=== PATIENT | female | born 1980 | race Caucasian/White ===

== ENCOUNTER 2023-04-28 09:19 | Outpatient (OUT) | payer BC, SELFPAY ==
--- NOTE | 2023-04-28 10:15 | MM_ITS ---
Patient Name: CHAR ANN MR#: [id number] : 1980 Exam Date: 04/28/2023 Ordering Doctor: DR Sanjeev Lopez . RADIOLOGY REPORT PROCEDURE: MM TOMOSYNTHESIS SCREENING BI COMPARISON: [facility]M DIAGNOSTIC 3D RAMA CAD, 04/29/2022. INDICATIONS: Screening Calculator Name NCI Breast Cancer Risk Assessment Tool 5 Year Breast Cancer Risk 0.50% Lifetime Breast Cancer Risk 9.00% Personal Breast Cancer No Personal Ovarian Cancer No Treatments None Family Cancers Grandmother-maternal with stomach cancer at age 65. LOCATION: [facility] BREAST COMPOSITION: Scattered areas fibroglandular density. FINDINGS: DIAGNOSTIC CATEGORY 0--INCOMPLETE: NEED ADDITIONAL IMAGING EVALUATION. The breasts are stable in overall size and fibroglandular configuration.Scattered benign-appearing lymph nodes are present. Scattered benign-appearing calcifications are present. RIGHT BREAST: No significant suspicious finding. LEFT BREAST: New 1.1 x 0.8 cm area of focal asymmetry lower inner quadrant, 7 o'clock position, mid to posterior breast. Spot compression and ultrasound follow-up is recommended. RECOMMENDATIONS: ADDITIONAL MAMMOGRAPHIC VIEWS REQUIRED: LEFT BREAST - spot compression ULTRASOUND: LEFT BREAST PLEASE NOTE: A NORMAL MAMMOGRAM DOES NOT EXCLUDE THE POSSIBILITY OF BREAST CANCER. A CLINICALLY SUSPICIOUS PALPABLE LUMP SHOULD BE BIOPSIED. Dictated by: Mj Silva MD on 04/28/2023 at 12:41 Approved by: Mj Silva MD on 04/28/2023 at 12:43
== END 2023-04-28 09:20 | disposition home or self-care (01) ==
LOC: MAMMO 09:24
PROVIDERS: PCP Family Medicine; Visit Provider Obstetrics & Gynecology
DX: Z12.31 Encounter for screening mammogram for malignant neoplasm of breast (principal); Z80.0 Family history of malignant neoplasm of digestive organs; R92.8 Other abnormal and inconclusive findings on diagnostic imaging of breast
CPT/HCPCS: 77063; 77067

== ENCOUNTER 2023-05-10 07:32 | Outpatient (OUT) | payer BC, SELFPAY ==
--- OUTSIDE RECORDS SUMMARY | 2023-05-10 07:38 | XMS_ITS | CCD ---
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 you are unable to reach your usual health care provider, you should return to the Emergency Department, we are available 24 hours a day. For those patients who have received Radiology results, the interpretation of your X-ray as given to you by our Urgent Care physician is only a preliminary report. The Radiologist will review your films and if there is a change in the diagnosis you will be notified by phone. Please make sure you have provided a working phone number so we can reach you if necessary. In the event that you had a lab culture while you were a patient in the Urgent Care, you will be notified by phone if there is a need to change your antibiotic. Please make sure you have provided a working phone number so we can reach you if necessary. [facility] has provided you with a complete list of medications post discharge. Please inform your primary care sales representative/provider of your visit and for further instruction on these medications. Any specific questions regarding your chronic medications and dosages should be discussed with your primary care physician(s) and/or pharmacist. Additional medications on your home medication list not specifically addressed. Please contact the ordering physician if you have questions about these medications. amphetamine-dextroam phetamine (amphetamine-dextroa mphetamine 20 mg oral tablet) 1 tab(s) Oral (given by mouth). TAKE 1 TABLET BY MOUTH EVERY DAY AT MIDDAY. lisdexamfetamine (Vyvanse 50 mg oral capsule) 1 cap(s) Oral (given by mouth) once a day (in the morning). tirzepatide (Mounjaro 7.5 mg/0.5 mL subcutaneous solution) 7.5 Milligram Subcutaneous (under the skin). INJECT 0.5 ML UNDER THE SKIN 1 (ONE) TIME PER WEEK FOR 28 DAYS.. Visit Information Allergies: Substance Reaction Symptoms Type Comments No known allergies Drug Vital Signs: Vitals and Measurements this Visit (last charted value for your 03/09/2023 visit) Vital Signs This Visit Peripheral Pulse Rate: 97 bpm Respiratory Rate: 16 br/min Systolic Blood Pressure: 136 mmHg Diastolic Blood Pressure: 94 mmHg SpO2: 100 % Oxygen Therapy: Room air Measurements This Visit Height/Length Measured: 165.1 cm Weight Measured: 106.14 kg Weight Dosin.140 kg Body Mass Index: 38.94 kg/m2 Problems List: Problem Onset Comments No Problems found Patient Education Mallet Finger Mallet finger is an injury that occurs when an object hits the tip of your st (more content not included)... [facility] XR Finger Righton 03-09-2023 XR Finger Right CLINICAL HISTORY: Pain after injury. COMPARISON: None available. TECHNIQUE: PA, lateral, and oblique radiographs of the right fourth digit were obtained. FINDINGS: There is no fracture, dislocation, significant degenerative changes, worrisome bone destruction, pathologic calcifications, or other findings of concern identified. IMPRESSION: NO DISPLACED FRACTURE OR POSTTRAUMATIC COMPLICATION IDENTIFIED. Final Signed (Electronic Signature): Tee Argueta MD 03/09/23 11:56 a Technologist: Vannesa DANGELO [facility] No Panel Informationon 10-11 No acute bony abnormalities are noted [facility] EXAMINATION: THREE XRAY VIEWS OF THE RIGHT ANKLE; THREE XRAY VIEWS OF THE RIGHT FOOT 10/11/2022 4:30 pm COMPARISON: None. HISTORY: ORDERING SYSTEM PROVIDED HISTORY: inverted ankle today, pain TECHNOLOGIST PROVIDED HISTORY: inverted ankle today, pain Reason for Exam: Right ankle pain post fall; ORDERING SYSTEM PROVIDED HISTORY: injury TECHNOLOGIST PROVIDED HISTORY: injury Reason for Exam: Right dorsal pain and bruising post fall FINDINGS: The visualized bones are normal . There is no evidence of fracture or dislocation. . The joint spaces appear well maintained. Soft tissue swelling. Calcaneal spurs [facility] Miller Romo MD - 10/11/2022 EXAMINATION: THREE XRAY VIEWS OF THE RIGHT ANKLE; THREE XRAY VIEWS OF THE RIGHT FOOT 10/11/2022 4:30 pm COMPARISON: None. HISTORY: ORDERING SYSTEM PROVIDED HISTORY: inverted ankle today, pain TECHNOLOGIST PROVIDED HISTORY: inverted ankle today, pain Reason for Exam: Right ankle pain post fall; ORDERING SYSTEM PROVIDED HISTORY: injury TECHNOLOGIST PROVIDED HISTORY: injury Reason for Exam: Right dorsal pain and bruising post fall FINDINGS: The visualized bones are normal . There is no evidence of fracture or dislocation. . The joint spaces appear well maintained. Soft tissue swelling. Calcaneal spurs IMPRESSION: No acute bony abnormalities are noted [facility] Radiology Study observation (narrative) [facility] No Panel InformationOrdered By: Miller Romo on 10-11-2022 [facility] Work Phone: XR ANKLE RIGHT (MIN 3 VIEWS) on 10-11-2022 XR ANKLE RIGHT (MIN 3 VIEWS) EXAMINATION: THREE XRAY VIEWS OF THE RIGHT ANKLE; THREE XRAY VIEWS OF THE RIGHT FOOT 10/11/2022 4:30 pm COMPARISON: None. HISTORY: ORDERING SYSTEM PROVIDED HISTORY: inverted ankle today, pain TECHNOLOGIST PROVIDED HISTORY: inverted ankle today, pain Reason for Exam: Right ankle pain post fall; ORDERING SYSTEM PROVIDED HISTORY: injury TECHNOLOGIST PROVIDED HISTORY: injury Reason for Exam: Right dorsal pain and bruising post fall FINDINGS: The visualized bones are normal . There is no evidence of fracture or dislocation. . The joint spaces appear well maintained. Soft tissue swelling. Calcaneal spurs IMPRESSION: No acute bony abnormalities are noted Interpreted by: Miller Romo MD Signed by: Miller Romo MD 10/11/22 Final result Normal [facility] XR FOOT RIGHT (MIN 3 VIEWS)o n 10-11-2022 XR FOOT RIGHT (MIN 3 VIEWS) EXAMINATION: THREE XRAY VIEWS OF THE RIGHT ANKLE; THREE XRAY VIEWS OF THE RIGHT FOOT 10/11/2022 4:30 pm COMPARISON: None. HISTORY: ORDERING SYSTEM PROVIDED HISTORY: inverted ankle today, pain TECHNOLOGIST PROVIDED HISTORY: inverted ankle today, pain Reason for Exam: Right ankle pain post fall; ORDERING SYSTEM PROVIDED HISTORY: injury TECHNOLOGIST PROVIDED HISTORY: injury Reason for Exam: Right dorsal pain and bruising post fall FINDINGS: The visualized bones are normal . There is no evidence of fracture or dislocation. . The joint spaces appear well maintained. Soft tissue swelling. Calcaneal spurs IMPRESSION: No acute bony abnormalities are noted Interpreted by: Miller Romo MD Signed by: Miller Romo MD 10/11/22 Final result Normal [facility] PAP ACOG PANEL 2: 30 to 65on 07-16-2022 . . Normal [facility] Comment on above: Result Comment: Perf ormed at: WB Performed By: #### [id number] #### [facility] [address] [address] [address] Dang Kirby Age Gdln ACOG Testing 30-65 Normal [facility] Comment on above: Performed By: #### [id number] #### [facility] [address] [address] [address] Dang Kirby DIAGNOSIS: Comment Normal [facility] Comment on above: Result Comment: NEGA TIVE FOR INTRAEPITHELIAL LESION OR MALIGNANCY. THIS SPECIMEN WAS RESCREENED PART OF OUR BELT CUTTER PROGRAM. Performed at: WB Performed By: #### [id number] #### [facility] [address] [address] [address] Dang Kirby HPV Aptima Negative Normal Negative [facility] Comment on above: Result Comment: This nucleic acid amplification test detects fourteen high-risk HPV types (16,18,31,33,35,39,45,51,52,56,58,59,66,68) without differentiation. Performed at: =G Performed By: #### [id number] #### [facility] [address] [address] [address] Dang Kirby HPV Genotype Reflex Comment Normal [facility] Comment on above: Result Comment: Crit eria not met, HPV Genotype not performed. Performed at: WB Performed By: #### [id number] #### [facility] [address] [address] [address] Dang Kirby Methodology: Comment Normal [facility] Comment on above: Result Comment: This liquid based ThinPrep(R) pap test was screened with the use of an image guided system. Performed at: WB Performed By: #### [id number] #### [facility] [address] [address] [address] Dang Kirby Note: Comment Normal [facility] Comment on above: Result Comment: The Pap smear is a screening test designed to aid in the detection of premalignant and malignant conditions of the uterine cervix. It is not a diagnostic procedure and should not be used as the sole means of detecting cervical cancer. Both false-positive and false-negative reports do occur. . Performed at: WB Performed By: #### [id number] #### [facility] [address] [address] [address] Dang Kirby Performed by: Comment Normal [facility] Comment on above: Result Comment: Flavia Stanford, Regional Construction Manager (ASCP) Performed at: WB Performed By: #### [id number] #### [facility] [address] [place] [address] Dr. Dang Kirby QC reviewed by: Comment Normal [facility] Comment on above: Result Comment: Valentino Victor, Regional Construction Manager Performed at: WB Performed By: #### [id number] #### [facility] [address] [address] [address] Dang Kirby Specimen adequacy: Comment Normal [facility] Comment on above: Result Comment: Sati sfactory for evaluation. No endocervical component is identified. Performed at: WB Performed By: #### [id number] #### [facility] [address] [place] [address] Dr. Dang Kirby Otolaryngology Office/Clinic Noteon 06-06-2022 Otolaryngology Office/Clinic Note Chief Complaint left ear infection, possible eardrum rupture History of Present Illness Patient presents today as a self-referral for concerns for possible left-sided perforated eardrum. She states that she was sick in April and was diagnosed with bilateral acute otitis media she states that the infection has resolved but she still has diminished hearing on the left side. She is wondering if her eardrum could have perforated and that would be the cause for her diminished hearing. She believes her eardrums have perforated in the past. She states she has been having worsening nasal congestion which is being treated with Flonase. She is also having rhinorrhea and postnasal drip. She denies any sinus pressure. She has not had any otorrhea and has not been running a fever. Her son is being treated for perforated tympanic membranes and he has had diminished hearing and she is wondering if that could be what she is dealing with as well. She has not had any recent audiology, her diminished hearing has been ongoing since April. No other concerns today. Review of Systems All patrick are negative unless otherwise indicated by a Y General Fevers/chills Ears Ear pain Hearing loss Tinnitus Dizziness Nose Facial pain Nasal discharge Nasal congestion Nosebleeds Throat Postnasal drainage Y Mouth lesions Hoarseness Sore Throat Physical Exam Vitals & Measurements T: 36.6 ?C (Temporal Artery) HT: 167 cm WT: 132.7 kg WT: 132.7 kg (Dosing) BMI: 47.58 General: No acute distress, alert and oriented x3 Voice: Appropriate for age. Normal tone, volume, and projection noted. Head: Normocephalic atraumatic, no abnormal masses or lesions noted Face: Facial function symmetric and equal bilaterally. Ears: External ears and mastoids appear normal bilaterally. On the right, the ear canal is narrow but clear. There is mild retraction of the tympanic membrane with no evidence of perforation. On the left, the ear canal is clear but narrow. There is moderate atelectasis and retraction of the tympanic membrane. No evidence of perforation. No evidence of middle ear effusion or infection bilaterally. Nose: External nasal dorsum is straight. Neck: Neck is supple. Laryngeal crepitus is normal. Given the patient's complaints of hearing loss, comprehensive audiogram was performed today. This was personally reviewed with the patient today showing essentially normal hearing across all frequencies, although she does have very mild high-frequency loss likely as a result of her tympanic atelectasis. Tympanograms show retracted tracings bilaterally with a -145 on the right and -165 on the left. Word recognition scores are 92% at 60 dB on the right and 88% at 60 dB on the left. Additional Vitals No qualifying data available. Assessment/Plan Chronic dysfunction of both eustachian tubes Patient with a longstanding history of chronic eustachian tube dysfunction as well as chronic nasal congestion with evidence of tympanic membrane atelectasis and retraction on examination bilaterally today, more prominent on the left than on the right This may be contributing to some of her high-frequency hearing loss on the left, but otherwise she has normal hearing. Recommended continuation of use of Flonase Sensimist on a daily basis. I will also prescribe azelastine to be used on an as-needed basis or during allergy season for further management of chronic nasal congestion and chronic eustachian tube dysfunction. No other management needed at this time. Follow-up as needed. Chronic nasal congestion Tympanic atelectasis Time Spent with the Patient 2 or more stable chronic illnesses Prescription drug management New patient level 4 Provider Comments This note was generated using voice recognition software. Though proofreading has been done, there is still a chance of some unintentional typos and/or errors. Problem List/Past Medical History Ongoing History of migraine Historical No qualifying data Medications No active medications Allergies No Known Allergies Social History Tobacco Never (less than 100 in lifetime) Use:. Electronically signed by Anand Farrar MD 06/06/22 14:19 EST Electronically signed by Karyn Campbell 06/06/2022 13:16 EST Electronically signed by Ismael Walls PA-C 06/07/2022 07:58 EST Normal [facility] MG MAMM DIAGNOSTIC 3D RAMA CA Don 04-29-2022 MG MAMM DIAGNOSTIC 3D RAMA CAD Patient: KARUNA ANN Exam Date: 04/29/2022 : 1980 Gender:F Ordering : DR SANJEEV LOPEZ . Admission #: [id number] Family : Order #: [id number] CLICK HERE TO VIEW EXAM RADIOLOGY REPORT PROCEDURE: MAMMOGRAM DIAGNOSTIC 3D BILATERAL CAD, 04/29/2022, 10:05 ULTRASOUND BREAST RIGHT LIMITED, 04/29/2022, 11:04 COMPARISON: None. INDICATIONS: Pain of breast Calculator Name NCI Breast Cancer Risk Assessment Tool 5 Year Breast Cancer Risk Not Reported. Lifetime Breast Cancer Risk Not Reported. Personal Breast Cancer No Personal Ovarian Cancer No Treatments None Family Cancers None LOCATION: [facility] BREAST COMPOSITION: Scattered areas fibroglandular density. FINDINGS: DIAGNOSTIC CATEGORY 1--NEGATIVE. RIGHT BREAST: No significant suspicious finding. Ultrasound evaluation of the anterior breast demonstrates normal appearing fibroglandular tissue. No suspicious findings to account for patient's palpable lump. Annual screening mammography recommended. LEFT BREAST: No significant suspicious finding. RECOMMENDATIONS: ROUTINE MAMMOGRAM AND CLINICAL EVALUATION IN 12 MONTHS. PLEASE NOTE: A NORMAL MAMMOGRAM DOES NOT EXCLUDE THE POSSIBILITY OF BREAST CANCER. A CLINICALLY SUSPICIOUS PALPABLE LUMP SHOULD BE BIOPSIED. Dictated by: Tee Peterson M.D. on 04/29/2022 at 14:52 Approved by: Tee Peterson M.D. on 04/29/2022 at 14:55 Normal [facility] US BREAST RIGHT LIMITEDon US BREAST RIGHT LIMITED Patient: KARUNA ANN Exam Date: 04/29/2022 : 1980 Gender:F Ordering : DR SANJEEV LOPEZ . Admission #: [id number] Family : Order #: [id number] CLICK HERE TO VIEW EXAM RADIOLOGY REPORT PROCEDURE: MAMMOGRAM DIAGNOSTIC 3D BILATERAL CAD, 04/29/2022, 10:05 ULTRASOUND BREAST RIGHT LIMITED, 04/29/2022, 11:04 COMPARISON: None. INDICATIONS: Pain of breast Calculator Name NCI Breast Cancer Risk Assessment Tool 5 Year Breast Cancer Risk Not Reported. Lifetime Breast Cancer Risk Not Reported. Personal Breast Cancer No Personal Ovarian Cancer No Treatments None Family Cancers None LOCATION: [facility] BREAST COMPOSITION: Scattered areas fibroglandular density. FINDINGS: DIAGNOSTIC CATEGORY 1--NEGATIVE. RIGHT BREAST: No significant suspicious finding. Ultrasound evaluation of the anterior breast demonstrates normal appearing fibroglandular tissue. No suspicious findings to account for patient's palpable lump. Annual screening mammography recommended. LEFT BREAST: No significant suspicious finding. RECOMMENDATIONS: ROUTINE MAMMOGRAM AND CLINICAL EVALUATION IN 12 MONTHS. PLEASE NOTE: A NORMAL MAMMOGRAM DOES NOT EXCLUDE THE POSSIBILITY OF BREAST CANCER. A CLINICALLY SUSPICIOUS PALPABLE LUMP SHOULD BE BIOPSIED. Dictated by: Tee Peterson M.D. on 04/29/2022 at 14:52 Approved by: Tee Peterson M.D. on 04/29/2022 at 14:55 Normal [facility] Coding Summaryon 04-18-2022 Coding Summary HTMLBase 64 XnylyrvuRTr3zVs+PGhl YWQ+TN7DOQUrJ23ybUMn vU7NQ9fVYS2WJSMHASOX QD1BJX2moXA0AUepU7Yl biAv UjbuvKJcZL92ENf7GOV4 eIhrADxegT4uuDBlW5f4 DjOoDL08bW24YEjwKAZj EhG8BzEqqjwkzDZn Z9loLuEhgZCdSac+PHRh YmxlIHdpZHRoPScxMDAl ZwQjrXhzZA6kNt9fAWSy LWNvbGxhcHNlOiBj y8fjVNYzLXooUH4kyXre U8LqkTP3HCKrv3z4Wi33 dHI+TWBhMFH0nBwhIPfo r686XsNve2vxYCU2 kYOqZFhoBLH9G04ny9I2 MLHgUQEgAXJ8yZK5aK8w pYqlsmpoG7WuwZUtTqK7 VFW7hGTmoF8jfJmr iyeqlS5sEke+H13WLC7C BRXOIN8FVok9K3LtPbwy dHI+DM25IHGjCR09hSOc zHQuj0bjnRx2SpNf NWWuIMO2uAceFZmsd3Sc PMDiI80xxFBnz7S3PMYs tYisbXIvIsDviIV3gZ8m ZDuaxecqn7ctqszs Ohgvl6nqev81vV80Y96b QRevTZBkHNB4ILKlGOMd wHuonr1sgN9jMm3+IDxj j0htc0clzJo0OyTs LBBzqyFfpNhsSWT1x2Uu Ab48O6PsmIbhs2TmDdg8 qw54vUOvu7I8fNE0VPdp BHHmnT8lASqbQiK2 MNHfObHguY45wVGoEJof Bw4coVndeCsnAA4uODAi dcrqQWSnsX4cPCBiqVKb qIzjDG9tIQKpyjkf a095XeOdKKU8ZJKhtDWv E1XfbA6jEzTpMNObHOSd S9UuwECyYDrnO777NApr MbQ8DXXitiGfX0Qp HTVhvPsqTwY7z4P0Xy4L n7DbfqfcGCA5DGacFOVp WbK9ZpFkMiR4H3PdWhr4 ZJQqpZfoEF0mL0Sp VRIhztzrelcizSU0BRXl UUMsnA35dWOsMGunJj0u p6Z7h291BWIhEYKewE22 Un7baXfaSPRwvILW cV7dkofcr4eyhdfvQrXu IKDhZQd8KTy3TLSheLyy HxYlLNF7YdP8ZTW0wQQr mP7voSayhhrblA0i Oyc+E60hwO2zPZT6PBX1 zbrrSKKbteHuPW53AF01 E4LfJhyxrFSfbBJ+PGRp uhKnoCieAT8dLrHe x8gmz9ViOPepY1PgAZVk NIokOsy1LYClZBB5jDE7 sZ9xVOTqVNmqo0U0hSY9 R1KwzfQebk1cg1tj LCYvWMvuQ21fqXHop7V5 HYFxxEY1VMUwqBtrPnPa wY83Aug+WQWeoHbfx4Xv Evopl5ejy3mbgLw8 IjMwJSIgdmFsaWduPSJ0 f0TmFy30B63uZHjmLVYd JIDmEACaPIZelVxvgp3w jJ4mZr3+PGNvbCB3 aAP4fP2hCHHbWkU2TCqs P148BaSpdQFfSzszd6xs b7wnmSu9XoQqVIKzptYe zPwkDVW8k4IeMu21 A87kOXarMHFxQZRxHYZs KWXwdQtqgy9flB8zOj8+ DY5zu0opda24xU14bBJ+ KBGqTVU3aAhhBTeq WWQmmS7oUBorCzP8SYVz SxYjfB69wAZbOSgvFg4p cYkcvRlaQT6vFFTmbozl f333CfRmh1ftRQQq wKCnPPdkLVV6S89wj8N3 BKLaICBlDNN8yIT0tT1y bGlnbjogbGVmdDsgdmVy lIpdWRwrFSylI622 IHRvcDsnPlBhdGllbnQg XoTfDYu6X1ZiIkz5RDQd aBigML1tuIFiFMucJl7e oOkshPpvPJ3kONNu dbjom928XjPhn0ajLMIe pLHoNOvlUDY4J88ob6G3 QBUfORVxUZV3zRV7rP2w bGlnbjogbGVmdDsg lhKsjFkdWZcwDGciY363 IHRvcDsnPkJpcnRoIERh wFY6VZ89UG62wPLzz7Y8 kFB2Y5ZpHNEwmvzn qeecyWD0RWTdXJHbpR45 Cf4bfGjcGj2hHZNxFSM3 TRIfaQIeC2EtiX9dZnAu ITEcQUUiR4GvgJSa HJnrN922ZHbvUlT1XDGo boYqP7MdKPRcbSgbShG4 c9V7Gv8EW6W6TT84KM36 kVUbv8C4nRV1J8Ny VGKbkfvgqxfssSM3HAQj NTTllD67Xe5piGksBk3l DXMxLVZ8MERluKNaL3Hf zY5pDxIiPUGyMMBj Z2FyiTHcFVrkN254QGxt IkL5LIKsmwQxQ2UrEFJk gFzwNdS3p8R1Mv8KSUw2 QC22AS90zIJod6Q4 mFK6Z4KgVTUbejeafjth oKW9NWXzXQItqJ21Af2j lEycPq7nSINgHFT1CRLr gJLjW6OvzZ8oYjAh QBUuPXPaO8JlhPSzVUwh Z388ZDdfJvK7TBSsuvVs V7AfCTQjrCbvNuQ3s4K3 Du6JPTIaCE32DKL3 sUA5UN60IV25P6XaUcyc dGFibGU+PHRhYmxlIHdp ZHRoPScxMDAlJyBzdHls QU2vWt2oPHYdXBIs mTtphDAhOmDow6huZGAd DTdoJM3cbYpeF2HvcMD1 WXOzb8a1Wt04J64aO3Ej dXA+NYLkjCG4jES3 gO7aSfTuYsW3GWexG981 CnWgqCDyEzsdk0noz2fw eMq8MeJ4JBFcagYmbIws RDI7j0ThRi49Z31u IHdpZHRoPSIxNSUiIHZh qEhlbj1deE1mTz9+PGNv pPK7uHP4pP0mBzMpYbU0 YVlgU161BwQkyJAk Xkdoo6uyc1kzkUv3NwKo FFIzyuCkvRjwQQP2f8By Oh26T7IdlRwjx9IcVqg9 so63kQXlb0L4cVU5 O3NjHNWvaeezwDIuhRfh PN0pDCJfvgqoAOKtqB3p CIWdM6t4WpQrZvD3YIbi O6NzoiQ9VUHkkMDo BVhpMCZ1M54vt1O0HMEs PRDsDXT4qQX0xL4twZas bjogbGVmdDsgdmVydGlj GSftEMhtF077FMKi uUfgSEPfjG2tPDDdbNBb fXvgGL8vHBVialrwFjeN NIMQQMalAA6QRkZGBAZV G036K6RwEpr8UVVh bDirDZ3dyMUuNDgbJm8s sJvctJvrBR1iLPWzxdms XBAtfK7rDTIbrFHatPql WU7jQVYakstly348 QuHhXGQ9MMIffUZuG3Va hE0yThJmWERbWLHwL2Vt bKJbTPhdA060ELliUwU0 KPHsiaAaX8OxBMWr iVqsEtS0t6A7Wu1kZG2h BD1wYHnkEH32TR90qFJb a8V9vXQ6Q6MrPBEspjqu inaanQD7IARuQIDp bV99uCWvKYkiTr0ll3M0 p822TQXdPYIniH72Hv8o vGwcKEYokYPDiB7rmecy r7wigsziJuXhEPOk GFh5PDm0VURjfNkmNeVl CHF1YhE1BMZ5iVCkpL5v qCtvihfslN6dUzq+Mzkg GDYtccC0L6FtGxz2 LLPwoPzmTP8sfCLqNVwt Gm0qbJjqmIsaZD3mZHJy vhvvAVFwkZ3kVCTumGGp sNfoRJ4qCTQqnxax v639SpUfCAH0YFMeiSFy N9ImcE0yVyVmVZLrKHNj O3PwlZPvZLxsB977SDvl DkQ6ZITppuKnW2Wz UBXscVviJkE0t0S1No6K KQ3IEPL1A8HdHxe7IDGs eCsrWJ5isHGeOJahHv9r qPwtpRuxIW6tWTHu mqlmFRScnL3eKYXnjJJj eWltGP0fYOJrdunsr992 GxSsRSD1UXDuhYFeX2Ro pI4oPuDjLIPvJFMx B3OtqHOeGUpuZ375MNjm TsW2VYDxiwSlH8ArGSZg lWahAsM0g4O0Tw6ANWoe dGQ+LF97qk55F0Jk YvzxXil9TSEaRBA4sUV3 wC4mVCPfBVshn5D2jXE9 M1FoppKavn9sh7kwBINf ELszH74kaGIot1G7 RGHpbHM7CXVeeNtnXnZk sM77Vyb+GGWwtVftt2Cg Uovks1fmf2tmdOo5GhHi JSIgdmFsaWduPSJ0 h6ZhMv83H89hYMgdIMYo ULWwMAUuLDLsuSqxyg2u fJ7dYp8+ZENwpOZ9dCA4 cR5sHbAiWuA9CKwl D186ZyIreRUdVgjpp4tg t5cduEf7DqTxQWQawzOd lAkoWPK4d9ZgGr42A4Xc zUqde6DyCqn4do77 hOPny5V8tKH9U2PpYUTn oinstIQbcFvwGB0dQSDw hylrNHQwrN6zZFKoB1w2 AgZwVhA1LJckK8Kt xtS2MTKgzRMpSMLioMLY iN0ldgjqr6wwtyifPaXx CJEwOYc0FAs7KSUopWic PdOpZMQ3TfY8RIW6 mTSczY4hyWqrybwkhC8x Oyc+WEu3k2ideZRcXE0i kRY0UQ66UP36sDXil7L4 nUA6H3WhFVMebzhn gufvfGZ0GFHkZGFhiW25 Co2xcRxhQe4uLVGtBRY1 ZQZvuAClT0OydH9sDuCg JFNkKZHuF8PdhBYm OOrpA831WIzdPiQ2TIGs hmXxY8EmJGPnyNygJtN0 c8Z4Ea2PJB28DK19ZL72 rRLjx2E8cOA7M2Cf HCVatevdwbabhKK7HDFl QANqnF41Ad8nfUhcDl6f PNVyRPG5RNSqoEStW9Vh oK6tPbTbLMBvCUQf K4GenTKfTYsmI535GHtz WgD0LVXqvcBrP4XyUBGr aIpuOkJ1s0H2Sf3IMw48 SX63IX33zCGdm9E5 pST9S8IzTGQmovexupxp jDO0CHEeDRUsiD42Cf8l ePzgLj7zIMVuNHX1HXXz wSLsK5NkiO2rJeWu IQQaHWTzF0QwsCDzOGmz Q340AMypUlE6BGIjeiOe C1QrJVQavAjvVlU4p2D1 Bx0QJQbkevl4W8Mg PjwvdHI+SX62WKWvUC47 gNQikUOhu0hboNu1QdHp AHUdIZW2wZfhQHpjc6Om PYDsG26yjHOsr8M5 IGN (more content not included)... Normal [facility] ED Clinical Summaryon 2022 ED Clinical Summary [facility] ? Urgent Care [address] [place], [place] [id number] Clinical Summary PERSON INFORMATION Name: KARUNA ANN Age: 41 Years Sex: FEMALE : 1980 MRN: Acct#: Visit Reason: UC - Headache; BI LAT EAR PAIN, DIZZINESS, HEADACHE, CONGESTION Arrival: 04/08/2022 16:57:05 Discharge: 04/08/2022 19:05:00 LOS: 000 02:08 Check In: 04/08/2022 16:57:05 Checkout: 04/08/2022 19:05:00 Address: [address] [place] [id number] PCP: Mary Díaz DO PROVIDER INFORMATION Provider Role Assigned Unassigned Ad Ortega ED PA 04/08/2022 17:05:14 Mario RN, Olivia ED Nurse 04/08/2022 17:11:28 VITALS INFORMATION Vital Sign Triage Latest Temperature Tympanic Temperature Temporal Artery Pulse Rate O2 Sat 98 % 98 % Respiratory Rate Blood Pressure /90 mmHg /90 mmHg MEDICAL INFORMATION Medications Given: Medication Dose Route acetaminophen (Tylenol) 1000 mg PO ondansetron (!-Zofran) 4 mg PO ketorolac 60 mg IM Allergy Information: No known allergies PHYSICIAN DOCUMENTATION DISCHARGE INFORMATION: Discharge Disposition: Home Discharge Location: Home PATIENT EDUCATION INFORMATION Instructions: Otitis Media, Adult Follow-Up: With: Address: When: Mary Díaz [address] [place] [address] Business (1) Comments: Patient seen in urgent care and was found to have right severe acute otitis media, moderate severe left acute otitis media, bilateral ear disequilibrium, effusion, mild secondary nausea. She has a migraine headache the right side. No mastoid pain. Here in the the urgent care treated with Toradol 60 mg, Tylenol 100mg, Zofran 4mg. Advised pt to begin Augmentin 875 mg twice daily, Zofran every 8 hours as needed at home, Tylenol 500 mg every 4-6 hours next dose after 10 PM. Pain at discharge 09/10 Patient was advised if she develops worst headache of her life, unable to walk in a straight line, high fever to return to ER. She does not want further evaluation. DIAGNOSIS: Acute otitis media, bilateral; Headache, classical migraine; Inner ear dysfunction; Mild nausea Patient Understands: Yes - Patient/family/careg iver verbalizes understanding of instructions given Comment: Normal [facility] ED Patient Summaryon 023 ED Patient Summary [facility] ? Urgent Care [address] [place] [address] PATIENT DISCHARGE INSTRUCTIONS Patient Information Name: KARUNA ANN Age: 41 Years Date of : 1980 Reason For Visit: UC - Headache; BI LAT EAR PAIN, DIZZINESS, HEADACHE, CONGESTION Arrival Time: 04/08/2022 16:57:05 Primary Care Physician: Mary Díaz DO Attending Physician: Ad Ortega Comment: Patient Education With: Address: When: Mary Díaz [address], [place] [id number] Business (1) Comments: Patient seen in urgent care and was found to have right severe acute otitis media, moderate severe left acute otitis media, bilateral ear disequilibrium, effusion, mild secondary nausea. She has a migraine headache the right side. No mastoid pain. Here in the the urgent care treated with Toradol 60 mg, Tylenol 100mg, Zofran 4mg. Advised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 SYSTEM PROVIDED HISTORY: N/V/D; ab pain; possible Hx diverticulitis TECHNOLOGIST PROVIDED HISTORY: N/V/D; ab pain; possible Hx diverticulitis Decision Support Exception - unselect if not a suspected or confirmed emergency medical condition->Emergency Medical Condition (MA) Reason for Exam: Abdomen pain 41-year-old female with nausea, vomiting, diarrhea, abdominal pain FINDINGS: Lower Chest: Mild bibasilar atelectasis and respiratory motion. No free intra-abdominal air. Organs: Fatty liver. Prior cholecystectomy. Kidneys, adrenal glands, spleen, and pancreas grossly unremarkable in appearance. No obstructing calculus, hydronephrosis or hydroureter. GI/Bowel: No significant dilation of small bowel loops to suggest small bowel obstruction. Mild colonic diverticulosis. Fluid is seen within small bowel loops and ascending colon which can be seen as sequela of a gastroenteritis. Evidence of prior appendectomy. Pelvis: Uterus and adnexa grossly unremarkable. Pelvic phleboliths. No free fluid in the pelvis. Urinary bladder is collapsed. No inguinal or pelvic sidewall lymphadenopathy. Peritoneum/Retroperi toneum: Abdominal aorta normal in appearance and caliber. No retroperitoneal lymphadenopathy. Psoas muscles normal in size and symmetric in appearance. Bones/Soft Tissues: Small midline fat containing periumbilical hernia measuring up to 3.6 x 1.7 cm on image 120, series 2. Mild degenerative changes in the lumbar spine. Severe disc space narrowing at L5-S1. Mild levoscoliosis of the lumbar spine. [facility] R[facility] CONSOL[facility] Papito Mishra MD - 01/03/2022 EXAMINATION: CT OF THE ABDOMEN AND PELVIS WITH CONTRAST 01/03/2022 12:33 pm TECHNIQUE: CT of the abdomen and pelvis was performed with the administration of intravenous contrast. Multiplanar reformatted images are provided for review. Automated exposure control, iterative reconstruction, and/or weight based adjustment of the mA/kV was utilized to reduce the radiation dose to as low as reasonably achievable. COMPARISON: None HISTORY: ORDERING SYSTEM PROVIDED HISTORY: N/V/D; ab pain; possible Hx diverticulitis TECHNOLOGIST PROVIDED HISTORY: N/V/D; ab pain; possible Hx diverticulitis Decision Support Exception - unselect if not a suspected or confirmed emergency medical condition->Emergency Medical Condition (MA) Reason for Exam: Abdomen pain 41-year-old female with nausea, vomiting, diarrhea, abdominal pain FINDINGS: Lower Chest: Mild bibasilar atelectasis and respiratory motion. No free intra-abdominal air. Organs: Fatty liver. Prior cholecystectomy. Kidneys, adrenal glands, spleen, and pancreas grossly unremarkable in appearance. No obstructing calculus, hydronephrosis or hydroureter. GI/Bowel: No significant dilation of small bowel loops to suggest small bowel obstruction. Mild colonic diverticulosis. Fluid is seen within small bowel loops and ascending colon which can be seen as sequela of a gastroenteritis. Evidence of prior appendectomy. Pelvis: Uterus and adnexa grossly unremarkable. Pelvic phleboliths. No free fluid in the pelvis. Urinary bladder is collapsed. No inguinal or pelvic sidewall lymphadenopathy. Peritoneum/Retroperi toneum: Abdominal aorta normal in appearance and caliber. No retroperitoneal lymphadenopathy. Psoas muscles normal in size and symmetric in appearance. Bones/Soft Tissues: Small midline fat containing periumbilical hernia measuring up to 3.6 x 1.7 cm on image 120, series 2. Mild degenerative changes in the lumbar spine. Severe disc space narrowing at L5-S1. Mild levoscoliosis of the lumbar spine. IMPRESSION: 1. Fluid within small bowel loops and ascending colon which can be seen as sequela of a gastroenteritis. 2. Prior appendectomy. Prior cholecystectomy. 3. Fatty liver. 4. Mild colonic diverticulosis. 5. Small midline fat containing periumbilical hernia. 6. No clear evidence for small bowel obstruction. [facility] [employer] Phone: Radiology Study observation (narrative) [facility] [employer] Phone: CT ABDOMEN PELVIS W IV CONTR AST Additional Contrast? NoneOrdered By: Papito Mishra on 01-03-2022 [facility] [employer] Phone: Comp Metabolic Pr/rfx MGon 1 ALT [Catalytic activity/Vol] 28 U/L Normal 5-33 [facility] Comment on above: Performed By: #### H CG, LIP, MG, CDP, CMPX #### [id number] [place] [address] Technical Analyst: Estevan Corcoran MD (cont.) [facility] Comment on above: Result Comment: Aver age GFR for 30-39 years old: 107 mL/min/1.73sq m Chronic Kidney Disease: <60 mL/min/1.73sq m Kidney failure: <15 mL/min/1.73sq m eGFR calculated using average adult body mass. Additional eGFR calculator available at: http://www.[employer]/multiple_crcl_2012.htm Performed By: #### H CG, LIP, MG, CDP, CMPX #### [facility] [id number] [place] [address] Technical Analyst: Estevan Corcoran MD Albumin [Mass/Vol] 4.3 g/dL Normal 3.5-5.2 [facility] Comment on above: Performed By: #### H CG, LIP, MG, CDP, CMPX #### [place] [address] Technical Analyst: Estevan Corcoran MD Albumin/Glob Ratio 1.4 Normal 1.0-2.5 [facility] Comment on above: Performed By: #### H CG, LIP, MG, CDP, CMPX #### [place] [address] Technical Analyst: Estevan Corcoran MD Alkaline Phos 105 U/L High 35-104 [facility] Comment on above: Performed By: #### H CG, LIP, MG, CDP, CMPX #### [place] [address] Technical Analyst: Estevan Corcoran MD Anion gap [Moles/Vol] 13 mmol/L Normal 9-17 [facility] Comment on above: Performed By: #### H CG, LIP, MG, CDP, CMPX #### [place] [address] Technical Analyst: Estevan Corcoran MD AST [Catalytic activity/Vol] 26 U/L Normal <32 [facility] Comment on above: Performed By: #### H CG, LIP, MG, CDP, CMPX #### [place] [address] Technical Analyst: Estevan Corcoran MD Bilirubin [Mass/Vol] 0.3 mg/dL Normal 0.3-1.2 [facility] Comment on above: Performed By: #### H CG, LIP, MG, CDP, CMPX #### [place] [address] Technical Analyst: Estevan Corcoran MD Calcium [Mass/Vol] 8.7 mg/dL Normal 8.6-10.4 [facility] Comment on above: Performed By: #### H CG, LIP, MG, CDP, CMPX #### [place] [address] Technical Analyst: Estevan Corcoran MD Chloride [Moles/Vol] 104 mmol/L Normal 98-107 [facility] Comment on above: Performed By: #### H CG, LIP, MG, CDP, CMPX #### [place] [address] Technical Analyst: Estevan Corcoran MD CO2 [Moles/Vol] 21 mmol/L Normal 20-31 [facility] Comment on above: Performed By: #### H CG, LIP, MG, CDP, CMPX #### [place] [address] Technical Analyst: Estevan Corcoran MD Creatinine [Mass/Vol] 0.60 mg/dL Normal 0.50-0.90 [facility] Comment on above: Performed By: #### H CG, LIP, MG, CDP, CMPX #### [place] [address] Technical Analyst: Estevan Corcoran MD GFR, Amer >60 Normal >60 [facility] Comment on above: Performed By: #### H CG, LIP, MG, CDP, CMPX #### [place] [address] Technical Analyst: Estevan Corcoran MD GFR,non Amer >60 Normal >60 [facility] Comment on above: Performed By: #### H CG, LIP, MG, CDP, CMPX #### [address] [id number] Technical Analyst: Estevan Corcoran MD Glucose [Mass/Vol] 105 mg/dL High 70-99 [facility] Comment on above: Performed By: #### H CG, LIP, MG, CDP, CMPX #### [id number] Technical Analyst: Estevan Corcoran MD Potassium [Moles/Vol] 3.5 mmol/L Low 3.7-5.3 [facility] Comment on above: Performed By: #### H CG, LIP, MG, CDP, CMPX #### [place] [address] Technical Analyst: Estevan Corcoran MD Protein [Mass/Vol] 7.4 g/dL Normal 6.4-8.3 [facility] Comment on above: Performed By: #### H CG, LIP, MG, CDP, CMPX #### [place] [address] Technical Analyst: Estevan Corcoran MD Sodium [Moles/Vol] 138 mmol/L Normal 135-144 [facility] Comment on above: Performed By: #### H CG, LIP, MG, CDP, CMPX #### [id number] Technical Analyst: Estevan Corcoran MD Urea nitrogen [Mass/Vol] 12 mg/dL Normal 6-20 [facility] Comment on above: Performed By: #### H CG, LIP, MG, CDP, CMPX #### [address] [address] Technical Analyst: Estevan Corcoran MD Comprehensive Metabolic Pane l w/ Reflex to MGon 01-03-2022 Albumin [Mass/Vol] 4.3 g/dL 3.5 - 5.2 g/dL [facility] Albumin/Globulin [Mass ratio] 1.4 {ratio} 1 - 2.5 [facility] ALP (Bld) [Catalytic activity/Vol] 105 U/L High 35 - 104 U/L [facility] ALT [Catalytic activity/Vol] 28 U/L 5 - 33 U/L [facility] Anion gap [Moles/Vol] 13 mmol/L 9 - 17 mmol/L [facility] AST [Catalytic activity/Vol] 26 U/L NINF - 32 U/L [facility] Bilirubin [Mass/Vol] 0.3 mg/dL 0.3 - 1 .2 mg/dL [facility] Calcium [Mass/Vol] 8.7 mg/dL 8.6 - 10. 4 mg/dL [facility] Chloride [Moles/Vol] 104 mmol/L 98 - 10 7 mmol/L [facility] CO2 [Moles/Vol] 21 mmol/L 20 - 31 mmol/L [facility] Creatinine [Mass/Vol] 0.6 mg/dL 0.5 - 0.9 mg/dL [facility] GFR >60 60 - PI NF mL/min [facility] GFR Non- >60 60 - PINF mL/min [facility] GFR/1.73 sq M.predicted MDRD (S/P/Bld) [Vol rate/Area] [facility] Comment on above: Average GFR for 30-3 9 years old: 107 mL/min/1.73sq m Chronic Kidney Disease: <60 mL/min/1.73sq m Kidney failure: <15 mL/min/1.73sq m eGFR calculated using average adult body mass. Additional eGFR calculator available at: http://www.[employer]/multiple_crcl_2012.htm Glucose [Mass/Vol] 105 mg/dL High 70 - 99 mg/dL [facility] Interpretation and review of laboratory results Abnormal [facility] Potassium [Moles/Vol] 3.5 mmol/L Low 3.7 - 5.3 mmol/L [facility] Protein [Mass/Vol] 7.4 g/dL 6.4 - 8.3 g/dL [facility] Sodium [Moles/Vol] 138 mmol/L 135 - 144 mmol/L [facility] Urea nitrogen (BldV) [Mass/Vol] 12 mg/dL 6 - 20 mg/dL [facility] HCG Qualitative, Serumon hCG Qual Negative NEGATIVE [facility] Comment on above: Specimens with hCG l evels near the threshold of the test (25 mIU/mL) may give a negative or indeterminate result. In such cases, another test should be performed with a new specimen in 48-72 hours. If early is suspected clinically in this setting, correlation with quantitative serum b-hCG level is suggested. [facility] has confirmed the use of plasma for this test. This has not been cleared or approved by the U.S. Food and Drug Administration. The FDA has determined that such clearance is not necessary. [facility] HCG Screen, Bloodon 01-04-20 HCG Screen, Blood Negative Normal NEG [facility] Comment on above: Result Comment: Spec imens with hCG levels near the threshold of the test (25 mIU/mL) may give a negative or indeterminate result. In such cases, another test should be performed with a new specimen in 48-72 hours. If early is suspected clinically in this setting, correlation with quantitative serum b-hCG level is suggested. [facility] for [facility] test. This has not been cleared or approved by the U.S. Food and Drug Administration. The FDA has determined that such clearance is not necessary. Performed By: #### H CG, LIP, MG, CDP, CMPX #### [address] [address] Technical Analyst: Estevan Corcoran MD Lipaseon 01-03-2022 Lipase [Catalytic activity/Vol] 20 U/L Normal 13-60 [facility] Comment on above: Performed By: #### H CG, LIP, MG, CDP, CMPX #### [id number] [place] [address] Technical Analyst: Estevan Corcoran MD Lipase [Catalytic activity/Vol] 20 U/L 13 - 60 U/L [facility] Magnesiumon 01-03-2022 Magnesium [Mass/Vol] 2.1 mg/dL Normal 1.6-2.6 [facility] Comment on above: Performed By: #### H CG, LIP, MG, CDP, CMPX #### [id number] [place] [address] Technical Analyst: Estevan Corcoran MD Magnesium [Mass/Vol] 2.1 mg/dL 1.6 - 2 .6 mg/dL [facility] Microscopic Urinalysison Bacteria, UA MANY Abnormal None [facility] Epithelial Cells UA TOO NUMEROUS TO COUNT [facility] Interpretation and review of laboratory results Abnormal [facility] Other Observations UA Utilizing a urinalysis as the only screening method to exclude a potential uropathogen can be unreliable in many patient populations. Rapid screening tests are less sensitive than culture and if UTI is a clinical possibility, culture should be considered despite a negative urinalysis. Abnormal NOT REQ. [facility] RBC, UA 2 TO 5 [facility] WBC, UA 2 TO 5 [facility] UA w/Reflex Cultureon 2021 Bilirubin, SemiQt,Ur Negative Normal NEG [facility] Comment on above: Performed By: #### U AX, UMICAO ####[address] [address] Lab Director: Estevan Corcoran MD Blood, Urine LARGE Abnormal NEG [facility] Comment on above: Performed By: #### U AX, UMICAO ####[address] [address] Lab Director: Estevan Corcoran MD Clarity (U) Cloudy Abnormal CLEAR [facility] Comment on above: Result Comment: FOUL ODOR Performed By: #### U AX, UMICAO ####[address] [address] Lab Director: Estevan Corcoran MD Color (U) Yellow Normal YEL [facility] Comment on above: Performed By: #### U AX, UMICAO ####[address] [address] Lab Director: Estevan Corcoran MD Glucose Ql (U) Negative Normal NEG [facility] Comment on above: Performed By: #### U AX, UMICAO ####[address] [address] Lab Director: Estevan Corcoran MD Ketones Ql (U) Negative Normal NEG [facility] Comment on above: Performed By: #### U AX, UMICAO ####[address] [address] Lab Director: Estevan Corcoran MD Leukocyte esterase Test strip Ql (U) Negative Normal NEG [facility] Comment on above: Performed By: #### U AX, UMICAO ####[address] [address] Lab Director: Estevan Corcoran MD Nitrite,Ur Negative Normal NEG [facility] Comment on above: Performed By: #### U AX, UMICAO ####[address] [address] Lab Director: Estevan Corcoran MD PH,Ur 6.0 Normal 5.0-8.0 [facility] Comment on above: Performed By: #### U AX, UMICAO ####[place] [address] Lab Director: Estevan Corcoran MD Protein Ql (U) Negative Normal NEG [facility] Comment on above: Performed By: #### U AX, UMICAO ####[place] [address] lab Director: Estevan Corcoran MD Spec. [place],Ur 1.108 High 1.005-1.030 [facility] Comment on above: Result Comment: POST IV CONTRAST Performed By: #### U AX, UMICAO ####[place] [address] lab Director: Estevan Corcoran MD Urobilinogen,Ur Normal Normal NORM [facility] Comment on above: Performed By: #### U AX, UMICAO ####[place] [address] lab Director: Estevan Corcoran MD Urinalysis with Reflex to Cu ltureon 01-03-2022 Bilirubin Urine Negative NEGATIVE [facility] Talking Data Color, UA Yellow Yellow [facility] Glucose, Ur Negative NEGATIVE [facility] Interpretation and review of laboratory results Abnormal [facility] Ketones Ql (U) Negative NEGATIVE [facility] Leukocyte esterase Test strip Ql (U) Negative NEGATIVE [facility] Nitrite, Urine Negative NEGATIVE [facility] pH, UA 6.0 5 - 8 [facility] Protein, UA Negative NEGATIVE [facility] Specific [place], UA 1.108 High 1.005 - 1.03 [facility] Comment on above: POST IV CONTRAST Turbidity UA Cloudy Abnormal Clear [facility] Comment on above: FOUL ODOR Urine Hgb LARGE Abnormal NEGATIVE [facility] Urobilinogen, Urine Normal Normal [facility] Urinalysis,Microon 2 Bacteria MANY Abnormal NONE [facility] Comment on above: Performed By: #### U AX, UMICAO ####[address] [id number] Lab Director: Estevan Corcoran MD Epithelial cells LM Ql (Urine sed) TOO NUMEROUS TO COUNT Normal 0-5 [facility] Comment on above: Performed By: #### U AX, UMICAO ####[address] [address] Lab Director: Estevan Corcoran MD Other Observations Utilizing a urinalysis as the only screening method to exclude a potential Abnormal NREQ [facility] Comment on above: Result Comment: urop athogen can be unreliable in many patient populations. Rapid screening tests are less sensitive than culture and if UTI is a clinical possibility, culture should be considered despite a negative urinalysis. Performed By: #### U AX, UMICAO ####[address] [address] Lab Director: Estevan Corcoran MD Urine RBC's 2 TO 5 Normal 0-2 [facility] Comment on above: Performed By: #### U AX, UMICAO ####[address] [id number] Lab Director: Estevan Corcoran MD Urine WBC's 2 TO 5 Normal 0-5 [facility] Comment on above: Performed By: #### U AX, UMICAO ####[address] [id number] Lab Director: Estevan Corcoran MD CT LUMBAR SPINE WO CONTRASTo n 08-19-2021 Degenerative disc disease at L4-L5 and L5-S1. At L4-L5, there is a broad-based left paracentral left foraminal disc protrusion/herniatio n. At L5-S1, there is a partially calcified left paracentral disc herniation with slight inferior extension. The left-sided disc disease is of uncertain etiology in this patient with history of right leg pain. Follow-up MRI may be helpful. [facility] CONSOLIDATED EXAMINATION: CT OF THE LUMBAR SPINE WITHOUT CONTRAST 08/19/2021 TECHNIQUE: CT of the lumbar spine was performed without the administration of intravenous contrast. Multiplanar reformatted images are provided for review. Adjustment of mA and/or kV according to patient size was utilized. Automated exposure control, iterative reconstruction, and/or weight based adjustment of the mA/kV was utilized to reduce the radiation dose to as low as reasonably achievable. COMPARISON: None HISTORY: ORDERING SYSTEM PROVIDED HISTORY: pain TECHNOLOGIST PROVIDED HISTORY: pain Decision Support Exception - unselect if not a suspected or confirmed emergency medical condition->Emergency Medical Condition (MA) Is the patient ?->No Reason for Exam: Pain to low back and down rt leg for a week or so with no known injury. Bruising to site of low back pain FINDINGS: BONES/ALIGNMENT: Study is limited by obesity. There is a minimal lumbar levoscoliosis. Vertebral body alignment is otherwise unremarkable. The vertebral body heights are maintained. No osseous destructive lesion is seen. No acute fracture or traumatic malalignment. DEGENERATIVE CHANGES: There is degenerative disc disease at L5-S1 with moderate to severe disc space narrowing and mild spondylosis. There is a partially calcified left paracentral disc herniation with slight inferior extension impinging on the thecal sac and left S1 nerve root. At L4-L5, there is a left foraminal and left paracentral disc protrusion/herniatio n (axial image [id number]). SOFT TISSUES/RETROPERITON EUM: No paraspinal mass is seen. [facility] Boyd Beatty MD - 08/19/2021 EXAMINATION: CT OF THE LUMBAR SPINE WITHOUT CONTRAST 08/19/2021 TECHNIQUE: CT of the lumbar spine was performed without the administration of intravenous contrast. Multiplanar reformatted images are provided for review. Adjustment of mA and/or kV according to patient size was utilized. Automated exposure control, iterative reconstruction, and/or weight based adjustment of the mA/kV was utilized to reduce the radiation dose to as low as reasonably achievable. COMPARISON: None HISTORY: ORDERING SYSTEM PROVIDED HISTORY: pain TECHNOLOGIST PROVIDED HISTORY: pain Decision Support Exception - unselect if not a suspected or confirmed emergency medical condition->Emergency Medical Condition (MA) Is the patient ?->No Reason for Exam: Pain to low back and down rt leg for a week or so with no known injury. Bruising to site of low back pain FINDINGS: BONES/ALIGNMENT: Study is limited by obesity. There is a minimal lumbar levoscoliosis. Vertebral body alignment is otherwise unremarkable. The vertebral body heights are maintained. No osseous destructive lesion is seen. No acute fracture or traumatic malalignment. DEGENERATIVE CHANGES: There is degenerative disc disease at L5-S1 with moderate to severe disc space narrowing and mild spondylosis. There is a partially calcified left paracentral disc herniation with slight inferior extension impinging on the thecal sac and left S1 nerve root. At L4-L5, there is a left foraminal and left paracentral disc protrusion/herniatio n (axial image [id number]). SOFT TISSUES/RETROPERITON EUM: No paraspinal mass is seen. IMPRESSION: Degenerative disc disease at L4-L5 and L5-S1. At L4-L5, there is a broad-based left paracentral left foraminal disc protrusion/herniatio n. At L5-S1, there is a partially calcified left paracentral disc herniation with slight inferior extension. The left-sided disc disease is of uncertain etiology in this patient with history of right leg pain. Follow-up MRI may be helpful. [email or web address] Phone: Radiology Study observation (narrative) [email or web address] Phone: CT LUMBAR SPINE WO CONTRASTO rdered By: Boyd Beatty on 08-19-2021 [email or web address] Phone: Vital Signs Date Time Vital Sign Value Performing Clinician Facility 01-02-2023 10:00-0400 Body height 162.56 cm Johnathon Winter Other [facility] Other 01-02-2023 10:00-0400 Body mass index (BMI) [Ratio] 42.91 kg/m2 Johnathon Winter Other [facility] Other 01-02-2023 10:00-0400 Body weight 113.4 kg Johnathon Winter Other [facility] Other 01-02-2023 10:00-0400 Diastolic blood pressure 82 mm[Hg] Johnathon Winter Other [facility] Other 01-02-2023 10:00-0400 Systolic blood pressure 126 mm[Hg] Johnathon Winter Other [facility] Other 2022 11:00-0400 Body height 162.56 cm Johnathon Winter Other [facility] Other 2022 11:00-0400 Body mass index (BMI) [Ratio] 44.56 kg/m2 Johnathon Winter Other [facility] Other 2022 11:00-0400 Body weight 117.75 kg Johnathon Winter Other [facility] Other 2022 11:00-0400 Diastolic blood pressure 101 mm[Hg] Johnathon Winter Other [facility] Other 2022 11:00-0400 SaO2% (BldA) [Mass fraction] 100 % Johnathon Winter Other [facility] Other 2022 11:00-0400 Systolic blood pressure 138 mm[Hg] Johnathon Winter Other [facility] Other 10-11-2022 18:45-0400 Body height 165.1 cm Roxie Garcia MD Work Phone: [facility] 10-11-2022 18:45-0400 Body mass index (BMI) [Ratio] 43.93 kg/m2 Roxie Garcia MD Work Phone: [employer] 10-11-2022 18:45-0400 Body temperature 99 [degF] Roxie Garcia MD Work Phone: [facility] [employer] 10-11-2022 18:45-0400 Body weight 119.75 kg Roxie Garcia MD Work Phone: [facility] [employer] 10-11-2022 18:45-0400 Diastolic blood pressure 108 mm[Hg] Roxie Garcia MD Work Phone: [facility] [employer] 10-11-2022 18:45-0400 Heart rate 87 /min Roxie Garcia MD Work Phone: [facility] [employer] 10-11-2022 18:45-0400 Respiratory rate 16 /min Roxie Garcia MD Work Phone: [facility] [employer] 10-11-2022 18:45-0400 SaO2% (BldA) [Mass fraction] 98 % Roxie Garcia MD Work Phone: [facility] [employer] 10-11-2022 18:45-0400 Systolic blood pressure 160 mm[Hg] Roxie Garcia MD Work Phone: [facility] [employer] 01-03-2022 13:54-0400 Diastolic blood pressure 95 mm[Hg] Teo Thomas DO [employer] 01-03-2022 13:54-0400 Heart rate 61 /min Teo Thomas DO [facility] 01-03-2022 13:54-0400 SaO2% (BldA) [Mass fraction] 100 % Teo Thomas DO [facility] 01-03-2022 13:54-0400 Systolic blood pressure 142 mm[Hg] Teo Thomas DO [facility] 01-03-2022 11:46-0400 Body height 165.1 cm Teo Thomas DO [facility] 01-03-2022 11:46-0400 Body mass index (BMI) [Ratio] 44.1 kg/m2 Teo Thomas DO [employer] [facility] [employer] 01-03-2022 11:46-0400 Body temperature 97.7 [degF] Teo [facility] [employer] 01-03-2022 11:46-0400 Body weight 120.2 kg Teo Thomas DO [employer] [facility] [employer] 01-03-2022 11:46-0400 Respiratory rate 16 /min Teo Morean DO [facility] 08-19-2021 18:03-0400 Diastolic blood pressure 98 mm[Hg] Radha Sanders MD Work Phone: [employer] 08-19-2021 18:03-0400 Heart rate 92 /min Radha Sanders MD Work Phone: [employer] 08-19-2021 18:03-0400 Respiratory rate 16 /min Radha Sanders MD Work Phone: [employer] 08-19-2021 18:03-0400 SaO2% (BldA) [Mass fraction] 96 % Radha Sanders MD Work Phone: [employer] 08-19-2021 18:03-0400 Systolic blood pressure 145 mm[Hg] Radha Sanders MD Work Phone: [employer] 08-19-2021 16:28-0400 Body height 165.1 cm Radha Sanders MD Work Phone: [employer] 08-19-2021 16:28-0400 Body mass index (BMI) [Ratio] 45.76 kg/m2 Radha Sanders MD Work Phone: [employer] 08-19-2021 16:28-0400 Body temperature 98.6 [degF] Radha Sanders MD Work Phone: [employer] 08-19-2021 16:28-0400 Body weight 124.74 kg Radha Sanders MD Work Phone: [employer] Encounters Encounter Date Encounter Type Care Provider Facility Start: 05-04-2023 End: 05-05-2023 ambulatory OSWALDO DEE Not Available Start: 05-04-2023 End: 05-04-2023 Office outpatient visit 10 minutes Oswaldo Dee [employer]INE[employer] Work Phone: [facility] Comment on above: 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); Pain in finger of right hand Start: 05-01-2023 End: 05-01-2023 ambulatory SANJEEV LOPEZ Not Available Start: 04-19-2023 End: 04-19-2023 ambulatory Scottie Lyn Other [facility] Other Start: 04-19-2023 Telephone encounter Scottie Lyn [facility] Start: 04-14-2023 End: 04-14-2023 Orders Only Serina Rodriguez RMA [facility] Comment on above: Back pain, unspecifi ed back location, unspecified back pain laterality, unspecified chronicity (Primary Dx) Start: 04-12-2023 End: 04-12-2023 ambulatory Johnathon Winter Other [facility] Other Start: 04-12-2023 Telephone encounter Johnathon Winter [facility] Start: 04-11-2023 End: 04-11-2023 ambulatory Johnathon Winter Other [facility] Other Start: 04-11-2023 Telephone encounter Johnathon Winter [facility] Start: 04-10-2023 End: 04-10-2023 ambulatory Johnathon Winter Other [facility] Other Start: 04-10-2023 Encounter by computer link Johnathon lee [facility] Start: 03-16-2023 End: 03-16-2023 ambulatory OSWALDO DEE Not Available Start: 03-09-2023 End: 03-09-2023 ambulatory Sanchez DICKEY Facility:[facility] Start: 01-30-2023 End: 01-30-2023 ambulatory Johnathon Winter Other [facility] Other Start: 01-30-2023 Telephone encounter Johnathon Winter [facility] Start: 01-02-2023 End: 01-02-2023 ambulatory Johnathon Winter Other [facility] Other Start: 01-02-2023 Office outpatient vi sit 15 minutes Johnathonarden Winter [facility] Start: 12-09-2022 End: 12-09-2022 ambulatory Johnathon Winter Other [facility] Other Start: 12-09-2022 Telephone encounter Johnathon Winter [facility] Start: 12-08-2022 End: 12-08-2022 ambulatory Johnathon Winter Other [facility] Other Start: 12-08-2022 Telephone encounter Johnathon Winter [facility] Start: 2022 End: 2022 ambulatory Johnathon Winter Other [facility] Other Start: 2022 Office outpatient ne w 30 minutes Johnathon Laura [facility] Start: 10-11-2022 End: 10-11-2022 Emergency department patient visit JOHNATHON WINTER [facility] Start: 10-11-2022 End: 10-11-2022 Emergency department patient visit Roxie Garcia MD Work Phone: [facility] Comment on above: Sprain of right ankl e, unspecified ligament, initial encounter (Primary Dx) Start: 07-11-2022 End: 07-11-[address] SANJEEV LOPEZ . Facility:[facility] Start: 06-06-2022 End: 06-07-2022 ambulatory Anand Farrar MD Facility[facility] Start: 05-10-2022 ambulatory Anand Sweeney MD Facility[facility] Start: 04-29-2022 End: 04-30-[address] SANJEEV LOPEZ . Facility:[facility] Start: 04-08-2022 End: 04-08-2022 ambulatory Mary Díaz Facility:[facility] Start: 02-16-2022 End: 02-16-2022 Emergency department patient visit JOHNATHON WINTER [facility] Start: 01-03-2022 End: 01-03-2022 Emergency department patient visit JOHNATHON WINTER [facility] Start: 01-03-2022 End: 01-03-2022 Emergency department patient visit Teo Thomas DO [facility] ED Comment on above: Gastroenteritis (Neetu emil Dx) Start: 08-19-2021 End: 08-19-2021 Emergency department patient visit Radha Sanders MD Work Phone: [facility] ED Comment on above: Herniated lumbar int ervertebral disc (Primary Dx) Procedures Date Procedure Procedure Detail Performing Clinician Start: 10-11-2022 Radex ankle complete minimum 3 views Baliee Lew [employer] - COMMERCIAL DESIGNER Work Phone: Start: 01-03-2022 Urinalysis microscop ic only Zachariah Cristian [employer] - HARB[employer] ENGINEER Work Phone: Start: 01-03-2022 Urnls dip stick/tabl et rgnt auto w/o microscopy Zachariah Foster [employer] - HARBOR ENGINEER Work Phone: Start: 01-03-2022 Ct abdomen & pelvis w/contrast material Zachariah Foster [employer] - HARBOR ENGINEER Work Phone: Start: 01-03-2022 Assay of lipase Zachariah Cristian [employer] - HARBOR ENGINEER Work Phone: Start: 12-01-2021 Adult depression scr eening assessment Serina Rodriguez RMA Start: 08-19-2021 Ct lumbar spine w/o contrast material Radha Sanders MD Work Phone: Plan of Treatment Date Care Activity Detail Author Start: 04-14-2024 Adult [facility]ening [facility] Start: 04-14-2024 Tobacco Screening [facility] Start: 07-17-2023 End: 07-17-2023 Patient encounter procedure 07/17/2023 10:00 AM EDT Office Visit [facility] [address] [place] [address] Sanjeev Lopez, DO [address] [place] [address] [facility] Start: 05-16-2023 End: 05-16-2023 Patient encounter procedure 05/16/2023 1:45 PM EST Office Visit [facility] [address] [place] [address] Titus Cavazos MD [address] [place] [address] [facility] Start: 05-08-2023 End: 05-08-2023 Patient encounter procedure 05/08/2023 1:30 PM EST Office Visit [facility] [address] [place] [place] [address] Reny No, [employer] G[employer]NER-COMMERCIAL DESIGNER [address] [place] [address] [facility] Start: 04-14-2023 End: 04-14-2024 XR Lumbar spine Views W flexion and W extension X-ray spine lumbar ap, lateral, flexion and extension only Imaging Routine Back pain, unspecified back location, unspecified back pain laterality, unspecified chronicity Expected: 04/14/2023, Expires: 04/14/2024 [facility] Work Phone: Comment on above: Expected: 04/14/2023 , Expires: 04/14/2024 Start: 12-02-2022 Influenza vaccination Influenza Vacc ine [facility] Start: 12-01-2022 Depression Screening Depression Scre jolene [facility] Start: 11-01-2022 Influenza vaccination Flu vaccine (# 1) [facility] Start: 12-02-2021 Influenza vaccination Flu vacc ine (Season Ended) [facility] Start: 11-01-2021 Influenza vaccination Flu vaccine (# 1) [facility] Start: 2017 Diabetes screen Diabetes screen [facility] Start: 2012 Screening for malign ant neoplasm of cervix [facility] Start: 12-01-2003 Screening for malign ant neoplasm of cervix Pap smear [facility] Start: 2001 DTaP,Tdap and Td Vaccines (1 - Tdap) DTaP,Tdap and Td Vaccines (1 - Tdap) [facility] Start: 2001 DTaP/Tdap/Td vaccine (1 - Tdap) DTaP/Tdap/Td vaccine (1 - Tdap) [facility] Start: 2000 Hepatitis C screening Hepatitis C sc reen [facility] Start: 1994 Depression Screen Depression Screen [facility] Start: 12-01-1987 COVID-19 Vaccine (1) COVID-19 Vaccin e (1) [facility] Start: 12-01-1983 Varicella vaccine (1 of 2 - 2-dose childhood series) Varicella vaccine (1 of 2 - 2-dose childhood series) [facility] Start: 06-01-1983 COVID-19 Vaccine (#1) COVID-19 Vacci ne (#1) GIANA PEREZ [facility] Payers Date Payer Category Payer Unknown 2022 Unknown [id number] 2020 Unknown [id number] [id number] [id number] 1982 Unknown [id number] 2.. [id number] 1982 Unknown [id number] 2.16.84 [id number] 1982 Unknown [id number] 2.16.84 [id number] 1982 Unknown [id number] 2.16. [id number] 1982 Unknown [id number] 2.16. [id number] 1982 Unknown [id number] 2.16. [id number] 1982 Unknown [id number] 2.16.8 [id number] 1982 Unknown [id number] 2.16.8 [id number] 1982 Unknown [id number] 2.16.84 [id number] 1982 Unknown [id number] 2.16.84 [id number] 1982 Unknown [id number] 2.16.84 [id number] 1982 Unknown [id number] [id number] 1982 Unknown [id number] 2.16.8 [id number] 1959 Unknown [id number] Social History Date Type Detail Facility Start: 06-15-2015 End: 10-09-2022 Tobacco smoking status [facility] Never smoked tobacco [employer] Start: 06-15-2015 End: 10-09-2022 Tobacco use and exposure Smokeless tobacco non-user [employer] Phone: Start: 08-19-2021 End: 04-14-2023 Alcohol intake Current non-drinker of alcohol (finding) [employer] Phone: Start: 08-19-2021 End: 05-04-2023 Alcohol intake [facility] Start: 06-15-2015 History SDOH Alcohol Comment rarely [employer] Phone: Start: 1980 Sex Assigned At Not on file [employer] Phone: Start: 08-09-2021 End: 01-03-2022 Exposure to SARS-CoV-2 (event) Not sure [employer] Phone: History of tobacco use Passive smoker [facility] [address] Phone: Start: 04-14-2023 End: 05-04-2023 Sex Assigned At [facility] Adolescent depressio n screening assessment 0 [facility] Start: 05-04-2023 Alcohol intake Ex-drinker (finding) [facility] Start: 10-09-2022 Alcohol Comment Alcohol: 1 or 2 drinks on typical day/monthly or less. Caffeine: 1-2 cups/day tea [facility] Start: 1980 Sex Assigned At Female [facility] Start: 09-21-2022 Gender identity Identifies as female gender (finding) [facility] Start: 09-21-2022 Sexual orientation Heterosexual (finding) [facility] Clinical Notes 08-19-2021 to 05-04-2023 Oswaldo Dee, HARBOR ENGINEER - 05/04/2023 10:00 AM EST Note Date & Type Note Facility 05-04-2023 History of Mya t illness Narrative Chief Complaint Patient presents with Right Ring Finger - Follow-up HISTORY OF PRESENT ILLNESS: Karuna Ann is an 42 y.o. @ female. RT RF injury x ~ 10 weeks (02/2023). Pt was putting towels into the washer while it was spinning and twisted her finger, heard a snap. Applied a splint to her finger for about 2 weeks. Went to [facility] 03/09 due to having numbness in finger and unable to straighten it. Had XR at . [facility] Unable to get into hand specialist at [facility] until May 16. Continues to have soreness in finger. Not being able to use her finger is causing pain up to her shoulder. Wearing STAX splint at all times. Taking IBU. Admits numbness, has improved some. Admits swelling, also states the splint rubs. Has to tape her splint to make it tighter, if it's loose she will have pain in finger. Occas wakes at HS. States finger looks crooked. PT is RT handed Prior [place]: [facility] 03/09/23, XR, Splint, [facility], XR 03/13/23, Ice, Heat, IBU, [facility] ALLERGIES: No Known Allergies HOME MEDICATIONS: Current Outpatient Medications Medication Instructions amphetamine-dextroamphetamine (Adderall) 20 MG tablet 1 TABLET ORALLY MID DAY 30 DAYS cyclobenzaprine (Flexeril) 10 MG tablet PLEASE SEE ATTACHED FOR DETAILED DIRECTIONS fluconazole (DIFLUCAN) 100 mg, Oral, Daily nystatin (Mycostatin) 276976 UNIT/GM powder APPLY TO AFFECTED AREA TOPICALLY EVERY DAY nystatin (Mycostatin) cream Topical, 2 times daily ondansetron ODT (ZOFRAN-ODT) 4 mg, Oral, Every 6 hours Tirzepatide (Mounjaro) 7.5 MG/0.5ML solution pen-injector INJECT 0.5 ML UNDER THE SKIN 1 (ONE) TIME PER WEEK FOR 28 DAYS. Vyvanse 50 MG capsule TAKE 1 CAPSULE BY MOUTH EVERY DAY IN THE MORNING FOR 30 DAYS PHYSICAL EXAM: Right Hand Exam Tenderness Right hand tenderness location: tenderness over 4th middle phalanx and DIP. Range of Motion Wrist Extension: normal Flexion: normal Pronation: normal Supination: normal Muscle Strength Inventory Transcriber: 3/5 Other Erythema: absent Pulse: present Comments: Decreased flexion of ring finger at PIP and DIP Patient presents in finger splint Mild amount of swelling. Vitals: There is no height or weight on file to calculate BMI. IMAGING: ASSESSMENT: Mallet deformity of right ring finger Pain in finger of right hand PLAN: Patient is noted to have had to reschedule or move multiple appointments since last visit on 03/16/2023. STAX splint was removed today and patient did not have mallet finger deformity or flexion of at the DIP. She was noted to have decreased flexion of the DIP and PIP joint of the ring finger. I educated patient swelling is still common this far out from injury. I recommended that patient start gentle flexion and work with OT for hand therapy. Patient states that she is frustrated with lack of progress and would like second opinion. I educated patient that she is welcome to get second opinion and can follow up with us as needed. Questions answered in laymen terms at the bedside. The diagnosis, home exercise plan and any ongoing restrictions/ recommendations reviewed. If unable to be reached in office, I recommend evaluation at nearest Emergency Room if any symptoms worsened or new symptoms develop for requiring urgent evaluation. Oswaldo Dee [employer] G[employer]-COMMERCIAL DESIGNER documented in this encounter [facility] 04-19-2023 Evaluation note Encounter Date Diagnosis Assessment Notes Apr, Adult ADHD (attention deficit hyperactivity disorder) (ICD-10 - F90.9) [facility] Other 01-10-2024 Evaluation note* Encounter Date Diagnosis Assessment Notes Treatment Notes Treatment Clinical Notes Apr, Adult ADHD (attentio n deficit hyperactivity disorder) (ICD-10 - F90.9) [facility] Other 01-09-2024 Evaluation note* Encounter Date Diagnosis Assessment Notes Treatment Notes Treatment Clinical Notes Apr, Adult ADHD (attentio n deficit hyperactivity disorder) (ICD-10 - F90.9) [facility] Other 01-08-2024 Evaluation note* Encounter Date Diagnosis Assessment Notes Treatment Notes Treatment Clinical Notes Apr, Adult ADHD (attentio n deficit hyperactivity disorder) (ICD-10 - F90.9) [facility] Other 12-07-2023 NotePatient Education Materials Follows: Mallet Finger Mallet finger is an injury that occurs when an object hits the tip of your straightened finger or thumb. It is also known as baseball finger. The blow to your fingertip causes it to bend more than normal, which tears the cord that attaches to the tip of your finger (extensor tendon). Your extensor tendon is what straightens the end of your finger. If this tendon is damaged, you will not be able to straighten your fingertip. Sometimes, a piece of bone may be pulled away with the tendon (avulsion injury), or the tendon may tear completely. In some cases, surgery may be required to repair the damage. What are the causes? Mallet finger is caused by a hard, direct hit to the tip of your finger or thumb. This injury oftenhappens from getting hit in the finger with a hard ball, such as a baseball. What increases the risk? This injury is more likely to happen if you play a sport that uses a hard ball. What are the signs or symptoms? The main symptom of this injury is the inability to straighten the tip of your finger. You can manually straighten your fingertip with your other hand, but the finger cannot straighten on its own. Other symptoms may include: ? Pain. ? Swelling. ? Bruising. ? Blood under the fingernail. How is this diagnosed? Your health care provider may suspect mallet finger if you are not able to extend your fingertip, especially if you recently injured your hand. Your health care provider will do a physical exam. Thismay include X-rays to see if a piece of bone has been pulled away or if the finger joint has (dislocated). How is this treated? Mallet finger may be treated with: ? A splint on your fingertip to keep it straight (extended) while the tendon heals. ? Surgery to repair the tendon. This is done in severe cases. This may involve: ? Using a pin or screw to keep your finger extended and your tendon attached. ? Using a piece of tendon from another part of your body (graft) to replace a torn tendon. Follow these instructions at home: If you have a removable splint: ? Wear the splint as told by your health care provider. Remove it only as told by your health care provider. ? Check the skin around the splint every day. Tell your health care provider about any concerns. ? Loosen the splint if your fingers tingle, become numb, or turn cold and blue. ? Keep the splint clean. ? If the splint is not waterproof: ? Do not let it get wet. ? Cover it with a watertight covering when you take a bath or a shower. ? If you remove your splint to dry it or change it: ? Gently press your finger on a flat surface to keep it straight. Failing to do so may lead to a permanent injury or force you to wear the splint for a longer period of time. ? Check the skin under the splint. Tell your health care provider if you notice a blister or red and raw skin. Managing pain, stiffness, and swelling ? If directed, put ice on the injured area. To do this: ? If you have a removable splint, remove it as told by your health care provider. ? Put ice in a plastic bag. ? Place a towel between your skin and the bag. ? Leave the ice on for 20 minutes, 2?3 times a day. ? Remove the ice if your skin turns bright red. This is very important. If you cannot feel pain, heat, or cold, you have a greater risk of damage to the area. ? Move your fingers often to reduce stiffness and swelling. ? Raise (elevate)the injured area above the level of your heart while you are sitting or lying down. General instructions ? Take twqa-tce-dissffk and prescription medicines only as told by your health care provider. ? Ask your health care provider if the medicine prescribed to you requires you to avoid driving or using machinery. ? Keep all follow-up visits. This is important. Contact a health care provider if: ? You have pain or swelling that is getting worse. ? Your finger feels cold. ? You cannot extend your finger after treatment. ? You notice that the skin under the splint is red, raw, or has a blister. Get help right away if: ? Even after loosening your splint, your finger is: ? Very red and swollen. ? White or blue. ? Numb or tingling. Summary ? Mallet finger is an injury that occurs from a hard, direct hit to the tip of your finger or thumb. ? The blow to your fingertip causes it to bend more than normal, tearing the tendon that straightens the end of your finger. You cannot straighten your fingertip if this tendon is torn. ? This injury often happens from getting hit in the finger with a hard ball, such as a baseball. ? Treatment will depend on how severe the injury is. You may need to wear a splint to keep the finger straight while it heals. A more severe injury may require surgery to repair the tendon. This information is not intended to replace advice given to you by your health care p (more contentnot included)...[id number] Evaluation note * Encounter Date Diagnosis Assessment Notes Treatment Notes Treatment Clinical Notes Jan, Adult ADHD (attentio n deficit hyperactivity disorder) (ICD-10 - F90.9) [facility] Other 10-02-2023 Evaluation note* Encounter Date Diagnosis Assessment Notes Treatment Notes Treatment Clinical Notes Jan, Adult ADHD (attention deficit hyperactivity disorder) (ICD-10 - F90.9) Pt notes overall improvement on Vyvanse, but effects only are sustained for 4-6 hours. Agrees to try short acting adderall. She understands these are controlled substances and she should be careful with her rx. followup in 3 months or sooner if needed. [facility] Other 09-08-2023 Evaluation note* Encounter Date Diagnosis Assessment Notes Treatment Notes Treatment Clinical Notes Dec, Adult ADHD (attentio n deficit hyperactivity disorder) (ICD-10 - F90.9) [facility] Other 09-07-2023 Evaluation note* Encounter Date Diagnosis Assessment Notes Treatment Notes Treatment Clinical Notes Dec, Adult ADHD (attentio n deficit hyperactivity disorder) (ICD-10 - F90.9) [facility] Other 08-30-2023 Evaluation note* Encounter Date Diagnosis Assessment Notes Treatment Notes Treatment Clinical Notes Nov, Adult ADHD (attention deficit hyperactivity disorder) (ICD-10 - F90.9) ADHD GOALS: guide ADHD management with current treatment as prescribed; track progress of symptom management with daily/weekly log when possible and bring to next visit to discuss; return within agreed follow up timeframe; no barriers identified; Status: ongoing, possibly to last lifetime. Nov, Cutaneous candidiasis (ICD-10 - B37.2) Refilled diflucan. [facility] Other 07-11-2023 Hospital Discharge instructions* Discharge Instructions* RIZWAN Dietz CNP - 10/11/2022 8:08 PM EDT Please call and schedule a [facility]. Use an ice pack or bag filled with ice and apply to the injured area 3 - 4 times a day for 15 - 20 minutes each time. Use ibuprofen or Tylenol (unless prescribed medications that have Tylenol in it) for pain. You can take over the counter Ibuprofen (advil) tablets (4 every 8 hours or 3 every 6 hours or 2 every 4 hours). Use your crutches for the next several days until you are able to take 10 steps without pain. Return to the Emergency Department for worsening of pain, increase swelling to the ankle, inabilityto move your toes, any other care or concern. * Attachments The following attachments cannot be sent through Care Everywhere. * RICE: General Info (Grenadian) * Ankle Sprain (Grenadian) [facility] NotePatient Education Materials Follows: Otitis Media, Adult Otitis media occurs when there is inflammation and fluid in the middle ear with signs and symptoms of an acute infection. The middle ear is a part of the ear that contains bones for hearing as well as air that helps send sounds to the brain. When infected fluid builds up in this space, it causes pressure and can lead to an ear infection. The eustachian tube connects the middle ear to the back of the nose (nasopharynx) and normally allows air into the middle ear. If the eustachian tube becomes blocked, fluid can build up and become infected. What are the causes? This condition is caused by a blockage in the eustachian tube. This can be caused by mucus or by swelling of the tube. Problems that can cause a blockage include: ? A cold or other upper respiratory infection. ? Allergies. ? An irritant, such as tobacco smoke. ? Enlarged adenoids. The adenoids are areas of soft tissue located high in the back of the throat, behind the nose and the roof of the mouth. They are part of the body's defense system (immune system). ? A mass in the nasopharynx. ? Damage to the ear caused by pressure changes (barotrauma). What increases the risk? You are more likely to develop this condition if you: ? Smoke or are exposed to tobacco smoke. ? Have an opening in the roof of your mouth (cleft palate). ? Have gastroesophageal reflux. ? Have an immune system disorder. What are the signs or symptoms? Symptoms of this condition include: ? Ear pain. ? Fever. ? Decreased hearing. ? Tiredness (lethargy). ? Fluid leaking from the ear, if the eardrum is ruptured or has burst. ? Ringing in the ear. How is this diagnosed? This condition is diagnosed with a physical exam. During the exam, your health care provider will use an instrument called an otoscope to look in your ear and check for redness, swelling, and fluid. He or she will also ask about your symptoms. Your health care provider may also order tests, such as: ? A pneumatic otoscopy. This is a test to check the movement of the eardrum. It is done by squeezing a small amount of air into the ear. ? A tympanogram. This is a test that shows how well the eardrum moves in response to air pressure in the ear canal. It provides a graph for your health care provider to review. How is this treated? This condition can go away on its own within 3?5 days. But if the condition is caused by a bacterial infection and does not go away on its own, or if it keeps coming back, your health care provider may: ? Prescribe antibiotic medicine to treat the infection. ? Prescribe or recommend medicines to control pain. Follow these instructions at home: ? Take lezc-ihu-aicowpq and prescription medicines only as told by your health care provider. ? If you were prescribed an antibiotic medicine, take it as told by your health care provider. Do not stop taking the antibiotic even if you start to feel better. ? Keep all follow-up visits. This is important. Contact a health care provider if: ? You have bleeding from your nose. ? There is a lump on your neck. ? You are not feeling better in 5 days. ? You feel worse instead of better. Get help right away if: ? You have severe pain that is not controlled with medicine. ? You have swelling, redness, or pain around your ear. ? You have stiffness in your neck. ? A part of your face is not moving (paralyzed). ? The bone behind your ear (mastoid bone) is tender when you touch it. ? You develop a severe headache. Summary ? Otitis media is redness, soreness, and swelling of the middle ear, usually resulting in pain and decreased hearing. ? This condition can go away on its own within 3?5 days. ? If the problem does not go away in 3?5 days, your health care provider may give you medicines to treat the infection. ? If you were prescribed an antibiotic medicine, take it as told by your health care provider. ? Follow all instructions that were given to you by your health care provider. This information is not intended to replace advice given to you by your health care provider. Make sure you discuss any questions you have with your health care provider. Document Revised: 06/28/2021 Document Reviewed: 06/28/2021 [employer] Patient Education ? 2021 [id number] Hospital Discharge instructions* Instructions* Radha Sanders MD - 08/19/2021 May use ice or heat, whichever feels better. May use [place] for pain. Prednisone as directed. Follow-up with the orthopedic surgeon as soon as possible. Return for weakness, numbness, bowel or bladderproblems, or if worse in any way. PLEASE RETURN TO THE EMERGENCY DEPARTMENT IMMEDIATELY if your symptoms worsen in anyway or in 1-2 days if not improved for re-evaluation. You should immediately return to the ER for symptoms such as worsening pain, abdominal pain, bloody stools, numbness or weakness to the arms or legs, difficulty with urination or defecation, difficulty with ambulation, fever, coolness or color change to the extremity, chest pain, shortness of breath, a feeling that you are going to pass out, light headed, dizziness. Take your medication as indicated and prescribed. If you are given an antibiotic then, make sure you get the prescription filled and take the antibiotics until finished. Please understand that at this time there is no evidence for a more serious underlying process, butthat early in the process of an illness or injury, an emergency department workup can be falsely reassuring. You should contact your family doctor within the next 48 hours for a follow up appointment THANK YOU!!! From [facility] and [facility] On behalf of the Emergency Department staff at [facility], I would like to thank you for giving us the opportunity to address your health care needs and concerns. We hope that during your visit, our service was delivered in a professional and caring manner. Please keep [facility] in mind as we walk with you down the path to your own personal wellness. Please expect an automated text message or email from us so we can ask a few questions about your health and progress. Based on your answers, a clinician may call you back to offer help and instructions. Please understand that early in the process of an illness or injury, an emergency department workupcan be falsely reassuring. If you notice any worsening, changing or persistent symptoms please callyour family doctor or return to the ER immediately. Tell us how we did during your visit at [email or web address] and let us know about your experience * Attachments The following attachments cannot be sent through Care Everywhere. * Herniated Disc (Grenadian) documented in this [facility] Work Phone: evaluation note* Diagnosis Herniated lumbar intervertebral disc- Primary Displacement of lumbar intervertebral disc without myelopathy [facility]* Diagnosis Gastroenteritis- Primary Other and unspecified noninfectious gastroenteritis and colitis documented in this encounter [facility] [employer] Phone: evalzpuzjy note* Diagnosis Sprain of right ankle, unspecified ligament, initial encounter- Primary documented in this encounter [facility] PhotoSpotLandEvaluation note* Diagnosis Back pain, unspecified back location, unspecified back pain laterality, unspecified chronicity- Primary [facility] Trell[employer] Other Evaluation note* Diagnosis 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 Pain in finger of right hand Pain in soft tissues of limb [facility] N[facility]ative - Reported* Type Description Date Medical History PCOS/insulin resistant Medical History PCOS (polycystic ovarian syndrom e) Medical History Frequent headaches Medical History Gestational diabetes Medical History Prediabetes Surgical History cholecystectomy 2004 Surgical History appendectomy 2006 Surgical History Hospitalization History see surgical hx Contraqer Other Hospital Discharge instructions* Attachments The following attachments cannot be sent through Care Everywhere. 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 Thinks its from bad vegetables Emesis Diarrhea Reason Comments Ankle Pain Rolled right ankle o n a tree branch Reason Comments Follow-up Ordered Prescriptions (unrec ognized section and content) Prescription Sig Dispensed Refills Start Date End Da te predniSONE (DELTASONE) 10 MG tablet Take 4 tablets by mouth once daily for 5 days 20 tablet 0 08/19/2021 08/29/2021 HYDROcodone-acetaminophen (NORCO) 5-325 MG per tabletIndications:Herniat ed lumbar intervertebral disc Take 1 tablet by mouth every 6 hours as needed for Pain for up to 3 days. Intended supply: 3 days. Take lowest dose possible to manage pain 12 tablet 0 08/19/2021 08/22/2021 Prescription Sig Dispensed Refills Start Date End Da te ondansetron (ZOFRAN-ODT) 4 MG disintegrating tablet Take 1 tablet by mouth 3 times daily as needed for Nausea or Vomiting 21 tablet 0 01/03/2022 Scheduled Active and Recently Administ ered Medications (unrecognized section and content) Medication Order 08/17/2021 08/18/2021 08/19/2021 morphine (PF) injection 10 mg (COMPLETED) 10 mg, IntraMUSCular, ONCE, 1 dose, On Natacha 08/19/21 at 1700 1655 (Given - Provid er: Luiza Gerard RN - Comment: Medication would not scan at bedside. Verified with [facility] prior to administration.) Scheduled Medication Order 01/01/2022 01/02/2022 01/03/2022 0.9 % sodium chloride bolus (COMPLETED) 1,000 mL (8.32 mL/kg), IntraVENous, at 495.9 mL/hr, Administer over 121 Minutes, ONCE, On 01/03/22 at 1215, For 1 dose 1215 (New Bag - Prov ider: Flor Garcia RN)1359 (Stopped - Provider: Flor Garcia RN) 0.9 % sodium chloride bolus 80 mL (0.666 mL/kg), IntraVENous, at 160 mL/hr, Administer over 0.5 Hours, ONCE, On Mon01/03/22 at 1245, For 1 dose 1241 (Bolus from Bag - Provider: Jo Robles) ondansetron (ZOFRAN) injection 4 mg (COMPLETED) 4 mg, IntraVENous, ONCE, 1 dose, On 01/03/22 at 1215 1215 (Given - Provid er: Flor Garcia RN) PRN Medication Order 01/01/2022 01/02/2022 01/03/2022 iopamidol (ISOVUE-370) 76 % injection 75 mL (COMPLETED) 75 mL, IntraVENous, IMG ONCE PRN, 1 dose, Starting on Mon01/03/22 at 1233, Until Mon01/03/22 at 1240, Other 1240 (Given - Provid er: Jo Robles) sodium chloride flush 0.9 % injection 10 mL 10 mL, IntraVENous, PRN, Starting on Mon01/03/22 at 1233, Until Discontinued, Line Care 1241 (Given - Provid er: Jo Robles) Scheduled Medication Order 10/09/2022 10/10/2022 10/11/2022 HYDROcodone-acetaminophen (NORCO) 5-325 MG per tablet 1 tablet (COMPLETED) 1 tablet, Oral, ONCE, 1 dose, On Mon10/11/22 at 1999, Maximum dose of acetaminophen is 4000 mg from all sources in 24 hours. 2052 (Given - Provid er: Becky Toussaint RN) ketorolac (TORADOL) injection 30 mg (COMPLETED) 30 mg, IntraMUSCular, ONCE, 1 dose, On Mon10/11/22 at 1999, Do not administer for more than 5 days. 2051 (Given - Provid er: Becky Toussaint RN) Care Teams (unrecognized sec tion and content) Balance And Hairspring Assembler Relationship Specialty Start Date End Date Johnathon Winter MD PCP - General Family Medicine 03/08/16 [employer] And Hairspring Assembler Relationship Specialty Start Date End Date Johnathon Winter MD PCP - General Family Medicine 03/08/16 Balance And Hairspring Assembler Relationship Specialty Start Date End Date Johnathon Winter MD PCP - General Family Medicine 03/08/16 Balance And Hairspring Assembler Relationship Specialty Start Date End Date Johnathon Winter MD [address] [place] [address] [phone] PCP - General 03/13/23 Balance And Hairspring Assembler Relationship Specialty Start Date End Date Johnathon Winter MD [address] [place] [phone] PCP - General Family Medicine 12/12/22 INFORMATION SOURCE (unrecogn ized section and content) DATE CREATED AUTHOR 06/08/2022 [facility] DATE CREATED AUTHOR AUTHOR'S ORGANIZ ATION 07/17/2022 [facility] DATE CREATED AUTHOR AUTHOR'S ORGANIZ ATION 10/12/2022 [facility] DATE CREATED AUTHOR AUTHOR'S ORGANIZ ATION 03/11/2023 [facility] DATE CREATED AUTHOR AUTHOR'S ORGANIZ ATION 04/16/2023 [facility] DATE CREATED AUTHOR AUTHOR'S ORGANIZ ATION 05/05/2023 [facility] EPIC DATE CREATED AUTHOR AUTHOR'S ORGANIZ ATION 05/07/2023 [facility] FOR RECORDS PERTAINING TO PATIENTS WHO ARE OR HAVE BEEN ENROLLED IN A CHEMICAL DEPENDENCY/SUBSTANCEABUSE PROGRAM, SOME INFORMATION MAY BE OMITTED. This clinical summary was aggregated from multiple sources. Caution should be exercised in using it in the provision of clinical care. This summary normalizes information from multiple sources, and as a consequence, information in this document may materially change the coding, format and clinical context of patient data. In addition, data may be omitted in some cases. CLINICAL DECISIONS SHOULD BE BASED ON THE PRIMARY CLINICAL RECORDS. [employer] [facility]. provides no warranty or guarantee of the accuracy or completeness of information in this document.
--- NOTE | 2023-05-10 07:59 | MM_ITS ---
Patient Name: CHAR ANN MR#: [id number] : 1980 Exam Date: 05/10/2023 Ordering Doctor: DR Sanjeev Lopez . RADIOLOGY REPORT PROCEDURE: MM DIAGNOSTIC MAMMO UNILAT LT, 05/10/2023, 08:01 US BREAST LT LIMITED, 05/10/2023, 08:16 COMPARISON: MG MAMM DIAGNOSTIC 3D RAMA CAD, 04/29/2022. MM TOMOSYNTHESIS SCREENING BI, 04/28/2023. INDICATIONS: Abnormality Of Left Breast On Screening Mammogram Calculator Name NCI Breast Cancer Risk Assessment Tool 5 Year Breast Cancer Risk 0.50% Lifetime Breast Cancer Risk 9.00% Personal Breast Cancer No Personal Ovarian Cancer No Treatments None Family Cancers Grandmother-maternal with stomach cancer at age 65. LOCATION: [facility] BREAST COMPOSITION: Scattered areas fibroglandular density. FINDINGS: DIAGNOSTIC CATEGORY 4--SUSPICIOUS FOR MALIGNANCY. FINDING DOES NOT EXHIBIT CLASSIC FINDINGS OF BREAST CANCER: Spot compression images demonstrate a persistent density lower inner quadrant, mid breast measuring 1.1 x 0.7 cm. This lesion is not visualized by ultrasound. In light of the substantial change from the prior exam stereotactic breast biopsy was recommended to the patient RECOMMENDATIONS: STEREOTACTIC BREAST BIOPSY: LEFT BREAST PLEASE NOTE: A NORMAL MAMMOGRAM DOES NOT EXCLUDE THE POSSIBILITY OF BREAST CANCER. A CLINICALLY SUSPICIOUS PALPABLE LUMP SHOULD BE BIOPSIED. Dictated by: Mj Silva MD on 05/10/2023 at 08:33 Approved by: Mj Silva MD on 05/10/2023 at 08:42
[2023-05-10 09:00] LABS: Free T3 2.67 pg/mL (2.18-3.98); Glucose 81 mg/dL (74-106); Thyroid Stimulating Hormone 1.735 uIU/mL (0.358-3.740)
[2023-05-10 09:33] LABS: Estimated Average Glucose 94 mg/dL; Glycohemoglobin A1C 4.9 % (4.5-6.2)
[2023-05-10 10:18] LABS: Free T4 1.29 ng/dL (0.76-1.46)
[2023-05-11 06:09] LABS: Sex Horm Binding Glob, Serum 49.1 nmol/L (24.6-122.0)
[2023-05-11 08:13] LABS: Estradiol 98.9 pg/mL (.); Progesterone 0.1 ng/mL (.)
[2023-05-11 12:10] LABS: C-Peptide, Serum 2.8 ng/mL (1.1-4.4)
[2023-05-11 17:08] LABS: Thyroglobulin Antibody <1.0 IU/mL (0.0-0.9); Thyroid Peroxidase (TPO) Ab 11 IU/mL (0-34)
[2023-05-14 00:10] LABS: Serotonin, Serum 105 ng/mL (31-207)
[2023-05-16 18:08] LABS: Cortisol, Free Dialysis, LCMS 0.787 ug/dL (.)
[2023-05-18 17:08] LABS: Estrone, Serum 65 pg/mL (27-231)
[2023-05-21 04:09] LABS: Free Testosterone(Direct) 0.6 pg/mL (0.0-4.2); Testosterone 22 ng/dL (8-60)
== END 2023-05-10 07:33 | disposition home or self-care (01) ==
LOC: MAMMO 07:32
PROVIDERS: PCP Family Medicine; Visit Provider Obstetrics & Gynecology
DX: R68.82 Decreased libido (principal); R92.8 Other abnormal and inconclusive findings on diagnostic imaging of breast; Z80.0 Family history of malignant neoplasm of digestive organs
CPT/HCPCS: 36415; 76642; 77065; 82306; 82530; 82627; 82670; 82679; 82728; 82947; 83036; 83525; 84144; 84260; 84270; 84402; 84403; 84436; 84439; 84443; 84481; 84482; 84681; 86376; 86800

== ENCOUNTER 2023-05-23 12:12 | Day surgery (SDC) | payer BC, SELFPAY ==
--- NOTE | 2023-05-23 12:15 | MM_ITS ---
Patient Name: CHAR ANN MR#: [id number] : 1980 Exam Date: 05/23/2023 Ordering Doctor: DR Sanjeev Lopez . This report includes an Addendum and supersedes previous reports for this exam. RADIOLOGY REPORT PROCEDURE: MM STEREOTACTIC LOC LT COMPARISON: MM DIAGNOSTIC MAMMO UNILAT LT, 05/10/2023. MM TOMOSYNTHESIS SCREENING BI, 04/28/2023. MG MAMM DIAGNOSTIC 3D RAMA CAD, 04/29/2022. INDICATIONS: density DESCRIPTION: Following informed consent, digital stereotactic mammographic views were obtained to localize the lesion. Multiple vacuum-assisted core biopsies were obtained. Specimen images were obtained to confirm proper sampling. The location of the biopsy was then marked as indicated below. FINDINGS: RECOMMENDATIONS: SPECIMEN #, LOCATION: 5 core samples, lower-inner quadrant left breast, small mild asymmetric opacity. SPECIMEN IMAGE: None obtained (no calcifications). BIOPSY NEEDLE: 10 gauge Revolve(r) vacuum core biopsy needle. MARKER(S) PLACED: A single metallic marker was placed in the appropriate targeted location. MEDICATION: Buffered 1% lidocaine superficial;1% lidocaine with epinephrine deep. COMPLICATIONS: None. PATHOLOGY / LAB: Pending. CONCLUSION: 1. Technically successful biopsy of the breast lesion. 2. Pathology results are pending. An addendum will be added when pathology results are final. Dictated by: Tee Peterson M.D. on 05/23/2023 at 14:34 Approved by: Tee Peterson M.D. on 05/23/2023 at 14:37 ADDENDUM: Final pathologic diagnosis: Benign breast tissue with focal dense stromal fibrosis. Dictated by: Tee Peterson M.D. on 06/09/2023 at 09:00 Approved by: Tee Peterson M.D. on 06/09/2023 at 09:01
--- NOTE | 2023-05-23 12:16 | MM_ITS ---
Patient Name: CHAR ANN MR#: [id number] : 1980 Exam Date: 05/23/2023 Ordering Doctor: DR Sanjeev Lopez . This report includes an Addendum and supersedes previous reports for this exam. RADIOLOGY REPORT PROCEDURE: MM POST BIOPSY LT COMPARISON: MM STEREOTACTIC LOC LT, 05/23/2023. MM DIAGNOSTIC MAMMO UNILAT LT, 05/10/2023. MM TOMOSYNTHESIS SCREENING BI, 04/28/2023. MG MAMM DIAGNOSTIC 3D RAMA CAD, 04/29/2022. INDICATIONS: density BREAST COMPOSITION: Scattered areas fibroglandular density. FINDINGS: BIOPSY MARKER: A metallic marker has been placed in the targeted location within the lower-inner quadrant of the left breast. BREAST FINDINGS: Expected post biopsy findings. RECOMMENDATIONS: Dictated by: Tee Peterson M.D. on 05/23/2023 at 14:37 Approved by: Tee Peterson M.D. on 05/23/2023 at 14:38 ADDENDUM: FINDINGS: DIAGNOSTIC CATEGORY 3--PROBABLY BENIGN FINDING. THE FOLLOWING FINDING(S) HAS A HIGH PROBABILITY OF A BENIGN ETIOLOGY: RECOMMENDATIONS: SHORT TERM FOLLOW-UP DIAGNOSTIC MAMMOGRAM LEFT BREAST IN 6 MONTHS. Dictated by: Tee Peterson M.D. on 06/09/2023 at 09:01 Approved by: Tee Peterson M.D. on 06/09/2023 at 09:01
[2023-05-23 12:25] VITALS: BP 160/123; PULSE 70; O2SAT 100
--- OUTSIDE RECORDS SUMMARY | 2023-05-23 12:35 | XMS_ITS | CCD ---
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 Winter Other [facility] Other 10-11-2022 18:45-0400 Body height 165.1 cm Roxie Garcia MD Work Phone: [employer] 10-11-2022 18:45-0400 Body mass index (BMI) [Ratio] 43.93 kg/m2 Roxie Garcia MD Work Phone: [facility] [employer] 10-11-2022 18:45-0400 Body temperature 99 [degF] Roxie Garcia MD Work Phone: [facility] [employer] 10-11-2022 18:45-0400 Body weight 119.75 kg Roxie Garcia MD Work Phone: [facility] [employer] 10-11-2022 18:45-0400 Diastolic blood pressure 108 mm[Hg] Roxie Garcia MD Work Phone: [facility] [employer] 10-11-2022 18:45-0400 Heart rate 87 /min Roxie Garcia MD Work Phone: [facility] [employer] 10-11-2022 18:45-0400 Respiratory rate 16 /min Roxie Garcia MD Work Phone: [facility] [employer] 10-11-2022 18:45-0400 SaO2% (BldA) [Mass fraction] 98 % Roxie Garcia MD Work Phone: [facility] [employer] 10-11-2022 18:45-0400 Systolic blood pressure 160 mm[Hg] Roxie Garcia MD Work Phone: [employer] 01-03-2022 13:54-0400 Diastolic blood pressure 95 mm[Hg] Teo Thomas DO [employer] 01-03-2022 13:54-0400 Heart rate 61 /min Teo Galeanofman DO [employer] 01-03-2022 13:54-0400 SaO2% (BldA) [Mass fraction] 100 % Teo Thomas DO [employer] 01-03-2022 13:54-0400 Systolic blood pressure 142 mm[Hg] Teo Thomas DO [employer] 01-03-2022 11:46-0400 Body height 165.1 cm Teo Morean DO [employer] 01-03-2022 11:46-0400 Body mass index (BMI) [Ratio] 44.1 kg/m2 [facility] [employer] 01-03-2022 11:46-0400 Body temperature 97.7 [degF] [facility] [employer] 01-03-2022 11:46-0400 Body weight 120.2 kg Teo Thomas [facility] [employer] 01-03-2022 11:46-0400 Respiratory rate 16 /min Teo Froylanfman [facility] 08-19-2021 18:03-0400 Diastolic blood pressure 98 mm[Hg] Radha Sanders MD Work Phone: [employer] 08-19-2021 18:03-0400 Heart rate 92 /min Radha Sanders MD Work Phone: [employer] 08-19-2021 18:03-0400 Respiratory rate 16 /min Radha Sanders MD Work Phone: [employer] 08-19-2021 18:03-0400 SaO2% (BldA) [Mass fraction] 96 % Radha Sanders MD Work Phone: [employer] 08-19-2021 18:03-0400 Systolic blood pressure 145 mm[Hg] Radha Sanders MD Work Phone: [employer] 08-19-2021 16:28-0400 Body height 165.1 cm Radha Sanders MD Work Phone: [employer] 08-19-2021 16:28-0400 Body mass index (BMI) [Ratio] 45.76 kg/m2 Radha Sanders MD Work Phone: [employer] 08-19-2021 16:28-0400 Body temperature 98.6 [degF] Radha Sanders MD Work Phone: [employer] 08-19-2021 16:28-0400 Body weight 124.74 kg Radha Sanders MD Work Phone: [employer] Encounters Encounter Date Encounter Type Care Provider Facility Start: 05-19-2023 End: 05-20-2023 ambulatory RENYSLOANE NO [facility] Start: 05-16-2023 End: 05-16-2023 ambulatory ROHIT SMITH V [facility] Start: 05-16-2023 End: 05-16-2023 Office outpatient new 30 minutes Rohit Smith MD [facility] Comment on above: 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); Finger injury, right, initial encounter Start: 05-15-2023 Orders Only Reny Read yen INFORMATION TECHNOLOGY AUDITOR-FURNITURE FINISHER HELPER Work Phone: [facility] Comment on above: Herniated lumbar int ervertebral disc (Primary Dx) Start: 05-10-2023 End: 05-10-2023 ambulatory Johnathon Winter Other [facility] Other Start: 05-10-2023 Encounter by kriss Winter [facility] Start: 05-04-2023 End: 05-05-2023 ambulatory OSWALDO DEE Not Available Start: 05-04-2023 End: 05-04-2023 Office outpatient visit 10 minutes Oswaldo Dee STAFF RESEARCH SCIENTIST Work Phone: [facility] Comment on above: 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); Pain in finger of right hand Start: 05-01-2023 End: 05-01-2023 ambulatory SANJEEV LOPEZ Not Available Start: 04-19-2023 End: 04-19-2023 ambulatory Scottie Lyn Other [facility] Other Start: 04-19-2023 Telephone encounter Scottie VEGA G [facility] Start: 04-14-2023 End: 04-14-2023 Orders Only Serina GARCIAA [facility] Comment on above: Back pain, unspecifi ed back location, unspecified back pain laterality, unspecified chronicity (Primary Dx) Start: 04-12-2023 End: 04-12-2023 ambulatory Johnathon Winter Other [facility] Other Start: 04-12-2023 Telephone encounter Johnathon Winter [facility] Start: 04-11-2023 End: 04-11-2023 ambulatory Johnathon Winter [facility] Other Start: 04-11-2023 Telephone encounter Johnathon Winter [facility] Start: 04-10-2023 End: 04-10-2023 ambulatory Johnathon Laura Other [facility] Other Start: 04-10-2023 Encounter by krsis burgos Johnathon Laura [facility] Start: 03-16-2023 End: 03-16-2023 ambulatory OSWALDO EDE Not Available Start: 03-09-2023 End: 03-09-2023 ambulatory Sanchez DICKEY Facility:[facility] Start: 01-30-2023 End: 01-30-2023 ambulatory Johnathon Laura Other [facility] Other Start: 01-30-2023 Telephone encounter Johnathon Winter [facility] Start: 01-02-2023 End: 01-02-2023 ambulatory Johnathon Winter [facility] Other Start: 01-02-2023 Office outpatient vi sit 15 minutes Johnathon Laura [facility] Start: 12-09-2022 End: 12-09-2022 ambulatory Johnathon Laura [facility] Other Start: 12-09-2022 Telephone encounter Johnathon Winter [facility] Start: 12-08-2022 End: 12-08-2022 ambulatory Johnathon Winter Other [facility] Other Start: 12-08-2022 Telephone encounter Johnathon Winter [facility] Start: 2022 End: 2022 ambulatory Johnathon Laura Other [facility] Other Start: 2022 Office outpatient ne w 30 minutes Johnathon Winter [facility] Start: 10-11-2022 End: 10-11-2022 Emergency department patient visit JOHNATHON WINTER [facility] Start: 10-11-2022 End: 10-11-2022 Emergency department patient visit Roxie Garcia MD Work Phone: [facility] Comment on above: Sprain of right ankl e, unspecified ligament, initial encounter (Primary Dx) Start: 07-11-2022 End: 07-11-[address] SANJEEV LOPEZ . Facility:[facility] Start: 06-06-2022 End: 06-07-2022 ambulatory Anand Farrar MD Facility:[facility] Start: 05-10-2022 ambulatory Anand Sweeney MD Facility:[facility] Start: 04-29-2022 End: 04-30-[address] SANJEEV LOPEZ . Facility: Start: 04-08-2022 End: 04-08-2022 ambulatory Mary Díaz Facility:[facility] Start: 02-16-2022 End: 02-16-2022 Emergency department patient visit JOHNATHON WINTER [facility] Start: 01-03-2022 End: 01-03-2022 Emergency department patient visit JOHNATHON WINTER [facility] Start: 01-03-2022 End: 01-03-2022 Emergency department patient visit Teo Thomas DO [facility] ED Comment on above: Gastroenteritis (Neetu emil Dx) Start: 08-19-2021 End: 08-19-2021 Emergency department patient visit Radha Sanders MD Work Phone: [facility] Comment on above: Herniated lumbar int ervertebral disc (Primary Dx) Procedures Date Procedure Procedure Detail Performing Clinician Start: 10-11-2022 Radex ankle complete minimum 3 views Bailee Lew INFORMATION TECHNOLOGY AUDITOR - FURNITURE FINISHER HELPER Work Phone: Start: 01-03-2022 Urinalysis microscop ic only Zachariah Foster INFORMATION TECHNOLOGY AUDITOR - STAFF RESEARCH SCIENTIST Work Phone: Start: 01-03-2022 Urnls dip stick/tabl et rgnt auto w/o microscopy Zachariah Foster INFORMATION TECHNOLOGY AUDITOR - STAFF RESEARCH SCIENTIST Work Phone: Start: 01-03-2022 Ct abdomen & pelvis w/contrast material Zachariah Foster INFORMATION TECHNOLOGY AUDITOR - STAFF RESEARCH SCIENTIST Work Phone: Start: 01-03-2022 Assay of lipase Zachariah Foster INFORMATION TECHNOLOGY AUDITOR - STAFF RESEARCH SCIENTIST Work Phone: Start: 12-01-2021 Adult depression scr eening assessment Serina Rodriguez RMA Start: 08-19-2021 Ct lumbar spine w/o contrast material Radha Sanders MD Work Phone: Plan of Treatment Date Care Activity Detail Author Start: 05-16-2024 Adult BMI Screening Adult BMI Screen ing [facility] Start: 05-16-2024 Tobacco Screening Tobacco Screening [facility] Start: 05-08-2024 Adult BMI Screening Adult BMI Screen ing [facility] Start: 05-08-2024 Tobacco Screening Tobacco Screening [facility] Start: 04-14-2024 Adult BMI Screening Adult BMI Screen ing [facility] Start: 04-14-2024 Tobacco Screening Tobacco Screening [facility] Start: 07-17-2023 End: 07-17-2023 Patient encounter procedure 07/17/2023 10:00 AM EDT Office Visit [facility] [address] [id number] Sanjeev Lopez, [address] [place] [address] [facility] Start: 06-12-2023 End: 06-12-2023 Patient encounter procedure 06/12/2023 10:05 AM EDT Office Visit [facility] [address] [place] [id number] Rohit Smith MD [address] [place] [address] [facility] Start: 05-19-2023 End: 05-19-2023 Patient encounter procedure 05/19/2023 10:15 AM EST Appointment [facility] [address] [place] [id number] [facility] Start: 05-16-2023 End: 05-16-2023 Patient encounter procedure 05/16/2023 1:45 PM EST Office Visit [facility] [address] [facility] [address] [place] [address] Rohit Smith MD [address] [place] [address] [facility] Start: 05-08-2023 End: 05-08-2023 Patient encounter procedure 05/08/2023 1:30 PM EST Office Visit [facility] [address] [place] [id number] Reny No, INFORMATION TECHNOLOGY AUDITOR-FURNITURE FINISHER HELPER [address] [facility] [address] [place] [address] [facility] Start: 04-14-2023 End: 04-14-2024 XR Lumbar spine Views W flexion and W extension X-ray spine lumbar ap, lateral, flexion and extension only Imaging Routine Back pain, unspecified back location, unspecified back pain laterality, unspecified chronicity Expected: 04/14/2023, Expires: 04/14/2024 [facility] Work Phone: Comment on above: Expected: 04/14/2023 , Expires: 04/14/2024 Start: 12-02-2022 Influenza vaccination Influenza Vacc ine [facility] Start: 12-01-2022 Depression Screening Depression Scre ening [facility] Start: 11-01-2022 Influenza vaccination Flu vaccine (# 1) [facility] Start: 09-03-2022 Adult BMI Follow Up Plan Adult BMI Follow Up Plan [facility] Start: 12-02-2021 Influenza vaccination Flu vacc ine (Season Ended) [facility] Start: 11-01-2021 Influenza vaccination Flu vaccine (# 1) [facility] Start: 2017 Diabetes screen Diabetes screen [facility] Start: 2012 Screening for malign ant neoplasm of cervix [facility] Start: 12-01-2003 Screening for malign ant neoplasm of cervix Pap smear [facility] Start: 2001 DTaP,Tdap and Td Vaccines (1 - Tdap) DTaP,Tdap and Td Vaccines (1 - Tdap) [facility] Start: 2001 DTaP/Tdap/Td vaccine (1 - Tdap) DTaP/Tdap/Td vaccine (1 - Tdap) [facility] Start: 2000 Hepatitis C screening Hepatitis C sc reen [facility] Start: 1994 Depression Screen Depression Screen [facility] Start: 12-01-1987 COVID-19 Vaccine (1) COVID-19 Vaccin e (1) [facility] Start: 12-01-1983 Varicella vaccine (1 of 2 - 2-dose childhood series) Varicella vaccine (1 of 2 - 2-dose childhood series) [facility] Start: 06-01-1983 COVID-19 Vaccine (#1) COVID-19 Vacci ne (#1) [facility] Payers Date Payer Category Payer Unknown 2022 Unknown [id number] 2020 Unknown [id number] 1.2.8 [id number] 1982 Unknown [id number] 2.16. [id number] 1982 Unknown [id number] 2.16.84 [id number] 1982 Unknown [id number] 2.16.84 [id number] 1982 Unknown [id number] 2.16. [id number] 1982 Unknown [id number] 2.16. [id number] 1982 Unknown [id number] 2.16. [id number] 1982 Unknown [id number] 2.16.8 [id number] 1982 Unknown [id number] 2.16.8 [id number] 1982 Unknown [id number] 2.16.84 [id number] 1982 Unknown [id number] 2.16.84 [id number] 1982 Unknown [id number] 2.16.840 .[id number] 1982 Unknown [id number] 2.16.8 [id number] 1982 Unknown [id number] 2.16.84 [id number] 1982 Unknown [id number] 2.16.8 [id number] 1982 Unknown [id number] 2.16.8 [id number] 1959 Unknown [id number] Social History Date Type Detail Facility Start: 06-15-2015 End: 03-31-2022 Tobacco smoking status [facility] Never smoked tobacco [employer] Start: 06-15-2015 End: 03-31-2022 Tobacco use and exposure Smokeless tobacco non-user [employer] Phone: Start: 08-19-2021 End: 05-16-2023 Alcohol intake Current non-drinker of alcohol (finding) [employer] Phone: Start: 05-14-2020 End: 08-19-2021 Alcohol intake [facility] Start: 06-15-2015 History SDOH Alcohol Comment rarely [employer] Phone: Start: 1980 Sex Assigned At Not on file [employer] Phone: Start: 08-09-2021 End: 01-03-2022 Exposure to SARS-CoV-2 (event) Not sure [employer] Phone: History of tobacco use Passive smoker [facility] [employer] Phone: Start: 05-14-2020 End: 04-14-2023 Sex Assigned At [facility] Adolescent depressio n screening assessment 0 [facility] Start: 05-04-2023 Alcohol intake Ex-drinker (finding) [facility] Start: 10-09-2022 Alcohol Comment Alcohol: 1 or 2 drinks on typical day/monthly or less. Caffeine: 1-2 cups/day tea [facility] Start: 1980 Sex Assigned At Female [facility] Start: 09-21-2022 Gender identity Identifies as female gender (finding) [facility] Start: 09-21-2022 Sexual orientation Heterosexual (finding) [facility] Clinical Notes 08-19-2021 to 05-16-2023 Rohit Metzger MD - 05/16/2023 1:45 PM EST Note Date & Type Note Facility 05-16-2023 History of Present illness Narrative [facility] Chief Complaint: Chief Complaint Patient presents with Right Hand - Pain New patient mallet finger on the right hand ring finger. Ongoing since injury 02/13/2023, states that her finger got caught on a towel that got caught in the washer and it twisted her finger up. States that she is still in a significant amount of pain. XR 03/13/2023 HPI Karuna Dumont is a 42 y.o. female presents office today as a new patient for evaluation of her right ring finger. She states that on February 13, 2023, she was putting towels in her washer when I tell got caught around her right ring finger causing to twist and she heard a snap. She initially followed up with [facility] and was diagnosed with right ring finger mallet finger. She has been splinted in extension for the past 10 weeks. She states that her finger is now straight however she is unable to bend the finger is still having significant pain. She denies any numbness or tingling. She denies any previous therapy. Examination: right upper extremity exam: Upon examination of the right hand, skin is dry and intact without signs of erythema or ecchymosis. There is mild swelling noted over the right ring finger D IP joint. Her finger does rest in full extension. He is unable to actively flex the finger at the DIP joint. She does have pain to palpation over the DIP joint. There is no laxity noted with collateral stress testing. She has present sensation of light touch and brisk capillary refill. External notes reviewed: I reviewed notes from [facility] orthopaedics. Review of test/study reports: I reviewed an x-ray obtained of the right ring finger. There were no acute osseous abnormality such as fracture dislocation. My personal interpretation of tests: I personally viewed and interpreted X-rays from [facility] as above. Xrays done in office today: None. Assessment: 1. Mallet deformity of right ring finger - [facility] - [place], [place] 2. Finger injury, right, initial encounter - [facility] - [place], [place] Plan: I discussed treatment options with the patient which included a splint weaning protocol . After discussion of these options, including risks and benefits of each we are going to proceed with splint weaning protocol . This was given to her today. This did include decreasing her time wearing splint by 4 hours per for 7 days and then by 8 hours for 7 days and then by 12 hours for 7 days and so on starting on . We did also provide her with Alumafoam splints today. I will follow-up with her in 4 weeks for re-evaluation. At that time, we will plan to get her an order for occupational therapy to begin working on range of motion. All questions were answered. I, ROHIT SMITH MD, personally performed the face to face evaluation on this patient. I discussed with the patient and confirmed the accuracy and completeness of the aforementioned history, and I personally performed the clinical examination of the patient. She has a stiff D IP joint of the right ring finger with mild sensitivity of the dorsal skin. She has no active or passive flexion of the D IP joint today secondary to pain and slight stiffness . I have established and discussed the course of treatment with the patient and Vibha Sutton PA-C. My medical decision making and treatment plan are as follows: I recommended a weaning protocol for the splint as well as beginning a home exercise program to work on her range of motion. I will follow up with her in 4 weeks and at that time start her in therapy if she has not making much progress with her flexion. documented in this encounter [employer] 05-10-2023 Evaluation note Encounter Date Diagnosis Assessment Notes May, Adult ADHD (attention deficit hyperactivity disorder) (ICD-10 - F90.9) [facility] Other 02-01-2024 History of Present illness Narrative* Oswaldo Dee NP - 05/04/2023 10:00 AM EST Chief Complaint Patient presents with Right Ring Finger - Follow-up HISTORY OF PRESENT ILLNESS: Karuna Dumont is an 42 y.o. @ female. RT RF injury x ~ 10 weeks (02/2023). Pt was putting towels into the washer while it was spinning and twisted her finger, heard a snap. Applied a splint to her finger for about 2 weeks. [place] [facility] [place] to having numbness in finger and unable to straighten it. Had XR at . On 03/13, pt went to [facility] and had another XR. Unable to get into hand specialist at [facility] until May 16. Continues to have [...] crooked. PT is RT handed [place] [facility] [place]R, Splint, [facility], XR 03/13/23, Ice, Heat, IBU, [facility] ALLERGIES: No Known Allergies HOME MEDICATIONS: Current Outpatient Medications Medication Instructions amphetamine-dextroamphetamine (Adderall) 20 MG tablet 1 TABLET ORALLY MID DAY 30 DAYS cyclobenzaprine (Flexeril) 10 MG tablet PLEASE SEE ATTACHED FOR DETAILED DIRECTIONS fluconazole (DIFLUCAN) 100 mg, Oral, Daily nystatin (Mycostatin) 077662 UNIT/GM powder APPLY TO AFFECTED AREA TOPICALLY EVERY DAY nystatin (Mycostatin) cream Topical, 2 times daily ondansetron ODT (ZOFRAN-ODT) 4 mg, Oral, Every 6 hours Tirzepatide (Mounjaro) 7.5 MG/0.5ML solution pen-injector INJECT 0.5 ML UNDER THE SKIN 1 (ONE) TIMEPER WEEK FOR 28 DAYS. Vyvanse 50 MG capsule TAKE 1 CAPSULE BY MOUTH EVERY DAY IN THE MORNING FOR 30 DAYS PHYSICAL EXAM: Right Hand Exam Tenderness Right hand tenderness location: tenderness over 4th middle phalanx and DIP. Range of Motion Wrist Extension: normal Flexion: normal Pronation: normal Supination: normal Muscle Strength International Trade Compliance Manager: 3/5 Other Erythema: absent Pulse: present Comments: [...] that she is welcome to get second opinionand can follow up with us as needed. Questions answered in laymen terms at the bedside. The diagnosis, home exercise plan and any ongoing restrictions/ recommendations reviewed. If unable to be reached in office, I recommend evaluation at nearest Emergency Room if any symptoms worsened or new symptoms develop for requiring urgent evaluation. Oswaldo Dee INFORMATION TECHNOLOGY AUDITOR-FURNITURE FINISHER HELPER documented in this encounterParkland Health [id number] Evaluation note* Encounter Date Diagnosis Assessment Notes Treatment Notes Treatment Clinical Notes Apr, Adult ADHD (attentio n deficit hyperactivity disorder) (ICD-10 - F90.9) [facility] Other 01-10-2024 Evaluation note* Encounter Date Diagnosis Assessment Notes Treatment Notes Treatment Clinical Notes Apr, Adult ADHD (attentio n deficit hyperactivity disorder) (ICD-10 - F90.9) [facility] Other 01-09-2024 Evaluation note* Encounter Date Diagnosis Assessment Notes Treatment Notes Treatment Clinical Notes Apr, Adult ADHD (attentio n deficit hyperactivity disorder) (ICD-10 - F90.9) [facility] Other 01-08-2024 Evaluation note* Encounter Date Diagnosis Assessment Notes Treatment Notes Treatment Clinical Notes Apr, Adult ADHD (attentio n deficit hyperactivity disorder) (ICD-10 - F90.9) [facility] Other 12-07-2023 NotePatient Education Materials Follows: Mallet [...] or lying down. General instructions ? Take qnql-dkn-qqekhyc and prescription medicines only as told by [...] by your health care p (more contentnot included)...[id number] Evaluation note * Encounter Date Diagnosis Assessment Notes Treatment Notes Treatment Clinical Notes Jan, Adult ADHD (attentio n deficit hyperactivity disorder) (ICD-10 - F90.9) [facility] Other 10-02-2023 Evaluation note* Encounter Date Diagnosis [...] in 3 months or sooner if needed. [facility] Other 09-08-2023 Evaluation note* Encounter Date Diagnosis Assessment Notes Treatment Notes Treatment Clinical Notes Dec, Adult ADHD (attentio n deficit hyperactivity disorder) (ICD-10 - F90.9) [facility] Other 09-07-2023 Evaluation note* Encounter Date Diagnosis Assessment Notes Treatment Notes Treatment Clinical Notes Dec, Adult ADHD (attentio n deficit hyperactivity disorder) (ICD-10 - F90.9) [facility] Other 08-30-2023 Evaluation note* Encounter Date Diagnosis [...] Cutaneous candidiasis (ICD-10 - B37.2) Refilled diflucan. [facility] Other 07-11-2023 Hospital Discharge instructions* Discharge Instructions* Bailee Lew, RIZWAN - FURNITURE FINISHER HELPER - 10/11/2022 8:08 PM EDT [facility] a [facility] Use an ice pack or bag [...] through Care Everywhere. * RICE: General Info (Pakistani) * Ankle Sprain (Pakistani) [facility] NotePatient Education Materials Follows: Otitis Media, [...] Follow these instructions at home: ? Take qeqc-ixm-kvavenj and prescription medicines only as told by [...] provider. Document Revised: 06/28/2021 Document Reviewed: 06/28/2021 streamit Patient Education ? 2021 Epuls.[facility] [id number] Hospital Discharge instructions* Instructions* Radha Sanders MD - 08/19/2021 May use ice or heat, whichever feels better. May use [place] for pain. Prednisone as directed. Follow-up with [...] a follow up appointment THANK YOU!!! From [facility] and [facility] On behalf of the Emergency Department staff at [facility], I would like to thank you for giving us the opportunity to address your health care needs and concerns. We hope that during your visit, our service was delivered in a professional and caring manner. Please keep [facility] in mind as we walk with [...] how we did during your visit at [email or web address] and let us know about your experience * Attachments The following attachments cannot be sent through Care Everywhere. * Herniated Disc (Pakistani) documented in this encounterDetw[facility] HospitalPerformance Horizon Group Phone: evaluation note* Diagnosis Herniated lumbar intervertebral disc- Primary Displacement of lumbar intervertebral disc without myelopathy [facility] encounter [facility] Phone: evaluation note* Diagnosis Gastroenteritis- Primary Other and unspecified noninfectious gastroenteritis and colitis documented in this encounter [facility] [employer] Phone: evaluation note* Diagnosis Sprain of right ankle, unspecified ligament, initial encounter- Primary documented in this encounter [facility] [employer]Evaluation note* Diagnosis Back pain, unspecified back location, unspecified back pain laterality, unspecified chronicity- Primary documented in this encounter [facility] OROS SystemEvaluation noteNo InformationNort Souche Other Evaluation note* Diagnosis 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 Pain in finger of right hand Pain in soft tissues of limb documented in [facility] HealthcareEvaluation note* Diagnosis Herniated lumbar intervertebral disc- Primary Displacement of lumbar intervertebral disc without myelopathy documented in this [facility]* Diagnosis 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 Finger injury, right, initial encounter documented [facility] this [facility] N[facility]ative - Reported* Type Description Date Medical History PCOS/insulin resistant Medical History PCOS (polycystic ovarian syndrom e) Medical History Frequent headaches Medical History Gestational diabetes Medical History Prediabetes Surgical History cholecystectomy 2004 Surgical History appendectomy 2006 Surgical History 2017,2019 Hospitalization History see surgical hx [facility] Other Hospital Discharge instructions* Attachments The following attachments cannot be sent through Care Everywhere. * Gastroenteritis (Pakistani) [facility] [employer] Phone: InstructionsNot on filedocumented in this encounter [facility] OR[facility] SystemInstructionsNot on filedocumented in this encounter [facility] OR[facility] SystemInstructionsNot on filedocumented in this encounter [facility] Advance Directives No Advanced Directives Records FoundDocuments on File Type Date Recorded Patient Slackman Expl anation ACP-Advance Directive ACP-Power of Contract Negotiator Summary Purpose Family History No Family History [...] n a tree branch Reason Comments Follow-up Reason Comments Pain New patient chuck merritt damon on the right hand ring finger. Ongoing since injury 02/13/2023, states that her finger got caught on a towel that got caught in the washer and it twisted her finger up. States that she is still in a significant amount of pain. XR 03/13/2023 Specialty Diagnoses / Procedures Referred By Angela hart Referred To Contact Hand Surgery / Orthopedic Surgery Diagnoses Finger injury, right, initial encounter Sprain of right ring finger, unspecified site of digit, initial encounter Nicole Lockwood, INFORMATION TECHNOLOGY AUDITOR-FURNITURE FINISHER HELPER [id number], [place] [address] Rohit Smith MD [address] [facility] [address] [place] [address] Referral ID Status Reason Start Date Expiration Date Visits Requested Visits Authorized [id number] Pending Review Specialty Services Required 3 03/12/2024 1 1 Ordered Prescriptions (unrec ognized section and content) [...] would not scan at bedside. Verified with [facility] prior to administration.) Scheduled Medication Order [...] 4 mg, IntraVENous, ONCE, 1 dose, On Mon01/03/22 at 1215 1215 (Given - Provid er: [...] Care Teams (unrecognized sec tion and content) Business Analytics Specialist Relationship Specialty Start Date End Date Johnathon Winter MD PCP - General Family Medicine 03/08/16 Business Analytics Specialist Relationship Specialty Start Date End Date Johnathon Winter MD PCP - General Family Medicine 03/08/16 Business Analytics Specialist Relationship Specialty Start Date End Date Johnathon Winter MD PCP - General Family Medicine 03/08/16 Business Analytics Specialist Relationship Specialty Start Date End Date Johnathon Winter MD [address] [place] [id number] PCP - General 03/13/23 Business Analytics Specialist Relationship Specialty Start Date End Date Johnathon Winter MD [address] [place] [phone] PCP - General Family Medicine 12/12/22 Business Analytics Specialist Relationship Specialty Start Date End Date Johnathon Winter MD [address] [place] [id number] PCP - General 03/13/23 Business Analytics Specialist Relationship Specialty Start Date End Date Johnathon Winter MD [address] [place] [address] PCP - General 03/13/23 INFORMATION SOURCE (unrecogn ized section and content) DATE CREATED AUTHOR 06/08/2022 [facility] DATE CREATED AUTHOR AUTHOR'S ORGANIZ ATION 07/17/2022 [facility] DATE CREATED AUTHOR AUTHOR'S ORGANIZ ATION 10/12/2022 [facility] DATE CREATED AUTHOR AUTHOR'S ORGANIZ ATION 03/11/2023 [facility] DATE CREATED AUTHOR AUTHOR'S ORGANIZ ATION 05/05/2023 [facility] DATE CREATED AUTHOR AUTHOR'S ORGANIZ ATION 05/18/2023 [facility] DATE CREATED AUTHOR AUTHOR'S ORGANIZ ATION 05/21/2023 [facility] FOR RECORDS PERTAINING TO PATIENTS WHO ARE [...] BE BASED ON THE PRIMARY CLINICAL RECORDS. [facility] [employer] [facility]. provides no warranty or guarantee of the accuracy or completeness of information in this document.
[2023-05-23] MEDS: LIDOCAINE HCL 10 ML, SODIUM BICARBONATE 1 MEQ INJ ×2 (13:15)
[2023-05-23] MEDS: LIDOCAINE HCL/EPINEPHRINE 10 ML, SODIUM BICARBONATE 1 MEQ INJ (13:15)
--- NOTE | 2023-05-23 14:09 | SUR.PREOP ---
05/10/23 Instructed pt on procedure, date, time, and prep. Pt became tearful and upset at end of conversation. Attempted to support pt but she did not allow it. Pt stated that she needed to leave and walked out of department. 05/11/[address] Jessica mccoy and spoke with staff there with concerns about patient welfare and anxiety. They stated they would contact her.
--- NOTE | 2023-05-23 14:23 | PC.NURSE ---
05/23/23 1315 Pt states feels nauseated during middle of biopsy. Pt given washcloth to back of neck and emesis basin held for her. Pt color became pale and skin was diaphoretic. Pt given support until end of biopsy. 1325 At end of biopsy pt reclined in chair to low semifowlers. Pt color returned back to normal. Dressing applied and gown changed for comfort. 1350 Pt states that she is feeling well and denies any more dizziness. Gait steady and pt ambulates without problems to department exit.
== END 2023-05-23 14:30 | disposition home or self-care (01) ==
LOC: MAMMO 12:12
PROVIDERS: Radiology Diagnostic Radiology; PCP Family Medicine; Visit Provider Obstetrics & Gynecology
DX: N60.32 Fibrosclerosis of left breast (principal)
CPT/HCPCS: 19081; 77065; 88305

== ENCOUNTER 2023-06-26 15:00 | Outpatient (OUT) | payer BC, SELFPAY ==
--- NOTE | 2023-06-26 15:28 | PM.CN ---
Consult Note: HPI Data of Consult Patient: new to practice Consult date: 06/26/23 Requesting Physician: Christiano Rivera MD Primary Care Provider: Radha Sanchez MD Consult Narrative Reason for consult: low back, bilateral leg pain Narrative: 42yof who presents for evaluation. notes worsening low back and bilateral lower extremity pain for several years. evaluated by nsg, who did not recommend surgery. imaging shows disc bulging and stenosis at l4-5 and l5-s1. has engaged in >6 weeks of provider directed home exercise program and pt, with no lasting benefit. uses ibuprofen as needed, with limited benefit. denies adverse med side effects. cc:: CC: Christiano Rivera MD Review of Systems ROS Status of ROS 10 or more systems reviewed and unremarkable except as noted in history and below [facility] Medical History (Updated 06/26/23 @ 15:30 by Christiano Rivera MD) White coat syndrome with high blood pressure without hypertension ?R03.0 - Elevated blood-pressure reading, without diagnosis of hypertension (ICD-10) Migraines ?G43.909 - Migraine, unspecified, not intractable, without status migrainosus (ICD-10) Metabolic syndrome ?E88.810 - Metabolic syndrome (ICD-10) Insulin resistance ?E88.819 - Insulin resistance, unspecified (ICD-10) History of PCOS ?Z87.42 - Personal history of other diseases of the female genital tract (ICD-10) ADHD ?F90.9 - Attention-deficit hyperactivity disorder, unspecified type (ICD-10) Surgical History S/P breast biopsy, left ?Z98.890 - Other specified postprocedural states (ICD-10) H/O tubal ligation ?Z98.51 - Tubal ligation status (ICD-10) H/O section ?Z98.891 - History of uterine scar from previous surgery (ICD-10) History of cervical cerclage ?Z98.890 - Other specified postprocedural states (ICD-10) Status post appendectomy ?Z90.49 - Acquired absence of other specified parts of digestive tract (ICD-10) Hx of cholecystectomy ?Z90.49 - Acquired absence of other specified parts of digestive tract (ICD-10) Meds Home Medications and Allergies Home Medications ?Medication ?Instructions ?Recorded ?Confirmed ?Type dextroamphetamine-amphetamine 20 20 mg PO .evening PRN hyperactivity 05/10/23 05/23/23 History mg tablet (Adderall) ibuprofen 200 mg tablet (Advil) 800 mg PO TID-QID PRN pain 05/10/23 05/23/23 History lisdexamfetamine 50 mg capsule 50 mg PO DAILY 05/10/23 05/23/23 History (Vyvanse) tirzepatide 7.5 mg/0.5 mL 7.5 mg subcut QWEEK 05/10/23 05/23/23 History subcutaneous pen injector (Mounjaro) Allergies Allergy/AdvReac Type Severity Reaction Status Date / Time No Known Drug Allergies Allergy Verified 05/23/23 14:07 Exam Narrative Exam Narrative: Psych-alert and oriented x 3. Attentive and appropriate, constitutionally normal, displays normal mood and affect per situation. There are no obvious deficits in memory, reasoning, or intellect.? Skin-no obvious rashes, bruising, erythema noted to the patient's area of pain.? Extremities- extremities are warm with minimal edema and palpable pulses. Lumbar-tenderness to palpation noted in the lumbar spine and paraspinal musculature. Pain is elicited with flexion, extension, and lateral rotation of the lumbar spine. Range of motion is diminished with these motions. Facet loading maneuvers are positive. Strength-noted to be unremarkable with the exception of decreased strength rated at 4 out of 5 in bilateral quadriceps femoris, anterior tibialis. Sensory-no notable sensory deficits in the bilateral lower extremities to touch or pinprick in all dermatomal distributions with the exception to decreased sensation to the bilateral L4, 5 dermatomal distribution Coordination remains intact.? Gait remains non-antalgic Assessment and Plan Assessment and Plan (1) Lumbar stenosis with neurogenic claudication: (2) Lumbar disc displacement without myelopathy: Plan 42yof who presents for evaluation. failed conservative measures, as noted. imaging reviewed, as noted. given symptoms and imaging, prudent to attempt bilateral l5-s1 tfesi under fluoroscopic guidance. depending on response, may benefit from bilateral l4-5 tfesi under fluoroscopic guidance. she is in agreement. meds reviewed, no changes. follow up after procedure.
== END 2023-06-26 15:01 | disposition home or self-care (01) ==
LOC: PM 15:00
PROVIDERS: PCP Family Medicine; Visit Provider Anesthesiology
DX: M48.062 Spinal stenosis, lumbar region with neurogenic claudication (principal); M51.26 Other intervertebral disc displacement, lumbar region
CPT/HCPCS: G0463

== ENCOUNTER 2023-07-17 07:46 | Day surgery (SDC) | payer BC, SELFPAY ==
--- OUTSIDE RECORDS SUMMARY | 2023-07-17 07:52 | XMS_ITS | CCD ---
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 INTRAEPITHELIAL LESION OR MALIGNANCY. THIS SPECIMEN WAS RESCREENED PART OF OUR .NET PROGRAMMER PROGRAM. Performed at: WB Performed By: #### [id number] #### [facility] [address] [address] [address] Dang Kirby HPV Aptima Negative Normal Negative [facility] Comment on above: Result Comment: This nucleic acid amplification test detects fourteen high-risk HPV types (16,18,31,33,35,39,45,51,52,56,58,59,66,68) without differentiation. Performed at: =G Performed By: #### 4 [id number] #### [facility] [address] [address] [address] Dang Kirby HPV Genotype Reflex Comment Normal [facility] Comment on above: Result Comment: Crit eria not met, HPV Genotype not performed. Performed at: WB Performed By: #### 4 [id number] #### [facility] [address] [address] [address] Dang Kirby Methodology: Comment Normal [facility] Comment on above: Result Comment: This liquid based ThinPrep(R) pap test was screened with the use of an image guided system. Performed at: WB Performed By: #### [id number] #### [facility] [address] [place] [address] Dr. Dang Kirby Note: Comment Normal [facility] Comment on above: Result Comment: The Pap smear is a screening test designed to aid in the detection of premalignant and malignant conditions of the uterine cervix. It is not a diagnostic procedure and should not be used as the sole means of detecting cervical cancer. Both false-positive and false-negative reports do occur. . Performed at: WB Performed By: #### 4 [id number] #### [facility] [address] [place] [address] Dr. Dang Kirby Performed by: Comment Normal [facility] Comment on above: Result Comment: Flavia Stanford, Gis Mapping Technician (ASCP) Performed at: WB Performed By: #### 4 [id number] #### [facility] [address] [place] [address] Dr. Dang Kirby QC reviewed by: Comment Normal [facility] Comment on above: Result Comment: Valentino Victor, Gis Mapping Technician Performed at: WB Performed By: #### [id number] #### [facility] [address] [place] [address] Dr. Dang Kirby Specimen adequacy: Comment Normal [facility] Comment on above: Result Comment: Sati sfactory for evaluation. No endocervical component is identified. Performed at: WB Performed By: #### 4 [id number] #### [facility] [address] [place] [address] Dr. Dang Kirby MG MAMM DIAGNOSTIC 3D RAMA CA Don 04-29-2022 MG MAMM DIAGNOSTIC 3D RAMA CAD Patient: KARUNA DUMONTCelia Exam Date: 04/29/2022 : 1980 Gender:F Ordering : DR SANJEEV LOPEZ . Admission #: [id number] Family : Order #: [id number] CLICK HERE TO VIEW EXAM RADIOLOGY REPORT PROCEDURE: MAMMOGRAM DIAGNOSTIC 3D BILATERAL CAD, 04/29/2022, 10:05 ULTRASOUND BREAST RIGHT LIMITED, 04/29/2022, 11:04 COMPARISON: None. INDICATIONS: Pain of breast Calculator Name NCI Breast Cancer Risk Assessment Tool 5 Year Breast Cancer Risk Not Reported. Lifetime Breast Cancer Risk Not Reported. Personal Breast Cancer No Personal Ovarian Cancer No Treatments None Family Cancers None LOCATION: [facility] BREAST COMPOSITION: Scattered areas fibroglandular density. [...] M.D. on 04/29/2022 at 14:55 Normal [facility] US BREAST RIGHT LIMITEDon US BREAST RIGHT LIMITED Patient: KARUNA DUMONTCelia Exam Date: 04/29/2022 : 1980 Gender:F Ordering : DR SANJEEV LOPEZ . Admission #: [id number] Family : Order #: [id number] CLICK HERE TO VIEW EXAM RADIOLOGY REPORT PROCEDURE: MAMMOGRAM DIAGNOSTIC 3D BILATERAL CAD, 04/29/2022, 10:05 ULTRASOUND BREAST RIGHT LIMITED, 04/29/2022, 11:04 COMPARISON: None. INDICATIONS: Pain of breast Calculator Name NCI Breast Cancer Risk Assessment Tool 5 Year Breast Cancer Risk Not Reported. Lifetime Breast Cancer Risk Not Reported. Personal Breast Cancer No Personal Ovarian Cancer No Treatments None Family Cancers None LOCATION: [facility] BREAST COMPOSITION: Scattered areas fibroglandular density. [...] M.D. on 04/29/2022 at 14:55 Normal [facility] Coding Summaryon 04-18-2022 Coding Summary HTMLBase 64 TzcdbqubFHc6aHc+PGhlYWQ+ OH4XWNOwT13dwDFdzV4EH7fO NC5MURBUJTESDO9WGT4zfTH2 EBdvY2CviqDt XywldRPnAZ11XBl1RAF8kYzg EExweG6huFXyF3w5TyEwZS21 bS46CTzsELMwAfR2XwRtmfnv bWFy L9qhTrYifKDtUrq+PHRhYmxl IHdpZHRoPScxMDAlJyBzdHls OH3vUm6jAQEyGBEifNlteZJf OiBj i6xhMYZkFCovDJ7uaHbeD7Wj bBE0BBDkz9r1Mx19mQY+PHRk MUX3rGzyIXqdf080MeDit2ua IDM3 nVWcWXgrPIS2R22lv0V3WEXw MPEiWZE7eYA0oH7yhGfxbibe U4OofAPwHvH4OXS3hKHcdN1n bGln ogmbuL3vUbc+B37MEA6DWIKY OF4RVyr6I9NtXlfobSV+PC90 IHGvTS62wBEiuLCng8myhTf0 JzEw TMEiEHI1aJbwEOkpe5TvHGCr K25fyXJkn5B8LYQabAqwyUTr QuGhnOU4iQ0pQGmykmgck7pw dzsn Xdadn7bzrx69pX83V67xOKsq OMTeZTC3DINuVXDfkNgwze8f gQ3cCa4+JKnyg5ixb3innEi5 IjIw TEZfgmFcaRrsEYN9b6EnZy57 S0IpvBipo2CrDmo7sd63iMTj l0R8cFH5GEayLKOpzI6iEKiu ZnQ6 UAHrMyAmmM39pFOkWPasRz2r yJgfkByiOT2cOINvvtkhSNRu qQ5oNNEvlCKycOizEW0gPHRi bjtm p329FgSlLDI0OTFpdJHjX7Ot fE2zXtQhMHEcUFMqJ4BaeBTb JSswQ592TYnuAdN5XHBqklPg Y2Fs NWWzgKxkExU3a3Q7Ad6Ml6Rz rkyrMHL0UWksRECrIpM8YqWb DpS6W6InDxh0IQKmbVvwRP5c J3Bh DNFfefvuwutlgPO7QCFyOMQg fQ84bMWrLSuaNg6ox1B9w088 ZKYrXXVrtH20El2sgQhzOXLk dCBU eH6midnwb3ssrpogKhDjRAGy RSr5JIj7VPQteRcbCuYfDYV5 VpS0JTE2aAWtlC4hxGltghcf dG9w Oyc+O48oqO4dLGM9LJI4kgkn UHIyaoOlFG35BE75V9TyXdlb dGFibGU+NKFrgmTpuNseYH2r YmFj a6vxp2CdUHwyA8CjVSNoAPcw Msr4IEKcIXZ5uTJ8kK6fPXEw MTzws7M5wDF9S0QmzyIjsx7o b2xs LYVwYUsfQ41ajJCuj0T0EPQj jQT9VEOltQyeReBhiM80Jjj+ JLPrpVuve2CgKqgud5ncj6lt dGg9 FqFjCHGmwyWdwQvhRUW5z5Kl Ju58F90zNDojVRLoDVUkOJNp NWGitUriqf1smI7pYj1+PGNv bCB3 fBQ1wT4fSZLeCxX6JGdcA789 LfKtwVNuGjqci1rvw3jumBk8 HpQbKLCkhlRteGvkKSK8d6Vs Lz48 D02zISnyEWCzOQGsQMTxPIYf sPsrga7cxS7xQf4+HK0jo0oh sy38lY65eEB+BSTiPBN1jJam PSdw BUUkcT9lWRffZoQ2BPEdPbXc wE10iHCtKRdjNh7opTpphKzy RD2bFNFfgsuqc278UdZrn5wx IDEw aNPcEYlwUTK3N64lp9I4XZUb BYZjOLV1hRU8gC8rdAnagaga bGVmdDsgdmVydGljYWwtYWxp Z246 IHRvcDsnPlBhdGllbnQgTmFt LTt7A5WkUty5MXTmeRgmPC2w yCGvEJivOy2caKokdAedGN1s NTBp gwqkp197YhIhe0czFMFnvLYf XWvyDJD1P78ix9U0ZKDqPFUz LCM7xNP2rW4riTbpigbjoAIr dDsg kfBswGnfOQlsVHzbN194ZBGb yIorYtVvfqQbLZCjiKC5QF33 QU66dTIbh0O8wDT4A2WoPKVd bmct qetktQE5KUGoNLRnuV22Dw5b qTakCs9oOGFoLGV5ODXueRIs Z4RdoU5bPuLwOXHpHBNdK7Ln eHQt NBoxK914EPnkWuU1HGUmppWn D2ZrZPZhjSvaBlF1h7J0Sr4F G3E5IC45HX76rIZtv0G1mLS7 J3Bh UOAepzgpfenmaTF4USLeHIMd gJ25Nb5pmFfmYu3dEYLxWOW9 JRRacHNfB2DamT9xLfJvGDWq MDAw X0KpnSKlOZgwP995RAhfGxH0 EDUxuwUaI0MtRNSrkHapQfV8 e9M0Rs7IQEa2AE78ID06hJOl c3R5 oBR0F9EzUTBlqjznmqjixEQ3 MXNpPMQloZ69Ae3fhMwgXt6u IPPkZPN3DXLmvJEnK0OzmP9x OiAj YFTeMDRfW9RfhSTtBSftZ130 EHjwUaZ3OEJplpGbQ9QdQQJr zPfhGhD0r1A0Af1CNQXxOX20 IFR5 tQO7VG01VR19A0RbFbwkxMQh bGU+PHRhYmxlIHdpZHRoPScx LMPkZtKzpRqwDE0jNm0gTOOz LWNv zQiqtILnTwMzu9emLJAlZUli OC4esWfeO8OhzTT1AYNur0s0 Lz51K52dH8KkyXO+PGNvbCB3 aWR0 rZ2yMiZtWuV9VDicF567KnCg cNZvTeqat7tkx5huvCo7AbX1 JCFbmfTmkTrsEXS9k7EjDl93 Y29s IHdpZHRoPSIxNSUiIHZhbGln bp9bqG1fEp2+IBUgwED6bUX5 nH1qFeJbJtJ7ZUynZ841UxXy cCIv Dtyfs1aal9iqvJy9XpGkXZRd wbSvhVnuAIE5b8VaRl39V3Pj zEkgg5PmDje2ie83xMWvf5E2 bGU9 H4LdCAMdcdhszGLmlUpdAC7n YKLkqaoeFTIdyX6nLPRdX4x0 JrBcByI8CCjhG5VbfkM3HPGq cHQg JVqgRCF1H14zl1K1CPYjEUWh BPK6xZP2qA6cgDlktkaawACd sUjbwlHabHjcZZhmQRwkD560 IHRv fIttSKYuiO5jNZGqiGHqoFfq RQ2uNRTpwazxLclUBLYCYWnn UC2BMtKMGXAXZ203C3DaRou0 ZCBz dHevPM4tuVVnLHrdPi7jwRap aZprQD6mZAGpvlccECAupT8p OBDkzQLqwZcbMC0vWIWfrpxl b250 VzEwAOO1VNExbTBkN2OvgX4v ZcPxQBXkGEAnB8EujCRlIXqc X779IHxmBeW6XLDyckCwR9Nr LWFs vLudGgX4i0I5Nn0yPU9dLC4z QTsnPT73MW07jNDux2V3rVT2 U5IuMDPcqptghwxvuUK1JCQo MDUw yW74dXZpJJbgRk6wr8L4u227 QCFmVRMnhP40Yl0goNerZMHd wALRuC9ynkwuj5jvgcsvWjHm MDAw YPi1TVk6QIUdiTseKdIcVSD9 DwH2HCA5tAFmlH7smEnegnsx jS8rFrz+ScsbABRbasX7V0Cs Pjx0 AIDalZwpVL2zrSSnZUneKg8d mIlrnYthZJ6yQYYmfnbcMKSw cG0mRKJrjQWajZexQL6mULAp bjtm t405OkIiYYS1TIXshTVsB8Pn sR2lNlRvLFZbEQTmX2FdiSZx OGryK046TOkyAjB7VIYdmrLp Y2Fs NZQxcBfvIcA0p0Z9La0DIP7D KEB0I3YeEfg0HNFybUvqNT8g nOTeBUkaGs3qpQfzaZaiZJ2z NTBp oubqQAOweX7lYMGktODyySyq JA8aZQUdyrsfr312LtVhTIH4 NTBvxKTbO4JyqY4nVcBtQVYu MDAw U8KbuMGvRGzpH439ZOkvQnR3 VKGuycQbD6GpRXXkaHovWtX9 q1Y9Ze6EQWujpNS+GL78vy31 L3Rh RvrmSyb7KXCxEQF9aZY5kC3v AQBpMPpfx5O9qVF4F4EqytDs hk8am8wbIMQoTQqqE02zzWNe c2U7 WZXauVQ3LVOcjEeaVmExnA02 Oyc+CKVuoHgcd4OiZuozl0yx j0nffFv7LxGmUJEirnNgdDwi PSJ0 q1WtUs05H15eUGxyNOHkLTOx YKLyYGSfoUsiij8gjT4aQo0+ YPXigHC7xZW5lT6aPqFxChV9 YWxp B830QfCucBTiUetwc4vwj9un bIn0PzOfILIipoCltXetMXV4 h8MaTq26T3FjvKolk2GhKvz6 cj48 jSYkz7D7pEK0H9HtXKIfndvz sGDslEokLB6iEXUyypzsDPQl nQ5uBRPcX8k0OnKlFuJ4QIep O2Zv ssB6YJVilIRpCQNuwNINcK5i exciw5abouwxPiRpHDMkZOk4 IWb2GHUtuKszWoLiHTM8LrH9 ZXJ0 rICyaO8zaVrjqobekT8nFbp+ SRy2w7dyzLKcSV1elHJ9AQ41 LM86yQUtw8R2kSM6N7FuWFNq bmct dfxdzSD3CXVbICTvgI69Sj2f wJfaBp9jKRNuJUQ4QODipHGl D0WgaK9kSoMkVXPjOSFiG1Nc eHQt TAowB314ZFzwPnE7AASyanNk F7MmSTSscAmjJxS0z4H1Do1W PK81HJ57QW02ePVfe0K5nIW0 J3Bh SRSokmbgikyvbLK1DDIsRHNv cJ08Ru5nbEyqJl8vMFEgHXP4 SGPbhCGzA9KhzR2yIuLsSWXe MDAw Z1MhlSEhFZnnP850VOsjBtE2 LKVtgkYqG9HhGEWwrDikSrB7 w3O5Gg3SWn84AB03PY74zKSu c3R5 tUQ1A9AwYNRjrfjksheomWQ9 AWFdUQDoaX35Fu7vfNwcHd5w QTGuYAD5WNQsrFWvI6HcaE9y OiAj AHQtVIPiH3IohBLhDCgwE009 POfcMsU5QQHhpaVxZ7HjBCFq vEeiDyL7k2Y6On4BCItawne0 L3Rk PjwvdHI+MB12HSUbXF67jDIf iEUcu4oqbIu3IfUeZNRtEXL1 uKvbATcmk9XqNEAjT27kiZOf c2U6 IGN (more content not included)... Normal [facility] ED Clinical Summaryon 2022 ED Clinical Summary [facility] ? Urgent Care [address] [place], [place] [id number] Clinical Summary PERSON INFORMATION Name: KARUNA DUMONT Age: 41 Years Sex: FEMALE : 1980 MRN: Acct#: Visit Reason: UC - Headache; BI LAT EAR PAIN, DIZZINESS, HEADACHE, CONGESTION Arrival: 04/08/2022 16:57:05 Discharge: 04/08/2022 19:05:00 LOS: 000 02:08 Check In: 04/08/2022 16:57:05 Checkout: 04/08/2022 19:05:00 Address: [address] [facility] [address] PCP: Mary Díaz DO PROVIDER INFORMATION Provider [...] With: Address: When: Mary Díaz [address] [place] [address] Business (1) Comments: Patient seen [...] dysfunction; Mild nausea Patient Understands: Yes - Patient/family/caregiver verbalizes understanding of instructions given Comment: Normal [facility] ED Patient Summaryon 023 ED Patient Summary [facility] ? Urgent Care [address] [place] [address] [id number] PATIENT DISCHARGE INSTRUCTIONS Patient Information Name: KARUNA DUMONT Age: 41 Years Date of : 1980 Reason For Visit: UC - Headache; BI LAT EAR PAIN, DIZZINESS, HEADACHE, CONGESTION Arrival Time: 04/08/2022 16:57:05 Primary Care Physician: Mary Díaz DO Attending Physician: Ad Ortega Comment: Patient Education With: Address: When: Mary Díaz [address] [place], [place] [id number] Business (1) Comments: Patient seen in urgent [...] Follow these instructions at home: ? Take usdp-vni-iuxftsr and prescription medicines only as told by [...] ear, usual (more content not included)... Normal [facility] Note- Provideron 04-08-2022 Urgent [...] 10. Impression and Plan Diagnosis Mild nausea (KWG60-JW R11.0, Discharge, Medical) Inner ear dysfunction (QNK59-XU H83.90, Discharge, Medical) Headache, classical migraine (BMM25-UW G43.109, Discharge, Medical) Acute otitis media, bilateral (TKU71-BV H66.93, Discharge, Medical) Plan Condition: Stable. Disposition: [...] tab(s), 0 (more content not included)... Normal [facility] [place] 023 Urgent Care Record [facility] ? Urgent Care [address] [id number] PATIENT DISCHARGE INSTRUCTIONS Patient Information Name: KARUNA [...] (H83.90) Mild nausea (R11.0) UC - Headache ([id number]) If you received any narcotics, sedation, or [...] With: Address: When: Mary Díaz [address] [place] [address] Business (1) Comments: Patient seen [...] and treatment you received today in the [facility] were for an urgent problem and are not intended as complete care. It is important for you to follow up with a doctor, nurse practitioner, or physician?s catalog library assistant for ongoing care. If your symptoms [...] so we can reach you if necessary. [facility] has provided you with a complete list of medications post discharge. Please inform your civil engineering draftsperson/provider of your visit and for further instruction on these medications. Any specific questions regarding your chronic medications and dosages should be discussed with your primary care physician(s) and/or pharmacist. New Medications [id number] [place], [place] [id number], [phone] amoxicillin-clavulanate (!-Augmentin 875 mg-125 mg oral tablet) 1 [...] with signs (more content not included)... Normal [facility] CT CERVICAL SPINE WO CONTRAS Ton [...] Oziel Fox MD 02/16/22 Final result Normal [facility] XR CLAVICLE LEFTon 2 XR CLAVICLE LEFT [...] Miller Romo MD 02/16/22 Final result Normal [facility] XR SHOULDER LEFT (MIN 2 VIEW [...] Emil Flores MD 02/16/22 Final result Normal [facility] CBC with Auto Differentialon 01-03-2022 Absolute Eos # 0.10 [place] [facility] Absolute Lymph # 1.60 [facility] Absolute Dawson # 0.40 [facility] Basophils (Bld) [#/Vol] 0.00 10*3/uL [facility] Basophils/100 WBC (Bld) 1 % 0 - 2 % B [facility] Eosinophils/100 WBC (Bld) 2 % 1 - 4 % [facility] Hematocrit (Bld) [Volume fraction] 46.0 % 36 - 46 % [facility] Hemoglobin (Bld) [Mass/Vol] 15.4 g/dL 12 - 16 g/dL [facility] Interpretation and review of laboratory results Abnormal [facility] Lymphocytes/100 WBC (Bld) 29 % 24 - 44 % [facility] MCH (RBC) [Entitic mass] 28.6 pg 26 - 34 pg [facility] MCHC (RBC) [Mass/Vol] 33.4 g/dL 31 - 3 7 g/dL [facility] MCV (RBC) [Entitic vol] 85.9 fL 80 - 100 fL [facility] Monocytes/100 WBC (Bld) 8 % 2 - 11 % [facility] Platelet distribution width (Bld) [Ratio] 14.1 % 12.5 - 15.4 % [facility] Platelet mean volume (Bld) [Entitic vol] 7.6 fL 6 - 12 fL [facility] Platelets (Bld) [#/Vol] 277 10*3/uL [facility] RBC (Bld) [#/Vol] 5.36 10*6/uL High 4 - 5.2 m/uL [facility] Segmented neutrophils/100 WBC (Bld) 60 % 36 - 66 % [facility] Segs Absolute 3.40 [facility] WBC (Bld) [#/Vol] 5.6 10*3/uL [facility] CBC with Diffon 01-03-2022 Abs. Basophil 0.00 k/uL Normal 0.0-0.2 [facility] Comment on above: Performed By: #### H CG, LIP, MG, CDP, CMPX #### [place] [address] Burn Center Nurse: Estevan Corcoran MD Abs.Neutrophil (Seg) 3.40 k/uL Normal 1.8-7.7 [facility] Comment on above: Performed By: #### H CG, LIP, MG, CDP, CMPX #### [address] [address] Burn Center Nurse: Estevan Corcoran MD Basophils/100 WBC (Bld) 1 % Normal 0-2 M [facility] Comment on above: Performed By: #### H CG, LIP, MG, CDP, CMPX #### [place] [id number] [facility] Center Nurse: Estevan Corcoran MD Eosinophils (Bld) [#/Vol] 0.10 10*3/uL Normal 0.0-0.4 [facility] Comment on above: Performed By: #### H CG, LIP, MG, CDP, CMPX #### [facility] [id number] [place], [place] [id number] Burn Center Nurse: Estevan Corcoran MD Eosinophils/100 WBC (Bld) 2 % Normal 1-4 [facility] Comment on above: Performed By: #### H CG, LIP, MG, CDP, CMPX #### [place] [address] Burn Center Nurse: Estevan Corcoran MD Erythrocyte distribution width (RBC) [Ratio] 14.1 % Normal 12.5-15.4 [facility] Comment on above: Performed By: #### H CG, LIP, MG, CDP, CMPX #### [place] [address] Burn Center Nurse: Estevan Corcoran MD Hematocrit (Bld) [Volume fraction] 46.0 % Normal 36-46 [facility] Comment on above: Performed By: #### H CG, LIP, MG, CDP, CMPX #### [place] [address] Burn Center Nurse: Estevan Corcoran MD Hemoglobin (Bld) [Mass/Vol] 15.4 g/dL Normal 12.0-16.0 [facility] Comment on above: Performed By: #### H CG, LIP, MG, CDP, CMPX #### [place] [id number] Burn Center Nurse: Estevan Corcoran MD Lymphocytes (Bld) [#/Vol] 1.60 10*3/uL Normal 1.0-4.8 [facility] Comment on above: Performed By: #### H CG, LIP, MG, CDP, CMPX #### [place] [address] Burn Center Nurse: Estevan Corcoran MD Lymphocytes/100 WBC (Bld) 29 % Normal 24-44 [facility] Comment on above: Performed By: #### H CG, LIP, MG, CDP, CMPX #### [place] [address] Burn Center Nurse: Estevan Corcoran MD MCH (RBC) [Entitic mass] 28.6 pg Normal 26-34 [facility] Comment on above: Performed By: #### H CG, LIP, MG, CDP, CMPX #### [place] [address] Burn Center Nurse: Estevan Corcoran MD MCHC (RBC) [Mass/Vol] 33.4 g/dL Normal 31-37 [facility] Comment on above: Performed By: #### H CG, LIP, MG, CDP, CMPX #### [place] [address] Burn Center Nurse: Estevan Corcoran MD MCV (RBC) [Entitic vol] 85.9 fL Normal 80-100 M [facility] Comment on above: Performed By: #### H CG, LIP, MG, CDP, CMPX #### [place] [address] Burn Center Nurse: Estevan Corcoran MD Monocytes (Bld) [#/Vol] 0.40 10*3/uL Normal 0.1-1.2 [facility] Comment on above: Performed By: #### H CG, LIP, MG, CDP, CMPX #### [address] [place] [id number] Burn Center Nurse: Estevan Corcoran MD Monocytes/100 WBC (Bld) 8 % Normal 2-11 M [facility] Comment on above: Performed By: #### H CG, LIP, MG, CDP, CMPX #### [place] [address] Burn Center Nurse: Estevan Corcoran MD Neutrophil (Seg) 60 % Normal 36-66 [facility] Comment on above: Performed By: #### H CG, LIP, MG, CDP, CMPX #### [place] [address] Burn Center Nurse: Estevan Corcoran MD Platelet mean volume (Bld) [Entitic vol] 7.6 fL Normal 6.0-12.0 [facility] Comment on above: Performed By: #### H CG, LIP, MG, CDP, CMPX #### [place] [address] Burn Center Nurse: Estevan Corcoran MD Platelets (Bld) [#/Vol] 277 10*3/uL Normal 140-450 [facility] Comment on above: Performed By: #### H CG, LIP, MG, CDP, CMPX #### [place] [address] Burn Center Nurse: Estevan Corcoran MD RBC (Bld) [#/Vol] 5.36 10*6/uL High 4.0-5.2 [facility] Comment on above: Performed By: #### H CG, LIP, MG, CDP, CMPX #### [place] [address] Burn Center Nurse: Estevan Corcoran MD WBC (Bld) [#/Vol] 5.6 10*3/uL Normal 3.5-11.0 [facility] Comment on above: Performed By: #### H CG, LIP, MG, CDP, CMPX #### [facility] [address] [place] [address] Burn Center Nurse: Estevan Corcoran MD CT ABDOMEN PELVIS W [...] collapsed. No inguinal or pelvic sidewall lymphadenopathy. Peritoneum/Retroperitone um: Abdominal aorta normal in appearance and caliber. [...] Papito Mishra MD 01/03/22 Final result Normal [facility] CT ABDOMEN PELVIS W IV CONTR AST Additional Contrast? Noneon 01-03-2022 1. Fluid within smal l bowel loops and ascending colon which can [...] collapsed. No inguinal or pelvic sidewall lymphadenopathy. Peritoneum/Retroperitone um: Abdominal aorta normal in appearance and caliber. No retroperitoneal lymphadenopathy. Psoas muscles normal in size and symmetric in appearance. Bones/Soft Tissues: Small midline fat containing periumbilical hernia measuring up to 3.6 x 1.7 cm on image 120, series 2. Mild degenerative changes in the lumbar spine. Severe disc space narrowing at L5-S1. Mild levoscoliosis of the lumbar spine. [facility] Papito Mishra MD - [...] collapsed. No inguinal or pelvic sidewall lymphadenopathy. Peritoneum/Retroperitone um: Abdominal aorta normal in appearance and caliber. [...] No clear evidence for small bowel obstruction. [employer] P[employer] Work Phone: Radiology Study observation (narrative) [facility] MCKINLEY [employer] Phone: CT ABDOMEN PELVIS W IV CONTR AST Additional Contrast? NoneOrdered By: Papito Mishra on 01-03-2022 [employer] [employer] Phone: Comp Metabolic Pr/rfx MGon 1 ALT [Catalytic activity/Vol] 28 U/L Normal 5-33 [facility] Comment on above: Performed By: #### H CG, LIP, MG, CDP, CMPX #### [facility] [address] [place] [address] Burn Center Nurse: Estevan Corcoran MD (cont.) [facility] Comment on above: Result Comment: Aver age GFR for 30-39 years old: 107 mL/min/1.73sq m Chronic Kidney Disease: <60 mL/min/1.73sq m Kidney failure: <15 mL/min/1.73sq m eGFR calculated using average adult body mass. Additional eGFR calculator available at: http://www.[employer]/multiple_crcl_2012.htm Performed By: #### H CG, LIP, MG, CDP, CMPX #### [facility] [address] [place] [address] Burn Center Nurse: Estevan Corcoran MD Albumin [Mass/Vol] 4.3 g/dL Normal 3.5-5.2 [facility] Comment on above: Performed By: #### H CG, LIP, MG, CDP, CMPX #### [place] [address] Burn Center Nurse: Estevan Corcoran MD Albumin/Glob Ratio 1.4 Normal 1.0-2.5 [facility] Comment on above: Performed By: #### H CG, LIP, MG, CDP, CMPX #### [place] [address] Burn Center Nurse: Estevan Corcoran MD Alkaline Phos 105 U/L High 35-104 [facility] Comment on above: Performed By: #### H CG, LIP, MG, CDP, CMPX #### [place] [address] Burn Center Nurse: Estevan Corcoran MD Anion gap [Moles/Vol] 13 mmol/L Normal 9-17 [facility] Comment on above: Performed By: #### H CG, LIP, MG, CDP, CMPX #### [place] [address] Burn Center Nurse: Estevan Corcoran MD AST [Catalytic activity/Vol] 26 U/L Normal <32 [facility] Comment on above: Performed By: #### H CG, LIP, MG, CDP, CMPX #### [place] [address] Burn Center Nurse: Estevan Corcoran MD Bilirubin [Mass/Vol] 0.3 mg/dL Normal 0.3-1.2 [facility] Comment on above: Performed By: #### H CG, LIP, MG, CDP, CMPX #### [place] [address] Burn Center Nurse: Estevan Corcoran MD Calcium [Mass/Vol] 8.7 mg/dL Normal 8.6-10.4 [facility] Comment on above: Performed By: #### H CG, LIP, MG, CDP, CMPX #### [place] [address] Burn Center Nurse: Estevan Corcoran MD Chloride [Moles/Vol] 104 mmol/L Normal 98-107 [facility] Comment on above: Performed By: #### H CG, LIP, MG, CDP, CMPX #### [place] [address] Burn Center Nurse: Estevan Corcoran MD CO2 [Moles/Vol] 21 mmol/L Normal 20-31 [facility] Comment on above: Performed By: #### H CG, LIP, MG, CDP, CMPX #### [place] [address] Burn Center Nurse: Estevan Corcoran MD Creatinine [Mass/Vol] 0.60 mg/dL Normal 0.50-0.90 [facility] Comment on above: Performed By: #### H CG, LIP, MG, CDP, CMPX #### [place] [address] Burn Center Nurse: Estevan Corcoran MD GFR, Amer >60 Normal >60 [facility] Comment on above: Performed By: #### H CG, LIP, MG, CDP, CMPX #### [place] [address] Burn Center Nurse: Estevan Corcoran MD GFR,non Amer >60 Normal >60 [facility] Comment on above: Performed By: #### H CG, LIP, MG, CDP, CMPX #### [address] [address] Burn Center Nurse: Estevan Corcoran MD Glucose [Mass/Vol] 105 mg/dL High 70-99 [facility] Comment on above: Performed By: #### H CG, LIP, MG, CDP, CMPX #### [place] [address] Burn Center Nurse: Estevan Corcoran MD Potassium [Moles/Vol] 3.5 mmol/L Low 3.7-5.3 [facility] Comment on above: Performed By: #### H CG, LIP, MG, CDP, CMPX #### [place] [address] Burn Center Nurse: Estevan Corcoran MD Protein [Mass/Vol] 7.4 g/dL Normal 6.4-8.3 [facility] Comment on above: Performed By: #### H CG, LIP, MG, CDP, CMPX #### [place] [address] Burn Center Nurse: Estevan Corcoran MD Sodium [Moles/Vol] 138 mmol/L Normal 135-144 [facility] Comment on above: Performed By: #### H CG, LIP, MG, CDP, CMPX #### [place] [address] Burn Center Nurse: Estevan Corcoran MD Urea nitrogen [Mass/Vol] 12 mg/dL Normal 6-20 [facility] Comment on above: Performed By: #### H CG, LIP, MG, CDP, CMPX #### [place] [address] Burn Center Nurse: Estevan Corcoran MD Comprehensive Metabolic Pane l w/ Reflex to MGon 01-03-2022 Albumin [Mass/Vol] 4.3 g/dL 3.5 - 5.2 g/dL [facility] Albumin/Globulin [Mass ratio] 1.4 {ratio} 1 - 2.5 [facility] ALP (Bld) [Catalytic activity/Vol] 105 U/L High 35 - 104 U/L [facility] ALT [Catalytic activity/Vol] 28 U/L 5 - 33 U/L [facility] Anion gap [Moles/Vol] 13 mmol/L 9 - 17 mmol/L [facility] AST [Catalytic activity/Vol] 26 U/L NINF - 32 U/L [facility] Bilirubin [Mass/Vol] 0.3 mg/dL 0.3 - 1 .2 mg/dL [facility] Calcium [Mass/Vol] 8.7 mg/dL 8.6 - 10. 4 mg/dL [facility] Chloride [Moles/Vol] 104 mmol/L 98 - 10 7 mmol/L [facility] CO2 [Moles/Vol] 21 mmol/L 20 - 31 mmol/L [facility] Creatinine [Mass/Vol] 0.6 mg/dL 0.5 - 0.9 mg/dL [facility] GFR >60 60 - PI NF mL/min [facility] GFR Non- >60 60 - PINF mL/min [facility] GFR/1.73 sq M.predicted MDRD (S/P/Bld) [Vol rate/Area] [facility] Comment on above: Average GFR for 30-3 9 years old: 107 mL/min/1.73sq m Chronic Kidney Disease: <60 mL/min/1.73sq m Kidney failure: <15 mL/min/1.73sq m eGFR calculated using average adult body mass. Additional eGFR calculator available at: http://www.[employer]/multiple_crcl_2012.htm Glucose [Mass/Vol] 105 mg/dL High 70 - 99 mg/dL [facility] Interpretation and review of laboratory results Abnormal [facility] Potassium [Moles/Vol] 3.5 mmol/L Low 3.7 - 5.3 mmol/L [facility] Protein [Mass/Vol] 7.4 g/dL 6.4 - 8.3 g/dL [facility] Sodium [Moles/Vol] 138 mmol/L 135 - 144 mmol/L [facility] Urea nitrogen (BldV) [Mass/Vol] 12 mg/dL 6 - 20 mg/dL [facility] HCG Qualitative, Serumon hCG Qual Negative NEGATIVE [facility] Comment on above: Specimens with hCG l evels near the threshold of the test (25 mIU/mL) may give a negative or indeterminate result. In such cases, another test should be performed with a new specimen in 48-72 hours. If early is suspected clinically in this setting, correlation with quantitative serum b-hCG level is suggested. [facility] has confirmed the use of plasma for this test. This has not been cleared or approved by the U.S. Food and Drug Administration. The FDA has determined that such clearance is not necessary. [facility] HCG Screen, Bloodon 01-04-20 22 HCG Screen, Blood Negative Normal NEG [facility] Comment on above: Result Comment: Spec imens with hCG levels near the threshold of the test (25 mIU/mL) may give a negative or indeterminate result. In such cases, another test should be performed with a new specimen in 48-72 hours. If early is suspected clinically in this setting, correlation with quantitative serum b-hCG level is suggested. [facility] has confirmed the use of plasma for this test. This has not been cleared or approved by the U.S. Food and Drug Administration. The FDA has determined that such clearance is not necessary. Performed By: #### H CG, LIP, MG, CDP, CMPX #### [address] [address] Burn Center Nurse: Estevan Corcoran MD Lipaseon 01-03-2022 Lipase [Catalytic activity/Vol] 20 U/L Normal 13-60 [facility] Comment on above: Performed By: #### H CG, LIP, MG, CDP, CMPX #### [address] [id number] Burn Center Nurse: Estevan Corcoran MD Lipase [Catalytic activity/Vol] 20 U/L 13 - 60 U/L [facility] Magnesiumon 01-03-2022 Magnesium [Mass/Vol] 2.1 mg/dL Normal 1.6-2.6 [facility] Comment on above: Performed By: #### H CG, LIP, MG, CDP, CMPX #### [facility] [address] [place], [place] [id number] Burn Center Nurse: Estevan Corcoran MD Magnesium [Mass/Vol] 2.1 mg/dL 1.6 - 2 .6 mg/dL [facility] Microscopic Urinalysison Bacteria, UA MANY Abnormal None [facility] Epithelial Cells UA TOO NUMEROUS TO COUNT [facility] Interpretation and review of laboratory results Abnormal [facility] Other Observations UA Utilizing a urinal ysis as the only screening method to exclude a potential uropathogen can be unreliable in many patient populations. Rapid screening tests are less sensitive than culture and if UTI is a clinical possibility, culture should be considered despite a negative urinalysis. Abnormal NOT REQ. [facility] RBC, UA 2 TO 5 [facility] WBC, UA 2 TO 5 [facility] UA w/Reflex Cultureon 2021 Bilirubin, SemiQt,Ur Negative Normal NEG [facility] Comment on above: Performed By: #### U AX, UMICAO ####[address] [address] Lab Director: Estevan Corcoran MD Blood, Urine LARGE Abnormal NEG [facility] Comment on above: Performed By: #### U AX, UMICAO ####[address] [address] Lab Director: Estevan Corcoran MD Clarity (U) Cloudy Abnormal CLEAR [facility] Comment on above: Result Comment: FOUL ODOR Performed By: #### U AX, UMICAO ####[address] [address] Lab Director: Estevan Corcoran MD Color (U) Yellow Normal YEL [facility] Comment on above: Performed By: #### U AX, UMICAO ####[address] [address] Lab Director: Estevan Corcoran MD Glucose Ql (U) Negative Normal NEG [facility] Comment on above: Performed By: #### U AX, UMICAO ####[place] [address] Lab Director: Estevan Corcoran MD Ketones Ql (U) Negative Normal NEG [facility] Comment on above: Performed By: #### U AX, UMICAO ####[address] [address] Lab Director: Estevan Corcoran MD Leukocyte esterase Test strip Ql (U) Negative Normal NEG [facility] Comment on above: Performed By: #### U AX, UMICAO ####[address] [address] Lab Director: Estevan Corcoran MD Nitrite,Ur Negative Normal NEG [facility] Comment on above: Performed By: #### U AX, UMICAO ####[address] [address] Lab Director: Estevan Corcoran MD PH,Ur 6.0 Normal 5.0-8.0 [facility] Comment on above: Performed By: #### U AX, UMICAO ####[id number] [place], [place] [id number] Lab Director: Estevan Corcoran MD Protein Ql (U) Negative Normal NEG [facility] Comment on above: Performed By: #### U TERESA GILMANO ####[address] [id number] Lab Director: Estevan Corcoran MD Spec. [place],Ur 1.108 High 1.005-1.03 0 [facility] Comment on above: Result Comment: POST IV CONTRAST Performed By: #### U GEORGES GILMAN ####[place] [address] lab Director: Estevan Corcoran MD Urobilinogen,Ur Normal Normal NORM [facility] Comment on above: Performed By: #### U GEORGES GILMAN ####[place] [address] lab Director: Estevan Corcoran MD Urinalysis with Reflex to Cu ltureon 01-03-2022 Bilirubin Urine Negative NEGATIVE [employer] [facility] Travel Notes Color, UA Yellow Yellow [facility] Glucose, Ur Negative NEGATIVE [facility] Interpretation and review of laboratory results Abnormal [facility] Ketones Ql (U) Negative NEGATIVE [employer] [facility] Leukocyte esterase Test strip Ql (U) Negative NEGATIVE [employer] [facility] Nitrite, Urine Negative NEGATIVE [facility] pH, UA 6.0 5 - 8 [employer] Protein, UA Negative NEGATIVE [employer] [facility] Specific [place], UA 1.108 High 1.005 - 1.03 [facility] Comment on above: POST IV CONTRAST Turbidity UA Cloudy Abnormal Clear [facility] Comment on above: FOUL ODOR Urine Hgb LARGE Abnormal NEGATIVE [employer] [facility] Urobilinogen, Urine Normal Normal [facility] [employer] [facility] Urinalysis,Microon 10-03-202 2 Bacteria MANY Abnormal NONE [facility] Comment on above: Performed By: #### U AX, UMICAO ####[address] [address] Lab Director: Estevan Corcoran MD Epithelial cells LM Ql (Urine sed) TOO NUMEROUS TO COUNT Normal 0-5 [facility] Comment on above: Performed By: #### U AX, UMICAO ####[address] [address] Lab Director: Estevan Corcoran MD Other Observations Utilizing a urinalys is as the only screening method to exclude a potential Abnormal NREQ [facility] Comment on above: Result Comment: urop athogen can be unreliable in many patient populations. Rapid screening tests are less sensitive than culture and if UTI is a clinical possibility, culture should be considered despite a negative urinalysis. Performed By: #### U AX, UMICAO ####[address] [address] Lab Director: Estevan Corcoran MD Urine RBC's 2 TO 5 Normal 0-2 [facility] Comment on above: Performed By: #### U AX, UMICAO ####[address] [address] Lab Director: Estevan Corcoran MD Urine WBC's 2 TO 5 Normal 0-5 [facility] Comment on above: Performed By: #### U AX, UMICAO ####[address] [address] Lab Director: Estevan Corcoran MD CT LUMBAR SPINE WO CONTRASTo n 08-19-2021 Degenerative disc disease at L4-L5 and L5-S1. At L4-L5, there is a broad-based left paracentral left foraminal disc protrusion/herniation. At L5-S1, there is a partially calcified left paracentral disc herniation with slight inferior extension. The left-sided disc disease is of uncertain etiology in this patient with history of right leg pain. Follow-up MRI may be helpful. [facility] EXAMINATION: CT OF THE LUMBAR SPINE [...] a left foraminal and left paracentral disc protrusion/herniation (axial image [id number]). SOFT TISSUES/RETROPERITONEUM: No paraspinal mass is seen. [facility] Boyd Beatty MD - 08/19/2021 EXAMINATION: [...] a left foraminal and left paracentral disc protrusion/herniation (axial image [id number]). SOFT TISSUES/RETROPERITONEUM: No paraspinal mass is seen. IMPRESSION: Degenerative disc disease at L4-L5 and L5-S1. At L4-L5, there is a broad-based left paracentral left foraminal disc protrusion/herniation. At L5-S1, there is a partially calcified left paracentral disc herniation with slight inferior extension. The left-sided disc disease is of uncertain etiology in this patient with history of right leg pain. Follow-up MRI may be helpful. [employer] Work Phone: Radiology Study observation (narrative) [employer] [facility] Work Phone: CT LUMBAR SPINE WO CONTRASTO rdered By: Boyd Beatty on 08-19-2021 [employer] Work Phone: Vital Signs Date Time Vital Sign Value Performing Clinician Faci linh 06-12-2023 10:05-0400 Body height 165.1 cm Rohit Metzger MD Work Phone: [email or web address] 06-12-2023 10:05-0400 Body mass index (BMI) [Ratio] 38.94 kg/m2 Rohit Metzger MD Work Phone: [email or web address] 06-12-2023 10:05-0400 Body weight 106.14 kg Rohit Metzger MD Work Phone: [email or web address] 05-16-2023 13:48-0500 Body height 165.1 cm Rohit Metzger MD Work Phone: [email or web address] 05-16-2023 13:48-0500 Body mass index (BMI) [Ratio] 38.94 kg/m2 Rohit Metzger MD Work Phone: [email or web address] 05-16-2023 13:48-0500 Body weight 106.14 kg Rohit Metzger MD Work Phone: [email or web address] 01-02-2023 10:00-0400 Body height 162.56 cm Johnathon Winter Other [employer] Other 01-02-2023 10:00-0400 Body mass index (BMI) [Ratio] 42.91 kg/m2 Johnathon Winter Other [employer] Other 01-02-2023 10:00-0400 Body weight 113.4 kg Johnathon Winter Other [employer] Other 01-02-2023 10:00-0400 Diastolic blood pressure 82 mm[Hg] Johnathon Winter Other [employer] Other 01-02-2023 10:00-0400 Systolic blood pressure 126 mm[Hg] Johnathon Winter Other [employer] Other 2022 11:00-0400 Body height 162.56 cm Johnathon Winter Other [employer] Other 2022 11:00-0400 Body mass index (BMI) [Ratio] 44.56 kg/m2 Johnathon Winter Other [employer] Other 2022 11:00-0400 Body weight 117.75 kg Johnathon Winter Other [employer] Other 2022 11:00-0400 Diastolic blood pressure 101 mm[Hg] Johnathon Winter Other [employer] Other 2022 11:00-0400 SaO2% (BldA) [Mass fraction] 100 % Johnathon Winter Other [employer] Other 2022 11:00-0400 Systolic blood pressure 138 mm[Hg] Johnathon Winter Other [employer] Other 10-11-2022 18:45-0400 Body height 165.1 cm Roxie Garcia MD Work Phone: [employer] 10-11-2022 18:45-0400 Body mass index (BMI) [Ratio] 43.93 kg/m2 Roxie Garcia MD Work Phone: [employer] 10-11-2022 18:45-0400 Body temperature 99 [degF] Roxie Garcia MD Work Phone: [employer] 10-11-2022 18:45-0400 Body weight 119.75 kg Roxie Garcia MD Work Phone: [employer] 10-11-2022 18:45-0400 Diastolic blood pressure 108 mm[Hg] Roxie Garcia MD Work Phone: [employer] 10-11-2022 18:45-0400 Heart rate 87 /min Roxie Garcia MD Work Phone: [employer] 10-11-2022 18:45-0400 Respiratory rate 16 /min Roxie Garcia MD Work Phone: [employer] 10-11-2022 18:45-0400 SaO2% (BldA) [Mass fraction] 98 % Roxie Garcia MD Work Phone: [facility] [employer] 10-11-2022 18:45-0400 Systolic blood pressure 160 mm[Hg] Roxie Garcia MD Work Phone: [facility] [employer] 01-03-2022 13:54-0400 Diastolic blood pressure 95 mm[Hg] Teo Thomas DO [facility] [employer] 01-03-2022 13:54-0400 Heart rate 61 /min Teo Froylanfman DO [facility] [employer] 01-03-2022 13:54-0400 SaO2% (BldA) [Mass fraction] 100 % Teo Froylanfman DO [facility] [employer] 01-03-2022 13:54-0400 Systolic blood pressure 142 mm[Hg] Teo Morean DO [facility] 01-03-2022 11:46-0400 Body height 165.1 cm Teo Agueroan DO [facility] [employer] 01-03-2022 11:46-0400 Body mass index (BMI) [Ratio] 44.1 kg/m2 Teo Froylanfman DO [facility] [employer] 01-03-2022 11:46-0400 Body temperature 97.7 [degF] Teo Agueroan DO [facility] [employer] 01-03-2022 11:46-0400 Body weight 120.2 kg Teo Thomas [facility] 01-03-2022 11:46-0400 Respiratory rate 16 /min Teo Morean DO [facility] [employer] 08-19-2021 18:03-0400 Diastolic blood pressure 98 mm[Hg] Radha Sanders MD Work Phone: [facility] [employer] 08-19-2021 18:03-0400 Heart rate 92 /min Radha Sanders MD Work Phone: [facility] [employer] 08-19-2021 18:03-0400 Respiratory rate 16 /min Radha Sanders MD Work Phone: [facility] [employer] 08-19-2021 18:03-0400 SaO2% (BldA) [Mass fraction] 96 % Radha Sanders MD Work Phone: [facility] 08-19-2021 18:03-0400 Systolic blood pressure 145 mm[Hg] Radha Sanders MD Work Phone: [employer] 08-19-2021 16:28-0400 Body height 165.1 cm Radha Sanders MD Work Phone: [employer] 08-19-2021 16:28-0400 Body mass index (BMI) [Ratio] 45.76 kg/m2 Radha Sanders MD Work Phone: [employer] 08-19-2021 16:28-0400 Body temperature 98.6 [degF] Radha Sanders MD Work Phone: [employer] 08-19-2021 16:28-0400 Body weight 124.74 kg Radha Sanders MD Work Phone: [facility] Encounters Encounter Date Encounter Type Care Provider Facility Start: 06-26-2023 End: 06-27-2023 ambulatory Christiano Rivera MD Facility:[facility] Start: 06-15-2023 End: 06-15-2023 ambulatory SANJEEV TREADWELLO Not Available Start: 06-12-2023 End: 06-12-2023 ambulatory ROHIT SMITH [facility] Comment on above: Lumbar radiculopathy , chronic (Primary Dx); Herniated lumbar intervertebral disc Start: 06-12-2023 End: 06-12-2023 Office outpatient visit 10 minutes 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 Comment on above: Herniated lumbar int ervertebral disc (Primary Dx); Lumbar radiculopathy, chronic Start: 05-23-2023 End: 05-23-2023 ambulatory Tee Peterson Facility:[facility] Start: 05-23-2023 End: 05-23-2023 ambulatory MD Tee Peterson Work Phone: [facility] Work Phone: Start: 05-23-2023 End: 05-23-2023 Departed Referred MD Tee Peterson Work Phone: [facility] Start: 05-19-2023 End: 05-20-[address] [facility] Start: 05-16-2023 End: 05-16-2023 ambulatory ROHIT SMITH [facility] Start: 05-16-2023 End: 05-16-2023 Office outpatient new 30 minutes Rohit Smith MD Work Phone: [facility] Comment on above: 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); Finger injury, right, initial encounter Start: 05-15-2023 Orders Only Reny barlow [employer] SUPERVIS[employer]-SPOT W[employer]ER Work Phone: [facility] Comment on above: Herniated lumbar int ervertebral disc (Primary Dx) Start: 05-10-2023 End: 05-10-2023 ambulatory Johnathon Winter Other [facility] [employer] Other Start: 05-10-2023 Encounter by compute r loretta Winter [facility] Start: 05-10-2023 Non-patient / Non-visit MD Jones Work Phone: [facility] Work Phone: Start: 05-04-2023 End: 05-05-[address] [facility] Start: 05-04-2023 End: 05-04-2023 Office outpatient visit 10 minutes Oswaldo Dee NP Work Phone: [facility] Comment on above: 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); Pain in finger of right hand Start: 05-01-2023 End: 05-01-2023 ambulatory SANJEEV LOPEZ Not Available Start: 04-19-2023 End: 04-19-2023 ambulatory Scottie Lyn Other [employer] Other Start: 04-19-2023 Telephone encounter Scottie Lyn [facility] Start: 04-14-2023 End: 04-14-2023 Orders Only Serina Rodriguez RMA [facility] Comment on above: Back pain, unspecifi ed back location, unspecified back pain laterality, unspecified chronicity (Primary Dx) Start: 04-12-2023 End: 04-12-2023 ambulatory Johnathon Winter Other [employer] Other Start: 04-12-2023 Telephone encounter Johnathon Winter [facility] Start: 04-11-2023 End: 04-11-2023 ambulatory Johnathon Winter Other [employer] Other Start: 04-11-2023 Telephone encounter Johnathon Winter [facility] Start: 04-10-2023 End: 04-10-2023 ambulatory Johnathon Winter Other [employer] Other Start: 04-10-2023 Encounter by kriss Winter [facility] Start: 03-16-2023 End: 03-16-2023 ambulatory OSWALDO DEE Not Available Start: 03-09-2023 End: 03-09-2023 ambulatory Sanchez DICKEY Facility:[facility] Start: 01-30-2023 End: 01-30-2023 ambulatory Johnathon Winter Other [employer] Other Start: 01-30-2023 Telephone encounter Johnathon Winter [facility] Start: 01-02-2023 End: 01-02-2023 ambulatory Johnathon Winter Other [employer] Other Start: 01-02-2023 Office outpatient vi sit 15 minutes Johnathon Winter [facility] Start: 12-09-2022 End: 12-09-2022 ambulatory Johnathon Winter Other [employer] Other Start: 12-09-2022 Telephone encounter Johnathon Winter [facility] Start: 12-08-2022 End: 12-08-2022 ambulatory Johnathon Winter Other [employer] Other Start: 12-08-2022 Telephone encounter Johnathon Winter [facility] Start: 2022 End: 2022 ambulatory Johnathon Winter Other [employer] Other Start: 2022 Office outpatient ne w 30 minutes Johnathon Winter [facility] Start: 10-11-2022 End: 10-11-2022 Emergency department patient visit JOHNATHON WINTER [facility] Start: 10-11-2022 End: 10-11-2022 Emergency department patient visit Roxie Garcia MD Work Phone: [facility] Comment on above: Sprain of right ankl e, unspecified ligament, initial encounter (Primary Dx) Start: 07-11-2022 End: 07-11-[address] SANJEEV LOPEZ . Facility: Start: 04-29-2022 End: 04-30-[address] SANJEEV LOPEZ . Facility: Start: 04-08-2022 End: 04-08-2022 ambulatory Mary Díaz Facility:[facility] Start: 02-16-2022 End: 02-16-2022 Emergency department patient visit JOHNATHON WINTER [facility] Start: 01-03-2022 End: 01-03-2022 Emergency department patient visit JOHNATHON WINTER [facility] Start: 01-03-2022 End: 01-03-2022 Emergency department patient visit Teo Mina Aguerojoanne MUSTAFA [facility] Comment on above: Gastroenteritis (Neetu emil Dx) Start: 08-19-2021 End: 08-19-2021 Emergency department patient visit Radha Sanders MD Work Phone: [facility] Comment on above: Herniated lumbar int ervertebral disc (Primary Dx) Procedures Date Procedure Procedure Detail Performing Clinician Start: 06-12-2023 Follow-up visit Follow-up ROHIT CAMEJO V Start: 10-11-2022 Radex ankle complete minimum 3 views Bailee Lew [employer]PER[employer] - [employer] W[employer]ER Work Phone: Start: 01-03-2022 Urinalysis microscop ic only Zachariah Cristian [employer]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 Work Phone: Start: 01-03-2022 Urnls dip stick/tabl et rgnt auto w/o microscopy Zachariah Cristian [employer]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 Work Phone: Start: 01-03-2022 Ct abdomen & pelvis w/contrast material Zachariah Cristian [employer]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 Work Phone: Start: 01-03-2022 Assay of lipase Zachariah Cristian [employer]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 Work Phone: Start: 12-01-2021 Adult depression screening assessment Serina ALVARADO Start: 08-19-2021 Ct lumbar spine w/o contrast material Radha Sanders MD Work Phone: Plan of Treatment Date Care Activity Detail Author Start: 06-11-2024 Adult BMI Screening Adult BMI Screen ing [facility] Start: 06-11-2024 Tobacco Screening Tobacco Screening [facility] Start: 05-16-2024 Adult BMI Screening Adult BMI Screen ing [facility] Start: 05-16-2024 Tobacco Screening [facility] Start: 05-08-2024 Adult BMI Screening Adult BMI Screen ing [facility] Start: 05-08-2024 Tobacco Screening Tobacco Screening [facility] Start: 04-14-2024 Adult BMI Screening Adult BMI Screen ing [facility] Start: 04-14-2024 Tobacco Screening Tobacco Screening [facility] Start: 07-19-2023 End: 07-19-2023 Patient encounter procedure 07/19/2023 1:45 PM EDT Office Visit [facility] [address] [place] [address] Vishal Martin, DO [address] [place] [address] [facility] Start: 07-17-2023 End: 07-17-2023 Patient encounter procedure 07/17/2023 10:00 AM EDT Office Visit [facility] [address] [address] Sanjeev Lopez DO [address] [place] [address] [facility] Start: 06-12-2023 End: 06-12-2023 Patient encounter procedure 06/12/2023 10:05 AM EDT Office Visit [facility] [address] [facility] [address] [place] [phone] Rohit Smith MD [address] [place] [address] [facility] Start: 05-19-2023 End: 05-19-2023 Patient encounter procedure 05/19/2023 10:15 AM EST Appointment [facility] [address] [place] [address] [facility] Start: 05-16-2023 End: 05-16-2023 Patient encounter procedure 05/16/2023 1:45 PM EST Office Visit [facility] [address] [facility] [address] [place] [phone] Rohit Smith MD [address] [place] [address] [facility] Start: 05-08-2023 End: 02-05-2024 Patient encounter procedure 05/08/2023 1:30 PM EST [facility] [address] [place] [address] Reny No APRN-SPOT WASHER [address] [facility] [place] [place] [address] [facility] Start: 04-14-2023 End: 04-14-2024 XR Lumbar spine Views W flexion and W extension X-ray spine lumbar ap, lateral, flexion and extension only Imaging Routine Back pain, unspecified back location, unspecified back pain laterality, unspecified chronicity Expected: 04/14/2023, Expires: 04/14/2024 [facility] Work Phone: Comment on above: Expected: 04/14/2023 , Expires: 04/14/2024 Start: 12-02-2022 Influenza vaccination Influenza Vacc ine [facility] Start: 12-01-2022 Depression Screening Depression Scre ening [facility] Start: 11-01-2022 Influenza vaccination Flu vaccine (# 1) [facility] Start: 09-03-2022 Adult BMI Follow Up Plan Adult BMI Follow Up Plan [facility] Start: 12-02-2021 Influenza vaccination Flu vacc ine (Season Ended) [facility] Start: 11-01-2021 Influenza vaccination Flu vaccine (# 1) [facility] Start: 2017 Diabetes screen Diabetes screen [facility] Start: 2012 Screening for malignant neoplasm of cervix [facility] Start: 12-01-2003 Screening for malignant neoplasm of cervix Pap smear [facility] Start: 2001 DTaP,Tdap and Td Vaccines (1 - Tdap) DTaP,Tdap and Td Vaccines (1 - Tdap) [facility] Start: 2001 DTaP/Tdap/Td vaccine (1 - Tdap) DTaP/Tdap/Td vaccine (1 - Tdap) [facility] Start: 2000 Hepatitis C screening Hepatitis C sc reen [facility] Start: 1994 Depression Screen Depression Screen [facility] Start: 12-01-1987 COVID-19 Vaccine (1) COVID-19 Vaccin e (1) [facility] Start: 12-01-1983 Varicella vaccine (1 of 2 - 2-dose childhood series) Varicella vaccine (1 of 2 - 2-dose childhood series) [facility] Start: 06-01-1983 COVID-19 Vaccine (#1) COVID-19 Vacci ne (#1) [facility] Payers Date Payer Category Payer Self-pay 2022 Unknown [id number] 2022 Unknown [id number] 2020 Unknown [id number] 1.2.8 [id number] 1982 Unknown [id number] 2.16.84 0.1.763240.3.579.2.593 1982 Unknown [id number] 2.16.84 0.1.657971.3.579.2.593 1982 Unknown [id number] 2.16. 840.1.552719.3.579.2.175 1982 Unknown [id number] 2.16. 840.1.585462.3.579.2.175 1982 Unknown [id number] 2.16. 840.1.424634.3.579.2.175 1982 Unknown [id number] 2.16.8 40.1.858196.3.579.2.718 1982 Unknown [id number] 2.16.8 40.1.252956.3.579.2.718 1982 Unknown [id number] 2.16.8 40.1.291877.3.579.2.1286 1982 Unknown [id number] 2.16.8 40.1.535628.3.579.2.1286 1982 Unknown [id number] 2.16.8 40.1.804108.3.579.2.1286 1982 Unknown [id number] 2.16.8 40.1.232484.3.579.2.1286 1982 Unknown [id number] 2.16.8 40.1.814830.3.579.2.1286 1982 Unknown [id number] 2.16.84 0.1.823469.3.579.2.1286 1982 Unknown [id number] 2.16.84 0.1.021815.3.579.2.1259 1982 Unknown [id number] 2.16.84 0.1.313770.3.579.2.1259 1982 Unknown [id number] 2.16.84 0.1.105067.3.579.2.9 1982 Unknown [id number] 2.16.840 .1.701884.3.579.2.9 1982 Unknown [id number] 2.16. 840.1.127494.3.579.2.196 1959 Unknown [id number] Social History Date Type Detail Facility Start: 06-15-2015 End: 03-31-2022 Tobacco smoking status [facility] Never smoked tobacco [employer] Start: 06-15-2015 End: 03-31-2022 Tobacco use and exposure Smokeless tobacco non-user [employer] Phone: Start: 08-19-2021 End: 06-12-2023 Alcohol intake Current non-drinker of alcohol (finding) [employer] Phone: Start: 05-14-2020 End: 08-19-2021 Alcohol intake [facility] Start: 06-15-2015 History SDOH Alcohol Comment rarely [employer] Phone: Start: 1980 Sex Assigned At Not on file [employer] Phone: Start: 08-09-2021 End: 01-03-2022 Exposure to SARS-CoV-2 (event) Not sure [employer] Phone: History of tobacco use Passive smoker [facility] Work Phone: Start: 05-14-2020 End: 04-14-2023 Sex Assigned At [facility] Adolescent depressio n screening assessment 0 [facility] Start: 05-04-2023 Alcohol intake Ex-drinker (finding) [facility] Start: 10-09-2022 Alcohol Comment Alcohol: 1 or 2 drinks on typical day/monthly or less. Caffeine: 1-2 cups/day tea [facility] Start: 1980 Sex Assigned At Female [facility] Start: 09-21-2022 Gender identity Identifies as female gender (finding) [facility] Start: 09-21-2022 Sexual orientation Heterosexual (finding) [facility] Clinical Notes 08-19-2021 to 06-12-2023 Rohit Metzger MD - 06/12/2023 10:05 AM Russell Metzger MD - 05/16/2023 1:45 PM EST Note Date & Type Note Facility 06-12-2023 History of Present illness Narrative 06/12/2023 Chief Complaint: Chief Complaint Patient presents with Right Hand - Follow-up Rt ring mallet finge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 HPI Karuna Dumont is here for further follow up of a right ring mallet finger which occurred 4 months ago on 02/13/2023. She was treated by another provider and splinted for a total of 10 weeks prior to seeing me. I initiated a splint weaning protocol and home exercises. She states she has made good progress with her range of motion but still has quite a bit of pain in the dorsal aspect of the DIP joint. Examination: right upper extremity exam: Right ring finger examination. No erythema ecchymosis or swelling. She is able to hold the ring finger in full terminal extension. She makes a composite fist with pain. Present sensation to light touch with brisk capillary refill. External notes reviewed: None Review of test/study reports: no outside studies today My personal interpretation of tests: None Xrays done in office today: No imaging today Assessment: 1. Mallet deformity of right ring finger Plan: Cindy has made good progress with her range of motion. She is able make a full fist and has full extension in the ring finger. She still has pain along the dorsal aspect of the DIP joint. I told her this could take another few months to subside. Recommended qbrs-xwi-paxdhrz pain relievers as needed. She is content with where she is at right now with the finger. I will plan to see her back on an as-needed basis. All questions were answered. I, ROHIT SIMTH MD, personally performed the face to face evaluation on this patient. I discussed with the patient and confirmed the accuracy and completeness of the aforementioned history prepared by the [facility] practice provider, and I personally performed the clinical examination of the patient. I discussed the treatment plan with the patient. She has some continued soreness and pain around the area of injury but only a minor proximally 10-15 degree extensor lag and she makes a good composite fist. I recommended continued use and range of motion without further splinting. We reassured her that the soreness or pain would go away at some point hopefully within the next 2-3 months. Follow up in 3 months if she still has any severe symptoms. documented in this encounter [employer] [facility] 05-16-2023 History of Present illness Narrative [facility] [place] [facility] Chief Complaint: [...] a snap. She initially followed up with [facility] and was diagnosed with right ring [...] External notes reviewed: I reviewed notes from [facility] orthopaedics. Review of test/study reports: I reviewed an x-ray obtained of the right ring finger. There were no acute osseous abnormality such as fracture dislocation. My personal interpretation of tests: I personally viewed and interpreted X-rays from [facility] as above. Xrays done in office today: None. Assessment: 1. Mallet deformity of right ring finger - [facility] - [place], [place] 2. Finger injury, right, initial encounter - [facility] - [place], [place] Plan: I discussed treatment options with [...] with her flexion. documented in this encounter [facility] 05-10-2023 Evaluation note Encounter Date Diagnosis Assessment Notes May, Adult ADHD (attention deficit hyperactivity disorder) (ICD-10 - F90.9) [facility] Other 02-01-2024 History of Present illness Narrative* [...] finger for about 2 weeks. [place] [facility] [place] to having numbness in finger and unable to straighten it. Had XR at . On 03/13, pt went to [facility] and had another XR. Unable to get into hand specialist at [facility] until May 16. Continues to have soreness [...] crooked. PT is RT handed Prior [place] [facility] [place], XR, Splint, [facility], XR 03/13/23, Ice, Heat, IBU, [facility] ALLERGIES: No Known Allergies HOME MEDICATIONS: Current Outpatient Medications Medication Instructions amphetamine-dextroamphetamine (Adderall) 20 MG tablet 1 TABLET ORALLY MID DAY 30 DAYS cyclobenzaprine (Flexeril) 10 MG tablet PLEASE SEE ATTACHED FOR DETAILED DIRECTIONS fluconazole (DIFLUCAN) 100 mg, Oral, Daily nystatin (Mycostatin) 844495 UNIT/GM powder APPLY TO AFFECTED AREA TOPICALLY [...] normal Pronation: normal Supination: normal Muscle Strength Optometric Coordinator: 3/5 Other Erythema: absent Pulse: present Comments: [...] develop for requiring urgent evaluation. Oswaldo Dee SHELLFISH FARMING SUPERVISOR-SPOT WASHER documented [facility] [id number] Evaluation note* Encounter Date Diagnosis Assessment Notes Treatment Notes Treatment Clinical Notes Apr, Adult ADHD (attentio n deficit hyperactivity disorder) (ICD-10 - F90.9) [facility] Other 01-10-2024 Evaluation note* Encounter Date Diagnosis Assessment Notes Treatment Notes Treatment Clinical Notes Apr, Adult ADHD (attentio n deficit hyperactivity disorder) (ICD-10 - F90.9) [facility] Other 01-09-2024 Evaluation note* Encounter Date Diagnosis Assessment Notes Treatment Notes Treatment Clinical Notes Apr, Adult ADHD (attentio n deficit hyperactivity disorder) (ICD-10 - F90.9) [facility] Other 01-08-2024 Evaluation note* Encounter Date Diagnosis Assessment Notes Treatment Notes Treatment Clinical Notes Apr, Adult ADHD (attentio n deficit hyperactivity disorder) (ICD-10 - F90.9) [facility] Other 12-07-2023 NotePatient Education Materials Follows: Mallet [...] or lying down. General instructions ? Take pmuw-giu-sumyypp and prescription medicines only as told by [...] by your health care p (more contentnot included)...[id number] Evaluation note * Encounter Date Diagnosis Assessment Notes Treatment Notes Treatment Clinical Notes Jan, Adult ADHD (attentio n deficit hyperactivity disorder) (ICD-10 - F90.9) [facility] Other [id number] Evaluation note* Encounter Date Diagnosis Assessment Notes [...] in 3 months or sooner if needed. [facility] Other 09-08-2023 Evaluation note* Encounter Date Diagnosis Assessment Notes Treatment Notes Treatment Clinical Notes Dec, Adult ADHD (attentio n deficit hyperactivity disorder) (ICD-10 - F90.9) [facility] Other 09-07-2023 Evaluation note* Encounter Date Diagnosis Assessment Notes Treatment Notes Treatment Clinical Notes Dec, Adult ADHD (attentio n deficit hyperactivity disorder) (ICD-10 - F90.9) [facility] Other 08-30-2023 Evaluation note* Encounter Date Diagnosis [...] Cutaneous candidiasis (ICD-10 - B37.2) Refilled diflucan. [facility] Other 07-11-2023 Hospital Discharge instructions* Discharge Instructions* RIZWAN Dietz CNP - 10/11/2022 8:08 PM EDT [facility] a [facility] Use an ice pack or bag [...] through Care Everywhere. * RICE: General Info (Kazakh) * Ankle Sprain (Kazakh) [facility] NotePatient Education Materials Follows: Otitis Media, [...] Follow these instructions at home: ? Take zqkq-hwu-qbbxhdy and prescription medicines only as told by [...] provider. Document Revised: 06/28/2021 Document Reviewed: 06/28/2021 [employer] Patient Education ? 2021 [facility] Discharge instructions* Instructions* Radha Sanders MD - 08/19/2021 May use ice or heat, whichever feels better. May use [place] for pain. Prednisone as directed. Follow-up with [...] a follow up appointment THANK YOU!!! From [facility] and [facility] On behalf of the Emergency Department staff at [facility], I would like to thank you for giving us the opportunity to address your health care needs and concerns. We hope that during your visit, our service was delivered in a professional and caring manner. Please keep [facility] in mind as we walk with you [...] how we did during your visit at [email or web address] and let us know about your experience * Attachments The following attachments cannot be sent through Care Everywhere. * Herniated Disc (Kazakh) [facility] Work Phone: evaluation note* Diagnosis Herniated lumbar intervertebral disc- Primary Displacement of lumbar intervertebral disc without myelopathy documented in this encounter [facility] [employer] Phone: evaluation note* Diagnosis Gastroenteritis- Primary Other and unspecified noninfectious gastroenteritis and colitis documented in this encounter [facility] Work Phone: evaluation note* Diagnosis Sprain of right ankle, unspecified ligament, initial encounter- Primary documented in this encounter [facility] Wire GridEvaluation note* Diagnosis Back pain, unspecified back location, unspecified back pain laterality, unspecified chronicity- Primary documented in this encounter [facility] noteNo [facility]Nosaint [facility] Other Evaluation note* Diagnosis 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 Pain in finger of right hand Pain in soft tissues of limb documented in this encounter [facility] HealthcareEvaluation note* Diagnosis Herniated lumbar intervertebral disc- Primary Displacement of lumbar intervertebral disc without myelopathy [facility] Diagnosis 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 Finger injury, right, initial encounter documented in this encounter [facility]* Diagnosis Herniated lumbar intervertebral disc- Primary Displacement of lumbar intervertebral disc without myelopathy Lumbar radiculopathy, chronic [facility] assessment information [facility] Work Phone: Evaluation note* Diagnosis Lumbar radiculopathy, chronic- Primary Herniated lumbar intervertebral disc Displacement of lumbar intervertebral disc without myelopathy documented [facility]* Diagnosis 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 documented in this encounter [facility] SystemHistory general Narrative - Reported* Type Description Date Medical History PCOS/insulin resistant Medical History PCOS (polycystic ovarian syndrom e) Medical History Frequent headaches Medical History Gestational diabetes Medical History Prediabetes Surgical History cholecystectomy 2004 Surgical History appendectomy 2006 Surgical History Hospitalization History see surgical hx [place] [facility] Other Hospital Discharge instructions* Attachments The following attachments cannot be sent through Care Everywhere. * Gastroenteritis (Kazakh) documented in this encounter[facility] [employer] Work Phone: InstructionsNot on filedocumented in this encounter [facility] SystemInstructionsNot on filedocumented in this encounter [facility] SystemInstructionsNot on filedocumented in this encounter [facility] SystemInstructionsNot on filedocumented in this encounter [facility] SystemReason for referral (narrative)* Consultation (Routine) - Pending Review Specialty Diagnoses / Procedures Referred By Contact Referred To Contact Physical Medicine and Rehabilitation Diagnoses Herniated lumbar intervertebral disc Lumbar radiculopathy, chronic Reny No APRN-CNP [address] [place] [address] Vishal Martin DO [address] [place] [address] Referral ID Status Reason Start Date Expiration Date Visits Requested Visits Authorized [id number] Pending Review Specialty Services Required 05/24/2023 05/23/2024 1 1 [facility] (narrative)* Consultation (Routine) - Pending Review Specialty Diagnoses / Procedures Referred By Contac t Referred To Contact Pain Medicine Diagnoses Lumbar radiculopathy, chronic Herniated lumbar intervertebral disc Reny No APRN-CNP [address] [place] [address] Davis Silva MD [address] [place] [address] Referral ID Status Reason Start Date Expiration Date V isits Requested Visits Authorized [id number] Pending Review 06/12/2023 06/11/2024 1 1 [email or web address] Advance Directives No Advanced Directives Records FoundDocuments on File Type Date Recorded 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 ACP-Advance Directive ACP-Power of Ambulatory Care Coordinator Summary Purpose Family History No Family History Records Found Relationship Condition Age at Onset Recorded Date/T omkar grandparent Hypertension Unknown Unknown Alzheimer's dementia Unknown Additional Source Comments Reason for Visit (unrecogniz [...] site of digit, initial encounter Nicole Lockwood, SHELLFISH FARMING SUPERVISOR-SPOT WASHER [address] [place] [address] Rohit Smith MD [address] [address] Referral ID Status Reason Start Date Expiration Date Visits Requested Visits Authorized [id number] Pending Review Specialty Services Required 3 03/12/2024 1 1 Reason Comments 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 Ordered Prescriptions (unrec ognized section and content) [...] would not scan at bedside. Verified with [facility] prior to administration.) Scheduled Medication Order [...] Care Teams (unrecognized sec tion and content) Drier And Pulverizer Tender Relationship Specialty Start Date End Date Johnathon Winter MD PCP - General Family Medicine 03/08/16 Drier And Pulverizer Tender Relationship Specialty Start Date End Date Johnathon Winter MD PCP - General Family Medicine 03/08/16 Drier And Pulverizer Tender Relationship Specialty Start Date End Date Johnathon Winter MD PCP - General Family Medicine 03/08/16 Drier And Pulverizer Tender Relationship Specialty Start Date End Date Johnathon Winter MD [address] [place] [address] PCP - General 03/13/23 Drier And Pulverizer Tender Relationship Specialty Start Date End Date Johnathon Winter MD [address] [place] [phone] PCP - General Family Medicine 12/12/22 Drier And Pulverizer Tender Relationship Specialty Start Date End Date Johnathon Winter MD [address] [place] [address] PCP - General 03/13/23 Drier And Pulverizer Tender Relationship Specialty Start Date End Date Johnathon Winter MD [address] [place] [address] PCP - General 03/13/23 Drier And Pulverizer Tender Relationship Specialty Start Date End Date Johnathon Winter MD [address] [place] [address] PCP - General 03/13/23 Team Status: Active Member Role Status Dates Johnathon Winter MD Primary Care Provide r, Attending Provider Active Start: May 10, 2023 Team Status: Inactive Member Role Status Dates Tee Peterson MD Attending Provider Active Start: May 23, 2023 End: May 23, 2023 Drier And Pulverizer Tender Relationship Specialty Start Date End Date Johnathon Winter MD [address] [place] [address] PCP - General 03/13/23 INFORMATION SOURCE (unrecogn ized section and content) DATE CREATED AUTHOR 07/17/2022 [facility] DATE CREATED AUTHOR AUTHOR'S ORGANIZ ATION 10/12/2022 [facility] DATE CREATED AUTHOR AUTHOR'S ORGANIZ ATION 03/11/2023 [facility] DATE CREATED AUTHOR AUTHOR'S ORGANIZ ATION 06/01/2023 [facility] DATE CREATED AUTHOR AUTHOR'S ORGANIZ ATION 06/07/2023 [facility] DATE CREATED AUTHOR AUTHOR'S ORGANIZ ATION 06/12/2023 [facility] DATE CREATED AUTHOR AUTHOR'S ORGANIZ ATION 06/16/2023 [facility] EPIC DATE CREATED AUTHOR AUTHOR'S ORGANIZ ATION 07/06/2023 [facility] Goals (unrecognized section and content) Goals may be documented in a n alternate section FOR RECORDS PERTAINING TO PATIENTS WHO ARE [...] BE BASED ON THE PRIMARY CLINICAL RECORDS. [facility]. provides no warranty or guarantee of the accuracy or completeness of information in this document.
[2023-07-17 08:09] LABS: HCG Qualitative NEGATIVE (NEGATIVE)
[2023-07-17 08:16] VITALS: BP 144/94; PULSE 106; TEMP 37.2; O2SAT 100
[2023-07-17 08:33] LABS: Glucometer 87 mg/dL (74-106)
[2023-07-17 09:14] VITALS: BP 155/93; BP 171/92; PULSE 71; PULSE 89; O2SAT 97
[2023-07-17] MEDS: IOHEXOL 240 MG/ML - 10 ML VIAL INJ (09:14)
[2023-07-17] MEDS: 0.9 % SODIUM CHLORIDE 10 ML SYRINGE - SALINE FLUSH INJ (09:14)
[2023-07-17] MEDS: LIDOCAINE HCL 2% PF 100 MG/5 ML VIAL INJ (09:14)
[2023-07-17] MEDS: TRIAMCINOLONE ACETONIDE 40 MG/ML VIAL INJ (09:14)
[2023-07-17] MEDS: BUPIVACAINE HCL 0.25% PF 25 MG/10 ML VIAL INJ (09:14)
--- NOTE | 2023-07-17 09:16 | W.PM.PROCNOT ---
Date of procedure: 07/17/23 Pre-op diagnosis: Lumbar stenosis with neurogenic claudication Post-op diagnosis: same as pre-op Procedure: Procedure: Bilateral L5-S1 transforaminal epidural steroid injection Medications: Bupivacaine 0.25% 2cc, lidocaine 2% 1cc, kenalog 80mg The patient was seen and examined in the preoperative holding area.? Informed consent was obtained and placed on the chart.? Patient was brought to the medical procedure unit and placed in the prone position where a timeout was completed verifying the correct patient, procedure site, position, and planned special equipment using sterile aseptic technique.? Under direct fluoroscopic visualization a 25-gauge Quincke tipped spinal needle was advanced at level left L5-S1 to the designated neural foramen where contrast dye was injected to show adequate spread.? There was no evidence of vascular or adverse uptake.? Epidural spread was appreciated.? The above-mentioned injectate was then placed in a 1.5 mL aliquot preceded by negative aspiration.? The needle was removed. The same procedure, at the same level, was completed on the opposite side. ? Patient was taken to the postprocedural recovery area and monitored for an appropriate length of time before found suitable for discharge in the accompaniment of a responsible adult. Anesthesia: Local Surgeon: Christiano Rivera Pathology: none sent Condition: stable Disposition: no change
--- NOTE | 2023-07-17 09:23 | PC.NURSE ---
Upon returning from OR pt reports numbness to left leg and foot. Pt attempted to stand with 2 assist and was unable to ambulate safely. Pt placed in wheelchair and given water. Will monitor and attempt to ambulate after numbness subsides. Pt verbalized understanding.
--- NOTE | 2023-07-17 10:34 | PC.NURSE ---
Pt able to stand and ambulate without assistance. Pt reports that feeling has returned.
== END 2023-07-17 10:05 | disposition home or self-care (01) ==
PROVIDERS: PCP Family Medicine; Visit Provider Anesthesiology
DX: M48.062 Spinal stenosis, lumbar region with neurogenic claudication (principal); Z79.85 Long-term (current) use of injectable non-insulin antidiabetic drugs
CPT/HCPCS: 36415; 64483; 82948; 84703; Q9966

== ENCOUNTER 2023-07-19 20:43 | Outpatient (REF) | payer BC, SELFPAY ==
--- OUTSIDE RECORDS SUMMARY | 2023-07-19 20:49 | XMS_ITS | CCD ---
Author Organization [facility] Care Team Providers Care Pediatric Ophthalmologist Name Role Phone Johnathon Winter MD Primary [...] Unavailable Johnathon Winter MD Primary Care Provider JOHNATHON WINTER Primary Care [...] Unavailable Johnathon Winter MD Primary Care Provider MD Tee Peterson Attending Provider [phone] Tee Peterson Attending Unavailable Tee Peterson Admitting [...] Start: 2022 take 1 capsule by mo [facility] every twenty-four hours Vyvanse 30 MG 1 [...] once a week. 0 02/27/2023 Active nystatin [id number] unt/ml topical cream (9 sources) Polyene Antifungal Start: 05-01-2023 End: 04-30-2024 nystatin (Mycostatin) cream Indications: Follow-up encounter involving medication , Superficial skin infection Apply topically 2 (two) times a day 30 g 3 05/01/2023 04/30/2024 Active Start: 04-14-2023 nystatin (MYCO STATIN) powder Apply 1 Application topically in the morning and 1 Application before bedtime. 0 04/14/2023 Active Start: 04-14-2023 nystatin (Myco statin) [id number] UNIT/GM powder Indications: Skin irritation APPLY TO [...] days 20 tablet 0 08/19/2021 08/29/2021 Active Rgg-Mwm-OM-Fish Oil ([facility]) 0.4-113.5 MG CHEW (2 sources) Bfp-Qxl-VG-Fish Oil ([facility]) 0.4-113.5 MG CHEW Take [...] Test Name Value Interpretation Reference Range Facility [facility] 05-23-2023 L Specimen: [id number] Received: 05/24/23 Status: SOUT Req Num: [id number] Spec Type: Surgical Subm Dr: Tee Peterson MD Tissues: A BREAST CORE NO CALCS (LT BREAST) Procedures: HE/4, Gross/Micro L4, AE1-AE3/2 Age/ Patient Sex Location Account Attending Physician Karuna Dumont 42/F LABE[facility] [id number] Tee Peterson MD SPEC NUM: [id number] RECD: 05/24/23 STATUS: KASIE REQ NUM: [id number] GENEVA: 05/23/23- SUBM DR: Tee Peterson MD ENTERED: 05/24/[address] [facility] DR: Bert,Lab SPEC TYPE: Surgical DEPT: [facility]OLDAN [...] Time: 0.10 Formalin Fixation Time: 28.50 Specimen: [id number] Received: 05/24/23 Status: NATHAN Ruiz Num: [id number] Spec Type: Surgical Subm Dr: Tee Peterson MD Tissues: A BREAST CORE NO CALCS (LT BREAST) Procedures: HE/4, Gross/Micro L4, AE1-AE3/2 Patient: Karuna Dumont [id number] (Continued) Specimen: [id number] Received: 05/24/23 (Continued) Signed (signature on file) Tootie Jordan MD 05/31/23 2106 Specimen: [id number] Received: 05/24/23 Status: NATHAN Ruiz Num: [id number] Spec Type: Surgical Subm Dr: Tee Peterson MD Tissues: A BREAST CORE NO CALCS (LT BREAST) Procedures: HE/4, Gross/Micro L4, AE1-AE3/2 Patient: Karuna Dumont [id number] (Continued) Specimen: [id number] Received: 05/24/23 (Continued) CPT Codes 53344 Specimen: [id number] Received: 05/24/23-132 Status: NATHAN Ruiz Num: [id number] Spec Type: Surgical Subm Dr: Tee Peterson MD Tissues: A BREAST CORE NO CALCS (LT BREAST) Procedures: HE/4, Gross/Micro L4, AE1-AE3/2 Patient: Karuna Dumont Radha [id number] (Continued) Signed (signature on file) Tootie Jordan MD 05/31/232105 [facility] MR LUMBAR SPINE WO CONTon MR [...] Yung Perry on 05/23/2023 12:47 PM Normal [facility] Free testosterone measuremen t by LC-MS/MSon 05-10-2023 Testosterone Free [Mass/Vol] 0.6 pg/mL 0.0-4.2 [facility] Comment on above: Performed at: [address] [id number] Director: Theron Roblero PhD, Phone: [phone] at: [facility] [address] [id number] Director: Katelynn Macdonald MD, Phone: [phone] No Panel Informationon 05-10 C-Peptide 2.8 ng/mL 1.1-4.4 [facility] Comment on above: C-Peptide reference interval is for fasting patients.Performed at: [facility] [address] [id number] Director: Theron Roblero PhD, Phone: [phone] Dehydroepiandrosterone Sulfate 194.0 ug/dL 57.3-279.2 [facility] Free Cortisol, Dialysis, LCMS 0.787 ug/dL . [facility] Comment on above: These tests were dev eloped and their performancecharacteristics determined by [employer]. They have not beencleared or approved by the Food and Drug Administration.Reference Range:8 AM 0.10 - 1.204 PM 0.042 - 0.872Performed at: [facility] [id number] [place], [place] [id number] Director: Kal Archibald MD, Phone: [phone] Reverse Triiodothyronine (T3) 23.0 ng/dL 9.2-24.1 [facility] Comment on above: This test was develo ped and its performance characteristicsdetermined by [employer]. It has not been cleared orapproved by the Food and Drug Administration.Performed at: [facility] [address] [id number] Director: Katelynn Macdonald MD, Phone: [phone] Sex Hormone Binding Globulin 49.1 nmol/L 24.6-122.0 [facility] Comment on above: Performed at: - [facility] [address] [id number] Director: Theron Roblero PhD, Phone: [phone] Testosterone Level 22 ng/dL 8-60 [facility] Plasma serotonin measurement (mass/volume)on 05-10-2023 Serotonin (P) [Mass/Vol] 105 ng/mL 31-207 [facility] Comment on above: This test was develo ped and its performance characteristicsdetermined by [employer]. It has not been cleared orapproved by the Food and Drug Administration.Performed at: BN - [facility] [id number] Director: Katelynn Macdonald MD, Phone: [phone] Serum estrone measurementon 05-10-2023 E1 [Mass/Vol] 65 pg/mL 27-231 [facility] Comment on above: Range Adult (Premeno pausal) 27 - 231 Menstrual Cycle (1-10 days) 19 - 149 Menstrual Cycle (11-20 days) 32 - 176 Menstrual Cycle (21-30 days) 37 - 200Performed at: [facility] [id number] Director: Katelynn Macdonald MD, Phone: [phone] Serum or plasma estradiol (E 2) measurement (mass/volume)on 05-10-2023 E2 [Mass/Vol] 98.9 pg/mL . [facility] Comment on above: Adult Female Range F ollicular phase 12.5 - 166.0 Ovulation phase 85.8 - 498.0 Luteal phase 43.8 - 211.0 Postmenopausal <6.0 - 54.7 1st trimester 215.0 - >4300.0Roche ECLIA methodology Serum or plasma insulin mariam urement (units/volume)on 05-10-2023 Insulin Qn 7.0 u[iU]/mL 2.6-24.9 [facility] Comment on above: Performed at: [facility] [address] [id number] Director: Theron Roblero PhD, Phone: [phone] Serum or plasma progesterone measurement (mass/volume)on 05-10-2023 Progesterone [Mass/Vol] 0.1 ng/mL . [facility] Comment on above: Follicular phase 0.1 - 0.9 Luteal phase 1.8 - 23.9 Ovulation phase 0.1 - 12.0 First trimester 11.0 - 44.3 Second trimester 25.4 - 83.3 Third trimester 58.7 - 214.0 Postmenopausal 0.0 - 0.1Performed at: [facility] [address] [id number] Director: Theron Roblero PhD, Phone: [phone] Serum or plasma thyroperoxid ase antibody assay (units/volume)on 05-10-2023 TPO Ab Qn 11 [IU]/mL 0-34 [facility] Thyroglobulin [Mass/volume] in Serum or Plasmaon 05-10-2023 Thyroglobulin [Mass/Vol] <1.0 [IU]/mL 0.0-0.9 [facility] Comment on above: Thyroglobulin Antibo dy measured by LovliMethodologyPerformed at: - [facility] [id number] [place], [place] [id number] Director: Theron Roblero PhD, Phone: [phone] XR LUMBAR SPINE AP, LATERAL, FLEXION AND [...] Yung Perry on 05/05/2023 1:28 PM Normal [facility] ED Clinical Summaryon 2022 ED Clinical Summary [facility] ? Urgent Care [address] [place], [place] [address] Clinical Summary PERSON INFORMATION Name: KARUNA DUMONT Age: 42 Years Sex: FEMALE : 1980 MRN: Acct#: Visit Reason: UC - Finger/Thumb Injury; RT RING FINGER INJURY Arrival: 03/09/2023 10:15:32 Discharge: 03/09/2023 12:03:00 LOS: 000 01:48 Check In: 03/09/2023 10:15:32 Checkout: 03/09/2023 12:03:00 Address: [address] [facility] [address] PCP: Johnathon Winter MD PROVIDER INFORMATION Provider [...] With: Address: When: YUNG LAWS DO [address] [address] Within 3 to 5 days [...] verbalizes understanding of instructions given Comment: Normal [facility] ED Patient Summaryon 023 ED Patient Summary [facility] ? Urgent Care [address] [place] [id number] PATIENT DISCHARGE INSTRUCTIONS Patient Information Name: KARUNA DUMONT Age: 42 Years Date of : 1980 [facility]: [id number] Reason For Visit: UC - Finger/Thumb Injury; RT RING FINGER INJURY Arrival Time: 03/09/2023 10:15:32 Primary Care Physician: Johnathon Wniter MD Attending Physician: Sanchez John Comment: Patient Education With: Address: When: YUNG LAWS DO [address] [address] Within 3 to 5 days Comments: Diagnosis [...] or cold (more content not included)... Normal [facility]gent Care [place] 023 Urgent Care Record [facility] ? 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 It is important for you to follow up with a doctor, nurse practitioner, or physician?s assistant professor of criminal justice for ongoing care. If your symptoms become [...] can reach you if necessary. [facility] has provided you with a complete list of medications post discharge. Please inform your powder room attendant/provider of your visit and for further instruction [...] of your st (more content not included)... [facility] XR Finger Righton 03-09-2023 XR [...] MD 03/09/23 11:56 a Technologist: Vannesa DANGELO [facility] No Panel Informationon 10-11 No acute bony abnormalities are noted [facility] RIS CONSOLIDATED EXAMINATION: THREE XRAY [...] well maintained. Soft tissue swelling. Calcaneal spurs [facility] Miller Romo MD - 10/11/2022 EXAMINATION: [...] IMPRESSION: No acute bony abnormalities are noted [facility] Radiology Study observation (narrative) [facility] No Panel InformationOrdered By: Miller Romo on 10-11-2022 [facility] Work Phone: XR ANKLE RIGHT (MIN 3 [...] Miller Romo MD 10/11/22 Final result Normal [facility] XR FOOT RIGHT (MIN 3 VIEWS)o n [...] Miller Romo MD 10/11/22 Final result Normal [facility] PAP ACOG PANEL 2: 30 to 65on 07-16-2022 . . Normal [facility] Comment on above: Result Comment: Perf ormed at: WB Performed By: #### [id number] #### [facility] [address] [address] [address] Dang Kirby Age Gdln ACOG Testing 30-65 Normal [facility] Comment on above: Performed By: #### [id number] #### [facility] [address] [address] [address] Dang Kirby DIAGNOSIS: Comment Normal [facility] Comment on above: Result Comment: NEGA TIVE FOR INTRAEPITHELIAL LESION OR MALIGNANCY. THIS SPECIMEN WAS RESCREENED PART OF OUR WHOLESALER PROGRAM. Performed at: WB Performed By: #### 4 [id number] #### [facility] [address] [address] [address] Dang Kirby HPV Aptima Negative Normal Negative [facility] Comment on above: Result Comment: This nucleic acid amplification test detects fourteen high-risk HPV types (16,18,31,33,35,39,45,51,52,56,58,59,66,68) without differentiation. Performed at: =G Performed By: #### 4 [id number] #### [facility] [address] [address] [address] Dang Kirby HPV Genotype Reflex Comment Normal [facility] Comment on above: Result Comment: Crit eria not met, HPV Genotype not performed. Performed at: WB Performed By: #### 4 [id number] #### [facility] [address] [address] [address] Dang Kirby Methodology: Comment Normal [facility] Comment on above: Result Comment: This liquid based ThinPrep(R) pap test was screened with the use of an image guided system. Performed at: WB Performed By: #### 4 [id number] #### [facility] [address] [place] [address] Dr. Dang Kirby Note: Comment Normal [facility] Comment on above: Result Comment: The Pap smear is a screening test designed to aid in the detection of premalignant and malignant conditions of the uterine cervix. It is not a diagnostic procedure and should not be used as the sole means of detecting cervical cancer. Both false-positive and false-negative reports do occur. . Performed at: WB Performed By: #### 4 [id number] #### [facility] [address] [place] [address] Dr. Dang Kirby Performed by: Comment Normal [facility] Comment on above: Result Comment: Flavia Stanford, Wallpaper Printer (ASCP) Performed at: WB Performed By: #### 4 [id number] #### [facility] [address] [place] [address] Dr. Dang Kirby QC reviewed by: Comment Normal [facility] Comment on above: Result Comment: Valentino Victor, Wallpaper Printer Performed at: WB Performed By: #### 4 [id number] #### [facility] [address] [place] [address] Dr. Dang Kirby Specimen adequacy: Comment Normal [facility] Comment on above: Result Comment: Sati sfactory for evaluation. No endocervical component is identified. Performed at: WB Performed By: #### 4 [id number] #### [facility] [address] [place] [address] Dr. Dang Kirby MG MAMM DIAGNOSTIC 3D RAMA CA Don 04-29-2022 MG MAMM DIAGNOSTIC 3D RAMA CAD Patient: KARUNA DUMONTCelia Exam Date: 04/29/2022 : 1980 Gender:F Ordering : DR SANJEEV LOPEZ . Admission #: [id number] Family : Order #: [id number] CLICK HERE TO VIEW EXAM RADIOLOGY REPORT PROCEDURE: MAMMOGRAM DIAGNOSTIC 3D BILATERAL CAD, 04/29/2022, 10:05 ULTRASOUND BREAST RIGHT LIMITED, 04/29/2022, 11:04 COMPARISON: None. INDICATIONS: Pain of breast Calculator Name NCI Breast Cancer Risk Assessment Tool 5 Year Breast Cancer Risk Not Reported. Lifetime Breast Cancer Risk Not Reported. Personal Breast Cancer No Personal Ovarian Cancer No Treatments None Family Cancers None LOCATION: [facility] BREAST COMPOSITION: Scattered areas fibroglandular density. FINDINGS: [...] M.D. on 04/29/2022 at 14:55 Normal [facility] US BREAST RIGHT LIMITEDon US BREAST RIGHT LIMITED Patient: KARUNA DUMONTCelia Exam Date: 04/29/2022 : 1980 Gender:F Ordering : DR SANJEEV LOPEZ . Admission #: [id number] Family : Order #: [id number] CLICK HERE TO VIEW EXAM RADIOLOGY REPORT PROCEDURE: MAMMOGRAM DIAGNOSTIC 3D BILATERAL CAD, 04/29/2022, 10:05 ULTRASOUND BREAST RIGHT LIMITED, 04/29/2022, 11:04 COMPARISON: None. INDICATIONS: Pain of breast Calculator Name NCI Breast Cancer Risk Assessment Tool 5 Year Breast Cancer Risk Not Reported. Lifetime Breast Cancer Risk Not Reported. Personal Breast Cancer No Personal Ovarian Cancer No Treatments None Family Cancers None LOCATION: [facility] BREAST COMPOSITION: Scattered areas fibroglandular density. FINDINGS: [...] M.D. on 04/29/2022 at 14:55 Normal [facility] Coding Summaryon 04-18-2022 Coding Summary HTMLBase 64 NtnliggsUXr4eYd+PGhlYWQ+ MA6NKEHkP27efODapP5QD5vO YA2MKFSBAHOFLS0YFI3slKY1 DDunF7VtshSl ZswyeGOtWA72YWq6MCQ4yPmt FNddzJ0qpJCuS5l0BfXgEQ72 vH29GHixYPGiWyP8OsCmqitc bWFy G6oiNuFnnVJjHdr+PHRhYmxl IHdpZHRoPScxMDAlJyBzdHls EP1fFl7sWYEeCNNdiYuucFFm OiBj j5mcLGLiMOiwWT8coCwzD5Bc eAJ8CCEzg9k5Vw80bMN+PHRk OQK4nYhjIUhnc877EuFps7fn IDM3 gJXpNThsTIS5V20eb1O0GZYc WGRvQHZ5xBX7iU0xcIlfdkgb W7LlsHSjDlC7EMA8jFGroE5a bGln hqddjR8sNmh+Y47AKH7AYLAV JN9NGko7Z9GgImvaaQB+PC90 NFKwKQ93nZWxrFHcz1advLc1 JzEw SEAsTWP0tTkqPMzse4DbTAAb V15icDOds7W2CKFaiBfmrPZx WkBhhFI6fY6wTApgbrhvz9va dzsn Zyuyw1iyxf26sO97V70lNOpb UUQqYOW5VVUbHPOpyUlkvx3q tH5bAk8+DWrqk7fdm8ienOi5 IjIw IUDvhbZgzUjeUOS8l9MuYc09 K4TonUken0DoSup1in37fADy k2F7dVH8AXnvNTOgvR7jSTzf ZnQ6 JROsErGuzD22lANgDVtuDc8o pJourUedTQ3kUNWtyejdGUUs dJ0xYSWknZWsqErrEE1gDNPf bjtm p752KoQoTSY2QZBzzWVlG6Jr eS0xVjCaFNTmUWJaB7WuhDAb QSnxP665XEvgAsO9MTSfvzKr Y2Fs GTVerHixUiD0s5N3Lj9Jy9It bdcqZTR7QIfoMAVsBsG8WpBw AfH2U1IsMaj0MCLouFylWS2o J3Bh TAWdftjmvsjfvJN8KTCqVAFb hY57kNUuYYooYr7me9Y4n447 VUZjPGPnpK91Tm9ndDbqEWMb dCBU oC2wfbgaf5kzwafeUbIrUIOd DPk5CWr9YAVzlKjzHxXlTYW6 TsX2QGJ6mNDwgJ4tuTfntmeg dG9w Oyc+H66nbT7aRTN1YIN9kqqa HXTkkvVqYT83TN58L6CwAcir dGFibGU+GRBrjvPlqGvqBZ5i YmFj q2keh8YyITsnA6QcLPOsYSlv Iyn8DEJdXYA5nVA4gO0vACPv RSckr7S9iRJ7F9PoviKgby1m b2xs MYEpDJsfZ47dzRVpj4M9CCIj nQD1RVWvhQwyHlWcqK91Uzh+ TGGslTtjp0RsVeiju2yho9pg dGg9 FzZxYKAbykRvyEytOEQ7l5Kj Ka44Z62uYHflQZUaTAReAONy LERhqXvtru8cdG4pLy6+PGNv bCB3 iLZ7fG2kDXCsKzW3CLvrD578 HdNedQTuAtmul9oiv2vxqEp4 TlAjWBYadwIaqKloSYA4q6Qy Lz48 M77wSQesSSQbLCOgODZpDRMm cZjrrs3uzL7xBc8+EH1tt9we se83jR60hNW+PELgJBR2yVkx PSdw WRBupJ1aBMrjWeD2SOSuPdDo uD18fUGxZXwbGz1qeDfwdRsa TO8sAJLnsdskk085MrRkp8jq IDEw sHTxBJmzVXD3X01dt4C4SPFq JEMlZVG6jXN6rW8rxHqniyye bGVmdDsgdmVydGljYWwtYWxp Z246 IHRvcDsnPlBhdGllbnQgTmFt PFj9O0UgXhy5UXUgdIdmIM9v lOCfSYftXn3voFkjfVcdAX5c NTBp vdpka589TsQum7orXNYtyVWj KJhnVFN3Q33fh1X9VHPyDGYm JJZ2lWZ4xO3pxHgqwjveyQJt dDsg cjGsjEtuQMonXPddZ923FWZw pQcvHsNpdpDuHPCunFA9JV62 MR94gTSzh6A7jZV9L8IuBDZd bmct uquuzKW6UGTeIQGwlB98Un1v lKbcRd1oAZIaTBI9ANBmvRLc Z5XgxE0nYmGvINWjZSZeF1Vo eHQt SBpqI106FAbeQcY9TLNbvkWx Y1PgVFYrxWeqOvA2g5W1Jh1V L4S5PW23PA96cQAtr4W1qBR9 J3Bh LYTxisgdbrzvwIJ8AIWfOEVk vV57Kg1lrIjoNy5aLEOmORN0 ZOAdmEAuP1MuwB5kRlTxGQGe MDAw M5WuhHKvYAplX135ORztFzD3 EOCgyjAuE0NvNGSyuXrnRqP3 p1W8Pj9FRSq3RD44BA99qAVw c3R5 eLA6D3NpRJMoodcfhqtmzTX5 WEJlHOKskF24Cy5akOjjHr7v OPVxZSY2NLJbmATmO0IeaN3k OiAj NLCjGRLyB1JuzLFrPPepQ747 UTgyPaW5TDTqysPqN2ZeOELo qAuhKcI4a4B7Mg6GXXZwXO14 IFR5 aWE6ZR90IA42Z7LdDvtxdOAl bGU+PHRhYmxlIHdpZHRoPScx YFYsEtYshQidAY2rWh6gZSYp LWNv rLhemYVdJkAic8qbGJOoCHso OZ5qxAofB7NgnEY1LCPaq0d0 Rn43T15dL8IagUW+PGNvbCB3 aWR0 hK9bMhFrMpF5DDfeE051VtVp uIYaQzrle1lyi5jkoVn9ArZ6 SLPjzcEcpJczNYU6i3TtSw98 Y29s IHdpZHRoPSIxNSUiIHZhbGln qb2beH9bBy0+DOIprVD1bXS1 mT2fTpJwQwR7NKvuU716AvRi cCIv Mjntf7rgb9tyxWc9CjBpMITo sbAroAxxGTA8w7XsPc74Y1Tu rDtkj9FlZiq1qw66mEUtv9B5 bGU9 K3SpOXMaugezbSQxhLaxTX2s QBBedmviNEDlhX3cRSPnF8z4 IjFfAhB2UCcdY0ShecA8DFGl cHQg RHbjNLP4B37ls2X9BRQmICVc THM2rLM1gY6rqIdfrfjdrYAt wTiaoxQccNnrMHazKLcqL966 IHRv mFdyNOEqdS1wAZQbuYWkcSzz YX1aZEKoogbaYmdWPQZVASrx PX8LGfCJYCQEB724G7YkAof3 ZCBz lFwdQZ7wtIYdPJpjJo1hpDet mXqbNW3iKULqkmxmQUSdyV5q ACLerGFjfUwhCD3cPWTttkyl b250 BeVrQIW8EOHseQYoZ4XsgC3y XaZyMSJzLUCpR0QgtQQiYLyl L018XVjeYnR5XVOlzbIxG0Vt LWFs pUjtDnX5g6C6Ut0zVE8gYM3i OEjgYO67IR39iHVmm4U9fTA1 K4BrRMLutnrzwrvpqHE0CJUe MDUw aZ90gGMaTYdiLo3xd0W2r627 FHBhHAEwdP42Co5awSroIRLw lKIEpT7djnrxi6ekxbpfSwZv MDAw KBw2ZLt3ZCLguOcvOlPjGPD4 EqR7MUO4fFSjgL6phHdvkvpz eO2rYvq+ScsnJFSbryO3C1La Pjx0 ZCWgdNdmMM2tmIBcTNaaDy1u xHiuhSroUL2eICUwppnyCJRe eX6xBHRvbYSxoXfpCO1fFUXn bjtm m148QjBqQQY8XUJhuSKtX6Wz fA0wXbDgNFKcFUKeX8PxuEAw MCnpG693MDtgFdE3RCXaniVl Y2Fs WZPefFsrFdP6n2Q0In9OYQ4R NHD9D9RwMbi9UGDfpZgbAQ9k iEZuUQryJa6abWlkhYpyAI6h NTBp wtqpNSAchB8zRRPzlNWfaByd KI1pOCSfsonrn172NzTkRIT7 VJGfhEMnV0NgfQ1rAvEyMFKf MDAw W8JykOPeVFvlF099HHmgQlB8 THToxfCsB7ZwLCAssUajHpU4 u8P5Eu4JZZdmvIS+YH91cz01 L3Rh ZjgoLdc7QKAkXOJ7lYT8cB5q VVSnVRuto8L3kST2D0ItegXj ok1td1dqNPGpDFxzZ88mvIUs c2U7 VDTbuCJ0KWKyhModZeTggS55 Oyc+TUKmuMauo0KeSltkj9wh z1dvjNg9IaPtCHZexsAdqLuy PSJ0 s1AaZt15S50yDOsxDKDhQQQz UQLqKQIwpMbubp5tjL5bPd7+ ZCGrwLB8xDI8nH7nQdTnSyU7 YWxp W442KlJldOWbFpbom9bsw5id tOv1DfNaAMKbydUbaDhiBIJ7 p2WxLr22P6UnlZhbd3BzHdf1 cj48 sXZpi7O2vGJ5A4HnKLYqrhkv wAGhlHjxLC5sBCXwldovGNIt uY0sNTUdB2k9VyCdMoE6PTev O2Zv inL8THLrzMDlXMAeoSEFrT4l idwvr0wosbxyGkZqKYKtKXt4 AGh2OHFduDgiUqRjKAD0EhP9 ZXJ0 kAGsfD3ajNgbrkmjoI8oTfu+ ZQb5r7yjkZWvCP1jeJJ7OT28 UR84rOYsb6B0aCU3Z2JvTPPr bmct zamntAD7XKRmHYCfaJ70El6u vVkdMg5pFBImKJE2ULOklICq H9DqzE4mVzIpCDFaMHGlA1Ux eHQt ZWubK134AEggAaN2ALAnbqFv Y5EtXGAhxKleRyN1u9V4Wp2V IG77VL01ZE82lAJaw7M7mJS2 J3Bh OIMgpsbkzwnugIJ5FCOlTROs tB13Fg6ntLheVs4yRERsPFJ9 RGCrbGUhV8GdgN4bGlEwXTMc MDAw E3WypQCoPDwdC423TYayPoA8 MVBzwpAfH8UnXTDyrXdjIfZ5 t7C5Uz7FLf36HT93IL71lIYh c3R5 tZR3F4CqDJVnrbqlayjweKZ7 AJOtJJBosL13Es9dbKchXf3v ZLAvVAX1NWLgaMZnB0PpwV1v OiAj DVFtFKGsS4BxsKOzVJguW023 FJeqHuH4ETWaimTxF7TlHCLo gGrsGzJ4p1I1Ad9XZOrvdeo3 L3Rk PjwvdHI+PF04HGWlEH73jHAb pENjp6qjtRo6LgOuPQWuIDD5 jBaqCNwcp8XrRRRwR22npWKh c2U6 IGN (more content not included)... Normal [facility] ED Clinical Summaryon 2022 ED Clinical Summary [facility] ? Urgent Care [address] [place], [place] [id number] Clinical Summary PERSON INFORMATION Name: KARUNA DUMONT Age: 41 Years Sex: FEMALE : 1980 MRN: Acct#: Visit Reason: UC - Headache; BI LAT EAR PAIN, DIZZINESS, HEADACHE, CONGESTION Arrival: 04/08/2022 16:57:05 Discharge: 04/08/2022 19:05:00 LOS: 000 02:08 Check In: 04/08/2022 16:57:05 Checkout: 04/08/2022 19:05:00 Address: [address] [facility] [address] PCP: Mary Díaz DO PROVIDER INFORMATION Provider [...] With: Address: When: Mary Díaz [address] [place] [address] Business (1) Comments: Patient seen [...] verbalizes understanding of instructions given Comment: Normal [facility] ED Patient Summaryon 023 ED Patient Summary [facility] ? Urgent Care [address] [place] [address] [id number] PATIENT DISCHARGE INSTRUCTIONS Patient Information Name: KARUNA DUMONT Age: 41 Years Date of : 1980 Reason For Visit: UC - Headache; BI LAT EAR PAIN, DIZZINESS, HEADACHE, CONGESTION Arrival Time: 04/08/2022 16:57:05 Primary Care Physician: Mary Díaz DO Attending Physician: Ad Ortega Comment: Patient Education With: Address: When: Mary Díaz [address] [place], [place] [id number] Business (1) Comments: Patient seen in urgent [...] Follow these instructions at home: ? Take vepe-ifg-fkjzmzf and prescription medicines only as told by [...] ear, usual (more content not included)... Normal [facility] Urgent Care Note- Provideron 04-08-2022 Urgent Care [...] 10. Impression and Plan Diagnosis Mild nausea (LAB24-CQ R11.0, Discharge, Medical) Inner ear dysfunction (VOE20-LC H83.90, Discharge, Medical) Headache, classical migraine (QZE36-NN G43.109, Discharge, Medical) Acute otitis media, bilateral (FRF30-DO H66.93, Discharge, Medical) Plan Condition: Stable. Disposition: [...] tab(s), 0 (more content not included)... Normal [facility] [place] 023 Urgent Care Record [facility] ? Urgent Care [address] [id number] PATIENT DISCHARGE INSTRUCTIONS Patient Information Name: KARUNA DUMONT Age: 41 Years Date of : 1980 Reason For Visit: UC - Headache; BI LAT EAR PAIN, DIZZINESS, HEADACHE, CONGESTION Arrival Time: 04/08/2022 16:57:05 Primary Care Physician: Mary Díaz DO Attending Physician: Ad Orteag Comment: Visit Diagnosis: Diagnoses This Visit Acute otitis media, bilateral (H66.93) Headache, classical migraine (G43.109) Inner ear dysfunction (H83.90) Mild nausea (R11.0) UC - Headache ([id number]) If you received any narcotics, sedation, or [...] With: Address: When: Mary Díaz [address] [place] [address] Business (1) Comments: Patient seen [...] treatment you received today in the [facility] were for an urgent problem and are not intended as complete care. It is important for you to follow up with a doctor, nurse practitioner, or physician?s assistant professor of criminal justice for ongoing care. If your symptoms become [...] can reach you if necessary. [facility] has provided you with a complete list of medications post discharge. Please inform your powder room attendant/provider of your visit and for further instruction on these medications. Any specific questions regarding your chronic medications and dosages should be discussed with your primary care physician(s) and/or pharmacist. New Medications [id number], [place] [id number], [phone] amoxicillin-clavulanate (!-Augmentin 875 mg-125 mg oral tablet) [...] with signs (more content not included)... Normal [facility] CT CERVICAL SPINE WO CONTRAS Ton 02-16-2022 [...] Oziel Fox MD 02/16/22 Final result Normal [facility] XR CLAVICLE LEFTon 2 XR CLAVICLE LEFT [...] Miller Romo MD 02/16/22 Final result Normal [facility] XR SHOULDER LEFT (MIN 2 VIEW S)on [...] Emil Flores MD 02/16/22 Final result Normal [facility] CBC with Auto Differentialon 01-03-2022 Absolute Eos # 0.10 [facility] Absolute Lymph # 1.60 [facility] Absolute [place] # 0.40 [facility] Basophils (Bld) [#/Vol] 0.00 10*3/uL [facility] Basophils/100 WBC (Bld) 1 % 0 - 2 % B [facility] Eosinophils/100 WBC (Bld) 2 % 1 - 4 % [facility] Hematocrit (Bld) [Volume fraction] 46.0 % 36 - 46 % [facility] Hemoglobin (Bld) [Mass/Vol] 15.4 g/dL 12 - 16 g/dL [facility] Interpretation and review of laboratory results Abnormal [facility] Lymphocytes/100 WBC (Bld) 29 % 24 - 44 % [facility] MCH (RBC) [Entitic mass] 28.6 pg 26 - 34 pg [facility] MCHC (RBC) [Mass/Vol] 33.4 g/dL 31 - 3 7 g/dL [facility] MCV (RBC) [Entitic vol] 85.9 fL 80 - 100 fL [facility] Monocytes/100 WBC (Bld) 8 % 2 - 11 % B ON [facility] Platelet distribution width (Bld) [Ratio] 14.1 % 12.5 - 15.4 % [facility] Platelet mean volume (Bld) [Entitic vol] 7.6 fL 6 - 12 fL [facility] Platelets (Bld) [#/Vol] 277 10*3/uL [facility] RBC (Bld) [#/Vol] 5.36 10*6/uL High 4 - 5.2 m/uL [facility] Segmented neutrophils/100 WBC (Bld) 60 % 36 - 66 % [facility] Segs Absolute 3.40 [facility] WBC (Bld) [#/Vol] 5.6 10*3/uL [facility] CBC with Diffon 01-03-2022 Abs. Basophil 0.00 k/uL Normal 0.0-0.2 [facility] Comment on above: Performed By: #### H CG, LIP, MG, CDP, CMPX #### [place] [address] Mixer Driver: Estevan Corcoran MD Abs.Neutrophil (Seg) 3.40 k/uL Normal 1.8-7.7 [facility] Comment on above: Performed By: #### H CG, LIP, MG, CDP, CMPX #### [address] [address] Mixer Driver: Estevan Corcoran MD Basophils/100 WBC (Bld) 1 % Normal 0-2 M [facility] Comment on above: Performed By: #### H CG, LIP, MG, CDP, CMPX #### [place] [id number] Mixer Driver: Estevan Corcoran MD Eosinophils (Bld) [#/Vol] 0.10 10*3/uL Normal 0.0-0.4 [facility] Comment on above: Performed By: #### H CG, LIP, MG, CDP, CMPX #### [facility] [id number] [place], [place] [id number] Mixer Driver: Estevan Corcoran MD Eosinophils/100 WBC (Bld) 2 % Normal 1-4 [facility] Comment on above: Performed By: #### H CG, LIP, MG, CDP, CMPX #### [place] [address] Mixer Driver: Estevan Corcoran MD Erythrocyte distribution width (RBC) [Ratio] 14.1 % Normal 12.5-15.4 [facility] Comment on above: Performed By: #### H CG, LIP, MG, CDP, CMPX #### [place] [address] Mixer Driver: Estevan Corcoran MD Hematocrit (Bld) [Volume fraction] 46.0 % Normal 36-46 [facility] Comment on above: Performed By: #### H CG, LIP, MG, CDP, CMPX #### [place] [address] Mixer Driver: Estevan Corcoran MD Hemoglobin (Bld) [Mass/Vol] 15.4 g/dL Normal 12.0-16.0 [facility] Comment on above: Performed By: #### H CG, LIP, MG, CDP, CMPX #### [place] [id number] Mixer Driver: Estevan Corcoran MD Lymphocytes (Bld) [#/Vol] 1.60 10*3/uL Normal 1.0-4.8 [facility] Comment on above: Performed By: #### H CG, LIP, MG, CDP, CMPX #### [place] [address] Mixer Driver: Estevan Corcoran MD Lymphocytes/100 WBC (Bld) 29 % Normal 24-44 [facility] Comment on above: Performed By: #### H CG, LIP, MG, CDP, CMPX #### [place] [address] Mixer Driver: Estevan Corcoran MD MCH (RBC) [Entitic mass] 28.6 pg Normal 26-34 [facility] Comment on above: Performed By: #### H CG, LIP, MG, CDP, CMPX #### [place] [address] Mixer Driver: Estevan Corcoran MD MCHC (RBC) [Mass/Vol] 33.4 g/dL Normal 31-37 [facility] Comment on above: Performed By: #### H CG, LIP, MG, CDP, CMPX #### [place] [address] Mixer Driver: Estevan Corcoran MD MCV (RBC) [Entitic vol] 85.9 fL Normal 80-100 M [facility] Comment on above: Performed By: #### H CG, LIP, MG, CDP, CMPX #### [place] [address] Mixer Driver: Estevan Corcoran MD Monocytes (Bld) [#/Vol] 0.40 10*3/uL Normal 0.1-1.2 [facility] Comment on above: Performed By: #### H CG, LIP, MG, CDP, CMPX #### [address] [place] [id number] Mixer Driver: Estevan Corcoran MD Monocytes/100 WBC (Bld) 8 % Normal 2-11 M [facility] Comment on above: Performed By: #### H CG, LIP, MG, CDP, CMPX #### [place] [address] Mixer Driver: Estevan Corcoran MD Neutrophil (Seg) 60 % Normal 36-[address] [facility] Comment on above: Performed By: #### H CG, LIP, MG, CDP, CMPX #### [place] [address] Mixer Driver: Estevan Corcoran MD Platelet mean volume (Bld) [Entitic vol] 7.6 fL Normal 6.0-12.0 [facility] Comment on above: Performed By: #### H CG, LIP, MG, CDP, CMPX #### [place] [address] Mixer Driver: Estevan Corcoran MD Platelets (Bld) [#/Vol] 277 10*3/uL Normal 140-450 [facility] Comment on above: Performed By: #### H CG, LIP, MG, CDP, CMPX #### [place] [address] Mixer Driver: Estevan Corcoran MD RBC (Bld) [#/Vol] 5.36 10*6/uL High 4.0-5.2 [facility] Comment on above: Performed By: #### H CG, LIP, MG, CDP, CMPX #### [place] [address] Mixer Driver: Estevan Corcoran MD WBC (Bld) [#/Vol] 5.6 10*3/uL Normal 3.5-11.0 [facility] Comment on above: Performed By: #### H CG, LIP, MG, CDP, CMPX #### [facility] [address] [place] [address] Mixer Driver: Estevan Corcoran MD CT ABDOMEN PELVIS W [...] Papito Mishra MD 01/03/22 Final result Normal [facility] CT ABDOMEN PELVIS W IV CONTR AST [...] L5-S1. Mild levoscoliosis of the lumbar spine. [facility] RIS CONSOLIDATED Papito Mishra MD [...] evidence for small bowel obstruction. GIANA PEREZ [employer] Work Phone: Radiology Study observation (narrative) GIANA MCKINLEY [employer] Phone: CT ABDOMEN PELVIS W IV CONTR AST Additional Contrast? NoneOrdered By: Papito Mishra on 01-03-2022 GIANA PEREZ [employer] Phone: Comp Metabolic Pr/rfx MGon 1 ALT [Catalytic activity/Vol] 28 U/L Normal 5-33 [facility] Comment on above: Performed By: #### H CG, LIP, MG, CDP, CMPX #### [facility] [address] [place] [address] Mixer Driver: Estevan Corcoran MD (cont.) [facility] Comment on above: Result Comment: Aver age GFR for 30-39 years old: 107 mL/min/1.73sq m Chronic Kidney Disease: <60 mL/min/1.73sq m Kidney failure: <15 mL/min/1.73sq m eGFR calculated using average adult body mass. Additional eGFR calculator available at: http://www.[employer]/multiple_crcl_2012.htm Performed By: #### H CG, LIP, MG, CDP, CMPX #### [facility] [address] [place] [address] Mixer Driver: Estevan Corcoran MD Albumin [Mass/Vol] 4.3 g/dL Normal 3.5-5.2 [facility] Comment on above: Performed By: #### H CG, LIP, MG, CDP, CMPX #### [place] [address] Mixer Driver: Estevan Corcoran MD Albumin/Glob Ratio 1.4 Normal 1.0-2.5 [facility] Comment on above: Performed By: #### H CG, LIP, MG, CDP, CMPX #### [place] [address] Mixer Driver: Estevan Corcoran MD Alkaline Phos 105 U/L High 35-104 [facility] Comment on above: Performed By: #### H CG, LIP, MG, CDP, CMPX #### [place] [address] Mixer Driver: Estevan Corcoran MD Anion gap [Moles/Vol] 13 mmol/L Normal 9-17 [facility] Comment on above: Performed By: #### H CG, LIP, MG, CDP, CMPX #### [place] [address] Mixer Driver: Estevan Corcoran MD AST [Catalytic activity/Vol] 26 U/L Normal <32 [facility] Comment on above: Performed By: #### H CG, LIP, MG, CDP, CMPX #### [place] [address] Mixer Driver: Estevan Corcoran MD Bilirubin [Mass/Vol] 0.3 mg/dL Normal 0.3-1.2 [facility] Comment on above: Performed By: #### H CG, LIP, MG, CDP, CMPX #### [place] [address] Mixer Driver: Estevan Corcoran MD Calcium [Mass/Vol] 8.7 mg/dL Normal 8.6-10.4 [facility] Comment on above: Performed By: #### H CG, LIP, MG, CDP, CMPX #### [place] [address] Mixer Driver: Estevan Corcoran MD Chloride [Moles/Vol] 104 mmol/L Normal 98-107 [facility] Comment on above: Performed By: #### H CG, LIP, MG, CDP, CMPX #### [place] [address] Mixer Driver: Estevan Corcoran MD CO2 [Moles/Vol] 21 mmol/L Normal 20-31 [facility] Comment on above: Performed By: #### H CG, LIP, MG, CDP, CMPX #### [place] [address] Mixer Driver: Estevan Corcoran MD Creatinine [Mass/Vol] 0.60 mg/dL Normal 0.50-0.90 [facility] Comment on above: Performed By: #### H CG, LIP, MG, CDP, CMPX #### [place] [address] Mixer Driver: Estevan Corcoran MD GFR, Amer >60 Normal >[address] [facility] Comment on above: Performed By: #### H CG, LIP, MG, CDP, CMPX #### [place] [address] Mixer Driver: Estevan Corcoran MD GFR,non Amer >60 Normal >60 [facility] Comment on above: Performed By: #### H CG, LIP, MG, CDP, CMPX #### [address] [address] Mixer Driver: Estevna Corcoran MD Glucose [Mass/Vol] 105 mg/dL High 70-99 [facility] Comment on above: Performed By: #### H CG, LIP, MG, CDP, CMPX #### [place] [address] Mixer Driver: Estevan Corcoran MD Potassium [Moles/Vol] 3.5 mmol/L Low 3.7-5.3 [facility] Comment on above: Performed By: #### H CG, LIP, MG, CDP, CMPX #### [place] [address] Mixer Driver: Estevan Corcoran MD Protein [Mass/Vol] 7.4 g/dL Normal 6.4-8.3 [facility] Comment on above: Performed By: #### H CG, LIP, MG, CDP, CMPX #### [place] [address] Mixer Driver: Estevan Corcoran MD Sodium [Moles/Vol] 138 mmol/L Normal 135-144 [facility] Comment on above: Performed By: #### H CG, LIP, MG, CDP, CMPX #### [place] [address] Mixer Driver: Estevan Corcoran MD Urea nitrogen [Mass/Vol] 12 mg/dL Normal 6-20 [facility] Comment on above: Performed By: #### H CG, LIP, MG, CDP, CMPX #### [place] [address] Mixer Driver: Estevan Corcoran MD Comprehensive Metabolic Pane l w/ Reflex to MGon 01-03-2022 Albumin [Mass/Vol] 4.3 g/dL 3.5 - 5.2 g/dL [facility] Albumin/Globulin [Mass ratio] 1.4 {ratio} 1 - 2.5 [facility] ALP (Bld) [Catalytic activity/Vol] 105 U/L High 35 - 104 U/L [facility] ALT [Catalytic activity/Vol] 28 U/L 5 - 33 U/L [facility] Anion gap [Moles/Vol] 13 mmol/L 9 - 17 mmol/L [facility] AST [Catalytic activity/Vol] 26 U/L NINF - 32 U/L [facility] Bilirubin [Mass/Vol] 0.3 mg/dL 0.3 - 1 .2 mg/dL [facility] Calcium [Mass/Vol] 8.7 mg/dL 8.6 - 10. 4 mg/dL [facility] Chloride [Moles/Vol] 104 mmol/L 98 - 10 7 mmol/L [facility] CO2 [Moles/Vol] 21 mmol/L 20 - 31 mmol/L [facility] Creatinine [Mass/Vol] 0.6 mg/dL 0.5 - 0.9 mg/dL [facility] GFR >60 60 - PI NF mL/min [facility] GFR Non- >60 60 - PINF mL/min [facility] GFR/1.73 sq M.predicted MDRD (S/P/Bld) [Vol rate/Area] [facility] Comment on above: Average GFR for 30-3 9 years old: 107 mL/min/1.73sq m Chronic Kidney Disease: <60 mL/min/1.73sq m Kidney failure: <15 mL/min/1.73sq m eGFR calculated using average adult body mass. Additional eGFR calculator available at: http://www.[employer]/multiple_crcl_2012.htm Glucose [Mass/Vol] 105 mg/dL High 70 - 99 mg/dL [facility] Interpretation and review of laboratory results Abnormal [facility] Potassium [Moles/Vol] 3.5 mmol/L Low 3.7 - 5.3 mmol/L [facility] Protein [Mass/Vol] 7.4 g/dL 6.4 - 8.3 g/dL [facility] Sodium [Moles/Vol] 138 mmol/L 135 - 144 mmol/L [facility] Urea nitrogen (BldV) [Mass/Vol] 12 mg/dL 6 - 20 mg/dL [facility] HCG Qualitative, Serumon hCG Qual Negative NEGATIVE [facility] Comment on above: Specimens with hCG l evels near the threshold of the test (25 mIU/mL) may give a negative or indeterminate result. In such cases, another test should be performed with a new specimen in 48-72 hours. If early is suspected clinically in this setting, correlation with quantitative serum b-hCG level is suggested. [facility] has confirmed the use of plasma for this test. This has not been cleared or approved by the U.S. Food and Drug Administration. The FDA has determined that such clearance is not necessary. [facility] HCG Screen, Bloodon 01-04-20 22 HCG Screen, Blood Negative Normal NEG [facility] Comment on above: Result Comment: Spec imens with hCG levels near the threshold of the test (25 mIU/mL) may give a negative or indeterminate result. In such cases, another test should be performed with a new specimen in 48-72 hours. If early is suspected clinically in this setting, correlation with quantitative serum b-hCG level is suggested. [facility] has confirmed the use of plasma for this test. This has not been cleared or approved by the U.S. Food and Drug Administration. The FDA has determined that such clearance is not necessary. Performed By: #### H CG, LIP, MG, CDP, CMPX #### [address] [address] Mixer Driver: Estevan Corcoran MD Lipaseon 01-03-2022 Lipase [Catalytic activity/Vol] 20 U/L Normal 13-60 [facility] Comment on above: Performed By: #### H CG, LIP, MG, CDP, CMPX #### [address] [id number] Mixer Driver: Estevan Corcoran MD Lipase [Catalytic activity/Vol] 20 U/L 13 - 60 U/L [facility] Magnesiumon 01-03-2022 Magnesium [Mass/Vol] 2.1 mg/dL Normal 1.6-2.6 [facility] Comment on above: Performed By: #### H CG, LIP, MG, CDP, CMPX #### [facility] [address] [place], [place] [id number] Mixer Driver: Estevan Corcoran MD Magnesium [Mass/Vol] 2.1 mg/dL 1.6 - 2 .6 mg/dL [facility] Microscopic Urinalysison Bacteria, UA MANY Abnormal None [facility] Epithelial Cells UA TOO NUMEROUS TO COUNT [facility] Interpretation and review of laboratory results Abnormal [facility] Other Observations UA Utilizing a urinal ysis as the only screening method to exclude a potential uropathogen can be unreliable in many patient populations. Rapid screening tests are less sensitive than culture and if UTI is a clinical possibility, culture should be considered despite a negative urinalysis. Abnormal NOT REQ. [facility] RBC, UA 2 TO 5 [facility] WBC, UA 2 TO 5 [facility] UA w/Reflex Cultureon 2021 Bilirubin, SemiQt,Ur Negative Normal NEG [facility] Comment on above: Performed By: #### U AX, UMICAO ####[address] [address] Lab Director: Estevan Corcoran MD Blood, Urine LARGE Abnormal NEG [facility] Comment on above: Performed By: #### U AX, UMICAO ####[address] [address] Lab Director: Estevan Corcoran MD Clarity (U) Cloudy Abnormal CLEAR [facility] Comment on above: Result Comment: FOUL ODOR Performed By: #### U AX, UMICAO ####[address] [address] Lab Director: Estevan Corcoran MD Color (U) Yellow Normal YEL [facility] Comment on above: Performed By: #### U AX, UMICAO ####[address] [address] Lab Director: Estevan Corcoran MD Glucose Ql (U) Negative Normal NEG [facility] Comment on above: Performed By: #### U AX, UMICAO ####[place] [address] Lab Director: Estevan Corcoran MD Ketones Ql (U) Negative Normal NEG [facility] Comment on above: Performed By: #### U AX, UMICAO ####[address] [address] Lab Director: Estevan Corcoran MD Leukocyte esterase Test strip Ql (U) Negative Normal NEG [facility] Comment on above: Performed By: #### U AX, UMICAO ####[address] [address] Lab Director: Estevan Corcoran MD Nitrite,Ur Negative Normal NEG [facility] Comment on above: Performed By: #### U AX, UMICAO ####[address] [address] Lab Director: Estevan Corcoran MD PH,Ur 6.0 Normal 5.0-8.0 [facility] Comment on above: Performed By: #### U AX, UMICAO ####[place] [id number] [place], [place] [id number] Lab Director: Estevan Corcoran MD Protein Ql (U) Negative Normal NEG [facility] Comment on above: Performed By: #### U TERESA GILMANO ####[address] [id number] Lab Director: Estevan Corcoran MD Spec. [place],Ur 1.108 High 1.005-1.03 0 [facility] Comment on above: Result Comment: POST IV CONTRAST Performed By: #### U GEORGES GILMAN ####[place] [address] lab Director: Estevan Corcoran MD Urobilinogen,Ur Normal Normal NORM [facility] Comment on above: Performed By: #### U GEORGES GILMAN ####[place] [address] lab Director: Estevan oCrcoran MD Urinalysis with Reflex to Cu ltureon 01-03-2022 Bilirubin Urine Negative NEGATIVE [employer] [facility] [employer] Color, UA Yellow Yellow [facility] Glucose, Ur Negative NEGATIVE [employer] [facility] Interpretation and review of laboratory results Abnormal [facility] Ketones Ql (U) Negative NEGATIVE [employer] [facility] Leukocyte esterase Test strip Ql (U) Negative NEGATIVE [employer] [facility] Nitrite, Urine Negative NEGATIVE [facility] pH, UA 6.0 5 - [address] [employer] [facility] Protein, UA Negative NEGATIVE [employer] [facility] Specific [place], UA 1.108 High 1.005 - 1.03 [facility] Comment on above: POST IV CONTRAST Turbidity UA Cloudy Abnormal Clear [facility] Comment on above: FOUL ODOR Urine Hgb LARGE Abnormal NEGATIVE [employer] [facility] Urobilinogen, Urine Normal Normal [facility] [employer] [facility] Urinalysis,Microon 10-03-202 2 Bacteria MANY Abnormal NONE [facility] Comment on above: Performed By: #### U AX, UMICAO ####[address] [address] Lab Director: Estevan Corcoran MD Epithelial cells LM Ql (Urine sed) TOO NUMEROUS TO COUNT Normal 0-5 [facility] Comment on above: Performed By: #### U AX, UMICAO ####[address] [address] Lab Director: Estevan Corcoran MD Other Observations Utilizing a urinalys is as the only screening method to exclude a potential Abnormal NREQ [facility] Comment on above: Result Comment: urop athogen can be unreliable in many patient populations. Rapid screening tests are less sensitive than culture and if UTI is a clinical possibility, culture should be considered despite a negative urinalysis. Performed By: #### U AX, UMICAO ####[address] [address] Lab Director: Estevan Corcoran MD Urine RBC's 2 TO 5 Normal 0-2 [facility] Comment on above: Performed By: #### U AX, UMICAO ####[address] [address] Lab Director: Estevan Corcoran MD Urine WBC's 2 TO 5 Normal 0-5 [facility] Comment on above: Performed By: #### U AX, UMICAO ####[address] [address] Lab Director: Estevan Corcoran MD CT LUMBAR [...] leg pain. Follow-up MRI may be helpful. [facility] EXAMINATION: CT OF THE LUMBAR [...] SOFT TISSUES/RETROPERITONEUM: No paraspinal mass is seen. [facility] Boyd Beatty MD - 08/19/2021 [...] leg pain. Follow-up MRI may be helpful. [email or web address] Work Phone: Radiology Study observation (narrative) [employer] [facility] Work Phone: CT LUMBAR SPINE WO CONTRASTO rdered By: Boyd Beatty on 08-19-2021 [email or web address] Work Phone: Vital Signs Date Time Vital Sign Value Performing Clinician Faci linh 06-12-2023 10:05-0400 Body height 165.1 cm Rohit Metzger MD Work Phone: [employer] 06-12-2023 10:05-0400 Body mass index (BMI) [Ratio] 38.94 kg/m2 Rohit Metzger MD Work Phone: [employer] 06-12-2023 10:05-0400 Body weight 106.14 kg Rohit Metzger MD Work Phone: [employer] 05-16-2023 13:48-0500 Body height 165.1 cm Rohit Metzger MD Work Phone: [employer] 05-16-2023 13:48-0500 Body mass index (BMI) [Ratio] 38.94 kg/m2 Rohit Metzger MD Work Phone: [employer] 05-16-2023 13:48-0500 Body weight 106.14 kg Rohit Metzger MD Work Phone: [employer] 01-02-2023 10:00-0400 Body height 162.56 cm Johnathon Winter Other [employer] Other 01-02-2023 10:00-0400 Body mass index (BMI) [Ratio] 42.91 kg/m2 Johnathon Winter Other [employer] Other 01-02-2023 10:00-0400 Body weight 113.4 kg Johnathon Winter Other [employer] Other 01-02-2023 10:00-0400 Diastolic blood pressure 82 mm[Hg] Johnathon Winter Other [employer] Other 01-02-2023 10:00-0400 Systolic blood pressure 126 mm[Hg] Johnathon Winter Other [employer] Other 2022 11:00-0400 Body height 162.56 cm Johnathon Winter Other [employer] Other 2022 11:00-0400 Body mass index (BMI) [Ratio] 44.56 kg/m2 Johnathon Winter Other [employer] Other 2022 11:00-0400 Body weight 117.75 kg Johnathon Winter Other [employer] Other 2022 11:00-0400 Diastolic blood pressure 101 mm[Hg] Johnathon Winter Other [employer] Other 2022 11:00-0400 SaO2% (BldA) [Mass fraction] 100 % Johnathon Winter Other [employer] Other 2022 11:00-0400 Systolic blood pressure 138 mm[Hg] Johnathon Winter Other [employer] Other 10-11-2022 18:45-0400 Body height 165.1 cm Roxie Garcia MD Work Phone: [employer] 10-11-2022 18:45-0400 Body mass index (BMI) [Ratio] 43.93 kg/m2 Roxie Garcia MD Work Phone: [employer] 10-11-2022 18:45-0400 Body temperature 99 [degF] Roxie Garcia MD Work Phone: [employer] 10-11-2022 18:45-0400 Body weight 119.75 kg Roxie Garcia MD Work Phone: [employer] 10-11-2022 18:45-0400 Diastolic blood pressure 108 mm[Hg] Roxie Garcia MD Work Phone: [employer] 10-11-2022 18:45-0400 Heart rate 87 /min Roxie Garcia MD Work Phone: [employer] 10-11-2022 18:45-0400 Respiratory rate 16 /min Roxie Garcia MD Work Phone: [employer] 10-11-2022 18:45-0400 SaO2% (BldA) [Mass fraction] 98 % Roxie Garcia MD Work Phone: [facility] [employer] 10-11-2022 18:45-0400 Systolic blood pressure 160 mm[Hg] Roxie Garcia MD Work Phone: [facility] [employer] 01-03-2022 13:54-0400 Diastolic blood pressure 95 mm[Hg] Teo Thomas DO [facility] [employer] 01-03-2022 13:54-0400 Heart rate 61 /min Teo Froylanfman DO [facility] [employer] 01-03-2022 13:54-0400 SaO2% (BldA) [Mass fraction] 100 % Teo Froylanfman DO [facility] [employer] 01-03-2022 13:54-0400 Systolic blood pressure 142 mm[Hg] Teo Morean DO [facility] 01-03-2022 11:46-0400 Body height 165.1 cm Teo Agueroan DO [facility] [employer] 01-03-2022 11:46-0400 Body mass index (BMI) [Ratio] 44.1 kg/m2 Teo Froylanfman DO [facility] [employer] 01-03-2022 11:46-0400 Body temperature 97.7 [degF] Teo [facility]eroan DO [facility] [employer] 01-03-2022 11:46-0400 Body weight 120.2 kg Teo Thomas DO [facility] 01-03-2022 11:46-0400 Respiratory rate 16 /min Teo Morean DO [facility] [employer] 08-19-2021 18:03-0400 Diastolic blood pressure 98 mm[Hg] Radha Sanders MD Work Phone: [facility] [employer] 08-19-2021 18:03-0400 Heart rate 92 /min Radha Sanders MD Work Phone: [facility] [employer] 08-19-2021 18:03-0400 Respiratory rate 16 /min Radha Sanders MD Work Phone: [facility] [employer] 08-19-2021 18:03-0400 SaO2% (BldA) [Mass fraction] 96 % Radha Sanders MD Work Phone: [facility] 18:03-0400 Systolic blood pressure 145 mm[Hg] Radha Sanders MD Work Phone: [email or web address] 08-19-2021 16:28-0400 Body height 165.1 cm Radha Sanders MD Work Phone: [employer] [facility] 08-19-2021 16:28-0400 Body mass index (BMI) [Ratio] 45.76 kg/m2 Radha Sanders MD Work Phone: [email or web address] 08-19-2021 16:28-0400 Body temperature 98.6 [degF] Radha Sanders MD Work Phone: [email or web address] 08-19-2021 16:28-0400 Body weight 124.74 kg Radha Sanders MD Work Phone: [facility] Encounters Encounter Date Encounter Type Care Provider Facility Start: 06-26-2023 End: 06-27-2023 ambulatory Christiano Rivera MD Facility:[facility] Start: 06-15-2023 End: 06-15-2023 ambulatory SANJEEV TREADWELLO Not Available Start: 06-12-2023 End: 06-12-2023 ambulatory ROHIT SMITH [facility] Comment on above: Lumbar radiculopathy , chronic (Primary Dx); Herniated lumbar intervertebral disc Start: 06-12-2023 End: 06-12-2023 Office outpatient visit 10 minutes Rohit Smith MD [facility]: [facility] Comment on above: 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) Start: 06-06-2023 ambulatory RENY NO [facility] Start: 05-24-2023 Orders Only Reny barlow SILK WEAVER-COLLECTION CARD CLERK Work Phone: [facility] Comment on above: Herniated lumbar int ervertebral disc (Primary Dx); Lumbar radiculopathy, chronic Start: 05-23-2023 End: 05-23-2023 ambulatory Tee Peterson Facility:[facility] Start: 05-23-2023 End: 05-23-2023 ambulatory MD Tee Peterson Work Phone: [facility] Work Phone: Start: 05-23-2023 End: 05-23-2023 Departed Referred MD Tee Peterson Work Phone: [facility] Start: 05-19-2023 End: 05-20-2023 ambulatory [facility] Start: 05-16-2023 End: 05-16-2023 ambulatory ROHIT SMITH [facility] Start: 05-16-2023 End: 05-16-2023 Office outpatient new 30 minutes Rohit Smith MD Work Phone: [facility] Comment on above: 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); Finger injury, right, initial encounter Start: 05-15-2023 Orders Only Reny barlow SILK WEAVER-COLLECTION CARD CLERK Work Phone: [facility] Comment on above: Herniated lumbar int ervertebral disc (Primary Dx) Start: 05-10-2023 End: 05-10-2023 ambulatory Johnathon Winter Other [facility] NPTV Other Start: 05-10-2023 Encounter by compute r loretta Winter [facility] Start: 05-10-2023 Non-patient / Non-visit MD Jones Work Phone: [facility] Work Phone: Start: 05-04-2023 End: 05-05-2023 ambulatory [facility] Start: 05-04-2023 End: 05-04-2023 Office outpatient visit 10 minutes Oswaldo Dee NP Work Phone: [facility] Comment on above: 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); Pain in finger of right hand Start: 05-01-2023 End: 05-01-2023 ambulatory SANJEEV LOPEZ Not Available Start: 04-19-2023 End: 04-19-2023 ambulatory Scottie Lyn Other [facility] Other Start: 04-19-2023 Telephone encounter Scottie Lyn [facility] Start: 04-14-2023 End: 04-14-2023 Orders Only Serina Rodriguez RMA [facility] Comment on above: Back pain, unspecifi ed back location, unspecified back pain laterality, unspecified chronicity (Primary Dx) Start: 04-12-2023 End: 04-12-2023 ambulatory Johnathon Winter Other [facility] Other Start: 04-12-2023 Telephone encounter Johnathon Winter [facility] Start: 04-11-2023 End: 04-11-2023 ambulatory Johnathon Winter Other [facility] Other Start: 04-11-2023 Telephone encounter Johnathon Winter [facility] Start: 04-10-2023 End: 04-10-2023 ambulatory Johnathon Winter Other [facility] Other Start: 04-10-2023 Encounter by kriss Winter [facility] Start: 03-16-2023 End: 03-16-2023 ambulatory OSWALDO DEE Not Available Start: 03-09-2023 End: 03-09-2023 ambulatory Sanchez DICKEY Facility:[facility] Start: 01-30-2023 End: 01-30-2023 ambulatory Johnathon Winter Other [facility] Other Start: 01-30-2023 Telephone encounter Johnathon Winter [facility] Start: 01-02-2023 End: 01-02-2023 ambulatory Johnathon Winter Other [facility] Other Start: 01-02-2023 Office outpatient vi sit 15 minutes Johnathon Winter [facility] Start: 12-09-2022 End: 12-09-2022 ambulatory Johnathon Winter Other [facility] Other Start: 12-09-2022 Telephone encounter Johnathon Winter [facility] Start: 12-08-2022 End: 12-08-2022 ambulatory Johnathon Winter Other [facility] Other Start: 12-08-2022 Telephone encounter Johnathon Winter [facility] Start: 2022 End: 2022 ambulatory Johnathon Winter Other [facility] Other Start: 2022 Office outpatient ne w 30 minutes Johnathon Winter [facility] Start: 10-11-2022 End: 10-11-2022 Emergency department patient visit JOHNATHON WINTER [facility] Start: 10-11-2022 End: 10-11-2022 Emergency department patient visit Roxie Garcia MD Work Phone: [facility] Comment on above: Sprain of right ankl e, unspecified ligament, initial encounter (Primary Dx) Start: 07-11-2022 End: 07-11-[address] SANJEEV LOPEZ . Facility: Start: 04-29-2022 End: 04-30-[address] SANJEEV LOPEZ . Facility: Start: 04-08-2022 End: 04-08-2022 ambulatory Mary Díaz Facility:[facility] Start: 02-16-2022 End: 02-16-2022 Emergency department patient visit JOHNATHON WINTER [facility] Start: 01-03-2022 End: 01-03-2022 Emergency department patient visit JOHNATHON WINTER [facility] Start: 01-03-2022 End: 01-03-2022 Emergency department patient visit Teo Mina Aguerojoanne MUSTAFA [facility] ED Comment on above: Gastroenteritis (Neetu emil Dx) Start: 08-19-2021 End: 08-19-2021 Emergency department patient visit Radha Sanders MD Work Phone: [facility] Comment on above: Herniated lumbar int ervertebral disc (Primary Dx) Procedures Date Procedure Procedure Detail Performing Clinician Start: 06-12-2023 Follow-up visit Follow-up ROHIT CAMEJO V Start: 10-11-2022 Radex ankle complete minimum 3 views Bailee Lew SILK WEAVER - COLLECTION CARD CLERK Work Phone: Start: 01-03-2022 Urinalysis microscop ic only Zachariah Cristian SILK WEAVER - [employer] BOARDS BEVELER Work Phone: Start: 01-03-2022 Urnls dip stick/tabl et rgnt auto w/o microscopy Zachariah Cristian SILK WEAVER - [employer]AR[employer] BEVELER Work Phone: Start: 01-03-2022 Ct abdomen & pelvis w/contrast material Zachariah Cristian SILK WEAVER - [employer] BOARDS BEVELER Work Phone: Start: 01-03-2022 Assay of lipase Zachariah Cristian SILK WEAVER - [employer] BOARDS BEVELER Work Phone: Start: 12-01-2021 Adult depression screening assessment Serina ALVARADO Start: 08-19-2021 Ct lumbar spine w/o contrast material Radha Sanders MD Work Phone: Plan of Treatment Date Care Activity Detail Author Start: 06-11-2024 Adult BMI Screening Adult BMI Screen ing [facility] Start: 06-11-2024 Tobacco Screening Tobacco Screening [facility] Start: 05-16-2024 Adult BMI Screening Adult BMI Screen ing [facility] Start: 05-16-2024 Tobacco Screening Tobacco Screening [facility] Start: 05-08-2024 Adult BMI Screening Adult BMI Screen ing [facility] Start: 05-08-2024 Tobacco Screening Tobacco Screening [facility] Start: 04-14-2024 Adult BMI Screening Adult BMI Screen ing [facility] Start: 04-14-2024 Tobacco Screening Tobacco Screening [facility] Start: 07-19-2023 End: 07-19-2023 Patient encounter procedure 07/19/2023 1:45 PM EDT Office Visit [facility] [address] [place] [address] Vishal Martin, DO [address] [place] [address] [facility] Start: 07-17-2023 End: 07-17-2023 Patient encounter procedure 07/17/2023 10:00 AM EDT Office Visit [facility] [address] [place] [phone] Sanjeev Lopez DO [address] [address] [facility] Start: 06-12-2023 End: 06-12-2023 Patient encounter procedure 06/12/2023 10:05 AM EDT Office Visit [facility] [address] [facility] [address] [place] [phone] Rohit Smith MD [address] [place] [address] [facility] Start: 05-19-2023 End: 05-19-2023 Patient encounter procedure 05/19/2023 10:15 AM EST Appointment [facility] [address] [place] [address] [facility] Start: 05-16-2023 End: 05-16-2023 Patient encounter procedure 05/16/2023 1:45 PM EST Office Visit [facility] [address] [facility] [address] [place] [phone] Rohit Smith MD [address] [place] [address] [facility] Start: 05-08-2023 End: 02-05-2024 Patient encounter procedure 05/08/2023 1:30 PM EST [facility] [address] [place] [address] Reny No APRN-COLLECTION CARD CLERK [address] [facility] [place] [address] [facility] Start: 04-14-2023 End: 04-14-2024 XR Lumbar spine Views W flexion and W extension X-ray spine lumbar ap, lateral, flexion and extension only Imaging Routine Back pain, unspecified back location, unspecified back pain laterality, unspecified chronicity Expected: 04/14/2023, Expires: 04/14/2024 [facility] Work Phone: Comment on above: Expected: 04/14/2023 , Expires: 04/14/2024 Start: 12-02-2022 Influenza vaccination Influenza Vacc ine [facility] Start: 12-01-2022 Depression Screening Depression Scre ening [facility] Start: 11-01-2022 Influenza vaccination Flu vaccine (# 1) [facility] Start: 09-03-2022 Adult BMI Follow Up Plan Adult BMI Follow Up Plan [facility] Start: 12-02-2021 Influenza vaccination Flu vacc ine (Season Ended) [facility] Start: 11-01-2021 Influenza vaccination Flu vaccine (# 1) [facility] Start: 2017 Diabetes screen Diabetes screen [facility] Start: 2012 Screening for malignant neoplasm of cervix [facility] Start: 12-01-2003 Screening for malignant neoplasm of cervix Pap smear [facility] Start: 2001 DTaP,Tdap and Td Vaccines (1 - Tdap) DTaP,Tdap and Td Vaccines (1 - Tdap) [facility] Start: 2001 DTaP/Tdap/Td vaccine (1 - Tdap) DTaP/Tdap/Td vaccine (1 - Tdap) [facility] Start: 2000 Hepatitis C screening Hepatitis C sc reen [facility] Start: 1994 Depression Screen Depression Screen [facility] Start: 12-01-1987 COVID-19 Vaccine (1) COVID-19 Vaccin e (1) [facility] Start: 12-01-1983 Varicella vaccine (1 of 2 - 2-dose childhood series) Varicella vaccine (1 of 2 - 2-dose childhood series) [facility] Start: 06-01-1983 COVID-19 Vaccine (#1) COVID-19 Vacci ne (#1) [facility] Payers Date Payer Category Payer Self-pay 2022 Unknown [id number] 2022 Unknown [id number] 2020 Unknown [id number] 1.2.8 [id number] 1982 Unknown [id number] 2.16.84 [id number] 1982 Unknown [id number] 2.16.84 0.1.285080.3.579.2.593 1982 Unknown [id number] 2.16. [id number] 1982 Unknown [id number] 2.16. [id number] 1982 Unknown [id number] 2.16. 840.1.852021.3.579.2.175 1982 Unknown [id number] 2.16.8 40.1.317821.3.579.2.718 1982 Unknown [id number] 2.16.8 40.1.340456.3.579.2.718 1982 Unknown [id number] 2.16.8 40.1.036252.3.579.2.1286 1982 Unknown [id number] 2.16.8 40.1.313760.3.579.2.1286 1982 Unknown [id number] 2.16.8 40.1.564565.3.579.2.1286 1982 Unknown [id number] 2.16.8 40.1.851644.3.579.2.1286 1982 Unknown [id number] 2.16.8 40.1.945017.3.579.2.1286 1982 Unknown [id number] 2.16.84 0.1.724056.3.579.2.1286 1982 Unknown [id number] 2.16.84 0.1.521544.3.579.2.1259 1982 Unknown [id number] 2.16.84 0.1.732044.3.579.2.1259 1982 Unknown [id number] 2.16.84 0.1.686163.3.579.2.9 1982 Unknown [id number] 2.16.840 .1.245573.3.579.2.9 1982 Unknown [id number] 2.16. [id number] 1959 Unknown [id number] Social History Date Type Detail Facility Start: 06-15-2015 End: 03-31-2022 Tobacco smoking status [facility] Never smoked tobacco [email or web address] Start: 06-15-2015 End: 03-31-2022 Tobacco use and exposure Smokeless tobacco non-user [facility] Phone: Start: 08-19-2021 End: 06-12-2023 Alcohol intake Current non-drinker of alcohol (finding) [facility] Phone: Start: 05-14-2020 End: 08-19-2021 Alcohol intake [facility] Start: 06-15-2015 History SDOH Alcohol Comment rarely [facility] Phone: Start: 1980 Sex Assigned At Not on file [facility] Phone: Start: 08-09-2021 End: 01-03-2022 Exposure to SARS-CoV-2 (event) Not sure [facility] Phone: History of tobacco use Passive smoker [facility] Work Phone: Start: 05-14-2020 End: 04-14-2023 Sex Assigned At [facility] Adolescent depressio n screening assessment 0 [facility] Start: 05-04-2023 Alcohol intake Ex-drinker (finding) [facility] Start: 10-09-2022 Alcohol Comment Alcohol: 1 or 2 drinks on typical day/monthly or less. Caffeine: 1-2 cups/day tea [facility] Start: 1980 Sex Assigned At Female [facility] Start: 09-21-2022 Gender identity Identifies as female gender (finding) [facility] Start: 09-21-2022 Sexual orientation Heterosexual (finding) [facility] Clinical Notes 08-19-2021 to 06-12-2023 Rohit Metzger [...] take another few months to subside. Recommended gyzh-and-cirfvxv pain relievers as needed. She is content with where she is at right now with the finger. I will plan to see her back on an as-needed basis. All questions were answered. I, ROHIT SMITH MD, personally performed the face to face evaluation on this patient. I discussed with the patient and confirmed the accuracy and completeness of the aforementioned history prepared by the shade gap practice provider, and I personally performed the [...] any severe symptoms. documented in this encounter [employer] [facility] 05-16-2023 History of Present illness Narrative [facility] Chief Complaint: [...] a snap. She initially followed up with [facility] and was diagnosed with right ring [...] External notes reviewed: I reviewed notes from [facility] orthopaedics. Review of test/study reports: I reviewed an x-ray obtained of the right ring finger. There were no acute osseous abnormality such as fracture dislocation. My personal interpretation of tests: I personally viewed and interpreted X-rays from [facility] as above. Xrays done in office today: None. Assessment: 1. Mallet deformity of right ring finger - [facility] - [facility] Clinic - [place], [place] 2. Finger injury, right, initial encounter - [facility] - [facility] - [place], [place] Plan: I discussed treatment options with [...] with her flexion. documented in this encounter [facility] 05-10-2023 Evaluation note Encounter Date Diagnosis Assessment Notes May, Adult ADHD (attention deficit hyperactivity disorder) (ICD-10 - F90.9) [facility] Other 02-01-2024 History of Present illness Narrative* [...] finger for about 2 weeks. [place] [facility] due to having numbness in finger and unable to straighten it. Had XR at . On 03/13, pt went to [facility] [place] and had another XR[facility] Unable to get into hand specialist at [facility] until May 16. Continues to have [...] crooked. PT is RT handed Prior [place]: [facility] [place], Ice, Heat, IBU, [facility] ALLERGIES: No Known Allergies HOME MEDICATIONS: Current Outpatient Medications Medication Instructions amphetamine-dextroamphetamine (Adderall) 20 MG tablet 1 TABLET ORALLY MID DAY 30 DAYS cyclobenzaprine (Flexeril) 10 MG tablet PLEASE SEE ATTACHED FOR DETAILED DIRECTIONS fluconazole (DIFLUCAN) 100 mg, Oral, Daily nystatin (Mycostatin) 857702 UNIT/GM powder APPLY TO AFFECTED AREA TOPICALLY [...] normal Pronation: normal Supination: normal Muscle Strength Estimating Engineer: 3/5 Other Erythema: absent Pulse: present Comments: [...] develop for requiring urgent evaluation. Oswaldo Dee SILK WEAVER-COLLECTION CARD CLERK documented in [id number] Evaluation note* Encounter Date Diagnosis Assessment Notes Treatment Notes Treatment Clinical Notes Apr, Adult ADHD (attentio n deficit hyperactivity disorder) (ICD-10 - F90.9) [facility] Other 01-10-2024 Evaluation note* Encounter Date Diagnosis Assessment Notes Treatment Notes Treatment Clinical Notes Apr, Adult ADHD (attentio n deficit hyperactivity disorder) (ICD-10 - F90.9) [facility] Other 01-09-2024 Evaluation note* Encounter Date Diagnosis Assessment Notes Treatment Notes Treatment Clinical Notes Apr, Adult ADHD (attentio n deficit hyperactivity disorder) (ICD-10 - F90.9) [facility] Other 01-08-2024 Evaluation note* Encounter Date Diagnosis Assessment Notes Treatment Notes Treatment Clinical Notes Apr, Adult ADHD (attentio n deficit hyperactivity disorder) (ICD-10 - F90.9) [facility] Other 12-07-2023 NotePatient Education Materials Follows: Mallet [...] or lying down. General instructions ? Take iiwy-ztf-fumujba and prescription medicines only as told by [...] by your health care p (more contentnot included)...[id number] Evaluation note * Encounter Date Diagnosis Assessment Notes Treatment Notes Treatment Clinical Notes Jan, Adult ADHD (attentio n deficit hyperactivity disorder) (ICD-10 - F90.9) [facility] Other [id number] Evaluation note* Encounter Date Diagnosis Assessment Notes [...] in 3 months or sooner if needed. [facility] Other 09-08-2023 Evaluation note* Encounter Date Diagnosis Assessment Notes Treatment Notes Treatment Clinical Notes Dec, Adult ADHD (attentio n deficit hyperactivity disorder) (ICD-10 - F90.9) [facility] Other 09-07-2023 Evaluation note* Encounter Date Diagnosis Assessment Notes Treatment Notes Treatment Clinical Notes Dec, Adult ADHD (attentio n deficit hyperactivity disorder) (ICD-10 - F90.9) [facility] Other 08-30-2023 Evaluation note* Encounter Date Diagnosis [...] Cutaneous candidiasis (ICD-10 - B37.2) Refilled diflucan. [facility] Other 07-11-2023 Hospital Discharge instructions* Discharge Instructions* RIZWAN Dietz CNP - 10/11/2022 8:08 PM EDT Please [facility] a [facility] Use an ice pack or bag [...] through Care Everywhere. * RICE: General Info (Czech) * Ankle Sprain (Czech) [facility] NotePatient Education Materials Follows: Otitis Media, [...] Follow these instructions at home: ? Take eizh-otz-fmurebs and prescription medicines only as told by [...] provider. Document Revised: 06/28/2021 Document Reviewed: 06/28/2021 [employer] Patient Education ? 2021 [facility] Hospital Discharge instructions* Instructions* Radha Sanders MD - 08/19/2021 May use ice or heat, whichever feels better. May use [place] for pain. Prednisone as directed. Follow-up with [...] a follow up appointment THANK YOU!!! From [facility] and [facility] On behalf of the Emergency Department staff at [facility], I would like to thank you for giving us the opportunity to address your health care needs and concerns. We hope that during your visit, our service was delivered in a professional and caring manner. Please keep [facility] in mind as we walk with [...] how we did during your visit at [email or web address] and let us know about your experience * Attachments The following attachments cannot be sent through Care Everywhere. * Herniated Disc (Czech) [facility] Work Phone: evaluation note* Diagnosis Herniated lumbar intervertebral disc- Primary Displacement of lumbar intervertebral disc without myelopathy documented in this encounter [facility] [employer] Phone: evaluation note* Diagnosis Gastroenteritis- Primary Other and unspecified noninfectious gastroenteritis and colitis documented in this encounter [facility] Work Phone: evaluation note* Diagnosis Sprain of right ankle, unspecified ligament, initial encounter- Primary documented in this encounter [facility]istaEvaluation note* Diagnosis Back pain, unspecified back location, unspecified back pain laterality, unspecified chronicity- Primary documented in this encounter [facility] System[facility] noteNo InformationNomissouri baptist medical center [employer] Other Evaluation note* Diagnosis 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 Pain in finger of right hand Pain in soft tissues of limb documented in this encounter [facility] HealthcareEvaluation note* Diagnosis Herniated lumbar intervertebral disc- Primary Displacement of lumbar intervertebral disc without myelopathy [facility] Diagnosis 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 Finger injury, right, initial encounter documented in this encounter [facility]* Diagnosis Herniated lumbar intervertebral disc- Primary Displacement of lumbar intervertebral disc without myelopathy Lumbar radiculopathy, chronic [facility] noteNo assessment information [facility] Work Phone: Evaluation note* Diagnosis Lumbar radiculopathy, chronic- Primary Herniated lumbar intervertebral disc Displacement of lumbar intervertebral disc without myelopathy documented [facility]* Diagnosis 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 documented in this encounter [facility] general Narrative - Reported* Type Description Date Medical History PCOS/insulin resistant Medical History PCOS (polycystic ovarian syndrom e) Medical History Frequent headaches Medical History Gestational diabetes Medical History Prediabetes Surgical History cholecystectomy 2004 Surgical History appendectomy 2006 Surgical History Hospitalization History see surgical hx [place] [employer] Other Hospital Discharge instructions* Attachments The following attachments cannot be sent through Care Everywhere. * Gastroenteritis (Czech) documented in this encounterBON [employer] Work Phone: InstructionsNot on filedocumented in this encounter [facility] filedocumented in this encounter [facility] filedocumented in this encounter [facility] SystemInstructionsNot on filedocumented in this encounter [facility] SystemReason for referral (narrative)* Consultation (Routine) - Pending Review Specialty Diagnoses / Procedures Referred By Contact Referred To Contact Physical Medicine and Rehabilitation Diagnoses Herniated lumbar intervertebral disc Lumbar radiculopathy, chronic Reny No APRN-CNP [address] [place] [address] Vishal Martin DO [address] [place] [address] Referral ID Status Reason Start Date Expiration Date Visits Requested Visits Authorized [id number] Pending Review Specialty Services Required 05/24/2023 05/23/2024 1 1 [facility] Consultation (Routine) - Pending Review Specialty Diagnoses / Procedures Referred By Contac t Referred To Contact Pain Medicine Diagnoses Lumbar radiculopathy, chronic Herniated lumbar intervertebral disc Reny No APRN-CNP [address] [place] [address] Davis Silva MD [address] [place] [address] Referral ID Status Reason Start Date Expiration Date V isits Requested Visits Authorized [id number] Pending Review 06/12/2023 06/11/2024 1 1 [facility] Advance Directives No Advanced Directives Records FoundDocuments on File Type Date Recorded Patient Career Services Officer Expl anation ACP-Advance Directive ACP-[employer] Programmer Summary Purpose Family History No Family History [...] site of digit, initial encounter Nicole Lockwood, SILK WEAVER-COLLECTION CARD CLERK [address] [place] [address] Rohit Smith MD [address] [phone] Referral ID Status Reason Start Date Expiration Date Visits Requested Visits Authorized [id number] Pending Review Specialty Services Required 3 03/12/2024 [...] would not scan at bedside. Verified with [facility] prior to administration.) Scheduled Medication Order [...] Care Teams (unrecognized sec tion and content) Pediatric Ophthalmologist Relationship Specialty Start Date End Date Johnathon Winter MD PCP - General Family Medicine 03/08/16 Pediatric Ophthalmologist Relationship Specialty Start Date End Date Johnathon Winter MD PCP - General Family Medicine 03/08/16 Pediatric Ophthalmologist Relationship Specialty Start Date End Date Johnathon Winter MD PCP - General Family Medicine 03/08/16 Pediatric Ophthalmologist Relationship Specialty Start Date End Date Johnathon Winter MD [address] [place] [id number] PCP - General 03/13/23 Pediatric Ophthalmologist Relationship Specialty Start Date End Date Johnathon Winter MD [address] [place] [id number] PCP - General Family Medicine 12/12/22 Pediatric Ophthalmologist Relationship Specialty Start Date End Date Johnathon Winter MD [address] [place] [id number] PCP - General 03/13/23 Pediatric Ophthalmologist Relationship Specialty Start Date End Date Johnathon Winter MD [address] [place] [address] PCP - General 03/13/23 Pediatric Ophthalmologist Relationship Specialty Start Date End Date Johnathon Winter MD [address] [place] [address] PCP - General 03/13/23 Team Status: Active Member Role Status Dates Johnathon Winter MD Primary Care Provide r, Attending Provider Active Start: May 10, 2023 Team Status: Inactive Member Role Status Dates Tee Peterson MD Attending Provider Active Start: May 23, 2023 End: May 23, 2023 Pediatric Ophthalmologist Relationship Specialty Start Date End Date Johnathon Winter MD [address] [place] [address] PCP - General 03/13/23 INFORMATION SOURCE (unrecogn ized section and content) DATE CREATED AUTHOR 07/17/2022 [facility] DATE CREATED AUTHOR AUTHOR'S ORGANIZ ATION 10/12/2022 [facility] DATE CREATED AUTHOR AUTHOR'S ORGANIZ ATION 03/11/2023 [facility] DATE CREATED AUTHOR AUTHOR'S ORGANIZ ATION 06/01/2023 [facility] DATE CREATED AUTHOR AUTHOR'S ORGANIZ ATION 06/07/2023 [facility] DATE CREATED AUTHOR AUTHOR'S ORGANIZ ATION 06/12/2023 [facility] DATE CREATED AUTHOR AUTHOR'S ORGANIZ ATION 06/16/2023 [facility] EP[facility] DATE CREATED AUTHOR AUTHOR'S ORGANIZ ATION 07/06/2023 [facility] Goals (unrecognized section and content) Goals [...] BE BASED ON THE PRIMARY CLINICAL RECORDS. [employer] [facility]. provides no warranty or guarantee of the accuracy or completeness of information in this document.
[2023-07-26 10:10] LABS: Age Gdln ACOG Testing Note (.); HPV Aptima Negative (Negative); IGP, Aptima HPV, rfx 16/18,45 Note (.)
== END 2023-07-19 20:44 | disposition home or self-care (01) ==
LOC: LAB 20:43
PROVIDERS: PCP Family Medicine; Visit Provider Obstetrics & Gynecology
DX: Z01.419 Encounter for gynecological examination (general) (routine) without abnormal findings (principal)
CPT/HCPCS: 87624; G0145

== ENCOUNTER 2023-07-31 06:55 | Day surgery (SDC) | payer BC, SELFPAY ==
--- OUTSIDE RECORDS SUMMARY | 2023-07-31 06:58 | XMS_ITS | CCD ---
Author Organization [facility] Care Team Providers [facility] Honer Name Role Phone Johnathon Winter MD Primary Care Provider [phone] GEORGINA ., DR ROMERO Admitting Unavailable GEORGINA ., DR ROMERO Attending Unavailable REQUEST, NONE LISTED Primary Care Unavaila ble GEORGINA ., DR ROMERO Consulting Unavailable Tee Peterson Consulting Unavailable GEORGINA ., DR ROMERO Admitting Unavailable GEORGINA ., DR ROMERO Attending Unavailable REQUEST, DR NONE LISTED Primary Care Unavaila ble GEORGINA ., DR ROMERO Consulting Unavailable Johnathon Winter MD Primary Care Provider [phone] JOHNATHON WINTER Primary Care Unavailable ROXIE GARCIA Attending Unavailable JOHNATHON WINTER Primary Care Unavailable SANCHEZ AGUSTIN Attending Unavailable JOHNATHON WINTER Primary Care Unavailable TEO THOMAS Attending Unavailable Johnathon Winter Unavailable Mary Díaz Primary Care Unavailable Stevens PACAd Admitting Unavailable Ad Ortega Attending Unavailable Sanchez John Attending Unavaila Johnathon Thomson Primary Care Unavailable Sanchez John Admitting UnavailJohnathon Mantilla MD Primary Care Provider Scottie Lyn Unavailable Johnathon Winter MD Primary Care Provider MD Tee Peterson Attending Provider [phone] Tee Peterson Attending Unavailable Tee Peterson Admitting Unavailable RENY NO Attending Unavailable JOHNATHON WINTER Referring Unavailable JOHNATHON WINTER Primary Care Unavailable RENY NO Referring Unavailable JOHNATHON WINTER Primary Care Unavailable RENY NO Referring Unavailable JOHNATHON WINTER Primary Care Unavailable ROHIT LARKIN Attending Unavailable JOHNATHON WINTER Referring Unavailable JOHNATHON WINTER Primary Care Unavailable JOHNATHON WINTER Referring Unavailable JOHNATHON WINTER Primary Care Unavailable KAL MARTINEZ Attending Unavailable ROHIT LARKIN Attending Unavailable ASMITA MONTGOMERY Referring Unavailable JOHNATHON WINTER Primary Care Unavailable SANJEEV LOPEZ Attending Unavailable OSWALDO DEE Attending Unavailable SANJEEV LOPEZ Attending Unavailable SANJEEV LOPEZ Attending Unavailable OSWALDO DEE Attending Unavailable Bhavin Montgomery MD Primary Care Unavailable Miguel SÁNCHEZ, Christiano Mcgovern Attending Unavailable Miguel SÁNCHEZ, Christiano Mcgovern Attending Unavailable Felicia SÁNCHEZ, Bhavin [facility] Unavailable Medications Current Medications Medication Drug Class(es) [...] take 1 capsule by mo [facility] every twenty-four hours Vyvanse 30 MG [...] once a week. 0 02/27/2023 Active nystatin [id number] unt/ml topical cream (9 sources) Polyene Antifungal Start: 05-01-2023 End: 04-30-2024 nystatin (Mycostatin) cream Indications: Follow-up encounter involving medication , Superficial skin infection Apply topically 2 (two) times a day 30 g 3 05/01/2023 04/30/2024 Active Start: 04-14-2023 nystatin (MYCO STATIN) powder Apply 1 Application topically in the morning and 1 Application before bedtime. 0 04/14/2023 Active Start: 04-14-2023 nystatin (Myco statin) [id number] UNIT/GM powder Indications: Skin irritation APPLY TO [...] Active Start: 01-03-20[address] [facility] three times daily as needed for nausea [...] days 20 tablet 0 08/19/2021 08/29/2021 Active Dgm-Xjp-RE-Fish Oil ([facility]) 0.4-113.5 MG CHEW (2 sources) Wkz-Pav-QH-Fish Oil ([facility]) 0.4-113.5 MG CHEW Take [...] (8 sources) Backache; Translations: [Dorsalgia, unspecified] Onset: 01-12-2024 01-12-2024 Episodic Sprains and strains (4 sources) Sprain [...] Test Name Value Interpretation Reference Range Facility [facility] 05-23-2023 L Specimen: [id number] Received: 05/24/23 Status: NATHAN Guzmán Num: [id number] Spec Type: Surgical Subm Dr: Tee Peterson MD Tissues: A BREAST CORE NO CALCS (LT BREAST) Procedures: HE/4, Gross/Micro L4, AE1-AE3/2 Age/ Patient Sex Location Account Attending Physician Karuna Dumont 42/F [facility] [id number] Tee Peterson MD SPEC NUM: [id number] RECD: 05/24/23 STATUS: NATHAN GUZMÁN NUM: [id number] GENEVA: 05/23/23- SUBM DR: Tee Peterson MD ENTERED: 05/24/[address] [facility] [address]: Bert,Lab SPEC TYPE: Surgical DEPT: [facility]OLDAN [...] Time: 0.10 Formalin Fixation Time: 28.50 Specimen: [id number] Received: 05/24/23 Status: NATHAN Burnsroberto Num: [id number] Spec Type: Surgical Subm Dr: Tee Peterson MD Tissues: A BREAST CORE NO CALCS (LT BREAST) Procedures: HE/4, Gross/Micro L4, AE1-AE3/2 Patient: Karuna Dumont [id number] (Continued) Specimen: [id number] Received: 05/24/23 (Continued) Signed (signature on file) Tootie Jordan MD 05/31/23 2106 Specimen: [id number] Received: 05/24/23 Status: NATHAN Guzmán Num: [id number] Spec Type: Surgical Subm Dr: Tee Peterson MD Tissues: A BREAST CORE NO CALCS (LT BREAST) Procedures: HE/4, Gross/Micro L4, AE1-AE3/2 Patient: Karuna Dumont [id number] (Continued) Specimen: [id number] Received: 05/24/23 (Continued) CPT Codes 08099 Specimen: [id number] Received: 05/24/23-1322 Status: NATHAN Guzmán Num: [id number] Spec Type: Surgical Subm Dr: Tee Peterson MD Tissues: A BREAST CORE NO CALCS (LT BREAST) Procedures: HE/4, Gross/Micro L4, AE1-AE3/2 Patient: Karuna Dumont [id number] (Continued) Signed (signature on file) Tootie Jordan MD 05/31/232105 [facility] MR LUMBAR SPINE WO CONTon MR [...] Yung Perry on 05/23/2023 12:47 PM Normal [facility] Free testosterone measuremen t by LC-MS/MSon 05-10-2023 Testosterone Free [Mass/Vol] 0.6 pg/mL 0.0-4.2 [facility] Comment on above: Performed at: [address] [id number] Director: Theron Roblero PhD, Phone: [phone] at: [address] [id number] Director: Katelynn Macdonald MD, Phone: [phone] No Panel Informationon 05-10 C-Peptide 2.8 ng/mL 1.1-4.4 [facility] Comment on above: C-Peptide reference interval is for fasting patients.Performed at: [address] [id number] Director: Theron Roblero PhD, Phone: [phone] Dehydroepiandrosterone Sulfate 194.0 ug/dL 57.3-279.2 [facility] Free Cortisol, Dialysis, LCMS 0.787 ug/dL . [facility] Comment on above: These tests were dev eloped and their performancecharacteristics determined by [facility]. They have not beencleared or approved by the Food and Drug Administration.Reference Range:8 AM 0.10 - 1.204 PM 0.042 - 0.872Performed at: ES - [facility] [id number] [place], [place] [id number] Director: Kal Archibald MD, Phone: [phone] Reverse Triiodothyronine (T3) 23.0 ng/dL 9.2-24.1 [facility] Comment on above: This test was develo ped and its performance characteristicsdetermined by [facility]. It has not been cleared orapproved by the Food and Drug Administration.Performed at: [address] [id number] Director: Katelynn Macdonald MD, Phone: [phone] Sex Hormone Binding Globulin 49.1 nmol/L 24.6-122.0 [facility] Comment on above: Performed at: [facility] [address] [id number] Director: Theron Roblero PhD, Phone: [phone] Testosterone Level 22 ng/dL 8-60 [facility] Plasma serotonin measurement (mass/volume)on 05-10-2023 Serotonin (P) [Mass/Vol] 105 ng/mL 31-207 [facility] Comment on above: This test was develo ped and its performance characteristicsdetermined by [facility]. It has not been cleared orapproved by the Food and Drug Administration.Performed at: [facility] [id number] Director: Katelynn Macdonald MD, Phone: [phone] Serum estrone measurementon 05-10-2023 E1 [Mass/Vol] 65 pg/mL 27-231 [facility] Comment on above: Range Adult (Premeno pausal) 27 - 231 Menstrual Cycle (1-10 days) 19 - 149 Menstrual Cycle (11-20 days) 32 - 176 Menstrual Cycle (21-30 days) 37 - 200Performed at: [facility] [id number] Director: Katelynn Macdonald MD, Phone: [phone] Serum or plasma estradiol (E 2) measurement (mass/volume)on 05-10-2023 E2 [Mass/Vol] 98.9 pg/mL . [facility] Comment on above: Adult Female Range F ollicular phase 12.5 - 166.0 Ovulation phase 85.8 - 498.0 Luteal phase 43.8 - 211.0 Postmenopausal <6.0 - 54.7 1st trimester 215.0 - >4300.0Roche ECLIA methodology Serum or plasma insulin mariam urement (units/volume)on 05-10-2023 Insulin Qn 7.0 u[iU]/mL 2.6-24.9 [facility] Comment on above: Performed at: [facility] [address] [id number] Director: Theron Roblero PhD, Phone: [phone] Serum or plasma progesterone measurement (mass/volume)on 05-10-2023 Progesterone [Mass/Vol] 0.1 ng/mL . [facility] Comment on above: Follicular phase 0.1 - 0.9 Luteal phase 1.8 - 23.9 Ovulation phase 0.1 - 12.0 First trimester 11.0 - 44.3 Second trimester 25.4 - 83.3 Third trimester 58.7 - 214.0 Postmenopausal 0.0 - 0.1Performed at: [facility] [place] [id number] Director: Theron Roblero PhD, Phone: [phone] Serum or plasma thyroperoxid ase antibody assay (units/volume)on 05-10-2023 TPO Ab Qn 11 [IU]/mL 0-34 [facility] Thyroglobulin [Mass/volume] in Serum or Plasmaon 05-10-2023 Thyroglobulin [Mass/Vol] <1.0 [IU]/mL 0.0-0.9 [facility] Comment on above: Thyroglobulin Antibo dy measured by Sarah CornerBlueMethodologyPerformed at: CB - [facility] [address] [place], [place] [id number] Director: Theron Roblero PhD, Phone: [phone] XR LUMBAR SPINE AP, LATERAL, FLEXION AND [...] Yung Perry on 05/05/2023 1:28 PM Normal [facility] ED Clinical Summaryon 2022 ED Clinical Summary [facility] [address] [place], [place] [id number] Clinical Summary PERSON INFORMATION Name: KARUNA DUMONT Age: 42 Years Sex: FEMALE : 1980 MRN: Acct#: Visit Reason: UC - Finger/Thumb Injury; RT RING FINGER INJURY Arrival: 03/09/2023 10:15:32 Discharge: 03/09/2023 12:03:00 LOS: 000 01:48 Check In: 03/09/2023 10:15:32 Checkout: 03/09/2023 12:03:00 Address: [address] [facility] [address] PCP: Johnathon Winter MD PROVIDER INFORMATION Provider [...] With: Address: When: YUNG LAWS DO [address] [employer] [address] [address] Within 3 to 5 days [...] verbalizes understanding of instructions given Comment: Normal [facility] ED Patient Summaryon 023 ED Patient Summary [facility] Care [address] [place] [address] PATIENT DISCHARGE INSTRUCTIONS Patient Information Name: KARUNA DUMONT Age: 42 Years Date of : 1980 Reason For Visit: UC - Finger/Thumb Injury; RT RING FINGER INJURY Arrival Time: 03/09/2023 10:15:32 Primary Care Physician: Johnathon Winter MD Attending Physician: Sanchez John Comment: Patient Education With: Address: When: VETO YUNG Santa DO [address] [employer] [address] [place] [address] Within 3 to 5 days Comments: [...] or cold (more content not included)... Normal [facility] Recordon 023 Urgent Care Record 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 [facility] has provided you with a complete list of medications post discharge. 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 [facility] XR Finger Righton 03-09-2023 XR Finger Right [...] MD 03/09/23 11:56 a Technologist: Vannesa DANGELO [facility] No Panel Informationon 10-11 No acute bony abnormalities are noted [facility] RIS CONSOLIDATED EXAMINATION: THREE XRAY VIEWS OF [...] well maintained. Soft tissue swelling. Calcaneal spurs [facility] Miller Romo MD - [...] IMPRESSION: No acute bony abnormalities are noted [facility] Radiology Study observation (narrative) [facility] No Panel InformationOrdered By: Miller Romo on 10-11-2022 [facility] Work Phone: XR ANKLE RIGHT (MIN [...] Miller Romo MD 10/11/[address] [facility] XR FOOT RIGHT (MIN 3 VIEWS)o [...] Miller Romo MD 10/11/[address] [facility] PAP ACOG PANEL 2: 30 to 65on 07-16-2022 . . Normal [facility] Comment on above: Result Comment: Perf ormed at: WB Performed By: #### [id number] #### [facility] [address] [place] [address] Dr. Dang Kirby Age Gdln ACOG Testing 30-65 Normal [facility] Comment on above: Performed By: #### [id number] #### [facility] [address] [address] [address] Dang Kirby DIAGNOSIS: Comment Normal [facility] Comment on above: Result Comment: NEGA TIVE FOR INTRAEPITHELIAL LESION OR MALIGNANCY. THIS SPECIMEN WAS RESCREENED PART OF OUR RETAIL FINANCIAL ANALYST PROGRAM. Performed at: WB Performed By: #### 4 [id number] #### [facility] [address] [place] [address] Dr. Dang Kirby HPV Aptima Negative Normal Negative [facility] Comment on above: Result Comment: This nucleic acid amplification test detects fourteen high-risk HPV types (16,18,31,33,35,39,45,51,52,56,58,59,66,68) without differentiation. Performed at: =G Performed By: #### 4 [id number] #### [facility] [address] [address] [address] Dang Kirby HPV Genotype Reflex Comment Normal [facility] Comment on above: Result Comment: Crit eria not met, HPV Genotype not performed. Performed at: WB Performed By: #### [id number] #### [facility] [address] [place] [address] Dr. Dang Kirby Methodology: Comment Normal [facility] Comment on above: Result Comment: This liquid based ThinPrep(R) pap test was screened with the use of an image guided system. Performed at: WB Performed By: #### 4 [id number] #### [facility] [address] [place] [address] Dr. Dang Kirby Note: Comment Normal [facility] Comment on above: Result Comment: The Pap smear is a screening test designed to aid in the detection of premalignant and malignant conditions of the uterine cervix. It is not a diagnostic procedure and should not be used as the sole means of detecting cervical cancer. Both false-positive and false-negative reports do occur. . Performed at: WB Performed By: #### [id number] #### [facility] [address] [place] [address] Dr. Dang Kirby Performed by: Comment Normal [facility] Comment on above: Result Comment: Flavia Stanford, Laboratory Director (ASCP) Performed at: WB Performed By: #### 4 [id number] #### [facility] [address] [place] [address] Dr. Dang Kirby QC reviewed by: Comment Normal [facility] Comment on above: Result Comment: Valentino Victor, Laboratory Director Performed at: WB Performed By: #### 4 [id number] #### [facility] [address] [place] [address] Dr. Dang Kirby Specimen adequacy: Comment Normal [facility] Comment on above: Result Comment: Sati sfactory for evaluation. No endocervical component is identified. Performed at: WB Performed By: #### [id number] #### [facility] [address] [place] [address] Dr. Dang Kirby MG MAMM DIAGNOSTIC 3D RAMA CA Don 04-29-2022 MG MAMM DIAGNOSTIC 3D RAMA CAD Patient: KARUNA DUMONT Exam Date: 04/29/2022 : 1980 Gender:F Ordering : DR SANJEEV LOPEZ . Admission #: [id number] Family : Order #: [id number] CLICK HERE TO VIEW EXAM RADIOLOGY REPORT PROCEDURE: MAMMOGRAM DIAGNOSTIC 3D BILATERAL CAD, 04/29/2022, 10:05 ULTRASOUND BREAST RIGHT LIMITED, 04/29/2022, 11:04 COMPARISON: None. INDICATIONS: Pain of breast Calculator Name NCI Breast Cancer Risk Assessment Tool 5 Year Breast Cancer Risk Not Reported. Lifetime Breast Cancer Risk Not Reported. Personal Breast Cancer No Personal Ovarian Cancer No Treatments None Family Cancers None LOCATION: [facility] BREAST COMPOSITION: Scattered areas fibroglandular density. FINDINGS: [...] M.D. on 04/29/2022 at 14:55 Normal [facility] US BREAST RIGHT LIMITEDon US BREAST RIGHT LIMITED Patient: KARUNA DUMONT Exam Date: 04/29/2022 : 1980 Gender:F Ordering : DR SANJEEV LOPEZ . Admission #: [id number] Family : Order #: [id number] CLICK HERE TO VIEW EXAM RADIOLOGY REPORT PROCEDURE: MAMMOGRAM DIAGNOSTIC 3D BILATERAL CAD, 04/29/2022, 10:05 ULTRASOUND BREAST RIGHT LIMITED, 04/29/2022, 11:04 COMPARISON: None. INDICATIONS: Pain of breast Calculator Name NCI Breast Cancer Risk Assessment Tool 5 Year Breast Cancer Risk Not Reported. Lifetime Breast Cancer Risk Not Reported. Personal Breast Cancer No Personal Ovarian Cancer No Treatments None Family Cancers None LOCATION: [facility] BREAST COMPOSITION: Scattered areas fibroglandular density. FINDINGS: [...] Peterson M.D. on 04/29/2022 at 14:55 Normal [facility] Coding Summaryon 04-18-2022 Coding Summary HTMLBase 64 TtbafmwmIQi7yJq+PGhlYWQ+ ZC3QSPAaO60xlAZuoO1IH3vP JF1EIDOKFTUJBC7ENI1asPD5 LDiiK7AttyZw GdvkoBWbTT73NPt9MAQ8vXov AElyrK7pbRLfV5v1HaFoNN35 zS51DHisVIWeZsU2YiTpgqde bWFy L2wgHpKdzEPqKqs+PHRhYmxl IHdpZHRoPScxMDAlJyBzdHls OI6dQq7vYUMmQJSrgSvbgVTu OiBj t8arYWVrXNcoEL7igPhqI4Vj sTM9TBBna3y3Vk06hMH+PHRk ESH1zCyqMAswm248FiGfb0lj IDM3 fWIxPTzzGQR8E59mn8T5ZIZo PNCuWLC3dHD0kX4msHdafxrc Q0ZgrLSqOqF6DFK0rUZcqY8e bGln rhpnbZ5bHui+C39NFZ2XLDPT QO6SRhp0M3FlKzqdxIF+PC90 QQZkLR57cVKdsZEih7kgbTp1 JzEw MUPlCIX3uXbcHTupo7TdUWXo Q40cwJUue7B3FUTpsRtcsAEd XhHjaJR0xJ5fNCestixon1gx dzsn Mvisy8flwh63wE80F74lUYzb HSOrTEU0HBSkNNUvrDontu8k mN1pKa0+RGrfr9xai1mixOq9 IjIw YEVvrzCeaXfjSEH6k5VeUu29 N9CngMqea2QcPuf0dw53gYSn l2K3xDQ2DMdxIQJmkR4eYNgq ZnQ6 ICRcBdBcdU31bNGeWVriGd9q sMqteJwdJM5nIOMljdojUNMc bN8eCONbcAItbMcxIU9wHWJi bjtm t512LlCdJHY1ZUYqmLTaB7Zh jN6qRhVjDZDiDGOsK9EqvPYd VOveP135OQlnTvR9WFPzhvLo Y2Fs CPKdmMztPcG1i9Y5Wm7Am0Ff yffuGJX8VDalLIXtUmA0XwKo SoO0G8ZlAaz1TOQmmKyhLB9s J3Bh WQRrvpumnueljKP8AMRcSHEq cW10xTCsQPikQe2sf2Q3l305 NMVyOKZuqF80Jo6yzUmmOGXm dCBU fH9ujpjrd8cherftTlEtMVTw LPs4AEk9EAKnvUddImEuJFN7 TtQ4SQX0xCCeqF8doWiloiwi dG9w Oyc+H58hdO8xKNU1MBW5zbqv GNFfrlJyLT76LG06G9LgOslo dGFibGU+HXItlyUtbIycIQ6k YmFj p3ewz1VrCXgrS6KyHFOdOCne Nhb8TUTsUDU8xKI3nW3bDNUj TJjie1A3yDU4I3SldwVqeb0t b2xs APUyBXvuE61nxVYvc6S2PMHz dKE6MTZwwYkoFyKmyE73Chr+ HGUobGwiu8FoTvqtk0jsb2bj dGg9 QlQsMGOyhbHhgRvgSWH2o5Qc Gb08D90aHLxeSYPtEOItAOPl GOWniPiehv1qlK3hHs4+PGNv bCB3 oTQ2dH3bYPPwKnC5KOllX614 DbCayULsJxepe2erf5ledSd9 ZuRvCMChzmOvnTtpTON1d7Mv Lz48 K28iYPmzCZNfTMWsTIQqUWRh mXxmci5fuI9yOi6+HZ6mp1fk se24jN77zFP+HNHjHHP1bSuv PSdw TKZshV2cBHsbRkE5PTUfLnSk eD87yXLwFGspVi7iqZtpwAgt LO7pEOAfkbcrs881TlYmc5dm IDEw bYStARxrVDE1F70cc7U7NGQd ZRJqRCX5qFH1uW2efZjxibrj bGVmdDsgdmVydGljYWwtYWxp Z246 IHRvcDsnPlBhdGllbnQgTmFt IMx2U7HeHjh1RSZtyPwrFO8v pUHaLVbvNt7gvNygaVppGC8r NTBp xfseu653NjHlp9bcOYBzbRIv QWyhWLE4U09fs2V9IKSkZKEh NET2qMX3jU9wwCmhvdvgqRVb dDsg dtRxfUdeHZrlLIfsY821SNYt aXtgMyLuyhYtNNVjwSG0PB61 CG42rQQme0Z1kSY5Y4SaYHPb bmct pqwbdHS0FHVfXVFjuN01Ku8f pIweVk6iUGNmWQV0CJQkgCYs P2HjfS5hOkUbKWEvSROyT1Cf eHQt ZMhwW731XGzpDeK0NSXcqzSy K2UsQHGpdBorXgB6e8H2If3V I5N3XN40EZ39nGHfy7U3fQP8 J3Bh CBYryrsnuacinKR9UIAmLXFb kG71Aq8fzBlrBh7nQKXiWWU7 OEEtiNRkO9KkhW2wLlXrQGPh MDAw V0SbaSBlJPayP450QOauGlW5 BMCituXzU8QoTCRpwXwqHpW3 h3Z7Ji2RTUi8TK31PS00jQUv c3R5 sEW9D0XvGUBxtiznazawqEG4 QDSrJIElaD96Kr1ivIvtOz0g EDFhIAR5OAOaiJPtN2QvoG4p OiAj VMRhTJPpU8MzzYRyHWtzW989 CEghUcB7GCErscCyK8UlWNAq eBsuMpL7x9D9Uc9DYRRfTS55 IFR5 bER3AE19QE15H1HgCdqkdWKu bGU+PHRhYmxlIHdpZHRoPScx PKNtOdBtuEftJR7fZw2nLDTv LWNv yHxjjKOfQyZzf6vcWMBlQJvx KA8lkXgrA2JimOH0MICak4v8 Dx88X07rW3TxpYF+PGNvbCB3 aWR0 iP7jKlPtCoS0OYkhX439BkNk xMAuQfkdk8eek6nxpQy5XfV1 OORzjiYwbTvuRAY2g1PdGn74 Y29s IHdpZHRoPSIxNSUiIHZhbGln gm8esK1dSc8+IKKqkNL4vFK1 cA2qOyPmYlZ1BNjrQ288OjIt cCIv Uweiy7ska1qmaXt7IaEtUPFw omImcJsuKNF0t6FlOt18X8It xXrsh8VkTfp5ou35hUXzm7S4 bGU9 A5KoXVCjgeineSJyhOhjRK7q SMObhoasMQFmhM5fGTYsA9g7 BqUsHwH7MMjvS9OqujM1MMMt cHQg EXifZAR7H65yq8I7UFOgGEEs YXI0sMW8iZ6tzLdfegkfsLQy fSnnlmWyiMvbIMvwXDsuI585 IHRv kQwtQDZiiS7bPYOcvRMouFkb ZM1vNMCakdltAksTLTMMPJwm MW6ZUbOBCVXRI664I7XsWcg1 ZCBz ePgtNY7lbNUeWLkqPs5ngQrm yUcwPF4bKNAvggreJZGbbE8d ULHdlZHuwZbpZN7nSYTovgjc b250 EkAuTHQ1CQZvwVSpA2IomN1x IlTpKHNpWHPzM2FdyQZsKUiu U951OTxmIwW2NIQnwjGaD5Ok LWFs vTymNyU9h1C7Pq5mJP6cSU4h OOjlAV00CD98gHNdc9D6lAM0 M4KsPSGtyipbyhckkXP5SIKc MDUw nE04nYJoFTgwDa9po4H1j463 NDGgZYOobO02De1thNdnSVMu iKRUsU4jfaybm8rzxtseTrDx MDAw PLf5AXb0PMOqeFtcXwSlDIF8 IfB1PZR4pBJsdN3tqSxsqazm gZ1vLgq+ZfmfZCJrjqP7B4Hh Pjx0 OJRenWpoBA4dxPVhQPoiKy1v tYuplNekXN2xWGUuzddlFTOy dQ9aUCChkEOwiUagVJ1mXUNj bjtm s561IiRzYNF1NCVgpUHtA6Dk iN1wMvMdGGPbQDLkY9QweNFi NEnbT780MKuwWoA7SOFjfvDi Y2Fs YNOjoQsnGlA1g2M8Je1IDU8T VRJ5B2WvYhs8IPLspCwiXL2l kCKqTYwgPm2amExjfLhpFO3f NTBp jsagCGGkaN5dXHFdcQZbgWub PS6pGPWpehwab619KmShRCH0 MKNqsBUvE8ChyD8oAoFjZGLb MDAw V3ZtmXJzWNcxN905GAkyHvU4 ZCJymeQoF3NxTPSjhPtuJrA1 n4I5As1LZRkrpOG+PP91ix01 L3Rh SjmvLnv9LNSwLYQ6aUY3iS3b MSYvBMylb2Q2bSO8N0XangYg yf4qx0hjZYIaNDkpR80tmITn c2U7 TDQekDR2IQXktQaxOqXtjU47 Oyc+HKFecGxbj3YoKzcsn6qt k3zxrNc4GoEpDLNxxaTwfWil PSJ0 s8YdQf44K25pIWerGQMdVLDj VFXqHDNgzFdyll2wxB9yYo2+ JORkoHU5kEU2rA9iMaFdUjV9 YWxp N123KlZmkMQgAilni8hll3id tCc1TkRxRFBqzvRtiGoyTNJ3 h6HuVb50J5NitPiev0OsQxj1 cj48 hCGgg4K7qIT9Z1AxMDQgorxo iSJokMuhNC5qKQIhyjlgZBBg pK0sMUPtB6p8WuZtUiD0EDqp O2Zv uwI6YSFhfCYoTMZzvFIVwE6v gktlg7ivbythVtGlDPLbZOn3 ETm7BKJwhUnkErBhBYL5EjP4 ZXJ0 uVYlqZ5gmGosirxloK6zGpl+ WOl8r0wybLEoZN3yfTM0BE15 SK71aGXgr6L0wRM1K8XyRGMl bmct ixdykCB1GRGiGCAsfD95Uy2t qGmbTw2fVSXnBEX9FHUfqELe U5PxdP8uEoLyHHLqOYYzL8Io eHQt HSyeU498UMdwVbY5BQRynqYg E9IzVDKltFguVkX7c7X9Pd1S FU37AV31WB01nJMym3C0oVG8 J3Bh PQZovgfgmroxbFB1AMSuXCVr qU32To8jkUilQo0kXUNzLZW1 RYPuzIUoN2IkpF1qWkMfKDIi MDAw P6AczUJhHGqoW571AVolTpJ1 NGEblvOiC7NgPVWcxBnzAzO0 f8Q9Hq5ILz60HB60LL94eFXc c3R5 qQW3N6ZpRLNdzvdvyyvzfHV5 BWMdHCMgpG93Cp4kyNewEu3o EKLeAVN8ACPsxEMvY2XtqR4c OiAj KEIpMWUoB7WjcISuBEyuD328 WQplJmN5ULSegwByZ4LaQZRu nHlrHsU6z7W3Nq6EFTkkfsd1 L3Rk PjwvdHI+XP12RJPePX19bLSv wPRlo3slrQv4MoHvLAHbZRN4 vWykYSzdd0HiMUWgW69hjVUd c2U6 IGN (more content not included)... [facility] ED Clinical Summaryon 2022 ED Clinical Summary [facility] ? [facility] [address] [place], [place] [id number] Clinical Summary PERSON INFORMATION Name: KARUNA DUMONT Age: 41 Years Sex: FEMALE : 1980 MRN: Acct#: Visit Reason: UC - Headache; BI LAT EAR PAIN, DIZZINESS, HEADACHE, CONGESTION Arrival: 04/08/2022 16:57:05 Discharge: 04/08/2022 19:05:00 LOS: 000 02:08 Check In: 04/08/2022 16:57:05 Checkout: 04/08/2022 19:05:00 Address: [facility] [address] PCP: Mary Díaz DO PROVIDER INFORMATION Provider [...] With: Address: When: Mary Díaz [address] [place] [address] Business (1) Comments: Patient seen in urgent [...] verbalizes understanding of instructions given Comment: [facility] ED Patient Summaryon 023 ED Patient Summary [facility] ? [facility]gent Care [address] [place] [address] PATIENT DISCHARGE INSTRUCTIONS Patient Information Name: KARUNA DUMONT Age: 41 Years Date of : 1980 Reason For Visit: UC - Headache; BI LAT EAR PAIN, DIZZINESS, HEADACHE, CONGESTION Arrival Time: 04/08/2022 16:57:05 Primary Care Physician: Mary Díaz DO Attending Physician: Ad Ortega Comment: Patient Education With: Address: When: Mary Bowendarellflorinda [address], [place] [id number] [place] (1) Comments: Patient seen in urgent care [...] Follow these instructions at home: ? Take [id number] and prescription medicines only as told by [...] ear, usual (more content not included)... Normal [facility] Note- Provideron 04-08-2022 Urgent Care Note- Provider Patient: KRAUNA DUMONT Age: 41 years Sex: FEMALE : [...] 10. 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 Disposition: [...] tab(s), 0 (more content not included)... Normal [facility] Rec[facility] 023 Urgent Care Record [facility] ? Urgent Care [address] [place] [address] PATIENT DISCHARGE INSTRUCTIONS Patient Information Name: KARUNA [...] (H83.90) Mild nausea (R11.0) UC - Headache ([id number] -[id number]) If you received any narcotics, sedation, or [...] With: Address: When: Mary Díaz [address] [place] [address] Business (1) Comments: Patient seen [...] and treatment you received today in the [facility] were for an urgent [...] so we can reach you if necessary. [facility] has provided you with a complete list of medications post discharge. 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 Any specific questions regarding your chronic medications and dosages should be discussed with your primary care physician(s) and/or pharmacist. New Medications [facility], [address], [place] [id number], [phone] amoxicillin-clavulanate (!-Augmentin 875 mg-125 mg oral tablet) [...] with signs (more content not included)... Normal [facility] CT CERVICAL SPINE WO CONTRAS Ton 02-16-2022 [...] Oziel Fox MD 02/16/[address] [facility] XR CLAVICLE LEFTon XR CLAVICLE LEFT [...] Miller Romo MD 02/16/[address] [facility] XR SHOULDER LEFT (MIN 2 VIEW [...] Emil Flores MD 02/16/[address] [facility] CBC with Auto Differentialon 01-03-2022 Absolute Eos # 0.10 [facility] Absolute Lymph # 1.60 [facility] Absolute Garrett # 0.40 [facility] Basophils (Bld) [#/Vol] 0.00 10*3/uL [facility] Basophils/100 WBC (Bld) 1 % 0 - 2 % B [facility] Eosinophils/100 WBC (Bld) 2 % 1 - 4 % [facility] Hematocrit (Bld) [Volume fraction] 46.0 % 36 - 46 % [facility] Hemoglobin (Bld) [Mass/Vol] 15.4 g/dL 12 - 16 g/dL [facility] Interpretation and review of laboratory results Abnormal [facility] Lymphocytes/100 WBC (Bld) 29 % 24 - 44 % [facility] MCH (RBC) [Entitic mass] 28.6 pg 26 - 34 pg [facility] MCHC (RBC) [Mass/Vol] 33.4 g/dL 31 - 3 7 g/dL [facility] MCV (RBC) [Entitic vol] 85.9 fL 80 - 100 fL [facility] Monocytes/100 WBC (Bld) 8 % 2 - 11 % B ON [facility] Platelet distribution width (Bld) [Ratio] 14.1 % 12.5 - 15.4 % [facility] Platelet mean volume (Bld) [Entitic vol] 7.6 fL 6 - 12 fL [facility] Platelets (Bld) [#/Vol] 277 10*3/uL [facility] RBC (Bld) [#/Vol] 5.36 10*6/uL High 4 - 5.2 m/uL [facility] Segmented neutrophils/100 WBC (Bld) 60 % 36 - 66 % [facility] Segs Absolute 3.40 [facility] WBC (Bld) [#/Vol] 5.6 10*3/uL [facility] CBC with Diffon 01-03-2022 Abs. Basophil 0.00 k/uL Normal 0.0-0.2 [facility] Comment on above: Performed By: #### H CG, LIP, MG, CDP, CMPX #### [place] [address] Respiratory Therapy Manager: Estevan Corcoran MD Abs.Neutrophil (Seg) 3.40 k/uL Normal 1.8-7.7 [facility] Comment on above: Performed By: #### H CG, LIP, MG, CDP, CMPX #### [place] [id number] [place] [address] Respiratory Therapy Manager: Estevan Corcoran MD Basophils/100 WBC (Bld) 1 % Normal 0-2 M [facility] Comment on above: Performed By: #### H CG, LIP, MG, CDP, CMPX #### [place] [id number] [place], [place] [id number] Respiratory Therapy Manager: Estevan Corcoran MD Eosinophils (Bld) [#/Vol] 0.10 10*3/uL Normal 0.0-0.4 [facility] Comment on above: Performed By: #### H CG, LIP, MG, CDP, CMPX #### [place] [address] Respiratory Therapy Manager: Estevan Corcoran MD Eosinophils/100 WBC (Bld) 2 % Normal 1-4 [facility] Comment on above: Performed By: #### H CG, LIP, MG, CDP, CMPX #### [place] [address] Respiratory Therapy Manager: Estevan Corcoran MD Erythrocyte distribution width (RBC) [Ratio] 14.1 % Normal 12.5-15.4 [facility] Comment on above: Performed By: #### H CG, LIP, MG, CDP, CMPX #### [place] [address] Respiratory Therapy Manager: Estevan Corcoran MD Hematocrit (Bld) [Volume fraction] 46.0 % Normal 36-46 [facility] Comment on above: Performed By: #### H CG, LIP, MG, CDP, CMPX #### [place] [address] Respiratory Therapy Manager: Estevan Corcoran MD Hemoglobin (Bld) [Mass/Vol] 15.4 g/dL Normal 12.0-16.0 [facility] Comment on above: Performed By: #### H CG, LIP, MG, CDP, CMPX #### [place] [id number] Respiratory Therapy Manager: Estevan Corcoran MD Lymphocytes (Bld) [#/Vol] 1.60 10*3/uL Normal 1.0-4.8 [facility] Comment on above: Performed By: #### H CG, LIP, MG, CDP, CMPX #### [place] [address] Respiratory Therapy Manager: Estevan Corcoran MD Lymphocytes/100 WBC (Bld) 29 % Normal 24-44 [facility] Comment on above: Performed By: #### H CG, LIP, MG, CDP, CMPX #### [place] [address] Respiratory Therapy Manager: Estevan Corcoran MD MCH (RBC) [Entitic mass] 28.6 pg Normal 26-34 [facility] Comment on above: Performed By: #### H CG, LIP, MG, CDP, CMPX #### [place] [address] Respiratory Therapy Manager: Estevan Corcoran MD MCHC (RBC) [Mass/Vol] 33.4 g/dL Normal 31-37 [facility] Comment on above: Performed By: #### H CG, LIP, MG, CDP, CMPX #### [place] [address] Respiratory Therapy Manager: Estevan Corcoran MD MCV (RBC) [Entitic vol] 85.9 fL Normal 80-100 M [facility] Comment on above: Performed By: #### H CG, LIP, MG, CDP, CMPX #### [place] [address] Respiratory Therapy Manager: Estevan Corcoran MD Monocytes (Bld) [#/Vol] 0.40 10*3/uL Normal 0.1-1.2 [facility] Comment on above: Performed By: #### H CG, LIP, MG, CDP, CMPX #### [place] [address] Respiratory Therapy Manager: Estevan Corcoran MD Monocytes/100 WBC (Bld) 8 % Normal 2-11 M [facility] Comment on above: Performed By: #### H CG, LIP, MG, CDP, CMPX #### [place] [address] Respiratory Therapy Manager: Estevan Corcoran MD Neutrophil (Seg) 60 % Normal 36-66 [facility] Comment on above: Performed By: #### H CG, LIP, MG, CDP, CMPX #### [place] [address] Respiratory Therapy Manager: Estevan Corcoran MD Platelet mean volume (Bld) [Entitic vol] 7.6 fL Normal 6.0-12.0 [facility] Comment on above: Performed By: #### H CG, LIP, MG, CDP, CMPX #### [place] [address] Respiratory Therapy Manager: Estevan Corcoran MD Platelets (Bld) [#/Vol] 277 10*3/uL Normal 140-450 [facility] Comment on above: Performed By: #### H CG, LIP, MG, CDP, CMPX #### [place] [address] Respiratory Therapy Manager: Estevan Corcoran MD RBC (Bld) [#/Vol] 5.36 10*6/uL High 4.0-5.2 [facility] Comment on above: Performed By: #### H CG, LIP, MG, CDP, CMPX #### [place] [address] Respiratory Therapy Manager: Estevan Corcoran MD WBC (Bld) [#/Vol] 5.6 10*3/uL Normal 3.5-11.0 [facility] Comment on above: Performed By: #### H CG, LIP, MG, CDP, CMPX #### [facility] [address] [place] [address] Respiratory Therapy Manager: Estevan Corcoran MD CT ABDOMEN PELVIS W [...] Papito Mishra MD 01/03/[address] [facility] CT ABDOMEN PELVIS W IV CONTR AST Additional Contrast? Noneon 01-03-2022 1. Fluid within smal l bowel loops and ascending colon which can be seen as sequela of a gastroenteritis. 2. Prior appendectomy. Prior cholecystectomy. 3. Fatty liver. 4. Mild colonic diverticulosis. 5. Small midline fat containing periumbilical hernia. 6. No clear evidence for small bowel obstruction. PN RIS CONSOLIDATED EXAMINATION: CT OF THE ABDOMEN [...] L5-S1. Mild levoscoliosis of the lumbar spine. [facility] RIS CONSOLIDATED Papito Mishra MD - 01/03/2022 [...] No clear evidence for small bowel obstruction. [employer] Phone: Radiology Study observation (narrative) [employer] Phone: CT ABDOMEN PELVIS W IV CONTR AST Additional Contrast? NoneOrdered By: Papito Mishra on 01-03-2022 [employer] Phone: Comp Metabolic Pr/rfx MGon 1 ALT [Catalytic activity/Vol] 28 U/L Normal 5-33 [facility] Comment on above: Performed By: #### H CG, LIP, MG, CDP, CMPX #### [address] [address] Respiratory Therapy Manager: Estevan Corcoran MD (cont.) [facility] Comment on above: Result Comment: Aver age GFR for 30-39 years old: 107 mL/min/1.73sq m Chronic Kidney Disease: <60 mL/min/1.73sq m Kidney failure: <15 mL/min/1.73sq m eGFR calculated using average adult body mass. Additional eGFR calculator available at: http://www.[employer].Techpoint/multiple_crcl_2012.htm Performed By: #### H CG, LIP, MG, CDP, CMPX #### [address] [address] Respiratory Therapy Manager: Estevan Corcoran MD Albumin [Mass/Vol] 4.3 g/dL Normal 3.5-5.2 [facility] Comment on above: Performed By: #### H CG, LIP, MG, CDP, CMPX #### [place] [address] Respiratory Therapy Manager: Estevan Corcoran MD Albumin/Glob Ratio 1.4 Normal 1.0-2.5 [facility] Comment on above: Performed By: #### H CG, LIP, MG, CDP, CMPX #### [place] [address] Respiratory Therapy Manager: Estevan Corcoran MD Alkaline Phos 105 U/L High 35-104 [facility] Comment on above: Performed By: #### H CG, LIP, MG, CDP, CMPX #### [place] [address] Respiratory Therapy Manager: Estevan Corcoran MD Anion gap [Moles/Vol] 13 mmol/L Normal 9-17 [facility] Comment on above: Performed By: #### H CG, LIP, MG, CDP, CMPX #### [place] [address] Respiratory Therapy Manager: Estevan Corcoran MD AST [Catalytic activity/Vol] 26 U/L Normal <32 [facility] Comment on above: Performed By: #### H CG, LIP, MG, CDP, CMPX #### [place] [address] Respiratory Therapy Manager: Estevan Corcoran MD Bilirubin [Mass/Vol] 0.3 mg/dL Normal 0.3-1.2 [facility] Comment on above: Performed By: #### H CG, LIP, MG, CDP, CMPX #### [facility] [place] [id number] Respiratory Therapy Manager: Estevan Corcoran MD Calcium [Mass/Vol] 8.7 mg/dL Normal 8.6-10.4 [facility] Comment on above: Performed By: #### H CG, LIP, MG, CDP, CMPX #### [place] [address] Respiratory Therapy Manager: Estevan Corcoran MD Chloride [Moles/Vol] 104 mmol/L Normal 98-107 [facility] Comment on above: Performed By: #### H CG, LIP, MG, CDP, CMPX #### [place] [address] Respiratory Therapy Manager: Estevan Corcoran MD CO2 [Moles/Vol] 21 mmol/L Normal 20-31 [facility] Comment on above: Performed By: #### H CG, LIP, MG, CDP, CMPX #### [place] [address] Respiratory Therapy Manager: Estevan Corcoran MD Creatinine [Mass/Vol] 0.60 mg/dL Normal 0.50-0.90 [facility] Comment on above: Performed By: #### H CG, LIP, MG, CDP, CMPX #### [place] [address] Respiratory Therapy Manager: Estevan Corcoran MD GFR, Amer >60 Normal >60 [facility] Comment on above: Performed By: #### H CG, LIP, MG, CDP, CMPX #### [place] [id number] Respiratory Therapy Manager: Estevan Corcoran MD GFR,non Amer >60 Normal >60 [facility] Comment on above: Performed By: #### H CG, LIP, MG, CDP, CMPX #### [place] [address] Respiratory Therapy Manager: Estevan Corcoran MD Glucose [Mass/Vol] 105 mg/dL High 70-99 [facility] Comment on above: Performed By: #### H CG, LIP, MG, CDP, CMPX #### [place] [address] Respiratory Therapy Manager: Estevan Corcoran MD Potassium [Moles/Vol] 3.5 mmol/L Low 3.7-5.3 [facility] Comment on above: Performed By: #### H CG, LIP, MG, CDP, CMPX #### [place] [address] Respiratory Therapy Manager: Estevan Corcoran MD Protein [Mass/Vol] 7.4 g/dL Normal 6.4-8.3 [facility] Comment on above: Performed By: #### H CG, LIP, MG, CDP, CMPX #### [place] [address] Respiratory Therapy Manager: Estevan Corcoran MD Sodium [Moles/Vol] 138 mmol/L Normal 135-144 [facility] Comment on above: Performed By: #### H CG, LIP, MG, CDP, CMPX #### [place] [address] Respiratory Therapy Manager: Estevan Corcoran MD Urea nitrogen [Mass/Vol] 12 mg/dL Normal 6-20 [facility] Comment on above: Performed By: #### H CG, LIP, MG, CDP, CMPX #### [place] [id number] Respiratory Therapy Manager: Estevan Corcoran MD Comprehensive Metabolic Pane l w/ Reflex to MGon 01-03-2022 Albumin [Mass/Vol] 4.3 g/dL 3.5 - 5.2 g/dL [facility] Albumin/Globulin [Mass ratio] 1.4 {ratio} 1 - 2.5 [facility] ALP (Bld) [Catalytic activity/Vol] 105 U/L High 35 - 104 U/L [facility] ALT [Catalytic activity/Vol] 28 U/L 5 - 33 U/L [facility] Anion gap [Moles/Vol] 13 mmol/L 9 - 17 mmol/L [facility] AST [Catalytic activity/Vol] 26 U/L NINF - 32 U/L [facility] Bilirubin [Mass/Vol] 0.3 mg/dL 0.3 - 1 .2 mg/dL [facility] Calcium [Mass/Vol] 8.7 mg/dL 8.6 - 10. 4 mg/dL [facility] Chloride [Moles/Vol] 104 mmol/L 98 - 10 7 mmol/L [facility] CO2 [Moles/Vol] 21 mmol/L 20 - 31 mmol/L [facility] Creatinine [Mass/Vol] 0.6 mg/dL 0.5 - 0.9 mg/dL [facility] GFR >60 60 - PI NF mL/min [facility] GFR Non- >60 60 - PINF mL/min [facility] GFR/1.73 sq M.predicted MDRD (S/P/Bld) [Vol rate/Area] [facility] Comment on above: Average GFR for 30-3 9 years old: 107 mL/min/1.73sq m Chronic Kidney Disease: <60 mL/min/1.73sq m Kidney failure: <15 mL/min/1.73sq m eGFR calculated using average adult body mass. Additional eGFR calculator available at: http://www.[employer]point/multiple_crcl_2012.htm Glucose [Mass/Vol] 105 mg/dL High 70 - 99 mg/dL [facility] Interpretation and review of laboratory results Abnormal [facility] Potassium [Moles/Vol] 3.5 mmol/L Low 3.7 - 5.3 mmol/L [facility] Protein [Mass/Vol] 7.4 g/dL 6.4 - 8.3 g/dL [facility] Sodium [Moles/Vol] 138 mmol/L 135 - 144 mmol/L [facility] Urea nitrogen (BldV) [Mass/Vol] 12 mg/dL 6 - 20 mg/dL [facility] HCG Qualitative, Serumon hCG Qual Negative NEGATIVE [facility] Comment on above: Specimens with hCG l evels near the threshold of the test (25 mIU/mL) may give a negative or indeterminate result. In such cases, another test should be performed with a new specimen in 48-72 hours. If early is suspected clinically in this setting, correlation with quantitative serum b-hCG level is suggested. [facility] has confirmed the use of plasma for this test. This has not been cleared or approved by the U.S. Food and Drug Administration. The FDA has determined that such clearance is not necessary. [facility] HCG Screen, Bloodon 01-04-20 HCG Screen, Blood Negative Normal NEG [facility] Comment on above: Result Comment: Spec imens with hCG levels near the threshold of the test (25 mIU/mL) may give a negative or indeterminate result. In such cases, another test should be performed with a new specimen in 48-72 hours. If early is suspected clinically in this setting, correlation with quantitative serum b-hCG level is suggested. [facility] has confirmed the use of plasma for this test. This has not been cleared or approved by the U.S. Food and Drug Administration. The FDA has determined that such clearance is not necessary. Performed By: #### H CG, LIP, MG, CDP, CMPX #### [facility] [address] [place] [address] Respiratory Therapy Manager: Estevan Corcoran MD Lipaseon 01-03-2022 Lipase [Catalytic activity/Vol] 20 U/L Normal 13-60 [facility] Comment on above: Performed By: #### H CG, LIP, MG, CDP, CMPX #### [place] [id number] [place] [address] Respiratory Therapy Manager: Estevan Corcoran MD Lipase [Catalytic activity/Vol] 20 U/L 13 - 60 U/L [facility] Magnesiumon 01-03-2022 Magnesium [Mass/Vol] 2.1 mg/dL Normal 1.6-2.6 [facility] Comment on above: Performed By: #### H CG, LIP, MG, CDP, CMPX #### [place] [id number] [place] [address] Respiratory Therapy Manager: Estevan Corcoran MD Magnesium [Mass/Vol] 2.1 mg/dL 1.6 - 2 .6 mg/dL [facility] Microscopic Urinalysison Bacteria, UA MANY Abnormal None [facility] Epithelial Cells UA TOO NUMEROUS TO COUNT [facility] Interpretation and review of laboratory results Abnormal [facility] Other Observations UA Utilizing a urinal ysis as the only screening method to exclude a potential uropathogen can be unreliable in many patient populations. Rapid screening tests are less sensitive than culture and if UTI is a clinical possibility, culture should be considered despite a negative urinalysis. Abnormal NOT REQ. [facility] RBC, UA 2 TO 5 [facility] WBC, UA 2 TO 5 [facility] UA w/Reflex Cultureon 2021 Bilirubin, SemiQt,Ur Negative Normal NEG [facility] Comment on above: Performed By: #### U TERESA GILMANO ####[address] [address] Lab Director: Estevan Corcoran MD Blood, Urine LARGE Abnormal NEG [facility] Comment on above: Performed By: #### U AXPRABHAKARICAO ####[address] [address] Lab Director: Estevan Corcoran MD Clarity (U) Cloudy Abnormal CLEAR [facility] Comment on above: Result Comment: FOUL ODOR Performed By: #### U AX, UMICAO ####[address] [address] Lab Director: Estevan Corcoran MD Color (U) Yellow Normal YEL [facility] Comment on above: Performed By: #### U AX, UMICAO ####[address] [address] Lab Director: Estevan Corcoran MD Glucose Ql (U) Negative Normal NEG [facility] Comment on above: Performed By: #### U AX, UMICAO ####[address] [address] Lab Director: Estevan Corcoran MD Ketones Ql (U) Negative Normal NEG [facility] Comment on above: Performed By: #### U AX, UMICAO ####[address] [address] Lab Director: Estevan Corcoran MD Leukocyte esterase Test strip Ql (U) Negative Normal NEG [facility] Comment on above: Performed By: #### U AX, UMICAO ####[address] [address] Lab Director: Estevan Corcoran MD Nitrite,Ur Negative Normal NEG [facility] Comment on above: Performed By: #### U AX, UMICAO ####[address] [address] Lab Director: Estevan Corcoran MD PH,Ur 6.0 Normal 5.0-8.0 [facility] Comment on above: Performed By: #### U AX, UMICAO ####[place] [address] Lab Director: Estevan Corcoran MD Protein Ql (U) Negative Normal NEG [facility] Comment on above: Performed By: #### U AX, UMICAO ####[place] [address] lab Director: Estevan Corcoran MD Spec. [place],Ur 1.108 High 1.005-1.[address] [facility] Comment on above: Result Comment: POST IV CONTRAST Performed By: #### U AX UMICAO ####[place] [address] lab Director: Estevan Corcoran MD Urobilinogen,Ur Normal Normal NORM [facility] Comment on above: Performed By: #### U AX UMICAO ####[place] [address] lab Director: Estevan Corcoran MD Urinalysis with Reflex to Cu ltureon 01-03-2022 Bilirubin Urine Negative NEGATIVE [facility] Color, UA Yellow Yellow [facility] Glucose, Ur Negative NEGATIVE [facility] Interpretation and review of laboratory results Abnormal [facility] Ketones Ql (U) Negative [facility] Leukocyte esterase Test strip Ql (U) Negative NEGATIVE [facility] Nitrite, Urine Negative NEGATIVE [facility] pH, UA 6.0 5 - 8 [facility] Protein, UA Negative NEGATIVE [facility] Specific [place], UA 1.108 High 1.005 - 1.03 [facility] Comment on above: POST IV CONTRAST Turbidity UA Cloudy Abnormal Clear [facility] Comment on above: FOUL ODOR Urine Hgb LARGE Abnormal NEGATIVE [facility] Urobilinogen, Urine Normal Normal [facility] Urinalysis,Microon 2 Bacteria MANY Abnormal NONE [facility] Comment on above: Performed By: #### U AX, UMICAO ####[address] [id number] Lab Director: Estevan Corcoran MD Epithelial cells LM Ql (Urine sed) TOO NUMEROUS TO COUNT Normal 0-5 [facility] Comment on above: Performed By: #### U AX UMICAO ####[address] [address] Lab Director: Estevan Corcoran MD Other Observations Utilizing a urinalys is as the only screening method to exclude a potential Abnormal NREQ [facility] Comment on above: Result Comment: urop athogen can be unreliable in many patient populations. Rapid screening tests are less sensitive than culture and if UTI is a clinical possibility, culture should be considered despite a negative urinalysis. Performed By: #### U AX, UMICAO ####[address] [address] Lab Director: Estevan Corcoran MD Urine RBC's 2 TO 5 Normal 0-2 [facility] Comment on above: Performed By: #### U AX, UMICAO ####[address] [id number] Lab Director: Estevan Corcoran MD Urine WBC's 2 TO 5 Normal 0-5 [facility] Comment on above: Performed By: #### U AX, UMICAO ####[address] [id number] Lab Director: Estevan Corcoran MD CT LUMBAR [...] leg pain. Follow-up MRI may be helpful. [facility] CONSOLIDATED EXAMINATION: CT OF [...] SOFT TISSUES/RETROPERITONEUM: No paraspinal mass is seen. [facility] Boyd Beatty MD [...] leg pain. Follow-up MRI may be helpful. [employer] Work Phone: Radiology Study observation (narrative) [facility] Work Phone: CT LUMBAR SPINE WO CONTRASTO rdered By: Boyd Beatty on 08-19-2021 [employer] [facility] Work Phone: Vital Signs Date Time Vital Sign Value Performing Clinician Elena melton 06-12-2023 10:05-0400 Body height 165.1 cm Rohit Metzger MD [facility] 06-12-2023 10:05-0400 Body mass index (BMI) [Ratio] 38.94 kg/m2 Rohit Metzger MD Work Phone: [facility] 06-12-2023 10:05-0400 Body weight 106.14 kg Rohit Metzger MD Work Phone: [facility] 05-16-2023 13:48-0500 Body height 165.1 cm Rohit Metzger MD Work Phone: [facility] 05-16-2023 13:48-0500 Body mass index (BMI) [Ratio] 38.94 kg/m2 Rohit Metzger MD Work Phone: [facility] 05-16-2023 13:48-0500 Body weight 106.14 kg Rohit Metzger MD Work Phone: [facility] 01-02-2023 10:00-0400 Body height 162.56 cm Johnathon Winter Other [facility] Other 01-02-2023 10:00-0400 Body mass index (BMI) [Ratio] 42.91 kg/m2 Johnathon Winter Other [facility] Other 01-02-2023 10:00-0400 Body weight 113.4 kg Johnathon Winter Other [facility] Other 01-02-2023 10:00-0400 Diastolic blood pressure 82 mm[Hg] Johnathon Winter Other [facility] Other 01-02-2023 10:00-0400 Systolic blood pressure 126 mm[Hg] Johnathon Winter Other [facility] Other 2022 11:00-0400 Body height 162.56 cm Johnathon Winter Other [facility] Other 2022 11:00-0400 Body mass index (BMI) [Ratio] 44.56 kg/m2 Johnathon Winter Other [facility] Other 2022 11:00-0400 Body weight 117.75 kg Johnathon Winter Other [facility] Other 2022 11:00-0400 Diastolic blood pressure 101 mm[Hg] Johnathon Winter Other [facility] Other 2022 11:00-0400 SaO2% (BldA) [Mass fraction] 100 % Johnathon Winter Other [facility] Other 2022 11:00-0400 Systolic blood pressure 138 mm[Hg] Johnathon Winter Other [facility] Other 10-11-2022 18:45-0400 Body height 165.1 cm Roxie Garcia MD Work Phone: [employer] 10-11-2022 18:45-0400 Body mass index (BMI) [Ratio] 43.93 kg/m2 Roxie Garcia MD Work Phone: [employer] 10-11-2022 18:45-0400 Body temperature 99 [degF] Roxie Garcia MD Work Phone: [employer] 10-11-2022 18:45-0400 Body weight 119.75 kg Roxie Garcia MD Work Phone: [employer] 10-11-2022 18:45-0400 Diastolic blood pressure 108 mm[Hg] Roxie Garcia MD Work Phone: [employer] 10-11-2022 18:45-0400 Heart rate 87 /min Roxie Garcia MD Work Phone: [employer] 10-11-2022 18:45-0400 Respiratory rate 16 /min Roxie Garcia MD Work Phone: [employer] 10-11-2022 18:45-0400 SaO2% (BldA) [Mass fraction] 98 % Roxie Garcia MD Work Phone: [facility] [employer] [facility] [employer] 10-11-2022 18:45-0400 Systolic blood pressure 160 mm[Hg] Roxie Garcia MD Work Phone: [facility] [employer] 01-03-2022 13:54-0400 Diastolic blood pressure 95 mm[Hg] Teo Morean DO [facility] [employer] 01-03-2022 13:54-0400 Heart rate 61 /min Teo Froylanfman DO [facility] [employer] 01-03-2022 13:54-0400 SaO2% (BldA) [Mass fraction] 100 % Teo Morean DO [facility] [employer] 01-03-2022 13:54-0400 Systolic blood pressure 142 mm[Hg] Teo Agueroan DO [facility] [employer] 01-03-2022 11:46-0400 Body height 165.1 cm Teo Froylanfman DO [facility] [employer] 01-03-2022 11:46-0400 Body mass index (BMI) [Ratio] 44.1 kg/m2 Teo Froylanfman DO [facility] [employer] 01-03-2022 11:46-0400 Body temperature 97.7 [degF] Teo Agueroan DO [facility] [employer] 01-03-2022 11:46-0400 Body weight 120.2 kg Teo Thomas DO [facility] [employer] 01-03-2022 11:46-0400 Respiratory rate 16 /min Teo Froylanfman DO [facility] [employer] 08-19-2021 18:03-0400 Diastolic blood pressure 98 mm[Hg] Radha Sanders MD Work Phone: [facility] [email or web address] 08-19-2021 18:03-0400 Heart rate 92 /min Radha Sanders MD Work Phone: [facility] [email or web address] 08-19-2021 18:03-0400 Respiratory rate 16 /min Radha Sanders MD Work Phone: [facility] [email or web address] 08-19-2021 18:03-0400 SaO2% (BldA) [Mass fraction] 96 % Radha Sanders MD Work Phone: [facility] 08-19-2021 18:03-0400 Systolic blood pressure 145 mm[Hg] Radha Sanders MD Work Phone: [facility] 08-19-2021 16:28-0400 Body height 165.1 cm Radha Sanders MD Work Phone: [facility] 08-19-2021 16:28-0400 Body mass index (BMI) [Ratio] 45.76 kg/m2 Radha Sanders MD Work Phone: [facility] 08-19-2021 16:28-040 Body temperature 98.6 [degF] Radha Sanders MD Work Phone: [facility] 08-19-2021 16:28-0400 Body weight 124.74 kg Radha Sanders MD Work Phone: [facility] Encounters Encounter Date Encounter Type Care Provider Facility Start: 07-19-2023 End: 07-19-2023 ambulatory SANJEEV GEORGINA Not Available Start: 07-17-2023 End: 07-18-2023 ambulatory Christiano Rivera MD Facility:[facility] Start: 06-26-2023 End: 06-27-2023 ambulatory Bhavin Montgomery MD Facility:[facility] Start: 06-15-2023 End: 06-15-2023 ambulatory SANJEEV GEORGINA Not Available Start: 06-12-2023 End: 06-12-[address] 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) Start: 06-06-2023 [facility] Start: 05-24-2023 Orders Only Reny Mille r COTTON CONVERTER-TOBACCO CURER Work Phone: [facility] Comment on above: Herniated lumbar int ervertebral disc (Primary Dx); Lumbar radiculopathy, chronic Start: 05-23-2023 End: 05-23-2023 ambulatory Tee Peterson Facility:[facility] Start: 05-23-2023 End: 05-23-2023 ambulatory MD Tee Peterson Work Phone: [facility] Work Phone: Start: 05-23-2023 End: 05-23-2023 Departed Referred MD Tee Peterson Work Phone: [facility] Start: 05-19-2023 End: 05-20-2023 ambulatory [facility] Start: 05-16-2023 End: 05-16-[address] [facility] Start: 05-16-2023 End: 05-16-2023 Office outpatient new 30 minutes Rohit Smith MD Work Phone: [facility] Comment on above: 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); Finger injury, right, initial encounter Start: 05-15-2023 Orders Only Reny Read yen COTTON CONVERTER-TOBACCO CURER Work Phone: [facility] Comment on above: Herniated lumbar int ervertebral disc (Primary Dx) Start: 05-10-2023 End: 05-10-2023 ambulatory Johnathon Winter Other [facility] [employer] Other Start: 05-10-2023 Encounter [address] kriss Winter [facility] Start: 05-10-2023 Non-patient / Non-visit MD Jones Work Phone: [facility] [employer] Work Phone: Start: 05-04-2023 End: 05-05-2023 ambulatory [facility] Start: 05-04-2023 End: 05-04-2023 Office outpatient visit 10 minutes Oswaldo Dee SPOOL TENDER Work Phone: [facility] Comment on above: 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); Pain in finger of right hand Start: 05-01-2023 End: 05-01-2023 ambulatory SANJEEV LOPEZ Not Available Start: 04-19-2023 End: 04-19-2023 ambulatory Scottie Lyn Other [facility] Other Start: 04-19-2023 Telephone encounter Scottie Lyn [facility] Start: 04-14-2023 End: 04-14-2023 Orders Only Smalls Rodriguez [facility] Comment on above: Back pain, unspecifi ed back location, unspecified back pain laterality, unspecified chronicity (Primary Dx) Start: 04-12-2023 End: 04-12-2023 ambulatory Johnathon Winter Other [facility] Other Start: 04-12-2023 Telephone [address]athon Winter [facility] Start: 04-11-2023 End: 04-11-2023 ambulatory Johnathon Winter Other [facility] Other Start: 04-11-2023 Telephone encounter Johnathon Winter [facility] Start: 04-10-2023 End: 04-10-2023 ambulatory Johnathon Winter Other [facility] Other Start: 04-10-2023 Encounter [address] kriss Winter [facility] Start: 03-16-2023 End: 03-16-2023 ambulatory OSWALDO DEE Not Available Start: 03-09-2023 End: 03-09-2023 ambulatory Sanchez DICKEY Facility:[facility] Start: 01-30-2023 End: 01-30-2023 ambulatory Johnathon Winter Other [facility] Other Start: 01-30-2023 Telephone encounter Johnathon Winter [facility] Start: 01-02-2023 End: 01-02-2023 ambulatory Johnathon Winter Other [facility] Other Start: 01-02-2023 Office outpatient vi sit [address] [facility] Start: 12-09-2022 End: 12-09-2022 ambulatory Johnathon Winter Other [facility] Other Start: 12-09-2022 Telephone encounter Johnathon Winter [facility] Start: 12-08-2022 End: 12-08-2022 ambulatory Johnathon Winter Other [facility] Other Start: 12-08-2022 Telephone encounter Johnathon Winter [facility] Start: 2022 End: 2022 ambulatory Johnathon Winter Other [facility] Other Start: 2022 Office outpatient ne w [address] [facility] Start: 10-11-2022 End: 10-11-2022 Emergency department patient visit JOHNATHON WINTER [facility] Start: 10-11-2022 End: 10-11-2022 Emergency department patient visit Roxie Garcia MD Work Phone: [facility] Comment on above: Sprain of right ankl e, unspecified ligament, initial encounter (Primary Dx) Start: 07-11-2022 End: 07-11-[address] SANJEEV LOPEZ . Facility: Start: 04-29-2022 End: 04-30-[address] SANJEEV LOPEZ . Facility: Start: 04-08-2022 End: 04-08-2022 ambulatory Mary Díaz Facility:[facility] Start: 02-16-2022 End: 02-16-2022 Emergency department patient visit JOHNATHON WINTER [facility] Start: 01-03-2022 End: 01-03-2022 Emergency department patient visit JOHNATHON WINTER [facility] Start: 01-03-2022 End: 01-03-2022 Emergency department patient visit Teo Thomas DO [facility] ED Comment on above: Gastroenteritis (Neetu emil Dx) Start: 08-19-2021 End: 08-19-2021 Emergency department patient visit Radha Sanders MD Work Phone: [facility] ED Comment on above: Herniated lumbar int ervertebral disc (Primary Dx) Procedures Date Procedure Procedure Detail Performing Clinician Start: 06-12-2023 Follow-up visit Follow-up ROHIT SHARIF UGHTNHAN Metzger Start: 10-11-2022 Radex ankle complete minimum 3 views Bailee Lew COTTON CONVERTER - TOBACCO CURER Work Phone: Start: 01-03-2022 Urinalysis microscop ic only Zachariah Cristian COTTON CONVERTER - SPOOL TENDER Work Phone: Start: 01-03-2022 Urnls dip stick/tabl et rgnt auto w/o microscopy Zachariah Cristian COTTON CONVERTER - SPOOL TENDER Work Phone: Start: 01-03-2022 Ct abdomen & pelvis w/contrast material Zachariah Foster COTTON CONVERTER - SPOOL TENDER Work Phone: Start: 01-03-2022 Assay of lipase Zachariah Cristian COTTON CONVERTER - SPOOL TENDER Work Phone: Start: 12-01-2021 Adult depression screening assessment Serina ALVARADO Start: 08-19-2021 Ct lumbar spine w/o contrast material Radha Sanders MD Work Phone: Plan of Treatment Date Care Activity Detail Author Start: 06-11-2024 Adult BMI Screening Adult BMI Screen ing [facility] Start: 06-11-2024 Tobacco Screening Tobacco Screening [facility] Start: 05-16-2024 Adult BMI Screening Adult BMI Screen ing [facility] Start: 05-16-2024 Tobacco Screening Tobacco Screening [facility] Start: 05-08-2024 Adult BMI Screening Adult BMI Screen ing [facility] Start: 05-08-2024 Tobacco Screening Tobacco Screening [facility] Start: 04-14-2024 Adult BMI Screening Adult BMI Screen ing [facility] Start: 04-14-2024 Tobacco Screening Tobacco Screening [facility] Start: 07-19-2023 End: 07-19-2023 Patient encounter procedure 07/19/2023 1:45 PM EDT Office Visit [facility] [address] [place] [address] Vishal Martin DO [address] [place] [address] [facility] Start: 07-17-2023 End: 07-17-2023 Patient encounter procedure 07/17/2023 10:00 AM EDT Office Visit [facility] [address] [place] [id number] Sanjeev Lopez DO [address] [place] [address] [facility] Start: 06-12-2023 End: 06-12-2023 Patient encounter procedure 06/12/2023 10:05 AM EDT Office Visit [facility] [address] [place] [address] Rohit Smith MD [address] [place] [address] [facility] Start: 05-19-2023 End: 05-19-2023 Patient encounter procedure 05/19/2023 10:15 AM EST Appointment [facility] [address] [facility] [place] [id number] [facility] Start: 05-16-2023 End: 05-16-2023 Patient encounter procedure 05/16/2023 1:45 PM EST Office Visit [facility] [address] [place] [address] Rohit Smith MD [address] [place] [address] [facility] Start: 05-08-2023 End: 05-08-2023 Patient encounter procedure 05/08/2023 1:30 PM EST Office Visit [facility] [address] [place] [address] Reny No, COTTON CONVERTER-TOBACCO CURER [address] [facility] [address] [place] [address] [facility] Start: 04-14-2023 End: 04-14-2024 XR Lumbar spine Views W flexion and W extension X-ray spine lumbar ap, lateral, flexion and extension only Imaging Routine Back pain, unspecified back location, unspecified back pain laterality, unspecified chronicity Expected: 04/14/2023, Expires: 04/14/2024 [facility] Work Phone: Comment on above: Expected: 04/14/2023 , Expires: 04/14/2024 Start: 12-02-2022 Influenza vaccination Influenza Vacc ine [facility] Start: 12-01-2022 Depression Screening Depression Scre ening [facility] Start: 11-01-2022 Influenza vaccination Flu vaccine (# 1) [facility] Start: 09-03-2022 Adult BMI Follow Up Plan Adult BMI Follow Up Plan [facility] Start: 12-02-2021 Influenza vaccination Flu vacc ine (Season Ended) [facility] Start: 11-01-2021 Influenza vaccination Flu vaccine (# 1) [facility] Start: 2017 Diabetes screen Diabetes screen [facility] Start: 2012 Screening for malignant neoplasm of cervix [facility] Start: 12-01-2003 Screening for malignant neoplasm of cervix Pap smear [facility] Start: 2001 DTaP,Tdap and Td Vaccines (1 - Tdap) DTaP,Tdap and Td Vaccines (1 - Tdap) [facility] Start: 2001 DTaP/Tdap/Td vaccine (1 - Tdap) DTaP/Tdap/Td vaccine (1 - Tdap) [facility] Start: 2000 Hepatitis C screening Hepatitis C sc apriln [facility] Start: 1994 Depression Screen Depression Screen [facility] Start: 12-01-1987 COVID-19 Vaccine (1) COVID-19 Vaccin e (1) [facility] Start: 12-01-1983 Varicella vaccine (1 of 2 - 2-dose childhood series) Varicella vaccine (1 of 2 - 2-dose childhood series) [facility] Start: 06-01-1983 COVID-19 Vaccine (#1) COVID-19 Vacci ne (#1) GIANA PEREZ [facility] Payers Date Payer Category Payer Self-pay 2022 Unknown [id number] 2022 Unknown [id number] 2020 Unknown [id number] 1.2.8 [id number] 1982 Unknown [id number] 2.16.84 [id number] 1982 Unknown [id number] 2.16.84 0.1.145178.3.579.2.593 1982 Unknown [id number] 2.16. 840.1.306222.3.579.2.175 1982 Unknown [id number] 2.16. 840.1.109904.3.579.2.175 1982 Unknown [id number] 2.16. 840.1.462698.3.579.2.175 1982 Unknown [id number] 2.16.8 40.1.784030.3.579.2.718 1982 Unknown [id number] 2.16.8 40.1.517485.3.579.2.718 1982 Unknown [id number] 2.16.8 40.1.675502.3.579.2.1286 1982 Unknown [id number] 2.16.8 40.1.091522.3.579.2.1286 1982 Unknown [id number] 2.16.8 40.1.823048.3.579.2.1286 1982 Unknown [id number] 2.16.8 40.1.069734.3.579.2.1286 1982 Unknown [id number] 2.16.8 40.1.323638.3.579.2.1286 1982 Unknown [id number] 2.16.84 0.1.338639.3.579.2.1286 1982 Unknown [id number] 2.16.84 0.1.995325.3.579.2.9 1982 Unknown [id number] 2.16.84 0.1.194196.3.579.2.9 1982 Unknown [id number] 2.16.84 0.1.441595.3.579.2.1259 1982 Unknown [id number] 2.16.84 0.1.014474.3.579.2.9 1982 Unknown [id number] 2.16.840 .1.880551.3.579.2.9 1982 Unknown [id number] 2.16. 840.1.475677.3.579.2.196 1982 Unknown [id number] 2.16. [id number] 1959 Unknown [id number] Social History Date Type Detail Facility Start: 06-15-2015 End: 03-31-2022 Tobacco smoking status [facility] Never smoked tobacco [employer] Start: 06-15-2015 End: 03-31-2022 Tobacco use and exposure Smokeless tobacco non-user [employer] Work Phone: Start: 08-19-2021 End: 06-12-2023 Alcohol intake Current non-drinker of alcohol (finding) [employer] Phone: Start: 05-14-2020 End: 08-19-2021 [facility] Start: 06-15-2015 History SDOH Alcohol Comment rarely [employer] Phone: Start: 1980 Sex Assigned At Not on file [employer] Phone: Start: 08-09-2021 End: 01-03-2022 Exposure to SARS-CoV-2 (event) Not sure [employer] Phone: History of tobacco use Passive smoker [facility] [employer] Phone: Start: 05-14-2020 End: 04-14-2023 Sex Assigned At [facility] Adolescent depressio n screening assessment 0 [facility] Start: 05-04-2023 Alcohol intake Ex-drinker (finding) [facility] Start: 10-09-2022 Alcohol Comment Alcohol: 1 or 2 drinks on typical day/monthly or less. Caffeine: 1-2 cups/day tea [facility] Start: 1980 Sex Assigned At Female [facility] Start: 09-21-2022 Gender identity Identifies as female gender (finding) [facility] Start: 09-21-2022 Sexual orientation Heterosexual (finding) [facility] Clinical Notes 08-19-2021 to 06-12-2023 Rohit Metzger [...] take another few months to subside. Recommended [id number] pain relievers as needed. She is content [...] of the aforementioned history prepared by the [facility] practice provider, and I personally performed the [...] any severe symptoms. documented [facility] this encounter [facility] 05-16-2023 History of Present illness Narrative [facility] Chief Complaint: [...] a snap. She initially [facility] up with [facility] and was diagnosed with right [...] External notes reviewed: [facility]. Review of test/study reports: I reviewed an x-ray obtained of the right ring finger. There were no acute osseous abnormality such as fracture dislocation. My personal interpretation of tests: I personally viewed and interpreted X-rays from [facility] as above. Xrays done in office today: None. Assessment: 1. Mallet deformity of right ring finger - [facility] - [place], [place] 2. Finger injury, right, initial encounter - [facility] - [place], [place] Plan: I discussed treatment options with [...] with her flexion. documented in this encounter [facility] 05-10-2023 Evaluation note Encounter Date Diagnosis Assessment Notes May, Adult ADHD (attention deficit hyperactivity disorder) (ICD-10 - F90.9) [facility] Other 02-01-2024 History of Present illness Narrative* [...] finger for about 2 weeks. Went to [facility] due to having numbness in finger and unable to straighten it. Had XR at . On 03/13, pt went to [facility] and had another XR. Unable to get into hand specialist at [facility] until May 16. Continues to have [...] crooked. PT is RT handed Prior TX: [facility] 03/09/23, XR, [facility], [facility], XR 03/13/23, Ice, Heat, IBU, [facility] ALLERGIES: No Known Allergies HOME MEDICATIONS: Current Outpatient Medications Medication Instructions amphetamine-dextroamphetamine (Adderall) 20 MG tablet 1 TABLET ORALLY MID DAY 30 DAYS cyclobenzaprine (Flexeril) 10 MG tablet PLEASE SEE ATTACHED FOR DETAILED DIRECTIONS fluconazole (DIFLUCAN) 100 mg, Oral, Daily nystatin (Mycostatin) [id number] UNIT/GM powder APPLY TO AFFECTED AREA TOPICALLY [...] normal Pronation: normal Supination: normal Muscle Strength Fiberglass Technician: 3/5 Other Erythema: absent Pulse: present Comments: [...] develop for requiring urgent evaluation. Oswaldo Dee COTTON CONVERTER-TOBACCO CURER [id number] Evaluation note* Encounter Date Diagnosis Assessment Notes Treatment Notes Treatment Clinical Notes Apr, Adult ADHD (attentio n deficit hyperactivity disorder) (ICD-10 - F90.9) [facility] Other 01-10-2024 Evaluation note* Encounter Date Diagnosis Assessment Notes Treatment Notes Treatment Clinical Notes Apr, Adult ADHD (attentio n deficit hyperactivity disorder) (ICD-10 - F90.9) [facility] Other 01-09-2024 Evaluation note* Encounter Date Diagnosis Assessment Notes Treatment Notes Treatment Clinical Notes Apr, Adult ADHD (attentio n deficit hyperactivity disorder) (ICD-10 - F90.9) [facility] Other 01-08-2024 Evaluation note* Encounter Date Diagnosis Assessment Notes Treatment Notes Treatment Clinical Notes Apr, Adult ADHD (attentio n deficit hyperactivity disorder) (ICD-10 - F90.9) [facility] Other 12-07-2023 NotePatient Education Materials Follows: Mallet [...] or lying down. General instructions ? Take bllv-cou-quxhtyf and prescription medicines only as told by [...] by your health care p (more contentnot included)...Jennifer [id number] Evaluation note * Encounter Date Diagnosis Assessment Notes Treatment Notes Treatment Clinical Notes Jan, Adult ADHD (attentio n deficit hyperactivity disorder) (ICD-10 - F90.9) [facility] Other 10-02-2023 Evaluation note* Encounter Date Diagnosis [...] in 3 months or sooner if needed. [facility] Other 09-08-2023 Evaluation note* Encounter Date Diagnosis Assessment Notes Treatment Notes Treatment Clinical Notes Dec, Adult ADHD (attentio n deficit hyperactivity disorder) (ICD-10 - F90.9) [facility] Other 09-07-2023 Evaluation note* Encounter Date Diagnosis Assessment Notes Treatment Notes Treatment Clinical Notes Dec, Adult ADHD (attentio n deficit hyperactivity disorder) (ICD-10 - F90.9) [facility] Other 08-30-2023 Evaluation note* Encounter Date Diagnosis [...] Cutaneous candidiasis (ICD-10 - B37.2) Refilled diflucan. [facility] Other 07-11-2023 Hospital Discharge instructions* Discharge Instructions* RIZWAN Dietz CNP - 10/11/2022 8:08 PM EDT Please call and schedule a follow-up appointment with [facility]. Use an ice pack or bag [...] through Care Everywhere. * RICE: General Info (Lebanese) * Ankle Sprain (Lebanese) [facility] NotePatient Education Materials Follows: Otitis Media, Adult [...] Follow these instructions at home: ? Take efpj-ocf-skcfhqs and prescription medicines only as told by [...] provider. Document Revised: 06/28/2021 Document Reviewed: 06/28/2021 [employer] Patient Education ? 2021 [id number] Hospital Discharge instructions* Instructions* Radha Sanders MD - 08/19/2021 May use ice or heat, whichever feels better. May use Thurston for pain. Prednisone as directed. Follow-up with [...] a follow up appointment THANK YOU!!! From [facility] On behalf of the Emergency Department staff at [facility], I would like to thank you for giving us the opportunity to address your health care needs and concerns. We hope that during your visit, our service was delivered in a professional and caring manner. Please keep emoquo in mind as we walk with you [...] how we did during your visit at [email or web address] and let us know about your experience * Attachments The following attachments cannot be sent through Care Everywhere. * Herniated Disc (Lebanese) [facility] [email or web address] Work Phone: evaluation note* Diagnosis Herniated lumbar intervertebral disc- Primary Displacement of lumbar intervertebral disc without myelopathy documented in this encounter [facility] [email or web address] Work Phone: evalsdwooz note* Diagnosis Gastroenteritis- Primary Other and unspecified noninfectious gastroenteritis and colitis documented in this encounter [facility] [employer] Work Phone: evaluation note* Diagnosis Sprain of right ankle, unspecified ligament, initial encounter- Primary documented in this encounter [facility]* Diagnosis Back pain, unspecified back location, unspecified back pain laterality, unspecified chronicity- Primary documented in this encounter [facility] [email or web address] SystemEvaluation noteNo InformationNogeneral [facility] [employer] Other Evaluation note* Diagnosis 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 Pain in finger of right hand Pain in soft tissues of limb [facility]* Diagnosis Herniated lumbar intervertebral disc- Primary Displacement of lumbar intervertebral disc without myelopathy documented in this encounter [facility] [email or web address] SystemEvaluation note* Diagnosis 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 Finger injury, right, initial encounter [facility] [email or web address] System[facility]* Diagnosis Herniated lumbar intervertebral disc- Primary Displacement of lumbar intervertebral disc without myelopathy Lumbar radiculopathy, chronic documented in this encounter [facility] [email or web address] SystemEvaluation noteNo assessment information [facility] Work Phone: Evaluation note* Diagnosis Lumbar radiculopathy, chronic- Primary Herniated lumbar intervertebral disc Displacement of lumbar intervertebral disc without myelopathy [facility]* Diagnosis 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 [facility] [email or web address] SystemHistory general Narrative - Reported* Type Description Date Medical History PCOS/insulin resistant Medical History PCOS (polycystic ovarian syndrom e) Medical History Frequent headaches Medical History Gestational diabetes Medical History Prediabetes Surgical History cholecystectomy 2004 Surgical History appendectomy 2006 Surgical History Hospitalization History see surgical hx [facility] Other Hospital Discharge instructions* Attachments The following attachments cannot be sent through Care Everywhere. * [facility] (Lebanese) [facility] Work Phone: InstructionsNot on filedocumented in this encounter [facility] [email or web address] SystemInstructionsNot on filedocumented in this encounter [facility] [email or web address] SystemInstructionsNot on filedocumented in this encounter [facility] [email or web address] SystemInstructionsNot on filedocumented in this encounter [facility] [email or web address] SystemRejuan antonio for referral (narrative)* Consultation (Routine) - Pending Review Specialty Diagnoses / Procedures Referred By Contact Referred To Contact Physical Medicine and Rehabilitation Diagnoses Herniated lumbar intervertebral disc Lumbar radiculopathy, chronic Reny No APRN-CNP [address] [address] [place] [address] Vishal Martin DO [address] [facility] [address] [place] [address] Referral ID Status Reason Start Date Expiration Date Visits Requested Visits Authorized [id number] Pending Review Specialty Services Required 05/24/2023 05/23/2024 [facility] Consultation (Routine) - Pending Review Specialty Diagnoses / Procedures Referred By Contac t Referred To Contact Pain Medicine Diagnoses Lumbar radiculopathy, chronic Herniated lumbar intervertebral disc Reny No COTTON CONVERTER-TOBACCO CURER [address] [place] [address] Davis Silva MD [address] [place] [address] Referral ID Status Reason Start Date Expiration Date V isits Requested Visits Authorized [id number] Pending Review 06/12/2023 06/11/2024 1 1 [facility] [email or web address] System Advance Directives No Advanced Directives Records FoundDocuments on File Type Date Recorded Patient Foam Fabricator Expl anation ACP-Advance Directive ACP-Power of Clinical Trials Manager Summary Purpose Family History No Family History [...] Specialty Diagnoses / Procedures Referred By Angela t Referred To Contact Hand Surgery / Orthopedic Surgery Diagnoses Finger injury, right, initial encounter Sprain of right ring finger, unspecified site of digit, initial encounter Nicole Lockwood, COTTON CONVERTER-TOBACCO CURER [address], [place] [address] Rohit Smith MD [address] [facility] [address] [place] [address] Referral ID Status Reason Start Date Expiration Date Visits Requested Visits Authorized [id number] Pending Review Specialty Services Required 3 03/12/2024 [...] would not scan at bedside. Verified with [facility] prior to administration.) Scheduled Medication Order 01/01/2022 01/02/2022 01/03/2022 0.9 % sodium chloride bolus (COMPLETED) 1,000 mL (8.32 mL/kg), IntraVENous, at 495.9 mL/hr, Administer over 121 Minutes, ONCE, On Mon01/03/22 at 1215, For 1 dose 1215 (New Bag - Prov ider: Flor Garcia, ELVIS)1359 (Stopped - Provider: Flor Garcia RN) 0.9 [...] Oral, ONCE, 1 dose, On Mon10/11/22 at 2000, Maximum dose of acetaminophen is 4000 mg from all sources in 24 hours. 2052 (Given - Provid er: Becky Toussaint RN) ketorolac (TORADOL) injection 30 mg (COMPLETED) 30 mg, IntraMUSCular, ONCE, 1 dose, On Mon10/11/22 at 1999, Do not administer for more than 5 days. 2051 (Given - Provid er: Becky Toussaint RN) Care Teams (unrecognized sec tion and content) Precision Honer Relationship Specialty Start Date End Date Johnathon Winter MD PCP - General Family Medicine 03/08/16 Precision Honer Relationship Specialty Start Date End Date Johnathon Winter MD PCP - General Family Medicine 03/08/16 Precision Honer Relationship Specialty Start Date End Date Johnathon Winter MD PCP - General Family Medicine 03/08/16 Precision Honer Relationship Specialty Start Date End Date Johnathon Winter MD [address] [place] [id number] PCP - General 03/13/23 Precision Honer Relationship Specialty Start [place] [address] [place] [id number] PCP - General Family Medicine 12/12/22 Precision Honer Relationship Specialty Start Date End Date Johnathon Winter MD [address] [place] [id number] PCP - General 03/13/23 Precision Honer Relationship Specialty Start Date End Date Johnathon Winter MD [address] [place] [id number] PCP - General 03/13/23 Precision Honer Relationship Specialty Start Date End Date Johnathon Winter MD [address] [place] [id number] PCP - General 03/13/23 Team Status: Active Member Role Status Dates Johnathon Winetr MD Primary Care Provide r, Attending Provider Active Start: May 10, 2023 Team Status: Inactive Member Role Status Dates Tee Peterson MD Attending Provider Active Start: May 23, 2023 End: May 23, 2023 Precision Honer Relationship Specialty Start Date End Date Johnathon Winter MD [address] [place] [id number] PCP - General 03/13/23 INFORMATION SOURCE (unrecogn ized section and content) DATE CREATED AUTHOR 07/17/2022 [facility] DATE CREATED AUTHOR AUTHOR'S ORGANIZ ATION 10/12/2022 [facility] DATE CREATED AUTHOR AUTHOR'S ORGANIZ ATION 03/11/2023 [facility] DATE CREATED AUTHOR AUTHOR'S ORGANIZ ATION 06/01/2023 [facility] DATE CREATED AUTHOR AUTHOR'S ORGANIZ ATION 06/07/2023 [facility] DATE CREATED AUTHOR AUTHOR'S ORGANIZ ATION 06/12/2023 [facility] DATE CREATED AUTHOR AUTHOR'S ORGANIZ ATION 07/20/2023 [facility] DATE CREATED AUTHOR AUTHOR'S ORGANIZ ATION 07/26/2023 [facility] Goals (unrecognized section and content) Goals may [...] BE BASED ON THE PRIMARY CLINICAL RECORDS. [facility] [email or web address] [facility]. provides no warranty or guarantee of the accuracy or completeness of information in this document.
[2023-07-31 07:30] LABS: HCG Qualitative NEGATIVE (NEGATIVE)
[2023-07-31 07:32] VITALS: BP 140/100; PULSE 88; TEMP 36.6; O2SAT 100
[2023-07-31 07:40] LABS: Glucometer 101 mg/dL (74-106)
[2023-07-31 08:14] VITALS: BP 167/99; PULSE 74; O2SAT 98
[2023-07-31 08:18] VITALS: BP 158/101; PULSE 73; O2SAT 97
--- NOTE | 2023-07-31 08:18 | W.PM.PROCNOT ---
Date of procedure: 07/31/23 Pre-op diagnosis: Lumbar stenosis with neurogenic claudication Post-op diagnosis: same as pre-op Procedure: Procedure: Bilateral L4-5 transforaminal epidural steroid injection Medications: Bupivacaine 0.25% 2cc, lidocaine 2% 1cc, kenalog 80mg The patient was seen and examined in the preoperative holding area.? Informed consent was obtained and placed on the chart.? Patient was brought to the medical procedure unit and placed in the prone position where a timeout was completed verifying the correct patient, procedure site, position, and planned special equipment using sterile aseptic technique.? Under direct fluoroscopic visualization a 25-gauge Quincke tipped spinal needle was advanced at level left L4-5 to the designated neural foramen where contrast dye was injected to show adequate spread.? There was no evidence of vascular or adverse uptake.? Epidural spread was appreciated.? The above-mentioned injectate was then placed in a 1.5 mL aliquot preceded by negative aspiration.? The needle was removed. The same procedure, at the same level, was completed on the opposite side. ? Patient was taken to the postprocedural recovery area and monitored for an appropriate length of time before found suitable for discharge in the accompaniment of a responsible adult. Anesthesia: Local Surgeon: Christiano Rivera Pathology: none sent Condition: stable Disposition: no change
[2023-07-31] MEDS: IOHEXOL 240 MG/ML - 10 ML VIAL 24 MG INJ (08:20)
[2023-07-31] MEDS: BUPIVACAINE HCL 0.25% PF 25 MG/10 ML VIAL INJ (08:20)
[2023-07-31] MEDS: 0.9 % SODIUM CHLORIDE 10 ML SYRINGE - SALINE FLUSH INJ (08:20)
[2023-07-31] MEDS: LIDOCAINE HCL 2% PF 100 MG/5 ML VIAL 3 ML INJ (08:21)
[2023-07-31] MEDS: TRIAMCINOLONE ACETONIDE 40 MG/ML VIAL 80 MG INJ (08:21)
== END 2023-07-31 08:23 | disposition home or self-care (01) ==
PROVIDERS: PCP Family Medicine; Visit Provider Anesthesiology
DX: M48.062 Spinal stenosis, lumbar region with neurogenic claudication (principal)
CPT/HCPCS: 36415; 64483; 82948; 84703; Q9966

== ENCOUNTER 2023-08-10 10:01 | Outpatient (OUT) | payer BC, SELFPAY ==
--- NOTE | 2023-08-10 10:36 | P.CN_ITS ---
Consult Note: HPI Data of Consult Patient: known to practice within the last 3 years Consult date: 06/26/23 Requesting Physician: Minnie Johnson NP Primary Care Provider: Radha Sanchez MD Consult Narrative Reason for consult: low back, bilateral leg pain Narrative: 42yof who presents for evaluation. notes worsening low back and bilateral lower extremity pain for several years. evaluated by nsg, who did not recommend surgery. imaging shows disc bulging and stenosis at l4-5 and l5-s1. has engaged in >6 weeks of provider directed home exercise program and pt, with no lasting benefit. uses ibuprofen as needed, with limited benefit. denies adverse med side effects. recently underwent bilateral L4-5 TFESI and bilateral L5-S1 TFESI with significant improvement in pain and functional ability ongoing, patient reports first injection was most helpful. Pain today 1/10 constant in low back without radiculopathy, reports it feels muscular in nature. cc:: CC: Minnie Johnson NP Review of Systems 2 ROS0 Status of ROS 10 or more systems reviewed and unremark able except as noted in history and below Musculoskeletal Reports: back pain PFSH PFSH Medical History (Updated 06/26/23 @ 15:30 by Christiano Rivera MD) White coat syndrome with high blood pressure without hypertension ?R03.0 - Elevated blood-pressure reading, without diagnosis of hypertension (ICD-10) Migraines ?G43.909 - Migraine, unspecified, not intractable, without status migrainosus (ICD-10) Metabolic syndrome ?E88.810 - Metabolic syndrome (ICD-10) Insulin resistance ?E88.819 - Insulin resistance, unspecified (ICD-10) History of PCOS ?Z87.42 - Personal history of other diseases of the female genital tract (ICD-10) ADHD ?F90.9 - Attention-deficit hyperactivity disorder, unspecified type (ICD-10) Surgical History S/P breast biopsy, left ?Z98.890 - Other specified postprocedural states (ICD-10) H/O tubal ligation ?Z98.51 - Tubal ligation status (ICD-10) H/O section ?Z98.891 - History of uterine scar from previous surgery (ICD-10) History of cervical cerclage ?Z98.890 - Other specified postprocedural states (ICD-10) Status post appendectomy ?Z90.49 - Acquired absence of other specified parts of digestive tract (ICD- 10) Hx of cholecystectomy ?Z90.49 - Acquired absence of other specified parts of digestive tract (ICD- 10) Meds Home Medications and Allergies Home Medications ?Medication ?Instructions ?Recorded ?Confirmed ?Type dextroamphetamine-amphetamine 20 20 mg PO .evening PRN hyperactivity 05/10/23 07/31/23 History mg tablet (Adderall) ibuprofen 200 mg tablet (Advil) 800 mg PO TID-QID PRN pain 05/10/23 07/31/23 History lisdexamfetamine 50 mg capsule 50 mg PO DAILY 05/10/23 07/31/23 History (Vyvanse) tirzepatide 7.5 mg/0.5 mL 7.5 mg subcut QWEEK 05/10/23 07/31/23 History subcutaneous pen injector (Mounjaro) Allergies Allergy/AdvReac Type Severity Reaction Status Date / Time No Known Drug Allergies Allergy Verified 07/31/23 07:30 Exam Constitutional Documenting provider has reviewed patient's vital signs: yes Common normals: no apparent distress, oriented x3, healthy appearing, alert and well nourished General appearance: cooperative HENMT Common normals: normocephalic, hearing grossly normal bilaterally and moist oral mucous membranes Head and scalp: normocephalic Eye Common normals: PERRL Pupil: PERRL Neck & C-Spine Common normals: full ROM General: normal visual inspection Chest Common normals: inspection of chest normal Respiratory Common normals: normal respiratory effort, no retractions and no use of accessory muscles Back & Pelvis Lumbar spine/lower back: normal to inspection, lumbar ROM normal, pain with ROM and paraspinal muscle tenderness Other: mildly positive facet loading Back image (female): 2 1. Neuro Common normals: oriented x3, CN's II-XII intact bilaterally, moves all extremities, no focal motor deficits, no sensory deficits noted and deep tendon reflexes 2+ bilaterally Sensorium/orientation: alert Motor exam: strength 5/5 throughout and no movement abnormalities noted Psych Common normals: mental status grossly normal, thought process normal, cooperative, affect normal, speech normal and activity/motor behavior normal Speech: normal speech Thought process: normal thought process Results Additional Findings Additional findings: If on a controlled substance or opioids, I have checked an [place]AR[place] report on this patient and there are no aberrancies noted in the prescribing history.??If on a controlled substance or opioid a drug screen was completed and reviewed within the last year, and if there has not been a drug screen completed we ordered one today to monitor higher risk, state monitored pain medication use. As part of providing excellent, safe, comprehensive care, the following was completed at our patient's visit: 1. A medication reconciliation and review to ensure accurate knowledge of current/active medications, including asking our patients to inform us about any ktqj-[id number]-tagwkce medications or herbal remedies/nutritional supplements/alternative remedies. 2. A review to specifically ensure our patients have had annual screening for screening for depression, screening for tobacco use, and screening for unhealthy alcohol use. For concerning screenings had a discussion with the patient, provided patient education, and recommended follow-up with primary care provider when appropriate. If patient noted with a risk of falling, they received education on strength, gait, and balance training to prevent future risk of falling. Assessment and Plan Assessment and Plan (1) Lumbar stenosis with neurogenic claudication: (2) Lumbar disc displacement without myelopathy: Plan continue medications as tolerated continue HEP as tolerated congratulated on weight loss, two upcoming consults with cosmetic surgery and general surgery f/u 3 months, sooner if needed
== END 2023-08-10 10:02 | disposition home or self-care (01) ==
LOC: PM 10:02
PROVIDERS: PCP Family Medicine; Visit Provider Nurse Practitioner
DX: M48.062 Spinal stenosis, lumbar region with neurogenic claudication (principal); M51.26 Other intervertebral disc displacement, lumbar region
CPT/HCPCS: G0463

== ENCOUNTER 2023-10-25 09:04 | Outpatient (OUT) | payer BC, SELFPAY ==
--- NOTE | 2023-10-25 09:06 | US_ITS ---
The [address] [address] Patient Name: CHAR ANN MRN: [id number] date: 1980 Sex: F Assigned Patient Location: [facility] Current Patient Location: LAB Accession/Order Number: [id number] Exam Date: 10/25/2023 09:07 Report Date: 10/25/2023 11:10 At the request of: NICK ERICKSON Procedure: US pelvis w/ transvaginal EXAMINATION: US pelvis w/ transvaginal HISTORY: MENORRHAGIA, PELVIC PAIN COMPARISON: No relevant comparison available. FINDINGS: Transabdominal and transvaginal images The uterus is normal in size, contour and myometrial echotexture measuring 8.6 x 4.4 x 5.4 cm. Anteverted, anteflexed. The endometrium measures 7 mm, normal. The right ovary is normal measuring 3.2 x 2.3 x 3.9 cm. Normal color and Doppler flow. Subcentimeter areas of anechoic echogenicity, follicles. 1.8 cm area of anechoic echogenicity with some low-level echoes likely a cyst. The left ovary is normal in size, contour and echotexture measuring 3.7 x 2.0 x 2.7 cm. Normal color Doppler flow. Subcentimeter areas of anechoic echogenicity, follicles No free fluid US/US pelvis w/ transvaginal IMPRESSION: No acute abnormality Electronically authenticated by: MONSERRAT PALACIOS Date: 10/25/2023 11:10
--- OUTSIDE RECORDS SUMMARY | 2023-10-25 09:19 | XMS_ITS | CCD ---
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 Name Role Phone Johnathon Winter MD Primary [...] Unavailable Johnathon Winter MD Primary Care Provider [phone] JOHNATHON WINTER Primary Care Unavailable ROXIE GARCIA Attending Unavailable JOHNATHON WINTER Primary Care Unavailable SANCHEZ AGUSTIN Attending Unavailable JOHNATHON WINTER Primary Care Unavailable TEO THOMAS Attending Unavailable Johnathon Winter Unavailable Johnathon Winter MD Primary Care Provider Scottie Lyn Unavailable Johnathon Winter MD Primary Care Provider [phone] MD Tee Peterson Attending Provider [phone] Tee Peterson Attending Unavailable Tee Peterson Admitting Unavailable RENY NO Attending Unavailable MAGGY JOHNATHON E Referring Unavailable WINTER, JOHNATHON E Primary Care Unavailable NO, RENY Referring Unavailable WINTER, JOHNATHON E Primary Care Unavailable NO, RENY Referring Unavailable WINTER, JOHNATHON E Primary Care Unavailable ROHIT LARKIN Attending Unavailable MAGGY JOHNATHON E Referring Unavailable WINTER, JOHNATHON E Primary Care Unavailable WINTER JOHNATHON E Referring Unavailable WINTER, JOHNATHON E Primary Care Unavailable KAL MARTINEZ Attending Unavailable ROHIT LARKIN Attending Unavailable ASMITA MONTGOMERY Referring Unavailable WINTER JOHNATHON E Primary Care Unavailable SANJEEV LOPEZ Attending Unavailable OSWALDO DEE Attending Unavailable OSWALDO DEE Attending Unavailable SANJEEV LOPEZ Attending Unavailable SANJEEV LOPEZ Attending Unavailable ROBERT URRUTIA Attending Unavailable SANJEEV LOPEZ Referring Unavailable Bhavin Montgomery MD Primary Care Unavailable Miguel SÁNCHEZ, Christiano Mcgovern Attending Unavailable Miguel SÁNCHEZ, Christiano Mcgovern Attending Unavailable Bhavin Montgomery MD Primary Care Unavailable Miguel SÁNCHEZ, Christiano Mcgovern Attending Unavailable Felicia SÁNCHEZ, Bhavin Primary Care Unavailable KELI Resendez Admitting Unavailable Johnathon Winter Primary Care Unavailable KELI Resendez Attending Unavailable Johnathon Winter Primary Care Unavailable Sanchez John Attending Unavaila Sanchez Parham Admitting Unavaila ble Medications Current Medications Medication Drug Class(es) Dates [...] 05/01/2023 05/15/2023 [facility] Fluconazole 100 MG 1 [...] Start: 2022 take 1 capsule by mo [facility] every twenty-four hours Vyvanse 30 MG 1 [...] once a week. 0 02/27/2023 Active nystatin 706920 unt/ml topical cream (9 sources) Polyene Antifungal Start: 05-01-2023 End: 04-30-2024 nystatin (Mycostatin) cream Indications: Follow-up encounter involving medication , Superficial skin infection Apply topically 2 (two) times a day 30 g 3 05/01/2023 04/30/2024 Active Start: 04-14-2023 nystatin (MYCO STATIN) powder Apply 1 Application topically in the morning and 1 Application before bedtime. 0 04/14/2023 Active Start: 04-14-2023 nystatin (Myco statin) [id number] UNIT/GM powder Indications: Skin irritation APPLY TO [...] days 20 tablet 0 08/19/2021 08/29/2021 Active Ffs-Obj-CM-Fish Oil ([facility] GUMMY) 0.4-113.5 MG CHEW (2 sources) Lek-Zwi-OC-Fish Oil ([facility] GUMMY) 0.4-113.5 MG CHEW Take [...] Test Name Value Interpretation Reference Range Facility Coding Summaryon 09-01-2023 Coding Summary HTMLBase 64 WqqypsvvNUe1bCt+PGhlYWQ+ LW2AYLUwB13yfRXleW2vE1EQ TElOSywgQVBQTElOSyIgbmFt YR9noRToTGDz IC8+FK4uUXWmXmuyvJHzx3K7 wPA2K65kiy6lYQpuaVU8GUSq NmPwnfiut8waxQa9SBzwVzbt OyBt AAGejE08MKE5fM67Fu27pHAq uXCam7pjpWl5SxRtTXLaCEB3 uMffVVqph9LhRZQiG38imKLi c2U6 YHCeiEekuVQaObLcpSE4lI4c ZVrrlwazw1oshdbpCyt9rx15 zWDts1V2hPN4G0WfswN0HKRc bGQg DumpuDXWlI2yaxzvy1upjcar XhGuTLJhMXv4WZq1KTEulSrt NsZaUZ74RNG3VSGqguZkD4Yi LWFs cBvzQwR0q6N5Tp4XL1YHFvkb R4YBVTDVNShqeRQ+JJ01ij07 O7RrUhuyFhi8ITRnMTT4bEE7 aD0n HVHcEJbry2K5nXO2H1KfifCw kn8og5lqYXCpMDznM11tuMGd i6I8DKHqtOJ2CGVtlXpsWpXd aG93 Oyc+KDUbfHpoi4BhEhwpe4ey z2jrnXb3WyjeTUMebaKeaSmy PDO5o9OsRr4jPKTmaDV8dMG9 aD0i ZtEpMvH8DYhsE855DcVsbTUq NenmF28vV3JneTP+PHRyPjx0 BAMxcXxgHA9oT0YdKZGifcrs bGVm hOnkZJ7nHWTegldmUIJjmI4f FGMwQ9l4DkDqWaM5BNonT6Lp SDGosudlLn87nD2uYxEvLfM6 MGlu E4NsxyI5MEAzsCJzCYjkDRF0 V59zk5Q8IYEnZUCrVNE4mTL9 rC5bfSmidgwswWQveKeinaFp dGlj FEpeUAgbF448QLFdoAqxMrFf ZGluZyBEYXRlOiAgMDUvMzEv MjAyNDwvdGQ+MYUfHAY7uSin PSAn sPHhVUaaDl9whKfvuAiqWP4n YIOkbszxLEQcxT9dQSFerOPb vXaxBU2qVIUcghxol946ZqMk MHB0 MKAhoDWgG5KayB6hIrHvLOTg JWTlX1HtaTEsVZdmX886QDof YhO7XJDwspCmR6QbNIKyuNcx OiB0 q0Z4Ka4Nt9CelbgkD7SgbGNk BuRgAkcgYXy1M1LjUpypxHZ+ EE68IVItLT94BWa2PII7oJze PSdi VLOpJ2VwaI7yXjIwRUFdUQNt Oyc+PHRhYmxlIHdpZHRoPScx NUNkPqCqkWpuPB6tPu9sHNQe LWNv wYtkuSMdYrRwc7bcIXMyDLaq NY3kmAymZ4CvmFN0GXJdt6l7 Bd51I96gF1XrvPD+PGNvbCB3 aWR0 lR8dUiDoXtY3KTziW978XqKj gPGbXwjpq3jdl6keoQu8BsB3 IPWhyjEgnDdbFDK3v2JcIp51 Y29s IHdpZHRoPSIxNSUiIHZhbGln mj7ksX2zJd8+BONhxSG1wKX4 qN3aCfMdZkS2UOyyG979HvDo cCIv Sxxjj7wpr2uqhYf2OrKvAPDp lkQifOzqKQG0d1YjUo03S0Kj tAguv2YsBwk1bg25mFCaw1G3 bGU9 Y6FdUVNdwkccbPPnvNecDM6n KBUbduxsUETjhL1oWKYkL9l2 KoQyTlR1TUwpG2IttyE7KCOg bGQg PMQawAACoW0oaypxy5yvoyet CuBfZIRsYAu7QNg3HBBsgPbr IgYwMOY6NtM9MCB9kNDfbG4u bGln adtfgK7eNqv+VIH5uRXxyNHM VV2cRjoalJA+BOPbNPI6vKct WZrkZDRhyR8bZGTmO6p6BkOr LjA1 NAlpD9CwgfK7DXXopIPgSAMj oBEOsE5qryvqo6kwowkhQyPn IXAgIZt8FRl3QYLlcHnlRtGv ZWZ0 XyW9IMZ4zEVroH1joThlxtyy mP1jKmp+SpuslKdjNWC1JSb2 Q8McMnq0CZOvbPpiEM3upQNe ZGlu Dh9npGutaOxtGV2hYKFwnrpf o769IrWyx4dcOMZjhIBxUBpl RHB9A34ju7N0AQPjTHRcMCH6 dGV4 eK5cuTggoxwcyNCxlRypdsUr dUnnTTglRBniD009IFLgjMjn CtPqCRf7K6KcCzw0YSJgpEcd ZT0n rZEmWQluKc3beVvkzPjzOR0w KHNrlkzhp051RbUhm8zdGVLf sTElZFzoNLL7I18rm5B9HDXm MDAw OBJ5eDJ2pY5xvOnyebymmJSf aKiykgZzkBirQXymTGjjU950 OFIupGycEaYuxGp0D3VnHmd4 ZCBz tVkcAS4hySLbPLmmTm5vhMqs tLenKB0qTWDlsqpps791RgWf s3teAZCmoUWsBEmlDBY2H75i b3I6 KOHfJGRySXL6yJN7nR8xeWgv bjogbGVmdDsgdmVydGljYWwt KYqkC309UHTfgGysXgUdwEmq bnQg GMthBSh7F6HmKxwitDR+PC90 QUKzWV35rSBnkMDtc1twcFa5 QgNfTJNkXWJ3yVjkXMfzn5Vo ZXIt C55rxBQup7V7AZQxjAqdlTTc KzLceTP1wO1nSVcvcmpcw1wi ebyxVopdq4msui32fY51P63m IHdp FVPcPXJaJEHiFYIvcLagbh9d oP1zUo0+CNSgtWM0gCC3eA2e BIRsShF5YRvsY938UiSdjGYm Pjxj d5kup7iweNo2HeL3ZNEailVp nSlwLIQ0a7WfRc10T96cQSyd GMRgTTFxIGPvDCKviVlgxf8n dG9w Ii8+KLQknAR4nWJ6rK6uUvEh ZeZ2ADquN313JoTzrNRyIwwj E54tO1JzpCS+VYVdBgr7ILCq dHls QA7pfKPjQSnhJr1lVOZ5KwYr YzCvQGyfW8QkCWUdtyguzted cNQ1WCIxTLZdaJ60Wa9exCpq MTBw sCWWcX2ghmkjp5wuvzmnCwJp QSUwZUs3KJu2WDLztUlkKfMo MMG6LeR4ENG8qDFzoV0quYth bjog zF9vA4GnZLIjhfowKf62xW3y ZuVhVbI8NVvaUtu+Q63HD8kD LCBBTUFOREEgREFXTjwvdGQ+ PHRk SKH0xXlgKUbjWMKlcX3kHPLv K3n5VmPlCmP9SHoaH2YcVITy hzxjCm24qQ7eEgTlRyN6FQnq O2Zv oqP2QWQqvFGmCPgvKAU1Y11y g9U4PHJiRIOmXCW1aDW3qO9s bGlnbjogbGVmdDsgdmVydGlj YWwt SGesZ276KWWecVfsXxL0SbJa RwP4UIK4H9VyIyd6WZEtaMku VR5weKLrWDxwWa6qgXwrxPsm MC4w SYSbcckxVODdjZ9aEGCgiKXq tKpyDC9kYZOmzujka555NuRb FYS8IQTvcFPuH9IvkM7pDjGo MDAw JGDdO7QllGXkYBvlY950OIpc GtF8BOQdbqSwL6ZrTMHhiNdj IyC2m6Y6Oq05DDNXXHMbpkdi dGQ+ HQTwZWB6sIcbLFfwYIZljJ1i CBAmH6d6IcCtBkQ8QDtoV9Oi VLZxustwDp05aK0oOdIqZoG5 MGlu B9GjllE7BCKajYGbWIutNOE7 R90fa9M7RQQgAMSkYED3cWL8 jW6nsNqkbfazwURfxFgfqvVj dGlj DWxjDSulR847RVBuqZzeVzCS TUFMRTwvdGQ+MLZrZHG7jUdr OEoxALUkeY4oXIFeM2i1PkCr LjA1 XPpcN2SkHYUqdjchQv92mY9y ZiDoHaI1GGqsG5DrfiC0GKSs eZSwKByzLZQ5Q18uh6C9SMFl MDAw DFC3xXO8zA9noJbzndpbuXWc nPpumsXxdJuyYGsjFJsjT968 SVThyYbbUk5QLK63GY58C8Lk Pjwv dGFibGU+PHRhYmxlIHdpZHRo WErsFELyIgPouQwbAS9rWi1d VNBqBEMwjMlytVPzHxKya8xy YXBz FQthES8rjYmsV0DfwXX0CLTg z3e7Or21K53tY0BjaIF+PGNv mXN5rZJ9jC1pPzGvUeI3HRtn Z249 CgEtkDIbFgymn1rtf0xngPi4 DpRmQLIcckGwcLhdOJP0v2Xi Sb76W67aZLhoVKYgPOIxPIQj IHZh dDfdwy4dfR6uMx1+PGNvbCB3 iTI3hW0hOqGbErJ3NKasE775 EfDoqJGyVezlS17pL6RetCC+ PHRy Dhv8GFAjyMstPT1huNCcCJmg Hp4vYHL2GyTeHvYfVJedS0Uu LQCxvuwcmhavnMC0KSZbTWWd aW47 Rv4wzUhmVu6eYRGhGYI2MTPk qXLtH5PnoH0dUsJnTHOtWMIl D7ZtwBIgTYhcP689HNxyNkG8 IHZl dgMzU0OaMJVupIbcAiS5v0R8 Ms2QbHqkwZSbUL2bWqQuFGn0 R5VbErk9UHOwuNpmVF1rvYUq ZGlu Uh2gkYpmhShzBZ2sRBDmzgtp h315GrWeu5oyTCYoyTAvEXid BLF6Z18qy0M2XRGsJCIfSZQ3 dGV4 wI7ozQgexlxrnFJcgAhvzpPk wCkxKIhwSAjpJ620PYGqqQdw BdERDho3T9EvTup6QAWziSjp ZT0n uTVaAVrfIn4orUsktIgwIL4q DVIaesajl616KbJcy8ygUPGh tDNlZUzqTJO0X41zw0U8OZAo MDAw YPR6eED3oX7kvJkqkiqfbLWd kTrrlsSdvYiiLQmfNXrcA322 NOTnlAswDj4SJqe6I9VuTfp7 ZCBz wGxiXC9ivRJhVLcaGr7whLze uZhhQE5pIEHuxixxk948LvMf e6qxFPCyfEXaCNjoPTU1D98r b3I6 ABMeFZOxLOZ6cJZ4gE0reQup bjogbGVmdDsgdmVydGljYWwt TNiuO453PNLhgAooCmEyxTEq Ojwv dGQ+DR03td91K1HeSfclKes5 FVTdCXG6dDS0bT5eBREaZKgk d8W3jOJ9N3FtrvHguy3ns9yo YXBz ZTo (more content not included)... Normal [facility] ED Clinical Summaryon 2023 ED Clinical Summary [facility] ? Urgent Care [address] [place] [address] Clinical Summary PERSON INFORMATION Name: KARUNA DUMONT Age: 42 Years Sex: FEMALE : 1980 MRN: Acct#: Visit Reason: Skin problem; RASH ON ARMS Arrival: 08/23/2023 14:45:23 Discharge: 08/23/2023 15:20:00 LOS: 000 00:35 Check In: 08/23/2023 14:45:23 Checkout: 08/23/2023 15:20:00 Address: [address] [facility] [place] [address] PCP: Johnathon Winter MD PROVIDER INFORMATION Provider Role Assigned Unassigned Phuong Oseguera SUPPLY CHAIN ASSISTANT Nurse 08/23/2023 14:46:59 Yissel Resendez PA-C ED PA 08/23/2023 14:47:33 VITALS INFORMATION Vital Sign Triage Latest Temperature Tympanic Temperature Temporal Artery Pulse Rate O2 Sat 100 % 100 % Respiratory Rate Blood Pressure /101 mmHg /101 mmHg MEDICAL INFORMATION Medications Given: Allergy Information: No known allergies PHYSICIAN DOCUMENTATION DISCHARGE INFORMATION: Discharge Disposition: Home Discharge Location: Home PATIENT EDUCATION INFORMATION Instructions: Rash, Adult; Hypertension, Adult Follow-Up: With: Address: When: [place] [address] [place] [address] DIAGNOSIS: 1:Rash and nonspecific skin eruption; 2:Elevated blood pressure reading without diagnosis of hypertension Patient Understands: Comment: Normal [facility] ED Patient Summaryon 024 ED Patient Summary [facility] ? Urgent Care [address] [place] [address] PATIENT DISCHARGE INSTRUCTIONS Patient Information Name: KARUNA DUMONT Age: 42 Years Date of : 1980 Reason For Visit: Skin problem; RASH ON ARMS Arrival Time: 08/23/2023 14:45:23 Primary Care Physician: Johnathon Winter MD Attending Physician: Yissel Resendez PA-C Comment: Patient Education With: Address: When: [place] [address] [place] [address] Rash, Adult A rash is a change in the color of your skin. A rash can also change the way your skin feels. There are many different conditions and factors that can cause a rash. Some rashes may disappear after a few days, but some may last for a few weeks. Common causes of rashes include: ? Viral infections, such as: ? Colds. ? Measles. ? Hand, foot, and mouth disease. ? Bacterial infections, such as: ? Scarlet fever. ? Impetigo. ? Fungal infections, such as Hcrissy. ? Allergic reactions to food, medicines, or skin care products. Follow these instructions at home: The goal of treatment is to stop the itching and keep the rash from spreading. Pay attention to any changes in your symptoms. Follow these instructions to help with your condition: Medicine Take or apply dats-htv-fqsrayc and prescription medicines only as told by your health care provider. These may include: ? Corticosteroid creams to treat red or swollen skin. ? Anti-itch lotions. ? Oral allergy medicines (antihistamines). ? Oral corticosteroids for severe symptoms. Skin care ? Apply cool compresses to the affected areas. ? Do not scratch or rub your skin. ? Avoid covering the rash. Make sure the rash is exposed to air as much as possible. Managing itching and discomfort ? Avoid hot showers or baths, which can make itching worse. A cold shower may help. ? Try taking a bath with: ? Epsom salts. Follow research scientist instructions on the packaging. You can get these at your local pharmacy or grocery store. ? Baking soda. Pour a small amount into the bath as told by your health care provider. ? Colloidal oatmeal. Follow research scientist instructions on the packaging. You can get this at your local pharmacy or grocery store. ? Try applying baking soda paste to your skin. Stir water into baking soda until it reaches a paste-like consistency. ? Try applying calamine lotion. This is an yviw-nhz-hhnofax lotion that helps to relieve itchiness. ? Keep cool and out of the sun. Sweating and being hot can make itching worse. General instructions ? Rest as needed. ? Drink enough fluid to keep your urine pale yellow. ? Wear loose-fitting clothing. ? Avoid scented soaps, detergents, and perfumes. Use gentle soaps, detergents, perfumes, and other cosmetic products. ? Avoid any substance that causes your rash. Keep a journal to help track what causes your rash. Write down: ? What you eat. ? What cosmetic products you use. ? What you drink. ? What you wear. This includes jewelry. ? Keep all follow-up visits as told by your health care provider. This is important. Contact a health care provider if: ? You sweat at night. ? You lose weight. ? You urinate more than normal. ? You urinate less than normal, or you notice that your urine is a darker color than usual. ? You feel weak. ? You vomit. ? Your skin or the whites of your eyes look yellow (jaundice). ? Your skin: ? Tingles. ? Is numb. ? Your rash: ? Does not go away after several days. ? Gets worse. ? You are: ? Unusually thirsty. ? More tired than normal. ? You have: ? New symptoms. ? Pain in your abdomen. ? A fever. ? Diarrhea. Get help right away if you: ? Have a fever and your symptoms suddenly get worse. ? Develop confusion. ? Have a severe headache or a stiff neck. ? Have severe joint pains or stiffness. ? Have a seizure. ? Develop a rash that covers all or most of your body. The rash may or may not be painful. ? Develop blisters that: ? Are on top of the rash. ? Grow larger or grow together. ? Are painful. ? Are inside your nose or mouth. ? Develop a rash that: ? Looks like purple pinprick-sized spots all over your body. ? Has a bull's eye or looks like a target. ? Is not related to sun exposure, is red and painful, and causes your skin to peel. Summary ? A rash is a change in the color of your skin. Some rashes disappear after a few days, but some may last for a few weeks. ? The goal of treatment is to stop the itching and keep the rash from spreading. ? Take or apply pxau-ktc-gmfdrjj and prescription medicines only as told by your health care provider. ? Contact a health care provider if you have new or worsening symptoms. ? Keep all follow-up visits as told by yo (more content not included)... [facility] 05-23-2023 L Specimen: [id number] Received: 05/24/23 Status: NATHAN Guzmán Num: [id number] Spec Type: Surgical Subm Dr: Tee Peterson MD Tissues: A BREAST CORE NO CALCS (LT BREAST) Procedures: HE/4, Gross/Micro L4, AE1-AE3/2 Age/ Patient Sex Location Account Attending Physician Karuna Dumont 42/F LABELL [id number] Tee Peterson MD SPEC NUM: [id number] RECD: 05/24/23 [facility] NUM: [id number] GENEVA: 05/23/23- SUBM DR: Tee Peterson MD ENTERED: 05/24/[address]: Sandra Noel SPEC TYPE: Surgical DEPT: ROLDAN THOMPSON ORDERED: [...] Time: 0.10 Formalin Fixation Time: 28.50 Specimen: [id number] Received: 05/24/23 Status: NATHAN Burnsroberto Num: [id number] Spec Type: Surgical Subm Dr: Tee Peterson MD Tissues: A BREAST CORE NO CALCS (LT BREAST) Procedures: HE/4, Gross/Micro L4, AE1-AE3/2 Patient: Karuna Dumont [id number] (Continued) Specimen: [id number] Received: 05/24/23 (Continued) Signed (signature on file) Tootie Jordan MD 05/31/232105 Specimen: [id number] Received: 05/24/23 Status: NATHAN Guzmán Num: [id number] Spec Type: Surgical Subm Dr: Tee Peterson MD Tissues: A BREAST CORE NO CALCS (LT BREAST) Procedures: HE/4, Gross/Micro L4, AE1-AE3/2 Patient: Karuna Dumont [id number] (Continued) Specimen: [id number] Received: 05/24/23 (Continued) CPT Codes 67677 Specimen: [id number] Received: 05/24/23 Status: NATHAN Guzmán Num: [id number] Spec Type: Surgical Subm Dr: Tee Peterson MD Tissues: A BREAST CORE NO CALCS (LT BREAST) Procedures: HE/4, Gross/Micro L4, AE1-AE3/2 Patient: Karuna Dumont [id number] (Continued) Signed (signature on file) Tootie Jordan MD 05/31/233 [facility] MR LUMBAR SPINE WO CONTon MR [...] Yung Perry on 05/23/2023 12:47 PM Normal [facility] Free testosterone measuremen t by LC-MS/MSon 05-10-2023 Testosterone Free [Mass/Vol] 0.6 pg/mL 0.0-4.2 [facility] Comment on above: Performed at: [facility] [id number] Director: Theron Roblero PhD, Phone: [phone] at: [facility] [address] [id number] Director: Katelynn Macdonald MD, Phone: [phone] No Panel Informationon 05-10 C-Peptide 2.8 ng/mL 1.1-4.4 [facility] Comment on above: C-Peptide reference interval is for fasting patients.Performed at: [facility] [address] [id number] Director: Theron Roblero PhD, Phone: [phone] Dehydroepiandrosterone Sulfate 194.0 ug/dL 57.3-279.2 [facility] Free Cortisol, Dialysis, LCMS 0.787 ug/dL . [facility] Comment on above: These tests were dev eloped and their performancecharacteristics determined by [facility]. They have not beencleared or approved by the Food and Drug Administration.Reference Range:8 AM 0.10 - 1.204 PM 0.042 - 0.872Performed at: [facility] [id number] [place], [place] [id number] Director: Kal Archibald MD, Phone: [phone] Reverse Triiodothyronine (T3) 23.0 ng/dL 9.2-24.1 [facility] Comment on above: This test was develo ped and its performance characteristicsdetermined by [facility]. It has not been cleared orapproved by the Food and Drug Administration.Performed at: [address] [id number] Director: Katelynn Macdonald MD, Phone: [phone] Sex Hormone Binding Globulin 49.1 nmol/L 24.6-122.0 [facility] Comment on above: Performed at: [address] [id number] Director: Theron Roblero PhD, Phone: [phone] Testosterone Level 22 ng/dL 8-60 [facility] Plasma serotonin measurement (mass/volume)on 05-10-2023 Serotonin (P) [Mass/Vol] 105 ng/mL 31-207 [facility] Comment on above: This test was develo ped and its performance characteristicsdetermined by [employer]. It has not been cleared orapproved by the Food and Drug Administration.Performed at: [address] [id number] Director: Katelynn Macdonald MD, Phone: [phone] Serum estrone measurementon 05-10-2023 E1 [Mass/Vol] 65 pg/mL 27-231 [facility] Comment on above: Range Adult (Premeno pausal) 27 - 231 Menstrual Cycle (1-10 days) 19 - 149 Menstrual Cycle (11-20 days) 32 - 176 Menstrual Cycle (21-30 days) 37 - 200Performed at: [address] [id number] Director: Katelynn Macdonald MD, Phone: [phone] Serum or plasma estradiol (E 2) measurement (mass/volume)on 05-10-2023 E2 [Mass/Vol] 98.9 pg/mL . [facility] Comment on above: Adult Female Range F ollicular phase 12.5 - 166.0 Ovulation phase 85.8 - 498.0 Luteal phase 43.8 - 211.0 Postmenopausal <6.0 - 54.7 1st trimester 215.0 - >4300.0Roche ECLIA methodology Serum or plasma insulin mariam urement (units/volume)on 05-10-2023 Insulin Qn 7.0 u[iU]/mL 2.6-24.9 [facility] Comment on above: Performed at: - [facility] [address] [place], [place] [id number] Director: Theron Roblero PhD, Phone: [phone] Serum or plasma progesterone measurement (mass/volume)on 05-10-2023 Progesterone [Mass/Vol] 0.1 ng/mL . [facility] Comment on above: Follicular phase 0.1 - 0.9 Luteal phase 1.8 - 23.9 Ovulation phase 0.1 - 12.0 First trimester 11.0 - 44.3 Second trimester 25.4 - 83.3 Third trimester 58.7 - 214.0 Postmenopausal 0.0 - 0.1Performed at: [facility] [address] [place], [place] [id number] Director: Theron Roblero PhD, Phone: [phone] Serum or plasma thyroperoxid ase antibody assay (units/volume)on 05-10-2023 TPO Ab Qn 11 [IU]/mL 0-34 [facility] Thyroglobulin [Mass/volume] in Serum or Plasmaon 05-10-2023 Thyroglobulin [Mass/Vol] <1.0 [IU]/mL 0.0-0.9 [facility] Comment on above: Thyroglobulin Antibo dy measured by [email or web address] at: [facility] [address] [place], [place] [id number] Director: Theron Roblero PhD, Phone: [phone] XR LUMBAR SPINE AP, LATERAL, FLEXION AND [...] Yung Perry on 05/05/2023 1:28 PM Normal [facility] Coding Summaryon 03-20-2023 Coding Summary [employer] 64 UxakssmePYe5sOa+PGhlYWQ+ JW9RVCWeE57qyYHhdT1kO3RS TElOSywgQVBQTElOSyIgbmFt PD5fkLRsNQUr IC8+DL1xTSEbCdbxhEBpe3S4 wPG0F48gky1iRJquwIP4UVPb LoXbvmwop0erfEm0MSskMujx OyBt XXCtdL06DSJ8jX98Wa08kFQp qGWqa7obmAv0JvFnLEJwOLM3 sYlhZOier8RmRNAwH53aeNQa c2U6 QWVgjUrybDIlDmEwaFV6qX0g TUuylourq1neyhhzPlk8sw85 vHWhp6C3lHL0F3AidsF7BCSj bGQg YfoyqLDKxN8vnwvbi3fwvrpr ZoQvAIBuYZg1ZWq9DOWhcNfs ZlJvLT58JCW4HCLxowSaI9Nh LWFs nNrxOaT7w7U2Mj5VI4XQXitu A3MPDCUEHJeomVW+HN55rg02 X1CvVflzEdq9NLMpVUL1jFE9 aD0n SPHcFHxcj9C1hKE2P3YzutMt xj5qa3bgMJVdBDftF15aoWJq u2C4VZNxqYS2OUYzlRusIwZv aG93 Oyc+VWAbaUrtu6SzHifii5pz c8tdrOr3RdtiGGQpxbCltJaz NBO7y5OdOj9yFDCmyLB9pSI2 aD0i QkApUbD6YOmrY977GaXksYSa CnxuT36oZ4FchMV+PHRyPjx0 DMXhhCmcAN0tO0WlRZCphuiv bGVm yBdiCR9jMEXukehsIYJspQ7q CVBkF7t9UdAqVgP3NMshO0Vu ECXjfxdiWj43cQ7oVqIeAcZ7 MGlu D7RzllG6TEBwnXJpFKnhTUY2 W66uq3D2COLjACJlSLK6tRB8 rX0ykQawwbvqaJFdwZejfvJu dGlj KCanGJpeS563YWSdvNrsKpNo ZGluZyBEYXRlOiAgMTIvMTgv MjAyMzwvdGQ+LEIhBOI1vLyu PSAn dLPqDDmkDf8ihDnkaQwxXU8l UWJajsinDQOtkC7cMOCaaUVa eRpbCO4nNCMsupuuh678IaGf MHB0 XSHloDUtY6SmwC3mMtLtNUFd MFXmF4QnnTMyKJpuW336EAiy AaV0QGBcawUfH5IsTZYcuFwh OiB0 w5F2Ls9Te6VadckrH2IysHTt MoFuCrubOGf6Y8YdKwqvnXT+ ZA91TKPsSC76KMg2OVQ5iSsl PSdi SLImS0QrxQ8qJgNmHJRcBXNi Oyc+PHRhYmxlIHdpZHRoPScx ICYvXmKjlMfeYJ6fDv7rFNSw LWNv hNirxMFcAuLnw2inSHXvJCpk ET0nbUmuW5KddIK3MLTeq4f0 Ax06H62zJ6GojJE+PGNvbCB3 aWR0 aY9dMeQqFnS5PQnvI599FoUl hOEvPpdfv2lzo6blmCq1EaP2 JBAjmkNjdStiOAU0r8FsAy80 Y29s IHdpZHRoPSIxNSUiIHZhbGln hn6heB7gWz1+GVKpdID6nZU8 oZ7tZwVcFqJ3WPstB859JgTb cCIv Hqeef8eeo3biaLh3XpPcGBIi boYmgQxfSDK1u7QiLr83Q8Pr oSgrp0BbPwl5wr55xIEst0L0 bGU9 V3ZsETBfzemxuALhzYjrMJ6j RWFcmqodRZUtmJ6dTPEqV7g4 RbNjJpT7EMluY0XnfpX9QMNa bGQg SKSmfVSMvB9yaocrt9pnvfpz RfWnNEYeIQm9OIb0RPNixAbx YbMqNKH4YlJ2SCD6fGIeuC3z bGln fuzdmH4aKmp+TZZ6uBWzzPAQ GI2zVxtrsUU+ZROjXPS8gFwk MZnvCBDmqC0wPZVpI3y1VaRa LjA1 LCskI7EndqW7LWDroJSfMRXl yTHEpL3bpvrib0pxmapyZhGy NFRxLKz3WQd8ZGTduFjkItKx ZWZ0 NvZ9AWS9dZRjrE3ivGoqdehf pV7iUqo+PccnsJmbNSA6MXk3 A9BpUum4TMHghCvuVJ0ugXQn ZGlu Qb8gqDitfUlxCF9dJULuzwvb l765AzAaq0leJVKeqKZmPNna DQJ4O57yz9R0KDEjBNRhLSB4 dGV4 jT1ahBckokighEJlbOhoxoHk hZwlMHunUPhxX379GLOfgSfe KhVfWKu9A4YdGrs5ZBTvvStt ZT0n fJNoXLraGd1ojOvzmVboFM2d OKYkkuojm875SgZsr1fvJTJk jCLdCTovFQQ6H37hl1U9MMIk MDAw BUN4nPN3qW8giRvpjdgdrYIy jOuyovIomBjiGQjzEBfqU687 ZEMsgTbbQpLxmYh2R1GaRgf6 ZCBz dAovJI6zfKMdEIodVd7vrYgg cXkeHU2aGKGchafpj505SlCq c6ubXXUfzQCdOHuvWPO7P27n b3I6 HUUtZSOaTPN3fYZ6sT7dxGrh bjogbGVmdDsgdmVydGljYWwt BCfnT214WJYhfFckMfJzpZbg bnQg CAhfBOv3E1HzQxvinHE+PC90 DHEvEL03nPPstEOwo7ybrMe0 RwWoJZYySRX8mPblDOlhv8Hd ZXIt U10hjPDmv4S1JLAwqBpxtLEa QsEotJV7lX0sWWauciaqk7yi csyoUavbq0svps05oS88K19y IHdp NZDwKNClGRQmLDXlwEekqp4l lE8xCg6+IRTvmXI1jKG9qI3t TUQoSlP8PTujK445YoVetQGl Pjxj q9dqn7ihiBb7VoM8KCOzvfRs xWbnYDL4n4SkGh12Y37dGExg BSFuFURtQLUiFPCofOmtgc7g dG9w Ii8+VORlkYH0vXV1iJ3aRhVv UhM3LBdqQ163NlJlaIZaPdpp Y39rN4YdtFR+QRClJuo1ONTb dHls FQ6ynTZyYZlzWx6vEDZ5RaKk SzIzFEacN0EfRLIgotbzglsv bPD8AOGuLXUdoN80Nh3nfPci MTBw yFCSxH2sgbnaf0bxnegpIlAa ALVmZPc0FMx8VNMgzQcyDaLs TSH4PvM6XBX8yYOtaA6lfOuo bjog mS0aK7TaPYLdoaesDb31sJ5s YwPcMnQ1NUryBov+P07NW7nU LCBBTUFOREEgREFXTjwvdGQ+ PHRk MMK6hOmzZUmvBHUhmM4bUQYg F3a3DwNgJxX6DLmuW2CgJZCx xtzgJs41qS4qChCiIdN5EGsg O2Zv taS6AGJerYQqEFeyFEU9I88u e1X1ZBXbTWEaBRY1xUY4kN3o bGlnbjogbGVmdDsgdmVydGlj YWwt TAipW864DKBwfCysIbZ9JoWy LnK7XJE6Z4YoQox3IMKnyFgr VL9snOYdHZhlFc3zrHokzBzi MC4w WLTjkyrwLOPdcT1dHTUvgZXt nVrcOI2gKFWwoqdck409QqWv JDV1ULLrxOIvY3QraQ3ySyNc MDAw ZSSeA2MjjSOnOYieP508IWrg MbZ0QXFvscTgN2NpFTKodZnz NxN9t9Q0Ut63TRELPYZeimif dGQ+ SYByMAP8xWfaYBqwDDTbiA7s MJFqL2k2BdBzZoV0SAxiW6Ac NSJpekklQq31dG7xGmHkEyW3 MGlu A7IzhrX5ZVDtvSCcUJtsIEJ6 K63gn8F5INDwHLJtMEY9kLP1 wQ5gzKjwkokmjEZsgIndamHd dGlj TEylKOoiL860SDOxbDkyXoRF TUFMRTwvdGQ+JLOlCTU8uTmw RBwoNBBiiB1rIAWnH0f6JwRv LjA1 DMepG4XjHPKqdckgYx78jL9h XuNeBmP9YHtbM7ZmchL0LMEk uQHxMMozJSY4K38ty5W9DOEm MDAw EKO9lEP8hD0rrUeilulhjCPa zLkrncFwpBraGGpfSClzZ708 BKPxeTqrSy7JZK60BW37B6Ol Pjwv dGFibGU+PHRhYmxlIHdpZHRo ZJniTRQjKnMhbYjtOQ7xRi9n AMVwKUQuhFstkJAbMoGmw0yu YXBz OOmxAK2osGgzH4IsdZS6NHRc m3e9Xm84H37bE9NpdOD+PGNv rGK6lRP4rE8wPmVfQcB7SYgg Z249 JxEwqJLyNlnxm0prb5yeoFm5 KkQdVLUulkTwhZlwFVY4b4Ny Kn02L59cLWqoUBMkZVFqBABs IHZh gTbecj7wtY7xMv0+PGNvbCB3 fPT9rN2oVzLaPwA7IVenI875 ZbIceWVxHzouQ73kK2VwfCR+ PHRy Jcb9REDsuFsgQI2piTFgKOrj Dv7vKLC4RkSaCiCqCQmzV7Fm KNSutwvacedgeOR6GGXyFQDg aW47 Gh4lnEliWo5zXNCpHCS0JFAw jBJzA9YwxX5uIoEpULRnVPGm Z6NtzFDeCTbtJ864WHbmJpV4 IHZl bdDkG4RhKXJqaMfdLrU8g4W1 Ce3UzEaqkPMeHD0xBlWgESr9 F8TcCzp3ZGDhwWfkSI6maICw ZGlu Di1biXhkaZpyBJ9lPMYigwaz e814JiUaf9plVENtgLKhRHif TFH4N96to8F6OZUbIQDpKUE7 dGV4 dY8woQcabnkzoLMmwNcayuEi nYxyYWczYVqtB406MDErtPpy TlKFMqt1S5KfQbz5GNRvtVrd ZT0n dKGfXKenZr3zmFtilRisRI3z OMAhkbwtx324XnOdy9vqHBMt vFXnREhiZIM7Z88uz3I4WQGm MDAw EOF5zAB1mI4pkHdgejdmeGSn bNjhxoUpsIcpYEjyQMwpZ963 YTAbgOmhBn9OPdn3U8XxVwp2 ZCBz uTarDV9yvWBkAEukEd8wtVwt qRqqAK3hDZFshqnzp392EkNn b1fzQIQhbBSyPVlvKZN9M41r b3I6 QYAoRUByTBD1mUM2oM1xxAbu bjogbGVmdDsgdmVydGljYWwt IZzcC929BTPctNqfJpFjuIOs Ojwv dGQ+YA96wb77I9RuLiifEtd5 EEVhJJJ2cNI7nP9uZKUzIXyg q0L4kSV3A5TawzMpsf2il6fy YXBz ZTo (more content not included)... Normal [facility] ED Clinical Summaryon 2022 ED Clinical Summary [facility] ? Urgent Care [address] [place], [place] [id number] Clinical Summary PERSON INFORMATION Name: KARUNA DUMONT Age: 42 Years Sex: FEMALE : 1980 MRN: Acct#: Visit Reason: UC - Finger/Thumb Injury; RT RING FINGER INJURY Arrival: 03/09/2023 10:15:32 Discharge: 03/09/2023 12:03:00 LOS: 000 01:48 Check In: 03/09/2023 10:15:32 Checkout: 03/09/2023 12:03:00 Address: Luis Antonio [facility] [address] PCP: Johnathon Winter MD PROVIDER INFORMATION Provider [...] With: Address: When: YUNG LAWS DO [address] [address] Within 3 to 5 days [...] of instructions given Comment: Normal [facility] ED Patient Summaryon 023 ED Patient Summary [facility] ? Urgent Care [address] [place] [address] PATIENT DISCHARGE INSTRUCTIONS Patient Information Name: KARUNA DUMONT Age: 42 Years Date of : 1980 Reason For Visit: UC - Finger/Thumb Injury; RT RING FINGER INJURY Arrival Time: 03/09/2023 10:15:32 Primary Care Physician: Johnathon Winter MD Attending Physician: Sanchez John Comment: Patient Education With: Address: When: YUNG LAWS DO [address] [place] [address] [address] Within 3 to 5 days [...] (more content not included)... Normal [facility] Urgent Care [place] 023 Urgent Care Record [facility] ? 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 It is important for you to follow up with a doctor, nurse practitioner, or physician?s general office assistant for ongoing care. If your symptoms [...] can reach you if necessary. [facility] has provided you with a complete list of medications post discharge. Please inform your distribution technician/provider of your visit and for further instruction [...] of your st (more content not included)... [facility] XR Finger Righton 03-09-2023 XR Finger Right [...] MD 03/09/23 11:56 a Technologist: Vannesa DANGELO [facility] No Panel Informationon 10-11 No acute bony abnormalities are noted [facility] EXAMINATION: THREE XRAY VIEWS [...] well maintained. Soft tissue swelling. Calcaneal spurs [facility] Miller Romo MD - [...] IMPRESSION: No acute bony abnormalities are noted [email or web address] Radiology Study observation (narrative) [facility] No Panel InformationOrdered By: Miller Romo on 10-11-2022 [facility] [employer] Work Phone: XR ANKLE RIGHT (MIN 3 [...] Miller Romo MD 10/11/22 Final result Normal [facility] XR FOOT RIGHT (MIN 3 VIEWS)o [...] Miller Romo MD 10/11/22 Final result Normal [facility] PAP ACOG PANEL 2: 30 to 65on 07-16-2022 . . Normal [facility] Comment on above: Result Comment: Perf ormed at: WB Performed By: #### [id number] #### [facility] [address] [address] [address] Dang Kirby Age Gdln ACOG Testing 30-65 Normal [facility] Comment on above: Performed By: #### [id number] #### [facility] [address] [place] [address] Dr. Dang Kirby DIAGNOSIS: Comment Normal [facility] Comment on above: Result Comment: NEGA TIVE FOR INTRAEPITHELIAL LESION OR MALIGNANCY. THIS SPECIMEN WAS RESCREENED PART OF OUR TROUBLE TRACER PROGRAM. Performed at: WB Performed By: #### [id number] #### [facility] [address] [place] [address] Dr. Dang Kirby HPV Aptima Negative Normal Negative [facility] Comment on above: Result Comment: This nucleic acid amplification test detects fourteen high-risk HPV types (16,18,31,33,35,39,45,51,52,56,58,59,66,68) without differentiation. Performed at: =G Performed By: #### 4 [id number] #### [facility] [address] [place] [address] Dr. Dang Kirby HPV Genotype Reflex Comment Normal [facility] Comment on above: Result Comment: Crit eria not met, HPV Genotype not performed. Performed at: WB Performed By: #### 4 [id number] #### [facility] [address] [place] [address] Dr. Dang Kirby Methodology: Comment Normal [facility] Comment on above: Result Comment: This liquid based ThinPrep(R) pap test was screened with the use of an image guided system. Performed at: WB Performed By: #### [id number] #### [facility] [address] [place] [address] Dr. Dang Kirby Note: Comment Normal [facility] Comment on above: Result [...] Performed at: WB Performed By: #### [id number] #### [facility] [address] [place] [address] Dr. Dang Kirby Performed by: Comment Normal [facility] Comment on above: Result Comment: Flavia Stanford, Chemist Physical (ASCP) Performed at: WB Performed By: #### 4 [id number] #### [facility] [address] [place], [place] [address] Dr. Dang Kirby QC reviewed by: Comment Normal [facility] Comment on above: Result Comment: Valentino Victor, Chemist Physical Performed at: WB Performed By: #### 4 [id number] #### [facility] [address] [id number] Dang Kirby Specimen adequacy: Comment Normal [facility] Comment on above: Result Comment: Sati sfactory for evaluation. No endocervical component is identified. Performed at: WB Performed By: #### 4 [id number] #### [facility] [address] [id number] Dang Kirby MG MAMM DIAGNOSTIC 3D RAMA CA Don 04-29-2022 MG MAMM DIAGNOSTIC 3D RAMA CAD Patient: KARUNA DUMONT Exam Date: 04/29/2022 : 1980 Gender:F Ordering : DR SANJEEV LOPEZ . Admission #: [id number] Family : Order #: [id number] CLICK HERE TO VIEW EXAM RADIOLOGY REPORT PROCEDURE: MAMMOGRAM DIAGNOSTIC 3D BILATERAL CAD, 04/29/2022, 10:05 ULTRASOUND BREAST RIGHT LIMITED, 04/29/2022, 11:04 COMPARISON: None. INDICATIONS: Pain of breast Calculator Name NCI Breast Cancer Risk Assessment Tool 5 Year Breast Cancer Risk Not Reported. Lifetime Breast Cancer Risk Not Reported. Personal Breast Cancer No Personal Ovarian Cancer No Treatments None Family Cancers None LOCATION: [facility] BREAST COMPOSITION: Scattered areas fibroglandular density. [...] M.D. on 04/29/2022 at 14:[address] [facility] US BREAST RIGHT LIMITEDon US BREAST RIGHT LIMITED Patient: KARUNA DUMONT Exam Date: 04/29/2022 : 1980 Gender:F Ordering : DR SANJEEV LOPEZ . Admission #: [id number] Family : Order #: [id number] CLICK HERE TO VIEW EXAM RADIOLOGY REPORT PROCEDURE: MAMMOGRAM DIAGNOSTIC 3D BILATERAL CAD, 04/29/2022, 10:05 ULTRASOUND BREAST RIGHT LIMITED, 04/29/2022, 11:04 COMPARISON: None. INDICATIONS: Pain of breast Calculator Name NCI Breast Cancer Risk Assessment Tool 5 Year Breast Cancer Risk Not Reported. Lifetime Breast Cancer Risk Not Reported. Personal Breast Cancer No Personal Ovarian Cancer No Treatments None Family Cancers None LOCATION: [facility] BREAST COMPOSITION: Scattered areas fibroglandular density. [...] M.D. on 04/29/2022 at 14:[address] [facility] CT CERVICAL SPINE WO CONTRAS Ton [...] COMPARISON: None. HISTORY: ORDERING SYSTEM PROVIDED HISTORY: [facility] TECHNOLOGIST PROVIDED HISTORY: [facility] Decision Support Exception - unselect if [...] Oziel Fox MD 02/16/22 Final result Normal [facility] XR CLAVICLE LEFTon XR CLAVICLE LEFT [...] Miller Romo MD 02/16/22 Final result Normal [facility] XR SHOULDER LEFT (MIN 2 VIEW [...] Emil Flores MD 02/16/22 Final result Normal [facility] CBC with Auto Differentialon 01-03-2022 Absolute Eos # 0.10 [facility] Absolute Lymph # 1.60 [facility] Absolute [facility] [place] # 0.40 [facility] Basophils (Bld) [#/Vol] 0.00 10*3/uL [facility] Basophils/100 WBC (Bld) 1 % 0 - 2 % [facility] Eosinophils/100 WBC (Bld) 2 % 1 - 4 % [facility] Hematocrit (Bld) [Volume fraction] 46.0 % 36 - 46 % [facility] Hemoglobin (Bld) [Mass/Vol] 15.4 g/dL 12 - 16 g/dL [facility] Interpretation and review of laboratory results Abnormal [facility] Lymphocytes/100 WBC (Bld) 29 % 24 - 44 % [facility] MCH (RBC) [Entitic mass] 28.6 pg 26 - [address] [facility] MCHC (RBC) [Mass/Vol] 33.4 g/dL 31 - 3 7 g/dL [facility] MCV (RBC) [Entitic vol] 85.9 fL 80 - [address] [facility] Monocytes/100 WBC (Bld) 8 % 2 - 11 % B [facility] Platelet distribution width (Bld) [Ratio] 14.1 % 12.5 - 15.4 % [facility] Platelet mean volume (Bld) [Entitic vol] 7.6 fL 6 - [address] [facility] Platelets (Bld) [#/Vol] 277 10*3/uL [facility] RBC (Bld) [#/Vol] 5.36 10*6/uL High 4 - 5.2 m/uL [facility] Segmented neutrophils/100 WBC (Bld) 60 % 36 - 66 % [facility] Segs Absolute 3.[address] [facility] WBC (Bld) [#/Vol] 5.6 10*3/uL [facility] CBC with Diffon 01-03-2022 Abs. Basophil 0.00 k/uL Normal 0.0-0.2 [facility] Comment on above: Performed By: #### H CG, LIP, MG, CDP, CMPX #### [address] [address] Regrinder Operator: Estevan Corcoran MD Abs.Neutrophil (Seg) 3.40 k/uL Normal 1.8-7.7 [facility] Comment on above: Performed By: #### H CG, LIP, MG, CDP, CMPX #### [address] [place] [address] Regrinder Operator: Estevan Corcoran MD Basophils/100 WBC (Bld) 1 % Normal 0-2 M [facility] Comment on above: Performed By: #### H CG, LIP, MG, CDP, CMPX #### [place] [id number] Regrinder Operator: Estevan Corcoran MD Eosinophils (Bld) [#/Vol] 0.10 10*3/uL Normal 0.0-0.4 [facility] Comment on above: Performed By: #### H CG, LIP, MG, CDP, CMPX #### [place] [address] Regrinder Operator: Estevan Corcoran MD Eosinophils/100 WBC (Bld) 2 % Normal 1-4 [facility] Comment on above: Performed By: #### H CG, LIP, MG, CDP, CMPX #### [place] [address] Regrinder Operator: Estevan Corcoran MD Erythrocyte distribution width (RBC) [Ratio] 14.1 % Normal 12.5-15.4 [facility] Comment on above: Performed By: #### H CG, LIP, MG, CDP, CMPX #### [place] [address] Regrinder Operator: Estevan Corcoran MD Hematocrit (Bld) [Volume fraction] 46.0 % Normal 36-46 [facility] Comment on above: Performed By: #### H CG, LIP, MG, CDP, CMPX #### [place] [id number] Regrinder Operator: Estevan Corcoran MD Hemoglobin (Bld) [Mass/Vol] 15.4 g/dL Normal 12.0-16.0 [facility] Comment on above: Performed By: #### H CG, LIP, MG, CDP, CMPX #### [place] [address] Regrinder Operator: Estevan Corcoran MD Lymphocytes (Bld) [#/Vol] 1.60 10*3/uL Normal 1.0-4.8 [facility] Comment on above: Performed By: #### H CG, LIP, MG, CDP, CMPX #### [place] [address] Regrinder Operator: Estevan Corcoran MD Lymphocytes/100 WBC (Bld) 29 % Normal 24-44 [facility] Comment on above: Performed By: #### H CG, LIP, MG, CDP, CMPX #### [place] [address] Regrinder Operator: Estevan Corcoran MD MCH (RBC) [Entitic mass] 28.6 pg Normal 26-34 [facility] Comment on above: Performed By: #### H CG, LIP, MG, CDP, CMPX #### [place] [address] Regrinder Operator: Estevan Corcoran MD MCHC (RBC) [Mass/Vol] 33.4 g/dL Normal 31-37 [facility] Comment on above: Performed By: #### H CG, LIP, MG, CDP, CMPX #### [place] [address] Regrinder Operator: Estevan Corcoran MD MCV (RBC) [Entitic vol] 85.9 fL Normal 80-100 M [facility] Comment on above: Performed By: #### H CG, LIP, MG, CDP, CMPX #### [address] [id number] Regrinder Operator: Estevan Corcoran MD Monocytes (Bld) [#/Vol] 0.40 10*3/uL Normal 0.1-1.2 [facility] Comment on above: Performed By: #### H CG, LIP, MG, CDP, CMPX #### [place] [address] Regrinder Operator: Estevan Corcoran MD Monocytes/100 WBC (Bld) 8 % Normal 2-11 M [facility] Comment on above: Performed By: #### H CG, LIP, MG, CDP, CMPX #### [place] [address] Regrinder Operator: Estevan Corcoran MD Neutrophil (Seg) 60 % Normal 36-66 [facility] Comment on above: Performed By: #### H CG, LIP, MG, CDP, CMPX #### [place] [address] Regrinder Operator: Estevan Corcoran MD Platelet mean volume (Bld) [Entitic vol] 7.6 fL Normal 6.0-12.0 [facility] Comment on above: Performed By: #### H CG, LIP, MG, CDP, CMPX #### [place] [address] Regrinder Operator: Estevan Corcoran MD Platelets (Bld) [#/Vol] 277 10*3/uL Normal 140-450 [facility] Comment on above: Performed By: #### H CG, LIP, MG, CDP, CMPX #### [place] [id number] Regrinder Operator: Estevan Corcoran MD RBC (Bld) [#/Vol] 5.36 10*6/uL High 4.0-5.2 [facility] Comment on above: Performed By: #### H CG, LIP, MG, CDP, CMPX #### [facility] [address] [place] [address] Regrinder Operator: Estevan Corcoran MD WBC (Bld) [#/Vol] 5.6 10*3/uL Normal 3.5-11.0 [facility] Comment on above: Performed By: #### H CG, LIP, MG, CDP, CMPX #### [facility] [address] [place] [address] Regrinder Operator: Estevan Corcoran MD CT ABDOMEN PELVIS W [...] Papito Mishra MD 01/03/22 Final result Normal [facility] CT ABDOMEN PELVIS W IV CONTR [...] No clear evidence for small bowel obstruction. [employer] Phone: Radiology Study observation (narrative) [employer] Phone: CT ABDOMEN PELVIS W IV CONTR AST Additional Contrast? NoneOrdered By: Papito Mishra on 01-03-2022 [employer] Phone: Comp Metabolic Pr/rfx MGon 1 ALT [Catalytic activity/Vol] 28 U/L Normal 5-33 [facility] Comment on above: Performed By: #### H CG, LIP, MG, CDP, CMPX #### [facility] [address] [place] [address] Regrinder Operator: Estevan Corcoran MD (cont.) [facility] Comment on above: Result Comment: Aver age GFR for 30-39 years old: 107 mL/min/1.73sq m Chronic Kidney Disease: <60 mL/min/1.73sq m Kidney failure: <15 mL/min/1.73sq m eGFR calculated using average adult body mass. Additional eGFR calculator available at: http://www.globalrph.[employer]/multiple_crcl_2011.htm Performed By: #### H CG, LIP, MG, CDP, CMPX #### [place] [address] Regrinder Operator: Estevan Corcoran MD Albumin [Mass/Vol] 4.3 g/dL Normal 3.5-5.2 [facility] Comment on above: Performed By: #### H CG, LIP, MG, CDP, CMPX #### [place] [address] Regrinder Operator: Estevan Corcoran MD Albumin/Glob Ratio 1.4 Normal 1.0-2.5 [facility] Comment on above: Performed By: #### H CG, LIP, MG, CDP, CMPX #### [place] [address] Regrinder Operator: Estevan Corcoran MD Alkaline Phos 105 U/L High 35-104 [facility] Comment on above: Performed By: #### H CG, LIP, MG, CDP, CMPX #### [place] [address] Regrinder Operator: Estevan Corcoran MD Anion gap [Moles/Vol] 13 mmol/L Normal 9-17 [facility] Comment on above: Performed By: #### H CG, LIP, MG, CDP, CMPX #### [place] [address] Regrinder Operator: Estevan Corcoran MD AST [Catalytic activity/Vol] 26 U/L Normal <32 [facility] Comment on above: Performed By: #### H CG, LIP, MG, CDP, CMPX #### [place] [address] Regrinder Operator: Estevan Corcoran MD Bilirubin [Mass/Vol] 0.3 mg/dL Normal 0.3-1.2 [facility] Comment on above: Performed By: #### H CG, LIP, MG, CDP, CMPX #### [place] [address] Regrinder Operator: Estevan Corcoran MD Calcium [Mass/Vol] 8.7 mg/dL Normal 8.6-10.4 [facility] Comment on above: Performed By: #### H CG, LIP, MG, CDP, CMPX #### [place] [address] Regrinder Operator: Estevan Corcoran MD Chloride [Moles/Vol] 104 mmol/L Normal 98-107 [facility] Comment on above: Performed By: #### H CG, LIP, MG, CDP, CMPX #### [place] [address] Regrinder Operator: Estevan Corcoran MD CO2 [Moles/Vol] 21 mmol/L Normal 20-31 [facility] Comment on above: Performed By: #### H CG, LIP, MG, CDP, CMPX #### [place] [address] Regrinder Operator: Estevan Corcoran MD Creatinine [Mass/Vol] 0.60 mg/dL Normal 0.50-0.90 [facility] Comment on above: Performed By: #### H CG, LIP, MG, CDP, CMPX #### [place] [address] Regrinder Operator: Estevan Corcoran MD GFR, Amer >60 Normal >60 [facility] Comment on above: Performed By: #### H CG, LIP, MG, CDP, CMPX #### [place] [address] Regrinder Operator: Estevan Corcoran MD GFR,non Amer >60 Normal >60 [facility] Comment on above: Performed By: #### H CG, LIP, MG, CDP, CMPX #### [place] [address] Regrinder Operator: Estevan Corcoran MD Glucose [Mass/Vol] 105 mg/dL High 70-99 [facility] Comment on above: Performed By: #### H CG, LIP, MG, CDP, CMPX #### [place] [address] Regrinder Operator: Estevan Corcoran MD Potassium [Moles/Vol] 3.5 mmol/L Low 3.7-5.3 [facility] Comment on above: Performed By: #### H CG, LIP, MG, CDP, CMPX #### [place] [address] Regrinder Operator: Estevan Corcoran MD Protein [Mass/Vol] 7.4 g/dL Normal 6.4-8.3 [facility] Comment on above: Performed By: #### H CG, LIP, MG, CDP, CMPX #### [place] [address] Regrinder Operator: Estevan Corcoran MD Sodium [Moles/Vol] 138 mmol/L Normal 135-144 [facility] Comment on above: Performed By: #### H CG, LIP, MG, CDP, CMPX #### [place] [id number] Regrinder Operator: Estevan Corcoran MD Urea nitrogen [Mass/Vol] 12 mg/dL Normal 6-20 [facility] Comment on above: Performed By: #### H CG, LIP, MG, CDP, CMPX #### [facility] [address] [place] [address] Regrinder Operator: Estevan Corcoran MD Comprehensive Metabolic Pane l w/ Reflex to MGon 01-03-2022 Albumin [Mass/Vol] 4.3 g/dL 3.5 - 5.2 g/dL [facility] Albumin/Globulin [Mass ratio] 1.4 {ratio} 1 - 2.[address] [facility] ALP (Bld) [Catalytic activity/Vol] 105 U/L High 35 - 104 U/L [facility] ALT [Catalytic activity/Vol] 28 U/L 5 - 33 U/L [facility] Anion gap [Moles/Vol] 13 mmol/L 9 - 17 mmol/L [facility] AST [Catalytic activity/Vol] 26 U/L NINF - 32 U/L [facility] Bilirubin [Mass/Vol] 0.3 mg/dL 0.3 - 1 .2 mg/dL [facility] Calcium [Mass/Vol] 8.7 mg/dL 8.6 - 10. 4 mg/dL [facility] Chloride [Moles/Vol] 104 mmol/L 98 - 10 7 mmol/L [facility] CO2 [Moles/Vol] 21 mmol/L 20 - 31 mmol/L [facility] Creatinine [Mass/Vol] 0.6 mg/dL 0.5 - 0.9 mg/dL [facility] GFR >60 60 - PI NF mL/min [facility] GFR Non- >60 60 - PINF mL/min [facility] GFR/1.73 sq M.predicted MDRD (S/P/Bld) [Vol rate/Area] [facility] Comment on above: Average GFR for 30-3 9 years old: 107 mL/min/1.73sq m Chronic Kidney Disease: <60 mL/min/1.73sq m Kidney failure: <15 mL/min/1.73sq m eGFR calculated using average adult body mass. Additional eGFR calculator available at: http://www.[employer]/multiple_crcl_2012.htm Glucose [Mass/Vol] 105 mg/dL High 70 - 99 mg/dL [facility] Interpretation and review of laboratory results Abnormal [facility] Potassium [Moles/Vol] 3.5 mmol/L Low 3.7 - 5.3 mmol/L [facility] Protein [Mass/Vol] 7.4 g/dL 6.4 - 8.3 g/dL [facility] Sodium [Moles/Vol] 138 mmol/L 135 - 144 mmol/L [facility] Urea nitrogen (BldV) [Mass/Vol] 12 mg/dL 6 - 20 mg/dL [facility] HCG Qualitative, Serumon hCG Qual Negative NEGATIVE [facility] Comment on above: Specimens with hCG l evels near the threshold of the test (25 mIU/mL) may give a negative or indeterminate result. In such cases, another test should be performed with a new specimen in 48-72 hours. If early is suspected clinically in this setting, correlation with quantitative serum b-hCG level is suggested. [facility] the use of plasma for this test. This has not been cleared or approved by the U.S. Food and Drug Administration. The FDA has determined that such clearance is not necessary. [facility] HCG Screen, Bloodon 01-04-20 HCG Screen, Blood Negative Normal NEG [facility] Comment on above: Result Comment: Spec imens with hCG levels near the threshold of the test (25 mIU/mL) may give a negative or indeterminate result. In such cases, another test should be performed with a new specimen in 48-72 hours. If early is suspected clinically in this setting, correlation with quantitative serum b-hCG level is suggested. [employer] has confirmed the use of plasma for this test. This has not been cleared or approved by the U.[place]. Food and Drug Administration. The FDA has determined that such clearance is not necessary. Performed By: #### H CG, LIP, MG, CDP, CMPX #### [address] [id number] Regrinder Operator: Estevan Corcoran MD Lipaseon 01-03-2022 Lipase [Catalytic activity/Vol] 20 U/L Normal 13-60 [facility] Comment on above: Performed By: #### H CG, LIP, MG, CDP, CMPX #### [address] [id number] Regrinder Operator: Estevan Corcoran MD Lipase [Catalytic activity/Vol] 20 U/L 13 - 60 U/L [facility] Magnesiumon 01-03-2022 Magnesium [Mass/Vol] 2.1 mg/dL Normal 1.6-2.6 [facility] Comment on above: Performed By: #### H CG, LIP, MG, CDP, CMPX #### [address] [address] Regrinder Operator: Estevan Corcoran MD Magnesium [Mass/Vol] 2.1 mg/dL 1.6 - 2 .6 mg/dL [facility] Microscopic Urinalysison Bacteria, UA MANY Abnormal None [facility] Epithelial Cells UA TOO NUMEROUS TO COUNT [facility] Interpretation and review of laboratory results Abnormal [facility] Other Observations UA Utilizing a urinal ysis as the only screening method to exclude a potential uropathogen can be unreliable in many patient populations. Rapid screening tests are less sensitive than culture and if UTI is a clinical possibility, culture should be considered despite a negative urinalysis. Abnormal NOT REQ. [facility] RBC, UA 2 TO [address] [facility] WBC, UA 2 TO 5 [facility] UA w/Reflex Cultureon 2021 Bilirubin, SemiQt,Ur Negative Normal NEG [facility] Comment on above: Performed By: #### U AX, UMICAO ####[address] [address] Lab Director: Estevan Corcoran MD Blood, Urine LARGE Abnormal NEG [facility] Comment on above: Performed By: #### U AX, UMICAO ####[address] [phone] Director: Estevan Corcoran MD Clarity (U) Cloudy Abnormal CLEAR [facility] Comment on above: Result Comment: FOUL ODOR Performed By: #### U AX, UMICAO ####[address] [phone] Director: Estevan Corcoran MD Color (U) Yellow Normal YEL [facility] Comment on above: Performed By: #### U AX, UMICAO ####[address] [address] Lab Director: Estevan Corcoran MD Glucose Ql (U) Negative Normal NEG [facility] Comment on above: Performed By: #### U AX, UMICAO ####[address] [phone] Director: Estevan Corcoran MD Ketones Ql (U) Negative Normal NEG [facility] Comment on above: Performed By: #### U AX, UMICAO ####[address] [address] Lab Director: Estevan Corcoran MD Leukocyte esterase Test strip Ql (U) Negative Normal NEG [facility] Comment on above: Performed By: #### U AX, UMICAO ####[address] [address] Lab Director: Estevan Corcoran MD Nitrite,Ur Negative Normal NEG [facility] Comment on above: Performed By: #### U AXTERESAO ####[place] [address] lab Director: Estevan Corcoran MD PH,Ur 6.0 Normal 5.0-8.0 [facility] Comment on above: Performed By: #### U AXTERESAO ####[place] [address] lab Director: Estevan Corcoran MD Protein Ql (U) Negative Normal NEG [facility] Comment on above: Performed By: #### U TERESA GILMANO ####[place] [address] Lab Director: Estevan Corcoran MD Spec. Universal,Ur 1.108 High 1.005-1.03 0 [facility] Comment on above: Result Comment: POST IV CONTRAST Performed By: #### U GEORGES GILMAN ####[place] [address] lab Director: Estevan Corcoran MD Urobilinogen,Ur Normal Normal NORM [facility] Comment on above: Performed By: #### U GEORGES GILMAN ####[place] [address] lab Director: Estevan Corcoran MD Urinalysis with Reflex to Cu ltureon 01-03-2022 Bilirubin Urine Negative NEGATIVE [facility] Color, UA Yellow Yellow [facility] Glucose, Ur Negative NEGATIVE [facility] Interpretation and review of laboratory results Abnormal [facility] Ketones Ql (U) Negative NEGATIVE [facility] Leukocyte esterase Test strip Ql (U) Negative NEGATIVE [facility] Nitrite, Urine Negative NEGATIVE [facility] pH, UA 6.0 5 - [address] [facility] Protein, UA Negative NEGATIVE [facility] Specific Universal, UA 1.108 High 1.005 - 1.[address] [facility] Comment on above: POST IV CONTRAST Turbidity UA Cloudy Abnormal Clear [facility] Comment on above: FOUL ODOR Urine Hgb LARGE Abnormal NEGATIVE [facility] Urobilinogen, Urine Normal Normal [facility] Urinalysis,Microon 2 Bacteria MANY Abnormal NONE [facility] Comment on above: Performed By: #### U AX UMICAO ####[place] [address] Lab Director: Estevan Corcoran MD Epithelial cells LM Ql (Urine sed) TOO NUMEROUS TO COUNT Normal 0-5 [facility] Comment on above: Performed By: #### U AX UMICAO ####[place] [address] Lab Director: Estevan Corcoran MD Other Observations Utilizing a urinalys is as the only screening method to exclude a potential [facility]normal [facility] Comment on above: Result Comment: urop athogen can be unreliable in many patient populations. Rapid screening tests are less sensitive than culture and if UTI is a clinical possibility, culture should be considered despite a negative urinalysis. Performed By: #### U AX UMICAO ####[place] [address] Lab Director: Estevan Corcoran MD Urine RBC's 2 TO 5 Normal 0-2 [facility] Comment on above: Performed By: #### U AX UMICAO ####[address] [id number] Lab Director: Estevan Corcoran MD Urine WBC's 2 TO 5 Normal 0-5 [facility] Comment on above: Performed By: #### U AX, [facility] ####[facility] [place] [address] [facility] Director: Estevan Corcoran MD CT LUMBAR SPINE [...] leg pain. Follow-up MRI may be helpful. [facility] EXAMINATION: CT OF THE [...] SOFT TISSUES/RETROPERITONEUM: No paraspinal mass is seen. [facility] Boyd Beatty MD - [...] leg pain. Follow-up MRI may be helpful. [employer] Work Phone: Radiology Study observation (narrative) [employer] Work Phone: CT LUMBAR SPINE WO CONTRASTO rdered By: Boyd Beatty on 08-19-2021 [employer] Work Phone: Vital Signs Date Time Vital Sign Value Performing Clinician Elena melton 06-12-2023 10:05-0400 Body height 165.1 cm Rohit Metzger MD Work Phone: [employer] 06-12-2023 10:05-0400 Body mass index (BMI) [Ratio] 38.94 kg/m2 Rohit Metzger MD Work Phone: [employer] 06-12-2023 10:05-0400 Body weight 106.14 kg Rohit [facility]zger MD [facility]: [facility] 05-16-2023 13:48-0500 Body height 165.1 cm Rohit Metzger MD Work Phone: [employer] 05-16-2023 13:48-0500 Body mass index (BMI) [Ratio] 38.94 kg/m2 Rohit Metzger MD Work Phone: [employer] 05-16-2023 13:48-0500 Body weight 106.14 kg Rohit Metzger MD Work Phone: [employer] 01-02-2023 10:00-0400 Body height 162.56 cm Johnathon Winter Other [employer] Other 01-02-2023 10:00-0400 Body mass index (BMI) [Ratio] 42.91 kg/m2 Johnathon Winter Other [employer] Other 01-02-2023 10:00-0400 Body weight 113.4 kg Johnathon Winter Other [employer] Other 01-02-2023 10:00-0400 Diastolic blood pressure 82 mm[Hg] Johnathon Winter Other [employer] Other 01-02-2023 10:00-0400 Systolic blood pressure 126 mm[Hg] Johnathon Winter Other [employer] Other 2022 11:00-0400 Body height 162.56 cm Johnathon Winter Other [employer] Other 2022 11:00-0400 Body mass index (BMI) [Ratio] 44.56 kg/m2 Johnathon Winter Other [employer] Other 2022 11:00-0400 Body weight 117.75 kg Johnathon Winter Other [employer] Other 2022 11:00-0400 Diastolic blood pressure 101 mm[Hg] Johnathon Winter Other [employer] Other 2022 11:00-0400 SaO2% (BldA) [Mass fraction] 100 % Johnathon Winter Other [employer] Other 2022 11:00-0400 Systolic blood pressure 138 mm[Hg] Johnathon Winter Other [employer] Other 10-11-2022 18:45-0400 Body height 165.1 cm Roxie Garcia MD Work Phone: [employer] 10-11-2022 18:45-0400 Body mass index (BMI) [Ratio] 43.93 kg/m2 Roxie Garcia MD Work Phone: [employer] 10-11-2022 18:45-0400 Body temperature 99 [degF] Roxie Garcia MD Work Phone: [employer] 10-11-2022 18:45-0400 Body weight 119.75 kg Roxie Garcia MD Work Phone: [employer] 10-11-2022 18:45-0400 Diastolic blood pressure 108 mm[Hg] Roxie Garcia MD Work Phone: [email or web address] [employer] 10-11-2022 18:45-0400 Heart rate 87 /min Roxie Garcia MD Work Phone: [email or web address] [employer] 10-11-2022 18:45-0400 Respiratory rate 16 /min Roxie Garcia MD Work Phone: [facility] [employer] 10-11-2022 18:45-0400 SaO2% (BldA) [Mass fraction] 98 % Roxie Garcia MD Work Phone: [email or web address] [employer] 10-11-2022 18:45-0400 Systolic blood pressure 160 mm[Hg] Roxie Garcia MD Work Phone: [facility] [employer] 01-03-2022 13:54-0400 Diastolic blood pressure 95 mm[Hg] Teo Froylanfman DO [email or web address] [employer] 01-03-2022 13:54-0400 Heart rate 61 /min Teo Helfman DO [email or web address] [employer] 01-03-2022 13:54-0400 SaO2% (BldA) [Mass fraction] 100 % Teo Helfman DO [email or web address] [employer] 01-03-2022 13:54-0400 Systolic blood pressure 142 mm[Hg] Teo Helfman DO [email or web address] [employer] 01-03-2022 11:46-0400 Body height 165.1 cm Teo Froylanfman DO [email or web address] [employer] 01-03-2022 11:46-0400 Body mass index (BMI) [Ratio] 44.1 kg/m2 Teo Helfman DO [email or web address] [employer] 01-03-2022 11:46-0400 Body temperature 97.7 [degF] Teo Helfman DO [employer] [email or web address] [facility] [employer] 01-03-2022 11:46-0400 Body weight 120.2 kg Teo Helfman DO [email or web address] [employer] 01-03-2022 11:46-0400 Respiratory rate 16 /min Teo Helfman DO [email or web address] [employer] 08-19-2021 18:03-0400 Diastolic blood pressure 98 mm[Hg] Radha Sanders MD Work Phone: [facility] [employer] 08-19-2021 18:03-0400 Heart rate 92 /min Radha Sanders MD Work Phone: [facility] [employer] 08-19-2021 18:03-0400 Respiratory rate 16 /min Radha Sanders MD Work Phone: [facility] [employer] 08-19-2021 18:03-0400 SaO2% (BldA) [Mass fraction] 96 % Radha Sanders MD Work Phone: [facility] [employer] 08-19-2021 18:03-0400 Systolic blood pressure 145 mm[Hg] Radha Sanders MD Work Phone: [employer] 08-19-2021 16:28-0400 Body height 165.1 cm Radha Sanders MD Work Phone: [facility] [employer] 08-19-2021 16:28-0400 Body mass index (BMI) [Ratio] 45.76 kg/m2 Radha Sanders MD Work Phone: [facility] [employer] 08-19-2021 16:28-0400 Body temperature 98.6 [degF] Radha Sanders MD Work Phone: [facility] [employer] 08-19-2021 16:28-0400 Body weight 124.74 kg Radha Sanders MD Work Phone: [facility] [employer] Encounters Encounter Date Encounter Type Care Provider Facility Start: 08-23-2023 End: 08-23-2023 ambulatory KELI Resendez Facility:[facility] Start: 08-02-2023 End: 08-02-2023 ambulatory ROBERT URRUTIA Not Available Start: 07-31-2023 End: 08-01-2023 ambulatory Bhavin Montgomery MD Facility:[facility] Start: 07-19-2023 End: 07-19-2023 ambulatory SANJEEV LOPEZ Not Available Start: 07-17-2023 End: 07-18-2023 ambulatory [facility] Start: 06-26-2023 End: 06-27-2023 ambulatory Christiano Rivera MD Facility:[facility] Start: 06-15-2023 End: 06-15-2023 ambulatory SANJEEV LOPEZ Not Available Start: 06-12-2023 End: 06-12-2023 ambulatory [facility] Comment on above: Lumbar radiculopathy , chronic (Primary Dx); Herniated lumbar intervertebral disc Start: 06-12-2023 End: 06-12-2023 Office outpatient visit 10 minutes Rohit Smith MD [facility]: [facility] Comment on above: 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) Start: 06-06-2023 ambulatory RENY [facility] Start: 05-24-2023 Orders Only Reny barlow ALL SOURCE INTELLIGENCE ANALYST-OFFICE MANAGER RECEPTIONIST Work Phone: [facility] Comment on above: Herniated lumbar int ervertebral disc (Primary Dx); Lumbar radiculopathy, chronic Start: 05-23-2023 End: 05-23-2023 ambulatory Tee Peterson Facility:[facility] Start: 05-23-2023 End: 05-23-2023 ambulatory MD Tee Peterson Work Phone: [facility] Work Phone: Start: 05-23-2023 End: 05-23-2023 Departed Referred MD Tee Peterson Work Phone: [facility] Start: 05-19-2023 End: 05-20-2023 ambulatory RENY [facility] Start: 05-16-2023 End: 05-16-2023 ambulatory [facility] Start: 05-16-2023 End: 05-16-2023 Office outpatient new 30 minutes Rohit Smith MD Work Phone: [facility] Comment on above: 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); Finger injury, right, initial encounter Start: 05-15-2023 Orders Only Reny barlow ALL SOURCE INTELLIGENCE ANALYST-OFFICE MANAGER RECEPTIONIST Work Phone: [facility] Comment on above: Herniated lumbar int ervertebral disc (Primary Dx) Start: 05-10-2023 End: 05-10-2023 ambulatory Johnathon Winter Other [employer] Other Start: 05-10-2023 Encounter by kriss Winter [facility] Start: 05-10-2023 Non-patient / Non-visit MD Jones Work Phone: [facility] Work Phone: Start: 05-04-2023 End: 05-05-2023 ambulatory RENYCHELSEA NO [facility] Start: 05-04-2023 End: 05-04-2023 Office outpatient visit 10 minutes Oswaldo Dee RAND CEMENTER Work Phone: [facility] Comment on above: 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 Start: 04-14-2023 End: 04-14-2023 Orders Only Serina Rodriguez [facility] Comment on above: Back pain, unspecifi ed back location, unspecified back pain laterality, unspecified chronicity (Primary Dx) Start: 04-12-2023 End: 04-12-2023 ambulatory Johnathon Winter Other [employer] Other Start: 04-12-2023 Telephone encounter Johnathon Winter [facility] Start: 04-11-2023 End: 04-11-2023 ambulatory Johnathon Winter Other [employer] Other Start: 04-11-2023 Telephone encounter Johnathon Winter [facility] Start: 04-10-2023 End: 04-10-2023 ambulatory Johnathon Winter Other [employer] Other Start: 04-10-2023 Encounter by kriss burgos Johnathon Winter [facility] Start: 03-16-2023 End: 03-16-2023 ambulatory OSWALDO DEE Not Available Start: 03-09-2023 End: 03-09-2023 ambulatory Johnathon Jay Maggy Facility:[facility] Start: 01-30-2023 End: 01-30-2023 ambulatory Johnathon Winter Other [employer] Other Start: 01-30-2023 Telephone encounter Johnathon Winter [facility] Start: 01-02-2023 End: 01-02-2023 ambulatory Johnathon Winter Other [employer] Other Start: 01-02-2023 Office outpatient vi sit 15 minutes Johnathon Winter [facility] Start: 12-09-2022 End: 12-09-2022 ambulatory Johnathon Winter Other [employer] Other Start: 12-09-2022 Telephone encounter Johnathon Winter [facility] Start: 12-08-2022 End: 12-08-2022 ambulatory Johnathon Winter Other [employer] Other Start: 12-08-2022 Telephone encounter Johnathon Winter [facility] Start: 2022 End: 2022 ambulatory Johnathon Winter Other [employer] Other Start: 2022 Office outpatient ne w 30 minutes Johnathon Winter [facility] Start: 10-11-2022 End: 10-11-2022 Emergency department patient visit JOHNATHON WINTER [facility] Start: 10-11-2022 End: 10-11-2022 Emergency department patient visit Roxie Garcia MD Work Phone: [facility] Comment on above: Sprain of right ankl e, unspecified ligament, initial encounter (Primary Dx) Start: 07-11-2022 End: 07-11-[address] SANJEEV LOPEZ . Facility:[facility] Start: 04-29-2022 End: 04-30-[address] SANJEEV LOPEZ . Facility:[facility] Start: 02-16-2022 End: 02-16-2022 Emergency department patient visit JOHNATHON WINTER [facility] Start: 01-03-2022 End: 01-03-2022 Emergency department patient visit JOHNATHON WINTER [facility] Start: 01-03-2022 End: 01-03-2022 Emergency department patient visit Teo Thomas DO [facility] Comment on above: Gastroenteritis (Neetu emil Dx) Start: 08-19-2021 End: 08-19-2021 Emergency department patient visit Radha Sanders MD Work Phone: [facility] Comment on above: Herniated lumbar int ervertebral disc (Primary Dx) Procedures Date Procedure Procedure Detail Performing Clinician Start: 06-12-2023 Follow-up visit Follow-up ROHIT CAMEJO V Start: 10-11-2022 Radex ankle complete minimum 3 views Bailee Lew ALL SOURCE INTELLIGENCE ANALYST - OFFICE MANAGER RECEPTIONIST Work Phone: Start: 01-03-2022 Urinalysis microscop ic only Zachariah Foster ALL SOURCE INTELLIGENCE ANALYST - RAND CEMENTER Work Phone: Start: 01-03-2022 Urnls dip stick/tabl et rgnt auto w/o microscopy Zachariah Foster ALL SOURCE INTELLIGENCE ANALYST - RAND CEMENTER Work Phone: Start: 01-03-2022 Ct abdomen & pelvis w/contrast material Zachariah Foster ALL SOURCE INTELLIGENCE ANALYST - RAND CEMENTER Work Phone: Start: 01-03-2022 Assay of lipase Zachariah Foster ALL SOURCE INTELLIGENCE ANALYST - RAND CEMENTER Work Phone: Start: 12-01-2021 Adult depression screening assessment Smallsbenji Rodriguez Mina Start: 08-19-2021 Ct lumbar spine w/o contrast material Radha Sanders MD Work Phone: Plan of Treatment Date Care Activity Detail Author Start: 06-11-2024 Adult BMI Screening Adult BMI Screen ing [facility] Start: 06-11-2024 Tobacco Screening Tobacco Screening [facility] Start: 05-16-2024 Adult BMI Screening Adult BMI Screen ing [facility] Start: 05-16-2024 Tobacco Screening Tobacco Screening [facility] Start: 05-08-2024 Adult BMI Screening Adult BMI Screen ing [facility] Start: 05-08-2024 Tobacco Screening Tobacco Screening [facility] Start: 04-14-2024 Adult BMI Screening Adult BMI Screen ing [facility] Start: 04-14-2024 Tobacco Screening Tobacco Screening [facility] Start: 07-19-2023 End: 07-19-2023 Patient encounter procedure 07/19/2023 1:45 PM EDT Office Visit [facility] [address] [place] [address] Vishal Martin DO [address] [place] [address] [facility] Start: 07-17-2023 End: 07-17-2023 Patient encounter procedure 07/17/2023 10:00 AM EDT Office Visit [facility] [address] [place] [id number] Sanjeev Lopez DO [address] [place] [address] [facility] Start: 06-12-2023 End: 06-12-2023 Patient encounter procedure 06/12/2023 10:05 AM EDT Office Visit [facility] [address] [place] [phone] Rohit Smith MD [address] [place] [address] [facility] Start: 05-19-2023 End: 05-19-2023 Patient encounter procedure 05/19/2023 10:[address] [facility] [address] [place] [phone] [facility] Start: 05-16-2023 End: 05-16-2023 Patient encounter procedure 05/16/2023 1:45 PM EST Office Visit [facility] [address] [facility] [address] [place] [phone] Rohit Smith MD [address] [place] [address] [facility] Start: 05-08-2023 End: 05-08-2023 Patient encounter procedure 05/08/2023 1:30 PM EST Office Visit [facility] [address] [facility] [place] [phone] Reny No, ALL SOURCE INTELLIGENCE ANALYST-OFFICE MANAGER RECEPTIONIST [address] [facility] [address] [place] [address] [facility] Start: 04-14-2023 End: 04-14-2024 XR Lumbar spine Views W flexion and W extension X-ray spine lumbar ap, lateral, flexion and extension only Imaging Routine Back pain, unspecified back location, unspecified back pain laterality, unspecified chronicity Expected: 04/14/2023, Expires: 04/14/2024 [facility] Work Phone: Comment on above: Expected: 04/14/2023 , Expires: 04/14/2024 Start: 12-02-2022 Influenza vaccination Influenza Vacc ine [facility] Start: 12-01-2022 Depression Screening Depression Scre ening [facility] Start: 11-01-2022 Influenza vaccination Flu vaccine (# 1) [facility] Start: 09-03-2022 Adult BMI Follow Up Plan Adult BMI Follow Up Plan [facility] Start: 12-02-2021 Influenza vaccination Flu vacc ine (Season Ended) [facility] Start: 11-01-2021 Influenza vaccination Flu vaccine (# 1) [facility] Start: 2017 Diabetes screen Diabetes screen [facility] Start: 2012 Screening for malignant neoplasm of cervix [facility] Start: 12-01-2003 Screening for malignant neoplasm of cervix Pap smear [facility] Start: 2001 DTaP,Tdap and Td Vaccines (1 - Tdap) DTaP,Tdap and Td Vaccines (1 - Tdap) [facility] Start: 2001 DTaP/Tdap/Td vaccine (1 - Tdap) DTaP/Tdap/Td vaccine (1 - Tdap) [facility] Start: 2000 Hepatitis C screening Hepatitis C sc reen [facility] Start: 1994 Depression Screen Depression Screen [facility] Start: 12-01-1987 COVID-19 Vaccine (1) COVID-19 Vaccin e (1) [facility] Start: 12-01-1983 Varicella vaccine (1 of 2 - 2-dose childhood series) Varicella vaccine (1 of 2 - 2-dose childhood series) [facility] Start: 06-01-1983 COVID-19 Vaccine (#1) COVID-19 Vacci ne (#1) [facility] Payers Date Payer Category Payer Self-pay 2022 Unknown [id number] 2022 Unknown [id number] 2020 Unknown [id number] 1.2.8 [id number] 1982 Unknown [id number] 2.16.84 [id number] 1982 Unknown [id number] 2.16.84 [id number] 1982 Unknown [id number] 2.16. [id number] 1982 Unknown [id number] 2.16. [id number] 1982 Unknown [id number] 2.16. [id number] 1982 Unknown [id number] 2.16.8 [id number] 1982 Unknown [id number] 2.16.8 [id number] 1982 Unknown [id number] 2.16.8 [id number] 1982 Unknown [id number] 2.16.8 [id number] 1982 Unknown [id number] 2.16.8 40.1.766559.3.579.2.1285 1982 Unknown [id number] 2.16.84 0.1.487653.3.579.2.128 1982 Unknown [id number] 2.16.84 0.1.780044.3.579.2.9 1982 Unknown [id number] 2.16.84 0.1.912453.3.579.2.9 1982 Unknown [id number] 2.16.84 [id number] 1982 Unknown [id number] 2.16.84 [id number] 1982 Unknown [id number] 2.16.84 [id number] 1982 Unknown [id number] 2.16.840 .[id number] 1982 Unknown [id number] 2.16. [id number] 1982 Unknown [id number] 2.16. [id number] 1982 Unknown [id number] 2.16. [id number] 1982 Unknown [id number] 2.16.8 [id number] 1982 Unknown [id number] 2.16.8 [id number] 1959 Unknown [id number] Social History Date Type Detail Facility Start: 06-15-2015 End: 03-31-2022 Tobacco smoking status FLIS Never smoked tobacco [employer] Start: 06-15-2015 End: 03-31-2022 Tobacco use and exposure Smokeless tobacco non-user [employer] Phone: Start: 08-19-2021 End: 06-12-2023 Alcohol intake Current non-drinker of alcohol (finding) [employer] Phone: Start: 05-14-2020 End: 08-19-2021 Alcohol intake [employer] Start: 06-15-2015 History SDOH Alcohol Comment rarely [employer] Phone: Start: 1980 Sex Assigned At Not on file [employer] Phone: Start: 08-09-2021 End: 01-03-2022 Exposure to SARS-CoV-2 (event) Not sure [employer] Phone: History of tobacco use Passive smoker [facility] [employer] Phone: Start: 05-14-2020 End: 04-14-2023 Sex Assigned At [facility] [employer] Funding Adolescent depressio n screening assessment 0 [facility] Start: 05-04-2023 Alcohol intake Ex-drinker (finding) [facility] Start: 10-09-2022 Alcohol Comment Alcohol: 1 or 2 drinks on typical day/monthly or less. Caffeine: 1-2 cups/day tea [facility] Start: 1980 Sex Assigned At Female [facility] Start: 09-21-2022 Gender identity Identifies as female gender (finding) [facility] Start: 09-21-2022 Sexual orientation Heterosexual (finding) [facility] Clinical Notes 08-19-2021 to 08-23-2023 Rohit Metzger MD - 06/12/2023 10:05 AM Russell Metzger MD - 05/16/2023 1:45 PM EST Note Date & Type Note Facility 08-23-2023 Note Patient Education Ma terials Follows: Hypertension, Adult High blood pressure (hypertension) is when the force of blood pumping through the arteries is too strong. The arteries are the blood vessels that carry blood from the heart throughout the body. Hypertension forces the heart to work harder to pump blood and may cause arteries to become narrow or stiff. Untreated or uncontrolled hypertension can lead to a heart attack, heart failure, a stroke, kidney disease, and other problems. A blood pressure reading consists of a higher number over a lower number. Ideally, your blood pressure should be below 120/80. The first ( top ) number is called the systolic pressure. It is a measure of the pressure in your arteries as your heart beats. The second ( bottom ) number is called the diastolic pressure. It is a measure of the pressure in your arteries as the heart relaxes. What are the causes? The exact cause of this condition is not known. There are some conditions that result in high blood pressure. What increases the risk? Certain factors may make you more likely to develop high blood pressure. Some of these risk factors are under your control, including: ? Smoking. ? Not getting enough exercise or physical activity. ? Being overweight. ? Having too much fat, sugar, calories, or salt (sodium) in your diet. ? Drinking too much alcohol. Other risk factors include: ? Having a personal history of heart disease, diabetes, high cholesterol, or kidney disease. ? Stress. ? Having a family history of high blood pressure and high cholesterol. ? Having obstructive sleep apnea. ? Age. The risk increases with age. What are the signs or symptoms? High blood pressure may not cause symptoms. Very high blood pressure (hypertensive crisis) may cause: ? Headache. ? Fast or irregular heartbeats (palpitations). ? Shortness of breath. ? Nosebleed. ? Nausea and vomiting. ? Vision changes. ? Severe chest pain, dizziness, and seizures. How is this diagnosed? This condition is diagnosed by measuring your blood pressure while you are seated, with your arm resting on a flat surface, your legs uncrossed, and your feet flat on the floor. The cuff of the blood pressure monitor will be placed directly against the skin of your upper arm at the level of your heart. Blood pressure should be measured at least twice using the same arm. Certain conditions can cause a difference in blood pressure between your right and left arms. If you have a high blood pressure reading during one visit or you have normal blood pressure with other risk factors, you may be asked to: ? Return on a different day to have your blood pressure checked again. ? Monitor your blood pressure at home for 1 week or longer. If you are diagnosed with hypertension, you may have other blood or imaging tests to help your health care provider understand your overall risk for other conditions. How is this treated? This condition is treated by making healthy lifestyle changes, such as eating healthy foods, exercising more, and reducing your alcohol intake. You may be referred for counseling on a healthy diet and physical activity. Your health care provider may prescribe medicine if lifestyle changes are not enough to get your blood pressure under control and if: ? Your systolic blood pressure is above 130. ? Your diastolic blood pressure is above 80. Your personal target blood pressure may vary depending on your medical conditions, your age, and other factors. Follow these instructions at home: Eating and drinking ? Eat a diet that is high in fiber and potassium, and low in sodium, added sugar, and fat. An example of this eating plan is called the DASH diet. DASH stands for Dietary Approaches to Stop Hypertension. To eat this way: ? Eat plenty of fresh fruits and vegetables. Try to fill one half of your plate at each meal with fruits and vegetables. ? Eat whole grains, such as whole-wheat pasta, brown rice, or whole-grain bread. Fill about one fourth of your plate with whole grains. ? Eat or drink low-fat dairy products, such as skim milk or low-fat yogurt. ? Avoid fatty cuts of meat, processed or cured meats, and poultry with skin. Fill about one fourth of your plate with lean proteins, such as fish, chicken without skin, beans, eggs, or tofu. ? Avoid pre-made and processed foods. These tend to be higher in sodium, added sugar, and fat. ? Reduce your daily sodium intake. Many people with hypertension should eat less than 1,500 mg of sodium a day. ? Do not drink alcohol if: ? Your health care provider tells you not to drink. ? You are , may be , or are planning to become . ? If you drink alcohol: ? Limit how much you have to: ? 0?1 drink a day for women. ? 0?2 drinks a day for men. ? Know how much alcohol is in your drink. In the [place] one drink equals one 12 oz bottle of beer (355 mL), one 5 oz glass of wine (148 mL (more content not included)... [facility] 06-12-2023 History of Present illness Narrative 06/12/2023 [...] take another few months to subside. Recommended kgye-nwf-wqqjyre pain relievers as needed. She is content [...] of the aforementioned history prepared by the advance practice provider, and I personally performed the [...] any severe symptoms. documented in this encounter [email or web address]16[facility]2023 History of Present illness Narrative [facility] Chief Complaint: [...] a snap. She initially followed up with [facility] and was diagnosed with right ring [...] External notes reviewed: I reviewed notes from [facility]. Review of test/study reports: I reviewed an x-ray obtained of the right ring finger. There were no acute osseous abnormality such as fracture dislocation. My personal interpretation of tests: I personally viewed and interpreted X-rays from [facility] as above. Xrays done in office today: None. Assessment: 1. Mallet deformity [facility] right [facility] [place], [place] 2. Finger injury, right, initial encounter - [facility] [place], [place] Plan: I discussed treatment options with [...] with her flexion. documented in this encounter [facility] 05-10-2023 Evaluation note Encounter Date Diagnosis Assessment Notes May, Adult ADHD (attention deficit hyperactivity disorder) (ICD-10 - F90.9) [employer] Other 02-01-2024 History of Present illness Narrative* Oswaldo Dee, PRADEEP - 05/04/2023 10:00 AM EST Chief Complaint [...] finger for about 2 weeks. [facility] due to having numbness in finger and unable to straighten it. Had XR at . On 03/13, pt went to [facility] and had another XR. Unable to get into hand specialist at [facility] until May 16. Continues to have [...] crooked. PT is RT handed Prior [place]: [facility] 03/09/23, XR, [place], [facility], XR 03/13/23, Ice, Heat, IBU, [place] ALLERGIES: No Known Allergies HOME MEDICATIONS: Current Outpatient Medications Medication Instructions amphetamine-dextroamphetamine (Adderall) 20 MG tablet 1 TABLET ORALLY MID DAY 30 DAYS cyclobenzaprine (Flexeril) 10 MG tablet PLEASE SEE ATTACHED FOR DETAILED DIRECTIONS fluconazole (DIFLUCAN) 100 mg, Oral, Daily nystatin (Mycostatin) [id number] UNIT/GM powder APPLY TO AFFECTED AREA TOPICALLY [...] normal Pronation: normal Supination: normal Muscle Strength Proofer Apprentice: 3/5 Other Erythema: absent Pulse: present Comments: [...] develop for requiring urgent evaluation. Oswaldo Dee APRN-OFFICE MANAGER RECEPTIONIST documented in [facility] encounter[id number] Evaluation note* Encounter Date Diagnosis Assessment Notes Treatment Notes Treatment Clinical Notes Apr, Adult ADHD (attentio n deficit hyperactivity disorder) (ICD-10 - F90.9) [employer] [facility] Other 01-10-2024 Evaluation note* Encounter Date Diagnosis Assessment Notes Treatment Notes Treatment Clinical Notes Apr, Adult ADHD (attentio n deficit hyperactivity disorder) (ICD-10 - F90.9) [employer] [facility] Other 01-09-2024 Evaluation note* Encounter Date Diagnosis Assessment Notes Treatment Notes Treatment Clinical Notes Apr, Adult ADHD (attentio n deficit hyperactivity disorder) (ICD-10 - F90.9) [employer] [facility] Other 01-08-2024 Evaluation note* Encounter Date Diagnosis Assessment Notes Treatment Notes Treatment Clinical Notes Apr, Adult ADHD (attentio n deficit hyperactivity disorder) (ICD-10 - F90.9) [employer] [facility] Other 12-07-2023 NotePatient Education Materials Follows: Mallet [...] or lying down. General instructions ? Take fspm-tyc-axqcnoh and prescription medicines only as told by [...] health care p (more contentnot included)...[id number] Evaluation note * Encounter Date Diagnosis Assessment Notes Treatment Notes Treatment Clinical Notes Jan, Adult ADHD (attentio n deficit hyperactivity disorder) (ICD-10 - F90.9) [employer] [facility] Other 10-02-2023 Evaluation note* Encounter Date Diagnosis [...] in 3 months or sooner if needed. [employer] [facility] Other 09-08-2023 Evaluation note* Encounter Date Diagnosis Assessment Notes Treatment Notes Treatment Clinical Notes Dec, Adult ADHD (attentio n deficit hyperactivity disorder) (ICD-10 - F90.9) [employer] [facility] Other 09-07-2023 Evaluation note* Encounter Date Diagnosis Assessment Notes Treatment Notes Treatment Clinical Notes Dec, Adult ADHD (attentio n deficit hyperactivity disorder) (ICD-10 - F90.9) [employer] Other 08-30-2023 Evaluation note* Encounter Date Diagnosis [...] Cutaneous candidiasis (ICD-10 - B37.2) Refilled diflucan. [employer] [facility] Other 07-11-2023 Hospital Discharge instructions* Discharge Instructions* RIZWAN Dietz CNP - 10/11/2022 8:08 PM EDT Please call and schedule a follow-up appointment with [facility]. Use an ice pack or bag [...] through Care Everywhere. * RICE: General Info (Indian) * Ankle Sprain (Indian) [facility]* Instructions* Radha Sanders MD - 08/19/2021 May use ice or heat, whichever feels better. May use [place] for pain. Prednisone as directed. Follow-up with [...] a follow up appointment THANK YOU!!! From [facility] and [facility] On behalf of the Emergency Department staff at [facility], I would like to thank you for giving us the opportunity to address your health care needs and concerns. We hope that during your visit, our service was delivered in a professional and caring manner. Please keep [facility] in mind as we walk with you [...] how we did during your visit at [email or web address] and let us know about your experience * Attachments The following attachments cannot be sent through Care Everywhere. * Herniated Disc (Indian) [facility] Phone: evaluation note* Diagnosis Herniated lumbar intervertebral disc- Primary Displacement of lumbar intervertebral disc without myelopathy documented in this encounter [employer] Phone: evaluation note* Diagnosis Gastroenteritis- Primary Other and unspecified noninfectious gastroenteritis and colitis documented in this encounter [facility] [employer] Phone: evaluation note* Diagnosis Sprain of right ankle, unspecified ligament, initial encounter- Primary documented in this encounter [facility] [employer] note* Diagnosis Back pain, unspecified back location, unspecified back pain laterality, unspecified chronicity- Primary documented in this encounter [facility] [employer]Evaluation noteNo InformationNort [employer] Other Evaluation note* Diagnosis 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 Pain in finger of right hand Pain in soft tissues of limb documented in this encounter [facility]* Diagnosis Herniated lumbar intervertebral disc- Primary Displacement of lumbar intervertebral disc without myelopathy [facility] note* Diagnosis 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 Finger injury, right, initial encounter documented in this encounter [facility] SystemEvaluation note* Diagnosis Herniated lumbar intervertebral disc- Primary Displacement of lumbar intervertebral disc without myelopathy Lumbar radiculopathy, chronic documented in this encounter [facility] SystemEvaluation noteNo assessment information [facility] Work Phone: Evaluation note* Diagnosis Lumbar radiculopathy, chronic- Primary Herniated lumbar intervertebral disc Displacement of lumbar intervertebral disc without myelopathy documented in this encounter [facility] SystemEvaluation note* Diagnosis 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 documented in this encounter [facility] general Narrative - Reported* Type Description Date Medical History PCOS/insulin resistant Medical History PCOS (polycystic ovarian syndrom e) Medical History Frequent headaches Medical History Gestational diabetes Medical History Prediabetes Surgical History cholecystectomy 2004 Surgical History appendectomy 2006 Surgical History Hospitalization History see surgical hx Oral [employer] Other Hospital Discharge instructions* Attachments The following attachments cannot be sent through Care Everywhere. * Gastroenteritis (Indian) [facility] [employer] Work Phone: InstructionsNot on filedocumented in this encounter [facility] SystemInstructionsNot on filedocumented in this encounter [facility] SystemInstructionsNot on filedocumented in this encounter [facility] SystemInstructionsNot on filedocumented in this encounter [facility] SystemReason for referral (narrative)* Consultation (Routine) - Pending Review Specialty Diagnoses / Procedures Referred By Contact Referred To Contact Physical Medicine and Rehabilitation Diagnoses Herniated lumbar intervertebral disc Lumbar radiculopathy, chronic Reny No APRN-RASHAUN [address] [place] [address] Vishal Martin DO [address] [place] [address] Referral ID Status Reason Start Date Expiration Date Visits Requested Visits Authorized [id number] Pending Review Specialty Services Required 05/24/2023 05/23/2024 1 1 [facility] Consultation (Routine) - Pending Review Specialty Diagnoses / Procedures Referred By Contac t Referred To Contact Pain Medicine Diagnoses Lumbar radiculopathy, chronic Herniated lumbar intervertebral disc Rney No APRN-RASHAUN [address] [place] [address] Davis Silva MD [address] [place] [address] Referral ID Status Reason Start Date Expiration Date V isits Requested Visits Authorized [id number] Pending Review 06/12/2023 06/11/2024 1 1 [facility] Advance Directives No Advanced Directives Records FoundDocuments on File Type Date Recorded Patient Cost Estimating Manager Expl anation ACP-Advance Directive ACP-Power of [employer] Architect Summary Purpose Family History No Family History [...] Follow-up Reason Comments Pain New patient chuck goinser on the right hand ring finger. Ongoing [...] site of digit, initial encounter Nicole Lockwood, ALL SOURCE INTELLIGENCE ANALYST-OFFICE MANAGER RECEPTIONIST [address] [place] [address] Rohit Smith MD [address] [facility] [address] [place] [address] Referral ID Status Reason Start Date Expiration Date Visits Requested Visits Authorized [id number] Pending Review Specialty Services Required 3 03/12/2024 [...] would not scan at bedside. Verified with [facility] prior to administration.) Scheduled Medication Order [...] mg from all sources in 24 hours. 2053 (Given - Provid er: Becky Toussaint RN) ketorolac (TORADOL) injection 30 mg (COMPLETED) 30 mg, IntraMUSCular, ONCE, 1 dose, On Mon10/11/22 at 1999, Do not administer for more than 5 days. 2051 (Given - Provid er: Becky Toussaint RN) Care Teams (unrecognized sec tion and content) Artificial Marble Worker Relationship Specialty Start Date End Date Johnathon Winter MD PCP - General Family Medicine 03/08/16 Artificial Marble Worker Relationship Specialty Start Date End Date Johnathon Winter MD PCP - General Family Medicine 03/08/16 Artificial Marble Worker Relationship Specialty Start Date End Date Johnathon Winter MD PCP - General Family [facility] 03/08/16 Artificial Marble Worker Relationship Specialty Start Date End Date Johnathon Winter MD [address] [place], [place] [id number] PCP - General 03/13/23 Artificial Marble Worker Relationship Specialty Start Date End Date Johnathon Winter MD [address] [place] [address] [phone] PCP - General Family [facility] 12/12/22 Artificial Marble Worker Relationship Specialty Start Date End Date Johnathon Winter MD [address] [place] [id number] PCP - General 03/13/23 Artificial Marble Worker Relationship Specialty Start Date End Date Johnathon Winter MD [address] [place] [id number] PCP - General 03/13/23 Artificial Marble Worker Relationship Specialty Start Date End Date Johnathon Winter MD [address] [place] [id number] PCP - General 03/13/23 Team Status: Active Member Role Status Dates Johnathon Winter MD Primary Care Provide r, Attending Provider Active Start: May 10, 2023 Team Status: Inactive Member Role Status Dates Tee Peterson MD Attending Provider Active Start: May 23, 2023 End: May 23, 2023 Artificial Marble Worker Relationship Specialty Start Date End Date Johnathon Winter MD [address] [place] [address] PCP - General 03/13/23 INFORMATION SOURCE (unrecogn ized section and content) DATE CREATED AUTHOR 07/17/2022 [facility] DATE CREATED AUTHOR AUTHOR'S ORGANIZ ATION 10/12/2022 [facility] DATE CREATED AUTHOR AUTHOR'S ORGANIZ ATION 06/01/[address] [facility] DATE CREATED AUTHOR AUTHOR'S ORGANIZ ATION 06/07/2023 [facility] DATE CREATED AUTHOR AUTHOR'S ORGANIZ ATION 06/12/2023 [facility] DATE CREATED AUTHOR AUTHOR'S ORGANIZ ATION 08/03/2023 [facility] EPIC DATE CREATED AUTHOR AUTHOR'S ORGANIZ ATION 08/10/2023 [facility] DATE CREATED AUTHOR AUTHOR'S ORGANIZ ATION 09/02/2023 [facility] Goals (unrecognized section and content) Goals may [...] BE BASED ON THE PRIMARY CLINICAL RECORDS. [employer] [facility]. provides no warranty or guarantee of the accuracy or completeness of information in this document.
== END 2023-10-25 09:05 | disposition home or self-care (01) ==
LOC: NOMS 09:05
PROVIDERS: PCP Family Medicine; Visit Provider Obstetrics & Gynecology
DX: N92.0 Excessive and frequent menstruation with regular cycle (principal)
CPT/HCPCS: 36415; 76830; 76856; 83036; 84439; 84443; 84702; 85025; 85610; 85730

== ENCOUNTER 2023-10-25 09:38 | Outpatient (OUT) | payer BC, SELFPAY ==
[2023-10-25 10:10] LABS: Estimated Average Glucose 88 mg/dL; Glycohemoglobin A1C 4.7 % (4.5-6.2)
[2023-10-25 11:22] LABS: Basophils Absolute Auto 0.1 10^3/uL (0.0-0.1); Basophils Percent Auto 1.1 % (0.2-2.0); Eosinophils Absolute Auto 0.1 10^3/uL (0.0-0.7); Eosinophils Percent Auto 2.2 % (0.9-7.0); Hematocrit 39.8 % (36.0-48.0); Hemoglobin 12.6 g/dL (12.0-16.0); Immature Granulocytes Abs Auto 0.01 10^3/uL (0.00-0.03); Immature Granulocytes Pct Auto 0.2 % (0.0-0.5); Lymphocytes Absolute Auto 1.8 10^3/uL (1.2-3.8); Lymphocytes Percent Auto 33.3 % (20.5-60.0); Mean Corpuscular HGB Conc 31.7 g/dL (29.9-35.2); Mean Corpuscular Hemoglobin 27.9 pg (26.7-34.0); Mean Corpuscular Volume 88.1 fL (81.0-99.0); Mean Platelet Volume 9.7 fL (9.5-13.5); Monocytes Absolute Auto 0.3 10^3/uL (0.3-0.8); Monocytes Percent Auto 5.4 % (1.7-12.0); Neutrophils Absolute Auto 3.2 10^3/uL (1.4-6.5); Neutrophils Percent Auto 57.8 % (43.0-75.0); Platelet Count 300 10^3/uL (150-450); Red Blood Count 4.52 10^6/uL (4.20-5.40); Red Cell Distribution Width 14.5 % (11.0-15.0); White Blood Count 5.5 10^3/uL (4.0-11.0)
[2023-10-25 11:25] LABS: Thyroid Stimulating Hormone 1.497 uIU/mL (0.358-3.740)
[2023-10-25 11:26] LABS: HCG Quantitative <1 mIU/mL
[2023-10-25 11:49] LABS: INR 0.99; Partial Thromboplastin Time 29.5 sec (22.3-36.2); Prothrombin Time 10.5 sec (9.0-11.6)
[2023-10-25 11:50] LABS: Free T4 1.24 ng/dL (0.76-1.46)
== END 2023-10-25 09:39 | disposition home or self-care (01) ==
LOC: LAB 09:42
PROVIDERS: PCP Family Medicine; Visit Provider Obstetrics & Gynecology
DX: N92.0 Excessive and frequent menstruation with regular cycle (principal)
CPT/HCPCS: 36415; 83036; 84439; 84443; 84702; 85025; 85610; 85730

== ENCOUNTER 2023-11-13 12:49 | Outpatient (OUT) | payer BC, SELFPAY ==
--- NOTE | 2023-11-13 13:25 | P.CN_ITS ---
Consult Note: HPI Data of Consult Patient: known to practice within the last 3 years Consult date: 11/13/23 Requesting Physician: Christiano Rivera MD Primary Care Provider: Radha Sanchez MD Consult Narrative Reason for consult: low back, left leg pain Narrative: 42yof who presents for assessment. has noticed worsening low back and left leg pain more recently. previously underwent lumbar epidural steroid injection, which provided >50% relief for >3 months. she continues in a series of provider directed home exercises for >6 weeks, without lasting benefit. uses ibuprofen as needed. denies adverse med side effects. cc:: CC: Christiano Rivera MD Review of Systems ROS Status of ROS 10 or more systems reviewed and unremark able except as noted in history and below [facility] Medical History (Updated 06/26/23 @ 15:30 by Christiano Rivera MD) White coat syndrome with high blood pressure without hypertension ?R03.0 - Elevated blood-pressure reading, without diagnosis of hypertension (ICD-10) Migraines ?G43.909 - Migraine, unspecified, not intractable, without status migrainosus (ICD-10) Metabolic syndrome ?E88.810 - Metabolic syndrome (ICD-10) Insulin resistance ?E88.819 - Insulin resistance, unspecified (ICD-10) History of PCOS ?Z87.42 - Personal history of other diseases of the female genital tract (ICD-10) ADHD ?F90.9 - Attention-deficit hyperactivity disorder, unspecified type (ICD-10) Surgical History S/P breast biopsy, left ?Z98.890 - Other specified postprocedural states (ICD-10) H/O tubal ligation ?Z98.51 - Tubal ligation status (ICD-10) H/O section ?Z98.891 - History of uterine scar from previous surgery (ICD-10) History of cervical cerclage ?Z98.890 - Other specified postprocedural states (ICD-10) Status post appendectomy ?Z90.49 - Acquired absence of other specified parts of digestive tract (ICD- 10) Hx of cholecystectomy ?Z90.49 - Acquired absence of other specified parts of digestive tract (ICD- 10) Meds Home Medications and Allergies Home Medications ?Medication ?Instructions ?Recorded ?Confirmed ?Type dextroamphetamine-amphetamine 20 20 mg PO .evening PRN hyperactivity 05/10/23 07/31/23 History mg tablet (Adderall) ibuprofen 200 mg tablet (Advil) 800 mg PO TID-QID PRN pain 05/10/23 07/31/23 History lisdexamfetamine 50 mg capsule 50 mg PO DAILY 05/10/23 07/31/23 History (Vyvanse) tirzepatide 7.5 mg/0.5 mL 7.5 mg subcut QWEEK 05/10/23 07/31/23 History subcutaneous pen injector (Mounjaro) Allergies Allergy/AdvReac Type Severity Reaction Status Date / Time No Known Drug Allergies Allergy Verified 07/31/23 07:30 Exam Narrative Exam Narrative: Psych-alert and oriented x 3. Attentive and appropriate, constitutionally normal, displays normal mood and affect per situation. There are no obvious deficits in memory, reasoning, or intellect.? Skin-no obvious rashes, bruising, erythema noted to the patient's area of pain.? Extremities- extremities are warm with minimal edema and palpable pulses. Lumbar-tenderness to palpation noted in the lumbar spine and paraspinal musculature. Pain is not elicited with flexion, extension, and lateral rotation of the lumbar spine. Range of motion is not diminished with these motions. Facet loading maneuvers are negative.? Strength-noted to be unremarkable with the exception of decreased strength rated at 4 out of 5 in left quadriceps femoris, anterior tibialis. Sensory-no notable sensory deficits in the bilateral lower extremities to touch or pinprick in all dermatomal distributions with the exception to decreased s ensation to the left L4, 5 dermatomal distribution Coordination remains intact.? Gait remains non-antalgic. Assessment and Plan Assessment and Plan (1) Lumbar stenosis with neurogenic claudication: (2) Lumbar disc displacement without myelopathy: Plan 42yof who presents for assessment. failed conservative measures, as noted. imaging reviewed, which is consistent with disc bulging and stenosis at l4-5 and l5-s1. given symptoms and imaging, coupled with previous relief, it is prudent to attempt left l4-5, l5-s1 tfesi under fluoroscopic guidance. she is in agreement. meds reviewed, no changes. follow up after procedure.
== END 2023-11-13 12:50 | disposition home or self-care (01) ==
LOC: PM 12:50
PROVIDERS: PCP Family Medicine; Visit Provider Anesthesiology
DX: M48.062 Spinal stenosis, lumbar region with neurogenic claudication (principal); M51.26 Other intervertebral disc displacement, lumbar region
CPT/HCPCS: G0463

== ENCOUNTER 2023-11-15 10:49 | Outpatient (OUT) | payer BC, SELFPAY ==
--- NOTE | 2023-11-15 10:53 | MM_ITS ---
Patient Name: CHAR ANN MR#: [id number] : 1980 Exam Date: 11/15/2023 Ordering Doctor: DR Sanjeev Lopez . RADIOLOGY REPORT PROCEDURE: MM TOMOSYNTHESIS DIAGNOSTIC LT COMPARISON: MM STEREOTACTIC LOC LT, 05/23/2023. MM POST BIOPSY LT, 05/23/2023. INDICATIONS: Status Post Left Breast Biopsy Z98.890 Calculator Name NCI Breast Cancer Risk Assessment Tool 5 Year Breast Cancer Risk 0.80% Lifetime Breast Cancer Risk 11.00% Personal Breast Cancer No Personal Ovarian Cancer No Treatments None Family Cancers Grandmother-maternal with stomach cancer at age 65. LOCATION: [facility] BREAST COMPOSITION: There are scattered areas of fibroglandular density. FINDINGS: DIAGNOSTIC CATEGORY 2--BENIGN FINDING. NO CHANGE FROM COMPARISON. Stable micro clip marker lower inner quadrant, mid breast. No new areas of suspicious calcification, architectural distortion or mass. RECOMMENDATIONS: ROUTINE MAMMOGRAM AND CLINICAL EVALUATION IN 12 MONTHS. PLEASE NOTE: A NORMAL MAMMOGRAM DOES NOT EXCLUDE THE POSSIBILITY OF BREAST CANCER. A CLINICALLY SUSPICIOUS PALPABLE LUMP SHOULD BE BIOPSIED. Dictated by: Mj Silva MD on 11/15/2023 at 11:23 Approved by: Mj Silva MD on 11/15/2023 at 11:25
--- OUTSIDE RECORDS SUMMARY | 2023-11-15 11:13 | XMS_ITS | CCD ---
Author Organization [facility] Care Team Providers Care Individual Pension Consultant Name Role Phone Johnathon Winter MD Primary [...] Unavailable Johnathon Winter MD Primary Care Provider [phone] MD Tee Peterson Attending Provider Tee Peterson [...] Bhavin Montgomery MD Primary Care Unavailable Miguel ÁSNCHEZ, Christiano Mcgovern Attending Unavailable Miguel SÁNCHEZ, Christiano [...] 05/01/2023 05/15/2023 [facility] Fluconazole 100 MG 1 [...] Start: 2022 take 1 capsule by mo [facility] every twenty-four hours Vyvanse 30 MG 1 [...] once a week. 0 02/27/2023 Active nystatin 478496 unt/ml topical cream (9 sources) Polyene Antifungal Start: 05-01-2023 End: 04-30-2024 nystatin (Mycostatin) cream Indications: Follow-up encounter involving medication , Superficial skin infection Apply topically 2 (two) times a day 30 g 3 05/01/2023 04/30/2024 Active Start: 04-14-2023 nystatin (MYCO STATIN) powder Apply 1 Application topically in the morning and 1 Application before bedtime. 0 04/14/2023 Active Start: 04-14-2023 nystatin (Myco statin) 858356 UNIT/GM powder Indications: Skin irritation APPLY TO [...] days 20 tablet 0 08/19/2021 08/29/2021 Active Bvt-Ipk-QX-Fish Oil ([facility]) 0.4-113.5 MG CHEW (2 sources) Tsk-Rqh-PP-Fish Oil ([facility] GUMMY) 0.4-113.5 MG CHEW Take [...] Coding Summaryon 09-01-2023 Coding Summary HTMLBase 64 QzdcdzfbNMn3aAc+PGhlYWQ+ FK9IYVYdS46bwENbnD2sD7BD TElOSywgQVBQTElOSyIgbmFt HF3moPYeHTYk IC8+CF3xPADhQmwamWHmw7Y6 oVL8J19ydi5hKFkcbWI4VXIq FkWsymkjl9lxkGv4QNmbXfzb OyBt XLRnmW08LKX3mH09Kl23wAOw kBNvt6tsdMb4KyOoEQPwSCD4 dUwdOKhsv2QgTBUyO65yjUIl c2U6 WIQfaWrvrKMuLkYdeAQ0nR0x FFrxbsjpc7ldfomyVqv2xf25 bMCes7O9vGD4R3EgjvL6JCAx bGQg PpkbjOHRlL1hoyqbe4fgttnk TrMbIBZpYPb5UFw2PRAzaLbu SjBeTA56QDB5EQIunlQtZ0Lo LWFs oKouHhQ9v0P6Cy2GB1CJQhzm C8MMHWVGWJzuwFY+FT67ia93 J8YlSjmcWse9QZLmVCP0wIF3 aD0n MFAeVTxsm1W6tIE0T3JunkRe tr1gn7lsXHDhKWooT85qhFTu r7K8BMNbnKI7ZLBhjJpjShQr aG93 Oyc+PHEkuEylh1CzUqaol0fa v0nzwAj6AbcxBGPvyqOukPcl VTG7j6ArRd3dRRWyaJD1xTU8 aD0i ZpKeWlH6ERpxD944TrBupCUj IhpaW81zO7BtqVW+PHRyPjx0 GYJdnNrtIZ5yW3MvEBTsqjyd bGVm bQyqYQ1zVGCytbdeOFWdrX4y XGDiT5h9WpJxAtA7JZysR4Vh AKFeuaraDl26dB2jEnPhYnF6 MGlu A7SjndS0FDVhkLTaIOigLUH5 Q76uh2F6LCPsUTKcOBT0tUN1 eB7yeXeywrvkvWGynVymmmPj dGlj RYqtTHtlC927IUNsuYhkIzWw ZGluZyBEYXRlOiAgMDUvMzEv MjAyNDwvdGQ+VCXuPEZ5sWfq PSAn gLBgXLuiEl3uuQdyaEwsNG4s EJMbehnwJYSdyG0sZYMkoRSe mWxdSW5qDPNaykffr414RlYb MHB0 AQSflSUbR5VhkA4lXzUbQREu RGReP6PvpSBbRRhnE749LKoi HeU9AUCjrkZpD1YlGIOjoQsa OiB0 y4H5Pc5Dx4CkwzflT0QnqTBr YdMcDfrcNOr0O5SlRckbyVZ+ CL19SHIaRK56MVd5NBM2tZah PSdi EGYjN8TqzT8vKjPrGRIoLAPp Oyc+PHRhYmxlIHdpZHRoPScx ZXPsQjCriKmbYZ2dBq5cZPTe LWNv jKzzhNNnRgQgf1wkXKFhWDzy II6wqHwzG9QyrJF2YMUhm5q5 Hs89K17jH9CkvKU+PGNvbCB3 aWR0 aB2vTmIaJnR8ERqwA819SvBx zUAaUwmbd3yrq5ixpAi1OkM5 VDFngaPedNpsQOU3v1EeBp32 Y29s IHdpZHRoPSIxNSUiIHZhbGln gs8boZ0tYi8+EGIcgJU8zDO5 mO7hEyBlOmA9AYqvH603TpVh cCIv Wriyp9ynf0gjaOe8PnMiFSZh cjOpcIitXQA7y9GyIj85V5Qi mUwxc2LwOij6lm12oZGlb8B9 bGU9 L1JmSSCtnaldgOAatZimAM0q VVYtadnmFSAslH6qPEVyK6r2 ZiLsBzA4SYskQ6HlwcP6ROXe bGQg XARdnJLYjY9jlrntn0unfglx GqIpTAOkGOm1WVz4ZPQaiPrw ToUpECX4JsR6UST9iWCspE9d bGln wmrzjK6sOrl+HIT2gWGepQGP ZO6xCjvsyKE+ZRXgJAG9yJwq NPybOFJkkJ6yRBYlG0q7OwLh LjA1 BOyzS8IeakU7VMCmfDJiRCYh vDMKmQ1mgutqy2vnceqnKqCa FVNhICn5DDv1SSYihLwdPkPf ZWZ0 CgN8EFK9oGLssL2qkFmgxefq nP5aNqo+KhlhmCjpPNS8QRh7 T0BzIri5ZTAicYxoZB2amGEz ZGlu Gx9mcSyxcVwpXQ3aOAUmrnfb s086GhXkd8nqQJVaqVGqYRwx BCP6R42kl8H7VHGzTGXwKHG5 dGV4 mO6peXijpidwwAKhpIkdzkSs lLwrWUldCZkmQ484UCGjnDov XxKhMWc1J7TqEox1TFLwdHhi ZT0n uPUbJMvnEy8fpPbdrRolOY4t GKDmmcgoz974YxRob4mpCUCl vVWoEWqhZQD9P31lw7V4DRSc MDAw IMN0nMN5jD9vwMypjjtltHTf jEuerhMpbAwaQIbkACnkS356 EGDtoFlsVyToeYf1S4PnMee3 ZCBz uHslTS0prFDtQCovXq0cfOnw uByuYO6xCWIjeshyt591WfAv e2vdENBjfRZeXDfgIRY5G48e b3I6 VTHxCGRwFGZ3oPT5xD7uoQdz bjogbGVmdDsgdmVydGljYWwt IImuN085YYLwyKodJhDiyDzm bnQg FDmoJNv8C3BiZsryzDK+PC90 QHQfVZ93jHFjkBFbq0hjyAm3 LjUqIIBmWEF4kKbaOAxil7Ex ZXIt A28woNEbf3T0CGAqyKjbdNMk HgHstFI0mI6gOEpxhpsiy6sl rqbiIqnip0iuap05nE28C04e IHdp TMDuIEHvJHMdDNJcgYjnxb0d bD0aNn3+LXVlgWP1vWE3cM6z UWDqLtV3PYtfU374HwNwlXVg Pjxj i7esk1mboPf5NqU8ZAIhzjVl kIyaFZJ3w9OxCo72X47oKSdh FSFkQIGmRSFsQJDlrXefjy7a dG9w Ii8+VPPwaYL8zIK9hI8jKhHt CiD2TPfiC591DdZvdLWdItxl A45pI9PewHD+SESeWlv7WFRo dHls UM8hjFEgOYstSv1jUHV0IcHh HqSuWNhmM2AoOQZsyryxbhtd rKB1QRUzNTXzaY14Dr9gzKlc MTBw mIBZtB8sucnhz3fdmffuNuUf EZAcVEb0OCf3IMOgxGlyLaOp TKX9CbG4DGF8zBDbnF8qbZuc bjog tO4wX5ReLLDbvfxaSs86dP4i BcXuZkJ7PRpxUef+L85DZ5gA LCBBTUFOREEgREFXTjwvdGQ+ PHRk HSG8lSbzEMqvNKQrdN3yNXOl Y6b5LlIzHrL0PXumE2LxCAOo jjwxWg78wV3nLyBcNoV2THfp O2Zv saV2CTHheYNdITbdJCC4H24e o1X8ZTEnZBDuYEU0eVC2fV9g bGlnbjogbGVmdDsgdmVydGlj YWwt ADelD694KOOnmFnbDhY4RfIu CeZ4EVP1T0GvSmu7XCScsItr II4raPMpWThqCm6syFvyfBfy MC4w PRVlnwzcNEImpR0xYGOxxUBt rIqkTQ8tFUXiksguq490PdMy RVC3SBIkjRImK8HmtW5cTdIz MDAw ZJZhI2NgvTDxBTsjA090AEdx LuU4DFWkjjHuU7FmTNPkdYpi HaL3j3Z3Mw50PQNUVMGyqcgj dGQ+ BAQhWGQ5wPbeULpcPLCwaD2y UFJwD3v8XsVaZtT6HAakY8Xb OYGbuytuUa81oC7wSjNxSpK8 MGlu P4StewN1WLItoDZpNLutPGD4 Y50ri6U0EUQaSJHcLDA4dNQ1 oI7juNixexpnwEQtsCstnwWr dGlj JGrhXXbdG680FZCftHjdZfOQ TUFMRTwvdGQ+LMVaFNO2wGjp NXgiBJHvlR5sRPVqC1n1GtHn LjA1 OPwuM7XlASExutkhWw49aC0y PwSgPjQ4TGirX7TefeX9ZDEj hRYtAWwuOAL3F47bi0H6YBHc MDAw TVO2cHH2cB1tuAgjqlzexHFu kYahkxXvvNqrVQkiLNdpD586 MCKcbQukZa0AXT84TM38V4Wu Pjwv dGFibGU+PHRhYmxlIHdpZHRo KXymOYNhIdXyzFjmEP9uOg0i UPEgZESmoVawcUXuHoAuv9vw YXBz LLfdZY0yoPgqO5PvcQL0MICt z7k9Tm00G48wX0UyrOR+PGNv vNX7hZC6aU9oPaZrSeA3AVvb Z249 YyTbjUFdPcadv5bhu3dzdQk2 TzMxPBPujyBbmHyfHNH8u7Hm Wi09X53wXDhpJCGsBENgOMFu IHZh uOvisk5ngT9bJj2+PGNvbCB3 hAV4dA7pNmRaBpS0BRhtG430 YmFswJHvBlbgT94oZ5OwbKB+ PHRy Ntr3GBSviHuuZU8upTFoPHsw Og1fQJP5HrDxLgUpIQkhY8Jt FVXkwvfihyqreOR5PGMbEWZf aW47 Ac3tdRdaOd8bXCHfBOR3BSRa eKEeT7FtsU5rEeBnESWbKLNj K0GuqSBqAKeqQ206QAuxSzF4 IHZl ihWwE0XfBTAbbNziBoE3v0Q7 Se1WkFqfpZEiGW9xDxLwESz0 L5VhTix1SVDfzHwzGE3sjSPw ZGlu Is8jsObfkExsDD7nHMRwlfna y164XeApl9byHUFeeKXeIPdw NVH9I48ui3D3EZEoCVEyLYG7 dGV4 fY4hnLlckesuvALplIeavrQg wWmaZStkOVooZ682ZLYgmWfo UeLFYep3D6TaJnl5FTMblGmr ZT0n gDUvQSnpIz3ygXagbQrlFR0x RUVnxheii938UrRxz3pqPWAo xXNaEHtwXMW1U67re4V6YMXm MDAw EZX4xXT3hO3ulYymfjmpnWQq kJosyxWegVsnUVemKLudA976 DGNcgVftAx8LDgm7F4BaJrs0 ZCBz bHumGE7bhVJeTAniUc1fwOvq fNjeYU5bBFHkpjxok069BmXi c1pgFDQkjTYgDZfgDLM1Z64e b3I6 RFAqVEHtTBJ6lCR4jK8vqDdo bjogbGVmdDsgdmVydGljYWwt PFjmZ245QLHgsOlwZxMxrLHy Ojwv dGQ+EC62ob73Q4BpGbhhEmd5 EFRaLYC3gFF3nP8nDBFaJMps n4X5hFH7R3GxlrThyf2cp2rd YXBz ZTo (more content not included)... Normal [facility] ED Clinical Summaryon 2023 ED Clinical Summary [facility] ? Urgent Care [address] [place] [address] Clinical Summary PERSON INFORMATION Name: KARUNA DUMONT Age: 42 Years Sex: FEMALE : 1980 MRN: Acct#: Visit Reason: Skin problem; RASH ON ARMS Arrival: 08/23/2023 14:45:23 Discharge: 08/23/2023 15:20:00 LOS: 000 00:35 Check In: 08/23/2023 14:45:23 Checkout: 08/23/2023 15:20:00 Address: [address] [facility], [place] [address] PCP: Johnathon Winter MD PROVIDER INFORMATION Provider Role Assigned Unassigned Phuong Oseguera [employer] Nurse 08/23/2023 14:46:59 Yissel Resendez PA-C ED [...] Follow-Up: With: Address: When: [place] [address] [place] [id number] DIAGNOSIS: 1:Rash and nonspecific skin eruption; 2:Elevated blood pressure reading without diagnosis of hypertension Patient Understands: Comment: Normal [facility] ED Patient Summaryon 024 ED Patient Summary [facility] ? Urgent Care [address] [place] [address] PATIENT DISCHARGE INSTRUCTIONS Patient Information Name: KARUNA DUMONT Age: 42 Years Date of : 1980 Reason For Visit: Skin problem; RASH ON ARMS Arrival Time: 08/23/2023 14:45:23 Primary Care Physician: Johnathon Winter MD Attending Physician: Yissel Resendez PA-C Comment: Patient Education With: Address: When: [place] [address] [place] [address] Rash, Adult A rash is a [...] ? Impetigo. ? Fungal infections, such as Chrissy. ? Allergic reactions to food, medicines, or skin care products. Follow these instructions at home: The goal of treatment is to stop the itching and keep the rash from spreading. Pay attention to any changes in your symptoms. Follow these instructions to help with your condition: Medicine Take or apply vkfh-lys-kpdpeyu and prescription medicines only as told by [...] a bath with: ? Epsom salts. Follow stockroom associate instructions on the packaging. You can get these at your local pharmacy or grocery store. ? Baking soda. Pour a small amount into the bath as told by your health care provider. ? Colloidal oatmeal. Follow stockroom associate instructions on the packaging. You can get this at your local pharmacy or grocery store. ? Try applying baking soda paste to your skin. Stir water into baking soda until it reaches a paste-like consistency. ? Try applying calamine lotion. This is an suin-mjw-wzjxeiw lotion that helps to relieve itchiness. ? [...] rash from spreading. ? Take or apply ynzg-csz-jaxuulv and prescription medicines only as told by your health care provider. ? Contact a health care provider if you have new or worsening symptoms. ? Keep all follow-up visits as told by yo (more content not included)... [facility] 05-23-2023 L Specimen: [id number] Received: 05/24/23 Status: NATHAN Guzmán Num: [id number] Spec Type: Surgical Subm Dr: Tee Peterson MD Tissues: A BREAST CORE NO CALCS (LT BREAST) Procedures: HE/4, Gross/Micro L4, AE1-AE3/2 Age/ Patient Sex Location Account Attending Physician Karuna Dumont 42/F LABELL [id number] Tee Peterson MD SPEC NUM: [id number] RECD: 05/24/23 [facility] NUM: [id number] GENEV[place]: 05/23/23- SUBM DR: Tee Peterson MD ENTERED: 05/24/23 [facility] DR: Sandra Noel SPEC TYPE: Surgical DEPT: [...] Time: 0.10 Formalin Fixation Time: 28.50 Specimen: [id number] Received: 05/24/23 Status: NATHAN Burnsroberto Num: [id number] Spec Type: Surgical Subm Dr: Tee Peterson MD Tissues: A BREAST CORE NO CALCS (LT BREAST) Procedures: HE/4, Gross/Micro L4, AE1-AE3/2 Patient: Karuna Dumont [id number] (Continued) Specimen: [id number] Received: 05/24/23 (Continued) Signed (signature on file) Tootie Jordan MD 05/31/232105 Specimen: [id number] Received: 05/24/23 Status: NATHAN Guzmán Num: [id number] Spec Type: Surgical Subm Dr: Tee Peterson MD Tissues: A BREAST CORE NO CALCS (LT BREAST) Procedures: HE/4, Gross/Micro L4, AE1-AE3/2 Patient: Karuna Dumont [id number] (Continued) Specimen: [id number] Received: 05/24/23 (Continued) CPT Codes 12862 Specimen: [id number] Received: 05/24/23 Status: NATHAN Guzmán Num: [id number] Spec Type: Surgical Subm Dr: Tee Peterson MD Tissues: A BREAST CORE NO CALCS (LT BREAST) Procedures: HE/4, Gross/Micro L4, AE1-AE3/2 Patient: Karuna Dumont [id number] (Continued) Signed (signature on file) Tootie Jordan MD 05/31/231 [facility] MR LUMBAR SPINE WO CONTon MR [...] Yung Perry on 05/23/2023 12:47 PM Normal [facility] Free testosterone measuremen t by LC-MS/MSon 05-10-2023 Testosterone Free [Mass/Vol] 0.6 pg/mL 0.0-4.2 [facility] Comment on above: Performed at: [employer] [id number] Director: Theron Roblero PhD, Phone: [phone] at: [facility] [employer] [id number] Director: Katelynn Macdonald MD, Phone: [phone] No Panel Informationon 05-10 C-Peptide 2.8 ng/mL 1.1-4.4 [facility] Comment on above: C-Peptide reference interval is for fasting patients.Performed at: [facility] [address] [id number] Director: Theron Roblero PhD, Phone: [phone] Dehydroepiandrosterone Sulfate 194.0 ug/dL 57.3-279.2 [facility] Free Cortisol, Dialysis, LCMS 0.787 ug/dL . [facility] Comment on above: These tests were dev eloped and their performancecharacteristics determined by [facility]. They have not beencleared or approved by the Food and Drug Administration.Reference Range:8 AM 0.10 - 1.204 PM 0.042 - 0.872Performed at: [facility] [address] [place], [place] [id number] Director: Kal Archibald MD, Phone: [phone] Reverse Triiodothyronine (T3) 23.0 ng/dL 9.2-24.1 [facility] Comment on above: This test was develo ped and its performance characteristicsdetermined by [facility]. It has not been cleared orapproved by the Food and Drug Administration.Performed at: [address] [id number] Director: Katelynn Macdonald MD, Phone: [phone] Sex Hormone Binding Globulin 49.1 nmol/L 24.6-122.0 [facility] Comment on above: Performed at: [address] [id number] Director: Theron Roblero PhD, Phone: [phone] Testosterone Level 22 ng/dL 8-60 [facility] Plasma serotonin measurement (mass/volume)on 05-10-2023 Serotonin (P) [Mass/Vol] 105 ng/mL 31-207 [facility] Comment on above: This test was develo ped and its performance characteristicsdetermined by [employer]. It has not been cleared orapproved by the Food and Drug Administration.Performed at: [address] [id number] Director: Katelynn Macdonald MD, Phone: [phone] Serum estrone measurementon 05-10-2023 E1 [Mass/Vol] 65 pg/mL 27-231 [facility] Comment on above: Range Adult (Premeno pausal) 27 - 231 Menstrual Cycle (1-10 days) 19 - 149 Menstrual Cycle (11-20 days) 32 - 176 Menstrual Cycle (21-30 days) 37 - 200Performed at: [address] [id number] Director: Katelynn Macdonald MD, Phone: [phone] Serum or plasma estradiol (E 2) measurement (mass/volume)on 05-10-2023 E2 [Mass/Vol] 98.9 pg/mL . [facility] Comment on above: Adult Female Range F ollicular phase 12.5 - 166.0 Ovulation phase 85.8 - 498.0 Luteal phase 43.8 - 211.0 Postmenopausal <6.0 - 54.7 1st trimester 215.0 - >4300.0Roche ECLIA methodology Serum or plasma insulin mariam urement (units/volume)on 05-10-2023 Insulin Qn 7.0 u[iU]/mL 2.6-24.9 [facility] Comment on above: Performed at: - [facility] [id number] [place], [place] [id number] Director: Theron Roblero PhD, Phone: [phone] Serum or plasma progesterone measurement (mass/volume)on 05-10-2023 Progesterone [Mass/Vol] 0.1 ng/mL . [facility] Comment on above: Follicular phase 0.1 - 0.9 Luteal phase 1.8 - 23.9 Ovulation phase 0.1 - 12.0 First trimester 11.0 - 44.3 Second trimester 25.4 - 83.3 Third trimester 58.7 - 214.0 Postmenopausal 0.0 - 0.1Performed at: [facility] [address] [place], [place] [id number] Director: Theron Roblero PhD, Phone: [phone] Serum or plasma thyroperoxid ase antibody assay (units/volume)on 05-10-2023 TPO Ab Qn 11 [IU]/mL 0-34 [facility] Thyroglobulin [Mass/volume] in Serum or Plasmaon 05-10-2023 Thyroglobulin [Mass/Vol] <1.0 [IU]/mL 0.0-0.9 [facility] Comment on above: Thyroglobulin Antibo dy measured by [facility]ologyPerformed at: [facility] [address] [place], [place] [id number] Director: Theron Roblero PhD, Phone: [phone] XR LUMBAR SPINE AP, LATERAL, FLEXION AND [...] Yung Perry on 05/05/2023 1:28 PM Normal [facility] Coding Summaryon 03-20-2023 Coding Summary [employer] 64 VwzatzbbZHy2vMw+PGhlYWQ+ ZX5GPKXvL22drGBggU8vP3HK TElOSywgQVBQTElOSyIgbmFt UW4haSAcIAPe IC8+NG1mXMVgCzqhvNUrc2M1 wBT1G97rxx3sODwjgDP4IRVw TgBqavgog6oiuQs0TOvjTpyo OyBt TMVgcB50XOE0jJ20Zn15xRKb aJMof9ivbWy5AvZvIRQuWAL2 eKygFKkga9SoFJWuG88xiAGi c2U6 ACKyjFvrtTMtWoEbrMO7iM1o BAsmttgdf2ctnoakBfj2ol60 gZLkg7R9vZQ6F3YokxX1PRYk bGQg IsvpnHMMkG7hksokw7fzupht BgQoHNAiHCv9TVd1NDTxzMpy SrKqIB90SLQ3GPTiomDeY5Qz LWFs hQytHjO1a9O7Oa4CR5WARmub E6MTODRCPVhdsST+TF35nj10 P8FiUhifTdw5FZTtAQG6bHC3 aD0n DHAdHJelz0K6oMS9Y8LbnfQa yp4nt2rhBRJvQDayT33keOMw e7M1ZHEtcIE2ESPpmBfnDjHi aG93 Oyc+IWExbFtqr9SsPhtji5ct c2qirLl7MguzSMZnlaTfeXrr BNT2p9BhPv0jJXWntTJ1kOR3 aD0i LuVtRgN8RBahJ888MlCkvLYw QnvyU79hP0QwgPU+PHRyPjx0 QATqgMtuKV9uB8AdULLvjvso bGVm sDsvHQ7xBSLwbjouZCNocJ0c LBQaT2v0EiTpQuD9XZocJ9Hk OXWjhusuAe32sO6bYdKsCcD9 MGlu W8YxrpZ5ZXKhjBOjKQhcXPF4 J27ia5T1NHNnGAMyUJU5wNR8 yP3exPbepnvpnNOsjZgqbtJl dGlj AWfvDMmiB079CTAwtPgfXtJf ZGluZyBEYXRlOiAgMTIvMTgv MjAyMzwvdGQ+XCQpGIJ3mGcp PSAn zZUbEXpqDq0dwCuvoAnjOO6w EVArsufyBYBxdZ1xDGAkvJSs eVkyTG9uXAIcohkwd636OpAq MHB0 ANTmaIAtN9LvwD7aArYbMCDc FWCiK4MzySPoNPcsV600STpl CfH6TAPdwsHrL4JzDBHpdOnt OiB0 g2S5Fl0Fy6QqcchrP7QngHKz NaAkYpouUYi4S7SkLildcMV+ QD17EGTxTM62LKg1TOS5oDvm PSdi ECMaL9VcxY5nQmByBBRmBGPa Oyc+PHRhYmxlIHdpZHRoPScx XVKqZwSlpGbyVT2aHf3xBZMp LWNv tBdvrEYxDmEyw9hrIKClIGep NO5jtEerO3BanHD1QDQcv8y4 Xw18X87aI7BwrJZ+PGNvbCB3 aWR0 sY5dCyUfTjU7EZwaT622EnZo vTUqJgvsw9fhb4xddXe8YyC5 UBOvaiDufVfyTQW3g5PyTt18 Y29s IHdpZHRoPSIxNSUiIHZhbGln nu9jnW4uOs2+ZKVenGQ1zHM4 yK6zNeYiHgP6VKgtM964TmOo cCIv Eghvr5dsl4xdqNc0ZmOmLJUm dyEmgYtbVPN1s7UnXz31L6Fi uSfxw1KeUjy8te68eFMoe1C3 bGU9 T7DyJSHvkhgthBEmeQsxHF8b GUPsifibZSWorP6jQCMhN7o1 HmAhGwP0GKfoX5FlvjL3JBOu bGQg TTGwbFAGeT7mtffto2drxbke FrPjCXLeXDk2FEc8JNUriNws KoJrXPE5KaU8CRH0qAUviH0i bGln hidrnY8qPgy+HDS1iAHslMBD PS8kSwsheHJ+VGNuJBX8nMog KVlpQZWjuO6lSPOeS7v5SkZt LjA1 BCwhH7QhcmT3LKKtwICnTVSj oRHYmD5wwvoyu3izuopoYrYm EVMkAFf7LPs8ZBUxmDivIcGw ZWZ0 FyP1BHH1cSKbqF5bmNbmdhab lX3lWsy+OjrrmLbqRZR3QPu2 B3OjGzh4CVAxuKkuWZ1nuASy ZGlu Fo7faZqyyIdgKK0qKPJofoaz k878YsNcz6dsJKLmvYPyKIva JLE4V96wq0D7XLNyPWBbOLD8 dGV4 cD9bhSksswnroVWieAbvfwGg tZubVSznIAukP671ZJXrhLvv XjQeSJl0P4KdExk8TDIldZbm ZT0n uUUvMKgsYn8ptGmjjIqgJE8p HSTnrzrru830WcYad1kdIFZr yHZhIKuxVIN3J26jo2E9TZTn MDAw XYV2xVA8aM1odTdzfzrdxJYz dRzbcmUarEpoLApeTBppD302 ACRuaIswVtPbeCy7J9JjEvm3 ZCBz cNvxOR7fuTUwOEwyRy1jmYrd aRfyYH9rKWAaxmlhy679JyUx s5vsRURzaQFyJVkwAZE1N09w b3I6 ZTTlPWLsJMP7zDZ6lR2eyGuj bjogbGVmdDsgdmVydGljYWwt MBnqP196TVBydZdzDzMbfWgb bnQg LWvuIOd2C0BwLjlvgFK+PC90 HWDsGB54uFWdfMCnh2mtiCj9 JfEhBWHmLTW6bDfzLMgpj0Ue ZXIt S24ukZHlj5I2QFZdkXmjwXBd OtKqvLG1qC3vOOnbjxlzy0xz kdfqEfejo2rnzm53pW76A13h IHdp VEFbMVVfPONmEKHnxVbtha9x pU2vCt9+FYLzfEM9mIG4aU7u IEMbXgI6MDeeC355JcCkpRFo Pjxj l7cba3sgjYz4MxQ1PJYcbnHf wOptVPD4y4ReSp04V13lZKrk SXMvQFBtZROjJZOzkQminh4c dG9w Ii8+HXEuoMD0qDW2bI0sZfTi RhH8HXmcH854IkBkgUCyNcun Y69kE1AsoGC+XLKrPsq5VJVr dHls CG9adGCgHUcqWi3vXVX7MqDy HmScOGuhU8BzEFArblufitvf pTM8ARZsANLpdH19Zs0kiOwu MTBw lIAFbF4dqntwc3bkwcdeAtOg MSFnDPg2RKr7FIYalXciDlAs ELO8YgE2OGG9kQUamA6chNsp bjog eK8sN1HcFBVzkdwdGv71jG7y AfUjBaA9DNaeOvq+K19JS7zM LCBBTUFOREEgREFXTjwvdGQ+ PHRk YFV0hNpwVCpkVZScyV1qNRTo Q0h9DeSmZwN6GUxpG7IrPJOk xyqtIk32kC6ePaYhVoV4OFog O2Zv moZ6RUKelQGxDMkwYZS0B63d b7Z4RLPnMFZcGUY9yEE2vH1p bGlnbjogbGVmdDsgdmVydGlj YWwt LSrdZ806FGOaiKwgExA7OfUt RyK9KDO4D3YtRjc2KABdmDly ZL5maDLuHHdmMc2xoHelrCvu MC4w QBMkrmbaIOUiqY6lWTIvsEZq nSzyRC0yACHzweyik488SsEq NLC6SUEacHKzQ3OepZ0xTyLo MDAw SUUxI4QohBWiVYlfE411YJpa NwE2DXNfjpEuB0WnFNMsnBek HfP9f4A1Br11ZGRNMCJsrvwo dGQ+ AKQlRLY7uFfbNIlqMGUtjE0m WHKnT6e9SuSdOqQ9FKorW6Ke JWZymkmpSt50bO2zLzZjQaJ2 MGlu Q3OasmY0HRBteLSfYFbmVWV6 O60hv2M5ETRoRGIvRFE4yWF8 tB5pzHbxkzqfuGJzcGvrdlLe dGlj ENdvNYdtR136MXGraIdeRvEK TUFMRTwvdGQ+KZRkWTH8bIws WUpvTEIfiU4wWREoN1n5ZcQw LjA1 XMitS5QnMMXmsekgOl50lH5x JaLkEuH0JMrsF8JjhlR7UCGl eHIzDBnyAPR6Z17ks0Q9DEVj MDAw UWW0wQK6kJ8cvLfxtkipsXEi bEsxnmVfkPaeYDigANpuV934 RQRfjBvqHp4RBW81FH11V4Qv Pjwv dGFibGU+PHRhYmxlIHdpZHRo NMomCGYpVoXyoWrgUH3oDs4s AQIgOHZauFslvZHvDsWyx4nt YXBz NCbiZZ4mgZpiM0SjxIL3KEOu v7u6En78A65iH0KycQR+PGNv yFH9tOF7zG9cFxAcIcO1RUpl Z249 OeIccDMvOtrnr4cgs0uopPf4 EpVuFRMdvsYvzVprCRG9t5Oc Wq97F96jPRabQIIgFAJaJFZu IHZh vPmuye9quM1pTs9+PGNvbCB3 dSC6aN6uAsIkRdL5UAayX472 FxPkeOSwPqkrZ28wN7JwfZN+ PHRy Uau1ERHzhZnfGF5afHUrQVwj Uy6wQSM9VgUtZaBhSVtjS9Wj WRXsslbjwttcyGD5WODsWFMr aW47 Yk6zbMejOx4jDITbPWW3YNRn jTTjN7MgnY9qQsDuCUIgXGSw C8EtqDObRAcwK649NAorItT5 IHZl rrNbO2NbYEJogMkeViF2h3I3 Cr0KfShgjTLgAU8rOhHtVGx8 U1DeDiz5CCUneAanCX3lwYOy ZGlu Ul4pmRrniAtqFP6lGGJxgdxi n122DdUzb3ldMYUzlTRaZVzg EIJ9C46ih1C5PYKtCZQqOQB3 dGV4 sQ0riNbvleknkBJuoEtsquNi rQihHHqeDPhyA821QPWfcUhj AeJILqa7X9HyQiy4SOAbgTmh ZT0n kDNfCAldAt5cvLcmbCfbNI7a GDWpigkeu728FcJbo7wdRWYr zNYcMMxiZGA8B04wz9F9VKVz MDAw ONT9hAG9dJ9pcXpwuasnoYQi hKicfhJmsJmoLJttRNkjR630 TBMvyNjlEd8IWfc9D7KsAuu2 ZCBz fByhHZ9itAFxRGmsRc6xaYsy zJyrVW8cAZDifabav265PjGa s2daEUGgnDPnFCsqSPJ7U64p b3I6 CIVsFYTfJFX6yKU7wL9btCsm bjogbGVmdDsgdmVydGljYWwt XYpbG764VUXjwTncReZjnSYe Ojwv dGQ+YH98ku41Z8EzMhmmSrw8 YUEiOGY2fSA5cI7uODZxTIbb h1Y8mGN7G3BmllGymi5ve0bd YXBz ZTo (more content not included)... Normal [facility] ED Clinical Summaryon 2022 ED Clinical Summary [facility] ? Urgent Care [address] [place], [place] [id number] Clinical Summary PERSON INFORMATION Name: KARUNA DUMONT Age: 42 Years Sex: FEMALE : 1980 MRN: Acct#: Visit Reason: UC - Finger/Thumb Injury; RT RING FINGER INJURY Arrival: 03/09/2023 10:15:32 Discharge: 03/09/2023 12:03:00 LOS: 000 01:48 Check In: 03/09/2023 10:15:32 Checkout: 03/09/2023 12:03:00 Address: [address] [facility] [address] PCP: Johnathon Winter MD PROVIDER INFORMATION Provider [...] With: Address: When: YUNG LAWS DO [address] [address] Within 3 to 5 days [...] verbalizes understanding of instructions given Comment: Normal [facility] ED Patient Summaryon 023 ED Patient Summary [facility] ? Urgent Care [address] [place] [id number] PATIENT DISCHARGE INSTRUCTIONS Patient Information Name: KARUNA DUMONT Age: 42 Years Date of : 1980 Reason For Visit: UC - Finger/Thumb Injury; RT RING FINGER INJURY Arrival Time: 03/09/2023 10:15:32 Primary Care Physician: Johnathon Winter MD Attending Physician: Sanchez John Comment: Patient Education With: Address: When: YUNG LAWS DO [address] [employer] [address] [address] Within 3 to 5 [...] or cold (more content not included)... Normal [facility] Urgent Care [place] 023 Urgent Care Record [facility] ? 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 It is important for you to follow up with a doctor, nurse practitioner, or physician?s preschool teacher assistant for ongoing care. If your symptoms [...] so we can reach you if necessary. [facility] has provided you with a complete list of medications post discharge. Please inform your functional mental disability teacher/provider of your visit and for further instruction [...] of your st (more content not included)... [facility] XR Finger Righton 03-09-2023 XR Finger [...] MD 03/09/23 11:56 a Technologist: Vannesa DANGELO [facility] No Panel Informationon 10-11 No acute bony abnormalities are noted [facility] EXAMINATION: THREE XRAY VIEWS [...] well maintained. Soft tissue swelling. Calcaneal spurs [facility] Miller Romo MD - [...] IMPRESSION: No acute bony abnormalities are noted [facility] Radiology Study observation (narrative) [facility] No Panel InformationOrdered By: Miller Romo on 10-11-2022 [facility] [employer] Work Phone: XR ANKLE RIGHT (MIN 3 [...] Miller Romo MD 10/11/22 Final result Normal [facility] XR FOOT RIGHT (MIN 3 VIEWS)o [...] Miller Romo MD 10/11/22 Final result Normal [facility] PAP ACOG PANEL 2: 30 to 65on 07-16-2022 . . Normal [place] [facility] Comment on above: Result Comment: Perf ormed at: WB Performed By: #### [id number] #### [facility] [address] [address] [address] Dang Kirby Age Gdln ACOG Testing 30-65 Normal [facility] Comment on above: Performed By: #### [id number] #### [facility] [address] [place] [address] Dr. Dang Kirby DIAGNOSIS: Comment Normal [facility] Comment on above: Result Comment: NEGA TIVE FOR INTRAEPITHELIAL LESION OR MALIGNANCY. THIS SPECIMEN WAS RESCREENED PART OF OUR TUBE AND ROD STRAIGHTENER PROGRAM. Performed at: WB Performed By: #### [id number] #### [facility] [address] [place] [address] Dr. Dang Kirby HPV Aptima Negative Normal Negative [facility] Comment on above: Result Comment: This nucleic acid amplification test detects fourteen high-risk HPV types (16,18,31,33,35,39,45,51,52,56,58,59,66,68) without differentiation. Performed at: =G Performed By: #### 4 [id number] #### [facility] [address] [place] [address] Dr. Dang Kirby HPV Genotype Reflex Comment Normal [facility] Comment on above: Result Comment: Crit eria not met, HPV Genotype not performed. Performed at: WB Performed By: #### 4 [id number] #### [facility] [address] [place] [address] Dr. Dang Kirby Methodology: Comment Normal [facility] Comment on above: Result Comment: This liquid based ThinPrep(R) pap test was screened with the use of an image guided system. Performed at: WB Performed By: #### [id number] #### [facility] [address] [place] [address] Dr. Dang Kirby Note: Comment Normal [facility] Comment on above: Result Comment: The Pap smear is a screening test designed to aid in the detection of premalignant and malignant conditions of the uterine cervix. It is not a diagnostic procedure and should not be used as the sole means of detecting cervical cancer. Both false-positive and false-negative reports do occur. . Performed at: WB Performed By: #### [id number] #### [facility] [address] [place] [address] Dr. Dang Kirby Performed by: Comment Normal [facility] Comment on above: Result Comment: Flavia Stanford, Port Traffic Manager (ASCP) Performed at: WB Performed By: #### 4 [id number] #### [facility] [address] [place], [place] [address] Dr. Dang Kirby QC reviewed by: Comment Normal [facility] Comment on above: Result Comment: Valentino Victor, Port Traffic Manager Performed at: WB Performed By: #### 4 [id number] #### [facility] [id number] Dang Kirby Specimen adequacy: Comment Normal [facility] Comment on above: Result Comment: Sati sfactory for evaluation. No endocervical component is identified. Performed at: WB Performed By: #### 4 [id number] #### [facility] [id number] Dang Kirby MG MAMM DIAGNOSTIC 3D RAMA CA Don 04-29-2022 MG MAMM DIAGNOSTIC 3D RAMA CAD Patient: KARUNA DUMONT Exam Date: 04/29/2022 : 1980 Gender:F Ordering : DR SANJEEV LOPEZ . Admission #: [id number] Family : Order #: [id number] CLICK HERE TO VIEW EXAM RADIOLOGY REPORT PROCEDURE: MAMMOGRAM DIAGNOSTIC 3D BILATERAL CAD, 04/29/2022, 10:05 ULTRASOUND BREAST RIGHT LIMITED, 04/29/2022, 11:04 COMPARISON: None. INDICATIONS: Pain of breast Calculator Name NCI Breast Cancer Risk Assessment Tool 5 Year Breast Cancer Risk Not Reported. Lifetime Breast Cancer Risk Not Reported. Personal Breast Cancer No Personal Ovarian Cancer No Treatments None Family Cancers None LOCATION: [facility] BREAST COMPOSITION: Scattered areas fibroglandular density. FINDINGS: [...] M.D. on 04/29/2022 at 14:55 Normal [facility] US BREAST RIGHT LIMITEDon US BREAST RIGHT LIMITED Patient: KARUNA DUMONT Exam Date: 04/29/2022 : 1980 Gender:F Ordering : DR SANJEEV LOPEZ . Admission #: [id number] Family : Order #: [id number] CLICK HERE TO VIEW EXAM RADIOLOGY REPORT PROCEDURE: MAMMOGRAM DIAGNOSTIC 3D BILATERAL CAD, 04/29/2022, 10:05 ULTRASOUND BREAST RIGHT LIMITED, 04/29/2022, 11:04 COMPARISON: None. INDICATIONS: Pain of breast Calculator Name NCI Breast Cancer Risk Assessment Tool 5 Year Breast Cancer Risk Not Reported. Lifetime Breast Cancer Risk Not Reported. Personal Breast Cancer No Personal Ovarian Cancer No Treatments None Family Cancers None LOCATION: [facility] BREAST COMPOSITION: Scattered areas fibroglandular density. FINDINGS: [...] M.D. on 04/29/2022 at 14:55 Normal [facility] CT CERVICAL SPINE WO CONTRAS Ton 02-16-2022 [...] COMPARISON: None. HISTORY: ORDERING SYSTEM PROVIDED HISTORY: [facility] TECHNOLOGIST PROVIDED HISTORY: [facility] Decision Support Exception - unselect if not [...] Oziel Fox MD 02/16/22 Final result Normal [facility] XR CLAVICLE LEFTon XR CLAVICLE LEFT [...] Miller Romo MD 02/16/22 Final result Normal [facility] XR SHOULDER LEFT (MIN 2 VIEW [...] Emil Flores MD 02/16/22 Final result Normal [facility] CBC with Auto Differentialon 01-03-2022 Absolute Eos # 0.10 [facility] Absolute Lymph # 1.60 [facility] Absolute Mathews # 0.40 [facility] Basophils (Bld) [#/Vol] 0.00 10*3/uL [facility] Basophils/100 WBC (Bld) 1 % 0 - 2 % [facility] Eosinophils/100 WBC (Bld) 2 % 1 - 4 % [facility] Hematocrit (Bld) [Volume fraction] 46.0 % 36 - 46 % [facility] Hemoglobin (Bld) [Mass/Vol] 15.4 g/dL 12 - 16 g/dL [facility] Interpretation and review of laboratory results Abnormal [facility] Lymphocytes/100 WBC (Bld) 29 % 24 - 44 % [facility] MCH (RBC) [Entitic mass] 28.6 pg 26 - 34 pg [facility] MCHC (RBC) [Mass/Vol] 33.4 g/dL 31 - 3 7 g/dL [facility] MCV (RBC) [Entitic vol] 85.9 fL 80 - 100 fL [facility] Monocytes/100 WBC (Bld) 8 % 2 - 11 % [facility] Platelet distribution width (Bld) [Ratio] 14.1 % 12.5 - 15.4 % [facility] Platelet mean volume (Bld) [Entitic vol] 7.6 fL 6 - 12 fL [facility] Platelets (Bld) [#/Vol] 277 10*3/uL [facility] RBC (Bld) [#/Vol] 5.36 10*6/uL High 4 - 5.2 m/uL [facility] Segmented neutrophils/100 WBC (Bld) 60 % 36 - 66 % [facility] Segs Absolute 3.40 [facility] WBC (Bld) [#/Vol] 5.6 10*3/uL [facility] CBC with Diffon 01-03-2022 Abs. Basophil 0.00 k/uL Normal 0.0-0.[address] [facility] Comment on above: Performed By: #### H CG, LIP, MG, CDP, CMPX #### [address] [address] Test Cell Technician: Estevan Corcoran MD Abs.Neutrophil (Seg) 3.40 k/uL Normal 1.8-7.7 [facility] Comment on above: Performed By: #### H CG, LIP, MG, CDP, CMPX #### [address] [place] [address] Test Cell Technician: Estevan Corcoran MD Basophils/100 WBC (Bld) 1 % Normal 0-2 [facility] Comment on above: Performed By: #### H CG, LIP, MG, CDP, CMPX #### [address] [id number] Test Cell Technician: Estevan Corcoran MD Eosinophils (Bld) [#/Vol] 0.10 10*3/uL Normal 0.0-0.[address] [facility] Comment on above: Performed By: #### H CG, LIP, MG, CDP, CMPX #### [place] [address] Test Cell Technician: Estevan Corcoran MD Eosinophils/100 WBC (Bld) 2 % Normal 1-[address] [facility] Comment on above: Performed By: #### H CG, LIP, MG, CDP, CMPX #### [place] [address] Test Cell Technician: Estevan Corcoran MD Erythrocyte distribution width (RBC) [Ratio] 14.1 % Normal 12.5-15.[address] [facility] Comment on above: Performed By: #### H CG, LIP, MG, CDP, CMPX #### [place] [address] Test Cell Technician: Estevan Corcoran MD Hematocrit (Bld) [Volume fraction] 46.0 % Normal 36-[address] [facility] Comment on above: Performed By: #### H CG, LIP, MG, CDP, CMPX #### [address] [id number] Test Cell Technician: Estevan Corcoran MD Hemoglobin (Bld) [Mass/Vol] 15.4 g/dL Normal 12.0-16.[address] [facility] Comment on above: Performed By: #### H CG, LIP, MG, CDP, CMPX #### [place] [address] Test Cell Technician: Estevan Corcoran MD Lymphocytes (Bld) [#/Vol] 1.60 10*3/uL Normal 1.0-4.[address] [facility] Comment on above: Performed By: #### H CG, LIP, MG, CDP, CMPX #### [place] [address] Test Cell Technician: Estevan Corcoran MD Lymphocytes/100 WBC (Bld) 29 % Normal 24-[address] [facility] Comment on above: Performed By: #### H CG, LIP, MG, CDP, CMPX #### [place] [address] Test Cell Technician: Estevan Corcoran MD MCH (RBC) [Entitic mass] 28.6 pg Normal 26-[address] [facility] Comment on above: Performed By: #### H CG, LIP, MG, CDP, CMPX #### [place] [address] Test Cell Technician: Estevan Corcoran MD MCHC (RBC) [Mass/Vol] 33.4 g/dL Normal 31-37 [facility] Comment on above: Performed By: #### H CG, LIP, MG, CDP, CMPX #### [place] [address] Test Cell Technician: Estevan Corcoran MD MCV (RBC) [Entitic vol] 85.9 fL Normal 80-100 [facility] Comment on above: Performed By: #### H CG, LIP, MG, CDP, CMPX #### [address] [id number] Test Cell Technician: Estevan Corcoran MD Monocytes (Bld) [#/Vol] 0.40 10*3/uL Normal 0.1-1.[address] [facility] Comment on above: Performed By: #### H CG, LIP, MG, CDP, CMPX #### [place] [address] Test Cell Technician: Estevan Corcoran MD Monocytes/100 WBC (Bld) 8 % Normal 2-11 [facility] Comment on above: Performed By: #### H CG, LIP, MG, CDP, CMPX #### [place] [address] Test Cell Technician: Estevan Corcoran MD Neutrophil (Seg) 60 % Normal 36-66 [facility] Comment on above: Performed By: #### H CG, LIP, MG, CDP, CMPX #### [place] [address] Test Cell Technician: Estevan Corcoran MD Platelet mean volume (Bld) [Entitic vol] 7.6 fL Normal 6.0-12.[address] [facility] Comment on above: Performed By: #### H CG, LIP, MG, CDP, CMPX #### [place] [address] Test Cell Technician: Estevan Corcoran MD Platelets (Bld) [#/Vol] 277 10*3/uL Normal 140-[address] [facility] Comment on above: Performed By: #### H CG, LIP, MG, CDP, CMPX #### [place] [id number] Test Cell Technician: Estevan Corcoran MD RBC (Bld) [#/Vol] 5.36 10*6/uL High 4.0-5.[address] [facility] Comment on above: Performed By: #### H CG, LIP, MG, CDP, CMPX #### [facility] [address] [place] [address] Test Cell Technician: Estevan Corcoran MD WBC (Bld) [#/Vol] 5.6 10*3/uL Normal 3.5-11.[address] [facility] Comment on above: Performed By: #### H CG, LIP, MG, CDP, CMPX #### [facility] [address] [place] [address] Test Cell Technician: Estevan Corcoran MD CT ABDOMEN PELVIS W [...] Papito Mishra MD 01/03/22 Final result Normal [facility] CT ABDOMEN PELVIS W IV CONTR [...] L5-S1. Mild levoscoliosis of the lumbar spine. [facility] RIS CONSOLIDATED Papito Mishra MD [...] No clear evidence for small bowel obstruction. [employer] Phone: Radiology Study observation (narrative) [employer] Phone: CT ABDOMEN PELVIS W IV CONTR AST Additional Contrast? NoneOrdered By: Papito Mishra on 01-03-2022 [employer] Phone: Comp Metabolic Pr/rfx MGon 1 ALT [Catalytic activity/Vol] 28 U/L Normal 5-[address] [facility] Comment on above: Performed By: #### H CG, LIP, MG, CDP, CMPX #### [facility] [address] [place] [address] Test Cell Technician: Estevan Corcoran MD (cont.) [facility] Comment on above: Result Comment: Aver age GFR for 30-39 years old: 107 mL/min/1.73sq m Chronic Kidney Disease: <60 mL/min/1.73sq m Kidney failure: <15 mL/min/1.73sq m eGFR calculated using average adult body mass. Additional eGFR calculator available at: http://www.globalrph.Wearhaus/multiple_crcl_2011.htm Performed By: #### H CG, LIP, MG, CDP, CMPX #### [place] [address] Test Cell Technician: Estevan Corcoran MD Albumin [Mass/Vol] 4.3 g/dL Normal 3.5-5.[address] [facility] Comment on above: Performed By: #### H CG, LIP, MG, CDP, CMPX #### [place] [address] Test Cell Technician: Estevan Corcoran MD Albumin/Glob Ratio 1.4 Normal 1.0-2.[address] [facility] Comment on above: Performed By: #### H CG, LIP, MG, CDP, CMPX #### [place] [address] Test Cell Technician: Estevan Corcoran MD Alkaline Phos 105 U/L High 35-[address] [facility] Comment on above: Performed By: #### H CG, LIP, MG, CDP, CMPX #### [place] [address] Test Cell Technician: Estevan Corcoran MD Anion gap [Moles/Vol] 13 mmol/L Normal 9-17 [facility] Comment on above: Performed By: #### H CG, LIP, MG, CDP, CMPX #### [place] [address] Test Cell Technician: Estevan Corcoran MD AST [Catalytic activity/Vol] 26 U/L Normal <[address] [facility] Comment on above: Performed By: #### H CG, LIP, MG, CDP, CMPX #### [place] [address] Test Cell Technician: Estevan Corcoran MD Bilirubin [Mass/Vol] 0.3 mg/dL Normal 0.3-1.2 [facility] Comment on above: Performed By: #### H CG, LIP, MG, CDP, CMPX #### [place] [address] Test Cell Technician: Estevan Corcoran MD Calcium [Mass/Vol] 8.7 mg/dL Normal 8.6-10.[address] [facility] Comment on above: Performed By: #### H CG, LIP, MG, CDP, CMPX #### [place] [address] Test Cell Technician: Estevan Corcoran MD Chloride [Moles/Vol] 104 mmol/L Normal 98-107 [facility] Comment on above: Performed By: #### H CG, LIP, MG, CDP, CMPX #### [place] [address] Test Cell Technician: Estevan Corcoran MD CO2 [Moles/Vol] 21 mmol/L Normal 20-[address] [facility] Comment on above: Performed By: #### H CG, LIP, MG, CDP, CMPX #### [place] [address] Test Cell Technician: Estevan Corcoran MD Creatinine [Mass/Vol] 0.60 mg/dL Normal 0.50-0.90 [facility] Comment on above: Performed By: #### H CG, LIP, MG, CDP, CMPX #### [place] [address] Test Cell Technician: Estevan Corcoran MD GFR, Amer >60 Normal >60 [facility] Comment on above: Performed By: #### H CG, LIP, MG, CDP, CMPX #### [place] [address] Test Cell Technician: Estevan Corcoran MD GFR,non Amer >60 Normal >60 [facility] Comment on above: Performed By: #### H CG, LIP, MG, CDP, CMPX #### [place] [address] Test Cell Technician: Estevan Corcoran MD Glucose [Mass/Vol] 105 mg/dL High 70-[address] [facility] Comment on above: Performed By: #### H CG, LIP, MG, CDP, CMPX #### [place] [address] Test Cell Technician: Estevan Corcoran MD Potassium [Moles/Vol] 3.5 mmol/L Low 3.7-5.3 [facility] Comment on above: Performed By: #### H CG, LIP, MG, CDP, CMPX #### [place] [address] Test Cell Technician: Estevan Corcoran MD Protein [Mass/Vol] 7.4 g/dL Normal 6.4-8.[address] [facility] Comment on above: Performed By: #### H CG, LIP, MG, CDP, CMPX #### [place] [address] Test Cell Technician: Estevan Corcoran MD Sodium [Moles/Vol] 138 mmol/L Normal 135-[address] [facility] Comment on above: Performed By: #### H CG, LIP, MG, CDP, CMPX #### [place] [id number] Test Cell Technician: Estevan Corcoran MD Urea nitrogen [Mass/Vol] 12 mg/dL Normal 6-[address] [facility] Comment on above: Performed By: #### H CG, LIP, MG, CDP, CMPX #### [facility] [address] [place] [address] Test Cell Technician: Estevan Corcoran MD Comprehensive Metabolic Pane l w/ Reflex to MGon 01-03-2022 Albumin [Mass/Vol] 4.3 g/dL 3.5 - 5.2 g/dL [facility] Albumin/Globulin [Mass ratio] 1.4 {ratio} 1 - 2.5 [facility] ALP (Bld) [Catalytic activity/Vol] 105 U/L High 35 - 104 U/L [facility] ALT [Catalytic activity/Vol] 28 U/L 5 - 33 U/L [facility] Anion gap [Moles/Vol] 13 mmol/L 9 - 17 mmol/L [facility] AST [Catalytic activity/Vol] 26 U/L NINF - 32 U/L [facility] Bilirubin [Mass/Vol] 0.3 mg/dL 0.3 - 1 .2 mg/dL [facility] Calcium [Mass/Vol] 8.7 mg/dL 8.6 - 10. 4 mg/dL [facility] Chloride [Moles/Vol] 104 mmol/L 98 - 10 7 mmol/L [facility] CO2 [Moles/Vol] 21 mmol/L 20 - 31 mmol/L [facility] Creatinine [Mass/Vol] 0.6 mg/dL 0.5 - 0.9 mg/dL [facility] GFR >60 60 - PI NF mL/min [facility] GFR Non- >60 60 - PINF mL/min [facility] GFR/1.73 sq M.predicted MDRD (S/P/Bld) [Vol rate/Area] [facility] Comment on above: Average GFR for 30-3 9 years old: 107 mL/min/1.73sq m Chronic Kidney Disease: <60 mL/min/1.73sq m Kidney failure: <15 mL/min/1.73sq m eGFR calculated using average adult body mass. Additional eGFR calculator available at: http://www.Cirro/multiple_crcl_2012.htm Glucose [Mass/Vol] 105 mg/dL High 70 - 99 mg/dL [facility] Interpretation and review of laboratory results Abnormal [facility] Potassium [Moles/Vol] 3.5 mmol/L Low 3.7 - 5.3 mmol/L [facility] Protein [Mass/Vol] 7.4 g/dL 6.4 - 8.3 g/dL [facility] Sodium [Moles/Vol] 138 mmol/L 135 - 144 mmol/L [facility] Urea nitrogen (BldV) [Mass/Vol] 12 mg/dL 6 - 20 mg/dL [facility] HCG Qualitative, Serumon hCG Qual Negative NEGATIVE [facility] Comment on above: Specimens with hCG l evels near the threshold of the test (25 mIU/mL) may give a negative or indeterminate result. In such cases, another test should be performed with a new specimen in 48-72 hours. If early is suspected clinically in this setting, correlation with quantitative serum b-hCG level is suggested. [facility] the use of plasma for this test. This has not been cleared or approved by the U.S. Food and Drug Administration. The FDA has determined that such clearance is not necessary. [facility] HCG Screen, Bloodon 01-04-20 HCG Screen, Blood Negative Normal NEG [facility] Comment on above: Result Comment: Spec imens with hCG levels near the threshold of the test (25 mIU/mL) may give a negative or indeterminate result. In such cases, another test should be performed with a new specimen in 48-72 hours. If early is suspected clinically in this setting, correlation with quantitative serum b-hCG level is suggested. [employer] has confirmed the use of plasma for this test. This has not been cleared or approved by the U.S. Food and Drug Administration. The FDA has determined that such clearance is not necessary. Performed By: #### H CG, LIP, MG, CDP, CMPX #### [address] [id number] Test Cell Technician: Estevan Corcoran MD Lipaseon 01-03-2022 Lipase [Catalytic activity/Vol] 20 U/L Normal 13-[address] [facility] Comment on above: Performed By: #### H CG, LIP, MG, CDP, CMPX #### [address] [id number] Test Cell Technician: Estevan Corcoran MD Lipase [Catalytic activity/Vol] 20 U/L 13 - 60 U/L [facility] Magnesiumon 01-03-2022 Magnesium [Mass/Vol] 2.1 mg/dL Normal 1.6-2.6 [facility] Comment on above: Performed By: #### H CG, LIP, MG, CDP, CMPX #### [address] [address] Test Cell Technician: Estevan Corcroan MD Magnesium [Mass/Vol] 2.1 mg/dL 1.6 - 2 .6 mg/dL [facility] Microscopic Urinalysison Bacteria, UA MANY Abnormal None [facility] Epithelial Cells UA TOO NUMEROUS TO COUNT [facility] Interpretation and review of laboratory results Abnormal [facility] Other Observations UA Utilizing a urinal ysis as the only screening method to exclude a potential uropathogen can be unreliable in many patient populations. Rapid screening tests are less sensitive than culture and if UTI is a clinical possibility, culture should be considered despite a negative urinalysis. Abnormal NOT REQ. [facility] RBC, UA 2 TO 5 [facility] WBC, UA 2 TO 5 [facility] UA w/Reflex Cultureon 2021 Bilirubin, SemiQt,Ur Negative Normal NEG [facility] Comment on above: Performed By: #### U AX, UMICAO ####[address] [address] Lab Director: Estevan Corcoran MD Blood, Urine LARGE Abnormal NEG [facility] Comment on above: Performed By: #### U AX, UMICAO ####[address] [phone] Director: Estevan Corcoran MD Clarity (U) Cloudy Abnormal CLEAR [facility] Comment on above: Result Comment: FOUL ODOR Performed By: #### U AX, UMICAO ####[address] [phone] Director: Estevan Corcoran MD Color (U) Yellow Normal YEL [facility] Comment on above: Performed By: #### U AX, UMICAO ####[address] [address] Lab Director: Estevan Corcoran MD Glucose Ql (U) Negative Normal NEG [facility] Comment on above: Performed By: #### U AX, UMICAO ####[address] [phone] Director: Estevan Corcoarn MD Ketones Ql (U) Negative Normal NEG [facility] Comment on above: Performed By: #### U AX, UMICAO ####[address] [address] Lab Director: Estevan Corcoran MD Leukocyte esterase Test strip Ql (U) Negative Normal NEG [facility] Comment on above: Performed By: #### U AX, UMICAO ####[address] [address] Lab Director: Estevan Corcoran MD Nitrite,Ur Negative Normal NEG [facility] Comment on above: Performed By: #### U AXTERESAO ####[place] [address] lab Director: Estevan Corcoran MD PH,Ur 6.0 Normal 5.0-8.[address] [facility] Comment on above: Performed By: #### U AXTERESAO ####[place] [address] lab Director: Estevan Corcoran MD Protein Ql (U) Negative Normal NEG [facility] Comment on above: Performed By: #### U TERESA GILMANO ####[place] [address] Lab Director: Estevan Corcoran MD Spec. [place],Ur 1.108 High 1.005-1.[address] [facility] Comment on above: Result Comment: POST IV CONTRAST Performed By: #### U GEORGES GILMAN ####[place] [address] lab Director: Estevan Corcoran MD Urobilinogen,Ur Normal Normal NORM [facility] Comment on above: Performed By: #### U GEORGES GILMAN ####[place] [address] lab Director: Estevan Corcoran MD Urinalysis with Reflex to Cu ltureon 01-03-2022 Bilirubin Urine Negative NEGATIVE [facility] Color, UA Yellow Yellow [facility] Glucose, Ur Negative NEGATIVE [facility] Interpretation and review of laboratory results Abnormal [facility] Ketones Ql (U) Negative NEGATIVE [facility] Leukocyte esterase Test strip Ql (U) Negative NEGATIVE [facility] Nitrite, Urine Negative NEGATIVE [facility] pH, UA 6.0 5 - 8 [facility] Protein, UA Negative NEGATIVE [facility] Specific [place], UA 1.108 High 1.005 - 1.03 [facility] Comment on above: POST IV CONTRAST Turbidity UA Cloudy Abnormal Clear [facility] Comment on above: FOUL ODOR Urine Hgb LARGE Abnormal NEGATIVE [facility] Urobilinogen, Urine Normal Normal [facility] Urinalysis,Microon 2 Bacteria MANY Abnormal NONE [facility] Comment on above: Performed By: #### U AX UMICAO ####[place] [address] Lab Director: Estevan Corcoran MD Epithelial cells LM Ql (Urine sed) TOO NUMEROUS TO COUNT Normal 0-[address] [facility] [facility] [address] [facility] Comment on above: Performed By: #### U AX UMICAO ####[place] [address] Lab Director: Estevan Corcoran MD Other Observations Utilizing a urinalys is as the only screening method to exclude a potential [facility] Comment on above: Result Comment: urop athogen can be unreliable in many patient populations. Rapid screening tests are less sensitive than culture and if UTI is a clinical possibility, culture should be considered despite a negative urinalysis. Performed By: #### U AX UMICAO ####[place] [address] Lab Director: Estevan Corcoran MD Urine RBC's 2 TO 5 Normal 0-[address] [facility] Comment on above: Performed By: #### U AX UMICAO ####[address] [id number] Lab Director: Estevan Corcoran MD Urine WBC's 2 TO 5 Normal 0-[address] [facility] Comment on above: Performed By: #### U AX, [facility] ####[facility] [place] [address] [facility] Director: Estevan Corcoran MD CT LUMBAR SPINE [...] leg pain. Follow-up MRI may be helpful. [facility] EXAMINATION: CT OF THE [...] SOFT TISSUES/RETROPERITONEUM: No paraspinal mass is seen. [facility] Boyd Beatty MD - [...] leg pain. Follow-up MRI may be helpful. Xiaoi Robert Work Phone: Radiology Study observation (narrative) [employer] Work Phone: CT LUMBAR SPINE WO CONTRASTO rdered By: Boyd Beatty on 08-19-2021 Xiaoi Robert Work Phone: Vital Signs Date Time Vital Sign Value Performing Clinician Elena melton 06-12-2023 10:05-0400 Body height 165.1 cm Rohit Metzger MD Work Phone: [facility] 06-12-2023 10:05-0400 Body mass index (BMI) [Ratio] 38.94 kg/m2 Rohit Metzger MD Work Phone: [facility] 06-12-2023 10:05-0400 Body weight 106.14 kg Roh[facility] 05-16-2023 13:48-0500 Body height 165.1 cm Rohit Metzger MD Work Phone: [facility] 05-16-2023 13:48-0500 Body mass index (BMI) [Ratio] 38.94 kg/m2 Rohit Metzger MD Work Phone: [facility] 05-16-2023 13:48-0500 Body weight 106.14 kg Rohit Metzger MD Work Phone: [facility] 01-02-2023 10:00-0400 Body height 162.56 cm Johnathon Winter Other [employer] Other 01-02-2023 10:00-0400 Body mass index (BMI) [Ratio] 42.91 kg/m2 Johnathon Winter Other [employer] Other 01-02-2023 10:00-0400 Body weight 113.4 kg Johnathon Winter Other [employer] Other 01-02-2023 10:00-0400 Diastolic blood pressure 82 mm[Hg] Johnathon Winter Other [employer] Other 01-02-2023 10:00-0400 Systolic blood pressure 126 mm[Hg] Johnathon Winter Other [employer] Other 2022 11:00-0400 Body height 162.56 cm Johnathon Winter Other [employer] Other 2022 11:00-0400 Body mass index (BMI) [Ratio] 44.56 kg/m2 Johnathon Winter Other [employer] Other 2022 11:00-0400 Body weight 117.75 kg Johnathon Winter Other [employer] Other 2022 11:00-0400 Diastolic blood pressure 101 mm[Hg] Johnathon Winter Other [employer] Other 2022 11:00-0400 SaO2% (BldA) [Mass fraction] 100 % Johnathon Winter Other [employer] Other 2022 11:00-0400 Systolic blood pressure 138 mm[Hg] Johnathon Winter Other [employer] Other 10-11-2022 18:45-0400 Body height 165.1 cm Roxie Garcia MD Work Phone: [employer] 10-11-2022 18:45-0400 Body mass index (BMI) [Ratio] 43.93 kg/m2 Roxie Garcia MD Work Phone: [employer] 10-11-2022 18:45-0400 Body temperature 99 [degF] Roxie Garcia MD Work Phone: [employer] 10-11-2022 18:45-0400 Body weight 119.75 kg Roxie Garcia MD Work Phone: [employer] 10-11-2022 18:45-0400 Diastolic blood pressure 108 mm[Hg] Roxie Garcia MD [facility] Phone: [facility] [employer] 10-11-2022 18:45-0400 Heart rate 87 /min Roxie Garcia MD Work Phone: [facility] 10-11-2022 18:45-0400 Respiratory rate 16 /min Roxie Garcia MD Work Phone: [facility] [employer] 10-11-2022 18:45-0400 SaO2% (BldA) [Mass fraction] 98 % Roxie Garcia MD Work Phone: [facility] 10-11-2022 18:45-0400 Systolic blood pressure 160 mm[Hg] Roxie Garcia MD Work Phone: [facility] [employer] 01-03-2022 13:54-0400 Diastolic blood pressure 95 mm[Hg] Teo Froylanfman DO [facility] 01-03-2022 13:54-0400 Heart rate 61 /min Teo Helfman DO [facility] [employer] 01-03-2022 13:54-0400 SaO2% (BldA) [Mass fraction] 100 % Teo Helfman DO [facility] 01-03-2022 13:54-0400 Systolic blood pressure 142 mm[Hg] Teo Helfman DO [facility] 01-03-2022 11:46-0400 Body height 165.1 cm Teo Froylanfman DO [facility] 01-03-2022 11:46-0400 Body mass index (BMI) [Ratio] 44.1 kg/m2 Teo Helfman DO [facility] 01-03-2022 11:46-0400 Body temperature 97.7 [degF] Teo Helfman DO [employer] [facility] [employer] [facility] 01-03-2022 11:46-0400 Body weight 120.2 kg Teo [facility]elfman DO [facility] 01-03-2022 11:46-0400 Respiratory rate 16 /min Teo Helfman DO [facility] 08-19-2021 18:03-0400 Diastolic blood pressure 98 mm[Hg] Radha Sanders MD Work Phone: [facility] [employer] 08-19-2021 18:03-0400 Heart rate 92 /min Radha Sanders MD Work Phone: [facility] [employer] 08-19-2021 18:03-0400 Respiratory rate 16 /min Radha Sanders MD Work Phone: [facility] [employer] 08-19-2021 18:03-0400 SaO2% (BldA) [Mass fraction] 96 % Radha Sanders MD Work Phone: [facility] [employer] 08-19-2021 18:03-0400 Systolic blood pressure 145 mm[Hg] Radha Sanders MD Work Phone: [employer] 08-19-2021 16:28-0400 Body height 165.1 cm Radha Sanders MD Work Phone: [facility] [employer] 08-19-2021 16:28-0400 Body mass index (BMI) [Ratio] 45.76 kg/m2 Radha Sanders MD Work Phone: [facility] [employer] 08-19-2021 16:28-0400 Body temperature 98.6 [degF] Radha Sanders MD Work Phone: [facility] [employer] 08-19-2021 16:28-0400 Body weight 124.74 kg Radha Sanders MD Work Phone: [facility] [employer] Encounters Encounter Date Encounter Type Care Provider Facility Start: 08-23-2023 End: 08-23-2023 ambulatory KELI Resendez Facility:[facility] Start: 08-02-2023 End: 08-02-2023 ambulatory ROBERT URRUTIA Not Available Start: 07-31-2023 End: 08-01-2023 ambulatory Bhavin Montgomery MD Facility:[facility] Start: 07-19-2023 End: 07-19-2023 ambulatory SANJEEV LOPEZ Not Available Start: 07-17-2023 End: 07-18-2023 ambulatory [facility] Start: 06-26-2023 End: 06-27-2023 ambulatory Christiano Rivera MD Facility:[facility] Start: 06-15-2023 End: 06-15-2023 ambulatory SANJEEV LOPEZ Not Available Start: 06-12-2023 End: 06-12-2023 ambulatory [facility] Comment on above: Lumbar radiculopathy , chronic (Primary Dx); Herniated lumbar intervertebral disc Start: 06-12-2023 End: 06-12-2023 Office outpatient visit 10 minutes Rohit Smith MD [facility]: [facility] Comment on above: 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) Start: 06-06-2023 ambulatory RENY [facility] Start: 05-24-2023 Orders Only Reny barlow BSA OFFICER-MANAGER [employer]TERPRISE Work Phone: [facility] Comment on above: Herniated lumbar int ervertebral disc (Primary Dx); Lumbar radiculopathy, chronic Start: 05-23-2023 End: 05-23-2023 ambulatory Tee Peterson Facility:[facility] Start: 05-23-2023 End: 05-23-2023 ambulatory MD Tee Peterson Work Phone: [facility] Work Phone: Start: 05-23-2023 End: 05-23-2023 Departed Referred MD Tee Peterson Work Phone: [facility] Start: 05-19-2023 End: 05-20-2023 ambulatory RENY [facility] Start: 05-16-2023 End: 05-16-2023 ambulatory [facility] Start: 05-16-2023 End: 05-16-2023 Office outpatient new 30 minutes Rohit Smith MD Work Phone: [facility] Comment on above: 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); Finger injury, right, initial encounter Start: 05-15-2023 Orders Only Reny barlow BSA OFFICER-MANAGER [employer]TERPRISE Work Phone: [facility] Comment on above: Herniated lumbar int ervertebral disc (Primary Dx) Start: 05-10-2023 End: 05-10-2023 ambulatory Johnathon Winter Other [employer] Other Start: 05-10-2023 Encounter by kriss Winter [facility] Start: 05-10-2023 Non-patient / Non-visit MD Jones Work Phone: [facility] Work Phone: Start: 05-04-2023 End: 05-05-2023 ambulatory RENYCHELSEA NO [facility] Start: 05-04-2023 End: 05-04-2023 Office outpatient visit 10 minutes Oswaldo Dee DIGITAL PRINT OPERATOR Work Phone: [facility] Comment on above: 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); Pain in finger of right hand Start: 05-01-2023 End: 05-01-2023 ambulatory SANJEEV LOPEZ Not Available Start: 04-19-2023 End: 04-19-2023 ambulatory Scottie Lyn Other [employer] Other Start: 04-19-2023 Telephone encounter Scottie Lyn [facility] Start: 04-14-2023 End: 04-14-2023 Orders Only Serina Rodriguez [facility] Comment on above: Back pain, unspecifi ed back location, unspecified back pain laterality, unspecified chronicity (Primary Dx) Start: 04-12-2023 End: 04-12-2023 ambulatory Johnathon Winter Other [employer] Other Start: 04-12-2023 Telephone encounter Johnathon Winter [facility] Start: 04-11-2023 End: 04-11-2023 ambulatory Johnathon Winter Other [employer] Other Start: 04-11-2023 Telephone encounter Johnathon Winter [facility] Start: 04-10-2023 End: 04-10-2023 ambulatory Johnathon Winter Other [employer] Other Start: 04-10-2023 Encounter by kriss burgos Johnathon Winter [facility] Start: 03-16-2023 End: 03-16-2023 ambulatory OSWALDO DEE Not Available Start: 03-09-2023 End: 03-09-2023 ambulatory Johnathon Jay Maggy Facility:[facility] Start: 01-30-2023 End: 01-30-2023 ambulatory Johnathon Winter Other [employer] Other Start: 01-30-2023 Telephone encounter Johnathon Winter [facility] Start: 01-02-2023 End: 01-02-2023 ambulatory Johnathon Winter Other [employer] Other Start: 01-02-2023 Office outpatient vi sit 15 minutes Johnathon Winter [facility] Start: 12-09-2022 End: 12-09-2022 ambulatory Johnathon Winter Other [employer] Other Start: 12-09-2022 Telephone encounter Johnathon Winter [facility] Start: 12-08-2022 End: 12-08-2022 ambulatory Johnathon Winter Other [employer] Other Start: 12-08-2022 Telephone encounter Johnathon Winter [facility] Start: 2022 End: 2022 ambulatory Johnathon Winter Other [employer] Other Start: 2022 Office outpatient ne w 30 minutes Johnathon Winter [facility] Start: 10-11-2022 End: 10-11-2022 Emergency department patient visit JOHNATHON WINTRE [facility] Start: 10-11-2022 End: 10-11-2022 Emergency department patient visit Roxie Garcia MD Work Phone: [facility] Comment on above: Sprain of right ankl e, unspecified ligament, initial encounter (Primary Dx) Start: 07-11-2022 End: 07-11-[address] SANJEEV LOPEZ . Facility:[facility] Start: 04-29-2022 End: 04-30-[address] SANJEEV LOPEZ . Facility:[facility] Start: 02-16-2022 End: 02-16-2022 Emergency department patient visit JOHNATHON WINTER [facility] Start: 01-03-2022 End: 01-03-2022 Emergency department patient visit JOHNATHON WINTER [facility] Start: 01-03-2022 End: 01-03-2022 Emergency department patient visit Teo Thomas DO [facility] ED Comment on above: Gastroenteritis (Neetu emil Dx) Start: 08-19-2021 End: 08-19-2021 Emergency department patient visit Radha Sanders MD Work Phone: [facility] Comment on above: Herniated lumbar int ervertebral disc (Primary Dx) Procedures Date Procedure Procedure Detail Performing Clinician Start: 06-12-2023 Follow-up visit Follow-up ROHIT CAMEJO V Start: 10-11-2022 Radex ankle complete minimum 3 views Bailee Lew BSA OFFICER - MANAGER ENTERPRISE Work Phone: Start: 01-03-2022 Urinalysis microscop ic only Zachariah Foster BSA OFFICER - DIGITAL PRINT OPERATOR Work Phone: Start: 01-03-2022 Urnls dip stick/tabl et rgnt auto w/o microscopy Zachariah Foster BSA OFFICER - DIGITAL PRINT OPERATOR Work Phone: Start: 01-03-2022 Ct abdomen & pelvis w/contrast material Zachariah Foster BSA OFFICER - DIGITAL PRINT OPERATOR Work Phone: Start: 01-03-2022 Assay of lipase Zachariah Foster BSA OFFICER - DIGITAL PRINT OPERATOR Work Phone: Start: 12-01-2021 Adult depression screening assessment Smallsbenji Rodriguez Mina Start: 08-19-2021 Ct lumbar spine w/o contrast material Radha Sanders MD Work Phone: Plan of Treatment Date Care Activity Detail Author Start: 06-11-2024 Adult BMI Screening Adult BMI Screen ing [facility] Start: 06-11-2024 Tobacco Screening Tobacco Screening [facility] Start: 05-16-2024 Adult BMI Screening Adult BMI Screen ing [facility] Start: 05-16-2024 Tobacco Screening Tobacco Screening [facility] Start: 05-08-2024 Adult BMI Screening Adult BMI Screen ing [facility] Start: 05-08-2024 Tobacco Screening Tobacco Screening [facility] Start: 04-14-2024 Adult BMI Screening Adult BMI Screen ing [facility] Start: 04-14-2024 Tobacco Screening Tobacco Screening [facility] Start: 07-19-2023 End: 07-19-2023 Patient encounter procedure 07/19/2023 1:45 PM EDT Office Visit [facility] [address] [place] [address] Vishal Martin DO [address] [place] [address] [facility] Start: 07-17-2023 End: 07-17-2023 Patient encounter procedure 07/17/2023 10:00 AM EDT Office Visit [facility] [address] [place] [phone] Sanjeev Lopez DO [address] [place] [address] [facility] Start: 06-12-2023 End: 06-12-2023 Patient encounter procedure 06/12/2023 10:05 AM EDT Office Visit [facility] [address] [place] [phone] Rohit Smith MD [address] [place] [address] [facility] Start: 05-19-2023 End: 05-19-2023 Patient encounter procedure 05/19/2023 10:15 AM EST Appointment [facility] [address] [place] [phone] [facility] Start: 05-16-2023 End: 05-16-2023 Patient encounter procedure 05/16/2023 1:45 PM EST Office Visit [facility] [address] [facility] [address] [place] [phone] Rohit Smith MD [address] [place] [address] [facility] Start: 05-08-2023 End: 05-08-2023 Patient encounter procedure 05/08/2023 1:30 PM EST Office Visit [facility] [address] [facility] [phone] Reny No, BSA OFFICER-MANAGER ENTERPRISE [address] [facility] [address] [place] [address] [facility] Start: 04-14-2023 End: 04-14-2024 XR Lumbar spine Views W flexion and W extension X-ray spine lumbar ap, lateral, flexion and extension only Imaging Routine Back pain, unspecified back location, unspecified back pain laterality, unspecified chronicity Expected: 04/14/2023, Expires: 04/14/2024 [facility] Work Phone: Comment on above: Expected: 04/14/2023 , Expires: 04/14/2024 Start: 12-02-2022 Influenza vaccination Influenza Vacc ine [facility] Start: 12-01-2022 Depression Screening Depression Scre ening [facility] Start: 11-01-2022 Influenza vaccination Flu vaccine (# 1) [facility] Start: 09-03-2022 Adult BMI Follow Up Plan Adult BMI Follow Up Plan [facility] Start: 12-02-2021 Influenza vaccination Flu vacc ine (Season Ended) [facility] Start: 11-01-2021 Influenza vaccination Flu vaccine (# 1) [facility] Start: 2017 Diabetes screen Diabetes screen [facility] Start: 2012 Screening for malignant neoplasm of cervix [facility] Start: 12-01-2003 Screening for malignant neoplasm of cervix Pap smear [facility] Start: 2001 DTaP,Tdap and Td Vaccines (1 - Tdap) DTaP,Tdap and Td Vaccines (1 - Tdap) [facility] Start: 2001 DTaP/Tdap/Td vaccine (1 - Tdap) DTaP/Tdap/Td vaccine (1 - Tdap) [facility] Start: 2000 Hepatitis C screening Hepatitis C sc reen [facility] Start: 1994 Depression Screen Depression Screen [facility] Start: 12-01-1987 COVID-19 Vaccine (1) COVID-19 Vaccin e (1) [facility] Start: 12-01-1983 Varicella vaccine (1 of 2 - 2-dose childhood series) Varicella vaccine (1 of 2 - 2-dose childhood series) [facility] Start: 06-01-1983 COVID-19 Vaccine (#1) COVID-19 Vacci ne (#1) [facility] Payers Date Payer Category Payer Self-pay 2022 Unknown [id number] 2022 Unknown [id number] 2020 Unknown [id number] 1.2.8 [id number] 1982 Unknown [id number] 2.16.84 0.1.472534.3.579.2.593 1982 Unknown [id number] 2.16.84 0.1.998462.3.579.2.593 1982 Unknown [id number] 2.16. 840.1.429778.3.579.2.175 1982 Unknown [id number] 2.16. 840.1.029542.3.579.2.175 1982 Unknown [id number] 2.16. 840.1.221627.3.579.2.175 1982 Unknown [id number] 2.16.8 40.1.941164.3.579.2.1286 1982 Unknown [id number] 2.16.8 40.1.944925.3.579.2.128 1982 Unknown [id number] 2.16.8 40.1.445145.3.579.2.128 1982 Unknown [id number] 2.16.8 40.1.529053.3.579.2.1285 1982 Unknown [id number] 2.16.8 40.1.795431.3.579.2.1285 1982 Unknown [id number] 2.16.84 0.1.057266.3.579.2.128 1982 Unknown [id number] 2.16.84 0.1.779058.3.579.2.9 1982 Unknown [id number] 2.16.84 0.1.527801.3.579.2.9 1982 Unknown [id number] 2.16.84 0.1.983778.3.579.2.1258 1982 Unknown [id number] 2.16.84 0.1.079102.3.579.2.1259 1982 Unknown [id number] 2.16.84 0.1.068364.3.579.2.1259 1982 Unknown [id number] 2.16.840 .1.235286.3.579.2.9 1982 Unknown [id number] 2.16. 840.1.944133.3.579.2.196 1982 Unknown [id number] 2.16. 840.1.791568.3.579.2.196 1982 Unknown [id number] 2.16. 840.1.659213.3.579.2.196 1982 Unknown [id number] 2.16.8 40.1.021307.3.579.2.718 1982 Unknown [id number] 2.16.8 40.1.200310.3.579.2.718 1959 Unknown [id number] Social History Date Type Detail Facility Start: 06-15-2015 End: 03-31-2022 Tobacco smoking status MSIS Never smoked tobacco [facility] Start: 06-15-2015 End: 03-31-2022 Tobacco use and exposure Smokeless tobacco non-user [employer] Phone: Start: 08-19-2021 End: 06-12-2023 Alcohol intake Current non-drinker of alcohol (finding) [employer] Phone: Start: 05-14-2020 End: 08-19-2021 Alcohol intake [facility] Start: 06-15-2015 History SDOH Alcohol Comment rarely [employer] Phone: Start: 1980 Sex Assigned At Not on file [employer] Phone: Start: 08-09-2021 End: 01-03-2022 Exposure to SARS-CoV-2 (event) Not sure [employer] Phone: History of tobacco use Passive smoker [facility] [employer] Phone: Start: 05-14-2020 End: 04-14-2023 Sex Assigned At [facility] Adolescent depressio n screening assessment 0 [facility] Start: 05-04-2023 Alcohol intake Ex-drinker (finding) [facility] Start: 10-09-2022 Alcohol Comment Alcohol: 1 or 2 drinks on typical day/monthly or less. Caffeine: 1-2 cups/day tea [facility] Start: 1980 Sex Assigned At Female [facility] Start: 09-21-2022 Gender identity Identifies as female gender (finding) [facility] Start: 09-21-2022 Sexual orientation Heterosexual (finding) [facility] Clinical Notes 08-19-2021 to 08-23-2023 oRhit Metzger MD - 06/12/2023 10:05 AM Russell [...] wine (148 mL (more content not included)... [facility] 06-12-2023 History of Present illness Narrative 06/12/2023 [...] take another few months to subside. Recommended [id number] pain relievers as needed. She is content [...] any severe symptoms. [facility] History of Present illness Narrative [facility] Chief Complaint: [...] a snap. She initially followed up with [facility] Orthopedics and was diagnosed with right ring [...] External notes reviewed: I reviewed notes from [facility] orthopaedics. Review of test/study reports: I reviewed an x-ray obtained of the right ring finger. There were no acute osseous abnormality such as fracture dislocation. My personal interpretation of tests: I personally viewed and interpreted X-rays from [facility] as above. Xrays done in office today: None. Assessment: 1. Mallet deformity of right ring finger - [facility] - [place], [place] 2. Finger injury, right, initial encounter - [facility] - [place], [place] Plan: I discussed treatment options with [...] with her flexion. documented in this encounter [facility] 05-10-2023 Evaluation note Encounter Date Diagnosis Assessment Notes May, Adult ADHD (attention deficit hyperactivity disorder) (ICD-10 - F90.9) [employer] Other 02-01-2024 History of Present illness Narrative* [...] about 2 weeks. Went to [facility] due to having numbness in finger and unable to straighten it. Had XR at . On 03/13, pt went to [facility] and had another XR. Unable to get into hand specialist at [facility] until May 16. Continues to have soreness [...] crooked. PT is RT handed Prior [place]: [facility] 03/09/23, XR, Splint, [facility], XR 03/13/23, Ice, Heat, IBU, [facility] ALLERGIES: No Known Allergies HOME MEDICATIONS: Current Outpatient Medications Medication Instructions amphetamine-dextroamphetamine (Adderall) 20 MG tablet 1 TABLET ORALLY MID DAY 30 DAYS cyclobenzaprine (Flexeril) 10 MG tablet PLEASE SEE ATTACHED FOR DETAILED DIRECTIONS fluconazole (DIFLUCAN) 100 mg, Oral, Daily nystatin (Mycostatin) 343156 UNIT/GM powder APPLY TO AFFECTED AREA TOPICALLY [...] normal Pronation: normal Supination: normal Muscle Strength Dairy Clerk: 3/5 Other Erythema: absent Pulse: present Comments: [...] develop for requiring urgent evaluation. Oswaldo Dee APRN-MANAGER [employer]ISE documented in [id number] Evaluation note* Encounter Date Diagnosis Assessment Notes Treatment Notes Treatment Clinical Notes Apr, Adult ADHD (attentio n deficit hyperactivity disorder) (ICD-10 - F90.9) [employer] Other 01-10-2024 Evaluation note* Encounter Date Diagnosis Assessment Notes Treatment Notes Treatment Clinical Notes Apr, Adult ADHD (attentio n deficit hyperactivity disorder) (ICD-10 - F90.9) [facility] Other 01-09-2024 Evaluation note* Encounter Date Diagnosis Assessment Notes Treatment Notes Treatment Clinical Notes Apr, Adult ADHD (attentio n deficit hyperactivity disorder) (ICD-10 - F90.9) [employer] Other 01-08-2024 Evaluation note* Encounter Date Diagnosis Assessment Notes Treatment Notes Treatment Clinical Notes Apr, Adult ADHD (attentio n deficit hyperactivity disorder) (ICD-10 - F90.9) [employer] Other 12-07-2023 NotePatient Education Materials Follows: Mallet [...] or lying down. General instructions ? Take gogj-tua-icjhauk and prescription medicines only as told by [...] by your health care p (more contentnot included)...[id number] Evaluation note * Encounter Date Diagnosis Assessment Notes Treatment Notes Treatment Clinical Notes Jan, Adult ADHD (attentio n deficit hyperactivity disorder) (ICD-10 - F90.9) [employer] Other 10-02-2023 Evaluation note* Encounter Date Diagnosis [...] in 3 months or sooner if needed. [employer] Other 09-08-2023 Evaluation note* Encounter Date Diagnosis Assessment Notes Treatment Notes Treatment Clinical Notes Dec, Adult ADHD (attentio n deficit hyperactivity disorder) (ICD-10 - F90.9) [employer] Other 09-07-2023 Evaluation note* Encounter Date Diagnosis Assessment Notes Treatment Notes Treatment Clinical Notes Dec, Adult ADHD (attentio n deficit hyperactivity disorder) (ICD-10 - F90.9) [employer] Other 08-30-2023 Evaluation note* Encounter Date Diagnosis [...] Cutaneous candidiasis (ICD-10 - B37.2) Refilled diflucan. [facility] Other 07-11-2023 Hospital Discharge instructions* Discharge Instructions* RIZWAN Dietz CNP - 10/11/2022 8:08 PM EDT Please call and schedule a follow-up appointment with [facility]. Use an ice pack or [...] through Care Everywhere. * RICE: General Info ([place]) * Ankle Sprain ([place]) [facility]charge [facility]* Instructions* Radha Sanders MD - 08/19/2021 May use ice or heat, whichever feels better. May use [place] for pain. Prednisone as directed. Follow-up with [...] a follow up appointment THANK YOU!!! From [facility] On behalf of the Emergency Department staff at [facility], I would like to thank you for giving us the opportunity to address your health care needs and concerns. We hope that during your visit, our service was delivered in a professional and caring manner. Please keep [facility] in mind as we walk with you [...] how we did during your visit at [email or web address] ([email or web address]) [email or web address] and let us know about your experience * Attachments The following attachments cannot be sent through Care Everywhere. * Herniated Disc ([place]) [facility] Phone: evaluation note* Diagnosis Herniated lumbar intervertebral disc- Primary Displacement of lumbar intervertebral disc without myelopathy documented in this encounter [employer] Phone: evaluation note* Diagnosis Gastroenteritis- Primary Other and unspecified noninfectious gastroenteritis and colitis documented in this encounter [facility] [employer] Work Phone: evaluation note* Diagnosis Sprain of right ankle, unspecified ligament, initial encounter- Primary documented in this encounter [facility] [employer] CorpEvaluation note* Diagnosis Back pain, unspecified back location, unspecified back pain laterality, unspecified chronicity- Primary documented in this encounter [facility] [employer] COMPANYEvaluation noteNo InformationNort [employer] Other Evaluation note* Diagnosis 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 Pain in finger of right hand Pain in soft tissues of limb documented [facility]* Diagnosis Herniated lumbar intervertebral disc- Primary Displacement of lumbar intervertebral disc without myelopathy documented [facility] SystemEvaluation note* Diagnosis 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 Finger injury, right, initial encounter documented in this encounter [facility] SystemEvaluation note* Diagnosis Herniated lumbar intervertebral disc- Primary Displacement of lumbar intervertebral disc without myelopathy Lumbar radiculopathy, chronic documented in this encounter [facility] SystemEvaluation noteNo assessment information [facility] Work Phone: Evaluation note* Diagnosis Lumbar radiculopathy, chronic- Primary Herniated lumbar intervertebral disc Displacement of lumbar intervertebral disc without myelopathy documented in this encounter [facility] SystemEvaluation note* Diagnosis 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 [facility] general Narrative - Reported* Type Description Date Medical History PCOS/insulin resistant Medical History PCOS (polycystic ovarian syndrom e) Medical History Frequent headaches Medical History Gestational diabetes Medical History Prediabetes Surgical History cholecystectomy 2004 Surgical History appendectomy 2006 Surgical History Hospitalization History see surgical hx [employer] [employer] Other Hospital Discharge instructions* Attachments The following attachments cannot be sent through Care Everywhere. * Gastroenteritis ([place]) [facility] [employer] Work Phone: InstructionsNot on filedocumented in this encounter [facility] SystemInstructionsNot on filedocumented in this encounter [facility] ApniC[facility] SystemInstructionsNot on filedocumented in this encounter [facility] Ap[facility] SystemInstructionsNot on filedocumented in this encounter [facility] SystemReason for referral (narrative)* Consultation (Routine) - Pending Review Specialty Diagnoses / Procedures Referred By Contact Referred To Contact Physical Medicine and Rehabilitation Diagnoses Herniated lumbar intervertebral disc Lumbar radiculopathy, chronic Reny No APRN-RASHAUN [address] [place] [address] Vishal Martin DO [address] [place] [address] Referral ID Status Reason Start Date Expiration Date Visits Requested Visits Authorized [id number] Pending Review Specialty Services Required 05/24/2023 05/23/2024 1 1 [facility] Consultation (Routine) - Pending Review Specialty Diagnoses / Procedures Referred By Contac t Referred To Contact Pain Medicine Diagnoses Lumbar radiculopathy, chronic Herniated lumbar intervertebral disc Reny No APRN-RASHAUN [address] [place] [address] Davis Silva MD [address] [place] [address] Referral ID Status Reason Start Date Expiration Date V isits Requested Visits Authorized [id number] Pending Review 06/12/2023 06/11/2024 1 1 [facility] Advance Directives No Advanced Directives Records FoundDocuments on File Type Date Recorded Patient Supervisor L[place] Expl anation ACP-Advance Directive ACP-[facility] Supervisor Summary Purpose Family History No Family History [...] site of digit, initial encounter Nicole Lockwood, BSA OFFICER-MANAGER [employer] [address] [place] [address] Rohit Smith MD [address] [facility] [address] [place] [address] Referral ID Status Reason Start Date Expiration Date Visits Requested Visits Authorized [id number] Pending Review Specialty Services Required 3 03/12/2024 [...] would not scan at bedside. Verified with [facility] prior to administration.) Scheduled Medication Order [...] Care Teams (unrecognized sec tion and content) Individual Pension Consultant Relationship Specialty Start Date End Date Johnathon Winter MD PCP - General Family Medicine 03/08/16 Individual Pension Consultant Relationship Specialty Start Date End Date Johnathon Winter MD PCP - General Family Medicine 03/08/16 Individual Pension Consultant Relationship Specialty Start Date End Date Johnathon Winter MD PCP - General Family [facility] 03/08/16 Individual Pension Consultant Relationship Specialty Start Date End Date Johnathon Winter MD [address] [place], [place] [id number] PCP - General 03/13/23 Individual Pension Consultant Relationship Specialty Start Date End Date Johnathon Winter MD [address] [place] [address] [phone] PCP - General Family [facility] 12/12/22 Individual Pension Consultant Relationship Specialty Start Date End Date Johnathon Winter MD [address] [place] [id number] PCP - General 03/13/23 Individual Pension Consultant Relationship Specialty Start Date End Date Johnathon Winter MD [address] [place] [id number] PCP - General 03/13/23 Individual Pension Consultant Relationship Specialty Start Date End Date Johnathon Winter MD [address] [place] [id number] PCP - General 03/13/23 Team Status: Active Member Role Status Dates Johnathon Winter MD Primary Care Provide r, Attending Provider Active Start: May 10, 2023 Team Status: Inactive Member Role Status Dates Tee Peterson MD Attending Provider Active Start: May 23, 2023 End: May 23, 2023 Individual Pension Consultant Relationship Specialty Start Date End Date Johnathon Winter MD [address] [place] [address] PCP - General 03/13/23 INFORMATION SOURCE (unrecogn ized section and content) DATE CREATED AUTHOR 07/17/[address] [facility] DATE CREATED AUTHOR AUTHOR'S ORGANIZ ATION 10/12/2022 [facility] DATE CREATED AUTHOR AUTHOR'S ORGANIZ ATION 06/01/2023 [facility] DATE CREATED AUTHOR AUTHOR'S ORGANIZ ATION 06/07/2023 [facility] DATE CREATED AUTHOR AUTHOR'S ORGANIZ ATION 06/12/2023 [facility] DATE CREATED AUTHOR AUTHOR'S ORGANIZ ATION 08/03/2023 [facility] EPIC DATE CREATED AUTHOR AUTHOR'S ORGANIZ ATION 08/10/2023 [facility] DATE CREATED AUTHOR AUTHOR'S ORGANIZ ATION 09/02/2023 [facility] l Goals (unrecognized section and content) Goals [...] BE BASED ON THE PRIMARY CLINICAL RECORDS. [employer] [facility]. provides no warranty or guarantee of the accuracy or completeness of information in this document.
== END 2023-11-15 10:50 | disposition home or self-care (01) ==
LOC: MAMMO 10:49
PROVIDERS: PCP Family Medicine; Visit Provider Obstetrics & Gynecology
DX: R92.8 Other abnormal and inconclusive findings on diagnostic imaging of breast (principal); Z98.890 Other specified postprocedural states; Z80.0 Family history of malignant neoplasm of digestive organs
CPT/HCPCS: 77065; G0279

== ENCOUNTER 2023-11-20 07:37 | Day surgery (SDC) | payer BC, SELFPAY ==
--- OUTSIDE RECORDS SUMMARY | 2023-11-20 07:40 | XMS_ITS | CCD ---
Author Organization [facility] Care Team Providers Care Eight Arm Operator Name Role Phone Johnathon Winter MD Primary Care Provider [phone] GEORGINA ., DR ROMERO Admitting Unavailable GEORGINA ., DR ROMERO Attending Unavailable REQUEST, NONE LISTED Primary Care Unavaila ble GEORGINA ., DR ROMERO Consulting Unavailable Zieber, Tee Consulting Unavailable GEORGINA ., DR ROMERO Admitting Unavailable GEORGINA ., DR ROMERO Attending Unavailable REQUEST, DR NONE LISTED Primary Care Unavaila ble GEORGINA ., DR ROMERO Consulting Unavailable Johnathon Winter MD Primary Care Provider [phone] JOHNATHON WINTER Primary Care Unavailable ROXIE GARCIA Attending Unavailable JOHNATHON WINTER Primary Care Unavailable SANCHEZ AGUSTIN Attending Unavailable JOHNATHON WINTER Primary Care Unavailable TEO THOMAS Attending Unavailable Johnathon Winter Unavailable Johnathon Winter MD Primary Care Provider Scottie Lyn Unavailable Johnathon Winter MD Primary Care Provider [phone] MD Tee Peterson Attending Provider [phone] Tee Peterson Attending Unavailable Tee Peterson Admitting Unavailable RENY NO Attending Unavailable WINTER, JOHNATHON E Referring Unavailable WINTER, JOHNATHON E [...] Attending Unavailable ROHIT LARKIN Attending Unavailable ASMITA MONTGOEMRY Referring Unavailable WINTER JOHNATHON E Primary Care [...] 05/01/2023 05/15/2023 Active [facility]-four [facility] Fluconazole 100 [...] Start: 2022 take 1 capsule by mo [facility] every twenty-four hours Vyvanse 30 MG [...] once a week. 0 02/27/2023 Active nystatin 805677 unt/ml topical cream (9 sources) Polyene Antifungal Start: 05-01-2023 End: 04-30-2024 nystatin (Mycostatin) cream Indications: Follow-up encounter involving medication , Superficial skin infection Apply topically 2 (two) times a day 30 g 3 05/01/2023 04/30/2024 Active Start: 04-14-2023 nystatin (MYCO STATIN) powder Apply 1 Application topically in the morning and 1 Application before bedtime. 0 04/14/2023 Active Start: 04-14-2023 nystatin (Myco statin) 184062 UNIT/GM powder Indications: Skin irritation APPLY TO [...] days 20 tablet 0 08/19/2021 08/29/2021 Active Syl-Vlu-NX-Fish Oil ([facility] GUMMY) 0.4-113.5 MG CHEW (2 sources) Vhd-Yjl-DI-Fish Oil ([facility]S GUMMY) 0.4-113.5 MG CHEW Take [...] Coding Summaryon 09-01-2023 Coding Summary HTMLBase 64 GuxgjtraQVp1pYr+PGhlYWQ+ SF2IQUVnQ85rtCVecG7wX2DI TElOSywgQVBQTElOSyIgbmFt KJ7bmBCfSZOo IC8+MS2oOGQjMmhklBGfd9A5 vRO9J47rxo5pLMdamVX1RCXr YqMqckcpr2yjqHp6LNvaQkep OyBt RVPijF05RMB5kN10Ce30pCOs cUYqi7ymaWq6LbVxOPAhAJQ6 vYsuSWiqc2VnNGYxA00ybFOh c2U6 MTOhmKrxbEAuVoAlnQI6nB8h GSppkqtll6xxsaqcMjd5qm10 iHPlp8K8eXL2V4SldqO2XEKd bGQg QitdhZJLeE7vgljkw2hzwoza LsLbTCJbNQo4NLp9TUWdaSvr RuOvDY71AXK9EPNewaRmG2Ko LWFs vQjlWmK1a6T6Ts8AZ3VYSsof L1YWOQLQMJdqgPL+ZJ52ka12 N8XgFpzoErw6HYVyUTU7zUH4 aD0n VHOhVWqgs5L0yXL9F4MzvbOk xv0oo5nvAKXcNKnjA39boARf e4J4GOKhfZR2JDAhoIioBtRd aG93 Oyc+GZSwtMfpm9XnAeakc5dv o5lzhLl2SikePAPzeaGetVde FZO5u9IrVy1dWNWcrUV8gQY9 aD0i PxXjEpL6STmyO638KbKieMMc JnejM27tT1TdbAY+PHRyPjx0 VVSofQssNA5pJ5HqICXspial bGVm gRunZM6tFLQhkahuQXEcfS7g TDMgD2q1VrSeArB9UMtxO0Eh SWHzgiozTn32wO4jAxOqXkG0 MGlu N3IzyzR1SJViiPWwUFaqMCE0 L98hb0B0XIRuEJSfQZI4rBM1 cX9qnBopdcsycOZqfWvntdIt dGlj HSizNXyaI986CVVjkZgpWpBc ZGluZyBEYXRlOiAgMDUvMzEv MjAyNDwvdGQ+AFUmSHT7cNeo PSAn dPYwBBdzXn6ipJsmuSkfWX2p MHNoivfcOSVmdH8fWFQjzDMy qIszEZ1eRULnmbsey355UaOj MHB0 GGTycZJbV3CxeI1zXdBoNDXh SZGaM4DhzHHoNMvuL850RQjk AsI7EDRpzlOrL6YeIEVjlIlg OiB0 o1Z1Mg1Tl7BuadixA5JioUGt PyYdJosfYFi6K7PlCrqudSV+ KM40OXOgRD28ANo2QYX0kKvq PSdi AYYlB7OijA4iPfUvGXJaOYIj Oyc+PHRhYmxlIHdpZHRoPScx YHLdFdBkfGgfJN0aGk5aSTXl LWNv nEewmZOyYzMbu7xsZLSyZRlm SZ9okAxtJ2BtiMD9JGSpf7z2 Ze28I90eA1MeqBR+PGNvbCB3 aWR0 fN9kNdQoQgV9LMihU726PyEx uWEgKxthq1skw3uftAz7GsD1 RWNbnyUkjCybVGN9d2YyVl64 Y29s IHdpZHRoPSIxNSUiIHZhbGln lt8gkD0vNd5+NMAidFZ8lFN0 iE0pBvHfUlS9BMpmD441ZtPx cCIv Qgftf0maa5xyqMc9NdTqWJPk yvUhnJasDWW5v0AuMu08F1Qn iJpqt7OjSuq0py04sJOkv9P4 bGU9 T5KpRFEfzmmxpJSknPsfPZ4g ZBVyivcaOPOycD4wZKXsU3t6 TzTzLzB3MIybI3PhlhV3UVAa bGQg JCRmsCYGwA1ujpblb6jhstkz IpKzZKHhWTf7ZJp5FJGxsSqy HiXyTMZ4RtQ3WPA2mQKbgI3v bGln xxlntM3eXzr+SQL2sIQrcVQO GD3vToefpNG+TZHkTXQ2vTdy JSlcYPHzpM2xLRQoE6p9QjCn LjA1 QMyvK3SzizI6EHLhxBOpYHYq iTAUbR5saaehf7fbzaqcEhXb FSPfXZj4VVv7SWMsaNviSiWd ZWZ0 QxP2JYX8qPWliM0dqShzqsod tF5uNfa+LhrxwKmcTKF2DVq9 G4FpUif2RWYqsGhaZF8qkAZv ZGlu Lt1rgNjuoRjgRN0mHYYbgqwf e809MbUpn7taERJivOEqUSov LPJ5F83ur7D9TKWfVIGtCTM8 dGV4 dW7daHstwfpwxFIglItlcaXg eSweWWfwMIjyH709CHIgxHzd FcTpQTx1J7AqYxd3ADHnsDzf ZT0n mEVrTNzqKu6ebOwcvIwtUH5g HOEvvqtiv981KnLgn6azBLRe yIFcIGehAZO7B34ub6W6SWQt MDAw QCW9sKH2nG5pkPndnqrdlAXx uWfwlaRhgWdxZJnxNYcgY825 WYHoiKnfHyEmbDj1F4HyIiu7 ZCBz eTzuXX8ylPKnJNifSe3yoDvr hQilEQ9cJWBdkyibw892GnLy z7riKCBnnJWhFWzzKFE5U09d b3I6 GAAkQNAkRBD6cII1lF1paWio bjogbGVmdDsgdmVydGljYWwt BCniT638TANdkMnsXlNkaNbe bnQg QPlxZXp7S5QwNsfmyIV+PC90 AFCoTY71zCTyqFMkp5gmrYs7 ZdJqLIGfXDA1nLqcNAepu3Vs ZXIt A14tpVMzd2Q5WWUfpBiaeUFn RxZscHG1cJ7jVVyqwcklz2lj vhngHslec7ucvg47kF55E81v IHdp BONfJXGlQLAeNSGrmGilcl1i aC0vPn4+ESQvhWS9cGX6iD5e VRIhBlJ9NDxmD563QyEqtYGu Pjxj p3gil3iqoAc3OoS5QRIyebNw oRofXZJ9b1DlPg47F13eFGur ZPQoLUWmVTAfYBUejPetxa1r dG9w Ii8+QBMwaVM1dNP5pT6lXcDa UdN2DTqzK186XkPaoYMtYgqu J20lC0GmhFR+CEOaEkh9DZVr dHls MY9lpVTfEYwzHp5kLLD4AtKh QuDeQLcxK6SsZKTtxtqumusc cQC7TLReDCYsjV51Ls2dcHrd MTBw sWXRzH5wzfdsz0powrmqSuTz SNGoTAn8BUh4BPVvhZucJqDy ZFN0TzG2OXV7iKSwcN5qjVxe bjog mI5rC8QyQZTsgprkZt49jK2a LcJbJhK4GBxbYxs+E24VL0gE LCBBTUFOREEgREFXTjwvdGQ+ PHRk MBD5sOnrQTpxRHYqdW5jKYVb R0n7WgHuRdB6QPxeE5HvUHJj bbfvKp06tR2gOiJmUcF7EVao O2Zv auC9UDXggOLdRRdkWQL3G02m b7Q0GKKjFGUrHNS3iYG9jS5s bGlnbjogbGVmdDsgdmVydGlj YWwt HFrjR038BOJaqKjyNiC9PeLm QdZ7KYR8H9JiQup2MIQgtNzj AX0oaBStMBjfJe8faUaukCed MC4w IWJwfnjuLGDbnB0mWJQuiMPu gObqKY2mQGTuipfor888SdLc KEQ2RUZmyHMjK6OrdH4aIpCv MDAw BWJwQ4YizKDzFUudD715KGit QgF3RTFtcnKkN1DbKNIowRhx TbZ9r7S3Hi92NABVLAJfpgmy dGQ+ ZMDhNUK3dOhqHEpcEVTilG5y TVLdV2t6FqSkOyX6JCzgC4No MWJddqgnXr89pR3fIoPzXkU6 MGlu O5LbaoS3DVSgxPFvFAqaVFR2 V54eu1R5ZXYzCZYdZXG7aMZ6 rG3vhTzrtcivqMVyfFvjehTr dGlj DGvxIBvvM751SCJhbSgdMnZN TUFMRTwvdGQ+GFDwZQO9rUem CDipZTAhkX2rRQAvQ0m2GiWd LjA1 DZarY6CvYOIggmtwOh01sH0p JsThNbD3DGrgV6YdcsY2WDVh nHMtGTorPFE0F94bc4E2SELd MDAw EZN8oDR3aI1niJddolkhxWLm hCwtdcCrtTsnHRniADgjA398 TALtxNdxBa5MMB83QJ88T9Di Pjwv dGFibGU+PHRhYmxlIHdpZHRo XJupSFVtUeZnxPauKG6lRl8e VKTtFYLwbKeicMDrMbPlx3lb YXBz FWjeEI3oyJfjQ6RmgPC8DFNy r7q6Di98E53dW7BxnSA+PGNv bSS8tMR0bL7wKjDzNqY5GHum Z249 PmMzwZRvNnvtv2nye1vcqLt7 BfLnEDCmhzPaoQyaPYE2i1Hx Lm89Y64qCJhaSPWoSIMiFYRh IHZh fTtoiq4cdJ3zAv0+PGNvbCB3 nVY4cX3iGmIwJxM8VZwnA615 ByHrfMJzOnsjB68iX6IysQM+ PHRy Qid9QPFfpEgzDA7rjFPtSHtm Ve9gGYT3DvAbGrSnSJdoT1Pv ESJfkmvkjhvmkJS2FVZtHXPh aW47 Yt3yiZhhXu9aHZMwNPQ9GEYr fPTgV2XgiA9hVfHfZBWeJECd S0NqaYEzLVccV676VLoyCrS5 IHZl qdPoI5JkZGJpjCyoNlN8s0P9 Qh7HdUwpzMHcSV8vAxFqWCn4 U1LvEcy8GPSjiCdeJI1ivPYg ZGlu Em8oyApdpHanBD7xWBXfeumf j552AxFhj0mrUJKlcLOqZQal HPH6T25ze7F1ONTkYAWuTCJ9 dGV4 tY7skNtcbydbuOLhmEawjzOz kJpaUJnwCJyvF369PHWfiZsb OnBCHux3U1QbZhf0LUZzaNyf ZT0n oJOyUImvYv5lrVwhdVvdEI2k VZBsmmngd864KpIyc7fcVMWg cHTgHFovUDJ3B98eo0G4HVYs MDAw LDN6eDA0gM3unPhcdzcqlGSu xVozslLkgOwbBLpxRKgjA142 DJFvnNvtAq9LMpc2Y2FuSko2 ZCBz nUxdCH9hkQJcSGjvMj5saDfk sUhmLO9vNQSbvruix927OeWi g2ytQQUcsCGkXVmpTBO2D81y b3I6 SCZkIUXqRQD4nZL3fP5syEpa bjogbGVmdDsgdmVydGljYWwt BMonL579YFIdmCcpUpSebLCb Ojwv dGQ+UO02qk49Q8WeLibhWzm6 EKBpAPH9qLJ9iA5jMAAqGJkk k9I2mME5P9ZimnQarv5bw1ie YXBz ZTo (more content not included)... Normal [facility] ED Clinical Summaryon 2023 ED Clinical Summary [facility] ? 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 Urgent Care [address] [place] [address] PATIENT DISCHARGE INSTRUCTIONS Patient Information Name: KARUNA DUMONT Age: 42 Years Date of : 1980 Reason For Visit: Skin problem; RASH ON ARMS Arrival Time: 08/23/2023 14:45:23 Primary Care Physician: Johnathon Winter MD Attending Physician: Yissel Resendez PA-C Comment: Patient Education With: Address: When: [place] [address] [place] [address] Rash, Adult A rash is a [...] with your condition: Medicine Take or apply hbyp-wgg-bhxdlnw and prescription medicines only as told by [...] a bath with: ? Epsom salts. Follow administrative dietitian instructions on the packaging. You can get these at your local pharmacy or grocery store. ? Baking soda. Pour a small amount into the bath as told by your health care provider. ? Colloidal oatmeal. Follow administrative dietitian instructions on the packaging. You can get this at your local pharmacy or grocery store. ? Try applying baking soda paste to your skin. Stir water into baking soda until it reaches a paste-like consistency. ? Try applying calamine lotion. This is an kwom-pav-ujunvdj lotion that helps to relieve itchiness. ? [...] rash from spreading. ? Take or apply sxgr-zbz-mtrpiuj and prescription medicines only as told by your health care provider. ? Contact a health care provider if you have new or worsening symptoms. ? Keep all follow-up visits as told by yo (more content not included)... [facility] 05-23-2023 L Specimen: [id number] Received: 05/24/23 Status: NATHAN Guzmán Num: [id number] Spec Type: Surgical Subm Dr: Tee Peterson MD Tissues: A BREAST CORE NO CALCS (LT BREAST) Procedures: HE/4, Gross/Micro L4, AE1-AE3/2 Age/ Patient Sex Location Account Attending Physician Karuna Dumont 42/F LABELL [id number] eTe Peterson MD SPEC NUM: [id number] RECD: 05/24/23 [facility] NUM: [id number] GENEVA: 05/23/23- SUBM DR: Tee Peterson MD ENTERED: 05/24/[address] [facility] DR: Sandra Noel SPEC TYPE: Surgical DEPT: [...] Time: 0.10 Formalin Fixation Time: 28.50 Specimen: [id number] Received: 05/24/23 Status: NATHAN Burnsroberto Num: [id number] Spec Type: Surgical Subm Dr: Tee Peterson MD Tissues: A BREAST CORE NO CALCS (LT BREAST) Procedures: HE/4, Gross/Micro L4, AE1-AE3/2 Patient: Karuna Dumont [id number] (Continued) Specimen: [id number] Received: 05/24/23 (Continued) Signed (signature on file) Tootie Jordan MD 05/31/232105 Specimen: [id number] Received: 05/24/23 Status: NATHAN Guzmán Num: [id number] Spec Type: Surgical Subm Dr: Tee Peterson MD Tissues: A BREAST CORE NO CALCS (LT BREAST) Procedures: HE/4, Gross/Micro L4, AE1-AE3/2 Patient: Karuna Dumont [id number] (Continued) Specimen: [id number] Received: 05/24/23 (Continued) CPT Codes 96174 Specimen: [id number] Received: 05/24/23 Status: NATHAN Guzmán Num: [id number] Spec Type: Surgical Subm Dr: Tee Peterson MD Tissues: A BREAST CORE NO CALCS (LT BREAST) Procedures: HE/4, Gross/Micro L4, AE1-AE3/2 Patient: Karuna Dumont [id number] (Continued) Signed (signature on file) Tootie Jordan MD 05/31/239 [facility] MR LUMBAR SPINE WO CONTon MR LUMBAR [...] Yung Perry on 05/23/2023 12:47 PM Normal [facility] Free testosterone measuremen t by LC-MS/MSon 05-10-2023 Testosterone Free [Mass/Vol] 0.6 pg/mL 0.0-4.2 [facility] Comment on above: Performed at: [facility] [id number] Director: Theron Roblero PhD, Phone: [phone] at: [facility] [address] [id number] Director: Katelynn Macdonald MD, Phone: [phone] No Panel Informationon 05-10 C-Peptide 2.8 ng/mL 1.1-4.4 [facility] Comment on above: C-Peptide reference interval is for fasting patients.Performed at: [facility] [address] [id number] Director: Theron Roblero PhD, Phone: [phone] Dehydroepiandrosterone Sulfate 194.0 ug/dL 57.3-279.2 [facility] Free Cortisol, Dialysis, LCMS 0.787 ug/dL . [facility] Comment on above: These tests were dev eloped and their performancecharacteristics determined by [employer] They have not beencleared or approved by the Food and Drug Administration.Reference Range:8 AM 0.10 - 1.204 PM 0.042 - 0.872Performed at: [facility] [id number] [place], [place] [id number] Director: Kal Archibald MD, Phone: [phone] Reverse Triiodothyronine (T3) 23.0 ng/dL 9.2-24.1 [facility] Comment on above: This test was develo ped and its performance characteristicsdetermined by [employer] It has not been cleared orapproved by the Food and Drug Administration.Performed at: [address] [id number] Director: Katelynn Macdonald MD, Phone: [phone] Sex Hormone Binding Globulin 49.1 nmol/L 24.6-122.0 [facility] Comment on above: Performed at: [address] [id number] Director: Theron Roblero PhD, Phone: [phone] Testosterone Level 22 ng/dL 8-60 [facility] Plasma serotonin measurement (mass/volume)on 05-10-2023 Serotonin (P) [Mass/Vol] 105 ng/mL 31-207 [facility] Comment on above: This test was develo ped and its performance characteristicsdetermined by [facility]. It has not been cleared orapproved by the Food and Drug Administration.Performed at: [address] [id number] Director: Katelynn Macdonald MD, Phone: [phone] Serum estrone measurementon 05-10-2023 E1 [Mass/Vol] 65 pg/mL 27-231 [facility] Comment on above: Range Adult (Premeno pausal) 27 - 231 Menstrual Cycle (1-10 days) 19 - 149 Menstrual Cycle (11-20 days) 32 - 176 Menstrual Cycle (21-30 days) 37 - 200Performed at: [address] [id number] Director: Katelynn Macdonald MD, Phone: [phone] Serum or plasma estradiol (E 2) measurement (mass/volume)on 05-10-2023 E2 [Mass/Vol] 98.9 pg/mL . [facility] Comment on above: Adult Female Range F ollicular phase 12.5 - 166.0 Ovulation phase 85.8 - 498.0 Luteal phase 43.8 - 211.0 Postmenopausal <6.0 - 54.7 1st trimester 215.0 - >4300.0Roche ECLIA methodology Serum or plasma insulin mariam urement (units/volume)on 05-10-2023 Insulin Qn 7.0 u[iU]/mL 2.6-24.9 [facility] Comment on above: Performed at: - [facility] [id number] [place], [place] [id number] Director: Theron Roblero PhD, Phone: [phone] Serum or plasma progesterone measurement (mass/volume)on 05-10-2023 Progesterone [Mass/Vol] 0.1 ng/mL . [facility] Comment on above: Follicular phase 0.1 - 0.9 Luteal phase 1.8 - 23.9 Ovulation phase 0.1 - 12.0 First trimester 11.0 - 44.3 Second trimester 25.4 - 83.3 Third trimester 58.7 - 214.0 Postmenopausal 0.0 - 0.1Performed at: [facility] [id number] [place], [place] [id number] Director: Theron Roblero PhD, Phone: [phone] Serum or plasma thyroperoxid ase antibody assay (units/volume)on 05-10-2023 TPO Ab Qn 11 [IU]/mL 0-34 [facility] Thyroglobulin [Mass/volume] in Serum or Plasmaon 05-10-2023 Thyroglobulin [Mass/Vol] <1.0 [IU]/mL 0.0-0.9 [facility] Comment on above: Thyroglobulin Antibo dy measured by SergeMDMethodologyPerformed at: [facility] [id number] [place], [place] [id number] Director: Theron Roblero PhD, Phone: [phone] XR LUMBAR SPINE AP, LATERAL, FLEXION AND [...] Yung Perry on 05/05/2023 1:28 PM Normal [facility] Coding Summaryon 03-20-2023 Coding Summary HTMLBase 64 KrxdissnMGm3aTn+PGhlYWQ+ UY4EYFYeL18ypQXiiR8hE2VG TElOSywgQVBQTElOSyIgbmFt XC3goOHaLYLg IC8+DQ1xARTuHqlwcMCub2Q9 pZZ0S82zzb1bRTpzoKN2HQQc JoLskujza0vcoRu2VChoWwmb OyBt YQJgdY93OYQ6uR59Av66nBNj rGBrt7cxhKy3LeVeHXFnYQX0 gWjwKZjkf2ZhMIXxR82coQKc c2U6 IXXblDdfnYBmWnRmqOW2vH9i ZNdgomrqz0rticywEry7lx53 aIKep7T0mSP8C8UlwnB8YYOd bGQg TyvntCOHuS7kqkuax6tbjcbi FoOdDHCeZBn7VCq7EYAywSeq WdAsKR78ALW5GAFobxCvA1Re LWFs rHmcGzA7l9W5Ah6RP7JAHdix M2KHRLSVJYoshAQ+VZ81dy16 K3SeNwovLgx8UKPuTWO6lKA4 aD0n QYQyQYmqq6R8pRR2Y4XqosQz dq5rv8weXLSiMUdoS20ikEEv o2C9AZCurHW8OTEijYlaJfCn aG93 Oyc+YEQqyPgtx8MbWurqf9gp a9yvaCj7DisgMMZsjbMwpMdl UQP1v8SnKl7eWRHxvLR9bWN4 aD0i GyOuOcC4WUiyK409NqNckSVb NmalT23qI5ElgRY+PHRyPjx0 XQPjjXqdLK8vY9KiTINfgngc bGVm sKkaPD4tBDLfikefUBHdaW0l QIDjJ1v2BuWuHuN2JRuzX0Pg EKSyryalQf91yQ7aVeQfKxK2 MGlu C8UnvdV9UTRowZOwLFtuJIV7 R83ki8T2WYCeOCCcLFK9lER4 bD3ugOryxflrqLZkjCtjpgVc dGlj UVdpDWnaZ079SNJydWksHgPf ZGluZyBEYXRlOiAgMTIvMTgv MjAyMzwvdGQ+OFCuBNY6lDju PSAn pXIiLBxlNr4xkQxzgIciTU0g XRCwlxuwUGXawE7jWQHroEYr aTfoGX0qDBQxghrwk114AwFn MHB0 LODwjYTjY0LcpA3ySnOzWEZa BPTdP7HfbCDcFQskS643ADjq UcI8ALUsutRoM4WvOCVxhSca OiB0 e8C1Lh3Jm9QlhtqfH5UlzWYh NnKjHkdfAGw3G4BsMudzhSL+ PQ08FXEjCH10RTg7ZRE4xIsd PSdi XLGdL8SwbZ0vDkDkKVRiJWLw Oyc+PHRhYmxlIHdpZHRoPScx GCHnSfMkmTxgHL2jUr7mEEHu LWNv bYmboJVmLlFzu5veCZPqQYjq DI7cjYhyJ9ArtYZ8DYToj5m8 Am53F42qD5NvdZA+PGNvbCB3 aWR0 pN7dKsEzSlJ6GZxvU509GrAu hMHvMtyqf1wbc7ehjXp4MhE7 RXJhddOblEuvUSR5z7XeFv67 Y29s IHdpZHRoPSIxNSUiIHZhbGln za3ogK9uLd4+HQLvwHY0mHK9 iQ6hZsSdYtU1ZSzeA214YgNh cCIv Tqnvy6gfk9rckLl4AuVfERDn yhQcoDfwOBN5h5WhFw01P3Tw eKjis8KeQcj3jj75gMTvq4Z0 bGU9 C2PjWSIcbszevJOluThvXH1u LICyxdkyYXBazW5nBQWpR4l1 RaWjYvN3JXlbX7ZsvkH1CRBa bGQg DFThfPLQxT3lhnvce5gfvval NxHcKGBnGZs9DAd1EWYyrNah ZtDrZAM7OnS1ERF8yFYjeX6m bGln wwcbtC7gTda+PHJ8kKLwdNNL RQ3aZotvnXS+ESTsCSD3yZbj ZZdmQKVazC2xNNEqG8i8YkBh LjA1 OEwnW6OodgC1OEIvyQZvSDHy nZKLuC8flotte0hyxvyyCnHe UQWzOJz0BVv5RELriHivBxKd ZWZ0 PbQ9ESE9zWWxhB0teZgcqhpr sS4aZvp+ZbnklBhkYLS0VPh2 S0XsKyh0NXRswXyoSE0wyWAk ZGlu Px8oeJzyzZpiJM5pGCSiucys f329BvZjx8ftWZXclOMsFBqt OOH9Y78to1V9VUYkNZJrFGV8 dGV4 fD3bpHfazmixaJLqkZxijdMi kZbrWNonYAmgZ052YNOobVzs NyHjJMz9F2PpPyf6IHDaoUqd ZT0n sCThFGwcGl3ywKdndWfhJJ9j HJKpzwhsj314BdAka9elIKXs sDVsDIduCUG3U30pw7X5XOBv MDAw MSB2iKK3rC6mwXarrngovHCk sAxyouMgiUxwJKzcARphJ867 MXMwuJleCkPmbXr1V1TgTjn9 ZCBz jOvbGJ6kiQTeMGyeVf8mbPwg aVzbAZ1xJLMcndrrq453StMr x4znMYGrzQSjWAweTWY2H40p b3I6 JYPePWAuVJI7iHY8pX0djTfp bjogbGVmdDsgdmVydGljYWwt SNkyK428GEBbiDmlYjXfeOxi bnQg CZalXCv1U6SnSyjlvDU+PC90 UZWgMK02jPJzyBJcy4twoJk6 VuAfQYLvNCF4zFrnLRjgm1Kp ZXIt E71kdJCwi5B0RBOysWifsAOz NvKdlWG4iP2sFRoyalfpk1dy tuheWhyqm7nxna45eM92B11f IHdp NSKdUAUdOCLkXOXitVfzet3w nV5mPr0+PJQovBV3zGZ6dN9o QVJsAzS2DJzzU286RyHwiCTz Pjxj z8ghd1mmpMt8IvR1RRBoyhQi iQqtFVY3w5HnKp47L90yGIvi EEXzKQNeKEUlPTRgwCqqrm2u dG9w Ii8+PHLfhPC1tRN2cV0fElQp UiF1XVfmA942BoAljCJnIxmh H05fW5RqjBW+GELnPid3IDJa dHls XQ8bzZTvXMunCv6nWBI2ZgWb ZrHfXHjmG4YuTLMryhbvnpbv uPN0MZBnWHZnsW08Nb2xcNfq MTBw yGAHuS9srrquv5trmcozQjTy PCEeLGw6TRb4RRPibMcnJaYd TGF1DqU2JPJ5xRMvoW6gbPrq bjog iJ7tU3HoHOYuxamzUg23pB2t NzVaNbI1FKenIye+U78RY4fJ LCBBTUFOREEgREFXTjwvdGQ+ PHRk HPT8gKzwBXvvETNmxX1dXIIo G3x5OfKqJbG8UDafT7ImPRMn cwoqJz33iK6sPmPoWaB5FXhl O2Zv flH6FYLfiDDoTFmlKII0H92o k9G4XVPfTFEhNXV6iJC3nP9s bGlnbjogbGVmdDsgdmVydGlj YWwt VDjqU389MNEgoYywJrR4BwYe ErW4TEM8S2IkBqm9XZZdfPlq MN2tlCPcHQljWx7tkTsxnJod MC4w MYRjendcPHNpdT5kFOTgdDNt kQqaCH1aIWDwpeczg890RuDb UVK5IEYdvWWkS6PsqB2pAoVi MDAw MVBtS6EeaCDzWRcrE182MYmz MqE9IBLrbbTgQ4ZfPNUnqRzf ZfJ2q7D8Cc06HBNHOLAnzgrh dGQ+ GIBzOJD8iXwnYXgpGVSiqY4d EPHiW9o2FzHlVuP3JHxvG9Lu BGTrdrpkZx40zH4sXmKfVgE6 MGlu D6LxfoX8WJVxpSTwHSaqXJT6 D27bn9P1NZGdYKKiXVA5cYD0 iM2tqQebrhgogNLebRqqcqQr dGlj PKznMVhsI191BEVbgRwhSwOG TUFMRTwvdGQ+KQGjISX4kJzd GSkxPNOkaV6hEJBtB5s8ZlGh LjA1 DYjdF2YtJGPlqsylWn59bT7b JgGhJrM8IWhnG7LaljM7XOMt eUBmYXaoRIS5W66ed0D2UWRk MDAw BHB2tHY6bJ7vqGewzfnmpDLu eYerjcOteUloQHjrKYcvJ225 PJOwiTdzVk5WBN98HJ94E8Ww Pjwv dGFibGU+PHRhYmxlIHdpZHRo XAulVAYhAfQyzXmdJZ3cCp5w MFIdBSCvkKnagJFcXtZiz5wg YXBz UZsbZS6vyIzxU4UbzZP3RHJw t0l6Vb79M76rP5JuwED+PGNv qPX5gHX5uA0cMhWlOoX7ZTub Z249 CmVkiYZaBpumk5vox5kscDp1 HfVaBIChqrYjaNjuRQR4b3Pw Np57J06dCZkrBJPfTQNgVPSe IHZh oTlfmv3thU6yQg1+PGNvbCB3 cDO3uY6ySrRjAnF4NJlkD626 RqToxRTcBqybI84cP8OfoRJ+ PHRy Hon4LWEyzJgxCP2kcFOdOUzh Fb3xMDM5OjBbTuQrYPiuX6Ce YJTluysbhdpojPV4MWXuSNSm aW47 Bh0btKdiTx8xYUOdUYG8KHZc wFIxY1VzzN0sZtHtSOToHIDc T5UgoJTfPPimD030BPsiTiN1 IHZl agBiQ0GnACZdcTksSpG5o4L0 Tz9VqYgefAHmOO8bGbGyOXp1 X1NzVpj6UQNlmRshPW7euKHu ZGlu Oh3ohBewxFhrFT4dVLFfswzy p952RwHqv3tfOEAswQTtQMtj NOH8Z42od7A2VORqTQPiDSF3 dGV4 nO7kdCxlofcpqKDptKnebiGg yZxxFKkoFZnpW157MOSpvRxt FeKWXpq0K6GxAkw4VUPccMxw ZT0n jXWfBXxkBt1wvVjtyRquBI3u KUPlkycpx554EpHqt8uwIWLb aTIhIXzlGCN1P67os4Y1SDMu MDAw CPV2rOA1cA0czIclwezzpEKb wWftuoQwoQvuYFnnZGjfV062 VGSzoDbxWm4EKxn2T5OwDwd6 ZCBz kCoqNV6miCIcOHxoJf8tnJsp qMoaKV2qCCMdweepw699McMb x8tcORWjgXYoQJxfCXL6F84s b3I6 VGLgDCWdYBE8wZF4xO2luNfz bjogbGVmdDsgdmVydGljYWwt IAfiD327IBHgsGbyAmOrfBZb Ojwv dGQ+GA81tx50W9OgJxljNdx3 EDVxTSU0fEF6bC6eIVNcWOjk n8B5rKZ5H4IcpfCrmc9xo6eq YXBz ZTo (more content not included)... Normal [facility] ED Clinical Summaryon 2022 ED Clinical Summary [facility] ? Urgent Care [address] [place], [place] [id number] Clinical Summary PERSON INFORMATION Name: KARUNA DUMONT Age: 42 Years Sex: FEMALE : 1980 MRN: Acct#: Visit Reason: UC - Finger/Thumb Injury; RT RING FINGER INJURY Arrival: 03/09/2023 10:15:32 Discharge: 03/09/2023 12:03:00 LOS: 000 01:48 Check In: 03/09/2023 10:15:32 Checkout: 03/09/2023 12:03:00 Address: [facility] [address] PCP: Johnathon Winter MD PROVIDER INFORMATION Provider [...] With: Address: When: YUNG LAWS DO [address] [address] Within 3 to 5 days [...] verbalizes understanding of instructions given Comment: Normal [facility] ED Patient Summaryon 023 ED Patient Summary [facility] ? Urgent Care [address] [place] [id number] PATIENT DISCHARGE INSTRUCTIONS Patient Information Name: KARUNA DUMONT Age: 42 Years Date of : 1980 Reason For Visit: UC - Finger/Thumb Injury; RT RING FINGER INJURY Arrival Time: 03/09/2023 10:15:32 Primary Care Physician: Johnathon Winter MD Attending Physician: Sanchez John Comment: Patient Education With: Address: When: YUNG LAWS DO [address] [address] Within 3 to 5 days [...] or cold (more content not included)... Normal [facility] [place] 023 Urgent Care Record [facility] ? 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 It is important for you to follow up with a doctor, nurse practitioner, or physician?s family practice physician assistant for ongoing care. If your symptoms [...] so we can reach you if necessary. [facility] has provided you with a complete list of medications post discharge. Please inform your satellite tv installer/provider of your visit and for further instruction [...] of your st (more content not included)... [facility] XR Finger Righton 03-09-2023 XR Finger Right [...] MD 03/09/23 11:56 a Technologist: Vannesa DANGELO [facility] No Panel Informationon 10-11 No acute bony abnormalities are noted [facility] CONSOLIDATED EXAMINATION: THREE XRAY VIEWS [...] Soft tissue swelling. Calcaneal spurs [facility] CONSOLIDATED Miller Romo MD - [...] IMPRESSION: No acute bony abnormalities are noted [facility] Radiology Study observation (narrative) [facility] No Panel InformationOrdered By: Miller Romo on 10-11-2022 [facility] Mir Vracha Work Phone: XR ANKLE RIGHT (MIN 3 [...] Miller Romo MD 10/11/22 Final result Normal [facility] XR FOOT RIGHT (MIN 3 VIEWS)o n [...] Miller Romo MD 10/11/22 Final result Normal [facility] PAP ACOG PANEL 2: 30 to 65on 07-16-2022 . . Normal [facility] Comment on above: Result Comment: Perf ormed at: WB Performed By: #### [id number] #### [facility] [address] [address] [address] Dang Kirby Age Gdln ACOG Testing 30-65 Normal [facility] Comment on above: Performed By: #### [id number] #### [facility] [address] [place] [address] Dr. Dang Kirby DIAGNOSIS: Comment Normal [facility] Comment on above: Result Comment: NEGA TIVE FOR INTRAEPITHELIAL LESION OR MALIGNANCY. 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 Performed at: WB Performed By: #### [id number] #### [facility] [address] [place] [address] Dr. Dang Kirby HPV Aptima Negative Normal Negative [facility] Comment on above: Result Comment: This nucleic acid amplification test detects fourteen high-risk HPV types (16,18,31,33,35,39,45,51,52,56,58,59,66,68) without differentiation. Performed at: =G Performed By: #### 4 [id number] #### [facility] [address] [place] [address] Dr. Dang Kirby HPV Genotype Reflex Comment Normal [facility] Comment on above: Result Comment: Crit eria not met, HPV Genotype not performed. Performed at: WB Performed By: #### 4 [id number] #### [facility] [address] [place] [address] Dr. Dang Kirby Methodology: Comment Normal [facility] Comment on above: Result Comment: This liquid based ThinPrep(R) pap test was screened with the use of an image guided system. Performed at: WB Performed By: #### [id number] #### [facility] [address] [place] [address] Dr. Dang Kirby Note: Comment Normal [facility] Comment on above: Result Comment: The Pap smear is a screening test designed to aid in the detection of premalignant and malignant conditions of the uterine cervix. It is not a diagnostic procedure and should not be used as the sole means of detecting cervical cancer. Both false-positive and false-negative reports do occur. . Performed at: WB Performed By: #### 4 [id number] #### [facility] [address] [place] [address] Dr. Dang Kirby Performed by: Comment Normal [facility] Comment on above: Result Comment: Flavia Stanford, Business Services Coordinator (ASCP) Performed at: WB Performed By: #### 4 [id number] #### [facility] [address] [place], [place] [address] Dr. Dang Kirby QC reviewed by: Comment Normal [facility] Comment on above: Result Comment: Valentino Victor, Business Services Coordinator Performed at: WB Performed By: #### 4 [id number] #### [facility] [id number] Dang Kirby Specimen adequacy: Comment Normal [facility] Comment on above: Result Comment: Sati sfactory for evaluation. No endocervical component is identified. Performed at: WB Performed By: #### 4 [id number] #### [facility] [id number] Dang Kirby MG MAMM DIAGNOSTIC 3D RAMA CA Don 04-29-2022 MG MAMM DIAGNOSTIC 3D RAMA CAD Patient: KARUNA DUMONT Exam Date: 04/29/2022 : 1980 Gender:F Ordering : DR SANJEEV LOPEZ . Admission #: [id number] Family : Order #: [id number] CLICK HERE TO VIEW EXAM RADIOLOGY REPORT [...] LOCATION: [facility] BREAST COMPOSITION: Scattered areas fibroglandular density. FINDINGS: [...] Normal [facility] US BREAST RIGHT LIMITEDon US BREAST RIGHT LIMITED Patient: KARUNA DUMONT Exam Date: 04/29/2022 : 1980 Gender:F Ordering : DR SANJEEV LOPEZ . Admission #: [id number] Family : Order #: [id number] CLICK HERE TO VIEW EXAM RADIOLOGY REPORT [...] LOCATION: [facility] BREAST COMPOSITION: Scattered areas fibroglandular density. FINDINGS: [...] Normal [facility] CT CERVICAL SPINE WO CONTRAS Ton 02-16-2022 [...] COMPARISON: None. HISTORY: ORDERING SYSTEM PROVIDED HISTORY: [facility] TECHNOLOGIST PROVIDED HISTORY: [facility] Decision Support Exception - unselect if [...] Oziel Fox MD 02/16/22 Final result Normal [facility] XR CLAVICLE LEFTon XR CLAVICLE LEFT EXAMINATION: [...] Miller Romo MD 02/16/22 Final result Normal [facility] XR SHOULDER LEFT (MIN 2 VIEW S)on [...] Emil Flores MD 02/16/22 Final result Normal [facility] CBC with Auto Differentialon 01-03-2022 Absolute Eos # 0.10 [facility] Absolute Lymph # 1.60 [facility] Absolute [place] # 0.40 [facility] Basophils (Bld) [#/Vol] 0.00 10*3/uL [facility] Basophils/100 WBC (Bld) 1 % 0 - 2 % [facility] Eosinophils/100 WBC (Bld) 2 % 1 - 4 % [facility] Hematocrit (Bld) [Volume fraction] 46.0 % 36 - 46 % [facility] Hemoglobin (Bld) [Mass/Vol] 15.4 g/dL 12 - 16 g/dL [facility] Interpretation and review of laboratory results Abnormal [facility] Lymphocytes/100 WBC (Bld) 29 % 24 - 44 % [facility] MCH (RBC) [Entitic mass] 28.6 pg 26 - 34 pg [facility] MCHC (RBC) [Mass/Vol] 33.4 g/dL 31 - 3 7 g/dL [facility] MCV (RBC) [Entitic vol] 85.9 fL 80 - 100 fL [facility] Monocytes/100 WBC (Bld) 8 % 2 - 11 % [facility] Platelet distribution width (Bld) [Ratio] 14.1 % 12.5 - 15.4 % [facility] Platelet mean volume (Bld) [Entitic vol] 7.6 fL 6 - 12 fL [facility] Platelets (Bld) [#/Vol] 277 10*3/uL [facility] RBC (Bld) [#/Vol] 5.36 10*6/uL High 4 - 5.2 m/uL [facility] Segmented neutrophils/100 WBC (Bld) 60 % 36 - 66 % [facility] Segs Absolute 3.40 [facility] WBC (Bld) [#/Vol] 5.6 10*3/uL [facility] CBC with Diffon 01-03-2022 Abs. Basophil 0.00 k/uL Normal 0.0-0.2 [facility] Comment on above: Performed By: #### H CG, LIP, MG, CDP, CMPX #### [address] [address] Tariff Supervisor: Estevan Corcoran MD Abs.Neutrophil (Seg) 3.40 k/uL Normal 1.8-7.7 [facility] Comment on above: Performed By: #### H CG, LIP, MG, CDP, CMPX #### [address] [place] [address] Tariff Supervisor: Estevan Corcoran MD Basophils/100 WBC (Bld) 1 % Normal 0-2 M [facility] Comment on above: Performed By: #### H CG, LIP, MG, CDP, CMPX #### [address] [id number] Tariff Supervisor: Estevan Corcoran MD Eosinophils (Bld) [#/Vol] 0.10 10*3/uL Normal 0.0-0.4 [facility] Comment on above: Performed By: #### H CG, LIP, MG, CDP, CMPX #### [place] [address] Tariff Supervisor: Estevan Corcoran MD Eosinophils/100 WBC (Bld) 2 % Normal 1-4 [facility] Comment on above: Performed By: #### H CG, LIP, MG, CDP, CMPX #### [place] [address] Tariff Supervisor: Estevan Corcoran MD Erythrocyte distribution width (RBC) [Ratio] 14.1 % Normal 12.5-15.4 [facility] Comment on above: Performed By: #### H CG, LIP, MG, CDP, CMPX #### [place] [address] Tariff Supervisor: Estevan Corcoran MD Hematocrit (Bld) [Volume fraction] 46.0 % Normal 36-46 [facility] Comment on above: Performed By: #### H CG, LIP, MG, CDP, CMPX #### [address] [id number] Tariff Supervisor: Estevan Corcoran MD Hemoglobin (Bld) [Mass/Vol] 15.4 g/dL Normal 12.0-16.0 [facility] Comment on above: Performed By: #### H CG, LIP, MG, CDP, CMPX #### [place] [address] Tariff Supervisor: Estevan Corcoran MD Lymphocytes (Bld) [#/Vol] 1.60 10*3/uL Normal 1.0-4.8 [facility] Comment on above: Performed By: #### H CG, LIP, MG, CDP, CMPX #### [place] [address] Tariff Supervisor: Estevan Corcoran MD Lymphocytes/100 WBC (Bld) 29 % Normal 24-44 [facility] Comment on above: Performed By: #### H CG, LIP, MG, CDP, CMPX #### [place] [address] Tariff Supervisor: Estevan Corcoran MD MCH (RBC) [Entitic mass] 28.6 pg Normal 26-34 [facility] Comment on above: Performed By: #### H CG, LIP, MG, CDP, CMPX #### [place] [address] Tariff Supervisor: Estevan Corcoran MD MCHC (RBC) [Mass/Vol] 33.4 g/dL Normal 31-37 [facility] Comment on above: Performed By: #### H CG, LIP, MG, CDP, CMPX #### [place] [address] Tariff Supervisor: Estevan Corcoran MD MCV (RBC) [Entitic vol] 85.9 fL Normal 80-100 M [facility] Comment on above: Performed By: #### H CG, LIP, MG, CDP, CMPX #### [address] [id number] Tariff Supervisor: Estevan Corcoran MD Monocytes (Bld) [#/Vol] 0.40 10*3/uL Normal 0.1-1.2 [facility] Comment on above: Performed By: #### H CG, LIP, MG, CDP, CMPX #### [place] [address] Tariff Supervisor: Estevan Corcoran MD Monocytes/100 WBC (Bld) 8 % Normal 2-11 M [facility] Comment on above: Performed By: #### H CG, LIP, MG, CDP, CMPX #### [place] [address] Tariff Supervisor: Estevan Corcoran MD Neutrophil (Seg) 60 % Normal 36-66 [facility] Comment on above: Performed By: #### H CG, LIP, MG, CDP, CMPX #### [place] [address] Tariff Supervisor: Estevan Corcoran MD Platelet mean volume (Bld) [Entitic vol] 7.6 fL Normal 6.0-12.0 [facility] Comment on above: Performed By: #### H CG, LIP, MG, CDP, CMPX #### [place] [address] Tariff Supervisor: Estevan Corcoran MD Platelets (Bld) [#/Vol] 277 10*3/uL Normal 140-450 [facility] Comment on above: Performed By: #### H CG, LIP, MG, CDP, CMPX #### [address] [id number] Tariff Supervisor: Estevan Corcoran MD RBC (Bld) [#/Vol] 5.36 10*6/uL High 4.0-5.2 [facility] Comment on above: Performed By: #### H CG, LIP, MG, CDP, CMPX #### [facility] [address] [place] [address] Tariff Supervisor: Estevan Corcoran MD WBC (Bld) [#/Vol] 5.6 10*3/uL Normal 3.5-11.0 [facility] Comment on above: Performed By: #### H CG, LIP, MG, CDP, CMPX #### [facility] [address] [place] [address] Tariff Supervisor: Estevan Corcoran MD CT ABDOMEN PELVIS W [...] Papito Mishra MD 01/03/22 Final result Normal [facility] CT ABDOMEN PELVIS W IV CONTR AST [...] L5-S1. Mild levoscoliosis of the lumbar spine. [facility] RIS CONSOLIDATED Papito Mishra MD - [...] No clear evidence for small bowel obstruction. [employer] Phone: Radiology Study observation (narrative) [employer] Phone: CT ABDOMEN PELVIS W IV CONTR AST Additional Contrast? NoneOrdered By: Papito Mishra on 01-03-2022 [employer] Phone: Comp Metabolic Pr/rfx MGon 1 ALT [Catalytic activity/Vol] 28 U/L Normal 5-33 [facility] Comment on above: Performed By: #### H CG, LIP, MG, CDP, CMPX #### [facility] [address] [place] [address] Tariff Supervisor: Estevan Corcoran MD (cont.) [facility] Comment on above: Result Comment: Aver age GFR for 30-39 years old: 107 mL/min/1.73sq m Chronic Kidney Disease: <60 mL/min/1.73sq m Kidney failure: <15 mL/min/1.73sq m eGFR calculated using average adult body mass. Additional eGFR calculator available at: http://www.globalrph.Gradwell/multiple_crcl_2011.htm Performed By: #### H CG, LIP, MG, CDP, CMPX #### [place] [address] Tariff Supervisor: Estevan Corcoran MD Albumin [Mass/Vol] 4.3 g/dL Normal 3.5-5.2 [facility] Comment on above: Performed By: #### H CG, LIP, MG, CDP, CMPX #### [place] [address] Tariff Supervisor: Estevan Corcoran MD Albumin/Glob Ratio 1.4 Normal 1.0-2.5 [facility] Comment on above: Performed By: #### H CG, LIP, MG, CDP, CMPX #### [place] [address] Tariff Supervisor: Estevan Corcoran MD Alkaline Phos 105 U/L High 35-104 [facility] Comment on above: Performed By: #### H CG, LIP, MG, CDP, CMPX #### [place] [address] Tariff Supervisor: Estevan Corcoran MD Anion gap [Moles/Vol] 13 mmol/L Normal 9-17 [facility] Comment on above: Performed By: #### H CG, LIP, MG, CDP, CMPX #### [place] [address] Tariff Supervisor: Estevan Corcoran MD AST [Catalytic activity/Vol] 26 U/L Normal <32 [facility] Comment on above: Performed By: #### H CG, LIP, MG, CDP, CMPX #### [place] [address] Tariff Supervisor: Estevan Corcoran MD Bilirubin [Mass/Vol] 0.3 mg/dL Normal 0.3-1.2 [facility] Comment on above: Performed By: #### H CG, LIP, MG, CDP, CMPX #### [place] [address] Tariff Supervisor: Estevan Corcoran MD Calcium [Mass/Vol] 8.7 mg/dL Normal 8.6-10.4 [facility] Comment on above: Performed By: #### H CG, LIP, MG, CDP, CMPX #### [place] [address] Tariff Supervisor: Estevan Corcoran MD Chloride [Moles/Vol] 104 mmol/L Normal 98-107 [facility] Comment on above: Performed By: #### H CG, LIP, MG, CDP, CMPX #### [place] [address] Tariff Supervisor: Estevan Corcoran MD CO2 [Moles/Vol] 21 mmol/L Normal 20-31 [facility] Comment on above: Performed By: #### H CG, LIP, MG, CDP, CMPX #### [place] [address] Tariff Supervisor: Estevan Corcoran MD Creatinine [Mass/Vol] 0.60 mg/dL Normal 0.50-0.90 [facility] Comment on above: Performed By: #### H CG, LIP, MG, CDP, CMPX #### [place] [address] Tariff Supervisor: Estevan Corcoran MD GFR, Amer >60 Normal >60 [facility] Comment on above: Performed By: #### H CG, LIP, MG, CDP, CMPX #### [place] [address] Tariff Supervisor: Estevan Corcoran MD GFR,non Amer >60 Normal >60 [facility] Comment on above: Performed By: #### H CG, LIP, MG, CDP, CMPX #### [place] [address] Tariff Supervisor: Estevan Corcoran MD Glucose [Mass/Vol] 105 mg/dL High 70-99 [facility] Comment on above: Performed By: #### H CG, LIP, MG, CDP, CMPX #### [place] [address] Tariff Supervisor: Estevan Corcoran MD Potassium [Moles/Vol] 3.5 mmol/L Low 3.7-5.3 [facility] Comment on above: Performed By: #### H CG, LIP, MG, CDP, CMPX #### [place] [address] Tariff Supervisor: Estevan Corcoran MD Protein [Mass/Vol] 7.4 g/dL Normal 6.4-8.3 [facility] Comment on above: Performed By: #### H CG, LIP, MG, CDP, CMPX #### [place] [address] Tariff Supervisor: Estevan Corcoran MD Sodium [Moles/Vol] 138 mmol/L Normal 135-144 [facility] Comment on above: Performed By: #### H CG, LIP, MG, CDP, CMPX #### [place] [id number] Tariff Supervisor: Estevan Corcoran MD Urea nitrogen [Mass/Vol] 12 mg/dL Normal 6-20 [facility] Comment on above: Performed By: #### H CG, LIP, MG, CDP, CMPX #### [facility] [address] [place] [address] Tariff Supervisor: Estevan Corcoran MD Comprehensive Metabolic Pane l w/ Reflex to MGon 01-03-2022 Albumin [Mass/Vol] 4.3 g/dL 3.5 - 5.2 g/dL [facility] Albumin/Globulin [Mass ratio] 1.4 {ratio} 1 - 2.5 [facility] ALP (Bld) [Catalytic activity/Vol] 105 U/L High 35 - 104 U/L [facility] ALT [Catalytic activity/Vol] 28 U/L 5 - 33 U/L [facility] Anion gap [Moles/Vol] 13 mmol/L 9 - 17 mmol/L [facility] AST [Catalytic activity/Vol] 26 U/L NINF - 32 U/L [facility] Bilirubin [Mass/Vol] 0.3 mg/dL 0.3 - 1 .2 mg/dL [facility] Calcium [Mass/Vol] 8.7 mg/dL 8.6 - 10. 4 mg/dL [facility] Chloride [Moles/Vol] 104 mmol/L 98 - 10 7 mmol/L [facility] CO2 [Moles/Vol] 21 mmol/L 20 - 31 mmol/L [facility] Creatinine [Mass/Vol] 0.6 mg/dL 0.5 - 0.9 mg/dL [facility] GFR >60 60 - PI NF mL/min [facility] GFR Non- >60 60 - PINF mL/min [facility] GFR/1.73 sq M.predicted MDRD (S/P/Bld) [Vol rate/Area] [facility] Comment on above: Average GFR for 30-3 9 years old: 107 mL/min/1.73sq m Chronic Kidney Disease: <60 mL/min/1.73sq m Kidney failure: <15 mL/min/1.73sq m eGFR calculated using average adult body mass. Additional eGFR calculator available at: http://www.Cody/multiple_crcl_2012.htm Glucose [Mass/Vol] 105 mg/dL High 70 - 99 mg/dL [facility] Interpretation and review of laboratory results Abnormal [facility] Potassium [Moles/Vol] 3.5 mmol/L Low 3.7 - 5.3 mmol/L [facility] Protein [Mass/Vol] 7.4 g/dL 6.4 - 8.3 g/dL [facility] Sodium [Moles/Vol] 138 mmol/L 135 - 144 mmol/L [facility] Urea nitrogen (BldV) [Mass/Vol] 12 mg/dL 6 - 20 mg/dL [facility] HCG Qualitative, Serumon hCG Qual Negative NEGATIVE [facility] Comment on above: Specimens with hCG l evels near the threshold of the test (25 mIU/mL) may give a negative or indeterminate result. In such cases, another test should be performed with a new specimen in 48-72 hours. If early is suspected clinically in this setting, correlation with quantitative serum b-hCG level is suggested. [facility] has confirmed the use of plasma for this test. This has not been cleared or approved by the U.S. Food and Drug Administration. The FDA has determined that such clearance is not necessary. [facility] HCG Screen, Bloodon 01-04-20 HCG Screen, Blood Negative Normal NEG [facility] Comment on above: Result Comment: Spec imens with hCG levels near the threshold of the test (25 mIU/mL) may give a negative or indeterminate result. In such cases, another test should be performed with a new specimen in 48-72 hours. If early is suspected clinically in this setting, correlation with quantitative serum b-hCG level is suggested. [employer] has confirmed the use of plasma for this test. This has not been cleared or approved by the U.S. Food and Drug Administration. The FDA has determined that such clearance is not necessary. Performed By: #### H CG, LIP, MG, CDP, CMPX #### [address] [id number] Tariff Supervisor: Estevan Corcoran MD Lipaseon 01-03-2022 Lipase [Catalytic activity/Vol] 20 U/L Normal 13-60 [facility] Comment on above: Performed By: #### H CG, LIP, MG, CDP, CMPX #### [address] [id number] Tariff Supervisor: Estevan Corcoran MD Lipase [Catalytic activity/Vol] 20 U/L 13 - 60 U/L [facility] Magnesiumon 01-03-2022 Magnesium [Mass/Vol] 2.1 mg/dL Normal 1.6-2.6 [facility] Comment on above: Performed By: #### H CG, LIP, MG, CDP, CMPX #### [address] [address] Tariff Supervisor: Estevan Corcoran MD Magnesium [Mass/Vol] 2.1 mg/dL 1.6 - 2 .6 mg/dL [facility] Microscopic Urinalysison Bacteria, UA MANY Abnormal None [facility] Epithelial Cells UA TOO NUMEROUS TO COUNT [facility] Interpretation and review of laboratory results Abnormal [facility] Other Observations UA Utilizing a urinal ysis as the only screening method to exclude a potential uropathogen can be unreliable in many patient populations. Rapid screening tests are less sensitive than culture and if UTI is a clinical possibility, culture should be considered despite a negative urinalysis. Abnormal NOT REQ. [facility] RBC, UA 2 TO 5 [facility] WBC, UA 2 TO 5 [facility] UA w/Reflex Cultureon 2021 Bilirubin, SemiQt,Ur Negative Normal NEG [facility] Comment on above: Performed By: #### U AX, UMICAO ####[address] [address] Lab Director: Estevan Corcoran MD Blood, Urine LARGE Abnormal NEG [facility] Comment on above: Performed By: #### U AX, UMICAO ####[address] [phone] Director: Estevan Corcoran MD Clarity (U) Cloudy Abnormal CLEAR [facility] Comment on above: Result Comment: FOUL ODOR Performed By: #### U AX, UMICAO ####[address] [phone] Director: Estevan Corcoran MD Color (U) Yellow Normal YEL [facility] Comment on above: Performed By: #### U AX, UMICAO ####[address] [address] Lab Director: Estevan Corcoran MD Glucose Ql (U) Negative Normal NEG [facility] Comment on above: Performed By: #### U AX, UMICAO ####[address] [phone] Director: Estevan Corcoran MD Ketones Ql (U) Negative Normal NEG [facility] Comment on above: Performed By: #### U AX, UMICAO ####[address] [address] Lab Director: Estevan Corcoran MD Leukocyte esterase Test strip Ql (U) Negative Normal NEG [facility] Comment on above: Performed By: #### U AX, UMICAO ####[address] [address] Lab Director: Estevan Corcoran MD Nitrite,Ur Negative Normal NEG [facility] Comment on above: Performed By: #### U AXTERESAO ####[place] [address] lab Director: Estevan Corcoran MD PH,Ur 6.0 Normal 5.0-8.0 [facility] Comment on above: Performed By: #### U AXTERESAO ####[place] [address] lab Director: Estevan Corcoran MD Protein Ql (U) Negative Normal NEG [facility] Comment on above: Performed By: #### U TERESA GILMANO ####[place] [address] Lab Director: Estevan Corcoran MD Spec. [place],Ur 1.108 High 1.005-1.03 0 [facility] Comment on above: Result Comment: POST IV CONTRAST Performed By: #### U GEORGES GILMAN ####[place] [address] lab Director: Estevan Corcoran MD Urobilinogen,Ur Normal Normal NORM [facility] Comment on above: Performed By: #### U GEORGES GILMAN ####[place] [address] lab Director: Estevan Corcoran MD Urinalysis with Reflex to Cu ltureon 01-03-2022 Bilirubin Urine Negative NEGATIVE [facility] Color, UA Yellow Yellow [facility] Glucose, Ur Negative NEGATIVE [facility] Interpretation and review of laboratory results Abnormal [facility] Ketones Ql (U) Negative NEGATIVE [facility] Leukocyte esterase Test strip Ql (U) Negative NEGATIVE [facility] Nitrite, Urine Negative NEGATIVE [facility] pH, UA 6.0 5 - 8 [facility] Protein, UA Negative NEGATIVE [facility] Specific [place], UA 1.108 High 1.005 - 1.03 [facility] Comment on above: POST IV CONTRAST Turbidity UA Cloudy Abnormal Clear [facility] Comment on above: FOUL ODOR Urine Hgb LARGE Abnormal NEGATIVE [facility] Urobilinogen, Urine Normal Normal [facility] Urinalysis,Microon 2 Bacteria MANY Abnormal NONE [facility] Comment on above: Performed By: #### U AX UMICAO ####[place] [address] Lab Director: Estevan Corcoran MD Epithelial cells LM Ql (Urine sed) TOO NUMEROUS TO COUNT Normal 0-5 [facility] Comment on above: Performed By: #### U AX UMICAO ####[place] [address] Lab Director: Estevan Corcoran MD Other Observations Utilizing a urinalys is as the only screening method to exclude a potential [facility] Comment on above: Result Comment: urop athogen can be unreliable in many patient populations. Rapid screening tests are less sensitive than culture and if UTI is a clinical possibility, culture should be considered despite a negative urinalysis. Performed By: #### U AX UMICAO ####[place] [address] Lab Director: Estevan Corcoran MD Urine RBC's 2 TO 5 Normal 0-2 [facility] Comment on above: Performed By: #### U AX UMICAO ####[address] [id number] Lab Director: Estevan Corcoran MD Urine WBC's 2 TO 5 Normal 0-5 [facility] Comment on above: Performed By: #### U AX, [facility] ####[facility] [place] [address] [facility] Director: Estevan Corcoran MD CT [...] Follow-up MRI may be helpful. [facility] EXAMINATION: CT OF THE [...] No paraspinal mass is seen. [facility] Boyd Beatty MD - [...] leg pain. Follow-up MRI may be helpful. [employer] Work Phone: Radiology Study observation (narrative) [email or web address] Work Phone: CT LUMBAR SPINE WO CONTRASTO rdered By: Boyd Beatty on 08-19-2021 [employer] Work Phone: Vital Signs Date Time Vital Sign Value Performing Clinician Elena melton 06-12-2023 10:05-0400 Body height 165.1 cm Rohit Metzger MD Work Phone: [employer] 06-12-2023 10:05-0400 Body mass index (BMI) [Ratio] 38.94 kg/m2 Rohit Metzger MD Work Phone: [employer] 06-12-2023 10:05-0400 Body weight 106.14 kg Rohit Metzger MD Work Phone: [facility] 05-16-2023 13:48-0500 Body height 165.1 cm Rohit Metzger MD Work Phone: [employer] 05-16-2023 13:48-0500 Body mass index (BMI) [Ratio] 38.94 kg/m2 Rohit Metzger MD Work Phone: [employer] 05-16-2023 13:48-0500 Body weight 106.14 kg Rohit Metzger MD Work Phone: [employer] 01-02-2023 10:00-0400 Body height 162.56 cm Johnathon Winter Other [employer] Other 01-02-2023 10:00-0400 Body mass index (BMI) [Ratio] 42.91 kg/m2 Johnathon Winter Other [employer] Other 01-02-2023 10:00-0400 Body weight 113.4 kg Johnathon Winter Other [employer] Other 01-02-2023 10:00-0400 Diastolic blood pressure 82 mm[Hg] Johnathon Winter Other [employer] Other 01-02-2023 10:00-0400 Systolic blood pressure 126 mm[Hg] Johnathon Winter Other [employer] Other 2022 11:00-0400 Body height 162.56 cm Johnathon Winter Other [employer] Other 2022 11:00-0400 Body mass index (BMI) [Ratio] 44.56 kg/m2 Johnathon Winter Other [employer] Other 2022 11:00-0400 Body weight 117.75 kg Johnathon Winter Other [employer] Other 2022 11:00-0400 Diastolic blood pressure 101 mm[Hg] Johnathon Winter Other [employer] Other 2022 11:00-0400 SaO2% (BldA) [Mass fraction] 100 % Johnathon Winter Other [employer] Other 2022 11:00-0400 Systolic blood pressure 138 mm[Hg] Johnathon Winter Other [employer] Other 10-11-2022 18:45-0400 Body height 165.1 cm Roxie Garcia MD Work Phone: [employer] 10-11-2022 18:45-0400 Body mass index (BMI) [Ratio] 43.93 kg/m2 Roxie Garcia MD Work Phone: [employer] 10-11-2022 18:45-0400 Body temperature 99 [degF] Roxie Garcia MD Work Phone: [employer] 10-11-2022 18:45-0400 Body weight 119.75 kg Roxie Garcia MD Work Phone: [employer] 10-11-2022 18:45-0400 Diastolic blood pressure 108 mm[Hg] Roxie Garcia MD Work Phone: [facility] [employer] 10-11-2022 18:45-0400 Heart rate 87 /min Roxie Garcia MD Work Phone: [facility] [employer] 10-11-2022 18:45-0400 Respiratory rate 16 /min Roxie Garcia MD Work Phone: [facility] [employer] 10-11-2022 18:45-0400 SaO2% (BldA) [Mass fraction] 98 % Roxie Garcia MD Work Phone: [facility] [employer] 10-11-2022 18:45-0400 Systolic blood pressure 160 mm[Hg] Roxie Garcia MD Work Phone: [facility] [employer] 01-03-2022 13:54-0400 Diastolic blood pressure 95 mm[Hg] Teo Froylanfman DO [facility] [employer] 01-03-2022 13:54-0400 Heart rate 61 /min Teo Helfman DO [facility] [employer] 01-03-2022 13:54-0400 SaO2% (BldA) [Mass fraction] 100 % Teo Helfman DO [facility] [employer] 01-03-2022 13:54-0400 Systolic blood pressure 142 mm[Hg] Teo Helfman DO [facility] [employer] 01-03-2022 11:46-0400 Body height 165.1 cm Teo Froylanfman DO [facility] [employer] 01-03-2022 11:46-0400 Body mass index (BMI) [Ratio] 44.1 kg/m2 Teo Helfman DO [facility] [employer] 01-03-2022 11:46-0400 Body temperature 97.7 [degF] Teo Helfman DO [employer] [facility] [employer] 01-03-2022 11:46-0400 Body weight 120.2 kg Teo Helfman DO [facility] [employer] 01-03-2022 11:46-0400 Respiratory rate 16 /min Teo Helfman DO [facility] [employer] 08-19-2021 18:03-0400 Diastolic blood pressure 98 mm[Hg] Radha Sanders MD Work Phone: [facility] [employer] 08-19-2021 18:03-0400 Heart rate 92 /min Radha Sanders MD Work Phone: [facility] [employer] 08-19-2021 18:03-0400 Respiratory rate 16 /min Radha Sanders MD Work Phone: [facility] [employer] 08-19-2021 18:03-0400 SaO2% (BldA) [Mass fraction] 96 % Radha Sanders MD Work Phone: [facility] [employer] 08-19-2021 18:03-0400 Systolic blood pressure 145 mm[Hg] Radha Sanders MD Work Phone: [employer] 08-19-2021 16:28-0400 Body height 165.1 cm Radha Sanders MD Work Phone: [facility] [employer] 08-19-2021 16:28-0400 Body mass index (BMI) [Ratio] 45.76 kg/m2 Radha Sanders MD Work Phone: [facility] [employer] 08-19-2021 16:28-0400 Body temperature 98.6 [degF] Radha Sanders MD Work Phone: [facility] [employer] 08-19-2021 16:28-0400 Body weight 124.74 kg Radha Sanders MD Work Phone: [facility] [employer] Encounters Encounter Date Encounter Type Care Provider Facility Start: 08-23-2023 End: 08-23-2023 ambulatory KELI Resendez Facility:[facility] Start: 08-02-2023 End: 08-02-2023 ambulatory ROBERT URRUTIA Not Available Start: 07-31-2023 End: 08-01-2023 ambulatory Bhavin Montgomery MD Facility:[facility] Start: 07-19-2023 End: 07-19-2023 ambulatory SANJEEV LOPEZ Not Available Start: 07-17-2023 End: 07-18-2023 ambulatory [facility] Start: 06-26-2023 End: 06-27-2023 ambulatory Christiano Rivera MD Facility:[facility] Start: 06-15-2023 End: 06-15-2023 ambulatory SANJEEV LOPEZ Not Available Start: 06-12-2023 End: 06-12-2023 ambulatory [facility] Comment on above: Lumbar radiculopathy , chronic (Primary Dx); Herniated lumbar intervertebral disc Start: 06-12-2023 End: 06-12-2023 Office outpatient visit 10 minutes Rohit Smith MD Work Phone: [facility] Comment on above: 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) Start: 06-06-2023 ambulatory RENY [facility] Start: 05-24-2023 Orders Only Reny barlow CERTIFICATION ENGINEER-SCHEDULING CLERK Work Phone: [facility] Comment on above: Herniated lumbar int ervertebral disc (Primary Dx); Lumbar radiculopathy, chronic Start: 05-23-2023 End: 05-23-2023 ambulatory Tee Peterson Facility:[facility] Start: 05-23-2023 End: 05-23-2023 ambulatory MD Tee Peterson Work Phone: [facility] Work Phone: Start: 05-23-2023 End: 05-23-2023 Departed Referred MD Tee Peterson Work Phone: [facility] Start: 05-19-2023 End: 05-20-2023 ambulatory RENY [facility] Start: 05-16-2023 End: 05-16-2023 ambulatory [facility] Start: 05-16-2023 End: 05-16-2023 Office outpatient new 30 minutes Rohit Smith MD Work Phone: [facility] Comment on above: 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); Finger injury, right, initial encounter Start: 05-15-2023 Orders Only Reny barlow CERTIFICATION ENGINEER-SCHEDULING CLERK Work Phone: [facility] Comment on above: Herniated lumbar int ervertebral disc (Primary Dx) Start: 05-10-2023 End: 05-10-2023 ambulatory Johnathon Winter Other [employer] Other Start: 05-10-2023 Encounter by kriss Winter [facility] Start: 05-10-2023 Non-patient / Non-visit MD Jones Work Phone: [facility] Work Phone: Start: 05-04-2023 End: 05-05-2023 ambulatory RENYCHELSEA NO [facility] Start: 05-04-2023 End: 05-04-2023 Office outpatient visit 10 minutes Oswaldo Dee AUTO ADJUDICATION SPECIALIST Work Phone: [facility] Comment on above: 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); Pain in finger of right hand Start: 05-01-2023 End: 05-01-2023 ambulatory SANJEEV LOPEZ Not Available Start: 04-19-2023 End: 04-19-2023 ambulatory Scottie Lyn [facility] [employer] Other Start: 04-19-2023 Telephone encounter Scottie Lyn [facility] Start: 04-14-2023 End: 04-14-2023 Orders Only Serina Rodriguez [facility] Comment on above: Back pain, unspecifi ed back location, unspecified back pain laterality, unspecified chronicity (Primary Dx) Start: 04-12-2023 End: 04-12-2023 ambulatory Johnathon Winter [employer] Other Start: 04-12-2023 Telephone encounter Johnathon Winter [facility] Start: 04-11-2023 End: 04-11-2023 ambulatory Johnathon Winter Other [employer] Other Start: 04-11-2023 Telephone encounter Johnathon Winter [facility] Start: 04-10-2023 End: 04-10-2023 ambulatory Johnathon Winter Other [employer] Other Start: 04-10-2023 Encounter by kriss burgos Johnathon Winter [facility] Start: 03-16-2023 End: 03-16-2023 ambulatory OSWALDO DEE Not Available Start: 03-09-2023 End: 03-09-2023 ambulatory Johnathon Jay Maggy Facility:[facility] Start: 01-30-2023 End: 01-30-2023 ambulatory Johnathon Winter [facility] [employer] Other Start: 01-30-2023 Telephone encounter Johnathon Winter [facility] Start: 01-02-2023 End: 01-02-2023 ambulatory Johnathon Winter Other [employer] Other Start: 01-02-2023 Office outpatient vi sit 15 minutes Johnathon Winter [facility] Start: 12-09-2022 End: 12-09-2022 ambulatory Johnathon Winter Other [employer] Other Start: 12-09-2022 Telephone encounter Johnathon Winter [facility] Start: 12-08-2022 End: 12-08-2022 ambulatory Johnathon Winter Other [employer] Other Start: 12-08-2022 Telephone encounter Johnathon Winter [facility] Start: 2022 End: 2022 ambulatory Johnathon Winter Other [employer] Other Start: 2022 Office outpatient ne w 30 minutes Johnathon Winter [facility] Start: 10-11-2022 End: 10-11-2022 Emergency department patient visit JOHNATHON WINTER [facility] Start: 10-11-2022 End: 10-11-2022 Emergency department patient visit Roxie Garcia MD Work Phone: [facility] Comment on above: Sprain of right ankl e, unspecified ligament, initial encounter (Primary Dx) Start: 07-11-2022 End: 07-11-[address] SANJEEV LOPEZ . Facility:[facility] Start: 04-29-2022 End: 04-30-[address] SANJEEV LOPEZ . Facility:[facility] Start: 02-16-2022 End: 02-16-2022 Emergency department patient visit JOHNATHON WINTER [facility] Start: 01-03-2022 End: 01-03-2022 Emergency department patient visit JOHNATHON WINTER [facility] Start: 01-03-2022 End: 01-03-2022 Emergency department patient visit Teo Thomas DO [facility] Comment on above: Gastroenteritis (Neetu emil Dx) Start: 08-19-2021 End: 08-19-2021 Emergency department patient visit Radha Sanders MD Work Phone: [facility] Comment on above: Herniated lumbar int ervertebral disc (Primary Dx) Procedures Date Procedure Procedure Detail Performing Clinician Start: 06-12-2023 Follow-up visit Follow-up ROHIT CAMEJO V Start: 10-11-2022 Radex ankle complete minimum 3 views Bailee Lew CERTIFICATION ENGINEER - SCHEDULING CLERK Work Phone: Start: 01-03-2022 Urinalysis microscop ic only Zachariah Foster CERTIFICATION ENGINEER - AUTO ADJUDICATION SPECIALIST Work Phone: Start: 01-03-2022 Urnls dip stick/tabl et rgnt auto w/o microscopy Zachariah Foster CERTIFICATION ENGINEER - AUTO ADJUDICATION SPECIALIST Work Phone: Start: 01-03-2022 Ct abdomen & pelvis w/contrast material Zachariah Foster CERTIFICATION ENGINEER - AUTO ADJUDICATION SPECIALIST Work Phone: Start: 01-03-2022 Assay of lipase Zachariah Foster CERTIFICATION ENGINEER - AUTO ADJUDICATION SPECIALIST Work Phone: Start: 12-01-2021 Adult depression screening assessment Smallsbenji Rodriguez Mina Start: 08-19-2021 Ct lumbar spine w/o contrast material Radha Sanders MD Work Phone: Plan of Treatment Date Care Activity Detail Author Start: 06-11-2024 Adult BMI Screening Adult BMI Screen ing [facility] Start: 06-11-2024 Tobacco Screening Tobacco Screening [facility] Start: 05-16-2024 Adult BMI Screening Adult BMI Screen ing [facility] Start: 05-16-2024 Tobacco Screening Tobacco Screening [facility] Start: 05-08-2024 Adult BMI Screening Adult BMI Screen ing [facility] Start: 05-08-2024 Tobacco Screening Tobacco Screening [facility] Start: 04-14-2024 Adult BMI Screening Adult BMI Screen ing [facility] Start: 04-14-2024 Tobacco Screening Tobacco Screening [facility] Start: 07-19-2023 End: 07-19-2023 Patient encounter procedure 07/19/2023 1:45 PM EDT Office Visit [facility] [address] [place] [address] Vishal Martin DO [address] [place] [address] [facility] Start: 07-17-2023 End: 07-17-2023 Patient encounter procedure 07/17/2023 10:00 AM EDT Office Visit [facility] [address] [place] [place] [phone] Sanjeev Lopez DO [address] [place] [address] [facility] Start: 06-12-2023 End: 06-12-2023 Patient encounter procedure 06/12/2023 10:05 AM EDT Office Visit [facility] [address] [place] [phone] Rohit Smith MD [address] [place] [address] [facility] Start: 05-19-2023 End: 05-19-2023 Patient encounter procedure 05/19/2023 10:15 AM EST Appointment [facility] [address] [place] [phone] [facility] Start: 05-16-2023 End: 05-16-2023 Patient encounter procedure 05/16/2023 1:45 PM EST Office Visit [facility] [address] [facility] [address] [place] [phone] Rohit Smith MD [address] [place] [address] [facility] Start: 05-08-2023 End: 05-08-2023 Patient encounter procedure 05/08/2023 1:30 PM EST Office Visit [facility] [address] [phone] Reny No, CERTIFICATION ENGINEER-SCHEDULING CLERK [address] [facility] [address] [place] [address] [facility] Start: 04-14-2023 End: [...] Influenza vaccination Influenza Vacc ine [facility] Start: 12-01-2022 Depression Screening Depression Scre ening [facility] Start: 11-01-2022 Influenza vaccination Flu vaccine (# 1) [facility] Start: 09-03-2022 Adult BMI Follow Up Plan Adult BMI Follow Up Plan [facility] Start: 12-02-2021 Influenza vaccination Flu vacc ine (Season Ended) [facility] Start: 11-01-2021 Influenza vaccination Flu vaccine (# 1) [facility] Start: 2017 Diabetes screen Diabetes screen [facility] Start: 2012 Screening for malignant neoplasm of cervix [facility] Start: 12-01-2003 Screening for malignant neoplasm of cervix Pap smear [facility] Start: 2001 DTaP,Tdap and Td Vaccines (1 - Tdap) DTaP,Tdap and Td Vaccines (1 - Tdap) [facility] Start: 2001 DTaP/Tdap/Td vaccine (1 - Tdap) DTaP/Tdap/Td vaccine (1 - Tdap) [facility] Start: 2000 Hepatitis C screening Hepatitis C sc reen [facility] Start: 1994 Depression Screen Depression Screen [facility] Start: 12-01-1987 COVID-19 Vaccine (1) COVID-19 Vaccin e (1) [facility] Start: 12-01-1983 Varicella vaccine (1 of 2 - 2-dose childhood series) Varicella vaccine (1 of 2 - 2-dose childhood series) [facility] Start: 06-01-1983 COVID-19 Vaccine (#1) COVID-19 Vacci ne (#1) [facility] Payers Date Payer Category Payer Self-pay 2022 Unknown [id number] 2022 Unknown [id number] 2020 Unknown [id number] 1.2.8 [id number] 1982 Unknown [id number] 2.16.84 0.1.100781.3.579.2.593 1982 Unknown [id number] 2.16.84 0.1.035163.3.579.2.593 1982 Unknown [id number] 2.16. 840.1.661626.3.579.2.175 1982 Unknown [id number] 2.16. 840.1.466560.3.579.2.175 1982 Unknown [id number] 2.16. 840.1.919035.3.579.2.175 1982 Unknown [id number] 2.16.8 40.1.773533.3.579.2.1286 1982 Unknown [id number] 2.16.8 40.1.706819.3.579.2.128 1982 Unknown [id number] 2.16.8 40.1.174101.3.579.2.128 1982 Unknown [id number] 2.16.8 40.1.869572.3.579.2.1285 1982 Unknown [id number] 2.16.8 40.1.186132.3.579.2.1285 1982 Unknown [id number] 2.16.84 0.1.763410.3.579.2.128 1982 Unknown [id number] 2.16.84 0.1.539956.3.579.2.9 1982 Unknown [id number] 2.16.84 0.1.172324.3.579.2.9 1982 Unknown [id number] 2.16.84 0.1.081123.3.579.2.1258 1982 Unknown [id number] 2.16.84 0.1.141828.3.579.2.1259 1982 Unknown [id number] 2.16.84 0.1.406151.3.579.2.1259 1982 Unknown [id number] 2.16.840 .1.019289.3.579.2.9 1982 Unknown [id number] 2.16. 840.1.814500.3.579.2.196 1982 Unknown [id number] 2.16. 840.1.173806.3.579.2.196 1982 Unknown [id number] 2.16. 840.1.737525.3.579.2.196 1982 Unknown [id number] 2.16.8 40.1.081932.3.579.2.718 1982 Unknown [id number] 2.16.8 40.1.138333.3.579.2.718 1959 Unknown [id number] Social History Date Type Detail Facility Start: 06-15-2015 End: 03-31-2022 Tobacco smoking status LAIS Never smoked tobacco [employer] Start: 06-15-2015 End: 03-31-2022 Tobacco use and exposure Smokeless tobacco non-user [employer] Phone: Start: 08-19-2021 End: 06-12-2023 Alcohol intake Current non-drinker of alcohol (finding) [employer] Phone: Start: 05-14-2020 End: 08-19-2021 Alcohol intake [employer] Start: 06-15-2015 History SDOH Alcohol Comment rarely [employer] Phone: Start: 1980 Sex Assigned At Not on file [employer] Phone: Start: 08-09-2021 End: 01-03-2022 Exposure to SARS-CoV-2 (event) Not sure [employer] Phone: History of tobacco use Passive smoker [employer] Phone: Start: 05-14-2020 End: 04-14-2023 Sex Assigned At [facility] [employer] Adolescent depressio n screening assessment [address] [facility] Start: 05-04-2023 Alcohol intake Ex-drinker (finding) [facility] Start: 10-09-2022 Alcohol Comment Alcohol: 1 or 2 drinks on typical day/monthly or less. Caffeine: 1-2 cups/day tea [facility] Start: 1980 Sex Assigned At Female [facility] Start: 09-21-2022 Gender identity Identifies as female gender (finding) [facility] Start: 09-21-2022 Sexual orientation Heterosexual (finding) [facility] Clinical Notes 08-19-2021 to 08-23-2023 Rohit Metzger [...] wine (148 mL (more content not included)... [facility] 06-12-2023 History of Present illness Narrative [...] take another few months to subside. Recommended gbog-efn-rnoemub pain relievers as needed. She is content [...] any severe symptoms. documented in this encounter [facility] History of Present illness Narrative [facility] Chief Complaint: [...] a snap. She initially followed up with [facility] Orthopedics and was diagnosed with right [...] External notes reviewed: I reviewed notes from [facility] orthopaedics. Review of test/study reports: I reviewed an x-ray obtained of the right ring finger. There were no acute osseous abnormality such as fracture dislocation. My personal interpretation of tests: I personally viewed and interpreted X-rays from [facility] as above. Xrays done in office today: None. Assessment: 1. Mallet deformity of right ring finger - [facility] - [place], [place] 2. Finger injury, right, initial encounter - [facility] [place] - [place], [place] Plan: I discussed treatment options with [...] flexion. documented in this encounter [facility] 05-10-2023 Evaluation note Encounter Date Diagnosis Assessment Notes May, Adult ADHD (attention deficit hyperactivity disorder) (ICD-10 - F90.9) [email or web address] Other 02-01-2024 History of Present illness Narrative* [...] finger for about 2 weeks. Went to [facility]09 due to having numbness in finger and unable to straighten it. Had XR at . On 03/13, pt went to [facility] and had another XR. Unable to get into hand specialist at [facility] until May 16. Continues to [...] crooked. PT is RT handed Prior [place]: [facility] 03/09/23, XR, Spl[place], [facility], XR 03/13/23, Ice, Heat, IBU, [employer] ALLERGIES: No Known Allergies HOME MEDICATIONS: Current Outpatient Medications Medication Instructions amphetamine-dextroamphetamine (Adderall) 20 MG tablet 1 TABLET ORALLY MID DAY 30 DAYS cyclobenzaprine (Flexeril) 10 MG tablet PLEASE SEE ATTACHED FOR DETAILED DIRECTIONS fluconazole (DIFLUCAN) 100 mg, Oral, Daily nystatin (Mycostatin) 789482 UNIT/GM powder APPLY TO AFFECTED AREA TOPICALLY [...] normal Pronation: normal Supination: normal Muscle Strength Inspector Floor: 3/5 Other Erythema: absent Pulse: present Comments: [...] develop for requiring urgent evaluation. Oswaldo Dee APRN-SCHEDULING CLERK documented in this encounterMadison Medical [id number] Evaluation note* Encounter Date Diagnosis Assessment Notes Treatment Notes Treatment Clinical Notes Apr, Adult ADHD (attentio n deficit hyperactivity disorder) (ICD-10 - F90.9) [email or web address] Other 01-10-2024 Evaluation note* Encounter Date Diagnosis Assessment Notes Treatment Notes Treatment Clinical Notes Apr, Adult ADHD (attentio n deficit hyperactivity disorder) (ICD-10 - F90.9) [email or web address] Other 01-09-2024 Evaluation note* Encounter Date Diagnosis Assessment Notes Treatment Notes Treatment Clinical Notes Apr, Adult ADHD (attentio n deficit hyperactivity disorder) (ICD-10 - F90.9) [email or web address] Other 01-08-2024 Evaluation note* Encounter Date Diagnosis Assessment Notes Treatment Notes Treatment Clinical Notes Apr, Adult ADHD (attentio n deficit hyperactivity disorder) (ICD-10 - F90.9) [email or web address] Other 12-07-2023 NotePatient Education Materials Follows: Mallet [...] or lying down. General instructions ? Take hsym-reh-lqgjbys and prescription medicines only as told by [...] by your health care p (more contentnot included)...[id number] * Encounter Date Diagnosis Assessment Notes Treatment Notes Treatment Clinical Notes Jan, Adult ADHD (attentio n deficit hyperactivity disorder) (ICD-10 - F90.9) [email or web address] Other 10-02-2023 Evaluation note* Encounter Date Diagnosis [...] in 3 months or sooner if needed. [email or web address] Other 09-08-2023 Evaluation note* Encounter Date Diagnosis Assessment Notes Treatment Notes Treatment Clinical Notes Dec, Adult ADHD (attentio n deficit hyperactivity disorder) (ICD-10 - F90.9) [email or web address] Other 09-07-2023 Evaluation note* Encounter Date Diagnosis Assessment Notes Treatment Notes Treatment Clinical Notes Dec, Adult ADHD (attentio n deficit hyperactivity disorder) (ICD-10 - F90.9) [email or web address] Other 08-30-2023 Evaluation note* Encounter Date Diagnosis [...] Cutaneous candidiasis (ICD-10 - B37.2) Refilled diflucan. [email or web address] Other 07-11-2023 Hospital Discharge instructions* Discharge Instructions* RIZWAN Dietz CNP - 10/11/2022 8:08 PM EDT Please call and schedule a follow-up appointment with [facility]. Use an ice pack or [...] Ankle Sprain (Lebanese) [facility] Discharge instructions* Instructions* Radha Sanders MD - 08/19/2021 May use ice or heat, whichever feels better. May use Esmond for pain. Prednisone as directed. Follow-up with [...] a follow up appointment THANK YOU!!! From [facility] On behalf of the Emergency Department staff at [facility], I would like to thank you for giving us the opportunity to address your health care needs and concerns. We hope that during your visit, our service was delivered in a professional and caring manner. Please keep [facility] in mind as we walk with [...] how we did during your visit at [email or web address] and let us know about your experience * Attachments The following attachments cannot be sent through Care Everywhere. * Herniated Disc (Lebanese) [facility] Phone: evaluation note* Diagnosis Herniated lumbar intervertebral disc- Primary Displacement of lumbar intervertebral disc without myelopathy documented in this encounter [employer] Phone: evaluation note* Diagnosis Gastroenteritis- Primary Other and unspecified noninfectious gastroenteritis and colitis documented in this encounter [facility] [employer] Phone: evaluation note* Diagnosis Sprain of right ankle, unspecified ligament, initial encounter- Primary documented in this encounter [facility] [employer]Evaluation note* Diagnosis Back pain, unspecified back location, unspecified back pain laterality, unspecified chronicity- Primary documented in this encounter [facility] [employer]Evaluation noteNo InformationNort [employer] Other Evaluation note* Diagnosis 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 Pain in finger of right hand Pain in soft tissues of limb documented in this encounter [facility] HealthcareEvaluation note* Diagnosis Herniated lumbar intervertebral disc- Primary Displacement of lumbar intervertebral disc without myelopathy [facility] System[facility] note* Diagnosis 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 Finger injury, right, initial encounter documented in this encounter [facility] [employer] SystemEvaluation note* Diagnosis Herniated lumbar intervertebral disc- Primary Displacement of lumbar intervertebral disc without myelopathy Lumbar radiculopathy, chronic documented in this encounter [facility] [employer] SystemEvaluation noteNo assessment information [facility] Work Phone: Evaluation note* Diagnosis Lumbar radiculopathy, chronic- Primary Herniated lumbar intervertebral disc Displacement of lumbar intervertebral disc without myelopathy documented in this encounter [facility] System[facility] note* Diagnosis 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 documented in this encounter [facility] SystemHistory general Narrative - Reported* Type Description Date Medical History PCOS/insulin resistant Medical History PCOS (polycystic ovarian syndrom e) Medical History Frequent headaches Medical History Gestational diabetes Medical History Prediabetes Surgical History cholecystectomy 2004 Surgical History appendectomy 2006 Surgical History Hospitalization History see surgical hx [employer] Other Hospital Discharge instructions* Attachments The following attachments cannot be sent through Care Everywhere. * Gastroenteritis (Lebanese) [facility] [employer] Work Phone: InstructionsNot on filedocumented in this encounter [facility] [place] SystemInstructionsNot on filedocumented in this encounter [facility] [place] SystemInstructionsNot on filedocumented in this encounter [facility] [place] SystemInstructionsNot on filedocumented in this encounter [facility] SystemReason for referral (narrative)* Consultation (Routine) - Pending Review Specialty Diagnoses / Procedures Referred By Contact Referred To Contact Physical Medicine and Rehabilitation Diagnoses Herniated lumbar intervertebral disc Lumbar radiculopathy, chronic Reny No APRN-RASHAUN [address] [place] [address] Vishal Martin DO [address] [place] [address] Referral ID Status Reason Start Date Expiration Date Visits Requested Visits Authorized [id number] Pending Review Specialty Services Required 05/24/2023 05/23/2024 [address] [facility] [address] [facility]ative[facility] Consultation (Routine) - Pending Review Specialty Diagnoses / Procedures Referred By Contac t Referred To Contact Pain Medicine Diagnoses Lumbar radiculopathy, chronic Herniated lumbar intervertebral disc Reny No APRN-RASHAUN [address] [place] [address] Davis Silva MD [address] [place] [address] Referral ID Status Reason Start Date Expiration Date V isits Requested Visits Authorized [id number] Pending Review 06/12/2023 06/11/2024 1 [address] [facility] Advance Directives No Advanced Directives Records FoundDocuments on File Type Date Recorded Patient Roof Fixer Expl anation ACP-Advance Directive ACP-Power of Cad Technician Summary Purpose Family History No Family History [...] site of digit, initial encounter Nicole Lockwood, CERTIFICATION ENGINEER-SCHEDULING CLERK [address] [place] [address] Rohit Smith MD [address] [facility] [address] [place] [address] Referral ID Status Reason Start Date Expiration Date Visits Requested Visits Authorized [id number] Pending Review Specialty Services Required 3 03/12/2024 [...] would not scan at bedside. Verified with [facility] prior to administration.) Scheduled Medication Order [...] Care Teams (unrecognized sec tion and content) Eight Arm Operator Relationship Specialty Start Date End Date Johnathon Winter MD PCP - General Family Medicine 03/08/16 Eight Arm Operator Relationship Specialty Start Date End Date Johnathon Winter MD PCP - General Family Medicine 03/08/16 Eight Arm Operator Relationship Specialty Start Date End Date Johnathon Winter MD PCP - General Family [facility] 03/08/16 Eight Arm Operator Relationship Specialty Start Date End Date Johnathon Winter MD [address] [place], [place] [id number] PCP - General 03/13/23 Eight Arm Operator Relationship Specialty Start Date End Date Johnathon Winter MD [address] [place] [id number] PCP - General Family [facility] 12/12/22 Eight Arm Operator Relationship Specialty Start Date End Date Johnathon Winter MD [address] [place] [id number] PCP - General 03/13/23 Eight Arm Operator Relationship Specialty Start Date End Date Johnathon Winter MD [address] [place] [id number] PCP - General 03/13/23 Eight Arm Operator Relationship Specialty Start Date End Date Johnathon Winter MD [address] [place] [id number] PCP - General 03/13/23 Team Status: Active Member Role Status Dates Johnathon Winter MD Primary Care Provide r, Attending Provider Active Start: May 10, 2023 Team Status: Inactive Member Role Status Dates Tee Peterson MD Attending Provider Active Start: May 23, 2023 End: May 23, 2023 Eight Arm Operator Relationship Specialty Start Date End Date Johnathon Winter MD [address] [place] [address] PCP - General 03/13/23 INFORMATION SOURCE (unrecogn ized section and content) DATE CREATED AUTHOR 07/17/2022 [facility] DATE CREATED AUTHOR AUTHOR'S ORGANIZ ATION 10/12/2022 [facility] DATE CREATED AUTHOR AUTHOR'S ORGANIZ ATION 06/01/2023 [facility] DATE CREATED AUTHOR AUTHOR'S ORGANIZ ATION 06/07/2023 [facility] DATE CREATED AUTHOR AUTHOR'S ORGANIZ ATION 06/12/2023 [facility] DATE CREATED AUTHOR AUTHOR'S ORGANIZ ATION 08/03/2023 [facility] EPIC DATE CREATED AUTHOR AUTHOR'S ORGANIZ ATION 08/10/2023 [facility] DATE CREATED AUTHOR AUTHOR'S ORGANIZ ATION 09/02/2023 [facility] l Goals (unrecognized section and content) [...] BE BASED ON THE PRIMARY CLINICAL RECORDS. The city of [place] [employer] [facility]. provides no warranty or guarantee of the accuracy or completeness of information in this document.
[2023-11-20 08:08] VITALS: BP 141/102; PULSE 86; TEMP 36.2; O2SAT 100
[2023-11-20 08:21] LABS: Glucometer 104 mg/dL (74-106)
[2023-11-20] MEDS: 0.9 % SODIUM CHLORIDE 10 ML SYRINGE - SALINE FLUSH INJ (08:59)
[2023-11-20] MEDS: IOHEXOL 240 MG/ML - 10 ML VIAL INJ (09:00)
[2023-11-20] MEDS: LIDOCAINE HCL 2% 400 MG/20 ML MDV 3 ML INJ (09:00)
[2023-11-20] MEDS: BUPIVACAINE HCL 0.25% PF 25 MG/10 ML VIAL 2 ML INJ (09:00)
[2023-11-20] MEDS: TRIAMCINOLONE ACETONIDE 40 MG/ML VIAL 80 MG INJ (09:01)
[2023-11-20 09:02] VITALS: BP 149/99; BP 164/99; PULSE 80; PULSE 88; O2SAT 93; O2SAT 95
--- NOTE | 2023-11-20 09:02 | P.ON_ITS ---
Date of procedure: 11/20/23 Pre-op diagnosis: Pain due to lumbar stenosis with neurogenic claudication Post-op diagnosis: same as pre-op Procedure: Procedure: Left L4-5, l5-S1 transforaminal epidural steroid injection Medications: Bupivacaine 0.25% 2cc, lidocaine 2% 1cc, kenalog 80mg The patient was seen and examined in the preoperative holding area.? Informed consent was obtained and placed on the chart.? Patient was brought to the medical procedure unit and placed in the prone position where a timeout was completed verifying the correct patient, procedure site, position, and planned special equipment using sterile aseptic technique.? Under direct fluoroscopic visualization a 25-gauge Quincke tipped spinal needle was advanced to the designated neural foramen where contrast dye was injected to show adequate spread.? The needle was inserted at level left L4-5. There was no evidence of vascular or adverse uptake.? Epidural spread was appreciated.? The above- mentioned injectate was then placed in a 1.5 mL aliquot preceded by negative aspiration.? The needle was removed. The needle was inserted and the procedure repeated at level left L5-S1.? The surgery site was covered.? Patient was taken to the postprocedural recovery area and monitored for an appropriate length of time before found suitable for discharge in the accompaniment of a responsible adult. Anesthesia: Local Surgeon: Christiano Rivera Pathology: none sent Condition: stable Disposition: no change
== END 2023-11-20 09:05 | disposition home or self-care (01) ==
LOC: SURGOUT 07:37
PROVIDERS: PCP Family Medicine; Visit Provider Anesthesiology
DX: M48.062 Spinal stenosis, lumbar region with neurogenic claudication (principal)
CPT/HCPCS: 36415; 64483; 64484; 82948; J0665; J3301; Q9966

== ENCOUNTER 2023-11-29 14:46 | Outpatient (OUT) | payer BC, SELFPAY ==
[2023-11-30 09:15] LABS: DHEA-Sulfate 40.8 ug/dL (57.3-279.2); Sex Horm Binding Glob, Serum 60.9 nmol/L (24.6-122.0)
[2023-12-02 19:07] LABS: Free Testosterone(Direct) <0.2 pg/mL (0.0-4.2); Testosterone <3 ng/dL (8-60)
== END 2023-11-29 14:47 | disposition home or self-care (01) ==
LOC: LAB 14:46
PROVIDERS: PCP Family Medicine; Visit Provider Obstetrics & Gynecology
DX: R68.82 Decreased libido (principal)
CPT/HCPCS: 36415; 82627; 84270; 84402; 84403

== ENCOUNTER 2023-12-06 09:42 | Outpatient (REF) | payer BC, SELFPAY ==
--- OUTSIDE RECORDS SUMMARY | 2023-12-14 09:54 | XMS_ITS | CCD ---
Author Organization [facility] Care Team Providers Care Social Media Marketing Manager Name Role Phone Johnathon Winter MD Primary Care Provider JESSICA ., DR ROMERO Admitting Unavailable JESSICA ., DR ROMERO Attending Unavailable REQUEST, DR NONE LISTED Primary Care Unavaila ble JESSICA ., DR ROMERO Consulting Unavailable [employer] Unavailable JESSICA ., DR ROMERO Admitting [...] Unavailable Johnathon Winter MD Primary Care Provider [phone] MD Tee Peterson Attending Provider ROHIT LARKIN Attending Unavailable MAGGY JOHNATHON E Referring Unavailable WINTER JOHNATHON E Primary Care Unavailable WINTERJOHNATHON E Referring Unavailable WINTER, JOHNATHON E Primary Care Unavailable KAL MARTINEZ Attending Unavailable ROHIT LARKIN Attending Unavailable ASMITA MONTGOMERY Referring Unavailable WINTER JOHNATHON E Primary Care Unavailable KELI Resendez Admitting Unavailable Winter, Johnathon E Primary Care Unavailable KELI Resendez Attending Unavailable Maggy Johnathon E Primary Care Unavailable Sanchez John Attending Unavaila ble Janis PA, Sanchez R. Admitting Unavaila ble RENY NO Attending Unavailable MAGGY JOHNATHON E Referring Unavailable WINTER, JOHNATHON E Primary Care Unavailable MARTÍN ORTEGA Attending Unavailable MAGGY, JOHNATHON Jay Referring Unavailable WINTER, JOHNATHON E Primary Care Unavailable ONEAL, RENY Referring Unavailable WINTER, JOHNATHON E Primary Care Unavailable NO, RENY Referring Unavailable WINTER, JOHNATHON E Primary Care Unavailable Felicia SÁNCHEZ, Bhavin Primary Care Unavailable Miguel SÁNCHEZ, Christiano Mcgovern Attending Unavailable Felicia SÁNCHEZ, Bhavin Primary Care Unavailable Miguel SÁNCHEZ, Christiano Mcgovern Attending Unavailable Felicia SÁNCHEZ, [facility] Care Unavailable Miguel SÁNCHEZ, Christiano Mcgovern Attending Unavailable Miguel SÁNCHEZ, Christiano Mcgovern Attending Unavailable Felicia SÁNCHEZ, [facility] Unavailable Miguel SÁNCHEZ, Christiano Mcgovern Attending Unavailable Felicia SÁNCHEZ, [facility] Unavailable SANJEEV LOPEZ Attending Unavailable OSWALDO DEE Attending Unavailable SANJEEV LOPEZ Attending Unavailable SANJEEV LOPEZ Attending Unavailable ROBERT URRUTIA Attending Unavailable LA LOPEZY Referring Unavailable LA LOPEZY Attending Unavailable OSWALDO DEE Attending Unavailable SANJEEV LOPEZ Attending Unavailable DO Sanjeev Lopez Attending Provider [phone] Tee Peterson Attending Unavailable Tee Peterson Admitting Unavailable Sanjeev Lopez Attending Unavailable Jessica Sanjeev Admitting Unavailable Allergies Allergy Classification Reported Allergen(s) Allergy [...] Active 30 MG PO Twice daily 60 October 25, 2023 Start: 06-21-2023 End: 06-21-2023 [...] once a week. 0 02/27/2023 Active nystatin 239947 unt/ml topical cream (9 sources) Polyene Antifungal Start: 05-01-2023 End: 04-30-2024 nystatin (Mycostatin) cream Indications: Follow-up encounter involving medication , Superficial skin infection Apply topically 2 (two) times a day 30 g 3 05/01/2023 04/30/2024 Active Start: 04-14-2023 nystatin (MYCO STATIN) powder Apply 1 Application topically in the morning and 1 Application before bedtime. 0 04/14/2023 Active Start: 04-14-2023 nystatin (Myco statin) 240061 UNIT/GM powder Indications: Skin irritation APPLY TO [...] days 20 tablet 0 08/19/2021 08/29/2021 Active Ylj-Pqr-OZ-Fish Oil ([facility] GUMMY) 0.4-113.5 MG CHEW (2 sources) Dtp-Jsl-XX-Fish Oil ([facility] GUM[facility]) 0.4-113.5 MG CHEW Take [...] 8:36am Start: 12-08-2022 take 1 capsule by [facility] every twenty-four hours Vyvanse 50 MG 1 capsule in the morning Orally Once a day for 30 days May, Active Start: 2022 take 1 capsule by mo ut every twenty-four hours Vyvanse 30 MG 1 [...] 11-29-2023 Testosterone Free [Mass/Vol] <0.2 pg/mL 0.0-4.2 [facility] Comment on above: Performed at: [employer] [address] [id number] Director: Theron Roblero PhD, Phone: [phone] at: [facility] [id number] Director: Katelynn Macdonald MD, Phone: [phone] No Panel Informationon 11-28 Dehydroepiandrosterone Sulfate 40.8 ug/dL Abnormal 57.3-279.2 [facility] Sex Hormone Binding Globulin 60.9 nmol/L 24.6-122.0 [facility] Comment on above: Performed at: [employer] [id number] Director: Theron Roblero PhD, Phone: [phone] Testosterone Level <3 ng/dL Abnormal 8-60 [facility] Activated partial thrombopla stin time (aPTT) in platelet poor plasma by coagulation aon 10-25-2023 aPTT Coag (PPP) [Time] 29.5 s 22.3-36.2 [facility] Basophils Auto (Bld) [#/Vol] on 10-25-2023 Basophils (Bld) [#/Vol] 0.1 10 3/uL 0.0-0.1 [facility] Basophils/100 WBC Auto (Bld) on 10-25-2023 Basophils/100 WBC (Bld) 1.1 % 0.2-2.0 F [facility] Eosinophils/100 WBC Auto (Bl d)on 10-25-2023 Eosinophils/100 WBC (Bld) 2.2 % 0.9-7.0 [facility] Erythrocyte distribution wid th Auto (RBC) [Ratio]on 10-25-2023 Erythrocyte distribution width (RBC) [Ratio] 14.5 % 11.0-15.0 [facility] Glucose mean value [Mass/vol ume] in Blood Estimated from glycated hemoglobinon 10-25-2023 Average glucose Estimated from glycated hemoglobin (Bld) [Mass/Vol] 88 mg/dL [facility] Hematocrit Auto (Bld) [Volum e fraction]on 10-25-2023 Hematocrit (Bld) [Volume fraction] 39.8 % 36.0-48.0 [facility] Hemoglobin [Mass/volume] in Bloodon 10-25-2023 Hemoglobin (Bld) [Mass/Vol] 12.6 g/dL 12.0-16.0 [facility] INR in Platelet poor plasma by Coagulation assayon 10-25-2023 INR Coag (PPP) [Relative time] 0.99 {INR} [facility] Comment on above: DESIRED INR:2.0-3.0 CONDITIONS NOT LISTED BELOW2.5-3.5 FOR PROSTHETIC HEART VALVE REPLACEMENT2.5-3.5 RECURRENT THROMBOSIS Laboratory - Chemistry and C hemistry - challengeon 10-25-2023 Free T4 [Mass/Vol] 1.24 ng/dL 0.76-1.46 [facility] TSH Qn 1.497 m[IU]/L 0.358-3.74 0 [facility] Laboratory - Hematology and Cell countson 10-25-2023 HbA1c (Bld) [Mass fraction] 4.7 % 4.5-6.2 [facility] Comment on above: ADA RECOMMENDED LIMI T 4.0 - 6.0ADA THERAPEUTIC TARGET < 7.0ACTION SUGGESTED> 7.0 Immature granulocytes/100 WBC (Bld) 0.2 % 0.0-0.5 [facility] Leukocytes [#/volume] correc mini for nucleated erythrocytes in Blood by Automated counon 10-25-2023 WBC corrected for nucl RBC Auto (Bld) [#/Vol] 5.5 10 3/uL 4.0-11.0 [facility] Lymphocytes Auto (Bld) [#/Vo l]on 10-25-2023 Lymphocytes (Bld) [#/Vol] 1.8 10 3/uL 1.2-3.8 [facility] Lymphocytes/100 WBC Auto (Bl d)on 10-25-2023 Lymphocytes/100 WBC (Bld) 33.3 % 20.5-60.0 [facility] MCH Auto (RBC) [Entitic mass ]on 10-25-2023 MCH (RBC) [Entitic mass] 27.9 pg 26.7-34.0 [facility] MCHC Auto (RBC) [Mass/Vol]on 10-25-2023 MCHC (RBC) [Mass/Vol] 31.7 g/dL 29.9-35.2 [facility] MCV Auto (RBC) [Entitic vol] on 10-25-2023 MCV (RBC) [Entitic vol] 88.1 fL 81.0-99.0 [facility] Monocytes Auto (Bld) [#/Vol] on 10-25-2023 Monocytes (Bld) [#/Vol] 0.3 10 3/uL 0.3-0.8 [facility] Monocytes/100 WBC Auto (Bld) on 10-25-2023 Monocytes/100 WBC (Bld) 5.4 % 1.7-12.0 [facility] Neutrophils Auto (Bld) [#/Vo l]on 10-25-2023 Neutrophils (Bld) [#/Vol] 3.2 10 3/uL 1.4-6.5 [facility] Neutrophils/100 WBC Auto (Bl d)on 10-25-2023 Neutrophils/100 WBC (Bld) 57.8 % 43.0-75.0 [facility] No Panel Informationon 10-24 Eosinophils # (Auto) 0.1 10 3/uL 0.0-0.7 [facility] Human Chorionic Gonadotropin, Quant <1 mIU/mL [facility] Comment on above: 5-50 0.2-1 UDRF70-26 0 1-2 YALPU790-3,000 2-3 WVFBX372-73,000 3-4 WEEKS1,000-50,000 4-5 WEEKS10,000-100,000 5-6 WEEKS15,000-200,000 6-8 WEEKS10,000-100,000 2-3 MONTHS Immature Granulocyte # (Auto) 0.01 10 3/uL 0.00-0.03 [facility] Platelet mean volume Auto (B ld) [Entitic vol]on 10-25-2023 Platelet mean volume (Bld) [Entitic vol] 9.7 fL 9.5-13.5 [facility] Platelets Auto (Bld) [#/Vol] on 10-25-2023 Platelets (Bld) [#/Vol] 300 10 3/uL 150-450 [facility] Prothrombin time (PT)on 10-02 PT Coag (PPP) [Time] 10.5 s 9.0-11.6 [facility] RBC Auto (Bld) [#/Vol]on RBC (Bld) [#/Vol] 4.52 10 6/uL 4.20-5.[address] [facility] Coding Summaryon 09-01-2023 Coding Summary HTMLBase 64 JklfmessJIf4iVe+PGhlYWQ+ YX3TFZMpH24pcZZafA8jL2SL TElOSywgQVBQTElOSyIgbmFt PP0ywVYnPATw IC8+MC6cNAFaJeoxeALkv7P3 jNN6F28jbg4zJXomlBI2SZHl PtRhybyyj5bhoRa6HAcwDgot OyBt MBVwuX10GGH6oR52Ux04gTZb gRRrr6clwHv1VbYdOWIeYLC2 uJawGRnov8GwGVMaY15qxGFe c2U6 SDApzGwbzBHgPbOogCN7vR9p GYmzwbidw7mkyyoxRik3lf31 fXHxt9S0nEI2D1LyloK9EPHs bGQg UquntWRAlR9ejskif3skvomk GlYdHCBvBZn2ZEl6TUKtkUze WeRuTX19INY8PESrbdDtH9Wn LWFs yYswWfU3l0B3Wp1QQ4DPLent H1OHGKOTZTjpaDU+ZK50cq88 I7UiBozbKyk2MWVeRTF5oOZ1 aD0n AUHtYZahn3N5aNE8P1OzpdYi eb0wz8yiXKYjHPnhJ49osBHk g1F5RVAajRF1MJJlyJyaRcXw aG93 Oyc+RELyzJzry1MdEcggc4lp o6hwsEs4PrzyHFXwsaKwgCyg ZJB0x6TtBe5rEJQvvCV1oAF1 aD0i ZbIvHuB4MKitY787XxTwpGId VeyuP60xO4YlfZV+PHRyPjx0 QMDdpAmaWC0wW6ZjMBFucgxg bGVm hPcvEW1nLEUzvzvlNYSldE4q UNWyO7x1MaDiDaP9FNfdS5Os SIGnpyjuWw80sL4xFpEhRqG8 MGlu J2XpudV0PXXoxTVuPQgmKRU2 J19qj5R0AMMsKWJcFPJ4dUZ6 fU8pqRwpfisnkUPnbWmlqaDt dGlj HXxcJGzdS998WTJydCroVnPd ZGluZyBEYXRlOiAgMDUvMzEv MjAyNDwvdGQ+OTZjLSP2zRbg PSAn fYZuZOcpTj0euDfupLdqBW5u OTJgcntsWNPgnR9mFIYmoBUt sZuiKS9nETOijqxjn870TyOj MHB0 SIEwnCEtS6MwjU7iYhDmWBUr KLWzU5CkuWOaSQvjG565DIok NsH6KKDnoyKqR7VmSHGebElc OiB0 l9K0Bk1Sm7NcgwpnP0RhuZLd LkAyNezwEEh9R1ObYcjavBQ+ UG16FIUkUS89ZHh3CMQ4tReg PSdi YLWmX2QfrY7dIoKoHIPdOOLx Oyc+PHRhYmxlIHdpZHRoPScx WLCdXqIihXvwTX1cDs5yNZTd LWNv lSklyAKgAfSbk2cyNKTvKUtt ZP1jcLjlZ4BycSQ8FLUxe1n3 Ea56Z19aK1CvaDG+PGNvbCB3 aWR0 fJ3tAiKaSjG7MKjsK736RbRl lLIwBjunf5muc4hxeRb7PcU3 DJBzqtArjHacFUN5m2OhDe51 Y29s IHdpZHRoPSIxNSUiIHZhbGln bq4mhN9xSk1+GNEicUO5sRM1 jV4kXgYuEzC7TAmvH688GfWd cCIv Qtghl9aiy0cliJv8NcEyACNn wjFodKhcMQD3q5SbHv65P1Cx jKvle2LgDkq8vz81sMYpo2M3 bGU9 Z1OnRROjnqudfJOqyPueDX1t FNDnfyhqTIIucY8tHFMgM6q9 OkCwIvJ0BRjlK5WxagZ1KFJf bGQg KLOznYGEvM9qfmslz2lythwa OxSqQHHzEIz3BYk6LSQarUtm QjXiOXX0BdN4HVM2vZBfjR2s bGln hpuruD7uIqm+TDE4tYGkrCTX MV1pMgjgaOK+KZIuTCI3nCgr MLglHRXpmQ2eCSRdH0m9TsFw LjA1 HYbwH6JydqG7ORMctLXtWTUd qCABzT8tpoymk4kjicfeAwVa QOXwOJc3EEc8ANRpxZelSxNx ZWZ0 UrJ4TUS7sZZalP1nlOmasmdh lO8yWlm+QxfjnWrnYGD7RFp5 M9SuDgs2RVStlMuvKQ4taRBo ZGlu Qp2lnWsxtLmdYV1sELMlsnca j976VnGvg7xjSCAuuGYbLEai KYQ0Z75bp7O8DKWiEMPbSBO6 dGV4 iV8xxSqgihhmoXFwnCsruuDh jEftUAvcKYrmV472XVZwsNix JsNbQVw9S5PgDia8NVFcgOll ZT0n jXGvDRomBa6kmRhtiZxmLN0g GYEltzpwc373ZwIob1voHMCm rLCePBstKFI2E03is2U2HLAg MDAw VVQ0oUX2qS5rlOekntvwuJWu bShdseFytJmiITadIDhmB422 ASEppKcrKiKjoCh1P4YgHmp6 ZCBz qIziFF1jcIPxEOulDa6dmXwx nAeuWK8tEAFswitbt445KtDq d0rzKXLypWUkJEcrDNP2Y60q b3I6 LXFkNJTyJRB5dTB3dS8ugSyr bjogbGVmdDsgdmVydGljYWwt WOwyC297OJMerLwmNlYywAbe bnQg HUhiHKd5E1CeXgiukTJ+PC90 YORcJY99cKDkgINde3voeMq0 IdRyGSNhFDA2kTkyAEwum8Qw ZXIt Y56yyUMbl3N1SKOpnKlkyWWf OgYhhGX9uY4tWUbivztcs1ig pzavLwtgg6rkoa71nI08V76x IHdp UFNgCOFvHEKsRFCjdSszyt3t nU5mVj2+HRXhaTH4yDW5aR4y UPTtAsA1AIeqI120UvAyfNCy Pjxj i7wnq7ainGm5LmR2FQOpmzIq oGiuGNL6v0MrOl11V46rOYos TAAsTDDtAKWfPGJfbUydix3k dG9w Ii8+JYTqpEU4cMB0cH8fTpSf TiH9UGvoD412NkIobLDiWvzg M60mF8FjsLY+BGKmUye3RBUj dHls MH4ozYYkFDwnTk8nIZN1YnBb UaWiWZyiE5EcFNCjirasfiqy kFH8SSEyJKZgtA89So5gbZhk MTBw xPTWqZ7boqhwn8tmkrdpZgYp SPJrQPw3NCb2AMPizOftHeJp TTI5XlW7BMZ8qPVfqC7dpPxz bjog dB9nX4FyPQFjezolUm42pE0a AwWjVvW0JKqhJux+T78ZA9sE LCBBTUFOREEgREFXTjwvdGQ+ PHRk LOQ3fAjaZWzdPUBxlH9hVMRh Z3c6RiFsOtB0SXufE6LtZBZk ugvdZb76cO6bVaQnRtL7IYhv O2Zv hnL5KVCbcONrKAfuJSC5A75g k5U7KJFiSWQtWQH5hJM6hA2v bGlnbjogbGVmdDsgdmVydGlj YWwt ONooD477TSIuvFpeKtY9SzHw UaK5JGJ7Y4LuDsa1GPPbzNzb CS9vuHVfVRcnEy4rtKnynCpy MC4w WLOqixjuJFRepX4qQMXgjWVq cMkxSB2mTVUbvmkcs345ZyHz QFH7MJDxxZGaU8CvxD4mQsPj MDAw WJLiS9ZmlGBwBFouR580HJiq WdL2SKSzmjMbV5VuKALvxPnp NdX3q1M8Mu14LRIWIDLnsafs dGQ+ UQYqFAD0hEfuPZkaFBEkeW4p UIWsE2y3NbIhCxR0JYwsC4Ou IWMingpoBe23wA5qTsHhMqO5 MGlu I1VkthL9QUHdaHTdAScbSAA9 U54xa2O5EMBxUEIjEVI5kBO9 wT0hbLljghkxeQQbnFehkhRd dGlj USejYStpM604GKNrtUczYiHK TUFMRTwvdGQ+WNSfTKR5aQkt RPygGAAiwJ8rEYDzC6a0TdJz LjA1 FXbaS8WaPVZgqvcxQx22gT8g GzZjIiO2KGjxY4WbjvU0WNOy uFCuCNswOVA6B43ez6U6MJWu MDAw PSW8jTC8hO0zcZsvykgimFMp tPhyysWwsAffRBnvYGkaJ638 NTFuhSxjRh2FBD31HG75T8Ok Pjwv dGFibGU+PHRhYmxlIHdpZHRo PSkpUQBsKaSeiLykQI7xUn1g IDSoWYNudRzytROpAuAdg6to YXBz UEnmQK4lqJrhD6XhvLX3MVDr s0e3Gh70P53kG8MslFE+PGNv tCM9yFS9uP4pTrEkLsJ1TCbb Z249 UgPrsTXoNhfsz7eqf5imdEv1 SnHgWAAgrqHhtFhvVHD1q3Cj Iu44I09vZHdqXKWlYVUiFIQq IHZh eMzwaw0naQ6fJd4+PGNvbCB3 lAQ3eD2aOaThMrI1LIicK296 WcFdrLVaFflgI85dJ3TliFP+ PHRy Zqi1WHImvZvzSL5yoEHzMJsf Wm1kLFI0IhJcUqHuPRfyA6Ai ROQekcfiabqvzKW5MKOzFCRh aW47 Qm2fiIonGp7aSXSbLSS4FLUe cETpC8YlcW8dSfJyZHLgASUo U2HaxTQiHDarL694ZXllPmW5 IHZl itXaO2XpDHUthZrqRpT4j1W1 Ul7MgWrhuOCbKW6tYzQfGDv2 S3WgDmr3BJCidCptUC0esSCg ZGlu Wn8ygEbcmAviXX4oBBNvngku s955JlOae9nfIBCliLChFTjv NWA3X08qf0K1YOStMJKzZOJ8 dGV4 wN2bjOxrcinjjRIcmTshdmNk rIhqWBbqZTcbM569MIJauUbw KxACEmm6M2IsXbr5GFGenVzs ZT0n pRZtGThpKy3mxAsuxGzbTP9o SMJwogoxo382TkQup0haSTHt nTOqVNltNCX8X52le6I0NPLx MDAw YUP2iLC8nS7ehPohiwjnlWJs hIvheiDswIkvOAmpBYaiV753 BYGngKllWu6WGot2O8LqIwi1 ZCBz bAayLP3joZTmSFysQm0vqJoo tFucIG8pDAIhqcsxq801CtVc o5ofQYPtvCOgILlbXJT4X41t b3I6 LMHuNVWxGRX2xVH3tH9mzLys bjogbGVmdDsgdmVydGljYWwt PAvnR472WWYjfWhmUlMgtPDz Ojwv dGQ+YS08el31Q8LfLkjiXdw6 PGKlRMK9tMQ0vW9bXNSxJBcv v0P1zIX3H4VqtmLafw1ww5on YXBz ZTo (more content not included)... Normal [facility] ED Clinical Summaryon 2023 ED Clinical Summary [facility] ? Urgent Care [address] [place], [place] [id number] Clinical Summary PERSON INFORMATION Name: KARUNA DUMONT Age: 42 Years Sex: FEMALE : 1980 MRN: Acct#: Visit Reason: Skin problem; RASH ON ARMS Arrival: 08/23/2023 14:45:23 Discharge: 08/23/2023 15:20:00 LOS: 000 00:35 Check In: 08/23/2023 14:45:23 Checkout: 08/23/2023 15:20:00 Address: [address] [facility] [address] PCP: Johnathon Winter MD PROVIDER INFORMATION Provider Role Assigned Unassigned Puhong Oseguera TRANSLATIONAL SPECIALIST Nurse 08/23/2023 14:46:59 Yissel Resendez PA-C [...] Follow-Up: With: Address: When: Johnathon Winter MD [address] [place] [id number] DIAGNOSIS: 1:Rash and nonspecific skin eruption; 2:Elevated blood pressure reading without diagnosis of hypertension Patient Understands: Comment: Normal [facility] ED Patient Summaryon 024 ED Patient Summary [facility] ? Urgent Care [address] [place], [place] [id number] PATIENT DISCHARGE INSTRUCTIONS Patient Information Name: KARUNA DUMONT Age: 42 Years Date of : 1980 Reason For Visit: Skin problem; RASH ON ARMS Arrival Time: 08/23/2023 14:45:23 Primary Care Physician: Johnathon Winter MD Attending Physician: Yissel Resendez PA-C Comment: Patient Education With: Address: When: Johnathon Winter MD [address] [place] [address] Rash, Adult A rash is a [...] with your condition: Medicine Take or apply jtri-ccv-kbivisi and prescription medicines only as told by [...] a bath with: ? Epsom salts. Follow cupola tapper helper instructions on the packaging. You can get these at your local pharmacy or grocery store. ? Baking soda. Pour a small amount into the bath as told by your health care provider. ? Colloidal oatmeal. Follow cupola tapper helper instructions on the packaging. You can get this at your local pharmacy or grocery store. ? Try applying baking soda paste to your skin. Stir water into baking soda until it reaches a paste-like consistency. ? Try applying calamine lotion. This is an dkwy-hud-wyxlari lotion that helps to relieve itchiness. ? [...] rash from spreading. ? Take or apply nuno-rsi-zpbvsgh and prescription medicines only as told by your health care provider. ? Contact a health care provider if you have new or worsening symptoms. ? Keep all follow-up visits as told by yo (more content not included)... [facility] 05-23-2023 L Specimen: [id number] Received: 05/24/23 Status: NATHAN Burnsroberto Num: [id number] Spec Type: Surgical Subm Dr: Tee Peterson MD Tissues: A BREAST CORE NO CALCS (LT BREAST) Procedures: HE/4, Gross/Micro L4, AE1-AE3/2 Age/ Patient Sex Location Account Attending Physician Karuna Dumont 42/F [facility] [id number] Tee Peterson MD SPEC NUM: [id number] RECD: 05/24/23 STATUS: NATHAN GUZMÁN NUM: [id number] GENEVA: 05/23/23- DR: Tee Peterson MD ENTERED: 05/24/[address] [facility] [address]: Bert,Lab SPEC TYPE: Surgical DEPT: ROLDAN [...] Time: 0.10 Formalin Fixation Time: 28.50 Specimen: [id number] Received: 05/24/23 Status: NATHAN Guzmán Num: [id number] Spec Type: Surgical Subm Dr: Tee Peterson MD Tissues: A BREAST CORE NO CALCS (LT BREAST) Procedures: HE/4, Gross/Micro L4, AE1-AE3/2 Patient: Karuna Dumont [id number] (Continued) Specimen: [id number] Received: 05/24/23 (Continued) Signed (signature on file) Tootie Jordan MD 05/31/232105 Specimen: [id number] Received: 05/24/23 Status: NATHAN Guzmán Num: [id number] Spec Type: Surgical Subm Dr: Tee Peterson MD Tissues: A BREAST CORE NO CALCS (LT BREAST) Procedures: HE/4, Gross/Micro L4, AE1-AE3/2 Patient: Karuna Dumont [id number] (Continued) Specimen: [id number] Received: 05/24/23 (Continued) CPT Codes 16658 Specimen: [id number] Received: 05/24/23 Status: NATHAN Sara Num: [id number] Spec Type: Surgical Subm Dr: Tee Peterson MD Tissues: A BREAST CORE NO CALCS (LT BREAST) Procedures: MELANIE/Shanique, Gross/Micro L4, AE1-AE3/2 Patient: Karuna Dumont [id number] (Continued) Signed (signature on file) Tootie Jordan MD 05/31/232105 Normal [facility] MR LUMBAR SPINE WO CONTon MR LUMBAR [...] Perry on 05/23/2023 12:47 PM Normal [facility] Free testosterone measuremen t by LC-MS/MSon 05-10-2023 Testosterone Free [Mass/Vol] 0.6 pg/mL 0.0-4.2 [facility] Comment on above: Performed at: [facility] [employer] [id number] Director: Theron Roblero PhD, Phone: [phone] at: [facility] [employer] [id number] Director: Katelynn Macdonald MD, Phone: [phone] No Panel Informationon 05-10 C-Peptide 2.8 ng/mL 1.1-4.4 [facility] Comment on above: C-Peptide reference interval is for fasting patients.Performed at: [facility] [employer] [id number] Director: Theron Roblero PhD, Phone: [phone] Dehydroepiandrosterone Sulfate 194.0 ug/dL 57.3-279.2 [facility] Free Cortisol, Dialysis, LCMS 0.787 ug/dL . [facility] Comment on above: These tests were dev eloped and their performancecharacteristics determined by [employer]. They have not beencleared or approved by the Food and Drug Administration.Reference Range:8 AM 0.10 - 1.204 PM 0.042 - 0.872Performed at: [facility] [employer] [address] [id number] Director: Kal Archibald MD, Phone: [phone] Reverse Triiodothyronine (T3) 23.0 ng/dL 9.2-24.1 [facility] Comment on above: This test was develo ped and its performance characteristicsdetermined by [facility]. It has not been cleared orapproved by the Food and Drug Administration.Performed at: [address] [id number] Director: Katelynn Macdonald MD, Phone: [phone] Sex Hormone Binding Globulin 49.1 nmol/L 24.6-122.0 [facility] Comment on above: Performed at: [address] [id number] Director: Theron Roblero PhD, Phone: [phone] Testosterone Level 22 ng/dL 8-60 [facility] Plasma serotonin measurement (mass/volume)on 05-10-2023 Serotonin (P) [Mass/Vol] 105 ng/mL 31 [facility] Comment on above: This test was develo ped and its performance characteristicsdetermined by [facility]. It has not been cleared orapproved by the Food and Drug Administration.Performed at: [address] [id number] Director: Katelynn Macdonald MD, Phone: [phone] Serum estrone measurementon 05-10-2023 E1 [Mass/Vol] 65 pg/mL [facility] Comment on above: Range Adult (Premeno pausal) 27 - 231 Menstrual Cycle (1-10 days) 19 - 149 Menstrual Cycle (11-20 days) 32 - 176 Menstrual Cycle (21-30 days) 37 - 200Performed at: [address] [id number] Director: Katelynn Macdonald MD, Phone: [phone] Serum or plasma estradiol (E 2) measurement (mass/volume)on 05-10-2023 E2 [Mass/Vol] 98.9 pg/mL . [facility] Comment on above: Adult Female Range F ollicular phase 12.5 - 166.0 Ovulation phase 85.8 - 498.0 Luteal phase 43.8 - 211.0 Postmenopausal <6.0 - 54.7 1st trimester 215.0 - >4300.0Roche ECLIA methodology Serum or plasma insulin mariam urement (units/volume)on 05-10-2023 Insulin Qn 7.0 u[iU]/mL 2.6-24.9 [facility] Comment on above: Performed at: [facility] [id number] [place], [place] [id number] Director: Theron Roblero PhD, Phone: [phone] Serum or plasma progesterone measurement (mass/volume)on 05-10-2023 Progesterone [Mass/Vol] 0.1 ng/mL . [facility] Comment on above: Follicular phase 0.1 - 0.9 Luteal phase 1.8 - 23.9 Ovulation phase 0.1 - 12.0 First trimester 11.0 - 44.3 Second trimester 25.4 - 83.3 Third trimester 58.7 - 214.0 Postmenopausal 0.0 - 0.1Performed at: [facility] [place], [place] [id number] Director: Theron Roblero PhD, Phone: [phone] Serum or plasma thyroperoxid ase antibody assay (units/volume)on 05-10-2023 TPO Ab Qn 11 [IU]/mL 0-34 [facility] Thyroglobulin [Mass/volume] in Serum or Plasmaon 05-10-2023 Thyroglobulin [Mass/Vol] <1.0 [IU]/mL 0.0-0.9 [facility] Comment on above: Thyroglobulin Antibo dy measured by [facility]SpaceMethodologyPerformed at: [facility] [place], [place] [id number] Director: Theron Roblero PhD, Phone: [phone] XR LUMBAR SPINE AP, LATERAL, FLEXION AND [...] Perry on 05/05/2023 1:28 PM Normal [facility] Coding Summaryon 03-20-2023 Coding Summary HTMLBase 64 UaawyzpeUXx7mHx+PGhlYWQ+ [id number] TElOSywgQVBQTElOSyIgbmFt ST2ctNWqKAKx IC8+OD8xEWRkMemhaJGcd2X6 vGY1A91rot5gSUdtzZE6JUHy AaXsjbdbk4eubRy1KXjpRdld OyBt LFYxxA26XVX1pB17Tt30jWWv zILdi5btzOs7FzFbRDYcSAS5 fRasJZpto9CtJWIlT41gyZPp c2U6 WXMaoQjnaSYnVxDykEI6kK1n ADukdedft9vyhmotAxe6it31 xSAcb6Y4gIA3G7RghkO8FQKt bGQg XbvmsKPVdX3kzjsqp0estkov ArLuXMUmRHb2BXn3CTHihQln ZsTyOQ56XOF4EKQpckIdR4Ty LWFs nNdmAyE0f5S3Xs8ZQ2RROhrd G0YSTXOFGHuluIV+QI92ci63 M7DqSbjkQls5DBWiEKU4qIT9 aD0n ZUGuUHmje0K5zTZ6C1MsikMn iw3ez8zmYULnUKzdI07iaQNm x7L2SIEleEY4FNGvuCdfWbOw aG93 Oyc+ZLCuhZrwl4OyRjliq9wk n0rfvOe1QhxhCBTqysFibEyt UGS9j6LnVq8zCUEpoTL9cSH5 aD0i FsNtLcR6OIjyQ349OxJojCSy HglvX34iV5SakXL+PHRyPjx0 BGFdvUlnFK2lF7IeBVCcmhfo bGVm lMblVX0uVUFdgqpvLGWuyB4w RCGpC4a6VbAdYwA8ZQguS5Ca KLWhjoojNm53gY8mCwPyTeK9 MGlu Q7HxcbF6WKKhrTScPMxyYQM1 G93zn6C1CJYcDLFlUUU2oFQ5 eZ4rcKcutkskiXUjrXxqmlMt dGlj XXgzEFksO881OTKbfFiwVcOn ZGluZyBEYXRlOiAgMTIvMTgv MjAyMzwvdGQ+QEPmUVA2tJxf PSAn xZUvAVvpRr0eiQxbwZcgHT8r GDUcwnvqDLMxvO5eZLEkzXDu iOzjRU7jLODiuablz265EvXd MHB0 MKCrxFUbE5VgrF1lUgYqGQTh ZVVuG6XqoAUkMYhjK353FHao XgI1JMIwfqOtO3RbRMYnvIeb OiB0 v7N1Dk0Vq1WplzzgB3MlcNSy EgKdHreyAVs6C1VdEcjyrJQ+ PS29JICkTW84HKa7JSV0oHap PSdi LWApO4KfyA5nSzXlLJMmMEWa Oyc+PHRhYmxlIHdpZHRoPScx PIIhAtHajGybGE6zTt5jCZWy LWNv oOsoeTFrImZmw1qmBGLxOSig JK5cfCpxP5PsuMW8RNQod9w6 Eb55I36tI4VuzSP+PGNvbCB3 aWR0 rY4dGkWaCuL7RJcaB988XlAm rCHhLrxee2pbq4wcrAj8WsW0 XHNonfWrpZrhRKX7a6LbMv96 Y29s IHdpZHRoPSIxNSUiIHZhbGln ok9opE5jAv7+QICzpNR5rHP6 eH4aEmZeIeC6UIlaN352JzYi cCIv Vlcbi7hnx5nqzOq2NlIvOWCa qgOhjYqnNHS1k1EjNb19Y5Br dVjob5WzQdq3ub82nBExy7T1 bGU9 L7TgOFDvdrbiwUXkuCdgEV2t ZIDrgejtTZOvdJ1dCUAdU3r7 SrMiGuN7UBjhK7JuxtD6HTBk bGQg ZSWepXODxY5wlxdlc8dnjkcy KmHrCABcZDk0ROp6CNCkyErc PgCrJYI6WxS9OFP8rEZpuH3l bGln ywnlpC3fAes+BOR6oTTtpIGQ GH1fAcygmYL+DIRrHBM0iNhv LEulDNJpzZ3pPDJiO6w9IyJn LjA1 BAsdY3BonoH8KVPvsUTsBRPt nUDRyU3vkwewk3lhphfiNxJw ZBTmMIb6FNz4OLGihGviXkIl ZWZ0 SgL2DFJ1fRAucQ6efLlaecur jB6oAyj+UtmmoOshXDL0ESe5 X1DiJox0YJGvtZacEC0tqGAp ZGlu Mj3ndVnwfEwyJQ1aFBFqmqdi w668OfMtn6unWQDsmTVeUWsh TIF6M92nw8Y3UVJxNOHgDVE1 dGV4 aQ9txOxfvkucxHNpoNyxnkHj dRqiWWcqUKymM667IXMsgEzq TwNmUFs4L3VzWtk6LURixDnb ZT0n aLLeJKjxQt0nxDzhnUruLT4v VYDzjmenj038JfEwe2bmXYXu bLTpQUffRIK0V21wa6S5AOCk MDAw ZNV4dNT9lL2ydZfjapdgvBEh sDfivaGylRwzLYloMKjqZ108 PBUzePogFhVbwNe6H3MkLlw5 ZCBz lLuqOQ1xuHRwJWniEx2aiAxn eBwdGC1hBPMylkkip842OqMh b6ciYPQdtTOkXLriJUA2R01i b3I6 FYNmVPWoTMP9pMY7nV1nwOci bjogbGVmdDsgdmVydGljYWwt GBarT407BYJbeIhtTeYlcOav bnQg GDsbXCk0E3KyHufjsKA+PC90 UGStXS11aCLfrBVai6yviZt6 RrHfQBHeUIQ6lTtpAWkxp3Zd ZXIt R03sbBPmq2J2ECJtzNpehMGd XsVbeJB4vB2oTIocnlvns0lv qymnTaaql1qvzo48tK69Y39f IHdp DHIvOQQwTDJaRGKgsSnosv0e oS5zMx1+ERGviJF8lCV0xY6i ESOfEsV6FXwzV687RdXvfTYv Pjxj f7nnl2utnJc1OyU9OMOgfpQv sRqpIFX3k7FhLk65I10jFEtu CLDcYXZaHFXpMSUszMqlam3p dG9w Ii8+QRLbhNR6pOK2cP4nTuTh AzW6ELhrA363GzOuqQCfYpei D04jP5McyXP+HLPzBjj5NHBy dHls RM1zdSCnIXgjSx7wXGP5WgAh TcTpJMfvP4JnYVYcadnwjegh oWU5JGMpNBCptM09Vf2jvMck MTBw rJSCsY6uycnkb6cefgevNtTk UMSfWHe9HKq0JMJpnKsvYfQd JUW6MhI7DWU4gIIvlM8leKwv bjog xY5rY5VdUQIciczhTr71bM1v ZuErJtX1BTlgEkt+N83BX3uV LCBBTUFOREEgREFXTjwvdGQ+ PHRk OLO1xJhaDWokWCFvgM8dVOWf Z8h9JaVeTsO8ZHruO2LiSHYv lmxlYx16bR6uSsUtImP4MFac O2Zv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 Performed By: #### U AX, UMICAO ####[address] [address] Lab Director: Estevan Corcoran MD Glucose Ql (U) Negative Normal NEG [facility] Comment on above: Performed By: #### U AX, UMICAO ####[address] [address] Lab Director: Estevan Corcoran MD Ketones Ql (U) Negative Normal NEG [facility] Comment on above: Performed By: #### U AX, UMICAO ####[address] [address] Lab Director: Estevan Corcoran MD Leukocyte esterase Test strip Ql (U) Negative Normal NEG [facility] Comment on above: Performed By: #### U AX, UMICAO ####[address] [address] Lab Director: Estevan Corcoran MD Nitrite,Ur Negative Normal NEG [facility] Comment on above: Performed By: #### U AX, UMICAO ####[place] [address] Lab Director: Estevan Corcoran MD PH,Ur 6.0 Normal 5.0-8.0 [facility] Comment on above: Performed By: #### U AX, UMICAO ####[place] [address] Lab Director: Estevan Corcoran MD Protein Ql (U) Negative Normal NEG [facility] Comment on above: Performed By: #### U AX, UMICAO ####[address] [address] Lab Director: Estevan Corcoran MD Spec. [place],Ur 1.108 High 1.005-1.03 0 [facility] Comment on above: Result Comment: POST IV CONTRAST Performed By: #### U AX, UMICAO ####[address] [address] Lab Director: Estevan Corcoran MD Urobilinogen,Ur Normal Normal NORM [facility] Comment on above: Performed By: #### U AX, UMICAO ####[address] [address] Lab Director: Estevan Corcoran MD Urinalysis with Reflex to Cu ltureon 01-03-2022 Bilirubin Urine Negative NEGATIVE [facility] Color, UA Yellow Yellow [facility] Glucose, Ur Negative NEGATIVE [facility] Interpretation and review of laboratory results Abnormal [facility] Ketones Ql (U) Negative NEGATIVE [facility] Leukocyte esterase Test strip Ql (U) Negative NEGATIVE [facility] Nitrite, Urine Negative NEGATIVE [facility] pH, UA 6.0 5 - 8 [facility] Protein, UA Negative NEGATIVE [facility] Specific [place], UA 1.108 High 1.005 - 1.03 [facility] Comment on above: POST IV CONTRAST Turbidity UA Cloudy Abnormal Clear [facility] Comment on above: FOUL ODOR Urine Hgb LARGE Abnormal NEGATIVE [facility] Urobilinogen, Urine Normal Normal [facility] Urinalysis,Microon 2 Bacteria MANY Abnormal NONE [facility] Comment on above: Performed By: #### U AX, UMICAO ####[address] [address] lab Director: Estevan Corcoran MD Epithelial cells LM Ql (Urine sed) TOO NUMEROUS TO COUNT Normal 0-5 [facility] Comment on above: Performed By: #### U AX, UMICAO ####[address] [id number] Lab Director: Estevan Corcoran MD Other Observations Utilizing a urinalys is as the only screening method to exclude a potential Abnormal NREQ [facility] Comment on above: Result Comment: urop athogen can be unreliable in many patient populations. Rapid screening tests are less sensitive than culture and if UTI is a clinical possibility, culture should be considered despite a negative urinalysis. Performed By: #### U AX, UMICAO ####[address] [address] Lab Director: Estevan Corcoran MD Urine RBC's 2 TO 5 Normal 0-2 [facility] Comment on above: Performed By: #### U AX UMICAO ####[id number] [place] [address] lab Director: Estevan Corcoran MD Urine WBC's 2 TO 5 Normal 0-5 [facility] Comment on above: Performed By: #### U AX UMICAO ####[id number] [place] [address] lab Director: Estevan Corcoran MD CT LUMBAR [...] leg pain. Follow-up MRI may be helpful. [facility] CONSOLIDATED EXAMINATION: CT OF [...] SOFT TISSUES/RETROPERITONEUM: No paraspinal mass is seen. [facility] RIS CONSOLIDATED Boyd Beatyt MD - 08/19/2021 EXAMINATION: CT OF THE [...] leg pain. Follow-up MRI may be helpful. [employer] Phone: Radiology Study observation (narrative) Sandy paola Work Phone: CT LUMBAR SPINE WO CONTRASTO rdered By: Boyd Beatty on 08-19-2021 [employer] Work Phone: Vital Signs Date Time Vital Sign Value Performing Clinician Elena melton 06-12-2023 10:05-0400 Body height 165.1 cm Rohit Metzger MD Work Phone: [employer] 06-12-2023 10:05-0400 Body mass index (BMI) [Ratio] 38.94 kg/m2 Rohit Metzger MD Work Phone: [employer] 06-12-2023 10:05-0400 Body weight 106.14 kg Rohit Metzger MD Work Phone: [employer] 05-16-2023 13:48-0500 Body height 165.1 cm Rohit Metzger MD Work Phone: [employer] 05-16-2023 13:48-0500 Body mass index (BMI) [Ratio] 38.94 kg/m2 Rohit Metzger MD Work Phone: [employer] 05-16-2023 13:48-0500 Body weight 106.14 kg Rohit Metzger MD Work Phone: [employer] 01-02-2023 10:00-0400 Body height 162.56 cm Johnathon Winter Other [employer] Other 01-02-2023 10:00-0400 Body mass index (BMI) [Ratio] 42.91 kg/m2 Johnathon Winter Other [employer] Other 01-02-2023 10:00-0400 Body weight 113.4 kg Johnathon Winter Other [employer] Other 01-02-2023 10:00-0400 Diastolic blood pressure 82 mm[Hg] Johnathon Winter Other [employer] Other 01-02-2023 10:00-0400 Systolic blood pressure 126 mm[Hg] Johnathon Winter Other [employer] Other 2022 11:00-0400 Body height 162.56 cm Johnathon Winter Other [employer] Other 2022 11:00-0400 Body mass index (BMI) [Ratio] 44.56 kg/m2 Johnathon Winter Other [employer] Other 2022 11:00-0400 Body weight 117.75 kg Johnathon Winter Other [employer] Other 2022 11:00-0400 Diastolic blood pressure 101 mm[Hg] Johnathon Winter Other [employer] Other 2022 11:00-0400 SaO2% (BldA) [Mass fraction] 100 % Johnathon Winter Other [employer] Other 2022 11:00-0400 Systolic blood pressure 138 mm[Hg] Johnathon Winter Other [employer] Other 10-11-2022 18:45-0400 Body height 165.1 cm Roxie Garcia MD Work Phone: [employer] 10-11-2022 18:45-0400 Body mass index (BMI) [Ratio] 43.93 kg/m2 Roxie Garcia MD Work Phone: [employer] 10-11-2022 18:45-0400 Body temperature 99 [degF] Roxie Garcia MD Work Phone: [facility] [employer] [facility] [employer] 10-11-2022 18:45-0400 Body weight 119.75 kg Roxie Garcia MD Work Phone: [facility] [employer] 10-11-2022 18:45-0400 Diastolic blood pressure 108 mm[Hg] Roxie Garcia MD Work Phone: [facility] 10-11-2022 18:45-0400 Heart rate 87 /min Roxie Garcia MD Work Phone: [facility] [employer] 10-11-2022 18:45-0400 Respiratory rate 16 /min Roxie Garcia MD Work Phone: [facility] [employer] 10-11-2022 18:45-0400 SaO2% (BldA) [Mass fraction] 98 % Roxie Garcia MD Work Phone: [facility] 10-11-2022 18:45-0400 Systolic blood pressure 160 mm[Hg] Roxie Garcia MD Work Phone: [facility] [employer] 01-03-2022 13:54-0400 Diastolic blood pressure 95 mm[Hg] Teo Thomas DO [employer] [facility] [employer] 01-03-2022 13:54-0400 Heart rate 61 /min Teo Thomas DO [email or web address] [facility] [employer] 01-03-2022 13:54-0400 SaO2% (BldA) [Mass fraction] 100 % Teo Thomas DO [employer] [facility] [employer] 01-03-2022 13:54-0400 Systolic blood pressure 142 mm[Hg] Teo Thomas DO [employer] [facility] [employer] 01-03-2022 11:46-0400 Body height 165.1 cm Teo Thomas DO [employer] 01-03-2022 11:46-0400 Body mass index (BMI) [Ratio] 44.1 kg/m2 Teo Thomas DO [employer] [facility] [employer] 01-03-2022 11:46-0400 Body temperature 97.7 [degF] Teo Thomas DO [email or web address] [facility] [employer] 10-03-2022 11:46-0400 Body weight 120.2 kg Teo Thomas DO GIANA PEREZ [facility] [employer] 01-03-2022 11:46-0400 Respiratory rate 16 /min Teo Thomas DO GIANA [facility] 08-19-2021 18:03-0400 Diastolic blood pressure 98 mm[Hg] Radha Sanders MD Work Phone: [facility] [employer] 08-19-2021 18:03-0400 Heart rate 92 /min Radha Sanders MD Work Phone: [facility] [employer] 08-19-2021 18:03-0400 Respiratory rate 16 /min Radha Sanders MD Work Phone: [facility] 08-19-2021 18:03-0400 SaO2% (BldA) [Mass fraction] 96 % Radha Sanders MD Work Phone: [facility] 08-19-2021 18:03-0400 Systolic blood pressure 145 mm[Hg] Radha Sanders MD Work Phone: [facility] [employer] 08-19-2021 16:28-0400 Body height 165.1 cm Radha Sanders MD Work Phone: [facility] 08-19-2021 16:28-0400 Body mass index (BMI) [Ratio] 45.76 kg/m2 Radha Sanders MD Work Phone: [facility] 08-19-2021 16:28-0400 Body temperature 98.6 [degF] Radha Sanders MD Work Phone: [facility] 08-19-2021 16:28-0400 Body weight 124.74 kg Radha Sanders MD Work Phone: [employer] Encounters Encounter Date Encounter Type Care Provider Facility Start: 12-06-2023 End: 12-06-2023 Departed Referred DO Sanjeev Lopez Work Phone: [facility] [place] Work Phone: Start: 12-06-2023 End: 12-06-2023 ambulatory SANJEEV LOPEZ Not Available Start: 11-29-2023 Non-patient / Non-visit DO Cor ey Jessica Work Phone: [facility] Work Phone: Start: 11-29-2023 End: 11-29-2023 ambulatory SANJEEV JESSICA Not Available Start: 11-22-2023 End: 11-22-2023 ambulatory [facility] Start: 11-20-2023 End: 11-20-2023 ambulatory Christiano Rivera MD Facility:[facility] Start: 11-13-2023 End: 11-13-2023 ambulatory Christiano Rivera MD Facility:[facility] Start: 10-25-2023 Non-patient / Non-visit DO Cor ey Jessica Work Phone: [facility] Work Phone: Start: 08-23-2023 End: 08-23-2023 ambulatory KELI Resendez Facility:[facility] Start: 08-02-2023 End: 08-02-2023 ambulatory ROBERT URRUTIA Not Available Start: 07-31-2023 End: 07-31-2023 ambulatory Bhavin Montgomery MD Facility:[facility] Start: 07-19-2023 End: 07-19-2023 ambulatory SANJEEV JESSICA Not Available Start: 07-17-2023 End: 07-17-2023 ambulatory Bhavin Montgomery MD Facility:[facility] Start: 06-26-2023 End: 06-26-2023 ambulatory Bhavin Montgomery MD Facility:[facility] Start: 06-15-2023 End: 06-15-2023 ambulatory SANJEEV JESSICA Not Available Start: 06-12-2023 End: 06-12-2023 ambulatory ROHIT SMITH [facility] Comment on above: Lumbar radiculopathy , chronic (Primary Dx); Herniated lumbar intervertebral disc Start: 06-12-2023 End: 06-12-2023 Office outpatient visit 10 minutes Rohit Smith MD Work Phone: [facility] Comment on above: 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) Start: 06-06-2023 ambulatory RENY NO [facility] Start: 05-24-2023 Orders Only Reny barlow MINING SPECULATOR-ROOMING HOUSE KEEPER Work Phone: [facility] Comment on above: Herniated lumbar int ervertebral disc (Primary Dx); Lumbar radiculopathy, chronic Start: 05-23-2023 End: 05-23-2023 ambulatory Tee Peterson [facility] Work Phone: Start: 05-23-2023 End: 05-23-2023 Departed Referred MD Tee Peterson Work Phone: [facility] Start: 05-19-2023 End: 05-19-2023 ambulatory [facility] Start: 05-16-2023 End: 05-16-2023 ambulatory ROHIT SMITH [facility] Start: 05-16-2023 End: 05-16-2023 Office outpatient new 30 minutes Rohit Smith MD Work Phone: [facility] [place] [facility] Comment on above: 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); Finger injury, right, initial encounter Start: 05-15-2023 Orders Only Reny Read yen MINING SPECULATOR-ROOMING HOUSE KEEPER Work Phone: [facility] Comment on above: Herniated lumbar int ervertebral disc (Primary Dx) Start: 05-10-2023 End: 05-10-2023 ambulatory Johnathon Winter Other [employer] Other Start: 05-10-2023 Encounter by kriss Winter [facility] Start: 05-10-2023 Non-patient / Non-visit MD Jones Work Phone: Count Includes [facility] [email or web address] Work Phone: Start: 05-04-2023 End: 05-04-2023 Office outpatient visit 10 minutes Oswaldo T Dee SHANK ARCHER Work Phone: [facility] Comment on above: 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); Pain in finger of right hand Start: 05-04-2023 End: 05-04-2023 ambulatory RENY NO [facility] Start: 05-01-2023 End: 05-01-2023 ambulatory SANJEEV LOPEZ Not Available Start: 04-19-2023 End: 04-19-2023 ambulatory Scottie Lyn Other [employer] Other Start: 04-19-2023 Telephone encounter Scottie Lyn [facility] Start: 04-14-2023 End: 04-14-2023 Orders Only Serina Rodriguez [facility] Comment on above: Back pain, unspecifi ed back location, unspecified back pain laterality, unspecified chronicity (Primary Dx) Start: 04-12-2023 End: 04-12-2023 ambulatory Johnathon Winter Other [employer] Other Start: 04-12-2023 Telephone encounter Johnathon Winter [facility] Start: 04-11-2023 End: 04-11-2023 ambulatory Johnathon Winter Other [employer] Other Start: 04-11-2023 Telephone encounter Johnathon Winter [facility] Start: 04-10-2023 End: 04-10-2023 ambulatory Johnathon Winter Other [employer] Other Start: 04-10-2023 Encounter by kriss r loretta Winter [facility] Start: 03-16-2023 End: 03-16-2023 ambulatory OSWALDO DEE Not Available Start: 03-09-2023 End: 03-09-2023 ambulatory Johnathon Winter Facility:[facility] Start: 01-30-2023 End: 01-30-2023 ambulatory Johnathon Winter Other [employer] Other Start: 01-30-2023 Telephone encounter Johnathon Winter [facility] Start: 01-02-2023 End: 01-02-2023 ambulatory Johnathon Winter Other [employer] Other Start: 01-02-2023 Office outpatient vi sit 15 minutes Johnathon Winter [facility] Start: 12-09-2022 End: 12-09-2022 ambulatory Johnathon Winter Other [employer] Other Start: 12-09-2022 Telephone encounter Johnathon Winter [facility] Start: 12-08-2022 End: 12-08-2022 ambulatory Johnathon Winter Other [employer] Other Start: 12-08-2022 Telephone encounter Johnathon Winter [facility] Start: 2022 End: 2022 ambulatory Johnathon Winter Other [employer] Other Start: 2022 Office outpatient ne w 30 minutes Johnathon Winter [facility] Start: 10-11-2022 End: 10-11-2022 Emergency department patient visit JOHNATHON WINTER [facility] Start: 10-11-2022 End: 10-11-2022 Emergency department patient visit Roxie Garcia MD Work Phone: [facility] Comment on above: Sprain of right ankl e, unspecified ligament, initial encounter (Primary Dx) Start: 07-11-2022 End: 07-11-[address] SANJEEV LOPEZ . Facility:[facility] Start: 04-29-2022 End: 04-30-[address] SANJEEV LOPEZ . Facility:[facility] Start: 02-16-2022 End: 02-16-2022 Emergency department patient visit JOHNATHON WINTER [facility] Start: 01-03-2022 End: 01-03-2022 Emergency department patient visit JOHNATHON WINTER [facility] Start: 01-03-2022 End: 01-03-2022 Emergency department patient visit Teo Thomas DO [facility] Comment on above: Gastroenteritis (Neetu emil Dx) Start: 08-19-2021 End: 08-19-2021 Emergency department patient visit Radha Sanders MD Work Phone: [facility] Comment on above: Herniated lumbar int ervertebral disc (Primary Dx) Procedures Date Procedure Procedure Detail Performing Clinician Start: 06-12-2023 Follow-up visit Follow-up ROHIT KOLE CAMEJO V Start: 10-11-2022 Radex ankle complete minimum 3 views Bailee Lew MINING SPECULATOR - ROOMING HOUSE KEEPER Work Phone: Start: 01-03-2022 Urinalysis microscop ic only Zachariah Cristian MINING SPECULATOR - [employer]ANK [employer] Work Phone: Start: 01-03-2022 Urnls dip stick/tabl et rgnt auto w/o microscopy Zachariah Cristian MINING SPECULATOR - [employer]ANK ARCH[employer] Work Phone: Start: 01-03-2022 Ct abdomen & pelvis w/contrast material Zachariah Cristian MINING SPECULATOR - [employer]ANK [employer]CH[employer] Work Phone: Start: 01-03-2022 Assay of lipase Zachariah Cristian MINING SPECULATOR - [employer]ANK ARCHER Work Phone: Start: 12-01-2021 Adult depression screening assessment Serina ALVARADO Start: 08-19-2021 Ct lumbar spine w/o contrast material Radha Sanders MD Work Phone: Plan of Treatment Date Care Activity Detail Author Start: 06-11-2024 Adult BMI Screening Adult BMI Screen ing [facility] Start: 06-11-2024 Tobacco Screening Tobacco Screening [facility] Start: 05-16-2024 Adult BMI Screening Adult BMI Screen ing [facility] Start: 05-16-2024 Tobacco Screening Tobacco Screening [facility] Start: 05-08-2024 Adult BMI Screening Adult BMI Screen ing [facility] Start: 05-08-2024 Tobacco Screening Tobacco Screening [facility] Start: 04-14-2024 Adult BMI Screening Adult BMI Screen ing [facility] Start: 04-14-2024 Tobacco Screening Tobacco Screening [facility] Start: 07-19-2023 End: 07-19-2023 Patient encounter procedure 07/19/2023 1:45 PM EDT Office Visit [facility] [address] [facility] [address] [place] [id number] Vishal Martin DO [address] [facility] [address] [place] [address] [facility] Start: 07-17-2023 End: 07-17-2023 Patient encounter procedure 07/17/2023 10:00 AM EDT Office Visit [facility] [address] [facility] [place] [id number] Sanjeev Lopez DO [address] [place] [address] [facility] Start: 06-12-2023 End: 06-12-2023 Patient encounter procedure 06/12/2023 10:05 AM EDT Office Visit [facility] [address] [facility] [address] [place] [address] Rohit Smith MD [address] [place] [address] [facility] Start: 05-19-2023 End: 05-19-2023 Patient encounter procedure 05/19/2023 10:15 AM EST Appointment [facility] [address] [place] [address] [facility] Start: 05-16-2023 End: 05-16-2023 Patient encounter procedure 05/16/2023 1:45 PM EST Office Visit [facility] [address] [place] [address] Rohit Smith MD [address] [place] [address] [facility] Start: 05-08-2023 End: 05-08-2023 Patient encounter procedure 05/08/2023 1:30 PM EST Office Visit [facility] [address] [facility] [place] [address] Reny No, MINING SPECULATOR-ROOMING HOUSE KEEPER [address] [place] [address] [facility] Start: 04-14-2023 End: 04-14-2024 XR Lumbar spine Views W flexion and W extension X-ray spine lumbar ap, lateral, flexion and extension only Imaging Routine Back pain, unspecified back location, unspecified back pain laterality, unspecified chronicity Expected: 04/14/2023, Expires: 04/14/2024 [facility] Work Phone: Comment on above: Expected: 04/14/2023 , Expires: 04/14/2024 Start: 12-02-2022 Influenza vaccination Influenza Vacc ine [facility] Start: 12-01-2022 Depression Screening Depression Scre ening [facility] Start: 11-01-2022 Influenza vaccination Flu vaccine (# 1) [facility] Start: 09-03-2022 Adult BMI Follow Up Plan Adult BMI Follow Up Plan [facility] Start: 12-02-2021 Influenza vaccination Flu vacc ine (Season Ended) [facility] Start: 11-01-2021 Influenza vaccination Flu vaccine (# 1) [facility] Start: 2017 Diabetes screen Diabetes screen [facility] Start: 2012 Screening for malignant neoplasm of cervix [facility] Start: 12-01-2003 Screening for malignant neoplasm of cervix Pap smear [facility] Start: 2001 DTaP,Tdap and Td Vaccines (1 - Tdap) DTaP,Tdap and Td Vaccines (1 - Tdap) [facility] Start: 2001 DTaP/Tdap/Td vaccine (1 - Tdap) DTaP/Tdap/Td vaccine (1 - Tdap) [facility] Start: 2000 Hepatitis C screening Hepatitis C sc reen [facility] Start: 1994 Depression Screen Depression Screen [facility] Start: 12-01-1987 COVID-19 Vaccine (1) COVID-19 Vaccin e (1) [facility] Start: 12-01-1983 Varicella vaccine (1 of 2 - 2-dose childhood series) Varicella vaccine (1 of 2 - 2-dose childhood series) [facility] Start: 06-01-1983 COVID-19 Vaccine (#1) COVID-19 Vacci ne (#1) [facility] Payers Date Payer Category Payer Self-pay 2022 Unknown [id number] 2022 Unknown [id number] 2020 Unknown [id number] 1.2.8 [id number] 1982 Unknown [id number] 2.16.84 0.1.210359.3.579.2.593 1982 Unknown [id number] 2.16.84 0.1.960762.3.579.2.593 1982 Unknown [id number] 2.16. 840.1.084592.3.579.2.175 1982 Unknown [id number] 2.16. 840.1.560430.3.579.2.175 1982 Unknown [id number] 2.16. 840.1.605906.3.579.2.175 1982 Unknown [id number] 2.16.8 40.1.345295.3.579.2.1286 1982 Unknown [id number] 2.16.8 40.1.364535.3.579.2.1286 1982 Unknown [id number] 2.16.84 0.1.675565.3.579.2.1286 1982 Unknown [id number] 2.16.8 40.1.997950.3.579.2.718 1982 Unknown [id number] 2.16.8 40.1.324293.3.579.2.718 1982 Unknown [id number] 2.16.8 40.1.759922.3.579.2.1286 1982 Unknown [id number] 2.16.8 40.1.101393.3.579.2.1286 1982 Unknown [id number] 2.16.8 40.1.784415.3.579.2.1286 1982 Unknown [id number] 2.16.8 40.1.363591.3.579.2.1286 1982 Unknown [id number] 2.16. 840.1.092471.3.579.2.196 1982 Unknown [id number] 2.16. 840.1.853472.3.579.2.196 1982 Unknown [id number] 2.16. 840.1.635138.3.579.2.196 1982 Unknown [id number] 2.16. 840.1.387492.3.579.2.196 1982 Unknown [id number] 2.16. 840.1.030612.3.579.2.196 1982 Unknown [id number] 2.16.84 0.1.484934.3.579.2.9 1982 Unknown [id number] 2.16.84 0.1.215627.3.579.2.9 1982 Unknown [id number] 2.16.84 0.1.266062.3.579.2.1258 1982 Unknown [id number] 2.16.84 0.1.648094.3.579.2.9 1982 Unknown [id number] 2.16.84 0.1.275286.3.579.2.1258 1982 Unknown [id number] 2.16.84 0.1.586030.3.579.2.1259 1982 Unknown [id number] 2.16.84 0.1.089287.3.579.2.9 1982 Unknown [id number] 2.16.840 .1.401808.3.579.2.1259 1959 Unknown [id number] Unknown [id number] 2.16.8 40.1.026116.3.579.2.531 Social History Date Type Detail Facility Start: 06-15-2015 End: 03-31-2022 Tobacco smoking status [facility] Never smoked tobacco [employer] Start: 06-15-2015 End: 03-31-2022 Tobacco use and exposure Smokeless tobacco non-user [facility] Phone: Start: 08-19-2021 End: 06-12-2023 Alcohol intake Current non-drinker of alcohol (finding) [facility] Phone: Start: 05-14-2020 End: 08-19-2021 Alcohol intake [facility] Start: 06-15-2015 History SDOH Alcohol Comment rarely [facility] Phone: Start: 1982 Sex Assigned At Not on file [facility] Phone: Start: 08-09-2021 End: 01-03-2022 Exposure to SARS-CoV-2 (event) Not sure [facility]: History of tobacco use Passive smoker [facility] Phone: Start: 05-14-2020 End: 04-14-2023 Sex Assigned At [facility] Adolescent depressio n screening assessment 0 [facility] Start: 05-04-2023 Alcohol intake Ex-drinker (finding) [facility] Start: 10-09-2022 Alcohol Comment Alcohol: 1 or 2 drinks on typical day/monthly or less. Caffeine: 1-2 cups/day tea [facility] Start: 1982 Sex Assigned At Female [facility] Start: 09-21-2022 Gender identity Identifies as female gender (finding) [facility] Start: 09-21-2022 Sexual orientation Heterosexual (finding) [facility] [...] take another few months to subside. Recommended tmos-ycp-rgdgrev pain relievers as needed. She is content [...] any severe symptoms. documented in this encounter [facility] 05-16-2023 History of Present illness Narrative [facility] Chief Complaint: [...] a snap. She initially followed up with [facility] Orthopedics and was diagnosed with right ring [...] External notes reviewed: I reviewed notes from [facility] orthopaedics. Review of test/study reports: I reviewed an x-ray obtained of the right ring finger. There were no acute osseous abnormality such as fracture dislocation. My personal interpretation of tests: I personally viewed and interpreted X-rays from [facility] as above. Xrays done in office today: None. Assessment: 1. Mallet deformity of right ring finger - [facility] - [place], [place] 2. Finger injury, right, initial encounter - [facility] - [place], [place] Plan: I discussed treatment options with [...] with her flexion. documented in this encounter [facility] 05-10-2023 Evaluation note Encounter Date Diagnosis Assessment Notes May, Adult ADHD (attention deficit hyperactivity disorder) (ICD-10 - F90.9) [facility] Other 02-01-2024 History of Present illness Narrative* [...] finger for about 2 weeks. Went to [facility]09 due to having numbness in finger and unable to straighten it. Had XR at . On 03/13, pt went to [facility] and had another XR. Unable to get into hand specialist at [facility] until May 16. Continues to [...] crooked. PT is RT handed Prior [place]: [facility] 03/09/23, XR, Spl[facility], [facility], XR 03/13/23, Ice, Heat, IBU, [facility] ALLERGIES: No Known Allergies HOME MEDICATIONS: Current Outpatient Medications Medication Instructions amphetamine-dextroamphetamine (Adderall) 20 MG tablet 1 TABLET ORALLY MID DAY 30 DAYS cyclobenzaprine (Flexeril) 10 MG tablet PLEASE SEE ATTACHED FOR DETAILED DIRECTIONS fluconazole (DIFLUCAN) 100 mg, Oral, Daily nystatin (Mycostatin) 817251 UNIT/GM powder APPLY TO AFFECTED AREA TOPICALLY [...] normal Pronation: normal Supination: normal Muscle Strength Packaging Inspector: 3/5 Other Erythema: absent Pulse: present Comments: [...] develop for requiring urgent evaluation. Oswaldo Dee MINING SPECULATOR-ROOMING HOUSE KEEPER documented [facility] [id number] Evaluation note* Encounter Date Diagnosis Assessment Notes Treatment Notes Treatment Clinical Notes Apr, Adult ADHD (attentio n deficit hyperactivity disorder) (ICD-10 - F90.9) [facility] Other 01-10-2024 Evaluation note* Encounter Date Diagnosis Assessment Notes Treatment Notes Treatment Clinical Notes Apr, Adult ADHD (attentio n deficit hyperactivity disorder) (ICD-10 - F90.9) [facility] Other 01-09-2024 Evaluation note* Encounter Date Diagnosis Assessment Notes Treatment Notes Treatment Clinical Notes Apr, Adult ADHD (attentio n deficit hyperactivity disorder) (ICD-10 - F90.9) [facility] Other 01-08-2024 Evaluation note* Encounter Date Diagnosis Assessment Notes Treatment Notes Treatment Clinical Notes Apr, Adult ADHD (attentio n deficit hyperactivity disorder) (ICD-10 - F90.9) [facility] Other 12-07-2023 NotePatient Education Materials Follows: Mallet [...] or lying down. General instructions ? Take ovep-zkb-syxipzd and prescription medicines only as told by [...] health care p (more contentnot included)...[id number] Evaluation note * Encounter Date Diagnosis Assessment Notes Treatment Notes Treatment Clinical Notes Jan, Adult ADHD (attentio n deficit hyperactivity disorder) (ICD-10 - F90.9) [facility] Other 10-02-2023 Evaluation note* Encounter Date Diagnosis [...] in 3 months or sooner if needed. [facility] Other 09-08-2023 Evaluation note* Encounter Date Diagnosis Assessment Notes Treatment Notes Treatment Clinical Notes Dec, Adult ADHD (attentio n deficit hyperactivity disorder) (ICD-10 - F90.9) [facility] Other 09-07-2023 Evaluation note* Encounter Date Diagnosis Assessment Notes Treatment Notes Treatment Clinical Notes Dec, Adult ADHD (attentio n deficit hyperactivity disorder) (ICD-10 - F90.9) [facility] Other 08-30-2023 Evaluation note* Encounter Date Diagnosis [...] Cutaneous candidiasis (ICD-10 - B37.2) Refilled diflucan. [facility] Other 07-11-2023 Hospital Discharge instructions* Discharge Instructions* RIZWAN Dietz CNP - 10/11/2022 8:08 PM EDT Please call and schedule a follow-up appointment with [facility]. Use an ice pack or [...] through Care Everywhere. * RICE: General Info (Bahraini) * Ankle Sprain ([place]i) [facility] Discharge instructions* Instructions* Radha Sanders MD - 08/19/2021 May use ice or heat, whichever feels better. May use [place] for pain. Prednisone as directed. Follow-up with [...] a follow up appointment THANK YOU!!! From [facility] and [facility] On behalf of the Emergency Department staff at [facility], I would like to thank you for giving us the opportunity to address your health care needs and concerns. We hope that during your visit, our service was delivered in a professional and caring manner. Please keep [facility] in mind as we walk with [...] did during your visit at [email or web address] and let us know about your experience * Attachments The following attachments cannot be sent through Care Everywhere. * Herniated Disc ([place]raini) [facility]* Diagnosis Herniated lumbar intervertebral disc- Primary Displacement of lumbar intervertebral disc without myelopathy documented [facility] Work Phone: evaluation note* Diagnosis Gastroenteritis- Primary Other and unspecified noninfectious gastroenteritis and colitis documented in this encounter [facility] [employer] Phone: evaluation note* Diagnosis Sprain of right ankle, unspecified ligament, initial encounter- Primary documented in this encounter [facility] joizEvaluation note* Diagnosis Back pain, unspecified back location, unspecified back pain laterality, unspecified chronicity- Primary documented in [facility] encounter [facility] SystemEvaluation noteNo InformationNort Genero Other Evaluation note* Diagnosis 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 Pain in finger of right hand Pain in soft tissues of limb documented in this encounter [facility] HealthcareEvaluation note* Diagnosis Herniated lumbar intervertebral disc- Primary Displacement of lumbar intervertebral disc without myelopathy documented in this encounter [facility] [employer] SystemEvaluation note* Diagnosis 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 Finger injury, right, initial encounter documented in this encounter [facility] SystemEvaluation note* Diagnosis Herniated lumbar intervertebral disc- Primary Displacement of lumbar intervertebral disc without myelopathy Lumbar radiculopathy, chronic documented in this encounter [facility] Street[employer] SystemEvaluation noteNo assessment information [facility] Work Phone: Evaluation note* Diagnosis Lumbar radiculopathy, chronic- Primary Herniated lumbar intervertebral disc Displacement of lumbar intervertebral disc without myelopathy documented in this encounter [facility] SystemEvaluation note* Diagnosis 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 documented in this encounter [facility] StreetInvest[employer] SystemHistory general Narrative - Reported* Type Description Date Medical History PCOS/insulin resistant Medical History PCOS (polycystic ovarian syndrom e) Medical History Frequent headaches Medical History Gestational diabetes Medical History Prediabetes Surgical History cholecystectomy 2004 Surgical History appendectomy 2006 Surgical History Hospitalization History see surgical hx [employer] [facility] Other Hospital Discharge instructions* Attachments The following attachments cannot be sent through Care Everywhere. * Gastroenteritis ([place]i) [facility] [employer] Phone: InstructionsNot on filedocumented in this encounter [facility] SystemInstructionsNot on filedocumented in this encounter [facility] SystemInstructionsNot on filedocumented in this encounter [facility] SystemInstructionsNot on filedocumented in this encounter [facility] (n[facility]ative)* Consultation (Routine) - Pending Review Specialty Diagnoses / Procedures Referred By Contact Referred To Contact Physical Medicine and Rehabilitation Diagnoses Herniated lumbar intervertebral disc Lumbar radiculopathy, chronic Reny No APRN-CNP [address] [place] [address] Vishal Martin DO [address] [place] [address] Referral ID Status Reason Start Date Expiration Date Visits Requested Visits Authorized [id number] Pending Review Specialty Services Required 05/24/2023 05/23/2024 1 1 [facility] Consultation (Routine) - Pending Review Specialty Diagnoses / Procedures Referred By Contac t Referred To Contact Pain Medicine Diagnoses Lumbar radiculopathy, chronic Herniated lumbar intervertebral disc Reny No APRN-CNP [address] [place] [address] Davis Silva MD [address] [place] [address] Referral ID Status Reason Start Date Expiration Date V isits Requested Visits Authorized [id number] Pending Review 06/12/2023 06/11/2024 1 1 [facility] Advance Directives No Advanced Directives Records FoundDocuments on File Type Date Recorded 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 ACP-Advance Directive ACP-Power of Dependency Case Manager Advance Directive Response Recorded Date/ Time Advance Directives No December 7:20pm Summary Purpose Family History No Family History [...] site of digit, initial encounter Nicole Lockwood, MINING SPECULATOR-ROOMING HOUSE KEEPER [address] [place] [address] Rohit Smith MD [address] [id number] Referral ID Status Reason Start Date Expiration Date Visits Requested Visits Authorized [id number] Pending Review Specialty Services Required 3 03/12/2024 [...] 10 mg, IntraMUSCular, ONCE, 1 dose, On [place] 08/19/21 at 1700 1655 (Given - Provid er: Luiza Gerard RN - Comment: Medication would not scan at bedside. Verified with [facility] prior to administration.) Scheduled Medication Order [...] Care Teams (unrecognized sec tion and content) Social Media Marketing Manager Relationship Specialty Start Date End Date Johnathon Winter MD PCP - General Family [facility] 03/08/16 Social Media Marketing Manager Relationship Specialty Start Date End Date Johnathon Winter MD PCP - General Family Medicine 03/08/16 Social Media Marketing Manager Relationship Specialty Start Date End Date Johnathon Winter MD PCP - General Family Medicine 03/08/16 Social Media Marketing Manager Relationship Specialty Start Date End Date Johnathon Winter MD [address] [place] [address] [id number] PCP - General 03/13/23 Social Media Marketing Manager Relationship Specialty Start Date End Date Johnathon Winter MD [address] [place] [id number] PCP - General Family Medicine 12/12/22 Social Media Marketing Manager Relationship Specialty Start Date End Date Johnathon Winter MD [address] [place] [id number] PCP - General 03/13/23 Social Media Marketing Manager Relationship Specialty Start Date End Date Johnathon Winter MD [address] [place] [id number] PCP - General 03/13/23 Social Media Marketing Manager Relationship Specialty Start Date End Date Johnathon Winter MD [address] [place] [address] PCP - General 03/13/23 Team Status: Active Member Role Status Dates Johnathon Winter MD Primary Care Provide r, Attending Provider Active Start: May 10, 2023 Team Status: Inactive Member Role Status Dates Tee Peterson MD Attending Provider Active Start: May 23, 2023 End: May 23, 2023 Social Media Marketing Manager Relationship Specialty Start Date End Date Johnathon Winter MD [address] [place] [address] PCP - General 03/13/23 Team Status: Active [...] and content) DATE CREATED AUTHOR 07/17/2022 [facility] DATE CREATED AUTHOR AUTHOR'S ORGANIZ ATION 10/12/2022 [facility] DATE CREATED AUTHOR AUTHOR'S ORGANIZ ATION 06/12/2023 [facility] DATE CREATED AUTHOR AUTHOR'S ORGANIZ ATION 09/02/2023 [facility] DATE CREATED AUTHOR AUTHOR'S ORGANIZ ATION 11/23/2023 [facility] DATE CREATED AUTHOR AUTHOR'S ORGANIZ ATION 12/01/2023 [facility] DATE CREATED AUTHOR AUTHOR'S ORGANIZ ATION 12/07/2023 [facility] DATE CREATED AUTHOR AUTHOR'S ORGANIZ ATION 12/09/2023 [facility] ysician Group Goals (unrecognized section and content) Goals may [...] BE BASED ON THE PRIMARY CLINICAL RECORDS. [facility] [employer] [facility]. provides no warranty or guarantee of the accuracy or completeness of information in this document.
== END 2023-12-06 09:43 | disposition home or self-care (01) ==
LOC: LAB 09:42
PROVIDERS: PCP Family Medicine; Visit Provider Obstetrics & Gynecology
DX: N92.0 Excessive and frequent menstruation with regular cycle (principal)
CPT/HCPCS: 88305

== ENCOUNTER 2023-12-06 13:41 | Outpatient (OUT) | payer BC, SELFPAY ==
--- OUTSIDE RECORDS SUMMARY | 2023-12-06 14:04 | XMS_ITS | CCD ---
Author Organization [facility] Care Team Providers Care Technical Support Manager Name Role Phone Johnathon Winter MD Primary Care Provider GEORGINA ., DR ROMERO Admitting Unavailable GEORGINA ., DR ROMERO Attending Unavailable REQUEST, DR NONE LISTED Primary Care Unavaila ble GEORGINA ., DR ROMERO Consulting Unavailable Zieber, Tee Consulting Unavailable GEORGINA ., DR ROMERO Admitting Unavailable GEORGINA ., DR ROMERO Attending Unavailable REQUEST, DR NONE LISTED Primary Care Unavaila ble GEORGINA ., DR ORMERO Consulting Unavailable Johnathon Winter MD Primary Care Provider JOHNATHON WINTER Primary Care Unavailable ROXIE GARCIA Attending Unavailable JOHNATHON WINTER Primary Care Unavailable SANCHEZ AGUSTIN Attending Unavailable JOHNATHON WINTER Primary Care Unavailable TEO THOMAS Attending Unavailable Johnathon Winter Unavailable Johnathon Winter MD Primary Care Provider Scottie Lyn Unavailable Johnathon Winter MD Primary Care Provider MD Tee Peterson Attending Provider Tee Peterson Attending Unavailable Tee Peterson Admitting Unavailable ROHIT LARKIN Attending Unavailable JOHNATHON WINTER Referring Unavailable JOHNATHON WINTER Primary Care Unavailable JOHNATHON WINTER Referring Unavailable JOHNATHON WINTER Primary Care Unavailable KAL MARTINEZ Attending Unavailable ROHIT LARKIN Attending Unavailable ASMITA MONTGOMERY Referring Unavailable WESLY WINTERIA E Primary Care Unavailable KELI Resendez Admitting Unavailable Johnathon Winter E Primary Care Unavailable EKLI Resendez Attending Unavailable Wesly Winteria E Primary Care Unavailable Sanchez John Attending Unavaila Sanchez Parham Admitting Unavaila RENY Abreu Attending Unavailable JOHNATHON WINTER Referring Unavailable JOHNATHON WINTER Primary Care Unavailable MARTÍN ORTEGA Attending Unavailable JOHNATHON WINTER Referring Unavailable WESLY WINTERIA Jay Primary Care Unavailable RENY NO Referring Unavailable JOHNATHON WINTER Primary Care Unavailable RENY NO Referring Unavailable JOHNATHON WINTER Primary Care Unavailable SANJEEV LOPEZ Attending Unavailable OSWALDO DEE Attending Unavailable SANJEEV LOPEZ Attending Unavailable SANJEEV LOPEZ Attending Unavailable ROBERT URRUTIA Attending Unavailable SANJEEV LOPEZ Referring Unavailable SANJEEV LOPEZ Attending Unavailable OSWALDO DEE Attending Unavailable Felicia SÁNCHEZ, Bhavin Primary [facility] Unavailable Miguel SÁNCHEZ, Christiano Mcgovern Attending Unavailable Felicia SÁNCHEZ, Bhavin [facility] Unavailable Miguel SÁNCHEZ, Christiano Mcgovern Attending Unavailable Felicia SÁNCHEZ, Bhavin [facility] Unavailable Miguel SÁNCHEZ, Christiano Mcgovern Attending Unavailable Miguel SÁNCHEZ, Christiano Mcgovern Attending Unavailable Felicia SÁNCHEZ, Bhavin [facility] Unavailable Miguel SÁNCHEZ, Christiano Mcgovern Attending Unavailable Felicia SÁNCHEZ, Bhavin [facility] Unavailable Allergies Allergy Classification Reported Allergen(s) Allergy Type Date of Onset Reaction(s) Facility (1 source) topiramate; Translations: [TOPIRAMATE] Drug Allergy 12-19-2013 [facility] Repository Medications Current Medications Medication Drug Class(es) Dates [...] Active Start: 2022 take 1 capsule by [facility] every twenty-four hours Vyvanse 30 MG 1 [...] once a week. 0 02/27/2023 Active nystatin 609466 unt/ml topical cream (9 sources) Polyene Antifungal Start: 05-01-2023 End: 04-30-2024 nystatin (Mycostatin) cream Indications: Follow-up encounter involving medication , Superficial skin infection Apply topically 2 (two) times a day 30 g 3 05/01/2023 04/30/2024 Active Start: 04-14-2023 nystatin (MYCO STATIN) powder Apply 1 Application topically in the morning and 1 Application before bedtime. 0 04/14/2023 Active Start: 04-14-2023 nystatin (Myco statin) 050072 UNIT/GM powder Indications: Skin irritation APPLY TO [...] Active Start: 01-03-2022 take 1 tablet by [facility] three times daily as needed for nausea [...] days 20 tablet 0 08/19/2021 08/29/2021 Active Lxq-Ysg-IH-Fish Oil ([facility]) 0.4-113.5 MG CHEW (2 sources) Dau-Usp-RI-Fish Oil ([facility]) 0.4-113.5 MG CHEW Take [...] sources) Attention-deficit hyperactivity disorder, unspecified type Chronic Attention-deficit, conduct, and disruptive behavior disorders (1 source) Attention-deficit hyperactivity disorder, predominantly inattentive type; Translations: [Attention-deficit hyperactivity disorder, predominantly inattentive type] Onset: 11-22-2023 Chronic Genitourinary symptoms and ill-defined conditions (1 [...] disc displacement, lumbar region] Onset: 08-25-2021 Chronic Sprains and strains (4 sources) Sprain of [...] [Abnormal weight gain] Onset: 10-06-2022 04-14-2023 Episodic Residual codes; unclassified (1 source) Unspecified symptoms and signs involving general sensations and perceptions; Translations: [Unspecified symptoms and signs involving general sensations and perceptions] Onset: 06-06-2023 Episodic Spondylosis; intervertebral disc disorders; other back problems (8 sources) Backache; Translations: [Dorsalgia, unspecified] Onset: 04-14-2023 04-14-2023 Episodic Unclassified (6 sources) Onset: 09-03-2021 09-03-2021 Results Test Name Value Interpretation Reference Range Facility Coding Summaryon 09-01-2023 Coding Summary HTMLBase 64 BtwtvekpEYv8bEq+PGhlYWQ+ XE6ELDJoT84esJSneJ3hV0RR TElOSywgQVBQTElOSyIgbmFt RQ8zaMRkIPPg IC8+JB8zTLVgVpvfdBTmo6S6 vZQ0B83vrc7cHObouYK2HYZh MqKvzpanh8mejQl7JActYvhw OyBt PKBfpL74ZVB1lZ95Kb56sHFa kFWve8qhxNi0EgEcFUYcKUR3 kGxkIJghp1ZkNRCkR94cvRGc c2U6 JICwcIsclTZpLbLeaLM5zR7w QVmssrkup4lzdvhtDdw9ai41 eLPqx6I5cZF4O3KdiuE4NTHw bGQg FehkvRMZzH3ukpexx2swakck HpExKBEbMNn1VOx5CYWexHus BtNeGX41SKS9LXHfojTkE4Js LWFs sCkgDaO5b0H5Io1EK9RCIcma J1EYHZPGWSckmIJ+ZX91sa29 E0MjYqgfFof4ASJoGBE3xKQ9 aD0n EKDvVBiag0B6fGG4H2UxzsPd nr3hf5ldITWqRNqpL01rhAWg f8U4NLTxcUH6ZOCwgSqrCaIg aG93 Oyc+YMFewXtgy5PlOdxhc5gx v7ocfSh0HvtfQTVrwvDnrIxd CHP2i6PcHt5rXURcrIZ6kBM0 aD0i VuVuQlU8UNsvI861XlDqzIBk CeivB78nS0RbbVR+PHRyPjx0 LZUntCkpCU9eU2GuMTAqsvjw bGVm xPqhHB7uHOHtghopPLUwnY8n WPRbQ8d6CuFiAdQ5DDykJ5Rd FPAqxidnYt41cX7uNnZdTgS2 MGlu F3MdarT2BAPqdUGpSSuxBYX3 Y46ha9T4JHBbJBCiQXP6eOG6 kC5ttHzmnfquuAElqNojuyAk dGlj XQmiUQzqX709JPOygLemCcDz ZGluZyBEYXRlOiAgMDUvMzEv MjAyNDwvdGQ+AVOuBEU1mTzy PSAn iCFlBFyiCy7fxSnpcSboAZ3t ZZNygkcwCQIirK5rRIRmdUZo ySjkRX1yRLWldvjwu179EwLp MHB0 FYAggKFxT9LhyD5yRcEtKTWi NSDjF5QktLGiWUxjX172RTdn RiK6ZMTlpoUlO6AyRNBpsDpo OiB0 n2J7Vr4Lt3GdxsbbD9ItoTIf MgPdKpctSLc7Z6PoJbiazPP+ SQ36OJLzCI20AHv1BNC0pSnu PSdi UNEzP9HhyZ6qYmVlWQRgQHQq Oyc+PHRhYmxlIHdpZHRoPScx SHVtGvAnsGdaFD2jYl6iDEXm LWNv hPqfmXVxQvUfi1waFUSyZRwy LQ3caRblG4ZujQQ3QQZoe9f4 Wf78G31eB0MflLB+PGNvbCB3 aWR0 vN9nEiHcCjH0YIeiC751NhNd sZAfPolbg9ofe0kpwOn1XlA7 QEZrtuHiqRavYMM2b6PnJs87 Y29s IHdpZHRoPSIxNSUiIHZhbGln kf8lcQ6hSe0+ZCTcuLC0rZV1 eB1lNyQjRvP5HBxgY086LzBt cCIv Mnkns1mad8eerWq9DkHmREIr rwEjhFocXDO3r0MqVa66U7Af vGxqe9JnUlk4qy22cKFvm6I4 bGU9 L6DzEBKebephvGLoqKwlGE8r VXKjcnkpDGZxdF0kRIHyF0g7 GgUzPdB3VDbwZ0QvhbY1QGNi bGQg CRLpmCXSyM6ydvsvp8gxqinu JrEfXHZmGAz8JCu1UJAqeYlg LxRiMZY0QwG6HNP1nFMwmZ5b bGln hwfawC0pVjy+JCH4hQOvoWTQ FB7wBsxyuBH+XHVaBOB7tAes SWksAQAdgS7gABIfX7k2XeSd LjA1 DDsbI6KjmgR1JTMcgCQxVLUc pDKFwY3etgayh1buxyveMqBe PLXfHZm0BIq4CYHlmChzPsJg ZWZ0 TwX0RWJ5uGTprQ9ovEraxwib aH2zGjv+EorojLzpLSP7DIi9 X3HmDvc3EVQolIicKB6wfMWn ZGlu Sr8tfIxhrRwcOL6yQFIobeqn b757SeRjv6isRCEzfSKaYAsc DSL0A05nf5M1IWGeGHNlPBA5 dGV4 iW6ovDbuakjjvBBgyDsyygMw dBflKNzvOZreT724GUEcyMsk XhDuFDu6O2ZuGqc8XDEfzLzy ZT0n uODjWLxqBb2dvKspqZefFB5a HLOgdfojk006VlBva6wwWOFe wOEhLAfcJIR1R27gt7S5QGKr MDAw AYL7mSG6oO9pdPxqxtiexMWp kBsvquKviKfhJNwyUOyvF800 CTSpvSmwUeGiaTs4J2RgBmj7 ZCBz zQcfKF4kmBVnGBpiTb0nzMxs gXmxXX9aVWUwearcd112FqWd v3iiGMRvdFHgMEfrAFG0H13g b3I6 ZFObUATiWRL1qQM8hP4diLtl bjogbGVmdDsgdmVydGljYWwt FAgjZ440EMHcuUisSlWmvEuk bnQg WSpkBNy5G9LwGmojqGZ+PC90 PHJpOT61aHWwjWFkk9lunZx2 TxFdQFGwYDP1zCgkFIseh4Jc ZXIt W22anQEmh4M0XAHnvEuujRTq NpXdmIN1fI0uOHdjfndhz0gv behxKrnos9lgvr85cW25W47q IHdp KWGqXDBjNPZgYGYvaJejdl5m oT7tFt7+AKKueAI3zUM9qO4h NOGzFgG7GUtdR884RqWbdQLa Pjxj o8jia4ncgAv7EwT7DQVzhuTs lEntSSJ1w5JrQn79M39gXDfp TUBuBICpJKPoVKFvtXedpt2q dG9w Ii8+TBMimIT3rLV9hQ7cVeWz TdH7GTqoA965EbZmaBKuTwyo G87qC4YipZS+ZTLdLsh5DEZp dHls PH1pzNRtHAsaCz9oVRB4WwXy PxPrFJnqB9PnJZVqgwnwffvt gSF1AUXaAZTezY19Bb3jpSwx MTBw fTDRnE1biajly7xahchtLlFz JEGfMMz9PQq7OXMymTtaIbNi NYD3KbO5OGK5qXKqsN0luHsi bjog vB6zJ6RvUSPyukikPq78mZ9x AeBaCpI4JVpqLdk+L78ZA8sD LCBBTUFOREEgREFXTjwvdGQ+ PHRk OLG3wNbzUKckVJWacK3cRGOp B6o5JzTtTfX3VQsaN9CcFWIk elmiGr92tL7jDcWrAoC0ANoj O2Zv xcF0AOLoyYZqEQivZBW8N66l k0D1NYMpRZWjZST0fBT8oD0w bGlnbjogbGVmdDsgdmVydGlj YWwt QZsoY025UWLupDwqFwY5HjAw LnT7DIQ8D7BfYnk8OQVogOvj MI0uhRToXKcqQe9dfOnrrYdc MC4w EEOuuhjbRTIrtR6xAPFcnAEt zGzeGB6pOOOoehuit450GhNv PXC0GWVvkDOlN9LeoY6lHrBi MDAw UPKqD3LtfZQnRXplG221UBss WnP6YHYpqxErY3HfLNJstWrw PwY9n3D1Hl21PEHGRLZuufqu dGQ+ GWZsFRS5kVbqCJbeCUZzdU3o KCDzO1z9RwIjJtN1DEnaA5Dh RPOrrlfmTq52cK2gZiEfGrR2 MGlu T8ZnpwM1FTUqiSZlSJrsZXS8 K33ix2F1UXYiSNFaEYC1lPU2 lW1oxKwdpkjcoVPobTmsaiKh dGlj VPgiEMkbH466RCPyaPtxEcSP TUFMRTwvdGQ+TLMkMVZ5eMff OQqfGJVqkH5qPLEfS3r6YkNx LjA1 COqiK0NbOUVzoqzzEv06gX5d CtYuToV8CEobO0JlieW2CHYx nPJsPKjhWLM3W62za4O4IJMh MDAw OIO2lVP6pN7mpXjavjjbyFDw fLzlcwVnqZkeEYtvFTbtN515 UNMcsBskSi7QVJ67XS78N5Hd Pjwv dGFibGU+PHRhYmxlIHdpZHRo KBbtUGIkDaVtuVbbDM9nDb0s RGMcDFFcpBzjtAZpSdPbw6dd YXBz NXtxFP7klZtzW4JnjYZ7NNXu x3q8Qj16F92mH7LshWB+PGNv eLO8iOO8oE3sXmHwHrX2VDyv Z249 JzNpdULtNlawy6hyc5rawBu9 WpOrLWPdetBxjSckSPO6s8Pn Hy27L56xIKgzCJSgVHQoGOPt IHZh hLcqux8reP9sJv9+PGNvbCB3 lPB2nU1qPoDjDkS6EPpsC151 KvDmnEJpQpnjT97pF4LleTQ+ PHRy Ecj0RMDdjGylKA9ayRNeGTfo Xp1uXBO0PfTxFcZxXWnvQ7Gi CGVjnayzcqpjxUO2XEEvQPUo aW47 Os4srCcfFv3kXKUwGRJ6LUFd qLGrR0YgnW6iErPbYQTiRUJj V0TxuIQxQFujL189GLszAyX8 IHZl srQbB9QdAOZuyMrqNsT8c6O7 Cz3OcEgprPRsCS0zGwKdUKy6 Z6XtRkd5PWPomBubSY9ysZOa ZGlu Bs7bhXrlaAgbNK1lRCSpessu g614FrKxp0nzSYZrqJZgVSdu GPB9T08ce7L3PPHiEPXgJJB5 dGV4 pV2lyNegyyuqgHXesJgqvdHu zGwbAJdnSPjwV533FLQlbRvm GpATEyp1Z7XiCta8VBUckGca ZT0n wEEvEZylRn8qeVpqgBsoRL4z KZOpbvlon204QwCjo1ctNDWh gVDfDWyqNXA8H97sl7M1GLAi MDAw YQR2dLO3jE5igPzjxlmbaGBr hVitbdBkzLypRYnjMEhwJ364 ZLMwcAioCh2ADmh6P5NeOkz7 ZCBz tIjlVI0ezCTlYTsxNh7hbGbu pXdlWV0hSGGdhszfx462MkKz m0wkDAItkSCgAZvnSXX8N66l b3I6 JWMhGYZoUVD2gBF4oA6jeEfe bjogbGVmdDsgdmVydGljYWwt ZNgzN633LIDbpJrpYsNixLSn Ojwv dGQ+GA55nq14B5FcNzgkUbh8 XVSySZH5cFT0mN2sSZUrAInt v5T2lGK6A3JullFprp9qj9sp YXBz ZTo (more content not included)... Normal [facility] ED Clinical Summaryon 2023 ED Clinical Summary [facility] ? Urgent Care [address] [place] [address] Clinical Summary PERSON INFORMATION Name: KARUNA DUMONT Age: 42 Years Sex: FEMALE : 1980 MRN: Acct#: Visit Reason: Skin problem; RASH ON ARMS Arrival: 08/23/2023 14:45:23 Discharge: 08/23/2023 15:20:00 LOS: 000 00:35 Check In: 08/23/2023 14:45:23 Checkout: 08/23/2023 15:20:00 Address: [facility] [id number] PCP: Johnathon Winter MD PROVIDER INFORMATION Provider Role Assigned Unassigned Phuong Oseguera DIAGNOSTIC SALES SPECIALIST Nurse 08/23/2023 14:46:59 Yissel Resendez PA-C ED [...] Follow-Up: With: Address: When: Johnathon Winter MD [address] [place] [address] DIAGNOSIS: 1:Rash and nonspecific skin eruption; 2:Elevated blood pressure reading without diagnosis of hypertension Patient Understands: Comment: Normal [facility] ED Patient Summaryon 024 ED Patient Summary [facility] ? Urgent Care [address] [place], [place] [id number] PATIENT DISCHARGE INSTRUCTIONS Patient Information Name: KARUNA DUMONT Age: 42 Years Date of : 1980 Reason For Visit: Skin problem; RASH ON ARMS Arrival Time: 08/23/2023 14:45:23 Primary Care Physician: Johnathon iWnter MD Attending Physician: Yissel Resendez PA-C Comment: Patient Education With: Address: When: Johnathon Winter MD [address] [place], [place] [id number] Rash, Adult A rash is a change [...] with your condition: Medicine Take or apply elkv-mbk-jbaxjrk and prescription medicines only as told by [...] a bath with: ? Epsom salts. Follow technical account executive instructions on the packaging. You can get these at your local pharmacy or grocery store. ? Baking soda. Pour a small amount into the bath as told by your health care provider. ? Colloidal oatmeal. Follow technical account executive instructions on the packaging. You can get this at your local pharmacy or grocery store. ? Try applying baking soda paste to your skin. Stir water into baking soda until it reaches a paste-like consistency. ? Try applying calamine lotion. This is an egmi-xww-zoeogvo lotion that helps to relieve itchiness. ? [...] rash from spreading. ? Take or apply pnqy-sub-hmsifbg and prescription medicines only as told by your health care provider. ? Contact a health care provider if you have new or worsening symptoms. ? Keep all follow-up visits as told by yo (more content not included)... [facility] 05-23-2023 L Specimen: [id number] Received: 05/24/23 Status: NATHAN Guzmán Num: [id number] Spec Type: Surgical Subm Dr: Tee Peterson MD Tissues: A BREAST CORE NO CALCS (LT BREAST) Procedures: HE/4, Gross/Micro L4, AE1-AE3/2 Age/ Patient Sex Location Account Attending Physician Karuna Dumont 42/F [facility] [id number] Tee Peterson MD SPEC NUM: [id number] RECD: 05/24/23 STATUS: NATHAN GUZMÁN NUM: [id number] GENEVA: 05/23/[address]: Tee Peterson MD ENTERED: 05/24/[address] [facility] DR: Bert,Lab SPEC TYPE: Surgical DEPT: [facility] [...] Time: 0.10 Formalin Fixation Time: 28.50 Specimen: [id number] Received: 05/24/23 Status: NATHAN Guzmán Num: [id number] Spec Type: Surgical Subm Dr: Tee Peterson MD Tissues: A BREAST CORE NO CALCS (LT BREAST) Procedures: MELANIEShanique, Gross/Micro L4, AE1-AE3/2 Patient: Karuna Dumont Radha [id number] (Continued) Specimen: [id number] Received: 05/24/23 (Continued) Signed (signature on file) Tootie Jordan MD 05/31/23 2106 Specimen: [id number] Received: 05/24/23 Status: NATHAN Guzmán Num: [id number] Spec Type: Surgical Subm Dr: Tee Peterson MD Tissues: A BREAST CORE NO CALCS (LT BREAST) Procedures: MELANIEShanique, Cheyanne/Micro L4, AE1-AE3/2 Patient: Karuna Dumont [id number] (Continued) Specimen: [id number] Received: 05/24/23 (Continued) CPT Codes 68838 Specimen: [id number] Received: 05/24/23 Status: NATHAN Guzmán Num: [id number] Spec Type: Surgical Subm Dr: Tee Peterson MD Tissues: A BREAST CORE NO CALCS (LT BREAST) Procedures: HE/4, Gross/Micro L4, AE1-AE3/2 Patient: Karuna Dumont [id number] (Continued) Signed (signature on file) Tootie Jordan MD 05/31/232105 [facility] MR LUMBAR SPINE WO CONTon MR [...] Yung Perry on 05/23/2023 12:47 PM Normal [facility] Free testosterone measuremen t by LC-MS/MSon 05-10-2023 Testosterone Free [Mass/Vol] 0.6 pg/mL 0.0-4.2 [facility] Comment on above: Performed at: [facility] angelina [address] [id number] Director: Theron Roblero PhD, Phone: [phone] at: [facility] [address] [id number] Director: Katelynn Macdonald MD, Phone: [phone] No Panel Informationon 05-10 C-Peptide 2.8 ng/mL 1.1-4.4 [facility] Comment on above: C-Peptide reference interval is for fasting patients.Performed at: [facility] [id number] Director: Theron Roblero PhD, Phone: [phone] Dehydroepiandrosterone Sulfate 194.0 ug/dL 57.3-279.2 [facility] Free Cortisol, Dialysis, LCMS 0.787 ug/dL . [facility] Comment on above: These tests were dev eloped and their performancecharacteristics determined by [facility]. They have not beencleared or approved by the Food and Drug Administration.Reference Range:8 AM 0.10 - 1.204 PM 0.042 - 0.872Performed at: [facility] [id number] [place], [place] [id number] Director: Kal Archibald MD, Phone: [phone] Reverse Triiodothyronine (T3) 23.0 ng/dL 9.2-24.1 [facility] Comment on above: This test was develo ped and its performance characteristicsdetermined by [facility]. It has not been cleared orapproved by the Food and Drug Administration.Performed at: [address] [id number] Director: Katelynn Macdonald MD, Phone: [phone] Sex Hormone Binding Globulin 49.1 nmol/L 24.6-122.0 [facility] Comment on above: Performed at: - [id number] [place], [place] [id number] Director: Theron Roblero PhD, Phone: [phone] Testosterone Level 22 ng/dL 8-60 [facility] Plasma serotonin measurement (mass/volume)on 05-10-2023 Serotonin (P) [Mass/Vol] 105 ng/mL 31-207 [facility] Comment on above: This test was develo ped and its performance characteristicsdetermined by [facility]. It has not been cleared orapproved by the Food and Drug Administration.Performed at: [address] [id number] Director: Katelynn Macdonald MD, Phone: [phone] Serum estrone measurementon 05-10-2023 E1 [Mass/Vol] 65 pg/mL 231 [facility] Comment on above: Range Adult (Premeno pausal) 27 - 231 Menstrual Cycle (1-10 days) 19 - 149 Menstrual Cycle (11-20 days) 32 - 176 Menstrual Cycle (21-30 days) 37 - 200Performed at: [address] [id number] Director: Katelynn Macdonald MD, Phone: [phone] Serum or plasma estradiol (E 2) measurement (mass/volume)on 05-10-2023 E2 [Mass/Vol] 98.9 pg/mL . [facility] Comment on above: Adult Female Range F ollicular phase 12.5 - 166.0 Ovulation phase 85.8 - 498.0 Luteal phase 43.8 - 211.0 Postmenopausal <6.0 - 54.7 1st trimester 215.0 - >4300.0Roche ECLIA methodology Serum or plasma insulin mariam urement (units/volume)on 05-10-2023 Insulin Qn 7.0 u[iU]/mL 2.6-24.9 [facility] Comment on above: Performed at: [employer] [id number] [place], [place] [id number] Director: Theron Roblero PhD, Phone: [phone] Serum or plasma progesterone measurement (mass/volume)on 05-10-2023 Progesterone [Mass/Vol] 0.1 ng/mL . [facility] Comment on above: Follicular phase 0.1 - 0.9 Luteal phase 1.8 - 23.9 Ovulation phase 0.1 - 12.0 First trimester 11.0 - 44.3 Second trimester 25.4 - 83.3 Third trimester 58.7 - 214.0 Postmenopausal 0.0 - 0.1Performed at: [employer] [address] [place], [place] [id number] Director: Theron Roblero PhD, Phone: [phone] Serum or plasma thyroperoxid ase antibody assay (units/volume)on 05-10-2023 TPO Ab Qn 11 [IU]/mL 0-34 [facility] Thyroglobulin [Mass/volume] in Serum or Plasmaon 05-10-2023 Thyroglobulin [Mass/Vol] <1.0 [IU]/mL 0.0-0.9 [facility] Comment on above: Thyroglobulin Antibo dy measured by [employer]MethodologyPerformed at: [employer] [place], [place] [id number] Director: Theron Roblero PhD, Phone: [phone] XR LUMBAR SPINE AP, LATERAL, FLEXION AND [...] Yung Perry on 05/05/2023 1:28 PM Normal [facility] Coding Summaryon 03-20-2023 Coding Summary HTMLBase 64 IlztpadnDMo2lCf+PGhlYWQ+ WM3BCZAqN38cfELesA3eH3JV TElOSywgQVBQTElOSyIgbmFt MU3hqMZsKWUw IC8+SB8pOBUaDvdhlVEtc4K5 vYL0Z18pjx0gCDdweQE2AZZn ZcZmvixpb3kbnXe9FUxfBthz OyBt ZNPpuH00GMC2rH39Py88tETv aFEqy5vgyMi0GtLdTCKhNHT9 uCqvJBhea3VvHTWdE43kaPVe c2U6 KAOrvObjdYHhEzUceWS2eF8j XSyjowlez1avaqlzHsz6cb00 bKWzf5J4kBA8D6LisfT4SJMk bGQg KykdeIPJbM1jgfslm7zmivwr MtBcHWIqCFx3YCu9ARKpfEtt PdQnIZ01WSD8FLUeboYsY9Lz LWFs bDuuPcA3q0D3Ug6SY0TONjch L3REJXFIGHvzlMC+EB38eu07 Z4RrNllsOvu8ILQnPIB1zXX3 aD0n AONuXScdn9O7nVR8S6JobwOz ig1lt2pyXZIcABewL82hiNVp c6K6CGKgiKK2ZWYzcVcxXuNf aG93 Oyc+FXPtaTyag4VzTrtvo7uk r4adnCm7MmrqTLMayuKhvTtz JLF8x8WxVm5oVTNnuKA1uIB7 aD0i NoFnNqK4GVzzJ681SyJfnMKa EcxxM88lI7WnoRG+PHRyPjx0 VOHasVfpTO0nP0DgRNAfpykh bGVm tSglOQ4gBBYvgfflHDVhpY3z PVTiG6h4KzMzCvG3EVrrO1Td VYGwzuzvIv54yA3nEmVoAzN6 MGlu N2JotjJ3GYUtzYPgMEagNNG8 C38uf8D4YUKlCLIyAFQ4jEO7 oU9gaDiavqtxiHKeiXzgxkLn dGlj XRsjGOziY863RRClxBmlHeSx ZGluZyBEYXRlOiAgMTIvMTgv MjAyMzwvdGQ+MBAoNFC9mMve PSAn kVBxHPwaQd8ckRiebIboNG8y DDIxtiopPYYvoU2xJDHpuBGg jDfmLF8zCJRherazn283DgHz MHB0 TBDhwGRmS9TajH5ePwDhYMJd OEMnZ9TshTXkPGxeJ468NWcj McM8LNKytaRyV7VxAPMrlUay OiB0 h5U3Ze1Fr6GhsipvM6DnmBHr XlAyYaorQGl2C0WkZiitkIO+ XY05BGMlBM90BNo0UJT2tHyj PSdi DBXnZ7GtzQ4fLvZpERVgPEVa Oyc+PHRhYmxlIHdpZHRoPScx NQVqBkQywEdcAS2hGv4qILUc LWNv qJuapLCsSaWbj9beKDMbOQjk DM3nxFdaF4DliNN1QETrs7d3 Hf67N59wY3CqzBZ+PGNvbCB3 aWR0 uE3gJbKqYoC8YLbgQ421GgWg rNSaEmsrc1xjs6rglXo7DuY8 JCXbybAkwPmyMYO6h0CgRe40 Y29s IHdpZHRoPSIxNSUiIHZhbGln hy1xgD5cVy4+UADkrNK1hKV6 sL4cRuPiUiE0SQfbO383AiIi cCIv Dawri7pms6zrnZl7JvUuMOHo kkCyvAuqFRV2l5HaWj43S2Bb aSznw4IrKad0tj16bOPea4V1 bGU9 D1UtCZOgxopcsPNhvEhoHR2y MCCmemuyXQZitS7yFFCdD7h0 XeUfZrM9ZVvsE8AdmrY6ASNm bGQg QGCtdGLUaC9jwwwvf8ggfpft EhRtDODcOCz9BSi7ZESxyGof EpDvNPM6ZdY7HDY4gIUdcE9a bGln wtrpiV5eWbf+KBP4uFCmcQJC NN0wCjuptWL+XWMoYLN6dYai IQxiDDVzyM7mEYHrE7w7AzLm LjA1 MYqdX3BxviQ4WQFkyREjTEBz qZOMuY1jsklzb5yhovzkPxXl KUVeZOt6DYc5AFNouDjqMdFh ZWZ0 MbI4FJV7hHLrqU0miRnsecwb pC4qIyj+VtqisDijWAR6SKp4 T1MnVhh9QXUskHduKS9pyBTu ZGlu Sw3ieUvhjUfgMV4wYSTvboxo c234GqDme6ibJAPieMGaEHyc LHQ1A82so9F0FGBkFDQvBCB5 dGV4 uN8qtZylyhczuXCwwGhfwvAs sBchSSybNAzbY817XBYitRsy HsOqJRv7G5WrIsk4RQBilFgp ZT0n wADqWMvyNn5mpPfyuEpyVS4l LLPromhpe211BzOxg9qsUETq uOLdQUodDDS5W37qt5C0FQPz MDAw XRB7hOO2zS9azQdxxrkjyEHl oOuablXjlDncBXjmZRumA907 TONenLmvKdMatAr7B5IbRsr4 ZCBz aYtqQU0kzLXpOKliKv2gzDzi uOeoHK2uTPRnigazq711WsCn u5biQOQcyUEtUAnlYQY1N34d b3I6 FXNtUMAaFRP9oEQ7rJ8bjOqo bjogbGVmdDsgdmVydGljYWwt VHrgF536YRUjyBwwYvSsbOnz bnQg XBdrIYd2B8CuGhtrgJC+PC90 XJPmKL32eXIsgNJkt4amcOg6 QdVtEFKsYRV7aDkmBAfcq8Nu ZXIt G16ozUTgj4V1ZXWihXdicXLn VuLgsCA0zD9zLYxdhshgh2sk frpaEcdrr7vuyb14fC53N24f IHdp PSAzBHOgHASdXPAfoCsrea5l vE3qIm0+PCEjhMZ4wDO7tM5l XLSeBrF3SBlgF347DmFsmOJh Pjxj s1sdb0lzsRl2MiA2GOHhpwJz cFjgUUP8y6IzMp99T49jZSjf VEMdJEHsBJSiRTKszTkqvo8u dG9w Ii8+PNCtbFN6cHG6sR3tCxUj TcP1WNleG832YwZenTJcApva Q89lP9UwmON+LVVgMmt9JPLt dHls WI2xjMEbYWheDv4uFWR2HhVi NxPhIDimF7XzNHMsurfmxmbz tRN1GHEqZOKhnW81Xr5uzIvd MTBw sZQLbF3vthzgp9yqsaylAuJw YNKxTAp8DNs5ZWGysEeoGyNy JFI7TvW9QTI5uUYahA1qoIka bjog iJ3eG6VdDVBvxlqyVx36pH6e IyWzKvG3BZguAdf+Z57VZ2aO LCBBTUFOREEgREFXTjwvdGQ+ PHRk BFB5xUmrKCekFDOkxU3nLRUu V3l0QfGiRyD3ONuyN2DzMQGl ybmtGt95eF9hRsNmEtI5SSsr O2Zv qvI6SAMjvGGySMeyAJL9N34n m0T5IWDmONHhEVU1nQA5aK8c bGlnbjogbGVmdDsgdmVydGlj YWwt VRyrS221TRTtpIpfToD0WkXh LeA9KJP5D2RtQxd6OYIqzCgz XB6apFYrGWrdAx1zyCwouLvc MC4w HCYtgkkjWQUlmC8eEBIcmKTd nGstOT1nGQBijheeg822GwYq JVN3SBEfzECtL0LeeO8aAkIx MDAw MBJgF7DlcOJtUIueX896QBjy RsN2KRZplfHrM8ZpGCNfaFzg FuO0s2P0Qk82EHAEHNCildnr dGQ+ CQDdLVT5lSisFSxbWJQioN5l HIGgB3j4SaCrDdD1IMtzZ2Vj FVEzqshnOb86fP1eFdVyMmC1 MGlu B4IrdbQ7WCDaqXOiAKqkBWJ8 K11gq1C1JLSfTQYoUTA3pTZ5 yD4afRjsdbgprCBtvCdwxhXk dGlj ONkyTHzgF608EMZxcDtnGsSZ TUFMRTwvdGQ+PQUxTCL4qJmy STwxEGPsaY5hCXLnN0p0GtIa LjA1 KVcfT8WjFYHscxqcUl82rU6l MgSvHaW1LInmQ8NsseY0FJNj iFYhJVdaDWH6U39gg0U0PDOm MDAw IYB8jXQ9kL0hgWhvburnuAMt xWventQwrZvcHCpwEZvkJ106 PDBxrSesLl6DBD55AW47T7Ao Pjwv dGFibGU+PHRhYmxlIHdpZHRo ZOtqBITtFgYrzDrsNV4tPc2n LXIbSQWsaXmeeYArZmClx9vj YXBz JJmuHR3zdAgbG5XdkJO5SENe i5c2Bo54N08lH9HlqYP+PGNv cLN4kZP4pF4vMfLmNqA6WFkp Z249 SjYjzFFtFfzbw6ank2cbvBo4 MlPiRCNvopScrTesALN4t6Bc Hh18G00nRNmdAXTpHCAkEGSh IHZh wNwytd1reL1sQk7+PGNvbCB3 eEI4pL5uTdDlMkM7AJpsE618 QoTulMMmYzyoG64uU1UcsEL+ PHRy Ply6BGOfoOjlVI2nfZLzFVpk Pn5rDFN2VqBdCfPgYRbxR6Ch RNGppdnnbvjagAA1RESoCABt aW47 Vv8hpEwaNy7uZBXyOOL1UWFo fQVpG1SriW1jFyEuLBCwWXYv P4IqvEDjRZjfJ959QHgiHrQ5 IHZl egFpR8ZzDYQaqLjgXnW4p7F9 Ft8HiVwgkSQmWG4tCbVmUQm6 D3MrXbz4YVXfvAolOE9knZNa ZGlu Zf7fxIpgxYomFB2pWYOtmnsr o434LbNlz0vdMXXytQIcROpp MCG9N74yu6Z7GLGnLNHnSFS7 dGV4 lX5yfUbubcacfHVjoAnyujEr vNziZRfpEXwoR385QJTqhDgq MzMBIzq7T3SqPmr7WKTraCtt ZT0n zARsIUklVx9ggUdzrQyfYG3m WEMlpieer730CwVwj2tdSQJi fPFjRCzbWHV4O53ch9P0LEQx MDAw XWR0wVN4qP4rsYirjitxsLJy mJvmuyXrqSfwDVmqCVdkU170 KHOabWtwCz0NIht5U7SsZfw4 ZCBz tEzoUV3pkRWrXFojGa5mdMfl iQpgKE2rNTFdrlvsv203OiQh [id number] bjogbGVmdDsgdmVydGljYWwt [id number] Ojwv [id number] [id number] YXBz ZTo (more content not included)... Normal [facility] ED Clinical Summaryon 2022 ED Clinical Summary [facility] ? Urgent Care [address] [place], [place] [id number] Clinical Summary PERSON INFORMATION Name: KARUNA DUMONT Age: 42 Years Sex: FEMALE : 1980 MRN: Acct#: Visit Reason: UC - Finger/Thumb Injury; RT RING FINGER INJURY Arrival: 03/09/2023 10:15:32 Discharge: 03/09/2023 12:03:00 LOS: 000 01:48 Check In: 03/09/2023 10:15:32 Checkout: 03/09/2023 12:03:00 Address: [address] [facility] [address] PCP: Johnathon Winter MD PROVIDER INFORMATION Provider [...] Instructions: Mallet Finger Follow-Up: With: Address: When: VETO YUNG Hart DO [address] [address] Within 3 to 5 days [...] verbalizes understanding of instructions given Comment: Normal [facility] ED Patient Summaryon 023 ED Patient Summary [facility] ? Urgent Care [address] [place] [address] [id number] PATIENT DISCHARGE INSTRUCTIONS Patient Information Name: KARUNA DUMONT Age: 42 Years Date of : 1980 Reason For Visit: UC - Finger/Thumb Injury; RT RING FINGER INJURY Arrival Time: 03/09/2023 10:15:32 Primary Care Physician: Laura SÁNCHEZ, Johnathon Thompson Attending Physician: Sanchez John Comment: Patient Education With: Address: When: YUNG LAWS DO [address] [address] Within 3 to 5 days Comments: Diagnosis [...] or cold (more content not included)... Normal [facility] Urgent Care [place] 023 Urgent Care Record [facility] ? 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 It is important for you to follow up with a doctor, nurse practitioner, or physician?s nurse assistant for ongoing care. If your symptoms [...] so we can reach you if necessary. [facility] Urgent [facility] has provided you with a complete list of medications post discharge. Please inform your primary mill roller/provider of your visit and for further instruction [...] of your st (more content not included)... [facility] XR Finger Righton 03-09-2023 XR Finger [...] MD 03/09/23 11:56 a Technologist: Vannesa DANGELO [facility] No Panel Informationon 10-11 No acute bony abnormalities are noted [facility] EXAMINATION: THREE XRAY [...] well maintained. Soft tissue swelling. Calcaneal spurs [facility] Miller Romo MD [...] IMPRESSION: No acute bony abnormalities are noted [facility] Radiology Study observation (narrative) [facility] No Panel InformationOrdered By: Miller Romo on 10-11-2022 [facility] Work Phone: XR ANKLE RIGHT (MIN [...] Miller Romo MD 10/11/22 Final result Normal [facility] XR FOOT RIGHT (MIN 3 [...] Miller Romo MD 10/11/22 Final result Normal [facility] PAP ACOG PANEL 2: 30 to 65on 07-16-2022 . . Normal [facility] Comment on above: Result Comment: Perf ormed at: WB Performed By: #### [id number] #### [facility] [address] [address] [address] Dang Kirby Age Gdln ACOG Testing 30-65 Normal [facility] Comment on above: Performed By: #### 4 [id number] #### [facility] [address] [address] [address] Dang Kirby DIAGNOSIS: Comment Normal [facility] Comment on above: Result Comment: NEGA TIVE FOR INTRAEPITHELIAL LESION OR MALIGNANCY. THIS SPECIMEN WAS RESCREENED PART OF OUR MEDICAL PSYCHOTHERAPIST PROGRAM. Performed at: WB Performed By: #### [id number] #### [facility] [address] [address] [address] Dang Kirby HPV Aptima Negative Normal Negative [facility] Comment on above: Result Comment: This nucleic acid amplification test detects fourteen high-risk HPV types (16,18,31,33,35,39,45,51,52,56,58,59,66,68) without differentiation. Performed at: =G Performed By: #### 4 [id number] #### [facility] [address] [address] [address] Dang Kirby HPV Genotype Reflex Comment Normal [facility] Comment on above: Result Comment: Crit eria not met, HPV Genotype not performed. Performed at: WB Performed By: #### 4 [id number] #### [facility] [address] [address] [address] Dang Kirby Methodology: Comment Normal [facility] Comment on above: Result Comment: This liquid based ThinPrep(R) pap test was screened with the use of an image guided system. Performed at: WB Performed By: #### [id number] #### [facility] [address] [place] [address] Dr. Dang Kirby Note: Comment Normal [facility] Comment on above: Result Comment: The Pap smear is a screening test designed to aid in the detection of premalignant and malignant conditions of the uterine cervix. It is not a diagnostic procedure and should not be used as the sole means of detecting cervical cancer. Both false-positive and false-negative reports do occur. . Performed at: WB Performed By: #### [id number] #### [facility] [address] [place] [address] Dr. Dang Kirby Performed by: Comment Normal [facility] Comment on above: Result Comment: Flavia Stanford, Telemarketing Representative (ASCP) Performed at: WB Performed By: #### 4 [id number] #### [facility] [address] [place] [address] Dr. Dang Kirby QC reviewed by: Comment Normal [facility] Comment on above: Result Comment: Valentino Victor, Telemarketing Representative Performed at: WB Performed By: #### 4 [id number] #### [facility] [address] [place] [address] Dr. Dang Kirby Specimen adequacy: Comment Normal [facility] Comment on above: Result Comment: Sati sfactory for evaluation. No endocervical component is identified. Performed at: WB Performed By: #### 4 [id number] #### [facility] [address] [place] [address] Dr. Dang Kirby MG MAMM DIAGNOSTIC 3D RAMA CA Don 04-29-2022 MG MAMM DIAGNOSTIC 3D RAMA CAD Patient: KARUNA DUMONT Exam Date: 04/29/2022 : 1980 Gender:F Ordering : DR SANJEEV LOPEZ . Admission #: [id number] Family : Order #: [id number] CLICK HERE TO VIEW EXAM RADIOLOGY REPORT PROCEDURE: MAMMOGRAM DIAGNOSTIC 3D BILATERAL CAD, 04/29/2022, 10:05 ULTRASOUND BREAST RIGHT LIMITED, 04/29/2022, 11:04 COMPARISON: None. INDICATIONS: Pain of breast Calculator Name NCI Breast Cancer Risk Assessment Tool 5 Year Breast Cancer Risk Not Reported. Lifetime Breast Cancer Risk Not Reported. Personal Breast Cancer No Personal Ovarian Cancer No Treatments None Family Cancers None LOCATION: [facility] BREAST COMPOSITION: Scattered areas fibroglandular density. FINDINGS: [...] M.D. on 04/29/2022 at 14:55 Normal [facility] US BREAST RIGHT LIMITEDon US BREAST RIGHT LIMITED Patient: KARUNA DUMONT Exam Date: 04/29/2022 : 1980 Gender:F Ordering : DR SANJEEV LOPEZ . Admission #: [id number] Family : Order #: [id number] CLICK HERE TO VIEW EXAM RADIOLOGY REPORT PROCEDURE: MAMMOGRAM DIAGNOSTIC 3D BILATERAL CAD, 04/29/2022, 10:05 ULTRASOUND BREAST RIGHT LIMITED, 04/29/2022, 11:04 COMPARISON: None. INDICATIONS: Pain of breast Calculator Name NCI Breast Cancer Risk Assessment Tool 5 Year Breast Cancer Risk Not Reported. Lifetime Breast Cancer Risk Not Reported. Personal Breast Cancer No Personal Ovarian Cancer No Treatments None Family Cancers None LOCATION: [facility] BREAST COMPOSITION: Scattered areas fibroglandular density. FINDINGS: [...] M.D. on 04/29/2022 at 14:55 [address] [facility] [address] CERVICAL SPINE WO CONTRAS Ton 02-16-2022 [...] Oziel Fox MD 02/16/22 Final result Normal [facility] XR CLAVICLE LEFTon XR CLAVICLE LEFT [...] Miller Romo MD 02/16/22 Final result Normal [facility] XR SHOULDER LEFT (MIN 2 [...] Emil Flores MD 02/16/22 Final result Normal [facility] CBC with Auto Differentialon 01-03-2022 Absolute Eos # 0.10 [facility] Absolute Lymph # 1.60 [facility] Absolute [place] # 0.40 [facility] Basophils (Bld) [#/Vol] 0.00 10*3/uL [facility] Basophils/100 WBC (Bld) 1 % 0 - 2 % B ON [facility] Eosinophils/100 WBC (Bld) 2 % 1 - 4 % [facility] Hematocrit (Bld) [Volume fraction] 46.0 % 36 - 46 % [facility] Hemoglobin (Bld) [Mass/Vol] 15.4 g/dL 12 - 16 g/dL [facility] Interpretation and review of laboratory results Abnormal [facility] Lymphocytes/100 WBC (Bld) 29 % 24 - 44 % [facility] MCH (RBC) [Entitic mass] 28.6 pg 26 - 34 pg [facility] MCHC (RBC) [Mass/Vol] 33.4 g/dL 31 - 3 7 g/dL [facility] MCV (RBC) [Entitic vol] 85.9 fL 80 - 100 fL [facility] Monocytes/100 WBC (Bld) 8 % 2 - 11 % B ON [facility] Platelet distribution width (Bld) [Ratio] 14.1 % 12.5 - 15.4 % [facility] Platelet mean volume (Bld) [Entitic vol] 7.6 fL 6 - 12 fL [facility] Platelets (Bld) [#/Vol] 277 10*3/uL [facility] RBC (Bld) [#/Vol] 5.36 10*6/uL High 4 - 5.2 m/uL [facility] Segmented neutrophils/100 WBC (Bld) 60 % 36 - 66 % [facility] Segs Absolute 3.40 [facility] WBC (Bld) [#/Vol] 5.6 10*3/uL [facility] CBC with Diffon 01-03-2022 Abs. Basophil 0.00 k/uL Normal 0.0-0.2 [facility] Comment on above: Performed By: #### H CG, LIP, MG, CDP, CMPX #### [facility] [address] [place] [address] Seat Cover Cutter: Estevan Corcoran MD Abs.Neutrophil (Seg) 3.40 k/uL Normal 1.8-7.7 [facility] Comment on above: Performed By: #### H CG, LIP, MG, CDP, CMPX #### [place] [address] Seat Cover Cutter: Estevan Corcoran MD Basophils/100 WBC (Bld) 1 % Normal 0-2 [facility] Comment on above: Performed By: #### H CG, LIP, MG, CDP, CMPX #### [place] [address] Seat Cover Cutter: Estevan Corcoran MD Eosinophils (Bld) [#/Vol] 0.10 10*3/uL Normal 0.0-0.4 [facility] Comment on above: Performed By: #### H CG, LIP, MG, CDP, CMPX #### [place] [address] Seat Cover Cutter: Estevan Corcoran MD Eosinophils/100 WBC (Bld) 2 % Normal 1-4 [facility] Comment on above: Performed By: #### H CG, LIP, MG, CDP, CMPX #### [facility] [id number] [place] [address] Seat Cover Cutter: Estevan Corcoran MD Erythrocyte distribution width (RBC) [Ratio] 14.1 % Normal 12.5-15.4 [facility] Comment on above: Performed By: #### H CG, LIP, MG, CDP, CMPX #### [place] [address] Seat Cover Cutter: Estevan Corcoran MD Hematocrit (Bld) [Volume fraction] 46.0 % Normal 36-46 [facility] Comment on above: Performed By: #### H CG, LIP, MG, CDP, CMPX #### [place] [address] Seat Cover Cutter: Estevan Corcoran MD Hemoglobin (Bld) [Mass/Vol] 15.4 g/dL Normal 12.0-16.0 [facility] Comment on above: Performed By: #### H CG, LIP, MG, CDP, CMPX #### [place] [address] Seat Cover Cutter: Estevan Corcoran MD Lymphocytes (Bld) [#/Vol] 1.60 10*3/uL Normal 1.0-4.8 [facility] Comment on above: Performed By: #### H CG, LIP, MG, CDP, CMPX #### [place] [address] Seat Cover Cutter: Estevan Corcoran MD Lymphocytes/100 WBC (Bld) 29 % Normal 24-44 [facility] Comment on above: Performed By: #### H CG, LIP, MG, CDP, CMPX #### [place] [address] Seat Cover Cutter: Estevan Corcoran MD MCH (RBC) [Entitic mass] 28.6 pg Normal 26-34 [facility] Comment on above: Performed By: #### H CG, LIP, MG, CDP, CMPX #### [place] [address] Seat Cover Cutter: Estevan Corcoran MD MCHC (RBC) [Mass/Vol] 33.4 g/dL Normal 31-37 [facility] Comment on above: Performed By: #### H CG, LIP, MG, CDP, CMPX #### [place] [address] Seat Cover Cutter: Estevan Corcoran MD MCV (RBC) [Entitic vol] 85.9 fL Normal 80-100 M [facility] Comment on above: Performed By: #### H CG, LIP, MG, CDP, CMPX #### [place] [address] Seat Cover Cutter: Estevan Corcoran MD Monocytes (Bld) [#/Vol] 0.40 10*3/uL Normal 0.1-1.2 [facility] Comment on above: Performed By: #### H CG, LIP, MG, CDP, CMPX #### [place] [address] Seat Cover Cutter: Estevan Corcoran MD Monocytes/100 WBC (Bld) 8 % Normal 2-11 M [facility] Comment on above: Performed By: #### H CG, LIP, MG, CDP, CMPX #### [place] [address] Seat Cover Cutter: Estevan Corcoran MD Neutrophil (Seg) 60 % Normal 36-66 [facility] Comment on above: Performed By: #### H CG, LIP, MG, CDP, CMPX #### [place] [id number] Seat Cover Cutter: Estevan Corcoran MD Platelet mean volume (Bld) [Entitic vol] 7.6 fL Normal 6.0-12.0 [facility] Comment on above: Performed By: #### H CG, LIP, MG, CDP, CMPX #### [id number] [id number] Seat Cover Cutter: Estevan Corcoran MD Platelets (Bld) [#/Vol] 277 10*3/uL Normal 140-450 [facility] Comment on above: Performed By: #### H CG, LIP, MG, CDP, CMPX #### [id number] [id number] Seat Cover Cutter: Estevan Corcoran MD RBC (Bld) [#/Vol] 5.36 10*6/uL High 4.0-5.2 [facility] Comment on above: Performed By: #### H CG, LIP, MG, CDP, CMPX #### [place] [address] Seat Cover Cutter: Estevan Corcoran MD WBC (Bld) [#/Vol] 5.6 10*3/uL Normal 3.5-11.0 [facility] Comment on above: Performed By: #### H CG, LIP, MG, CDP, CMPX #### [place] [address] Seat Cover Cutter: Estevan Corcoran MD CT ABDOMEN PELVIS W [...] Papito Mishra MD 01/03/22 Final result Normal [facility] CT ABDOMEN PELVIS W IV [...] L5-S1. Mild levoscoliosis of the lumbar spine. [facility] Papito Mishra [...] No clear evidence for small bowel obstruction. [employer] Phone: Radiology Study observation (narrative) GIANA SAVAGE [employer] Phone: CT ABDOMEN PELVIS W IV CONTR AST Additional Contrast? NoneOrdered By: Papito Mishra on 01-03-2022 [employer] Phone: Comp Metabolic Pr/rfx MGon 1 ALT [Catalytic activity/Vol] 28 U/L Normal 5-33 [facility] Comment on above: Performed By: #### H CG, LIP, MG, CDP, CMPX #### [place] [address] Seat Cover Cutter: Estevan Corcoran MD (cont.) [facility] Comment on above: Result Comment: Aver age GFR for 30-39 years old: 107 mL/min/1.73sq m Chronic Kidney Disease: <60 mL/min/1.73sq m Kidney failure: <15 mL/min/1.73sq m eGFR calculated using average adult body mass. Additional eGFR calculator available at: http://www.StumbleUpon/multiple_crcl_2011.htm Performed By: #### H CG, LIP, MG, CDP, CMPX #### [place] [address] Seat Cover Cutter: Estevan Corcoran MD Albumin [Mass/Vol] 4.3 g/dL Normal 3.5-5.2 [facility] Comment on above: Performed By: #### H CG, LIP, MG, CDP, CMPX #### [place] [address] Seat Cover Cutter: Estevan Corcoran MD Albumin/Glob Ratio 1.4 Normal 1.0-2.5 [facility] Comment on above: Performed By: #### H CG, LIP, MG, CDP, CMPX #### [place] [address] Seat Cover Cutter: Estevan Corcoran MD Alkaline Phos 105 U/L High 35-104 [facility] Comment on above: Performed By: #### H CG, LIP, MG, CDP, CMPX #### [place] [address] Seat Cover Cutter: Estevan Corcoran MD Anion gap [Moles/Vol] 13 mmol/L Normal 9-17 [facility] Comment on above: Performed By: #### H CG, LIP, MG, CDP, CMPX #### [place] [address] Seat Cover Cutter: Estevan Corcoran MD AST [Catalytic activity/Vol] 26 U/L Normal <32 [facility] Comment on above: Performed By: #### H CG, LIP, MG, CDP, CMPX #### [place] [address] Seat Cover Cutter: Estevan Corcoran MD Bilirubin [Mass/Vol] 0.3 mg/dL Normal 0.3-1.2 [facility] Comment on above: Performed By: #### H CG, LIP, MG, CDP, CMPX #### [place] [address] Seat Cover Cutter: Estevan Corcoran MD Calcium [Mass/Vol] 8.7 mg/dL Normal 8.6-10.4 [facility] Comment on above: Performed By: #### H CG, LIP, MG, CDP, CMPX #### [place] [address] Seat Cover Cutter: Estevan Corcoran MD Chloride [Moles/Vol] 104 mmol/L Normal 98-107 [facility] Comment on above: Performed By: #### H CG, LIP, MG, CDP, CMPX #### [place] [address] Seat Cover Cutter: Estevan Corcoran MD CO2 [Moles/Vol] 21 mmol/L Normal 20-31 [facility] Comment on above: Performed By: #### H CG, LIP, MG, CDP, CMPX #### [place] [address] Seat Cover Cutter: Estevan Corcoran MD Creatinine [Mass/Vol] 0.60 mg/dL Normal 0.50-0.90 [facility] Comment on above: Performed By: #### H CG, LIP, MG, CDP, CMPX #### [place] [address] Seat Cover Cutter: Estevan Corcoran MD GFR, Amer >60 Normal >60 [facility] Comment on above: Performed By: #### H CG, LIP, MG, CDP, CMPX #### [place] [address] Seat Cover Cutter: Estevan Corcoran MD GFR,non Amer >60 Normal >60 [facility] Comment on above: Performed By: #### H CG, LIP, MG, CDP, CMPX #### [place] [address] Seat Cover Cutter: Estevan Corcoran MD Glucose [Mass/Vol] 105 mg/dL High 70-99 [facility] Comment on above: Performed By: #### H CG, LIP, MG, CDP, CMPX #### [place] [address] Seat Cover Cutter: Estevan Corcoran MD Potassium [Moles/Vol] 3.5 mmol/L Low 3.7-5.3 [facility] Comment on above: Performed By: #### H CG, LIP, MG, CDP, CMPX #### [place] [address] Seat Cover Cutter: Estevan Corcoran MD Protein [Mass/Vol] 7.4 g/dL Normal 6.4-8.3 [facility] Comment on above: Performed By: #### H CG, LIP, MG, CDP, CMPX #### [facility] [address] [address] [id number] Seat Cover Cutter: Estevan Corcoran MD Sodium [Moles/Vol] 138 mmol/L Normal 135-144 [facility] Comment on above: Performed By: #### H CG, LIP, MG, CDP, CMPX #### [address] [address] [id number] [place] [id number] Seat Cover Cutter: Estevan Corcoran MD Urea nitrogen [Mass/Vol] 12 mg/dL Normal 6-20 [facility] Comment on above: Performed By: #### H CG, LIP, MG, CDP, CMPX #### [place] [address] Seat Cover Cutter: Estevan Corcoran MD Comprehensive Metabolic Pane l w/ Reflex to MGon 01-03-2022 Albumin [Mass/Vol] 4.3 g/dL 3.5 - 5.2 g/dL [facility] Albumin/Globulin [Mass ratio] 1.4 {ratio} 1 - 2.5 [facility] ALP (Bld) [Catalytic activity/Vol] 105 U/L High 35 - 104 U/L [facility] ALT [Catalytic activity/Vol] 28 U/L 5 - 33 U/L [facility] Anion gap [Moles/Vol] 13 mmol/L 9 - 17 mmol/L [facility] AST [Catalytic activity/Vol] 26 U/L NINF - 32 U/L [facility] Bilirubin [Mass/Vol] 0.3 mg/dL 0.3 - 1 .2 mg/dL [facility] Calcium [Mass/Vol] 8.7 mg/dL 8.6 - 10. 4 mg/dL [facility] Chloride [Moles/Vol] 104 mmol/L 98 - 10 7 mmol/L [facility] CO2 [Moles/Vol] 21 mmol/L 20 - 31 mmol/L [facility] Creatinine [Mass/Vol] 0.6 mg/dL 0.5 - 0.9 mg/dL [facility] GFR >60 60 - PI NF mL/min [facility] GFR Non- >60 60 - PINF mL/min [facility] GFR/1.73 sq M.predicted MDRD (S/P/Bld) [Vol rate/Area] [facility] Comment on above: Average GFR for 30-3 9 years old: 107 mL/min/1.73sq m Chronic Kidney Disease: <60 mL/min/1.73sq m Kidney failure: <15 mL/min/1.73sq m eGFR calculated using average adult body mass. Additional eGFR calculator available at: http://www.StumbleUpon/multiple_crcl_2011.htm Glucose [Mass/Vol] 105 mg/dL High 70 - 99 mg/dL [facility] Interpretation and review of laboratory results Abnormal [facility] Potassium [Moles/Vol] 3.5 mmol/L Low 3.7 - 5.3 mmol/L [facility] Protein [Mass/Vol] 7.4 g/dL 6.4 - 8.3 g/dL [facility] Sodium [Moles/Vol] 138 mmol/L 135 - 144 mmol/L [facility] Urea nitrogen (BldV) [Mass/Vol] 12 mg/dL 6 - 20 mg/dL [facility] HCG Qualitative, Serumon hCG Qual Negative NEGATIVE [facility] Comment on above: Specimens with hCG l evels near the threshold of the test (25 mIU/mL) may give a negative or indeterminate result. In such cases, another test should be performed with a new specimen in 48-72 hours. If early is suspected clinically in this setting, correlation with quantitative serum b-hCG level is suggested. [employer] has confirmed the use of plasma for this test. This has not been cleared or approved by the U.S. Food and Drug Administration. The FDA has determined that such clearance is not necessary. [facility] HCG Screen, Bloodon 01-04-20 HCG Screen, Blood Negative Normal [facility] Comment on above: Result Comment: Spec imens with hCG levels near the threshold of the test (25 mIU/mL) may give a negative or indeterminate result. In such cases, another test should be performed with a new specimen in 48-72 hours. If early is suspected clinically in this setting, correlation with quantitative serum b-hCG level is suggested. [facility] has confirmed the use of plasma for this test. This has not been cleared or approved by the U.S. Food and Drug Administration. The FDA has determined that such clearance is not necessary. Performed By: #### H CG, LIP, MG, CDP, CMPX #### [address] [address] Seat Cover Cutter: Estevan Corcoran MD Lipaseon 01-03-2022 Lipase [Catalytic activity/Vol] 20 U/L Normal 13-60 [facility] Comment on above: Performed By: #### H CG, LIP, MG, CDP, CMPX #### [address] [address] Seat Cover Cutter: Estevan Corcoran MD Lipase [Catalytic activity/Vol] 20 U/L 13 - 60 U/L [facility] Magnesiumon 01-03-2022 Magnesium [Mass/Vol] 2.1 mg/dL Normal 1.6-2.6 [facility] Comment on above: Performed By: #### H CG, LIP, MG, CDP, CMPX #### [address] [address] Seat Cover Cutter: Estevan Corcoran MD Magnesium [Mass/Vol] 2.1 mg/dL 1.6 - 2 .6 mg/dL [facility] Microscopic Urinalysison Bacteria, UA MANY Abnormal None [facility] Epithelial Cells UA TOO NUMEROUS TO COUNT [facility] Interpretation and review of laboratory results Abnormal [facility] Other Observations UA Utilizing a urinal ysis as the only screening method to exclude a potential uropathogen can be unreliable in many patient populations. Rapid screening tests are less sensitive than culture and if UTI is a clinical possibility, culture should be considered despite a negative urinalysis. Abnormal NOT REQ. [facility] RBC, UA 2 TO 5 [facility] WBC, UA 2 TO 5 [facility] UA w/Reflex Cultureon 2021 Bilirubin, SemiQt,Ur Negative Normal NEG [facility] Comment on above: Performed By: #### U AX, UMICAO ####[address] [id number] Lab Director: Estevan Corcoran MD Blood, Urine LARGE Abnormal NEG [facility] Comment on above: Performed By: #### U AX, UMICAO ####[address] [address] Lab Director: Estevan Corcoran MD Clarity (U) Cloudy Abnormal CLEAR [facility] Comment on above: Result Comment: FOUL ODOR Performed By: #### U AX, UMICAO ####[address] [address] Lab Director: Estevan Corcoran MD Color (U) Yellow Normal YEL [facility] Comment on above: Performed By: #### U AX, UMICAO ####[address] [id number] Lab Director: Estevan Corcoran MD Glucose Ql (U) Negative Normal NEG [facility] Comment on above: Performed By: #### U AX, UMICAO ####[place] [id number] Lab Director: Estevan Corcoran MD Ketones Ql (U) Negative Normal NEG [facility] Comment on above: Performed By: #### U AX, UMICAO ####[place] [address] Lab Director: Estevan Corcoran MD Leukocyte esterase Test strip Ql (U) Negative Normal NEG [facility] Comment on above: Performed By: #### U AX, UMICAO ####[place] [address] Lab Director: Estevan Corcoran MD Nitrite,Ur Negative Normal NEG [facility] Comment on above: Performed By: #### U AX, UMICAO ####[place] [address] Lab Director: Estevan Corcoran MD PH,Ur 6.0 Normal 5.0-8.0 [facility] Comment on above: Performed By: #### U AX, UMICAO ####[place] [address] Lab Director: Estevan Corcoran MD Protein Ql (U) Negative Normal NEG [facility] Comment on above: Performed By: #### U AX, UMICAO ####[place] [address] Lab Director: Estevan Corcoran MD Spec. [place],Ur 1.108 High 1.005-1.03 0 [facility] Comment on above: Result Comment: POST IV CONTRAST Performed By: #### U AX, UMICAO ####[place] [address] Lab Director: Estevan Corcoran MD Urobilinogen,Ur Normal Normal NORM [facility] Comment on above: Performed By: #### U GEORGES GILMAN ####[address] [address] lab Director: Estevan Corcoran MD Urinalysis with Reflex to Cu ltureon 01-03-2022 Bilirubin Urine Negative NEGATIVE [facility] Color, UA Yellow Yellow [facility] Glucose, Ur Negative NEGATIVE [facility] Interpretation and review of laboratory results Abnormal [facility] Ketones Ql (U) Negative NEGATIVE [facility] Leukocyte esterase Test strip Ql (U) Negative NEGATIVE [facility] Nitrite, Urine Negative NEGATIVE [facility] pH, UA 6.0 5 - 8 [facility] Protein, UA Negative NEGATIVE [facility] Specific [place], UA 1.108 High 1.005 - 1.03 [facility] Comment on above: POST IV CONTRAST Turbidity UA Cloudy Abnormal Clear [facility] Comment on above: FOUL ODOR Urine Hgb LARGE Abnormal NEGATIVE [facility] Urobilinogen, Urine Normal Normal [facility] Urinalysis,Microon 2 Bacteria MANY Abnormal NONE [facility] Comment on above: Performed By: #### U GEORGES GILMAN ####[address] [address] lab Director: Estevan Corcoran MD Epithelial cells LM Ql (Urine sed) TOO NUMEROUS TO COUNT Normal 0-5 [facility] Comment on above: Performed By: #### U GEORGES GILMAN ####[address] [address] lab Director: Estevan Corcoran MD Other Observations Utilizing a urinalys is as the only screening method to exclude a potential Abnormal NREQ [facility] Comment on above: Result Comment: urop athogen can be unreliable in many patient populations. Rapid screening tests are less sensitive than culture and if UTI is a clinical possibility, culture should be considered despite a negative urinalysis. Performed By: #### U AX, UMICAO ####[address] [id number] Lab Director: Estevan Corcoran MD Urine RBC's 2 TO 5 Normal 0-2 [facility] Comment on above: Performed By: #### U AX, UMICAO ####[address] [id number] lab Director: Estevan Corcoran MD Urine WBC's 2 TO 5 Normal 0-5 [facility] Comment on above: Performed By: #### U AX, UMICAO ####[address] [address] lab Director: Estevan Corcoran MD CT LUMBAR [...] leg pain. Follow-up MRI may be helpful. [facility] RIS CONSOLIDATED EXAMINATION: CT OF THE LUMBAR [...] SOFT TISSUES/RETROPERITONEUM: No paraspinal mass is seen. PN RIS CONSOLIDATED Boyd Beatty MD - 08/19/2021 [...] leg pain. Follow-up MRI may be helpful. [facility]ly Work Phone: Radiology Study observation (narrative) [employer] [facility] Work Phone: CT LUMBAR SPINE WO CONTRASTO rdered By: Boyd Beatty on 08-19-2021 Jimmy Fairly Work Phone: Vital Signs Date Time Vital Sign Value Performing Clinician Elena melton 06-12-2023 10:05-0400 Body height 165.1 cm [facility]it [facility] 06-12-2023 10:05-0400 Body mass index (BMI) [Ratio] 38.94 kg/m2 Rohit Metzger MD Work Phone: [employer] 06-12-2023 10:05-0400 Body weight 106.14 kg Rohit [facility]zger MD [facility] 05-16-2023 13:48-0500 Body height 165.1 cm Rohit [facility]zger MD [facility] 05-16-2023 13:48-0500 Body mass index (BMI) [Ratio] 38.94 kg/m2 Rohit Metzger MD Work Phone: [employer] 05-16-2023 13:48-0500 Body weight 106.14 kg Rohit Metzger MD [facility] 01-02-2023 10:00-0400 Body height 162.56 cm Johnathon Winter Other [employer] Other 10-02-2023 10:00-0400 Body mass index (BMI) [Ratio] 42.91 kg/m2 Johnathon Winter Other [employer] Other 01-02-2023 10:00-0400 Body weight 113.4 kg Johnathon Winter Other [employer] Other 01-02-2023 10:00-0400 Diastolic blood pressure 82 mm[Hg] Johnathon Winter Other [employer] Other 01-02-2023 10:00-0400 Systolic blood pressure 126 mm[Hg] Johnathon Winter Other [employer] Other 2022 11:00-0400 Body height 162.56 cm Johnathon Winter Other [employer] Other 2022 11:00-0400 Body mass index (BMI) [Ratio] 44.56 kg/m2 Johnathon Winter Other [employer] Other 2022 11:00-0400 Body weight 117.75 kg Johnathon Winter Other [employer] Other 2022 11:00-0400 Diastolic blood pressure 101 mm[Hg] Johnathon Winter Other [employer] Other 2022 11:00-0400 SaO2% (BldA) [Mass fraction] 100 % Johnathon Winter Other [employer] Other 2022 11:00-0400 Systolic blood pressure 138 mm[Hg] Johnathon Winter Other [employer] Other 10-11-2022 18:45-0400 Body height 165.1 cm Roxie Garcia MD Work Phone: [employer] 10-11-2022 18:45-0400 Body mass index (BMI) [Ratio] 43.93 kg/m2 Roxie Garcia MD Work Phone: [facility] [employer] 10-11-2022 18:45-0400 Body temperature 99 [degF] Roxie Garcia MD Work Phone: [facility] [employer] 10-11-2022 18:45-0400 Body weight 119.75 kg Roxie Garcia MD Work Phone: [facility] [employer] 10-11-2022 18:45-0400 Diastolic blood pressure 108 mm[Hg] Roxie Garcia MD Work Phone: [facility] [employer] 10-11-2022 18:45-0400 Heart rate 87 /min Roxie Garcia MD Work Phone: [facility] [employer] 10-11-2022 18:45-0400 Respiratory rate 16 /min Roxie Garcia MD Work Phone: [facility] [employer] 10-11-2022 18:45-0400 SaO2% (BldA) [Mass fraction] 98 % Roxie Garcia MD Work Phone: [facility] [employer] 10-11-2022 18:45-0400 Systolic blood pressure 160 mm[Hg] Roxie Garcia MD Work Phone: [employer] 01-03-2022 13:54-0400 Diastolic blood pressure 95 mm[Hg] Teo Thomas DO [employer] 01-03-2022 13:54-0400 Heart rate 61 /min Teo Galeanofman DO [employer] 01-03-2022 13:54-0400 SaO2% (BldA) [Mass fraction] 100 % Teo Thomas DO [employer] 01-03-2022 13:54-0400 Systolic blood pressure 142 mm[Hg] Teo Thomas DO [employer] 01-03-2022 11:46-0400 Body height 165.1 cm Teo Morean DO [employer] 01-03-2022 11:46-0400 Body mass index (BMI) [Ratio] 44.1 kg/m2 Teo Agueroan DO [employer] [facility] [employer] 01-03-2022 11:46-0400 Body temperature 97.7 [degF] Teo Agueroan DO [employer] [facility] [facility] [employer] 01-03-2022 11:46-0400 Body weight 120.2 kg Teo Thomas DO [facility] [employer] 01-03-2022 11:46-0400 Respiratory rate 16 /min Teo Froylanfman DO [facility] 08-19-2021 18:03-0400 Diastolic blood pressure 98 mm[Hg] Radha Sanders MD Work Phone: [facility] 08-19-2021 18:03-0400 Heart rate 92 /min Radha Sanders MD Work Phone: [facility] 08-19-2021 18:03-0400 Respiratory rate 16 /min Radha Sanders MD Work Phone: [facility] 08-19-2021 18:03-0400 SaO2% (BldA) [Mass fraction] 96 % Radha Sanders MD Work Phone: [facility] 08-19-2021 18:03-0400 Systolic blood pressure 145 mm[Hg] Radha Sanders MD Work Phone: [facility] 08-19-2021 16:28-0400 Body height 165.1 cm Radha Sanders MD Work Phone: [facility] 08-19-2021 16:28-0400 Body mass index (BMI) [Ratio] 45.76 kg/m2 Radha Sanders MD Work Phone: [facility] 08-19-2021 16:28-0400 Body temperature 98.6 [degF] Radha Sanders MD Work Phone: [facility] 08-19-2021 16:28-0400 Body weight 124.74 kg Radha Sanders MD Work Phone: [facility] Encounters Encounter Date Encounter Type Care Provider Facility Start: 11-29-2023 End: 11-29-2023 ambulatory SANJEEV GEORGINA Not Available Start: 11-22-2023 End: 11-22-2023 ambulatory MARTÍN ORTEGA [facility] Start: 11-20-2023 End: 11-20-2023 ambulatory Christiano Rivera MD Facility:[facility] Start: 11-13-2023 End: 11-13-2023 ambulatory Christiano Rivera MD Facility:[facility] Start: 08-23-2023 End: 08-23-2023 ambulatory KELI Resendez Facility:[facility] Start: 08-02-2023 End: 08-02-2023 ambulatory ROBERT URRUTIA Not Available Start: 07-31-2023 End: 07-31-2023 ambulatory Bhavin Montgomery MD Facility:[facility] Start: 07-19-2023 End: 07-19-2023 ambulatory SANJEEV GEORGINA Not Available Start: 07-17-2023 End: 07-17-2023 ambulatory Bhavin Montgomery MD Facility:[facility] Start: 06-26-2023 End: 06-26-2023 ambulatory Bhavin Montgomery MD Facility:[facility] Start: 06-15-2023 End: 06-15-2023 ambulatory SANJEEV GEORGINA Not Available Start: 06-12-2023 End: 06-12-2023 [facility] Comment on above: Lumbar radiculopathy , chronic (Primary Dx); Herniated lumbar intervertebral disc Start: 06-12-2023 End: 06-12-2023 Office outpatient visit 10 minutes Rohit Smith MD [facility] Comment on above: 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) Start: 06-06-[address] [facility] Start: 05-24-2023 Orders Only Reny barlow STOCK HANGER-INTERACTIVE PRODUCER Work Phone: [facility] Comment on above: Herniated lumbar int ervertebral disc (Primary Dx); Lumbar radiculopathy, chronic Start: 05-23-2023 End: 05-23-2023 ambulatory Tee Peterson Facility:[facility] Start: 05-23-2023 End: 05-23-2023 ambulatory MD Tee Peterson Work Phone: [facility] Work Phone: Start: 05-23-2023 End: 05-23-2023 Departed Referred MD Tee Peterson Work Phone: [facility] Start: 05-19-2023 End: 05-19-2023 ambulatory RENY NO [facility] Start: 05-16-2023 End: 05-16-2023 ambulatory ROHIT SMITH V [facility] Start: 05-16-2023 End: 05-16-2023 Office outpatient new 30 minutes Rohit Smith MD Work Phone: [facility] [place] Comment on above: 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); Finger injury, right, initial encounter Start: 05-15-2023 Orders Only Reny barlow STOCK HANGER-INTERACTIVE PRODUCER Work Phone: [facility] Comment on above: Herniated lumbar int ervertebral disc (Primary Dx) Start: 05-10-2023 End: 05-10-2023 ambulatory Johnathon Winter Other [facility] [employer] Other Start: 05-10-2023 Encounter by kriss r loretta Winter [facility] Start: 05-10-2023 Non-patient / Non-visit MD Jones Work Phone: [facility] [employer] Work Phone: Start: 05-04-2023 End: 05-04-2023 Office outpatient visit 10 minutes Oswaldo Dee NP Work Phone: [facility] Comment on above: 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); Pain in finger of right hand Start: 05-04-2023 End: 05-04-2023 ambulatory RENY NO [facility] Start: 05-01-2023 End: 05-01-2023 ambulatory SANJEEV LOPEZ Not Available Start: 04-19-2023 End: 04-19-2023 ambulatory Scottie Lyn Other [employer] Other Start: 04-19-2023 Telephone encounter Scottie Lyn [facility] Start: 04-14-2023 End: 04-14-2023 Orders Only Serina Rodriguez [facility] Comment on above: Back pain, unspecifi ed back location, unspecified back pain laterality, unspecified chronicity (Primary Dx) Start: 04-12-2023 End: 04-12-2023 ambulatory Johnathon Winter Other [employer] Other Start: 04-12-2023 Telephone encounter Johnathon Winter [facility] Start: 04-11-2023 End: 04-11-2023 ambulatory Johnathon Winter Other [employer] Other Start: 04-11-2023 Telephone encounter Johnathon Winter [facility] Start: 04-10-2023 End: 04-10-2023 ambulatory Johnathon Winter Other [employer] Other Start: 04-10-2023 Encounter by kriss Winter [facility] Start: 03-16-2023 End: 03-16-2023 ambulatory OSWALDO DEE Not Available Start: 03-09-2023 End: 03-09-2023 ambulatory Johnathon Winter Facility:[facility] Start: 01-30-2023 End: 01-30-2023 ambulatory Johnathon Winter Other [employer] Other Start: 01-30-2023 Telephone encounter Johnathon Winter [facility] Start: 01-02-2023 End: 01-02-2023 ambulatory Johnathon Winter Other [employer] Other Start: 01-02-2023 Office outpatient vi sit 15 minutes Johnathon Winter [facility] Start: 12-09-2022 End: 12-09-2022 ambulatory Johnathon Winter Other [employer] Other Start: 12-09-2022 Telephone encounter Johnathon Winter [facility] Start: 12-08-2022 End: 12-08-2022 ambulatory Johnathon Winter Other [employer] Other Start: 12-08-2022 Telephone encounter Johnathon Winter [facility] Start: 2022 End: 2022 ambulatory Johnathon Winter Other [employer] Other Start: 2022 Office outpatient ne w 30 minutes Johnathon Winter [facility] Start: 10-11-2022 End: 10-11-2022 Emergency department patient visit JOHNATHON WINTER [facility] Start: 10-11-2022 End: 10-11-2022 Emergency department patient visit Roxie Garcia MD Work Phone: [facility] Comment on above: Sprain of right ankl e, unspecified ligament, initial encounter (Primary Dx) Start: 07-11-2022 End: 07-11-[address] SANJEEV LOPEZ . Facility: Start: 04-29-2022 End: 04-30-[address] SANJEEV LOPEZ . Facility:[facility] Start: 02-16-2022 End: 02-16-2022 Emergency department patient visit JOHNATHON WINTER [facility] Start: 01-03-2022 End: 01-03-2022 Emergency department patient visit JOHNATHON WINTER [facility] Start: 01-03-2022 End: 01-03-2022 Emergency department patient visit Teo Thomas [facility] ED Comment on above: Gastroenteritis (Neetu emil Dx) Start: 08-19-2021 End: 08-19-2021 Emergency department patient visit Radha Sanders MD Work Phone: [facility] Comment on above: Herniated lumbar int ervertebral disc (Primary Dx) Procedures Date Procedure Procedure Detail Performing Clinician Start: 06-12-2023 Follow-up visit Follow-up ROHIT KOLE CAMEJO V Start: 10-11-2022 Radex ankle complete minimum 3 views Bailee Lew STOCK HANGER - INTERACTIVE PRODUCER Work Phone: Start: 01-03-2022 Urinalysis microscop ic only Zachariah Cristian STOCK HANGER - BELT SANDER Work Phone: Start: 01-03-2022 Urnls dip stick/tabl et rgnt auto w/o microscopy Zachariah Cristian STOCK HANGER - BELT SANDER Work Phone: Start: 01-03-2022 Ct abdomen & pelvis w/contrast material Zachariah Cristian STOCK HANGER - BELT SANDER Work Phone: Start: 01-03-2022 Assay of lipase Zachariah Salespp STOCK HANGER - BELT SANDER Work Phone: Start: 12-01-2021 Adult depression screening assessment Serina ALVARADO Start: 08-19-2021 Ct lumbar spine w/o contrast material Radha Sanders MD Work Phone: Plan of Treatment Date Care Activity Detail Author Start: 06-11-2024 Adult BMI Screening Adult BMI Screen ing [facility] Start: 06-11-2024 Tobacco Screening Tobacco Screening [facility] Start: 05-16-2024 Adult BMI Screening Adult BMI Screen ing [facility] Start: 05-16-2024 [facility] Screening [facility] Start: 05-08-2024 Adult BMI Screening Adult BMI Screen ing [facility] Start: 05-08-2024 Tobacco Screening [facility] Start: 04-14-2024 Adult BMI Screening Adult BMI Screen ing [facility] Start: 04-14-2024 Tobacco Screening [facility] Start: 07-19-2023 End: 07-19-2023 Patient encounter procedure 07/19/2023 1:45 PM EDT Office Visit [facility] [address] [facility] [address] [place] [address] Vishal Martin, DO [address] [place] [address] [facility] Start: 07-17-2023 End: 07-17-2023 Patient encounter procedure 07/17/2023 10:00 AM EDT Office Visit [facility] [address] [place] [id number] Sanjeev Lopez DO [address] [place] [address] [facility] Start: 06-12-2023 End: 06-12-2023 Patient encounter procedure 06/12/2023 10:05 AM EDT Office Visit [facility] [address] [facility] [address] [place] [id number] Rohit Smith MD [address] [place] [address] [facility] Start: 05-19-2023 End: 05-19-2023 Patient encounter procedure 05/19/2023 10:15 AM EST Appointment [facility] [address] [place] [address] [facility] Start: 05-16-2023 End: 05-16-2023 Patient encounter procedure 05/16/2023 1:45 PM EST Office Visit [facility] [address] [facility] [address] [place] [address] Rohit Smith MD [address] [place] [address] [facility] Start: 05-08-2023 End: 05-08-2023 Patient encounter procedure 05/08/2023 1:30 PM EST Office Visit [facility] [address] [place] [address] Reny No, STOCK HANGER-INTERACTIVE PRODUCER [address] [facility] [place] [address] [facility] Start: 04-14-2023 End: 04-14-2024 XR Lumbar spine Views W flexion and W extension X-ray spine lumbar ap, lateral, flexion and extension only Imaging Routine Back pain, unspecified back location, unspecified back pain laterality, unspecified chronicity Expected: 04/14/2023, Expires: 04/14/2024 MARYA SBO Work Phone: Comment on above: Expected: 04/14/2023 , Expires: 04/14/2024 Start: 12-02-2022 Influenza vaccination Influenza Vacc ine [facility] Start: 12-01-2022 Depression Screening Depression Scre ening [facility] Start: 11-01-2022 Influenza vaccination Flu vaccine (# 1) [facility] Start: 09-03-2022 Adult BMI Follow Up Plan Adult BMI Follow Up Plan [facility] Start: 12-02-2021 Influenza vaccination Flu vacc ine (Season Ended) [facility] Start: 11-01-2021 Influenza vaccination Flu vaccine (# 1) [facility] Start: 2017 Diabetes screen Diabetes screen [facility] Start: 2012 Screening for malignant neoplasm of cervix [facility] Start: 12-01-2003 Screening for malignant neoplasm of cervix Pap smear [facility] Start: 2001 DTaP,Tdap and Td Vaccines (1 - Tdap) DTaP,Tdap and Td Vaccines (1 - Tdap) [facility] Start: 2001 DTaP/Tdap/Td vaccine (1 - Tdap) DTaP/Tdap/Td vaccine (1 - Tdap) [facility] Start: 2000 Hepatitis C screening Hepatitis C sc reen [facility] Start: 1994 Depression Screen Depression Screen [facility] Start: 12-01-1987 COVID-19 Vaccine (1) COVID-19 Vaccin e (1) [facility] Start: 12-01-1983 Varicella vaccine (1 of 2 - 2-dose childhood series) Varicella vaccine (1 of 2 - 2-dose childhood series) [facility] Start: 06-01-1983 COVID-19 Vaccine (#1) COVID-19 Vacci ne (#1) GIANA KHALILMILLY [facility] Payers Date Payer Category Payer Self-pay 2022 Unknown [id number] 2022 Unknown [id number] 2020 Unknown [id number] 1.2.8 [id number] 1982 Unknown [id number] 2.16.84 0.1.723391.3.579.2.593 1982 Unknown [id number] 2.16.84 0.1.735338.3.579.2.593 1982 Unknown [id number] 2.16. 840.1.616875.3.579.2.175 1982 Unknown [id number] 2.16. 840.1.621328.3.579.2.175 1982 Unknown [id number] 2.16. 840.1.000060.3.579.2.175 1982 Unknown [id number] 2.16.8 40.1.605069.3.579.2.1286 1982 Unknown [id number] 2.16.8 40.1.876775.3.579.2.1286 1982 Unknown [id number] 2.16.84 0.1.365615.3.579.2.1286 1982 Unknown [id number] 2.16.8 40.1.289819.3.579.2.718 1982 Unknown [id number] 2.16.8 40.1.874772.3.579.2.718 1982 Unknown [id number] 2.16.8 40.1.260511.3.579.2.1286 1982 Unknown [id number] 2.16.8 40.1.176682.3.579.2.1286 1982 Unknown [id number] 2.16.8 40.1.360899.3.579.2.128 1982 Unknown [id number] 2.16.8 40.1.037890.3.579.2.1286 1982 Unknown [id number] 2.16.84 0.1.017841.3.579.2.1258 1982 Unknown [id number] 2.16.84 0.1.739562.3.579.2.1258 1982 Unknown [id number] 2.16.84 0.1.931226.3.579.2.1258 1982 Unknown [id number] 2.16.84 0.1.368392.3.579.2.1258 1982 Unknown [id number] 2.16.84 0.1.093598.3.579.2.1258 1982 Unknown [id number] 2.16.84 0.1.180235.3.579.2.1258 1982 Unknown [id number] 2.16.840 .1.675907.3.579.2.1258 1982 Unknown [id number] 2. 840.1.934745.3.579.2. 1982 Unknown [id number] 2.16. 840.1.989252.3.579.2. 1982 Unknown [id number] 2. 840.1.622249.3.579.2. 1982 Unknown [id number] 2.16 840.1.686964.3.579.2. 1982 Unknown [id number] 2.16 840.1.917588.3.579.2.196 1959 Unknown [id number] Social History Date Type Detail Facility Start: 06-15-2015 End: 03-31-2022 Tobacco smoking status NHIS Never smoked tobacco [facility] Start: 06-15-2015 End: 03-31-2022 Tobacco use and exposure Smokeless tobacco non-user [employer] Phone: Start: 08-19-2021 End: 06-12-2023 Alcohol intake Current non-drinker of alcohol (finding) [facility] Phone: Start: 05-14-2020 End: 08-19-2021 Alcohol intake [facility] Start: 06-15-2015 History SDOH Alcohol Comment rarely [facility] Phone: Start: 1980 Sex Assigned At Not on file [facility] Phone: Start: 08-09-2021 End: 01-03-2022 Exposure to SARS-CoV-2 (event) Not sure [facility] Phone: History of tobacco use Passive smoker [facility] Phone: Start: 05-14-2020 End: 04-14-2023 Sex Assigned At [facility] Adolescent depressio n screening assessment [facility] [employer] Start: 05-04-2023 Alcohol intake Ex-drinker (finding) [facility] Start: 10-09-2022 Alcohol Comment Alcohol: 1 or 2 drinks on typical day/monthly or less. Caffeine: 1-2 cups/day tea [facility] Start: 1980 Sex Assigned At Female [facility] Start: 09-21-2022 Gender identity Identifies as female gender (finding) [facility] Start: 09-21-2022 Sexual orientation Heterosexual (finding) [facility] Clinical Notes 08-19-2021 to 08-23-2023 Rohit Metzger [...] wine (148 mL (more content not included)... [facility] 06-12-2023 History of Present illness [...] take another few months to subside. Recommended [id number]-[id number] pain relievers as needed. She is content [...] of the aforementioned history prepared by the [facility] provider, and I personally performed the [...] any severe symptoms. documented in this encounter [facility] 05-16-2023 History of Present illness Narrative [facility] Chief Complaint: [...] a snap. She initially followed up with [facility] and was diagnosed with right [...] External notes reviewed: I reviewed notes from [facility] orthopaedics. Review of test/study reports: I reviewed an x-ray obtained of the right ring finger. There were no acute osseous abnormality such as fracture dislocation. My personal interpretation of tests: I personally viewed and interpreted X-rays from [facility] as above. Xrays done in office today: None. Assessment: 1. Mallet deformity of right ring finger - [facility] - [place], [place] 2. Finger injury, right, initial encounter - [facility] [place], [place] Plan: I discussed treatment options with [...] with her flexion. documented in this encounter [facility] 05-10-2023 Evaluation note Encounter Date Diagnosis Assessment Notes May, Adult ADHD (attention deficit hyperactivity disorder) (ICD-10 - F90.9) Auto I.D. Other 02-01-2024 History of Present illness Narrative* [...] finger for about 2 weeks. Went to [facility]/09 due to having numbness in finger and unable to straighten it. Had XR at . On 03/13, pt went to [facility] and had another XR. Unable to get into hand specialist at [facility] until May 16. Continues to have [...] crooked. PT is RT handed Prior [place]: [facility] 03/09/23, XR, [place], [facility], XR 03/13/23, Ice, Heat, IBU, [place] ALLERGIES: No Known Allergies HOME MEDICATIONS: Current Outpatient Medications Medication Instructions amphetamine-dextroamphetamine (Adderall) 20 MG tablet 1 TABLET ORALLY MID DAY 30 DAYS cyclobenzaprine (Flexeril) 10 MG tablet PLEASE SEE ATTACHED FOR DETAILED DIRECTIONS fluconazole (DIFLUCAN) 100 mg, Oral, Daily nystatin (Mycostatin) 600063 UNIT/GM powder APPLY TO AFFECTED AREA TOPICALLY [...] normal Pronation: normal Supination: normal Muscle Strength [place] Bone Roller: 3/5 Other Erythema: absent Pulse: present Comments: [...] develop for requiring urgent evaluation. Oswaldo Dee STOCK HANGER-INTERACTIVE PRODUCER documented in this encounterBarnes[facility] [id number] Evaluation note* Encounter Date Diagnosis Assessment Notes Treatment Notes Treatment Clinical Notes Apr, Adult ADHD (attentio n deficit hyperactivity disorder) (ICD-10 - F90.9) Auto I.D. Other 01-10-2024 Evaluation note* Encounter Date Diagnosis Assessment Notes Treatment Notes Treatment Clinical Notes Apr, Adult ADHD (attentio n deficit hyperactivity disorder) (ICD-10 - F90.9) Auto I.D. Other 01-09-2024 Evaluation note* Encounter Date Diagnosis Assessment Notes Treatment Notes Treatment Clinical Notes Apr, Adult ADHD (attentio n deficit hyperactivity disorder) (ICD-10 - F90.9) Auto I.D. Other 01-08-2024 Evaluation note* Encounter Date Diagnosis Assessment Notes Treatment Notes Treatment Clinical Notes Apr, Adult ADHD (attentio n deficit hyperactivity disorder) (ICD-10 - F90.9) Auto I.D. Other 12-07-2023 NotePatient Education Materials Follows: Mallet [...] or lying down. General instructions ? Take beok-jdn-gfmpuzk and prescription medicines only as told by [...] by your health care p (more contentnot included)...[id number] Evaluation note * Encounter Date Diagnosis Assessment Notes Treatment Notes Treatment Clinical Notes Jan, Adult ADHD (attentio n deficit hyperactivity disorder) (ICD-10 - F90.9) Auto I.D. Other 10-02-2023 Evaluation note* Encounter Date Diagnosis [...] in 3 months or sooner if needed. Auto I.D. Other 09-08-2023 Evaluation note* Encounter Date Diagnosis Assessment Notes Treatment Notes Treatment Clinical Notes Dec, Adult ADHD (attentio n deficit hyperactivity disorder) (ICD-10 - F90.9) Auto I.D. Other 09-07-2023 Evaluation note* Encounter Date Diagnosis Assessment Notes Treatment Notes Treatment Clinical Notes Dec, Adult ADHD (attentio n deficit hyperactivity disorder) (ICD-10 - F90.9) Auto I.D. Other 08-30-2023 Evaluation note* Encounter Date Diagnosis [...] Cutaneous candidiasis (ICD-10 - B37.2) Refilled diflucan. Auto I.D. Other 07-11-2023 Hospital Discharge instructions* Discharge Instructions* RIZWAN Dietz CNP - 10/11/2022 8:08 PM EDT Please call and schedule a follow-up appointment with [facility]. Use an ice pack or [...] through Care Everywhere. * RICE: General Info (Zimbabwean) * Ankle Sprain (Zimbabwean) [facility] Discharge instructions* Instructions* Radha Sanders MD - 08/19/2021 May use ice or heat, whichever feels better. May use [place] for pain. Prednisone as directed. Follow-up with [...] a follow up appointment THANK YOU!!! From [facility] and [facility] On behalf of the Emergency Department staff at [facility], I would like to thank you for giving us the opportunity to address your health care needs and concerns. We hope that during your visit, our service was delivered in a professional and caring manner. Please keep [facility] in mind as we walk [...] how we did during your visit at [email or web address] and let us know about your experience * Attachments The following attachments cannot be sent through Care Everywhere. * Herniated Disc (Zimbabwean) [facility] [employer] Phone: evaluation note* Diagnosis Herniated lumbar intervertebral disc- Primary Displacement of lumbar intervertebral disc without myelopathy documented [facility] encounter [facility] Phone: evaluation note* Diagnosis Gastroenteritis- Primary Other and unspecified noninfectious gastroenteritis and colitis documented in this encounter [facility] Phone: evalfxlvqs note* Diagnosis Sprain of right ankle, unspecified ligament, initial encounter- Primary documented in this encounter [facility]* Diagnosis Back pain, unspecified back location, unspecified back pain laterality, unspecified chronicity- Primary [facility] noteNo InformationNortEagle[facility] [employer] Other Evaluation note* Diagnosis 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 Pain in finger of right hand Pain in soft tissues of limb documented in this encounter [facility]* Diagnosis Herniated lumbar intervertebral disc- Primary Displacement of lumbar intervertebral disc without myelopathy documented [facility]* Diagnosis 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 Finger injury, right, initial encounter [facility]* Diagnosis Herniated lumbar intervertebral disc- Primary Displacement of lumbar intervertebral disc without myelopathy Lumbar radiculopathy, chronic documented in this encounter [facility] noteNo assessment information [facility] Work Phone: Evaluation note* Diagnosis Lumbar radiculopathy, chronic- Primary Herniated lumbar intervertebral disc Displacement of lumbar intervertebral disc without myelopathy [facility]* Diagnosis 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 documented in this encounter [facility] general Narrative - Reported* Type Description Date Medical History PCOS/insulin resistant Medical History PCOS (polycystic ovarian syndrom e) Medical History Frequent headaches Medical History Gestational diabetes Medical History Prediabetes Surgical History cholecystectomy 2004 Surgical History appendectomy 2006 Surgical History Hospitalization History see surgical hx [facility] [employer] Other Hospital Discharge instructions* Attachments The following attachments cannot be sent through Care Everywhere. * Gastroenteritis (Zimbabwean) [facility] Work Phone: InstructionsNot on filedocumented in this encounter [facility] SystemInstructionsNot on filedocumented in this encounter [facility] SystemInstructionsNot on filedocumented in this encounter [facility] SystemInstructionsNot on filedocumented in this encounter [facility] SystemReason for referral (narrative)* Consultation (Routine) - Pending Review Specialty Diagnoses / Procedures Referred By Contact Referred To Contact Physical Medicine and Rehabilitation Diagnoses Herniated lumbar intervertebral disc Lumbar radiculopathy, chronic Reny No, STOCK HANGER-INTERACTIVE PRODUCER [address] [place] [address] Vishal Martin DO [address] [facility] [address] [place] [address] Referral ID Status Reason Start Date Expiration Date Visits Requested Visits Authorized [id number] Pending Review Specialty Services Required 05/24/2023 05/23/[address] [facility] Consultation (Routine) - Pending Review Specialty Diagnoses / Procedures Referred By Angela hart Referred To Contact Pain Medicine Diagnoses Lumbar radiculopathy, chronic Herniated lumbar intervertebral disc Reny No APRN-CNP [address] [facility] [place] [address] [place] [address] Davis Silva MD [address] [place] [address] Referral ID Status Reason Start Date Expiration Date V isits Requested Visits Authorized [id number] Pending Review 06/12/2023 06/11/[address] 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 [...] site of digit, initial encounter Nicole Lockwood, STOCK HANGER-INTERACTIVE PRODUCER [address], [place] [address] Rohit Smith MD [address] [facility] [address] [place] [address] Referral ID Status Reason Start Date Expiration Date Visits Requested Visits Authorized [id number] Pending Review Specialty Services Required 3 03/12/2024 1 1 Reason Comments Follow-up Rt anton ibanez 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 Ordered Prescriptions [...] would not scan at bedside. Verified with [facility] prior to administration.) Scheduled Medication Order [...] Care Teams (unrecognized sec tion and content) Technical Support Manager Relationship Specialty Start Date End Date Johnathon Winter MD PCP - General Family Medicine 03/08/16 Technical Support Manager Relationship Specialty Start Date End Date Johnathon Winter MD PCP - General Family Medicine 03/08/16 Technical Support Manager Relationship Specialty Start Date End Date Johnathon Winter MD PCP - General Family Medicine 03/08/16 Technical Support Manager Relationship Specialty Start Date End Date Johnathon Winter MD [address] [place] [address] PCP - General 03/13/23 Technical Support Manager Relationship Specialty [place] [address] [place] [id number] PCP - General Family Medicine 12/12/22 Technical Support Manager Relationship Specialty [place] [address] [place] [id number] PCP - General 03/13/23 Technical Support Manager Relationship Specialty [place] [address] [place] [id number] PCP - General 03/13/23 Technical Support Manager Relationship Specialty Start Date End Date Johnathon Winter MD [address] [place] [address] PCP - General 03/13/23 Team Status: Active Member Role Status Dates Johnathon Winter MD Primary Care Provide r, Attending Provider Active Start: May 10, 2023 Team Status: Inactive Member Role Status Dates Tee Peterson MD Attending Provider Active Start: May 23, 2023 End: May 23, 2023 Technical Support Manager Relationship Specialty Start Date End Date Johnathon Winter MD [address] [place] [id number] PCP - General 03/13/23 INFORMATION SOURCE (unrecogn ized section and content) DATE CREATED AUTHOR 07/17/2022 [facility] DATE CREATED AUTHOR AUTHOR'S ORGANIZ ATION 10/12/2022 [facility] DATE CREATED AUTHOR AUTHOR'S ORGANIZ ATION 06/01/2023 [facility] DATE CREATED AUTHOR AUTHOR'S ORGANIZ ATION 06/12/2023 [facility] DATE CREATED AUTHOR AUTHOR'S ORGANIZ ATION 09/02/2023 [facility] DATE CREATED AUTHOR AUTHOR'S ORGANIZ ATION 11/23/2023 [facility] DATE CREATED AUTHOR AUTHOR'S ORGANIZ ATION 12/01/2023 [facility] EPIC DATE CREATED AUTHOR AUTHOR'S ORGANIZ ATION 12/01/2023 [facility] Goals (unrecognized section and content) Goals [...] BE BASED ON THE PRIMARY CLINICAL RECORDS. [facility] [employer] [facility]. provides no warranty or guarantee of the accuracy or completeness of information in this document.
--- NOTE | 2023-12-06 14:12 | P.CN_ITS ---
Consult Note: HPI Data of Consult Patient: known to practice within the last 3 years Consult date: 11/13/23 Requesting Physician: Minnie Johnson NP Primary Care Provider: Radha Sanchez MD Consult Narrative Reason for consult: low back, left leg pain Narrative: 42yof who presents for assessment. has noticed worsening low back and left leg pain more recently. previously underwent lumbar epidural steroid injection, which provided >50% relief for >3 months. she continues in a series of provider directed home exercises for >6 weeks, without lasting benefit. uses ibuprofen as needed. denies adverse med side effects. recently underwent Left L4/5/ l5/S1 TFESI with 100% improvement in pain and functional ability ongoing. cc:: CC: Minnie Johnson NP Review of Systems ROS Status of ROS 10 or more systems reviewed and unremark able except as noted in history and below Musculoskeletal Denies: back pain or extremity pain PFSH [facility] Medical History (Updated 06/26/23 @ 15:30 by Christiano Rivera MD) White coat syndrome with high blood pressure without hypertension ?R03.0 - Elevated blood-pressure reading, without diagnosis of hypertension (ICD-10) Migraines ?G43.909 - Migraine, unspecified, not intractable, without status migrainosus (ICD-10) Metabolic syndrome ?E88.810 - Metabolic syndrome (ICD-10) Insulin resistance ?E88.819 - Insulin resistance, unspecified (ICD-10) History of PCOS ?Z87.42 - Personal history of other diseases of the female genital tract (ICD-10) ADHD ?F90.9 - Attention-deficit hyperactivity disorder, unspecified type (ICD-10) Surgical History S/P breast biopsy, left ?Z98.890 - Other specified postprocedural states (ICD-10) H/O tubal ligation ?Z98.51 - Tubal ligation status (ICD-10) H/O section ?Z98.891 - History of uterine scar from previous surgery (ICD-10) History of cervical cerclage ?Z98.890 - Other specified postprocedural states (ICD-10) Status post appendectomy ?Z90.49 - Acquired absence of other specified parts of digestive tract (ICD- 10) Hx of cholecystectomy ?Z90.49 - Acquired absence of other specified parts of digestive tract (ICD- 10) Meds Home Medications and Allergies Home Medications ?Medication ?Instructions ?Recorded ?Confirmed ?Type dextroamphetamine-amphetamine 20 20 mg PO .evening PRN hyperactivity 05/10/23 11/20/23 History mg tablet (Adderall) ibuprofen 200 mg tablet (Advil) 800 mg PO TID-QID PRN pain 05/10/23 11/20/23 History lisdexamfetamine 50 mg capsule 50 mg PO DAILY 05/10/23 11/20/23 History (Vyvanse) tirzepatide 7.5 mg/0.5 mL 7.5 mg subcut QWEEK 05/10/23 11/20/23 History subcutaneous pen injector (Mounjaro) Allergies Allergy/AdvReac Type Severity Reaction Status Date / Time No Known Drug Allergies Allergy Verified 11/20/23 08:06 Exam Narrative Exam Narrative: Psych-alert and oriented x 3. Attentive and appropriate, constitutionally normal, displays normal mood and affect per situation. There are no obvious defi cits in memory, reasoning, or intellect.? Skin-no obvious rashes, bruising, erythema noted to the patient's area of pain.? Extremities- extremities are warm with minimal edema and palpable pulses. Lumbar-no tenderness to palpation noted in the lumbar spine and paraspinal musculature. No pain is not elicited with flexion, extension, and lateral rotation of the lumbar spine. Range of motion is not diminished with these motions. Facet loading maneuvers are negative.? Strength-noted to be unremarkable Sensory-no notable sensory deficits in the bilateral lower extremities to touch or pinprick in all dermatomal distributions Coordination remains intact.? Gait remains non-antalgic. Assessment and Plan Assessment and Plan (1) Lumbar stenosis with neurogenic claudication: (2) Lumbar disc displacement without myelopathy: (3) White coat syndrome with high blood pressure without hypertension: Assessment and Plan: BP elevated upon initial reading, had an appointment with Dr Lopez this morning and BP was WNL Plan 100% improvement ongoing from left L4/5 L5/S1 TFESI f/u as needed
== END 2023-12-06 13:42 | disposition home or self-care (01) ==
LOC: PM 13:42
PROVIDERS: PCP Family Medicine; Visit Provider Nurse Practitioner
DX: M48.062 Spinal stenosis, lumbar region with neurogenic claudication (principal); M51.26 Other intervertebral disc displacement, lumbar region; R03.0 Elevated blood-pressure reading, without diagnosis of hypertension; N92.0 Excessive and frequent menstruation with regular cycle
CPT/HCPCS: 88305; G0463

== ENCOUNTER 2023-12-08 07:21 | Outpatient (OUT) | payer BC, SELFPAY ==
--- OUTSIDE RECORDS SUMMARY | 2023-12-08 07:26 | XMS_ITS | CCD ---
Author Organization [facility] Care Team Providers Care Environmental Protection Forester Name Role Phone Johnathon Winter MD Primary Care Provider [phone] JESSICA ., DR ROMERO Admitting Unavailable JESSICA ., DR ROMERO Attending Unavailable REQUEST, DR NONE LISTED Primary Care Unavaila ble JESSICA ., DR ROMERO Consulting Unavailable Zieber, Tee Consulting Unavailable JESSICA ., DR ROMERO Admitting Unavailable JESSICA ., DR ROMERO Attending Unavailable REQUEST, DR NONE LISTED Primary Care Unavaila ble JESSICA ., DR ROMERO Consulting Unavailable Johnathon Winter MD Primary Care Provider [phone] JOHNATHON WINTER Primary Care Unavailable ROXIE GARCIA Attending Unavailable JOHNATHON WINTER Primary Care Unavailable SANCHEZ AGUSTIN Attending Unavailable JOHNATHON WINTER Primary Care Unavailable TEO THOMAS Attending Unavailable Johnathon Winter Unavailable Johnathon Winter MD Primary Care Provider [phone] Scottie Lyn Unavailable Johnathon Winter MD Primary Care Provider [phone] MD Tee Peterson Attending Provider Tee Peterson Attending Unavailable Tee Peterson Admitting Unavailable ROHIT LARKIN Attending Unavailable JOHNATHON WINTER Referring Unavailable JOHNATHON WINTER Primary Care Unavailable JOHNATHON WINTER Referring Unavailable JOHNATHON WINTER Primary Care Unavailable KAL MARTINEZ Attending Unavailable ROHIT LARKIN Attending Unavailable ASMITA MONTGOMERY Referring Unavailable MICHAEL WINTERIA E Primary Care Unavailable KELI Resendez Admitting Unavailable Johnathon Winter E Primary Care Unavailable KELI Resendez Attending Unavailable Johnathon Winter E Primary Care Unavailable Sanchez John Attending Unavaila Sanchez Parham Admitting Unavaila RENY Abreu Attending Unavailable JOHNATHON WINTER Referring Unavailable JOHNATHON WINTER Primary Care Unavailable MARTÍN ORETGA Attending Unavailable JOHNATHON WINTER Referring Unavailable MICHAEL WINTERIA Jay Primary Care Unavailable RENY NO Referring Unavailable JOHNATHON WINTER Primary Care Unavailable RENY NO Referring Unavailable JOHNATHON WINTER Primary Care Unavailable Felicia SÁNCHEZ, Bhavin Primary [facility] Unavailable Miguel SÁNCHEZ, Christiano Mcgovern Attending Unavailable Felicia SÁNCHEZ, Bhavin Primary Care Unavailable Miguel SÁNCHEZ, Christiano Mcgovern Attending Unavailable Felicia SÁNCHEZ, [facility] Care Unavailable Miguel SÁNCHEZ, Christiano Mcgovern Attending Unavailable Miguel SÁNCHEZ, Christiano Mcgovern Attending Unavailable Felicia SÁNCHEZ, [facility] Unavailable Miguel SÁNCHEZ, Christiano Mcgovern Attending Unavailable Felicia SÁNCHEZ, [facility] Unavailable SANJEEV LOPEZ Attending Unavailable OSWALDO DEE Attending Unavailable SANJEEV LOPEZ Attending Unavailable SANJEEV LOPEZ Attending Unavailable ROBERT URRUTIA Attending Unavailable SANJEEV LOPEZ Referring Unavailable SANJEEV LOPEZ Attending Unavailable OSWALDO DEE Attending Unavailable SANJEEV LOPEZ Attending Unavailable DO Sanjeev Lopez Attending Provider Allergies Allergy Classification Reported Allergen(s) Allergy Type [...] / dextroamphetamine sulfate 7.5 mg oral tablet (20 sources) Central Nervous System Stimulant Start: 09-18-2023 End: 10-25-2023 take 30 mg by mouth twice daily Dextroamphetamine- Amphetamine Active 30 MG PO Twice daily 60 30 October 25, 2023 Start: 06-21-2023 End: 06-21-2023 take 30 mg by mouth twice daily Dextroamphetamine-Amphetamine Discontinu ed 30 MG PO Twice daily June 21, 2023 12:00am June 21, 2023 3:09pm Start: 06-21-2023 End: 09-18-2023 take 20 mg by mouth once daily in the evening as needed Dextroamphetamine-Amphetamine Discontinu ed 20 MG PO Daily August 04, 2023 September 18, 2023 8:36am in the pm as needed Start: 04-19-2023 take 1 tablet by surendra th every twelve hours Adderall 30 MG 1 tablet Orally Twice a d ay for 30 days Apr, Active Start: 01-02-2023 [...] A DAY 90 tablet 0 04/25/2022 Active methylPREDNISolone 4 mg oral tablet (5 [...] once a week. 0 02/27/2023 Active nystatin 919804 unt/ml topical cream (9 sources) Polyene Antifungal Start: 05-01-2023 End: 04-30-2024 nystatin (Mycostatin) cream Indications: Follow-up encounter involving medication , Superficial skin infection Apply topically 2 (two) times a day 30 g 3 05/01/2023 04/30/2024 Active Start: 04-14-2023 nystatin (MYCO STATIN) powder Apply 1 Application topically in the morning and 1 Application before bedtime. 0 04/14/2023 Active Start: 04-14-2023 nystatin (Myco statin) 562426 UNIT/GM powder Indications: Skin irritation APPLY TO [...] days 20 tablet 0 08/19/2021 08/29/2021 Active Wvk-Jqu-ZI-Fish Oil ([facility] GUMMY) 0.4-113.5 MG CHEW (2 sources) Mzm-Byr-FK-Fish Oil ([facility]) 0.4-113.5 MG CHEW Take [...] End: 10-11-2022 ketorolac (TORADOL) injection 30 mg lisdexamfetamine dimesylate 50 mg oral capsule (20 sources) Central Nervous System Stimulant Start: 06-21-2023 End: 09-18-2023 take 1 capsule by mouth once daily Lisdexamfetamine (Vyvanse) 50 mg capsule Discontinued 50 MG PO Daily August 04, 2023 September 18, 2023 8:36am Start: 12-08-2022 take 1 capsule by [facility] every twenty-four hours Vyvanse 50 MG 1 capsule in the morning Orally Once a day for 30 days May, Active Start: 2022 take 1 capsule by mo [facility] every twenty-four hours Vyvanse 30 MG 1 capsule in the morning Orally Once a day for 30 days Nov, Active 1 ml morphine sulfate 4 mg/ml cartridge [...] Chronic Attention-deficit, conduct, and disruptive behavior disorders (13 sources) Adult attention deficit hyperactivity disorder ; Translations: [Attention-deficit hyperactivity disorder, unspecified type] 06-22-2023 Chronic Attention-deficit, conduct, and disruptive behavior disorders [...] Test Name Value Interpretation Reference Range Facility Free testosterone measuremen t by LC-MS/MSon 11-29-2023 Testosterone Free [Mass/Vol] <0.2 pg/mL 0.0-4.2 [facility] Comment on above: Performed at: [facility] [address] [id number] Director: Theron Roblero PhD, Phone: [phone] at: [facility] [id number] Director: Katelynn Macdonald MD, Phone: [phone] No Panel Informationon 11-28 Dehydroepiandrosterone Sulfate 40.8 ug/dL Abnormal 57.3-279.2 [facility] Sex Hormone Binding Globulin 60.9 nmol/L 24.6-122.0 [facility] Comment on above: Performed at: [facility] [id number] Director: Theron Roblero PhD, Phone: [phone] Testosterone Level <3 ng/dL Abnormal 8-60 [facility] Activated partial thrombopla stin time (aPTT) in platelet poor plasma by coagulation aon 10-25-2023 aPTT Coag (PPP) [Time] 29.5 s 22.3-36.2 [facility] Basophils Auto (Bld) [#/Vol] on 10-25-2023 Basophils (Bld) [#/Vol] 0.1 10 3/uL 0.0-0.1 [facility] Basophils/100 WBC Auto (Bld) on 10-25-2023 Basophils/100 WBC (Bld) 1.1 % 0.2-2.0 [facility] Eosinophils/100 WBC Auto (Bl d)on 10-25-2023 Eosinophils/100 WBC (Bld) 2.2 % 0.9-7.0 [facility] Erythrocyte distribution wid th Auto (RBC) [Ratio]on 10-25-2023 Erythrocyte distribution width (RBC) [Ratio] 14.5 % 11.0-15.0 [facility] Glucose mean value [Mass/vol ume] in Blood Estimated from glycated hemoglobinon 10-25-2023 Average glucose Estimated from glycated hemoglobin (Bld) [Mass/Vol] 88 mg/dL [facility] Hematocrit Auto (Bld) [Volum e fraction]on 10-25-2023 Hematocrit (Bld) [Volume fraction] 39.8 % 36.0-48.0 [facility] Hemoglobin [Mass/volume] in Bloodon 10-25-2023 Hemoglobin (Bld) [Mass/Vol] 12.6 g/dL 12.0-16.0 [facility] INR in Platelet poor plasma by Coagulation assayon 10-25-2023 INR Coag (PPP) [Relative time] 0.99 {INR} [facility] Comment on above: DESIRED INR:2.0-3.0 CONDITIONS NOT LISTED BELOW2.5-3.5 FOR PROSTHETIC HEART VALVE REPLACEMENT2.5-3.5 RECURRENT THROMBOSIS Laboratory - Chemistry and C hemistry - challengeon 10-25-2023 Free T4 [Mass/Vol] 1.24 ng/dL 0.76-1.46 [facility] TSH Qn 1.497 m[IU]/L 0.358-3.74 0 [facility] Laboratory - Hematology and Cell countson 10-25-2023 HbA1c (Bld) [Mass fraction] 4.7 % 4.5-6.2 [facility] Comment on above: ADA RECOMMENDED LIMI T 4.0 - 6.0ADA THERAPEUTIC TARGET < 7.0ACTION SUGGESTED> 7.0 Immature granulocytes/100 WBC (Bld) 0.2 % 0.0-0.5 [facility] Leukocytes [#/volume] correc mini for nucleated erythrocytes in Blood by Automated counon 10-25-2023 WBC corrected for nucl RBC Auto (Bld) [#/Vol] 5.5 10 3/uL 4.0-11.0 [facility] Lymphocytes Auto (Bld) [#/Vo l]on 10-25-2023 Lymphocytes (Bld) [#/Vol] 1.8 10 3/uL 1.2-3.8 [facility] Lymphocytes/100 WBC Auto (Bl d)on 10-25-2023 Lymphocytes/100 WBC (Bld) 33.3 % 20.5-60.0 [facility] MCH Auto (RBC) [Entitic mass ]on 10-25-2023 MCH (RBC) [Entitic mass] 27.9 pg 26.7-34.0 [facility] MCHC Auto (RBC) [Mass/Vol]on 10-25-2023 MCHC (RBC) [Mass/Vol] 31.7 g/dL 29.9-35.2 [facility] MCV Auto (RBC) [Entitic vol] on 10-25-2023 MCV (RBC) [Entitic vol] 88.1 fL 81.0-99.0 [facility] Monocytes Auto (Bld) [#/Vol] on 10-25-2023 Monocytes (Bld) [#/Vol] 0.3 10 3/uL 0.3-0.8 [facility] Monocytes/100 WBC Auto (Bld) on 10-25-2023 Monocytes/100 WBC (Bld) 5.4 % 1.7-12.0 [facility] Neutrophils Auto (Bld) [#/Vo l]on 10-25-2023 Neutrophils (Bld) [#/Vol] 3.2 10 3/uL 1.4-6.5 [facility] Neutrophils/100 WBC Auto (Bl d)on 10-25-2023 Neutrophils/100 WBC (Bld) 57.8 % 43.0-75.0 [facility] No Panel Informationon 10-24 Eosinophils # (Auto) 0.1 10 3/uL 0.0-0.7 [facility] Human Chorionic Gonadotropin, Quant <1 mIU/mL [facility] Comment on above: 5-50 0.2-1 RPFL01-59 0 1-2 ZPWWZ859-3,000 2-3 COCOQ336-71,000 3-4 WEEKS1,000-50,000 4-5 WEEKS10,000-100,000 5-6 WEEKS15,000-200,000 6-8 WEEKS10,000-100,000 2-3 MONTHS Immature Granulocyte # (Auto) 0.01 10 3/uL 0.00-0.03 [facility] Platelet mean volume Auto (B ld) [Entitic vol]on 10-25-2023 Platelet mean volume (Bld) [Entitic vol] 9.7 fL 9.5-13.5 [facility] Platelets Auto (Bld) [#/Vol] on 10-25-2023 Platelets (Bld) [#/Vol] 300 10 3/uL 150-450 [facility] Prothrombin time (PT)on 10-02 PT Coag (PPP) [Time] 10.5 s 9.0-11.6 [facility] RBC Auto (Bld) [#/Vol]on RBC (Bld) [#/Vol] 4.52 10 6/uL 4.20-5.40 [facility] Coding Summaryon 09-01-2023 Coding Summary HTMLBase 64 YjbxpwwxBLn7qXi+PGhlYWQ+ TC5BKTXdB99qoEIseK6cZ4JF TElOSywgQVBQTElOSyIgbmFt TX5enYRnXDKi IC8+MW8dZMGuObsnnVQjm3R0 pPV5K11hzt9xFHepsTJ9MHVf DoQmsfhzq9tmrIe3DDsjHbtz OyBt DWUxwP47TDK4xV02El19hOBb tLOdf8msuQz9KvMzQAWtQWJ6 wTqkSYchi8RbSIWoX38drXZp c2U6 NCTscVhgmAKfFsOxiKD5wZ6h EYsvpzfgk3ksbmjuPmk8kw89 nBXjb8A2gUD1T4KpzzX6LYRy bGQg FycetSZFsV1smoqsi4octukj DvTxNMAqTWh2VYo2NCKywOms MgVbCD85TSS8MGGghjBxG0Pq LWFs uUsjQoG9b7Y6Zu3YK4SUJbcf O0LHTMBLRNvogXG+JL79jj06 R6XqVcmzUvv6QPHkWFL2lVG6 aD0n NYNxTWhaa5L7mLO5D6NhqmJh xs9tk9rrPTZaRCwrI26aaNUw r4E3RKOvkNL8HBGyyFjuLtUk aG93 Oyc+BRHwrIdvw9IrWmkom2tl d4otiRu7QhlhAVEmkoIgjJdw HSA1m5ZpTl5yYQLojIB7rRQ3 aD0i GqXzFuV0NPfcA399UyUcdSAa FlrjR49gA1MajIJ+PHRyPjx0 JXMbeTdsOM1vZ0KjYGCirsux bGVm lHcjFG0nQAJjhjsyRBOrsP5u OOGhC4t1VuTjWbI1NVsyJ1Qv FVIpnjuaZr31gA6nCfLfErR9 MGlu P3StuwL7IBIvfQCgWYplCWP4 L09zj5P6EVHcOOCvMBX2gRL0 oZ0bgGjcyyzbmSKvzXbswxFb dGlj SCupPLbjY594CTNhqGarGsTl ZGluZyBEYXRlOiAgMDUvMzEv MjAyNDwvdGQ+SPRuCLR9xArp PSAn sVIzKAdwOj6tjBbfdWgyKO4f HXZrossmREMheF0rDBWcuMZv gRdmWA9pUSVzqhdfo676ZiDm MHB0 CNRbtMOkR6EonF6rSyTlUCWu XDCjX9LqiZAhBNtrI592QLpp NgI6YVZvteKfI4RdBLCfbDxa OiB0 c5W8Pn1Zg3YwtzpeN3JfjQFa InOgHvcmWRz7U3SqRgzyfGJ+ AC46ZFAqSL59SRx0KIA1bFdg PSdi BWGfN5TpeN7vAvJsFOTiPFFw Oyc+PHRhYmxlIHdpZHRoPScx DKPlRaPwnJmsBK4tNe7bATNg LWNv bNsahIJhBqSpw3kxVMOaMAjv BH4umXrgG3XmlQP9YTRdq7h6 Pn51P91hR2SzpSD+PGNvbCB3 aWR0 cI6xQoIzWaQ2SLwfW240IyPa pEDsOeuhe3cpl0mjfGt6TnP6 PDWjkcOxdYxtOPU5y7VrEd02 Y29s IHdpZHRoPSIxNSUiIHZhbGln ch7yoR1uMe5+JIOolMB1sPM8 gB8zIaHrDnU9KMofV865RuVi cCIv Ddhrr6xwh1namBz2LlOoTZOq rfSapTfvHDP8k0CnYc59U1Qf sKscf2PdKjd4fv66iXTtb0K7 bGU9 N0SpRXUqlrwdtNVjrFjoZT3d TODofzqqPTYsaI6iQQTnA1u8 ZqBqKzO3KWrhY2NmsfI6IOEc bGQg IDNdpKVMsU0olvmmx6jvbcaw QdIwABPyFWu8PWf4PWLkuBmi YhErLRW7UwY2YUF1yTNpeM8y bGln drqjdP0eQun+MOU9gTVznWFK WD0rGjrotVD+TPQpNEX0eAgu NYpnQRCdcX1pFRTaD4h4MdTw LjA1 WLugY2JpeuI7NEKvxGCnEUYd aZEPqZ8vibzdd6sczwceBeVt BRZzDHt4NTa3TCKmtCdzLcQe ZWZ0 QmH2PWT9vNPrrG1ouEbpoiuw jL2dBvv+JthjvYrxLDJ8ZDw5 N8MqIjf5WOCdhMkiHJ1nyDOo ZGlu Km0ddRcchOtvZD8eRGWuftxu n057GzZya1qeVGStnIEcBWay CVP6O46oa8Y0YSEpRKXnCVC6 dGV4 aV5qmHzeiqzahTLcnUfklhDh sDezPSyiPBfkJ686FLXvbEcz BgYrDOw9F1OnYsm2HPFyeMgc ZT0n gILsOIstVq3suIsexXmvKV1k MFQamozvx328YyKwb2cwIKZo vBUtOTpjIUE2B75uy9H1JXKm MDAw UHY8zQA3oN0zaYrunykimUGm qFfygcKhuErkPAqyQHogV630 ESUjlOziNgTygVw5X5CjVqb3 ZCBz pRbdVX4baMJcTTxaRv8uyFdd sInbYV5uEGIyvnesm283MmYk e1jzJFOoaDVxCDrrURV6N59h b3I6 IDIrFMOwCKB6rVH3lF2wtGkd bjogbGVmdDsgdmVydGljYWwt LImnD509XYUqtNnwAfUjnWuu bnQg RPsoXHx5T2QmSnqmaDI+PC90 YNIeEM04gWOhxBTop5vvmTk7 RsFaESBkVTV7zZkqKWjsu2Kl ZXIt C79cmTAhr3P9BEJlzDoenJKg KlKyiGW3bM1lWRzcqelea5me emluWsouc9ibyh93rV52X75x IHdp VWZrRSCpJNEhWPUssMsbcb0e wA4dNv7+TAZuhCZ4iFH8vB4k UAKpKgF5TRuwW107TcWexTLd Pjxj v0fls3rceQh9DbT7WUQarlXu nQwlFXN3p3KhJp25S84qPJcn EOEoCHRdABTzLNGbjFlzht8m dG9w Ii8+HPWvhLO1uHC5kV4fBjZl PzY6UNuxV580MlAesJUaQzuh T45rY4LktHR+DLLgDlg4PZXz dHls CW5uzRDjIZqkNc3uQVZ2NpVh JjLeJNoiW5HnWJMuiiarmixb hLJ5KGYpCEVtxR70Dm7xcOob MTBw sNZTkR0dsxvdf3lmqgdtHuDw NRXcZOv8VTj8BKYjbSlaBxSq KYY4SyT9SSN2qMOtpO9yyVuu bjog tQ8hN6FvITBidkyiEh38nP8c OhDyYfT6FCvkLrq+M88IW1qJ LCBBTUFOREEgREFXTjwvdGQ+ PHRk GTL3jJyiBKgcXLGjsE5fZNHu Y1y8AgWePyG0XYalF9NmSQSp bemhMz30xF9lFdToPwG9QGuh O2Zv taF4VRIylJWhCJmuAJG3A70n q7F3XUXyEQGxVOF2kGJ4qI4u bGlnbjogbGVmdDsgdmVydGlj YWwt XGszX959TCVzyYluVbC0IyGv VmR5DNA4M5WiLzl6RQHbzIvr TB1ywUCoRVouIe7odAxjyFmj MC4w RKExvywoJLHjuL3dAWSaiZYk uEgnNY5cHLIchtoml542WcWa XHA7TYBktAZfE0ImdQ2uKpLs MDAw QFFlJ9XbtYIoKNsaX515IKaq SkX3CAOxboFhJ0XlAIPjgUli SoU4m6Y7Tx68HHEICQGicvop dGQ+ ZVCnRLU3vBrsMQwoTHZzrG8g XBOkG9m4EpZiRjC0FIjxF3Jo OIDxxpyvRp54fD3iQiDfHbI1 MGlu M3OnymX7PXIxxHUxKTfdTYU0 Z98ry5C5EINwEGDeFPV0pUX1 mI0jzVbpefzlhOJiwVvecqHx dGlj IUmgZDpgM987YHOhuJfbBlRA TUFMRTwvdGQ+MFLdUNL3lCcs YQtlVRDuwI3nWTVcD0a5YkFw LjA1 PNssE6NvAZIjsogiYy85qQ9z HyZwKpS6RLusN8XmqdM7ZOTp bXImAObpPBA2F97qz7Z0MUIm MDAw KPN7pDE5fZ9rqEtdbkczzERe bNrraqRdfFqaKGppYWnrA931 VOYblNxaFh8JZS91RD91U8Gt Pjwv dGFibGU+PHRhYmxlIHdpZHRo HFkwLFSxZwSdxOpeWI0qXm9t OXDhWUJvjZqxhRBhAdTba7fc YXBz IZrjTO2tsWhnU5LhbKJ8ANJm w7p6Jr10I66lU1DgnXH+PGNv aAX5rLJ6dL6sDtTjHuC5APyq Z249 RaEgsAJbRwezo9dua9hopCz0 IjJwDQLceeImxJnuYJR8s0An On42X10kBIuuXFWrZYAlJQEz IHZh fEcjkg1xzP8oGa0+PGNvbCB3 jNN8eJ6eSyUeZaY6YMaoV480 AmZqeNWyRnjeL09pC9CrqPU+ PHRy Wfk1UGLwrXwtHS8jdKYmLFpv Ms2vSAP8MpJaSpJmZMvcH4By TWFsctniopmmpEF0PVAwJMXg aW47 Iw5ahInzZv9sVPIhCVA4GFAh tHAdF1BazJ1sNgJvSHNtIRPr A8CoaRRnKUxiK256IQjlAyL5 IHZl reFjJ3WvMBNrpEhhMlV3j2O9 Ai9EzCvrqXYpVK8hVgJnXSj4 V2BkWfw8CGCidVhqTP0wjOAr ZGlu Gb8fpIoghBmwDA9iQFMzwqqu l246DrHav6lfHYIvkRUfEFrd TKS0S72dg5F9NHDvECCbEVN3 dGV4 iZ3awHxuuzfrtEWmkKegcgRb bSbyBRooZObpY115XJQrzSrg UvOFRlx4L4ZrLls9XCTbhXub ZT0n kRNrBIitCk3vpMpuxYhoCB1l OFAefzorm058HeUaw1uuMHKz hKUeWHbdBML3K32lp8W1QWHt MDAw ZAS4yQQ1dY0mkKztmclvsFHh eZxfhnLyzSuxWNmhFZeoH451 TPDzjXjhIe7XSdp5T7FbYhw6 ZCBz iLttOG0ezRSaJTadZk1ouDha xOooTJ0xRBKhclspr310YwLi q8vbFIXfmIKxMUbzSXJ3A73s b3I6 GOBhWBDdTLJ7cMU7aS4rlCif bjogbGVmdDsgdmVydGljYWwt MKazG041GPAjnZgfQsKklRTe Ojwv dGQ+NJ00bh75C4XsSkriQyr6 FWHzWWR4zLA2kJ0sLTHaIEnw q3V9vLW9F4NebjLpcj8ct9hy YXBz ZTo (more content not included)... Normal [facility] ED Clinical Summaryon 2023 ED Clinical Summary [facility] ? Urgent Care [address] [place] [address] [id number] Clinical Summary PERSON INFORMATION Name: KARUNA DUMONT Age: 42 Years Sex: FEMALE : 1980 MRN: Acct#: Visit Reason: Skin problem; RASH ON ARMS Arrival: 08/23/2023 14:45:23 Discharge: 08/23/2023 15:20:00 LOS: 000 00:35 Check In: 08/23/2023 14:45:23 Checkout: 08/23/2023 15:20:00 Address: [address] [facility] [address] PCP: Johnathon Winter MD PROVIDER INFORMATION Provider Role Assigned Unassigned Phuong Oseguera [employer] OPERATOR Nurse 08/23/2023 14:46:59 Yissel Resendez PA-C [...] Follow-Up: With: Address: When: Johnathon Winter MD [address] [place] [address] [phone] DIAGNOSIS: 1:Rash and nonspecific skin eruption; 2:Elevated blood pressure reading without diagnosis of hypertension Patient Understands: Comment: Normal [facility] ED Patient Summaryon 024 ED Patient Summary [facility] ? Urgent Care [address] [place] [address] [id number] PATIENT DISCHARGE INSTRUCTIONS Patient Information Name: KARUNA DUMONT Age: 42 Years Date of : 1980 Reason For Visit: Skin problem; RASH ON ARMS Arrival Time: 08/23/2023 14:45:23 Primary Care Physician: Johnathon Winter MD Attending Physician: Yissel Resendez PA-C Comment: Patient Education With: Address: When: [place] [address] [place] [address] [phone] Rash, Adult A rash is a change [...] with your condition: Medicine Take or apply kmsk-cqe-ehosnxm and prescription medicines only as told by [...] a bath with: ? Epsom salts. Follow marriage and family teacher instructions on the packaging. You can get these at your local pharmacy or grocery store. ? Baking soda. Pour a small amount into the bath as told by your health care provider. ? Colloidal oatmeal. Follow marriage and family teacher instructions on the packaging. You can get this at your local pharmacy or grocery store. ? Try applying baking soda paste to your skin. Stir water into baking soda until it reaches a paste-like consistency. ? Try applying calamine lotion. This is an nxxb-esi-xarrlpe lotion that helps to relieve itchiness. ? [...] rash from spreading. ? Take or apply kkxv-rdu-mxzihuu and prescription medicines only as told by your health care provider. ? Contact a health care provider if you have new or worsening symptoms. ? Keep all follow-up visits as told by yo (more content not included)... [facility] 05-23-2023 L Specimen: [id number] Received: 05/24/23 Status: NATHAN Guzmán Num: [id number] Spec Type: Surgical Subm Dr: Tee Peterson MD Tissues: A BREAST CORE NO CALCS (LT BREAST) Procedures: HE/4, Gross/Micro L4, AE1-AE3/2 Age/ Patient Sex Location Account Attending Physician Karuna Dumont 42/F [facility] [id number] Tee Peterson MD SPEC NUM: [id number] RECD: 05/24/23 STATUS: NATHAN GUZMÁN NUM: [id number] GENEVA: 05/23/23 DR: Tee Peterson MD ENTERED: 05/24/[address] [facility] DR: Bert,Lab SPEC TYPE: Surgical DEPT: ROLDAN [...] Time: 0.10 Formalin Fixation Time: 28.50 Specimen: [id number] Received: 05/24/23 Status: NATHAN Guzmán Num: [id number] Spec Type: Surgical Subm Dr: Tee Peterson MD Tissues: A BREAST CORE NO CALCS (LT BREAST) Procedures: HE/4, Gross/Micro L4, AE1-AE3/2 Patient: Karuna Dumont [id number] (Continued) Specimen: [id number] Received: 05/24/23 (Continued) Signed (signature on file) Tootie Jordan MD 05/31/232105 Specimen: [id number] Received: 05/24/23 Status: NATHAN Guzmán Num: [id number] Spec Type: Surgical Subm Dr: Tee Peterson MD Tissues: A BREAST CORE NO CALCS (LT BREAST) Procedures: HE/4, Gross/Micro L4, AE1-AE3/2 Patient: Karuan Dumont [id number] (Continued) Specimen: [id number] Received: 05/24/23 (Continued) CPT Codes 67658 Specimen: [id number] Received: 05/24/23 Status: NATHAN Guzmán Num: [id number] Spec Type: Surgical Subm Dr: Tee Peterson MD Tissues: A BREAST CORE NO CALCS (LT BREAST) Procedures: MELANIE/4, Gross/Micro L4, AE1-AE3/2 Patient: Karuna Dumont [id number] (Continued) Signed (signature on file) Tootie Jordan MD 05/31/232105 [facility] MR LUMBAR SPINE WO CONTon MR LUMBAR [...] Yung Perry on 05/23/2023 12:47 PM Normal [facility] Free testosterone measuremen t by LC-MS/MSon 05-10-2023 Testosterone Free [Mass/Vol] 0.6 pg/mL 0.0-4.2 [facility] Comment on above: Performed at: [address] [id number] Director: Theron Roblero PhD, Phone: [phone] at: [address] [id number] Director: Katelynn Macdonald MD, Phone: [phone] No Panel Informationon 05-10 C-Peptide 2.8 ng/mL 1.1-4.4 [facility] Comment on above: C-Peptide reference interval is for fasting patients.Performed at: [facility] [id number] Director: Theron Roblero PhD, Phone: [phone] Dehydroepiandrosterone Sulfate 194.0 ug/dL 57.3-279.2 [facility] Free Cortisol, Dialysis, LCMS 0.787 ug/dL . [facility] Comment on above: These tests were dev eloped and their performancecharacteristics determined by [facility]. They have not beencleared or approved by the Food and Drug Administration.Reference Range:8 AM 0.10 - 1.204 PM 0.042 - 0.872Performed at: [facility] [address] [id number] Director: Kal Archibald MD, Phone: [phone] Reverse Triiodothyronine (T3) 23.0 ng/dL 9.2-24.1 [facility] Comment on above: This test was develo ped and its performance characteristicsdetermined by [facility]. It has not been cleared orapproved by the Food and Drug Administration.Performed at: [facility] [id number] Director: Katelynn Macdonald MD, Phone: [phone] Sex Hormone Binding Globulin 49.1 nmol/L 24.6-122.0 [facility] Comment on above: Performed at: [address] [id number] Director: Theron Roblero PhD, Phone: [phone] Testosterone Level 22 ng/dL 8-60 [facility] Plasma serotonin measurement (mass/volume)on 05-10-2023 Serotonin (P) [Mass/Vol] 105 ng/mL 31 [facility] Comment on above: This test was develo ped and its performance characteristicsdetermined by [facility]. It has not been cleared orapproved by the Food and Drug Administration.Performed at: [facility] [id number] Director: Katelynn Macdonald MD, Phone: [phone] Serum estrone measurementon 05-10-2023 E1 [Mass/Vol] 65 pg/mL 27-231 [facility] Comment on above: Range Adult (Premeno pausal) 27 - 231 Menstrual Cycle (1-10 days) 19 - 149 Menstrual Cycle (11-20 days) 32 - 176 Menstrual Cycle (21-30 days) 37 - 200Performed at: [address] [id number] Director: Katelynn Macdonald MD, Phone: [phone] Serum or plasma estradiol (E 2) measurement (mass/volume)on 05-10-2023 E2 [Mass/Vol] 98.9 pg/mL . [facility] Comment on above: Adult Female Range F ollicular phase 12.5 - 166.0 Ovulation phase 85.8 - 498.0 Luteal phase 43.8 - 211.0 Postmenopausal <6.0 - 54.7 1st trimester 215.0 - >4300.0Roche ECLIA methodology Serum or plasma insulin mariam urement (units/volume)on 05-10-2023 Insulin Qn 7.0 u[iU]/mL 2.6-24.9 [facility] Comment on above: Performed at: [id number] [place] [id number] Director: Theron Roblero PhD, Phone: [phone] Serum or plasma progesterone measurement (mass/volume)on 05-10-2023 Progesterone [Mass/Vol] 0.1 ng/mL . [facility] Comment on above: Follicular phase 0.1 - 0.9 Luteal phase 1.8 - 23.9 Ovulation phase 0.1 - 12.0 First trimester 11.0 - 44.3 Second trimester 25.4 - 83.3 Third trimester 58.7 - 214.0 Postmenopausal 0.0 - 0.1Performed at: [facility] [address] [place], [place] [id number] Director: Theron Roblero PhD, Phone: [phone] Serum or plasma thyroperoxid ase antibody assay (units/volume)on 05-10-2023 TPO Ab Qn 11 [IU]/mL 0-34 [facility] Thyroglobulin [Mass/volume] in Serum or Plasmaon 05-10-2023 Thyroglobulin [Mass/Vol] <1.0 [IU]/mL 0.0-0.9 [facility] [facility] Comment on above: Thyroglobulin Antibo dy measured by PortafareMethodologyPerformed at: [employer] [id number] [place], [place] [id number] Director: Theron Roblero PhD, Phone: [phone] XR LUMBAR SPINE AP, LATERAL, FLEXION AND [...] Yung Perry on 05/05/2023 1:28 PM Normal [facility] Coding Summaryon 03-20-2023 Coding Summary HTMLBase 64 YrxlhyrnTCm3kTy+PGhlYWQ+ FD8FYAGwB84omALdrX8mR2OZ TElOSywgQVBQTElOSyIgbmFt BQ5zxAVbOLUz IC8+QM8oOYXhErnadCMjg5R5 dSR6V45fzq4kVUtwyUK8NSKw MkNbqrjzf8pmgAc9FBqwEwzc OyBt NMByhI63MKH9gE17Ey09tGJw bOGdq1ympJs6AyUrXBCeOQV7 aEfoUNffn7VbUNWvN55taQMw c2U6 RSXyaDkyjZAzUqGmwHY0fJ5q AJshipdca4jopelsRuc0ef60 xTNgb2Q6eLL8B3UlxiK2SWLo bGQg BwiyzZTVbC3rdgfac2bbhajl FqUeHAOqLBb9YLs2CUZjyQls OwKtPU38PPE9GDHacbMwY8Xk LWFs xAtgPzV8o9B2Qj1JJ8SGOmjf M7OQVBGZAJhhlWQ+IK93xl31 F8PzMtqeGbh7XVLyOND2tFK4 aD0n JILiWEcrs7K6nAX2F2YtkqBw mf8zz3xpCGQsBHudO89onXAs u7V1XZUgpIX6WPEfjNieNqVg aG93 Oyc+RZJntIeiq5YaHfofc5pe y1tzkVp5RujrCWRbeyXvxAzq XQJ5z6LzHc3kDJMbfZT3sLX5 aD0i HwRbWnN5DQcwG603QmYgnYNt KuyqV32sK9WtdWW+PHRyPjx0 RJRyeCswDP1sH5PqHPIznzfe bGVm lRndBY4kLDRatqkrNLTlpQ2f HFOmQ5t2XsOlTsJ1JFnuN0Sc WBAbscarWk62wF0pFrWkVqR9 MGlu Z6HbpwC5YGXmwOXnIQecXQO1 W73ox3T0XIQsBKUyWRR9gED7 eW8hlUqfcduodEEhtMqldzXc dGlj FPftMGsmK822JFUlbDtiAdJw ZGluZyBEYXRlOiAgMTIvMTgv MjAyMzwvdGQ+ZGCpGQQ1sBnc PSAn lGSpYFkvUa0eeMybwNuaMN7j MLWmvrvuTNJmhX2sIVCboNMt pCghDI8qGWHfohwag249OqYf MHB0 BYXwhRQnH2QagZ5iFoCcJIOx JMGpG7EnaGThFIjrJ822KFrj LmP0BFYxgkAeY6RoNDSwcGtj OiB0 z7E2Uj2He8BythdzN4RjbZKe KlVoQuhhGWd0U3GoAxfpuJP+ IA78NLFkZP75LMw6CBI4yMlg PSdi ONGpP3TkfS4uTaTcDUReFFJw Oyc+PHRhYmxlIHdpZHRoPScx LDYfBeDeeLskPR5tKb7eWTGq LWNv sPyedYWaRiSuz5mwVWMyLCrx FK7tyXrqK9MghBK1HNIht6h4 Lp67O98jW0RrtDE+PGNvbCB3 aWR0 pP2gSsBxGrB7ADdjB275NnIq iZVkVntxk5isd1loeUv4HcA2 KPQfmzBliNiiZCG0t9YmCc15 Y29s IHdpZHRoPSIxNSUiIHZhbGln ak4luT4fFq7+LCSdoAJ3hQZ0 uN7pUuItCtQ6ZVbcS025AiTm cCIv Qkbie0uva5twrKu3VyBqFFFa rdWobXxqHWQ4h4AxCd85K4Kl xVpvf8XgOyr0dw24wXXvy8N9 bGU9 V5NfXTBzncskdESqsBqqZY6p MYEufblzFTQqaT4xVIKqM4a7 ZkUsNfB5SEdrX0FfjxY9GTXy bGQg LFZtyYHIkG8ecsqyq3xeshmj TeCxXIUyMQp5AUr2ZDLhrVrn EuQcYGZ0NyL1REA2fEAslI5o bGln crvzjH3iXuv+AFI7aAByiAHX OD5wSqwgcRI+ZVXbKCR5cDxt OEgfLJEfpR2hJIZjH0p3KxWb LjA1 RTbeP5WarnO4BWDvfKGeGVCs rBXVsF8gcosto1muawmsMfLc ZXIlDYq9SSy7CZOwfAsaRpLz ZWZ0 WbK3GFY2yVJpiM3aiPfnrcne gF9wFji+UxqzyUlfVFD3XGe6 B8OoQzo6GBUxrJogXX6cyDPs ZGlu Fs6dtSzutYsoLP9qANUkgzqb v441ReJym3jgEXZdqEFyRQwv HXR2Y43vq3Y8DITbYAQoFFC8 dGV4 vZ1ueHwmcjmlhDIezTxwzrIx kTcqIPksVKqrO883NCKsyLrc JqChZYa9G4PtQaf9KQOioCxh ZT0n fMLzOZjhIv7diRgzkCquIO3z XPFvafmoy705XyQoi5pdEXNz uFMhUEiiIHV8W17nb5R9NXRp MDAw CCN6vIM1oZ5ejFzdhzzhsOYl yOukwcLssBnkMSjqKLaxB033 NZKueRyzSeIzhTy4F0GkMhl9 ZCBz bBiqCN2txXEuLAvvAq6tcJcw mExxII3xSFScnxgip123RyYe u4exBMFvyJHoJTypERH5D60p b3I6 IAOqXUQdFTI1zAY1vN5peDcn bjogbGVmdDsgdmVydGljYWwt ITcsK814CXUwvBttUcBazWcq bnQg OIjnRMb1B9TqZnxdmIL+PC90 MHPaXO54mKYisFPeb1pruFq5 KqIzLGSwBZZ6oSwiBViep0Ri ZXIt Z25auONsl2Z8EGGwtIvsjPVk AwOhyHL1iI5yFZewdzyic5jl fsdwXhvos0rygg39wR08V73q IHdp GTJnKRCsTMQdSRUfaZmrcs5w gC5iOx9+PBPkxSS2aUE8zO4k AFZdBiT0ZTxgO240ZyDmhFWs Pjxj e2dly7hgdPs3YyM9BPOzwkCf vFcuKLQ3o1RiPb94B47jNCwa QSJfUHQaJSLwAWCvnNulwt3s dG9w Ii8+SATenFG4eYJ8pJ9yUdPx MdD7EUsdO877TvZjuDMuLrtd L57cJ8MvpPY+BFGxUal5CHBw dHls KH5jgCXtJWmgDg7oYJP1WqFj CuBlFHelF8WcJUPlqpkeqxxi jST9IVRhJTJmvT65Gp4dcTnw MTBw pOZOeK0hwyhuk7xpqqyhYeTy UODvYOq6NJe9ASVtrAxpWsPj EQC4FuZ6TDV2cPWonA4luCuc bjog nV0fV6ZfZPGnvprlDb83dX0j WrToPbB6EGhhThy+D70MD0fM LCBBTUFOREEgREFXTjwvdGQ+ PHRk XGR5qOsoOOesHKZxpL7lUYXk N9n4AnFsIhV6QQjbV9FcWXZy ozzkFx94pJ5jBcXiQpR5GKgy O2Zv cuX5AUTabNCjFYooTSC4M17k k9K6TTWaSAHbDQL5uHF2fX3b bGlnbjogbGVmdDsgdmVydGlj YWwt SUieV319YWNcoHkeUlX8EaFn GsG2EBJ8U0LaZgm0PQYdoIfz OT2zkMKhLJrlVk2kfVyivGpp MC4w PCYpnxrsOLDsdY1qHQUvoDVt lAusWM5sDAYoybuue132GdMc ONZ6OTZcoJGaJ7FoaP5lHfUl MDAw XKNpP7LkqVBqBEcrV226TXmx JnS9PQXnxjNfO8XzHQVoqPub RfB2v0R0Jj04YBYWKOYtmqda dGQ+ UNRyJTF3eLwzLDmmHYFnjH0b MHNwG3h1JdFxZvU1ALevF1Th RABrscvhSv78sH7jIiEmVsL4 MGlu Y0IdznS1XGNksGJwQRabGTR6 P79if0I9YJEbJZDpZHX3mRB2 wG9rgNagbyqoyLEpdScqwwYq dGlj OQteFEqrR733JCUgfTjlNzEL TUFMRTwvdGQ+UFHqFOW3eYmy GAbuHNCyhN1aYQBjG2g4MjTg LjA1 HJpqD3TnEJNbptstWk29sT8s CdCmOaE8CUpkK5XjdoN2ZINm aQAbYJxuTPB8W92eh8F9XTLx MDAw FNX0mJZ0sD7anLxefghajTNt dXrammPthDmcOIvoBRpuA093 IOYbvAtiOh4ZRI15DR26K0Cv Pjwv dGFibGU+PHRhYmxlIHdpZHRo SZqjRHRzRhOkeEzcTE1fZr1i FTExEMMmjSulwBLmGkMtq3uk YXBz XQydHZ8svKsdX2VscDX5NGMv a6x5Ho68G31tS1BlsNH+PGNv wWZ3zHR0sV1uZwCrNlY5CCow Z249 VyNdxQQxWqvni9kbe9qsyCq0 FuClIVGwaeIzxAgnHFL7j2Ll Ua31M62yMRmlMHJsJRVvNOVw IHZh tAtfto4iyV2zRl3+PGNvbCB3 zNO7sO7gNhUuHwD7NTrsZ139 FpEobWZjNhndS76oV6KxnEZ+ PHRy Hcc7PMEloPmsLN0tuFHzLUmk Xk0uWZV8ZcXiUgPuNOgrE1Zo NITqagnqsuertTO5PUTsDMDc aW47 Qu2uoJfjCv6sHZYbWZV4URAd xVBfP5UpjH6yQeVjYRUkOTKu W0PitZDjRWutN941ZHtfJkD8 IHZl ryYdE1BkPXWgsZeoLuJ5z3Q0 Mc4HmEignCLdDI3vZzIbPHr6 V4NuTho9JVLcjSenZD5wfGZc ZGlu Lg6vtLkogLwpZA1qUUIjbpka b988DsLhp7dgZWKfbCDwEYkv SPZ9V42hi4I8EDRzYAOgZUI4 dGV4 yP7xtJlcvhdqoWUldZocjbXj uHpxOIcaTGszB948KKAbuIos ZoITVwo5A5DxBle9ZUOvmUnl ZT0n aMOlDNcwCs2lvBprdHrpDV7w RDXpkupbe975MiZcz7aiCKSc aEVeMKaxSLY7Q38jc8H2GCYi MDAw PQV3eVX4yR3zwSlstrjtzSYg gCpkqwPmtIfkSSmuGByeM129 BWYbrUjqRf0FUer7F0FpUou1 ZCBz qQocQV8egABhDPmvQb3vwJgj xRkmJX0nRRDwoexzu920ZxZj e5yePQLtpPTfIRhdVTD8G68w b3I6 YERwMRQwYMX7hJE9uK6kvHes bjogbGVmdDsgdmVydGljYWwt UPzcC239QYOdyBrjQqAfjROr Ojwv dGQ+TT57cd30I0CtOemaFli9 GSMtOQJ0mDM7iK9uARThOVyq a6M7pWW2V3CkobTpmc7tr4zw YXBz ZTo (more content not included)... Normal [facility] ED Clinical Summaryon 2022 ED Clinical Summary [facility] ? Urgent Care [address] [place], [place] [id number] Clinical Summary PERSON INFORMATION Name: KARUNA DUMONT Age: 42 Years Sex: FEMALE : 1980 MRN: Acct#: Visit Reason: UC - Finger/Thumb Injury; RT RING FINGER INJURY Arrival: 03/09/2023 10:15:32 Discharge: 03/09/2023 12:03:00 LOS: 000 01:48 Check In: 03/09/2023 10:15:32 Checkout: 03/09/2023 12:03:00 Address: [address] [facility] [address] PCP: Johnathon Winter MD PROVIDER INFORMATION Provider [...] With: Address: When: YUNG LAWS DO [address] [email or web address] [address] [place] [address] Within 3 to 5 days Comments: Diagnosis [...] verbalizes understanding of instructions given Comment: Normal [facility] ED Patient Summaryon 023 ED Patient Summary [facility] ? Urgent Care [address] [place] [id number] PATIENT DISCHARGE INSTRUCTIONS Patient Information Name: KARUNA DUMONT Age: 42 Years Date of : 1980 [facility]: [id number] Reason For Visit: UC - Finger/Thumb Injury; RT RING FINGER INJURY Arrival Time: 03/09/2023 10:15:32 Primary Care Physician: Johnathon Winter MD Attending Physician: Sanchez John Comment: Patient Education With: Address: When: YUNG LAWS DO [address] [email or web address] [address] [place] [address] Within 3 to 5 days Comments: Diagnosis [...] or cold (more content not included)... Normal [facility] Urgent Care [place] 023 Urgent Care Record [facility] ? 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 It is important for you to follow up with a doctor, nurse practitioner, or physician?s machine assistant for ongoing care. If your symptoms [...] so we can reach you if necessary. [facility] has provided you with a complete list of medications post discharge. Please inform your primary health care nurse/provider of your visit and for further instruction [...] of your st (more content not included)... [facility] XR Finger Righton 03-09-2023 XR [...] MD 03/09/23 11:56 a Technologist: Vannesa DANGELO [facility] No Panel Informationon 10-11 No acute bony abnormalities are noted [facility] RIS CONSOLIDATED EXAMINATION: THREE XRAY [...] well maintained. Soft tissue swelling. Calcaneal spurs [facility] RIS CONSOLIDATED Miller Romo MD - 10/11/2022 EXAMINATION: [...] IMPRESSION: No acute bony abnormalities are noted [facility] Radiology Study observation (narrative) GIANA SAVAGE [facility] No Panel InformationOrdered By: Miller Romo on 10-11-2022 [facility] Work Phone: XR ANKLE RIGHT (MIN 3 [...] Miller Romo MD 10/11/22 Final result Normal [facility] XR FOOT RIGHT (MIN 3 VIEWS)o [...] Miller Romo MD 10/11/22 Final result Normal [facility] PAP ACOG PANEL 2: 30 to 65on 07-16-2022 . . Normal [facility] Comment on above: Result Comment: Perf ormed at: WB Performed By: #### [id number] #### [facility] [address] [address] [address] Dang Kirby Age Gdln ACOG Testing 30-65 Normal [facility] Comment on above: Performed By: #### 4 [id number] #### [facility] [address] [address] [address] Dang Kirby DIAGNOSIS: Comment Normal [facility] Comment on above: Result Comment: NEGA TIVE FOR INTRAEPITHELIAL LESION OR MALIGNANCY. THIS SPECIMEN WAS RESCREENED PART OF OUR BODY SHOP MANAGER PROGRAM. Performed at: WB Performed By: #### [id number] #### [facility] [address] [place] [address] Dr. Dang Kirby HPV Aptima Negative Normal Negative [facility] Comment on above: Result Comment: This nucleic acid amplification test detects fourteen high-risk HPV types (16,18,31,33,35,39,45,51,52,56,58,59,66,68) without differentiation. Performed at: =G Performed By: #### 4 [id number] #### [facility] [address] [place] [address] Dr. Dang Kirby HPV Genotype Reflex Comment Normal [facility] Comment on above: Result Comment: Crit eria not met, HPV Genotype not performed. Performed at: WB Performed By: #### 4 [id number] #### [facility] [address] [place] [address] Dr. Dang Kirby Methodology: Comment Normal [facility] Comment on above: Result Comment: This liquid based ThinPrep(R) pap test was screened with the use of an image guided system. Performed at: WB Performed By: #### [id number] #### [facility] [address] [place] [address] Dr. Dang Kirby Note: Comment Normal [facility] Comment on above: Result Comment: The Pap smear is a screening test designed to aid in the detection of premalignant and malignant conditions of the uterine cervix. It is not a diagnostic procedure and should not be used as the sole means of detecting cervical cancer. Both false-positive and false-negative reports do occur. . Performed at: WB Performed By: #### [id number] #### [facility] [address] [address] [address] Dang Kirby Performed by: Comment Normal [facility] Comment on above: Result Comment: Flavia Stanford, [employer] [facility] (ASCP) Performed at: WB Performed By: #### [id number] #### [facility] [address] [address] [address] Dang Kirby QC reviewed by: Comment Normal [facility] Comment on above: Result Comment: Valentino Victor, [place] [facility] Performed at: WB Performed By: #### 4 [id number] #### [facility] [address] [address] [address] Dang Kirby Specimen adequacy: Comment Normal [facility] Comment on above: Result Comment: Sati sfactory for evaluation. No endocervical component is identified. Performed at: WB Performed By: #### 4 [id number] #### [facility] [address] [address] [address] Dang Kirby MG MAMM DIAGNOSTIC 3D RAMA CA Don 04-29-2022 MG MAMM DIAGNOSTIC 3D RAMA CAD Patient: KARUNA DUMONT Exam Date: 04/29/2022 : 1980 Gender:F Ordering : DR SANJEEV LOPEZ . Admission #: [id number] Family : Order #: [id number] CLICK HERE TO VIEW EXAM RADIOLOGY REPORT PROCEDURE: MAMMOGRAM DIAGNOSTIC 3D BILATERAL CAD, 04/29/2022, 10:05 ULTRASOUND BREAST RIGHT LIMITED, 04/29/2022, 11:04 COMPARISON: None. INDICATIONS: Pain of breast Calculator Name NCI Breast Cancer Risk Assessment Tool 5 Year Breast Cancer Risk Not Reported. Lifetime Breast Cancer Risk Not Reported. Personal Breast Cancer No Personal Ovarian Cancer No Treatments None Family Cancers None LOCATION: [facility] BREAST COMPOSITION: Scattered areas fibroglandular [...] M.D. on 04/29/2022 at 14:55 Normal [facility] US BREAST RIGHT LIMITEDon US BREAST RIGHT LIMITED Patient: KARUNA DUMONT Exam Date: 04/29/2022 : 1980 Gender:F Ordering : DR SANJEEV LOPEZ . Admission #: [id number] Family : Order #: [id number] CLICK HERE TO VIEW EXAM RADIOLOGY REPORT PROCEDURE: MAMMOGRAM DIAGNOSTIC 3D BILATERAL CAD, 04/29/2022, 10:05 ULTRASOUND BREAST RIGHT LIMITED, 04/29/2022, 11:04 COMPARISON: None. INDICATIONS: Pain of breast Calculator Name NCI Breast Cancer Risk Assessment Tool 5 Year Breast Cancer Risk Not Reported. Lifetime Breast Cancer Risk Not Reported. Personal Breast Cancer No Personal Ovarian Cancer No Treatments None Family Cancers None LOCATION: [facility] BREAST COMPOSITION: Scattered areas fibroglandular [...] M.D. on 04/29/2022 at 14:55 Normal [facility] CT CERVICAL SPINE WO CONTRAS Ton [...] Oziel Fox MD 02/16/22 Final result Normal [facility] XR CLAVICLE LEFTon XR CLAVICLE LEFT [...] Miller Romo MD 02/16/22 Final result Normal [facility] XR SHOULDER LEFT (MIN 2 VIEW [...] Emil Flores MD 02/16/22 Final result Normal [facility] CBC with Auto Differentialon 01-03-2022 Absolute Eos # 0.10 [facility] [employer] Absolute Lymph # 1.60 [facility] Absolute [place] # 0.40 [facility] [employer] Basophils (Bld) [#/Vol] 0.00 10*3/uL [facility] Basophils/100 WBC (Bld) 1 % 0 - 2 % B ON [facility] Eosinophils/100 WBC (Bld) 2 % 1 - 4 % [facility] Hematocrit (Bld) [Volume fraction] 46.0 % 36 - 46 % [facility] Hemoglobin (Bld) [Mass/Vol] 15.4 g/dL 12 - 16 g/dL [facility] Interpretation and review of laboratory results Abnormal [facility] Lymphocytes/100 WBC (Bld) 29 % 24 - 44 % [facility] MCH (RBC) [Entitic mass] 28.6 pg 26 - 34 pg [facility] MCHC (RBC) [Mass/Vol] 33.4 g/dL 31 - 3 7 g/dL [facility] MCV (RBC) [Entitic vol] 85.9 fL 80 - 100 fL [facility] Monocytes/100 WBC (Bld) 8 % 2 - 11 % B ON [facility] Platelet distribution width (Bld) [Ratio] 14.1 % 12.5 - 15.4 % [facility] Platelet mean volume (Bld) [Entitic vol] 7.6 fL 6 - 12 fL [facility] Platelets (Bld) [#/Vol] 277 10*3/uL [facility] RBC (Bld) [#/Vol] 5.36 10*6/uL High 4 - 5.2 m/uL [facility] Segmented neutrophils/100 WBC (Bld) 60 % 36 - 66 % [facility] Segs Absolute 3.40 [facility] WBC (Bld) [#/Vol] 5.6 10*3/uL [facility] CBC with Diffon 01-03-2022 Abs. Basophil 0.00 k/uL Normal 0.0-0.2 [facility] Comment on above: Performed By: #### H CG, LIP, MG, CDP, CMPX #### [facility] [address] [place] [address] Head Of Housekeeping: Estevan Corcoran MD Abs.Neutrophil (Seg) 3.40 k/uL Normal 1.8-7.7 [facility] Comment on above: Performed By: #### H CG, LIP, MG, CDP, CMPX #### [place] [address] Head Of Housekeeping: Estevan Corcoran MD Basophils/100 WBC (Bld) 1 % Normal 0-2 [facility] Comment on above: Performed By: #### H CG, LIP, MG, CDP, CMPX #### [place] [address] Head Of Housekeeping: Estevan Corcoran MD Eosinophils (Bld) [#/Vol] 0.10 10*3/uL Normal 0.0-0.4 [facility] Comment on above: Performed By: #### H CG, LIP, MG, CDP, CMPX #### [place] [address] Head Of Housekeeping: Estevan Corcoran MD Eosinophils/100 WBC (Bld) 2 % Normal 1-4 [facility] Comment on above: Performed By: #### H CG, LIP, MG, CDP, CMPX #### [place] [address] Head Of Housekeeping: Estevan Corcoran MD Erythrocyte distribution width (RBC) [Ratio] 14.1 % Normal 12.5-15.4 [facility] Comment on above: Performed By: #### H CG, LIP, MG, CDP, CMPX #### [place] [address] Head Of Housekeeping: Estevan Corcoran MD Hematocrit (Bld) [Volume fraction] 46.0 % Normal 36-46 [facility] Comment on above: Performed By: #### H CG, LIP, MG, CDP, CMPX #### [place] [address] Head Of Housekeeping: Estevan Corcoran MD Hemoglobin (Bld) [Mass/Vol] 15.4 g/dL Normal 12.0-16.0 [facility] Comment on above: Performed By: #### H CG, LIP, MG, CDP, CMPX #### [place] [address] Head Of Housekeeping: Estevan Corcoran MD Lymphocytes (Bld) [#/Vol] 1.60 10*3/uL Normal 1.0-4.8 [facility] Comment on above: Performed By: #### H CG, LIP, MG, CDP, CMPX #### [place] [address] Head Of Housekeeping: Estevan Corcoran MD Lymphocytes/100 WBC (Bld) 29 % Normal 24-44 [facility] Comment on above: Performed By: #### H CG, LIP, MG, CDP, CMPX #### [place] [address] Head Of Housekeeping: Estevan Corcoran MD MCH (RBC) [Entitic mass] 28.6 pg Normal 26-34 [facility] Comment on above: Performed By: #### H CG, LIP, MG, CDP, CMPX #### [place] [address] Head Of Housekeeping: Estevan Corcoran MD MCHC (RBC) [Mass/Vol] 33.4 g/dL Normal 31-37 [facility] Comment on above: Performed By: #### H CG, LIP, MG, CDP, CMPX #### [place] [id number] Head Of Housekeeping: Estevan Corcoran MD MCV (RBC) [Entitic vol] 85.9 fL Normal 80-100 M [facility] Comment on above: Performed By: #### H CG, LIP, MG, CDP, CMPX #### [place] [address] Head Of Housekeeping: Estevan Corcoran MD Monocytes (Bld) [#/Vol] 0.40 10*3/uL Normal 0.1-1.2 [facility] Comment on above: Performed By: #### H CG, LIP, MG, CDP, CMPX #### [place] [address] Head Of Housekeeping: Estevan Corcoran MD Monocytes/100 WBC (Bld) 8 % Normal 2-11 [facility] Comment on above: Performed By: #### H CG, LIP, MG, CDP, CMPX #### [place] [address] Head Of Housekeeping: Estevan Corcoran MD Neutrophil (Seg) 60 % Normal 36-[address] [facility] Comment on above: Performed By: #### H CG, LIP, MG, CDP, CMPX #### [place] [address] Head Of Housekeeping: Estevan Corcoran MD Platelet mean volume (Bld) [Entitic vol] 7.6 fL Normal 6.0-12.0 [facility] Comment on above: Performed By: #### H CG, LIP, MG, CDP, CMPX #### [place] [address] Head Of Housekeeping: Estevan Corcoran MD Platelets (Bld) [#/Vol] 277 10*3/uL Normal 140-450 [facility] Comment on above: Performed By: #### H CG, LIP, MG, CDP, CMPX #### [id number] [place] [address] Head Of Housekeeping: Estevan Corcoran MD RBC (Bld) [#/Vol] 5.36 10*6/uL High 4.0-5.2 [facility] Comment on above: Performed By: #### H CG, LIP, MG, CDP, CMPX #### [address] [address] Head Of Housekeeping: Estevan Corcoran MD WBC (Bld) [#/Vol] 5.6 10*3/uL Normal 3.5-11.0 [facility] Comment on above: Performed By: #### H CG, LIP, MG, CDP, CMPX #### [address] [address] Head Of Housekeeping: Estevan Corcoran MD CT ABDOMEN PELVIS W [...] Papito Mishra MD 01/03/22 Final result Normal [facility] CT ABDOMEN PELVIS W IV CONTR AST Additional Contrast? Noneon 01-03-2022 1. Fluid within smal l bowel loops and ascending colon which can be seen as sequela of a gastroenteritis. 2. Prior appendectomy. Prior cholecystectomy. 3. Fatty liver. 4. Mild colonic diverticulosis. 5. Small midline fat containing periumbilical hernia. 6. No clear evidence for small bowel obstruction. [facility] RIS CONSOLIDATED EXAMINATION: CT OF THE ABDOMEN [...] No clear evidence for small bowel obstruction. [employer] Work Phone: Radiology Study observation (narrative) GIANA SAVAGE [place] Phone: CT ABDOMEN PELVIS W IV CONTR AST Additional Contrast? NoneOrdered By: Papito Mishra on 01-03-2022 [facility] [employer] Phone: Comp Metabolic Pr/rfx MGon 1 ALT [Catalytic activity/Vol] 28 U/L Normal - [facility] Comment on above: Performed By: #### H CG, LIP, MG, CDP, CMPX #### [facility] [address] [place] [address] Head Of Housekeeping: Estevan Corcoran MD (cont.) Normal [facility] Comment on above: Result Comment: Aver age GFR for 30-39 years old: 107 mL/min/1.73sq m Chronic Kidney Disease: <60 mL/min/1.73sq m Kidney failure: <15 mL/min/1.73sq m eGFR calculated using average adult body mass. Additional eGFR calculator available at: http://www.osmogames.com/multiple_crcl_2012.htm Performed By: #### H CG, LIP, MG, CDP, CMPX #### [place] [address] Head Of Housekeeping: Etsevan Corcoran MD Albumin [Mass/Vol] 4.3 g/dL Normal 3.5-5.2 [facility] Comment on above: Performed By: #### H CG, LIP, MG, CDP, CMPX #### [place] [address] Head Of Housekeeping: Estevan Corcoran MD Albumin/Glob Ratio 1.4 Normal 1.0-2.5 [facility] Comment on above: Performed By: #### H CG, LIP, MG, CDP, CMPX #### [place] [address] Head Of Housekeeping: Estevan Corcoran MD Alkaline Phos 105 U/L High 35-104 [facility] Comment on above: Performed By: #### H CG, LIP, MG, CDP, CMPX #### [place] [address] Head Of Housekeeping: Estevan Corcoran MD Anion gap [Moles/Vol] 13 mmol/L Normal 9-17 [facility] Comment on above: Performed By: #### H CG, LIP, MG, CDP, CMPX #### [place] [id number] Head Of Housekeeping: Estevan Corcoran MD AST [Catalytic activity/Vol] 26 U/L Normal <32 [facility] Comment on above: Performed By: #### H CG, LIP, MG, CDP, CMPX #### [place] [address] Head Of Housekeeping: Estevan Corcoran MD Bilirubin [Mass/Vol] 0.3 mg/dL Normal 0.3-1.2 [facility] Comment on above: Performed By: #### H CG, LIP, MG, CDP, CMPX #### [place] [address] Head Of Housekeeping: Estevan Corcoran MD Calcium [Mass/Vol] 8.7 mg/dL Normal 8.6-10.4 [facility] Comment on above: Performed By: #### H CG, LIP, MG, CDP, CMPX #### [place] [address] Head Of Housekeeping: Estevan Corcoran MD Chloride [Moles/Vol] 104 mmol/L Normal 98-107 [facility] Comment on above: Performed By: #### H CG, LIP, MG, CDP, CMPX #### [place] [address] Head Of Housekeeping: Estevan Corcoran MD CO2 [Moles/Vol] 21 mmol/L Normal 20-31 [facility] Comment on above: Performed By: #### H CG, LIP, MG, CDP, CMPX #### [place] [address] Head Of Housekeeping: Estevan Corcoran MD Creatinine [Mass/Vol] 0.60 mg/dL Normal 0.50-0.90 [facility] Comment on above: Performed By: #### H CG, LIP, MG, CDP, CMPX #### [address] [id number] Head Of Housekeeping: Estevan Corcoran MD GFR, Amer >60 Normal >[address] [facility] Comment on above: Performed By: #### H CG, LIP, MG, CDP, CMPX #### [place] [address] Head Of Housekeeping: Estevan Corcoran MD GFR,non Amer >60 Normal >60 [facility] Comment on above: Performed By: #### H CG, LIP, MG, CDP, CMPX #### [place] [address] Head Of Housekeeping: Estevan Corcoran MD Glucose [Mass/Vol] 105 mg/dL High 70-99 [facility] Comment on above: Performed By: #### H CG, LIP, MG, CDP, CMPX #### [place] [place] [id number] Head Of Housekeeping: Estevan Corcoran MD Potassium [Moles/Vol] 3.5 mmol/L Low 3.7-5.3 [facility] Comment on above: Performed By: #### H CG, LIP, MG, CDP, CMPX #### [place] [address] Head Of Housekeeping: Estevan Corcoran MD Protein [Mass/Vol] 7.4 g/dL Normal 6.4-8.3 [facility] Comment on above: Performed By: #### H CG, LIP, MG, CDP, CMPX #### [address] [id number] Head Of Housekeeping: Estevan Corcoran MD Sodium [Moles/Vol] 138 mmol/L Normal 135-144 [facility] Comment on above: Performed By: #### H CG, LIP, MG, CDP, CMPX #### [facility] [address] [place] [address] Head Of Housekeeping: Estevan Corcoran MD Urea nitrogen [Mass/Vol] 12 mg/dL Normal 6-20 [facility] Comment on above: Performed By: #### H CG, LIP, MG, CDP, CMPX #### [facility] [address] [place] [address] Head Of Housekeeping: Estevan Corcoran MD Comprehensive Metabolic Pane l w/ Reflex to MGon 01-03-2022 Albumin [Mass/Vol] 4.3 g/dL 3.5 - 5.2 g/dL [facility] Albumin/Globulin [Mass ratio] 1.4 {ratio} 1 - 2.[address] [facility] ALP (Bld) [Catalytic activity/Vol] 105 U/L High 35 - 104 U/L [facility] ALT [Catalytic activity/Vol] 28 U/L 5 - 33 U/L [facility] Anion gap [Moles/Vol] 13 mmol/L 9 - 17 mmol/L [facility] AST [Catalytic activity/Vol] 26 U/L NINF - 32 U/L [facility] Bilirubin [Mass/Vol] 0.3 mg/dL 0.3 - 1 .2 mg/dL [facility] Calcium [Mass/Vol] 8.7 mg/dL 8.6 - 10. 4 mg/dL [facility] Chloride [Moles/Vol] 104 mmol/L 98 - 10 7 mmol/L [facility] CO2 [Moles/Vol] 21 mmol/L 20 - 31 mmol/L [facility] Creatinine [Mass/Vol] 0.6 mg/dL 0.5 - 0.9 mg/dL [facility] GFR >60 60 - PI NF mL/min [facility] GFR Non- >60 60 - PINF mL/min [facility] GFR/1.73 sq M.predicted MDRD (S/P/Bld) [Vol rate/Area] [facility] Comment on above: Average GFR for 30-3 9 years old: 107 mL/min/1.73sq m Chronic Kidney Disease: <60 mL/min/1.73sq m Kidney failure: <15 mL/min/1.73sq m eGFR calculated using average adult body mass. Additional eGFR calculator available at: http://www.osmogames.com/multiple_crcl_2012.htm Glucose [Mass/Vol] 105 mg/dL High 70 - 99 mg/dL [facility] Interpretation and review of laboratory results Abnormal [facility] Potassium [Moles/Vol] 3.5 mmol/L Low 3.7 - 5.3 mmol/L [facility] Protein [Mass/Vol] 7.4 g/dL 6.4 - 8.3 g/dL [facility] Sodium [Moles/Vol] 138 mmol/L 135 - 144 mmol/L [facility] Urea nitrogen (BldV) [Mass/Vol] 12 mg/dL 6 - 20 mg/dL [facility] HCG Qualitative, Serumon hCG Qual Negative NEGATIVE [facility] Comment on above: Specimens with hCG l evels near the threshold of the test (25 mIU/mL) may give a negative or indeterminate result. In such cases, another test should be performed with a new specimen in 48-72 hours. If early is suspected clinically in this setting, correlation with quantitative serum b-hCG level is suggested. [facility] the use of plasma for this test. This has not been cleared or approved by the U.S. Food and Drug Administration. The FDA has determined that such clearance is not necessary. [facility] HCG Screen, Bloodon 01-04-20 HCG Screen, Blood Negative Normal NEG [facility] Comment on above: Result Comment: Spec imens with hCG levels near the threshold of the test (25 mIU/mL) may give a negative or indeterminate result. In such cases, another test should be performed with a new specimen in 48-72 hours. If early is suspected clinically in this setting, correlation with quantitative serum b-hCG level is suggested. [facility] has confirmed the use of plasma for this test. This has not been cleared or approved by the U.S. Food and Drug Administration. The FDA has determined that such clearance is not necessary. Performed By: #### H CG, LIP, MG, CDP, CMPX #### [address] [address] Head Of Housekeeping: Estevan Corcoran MD Lipaseon 01-03-2022 Lipase [Catalytic activity/Vol] 20 U/L Normal 13-60 [facility] Comment on above: Performed By: #### H CG, LIP, MG, CDP, CMPX #### [address] [address] Head Of Housekeeping: Estevan Corcoran MD Lipase [Catalytic activity/Vol] 20 U/L 13 - 60 U/L [facility] Magnesiumon 01-03-2022 Magnesium [Mass/Vol] 2.1 mg/dL Normal 1.6-2.6 [facility] Comment on above: Performed By: #### H CG, LIP, MG, CDP, CMPX #### [address] [address] Head Of Housekeeping: Estevan Corcoran MD Magnesium [Mass/Vol] 2.1 mg/dL 1.6 - 2 .6 mg/dL [facility] Microscopic Urinalysison Bacteria, UA MANY Abnormal None [facility] Epithelial Cells UA TOO NUMEROUS TO COUNT [facility] Interpretation and review of laboratory results Abnormal [facility] Other Observations UA Utilizing a urinal ysis as the only screening method to exclude a potential uropathogen can be unreliable in many patient populations. Rapid screening tests are less sensitive than culture and if UTI is a clinical possibility, culture should be considered despite a negative urinalysis. Abnormal NOT REQ. [facility] RBC, UA 2 TO 5 [facility] WBC, UA 2 TO 5 [facility] UA w/Reflex Cultureon 2021 Bilirubin, SemiQt,Ur Negative Normal NEG [facility] Comment on above: Performed By: #### U AX, UMICAO ####[address] [id number] Lab Director: Estevan Corcoran MD Blood, Urine LARGE Abnormal NEG [facility] Comment on above: Performed By: #### U AX, UMICAO ####[address] [address] Lab Director: Estevan Corcoran MD Clarity (U) Cloudy Abnormal CLEAR [facility] Comment on above: Result Comment: FOUL ODOR Performed By: #### U AX, UMICAO ####[address] [address] Lab Director: Estevan Corcoran MD Color (U) Yellow Normal YEL [facility] Comment on above: Performed By: #### U AX, UMICAO ####[address] [address] Lab Director: Estevan Corcoran MD Glucose Ql (U) Negative Normal NEG [facility] Comment on above: Performed By: #### U AX, UMICAO ####[address] [address] Lab Director: Estevan Corcoran MD Ketones Ql (U) Negative Normal NEG [facility] Comment on above: Performed By: #### U AX, UMICAO ####[address] [id number] Lab Director: Estevan Corcoran MD Leukocyte esterase Test strip Ql (U) Negative Normal NEG [facility] Comment on above: Performed By: #### U AX, UMICAO ####[place] [address] Lab Director: Estevan Corcoran MD Nitrite,Ur Negative Normal NEG [facility] Comment on above: Performed By: #### U AX, UMICAO ####[place] [address] lab Director: Estevan Corcoran MD PH,Ur 6.0 Normal 5.0-8.0 [facility] Comment on above: Performed By: #### U AX, UMICAO ####[place] [address] lab Director: Estevan Corcoran MD Protein Ql (U) Negative Normal NEG [facility] Comment on above: Performed By: #### U AX, UMICAO ####[place] [address] lab Director: Estevan Corcoran MD Spec. [place],Ur 1.108 High 1.005-1.03 0 [facility] Comment on above: Result Comment: POST IV CONTRAST Performed By: #### U AX, UMICAO ####[place] [address] Lab Director: Estevan Corcoran MD Urobilinogen,Ur Normal Normal NORM [facility] Comment on above: Performed By: #### U AX, UMICAO ####[place] [address] Lab Director: Estevan Corcoran MD Urinalysis with Reflex to Cu ltureon 01-03-2022 Bilirubin Urine Negative NEGATIVE [facility] Color, UA Yellow Yellow [facility] Glucose, Ur Negative NEGATIVE [facility] Interpretation and review of laboratory results Abnormal [facility] Ketones Ql (U) Negative NEGATIVE [facility] Leukocyte esterase Test strip Ql (U) Negative NEGATIVE [facility] Nitrite, Urine Negative NEGATIVE [facility] pH, UA 6.0 5 - 8 [facility] Protein, UA Negative NEGATIVE [facility] Specific [place], UA 1.108 High 1.005 - 1.03 [facility] Comment on above: POST IV CONTRAST Turbidity UA Cloudy Abnormal Clear [facility] Comment on above: FOUL ODOR Urine Hgb LARGE Abnormal NEGATIVE [facility] Urobilinogen, Urine Normal Normal [facility] Urinalysis,Microon 2 Bacteria MANY Abnormal NONE [facility] Comment on above: Performed By: #### U AXTERESAO ####[place] [address] Lab Director: Estevan Corcoran MD Epithelial cells LM Ql (Urine sed) TOO NUMEROUS TO COUNT Normal 0-5 [facility] Comment on above: Performed By: #### U AX, TERESAO ####[place] [address] lab Director: Estevan Corcoran MD Other Observations Utilizing a urinalys is as the only screening method to exclude a potential Abnormal NREQ [facility] Comment on above: Result Comment: urop athogen can be unreliable in many patient populations. Rapid screening tests are less sensitive than culture and if UTI is a clinical possibility, culture should be considered despite a negative urinalysis. Performed By: #### U AX, UMICAO ####[place] [id number] lab Director: Estevan Corcoran MD Urine RBC's 2 TO 5 Normal 0-2 [facility] Comment on above: Performed By: #### U AX, UMICAO ####[place] [id number] [place] [address] lab Director: Estevan Corcoran MD Urine WBC's 2 TO 5 Normal 0-5 [facility] Comment on above: Performed By: #### U AX, UMICAO ####[place] [id number] [place] [address] lab Director: Estevan Corcoran MD CT LUMBAR [...] leg pain. Follow-up MRI may be helpful. [facility] RIS CONSOLIDATED EXAMINATION: CT OF [...] leg pain. Follow-up MRI may be helpful. [employer] Work Phone: Radiology Study observation (narrative) [employer] Phone: CT LUMBAR SPINE WO CONTRASTO rdered By: Boyd Beatty on 08-19-2021 [employer] [facility] Work Phone: Vital Signs Date Time Vital Sign Value Performing Clinician Elena melton 06-12-2023 10:05-0400 Body height 165.1 cm Rohit Metzger MD Work Phone: [employer] 06-12-2023 10:05-0400 Body mass index (BMI) [Ratio] 38.94 kg/m2 Rohit Metzger MD Work Phone: [employer] 06-12-2023 10:05-0400 Body weight 106.14 kg Rohit Metzger MD Work Phone: [employer] 05-16-2023 13:48-0500 Body height 165.1 cm Rohit Metzger MD Work Phone: [employer] 05-16-2023 13:48-0500 Body mass index (BMI) [Ratio] 38.94 kg/m2 Rohit Metzger MD Work Phone: [employer] 05-16-2023 13:48-0500 Body weight 106.14 kg Rohit Metzger MD Work Phone: [employer] 01-02-2023 10:00-0400 Body height 162.56 cm Johnathon Winter Other [employer] Other 01-02-2023 10:00-0400 Body mass index (BMI) [Ratio] 42.91 kg/m2 Johnathon Winter Other [employer] Other 01-02-2023 10:00-0400 Body weight 113.4 kg Johnathon Winter Other [employer] Other 01-02-2023 10:00-0400 Diastolic blood pressure 82 mm[Hg] Johnathon Winter Other [employer] Other 01-02-2023 10:00-0400 Systolic blood pressure 126 mm[Hg] Johnathon Winter Other [employer] Other 2022 11:00-0400 Body height 162.56 cm Johnathon Winter Other [employer] Other 2022 11:00-0400 Body mass index (BMI) [Ratio] 44.56 kg/m2 Johnathon Winter Other [employer] Other 2022 11:00-0400 Body weight 117.75 kg Johnathon Winter Other [employer] Other 2022 11:00-0400 Diastolic blood pressure 101 mm[Hg] Johnathon Winter Other [employer] Other 2022 11:00-0400 SaO2% (BldA) [Mass fraction] 100 % Johnathon Winter Other [employer] Other 2022 11:00-0400 Systolic blood pressure 138 mm[Hg] Johnathon Winter Other [employer] Other 10-11-2022 18:45-0400 Body height 165.1 cm Roxie Garcia MD Work Phone: [employer] 10-11-2022 18:45-0400 Body mass index (BMI) [Ratio] 43.93 kg/m2 Roxie Garcia MD Work Phone: [employer] 10-11-2022 18:45-0400 Body temperature 99 [degF] Roxie Garcia MD Work Phone: [employer] 10-11-2022 18:45-0400 Body weight 119.75 kg Roxie Garcia MD Work Phone: [facility] [employer] 10-11-2022 18:45-0400 Diastolic blood pressure 108 mm[Hg] Roxie Garcia MD Work Phone: [facility] [employer] 10-11-2022 18:45-0400 Heart rate 87 /min Roxie Garcia MD Work Phone: [facility] [employer] 10-11-2022 18:45-0400 Respiratory rate 16 /min Roxie Garcia MD Work Phone: [facility] [employer] 10-11-2022 18:45-0400 SaO2% (BldA) [Mass fraction] 98 % Roxie Garcia MD Work Phone: [facility]ITAL[facility] [employer] 10-11-2022 18:45-0400 Systolic blood pressure 160 mm[Hg] Roxie Garcia MD Work Phone: [facility] [employer] 01-03-2022 13:54-0400 Diastolic blood pressure 95 mm[Hg] Teo Thomas DO [employer] [facility] [employer] 01-03-2022 13:54-0400 Heart rate 61 /min Toe Thomas DO [employer] [facility] [employer] 01-03-2022 13:54-0400 SaO2% (BldA) [Mass fraction] 100 % Teo Thomas DO [employer] [facility] [employer] 01-03-2022 13:54-0400 Systolic blood pressure 142 mm[Hg] Teo Thomas DO [employer] [facility] [employer] 01-03-2022 11:46-0400 Body height 165.1 cm Teo Thomas DO [employer] [facility] 01-03-2022 11:46-0400 Body mass index (BMI) [Ratio] 44.1 kg/m2 Teo Thomas DO [employer] [facility] [employer] 01-03-2022 11:46-0400 Body temperature 97.7 [degF] Teo Thomas DO [employer] [facility] [employer] 01-03-2022 11:46-0400 Body weight 120.2 kg Teo Thomas DO GIANA PEREZ [facility] [employer] 01-03-2022 11:46-0400 Respiratory rate 16 /min Teo Thomas DO GIANA [employer] [facility] [employer] 08-19-2021 18:03-0400 Diastolic blood pressure 98 mm[Hg] Radha Sanders MD Work Phone: [facility] [employer] 08-19-2021 18:03-0400 Heart rate 92 /min Radha Sanders MD Work Phone: [facility] [employer] 08-19-2021 18:03-0400 Respiratory rate 16 /min Radha Sanders MD Work Phone: [facility] [employer] 08-19-2021 18:03-0400 SaO2% (BldA) [Mass fraction] 96 % Radha Sanders MD Work Phone: [facility] [employer] 08-19-2021 18:03-0400 Systolic blood pressure 145 mm[Hg] Radha Sanders MD Work Phone: [facility] [employer] 08-19-2021 16:28-0400 Body height 165.1 cm Radha Sanders MD Work Phone: [facility] [employer] 08-19-2021 16:28-0400 Body mass index (BMI) [Ratio] 45.76 kg/m2 Radha Sanders MD Work Phone: [facility] [employer] 08-19-2021 16:28-0400 Body temperature 98.6 [degF] Radha Sanders MD Work Phone: [facility] [employer] 08-19-2021 16:28-0400 Body weight 124.74 kg Radha Sanders MD Work Phone: [facility] [employer] Encounters Encounter Date Encounter Type Care Provider Facility Start: 12-06-2023 End: 12-06-2023 Departed Referred DO Sanjeev Lopez Work Phone: [facility] [place] Work Phone: Start: 12-06-2023 End: 12-06-2023 ambulatory SANJEEV LOPEZ Not Available Start: 11-29-2023 Non-patient / Non-visit DO Bert Lopez Work Phone: [facility] [employer] Work Phone: Start: 11-29-2023 End: 11-29-2023 ambulatory SANJEEV JESSICA Not Available Start: 11-22-2023 End: 11-22-2023 ambulatory MARTÍN [facility] Start: 11-20-2023 End: 11-20-2023 ambulatory Christiano Rivera MD Facility:[facility] Start: 11-13-2023 End: 11-13-2023 ambulatory Christiano Rivera MD Facility:[facility] Start: 10-25-2023 Non-patient / Non-visit DO Cor ey Jessica Work Phone: [facility] Work Phone: Start: 08-23-2023 End: 08-23-2023 ambulatory KELI Resendez Facility:[facility] Start: 08-02-2023 End: 08-02-2023 ambulatory ROBERT URRUTIA Not Available Start: 07-31-2023 End: 07-31-2023 ambulatory Bhavin Montgomery MD Facility:[facility] Start: 07-19-2023 End: 07-19-2023 ambulatory SANJEEV JESSICA Not Available Start: 07-17-2023 End: 07-17-2023 ambulatory Bhavin Montgomery MD Facility:[facility] Start: 06-26-2023 End: 06-26-2023 ambulatory Bhavin Montgomery MD Facility:[facility] Start: 06-15-2023 End: 06-15-2023 ambulatory SANJEEV JESSICA Not Available Start: 06-12-2023 End: 06-12-[address] 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) Start: 06-06-2023 ambulatory RENY NO [facility] Start: 05-24-2023 Orders Only Reny barlow ASSOCIATE PROFESSOR OF [employer] Work Phone: [facility] Comment on above: Herniated lumbar int ervertebral disc (Primary Dx); Lumbar radiculopathy, chronic Start: 05-23-2023 End: 05-23-2023 ambulatory Tee Peterson Facility:[facility] Start: 05-23-2023 End: 05-23-2023 ambulatory MD Tee Peterson Work Phone: [facility] Work Phone: Start: 05-23-2023 End: 05-23-2023 Departed Referred MD Tee Peterson Work Phone: [facility] Start: 05-19-2023 End: 05-19-2023 ambulatory RENY [facility] Start: 05-16-2023 End: 05-16-[address] [facility] Start: 05-16-2023 End: 05-16-2023 Office outpatient new 30 minutes Rohit Smith MD Work Phone: 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); Pain in finger of right hand Start: 05-04-2023 End: 05-04-2023 ambulatory RENYSLOANE NO [facility] Start: 05-01-2023 End: 05-01-2023 ambulatory SANJEEV LOPEZ Not Available Start: 04-19-2023 End: 04-19-2023 ambulatory Scottie Lyn Other [employer] Other Start: 04-19-2023 Telephone encounter Scottie Lyn [facility] Start: 04-14-2023 End: 04-14-2023 Orders Only Serina Danielroe [facility] Comment on above: Back pain, unspecifi ed back location, unspecified back pain laterality, unspecified chronicity (Primary Dx) Start: 04-12-2023 End: 04-12-2023 ambulatory Johnathon Winter Other [employer] Other Start: 04-12-2023 Telephone encounter Johnathon Winter [facility] Start: 04-11-2023 End: 04-11-2023 ambulatory Johnathon Winter Other [employer] Other Start: 04-11-2023 Telephone encounter Johnathon Winter [facility] Start: 04-10-2023 End: 04-10-2023 ambulatory Johnathon Winter Other [employer] Other Start: 04-10-2023 Encounter by kriss Winter [facility] Start: 03-16-2023 End: 03-16-2023 ambulatory OSWALDO DEE Not Available Start: 03-09-2023 End: 03-09-2023 ambulatory Johnathon Winter Facility:[facility] Start: 01-30-2023 End: 01-30-2023 ambulatory Johnathon Winter Other [employer] Other Start: 01-30-2023 Telephone encounter Johnathon Winter [facility] Start: 01-02-2023 End: 01-02-2023 ambulatory Johnathon Winter Other [employer] Other Start: 01-02-2023 Office outpatient vi sit 15 minutes Johnathon Winter [facility] Start: 12-09-2022 End: 12-09-2022 ambulatory Johnathon Winter Other [employer] Other Start: 12-09-2022 Telephone encounter Johnathon Winter [facility] Start: 12-08-2022 End: 12-08-2022 ambulatory Johnathon Winter Other [employer] Other Start: 12-08-2022 Telephone encounter Johnathon Winter [facility] Start: 2022 End: 2022 ambulatory Johnathon Winter Other [employer] Other Start: 2022 Office outpatient ne w 30 minutes Johnathon Winter [facility] Start: 10-11-2022 End: 10-11-2022 Emergency department patient visit JOHNATHON WINTER [facility] Start: 10-11-2022 End: 10-11-2022 Emergency department patient visit Roxie Garcia MD Work Phone: [facility] Comment on above: Sprain of right ankl e, unspecified ligament, initial encounter (Primary Dx) Start: 07-11-2022 End: 07-11-[address] SANJEEV LOPEZ . Facility:[facility] Start: 04-29-2022 End: 04-30-[address] SANJEEV LOPEZ . Facility:[facility] Start: 02-16-2022 End: 02-16-2022 Emergency department patient visit JOHNATHON WINTER [facility] Start: 01-03-2022 End: 01-03-2022 Emergency department patient visit JOHNATHON WINTER [facility] Start: 01-03-2022 End: 01-03-2022 Emergency department patient visit Teo Thomas DO [facility] ED Comment on above: Gastroenteritis (Neetu emil Dx) Start: 08-19-2021 End: 08-19-2021 Emergency department patient visit Radha Sanders MD Work Phone: [facility] Comment on above: Herniated lumbar int ervertebral disc (Primary Dx) Procedures Date Procedure Procedure Detail Performing Clinician Start: 06-12-2023 Follow-up visit Follow-up ROHIT CAMEJO V Start: 10-11-2022 Radex ankle complete minimum 3 views Bailee Lew ASSOCIATE PROFESSOR [employer] Work Phone: Start: 01-03-2022 Urinalysis microscop ic only Zachariah Cristian ASSOCIATE PROFESSOR [employer] - SERVICE COORDIN[facility] Work Phone: Start: 01-03-2022 Urnls dip stick/tabl et rgnt auto w/o microscopy Zachariah Foster ASSOCIATE PROFESSOR [employer]ICE [employer] [facility] Work Phone: Start: 01-03-2022 Ct abdomen & pelvis w/contrast material Zachariah Foster ASSOCIATE PROFESSOR [employer] - [employer]ICE [employer] Work Phone: Start: 01-03-2022 Assay of lipase Zachariah Foster ASSOCIATE PROFESSOR [employer] - SERVICE COORDINATOR [facility] Work Phone: Start: 12-01-2021 Adult depression screening assessment Serina ALVARADO Start: 08-19-2021 Ct lumbar spine w/o contrast material Radha Sanders MD Work Phone: Plan of Treatment Date Care Activity Detail Author Start: 06-11-2024 Adult BMI Screening Adult BMI Screen ing [place] [facility] Start: 06-11-2024 Tobacco Screening Tobacco Screening [facility] Start: 05-16-2024 Adult BMI Screening Adult BMI Screen ing [facility] Start: 05-16-2024 Tobacco Screening Tobacco Screening [facility] Start: 05-08-2024 Adult BMI Screening Adult BMI Screen ing [facility] Start: 05-08-2024 Tobacco Screening Tobacco Screening [facility] Start: 04-14-2024 Adult BMI Screening Adult BMI Screen ing [facility] Start: 04-14-2024 Tobacco Screening Tobacco Screening [facility] Start: 07-19-2023 End: 07-19-2023 Patient encounter procedure 07/19/2023 1:45 PM EDT Office Visit [facility] [address] [place] [address] Vishal Martin DO [address] [place] [address] [facility] Start: 07-17-2023 End: 07-17-2023 Patient encounter procedure 07/17/2023 10:00 AM EDT Office Visit [facility] [address] [place] [phone] Sanjeev Lopez DO [address] [place] [address] [facility] Start: 06-12-2023 End: 06-12-2023 Patient encounter procedure 06/12/2023 10:05 AM EDT Office Visit [facility] [address] [place] [phone] Rohit Smith MD [address] [place] [address] [facility] Start: 05-19-2023 End: 05-19-2023 Patient encounter procedure 05/19/2023 10:15 AM EST Appointment [facility] [address] [place] [phone] [facility] Start: 05-16-2023 End: 05-16-2023 Patient encounter procedure 05/16/2023 1:45 PM EST Office Visit [facility] [address] [place] [address] Rohit Smith MD [address] [place] [address] [facility] Start: 05-08-2023 End: 05-08-2023 Patient encounter procedure 05/08/2023 1:30 PM EST Office Visit [facility] [address] [place] [address] Reny No, ASSOCIATE PROFESSOR OF [employer] [address] [place] [address] [facility] Start: 04-14-2023 End: 04-14-2024 XR Lumbar spine Views W flexion and W extension X-ray spine lumbar ap, lateral, flexion and extension only Imaging Routine Back pain, unspecified back location, unspecified back pain laterality, unspecified chronicity Expected: 04/14/2023, Expires: 04/14/2024 MARYA [facility] Work Phone: Comment on above: Expected: 04/14/2023 , Expires: 04/14/2024 Start: 12-02-2022 Influenza vaccination Influenza Vacc ine [facility] Start: 12-01-2022 Depression Screening Depression Scre ening [facility] Start: 11-01-2022 Influenza vaccination Flu vaccine (# 1) [facility] Start: 09-03-2022 Adult BMI Follow Up Plan Adult BMI Follow Up Plan [facility] Start: 12-02-2021 Influenza vaccination Flu vacc ine (Season Ended) [facility] Start: 11-01-2021 Influenza vaccination Flu vaccine (# 1) [facility] Start: 2017 Diabetes screen Diabetes screen [facility] Start: 2012 Screening for malignant neoplasm of cervix [facility] Start: 12-01-2003 Screening for malignant neoplasm of cervix Pap smear [facility] Start: 2001 DTaP,Tdap and Td Vaccines (1 - Tdap) DTaP,Tdap and Td Vaccines (1 - Tdap) [facility] Start: 2001 DTaP/Tdap/Td vaccine (1 - Tdap) DTaP/Tdap/Td vaccine (1 - Tdap) [facility] Start: 2000 Hepatitis C screening Hepatitis C sc reen [facility] Start: 1994 Depression Screen Depression Screen [facility] Start: 12-01-1987 COVID-19 Vaccine (1) COVID-19 Vaccin e (1) [facility] Start: 12-01-1983 Varicella vaccine (1 of 2 - 2-dose childhood series) Varicella vaccine (1 of 2 - 2-dose childhood series) [facility] Start: 06-01-1983 COVID-19 Vaccine (#1) COVID-19 Vacci ne (#1) GIANA PEREZ [facility] Payers Date Payer Category Payer Self-pay 2022 Unknown [id number] 2022 Unknown [id number] 2020 Unknown [id number] 1.2.8 [id number] 1982 Unknown [id number] 2.16.84 0.1.111544.3.579.2.593 1982 Unknown [id number] 2.16.84 0.1.440281.3.579.2.593 1982 Unknown [id number] 2.16. 840.1.998081.3.579.2.175 1982 Unknown [id number] 2.16. 840.1.046771.3.579.2.175 1982 Unknown [id number] 2.16. 840.1.912482.3.579.2.175 1982 Unknown [id number] 2.16.8 40.1.000673.3.579.2.1286 1982 Unknown [id number] 2.16.8 40.1.803108.3.579.2.1286 1982 Unknown [id number] 2.16.84 0.1.172906.3.579.2.1286 1982 Unknown [id number] 2.16.8 40.1.688564.3.579.2.718 1982 Unknown [id number] 2.16.8 40.1.955400.3.579.2.718 1982 Unknown [id number] 2.16.8 40.1.455541.3.579.2.1286 1982 Unknown [id number] 2.16.8 40.1.321160.3.579.2.1286 1982 Unknown [id number] 2.16.8 40.1.674785.3.579.2.1286 1982 Unknown [id number] 2.16.8 40.1.542745.3.579.2.6 1982 Unknown [id number] 2.16 840.1.776060.3.579.2.196 1982 Unknown [id number] 2.16. 840.1.608558.3.579.2. 1982 Unknown [id number] 2.16. 840.1.958652.3.579.2. 1982 Unknown [id number] 2.16. 840.1.511420.3.579.2. 1982 Unknown [id number] 2.16. 840.1.753532.3.579.2.196 1982 Unknown [id number] 2.16.84 0.1.302835.3.579.2.1259 1982 Unknown [id number] 2.16.84 0.1.279588.3.579.2.9 1982 Unknown [id number] 2.16.84 0.1.358077.3.579.2.1259 1982 Unknown [id number] 2.16.84 0.1.421835.3.579.2.9 1982 Unknown [id number] 2.16.84 0.1.039742.3.579.2.1259 1982 Unknown [id number] 2.16.84 0.1.041227.3.579.2.1259 1982 Unknown [id number] 2.16.84 0.1.455950.3.579.2.1259 1982 Unknown [id number] 2.16.840 .1.590415.3.579.2.1259 1959 Unknown [id number] Social History Date Type Detail Facility Start: 06-15-2015 End: 03-31-2022 Tobacco smoking status [facility] Never smoked tobacco [employer] Start: 06-15-2015 End: 03-31-2022 Tobacco use and exposure Smokeless tobacco non-user [employer] Phone: Start: 08-19-2021 End: 06-12-2023 Alcohol intake Current non-drinker of alcohol (finding) [employer] Phone: Start: 05-14-2020 End: 08-19-2021 Alcohol intake [facility] Start: 06-15-2015 History SDOH Alcohol Comment rarely [employer] Phone: Start: 1982 Sex Assigned At Not on file [employer] Phone: Start: 08-09-2021 End: 01-03-2022 Exposure to SARS-CoV-2 (event) Not sure [employer] Phone: History of tobacco use Passive smoker [employer] Phone: Start: 05-14-2020 End: 04-14-2023 Sex Assigned At [facility] Adolescent depressio n screening assessment [facility] Start: 05-04-2023 Alcohol intake Ex-drinker (finding) [facility] Start: 10-09-2022 Alcohol Comment Alcohol: 1 or 2 drinks on typical day/monthly or less. Caffeine: 1-2 cups/day tea [facility] Start: 1982 Sex Assigned At Female [facility] Start: 09-21-2022 Gender identity Identifies as female gender (finding) [facility] Start: 09-21-2022 Sexual orientation Heterosexual (finding) [facility] Clinical Notes 08-19-2021 to 08-23-2023 Rohit [...] wine (148 mL (more content not included)... [facility] 06-12-2023 History of Present illness Narrative [...] take another few months to subside. Recommended pwvl-ldh-pktgbxh pain relievers as needed. She is content [...] any severe symptoms. documented in this encounter [facility] 05-16-2023 History of Present illness Narrative [facility] Chief Complaint: [...] a snap. She initially followed up with [facility] Orthopedics and was diagnosed with right [...] External notes reviewed: I reviewed notes from [facility] orthopaedics. Review of test/study reports: I reviewed an x-ray obtained of the right ring finger. There were no acute osseous abnormality such as fracture dislocation. My personal interpretation of tests: I personally viewed and interpreted X-rays from [facility] as above. Xrays done in office today: None. Assessment: 1. Mallet [facility]ity [facility] right [facility] [place], [place] 2. Finger injury, right, initial encounter - [facility] - [place], [place] Plan: I discussed treatment options with [...] with her flexion. documented in this encounter [facility] 05-10-2023 Evaluation note Encounter Date Diagnosis Assessment Notes May, Adult ADHD (attention deficit hyperactivity disorder) (ICD-10 - F90.9) [employer] Other 02-01-2024 History of Present illness Narrative* [...] finger for about 2 weeks. [facility] [place] [facility] due to having numbness in finger and unable to straighten it. Had XR at . On 03/13, pt went to [facility] and had another XR. Unable to get into hand specialist at [facility] until May 16. Continues to [...] crooked. PT is RT handed Prior [place]: [facility], XR, [place], [facility], XR 03/13/23, Ice, Heat, IBU, [facility] ALLERGIES: No Known Allergies HOME MEDICATIONS: Current Outpatient Medications Medication Instructions amphetamine-dextroamphetamine (Adderall) 20 MG tablet 1 TABLET ORALLY MID DAY 30 DAYS cyclobenzaprine (Flexeril) 10 MG tablet PLEASE SEE ATTACHED FOR DETAILED DIRECTIONS fluconazole (DIFLUCAN) 100 mg, Oral, Daily nystatin (Mycostatin) 710106 UNIT/GM powder APPLY TO AFFECTED AREA TOPICALLY [...] normal Pronation: normal Supination: normal Muscle Strength County Judge: 3/5 Other Erythema: absent Pulse: present Comments: [...] develop for requiring urgent evaluation. Oswaldo Dee ASSOCIATE PROFESSOR OF [employer] documented in this encounterEll[facility] [id number] Evaluation note* Encounter Date Diagnosis Assessment Notes Treatment Notes Treatment Clinical Notes Apr, Adult ADHD (attentio n deficit hyperactivity disorder) (ICD-10 - F90.9) [employer] Other 01-10-2024 Evaluation note* Encounter Date Diagnosis Assessment Notes Treatment Notes Treatment Clinical Notes Apr, Adult ADHD (attentio n deficit hyperactivity disorder) (ICD-10 - F90.9) [employer] Other 01-09-2024 Evaluation note* Encounter Date Diagnosis Assessment Notes Treatment Notes Treatment Clinical Notes Apr, Adult ADHD (attentio n deficit hyperactivity disorder) (ICD-10 - F90.9) [employer] Other 01-08-2024 Evaluation note* Encounter Date Diagnosis Assessment Notes Treatment Notes Treatment Clinical Notes Apr, Adult ADHD (attentio n deficit hyperactivity disorder) (ICD-10 - F90.9) [employer] Other 12-07-2023 NotePatient Education Materials Follows: Mallet [...] or lying down. General instructions ? Take bzsz-mdw-bvdykra and prescription medicines only as told by [...] by your health care p (more contentnot included)...[id number] Evaluation note * Encounter Date Diagnosis Assessment Notes Treatment Notes Treatment Clinical Notes Jan, Adult ADHD (attentio n deficit hyperactivity disorder) (ICD-10 - F90.9) [employer] Other 10-02-2023 Evaluation note* Encounter Date Diagnosis [...] in 3 months or sooner if needed. [employer] Other 09-08-2023 Evaluation note* Encounter Date Diagnosis Assessment Notes Treatment Notes Treatment Clinical Notes Dec, Adult ADHD (attentio n deficit hyperactivity disorder) (ICD-10 - F90.9) [employer] Other 09-07-2023 Evaluation note* Encounter Date Diagnosis Assessment Notes Treatment Notes Treatment Clinical Notes Dec, Adult ADHD (attentio n deficit hyperactivity disorder) (ICD-10 - F90.9) [employer] Other 08-30-2023 Evaluation note* Encounter Date Diagnosis [...] Cutaneous candidiasis (ICD-10 - B37.2) Refilled diflucan. [employer] Other 07-11-2023 Hospital Discharge instructions* Discharge Instructions* RIZWAN Dietz CNP - 10/11/2022 8:08 PM EDT Please call and schedule a follow-up appointment with [facility]. Use an ice pack or bag [...] through Care Everywhere. * RICE: General Info (Gambian) * Ankle Sprain (Gambian) [facility] Discharge instructions* Instructions* Radha Sanders MD - 08/19/2021 May use ice or heat, whichever feels better. May use [place] for pain. Prednisone as directed. Follow-up with [...] a follow up appointment THANK YOU!!! From [facility] and [facility] On behalf of the Emergency Department staff at [facility], I would like to thank you for giving us the opportunity to address your health care needs and concerns. We hope that during your visit, our service was delivered in a professional and caring manner. Please keep [facility] in mind as we walk with [...] how we did during your visit at [email or web address] and let us know about your experience * Attachments The following attachments cannot be sent through Care Everywhere. * Herniated Disc (Gambian) documented in [facility] encounter[facility] [employer] Phone: evaluation note* Diagnosis Herniated lumbar intervertebral disc- Primary Displacement of lumbar intervertebral disc without myelopathy documented in this encounter [employer] Phone: evaluation note* Diagnosis Gastroenteritis- Primary Other and unspecified noninfectious gastroenteritis and colitis documented in this encounter [facility] [employer] Phone: evaluation note* Diagnosis Sprain of right ankle, unspecified ligament, initial encounter- Primary documented in this encounter [facility] Vessel[employer]anguardEvaluation note* Diagnosis Back pain, unspecified back location, unspecified back pain laterality, unspecified chronicity- Primary documented in this encounter [facility] [employer] SystemEvaluation noteNo InformationNogeneral [facility] [employer] Other Evaluation note* Diagnosis 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 Pain in finger of right hand Pain in soft tissues of limb documented in this encounter [facility] HealthcareEvaluation note* Diagnosis Herniated lumbar intervertebral disc- Primary Displacement of lumbar intervertebral disc without myelopathy [facility]* Diagnosis 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 Finger injury, right, initial encounter documented in this encounter [facility] SystemEvaluation note* Diagnosis Herniated lumbar intervertebral disc- Primary Displacement of lumbar intervertebral disc without myelopathy Lumbar radiculopathy, chronic documented in this encounter [facility] SystemEvaluation noteNo assessment information [facility] Work Phone: Evaluation note* Diagnosis Lumbar radiculopathy, chronic- Primary Herniated lumbar intervertebral disc Displacement of lumbar intervertebral disc without myelopathy documented [facility]* Diagnosis 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 documented in this encounter [facility] SystemHistory general Narrative - Reported* Type Description Date Medical History PCOS/insulin resistant Medical History PCOS (polycystic ovarian syndrom e) Medical History Frequent headaches Medical History Gestational diabetes Medical History Prediabetes Surgical History cholecystectomy 2005 Surgical History appendectomy 2007 Surgical History Hospitalization History see surgical hx [place] [employer] Other Hospital Discharge instructions* Attachments The following attachments cannot be sent through Care Everywhere. * Gastroenteritis (Gambian) [facility] [employer] Phone: InstructionsNot on filedocumented in this encounter [facility] SystemInstructionsNot on filedocumented in this encounter [facility] SystemInstructionsNot on filedocumented in this encounter [facility] [employer] SystemInstructionsNot on filedocumented in this encounter [facility] SystemReason for referral (narrative)* Consultation (Routine) - Pending Review Specialty Diagnoses / Procedures Referred By Contact Referred To Contact Physical Medicine and Rehabilitation Diagnoses Herniated lumbar intervertebral disc Lumbar radiculopathy, chronic Reny No APRN-CNP [address] [place] [address] Vishal Martin DO [address] [place] [address] Referral ID Status Reason Start Date Expiration Date Visits Requested Visits Authorized [id number] Pending Review Specialty Services Required 05/24/2023 05/23/[address] [facility] [employer] SystemReason for referral (narrative)* Consultation (Routine) - Pending Review Specialty Diagnoses / Procedures Referred By Contac t Referred To Contact Pain Medicine Diagnoses Lumbar radiculopathy, chronic Herniated lumbar intervertebral disc Reny No APRN-CNP [address] [place] [address] Davis Silva MD [address] [place] [address] Referral ID Status Reason Start Date Expiration Date V isits Requested Visits Authorized [id number] Pending Review 06/12/2023 06/11/2024 1 1 [facility] [employer] [facility] Advance Directives Documents on File Type Date Recorded 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 Thinks its from bad vegetables Emesis Diarrhea Reason Comments Ankle Pain Rolled right ankle o n a tree branch Reason Comments Follow-up Reason Comments Pain New patient chukc merritt damon on the right hand ring [...] site of digit, initial encounter Nicole Lockwood, ASSOCIATE PROFESSOR OF [employer] [address] [place] [address] Rohit Smith MD [address] [facility] [address] [place] [address] Referral ID Status Reason Start Date Expiration Date Visits Requested Visits Authorized [id number] Pending Review Specialty Services Required 3 03/12/2024 [...] would not scan at bedside. Verified with [facility] prior to administration.) Scheduled Medication Order [...] mL/hr, Administer over 0.5 Hours, ONCE, On 01/03/22 at 1245, For 1 dose 1241 (Bolus [...] Care Teams (unrecognized sec tion and content) Environmental Protection Forester Relationship Specialty Start Date End Date Johnathon Winter MD PCP - General Family Medicine 03/08/16 Environmental Protection Forester Relationship Specialty Start Date End Date Johnathon Winter MD PCP - General Family Medicine 03/08/16 Environmental Protection Forester Relationship Specialty Start Date End Date Johnathon Winter MD PCP - [facility] 03/08/16 Environmental Protection Forester Relationship Specialty Start Date End Date Johnathon Winter MD [address] [place], [place] [phone] PCP - General 03/13/23 Environmental Protection Forester Relationship Specialty Start Date End Date Johnathon Winter MD [address] [place] [phone] PCP - General Family Medicine 12/12/22 Environmental Protection Forester Relationship Specialty [place] [address] [place] [address] PCP - General 03/13/23 Environmental Protection Forester Relationship Specialty Start Date End Date Johnathon Winter MD [address] [place] [id number] PCP - General 03/13/23 Environmental Protection Forester Relationship Specialty Start Date End Date Johnathon Winter MD [address] [place] [address] PCP - General 03/13/23 Team Status: Active Member Role Status Dates Johnathon Winter MD Primary Care Provide r, Attending Provider Active Start: May 10, 2023 Team Status: Inactive Member Role Status Dates Tee Peterson MD Attending Provider Active Start: May 23, 2023 End: May 23, 2023 Environmental Protection Forester Relationship Specialty Start Date End Date Johnathon Winter MD [address] [place] [address] PCP - General 03/13/23 Team Status: Active Member Role Status Dates Sanjeev Lopez DO Attending Provider Active Start : October 25, 2023 Team Status: Active Member Role Status Dates Sanjeev Lopez DO Attending Provider Active Start : November 29, 2023 Team Status: Inactive Member Role Status Dates Sanjeev Lopez DO Attending Provider Active Start : December 06, 2023 End: December 06, 2023 INFORMATION SOURCE (unrecogn ized section and content) DATE CREATED AUTHOR 07/17/2022 [facility] DATE CREATED AUTHOR AUTHOR'S ORGANIZ ATION 10/12/2022 [facility] DATE CREATED AUTHOR AUTHOR'S ORGANIZ ATION 06/01/2023 [facility] DATE CREATED AUTHOR AUTHOR'S ORGANIZ ATION 06/12/2023 [facility] DATE CREATED AUTHOR AUTHOR'S ORGANIZ ATION 09/02/2023 [facility] DATE CREATED AUTHOR AUTHOR'S ORGANIZ ATION 11/23/2023 [facility] DATE CREATED AUTHOR AUTHOR'S ORGANIZ ATION 12/01/2023 [facility] DATE CREATED AUTHOR AUTHOR'S ORGANIZ ATION 12/07/2023 [facility] dical Specialists EPIC Goals (unrecognized section and content) Goals may [...] BE BASED ON THE PRIMARY CLINICAL RECORDS. [facility]. provides no warranty or guarantee of the accuracy or completeness of information in this document.
[2023-12-08 09:40] LABS: Estimated Average Glucose 97 mg/dL
[2023-12-08 10:15] LABS: Free T4 1.22 ng/dL (0.76-1.46)
[2023-12-08 10:43] LABS: Free T3 2.24 pg/mL (2.18-3.98); Glucose 82 mg/dL (74-106); Thyroid Stimulating Hormone 1.929 uIU/mL (0.358-3.740)
[2023-12-09 08:12] LABS: Progesterone 0.2 ng/mL (.)
[2023-12-09 13:08] LABS: C-Peptide, Serum 3.8 ng/mL (1.1-4.4); Insulin 12.5 uIU/mL (2.6-24.9)
[2023-12-10 13:07] LABS: Calcitriol(1,25 di-OH Vit D) 35.8 pg/mL (24.8-81.5)
[2023-12-11 04:06] LABS: Free Testosterone(Direct) <0.2 pg/mL (0.0-4.2); Testosterone <3 ng/dL (4-50)
[2023-12-11 14:09] LABS: Reverse T3, Serum 39.2 ng/dL (9.2-24.1)
[2023-12-12 09:12] LABS: Thyroglobulin Antibody <1.0 IU/mL (0.0-0.9); Thyroid Peroxidase (TPO) Ab <9 IU/mL (0-34)
[2023-12-13 19:08] LABS: Estrone, Serum 176 pg/mL (.)
== END 2023-12-08 07:22 | disposition home or self-care (01) ==
LOC: LAB 07:24
PROVIDERS: PCP Family Medicine; Visit Provider Obstetrics & Gynecology
DX: E34.9 Endocrine disorder, unspecified (principal)
CPT/HCPCS: 36415; 82533; 82652; 82670; 82679; 82728; 82947; 83036; 83525; 84144; 84260; 84402; 84403; 84432; 84436; 84439; 84443; 84481; 84482; 84681; 86376; 86800

== ENCOUNTER 2023-12-12 10:41 | Outpatient (OUT) | payer BC, SELFPAY | END 2023-12-12 10:42 | disposition home or self-care (01) | LOC: PST 10:41 | PROVIDERS: PCP Family Medicine; Visit Provider Obstetrics & Gynecology | DX: Z01.818 Encounter for other preprocedural examination (principal); N92.0 Excessive and frequent menstruation with regular cycle; N93.9 Abnormal uterine and vaginal bleeding, unspecified; R10.2 Pelvic and perineal pain ==

== ENCOUNTER 2023-12-22 06:47 | Day surgery (SDC) | payer BC, SELFPAY ==
[2023-12-12 11:29] VITALS: BP 155/96; PULSE 93; TEMP 36.4; O2SAT 100; BMI 33.3
[2023-12-22] VITALS (10 sets, daily range): BP systolic 137–157; BP diastolic 102–110; PULSE 80–118; TEMP 36.1–36.3; O2SAT 97–100; BMI 32.9
--- OUTSIDE RECORDS SUMMARY | 2023-12-22 06:50 | XMS_ITS | CCD ---
Author Organization [facility] Care Team Providers Care Soda Column Operator Name Role Phone Johnathon Winter MD Primary Care Provider [phone] JESSICA ., DR ROMERO Admitting Unavailable JESSICA ., DR ROMERO Attending Unavailable REQUEST, DR NONE LISTED Primary Care Unavaila ble JESSICA ., DR ROMERO Consulting Unavailable [employer] Unavailable JESSICA ., DR ROMERO Admitting Unavailable JESSICA ., DR ROMERO Attending Unavailable REQUEST, DR NONE LISTED Primary Care Unavaila ble JESSICA ., DR ROMERO Consulting Unavailable Johnathon Winter MD Primary Care Provider [phone] JOHNATHON WINTER Primary Care Unavailable ROXIE GARCIA Attending Unavailable JOHNATHON WINTER Primary Care Unavailable SANCHEZ AGUSTIN Attending Unavailable JOHNATHON WINTER Primary Care Unavailable TEO THOMAS Attending Unavailable Johnathon Winter Unavailable Johnathon Winter MD Primary Care Provider Scottie Lyn Unavailable Johnathon Winter MD Primary Care Provider MD Tee Peterson Attending Provider ROHIT LARKIN [...] Care Unavailable NO, RENY Referring Unavailable WINTER, JHONATHON E Primary Care Unavailable Felicia SÁNCHEZ, Bhavin Primary Care Unavailable Miguel SÁNCHEZ, Christiano Mcgovern Attending Unavailable Felicia SÁNCHEZ, Bhavin Primary Care Unavailable Miguel SÁNCHEZ, Christiano Mcgovern Attending Unavailable Felicia SÁNCHEZ, [facility] Care Unavailable Miguel SÁNCHEZ, Christiano Mcgovern Attending Unavailable Miguel SÁNCHEZ, Christiano Mcgovern Attending Unavailable Felicia SÁNCHEZ, [facility] Unavailable Miguel SÁNCHEZ, Christiano Mcgovern Attending Unavailable Felicia SÁNCHEZ, [facility] Unavailable SANJEEV LOPEZ Attending Unavailable OSWALDO DEE Attending Unavailable SANJEEV LOPEZ Attending Unavailable SANJEEV LOPEZ Attending Unavailable ROBERT URRUTIA Attending Unavailable LA LOPEZY Referring Unavailable SANJEEV LOPEZ Attending Unavailable OSWALDO DEE Attending Unavailable SANJEEV LOPEZ Attending Unavailable DO Sanjeev Lopez Attending Provider [phone] Tee Peterson Admitting Unavailable Tee Peterson Attending Unavailable Sanjeev Lopez Attending Unavailable Sanjeev Lopez Admitting Unavailable Allergies Allergy Classification Reported Allergen(s) [...] once a week. 0 02/27/2023 Active nystatin 332194 unt/ml topical cream (9 sources) Polyene Antifungal Start: 05-01-2023 End: 04-30-2024 nystatin (Mycostatin) cream Indications: Follow-up encounter involving medication , Superficial skin infection Apply topically 2 (two) times a day 30 g 3 05/01/2023 04/30/2024 Active Start: 04-14-2023 nystatin (MYCO STATIN) powder Apply 1 Application topically in the morning and 1 Application before bedtime. 0 04/14/2023 Active Start: 04-14-2023 nystatin (Myco statin) 603041 UNIT/GM powder Indications: Skin irritation APPLY TO [...] days 20 tablet 0 08/19/2021 08/29/2021 Active Pia-Obr-UA-Fish Oil ([facility] GUMMY) 0.4-113.5 MG CHEW (2 sources) Ptt-Wxw-BM-Fish Oil ([facility] GUMMY) 0.4-113.5 MG CHEW Take [...] 8:36am Start: 12-08-2022 take 1 capsule by [facility] twenty-four hours Vyvanse 50 MG [...] HUMAN PAPILLOMAVIRUS] Onset: 07-17-2022 Episodic Menstrual disorders (9 sources) Menorrhagia; Translations: [Excessive and frequent menstruation [...] Test Name Value Interpretation Reference Range Facility [facility] 12-06-2023 L Specimen: [id number] Received: 12/07/23 Status: NATHAN Guzmán Num: [id number] Spec Type: Surgical Subm Dr: Sanjeev Lopez Tissues: A Endometrium - Biopsy (EMBX) Procedures: HE/2, Gross/Micro L4 Age/ Patient Sex Location Account Attending Physician Karuna Dumont 43/F [place] [id number] Sanjeev Lopez SPEC NUM: [id number] RECD: 12/07/23 STATUS: KASIEKiet LEISA NUM: [id number] GENEVA: 12/06/23- SUBM DR: Sanjeev Lopez ENTERED: 12/07/23 [facility] DR: Bert,Lab SPEC TYPE: Surgical DEPT: ROLDAN THOMPSON ENTERED BY: [id number] RECV BY: [id number] ORDERED: HE/2, Gross/Micro L4 ORDERED: HE/2, Gross/Micro L4 Pathological Diagnosis Endometrial biopsy: -Multiple mucosal strips of the inactive to focally weakly secretory type endometrial glands without hyperplasia or atypia identified, but with diffuse mild to moderate nonspecific vascular congestions also observed Clinical Information Menorrhagia with regular cycle, AUB Gross Description The specimen was received in formalin with the patient's name and endometrial biopsy and consists of multiple dhaliwal-pink soft tissue fragments measuring 2.2 x 1.0 x 0.1 cm in aggregate. The specimen is filtered entirely submitted in cassette A1. Microscopic Description Microscopic examinations are performed supporting the above interpretation Specimen: [id number] Received: 12/07/23 Status: NATHAN Guzmán Num: [id number] Spec Type: Surgical Subm Dr: Sanjeev Lopez Tissues: A Endometrium - Biopsy (EMBX) Procedures: MELANIE/Melissa, Cheyanne/Kwame L4 Patient: Karuna Dumont [id number] (Continued) Specimen: [id number] Received: 12/07/23 (Continued) Signed (signature on file) Frida Kirby MD 12/12/232157 Specimen: [id number] Received: 12/07/23 Status: NATHAN Guzmán Num: [id number] Spec Type: Surgical Subm Dr: Sanjeev Lopez Tissues: A Endometrium - Biopsy (EMBX) Procedures: / Gross/Micro L4 Patient: Karuna Dumont [id number] (Continued) Specimen: [id number] Received: 12/07/23 (Continued) CPT Codes 54612 Specimen: [id number] Received: 12/07/23 Status: NATHAN Guzmán Num: [id number] Spec Type: Surgical Subm Dr: Sanjeev Lopez Tissues: A Endometrium - Biopsy (EMBX) Procedures: Gross/Micro L4 Patient: Karuna Dumont [id number] (Continued) Signed (signature on file) Chin-Blake Kirby MD 12/12/232157 Normal [facility] Free testosterone measuremen t by LC-MS/MSon 11-29-2023 Testosterone Free [Mass/Vol] <0.2 pg/mL 0.0-4.2 [facility] Comment on above: Performed at: [employer] [place], [place] [id number] Director: Theron Roblero PhD, Phone: [phone] at: [facility] [address] [id number] Director: Katelynn Macdonald MD, Phone: [phone] No Panel Informationon 11-28 Dehydroepiandrosterone Sulfate 40.8 ug/dL Abnormal 57.3-279.2 [facility] Sex Hormone Binding Globulin 60.9 nmol/L 24.6-122.0 [facility] Comment on above: Performed at: [employer] [place], [place] [id number] Director: Theron Roblero PhD, Phone: [phone] Testosterone Level <3 ng/dL Abnormal 8-60 [facility] Activated partial thrombopla stin time (aPTT) in platelet poor plasma by coagulation aon 10-25-2023 aPTT Coag (PPP) [Time] 29.5 s 22.3-36.2 [facility] Basophils Auto (Bld) [#/Vol] on 10-25-2023 Basophils (Bld) [#/Vol] 0.1 10 3/uL 0.0-0.1 [facility] Basophils/100 WBC Auto (Bld) on 10-25-2023 Basophils/100 WBC (Bld) 1.1 % 0.2-2.0 [facility] Eosinophils/100 WBC Auto (Bl d)on 10-25-2023 Eosinophils/100 WBC (Bld) 2.2 % 0.9-7.0 [facility] Erythrocyte distribution wid th Auto (RBC) [Ratio]on 10-25-2023 Erythrocyte distribution width (RBC) [Ratio] 14.5 % 11.0-15.0 [facility] Glucose mean value [Mass/vol ume] in Blood Estimated from glycated hemoglobinon 10-25-2023 Average glucose Estimated from glycated hemoglobin (Bld) [Mass/Vol] 88 mg/dL [facility] Hematocrit Auto (Bld) [Volum e fraction]on 10-25-2023 Hematocrit (Bld) [Volume fraction] 39.8 % 36.0-48.0 [facility] Hemoglobin [Mass/volume] in Bloodon 10-25-2023 Hemoglobin (Bld) [Mass/Vol] 12.6 g/dL 12.0-16.0 [facility] INR in Platelet poor plasma by Coagulation assayon 10-25-2023 INR Coag (PPP) [Relative time] 0.99 {INR} [facility] Comment on above: DESIRED INR:2.0-3.0 CONDITIONS NOT LISTED BELOW2.5-3.5 FOR PROSTHETIC HEART VALVE REPLACEMENT2.5-3.5 RECURRENT THROMBOSIS Laboratory - Chemistry and C hemistry - challengeon 10-25-2023 Free T4 [Mass/Vol] 1.24 ng/dL 0.76-1.46 [facility] TSH Qn 1.497 m[IU]/L 0.358-3.74 0 [facility] Laboratory - Hematology and Cell countson 10-25-2023 HbA1c (Bld) [Mass fraction] 4.7 % 4.5-6.2 [facility] Comment on above: ADA RECOMMENDED LIMI T 4.0 - 6.0ADA THERAPEUTIC TARGET < 7.0ACTION SUGGESTED> 7.0 Immature granulocytes/100 WBC (Bld) 0.2 % 0.0-0.5 [facility] Leukocytes [#/volume] correc mini for nucleated erythrocytes in Blood by Automated counon 10-25-2023 WBC corrected for nucl RBC Auto (Bld) [#/Vol] 5.5 10 3/uL 4.0-11.0 [facility] Lymphocytes Auto (Bld) [#/Vo l]on 10-25-2023 Lymphocytes (Bld) [#/Vol] 1.8 10 3/uL 1.2-3.8 [facility] Lymphocytes/100 WBC Auto (Bl d)on 10-25-2023 Lymphocytes/100 WBC (Bld) 33.3 % 20.5-60.0 [facility] MCH Auto (RBC) [Entitic mass ]on 10-25-2023 MCH (RBC) [Entitic mass] 27.9 pg 26.7-34.0 [facility] MCHC Auto (RBC) [Mass/Vol]on 10-25-2023 MCHC (RBC) [Mass/Vol] 31.7 g/dL 29.9-35.2 [facility] MCV Auto (RBC) [Entitic vol] on 10-25-2023 MCV (RBC) [Entitic vol] 88.1 fL 81.0-99.0 [facility] Monocytes Auto (Bld) [#/Vol] on 10-25-2023 Monocytes (Bld) [#/Vol] 0.3 10 3/uL 0.3-0.8 [facility] Monocytes/100 WBC Auto (Bld) on 10-25-2023 Monocytes/100 WBC (Bld) 5.4 % 1.7-12.0 [facility] Neutrophils Auto (Bld) [#/Vo l]on 10-25-2023 Neutrophils (Bld) [#/Vol] 3.2 10 3/uL 1.4-6.5 [facility] Neutrophils/100 WBC Auto (Bl d)on 10-25-2023 Neutrophils/100 WBC (Bld) 57.8 % 43.0-75.0 [facility] No Panel Informationon 10-24 Eosinophils # (Auto) 0.1 10 3/uL 0.0-0.7 [facility] Human Chorionic Gonadotropin, Quant <1 mIU/mL [facility] Comment on above: 5-50 0.2-1 PERP42-55 0 1-2 JELYI731-6,000 2-3 HPJQV472-84,000 3-4 WEEKS1,000-50,000 4-5 WEEKS10,000-100,000 5-6 WEEKS15,000-200,000 6-8 WEEKS10,000-100,000 2-3 MONTHS Immature Granulocyte # (Auto) 0.01 10 3/uL 0.00-0.03 [facility] Platelet mean volume Auto (B ld) [Entitic vol]on 10-25-2023 Platelet mean volume (Bld) [Entitic vol] 9.7 fL 9.5-13.5 [facility] Platelets Auto (Bld) [#/Vol] on 10-25-2023 Platelets (Bld) [#/Vol] 300 10 3/uL 150-450 [facility] Prothrombin time (PT)on 10-02 PT Coag (PPP) [Time] 10.5 s 9.0-11.6 [facility] RBC Auto (Bld) [#/Vol]on RBC (Bld) [#/Vol] 4.52 10 6/uL 4.20-5.40 [facility] Coding Summaryon 09-01-2023 Coding Summary HTMLBase 64 JxdwxhwpLIx1rMb+PGhlYWQ+ GW1EHMZlF34qtIGmrH8oC2HZ TElOSywgQVBQTElOSyIgbmFt UR7pzHWuVDBu IC8+IC6aYMXbOdqvfQPth0R2 pDP9P57gpy8mHFolpRI8UGSl LyEztzeel8ehhOg4LFwsDyet OyBt PHYbtU73YSQ7eE84Dd30kPUg xNDwe7stjPw1GbAwHBCoCGK0 rGmdFWlqg5EpEFDpM74oqTGt c2U6 QVKntVgnyAEtXuXzgJJ8lB0j RHsafpsqm5ticwnlZvg7ps91 uYIck5E9dYF6S1RkasF5WIFs bGQg GjoqpFRUeK0kexeuu2tjjgeg PjIqJDRuIRq3AWz2QFXhuZsz NzVlLN51WYH1SMJzakDhF4Ir LWFs hXybUhD6b3Z9Er0LO5HZSznb Y2BZBPXBJXamnWL+LR16hi55 X7EbTzvcMln2JSZxSYG5jRD4 aD0n ACOuHMroc4G6fPW3K3IjlhCe gx8pt7miIFUfGUflE49vuYQd o4B1DQCrwDA4GKNekLduRmBq aG93 Oyc+DDXajEbhc3IwLyowp8kg b3wcuGq5UqdfCQVhvaRekXym IPW5f2TsUo9qWZVldMC2tDQ6 aD0i OoAiUeK2BRueY530AgPliSEb LezhJ84uP7UqtUM+PHRyPjx0 XELafNbtYY0dD8YvCSTjsjuk bGVm ySrwRC1nSHAkrzsvPPNdxA8r TURtK3e5EpNrMbC2JUegN5To NLQsnttlDu95zB0eVqBjGzG5 MGlu J8PmkiQ5LRMtaYKeXGfeKTY0 F65tc2T1BQJvYXVgCHV3zSF5 nT6ljVjlvmxorAKguZgabsEx dGlj GBmgQRxsA464KOSzkSsnLeJg ZGluZyBEYXRlOiAgMDUvMzEv MjAyNDwvdGQ+UPGcWFJ7mYaw PSAn vXMbOIflJe5tjNdnyNvxGY1r LEWhknhdDPRqhT9vMISyyITo pNnjQM8wXQJrzztdp193DqLu MHB0 TCZtxWQdE5ZhsR4tSdMnBISh ZCXxP2QycSDgOYbpY386TQlv WbU8LYInizGnA3DlZWAgeNkj OiB0 c7C4Un5Bn6YapdxlV1TswMWk AwFfTxvlTXo9L1HfVvpncCJ+ AZ34OPLiWW58OVh5SWS0aXvp PSdi OOJhL1BzhQ3qIdBiHKGlBCBw Oyc+PHRhYmxlIHdpZHRoPScx WIRsZfGjvUywQZ3jRx5uUXOo LWNv yKhxgIAwLyYca7tbGIBhJErk RF3ooWqmY7SuqQD0GKPyp6y7 Wh64Y94mT0KbxBQ+PGNvbCB3 aWR0 oG4fVvUkElG6FZgoO173MnAe dYVjXveca3jwi5rbxXr8BkX7 YADbffVpzLetJDR0p5KpXr12 Y29s IHdpZHRoPSIxNSUiIHZhbGln rk4mzA4iLb8+YOFceAV9lPU5 nW5oBqIrPlG1VXgxW032NrSj cCIv Qiiam7hlv5otxKv9FbQdFOXv vzWkzUdjSYX1u7MtWj37Z7Ph qQbpb4StYyd3dp11iPHrs1I4 bGU9 P5WbXJOgbeqgxVWtjYozTZ2z EUCriylnKEAkzO3yHCLnS1v6 QlPcPtM1QLuvN1FkngB9TWPz bGQg BHWkiPNLwG5sdoard6ghcixu GrOgUTQrWEw4SHb3XDAtrPna BbEtOTG6BjE7GTW1tSYmgS5r bGln gwuwtF6pUbp+BHI5aTIvxPBO NN3eOkiedQB+NPAuFFB9wCzn EDnqBZRbtN4wAPAfP1q5HtIf LjA1 UNnsP5RxfvY0DLGjmOLrLWZq yUYTzB2fcflwa6hilbsfDtUv GRDmVLs3VGa2XZCgyDbiZyDh ZWZ0 OeQ6FFP2hCJcqT5omVtzwutb yT0rUlu+AybagCejBNW6ABr1 H6UiKxq1WRRfcUcwOD8lzWGq ZGlu Fy8bzPqnaQjuXS1sFKRejmjw r419ThEfe7raMTXdgXXdKXep DGO3A85fn6O8ATLjUPDeTZK3 dGV4 sA9jvOnbpchkvRHnhCbsmlZr vAmsCBrsVBpeI095KBQwkNqh MeUkQDk9L4CtNem0VQMmvIck ZT0n iNHuJSygZz8unEpssReoLA3a OWKrbdirw686IwQmk0auGKDp jGSqKXebRCY0Z96jc5N8ZLIz MDAw QNG8eGE5xC0jwKuxorvstEOc pXruidHprKniKAyiQCnmQ420 GBCssVclReBzmAz6K3VnTin4 ZCBz yTtnPK1bmZKwZIogPz9ijOis cRhaBE4kVQLpjjvut083VyBk o7zoTUCciCYpHItqSTH9Z02k b3I6 XGOaNPRsJHE6tPK9xP0kxJso bjogbGVmdDsgdmVydGljYWwt NDggP424KGRzpEjmVdDunIyw bnQg BLpqEVv0W6FsLdcriCN+PC90 JLDcDA51hGPqfVXwn3qieQc2 NoMfDCIbDGF4eJqlDLfye6Nu ZXIt D68xkVOfg7Q0ZNTyzTgkhQYt EuWinSZ9sI8lQKwzdyxui9up hnhdJqdkc1ryxy39jG60A03t IHdp QOIxBPHgFJAzXVVuxIygcp0i wQ4nOv3+DRNmkBL9lTZ4hF2s PGIsExL0RZnzK734EeKzrOUn Pjxj f1lyr5mykGb0SbR4SGUabiVy yTrnXWZ5f5TjIo31J32wAQwr CQNxZWUzJLLcIURepXzqky3z dG9w Ii8+MNJcbUG6lET2rA8oSjLp ChO7QQctM735RdUuxCYuKmex S02uD2LxyWR+YKPdTky8KZJb dHls BM9rmTFgALymDl4rVBO7IrIg DdObTFglJ7MnHQFudkziwvxn vIR7GVLlHTRylD52Kl3ojPet MTBw wPZCsB1isonzx1uuaoztKwJh AHMxSWt8JSb7QNItyTunLsYv VBF5UhF8RUX2eVYhjO3iuSku bjog dH7kN4XsDMGfgputPf11qF7v PcIdYyJ4MGfaWxj+X77EK5yC LCBBTUFOREEgREFXTjwvdGQ+ PHRk HDG8bOynWNaeYWMikA1iAFYa A2g0NvFqNdI4IAdvT7QxUNRz wwxnAk10jU4vGfGgTuT5MSrw O2Zv ujR4UKOrcFOtBQbuWFK7E76q g7Y9WQOmMSZrAWH0jKJ3yA1f bGlnbjogbGVmdDsgdmVydGlj YWwt ONsnE487UNDdnRemEbT8UgLd LdR2IWP4Y9KmAwj6KQWjhEbr FC1mxUCcJTqdXq4ffQdhxWlu MC4w PNZdaudyYNCrvS0xVKXseRVu dEhzNT3dVYFabnymj762MwFi XGS9MKFdfCWsN8TosV7vAfWq MDAw JDPwI2LunVMuBAgrK349EEsq WfM6KVDtyhGkZ9CgEJFuxAgl JiD0b5I4Bh48ENDCWBEjmadw dGQ+ XJHpRXY3pNviZChpWHRtfG4h CZSiZ2x7VaWaRkY8RDwzH3Qh LXTlzckwLj10kH8rZvRsUdE0 MGlu C2SyyyY9WPYhnWZcFMbbEMC8 L45vp9X8FTSlRIWiVLE8zHS1 tG3xkZfcwvosgLRopFzqwfJa dGlj MKbcBMdcG282LRBroMbgFaKL TUFMRTwvdGQ+SYZsZUY3hExr KKdzEFZkkC3eJMJsS7o0OmDf LjA1 CCwuW7KiVCImknxlJb99nD3u ZmUtNsM2VGbkT5YlxwS4PXSi vSJnETcpOKR4A21mp3O1TJGt MDAw SVR9jQG3aV2sqLqpfizaoROs tBgrsgErwVjhUZwoVPtmR236 GELosLmqCr8BGT20BL11S6Th Pjwv dGFibGU+PHRhYmxlIHdpZHRo SLuoKUPcBvVegBjkVB3rEi4l HRXzPBEjgAtepOSkTfXzc9rn YXBz VJvoIH9maEaeE1WvpOK1KZBx d0j7Hg64Z32oZ3AybGQ+PGNv nDW5sLH6hV4tFkBfVsY1AAwe Z249 SeSyeFReMkiwu8vuc6aakUd6 OsGtYYQvvvBfiMxdIQI1v5On Uq24Z43pPMhpGJHfVHEsETYn IHZh pHhmst7aiT0jFd6+PGNvbCB3 dLU3wS5jKmNpErX7COlvO772 QcKbpOBoWfvcQ51sL3LujBO+ PHRy Xhk0QNAtdPhwMF5ujRJqOFif Cg1aJJI6BbVaIpVsIHyxD6En CABziseuwevfhQZ6AWDxDDTt aW47 Ld9mfUwuRt5wGYGbXLF3UIPd xDTmY4IpiP6rWtPyZRChNPYl J3HqvYGuQLojP107ZAssMuM8 IHZl epGlJ7UcYOIsgHwpShT3z8W1 Yh8WuPfkiFSlYR9fGtXsJOw8 N2WwOpg2VTXxjAxjVK6zhDRa ZGlu Wg5flVeqhApwZP6uIGMumpbv s358OnGhz5qaNLSiiPZvPRka CBN8Q69jz9K1TUPqNGOqEZG0 dGV4 tU0eaOdyaicxuVVguPzcyvWq iSycUPucRSqoJ173JEYliZbf KuGCYlc8W5RoQzw8SVBvrUzq ZT0n xVDzRHohTx1zwBdvoNbyED2g ERHnwfclv485HoGpy6ewLBBj eLFeDMruOUA7F40oc9Y6ZIZx MDAw KAV6vRX9aO8btTljskpcpYXq dEzopjUdwJwgWJitBDlnQ345 MDVenAqgYp0VAuz3R3AqLfn4 ZCBz bHqgLX9woIElBGbnEh8cmRfg dNkeXG2yBQSyysetz404QfCe s5xsAEFfnHXjPOskEVW6I73d b3I6 TFYvJUTaAWN5zDA7tM0rgLdr bjogbGVmdDsgdmVydGljYWwt FRnlH443IUKbcIywBbUjyYZj Ojwv dGQ+NV24gx19M8PrXtxfBiv3 ONFfJOT8gVL4iS1vECUtQFdw y1Z4pGG8W4TetvNspn1qf9km YXBz ZTo (more content not included)... Normal [facility] ED Clinical Summaryon 2023 ED Clinical Summary [facility] ? Urgent Care [address] [place] [address] Clinical Summary PERSON INFORMATION Name: KARUNA DUMONT Age: 42 Years Sex: FEMALE : 1980 MRN: Acct#: Visit Reason: Skin problem; RASH ON ARMS Arrival: 08/23/2023 14:45:23 Discharge: 08/23/2023 15:20:00 LOS: 000 00:35 Check In: 08/23/2023 14:45:23 Checkout: 08/23/2023 15:20:00 Address: [facility] [id number] PCP: Johnathon Winter MD PROVIDER INFORMATION Provider Role Assigned Unassigned Phuong Oseguera RN ED Nurse 08/23/2023 14:46:59 Yissel Resendez PA-C ED [...] Follow-Up: With: Address: When: Johnathon Winter MD [address] [place], [place] [id number] DIAGNOSIS: 1:Rash and nonspecific skin eruption; 2:Elevated blood pressure reading without diagnosis of hypertension Patient Understands: Comment: Normal [facility] ED Patient Summaryon 024 ED Patient Summary [facility] ? Urgent Care [address] [place] [address] PATIENT DISCHARGE INSTRUCTIONS Patient Information Name: KARUNA DUMONT Age: 42 Years Date of : 1980 Reason For Visit: Skin problem; RASH ON ARMS Arrival Time: 08/23/2023 14:45:23 Primary Care Physician: Johnathon Winter MD Attending Physician: Yissel Resendez PA-C Comment: Patient Education With: Address: When: Johnathon Winter MD [address] [place] [address] Rash, Adult A rash is a [...] with your condition: Medicine Take or apply qrok-jcx-emhcnhg and prescription medicines only as told by [...] a bath with: ? Epsom salts. Follow separating machine operator instructions on the packaging. You can get these at your local pharmacy or grocery store. ? Baking soda. Pour a small amount into the bath as told by your health care provider. ? Colloidal oatmeal. Follow separating machine operator instructions on the packaging. You can get this at your local pharmacy or grocery store. ? Try applying baking soda paste to your skin. Stir water into baking soda until it reaches a paste-like consistency. ? Try applying calamine lotion. This is an smtl-wtm-zhyhqdi lotion that helps to relieve itchiness. ? [...] rash from spreading. ? Take or apply ebgo-dlw-jyadeee and prescription medicines only as told by your health care provider. ? Contact a health care provider if you have new or worsening symptoms. ? Keep all follow-up visits as told by yo (more content not included)... Normal [facility] Jose 05-23-2023 L Specimen: [id number] Received: 05/24/23 Status: NATHAN Guzmán Num: [id number] Spec Type: Surgical Subm Dr: Tee Peterson MD Tissues: A BREAST CORE NO CALCS (LT BREAST) Procedures: HE/4, Gross/Micro L4, AE1-AE3/2 Age/ Patient Sex Location Account Attending Physician Karuna Dumont 42/F [facility] [id number] Tee Peterson MD SPEC NUM: [id number] RECD: 05/24/23 STATUS: NATHAN GUZMÁN NUM: [id number] GENEVA: 05/23/23- SUBM DR: Tee Peterson MD ENTERED: 05/24/23 [facility] DR: Bert,Lab SPEC TYPE: Surgical DEPT: ROLDAN [...] Time: 0.10 Formalin Fixation Time: 28.50 Specimen: [id number] Received: 05/24/23 Status: KAISEKiet Guzmán Num: [id number] Spec Type: Surgical Subm Dr: Tee Peterson MD Tissues: A BREAST CORE NO CALCS (LT BREAST) Procedures: HE/4, Gross/Micro L4, AE1-AE3/2 Patient: JuliaKaruna D [id number] (Continued) Specimen: [id number] Received: 05/24/23 (Continued) Signed (signature on file) Tootie Jordan MD 05/31/23 2106 Specimen: [id number] Received: 05/24/23 Status: NATHAN Guzmán Num: [id number] Spec Type: Surgical Subm Dr: Tee Peterson MD Tissues: A BREAST CORE NO CALCS (LT BREAST) Procedures: HE/4, Gross/Micro L4, AE1-AE3/2 Patient: Karuna Dumont [id number] (Continued) Specimen: [id number] Received: 05/24/23 (Continued) CPT Codes 28448 Specimen: [id number] Received: 05/24/23 Status: NATHAN Guzmán Num: [id number] Spec Type: Surgical Subm Dr: Tee Peterson MD Tissues: A BREAST CORE NO CALCS (LT BREAST) Procedures: HE/4, Gross/Micro L4, AE1-AE3/2 Patient: Karuna Dumont [id number] (Continued) Signed (signature on file) Tootie Jordan MD 05/31/232105 Normal [facility] MR LUMBAR SPINE [...] Yung Perry on 05/23/2023 12:47 PM Normal [facility] Free testosterone measuremen t by LC-MS/MSon 05-10-2023 Testosterone Free [Mass/Vol] 0.6 pg/mL 0.0-4.2 [facility] Comment on above: Performed at: [employer] [address] [id number] Director: Theron Roblero PhD, Phone: [phone] at: [facility] [address] [id number] Director: Katelynn Macdonald MD, Phone: [phone] No Panel Informationon 05-10 C-Peptide 2.8 ng/mL 1.1-4.4 [facility] Comment on above: C-Peptide reference interval is for fasting patients.Performed at: [employer] [address] [id number] Director: Theron Roblero PhD, Phone: [phone] Dehydroepiandrosterone Sulfate 194.0 ug/dL 57.3-279.2 [facility] Free Cortisol, Dialysis, LCMS 0.787 ug/dL . [facility] Comment on above: These tests were dev eloped and their performancecharacteristics determined by [facility]. They have not beencleared or approved by the Food and Drug Administration.Reference Range:8 AM 0.10 - 1.204 PM 0.042 - 0.872Performed at: [facility] [employer] [id number] [place], [place] [id number] Director: Kal Archibald MD, Phone: [phone] Reverse Triiodothyronine (T3) 23.0 ng/dL 9.2-24.1 [facility] Comment on above: This test was develo ped and its performance characteristicsdetermined by [facility]. It has not been cleared orapproved by the Food and Drug Administration.Performed at: [facility] [address] [id number] Director: Katelynn Macdonald MD, Phone: [phone] Sex Hormone Binding Globulin 49.1 nmol/L 24.6-122.0 [facility] Comment on above: Performed at: - [facility] [address] [id number] Director: Theron Roblero PhD, Phone: [phone] Testosterone Level 22 ng/dL 8-60 [facility] Plasma serotonin measurement (mass/volume)on 05-10-2023 Serotonin (P) [Mass/Vol] 105 ng/mL 31-207 [facility] Comment on above: This test was develo ped and its performance characteristicsdetermined by [facility]. It has not been cleared orapproved by the Food and Drug Administration.Performed at: [facility] [address] [id number] Director: Katelynn Macdonald MD, Phone: [phone] Serum estrone measurementon 05-10-2023 E1 [Mass/Vol] 65 pg/mL 231 [facility] Comment on above: Range Adult (Premeno pausal) 27 - 231 Menstrual Cycle (1-10 days) 19 - 149 Menstrual Cycle (11-20 days) 32 - 176 Menstrual Cycle (21-30 days) 37 - 200Performed at: [facility] [place], [place] [id number] Director: Katelynn Macdonald MD, Phone: [phone] Serum or plasma estradiol (E 2) measurement (mass/volume)on 05-10-2023 E2 [Mass/Vol] 98.9 pg/mL . [facility] Comment on above: Adult Female Range F ollicular phase 12.5 - 166.0 Ovulation phase 85.8 - 498.0 Luteal phase 43.8 - 211.0 Postmenopausal <6.0 - 54.7 1st trimester 215.0 - >4300.0Roche ECLIA methodology Serum or plasma insulin mariam urement (units/volume)on 05-10-2023 Insulin Qn 7.0 u[iU]/mL 2.6-24.9 [facility] Comment on above: Performed at: [facility] [id number] [place], [place] [id number] Director: Theron Roblero PhD, Phone: [phone] Serum or plasma progesterone measurement (mass/volume)on 05-10-2023 Progesterone [Mass/Vol] 0.1 ng/mL . [facility] Comment on above: Follicular phase 0.1 - 0.9 Luteal phase 1.8 - 23.9 Ovulation phase 0.1 - 12.0 First trimester 11.0 - 44.3 Second trimester 25.4 - 83.3 Third trimester 58.7 - 214.0 Postmenopausal 0.0 - 0.1Performed at: [place], [place] [id number] Director: Theron Roblero PhD, Phone: [phone] Serum or plasma thyroperoxid ase antibody assay (units/volume)on 05-10-2023 TPO Ab Qn 11 [IU]/mL 0-34 [facility] Thyroglobulin [Mass/volume] in Serum or Plasmaon 05-10-2023 Thyroglobulin [Mass/Vol] <1.0 [IU]/mL 0.0-0.9 [facility] Comment on above: Thyroglobulin Antibo dy measured by [facility] AcquisitionMethodologyPerformed at: [place], [place] [id number] Director: Theron Roblero PhD, Phone: [phone] XR LUMBAR SPINE AP, LATERAL, FLEXION AND [...] most pronounced at L5-S1. Mild levoconvex curvature. Workstation:[facility] Finalized by Yung Perry on 05/05/2023 1:28 PM Normal [facility] Coding Summaryon 03-20-2023 Coding Summary HTMLBase [id number] JV8TVSOtF99blOHxsH4yL3YE TElOSywgQVBQTElOSyIgbmFt TN1yhXDwLLGl IC8+XS3wLMViIyppaUOhm2H1 oEC3L12hgx0aLVyrpYR4WRZu FbZqmtkhp3zboPp7IWesUxyu OyBt SIRqtQ57RLV7hP70Bd39cNXf rEFyz0xsyLr9BjDbBAUxLCJ2 jVyoRDyec7IfRQRqO81deQSb c2U6 QLGklWffjLUzMxPxlEA0eG2x WUlaxnwha5vusohjVwq3hb67 qZOvd0O7bNC4R1JmahP5VCXp bGQg BxsicUOOdE5atsozz9lasglp GrCiHTMiSKz3PEk7ETDgtBqh IjGiHP63WEU0KFChrcVkE6Sh LWFs eSpeTqI5w6E4Mg8KB1JDQyto N3BCBBHQXAwddFP+CB52jc09 B1LoPwloTtp2YBEmURY8sQB1 aD0n KGJaWSzyo1B0lNM1N9HbrxXn ru6jn2hwBLTrWWmbI55ytZAh w6X6KZVbbMC1IXKkvKecMyOm aG93 Oyc+LKLwxCksu2LwQjuex3rn t8irxVa9ApcbVRXmnmQrgMvq GOU3n4OiAz1oBVRoeBA7gRQ5 aD0i DgDiYlT3AFuhI230HhJtmGQq EdekH73rR1ItfYD+PHRyPjx0 IJFfvWoaKV1mN2KqEWSwoxyh bGVm lXlmTJ6hPXZoppveQBJmjZ8c TXGrL9u4NcVdWwG6IIctY7Rg IIDdmzgzTx17lI4gWoOgOdX8 MGlu Z9GpadC8UWLkbMArKIwfDAK4 H10wn0I1PAHtFASsOLR6wET0 nM7shNszjbkolOVcfIwdhnAz dGlj RJkwXDkqZ641BJIlvGsqHdJb ZGluZyBEYXRlOiAgMTIvMTgv MjAyMzwvdGQ+CIRyNWU3mDcb PSAn yLYgVUxcGp0dsPkgqKftJD1a WXSiyakwUEFjwT3tZALknHWy hDntAF3hXGIykpqdm356KjYf MHB0 OHZtdNGtA6SgpK6tFpByQJKm KXClM7QvjUOqNEbdV094PJnh XqC0LMInojOtH1ZeQIGbaOqc OiB0 p4G2Iu7Fe3EtbqjyZ3HqxPMe SdYuBjofDTp8A0ApXidetQJ+ XX83CWRxWA03CYb9NWV0mWox PSdi WUAeS6AlmX6oTsPtHLNpPVEr Oyc+PHRhYmxlIHdpZHRoPScx SLAdSmLqqTanTR0oBv5hPIAt LWNv jBwciJSnXnZmn2ciBZCcVMgk TX2fpJklQ7VuzDG4CSPoy7g3 Yp80U91lE5PytHV+PGNvbCB3 aWR0 jE4vRkTaAeL5HAbiQ839IhLj dTVkYzfyr2zkx5nusWq6OfX7 MSKynpYemEjsIWI8n7XuOy19 Y29s IHdpZHRoPSIxNSUiIHZhbGln lq3rqD4cQo3+XKPlsTC6wQV6 eS2aOcSeJkK2HHhxO152QbZw cCIv Ypxyu5kmo9hhnLr4BcLoPKIs fbPerGwpEWB7u6NyMl82G0Su tSktl0FiYpd2zu26xHAcz8B3 bGU9 F0ZjTTOsruqizAJdlRmpRC6j PPFtdvdeOSUypL4aTYIoW8t8 OfSgMhI1EKvqS0IpncR7WXVd bGQg MXOheIPVdK5wdpjgu6hrparv LsFpILRvVDo8RFe5YJSjnShv IuCuLOX9BgD6ESA9qVUkkO9i bGln zmmhnD5pSnl+JHY3bHMcxCCI XP4cNfrbdTH+OXBgLDE5pNmd SSqzQBUwtE6pTCSfP9u2IfJo LjA1 GExkQ8TwunZ0OFJojGRwJAVk qLJThZ2lygcyt9igrbguZvDh CEOgXLo1XZh3HVQtuRgkKiLx ZWZ0 WdW9GFL1yCBmtG6vcHgmzsuk cT7nEmu+QhfiyOhwXDG2RLp0 J8YvUbw9HOIczAejCU4qiIUa ZGlu Nv3htWmchVkhGZ2jUOLjrmtj v298DbPcf7dlDPWnhRKuSHer LRV6W39qq2N0TOUnQNPlGNI6 dGV4 cT6kfRvxsoxlfVOaxQcnzmWo zIgcVHmpJPjqF470NQVouWxu OlKiPOu8H6SiJjt1EVXjnLih ZT0n mCBoYQxlLh4kcDlwbKgvCC9x WUTarwxua970IzTpl0bzZZZt iGNkUVtwPAK8M43st4C2DAMb MDAw CDE4iKK2cQ5xpApezlfrcKMt lOypdeKnhHzjVPdrNLviO547 ALBpiKzmTiXwqDe9J7TjBhy8 ZCBz jYrcSD4wpWOnFKgyAj5kwRfs tIggEY4dRNKrpxaeu239ZhHe e7nyHYAbjSZtWQgnYQZ5F15a b3I6 QTRtBSJyYCP3vDV2yZ4zrUos bjogbGVmdDsgdmVydGljYWwt YTvbP538CYXalVgaSnHngRjx bnQg GVckKHz2T5KvFazspAO+PC90 UVAzOO84uJEdvVGjp8xfqCk9 LrWcOSLsZZH7cErjQDskx4Mj ZXIt B28guQEzw4K8ATBxgSrqpWWz DxOkhFK1oV3vBCqympzlg4cw wcpcQimpp4ascd03nD03Q29r IHdp BOVtGXVpNGZxQATqnCswmy8p sX1xEz1+MLWsrGT0zPT6gS1p NDRlZgJ9LGmjZ449EkCnmUWa Pjxj f6wjx9icsCw0GmY2FGQzvjIx wYzqSSI1h1KkUa74R70zOYjc IDXlRFRuEUSkSUUvmYsvgc4o dG9w Ii8+MJHflPE0oQV8yC2hAdXu KeT7SIweO419HzQwgDOjEufg G48iV2BcrOW+NDJdLoi4GZBw dHls GL9ohXUhCUytVs4iRCD4LzMv AfUmVMaxY1GeZLSzxablmshg uIO3QLUfGEJqvO01Lv0cuAsp MTBw zYOSaR1nsmrzs5cfepgdHjTw QTGwXLf9PYo3TEYtjTurIcKq RQG7GkF6NUD9hBTumO8xbMeu bjog pG4oZ6VmYYUkyhgeId29gZ0g SvZoCvR6ILwkSkg+A71IJ2yC LCBBTUFOREEgREFXTjwvdGQ+ PHRk SYS7qCsiMXekPNMayB1vGTVq W9e3TeXfYiH7VWggU6JyPUUo dlwgLh98kA4sBnVhEiC0ZSra O2Zv qeL3AIAbfFPeEDyqDHY2G60t d3Q1BFKdHMGlMSF6iHB4kM6v bGlnbjogbGVmdDsgdmVydGlj YWwt FStrV236EYYypPsxLgW8BmXy XaA8TMB4N8DeJbi5AKLsoBaq EH0eyKVzBMrbNx2aiCarfJeg MC4w EVXyhmzmALXxcY0fRSBrhJNy zIobKD0oATSmqtabv567IoRn OCT0ZHEcyETqQ4NxlI1gTtIa MDAw LBUyY3XeeFJrKPylI786IVpz StO8IJEcshYvN9JdBIBwpTen GiE8e4O5Kt96KXQMSWWztkow dGQ+ HYYlCLT0sYwwSCreWOLzeB6z YZRjM8r8GyHrHdH8BMzmO0Cw PCMiwxymVg96iV2zAoJfOoC6 MGlu P5YzonJ6RGMjdZDaYNkgUGL9 K76eb8Z8AHAtBAJxKWO4cYE7 aS0tdCdpfegklSYtrUhhgtLx dGlj XOnpCJhuU158WGYwdPzyEqVX TUFMRTwvdGQ+WNPySJW8pXwg YTvwOLUccX4jBBGeK6u2CcGl LjA1 ZXmyR6PgBNXjrawtPt38mJ8e LiMmTrV0YYbgA6JobzA4LIFj hCQyWZolIRG9Y04bq6C3EPVi MDAw UUM3fNK2hC8dqMcfehnkcPDc eKntpbPzvSztBVusFEksJ082 RXRaqEdmPm8JSX04RO38H4Bx Pjwv dGFibGU+PHRhYmxlIHdpZHRo QQwmDPRlPxJttSgjVF1vWc4j GHIeCMEgfNympVMbEdPyn0nt YXBz BHtnDO0roHauB4UzaOX5EHAo q7h2Gf77M38yN8AswMJ+PGNv bEV2gPN6qR9lVnJeVlT4ZEkt Z249 RdPioQPqDcuqc9cnu8gswWo3 ZtHmNZIsxxYzvCnsPVR5a3Qd Gu46A54yZErlAYYmFFMbHEPt IHZh vVscli3vtD0sLw3+PGNvbCB3 zRD9eP4dRsDsIxJ9UNfpF269 NhDhqESmMfdfN95wB7LdsJN+ PHRy Rng2PUInpWobNC1wxBGfQMrp Sp5uYLR2EjLjMzDkYEguE7Zy RMCjbwtofglraLV5JSSqZJQw aW47 Ln4qjFssLh8tLSChKKW1WEBz aWDcZ2PgeT4yGwBnTHPeNBPr X7ThpXAsIJttJ477KBufCuR0 IHZl ygMjP9JzQRRaeYznSxS4c8O3 Uk5HbKhdpYZrQE0uRoOtPZq1 A2WrGtx9SIKqwJtqDH0ltCHn ZGlu Cs3syQtsxPltOM2nTFPbahrj o144ApBxx7xwWMOrfDWlQBcq QXI4C09kw4D5TTZzHVErXDE6 dGV4 wX5xvTlwdqzcsXPtuDxuaeSc rMrcDIueYNbsT712VBXbfQhx TaCGIjy5S2AzMmf5HSXfaEgb ZT0n jRKmZGguNc4hhJlzuKncXC7u NJIfukwnb667QiXie1vhHONq gICdGCnaTTT8L05nx8Q1GXQh MDAw PJK8xRP9hX6qbBpmefploPUj qDdiciTvqJqdISwyMDwbT217 XHCjkUoaTc5HSqd0H7JfHmc0 ZCBz fElcDP0imJFzBBlhJl7tjQvg cTouKH9eNZRrvqlit071ZyPu e5keEDHkyWZxTSisIBO7A70d b3I6 WLQwTIKkVXN9pFV7iU1dzEkw bjogbGVmdDsgdmVydGljYWwt BRskX452FUBshEmlVcBnnVCy Ojwv dGQ+GP08vk37J8NcLzgaZzk7 QQIlZHT1cGQ2bA2hLUTdEAjc i7M0sQN0L5VhrjPeyl1vb5zs YXBz ZTo (more content not included)... Normal [facility] ED Clinical Summaryon 2022 ED Clinical Summary [facility] ? Urgent Care [address] [place] [id number] Clinical Summary PERSON INFORMATION Name: KARUNA DUMONT Age: 42 Years Sex: FEMALE : 1980 MRN: Acct#: Visit Reason: UC - Finger/Thumb Injury; RT RING FINGER INJURY Arrival: 03/09/2023 10:15:32 Discharge: 03/09/2023 12:03:00 LOS: 000 01:48 Check In: 03/09/2023 10:15:32 Checkout: 03/09/2023 12:03:00 Address: [address] [facility] [address] PCP: Johnathon Winter MD PROVIDER INFORMATION Provider Role Assigned Unassigned Christiano LEAL, Reyna ED Nurse 03/09/2023 10:34:58 Janis DICKEY, Sanchez Padilla ED PA 03/09/2023 10:40:50 VITALS INFORMATION Vital [...] With: Address: When: YUNG LAWS DO [address] [address] Within 3 to 5 days [...] verbalizes understanding of instructions given Comment: Normal [facility] ED Patient Summaryon 023 ED Patient Summary [facility] ? Urgent Care [address] [place] [address] [id number] PATIENT DISCHARGE INSTRUCTIONS Patient Information Name: KARUNA DUMONT Age: 42 Years Date of : 1980 [facility]: [id number] Reason For Visit: UC - Finger/Thumb Injury; RT RING FINGER INJURY Arrival Time: 03/09/2023 10:15:32 Primary Care Physician: Johnathon Winter MD Attending Physician: Sanchez John Comment: Patient Education With: Address: When: YUNG LAWS DO [address] [place] [id number] Within 3 to 5 days Comments: Diagnosis [...] or cold (more content not included)... Normal [facility] [place] 023 Urgent Care Record [facility] ? Urgent Care [address] [place] [address] PATIENT DISCHARGE INSTRUCTIONS Patient Information Name: KARUNA DUMONT Age: 42 Years Date of : 1980 [facility]: [id number] Reason For Visit: UC - Finger/Thumb Injury; RT RING FINGER INJURY Arrival Time: 03/09/2023 10:15:32 Primary Care Physician: Johnathon Winter MD Attending Physician: Sanchez John Comment: Visit Diagnosis: Diagnoses This Visit [place] deformity of right ring finger (M20.011) UC - Finger/Thumb Injury ([id number]) If you received any narcotics, sedation, or [...] With: Address: When: YUNG LAWS DO [address] [address] Within 3 to 5 days [...] and treatment you received today in the [facility] were for an urgent problem and are not intended as complete care. It is important for you to follow up with a doctor, nurse practitioner, or physician?s title assistant for ongoing care. If your symptoms [...] so we can reach you if necessary. [facility] has provided you with a complete list of medications post discharge. Please inform your body shop technician/provider of your visit and for further [...] of your st (more content not included)... [facility] XR Finger Righton 03-09-2023 XR Finger [...] MD 03/09/23 11:56 a Technologist: Vannesa DANGELO [facility] No Panel Informationon 10-11 No acute bony abnormalities are noted [facility] EXAMINATION: THREE XRAY [...] well maintained. Soft tissue swelling. Calcaneal spurs [facility] Miller Romo MD [...] IMPRESSION: No acute bony abnormalities are noted [facility] Radiology Study observation (narrative) [facility] No Panel InformationOrdered By: Miller Romo on 10-11-2022 [facility] Work Phone: XR ANKLE RIGHT [...] Miller Romo MD 10/11/22 Final result Normal [facility] XR FOOT RIGHT (MIN 3 VIEWS)o [...] Miller Romo MD 10/11/22 Final result Normal [facility] PAP ACOG PANEL 2: 30 to 65on 07-16-2022 . . Normal [facility] Comment on above: Result Comment: Perf ormed at: WB Performed By: #### [id number] #### [facility] [address] [address] [address] Dang Kirby Age Gdln ACOG Testing 30-65 Normal [facility] Comment on above: Performed By: #### [id number] #### [facility] [address] [address] [address] Dang Kirby DIAGNOSIS: Comment Normal [facility] Comment on above: Result Comment: NEGA TIVE FOR INTRAEPITHELIAL LESION OR MALIGNANCY. THIS SPECIMEN WAS RESCREENED PART OF OUR JAW[employer] BREAKER PROGRAM. Performed at: WB Performed By: #### [id number] #### [facility] [address] [address] [address] Dang Kirby HPV Aptima Negative Normal Negative [facility] Comment on above: Result Comment: This nucleic acid amplification test detects fourteen high-risk HPV types (16,18,31,33,35,39,45,51,52,56,58,59,66,68) without differentiation. Performed at: =G Performed By: #### [id number] #### [facility] [address] [address] [address] Dang Kirby HPV Genotype Reflex Comment Normal [facility] Comment on above: Result Comment: Crit eria not met, HPV Genotype not performed. Performed at: WB Performed By: #### 4 [id number] #### [facility] [address] [address] [address] Dang Kirby Methodology: Comment Normal [facility] Comment on above: Result Comment: This liquid based ThinPrep(R) pap test was screened with the use of an image guided system. Performed at: WB Performed By: #### 4 [id number] #### [facility] [address] [place] [address] Dr. Dang Kirby Note: Comment Normal [facility] Comment on above: Result Comment: The Pap smear is a screening test designed to aid in the detection of premalignant and malignant conditions of the uterine cervix. It is not a diagnostic procedure and should not be used as the sole means of detecting cervical cancer. Both false-positive and false-negative reports do occur. . Performed at: WB Performed By: #### [id number] #### [facility] [address] [place] [address] Dr. Dang Kirby Performed by: Comment Normal [facility] Comment on above: Result Comment: Flavia Stanford, [employer] (ASCP) Performed at: WB Performed By: #### 4 [id number] #### [facility] [address] [place] [address] Dr. Dang Kirby QC reviewed by: Comment Normal [facility] Comment on above: Result Comment: Valentino Victor, [employer] Performed at: WB Performed By: #### 4 [id number] #### [facility] [address] [place] [address] Dr. Dang Kirby Specimen adequacy: Comment Normal [facility] Comment on above: Result Comment: Sati sfactory for evaluation. No endocervical component is identified. Performed at: WB Performed By: #### 4 [id number] #### [facility] [address] [place] [address] Dr. Dang Kirby MG MAMM DIAGNOSTIC 3D RAMA CA Don 04-29-2022 MG MAMM DIAGNOSTIC 3D RAAM CAD Patient: KARUNA DUMONTCelia Exam Date: 04/29/2022 : 1980 Gender:F Ordering : DR SANJEEV LOPEZ . Admission #: [id number] Family : Order #: [id number] CLICK HERE TO VIEW EXAM RADIOLOGY REPORT PROCEDURE: MAMMOGRAM DIAGNOSTIC 3D BILATERAL CAD, 04/29/2022, 10:05 ULTRASOUND BREAST RIGHT LIMITED, 04/29/2022, 11:04 COMPARISON: None. INDICATIONS: Pain of breast Calculator Name NCI Breast Cancer Risk Assessment Tool 5 Year Breast Cancer Risk Not Reported. Lifetime Breast Cancer Risk Not Reported. Personal Breast Cancer No Personal Ovarian Cancer No Treatments None Family Cancers None LOCATION: [facility] BREAST COMPOSITION: Scattered areas fibroglandular [...] M.D. on 04/29/2022 at 14:55 Normal [facility] US BREAST RIGHT LIMITEDon US BREAST RIGHT LIMITED Patient: KARUNA DUMONTCelia Exam Date: 04/29/2022 : 1980 Gender:F Ordering : DR SANJEEV LOPEZ . Admission #: [id number] Family : Order #: [id number] CLICK HERE TO VIEW EXAM RADIOLOGY REPORT PROCEDURE: MAMMOGRAM DIAGNOSTIC 3D BILATERAL CAD, 04/29/2022, 10:05 ULTRASOUND BREAST RIGHT LIMITED, 04/29/2022, 11:04 COMPARISON: None. INDICATIONS: Pain of breast Calculator Name NCI Breast Cancer Risk Assessment Tool 5 Year Breast Cancer Risk Not Reported. Lifetime Breast Cancer Risk Not Reported. Personal Breast Cancer No Personal Ovarian Cancer No Treatments None Family Cancers None LOCATION: [facility] BREAST COMPOSITION: Scattered areas fibroglandular [...] on 04/29/2022 at 14:55 Normal [facility] CT CERVICAL SPINE WO CONTRAS Ton [...] Oziel Fox MD 02/16/22 Final result Normal [facility] XR CLAVICLE LEFTon XR CLAVICLE LEFT [...] Miller Romo MD 02/16/22 Final result Normal [facility] XR SHOULDER LEFT (MIN 2 VIEW [...] Emil Flores MD 02/16/22 Final result Normal [facility] CBC with Auto Differentialon 01-03-2022 [facility] # [facility] Absolute Lymph # 1.60 [facility] Absolute Taylor # 0.40 [facility] Basophils (Bld) [#/Vol] 0.00 10*3/uL [facility] Basophils/100 WBC (Bld) 1 % 0 - 2 % B ON [facility] Eosinophils/100 WBC (Bld) 2 % 1 - 4 % [facility] Hematocrit (Bld) [Volume fraction] 46.0 % 36 - 46 % [facility] Hemoglobin (Bld) [Mass/Vol] 15.4 g/dL 12 - 16 g/dL [facility] Interpretation and review of laboratory results Abnormal [facility] Lymphocytes/100 WBC (Bld) 29 % 24 - 44 % [facility] MCH (RBC) [Entitic mass] 28.6 pg 26 - 34 pg [facility] MCHC (RBC) [Mass/Vol] 33.4 g/dL 31 - 3 7 g/dL [facility] MCV (RBC) [Entitic vol] 85.9 fL 80 - 100 fL [facility] Monocytes/100 WBC (Bld) 8 % 2 - 11 % B ON [facility] Platelet distribution width (Bld) [Ratio] 14.1 % 12.5 - 15.4 % [facility] Platelet mean volume (Bld) [Entitic vol] 7.6 fL 6 - 12 fL [facility] Platelets (Bld) [#/Vol] 277 10*3/uL [facility] RBC (Bld) [#/Vol] 5.36 10*6/uL High 4 - 5.2 m/uL [facility] Segmented neutrophils/100 WBC (Bld) 60 % 36 - 66 % [facility] Segs Absolute 3.40 [facility] WBC (Bld) [#/Vol] 5.6 10*3/uL [facility] CBC with Diffon 01-03-2022 Abs. Basophil 0.00 k/uL Normal 0.0-0.2 [facility] Comment on above: Performed By: #### H CG, LIP, MG, CDP, CMPX #### [place] [address] [employer] Supervisor: Estevan Corcoran MD Abs.Neutrophil (Seg) 3.40 k/uL Normal 1.8-7.7 [facility] Comment on above: Performed By: #### H CG, LIP, MG, CDP, CMPX #### [place] [address] [employer] Supervisor: Estevan Corcoran MD Basophils/100 WBC (Bld) 1 % Normal 0-2 [facility] Comment on above: Performed By: #### H CG, LIP, MG, CDP, CMPX #### [place] [address] [employer] Supervisor: Estevan Corcoran MD Eosinophils (Bld) [#/Vol] 0.10 10*3/uL Normal 0.0-0.4 [facility] Comment on above: Performed By: #### H CG, LIP, MG, CDP, CMPX #### [place] [address] [employer] Supervisor: Estevan Corcoran MD Eosinophils/100 WBC (Bld) 2 % Normal 1-4 [facility] Comment on above: Performed By: #### H CG, LIP, MG, CDP, CMPX #### [place] [address] [employer] Supervisor: Estevan Corcoran MD Erythrocyte distribution width (RBC) [Ratio] 14.1 % Normal 12.5-15.4 [facility] Comment on above: Performed By: #### H CG, LIP, MG, CDP, CMPX #### [place] [address] [employer] Supervisor: Estevan Corcoran MD Hematocrit (Bld) [Volume fraction] 46.0 % Normal 36-46 [facility] Comment on above: Performed By: #### H CG, LIP, MG, CDP, CMPX #### [place] [address] [employer] Supervisor: Estevan Corcoran MD Hemoglobin (Bld) [Mass/Vol] 15.4 g/dL Normal 12.0-16.0 [facility] Comment on above: Performed By: #### H CG, LIP, MG, CDP, CMPX #### [place] [address] [employer] Supervisor: Estevan Corcoran MD Lymphocytes (Bld) [#/Vol] 1.60 10*3/uL Normal 1.0-4.8 [facility] Comment on above: Performed By: #### H CG, LIP, MG, CDP, CMPX #### [place] [address] [employer] Supervisor: Estevan Corcoran MD Lymphocytes/100 WBC (Bld) 29 % Normal 24-44 [facility] Comment on above: Performed By: #### H CG, LIP, MG, CDP, CMPX #### [place] [address] [employer] Supervisor: Estevan Corcoran MD MCH (RBC) [Entitic mass] 28.6 pg Normal 26-34 [facility] Comment on above: Performed By: #### H CG, LIP, MG, CDP, CMPX #### [place] [address] [employer] Supervisor: Estevan Corcoran MD MCHC (RBC) [Mass/Vol] 33.4 g/dL Normal 31-37 [facility] Comment on above: Performed By: #### H CG, LIP, MG, CDP, CMPX #### [place] [address] [employer] Supervisor: Estevan Corcoran MD MCV (RBC) [Entitic vol] 85.9 fL Normal 80-100 [facility] Comment on above: Performed By: #### H CG, LIP, MG, CDP, CMPX #### [place] [address] [employer] Supervisor: Estevan Corcoran MD Monocytes (Bld) [#/Vol] 0.40 10*3/uL Normal 0.1-1.2 [facility] Comment on above: Performed By: #### H CG, LIP, MG, CDP, CMPX #### [place] [address] [employer] Supervisor: Estevan Corcoran MD Monocytes/100 WBC (Bld) 8 % Normal 2-11 [facility] Comment on above: Performed By: #### H CG, LIP, MG, CDP, CMPX #### [place] [address] [employer] Supervisor: Estevan Corcoran MD Neutrophil (Seg) 60 % Normal 36-66 [facility] Comment on above: Performed By: #### H CG, LIP, MG, CDP, CMPX #### [place] [address] [employer] Supervisor: Estevan Corcoran MD Platelet mean volume (Bld) [Entitic vol] 7.6 fL Normal 6.0-12.0 [facility] Comment on above: Performed By: #### H CG, LIP, MG, CDP, CMPX #### [facility] [id number] [place], [place] [id number] [employer] Supervisor: Estevan Corcoran MD Platelets (Bld) [#/Vol] 277 10*3/uL Normal 140-450 [facility] Comment on above: Performed By: #### H CG, LIP, MG, CDP, CMPX #### [place] [id number] [id number] [employer] Supervisor: Estevan Corcoran MD RBC (Bld) [#/Vol] 5.36 10*6/uL High 4.0-5.2 [facility] Comment on above: Performed By: #### H CG, LIP, MG, CDP, CMPX #### [place] [id number] [employer] Supervisor: Estevan Corcoran MD WBC (Bld) [#/Vol] 5.6 10*3/uL Normal 3.5-11.0 [facility] Comment on above: Performed By: #### H CG, LIP, MG, CDP, CMPX #### [place] [id number] [place] [address] [employer] Supervisor: Estevan Corcoran MD CT ABDOMEN PELVIS [...] Papito Mishra MD 01/03/22 Final result Normal [facility] CT ABDOMEN PELVIS W IV CONTR AST Additional Contrast? Noneon 01-03-2022 1. Fluid within smal l bowel loops and ascending colon which can be seen as sequela of a gastroenteritis. 2. Prior appendectomy. Prior cholecystectomy. 3. Fatty liver. 4. Mild colonic diverticulosis. 5. Small midline fat containing periumbilical hernia. 6. No clear evidence for small bowel obstruction. [facility] RIS CONSOLIDATED EXAMINATION: CT OF THE [...] L5-S1. Mild levoscoliosis of the lumbar spine. [facility] Papito Mishra MD - [...] No clear evidence for small bowel obstruction. [employer] Phone: Radiology Study observation (narrative) [employer] Phone: CT ABDOMEN PELVIS W IV CONTR AST Additional Contrast? NoneOrdered By: Papito Mishra on 01-03-2022 [employer] Phone: Comp Metabolic Pr/rfx MGon 1 0 ALT [Catalytic activity/Vol] 28 U/L Normal 5-33 [facility] Comment on above: Performed By: #### H CG, LIP, MG, CDP, CMPX #### [place] [id number] [employer] Supervisor: Estevan Corcoran MD (cont.) Normal [facility] Comment on above: Result Comment: Aver age GFR for 30-39 years old: 107 mL/min/1.73sq m Chronic Kidney Disease: <60 mL/min/1.73sq m Kidney failure: <15 mL/min/1.73sq m eGFR calculated using average adult body mass. Additional eGFR calculator available at: http://[email or web address]/[email or web address]_[email or web address].htm Performed By: #### H CG, LIP, MG, CDP, CMPX #### [place] [address] [employer] Supervisor: Estevan Corcoran MD Albumin [Mass/Vol] 4.3 g/dL Normal 3.5-5.2 [facility] Comment on above: Performed By: #### H CG, LIP, MG, CDP, CMPX #### [place] [id number] [employer] Supervisor: Estevan Corcoran MD Albumin/Glob Ratio 1.4 Normal 1.0-2.5 [facility] Comment on above: Performed By: #### H CG, LIP, MG, CDP, CMPX #### [address] [address] [employer] Supervisor: Estevan Corcoran MD Alkaline Phos 105 U/L High 35-104 [facility] Comment on above: Performed By: #### H CG, LIP, MG, CDP, CMPX #### [place] [address] [employer] Supervisor: Estevan Corcoran MD Anion gap [Moles/Vol] 13 mmol/L Normal 9-17 [facility] Comment on above: Performed By: #### H CG, LIP, MG, CDP, CMPX #### [place] [address] [employer] Supervisor: Estevan Corcoran MD AST [Catalytic activity/Vol] 26 U/L Normal <32 [facility] Comment on above: Performed By: #### H CG, LIP, MG, CDP, CMPX #### [place] [address] [employer] Supervisor: Estevan Corcoran MD Bilirubin [Mass/Vol] 0.3 mg/dL Normal 0.3-1.2 [facility] Comment on above: Performed By: #### H CG, LIP, MG, CDP, CMPX #### [place] [address] [employer] Supervisor: Estevan Corcoran MD Calcium [Mass/Vol] 8.7 mg/dL Normal 8.6-10.4 [facility] Comment on above: Performed By: #### H CG, LIP, MG, CDP, CMPX #### [place] [address] [employer] Supervisor: Estevan Corcoran MD Chloride [Moles/Vol] 104 mmol/L Normal 98-107 [facility] Comment on above: Performed By: #### H CG, LIP, MG, CDP, CMPX #### [place] [id number] [employer] [employer] Supervisor: Estevan Corcoran MD CO2 [Moles/Vol] 21 mmol/L Normal 20-31 [facility] Comment on above: Performed By: #### H CG, LIP, MG, CDP, CMPX #### [place] [address] [employer] Supervisor: Estevan Corcoran MD Creatinine [Mass/Vol] 0.60 mg/dL Normal 0.50-0.90 [facility] Comment on above: Performed By: #### H CG, LIP, MG, CDP, CMPX #### [place] [address] [employer] Supervisor: Estevan Corcoran MD GFR, Amer >60 Normal >60 [facility] Comment on above: Performed By: #### H CG, LIP, MG, CDP, CMPX #### [place] [address] [employer] Supervisor: Estevan Corcoran MD GFR,non Amer >60 Normal >60 [facility] Comment on above: Performed By: #### H CG, LIP, MG, CDP, CMPX #### [place] [address] [employer] Supervisor: Estevan Corcoran MD Glucose [Mass/Vol] 105 mg/dL High 70-99 [facility] Comment on above: Performed By: #### H CG, LIP, MG, CDP, CMPX #### [place] [address] [employer] Supervisor: Estevan Corcoran MD Potassium [Moles/Vol] 3.5 mmol/L Low 3.7-5.3 [facility] Comment on above: Performed By: #### H CG, LIP, MG, CDP, CMPX #### [place] [address] [employer] Supervisor: Estevan Corcoran MD Protein [Mass/Vol] 7.4 g/dL Normal 6.4-8.3 [facility] Comment on above: Performed By: #### H CG, LIP, MG, CDP, CMPX #### [facility] [place] [id number] [place] [address] [employer] Supervisor: Estevan Corcoran MD Sodium [Moles/Vol] 138 mmol/L Normal 135-144 [facility] Comment on above: Performed By: #### H CG, LIP, MG, CDP, CMPX #### [id number] [place] [address] [employer] Supervisor: Estevan Corcoran MD Urea nitrogen [Mass/Vol] 12 mg/dL Normal 6-20 [facility] Comment on above: Performed By: #### H CG, LIP, MG, CDP, CMPX #### [place] [id number] [place] [address] [employer] Supervisor: Estevan Corcoran MD Comprehensive Metabolic Pane l w/ Reflex to MGon 01-03-2022 Albumin [Mass/Vol] 4.3 g/dL 3.5 - 5.2 g/dL [facility] Albumin/Globulin [Mass ratio] 1.4 {ratio} 1 - 2.5 [facility] ALP (Bld) [Catalytic activity/Vol] 105 U/L High 35 - 104 U/L [facility] ALT [Catalytic activity/Vol] 28 U/L 5 - 33 U/L [facility] Anion gap [Moles/Vol] 13 mmol/L 9 - 17 mmol/L [facility] AST [Catalytic activity/Vol] 26 U/L NINF - 32 U/L [facility] Bilirubin [Mass/Vol] 0.3 mg/dL 0.3 - 1 .2 mg/dL [facility] Calcium [Mass/Vol] 8.7 mg/dL 8.6 - 10. 4 mg/dL [facility] Chloride [Moles/Vol] 104 mmol/L 98 - 10 7 mmol/L [facility] CO2 [Moles/Vol] 21 mmol/L 20 - 31 mmol/L [facility] Creatinine [Mass/Vol] 0.6 mg/dL 0.5 - 0.9 mg/dL [facility] GFR >60 60 - PI NF mL/min [facility] GFR Non- >60 60 - PINF mL/min [facility] GFR/1.73 sq M.predicted MDRD (S/P/Bld) [Vol rate/Area] [facility] Comment on above: Average GFR for 30-3 9 years old: 107 mL/min/1.73sq m Chronic Kidney Disease: <60 mL/min/1.73sq m Kidney failure: <15 mL/min/1.73sq m eGFR calculated using average adult body mass. Additional eGFR calculator available at: http://www.[employer]imado/multiple_crcl_2012.htm Glucose [Mass/Vol] 105 mg/dL High 70 - 99 mg/dL [facility] Interpretation and review of laboratory results Abnormal [facility] Potassium [Moles/Vol] 3.5 mmol/L Low 3.7 - 5.3 mmol/L [facility] Protein [Mass/Vol] 7.4 g/dL 6.4 - 8.3 g/dL [facility] Sodium [Moles/Vol] 138 mmol/L 135 - 144 mmol/L [facility] Urea nitrogen (BldV) [Mass/Vol] 12 mg/dL 6 - 20 mg/dL [facility] HCG Qualitative, Serumon hCG Qual Negative NEGATIVE [facility] Comment on above: Specimens with hCG l evels near the threshold of the test (25 mIU/mL) may give a negative or indeterminate result. In such cases, another test should be performed with a new specimen in 48-72 hours. If early is suspected clinically in this setting, correlation with quantitative serum b-hCG level is suggested. [facility] has confirmed the use of plasma for this test. This has not been cleared or approved by the U.S. Food and Drug Administration. The FDA has determined that such clearance is not necessary. [facility] HCG Screen, Bloodon 01-04-20 HCG Screen, Blood Negative Normal NEG [facility] Comment on above: Result Comment: Spec imens with hCG levels near the threshold of the test (25 mIU/mL) may give a negative or indeterminate result. In such cases, another test should be performed with a new specimen in 48-72 hours. If early is suspected clinically in this setting, correlation with quantitative serum b-hCG level is suggested. [facility] has confirmed the use of plasma for this test. This has not been cleared or approved by the U.S. Food and Drug Administration. The FDA has determined that such clearance is not necessary. Performed By: #### H CG, LIP, MG, CDP, CMPX #### [place] [id number] [employer] Supervisor: Estevan Corcoran MD Lipaseon 01-03-2022 Lipase [Catalytic activity/Vol] 20 U/L Normal 13-60 [facility] Comment on above: Performed By: #### H CG, LIP, MG, CDP, CMPX #### [place] [id number] [employer] Supervisor: Estevan Corcoran MD Lipase [Catalytic activity/Vol] 20 U/L 13 - 60 U/L [facility] Magnesiumon 01-03-2022 Magnesium [Mass/Vol] 2.1 mg/dL Normal 1.6-2.6 [facility] Comment on above: Performed By: #### H CG, LIP, MG, CDP, CMPX #### [place] [id number] [employer] Supervisor: Estevan Corcoran MD Magnesium [Mass/Vol] 2.1 mg/dL 1.6 - 2 .6 mg/dL [facility] Microscopic Urinalysison Bacteria, UA MANY Abnormal None [facility] Epithelial Cells UA TOO NUMEROUS TO COUNT [facility] Interpretation and review of laboratory results Abnormal [facility] Other Observations UA Utilizing a urinal ysis as the only screening method to exclude a potential uropathogen can be unreliable in many patient populations. Rapid screening tests are less sensitive than culture and if UTI is a clinical possibility, culture should be considered despite a negative urinalysis. Abnormal NOT REQ. [facility] RBC, UA 2 TO 5 [facility] WBC, UA 2 TO 5 [facility] UA w/Reflex Cultureon 2021 Bilirubin, SemiQt,Ur Negative Normal NEG [facility] Comment on above: Performed By: #### U AX [place]O ####[place] [address] Lab Director: Estevan Corcoran MD Blood, Urine LARGE Abnormal NEG [facility] Comment on above: Performed By: #### U AX [place]O ####[place] [address] Lab Director: Estevan Corcoran MD Clarity (U) Cloudy Abnormal CLEAR [facility] Comment on above: Result Comment: FOUL ODOR Performed By: #### U AX, UMICAO ####[place] [address] Lab Director: Estevan Corcoran MD Color (U) Yellow Normal YEL [facility] Comment on above: Performed By: #### U AX [place]ICAO ####[place] [address] Lab Director: Estevan Corcoran MD Glucose Ql (U) Negative Normal NEG [facility] Comment on above: Performed By: #### U AX UMICAO ####[place] [address] Lab Director: Estevan Corcoran MD Ketones Ql (U) Negative Normal NEG [facility] Comment on above: Performed By: #### U AX, UMICAO ####[place] [address] Lab Director: Estevan Corcoran MD Leukocyte esterase Test strip Ql (U) Negative Normal NEG [facility] Comment on above: Performed By: #### U AX, UMICAO ####[place] [address] Lab Director: Estevan Corcoran MD Nitrite,Ur Negative Normal NEG [facility] Comment on above: Performed By: #### U AX, UMICAO ####[place] [address] Lab Director: Estevan Corcoran MD PH,Ur 6.0 Normal 5.0-8.0 [facility] Comment on above: Performed By: #### U AX, UMICAO ####[place] [address] Lab Director: Estevan Corcoran MD Protein Ql (U) Negative Normal NEG [facility] Comment on above: Performed By: #### U AX, UMICAO ####[place] [address] Lab Director: Estevan Corcoran MD Spec. Osteen,Ur 1.108 High 1.005-1.03 0 [facility] Comment on above: Result Comment: POST IV CONTRAST Performed By: #### U AX, UMICAO ####[place] [id number] lab Director: Estevan Corcoran MD Urobilinogen,Ur Normal Normal NORM [facility] Comment on above: Performed By: #### U GEORGES GILMAN ####[place] [address] lab Director: Estevan Corcoran MD Urinalysis with Reflex to Cu ltureon 01-03-2022 Bilirubin Urine Negative NEGATIVE [facility] Color, UA Yellow Yellow [facility] Glucose, Ur Negative NEGATIVE [facility] Interpretation and review of laboratory results Abnormal [facility] Ketones Ql (U) Negative NEGATIVE [facility] Leukocyte esterase Test strip Ql (U) Negative NEGATIVE [facility] Nitrite, Urine Negative NEGATIVE [facility] pH, UA 6.0 5 - 8 [facility] Protein, UA Negative NEGATIVE [facility] Specific Osteen, UA 1.108 High 1.005 - 1.03 [facility] Comment on above: POST IV CONTRAST Turbidity UA Cloudy Abnormal Clear [facility] Comment on above: FOUL ODOR Urine Hgb LARGE Abnormal NEGATIVE [facility] Urobilinogen, Urine Normal Normal [facility] Urinalysis,Microon 2 Bacteria MANY Abnormal NONE [facility] Comment on above: Performed By: #### GEORGES MEDINA ####[place] [address] lab Director: Estevan Corcoran MD Epithelial cells LM Ql (Urine sed) TOO NUMEROUS TO COUNT Normal 0-5 [facility] Comment on above: Performed By: #### GEORGES MEDINA ####[place] [id number] lab Director: Estevan Corcoran MD Other Observations Utilizing a urinalys is as the only screening method to exclude a potential Abnormal NREQ [facility] Comment on above: Result Comment: urop athogen can be unreliable in many patient populations. Rapid screening tests are less sensitive than culture and if UTI is a clinical possibility, culture should be considered despite a negative urinalysis. Performed By: #### U AX, UMICAO ####[id number] Lab Director: Estevan Corcoran MD Urine RBC's 2 TO 5 Normal 0-2 [facility] Comment on above: Performed By: #### U AX, UMICAO ####[address] [address] lab Director: Estevan Corcoran MD Urine WBC's 2 TO 5 Normal 0-5 [facility] Comment on above: Performed By: #### U AX, UMICAO ####[address] [address] lab Director: Estevan Crocoran MD CT LUMBAR SPINE WO CONTRASTo n [...] leg pain. Follow-up MRI may be helpful. [facility] RIS CONSOLIDATED EXAMINATION: CT OF THE [...] SOFT TISSUES/RETROPERITONEUM: No paraspinal mass is seen. [facility] Boyd Beatty MD - 08/19/2021 [...] leg pain. Follow-up MRI may be helpful. [employer] Work Phone: Radiology Study observation (narrative) [employer] Work Phone: CT LUMBAR SPINE WO CONTRASTO rdered By: Boyd Beatty on 08-19-2021 [employer] Work Phone: Vital Signs Date Time Vital Sign Value Performing Clinician Elena melton 06-12-2023 10:05-0400 Body height 165.1 cm Rohit Metzger MD Work Phone: [employer] 06-12-2023 10:05-0400 Body mass index (BMI) [Ratio] 38.94 kg/m2 Rohit Metzger MD Work Phone: [employer] 06-12-2023 10:05-0400 Body weight 106.14 kg [facility] 05-16-2023 13:48-0500 Body height 165.1 cm Rohit [facility]zger MD [facility] 05-16-2023 13:48-0500 Body mass index (BMI) [Ratio] 38.94 kg/m2 Rohit Metzger MD Work Phone: [employer] 05-16-2023 13:48-0500 Body weight 106.14 kg Rohit Metzger MD [facility] 01-02-2023 10:00-0400 Body height 162.56 cm Johnathon Winter Other [employer] Other 01-02-2023 10:00-0400 Body mass index (BMI) [Ratio] 42.91 kg/m2 Johnathon Winter Other [employer] Other 01-02-2023 10:00-0400 Body weight 113.4 kg Johnathon Winter Other [employer] Other 01-02-2023 10:00-0400 Diastolic blood pressure 82 mm[Hg] Johnathon Winter Other [employer] Other 01-02-2023 10:00-0400 Systolic blood pressure 126 mm[Hg] Johnathon Winter Other [employer] Other 2022 11:00-0400 Body height 162.56 cm Johnathon Winter Other [employer] Other 2022 11:00-0400 Body mass index (BMI) [Ratio] 44.56 kg/m2 Johnathon Winter Other [employer] Other 2022 11:00-0400 Body weight 117.75 kg Johnathon Winter Other [employer] Other 2022 11:00-0400 Diastolic blood pressure 101 mm[Hg] Jhonathon Winter Other [employer] Other 2022 11:00-0400 SaO2% (BldA) [Mass fraction] 100 % Johnathon Winter Other [employer] Other 2022 11:00-0400 Systolic blood pressure 138 mm[Hg] Johnathon Winter Other [employer] Other 10-11-2022 18:45-0400 Body height 165.1 cm Roxie Garcia MD Work Phone: [employer] 10-11-2022 18:45-0400 Body mass index (BMI) [Ratio] 43.93 kg/m2 Roxie Garcia MD Work Phone: [facility] [employer] 10-11-2022 18:45-0400 Body temperature 99 [degF] Roxie Garcia MD Work Phone: [facility] [employer] 10-11-2022 18:45-0400 Body weight 119.75 kg Roxie Garcia MD Work Phone: [facility] [employer] 10-11-2022 18:45-0400 Diastolic blood pressure 108 mm[Hg] Roxie Garcia MD Work Phone: [facility] [employer] 10-11-2022 18:45-0400 Heart rate 87 /min Roxie Garcia MD Work Phone: [facility] [employer] 10-11-2022 18:45-0400 Respiratory rate 16 /min Roxie Garcia MD Work Phone: [facility] [employer] 10-11-2022 18:45-0400 SaO2% (BldA) [Mass fraction] 98 % Roxie Garcia MD Work Phone: [employer] 10-11-2022 18:45-0400 Systolic blood pressure 160 mm[Hg] Roxie Garcia MD Work Phone: [employer] 01-03-2022 13:54-0400 Diastolic blood pressure 95 mm[Hg] Teo Thomas DO [employer] 01-03-2022 13:54-0400 Heart rate 61 /min Teo Agueroan DO [employer] 01-03-2022 13:54-0400 SaO2% (BldA) [Mass fraction] 100 % Teo Thomas DO [employer] 01-03-2022 13:54-0400 Systolic blood pressure 142 mm[Hg] Teo Thomas DO [employer] 01-03-2022 11:46-0400 Body height 165.1 cm Teo Agueroan DO [facility] 01-03-2022 11:46-0400 Body mass index (BMI) [Ratio] 44.1 kg/m2 Teo Froylanfman DO [facility] 01-03-2022 11:46-0400 Body temperature 97.7 [degF] Teo Agueroan DO [facility] 01-03-2022 11:46-0400 Body weight 120.2 kg Teo Thomas DO [facility] 01-03-2022 11:46-0400 Respiratory rate 16 /min Teo Agueroan DO [facility] 08-19-2021 18:03-0400 Diastolic blood pressure 98 mm[Hg] Radha Sanders MD Work Phone: [facility] [email or web address] 08-19-2021 18:03-0400 Heart rate 92 /min Radha Sanders MD Work Phone: [facility] [email or web address] 08-19-2021 18:03-0400 Respiratory rate 16 /min Radha Sanders MD Work Phone: [facility] [email or web address] 08-19-2021 18:03-0400 SaO2% (BldA) [Mass fraction] 96 % Radha Sanders MD Work Phone: [facility] [email or web address] 08-19-2021 18:03-0400 Systolic blood pressure 145 mm[Hg] Radha Sanders MD Work Phone: [facility] [email or web address] 08-19-2021 16:28-0400 Body height 165.1 cm Radha Sanders MD Work Phone: [facility] [email or web address] 08-19-2021 16:28-0400 Body mass index (BMI) [Ratio] 45.76 kg/m2 Radha Sanders MD Work Phone: [facility] [email or web address] 08-19-2021 16:28-0400 Body temperature 98.6 [degF] Radha Sanders MD Work Phone: [facility] [email or web address] 08-19-2021 16:28-0400 Body weight 124.74 kg Radha Sanders MD Work Phone: [facility] Encounters Encounter Date Encounter Type Care Provider Facility Start: 12-06-2023 End: 12-06-2023 Departed Referred DO Sanjeev Jessica Work Phone: [facility] [place] Work Phone: Start: 12-06-2023 End: 12-06-2023 ambulatory SANJEEV JESSICA Not Available Start: 11-29-2023 Non-patient / Non-visit DO Cor ey Jessica Work Phone: [facility] Work Phone: Start: 11-29-2023 End: 11-29-2023 ambulatory SANJEEV JESSICA Not Available Start: 11-22-2023 End: 11-22-2023 ambulatory [facility] Start: 11-20-2023 End: 11-20-2023 ambulatory Christiano Rivera MD Facility:[facility] Start: 11-13-2023 End: 11-13-2023 ambulatory Christiano Rivera MD Facility:[facility] Start: 10-25-2023 Non-patient / Non-visit DO Cor ey Jessica Work Phone: [facility] Work Phone: Start: 08-23-2023 End: 08-23-2023 ambulatory KELI Resendez Facility:[facility] Start: 08-02-2023 End: 08-02-2023 ambulatory ROBERT URRUTIA Not Available Start: 07-31-2023 End: 07-31-2023 ambulatory Bhavin Montgomery MD Facility:[facility] Start: 07-19-2023 End: 07-19-2023 ambulatory SANJEEV JESSICA Not Available Start: 07-17-2023 End: 07-17-2023 ambulatory Bhavin Montgomery MD Facility:[facility] Start: 06-26-2023 End: 06-26-2023 ambulatory Bhavin Montgomery MD Facility:[facility] Start: 06-15-2023 End: 06-15-2023 ambulatory SANJEEV JESSICA Not Available Start: 06-12-2023 End: 06-12-2023 ambulatory [facility] Comment on above: Lumbar radiculopathy , chronic (Primary Dx); Herniated lumbar intervertebral disc Start: 06-12-2023 End: 06-12-2023 Office outpatient visit 10 minutes Rohit Smith MD Work Phone: [facility] Comment on above: 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) Start: 06-06-2023 ambulatory RENY NO [facility] Start: 05-24-2023 Orders Only Reny barlow CARD SERVICES SPECIALIST-[employer] PROGRAMMER ANALYST [facility] Comment on above: Herniated lumbar int ervertebral disc (Primary Dx); Lumbar radiculopathy, chronic Start: 05-23-2023 End: 05-23-2023 ambulatory Tee Peterson [facility] Work Phone: Start: 05-23-2023 End: 05-23-2023 Departed Referred MD Tee Peterson Work Phone: [facility] Start: 05-19-2023 End: 05-19-2023 ambulatory RENY [facility] Start: 05-16-2023 End: 05-16-2023 ambulatory [facility] Start: 05-16-2023 End: 05-16-2023 Office outpatient new 30 minutes Rohit Smith MD Work Phone: [facility] Comment on above: 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); Finger injury, right, initial encounter Start: 05-15-2023 Orders Only Reny barlow CARD SERVICES SPECIALIST-[employer] PROGRAMMER ANALYST Work Phone: [facility] Comment on above: Herniated lumbar int ervertebral disc (Primary Dx) Start: 05-10-2023 End: 05-10-2023 ambulatory Johnathon Winter Other [employer] Other Start: 05-10-2023 Encounter by [employer] Johnathon Winter [facility] Start: 05-10-2023 Non-patient / Non-visit MD Jones Work Phone: [facility] [employer] Work Phone: Start: 05-04-2023 End: 05-04-2023 Office outpatient visit 10 minutes Oswaldo Dee ENTOMOLOGY TEACHER Work Phone: 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); Pain in finger of right hand Start: 05-04-2023 End: 05-04-2023 ambulatory RENY NO [facility] Start: 05-01-2023 End: 05-01-2023 ambulatory SANJEEV العليZIO Not Available Start: 04-19-2023 End: 04-19-2023 ambulatory Scottie Lyn Other [employer] Other Start: 04-19-2023 Telephone encounter Scottie Lyn [facility] Start: 04-14-2023 End: 04-14-2023 Orders Only Serina Rodriguez [facility] Comment on above: Back pain, unspecifi ed back location, unspecified back pain laterality, unspecified chronicity (Primary Dx) Start: 04-12-2023 End: 04-12-2023 ambulatory Johnathon Winter Other [employer] Other Start: 04-12-2023 Telephone encounter Johnathon Winter [facility] Start: 04-11-2023 End: 04-11-2023 ambulatory Johnathon Winter Other [employer] Other Start: 04-11-2023 Telephone encounter Johnathon Winter [facility] Start: 04-10-2023 End: 04-10-2023 ambulatory Johnathon Winter Other [employer] Other Start: 04-10-2023 Encounter by compute r link Johnathon Winter [facility] Start: 03-16-2023 End: 03-16-2023 ambulatory OSWALDO DEE Not Available Start: 03-09-2023 End: 03-09-2023 ambulatory Johnathon Jay Maggy Facility:[facility] Start: 01-30-2023 End: 01-30-2023 ambulatory Johnathon Winter Other [employer] Other Start: 01-30-2023 Telephone encounter Johnathon Winter [facility] Start: 01-02-2023 End: 01-02-2023 ambulatory Johnathon Winter Other [employer] Other Start: 01-02-2023 Office outpatient vi sit 15 minutes Johnathon Winter [facility] Start: 12-09-2022 End: 12-09-2022 ambulatory Johnathon Winter Other [employer] Other Start: 12-09-2022 Telephone encounter Johnathon Winter [facility] Start: 12-08-2022 End: 12-08-2022 ambulatory Johnathon Winter Other [employer] Other Start: 12-08-2022 Telephone encounter Johnathon Winter [facility] Start: 2022 End: 2022 ambulatory Johnathon Winter Other [employer] Other Start: 2022 Office outpatient ne w 30 minutes Johnathon Winter [facility] Start: 10-11-2022 End: 10-11-2022 Emergency department patient visit JOHNATHON WINTER [facility] Start: 10-11-2022 End: 10-11-2022 Emergency department patient visit Roxie Garcia MD Work Phone: [facility] Comment on above: Sprain of right ankl e, unspecified ligament, initial encounter (Primary Dx) Start: 07-11-2022 End: 07-11-[address] SANJEEV LOPEZ . Facility:[facility] Start: 04-29-2022 End: 04-30-[address] SANJEEV LOPEZ . Facility:[facility] Start: 02-16-2022 End: 02-16-2022 Emergency department patient visit JOHNATHON WINTER [facility] Start: 01-03-2022 End: 01-03-2022 Emergency department patient visit JOHNATHON WINTER [facility] Start: 01-03-2022 End: 01-03-2022 Emergency department patient visit Teo Thomas DO [facility] Comment on above: Gastroenteritis (Neetu emil Dx) Start: 08-19-2021 End: 08-19-2021 Emergency department patient visit Radha Sanders MD Work Phone: [facility] Comment on above: Herniated lumbar int ervertebral disc (Primary Dx) Procedures Date Procedure Procedure Detail Performing Clinician Start: 06-12-2023 Follow-up visit Follow-up ROHIT CAMEJO V Start: 10-11-2022 Radex ankle complete minimum 3 views Bailee Lew CARD SERVICES SPECIALIST - AS400 PROGRAMMER ANALYST Work Phone: Start: 01-03-2022 Urinalysis microscop ic only Zachariah Foster CARD SERVICES SPECIALIST - ENTOMOLOGY TEACHER Work Phone: Start: 01-03-2022 Urnls dip stick/tabl et rgnt auto w/o microscopy Zachariah Foster CARD SERVICES SPECIALIST - ENTOMOLOGY TEACHER Work Phone: Start: 01-03-2022 Ct abdomen & pelvis w/contrast material Zachariah Foster CARD SERVICES SPECIALIST - ENTOMOLOGY TEACHER Work Phone: Start: 01-03-2022 Assay of lipase Zachariah Foster CARD SERVICES SPECIALIST - ENTOMOLOGY TEACHER Work Phone: Start: 12-01-2021 Adult depression screening assessment Serina GARCIAMina Start: 08-19-2021 Ct lumbar spine w/o contrast material Radha Sanders MD Work Phone: Plan of Treatment Date Care Activity Detail Author Start: 06-11-2024 Adult BMI Screening Adult BMI Screen ing [facility] Start: 06-11-2024 Tobacco Screening Tobacco Screening [facility] Start: 05-16-2024 Adult BMI Screening Adult BMI Screen ing [facility] Start: 05-16-2024 Tobacco Screening Tobacco Screening [facility] Start: 05-08-2024 Adult BMI Screening Adult BMI Screen ing [facility] Start: 05-08-2024 Tobacco Screening Tobacco Screening [facility] Start: 04-14-2024 Adult BMI Screening Adult BMI Screen ing [facility] Start: 04-14-2024 Tobacco Screening Tobacco Screening [facility] Start: 07-19-2023 End: 07-19-2023 Patient encounter procedure 07/19/2023 1:45 PM EDT Office Visit [facility] [address] [place] [phone] Vishal Martin DO [address] [place] [address] [facility] Start: 07-17-2023 End: 07-17-2023 Patient encounter procedure 07/17/2023 10:00 AM EDT Office Visit [facility] [address] [place] [phone] Sanjeev Lopez DO [address] [place] [address] [facility] Start: 06-12-2023 End: 06-12-2023 Patient encounter procedure 06/12/2023 10:05 AM EDT Office Visit [facility] [address] [place] [address] Rohit Smith MD [address] [place] [address] [facility] Start: 05-19-2023 End: 05-19-2023 Patient encounter procedure 05/19/2023 10:15 AM EST Appointment [facility] [address] [place] [phone] [facility] Start: 05-16-2023 End: 05-16-2023 Patient encounter procedure 05/16/2023 1:45 PM EST Office Visit [facility] [address] [facility] [address] [place] [address] Rohit Smith MD [address] [place] [address] [facility] Start: 05-08-2023 End: 05-08-2023 Patient encounter procedure 05/08/2023 1:30 PM EST Office Visit [facility] [address] [place] [address] Reny No, CARD SERVICES SPECIALIST-AS400 PROGRAMMER ANALYST [address] [facility] [address] [place] [address] [facility] Start: 04-14-2023 End: 04-14-2024 XR Lumbar spine Views W flexion and W extension X-ray spine lumbar ap, lateral, flexion and extension only Imaging Routine Back pain, unspecified back location, unspecified back pain laterality, unspecified chronicity Expected: 04/14/2023, Expires: 04/14/2024 [facility] Work Phone: Comment on above: Expected: 04/14/2023 , Expires: 04/14/2024 Start: 12-02-2022 Influenza vaccination Influenza Vacc ine [facility] [email or web address] [facility] Start: 12-01-2022 Depression Screening Depression Scre ening [facility] [email or web address] [facility] Start: 11-01-2022 Influenza vaccination Flu vaccine (# 1) [employer] Start: 09-03-2022 Adult BMI Follow Up Plan Adult BMI Follow Up Plan [facility] Start: 12-02-2021 Influenza vaccination Flu vacc ine (Season Ended) [employer] Start: 11-01-2021 Influenza vaccination Flu vaccine (# 1) [employer] Start: 2017 Diabetes screen Diabetes screen [facility] Start: 2012 Screening for malignant neoplasm of cervix [facility] [place] [facility] Start: 12-01-2003 Screening for malignant neoplasm of cervix Pap smear [facility] [place] [facility] Start: 2001 DTaP,Tdap and Td Vaccines (1 - Tdap) DTaP,Tdap and Td Vaccines (1 - Tdap) [facility] Start: 2001 DTaP/Tdap/Td vaccine (1 - Tdap) DTaP/Tdap/Td vaccine (1 - Tdap) [facility] [place] [facility] Start: 2000 Hepatitis C screening Hepatitis C sc reen [facility] Start: 1994 Depression Screen Depression Screen [facility] Start: 12-01-1987 COVID-19 Vaccine (1) COVID-19 Vaccin e (1) [facility] [place] [facility] Start: 12-01-1983 Varicella vaccine (1 of 2 - 2-dose childhood series) Varicella vaccine (1 of 2 - 2-dose childhood series) [facility] Start: 06-01-1983 COVID-19 Vaccine (#1) COVID-19 Vacci ne (#1) [facility] Payers Date Payer Category Payer Self-pay 2022 Unknown [id number] 2022 Unknown [id number] 2020 Unknown [id number] 1.2.8 [id number] 1982 Unknown [id number] 2.16.84 0.1.959653.3.579.2.593 1982 Unknown [id number] 2.16.84 0.1.540829.3.579.2.593 1982 Unknown [id number] 2.16. 840.1.557419.3.579.2.175 1982 Unknown [id number] 2.16. 840.1.509259.3.579.2.175 1982 Unknown [id number] 2.16. 840.1.435510.3.579.2.175 1982 Unknown [id number] 2.16.8 40.1.916880.3.579.2.1286 1982 Unknown [id number] 2.16.8 40.1.629139.3.579.2.1286 1982 Unknown [id number] 2.16.84 0.1.799494.3.579.2.1286 1982 Unknown [id number] 2.16.8 40.1.350829.3.579.2.718 1982 Unknown [id number] 2.16.8 40.1.617918.3.579.2.8 1982 Unknown [id number] 2.16.8 40.1.346279.3.579.2.1286 1982 Unknown [id number] 2.16.8 40.1.724244.3.579.2.1285 1982 Unknown [id number] 2.16.8 40.1.731679.3.579.2.1286 1982 Unknown [id number] 2.16.8 40.1.423014.3.579.2.6 1982 Unknown [id number] 2.16. 840.1.193097.3.579.2.196 1982 Unknown [id number] 2.16 840.1.803135.3.579.2.196 1982 Unknown [id number] 2.16. 840.1.335948.3.579.2. 1982 Unknown [id number] 2.16. 840.1.409778.3.579.2.196 1982 Unknown [id number] 2.16. 840.1.882175.3.579.2. 1982 Unknown [id number] 2.16.84 0.1.211232.3.579.2.1259 1982 Unknown [id number] 2.16.84 0.1.429961.3.579.2.1259 1982 Unknown [id number] 2.16.84 0.1.107218.3.579.2.9 1982 Unknown [id number] 2.16.84 0.1.425629.3.579.2.1259 1982 Unknown [id number] 2.16.84 0.1.828745.3.579.2.9 1982 Unknown [id number] 2.16.84 0.1.368099.3.579.2.1259 1982 Unknown [id number] 2.16.84 0.1.067412.3.579.2.9 1982 Unknown [id number] 2.16.840 .1.937675.3.579.2.1259 1959 Unknown [id number] Unknown [id number] 2.16.8 40.1.434360.3.579.2.531 Social History Date Type Detail Facility Start: 06-15-2015 End: 03-31-2022 Tobacco smoking status [facility] Never smoked tobacco [employer] Start: 06-15-2015 End: 03-31-2022 Tobacco use and exposure Smokeless tobacco non-user [employer] Phone: Start: 08-19-2021 End: 06-12-2023 Alcohol intake Current non-drinker of alcohol (finding) [employer] Phone: Start: 05-14-2020 End: 08-19-2021 Alcohol intake [facility] Start: 06-15-2015 History SDOH Alcohol Comment rarely [employer] Phone: Start: 1980 Sex Assigned At Not on file [employer] Phone: Start: 08-09-2021 End: 01-03-2022 Exposure to SARS-CoV-2 (event) Not sure [employer] Phone: History of tobacco use Passive smoker [facility] [employer] Phone: Start: 05-14-2020 End: 04-14-2023 Sex Assigned At [facility] Adolescent depressio n screening assessment 0 [facility] Start: 05-04-2023 Alcohol intake Ex-drinker (finding) [facility] Start: 10-09-2022 Alcohol Comment Alcohol: 1 or 2 drinks on typical day/monthly or less. Caffeine: 1-2 cups/day tea [facility] Start: 1980 Sex Assigned At Female [facility] Start: 09-21-2022 Gender identity Identifies as female gender (finding) [facility] Start: 09-21-2022 Sexual orientation Heterosexual (finding) [facility] Clinical Notes 08-19-2021 to 08-23-2023 Rohit Metzger [...] wine (148 mL (more content not included)... [facility] 06-12-2023 History of Present illness [...] take another few months to subside. Recommended jdzf-gzb-hsxoihm pain relievers as needed. She is content [...] of the aforementioned history prepared by the [place] practice provider, and I personally performed the [...] any severe symptoms. documented in this encounter [facility] 05-16-2023 History of Present illness Narrative [facility] Chief Complaint: [...] a snap. She initially followed up with [facility] and was diagnosed with right [...] External notes reviewed: I reviewed notes from [facility] orthopaedics. Review of test/study reports: I reviewed an x-ray obtained of the right ring finger. There were no acute osseous abnormality such as fracture dislocation. My personal interpretation of tests: I personally viewed and interpreted X-rays from [facility] as above. Xrays done in office today: None. Assessment: 1. Mallet [facility] [place], [place] 2. Finger injury, right, initial encounter - [facility] - [place], [place] Plan: I discussed treatment options with [...] with her flexion. documented in this encounter [employer] 05-10-2023 Evaluation note Encounter Date Diagnosis Assessment Notes May, Adult ADHD (attention deficit hyperactivity disorder) (ICD-10 - F90.9) [employer] Other 02-01-2024 History of Present illness Narrative* [...] finger for about 2 weeks. Went to [facility] due to having numbness in finger and unable to straighten it. Had XR at . On 03/13, pt went to [facility] and had another XR. Unable to get into hand specialist at [facility] until May 16. Continues to [...] crooked. PT is RT handed Prior [place]: [facility] 03/09/23, XR, Splint, [facility] UC, XR 03/13/23, Ice, Heat, IBU, [facility] ALLERGIES: No Known Allergies HOME MEDICATIONS: Current Outpatient Medications Medication Instructions amphetamine-dextroamphetamine (Adderall) 20 MG tablet 1 TABLET ORALLY MID DAY 30 DAYS cyclobenzaprine (Flexeril) 10 MG tablet PLEASE SEE ATTACHED FOR DETAILED DIRECTIONS fluconazole (DIFLUCAN) 100 mg, Oral, Daily nystatin (Mycostatin) 280094 UNIT/GM powder APPLY TO AFFECTED AREA TOPICALLY [...] normal Pronation: normal Supination: normal Muscle Strength Egg Processing Supervisor: 3/5 Other Erythema: absent Pulse: present Comments: [...] develop for requiring urgent evaluation. Oswaldo Dee CARD SERVICES SPECIALIST-AS400 PROGRAMMER ANALYST documented in [facility] encounter[facility] [id number] Evaluation note* Encounter Date Diagnosis Assessment Notes Treatment Notes Treatment Clinical Notes Apr, Adult ADHD (attentio n deficit hyperactivity disorder) (ICD-10 - F90.9) [employer] Other 01-10-2024 Evaluation note* Encounter Date Diagnosis Assessment Notes Treatment Notes Treatment Clinical Notes Apr, Adult ADHD (attentio n deficit hyperactivity disorder) (ICD-10 - F90.9) [employer] Other 01-09-2024 Evaluation note* Encounter Date Diagnosis Assessment Notes Treatment Notes Treatment Clinical Notes Apr, Adult ADHD (attentio n deficit hyperactivity disorder) (ICD-10 - F90.9) [employer] Other 01-08-2024 Evaluation note* Encounter Date Diagnosis Assessment Notes Treatment Notes Treatment Clinical Notes Apr, Adult ADHD (attentio n deficit hyperactivity disorder) (ICD-10 - F90.9) [employer] Other 12-07-2023 NotePatient Education Materials Follows: Mallet [...] or lying down. General instructions ? Take aqcw-hfg-jzzkuda and prescription medicines only as told by [...] by your health care p (more contentnot included)...[id number] Evaluation note * Encounter Date Diagnosis Assessment Notes Treatment Notes Treatment Clinical Notes Jan, Adult ADHD (attentio n deficit hyperactivity disorder) (ICD-10 - F90.9) [employer] Other [id number] Evaluation note* Encounter Date Diagnosis Assessment Notes [...] in 3 months or sooner if needed. [employer] Other 09-08-2023 Evaluation note* Encounter Date Diagnosis Assessment Notes Treatment Notes Treatment Clinical Notes Dec, Adult ADHD (attentio n deficit hyperactivity disorder) (ICD-10 - F90.9) [employer] Other 09-07-2023 Evaluation note* Encounter Date Diagnosis Assessment Notes Treatment Notes Treatment Clinical Notes Dec, Adult ADHD (attentio n deficit hyperactivity disorder) (ICD-10 - F90.9) [employer] Other 08-30-2023 Evaluation note* Encounter Date Diagnosis [...] Cutaneous candidiasis (ICD-10 - B37.2) Refilled diflucan. [employer] Other 07-11-2023 Hospital Discharge instructions* Discharge Instructions* Bailee Lew APRN - AS400 PROGRAMMER ANALYST - 10/11/2022 8:08 PM EDT [facility] a [facility] Use an ice pack or bag [...] through Care Everywhere. * RICE: General Info (Finnish) * Ankle Sprain (Finnish) documented in this encounterBON CHRIS [facility] [id number] Hospital Discharge instructions* Instructions* Radha Sanders MD - 08/19/2021 May use ice or heat, whichever feels better. May use [place] for pain. Prednisone as directed. Follow-up with [...] a follow up appointment THANK YOU!!! From [facility] and [facility] On behalf of the Emergency Department staff at [facility], I would like to thank you for giving us the opportunity to address your health care needs and concerns. We hope that during your visit, our service was delivered in a professional and caring manner. Please keep [facility] in mind as we walk with you [...] how we did during your visit at [email or web address] and let us know about your experience * Attachments The following attachments cannot be sent through Care Everywhere. * Herniated Disc (Finnish) [facility] [employer] Phone: evaluation note* Diagnosis Herniated lumbar intervertebral disc- Primary Displacement of lumbar intervertebral disc without myelopathy documented in this encounter [facility] [employer] Phone: evaluation note* Diagnosis Gastroenteritis- Primary Other and unspecified noninfectious gastroenteritis and colitis documented in this encounter [facility] [employer] Phone: evalohmsvj note* Diagnosis Sprain of right ankle, unspecified ligament, initial encounter- Primary documented in this encounter [facility] [employer] note* Diagnosis Back pain, unspecified back location, unspecified back pain laterality, unspecified chronicity- Primary documented in this encounter [facility] [email or web address] SystemEvaluation noteNo Cardio controlSims [employer] Other Evaluation note* Diagnosis 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 Pain in finger of right hand Pain in soft tissues of limb [facility] Diagnosis Herniated lumbar intervertebral disc- Primary Displacement of lumbar intervertebral disc without myelopathy documented in this encounter [facility] SystemEvaluation note* Diagnosis 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 Finger injury, right, initial encounter documented in this encounter [facility] [email or web address] SystemEvaluation note* Diagnosis Herniated lumbar intervertebral disc- Primary Displacement of lumbar intervertebral disc without myelopathy Lumbar radiculopathy, chronic documented in this encounter [facility] [email or web address] SystemEvaluation noteNo assessment information [facility] Work Phone: Evaluation note* Diagnosis Lumbar radiculopathy, chronic- Primary Herniated lumbar intervertebral disc Displacement of lumbar intervertebral disc without myelopathy [facility]* Diagnosis 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 documented in this encounter [facility] SystemHistory general Narrative - Reported* Type Description Date Medical History PCOS/insulin resistant Medical History PCOS (polycystic ovarian syndrom e) Medical History Frequent headaches Medical History Gestational diabetes Medical History Prediabetes Surgical History cholecystectomy 2004 Surgical History appendectomy 2006 Surgical History Hospitalization History see surgical hx [facility] [employer] Other Hospital Discharge instructions* Attachments The following attachments cannot be sent through Care Everywhere. * Gastroenteritis (Finnish) documented in this encounterBON [employer] Work Phone: InstructionsNot on filedocumented in this encounter [facility] SystemInstructionsNot on filedocumented in this encounter [facility] SystemInstructionsNot on filedocumented in this encounter [facility] SystemInstructionsNot on filedocumented in this encounter [facility] SystemReason for referral (narrative)* Consultation (Routine) - Pending Review Specialty Diagnoses / Procedures Referred By Contact Referred To Contact Physical Medicine and Rehabilitation Diagnoses Herniated lumbar intervertebral disc Lumbar radiculopathy, chronic Reny No APRN-AS400 PROGRAMMER ANALYST [address] [facility] [address] [place] [address] Vishal Martin DO [address] [facility] [address] [place] [address] Referral ID Status Reason Start Date Expiration Date Visits Requested Visits Authorized [id number] Pending Review Specialty Services Required 05/24/2023 05/23/2024 1 1 [facility] (narrative)* Consultation (Routine) - Pending Review Specialty Diagnoses / Procedures Referred By Angela hart Referred To Contact Pain Medicine Diagnoses Lumbar radiculopathy, chronic Herniated lumbar intervertebral disc Reny No APRN-AS400 PROGRAMMER ANALYST [address] [place] [address] Davis Silva MD [address] [place] [address] Referral ID Status Reason Start Date Expiration Date V isits Requested Visits Authorized [id number] Pending Review 06/12/2023 06/11/2024 1 1 [facility] Advance Directives No Advanced Directives Records FoundDocuments on File Type Date Recorded 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 Ordered Prescriptions (unrec [...] would not scan at bedside. Verified with [facility] prior to administration.) Scheduled Medication Order [...] Care Teams (unrecognized sec tion and content) Soda Column Operator Relationship Specialty Start Date End Date Johnathon Winter MD PCP - General Family Medicine 03/08/16 Soda Column Operator Relationship Specialty Start Date End Date Johnathon Winter MD PCP - General Family Medicine 03/08/16 Soda Column Operator Relationship Specialty Start Date End Date Johnathon Winter MD PCP - General Family Medicine 03/08/16 Soda Column Operator Relationship Specialty Start Date End Date Johnathon Winter MD [address] [place] [id number] PCP - General 03/13/23 Soda Column Operator Relationship Specialty Start Date End Date Johnathon Winter MD [address] [place] [phone] PCP - General Family Medicine 12/12/22 Soda Column Operator Relationship Specialty Start Date End Date Johnathon Winter MD [address] [place] [id number] PCP - General 03/13/23 Soda Column Operator Relationship Specialty Start Date End Date Johnathon Winter MD [address] [place] [id number] PCP - General 03/13/23 Soda Column Operator Relationship Specialty Start Date End Date Johnathon Winter MD [address] [place], [place] [phone] PCP - General 03/13/23 Team Status: Active Member Role Status Dates Johnathon Winter MD Primary Care Provide r, Attending Provider Active Start: May 10, 2023 Team Status: Inactive Member Role Status Dates Tee Peterson MD Attending Provider Active Start: May 23, 2023 End: May 23, 2023 Soda Column Operator Relationship Specialty Start Date End Date Johnathon Winter MD [address] [place] [phone] PCP - General 03/13/23 Team Status: Active [...] and content) DATE CREATED AUTHOR [facility]/17/2022 [facility] DATE CREATED AUTHOR AUTHOR'S ORGANIZ ATION 10/12/2022 [facility] DATE CREATED AUTHOR AUTHOR'S ORGANIZ ATION 06/12/2023 [facility] DATE CREATED AUTHOR AUTHOR'S ORGANIZ ATION 09/02/2023 [facility] DATE CREATED AUTHOR AUTHOR'S ORGANIZ ATION 11/23/2023 [facility] DATE CREATED AUTHOR AUTHOR'S ORGANIZ ATION 12/01/2023 [facility] DATE CREATED AUTHOR AUTHOR'S ORGANIZ ATION 12/07/2023 [facility] dical Specialists [facility] DATE CREATED AUTHOR AUTHOR'S ORGANIZ ATION 12/14/2023 [facility] ysician Group Goals (unrecognized section and [...] BE BASED ON THE PRIMARY CLINICAL RECORDS. [employer] provides no warranty or guarantee of the accuracy or completeness of information in this document.
[2023-12-22 06:59] LABS: Basophils Absolute Auto 0.1 10^3/uL (0.0-0.1); Basophils Percent Auto 0.8 % (0.2-2.0); Eosinophils Absolute Auto 0.1 10^3/uL (0.0-0.7); Eosinophils Percent Auto 1.5 % (0.9-7.0); Hematocrit 41.5 % (36.0-48.0); Hemoglobin 12.9 g/dL (12.0-16.0); Immature Granulocytes Abs Auto 0.02 10^3/uL (0.00-0.03); Immature Granulocytes Pct Auto 0.3 % (0.0-0.5); Lymphocytes Absolute Auto 2.5 10^3/uL (1.2-3.8); Mean Corpuscular HGB Conc 31.1 g/dL (29.9-35.2); Mean Corpuscular Hemoglobin 27.4 pg (26.7-34.0); Mean Corpuscular Volume 88.3 fL (81.0-99.0); Mean Platelet Volume 8.7 fL (9.5-13.5); Monocytes Absolute Auto 0.4 10^3/uL (0.3-0.8); Monocytes Percent Auto 5.9 % (1.7-12.0); Neutrophils Absolute Auto 4.2 10^3/uL (1.4-6.5); Neutrophils Percent Auto 57.5 % (43.0-75.0); Platelet Count 279 10^3/uL (150-450); Red Cell Distribution Width 13.7 % (11.0-15.0); White Blood Count 7.3 10^3/uL (4.0-11.0)
[2023-12-22] MEDS: LACTATED RINGER'S SOLUTION 1,000 ML 50 ML IV (07:18)
[2023-12-22 07:26] LABS: HCG Quantitative <1 mIU/mL
--- NOTE | 2023-12-22 08:06 | PM.ONB ---
Brief Operative Note Date of procedure: 12/22/23 Pre-op diagnosis general: aub Post-op diagnosis: same as pre-op Procedure: NAME OF PROCEDURE: [ ] Mariel endometrial ablation with hysteroscopy. PROCEDURE: The patient was taken back to the OR where she was prepped and draped in the normal sterile fashion after being placed in the dorsal lithotomy position, after being placed under general anesthesia without difficulty.? A weighted speculum was placed into the vagina. The anterior lip was grasped with a single tooth tenaculum. The patient was then sounded to approximated 8cm. The patient?s cervix was gently dilated using hegardilators. The hysteroscope was passed through the cervix into the uterus where both ostia were seen. No gross evidence of polyps, fibroids or malignancy. The cervical length was noted to be 4 cm. The total cavity length is 4cm.? The Mariel ablation apparatus was set to approximately 4cm in length. This was placed through the cervix and into the uterus. After the seal was tested, at that time the total ablation of 120 seconds was performed with the Mariel withoutdifficulty. All instruments were removed from the vagina. Excellent hemostasis noted.? Sponge and lap count correct times 2.? Patient taken to recovery in stable condition. Anesthesia: MAC Surgeon: Sanjeev Lopez Estimated blood loss (mL): 5 Pathology: none sent Condition: stable Disposition: PACU Urinary Catheter Management Urinary Catheter Management Urethral: Cath placed during this visit: no
[2023-12-22] MEDS: HYDROCODONE/ACET 5-325 MG TABLET 1 TAB PO (08:40)
== END 2023-12-22 09:20 | disposition home or self-care (01) ==
PROVIDERS: PCP Family Medicine; Visit Provider Obstetrics & Gynecology
PROC: (CPT 952; principal; 2023-12-22 08:10)
DX: N92.0 Excessive and frequent menstruation with regular cycle (principal); N93.9 Abnormal uterine and vaginal bleeding, unspecified; R10.2 Pelvic and perineal pain; Z90.49 Acquired absence of other specified parts of digestive tract; Z98.51 Tubal ligation status; E88.9 Metabolic disorder, unspecified; E88.810 Metabolic syndrome; Z79.85 Long-term (current) use of injectable non-insulin antidiabetic drugs; E11.9 Type 2 diabetes mellitus without complications; E28.2 Polycystic ovarian syndrome
CPT/HCPCS: 58563; 36415; 84702; 85025; J1100; J1885; J2250; J2405; J2704; J3010

== ENCOUNTER 2023-12-28 13:03 | Outpatient (OUT) | payer BC, SELFPAY ==
--- OUTSIDE RECORDS SUMMARY | 2023-12-28 13:13 | XMS_ITS | CCD ---
Author Organization [facility] Care Team Providers Care Electrical Engineering Professor Name Role Phone Johnathon Winter MD Primary Care Provider [phone] JESSICA ., DR ROMERO Admitting Unavailable JESSICA [...] Care Provider MD Tee Peterson Attending Provider [phone] ROHIT LARKIN Attending Unavailable MAGGY JOHNATHON E Referring Unavailable WINTER JOHNATHON E Primary Care Unavailable WINTERJOHNATHON E Referring Unavailable WINTER, JOHNATHON E Primary Care Unavailable KAL MARTINEZ Attending Unavailable ROHIT LARKIN Attending Unavailable ASMITA MONTGOMERY Referring Unavailable WINTER, JOHNATHON E Primary Care Unavailable KELI Resendez [...] SÁNCHEZ, Christiano Mcgovern Attending Unavailable Felicia SÁNCHEZ, [facility] Unavailable Miguel SÁNCHEZ, Christiano Mcgovern Attending Unavailable Miguel SÁNCHEZ, Christiano Mcgovern Attending Unavailable Felicia SÁNCHEZ, [facility] Unavailable Miguel SÁNCHEZ, Christiano Mcgovern Attending Unavailable Felicia SÁNCHEZ, [facility] Unavailable SANJEEV LOPEZ Attending Unavailable OSWALDO DEE Attending Unavailable SANJEEV LOPEZ Attending Unavailable SANJEEV LOPEZ Attending Unavailable ROBERT URRUTIA Attending Unavailable LA LOPEZY Referring Unavailable SANJEEV LOPEZ Attending Unavailable OSWALDO DEE Attending Unavailable SANJEEV LOPEZ Attending Unavailable DO Sanjeev Lopez Attending Provider [phone] Tee Peterson Admitting Unavailable Tee Peterson [...] once a week. 0 02/27/2023 Active nystatin 932193 unt/ml topical cream (9 sources) Polyene Antifungal Start: 05-01-2023 End: 04-30-2024 nystatin (Mycostatin) cream Indications: Follow-up encounter involving medication , Superficial skin infection Apply topically 2 (two) times a day 30 g 3 05/01/2023 04/30/2024 Active Start: 04-14-2023 nystatin (MYCO STATIN) powder Apply 1 Application topically in the morning and 1 Application before bedtime. 0 04/14/2023 Active Start: 04-14-2023 nystatin (Myco statin) 462324 UNIT/GM powder Indications: Skin irritation APPLY TO [...] days 20 tablet 0 08/19/2021 08/29/2021 Active Rdg-Zac-ON-Fish Oil ([facility] G[facility]) 0.4-113.5 MG CHEW (2 sources) Euc-Nze-IO-Fish Oil ([facility]) 0.4-113.5 MG CHEW Take [...] 8:36am Start: 12-08-2022 take 1 capsule by [facility] every twenty-four hours Vyvanse 50 MG [...] Test Name Value Interpretation Reference Range Facility [facility] 12-06-2023 L Specimen: [id number] Received: 12/07/23 Status: NATHAN Guzmán Num: [id number] Spec Type: Surgical Subm Dr: Sanjeev Lopez Tissues: A Endometrium - Biopsy (EMBX) Procedures: HE/2, Gross/Micro L4 Age/ Patient Sex Location Account Attending Physician Karuna Dumont 43/F [place] [id number] Sanjeev Lopez SPEC NUM: [id number] RECD: 12/07/23 STATUS: KASIEKiet LEISA NUM: [id number] GENEVA: 12/06/23- SUBM DR: Sanjeev Lopez ENTERED: 12/07/23 [facility] DR: Bert,Lab SPEC TYPE: Surgical DEPT: [facility]ON ENTERED BY: [id number] RECV BY: [id number] ORDERED: HE/2, Gross/Micro L4 ORDERED: HE/2, Gross/Micro [...] are performed supporting the above interpretation Specimen: [id number] Received: 12/07/23 Status: NATHAN Guzmán Num: [id number] Spec Type: Surgical Subm Dr: Sanjeev Lopez Tissues: A Endometrium - Biopsy (EMBX) Procedures: MELANIE/Melissa, Cheyanne/Kwame L4 Patient: Karuna Dumont [id number] (Continued) Specimen: [id number] Received: 12/07/23 (Continued) Signed (signature on file) Frida Kirby MD 12/12/232157 Specimen: [id number] Received: 12/07/23 Status: NATHAN Guzmán Num: [id number] Spec Type: Surgical Subm Dr: Sanjeev Lopez Tissues: A Endometrium - Biopsy (EMBX) Procedures: / Gross/Micro L4 Patient: Karuna Dumont [id number] (Continued) Specimen: [id number] Received: 12/07/23 (Continued) CPT Codes 60221 Specimen: [id number] Received: 12/07/23 Status: NATHAN Guzmán Num: [id number] Spec Type: Surgical Subm Dr: Sanjeev Lopez Tissues: A Endometrium - Biopsy (EMBX) Procedures: Gross/Micro L4 Patient: Karuna Dumont [id number] (Continued) Signed (signature on file) Chin-Blake Kirby MD 12/12/232157 Normal [facility] Free testosterone measuremen t by LC-MS/MSon 11-29-2023 Testosterone Free [Mass/Vol] <0.2 pg/mL 0.0-4.2 [facility] Comment on above: Performed at: [employer] [place], [place] [id number] Director: Theron Roblero PhD, Phone: [phone] at: [facility] [address] [id number] Director: Katelynn Macdonald MD, Phone: [phone] No Panel Informationon 11-28 Dehydroepiandrosterone Sulfate 40.8 ug/dL Abnormal 57.3-279.2 [facility] Sex Hormone Binding Globulin 60.9 nmol/L 24.6-122.0 [facility] Comment on above: Performed at: [employer] [place], [place] [id number] Director: Theron Roblero PhD, Phone: [phone] Testosterone Level <3 ng/dL Abnormal 8-60 [facility] Activated partial thrombopla stin time (aPTT) in platelet poor plasma by coagulation aon 10-25-2023 aPTT Coag (PPP) [Time] 29.5 s 22.3-36.2 [facility] Basophils Auto (Bld) [#/Vol] on 10-25-2023 Basophils (Bld) [#/Vol] 0.1 10 3/uL 0.0-0.1 [facility] Basophils/100 WBC Auto (Bld) on 10-25-2023 Basophils/100 WBC (Bld) 1.1 % 0.2-2.0 [facility] Eosinophils/100 WBC Auto (Bl d)on 10-25-2023 Eosinophils/100 WBC (Bld) 2.2 % 0.9-7.0 [facility] Erythrocyte distribution wid th Auto (RBC) [Ratio]on 10-25-2023 Erythrocyte distribution width (RBC) [Ratio] 14.5 % 11.0-15.0 [facility] Glucose mean value [Mass/vol ume] in Blood Estimated from glycated hemoglobinon 10-25-2023 Average glucose Estimated from glycated hemoglobin (Bld) [Mass/Vol] 88 mg/dL [facility] Hematocrit Auto (Bld) [Volum e fraction]on 10-25-2023 Hematocrit (Bld) [Volume fraction] 39.8 % 36.0-48.0 [facility] Hemoglobin [Mass/volume] in Bloodon 10-25-2023 Hemoglobin (Bld) [Mass/Vol] 12.6 g/dL 12.0-16.0 [facility] INR in Platelet poor plasma by Coagulation assayon 10-25-2023 INR Coag (PPP) [Relative time] 0.99 {INR} [facility] Comment on above: DESIRED INR:2.0-3.0 CONDITIONS NOT LISTED BELOW2.5-3.5 FOR PROSTHETIC HEART VALVE REPLACEMENT2.5-3.5 RECURRENT THROMBOSIS Laboratory - Chemistry and C hemistry - challengeon 10-25-2023 Free T4 [Mass/Vol] 1.24 ng/dL 0.76-1.46 [facility] TSH Qn 1.497 m[IU]/L 0.358-3.74 0 [facility] Laboratory - Hematology and Cell countson 10-25-2023 HbA1c (Bld) [Mass fraction] 4.7 % 4.5-6.2 [facility] Comment on above: ADA RECOMMENDED LIMI T 4.0 - 6.0ADA THERAPEUTIC TARGET < 7.0ACTION SUGGESTED> 7.0 Immature granulocytes/100 WBC (Bld) 0.2 % 0.0-0.5 [facility] Leukocytes [#/volume] correc mini for nucleated erythrocytes in Blood by Automated counon 10-25-2023 WBC corrected for nucl RBC Auto (Bld) [#/Vol] 5.5 10 3/uL 4.0-11.0 [facility] Lymphocytes Auto (Bld) [#/Vo l]on 10-25-2023 Lymphocytes (Bld) [#/Vol] 1.8 10 3/uL 1.2-3.8 [facility] Lymphocytes/100 WBC Auto (Bl d)on 10-25-2023 Lymphocytes/100 WBC (Bld) 33.3 % 20.5-60.0 [facility] MCH Auto (RBC) [Entitic mass ]on 10-25-2023 MCH (RBC) [Entitic mass] 27.9 pg 26.7-34.0 [facility] MCHC Auto (RBC) [Mass/Vol]on 10-25-2023 MCHC (RBC) [Mass/Vol] 31.7 g/dL 29.9-35.2 [facility] MCV Auto (RBC) [Entitic vol] on 10-25-2023 MCV (RBC) [Entitic vol] 88.1 fL 81.0-99.0 [facility] Monocytes Auto (Bld) [#/Vol] on 10-25-2023 Monocytes (Bld) [#/Vol] 0.3 10 3/uL 0.3-0.8 [facility] Monocytes/100 WBC Auto (Bld) on 10-25-2023 Monocytes/100 WBC (Bld) 5.4 % 1.7-12.0 [facility] Neutrophils Auto (Bld) [#/Vo l]on 10-25-2023 Neutrophils (Bld) [#/Vol] 3.2 10 3/uL 1.4-6.5 [facility] Neutrophils/100 WBC Auto (Bl d)on 10-25-2023 Neutrophils/100 WBC (Bld) 57.8 % 43.0-75.0 [facility] No Panel Informationon 10-24 Eosinophils # (Auto) 0.1 10 3/uL 0.0-0.7 [facility] Human Chorionic Gonadotropin, Quant <1 mIU/mL [facility] Comment on above: 5-50 0.2-1 USIR49-39 0 1-2 CDDPV084-7,000 2-3 VVTHD839-96,000 3-4 WEEKS1,000-50,000 4-5 WEEKS10,000-100,000 5-6 WEEKS15,000-200,000 6-8 WEEKS10,000-100,000 2-3 MONTHS Immature Granulocyte # (Auto) 0.01 10 3/uL 0.00-0.03 [facility] Platelet mean volume Auto (B ld) [Entitic vol]on 10-25-2023 Platelet mean volume (Bld) [Entitic vol] 9.7 fL 9.5-13.5 [facility] Platelets Auto (Bld) [#/Vol] on 10-25-2023 Platelets (Bld) [#/Vol] 300 10 3/uL 150-450 [facility] Prothrombin time (PT)on 10-02 PT Coag (PPP) [Time] 10.5 s 9.0-11.6 [facility] RBC Auto (Bld) [#/Vol]on RBC (Bld) [#/Vol] 4.52 10 6/uL 4.20-5.40 [facility] Coding Summaryon 09-01-2023 Coding Summary HTMLBase 64 ZiftqflwCZn9lLs+PGhlYWQ+ NB1WFXDeP92hqJHoqG8qZ7GG TElOSywgQVBQTElOSyIgbmFt ZX6vuZMgAUTi IC8+OU7tGIUtIhpomUXpu9L1 cAH0V48jrm9qSLfbbLN0QNKz CtCvdjobx5pdyZa9QWdiRdfw OyBt ZTYwmH16GNT8jA55Zu31bWHu qSEpi0tyeRc6XtGuJKAyARC5 cHkeBUnyz9TaDHYeZ99fcUFg c2U6 DLOcwSiyoCMeGnGjiBP0pF2b ZPczdjjng2clapgmZmb9tg19 kEQea8K2gFT0O7LkzvO7IDZd bGQg NphtyBNByZ3jqwact9hvibvn ArFkVTPvNZb0FJf7UZEqjXop OoJeUV52HHZ5LKNmmsBqW1Nk LWFs wMpyLoK5k1A6Zf9DW4MWUdyu O2UKZQUVSCxduBQ+ID54kz32 B5UxGzvrPar6HUQmSVX6eDP7 aD0n TSOeHPnis6K4jQM8P4HrqyMa zc4bl8hsVUXhOLuqT32ooCBm i6X5ZGZoiGA3NVHzuOgaCjWf aG93 Oyc+NKIunYovu8McIwfwc4mz b9bkfSq9VriqUPXnmaFvaAxo WJR2n2VtGj3yMOAspSI7gCC8 aD0i CsOgQfZ0OThsC856ErIhgHMo LaggU92tK0LeqRV+PHRyPjx0 WBKoeDiaBF7fL5VoPROadfkc bGVm kOixXE1pYRQlpjqsOEGghT1g ICSmJ1r4JjUxTuE2TFedE8Ok ZRGfplvxSn30gG9xUaUiWsI4 MGlu Q7DneqP3GZRpyFEvGXazYWR3 I59av5O7JZQaHAMnSJA7bRJ8 uH3aqDgnzwkljISdmXgllhXl dGlj ZQgtKOvpI141VYPzyEmoQcGb ZGluZyBEYXRlOiAgMDUvMzEv MjAyNDwvdGQ+NYEhTGW4kLfk PSAn aSSoLDggZn9isQvnhQcgIN2h GAVwisnlBUPvlN6gMXUdgEHs kRcjHP1aDCEahqofl338SdPy MHB0 PEBwgFDgO2UzqC1dNyZaXCSz BFReO5SbuOPjQErzF241IDgx JmE1SFGigaFwT1QkBCZypIor OiB0 x2O3Hw1Td7DhqxsaH1QcoMJv QvViBdkfKOo3E5BfJmpqcOT+ GV76GYNtXZ58HIw5AJB8xCul PSdi UHLwF0RenC4xKdNaTQQzZTJk Oyc+PHRhYmxlIHdpZHRoPScx GLDaVyWuaTitGS1qWm1qGVMh LWNv xKtapKLgQvAep6knVKYoPMgw FO8btGozJ7QkeOH5WTYmx3d1 Iy72L94tE8OflAN+PGNvbCB3 aWR0 lN5oKtNxZiS2AEcuG461UpEw rMJdDebvx4fbt8yskFg3LgX8 RVDujtJsoNtvXNH2i1EgPh73 Y29s IHdpZHRoPSIxNSUiIHZhbGln qb2krP0gMz8+FCShfHI2uBG8 vS8hGqZwVwV8FEueU776TqQu cCIv Nvxex7dld4gzgLy0OoSrIZTa trWnsYzjMLZ6c7LdHb76I6Uz eAozy0LvGfi3ei12fEAag6L0 bGU9 Z5NnTDSzvsmnzWXrgNtnNH8i GEQdslcvIGBgeV2uPUImK4u5 AbCrDpG2KQamE7BmqeS5XDZh bGQg TVHhkOUWcK8xlyxhe3spphcu DqUeTHNiGDv4HEe0GFCotXex UrBtPMQ0SzN8LHL7bJWinE3r bGln cczwzI5eAhv+ZTW8zURybKYT NW6cOgsllAA+RSXcVHN9mBjx TNegCGLwpX3qNGKxK7u4StFa LjA1 HInpL5LqebR5OYXoqWXnPHIs lQGUxT8nccugw3hzvmdpBhBm YAWkEPv4FXv6WNNhaMytYjHr ZWZ0 JrI7VNN7pKLexV0keApjklhx eF3jRrh+UkcbmBhkPWF6CKg0 F7ArKth5PBNceJrxEF1xiOHp ZGlu Ue0bnUztcGtfPS7kQLRxrvht n570QbKlv1vyKIJvwXCdAIjl IQQ6Q78uf1S9LPIoWVDzKMM8 dGV4 bF8ltOktgaykbOPeeIcdqkWc cTphATeyMTojL521LPBhjOkv QqJtYLo2S2WiBdk1QEQblCmp ZT0n xJVvBBfxXt6blCkfdVlePJ4s BGCjolhtx372BwZin2xoNEGe mWVqPIqqQBA6E84wa2X7NUFb MDAw UEB8lJM3zM7cgYjyurhzxLKn vQhtliTlbSmeKUexZBdsT282 EPSaxLjiUcBepVv1Y2HsBmm2 ZCBz kClmRK9dxMTmVScrXt2lfAkv vQplMJ6ePCOpkbomy634NuHh k8xxZTMyaVHtGHjdQOR3J50g b3I6 AJWiGINqAVD7fKK5vM5iiEer bjogbGVmdDsgdmVydGljYWwt HKuqV319NZItlPlxCrZvtOxu bnQg OFniKGj2F5UaPkbcdOX+PC90 DCJzTM62vJDelXOvq7zolAu3 PlCpOKSgVEM9sFkhQFmdo9Eo ZXIt O61ntPRxz5V4RTWvtQwzkUYe CzEnhHO2zA5xTJwtpulhm7gf oizeFumzq4xdya33yE66V27w IHdp VAAhGOEjLBOyTOThiXvhat2v hL0cNd9+RSFlzXJ8oCD0jQ8v VPQwPxS1OCqtD431XtNrhYWw Pjxj r9rfu9aouRc4BrZ2IEXunoTy vPfpRYU8m6MpUl18W77hBDtd NGLiWPNoKNKnFHRaeFxhuo7c dG9w Ii8+SJIhfKF4rCI9dM1cJbEj BnX1NMhpD725YoUffCGaQlji N48dS9XqrNP+YUAaRqc3JDOk dHls RZ5gkFZoMLtuVu3vXLM2EbRr QmIeHUpoL2PkXNVqierbldye mGK1AJJdZBFndU33Ui8vaPsk MTBw iYKEgI5fjwfsc1okvqkcAuZb WMJfQCk4JLs1DEJbkQvyFxIv RFX4LnL8UTR7gZMuiY3ceYbr bjog bA7vA0KmXFXlnwryHq69fO3u JfHmEdX0LMwtOag+Q52UN9fZ LCBBTUFOREEgREFXTjwvdGQ+ PHRk QEJ2gOucZJyuHKBksB5aOVLx T7n2NjAhNaN5JZpmS2JjJAHa pfjbQr11xX3uUuXuThL8FIyo O2Zv uhI1KLWudFGfHHbxQCD2K39c j7H7ERYcDQZbYAG8eAZ0yB4a bGlnbjogbGVmdDsgdmVydGlj YWwt YFrcB184SQJhkKhfUiM2BnKf YiY3DOJ9N1AjHzy4MJAhvGxp TH5nkRRkCCmhWn9rjXfowNdr MC4w YWGkhsyhDKQsuE3uZFTsnHQn vIjuJC4aFMNotyhgg928ZvHk FQP3TMPraUZyJ5QxyN2jDoUe MDAw VSPcR1BmvVRqRHedJ716VKlh WnL0WVFallHbA8LxDSToxVjp CdV5c0T6Qv11VDPOARJauoxu dGQ+ YKUwUOE3iWqmGUwlHYSgoZ6f LIGlJ3x5QhZgJpC7XAvbP2Ep YCUsziucTr60oT1gSxIxDsR8 MGlu M3CntbW5AINdbZWtCAdfLEV4 R56qm5M5UYUqMDWzBWR1vUY0 lV9tzYikkzhjwUMkhYwlnmZd dGlj SHdsCSfaP490UWKauJfyQrGO TUFMRTwvdGQ+KTTwSPZ6pOko RRveNDCspG2yECEyG9h3EpXi LjA1 RRidO6GoYRPojpwfSd41iY3d KkQjWbL3TJuxG1EwehD8IKFd kOQmEDfjQBK9U40iq1X8TRXe MDAw MYU1oWX8nY6vpVrinplilONc zXjywlFvpNohHRwyOMeaJ357 TWKpdYpuUv5WJM79GO86P8Xj Pjwv dGFibGU+PHRhYmxlIHdpZHRo HLqjKDCdVjHnmFagSU0yWf4m YULkAAQqlBderGEvQgAlp7tg YXBz FDnuJD0krCsbF4LmtCQ9MKVj a8q7Fm17U40dM7ZmuZY+PGNv xWR1iZL5tE3vSzPnRpB7XZwp Z249 QcWokRImGwmfp7ylx3axqKr3 TcYvNUEgsdQwbYfwBME7c3Tj Xe85D53gAUgoQGGjEKIfPSRu IHZh qZwbpf3ewD9bVu6+PGNvbCB3 wVW3cD4kXpGtYcZ6TTfxB489 HbDpbGCfDvsyW46zY7LthAV+ PHRy Ont4QDGcoIrgWX8uxVQbSCnn Gw4xYQT2EqWgSoEtJAnjD5Pg HMAifcfeyzhhzUM8YYEpDRCa aW47 Li4xtIomAn2qGNAvYFN8OKTg uTPcB4YvoP7uBdUyUKXbHQNi X4NqiCNkVQrxC285SWtwNzI8 IHZl ttEaY3CvPTXswKgyQpY2f4U7 Jl2YyCfcmTBbEA5oPoGpFLk6 A8ZaUbq7OKAatJotSA6kcBLq ZGlu Wh1seIrjeTlhVP7oZLYjerwh h292HxGig2puOPTmxKBkURbz RNC9R61ar7T2NAAcASJtEIM2 dGV4 oP4igWwuaebqmEYdzEjcqyEp rNgbIBsoUVjsI277PTSjjKjd WlMFDzc3T3TnOph1LEAejQej ZT0n kYHhZJtgTj4lySckcPlfKO3t BRKlqgcrl379SlOft2sqTPCy sKCyFXxqRIB1P00mm0Z2XIKp MDAw VBG4aZH6uG4vkVctemaxyCUf eMhautTrkBjmWFuwNUhgI729 PUOynFrpMk1TGuj6T0WhQfo1 ZCBz pYbfUT9uiQFnGCxfHf2jjMwh tYnmFL6lVWNucgzcv028UhXs f1tcIDMknAPsJBymCFV8W09z b3I6 LHAqTWWvHBH8vGY2xG9gaNhn bjogbGVmdDsgdmVydGljYWwt XXnmU506ABGhdEbmUxYypVYt Ojwv dGQ+KS99vh08M0JcAfgxEvr9 DRLqBUM7zLR4zW9sEDDqZIpu y9F6jSF8Y9NlzqPfpx8tj8kk YXBz ZTo (more content not included)... Normal [facility] ED Clinical Summaryon 2023 ED Clinical Summary [facility] ? Urgent Care [address] [place] [address] Clinical Summary PERSON INFORMATION Name: KARUNA DUMONT Age: 42 Years Sex: FEMALE : 1980 MRN: Acct#: Visit Reason: Skin problem; RASH ON ARMS Arrival: 08/23/2023 14:45:23 Discharge: 08/23/2023 15:20:00 LOS: 000 00:35 Check In: 08/23/2023 14:45:23 Checkout: 08/23/2023 15:20:00 Address: [facility] [place] [facility] [address] PCP: Johnathon Winter MD PROVIDER INFORMATION Provider [...] Follow-Up: With: Address: When: Johnathon Winter MD [address] [place], [place] [address] DIAGNOSIS: 1:Rash and nonspecific skin eruption; 2:Elevated blood pressure reading without diagnosis of hypertension Patient Understands: Comment: Normal [facility] ED Patient Summaryon 024 ED Patient Summary [facility] ? Urgent Care [address] [place] [address] PATIENT DISCHARGE INSTRUCTIONS Patient Information Name: KARUNA DUMONT Age: 42 Years Date of : 1980 Reason For Visit: Skin problem; RASH ON ARMS Arrival Time: 08/23/2023 14:45:23 Primary Care Physician: Johnathon Winter MD Attending Physician: Yissel Resendez PA-C Comment: Patient Education With: Address: When: Johnathon Winter MD [address] [place] [address] Rash, Adult A rash is a [...] with your condition: Medicine Take or apply saic-kkv-xigopuh and prescription medicines only as told by [...] a bath with: ? Epsom salts. Follow underground foreman instructions on the packaging. You can get these at your local pharmacy or grocery store. ? Baking soda. Pour a small amount into the bath as told by your health care provider. ? Colloidal oatmeal. Follow underground foreman instructions on the packaging. You can get this at your local pharmacy or grocery store. ? Try applying baking soda paste to your skin. Stir water into baking soda until it reaches a paste-like consistency. ? Try applying calamine lotion. This is an bknv-vtu-qtrywiu lotion that helps to relieve itchiness. ? [...] rash from spreading. ? Take or apply kxuu-goo-sqjxdgq and prescription medicines only as told by your health care provider. ? Contact a health care provider if you have new or worsening symptoms. ? Keep all follow-up visits as told by yo (more content not included)... Normal [facility] Jose 05-23-2023 L Specimen: [id number] Received: 05/24/23 Status: NATHAN Guzmán Num: [id number] Spec Type: Surgical Subm Dr: Tee Peterson MD Tissues: A BREAST CORE NO CALCS (LT BREAST) Procedures: HE/4, Gross/Micro L4, AE1-AE3/2 Age/ Patient Sex Location Account Attending Physician Karuna Dumont 42/F [facility] [id number] Tee Peterson MD SPEC NUM: [id number] RECD: 05/24/23 STATUS: NATHAN GUZMÁN NUM: [id number] GENEVA: 05/23/23- SUBM DR: Tee Peterson MD ENTERED: 05/24/23 [facility] DR: Bert,Lab SPEC TYPE: Surgical DEPT: ROLDAN [...] Time: 0.10 Formalin Fixation Time: 28.50 Specimen: [id number] Received: 05/24/23 Status: KASIEKiet Guzmán Num: [id number] Spec Type: Surgical Subm Dr: Tee Peterson MD Tissues: A BREAST CORE NO CALCS (LT BREAST) Procedures: HE/4, Gross/Micro L4, AE1-AE3/2 Patient: JuliaKaruna D [id number] (Continued) Specimen: [id number] Received: 05/24/23 (Continued) Signed (signature on file) Tootie Jordan MD 05/31/23 2106 Specimen: [id number] Received: 05/24/23 Status: NATHAN Guzmán Num: [id number] Spec Type: Surgical Subm Dr: Tee Peterson MD Tissues: A BREAST CORE NO CALCS (LT BREAST) Procedures: HE/4, Gross/Micro L4, AE1-AE3/2 Patient: Karuna Dumont [id number] (Continued) Specimen: [id number] Received: 05/24/23 (Continued) CPT Codes 31969 Specimen: [id number] Received: 05/24/23 Status: NATHAN Guzmán Num: [id number] Spec Type: Surgical Subm Dr: Tee Peterson MD Tissues: A BREAST CORE NO CALCS (LT BREAST) Procedures: HE/4, Gross/Micro L4, AE1-AE3/2 Patient: Karuna Dumont [id number] (Continued) Signed (signature on file) Tootie Jordan MD 05/31/232105 Normal [facility] MR LUMBAR SPINE WO CONTon [...] Yung Perry on 05/23/2023 12:47 PM Normal [facility] Free testosterone measuremen t by LC-MS/MSon 05-10-2023 Testosterone Free [Mass/Vol] 0.6 pg/mL 0.0-4.2 [facility] Comment on above: Performed at: [email or web address] [address] [id number] Director: Theron Roblero PhD, Phone: [phone] at: [facility] [employer] [id number] Director: Katelynn Macdonald MD, Phone: [phone] No Panel Informationon 05-10 C-Peptide 2.8 ng/mL 1.1-4.4 [facility] Comment on above: C-Peptide reference interval is for fasting patients.Performed at: [employer] [address] [id number] Director: Theron Roblero PhD, Phone: [phone] Dehydroepiandrosterone Sulfate 194.0 ug/dL 57.3-279.2 [facility] Free Cortisol, Dialysis, LCMS 0.787 ug/dL . [facility] Comment on above: These tests were dev eloped and their performancecharacteristics determined by [facility]. They have not beencleared or approved by the Food and Drug Administration.Reference Range:8 AM 0.10 - 1.204 PM 0.042 - 0.872Performed at: [facility] [employer] [address] [place], [place] [id number] Director: Kal Archibald MD, Phone: [phone] Reverse Triiodothyronine (T3) 23.0 ng/dL 9.2-24.1 [facility] Comment on above: This test was develo ped and its performance characteristicsdetermined by [facility]. It has not been cleared orapproved by the Food and Drug Administration.Performed at: [facility] [email or web address] [id number] Director: Katelynn Macdonald MD, Phone: [phone] Sex Hormone Binding Globulin 49.1 nmol/L 24.6-122.0 [facility] Comment on above: Performed at: - [facility] [address] [id number] Director: Theron Roblero PhD, Phone: [phone] Testosterone Level 22 ng/dL 8-60 [facility] Plasma serotonin measurement (mass/volume)on 05-10-2023 Serotonin (P) [Mass/Vol] 105 ng/mL 31-207 [facility] Comment on above: This test was develo ped and its performance characteristicsdetermined by [facility]. It has not been cleared orapproved by the Food and Drug Administration.Performed at: [facility] [email or web address] [id number] Director: Katelynn Macdonald MD, Phone: [phone] Serum estrone measurementon 05-10-2023 E1 [Mass/Vol] 65 pg/mL 231 [facility] Comment on above: Range Adult (Premeno pausal) 27 - 231 Menstrual Cycle (1-10 days) 19 - 149 Menstrual Cycle (11-20 days) 32 - 176 Menstrual Cycle (21-30 days) 37 - 200Performed at: [facility] [place], [place] [id number] Director: Katelynn Macdonald MD, Phone: [phone] Serum or plasma estradiol (E 2) measurement (mass/volume)on 05-10-2023 E2 [Mass/Vol] 98.9 pg/mL . [facility] Comment on above: Adult Female Range F ollicular phase 12.5 - 166.0 Ovulation phase 85.8 - 498.0 Luteal phase 43.8 - 211.0 Postmenopausal <6.0 - 54.7 1st trimester 215.0 - >4300.0Roche ECLIA methodology Serum or plasma insulin mariam urement (units/volume)on 05-10-2023 Insulin Qn 7.0 u[iU]/mL 2.6-24.9 [facility] Comment on above: Performed at: [employer] [address] [place], [place] [id number] Director: Theron Roblero PhD, Phone: [phone] Serum or plasma progesterone measurement (mass/volume)on 05-10-2023 Progesterone [Mass/Vol] 0.1 ng/mL . [facility] Comment on above: Follicular phase 0.1 - 0.9 Luteal phase 1.8 - 23.9 Ovulation phase 0.1 - 12.0 First trimester 11.0 - 44.3 Second trimester 25.4 - 83.3 Third trimester 58.7 - 214.0 Postmenopausal 0.0 - 0.1Performed at: [employer] [place], [place] [id number] Director: Theron Roblero PhD, Phone: [phone] Serum or plasma thyroperoxid ase antibody assay (units/volume)on 05-10-2023 TPO Ab Qn 11 [IU]/mL 0-34 [facility] Thyroglobulin [Mass/volume] in Serum or Plasmaon 05-10-2023 Thyroglobulin [Mass/Vol] <1.0 [IU]/mL 0.0-0.9 [facility] Comment on above: Thyroglobulin Antibo dy measured by Sarah FeedVisorMethodologyPerformed at: [employer] [place], [place] [id number] Director: Theron Roblero PhD, Phone: [phone] XR LUMBAR SPINE AP, LATERAL, FLEXION AND [...] most pronounced at L5-S1. Mild levoconvex curvature. Workstation:[employer] Finalized by Yung Perry on 05/05/2023 1:28 PM Normal [facility] Coding Summaryon 03-20-2023 Coding Summary HTMLBase 64 IfgijiimMCr5wCr+PGhlYWQ+ VX9DPYTgV19gkGUinN7jT3SY TElOSywgQVBQTElOSyIgbmFt DH5lkONyYYKw IC8+RV0tHMMpIpzmbARjf9S6 fMN6O35wmo8rFNmagAJ0XIAz WzRvzvkgo3zqaAq8GVanUhpw OyBt MNBpnA92FZD0yL27Nj78bDXu iYCeq4gjzNz5XzXzTCFmKXD7 yWftHHtbd8HcLKIzK31etCXk c2U6 LWOmoRztrFAnLkQvpGY7gY2l NKrcopbvu5pozvvjMfe3wn29 uYLtf9E6dEW2M7AdfsT6ARSa bGQg QoeppJBFqP0xttmhz0qmstka YgGoXFTaFTo0IKx9VRKccRzn HvKtSL44FRX6LCLykgGbN0Td LWFs zRraNbP5x2I4Bf9SW7FRPshs I8DSEYWOQWcrfWK+MN80ro86 K7DzRwxgTkj0MFLrFMJ2rMC3 aD0n GKBxGDrku1C6zQX2F8NwzrQa nz3ak4mlKGBoYDjoF27nvVAe o7J4JVIebCP8ISDcvPjaRlAw aG93 Oyc+CJXamBzdj9NwMtqpa5mh n2nocBk3AlguVTNhkcCsnVgy CYN5f3LgWl6aSDGvbOI6kVQ3 aD0i PwXxIfJ6HTtsC026HiNnyITd AebfO61zQ4DrgVQ+PHRyPjx0 JYXqbXvnQJ9uV8KqHZRmpbqj bGVm tBquVB6bLZXktfaiEPAetX9a VVKxO8w7GeWlEiP2CZkjH3Md IJIivfwtLv07hN2lKqWbRfR5 MGlu Z1FontQ2ZVJlvXSuQOpcTNI4 I20hc9J1DRQtIVWtSTU0rAB3 wN1mjQipscsvmZZowXjqjwOo dGlj JPrxSJzuJ274LLNcsFknDiZq ZGluZyBEYXRlOiAgMTIvMTgv MjAyMzwvdGQ+BMMpNLT5iLax PSAn jGXhOIzrYb2tfPdjlRctTB7n XICurlvpHIPobY1oEXLosWNm aVwuTE1wYXZyccnro344ArYc MHB0 WSNzvQYzR7LssW6vNtTuBVCo UERuB2KrkUWtWNjuA078GPwl KrD6PMTniuCvP0YoNSAdcRbx OiB0 l6S5Ga5An8HsnerwX1LdkSVr DdMrLcscFSv6G8TtWsaxzQM+ KY25PETsXF60PKb9HGI5jZac PSdi WXBrQ7CgiJ0fCvFxBBOjOOXb Oyc+PHRhYmxlIHdpZHRoPScx JQLzDnGbdBpdVV2uCo8hOXGr LWNv pDiuvDQyDvPpo4piTPVhXPoe NQ4aqJnjR0CjgKL0JEKbb0u1 Vg10H48tB8MhcKB+PGNvbCB3 aWR0 yJ7iLaZhQvS9JJfzX827VxIz aVNxQybdu1ggk1ykyQz4QuD9 DIEuniUbtBhiJBD3d8TjFq10 Y29s IHdpZHRoPSIxNSUiIHZhbGln iy3xqE4zTx8+QZRnxGV3vCZ3 mM5zOoZdHmI6XJghR497MeBf cCIv Qkwdc8iyq0brnKk3AaLxWPSk ksFfcWstVCS6j7RqIf84G9Mg nQuqb6RjFxm6og72bRJhc3P7 bGU9 W4LuDJNcpvvyaYVejUakVX8g YGHuyygaCRCkyY0gLFJsU9i9 ToGlPqV2WChkG2GgjuL0KJXx bGQg QPYlzWKEtW6hwqsof9mceade JhYsAQTqBCr8YGc5AEKtoWzx CrKvGAI5OfG2MYX4pUEvoG6f bGln evlzgI5uPdp+PIY5eIOeyART DO1bGlhzaPV+HJYdCHZ3oWkl AJokMXDjdI0oWFHjS6k5WfQn LjA1 MUrrA5WnzrO8GHZawRTaOGTi jYTAvN7nvzesu0mfwdrtDgFv UZEfQZl6ZJw6JDYjaCosLgWy ZWZ0 QkF2QQX9fWEdmJ4wuJyypukj sR0aCyl+HxrkwKlaOTI1LZr9 F1TaNqr5DGPooRpdIJ6mgNGr ZGlu Ub7wrOunjUpzFP9lMFTddxlv x614LmNtw3pdZXApmIOrALop YRP2X27bw5G6DOBlJRAbRIP2 dGV4 mW9bpLeewfsybWIexDhemxSo oXkjDHtaCYgxS640HBVrfVjb HmLeCLa6H6BbJno1GEVomQpz ZT0n sHLyIShqPy2elZobsEjfOS4n HBVdjhxqf600EjXxy4eaWRGe lYFiUPzaYPY7W16zl3X9XTZq MDAw CMV9gGR5oC2ybGufpcrmeYGo hBklcdVaqOreCKoyXCgbE911 RJQxvAnoHhVmqLs2Y4MaRcq5 ZCBz iBpeIO8gmKKbHRetAj3ngBks mUwnSI5lMNCrkliky828PuOc e1mpHBUugXImHVjuTBE0A43h b3I6 IPJsQUQyMPO3aBR0wC6erCjf bjogbGVmdDsgdmVydGljYWwt EOuoW761SVPqtKkcZvYraTck bnQg XSgvSIo5G3QnPuhkfYT+PC90 CORbGP44mXApzHQft9kdtIl2 VgKwXVKzTCM5yMxtLQbrj6Yq ZXIt U73obIJdu6V2FLWnqJcdsKAu YjXjaKR0qE4aHFurvcjcj1ot gdzsHajzk4wptz19pO13B41p IHdp WLJjGEGyTGJoGZFqxJvxdg1x mR4zKz9+RILxyKN6nEA6uM3c HIKbFuB7CLsdP665EcXyeSIl Pjxj e5ndb2abwDy3MbF2FMUzzjTv pIgmFBC4s5BaDe54P29qZNly CNNvFRPoISCmPRKchSnpmy4q dG9w Ii8+FEDeuAT6aPR7mB7qMzOa VcR5ZVwcS661IbZlrFLnTkby W86tR4MdjEX+ODIoHvd1NRWp dHls UI6olWOqNOcrZt8tIWL9LlKp CpYbPIhtN8TdWYNbaqjafise qJA4BAOrLCLxyI00Po0tvYov MTBw zVKCmF3xhznwq0tuibiaYgMn EIJwOCq6LJv4RQIzcKybOpBm XAA6MbD6CQG6aNSrjK7ocJfx bjog jX7tI8JaUANudgkrZh78tY0y SwEpQlA8CCsoGif+E29NE7dD LCBBTUFOREEgREFXTjwvdGQ+ PHRk LQS7xWhyMMueCAAagX7xNAVu H7s1AbEwLwM2XNxuA9UsCAYo rvuwPu56lV3fBzPrJiX1HKem O2Zv riF2OYPooQKfFTmeYFG2H43e q2U9DEByZINpHZH7pMF6cW9r bGlnbjogbGVmdDsgdmVydGlj YWwt PTciR822CBAtlYruAaE4ArPw FzA1BSN2Z7DmOeq6NHVvpVxv TW8rpSJmJMhkVm9sjMjjiPmm MC4w OGAdczddAAMlwZ1aWFIqpQLx qYvnJR6gIAIgukqmk722JoMs CLM9WFRotJLxH0VbcA3nUaKw MDAw YWQwS0JtqBUbZXukX542PUjf MlV3AEVpdwChC1PfYRCqwSuh GkT3o3R8Ph37KCXKVRVirfpb dGQ+ MTYnXAC4sIurROetYNQwdZ0a XXFyJ6o2MwOtApD1DKdeV9Fh UOWfzfyhIt86oS3aIrHbKcZ4 MGlu W8IiftK7YBVzyFRkFCqvBXA8 X39xj9N8VQXlBSHwVFB1yMP4 bR8ekWlmeyinwIDauIyildZv dGlj HEmsTVasF976AQJybYsdDxJZ TUFMRTwvdGQ+AQUfOYC1tUte XMxsBHTuaR7jPFHhQ1a5MzGp LjA1 KPtbR2AuCZHzvrfcRx12bV0k MlRoEbN8HOqyA4HgsyX7FKRa wNTwYUrwAKJ9L58tl8I1HJFx MDAw UGA7mRI3vN2mgSunpbanjTVu jOjfujSiyBnqVBhdYDfwT560 PXZudIouVk4ILQ59PH13E7Wa Pjwv dGFibGU+PHRhYmxlIHdpZHRo YYsyDNEqYcBpsMdxFZ8uIf9s JCLdZUJqeFaasGYuIbVhe6vb YXBz MSnlBO8vqOriM7ZbnZG2CQYo c0l3Ll64O74pJ7WjoRB+PGNv zSP2kEV2uN7jDxRzDhU9EBmo Z249 NfGrbJYuOgyqa3zgq2qqlBv7 CvUfCHDagbIgqUwkHSC1f4Lq Bn43L12xVUabOTQnBTHfBEBk IHZh gCynur9myI0yNq5+PGNvbCB3 lCF2qW5zYeRoEnV2RHdtI314 PoJqeNBsYqbqW66cO1IghBA+ PHRy Wne0WECdnHhnWB6twGAkDLvv Ue5xFQQ6DmSyTrWvUMncT0Ap OFZuaqtjvczglDS3OWLxJHRe aW47 Ds2ieBuuQx7tLXNlPVF7DXMb uUDhY9HgoV2wHaMkTSYeSYDk R4MucPKsSUczA473GUwoKnR2 IHZl zaVlD8ZcRHFcbMinPbB0t4I3 Pq1EpUzujHIlZX6qCmClWEo3 D8IxPrx8JPExlDawLK5wtXYd ZGlu Pp1mgFysxXtsLS3cNBAbqxqj q904VxIjn7wpDWRloLIwRAvu PBO9Q58jm5F9PHXbXHSmJMS4 dGV4 kX7qhPfjxbjekPOgcMbiwmQs zPzxQBpgAOziI582NBSkyGlf TtVOEdm7V9OcLbv9QOVcvIyw ZT0n eJGdOFzeId8oqGuxyDbsFW7k IZZruxmsd954UcTzv9wcTSFk jJKqAJllKNK3Y22ou5H4VRGz MDAw VNP6dLX4uM5rlUhvhasdcMXo sDwvzaSmxLqlMJrgKDimM216 KDQykIohVq1NDfg3V5KoPuv1 ZCBz tVfhNZ5efNFiIIgbRw4vwHzk eQroGI5kRXLrvfeyw163NrWo c7crQHUwaVQqORjvCSF1V72o b3I6 GKUcIQQqUDM6hCT7lK6awCfl bjogbGVmdDsgdmVydGljYWwt LQedH932IXTelXcgKeGrwESl Ojwv dGQ+JT18ec48L6IzHtngDii8 SFUyKPR2hZE6hS4nBETjOYjp z6O8tNR7R8VwlkNbhu6hh9yu YXBz ZTo (more content not included)... Normal [facility] ED Clinical Summaryon 2022 ED Clinical Summary [facility] ? Urgent Care [address] [place] [id number] Clinical Summary PERSON INFORMATION Name: KARUNA DUMONT Age: 42 Years Sex: FEMALE : 1980 MRN: Acct#: Visit Reason: UC - Finger/Thumb Injury; RT RING FINGER INJURY Arrival: 03/09/2023 10:15:32 Discharge: 03/09/2023 12:03:00 LOS: 000 01:48 Check In: 03/09/2023 10:15:32 Checkout: 03/09/2023 12:03:00 Address: [address] [facility] [address] PCP: Johnathon Winter MD PROVIDER INFORMATION Provider [...] With: Address: When: YUNG LAWS DO [address] [employer] [address] [address] Within 3 to 5 days [...] verbalizes understanding of instructions given Comment: Normal [facility] ED Patient Summaryon 023 ED Patient Summary [facility] ? Urgent Care [address] [place] [address] [id number] PATIENT DISCHARGE INSTRUCTIONS Patient Information Name: KARUNA DUMONT Age: 42 Years Date of : 1980 [facility]: [id number] Reason For Visit: UC - Finger/Thumb Injury; RT RING FINGER INJURY Arrival Time: 03/09/2023 10:15:32 Primary Care Physician: Johnathon Winter MD Attending Physician: Sanchez John Comment: Patient Education With: Address: When: YUNG LAWS DO [address] [employer] [address] [place] [id number] Within 3 to 5 days Comments: Diagnosis [...] or cold (more content not included)... Normal [facility] Urgent Care Recordon 023 Urgent Care Record [facility] ? 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 It is important for you to follow up with a doctor, nurse practitioner, or physician?s preschool assistant for ongoing care. If your symptoms [...] can reach you if necessary. [facility] has provided you with a complete list of medications post discharge. Please inform your computer teacher/provider of your visit and for further [...] your st (more content not included)... [facility] XR Finger Righton 03-09-2023 XR Finger [...] 03/09/23 11:56 a Technologist: Vannesa DANGELO [facility] No Panel Informationon 10-11 No acute bony abnormalities are noted [facility] EXAMINATION: THREE XRAY VIEWS OF THE [...] well maintained. Soft tissue swelling. Calcaneal spurs [facility] Miller Romo MD - 10/11/2022 EXAMINATION: [...] No acute bony abnormalities are noted [facility] Radiology Study observation (narrative) [facility] No Panel InformationOrdered By: Miller Romo on 10-11-2022 [facility] Work Phone: XR ANKLE RIGHT (MIN 3 [...] Miller Romo MD 10/11/22 Final result Normal [facility] XR FOOT RIGHT (MIN 3 VIEWS)o [...] Miller Romo MD 10/11/22 Final result Normal [facility] PAP ACOG PANEL 2: 30 to 65on 07-16-2022 . . Normal [facility] Comment on above: Result Comment: Perf ormed at: WB Performed By: #### [id number] #### [facility] [address] [address] [address] Dang Kirby Age Gdln ACOG Testing 30-65 Normal [facility] Comment on above: Performed By: #### 4 [id number] #### [facility] [address] [address] [address] Dang Kirby DIAGNOSIS: Comment Normal [facility] Comment on above: Result Comment: NEGA TIVE FOR INTRAEPITHELIAL LESION OR MALIGNANCY. THIS SPECIMEN WAS RESCREENED PART OF OUR CHARGE COORDINATOR PROGRAM. Performed at: WB Performed By: #### 4 [id number] #### [facility] [address] [address] [address] Dang Kirby HPV Aptima Negative Normal Negative [facility] Comment on above: Result Comment: This nucleic acid amplification test detects fourteen high-risk HPV types (16,18,31,33,35,39,45,51,52,56,58,59,66,68) without differentiation. Performed at: =G Performed By: #### 4 [id number] #### [facility] [address] [address] [address] Dang Kirby HPV Genotype Reflex Comment Normal [facility] Comment on above: Result Comment: Crit eria not met, HPV Genotype not performed. Performed at: WB Performed By: #### 4 [id number] #### [facility] [address] [address] [address] Dang Kirby Methodology: Comment Normal [facility] Comment on above: Result Comment: This liquid based ThinPrep(R) pap test was screened with the use of an image guided system. Performed at: WB Performed By: #### 4 [id number] #### [facility] [address] [place] [address] Dr. Dang Kirby Note: Comment Normal [facility] Comment on above: Result Comment: The Pap smear is a screening test designed to aid in the detection of premalignant and malignant conditions of the uterine cervix. It is not a diagnostic procedure and should not be used as the sole means of detecting cervical cancer. Both false-positive and false-negative reports do occur. . Performed at: WB Performed By: #### [id number] #### [facility] [address] [place] [address] Dr. Dang Kirby Performed by: Comment Normal [facility] Comment on above: Result Comment: Flavia Stanford, Crozer Operator (ASCP) Performed at: WB Performed By: #### 4 [id number] #### [facility] [address] [place] [address] Dr. Dang Kirby QC reviewed by: Comment Normal [facility] Comment on above: Result Comment: Valentino Victor, Crozer Operator Performed at: WB Performed By: #### 4 [id number] #### [facility] [address] [place] [address] Dr. Dang Kirby Specimen adequacy: Comment Normal [facility] Comment on above: Result Comment: Sati sfactory for evaluation. No endocervical component is identified. Performed at: WB Performed By: #### 4 [id number] #### [facility] [address] [place] [address] Dr. Dang Kirby MG MAMM DIAGNOSTIC 3D RAMA CA Don 04-29-2022 MG MAMM DIAGNOSTIC 3D RAMA CAD Patient: KARUNA DUMONTCelia Exam Date: 04/29/2022 : 1980 Gender:F Ordering : DR SANJEEV LOPEZ . Admission #: [id number] Family : Order #: [id number] CLICK HERE TO VIEW EXAM RADIOLOGY REPORT PROCEDURE: MAMMOGRAM DIAGNOSTIC 3D BILATERAL CAD, 04/29/2022, 10:05 ULTRASOUND BREAST RIGHT LIMITED, 04/29/2022, 11:04 COMPARISON: None. INDICATIONS: Pain of breast Calculator Name NCI Breast Cancer Risk Assessment Tool 5 Year Breast Cancer Risk Not Reported. Lifetime Breast Cancer Risk Not Reported. Personal Breast Cancer No Personal Ovarian Cancer No Treatments None Family Cancers None LOCATION: [facility] BREAST COMPOSITION: Scattered areas fibroglandular [...] M.D. on 04/29/2022 at 14:55 Normal [facility] US BREAST RIGHT LIMITEDon US BREAST RIGHT LIMITED Patient: KARUNA DUMONTCelia Exam Date: 04/29/2022 : 1980 Gender:F Ordering : DR SANJEEV LOPEZ . Admission #: [id number] Family : Order #: [id number] CLICK HERE TO VIEW EXAM RADIOLOGY REPORT PROCEDURE: MAMMOGRAM DIAGNOSTIC 3D BILATERAL CAD, 04/29/2022, 10:05 ULTRASOUND BREAST RIGHT LIMITED, 04/29/2022, 11:04 COMPARISON: None. INDICATIONS: Pain of breast Calculator Name NCI Breast Cancer Risk Assessment Tool 5 Year Breast Cancer Risk Not Reported. Lifetime Breast Cancer Risk Not Reported. Personal Breast Cancer No Personal Ovarian Cancer No Treatments None Family Cancers None LOCATION: [facility] BREAST COMPOSITION: Scattered areas fibroglandular [...] Peterson M.D. on 04/29/2022 at 14:55 Normal [facility] CT CERVICAL SPINE WO CONTRAS Ton 02-16-2022 [...] Oziel Fox MD 02/16/22 Final result Normal [facility] XR CLAVICLE LEFTon XR CLAVICLE LEFT [...] Miller Romo MD 02/16/22 Final result Normal [facility] XR SHOULDER LEFT (MIN 2 VIEW [...] Emil Flores MD 02/16/22 Final result Normal [facility] CBC with Auto Differentialon 01-03-2022 Absolute [facility]10 [facility] Absolute Lymph # 1.60 [facility] Absolute Cocke # 0.40 [facility] Basophils (Bld) [#/Vol] 0.00 10*3/uL [facility] Basophils/100 WBC (Bld) 1 % 0 - 2 % B ON [facility] Eosinophils/100 WBC (Bld) 2 % 1 - 4 % [facility] Hematocrit (Bld) [Volume fraction] 46.0 % 36 - 46 % [facility] Hemoglobin (Bld) [Mass/Vol] 15.4 g/dL 12 - 16 g/dL [facility] Interpretation and review of laboratory results Abnormal [facility] Lymphocytes/100 WBC (Bld) 29 % 24 - 44 % [facility] MCH (RBC) [Entitic mass] 28.6 pg 26 - 34 pg [facility] MCHC (RBC) [Mass/Vol] 33.4 g/dL 31 - 3 7 g/dL [facility] MCV (RBC) [Entitic vol] 85.9 fL 80 - 100 fL [facility] Monocytes/100 WBC (Bld) 8 % 2 - 11 % B ON [facility] Platelet distribution width (Bld) [Ratio] 14.1 % 12.5 - 15.4 % [facility] Platelet mean volume (Bld) [Entitic vol] 7.6 fL 6 - 12 fL [facility] Platelets (Bld) [#/Vol] 277 10*3/uL [facility] RBC (Bld) [#/Vol] 5.36 10*6/uL High 4 - 5.2 m/uL [facility] Segmented neutrophils/100 WBC (Bld) 60 % 36 - 66 % [facility] Segs Absolute 3.40 [facility] WBC (Bld) [#/Vol] 5.6 10*3/uL [facility] CBC with Diffon 01-03-2022 Abs. Basophil 0.00 k/uL Normal 0.0-0.2 [facility] Comment on above: Performed By: #### H CG, LIP, MG, CDP, CMPX #### [place] [address] Controller Repairer And Tester: Estevan Corcoran MD Abs.Neutrophil (Seg) 3.40 k/uL Normal 1.8-7.7 [facility] Comment on above: Performed By: #### H CG, LIP, MG, CDP, CMPX #### [place] [address] Controller Repairer And Tester: Estevan Corcoran MD Basophils/100 WBC (Bld) 1 % Normal 0-2 [facility] Comment on above: Performed By: #### H CG, LIP, MG, CDP, CMPX #### [place] [address] Controller Repairer And Tester: Estevan Corcoran MD Eosinophils (Bld) [#/Vol] 0.10 10*3/uL Normal 0.0-0.4 [facility] Comment on above: Performed By: #### H CG, LIP, MG, CDP, CMPX #### [place] [address] Controller Repairer And Tester: Estevan Corcoran MD Eosinophils/100 WBC (Bld) 2 % Normal 1-4 [facility] Comment on above: Performed By: #### H CG, LIP, MG, CDP, CMPX #### [place] [address] Controller Repairer And Tester: Estevan Corcoran MD Erythrocyte distribution width (RBC) [Ratio] 14.1 % Normal 12.5-15.4 [facility] Comment on above: Performed By: #### H CG, LIP, MG, CDP, CMPX #### [place] [address] Controller Repairer And Tester: Estevan Corcoran MD Hematocrit (Bld) [Volume fraction] 46.0 % Normal 36-46 [facility] Comment on above: Performed By: #### H CG, LIP, MG, CDP, CMPX #### [place] [address] Controller Repairer And Tester: Estevan Corcoran MD Hemoglobin (Bld) [Mass/Vol] 15.4 g/dL Normal 12.0-16.0 [facility] Comment on above: Performed By: #### H CG, LIP, MG, CDP, CMPX #### [place] [address] Controller Repairer And Tester: Estevan Corcoran MD Lymphocytes (Bld) [#/Vol] 1.60 10*3/uL Normal 1.0-4.8 [facility] Comment on above: Performed By: #### H CG, LIP, MG, CDP, CMPX #### [place] [address] Controller Repairer And Tester: Estevan Corcoran MD Lymphocytes/100 WBC (Bld) 29 % Normal 24-44 [facility] Comment on above: Performed By: #### H CG, LIP, MG, CDP, CMPX #### [place] [address] Controller Repairer And Tester: Estevan Corcoran MD MCH (RBC) [Entitic mass] 28.6 pg Normal 26-34 [facility] Comment on above: Performed By: #### H CG, LIP, MG, CDP, CMPX #### [place] [address] Controller Repairer And Tester: Estevan Corcoran MD MCHC (RBC) [Mass/Vol] 33.4 g/dL Normal 31-37 [facility] Comment on above: Performed By: #### H CG, LIP, MG, CDP, CMPX #### [place] [address] Controller Repairer And Tester: Estevan Corcoran MD MCV (RBC) [Entitic vol] 85.9 fL Normal 80-100 [facility] Comment on above: Performed By: #### H CG, LIP, MG, CDP, CMPX #### [place] [address] Controller Repairer And Tester: Estevan Corcoran MD Monocytes (Bld) [#/Vol] 0.40 10*3/uL Normal 0.1-1.2 [facility] Comment on above: Performed By: #### H CG, LIP, MG, CDP, CMPX #### [place] [address] Controller Repairer And Tester: Estevan Corcoran MD Monocytes/100 WBC (Bld) 8 % Normal 2-11 [facility] Comment on above: Performed By: #### H CG, LIP, MG, CDP, CMPX #### [place] [address] Controller Repairer And Tester: Estevan Corcoran MD Neutrophil (Seg) 60 % Normal 36-66 [facility] Comment on above: Performed By: #### H CG, LIP, MG, CDP, CMPX #### [place] [address] Controller Repairer And Tester: Estevan Corcoran MD Platelet mean volume (Bld) [Entitic vol] 7.6 fL Normal 6.0-12.0 [facility] Comment on above: Performed By: #### H CG, LIP, MG, CDP, CMPX #### [facility] [id number] [place], [place] [id number] Controller Repairer And Tester: Estevan Corcoran MD Platelets (Bld) [#/Vol] 277 10*3/uL Normal 140-450 [facility] Comment on above: Performed By: #### H CG, LIP, MG, CDP, CMPX #### [id number] [id number] Controller Repairer And Tester: Estevan Corcoran MD RBC (Bld) [#/Vol] 5.36 10*6/uL High 4.0-5.2 [facility] Comment on above: Performed By: #### H CG, LIP, MG, CDP, CMPX #### [address] [id number] Controller Repairer And Tester: Estevan Corcoran MD WBC (Bld) [#/Vol] 5.6 10*3/uL Normal 3.5-11.0 [facility] Comment on above: Performed By: #### H CG, LIP, MG, CDP, CMPX #### [id number] [place] [address] Controller Repairer And Tester: Estevan Corcoran MD CT ABDOMEN PELVIS W [...] Papito Mishra MD 01/03/22 Final result Normal [facility] CT ABDOMEN PELVIS W IV CONTR AST Additional Contrast? Noneon 01-03-2022 1. Fluid within smal l bowel loops and ascending colon which can be seen as sequela of a gastroenteritis. 2. Prior appendectomy. Prior cholecystectomy. 3. Fatty liver. 4. Mild colonic diverticulosis. 5. Small midline fat containing periumbilical hernia. 6. No clear evidence for small bowel obstruction. [facility] CONSOLIDATED EXAMINATION: CT OF [...] L5-S1. Mild levoscoliosis of the lumbar spine. [facility] Papito Mishra MD [...] No clear evidence for small bowel obstruction. [employer] Phone: Radiology Study observation (narrative) [employer] [facility] ([facility]) Phone: CT ABDOMEN PELVIS W IV CONTR AST Additional Contrast? NoneOrdered By: Papito Mishra on 01-03-2022 [employer] Phone: Comp Metabolic Pr/rfx MGon 1 0 ALT [Catalytic activity/Vol] 28 U/L Normal 5-33 [facility] Comment on above: Performed By: #### H CG, LIP, MG, CDP, CMPX #### [address] [id number] Controller Repairer And Tester: Estevan Corcoran MD (cont.) Normal [facility] Comment on above: Result Comment: Aver age GFR for 30-39 years old: 107 mL/min/1.73sq m Chronic Kidney Disease: <60 mL/min/1.73sq m Kidney failure: <15 mL/min/1.73sq m eGFR calculated using average adult body mass. Additional eGFR calculator available at: http://www.[employer]/multiple_crcl_2012.htm Performed By: #### H CG, LIP, MG, CDP, CMPX #### [place] [address] Controller Repairer And Tester: Estevan Corcoran MD Albumin [Mass/Vol] 4.3 g/dL Normal 3.5-5.2 [facility] Comment on above: Performed By: #### H CG, LIP, MG, CDP, CMPX #### [address] [place] [id number] Controller Repairer And Tester: Estevan Corcoran MD Albumin/Glob Ratio 1.4 Normal 1.0-2.5 [facility] Comment on above: Performed By: #### H CG, LIP, MG, CDP, CMPX #### [address] [address] Controller Repairer And Tester: Estevan Corcoran MD Alkaline Phos 105 U/L High 35-104 [facility] Comment on above: Performed By: #### H CG, LIP, MG, CDP, CMPX #### [place] [address] Controller Repairer And Tester: Estevan Corcoran MD Anion gap [Moles/Vol] 13 mmol/L Normal 9-17 [facility] Comment on above: Performed By: #### H CG, LIP, MG, CDP, CMPX #### [place] [address] Controller Repairer And Tester: Estevan Corcoran MD AST [Catalytic activity/Vol] 26 U/L Normal <32 [facility] Comment on above: Performed By: #### H CG, LIP, MG, CDP, CMPX #### [place] [address] Controller Repairer And Tester: Estevan Corcoran MD Bilirubin [Mass/Vol] 0.3 mg/dL Normal 0.3-1.2 [facility] Comment on above: Performed By: #### H CG, LIP, MG, CDP, CMPX #### [place] [address] Controller Repairer And Tester: Estevan Corcoran MD Calcium [Mass/Vol] 8.7 mg/dL Normal 8.6-10.4 [facility] Comment on above: Performed By: #### H CG, LIP, MG, CDP, CMPX #### [place] [address] Controller Repairer And Tester: Estevan Corcoran MD Chloride [Moles/Vol] 104 mmol/L Normal 98-107 [facility] Comment on above: Performed By: #### H CG, LIP, MG, CDP, CMPX #### [place] [id number] Controller Repairer And Tester: Estevan Corcoran MD CO2 [Moles/Vol] 21 mmol/L Normal 20-31 [facility] Comment on above: Performed By: #### H CG, LIP, MG, CDP, CMPX #### [place] [address] Controller Repairer And Tester: Estevan Corcoran MD Creatinine [Mass/Vol] 0.60 mg/dL Normal 0.50-0.90 [facility] Comment on above: Performed By: #### H CG, LIP, MG, CDP, CMPX #### [place] [address] Controller Repairer And Tester: Estevan Corcoran MD GFR, Amer >60 Normal >60 [facility] Comment on above: Performed By: #### H CG, LIP, MG, CDP, CMPX #### [place] [address] Controller Repairer And Tester: Estevan Corcoran MD GFR,non Amer >60 Normal >60 [facility] Comment on above: Performed By: #### H CG, LIP, MG, CDP, CMPX #### [place] [address] Controller Repairer And Tester: Estevan Corcoran MD Glucose [Mass/Vol] 105 mg/dL High 70-99 [facility] Comment on above: Performed By: #### H CG, LIP, MG, CDP, CMPX #### [place] [address] Controller Repairer And Tester: Estevan Corcoran MD Potassium [Moles/Vol] 3.5 mmol/L Low 3.7-5.3 [facility] Comment on above: Performed By: #### H CG, LIP, MG, CDP, CMPX #### [place] [address] Controller Repairer And Tester: Estevan Corcoran MD Protein [Mass/Vol] 7.4 g/dL Normal 6.4-8.3 [facility] Comment on above: Performed By: #### H CG, LIP, MG, CDP, CMPX #### [facility] [id number] [place] [address] Controller Repairer And Tester: Estevan Corcoran MD Sodium [Moles/Vol] 138 mmol/L Normal 135-144 [facility] Comment on above: Performed By: #### H CG, LIP, MG, CDP, CMPX #### [place] [id number] [place] [address] Controller Repairer And Tester: Estevan Corcoran MD Urea nitrogen [Mass/Vol] 12 mg/dL Normal 6-20 [facility] Comment on above: Performed By: #### H CG, LIP, MG, CDP, CMPX #### [place] [id number] [place] [address] Controller Repairer And Tester: Estevan Corcoran MD Comprehensive Metabolic Pane l w/ Reflex to MGon 01-03-2022 Albumin [Mass/Vol] 4.3 g/dL 3.5 - 5.2 g/dL [facility] Albumin/Globulin [Mass ratio] 1.4 {ratio} 1 - 2.5 [facility] ALP (Bld) [Catalytic activity/Vol] 105 U/L High 35 - 104 U/L [facility] ALT [Catalytic activity/Vol] 28 U/L 5 - 33 U/L [facility] Anion gap [Moles/Vol] 13 mmol/L 9 - 17 mmol/L [facility] AST [Catalytic activity/Vol] 26 U/L NINF - 32 U/L [facility] Bilirubin [Mass/Vol] 0.3 mg/dL 0.3 - 1 .2 mg/dL [facility] Calcium [Mass/Vol] 8.7 mg/dL 8.6 - 10. 4 mg/dL [facility] Chloride [Moles/Vol] 104 mmol/L 98 - 10 7 mmol/L [facility] CO2 [Moles/Vol] 21 mmol/L 20 - 31 mmol/L [facility] Creatinine [Mass/Vol] 0.6 mg/dL 0.5 - 0.9 mg/dL [facility] GFR >60 60 - PI NF mL/min [facility] GFR Non- >60 60 - PINF mL/min [facility] GFR/1.73 sq M.predicted MDRD (S/P/Bld) [Vol rate/Area] [facility] Comment on above: Average GFR for 30-3 9 years old: 107 mL/min/1.73sq m Chronic Kidney Disease: <60 mL/min/1.73sq m Kidney failure: <15 mL/min/1.73sq m eGFR calculated using average adult body mass. Additional eGFR calculator available at: http://www.[employer]/multiple_crcl_2012.htm Glucose [Mass/Vol] 105 mg/dL High 70 - 99 mg/dL [facility] Interpretation and review of laboratory results Abnormal [facility] Potassium [Moles/Vol] 3.5 mmol/L Low 3.7 - 5.3 mmol/L [facility] Protein [Mass/Vol] 7.4 g/dL 6.4 - 8.3 g/dL [facility] Sodium [Moles/Vol] 138 mmol/L 135 - 144 mmol/L [facility] Urea nitrogen (BldV) [Mass/Vol] 12 mg/dL 6 - 20 mg/dL [facility] HCG Qualitative, Serumon hCG Qual Negative NEGATIVE [facility] Comment on above: Specimens with hCG l evels near the threshold of the test (25 mIU/mL) may give a negative or indeterminate result. In such cases, another test should be performed with a new specimen in 48-72 hours. If early is suspected clinically in this setting, correlation with quantitative serum b-hCG level is suggested. [employer] has confirmed the use of plasma for this test. This has not been cleared or approved by the U.S. Food and Drug Administration. The FDA has determined that such clearance is not necessary. [facility] HCG Screen, Bloodon 01-04-20 HCG Screen, Blood Negative Normal NEG [facility] Comment on above: Result Comment: Spec imens with hCG levels near the threshold of the test (25 mIU/mL) may give a negative or indeterminate result. In such cases, another test should be performed with a new specimen in 48-72 hours. If early is suspected clinically in this setting, correlation with quantitative serum b-hCG level is suggested. [facility] has confirmed the use of plasma for this test. This has not been cleared or approved by the U.S. Food and Drug Administration. The FDA has determined that such clearance is not necessary. Performed By: #### H CG, LIP, MG, CDP, CMPX #### [place] [id number] Controller Repairer And Tester: Estevan Corcoran MD Lipaseon 01-03-2022 Lipase [Catalytic activity/Vol] 20 U/L Normal 13-60 [facility] Comment on above: Performed By: #### H CG, LIP, MG, CDP, CMPX #### [place] [id number] Controller Repairer And Tester: Estevan Corcoran MD Lipase [Catalytic activity/Vol] 20 U/L 13 - 60 U/L [facility] Magnesiumon 01-03-2022 Magnesium [Mass/Vol] 2.1 mg/dL Normal 1.6-2.6 [facility] Comment on above: Performed By: #### H CG, LIP, MG, CDP, CMPX #### [place] [id number] Controller Repairer And Tester: Estevan Corcoran MD Magnesium [Mass/Vol] 2.1 mg/dL 1.6 - 2 .6 mg/dL [facility] Microscopic Urinalysison Bacteria, UA MANY Abnormal None [facility] Epithelial Cells UA TOO NUMEROUS TO COUNT [facility] Interpretation and review of laboratory results Abnormal [facility] Other Observations UA Utilizing a urinal ysis as the only screening method to exclude a potential uropathogen can be unreliable in many patient populations. Rapid screening tests are less sensitive than culture and if UTI is a clinical possibility, culture should be considered despite a negative urinalysis. Abnormal NOT REQ. [facility] RBC, UA 2 TO 5 [facility] WBC, UA 2 TO 5 [facility] UA w/Reflex Cultureon 2021 Bilirubin, SemiQt,Ur Negative Normal NEG [facility] Comment on above: Performed By: #### U AX [place]ICAO ####[place] [address] Lab Director: Estevan Corcoran MD Blood, Urine LARGE Abnormal NEG [facility] Comment on above: Performed By: #### U AX [place]ICAO ####[place] [address] Lab Director: Estevan Corcoran MD Clarity (U) Cloudy Abnormal CLEAR [facility] Comment on above: Result Comment: FOUL ODOR Performed By: #### U AX, UMICAO ####[place] [address] Lab Director: Estevan Corcoran MD Color (U) Yellow Normal YEL [facility] Comment on above: Performed By: #### U AX UMICAO ####[place] [address] Lab Director: Estevan Corcoran MD Glucose Ql (U) Negative Normal NEG [facility] Comment on above: Performed By: #### U AX UMICAO ####[place] [address] Lab Director: Estevan Corcoran MD Ketones Ql (U) Negative Normal NEG [facility] Comment on above: Performed By: #### U AX, UMICAO ####[place] [address] Lab Director: Estevan Corcoran MD Leukocyte esterase Test strip Ql (U) Negative Normal NEG [facility] Comment on above: Performed By: #### U AX, UMICAO ####[place] [address] Lab Director: Estevan Corcoran MD Nitrite,Ur Negative Normal NEG [facility] Comment on above: Performed By: #### U AX, UMICAO ####[place] [address] Lab Director: Estevan Corcoran MD PH,Ur 6.0 Normal 5.0-8.0 [facility] Comment on above: Performed By: #### U AX, UMICAO ####[place] [address] Lab Director: Estevan Corcoran MD Protein Ql (U) Negative Normal NEG [facility] Comment on above: Performed By: #### U AX, UMICAO ####[place] [address] Lab Director: Estevan Corcoran MD Spec. Patterson,Ur 1.108 High 1.005-1.03 0 [facility] Comment on above: Result Comment: POST IV CONTRAST Performed By: #### U AX, UMICAO ####[place] [id number] lab Director: Estevan Corcoran MD Urobilinogen,Ur Normal Normal NORM [facility] Comment on above: Performed By: #### U GEORGES GILMAN ####[place] [address] lab Director: Estevan Corcoran MD Urinalysis with Reflex to Cu ltureon 01-03-2022 Bilirubin Urine Negative NEGATIVE [facility] Color, UA Yellow Yellow [facility] Glucose, Ur Negative NEGATIVE [facility] Interpretation and review of laboratory results Abnormal [facility] Ketones Ql (U) Negative NEGATIVE [facility] Leukocyte esterase Test strip Ql (U) Negative NEGATIVE [facility] Nitrite, Urine Negative NEGATIVE [facility] pH, UA 6.0 5 - 8 [facility] Protein, UA Negative NEGATIVE [facility] Specific Patterson, UA 1.108 High 1.005 - 1.03 [facility] Comment on above: POST IV CONTRAST Turbidity UA Cloudy Abnormal Clear [facility] Comment on above: FOUL ODOR Urine Hgb LARGE Abnormal NEGATIVE [facility] Urobilinogen, Urine Normal Normal [facility] Urinalysis,Microon 2 Bacteria MANY Abnormal NONE [facility] Comment on above: Performed By: #### GEORGES MEDINA ####[place] [address] lab Director: Estevan Corcoran MD Epithelial cells LM Ql (Urine sed) TOO NUMEROUS TO COUNT Normal 0-5 [facility] Comment on above: Performed By: #### GEORGES MEDINA ####[place] [id number] lab Director: Estevan Corcoran MD Other Observations Utilizing a urinalys is as the only screening method to exclude a potential Abnormal NREQ [facility] Comment on above: Result Comment: urop athogen can be unreliable in many patient populations. Rapid screening tests are less sensitive than culture and if UTI is a clinical possibility, culture should be considered despite a negative urinalysis. Performed By: #### U AX, UMICAO ####[address] [id number] Lab Director: Estevan Corcoran MD Urine RBC's 2 TO 5 Normal 0-2 [facility] Comment on above: Performed By: #### U AX, UMICAO ####[address] [address] lab Director: Estevan Corcoran MD Urine WBC's 2 TO 5 Normal 0-5 [facility] Comment on above: Performed By: #### U AX, UMICAO ####[address] [address] lab Director: Estevan Corcoran MD CT LUMBAR [...] leg pain. Follow-up MRI may be helpful. [facility]SOL[facility] EXAMINATION: CT OF [...] SOFT TISSUES/RETROPERITONEUM: No paraspinal mass is seen. [facility] Boyd Beatty MD - [...] leg pain. Follow-up MRI may be helpful. [employer] Work Phone: Radiology Study observation (narrative) [employer] Work Phone: CT LUMBAR SPINE WO CONTRASTO rdered By: Boyd Beatty on 08-19-2021 [employer] Work Phone: Vital Signs Date Time Vital Sign Value Performing Clinician Elena melton 06-12-2023 10:05-0400 Body height 165.1 cm Rohit Metzger MD Work Phone: [employer] 06-12-2023 10:05-0400 Body mass index (BMI) [Ratio] 38.94 kg/m2 Rohit Metzger MD Work Phone: [employer] 06-12-2023 10:05-0400 Body weight 106.14 kg Rohit [facility]zger MD [facility] 05-16-2023 13:48-0500 Body height 165.1 cm Rohit [facility]zger MD Work Phone: [facility] 05-16-2023 13:48-0500 Body mass index (BMI) [Ratio] 38.94 kg/m2 Rohit Metzger MD Work Phone: [employer] 05-16-2023 13:48-0500 Body weight 106.14 kg Rohit Metzger MD Work Phone: [facility] 01-02-2023 10:00-0400 Body height 162.56 cm Johnathon Winter Other [employer] Other 01-02-2023 10:00-0400 Body mass index (BMI) [Ratio] 42.91 kg/m2 Johnathon Winter Other [employer] Other 01-02-2023 10:00-0400 Body weight 113.4 kg Johnathon Winter Other [employer] Other 01-02-2023 10:00-0400 Diastolic blood pressure 82 mm[Hg] Johnathon Winter Other [employer] Other 01-02-2023 10:00-0400 Systolic blood pressure 126 mm[Hg] Johnathon Winter Other [employer] Other 2022 11:00-0400 Body height 162.56 cm Johnathon Winter Other [employer] Other 2022 11:00-0400 Body mass index (BMI) [Ratio] 44.56 kg/m2 Johnathon Winter Other [employer] Other 2022 11:00-0400 Body weight 117.75 kg Johnathon Winter Other [employer] Other 2022 11:00-0400 Diastolic blood pressure 101 mm[Hg] Johnathon Winter Other [employer] Other 2022 11:00-0400 SaO2% (BldA) [Mass fraction] 100 % Johnathon Winter Other [employer] Other 2022 11:00-0400 Systolic blood pressure 138 mm[Hg] Johnathon Winter Other [employer] Other 10-11-2022 18:45-0400 Body height 165.1 cm Roxie Garcia MD Work Phone: [employer] 10-11-2022 18:45-0400 Body mass index (BMI) [Ratio] 43.93 kg/m2 Roxie Garcia MD Work Phone: [facility] [employer] 10-11-2022 18:45-0400 Body temperature 99 [degF] Roxie Garcia MD Work Phone: [facility] [employer] 10-11-2022 18:45-0400 Body weight 119.75 kg Roxie Garcia MD Work Phone: [facility] [employer] 10-11-2022 18:45-0400 Diastolic blood pressure 108 mm[Hg] Roxie Garcia MD Work Phone: [facility] [employer] 10-11-2022 18:45-0400 Heart rate 87 /min Roxie Garcia MD Work Phone: [facility] [employer] 10-11-2022 18:45-0400 Respiratory rate 16 /min Roxie Garcia MD Work Phone: [facility] [employer] 10-11-2022 18:45-0400 SaO2% (BldA) [Mass fraction] 98 % Roxie Garcia MD Work Phone: [employer] 10-11-2022 18:45-0400 Systolic blood pressure 160 mm[Hg] Roxie Garcia MD Work Phone: [employer] 01-03-2022 13:54-0400 Diastolic blood pressure 95 mm[Hg] Teo Thomas DO [employer] 01-03-2022 13:54-0400 Heart rate 61 /min Teo Agueroan DO [employer] 01-03-2022 13:54-0400 SaO2% (BldA) [Mass fraction] 100 % Teo Thomas DO [employer] 01-03-2022 13:54-0400 Systolic blood pressure 142 mm[Hg] Teo Thomas DO [employer] 01-03-2022 11:46-0400 Body height 165.1 cm Teo Agueroan DO [facility] 01-03-2022 11:46-0400 Body mass index (BMI) [Ratio] 44.1 kg/m2 Teo Froylanfman DO [facility] 01-03-2022 11:46-0400 Body temperature 97.7 [degF] Teo Agueroan DO [facility] 01-03-2022 11:46-0400 Body weight 120.2 kg Toe Thomas DO [facility] 01-03-2022 11:46-0400 Respiratory rate 16 /min Teo Agueroan DO [facility] 08-19-2021 18:03-0400 Diastolic blood pressure 98 mm[Hg] Radha Sanders MD Work Phone: [facility] [employer] 08-19-2021 18:03-0400 Heart rate 92 /min Radha Sanders MD Work Phone: [facility] [employer] 08-19-2021 18:03-0400 Respiratory rate 16 /min Radha Sanders MD Work Phone: [facility] [employer] 08-19-2021 18:03-0400 SaO2% (BldA) [Mass fraction] 96 % Radha Sanders MD Work Phone: [facility] [employer] 08-19-2021 18:03-0400 Systolic blood pressure 145 mm[Hg] Radha Sanders MD Work Phone: [facility] [employer] 08-19-2021 16:28-0400 Body height 165.1 cm Radha Sanders MD Work Phone: [facility] [employer] 08-19-2021 16:28-0400 Body mass index (BMI) [Ratio] 45.76 kg/m2 Radha Sanders MD Work Phone: [facility] [employer] 08-19-2021 16:28-0400 Body temperature 98.6 [degF] Radha Sanders MD Work Phone: [facility] [employer] 08-19-2021 16:28-0400 Body weight 124.74 kg Radha Sanders MD Work Phone: [facility] Encounters Encounter Date Encounter Type Care Provider Facility Start: 12-06-2023 End: 12-06-2023 Departed Referred DO Sanjeev Jessica Work Phone: [facility] [place] Work Phone: Start: 12-06-2023 End: 12-06-2023 ambulatory SANJEEV JESSICA Not Available Start: 11-29-2023 Non-patient / Non-visit DO Cor ey Jessica Work Phone: [facility] Work Phone: Start: 11-29-2023 End: 11-29-2023 ambulatory SANJEEV JESSICA Not Available Start: 11-22-2023 End: 11-22-2023 ambulatory [facility] Start: 11-20-2023 End: 11-20-2023 ambulatory Christiano Rivera MD Facility:[facility] [place] Start: 11-13-2023 End: 11-13-2023 ambulatory Christiano Rivera MD Facility:[facility] [place] Start: 10-25-2023 Non-patient / Non-visit DO Cor ey Jessica Work Phone: [facility] Work Phone: Start: 08-23-2023 End: 08-23-2023 ambulatory KELI Resendez Facility:[facility] Start: 08-02-2023 End: 08-02-2023 ambulatory ROBERT URRUTIA Not Available Start: 07-31-2023 End: 07-31-2023 ambulatory Bhavin Montgomery MD Facility:[facility] [place] Start: 07-19-2023 End: 07-19-2023 ambulatory SANJEEV JESSICA Not Available Start: 07-17-2023 End: 07-17-2023 ambulatory Bhavin Montgomery MD Facility:[facility] Start: 06-26-2023 End: 06-26-2023 ambulatory Bhavin Montgomery MD Facility:[facility] Start: 06-15-2023 End: 06-15-2023 ambulatory SANJEEV JESSICA Not Available Start: 06-12-2023 End: 06-12-2023 ambulatory [facility] Comment on above: Lumbar radiculopathy , chronic (Primary Dx); Herniated lumbar intervertebral disc Start: 06-12-2023 End: 06-12-2023 Office outpatient visit 10 minutes Rohit Smith MD Work Phone: [facility] Comment on above: 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) Start: 06-06-2023 ambulatory RENY NO [facility] Start: 05-24-2023 Orders Only Reny barlow COLD STRIP FEEDER-HOSPITAL PRODUCT SPECIALIST Work Phone: [facility] Comment on above: Herniated lumbar int ervertebral disc (Primary Dx); Lumbar radiculopathy, chronic Start: 05-23-2023 End: 05-23-2023 ambulatory Tee Peterson [facility] Work Phone: Start: 05-23-2023 End: 05-23-2023 Departed Referred MD Tee Peterson Work Phone: [facility] [place] [facility] Start: 05-19-2023 End: 05-19-2023 ambulatory ERNY [facility] Start: 05-16-2023 End: 05-16-2023 ambulatory [facility] Start: 05-16-2023 End: 05-16-2023 Office outpatient new 30 minutes Rohit Smith MD Work Phone: [facility] Comment on above: 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 Professional [employer] Work Phone: Start: 05-04-2023 End: 05-04-2023 Office outpatient visit 10 minutes Oswaldo Dee REFUSE LABORER Work Phone: [facility] Comment on above: 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); Pain in finger of right hand Start: 05-04-2023 End: 05-04-2023 ambulatory RENY NO [facility] Start: 05-01-2023 End: 05-01-2023 ambulatory SANJEEV العليZIO Not Available Start: 04-19-2023 End: 04-19-2023 ambulatory Scottie Lyn Other [employer] Other Start: 04-19-2023 Telephone encounter Scottie Lyn [facility] Start: 04-14-2023 End: 04-14-2023 Orders Only Serina Rodriguez [facility] Comment on above: Back pain, unspecifi ed back location, unspecified back pain laterality, unspecified chronicity (Primary Dx) Start: 04-12-2023 End: 04-12-2023 ambulatory Johnathon Winter Other [employer] Other Start: 04-12-2023 Telephone encounter Johnathon Winter [facility] Start: 04-11-2023 End: 04-11-2023 ambulatory Johnathon Winter Other [employer] Other Start: 04-11-2023 Telephone encounter Johnathon Winter [facility] Start: 04-10-2023 End: 04-10-2023 ambulatory Johnathon Winter Other [employer] Other Start: 04-10-2023 Encounter by compute r link Johnathon Winter [facility] Start: 03-16-2023 End: 03-16-2023 ambulatory OSWALDO DEE Not Available Start: 03-09-2023 End: 03-09-2023 ambulatory Johnathon Jay Maggy Facility:[facility] Start: 01-30-2023 End: 01-30-2023 ambulatory Johnathon Winter Other [employer] Other Start: 01-30-2023 Telephone encounter Johnathon Winter [facility] Start: 01-02-2023 End: 01-02-2023 ambulatory Johnathon Winter Other [employer] Other Start: 01-02-2023 Office outpatient vi sit 15 minutes Johnathon Winter [facility] Start: 12-09-2022 End: 12-09-2022 ambulatory Johnathon Winter Other [employer] Other Start: 12-09-2022 Telephone encounter Johnathon Winter [facility] Start: 12-08-2022 End: 12-08-2022 ambulatory Johnathon Winter Other [employer] Other Start: 12-08-2022 Telephone encounter Johnathon Winter [facility] Start: 2022 End: 2022 ambulatory Johnathon Winter Other [employer] Other Start: 2022 Office outpatient ne w 30 minutes Johnathon Winter [facility] Start: 10-11-2022 End: 10-11-2022 Emergency department patient visit JOHNATHON WINTER [facility] Start: 10-11-2022 End: 10-11-2022 Emergency department patient visit Roxie Garcia MD Work Phone: [facility] Emergency Department Comment on above: Sprain of right ankl e, unspecified ligament, initial encounter (Primary Dx) Start: 07-11-2022 End: 07-11-[address] SANJEEV LOPEZ . Facility:[facility] Start: 04-29-2022 End: 04-30-[address] SANJEEV LOPEZ . Facility:[facility] Start: 02-16-2022 End: 02-16-2022 Emergency department patient visit JOHNATHON WINTER [facility] Start: 01-03-2022 End: 01-03-2022 Emergency department patient visit JOHNATHON WINTER [facility] Start: 01-03-2022 End: 01-03-2022 Emergency department patient visit Teo Thomas DO [facility] ED Comment on above: Gastroenteritis (Neetu emil Dx) Start: 08-19-2021 End: 08-19-2021 Emergency department patient visit Radha Sanders MD Work Phone: [facility] Comment on above: Herniated lumbar int ervertebral disc (Primary Dx) Procedures Date Procedure Procedure Detail Performing Clinician Start: 06-12-2023 Follow-up visit Follow-up ROHIT CAMEJO V Start: 10-11-2022 Radex ankle complete minimum 3 views Bailee Lew COLD STRIP FEEDER - HOSPITAL PRODUCT SPECIALIST Work Phone: Start: 01-03-2022 Urinalysis microscop ic only Zachariah Foster COLD STRIP FEEDER - REFUSE LABORER Work Phone: Start: 01-03-2022 Urnls dip stick/tabl et rgnt auto w/o microscopy Zachariah Foster COLD STRIP FEEDER - REFUSE LABORER Work Phone: Start: 01-03-2022 Ct abdomen & pelvis w/contrast material Zachariah Foster COLD STRIP FEEDER - REFUSE LABORER Work Phone: Start: 01-03-2022 Assay of lipase Zachariah Foster COLD STRIP FEEDER - REFUSE LABORER Work Phone: Start: 12-01-2021 Adult depression screening assessment Serina GARCIAMina Start: 08-19-2021 Ct lumbar spine w/o contrast material Radha Sanders MD Work Phone: Plan of Treatment Date Care Activity Detail Author Start: 06-11-2024 Adult BMI Screening Adult BMI Screen ing [facility] Start: 06-11-2024 Tobacco Screening Tobacco Screening [facility] Start: 05-16-2024 Adult BMI Screening Adult BMI Screen ing [facility] Start: 05-16-2024 Tobacco Screening Tobacco Screening [facility] Start: 05-08-2024 Adult BMI Screening Adult BMI Screen ing [facility] Start: 05-08-2024 Tobacco Screening Tobacco Screening [facility] Start: 04-14-2024 Adult BMI Screening Adult BMI Screen ing [facility] Start: 04-14-2024 Tobacco Screening Tobacco Screening [facility] Start: 07-19-2023 End: 07-19-2023 Patient encounter procedure 07/19/2023 1:45 PM EDT Office Visit [facility] [address] [place] [id number] Vishal Martin DO [address] [place] [address] [facility] Start: 07-17-2023 End: 07-17-2023 Patient encounter procedure 07/17/2023 10:00 AM EDT Office Visit [facility] [address] [place] [id number] Sanjeev Lopez DO [address] [place] [address] [facility] Start: 06-12-2023 End: 06-12-2023 Patient encounter procedure 06/12/2023 10:05 AM EDT Office Visit [facility] [address] [place] [address] Rohit Smith MD [address] [place] [address] [facility] Start: 05-19-2023 End: 05-19-2023 Patient encounter procedure 05/19/2023 10:15 AM EST Appointment [facility] [address] [place] [phone] [facility] Start: 05-16-2023 End: 05-16-2023 Patient encounter procedure 05/16/2023 1:45 PM EST Office Visit [facility] [address] [facility] [address] [place] [address] Rohit Smith MD [address] [place] [address] [facility] Start: 05-08-2023 End: 05-08-2023 Patient encounter procedure 05/08/2023 1:30 PM EST Office Visit [facility] [address] [place] [address] Reny No, COLD STRIP FEEDER-HOSPITAL PRODUCT SPECIALIST [address] [facility] [address] [place] [address] [facility] Start: 04-14-2023 End: 04-14-2024 XR Lumbar spine Views W flexion and W extension X-ray spine lumbar ap, lateral, flexion and extension only Imaging Routine Back pain, unspecified back location, unspecified back pain laterality, unspecified chronicity Expected: 04/14/2023, Expires: 04/14/2024 [facility] Work Phone: Comment on above: Expected: 04/14/2023 , Expires: 04/14/2024 Start: 12-02-2022 Influenza vaccination Influenza Vacc ine [facility] Start: 12-01-2022 Depression Screening Depression Scre ening [facility] Start: 11-01-2022 Influenza vaccination Flu vaccine (# 1) [facility] Start: 09-03-2022 Adult BMI Follow Up Plan Adult BMI Follow Up Plan [facility] Start: 12-02-2021 Influenza vaccination Flu vacc ine (Season Ended) [facility] Start: 11-01-2021 Influenza vaccination Flu vaccine (# 1) [facility] Start: 2017 Diabetes screen Diabetes screen [facility] Start: 2012 Screening for malignant neoplasm of cervix [facility] Start: 12-01-2003 Screening for malignant neoplasm of cervix Pap smear [facility] Start: 2001 DTaP,Tdap and Td Vaccines (1 - Tdap) DTaP,Tdap and Td Vaccines (1 - Tdap) [facility] Start: 2001 DTaP/Tdap/Td vaccine (1 - Tdap) DTaP/Tdap/Td vaccine (1 - Tdap) [facility] Start: 2000 Hepatitis C screening Hepatitis C sc reen [facility] Start: 1994 Depression Screen Depression Screen [facility] Start: 12-01-1987 COVID-19 Vaccine (1) COVID-19 Vaccin e (1) [facility] Start: 12-01-1983 Varicella vaccine (1 of 2 - 2-dose childhood series) Varicella vaccine (1 of 2 - 2-dose childhood series) [facility] Start: 06-01-1983 COVID-19 Vaccine (#1) COVID-19 Vacci ne (#1) [facility] Payers Date Payer Category Payer Self-pay 2022 Unknown [id number] 2022 Unknown [id number] 2020 Unknown [id number] 1.2.8 [id number] 1982 Unknown [id number] 2.16.84 0.1.249168.3.579.2.593 1982 Unknown [id number] 2.16.84 0.1.619199.3.579.2.593 1982 Unknown [id number] 2.16. 840.1.030569.3.579.2.175 1982 Unknown [id number] 2.16. 840.1.528166.3.579.2.175 1982 Unknown [id number] 2.16. 840.1.918193.3.579.2.175 1982 Unknown [id number] 2.16.8 40.1.480519.3.579.2.1286 1982 Unknown [id number] 2.16.8 40.1.596913.3.579.2.1286 1982 Unknown [id number] 2.16.84 0.1.232141.3.579.2.1286 1982 Unknown [id number] 2.16.8 40.1.365243.3.579.2.718 1982 Unknown [id number] 2.16.8 40.1.072110.3.579.2.8 1982 Unknown [id number] 2.16.8 40.1.049929.3.579.2.1286 1982 Unknown [id number] 2.16.8 40.1.946256.3.579.2.1285 1982 Unknown [id number] 2.16.8 40.1.287565.3.579.2.1286 1982 Unknown [id number] 2.16.8 40.1.198223.3.579.2.6 1982 Unknown [id number] 2.16. 840.1.220961.3.579.2.196 1982 Unknown [id number] 2.16 840.1.036034.3.579.2.196 1982 Unknown [id number] 2.16. 840.1.910797.3.579.2. 1982 Unknown [id number] 2.16. 840.1.142827.3.579.2.196 1982 Unknown [id number] 2.16. 840.1.569469.3.579.2. 1982 Unknown [id number] 2.16.84 0.1.497787.3.579.2.1259 1982 Unknown [id number] 2.16.84 0.1.056447.3.579.2.1259 1982 Unknown [id number] 2.16.84 0.1.032987.3.579.2.9 1982 Unknown [id number] 2.16.84 0.1.159969.3.579.2.1259 1982 Unknown [id number] 2.16.84 0.1.203603.3.579.2.9 1982 Unknown [id number] 2.16.84 0.1.077776.3.579.2.1259 1982 Unknown [id number] 2.16.84 0.1.053623.3.579.2.9 1982 Unknown [id number] 2.16.840 .1.973326.3.579.2.1259 1959 Unknown [id number] Unknown [id number] 2.16.8 40.1.512028.3.579.2.531 Social History Date Type Detail Facility Start: 06-15-2015 End: 03-31-2022 Tobacco smoking status [facility] Never smoked tobacco [facility] Start: 06-15-2015 End: 03-31-2022 Tobacco use and exposure Smokeless tobacco non-user [facility] Phone: Start: 08-19-2021 End: 06-12-2023 Alcohol intake Current non-drinker of alcohol (finding) [facility] Phone: Start: 05-14-2020 End: 08-19-2021 Alcohol intake [facility] Start: 06-15-2015 History SDOH Alcohol Comment rarely [facility] Phone: Start: 1980 Sex Assigned At Not on file [facility] Phone: Start: 08-09-2021 End: 01-03-2022 Exposure to SARS-CoV-2 (event) Not sure [facility] Phone: History of tobacco use Passive smoker [facility] Phone: Start: 05-14-2020 End: 04-14-2023 Sex Assigned At [facility] Adolescent depressio n screening assessment 0 [facility] Start: 05-04-2023 Alcohol intake Ex-drinker (finding) [facility] Start: 10-09-2022 Alcohol Comment Alcohol: 1 or 2 drinks on typical day/monthly or less. Caffeine: 1-2 cups/day tea [facility] Start: 1980 Sex Assigned At Female [facility] Start: 09-21-2022 Gender identity Identifies as female gender (finding) [facility] Start: 09-21-2022 Sexual orientation Heterosexual (finding) [facility] Clinical Notes 08-19-2021 to 08-23-2023 Rohit Metzger [...] wine (148 mL (more content not included)... [facility] 06-12-2023 History of Present illness Narrative 06/12/2023 [...] take another few months to subside. Recommended [id number]-[id number] pain relievers as needed. She is content [...] of the aforementioned history prepared by the [facility] provider, and I personally performed the [...] any severe symptoms. documented in this encounter [facility] 05-16-2023 History of Present illness Narrative [facility] Chief Complaint: [...] a snap. She initially followed up with [facility] and was diagnosed with right [...] External notes reviewed: I reviewed notes from [facility] orthopaedics. Review of test/study reports: I reviewed an x-ray obtained of the right ring finger. There were no acute osseous abnormality such as fracture dislocation. My personal interpretation of tests: I personally viewed and interpreted X-rays from [facility] as above. Xrays done in office today: None. Assessment: 1. Mallet deformity of right ring finger - [facility] - [place], [place] 2. Finger injury, right, initial encounter - [facility] - [place], [place] Plan: I discussed treatment options with [...] with her flexion. documented in this encounter [facility] 05-10-2023 Evaluation note Encounter Date Diagnosis Assessment Notes May, Adult ADHD (attention deficit hyperactivity disorder) (ICD-10 - F90.9) [facility] Other 02-01-2024 History of Present illness Narrative* [...] finger for about 2 weeks. Went to [facility]/09 due to having numbness in finger and unable to straighten it. Had XR at . On 03/13, pt went to [facility] and had another XR. Unable to get into hand specialist at [facility] until May 16. Continues to have [...] crooked. PT is RT handed Prior [place]: [facility] 03/09/23, XR, Splint, [facility] UC, XR 03/13/23, Ice, Heat, IBU, [facility] ALLERGIES: No Known Allergies HOME MEDICATIONS: Current Outpatient Medications Medication Instructions amphetamine-dextroamphetamine (Adderall) 20 MG tablet 1 TABLET ORALLY MID DAY 30 DAYS cyclobenzaprine (Flexeril) 10 MG tablet PLEASE SEE ATTACHED FOR DETAILED DIRECTIONS fluconazole (DIFLUCAN) 100 mg, Oral, Daily nystatin (Mycostatin) 899286 UNIT/GM powder APPLY TO AFFECTED AREA TOPICALLY [...] normal Pronation: normal Supination: normal Muscle Strength Diagrammer: 3/5 Other Erythema: absent Pulse: present Comments: [...] develop for requiring urgent evaluation. Oswaldo Dee COLD STRIP FEEDER-HOSPITAL PRODUCT SPECIALIST documented in [facility] encounter[facility] [id number] Evaluation note* Encounter Date Diagnosis Assessment Notes Treatment Notes Treatment Clinical Notes Apr, Adult ADHD (attentio n deficit hyperactivity disorder) (ICD-10 - F90.9) [facility] Other 01-10-2024 Evaluation note* Encounter Date Diagnosis Assessment Notes Treatment Notes Treatment Clinical Notes Apr, Adult ADHD (attentio n deficit hyperactivity disorder) (ICD-10 - F90.9) [facility] Other 01-09-2024 Evaluation note* Encounter Date Diagnosis Assessment Notes Treatment Notes Treatment Clinical Notes Apr, Adult ADHD (attentio n deficit hyperactivity disorder) (ICD-10 - F90.9) [facility] Other 01-08-2024 Evaluation note* Encounter Date Diagnosis Assessment Notes Treatment Notes Treatment Clinical Notes Apr, Adult ADHD (attentio n deficit hyperactivity disorder) (ICD-10 - F90.9) [facility] Other 12-07-2023 NotePatient Education Materials Follows: Mallet [...] or lying down. General instructions ? Take gyxv-ham-mzorewi and prescription medicines only as told by [...] by your health care p (more contentnot included)...[facility] [id number] Evaluation note * Encounter Date Diagnosis Assessment Notes Treatment Notes Treatment Clinical Notes Jan, Adult ADHD (attentio n deficit hyperactivity disorder) (ICD-10 - F90.9) [facility] Other [id number] Evaluation note* Encounter Date Diagnosis Assessment Notes [...] in 3 months or sooner if needed. [facility] Other 09-08-2023 Evaluation note* Encounter Date Diagnosis Assessment Notes Treatment Notes Treatment Clinical Notes Dec, Adult ADHD (attentio n deficit hyperactivity disorder) (ICD-10 - F90.9) [facility] Other 09-07-2023 Evaluation note* Encounter Date Diagnosis Assessment Notes Treatment Notes Treatment Clinical Notes Dec, Adult ADHD (attentio n deficit hyperactivity disorder) (ICD-10 - F90.9) [facility] Other 08-30-2023 Evaluation note* Encounter Date Diagnosis [...] Cutaneous candidiasis (ICD-10 - B37.2) Refilled diflucan. [facility] Other 07-11-2023 Hospital Discharge instructions* Discharge Instructions* Bailee Lew APRN - HOSPITAL PRODUCT SPECIALIST - 10/11/2022 8:08 PM EDT Please [facility] a [facility]. Use an ice pack or bag [...] through Care Everywhere. * RICE: General Info (Iranian) * Ankle Sprain (Iranian) documented in this encounterBON CHRIS [id number] Hospital Discharge instructions* Instructions* Radha Sanders MD - 08/19/2021 May use ice or heat, whichever feels better. May use [place] for pain. Prednisone as directed. Follow-up [...] a follow up appointment THANK YOU!!! From [facility] and [facility] On behalf of the Emergency Department staff at [facility], I would like to thank you for giving us the opportunity to address your health care needs and concerns. We hope that during your visit, our service was delivered in a professional and caring manner. Please keep [facility] in mind as we walk [...] how we did during your visit at [email or web address] and let us know about your experience * Attachments The following attachments cannot be sent through Care Everywhere. * Herniated Disc (Iranian) [facility] [email or web address] Phone: evaluation note* Diagnosis Herniated lumbar intervertebral disc- Primary Displacement of lumbar intervertebral disc without myelopathy documented in this encounter [facility] [email or web address] Phone: evaluation note* Diagnosis Gastroenteritis- Primary Other and unspecified noninfectious gastroenteritis and colitis documented in this encounter [facility] [employer] Phone: evalnfmaur note* Diagnosis Sprain of right ankle, unspecified ligament, initial encounter- Primary documented in this encounter [facility] [employer] note* Diagnosis Back pain, unspecified back location, unspecified back pain laterality, unspecified chronicity- Primary documented in this encounter [facility] SystemEvaluation noteNo [facility] [employer] Other Evaluation note* Diagnosis 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 Pain in finger of right hand Pain in soft tissues of limb [facility]* Diagnosis Herniated lumbar intervertebral disc- Primary Displacement of lumbar intervertebral disc without myelopathy documented in this encounter [facility] SystemEvaluation note* Diagnosis 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 Finger injury, right, initial encounter documented in this encounter [facility] SystemEvaluation note* Diagnosis Herniated lumbar intervertebral disc- Primary Displacement of lumbar intervertebral disc without myelopathy Lumbar radiculopathy, chronic documented in this encounter [facility] SystemEvaluation noteNo assessment information [facility] Work Phone: Evaluation note* Diagnosis Lumbar radiculopathy, chronic- Primary Herniated lumbar intervertebral disc Displacement of lumbar intervertebral disc without myelopathy documented [facility]* Diagnosis 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 documented in this encounter [facility] SystemHistory general Narrative - Reported* Type Description Date Medical History PCOS/insulin resistant Medical History PCOS (polycystic ovarian syndrom e) Medical History Frequent headaches Medical History Gestational diabetes Medical History Prediabetes Surgical History cholecystectomy 2004 Surgical History appendectomy 2006 Surgical History Hospitalization History see surgical hx [facility] [employer] Other Hospital Discharge instructions* Attachments The following attachments cannot be sent through Care Everywhere. * Gastroenteritis (Iranian) documented in this encounterBON [facility] Work Phone: InstructionsNot on filedocumented in this encounter [facility] SystemInstructionsNot on filedocumented in this encounter [facility] SystemInstructionsNot on filedocumented in this encounter [facility] SystemInstructionsNot on filedocumented in this encounter [facility] SystemReason for referral (narrative)* Consultation (Routine) - Pending Review Specialty Diagnoses / Procedures Referred By Contact Referred To Contact Physical Medicine and Rehabilitation Diagnoses Herniated lumbar intervertebral disc Lumbar radiculopathy, chronic Reny No APRN-HOSPITAL PRODUCT SPECIALIST [address] [facility] [address] [place] [address] Vishal Martin DO [address] [facility] [address] [place] [address] Referral ID Status Reason Start Date Expiration Date Visits Requested Visits Authorized [id number] Pending Review Specialty Services Required 05/24/2023 05/23/2024 1 1 [facility] (narrative)* Consultation (Routine) - Pending Review Specialty Diagnoses / Procedures Referred By Angela hart Referred To Contact Pain Medicine Diagnoses Lumbar radiculopathy, chronic Herniated lumbar intervertebral disc Reny No APRN-HOSPITAL PRODUCT SPECIALIST [address] [place] [address] Davis Silva MD [address] [place] [address] Referral ID Status Reason Start Date Expiration Date V isits Requested Visits Authorized [id number] Pending Review 06/12/2023 06/11/2024 1 1 [facility] Advance Directives No Advanced Directives Records FoundDocuments on File Type Date Recorded Patient International Specialist Expl anation ACP-Advance Directive ACP-Power of Support Coordinator Advance Directive Response Recorded Date/ Time Advance [...] of digit, initial encounter Nicole Lockwood APRN-CNP [address] [place] [address] Rohit Smith MD [address] [phone] Referral ID Status Reason Start Date Expiration Date Visits Requested Visits Authorized [id number] Pending Review Specialty Services Required 3 03/12/2024 [...] would not scan at bedside. Verified with [facility] prior to administration.) Scheduled Medication Order [...] Care Teams (unrecognized sec tion and content) Electrical Engineering Professor Relationship Specialty Start Date End Date Johnathon Winter MD PCP - General Family Medicine 03/08/16 Electrical Engineering Professor Relationship Specialty Start Date End Date Johnathon Winter MD PCP - General Family Medicine 03/08/16 Electrical Engineering Professor Relationship Specialty Start Date End Date Johnathon Winter MD PCP - General Family Medicine 03/08/16 Electrical Engineering Professor Relationship Specialty Start Date End Date Johnathon Winter MD [address] [place] [id number] PCP - General 03/13/23 Electrical Engineering Professor Relationship Specialty Start Date End Date Johnathon Winter MD [address] [place] [phone] PCP - General Family Medicine 12/12/22 Electrical Engineering Professor Relationship Specialty Start Date End Date Johnathon Winter MD [address] [place] [id number] PCP - General 03/13/23 Electrical Engineering Professor Relationship Specialty Start Date End Date Johnathon Winter MD [address] [place] [id number] PCP - General 03/13/23 Electrical Engineering Professor Relationship Specialty Start Date End Date Johnathon Winter MD [address] [place], [place] [phone] PCP - General 03/13/23 Team Status: Active Member Role Status Dates Johnathon Winter MD Primary Care Provide r, Attending Provider Active Start: May 10, 2023 Team Status: Inactive Member Role Status Dates Tee Peterson MD Attending Provider Active Start: May 23, 2023 End: May 23, 2023 Electrical Engineering Professor Relationship Specialty Start Date End Date Johnathon Winter MD [address] [place] [id number] PCP - General 03/13/23 Team Status: Active [...] content) DATE CREATED AUTHOR [facility]/17/2022 [facility] DATE CREATED AUTHOR AUTHOR'S ORGANIZ ATION 10/12/2022 [facility] DATE CREATED AUTHOR AUTHOR'S ORGANIZ ATION 06/12/2023 [facility] DATE CREATED AUTHOR AUTHOR'S ORGANIZ ATION 09/02/2023 [facility] DATE CREATED AUTHOR AUTHOR'S ORGANIZ ATION 11/23/2023 [facility] DATE CREATED AUTHOR AUTHOR'S ORGANIZ ATION 12/01/2023 [facility] DATE CREATED AUTHOR AUTHOR'S ORGANIZ ATION 12/07/2023 [facility] dical Specialists [facility] DATE CREATED AUTHOR AUTHOR'S ORGANIZ ATION 12/14/2023 [facility] ysician Group Goals (unrecognized section and content) [...] BE BASED ON THE PRIMARY CLINICAL RECORDS. [employer] provides no warranty or guarantee of the accuracy or completeness of information in this document.
[2023-12-29 07:09] LABS: Vitamin B12 303 pg/mL (232-1245)
== END 2023-12-28 13:04 | disposition home or self-care (01) ==
LOC: LAB 13:04
PROVIDERS: PCP Family Medicine; Visit Provider Obstetrics & Gynecology
DX: E34.9 Endocrine disorder, unspecified (principal)
CPT/HCPCS: 36415; 82607

== ENCOUNTER 2024-03-13 13:17 | Outpatient (OUT) | payer BC, SELFPAY ==
--- NOTE | 2024-03-13 13:21 | MM_ITS ---
Patient Name: CHAR ANN MR#: [id number] : 1980 Exam Date: 03/13/2024 Ordering Doctor: DR Sanjeev Lopez . RADIOLOGY REPORT PROCEDURE: MM TOMOSYNTHESIS DIAGNOSTIC BI, 03/13/2024, 13:30 US BREAST BI LIMITED, 03/13/2024, 14:10 COMPARISON: MM POST BIOPSY LT, 05/23/2023. MM TOMOSYNTHESIS DIAGNOSTIC LT, 11/15/2023. INDICATIONS: Breast Pain Calculator Name NCI Breast Cancer Risk Assessment Tool 5 Year Breast Cancer Risk 0.90% Lifetime Breast Cancer Risk 10.90% Personal Breast Cancer No Personal Ovarian Cancer No Treatments None Family Cancers Grandmother-maternal with stomach cancer at age 65. LOCATION: [facility] BREAST COMPOSITION: There are scattered areas of fibroglandular density. FINDINGS: DIAGNOSTIC CATEGORY 3--PROBABLY BENIGN FINDING. THE FOLLOWING FINDING(S) HAS A HIGH PROBABILITY OF A BENIGN ETIOLOGY: The breasts are stable in size and overall fibroglandular configuration.Scattered benign-appearing lymph nodes are present. RIGHT BREAST: No significant mammographic abnormality. Ultrasound demonstrates at the 3 o'clock position a 1.2 x 0.3 x 1.0 cm area of oval smooth hypoechogenicity with some acoustic shadowing, no corresponding mammographic abnormality. This is indeterminate the relatively benign in appearance six-month follow-up is recommended for further evaluation. LEFT BREAST: No significant suspicious finding. Micro clip marker lower inner quadrant, mid breast, stable RECOMMENDATIONS: SHORT TERM FOLLOW-UP ULTRASOUND RIGHT BREAST IN 6 MONTHS. PLEASE NOTE: A NORMAL MAMMOGRAM DOES NOT EXCLUDE THE POSSIBILITY OF BREAST CANCER. A CLINICALLY SUSPICIOUS PALPABLE LUMP SHOULD BE BIOPSIED. Dictated by: Mj Silva MD on 03/13/2024 at 14:56 Approved by: Mj Silva MD on 03/13/2024 at 14:58
--- NOTE | 2024-03-13 13:27 | US_ITS ---
Patient Name: CHAR ANN MR#: [id number] : 1980 Exam Date: 03/13/2024 Ordering Doctor: DR Sanjeev Lopez . RADIOLOGY REPORT PROCEDURE: MM TOMOSYNTHESIS DIAGNOSTIC BI, 03/13/2024, 13:30 US BREAST BI LIMITED, 03/13/2024, 14:10 COMPARISON: MM POST BIOPSY LT, 05/23/2023. MM TOMOSYNTHESIS DIAGNOSTIC LT, 11/15/2023. INDICATIONS: Breast Pain Calculator Name NCI Breast Cancer Risk Assessment Tool 5 Year Breast Cancer Risk 0.90% Lifetime Breast Cancer Risk 10.90% Personal Breast Cancer No Personal Ovarian Cancer No Treatments None Family Cancers Grandmother-maternal with stomach cancer at age 65. LOCATION: [facility] BREAST COMPOSITION: There are scattered areas of fibroglandular density. FINDINGS: DIAGNOSTIC CATEGORY 3--PROBABLY BENIGN FINDING. THE FOLLOWING FINDING(S) HAS A HIGH PROBABILITY OF A BENIGN ETIOLOGY: The breasts are stable in size and overall fibroglandular configuration.Scattered benign-appearing lymph nodes are present. RIGHT BREAST: No significant mammographic abnormality. Ultrasound demonstrates at the 3 o'clock position a 1.2 x 0.3 x 1.0 cm area of oval smooth hypoechogenicity with some acoustic shadowing, no corresponding mammographic abnormality. This is indeterminate the relatively benign in appearance six-month follow-up is recommended for further evaluation. LEFT BREAST: No significant suspicious finding. Micro clip marker lower inner quadrant, mid breast, stable RECOMMENDATIONS: SHORT TERM FOLLOW-UP ULTRASOUND RIGHT BREAST IN 6 MONTHS. PLEASE NOTE: A NORMAL MAMMOGRAM DOES NOT EXCLUDE THE POSSIBILITY OF BREAST CANCER. A CLINICALLY SUSPICIOUS PALPABLE LUMP SHOULD BE BIOPSIED. Dictated by: Mj Silva MD on 03/13/2024 at 14:56 Approved by: Mj Silva MD on 03/13/2024 at 14:58
--- OUTSIDE RECORDS SUMMARY | 2024-03-13 13:31 | XMS_ITS | CCD ---
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 BMP #### [facility] ([id number]) [address] [place] [address] Platelets (Bld) [#/Vol] 267 10*3/uL Normal 150-450 [facility] Comment on above: Performed By: #### C VIANEY, BMP #### [facility] ([id number]) [address] [place] [address] RBC COUNT 3.58 X10E12/L Low 3.80-5.20 [facility] Comment on above: Performed By: #### C VIANEY, BMP #### [facility] ([id number]) [facility] [place] [address] WBC (Bld) [#/Vol] 15.6 10*3/uL High 4.0-11.0 [facility] Comment on above: Performed By: #### Raul WINTERS, BMP #### [facility] ([id number]) [facility] [place] [address] Coding Summary 01-26-2024 Coding Summary HTMLBase 64 BraedqalSNb9rKi+PGhlYWQ+ BV1GIJOtZ86ruNGxsR5pC4IV TElOSywgQVBQTElOSyIgbmFt DV5hxPPtDUXl IC8+RI9yYYAhPdsqoIFgd4K8 bRJ5O71rcv1gMZcdsCI6MZVn QySwoieue4xidPx1MNtnVivy OyBt AZQfvF38MBK3gA33Gz36kCOn lSDpo4ojaYh2SbUhPRKaYAV3 eWdjSTwax9KmVMEbA44rhLQv c2U6 IHKveXdhdKBcBsVvqBM1dK4v IProkvrgs5vwczvkTam7km40 fYJgl9U0rNA3U6QjawP0JCJk bGQg EfkixIJHqQ7cjdexl9lesmvh NqRvKHMrHTv8ZVh8YTUfyNkk JcGlQP56HZX5OZUdyfWtK2Dq LWFs zKsaJkS3i5N8Kw4LB1CXWbkb U7NYDFFLEKqbsHW+TL77wf21 R4RrQljhNdn2VHFbNUM9kUS1 aD0n TJGuWSakq5G0hEO3O1HexsKa fa4rr5fmOZPiAJzkG50kqSZe h7M0LOMusJN2BWCeeVblEtHy aG93 Oyc+HMWviGwzf1ZrDyiuk4gg z8zimCg5KzuhSYRbjtZfzPrg OXB8s0VzTj7bQCDwjVS5rAW9 aD0i AjQzAiL1TBgfL853UuKcrNSr YtpoS88iM9ZpuUZ+PHRyPjx0 PZPwiJnlNA9uM8SuESYikleb bGVm pWqnQQ6eGSXdhwngUFKcfE7c HFRwM8w0XfVjHkY0ZGbsX4Cx QALmljkuHw84kQ6cSdKtCxJ8 MGlu X3QqzrC0FXYyrJRaKXrmIDM9 I51ks4A0FLNnATXiAXE8bGY5 aD5mzFsialxzfRZtyIgwjiYx dGlj LSeqQNgjY440NNFjbUbuBjIv ZGluZyBEYXRlOiAgMTAvMjUv MjAyNDwvdGQ+LWQtCYK4yLsw PSAn lKOzSDbcAu3sfTkbcGfhPM1t WAPdspmpJIVhjH5uSRTeyEZg eDqwSZ9lHDLtjmtum777SgIs MHB0 RMCvqHSpQ8RabR5pVxAqNASm ZFJlY7HckKQiQFpuB723AUlt HfS2IQRoceCuF9AjEDHvwTrc OiB0 r5D2Zg0Bo9PwvctjM8QetWIa FwFqRktfLQr9C8OnCqgxpHQ+ IJ22SAXoSD18IIq9YJZ1nBet PSdi YCBiP2UvaV1uHrMdTSQyCNGp Oyc+PHRhYmxlIHdpZHRoPScx WCUoDhKgdPmtHZ8pCe5sNXPi LWNv nFxrfEHkDqSdq0urRWLeYOyz ZU3laGjrG3AzzFC2PBLqo9e7 Vu11Z89vM2MqnRC+PGNvbCB3 aWR0 jZ8iSjUjDkB4CTlaK204CpGd oJQlRcxqt1myi3lrpFz3NbT8 FNSlycRcxHlgFSW8n3ZfLc14 Y29s IHdpZHRoPSIxNSUiIHZhbGln pw0tkX6zAc2+OGIqaOI5dCG7 iG0mKeTtQeW4AZbpI756FaWu cCIv Negdk8yee5xodGi8AoBaQPDp uoXizGwyWOF6e5WuSs24D9Gb mRyob0YgVtv9hk48nDUqw8Z9 bGU9 S2NbEXVkaoagmJLneWuwSE9p VDRufuoeRZYzhQ3gFETqR7h4 JdIoEcP3FPmmK0HriaN2AAZf bGQg RYVqoGQDpP9ajyxku7jndrdi OxAaKGRzACy2NOa3MRInjJnn AdKjYWW6OqD0GUH8wTXmuS1h bGln vnfbcG7sDzi+RJX3kQDjzGNI PB4sFgcexRE+BMOiTIG7hNxl IIoyVHQbhM8gTOWuV2n9IxNz LjA1 WJktL6HpkwI7NPAjxPPjJTMc sJPQkE6axiype4ctdlruCwRv TWHeIEb7UNi6VERwqOraDiDy ZWZ0 PoF7EBI1mDMmcQ7zkPzqvzqp sB4hEtq+JixpzAxzRFN6GEk3 J1GfNge2SCQlbFvuVS8mnHEw ZGlu Ha8agMywzEncAK3jVCOoncga h241EkCtz2rhMTKjqNTyRHgb CWZ2W34ju5R7SQTqCQMqNGN5 dGV4 xU9kyRzcceoxzCNddGwnlxPf gSbqLWxsEPruJ781FTLrcZus LaLtGVt1N4MvSom2JDVbaRtr ZT0n vPFiOLjeOz6ifGjamGfjKT5n RCJuhchtc851AkQya1kxZCZw hNCiHRucDAW3O06xa8K3HNBw MDAw JRL8lNY0dJ7uhLpggrezgMZy wOjkflQphEycGEsdKByjW727 GAZvnGuoIdLulWv5F8VwCoz4 ZCBz wXhwQL2ndUWuFJqoEq4bmAxk xWwpTD2nUSBzdkird113OfLs j3gfGMEudVEtPGriSRM3A95z b3I6 HKAtDVWqEYZ4uHL5hM1jgWfk bjogbGVmdDsgdmVydGljYWwt NKvkY946AZPvkIxpWhZrbNfw bnQg ZCfhDJl7X9ZxYcjgxHC+PC90 QDEhVC36dDMhwRXdi6zzsAn0 VfUvTFPbXHH2xJtbYTvxf9Hs ZXIt S58wjROku4N3ZSJkgIfqiQBs MpFkaRQ0zV4qFQnprltdp8ap nvgoAnosh0khbj97mC51E98i IHdp WJRyAQFaKOYcOKRvdEqpex2c cC1nGy6+LRPnqLJ0fZE2uM0f AJQyOtD1QUgjL078ZtNwhBHe Pjxj l1jhq4eonFm3OmZ1DGHbohHg iHsuSUW7b0IlOj17Z46qUZis PACyTPRgBXLwXXAgmSbhyk7n dG9w Ii8+SSSflIN6pDE4oF4jPiNl UpU0RLqaN369CwIvtFVaZixl H65vD8ZihJJ+RODfPxl3GPCu dHls KD4kfRKwVJyvBz7aLND5VmWe ZyWjRXplY3PoBFBmxmgytgdh bRE9YKSlWLDmlY23Zg1dwPrt MTBw nKHYsN3ywwfms4igdluyXeFh KSDfOJd3WJy5ABLmzYfkQaMa JAP1EgN3ZDL3bEZitU6oxEln bjog bW2cJ6EkNQEiraeqUw65zQ6c XrFaVhV0EMskPoi+M35GL6yE LCBBTUFOREEgREFXTjwvdGQ+ PHRk LMZ1jFtpRLqhZXPahS3aHLYm S5g9GeWqAeG4QMpbD9TwJUJy rhioVo25zC1mNyTtRkZ5JXys O2Zv muU7TVVsnMYnPAveJZD5X88h r6W9NIZnAGKtYFN4zVU4xX6h bGlnbjogbGVmdDsgdmVydGlj YWwt QNoiC217OGBppAmbQmV8SiUd HtH2FVP8B4IdSna8YDBypGum RH9emPOgTLugCl7zcUljbDwe MC4w QRCexjfjJFTwqN7gLPIvzWJk rEqaKC8xTKWgpjgjc552NnFd YDV1WADfoFItA6IzuE1lUxGp MDAw JITaO6DawAFrSFviZ819UPkg FvP9HDCakpBoH1GtALTorEtw ErA1i0D4Eb52GTBEICZbwsdv dGQ+ DFPoEQB5cNxmXTfeSCKlaF7o MPOlY8h0IhXmWdO7YRmwH6Tn JCSupwneMa17oA6pNwNdYiA0 MGlu R2YmlvU2GHVkzFTfORldDEG9 Q01he2F4SWVjAJBaJAF9mBS0 dM5clYijanhtqUHftSoiyjWy dGlj PKupLQpbJ226NLXvqRlhAnLG TUFMRTwvdGQ+FPSnMFP6iPdl BSvzWNPgkI8tZTPfK1o0IxEl LjA1 JWviR5AsQRDrbvjjGh54hY3j ZaMrBxF6LDewO5AhncJ9SQKa yGPyPInlNXJ1O22nh4R9TBKh MDAw JEI6uIW4pO2rpQhifdyjdYAo nHdhopYcfSfwGMuzJOwsN896 GSManAusUnTdJYFvST5tzIek dGQ+ GR29ul58D3BoSyluYgm1KCNz SNV5aDV6kC8kYXBjDZkcs2L8 eUC6L1KeypGuoe1yh3rhMQFl ZTog O66gsIPon5U6GUKkqWK6TTBg iNlyPoDygJ21Mpm+PGNvbGdy z3AzRidjo1ezd3uieCd6IgUz JSIg dpZpqQutTUI5l1LcNd96U54u IHdpZHRoPSIzMCUiIHZhbGln ul5iaU0iNm6+VWOeuGO6aMB2 aD0i ViPhUdO8CGrzF677TiAvpWOi Hweeu9qvu6mdiJh4DxOqDBRr vfLxxQebAQC6k5NxGf05V3Aa bGdy j4KeFcu4yn06hNEzo8N3aQC0 E2WmZHVqjkleoACfjNosTF4g XJZfjiefRSIwxN6rDJKzV1m8 OiAw JoU3YYesT8MshoX2MYVwdPEc TXWmjWTNwT4xqtewz5wkzpyr JtIyRIKsWKi3IFo3WTQduDpz OiBs ADM9XpB2UYA7wDYmfU7clNwz uhsryC0uJtt+OBn2c7cytESe EX2bpLY9PX05YJ44qPPkt0F2 bGU9 W3QuCWNgwrhtqffflSZ8KSWm TOSszX96Gc5fcHnxXj8zFPXo KUM7RZSiwKYpK7DurR0rUaMo MDAw GQPjV2SyrYVqKJopK629THyl YmK2KNYiwbGsF1LjSLKfsNuq ZpJ2v4T1Yl3WFW01QB74ZQ19 dGQg y8Z8vNH9G1XdLCYrhigyngty mSA9NDYuDDJduF37Pi4ikCkk Si8hXPJhYIA5XVCspBWmJ5Fx bG9y IrDkRQFjMKYhO6BtnMGvREnc M416MEewWhR2ASXyiqSuX7Eq DADmkBowBrI1f5A7Re8AFs77 PC90 HD19rUFls1T3nMS6A2FtPNWa fdskyunbyFQ5DZHdVJKwxM26 Na7pzHnjCp1nSBErFWJ0XCBz bWVz J5SxuT0mLwBfDSVyCYPvO4Qj fKQcWPkwB629LYpgUpU2HPPw fxIxJ6BcHMGimAaoMpF1g0O6 Jz5Q CQnvlba9N4AfZvpdrFA+PC90 LRReGL73nVSujMGgh7ntoZt9 TzFzZYTuSNR7qXwyGSove6Fa ZXIt Y29 (more content not included)... [facility] Coding Summary HTMLBase 64 NvbhaubjEBl4xSq+PGhlYWQ+ BK8IJJFaW84uyTYnhA9uA4YQ TElOSywgQVBQTElOSyIgbmFt PR3kkXTfXPTb IC8+EM0kEMUeCxttpQAhn3K3 zME5E72qsf9bINrcxTT5PHTl YqKmmygnh7pwuHv1SCvjFtdw OyBt WJPykY92TBS7eS76Or98tCJm fLGwx5zfaMy1PvIpJMIrYME9 wPstBEskc5KzCDMgU42zpEVb c2U6 JEBznLhajBKmOsOyhQD5yP8e VWbovmjzt5hgbwpqBhl3xg56 bHEal7S4bZC7M9UnwvO7QEQe bGQg EfayaUWBgL6pwvoig1vqxjyg OzUlXIImDSn0HCh6POKnwEcn CeFrIC73MJO8TTKbqcPnQ8Ny LWFs jBdiWdQ0w2O3Jq4VO0ACLmkg F1WGZJATCBatmPI+PF68qf05 B5GkPsjpFty3KXGnMLU7aBY5 aD0n LJNbAEkqe2D3aKN7S6PrinUz ml6gy9mwRFFgHVfaI36qeOMt q1E9PPMogYN2QCFuzIjzBxSu aG93 Oyc+DOJleRdnt3EnDwxfe9pu y5pdrOv6YevbLNFiozMmdPxo ZXP1y4VrSw5kFDPpsGD1pTU2 aD0i ZiSkWoR0JKekT136UpAzdYBv QvvuO10aR2WbcNF+PHRyPjx0 GXFchWegOR9eV2WoFDCbsxux bGVm dRtaOS3qZTXzkhdcZPDtaU8y ZOJiI0c9YrJxNhN4QBaqH8Kv APXxmpryWe10nH2dGiOeRfC1 MGlu A4IrluW7DZXugBRkIDarDQN7 V06jw7B7FHMbNMBiMIL7zWI9 rL2fqZiiaawadVWfuTnfvhXi dGlj NCqtQNhxQ849IORqoUzgFyUg ZGluZyBEYXRlOiAgMTAvMjUv MjAyNDwvdGQ+TTAfSOP3qZvx PSAn kYAwBFvnNi6rwSsifDdnSJ9h SQAudmfkNLUmbS3oJKIjfCCw zLamNQ5wHTXfjqafg754BmHn MHB0 AZBwoVGiW7VseR1eHrIeGHSx ORZzX8SgpRXtOUngY080GNvn GmB4WFDpuiPrW1AwWEYqnZlq OiB0 t1U6Fj6Fh3YpzrprX9NeuATz TiAgOgmoYLx9H1QxKwmnbHV+ AR99TMHlXH04SXj2HVN5tMld PSdi AHVrE3EyyU6xDpBhIYZoVLGp Oyc+PHRhYmxlIHdpZHRoPScx NSKzUlKnyIpzWI5aUy3bGWJd LWNv aFyvsQLfAzGwz1hbKMWzKBmn JV1lzXkoH1RczLW9WLOiz4h1 Pa78H86nC0BrlBD+PGNvbCB3 aWR0 oT3wGwSdBuB0MSrtI496QtLk wQLpCltbu5euv2khvCj9RbB1 XMTttqKagZptRXK5m6RmIe21 Y29s IHdpZHRoPSIxNSUiIHZhbGln ib2gaX3hPl3+PJGmhTC3uXO2 lL4bWfZcJtD8CYagC805EuMd cCIv Kdbky5msb9dciDp1KuVaCIVq xwWyeFkfVSO9t8GiIe50T1Ow oBkaw4HxXns7bl49oMUkn2Z2 bGU9 N2DpUBPryxzlbYQwaPmgCE7x EMBmnzncUUJrfY4jDZDdJ1w0 CuFeUfL7PYdcP8IqtjH5QGBw bGQg MPUcdPJLoC8ktwvqf3xjvrgg NsTrBDEdUXo9GAb2KUQnxVpn EjJjPUY8GmZ9FHF2aAAaeV3z bGln tumglD5qAuk+VWD7tLKekZZZ TM4nGuqmzWA+MQQnDKC3iTut KCppPPGbkP4fAGGyF6t3KdNx LjA1 MYrxK0QrqmX2KSIrhLDwVZAd yZJYzM0ocpoqe9bieaccJsLv FPStGRz8RHg6QNAvvLnePpRw ZWZ0 OoP3XXO0zBCklQ2ocGeijeax dD1sClh+HomprNdnXBC6MCg4 U7SoZvq2KAYhlOtcBY1alZMp ZGlu La8mcNnzzNlxUZ4fCEIewtgq d032SlOqq8exGHHrbXLqCRgb PCI8W78ps3X4ALMiUZKkYHN7 dGV4 xV8lxJkzwyhtyTBztRqgizTu uKlsOHbxNBofK465JKLnvFke GsFsRCv1B1WpSma5DOPahGle ZT0n tKQuZMkuYq4pjAztsYceOO1h KZYezqked449LlWhk5isSVLx mBHyQMqzHJX5A76vk8S0OJWz MDAw ZZX9mZE4oU7qiUqnomejeNMd xSnxbsFiaRyjPJvlISbcT901 AGSdfLudOmXkyLw0F8UlSwl1 ZCBz cQmqGX5hlCCnAMcxXf1vhCcr xNbrWG7hKJSrhmwso959GsBe m4wzQPZcpXAxTKdmATH4P18f b3I6 QIEhOCRcGZV4vUN1yD7faGvs bjogbGVmdDsgdmVydGljYWwt PNzgY692QAHkaQorGcYynQji bnQg PRtxLBf4S6RbUbktwMC+PC90 CHEtUX31yLOwuEPjx0opzAt4 NoXuDUBxNLB4wZrbBPukx6Mm ZXIt B43quQQse0V1UYBwvOsowPVu RnSlxEY6iY5bXPefjvxkk0cn nydpMdoka8coqx61wS99Z27u IHdp ARVpHSXzGOWzWDZhzYhhpc1u dQ8pWw5+FXLvmXA0lBT8uR3s MGVyHyB8HYgtK668CoWaiUIy Pjxj v1udp1vrsCp3PmN4DIQhdlEz kKitXMD4b6ByYn52V57sCGss FCCcAUErGSYzVSOsnOyzij6c dG9w Ii8+TXSjaAB1mWN2oR3wEvRc TkS0ARajQ002NaFmaDZlPnlq T73mQ9FgwTC+MNNwJty4AMNb dHls IT1nxTQfGVtzIk9rPTN9VzFo LzGbHKdhV0NsUBBqcmgjfewi yEW5SGVzWIDfpG47Jy8gtMkm MTBw tDOWoF5crkfsr0jovpdvQiBr LFIaETk1WVk3ZHMhzKllGfVq KLQ6GvI6FUR8gRFctR9jgKsg bjog uZ0sJ9XoLBJkrnepMa96nJ6g WgSnKmG7LLsxHak+V64UD8wN LCBBTUFOREEgREFXTjwvdGQ+ PHRk VRB6pJkiAXpxMVCcvA5xQZRf Q1c2QiMjMuC3AGqzS5GlXJIe mymnWr18dX7cMbUjUkF4MMfk O2Zv aiP1MUYiuBNpXTrcGWA1F88e b8O9INIjCQYsEUN1nBE8hC6n bGlnbjogbGVmdDsgdmVydGlj YWwt PRtgF793ZZExhZcmQkX5TcRi OhM4VUT3B0DdYzw6OOUocAdt OX5jcETwTAkqGv3sbMmsrIqa MC4w AWWtbqcfIOOvjP5rSGRefHRn eRfhHP8nDNWbjjfvx198GiBi JFS7JISwhHGhN7AvsN0sUfDb MDAw OLJzT2ByiSVtBLwaC428SRzi JxC4KOQiehCjB6SuUMFfhHna KoV8s8E9Kf09KERXDGHxfwxx dGQ+ WTZxSWJ3tRlqHGsoWZWhuN2r DCQwH9d2TkVbNjU5KAhhW1Pf RXUwgwftMh12fQ2pEmXlVxR8 MGlu L2WgjwC0NWOhmWXsXCaaVMF2 K51kq2H6RQWnNFHkFCI3uFU8 vY0guBomykhevVZucHreiwYo dGlj JCnvVFguI936KATxwSeyGlDD TUFMRTwvdGQ+AXTzEHU1rMpv OTlmQBBmyK3rWYRhZ8f9DcSs LjA1 UZbyM8AlPVXmangiYi32aR0p XtPmNeZ7NOtgY7QrtiK9VQAs tFEsVIjkMUD2Q97rg0I4VDYa MDAw ENF7rIP3vX0teCvuurxhkDYq aDwhrzYjmWatPOobWLszX997 JQSahVwoHmIeGWMePQ5owJzl dGQ+ VL25fi70G9TaOmqwRjk2SBJf AJD9iVH0rX9aQSNnMFmes1Q3 vZX1J2TvgxRjjc8du6xbATNp ZTog Q69wxCXmd5Z0STTfqWT6EVRp qXosMbTpoB71Izz+PGNvbGdy j2DlBkuof9tbc1shgYa8MdVl JSIg neBzaUkfWFM6s0FmEf16G69s IHdpZHRoPSIzMCUiIHZhbGln xf9jpY2hTq1+MOFhxSD0jVB0 aD0i RdYiNaK7IJqnE652SjRtfLFg Shqjq6vsu6terIx7YrYkVIHo vdJghMeaWYS9m9RiFu96Z4Nb bGdy n9HzMlm6dg48gRDoc9P0iDZ9 Z8XmAPZjydssrRZutWfpNK4i IMBbrlchLASjwF9dTVRkV2j7 OiAw UtD4IJhfY6HwcfH1YAYydXEo SXYdoJCExU5rbgrro2wkasgs IxRuIPMdAYb4JCp4HAYzcEng OiBs VKC2KqZ9LAE9kNFwjS7mhSyg xawppU5yCwe+LOn7v6cxfVMz FK8bkOC4PP09QG27vHDvr3P8 bGU9 M8MxBBRpzbprejdftLM1KQGk ZHJnuC47Zg4wsRjeGg4iBEXj QTX3MMGkxHKzQ0WmjZ6dOlQr MDAw TDDwB8IsfOHnXNowD807GBkh MqW3WNIxkoIbP2IqBWUweXjk NcF6r2Y3Fc8EUC41IH65ZI58 dGQg k6S6qMS9M3FeGCXfzibpjizu tDU1OPZyKNKvfT55Ir2vdSve Fi8lKAIjFNG4YZFyaCZtX3Di bG9y BaLfCJCrQBPsA5PwiZKiSGhz C146KCgmNuD6YMIkfsKyI5Sy VHQmaNcoOzN0u2A6Sh9YVv25 PC90 SS66aENjq4Y9aDR8Q8VeQCTz bnfkmyaldNF1ECXwFPXhdB84 Jo3jpVvmUb9cUNCsTSK5ABVd bWVz T6WlfV5bPyFhITOkEHGfR3Ue jVNcASudL430HPjyTyS3UFFq quVaB8KzRRBodBbvYfW6y8L5 Jz5Q NNcsbbi6F4AbChypyQQ+PC90 FFEgKP51aWChhMRis4nkhXm0 ZrXoRIDjZIF9jCjaDTsnr5Wk ZXIt Y29 (more content not included)... Normal [facility] Consent Formson 01-15-2024 Consent Forms [id number] TIFF Normal [facility] .Auto Diff 1on 01-14-2024 Auto Drew % 6 % Normal -12 [facility] Comment on above: Performed By: #### 1 [id number], [id number], [id number], [id number], [id number], [id number] ####[facility] (DEFAULT)[address] [place] [address] Baso Abs# 0.0 x10 Normal 0.0-0.2 [facility] Comment on above: Performed By: #### 1 [id number], [id number], [id number], [id number], [id number], [id number], [id number] ####[facility] (DEFAULT)[address] [place] [address] Basophils/100 WBC (Bld) 0.7 % Normal 0.2-2.0 [facility] Comment on above: Performed By: #### 1 [id number], [id number], [id number], [id number], [id number], [id number] ####[facility] (DEFAULT)[address] [place] [address] 04248 Eos Abs# 0.1 x10 Normal 0.0-0.4 [facility] Comment on above: Performed By: #### 1 [id number], 5722075254, 3147526764, 8762918, 62845170, 9177747502, 7793628 ####[facility] (DEFAULT)[address] [place] [address] 76337 Eosinophils/100 WBC (Bld) 1.3 % Normal 0.9-4.0 [facility] Comment on above: Performed By: #### 1 [id number], 5022203659, 2337932839, 4735314, 15612471, 5672944491, 8262969 ####[facility] (DEFAULT)[address] [place] [address] Lymph Abs# 1.6 x10 Normal 1.3-2.9 [facility] Comment on above: Performed By: #### 1 [id number], 0023535712, 5192652939, 8868373, 74257321, 1814767787, 7768875 ####[facility] (DEFAULT)[address] [place] [address] Lymphocytes/100 WBC (Bld) 25 % Normal 14-48 [facility] Comment on above: Performed By: #### 1 [id number], 5921631431, 5529419621, 7364036, 76684672, 4861803232, 6641542 ####[facility] (DEFAULT)[address] [place] [address] Drew Abs# 0.4 x10 Normal 0.0-0.8 [facility] Comment on above: Performed By: #### 1 [id number], 0485631399, 6594602919, 0299869, 90318382, 4033062870, 2950161 ####[facility] (DEFAULT)[address] [place] [address] Neut Abs# 4.2 x10 Normal 1.5-9.2 [facility] Comment on above: Performed By: #### 1 [id number], 7422683876, 9908355363, 0229358, 93945590, 9727232587, 0148509 ####[facility] (DEFAULT)[address] [place] [address] Neutrophils/100 WBC (Bld) 67 % Normal 44-88 [facility] Comment on above: Performed By: #### 1 [id number], 1791757634, 2126497362, 7369751, 92253507, 8722466867, 7315494 ####[facility] (DEFAULT)[address] [place] [address] CBC w/ Auto Diffon 4 Erythrocyte distribution width (RBC) [Ratio] 14.5 % Normal 11.5-15.0 [facility] Comment on above: Performed By: #### 1 [id number], 6592681532, 4350632463, 0633199, 25579488, 5072961622, 3160733 ####[facility] (DEFAULT)[address] [place] [address] Hematocrit (Bld) [Volume fraction] 37.9 % Normal 33.7-40.4 [facility] Comment on above: Performed By: #### 1 [id number], 3381337506, 5635451474, 9037969, 57799944, 8561060163, 4532045 ####[facility] (DEFAULT)[address] [place] [address] Hemoglobin (Bld) [Mass/Vol] 12.3 g/dL Normal 11.3-15.9 [facility] Comment on above: Performed By: #### 1 [id number], 6298587493, 8825663887, 5208906, 72982724, 3449889767, 3809814 ####[facility] (DEFAULT)[address] [place] [address] Man Diff? Auto Invalid Interpretation Code [facility] Comment on above: Performed By: #### 1 [id number], 4557410923, 1957761569, 3211927, 19711103, 5717669575, 8986375 ####[facility] (DEFAULT)[address] [place] [address] MCH (RBC) [Entitic mass] 27 pg Normal 24-34 [facility] Comment on above: Performed By: #### 1 [id number], 1871210339, 3529144577, 2465740, 22567048, 9534352436, 1285210 ####[facility] (DEFAULT)[address] [place] [address] MCHC (RBC) [Mass/Vol] 33 g/dL Normal 26-37 [facility] Comment on above: Performed By: #### 1 [id number], 5856165936, 5687317451, 9148373, 36787736, 8707393294, 6201695 ####[facility] (DEFAULT)[address] [place] [address] MCV (RBC) [Entitic vol] 84 fL Normal 81-100 [facility] Comment on above: Performed By: #### 1 [id number], 1478105008, 6339986626, 7423547, 76778512, 0919151877, 8499616 ####[facility] (DEFAULT)[address] [place] [address] Platelet 270 x10 Normal 138-427 [facility] Comment on above: Performed By: #### 1 [id number], 3129969474, 1855687300, 9784662, 25782756, 9583348473, 4384024 ####[facility] (DEFAULT)[address] [place] [address] Platelet mean volume (Bld) [Entitic vol] 7.4 fL Normal 6.3-10.2 [facility] Comment on above: Performed By: #### 1 [id number], 8888600831, 4811787261, 6692482, 07538931, 5977190596, 8134991 ####[facility] (DEFAULT)[address] [place] [address] RBC 4.53 x10 Normal 3.70-5.30 [facility] Comment on above: Performed By: #### 1 949074978, 7884361596, 9820068729, 8939817, 91683997, 9165973991, 5380722 ####[facility] (DEFAULT)[address] [place] [address] WBC 6.3 x10 Normal 3.5-10.5 [facility] Comment on above: Performed By: #### 1 [id number], 5514438215, 9415954154, 5413842, 96730663, 5478574968, 8085508 ####[facility] (DEFAULT)[address] [place] [address]1[facility] Standardon 01-14-2024 Breakpoint Chem Normal [facility] Comment on above: Performed By: #### 1 [id number], 4764626041, 7101920351, 1990709, 53416956, 6228336217, 4968402 ####[facility] (DEFAULT)[address] [place] [address] 78102 eGFR Non AA >60 Invalid Interpretation Code [facility] Comment on above: Performed By: #### 1 [id number], 6089423025, 1010058449, 3056961, 50521705, 6863352609, 4325137 ####[facility] (DEFAULT)[address] [place] [address] 23489 eGFR AA >60 Invalid Interpretation Code [facility] Comment on above: Performed By: #### 1 [id number], 6667475643, 9689543710, 6960693, 06881580, 0996220945, 2921527 ####[facility] (DEFAULT)[address] [place] [address] 51105 Albumin [Mass/Vol] 3.6 g/dL Normal 3.5-5.0 [facility] Comment on above: Performed By: #### 1 191000936, 4971939822, 6731070188, 5291454, 04881659, 7639044646, 7131463 ####[facility] (DEFAULT)[address] [place] [address] 77855 Albumin/Globulin [Mass ratio] 1.2 {ratio} Low 1.4-2.6 [facility] Comment on above: Performed By: #### 1 [id number], 3694454200, 3262311804, 4090934, 46576658, 8603498525, 5794641 ####[facility] (DEFAULT)[address] [place] [address] 93249 Alk Phos 73 IU/L Normal 32-91 [facility] Comment on above: Performed By: #### 1 835011238, 6468181528, 5462776667, 9823522, 99888592, 5187393644, 9148232 ####[facility] (DEFAULT)[address] [place] [address] 59031 ALT [Catalytic activity/Vol] 16.0 U/L Normal 14.0-54.0 [facility] Comment on above: Performed By: #### 1 [id number], 1378612520, 1564904259, 7413806, 33339152, 4802727067, 7416337 ####[facility] (DEFAULT)[address] [place] [address] 31708 Anion gap [Moles/Vol] 6.9 mmol/L Normal 5.0-19.0 [facility] Comment on above: Performed By: #### 1 399980189, 1637334386, 9389740229, 2925097, 00760092, 2177929397, 5187921 ####[facility] (DEFAULT)[address] [place] [address] 62845 AST [Catalytic activity/Vol] 19 U/L Normal 15-41 [facility] Comment on above: Performed By: #### 1 [id number], 1597085855, 2775635198, 5417465, 33389763, 9415298014, 5828583 ####[facility] (DEFAULT)[address] [place] [address] 09564 Bili Total 0.2 mg/dL Low 0.3-1.2 [facility] Comment on above: Performed By: #### 1 535884391, 2175118054, 0518890323, 7469270, 53254038, 7563346467, 8664369 ####[facility] (DEFAULT)[address] [place] [address] 08374 Calcium [Mass/Vol] 8.4 mg/dL Low 8.9-10.3 [facility] Comment on above: Performed By: #### 1 524691033, 6716386913, 7109396807, 0644469, 75834349, 0154295691, 8444494 ####[facility] (DEFAULT)[address] [place] [address] 22142 Chloride [Moles/Vol] 108 mmol/L Normal 101-111 [facility] Comment on above: Performed By: #### 1 592431389, 5402806623, 1966444295, 9803747, 08491292, 5591225825, 7683819 ####[facility] (DEFAULT)[address] [place] [address] 67816 CO2 [Moles/Vol] 24 mmol/L Normal 21-32 [facility] Comment on above: Performed By: #### 1 841140932, 4390095560, 5699935382, 3823612, 57748962, 0196725287, 0721725 ####[facility] (DEFAULT)[address] [place] [address] 32192 Creatinine [Mass/Vol] 0.78 mg/dL Normal 0.60-1.30 [facility] Comment on above: Performed By: #### 1 781285761, 9384214539, 6067806930, 9482004, 22301900, 2577763671, 3132482 ####[facility] (DEFAULT)[address] [place] [address] 18476 Globulin (S) [Mass/Vol] 2.9 g/dL Normal 1.5-4.3 [facility] Comment on above: Performed By: #### 1 [id number], 1732944914, 2531717512, 0499652, 60523948, 9363735756, 9960507 ####[facility] (DEFAULT)[address] [place] [address] 87754 Glucose [Mass/Vol] 88.0 mg/dL Normal 74.0-118.0 [facility] Comment on above: Performed By: #### 1 [id number], 6580359440, 8292267911, 2252939, 62735371, 4847431667, 7342342 ####[facility] (DEFAULT)[address] [place] [address] 12922 Osmolality 270 mOsm/L Invalid Interpretation Code [facility] Comment on above: Performed By: #### 1 [id number], 9610265620, 9316704883, 8300310, 10304102, 8282464134, 8915502 ####[facility] (DEFAULT)[address] [place] [address] 68519 Potassium [Moles/Vol] 3.9 mmol/L Normal 3.6-5.1 [facility] Comment on above: Performed By: #### 1 [id number], 1521420426, 8829091425, 4042577, 83409015, 0791249170, 8067402 ####[facility] (DEFAULT)[address] [place] [address] 46874 Protein [Mass/Vol] 6.5 g/dL Normal 6.5-8.1 [facility] Comment on above: Performed By: #### 1 [id number], 0849394412, 0690760159, 7060402, 72021841, 8710035221, 7963573 ####[facility] (DEFAULT)[address] [place] [address] 19813 Sodium [Moles/Vol] 135.0 mmol/L Low 136.0-144 . 0 [facility] Comment on above: Performed By: #### 1 897724473, 2245878239, 4245583699, 8210006, 98326643, 1076589355, 8832216 ####[facility] (DEFAULT)[address] [place] [address] 20915 Urea nitrogen [Mass/Vol] 15 mg/dL Normal 8-26 [facility] Comment on above: Performed By: #### 1 127805615, 3198851476, 6962424846, 2484982, 82529197, 0959656379, 4912307 ####[facility] [facility] (DEFAULT)[address] [place] [id number] Urea nitrogen/Creatinine [Mass ratio] 19.2 mg/mg High 4.6-16.2 [facility] Comment on above: Performed By: #### 1 [id number] ####[facility] (DEFAULT)[address] [place] [id number] Angiography Headon 2023 Ct angiography head w/contrast/noncontrast EXAM: CT Angiography Head HISTORY: Persistent headache not improving with pain medications. Normal CT scan brain without contrast COMPARISON: None. TECHNIQUE: Axial postcontrast CT imaging of the head was performed with coronal and sagittal and maximum intensity projection reformats. This CT exam was performed using one or more of the following dose reduction techniques: Automated exposure control, adjustment of the MA and/or kV according to patient size, or use of iterative reconstruction technique. FINDINGS: Anterior circulation: No evidence of aneurysm, significant stenosis, or occlusion. Vertebrobasilar system: No evidence of aneurysm, significant stenosis, or occlusion. Venous sinuses: Grossly patent. Additional comments: No abnormal intracranial enhancement. IMPRESSION: Unremarkable CTA head. Final Dictated by: Racheal Mathis DO Dictated DT/TM: 01/14/24 8:09 Signed (Electronic Signature): Racheal Mathis DO 01/14/24 8:11 am Technologist: FREEMAN [facility] CT Head or Brain w/o Contras ton 01-14-2024 CT Head or Brain w/o Contrast EXAMINATION: CT Head or Brain w/o Contrast INDICATION: 43 years old; Female. Sudden onset headache which woke her from sleep history of migraine TECHNIQUE: CT Head (ax/cor/sag reformats). Ionizing radiation dose reduced via iterative reconstruction/FBP blend and body size kV/mA adjustment. Comparison: None FINDINGS: POSTOPERATIVE CHANGES: None. BRAIN PARENCHYMA: No intraparenchymal or extra-axial hemorrhage. No mass effect. No midline shift or herniation. Normal lofton/white differentiation. VENTRICLES/EXTRA-AXIAL SPACES: Normal for patient's age. SINUSES/MASTOIDS: Sinuses are clear. Mastoids and middle ears are clear. Nasal septal deviation to the left with spur formation. MSK: No displaced or depressed calvarial fracture. OTHER: No hyperdense intraluminal thrombus. IMPRESSION: 1. No acute intracranial abnormality. No hemorrhage or mass effect. Final Dictated by: Yung Wright MD Dictated DT/TM: 01/14/24 6:44 Signed (Electronic Signature): Yung Wright MD 01/14/24 6:53 am Technologist: AKLYAN [facility] ED Clinical Summaryon 2023 ED Clinical Summary [facility] - Emergency Department [address] [place] [address] [id number] ED Clinical Summary PERSON INFORMATION Name: KARUNA DUMONT Age: 43 Years Sex: FEMALE : 1980 MRN: Acct#: Visit Reason: Headache; HEADACHE Arrival: 01/14/2024 04:59:27 Discharge: 01/14/2024 09:46:00 LOS: 000 04:47 Check In: 01/14/2024 04:59:27 Checkout:01/14/2024 09:46:00 Address: [address] [facility] [place] [address] PCP: Johnathon Winter MD PROVIDER INFORMATION Provider Role Assigned Unassigned Dot Cantu COMPUTATIONAL SCIENTIST Nurse 01/14/2024 05:00:50 Santy Mckeon MD ED Provider 01/14/2024 05:02:54 Maribel Yousif COMPUTATIONAL SCIENTIST Nurse 01/14/2024 07:21:53 Joaquim Gary MD ED Provider 01/14/2024 08:22:45 VITALS INFORMATION Vital Sign Triage Latest Temperature Tympanic Temperature Temporal Artery Pulse Rate 88 bpm 91 bpm O2 Sat 99 % 99 % Respiratory Rate 18 br/min 18 br/min Blood Pressure /105 mmHg /105 mmHg MEDICAL INFORMATION Medications Given: Medication Dose Route HYDROmorphone (Dilaudid) 1 mg Intramuscular diphenhydrAMINE 50 mg Intramuscular SUMAtriptan (Imitrex) 6 mg Subcutaneous metoclopramide 10 mg Intramuscular acetaminophen/butalbital /caffeine (acetaminophen/butalbita l/caffeine 325 mg-50 mg-40 mg oral tablet) 2 tab(s) Oral Sodium Chloride 0.9% intravenous solution 500 mL 500 mL Initial Volume 250 mL/hr IV Left Antecubital Fossa dexAMETHasone 10 mg IV Push iohexol (Omnipaque 350 100 ml) 350 mg IV Push Allergy Information: No known allergies PHYSICIAN DOCUMENTATION Patient: KARUNA DUMONT Age: 43 years Sex: FEMALE : 1980 Associated Diagnoses: Sudden onset of severe headache; Headache, unspecified Author: Joaquim Gary MD Basic Information Time seen: Date & time 01/14/2024 09:20:00. History source: Patient. Arrival mode: Private vehicle. History limitation: None. Additional information: Chief Complaint from Nursing Triage Note : Chief Complaint 01/14/2024 5:06 EDT Chief Complaint woke up this morning with a bad headache 11/10. Usually does not get headaches. No nausea or vomiting, NOS . History of Present Illness I have assumed care of the patient from Dr. Mckeon, who has discussed the clinical presentation, work-up, and ED course thus far. I have reviewed the patient?s medical record and ED course and agree with all aspects of care thus far. 43-year-old female presented to ER for evaluation of headache. 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 Stated headache is worse, not typical. Had been seen by Dr. Mckeon. Workup has been done. CT brain without contrast was negative. There is some initial concern, regarding other possibility so CT brain with angiogram also obtained. CBC chemistry profile and various other lab work is also initiated. Treatment headache including various combination as noted, hydromorphone, Benadryl, antiemetic, and subsequently IV with dexamethasone. Signed out to myself pending diagnostic workup of CT angiogram. On reassessment at 9:20 AM, the patient was sleeping. Woke easily. at bedside. CT brain and CTA report is negative for acute process. No aneurysm. No mass. No bleed. CBC, chemistry profile, sed rate, essentially normal. Patient reported that her symptoms are improving. The headache may have been triggered by the weather front that we have been having started last night. However, multifactorial. No specific findings today indicating any further intervention required or hospitalization. Stable for discharge outpatient follow-up, continue with supportive care and headache medication. She had been prescribed. Contact PCP for follow-up. Patient and indicate Regarding treatment plans and follow-up Health Status Allergies: Allergic Reactions (Selected) No known allergies. Medications: (Selected) Inpatient Medications Ordered Sodium Chloride 0.9% intravenous solution 500 mL: 250 mL/hr, IV Documented Medications Documented Mounjaro 7.5 mg/0.5 mL subcutaneous solution: 7.5 mg, Subcutaneous, INJECT 0.5 ML UNDER THE SKIN 1 (ONE) TIME PER WEEK FOR 28 DAYS. Qelbree 100 mg oral capsule, extended release: 200 mg = 2 cap(s), Oral, Daily, 0 Refill(s) amphetamine-dextroamphet amine 20 mg oral tablet: 20 mg = 1 tab(s), Oral, TAKE 1 TABLET BY MOUTH EVERY DAY AT MIDDAY amphetamine-dextroamphet amine 30 mg oral capsule, extended release: 30 mg = 1 cap(s), Oral, qAM, 0 Refill(s). Past Medical/ Family/ Social History Medical history: No active or resolved past medical history items have been selected or recorded.. Surgical history: No active procedure history items have been selected or recorded.. Family history: No family history items have been selected or recorded.. Social history: Social & Psychosocial Habits Alcohol 08/23/2023 Alcohol Use: Past Comment: rarely - 03/09/2023 11:23 - Christiano LEAL, Reyna 01/14/2024 Alcohol Use: Past Substance Use (more content not included)... Normal [facility] ED Note - Physicianon 2023 ED Note - Physician Patient: RAQUEL DUMONT Age: 43 years Sex: FEMALE : 1980 Associated Diagnoses: Sudden onset of severe headache; Headache, unspecified Author: Joaquim Gary MD Basic Information Time seen: Date & time 01/14/2024 09:20:00. History source: Patient. Arrival mode: Private vehicle. History limitation: None. Additional information: Chief Complaint from Nursing Triage Note : Chief Complaint 01/14/2024 5:06 EDT Chief Complaint woke up this morning with a bad headache 11/10. Usually does not get headaches. No nausea or vomiting, NOS . History of Present Illness I have assumed care of the patient from Dr. Mckeon, who has discussed the clinical presentation, work-up, and ED course thus far. I have reviewed the patient?s medical record and ED course and agree with all aspects of care thus far. 43-year-old female presented to ER for evaluation of headache. 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 Stated headache is worse, not typical. Had been seen by Dr. Mckeon. Workup has been done. CT brain without contrast was negative. There is some initial concern, regarding other possibility so CT brain with angiogram also obtained. CBC chemistry profile and various other lab work is also initiated. Treatment headache including various combination as noted, hydromorphone, Benadryl, antiemetic, and subsequently IV with dexamethasone. Signed out to myself pending diagnostic workup of CT angiogram. On reassessment at 9:20 AM, the patient was sleeping. Woke easily. at bedside. CT brain and CTA report is negative for acute process. No aneurysm. No mass. No bleed. CBC, chemistry profile, sed rate, essentially normal. Patient reported that her symptoms are improving. The headache may have been triggered by the weather front that we have been having started last night. However, multifactorial. No specific findings today indicating any further intervention required or hospitalization. Stable for discharge outpatient follow-up, continue with supportive care and headache medication. She had been prescribed. Contact PCP for follow-up. Patient and indicate Regarding treatment plans and follow-up Health Status Allergies: Allergic Reactions (Selected) No known allergies. Medications: (Selected) Inpatient Medications Ordered Sodium Chloride 0.9% intravenous solution 500 mL: 250 mL/hr, IV Documented Medications Documented Mounjaro 7.5 mg/0.5 mL subcutaneous solution: 7.5 mg, Subcutaneous, INJECT 0.5 ML UNDER THE SKIN 1 (ONE) TIME PER WEEK FOR 28 DAYS. Qelbree 100 mg oral capsule, extended release: 200 mg = 2 cap(s), Oral, Daily, 0 Refill(s) amphetamine-dextroamphet amine 20 mg oral tablet: 20 mg = 1 tab(s), Oral, TAKE 1 TABLET BY MOUTH EVERY DAY AT MIDDAY amphetamine-dextroamphet amine 30 mg oral capsule, extended release: 30 mg = 1 cap(s), Oral, qAM, 0 Refill(s). Past Medical/ Family/ Social History Medical history: No active or resolved past medical history items have been selected or recorded.. Surgical history: No active procedure history items have been selected or recorded.. Family history: No family history items have been selected or recorded.. Social history: Social & Psychosocial Habits Alcohol 08/23/2023 Alcohol Use: Past Comment: rarely - 03/09/2023 11:23 - Christiano LEAL, Reyna 01/14/2024 Alcohol Use: Past Substance Use 08/23/2023 Substance use: Never 01/14/2024 Substance use: Never Tobacco 08/23/2023 Smoking tobacco use: Never tobacco user Smokeless tobacco use: Never 01/14/2024 Smoking tobacco use: Never tobacco user Electronic Cigarette/Vaping 08/23/2023 Electronic Cigarette Use: Never 01/14/2024 Electronic Cigarette Use: Never . Problem list: No qualifying data available . Physical Examination Vital Signs Vital Signs 01/14/2024 9:25 EDT Peripheral Pulse Rate 91 bpm SpO2 99 % Oxygen Therapy Room air 01/14/2024 8:47 EDT Peripheral Pulse Rate 65 bpm SpO2 100 % Oxygen Therapy Room air 01/14/2024 8:39 EDT Peripheral Pulse Rate 63 bpm SpO2 99 % Oxygen Therapy Room air 01/14/2024 8:14 EDT Peripheral Pulse Rate 63 bpm Respiratory Rate 18 br/min Systolic Blood Pressure 133 mmHg HI Diastolic Blood Pressure 98 mmHg HI Mean Arterial Pressure, Cuff 110 mmHg HI Mean Arterial Pressure Cuff 108 mmHg SpO2 100 % Oxygen Therapy Room air 01/14/2024 5:06 EDT Temperature Oral 36.7 DegC Peripheral Pulse Rate 88 bpm Respiratory Rate 18 br/min Systolic Blood Pressure 158 mmHg HI Diastolic Blood Pressure 105 mmHg HI SpO2 99 % Oxygen Therapy Room air . Measurements 01/14/2024 5:06 EDT Height 165.10 cm Weight 86.18 kg Weight Dosing 86.180 kg Body Mass Index Measured 31.62 kg/m2 . Impression and Plan Diagnosis Sudden onset of severe headache ([id number] R51.9, Discharge, Medical) Headache, unspecified ([id number] R51.9, Medical) Plan Condition: Improved, Stable. Disposition: Disch (more content not included)... Normal [facility] ED Patient Summaryon 024 ED Patient Summary [facility] - Emergency Department [address] [place] [address] PATIENT DISCHARGE INSTRUCTIONS Patient Information Name: KARUNA DUMONT Age: 43 Years Date of : 1980 Reason For Visit: Headache; HEADACHE Arrival Time: 01/14/2024 04:59:27 Primary Care Physician: Johnathon Winter MD Attending Physician: Santy Mckeon MD Comment: Visit Diagnosis: Diagnoses This Visit Headache ([id number]) Headache, unspecified (R51.9) Sudden onset of severe headache (R51.9) The Pharmacy at [facility] is open Monday through Monday from 9A to 6P and Monday and Monday from 9A to 5P Prescription Information: If you have been given a prescription for narcotics, seek immediate medical attention if you have any difficulty breathing or any sudden status changes such as confusion and sleepiness. If you or anyone you know is experiencing suicidal thoughts, mental health, alcohol and/or drug addiction problems; contact the Mental Health & Recovery Board [facility] 24/10 Crisis Hotline -Text 0UBNK pa 250642. If you received any narcotics, sedation, or [...] sign any legal documents With: Address: When: Johnathon Laura [address] [place] [address], [place] [place] [address] Business (1) Within 2 to 4 days Comments: You were seen in the emergency room department for evaluation of a headache. There are many different types of headache. Some headaches are migraine. Others are due to tension headache, sinus headache or cluster headache. Some headaches are generalized without specific diagnosis or cause. These types of headache, while uncomfortable are more benign. Examples of emergency headache may include severe infection, meningitis, intracranial hemorrhage or stroke. On your evaluation today, no specific emergency was discovered. You were treated with medications to help your symptoms. If your headache change in pattern, or if you develop more severe headache, or you have the worse headache of your life, you should return to the emergency department for reevaluation. Additional considerations include difficulty with walking, difficulty with talking, persistent vomiting, changes in your ability to think or act normally. You should follow-up with your family doctor or specialist for reevaluation each time you have been to the emergency department for treatment of your headache. Additional treatment or diagnostic workup may be necessary. Review headache instructions provided. Keep yourself well hydrated. Resume your routine medication as instructed by your doctor. Contact your family doctor or the emergency department you have any questions or concerns regarding your treatment today. Medication Information: The exam and treatment you received today in the [facility] Emergency Department were for an urgent problem and are not intended as complete care. It is important for you to follow up with a doctor, nurse practitioner, or physician?s shipping and receiving assistant for ongoing care. If your symptoms become worse or you do not improve as expected and you are unable to reach your usual health care provider, you should return to the Emergency Department, we are available 24 hours a day. For those patients who have received Radiology results, the interpretation of your X-ray as given to you by our Emergency Department physician is only a preliminary report. The Radiologist will review your films and if there is a change in the diagnosis you will be notified by phone. Please make sure you have provided a working phone number so we can reach you if necessary. In the event that you had a lab culture while you were a patient in the Emergency Department, you will be notified by phone if there is a need to change your antibiotic. Please make sure you have provided a working phone number so we can reach you if necessary. [facility] Emergency Department has provided you with a complete list of medications post discharge. Please inform your meter tester primary/provider of your visit and for further instruction [...] TABLET BY MOUTH EVERY DAY AT MIDDAY. amphetamine-dextroamphet amine (amphetamine-dextroa (more content not included)... Normal [facility] Extra Greenon 01-14-2024 Tube Collected Yes Invalid Interpretation Code [facility] Comment on above: Performed By: #### 1 [id number] ####[facility] (DEFAULT)[address] [place] [address] Sed Rateon 01-14-2024 Sed Rate 8 mm/hr Normal 0-20 [facility] Comment on above: Performed By: #### 1 [id number] ####[facility] (DEFAULT)[address] [place] [address] Jose 12-06-2023 L Specimen: [id number] Received: 12/07/23 Status: NATHAN Betancourt: [id number] Spec Type: Surgical Subm Dr: Sanjeev Lopez Tissues: A Endometrium - Biopsy (EMBX) Procedures: HE/2, Gross/Micro L4 Age/ Patient Sex Location Account Attending Physician JuliaKaruna Radha 43/F KATINA [id number] Sanjeev Lopez SPEC NUM: [id number] RECD: 12/07/23 STATUS: NATHAN GUZMÁN NUM: [id number] GENEVA: 12/06/23- SUBM DR: Sanjeev Lopez ENTERED: 12/07/[address] [facility] [address]: Bert,Sandra SPEC TYPE: Surgical DEPT: [facility]OLDAN THOMPSON ENTERED BY: [id number] RECV BY: [id number] ORDERED: HE/2, Gross/Micro L4 ORDERED: HE/2, Gross/Micro [...] are performed supporting the above interpretation Specimen: [id number] Received: 12/07/23 Status: NATHAN Burnsroberto Num: [id number] Spec Type: Surgical Subm Dr: Sanjeev Lopez Tissues: A Endometrium - Biopsy (EMBX) Procedures: HE/2, Gross/Micro L4 Patient: Karuna Dumont [id number] (Continued) Specimen: [id number] Received: 12/07/23 (Continued) Signed (signature on file) ChinAntonia Kirby MD 12/12/23 2158 Specimen: [id number] Received: 12/07/23 Status: NATHAN Guzmán Num: [id number] Spec Type: Surgical Subm Dr: Sanjeev Lopez Tissues: A Endometrium - Biopsy (EMBX) Procedures: Cheyanne HERNANDEZ/Kwame L4 Patient: Karuna Dumont [id number] (Continued) Specimen: [id number] Received: 12/07/23 (Continued) CPT Codes 54243 Specimen: [id number] Received: 12/07/23 Status: NATHAN Guzmán Num: [id number] Spec Type: Surgical Subm Dr: Sanjeev Lopez Tissues: A Endometrium - Biopsy (EMBX) Procedures: MELANIE/Cheyanne Torres/Kwame L4 Patient: Karuna Dumont [id number] (Continued) Signed (signature on file) Frida Kirby MD 12/12/23 [id number] Normal [facility] Free testosterone measuremen t by LC-MS/MSon 11-29-2023 Testosterone Free [Mass/Vol] <0.2 pg/mL 0.0-4.2 [facility] Comment on above: Performed at: [facility] [address] [id number] Director: Theron Roblero PhD, Phone: [phone] at: [facility] [id number] Director: Katelynn Macdonald MD, Phone: [phone] No Panel Informationon 11-28 Dehydroepiandrosterone Sulfate 40.8 ug/dL Abnormal 57.3-279.2 [facility] Sex Hormone Binding Globulin 60.9 nmol/L 24.6-122.0 [facility] Comment on above: Performed at: [facility] [address] [id number] Director: Theron Roblero PhD, Phone: [phone] Testosterone Level <3 ng/dL Abnormal 8-60 [facility] Activated partial thrombopla stin time (aPTT) in platelet poor plasma by coagulation aon 10-25-2023 aPTT Coag (PPP) [Time] 29.5 s 22.3-36.2 Fi [facility] Basophils Auto (Bld) [#/Vol] on 10-25-2023 Basophils (Bld) [#/Vol] 0.1 10 3/uL 0.0-0.1 [facility] Basophils/100 WBC Auto (Bld) on 10-25-2023 Basophils/100 WBC (Bld) 1.1 % 0.2-2.0 F [facility] Eosinophils/100 WBC Auto (Bl d)on 10-25-2023 Eosinophils/100 WBC (Bld) 2.2 % 0.9-7.0 [facility] Erythrocyte distribution wid th Auto (RBC) [Ratio]on 10-25-2023 Erythrocyte distribution width (RBC) [Ratio] 14.5 % 11.0-15.0 [facility] Glucose mean value [Mass/vol ume] in Blood Estimated from glycated hemoglobinon 10-25-2023 Average glucose Estimated from glycated hemoglobin (Bld) [Mass/Vol] 88 mg/dL [facility] Hematocrit Auto (Bld) [Volum e fraction]on 10-25-2023 Hematocrit (Bld) [Volume fraction] 39.8 % 36.0-48.0 [facility] Hemoglobin [Mass/volume] in Bloodon 10-25-2023 Hemoglobin (Bld) [Mass/Vol] 12.6 g/dL 12.0-16.0 [facility] INR in Platelet poor plasma by Coagulation assayon 10-25-2023 INR Coag (PPP) [Relative time] 0.99 {INR} [facility] Comment on above: DESIRED INR:2.0-3.0 CONDITIONS NOT LISTED BELOW2.5-3.5 FOR PROSTHETIC HEART VALVE REPLACEMENT2.5-3.5 RECURRENT THROMBOSIS Laboratory - Chemistry and C hemistry - challengeon 10-25-2023 Free T4 [Mass/Vol] 1.24 ng/dL 0.76-1.46 [facility] TSH Qn 1.497 m[IU]/L 0.358-3.74 0 [facility] Laboratory - Hematology and Cell countson 10-25-2023 HbA1c (Bld) [Mass fraction] 4.7 % 4.5-6.2 [facility] Comment on above: ADA RECOMMENDED LIMI T 4.0 - 6.0ADA THERAPEUTIC TARGET < 7.0ACTION SUGGESTED> 7.0 Immature granulocytes/100 WBC (Bld) 0.2 % 0.0-0.5 [facility] Leukocytes [#/volume] correc mini for nucleated erythrocytes in Blood by Automated counon 10-25-2023 WBC corrected for nucl RBC Auto (Bld) [#/Vol] 5.5 10 3/uL 4.0-11.0 [facility] Lymphocytes Auto (Bld) [#/Vo l]on 10-25-2023 Lymphocytes (Bld) [#/Vol] 1.8 10 3/uL 1.2-3.8 [facility] Lymphocytes/100 WBC Auto (Bl d)on 10-25-2023 Lymphocytes/100 WBC (Bld) 33.3 % 20.5-60.0 [facility] MCH Auto (RBC) [Entitic mass ]on 10-25-2023 MCH (RBC) [Entitic mass] 27.9 pg 26.7-34.0 [facility] MCHC Auto (RBC) [Mass/Vol]on 10-25-2023 MCHC (RBC) [Mass/Vol] 31.7 g/dL 29.9-35.2 [facility] MCV Auto (RBC) [Entitic vol] on 10-25-2023 MCV (RBC) [Entitic vol] 88.1 fL 81.0-99.0 F [facility] Monocytes Auto (Bld) [#/Vol] on 10-25-2023 Monocytes (Bld) [#/Vol] 0.3 10 3/uL 0.3-0.8 [facility] Monocytes/100 WBC Auto (Bld) on 10-25-2023 Monocytes/100 WBC (Bld) 5.4 % 1.7-12.0 F [facility] Neutrophils Auto (Bld) [#/Vo l]on 10-25-2023 Neutrophils (Bld) [#/Vol] 3.2 10 3/uL 1.4-6.5 [facility] Neutrophils/100 WBC Auto (Bl d)on 10-25-2023 Neutrophils/100 WBC (Bld) 57.8 % 43.0-75.0 [facility] No Panel Informationon 10-24 Eosinophils # (Auto) 0.1 10 3/uL 0.0-0.7 [facility] Human Chorionic Gonadotropin, Quant <1 mIU/mL [facility] Comment on above: 5-50 0.2-1 EXSL18-75 0 1-2 LMPTM483-2,000 2-3 NSGJL449-80,000 3-4 WEEKS1,000-50,000 4-5 WEEKS10,000-100,000 5-6 WEEKS15,000-200,000 6-8 WEEKS10,000-100,000 2-3 MONTHS Immature Granulocyte # (Auto) 0.01 10 3/uL 0.00-0.03 [facility] Platelet mean volume Auto (B ld) [Entitic vol]on 10-25-2023 Platelet mean volume (Bld) [Entitic vol] 9.7 fL 9.5-13.5 [facility] Platelets Auto (Bld) [#/Vol] on 10-25-2023 Platelets (Bld) [#/Vol] 300 10 3/uL 150-450 [facility] Prothrombin time (PT)on 10-02 PT Coag (PPP) [Time] 10.5 s 9.0-11.6 [facility] RBC Auto (Bld) [#/Vol]on RBC (Bld) [#/Vol] 4.52 10 6/uL 4.20-5.40 [facility] Coding Summaryon 09-01-2023 Coding Summary HTMLBase 64 BszlhjlrDBp6cZx+PGhlYWQ+ TU5NVPKpU08tqSEvsG6mA4DX TElOSywgQVBQTElOSyIgbmFt SB9xbBKjGBXu IC8+PV3fPKTnXmwvpWShz6C7 gAB9N70xht5lOMwudJF4BARb BuJdnbobx4tupJc7IDvlSpow OyBt NHWbkF85FEZ8qZ78Vg06pPHp mBQti4pliCv5NtHaPMEyPJJ3 dYxyCJrrk8PiFUMiP95mrWSb c2U6 RIOqqHddjWBpUjRphXN2vB0m ZJtgbmahw4txtguoOph8wz50 tZYbe2W6tHE3A2BphhA4XZMx bGQg TybejSBElL5irdyas8hvoqlk NtEkGFQmOPj0PDm7BHCguYns IrSdVG05CKN7NLSasvNcT6Ha LWFs xNiaDpV7a8W9Nq3ZR1JWHejh E1CMEWQWVZczwHC+ZK53xs65 J0SrKgezAoq9VMWoJKO9kCG4 aD0n HMYkSEstn2T4uSI8M5IwswCl kx2qi8ogZTCuSUpiH12eiDMy l4P0RPZhcCJ6CKTduUfbOeVc aG93 Oyc+DWZjmPiii5SgPeilf9qz k5nuePm9YgpgYIUciuVmrOqc PUI4b6AmIn4yJXXpqRZ5qZP6 aD0i LhKwTnI5OJmcJ336NdVfxFQu ZxjmB52iM8IceFX+PHRyPjx0 MHTlcKupYW7pU8FrDRCxauyy bGVm ePbyES5cCQVwjggcCIZueU3z MPLiZ9u1QhYgWlG4LDdiW0Wz KGLsrhtyUl21mK7aCeWiFdZ1 MGlu N6DxkwL9MIFeyHPyZLyyLTI6 O85pr1Q0LMWaBDLxEZZ0eEA3 pI3iqFqqekyxuCDguCoggqYn dGlj GCfuOJccR061FMZweBprFvCm ZGluZyBEYXRlOiAgMDUvMzEv MjAyNDwvdGQ+ETOrYLT7kKnj PSAn uBEcCJkaYy6qeYopyMlkPM5q HSQvdxgbHKCwnH3tJGXtsMEh bTtkSE7vWJNwajiks438ZaXn MHB0 ISFcvUNfB6DifO9iMsRnAJMb HENaS8LabFEtGNwgA597QWon TiA0WIRfnzZrX0MvZUBxzYaz OiB0 b4W2Eh3Yy6RpphroZ3FbtLQa VyMrJkcnGNe1K3DpAjbidYO+ ZR81DJXdAY41EEn4ORG5iSea PSdi BHKrZ1DvqM1aMlVeUFApERIs Oyc+PHRhYmxlIHdpZHRoPScx LSPdMoTeuLggDP4xNu7jXHSb LWNv nYixlQJiFjZuu4wfWEIkKKge KI4bcEmkI3XpeWJ3PGYvn6p0 As73E26vY3YmwZB+PGNvbCB3 aWR0 gF6wEfVgZxO8LBcmN174YpGn kNKsYovro4vjn9xloYa8NoP4 RWVnxiYqmLhoEER1d1CdIw02 Y29s IHdpZHRoPSIxNSUiIHZhbGln wk2ujA0oMe4+IMBleLP7mQB0 uA1jMfQrFrB2XIbiH235GoKf cCIv Nrqqf7nlp7xthLd8EtBkEYPm krKibZdnLGS9w8NgLd78I5Ki tZkks3ZjYry3kt27wVRej5J2 bGU9 K1SlQRXhtwajoFSolUohMF6a JJVhlnskVPLigE2jIVZlJ6b0 SbXhWlS5VMotH6UudyA8MRHg bGQg RSKlrBCXvS2nocarw2wezsro MyGnFUDfAWx4QZc7ZPObyFnm ToMcULM4HcN2MCN4fJLbnY1s bGln ruwwoA7pBpl+COY2pBLfyXME KI1yLfaegIE+PJEaKNZ9oKpe ZLkvIUHwrC5lCVExG4v1AsNv LjA1 AXdpG6DadbY8ZRTqyQPdYNGz zAZDmS5bbluyz9bjapqeIsQc RURdPHf5AJi9LBYcnFhtCxOy ZWZ0 BlP7DDM8iMDhwQ2seZdwatny uW3wBrk+NbbdoXorRAF3LRq4 H6AkUeg7ZVDwvJuqKP8boXTs ZGlu So5guSjosJgrYF4qMDVovnbo s455FpLel0xvCJMjdLXlNZwb GOB4I86pu8J4SZRkGGIgMFQ8 dGV4 zW4jiUqmuoldzTUmpQoiewFc tWujRDlxRVksD995IPCvwHuu VrKjLEn4M7WiElt2AUYieQzy ZT0n xZZkHTwvFu2gbClmyCvfMD6s IOLjmmwdc941HjVco9bcZKWn aJZnBCoeXNM0O50ow1T8AUPu MDAw ZNU6oGM3dI0nmYcitmikqQEp qZrbvdCfkUdsBRpfRRsvM687 YSCcsKkdAoZdwZg4Q9BpEai5 ZCBz nJaoQN0hiZTkVOnkTe6alHxv aEmfZG2tXDTnbfwwn832SsRn b9yaMINjzAKvEHcbAAY7Q34y b3I6 WRXsBEBuVCS6kIJ0lJ6qfQqs bjogbGVmdDsgdmVydGljYWwt KNqpV829UUWypBlfXuQfjUmy bnQg PHojTVr4F7BrKilktXQ+PC90 OWEpTQ40uYJdcYIrj5aqkNk9 TuJqYGGlWMD4uDhsDIlih3Da ZXIt H53ovLZnf2F8UGJhhZfzaPAr HcExqHO6vC0rOWzgdkjjm5sy rldyEeakv9ynux39cO22M61y IHdp RLPqOMPtYFTjBDIwdPenzw2y vT9hGx0+LBVrkQR6fBF9rK7z ZAPyHgL6GYthH249YcNehOGn Pjxj y6tns2yzlAp1JwV5QJEdpzKj iGcoJJZ0t1YfIl41W57lQCap NRBiWMTvKZFjLSIfzHpuor5i dG9w Ii8+ENCepBF9tUS7rQ1pJrSj KuG5KBnaH657BmHqkNHcYxys V22zN5BmwFQ+LLUqQtx0CNJl dHls FZ8ntTYaGEsaDl9dCWT5EfQz PsJmYHsnD7FoWYJtwmpoutvg pDR3BJSkDODrgG32Hi4cgKao MTBw kZPUnW9anmqgn0cuggijGiYo CWDuZTm3PIh9BLGlyUrvFxTm UAL9XlI4HAQ3rHXggR9unOmj bjog qK8jS8GyNYDtsmubJn05gY0y IbJuKbV6OPstDys+Y29EF4tG LCBBTUFOREEgREFXTjwvdGQ+ PHRk ZHL1uQbgULncUZQamF0jIOQb J8s3UuLdJqB5EOnkY9WdKJKd npzmYx31gL4vUzChMuQ1QLhm O2Zv gfS0YFAdyVVfSIegGGH1R34b e9E9GVZsXENfNDV2cAT9fZ7n bGlnbjogbGVmdDsgdmVydGlj YWwt KLdoH247NOKgfElvLvT3AyXh EuL4QWG7Y2HpFck4XMDoxLhk MA5buQUtCXxuDe8diZoxuOdw MC4w EDUhevzdMJSsmF6aRHAmwUNe eQsgEP5cUJNxrbqaa207XbSe MZB5WDFpwZFgJ9GwzQ8dSjQl MDAw AEIbX3YamFXkWXrnV362PLka UrT3TTJjriNmR9SrORJguGnb DdU4o2I5Le91CUQUXQEobitg dGQ+ ALLaOKM3uHzpUAncQMXgaR0s XIMmK0f3NhDaOyR6DVdaI0Mf ZMXurnkzQf14bK5eHnNzYwS3 MGlu X4BkoxT3VUDnxFOlEElsTVB5 K21re1Q7QKOaKBLiVLZ3bZN3 aV7gpMlzhzirjEAksYampqIp dGlj ETzbGZhhF903SQTcvEsaWzHH TUFMRTwvdGQ+NHCpLEV3gEkx BWofKIXkiP0pYTFeL9z5UaCr LjA1 ROqaM8AcERPuhvcxOu10hW5i XxJfDfY1AOkkC0OfuiY3SUMw cQGzWZydPIK7A81kx9O9JTCc MDAw JXP0mSS7eT1cjWxaqdyyqOBk lVojuvVjeZsaOXpoCLcsG247 XZBhfIpgVi3YAZ98EK97I3If Pjwv dGFibGU+PHRhYmxlIHdpZHRo HPcoPFAeYkYzoIebTP7yJu6t QUFsATGwgEfsvVSaWsOdp0hn YXBz SXwqQV6ccGqkI0RnkHU6ZMOl o5q0Tc95B24fB8UocKJ+PGNv fEB6oBC6dO5rQdVzTrP0GYcp Z249 OfJfgGRlVpiqy1kxb6spnGm8 FjNbVHZiaqDraEpuUVQ8h5Pk Kk94Z40sWYcfGSXgTGAeXHVd IHZh cXmdkd9agM9aQo1+PGNvbCB3 uKH5tI4qJzSmWwZ2ONwgZ271 WvFqsJThWfueY92yD6XipUA+ PHRy Ffr4TCFcyLiyGI0ozZNvGAki Gc0bYQQ5ExOgTyKzRYafM7Ib OLHzpewmauyzeYW3OSUeZRGg aW47 Xz3wlZqyDc3mVCEsIRF4FKVu wSKoS9XpcT7mTtKrBINjREIb R7HsiZOtBKjyX481YWvdBgW3 IHZl xuFqW1IoMBGfmQzuTnL7t2O8 Wy3QkSyaiZHoDY3eTmLhRGa5 U5LeNff9QLYjjZyvJE3xlCEy ZGlu Zb9jiAbavDwaTR5sVGLvfwml c674LcBty0gmWHZotKYdVTai YVX2P94wz9Y8IHViSNIjZJI0 dGV4 oD5mrEqyooyqpHWhdKszgrIp pXcdLRkeUKqbH085OFIymWko QaBQApr6B0OlVnv7ANAyrSkm ZT0n yRAnLDhbRb5qjNavwXkiOP5y VFPaynvhg670AjKzm3zwWBKu eJOrITkwZIH3D42df3M5XPLl MDAw EGB9dBJ6dA5bcYbknfmdiBOb nLdkfyYoiLfnWBlkGQvwB387 OQFdrXmdZp2ZSpg9D0ChPgl0 ZCBz gAkyFW7suBDeWVliMe7wwVbc rHrwPF9wLTQwesgaq831YdQh n6ueAFEpkVZzKNrdXAQ7D07f b3I6 QWCrFPHgPZF2sHC7cV5zmCqh bjogbGVmdDsgdmVydGljYWwt TKfdJ115AHYfoOdjDiQgpWAb Ojwv dGQ+DQ35rl95O8DtFlhcElp4 UHTuFYX4dQQ9dH5hEXQvDFca d3P6lPJ9A1RbfnYhqb4ei8fu YXBz ZTo (more content not included)... Normal [facility] ED Clinical Summaryon 2023 ED Clinical Summary [facility] ? Urgent Care [address] [place] [address] [id number] Clinical Summary PERSON INFORMATION Name: KARUNA DUMONT Age: 42 Years Sex: FEMALE : 1980 MRN: Acct#: Visit Reason: Skin problem; RASH ON ARMS Arrival: 08/23/2023 14:45:23 Discharge: 08/23/2023 15:20:00 LOS: 000 00:35 Check In: 08/23/2023 14:45:23 Checkout: 08/23/2023 15:20:00 Address: [facility] [address] [facility] [address] PCP: Johnathon Winter MD PROVIDER INFORMATION Provider Role Assigned Unassigned Phuong Oseguera COMPUTATIONAL SCIENTIST Nurse 08/23/2023 14:46:59 Yissel Resendez PA-C ED [...] Follow-Up: With: Address: When: Johnathon Winter MD [address] [place] [address] [id number] DIAGNOSIS: 1:Rash and nonspecific skin eruption; 2:Elevated blood pressure reading without diagnosis of hypertension Patient Understands: Comment: Normal [facility] ED Patient Summaryon 024 ED Patient Summary [facility] ? Urgent Care [address] [place] [address] PATIENT DISCHARGE INSTRUCTIONS Patient Information Name: KARUNA DUMONT Age: 42 Years Date of : 1980 Reason For Visit: Skin problem; RASH ON ARMS Arrival Time: 08/23/2023 14:45:23 Primary Care Physician: Johnathon Winter MD Attending Physician: Yissel Resendez PA-C Comment: Patient Education With: Address: When: Johnathon Winter MD [address] [place] [id number] Rash, Adult A rash is a [...] with your condition: Medicine Take or apply rwgf-hyi-owlhfnc and prescription medicines only as told by [...] a bath with: ? Epsom salts. Follow instructor technical training instructions on the packaging. You can get these at your local pharmacy or grocery store. ? Baking soda. Pour a small amount into the bath as told by your health care provider. ? Colloidal oatmeal. Follow instructor technical training instructions on the packaging. You can get this at your local pharmacy or grocery store. ? Try applying baking soda paste to your skin. Stir water into baking soda until it reaches a paste-like consistency. ? Try applying calamine lotion. This is an celq-vez-hguxhxp lotion that helps to relieve itchiness. ? [...] rash from spreading. ? Take or apply fugk-qyo-zqmfaai and prescription medicines only as told by your health care provider. ? Contact a health care provider if you have new or worsening symptoms. ? Keep all follow-up visits as told by yo (more content not included)... [facility] 05-23-2023 L Specimen: [id number] Received: 05/24/23 Status: NATHAN Guzmán Num: [id number] Spec Type: Surgical Subm Dr: Tee Peterson MD Tissues: A BREAST CORE NO CALCS (LT BREAST) Procedures: HE/4, Gross/Micro L4, AE1-AE3/2 Age/ Patient Sex Location Account Attending Physician Karuna Dumont 42/F LABELL [id number] Tee Peterson MD SPEC NUM: [id number] RECD: 05/24/23 STATUS: NATHAN GUZMÁN NUM: [id number] GENEVA: 05/23/23- SUBM DR: Tee Peterson MD ENTERED: 05/24/23-[address] [facility] [address]: Bert,Lab SPEC TYPE: Surgical [...] Time: 0.10 Formalin Fixation Time: 28.50 Specimen: [id number] Received: 05/24/23 Status: NATHAN Sara Num: [id number] Spec Type: Surgical Subm Dr: Tee Peterson MD Tissues: A BREAST CORE NO CALCS (LT BREAST) Procedures: HE/4, Gross/Micro L4, AE1-AE3/2 Patient: Karuna Dumont [id number] (Continued) Specimen: [id number] Received: 05/24/23 (Continued) Signed (signature on file) Tootie Jordan MD 05/31/232105 Specimen: [id number] Received: 05/24/23 Status: NATHAN Guzmán Num: [id number] Spec Type: Surgical Subm Dr: Tee Peterson MD Tissues: A BREAST CORE NO CALCS (LT BREAST) Procedures: MELANIE/Shanique, Cheyanne/Micro L4, AE1-AE3/2 Patient: Karuna Dumont [id number] (Continued) Specimen: [id number] Received: 05/24/23 (Continued) CPT Codes 52214 Specimen: [id number] Received: 05/24/23 Status: NATHAN Guzmán Num: [id number] Spec Type: Surgical Subm Dr: Tee Peterson MD Tissues: A BREAST CORE NO CALCS (LT BREAST) Procedures: MELANIE/Shanique, Gross/Micro L4, AE1-AE3/2 Patient: Karuna Dumont [id number] (Continued) Signed (signature on file) Tootie Jordan MD 05/31/232105 Normal [facility] MR LUMBAR SPINE WO CONTon [...] Yung Perry on 05/23/2023 12:47 PM Normal [facility] Free testosterone measuremen t by LC-MS/MSon 05-10-2023 Testosterone Free [Mass/Vol] 0.6 pg/mL 0.0-4.2 [facility] Comment on above: Performed at: [address] [id number] Director: Theron Roblero PhD, Phone: [phone] at: [address] [id number] Director: Katelynn Macdonald MD, Phone: [phone] No Panel Informationon 05-10 C-Peptide 2.8 ng/mL 1.1-4.4 [facility] Comment on above: C-Peptide reference interval is for fasting patients.Performed at: [facility] [employer] [id number] Director: Theron Roblero PhD, Phone: [phone] Dehydroepiandrosterone Sulfate 194.0 ug/dL 57.3-279.2 [facility] Free Cortisol, Dialysis, LCMS 0.787 ug/dL . [facility] Comment on above: These tests were dev eloped and their performancecharacteristics determined by [facility]. They have not beencleared or approved by the Food and Drug Administration.Reference Range:8 AM 0.10 - 1.204 PM 0.042 - 0.872Performed at: [facility] [address] [place], [place] [id number] Director: Kal Archibald MD, Phone: [phone] Reverse Triiodothyronine (T3) 23.0 ng/dL 9.2-24.1 [facility] Comment on above: This test was develo ped and its performance characteristicsdetermined by [employer]. It has not been cleared orapproved by the Food and Drug Administration.Performed at: [facility] [employer] [id number] Director: Katelynn Macdonald MD, Phone: [phone] Sex Hormone Binding Globulin 49.1 nmol/L 24.6-122.0 [facility] Comment on above: Performed at: [address] [id number] Director: Theron Roblero PhD, Phone: [phone] Testosterone Level 22 ng/dL 8-60 [facility] Plasma serotonin measurement (mass/volume)on 05-10-2023 Serotonin (P) [Mass/Vol] 105 ng/mL [facility] Comment on above: This test was develo ped and its performance characteristicsdetermined by [employer]. It has not been cleared orapproved by the Food and Drug Administration.Performed at: [facility] [employer] [id number] Director: Katelynn Macdonald MD, Phone: [phone] Serum estrone measurementon 05-10-2023 E1 [Mass/Vol] 65 pg/mL 27-231 [facility] Comment on above: Range Adult (Premeno pausal) 27 - 231 Menstrual Cycle (1-10 days) 19 - 149 Menstrual Cycle (11-20 days) 32 - 176 Menstrual Cycle (21-30 days) 37 - 200Performed at: [facility] [employer] [id number] Director: Katelynn Macdonald MD, Phone: [phone] Serum or plasma estradiol (E 2) measurement (mass/volume)on 05-10-2023 E2 [Mass/Vol] 98.9 pg/mL . [facility] Comment on above: Adult Female Range F ollicular phase 12.5 - 166.0 Ovulation phase 85.8 - 498.0 Luteal phase 43.8 - 211.0 Postmenopausal <6.0 - 54.7 1st trimester 215.0 - >4300.0Roche ECLIA methodology Serum or plasma insulin mariam urement (units/volume)on 05-10-2023 Insulin Qn 7.0 u[iU]/mL 2.6-24.9 [facility] Comment on above: Performed at: [facility] [employer] [address] [id number] Director: Theron Roblero PhD, Phone: [phone] Serum or plasma progesterone measurement (mass/volume)on 05-10-2023 Progesterone [Mass/Vol] 0.1 ng/mL . [facility] Comment on above: Follicular phase 0.1 - 0.9 Luteal phase 1.8 - 23.9 Ovulation phase 0.1 - 12.0 First trimester 11.0 - 44.3 Second trimester 25.4 - 83.3 Third trimester 58.7 - 214.0 Postmenopausal 0.0 - 0.1Performed at: [facility] [address] [place], [place] [id number] Director: Theron Roblero PhD, Phone: [phone] Serum or plasma thyroperoxid ase antibody assay (units/volume)on 05-10-2023 TPO Ab Qn 11 [IU]/mL 0-34 [facility] Thyroglobulin [Mass/volume] in Serum or Plasmaon 05-10-2023 Thyroglobulin [Mass/Vol] <1.0 [IU]/mL 0.0-0.9 [facility] Comment on above: Thyroglobulin Antibo dy measured by [facility]MethodologyPerformed at: [facility] [address] [place], [place] [id number] Director: Theron Roblero PhD, Phone: [phone] XR LUMBAR SPINE AP, LATERAL, FLEXION AND [...] Yung Perry on 05/05/2023 1:28 PM Normal [facility]oding Summaryon 03-20-2023 Coding Summary HTMLBase 64 UnfcvgtpBUg6qCj+PGhlYWQ+ ZI6GEAIgI07ddLUpwT7pX1OZ TElOSywgQVBQTElOSyIgbmFt IF7xsTBuMGEv IC8+QO8jSJTyKqwzcMBys5C4 uRD7J91jwh0yZVwgfHI9AJTo TdBmzisul6dusOr1DVkxMcih OyBt JXKeeE55YOR5iI03Ub61mNEy lCInr7mzgEu0JyIeHZZqCFD3 uGqoLWnri3LuNCIjU83odIGd c2U6 IXKtfLbjgLFnFsKtkYZ6iB7w YDxesrrlj4sskrllVyr1kg53 aBCju8R8sNM3O3HrgtC1PJQq bGQg YivmeCWXtX5chloca4oapzgv RgYvWKBhLSo6MWq6GTAyfPmj FcQaSI30JCI4TMWsivFdZ3Ra LWFs qPzzYxF4g5Y2Ux3PF0IZEtiu O4LRZTCDIAhelGQ+NN17fn62 B8IpLwkiPdk1HZNfKTY7uIL1 aD0n TPWxTEuwt5P1vXK8E9MybzMe zq0wx5boKMVcYDcsI51fbLZc o3L1ITWpuSW3IZOqlWleKfNv aG93 Oyc+JCIryKmyt1KiLzntq0uk v2sftGt7UicbNQGbqvDowZmf JKO6y0NdOk2pWBQnkIH8uQT1 aD0i NiEhGlD2EGooG990QyHybNVe MsvrL15bH7VicHB+PHRyPjx0 TVOdkIqzXP9xX0SfQTYqkfdw bGVm vEeyRQ6uEKHbixkfGFJntZ0y EPHaW2q9ClSvDfG5XWttU6Vj NNQbgfqaWn21oS6lRgLnQvV8 MGlu K2GsfeX1RAUtoUEwRFziXRH8 H41gx4G8BUSvECWqIUL7uTW3 vF3waMlwodwxrBHcxHuegeGn dGlj ZQqsRBcwB689ZJLgaAfxLzXd ZGluZyBEYXRlOiAgMTIvMTgv MjAyMzwvdGQ+JSNlDLD5dCkp PSAn yHPaAPccHe7fuOesdMnpHY5b FOBretchVWDwcU3wHAVhxNUq hXdlIN3sVWZtpyrgb227UgLk MHB0 VRHbkRUqD6FjcR9dCiKyNHDf ZROwC9NaiCLoGLxxL824SYzv WlU8HOFecoBoG2XzTWQtpSyo OiB0 d0X6Yn8Hz0TjvkrbF1ForDLj KwSrNtlkMHp7H3UcMvqdkTZ+ UE47BEOtGZ44FKk6YQL1hCkr PSdi QAIbN3EtqP2yWhSpUYHuFJLj Oyc+PHRhYmxlIHdpZHRoPScx ZDIrPwUtyRhbTT8lPe1yGUNf LWNv dAzobSWfYlWup0dyMYHhNLho GQ2zlRbfI4IpeKJ2XBRoh1g1 Bx01B35xO0PsbAN+PGNvbCB3 aWR0 eB1gNrAnSzQ0VLcaF803PjEm aMSpTtwnd2mxk9kjdKd9GvV9 LLDqrsCukJqdOXY7k6JpTd42 Y29s IHdpZHRoPSIxNSUiIHZhbGln mm1jpK5yGq0+KFWyxVO0bLU3 wL7iLgWrThL8ITnoM436MwHa cCIv Elsdc4piu6lrmYf6UjScBKZs mnNcjKycCKY0h0UyXk99H0Ru aPzqc3LkAfp8sp62fVOao3Q9 bGU9 I7VbIIIdszggxSVblQzePP2g JZAejiatFVOwdD7gRCNkU0y2 CtHwEcP0HOdjO8RcifV6EOSi bGQg LDRdhNYJqB8xgahwp5uhubhy FsMvHUScSSo3NRb4ITSvxNce HdHuEJY9VaA0GPC4eVEwwF4c bGln ribocJ8eIls+OIC0tJKqgEXT IG9cDklaeDB+TOPrZIX3cMhc DSkqWLBscX5cLBVfT1n0VpWa LjA1 FZchC2KepgK8DKEhnONmIMMt xDJIzI0xuiawg2zkuptiVqYx TMVgVCx2KGy6OFJgvAohAaTx ZWZ0 VvY2EKN7kQWqnP8veRjtjotw fT4fTwc+WmbtnXlzKNG8QKv9 B4XuNua4QYEegUvzND0yhBGv ZGlu Rk7ncSelbWouPS9qKIFeopev s065TaMnb9thMKHzzPMqLSmx HTB8H59pi0L3WDRpRZZpSTI4 dGV4 sW8sgRapyxhhrSNamFbdaxLf oHgqWYsqUOfbD776ZUXenIko QfIyHBc4G5GbUlr4EGHjzBod ZT0n oMRoPAgsTw3xxNocbOzuLC7w IQCxfgmrh795FeFyq1woCCNu hHStZWqbXHM2Q78vs5E8PMTc MDAw RSW2hXG5rF4yxRxiookjvDDt iGxuqnRdfIjjPDdrNBxhI773 YQDucUqcNzHivUq9E4ReMfs1 ZCBz cHszVJ4fgEArZLhyAk0zfLmw zTujAG8iRGKaysqdr239PxMt o3sjVMPhvBOiFFwaRIQ3Q43r b3I6 YOUwVWXhIIJ9dNN7uJ5ffLqe bjogbGVmdDsgdmVydGljYWwt CAshL204ZOHljGhyJyUyaTer bnQg EBwbMQg5G9QxUdppsFR+PC90 FGSsLA07cXHqiIDme0vjuVl3 IlNqYPRaTUU2pBjzTGycs6Gv ZXIt X70sqVGlw6S2RGNzvDfumYMp DoVnaEJ7eC8oZBmwkudpr4os dhwcLptmy8tqda28dO04U59j IHdp DYKlDYTiSPJqNRAzgFsnue0n zD6nJs6+BKIirNY8zDE0hZ6j MQUwYoS3TBjuX803GrKmdIZp Pjxj c7zly9veqQb2DiR4YXYdsrWo rPudBCO3m9HsYy65H14gMUqq YLIzIGCyPPKuQXQvhRlknn2e dG9w Ii8+NONamCQ4eWZ9iV8vAqBz ZdU6NLhvD150HpNnhETaYcoa X86sP1PvmRC+NWAeUvn0YWTl dHls RN5htOTiIWesZf2jSFD0BhGr AfSgGEtaB4EiGSCnwclfctta zOZ5FUGwCNOldD53Wf9rsUhi MTBw nCTEoZ7azpxha5sxsfmyWdTu YQYtCHf8ZGe9WSJrlIcqGqBp FDX4DwI8ABU5cYHcfY8moUjy bjog zI9iY1TlIKIdmpjcYe23nX5v OoNnZgO7DCssRyc+F82OE6vU LCBBTUFOREEgREFXTjwvdGQ+ PHRk BOP1vXtbTRhdTDWouT4qKZVo A0k7GvBfKpB9ELroL1LmCUHs pshpGz83cH1uKvVlPyN8CGnr O2Zv xfQ0XYSilVCqFMziRIL0L97w m2U7NJYbKYIhIYE9iRA8oO8s bGlnbjogbGVmdDsgdmVydGlj YWwt KVjfV668VUTpfCkbBkA8DgAs WwL1ICK1A0MyTsq0TYHkfJzl GE4pgAJeJTycCv4zjBaqdOti MC4w TILokirtFKWczY7eXSArrNBy hIvjIZ7gPCHxubzvm250HwPw JMF6HMUopJIuU6IwbG3lLsEs MDAw GATpJ8YmwLLdBHeaB233NTsa RgO0OFYhtxBxY2YqFRNfjEfy PdS7b8P2Yd46JWXKNZFzomhm dGQ+ QNRcQJC0zMreZLadFLOuzL4b DMPiW9g4XcObUtP4EWudA9Bk KPXngovpKa74uU8nMnPdYcF0 MGlu G0WaeeH8MEUbrPLjFFbjMZH7 X39sf3M6DNQrBVFhMLB6lAL7 qQ6utFtbrjagwSYupOvegqYq dGlj GKynGOlaQ054RUHkdEfsWeSP TUFMRTwvdGQ+ZTLzTKV3vBfz ZFyzAWLyiE8sFEPxR1x6VaUy LjA1 WVzxV5QfTUPhwbrgLl52wY8z ArXwYiP2MKywX1TjltP2IWEm wAUwOHnvWGN4K83xd9H4XSUn MDAw GFJ3sDG9hR2qfLtrgkeyxVBc aUhtvoWomHlrUSgbHTmyQ516 VEUfqAsnCe7ACS90LE31A7Ri Pjwv dGFibGU+PHRhYmxlIHdpZHRo LMgxTDVgVuNzhGozMY1eXa9v QJYlBMCilPjraYXlLsRcd3iz YXBz VKccXC2mgNsdO6YfaIT2NVSf d8m1Pt58W35cH8DzpFQ+PGNv pOX5vWU8nX6fAmAaXsV6EUrd Z249 CiVajXTkQdyql8cav6vxjAp0 JtGuBFDnqhSwmKhiUIY6a2Qq Nv01Y60mLZjcFIHjKJHfTJWq IHZh oNhbpo6vxT1vQz7+PGNvbCB3 cOZ9yT4lTeEfBxZ6LIojG536 XhCkeWVnWoyaI85bJ1VohHP+ PHRy Tqi5BPXxyEhaHI8xqNLdECuz Gi9dWVI9NhYaPaGiYXsiY6Ws ESQaqosjocuphLN3YLXvRCXq aW47 Ej1cdCidCy0cWBYmBWT0DFGn vPFtQ4LgiS7fUnTbWOJuLECp Q9RndIGlCKraE303QYjmQxA8 IHZl zlHvP3RrBLNfcCunMhO4s2C1 Dp4RgXpdpKNrPK5nNnKiKFe7 S4IiSiq2CSYwnKisRW1vvZUz ZGlu Vr2niLrmrLvyZJ5xCUXmpcuo q489TvOrr1mwZSTlpUQnFEnq RJY7P55jf7R1CCWpMQTfGDW0 dGV4 sD3nxJjxffqfoIVayQsdsyFr zNymVOoeXOyfU742UQJyeNfv PfHKLjq3E5NwTzk7UBWpzBou ZT0n yWQuWHzaRb8pxKbrvZrwGT6d SVQbheevz665LoWwx8uuGAOf oNOmTZpoSES5K57rg3O1EWEt MDAw IYL1jRN6kT9hgDhalxbibRVq nPrihmVnbJmeHJgfNUvgI302 WBEicJdoUi7LJws7S5CtWws0 ZCBz ySupTX0mhSLqWLquCf5xoXcr wQqrKY2wLLKhaxnnm407PyQb j9nqVGSujMZpNBweBZN1G80p b3I6 ZTDfFZNoUET7wMU4eH4nbOfu bjogbGVmdDsgdmVydGljYWwt ZEctD788CLIuzPwaOeJhdZEk Ojwv dGQ+CO80ku42S9YmQhrxUmq0 ZHLsOKK6sUY0jI0pIWYtJMew w3M0zTY2Y4KngyFfml2ym4jj YXBz ZTo (more content not included)... Normal [facility] ED Clinical Summaryon 2022 ED Clinical Summary [facility] ? Urgent Care [address] [place], [place] [id number] Clinical Summary PERSON INFORMATION Name: KARUNA DUMONT Age: 42 Years Sex: FEMALE : 1980 MRN: Acct#: Visit Reason: UC - Finger/Thumb Injury; RT RING FINGER INJURY Arrival: 03/09/2023 10:15:32 Discharge: 03/09/2023 12:03:00 LOS: 000 01:48 Check In: 03/09/2023 10:15:32 Checkout: 03/09/2023 12:03:00 Address: [facility] [address] PCP: Johnathon Winter MD PROVIDER INFORMATION Provider [...] Follow-Up: With: Address: When: YUNG LAWS DO [address] [place] [id number] Within 3 to 5 days Comments: [...] understanding of instructions given Comment: Normal [facility] ED Patient Summaryon 023 ED Patient Summary [facility] ? Urgent Care [address] [place] [id number] PATIENT DISCHARGE INSTRUCTIONS Patient Information Name: KARUNA DUMONT Age: 42 Years Date of : 1980 Reason For Visit: UC - Finger/Thumb Injury; RT RING FINGER INJURY Arrival Time: 03/09/2023 10:15:32 Primary Care Physician: Laura SÁNCHEZ, Johnathon Thompson Attending Physician: Sanchez John Comment: Patient Education With: Address: When: VETO YUNG Kiet DO [address] [address] Within 3 to 5 days [...] cold (more content not included)... Normal [facility]gent Care [place] 023 Urgent Care Record [facility] ? 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 It is important for you to follow up with a doctor, nurse practitioner, or physician?s shipping and receiving assistant for ongoing care. If your symptoms [...] we can reach you if necessary. [facility] has provided you with a complete list of medications post discharge. Please inform your meter tester primary/provider of your visit and for further instruction [...] of your st (more content not included)... [facility] XR Finger Righton 03-09-2023 XR [...] MD 03/09/23 11:56 a Technologist: Vannesa DANGELO [facility] No Panel Informationon 10-11 No acute bony abnormalities are noted [facility] EXAMINATION: THREE XRAY VIEWS [...] well maintained. Soft tissue swelling. Calcaneal spurs [facility] Miller Romo MD - [...] IMPRESSION: No acute bony abnormalities are noted [facility] Radiology Study observation (narrative) GIANA SAVAGE [facility] No Panel InformationOrdered By: Miller Romo on 10-11-2022 [facility] Work Phone: XR ANKLE RIGHT [...] Miller Romo MD 10/11/22 Final result Normal [facility] XR FOOT RIGHT (MIN 3 VIEWS)o [...] Miller Romo MD 10/11/22 Final result Normal [facility] PAP ACOG PANEL 2: 30 to 65on 07-16-2022 . . Normal [facility] Comment on above: Result Comment: Perf ormed at: WB Performed By: #### [id number] #### [facility] [address] [address] [address] Dang Kirby Age Gdln ACOG Testing 30-65 Normal [facility] Comment on above: Performed By: #### [id number] #### [facility] [address] [address] [address] Dang Kirby DIAGNOSIS: Comment Normal [facility] Comment on above: Result Comment: NEGA TIVE FOR INTRAEPITHELIAL LESION OR MALIGNANCY. THIS SPECIMEN WAS RESCREENED PART OF OUR ABSTRACT SEARCHER PROGRAM. Performed at: WB Performed By: #### [id number] #### [facility] [address] [address] [address] Dang Kirby HPV Aptima Negative Normal Negative [facility] Comment on above: Result Comment: This nucleic acid amplification test detects fourteen high-risk HPV types (16,18,31,33,35,39,45,51,52,56,58,59,66,68) without differentiation. Performed at: =G Performed By: #### [id number] #### [facility] [address] [place] [address] Dr. Dang Kirby HPV Genotype Reflex Comment Normal [facility] Comment on above: Result Comment: Crit eria not met, HPV Genotype not performed. Performed at: WB Performed By: #### [id number] #### [facility] 09 [place] [address] Dr. Dang Kirby Methodology: Comment Normal [facility] Comment on above: Result Comment: This liquid based ThinPrep(R) pap test was screened with the use of an image guided system. Performed at: WB Performed By: #### [id number] #### [facility] [address] [place] [address] Dr. Dang Kirby Note: Comment Normal [facility] Comment on above: Result Comment: The Pap smear is a screening test designed to aid in the detection of premalignant and malignant conditions of the uterine cervix. It is not a diagnostic procedure and should not be used as the sole means of detecting cervical cancer. Both false-positive and false-negative reports do occur. . Performed at: WB Performed By: #### [id number] #### [facility] [address] [address] [address] Dang Kirby Performed by: Comment Normal [facility] Comment on above: Result Comment: Flavia Stanford, Transport Operations Inspector (ASCP) Performed at: WB Performed By: #### [id number] #### [facility] [address] [place], [place] [address] Dr. Dang Kirby QC reviewed by: Comment Normal [facility] Comment on above: Result Comment: Valentino Victor, Transport Operations Inspector Performed at: WB Performed By: #### [id number] #### [facility] [address] [place], [place] [address] Dr. Dang Kirby Specimen adequacy: Comment Normal [facility] Comment on above: Result Comment: Sati sfactory for evaluation. No endocervical component is identified. Performed at: WB Performed By: #### [id number] #### [facility] [address] [address] [address] Dang Kirby MG MAMM DIAGNOSTIC 3D RAMA CA Don 04-29-2022 MG MAMM DIAGNOSTIC 3D RAMA CAD Patient: KARUNA DUMONT Exam Date: 04/29/2022 : 1980 Gender:F Ordering : DR SANJEEV LOPEZ . Admission #: [id number] Family : Order #: [id number] CLICK HERE TO VIEW EXAM RADIOLOGY REPORT [...] None Family Cancers None LOCATION: [facility] BREAST COMPOSITION: Scattered areas fibroglandular density. [...] 14:55 Normal [facility] US BREAST RIGHT LIMITEDon US BREAST RIGHT LIMITED Patient: KARUNA DUMONT Exam Date: 04/29/2022 : 1980 Gender:F Ordering : DR SANJEEV LOPEZ . Admission #: [id number] Family : Order #: [id number] CLICK HERE TO VIEW EXAM RADIOLOGY REPORT [...] None Family Cancers None LOCATION: [facility] BREAST COMPOSITION: Scattered areas fibroglandular density. [...] 14:55 Normal [facility] CT CERVICAL SPINE WO CONTRAS Ton 02-16-2022 [...] Oziel Fox MD 02/16/22 Final result Normal [facility] XR CLAVICLE LEFTon XR CLAVICLE LEFT [...] Miller Romo MD 02/16/22 Final result Normal [facility] XR SHOULDER LEFT (MIN 2 VIEW [...] Emil Flores MD 02/16/22 Final result Normal [facility] CBC with Auto Differentialon 01-03-2022 Absolute Eos # 0.10 [facility] Absolute Lymph # 1.60 [facility] Absolute Drew # 0.40 [facility] Basophils (Bld) [#/Vol] 0.00 10*3/uL [facility] Basophils/100 WBC (Bld) 1 % 0 - 2 % [facility] Eosinophils/100 WBC (Bld) 2 % 1 - 4 % [facility] Hematocrit (Bld) [Volume fraction] 46.0 % 36 - 46 % [facility] Hemoglobin (Bld) [Mass/Vol] 15.4 g/dL 12 - 16 g/dL [facility] Interpretation and review of laboratory results Abnormal [facility] Lymphocytes/100 WBC (Bld) 29 % 24 - 44 % [facility] MCH (RBC) [Entitic mass] 28.6 pg 26 - 34 pg [facility] MCHC (RBC) [Mass/Vol] 33.4 g/dL 31 - 3 7 g/dL [facility] MCV (RBC) [Entitic vol] 85.9 fL 80 - 100 fL [facility] Monocytes/100 WBC (Bld) 8 % 2 - 11 % B ON [facility] Platelet distribution width (Bld) [Ratio] 14.1 % 12.5 - 15.4 % [facility] Platelet mean volume (Bld) [Entitic vol] 7.6 fL 6 - 12 fL [facility] Platelets (Bld) [#/Vol] 277 10*3/uL [facility] RBC (Bld) [#/Vol] 5.36 10*6/uL High 4 - 5.2 m/uL [facility] Segmented neutrophils/100 WBC (Bld) 60 % 36 - 66 % [facility] Segs Absolute 3.40 [facility] WBC (Bld) [#/Vol] 5.6 10*3/uL [facility] CBC with Diffon 01-03-2022 Abs. Basophil 0.00 k/uL Normal 0.0-0.2 [facility] Comment on above: Performed By: #### H CG, LIP, MG, CDP, CMPX #### [facility] [address] [place] [address] Lead Miner: Estevan Corcoran MD Abs.Neutrophil (Seg) 3.40 k/uL Normal 1.8-7.7 [facility] Comment on above: Performed By: #### H CG, LIP, MG, CDP, CMPX #### [place] [address] Lead Miner: Estevan Corcoran MD Basophils/100 WBC (Bld) 1 % Normal 0-2 M [facility] Comment on above: Performed By: #### H CG, LIP, MG, CDP, CMPX #### [place] [address] Lead Miner: Estevan Corcoran MD Eosinophils (Bld) [#/Vol] 0.10 10*3/uL Normal 0.0-0.4 [facility] Comment on above: Performed By: #### H CG, LIP, MG, CDP, CMPX #### [place] [address] Lead Miner: Estevan Corcoran MD Eosinophils/100 WBC (Bld) 2 % Normal 1-4 [facility] Comment on above: Performed By: #### H CG, LIP, MG, CDP, CMPX #### [place] [address] Lead Miner: Estevan Corcoran MD Erythrocyte distribution width (RBC) [Ratio] 14.1 % Normal 12.5-15.4 [facility] Comment on above: Performed By: #### H CG, LIP, MG, CDP, CMPX #### [place] [address] Lead Miner: Estevan Corcoran MD Hematocrit (Bld) [Volume fraction] 46.0 % Normal 36-46 [facility] Comment on above: Performed By: #### H CG, LIP, MG, CDP, CMPX #### [place] [address] Lead Miner: Estevan Corcoran MD Hemoglobin (Bld) [Mass/Vol] 15.4 g/dL Normal 12.0-16.0 [facility] Comment on above: Performed By: #### H CG, LIP, MG, CDP, CMPX #### [place] [address] Lead Miner: Estevan Corcoran MD Lymphocytes (Bld) [#/Vol] 1.60 10*3/uL Normal 1.0-4.8 [facility] Comment on above: Performed By: #### H CG, LIP, MG, CDP, CMPX #### [place] [address] Lead Miner: Estevan Corcoran MD Lymphocytes/100 WBC (Bld) 29 % Normal 24-44 [facility] Comment on above: Performed By: #### H CG, LIP, MG, CDP, CMPX #### [place] [address] Lead Miner: Estevan Corcoran MD MCH (RBC) [Entitic mass] 28.6 pg Normal 26-34 [facility] Comment on above: Performed By: #### H CG, LIP, MG, CDP, CMPX #### [place] [address] Lead Miner: Estevan Corcoran MD MCHC (RBC) [Mass/Vol] 33.4 g/dL Normal 31-37 [facility] Comment on above: Performed By: #### H CG, LIP, MG, CDP, CMPX #### [place] [address] Lead Miner: Estevan Corcoran MD MCV (RBC) [Entitic vol] 85.9 fL Normal 80-100 M [facility] Comment on above: Performed By: #### H CG, LIP, MG, CDP, CMPX #### [place] [id number] Lead Miner: Estevan Corcoran MD Monocytes (Bld) [#/Vol] 0.40 10*3/uL Normal 0.1-1.2 [facility] Comment on above: Performed By: #### H CG, LIP, MG, CDP, CMPX #### [place] [address] Lead Miner: Estevan Corcoran MD Monocytes/100 WBC (Bld) 8 % Normal 2-11 M [facility] Comment on above: Performed By: #### H CG, LIP, MG, CDP, CMPX #### [place] [address] Lead Miner: Estevan Corcoran MD Neutrophil (Seg) 60 % Normal 36-66 [facility] Comment on above: Performed By: #### H CG, LIP, MG, CDP, CMPX #### [place] [address] Lead Miner: Estevan Corcoran MD Platelet mean volume (Bld) [Entitic vol] 7.6 fL Normal 6.0-12.0 [facility] Comment on above: Performed By: #### H CG, LIP, MG, CDP, CMPX #### [place] [address] Lead Miner: Estevan Corcoran MD Platelets (Bld) [#/Vol] 277 10*3/uL Normal 140-450 [facility] Comment on above: Performed By: #### H CG, LIP, MG, CDP, CMPX #### [facility] [address] [place], [place] [phone] Lead Miner: Estevan Corcoran MD RBC (Bld) [#/Vol] 5.36 10*6/uL High 4.0-5.2 [facility] Comment on above: Performed By: #### H CG, LIP, MG, CDP, CMPX #### [facility] [address] [phone] Lead Miner: Estevan Corcoran MD WBC (Bld) [#/Vol] 5.6 10*3/uL Normal 3.5-11.0 [facility] Comment on above: Performed By: #### H CG, LIP, MG, CDP, CMPX #### [place] [address] Lead Miner: Estevan Corcoran MD CT ABDOMEN PELVIS W [...] Papito Mishra MD 01/03/22 Final result Normal [facility] CT ABDOMEN PELVIS W IV CONTR AST Additional Contrast? Noneon 01-03-2022 1. Fluid within smal l bowel loops and ascending colon which can be seen as sequela of a gastroenteritis. 2. Prior appendectomy. Prior cholecystectomy. 3. Fatty liver. 4. Mild colonic diverticulosis. 5. Small midline fat containing periumbilical hernia. 6. No clear evidence for small bowel obstruction. [facility] RIS CONSOLIDATED EXAMINATION: CT OF THE [...] No clear evidence for small bowel obstruction. [employer] Phone: Radiology Study observation (narrative) [employer] Phone: CT ABDOMEN PELVIS W IV CONTR AST Additional Contrast? NoneOrdered By: Papito Mishra on 01-03-2022 [employer] Phone: Comp Metabolic Pr/rfx MGon 1 ALT [Catalytic activity/Vol] 28 U/L Normal - [facility] Comment on above: Performed By: #### H CG, LIP, MG, CDP, CMPX #### [id number] [place] [address] Lead Miner: Estevan Corcoran MD (cont.) [facility] Comment on above: Result Comment: Aver age GFR for 30-39 years old: 107 mL/min/1.73sq m Chronic Kidney Disease: <60 mL/min/1.73sq m Kidney failure: <15 mL/min/1.73sq m eGFR calculated using average adult body mass. Additional eGFR calculator available at: http://www.Sprout.TicketBox/multiple_crcl_2012.htm Performed By: #### H CG, LIP, MG, CDP, CMPX #### [place] [address] Lead Miner: Estevan Corcoran MD Albumin [Mass/Vol] 4.3 g/dL Normal 3.5-5.2 [facility] Comment on above: Performed By: #### H CG, LIP, MG, CDP, CMPX #### [place] [address] Lead Miner: Estevan Corcoran MD Albumin/Glob Ratio 1.4 Normal 1.0-2.5 [facility] Comment on above: Performed By: #### H CG, LIP, MG, CDP, CMPX #### [place] [address] Lead Miner: Estevan Corcoran MD Alkaline Phos 105 U/L High 35-104 [facility] Comment on above: Performed By: #### H CG, LIP, MG, CDP, CMPX #### [place] [address] Lead Miner: Estevan Corcoran MD Anion gap [Moles/Vol] 13 mmol/L Normal 9-17 [facility] Comment on above: Performed By: #### H CG, LIP, MG, CDP, CMPX #### [place] [address] Lead Miner: Estevan Corcoran MD AST [Catalytic activity/Vol] 26 U/L Normal <32 [facility] Comment on above: Performed By: #### H CG, LIP, MG, CDP, CMPX #### [place] [address] Lead Miner: Estevan Corcoran MD Bilirubin [Mass/Vol] 0.3 mg/dL Normal 0.3-1.2 [facility] Comment on above: Performed By: #### H CG, LIP, MG, CDP, CMPX #### [place] [address] Lead Miner: Estevan Corcoran MD Calcium [Mass/Vol] 8.7 mg/dL Normal 8.6-10.4 [facility] Comment on above: Performed By: #### H CG, LIP, MG, CDP, CMPX #### [place] [address] Lead Miner: Estevan Corcoran MD Chloride [Moles/Vol] 104 mmol/L Normal 98-107 [facility] Comment on above: Performed By: #### H CG, LIP, MG, CDP, CMPX #### [place] [address] Lead Miner: Estevan Corcoran MD CO2 [Moles/Vol] 21 mmol/L Normal 20-31 [facility] Comment on above: Performed By: #### H CG, LIP, MG, CDP, CMPX #### [place] [address] Lead Miner: Estevan Corcoran MD Creatinine [Mass/Vol] 0.60 mg/dL Normal 0.50-0.90 [facility] Comment on above: Performed By: #### H CG, LIP, MG, CDP, CMPX #### [place] [address] Lead Miner: Estevan Corcoran MD GFR, Amer >60 Normal >60 [facility] Comment on above: Performed By: #### H CG, LIP, MG, CDP, CMPX #### [address] [id number] Lead Miner: Estevan Corcoran MD GFR,non Amer >60 Normal >60 [facility] Comment on above: Performed By: #### H CG, LIP, MG, CDP, CMPX #### [place] [address] Lead Miner: Estevan Corcoran MD Glucose [Mass/Vol] 105 mg/dL High 70-99 [facility] Comment on above: Performed By: #### H CG, LIP, MG, CDP, CMPX #### [place] [address] Lead Miner: Estevan Corcoran MD Potassium [Moles/Vol] 3.5 mmol/L Low 3.7-5.3 [facility] Comment on above: Performed By: #### H CG, LIP, MG, CDP, CMPX #### [place] [address] Lead Miner: Estevan Corcoran MD Protein [Mass/Vol] 7.4 g/dL Normal 6.4-8.3 [facility] Comment on above: Performed By: #### H CG, LIP, MG, CDP, CMPX #### [place] [phone] Lead Miner: Estevan Corcoran MD Sodium [Moles/Vol] 138 mmol/L Normal 135-144 [facility] Comment on above: Performed By: #### H CG, LIP, MG, CDP, CMPX #### [facility] [address] [place] [address] Lead Miner: Estevan Corcoran MD Urea nitrogen [Mass/Vol] 12 mg/dL Normal 6-20 [facility] Comment on above: Performed By: #### H CG, LIP, MG, CDP, CMPX #### [facility] [address] [place] [address] Lead Miner: Estevan Corcoran MD Comprehensive Metabolic Pane l w/ Reflex to MGon 01-03-2022 Albumin [Mass/Vol] 4.3 g/dL 3.5 - 5.2 g/dL [facility] Albumin/Globulin [Mass ratio] 1.4 {ratio} 1 - 2.5 [facility] ALP (Bld) [Catalytic activity/Vol] 105 U/L High 35 - 104 U/L [facility] ALT [Catalytic activity/Vol] 28 U/L 5 - 33 U/L [facility] Anion gap [Moles/Vol] 13 mmol/L 9 - 17 mmol/L [facility] AST [Catalytic activity/Vol] 26 U/L NINF - 32 U/L [facility] Bilirubin [Mass/Vol] 0.3 mg/dL 0.3 - 1 .2 mg/dL [facility] Calcium [Mass/Vol] 8.7 mg/dL 8.6 - 10. 4 mg/dL [facility] Chloride [Moles/Vol] 104 mmol/L 98 - 10 7 mmol/L [facility] CO2 [Moles/Vol] 21 mmol/L 20 - 31 mmol/L [facility] Creatinine [Mass/Vol] 0.6 mg/dL 0.5 - 0.9 mg/dL [facility] GFR >60 60 - PI NF mL/min [facility] GFR Non- >60 60 - PINF mL/min [facility] GFR/1.73 sq M.predicted MDRD (S/P/Bld) [Vol rate/Area] [facility] Comment on above: Average GFR for 30-3 9 years old: 107 mL/min/1.73sq m Chronic Kidney Disease: <60 mL/min/1.73sq m Kidney failure: <15 mL/min/1.73sq m eGFR calculated using average adult body mass. Additional eGFR calculator available at: http://www.HeyBubble/multiple_crcl_2012.htm Glucose [Mass/Vol] 105 mg/dL High 70 - 99 mg/dL [facility] Interpretation and review of laboratory results Abnormal [facility] Potassium [Moles/Vol] 3.5 mmol/L Low 3.7 - 5.3 mmol/L [facility] Protein [Mass/Vol] 7.4 g/dL 6.4 - 8.3 g/dL [facility] Sodium [Moles/Vol] 138 mmol/L 135 - 144 mmol/L [facility] Urea nitrogen (BldV) [Mass/Vol] 12 mg/dL 6 - 20 mg/dL [facility] HCG Qualitative, Serumon hCG Qual Negative NEGATIVE [facility] Comment on above: Specimens with hCG l evels near the threshold of the test (25 mIU/mL) may give a negative or indeterminate result. In such cases, another test should be performed with a new specimen in 48-72 hours. If early is suspected clinically in this setting, correlation with quantitative serum b-hCG level is suggested. [employer] has confirmed the use of plasma for this test. This has not been cleared or approved by the U.S. Food and Drug Administration. The FDA has determined that such clearance is not necessary. [facility] HCG Screen, Bloodon 01-04-20 HCG Screen, Blood Negative Normal NEG [facility] Comment on above: Result Comment: Spec imens with hCG levels near the threshold of the test (25 mIU/mL) may give a negative or indeterminate result. In such cases, another test should be performed with a new specimen in 48-72 hours. If early is suspected clinically in this setting, correlation with quantitative serum b-hCG level is suggested. [employer] has confirmed the use of plasma for this test. This has not been cleared or approved by the U.S. Food and Drug Administration. The FDA has determined that such clearance is not necessary. Performed By: #### H CG, LIP, MG, CDP, CMPX #### [facility] [address] [place] [address] Lead Miner: Estevan Corcoran MD Lipaseon 01-03-2022 Lipase [Catalytic activity/Vol] 20 U/L Normal 13-60 [facility] Comment on above: Performed By: #### H CG, LIP, MG, CDP, CMPX #### [address] [address] Lead Miner: Estevan Corcoran MD Lipase [Catalytic activity/Vol] 20 U/L 13 - 60 U/L [facility] Magnesiumon 01-03-2022 Magnesium [Mass/Vol] 2.1 mg/dL Normal 1.6-2.6 [facility] Comment on above: Performed By: #### H CG, LIP, MG, CDP, CMPX #### [id number] [place] [address] Lead Miner: Estevan Corcoran MD Magnesium [Mass/Vol] 2.1 mg/dL 1.6 - 2 .6 mg/dL [facility] Microscopic Urinalysison Bacteria, UA MANY Abnormal None [facility] Epithelial Cells UA TOO NUMEROUS TO COUNT [facility] Interpretation and review of laboratory results Abnormal [facility] Other Observations UA Utilizing a urinal ysis as the only screening method to exclude a potential uropathogen can be unreliable in many patient populations. Rapid screening tests are less sensitive than culture and if UTI is a clinical possibility, culture should be considered despite a negative urinalysis. Abnormal NOT REQ. [facility] RBC, UA 2 TO 5 [facility] WBC, UA 2 TO 5 [facility] UA w/Reflex Cultureon 2021 Bilirubin, SemiQt,Ur Negative Normal NEG [facility] Comment on above: Performed By: #### U AX, UMICAO ####[address] [phone] Director: Estevan Corcoran MD Blood, Urine LARGE Abnormal NEG [facility] Comment on above: Performed By: #### U AX, UMICAO ####[address] [address] Lab Director: Estevan Corcoran MD Clarity (U) Cloudy Abnormal CLEAR [facility] Comment on above: Result Comment: FOUL ODOR Performed By: #### U AX, UMICAO ####[address] [address] Lab Director: Estevan Corcoran MD Color (U) Yellow Normal YEL [facility] Comment on above: Performed By: #### U AX, UMICAO ####[address] [address] Lab Director: Estevan Corcoran MD Glucose Ql (U) Negative Normal NEG [facility] Comment on above: Performed By: #### U AX, UMICAO ####[address] [phone] Director: Estevan Corcoran MD Ketones Ql (U) Negative Normal NEG [facility] Comment on above: Performed By: #### U AX, UMICAO ####[address] [address] Lab Director: Estevan Corcoran MD Leukocyte esterase Test strip Ql (U) Negative Normal NEG [facility] Comment on above: Performed By: #### U AX, UMICAO ####[place] [address] Lab Director: Estevan Corcoran MD Nitrite,Ur Negative Normal NEG [facility] Comment on above: Performed By: #### U AX, UMICAO ####[place] [address] Lab Director: Estevan Corcoran MD PH,Ur 6.0 Normal 5.0-8.0 [facility] Comment on above: Performed By: #### U AX, UMICAO ####[place], [place] [phone] Director: Estevan Corcoran MD Protein Ql (U) Negative Normal NEG [facility] Comment on above: Performed By: #### U AX, UMICAO ####[place] [address] Lab Director: Estevan Corcoran MD Spec. [place],Ur 1.108 High 1.005-1.03 0 [facility] Comment on above: Result Comment: POST IV CONTRAST Performed By: #### U AX, UMICAO ####[place], [place] [phone] Director: Estevan Corcoran MD Urobilinogen,Ur Normal Normal NORM [facility] Comment on above: Performed By: #### U AX, UMICAO ####[place] [address] Lab Director: Estevan Corcoran MD Urinalysis with Reflex to Cu ltureon 01-03-2022 Bilirubin Urine Negative NEGATIVE [facility] Color, UA Yellow Yellow [facility] Glucose, Ur Negative NEGATIVE [facility] Interpretation and review of laboratory results Abnormal [facility] Ketones Ql (U) Negative NEGATIVE [facility] Leukocyte esterase Test strip Ql (U) Negative NEGATIVE [facility] Nitrite, Urine Negative NEGATIVE [facility] pH, UA 6.0 5 - 8 [facility] Protein, UA Negative NEGATIVE [facility] Specific [place], UA 1.108 High 1.005 - 1.03 [facility] Comment on above: POST IV CONTRAST Turbidity UA Cloudy Abnormal Clear [facility] Comment on above: FOUL ODOR Urine Hgb LARGE Abnormal NEGATIVE [facility] Urobilinogen, Urine Normal Normal [facility] Urinalysis,Microon 2 Bacteria MANY Abnormal NONE [facility] Comment on above: Performed By: #### U AXTERESAO ####[place] [address] lab Director: Estevan Corcoran MD Epithelial cells LM Ql (Urine sed) TOO NUMEROUS TO COUNT Normal 0-5 [facility] Comment on above: Performed By: #### U AXGEORGES ####[place] [address] lab Director: Estevan Corcroan MD Other Observations Utilizing a urinalys is as the only screening method to exclude a potential Abnormal NREQ [facility] Comment on above: Result Comment: urop athogen can be unreliable in many patient populations. Rapid screening tests are less sensitive than culture and if UTI is a clinical possibility, culture should be considered despite a negative urinalysis. Performed By: #### U AXGEORGES ####[place] [id number] lab Director: Estevan Corcoran MD Urine RBC's 2 TO 5 Normal 0-2 [facility] Comment on above: Performed By: #### U AXPRABHAKARICAO ####[facility] [place] [address] lab Director: Estevan Corcoran MD Urine WBC's 2 TO 5 Normal 0-5 [facility] Comment on above: Performed By: #### U AX, UMICAO ####[facility] [place] [address] lab Director: Estevan Corcoran MD CT LUMBAR [...] leg pain. Follow-up MRI may be helpful. [facility] RIS CONSOLIDATED EXAMINATION: CT OF THE [...] SOFT TISSUES/RETROPERITONEUM: No paraspinal mass is seen. [facility] Body Beatty MD - 08/19/2021 EXAMINATION: CT OF [...] leg pain. Follow-up MRI may be helpful. [employer] Work Phone: Radiology Study observation (narrative) [employer] Work Phone: CT LUMBAR SPINE WO CONTRASTO rdered By: Boyd Beatty on 08-19-2021 [facility] Work Phone: Vital Signs Date Time Vital Sign Value Performing Clinician Elena melton 02-26-2024 09:54-0500 Body mass index (BMI) [Ratio] 33.12 kg/m2 Sanjeev Jessica DO Work Phone: [facility] 02-26-2024 09:54-0500 Body weight 90.27 kg Sanjeev Jessica DO Work Phone: [facility] 02-26-2024 09:54-0500 Diastolic blood pressure 80 mm[Hg] Sanjeev Jessica DO Work Phone: [facility] 02-26-2024 09:54-0500 Systolic blood pressure 130 mm[Hg] Sanjeev Jessica DO Work Phone: [facility] 01-18-2024 14:03-0400 Body height 165.1 cm [facility] 3 [facility] 01-18-2024 14:03-0400 Body mass index (BMI) [Ratio] 31.45 kg/m2 [facility] 3 [facility] 01-18-2024 14:03-0400 Body weight 85.73 kg Metro 3 [facility] 01-03-2024 10:48-0400 Body mass index (BMI) [Ratio] 33.75 kg/m2 Sanjeev Jessica DO Work Phone: [facility] 01-03-2024 10:48-0400 Body weight 91.99 kg Sanjeev Jessica DO Work Phone: [facility] 01-03-2024 10:48-0400 Diastolic blood pressure 74 mm[Hg] Sanjeev Jessica DO Work Phone: [facility] 01-03-2024 10:48-0400 Systolic blood pressure 116 mm[Hg] Sanjeev Jessica DO Work Phone: [facility] 06-12-2023 10:05-0400 Body height 165.1 cm Rohit Metzger MD Work Phone: [facility] 06-12-2023 10:05-0400 Body mass index (BMI) [Ratio] 38.94 kg/m2 Rohit Metzger MD Work Phone: [facility] 06-12-2023 10:05-0400 Body weight 106.14 kg Rohit Metzger MD Work Phone: [facility] 05-16-2023 13:48-0500 Body height 165.1 cm Rohit [facility]zger MD [facility] Phone: [facility] 05-16-2023 13:48-0500 Body mass index (BMI) [Ratio] 38.94 kg/m2 Rohit Metzger MD Work Phone: [facility] 05-16-2023 13:48-0500 Body weight 106.14 kg Rohit Metzger MD Work Phone: [facility] 01-02-2023 10:00-0400 Body height 162.56 cm Johnathon Winter Other [employer] Other 01-02-2023 10:00-0400 Body mass index (BMI) [Ratio] 42.91 kg/m2 Johnathon Winter Other [employer] Other 01-02-2023 10:00-0400 Body weight 113.4 kg Johnathon Winter Other [employer] Other 01-02-2023 10:00-0400 Diastolic blood pressure 82 mm[Hg] Johnathon Winter Other [employer] Other 01-02-2023 10:00-0400 Systolic blood pressure 126 mm[Hg] Johnathon Winter Other [employer] Other 2022 11:00-0400 Body height 162.56 cm Johnathon Winter Other [employer] Other 2022 11:00-0400 Body mass index (BMI) [Ratio] 44.56 kg/m2 Johnathon Winter Other [employer] Other 2022 11:00-0400 Body weight 117.75 kg Johnathon Winter Other [employer] Other 2022 11:00-0400 Diastolic blood pressure 101 mm[Hg] Johnathon Winter Other [employer] Other 2022 11:00-0400 SaO2% (BldA) [Mass fraction] 100 % Johnathon Winter Other [employer] Other 2022 11:00-0400 Systolic blood pressure 138 mm[Hg] Johnathon Winter Other [employer] Other 10-11-2022 18:45-0400 Body height 165.1 cm Roxie Garcia MD Work Phone: [employer] 10-11-2022 18:45-0400 Body mass index (BMI) [Ratio] 43.93 kg/m2 Roxie Garcia MD Work Phone: [employer] 10-11-2022 18:45-0400 Body temperature 99 [degF] Roxie Garcia MD Work Phone: [employer] 10-11-2022 18:45-0400 Body weight 119.75 kg Roxie Garcia MD Work Phone: [employer] 10-11-2022 18:45-0400 Diastolic blood pressure 108 mm[Hg] Roxie Garcia MD Work Phone: [employer] 10-11-2022 18:45-0400 Heart rate 87 /min Roxie Garcia MD Work Phone: [facility] [employer] 10-11-2022 18:45-0400 Respiratory rate 16 /min Roxie Garcia MD Work Phone: [facility] [employer] 10-11-2022 18:45-0400 SaO2% (BldA) [Mass fraction] 98 % Roxie Garcia MD Work Phone: [facility] [employer] 10-11-2022 18:45-0400 Systolic blood pressure 160 mm[Hg] Roxie Garcia MD Work Phone: [facility] [employer] 01-03-2022 13:54-0400 Diastolic blood pressure 95 mm[Hg] Teo Morean DO [facility] [employer] 01-03-2022 13:54-0400 Heart rate 61 /min Teo Morean DO [facility] [employer] 01-03-2022 13:54-0400 SaO2% (BldA) [Mass fraction] 100 % Teo Morean DO [facility] [employer] 01-03-2022 13:54-0400 Systolic blood pressure 142 mm[Hg] Teo Morean DO [facility] [employer] 01-03-2022 11:46-0400 Body height 165.1 cm Teo Froylanfman DO [facility] [employer] 01-03-2022 11:46-0400 Body mass index (BMI) [Ratio] 44.1 kg/m2 Teo Morean DO [facility] [employer] 01-03-2022 11:46-0400 Body temperature 97.7 [degF] Teo Froylanfman DO [facility] [employer] 01-03-2022 11:46-0400 Body weight 120.2 kg Teo Morean DO [facility] [employer] 01-03-2022 11:46-0400 Respiratory rate 16 /min Teo Morean DO [facility] [employer] 08-19-2021 18:03-0400 Diastolic blood pressure 98 mm[Hg] Radha Sanders MD Work Phone: [facility] [employer] 08-19-2021 18:03-0400 Heart rate 92 /min Radha Sanders MD Work Phone: [email or web address] 08-19-2021 18:03-0400 Respiratory rate 16 /min Radha Sanders MD Work Phone: [employer] 08-19-2021 18:03-0400 SaO2% (BldA) [Mass fraction] 96 % Radha Sanders MD Work Phone: [employer] 08-19-2021 18:03-0400 Systolic blood pressure 145 mm[Hg] Radha Sanders MD Work Phone: [employer] 08-19-2021 16:28-0400 Body height 165.1 cm Radha Sanders MD Work Phone: [employer] 08-19-2021 16:28-0400 Body mass index (BMI) [Ratio] 45.76 kg/m2 Radha Sanders MD Work Phone: [employer] 08-19-2021 16:28-0400 Body temperature 98.6 [degF] Radha Sanders MD Work Phone: [employer] 08-19-2021 16:28-0400 Body weight 124.74 kg Radha Sanders MD Work Phone: [employer] Encounters Encounter Date Encounter Type Care Provider Facility Start: 02-26-2024 End: 02-26-2024 Bamboo flowsheet Sanjeev Jessica DO Work Phone: [facility] Start: 02-26-2024 End: 02-26-2024 Bamboo flowsheet Sanjeev Jessica DO Work Phone: [facility] Start: 02-26-2024 End: 02-26-2024 Office outpatient visit 15 minutes Sanjeev Jessica DO Work Phone: [facility] Comment on above: Breast pain Start: 02-26-2024 End: 02-26-2024 ambulatory SANJEEV JESSICA Not Available Start: 01-26-2024 End: 01-26-2024 Orders Only Alfonso Liang MD Work Phone: [facility] Start: 01-26-2024 End: 01-26-2024 Evaluation and management of inpatient FIDEL MARTINEZ [facility] Start: 01-25-2024 End: 01-26-2024 ambulatory SEBASTIEN PRICE [facility] Start: 01-18-2024 End: 01-18-2024 Admission to [facility] Phone Call Provider 3 [facility] Start: 01-18-2024 End: 01-18-2024 Evaluation and management of inpatient JOHNATHON WINTER [facility] Start: 01-14-2024 End: 01-14-2024 Emergency department patient visit Santy Saeedshannon Facility:[facility] Start: 01-03-2024 End: 01-03-2024 Bamboo flowsheet Sanjeev Jessica DO Work Phone: [facility] Start: 01-03-2024 End: 01-03-2024 Bamboo flowsheet Sanjeev Jessica DO Work Phone: [facility] Start: 01-03-2024 End: 01-03-2024 Postop follow up visit related to original px Sanjeev Jessica DO Work Phone: [facility] Comment on above: Postop check; Low ferritin level Start: 01-03-2024 End: 01-03-2024 ambulatory SANJEEV JESSICA Not Available Start: 01-03-2024 End: 01-03-2024 ambulatory MARTÍN [facility] Start: 12-06-2023 End: 12-06-2023 Departed Referred DO Sanjeev Jessica Work Phone: [facility] [place] Work Phone: Start: 12-06-2023 End: 12-06-2023 ambulatory Sanjeev Jessica [facility] Work Phone: Start: 11-29-2023 Non-patient / Non-visit DO Cor ey Jessica Work Phone: [facility] Work Phone: Start: 11-29-2023 End: 11-29-2023 ambulatory SANJEEV JESSICA Not Available Start: 11-22-2023 End: 11-22-2023 ambulatory MARTÍN JORDAN [facility] Start: 11-20-2023 End: 11-20-2023 ambulatory Christiano Rivera MD Facility:[facility] Start: 11-13-2023 End: 11-13-2023 ambulatory Christiano Rivera MD Facility:[facility] Start: 10-25-2023 Non-patient / Non-visit DO Cor ey Jessica Work Phone: [facility] Work Phone: Start: 08-23-2023 End: 08-23-2023 ambulatory KELI Resendez Facility:[facility] Start: 08-02-2023 End: 08-02-2023 ambulatory ROBERT URRUTIA Not Available Start: 07-31-2023 End: 07-31-2023 ambulatory Bhavin Montgomery MD Facility:[facility] Start: 07-19-2023 End: 07-19-2023 ambulatory SANJEEV JESSICA Not Available Start: 07-17-2023 End: 07-17-2023 ambulatory Bhavin Montgomery MD Facility:[facility] Start: 06-26-2023 End: 06-26-2023 ambulatory Bhavin Montgomery MD Facility:[facility] Start: 06-15-2023 End: 06-15-2023 ambulatory SANJEEV JESSICA Not Available Start: 06-12-2023 End: 06-12-[address] 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) Start: 06-06-2023 ambulatory RENY Amaya [facility] Start: 05-24-2023 Orders Only Reny barlow AUTOMOT[employer] GLAZIER-GENERAL SURGEON Work Phone: [facility] Comment on above: Herniated lumbar int ervertebral disc (Primary Dx); Lumbar radiculopathy, chronic Start: 05-23-2023 End: 05-23-2023 ambulatory Tee Peterson [facility] Work Phone: Start: 05-23-2023 End: 05-23-2023 Departed Referred MD Tee Peterson Work Phone: [facility] Start: 05-19-2023 End: 05-19-2023 ambulatory RENY NO [facility] Start: 05-16-2023 End: 05-16-2023 ambulatory ROHIT SMITH V [facility] Start: 05-16-2023 End: 05-16-2023 Office outpatient new 30 minutes Rohit Smith MD Work Phone: 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 Comment on above: Herniated lumbar int ervertebral disc (Primary Dx) Start: 05-10-2023 End: 05-10-2023 ambulatory Johnathon Winter Other [facility] [employer] Other Start: 05-10-2023 Encounter by kriss Winter [facility] Start: 05-10-2023 Non-patient / Non-visit MD Jones Work Phone: [facility] [email or web address] Work Phone: Start: 05-04-2023 End: 05-04-2023 Office outpatient visit 10 minutes Oswaldo Dee NP Work Phone: [facility] Comment on above: 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); Pain in finger of right hand Start: 05-04-2023 End: 05-04-2023 ambulatory RENY ONEAL [facility] Start: 05-01-2023 End: 05-01-2023 ambulatory SANJEEV LOPEZ Not Available Start: 04-19-2023 End: 04-19-2023 ambulatory Scottie Lyn Other [employer] Other Start: 04-19-2023 Telephone encounter Scottie Lyn [facility] Start: 04-14-2023 End: 04-14-2023 Orders Only Serina Rodriguez RMA [facility] Comment on above: Back pain, unspecifi ed back location, unspecified back pain laterality, unspecified chronicity (Primary Dx) Start: 04-12-2023 End: 04-12-2023 ambulatory Johnathon Winter Other [employer] Other Start: 04-12-2023 Telephone encounter Johnathon Winter [facility] Start: 04-11-2023 End: 04-11-2023 ambulatory Johnathon Winter Other [employer] Other Start: 04-11-2023 Telephone encounter Johnathon Winter [facility] Start: 04-10-2023 End: 04-10-2023 ambulatory Johnathon Winter Other [employer] Other Start: 04-10-2023 Encounter by kriss Winter [facility] Start: 03-16-2023 End: 03-16-2023 ambulatory OSWALDO DEE Not Available Start: 03-09-2023 End: 03-09-2023 ambulatory Sanchez DICKEY Facility:[facility] Start: 01-30-2023 End: 01-30-2023 ambulatory Johnathon Winter Other [employer] Other Start: 01-30-2023 Telephone encounter Johnathon Winter [facility] Start: 01-02-2023 End: 01-02-2023 ambulatory Johnathon Winter Other [employer] Other Start: 01-02-2023 Office outpatient vi sit 15 minutes Johnathon Winter [facility] Start: 12-09-2022 End: 12-09-2022 ambulatory Johnathon Winter Other [employer] Other Start: 12-09-2022 Telephone encounter Johnathon Winter [facility] Start: 12-08-2022 End: 12-08-2022 ambulatory Johnathon Winter Other [employer] Other Start: 12-08-2022 Telephone encounter Johnathon Winter [facility] Start: 2022 End: 2022 ambulatory Johnathon Winter Other [employer] Other Start: 2022 Office outpatient ne w 30 minutes Johnathon Winter [facility] Start: 10-11-2022 End: 10-11-2022 Emergency department patient visit JOHNATHON WINTER [facility] Start: 10-11-2022 End: 10-11-2022 Emergency department patient visit Roxie Garcia MD Work Phone: [facility] Emergency Department Comment on above: Sprain of right ankl e, unspecified ligament, initial encounter (Primary Dx) Start: 07-11-2022 End: 07-11-[address] SANJEEV LOPEZ . Facility:[facility] Start: 04-29-2022 End: 04-30-[address] SANJEEV LOPEZ . Facility:[facility] Start: 02-16-2022 End: 02-16-2022 Emergency department patient visit JOHNATHON WINTER [facility] Start: 01-03-2022 End: 01-03-2022 Emergency department patient visit JOHNATHON WINTER [facility] Start: 01-03-2022 End: 01-03-2022 Emergency department patient visit Teo Mina Aguerojoanne MUSTAFA [facility] ED Comment on above: Gastroenteritis (Neetu emil Dx) Start: 08-19-2021 End: 08-19-2021 Emergency department patient visit Radha Sanders MD Work Phone: [facility] Comment on above: Herniated lumbar int ervertebral disc (Primary Dx) Procedures Date Procedure Procedure Detail Performing Clinician Start: 06-12-2023 Follow-up visit Follow-up ROHIT CAMEJO V Start: 10-11-2022 Radex ankle complete minimum 3 views Bailee Lindanings AUTOMOTIVE GLAZIER - GENERAL SURGEON Work Phone: Start: 01-03-2022 Urinalysis microscop ic only Zachariah Cristian AUTOMOTIVE GLAZIER - DIE CUT OPERATOR Work Phone: Start: 01-03-2022 Urnls dip stick/tabl et rgnt auto w/o microscopy Zachariah Cristian AUTOMOTIVE GLAZIER - DIE CUT OPERATOR Work Phone: Start: 01-03-2022 Ct abdomen & pelvis w/contrast material Zachariah Salespp AUTOMOTIVE GLAZIER - DIE CUT OPERATOR Work Phone: Start: 01-03-2022 Assay of lipase Zachariah Cristian AUTOMOTIVE GLAZIER - DIE CUT OPERATOR Work Phone: Start: 12-01-2021 Adult depression screening assessment Serina GARCIAA Start: 08-19-2021 Ct lumbar spine w/o contrast material Radha Sanders MD Work Phone: Plan of Treatment Date Care Activity Detail Author Start: 01-25-2025 Adult BMI Screening Adult [facility] Screening [facility] Start: 01-25-2025 Tobacco Screening Tobacco Screening [facility] Start: 01-17-2025 Adult BMI Screening Adult BMI Screening [facility] Start: 01-02-2025 Tobacco Screening Tobacco Screening [facility] Start: 07-22-2024 End: 07-22-2024 Patient encounter procedure 07/22/2024 3:00 PM EDT Office Visit [facility] [address] [place] [id number] Sanjeev Lopez DO [address] [place] [address] [facility] Start: 06-11-2024 Adult BMI Screening Adult BMI Screening [facility] Start: 06-11-2024 Tobacco Screening Tobacco Screening [facility] Start: 05-16-2024 Adult BMI Screening Adult BMI Screening [facility] Start: 05-16-2024 Tobacco Screening Tobacco Screening [facility] Start: 05-08-2024 Adult BMI Screening Adult BMI Screening [facility] Start: 05-08-2024 Tobacco Screening Tobacco Screening [facility] Start: 04-14-2024 Adult BMI Screening Adult BMI Screening [facility] Start: 04-14-2024 Tobacco Screening Tobacco Screening [facility] Start: 02-26-2024 End: 04-27-2025 MG Breast - bilateral Diagnostic Bilateral diagnostic mammogram Imaging Routine Breast pain Expected: 02/26/2024 (Approximate), Expires: 04/27/2025 [facility] Work Phone: Comment on above: Expected: 02/26/2024 (Approximate), Expi res: 04/27/2025 Start: 02-26-2024 End: 02-26-2024 Patient encounter procedure 02/26/2024 10:00 AM EST Office Visit [facility] [address] [place] [address] Sanjeev Lopez, [address] [place] [address] Arrived [facility] Comment on above: Arrived Start: 01-25-2024 End: 01-25-2024 Admission to same day surgery center 01/25/2024 10:00 AM EDT - 01/25/2024 1:59 PM EDT Surgery [facility] - Surgery [address] [place] [address] Sebastien Price, DO [facility] [facility], [address] [place] [address] PANNICULECTOMY [facility] - Surgery Comment on above: PANNICULECTOMY Start: 01-25-2024 End: 01-25-2024 PANNICULECTOMY PANNICULECTOMY Panniculitis affecting regions of neck and back, site unspecified 01/25/2024 10:00 AM EDT [facility] Start: 01-25-2024 Subsequent hospital visit by physician 01/25/2024 10:00 AM EDT Hospital Encounter [facility] - Surgery [address] [place] [place] [address] LanceSebastien hensley, DO [address] [facility], [address] [place] [address] [facility] Start: 01-03-2024 End: 01-03-2024 Patient encounter procedure 01/03/2024 10:50 AM EDT Office Visit [facility] [address] [place] [id number] Sanjeev Lopez DO [address] [place] [address] Arrived [facility] Comment on above: Arrived Start: 12-03-2023 Influenza vaccination Influenza Vaccine [facility] Start: 07-19-2023 End: 07-19-2023 Patient encounter procedure 07/19/2023 1:45 PM EDT Office Visit [facility] [address] [facility] [address] [place] [address] Vishal Martin DO [address] [place] [address] [facility] Start: 07-17-2023 End: 07-17-2023 Patient encounter procedure 07/17/2023 10:00 AM EDT Office Visit [facility] [address] [place] [address] Sanjeev Lopez, [address] [place] [address] [facility] Start: 06-12-2023 End: 06-12-2023 Patient encounter procedure 06/12/2023 10:05 AM EDT Office Visit [facility] [address] [facility] [address] [place] [phone] Rohit Smith MD [address] [place] [address] [facility] Start: 05-19-2023 End: 05-19-2023 Patient encounter procedure 05/19/2023 10:15 AM EST Appointment [facility] [address] [place] [phone] [facility] Start: 05-16-2023 End: 05-16-2023 Patient encounter procedure 05/16/2023 1:45 PM EST Office Visit [facility] [address] [facility] [address] [place] [phone] Rohit Smith MD [address] [place] [address] [facility] Start: 05-08-2023 End: 05-08-2023 Patient encounter procedure 05/08/2023 1:30 PM EST Office Visit [facility] [address] [facility] [facility] [place] [phone] Reny No, AUTOMOTIVE GLAZIER-GENERAL SURGEON [address] [place] [address] [facility] Start: 04-14-2023 End: 04-14-2024 XR Lumbar spine Views W flexion and W extension X-ray spine lumbar ap, lateral, flexion and extension only Imaging Routine Back pain, unspecified back location, unspecified back pain laterality, unspecified chronicity Expected: 04/14/2023, Expires: 04/14/2024 [facility] Work Phone: Comment on above: Expected: 04/14/2023, Expires: Start: 12-02-2022 Influenza vaccination Influenza Vaccine [facility] Start: 12-01-2022 Depression Screening Depression Screening [facility] Start: 11-01-2022 Influenza vaccination Flu vaccine (#1) [facility] Start: 09-03-2022 Adult BMI Follow Up Plan Adult BMI Follow Up Plan [facility] Start: 12-02-2021 Influenza vaccination Flu vaccine (Season Ended) [facility] Start: 11-01-2021 Influenza vaccination Flu vaccine (#1) [employer] [facility] Start: 2017 Diabetes screen Diabetes screen [facility] Start: 2012 Screening for malignant neoplasm of cervix [facility] Start: 12-01-2003 Screening for malignant neoplasm of cervix Pap smear [facility] Start: 2001 DTaP,Tdap and Td Vaccines (1 - Tdap) DTaP,Tdap and Td Vaccines (1 - Tdap) [facility] Start: 2001 DTaP/Tdap/Td vaccine (1 - Tdap) DTaP/Tdap/Td vaccine (1 - Tdap) [facility] Start: 2000 Adult BMI Follow Up Plan Adult BMI Follow Up Plan [facility] Start: 2000 Hepatitis C screening Hepatitis C screen [facility] Start: 1994 Depression Screen Depression Screen [facility] Start: 12-01-1987 COVID-19 Vaccine (1) COVID-19 Vaccine (1) [facility] Start: 12-01-1983 Varicella vaccine (1 of 2 - 2-dose childhood series) Varicella vaccine (1 of 2 - 2-dose childhood series) [facility] Start: 06-01-1983 COVID-19 Vaccine (#1) COVID-19 Vaccine (#1) [facility] [employer] Payers Date Payer Category Payer Self-pay 2022 [employer] Blue [employer] BCBS [id number] 2022 [employer] [facility] - P[facility] [id number] 2022 Unknown [id number] 2022 Unknown [id number] 2020 Unknown [id number] [id number]. [id number] 1982 Unknown [id number] 2.840.1.729708.3.579. 2.593 1982 Unknown [id number] 2.16840.1.393074.3.579. 2.593 1982 Unknown [id number] 2.16840.1.848767.3.579. 2.175 1982 Unknown [id number] 2.16840.1.340259.3.579. 2.175 1982 Unknown [id number] 2.16840.1.172281.3.579. 2.175 1982 Unknown [id number] 2.16840.1.361873.3.579. 2.1285 1982 Unknown [id number] 05.19.830.1.039399.3.579. 2.1285 1982 Unknown [id number] 2.1.017430.3.579. 2.1285 1982 Unknown [id number] 2.840.1.963481.3.579. 2. 1982 Unknown [id number] 2.1.444156.3.579. 2. 1982 Unknown [id number] .1.872185.3.579. 2. 1982 Unknown [id number] .1.441093.3.579. 2. 1982 Unknown [id number] .1.813943.3.579. 2. 1982 Unknown [id number] .1.174342.3.579. 2.1285 1982 Unknown [id number] .1.419803.3.579. 2.1285 1982 Unknown [id number] .1.949143.3.579. 2.1285 1982 Unknown [id number] .1.124006.3.579. 2.1285 1982 Unknown [id number] .1.760160.3.579. 2.1285 1982 Unknown [id number] .1.177608.3.579. 2.1285 1982 Unknown [id number] .1.150431.3.579. 2.1285 1982 Unknown [id number] 05.19.830.1.989389.3.579. 2.1285 1982 Unknown [id number] 840.1.804007.3.579. 2.1286 1982 Unknown [id number] 2.16840.1.752956.3.579. 2.8 1982 Unknown [id number] 2.16840.1.339120.3.579. 2.8 1982 Unknown [id number] 2.16840.1.854193.3.579. 2. 1982 Unknown [id number] 2.840.1.427473.3.579. 2.1258 1982 Unknown [id number] 2.840.1.547467.3.579. 2.1258 1982 Unknown [id number] 2.840.1.770362.3.579. 2.1258 1982 Unknown [id number] 2.840.1.001741.3.579. 2.1258 1982 Unknown [id number] 2.840.1.208474.3.579. 2.1258 1982 Unknown [id number] 2.840.1.693164.3.579. 2.1258 1982 Unknown [id number] 2.16840.1.940011.3.579. 2.1258 1982 Unknown [id number] 2.840.1.363815.3.579. 2.1258 1982 Unknown [id number] 2.840.1.058352.3.579. 2.1258 1982 Unknown [id number] 2.16840.1.600124.3.579. 2.1259 1959 Unknown [id number] Unknown [id number] 2.840.1.834153.3.579. 2.531 Social History Date Type Detail Facility Start: 06-15-2015 End: 10-09-2022 Tobacco smoking status [facility] Never smoked tobacco [facility] Start: 06-15-2015 End: 07-09-2023 Tobacco use and exposure Smokeless tobacco non-user [address] Phone: Start: 08-19-2021 End: 01-26-2024 Alcohol intake Current non-drinker of alcohol (finding) [address] Phone: Start: 08-19-2021 End: 12-06-2023 [facility] Start: 06-15[facility]2015 History SDOH Alcohol Comment rarely [address] Phone: Start: 1980 Sex Assigned At Not on file [address] Phone: Start: 08-09-2021 End: 01-03-2022 Exposure to SARS-CoV-2 (event) Not sure [address] Phone: History of tobacco use Passive smoker [facility] [employer] Phone: Start: 04-14-2023 End: 12-06-2023 Sex Assigned At [facility] Adolescent depressio n screening assessment 0 [facility] Start: 05-04-2023 End: 02-26-2024 Alcohol intake Ex-drinker (finding) [facility] Start: 10-09-2022 Alcohol Comment Alcohol: 1 or 2 drinks on typical day/monthly or less. Caffeine: 1-2 cups/day tea [facility] Start: 1980 Sex Assigned At Female [facility] Start: 09-21-2022 Gender identity Identifies as female gender (finding) [facility] Start: 09-21-2022 Sexual orientation Heterosexual (finding) [facility] Start: 11-06-2014 Sex Female (finding) [facility] Has the electric, [employer] s, oil, or water company threatened to shut off services in your home in past 12Mo No [facility] Medical Equipment Procedure Code Equipment Code Equipment Origin al Text Equipment Identifier Dates Start: 11-29-2023 Goals Date Patient Goal Desired Activity /State Personal health goal Comment on above: Formatting of this n ote might be different from the original. Evaluation of progress towards goal: johns removal; pain management Clinical Notes 08-19-2021 to 02-26-2024 Monique Cantrell LPN - 02/26/2024 10:00 AM Nohemi Liang MD - 01/26/2024 5:57 PM Libia Atkinson LPN - 01/03/2024 10:50 AM Maricruz Cantrell LPN - 01/03/2024 10:50 AM EDT Note Date & Type Note Facility 02-26-2024 History of Present illness Narrative Reason for Appointment: Patient ID: Cindy Dumont is a 43 y.o. female who presents for Breast Problem Patient presents today for Acute Visit. MEDICATIONS Current Outpatient Medications Medication Instructions Alcohol Swabs (B-D SINGLE USE SWABS REGULAR) pads amphetamine-dextroamphetamine (Adderall) 20 MG tablet Take 1 tablet (20 mg) in the afternoon for ADHD amphetamine-dextroamphetamine XR (Adderall XR) 30 MG 24 hr capsule 30 mg, Daily RT Blood Glucose Monitoring Suppl (D-JayCut Glucometer) w/Device kit 1 kit, Does not apply, Daily, Use four times daily to check FSBS. In the morning prior to breakfast & 1 hour after each meal for a total of 4times daily. Lancets (OneTouch Delica Plus [id number]) misc MONOJECT 3CC SYRINGE 3 ML misc Mounjaro 10 MG/0.5ML solution auto-injector INJECT 0.5 MLS SUBCUTANEOUSLY ONCE WEEKLY OneTouch Verio test strip Qelbree 200 mg, Nightly ALLERGIES Allergies Allergen Reactions Topiramate Swelling PROBLEMS Active Ambulatory Problems Diagnosis Date Noted Breast pain 10/06/2022 Chronic migraine without aura, not intractable, without status migrainosus ([facility]/HCC) 10/06/2022 Frequent headaches 10/06/2022 Hallux valgus (acquired), left foot 10/06/2022 Insulin resistance 10/06/2022 Labial cyst 10/06/2022 Menorrhagia 10/06/2022 Morbid obesity ([facility]/HCC) 10/06/2022 Polycystic ovaries 10/06/2022 Weight gain 10/06/2022 Resolved Ambulatory Problems Diagnosis Date Noted No Resolved Ambulatory Problems Past Medical History: Diagnosis Date Encounter for gynecological examination (general) (routine) without abnormal findings Fibrocystic breast 05/2022 Migraine ([facility]) Morbid obesity with BMI of 45.0-49.9, adult (CMS/HCC) PCOS (polycystic ovarian syndrome) Pre-diabetes Rectal bleeding Off and on since 2018 HISTORY PAST MEDICAL HISTORY SOCIAL HISTORY Past Medical History: Diagnosis Date Encounter for gynecological examination (general) (routine) without abnormal findings Fibrocystic breast 05/2022 Frequent headaches Labial cyst Menorrhagia Migraine (CMS/HCC) Chronic Morbid obesity with BMI of 45.0-49.9, adult (CMS/HCC) PCOS (polycystic ovarian syndrome) Pre-diabetes Rectal bleeding Off and on since 2018 Weight gain Social History Tobacco Use Smoking status: Never Smokeless tobacco: Never Substance Use Topics Alcohol use: Not Currently Comment: Alcohol: 1 or 2 drinks on typical day/monthly or less. Caffeine: 1-2 cups/day tea Drug use: Never FAMILY HISTORY Family History Problem Relation Name Age of Onset Hypertension Maternal Grandfather Halbur Heart disease Maternal Grandfather Halbur Stroke Maternal Grandfather Halbur Cancer Maternal Grandfather Halbur Drug abuse Maternal Grandfather Halbur Drug abuse Father Tyrese Diabetes Paternal Grandfather . SURGICAL HISTORY Past Surgical History: Procedure Laterality Date APPENDECTOMY 2006 SECTION, LOW TRANSVERSE 04/2019 SECTION, LOW TRANSVERSE 05/07/2017 CHOLECYSTECTOMY 2005 ENDOMETRIAL ABLATION 12/22/2023 IUD INSERTION 2010 Mirena PAP SMEAR 07/07/2021 negative TUBAL LIGATION US PELVIC COMPLETE 11/2004 PCOS REVIEW OF SYSTEMS Review of Systems: Review of Systems Constitutional: Negative. HENT: Negative. Eyes: Negative. Respiratory: Negative. Cardiovascular: Negative. Gastrointestinal: Negative. Genitourinary: Negative. Musculoskeletal: Negative. Skin: Negative. Neurological: Negative. All other systems reviewed and are negative. Hematological: Negative. Endocrine: Negative. Allergic/Immunologic: Negative. OBJECTIVE Objective: Physical Exam Constitutional: Appearance: Normal appearance. She is well-developed. Genitourinary: Breasts: Breasts are soft. Right: Normal. Left: Normal. Cardiovascular: Rate and Rhythm: Normal rate and regular rhythm. Pulmonary: Effort: Pulmonary effort is normal. Breath sounds: Normal breath sounds. Abdominal: General: Bowel sounds are normal. There is no distension. Palpations: Abdomen is soft. Tenderness: There is no abdominal tenderness. There is no guarding or rebound. Musculoskeletal: General: No swelling. Normal range of motion. Right lower leg: No edema. Left lower leg: No edema. Neurological: Mental Status: She is alert and oriented to person, place, and time. Skin: General: Skin is warm and dry. Psychiatric: Mood and Affect: Mood normal. Behavior: Behavior normal. Vitals and nursing note reviewed. Exam conducted with a investment associate present. Vitals: Estimated body mass index is 33.12 kg/m as calculated from the following: Height as of 08/02/23: 5' 5 . Weight as of this encounter: 199 lb. BP: 130/80 Patient's last menstrual period was 02/09/2024. ASSESSMENT & PLAN ICD-10-CM 1. Breast pain N64.4 Pt presents with bilateral breast pain. Breast exam performed no lumps or palpable masses. Pt advised to use good support and vitamin e lotion and aspercreme. Breast imaging ordered. Documented by Monique Cantrell LPN on behalf of: Sanjeev Lopez DO documented in this encounter [facility] 01-26-2024 History of Present illness Narrative 01/26/2024 6:12 PM Opened this encounter to order [place] but talked to patient's pharmacy that it was an insurance issue and they are going to fulfill the prescription now. No new orders were placed. Dr. Price made aware. ALFONSO LIANG MD PGY4 Gen Surg [employer] documented in this encounter [facility] 01-14-2024 Note Education Materials Neurology Migraine Headache A migraine headache is a very strong throbbing pain on one or both sides of your head. This type of headache can also cause other symptoms. It can last from 4 hours to 3 days. Talk with your doctor about what things may bring on (trigger) this condition. What are the causes? The exact cause of a migraine is not known. This condition may be brought on or caused by: ? Smoking. ? Medicines, such as: ? Medicine used to treat chest pain (nitroglycerin). ? control pills. ? Estrogen. ? Some blood pressure medicines. ? Certain substances in some foods or drinks. ? Foods and drinks, such as: ? Cheese. ? Chocolate. ? Alcohol. ? Caffeine. ? Doing physical activity that is very hard. Other things that may trigger a migraine headache include: ? Periods. ? . ? Hunger. ? Stress. ? Getting too much or too little sleep. ? Weather changes. ? Feeling tired (fatigue). What increases the risk? ? Being 25?55 years old. ? Being female. ? Having a family history of migraine headaches. ? Being . ? Having a mental health condition, such as being sad (depressed) or feeling worried or nervous (anxious). ? Being very overweight (obese). What are the signs or symptoms? ? A throbbing pain. This pain may: ? Happen in any area of the head, such as on one or both sides. ? Make it hard to do daily activities. ? Get worse with physical activity. ? Get worse around bright lights, loud noises, or smells. ? Other symptoms may include: ? Feeling like you may vomit (nauseous). ? Vomiting. ? Dizziness. ? Before a migraine headache starts, you may get warning signs (an aura). An aura may include: ? Seeing flashing lights or having blind spots. ? Seeing bright spots, halos, or zigzag lines. ? Having tunnel vision or blurred vision. ? Having numbness or a tingling feeling. ? Having trouble talking. ? Having weak muscles. ? After a migraine ends, you may have symptoms. These may include: ? Tiredness. ? Trouble thinking (concentrating). How is this treated? ? Taking medicines that: ? Relieve pain. ? Relieve the feeling like you may vomit. ? Prevent migraine headaches. ? Treatment may also include: ? Acupuncture. ? Lifestyle changes like avoiding foods that bring on migraine headaches. ? Learning ways to control your body functions (biofeedback). ? Therapy to help you know and deal with negative thoughts (cognitive behavioral therapy). Follow these instructions at home: Medicines ? Take raqb-lrt-yumtklw and prescription medicines only as told by your doctor. ? If told, take steps to prevent problems with pooping (constipation). You may need to: ? Drink enough fluid to keep your pee (urine) pale yellow. ? Take medicines. You will be told what medicines to take. ? Eat foods that are high in fiber. These include beans, whole grains, and fresh fruits and vegetables. ? Limit foods that are high in fat and sugar. These include fried or sweet foods. Ask your doctor if you should avoid driving or using machines while you are taking your medicine. Lifestyle ? Do not drink alcohol. ? Do not smoke or use any products that contain nicotine or tobacco. If you need help quitting, ask your doctor. ? Get 7?9 hours of sleep each night, or the amount recommended by your doctor. ? Find ways to deal with stress, such as meditation, deep breathing, or yoga. ? Try to exercise often. This can help lessen how bad and how often your migraines happen. General instructions ? Keep a journal to find out what may bring on your migraine headaches. This can help you avoid those things. For example, write down: ? What you eat and drink. ? How much sleep you get. ? Any change to your medicines or diet. ? If you have a migraine headache: ? Avoid things that make your symptoms worse, such as bright lights. ? Lie down in a dark, quiet room. ? Do not drive or use machinery. ? Ask your doctor what activities are safe for you. Where to find more information ? Coalition for Headache and Migraine Patients (CHAMP): headachemigraine.org ? [place] Migraine Foundation: americanmigrainefoundation.org ? National Headache Foundation: headaches.org Contact a doctor if: ? You get a migraine headache that is different or worse than others you have had. ? You have more than 15 days of headaches in one month. Get help right away if: ? Your migraine headache gets very bad. ? Your migraine headache lasts more than 72 hours. ? You have a fever or stiff neck. ? You have trouble seeing. ? Your muscles feel weak or like you cannot control them. ? You lose your balance a lot. ? You have trouble walking. ? You faint. ? You have a seizure. This information is not intended to replace advice given to you by your health care provider. Make sure you discuss any questions you have with your health care p (more content not included)... [facility] 01-03-2024 History of Present illness Narrative Reason for Appointment: Patient ID: Cindy Julia is a 43 y.o. female who presents for Post-op Visit Patient presents today for 2 Week Post Op Follow Up appointment. MEDICATIONS Current Outpatient Medications Medication Instructions Alcohol Swabs (B-D SINGLE USE SWABS REGULAR) pads amphetamine-dextroamphetamine (Adderall) 20 MG tablet Take 1 tablet (20 mg) in the afternoon for ADHD amphetamine-dextroamphetamine XR (Adderall XR) 30 MG 24 hr capsule 30 mg, Oral, Daily RT Blood Glucose Monitoring Suppl (D-Care Glucometer) w/Device kit 1 kit, Does not apply, Daily, Use four times daily to check FSBS. In the morning prior to breakfast & 1 hour after each meal for a total of 4times daily. diazePAM (Valium) 10 MG tablet TAKE 1 TABLET BY MOUTH PREOP Lancets (POWWOW Delica Plus Loclqf01I) misc MONOJECT 3CC SYRINGE 3 ML misc nystatin (Mycostatin) cream Topical, 2 times daily, Dispense cream that does NOT have perfumes added. POWWOW Verio test strip Qelbree 200 mg, Oral, Nightly Tirzepatide (Mounjaro) 10 MG/0.5ML solution pen-injector 0.5 mL, Subcutaneous, Weekly ALLERGIES Allergies Allergen Reactions Topiramate Swelling PROBLEMS Active Ambulatory Problems Diagnosis Date Noted Breast pain 10/06/2022 Chronic migraine without aura, not intractable, without status migrainosus (CMS/HCC) 10/06/2022 Frequent headaches 10/06/2022 Hallux valgus (acquired), left foot 10/06/2022 Insulin resistance 10/06/2022 Labial cyst 10/06/2022 Menorrhagia 10/06/2022 Morbid obesity (CMS/HCC) 10/06/2022 Polycystic ovaries 10/06/2022 Weight gain 10/06/2022 Resolved Ambulatory Problems Diagnosis Date Noted No Resolved Ambulatory Problems Past Medical History: Diagnosis Date Encounter for gynecological examination (general) (routine) without abnormal findings Fibrocystic breast 05/2022 Migraine (CMS/HCC) Morbid obesity with BMI of 45.0-49.9, adult (CMS/HCC) PCOS (polycystic ovarian syndrome) Pre-diabetes Rectal bleeding Off and on since 2017 HISTORY PAST MEDICAL HISTORY SOCIAL HISTORY Past Medical History: Diagnosis Date Encounter for gynecological examination (general) (routine) without abnormal findings Fibrocystic breast 05/2022 Frequent headaches Labial cyst Menorrhagia Migraine (CMS/HCC) Chronic Morbid obesity with BMI of 45.0-49.9, adult (CMS/HCC) PCOS (polycystic ovarian syndrome) Pre-diabetes Rectal bleeding Off and on since 2018 Weight gain Social History Tobacco Use Smoking status: Never Smokeless tobacco: Never Substance Use Topics Alcohol use: Not Currently Comment: Alcohol: 1 or 2 drinks on typical day/monthly or less. Caffeine: 1-2 cups/day tea Drug use: Never FAMILY HISTORY Family History Problem Relation Name Age of Onset Hypertension Maternal Grandfather Halbur Heart disease Maternal Grandfather Halbur Stroke Maternal Grandfather Halbur Cancer Maternal Grandfather Halbur Drug abuse Maternal Grandfather Halbur Drug abuse Father Tyrese Diabetes Paternal Grandfather . SURGICAL HISTORY Past Surgical History: Procedure Laterality Date APPENDECTOMY 2006 SECTION, LOW TRANSVERSE 04/2019 SECTION, LOW TRANSVERSE 05/07/2017 CHOLECYSTECTOMY 2004 ENDOMETRIAL ABLATION 12/22/2023 IUD INSERTION 2010 Mirena PAP SMEAR 07/07/2021 negative TUBAL LIGATION US PELVIC COMPLETE 11/2004 PCOS REVIEW OF SYSTEMS Review of Systems: Review of Systems Constitutional: Negative. HENT: Negative. Eyes: Negative. Respiratory: Negative. Cardiovascular: Negative. Gastrointestinal: Negative. Genitourinary: Negative. Musculoskeletal: Negative. Skin: Negative. Neurological: Negative. All other systems reviewed and are negative. Hematological: Negative. Endocrine: Negative. Allergic/Immunologic: Negative. OBJECTIVE Objective: Physical Exam Constitutional: Appearance: Normal appearance. She is well-developed. Cardiovascular: Rate and Rhythm: Normal rate and regular rhythm. Pulmonary: Effort: Pulmonary effort is normal. Breath sounds: Normal breath sounds. Abdominal: General: Bowel sounds are normal. There is no distension. Palpations: Abdomen is soft. Tenderness: There is no abdominal tenderness. There is no guarding or rebound. Musculoskeletal: General: No swelling. Normal range of motion. Right lower leg: No edema. Left lower leg: No edema. Neurological: Mental Status: She is alert and oriented to person, place, and time. Skin: General: Skin is warm and dry. Psychiatric: Mood and Affect: Mood normal. Behavior: Behavior normal. Vitals and nursing note reviewed. Exam conducted with a investment associate present. Vitals: Estimated body mass index is 33.75 kg/m as calculated from the following: Height as of 08/02/23: 5' 5 . Weight as of this encounter: 202 lb 12.8 oz. BP: 116/74 Patient's last menstrual period was 11/18/2023 (approximate). ASSESSMENT & PLAN ICD-10-CM 1. Postop check Z09 Pt presents for a 2 week postop endometrial ablation. Pt doing well with no complaints. Pt has low ferritin levels, rx for ProFe faxed to pharmacy. Pt voiced understanding. Documented by Monique Cantrell LPN on behalf of: Sanjeev Lopez DO documented in this encounter [facility] 08-23-2023 Note Patient Education Ma terials Follows: [...] (148 mL (more content not included)... [facility] 06-12-2023 History of Present illness Narrative 06/12/2023 Chief Complaint: Chief Complaint Patient presents with Right Hand - Follow-up Rt ring mallet finge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 HPI Karunasalena Dumont is here for further follow up [...] take another few months to subside. Recommended mvtm-qpf-nxwyace pain relievers as needed. She is content [...] of the aforementioned history prepared by the [place] practice provider, and I personally performed the [...] any severe symptoms. documented in this encounter [facility] 05-16-2023 History of Present illness Narrative [facility] Chief Complaint: [...] a snap. She initially followed up with [facility] and was diagnosed with right [...] I personally viewed and interpreted X-rays from [facility] as above. Xrays done in office today: None. Assessment: 1. Mallet deformity of right ring finger - [facility] - [place], [place] 2. Finger injury, right, initial encounter - [facility] - [place], [place] Plan: I discussed treatment options with [...] with her flexion. documented in this encounter [facility] 05-10-2023 Evaluation note Encounter Date Diagnosis Assessment Notes May, Adult ADHD (attention deficit hyperactivity disorder) (ICD-10 - F90.9) [employer] Other 02-01-2024 History of Present illness Narrative* [...] finger for about 2 weeks. Went to [facility]/09 due to having numbness in finger and unable to straighten it. Had XR at . On 03/13, pt went to [facility] and had another XR. Unable to get into hand specialist at [facility] until May 16. Continues to have soreness [...] crooked. PT is RT handed Prior [place]: [facility] [place] 03/09/23, XR, Splint, [facility], XR 03/13/23, Ice, Heat, IBU, [place] ALLERGIES: No Known Allergies HOME MEDICATIONS: Current Outpatient Medications Medication Instructions amphetamine-dextroamphetamine (Adderall) 20 MG tablet 1 TABLET ORALLY MID DAY 30 DAYS cyclobenzaprine (Flexeril) 10 MG tablet PLEASE SEE ATTACHED FOR DETAILED DIRECTIONS fluconazole (DIFLUCAN) 100 mg, Oral, Daily nystatin (Mycostatin) 099161 UNIT/GM powder APPLY TO AFFECTED AREA TOPICALLY [...] normal Pronation: normal Supination: normal Muscle Strength Trim Installer: 3/5 Other Erythema: absent Pulse: present Comments: [...] develop for requiring urgent evaluation. Oswaldo Dee [employer]-GENERAL SURGEON [facility] [id number] Evaluation note* Encounter Date Diagnosis Assessment Notes Treatment Notes Treatment Clinical Notes Apr, Adult ADHD (attentio n deficit hyperactivity disorder) (ICD-10 - F90.9) [employer] Other 01-10-2024 Evaluation note* Encounter Date Diagnosis Assessment Notes Treatment Notes Treatment Clinical Notes Apr, Adult ADHD (attentio n deficit hyperactivity disorder) (ICD-10 - F90.9) [employer] Other 01-09-2024 Evaluation note* Encounter Date Diagnosis Assessment Notes Treatment Notes Treatment Clinical Notes Apr, Adult ADHD (attentio n deficit hyperactivity disorder) (ICD-10 - F90.9) [employer] Other 01-08-2024 Evaluation note* Encounter Date Diagnosis Assessment Notes Treatment Notes Treatment Clinical Notes Apr, Adult ADHD (attentio n deficit hyperactivity disorder) (ICD-10 - F90.9) [employer] Other 12-07-2023 NotePatient Education Materials Follows: Mallet [...] or lying down. General instructions ? Take eipk-vlr-rldgxor and prescription medicines only as told by [...] your health care p (more contentnot included)...[facility] [id number] Evaluation note * Encounter Date Diagnosis Assessment Notes Treatment Notes Treatment Clinical Notes Jan, Adult ADHD (attentio n deficit hyperactivity disorder) (ICD-10 - F90.9) [employer] Other 10-02-2023 Evaluation note* Encounter Date Diagnosis [...] in 3 months or sooner if needed. [employer] Other 09-08-2023 Evaluation note* Encounter Date Diagnosis Assessment Notes Treatment Notes Treatment Clinical Notes Dec, Adult ADHD (attentio n deficit hyperactivity disorder) (ICD-10 - F90.9) [employer] Other 09-07-2023 Evaluation note* Encounter Date Diagnosis Assessment Notes Treatment Notes Treatment Clinical Notes Dec, Adult ADHD (attentio n deficit hyperactivity disorder) (ICD-10 - F90.9) [employer] Other 08-30-2023 Evaluation note* Encounter Date Diagnosis [...] Cutaneous candidiasis (ICD-10 - B37.2) Refilled diflucan. [employer] Other 07-11-2023 Hospital Discharge instructions* Discharge Instructions* RIZWAN Dietz CNP - 10/11/2022 8:08 PM EDT Please call and schedule a follow-up appointment with [facility]. Use an ice pack or bag [...] through Care Everywhere. * RICE: General Info (Belizean) * Ankle Sprain ([place]) [facility] Discharge instructions* Instructions* Radha Sanders MD - 08/19/2021 May use ice or heat, whichever feels better. May use [place] for pain. Prednisone as directed. Follow-up with [...] a follow up appointment THANK YOU!!! From [facility] and [facility] On behalf of the Emergency Department staff at [facility], I would like to thank you for giving us the opportunity to address your health care needs and concerns. We hope that during your visit, our service was delivered in a professional and caring manner. Please keep [facility] in mind as we walk with [...] how we did during your visit at [email or web address] and let us know about your experience * Attachments The following attachments cannot be sent through Care Everywhere. * Herniated Disc (Belizean) [facility]: evaluation note* Diagnosis Herniated lumbar intervertebral disc- Primary Displacement of lumbar intervertebral disc without myelopathy documented in this encounter [address] Phone: [email or web address] note* Diagnosis Gastroenteritis- Primary Other and unspecified noninfectious gastroenteritis and colitis documented in this encounter [facility] [employer] Phone: evalgkztey note* Diagnosis Sprain of right ankle, unspecified ligament, initial encounter- Primary documented in this encounter [facility] [employer] [facility]* Diagnosis Back pain, unspecified back location, unspecified back pain laterality, unspecified chronicity- Primary documented in this encounter [facility] [place] SystemEvaluation noteNo [facility] [employer] Other Evaluation note* Diagnosis 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 Pain in finger of right hand Pain in soft tissues of limb [facility]* Diagnosis Herniated lumbar intervertebral disc- Primary Displacement of lumbar intervertebral disc without myelopathy documented in this encounter [facility] [place] SystemEvaluation note* Diagnosis 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 Finger injury, right, initial encounter documented in this encounter [facility] System[facility]* Diagnosis Herniated lumbar intervertebral disc- Primary Displacement of lumbar intervertebral disc without myelopathy Lumbar radiculopathy, chronic documented in this encounter [facility] [place] SystemEvaluation noteNo assessment information [facility] Work Phone: Evaluation note* Diagnosis Lumbar radiculopathy, chronic- Primary Herniated lumbar intervertebral disc Displacement of lumbar intervertebral disc without myelopathy documented in this encounter [facility] [place] SystemEvaluation note* Diagnosis 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 documented in this encounter [facility] [place] SystemEvaluation note* Diagnosis Postop check Follow-up examination, following unspecified surgery Low ferritin level Other nonspecific findings on examination of blood documented in this encounter [facility] HealthcareEvaluation note* Diagnosis Breast pain Mastodynia [facility] HealthcareHistory general Narrative - Reported* Type Description Date Medical History PCOS/insulin resistant Medical History PCOS (polycystic ovarian syndrom e) Medical History Frequent headaches Medical History Gestational diabetes Medical History Prediabetes Surgical History cholecystectomy 2004 Surgical History appendectomy 2006 Surgical History Hospitalization History see surgical hx [employer] Other Hospital Discharge instructions* Attachments The following attachments cannot be sent through Care Everywhere. * Gastroenteritis ([place]) [facility] [employer] Work Phone: InstructionsNot on filedocumented in this encounter [facility] SystemInstructionsNot on filedocumented in this encounter [facility] SystemInstructionsNot on filedocumented in this encounter [facility] SystemInstructionsNot on filedocumented in this encounter [facility] SystemInstructions* Pre-Procedure Instructions - Bessie Boswell RN - 01/18/2024 3:45 PM EDT Your surgery/procedure is scheduled at [facility] on 01/25/24 at 10 am Arrival Time 8 am [facility] Address: [address] [place] [address], [address] [place] [address] in the Emergency Center Parking lot. Report to the front edger in the Emergency/Surgery Registration lobby of the hospital. Notify your SURGEON if you develop any illness such as a cold, cough, fever, sore throat, vomiting or are hospitalized between now and your surgery. Please call Pre-Admission Clinic at [phone] if you have any questions prior to surgery. For questions the morning of surgery, call the Pre-op Department at [phone]. Medication Instructions (Do not stop your medications without consulting the prescribing physician). Take the following medications the morning of surgery with a sip of water: NONE Diabetic or Weight loss medications: HOLD: Caty LAST DOSE:01/13 Take inhalers as prescribed the morning of surgery. Due to the risk associated with these medications. If these medications are not held per instruction below, your surgery is at an increased risk for cancellation SGLT2 Medications- Hold 3 days prior to surgery: Jardiance, Empagliflozin, Farxiga, Dapagliflozin, Invokana, Canagliflozin GLP-1 Medications (Injection or Pill)- If taken daily hold day of surgery. If taken weekly, hold 1 week prior to surgery: Adlyxin, Byetta, Bydureon, Ozempic, Rybelsus,Trulicity, Victoza, Wegovy, Lixisenatide, Exenatide, Semaglutide, Dulaglutide, Liraglutide GIP/GLP-1(Injection or Pill)- If taken daily hold day of surgery. If taken weekly, hold 1 week prior to surgery: Caty . Blood thinners: Please contact your prescribing physician regarding a stop/hold date for these medications. Medications such as Coumadin, Heparin, Aspirin, Plavix, Eliquis, Pradaxa Diabetics: If you take insulin, contact your prescribing doctor for instructions on how to manage this the night before and the morning of surgery. Non-steriodal Anti-Inflammatory Drugs (NSAIDS)- Hold 3 days prior to surgery unless otherwise directed by your surgeon. Vitamins/Herbal Products: You may continue to take your prescribed vitamins such as potassium, iron, vitamin B, vitamin C, or multivitamin unless specifically instructed by your surgeon to hold. STOPtaking all herbal products/teas one week prior to your surgery. Marijuana: Stop marijuana 72 hours prior to surgery, stop CBD oil 48 hours prior to surgery. If you have been given bowel prep instructions by your surgeon, please call the surgeon's office with any questions about these instructions. What do I do the day of Surgery? Age 2 through adult - Stop all solids by midnight, You may have clear liquids up to 2 hours before surgery, unless otherwise instructed by your surgeon Clear liquids are: water, sports drinks such as Gatorade or G2, or apple juice. You may NOT have: tube feedings, dairy products, alcoholic beverages, orange juice, or any liquids with solids or pulp in it If applicable, shower again with CHG soap the morning of your surgery. If you received a green plastic bracelet, bring it with you the day of surgery and your nurse will put it on you. What do I need to do to prepare for surgery? If you will be going home the same day as your surgery, arrange for an adult over [address] Riding in a bus or taxi by yourself is not permitted. You should not smoke or drink alcohol 24 hours before your surgery. Smoking increases the risk of breathing problems after surgery. Alcohol thins the blood and may cause bleeding problems during surgery If you have been assigned SOWMYA Education by your surgeon's office, please complete this education prior to your surgery. For questions regarding SOWMYA education, reach out to your surgeons office. If you have been given a prescription for occupational, physical or speech therapy, please set up these appointments before your procedure. If you would like to schedule therapy at a [facility] facility, please call [phone] ([phone]). Do not use lotions, creams, powders, perfume, make up, cologne or after-shaves day of surgery. Remove ALL jewelry including wedding rings, body piercings, hair extensions that contain metal, nail wolof, make-up, and contact lens. You may brush your teeth the morning of surgery, but do not swallow the water. Wear your dentures and partial plates to the hospital (no adhesive). Shower the night the before. If applicable, use the CHG (chlorhexidine gluconate) soap or wipes. Please be advised, [place] has transitioned to a cashless payment system. What should I bring to the hospital? If you received a green plastic bracelet, bring it with you the day of surgery and your nurse will put it on you. Eyeglass or contact lens case If you will be spending the night, please bring personal care items and leave them in the car untilyou are taken to your room after surgery. Leave ALL valuables at home. If any of these instructions conflict with those you recieved from the surgeon, please seek clarification from your surgeon's office. DEEP BREATHING EXERCISES This exercise helps promote good air exchange and helps to prevent pneumonia after surgery. Breathe in slowly and deeply through the nose. Hold your breath for a few seconds and then exhale slowly through the mouth. Repeat this three times and then cough. Coughing helps to clear your lungs. If you have had a surgery with an incision into your abdomen or chest, press gently against your incision with a pillow or a folded blanket when you cough. Please be aware - it may not be ulloa to cough following some types of surgeries involving the eyes,ears, sinuses and throat. Always follow your doctor's instructions. LEG EXERCISES These exercises help promote good circulation and help to prevent blood clots after surgery. Point your toes to the ceiling and then point them to the wall. Do this slowly about 15-20 times. You may also move your feet in circles. Do the exercise that is most comfortable for you. If you have had surgery involving your shoulder or arm, we recommend you move your fingers. PRACTICING We ask that you begin practicing these exercises before your surgery. After surgery try to do both exercises at least every 2 hours during the day and early evening. SURGICAL SITE INFECTION AND PREVENTION What is a Surgical Site Infection? Infection can happen to the area of the body where surgery is done. This is called a surgical site infection (SSI). A SSI does not happen very often. Can SSIs be treated? Antibiotics are used to treat SSI. Some patients may need another surgery to treat the infection. The doctor will discuss treatment options with you. What are some of the things that hospitals are doing to prevent SSIs? Soap and water or alcohol hand rub are used before and after caring for each patient.Special soap is used to clean surgery workers hands and arms just before the surgery. Masks, gowns, gloves and hair covers are worn during the surgery to keep the area clean. Hair in the surgery area may be removed with clippers (not razors). A special soap that kills germs is used to clean the skin at the surgery site. Antibiotics may be given before the surgery starts. What can you do to prevent SSIs? Before surgery: You may be asked to shower or bathe with a special soap that kills germs the night before and the day of surgery. Use the soap as you were told. If you smoke, stop or cut down. Ask your doctor about ways to quit. Do not shave near where you will have surgery. Shaving can irritate the skin and make it easier to get and infection. After surgery: Be sure that the doctors and nurses clean their hands before and after touching you. Be sure your family and friends clean their hands before and after visiting you. Do not be afraid to remind them. * Care for your wound at home as told by your doctor or nurse * Call your doctor right away if you have fever, redness, increased pain, or drainage at the surgery site. Further questions? Contact the doctor, nurse or the Infection Prevention and Control department if you have any questions. PATIENT RIGHTS AND RESPONSIBILITIES As a patient at [facility], you have the right to: Receive medical care and be informed of who is taking care of you Be treated with dignity and respect Have a family member/technical account representative of choice and your physician notified of your admission Receive information and actively participate in decisions about your care and treatment Refuse care, treatment and services Decide who may provide your support and speak for you Access latter-day and spiritual services Participate in ethical issues and questions about your care Receive private and confidential care Have appropriate assessment and management of your pain Know guest visitation restrictions or limitations Have an advance directive Access protective services Consent or refuse to participate in research studies or production or recordings, films or other images Have resolution of your complaints Receive information of hospital charges and payment methods Patient/patient technical account representative responsibilities are to: Provide information about health status to facilitate care, treatment and services Follow the treatment, plan, keep appointments and speak up when you do not understand the plan Respect the rights of other patients and healthcare personnel Follow organizational rules and regulations that support quality care and a safe environment Fulfill financial obligations as promptly as possible [facility] SurgeryInstructionsNot on filedocumented in this encounter [facility] [place] SystemInstructionsNot on filedocumented in this encounter [facility]* Pre-Procedure Instructions - Bessie Boswell RN - 01/18/2024 3:45 PM EDT Your surgery/procedure is scheduled at [facility] on 01/25/24 at 10 am Arrival Time 8 am [facility] Address: [address] [place] [address], [address] [place] [address] in the Emergency Center Parking lot. Report to the front edger in the Emergency/Surgery Registration lobby of the hospital. Notify your SURGEON if you develop any illness such as a cold, cough, fever, sore throat, vomiting or are hospitalized between now and your surgery. Please call Pre-Admission Clinic at [phone] if you have any questions prior to surgery. For questions the morning of surgery, call the Pre-op Department at [phone]. Medication Instructions (Do not stop your medications without consulting the prescribing physician). Take the following medications the morning of surgery with a sip of water: NONE Diabetic or Weight loss medications: HOLD: Mounjaro LAST DOSE:01/13 Take inhalers as prescribed the morning of surgery. Due to the risk associated with these medications. If these medications are not held per instruction below, your surgery is at an increased risk for cancellation SGLT2 Medications- Hold 3 days prior to surgery: Jardiance, Empagliflozin, Farxiga, Dapagliflozin, Invokana, Canagliflozin GLP-1 Medications (Injection or Pill)- If taken daily hold day of surgery. If taken weekly, hold 1 week prior to surgery: Adlyxin, Byetta, Bydureon, Ozempic, Rybelsus,Trulicity, Victoza, Wegovy, Lixisenatide, Exenatide, Semaglutide, Dulaglutide, Liraglutide GIP/GLP-1(Injection or Pill)- If taken daily hold day of surgery. If taken weekly, hold 1 week prior to surgery: Mounjaro . Blood thinners: Please contact your prescribing physician regarding a stop/hold date for these medications. Medications such as Coumadin, Heparin, Aspirin, Plavix, Eliquis, Pradaxa Diabetics: If you take insulin, contact your prescribing doctor for instructions on how to manage this the night before and the morning of surgery. Non-steriodal Anti-Inflammatory Drugs (NSAIDS)- Hold 3 days prior to surgery unless otherwise directed by your surgeon. Vitamins/Herbal Products: You may continue to take your prescribed vitamins such as potassium, iron, vitamin B, vitamin C, or multivitamin unless specifically instructed by your surgeon to hold. STOPtaking all herbal products/teas one week prior to your surgery. Marijuana: Stop marijuana 72 hours prior to surgery, stop CBD oil 48 hours prior to surgery. If you have been given bowel prep instructions by your surgeon, please call the surgeon's office with any questions about these instructions. What do I do the day of Surgery? Age 2 through adult - Stop all solids by midnight, You may have clear liquids up to 2 hours before surgery, unless otherwise instructed by your surgeon Clear liquids are: water, sports drinks such as Gatorade or G2, or apple juice. You may NOT have: tube feedings, dairy products, alcoholic beverages, orange juice, or any liquids with solids or pulp in it If applicable, shower again with CHG soap the morning of your surgery. If you received a green plastic bracelet, bring it with you the day of surgery and your nurse will put it on you. What do I need to do to prepare for surgery? If you will be going home the same day as your surgery, arrange for an adult over [address] Riding in a bus or taxi by yourself is not permitted. You should not smoke or drink alcohol 24 hours before your surgery. Smoking increases the risk of breathing problems after surgery. Alcohol thins the blood and may cause bleeding problems during surgery If you have been assigned SOWMYA Education by your surgeon's office, please complete this education prior to your surgery. For questions regarding SOWMYA education, reach out to your surgeons office. If you have been given a prescription for occupational, physical or speech therapy, please set up these appointments before your procedure. If you would like to schedule therapy at a [facility] facility, please call [phone] ([phone]). Do not use lotions, creams, powders, perfume, make up, cologne or after-shaves day of surgery. Remove ALL jewelry including wedding rings, body piercings, hair extensions that contain metal, nail wolof, make-up, and contact lens. You may brush your teeth the morning of surgery, but do not swallow the water. Wear your dentures and partial plates to the hospital (no adhesive). Shower the night the before. If applicable, use the CHG (chlorhexidine gluconate) soap or wipes. Please be advised, [employer] has transitioned to a cashless payment system. What should I bring to the hospital? If you received a green plastic bracelet, bring it with you the day of surgery and your nurse will put it on you. Eyeglass or contact lens case If you will be spending the night, please bring personal care items and leave them in the car untilyou are taken to your room after surgery. Leave ALL valuables at home. If any of these instructions conflict with those you recieved from the surgeon, please seek clarification from your surgeon's office. DEEP BREATHING EXERCISES This exercise helps promote good air exchange and helps to prevent pneumonia after surgery. Breathe in slowly and deeply through the nose. Hold your breath for a few seconds and then exhale slowly through the mouth. Repeat this three times and then cough. Coughing helps to clear your lungs. If you have had a surgery with an incision into your abdomen or chest, press gently against your incision with a pillow or a folded blanket when you cough. Please be aware - it may not be ulloa to cough following some types of surgeries involving the eyes,ears, sinuses and throat. Always follow your doctor's instructions. LEG EXERCISES These exercises help promote good circulation and help to prevent blood clots after surgery. Point your toes to the ceiling and then point them to the wall. Do this slowly about 15-20 times. You may also move your feet in circles. Do the exercise that is most comfortable for you. If you have had surgery involving your shoulder or arm, we recommend you move your fingers. PRACTICING We ask that you begin practicing these exercises before your surgery. After surgery try to do both exercises at least every 2 hours during the day and early evening. SURGICAL SITE INFECTION AND PREVENTION What is a Surgical Site Infection? Infection can happen to the area of the body where surgery is done. This is called a surgical site infection (SSI). A SSI does not happen very often. Can SSIs be treated? Antibiotics are used to treat SSI. Some patients may need another surgery to treat the infection. The doctor will discuss treatment options with you. What are some of the things that hospitals are doing to prevent SSIs? Soap and water or alcohol hand rub are used before and after caring for each patient.Special soap is used to clean surgery workers hands and arms just before the surgery. Masks, gowns, gloves and hair covers are worn during the surgery to keep the area clean. Hair in the surgery area may be removed with clippers (not razors). A special soap that kills germs is used to clean the skin at the surgery site. Antibiotics may be given before the surgery starts. What can you do to prevent SSIs? Before surgery: You may be asked to shower or bathe with a special soap that kills germs the night before and the day of surgery. Use the soap as you were told. If you smoke, stop or cut down. Ask your doctor about ways to quit. Do not shave near where you will have surgery. Shaving can irritate the skin and make it easier to get and infection. After surgery: Be sure that the doctors and nurses clean their hands before and after touching you. Be sure your family and friends clean their hands before and after visiting you. Do not be afraid to remind them. * Care for your wound at home as told by your doctor or nurse * Call your doctor right away if you have fever, redness, increased pain, or drainage at the surgery site. Further questions? Contact the doctor, nurse or the Infection Prevention and Control department if you have any questions. PATIENT RIGHTS AND RESPONSIBILITIES As a patient at [facility], you have the right to: Receive medical care and be informed of who is taking care of you Be treated with dignity and respect Have a family member/technical account representative of choice and your physician notified of your admission Receive information and actively participate in decisions about your care and treatment Refuse care, treatment and services Decide who may provide your support and speak for you Access latter-day and spiritual services Participate in ethical issues and questions about your care Receive private and confidential care Have appropriate assessment and management of your pain Know guest visitation restrictions or limitations Have an advance directive Access protective services Consent or refuse to participate in research studies or production or recordings, films or other images Have resolution of your complaints Receive information of hospital charges and payment methods Patient/patient technical account representative responsibilities are to: Provide information about health status to facilitate care, treatment and services Follow the treatment, plan, keep appointments and speak up when you do not understand the plan Respect the rights of other patients and healthcare personnel Follow organizational rules and regulations that support quality care and a safe environment Fulfill financial obligations as promptly as possible documented in this [facility] for [facility] (narrative)* Consultation (Routine) - Pending Review Specialty Diagnoses / Procedures Referred By Contact Referred To Contact Physical Medicine and Rehabilitation Diagnoses Herniated lumbar intervertebral disc Lumbar radiculopathy, chronic Reny No APRN-CNP [address] [facility] [address] [place] [address] Vishal Martin DO [address] [facility] [address] [place] [address] Referral ID Status Reason Start Date Expiration Date Visits Requested Visits Authorized [id number] Pending Review Specialty Services Required 05/24/2023 05/23/[address] [facility] ([facility]ative[facility] Consultation (Routine) - Pending Review Specialty Diagnoses / Procedures Referred By Angela hart Referred To Contact Pain Medicine Diagnoses Lumbar radiculopathy, chronic Herniated lumbar intervertebral disc Reny No, AUTOMOTIVE GLAZIER-GENERAL SURGEON [address] [place] [address] Davis Silva MD [address] [place] [address] Referral ID Status Reason Start Date Expiration Date V isits Requested Visits Authorized [id number] Pending Review 06/12/2023 06/11/2024 1 1 [employer] [facility] Advance Directives No Advanced Directives Records FoundDocuments on File Type Date Recorded 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 Ongoing [...] site of digit, initial encounter Nicole Lockwood, AUTOMOTIVE GLAZIER-GENERAL SURGEON [address], [place] [address] Rohit Smith MD [address] [place] [address] [place] [phone] Referral ID Status Reason Start Date Expiration Date Visits Requested Visits Authorized [id number] Pending Review Specialty Services Required 3 03/12/2024 1 1 Reason Comments Follow-up Rt ring mallet hemante 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 Reason Comments Post-op Visit Reason Comments Breast Problem Ordered Prescriptions (unrec ognized section and content) [...] would not scan at bedside. Verified with [facility] prior to administration.) Scheduled Medication Order [...] Care Teams (unrecognized sec tion and content) Ways Operator Relationship Specialty Start Date End Date Johnathon Winter MD PCP - General Family Medicine 03/08/16 Ways Operator Relationship Specialty Start Date End Date Johnathon Winter MD PCP - General Family Medicine 03/08/16 Ways Operator Relationship Specialty Start Date End Date Johnathon Winter MD PCP - General Family Medicine 03/08/16 Ways Operator Relationship Specialty Start Date End Date Johnathon Winter MD [address] [place] [id number] PCP - General 03/13/23 Ways Operator Relationship Specialty Start Date End Date Johnathon Winter MD [address] [place] [phone] PCP - General Family Medicine 12/12/22 Ways Operator Relationship Specialty Start Date End Date Johnathon Winter MD [address] [place] [id number] PCP - General 03/13/23 Ways Operator Relationship Specialty Start Date End Date Johnathon Winter MD [address] [place] [address] [phone] PCP - General 03/13/23 Ways Operator Relationship Specialty Start Date End Date Johnathon Winter MD [address] [place] [address] [id number] PCP - General 03/13/23 Team Status: Active Member Role Status Dates Johnathon Winter MD Primary Care Provide r, Attending Provider Active Start: May 10, 2023 Team Status: Inactive Member Role Status Dates Tee Peterson MD Attending Provider Active Start: May 23, 2023 End: May 23, 2023 Ways Operator Relationship Specialty Start Date End Date Johnathon Winter MD [address] [place] [address] [place] [phone] PCP - General 03/13/23 Team Status: Active Member Role Status Dates Sanjeev Lopez DO Attending Provider Active Start : October 25, 2023 Team Status: Active Member Role Status Dates Sanjeev Lopez DO Attending Provider Active Start : November 29, 2023 Team Status: Inactive Member Role Status Dates Sanjeev Lopez DO Attending Provider Active Start : December 06, 2023 End: December 06, 2023 Ways Operator Relationship Specialty Start Date End Date Johnathon Winter MD [address] [facility] [place] [phone] PCP - General Family Medicine 12/12/22 Ways Operator Relationship Specialty Start Date End Date Johnathon Winter MD [address] [facility] [place] [phone] PCP - General Family Medicine 12/12/22 Ways Operator Relationship Specialty [place] [address] [place] [id number] PCP - General 03/13/23 Ways Operator Relationship Specialty Start Date End Date Johnathon Winter MD [address] [facility] [place] [phone] PCP - General Family Medicine 12/12/22 Ways Operator Relationship Specialty Start Date End Date Johnathon Winter MD [address] [place] [phone] PCP - General Family Medicine 12/12/22 INFORMATION SOURCE (unrecogn ized section and content) DATE CREATED AUTHOR 07/17/2022 [facility] DATE CREATED AUTHOR AUTHOR'S ORGANIZ ATION 10/12/2022 [facility] DATE CREATED AUTHOR AUTHOR'S ORGANIZ ATION 06/12/2023 [facility] DATE CREATED AUTHOR AUTHOR'S ORGANIZ ATION 12/01/2023 [facility] DATE CREATED AUTHOR AUTHOR'S ORGANIZ ATION 12/14/2023 [facility] DATE CREATED AUTHOR AUTHOR'S ORGANIZ ATION 01/04/2024 [facility] DATE CREATED AUTHOR AUTHOR'S ORGANIZ ATION 01/26/2024 [facility] DATE CREATED AUTHOR AUTHOR'S ORGANIZ ATION 01/28/2024 [facility] DATE CREATED AUTHOR AUTHOR'S ORGANIZ ATION 02/28/2024 [facility] EPIC Goals (unrecognized section and [...] BE BASED ON THE PRIMARY CLINICAL RECORDS. [employer] provides no warranty or guarantee of the accuracy or completeness of information in this document.
== END 2024-03-13 13:18 | disposition home or self-care (01) ==
LOC: MAMMO 13:17
PROVIDERS: PCP Family Medicine; Visit Provider Obstetrics & Gynecology
DX: N64.4 Mastodynia (principal); Z80.0 Family history of malignant neoplasm of digestive organs
CPT/HCPCS: 76642; 77066; G0279

== ENCOUNTER 2024-04-01 11:44 | Outpatient (OUT) | payer BC, SELFPAY ==
--- OUTSIDE RECORDS SUMMARY | 2024-04-01 11:54 | XMS_ITS | CCD ---
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 DgNpHQPfCRV2qOveUZfyo3Pf ZXIt Y29 (more content not included)... [facility] Coding Summary HTMLBase 64 TcsbezveSTo7tLj+PGhlYWQ+ EQ7XRXQxA27tjFIboJ8jK0VA TElOSywgQVBQTElOSyIgbmFt DJ4ecNZmTUGf IC8+CW3gRCJuGtbzsRXhx2N6 hJG1P65utt9fOReqmMT1TWEw WnQowrwzx4gbeVt0PJaiEqvn OyBt NSNepG19KXQ9cX47Uv53uBOe eGUaa6iusCv0HwZpIIGdTOQ4 mZxyWJxrm8OzERPnE41naVWf c2U6 QXEckIbloZPkYtZbyGG5vH2f APkacroca6nsdlanBoj7xw48 mHThu4T5kNV5V6ZlrsI4BPLn bGQg AcssnAMCbW4lmvxpm1zluohg BjKtMRKzUCm8BPz8HKVqrRhd UwIaTP08DVY0MTNdooKuS7Zg LWFs qCikInC2u2U8Dj5SY2PBAisj B0NJUPKCTSdmcQE+JT38im09 M6ByLiirSmu1EBHmGGE7eSX5 aD0n QFDmCPgqn2P0aIK1S2MixvPz xs7np1juTUCgCZxvU99ifFWa j3C6KOShcDZ8EQDmmGgrBaFh aG93 Oyc+PYWqmKish0JhUmxtq4ll l4gsqRg5IkfuFSKkdxBabHvz TKI5w2FkYf2nBDGevXN6iCU1 aD0i GxWnPbP0FLzjT716ZbZcoVPw UwbwQ03gJ9ZvdRI+PHRyPjx0 AVQnoRtkPG3yK2DhMRKbxbbm bGVm sJihZZ4sJRSjwoszICFjvL8t QBWeW7i0CpMjOvL8UMceQ4De UYVnukhrQc93mB3fMvOhYgO2 MGlu C9UezuY5ZVNhnKUeFVegHBK8 X85br3R6VLZrZEBcEJG7rMR1 pE1ecNigivjagUHcpVddcnAv dGlj MCrnTBdzJ153CPMuyVbmRvHr ZGluZyBEYXRlOiAgMTAvMjUv MjAyNDwvdGQ+SVZrEPA3uDhb PSAn tCBmGDwwTe0tcBctcZbcQH2i YSJmyjqtZAKauH9xTNHpmXUx hIqbPU5oENJlvnetz922EgMv MHB0 QOPxbFMwI1KdqA3eEzUhCBWy DPVhZ9OgoATyCXnzG368QSwv ZlJ0JWPkghBcT7UpDBSsdLta OiB0 f3J6Gt2Fh7WspnyvX8MlsAUw LyUqLltdTDs6W3DcKnnqlGP+ SY02KNEvVR35EBw8MKI8dSmp PSdi OKRsB3PkhM5yVfHyXRMvCKWc Oyc+PHRhYmxlIHdpZHRoPScx GMWsLzOkzJwyKG5pQn9zOFEj LWNv xQawxSAzWuJfs5vkWBZtVJys LK5yxYecL6DenXN5LOXrl3o8 Ya02V99aM2VigXG+PGNvbCB3 aWR0 xC0fLnHlUoW7IXrkY610YyCd mWIuVuiut8vvb4owxWr2JbI9 VUFibmAhoUzuUKG1r0TfUh51 Y29s IHdpZHRoPSIxNSUiIHZhbGln vl3deH5wRy8+MHPxnGU2sDO5 nC4cXaMmSqX2FRphD290JbJg cCIv Odmko8six6cnfCk8ZkOcMDHt aiKxeWadYWO7h4PfCo91R3Uy vRnxc7UlZvq4xb96vDZdk0Q3 bGU9 U7UlBJYeceefkNMjxVpePV7a IRXaspxwXKTqyV5nWTSlK3e9 BpEiUmX7RZylR6HpgbI0HYId bGQg WBRmcNOEpM5syeqjr0opdvce HeImOBRoSMi3FCp3AKJdhFvt EqGkOZO9HsN7GLG8hBGkeH5z bGln iyilxY7aCbx+TTZ5uXMxdHKL RH7lDbkeuUY+ABYaHYJ2wTex DKveTCPjdF6fYEJhY7k5OcRn LjA1 ODegQ3FmrcV3PAVplGOsGKXy mITZrQ3wnesrf4rdhzytRoSy AAMzXOg4OOg0ZXLqcDfpHkNl ZWZ0 KmQ9VOP3rJLqsQ9dsOsccbup qD5tUvz+PywzmXtfAKU1QBn3 N7VpRyq2HMDoyBtgKD8imRCw ZGlu Zc5etLyodGupSA0xJBTvbonj l666ImYzt1wcMTLsnLGiSIfs EXE5D71iq6Z7LCCcRZEnANS7 dGV4 fF8gdDhpxufgcPMbfAklqzPx iPjxUNrzTLqiV455TCNjtLrv NxGiINa8S2GjLls7XOSrrQzu ZT0n dYPrVBkoSk3gqYjyqLjnAT1s NBBeydivp962DpSik1xlNFQf zQExFXrcACZ6I63yq0P3ZBTm MDAw PBU5yDN9kZ9eaZugrmbqnHZq wUglpqSqcZvzJEnaLSuiV488 URSqqCyrAnHaxEh9O3JiTct9 ZCBz hAmwMF0rmXEyPAjvFz6xfWrm jDabTE7cRQGdpjdtq148XnNl d6mcZFFyhIJyHKnvENJ5Q14v b3I6 DPQdKTNkVWN4eNE3lF8yhEcx bjogbGVmdDsgdmVydGljYWwt ZVvvW873PWBhqZzzXlMmsGcj bnQg KAboDXm4Y8MgSseorBH+PC90 PCKuTX12fVVqjHKbe1rbuRl7 IuVyVTInFQN5vTchVGtqk5Bq ZXIt K14knKHga2S8LSRtrUiskIKk TmDwpSJ7zW0rIBvykpwrx7vw kudzKuooh4kqwh32oF91G97n IHdp IVJdKHBfFELfXCXkvOrqlt4p aZ0aNr7+KHMtqLG4cJX4wV4c AJPiRdJ6NMfeH381LyZxmIWj Pjxj x8nol2dljMc9OxW3KAJmfdVz rHlsEMR4n5FpEz89R04dPMha HLOvQEKcGGNmGMJyuAegoz3d dG9w Ii8+ZUZktTK9nKM7wP8fYyOa ZuZ6PMtqD024BlCczXYcWhav P17cG5EskDH+QACxDch0INTr dHls QB2opYThLPlsLu6kAIK1HvHy KbZzOShbB9KdZOMguazyerwc dJQ9JANuZJMecK29Yu7lhYnq MTBw tGCWbP9ydtggy6llbagzUjJg RNCqRDz2FQd8QBXljMfkPhPi QHB5BkC1TJZ7jNVvrQ7wgQbd bjog sK2uJ2JiMIVdrwovAk78sA1n GeVfMiE7WZcrUas+D29VP9lG LCBBTUFOREEgREFXTjwvdGQ+ PHRk WEU3rQjoDBbrGTMjiU7qKVYg X2j6QrAxBmP8JAcgZ3XaSVYa bzxvVn04iB1qBfBlCnW9WOuz O2Zv scB4NTGrrNQsINtpCAO4R99w y7J8VKCeQGJsNPP9rOU3xB8e bGlnbjogbGVmdDsgdmVydGlj YWwt NPjdE470JIDltKtiNmA3QyGe QfS0FOK3I9CzQnd4ARMusCys JX4jnGGvEOepCb9kvOinuDfw MC4w GVPvlhxmSORsdQ6qILRzmPOl uLomSE5kLFCrhuorf760PgTl QVA2ZTOgfUHhJ1MevF1xAqWe MDAw LJCoA9EoyETtZFxyR256XEjf WmG3CVHsoaTdI7QuYUNvvSkq ZpX5n0U4La51MQERITUdkzeh dGQ+ PHWuEDR0pAfvFCggDUOcrM6s YHAoH0a1IxMnUhI6ZUzlT4Wh ZWEwfcadQu02gR8pDhHkUqS9 MGlu X0KtzkY8ITZtzLUyXNnbNJS5 U03xc1A6GNXdQETqSPZ8tNX4 dD3sjTnupncwlLQjsHnzbbLc dGlj GFuuLCilF561CCRbqIzqMaJJ TUFMRTwvdGQ+YQMhALL7cFfi SPleMPNfnD4zPZOhI4v2HcYq LjA1 YTqxA1ApLXJqmuqjNq77aL0h CsFoLgS4LTcjW3RmdfI4JFPb tIReAKvbQKD5S34zo0Z3TRIh MDAw BMS2rSC6yL7qeYdqrijzdFOk oVyhkkYpzSquATggOObbD831 EMKzrOitDmNkYFOzAH7qoQpi dGQ+ PP71lz95O7AeWxjwTlr5YBFj BTN3kII6vW9fAUSaFUupf5O7 kZF2A4DpjvVjjh9zq3goDMMe ZTog Z17hqZBrd8U5HIDwwXH4YGIh gPurGqWuoD13Uyg+PGNvbGdy u8YuWxgjo3ijk6lqqBf8YlZp JSIg orMenSauUBH2m6QjPm74T69x IHdpZHRoPSIzMCUiIHZhbGln up4rtM5pOs5+UJCyhWG2aAN1 aD0i EkTmAgE4CBllM348LxUvdUIn Smaeh0oqo3fdlCo1MmIwWDBi gyVtaKmbVPW3h9YtHy17P8Fo bGdy e5LqTnj6cz80wPHbv3Y2tBY0 F3WdTMYrjygcuAQfsSaaFV9j YCYomxcrQQJptS0iXOCgG3i6 OiAw UrD0VGloM3VyplM9VRYbqJHt QGRebJUPjB7donpzu5pwokvi PzCxHKFqQKa3NRh1YGZmuWta OiBs DRS4MxQ7KQW1sIAanA1vaNxz jiblvM3yItl+CKn6z9swgJKr NG1tcZF6EJ10VS70sRRka2K2 bGU9 Z3MbSXRbysrvwklbiSK0KSJr IXBsdB87Dm6idQbbUi8xBYBi HKT6SDBsbBJbJ1QkuO3hXoSu MDAw YXReR9NoqDVfVAzvK986QQzv LfV4JLVpmyOwO4TrKXRndJex HeG5t1S6Xn7YDL80JB96RC73 dGQg y9T6kMI8L9VaBOMoaxrajbmb mCH3LHGfYVPqlG66Oe1onSwa Oq2sXYRpUVY5ASPvoTWcQ3Ld bG9y CcHrBUDvUIDoN7HxkSUyNHqv J839FFcxIeP0SAJseiTiP6Il KXJfzHlcKtX7o9N8Py6ICr85 PC90 HH35yITek5R8gLI5M4SdWOAm fbczfsgqgOM7PGZgQGUhaI29 Oc1tnHsgGc3cTKFkYQD1HEJz bWVz W8CzbC0sKnSxGGTkEYBcS6We jZAnZNzqJ727NBwrQxZ5VJUb igUxJ4ThLKUvuGabRaF4y1C2 Jz5Q OHotcuv3H5FpFiatnNJ+PC90 ZTWeAT41jHRvnLMsb6ldsHa0 EaCrSTBgAHX6mSxiCJbrm5Zd ZXIt Y29 (more content not included)... Normal [facility] Consent Formson 01-15-2024 Consent Forms [id number]#[id number] TIFF Normal [facility] .Auto Diff 1on 01-14-2024 Auto [place] % 6 % Normal 04-14 [facility] Comment on above: Performed By: #### 1 [id number], [id number], 7184109036, 8181038, 34631462, 7292980402, 5282086 ####[facility] (DEFAULT)[address] [place] [address] Baso Abs# 0.0 x10 Normal 0.0-0.2 [facility] Comment on above: Performed By: #### 1 [id number], [id number], 8728482447, 8641618, 43397210, 8197755909, 3946321 ####[facility] (DEFAULT)[address] [place] [address] Basophils/100 WBC (Bld) 0.7 % Normal 0.2-2.0 [facility] Comment on above: Performed By: #### 1 [id number], 5695512091, 8397493859, 2460168, 45666448, 7692644190, 6857934 ####[facility] (DEFAULT)[address] [place] [address] Eos Abs# 0.1 x10 Normal 0.0-0.4 [facility] Comment on above: Performed By: #### 1 [id number], 0683056050, 1099267645, 9071845, 01429004, 5475499430, 0990111 ####[facility] (DEFAULT)[address] [place] [address] 94037 Eosinophils/100 WBC (Bld) 1.3 % Normal 0.9-4.0 [facility] Comment on above: Performed By: #### 1 [id number], 1223353069, 9048523458, 1426961, 04596152, 7409588772, 8949146 ####[facility] (DEFAULT)[address] [place] [address] 08613 Lymph Abs# 1.6 x10 Normal 1.3-2.9 [facility] Comment on above: Performed By: #### 1 [id number], 0187869929, 8649034802, 4611633, 94307166, 2074330926, 8570400 ####[facility] (DEFAULT)[address] [place] [address] 28142 Lymphocytes/100 WBC (Bld) 25 % Normal 14-48 [facility] Comment on above: Performed By: #### 1 [id number], 2431842063, 5011930519, 2866710, 31137267, 1731554363, 0935237 ####[facility] (DEFAULT)[address] [place] [address]151 [place] Abs# 0.4 x10 Normal 0.0-0.8 [facility] Comment on above: Performed By: #### 1 [id number], 4814082109, 3513154101, 9570128, 59496760, 7913389999, 9668718 ####[facility] (DEFAULT)[address] [place] [address] 50237 Neut Abs# 4.2 x10 Normal 1.5-9.2 [facility] Comment on above: Performed By: #### 1 [id number], 3588250286, 1220393796, 1815407, 43205775, 3757915351, 1272349 ####[facility] (DEFAULT)[address] [place] [address] 14009 Neutrophils/100 WBC (Bld) 67 % Normal 44-88 [facility] Comment on above: Performed By: #### 1 [id number], 2775927149, 1132261330, 4589796, 68520146, 6452219789, 5263683 ####[facility] (DEFAULT)[address] [place] [address] CBC w/ Auto Diffon Erythrocyte distribution width (RBC) [Ratio] 14.5 % Normal 11.5-15.0 [facility] Comment on above: Performed By: #### 1 [id number], 3723693188, 9446057757, 4098734, 64222947, 4086454290, 6159846 ####[facility] (DEFAULT)[address] [place] [address] Hematocrit (Bld) [Volume fraction] 37.9 % Normal 33.7-40.4 [facility] Comment on above: Performed By: #### 1 [id number], 7580259341, 4570689394, 7669325, 09114196, 3133066284, 7921204 ####[facility] (DEFAULT)[address] [place] [address] Hemoglobin (Bld) [Mass/Vol] 12.3 g/dL Normal 11.3-15.9 [facility] Comment on above: Performed By: #### 1 [id number], 8712245507, 3699807041, 3460698, 90805309, 8877621584, 2120845 ####[facility] (DEFAULT)[address] [place] [address] Man Diff? Auto Invalid Interpretation Code [facility] Comment on above: Performed By: #### 1 [id number], 4182913016, 8157937235, 9721393, 06160882, 2388024654, 1571424 ####[facility] (DEFAULT)[address] [place] [address] MCH (RBC) [Entitic mass] 27 pg Normal 24-34 [facility] Comment on above: Performed By: #### 1 [id number], 7925004664, 9019283801, 8561214, 19839928, 9279820020, 7790671 ####[facility] (DEFAULT)[address] [place] [address] 97995 MCHC (RBC) [Mass/Vol] 33 g/dL Normal 26-37 [facility] Comment on above: Performed By: #### 1 [id number], 4623930687, 8306792851, 4915910, 99298421, 3997150542, 4821689 ####[facility] (DEFAULT)[address] [place] [address] 55164 MCV (RBC) [Entitic vol] 84 fL Normal 81-100 [facility] Comment on above: Performed By: #### 1 [id number], 9044585249, 2953039173, 1459690, 08812008, 7993492118, 6212344 ####[facility] (DEFAULT)[address] [place] [address] 29454 Platelet 270 x10 Normal 138-427 [facility] Comment on above: Performed By: #### 1 [id number], 5691131957, 6391761073, 1935843, 16615982, 8748060959, 3443457 ####[facility] (DEFAULT)[address] [place] [address] 84139 Platelet mean volume (Bld) [Entitic vol] 7.4 fL Normal 6.3-10.2 [facility] Comment on above: Performed By: #### 1 [id number], 1793374943, 5480327492, 3497280, 42863030, 5118397987, 8511153 ####[facility] (DEFAULT)[address] [place] [address] 74449 RBC 4.53 x10 Normal 3.70-5.30 [facility] Comment on above: Performed By: #### 1 812291506, 5293700163, 5269515555, 1927948, 74585329, 1875547307, 9378939 ####[facility] (DEFAULT)[address] [place] [address] 33444 WBC 6.3 x10 Normal 3.5-10.5 [facility] Comment on above: Performed By: #### 1 [id number], 3210320255, 3782342927, 3326828, 99011015, 6345211528, 1370803 ####[facility] (DEFAULT)[address] [place] [address] CMP Standardon 01-14-2024 Breakpoint Chem Normal [facility] Comment on above: Performed By: #### 1 [id number], 8528659269, 2193584540, 3987595, 23638863, 8156371481, 8846034 ####[facility] (DEFAULT)[address] [place] [address] eGFR Non AA >60 Invalid Interpretation Code [facility] Comment on above: Performed By: #### 1 [id number], 0475441396, 0729914495, 4330744, 94710592, 7885849053, 4756072 ####[facility] (DEFAULT)[address] [place] [address] eGFR AA >60 Invalid Interpretation Code [facility] Comment on above: Performed By: #### 1 [id number], 5338343001, 2733813071, 3632402, 56888107, 3869126306, 0043597 ####[facility] (DEFAULT)[address] [place] [address] Albumin [Mass/Vol] 3.6 g/dL Normal 3.5-5.0 [facility] Comment on above: Performed By: #### 1 [id number], 3326979650, 5581929529, 7277466, 38435333, 3164088211, 9945937 ####[facility] (DEFAULT)[address] [place] [address] Albumin/Globulin [Mass ratio] 1.2 {ratio} Low 1.4-2.6 [facility] Comment on above: Performed By: #### 1 [id number], 2207643352, 1862566604, 5566769, 62867128, 9272457508, 5963972 ####[facility] (DEFAULT)[address] [place] [address] Alk Phos 73 IU/L Normal 32-91 [facility] Comment on above: Performed By: #### 1 [id number], 9622218835, 6637877776, 9920447, 71585653, 8272268694, 7655803 ####[facility] (DEFAULT)[address] [place] [address] 05838 ALT [Catalytic activity/Vol] 16.0 U/L Normal 14.0-54.0 [facility] Comment on above: Performed By: #### 1 355248577, 6024830974, 0202777508, 0277854, 58217220, 2656260106, 1212304 ####[facility] (DEFAULT)[address] [place] [address] Anion gap [Moles/Vol] 6.9 mmol/L Normal 5.0-19.0 [facility] Comment on above: Performed By: #### 1 [id number], 4112967738, 4960229808, 4695754, 24828882, 2213223765, 7725811 ####[facility] (DEFAULT)[address] [place] [address] 19550 AST [Catalytic activity/Vol] 19 U/L Normal 15-41 [facility] Comment on above: Performed By: #### 1 [id number], 1295100244, 1028545478, 0997852, 64860154, 3045999836, 1377843 ####[facility] (DEFAULT)[address] [place] [address] 10003 Bili Total 0.2 mg/dL Low 0.3-1.2 [facility] Comment on above: Performed By: #### 1 573952235, 1879784836, 2565127628, 8188210, 21836177, 1692603581, 4914146 ####[facility] (DEFAULT)[address] [place] [address] 49386 Calcium [Mass/Vol] 8.4 mg/dL Low 8.9-10.3 [facility] Comment on above: Performed By: #### 1 251798938, 6630409816, 4376126412, 3692955, 18651490, 3782069361, 7188324 ####[facility] (DEFAULT)[address] [place] [address] 35516 Chloride [Moles/Vol] 108 mmol/L Normal 101-111 [facility] Comment on above: Performed By: #### 1 [id number], 3335780978, 7823756139, 0838788, 23481283, 5677892423, 6857759 ####[facility] (DEFAULT)[address] [place] [address] 76194 CO2 [Moles/Vol] 24 mmol/L Normal 21-32 [facility] Comment on above: Performed By: #### 1 524604111, 3766417532, 4272192148, 0822248, 49654360, 4800830326, 9362583 ####[facility] (DEFAULT)[address] [place] [address] 89859 Creatinine [Mass/Vol] 0.78 mg/dL Normal 0.60-1.30 [facility] Comment on above: Performed By: #### 1 361981129, 8257346797, 8897232614, 5719870, 87975319, 3801671044, 9515654 ####[facility] (DEFAULT)[address] [place] [address] 65949 Globulin (S) [Mass/Vol] 2.9 g/dL Normal 1.5-4.3 [facility] Comment on above: Performed By: #### 1 [id number], 5787083845, 4028178200, 7909097, 35548098, 7764420410, 2657133 ####[facility] (DEFAULT)[address] [place] [address] 48882 Glucose [Mass/Vol] 88.0 mg/dL Normal 74.0-118.0 [facility] Comment on above: Performed By: #### 1 [id number], 3838184358, 3117825949, 8935099, 82390092, 1231773080, 7632593 ####[facility] (DEFAULT)[address] [place] [address] 13003 Osmolality 270 mOsm/L Invalid Interpretation Code [facility] Comment on above: Performed By: #### 1 [id number], 4090332017, 8846161120, 6272504, 04842385, 2575030412, 6995626 ####[facility] (DEFAULT)[address] [place] [address] 78385 Potassium [Moles/Vol] 3.9 mmol/L Normal 3.6-5.1 [facility] Comment on above: Performed By: #### 1 [id number], 1044176944, 0075673450, 3982845, 76374324, 4418902471, 4195447 ####[facility] (DEFAULT)[address] [place] [address] 88542 Protein [Mass/Vol] 6.5 g/dL Normal 6.5-8.1 [facility] Comment on above: Performed By: #### 1 412647811, 7467565014, 4163213018, 5967824, 52849499, 2138411721, 3991305 ####[facility] (DEFAULT)[address] [place] [address] 07310 Sodium [Moles/Vol] 135.0 mmol/L Low 136.0-144 . 0 [facility] Comment on above: Performed By: #### 1 [id number], 5521853054, 0877403941, 4597523, 41228623, [id number], [id number] ####[facility] (DEFAULT)[address] [place] [address]32 Urea nitrogen [Mass/Vol] 15 mg/dL Normal 8-26 [facility] Comment on above: Performed By: #### 1 [id number], [id number], [id number], [id number], [id number] ####[facility] (DEFAULT)[address] [place] [address] 99959 Urea nitrogen/Creatinine [Mass ratio] 19.2 mg/mg High 4.6-16.2 [facility] Comment on above: Performed By: #### 1 [id number], [id number], [id number], [id number], [id number], [id number], [id number] ####[facility] (DEFAULT)[address] [place] [address] [address] angiography head [...] Mathis DO 01/14/24 8:11 am Technologist: FREEMAN Goldstein [facility] CT Head or Brain w/o Contras ton [...] Yung Wright MD 01/14/24 6:53 am Technologist: KALYAN Goldstein [facility] ED Clinical Summaryon 2023 ED Clinical Summary [facility] - Emergency Department [address] [place] [id number] ED Clinical Summary PERSON INFORMATION Name: KARUNA DUMONT Age: 43 Years Sex: FEMALE : 1980 MRN: Acct#: Visit Reason: Headache; HEADACHE Arrival: 01/14/2024 04:59:27 Discharge: 01/14/2024 09:46:00 LOS: 000 04:47 Check In: 01/14/2024 04:59:27 Checkout:01/14/2024 09:46:00 [facility] [address] PCP: Johnathon Winter MD PROVIDER INFORMATION Provider Role Assigned Unassigned Dot Cantu RN ED Nurse 01/14/2024 05:00:50 Santy Mckeon MD ED Provider 01/14/2024 05:02:54 Maribel Yousif RN ED Nurse 01/14/2024 07:21:53 Joaquim Gary MD ED [...] evaluation of headache. 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 Stated headache is [...] Past Substance Use (more content not included)... [facility] ED Note - Physicianon 2023 ED Note [...] evaluation of headache. 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 Stated headache is worse, not typical. Had been seen by Dr. Stalter. Workup has been done. CT brain without [...] Plan Diagnosis Sudden onset of severe headache (OHI06-CX R51.9, Discharge, Medical) Headache, unspecified (LPH01-DI R51.9, Medical) Plan Condition: Improved, Stable. Disposition: Disch (more content not included)... Normal [facility] ED Patient Summaryon 024 ED Patient Summary [facility] - Emergency Department [address] [place] [address] PATIENT DISCHARGE INSTRUCTIONS Patient Information Name: KARUNA DUMONT Age: 43 Years Date of : 1980 Reason For Visit: Headache; HEADACHE Arrival Time: 01/14/2024 04:59:27 Primary Care Physician: Johnathon Winter MD Attending Physician: Santy Mckeon MD Comment: Visit Diagnosis: Diagnoses This Visit Headache (21922284) Headache, unspecified (R51.9) Sudden onset of severe headache (R51.9) The Pharmacy at [facility] is open Monday through Monday from [...] alcohol and/or drug addiction problems; contact the [facility] 24/10 Crisis Hotline -Text 5IZHX to 469175. If you received any narcotics, sedation, or [...] any legal documents With: Address: When: Johnathon Winter [address] [place] [address] Business (1) Within 2 to 4 days [...] and treatment you received today in the [facility] Emergency Department were for an urgent problem and are not intended as complete care. It is important for you to follow up with a doctor, nurse practitioner, or physician?s preschool assistant director for ongoing care. If your symptoms become [...] so we can reach you if necessary. [facility] Emergency Department has provided you with a complete list of medications post discharge. Please inform your trimmer press clippings/provider of your visit and for further instruction [...] amine (amphetamine-dextroa (more content not included)... Normal [facility] Extra [facility] 01-14-2024 Tube Collected Yes Invalid Interpretation Code [facility] Comment on above: Performed By: #### 1 [id number], [id number], [id number], [id number] ####[facility] (DEFAULT)[address] [place] [address] Sed Rateon 01-14-2024 Sed Rate 8 mm/hr Normal 0-20 [facility] Comment on above: Performed By: #### 1 [id number], [id number], [id number], [id number] ####[facility] (DEFAULT)[address] [place] [address] VITAMIN B12on 12-29-2023 Cobalamin (Vitamin B12) [Mass/Vol] 303 pg/mL 232 - 1245 pg/mL [facility] Comment on above: Performed at: [address] [id number] [employer] Officer: Theron Roblero PhD, Phone: [phone] [facility] ALL CBC WITH AUTO DIFFon BASOPHILS ABSOLUTE AUTO 0.1 N [facility] Basophils/100 WBC (Bld) 0.8 % 0.2 - 2.0 % [facility] Eosinophils/100 WBC (Bld) 1.5 % 0.9 - 7.0 % [facility] Erythrocyte distribution width (RBC) [Ratio] 13.7 % 11.0 - 15.0 % [facility] Hematocrit (Bld) [Volume fraction] 41.5 % 36.0 - 48.0 % [facility] Hemoglobin (Bld) [Mass/Vol] 12.9 g/dL 12.0 - 16.0 g/dL [facility] IMMATURE GRANULOCYTES ABS AUTO 0.02 [facility] Immature granulocytes/100 WBC (Bld) 0.3 % 0.0 - 0.5 % [facility] Interpretation and review of laboratory results Abnormal [facility] LYMPHOCYTES ABSOLUTE AUTO 2.5 [facility] Lymphocytes/100 WBC (Bld) 34.0 % 20.5 - 60.0 % [facility] MCH (RBC) [Entitic mass] 27.4 pg 26.7 - 34.0 pg [facility] MCHC (RBC) [Mass/Vol] 31.1 g/dL 29.9 - 35.2 g/dL [facility] MCV (RBC) [Entitic vol] 88.3 fL 81.0 - 99.0 fL [facility] MONOCYTES ABSOLUTE AUTO 0.4 N [facility] Monocytes/100 WBC (Bld) 5.9 % 1.7 - 12.0 % [facility] NEUTROPHILS ABSOLUTE AUTO 4.2 [facility] Neutrophils/100 WBC (Bld) 57.5 % 43.0 - 75.0 % [facility] Platelet mean volume (Bld) [Entitic vol] 8.7 fL Low 9.5 - 13.5 fL [facility] EO # 0.1 [facility] TB PLT 279 [facility] RBC 4.70 [facility] WBC 7.3 [facility] MLR HEMOGLOBIN A1Con 024 Glucose [Mass/Vol] 97 mg/dL [facility] HbA1c (Bld) [Mass fraction] 5.0 % 4.5 - 6.2 % [facility] Comment on above: ADA RECOMMENDED LIMI T 4.0 - 6.0 ADA THERAPEUTIC TARGET < 7.0 ACTION SUGGESTED > 7.0 [facility] HCG ( test) Ql (U)o n 12-06-2023 Preg Test, Ur Negative [facility] Jose 12-06-2023 L Specimen: [id number] Received: 12/07/23 Status: NATHAN Guzmán Num: [id number] Spec Type: Surgical Subm Dr: Sanjeev Lopez Tissues: A Endometrium - Biopsy (EMBX) Procedures: HE/2, Gross/Micro L4 Age/ Patient Sex Location Account Attending Physician Karuna Dumont 43/F KATINA [id number] Sanjeev Lopez SPEC NUM: [id number] RECD: 12/07/23 [facility] NUM: [id number] GENEVA: 12/06/23- SUBM DR: Sanjeev Lopez ENTERED: 12/07/[address] [facility] DR: Bert,Lab SPEC TYPE: Surgical DEPT: ROLDAN THOMPSON ENTERED BY: [id number] RECV BY: [id number] ORDERED: HE/2, Gross/Micro L4 ORDERED: HE/2, Gross/Micro [...] are performed supporting the above interpretation Specimen: [id number] Received: 12/07/23 Status: NATHAN Guzmán Num: [id number] Spec Type: Surgical Subm Dr: Sanjeev Lopez Tissues: A Endometrium - Biopsy (EMBX) Procedures: HE/Melissa, Gross/Micro L4 Patient: Karuna Dumont [id number] (Continued) Specimen: [id number] Received: 12/07/23 (Continued) Signed (signature on file) Frida Kirby MD 12/12/23 2158 Specimen: [id number] Received: 12/07/23 Status: NATHAN Guzmán Num: [id number] Spec Type: Surgical Subm Dr: Sanjeev Lopez Tissues: A Endometrium - Biopsy (EMBX) Procedures: HE/2, Gross/Micro L4 Patient: Karuna Dumont [id number] (Continued) Specimen: [id number] Received: 12/07/23 (Continued) CPT Codes 57262 Specimen: [id number] Received: 12/07/23 Status: NATHAN Guzmán Num: [id number] Spec Type: Surgical Subm Dr: Sanjeev Lopez Tissues: A Endometrium - Biopsy (EMBX) Procedures: HE/2, Gross/Micro L4 Patient: JuliaKaruna Radha [id number] (Continued) Signed (signature on file) Frida Kirby MD 12/12/232157 Normal [facility] ALL DHEA SULFATEon DHEA-SULFATE 40.8 ug/dL Abnormal 57.3 - 279.2 ug/dL [facility] METRO SEX BINDING HORMONE (S HBG), TESTOSTERONE, FREE AND BIOAVAILABLEon 12-02-2023 SEX HORM BINDING GLOB, SERUM 60.9 nmol/L 24.6 - 122.0 nmol/L [facility] Comment on above: Performed at: [address] [id number] [employer] Officer: Theron Roblero PhD, Phone: [phone] No Panel Informationon 12-01 Interpretation and review of laboratory results Abnormal [facility] SRMCOH TESTOSTERONE FREE/TOT EQUILIBon 12-02-2023 FREE TESTOSTERONE(DIRECT) <0.2 0.0 - 4.2 pg/mL [facility] Comment on above: Performed at: [employer] [id number] [place], [place] [id number] [employer] Officer: Theron Roblero PhD, Phone: [phone] Performed at: [facility] [employer] [id number] [employer] Officer: Katelynn Macdonald MD, Phone: [phone] Testosterone [Mass/Vol] ng/dL Abnormal 8 - 60 ng/dL [facility] Free testosterone measuremen t by LC-MS/MSon 11-29-2023 Testosterone Free [Mass/Vol] <0.2 pg/mL 0.0-4.2 [facility] Comment on above: Performed at: [employer] [address] [id number] Director: Theron Roblero PhD, Phone: [phone] at: [facility] [employer] [id number] Director: Katelynn Macdonald MD, Phone: [phone] No Panel Informationon 11-28 Dehydroepiandrosterone Sulfate 40.8 ug/dL Abnormal 57.3-279.2 [facility] Sex Hormone Binding Globulin 60.9 nmol/L 24.6-122.0 [facility] Comment on above: Performed at: [employer] [address] [id number] Director: Theron Roblero PhD, Phone: [phone] Testosterone Level <3 ng/dL Abnormal 8-60 [facility] Activated partial thrombopla stin time (aPTT) in platelet poor plasma by coagulation aon 10-25-2023 aPTT Coag (PPP) [Time] 29.5 s 22.3-36.2 [facility] Basophils Auto (Bld) [#/Vol] on 10-25-2023 Basophils (Bld) [#/Vol] 0.1 10 3/uL 0.0-0.1 [facility] Basophils/100 WBC Auto (Bld) on 07-24-2024 Basophils/100 WBC (Bld) 1.1 % 0.2-2.0 [facility] Eosinophils/100 WBC Auto (Bl d)on 10-25-2023 Eosinophils/100 WBC (Bld) 2.2 % 0.9-7.0 [facility] Erythrocyte distribution wid th Auto (RBC) [Ratio]on 10-25-2023 Erythrocyte distribution width (RBC) [Ratio] 14.5 % 11.0-15.0 [facility] Glucose mean value [Mass/vol ume] in Blood Estimated from glycated hemoglobinon 10-25-2023 Average glucose Estimated from glycated hemoglobin (Bld) [Mass/Vol] 88 mg/dL [facility] Hematocrit Auto (Bld) [Volum e fraction]on 10-25-2023 Hematocrit (Bld) [Volume fraction] 39.8 % 36.0-48.0 [facility] Hemoglobin [Mass/volume] in Bloodon 10-25-2023 Hemoglobin (Bld) [Mass/Vol] 12.6 g/dL 12.0-16.0 [facility] INR in Platelet poor plasma by Coagulation assayon 10-25-2023 INR Coag (PPP) [Relative time] 0.99 {INR} [facility] Comment on above: DESIRED INR:2.0-3.0 CONDITIONS NOT LISTED BELOW2.5-3.5 FOR PROSTHETIC HEART VALVE REPLACEMENT2.5-3.5 RECURRENT THROMBOSIS Laboratory - Chemistry and C hemistry - challengeon 10-25-2023 Free T4 [Mass/Vol] 1.24 ng/dL 0.76-1.46 [facility] TSH Qn 1.497 m[IU]/L 0.358-3.74 0 [facility] Laboratory - Hematology and Cell countson 10-25-2023 HbA1c (Bld) [Mass fraction] 4.7 % 4.5-6.2 [facility] Comment on above: ADA RECOMMENDED LIMI T 4.0 - 6.0ADA THERAPEUTIC TARGET < 7.0ACTION SUGGESTED> 7.0 Immature granulocytes/100 WBC (Bld) 0.2 % 0.0-0.5 [facility] Leukocytes [#/volume] correc mini for nucleated erythrocytes in Blood by Automated counon 10-25-2023 WBC corrected for nucl RBC Auto (Bld) [#/Vol] 5.5 10 3/uL 4.0-11.0 [facility] Lymphocytes Auto (Bld) [#/Vo l]on 10-25-2023 Lymphocytes (Bld) [#/Vol] 1.8 10 3/uL 1.2-3.8 [facility] Lymphocytes/100 WBC Auto (Bl d)on 10-25-2023 Lymphocytes/100 WBC (Bld) 33.3 % 20.5-60.0 [facility] MCH Auto (RBC) [Entitic mass ]on 10-25-2023 MCH (RBC) [Entitic mass] 27.9 pg 26.7-34.0 [facility] MCHC Auto (RBC) [Mass/Vol]on 10-25-2023 MCHC (RBC) [Mass/Vol] 31.7 g/dL 29.9-35.2 [facility] MCV Auto (RBC) [Entitic vol] on 10-25-2023 MCV (RBC) [Entitic vol] 88.1 fL 81.0-99.0 F [facility] Monocytes Auto (Bld) [#/Vol] on 10-25-2023 Monocytes (Bld) [#/Vol] 0.3 10 3/uL 0.3-0.8 [facility] Monocytes/100 WBC Auto (Bld) on 10-25-2023 Monocytes/100 WBC (Bld) 5.4 % 1.7-12.0 F [facility] Neutrophils Auto (Bld) [#/Vo l]on 10-25-2023 Neutrophils (Bld) [#/Vol] 3.2 10 3/uL 1.4-6.5 [facility] Neutrophils/100 WBC Auto (Bl d)on 10-25-2023 Neutrophils/100 WBC (Bld) 57.8 % 43.0-75.0 [facility] No Panel Informationon 10-24 Eosinophils # (Auto) 0.1 10 3/uL 0.0-0.7 [facility] Human Chorionic Gonadotropin, Quant <1 mIU/mL [facility] Comment on above: 5-50 0.2-1 GDXZ86-27 0 1-2 MZUUB152-5,000 2-3 TCLEP348-85,000 3-4 WEEKS1,000-50,000 4-5 WEEKS10,000-100,000 5-6 WEEKS15,000-200,000 6-8 WEEKS10,000-100,000 2-3 MONTHS Immature Granulocyte # (Auto) 0.01 10 3/uL 0.00-0.03 [facility] Platelet mean volume Auto (B ld) [Entitic vol]on 10-25-2023 Platelet mean volume (Bld) [Entitic vol] 9.7 fL 9.5-13.5 [facility] Platelets Auto (Bld) [#/Vol] on 10-25-2023 Platelets (Bld) [#/Vol] 300 10 3/uL 150-450 [facility] Prothrombin time (PT)on 10-02 PT Coag (PPP) [Time] 10.5 s 9.0-11.6 [facility] RBC Auto (Bld) [#/Vol]on RBC (Bld) [#/Vol] 4.52 10 6/uL 4.20-5.40 [facility] Coding Summaryon 09-01-2023 Coding Summary HTMLBase 64 NuuycxyaUGm9nHg+PGhlYWQ+ KE9MCLPhH21teRQoqK9xC9LO TElOSywgQVBQTElOSyIgbmFt DP6huGOyBMUc IC8+KZ6hCMJfKbicbOCrm2A5 rAR3Q82vvd9vQZtokQL4RTNn PlLomjvhn9qviYr6CUqyShrj OyBt DRVpwX67VWP4tB53Cw81wHYk rOQys9cgeGk4BrSrLEAmPEA8 jJoaPZmnp0BbKNJbS47oxFAo c2U6 MDThcRnelQPlQmLhdXT7cJ6q AGerdtlgx9tvjtgiUij9sk36 xOEnn2M0jUU0V3CtbkE5OLVd bGQg JosbkYITwU2achlnl9gukjne YmHzSRSgLDs5BMr7JYNvkQir NrVrUZ45YWN4EIJxdfHmT5Mv LWFs hDghCmA5h9V8Pp4GE1FDOrly C1AZUZLCNTyrkCT+GF33ty74 J1QnPtwqStw4COIbTLY5tJS9 aD0n YJKqTCdim6T9mSX9T5YuxdTi mq7jw4tfKDOuEEcnN52zzSOp q6L7PFAyiHD1UKMazYieJiAa aG93 Oyc+PBVhtKufd0WxSfftn9vz g4vijQn2VczzRDOipzDqtLvs ZOQ1a9GuFx8tVTXwmCX0vLO1 aD0i HcHjYyK4ZKxfW944LnQgwVUi FpxpK58kS5FguND+PHRyPjx0 CKEaaFvoYN7tE0CcECFkgwwx bGVm iZqkAQ0pQQNxnyosAGHdoY9u ACOtZ8z1AxPjAsX0MGbaY1Ji BFXxojimTu26uM1tHrWbHmO9 MGlu N7UzfmC1AISraKXvUMyhRAZ4 C09mn1V7PAFbSKZaVHF8iZB5 sQ3zvMerefvqzHMcxFplgnQo dGlj FVtgDTebY823ZCYyhUfoSgSw ZGluZyBEYXRlOiAgMDUvMzEv MjAyNDwvdGQ+IJEzZFY8nEyw PSAn sBUaODzyWk9mnYfrgNnrLT5c KAFcscxqRSQewM1iHZLjoAYr jYlkKG0mSITvswhmz424XbWq MHB0 VRXtxYPmX2LivR6dPmRaMBHt WHNcL9FfnSQzEPkkC525BLah XuG0XBNmpuQaF1OvRPEdkFsp OiB0 d3F2At6Hc3DpgxupU9OnjBCe HhIoJeqgOMq5T4VkVofqtKS+ XS64CZMoLG43IIr6YKJ6xPcj PSdi IPMmT8WouB9hYkXrHLFgUJFu Oyc+PHRhYmxlIHdpZHRoPScx FNZtOkGedUbeDN4aWm5zHUIz LWNv qFiwhJTcPyJay1pxRZKpPUmq UV5mrNgrB1ZodEB9PJBpr6w1 Fr95I26vM0DlpPQ+PGNvbCB3 aWR0 tU2zAeHtXcV9EIcaQ690LnMi uOBuWbcid1ovj5aglPj9LcE1 QHKzzzYtrCozLII5c0HfSq65 Y29s IHdpZHRoPSIxNSUiIHZhbGln vh8azQ0kOx6+XKMswMN6uQR9 kK3aKoHgRgA4LUfrS711PkVh cCIv Pgmdv2qja2ndfZf7KnDhOKOv jgLbmXfsOYT1j1FgIk94V3Vf nPfzt2SjMai9ha92iIOsm5C8 bGU9 V6AeEXZyewwdrNPmuMfsAZ4k IUOryxweJYLtcS9wCYJoU7r4 DhNgJgC9WEaqT5HijxR2CKIh bGQg GMFthYYVzF8buwxjw4bjscaq ZlOeEAUpXTt8NIf8TPIteBoz IhAwXXE3OsZ2TXJ9oGMlpH8b bGln qgnqaE1dHkh+EKU4rCBqwRTC DK2vEoybmTX+VYBvCJL0wEmj RMqyICUuwT8jZTKbM5f7EsXm LjA1 JVxuE5LiirA9OQUluZPeEQQm yGZUlY4lyumcp8ztdxujJcIe KIYhATv3UBh3JDQzpHypSoOr ZWZ0 YmJ1LWK4iUXlbY8ndAcipgzz xY7gNer+HjvqqUldZCU1VAa9 A7WcEgy0DKIjuJkjJW3cqUUt ZGlu Ny7xcGsxiYolLK3gSTFssrbk y381WaArk2vtYJNtfJMvHIdt IJS6M96hn5B4CKEaSJCmFXA4 dGV4 oG2xkEqsxtchcJYxfPlrwjSf rFaeZUnpDPrtV401TBLspMqf FiHsQFw1F2MnWaj9OQZlpIkj ZT0n fLBdJMyqBb7uuUohiGogYH4l QTKtyicyi881EwJgr9moQKEa aMRyERrkLGL8E46rh0Z2VETw MDAw XZN7jKI3oW0ivEwuwzkelCPq pEoxhjGmnXijVPtlJClpJ942 WJSkqVltZuPboQs8D0HtUbo2 ZCBz oPshNK6fkOWnEGueYp4ftPnq qHdkYO8lPHDterzya997CwJh f7awMZZwhAYsKXpmUXY2A87b b3I6 QAPlMREgETE3iZB1xX0mzBof bjogbGVmdDsgdmVydGljYWwt ZCwwK462AIDgcRnvMwHwkDmq bnQg HObpGNo9Z6MqDwomeMS+PC90 DPSkSX01eGAewNBle0zmgNz6 XfJcIYYwNPF0tWknFHzmx5Qv ZXIt F84lbTKez6U4YLFdkIvmjPLx MzCeyXX6wQ5zKSjkqoeqa4ee brqnXqjon4qpir97uD44Z56q IHdp KBOiBTTpCRJzPMKrpLernu2h yW3cMm5+QSWeeCD3eMN4rH2t SPKdXbE1ILgwZ394LjZpwIVa Pjxj n7fen7qrnSk3HuG7PJHzbpZp zUxwDHU8a4TlTj17Z14pEKne HQIrJRUsYGCcKWPxxRsaey1l dG9w Ii8+LDJbfMD2aVV9eM5xJkPt SrU5JTqpX922LwOhiWSjImmm Z91tZ4LrbQT+FSCoRnf3TDZh dHls WI7cnOTnCPbkUq8wTKF3QjIx TcBkKTpwY2BsBIFtgzyfgdzt kJO4RDNhSQFxuJ67Qw8czQjq MTBw nFQDtT5gcxzrz5zialrtQuJq FBFdEPe9IHb8YJGuhSvyTaZd CRY8DcZ6WZP2yBGihO1acJmf bjog xF5hI0DoRSFauqzsCh11qC0o NuZcRoT7LEqbDjd+A11ER5wW LCBBTUFOREEgREFXTjwvdGQ+ PHRk JZM5bVytRHfuDFDpiM6qJQPj I9s8QuOyPmJ0AIriM0WsVNMm pezlZx47yS5iEgXxNkZ7NYpc O2Zv tdY4HEPoaRHsFFutNLI1X41n y6J1SFQsOJWzRGM6qBL8uP6f bGlnbjogbGVmdDsgdmVydGlj YWwt LCvsE958NVXdxSbpCtH0ScGm UaK8DFT3S7TdMus2QIWyxMiy OR4biFKaVYahDe2bmVfxqPac MC4w LAGwsuciIWPfsO4gIANotGQr nKpkSE4nTUOlpshyl441NzXl YNM1YBDxeDRuU0HqtO9bXfEp MDAw CUAqI6GqfTGuPUqhY308CTws DiN2IGLmjbWcA5XiQFVvaUoc QjR1j1Q9Ag53MQXQYTUtzeoi dGQ+ EPHcXOW5fZvhQPrhCVXasE6x ZHGnG2d7SvTeKtO1EXnwO2Jr UYGjtoopGt35lF4pXpZwUiI5 MGlu M8IrmoJ4AINotHHtHTpeNPK7 W14xv6K6CURfFTSlWWZ6cJT2 oD3yvZfyejbzeUUnvErequUp dGlj RXzqJJqvM386KSHqeJqiGsMH TUFMRTwvdGQ+OGAcNCF3wIeu XQbuXTPrgB4cSYDxY8e7KkCr LjA1 RZhoE5VfZIAxaufwMm00vV1h OgLeWeS9OXujU2XugtZ1CQLl pUQfFKckCZZ1Y74yx6X9UEXu MDAw QJM0oSM3zS8rcOtnlwualNDq oXabgfHdsMyrKYlwWSmiD125 HLXyyUbjWn6IUH83EF80G6Xd Pjwv dGFibGU+PHRhYmxlIHdpZHRo PLjmJCHxEoXqxUmaIM9sHa4p WHOeGIGsqGhffBAeOhMgp0zq YXBz QZzwTW4pvCkgI0YbaDP4KJSf n2c7Na68I79nJ5CgyKB+PGNv vHG4bOO6aD7qBfPmNgJ2VNle Z249 WcCwtYDnKlowg2hop9ujzEe2 GyQdCHGgxfFtkIhaBKL3d8Pl Yk71U01dKZafEHZbZPZdQGNq IHZh xFkuoo3hiF2rYu8+PGNvbCB3 nHI5iI1fWvJwXtY8DCzoG109 BkYbwHYeDeatG13jC4VldRG+ PHRy Ylo8LLZncIhgDA2ymCDlLAbp Yk8hODO5OvEyOfZsIIgsD9Jb HZQxnojqpcsgnGS8KTTmTQTg aW47 Ng2reDgpVu3lGPFaHZZ7KABd gJJfZ3AztL9xEdJlGTCaTSOt W0XaqLNyMVhwL862NCurCnR8 IHZl lkErK8XwJJPurYtmUaM7r7T7 Xc7SdInatLQqRL0sYvCtSVl7 T6HmFsd5AEDwmYwnGE9whKDk ZGlu Mf3wfWeueNkjWX8cREAspsin c999KiGur3uxFKSfsUQaKHxq FIE5I93yx4A5WXPfKTJqYLK4 dGV4 hM3hjUgfeimoiDVzwFdpdxCg rKylLUxzKRjgP587XUHeoDqq HoUEKpz5D7OcFvr9FTSvsTpn ZT0n vWEgFGlmVg7tsFvreFeuLK8u RUJhtpovz624QcWva6jwIJKo gFXgQUlgXEQ9D90co3M8HDEj MDAw ORG4cZG9oO0zaUsiosrcfFLw dZeifvBmtBwnUTinKPrdF192 UQTtdYuwFp5MGcl1I2DxPrq7 ZCBz mFanRT6bjWRiCKklFr2jkUgw hKyhNG9cINTepzyas241DcAm s0mxRZTjtEUrLBilMWK3P35t b3I6 GRFvIJUhKUH8sGF1qV8hlWoj bjogbGVmdDsgdmVydGljYWwt KWkaP786IADjmStiVaGpzRIg Ojwv dGQ+FW12hb41Z5FsPickLjo3 FVVcQAM0qPK3rG4lHQPeURju c1C4nHX7Z7XxnkEpdr9vc1bl YXBz ZTo (more content not included)... Normal [facility] ED Clinical Summaryon 2023 ED Clinical Summary [facility] ? Urgent Care [address] [place] [address] Clinical Summary PERSON INFORMATION Name: KARUNA DUMONT Age: 42 Years Sex: FEMALE : 1980 MRN: Acct#: Visit Reason: Skin problem; RASH ON ARMS Arrival: 08/23/2023 14:45:23 Discharge: 08/23/2023 15:20:00 LOS: 000 00:35 Check In: 08/23/2023 14:45:23 Checkout: 08/23/2023 15:20:00 Address: [address] [facility] [address] PCP: Johnathon Winter MD PROVIDER INFORMATION Provider Role Assigned Unassigned Phuong Oseguera SERVICE CAPTAIN Nurse 08/23/2023 14:46:59 Yissel Resendez PA-C ED [...] Follow-Up: With: Address: When: Johnathon Winter MD [address] [place] [address] DIAGNOSIS: 1:Rash and nonspecific skin eruption; 2:Elevated blood pressure reading without diagnosis of hypertension Patient Understands: Comment: Normal [facility] ED Patient Summaryon 024 ED Patient Summary [facility] ? Urgent Care [address] [place], [place] [id number] PATIENT DISCHARGE INSTRUCTIONS Patient Information Name: KARUNA DUMONT Age: 42 Years Date of : 1980 Reason For Visit: Skin problem; RASH ON ARMS Arrival Time: 08/23/2023 14:45:23 Primary Care Physician: Johnathon Winter MD Attending Physician: Yissel Resendez PA-C Comment: Patient Education With: Address: When: Johnathon Winter MD [address] [place] [address] Rash, Adult A rash is a change [...] with your condition: Medicine Take or apply wtwg-awf-pqgowwy and prescription medicines only as told by [...] a bath with: ? Epsom salts. Follow abrasive coating machine operator instructions on the packaging. You can get these at your local pharmacy or grocery store. ? Baking soda. Pour a small amount into the bath as told by your health care provider. ? Colloidal oatmeal. Follow abrasive coating machine operator instructions on the packaging. You can get this at your local pharmacy or grocery store. ? Try applying baking soda paste to your skin. Stir water into baking soda until it reaches a paste-like consistency. ? Try applying calamine lotion. This is an yhcl-ggd-bjxxejx lotion that helps to relieve itchiness. ? [...] rash from spreading. ? Take or apply ufew-qrt-fkqfpmf and prescription medicines only as told by your health care provider. ? Contact a health care provider if you have new or worsening symptoms. ? Keep all follow-up visits as told by yo (more content not included)... Normal [facility] Jose 05-23-2023 L Specimen: [id number] Received: 05/24/23 Status: NATHAN Burnsroberto Num: [id number] Spec Type: Surgical Subm Dr: Tee Peterson MD Tissues: A BREAST CORE NO CALCS (LT BREAST) Procedures: HE/4, Gross/Micro L4, AE1-AE3/2 Age/ Patient Sex Location Account Attending Physician Karuna Dumont 42/F [facility] [id number] Tee Peterson MD SPEC NUM: [id number] RECD: 05/24/23 STATUS: NATHAN GUZMÁN NUM: [id number] GENEVA: 05/23/23- DR: Tee Peterson MD ENTERED: 05/24/[address] [facility] DR: Bert,Lab SPEC TYPE: Surgical [...] Time: 0.10 Formalin Fixation Time: 28.50 Specimen: [id number] Received: 05/24/23 Status: NATHAN Guzmán Num: [id number] Spec Type: Surgical Subm Dr: Tee Peterson MD Tissues: A BREAST CORE NO CALCS (LT BREAST) Procedures: HE/4, Gross/Micro L4, AE1-AE3/2 Patient: Karuna Dumont [id number] (Continued) Specimen: [id number] Received: 05/24/23 (Continued) Signed (signature on file) Tootie Jordan MD 05/31/232105 Specimen: [id number] Received: 05/24/23 Status: NATHAN Guzmán Num: [id number] Spec Type: Surgical Subm Dr: Tee Peterson MD Tissues: A BREAST CORE NO CALCS (LT BREAST) Procedures: HE/4, Gross/Micro L4, AE1-AE3/2 Patient: Karuna Dumont [id number] (Continued) Specimen: [id number] Received: 05/24/23 (Continued) CPT Codes 22352 Specimen: [id number] Received: 05/24/23 Status: NATHAN Guzmán Num: [id number] Spec Type: Surgical Subm Dr: Tee Peterson MD Tissues: A BREAST CORE NO CALCS (LT BREAST) Procedures: HE/4, Gross/Micro L4, AE1-AE3/2 Patient: Karuna Dumont [id number] (Continued) Signed (signature on file) Tootie Jordan MD 05/31/232105 Normal [facility] MR LUMBAR SPINE [...] Yung Perry on 05/23/2023 12:47 PM Normal [facility] Free testosterone measuremen t by LC-MS/MSon 05-10-2023 Testosterone Free [Mass/Vol] 0.6 pg/mL 0.0-4.2 [facility] Comment on above: Performed at: [facility] [employer] [id number] Director: Theron Roblero PhD, Phone: [phone] at: [facility] [employer] [id number] Director: Katelynn Macdonald MD, Phone: [phone] No Panel Informationon 05-10 C-Peptide 2.8 ng/mL 1.1-4.4 [facility] Comment on above: C-Peptide reference interval is for fasting patients.Performed at: [facility] [employer] [id number] Director: Theron Roblero PhD, Phone: [phone] Dehydroepiandrosterone Sulfate 194.0 ug/dL 57.3-279.2 [facility] Free Cortisol, Dialysis, LCMS 0.787 ug/dL . [facility] Comment on above: These tests were dev eloped and their performancecharacteristics determined by [facility] (formerly [facility]). They have not beencleared or approved by the Food and Drug Administration.Reference Range:8 AM 0.10 - 1.204 PM 0.042 - 0.872Performed at: [facility] [employer] [place] [id number] Director: Kal Archibald MD, Phone: [phone] Reverse Triiodothyronine (T3) 23.0 ng/dL 9.2-24.1 [facility] Comment on above: This test was develo ped and its performance characteristicsdetermined by [facility]. It has not been cleared orapproved by the Food and Drug Administration.Performed at: [address] [id number] Director: Katelynn Macdonald MD, Phone: [phone] Sex Hormone Binding Globulin 49.1 nmol/L 24.6-122.0 [facility] Comment on above: Performed at: [address] [id number] Director: Theron Roblero PhD, Phone: [phone] Testosterone Level 22 ng/dL 8-60 [facility] Plasma serotonin measurement (mass/volume)on 05-10-2023 Serotonin (P) [Mass/Vol] 105 ng/mL [id number] [facility] Comment on above: This test was develo ped and its performance characteristicsdetermined by [facility]. It has not been cleared orapproved by the Food and Drug Administration.Performed at: [address] [id number] Director: Katelynn Macdonald MD, Phone: [phone] Serum estrone measurementon 05-10-2023 E1 [Mass/Vol] 65 pg/mL 231 [facility] Comment on above: Range Adult (Premeno pausal) 27 - 231 Menstrual Cycle (1-10 days) 19 - 149 Menstrual Cycle (11-20 days) 32 - 176 Menstrual Cycle (21-30 days) 37 - 200Performed at: [address] [id number] Director: Katelynn Macdonald MD, Phone: [phone] Serum or plasma estradiol (E 2) measurement (mass/volume)on 05-10-2023 E2 [Mass/Vol] 98.9 pg/mL . [facility] Comment on above: Adult Female Range F ollicular phase 12.5 - 166.0 Ovulation phase 85.8 - 498.0 Luteal phase 43.8 - 211.0 Postmenopausal <6.0 - 54.7 1st trimester 215.0 - >4300.0Roche ECLIA methodology Serum or plasma insulin mariam urement (units/volume)on 05-10-2023 Insulin Qn 7.0 u[iU]/mL 2.6-24.9 [facility] Comment on above: Performed at: [employer] [facility] [id number] [place] [id number] Director: Theron Roblero PhD, Phone: [phone] Serum or plasma progesterone measurement (mass/volume)on 05-10-2023 Progesterone [Mass/Vol] 0.1 ng/mL . [facility] Comment on above: Follicular phase 0.1 - 0.9 Luteal phase 1.8 - 23.9 Ovulation phase 0.1 - 12.0 First trimester 11.0 - 44.3 Second trimester 25.4 - 83.3 Third trimester 58.7 - 214.0 Postmenopausal 0.0 - 0.1Performed at: [facility] [address] [place], [place] [id number] Director: Theron Roblero PhD, Phone: [phone] Serum or plasma thyroperoxid ase antibody assay (units/volume)on 05-10-2023 TPO Ab Qn 11 [IU]/mL 0-34 [facility] Thyroglobulin [Mass/volume] in Serum or Plasmaon 05-10-2023 Thyroglobulin [Mass/Vol] <1.0 [IU]/mL 0.0-0.9 [facility] Comment on above: Thyroglobulin Antibo dy measured by [employer] CRMMethodologyPerformed at: [employer] [id number] [place], [place] [id number] Director: Theron Roblero PhD, Phone: [phone] XR LUMBAR SPINE AP, LATERAL, FLEXION AND [...] Yung Perry on 05/05/2023 1:28 PM Normal [facility] Coding Summaryon 03-20-2023 Coding Summary HTMLBase 64 RmdlimwtGXa1oTi+PGhlYWQ+ JV1BZNKyE21nvISvcL4bB1JU TElOSywgQVBQTElOSyIgbmFt XC0toQOtFQAm IC8+IZ2jJSEoLgzvaATmb5N4 dVW2G23spo7nCHtnbZD5QAWh TtJyyzxid3kanSd4CQmmJory OyBt SAWaqP20FTF6zY61Bz91iSRv uKQsl3ikgSg0JuSoYULaKZL7 mBsqNYrkj5TnVCHoW72mrBWk c2U6 JOOmaClidYXmKvRplQW8oD3q LQbiynzyd0ovzlvkOet1lm04 jLRth3V3uDQ7V9JxjgJ9OREq bGQg UmbmgATNuR3mjngfv3hqeena CsVsFJQlOAl9XGx2ARHayTyi CiSmLH22LOA5IALdquOzK0Fg LWFs hKijHlO2v9N8Np5GT8EZDypr G9HXNFPDEBsetQR+DW20ve51 N2UoRitfKea8MTQwNXZ6uYP4 aD0n QVAqKIvio3V1vYX6B7IgeqBy sb1bc1zqQRCbKQgzY59cwBOd u1V0AFJwaMA0JDJhbEciSvIs aG93 Oyc+JRQswFlho5PdOipjl5mj k3jioCo1CtjxGQSoswNtiMqb GRT4x8TiNp5bIGXulGP3rXO8 aD0i AkIbVaO8XCxyN597WpKfiFPw EgteZ57bF0MrfTI+PHRyPjx0 AGIlvUocQP5hV9NbBTFshqvy bGVm bTidVE9cYZFxbwkfKSGrwR7g MXMdG2z0YuBcKqM2QPgcR2Yb PVLsyiwsNv71fL3bTcFgJaR9 MGlu M7IrpwB4KCLffFEbKQuqIRW2 Y40gc7E7UNDwDPUfSCI0oHI9 lL7wjPlnjwdtqRNwaYokrxHo dGlj ZOahGSqjN532YAObhPqhFwOy ZGluZyBEYXRlOiAgMTIvMTgv MjAyMzwvdGQ+OBNmSMV3wVaf PSAn ePScVCjyPl4gmEpduSzbBV1q OLGfjxaaAARcfY8qWKEtcUSn eYduWU8lGLImjyoyj493NcGo MHB0 OPEoiEPyZ5ZlxK3rMnZwXYJn GVNcO7ZtkWRqYAglJ874PLhc QmT7KYFbwmOlT2YeRETzpEnb OiB0 v1C9Dn4Kv9ZjffjnN0MucSNk ZuDeKdgiTTp6B4PuRucokKK+ GD70QUSbEJ35FZy2MDD8wCal PSdi EOTyL2QatP9zDoYdHZBpEAJp Oyc+PHRhYmxlIHdpZHRoPScx CNRxBmFszEoiUY8wDj2zMKNa LWNv wUtrqIAdVmBda9dePBPoBAio UP0vvTnzI1FtjAK3HXUog4d8 Qq69G17dE9PamYF+PGNvbCB3 aWR0 hJ5kYdNwOuR9PMsjU333YjBq jFGhQhqbi0eqb0wduLy6BcX9 ZEEammVhoQzjPTL2m7GiFs83 Y29s IHdpZHRoPSIxNSUiIHZhbGln bw4bnP2cGm3+VPRtmCW4fAL9 mG3fEqZqXmL7FRzaW195QrIu cCIv Fgkjl1mgh8opcQb9BsQaVUFr znQmuVelTHH7y6FgCe63M6Sp bLtis2QqOpa5gh30iXKzm5N5 bGU9 M4DpORGfmwadcLJxgQpqHD5d INKsrenvLJLdtL0qVXWqO7n3 FiMaVgS0ERgcV3TwzgO1YNLw bGQg WGLxvEXLmZ1vauehp1rztcnv IeVqUEYjPDc1YXc5DNJfqXqw WfRmLUQ6CdU1JDM9qDQggI6p bGln nessqM1mZui+YUS9qWSigVOA SR0nTyuxeFI+WYUwLLP5wZvd OPjaEHZfqT9zTTZoU7q0RnDm LjA1 QRafO4HpvnI0CLPokFCsRZXx aIKRvV7ztybhe9mgrezoLlQe YFVvYFs3GLf4UKRdxMpcUpGk ZWZ0 VcD1MOD2uETfzQ9piXemxvwp eO0vMra+XmgkaRspCJT8OZo8 M8BnCjp1NIIeoNtoJB4xmWCa ZGlu Hj5vdHqnyFuoRH9bVKFzwvfj h753FgUci4xaRAIzfXOfXHrl YTU4F83ny6W7BZXsRHNqXBJ0 dGV4 fI8jhLsvwpnkyCShaCefhhEp nRevEGxnBOfvU438SDYsdWvv PuYqECv3D9TxSsc4FKKgsBwd ZT0n sCUxVZgiIx0nwNnvuHxiDV8y HXQzirdqm424YjCkx5xyBLTa uWAmFPueIXB0G78zx2X1LPPm MDAw SCH3uEF5nZ8ifNcpcthtyYGs dIpifpBnpVleUPpmYXyqC542 DAZyeErhOxPnyId5D7AaSvf7 ZCBz nFxcET5uaVAuRNljFk3lzBfl sYmmCK6tVFUyshyds173CpVd u1mqDXYrcOBdRPekQCW1Z56j b3I6 KSAwNBOjDWI8sDK9jH0etFss bjogbGVmdDsgdmVydGljYWwt YEjbL314ZCOlaQzpWbDvgFnx bnQg JZqmWYi7V0HtRwbtyQL+PC90 OMUaIM84oUQkiWYrf9xxuBa1 LaGfQMFcEVA7aPvwOQjur6Ml ZXIt O88wtDJhx0K8ADImhYisrCSw EpQacVB3iA2oDObaomjbi2zi hckbGzitx6ztlm06mT95B79c IHdp YJYoSXNbZNBiPZXdzQztiw1t rD1zNb7+TIMvyAP9lZU6yL9f FJTwUlB0JUzvO429RbSgzVJx Pjxj l5wzf8mjoZm3SeS5BNNsyrUn fWztKGO9u3MqHn97Q54cNNnc FMBrXZYxPENnLPYdxGoiel6l dG9w Ii8+PQYqhGV4lFQ0lU2iMjMe SuZ2LDvrO580ZaVllRZiOkho A90oZ6YxcRH+TZBxCsd5FRSq dHls PE2daAWuOUlaSy5xLFO5EyKv QkPfCMbfW6AaGDJjqgrptbax mJB5XDXfYOThzW53Pq3wkCgj MTBw dOTVeG3rgxzlx5dwyekoWsUl DCNlGRi0CWl8FLIuwTsnRzLc YBS1NiL3ZJO5mSJkoA3frRyy bjog vM2gX6HtYZQvpyywGv56nE6s DuEfAvB9UAejDsr+N75GK6pG LCBBTUFOREEgREFXTjwvdGQ+ PHRk ANW2iCyiQPwgXJKpmX7fFRVk D1v5EwXsUiP9YClzE2ViPESo majzEy67dR4oDsFbKnI6MNlc O2Zv vhT3JNMglBQcGZcmZZK8B38m g6N8SFHmREGoCPA6yFA5hT0n bGlnbjogbGVmdDsgdmVydGlj YWwt WDicK113DVZbpHknPaX4ObNk XjN5AQR2B7JeLxi1ORCzoSqj PQ6bhILzTFkxKz7kwEppqLkt MC4w XMNcihmhETUkeR2hSJFrjMJn bAcuRF0hEYWoypekc978QiTm EJM9GDHqgGNkR3YpmJ1nNbRa MDAw GWMxN9WpiZXoMJvnI912AKfg FgP5NCYcclIdD1JlZELloIeg KtZ0m1E2Vx50GVAPYJOtlutj dGQ+ HWQoUVC2rVuzQAqtTXEziM2m YVZpK8l6IrLdRwT5YOmdA0Ga FATbxbseLf46vZ2gHmPkIlL8 MGlu I1GjwhU9FMBesLPxTGvoZRV9 Y18os8S0PPBiURIhBLL2uBP7 rJ7brNzdzarktYYzsJakxxMx dGlj RPmgVUixK691WQJroRzbNeJE TUFMRTwvdGQ+PWNfOHG6fLyt IRqqKXDwpI1uHNCaU8k1IbVa LjA1 VWfqX4JsXVMjhlrqFz45wF1n KeMiNzB6CAyoT8XvvxR9GOHt sBBhIUuzIUS1V06tt8X4KFGc MDAw YAK4eLD0xP1hjWojifgwmEYp wHjrtiMntHeaNDdpKOqoM862 KODlqJeaZq6DFE06OT56G3Mk Pjwv dGFibGU+PHRhYmxlIHdpZHRo SXqbTRUmGhBrvZdqHZ5nQm6q KFLtPZJywXfczTTnBzDrr7jc YXBz WBgmZQ2khBfuB7VblGN7PTBw x6e6Rm95F48aQ3OrbDC+PGNv xDJ9lBO0qR1xNtXpEtI8UPtf Z249 GeYtaQAaVtqdy2tha2bfyDx9 JpRpFOIqnxLndTzbBEV5l6Mt Ir19P01uANrfMTJqJAYbSGRb IHZh lOfkoa8fmM8lCv2+PGNvbCB3 yDP8cH4bVfYaVbI4WSwhZ619 AwCgcHJxNijoP25cO5SbvRD+ PHRy Wlm4OENlxKjhTP8lgGWmHJne Rv1xAMY1VzDzPxFgOZehW8Av TYPvcxwuyievbMM2KKUoDLCn aW47 Bm0ctHozFr3gAUGeORZ8RYFl tDTyR2RayR6wGnAxPLMnWNAt G3EvkHCsGIdrS313BTqhMiU0 IHZl wgLrA2HmYXYzgWqsXiY1m3S1 Tf8LyCsqaMLdWS7sOsEhLOo4 Z2AoAvl3JPKyoKekHY7inPXa ZGlu Qs0wfJnkuDfjHE9cBLRatgza d376BeRns4fhREBpcNXcDGgw GYO0C75hj6A9HERaUCVnAUQ7 dGV4 oA6gxNkwxgmhoVGbdCqqbyBv oSgmXSczJOmjW932NPEmgGzy OuIRAmv7U4QjRdz0HPFohPkf ZT0n bVUbBNmmPx9fnIydeDvpHP1i ISStttzgl213HtJxh6ceYORq fUGkQMukEJU5O06rg3Q2ZIVe MDAw ZIB6wQR1zF0lbTycobhuaXYz fBtmvdDoxWdyUJcoIGlbM475 OTMhmQphNs0EJqw6A0TzFkd7 ZCBz fTwvMC3bePVoCDiuIh8gkIxf eVuuJA2fTRMqsiwou604FlZg f5spIEEulVQmTVupZQC5E67z b3I6 GYDvFNDpXTG2zLP7qA9hrXpb bjogbGVmdDsgdmVydGljYWwt LRxdU390SEMuvYurNaFwlWAf Ojwv dGQ+WV14af19R2ZuUekfIcn5 CXIkBQD1qRH8mA3qGPPhVJuh r3J9uOC0S3RjocPyup6rv9ds YXBz ZTo (more content not included)... Normal [facility] ED Clinical Summaryon 2022 ED Clinical Summary [facility] ? Urgent Care [address] [place], [place] [id number] Clinical Summary PERSON INFORMATION Name: KARUNA DUMONT Age: 42 Years Sex: FEMALE : 1980 MRN: Acct#: Visit Reason: UC - Finger/Thumb Injury; RT RING FINGER INJURY Arrival: 03/09/2023 10:15:32 Discharge: 03/09/2023 12:03:00 LOS: 000 01:48 Check In: 03/09/2023 10:15:32 Checkout: 03/09/2023 12:03:00 Address: [facility] JAQUELIN [facility] [address] PCP: Johnathon Winter MD PROVIDER INFORMATION Provider [...] With: Address: When: YUNG LAWS DO [address] [employer] [address] [place] [id number] Within 3 to 5 days Comments: [...] verbalizes understanding of instructions given Comment: Normal [facility] ED Patient Summaryon 023 ED Patient Summary [facility] ? Urgent Care [address] [place] [address] PATIENT DISCHARGE INSTRUCTIONS Patient Information Name: KARUNA DUMONT Age: 42 Years Date of : 1980 Reason For Visit: UC - Finger/Thumb Injury; RT RING FINGER INJURY Arrival Time: 03/09/2023 10:15:32 Primary Care Physician: Johnathon Winter MD Attending Physician: Sanchez John Comment: Patient Education With: Address: When: YUNG LAWS DO [address] [employer] [address] [place] [address] Within 3 to 5 days Comments: Diagnosis [...] or cold (more content not included)... Normal [facility]gent Care [place] 023 Urgent Care Record [facility] ? 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 were for an urgent problem and are not intended as complete care. It is important for you to follow up with a doctor, nurse practitioner, or physician?s preschool assistant director for ongoing care. If your symptoms become [...] so we can reach you if necessary. [facility] has provided you with a complete list of medications post discharge. Please inform your trimmer press clippings/provider of your visit and for further instruction [...] 10-11 No acute bony abnormalities are noted [facility] RIS CONSOLIDATED EXAMINATION: THREE XRAY VIEWS [...] well maintained. Soft tissue swelling. Calcaneal spurs [facility] RIS CONSOLIDATED Miller Romo MD - 10/11/2022 [...] IMPRESSION: No acute bony abnormalities are noted [facility] Radiology Study observation (narrative) [facility] No Panel InformationOrdered By: Miller Romo on 10-11-2022 [facility] Work Phone: XR ANKLE RIGHT [...] Miller Romo MD 10/11/22 Final result Normal [facility] XR FOOT RIGHT (MIN 3 VIEWS)o [...] Miller Romo MD 10/11/22 Final result Normal [facility] PAP ACOG PANEL 2: 30 to 65on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 Sanjeev Jessica DO Work Phone: [facility] 12-06-2023 11:46-0400 Systolic blood pressure 124 mm[Hg] Sanjeev Jessica DO Work Phone: [facility] 11-29-2023 13:37-0400 Body mass index (BMI) [Ratio] 34.28 kg/m2 Sanjeev Jessica DO Work Phone: [facility] 11-29-2023 13:37-0400 Body weight 93.44 kg Sanjeev Jessica DO Work Phone: [facility] 11-29-2023 13:37-0400 Diastolic blood pressure 74 mm[Hg] Sanjeev Jessica DO Work Phone: [facility] 11-29-2023 13:37-0400 Systolic blood pressure 128 mm[Hg] Sanjeev Jessica DO Work Phone: [facility] 06-12-2023 10:05-0400 Body height 165.1 cm Rohit Metzger MD Work Phone: [facility] 06-12-2023 10:05-0400 Body mass index (BMI) [Ratio] 38.94 kg/m2 Rohit Metzger MD Work Phone: [facility] 06-12-2023 10:05-0400 Body weight 106.14 kg Rohit Metzger MD Work Phone: [facility] 05-16-2023 13:48-0500 Body height 165.1 cm Rohit Metzger MD Work Phone: [employer] 05-16-2023 13:48-0500 Body mass index (BMI) [Ratio] 38.94 kg/m2 Rohit Metzger MD Work Phone: [employer] 05-16-2023 13:48-0500 Body weight 106.14 kg Rohit Metzger MD Work Phone: [employer] 01-02-2023 10:00-0400 Body height 162.56 cm Johnathon Winter Other [employer] Other 01-02-2023 10:00-0400 Body mass index (BMI) [Ratio] 42.91 kg/m2 Johnathon Winter Other [employer] Other 01-02-2023 10:00-0400 Body weight 113.4 kg Johnathon Winter Other [employer] Other 01-02-2023 10:00-0400 Diastolic blood pressure 82 mm[Hg] Johnathon Winter Other [employer] Other 01-02-2023 10:00-0400 Systolic blood pressure 126 mm[Hg] Johnathon Winter Other [employer] Other 2022 11:00-0400 Body height 162.56 cm Johnathon Winter Other [employer] Other 2022 11:00-0400 Body mass index (BMI) [Ratio] 44.56 kg/m2 Johnathon Winter Other [employer] Other 2022 11:00-0400 Body weight 117.75 kg Johnathon Winter Other [employer] Other 2022 11:00-0400 Diastolic blood pressure 101 mm[Hg] Johnathon Winter Other [employer] Other 2022 11:00-0400 SaO2% (BldA) [Mass fraction] 100 % Johnathon Winter Other [employer] Other 2022 11:00-0400 Systolic blood pressure 138 mm[Hg] Johnathon Winter Other [employer] Other 10-11-2022 18:45-0400 Body height 165.1 cm Roxie Garcia MD Work Phone: [employer] 10-11-2022 18:45-0400 Body mass index (BMI) [Ratio] 43.93 kg/m2 Roxie Garcia MD Work Phone: [employer] 10-11-2022 18:45-0400 Body temperature 99 [degF] Roxie Garcia MD Work Phone: [employer] 10-11-2022 18:45-0400 Body weight 119.75 kg Roxie Garcia MD Work Phone: [employer] 10-11-2022 18:45-0400 Diastolic blood pressure 108 mm[Hg] Roxie Garcia MD Work Phone: [employer] 10-11-2022 18:45-0400 Heart rate 87 /min Roxie Garcia MD Work Phone: [employer] 10-11-2022 18:45-0400 Respiratory rate 16 /min Roxie Garcia MD Work Phone: [employer] 10-11-2022 18:45-0400 SaO2% (BldA) [Mass fraction] 98 % Roxie Garcia MD Work Phone: [employer] 10-11-2022 18:45-0400 Systolic blood pressure 160 mm[Hg] Roxie Garcia MD Work Phone: [facility] [employer] [facility] [employer] 01-03-2022 13:54-0400 Diastolic blood pressure 95 mm[Hg] Teo Agueroan DO [employer] [facility] [employer] [facility] [employer] 01-03-2022 13:54-0400 Heart rate 61 /min Teo Froylanfman DO [employer] [facility] [employer] [facility] [employer] 01-03-2022 13:54-0400 SaO2% (BldA) [Mass fraction] 100 % Teo Morean DO [employer] [facility] [employer] [facility] [employer] 01-03-2022 13:54-0400 Systolic blood pressure 142 mm[Hg] Teo Agueroan DO [employer] [facility] [employer] [facility] [employer] 01-03-2022 11:46-0400 Body height 165.1 cm Teo Agueroan DO [facility] [employer] [facility] [employer] 01-03-2022 11:46-0400 Body mass index (BMI) [Ratio] 44.1 kg/m2 Teo Agueroan DO [facility] [employer] [facility] [employer] 01-03-2022 11:46-0400 Body temperature 97.7 [degF] Teo Thomas DO [employer] 01-03-2022 11:46-0400 Body weight 120.2 kg Teo Thomas DO [employer] [facility] [employer] 01-03-2022 11:46-0400 Respiratory rate 16 /min Teo Morean DO [employer] [facility] [employer] 08-19-2021 18:03-0400 Diastolic blood pressure 98 mm[Hg] Radha Sanders MD Work Phone: [employer] 08-19-2021 18:03-0400 Heart rate 92 /min Radha Sanders MD Work Phone: [employer] 08-19-2021 18:03-0400 Respiratory rate 16 /min Radha Sanders MD Work Phone: [employer] 08-19-2021 18:03-0400 SaO2% (BldA) [Mass fraction] 96 % Radha Sanders MD Work Phone: [employer] 08-19-2021 18:03-0400 Systolic blood pressure 145 mm[Hg] Radha Sanders MD Work Phone: [employer] 08-19-2021 16:28-0400 Body height 165.1 cm Radha Sanders MD Work Phone: [facility] [facility] [employer] 08-19-2021 16:28-0400 Body mass index (BMI) [Ratio] 45.76 kg/m2 Radha Sanders MD Work Phone: [facility] 08-19-2021 16:28-0400 Body temperature 98.6 [degF] Radha Sanders MD Work Phone: [facility] 08-19-2021 16:28-0400 Body weight 124.74 kg Radha Sanders MD Work Phone: [facility] Encounters Encounter Date Encounter Type Care Provider Facility Start: 03-22-2024 End: 03-22-2024 Documentation procedure Caitlyn Carter [facility] Start: 02-26-2024 End: 02-26-2024 Bamboo flowsheet Sanjeev Jessica DO Work Phone: [facility] Start: 02-26-2024 End: 02-26-2024 Bamboo flowsheet Sanjeev Jessica DO Work Phone: [facility] Start: 02-26-2024 End: 02-26-2024 Office outpatient visit 15 minutes Sanjeev Jessica DO Work Phone: [facility] Comment on above: Breast pain Start: 02-26-2024 End: 02-26-2024 ambulatory SANEJEV JESSICA Not Available Start: 01-26-2024 End: 01-26-2024 Orders Only Alfonso Liang MD Work Phone: [facility] Start: 01-26-2024 End: 01-26-2024 Evaluation and management of inpatient FIDEL MARTINEZ [facility] Start: 01-25-2024 End: 01-26-2024 ambulatory [facility] Start: 01-18-2024 End: 01-18-2024 Admission to [facility] Phone Call Provider 3 Tom Issa [facility] Start: 01-18-2024 End: 01-18-2024 Evaluation and management of inpatient JOHNATHON WINTER [facility] Start: 01-14-2024 End: 01-14-2024 Emergency department patient visit Santy Quintanilla Facility:[facility] Start: 01-03-2024 End: 01-03-2024 Bamboo flowsheet [...] Not Available Start: 01-03-2024 End: 01-03-2024 ambulatory [facility] Start: 12-28-2023 End: 12-29-2023 Clinisync Result Encounter Sanjeev Jessica DO Work Phone: [facility] Unsolicited Start: 12-28-2023 End: 12-29-2023 Clinisync Result Encounter Sanjeev Jessica DO Work Phone: [facility] Unsolicited Start: 12-22-2023 End: 12-22-2023 Clinisync Result Encounter Sanjeev Jessica DO Work Phone: [facility] Unsolicited Start: 12-22-2023 End: 12-22-2023 Clinisync Result Encounter Sanjeev Jessica DO Work Phone: [facility] Unsolicited Start: 12-08-2023 End: 12-08-2023 Clinisync Result Encounter Sanjeev Jessica DO Work Phone: [facility] Unsolicited Start: 12-08-2023 End: 12-08-2023 Clinisync Result Encounter Sanjeev Jessica DO Work Phone: [facility] Unsolicited Start: 12-06-2023 End: 12-06-2023 Departed Referred DO Sanjeev Jessica Work Phone: [facility] [place] Work Phone: Start: 12-06-2023 End: 12-06-2023 Patient encounter procedure Sanjeev Jessica DO Work Phone: [facility] Comment on above: Pre-op examination; Menorrhagia with regular cycle; Abnormal uterine bleeding (AUB); Pelvic pain; Hormone disorder Start: 12-06-2023 End: 12-06-2023 Preprocedural examination done Sanjeev Jessica DO Work Phone: [facility] Start: 12-06-2023 End: 12-06-2023 ambulatory Sanjeev Suggso [facility] Work Phone: Start: 11-29-2023 Non-patient / Non-visit DO Cor ey Jessica Work Phone: [facility] Work Phone: Start: 11-29-2023 End: 11-29-2023 Bamboo flowsheet Sanjeev Jessica DO Work Phone: [facility] Start: 11-29-2023 End: 12-02-2023 Bamboo flowsheet Sanjeev Jessica DO Work Phone: [facility] Start: 11-29-2023 End: 12-02-2023 Clinisync Result Encounter Sanjeev Jessica DO Work Phone: [facility] Unsolicited Start: 11-29-2023 End: 11-29-2023 Office outpatient visit 15 minutes Sanjeev Jessica DO Work Phone: [facility] Comment on above: Encounter to discuss procedure; Menorrhagia with regular cycle; Decreased libido Start: 11-29-2023 End: 11-29-2023 ambulatory SANJEEV JESSICA Not Available Start: 11-22-2023 End: 11-22-2023 ambulatory MARTÍN ORTEGA [facility] Start: 11-20-2023 End: 11-20-2023 ambulatory Christiano Rivera MD Facility:[facility] Start: 11-13-2023 End: 11-13-2023 ambulatory Christiano Rivera MD Facility:[facility] Start: 10-25-2023 Non-patient / Non-visit DO Cor ey Jessica Work Phone: [facility] Work Phone: Start: 08-23-2023 End: 08-23-2023 ambulatory KELI Resendez Facility:[facility] Start: 08-02-2023 End: 08-02-2023 ambulatory ROBERT URRUTIA Not Available Start: 07-31-2023 End: 07-31-2023 ambulatory Bhavin Montgomery MD Facility:[facility] Start: 07-19-2023 End: 07-19-2023 ambulatory SANJEEV JESSICA Not Available Start: 07-17-2023 End: 07-17-2023 ambulatory Bhavin Montgomery MD Facility:[facility] Start: 06-26-2023 End: 06-26-2023 ambulatory Bhavin Montgomery MD Facility:[facility] Start: 06-15-2023 End: 06-15-2023 ambulatory SANJEEV JESSICA Not Available Start: 06-12-2023 End: 06-12-2023 ambulatory ROHIT SMITH [facility] Comment on above: Lumbar radiculopathy , chronic (Primary Dx); Herniated lumbar intervertebral disc Start: 06-12-2023 End: 06-12-2023 Office outpatient visit 10 minutes Rohit Smith MD Work Phone: [facility] Comment on above: 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) Start: 06-06-2023 [facility]ulatory [facility] Start: 05-24-2023 Orders Only Reny barlow FINANCIAL A[employer] COORDINATOR[employer] Work Phone: [facility] Comment on above: Herniated lumbar int ervertebral disc (Primary Dx); Lumbar radiculopathy, chronic Start: 05-23-2023 End: 05-23-2023 ambulatory Tee Peterson [facility] Work Phone: Start: 05-23-2023 End: 05-23-2023 Departed Referred MD Tee Peterson Work Phone: [facility] Start: 05-19-2023 End: 05-19-2023 ambulatory [facility] Start: 05-16-2023 End: 05-16-2023 ambulatory ROHIT SMITH [facility] Start: 05-16-2023 End: 05-16-2023 Office outpatient new 30 minutes Rohit Smith MD Work Phone: [facility] Comment on above: 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); Finger injury, right, initial encounter Start: 05-15-2023 Orders Only Reny barlow FINANCIAL AID COORDINATOR[employer] Work Phone: [facility] Comment on above: Herniated lumbar int ervertebral disc (Primary Dx) Start: 05-10-2023 End: 05-10-2023 ambulatory Johnathon Winter Other [employer] Other Start: 05-10-2023 Encounter by compute r link Johnathon Winter [facility] Start: 05-10-2023 Non-patient / Non-visit MD Jones Work Phone: [facility] [employer] Work Phone: Start: 05-04-2023 End: 05-04-2023 Office outpatient visit 10 minutes Oswaldo Dee NP Work Phone: [facility] Comment on above: 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); Pain in finger of right hand Start: 05-04-2023 End: 05-04-2023 ambulatory [facility] Start: 05-01-2023 End: 05-01-2023 ambulatory SANJEEV LOPEZ Not Available Start: 04-19-2023 End: 04-19-2023 ambulatory Scottie Lyn Other [employer] Other Start: 04-19-2023 Telephone encounter Scottie Lyn [facility] Start: 04-14-2023 End: 04-14-2023 Orders Only Serina Rodriguez [facility] Comment on above: Back pain, unspecifi ed back location, unspecified back pain laterality, unspecified chronicity (Primary Dx) Start: 04-12-2023 End: 04-12-2023 ambulatory Johnathon Winter Other [employer] Other Start: 04-12-2023 Telephone encounter Johnathon Winter [facility] Start: 04-11-2023 End: 04-11-2023 ambulatory Johnathon Winter Other [employer] Other Start: 04-11-2023 Telephone encounter Johnathon Winter [facility] Start: 04-10-2023 End: 04-10-2023 ambulatory Johnathon Winter Other [employer] Other Start: 04-10-2023 Encounter by kriss Winter [facility] Start: 03-16-2023 End: 03-16-2023 ambulatory OSWALDO DEE Not Available Start: 03-09-2023 End: 03-09-2023 ambulatory Sanchez DICKEY Facility:[facility] Start: 01-30-2023 End: 01-30-2023 ambulatory Johnathon Winter Other [employer] Other Start: 01-30-2023 Telephone encounter Johnathon Winter [facility] Start: 01-02-2023 End: 01-02-2023 ambulatory Johnathon Winter Other [employer] Other Start: 01-02-2023 Office outpatient vi sit 15 minutes Johnathon Winter [facility] Start: 12-09-2022 End: 12-09-2022 ambulatory Johnathon Winter Other [employer] Other Start: 12-09-2022 Telephone encounter Johnathon Winter [facility] Start: 12-08-2022 End: 12-08-2022 ambulatory Johnathon Winter Other [employer] Other Start: 12-08-2022 Telephone encounter Johnathon Winter [facility] Start: 2022 End: 2022 ambulatory Johnathon Winter Other [employer] Other Start: 2022 Office outpatient ne w 30 minutes Johnathon Winter [facility] Start: 10-11-2022 End: 10-11-2022 Emergency department patient visit JOHNATHON WINTER [facility] Start: 10-11-2022 End: 10-11-2022 Emergency department patient visit Roxie Garcia MD Work Phone: [facility] Emergency Department Comment on above: Sprain of right ankl e, unspecified ligament, initial encounter (Primary Dx) Start: 07-11-2022 End: 07-11-[address] SANJEEV LOPEZ . Facility: Start: 04-29-2022 End: 04-30-[address] SANJEEV LOPEZ . Facility:[facility] Start: 02-16-2022 End: 02-16-2022 Emergency department patient visit JOHNATHON WINTER [facility] Start: 01-03-2022 End: 01-03-2022 Emergency department patient visit JOHNATHON WINTER [facility] Start: 01-03-2022 End: 01-03-2022 Emergency department patient visit Teo Mina Thomas [facility] Comment on above: Gastroenteritis (Neetu emil Dx) Start: 08-19-2021 End: 08-19-2021 Emergency department patient visit Radha Sanders MD Work Phone: [facility] Comment on above: Herniated lumbar int ervertebral disc (Primary Dx) Procedures Date Procedure Procedure Detail Performing Clinician Start: 12-28-2023 Cyanocobalamin vitamin b-12 Sanjeev Jessica DO Work Phone: Start: 12-22-2023 ALL CBC WITH AUTO DIFF Sanjeev Jessica DO Work Phone: Start: 12-08-2023 MLR HEMOGLOBIN A1C Core y Jessica DO Work Phone: Start: 12-06-2023 Urine test visual color cmprsn meths Sanjeev Jessica DO Work Phone: Start: 11-29-2023 ALL DHEA SULFATE Sanjeev Jessica DO Work Phone: Start: 11-29-2023 METRO SEX BINDING HO RMONE (SHBG), TESTOSTERONE, FREE AND BIOAVAILABLE Sanjeev Jessica DO Work Phone: Start: 11-29-2023 SRMCOH TESTOSTERONE FREE/TOT EQUILIB Sanjeev Jessica DO Work Phone: Start: 06-12-2023 Follow-up visit Follow-up ROHIT FRIASHTNHAN Metzger Start: 10-11-2022 Radex ankle complete minimum 3 views Bailee Lew FINANCIAL AID COORDINATOR - BOILERMAKER [employer]FTSM[employer] Work Phone: Start: 01-03-2022 Urinalysis microscopic only Zachariah Foster FINANCIAL AID COORDINATOR - DEWAXER Work Phone: Start: 01-03-2022 Urnls dip stick/tabl et rgnt auto w/o microscopy Zachariah Foster FINANCIAL AID COORDINATOR - [employer]WA[employer]ER Work Phone: Start: 01-03-2022 Ct abdomen & pelvis w/contrast material Zachariah Foster FINANCIAL AID COORDINATOR - DEWAXER Work Phone: Start: 01-03-2022 Assay of lipase Zachariah Foster FINANCIAL AID COORDINATOR - DEWAXER Work Phone: Start: 12-01-2021 Adult depression scr eening assessment Serina Rodriguez RMA Start: 08-19-2021 Ct lumbar spine w/o contrast material Radha Sanders MD Work Phone: Plan of Treatment Date Care Activity Detail Author Start: 01-25-2025 Adult BMI Screening Adult BMI Screening [facility] Start: 01-25-2025 Tobacco Screening Tobacco Screening [facility] Start: 01-17-2025 Adult BMI Screening Adult BMI Screening [facility] Start: 01-02-2025 Tobacco Screening Tobacco Screening [facility] Start: 07-22-2024 End: 07-22-2024 Patient encounter procedure 07/22/2024 3:00 PM EDT Office Visit [facility] [address] [place] [address] Sanjeev Lopez, DO [address] [place] [address] [facility] Start: 06-11-2024 Adult BMI Screening Adult BMI Screening [facility] Start: 06-11-2024 Tobacco Screening Tobacco Screening [facility] Start: 05-16-2024 Adult BMI Screening Adult BMI Screening [facility] Start: 05-16-2024 Tobacco Screening Tobacco Screening [facility] Start: 05-08-2024 Adult BMI Screening Adult BMI Screening [facility] Start: 05-08-2024 Tobacco Screening Tobacco Screening [facility] Start: 04-14-2024 Adult BMI Screening Adult BMI Screening [facility] Start: 04-14-2024 Tobacco Screening Tobacco Screening [facility] Start: 02-26-2024 End: 04-27-2025 MG Breast - bilateral Diagnostic Bilateral diagnostic mammogram Imaging Routine Breast pain Expected: 02/26/2024 (Approximate), Expires: 04/27/2025 [facility] Work Phone: Comment on above: Expected: 02/26/2024 (Approximate), Expi res: 04/27/2025 Start: 02-26-2024 End: 02-26-2024 Patient encounter procedure 02/26/2024 10:00 AM EST Office Visit [facility] [address] [place] [address] Sanjeev Lopez, DO [address] [place] [address] Arrived [facility] Comment on above: Arrived Start: 01-25-2024 End: 01-25-2024 Admission to same day surgery center 01/25/2024 10:00 AM EDT - 01/25/2024 1:59 PM EDT Surgery [facility] [address] [place] [phone], [address] [place] [address] PANNICULECTOMY [facility] Comment on above: PANNICULECTOMY Start: 01-25-2024 End: 01-25-2024 PANNICULECTOMY PANNICULECTOMY Panniculitis affecting regions of neck and back, site unspecified 01/25/2024 10:00 AM EDT [facility] Start: 01-25-2024 Subsequent hospital visit by physician 01/25/2024 10:00 AM EDT Hospital Encounter [facility] [address] [place] [address] [place] [address] [facility], [address] [place] [address] [facility] Start: 01-03-2024 End: 01-03-2024 Patient encounter procedure [facility] Comment on above: Arrived Start: 12-22-2023 End: 12-22-2023 Patient encounter procedure 12/22/2023 10:00 AM EDT Procedure Visit [facility] Sanjeev Lopez, DO [address] [facility] [address] [place] [address] [facility] Start: 12-06-2023 End: 12-05-2024 C-peptide C-peptide Lab Routine Hormone disorder Expected: 12/06/2023 (Approximate), Expires: 12/05/2024 [facility] Comment on above: Expected: 12/06/2023 (Approximate), Expi res: 12/05/2024 Start: 12-06-2023 End: 12-05-2024 Cortisol free Cortisol, free Lab Routine Hormone disorder Expected: 12/06/2023 (Approximate), Expires: 12/05/2024 [facility] Comment on above: Expected: 12/06/2023 (Approximate), Expi res: 12/05/2024 Start: 12-06-2023 End: 12-05-2024 Glucose [Mass/volume] in Serum or Plasma Glucose, random Lab Routine Hormone disorder Expected: 12/06/2023 (Approximate), Expires: 12/05/2024 [facility] Comment on above: Expected: 12/06/2023 (Approximate), Expi res: 12/05/2024 Start: 12-06-2023 End: 12-05-2024 Insulin, total Insulin, total Lab Routine Hormone disorder Expected: 12/06/2023 (Approximate), Expires: 12/05/2024 [facility] Comment on above: Expected: 12/06/2023 (Approximate), Expi res: 12/05/2024 Start: 12-06-2023 End: 12-05-2024 Serotonin serum Serotonin serum Lab Routine Hormone disorder Expected: 12/06/2023 (Approximate), Expires: 12/05/2024 [facility] Comment on above: Expected: 12/06/2023 (Approximate), Expi res: 12/05/2024 Start: 12-06-2023 End: 12-05-2024 Thyroglobulin Thyroglobulin Lab Routine Hormone disorder Expected: 12/06/2023 (Approximate), Expires: 12/05/2024 [facility] Comment on above: Expected: 12/06/2023 (Approximate), Expi res: 12/05/2024 Start: 12-06-2023 End: 12-05-2024 Thyroglobulin Antibody Thyroglobulin Antibody Lab Routine Hormone disorder Expected: 12/06/2023 (Approximate), Expires: 12/05/2024 [facility] Comment on above: Expected: 12/06/2023 (Approximate), Expi res: 12/05/2024 Start: 12-06-2023 End: 12-05-2024 Thyrotropin [Units/volume] in Serum or Plasma [facility] Comment on above: Ordered: 12/06/2023 Expected: 12/06/2023 (Approximate), Expires: 12/05/2024 Start: 12-06-2023 End: 12-06-2023 Patient encounter procedure 12/06/2023 11:30 AM EDT Procedure [facility] [address] [place] [phone] Sanjeev Lopez, DO [address] [place] [address] [facility] Start: 12-03-2023 Influenza vaccination Influenza Vaccine [facility] Start: 11-29-2023 End: 11-28-2024 DHEA-sulfate DHEA-sulfate Lab Routine Decreased libido Expected: 11/29/2023 (Approximate), Expires: 11/28/2024 [facility] Comment on above: Expected: 11/29/2023 (Approximate), Expi res: 11/28/2024 Start: 11-29-2023 End: 11-29-2023 Patient encounter procedure 11/29/2023 1:50 PM EDT Office Visit [facility] [address] [place] [address] Sanjeev Lopez, DO [address] [place] [address] Arrived [facility] Comment on above: Arrived Start: 07-19-2023 End: 07-19-2023 Patient encounter procedure 07/19/2023 1:45 PM EDT Office Visit [facility] [address] [facility] [address] [place] [address] Vishal Martin, [address] [facility] [address] [place] [address] [facility] Start: 07-17-2023 End: 07-17-2023 Patient encounter procedure 07/17/2023 10:00 AM EDT Office Visit [facility] [address] [place] [address] Jessica Sanjeev, [address] [facility] [place] [address] [facility] Start: 06-12-2023 End: 06-12-2023 Patient encounter procedure 06/12/2023 10:05 AM EDT Office Visit [facility] [address] [facility] [address] [place] [phone] Rohit Smith MD [address] [place] [address] [facility] Start: 05-19-2023 End: 05-19-2023 Patient encounter procedure 05/19/2023 10:15 AM EST Appointment [facility] [address] [place] [phone] [facility] Start: 05-16-2023 End: 05-16-2023 Patient encounter procedure 05/16/2023 1:45 PM EST Office Visit [facility] [address] [facility] [address] [place] [phone] Rohit Smith MD [address] [place] [address] [facility] Start: 05-08-2023 End: 05-08-2023 Patient encounter procedure 05/08/2023 1:30 PM EST Office Visit [facility] [address] [place] [phone] Reny No, FINANCIAL AID COORDINATOR-BOILERMAKER LOFTSMAN [address] [place] [address] [facility] Start: 04-14-2023 End: 04-14-2024 XR Lumbar spine Views W flexion and W extension X-ray spine lumbar ap, lateral, flexion and extension only Imaging Routine Back pain, unspecified back location, unspecified back pain laterality, unspecified chronicity Expected: 04/14/2023, Expires: 04/14/2024 [facility] Work Phone: Comment on above: Expected: 04/14/2023, Expires: Start: 12-02-2022 Influenza vaccination Influenza Vaccine [facility] Start: 12-01-2022 Depression Screening Depression Screening [facility] Start: 11-01-2022 Influenza vaccination Flu vaccine (#1) [facility] Start: 09-03-2022 Adult BMI Follow Up Plan Adult BMI Follow Up Plan [facility] Start: 12-02-2021 Influenza vaccination Flu vaccine (Season Ended) [facility] Start: 11-01-2021 Influenza vaccination Flu vaccine (#1) [facility] Start: 2017 Diabetes screen Diabetes screen [facility] Start: 2012 Screening for malignant neoplasm of cervix [facility] Start: 12-01-2003 Screening for malignant neoplasm of cervix Pap smear [facility] Start: 2001 DTaP,Tdap and Td Vaccines (1 - Tdap) DTaP,Tdap and Td Vaccines (1 - Tdap) [facility] Start: 2001 DTaP/Tdap/Td vaccine (1 - Tdap) DTaP/Tdap/Td vaccine (1 - Tdap) [facility] Start: 2000 Adult BMI Follow Up Plan Adult BMI Follow Up Plan [facility] Start: 2000 Hepatitis C screening Hepatitis C screen [facility] Start: 1994 Depression Screen Depression Screen [facility] Start: 12-01-1987 COVID-19 Vaccine (1) COVID-19 Vaccine (1) [facility] Start: 12-01-1983 Varicella vaccine (1 of 2 - 2-dose childhood series) Varicella vaccine (1 of 2 - 2-dose childhood series) [facility] Start: 06-01-1983 COVID-19 Vaccine (#1) COVID-19 Vaccine (#1) [facility] Endometrial biopsy Endometrial b iopsy Procedures Routine Menorrhagia with regular cycle Abnormal uterine bleeding (AUB) Pelvic pain Ordered: 12/06/2023 [facility] Work Phone: Comment on above: Ordered: 12/06/2023 Estradiol Estradiol Lab Ro utine Hormone disorder Ordered: 12/06/2023 [facility] Comment on above: Ordered: 12/06/2023 Estrone Estrone Lab Rout ine Hormone disorder Ordered: 12/06/2023 [facility] Comment on above: Ordered: 12/06/2023 Ferritin [Mass/volum e] in Serum or Plasma Ferritin Lab Routine Hormone disorder Ordered: 12/06/2023 [facility] Comment on above: Ordered: 12/06/2023 Hemoglobin A1c/Hemoglobin.total in Blood Hemoglobin A1c Lab Routine Hormone disorder Ordered: 12/06/2023 [facility] Comment on above: Ordered: 12/06/2023 Progesterone Progesterone Lab Routine Hormone disorder Ordered: 12/06/2023 [facility] Comment on above: Ordered: 12/06/2023 Sex hormone binding globulin Sex hormone binding globulin Lab Routine Decreased libido Ordered: 11/29/2023 [facility] Comment on above: Ordered: 11/29/2023 T3, reverse T3, reverse Lab Routine Hormone disorder Ordered: 12/06/2023 [facility] Comment on above: Ordered: 12/06/2023 TESTOSTERONE, FREE TESTOSTERONE, FREE Lab Routine Decreased libido Ordered: 11/29/2023 [facility] Work Phone: Comment on above: Ordered: 11/29/2023 Testosterone, free, total Testos terone, free, total Lab Routine Decreased libido Ordered: 11/29/2023 [facility] Comment on above: Ordered: 11/29/2023 Testosterone, free, total Testos terone, free, total Lab Routine Hormone disorder Ordered: 12/06/2023 [facility] Comment on above: Ordered: 12/06/2023 Thyroid peroxidase antibody Thyroid peroxidase antibody Lab Routine Hormone disorder Ordered: 12/06/2023 [facility] Comment on above: Ordered: 12/06/2023 Thyroxine (T4) free [Mass/volume] in Serum or Plasma T4, free Lab Routine Hormone disorder Ordered: 12/06/2023 [facility] Comment on above: Ordered: 12/06/2023 Triiodothyronine (T3 ) Free [Mass/volume] in Serum or Plasma T3, free Lab Routine Hormone disorder Ordered: 12/06/2023 [facility] Comment on above: Ordered: 12/06/2023 Vitamin D 1,25 dihydroxy Vitamin D 1,25 dihydroxy Lab Routine Hormone disorder Ordered: 12/06/2023 [facility] Comment on above: Ordered: 12/06/2023 Payers Date Payer Category Payer Self-pay 2022 [facility] [id number] 2022 [facility] - O [id number] [id number] 2022 Unknown [id number]. 1.13.424. 2.7.3.074030.315 2022 Unknown [id number] 2020 Unknown [id number] 1.2.840.795985.1.13.239. 2.7.3.689136.315 1982 Unknown [id number] 2.16.840.1.551303.3.579. 2.593 1982 Unknown [id number] 2.840.1.980602.3.579. 2.593 1982 Unknown [id number] 2.840.1.656752.3.579. 2.175 1982 Unknown [id number] 2.840.1.877022.3.579. 2.175 1982 Unknown [id number] 2.840.1.245300.3.579. 2.175 1982 Unknown [id number] 2.840.1.501071.3.579. 2.1285 1982 Unknown [id number] 2.0.1.360354.3.579. 2.1285 1982 Unknown [id number] 2840.1.945958.3.579. 2.1285 1982 Unknown [id number] 20.1.599898.3.579. 2.196 1982 Unknown [id number] 20.1.418841.3.579. 2.196 1982 Unknown [id number] 20.1.429752.3.579. 2.196 1982 Unknown [id number] 20.1.176841.3.579. 2.196 1982 Unknown [id number] 05.19.830.1.390442.3.579. 2.196 1982 Unknown [id number] 840.1.316820.3.579. 2.1285 1982 Unknown [id number] 2840.1.799569.3.579. 2.1285 1982 Unknown [id number] 2840.1.407172.3.579. 2.1285 1982 Unknown [id number] 2840.1.813402.3.579. 2.128 1982 Unknown [id number] 2.840.1.226384.3.579. 2.1285 1982 Unknown [id number] 2.840.1.200504.3.579. 2.1285 1982 Unknown [id number] 2.840.1.711227.3.579. 2.1285 1982 Unknown [id number] 2.840.1.364926.3.579. 2.1285 1982 Unknown [id number] 05.19.830.1.981388.3.579. 2.1285 1982 Unknown [id number] .1.804807.3.579. 2. 1982 Unknown [id number] .1.592097.3.579. 2. 1982 Unknown [id number] .1.235151.3.579. 2. 1982 Unknown [id number] .1.723036.3.579. 2.1258 1982 Unknown [id number] 05.19.830.1.444812.3.579. 2.1258 1982 Unknown [id number] 05.19.830.1.355355.3.579. 2.1258 1982 Unknown [id number] 840.1.854445.3.579. 2.1258 1982 Unknown [id number] 840.1.346496.3.579. 2.1258 1982 Unknown [id number] 840.1.737850.3.579. 2.1258 1982 Unknown [id number] 2840.1.311073.3.579. 2.1258 1982 Unknown [id number] 840.1.300622.3.579. 2.1259 1982 Unknown [id number] 2.16.840.1.900141.3.579. 2.1259 1982 Unknown [id number] 2.16.840.1.087660.3.579. 2.1259 1959 Unknown [id number] Unknown [id number] 2.16.840.1.412897.3.579. 2.531 Social History Date Type Detail Facility Start: 06-15-2015 End: 03-31-2022 Tobacco smoking status LAIS Never smoked tobacco [facility] Start: 06-15-2015 End: 03-31-2022 Tobacco use and exposure Smokeless tobacco non-user [facility] Phone: Start: 08-19-2021 End: 01-26-2024 Alcohol intake Current non-drinker of alcohol (finding) [facility] Phone: Start: 05-14-2020 End: 08-19-2021 [facility] Start[facility] 06-15-2015 History SDOH Alcohol Comment rarely [facility] Phone: Start: 1980 Sex Assigned At Not on file [facility] Phone: Start: 08-09-2021 End: 01-03-2022 Exposure to SARS-CoV-2 (event) Not sure [facility] Phone: History of tobacco use Passive smoker [facility] [employer] Phone: Start: 05-14-2020 End: 04-14-2023 Sex Assigned At [facility] Adolescent depressio n screening assessment 0 [facility] Start: 05-04-2023 End: 12-06-2023 Alcohol intake Ex-drinker (finding) [facility] Start: 10-09-2022 Alcohol Comment Alcohol: 1 or 2 drinks on typical day/monthly or less. Caffeine: 1-2 cups/day tea [facility] Start: 1980 Sex Assigned At Female [facility] Start: 09-21-2022 Gender identity Identifies as female gender (finding) [facility] Start: 09-21-2022 Sexual orientation Heterosexual (finding) [facility] Start: 11-06-2014 Sex Female (finding) [facility] Has the electric, [employer], oil, or water company threatened to shut off services in your home in past 12Mo No [facility] Medical Equipment Procedure Code Equipment Code Equipment Origin al Text Equipment Identifier Dates [id number], [id number] Start: 09-14-2023 End: 12-13-2023 Goals Date Patient Goal Desired Activity /State Personal health goal Comment on above: Formatting of this n ote might be different from the original. Evaluation of progress towards goal: johns removal; pain management Clinical Notes 08-19-2021 to 03-22-2024 Caitlyn Logan RN - 03/22/2024 1:59 PM Lance Cantrell LPN - 02/26/2024 10:00 AM Nohemi Liang MD - 01/26/2024 5:57 PM Libia Atkinson LPN - 01/03/2024 10:50 AM EDT Note Date & Type Note Facility 03-22-2024 History of Present illness Narrative [facility] received referral for BRCA testing. Referral faxed to genetics. documented in this encounter [facility] 02-26-2024 History of Present illness Narrative Reason [...] mg, Daily RT Blood Glucose Monitoring Suppl (D-Care Glucometer) w/Device kit 1 kit, Does not apply, Daily, Use four times daily to check FSBS. In the morning prior to breakfast & 1 hour after each meal for a total of 4times daily. Lancets ([employer].comTouch Delica Plus [id number]) misc MONOJECT 3CC SYRINGE 3 ML misc [...] Name Age of Onset Hypertension Maternal Grandfather [place] Heart disease Maternal Grandfather [place] Stroke Maternal Grandfather [place] Cancer Maternal Grandfather [place] Drug abuse Maternal Grandfather [place] Drug abuse Father Tyrese Diabetes Paternal Grandfather . SURGICAL HISTORY Past Surgical History: Procedure Laterality Date APPENDECTOMY 2007 SECTION, LOW TRANSVERSE 04/2019 SECTION, LOW TRANSVERSE 05/07/2017 CHOLECYSTECTOMY 2005 ENDOMETRIAL ABLATION 12/22/2023 IUD INSERTION 2011 Mirena PAP SMEAR 07/07/2021 negative TUBAL LIGATION [...] nursing note reviewed. Exam conducted with a client program manager present. Vitals: Estimated body mass index is [...] Sanjeev Lopez DO documented in this encounter [facility] 01-26-2024 History of Present illness Narrative 01/26/2024 6:12 PM Opened this encounter to order [place] but talked to patient's pharmacy that it was an insurance issue and they are going to fulfill the prescription now. No new orders were placed. Dr. Price made aware. ALFONSO LIANG MD PGY4 Gen Surg [employer] documented in this encounter [facility] 01-14-2024 Note Education Materials Neurology Migraine [...] these instructions at home: Medicines ? Take bouy-rmg-nuxzikl and prescription medicines only as told by [...] Headache and Migraine Patients (CHAMP): headachemigraine.org ? [place] Migraine Foundation: [email or web address].[email or web address] ? National Headache Foundation: [...] health care p (more content not included)... [facility] 01-03-2024 History of Present illness Narrative [...] TAKE 1 TABLET BY MOUTH PREOP Lancets (OneTouch Delica Plus [id number]) misc MONOJECT 3CC SYRINGE 3 ML misc nystatin (Mycostatin) cream Topical, 2 times daily, Dispense cream that does NOT have perfumes added. RealConnex.comTouch Verio test strip Qelbree 200 mg, Oral, [...] Morbid obesity with BMI of 45.0-49.9, adult (CMS/[facility]) PCOS (polycystic ovarian syndrome) Pre-diabetes Rectal bleeding Off and on since 2018 HISTORY PAST MEDICAL HISTORY SOCIAL HISTORY Past Medical History: Diagnosis Date Encounter for gynecological examination (general) (routine) without abnormal findings Fibrocystic breast 05/2022 Frequent headaches Labial cyst Menorrhagia Migraine (CMS/HCC) Chronic Morbid obesity with BMI of 45.0-49.9, adult ([facility]) PCOS (polycystic ovarian syndrome) Pre-diabetes Rectal bleeding Off and on since 2018 Weight gain Social History Tobacco Use Smoking status: Never Smokeless tobacco: Never Substance Use Topics Alcohol use: Not Currently Comment: Alcohol: 1 or 2 drinks on typical day/monthly or less. Caffeine: 1-2 cups/day tea Drug use: Never FAMILY HISTORY Family History Problem Relation Name Age of Onset Hypertension Maternal Grandfather [place] Heart disease Maternal Grandfather [place] Stroke Maternal Grandfather [place] Cancer Maternal Grandfather [place] Drug abuse Maternal Grandfather [place] Drug abuse Father Tyrese Diabetes Paternal Grandfather . SURGICAL HISTORY Past Surgical History: Procedure Laterality Date APPENDECTOMY 2007 SECTION, LOW TRANSVERSE 04/2019 SECTION, LOW TRANSVERSE 05/07/2017 CHOLECYSTECTOMY 2005 ENDOMETRIAL ABLATION 12/22/2023 IUD INSERTION 2011 Mirena PAP SMEAR 07/07/2021 negative TUBAL LIGATION [...] nursing note reviewed. Exam conducted with a client program manager present. Vitals: Estimated body mass index is [...] Sanjeev Lopez DO documented in this encounter [facility] 12-06-2023 History of Present illness Narrative Reason for Appointment: Patient ID: Cindy Dumont is a 43 y.o. female who presents for Endometrial Biopsy and Pre-op Visit Patient presents today for Pre Op/Endometrial Biopsy appointment. Patient is scheduled to undergo Endometrial Ablation with Mariel on 12/22/[address] Lopez at [facility]. MEDICATIONS Current Outpatient Medications Medication Instructions Alcohol Swabs (Alcohol Prep Pad) 70 % pads 1 Pad, Topical, 2 times daily, Use twice daily to check FSBS. Blood Glucose Monitoring Suppl ([employer] Glucometer) w/Device kit 1 kit, Does not apply, Daily, Use four times daily to check FSBS. In the morning prior to breakfast & 1 hour after each meal for a total of 4times daily. diazePAM (Valium) 10 MG tablet TAKE 1 TABLET BY MOUTH PREOP Glucose Blood (Blood Glucose Test) strip 1 strip, In Vitro, 2 times daily Lancets Ultra Thin misc 1 each, In Vitro, 2 times daily, Use to check FSBS twice daily nystatin (Mycostatin) cream Topical, 2 times daily, Dispense cream that does NOT have perfumes added. Tirzepatide (Mounjaro) 10 MG/0.5ML solution pen-injector 0.5 [...] Morbid obesity with BMI of 45.0-49.9, adult ([facility]) PCOS (polycystic ovarian syndrome) Pre-diabetes Rectal bleeding Off and on since 2018 HISTORY PAST MEDICAL HISTORY SOCIAL HISTORY Past Medical History: Diagnosis Date Encounter for gynecological examination (general) (routine) without abnormal findings Fibrocystic breast 05/2022 Frequent headaches Labial cyst Menorrhagia Migraine ([facility]) Chronic Morbid obesity with BMI of 45.0-49.9, adult ([facility]) PCOS (polycystic ovarian syndrome) Pre-diabetes Rectal bleeding Off and on since 2018 Weight gain Social History Tobacco Use Smoking status: Never Smokeless tobacco: Never Substance Use Topics Alcohol use: Not Currently Comment: Alcohol: 1 or 2 drinks on typical day/monthly or less. Caffeine: 1-2 cups/day tea Drug use: Never FAMILY HISTORY Family History Problem Relation Name Age of Onset Hypertension Maternal Grandfather Neri Heart disease Maternal Grandfather Neri Stroke Maternal Grandfather [place] Cancer Maternal Grandfather [place] Drug abuse Maternal Grandfather [place] Drug abuse Father Tyrese Diabetes Paternal Grandfather . SURGICAL HISTORY Past Surgical History: Procedure Laterality Date APPENDECTOMY 2006 SECTION, LOW TRANSVERSE 04/2019 SECTION, LOW TRANSVERSE 05/07/2017 CHOLECYSTECTOMY 2005 IUD INSERTION 2010 Mirena PAP SMEAR 07/07/2021 negative TUBAL LIGATION US PELVIC COMPLETE 11/2004 PCOS REVIEW OF SYSTEMS Review of Systems: Review of Systems Constitutional: Negative. HENT: Negative. Eyes: Negative. Respiratory: Negative. Cardiovascular: Negative. Gastrointestinal: Negative. Genitourinary: Positive for menstrual problem and pelvic pain. Musculoskeletal: Negative. Skin: Negative. Neurological: Negative. All other systems reviewed and are negative. Hematological: Negative. Endocrine: Negative. Allergic/Immunologic: Negative. OBJECTIVE Objective: Physical Exam Constitutional: Appearance: Normal appearance. She is well-developed. Genitourinary: Vulva normal. Cardiovascular: Rate and Rhythm: Normal rate and [...] nursing note reviewed. Exam conducted with a client program manager present. Vitals: Estimated body mass index is 34.28 kg/m as calculated from the following: Height as of 08/02/23: 5' 5 . Weight as of 11/29/23: 206 lb. BP: No LMP recorded. ASSESSMENT & PLAN ICD-10-CM 1. Pre-op examination Z01.818 2. Menorrhagia with regular cycle N92.0 3. Abnormal uterine bleeding (AUB) N93.9 4. Pelvic pain R10.2 EMBX: Patient was placed in dorsal lithotomy position with feet in stirrups. A sterile speculum was placed into the vagina and the cervix was visualized. The cervix was grasped with a single tooth tenaculum. The endometrial pipette was placed through the cervix into the uterus, endometrial curettage was performed and sampling was obtained, endometrial curettings were placed in formalin, and single tooth tenaculum was removed. Excellent hemostasis was assured. All instruments were removed from vagina. Pre Op: Patient is doing well but has complaints of bleeding and pelvic pain. Patient has tried hormone therapy in the past but all attempts to subside patients issues have failed. I have discussed conservative management vs. surgical management with the patient in detail and patient desires surgical management at this time. Patient will undergo Endometrial Ablation with Mariel on 12/22/2023. Surgical consents were signed, mmc was reviewed, and patient is to proceed to [facility] OR. Follow Up: Patient is to follow up between 1-2 weeks post op to assess proper healing and recovery from procedure. Documented by Monique Cantrell LPN on behalf of: Sanjeev Lopez DO documented in this encounter [facility] 11-29-2023 History of Present illness Narrative Reason for Appointment: Patient ID: Cindy Dumont is a 42 y.o. female who presents for discuss procedure (Pt wants to discuss a hysterectomy vs. An ablation ) Patient presents today for Consult appointment. MEDICATIONS Current Outpatient Medications Medication Instructions Alcohol Swabs (Alcohol Prep Pad) 70 % pads 1 Pad, Topical, 2 times daily, Use twice daily to check FSBS. Blood Glucose Monitoring Suppl ([facility] Glucometer) w/Device kit 1 kit, Does not apply, Daily, Use four times daily to check FSBS. In the morning prior to breakfast & 1 hour after each meal for a total of 4times daily. diazePAM (Valium) 10 MG tablet TAKE 1 TABLET BY MOUTH PREOP Glucose Blood (Blood Glucose Test) strip 1 strip, In Vitro, 2 times daily Lancets Ultra Thin misc 1 each, In Vitro, 2 times daily, Use to check FSBS twice daily nystatin (Mycostatin) cream Topical, 2 times daily, Dispense cream that does NOT have perfumes added. Tirzepatide (Mounjaro) 10 MG/0.5ML solution pen-injector 0.5 [...] Morbid obesity with BMI of 45.0-49.9, adult ([facility]) PCOS (polycystic ovarian syndrome) Pre-diabetes Rectal bleeding Off and on since 2018 Weight gain Social History Tobacco Use Smoking status: Never Smokeless tobacco: Never Substance Use Topics Alcohol use: Not Currently Comment: Alcohol: 1 or 2 drinks on typical day/monthly or less. Caffeine: 1-2 cups/day tea Drug use: Never FAMILY HISTORY Family History Problem Relation Name Age of Onset Hypertension Maternal Grandfather Muscoda Heart disease Maternal Grandfather [place] Stroke Maternal Grandfather [place] Cancer Maternal Grandfather [place] Drug abuse Maternal Grandfather [place] Drug abuse Father Tyrese Diabetes Paternal Grandfather . SURGICAL HISTORY Past Surgical History: Procedure Laterality Date APPENDECTOMY 2007 SECTION, LOW TRANSVERSE 04/2019 CHOLECYSTECTOMY 2005 IUD INSERTION 2011 Mirena PAP SMEAR 07/07/2021 negative TUBAL LIGATION US PELVIC COMPLETE 11/2004 PCOS REVIEW OF SYSTEMS Review of Systems: Review of Systems Constitutional: Negative. HENT: Negative. Eyes: Negative. Respiratory: Negative. Cardiovascular: Negative. Gastrointestinal: Negative. Genitourinary: Positive for menstrual problem and pelvic pain. Musculoskeletal: Negative. Skin: Negative. Neurological: Negative. All [...] nursing note reviewed. Exam conducted with a client program manager present. Vitals: Estimated body mass index is 34.28 kg/m as calculated from the following: Height as of 08/02/23: 5' 5 . Weight as of this encounter: 206 lb. BP: 128/74 No LMP recorded. ASSESSMENT & PLAN ICD-10-CM 1. Encounter to discuss procedure Z71.89 2. Menorrhagia with regular cycle N92.0 Pt presents with complaints of heavy periods. Pt desires surgical management. Pt to be scheduled for endometrial ablation- pt had tubal previously. Pt has decreased libido ordered labs to have obtained. Pt to return for preop/embx. Documented by Monique Cantrell LPN on behalf of: Sanjeev Lopez DO documented in this encounter [facility] 08-23-2023 Note Patient Education Ma terials Follows: [...] wine (148 mL (more content not included)... [facility] 06-12-2023 History of Present illness [...] take another few months to subside. Recommended [id number] pain relievers as needed. She is content [...] of the aforementioned history prepared by the [facility] practice provider, and I personally performed the [...] any severe symptoms. documented in this encounter [facility] 05-16-2023 History of Present illness Narrative [facility] Chief Complaint: [...] a snap. She initially followed up with [facility] and was diagnosed with right [...] External notes reviewed: [facility]. Review of test/study reports: I reviewed an x-ray obtained of the right ring finger. There were no acute osseous abnormality such as fracture dislocation. My personal interpretation of tests: I personally viewed and interpreted X-rays from [facility] as above. Xrays done in office today: None. Assessment: 1. Mallet deformity of right ring finger - [facility] - [place], [place] 2. Finger injury, right, initial encounter - [facility] - [place], [place] Plan: I discussed treatment options with [...] with her flexion. documented in this encounter [facility] 05-10-2023 Evaluation note Encounter Date Diagnosis Assessment Notes May, Adult ADHD (attention deficit hyperactivity disorder) (ICD-10 - F90.9) [employer] Other 02-01-2024 History of Present illness [...] finger for about 2 weeks. Went to [facility] due to having numbness in finger and unable to straighten it. Had XR at . On 03/13, pt went to [facility] and had another XR. Unable to get into hand specialist at [facility] until May 16. Continues [...] (DIFLUCAN) 100 mg, Oral, Daily nystatin (Mycostatin) 612776 UNIT/GM powder APPLY TO AFFECTED AREA TOPICALLY [...] normal Pronation: normal Supination: normal Muscle Strength Vegetable Tier: 3/5 Other Erythema: absent Pulse: present Comments: [...] develop for requiring urgent evaluation. Oswaldo Dee FINANCIAL AID COORDINATOR-BOILERMAKER LOFTSMAN [id number] Evaluation note* Encounter Date Diagnosis Assessment Notes Treatment Notes Treatment Clinical Notes Apr, Adult ADHD (attentio n deficit hyperactivity disorder) (ICD-10 - F90.9) [employer] Other 01-10-2024 Evaluation note* Encounter Date Diagnosis Assessment Notes Treatment Notes Treatment Clinical Notes Apr, Adult ADHD (attentio n deficit hyperactivity disorder) (ICD-10 - F90.9) [employer] Other 01-09-2024 Evaluation note* Encounter Date Diagnosis Assessment Notes Treatment Notes Treatment Clinical Notes Apr, Adult ADHD (attentio n deficit hyperactivity disorder) (ICD-10 - F90.9) [employer] Other 01-08-2024 Evaluation note* Encounter Date Diagnosis Assessment Notes Treatment Notes Treatment Clinical Notes Apr, Adult ADHD (attentio n deficit hyperactivity disorder) (ICD-10 - F90.9) [employer] Other 12-07-2023 NotePatient Education Materials Follows: [...] or lying down. General instructions ? Take tmvf-cui-dumdsoz and prescription medicines only as told by [...] by your health care p (more contentnot included)...[id number] note * Encounter Date Diagnosis Assessment Notes Treatment Notes Treatment Clinical Notes Jan, Adult ADHD (attentio n deficit hyperactivity disorder) (ICD-10 - F90.9) [employer] Other 10-02-2023 Evaluation note* Encounter Date [...] in 3 months or sooner if needed. [employer] Other 09-08-2023 Evaluation note* Encounter Date Diagnosis Assessment Notes Treatment Notes Treatment Clinical Notes Dec, Adult ADHD (attentio n deficit hyperactivity disorder) (ICD-10 - F90.9) [employer] Other 09-07-2023 Evaluation note* Encounter Date Diagnosis Assessment Notes Treatment Notes Treatment Clinical Notes Dec, Adult ADHD (attentio n deficit hyperactivity disorder) (ICD-10 - F90.9) [employer] Other 08-30-2023 Evaluation note* Encounter Date [...] Cutaneous candidiasis (ICD-10 - B37.2) Refilled diflucan. [employer] Other 07-11-2023 Hospital Discharge instructions* Discharge Instructions* Bailee Lew APRN - RASHAUN - 10/11/2022 8:08 PM EDT Please call and schedule a follow-up appointment with [facility]. Use an ice pack or bag [...] through Care Everywhere. * RICE: General Info (Salvadorean) * Ankle Sprain (Salvadorean) [facility] Discharge instructions* Instructions* Radha Sanders MD - 08/19/2021 May use ice or heat, whichever feels better. May use [place] for pain. Prednisone as directed. Follow-up with [...] a follow up appointment THANK YOU!!! From [facility] On behalf of the Emergency Department staff at [facility], I would like to thank you for giving us the opportunity to address your health care needs and concerns. We hope that during your visit, our service was delivered in a professional and caring manner. Please keep [facility] in mind as we walk with [...] we did during your visit at [email or web address] and let us know about your experience * Attachments The following attachments cannot be sent through Care Everywhere. * Herniated Disc (Salvadorean) [facility] [employer] Phone: evaluation note* Diagnosis Herniated lumbar intervertebral disc- Primary Displacement of lumbar intervertebral disc without myelopathy [facility] encounter [facility] [employer] Phone: evaluation note* Diagnosis Gastroenteritis- Primary Other and unspecified noninfectious gastroenteritis and colitis documented [facility] [facility] Phone: evaluation note* Diagnosis Sprain of right ankle, unspecified ligament, initial encounter- Primary documented in this [facility] [employer] [facility]* Diagnosis Back pain, unspecified back location, unspecified back pain laterality, unspecified chronicity- Primary documented in [facility] SystemEvaluation noteNo [employer] Other Evaluation note* Diagnosis 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 Pain in finger of right hand Pain in soft tissues of limb documented in this encounter [facility] HealthcareEvaluation note* Diagnosis Herniated lumbar intervertebral disc- Primary Displacement of lumbar intervertebral disc without myelopathy documented in this encounter [facility] [facility] SystemEvaluation note* Diagnosis 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 Finger injury, right, initial encounter documented in this encounter [facility] SystemEvaluation note* Diagnosis Herniated lumbar intervertebral disc- Primary Displacement of lumbar intervertebral disc without myelopathy Lumbar radiculopathy, chronic documented in this encounter [facility] SystemEvaluation noteNo assessment information available [facility] Work Phone: Evaluation note* Diagnosis Lumbar radiculopathy, chronic- Primary Herniated lumbar intervertebral disc Displacement of lumbar intervertebral disc without myelopathy documented in this encounter [facility] SystemEvaluation note* Diagnosis 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 documented in this encounter [facility] SystemEvaluation note* Diagnosis Postop check Follow-up examination, following unspecified surgery Low ferritin level Other nonspecific findings on examination of blood documented in this encounter [facility] HealthcareEvaluation note* Diagnosis Breast pain Mastodynia documented in this encounter [facility] HealthcareEvaluation note* Diagnosis Encounter to discuss procedure Menorrhagia with regular cycle Decreased libido documented in this encounter [facility] HealthcareEvaluation note* Diagnosis Pre-op examination Menorrhagia with regular cycle Abnormal uterine bleeding (AUB) Pelvic pain Hormone disorder Unspecified endocrine disorder documented in this encounter [facility] Healthcare[facility] general Narrative - Reported* Type Description Date Medical History PCOS/insulin resistant Medical History PCOS (polycystic ovarian syndrom e) Medical History Frequent headaches Medical History Gestational diabetes Medical History Prediabetes Surgical History cholecystectomy 2004 Surgical History appendectomy 2006 Surgical History Hospitalization History see surgical hx [employer] Other Hospital Discharge instructions* Attachments The following attachments cannot be sent through Care Everywhere. * Gastroenteritis (Salvadorean) [facility] Work Phone: InstructionsNot on filedocumented in this encounter [facility] SystemInstructionsNot on filedocumented in this encounter [facility] SystemInstructionsNot on filedocumented in this encounter [facility] SystemInstructionsNot on filedocumented in this encounter [facility] SystemInstructions* Pre-Procedure Instructions - Bessie Boswell RN - 01/18/2024 3:45 PM EDT Your surgery/procedure is scheduled at [facility] on 01/25/24 at 10 am Arrival Time 8 am [facility] Address: [address] [place] [address], [id number] Park in the Emergency Center Parking lot. Report to the front worker in the Emergency/Surgery Registration lobby of the hospital. Notify your SURGEON if you develop any illness such as a cold, cough, fever, sore throat, vomiting or are hospitalized between now and your surgery. Please call Pre-Admission Clinic at [phone] if you have any questions prior to surgery. For questions the morning of surgery, call the Pre-op Department at [phone]. Medication Instructions (Do not stop your medications [...] would like to schedule therapy at a [facility] Rehab facility, please call [phone] ([phone]). Do not use lotions, creams, powders, perfume, make up, cologne or after-shaves day of surgery. Remove ALL jewelry including wedding rings, body piercings, hair extensions that contain metal, nail citizen of [place], make-up, and contact lens. You may brush your teeth the morning of surgery, but do not swallow the water. Wear your dentures and partial plates to the hospital (no adhesive). Shower the night the before. If applicable, use the CHG (chlorhexidine gluconate) soap or wipes. Please be advised, [facility] has transitioned to a cashless payment system. [...] RIGHTS AND RESPONSIBILITIES As a patient at [facility], you have the right to: Receive medical care and be informed of who is taking care of you Be treated with dignity and respect Have a family member/labor relations representative of choice and your physician notified of your admission Receive information and actively participate in decisions about your care and treatment Refuse care, treatment and services Decide who may provide your support and speak for you Access protestant and spiritual services Participate in ethical issues [...] of hospital charges and payment methods Patient/patient labor relations representative responsibilities are to: Provide information about health status to facilitate care, treatment and services Follow the treatment, plan, keep appointments and speak up when you do not understand the plan Respect the rights of other patients and healthcare personnel Follow organizational rules and regulations that support quality care and a safe environment Fulfill financial obligations as promptly as possible [facility] SystemInstructionsNot on filedocumented in this encounter [facility] SystemInstructionsNot on filedocumented in this encounter [facility] SystemInstructionsNot on filedocumented in this encounter [facility]iscellaneous Notes* Pre-Procedure Instructions - Bessie Boswell RN - 01/18/2024 3:45 PM EDT Your surgery/procedure is scheduled at [facility] on 01/25/24 at 10 am Arrival Time 8 am [facility] Address: [address] [place] [address], [facility] Park in the Emergency Center Parking lot. Report to the front worker in the Emergency/Surgery Registration lobby of the hospital. Notify your SURGEON if you develop any illness such as a cold, cough, fever, sore throat, vomiting or are hospitalized between now and your surgery. Please call Pre-Admission Clinic at [phone] if you have any questions prior to surgery. For questions the morning of surgery, call the Pre-op Department at [phone]. Medication Instructions (Do not stop your medications [...] weekly, hold 1 week prior to surgery: Joseunkalyanro . Blood thinners: Please contact your prescribing [...] would like to schedule therapy at a [facility] Rehab facility, please call [phone] ([phone]). Do not use lotions, creams, powders, perfume, make up, cologne or after-shaves day of surgery. Remove ALL jewelry including wedding rings, body piercings, hair extensions that contain metal, nail citizen of [place], make-up, and contact lens. You may brush your teeth the morning of surgery, but do not swallow the water. Wear your dentures and partial plates to the hospital (no adhesive). Shower the night the before. If applicable, use the CHG (chlorhexidine gluconate) soap or wipes. Please be advised, [facility] has transitioned to a cashless payment system. [...] RIGHTS AND RESPONSIBILITIES As a patient at [facility], you have the right to: Receive medical care and be informed of who is taking care of you Be treated with dignity and respect Have a family member/labor relations representative of choice and your physician notified of your admission Receive information and actively participate in decisions about your care and treatment Refuse care, treatment and services Decide who may provide your support and speak for you Access protestant and spiritual services Participate in ethical issues [...] of hospital charges and payment methods Patient/patient labor relations representative responsibilities are to: Provide information about health status to facilitate care, treatment and services Follow the treatment, plan, keep appointments and speak up when you do not understand the plan Respect the rights of other patients and healthcare personnel Follow organizational rules and regulations that support quality care and a safe environment Fulfill financial obligations as promptly as possible [facility] Consultation (Routine) - Pending Review Specialty Diagnoses / Procedures Referred By Contact Referred To Contact Physical Medicine and Rehabilitation Diagnoses Herniated lumbar intervertebral disc Lumbar radiculopathy, chronic Reny No APRN-CNP [address] [place] [address] Vishal Martin DO [address] [facility] [address] [place] [address] Referral ID Status Reason Start Date Expiration Date Visits Requested Visits Authorized [id number] Pending Review Specialty Services Required 05/24/2023 05/23/2024 1 1 [facility] for referral (narrative)* Consultation (Routine) - Pending Review Specialty Diagnoses / Procedures Referred By Contac t Referred To Contact Pain Medicine Diagnoses Lumbar radiculopathy, chronic Herniated lumbar intervertebral disc Reny No APRN-CNP [address] [place] [address] Davis Silva MD [address] [place] [address] Referral ID Status Reason Start Date Expiration Date V isits Requested Visits Authorized [id number] Pending Review 06/12/2023 06/11/2024 1 [facility] Advance Directives Documents on File Type Date Recorded Patient Integrity Specialist Expl anation ACP-Advance Directive ACP-Power of Technical Inspector Advance Directive Response Recorded Date/ Time Advance Directives No December 7:20pm Date Activated Date Inactivated Comments 01/25/2024 2:30 PM 01/26/2024 2:17 PM Summary Purpose Family History Relationship Condition Age [...] site of digit, initial encounter Nicole Lockwood, FINANCIAL AID COORDINATOR-BOILER[employer]KER [employer] [address] [place] [address] Rohit Smith MD [address] [phone] Referral ID Status Reason Start Date Expiration Date Visits Requested Visits Authorized [id number] Pending Review Specialty Services Required 3 03/12/2024 1 1 Reason Comments Follow-up Rt ring chuck finge 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 Reason Comments Post-op Visit Reason Comments Breast Problem Reason Comments discuss procedure Pt wants to discuss a hysterectomy vs. An ablation Reason Comments Endometrial Biopsy Pre-op Visit Ordered Prescriptions (unrec ognized section and content) [...] would not scan at bedside. Verified with [facility] prior to administration.) Scheduled Medication Order [...] Care Teams (unrecognized sec tion and content) Awning Hanger Relationship Specialty Start Date End Date Johnathon Winter MD PCP - General Family Medicine 03/08/16 Awning Hanger Relationship Specialty Start Date End Date Johnathon Winter MD PCP - General Family Medicine 03/08/16 Awning Hanger Relationship Specialty Start Date End Date Johnathon Winter MD PCP - General Family Medicine 03/08/16 Awning Hanger Relationship Specialty Start Date End Date Johnathon Winter MD [address] [place] [id number] PCP - General 03/13/23 Awning Hanger Relationship Specialty Start Date End Date Johnathon Winter MD [address] [place] [phone] PCP - General Family Medicine 12/12/22 Awning Hanger Relationship Specialty Start [place] [address] [place] [id number] PCP - General 03/13/23 Awning Hanger Relationship Specialty Start Date End Date Johnathon Winter MD [address] [place] [address] [phone] PCP - General 03/13/23 Awning Hanger Relationship Specialty Start Date End Date Johnathon Winter MD [address] [place] [address] [id number] PCP - General 03/13/23 Team Status: Active Member Role Status Dates Johnathon Winter MD Primary Care Provide r, Attending Provider Active Start: May 10, 2023 Team Status: Inactive Member Role Status Dates Tee Peterson MD Attending Provider Active Start: May 23, 2023 End: May 23, 2023 Awning Hanger Relationship Specialty Start Date End Date Johnathon Winter MD [address] [place] [address] [id number] PCP - General 03/13/23 Team Status: Active Member Role Status Dates Sanjeev Lopez DO Attending Provider Active Start : October 25, 2023 Team Status: Active Member Role Status Dates Sanjeev Lopez DO Attending Provider Active Start : November 29, 2023 Team Status: Inactive Member Role Status Dates Sanjeev Lopez DO Attending Provider Active Start : December 06, 2023 End: December 06, 2023 Awning Hanger Relationship Specialty Start Date End Date Johnathon Winter MD [address] [place] [address], [place] [phone] PCP - General Family Medicine 12/12/22 Awning Hanger Relationship Specialty Start Date End Date Johnathon Winter MD [address] [place] [phone] PCP - General Family Medicine 12/12/22 Awning Hanger Relationship Specialty Start Date End Date Johnathon Winter MD [address] [place] [address] PCP - General 03/13/23 Awning Hanger Relationship Specialty Start Date End Date Johnathon Winter MD [address] [place] [facility] [phone] PCP - General Family Medicine 12/12/22 Awning Hanger Relationship Specialty Start Date End Date Johnathon Winter MD [address] [place] [facility] [phone] PCP - General Family Medicine 12/12/22 Awning Hanger Relationship Specialty Start Date End Date Johnathon Winter MD [address] [place] [facility] [phone] PCP - General Family Medicine 12/12/22 Awning Hanger Relationship Specialty Start Date End Date Johnathon Winter MD [address] [place] [facility] [phone] PCP - General Family Medicine 12/12/22 Awning Hanger Relationship Specialty Start Date End Date Johnathon Winter MD [address] [place] [facility] [address] PCP - General Family Medicine 12/12/22 Awning Hanger Relationship Specialty Start Date End Date Johnathon Winter MD [address] [place] [facility] [phone] PCP - General Family Medicine 12/12/22 Awning Hanger Relationship Specialty Start Date End Date Johnathon Winter MD [address] [place] [address] PCP - General 03/13/23 INFORMATION SOURCE (unrecogn ized section and content) DATE CREATED AUTHOR 07/17/[address] [facility] DATE CREATED AUTHOR AUTHOR'S ORGANIZ ATION 10/12/2022 [facility] DATE CREATED AUTHOR AUTHOR'S ORGANIZ ATION 06/12/2023 [facility] DATE CREATED AUTHOR AUTHOR'S ORGANIZ ATION 12/01/2023 [facility] DATE CREATED AUTHOR AUTHOR'S ORGANIZ ATION 12/14/2023 [facility] DATE CREATED AUTHOR AUTHOR'S ORGANIZ ATION 01/04/2024 [facility] DATE CREATED AUTHOR AUTHOR'S ORGANIZ ATION 01/26/2024 [facility] DATE CREATED AUTHOR AUTHOR'S ORGANIZ ATION 01/28/2024 [facility] DATE CREATED AUTHOR AUTHOR'S ORGANIZ ATION 02/28/2024 [facility] EPIC Goals (unrecognized section [...] BE BASED ON THE PRIMARY CLINICAL RECORDS. [employer] provides no warranty or guarantee of the accuracy or completeness of information in this document.
[2024-04-01 16:37] LABS: Estimated Average Glucose 97 mg/dL
[2024-04-01 16:49] LABS: Free T3 2.38 pg/mL (2.18-3.98); Glucose 80 mg/dL (74-106); Thyroid Stimulating Hormone 1.271 uIU/mL (0.358-3.740)
[2024-04-01 17:07] LABS: Free T4 1.03 ng/dL (0.76-1.46)
[2024-04-02 04:06] LABS: Estradiol 96.8 pg/mL (.); Progesterone 4.4 ng/mL (.); Vitamin B12 336 pg/mL (232-1245)
[2024-04-04 12:07] LABS: C-Peptide, Serum 2.3 ng/mL (1.1-4.4); Insulin 9.3 uIU/mL (2.6-24.9)
[2024-04-04 13:08] LABS: Thyroid Peroxidase (TPO) Ab <9 IU/mL (0-34)
[2024-04-04 15:08] LABS: Estrone, Serum 57 pg/mL (.)
[2024-04-06 02:07] LABS: Testosterone 17 ng/dL (4-50)
[2024-04-06 14:11] LABS: Reverse T3, Serum 23.1 ng/dL (9.2-24.1)
== END 2024-04-01 11:45 | disposition home or self-care (01) ==
LOC: LAB 11:45
PROVIDERS: PCP Family Medicine; Visit Provider Obstetrics & Gynecology
DX: E34.9 Endocrine disorder, unspecified (principal)
CPT/HCPCS: 36415; 82306; 82530; 82607; 82627; 82670; 82679; 82728; 82947; 83036; 83525; 84144; 84260; 84270; 84402; 84403; 84432; 84436; 84439; 84443; 84481; 84482; 84681; 86376; 86800

== ENCOUNTER 2024-04-15 09:51 | Outpatient (OUT) | payer BC, SELFPAY ==
--- OUTSIDE RECORDS SUMMARY | 2024-04-15 10:05 | XMS_ITS | CCD ---
Author Organization [facility] Care Team Providers Care Retail Sales Professional Name Role Phone Laura SÁNCHEZ, Johnathon Primary Care Provider [phone] JESSICA ., DR ROMERO Admitting Unavailable JESSICA ., DR ROMERO Attending Unavailable REQUEST, DR NONE LISTED Primary Care Unavaila ble JESSICA ., DR ROMERO Consulting Unavailable Tee Peterson Consulting Unavailable JESSICA ., DR ROMERO Admitting Unavailable JESSICA ., DR ROMERO Attending Unavailable REQUEST, DR NONE LISTED Primary Care Unavaila ble JESSICA ., DR ROMERO Consulting Unavailable Laura SÁNCHEZ, Johnathon Primary Care Provider JOHNATHON WINTER Primary Care Unavailable ROXIE GARCIA Attending Unavailable JOHNATHON WINTER Primary Care Unavailable SANCHEZ AGUSTIN Attending Unavailable JOHNATHON WINTER Primary Care Unavailable TEO SAN Attending Unavailable Johnathon Winter Unavailable Johnathon Winter MD Primary Care Provider Scottie Lyn Unavailable Johnathon Winter MD Primary Care Provider [phone] MD Tee Peterson Attending Provider [phone] ROHIT LARKIN Attending Unavailable JOHNATHON WINTER Referring [...] Care Unavailable DO Sanjeev Lopez Attending Provider Tee Peterson Admitting Unavailable Tee Peterson Attending Unavailable Jessica, Sanjeev Attending Unavailable Jessica, Sanjeev Admitting Unavailable WINTER, JOHNATHON E Referring Unavailable WINTER, JOHNATHON E Primary Care Unavailable PALAKODETI, SEBASTIEN Admitting Unavailable PALAKODETI, SEBASTIEN Attending Unavailable PALAKODETI, SEBASTIEN Referring Unavailable [...] Primary Care Unavailable Santy Mckeon Admitting Unavailable JESSICA, SANJEEV Attending Unavailable OSWALDO DEE Attending Unavailable JESSICA, SANJEEV Attending Unavailable JESSICA, SANJEEV Attending Unavailable ROBERT URRUTIA Attending Unavailable JESSICA, SANJEEV Referring Unavailable JESSICA, SANJEEV Attending Unavailable OSWALDO DEE Attending Unavailable JESSICA, SANJEEV Attending Unavailable JESSICA, SANJEEV Attending Unavailable JESSICA, SANJEEV Attending Unavailable RENY NO Attending Unavailable WINTER, JOHNATHON E Referring Unavailable WINTER, JOHNATHON E Primary Care Unavailable MARTÍN ORTEGA Attending Unavailable WINTER, JOHNATHON E Referring Unavailable WINTER, JOHNATHON E Primary Care Unavailable NO, RENY Referring Unavailable WINTER, JOHNATHON E Primary Care Unavailable NO, RENY Referring Unavailable WINTER, JOHNATHON E Primary Care Unavailable MARTÍN ORTEGA Attending Unavailable WINTER, JOHNATHON E Referring Unavailable WINTER, JOHNATHON E Primary Care Unavailable JORDANMARTÍN Attending Unavailable WINTER, JOHNATHON E Referring Unavailable WINTER, JOHNATHON E Primary Care Unavailable Allergies Allergy Classification Reported Allergen(s) Allergy Type Date of Onset Reaction(s) Facility (17 sources) Topiramate; Translations: [TOPIRAMATE] Propensity to adverse reactions 4 Swelling [facility] (3 sources) topiramate Drug Allergy 4 Swelling [facility] Work Phone: (4 sources) Adhesive agent; Translations: [ADHESIVE] Propensity to adverse reactions to drug (disorder) 4 Rash [facility] Rep[facility] Medications Current Medications [...] sources) Central Nervous System Stimulant Start: 11-22-2023 End: 01-18-2025 take 1 capsule by mouth in the morning, then take 1 capsule by mouth every twenty-four hours amphetamine-dextroamphetamine XR (Adderall XR) 30 MG 24 hr capsule Take 30 mg by mouth in the morning. 11/22/2023 12/20/2024 Active Start: 09-18-2023 End: 04-11-2024 take 1 tablet by mouth twice daily Dextroamphetamine-Amphetamine 30 mg tabl et Discontinued 30 MG PO Twice daily 60 October 25, 2023 April 11, 2024 10:03am Start: 06-21-2023 End: 06-21-2023 take 1 tablet by mouth twice daily Dextroamphetamine-Amphetamine 30 mg tabl et Discontinued 30 MG PO Twice daily June 20, 2023 11:00pm June 21, 2023 2:09pm Start: 04-19-2023 take 1 tablet by surendra th every twelve hours Adderall 30 MG 1 tablet Orally Twice a d ay for 30 days Apr, Active Start: 01-02-2023 End: 11-29-2023 take 1 tablet by mouth once daily in the evening as needed Dextroamphetamine-Amphetamine 20 mg tabl et Discontinued 20 MG PO Daily June 22, 2023 August 04, 2023 8:13am in the pm as needed Blood Glucose Monitoring Suppl (D-Care Glucometer) w/Device kit (15 sources) Start: 09-20-2023 End: 09-19-2024 Blood Glucose [...] Active isopropyl alcohol 0.7 ml/ml medicated pad (12 sources) Start: 12-24-2023 Alcohol Swabs (B-D SINGLE USE SWABS REGULAR) pads 12/24/2023 Active Start: 09-14-2023 End: 12-13-2023 Alcohol Swabs (Alcohol Prep Pad) 70 % pads Indications: Pre-diabetes Apply 1 Pad topically in the morning and 1 Pad before bedtime. Use twice daily to check FSBS.. 180 each 3 09/14/2023 12/13/2023 Active losartan potassium 50 mg oral tablet (1 source) Angiotensin 2 Receptor Isaak Start: 04-11-2024 take 1 tablet by mouth once daily Losartan 50 mg tablet Active 50 MG PO daily April 11, 2024 12:00am magnesium glycinate 100 mg magnesium capsule (3 [...] Active MONOJECT 3CC SYRINGE 3 ML misc (6 sources) Start: 01-02-2024 MONOJECT 3CC SYRINGE 3 ML misc 01/02/2024 Active Mounjaro 10 MG/0.5ML solution auto-injector (4 sources) Start: 01-05-2024 inject 0.5 mL by subcutaneous injection every week Mounjaro 10 MG/0.5ML solution auto-injector Indications: Pre-diabetes INJECT 0.5 MLS SUBCUTANEOUSLY ONCE WEEKLY 2 mL 3 01/05/2024 Active mounjaro 10 mg/0.5ml solution pen-injector (6 sources) Mounjaro 10 MG/0 .5ML as directed Subcutaneous Active MOUNJARO 7.5 mg/0.5 mL pen injector (8 sources) Start: 02-27-2023 inject 7.5 mg by subcutaneous injection every week MOUNJARO 7.5 mg/0.5 mL pen injector Inject 7.5 mg under the skin once a week. 02/27/2023 Active Start: 02-27-2023 inject 7.5 mg by sub cutaneous injection every week MOUNJARO 7.5 mg/0.5 mL pen injector Inject 7.5 mg under the skin once a week. 0 02/27/2023 Active nystatin 208953 unt/ml topical cream (20 sources) Polyene Antifungal [...] 04/14/2023 Active Start: 04-14-2023 nystatin (Myco statin) [id number] UNIT/GM powder Indications: Skin irritation APPLY TO [...] days 20 tablet 0 08/19/2021 08/29/2021 Active Ibs-Ols-AV-Fish Oil ([facility] GUMMY) 0.4-113.5 MG CHEW (2 sources) Vit-Min -FA-Fish Oil ([facility] GUMMY) 0.4-113.5 MG CHEW Take 2 Units by mouth daily 0 Active 5 ml sodium chloride 9 mg/ml injection (2 sources) Start: 01-03-2022 sodium chlorid e flush 0.9 % injection 10 mL Start: 01-03-2022 End: 01-03-2022 0.9 % sodium chloride bolus Tirzepatide (1 source) Start: 04-11-2024 Tirzepatide 10 mg/0.5 mL pen injector Active MG SUBCUT As Directed April 11, 2024 12:00am FreeTextSig: as directed Subcutaneous; Note: Source Status: Taking; Provider: jessica romero Tirzepatide (Mounjaro) 10 MG/0.5ML solution pen-injector (11 [...] (Qelbree) 200 MG capsule sustained-release 24 hr (6 sources) take 1 capsule by mouth at [...] (20 sources) Central Nervous System Stimulant Start: 3 End: 4 take 1 capsule by mouth once daily Lisdexamfetamine 50 mg capsule Discontinued 50 MG PO Daily June 22, 2023 June 23, 2023 8:10am Start: 2022 take 1 capsule by [facility] every twenty-four hours Vyvanse 30 MG 1 [...] foot] Onset: 10-06-2022 04-14-2023 Chronic Anxiety disorders (4 sources) Anxiety; Translations: [Anxiety disorder, unspecified] Onset: 01-03-2024 01-03-2024 Chronic Attention-deficit, conduct, and disruptive behavior disorders (14 sources) Adult attention deficit hyperactivity disorder ; Translations: [Attention-deficit hyperactivity disorder, unspecified type] 06-22-2023 Chronic Attention-deficit, conduct, and disruptive behavior disorders (12 sources) Attention-deficit hyperactivity disorder, unspecified type; Translations: [Attention deficit disorder with hyperactivity] Chronic Attention-deficit, conduct, and disruptive behavior disorders (3 sources) Attention deficit hyperactivity disorder, predominantly inattentive type; Translations: [Attention-deficit hyperactivity disorder, predominantly inattentive type] Onset: 11-22-2023 11-22-2023 Chronic Attention-deficit, conduct, and disruptive behavior [...] Chronic Other nutritional; endocrine; and metabolic disorders (17 sources) Morbid obesity; Translations: [Morbid (severe) obesity [...] adult] Onset: 01-24-2017 01-24-2017 Unclassified (1 source) Panniculitis affecting regions of neck and back, site unspecified [M54.00] Onset: 01-25-2024 Unclassified (1 source) Consult Onset: 06-06-2023 Past [...] Episodic Other nutritional; endocrine; and metabolic disorders (12 sources) Weight increased; Translations: [Abnormal weight gain] Onset: 10-06-2022 10-06-2022 Episodic Residual codes; unclassified (2 sources) Reduced libido; Translations: [Decreased libido] 11-29-2023 Episodic Residual codes; unclassified (1 source) Unspecified symptoms and signs involving general sensations and perceptions; Translations: [Unspecified symptoms and signs involving general sensations and perceptions] Onset: 06-06-2023 Episodic Spondylosis; intervertebral disc disorders; other back problems (11 sources) Backache; Translations: [Dorsalgia, unspecified] Onset: 04-14-2023 04-14-2023 Episodic Unclassified (9 sources) Onset: 09-03-2021 09-03-2021 Results Test Name Value Interpretation Reference Range Facility Free testosterone measuremen t by LC-MS/MSon 04-01-2024 Testosterone Free [Mass/Vol] Free testosterone measurement by LC-MS/MS 0.0-4.2 [facility] Comment on above: Performed at: [facility] [employer] [address] [id number] Director: Theron Roblero PhD, Phone: [phone] at: [facility] [id number] Director: Katelynn Macdonald MD, Phone: [phone] Glucose mean value [Mass/vol ume] in Blood Estimated from glycated hemoglobinon 04-01-2024 Average glucose Estimated from glycated hemoglobin (Bld) [Mass/Vol] Glucose mean value [Mass/volume] in Blood Estimated from glycated hemoglobin [facility] Laboratory - Chemistry and C hemistry - challengeon 04-01-2024 Cobalamin (Vitamin B12) [Mass/Vol] 336 pg/mL [id number] [facility] Comment on above: Performed at: [employer] [place], [place] [id number] Director: Theron Roblero PhD, Phone: [phone] Ferritin [Mass/Vol] 11.0 ng/mL 8.0-252.0 [facility] Free T4 [Mass/Vol] 1.03 ng/dL 0.76-1.46 [facility] Glucose [Mass/Vol] 80 mg/dL 74-106 [facility] T4 [Mass/Vol] 9.30 ug/dL 4.80-13.90 [facility] TSH Qn 1.271 m[IU]/L 0.358-3.74 0 [facility] Laboratory - Hematology and Cell countson 04-01-2024 HbA1c (Bld) [Mass fraction] 5.0 % 4.5-6.2 [facility] Comment on above: ADA RECOMMENDED LIMI T 4.0 - 6.0ADA THERAPEUTIC TARGET < 7.0ACTION SUGGESTED> 7.0 MLR HEMOGLOBIN A1Con 024 Glucose [Mass/Vol] 97 mg/dL [facility] HbA1c (Bld) [Mass fraction] 5 % 4.5 - 6.2 % [facility] Comment on above: ADA RECOMMENDED LIMI T 4.0 - 6.0 ADA THERAPEUTIC TARGET < 7.0 ACTION SUGGESTED > 7.0 [facility] No Panel Informationon 04-01 25-Hydroxy Vitamin D Total 22.2 ng/mL [facility] Comment on above: <20 ng/mL Vit D defi cient20-<30 ng/mL Vit D npvqymiyavuh44-360 ng/mL Vit D sufficient>100 ng/mL Potential Toxicity C-Peptide 2.3 ng/mL 1.1-4.4 [facility] Comment on above: C-Peptide reference interval is for fasting patients. Dehydroepiandrosterone Sulfate 122.0 ug/dL 57.3-279.2 [facility] Free Triiodothyronine 2.38 pg/mL 2.18-3.98 [facility] Reverse Triiodothyronine (T3) 23.1 ng/dL 9.2-24.1 [facility] Comment on above: This test was develo ped and its performance characteristicsdetermined by [employer]. It has not been cleared orapproved by the Food and Drug Administration.Performed at: - [facility] [id number] Director: Katelynn Macdonald MD, Phone: [phone] Sex Hormone Binding Globulin 119.0 nmol/L 24.6-122.0 [facility] Comment on above: Performed at: [facility] [address] [id number] Director: Theron Roblero PhD, Phone: [phone] Testosterone Level 17 ng/dL 4-50 [facility] Plasma serotonin measurement (mass/volume)on 04-01-2024 Serotonin (P) [Mass/Vol] Plasma serotonin measurement (mass/volume) 31-207 [facility] Comment on above: This test was develo ped and its performance characteristicsdetermined by [employer]. It has not been cleared orapproved by the Food and Drug Administration.Performed at: [facility] [employer] [id number] Director: Katelynn Macdonald MD, Phone: [phone] Serum estrone measurementon 04-01-2024 E1 [Mass/Vol] Serum estrone measurement . [facility] Comment on above: Range Adult (Premeno pausal) 27 - 231 Menstrual Cycle (1-10 days) 19 - 149 Menstrual Cycle (11-20 days) 32 - 176 Menstrual Cycle (21-30 days) 37 - 200 Adult (Postmenopausal) 0 - 125Performed at: [facility] [employer] [id number] Director: Katelynn Macdonald MD, Phone: [phone] Serum or plasma estradiol (E 2) measurement (mass/volume)on 04-01-2024 E2 [Mass/Vol] Serum or plasma estradiol (E2) measurement (mass/volume) . [facility] Comment on above: Adult Female Range F ollicular phase 12.5 - 166.0 Ovulation phase 85.8 - 498.0 Luteal phase 43.8 - 211.0 Postmenopausal <6.0 - 54.7 1st trimester 215.0 - >4300.0Roche ECLIA methodology Serum or plasma insulin mariam urement (units/volume)on 04-01-2024 Insulin Qn Serum or plasma insu stephanie measurement (units/volume) 2.6-24.9 [facility] Comment on above: Performed at: [facility] angelina [address] [id number] Director: Theron Roblero PhD, Phone: [phone] Serum or plasma progesterone measurement (mass/volume)on 04-01-2024 Progesterone [Mass/Vol] Serum or plasma progesterone measurement (mass/volume) . [facility] Comment on above: Follicular phase 0.1 - 0.9 Luteal phase 1.8 - 23.9 Ovulation phase 0.1 - 12.0 First trimester 11.0 - 44.3 Second trimester 25.4 - 83.3 Third trimester 58.7 - 214.0 Postmenopausal 0.0 - 0.1Performed at: [facility] [employer] [facility] RahwayCxhlmd[address] [place], [place] [id number] Director: Theron Roblero PhD, Phone: [phone] TPO [facility] 04-01-2024 Thyroid Peroxidase Antibodies <9 [IU]/mL 0-34 [facility]globulin [facility] Anti-Thyroglobulin Antibody 1.0 [IU]/mL Abnormal 0.0-0.9 [facility] Comment on above: Thyroglobulin Antibo dy measured by Sarah CoulterMethodologyIt should be noted that the presence of thyroglobulinantibodies may not be pathogenic nor diagnostic, especiallyat very low levels. The assay digital asset coordinator has found thatfour percent of individuals without evidence of thyroiddisease or autoimmunity will have positive TgAb levels upto 4 IU/mL.Performed at: [employer] [facility] [place], [place] [id number] Director: Theron Roblero PhD, Phone: [phone] BASIC METABOLIC PANLon 01-25 Anion gap [Moles/Vol] 5 mmol/L Normal 5-15 [facility] Comment on above: Performed By: #### C VIANEY, BMP #### [facility] ([id number]) [address] [place] [address] Calcium [Mass/Vol] 8.1 mg/dL Low 8.5-10.5 [facility] Comment on above: Performed By: #### Raul WINTERS, BMP #### [facility] ([id number]) [facility] [place] [address] Chloride [Moles/Vol] 107 mmol/L Normal 98-109 [facility] Comment on above: Performed By: #### Raul WINTERS, BMP #### [facility] ([id number]) [address] [place] [address] CO2 [Moles/Vol] 26 mmol/L Normal 22-32 [facility] Comment on above: Performed By: #### C BC, BMP #### [facility] ([id number]) [address] [place] [address] Creatinine [Mass/Vol] 0.89 mg/dL Normal 0.40-1.00 [facility] Comment on above: Result Comment: METH OD TRACEABLE TO IDMS STANDARD Performed By: #### C VIANEY, BMP #### [facility] ([id number]) [address] [place] [address] GFR/1.73 sq M.predicted among non-blacks MDRD (S/P/Bld) [Vol rate/Area] 83 mL/min/{1.73_m2} Normal >59 [facility] Comment on above: Result Comment: Reported eGFR is based on the CKD-EPI 2020 equation that does not use a race coefficient. Performed By: #### C VIANEY, BMP #### [facility] ([id number]) [address] [place] [address] Glucose [Mass/Vol] 114 mg/dL High 65-99 [facility] Comment on above: Performed By: #### C BC, BMP #### [facility] ([id number]) [address] [place] [address] Potassium [Moles/Vol] 4.1 mmol/L Normal 3.5-5.0 [facility] Comment on above: Performed By: #### C BC, BMP #### [facility] ([id number]) [address] [place] [address] Sodium [Moles/Vol] 138 mmol/L Normal 134-146 [facility] Comment on above: Performed By: #### C BC, BMP #### [facility] ([id number]) [address] [place] [address] Urea nitrogen [Mass/Vol] 15 mg/dL Normal 5-23 [facility] Comment on above: Performed By: #### C BC, BMP #### [facility] ([id number]) [address] [place] [address] COMPLETE BLOOD COUNTon 01-25 Erythrocyte distribution width (RBC) [Ratio] 14.5 % Normal 11.5-15.0 [facility] Comment on above: Performed By: #### C BC, BMP #### [facility] ([id number]) [address] [place] [address] Hematocrit (Bld) [Volume fraction] 30.0 % Low 35-47 [facility] Comment on above: Performed By: #### C VIANEY, BMP #### [facility] ([id number]) [facility] [place] [address] Hemoglobin (Bld) [Mass/Vol] 9.9 g/dL Low 11.7-15.5 [facility] Comment on above: Performed By: #### C VIANEY, BMP #### [facility] ([id number]) [facility] [place] [address] MCH (RBC) [Entitic mass] 27.8 pg Normal 27-34 [facility] Comment on above: Performed By: #### C BC, BMP #### [facility] ([id number]) [facility] [place] [address] MCHC (RBC) [Mass/Vol] 33.2 g/dL Normal 32-36 [facility] Comment on above: Performed By: #### C BC, BMP #### [facility] ([id number]) [address] [place] [address] MCV (RBC) [Entitic vol] 84 fL Normal 80-100 [facility] Comment on above: Performed By: #### C BC, BMP #### [facility] ([id number]) [address] [place] [address] Platelet mean volume (Bld) [Entitic vol] 7.7 fL Normal 7-12 [facility] Comment on above: Performed By: #### C BC, BMP #### [facility] ([id number]) [address] [place] [address] Platelets (Bld) [#/Vol] 267 10*3/uL Normal 150-450 [facility] Comment on above: Performed By: #### C BC, BMP #### [facility] ([id number]) [address] [place] [address] RBC COUNT 3.58 X10E12/L Low 3.80-5.20 [facility] Comment on above: Performed By: #### C BC, BMP #### [facility] ([id number]) [facility] [place] [address] WBC (Bld) [#/Vol] 15.6 10*3/uL High 4.0-11.0 [facility] Comment on above: Performed By: #### C BC, BMP #### [facility] ([id number]) [facility] [place] [address] Coding Summary 01-26-2024 Coding Summary [facility] DhoowgquBGa6vVk+PGhlYWQ+ PF3XUFMoP74tlVPqfT1vX7BG TElOSywgQVBQTElOSyIgbmFt WH0evENgAHBz IC8+LU6xYKCjQsfyfUSjm9R5 tMN9C86ryo8gWGifjWV0JCDj GsDwufhfy3nhvBj4DIugVloh OyBt LCMrgL89RNU2sW35Cd07eHGx tVYzi3aziYt9OgQqKYMrNZE8 mNemDYhrb8UgSPCwA56yjVDw c2U6 TRKmaJyypRHxDcDvlTG2pU0j CPiupcdlc6owlazwDhx9mj73 sEHnb9Z4mJS6L4UdumU7OQOv bGQg PflbiCRQjI5rgkbvd5jwxsdn SeVvKOXaLAz7VTg2BTFowVbp JkAePB46EXX6QNPmalGtR7Lc LWFs vCtfClA5i7N0Fr0EP0SVLoxg J5VCSBFGWOtvoAH+QY47jf89 L8UnLqbvWng3IIOoZUB1lPD0 aD0n QDEnRKjcz2C4mHT7Z3ZbmyVd nt8ps6iuHOMaJKryR26nsONv m7A1IAVglIA4GFSxwVlcIjUs aG93 Oyc+EAXsfGcjn3AeRxzet9hd j1cvuJz8SztgPNXlboTezDir OVS5e1HkGs4xJUOmdWI0qZN9 aD0i FdDcUqM0ACbgN227WjDbmFWy AwpbF72dK2OtaTT+PHRyPjx0 MPWglZhuSZ7gO6NkFNBhadmu bGVm hIrpFY8gTGDpvatgXMOsbI7b FCHeO6x9UvBtVhM5WEpwT6Ch FUWrijukGn15yX2kWtYfMzW6 MGlu R0RqrxT6KKKepSWuKMtmEUK0 I60tf5Y2DHRtZXNdSCW2gNH6 zK4qsIktnihbuTOadCikepHz dGlj JLduAHwhQ253RJMtdVbiVxDb ZGluZyBEYXRlOiAgMTAvMjUv MjAyNDwvdGQ+SXAeBWH9jUth PSAn oMPiDTeyHv2rdBnysFgaYJ5h LFZezotoAXDhmS7lNGDrxIUp pXxeYK0dCZYtzrwwk594SyFz MHB0 BXIlcEHkN6CqbE8tHeFyFHJf NQNjR7FwiAYrWLsrN918BLuw PkS4ZITwpgLuR1RaNJTvvNto OiB0 p9F5Hp4Ic0QwuzlwT6LyoNUy MxZjHhbdSMu7S3QrXzcfeWE+ YG78HAAzUH12GAw5VCQ4fKjj PSdi XLHdH5QznF1qAzHeELWfPORk Oyc+PHRhYmxlIHdpZHRoPScx UDVdVtSpsXxiVP2cRq8mKPZm LWNv wIvlmMOnSzTxw0qaAJDcVCai VK9zeVjiO5EfkRV5ZKEtu2z7 Ts12Q42lZ3XfuPE+PGNvbCB3 aWR0 qL4qKkRbZxR7QRpfT115UtWo jVJoQanra5bku9qjvLs1HbO0 OAXaynTsdUxvTLS7q6VwWa54 Y29s IHdpZHRoPSIxNSUiIHZhbGln dg1cmB6eWc6+VGFqvIU6zPO0 oI5lVdDnYuM0XNikE419DtUj cCIv Kkdjs6xlt2wokVh5RsVhUZAk sfYtaSalXHN9s0MkGv15H1Rd mKrna3PlQmf7yf38dGUso3W0 bGU9 D2WvETDhesuekDVduXpxYZ1w PMGxtophIJFpsO3pEXHdL8d8 JbYuGwN3XScnI3UuwiO7CVEo bGQg NGKwvGARsZ1ykqduo5fsxyyn KnGaBCNkGOx1FUx4DYUyuDwe EvCgVES4YaT9CWQ6yWTeaF6a bGln qocwnF8rFxc+PAS0pMBwzJZV SA2xOrqhmDA+VFPuADA4yMii NFtrKGEmzF3xKKBiB8x9UrCq LjA1 VGpmC9EotuI4YNIzhSGlWKOm aEOOhH2puopoz3tgbboePdZx ZVWjJEq7DRp1LPLxaIfuLpHo ZWZ0 StT4CWN2rIJvzI5uiYmgfies zI2mGay+EusklAazTCY5XKq9 P8SkXzm3PBPksVglNL5knKLk ZGlu Tr3tlMjtpEhcGB1jQZDkqxji r771KcIdq4rrDUPqsQLxUSey FRB0L18xk9O1IWStWAOlCUV2 dGV4 nZ3nkLoqdjlckLVqsHdsrcLp bYjvVPefRJlnY172HNXoiOck MqWjUOu9P7YpSku8MHBfnKbg ZT0n kSMaVTloNy0uhFdjnMhyGB5h GCSodvhpi588OpTtz4iuYQKf aILlZJbiUQX9P30wd5R6BWLt MDAw OIZ4tTT2iX9ofHyrrrjmlFSn iWribyYmqYrdUHyeOEetU275 PLWzcKqjHvLcvOs1M0ReNog3 ZCBz kWciJT1vyZBzJBekNo0viUrl cWfcGQ6nGFNftfzyc659TlBc j3baNIWicEFzIKraGYH9Y01b b3I6 JJJiLMDfPCZ1eRJ4dH4wzLlu bjogbGVmdDsgdmVydGljYWwt ZDiiU733BHKyuWkuIkFzyMkd bnQg YSlzOWj2M0HxIsgmbXS+PC90 DQQjOG02kYHtbMHjz2cfkJm9 PbMnYSWwBOW7bPvuUQeaj4Lz ZXIt V09iuMFfq5K6KWPnfTcnoZEl KqQgmLA1mU9aGZmhnqucv8gi zgobAsmvp7opnd57uX74D29n IHdp HKAwAJHrKVOaUBHjeTjaue2d gI2xHa7+LULdiRC0aGO3yH7w HOIzRnK3GSclB951XlLjrLYa Pjxj j3dtd5pypJa7FeE4KWDfngJn vGgmACO2k1LrUl11F25qRMii IQGoGDYzDSYzGTIzcRloer7p dG9w Ii8+NWZfpWC9nAW2tZ1tRnZh VbP7NLxfM314VcHajVWhZvmk J33zN8OziMO+FITwKzj5XHDj dHls PC2ukEZsSKtfSc0wMGK5PfLd XeExHVmrK7DkQHEhzvpzidsr fLA8WBAvMKKaiA80Id7abSmb MTBw zOCZnV2fnespo9xsxfzhDuOo WTMiCWt1NJq0XRXbeUidZmNw QKO6LvZ6USS5wWVuoK5khNer bjog hD4fB4AwRDUydvveDs86kJ2t CwEqZkP6LGciMuh+N22RW6fR LCBBTUFOREEgREFXTjwvdGQ+ PHRk QCA7mSduEOmzKMEelY4sLUVj A2j1KoLhLgL5EYrtG0DzUBJf oblzMl65xU6vOdBhAeE1UZqj O2Zv oyV3WGUxyJEeWGvmKZM4R40k o4T5BSKxTLImFDU6jYJ9xY7l bGlnbjogbGVmdDsgdmVydGlj YWwt GArdK757BHVcuIlaDfB1QsAp YgC4GLS0E0FcUfv4NVYozNxw MT7wmOFoGDctLs7nzPaldQyi MC4w UGWsgesjUFVknN1aUAQixRCz eKlbDP1oTWAkzehxg751YtDd KOG0XIYzbZQmA3VgtP6lOlNp MDAw LBSzP9RpxSTmKXizE392YOmr GbM4RVWbqaYbL2FiIPVjoGsf OyB7y9Z9Pa71WCKYZLOhkviq dGQ+ ASUpRPY8zRxhLQikYXHecD9b AIRxW1a7KrNuStQ6TZjmT8Au CJFxmkniEl69kB9oDeLzOhP4 MGlu F8GzfqR1QOUszQShTQepXXN5 K43eg6Z9XRTzLJXzKPD2jWR4 xT9ylCrvsaiqeXBqdDnmqhRz dGlj JBmkCHucR503JZUybAbfOqFO TUFMRTwvdGQ+TBHwMOA0nAxj CTueEEAenP1eETCkY3v5EcBm LjA1 DDjbE5RlBCJjgdjbUy42tV2f AtEjOgT3IUkcF3IlzoI5BIHz nVGsZVnvVJY7I38ly2C3GGSk MDAw FTN0pHC8fB3poPaqcixkwSJv dTdisdDmxAdcOUypFHgfJ688 CHBznRwuRlJcCXPnLK8gyTzm dGQ+ XD37gw56R8EeAzllJcx6KOVw NXD7lPW8iQ8iETBuSVrve5N0 nBD1H0QgflBggb4sb1tgRBDg ZTog E38ndDBue4D5DPXavWB5JQQc tNnyWyEheP03Nth+PGNvbGdy q5UyJuipx5fsb3kvmDn5FaBd JSIg xwUyjYxzEBP6f3ApCe39X17d IHdpZHRoPSIzMCUiIHZhbGln cb6mmR0xWo6+GEAzxCL5pWN0 aD0i HeDnUsH0BDusZ092AbJcmEMu Atusk0lzy0diqQb2OwLhMOWh kvFupYloONA4z3PzZr23U7Wk bGdy c0KgTev0ns90jSVme1V1hMV2 M0NsPERtdjehrWEvsStlAF7c ZPAaqrplTTSefI8cJIYeL9r6 OiAw ZeQ5LSizS5KcsyN7SOEywDJy QBTqwYQXzY0oolvqr9axbjoo GlOsRSVcKMx9EAq5YYQzoUpk OiBs YHK0TzA4WIN9rFAoxD2xnQmn hslcsC3eYsj+SHm1h1jogYUw LH2mkTN5ED58ZG82xQPfv9P2 bGU9 X2FpAIKokyxovkurgIS8GSEz UOIooL64Nv6taBdiXa1aJFIe SQR3TIQgnKEvY1QlwS4qDaSx MDAw LBJxG0GxnJSmMHbbO219BLem TyJ8HQTzucFlC1FtLKOxjTpc HtT6b6X7Li9YYV43JQ04PF21 dGQg t9C5jYB3A2EnKCXecpphqhmk nTV2AIGeFXVhiJ58Eq6gvCuy Ey2bSRKiCSI9WZNfoTQwK8Vz bG9y QwAuXPItBVGhS9UdjQBsEFgq Y752BXwmJiU8OYUckqEuQ6Mu UHOqkYtwQmQ7i6G7Nj8UGm07 PC90 AN86qRNnv0C1pNM9S1WwYLBk myrpbzrlnCJ8OLHxNOEjsO21 Xa4prPzmWc9qEEMkJTG4YVJj bWVz D2JbnQ5yEoWdODJpDJTzL3Qm wUCqODrzX126RVsxGoT6KYBq wmFxT0WyFSYmpCqgJvR1x6P3 Jz5Q FSfuzgk7R7VkTuxkgBM+PC90 ASJoQA16fJOwxAXck7xoeMu9 EmZuSDGeJGH4qCbrZLsto9Xf ZXIt Y29 (more content not included)... [facility] Coding Summary HTMLBase 64 HgsvftkvXZm0rTv+PGhlYWQ+ BC5ULHCpA55njCCfxA9rC7VP TElOSywgQVBQTElOSyIgbmFt QW7emIIbHQMj IC8+PS2wBGMjKynxsLQav1N7 vIA5S23ple0iPKdmtIH4ILCx AuEjtlpad6ngeFu3IPzeIvwk OyBt QTHesM61GZL7dG91Tw00iUVt sFYii9ytaZq5WyEwOJJiJPZ0 bQxyJGltw5YuBTRtK63jdSUn c2U6 NQSzpVrxmDKqMbPdvWF9qV9k YOrconbax2lpgeugVei7hv50 mMQmc5S9iXA6D0IzorX2UZQo bGQg ImxzsQBTwK5sfnttl7hpoopj RtSdLMDsCLa3DCt9VYBgeAiq OpWpEX63EYJ8GTSpgeNcG8Cq LWFs zVqgIkF8l3D5Al1ZW9NLFxvd D4GVWBDLJSkagSW+TF38jz12 P3GjCwpuFcq9EKGiYBP2rSM7 aD0n YDJcCEqyu9N0dFK4X2VxlsEy mr1kw4pbZRPgHUltX72yhZOy y8B5RWHciDB6JLKaiJflVaIv aG93 Oyc+LLMzcCiga3CqZtrqr8go s6xmqCn4UgrlSZUzxwHvnVvw USE3d2RoUc6yTDFjjFJ6fDY9 aD0i KjBqQfM3ALexC440ShQqiFXj WylbL94rE1SvlJY+PHRyPjx0 UNYcgMrlLB6xY4NbIBRtdcdz bGVm uDuvAL0yTRHlgegfIIAtyY8s RPAvU8l2DzErHuK9BQisV2Hg UBAyvybhCn83wK4lUbFwGoZ8 MGlu S7SxksM4WCFeiPFiJFkrKVS9 N60pj9X8JOHcLLCgKTA4xKX4 iS1txUpwmdasyCHkjBjlluRv dGlj ONdlWLlvX806TNUixFbgVeLv ZGluZyBEYXRlOiAgMTAvMjUv MjAyNDwvdGQ+HURpOFK4eBnk PSAn nJOfZVvrMs8pqTpkdWqlCY6o UPGemgsyWDSwuC4oROGqlZWv bTkfPC9nZTRxigcvx040QmOd MHB0 CTXdnPErM8KciM5mToIgTHLw JKVaQ6XbxBQbSEtqB627BApu UlG8JMTawmOfV2LgPWEeuUrk OiB0 a7Z2Gn6Gu4OzswvmQ1XatTXf FtReEmgeFLo3S7QgSpmfpBU+ OC53CVMoTM40ETc5ZQI1wDpr PSdi VDWzD9ZveL6sMsFcTRLgCOZy Oyc+PHRhYmxlIHdpZHRoPScx HIZdTfMuwUacXJ3eLu6fMWZy LWNv mHfihRCcUuWoa7yaUUVwUSid JI9obTcaG7OifFZ2UEAfo1c0 Cn20G61fX3SguOV+PGNvbCB3 aWR0 rT7wZuDsRuA6OVmoZ838YcHf iNRtPawwl7drg4iqtKw6EzO8 ECJczoMxnBafYTD7z3XpZh04 Y29s IHdpZHRoPSIxNSUiIHZhbGln zh1ozS4kSg1+AQLhiZP7fWX6 vB0uJaNxZnX6CRmhP176QiMc cCIv Jushw3yen3vmjRp4LgPbYTMs svAvfTbzARN3e9OtYu37C3Ys rBetp1DiBkr1kc15aRFog0B6 bGU9 G4FoWNLkfonblAPonXhiQN3o XOExnnzxLMDolH3yQIReW0m4 OqViSsX1FNucL7XlwkB7JOWu bGQg EAQzfCQZlL9wuwppd7nqeayy MiKlWBEgOUu8IKm3MJTrwHxn MwMiSNG2EkN8LRN9uFSqdZ6p bGln yvaxmV9hVoz+GMH6jYCbdZEZ AS1oWnhhrCO+LYZmKTB5cAmx PRupRTInzZ5xFOYsT8c6PmKe LjA1 IIvyJ6ZkrtD5LMGukNZqIIEp qXDIbU6rghwyj4hrjngtQiNh JQCuOHr3CLk3KEBrqYjrLwEb ZWZ0 OdC2HUF3fEKxkQ0fcRsvdzlq nC8fSlt+WyzeqDqqFVW6PNm6 U8MvRlj1UWZfgQtnNN6stCZd ZGlu Yt2gcXhaiKnaJU4uXGNhokcj m210WuRvs1zuLOUbgWHvMHzh EJG5J72xk0A6QROmSBPwXZA7 dGV4 cT1awPscczvruCVzbJvwqvXp hGtpTPlpUQbpL038OJTszTgv GjXyDFk6Y2NsDvk2MSQuwHjo ZT0n qHUwOOdcIg5roUjwsJtcZJ9i VQFpfiixy228KxVbu1svWQJg kCMkXTbvWFJ1S76dz0N3QJCw MDAw YOY0cYY4lX9kyJbqvcxhtWNh vNnaelVqnRcpIYehQTqqD597 BRWgwRksAnGkkNj5R1EoIpm6 ZCBz gKwoRO2qjQLzSHbpIw1hcNrt iZrhGM2cMUWgkhtzh748InVa f7nrBPFrbENwEDrvREE8E19m b3I6 TXFvEQTiROD8rBI0bF0yoLmo bjogbGVmdDsgdmVydGljYWwt ESakI320QUQpoQwhNtUznYnm bnQg JCmyGQw0M8RfWjdrjVL+PC90 KVUuMK58bHDpsYIrr0kalAs8 BmScFRPjVVW4gOekYMnyg3Wr ZXIt F64inMPwb8D0BRCxaTvroSUu PxUnhBX6xI9fQGjnlwvhu3zq ivyiEsrau8wfpd41gU66X57b IHdp XSOmKSItKBHmYJMkyPwzyl1l bN8gRw0+PJQsfMD5vOR4jL7x CWOaHdH5LDxdL055TgAxePEl Pjxj e4fvj0vmaFd3VcD2MJFfxsDg eQunUHG1q8HhJu73U46sEAam ELXrIPLyMWEbYVHzmGczos6h dG9w Ii8+KEVruKP5nFB8rX0bBhEh XfR2NXjsD793ZmGgpISgFgnk E70rW3DypNB+TLYpTqp3KFPd dHls KB9mlKXiJUlbEm8mIOA6RaLg AdHnBUiqL9KzPDIslnkmxtgr wXC7HWPaLPZrgC23Au0ndBvc MTBw jICTvB9zflmhm1lqabhdJvHu FOSjHCr2ARm9QCCdpDuxZkOc IDW3ClH6WHF6jTOvxQ0pzWhb bjog zI4bG3PcSLAlalleQf12eU3c ByMdEqE4PAmlZdj+M54SO0tG LCBBTUFOREEgREFXTjwvdGQ+ PHRk NOC3iVjjXSphCKNhfK7fOJLg E7k2GpFgZzA9EOmcQ7CbNIGv njegIl79gS9vTpVgYwQ0FYhj O2Zv vgP1DUWuzPPqEOmsCPG7D63t x6P2WQRbOUAsYLR2hNY9mQ8e bGlnbjogbGVmdDsgdmVydGlj YWwt XVcjH418UICgwQtyLpX5MeBi MtO3XMM1Z6ImXhi9TXGncDkv XG3xaXQfRDcwHm2kkEeorEud MC4w JKBcynixFDLkuF0bEVIqtYTy kOgeVH6wHUMcmtmpx946UoJa OIS1JYHcgTMvO6VzhZ4zQfBv MDAw URUrT0ZgdIKrKPdlN636YHwq EpK0PBXunjFsE6CqYCIsjHqj FrA1m3E3Tt13EJJLMBUfavro dGQ+ GSAwYCU2gMomGLhwOFPezM8e AZChA3g9LjXbAvO5APasI3Oc XPLysytgJh46zF1yGlMfNiB8 MGlu X8AyucY1XQMpoVJwOIgnEAU8 F40hg0D8RDUfAPDbMDT4fUC6 uY0chLhdaifscHJduEntanEs dGlj WMuqGOdsV719RIOgsLgmSfZW TUFMRTwvdGQ+BLJnLHL8sPrh GXmkUOWqyX8pTATxY4b2XjOu LjA1 PGqqI1PvXRKokflqRs77rI5o TnRuOlQ3XNgtX2AidhB1OILq vLHiMGosDFU2M79ob7M9WPWv MDAw FKA2hGM8sJ3efAclcktntEXo pHtpljEyiItdPDxaXDzcA696 RXWzbDdkWvMzUSUqUR0gnArk dGQ+ EN83ak92M3NfRxkmJdp1VQJm RQU7qSW8lS7gNQLoKLbfm2U8 sBP8A9TsufCtmf3co2ltLTQs ZTog F54dzAIsg6M0YEGarXD4SNNd qQneAnPesZ61Sml+PGNvbGdy d1DmHhmhx7qfe2jiuHa2QkLa JSIg xtZomEmyMMD4j7FcIf16J79i IHdpZHRoPSIzMCUiIHZhbGln mx7gbY9aIo7+LUNpfWZ7vPX2 aD0i SwLiEiU2KUswI007KmYccFDh Xbmbj1pss9uamLu0AdBcHKGu rsCkfJrrGCP0t7JsIq65Z2Cq bGdy d6IuPim6mp34uYYfn7P1wIY5 S0GfTGDemdkpuYDsiIonNR2e IILlutjpPZGvcC5nQKKhL8t0 OiAw MfE0NTwyK1NapvI2WXJotZKj DMBicOOWvB2oxujzf0wrexso QnWsAGYfAXv1THg3DWKmxSit OiBs TIS9TxI8LVU8nUTsxB2iaOax bhrsqL7dSii+KZs4a9pmaQBo EZ6lxGX1LN38ZV89xIFoa6X8 bGU9 I4QaLWExckqwrmxlmUW1DVTt RWNheB58Lv0lgPpyHm5mVSKc XBQ7FFJvhVPqS9RduQ7pFvQf MDAw KYXlI6QbdFPkOYpbQ431FShj TwC8RBErocKyG6KfSOLuzPjw SdC4d7N0Ik4HIM23OE03VX64 dGQg s1A7mAM2T3IfKKTdpnmwexkt aKN8PNYrTMWwrD47Rs7onMla Tr1cBOWfNBL4XGWxaZTuG1Np bG9y AtWxDRMxIPOfB3ItlHNxKIoo T060KKtbEqH5EPTdzgLhL1Il EEBecEtlZjF5y1N7Qo4BUz42 PC90 BC82mPOay8L9eXK7V2OaLNUz rgnctlynlRU6LWNwIDLgmX17 Qo0pzKpvXa8cWNLfFBB5HGQl bWVz W9SltU5fSsYiGYRtRHNhN5Jk eECfZVxmL164ZAblLqL8ZDXy jbQvV5JbCFThsKolKbT2p0C7 Jz5Q SOhktdk5F9RgNdjbwCS+PC90 WBLcZQ15dHEabHFvn4rgoFf1 VlVvLEZtGJV1nHbmTEjdi9Gr ZXIt Y29 (more content not included)... [facility] Consent Formson 01-15-2024 Consent Forms [id number] TIFF [facility] .Auto Diff 1on 01-14-2024 Auto Payne % 6 % Normal 04-14 [facility] Comment on above: Performed By: #### 1 [id number], [id number], 7204122046, 4624822, 57144319, 3376641743, 7174483 ####[facility] (DEFAULT)[address] [place] [address] 86660 Baso Abs# 0.0 x10 Normal 0.0-0.2 [facility] Comment on above: Performed By: #### 1 [id number], [id number], 3033469723, 0727843, 99616483, 2890944265, 8942363 ####[facility] (DEFAULT)[address] [place] [address] 00186 Basophils/100 WBC (Bld) 0.7 % Normal 0.2-2.0 [facility] Comment on above: Performed By: #### 1 [id number], [id number], 2688474558, 0114912, 86916211, 0798041919, 8188529 ####[facility] (DEFAULT)[address] [place] [address] 84032 Eos Abs# 0.1 x10 Normal 0.0-0.4 [facility] Comment on above: Performed By: #### 1 [id number], [id number], 2493664160, 6463187, 45575999, 4049187175, 7621917 ####[facility] (DEFAULT)[address] [place] [address] 22601 Eosinophils/100 WBC (Bld) 1.3 % Normal 0.9-4.0 [facility] Comment on above: Performed By: #### 1 [id number], [id number], 0318214159, 4994016, 76398299, 1111564220, 8179503 ####[facility] (DEFAULT)[address] [place] [address] 61671 Lymph Abs# 1.6 x10 Normal 1.3-2.9 [facility] Comment on above: Performed By: #### 1 [id number], 4706526018, 7081478109, 3941522, 54380431, 3045611617, 1473081 ####[facility] (DEFAULT)[address] [place] [address] 24275 Lymphocytes/100 WBC (Bld) 25 % Normal 14-48 [facility] Comment on above: Performed By: #### 1 [id number], 4278906702, 7603503042, 9943528, 22093724, 0486370514, 0728448 ####[facility] (DEFAULT)[address] [place] [address] Payne Abs# 0.4 x10 Normal 0.0-0.8 [facility] Comment on above: Performed By: #### 1 [id number], [id number], 8034082960, 4908730, 99827209, 5955690734, 3549771 ####[facility] (DEFAULT)[address] [place] [address] Neut Abs# 4.2 x10 Normal 1.5-9.2 [facility] Comment on above: Performed By: #### 1 [id number], 9569394434, 9646605626, 0827442, 24529114, 3946632161, 5512448 ####[facility] (DEFAULT)[address] [place] [address] Neutrophils/100 WBC (Bld) 67 % Normal 44-88 [facility] Comment on above: Performed By: #### 1 [id number], 9941565329, 1057701588, 3898185, 10870339, 3725106329, 0361493 ####[facility] (DEFAULT)[address] [place] [address] 59685 Basophils Auto (Bld) [#/Vol] on 01-14-2024 Basophils (Bld) [#/Vol] Automated basophil count 0.0-0.2 [facility] Basophils/100 WBC Auto (Bld) on 01-14-2024 Basophils/100 WBC (Bld) Automated basophil % 0. 2-2.0 [facility] CBC w/ Auto Diffon Erythrocyte distribution width (RBC) [Ratio] 14.5 % Normal 11.5-15.0 [facility] Comment on above: Performed By: #### 1 [id number], [id number], 3134623280, 7762163, 69291487, 5850591719, 6295694 ####[facility] (DEFAULT)[address] [place] [address] Hematocrit (Bld) [Volume fraction] 37.9 % Normal 33.7-40.4 [facility] Comment on above: Performed By: #### 1 [id number], 3795084648, 2687677776, 8361059, 67330729, 0249890347, 5904377 ####[facility] (DEFAULT)[address] [place] [address] Hemoglobin (Bld) [Mass/Vol] 12.3 g/dL Normal 11.3-15.9 [facility] Comment on above: Performed By: #### 1 [id number], 8536445873, 1595764593, 1579712, 61464476, 4102268070, 6135753 ####[facility] (DEFAULT)[address] [place] [address] Man Diff? Auto Invalid Interpretation Code [facility] Comment on above: Performed By: #### 1 [id number], [id number], 6730775250, 7185084, 69478691, 7100005018, 0257927 ####[facility] (DEFAULT)[address] [place] [address] MCH (RBC) [Entitic mass] 27 pg Normal 24-34 [facility] Comment on above: Performed By: #### 1 [id number], [id number], 0057176802, 5794829, 71648897, 3829106169, 8476134 ####[facility] (DEFAULT)[address] [place] [address] MCHC (RBC) [Mass/Vol] 33 g/dL Normal 26-37 [facility] Comment on above: Performed By: #### 1 [id number], 1107433937, 6252299434, 8399713, 61120704, 0382181990, 6158006 ####[facility] (DEFAULT)[address] [place] [address] MCV (RBC) [Entitic vol] 84 fL Normal 81-100 [facility] Comment on above: Performed By: #### 1 [id number], 3182149567, 3750151783, 2900280, 16463441, 7249359503, 5124361 ####[facility] (DEFAULT)[address] [place] [address] Platelet 270 x10 Normal 138-427 [facility] Comment on above: Performed By: #### 1 [id number], 9286225171, 5519303845, 6688375, 49459354, 3144558408, 2691559 ####[facility] (DEFAULT)[address] [place] [address] Platelet mean volume (Bld) [Entitic vol] 7.4 fL Normal 6.3-10.2 [facility] Comment on above: Performed By: #### 1 [id number], 1091497816, 8718584951, 6593847, 79965642, 2737683903, 5671823 ####[facility] (DEFAULT)[address] [place] [address] RBC 4.53 x10 Normal 3.70-5.30 [facility] Comment on above: Performed By: #### 1 [id number], 4849086983, 0027385161, 9427792, 07729568, 2039034524, 1228137 ####[facility] (DEFAULT)[address] [place] [address] WBC 6.3 x10 Normal 3.5-10.5 [facility] Comment on above: Performed By: #### 1 [id number], 4317686410, 7270860032, 2018496, 10621157, 0126146725, 5695897 ####[facility] (DEFAULT)[address] [place] [address] Standardon 01-14-2024 Breakpoint Chem Normal [facility] Comment on above: Performed By: #### 1 [id number], 8184113579, 4464548746, 7026514, 49394127, 0472149264, 9033097 ####[facility] (DEFAULT)[address] [place] [address] 73316 eGFR Non AA >60 Invalid Interpretation Code [facility] Comment on above: Performed By: #### 1 [id number], 8826997213, 6859491184, 4224745, 39322576, 2555936092, 4444385 ####[facility] (DEFAULT)[address] [place] [address] 90556 eGFR AA >60 Invalid Interpretation Code [facility] Comment on above: Performed By: #### 1 [id number], 6531440084, 7716572867, 0903723, 22195682, 4247944096, 3719694 ####[facility] (DEFAULT)[address] [place] [address] 44085 Albumin [Mass/Vol] 3.6 g/dL Normal 3.5-5.0 [facility] Comment on above: Performed By: #### 1 [id number], [id number], 2859592097, 2595165, 05451683, 0071388524, 5810039 ####[facility] (DEFAULT)[address] [place] [address] 21917 Albumin/Globulin [Mass ratio] 1.2 {ratio} Low 1.4-2.6 [facility] Comment on above: Performed By: #### 1 [id number], 6583143105, 4705836160, 2059708, 47020385, 9475439045, 4226912 ####[facility] (DEFAULT)[address] [place] [address] 88693 Alk Phos 73 IU/L Normal 32-91 [facility] Comment on above: Performed By: #### 1 [id number], 3272142012, 1328039956, 4287552, 13364193, 3490144323, 3551501 ####[facility] (DEFAULT)[address] [place] [address] ALT [Catalytic activity/Vol] 16.0 U/L Normal 14.0-54.0 [facility] Comment on above: Performed By: #### 1 [id number], [id number], 8043725306, 1177125, 45415706, 2801311759, 5591212 ####[facility] (DEFAULT)[address] [place] [address] 11420 Anion gap [Moles/Vol] 6.9 mmol/L Normal 5.0-19.0 [facility] Comment on above: Performed By: #### 1 [id number], 2297686424, 7248121931, 3581179, 14923693, 4482547589, 0491352 ####[facility] (DEFAULT)[address] [place] [address] 87701 AST [Catalytic activity/Vol] 19 U/L Normal 15-41 [facility] Comment on above: Performed By: #### 1 [id number], [id number], 4348501541, 6531457, 00903517, 3138101847, 9536129 ####[facility] (DEFAULT)[address] [place] [address] 59901 Bili Total 0.2 mg/dL Low 0.3-1.2 [facility] Comment on above: Performed By: #### 1 [id number], 0941520976, 9068461869, 9367012, 57947387, 7651257804, 1653109 ####[facility] (DEFAULT)[address] [place] [address] 75311 Calcium [Mass/Vol] 8.4 mg/dL Low 8.9-10.3 [facility] Comment on above: Performed By: #### 1 [id number], 3966134116, 2642590351, 1391708, 22934775, 8289608632, 7930351 ####[facility] (DEFAULT)[address] [place] [address] 70856 Chloride [Moles/Vol] 108 mmol/L Normal 101-111 [facility] Comment on above: Performed By: #### 1 [id number], 7252279086, 2498803561, 8093651, 00613943, 7923740085, 3116762 ####[facility] (DEFAULT)[address] [place] [address] 89005 CO2 [Moles/Vol] 24 mmol/L Normal 21-32 [facility] Comment on above: Performed By: #### 1 [id number], [id number], 9302583435, 0921268, 90434694, 9615762476, 6520117 ####[facility] (DEFAULT)[address] [place] [address] 13790 Creatinine [Mass/Vol] 0.78 mg/dL Normal 0.60-1.30 [facility] Comment on above: Performed By: #### 1 [id number], [id number], [id number], 6440886, 17984623, [id number], 7864472 ####[facility] (DEFAULT)[address] [place] [address] 87075 Globulin (S) [Mass/Vol] 2.9 g/dL Normal 1.5-4.3 [facility] Comment on above: Performed By: #### 1 [id number], [id number], [id number], 7884770, 68528128, [id number], 9368985 ####[facility] (DEFAULT)[address] [place] [address]1713 Glucose [Mass/Vol] 88.0 mg/dL Normal 74.0-118.0 [facility] Comment on above: Performed By: #### 1 [id number], [id number], [id number], 5822257, 63117515, [id number], 1951719 ####[facility] (DEFAULT)[address] [place] [address]8874 Osmolality 270 mOsm/L Invalid Interpretation Code [facility] Comment on above: Performed By: #### 1 [id number], [id number], [id number], 3363881, 08216071, [id number], 8371341 ####[facility] (DEFAULT)[address] [place] [address] 11729 Potassium [Moles/Vol] 3.9 mmol/L Normal 3.6-5.1 [facility] Comment on above: Performed By: #### 1 [id number], [id number], [id number], 2089047, 35916713, 1461474741, 6199178 ####[facility] (DEFAULT)[address] [place] [address] 87174 Protein [Mass/Vol] 6.5 g/dL Normal 6.5-8.1 [facility] Comment on above: Performed By: #### 1 [id number], [id number], [id number], 6962303, 76999244, 2257408426, 4686792 ####[facility] (DEFAULT)[address] [place] [address] 29544 Sodium [Moles/Vol] 135.0 mmol/L Low 136.0-144 . 0 [facility] Comment on above: Performed By: #### 1 [id number], [id number], [id number], 3574962, 04056909, 8142556765, 5446715 ####[facility] (DEFAULT)[address] [place] [address] 07320 Urea nitrogen [Mass/Vol] 15 mg/dL Normal 8-26 [facility] Comment on above: Performed By: #### 1 [id number], [id number], 9971457498, 2586480, 55516272, 5854978041, 0805758 ####[facility] (DEFAULT)[address] [place] [address] 07153 Urea nitrogen/Creatinine [Mass ratio] 19.2 mg/mg High 4.6-16.2 [facility] Comment on above: Performed By: #### 1 [id number], [id number], [id number], 5524454, 82188975, [id number], 8073116 ####[facility] (DEFAULT)[address] [place] [address]ography [address]23 Ct angiography head [...] Mathis DO 01/14/24 8:11 am Technologist: FREEMAN [facility] CT Head or Brain w/o Contras ton [...] Wright MD 01/14/24 6:53 am Technologist: KALYAN [facility] ED Clinical Summaryon 2023 ED Clinical Summary [facility] - Emergency Department [address] [place] [address] ED Clinical Summary PERSON INFORMATION Name: KARUNA DUMONT Age: 43 Years Sex: FEMALE : 1980 MRN: Acct#: Visit Reason: Headache; HEADACHE Arrival: 01/14/2024 04:59:27 Discharge: 01/14/2024 09:46:00 LOS: 000 04:47 Check In: 01/14/2024 04:59:27 Checkout:01/14/2024 09:46:00 Address: [address] [facility] [address] PCP: Johnathon Winter MD PROVIDER INFORMATION Provider Role Assigned Unassigned Dot Cantu LPN [employer] Nurse 01/14/2024 05:00:50 Santy Mckeon MD ED Provider 01/14/2024 05:02:54 Maribel Yousif LPN [employer] Nurse 01/14/2024 07:21:53 Joaquim Gary MD ED [...] evaluation of headache. 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 Stated headache is [...] Substance Use (more content not included)... Normal [facility] ED Note - Physicianon 2023 ED [...] evaluation of headache. 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 Stated headache is [...] Plan Diagnosis Sudden onset of severe headache ([id number] R51.9, Discharge, Medical) Headache, unspecified ([id number] R51.9, Medical) Plan Condition: Improved, Stable. Disposition: Disch (more content not included)... Normal [facility] ED Patient Summaryon 024 ED Patient Summary [facility] - Emergency Department [address] [place] [address] PATIENT DISCHARGE INSTRUCTIONS Patient Information Name: KARUNA DUMONT Age: 43 Years Date of : 1980 Reason For Visit: Headache; HEADACHE Arrival Time: 01/14/2024 04:59:27 Primary Care Physician: Johnathon Winter MD Attending Physician: Santy Mckeon MD Comment: Visit Diagnosis: Diagnoses This Visit Headache (05757240) Headache, unspecified (R51.9) Sudden onset of severe headache (R51.9) The Pharmacy at [facility] is open Monday through Monday from 9A [...] contact the [facility] 24/10 Crisis Hotline -Text 3YUSY ax 711319. If you received any narcotics, sedation, or [...] legal documents With: Address: When: Johnathon Laura [address] [place] [address], [facility] [place] [address] Business (1) Within 2 to 4 days [...] you received today in the [facility] were for an urgent problem and are not intended as complete care. It is important for you to follow up with a doctor, nurse practitioner, or physician?s assistant teaching professor for ongoing care. If your symptoms become [...] so we can reach you if necessary. [facility] Emergency Department has provided you with a complete list of medications post discharge. Please inform your computer operations analyst/provider of your visit and for further instruction [...] amine (amphetamine-dextroa (more content not included)... Normal [facility] Eosinophils/100 WBC Auto (Bl d)on 01-14-2024 Eosinophils/100 WBC (Bld) Automated eosinophil % 0.9-4.0 [facility] Erythrocyte distribution wid th Auto (RBC) [Ratio]on 01-14-2024 Erythrocyte distribution width (RBC) [Ratio] Erythrocyte distribution width [Ratio] by Automated count 11.5-15.0 [facility] Estimated glomerular filtrat ion rate (GFR) non- Americanon 01-14-2024 GFR/1.73 sq M.predicted among non-blacks MDRD (S/P/Bld) [Vol rate/Area] Estimated glomerular filtration rate (GFR) non- [facility] Extra Greenon 01-14-2024 Tube Collected Yes Invalid Interpretation Code [facility] Comment on above: Performed By: #### 1 [id number], [id number], [id number], [id number], [id number], [id number], [id number] ####[facility] ([facility])[address] [place] [address] Globulin Calc (S) [Mass/Vol] on 01-14-2024 Globulin (S) [Mass/Vol] Serum globulin measurement by calculation (mass/volume) 1.5-4.3 [facility] Hematocrit Auto (Bld) [Volum e fraction]on 01-14-2024 Hematocrit (Bld) [Volume fraction] Hematocrit [Volume Fraction] of Blood by Automated count 33.7-40.4 [facility] Hemoglobin [Mass/volume] in Bloodon 01-14-2024 Hemoglobin (Bld) [Mass/Vol] Hemoglobin [Mass/volume] in Blood 11.3-15.9 [facility] Laboratory - Chemistry and C hemistry - challengeon 01-14-2024 Albumin [Mass/Vol] 3.6 g/dL 3.5-5.0 [facility] ALP [Catalytic activity/Vol] 73 U/L 32-91 [facility] ALT [Catalytic activity/Vol] 16.0 U/L 14.0-54.0 [facility] AST [Catalytic activity/Vol] 19 U/L 15-41 [facility] Bilirubin [Mass/Vol] 0.2 mg/dL Low 0.3-1.2 [facility] Calcium [Mass/Vol] 8.4 mg/dL Low 8.9-10.3 [facility] Chloride [Moles/Vol] 108 mmol/L 101-111 [facility] CO2 [Moles/Vol] 24 mmol/L 21-32 [facility] Creatinine [Mass/Vol] 0.78 mg/dL 0.60-1.30 [facility] GFR/1.73 sq M.predicted MDRD (S/P/Bld) [Vol rate/Area] mL/min/{1.73_m2} [facility] Glucose [Mass/Vol] 88.0 mg/dL 74.0-118.0 [facility] Potassium [Moles/Vol] 3.9 mmol/L 3.6-5.1 [facility] Protein [Mass/Vol] 6.5 g/dL 6.5-8.1 [facility] Sodium [Moles/Vol] 135.0 mmol/L Low 136.0-144 . 0 [facility] Urea nitrogen [Mass/Vol] 15 mg/dL 8- [facility] Urea nitrogen/Creatinine [Mass ratio] 19.2 mg/mg High 4.6-16.2 [facility] Laboratory - Hematology and Cell countson 01-14-2024 ESR (Bld) [Velocity] 8 mm/h 0-20 [facility] Leukocytes [#/volume] correc mini for nucleated erythrocytes in Blood by Automated counon 01-14-2024 WBC corrected for nucl RBC Auto (Bld) [#/Vol] Leukocytes [#/volume] corrected for nucleated erythrocytes in Blood by Automated coun 3.5-10.5 [facility] Lymphocytes Auto (Bld) [#/Vo l]on 01-14-2024 Lymphocytes (Bld) [#/Vol] Lymphocytes [#/volume] in Blood by Automated count 1.3-2.9 [facility] Lymphocytes/100 WBC Auto (Bl d)on 01-14-2024 Lymphocytes/100 WBC (Bld) Lymphocytes/100 leukocytes in Blood by Automated count 14-48 [facility] MCH Auto (RBC) [Entitic mass ]on 01-14-2024 MCH (RBC) [Entitic mass] MCH [Entitic mass] by Automated count 24-34 [facility] MCHC Auto (RBC) [Mass/Vol]on 01-14-2024 MCHC (RBC) [Mass/Vol] MCHC [Mass/volume] by Automated count 26-37 [facility] MCV Auto (RBC) [Entitic vol] on 01-14-2024 MCV (RBC) [Entitic vol] MCV [Entitic vol ume] by Automated count 81-100 [facility] Monocytes Auto (Bld) [#/Vol] on 01-14-2024 Monocytes (Bld) [#/Vol] Automated blood monocyte count 0.0-0.8 [facility] Monocytes/100 WBC Auto (Bld) on 01-14-2024 Monocytes/100 WBC (Bld) Automated monocyte % 1- 12 [facility] Neutrophils Auto (Bld) [#/Vo l]on 01-14-2024 Neutrophils (Bld) [#/Vol] Neutrophils [#/volume] in Blood by Automated count 1.5-9.2 [facility] Neutrophils/100 WBC Auto (Bl d)on 01-14-2024 Neutrophils/100 WBC (Bld) Automated neutrophil % 44-88 [facility] No Panel Informationon 01-13 Add Manual Differential Auto Auto [facility] Eosinophils # (Auto) 0.1 x10 0.0-0.4 [facility] Osmolality 270 mOsm/L [facility] Platelet mean volume Auto (B ld) [Entitic vol]on 01-14-2024 Platelet mean volume (Bld) [Entitic vol] Platelet mean volume [Entitic volume] in Blood by Automated count 6.3-10.2 [facility] Platelets Auto (Bld) [#/Vol] on 01-14-2024 Platelets (Bld) [#/Vol] Platelets [#/vol ume] in Blood by Automated count 138-427 [facility] RBC Auto (Bld) [#/Vol]on RBC (Bld) [#/Vol] Erythrocytes [#/volu me] in Blood by Automated count 3.70-5.30 [facility] Sed Rateon 01-14-2024 Sed Rate 8 mm/hr Normal 0-20 [facility] Comment on above: Performed By: #### 1 [id number], [id number], [id number] ####[facility] (DEFAULT)[address] [id number] Serum or plasma albumin/glob ulin mass ratioon 01-14-2024 Albumin/Globulin [Mass ratio] Serum or plasma albumin/globulin mass ratio Low 1.4-2.6 [facility] Serum or plasma anion gap de terminationon 01-14-2024 Anion gap [Moles/Vol] Serum or plasma an ion gap determination 5.0-19.0 [facility] VITAMIN B12on 12-29-2023 Cobalamin (Vitamin B12) [Mass/Vol] 303 pg/mL 232 - 1245 pg/mL [facility] Comment on above: Performed at: [address] [id number] [employer] Salesperson: Theron Roblero PhD, Phone: [phone] [facility] ALL CBC WITH AUTO DIFFon BASOPHILS ABSOLUTE AUTO 0.1 [facility] Basophils/100 WBC (Bld) 0.8 % 0.2 - 2.0 % [facility] Eosinophils/100 WBC (Bld) 1.5 % 0.9 - 7.0 % [facility] Erythrocyte distribution width (RBC) [Ratio] 13.7 % 11.0 - 15.0 % [facility] Hematocrit (Bld) [Volume fraction] 41.5 % 36.0 - 48.0 % [facility] Hemoglobin (Bld) [Mass/Vol] 12.9 g/dL 12.0 - 16.0 g/dL [facility] IMMATURE GRANULOCYTES ABS AUTO 0.02 [facility] Immature granulocytes/100 WBC (Bld) 0.3 % 0.0 - 0.5 % [facility] Interpretation and review of laboratory results Abnormal [facility] LYMPHOCYTES ABSOLUTE AUTO 2.5 [facility] Lymphocytes/100 WBC (Bld) 34.0 % 20.5 - 60.0 % [facility] MCH (RBC) [Entitic mass] 27.4 pg 26.7 - 34.0 pg [facility] MCHC (RBC) [Mass/Vol] 31.1 g/dL 29.9 - 35.2 g/dL [facility] MCV (RBC) [Entitic vol] 88.3 fL 81.0 - 99.0 fL [facility] MONOCYTES ABSOLUTE AUTO 0.4 [facility] Monocytes/100 WBC (Bld) 5.9 % 1.7 - 12.0 % [facility] NEUTROPHILS ABSOLUTE AUTO 4.2 [facility] Neutrophils/100 WBC (Bld) 57.5 % 43.0 - 75.0 % [facility] Platelet mean volume (Bld) [Entitic vol] 8.7 fL Low 9.5 - 13.5 fL [facility] TBH EO # 0.1 [facility] TBH PLT 279 [facility] TB RBC 4.70 [facility] TB WBC 7.3 [facility] MLR HEMOGLOBIN A1Con 024 Glucose [Mass/Vol] 97 mg/dL [facility] HbA1c (Bld) [Mass fraction] 5.0 % 4.5 - 6.2 % [facility] Comment on above: ADA RECOMMENDED LIMI T 4.0 - 6.0 ADA THERAPEUTIC TARGET < 7.0 ACTION SUGGESTED > 7.0 [facility] HCG ( test) Ql (U)o n 12-06-2023 Preg Test, Ur Negative [facility] Jose 12-06-2023 L Specimen: [id number] Received: 12/07/23 [facility] Num: [id number] Spec Type: Surgical Subm Dr: Sanjeev Lopez Tissues: A Endometrium - Biopsy (EMBX) Procedures: HE/2, Gross/Micro L4 Age/ Patient Sex Location Account Attending Physician Karuna Dumont 43/F KATINA [id number] Sanjeev Lopez SPEC NUM: [id number] RECD: 12/07/23 [facility] NUM: [id number] GENEVA: 12/06/23- SUBM DR: Sanjeev Lopez ENTERED: 12/07/23 [facility] DR: Bert,Lab SPEC TYPE: Surgical DEPT: ROLDAN THOMPSON ENTERED BY: [id number] RECV BY: [id number] ORDERED: HE/2, Gross/Micro L4 ORDERED: HE/2, Gross/Micro [...] are performed supporting the above interpretation Specimen: [id number] Received: 12/07/23 Status: NATHAN Guzmán Num: [id number] Spec Type: Surgical Subm Dr: Sanjeev Lopez Tissues: A Endometrium - Biopsy (EMBX) Procedures: Cheyanne HERNANDEZ/Kwame L4 Patient: Karuna Dumont [id number] (Continued) Specimen: [id number] Received: 12/07/23 (Continued) Signed (signature on file) Frida Kirby MD 12/12/23 2158 Specimen: [id number] Received: 12/07/23 Status: NATHAN Guzmán Num: [id number] Spec Type: Surgical Subm Dr: Sanjeev Lopez Tissues: A Endometrium - Biopsy (EMBX) Procedures: Cheyanne HERNANDEZ/Micro L4 Patient: Karuna Dumont [id number] (Continued) Specimen: [id number] Received: 12/07/23 (Continued) CPT Codes 74432 Specimen: [id number] Received: 12/07/23 Status: NATHAN Guzmán Num: [id number] Spec Type: Surgical Subm Dr: Sanjeev Lopez Tissues: A Endometrium - Biopsy (EMBX) Procedures: HE/2, Gross/Micro L4 Patient: Karuna Dumont [id number] (Continued) Signed (signature on file) Elia-Blake Kirby MD 12/12/23 2158 Normal [facility] ALL DHEA SULFATEon DHEA-SULFATE 40.8 ug/dL Abnormal 57.3 - 279.2 ug/dL [facility] METRO SEX BINDING HORMONE (S HBG), TESTOSTERONE, FREE AND BIOAVAILABLEon 12-02-2023 SEX HORM BINDING GLOB, SERUM 60.9 nmol/L 24.6 - 122.0 nmol/L [facility] Comment on above: Performed at: [employer] [id number] [employer] Salesperson: Theron Roblero PhD, Phone: [phone] No Panel Informationon 12-01 Interpretation and review of laboratory results Abnormal [facility] SRMCOH TESTOSTERONE FREE/TOT EQUILIBon 12-02-2023 FREE TESTOSTERONE(DIRECT) <0.2 0.0 - 4.2 pg/mL [facility] Comment on above: Performed at: [employer] [address] [place] [id number] [employer] Salesperson: Theron Roblero PhD, Phone: [phone] Performed at: [facility] [employer] [id number] [employer] Salesperson: Katelynn Macdonald MD, Phone: [phone] Testosterone [Mass/Vol] ng/dL Abnormal 8 - 60 ng/dL [facility] Free testosterone measuremen t by LC-MS/MSon 11-29-2023 Testosterone Free [Mass/Vol] <0.2 pg/mL 0.0-4.2 [facility] Comment on above: Performed at: [employer] [address] [id number] Director: Theron Roblero PhD, Phone: [phone] at: [facility] [address] [id number] Director: Katelynn Macdonald MD, Phone: [phone] No Panel Informationon 11-28 Dehydroepiandrosterone Sulfate 40.8 ug/dL Abnormal 57.3-279.2 [facility] Sex Hormone Binding Globulin 60.9 nmol/L 24.6-122.0 [facility] Comment on above: Performed at: [employer] [address] [id number] Director: Theron Roblero PhD, Phone: [phone] Testosterone Level <3 ng/dL Abnormal 8-60 [facility] Activated partial thrombopla stin time (aPTT) in platelet poor plasma by coagulation aon 10-25-2023 aPTT Coag (PPP) [Time] 29.5 s 22.3-36.2 [facility] Basophils Auto (Bld) [#/Vol] on 10-25-2023 Basophils (Bld) [#/Vol] 0.1 10 3/uL 0.0-0.1 [facility] Basophils/100 WBC Auto (Bld) on 10-25-2023 Basophils/100 WBC (Bld) 1.1 % 0.2-2.0 [facility] Eosinophils/100 WBC Auto (Bl d)on 10-25-2023 Eosinophils/100 WBC (Bld) 2.2 % 0.9-7.0 [facility] Erythrocyte distribution wid th Auto (RBC) [Ratio]on 10-25-2023 Erythrocyte distribution width (RBC) [Ratio] 14.5 % 11.0-15.0 [facility] Glucose mean value [Mass/vol ume] in Blood Estimated from glycated hemoglobinon 10-25-2023 Average glucose Estimated from glycated hemoglobin (Bld) [Mass/Vol] 88 mg/dL [facility] Hematocrit Auto (Bld) [Volum e fraction]on 10-25-2023 Hematocrit (Bld) [Volume fraction] 39.8 % 36.0-48.0 [facility] Hemoglobin [Mass/volume] in Bloodon 10-25-2023 Hemoglobin (Bld) [Mass/Vol] 12.6 g/dL 12.0-16.0 [facility] INR in Platelet poor plasma by Coagulation assayon 10-25-2023 INR Coag (PPP) [Relative time] 0.99 {INR} [facility] Comment on above: DESIRED INR:2.0-3.0 CONDITIONS NOT LISTED BELOW2.5-3.5 FOR PROSTHETIC HEART VALVE REPLACEMENT2.5-3.5 RECURRENT THROMBOSIS Laboratory - Chemistry and C hemistry - challengeon 10-25-2023 Free T4 [Mass/Vol] 1.24 ng/dL 0.76-1.46 [facility] TSH Qn 1.497 m[IU]/L 0.358-3.74 0 [facility] Laboratory - Hematology and Cell countson 10-25-2023 HbA1c (Bld) [Mass fraction] 4.7 % 4.5-6.2 [facility] Comment on above: ADA RECOMMENDED LIMI T 4.0 - 6.0ADA THERAPEUTIC TARGET < 7.0ACTION SUGGESTED> 7.0 Immature granulocytes/100 WBC (Bld) 0.2 % 0.0-0.5 [facility] Leukocytes [#/volume] correc mini for nucleated erythrocytes in Blood by Automated counon 10-25-2023 WBC corrected for nucl RBC Auto (Bld) [#/Vol] 5.5 10 3/uL 4.0-11.0 [facility] Lymphocytes Auto (Bld) [#/Vo l]on 10-25-2023 Lymphocytes (Bld) [#/Vol] 1.8 10 3/uL 1.2-3.8 [facility] Lymphocytes/100 WBC Auto (Bl d)on 10-25-2023 Lymphocytes/100 WBC (Bld) 33.3 % 20.5-60.0 [facility] MCH Auto (RBC) [Entitic mass ]on 10-25-2023 MCH (RBC) [Entitic mass] 27.9 pg 26.7-34.0 [facility] MCHC Auto (RBC) [Mass/Vol]on 10-25-2023 MCHC (RBC) [Mass/Vol] 31.7 g/dL 29.9-35.2 [facility] MCV Auto (RBC) [Entitic vol] on 10-25-2023 MCV (RBC) [Entitic vol] 88.1 fL 81.0-99.0 [facility] Monocytes Auto (Bld) [#/Vol] on 10-25-2023 Monocytes (Bld) [#/Vol] 0.3 10 3/uL 0.3-0.8 [facility] Monocytes/100 WBC Auto (Bld) on 10-25-2023 Monocytes/100 WBC (Bld) 5.4 % 1.7-12.0 [facility] Neutrophils Auto (Bld) [#/Vo l]on 10-25-2023 Neutrophils (Bld) [#/Vol] 3.2 10 3/uL 1.4-6.5 [facility] Neutrophils/100 WBC Auto (Bl d)on 10-25-2023 Neutrophils/100 WBC (Bld) 57.8 % 43.0-75.0 [facility] No Panel Informationon 10-24 Eosinophils # (Auto) 0.1 10 3/uL 0.0-0.7 [facility] Human Chorionic Gonadotropin, Quant <1 mIU/mL [facility] Comment on above: 5-50 0.2-1 AZNE11-85 0 1-2 FJVMY073-1,000 2-3 ZYEIH682-86,000 3-4 WEEKS1,000-50,000 4-5 WEEKS10,000-100,000 5-6 WEEKS15,000-200,000 6-8 WEEKS10,000-100,000 2-3 MONTHS Immature Granulocyte # (Auto) 0.01 10 3/uL 0.00-0.03 [facility] Platelet mean volume Auto (B ld) [Entitic vol]on 10-25-2023 Platelet mean volume (Bld) [Entitic vol] 9.7 fL 9.5-13.5 [facility] Platelets Auto (Bld) [#/Vol] on 10-25-2023 Platelets (Bld) [#/Vol] 300 10 3/uL 150-450 [facility] Prothrombin time (PT)on 10-02 PT Coag (PPP) [Time] 10.5 s 9.0-11.6 [facility] RBC Auto (Bld) [#/Vol]on RBC (Bld) [#/Vol] 4.52 10 6/uL 4.20-5.40 [facility] Coding Summaryon 09-01-2023 Coding Summary HTMLBase 64 WpjfrispSVn0jNe+PGhlYWQ+ LS4RIPFgZ66jyNOcsI8oT6LF TElOSywgQVBQTElOSyIgbmFt XB8zqQWsZPLw IC8+FG3dXXNmNillgILlb2Z4 xTV9U36rpq5lUWhesDT0PRRh GmDyjgiqx9ppwNh2DBixJecz OyBt FNHvaJ32BHX5wN08Kk82iLYl cPVmb6ypkDr9SgSzKLVsJEP5 qGpuPSfqy9JmDMTtM63kjYWp c2U6 IRAudVzzcVYpVgAodXR6xT0f SLwyhnwdj1metynnZou8tu84 xGNuq3J4pBK6F1MmqeF0RTFx bGQg RfwqpOMHtD5rofppv9gartxt VfSyVSBfCXs7VMa2BWJihHfa WoKaBG14PVL3WKRpvjTxZ4Rq LWFs mQnxCbK5u9W9Aj6QL8YRKcge Q8SHVCAJWVaerNU+QX32dz86 D6PzZjdaJmd7SFSlFSC8aNQ1 aD0n GXZhIQcff1I5aDB4V9EbvuRu rj3is8muIQNqTCawW39xqQWo q8H2QUDivUX6SDOzsCjxWbLa aG93 Oyc+JLNbkVncq0CkIijkz6rf z3uznKq5KclvYCDdsbLveFia SUN4x7GuLb9kXOBhwQZ0pGM6 aD0i EfWfIfM6BEvuU721ZtDxaLGt KxpyN42iQ3DawAD+PHRyPjx0 EQYpaIryOE1sM2LzXFXzdasd bGVm sMvxUY2jINOxtmgmAVJlcJ8w KZFhA3l7TmCkUuX7NYkpQ2Uj XGVhhmwuJb98gX9rTgAzAcS4 MGlu P2AvwqW8TGIrfTJsHVsuGMF6 R12eu5T0FOXwWKBpIUU6cSN6 uR1jwSxwwgyyeJMgbUnnfrBu dGlj NUdsKFaaX721NJVecWokKlJa ZGluZyBEYXRlOiAgMDUvMzEv MjAyNDwvdGQ+QFNaDKQ5dHvs PSAn eJJuEElpJe5hnYbrnRhnQR1x MMQleijxTYRokO6nOFWdaHJb rYnxVF9zVOHuuvxcw580IjPf MHB0 RHFotTHuJ2RzcO7rGyTxWACs WEQhM6RzpHHgRZymS774XQpd XjD8RZTussSqA1FtZIObzRln OiB0 j0T2Wp2Yn2RpirypH2FdrQZp WnUeYuidYWs7K0KqIfqmvIF+ VI22ZZAxFN44PHy2BLP5tWnq PSdi RFLbM2FxlC4dJhCrGUJtXIDl Oyc+PHRhYmxlIHdpZHRoPScx NDYhXwKojLbrTS0aHw1nRWLg LWNv wIbuqLNwDdGge9voIZDkCGny DZ9quKztX7PmnCZ1OVYzz9j4 Wj49H60vK5GjaXI+PGNvbCB3 aWR0 eI6tHnMnQhH6HAwzA703EdSj gWDqJvanh0gna5tshHv1OkZ3 AGNauiQkzMpnYEE6p2IcUf66 Y29s IHdpZHRoPSIxNSUiIHZhbGln hy2xoE4fGh5+LGCicMQ1hUU3 dO2gCsVsSnS0ZUrqQ321DrDz cCIv Fnowr2kgp3usyIv4CpZpQOUo roOooUckPYB7w0PlTv39T2Qi vOlfq7JnNwp2tp42bJUbp9D1 bGU9 V3LbPBMuifguzIMfkPjwKO4w LFCxahwfMNKvyX9qNHMnJ1q8 XrCkZeW6KRnlG5UyyzW5JLTz bGQg YZAcwKSZfH4sfhfvx2djdgqd CnTbLGTnTHb1MVj5AYGvxFua MpAcGZT2XaV5EKL9jEFnaN6g bGln rkrsaO9gIwv+VEM1kPDkbSKE NI3mSnnsmIY+HCBrNHY6iSmt BNhcDIJvaR5eFVAhU3h4WgEh LjA1 FDqsS3FudwC9DMEtfIOiJXFb pYMKvF6kwevfc7uenjnsZfCw TPZqEMc4ZFt8NDHfmVukFwAr ZWZ0 YcO8TDU7tIYnvH6ftYjuxmhv oT1iDrm+HwstwZmrSRI8UWh0 P3WzHqh6FJLfjCluZD0ijKZh ZGlu Pz8jbXifrLrdAR6hSSApdxgu l601FoRns8sfLICnfSIxZIdl QID4W74dt2R1IEYnIJWtWJX1 dGV4 kY1prIgmhgfxnTHghKzixdCx eTnvOWxbKCaqW396JLXzgJcb JmZyNAe9F7OwYkb1GIAkxIfi ZT0n wDLyBLhnCn8oiUonbGweLO5b OINqoiwet322HrEef4euTRWx uCBhHRjkSQK8Q38vv8U8DXTn MDAw ZON7jAY4lZ6vrTxtrcmevZGy oIymkeVaoKhfQPpkNKqlX150 TDBeiTntHmHplOt7J6HpQjs2 ZCBz eNaoLN0vfCPjAMocDk8njCsh oDmwXQ2iSILalirfe519ImAe e5gkFUJayFBsTPfbOUA1F20i b3I6 UPMuJOYgBWY2kJK4qW4kvMgm bjogbGVmdDsgdmVydGljYWwt CNprX560YHGiaNdlVoHfiYpz bnQg RGkjBPy1D2ThDwriqVM+PC90 NCUlWH02yRNnhCLhh1tejHy0 DyIoJDRsFTR4nLjqJUvok8Dy ZXIt Z52pqMPuh5R0XXOwwIxyoWQp IyVueOS6aL1iNZmctxhsw1nc ghkuAyoff6islc88gU90I45r IHdp EMWqDOAnERTxJOHucJyorw7v mH0aEa7+XFNhvCT2wXI3gO6g MIHvZiL3QYicA672StCepKTy Pjxj v1mzn3dnmMd8MhD8ZEKrajUw yQbzKMG1i6ZdAr20X26bBQlf HSJfONLjKTPbSDOliDqnkg1k dG9w Ii8+TXEndAA1eKX4hG7tAaRf UaR3ZQoaK596YqBkpBViDsvr X01dY1DqnES+FCOdTke5BNZc dHls GE5tcTKkMUafOv2eUKM6QtKh UzSsCWvcB8FmVRFghmrybssu nLK5EPCkXEIbzH21Uj4hyOet MTBw gBKMwH7hnvemo6aanunjYwHb ZBOxTUq4ZXt4PTEebTdmBiPj MKW3LdR2JQZ4uDDisW1fdQgd bjog hF2iU1HcJTLcfqyvZx70uC7g UuAsPsG1SJxzGan+D88KJ5kD LCBBTUFOREEgREFXTjwvdGQ+ PHRk IBY3bSmySEplGYCygM9dPFNj J0u9UbXeRmK6CKrtX9CfTFTl yvzvHb12gH0vUgUmDwO6DUpm O2Zv ogA8RCLceGTbBEbmQXM0W56f h0M3JCBcFNIkFFW3wKB9tA5x bGlnbjogbGVmdDsgdmVydGlj YWwt JIraX999ZQGwbPqwJwT7AiUb FpZ0ZJW0L7KaJrx7KSGalBoe OM9rrFXrJGqbUv0dtFnlzVsr MC4w CKJouejdVTLfeU8cDZVgdTIw bEyiSL7mVZGazxsqg185AbYt HHA7JWQfzJFtQ2UyiE8pVrKg MDAw KIGqV6NpkEKvXKvrF984TUaq AhN5QXKgcbCpJ9HeHMTwwQct DgX0f0L2Sz12SFPPSLZknaqm dGQ+ SAEkISX5oUojRUuzKFKdtL4m GQLbG8m0FvYbYlJ3DYifZ7Jb OBJilqupZw94rG7eLfTaShN8 MGlu R7JttiA7DSRuaWUvCFjxFDV0 R62bu0B5TEQzXLRfAXY1bQS3 eV2uqSycwovblXFiiTnjkjCf dGlj XKodNLxnL122EHIvmGwrZzXE TUFMRTwvdGQ+BIOlIRG1nGts GFoaSWWwvL9hJEXpI5u5McJp LjA1 VLqiV0NsSDBgshpsDp24qI3p KzGxQxP1GZteS4BoslY9CMIf pDDmKTrdXFV1I15qe7A5YRVn MDAw VYY0zHM5rV5zzAjaevjciMIy yBdypgDucKgrJJrrVLbqY370 OZUalAmuJf8EHC63MI80T8Pi Pjwv dGFibGU+PHRhYmxlIHdpZHRo LIngRKGxRhLfmQuqGL0dEc3s ZQGsEWYieKepnDKaGsDio2he YXBz ANabDP6szNreP2QbjDJ3SDAz q3u8Ui63D92oD4ZyuHQ+PGNv jCF2vYU0yR5dPkRlIqP6DBlv Z249 VuCemUWnHcirl1nmw1sdkDt3 JvSgOTIetmWnuTmqTRV2k7Bp Zr00D84kUDknXHYvDRMcRFFn IHZh iAsfxm6gfX2xUi4+PGNvbCB3 zTF1gA5rKsBtLbD7VIbyN228 DuQwtHKbOmmlY62gF6NcqHI+ PHRy Xui9XPOndYmfVD3vdYDgPNnm Hw3kTLX7BdZwXqXzHAljY2Mm AQOclrxgqqqfcIH4QCYcNYDg aW47 Bx8enYzzEd8cJLRfDZS1FIKs pIUnZ2MfuZ4uCkFyKSJyYSDl Q2YpkSGaUPkjD178MMauJvV5 IHZl kxQgD8IeVOAkyEboTbF3k2Z8 Lo8OzOpnrFBhVL5vEbKsZCs5 N7JjRip7WOWyhSckLD9elLRo ZGlu Nv1hcQmpqVjnXB7lZINvepyj b291AuYaz4ktURZjfCFjBKvb SEQ1M09wd3B9HKQtFIWwBII2 dGV4 gI6dyWwtobbpsTDgxJdcjmUt rEowNUzhOCyqA086YGCfiBar MmQXHqy5Q3DiIvj6OYDytUrn ZT0n aHKfDJkaTx8dvWitlDziQT0k MQMznhltt637IqBtt8kkXYWt mYMuDJyaJWC6U53go0I7WQEq MDAw NPB1xDJ1iD8qjRypqytoeBHl mDbopfVhmIwkKGlpRPnqT033 GCSnlIrdOl5PAru7X1VaCoa7 ZCBz iVeuBX2cyISqQKcuQp7rhAtc dXtdFE8uTOYarsavk589KzRs i6giUKAumETxYXwxQBD0I85n b3I6 AWSsHGSeSIF8kPA2cD0wwCjy bjogbGVmdDsgdmVydGljYWwt IRlmD437TKZkiFqeXhKaeILj Ojwv dGQ+CX19bu05F3RrSfgvZpk6 LFYxDHA0kUT5fT6mJGXzMVsz u5Z5uFA9C9DddmSwsl6yk3tx YXBz ZTo (more content not included)... Normal [facility] ED Clinical Summaryon 2023 ED Clinical Summary [facility] ? Urgent Care [address] [place], [place] [id number] Clinical Summary PERSON INFORMATION Name: KARUNA DUMONT Age: 42 Years Sex: FEMALE : 1980 MRN: Acct#: Visit Reason: Skin problem; RASH ON ARMS Arrival: 08/23/2023 14:45:23 Discharge: 08/23/2023 15:20:00 LOS: 000 00:35 Check In: 08/23/2023 14:45:23 Checkout: 08/23/2023 15:20:00 [facility] [address] PCP: Johnathon Winter MD PROVIDER INFORMATION Provider Role Assigned Unassigned Phuong Oseguera LPN [employer] Nurse 08/23/2023 14:46:59 Yissel Resendez PA-C ED [...] With: Address: When: Johnathon Winter MD [address] [place] [address] [id number] DIAGNOSIS: 1:Rash and nonspecific skin eruption; 2:Elevated blood pressure reading without diagnosis of hypertension Patient Understands: Comment: Normal [facility] ED Patient Summaryon 024 ED Patient Summary [facility] ? Urgent Care [address] [place] [id number] PATIENT DISCHARGE INSTRUCTIONS Patient Information Name: KARUNA DUMONT Age: 42 Years Date of : 1980 Reason For Visit: Skin problem; RASH ON ARMS Arrival Time: 08/23/2023 14:45:23 Primary Care Physician: Johnathon Winter MD Attending Physician: Yissel Resendez PA-C Comment: Patient Education With: Address: When: Johnathon Winter MD [address] [place] [id number] Rash, Adult A rash is a change [...] with your condition: Medicine Take or apply eufo-atj-ffqxjom and prescription medicines only as told by [...] a bath with: ? Epsom salts. Follow digital asset coordinator instructions on the packaging. You can get these at your local pharmacy or grocery store. ? Baking soda. Pour a small amount into the bath as told by your health care provider. ? Colloidal oatmeal. Follow digital asset coordinator instructions on the packaging. You can get this at your local pharmacy or grocery store. ? Try applying baking soda paste to your skin. Stir water into baking soda until it reaches a paste-like consistency. ? Try applying calamine lotion. This is an sqrh-wrd-fmbzzyw lotion that helps to relieve itchiness. ? [...] rash from spreading. ? Take or apply ainf-orn-tcjmikd and prescription medicines only as told by your health care provider. ? Contact a health care provider if you have new or worsening symptoms. ? Keep all follow-up visits as told by yo (more content not included)... [facility] 05-23-2023 L Specimen: [id number] Received: 05/24/23 Status: NATHAN Guzmán Num: [id number] Spec Type: Surgical Subm Dr: Tee Peterson MD Tissues: A BREAST CORE NO CALCS (LT BREAST) Procedures: HE/4, Gross/Micro L4, AE1-AE3/2 Age/ Patient Sex Location Account Attending Physician Karuna Dumont 42/F [facility] [id number] Tee Peterson MD SPEC NUM: [id number] RECD: 05/24/23 STATUS: NATHAN GUZMÁN NUM: [id number] GENEVA: 05/23/23 DR: Tee Peterson MD ENTERED: 05/24/23 [facility] DR: Sandra Noel SPEC TYPE: Surgical [...] Time: 0.10 Formalin Fixation Time: 28.50 Specimen: [id number] Received: 05/24/23 Status: KASIEKiet Guzmán Num: [id number] Spec Type: Surgical Subm Dr: Tee Peterson MD Tissues: A BREAST CORE NO CALCS (LT BREAST) Procedures: MELANIE/Shanique, Gross/Micro L4, AE1-AE3/2 Patient: JuliaKaruna D [id number] (Continued) Specimen: [id number] Received: 05/24/23 (Continued) Signed (signature on file) Tootie Jordan MD 05/31/236 Specimen: [id number] Received: 05/24/23 Status: NATHAN Guzmán Num: [id number] Spec Type: Surgical Subm Dr: Tee Peterson MD Tissues: A BREAST CORE NO CALCS (LT BREAST) Procedures: HE/4, Gross/Micro L4, AE1-AE3/2 Patient: Karuna Dumont [id number] (Continued) Specimen: [id number] Received: 05/24/23 (Continued) CPT Codes 67302 Specimen: [id number] Received: 05/24/23 Status: NATHAN Burnsroberto Num: [id number] Spec Type: Surgical Subm Dr: Tee Peterson MD Tissues: A BREAST CORE NO CALCS (LT BREAST) Procedures: MELANIE/Shanique, Gross/Micro L4, AE1-AE3/2 Patient: Karuna Dumont [id number] (Continued) Signed (signature on file) Tootie Jordan MD 05/31/232105 Normal [facility] MR LUMBAR SPINE [...] Yung Perry on 05/23/2023 12:47 PM [facility] Free testosterone measuremen t by LC-MS/MSon 05-10-2023 Testosterone Free [Mass/Vol] 0.6 pg/mL 0.0-4.2 [facility] Comment on above: Performed at: [address] [id number] Director: Theron Roblero PhD, Phone: [phone] at: [address] [id number] Director: Katelynn Macdonald MD, Phone: [phone] No Panel Informationon 05-10 C-Peptide 2.8 ng/mL 1.1-4.4 [facility] Comment on above: C-Peptide reference interval is for fasting patients.Performed at: [address] [id number] Director: Theron Roblero PhD, Phone: [phone] Dehydroepiandrosterone Sulfate 194.0 ug/dL 57.3-279.2 [facility] Free Cortisol, Dialysis, LCMS 0.787 ug/dL . [facility] Comment on above: These tests were dev eloped and their performancecharacteristics determined by [facility]. They have not beencleared or approved by the Food and Drug Administration.Reference Range:8 AM 0.10 - 1.204 PM 0.042 - 0.872Performed at: [facility] [id number] [place], [place] [id number] Director: Kal Archibald MD, Phone: [phone] Reverse Triiodothyronine (T3) 23.0 ng/dL 9.2-24.1 [facility] Comment on above: This test was develo ped and its performance characteristicsdetermined by [facility]. It has not been cleared orapproved by the Food and Drug Administration.Performed at: [address] [id number] Director: Katelynn Macdonald MD, Phone: [phone] Sex Hormone Binding Globulin 49.1 nmol/L 24.6-122.0 [facility] Comment on above: Performed at: [facility] [id number] Director: Theron Roblero PhD, Phone: [phone] Testosterone Level 22 ng/dL 8-60 [facility] Plasma serotonin measurement (mass/volume)on 05-10-2023 Serotonin (P) [Mass/Vol] 105 ng/mL 31-207 [facility] Comment on above: This test was develo ped and its performance characteristicsdetermined by [employer]. It has not been cleared orapproved by the Food and Drug Administration.Performed at: [facility] [id number] Director: Katelynn Macdonald MD, Phone: [phone] Serum estrone measurementon 05-10-2023 E1 [Mass/Vol] 65 pg/mL 27-231 [facility] Comment on above: Range Adult (Premeno pausal) 27 - 231 Menstrual Cycle (1-10 days) 19 - 149 Menstrual Cycle (11-20 days) 32 - 176 Menstrual Cycle (21-30 days) 37 - 200Performed at: [email or web address] [address] [id number] Director: Katelynn Macdonald MD, Phone: [phone] Serum or plasma estradiol (E 2) measurement (mass/volume)on 05-10-2023 E2 [Mass/Vol] 98.9 pg/mL . [facility] Comment on above: Adult Female Range F ollicular phase 12.5 - 166.0 Ovulation phase 85.8 - 498.0 Luteal phase 43.8 - 211.0 Postmenopausal <6.0 - 54.7 1st trimester 215.0 - >4300.0Roche ECLIA methodology Serum or plasma insulin mariam urement (units/volume)on 05-10-2023 Insulin Qn 7.0 u[iU]/mL 2.6-24.9 [facility] Comment on above: Performed at: [facility] [id number] Director: Theron Roblero PhD, Phone: [phone] Serum or plasma progesterone measurement (mass/volume)on 05-10-2023 Progesterone [Mass/Vol] 0.1 ng/mL . [facility] Comment on above: Follicular phase 0.1 - 0.9 Luteal phase 1.8 - 23.9 Ovulation phase 0.1 - 12.0 First trimester 11.0 - 44.3 Second trimester 25.4 - 83.3 Third trimester 58.7 - 214.0 Postmenopausal 0.0 - 0.1Performed at: [employer] [address] [place], [place] [id number] Director: Theron Roblero PhD, Phone: [phone] Serum or plasma thyroperoxid ase antibody assay (units/volume)on 05-10-2023 TPO Ab Qn 11 [IU]/mL 0-34 [facility] Thyroglobulin [Mass/volume] in Serum or Plasmaon 05-10-2023 Thyroglobulin [Mass/Vol] <1.0 [IU]/mL 0.0-0.9 [facility] Comment on above: Thyroglobulin Antibo dy measured by June[facility] BiosciencesMethodologyPerformed at: [employer] [place], [place] [id number] Director: Theron Roblero PhD, Phone: [phone] XR LUMBAR SPINE AP, LATERAL, FLEXION AND [...] by Yung Perry on 05/05/2023 1:28 PM [facility] Coding Summaryon 03-20-2023 Coding Summary HTMLBase 64 IwrztocjXJn2tMc+PGhlYWQ+ ZY3TZYGeQ13ybZItnM3wJ9IS TElOSywgQVBQTElOSyIgbmFt CR3zgTUdPRLp IC8+ZA7oSPSlSxzfbARqp9T8 vZB7V12vft3vZZdquVV0COQf JnVeabezr7fygGh5OUbgLyex OyBt EFNhdK85VYR4gC75Zv36eTGp nBQll8rngMx1HkZeZTQpXIN9 jYbeXUggs4EyKWLcY10rxSBm c2U6 WOKkiCkbrMUnSlYazPC9xZ0x XRvvlivbj0hmbttaBua9sm18 tCMnf2P4zLM6T9TaygH6FTRj bGQg BoctlNCBzF4drpzhs0gkprvn FjByPAGdUEb4DTt7KWQukFwf PwJtEC16NLF7MYFcetEkC2Ir LWFs fZqeQgC7z2H1Xh4DI4FLGrvz A5NVRMJOBRlwpRI+DQ63ij17 B8JgBpqfTjg7UKIgKQW2kNI2 aD0n RNZnNKcwn1G5rRB4E2XzozYq ge8id5lyTMRkSXrfH57peHMa s7F5CPToiVT2YVZpwHgyKuVk aG93 Oyc+RAHprPfjg0ObMenip0of b8zueIw1TtgkSJOlbeSqpFbw BMN3g1YpLc4rYCXxaZB6rYU9 aD0i MkXhFpD9XYxtD184YkXjxXYf XwzqT42oK8MuiER+PHRyPjx0 HFEeiRsnZN3vC0MiSBAjgiha bGVm sIohJO6qYUPtpjafJULrfB8t PYPpJ5e2AaIdMyA2BDctX3Ox QLYsuhfjSm17fO9zMeHgZnO1 MGlu N4YqvpP5YWYqvLToOOpkFHB1 U04sq0C5XMRmJNMkEDN1xGH5 oK3vwLttapaqgOIjpNxozhVn dGlj RNilCTjoA059HNWuwZjqUeNx ZGluZyBEYXRlOiAgMTIvMTgv MjAyMzwvdGQ+FTZtFXY9yFas PSAn pWQzLNvpPf4uvZskhFlpKK1c ABPjmqjyLCYwhU5iWFVxpHCh dXasZF7qVUDhdmbjq697ZhAh MHB0 PRWjrGEjI2BejR7zMkDnQCIu GFTnT5EjuCZwKHuvR661TJuz GrJ7BOXeyxXzI7YmSPCbmQom OiB0 s0J8Nq1Da5BipzmvP3VtaCSc CcSiPxgdEKt6G7UvFfierLA+ WJ73URIyAV94XLy0QLL1uDvp PSdi WXSvK4VddM7vSwPbQUKrXNKz Oyc+PHRhYmxlIHdpZHRoPScx UIOrKrUoiRabVZ8uHq9pBCQj LWNv eZqbvLFrJjTyj2tyNBKzQWyo NB7rfYemJ1NpfEA3GZOoy0s4 Ir34X43uM7KiaFF+PGNvbCB3 aWR0 nT8oGvXwEuE6IOagG094EyGb vRZjOdtav5qtm0ssvBq4SaY0 OUPcyqOvmIxvNWV2d9LmWa52 Y29s IHdpZHRoPSIxNSUiIHZhbGln di7gmL4yUe8+VGGdrQY7kUL9 lG8qUqEtRlO2BReqN367JiEw cCIv Juywa1kqe3nsuNd9LoZfKBTg wjPboSlzZEX9d7HdHu16Q2Ji jRhbg6SkJhq9lb15rYKnj1K7 bGU9 D0RkQWLyxpelcZPodOnzGY0y OTVfsqvwAAHhsP9kZCNuE1m7 RaQkBxK9XMcsB9XpddT1OWSr bGQg MYMhiLAWbU6qpsslc4zdyysd JoVmJUIkMAr8TYr7SGByfKor VaBzRPR7CdV9YUV0pTXifU5v bGln kfdcwM5aWxs+INT7cINyuSDB YN3lSzdmsPS+NZPhRNL1eRzb KQwzYRXuqM7mTHVdO2v5QeJi LjA1 BMpvM8CelvK5KWFqnGHlRSCe hNJRaR7lqifsd9dascfyDkEs RQWjYWw9UCb3LHAfqUskWmZe ZWZ0 ZhV3ATE3pDXksO8kmVocvrsj jO7xVac+VjqklKwfKPL6CXd4 V6HzLqb2DERwyBuvOL6umGQi ZGlu Sw1fkOfqgXtnNX1hTPMjopxu l718TrZnn6tpKOXbzVCiAJin QSU3S80wb5Z5XZMnUZRgMNY2 dGV4 sQ3qtWjkmahhyUZnjYmoawKz rIerCUxhWBeyM433BQEsqKza NsSxWQe0W8LkRka8ZERibVuw ZT0n tRWxDYyfOb6umBmzgBloZQ7e YRCjmryly124ItZpp7twZSEa bEPtBCrzCBJ9K78ju1F6DVVm MDAw OWR7aYP5zZ0grAyomjwlrFGu pUejfuWaaPygSWufXTzqC260 AFCxaEetHvMfpRo5L8JgDps0 ZCBz rJztPK3kyDYcACafEw3wsRoc eSerCG3yPCRaflrzd810TtPt h8dxOHPqkUQyNRdvJNT1A33b b3I6 RHGhBVQhBVA2zKE3oK3nbOiy bjogbGVmdDsgdmVydGljYWwt BFzgH475ZDOfkBwwGhOvkHtw bnQg MAvwIPk6B9NgLgrbxAL+PC90 ZDQlHG62lCXasTItq7tolGr9 GsLfSLYmCOJ5tWcpRTcjl8Gd ZXIt Q20lgGDzc8E3RPTyaBficRJd SgOsaOR2oJ1iLAdizhjba4am gtxnIetzy9gzmy83pO39Z83s IHdp CVHjJECoSXQeMALehVdvnq8q gR9yKr2+YAMwfYD2zDC2sJ8s TXIeFqB1VDxjK044RiOqjKIs Pjxj e1tru1ooaWv0OyH7PPMkimOh wNrrOZJ6g5NjOz28P73cFQsj ZWPpCZFvOJEmRSNblNpeft0l dG9w Ii8+FROeuNH7oMJ3zB2oYsDv DdX1SVmiZ055CbVdtOMaSsnn R67cZ6WrzQH+PEZfQom2QXHr dHls FX1jgXQcEAeuJp9sKYV5VeSe TrNsTLfuB0NsWIJqwmcjngus cUH3LUMyUSYxgF12Tw8hdMam MTBw bCMNtR4lepibb7sosnujGnEy XSCwHWv2KSx2VCFieYvtZfAv ADS0AuB8VFJ3mIDoyA0nmJbu bjog hT9eP5KfOZJwrcahXq30lE6s ZxPvDfJ7UUwlXej+H07EB0lV LCBBTUFOREEgREFXTjwvdGQ+ PHRk MMZ7zUiiUHkxMJLtlG2dQGSk Q3r4VnFcGnC5AFbaP0NhFCZm gnyiHk42jX6aQeNuOfS1WEja O2Zv jwY9YSVaaDHzQJocMNP1R55o n9U0RZVuALZbAER3rKD2uS6q bGlnbjogbGVmdDsgdmVydGlj YWwt GVtcJ278HBYkyCitVjE6LuGi AsE0HZW2T3YhYbj6YRBqdCbw VT3nnJLcOOwjDx6rnSmzoSsf MC4w JVXzvgfcUNMxlK5eNGAdxDVb zUsmUM9tGSIyakgpq522ZkNt TKB7UAXmdQYsM0WxmR3oKyIi MDAw FMWfJ6MaiZWwVHutY249IKmg DeM5RYWzjoLbQ2DlSTBgtDna EuV8r2R7Bv40YRTOAIMuiowg dGQ+ QWLhBFW1sBdhCBizQDEdjQ6x LFWdF5v8KyLbHuF4YFfnU0Ay AZFkubmhUq23oQ7bBlPtJdQ4 MGlu A7VhhgK8HQHofMRtYAxeSUR5 R45jz0L1UKQhRNUoRVU3qUD6 fI2uzJfrlonwaQIrqVofvdGd dGlj XCmlNUivK689MZLufIkmYxFN TUFMRTwvdGQ+KMOsWPF7vByj XHzuYJHboK4iOBIhY5w8MtIj LjA1 CNqiN1ZvBNCtlwgsNi97wQ6q MiGhJnS0DNubE1IqupU4YHQy jONkJFtdNPL4D97la1L4MBHn MDAw FTQ6lQH2uU2gfAfxvlwltFJi nQlttbOzdFtrCVkvLWqnC606 UEQxqEowVc8BVR22FL22Y7Xs Pjwv dGFibGU+PHRhYmxlIHdpZHRo OHxrJQMaKwOzlWaxFU6eEt0b JCWaYVYiiEgkzUTjCtGgz8wx YXBz GEphPH4pfYoiC8CiiJB6JIHl n7w5Cg63P34oU3NjmQE+PGNv ySF7dGR4yE4wPiPoThM8RPyf Z249 AnSvhPEpCybpm7gqt4sosNf6 YtQrGLZcltAlrUziTRW4b5Mz St59A56bYMagYQWnPRPrQRTw IHZh vRulov3dbD7lTh4+PGNvbCB3 rGV6uD2gRpXgYuU9ITkkO145 OqCrfKKxJpgzV29pS5IgwPZ+ PHRy Nfz8RCLawWjiQS5juKYgVAhs Eb5mIMP1ZiGpJlMvZJykY3Rg BLOajnwexgeyaQQ4ALGnPWAr aW47 Rf4zvAwsLz2yLZRfDKT7SVWw eRBjR1JmbR3zImLpYEQuOSCx R7XibTXmFDzdT075VAaaRyV6 IHZl qeQxP7VySVSdmXvuKnU0d7N8 Xy8QlPwtwTBdBA6tOyIaNFr8 F2AvKkg1ZMRdzOgbBY1eoDRq ZGlu Vx2qlAfepZmeEQ4iKRWsevbd f065KiHhj8fwVYLlbXFgCXow KKN7S70ud8V6GLPlTWBaOPX7 dGV4 sK6epRtqwqotsOIwgLonkwKx pPcrMAifLCchG895PPGadPwf RcVZHxu1A4WzTcq9VUYqgJht ZT0n yELfWFzaMx5ixPrybOlkIE7c WUKzezvbo691UfSuw7lyONVx xAKtIOihLZC8L75sn5Z2TKZz MDAw BHX7lQJ2pN4jsNdztylstHFw hWfpwuHbfSsaQVtsNDsgG045 TJBzrWmdAm8QFck4N0ZnQpl2 ZCBz vPdeTB8dbWPlMTspAc0pgGvk rYglHW1yCSSppwpwc318DmTw i3wwBBBfvRJoIKfjWNQ3F14k b3I6 HRYwQLVtFHR5tAE9hS4edUdg bjogbGVmdDsgdmVydGljYWwt BXvwU302HBUmpVthTqYccOYb Ojwv dGQ+UY70na30L9EiWwlnJxv1 JQNqJGY5xAS1xF3hRJCbUVpg n4V5mQS1M7YswlNhrm0wv7xu YXBz ZTo (more content not included)... Normal [facility] ED Clinical Summaryon 2022 ED Clinical Summary [facility] ? Urgent Care [address] [place] [address] Clinical Summary PERSON INFORMATION Name: KARUNA DUMONT Age: 42 Years Sex: FEMALE : 1980 MRN: Acct#: Visit Reason: UC - Finger/Thumb Injury; RT RING FINGER INJURY Arrival: 03/09/2023 10:15:32 Discharge: 03/09/2023 12:03:00 LOS: 000 01:48 Check In: 03/09/2023 10:15:32 Checkout: 03/09/2023 12:03:00 [facility] [address] PCP: Johnathon Winter MD PROVIDER INFORMATION Provider [...] Follow-Up: With: Address: When: YUNG LAWS DO [address] [place] [address] Within 3 to 5 days Comments: [...] verbalizes understanding of instructions given Comment: Normal [facility] ED Patient Summaryon 023 ED Patient Summary [facility] ? Urgent Care [address] [place], [place] [id number] PATIENT DISCHARGE INSTRUCTIONS Patient Information Name: KARUNA DUMONT Age: 42 Years Date of : 1980 Reason For Visit: UC - Finger/Thumb Injury; RT RING FINGER INJURY Arrival Time: 03/09/2023 10:15:32 Primary Care Physician: Johnathon Winter MD Attending Physician: Sanchez John Comment: Patient Education With: Address: When: YUNG LAWS DO [address] [address] Within 3 to 5 days [...] or cold (more content not included)... Normal [facility] Urgent Care [place] 023 Urgent Care Record [facility] ? 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 It is important for you to follow up with a doctor, nurse practitioner, or physician?s assistant teaching professor for ongoing care. If your symptoms become [...] so we can reach you if necessary. [facility] has provided you with a complete list of medications post discharge. Please inform your computer operations analyst/provider of your visit and for further instruction [...] of your st (more content not included)... Normal [facility] XR Finger Righton 03-09-2023 XR Finger [...] Vannesa DANGELO [facility] No Panel Informationon 10-11 No acute bony abnormalities are noted [facility] EXAMINATION: THREE XRAY VIEWS OF [...] well maintained. Soft tissue swelling. Calcaneal spurs [facility] Miller Romo MD - 10/11/2022 [...] No acute bony abnormalities are noted [facility] Radiology Study observation (narrative) [facility] No Panel InformationOrdered By: Miller Romo on 10-11-2022 [facility] Work Phone: XR ANKLE RIGHT (MIN [...] Miller Romo MD 10/11/22 Final result Normal [facility] XR FOOT RIGHT (MIN 3 VIEWS)o [...] Miller Romo MD 10/11/22 Final result Normal [facility] PAP ACOG PANEL 2: 30 to 65on 07-16-2022 . . Normal [facility] Comment on above: Result Comment: Perf ormed at: WB Performed By: #### [id number] #### [facility] [address] [address] [address] Dang Kirby Age Gdln ACOG Testing 30-65 Normal [facility] Comment on above: Performed By: #### 4 [id number] #### [facility] [address] [address] [address] Dang Kirby DIAGNOSIS: Comment Normal [facility] Comment on above: Result Comment: NEGA TIVE FOR INTRAEPITHELIAL LESION OR MALIGNANCY. THIS SPECIMEN WAS RESCREENED PART OF OUR REPAIR TECHNICIAN PROGRAM. Performed at: WB Performed By: #### 4 [id number] #### [facility] [address] [place] [address] Dr. Dang Kirby HPV Aptima Negative Normal Negative [facility] Comment on above: Result Comment: This nucleic acid amplification test detects fourteen high-risk HPV types (16,18,31,33,35,39,45,51,52,56,58,59,66,68) without differentiation. Performed at: =G Performed By: #### 4 [id number] #### [facility] [address] [place] [address] Dr. Dang Kirby HPV Genotype Reflex Comment Normal [facility] Comment on above: Result Comment: Crit eria not met, HPV Genotype not performed. Performed at: WB Performed By: #### 4 [id number] #### [facility] [address] [place] [address] Dr. Dang Kirby Methodology: Comment Normal [facility] Comment on above: Result Comment: This liquid based ThinPrep(R) pap test was screened with the use of an image guided system. Performed at: WB Performed By: #### 4 [id number] #### [facility] [address] [place] [address] Dr. Dang Kirby Note: Comment Normal [facility] [...] Performed at: WB Performed By: #### 4 [id number] #### [facility] [address] [place] [address] Dr. Dang Kirby Performed by: Comment Normal [facility] Comment on above: Result Comment: Flavia Stanford, Communications Designer (ASCP) Performed at: WB Performed By: #### 4 [id number] #### [facility] [address] [place] [address] Dr. Dang Kirby QC reviewed by: Comment Normal [facility] Comment on above: Result Comment: Valentino Victor, Communications Designer Performed at: WB Performed By: #### 4 [id number] #### [facility] [address] [address] [address] Dang Kirby Specimen adequacy: Comment Normal [facility] Comment on above: Result Comment: Sati sfactory for evaluation. No endocervical component is identified. Performed at: WB Performed By: #### 4 [id number] #### [facility] [address] [address] [address] Dang Kirby MG MAMM DIAGNOSTIC 3D RAMA CA Don 04-29-2022 MG MAMM DIAGNOSTIC 3D RAMA CAD Patient: KARUNA DUMONT Exam Date: 04/29/2022 : 1980 Gender:F Ordering : DR SANJEEV LOPEZ . Admission #: [id number] Family : Order #: [id number] CLICK HERE TO VIEW EXAM RADIOLOGY REPORT PROCEDURE: MAMMOGRAM DIAGNOSTIC 3D BILATERAL CAD, 04/29/2022, 10:05 ULTRASOUND BREAST RIGHT LIMITED, 04/29/2022, 11:04 COMPARISON: None. INDICATIONS: Pain of breast Calculator Name NCI Breast Cancer Risk Assessment Tool 5 Year Breast Cancer Risk Not Reported. Lifetime Breast Cancer Risk Not Reported. Personal Breast Cancer No Personal Ovarian Cancer No Treatments None Family Cancers None LOCATION: [facility] BREAST COMPOSITION: Scattered areas fibroglandular density. [...] : DR SANJEEV LOPEZ . Admission #: [id number] Family : Order #: [id number] CLICK HERE TO VIEW EXAM RADIOLOGY REPORT PROCEDURE: MAMMOGRAM DIAGNOSTIC 3D BILATERAL CAD, 04/29/2022, 10:05 ULTRASOUND BREAST RIGHT LIMITED, 04/29/2022, 11:04 COMPARISON: None. INDICATIONS: Pain of breast Calculator Name NCI Breast Cancer Risk Assessment Tool 5 Year Breast Cancer Risk Not Reported. Lifetime Breast Cancer Risk Not Reported. Personal Breast Cancer No Personal Ovarian Cancer No Treatments None Family Cancers None LOCATION: [facility] BREAST COMPOSITION: Scattered areas fibroglandular density. [...] M.D. on 04/29/2022 at 14:55 Normal [facility] CT CERVICAL SPINE WO CONTRAS Ton [...] Oziel Fox MD 02/16/22 Final result Normal [facility] XR CLAVICLE LEFTon XR CLAVICLE LEFT EXAMINATION: [...] Miller Romo MD 02/16/22 Final result Normal [facility] XR SHOULDER LEFT (MIN 2 VIEW [...] by: Emil Flores MD Signed by: Emil Flroes MD 02/16/22 Final result Normal [facility] CBC with Auto Differentialon 01-03-2022 Absolute Eos # 0.10 [facility] Absolute Lymph # 1.60 [facility] Absolute Payne # 0.40 [facility] Basophils (Bld) [#/Vol] 0.00 10*3/uL [facility] Basophils/100 WBC (Bld) 1 % 0 - 2 % [facility] Eosinophils/100 WBC (Bld) 2 % 1 - 4 % [facility] Hematocrit (Bld) [Volume fraction] 46.0 % 36 - 46 % [facility] Hemoglobin (Bld) [Mass/Vol] 15.4 g/dL 12 - 16 g/dL [facility] Interpretation and review of laboratory results Abnormal [facility] Lymphocytes/100 WBC (Bld) 29 % 24 - 44 % [facility] MCH (RBC) [Entitic mass] 28.6 pg 26 - 34 pg [facility] MCHC (RBC) [Mass/Vol] 33.4 g/dL 31 - 3 7 g/dL [facility] MCV (RBC) [Entitic vol] 85.9 fL 80 - 100 fL [facility] Monocytes/100 WBC (Bld) 8 % 2 - 11 % B [facility] Platelet distribution width (Bld) [Ratio] 14.1 % 12.5 - 15.4 % [facility] Platelet mean volume (Bld) [Entitic vol] 7.6 fL 6 - 12 fL [facility] Platelets (Bld) [#/Vol] 277 10*3/uL [facility] RBC (Bld) [#/Vol] 5.36 10*6/uL High 4 - 5.2 m/uL [facility] Segmented neutrophils/100 WBC (Bld) 60 % 36 - 66 % [facility] Segs Absolute 3.40 [facility] WBC (Bld) [#/Vol] 5.6 10*3/uL [facility] CBC with Diffon 01-03-2022 Abs. Basophil 0.00 k/uL Normal 0.0-0.2 [facility] Comment on above: Performed By: #### H CG, LIP, MG, CDP, CMPX #### [address] [address] [employer] Salesperson: Estevan Corcoran MD Abs.Neutrophil (Seg) 3.40 k/uL Normal 1.8-7.7 [facility] Comment on above: Performed By: #### H CG, LIP, MG, CDP, CMPX #### [address] [address] [employer] Salesperson: Estevan Corcoran MD Basophils/100 WBC (Bld) 1 % Normal 0-2 M [facility] Comment on above: Performed By: #### H CG, LIP, MG, CDP, CMPX #### [place] [address] [employer] Salesperson: Estevan Corcoran MD Eosinophils (Bld) [#/Vol] 0.10 10*3/uL Normal 0.0-0.4 [facility] Comment on above: Performed By: #### H CG, LIP, MG, CDP, CMPX #### [place] [address] [employer] Salesperson: Estevan Corcoran MD Eosinophils/100 WBC (Bld) 2 % Normal 1-4 [facility] Comment on above: Performed By: #### H CG, LIP, MG, CDP, CMPX #### [place] [address] [employer] Salesperson: Estevan Corcoran MD Erythrocyte distribution width (RBC) [Ratio] 14.1 % Normal 12.5-15.4 [facility] Comment on above: Performed By: #### H CG, LIP, MG, CDP, CMPX #### [place] [address] [employer] Salesperson: Estevan Corcoran MD Hematocrit (Bld) [Volume fraction] 46.0 % Normal 36-46 [facility] Comment on above: Performed By: #### H CG, LIP, MG, CDP, CMPX #### [place] [address] [employer] Salesperson: Estevan Corcoran MD Hemoglobin (Bld) [Mass/Vol] 15.4 g/dL Normal 12.0-16.0 [facility] Comment on above: Performed By: #### H CG, LIP, MG, CDP, CMPX #### [place] [id number] [employer] Salesperson: Estevan Corcoran MD Lymphocytes (Bld) [#/Vol] 1.60 10*3/uL Normal 1.0-4.8 [facility] Comment on above: Performed By: #### H CG, LIP, MG, CDP, CMPX #### [place] [address] [employer] Salesperson: Estevan Corcoran MD Lymphocytes/100 WBC (Bld) 29 % Normal 24-44 [facility] Comment on above: Performed By: #### H CG, LIP, MG, CDP, CMPX #### [place] [address] [employer] Salesperson: Estevan Corcroan MD MCH (RBC) [Entitic mass] 28.6 pg Normal 26-34 [facility] Comment on above: Performed By: #### H CG, LIP, MG, CDP, CMPX #### [place] [address] [employer] Salesperson: Estevan Corcoran MD MCHC (RBC) [Mass/Vol] 33.4 g/dL Normal 31-37 [facility] Comment on above: Performed By: #### H CG, LIP, MG, CDP, CMPX #### [place] [address] [employer] Salesperson: Estevan Corcoran MD MCV (RBC) [Entitic vol] 85.9 fL Normal 80-100 [facility] Comment on above: Performed By: #### H CG, LIP, MG, CDP, CMPX #### [place] [id number] [employer] Salesperson: Estevan Corcoran MD Monocytes (Bld) [#/Vol] 0.40 10*3/uL Normal 0.1-1.2 [facility] Comment on above: Performed By: #### H CG, LIP, MG, CDP, CMPX #### [place] [id number] [employer] Salesperson: Estevan Corcoran MD Monocytes/100 WBC (Bld) 8 % Normal 2-11 [facility] Comment on above: Performed By: #### H CG, LIP, MG, CDP, CMPX #### [place] [address] [employer] Salesperson: Estevan Corcoran MD Neutrophil (Seg) 60 % Normal 36-66 [facility] Comment on above: Performed By: #### H CG, LIP, MG, CDP, CMPX #### [place] [address] [employer] Salesperson: Estevan Corcoran MD Platelet mean volume (Bld) [Entitic vol] 7.6 fL Normal 6.0-12.0 [facility] Comment on above: Performed By: #### H CG, LIP, MG, CDP, CMPX #### [place] [address] [employer] Salesperson: Estevan Corcoran MD Platelets (Bld) [#/Vol] 277 10*3/uL Normal 140-450 [facility] Comment on above: Performed By: #### H CG, LIP, MG, CDP, CMPX #### [place] [address] [employer] Salesperson: Estevan Corcoran MD RBC (Bld) [#/Vol] 5.36 10*6/uL High 4.0-5.2 [facility] Comment on above: Performed By: #### H CG, LIP, MG, CDP, CMPX #### [facility] [address] [place], [place] [id number] [employer] Salesperson: Estevan Corcoran MD WBC (Bld) [#/Vol] 5.6 10*3/uL Normal 3.5-11.0 [facility] Comment on above: Performed By: #### H CG, LIP, MG, CDP, CMPX #### [facility] [id number] [place], [place] [id number] [employer] Salesperson: Estevan Corcoran MD CT ABDOMEN PELVIS W [...] Papito Mishra MD 01/03/22 Final result Normal [facility] CT ABDOMEN PELVIS W IV CONTR [...] L5-S1. Mild levoscoliosis of the lumbar spine. [facility] RIS CONSOL[facility] Papito Mishra MD - 01/03/2022 [...] No clear evidence for small bowel obstruction. [employer] Phone: Radiology Study observation (narrative) [employer] Phone: CT ABDOMEN PELVIS W IV CONTR AST Additional Contrast? NoneOrdered By: Papito Mishra on 01-03-2022 [employer] Phone: Comp Metabolic Pr/rfx MGon 1 ALT [Catalytic activity/Vol] 28 U/L Normal [facility] Comment on above: Performed By: #### H CG, LIP, MG, CDP, CMPX #### [address] [address] [employer] Salesperson: Estevan Corcoran MD (cont.) Normal [facility] Comment on above: Result Comment: Aver age GFR for 30-39 years old: 107 mL/min/1.73sq m Chronic Kidney Disease: <60 mL/min/1.73sq m Kidney failure: <15 mL/min/1.73sq m eGFR calculated using average adult body mass. Additional eGFR calculator available at: http://www.[employer]multiple_crcl_2011.htm Performed By: #### H CG, LIP, MG, CDP, CMPX #### [place] [id number] [employer] Salesperson: Estevan Corcoran MD Albumin [Mass/Vol] 4.3 g/dL Normal 3.5-5.2 [facility] Comment on above: Performed By: #### H CG, LIP, MG, CDP, CMPX #### [place] [address] [employer] Salesperson: Estevan Corcoran MD Albumin/Glob Ratio 1.4 Normal 1.0-2.5 [facility] Comment on above: Performed By: #### H CG, LIP, MG, CDP, CMPX #### [place] [address] [employer] Salesperson: Estevan Corcoran MD Alkaline Phos 105 U/L High 35-104 [facility] Comment on above: Performed By: #### H CG, LIP, MG, CDP, CMPX #### [place] [address] [employer] Salesperson: Estevan Corcoran MD Anion gap [Moles/Vol] 13 mmol/L Normal 9-17 [facility] Comment on above: Performed By: #### H CG, LIP, MG, CDP, CMPX #### [place] [id number] [employer] Salesperson: Estevan Corcoran MD AST [Catalytic activity/Vol] 26 U/L Normal <32 [facility] Comment on above: Performed By: #### H CG, LIP, MG, CDP, CMPX #### [place] [id number] [employer] Salesperson: Estevan Corcoran MD Bilirubin [Mass/Vol] 0.3 mg/dL Normal 0.3-1.2 [facility] Comment on above: Performed By: #### H CG, LIP, MG, CDP, CMPX #### [place] [address] [employer] Salesperson: Estevan Corcoran MD Calcium [Mass/Vol] 8.7 mg/dL Normal 8.6-10.4 [facility] Comment on above: Performed By: #### H CG, LIP, MG, CDP, CMPX #### [place] [address] [employer] Salesperson: Estevan Corcoran MD Chloride [Moles/Vol] 104 mmol/L Normal 98-107 [facility] Comment on above: Performed By: #### H CG, LIP, MG, CDP, CMPX #### [place] [address] [employer] Salesperson: Estevan Corcoran MD CO2 [Moles/Vol] 21 mmol/L Normal 20-31 [facility] Comment on above: Performed By: #### H CG, LIP, MG, CDP, CMPX #### [place] [address] [employer] Salesperson: Estevan Corcoran MD Creatinine [Mass/Vol] 0.60 mg/dL Normal 0.50-0.90 [facility] Comment on above: Performed By: #### H CG, LIP, MG, CDP, CMPX #### [place] [address] [employer] Salesperson: Estevan Corcoran MD GFR, Amer >60 Normal >60 [facility] Comment on above: Performed By: #### H CG, LIP, MG, CDP, CMPX #### [address] [place] [id number] [employer] Salesperson: Estevan Corcoran MD GFR,non Amer >60 Normal >60 [facility] Comment on above: Performed By: #### H CG, LIP, MG, CDP, CMPX #### [place] [address] [employer] Salesperson: Estevan Corcoran MD Glucose [Mass/Vol] 105 mg/dL High 70-99 [facility] Comment on above: Performed By: #### H CG, LIP, MG, CDP, CMPX #### [place] [address] [employer] Salesperson: Estevan Corcoran MD Potassium [Moles/Vol] 3.5 mmol/L Low 3.7-5.3 [facility] Comment on above: Performed By: #### H CG, LIP, MG, CDP, CMPX #### [place] [address] [employer] Salesperson: Estevan Corcoran MD Protein [Mass/Vol] 7.4 g/dL Normal 6.4-8.3 [facility] Comment on above: Performed By: #### H CG, LIP, MG, CDP, CMPX #### [place] [address] [employer] Salesperson: Estevan Corcoran MD Sodium [Moles/Vol] 138 mmol/L Normal 135-144 [facility] Comment on above: Performed By: #### H CG, LIP, MG, CDP, CMPX #### [place] [address] [employer] Salesperson: Estevan Corcoran MD Urea nitrogen [Mass/Vol] 12 mg/dL Normal 6-20 [facility] Comment on above: Performed By: #### H CG, LIP, MG, CDP, CMPX #### [facility] [address] [place] [id number] [employer] Salesperson: Estevan Corcoran MD Comprehensive Metabolic Pane l w/ Reflex to MGon 01-03-2022 Albumin [Mass/Vol] 4.3 g/dL 3.5 - 5.2 g/dL [facility] Albumin/Globulin [Mass ratio] 1.4 {ratio} 1 - 2.5 [facility] ALP (Bld) [Catalytic activity/Vol] 105 U/L High 35 - 104 U/L [facility] ALT [Catalytic activity/Vol] 28 U/L 5 - 33 U/L [facility] Anion gap [Moles/Vol] 13 mmol/L 9 - 17 mmol/L [facility] AST [Catalytic activity/Vol] 26 U/L NINF - 32 U/L [facility] Bilirubin [Mass/Vol] 0.3 mg/dL 0.3 - 1 .2 mg/dL [facility] Calcium [Mass/Vol] 8.7 mg/dL 8.6 - 10. 4 mg/dL [facility] Chloride [Moles/Vol] 104 mmol/L 98 - 10 7 mmol/L [facility] CO2 [Moles/Vol] 21 mmol/L 20 - 31 mmol/L [facility] Creatinine [Mass/Vol] 0.6 mg/dL 0.5 - 0.9 mg/dL [facility] GFR >60 60 - PI NF mL/min [facility] GFR Non- >60 60 - PINF mL/min [facility] GFR/1.73 sq M.predicted MDRD (S/P/Bld) [Vol rate/Area] [facility] Comment on above: Average GFR for 30-3 9 years old: 107 mL/min/1.73sq m Chronic Kidney Disease: <60 mL/min/1.73sq m Kidney failure: <15 mL/min/1.73sq m eGFR calculated using average adult body mass. Additional eGFR calculator available at: http://www.globalrph[employer]multiple_crcl_2012.htm Glucose [Mass/Vol] 105 mg/dL High 70 - 99 mg/dL [facility] Interpretation and review of laboratory results Abnormal [facility] Potassium [Moles/Vol] 3.5 mmol/L Low 3.7 - 5.3 mmol/L [facility] Protein [Mass/Vol] 7.4 g/dL 6.4 - 8.3 g/dL [facility] Sodium [Moles/Vol] 138 mmol/L 135 - 144 mmol/L [facility] Urea nitrogen (BldV) [Mass/Vol] 12 mg/dL 6 - 20 mg/dL [facility] HCG Qualitative, Serumon hCG Qual Negative NEGATIVE [facility] Comment on above: Specimens with hCG l evels near the threshold of the test (25 mIU/mL) may give a negative or indeterminate result. In such cases, another test should be performed with a new specimen in 48-72 hours. If early is suspected clinically in this setting, correlation with quantitative serum b-hCG level is suggested. [employer] has confirmed the use of plasma for this test. This has not been cleared or approved by the U.S. Food and Drug Administration. The FDA has determined that such clearance is not necessary. [facility] HCG Screen, Bloodon 01-04-20 HCG Screen, Blood Negative Normal NEG [facility] Comment on above: Result Comment: Spec imens with hCG levels near the threshold of the test (25 mIU/mL) may give a negative or indeterminate result. In such cases, another test should be performed with a new specimen in 48-72 hours. If early is suspected clinically in this setting, correlation with quantitative serum b-hCG level is suggested. [employer] has confirmed the use of plasma for this test. This has not been cleared or approved by the U.S. Food and Drug Administration. The FDA has determined that such clearance is not necessary. Performed By: #### H CG, LIP, MG, CDP, CMPX #### [facility] [address] [place] [address] [employer] Salesperson: Estevan Corcoran MD Lipaseon 01-03-2022 Lipase [Catalytic activity/Vol] 20 U/L Normal 13-60 [facility] Comment on above: Performed By: #### H CG, LIP, MG, CDP, CMPX #### [address] [id number] [employer] Salesperson: Estevan Corcoran MD Lipase [Catalytic activity/Vol] 20 U/L 13 - 60 U/L [facility] Magnesiumon 01-03-2022 Magnesium [Mass/Vol] 2.1 mg/dL Normal 1.6-2.6 [facility] Comment on above: Performed By: #### H CG, LIP, MG, CDP, CMPX #### [address] [address] [employer] Salesperson: Estevan Corcoran MD Magnesium [Mass/Vol] 2.1 mg/dL 1.6 - 2 .6 mg/dL [facility] Microscopic Urinalysison Bacteria, UA MANY Abnormal None [facility] Epithelial Cells UA TOO NUMEROUS TO COUNT [facility] Interpretation and review of laboratory results Abnormal [facility] Other Observations UA Utilizing a urinal ysis as the only screening method to exclude a potential uropathogen can be unreliable in many patient populations. Rapid screening tests are less sensitive than culture and if UTI is a clinical possibility, culture should be considered despite a negative urinalysis. Abnormal NOT REQ. [facility] RBC, UA 2 TO 5 [facility] WBC, UA 2 TO 5 [facility] UA w/Reflex Cultureon 2021 Bilirubin, SemiQt,Ur Negative Normal NEG [facility] Comment on above: Performed By: #### U AX, UMICAO ####[address] [address] Lab Director: Estevan Corcoran MD Blood, Urine LARGE Abnormal NEG [facility] Comment on above: Performed By: #### U AX, UMICAO ####[address] [address] Lab Director: Estevan Corcoran MD Clarity (U) Cloudy Abnormal CLEAR [facility] Comment on above: Result Comment: FOUL ODOR Performed By: #### U AX, UMICAO ####[address] [address] Lab Director: Estevan Corcoran MD Color (U) Yellow Normal YEL [facility] Comment on above: Performed By: #### U AX, UMICAO ####[address] [address] Lab Director: Estevan Corcoran MD Glucose Ql (U) Negative Normal NEG [facility] Comment on above: Performed By: #### U AX, UMICAO ####[address] [address] Lab Director: Estevan Corcoran MD Ketones Ql (U) Negative Normal NEG [facility] Comment on above: Performed By: #### U AX, UMICAO ####[address] [address] Lab Director: Estevan Corcoran MD Leukocyte esterase Test strip Ql (U) Negative Normal NEG [facility] Comment on above: Performed By: #### U AX, UMICAO ####[address] [address] Lab Director: Estevan Corcoran MD Nitrite,Ur Negative Normal NEG [facility] Comment on above: Performed By: #### U AX, UMICAO ####[address] [address] Lab Director: Estevan Corcoran MD PH,Ur 6.0 Normal 5.0-8.0 [facility] Comment on above: Performed By: #### U AX, [place] ####[place] [address] Lab Director: Estevan Corcoran MD Protein Ql (U) Negative Normal NEG [facility] Comment on above: Performed By: #### U AX, [place]ICAO ####[place] [address] Lab Director: Estevan Corcoran MD Spec. Alleman,Ur 1.108 High 1.005-1.03 0 [facility] Comment on above: Result Comment: POST IV CONTRAST Performed By: #### U AX, [place]ICAO ####[place] [address] Lab Director: Estevan Corcoran MD Urobilinogen,Ur Normal Normal NORM [facility] Comment on above: Performed By: #### U AX, UMICAO ####[place] [address] Lab Director: Estevan Corcoran MD Urinalysis with Reflex to Cu ltureon 01-03-2022 Bilirubin Urine Negative NEGATIVE [facility] [employer] Color, UA Yellow Yellow [facility] Glucose, Ur Negative NEGATIVE [facility] Interpretation and review of laboratory results Abnormal [facility] Ketones Ql (U) Negative NEGATIVE [facility] Leukocyte esterase Test strip Ql (U) Negative NEGATIVE [facility] Nitrite, Urine Negative NEGATIVE [facility] pH, UA 6.0 5 - 8 [facility] Protein, UA Negative NEGATIVE [facility] Specific Alleman, UA 1.108 High 1.005 - 1.03 [facility] Comment on above: POST IV CONTRAST Turbidity UA Cloudy Abnormal Clear [facility] Comment on above: FOUL ODOR Urine Hgb LARGE Abnormal NEGATIVE [facility] Urobilinogen, Urine Normal Normal [facility] Urinalysis,Microon 2 Bacteria MANY Abnormal NONE [facility] Comment on above: Performed By: #### U AX, UMICAO ####[address] [address] Lab Director: Estevan Corcoran MD Epithelial cells LM Ql (Urine sed) TOO NUMEROUS TO COUNT Normal 0-5 [facility] Comment on above: Performed By: #### U AX, [place]ICAO ####[place] [address] Lab Director: Estevan Corcoran MD Other Observations Utilizing a urinalys is as the only screening method to exclude a potential Abnormal NREQ [facility] Comment on above: Result Comment: urop athogen can be unreliable in many patient populations. Rapid screening tests are less sensitive than culture and if UTI is a clinical possibility, culture should be considered despite a negative urinalysis. Performed By: #### U AX, [place]ICAO ####[place] [address] Lab Director: Estevan Corcoran MD Urine RBC's 2 TO 5 Normal 0-2 [facility] Comment on above: Performed By: #### U AX UMICAO ####[address] [address] lab Director: Estevan Corcoran MD Urine WBC's 2 TO 5 Normal 0-5 [facility] Comment on above: Performed By: #### U AX UMICAO ####[facility] [place] [address] lab Director: Estevan Corcoran MD CT LUMBAR [...] leg pain. Follow-up MRI may be helpful. [facility] EXAMINATION: CT OF THE LUMBAR [...] SOFT TISSUES/RETROPERITONEUM: No paraspinal mass is seen. [facility] Boyd Beatty MD - 08/19/2021 [...] leg pain. Follow-up MRI may be helpful. [employer] Phone: Radiology Study observation (narrative) [facility] Phone: CT LUMBAR SPINE WO CONTRASTO rdered By: Boyd Beatty on 08-19-2021 [employer] Phone: Vital Signs Date Time Vital Sign Value Performing Clinician Elena melton 04-11-2024 09:59-0500 Body height 167.64 cm [facility] 04-11-2024 09:59-0500 Body mass index (BMI) [Ratio] 31.8 kg/m2 [facility] 04-11-2024 09:59-0500 Body weight 89.35 kg [facility] 04-11-2024 09:59-0500 Diastolic blood pressure 94 mm[Hg] [facility] 04-11-2024 09:59-0500 Heart rate 86 /min [facility] 04-11-2024 09:59-0500 Systolic blood pressure 138 mm[Hg] [facility] 02-26-2024 09:54-0500 Body mass index (BMI) [Ratio] 33.12 kg/m2 Sanjeev Jessica DO Work Phone: [facility] 02-26-2024 09:54-0500 Body weight 90.27 kg Sanjeev Jessica DO Work Phone: [facility] 02-26-2024 09:54-0500 Diastolic blood pressure 80 mm[Hg] Sanjeev Jessica DO Work Phone: [facility] 02-26-2024 09:54-0500 Systolic blood pressure 130 mm[Hg] Sanjeev Jessica DO Work Phone: [facility] 01-18-2024 14:03-0400 Body height 165.[address] [facility] 01-18-2024 14:03-0400 Body mass index (BMI) [Ratio] 31.45 kg/m2 [facility] 01-18-2024 14:03-0400 Body weight 85.[address] [facility] 01-03-2024 10:48-0400 Body mass index (BMI) [Ratio] 33.75 kg/m2 Sanjeev Jessica DO Work Phone: [facility] 01-03-2024 10:48-0400 Body weight 91.99 kg Sanjeev Jessica DO Work Phone: [facility] 01-03-2024 10:48-0400 Diastolic blood pressure 74 mm[Hg] Sanjeev Jessica DO Work Phone: [facility] 01-03-2024 10:48-0400 Systolic blood pressure 116 mm[Hg] Sanjeev Jessica DO Work Phone: [facility] 12-06-2023 11:46-0400 Body mass index (BMI) [Ratio] 32.78 kg/m2 Sanjeev Jessica DO Work Phone: [facility] 12-06-2023 11:46-0400 Body weight 89.36 kg Sanjeev Jessica DO Work Phone: [facility] 12-06-2023 11:46-0400 Diastolic blood pressure 72 mm[Hg] Sanjeev Jessica DO Work Phone: [facility] 12-06-2023 11:46-0400 Systolic blood pressure 124 mm[Hg] Sanjeev Jessica DO Work Phone: [facility] 11-29-2023 13:37-0400 Body mass index (BMI) [Ratio] 34.28 kg/m2 Sanjeev Jessica DO Work Phone: [facility] 11-29-2023 13:37-0400 Body weight 93.44 kg Sanjeev Jessica DO Work Phone: [facility] 11-29-2023 13:37-0400 Diastolic blood pressure 74 mm[Hg] Sanjeev Jessica DO Work Phone: [facility] 11-29-2023 13:37-0400 Systolic blood pressure 128 mm[Hg] Sanjeev Jessica DO Work Phone: [facility] 06-12-2023 10:05-0400 Body height 165.1 cm Rohit Metzger MD Work Phone: [facility] 06-12-2023 10:05-0400 Body mass index (BMI) [Ratio] 38.94 kg/m2 Rohit Metzger MD Work Phone: [facility] 06-12-2023 10:05-0400 Body weight 106.14 kg Rohit Metzger MD Work Phone: [facility] 05-16-2023 13:48-0500 Body height 165.1 cm Rohit Metzger MD Work Phone: [employer] 05-16-2023 13:48-0500 Body mass index (BMI) [Ratio] 38.94 kg/m2 Rohit Metzger MD Work Phone: [employer] 05-16-2023 13:48-0500 Body weight 106.14 kg Rohit Metzger MD Work Phone: [employer] 01-02-2023 10:00-0400 Body height 162.56 cm Johnathon Winter Other [employer] [facility] 01-02-2023 10:00-0400 Body mass index (BMI) [Ratio] 42.91 kg/m2 Johnathon Winter Other [facility] 01-02-2023 10:00-0400 Body weight 113.4 kg Johnathon Winter Other [facility] 01-02-2023 10:00-0400 Diastolic blood pressure 82 mm[Hg] Johnathon Winter Other [facility] 01-02-2023 10:00-0400 Systolic blood pressure 126 mm[Hg] Johnathon Winter Other [facility] Other 2022 11:00-0400 Body height 162.56 cm Johnathon Winter Other [facility] Other 2022 11:00-0400 Body mass index (BMI) [Ratio] 44.56 kg/m2 Johnathon Winter Other [facility] Other 2022 11:00-0400 Body weight 117.75 kg Johnathon Winter Other [facility] Other 2022 11:00-0400 Diastolic blood pressure 101 mm[Hg] Johnathon Winter Other [facility] Other 2022 11:00-0400 SaO2% (BldA) [Mass fraction] 100 % Johnathon Winter Other [facility] Other 2022 11:00-0400 Systolic blood pressure 138 mm[Hg] Johnathon Winter Other [facility] 10-11-2022 18:45-0400 Body height 165.1 cm Roxie Garcia MD Work Phone: [employer] 10-11-2022 18:45-0400 Body mass index (BMI) [Ratio] 43.93 kg/m2 Roxie Garcia MD Work Phone: [employer] 10-11-2022 18:45-0400 Body temperature 99 [degF] Roxie Garcia MD Work Phone: [employer] 10-11-2022 18:45-0400 Body weight 119.75 kg Roxie Garcia MD Work Phone: [employer] 10-11-2022 18:45-0400 Diastolic blood pressure 108 mm[Hg] Roxie Garcia MD Work Phone: [employer] 10-11-2022 18:45-0400 Heart rate 87 /min Roxie Garcia MD Work Phone: [employer] 10-11-2022 18:45-0400 Respiratory rate 16 /min Roxie Garcia MD Work Phone: [employer] 10-11-2022 18:45-0400 SaO2% (BldA) [Mass fraction] 98 % Roxie Garcia MD Work Phone: [employer] 10-11-2022 18:45-0400 Systolic blood pressure 160 mm[Hg] Roxie Garcia MD Work Phone: [email or web address] [employer] 01-03-2022 13:54-0400 Diastolic blood pressure 95 mm[Hg] Teo Morean DO [email or web address] [employer] 01-03-2022 13:54-0400 Heart rate 61 /min Teo Froylanfman DO [email or web address] [employer] 01-03-2022 13:54-0400 SaO2% (BldA) [Mass fraction] 100 % Teo Helfman DO [email or web address] [employer] 01-03-2022 13:54-0400 Systolic blood pressure 142 mm[Hg] Teo Helfman DO [email or web address] [employer] 01-03-2022 11:46-0400 Body height 165.1 cm Teo Froylanfman DO [email or web address] [employer] 01-03-2022 11:46-0400 Body mass index (BMI) [Ratio] 44.1 kg/m2 Teo Froylanfman DO [email or web address] [employer] 01-03-2022 11:46-0400 Body temperature 97.7 [degF] Teo Froylanfman DO [email or web address] 01-03-2022 11:46-0400 Body weight 120.2 kg Teo Froylanfman DO [email or web address] 01-03-2022 11:46-0400 Respiratory rate 16 /min Teo Morean DO [email or web address] [employer] 08-19-2021 18:03-0400 Diastolic blood pressure 98 mm[Hg] Radha Sanders MD Work Phone: [facility] [employer] [facility] 08-19-2021 18:03-0400 Heart rate 92 /min Radha Sanders MD Work Phone[email or web address] 08-19-2021 18:03-0400 Respiratory rate 16 /min Radha Sanders MD Work Phone: [facility] 08-19-2021 18:03-0400 SaO2% (BldA) [Mass fraction] 96 % Radha Sanders MD Work Phone[email or web address] 08-19-2021 18:03-0400 Systolic blood pressure 145 mm[Hg] Radha Sanders MD Work Phone: [employer] 08-19-2021 16:28-0400 Body height 165.1 cm Radha Sanders MD Work Phone: [employer] 08-19-2021 16:28-0400 Body mass index (BMI) [Ratio] 45.76 kg/m2 Radha Sanders MD Work Phone: [employer] 08-19-2021 16:28-0400 Body temperature 98.6 [degF] Radha Sanders MD Work Phone: [employer] 08-19-2021 16:28-0400 Body weight 124.74 kg Radha Sanders MD Work Phone: [employer] Encounters Encounter Date Encounter Type Care Provider Facility Start: 04-11-2024 Patient encounter status [facility] Start: 04-11-2024 End: 04-11-2024 ambulatory [facility] Work Phone: Start: 04-11-2024 End: 04-11-2024 Encounter for general adult medical examination without abnormal findings [facility] Start: 04-11-2024 End: 04-11-2024 Patient encounter procedure [facility] Physician [facility] Work Phone: Start: 04-08-2024 End: 04-08-2024 ambulatory [facility] Start: 04-01-2024 End: 04-01-2024 Clinisync Result Encounter Sanjeev Jessica DO Work Phone: [facility] External Department Unsolicited Start: 04-01-2024 End: 04-01-2024 Clinisync Result Encounter Sanjeev Jessica DO Work Phone: [facility] External [facility] Unsolicited Start: 04-01-2024 Non-patient / Non-visit [facility] Physician [facility] Work Phone: Start: 03-22-2024 End: 03-22-2024 Documentation procedure Caitlyn Carter [facility] Start: 02-26-2024 End: [...] 02-26-2024 ambulatory SANJEEV JESSICA Not Available Start: 01-30-2024 Non-patient / Non-visit [facility] Physician [facility] Work Phone: Start: 01-26-2024 End: 01-26-2024 Orders Only Alfonso Liang MD Work Phone: [facility] Sign In Start: 01-26-2024 End: 01-26-2024 Evaluation and management of inpatient [facility] Start: 01-25-2024 End: 01-26-2024 ambulatory [facility] Start: 01-19-2024 Non-patient / Non-visit [facility] Work Phone: Start: 01-18-2024 End: 01-18-2024 [facility] Start: 01-18-2024 End: 01-18-2024 Evaluation and management of inpatient JOHNATHON WINTER [facility] Start: 01-14-2024 Non-patient / Non-visit [facility] Work Phone: Start: 01-14-2024 End: 01-14-2024 Emergency department [facility] Start: 01-03-2024 End: 01-03-2024 Bamboo flowsheet [...] Not Available Start: 01-03-2024 End: 01-03-2024 ambulatory [facility] Start: 12-28-2023 End: 12-29-2023 Clinisync Result Encounter [...] Departed Referred DO Sanjeev Jessica Work Phone: [facility] [place] Work Phone: Start: 12-06-2023 End: 12-06-2023 Patient encounter procedure Sanjeev Jessica DO Work Phone: [facility] Comment on above: Pre-op examination; Menorrhagia with regular cycle; Abnormal uterine bleeding (AUB); Pelvic pain; Hormone disorder Start: 12-06-2023 End: 12-06-2023 Preprocedural examination done Sanjeev Jessica DO Work Phone: [facility] Start: 12-06-2023 End: 12-06-2023 ambulatory Sanjeev Jessica [facility] Work Phone: Start: 11-29-2023 Non-patient / Non-visit DO Cor ey Jessica Work Phone: [facility] Work Phone: Start: [...] Not Available Start: 11-22-2023 End: 11-22-2023 ambulatory [facility] Start: 11-20-2023 End: 11-20-2023 ambulatory Christiano Rivera MD Facility:[facility] Start: 11-13-2023 End: 11-13-2023 ambulatory Christiano Rivera MD Facility:[facility] Start: 10-25-2023 Non-patient / Non-visit DO Cor ey Jessica Work Phone: [facility] Work Phone: Start: 08-23-2023 End: 08-23-2023 ambulatory KELI Resendez Facility:[facility] Start: 08-02-2023 End: 08-02-2023 ambulatory ROBERT URRUTIA Not Available Start: 07-31-2023 End: 07-31-2023 ambulatory Bhavin Montgomery MD Facility:[facility] Start: 07-19-2023 End: 07-19-2023 ambulatory SANJEEV LOPEZ Not Available Start: 07-17-2023 End: 07-17-2023 ambulatory Bhavin Montgomery MD Facility:[facility] Start: 06-26-2023 End: 06-26-2023 ambulatory Bhavin Montgomery MD Facility:[facility] Start: 06-15-2023 End: 06-15-2023 ambulatory SANJEEV LOPEZ Not Available Start: 06-12-2023 End: 06-12-2023 ambulatory ROHIT SMITH [facility] Comment on above: Lumbar radiculopathy , chronic (Primary Dx); Herniated lumbar intervertebral disc Start: 06-12-2023 End: 06-12-2023 Office outpatient visit 10 minutes Rohit Smith MD Work Phone: [facility] Comment on above: 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) Start: 06-06-2023 ambulatory RENY NO [facility] Start: 05-24-2023 Orders Only Reny barlow [employer]LAYUP WORKER Work Phone: [facility] Comment on above: Herniated lumbar int ervertebral disc (Primary Dx); Lumbar radiculopathy, chronic Start: 05-23-2023 End: 05-23-2023 ambulatory Tee Peterson [facility] Work Phone: Start: 05-23-2023 End: 05-23-2023 Departed Referred MD Tee Peterson Work Phone: [facility] Start: 05-19-2023 End: 05-19-2023 ambulatory [facility] Start: 05-16-2023 End: 05-16-2023 ambulatory ROHIT SMITH [facility] Start: 05-16-2023 End: 05-16-2023 Office outpatient new 30 minutes Rohit Smith MD Work Phone: [facility] Comment on above: 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); Finger injury, right, initial encounter Start: 05-15-2023 Orders Only Reny barlow [employer]LAYUP WORKER Work Phone: [facility] Comment on above: Herniated lumbar int ervertebral disc (Primary Dx) Start: 05-10-2023 End: 05-10-2023 ambulatory Johnathon Winter Other [facility] Other Start: 05-10-2023 Encounter by kriss Winter [facility] Start: 05-10-2023 Non-patient / Non-visit MD Jones Work Phone: [facility] [employer] Work Phone: Start: 05-04-2023 End: 05-04-2023 Office outpatient visit 10 minutes Oswaldo Dee NP Work Phone: [facility] Comment on above: 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); Pain in finger of right hand Start: 05-04-2023 End: 05-04-2023 ambulatory OSWALDO DEE Not Available Start: 05-01-2023 End: 05-01-2023 ambulatory SANJEEV LOPEZ Not Available Start: 04-19-2023 End: 04-19-2023 ambulatory Scottie Lyn Other [facility] Other Start: 04-19-2023 Telephone encounter Scottie Lyn [facility] Start: 04-14-2023 End: 04-14-2023 Orders Only Serina Rodriguez RMA [facility] Comment on above: Back pain, unspecifi ed back location, unspecified back pain laterality, unspecified chronicity (Primary Dx) Start: 04-12-2023 End: 04-12-2023 ambulatory Johnathon Winter Other [facility] Other Start: 04-12-2023 Telephone encounter Johnathon Winter [facility] Start: 04-11-2023 End: 04-11-2023 ambulatory Johnathon Winter Other [facility] Other Start: 04-11-2023 Telephone encounter Johnathon Winter [facility] Start: 04-10-2023 End: 04-10-2023 ambulatory Johnathon Winter Other [facility] Other Start: 04-10-2023 Encounter by kriss Winter [facility] Start: 03-16-2023 End: 03-16-2023 ambulatory OSWALDO DEE Not Available Start: 03-09-2023 End: 03-09-2023 ambulatory Sanchez DICKEY Facility:[facility] Start: 01-30-2023 End: 01-30-2023 ambulatory Johnathon Winter Other [facility] Other Start: 01-30-2023 Telephone encounter Johnathon Winter [facility] Start: 01-02-2023 End: 01-02-2023 ambulatory Johnathon Winter Other [facility] Other Start: 01-02-2023 Office outpatient vi sit 15 minutes Johnathon Winter [facility] Start: 12-09-2022 End: 12-09-2022 ambulatory Johnathon Winter Other [facility] Other Start: 12-09-2022 Telephone encounter Johnathon Winter [facility] Start: 12-08-2022 End: 12-08-2022 ambulatory Johnathon Winter Other [facility] Other Start: 12-08-2022 Telephone encounter Johnathon Winter [facility] Start: 2022 End: 2022 ambulatory Johnathon Winter Other [facility] Other Start: 2022 Office outpatient ne w 30 minutes Johnathon Winter [facility] Start: 10-11-2022 End: 10-11-2022 Emergency department patient visit JOHNATHON WINTER [facility] Start: 10-11-2022 End: 10-11-2022 Emergency department patient visit Roxie Garcia MD Work Phone: [facility] Comment on above: Sprain of right ankl e, unspecified ligament, initial encounter (Primary Dx) Start: 07-11-2022 End: 07-11-[address] SANJEEV LOPEZ . Facility: Start: 04-29-2022 End: 04-30-[address] SANJEEV LOPEZ . Facility: Start: 02-16-2022 End: 02-16-2022 Emergency department patient visit JOHNATHON WINTER [facility] Start: 01-03-2022 End: 01-03-2022 Emergency department patient visit JOHNATHON WINTER [facility] Start: 01-03-2022 End: 01-03-2022 Emergency department patient visit Teo Enriquez Froylanprema DO [facility] Comment on above: Gastroenteritis (Neetu emil Dx) Start: 08-19-2021 End: 08-19-2021 Emergency department patient visit Radha Sanders MD Work Phone: [facility] Comment on above: Herniated lumbar int ervertebral disc (Primary Dx) Procedures Date Procedure Procedure Detail Performing Clinician Start: 04-01-2024 MLR HEMOGLOBIN A1C Core y Jessica DO Work Phone: Start: 12-28-2023 Cyanocobalamin vitamin b-12 Sanjeev Jessica [...] ankle complete minimum 3 views Bailee Lew [employer] - LAYUP WORKER Work Phone: Start: 01-03-2022 Urinalysis microscopic only Zachariah Cristian [employer] - [employer]OUNDATION D[employer] Work Phone: Start: 01-03-2022 Urnls dip stick/tabl et rgnt auto w/o microscopy Zachariah Critsian [employer] - FOUNDATION DIGGER Work Phone: Start: 01-03-2022 Ct abdomen & pelvis w/contrast material Zachariah Foster [employer] - FOUNDATION D[employer] Work Phone: Start: 01-03-2022 Assay of lipase Zachariah Cristian [employer] - FOUNDATION DIGGER Work Phone: Start: 12-01-2021 Adult depression scr eening corinna Smalls Rodriguez RMA Start: 08-19-2021 Ct lumbar spine w/o contrast material Radha Sanders MD Work Phone: Plan of Treatment Date Care Activity Detail Author Start: 01-25-2025 Adult BMI Screening Adult BMI Screening [facility] Start: 01-25-2025 Tobacco Screening Tobacco Screening [facility] Start: 01-17-2025 Adult BMI Screening Adult BMI Screening [facility] Start: 01-02-2025 Tobacco Screening Tobacco Screening [facility] Start: 07-22-2024 End: 07-22-2024 Patient encounter procedure 07/22/2024 3:00 PM EDT Office Visit [facility] [address] [place] [address] Sanjeev Lopez, DO [address] [place] [address] [facility] Start: 06-11-2024 Adult BMI Screening Adult BMI Screening [facility] Start: 06-11-2024 Tobacco Screening Tobacco Screening [facility] Start: 05-16-2024 Adult BMI Screening Adult BMI Screening [facility] Start: 05-16-2024 Tobacco Screening Tobacco Screening [facility] Start: 05-08-2024 Adult BMI Screening Adult BMI Screening [facility] Start: 05-08-2024 Tobacco Screening Tobacco Screening [facility] Start: 04-14-2024 Adult BMI Screening Adult BMI Screening [facility] Start: 04-14-2024 Tobacco Screening Tobacco Screening [facility] Start: 02-26-2024 End: 04-27-2025 MG Breast - bilateral Diagnostic Bilateral diagnostic mammogram Imaging Routine Breast pain Expected: 02/26/2024 (Approximate), Expires: 04/27/2025 [facility] Work Phone: Comment on above: Expected: 02/26/2024 (Approximate), Expi res: 04/27/2025 Start: 02-26-2024 End: 02-26-2024 Patient encounter procedure 02/26/2024 10:00 AM EST Office Visit [facility] [address] [place] [phone] Sanjeev Lopez, DO [address] [place] [address] Arrived [facility] Comment on above: Arrived Start: 01-25-2024 End: 01-25-2024 Admission to same day surgery center 01/25/2024 10:00 AM EDT - 01/25/2024 1:59 PM EDT Surgery [facility] [address] [place] [address] [place] [address] PANNICULECTOMY [facility] Comment on above: PANNICULECTOMY Start: 01-25-2024 End: 01-25-2024 PANNICULECTOMY PANNICULECTOMY Panniculitis affecting regions of neck and back, site unspecified 01/25/2024 10:[address] [facility] Start: 01-25-2024 Subsequent hospital visit by physician 01/25/2024 10:00 AM EDT Hospital Encounter [facility] [address] [place] [address], [address] [place] [address] [facility] Start: 01-03-2024 End: 01-03-2024 Patient encounter procedure [facility] Comment on above: Arrived Start: 12-22-2023 End: 12-22-2023 Patient encounter procedure 12/22/2023 10:00 AM EDT Procedure Visit [facility] Sanjeev Lopez, DO [address] [place] [address] [place] [address] [facility] Start: 12-06-2023 End: 12-05-2024 [...] 12-05-2024 Thyrotropin [Units/volume] in Serum or Plasma [facility] Comment on above: Ordered: 12/06/2023 Expected: 12/06/2023 (Approximate), Expires: 12/05/2024 Start: 12-06-2023 End: 12-06-2023 Patient encounter procedure 12/06/2023 11:30 AM EDT Procedure Visit [facility] [address] [place] [address] Sanjeev Lopez, DO [address] [place] [address] [facility] Start: 12-03-2023 Influenza vaccination Influenza Vaccine [facility] Start: 11-29-2023 End: 11-28-2024 DHEA-sulfate DHEA-sulfate Lab Routine Decreased libido Expected: 11/29/2023 (Approximate), Expires: 11/28/2024 [facility] Comment on above: Expected: 11/29/2023 (Approximate), Expi res: 11/28/2024 Start: 11-29-2023 End: 11-29-2023 Patient encounter procedure 11/29/2023 1:50 PM EDT Office Visit [facility] [address] [place] [address] Sanjeev Lopez, DO [address] [place] [address] Arrived [facility] Comment on above: Arrived Start: 07-19-2023 End: 07-19-2023 Patient encounter procedure 07/19/2023 1:45 PM EDT Office Visit [facility] [address] [facility] [address] [place] [address] Vishal Martin DO [address] [place] [address] [facility] Start: 07-17-2023 End: 07-17-2023 Patient encounter procedure 07/17/2023 10:00 AM EDT Office Visit [facility] [address] [place] [address] Sanjeev Lopez, [address] [place] [address] [facility] Start: 06-12-2023 End: 06-12-2023 Patient encounter procedure 06/12/2023 10:05 AM EDT Office Visit [facility] [place] [facility] [address] [facility] [address] [place] [phone] Rohit Smith MD [address] [place] [address] [facility] Start: 05-19-2023 End: 05-19-2023 Patient encounter procedure 05/19/2023 10:15 AM EST Appointment [facility] [address] [place] [phone] [facility] Start: 05-16-2023 End: 05-16-2023 Patient encounter procedure 05/16/2023 1:45 PM EST Office Visit [facility] [address] [facility] [address] [place] [phone] Rohit Smith MD [address] [place] [address] [facility] Start: 05-08-2023 End: 05-08-2023 Patient encounter procedure 05/08/2023 1:30 PM EST Office Visit [facility] [address] [facility] [place] [address] Reny No, STUFFED CASING TIER-LAYUP WORKER [address] [place] [address] [facility] Start: 04-14-2023 End: 04-14-2024 XR Lumbar spine Views W flexion and W extension X-ray spine lumbar ap, lateral, flexion and extension only Imaging Routine Back pain, unspecified back location, unspecified back pain laterality, unspecified chronicity Expected: 04/14/2023, Expires: 04/14/2024 [facility] [employer] Work Phone: Comment on above: Expected: 04/14/2023, Expires: Start: 12-02-2022 Influenza vaccination Influenza Vaccine [facility] Start: 12-01-2022 Depression Screening Depression Screening [facility] Start: 11-01-2022 Influenza vaccination Flu vaccine (#1) [facility] Start: 09-03-2022 Adult BMI Follow Up Plan Adult BMI Follow Up Plan [facility] Start: 12-02-2021 Influenza vaccination Flu vaccine (Season Ended) [facility] Start: 11-01-2021 Influenza vaccination Flu vaccine (#1) [facility] Start: 2017 Diabetes screen Diabetes screen [facility] Start: 2012 Screening for malignant neoplasm of cervix [facility] Start: 12-01-2003 Screening for malignant neoplasm of cervix Pap smear [facility] Start: 2001 DTaP,Tdap and Td Vaccines (1 - Tdap) DTaP,Tdap and Td Vaccines (1 - Tdap) [facility] Start: 2001 DTaP/Tdap/Td vaccine (1 - Tdap) DTaP/Tdap/Td vaccine (1 - Tdap) [facility] Start: 2000 Adult BMI Follow Up Plan Adult BMI Follow Up Plan [facility] Start: 2000 Hepatitis C screening Hepatitis C screen [facility] Start: 1994 Depression Screen Depression Screen [facility] Start: 12-01-1987 COVID-19 Vaccine (1) COVID-19 Vaccine (1) [facility] Start: 12-01-1983 Varicella vaccine (1 of 2 - 2-dose childhood series) Varicella vaccine (1 of 2 - 2-dose childhood series) [facility] Start: 06-01-1983 COVID-19 Vaccine (#1) COVID-19 Vaccine (#1) [facility] Endometrial biopsy Endometrial b iopsy Procedures Routine Menorrhagia with regular cycle Abnormal uterine bleeding (AUB) Pelvic pain Ordered: 12/06/2023 [facility] Work Phone: Comment on above: Ordered: 12/06/2023 Estradiol Estradiol Lab Ro utine Hormone disorder Ordered: 12/06/2023 [facility] Comment on above: Ordered: 12/06/2023 Estrone Estrone Lab Rout ine Hormone disorder Ordered: 12/06/2023 [facility] Comment on above: Ordered: 12/06/2023 Ferritin [Mass/volum e] in Serum or Plasma Ferritin Lab Routine Hormone disorder Ordered: 12/06/2023 [facility] Comment on above: Ordered: 12/06/2023 Hemoglobin A1c/Hemoglobin.total in Blood Hemoglobin A1c Lab Routine Hormone disorder Ordered: 12/06/2023 [facility] Comment on above: Ordered: 12/06/2023 Progesterone Progesterone Lab Routine Hormone disorder Ordered: 12/06/2023 [facility] Comment on above: Ordered: 12/06/2023 Sex hormone binding globulin Sex hormone binding globulin Lab Routine Decreased libido Ordered: 11/29/2023 [facility] Comment on above: Ordered: 11/29/2023 T3, reverse T3, reverse Lab Routine Hormone disorder Ordered: 12/06/2023 [facility] Comment on above: Ordered: 12/06/2023 TESTOSTERONE, FREE TESTOSTERONE, FREE Lab Routine Decreased libido Ordered: 11/29/2023 [facility] Work Phone: Comment on above: Ordered: 11/29/2023 Testosterone, free, total Testos terone, free, total Lab Routine Decreased libido Ordered: 11/29/2023 [facility] Comment on above: Ordered: 11/29/2023 Testosterone, free, total Testos terone, free, total Lab Routine Hormone disorder Ordered: 12/06/2023 [facility] Comment on above: Ordered: 12/06/2023 Thyroid peroxidase antibody Thyroid peroxidase antibody Lab Routine Hormone disorder Ordered: 12/06/2023 [facility] Comment on above: Ordered: 12/06/2023 Thyroxine (T4) free [Mass/volume] in Serum or Plasma T4, free Lab Routine Hormone disorder Ordered: 12/06/2023 [facility] Comment on above: Ordered: 12/06/2023 Triiodothyronine (T3 ) Free [Mass/volume] in Serum or Plasma T3, free Lab Routine Hormone disorder Ordered: 12/06/2023 [facility] Comment on above: Ordered: 12/06/2023 Vitamin D 1,25 dihydroxy Vitamin D 1,25 dihydroxy Lab Routine Hormone disorder Ordered: 12/06/2023 [facility] Comment on above: Ordered: 12/06/2023 [facility] Payers Date Payer Category Payer Unknown [id number] 2023 Self-pay 2022 [facility] BCBS [id number] 2022 [facility] Managed Care - PPO [id number] 2022 Unknown [id number]. 1.13.424. 2.7.3.973738.315 2022 Unknown [id number] 2020 Unknown [id number] 1.2.840.094666.1.13.239. 2.7.3.844876.315 1982 Unknown [id number] 2.16.840.1.211792.3.579. 2.593 1982 Unknown [id number] 2.16.840.1.304592.3.579. 2.593 1982 Unknown [id number] 2.840.1.552802.3.579. 2.175 1982 Unknown [id number] 2.16840.1.499009.3.579. 2.175 1982 Unknown [id number] 2.840.1.225997.3.579. 2.175 1982 Unknown [id number] 2.840.1.370581.3.579. 2.1285 1982 Unknown [id number] 2.0.1.403414.3.579. 2.1285 1982 Unknown [id number] 2.840.1.727796.3.579. 2.1285 1982 Unknown [id number] 2.0.1.519850.3.579. 2.196 1982 Unknown [id number] 2.0.1.954625.3.579. 2.196 1982 Unknown [id number] 2.0.1.763173.3.579. 2.196 1982 Unknown [id number] 2.840.1.360317.3.579. 2.196 1982 Unknown [id number] 20.1.348923.3.579. 2.196 1982 Unknown [id number] 2.840.1.556153.3.579. 2.1285 1982 Unknown [id number] 05.19.830.1.537351.3.579. 2.1285 1982 Unknown [id number] 2.840.1.091946.3.579. 2.1285 1982 Unknown [id number] 2.840.1.554563.3.579. 2.1285 1982 Unknown [id number] 2.840.1.161175.3.579. 2.718 1982 Unknown [id number] 2.840.1.289549.3.579. 2.8 1982 Unknown [id number] 2.840.1.739800.3.579. 2.8 1982 Unknown [id number] 2.840.1.102354.3.579. 2.1258 1982 Unknown [id number] 2.840.1.562101.3.579. 2.1258 1982 Unknown [id number] 2.840.1.665503.3.579. 2.1258 1982 Unknown [id number] 2.840.1.174164.3.579. 2.1258 1982 Unknown [id number] 20.1.590110.3.579. 2.1258 1982 Unknown [id number] 2.0.1.185255.3.579. 2.1258 1982 Unknown [id number] 2.1.404052.3.579. 2.1258 1982 Unknown [id number] 2840.1.816735.3.579. 2.1258 1982 Unknown [id number] 20.1.106205.3.579. 2.1258 1982 Unknown [id number] 2840.1.249079.3.579. 2.1258 1982 Unknown [id number] 05.19.830.1.723630.3.579. 2.1285 1982 Unknown [id number] 2840.1.734830.3.579. 2.1285 1982 Unknown [id number] 2840.1.659056.3.579. 2.128 1982 Unknown [id number] 840.1.051728.3.579. 2.1286 1982 Unknown [id number] 2.16.840.1.727194.3.579. 2.1286 1982 Unknown [id number] 2.16.840.1.033483.3.579. 2.1286 1959 Unknown [id number] Unknown [id number] 2.16.840.1.623184.3.579. 2.531 Social History Date Type Detail Facility Start: 06-15-2015 End: 10-09-2022 Tobacco smoking status MEIS Never smoked tobacco [employer] Start: 06-15-2015 End: 10-09-2022 Tobacco use and exposure Smokeless tobacco non-user [employer] Phone: Start: 08-19-2021 End: 01-26-2024 Alcohol intake Current non-drinker of alcohol (finding) [employer] Phone: Start: 08-19-2021 End: 12-06-2023 [facility] Start: 06-15-2015 History SDOH Alcohol Comment rarely [employer] Phone: Start: 1980 [facility] Start: 08-09-2021 End: 01-03-2022 Exposure to SARS-CoV-2 (event) Not sure [employer] Phone: History of tobacco use Passive smoker [facility] [employer] Phone: Start: 04-14-2023 End: 12-06-[address] [facility] Adolescent depressio n screening assessment 0 [facility] Start: 05-04-2023 End: 02-26-2024 Alcohol intake Ex-drinker (finding) [facility] Start: 10-09-2022 Alcohol Comment Alcohol: 1 or 2 drinks on typical day/monthly or less. Caffeine: 1-2 cups/day tea [facility] Start: 1980 Sex Assigned At Female [facility] Start: 09-21-2022 Gender identity Identifies as female gender (finding) [facility] Start: 09-21-2022 Sexual orientation Heterosexual (fin gauri) [facility] Start: 11-06-2014 End: 04-11-2024 Sex Female (finding) [facility] Has the electric, gas, oil, or water company threatened to shut off services in your home in past 12Mo No [facility] Tobacco smoking status NHIS Unknown if ever smoked [facility] Work Phone: NEGATED: Highlighted row [facility] Medical Equipment Procedure Code Equipment Code Equipment Origin al Text Equipment Identifier Dates [id number], [id number] Start: 09-14-2023 End: 12-13-2023 Goals Date Patient [...] Facility 03-22-2024 History of Present illness Narrative [facility] received referral for BRCA testing. Referral faxed to genetics. documented in this encounter [facility] 02-26-2024 History of Present illness Narrative [...] mg, Daily RT Blood Glucose Monitoring Suppl (Deeden Glucometer) w/Device kit 1 kit, Does not apply, Daily, Use four times daily to check FSBS. In the morning prior to breakfast & 1 hour after each meal for a total of 4times daily. Lancets (ClearMRI SolutionsTouch Delica Plus [id number]) misc MONOJECT 3CC SYRINGE 3 ML misc [...] Morbid obesity with BMI of 45.0-49.9, adult ([facility]) PCOS (polycystic ovarian syndrome) Pre-diabetes Rectal bleeding Off and on since 2018 HISTORY PAST MEDICAL HISTORY SOCIAL HISTORY Past Medical History: Diagnosis Date Encounter for gynecological examination (general) (routine) without abnormal findings Fibrocystic breast 05/2022 Frequent headaches Labial cyst Menorrhagia Migraine (CMS/HCC) Chronic Morbid obesity with BMI of 45.0-49.9, adult ([facility]) PCOS (polycystic ovarian syndrome) Pre-diabetes Rectal bleeding Off and on since 2018 Weight gain Social History Tobacco Use Smoking status: Never Smokeless tobacco: Never Substance Use Topics Alcohol use: Not Currently Comment: Alcohol: 1 or 2 drinks on typical day/monthly or less. Caffeine: 1-2 cups/day tea Drug use: Never FAMILY HISTORY Family History Problem Relation Name Age of Onset Hypertension Maternal Grandfather Kittery Heart disease Maternal Grandfather Kittery Stroke Maternal Grandfather [place]y Cancer Maternal Grandfather [place] Drug abuse Maternal Grandfather [place] Drug abuse Father Tyrese Diabetes Paternal Grandfather [...] nursing note reviewed. Exam conducted with a returner present. Vitals: Estimated body mass index is [...] Sanjeev Lopez DO documented in this encounter [facility] 01-26-2024 History of Present illness Narrative 01/26/2024 6:12 PM Opened this encounter to order [place] but talked to patient's pharmacy that it was an insurance issue and they are going to fulfill the prescription now. No new orders were placed. Dr. Price made aware. ALFONSO LIANG MD PGY4 Gen Surg Residnet documented in this encounter [facility] 01-14-2024 Note Education Materials Neurology Migraine [...] these instructions at home: Medicines ? Take cliy-rjn-qbgrdaw and prescription medicines only as told by [...] Headache and Migraine Patients (CHAMP): [email or web address] ? Citizen Of [place] Migraine Foundation: [email or web address] ? National Headache Foundation: [...] health care p (more content not included)... [facility] 01-03-2024 History of Present illness Narrative [...] BY MOUTH PREOP Lancets (OneTouch Delica Plus [id number]) misc MONOJECT 3CC SYRINGE 3 ML misc nystatin (Mycostatin) cream Topical, 2 times daily, Dispense cream that does NOT have perfumes added. OneTouch Verio test strip Qelbree 200 mg, Oral, [...] Name Age of Onset Hypertension Maternal Grandfather Kittery Heart disease Maternal Grandfather Kittery Stroke Maternal Grandfather Kittery Cancer Maternal Grandfather Kittery Drug abuse Maternal Grandfather Kittery Drug abuse Father Tyrese Diabetes Paternal Grandfather [...] nursing note reviewed. Exam conducted with a returner present. Vitals: Estimated body mass index is [...] Sanjeev Lopez DO documented in this encounter [facility] 12-06-2023 History of Present illness Narrative Reason for Appointment: Patient ID: Cindy Dumont is a 43 y.o. female who presents for Endometrial Biopsy and Pre-op Visit Patient presents today for Pre Op/Endometrial Biopsy appointment. Patient is scheduled to undergo Endometrial Ablation with Mariel on 12/22/[address] Lopez at [facility]. MEDICATIONS Current Outpatient Medications Medication Instructions Alcohol Swabs (Alcohol Prep Pad) 70 % pads 1 Pad, Topical, 2 times daily, Use twice daily to check FSBS. Blood Glucose Monitoring Suppl ([employer] Glucometer) w/Device kit 1 kit, Does not [...] disease Maternal Grandfather Neri Stroke Maternal Grandfather Neri Cancer Maternal Grandfather Kittery Drug abuse Maternal Grandfather Neri Drug abuse Father Tyrese Diabetes Paternal Grandfather [...] nursing note reviewed. Exam conducted with a returner present. Vitals: Estimated body mass index is [...] reviewed, and patient is to proceed to [facility] OR. Follow Up: Patient is to follow up between 1-2 weeks post op to assess proper healing and recovery from procedure. Documented by Monique Cantrell LPN on behalf of: Sanjeev Lopez DO documented in this encounter [facility] 11-29-2023 History of Present illness Narrative Reason [...] to check FSBS. Blood Glucose Monitoring Suppl ([employer] Glucometer) w/Device [...] Morbid obesity with BMI of 45.0-49.9, adult ([facility]) PCOS (polycystic ovarian syndrome) Pre-diabetes Rectal bleeding Off and on since 2018 Weight gain Social History Tobacco Use Smoking status: Never Smokeless tobacco: Never Substance Use Topics Alcohol use: Not Currently Comment: Alcohol: 1 or 2 drinks on typical day/monthly or less. Caffeine: 1-2 cups/day tea Drug use: Never FAMILY HISTORY Family History Problem Relation Name Age of Onset Hypertension Maternal Grandfather Kittery Heart disease Maternal Grandfather Kittery Stroke Maternal Grandfather Kittery Cancer Maternal Grandfather Kittery Drug abuse Maternal Grandfather Kittery Drug abuse Father Tyrese Diabetes Paternal Grandfather . SURGICAL HISTORY Past Surgical History: Procedure Laterality Date APPENDECTOMY 2007 SECTION, LOW TRANSVERSE 04/2019 CHOLECYSTECTOMY 2005 IUD INSERTION 2010 Mirena PAP [...] nursing note reviewed. Exam conducted with a returner present. Vitals: Estimated body mass index is [...] Sanjeev Lopez DO documented in this encounter [facility] 08-23-2023 Note Patient Education Ma terials Follows: [...] wine (148 mL (more content not included)... [facility] 06-12-2023 History of Present illness Narrative [...] take another few months to subside. Recommended qgxw-rew-igcugeh pain relievers as needed. She is content [...] severe symptoms. documented in this encounter [facility] 05-16-2023 History of Present illness Narrative [facility] Chief Complaint: [...] a snap. She initially followed up with [facility] Orth[facility] and was diagnosed with right [...] External notes reviewed: I reviewed notes from [facility] orthopaedics. Review of test/study reports: I reviewed an x-ray obtained of the right ring finger. There were no acute osseous abnormality such as fracture dislocation. My personal interpretation of tests: I personally viewed and interpreted X-rays from [facility] as above. Xrays done in office today: None. Assessment: 1. Mallet deformity of right ring finger - [facility] - [place], [place] 2. Finger injury, right, initial encounter - [facility] - [place], [place] Plan: I discussed treatment options with [...] with her flexion. documented in this encounter [facility] 05-10-2023 Evaluation note Encounter Date Diagnosis Assessment Notes May, Adult ADHD (attention deficit hyperactivity disorder) (ICD-10 - F90.9) [facility] Other 02-01-2024 History of Present illness Narrative* [...] finger for about 2 weeks. [place] [facility] due to having numbness in finger and unable to straighten it. Had XR at . On 03/13, pt went to [facility] and had another XR. Unable to get into hand specialist at [facility] until May 16. Continues to have [...] crooked. PT is RT handed Prior [place] [facility] [place], XR, Splint, [facility], XR 03/13/23, Ice, Heat, IBU, [place] ALLERGIES: No Known Allergies HOME MEDICATIONS: Current Outpatient Medications Medication Instructions amphetamine-dextroamphetamine (Adderall) 20 MG tablet 1 TABLET ORALLY MID DAY 30 DAYS cyclobenzaprine (Flexeril) 10 MG tablet PLEASE SEE ATTACHED FOR DETAILED DIRECTIONS fluconazole (DIFLUCAN) 100 mg, Oral, Daily nystatin (Mycostatin) 467908 UNIT/GM powder APPLY TO AFFECTED AREA TOPICALLY [...] normal Pronation: normal Supination: normal Muscle Strength Assistant Bookkeeper: 3/5 Other Erythema: absent Pulse: present Comments: [...] develop for requiring urgent evaluation. 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 [facility] [id number] Evaluation note* Encounter Date Diagnosis Assessment Notes Treatment Notes Treatment Clinical Notes Apr, Adult ADHD (attentio n deficit hyperactivity disorder) (ICD-10 - F90.9) [facility] Other 01-10-2024 Evaluation note* Encounter Date Diagnosis Assessment Notes Treatment Notes Treatment Clinical Notes Apr, Adult ADHD (attentio n deficit hyperactivity disorder) (ICD-10 - F90.9) [facility] Other 01-09-2024 Evaluation note* Encounter Date Diagnosis Assessment Notes Treatment Notes Treatment Clinical Notes Apr, Adult ADHD (attentio n deficit hyperactivity disorder) (ICD-10 - F90.9) [facility] Other 01-08-2024 Evaluation note* Encounter Date Diagnosis Assessment Notes Treatment Notes Treatment Clinical Notes Apr, Adult ADHD (attentio n deficit hyperactivity disorder) (ICD-10 - F90.9) [facility] Other 12-07-2023 NotePatient Education Materials Follows: Mallet [...] or lying down. General instructions ? Take lfew-tbg-ifxdgqm and prescription medicines only as told by [...] by your health care p (more contentnot included)...[id number] Evaluation note * Encounter Date Diagnosis Assessment Notes Treatment Notes Treatment Clinical Notes Jan, Adult ADHD (attentio n deficit hyperactivity disorder) (ICD-10 - F90.9) [facility] Other 10-02-2023 Evaluation note* Encounter Date Diagnosis [...] in 3 months or sooner if needed. [facility] Other 09-08-2023 Evaluation note* Encounter Date Diagnosis Assessment Notes Treatment Notes Treatment Clinical Notes Dec, Adult ADHD (attentio n deficit hyperactivity disorder) (ICD-10 - F90.9) [facility] Other 09-07-2023 Evaluation note* Encounter Date Diagnosis Assessment Notes Treatment Notes Treatment Clinical Notes Dec, Adult ADHD (attentio n deficit hyperactivity disorder) (ICD-10 - F90.9) [facility] Other 08-30-2023 Evaluation note* Encounter Date Diagnosis [...] Cutaneous candidiasis (ICD-10 - B37.2) Refilled diflucan. [facility] Other 07-11-2023 Hospital Discharge instructions* Discharge Instructions* RIZWAN Dietz CNP - 10/11/2022 8:08 PM EDT Please call and schedule a follow-up appointment with [facility]. Use an ice pack or [...] through Care Everywhere. * RICE: General Info (Sri Lankan) * Ankle Sprain (Sri Lankan) [facility] Discharge instructions* Instructions* Radha Sanders MD - 08/19/2021 May use ice or heat, whichever feels better. May use [place] for pain. Prednisone as directed. Follow-up with [...] appointment THANK YOU!!! From [facility] and [facility] On behalf of the Emergency Department staff at [facility], I would like to thank you for giving us the opportunity to address your health care needs and concerns. We hope that during your visit, our service was delivered in a professional and caring manner. Please keep [facility] in mind as we walk with [...] your visit at [email or web address] and let us know about your experience * Attachments The following attachments cannot be sent through Care Everywhere. * Herniated Disc (Sri Lankan) [facility] [employer] Phone: evallfuixf note* Diagnosis Herniated lumbar intervertebral disc- Primary Displacement of lumbar intervertebral disc without myelopathy documented [facility] Phone: evaluation note* Diagnosis Gastroenteritis- Primary Other and unspecified noninfectious gastroenteritis and colitis documented in this encounter [facility] [employer] Work Phone: evaluation note* Diagnosis Sprain of right ankle, unspecified ligament, initial encounter- Primary documented in this encounter [facility] [employer] AudioEvaluation note* Diagnosis Back pain, unspecified back location, unspecified back pain laterality, unspecified chronicity- Primary documented in this encounter [facility] System[facility] noteNo [facility] Other Evaluation note* Diagnosis 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 Pain in finger of right hand Pain in soft tissues of limb documented in this encounter [facility] HealthcareEvaluation note* Diagnosis Herniated lumbar intervertebral disc- Primary Displacement of lumbar intervertebral disc without myelopathy documented in this encounter [facility] SystemEvaluation note* Diagnosis 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 Finger injury, right, initial encounter documented in this encounter [facility] SystemEvaluation note* Diagnosis Herniated lumbar intervertebral disc- Primary Displacement of lumbar intervertebral disc without myelopathy Lumbar radiculopathy, chronic documented in this encounter [facility] SystemEvaluation noteNo assessment information available [facility] Work Phone: Evaluation note* Diagnosis Lumbar radiculopathy, chronic- Primary Herniated lumbar intervertebral disc Displacement of lumbar intervertebral disc without myelopathy documented in this encounter [facility] SystemEvaluation note* Diagnosis 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 documented in this encounter [facility] SystemEvaluation note* Diagnosis Postop check Follow-up examination, following unspecified surgery Low ferritin level Other nonspecific findings on examination of blood documented in this encounter [facility] HealthcareEvaluation note* Diagnosis Breast pain Mastodynia documented in this encounter [facility] HealthcareEvaluation note* Diagnosis Encounter to discuss procedure Menorrhagia with regular cycle Decreased libido documented in this encounter [facility] HealthcareEvaluation note* Diagnosis Pre-op examination Menorrhagia with regular cycle Abnormal uterine bleeding (AUB) Pelvic pain Hormone disorder Unspecified endocrine disorder documented in this encounter [facility] HealthcareEvaluation note* Diagnosis Onset Date Resolution Status Admit Date Adult ADHD acute April 11 9:46am Wellness examination acute 2024 9:46am [facility] Work Phone: History general Narrative - Reported* Type Description Date Medical History PCOS/insulin resistant Medical History PCOS (polycystic ovarian syndrom e) Medical History Frequent headaches Medical History Gestational diabetes Medical History Prediabetes Surgical History cholecystectomy 2004 Surgical History appendectomy 2006 Surgical History Hospitalization History see surgical hx [facility] Other Hospital Discharge instructions* Attachments The following attachments cannot be sent through Care Everywhere. * Gastroenteritis (Sri Lankan) [facility] Work Phone: InstructionsNot on filedocumented in this encounter [facility] SystemInstructionsNot on filedocumented in this encounter [facility] SystemInstructionsNot on filedocumented in this encounter [facility] SystemInstructionsNot on filedocumented in this encounter [facility] SystemInstructions* Pre-Procedure Instructions - Bessie Boswell RN - 01/18/2024 3:45 PM EDT Your surgery/procedure is scheduled at [facility] on 01/25/24 at 10 am Arrival Time 8 am [facility] Address: [address] [place] [address], [facility], [address] [place] [address] in the Emergency Center Parking lot. Report to the hotel front office manager in the Emergency/Surgery Registration lobby of the hospital. Notify your SURGEON if you develop any illness such as a cold, cough, fever, sore throat, vomiting or are hospitalized between now and your surgery. Please call Pre-Admission Clinic at [phone] if you have any questions prior to surgery. For questions the morning of surgery, call the Pre-op Department at [phone]. Medication Instructions (Do not stop your medications [...] would like to schedule therapy at a [facility] facility, please call [phone] ([phone]). Do not use lotions, creams, powders, perfume, make up, cologne or after-shaves day of surgery. Remove ALL jewelry including wedding rings, body piercings, hair extensions that contain metal, nail macedonian, make-up, and contact lens. You may brush your teeth the morning of surgery, but do not swallow the water. Wear your dentures and partial plates to the hospital (no adhesive). Shower the night the before. If applicable, use the CHG (chlorhexidine gluconate) soap or wipes. Please be advised, [facility] has transitioned to a cashless payment system. [...] RIGHTS AND RESPONSIBILITIES As a patient at [facility], you have the right to: Receive medical care and be informed of who is taking care of you Be treated with dignity and respect Have a family member/financial foundations representative of choice and your physician notified of your admission Receive information and actively participate in decisions about your care and treatment Refuse care, treatment and services Decide who may provide your support and speak for you Access mandaen and spiritual services Participate in ethical issues [...] of hospital charges and payment methods Patient/patient financial foundations representative responsibilities are to: Provide information about health status to facilitate care, treatment and services Follow the treatment, plan, keep appointments and speak up when you do not understand the plan Respect the rights of other patients and healthcare personnel Follow organizational rules and regulations that support quality care and a safe environment Fulfill financial obligations as promptly as possible [facility] SystemInstructionsNot on filedocumented in this encounter [facility] SystemInstructionsNot on filedocumented in this encounter [facility] SystemInstructionsNot on filedocumented [facility] this [facility]* Pre-Procedure Instructions - Bessie Boswell RN - 01/18/2024 3:45 PM EDT Your surgery/procedure is scheduled at [facility] on 01/25/24 at 10 am Arrival Time 8 am [facility] Address: [address] [place] [address], [address] [place] [address] in the Emergency Center Parking lot. Report to the hotel front office manager in the Emergency/Surgery Registration lobby of the hospital. Notify your SURGEON if you develop any illness such as a cold, cough, fever, sore throat, vomiting or are hospitalized between now and your surgery. Please call Pre-Admission Clinic at [phone] if you have any questions prior to surgery. For questions the morning of surgery, call the Pre-op Department at [phone]. Medication Instructions (Do not stop your medications [...] would like to schedule therapy at a [facility] facility, please call [phone] ([phone]). Do not use lotions, creams, powders, perfume, make up, cologne or after-shaves day of surgery. Remove ALL jewelry including wedding rings, body piercings, hair extensions that contain metal, nail macedonian, make-up, and contact lens. You may brush your teeth the morning of surgery, but do not swallow the water. Wear your dentures and partial plates to the hospital (no adhesive). Shower the night the before. If applicable, use the CHG (chlorhexidine gluconate) soap or wipes. Please be advised, [facility] has transitioned to a cashless payment system. [...] RIGHTS AND RESPONSIBILITIES As a patient at [facility], you have the right to: Receive medical care and be informed of who is taking care of you Be treated with dignity and respect Have a family member/financial foundations representative of choice and your physician notified of your admission Receive information and actively participate in decisions about your care and treatment Refuse care, treatment and services Decide who may provide your support and speak for you Access mandaen and spiritual services Participate in ethical issues [...] of hospital charges and payment methods Patient/patient financial foundations representative responsibilities are to: Provide information about health status to facilitate care, treatment and services Follow the treatment, plan, keep appointments and speak up when you do not understand the plan Respect the rights of other patients and healthcare personnel Follow organizational rules and regulations that support quality care and a safe environment Fulfill financial obligations as promptly as possible [facility] (n[facility])* Consultation (Routine) - Pending Review Specialty Diagnoses / Procedures Referred By Contact Referred To Contact Physical Medicine and Rehabilitation Diagnoses Herniated lumbar intervertebral disc Lumbar radiculopathy, chronic Reny No APRN-CNP [address] [facility] [address] [place] [address] Vishal Martin DO [address] [place] [address] Referral ID Status Reason Start Date Expiration Date Visits Requested Visits Authorized [id number] Pending Review Specialty Services Required 05/24/2023 05/23/2024 1 1 [facility] for referral (narrative)* Consultation (Routine) - Pending Review Specialty Diagnoses / Procedures Referred By Angela hart Referred To Contact Pain Medicine Diagnoses Lumbar radiculopathy, chronic Herniated lumbar intervertebral disc Reny No APRN-CNP [address] [place] [address] Davis Silva MD [address] [place] [address] Referral ID Status Reason Start Date Expiration Date V isits Requested Visits Authorized [id number] Pending Review 06/12/2023 06/11/[address] [facility] Advance Directives No Advanced Directives Records FoundDocuments on File Type Date Recorded Patient Web Sizer Expl anation ACP-Advance Directive ACP-Power of Head Machinist Advance Directive Response Recorded Date/ Time Advance Directives No December 7:20pm Date Activated Date Inactivated Comments 01/25/2024 2:30 PM 01/26/2024 2:17 PM Advance Directive Response Recorded Date/ Time Advance Directives No April 10, 2024 9:32am Summary Purpose Family History No Family History Records Found Relationship Condition Age at Onset Recorded Date/T omkar grandparent Hypertension Unknown Unknown Alzheimer's dementia Unknown Chief Complaint and Reason for Visit Chief Complaint Admit Date Amb Documentation January 19, 2024 9 :18am Amb Documentation January 30, 2024 9 :01am Wellness/High BP April 11, 2024 9: 46am Reason for Visit Admit Date Adult ADHD April 11, 2024 9: 46am Wellness examination April 11, 2024 9 :46am Chief Complaint Menorrhagia with reg ular cycle/AUB [...] site of digit, initial encounter Nicole Lockwood, RIZWAN-LAYUP WORKER [address], [place] [address] Rohit Smith MD [address] [facility] [address] [place] [address] Referral ID Status Reason Start Date Expiration Date Visits Requested Visits Authorized [id number] Pending Review Specialty Services Required 3 03/12/2024 [...] would not scan at bedside. Verified with [facility] prior to administration.) Scheduled Medication Order [...] Care Teams (unrecognized sec tion and content) Retail Sales Professional Relationship Specialty Start Date End Date Johnathon Winter MD PCP - General Family Medicine 03/08/16 Retail Sales Professional Relationship Specialty Start Date End Date Johnathon Winter MD PCP - General Family Medicine 03/08/16 Retail Sales Professional Relationship Specialty Start Date End Date Johnathon Winter MD PCP - General Family Medicine 03/08/16 Retail Sales Professional Relationship Specialty Start Date End Date Johnathon Winter MD [address] [place] [id number] PCP - General 03/13/23 Retail Sales Professional Relationship Specialty Start Date End Date Johnathon Winter MD [address] [place] [id number] PCP - General Family Medicine 12/12/22 Retail Sales Professional Relationship Specialty Start Date End Date Johnathon Winter MD [address] [place] [id number] PCP - General 03/13/23 Retail Sales Professional Relationship Specialty Start Date End Date Johnathon Winter MD [address] [place] [id number] PCP - General 03/13/23 Retail Sales Professional Relationship Specialty Start Date End Date Johnathon Winter MD [address] [place] [id number] PCP - General 03/13/23 Team Status: Active Member Role Status Dates Johnathon Winter MD Primary Care Provide r, Attending Provider Active Start: May 10, 2023 Team Status: Inactive Member Role Status Dates Tee Peterson MD Attending Provider Active Start: May 23, 2023 End: May 23, 2023 Retail Sales Professional Relationship Specialty Start Date End Date Johnathon Winter MD [address] [place] [address] [place] [id number] PCP - General 03/13/23 Team Status: Active Member Role Status Dates Sanjeev Lopez DO Attending Provider Active Start : October 25, 2023 Team Status: Active Member Role Status Dates Sanjeev Lopez DO Attending Provider Active Start : November 29, 2023 Team Status: Inactive Member Role Status Dates Sanjeev Lopez DO Attending Provider Active Start : December 06, 2023 End: December 06, 2023 Retail Sales Professional Relationship Specialty Start Date End Date Johnathon Winter MD [address] [place] [facility] [place] [address] PCP - General Family Medicine 12/12/22 Retail Sales Professional Relationship Specialty Start Date End Date Johnathon Winter MD [address] [place] [address] PCP - General Family Medicine 12/12/22 Retail Sales Professional Relationship Specialty Start Date End Date Johnathon Winter MD [address] [place] [id number] PCP - General 03/13/23 Retail Sales Professional Relationship Specialty Start Date End Date Johnathon Winter MD [address] [place] [facility] [place] [phone] PCP - General Family Medicine 12/12/22 Retail Sales Professional Relationship Specialty Start Date End Date Johnathon Winter MD [address] [place] [facility] [place] [address] PCP - General Family Medicine 12/12/22 Retail Sales Professional Relationship Specialty Start Date End Date Johnathon Winter MD [address] [place] [address] PCP - General Family Medicine 12/12/22 Retail Sales Professional Relationship Specialty Start Date End Date Johnathon Winter MD [address] [place] [phone] PCP - General Family Medicine 12/12/22 Retail Sales Professional Relationship Specialty Start Date End Date Johnathon Winter MD [address] [place] [address] PCP - General Family Medicine 12/12/22 Retail Sales Professional Relationship Specialty Start Date End Date Johnathon Winter MD [address] [place] [address] PCP - General Family Medicine 12/12/22 Retail Sales Professional Relationship Specialty Start Date End Date Johnathon Winter MD [address] [place], [place] [phone] PCP - General 03/13/23 Retail Sales Professional Relationship Specialty [place] [address] [place] [address] PCP - General Family Medicine 12/12/22 Team Status: Active Member Role Status Dates Johnathon Winter MD Primary Care Provider Active Team Status: Active Member Role Status Dates Santy Mckeon MD Attending Provider Active Start: January 14, 2024 Team Status: Active Member Role Status Dates Radha Charles CMA Attending Provider Active Start: January 19, 2024 Team Status: Active Member Role Status Dates Radha Charles CMA Attending Provider Active Start: January 30, 2024 Team Status: Active Member Role Status Dates Sanjeev Lopez DO Attending Provider Active Start : April 01, 2024 Team Status: Inactive Member Role Status Dates Johnathon Winter MD Primary Care Provide r, Attending Provider Active Start: April 11, 2024 End: April 11, 2024 INFORMATION SOURCE (unrecogn ized section and content) DATE CREATED AUTHOR 07/17/2022 [facility] DATE CREATED AUTHOR AUTHOR'S ORGANIZ ATION 10/12/2022 [facility] DATE CREATED AUTHOR AUTHOR'S ORGANIZ ATION 06/12/2023 [facility] DATE CREATED AUTHOR AUTHOR'S ORGANIZ ATION 12/01/2023 [facility] DATE CREATED AUTHOR AUTHOR'S ORGANIZ ATION 12/14/2023 [facility] DATE CREATED AUTHOR AUTHOR'S ORGANIZ ATION 01/26/2024 [facility] DATE CREATED AUTHOR AUTHOR'S ORGANIZ ATION 01/28/2024 [facility] DATE CREATED AUTHOR AUTHOR'S ORGANIZ ATION 02/28/2024 [facility] DATE CREATED AUTHOR AUTHOR'S ORGANIZ ATION 04/14/2024 [facility] Goals (unrecognized section and content) Goals may [...] BE BASED ON THE PRIMARY CLINICAL RECORDS. [employer] provides no warranty or guarantee of the accuracy or completeness of information in this document.
[2024-04-15 11:13] LABS: Chol HDL Ratio 2.7; Cholesterol 174 mg/dL (<=200); HDL Cholesterol 65 mg/dL (40-60); Triglycerides 83 mg/dL (<=150); VLDL CHOLESTEROL 16.6 mg/dL
== END 2024-04-15 09:52 | disposition home or self-care (01) ==
LOC: LAB 09:55
PROVIDERS: PCP Family Medicine; Visit Provider Family Medicine
DX: Z00.00 Encounter for general adult medical examination without abnormal findings (principal)
CPT/HCPCS: 36415; 80061

== ENCOUNTER 2024-07-08 07:44 | Outpatient (OUT) | payer BC, SELFPAY ==
[2024-07-08 08:06] LABS: Basophils Absolute Auto 0.1 10^3/uL (0.0-0.1); Basophils Percent Auto 0.8 % (0.2-2.0); Eosinophils Absolute Auto 0.2 10^3/uL (0.0-0.7); Eosinophils Percent Auto 2.6 % (0.9-7.0); Hematocrit 40.5 % (36.0-48.0); Hemoglobin 13.3 g/dL (12.0-16.0); Lymphocytes Percent Auto 32.7 % (20.5-60.0); Mean Corpuscular HGB Conc 32.8 g/dL (29.9-35.2); Mean Corpuscular Hemoglobin 29.2 pg (26.7-34.0); Mean Corpuscular Volume 88.8 fL (81.0-99.0); Mean Platelet Volume 9.3 fL (9.5-13.5); Monocytes Absolute Auto 0.4 10^3/uL (0.3-0.8); Monocytes Percent Auto 6.2 % (1.7-12.0); Neutrophils Absolute Auto 3.6 10^3/uL (1.4-6.5); Neutrophils Percent Auto 57.7 % (43.0-75.0); Platelet Count 268 10^3/uL (150-450); Red Blood Count 4.56 10^6/uL (4.20-5.40); Red Cell Distribution Width 14.8 % (11.0-15.0); White Blood Count 6.2 10^3/uL (4.0-11.0)
[2024-07-08 08:23] LABS: Alanine Aminotransferase 14 U/L (14-59); Albumin Globulin Ratio 1.2; Albumin Level 3.6 g/dL (3.4-5.0); Alkaline Phosphatase 92 U/L (46-116); Anion Gap 8.5; Aspartate Amino Transferase 16 U/L (15-37); BUN Creatinine Ratio 13.5; Bilirubin Total 0.4 mg/dL (0.2-1.0); Calcium 8.8 mg/dL (8.5-10.1); Carbon Dioxide 28.6 mmol/L (21.0-32.0); Chloride 105 mmol/L (98-107); Estimated GFR (African America >60 (>=60 mL/min/1.73m^2); Estimated GFR (Non-African Ame >60 (>=60 mL/min/1.73m^2); Globulin 3.1 g/dL; Glucose 77 mg/dL (74-106); Potassium 4.1 mmol/L (3.5-5.1); Sodium 138 mmol/L (136-145); Total Protein 6.7 g/dL (6.4-8.2)
== END 2024-07-08 07:45 | disposition home or self-care (01) ==
LOC: LAB 07:44
PROVIDERS: PCP Family Medicine; Visit Provider Internal Medicine Interventional Cardiology
DX: I10 Essential (primary) hypertension (principal)
CPT/HCPCS: 36415; 80053; 82088; 83835; 84244; 85025

== ENCOUNTER 2024-07-22 12:32 | Outpatient (OUT) | payer BC, SELFPAY | END 2024-07-22 12:33 | disposition home or self-care (01) | LOC: US 12:33 | PROVIDERS: PCP Family Medicine; Visit Provider Internal Medicine Interventional Cardiology | DX: Z01.419 Encounter for gynecological examination (general) (routine) without abnormal findings (principal); I10 Essential (primary) hypertension | CPT/HCPCS: 76775; 87624; 88175; 93975 ==

== ENCOUNTER 2024-07-22 20:35 | Outpatient (REF) | payer BC, SELFPAY | END 2024-07-22 20:36 | disposition home or self-care (01) | LOC: LAB 20:35 | PROVIDERS: PCP Family Medicine; Visit Provider Obstetrics & Gynecology | DX: Z01.419 Encounter for gynecological examination (general) (routine) without abnormal findings (principal) | CPT/HCPCS: 87624; 88175 ==

== ENCOUNTER 2024-11-28 09:48 | Outpatient (OUT) | payer BC, SELFPAY ==
--- OUTSIDE RECORDS SUMMARY | 2023-08-17 10:45 | XMS_ITS | Continuity of Care Document ---
Author [facility] [email or web address] [facility] Address [address] [place] [address] Phone Care Team Providers Care Medical Technologist Microbiology Name Role Phone Kaleb Price DO Unavailable Unavailabl e Allergies, Adverse Reactions, Alerts Substance Reaction Status Criticality No Known Allergies Active No Inform ation Medications Medication Instructions Dosage Effective Dates (start - stop) Status Comments nystatin 100,000 unit/gram topical powder apply by topical route 2 times every day to the affected area(s) 0.00 - Active nystatin 100,000 unit/gram topical ointment apply by topical route 2 times every day to the affected area(s) 0.00 - Active Mounjaro 10 mg/0.5 mL subcutaneous pen injector inject (10MG) by subcutaneous route every week 10 MG - Active Vyvanse 50 mg capsule take 1 capsule by oral route every day in the morning 50 MG - Active Adderall 20 mg tablet take 1 tablet by o ral route every day before breakfast 20 MG - Active Procedures Procedure Date OFFICE/OUTPATIENT VISIT, [facility] Advance Directives Directive Yes / No Effective Date File Name No Information Encounters Encounter Description Practice Location Reason(s) For Visit Diagnoses Date Provider Providers Copied on Encounter OFFICE/OUTPA TIENT VISIT, [facility] [email or web address] [facility], [address], [place], [place], [id number] , [place] tel:[phone] [facility] Surgery Panniculectom y cosult. (chief complaint) Panniculitis affecting regions of neck and back, site unspErythema intertrigo Albert Rosales. [address], [place], [place], [id number], . tel:[phone] Referring Provider: Kaleb Price DO, [address], [place], [address]. tel:[phone] Family History Family Member Type Diagnosis Age At Onset No Information Payers Payer name Insurance type Covered constitution party ID Authoriza adilson(s) Keyon WONG [id number] Social History Type Description Quantity Date Captured Comments Alcohol Use Details Unknown Caffeine Use Details Unknown Tobacco Use Status Current non-smoker Smoking Status Never smoker Non-Smoking Tobacco Use Details : No Details Available : No Details Available Sex Female Vital Signs Date / Time: Height Weight BMI Pulse Rate Blood Pressure Temperature Respiratory Rate Body Surface Area Head Circumference Head Circ. Percentile Wt./Ayaz. Percentile BMI percentile Pulse Ox Inhaled Ox 2:22 PM 66.00 in 96.162 kg (212.00 lbs) 34.2 2 kg/m eter (2) 132/80 mm[Hg] Chief Complaint And Reason For Visit From encounter dated '08/17/2023 14:45'. Panniculectomy cosult. (chief complaint) Reason For Referral Reason For Referral No Information History Of Present Illness Encounter Date Complaint History Of Prese nt Illness Panniculectomy cosult. Comments: Cindy is a very pleasant 42-year-old female who was referred to me for panniculectomy after massive weight loss. She has done a fantastic job losing a very large amount weight. Beginning weight was 315 lb and patient is currently to 212 lb. She is lost weight using MounjaroPatient has remained at a stable weight for greater than 6 months. Abdominal pannus hangs below the level of the pubis. This is hindering her further weight loss and exercise goals. Pt is plagued by very severe infections and intertrigo for which she has tried nystatin powder as well as systemic Diflucan longer than the standard dosing.Abdominal pannus is causing low back pain for which she has tried seeing pain management and received steroid injections in her L4-L5 and L5-S1 area bilaterally.Non smoker, non diabetic, not on oral steroids or immune modulators. Functional Status Date Functional Assessmen t No Information Instructions Date Instruction Additional Infor mation No Information Assessments Type Assessment Date assessment Panniculitis affecting back assessment Erythema intertrigo Patient Care Teams Name Effective Dates (start - stop) Status Members No Information
--- OUTSIDE RECORDS SUMMARY | 2024-11-28 09:54 | XMS_ITS | Encounter Summary ---
Author Organization [facility] Address [address] [place] [address] Care Team Providers Care Middle School Counselor Name Role Phone Royal Cabrera MD Primary Care Provider [phone] Miller Mccormick MD Unavailable Unavailable Reyna Alves MOLD PRESSER Unavailable Encounter Details Date Type Department Care Team (Late st Contact Info) Description 12/16/2013 Orders Only [facility] Family Medicine [address] [place] [address] ProviderKarla MD [address] [place] [address] Social History Tobacco Use Types Packs/Day Years Used Date Smoking Tobacco: Never Alcohol Use Standard Drinks/Week Comments No 0 (1 standard drink = 0.6 oz pur e alcohol) Comments No Sex and Gender Information Value Date Recorded Sex Assigned at Not on file Legal Sex Female 4:06 PM EDT Gender Identity Not on file Sexual Orientation Not on file documented as of this encounter Plan of Treatment Not on file documented as of this encounter Procedures Procedure Name Priority Date/Time Associated Diagnosis Comments CC PRIOR PELVIS 12/16/2013 1:57 PM EDT documented in this encounter Results * CC PRIOR PELVIS (12/16/2013 1:57 PM EDT) Anatomical Region Laterality Modality Pelvis Radiographic Shereen ging 12/16/2013 1:57 PM EDT Narrative 01/21/2016 5:45 PM EDT [address] [address] ORDERING PROVIDER: Victor M Barry, PATIENT NAME: Karuna Dumont MR: [id number] : 1980 EXAMINATION: US PELVIC DATE OF EXAM: Dec 16, 2013 01:57:00 PM INDICATION: Pelvic pain COMPARISON: None. DISCUSSION: Transabdominal and endovaginal examinations were performed. The endometrial thickness is 4 mm. Echogenic structure consistent with IUD is seen in the lower uterine segment echoes extended to the endocervical region. Follicular cysts right ovary. No free fluid. The pelvic mass. Follicular cysts left ovary. IMPRESSION: Ovarian follicles. Nabothian cyst. IUD appears to be in the lower uterine segment correlate with desired clinical position. Professional Interpretations by RADIOLOGY Electronically signed by: Tristen oDe Gregg R. Procedure Note Provider, MD Karla - 01/21/[address] [address] ORDERING PROVIDER: Victor M Barry, PATIENT NAME: Karuna Dumont MR: [id number] : 1980 EXAMINATION: US PELVIC DATE OF EXAM: Dec 16, 2013 01:57:00 PM INDICATION: Pelvic pain COMPARISON: None. DISCUSSION: Transabdominal and endovaginal examinations were performed. The endometrial thickness is 4 mm. Echogenic structure consistent with IUD is seen in the lower uterine segment echoes extended to the endocervical region. Follicular cysts right ovary. No free fluid. The pelvic mass. Follicular cysts left ovary. IMPRESSION: Ovarian follicles. Nabothian cyst. IUD appears to be in the lower uterine segment correlate with desired clinical position. Professional Interpretations by RADIOLOGY Electronically signed by: Tristen Doe Gregg R. Historical Provider MD [facility] Final Result documented in this encounter Visit Diagnoses Not on filedocumented in this encounter Care Teams Middle School Counselor Relationship Specialty Start Date End Date Royal Cabrera MD [address] [place] [address] PCP - General Family Medicine 12/12/13 04/02/18 Reyna Alves NP [address] [place] [address] PCP - PC Team Nurse Practitioner 08/31/17 04/02/18 Miller Mccormick MD [address] [place] [address] Manual Lathe Machinist Obstetrics and Gynecology 12/19/13 documented as of this encounter
--- OUTSIDE RECORDS SUMMARY | 2024-11-28 09:54 | XMS_ITS | Encounter Summary ---
Author Organization [facility] tem Address [id number] [address] [place] [address] Care Team Providers Care Stamp Machine Servicer Name Role Phone Radha Sanchez MD Primary Care Provider [phone] Reason for Visit * Reason Onset Date Comments GENETICS 05/01/2024 CLERICAL Encounter Details Date Type Department Care Team (Late st Contact Info) Description 05/01/2024 Telephone [facility] -GENETICS [address] [place] [phone] [facility] [address] [place] [address] GENETICS (CLERICAL) Social History Tobacco Use Types Packs/Day Years Used Date Smoking Tobacco: Never Smokeless Tobacco: Never Alcohol Use Standard Drinks/Week Comments No 0 (1 standard drink = 0.6 oz pur e alcohol) [facility] Utilities Answer Date Recorded In the past 12 months has [employer], gas, oil, or water [employer] threatened to shut off services in your home? No 01/26/2024 PHQ-2 Answer Date Recorded Total Score 0 12/01/2021 PRAPARE - Transportation Answer Date Re corded In the past 12 months, has l ack of transportation kept you from medical appointments or from getting medications? No 01/02 In the past 12 months, has l ack of transportation kept you from meetings, work, or from getting things needed for daily living? No 01/26/2024 Housing Instability Answer Date Recorde d Are you worried or concerned that in the next two months you may not have stable housing that you own, rent or stay in as a part of a household? No 01/26/2024 Childcare Answer Date Recorded Childcare Unknown 09/12/2018 Employment Answer Date Recorded Employment Unknown 09/12/2018 Hunger Screening Answer Date Recorded Within the past 12 months we worried whether our food would run out before we got money to buy more. Never True 01/26/2024 Within the past 12 months th e food we bought just didn't last and we didn't have money to get more. Never True 01/26/2024 Purpose - Life Answer Date Recorded Purpose and direction in life Unknown Comments No Sex and Gender Information Value Date Recorded Sex Assigned at Not on file Legal Sex Female 12:08 PM EDT Gender Identity Not on file Sexual Orientation Not on file documented as of this encounter Miscellaneous Notes * Telephone Encounter - HELEN Mahoney - 05/01/2024 3:20 PM EST Called to schedule genetics visits. Reviewed self-pay rates. Patient has pending breast bx and would like a c/b in a month. jabier * Telephone Encounter - Alayna Perdomo - 05/01/2024 3:20 PM EST LVM on 07/23/2024 at 1:54 PM asking patient to return call to schedule genetics appointment. X2, self pay, sj documented in this encounter Plan of Treatment Not on file documented as of this encounter Goals Goal Patient Goal Type Associated Problems Recent Progress Patient-Stated? Author have better pain control General Yes Azeb Dimas, RN Note: Evaluation of progress towards goal: johns removal; pain management documented as of this encounter Visit Diagnoses Not on filedocumented in this encounter Additional Health Concerns Assessment Noted Time PHQ-9 Depression Total Score: 0 12/02/19 12:00 PM EDT A Body Mass Index follow-up plan has been documented for the patient 09/03/2021 4:19 PM EDT documented as of this encounter Care Teams Stamp Machine Servicer Relationship Specialty Start Date End Date Radha Snachez MD [address] [place] [address] PCP - General 03/13/23 documented as of this encounter
--- OUTSIDE RECORDS SUMMARY | 2024-11-28 09:54 | XMS_ITS | Clinical Summary ---
Author Organization [facility] Address [address] [place] [address] Care Team Providers Care Hydrography Teacher Name Role Phone Unavailable Primary Care Provider Unavailabl e Allergies Active Allergy Reactions Criticality Noted Date Comments Topiramate Swelling Low 12/19/2013 Medications levonorgestrel IUD (MIRENA) 20 mcg/24 hour (5 years) IUD 1 each by Intrauterine route once. Inserted 05/2010 Active Active Problems Problem Noted Date Diagnosed Date Polycystic ovarian syndrome 10/11/2013 Obesity 10/11/2013 Irritable bowel syndrome 10/11/2013 Hirsutism 10/11/2013 Migraines 10/11/2013 Myalgia and myositis 02/06/2013 Resolved Problems Problem Noted Date Diagnosed Date Resolved Date Polycystic ovaries 02/06/2013 4 Migraine 10/19/2005 12/19/2013 Family History Medical History Relation Comments Depression Father Relation Status Comments Father Social History Tobacco Use Types Packs/Day Years Used Date Smoking Tobacco: Never Alcohol Use Standard Drinks/Week Comments No 0 (1 standard drink = 0.6 oz pur e alcohol) Comments No Sex and Gender Information Value Date Recorded Sex Assigned at Not on file Legal Sex Female 4:06 PM EDT Gender Identity Not on file Sexual Orientation Not on file Last Filed Vital Signs Vital Sign Reading Time Taken Comments Blood Pressure 122/70 06/04/2014 11:12 AM EST Pulse 88 01/29/2014 2:56 PM EDT Temperature 37.7 C (99.9 F) 06/04/2014 11:12 AM EST Respiratory Rate - - Oxygen Saturation - - Inhaled Oxygen Concentration - - Weight 128.3 kg (282 lb 12.8 oz) 2014 11:12 AM EST Height 165.1 cm (5' 5 ) 06/04/2014 11:1 2 AM EST Body Mass Index 47.06 06/04/2014 11:12 AM EST Plan of Treatment Health Maintenance Due Date Last Done Comments Mammogram 1980 Hepatitis B Vaccines (1 of 3 - 19+ 3-dose series) 2001 Tigyudz-Pzqlkxiion-Eexhohoxj Vaccines (1 - Tdap) 2001 Pap Smear 10/11/2016 10/11/2013, 07/29/2008 Cervical Cancer Screening 10/11/2018 Pap + HPV coTesting 10/11/2018 10/11/2013 Influenza Vaccine(s) 2023- 25 (#1) 2025 Shingles Vaccine (Non-Medicare; Age 50+ or All Ages Risk Series) (1 of 2) 2032 RSV for patients an d patients 60yrs or older (1 - 1-dose 75+ series) 2057 Hib Vaccines Aged Out No longer eligi ble based on patient's age to complete this topic Meningococcal (MCV4) Vaccines Aged Out No longer eligible based on patient's age to complete this topic Pneumococcal Vaccine (Pediatric Routine or All Ages Risk Series) Aged Out No longer eligible b ased on patient's age to complete this topic Procedures Procedure Name Priority Date/Time Associated Diagnosis Comments [facility] COTESTING: PAP + HPV POOL AND 16/18 GENOTYPING FOR WOMEN > OR = 30 YRS OLD Routine 10/11/2013 12:00 AM EDT Well woman exam with routine gynecological exam Cervical cancer screening from Last 3 Months or Most Recently Relevant to Health Maintenance Results * [facility] PAP + HPV High Risk Pool and 16/18 Genotyping ([id number]) (10/11/2013 12:00 AM EDT) [facility] Papsmear SEE BELOW [facility] [employer] [facility] [employer] Comment: [id number] Source: Cervical/Vaginal/Endocervical Testing/Results: Sent for HPV High Risk Pool and Brittani 16/18 Testing Clinical History: LMP: 09/05/13. IUD. Test/Results: Negative for intraepithelial Lesions or Malignancy Electronically Signed By: HARRY RAMIREZ (ASCP) Comments: This specimen was screened by an FDA approved automated imaging system along with an additional manual rescreening by a remote sensing engineer and/or pathologist. Adequacy: Specimen is adequately prepared and documented. No endocervical cells present [facility] DNA (High/Low risk) Genotyping SEE BELOW [employer] Comment: [id number] Results: Specimen: Thin Prep Results: HPV 16: NEGATIVE HPV 18: NEGATIVE Other high risk HPV genotype pool: NEGATIVE Test Indication: To aid in the diagnosis of sexually transmitted HPV infections with HPV types 16 and 18 and a pool of other high risk HPV genotypes. The pool of high risk HPV genotypes include: HPV 31,33,35,39,45,51,52,56,58,59,66, and 68. HPV 16 and 18 are the most prevalent types in both squamous cell carcinoma and adenocarcinoma. Knowledge of HPV 16 and 18 status can be used to further triage patients and assist with additional patient management and follow-up decisions. Explanation: These results should be interpreted within the context of all relevant clinical and laboratory findings in this patient. Test Methodology: Genomic DNA was extracted by standard methods. Probes of high risk HPV 16, 18 and twelve other types are used for detection of HPV with the Skylra Farideh 4800 HPV molecular assay. This test is performed at [facility], [address] [place] [address] [place] [address]. This test was developed and its performance characteristics determined by [facility] as a self-validated assay for SurePath and Thin Prep pap specimens. It is approved by the U.S. Food and Drug Administration for ThinPrep. This test has not been approved by the FDA or validated by [facility] for anal paps or urethra swabs. Electronically Signed By: FREEMAN Other 10/11/2013 10/11/2013 us Mayur Mason NP PATHOLOGY/CYTOLOGY ORDERABLE S Final Result [facility] [address] [place] [id number] from Last 3 Months or Most Recently Relevant to Health Maintenance [place] [address] PPO
--- OUTSIDE RECORDS SUMMARY | 2024-11-28 09:54 | XMS_ITS | Encounter Summary ---
Author Organization [facility] Address [address] [place] [address] Care Team Providers Care Tire Trimmer Hand Name Role Phone Royal Cabrera MD Primary Care Provider [phone] Miller Mccormick MD Unavailable Unavailable Reyna Alves TELEPHONE QUOTATION CLERK Unavailable Encounter Details Date Type Department Care Team (Late st Contact Info) Description 12/16/2013 Orders Only [facility] Family Medicine [address] [place] [address] ProviderKarla MD [address] [place] [address] Social History Tobacco Use Types [...] Priority Date/Time Associated Diagnosis Comments CC PRIOR ABDOMEN/PELVIS 12/16/2013 3:25 PM EDT documented in this encounter Results * CC PRIOR ABDOMEN/PELVIS (12/16/2013 3:25 PM EDT) Anatomical Region Laterality Modality Abdomen Radiographic Shereen ging 12/16/2013 3:25 PM EDT Narrative 01/21/2016 5:45 PM EDT [address] [address] ORDERING PROVIDER: Victor M Barry, PATIENT NAME: Karuna Dumont MR: [id number] : 1980 EXAMINATION: CT IVP DATE OF EXAM: Dec 16, 2013 03:25:00 PM INDICATION: Lower abdominal pain COMPARISON: None. CONTRAST: None. DISCUSSION: Noncontrasted axial images of the abdomen and pelvis were obtained protocoled for the detection of renal stones. Cholecystectomy. Unremarkable spleen pancreas adrenals. No focal liver lesions. Right kidney appears normal. Left kidney normal. Aorta unremarkable. No periaortic adenopathy. IUD present. IUD is in the lower uterine segment and endocervical canal. No pelvic free fluid. Adnexa unremarkable. The caudal portion of the IUD does not appear to be in the midline and is deviated to the right side of the cervix. This would raise the possibility of it not being within the canal. No bowel obstruction inflammation seen. History of appendectomy. IMPRESSION: No obstructive uropathy. Cholecystectomy, appendectomy. Asymmetrically located IUD in lower uterine segment. Professional Interpretations by RADIOLOGY Electronically signed by: Tristen Doe Gregg R. Procedure Note Provider, MD Karla - 01/21/[address] [address] ORDERING PROVIDER: Victor M Barry PATIENT NAME: Karuna Dumont MR: [id number] : 1980 EXAMINATION: CT IVP DATE OF EXAM: Dec 16, 2013 03:25:00 PM INDICATION: Lower abdominal pain COMPARISON: None. CONTRAST: None. DISCUSSION: Noncontrasted axial images of the abdomen and pelvis were obtained protocoled for the detection of renal stones. Cholecystectomy. Unremarkable spleen pancreas adrenals. No focal liver lesions. Right kidney appears normal. Left kidney normal. Aorta unremarkable. No periaortic adenopathy. IUD present. IUD is in the lower uterine segment and endocervical canal. No pelvic free fluid. Adnexa unremarkable. The caudal portion of the IUD does not appear to be in the midline and is deviated to the right side of the cervix. This would raise the possibility of it not being within the canal. No bowel obstruction inflammation seen. History of appendectomy. IMPRESSION: No obstructive uropathy. Cholecystectomy, appendectomy. Asymmetrically located IUD in lower uterine segment. Professional Interpretations by RADIOLOGY Electronically signed by: Brook, M.D., Sandor R. us Historical Provider MD [facility] Final Result documented in this encounter Visit Diagnoses Not on filedocumented in this encounter Care Teams Tire Trimmer Hand Relationship Specialty Start Date End Date Royal Cabrera MD [address] [place] [address] PCP - General Family Medicine 12/12/13 04/02/18 Reyna Alves NP [address] [place] [address] PCP - PC Team Nurse Practitioner 08/31/17 04/02/18 Miller Mccormick MD [address] [place] [address] Drilling And Production Superintendent Obstetrics and Gynecology 12/19/13 documented as of this encounter
--- OUTSIDE RECORDS SUMMARY | 2024-11-28 09:54 | XMS_ITS | Encounter Summary ---
Author Organization [email or web address] Address [address] [place] [address] Care Team Providers Care Senior Vice President And Chief Information Officer Name Role Phone Royal Cabrera MD Primary Care Provider [phone] Miller Mccormick MD Unavailable Unavailable Reyna Alves NP Unavailable Reason for Visit * Reason Comments Medication Refill Encounter Details Date Type Department Care Team (Late st Contact Info) Description 03/06/2014 Refill [facility] - Family Medicine [address] [address] Royal Cabrera MD [address] [place] [address] [phone] Medication Refill Social History Tobacco Use Types Packs/Day Years [...] on file documented as of this encounter Visit Diagnoses Not on filedocumented in this encounter Care Teams Senior Vice President And Chief Information Officer Relationship Specialty Start Date End Date Royal Cabrera MD [address] [place] [address] PCP - General Family Medicine 12/12/13 04/02/18 Reyna Alves NP [address] [place] [address] [phone] PCP - PC Team Nurse Practitioner 08/31/17 04/02/18 Miller Mccormick MD [address] [place] [address] Production Trainer Obstetrics and Gynecology 12/19/13 documented as of this encounter
--- OUTSIDE RECORDS SUMMARY | 2024-11-28 09:54 | XMS_ITS | Clinical Summary ---
Author Organization [facility] Address [address] [facility], [address] [place] [address] Care Team Providers Care Rail Walker Name Role Phone Radha Sanchez MD Primary Care Provider [phone] Allergies No known active allergies Medications tiZANidine (ZANAFLEX) 2 MG tablet Take 2 tablets by mouth nightly as needed (muscle spasms) 10 tablet 2 Active Additional Information Patient not taking.Reported on 10/11/2022 Active Problems Patient Care Coordination No te Formatting of this note migh t be different from the original. EDC in book = 03/08/17 [facility] risk assesment form = NA testing = Declined History C/S ? = NA Gender = Circ = Ped = Breast or bottle = Breast Epidural/natural = RH factor = O Positive Rhogam? = Negative Flu shot = Declined TDAP (27-36 wks)= GBS = Card - Problem Noted Date Diagnosed Date History of multiple miscarriages Family History Medical History Relation Name Comments Cancer Maternal Grandfather Stomach Migraines Maternal Grandmother Thyroid Disease Maternal Grandmother Thro id removed pt does not know why Migraines Mother Relation Name Status Comments Brother 1 Alive Brother 2 Alive Father Alive Maternal Grandfather Maternal Grandmother Mother Alive Paternal Grandfather not in contact Paternal Grandmother Alive not in contact Sister 1 Alive Sister 2 Alive Social History Tobacco Use Types Packs/Day Years Used Date Smoking Tobacco: Passive Smo ke Exposure - Never Smoker Smokeless Tobacco: Never Tobacco Cessation:Counseling Given: Yes Alcohol Use Standard Drinks/Week Comments No 0 (1 standard drink = 0.6 oz pur e alcohol) rarely Comments No Sex and Gender Information Value Date Recorded Sex Assigned at Not on file Legal Sex Female 1:14 PM EST Gender Identity Not on file Sexual Orientation Not on file Last Filed Vital Signs Vital Sign Reading Time Taken Comments Blood Pressure 160/108 10/11/2022 6:45 PM EDT Pulse 87 10/11/2022 6:45 PM EDT Temperature 37.2 C (99 F) 10/11/2022 6:45 PM EDT Respiratory Rate 16 10/11/2022 6:45 PM EDT Oxygen Saturation 98% 10/11/2022 6:45 PM EDT Inhaled Oxygen Concentration - - Weight 119.7 kg (264 lb) 10/11/2022 6:45 PM EDT Height 165.1 cm (5' 5 ) 10/11/2022 6:45 PM EDT Body Mass Index 43.93 10/11/2022 6:45 PM EDT Plan of Treatment Health Maintenance Due Date Last Done Comments Depression Screen 1994 Varicella vaccine (1 of 2 - 13+ 2-dose series) 12/01/1995 Hepatitis C screen 2000 DTaP/Tdap/Td vaccine (1 - Tdap) 2001 Hepatitis B vaccine (1 of 3 - 19+ 3-dose series) 2001 Pap smear 12/01/2003 Cervical cancer screen 2012 HPV (without or with Pap) 2012 Breast cancer screen 2022 Lipids 2022 COVID-19 Vaccine (2023-2 5 season) 2023 Flu vaccine (#1) 11/01/2024 Diabetes screen Discontinued 08/04/2016, 06/15/2015 HIV screen Completed 08/04/2016, 07/14/2015 (Postponed) HPV vaccine (No Doses Required) Completed Hepatitis A vaccine Aged Out No longe r eligible based on patient's age to complete this topic Hib vaccine Aged Out No longer eligi ble based on patient's age to complete this topic Meningococcal (ACWY) vaccine Aged Out No longer eligible based on patient's age to complete this topic Meningococcal B vaccine Aged Out No l onger eligible based on patient's age to complete this topic Pneumococcal 0-49 years Vaccine Aged Out No longer eligible based on patient's age to complete this topic Polio vaccine Aged Out No longer elig ible based on patient's age to complete this topic Procedures Procedure Name Priority Date/Time Associated Diagnosis Comments HIV SCREEN Routine 08/04/2016 9:00 AM EDT HEMOGLOBIN A1C Routine 08/04/2016 9:00 AM EDT from Last 3 Months or Most Recently Relevant to Health Maintenance Results * HIV Screen (08/04/2016 9:00 AM EDT) Pathologist [facility] HIV Ag/Ab NONREACTIVE NR 08/04/2016 10:56 PM EDT [facility] Comment: No laboratory evidence of HIV infection. If acute HIV infection is suspected, consider testing for HIV-1 RNA. This is an FDA approved immunoassay that detects HIV-1 and HIV-2 antibodies and HIV-1 p24 antigen to screen for infection with HIV-1 or HIV-2. Performed at [address] [id number] ([phone] 08/04/2016 9:00 AM EDT 08/04/2016 1:12 PM EDT Shu Alves LEAD PONY RIDER - CNM IMMUNOLOGY ORDERABLES Final Result [address] [address], [facility] [phone] [facility] * Hemoglobin A1C (08/04/2016 9:00 AM EDT) Hemoglobin A1C 5.6 4.8 - 5.9 % 08/04/2016 2:07 PM EDT [facility] Estimated Avg Glucose 114 mg/dL 08/04/2016 2:07 PM EDT [facility] Comment: The ADA and AACC recommend providing the estimated average glucose result to permit better patient understanding of their HBA1c result. Performed at [address] [place] [address] ([phone] 08/04/2016 9:00 AM EDT 08/04/2016 1:12 PM EDT Shu E Long LEAD PONY RIDER - CNM CHEMISTRY ORDERABLES Final Result [facility] [address] [place] [address], [facility] [phone] [facility] from Last 3 Months or Most Recently Relevant to Health Maintenance Insurance [facility] Care Teams Rail Walker Relationship Specialty Start Date End Date Radha Sanchez MD PCP - General Family Medicine 03/08/16
--- OUTSIDE RECORDS SUMMARY | 2024-11-28 09:55 | XMS_ITS | Encounter Summary ---
Author Organization [facility] Address [address] [place] [address] Care Team Providers Care Roller Mechanic Name Role Phone Radha Sanchez MD Primary Care Provider [phone] Encounter Details Date Type Department Care Team (Late st Contact Info) Description 07/25/2023 Abstract [facility] [address] [email or web address] [address] Lydia Keenan LPN [address] [facility] [place] [address] [place] [address] Social History Tobacco Use Types Packs/Day Years Used Date Smoking Tobacco: Never Smokeless Tobacco: Never Alcohol Use Standard Drinks/Week Comments Not Currently 0 (1 standard drink = 0.6 oz pure alcohol) Alcohol: 1 or 2 drinks on typical day/monthly or less. Caffeine: 1-2 cups/day tea Comments No Sex and Gender Information Value Date Recorded Sex Assigned at Female 09/21/2022 8:59 AM EDT Legal Sex Female 7:26 PM EDT Gender Identity Female 09/21/2022 8:59 AM EDT Sexual Orientation Straight 09/21/2022 8: 59 AM EDT documented as of this encounter Plan of Treatment Upcoming Encounters Date Type Department Care Team (Late st Contact Info) Description 01/29/2025 9:00 AM EDT Office Visit [facility] [address] [place] [phone] Georgi Carreon DPM [address] [place], [place] [phone] 07/29/2025 3:00 PM EDT Office Visit [facility] [address] [facility] [place] [address] Sanjeev Lopez DO [address] [facility] [place] [address] documented as of this encounter Visit Diagnoses Not on filedocumented in this encounter Care Teams Roller Mechanic Relationship Specialty Start Date End Date Radha Sanchez MD [address] [facility] [place] [address] PCP - General Family Medicine 12/12/22 documented as of this encounter
--- OUTSIDE RECORDS SUMMARY | 2024-11-28 09:55 | XMS_ITS | Encounter Summary ---
Author Organization [facility] Address [id number] [place] [address] Care Team Providers Care Social Science Analyst Name Role Phone Radha Sanchez MD Primary Care Provider [phone] Encounter Details Date Type Department Care Team (Late st Contact Info) Description 09/27/2021 Orders Only [facility] [address] [place] [phone] Willa Stevens Acute bilateral low back pain with right-sided sciatica; DDD (degenerative disc disease), lumbar; Lumbar radiculopathy, chronic; Heaviness of upper extremity; Heavy sensation of lower extremity Social History Tobacco Use Types Packs/Day Years Used Date Smoking Tobacco: Never Smokeless Tobacco: Never Alcohol Use Standard Drinks/Week Comments No 0 (1 standard drink = 0.6 oz pur e alcohol) Childcare Answer Date Recorded Childcare Unknown 09/12/2018 Employment Answer Date Recorded Employment Unknown 09/12/2018 Purpose - Life Answer Date Recorded Purpose and direction in life Unknown Comments No Sex and Gender Information Value Date Recorded Sex Assigned at Not on file Legal Sex Female 12:08 PM EDT Gender Identity Not on file Sexual Orientation Not on file COVID-19 Exposure Response Date Recorded In the last month, have you been in contact with someone who was confirmed or suspected to have Coronavirus / COVID-19? No / Unsure 09/17/2021 9:16 AM EDT documented as of this encounter Plan of Treatment Not on file documented as of this encounter Procedures Procedure Name Priority Date/Time Associated Diagnosis Comments EMG WITH NCV Routine 09/27/2021 10:00 AM EDT Acute bilateral low back pain with right-sided sciatica DDD (degenerative disc disease), lumbar Lumbar radiculopathy, chronic Heaviness of upper extremity Heavy sensation of lower extremity documented in this encounter Results * EMG (09/27/2021 10:00 AM EDT) Lisette Murillo HANDLING TECH-SURVEY ANALYST NEUROLOGY ORDERABLES Ed ited Result - Final documented in this encounter Visit Diagnoses Diagnosis Acute bilateral low back pain with right-sided sciatica DDD (degenerative disc disease), lumbar Degeneration of lumbar or lumbosacral intervertebral disc Lumbar radiculopathy, chronic Heaviness of upper extremity Heavy sensation of lower extremity documented in this encounter Additional Health Concerns Assessment Noted Time A Body Mass Index follow-up plan has been documented for the patient 09/03/2021 4:19 PM EDT documented as of this encounter Care Teams Social Science Analyst Relationship Specialty Start Date End Date Radha Sanchez MD [address] [place] [address] PCP - General 03/13/23 documented as of this encounter
--- OUTSIDE RECORDS SUMMARY | 2024-11-28 09:55 | XMS_ITS | Encounter Summary ---
Author Organization [facility] Address [address] [place] [address] Care Team Providers Care Analyst Microbiology Lab Name Role Phone Radha Sanchez MD Primary Care Provider [phone] Encounter Details Date Type Department Care Team (Late st Contact Info) Description 05/23/2023 Clinisync Result Encounter [facility] External Department Unsolicited Sanjeev Lopez, DO [address] [place] [address] [place], [place] [phone] Social History Tobacco Use Types Packs/Day Years [...] Description 01/29/2025 9:00 AM EDT Office Visit [facility] [address] [place] [phone] Georgi Carreon, DPMiles [address] [place], [place] [phone] 07/29/2025 3:00 PM EDT Office Visit [facility] [address] [place] [phone] Sanjeev Lopez DO [address] [facility] [place] [address] documented as of this encounter Procedures Procedure Name Priority Date/Time Associated Diagnosis Comments MM POST BIOPSY LT 05/23/2023 2:3 8 PM EST documented in this encounter Results * MM POST BIOPSY LT (05/23/2023 2:38 PM EST) Anatomical Region Laterality Modality Other 05/23/2023 2:38 PM EST Narrative 05/23/2023 2:39 PM EST [address] [address] Mammography Report Signed Patient: CHAR DUMONT MR#: [id number] : 1980 Acct:[id number] Age/Sex: 42 / F ADM Date: 05/23/23 Loc: MAMMO Attending Dr: Sanjeev Lopez D.O. Ordering Physician: Sanjeev Lopez D.O. Results: Date of Service: 05/23/23 Follow Up: Procedure(s): MM post biopsy LT Accession Number(s): [id number] cc: Radha Sanchez M.D.; Sanjeev Lopez D.O. Patient Name: CHAR DUMONT MR#: [id number] : 1980 Exam Date: 05/23/2023 Ordering Doctor: DR Sanjeev Lopez . RADIOLOGY REPORT PROCEDURE: MM POST BIOPSY LT COMPARISON: MM STEREOTACTIC LOC LT, 05/23/2023. MM DIAGNOSTIC MAMMO UNILAT LT, 05/10/2023. MM TOMOSYNTHESIS SCREENING BI, 04/28/2023. MG MAMM DIAGNOSTIC 3D RAMA CAD, 04/29/2022. INDICATIONS: density BREAST COMPOSITION: FINDINGS: BIOPSY MARKER: A metallic marker has been placed in the targeted location within the lower-inner quadrant of the left breast. BREAST FINDINGS: Expected post biopsy findings. RECOMMENDATIONS: Dictated by: Tee Peterson M.D. on 05/23/2023 at 14:37 Approved by: Tee Peterson M.D. on 05/23/2023 at 14:38 Dictated By: Tee Peterson M.D. Signed By: 05/23/23 1439 DD/ TD/TT: Dial Buffer: Procedure Note Radiology, Radiologist, MD - 05/23/2023 [place] [address] Mammography Report Signed Patient: CHAR DUMONT DMR#: [id number] : 1980Acct:[id number] Age/Sex: 42 / FADM Date: 05/23/23 Loc: MAMMO Attending Dr: Sanjeev Lopez D.O. Ordering Physician: Sanjeev Lopez D.O.Results: Date of Service: 05/23/23Follow Up: Procedure(s): MM post biopsy LT Accession Number(s): [id number] cc: Radha Sanchez M.D.; Sanjeev Lopez D.O. Patient Name: CHAR DUMONT MR#: [id number] : 1980 Exam Date: 05/23/2023 Ordering Doctor: DR Sanjeev Lopez . RADIOLOGY REPORT PROCEDURE: MM POST BIOPSY LT COMPARISON: MM STEREOTACTIC LOC LT, 05/23/2023. MM DIAGNOSTIC MAMMOUNILAT LT, 05/10/2023. MM TOMOSYNTHESIS SCREENING BI, 04/28/2023. MG MAMMDIAGNOSTIC 3D RAMA CAD, 04/29/2022. INDICATIONS: density BREAST COMPOSITION: FINDINGS: BIOPSY MARKER: A metallic marker has been placed in the targetedlocation within the lower-inner quadrant of the left breast. BREAST FINDINGS: Expected post biopsy findings. RECOMMENDATIONS: Dictated by: Tee Peterson M.D. on 05/23/2023 at 14:37 Approved by: Tee Peterson M.D. on 05/23/2023 at 14:38 Dictated By: Tee Peterson M.D. Signed By:05/23/23 1439 DD/ 1438 TD/TT: Dial Buffer: us Sanjeev Jessica DO [facility] Final Result documented in this encounter Visit Diagnoses Not on filedocumented in this encounter Care Teams Analyst Microbiology Lab Relationship Specialty Start Date End Date Radha Sanchez MD [address] [place] [phone] PCP - General Family Medicine 12/12/22 documented as of this encounter
--- OUTSIDE RECORDS SUMMARY | 2024-11-28 09:55 | XMS_ITS | Encounter Summary ---
Author Organization [facility] Address [address] [facility] [place] [address] Care Team Providers Care Senior Web Engineer Name Role Phone Radha Sanchez MD Primary Care Provider [phone] Encounter Details Date Type Department Care Team (Late st Contact Info) Description 12/22/2023 Abstract [facility] [address] [facility] [place] [address] Sanjeev Lopez DO [address] [facility] [place] [address] Social History Tobacco Use Types Packs/Day Years [...] Office Visit [facility] [address] [place] [phone] Georgi Carreon DPM [address] [place] [address] 07/29/2025 3:00 PM EDT Office Visit [facility] [address] [facility] [place] [address] Sanjeev Lopez DO [address] [facility] [place] [address] documented as of this encounter Visit Diagnoses Not on filedocumented in this encounter Care Teams Senior Web Engineer Relationship Specialty Start Date End Date Radha Sanchez MD [address] [facility] [place] [address] PCP - General Family Medicine 12/12/22 documented as of this encounter
--- OUTSIDE RECORDS SUMMARY | 2024-11-28 09:55 | XMS_ITS | Encounter Summary ---
Author Organization [facility] Address [address] [place] [address] Care Team Providers Care Engraver Wood Name Role Phone Radha Sanchez MD Primary Care Provider [phone] Encounter Details Date Type Department Care Team (Late st Contact Info) Description 05/23/2023 Clinisync Result Encounter [facility] External Department Unsolicited Sanjeev Lopez, DO [address] [place] [address] [place], [place] [phone] Social History Tobacco Use Types Packs/Day Years [...] Office Visit [facility] [address] [place] [phone] Georgi Carreon, DPMiles [address] [place], [place] [phone] 07/29/2025 3:00 PM EDT Office Visit [facility] [address] [facility] [phone] Sanjeev Lopez DO [address] [facility] [place] [address] documented as of this encounter Procedures Procedure Name Priority Date/Time Associated Diagnosis Comments MM STEREOTACTIC LOC LT 05/23/2023 2:37 PM EST documented in this encounter Results * MM STEREOTACTIC LOC LT (05/23/2023 2:37 PM EST) Anatomical Region Laterality Modality Radiographic Shereen ging 05/23/2023 2:37 PM EST Narrative 05/23/2023 2:38 PM EST [address] [address] Mammography Report Signed Patient: CHAR DUMONT MR#: [id number] : 1980 Acct:[id number] Age/Sex: 42 / F ADM Date: 05/23/23 Loc: MAMMO Attending Dr: Sanjeev Lopez D.O. Ordering Physician: Sanjeev Lopez D.O. Results: Date of Service: 05/23/23 Follow Up: Procedure(s): MM stereotactic loc LT Accession Number(s): [id number] cc: Radha Sanchez M.D.; Sanjeev Lopez D.O. Patient Name: CHAR DUMONT MR#: [id number] : 1980 Exam Date: 05/23/2023 Ordering Doctor: DR Sanjeev Lopez . RADIOLOGY REPORT PROCEDURE: MM STEREOTACTIC LOC LT COMPARISON: MM DIAGNOSTIC MAMMO UNILAT LT, 05/10/2023. MM TOMOSYNTHESIS SCREENING BI, 04/28/2023. MG MAMM DIAGNOSTIC 3D RAMA CAD, 04/29/2022. INDICATIONS: density DESCRIPTION: Following informed consent, digital stereotactic mammographic views were obtained to localize the lesion. Multiple vacuum-assisted core biopsies were obtained. Specimen images were obtained to confirm proper sampling. The location of the biopsy was then marked as indicated below. FINDINGS: RECOMMENDATIONS: SPECIMEN #, LOCATION: 5 core samples, lower-inner quadrant left breast, small mild asymmetric opacity. SPECIMEN IMAGE: None obtained (no calcifications). BIOPSY NEEDLE: 10 gauge Revolve(r) vacuum core biopsy needle. MARKER(S) PLACED: A single metallic marker was placed in the appropriate targeted location. MEDICATION: Buffered 1% lidocaine superficial;1% lidocaine with epinephrine deep. COMPLICATIONS: None. PATHOLOGY / LAB: Pending. CONCLUSION: 1. Technically successful biopsy of the breast lesion. 2. Pathology results are pending. An addendum will be added when pathology results are final. Dictated by: Tee Peterson M.D. on 05/23/2023 at 14:34 Approved by: Tee Peterson M.D. on 05/23/2023 at 14:37 Dictated By: Tee Peterson M.D. Signed By: 05/23/23 1438 DD/ 1437 TD/TT: Director Of The Biophysics Facility: Procedure Note Radiology, Radiologist, MD - 05/24/2023 [place] [address] Mammography Report Signed Patient: CHAR DUMONT DMR#: [id number] : 1980Acct:[id number] Age/Sex: 42 / FADM Date: 05/23/23 Loc: MAMMO Attending Dr: Sanjeev Lopez D.O. Ordering Physician: Sanjeev Lopez D.O.Results: Date of Service: 05/23/23Follow Up: Procedure(s): MM stereotactic loc LT Accession Number(s): [id number] cc: Radha Sanchez M.D.; Sanjeev Lopez D.O. Patient Name: CHAR DUMONT MR#: [id number] : 1980 Exam Date: 05/23/2023 Ordering Doctor: DR Sanjeev Lopez . RADIOLOGY REPORT PROCEDURE: MM STEREOTACTIC LOC LT COMPARISON: MM DIAGNOSTIC MAMMO UNILAT LT, 05/10/2023. MMTOMOSYNTHESIS SCREENING BI, 04/28/2023. MG MAMM DIAGNOSTIC 3D RAMA CAD, 04/29/2022. INDICATIONS: density DESCRIPTION: Following informed consent, digital stereotactic mammographic views were obtained to localize the lesion. Multiple vacuum-assisted core biopsies were obtained. Specimen images were obtained to confirm proper sampling. The location of the biopsy was then marked as indicated below. FINDINGS: RECOMMENDATIONS: SPECIMEN #, LOCATION: 5 core samples, lower-inner quadrant leftbreast, small mild asymmetric opacity. SPECIMEN IMAGE: None obtained (no calcifications). BIOPSY NEEDLE: 10 gauge Revolve(r) vacuum core biopsy needle. MARKER(S) PLACED: A single metallic marker was placed in theappropriate targeted location. MEDICATION: Buffered 1% lidocaine superficial;1% lidocaine with epinephrine deep. COMPLICATIONS: None. PATHOLOGY / LAB: Pending. CONCLUSION: 1. Technically successful biopsy of the breast lesion. 2. Pathology results are pending. An addendum will be added whenpathology results are final. Dictated by: Tee Peterson M.D. on 05/23/2023 at 14:34 Approved by: Tee Peterson M.D. on 05/23/2023 at 14:37 Dictated By: Tee Peterson M.D. Signed By:05/23/23 1438 DD/ 1437 TD/TT: Director Of The Biophysics Facility: us Sanjeev Jessica DO IMG XR PROCEDURES Final Result documented in this encounter Visit Diagnoses Not on filedocumented in this encounter Care Teams Engraver Wood Relationship Specialty Start Date End Date Radha Sanchez MD [address] [place] [phone] PCP - General Family Medicine 12/12/22 documented as of this encounter
--- OUTSIDE RECORDS SUMMARY | 2024-11-28 09:55 | XMS_ITS | Encounter Summary ---
Author Organization [facility] Address [address] [facility] [place] [address] Care Team Providers Care Circulation Manager Name Role Phone Radha Sanchez MD Primary Care Provider [phone] Encounter Details Date Type Department Care Team (Late st Contact Info) Description 12/07/2023 Abstract [facility] [address] [facility] [place] [address] Sanjeev Lopez DO [address] [facility] [address] Social History Tobacco Use Types Packs/Day Years [...] Office Visit [facility] [address] [place] [phone] Georgi Carreon DPM [address] [place], [place] [phone] 07/29/2025 3:00 PM EDT Office Visit [facility] [address] [facility] [place] [address] Sanjeev Lopez DO [address] [facility] [address] documented as of this encounter Visit Diagnoses Not on filedocumented in this encounter Care Teams Circulation Manager Relationship Specialty Start Date End Date Radha Sanchez MD [address] [facility] [place] [address] PCP - General Family Medicine 12/12/22 documented as of this encounter
--- OUTSIDE RECORDS SUMMARY | 2024-11-28 09:55 | XMS_ITS | Encounter Summary ---
Author Organization [facility] Address [address] [place] [address] Care Team Providers Care Pediatric Ophthalmologist Name Role Phone Radha Sanchez MD Primary Care Provider [phone] Encounter Details Date Type Department Care Team (Late st Contact Info) Description 05/10/2023 Clinisync Result Encounter [facility] External Department Unsolicited Sanjeev Lopez, DO [address] [place] [address] [address] [place], [place] [id number] Social History Tobacco Use Types Packs/Day Years [...] Office Visit [facility] [address] [place] [phone] Georgi Carreon, DPMiles [address] [place], [place] [phone] 07/29/2025 3:00 PM EDT Office Visit [facility] [address] [place] [phone] Sanjeev Lopez, [address] [facility] [place] [address] documented as of this encounter Procedures Procedure Name Priority Date/Time Associated Diagnosis Comments MM DIAGNOSTIC MAMMO UNILAT LT 05/10/2023 8:42 AM EST [facility] SEROTONIN Routine 05/10/2023 7:48 AM EST [facility] THYROID ANTIBODIES Routine 05/10/2023 7:48 AM EST [facility] TESTOSTERONE FREE/TOT EQUILIB Routine 05/10/2023 7:48 AM EST METRO SEX BINDING HORMONE (SHBG), TESTOSTERONE, FREE AND BIOAVAILABLE Routine 05/10/2023 7:48 AM EST ALL T3 REVERSE Routine 05/10/2023 7:48 AM EST ALL PROGESTERONE Routine 05/10/2023 7:48 AM EST ALL ESTRONE(E1) Routine 05/10/2023 7:48 AM EST ALL DHEA SULFATE Routine 05/10/2023 7:48 AM EST documented in this encounter Results * MM DIAGNOSTIC MAMMO UNILAT LT (05/10/2023 8:42 AM EST) Anatomical Region Laterality Modality Other 05/10/2023 8:42 AM EST Narrative 05/15/2023 1:13 PM EST The [address] [address] Mammography Report Signed Patient: CHAR DUMONT MR#: [id number] : 1980 Acct:[id number] Age/Sex: 42 / F ADM Date: 05/10/23 Loc: MAMMO Attending Dr: Sanjeev Lopez D.O. Ordering Physician: Sanjeev Lopez D.O. Results: Date of Service: 05/10/23 Follow Up: Procedure(s): MM diagnostic mammo unilat LT Accession Number(s): [id number] cc: Radha Sanchez M.D.; Sanjeev Lopez D.O. Patient Name: CHAR DUMONT MR#: [id number] : 1980 Exam Date: 05/10/2023 Ordering Doctor: DR Sanjeev Lopez . RADIOLOGY REPORT PROCEDURE: MM DIAGNOSTIC MAMMO UNILAT LT, 05/10/2023, 08:01 US BREAST LT LIMITED, 05/10/2023, 08:16 COMPARISON: MG MAMM DIAGNOSTIC 3D RAMA CAD, 04/29/2022. MM TOMOSYNTHESIS SCREENING BI, 04/28/2023. INDICATIONS: Abnormality Of Left Breast On Screening Mammogram Calculator Name NCI Breast Cancer Risk Assessment Tool 5 Year Breast Cancer Risk 0.50% Lifetime Breast Cancer Risk 9.00% Personal Breast Cancer No Personal Ovarian Cancer No Treatments None Family Cancers Grandmother-maternal with stomach cancer at age 65. LOCATION: The [facility] BREAST COMPOSITION: Scattered areas fibroglandular density. FINDINGS: DIAGNOSTIC CATEGORY 4--SUSPICIOUS FOR MALIGNANCY. FINDING DOES NOT EXHIBIT CLASSIC FINDINGS OF BREAST CANCER: Spot compression images demonstrate a persistent density lower inner quadrant, mid breast measuring 1.1 x 0.7 cm. This lesion is not visualized by ultrasound. In light of the substantial change from the prior exam stereotactic breast biopsy was recommended to the patient RECOMMENDATIONS: STEREOTACTIC BREAST BIOPSY: LEFT BREAST PLEASE NOTE: A NORMAL MAMMOGRAM DOES NOT EXCLUDE THE POSSIBILITY OF BREAST CANCER. A CLINICALLY SUSPICIOUS PALPABLE LUMP SHOULD BE BIOPSIED. Dictated by: Mj Silva MD on 05/10/2023 at 08:33 Approved by: Mj Silva MD on 05/10/2023 at 08:42 Dictated By: Mj Silva M.D. Signed By: 05/15/23 1313 DD/ 0842 TD/TT: Fruit Or Nut Grower: Procedure Note Radiology, Radiologist, - 06/07/2023 [place] [address] Mammography Report Signed Patient: CHAR DUMONT DMR#: [id number] : 1980Acct:[id number] Age/Sex: 42 / FADM Date: 05/10/23 Loc: MAMMO Attending Dr: Sanjeev Lopez D.O. Ordering Physician: Sanjeev Lopez D.O.Results: Date of Service: 05/10/23Follow Up: Procedure(s): MM diagnostic mammo unilat LT Accession Number(s): [id number] cc: Radha Sanchez M.D.; Sanjeev Lopez D.O. Patient Name: CHAR DUMONT MR#: [id number] : 1980 Exam Date: 05/10/2023 Ordering Doctor: DR Sanjeev Lopez . RADIOLOGY REPORT PROCEDURE: MM DIAGNOSTIC MAMMO UNILAT LT, 05/10/2023, 08:01 US BREAST LT LIMITED, 05/10/2023, 08:16 COMPARISON: MG MAMM DIAGNOSTIC 3D RAMA CAD, 04/29/2022. MMTOMOSYNTHESIS SCREENING BI, 04/28/2023. INDICATIONS: Abnormality Of Left Breast On Screening Mammogram Calculator Name NCI Breast Cancer Risk Assessment Tool 5 Year Breast Cancer Risk 0.50% Lifetime Breast Cancer Risk 9.00% Personal Breast Cancer No Personal Ovarian Cancer No Treatments None Family Cancers Grandmother-maternal with stomach cancer at age 65. LOCATION: [facility] BREAST COMPOSITION: Scattered areas fibroglandular density. FINDINGS: DIAGNOSTIC CATEGORY 4--SUSPICIOUS FOR MALIGNANCY. FINDING DOES NOT EXHIBIT CLASSIC FINDINGS OF BREAST CANCER: Spot compression images demonstrate a persistent density lower innerquadrant, mid breast measuring 1.1 x 0.7 cm. This lesion is not visualized by ultrasound. In light of the substantial change from the prior exam stereotactic breast biopsy was recommended to the patient RECOMMENDATIONS: STEREOTACTIC BREAST BIOPSY: LEFT BREAST PLEASE NOTE: A NORMAL MAMMOGRAM DOES NOT EXCLUDE THE POSSIBILITY OFBREAST CANCER. A CLINICALLY SUSPICIOUS PALPABLE LUMP SHOULD BE BIOPSIED. Dictated by: Mj Silva MD on 05/10/2023 at 08:33 Approved by: Mj Silva MD on 05/10/2023 at 08:42 Dictated By: jM Silva M.D. Signed By:05/15/23 1313 DD/ 0842 TD/TT: Fruit Or Nut Grower: Sanjeev Jessica DO [facility] Final Result * [facility] TESTOSTERONE FREE/TOT EQUILIB (05/10/2023 7:48 AM EST) Pathologist [facility] TESTOSTERONE 22 8 - 60 ng/dL [facility] FREE TESTOSTERONE(DIRE CT) 0.6 0.0 - 4.2 pg/mL [facility] Comment: Performed at: [address] [id number] Typesetters Printer: Theron Roblero PhD, Phone: [phone] Performed at: [address] [id number] Typesetters Printer: Katelynn Macdonald MD, Phone: [phone] 05/10/2023 7:48 AM EST 05/10/2023 7:51 AM EST Narrative [facility] - 06/15/2023 1:47 PM EDT Sanjeev Jessica DO [facility] Final Result Performing Organization Address City/[facility]/ZIP Co de Phone Number [facility] * [facility] THYROID ANTIBODIES (05/10/2023 7:48 AM EST) [facility] THYROID PEROXIDASE (TPO) AB 11 0 - 34 IU/mL [facility] THYROGLOBULIN ANTIBODY <1.0 0.0 - 0.9 IU/mL [facility] Comment: Thyroglobulin Antibody measured by Sarah Elmore Methodology Performed at: [address] [id number] Typesetters Printer: Theron Roblero PhD, Phone: [phone] 05/10/2023 7:48 AM EST 05/10/2023 7:51 AM EST Narrative [facility] - 06/15/2023 1:47 PM EDT us Sanjeev Jessica DO [facility] Final Result Performing Organization Address City/[facility]/ZIP Co de Phone Number [facility] * [facility]H SEROTONIN (05/10/2023 7:48 AM EST) SEROTONIN, SERUM 105 31 - 207 ng/mL [facility] Comment: This test was developed and its performance characteristics determined by [facility]. It has not been cleared or approved by the Food and Drug Administration. Performed at: [address] [id number] Typesetters Printer: Katelynn Macdonald MD, Phone: [phone] 05/10/2023 7:48 AM EST 05/10/2023 7:51 AM EST Narrative [facility] - 06/15/2023 1:47 PM EDT [facility] Final Result Performing Organization Address [facility]/ZIP Co de Phone Number [facility] * METRO SEX BINDING HORMONE (SHBG), TESTOSTERONE, FREE AND BIOAVAILABLE (05/10/2023 7:48 AM EST) [facility] SEX HORM BINDING GLOB, SERUM 49.1 24.6 - 122.0 nmol/L [facility] Comment: Performed at: [address] [id number] Typesetters Printer: Theron Roblero PhD, Phone: [phone] 05/10/2023 7:48 AM EST 05/10/2023 7:51 AM EST Narrative [facility] - 06/15/2023 1:47 PM EDT Sanjeev Jessica DO [facility] Final Result Performing Organization Address City/[facility]/ZIP Co de Phone Number [facility] * ALL T3 REVERSE (05/10/2023 7:48 AM EST) [facility] REVERSE T3, SERUM 23.0 9.2 - 24.1 ng/dL [facility] Comment: This test was developed and its performance characteristics determined by [facility]. It has not been cleared or approved by the Food and Drug Administration. Performed at: [address] [id number] Typesetters Printer: Katelynn Macdonald MD, Phone: [phone] 05/10/2023 7:48 AM EST 05/10/2023 7:51 AM EST Narrative [facility] - 06/15/2023 1:47 PM EDT Sanjeev Jessica DO [facility] Final Result Performing Organization Address [facility]/ZIP Co de Phone Number [facility] * ALL ESTRONE(E1) (05/10/2023 7:48 AM EST) ESTRADIOL 98.9 . pg/mL [facility] Comment: Adult Female Range Follicular phase 12.5 - 166.0 Ovulation phase 85.8 - 498.0 Luteal phase 43.8 - 211.0 Postmenopausal <6.0 - 54.7 1st trimester 215.0 - >4300.0 Skylar ECLIA methodology 05/10/2023 7:48 AM EST 05/10/2023 7:51 AM EST Narrative [facility] - 06/15/2023 1:47 PM EDT Sanjeev Jessica DO [facility] Final Result Performing Organization Address [facility] Co de Phone Number [facility] * ALL PROGESTERONE (05/10/2023 7:48 AM EST) PROGESTERONE 0.1 . ng/mL [facility] Comment: Follicular phase 0.1 - 0.9 Luteal phase 1.8 - 23.9 Ovulation phase 0.1 - 12.0 First trimester 11.0 - 44.3 Second trimester 25.4 - 83.3 Third trimester 58.7 - 214.0 Postmenopausal 0.0 - 0.1 Performed at: [address] [id number] Typesetters Printer: Theron Roblero PhD, Phone: [phone] 05/10/2023 7:48 AM EST 05/10/2023 7:51 AM EST Narrative [facility] - 06/15/2023 1:47 PM EDT us Sanjeev Jessica DO [facility] Final Result [facility] TB * ALL DHEA SULFATE (05/10/2023 7:48 AM EST) DHEA-SULFATE 194.0 57.3 - 279.2 ug/dL [facility] 05/10/2023 7:48 AM EST 05/10/2023 7:51 AM EST Narrative [facility] - 06/15/2023 1:47 PM EDT Sanjeev Jessica DO [facility] Final Result Performing Organization Address City/[facility]/ZIP Co de Phone Number [facility] documented in this encounter Visit Diagnoses Not on filedocumented in this encounter Care Teams Pediatric Ophthalmologist Relationship Specialty [place] [address] [place] [phone] PCP - General Family Medicine 12/12/22 documented as of this encounter
--- OUTSIDE RECORDS SUMMARY | 2024-11-28 09:55 | XMS_ITS | Encounter Summary ---
Author Organization [facility] Address [address] [place] [address] Care Team Providers Care Inside Barrel Lathe Operator Name Role Phone Radha Sanchez MD Primary Care Provider [phone] Encounter Details Date Type Department Care Team (Late st Contact Info) Description 06/09/2023 Clinisync Result Encounter [facility] External Department Unsolicited Sanjeev Lopez, DO [address] [place] [address] [address] [place], [place] [phone] Social History Tobacco Use Types Packs/Day Years [...] Office Visit [facility] [address] [place] [phone] Georgi Carreon, DPMiles [address] [place], [place] [phone] 07/29/2025 3:00 PM EDT Office Visit [facility] [address] [place] [phone] Sanjeev Lopez DO [address] [place] [address] documented as of this encounter Procedures Procedure Name Priority Date/Time Associated Diagnosis Comments MM POST BIOPSY LT 06/09/2023 9:0 2 AM EST documented in this encounter Results * MM POST BIOPSY LT (06/09/2023 9:02 AM EST) Anatomical Region Laterality Modality Other 06/09/2023 9:02 AM EST Narrative 06/09/2023 9:03 AM EST [address] [address] Mammography Report Signed Patient: CHAR DUMONT MR#: [id number] : 1980 Acct:[id number] Age/Sex: 42 / F ADM Date: 05/23/23 Loc: MAMMO Attending Dr: Sanjeev Lopez D.O. Ordering Physician: Sanjeev Lopez D.O. Results: Date of Service: 05/23/23 Follow Up: Procedure(s): MM post biopsy LT Accession Number(s): [id number] cc: Radha Sanchez M.D.; Sanjeev Lopez D.O. Patient Name: CHAR DUMONT MR#: [id number] : 1980 Exam Date: 05/23/2023 Ordering Doctor: DR Sanjeev Lopez . This report includes an Addendum and supersedes previous reports for this exam. RADIOLOGY REPORT PROCEDURE: MM POST BIOPSY LT COMPARISON: MM STEREOTACTIC LOC LT, 05/23/2023. MM DIAGNOSTIC MAMMO UNILAT LT, 05/10/2023. MM TOMOSYNTHESIS SCREENING BI, 04/28/2023. MG MAMM DIAGNOSTIC 3D RAMA CAD, 04/29/2022. INDICATIONS: density BREAST COMPOSITION: Scattered areas fibroglandular density. FINDINGS: BIOPSY MARKER: A metallic marker has been placed in the targeted location within the lower-inner quadrant of the left breast. BREAST FINDINGS: Expected post biopsy findings. RECOMMENDATIONS: Dictated by: Tee Peterson M.D. on 05/23/2023 at 14:37 Approved by: Tee Peterson M.D. on 05/23/2023 at 14:38 ADDENDUM: FINDINGS: DIAGNOSTIC CATEGORY 3--PROBABLY BENIGN FINDING. THE FOLLOWING FINDING(S) HAS A HIGH PROBABILITY OF A BENIGN ETIOLOGY: RECOMMENDATIONS: SHORT TERM FOLLOW-UP DIAGNOSTIC MAMMOGRAM LEFT BREAST IN 6 MONTHS. Dictated by: Tee Peterson M.D. on 06/09/2023 at 09:01 Approved by: Tee Peterson M.D. on 06/09/2023 at 09:01 Dictated By: Tee Peterson M.D. Signed By: 06/09/23902 DD/ 1 TD/TT: Distribution Lineman: Procedure Note Radiology, Radiologist, MD - 06/09/2023 [place] [address] Mammography Report Signed Patient: CHAR DUMONT DMR#: [id number] : 1980Acct:[id number] Age/Sex: 42 / FADM Date: 05/23/23 Loc: MAMMO Attending Dr: Sanjeev Lopez D.O. Ordering Physician: Sanjeev Lopez D.O.Results: Date of Service: 05/23/23Follow Up: Procedure(s): MM post biopsy LT Accession Number(s): [id number] cc: Radha Sanchez M.D.; Sanjeev Lopez D.O. Patient Name: CHAR DUMONT MR#: [id number] : 1980 Exam Date: 05/23/2023 Ordering Doctor: DR Sanjeev Lopez . This report includes an Addendum and supersedes previous reports for this exam. RADIOLOGY REPORT PROCEDURE: MM POST BIOPSY LT COMPARISON: MM STEREOTACTIC LOC LT, 05/23/2023. MM DIAGNOSTIC MAMMOUNILAT LT, 05/10/2023. MM TOMOSYNTHESIS SCREENING BI, 04/28/2023. MG MAMMDIAGNOSTIC 3D RAMA CAD, 04/29/2022. INDICATIONS: density BREAST COMPOSITION: Scattered areas fibroglandular density. FINDINGS: BIOPSY MARKER: A metallic marker has been placed in the targetedlocation within the lower-inner quadrant of the left breast. BREAST FINDINGS: Expected post biopsy findings. RECOMMENDATIONS: Dictated by: Tee Peterson M.D. on 05/23/2023 at 14:37 Approved by: Tee Peterson M.D. on 05/23/2023 at 14:38 ADDENDUM: FINDINGS: DIAGNOSTIC CATEGORY 3--PROBABLY BENIGN FINDING. THE FOLLOWING FINDING(S)HAS A HIGH PROBABILITY OF A BENIGN ETIOLOGY: RECOMMENDATIONS: SHORT TERM FOLLOW-UP DIAGNOSTIC MAMMOGRAM LEFT BREAST IN 6 MONTHS. Dictated by: Tee Peterson M.D. on 06/09/2023 at 09:01 Approved by: Tee Peterson M.D. on 06/09/2023 at 09:01 Dictated By: Tee Peterson M.D. Signed By:06/09/23902 DD/ 1 TD/TT: Distribution Lineman: us Sanjeev Jessica DO [facility] Final Result documented in this encounter Visit Diagnoses Not on filedocumented in this encounter Care Teams Inside Barrel Lathe Operator Relationship Specialty [place] [address] [place] [phone] PCP - General Family Medicine 12/12/22 documented as of this encounter
--- OUTSIDE RECORDS SUMMARY | 2024-11-28 09:55 | XMS_ITS | Encounter Summary ---
Author Organization [employer] Address [id number] [address] [place] [address] Care Team Providers Care Automation Mechanic Name Role Phone Radha Sanchez MD Primary Care Provider [phone] Reason for Referral * Diagnostic Imaging (Routine) - Closed Specialty Diagnoses / Procedures Referred By Contac t Referred To Contact Radiology Diagnoses Demyelinating disease of the spinal cord ([facility]) Procedures MR brain with and without contrast Royal Boateng MD Phone: tel: fax: [address] [phone] Phone: tel: Referral ID Status Reason Start Date Expiration Date Visits Re quested Visits Authorized [id number] Closed 12/16/2021 01/30/2022 1 1 Encounter Details Date Type Department Care Team (Late st Contact Info) Description 12/09/2021 Orders Only [facility] [address] [facility] [address] [place] [address] Royal Boateng MD [address] [facility] [address] [place] [address] Demyelinating disease of the spinal cord ([facility]) Social History Tobacco Use Types Packs/Day Years Used Date Smoking Tobacco: Never Smokeless Tobacco: Never Alcohol Use Standard Drinks/Week Comments No 0 (1 standard drink = 0.6 oz pur e alcohol) PHQ-2 Answer Date Recorded Total Score 0 12/01/2021 Childcare Answer Date Recorded Childcare Unknown 09/12/2018 [...] have Coronavirus / COVID-19? No / Unsure 12/01/2021 12:43 PM EDT documented as of this encounter Plan of Treatment Not on file documented as of this encounter Results * MR brain with and without contrast (12/24/2021 10:38 AM EDT) Anatomical Region Laterality Modality Head, Head and Neck, Neuro Covera N/A Magnetic Resonance 12/24/2021 11:0 0 AM EDT Narrative 12/24/2021 11:08 AM EDT History:Neuropathy rt side since August, denies injury ? Demyelinating disease Multiplanar, multisequence MR imaging of the brain without and with 20 mL ProHance intravenous contrast. Additional sagittal plane FLAIR sequences for MS protocol performed. Comparison:None Findings: Diffusion-weighted images reveal no abnormal high signal focus of restricted diffusion to suggest acute or subacute ischemic event. FLAIR sequences in sagittal and axial planes demonstrate normal appearance of white matter tracts. Specifically, no MR evidence for demyelinating process or other leukoencephalopathy. The cerebellar tonsils are minimally low-lying extending approximately 2 to 3 mm inferior to the foramen magnum. They're not peglike and this finding is of questionable significance. No parenchymal hemorrhage, epidural or subdural hematoma. No masses, mass effect or midline shift. The cerebellopontine angles are clear. The visualized paranasal sinuses are well aerated. Postcontrast images demonstrate no pathologic contrast enhancement at any level. Impression:Essentially unremarkable. As above, the cerebellar tonsils are very minimally low-lying extending approximately 2 to 3 mm inferior to the foramen magnum without morphologic abnormalities. This may be a clinically insignificant incidental finding. No MR findings to suggest demyelinating disease. Finalized by Keenan Mesa MD on 12/24/2021 11:08 AM Procedure Note Keenan Mesa MD - 12/24/2021 History:Neuropathy rt side since August, denies injury ? Demyelinating disease Multiplanar, multisequence MR imaging of the brain without and with 20 mLProHance intravenous contrast. Additional sagittal plane FLAIR sequencesfor MS protocol performed. Comparison:None Findings: Diffusion-weighted images reveal no abnormal high signal focusof restricted diffusion to suggest acute or subacute ischemic event. FLAIR sequences in sagittal and axial planes demonstrate normal appearanceof white matter tracts. Specifically, no MR evidence for demyelinatingprocess or other leukoencephalopathy. The cerebellar tonsils are minimally low-lying extending approximately 2to 3 mm inferior to the foramen magnum. They're not peglike and thisfinding is of questionable significance. No parenchymal hemorrhage, epidural or subdural hematoma. No masses, mass effect or midline shift. The cerebellopontine angles are clear. The visualized paranasal sinuses are well aerated. Postcontrast images demonstrate no pathologic contrast enhancement at anylevel. Impression:Essentially unremarkable. As above, the cerebellar tonsils arevery minimally low-lying extending approximately 2 to 3 mm inferior to theforamen magnum without morphologic abnormalities. This may be aclinically insignificant incidental finding. No MR findings to suggest demyelinating disease. Finalized by Keenan Mesa MD on 12/24/2021 11:08 AM Royal Boateng MD IM MRI ORDERABLES Final Result documented in this encounter Visit Diagnoses Diagnosis Demyelinating disease of the spinal cord (CMS-HCC) Other demyelinating diseases of central nervous system Demyelinating disease of the spinal cord (CMS-HCC) Other demyelinating diseases of central nervous system documented in this encounter Additional Health Concerns Assessment Noted Time PHQ-9 Depression Total Score: 0 12/02/19 22 12:00 PM EDT A Body Mass Index follow-up plan has been documented for the patient 09/03/2021 4:19 PM EDT documented as of this encounter Care Teams Automation Mechanic Relationship Specialty Start Date End Date Radha Sanchez MD [address] [place] [address] PCP - General 03/13/23 documented as of this encounter
--- OUTSIDE RECORDS SUMMARY | 2024-11-28 09:55 | XMS_ITS | Encounter Summary ---
Author Organization [facility] Address [address] [place] [address] Care Team Providers Care Economics Analyst Name Role Phone Radha Sanchez MD Primary Care Provider [phone] Encounter Details Date Type Department Care Team (Late st Contact Info) Description 06/09/2023 Clinisync Result Encounter [facility] External Department Unsolicited Sanjeev Lopez, DO [address] [place] [address] [address] [place], [place] [id number] Social History Tobacco Use Types Packs/Day Years [...] Office Visit [facility] [address] [place] [phone] Georgi Carreon, DPMiles [address] [place], [place] [phone] 07/29/2025 3:00 PM EDT Office Visit [facility] [address] [facility] [place] [phone] Sanjeev Lopez DO [address] [facility] [place] [address] documented as of this encounter Procedures Procedure Name Priority Date/Time Associated Diagnosis Comments MM STEREOTACTIC LOC LT 06/09/2023 9:01 AM EST documented in this encounter Results * MM STEREOTACTIC LOC LT (06/09/2023 9:01 AM EST) Anatomical Region Laterality Modality Radiographic Shereen ging 06/09/2023 9:01 AM EST Narrative 06/09/2023 9:02 AM EST [address] [address] Mammography Report Signed Patient: CHAR DUMONT MR#: [id number] : 1980 Acct:[id number] Age/Sex: 42 / F ADM Date: 05/23/23 Loc: MAMMO Attending Dr: Sanjeev Lopez D.O. Ordering Physician: Sanjeev Lopez D.O. Results: Date of Service: 05/23/23 Follow Up: Procedure(s): MM stereotactic loc LT Accession Number(s): [id number] cc: Radha Sanchez M.D.; Sanjeev Lopez D.O. Patient Name: CHAR DUMONT MR#: [id number] : 1980 Exam Date: 05/23/2023 Ordering Doctor: DR Sanjeev Lopez . This report includes an Addendum and supersedes previous reports for this exam. RADIOLOGY REPORT PROCEDURE: MM STEREOTACTIC LOC LT [...] Tee Peterson M.D. on 05/23/2023 at 14:37 ADDENDUM: Final pathologic diagnosis: Benign breast tissue with focal dense stromal fibrosis. Dictated by: Tee Peterson M.D. on 06/09/2023 at 09:00 Approved by: Tee Peterson M.D. on 06/09/2023 at 09:01 Dictated By: Tee Peterson M.D. Signed By: 06/09/23901 DD/ 0 TD/TT: Metal Solderer: Procedure Note Radiology, Radiologist, MD - 06/09/2023 [place] [address] Mammography Report Signed Patient: CHAR DUMONT DMR#: [id number] : 1980Acct:[id number] Age/Sex: 42 / FADM Date: 05/23/23 Loc: MAMMO Attending Dr: Sanjeev Lopez D.O. Ordering Physician: Sanjeev Lopez D.O.Results: Date of Service: 05/23/23Follow Up: Procedure(s): MM stereotactic loc LT Accession Number(s): [id number] cc: Radha Sanchez M.D.; Sanjeev Lopez D.O. Patient Name: CHAR DUMONT MR#: [id number] : 1980 Exam Date: 05/23/2023 Ordering Doctor: DR Sanjeev Lopez . This report includes an Addendum and supersedes previous reports for this exam. RADIOLOGY REPORT PROCEDURE: MM STEREOTACTIC LOC LT [...] Tee Peterson M.D. on 05/23/2023 at 14:37 ADDENDUM: Final pathologic diagnosis: Benign breast tissue with focal dense stromal fibrosis. Dictated by: Tee Peterson M.D. on 06/09/2023 at 09:00 Approved by: Tee Peterson M.D. on 06/09/2023 at 09:01 Dictated By: Tee Peterson M.D. Signed By:06/09/23901 DD/ 0 TD/TT: Metal Solderer: Sanjeev Lopez DO IM XR PROCEDURES Final Result documented in this encounter Visit Diagnoses Not on filedocumented in this encounter Care Teams Economics Analyst Relationship Specialty Start Date End Date Radha Sanchez MD [address] [place] [phone] PCP - General Family Medicine 12/12/22 documented as of this encounter
--- OUTSIDE RECORDS SUMMARY | 2024-11-28 09:55 | XMS_ITS | Encounter Summary ---
Author Organization [facility] Address [address] [place] [address] Care Team Providers Care Track Man Name Role Phone Radha Sanchez MD Primary Care Provider [phone] Encounter Details Date Type Department Care Team (Late st Contact Info) Description 03/13/2024 Clinisync Result Encounter [facility] External Department Unsolicited Sanjeev oLpez, DO [address] [place] [address] [place], [place] [phone] Social History Tobacco Use Types Packs/Day Years [...] Office Visit [facility] [address] [place] [phone] Georig Carreon, DPMiles [address] [place], [place] [phone] 07/29/2025 3:00 PM EDT Office Visit [facility] [address] [facility] [phone] Sanjeev Lopez DO [address] [facility] [place] [address] documented as of this encounter Procedures Procedure Name Priority Date/Time Associated Diagnosis Comments US BREAST BI LIMITED 03/13/2024 2:58 PM EST documented in this encounter Results * US BREAST BI LIMITED (03/13/2024 2:58 PM EST) Anatomical Region Laterality Modality Other 03/13/2024 2:58 PM EST Narrative 03/13/2024 2:59 PM EST The [address] [address] Ultrasound Report Signed Patient: CHAR DUMONT MR#: [id number] : 1980 Acct:[id number] Age/Sex: 43 / F ADM Date: 03/13/24 Loc: MAMMO Attending Dr: Sanjeev Lopez D.O. Ordering Physician: Sanjeev Lopez D.O. Date of Service: 03/13/24 Procedure(s): US breast BI limited Accession Number(s): [id number] cc: Radha Sanchez M.D.; Sanjeev Lopez D.O. Patient Name: CHAR DUMONT MR#: [id number] : 1980 Exam Date: 03/13/2024 Ordering Doctor: DR Sanjeev Lopez . RADIOLOGY REPORT PROCEDURE: MM TOMOSYNTHESIS DIAGNOSTIC BI, 03/13/2024, 13:30 US BREAST BI LIMITED, 03/13/2024, 14:10 COMPARISON: MM POST BIOPSY LT, 05/23/2023. MM TOMOSYNTHESIS DIAGNOSTIC LT, 11/15/2023. INDICATIONS: Breast Pain Calculator Name NCI Breast Cancer Risk Assessment Tool 5 Year Breast Cancer Risk 0.90% Lifetime Breast Cancer Risk 10.90% Personal Breast Cancer No Personal Ovarian Cancer No Treatments None Family Cancers Grandmother-maternal with stomach cancer at age 65. LOCATION: [facility] BREAST COMPOSITION: There are scattered areas of fibroglandular density. FINDINGS: DIAGNOSTIC CATEGORY 3--PROBABLY BENIGN FINDING. THE FOLLOWING FINDING(S) HAS A HIGH PROBABILITY OF A BENIGN ETIOLOGY: The breasts are stable in size and overall fibroglandular configuration.Scattered benign-appearing lymph nodes are present. RIGHT BREAST: No significant mammographic abnormality. Ultrasound demonstrates at the 3 o'clock position a 1.2 x 0.3 x 1.0 cm area of oval smooth hypoechogenicity with some acoustic shadowing, no corresponding mammographic abnormality. This is indeterminate the relatively benign in appearance six-month follow-up is recommended for further evaluation. LEFT BREAST: No significant suspicious finding. Micro clip marker lower inner quadrant, mid breast, stable RECOMMENDATIONS: SHORT TERM FOLLOW-UP ULTRASOUND RIGHT BREAST IN 6 MONTHS. PLEASE NOTE: A NORMAL MAMMOGRAM DOES NOT EXCLUDE THE POSSIBILITY OF BREAST CANCER. A CLINICALLY SUSPICIOUS PALPABLE LUMP SHOULD BE BIOPSIED. Dictated by: Mj Silva MD on 03/13/2024 at 14:56 Approved by: Mj Silva MD on 03/13/2024 at 14:58 Dictated By: Mj Silva M.D. Signed By: 03/13/24 1459 DD/ 1458 TD/TT: Director Of Retail Merchandising: Procedure Note Radiology, Radiologist, - 03/13/2024 [place] [address] Ultrasound Report Signed Patient: CHAR DUMONT DMR#: [id number] : 1980Acct:[id number] Age/Sex: 43 / FADM Date: 03/13/24 Loc: MAMMO Attending Dr: Sanjeev Lopez D.O. Ordering Physician: Sanjeev Lopez D.O. Date of Service: 03/13/24 Procedure(s): US breast BI limited Accession Number(s): [id number] cc: Radha Sanchez M.D.; Sanjeev Lopez D.O. Patient Name: CHAR DUMONT MR#: [id number] : 1980 Exam Date: 03/13/2024 Ordering Doctor: DR Sanjeev Lopez . RADIOLOGY REPORT PROCEDURE: MM TOMOSYNTHESIS DIAGNOSTIC BI, 03/13/2024, 13:30 US BREAST BI LIMITED, 03/13/2024, 14:10 COMPARISON: MM POST BIOPSY LT, 05/23/2023. MM TOMOSYNTHESIS DIAGNOSTICLT, 11/15/2023. INDICATIONS: Breast Pain Calculator Name NCI Breast Cancer Risk Assessment Tool 5 Year Breast Cancer Risk 0.90% Lifetime Breast Cancer Risk 10.90% Personal Breast Cancer No Personal Ovarian Cancer No Treatments None Family Cancers Grandmother-maternal with stomach cancer at age 65. LOCATION: [facility] BREAST COMPOSITION: There are scattered areas of fibroglandulardensity. FINDINGS: DIAGNOSTIC CATEGORY 3--PROBABLY BENIGN FINDING. THE FOLLOWING FINDING(S)HAS A HIGH PROBABILITY OF A BENIGN ETIOLOGY: The breasts are stable in size and overall fibroglandular configuration.Scattered benign-appearing lymph nodes are present. RIGHT BREAST: No significant mammographic abnormality. Ultrasound demonstrates at the 3 o'clock position a 1.2 x 0.3 x 1.0 cm area of oval smooth hypoechogenicity with some acoustic shadowing, no corresponding mammographic abnormality. This is indeterminate the relatively benign in appearance six-month follow-up is recommended for further evaluation. LEFT BREAST: No significant suspicious finding. Micro clip marker lower inner quadrant, mid breast, stable RECOMMENDATIONS: SHORT TERM FOLLOW-UP ULTRASOUND RIGHT BREAST IN 6 MONTHS. PLEASE NOTE: A NORMAL MAMMOGRAM DOES NOT EXCLUDE THE POSSIBILITY OFBREAST CANCER. A CLINICALLY SUSPICIOUS PALPABLE LUMP SHOULD BE BIOPSIED. Dictated by: Mj Silva MD on 03/13/2024 at 14:56 Approved by: Mj Silva MD on 03/13/2024 at 14:58 Dictated By: Mj Silva M.D. Signed By:03/13/24 1459 DD/ 1458 TD/TT: Director Of Retail Merchandising: us Sanjeev Lopez DO [facility] Final Result documented in this encounter Visit Diagnoses Not on filedocumented in this encounter Care Teams Track Man Relationship Specialty [place] [address] [place] [phone] PCP - General Family Medicine 12/12/22 documented as of this encounter
--- OUTSIDE RECORDS SUMMARY | 2024-11-28 09:55 | XMS_ITS | Clinical Summary ---
Author Organization [facility] Address [address] [place] [address] Care Team Providers Care Jewel Waxer Name Role Phone Radha Sanchez MD Primary Care Provider [phone] Allergies Active Allergy Reactions Criticality Noted Date Comments Adhesive Rash Medium 01/25/2024 Pt states allergic to paper tape Topiramate Other,Swelling,Unknown Low 12/19/2013 Medications butalbital-acetami nophen-caff (Fioricet) 50-300-40 mg capsule Take 50 capsules by mouth every 4 (four) hours if needed. 06/29/19 25 Active amphetamine-dextro amphetamine XR (Adderall XR) 30 mg 24 hr capsule Take 30 mg by mouth in the morning. 11/22/19 24 Active amphetamine-dextro amphetamine (Adderall) 20 mg tablet Take 20 mg by mouth in the morning. 08/17/19 24 Active escitalopram (Lexapro) 10 mg tablet Take 10 mg by mouth in the morning. Active magnesium glycinate 100 mg magnesium capsule Take 200 mg by mouth in the morning. Active ondansetron ODT (Zofran-ODT) 4 mg disintegrating tablet Take 4 mg by mouth every 8 (eight) hours if needed. 06/28/19 25 Active Mounjaro 12.5 mg/0.5 mL pen injector 12.5 Units by subcutaneous (via wearable injector) route 1 (one) time per week. 06/14/19 25 Active mqfzliivoxja-qig-z scott-FA-vit K 18 mg iron-400 mcg-25 mcg tablet Take by mouth. Acti ve Qelbree 200 mg capsule,extended release 24hr Take 1 capsule by mouth in the morning. Active metoprolol succinate XL (Toprol-XL) 50 mg 24 hr tabletIndications: Benign hypertensive heart disease without congestive heart failure Take 1 tablet (50 mg) by mouth once daily as directed. 90 tablet 3 08/08/19 25 Active losartan (Cozaar) 100 mg tabletIndications: Benign hypertensive heart disease without congestive heart failure Take 1 tablet (100 mg) by mouth once daily as directed. 90 tablet 3 08/08/19 25 Active amLODIPine (Norvasc) 10 mg tabletIndications: Uncontrolled hypertension Take 1 tablet (10 mg) by mouth in the morning. 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 Mallet deformity of right ring finger 05/16/2023 Breast pain 10/06/2022 Frequent headaches 10/06/2022 Hallux valgus (acquired), left foot 10/06/2022 Insulin resistance 10/06/2022 Labial cyst 10/06/2022 Menorrhagia 10/06/2022 Weight gain 10/06/2022 History of multiple miscarriages 12/01/2021 Myelopathy 12/01/2021 Neurogenic bladder 12/01/2021 Psychophysiological insomnia 12/01/2021 Vitamin B12 deficiency 12/01/2021 DDD (degenerative disc disease), lumbar 08/26/19 22 Decreased movements in third trimester 09/2019 History of PCOS 01/24/2017 Insulin controlled gestation al diabetes mellitus (GDM) in second trimester 01/24/2017 BMI 45.0-49.9, adult 10/17/2016 History of spontaneous 09/05/2016 History of delivery 09/05/2016 Hirsutism 10/11/2013 Irritable bowel syndrome 10/11/2013 Migraines 10/11/2013 Polycystic ovarian syndrome 10/11/2013 Family History Medical History Relation Name Comments No Known Problems Father Heart murmur Mother Relation Name Status Comments Father Alive Mother Alive Social History Tobacco Use Types Packs/Day Years Used Date Smoking Tobacco: Never Smokeless Tobacco: Never Tobacco Cessation:Counseling Given: Not Answered Alcohol Use Standard Drinks/Week Comments Never 0 (1 standard drink = 0.6 oz pur e alcohol) [place] Safety & Environment Answer Date Rec orded Fear of Current or Ex-Partner Not on file Emotionally Abused Not on file 05/25/2023 Physically Abused Not on file 05/25/2023 Sexually Abused Not on file 05/25/2023 Physically or Sexually Abused Not on file Comments Unknown Sex and Gender Information Value Date Recorded Sex Assigned at Female 08/02/2024 8:53 AM EDT Legal Sex Female 9:51 PM EDT Gender Identity Female 08/02/2024 8:53 AM EDT Sexual Orientation Heterosexual or Straight 05/2024 8:53 AM EDT Last Filed Vital Signs Vital Sign Reading Time Taken Comments Blood Pressure 115/83 08/05/2024 11:20 AM EDT Pulse 91 08/05/2024 11:20 AM EDT Temperature - - Respiratory Rate - - Oxygen Saturation 100% 08/05/2024 11:20 AM EDT Inhaled Oxygen Concentration - - Weight 93.4 kg (206 lb) 08/05/2024 11:20 AM EDT Height 165.1 cm (5' 5 ) 08/05/2024 11:20 AM EDT Body Mass Index 34.28 08/05/2024 11:20 AM EDT Plan of Treatment Health Maintenance Due Date Last Done Comments Depression Screening 1994 Varicella Vaccines (1 of 2 - 13+ 2-dose series) 12/01/1995 Hepatitis B Vaccines (1 of 3 - 19+ 3-dose series) 2001 Adult Tetanus 2004 HPV/Cotest 2012 Mammogram 2022 COVID-19 Vaccine ( - 2023-2 5 season) 2023 Influenza Vaccine (#1) 2024 Cervical Cancer Screening 07/23/2027 Pap Smear 07/23/2027 07/22/2024 Zoster Vaccines (1 of 2) 2032 HIB Vaccines Aged Out No longer eligi ble based on patient's age to complete this topic HPV Vaccines Aged Out No longer eligi ble based on patient's age to complete this topic IPV Vaccines Aged Out No longer eligi ble based on patient's age to complete this topic Meningococcal B Vaccine Aged Out No l onger eligible based on patient's age to complete this topic Meningococcal Vaccine Aged Out No lorena jan eligible based on patient's age to complete this topic Pneumococcal Vaccine: Pediat rics (0 to 5 Years) and At-Risk Patients (6 to 64 Years) Aged Out No longer eligi ble based on patient's age to complete this topic Rotavirus Vaccines Aged Out No longer eligible based on patient's age to complete this topic Insurance [facility] Member Subscriber Plan / Payer (Ef fective 2024-Present) Name:Karuna Dumont Relation to Subscriber:Spouse Name:ROBERT DUMONT Date of :1984 Address: [address] [place] [address] Payer ID:[id number] (NAIC) Type:Not on file Address: [facility] [id number] [place] [id number] Care Teams Jewel Waxer Relationship Specialty Start Date End Date Radha Sanchez MD [address] [facility] [address] PCP - General 06/21/24
--- OUTSIDE RECORDS SUMMARY | 2024-11-28 09:55 | XMS_ITS | Encounter Summary ---
Author Organization [facility] Address [address] [facility] [place] [address] Care Team Providers Care Breast Buffer Name Role Phone Radha Sanchez MD Primary Care Provider [phone] Encounter Details Date Type Department Care Team (Late st Contact Info) Description 04/18/2024 Abstract [facility] [address] [place] [address] Natalia Choi LPN Social History Tobacco Use Types Packs/Day Years [...] Office Visit [facility] [address] [place] [phone] Georgi Carreon DPMiles [address] [place] [phone] 07/29/2025 3:00 PM EDT Office Visit [facility] [address] [facility] [place] [phone] Sanjeev Lopez DO [address] [facility] [place] [address] documented as of this encounter Visit Diagnoses Not on filedocumented in this encounter Care Teams Breast Buffer Relationship Specialty Start Date End Date Radha Sanchez MD [address] [facility] [phone] PCP - General Family Medicine 12/12/22 documented as of this encounter
--- OUTSIDE RECORDS SUMMARY | 2024-11-28 09:55 | XMS_ITS | Clinical Summary ---
Author Organization [employer] Address [id number] [address] [place] [address] Care Team Providers Care Woodworking Machine Offbearer Name Role Phone Radha Sanchez MD Primary Care Provider [phone] Allergies Active Allergy Reactions Criticality Noted Date Comments Adhesive Rash Medium 01/25/2024 Pt states allergic to paper tape Topiramate Swelling,Other (See Comments) Low 12/19/2013 Medications * This document contains information received from the source organization and may not represent a complete record from that organization. ondansetron ODT (ZOFRAN ODT) 4 mg disintegrating tablet Dissolve 1 tablet (4 mg total) on tongue every 8 (eight) hours as needed for nausea or vomiting. 30 tablet 024 Active losartan (COZAAR) 100 mg tablet Take 1 tablet (100 mg total) by mouth in the morning. 025 Active metoprolol succinate XL (TOPROL XL) 50 mg 24 hr tablet Take 1 tablet (50 mg total) by mouth. 025 Active BD ALCOHOL SWABS pads, medicated 024 Active ONETOUCH VERIO TEST STRIPS strip 025 Active gelatin, empty no. 00, capsule Compound medication for hypothryroid 025 Active ONETOUCH DELICA PLUS LANCET 33 gauge misc 025 Active amLODIPine (NORVASC) 5 mg tablet Take 2 tablets (10 mg total) by mouth in the morning. 025 2025 Active tirzepatide (MOUNJARO) 2.5 mg/0.5 mL pen injector Inject 2.5 mg under the skin every 7 days. Sundays Active multivitamin-min- iron-FA-vit K 18 mg iron-400 mcg-25 mcg tablet Take by mouth. Active aspirin 325 mg tablet Take 1 tablet (325 mg total) by mouth in the morning. Active magnesium oxide (MAGOX) 400 mg tablet Take 1 tablet (400 mg total) by mouth nightly. Active cholecalciferol, vitamin D3, 5,000 units tablet Take 1 tablet (5,000 Units total) by mouth in the morning. Active hydrOXYzine (ATARAX) 25 mg tabletIndications :Generalized anxiety disorder Take 1 tablet (25 mg total) by mouth 4 (four) times a day as needed for anxiety (or sleep). 120 tablet 2 025 Active lisdexamfetamine (VYVANSE) 40 mg capsuleIndication s:Attention deficit hyperactivity disorder (ADHD), predominantly inattentive type Take 1 capsule (40 mg total) by mouth every morning. Max Daily Amount: 40 mg 30 capsule 025 Active viloxazine (QELBREE) 200 mg capsule,extended release 24hrIndications:A ttention deficit hyperactivity disorder (ADHD), predominantly inattentive type Take 400 mg by mouth in the morning. 60 capsule 5 025 Active viloxazine (QELBREE) 200 mg capsule,extended release 24hr Active viloxazine (QELBREE) 200 mg capsule,extended release 24hrIndications:A DHD (attention deficit hyperactivity disorder), inattentive type Take two 200 mg capsules (400 mg total) in the morning by mouth. 63 capsule 025 Active viloxazine (QELBREE) 200 mg capsule,extended release 24hrIndications:A ttention deficit hyperactivity disorder (ADHD), predominantly inattentive type Take 200 mg by mouth in the morning. 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 05/16/2023 Breast pain 10/06/2022 Frequent headaches 10/06/2022 Hallux valgus (acquired), left foot 10/06/2022 Insulin resistance 10/06/2022 Labial cyst 10/06/2022 Menorrhagia 10/06/2022 Polycystic ovaries 10/06/2022 Weight gain 10/06/2022 History of multiple miscarriages 12/01/2021 Myelopathy 12/01/2021 Neurogenic bladder 12/01/2021 Psychophysiological insomnia 12/01/2021 Migraine without aura and wi thout status migrainosus, not intractable 12/01/2021 Vitamin B12 deficiency 12/01/2021 DDD (degenerative disc disease), lumbar 08/26/19 Decreased movements in third trimester 09/2019 History of PCOS 01/24/2017 Class 3 obesity in adult 01/24/2017 Insulin controlled gestation al diabetes mellitus (GDM) in second trimester 01/24/2017 BMI 45.0-49.9, adult 10/17/2016 History of spontaneous 09/05/2016 History of delivery 09/05/2016 Encounters * This document contains information received from the source organization and may not represent a complete record from that organization. Date Type Department Care Team Description 11/05/2024 Orders Only [facility] [address] [place] [address] Jo Meyer, RIZWANANIMAL NUTRITIONIST 10/21/2024 Travel 09/02/2024 Travel from Last 3 Months Family History Medical History Relation Name Comments Cancer Maternal Grandfather stomach Heart attack Maternal Grandfather Heart disease Maternal Grandfather Hypertension Maternal Grandfather Stroke Maternal Grandfather Thyroid disease Maternal Grandfather Alzheimer's disease Maternal Grandmother Hypertension Maternal Grandmother Irritable bowel syndrome Maternal Grandmother Irritable bowel syndrome Mother Thyroid disease Mother Relation Name Status Comments Father Alive Maternal Grandfather Maternal Grandmother Mother Alive Social History Tobacco Use Types Packs/Day Years Used Date Smoking Tobacco: Never Smokeless Tobacco: Never Tobacco Cessation:Counseling Given: Not Answered Alcohol Use Standard Drinks/Week Comments No 0 (1 standard drink = 0.6 oz pur e alcohol) [facility] Utilities Answer Date Recorded In the past 12 months has th e electric, gas, oil, or water company threatened [...] got money to buy more. Never True 10/21/2024 Within the past 12 months th e food we bought just didn't last and we didn't have money to get more. Never True 10/21/2024 Purpose - Life Answer Date Recorded Purpose and direction in life Unknown Comments No Sex and Gender Information Value Date Recorded Sex Assigned at Not on file Legal Sex Female 12:08 PM EDT Gender Identity Not on file Sexual Orientation Not on file Last Filed Vital Signs Vital Sign Reading Time Taken Comments Blood Pressure 122/92 10/21/2024 1:01 PM EDT Pulse 68 10/21/2024 1:01 PM EDT Temperature 36.8 C (98.2 F) 08/08/2024 10:20 AM EDT Respiratory Rate 16 08/08/2024 10:50 AM EDT Oxygen Saturation 97% 08/08/2024 10:50 AM EDT Inhaled Oxygen Concentration - - Weight 86.2 kg (190 lb) 08/08/2024 6:45 AM EDT Height 165.1 cm (5' 5 ) 08/08/2024 6:45 AM EDT Body Mass Index 31.62 08/08/2024 6:45 AM EDT Plan of Treatment Health Maintenance Due Date Last Done Comments Adult BMI Follow Up Plan 2000 DTaP,Tdap and Td Vaccines (1 - Tdap) 2001 Depression Screening 12/01/2022 12/01/2021 Influenza Vaccine 12/02/2024 Adult BMI Screening 08/08/2025 08/08/2024 Tobacco Screening 10/21/2025 10/21/2024 Pap Smear 07/23/2027 07/22/2024 Goals Goal Patient Goal Type Associated Problems Recent Progress Patient-Stated? Author have better pain control General Yes Azeb Dimas, RN Note: Evaluation of progress towards goal: johns removal; pain management Medical Devices Implanted Type Area Mining Manager Device Identifier Shelf Expiration Date Model / Serial / Lot Staple [id number] Str Grt Wht Jaws Ntnl Bn Rpl [id number] - Sna - [id number] Implanted:Qty : 1 on 08/08/2024 by Georgi Carreon DPM at [facility] Orthopedic Implant Left: Foot [employer] 10/15/2028 [id number] 020-S / NA / [id number] Staple [id number] Str Grt Wht Jaws Ntnl Bn Rpl [id number] - Sna - [id number] Implanted:Qty : 1 on 08/08/2024 by Georgi Carreon DPM at [facility] Orthopedic Implant Left: Foot [employer] 05/31/2028 [id number] / NA / [id number] Screw Bn 13mm 2mm Bite Mnstr St Ns - Sna - [id number] Implanted:Qty : 1 on 08/08/2024 by Georgi Carreon DPM at [facility] Screw Left: Foot [employer] [id number] 13S / NA / NA Screw Bn 10mm 2mm Hd Mn-Mnstr St Ns - [id number] Implanted:Qty : 2 on 08/08/2024 by Georgi Carreon DPM at [facility] Screw Left: Foot [employer] [id number] 10S / / Explanted Type Area Mining Manager Device Identifier Shelf Expiration Date Model / Serial / Lot Wire Fx Krsh 1.6mm 100mm 1 End Troc Tip Smth - [id number] Explanted:Qty : 4 on 08/08/2024 at [facility] Orthopedic Implant Left: Foot [employer] [id number] 610 / / Wire Fx Krsh 1.6mm 150mm 1 End Troc Tip Smth Rpl [id number] - [id number] Explanted:Qty : 1 on 08/08/2024 at [facility] Orthopedic Implant Left: Foot [employer] [id number] 615 / / Wire Fx Krsh .9mm 150mm 1 End Troc Pnt [facility] Ns - [id number] Explanted:Qty : 2 on 08/08/2024 by Georgi Carreon DPM at [facility] Orthopedic Implant Left: Foot [employer] [id number] 915 / / Guidewire Orth 1.6mm 150mm 2 Blnt th - [id number] Explanted:Qty : 1 on 08/08/2024 at [facility] Other Implant Left: Foot [employer] [id number] 615 / / Screw Bn 12mm 2mm Hd Mn-Mnstr St Ns - Sna - [id number] Explanted:Qty : 1 on 08/08/2024 by Georgi Carreon DPM at [facility] Screw Left: Foot [employer] [id number] 12S / NA / NA Insurance ANTH Advance Directives * Full Code (Latest Code Status on File) Date Activated Date Inactivated Comments 01/25/2024 2:30 PM 01/26/2024 2:17 PM Care Teams Woodworking Machine Offbearer Relationship Specialty Start Date End Date Radha Sanchez MD [address] [place] [address] PCP - General 03/13/23
--- OUTSIDE RECORDS SUMMARY | 2024-11-28 09:55 | XMS_ITS | Encounter Summary ---
Author Organization [facility] Address [address] [place] [address] Care Team Providers Care Therapeutic Case Manager Name Role Phone Radha Sanchez MD Primary Care Provider [phone] Encounter Details Date Type Department Care Team (Late st Contact Info) Description 05/10/2023 Clinisync Result Encounter [facility] External Department Unsolicited Sanjeev Lopez, DO [address] [place] [address] [address] [place], [place] [id number] Social History Tobacco Use Types Packs/Day Years [...] Office Visit [facility] [address] [place] [phone] Georgi Carreon, DPMiles [address] [place], [place] [phone] 07/29/2025 3:00 PM EDT Office Visit [facility] [address] [place] [phone] Sanjeev Lopez DO [address] [place] [address] documented as of this encounter Procedures Procedure Name Priority Date/Time Associated Diagnosis Comments US BREAST LT LIMITED 05/10/2023 8:42 AM EST CORTISOL, FREE DIALYSIS, LCMS Routine 05/10/2023 7:48 AM EST [facility] INSULIN Routine 05/10/2023 7:48 AM EST [facility] ESTRONE Routine 05/10/2023 7:48 AM EST ALL C-PEPTIDE Routine 05/10/2023 7:48 AM EST documented in this encounter Results * US BREAST LT LIMITED (05/10/2023 8:42 AM EST) Anatomical Region Laterality Modality Other 05/10/2023 8:42 AM EST Narrative 05/15/2023 1:13 PM EST The [address] [address] Ultrasound Report Signed Patient: CHAR DUMONT MR#: [id number] : 1980 Acct:[id number] Age/Sex: 42 / F ADM Date: 05/10/23 Loc: MAMMO Attending Dr: Sanjeev Lopez D.O. Ordering Physician: Sanjeev Lopez D.O. Date of Service: 05/10/23 Procedure(s): US breast LT limited Accession Number(s): [id number] cc: Radha Sanchez M.D.; Sanjeev Lopez D.O. Patient Name: CHAR DUMONT MR#: [id number] : 1980 Exam Date: 05/10/2023 Ordering Doctor: [...] stomach cancer at age 67. LOCATION: The [facility] BREAST COMPOSITION: Scattered areas fibroglandular [...] Signed By: 05/15/23 1313 DD/ 0842 TD/TT: Bar And Filler Assembler: Procedure Note Radiology, Radiologist, MD - 05/15/2023 [place] [address] Ultrasound Report Signed Patient: CHAR DUMONT DMR#: [id number] : 1980Acct:[id number] Age/Sex: 42 / FADM Date: 05/10/23 Loc: MAMMO Attending Dr: Sanjeev Lopez D.O. Ordering Physician: Sanjeev Lopez D.O. Date of Service: 05/10/23 Procedure(s): US breast LT limited Accession Number(s): [id number] cc: Radha Sanchez M.D.; Sanjeev Lopez D.O. Patient Name: CHAR DUMONT MR#: [id number] : 1980 Exam Date: 05/10/2023 Ordering Doctor: [...] stomach cancer at age 67. LOCATION: The [facility] BREAST COMPOSITION: Scattered areas fibroglandular [...] 08:42 Dictated By: Mj Silva M.D. Signed By:05/15/23 1313 DD/ 0842 TD/TT: Bar And Filler Assembler: Sanjeev Lopez DO [facility] Final Result * ALL C-PEPTIDE (05/10/2023 7:48 AM EST) C-PEPTIDE, SERUM 2.8 1.1 - 4.4 ng/mL [facility] Comment: C-Peptide reference interval is for fasting patients. Performed at: [address] [id number] Masonry Contractor: Theron Roblero PhD, Phone: [phone] 05/10/2023 7:48 AM EST 05/10/2023 7:51 AM EST Narrative [facility] - 05/18/2023 5:08 PM EST Sanjeev Jessica DO [facility] Final Result Performing Organization Address [facility]/ZIP Co de Phone Number [facility] * [facility] ESTRONE (05/10/2023 7:48 AM EST) ESTRONE, SERUM 65 27 - 231 pg/mL [facility] Comment: Range Adult (Premenopausal) 27 - 231 Menstrual Cycle (1-10 days) 19 - 149 Menstrual Cycle (11-20 days) 32 - 176 Menstrual Cycle (21-30 days) 37 - 200 Performed at: [address] [id number] Masonry Contractor: Katelynn Macdonald MD, Phone: [phone] 05/10/2023 7:48 AM EST 05/10/2023 7:51 AM EST Narrative [facility] - 05/18/2023 5:08 PM EST [facility] Final Result Performing Organization Address [facility] Co de Phone Number [facility] * [facility] INSULIN (05/10/2023 7:48 AM EST) INSULIN 7.0 2.6 - 24.9 uIU/mL [facility] Comment: Performed at: [address] [id number] Masonry Contractor: Theron Roblero PhD, Phone: [phone] 05/10/2023 7:48 AM EST 05/10/2023 7:51 AM EST Narrative [facility] - 05/18/2023 5:08 PM EST Sanjeev Jessica DO [facility] Final Result [facility] * CORTISOL, FREE DIALYSIS, LCMS (05/10/2023 7:48 AM EST) CORTISOL, FREE DIALYSIS, LCMS 0.787 . ug/dL [facility] Comment: These tests were developed and their performance characteristics determined by [facility]. They have not been cleared or approved by the Food and Drug Administration. Reference Range: 8 AM 0.10 - 1.20 4 PM 0.042 - 0.872 Performed at: [facility] [address] [place] [id number] Masonry Contractor: Kal Archibald MD, Phone: [phone] 05/10/2023 7:48 AM EST 05/10/2023 7:51 AM EST Narrative [facility] - 05/16/2023 6:08 PM EST us Sanjeev Jessica DO LAB BLOOD ORDERABLES Final Resul t [facility] documented in this encounter Visit Diagnoses Not on filedocumented in this encounter Care Teams Therapeutic Case Manager Relationship Specialty Start Date End Date Radha Sanchez MD [address] [place] [address] PCP - General Family Medicine 12/12/22 documented as of this encounter
--- OUTSIDE RECORDS SUMMARY | 2024-11-28 09:55 | XMS_ITS | Encounter Summary ---
Author Organization [facility] Address [address] [facility] [place] [address] Care Team Providers Care Asbestos Hazard Abatement Worker Name Role Phone Radha Sanchez MD Primary Care Provider [phone] Encounter Details Date Type Department Care Team (Late st Contact Info) Description 11/27/2023 Abstract [facility] [place] [facility] [address] [place] [address] Sanjeev Lopez DO [address] [place] [address] Social History Tobacco Use Types Packs/Day Years [...] Office Visit [facility] [address] [place] [phone] Georgi Carreon DPM [address] [place], [place] [phone] 07/29/2025 3:00 PM EDT Office Visit [facility] [place] [facility] [address] [place] [address] Sanjeev Lopez DO [address] [place] [address] documented as of this encounter Visit Diagnoses Not on filedocumented in this encounter Care Teams Asbestos Hazard Abatement Worker Relationship Specialty Start Date End Date Radha Sanchez MD [address] [facility] [place] [address] PCP - General Family Medicine 12/12/22 documented as of this encounter
--- OUTSIDE RECORDS SUMMARY | 2024-11-28 09:55 | XMS_ITS | Encounter Summary ---
Author Organization [employer] Address [id number] [address] [place] [address] Care Team Providers Care Checker In Name Role Phone Radha Sanchez MD Primary Care Provider Encounter Details Date Type Department Care Team (Late st Contact Info) Description 09/20/2021 Telephone [facility] [address] [phone] Willa Stevens Social History Tobacco Use Types Packs/Day Years [...] AM EDT documented as of this encounter Miscellaneous Notes * Telephone Encounter - Willa Mahan - 09/20/2021 4:11 PM EDT Please release patients imaging results to her mychart * Telephone Encounter - JOSSELYN Melendez - 09/20/2021 4:11 PM EDT Completed. documented in this encounter Plan of Treatment Not on file documented as of this encounter Visit Diagnoses Not on filedocumented in this encounter Additional Health Concerns Assessment Noted Time A Body Mass Index follow-up plan has been documented for the patient 09/03/2021 4:19 PM EDT documented as of this encounter Care Teams Checker In Relationship Specialty Start Date End Date Radha Sanchez MD [address] [place] [address] PCP - General 03/13/23 documented as of this encounter
--- OUTSIDE RECORDS SUMMARY | 2024-11-28 09:55 | XMS_ITS | Encounter Summary ---
Author Organization [facility] Address [address] [facility] [place] [address] Care Team Providers Care Home Performance Consultant Name Role Phone Radha Sanchez MD Primary Care Provider [phone] Encounter Details Date Type Department Care Team (Late st Contact Info) Description 11/22/2023 Orders Only [facility] [address] [place] [address] Lydia Keenan LPN [address] [place] [id number] Social History Tobacco Use Types Packs/Day Years [...] Description 01/29/2025 9:00 AM EDT Office Visit [facility] [address] [place] [phone] Georgi Carreon DPM [address] [place], [place] [phone] 07/29/2025 3:00 PM EDT Office Visit [facility] [address] [place] [address] Sanjeev Lopez DO [address] [facility] [place] [address] documented as of this encounter Procedures Procedure Name Priority Date/Time Associated Diagnosis Comments PAP SMEAR Routine 07/19/2023 12:00 AM EDT documented in this encounter Results * Pap Smear (07/19/2023 12:00 AM EDT) Swab Cervical swab / Unknown Jessica [facility] CYTOLOGY ORDERABLES Final Result EXTERNAL LAB documented in this encounter Visit Diagnoses Not on filedocumented in this encounter Care Teams Home Performance Consultant Relationship Specialty Start Date End Date Radha Sanchez MD [address] [facility] [place] [phone] PCP - General Family Medicine 12/12/22 documented as of this encounter
--- OUTSIDE RECORDS SUMMARY | 2024-11-28 09:55 | XMS_ITS | Encounter Summary ---
Author Organization [facility] Address [address] [place] [address] Care Team Providers Care Revenue Officer Name Role Phone Radha Sanchez MD Primary Care Provider [phone] Encounter Details Date Type Department Care Team (Late st Contact Info) Description 10/25/2023 Clinisync Result Encounter [facility] External Department Unsolicited Nick Lopez, DO [address] [place] [address] [address] [place], [place] [phone] Social History Tobacco Use Types Packs/Day Years [...] Office Visit [facility] [address] [place] [phone] Georgi Carreon, DPMiles [address] [place], [place] [phone] 07/29/2025 3:00 PM EDT Office Visit [facility] [address] [facility] [place] [phone] Nick Lopez DO [address] [facility] [place] [address] documented as of this encounter Procedures Procedure Name Priority Date/Time Associated Diagnosis Comments US PELVIS W/ TRANSVAGINAL 10/25/2023 11:10 AM EDT [facility] PREG QUANT HCG Routine 10/25/2023 9: 55 AM EDT [facility] PROTHROMBIN TIME INR W/O COUM Routine 10/25/2023 9:55 AM EDT [facility] APTT Routine 10/25/2023 9:55 AM EDT ALL THYROXINE (T4) FREE Routine 10/25/2023 9:55 AM EDT ALL THYROID STIM HORMONE Routine 10/25/2023 9:55 AM EDT ALL CBC WITH AUTO DIFF Routine 10/25/2023 9:55 AM EDT documented in this encounter Results * US PELVIS W/ TRANSVAGINAL (10/25/2023 11:10 AM EDT) Anatomical Region Laterality Modality Other 10/25/2023 11:1 0 AM EDT Narrative 10/25/2023 11:13 AM EDT The [address] [address] Ultrasound Report Signed Patient: CHAR DUMONT MR#: [id number] : 1980 Acct:[id number] Age/Sex: 42 / F ADM Date: 10/25/23 Loc: [facility] Attending Dr: Nick Lopez D.O. Ordering Physician: Nick Lopez D.O. Date of Service: 10/25/23 Procedure(s): US pelvis w/ transvaginal Accession Number(s): [id number] cc: Radha Sanchez M.D.; Nick Lopez D.O. The [place] [id number] Patient Name: CHAR DUMONT MRN: [id number] date: 1980 Sex: F Assigned Patient Location: [facility] Current Patient Location: LAB Accession/Order Number: [id number] Exam Date: 10/25/2023 09:07 Report Date: 10/25/2023 11:10 At the request of: NICK LOPEZ Procedure: US pelvis w/ transvaginal EXAMINATION: US pelvis w/ transvaginal HISTORY: MENORRHAGIA, PELVIC PAIN COMPARISON: No relevant comparison available. FINDINGS: Transabdominal and transvaginal images The uterus is normal in size, contour and myometrial echotexture measuring 8.6 x 4.4 x 5.4 cm. Anteverted, anteflexed. The endometrium measures 7 mm, normal. The right ovary is normal measuring 3.2 x 2.3 x 3.9 cm. Normal color and Doppler flow. Subcentimeter areas of anechoic echogenicity, follicles. 1.8 cm area of anechoic echogenicity with some low-level echoes likely a cyst. The left ovary is normal in size, contour and echotexture measuring 3.7 x 2.0 x 2.7 cm. Normal color Doppler flow. Subcentimeter areas of anechoic echogenicity, follicles No free fluid US/US pelvis w/ transvaginal IMPRESSION: No acute abnormality Electronically authenticated by: MONSERRAT PALACIOS Date: 10/25/2023 11:10 Dictated By: Monserrat Palacios M.D. Signed By: 10/25/23 1113 DD/ 1110 TD/TT: Temp Recruiter: Procedure Note Radiology, Radiologist, MD - 10/25/2023 [place] [address] Ultrasound Report Signed Patient: CHAR DUMONT DMR#: [id number] : 1980Acct:[id number] Age/Sex: 42 / FADM Date: 10/25/23 Loc: [facility] Attending Dr: Nick Lopez D.O. Ordering Physician: Nick Lopez D.O. Date of Service: 10/25/23 Procedure(s): US pelvis w/ transvaginal Accession Number(s): [id number] cc: Radha Sanchez M.D.; Nick Lopez D.O. [place] [id number] Patient Name: CHAR DUMONT MRN: [id number] date: 1980 Sex: F Assigned Patient Location: [facility] Current Patient Location: LAB Accession/Order Number: [id number] Exam Date: 10/25/2023 09:07 Report Date: 10/25/2023 11:10 At the request of: NICK LOPEZ Procedure: US pelvis w/ transvaginal EXAMINATION: US pelvis w/ transvaginal HISTORY: MENORRHAGIA, PELVIC PAIN COMPARISON: No relevant comparison available. FINDINGS: Transabdominal and transvaginal images The uterus is normal in size, contour and myometrial echotexture measuring8.6 x 4.4 x 5.4 cm. Anteverted, anteflexed. The endometrium measures 7 mm, normal. The right ovary is normal measuring 3.2 x 2.3 x 3.9 cm. Normal color and Doppler flow. Subcentimeter areas of anechoic echogenicity, follicles. 1.8cm area of anechoic echogenicity with some low-level echoes likely a cyst. The left ovary is normal in size, contour and echotexture measuring 3.7 x2.0 x 2.7 cm. Normal color Doppler flow. Subcentimeter areas of anechoic echogenicity, follicles No free fluid US/US pelvis w/ transvaginal IMPRESSION: No acute abnormality Electronically authenticated by: MONSERRAT PALACIOS Date: 10/25/2023 11:10 Dictated By: Monserrat Palacios M.D. Signed By:10/25/23 1113 DD/ 1110 TD/TT: Temp Recruiter: us Nick Jessica DO [facility] Final Result * ALL THYROXINE (T4) FREE (10/25/2023 9:55 AM EDT) FREE T4 1.24 0.76 - 1.46 ng/dL TB 10/25/2023 9:55 AM EDT 10/25/2023 9:56 AM EDT Narrative [facility] - 10/25/2023 11:52 AM EDT Nick Jessica DO [facility] Final Result [facility] * [facility] APTT (10/25/2023 9:55 AM EDT) PARTIAL THROMBOPLASTIN TIME 29.5 22.3 - 36.2 sec TB 10/25/2023 9:55 AM EDT 10/25/2023 9:56 AM EDT Narrative [facility] - 10/25/2023 11:49 AM EDT [facility] Final Result Performing Organization Address [facility] Co de Phone Number [facility] * [facility] PROTHROMBIN TIME INR W/O COUM (10/25/2023 9:55 AM EDT) PROTHROMBIN TIME 10.5 9.0 - 11.6 sec TB TBH INR 0.99 TBH Comment: DESIRED INR: 2.0-3.0 CONDITIONS NOT LISTED BELOW 2.5-3.5 FOR PROSTHETIC HEART VALVE REPLACEMENT 2.5-3.5 RECURRENT THROMBOSIS 10/25/2023 9:55 AM EDT 10/25/2023 9:56 AM EDT Narrative [facility] - 10/25/2023 11:49 AM EDT Nick Jessica DO [facility] Final Result [facility] * TBH PREG QUANT HCG (10/25/2023 9:55 AM EDT) Pathologist [facility] HCG QUANTITATIVE <1 mIU/mL TBH Comment: 5-50 0.2-1 WEEK 50-500 1-2 WEEKS 100-5,000 2-3 WEEKS 500-10,000 3-4 WEEKS 1,000-50,000 4-5 WEEKS 10,000-100,000 5-6 WEEKS 15,000-200,000 6-8 WEEKS 10,000-100,000 2-3 MONTHS 10/25/2023 9:5 5 AM EDT 10/25/2023 9:56 AM EDT Narrative [facility] - 10/25/2023 11:26 AM EDT Nick Jessica DO [facility] Final Result [facility] * ALL THYROID STIM HORMONE (10/25/2023 9:55 AM EDT) Pathologist [facility] THYROID STIMULATING HORMONE 1.497 0.358 - 3.740 uIU/mL TBH 10/25/2023 9:55 AM EDT 10/25/2023 9:56 AM EDT Narrative [facility] - 10/25/2023 11:26 AM EDT Nick Jessica DO [facility] Final Result [facility] * ALL CBC WITH AUTO DIFF (10/25/2023 9:55 AM EDT) Pathologist [facility] TBH WBC 5.5 4.0 - 11.0 10 3/uL TBH TBH RBC 4.52 4.20 - 5.40 10 6/uL TBH TBH HGB 12.6 12.0 - 16.0 g/dL TBH TBH HCT 39.8 36.0 - 48.0 % TBH TBH MCV 88.1 81.0 - 99.0 fL TBH TBH MCH 27.9 26.7 - 34.0 pg TBH TBH MCHC 31.7 29.9 - 35.2 g/dL TBH TBH RDW 14.5 11.0 - 15.0 % TBH TBH PLT 300 150 - 450 10 3/uL TBH TBH MPV 9.7 9.5 - 13.5 fL TBH NEUTROPHILS PERCENT AUTO 57.8 43.0 - 75.0 % TBH LYMPHOCYTES PERCENT AUTO 33.3 20.5 - 60.0 % TBH MONOCYTES PERCENT AUTO 5.4 1.7 - 12.0 % TBH TBH EO % 2.2 0.9 - 7.0 % TBH BASOPHILS PERCENT AUTO 1.1 0.2 - 2.0 % TBH IMMATURE GRANULOCYTES PCT AUTO 0.2 0.0 - 0.5 % TBH NEUTROPHILS ABSOLUTE AUTO 3.2 1.4 - 6.5 10 3/uL TBH LYMPHOCYTES ABSOLUTE AUTO 1.8 1.2 - 3.8 10 3/uL TBH MONOCYTES ABSOLUTE AUTO 0.3 0.3 - 0.8 10 3/uL TBH TBH EO # 0.1 0.0 - 0.7 10 3/uL TBH BASOPHILS ABSOLUTE AUTO 0.1 0.0 - 0.1 10 3/uL TBH IMMATURE GRANULOCYTES ABS AUTO 0.01 0.00 - 0.03 10 3/uL TBH 10/25/2023 9:55 AM EDT 10/25/2023 9:56 AM EDT Narrative [facility] - 10/25/2023 11:26 AM EDT us Nick Jessica DO [facility] Final [facility] documented in this encounter Visit Diagnoses Not on filedocumented in this encounter Care Teams Revenue Officer Relationship Specialty Start Date End Date Radha Sanchez MD [facility] [place] [address] PCP - General Family Medicine 12/12/22 documented as of this encounter
--- OUTSIDE RECORDS SUMMARY | 2024-11-28 09:55 | XMS_ITS | Encounter Summary ---
Author Organization [facility] Address [address] [place] [address] Care Team Providers Care Diesel Engine Mechanic Name Role Phone Radha Sanchez MD Primary Care Provider [phone] Encounter Details Date Type Department Care Team (Late Contact Info) Description 07/31/2024 Abstract [facility] [address] [place] [phone] Georgi Carreon DPM [address] [place], [place] [phone] Social History Tobacco Use Types Packs/Day Years [...] Office Visit [facility] [address] [place] [phone] Georgi Carreon DPM [address] [place], [place] [phone] 07/29/2025 3:00 PM EDT Office Visit [facility] [address] [facility] [place] [address] Sanjeev Lopez DO [address] [facility] [place] [address] documented as of this encounter Visit Diagnoses Not on filedocumented in this encounter Care Teams Diesel Engine Mechanic Relationship Specialty Start Date End Date Radha Sanchez MD [address] [facility] [place] [address] PCP - General Family Medicine 12/12/22 documented as of this encounter
--- OUTSIDE RECORDS SUMMARY | 2024-11-28 09:55 | XMS_ITS | Encounter Summary ---
Author Organization [facility] Address [address] [place] [address] Care Team Providers Care Marketing Administrator Name Role Phone Radha Sanchez MD Primary Care Provider [phone] Encounter Details Date Type Department Care Team (Late st Contact Info) Description 11/15/2023 Clinisync Result Encounter [facility] External Department Unsolicited Sanjeev Lopez, DO [address] [place] [address] [address] [place], [place] [phone] Social History Tobacco Use Types Packs/Day Years [...] Office Visit [facility] [address] [place] [phone] Georgi Carreon, DPMiles [address] [place], [place] [phone] 07/29/2025 3:00 PM EDT Office Visit [facility] [address] [facility] [place] [phone] Sanjeev Lopez DO [address] [facility] [place] [address] documented as of this encounter Procedures Procedure Name Priority Date/Time Associated Diagnosis Comments MM TOMOSYNTHESIS DIAGNOSTIC LT 11/15/2023 11:25 AM EDT documented in this encounter Results * MM TOMOSYNTHESIS DIAGNOSTIC LT (11/15/2023 11:25 AM EDT) Anatomical Region Laterality Modality Other 11/15/2023 11:2 5 AM EDT Narrative 11/15/2023 11:26 AM EDT The [address] [address] Mammography Report Signed Patient: CHAR DUMONT MR#: [id number] : 1980 Acct:[id number] Age/Sex: 42 / F ADM Date: 11/15/23 Loc: MAMMO Attending Dr: Sanjeev Lopez D.O. Ordering Physician: Sanjeev Lopez D.O. Results: Date of Service: 11/15/23 Follow Up: Procedure(s): MM tomosynthesis diagnostic LT Accession Number(s): [id number] cc: Radha Sanchez M.D.; Sanjeev Lopez D.O. Patient Name: CHAR DUMONT MR#: [id number] : 1980 Exam Date: 11/15/2023 Ordering Doctor: DR Sanjeev Lopez . RADIOLOGY REPORT PROCEDURE: MM TOMOSYNTHESIS DIAGNOSTIC LT COMPARISON: MM STEREOTACTIC LOC LT, 05/23/2023. MM POST BIOPSY LT, 05/23/2023. INDICATIONS: Status Post Left Breast Biopsy Z98.890 Calculator Name NCI Breast Cancer Risk Assessment Tool 5 Year Breast Cancer Risk 0.80% Lifetime Breast Cancer Risk 11.00% Personal Breast Cancer No Personal Ovarian Cancer No Treatments None Family Cancers Grandmother-maternal with stomach cancer at age 65. LOCATION: [facility] BREAST COMPOSITION: There are scattered areas of fibroglandular density. FINDINGS: DIAGNOSTIC CATEGORY 2--BENIGN FINDING. NO CHANGE FROM COMPARISON. Stable micro clip marker lower inner quadrant, mid breast. No new areas of suspicious calcification, architectural distortion or mass. RECOMMENDATIONS: ROUTINE MAMMOGRAM AND CLINICAL EVALUATION IN 12 MONTHS. PLEASE NOTE: A NORMAL MAMMOGRAM DOES NOT EXCLUDE THE POSSIBILITY OF BREAST CANCER. A CLINICALLY SUSPICIOUS PALPABLE LUMP SHOULD BE BIOPSIED. Dictated by: Mj Silva MD on 11/15/2023 at 11:23 Approved by: Mj Silva MD on 11/15/2023 at 11:25 Dictated By: Mj Silva M.D. Signed By: 11/15/23 1126 DD/ 1125 TD/TT: Materials Mgmt Tech: Procedure Note Radiology, Radiologist, - 11/15/2023 [place] [address] Mammography Report Signed Patient: CHAR DUMONT DMR#: [id number] : 1980Acct:[id number] Age/Sex: 42 / FADM Date: 11/15/23 Loc: MAMMO Attending Dr: Sanjeev Lopez D.O. Ordering Physician: Sanjeev Lopez D.O.Results: Date of Service: 11/15/23Follow Up: Procedure(s): MM tomosynthesis diagnostic LT Accession Number(s): [id number] cc: Radha Sanchez M.D.; Sanjeev Lopez D.O. Patient Name: CHAR DUMONT MR#: [id number] : 1980 Exam Date: 11/15/2023 Ordering Doctor: DR Sanjeev Lopez . RADIOLOGY REPORT PROCEDURE: MM TOMOSYNTHESIS DIAGNOSTIC LT COMPARISON: MM STEREOTACTIC LOC LT, 05/23/2023. MM POST BIOPSY LT, 05/23/2023. INDICATIONS: Status Post Left Breast Biopsy Z98.890 Calculator Name NCI Breast Cancer Risk Assessment Tool 5 Year Breast Cancer Risk 0.80% Lifetime Breast Cancer Risk 11.00% Personal Breast Cancer No Personal Ovarian Cancer No Treatments None Family Cancers Grandmother-maternal with stomach cancer at age 65. LOCATION: [facility] BREAST COMPOSITION: There are scattered areas of fibroglandulardensity. FINDINGS: DIAGNOSTIC CATEGORY 2--BENIGN FINDING. NO CHANGE FROM COMPARISON. Stable micro clip marker lower inner quadrant, mid breast. No new areasof suspicious calcification, architectural distortion or mass. RECOMMENDATIONS: ROUTINE MAMMOGRAM AND CLINICAL EVALUATION IN 12 MONTHS. PLEASE NOTE: A NORMAL MAMMOGRAM DOES NOT EXCLUDE THE POSSIBILITY OFBREAST CANCER. A CLINICALLY SUSPICIOUS PALPABLE LUMP SHOULD BE BIOPSIED. Dictated by: Mj Silva MD on 11/15/2023 at 11:23 Approved by: Mj Silva MD on 11/15/2023 at 11:25 Dictated By: Mj Silva M.D. Signed By:11/15/23 1126 DD/ 1125 TD/TT: Materials Mgmt Tech: us Sanjeev Jessica DO [facility] Final Result documented in this encounter Visit Diagnoses Not on filedocumented in this encounter Care Teams Marketing Administrator Relationship Specialty Start Date End Date Radha Sanchez MD [address] [place] [phone] PCP - General Family Medicine 12/12/22 documented as of this encounter
--- OUTSIDE RECORDS SUMMARY | 2024-11-28 09:55 | XMS_ITS | Encounter Summary ---
Author Organization [facility] Address [address] [facility] [place] [address] Care Team Providers Care Brood Station Manager Name Role Phone Radha Sanchez MD Primary Care Provider [phone] Encounter Details Date Type Department Care Team (Late st Contact Info) Description 12/06/2023 Abstract [facility] [address] [place] [address] Tatum Atkinson LPN [address] [place] [phone] Social History Tobacco Use Types Packs/Day Years [...] 01/29/2025 9:00 AM EDT Office Visit [facility] [address] [facility] [place] [phone] Georgi Carreon DPM [address] [place], [place] [address] 07/29/2025 3:00 PM EDT Office Visit [facility] [address] [facility] [place] [address] Sanjeev Lopez DO [address] [facility] [place] [address] documented as of this encounter Visit Diagnoses Not on filedocumented in this encounter Care Teams Brood Station Manager Relationship Specialty Start Date End Date Radha Sanchez MD [address] [place] [address] PCP - General Family Medicine 12/12/22 documented as of this encounter
--- OUTSIDE RECORDS SUMMARY | 2024-11-28 09:55 | XMS_ITS | Encounter Summary ---
Author Organization [facility] Address [address] [facility] [address] Care Team Providers Care Chief Mate Name Role Phone Radha Sanchez MD Primary Care Provider [phone] Encounter Details Date Type Department Care Team (Late st Contact Info) Description 04/16/2024 Abstract [facility] [address] [facility] [address] Sanjeev Lopez DO [address] [facility] [address] Social History Tobacco Use Types Packs/Day Years [...] Office Visit [facility] [address] [place] [phone] Georgi Carreon DPM [address] [place] [address] 07/29/2025 3:00 PM EDT Office Visit [facility] [address] [facility] [place] [address] Sanjeev Lopez DO [address] [facility] [place] [address] documented as of this encounter Visit Diagnoses Not on filedocumented in this encounter Care Teams Chief Mate Relationship Specialty Start Date End Date Radha Sanchez MD [address] [facility] [place] [address] PCP - General Family Medicine 12/12/22 documented as of this encounter
--- OUTSIDE RECORDS SUMMARY | 2024-11-28 09:55 | XMS_ITS | Encounter Summary ---
Author Organization [facility] Address [address] [facility] [place] [address] Care Team Providers Care Water Resources Business Segment Leader Name Role Phone Radha Sanchez MD Primary Care Provider [phone] Encounter Details Date Type Department Care Team (Late st Contact Info) Description 04/15/2024 Abstract [facility] [address] [facility] [place] [address] Sanjeev Lopez DO [address] [facility] [place] [address] Social History Tobacco Use Types Packs/Day Years [...] Office Visit [facility] [address] [place] [phone] Georgi Carreon DPM [address] [place] [address] 07/29/2025 3:00 PM EDT Office Visit [facility] [address] [facility] [place] [address] Sanjeev Lopez DO [address] [facility] [place] [address] documented as of this encounter Visit Diagnoses Not on filedocumented in this encounter Care Teams Water Resources Business Segment Leader Relationship Specialty Start Date End Date Radha Sanchez MD [address] [facility] [place] [address] PCP - General Family Medicine 12/12/22 documented as of this encounter
--- OUTSIDE RECORDS SUMMARY | 2024-11-28 09:55 | XMS_ITS | Encounter Summary ---
Author Organization [facility] Address [address] [place] [address] Care Team Providers Care Program Administrator Name Role Phone Radha Sanchez MD Primary Care Provider [phone] Encounter Details Date Type Department Care Team (Late st Contact Info) Description 04/28/2023 Clinisync Result Encounter [facility] External Department Unsolicited Sanjeev Lopez, DO [address] [place] [address] [address] [place], [place] [address] Social History Tobacco Use Types Packs/Day Years [...] Office Visit [facility] [address] [place] [phone] Georgi Carreon, DPMiles [address] [place], [place] [phone] 07/29/2025 3:00 PM EDT Office Visit [facility] [address] [facility] [phone] Sanjeev Lopez DO [address] [facility] [place] [address] documented as of this encounter Procedures Procedure Name Priority Date/Time Associated Diagnosis Comments MM TOMOSYNTHESIS SCREENING BI 04/28/2023 12:44 PM EST documented in this encounter Results * MM TOMOSYNTHESIS SCREENING BI (04/28/2023 12:44 PM EST) Anatomical Region Laterality Modality Other 04/28/2023 12:4 4 PM EST Narrative 04/28/2023 12:44 PM EST The [address] [address] Mammography Report Signed Patient: CHAR DUMONT MR#: [id number] : 1980 Acct:[id number] Age/Sex: 42 / F ADM Date: 04/28/23 Loc: MAMMO Attending Dr: Sanjeev Lopez D.O. Ordering Physician: Sanjeev Lopez D.O. Results: Date of Service: 04/28/23 Follow Up: Procedure(s): MM tomosynthesis screening BI Accession Number(s): [id number] cc: Radha Sanchez M.D.; Sanjeev Lopez D.O. Patient Name: CHAR DUMONT MR#: [id number] : 1980 Exam Date: 04/28/2023 Ordering Doctor: DR Sanjeev Lopez . RADIOLOGY REPORT PROCEDURE: MM TOMOSYNTHESIS SCREENING BI COMPARISON: MG MAMM DIAGNOSTIC 3D RAMA CAD, 04/29/2022. INDICATIONS: Screening Calculator Name NCI Breast Cancer Risk Assessment Tool 5 Year Breast Cancer Risk 0.50% Lifetime Breast Cancer Risk 9.00% Personal Breast Cancer No Personal Ovarian Cancer No Treatments None Family Cancers Grandmother-maternal with stomach cancer at age 65. LOCATION: [facility] BREAST COMPOSITION: Scattered areas fibroglandular density. FINDINGS: DIAGNOSTIC CATEGORY 0--INCOMPLETE: NEED ADDITIONAL IMAGING EVALUATION. The breasts are stable in overall size and fibroglandular configuration.Scattered benign-appearing lymph nodes are present. Scattered benign-appearing calcifications are present. RIGHT BREAST: No significant suspicious finding. LEFT BREAST: New 1.1 x 0.8 cm area of focal asymmetry lower inner quadrant, 7 o'clock position, mid to posterior breast. Spot compression and ultrasound follow-up is recommended. RECOMMENDATIONS: ADDITIONAL MAMMOGRAPHIC VIEWS REQUIRED: LEFT BREAST - spot compression ULTRASOUND: LEFT BREAST PLEASE NOTE: A NORMAL MAMMOGRAM DOES NOT EXCLUDE THE POSSIBILITY OF BREAST CANCER. A CLINICALLY SUSPICIOUS PALPABLE LUMP SHOULD BE BIOPSIED. Dictated by: Mj Silva MD on 04/28/2023 at 12:41 Approved by: Mj Silva MD on 04/28/2023 at 12:43 Dictated By: Mj Silva M.D. Signed By: 04/28/23 1244 DD/ 1244 TD/TT: Cycle Liaison: Procedure Note Radiology, Radiologist, - 04/28/2023 [place] [address] Mammography Report Signed Patient: CHAR DUMONT DMR#: [id number] : 1980Acct:[id number] Age/Sex: 42 / FADM Date: 04/28/23 Loc: MAMMO Attending Dr: Sanjeev Lopez D.O. Ordering Physician: Sanjeev Lopez D.O.Results: Date of Service: 04/28/23Follow Up: Procedure(s): MM tomosynthesis screening BI Accession Number(s): [id number] cc: Radha Sanchez M.D.; Sanjeev Lopez D.O. Patient Name: CHAR DUMONT MR#: [id number] : 1980 Exam Date: 04/28/2023 Ordering Doctor: DR Sanjeev Lopez . RADIOLOGY REPORT PROCEDURE: MM TOMOSYNTHESIS SCREENING BI COMPARISON: MG MAMM DIAGNOSTIC 3D RAMA CAD, 04/29/2022. INDICATIONS: Screening Calculator Name NCI Breast Cancer Risk Assessment Tool 5 Year Breast Cancer Risk 0.50% Lifetime Breast Cancer Risk 9.00% Personal Breast Cancer No Personal Ovarian Cancer No Treatments None Family Cancers Grandmother-maternal with stomach cancer at age 65. LOCATION: [facility] BREAST COMPOSITION: Scattered areas fibroglandular density. FINDINGS: DIAGNOSTIC CATEGORY 0--INCOMPLETE: NEED ADDITIONAL IMAGING EVALUATION. The breasts are stable in overall size and fibroglandular configuration.Scattered benign-appearing lymph nodes are present.Scattered benign-appearing calcifications are present. RIGHT BREAST: No significant suspicious finding. LEFT BREAST: New 1.1 x 0.8 cm area of focal asymmetry lower innerquadrant, 7 o'clock position, mid to posterior breast. Spot compression andultrasound follow-up is recommended. RECOMMENDATIONS: ADDITIONAL MAMMOGRAPHIC VIEWS REQUIRED: LEFT BREAST - spot compression ULTRASOUND: LEFT BREAST PLEASE NOTE: A NORMAL MAMMOGRAM DOES NOT EXCLUDE THE POSSIBILITY OFBREAST CANCER. A CLINICALLY SUSPICIOUS PALPABLE LUMP SHOULD BE BIOPSIED. Dictated by: Mj Silva MD on 04/28/2023 at 12:41 Approved by: Mj Silva MD on 04/28/2023 at 12:43 Dictated By: Mj Silva M.D. Signed By:04/28/23 1244 DD/ 1244 TD/TT: Cycle Liaison: us Sanjeev Jessica DO [facility] Final Result documented in this encounter Visit Diagnoses Not on filedocumented in this encounter Care Teams Program Administrator Relationship Specialty Start Date End Date Radha Sanchez MD [address] [place] [phone] PCP - General Family Medicine 12/12/22 documented as of this encounter
--- OUTSIDE RECORDS SUMMARY | 2024-11-28 09:55 | XMS_ITS | Encounter Summary ---
Author Organization [facility] Address [address] [facility] [place] [address] Care Team Providers Care Associate Sales Representative Name Role Phone Radha Sanchez MD Primary Care Provider [phone] Encounter Details Date Type Department Care Team (Late st Contact Info) Description 12/28/2023 Abstract [facility] [address] [facility] [address] Sanjeev Lopez DO [address] [facility] [place] [address] Social History Tobacco Use Types Packs/Day Years [...] Office Visit [facility] [address] [place] [phone] Georgi Carreon DPM [address] [place] [address] 07/29/2025 3:00 PM EDT Office Visit [facility] [address] [facility] [place] [address] Sanjeev Lopez DO [address] [facility] [place] [address] documented as of this encounter Visit Diagnoses Not on filedocumented in this encounter Care Teams Associate Sales Representative Relationship Specialty Start Date End Date Radha Sanchez MD [address] [facility] [place] [place] [address] PCP - General Family Medicine 12/12/22 documented as of this encounter
--- OUTSIDE RECORDS SUMMARY | 2024-11-28 09:55 | XMS_ITS | Encounter Summary ---
Author Organization [facility] Address [address] [place] [address] Care Team Providers Care Mate Ship Name Role Phone Radha Sanchez MD Primary Care Provider [phone] Encounter Details Date Type Department Care Team (Late st Contact Info) Description 04/10/2024 Abstract [facility] [address] [place] [address] Natalia Choi LPN Social History Tobacco [...] Office Visit [facility] [address] [place] [address] Georgi Carreon DPMiles [address] [place] [phone] 07/29/2025 3:00 PM EDT Office Visit [facility] [address] [facility] [place] [address] Sanjeev Lopez DO [address] [facility] [place] [address] documented as of this encounter Visit Diagnoses Not on filedocumented in this encounter Care Teams Mate Ship Relationship Specialty Start Date End Date Radha Sanchez MD [address] [facility] [place] [address] PCP - General Family Medicine 12/12/22 documented as of this encounter
--- OUTSIDE RECORDS SUMMARY | 2024-11-28 09:55 | XMS_ITS | Encounter Summary ---
Author Organization [facility] Address [id number] [address] [place] [address] Care Team Providers Care Casino Controller Name Role Phone Radha Sanchez MD Primary Care Provider [phone] Reason for Visit * Reason Comments Med Refill Encounter Details Date Type Department Care Team (Late st Contact Info) Description 12/23/2021 Refill [facility] [address] [facility] [address] [place] [address] Royal Boateng MD [address] [facility] [address] [place] [address] Social History Tobacco Use Types Packs/Day Years [...] have Coronavirus / COVID-19? No / Unsure 12/24/2021 9:57 AM EDT documented as of this encounter [...] documented as of this encounter Care Teams Casino Controller Relationship Specialty Start Date End Date Radha Sanchez MD [address] [place] [id number] PCP - General 03/13/23 documented as of this encounter
--- OUTSIDE RECORDS SUMMARY | 2024-11-28 09:55 | XMS_ITS | Clinical Summary ---
Author Organization [facility] Address [address] [place] [address] Care Team Providers Care Stationary Plant Operators Name Role Phone Radha Sanchez MD Primary Care Provider [phone] Allergies Active Allergy Reactions Criticality Noted Date Comments Topiramate Swelling Low 12/19/2013 Medications Alcohol Swabs (B-D SINGLE USE SWABS REGULAR) pads 024 Active Lancets (OneTouch Delica Plus [id number]) misc 024 Active MONOJECT 3CC SYRINGE 3 ML misc 024 Active glucose blood (OneTouch Verio) test stripIndications: Insulin resistance,Pre-di abetes Use as instructed 100 each 3 025 Active escitalopram (Lexapro) 10 MG tablet Take 10 mg by mouth in the morning. 025 Active losartan (Cozaar) 100 MG tablet Take 100 mg by mouth Daily 025 Active metoprolol succinate XL (Toprol-XL) 50 MG 24 hr tablet Take 50 mg by mouth 1 (one) time each day at the same time Active amLODIPine (Norvasc) 10 MG tablet Take 10 mg by mouth in the morning. 025 2025 Active Viloxazine HCl ER (Qelbree) 200 MG capsule sustained-release 24 hr Take 200 mg by mouth in the morning. 025 Active cyclobenzaprine (Flexeril) 10 MG tabletIndications :Muscle cramps Take 1 tablet (10 mg) by mouth 3 (three) times a day as needed for muscle spasms for up to 10 days 30 tablet 025 Active Mounjaro 12.5 MG/0.5ML solution auto-injectorIndi cations:Insulin resistance,Weight gain inject 0.5 milliliters UNDER THE SKIN ONCE WEEKLY 2 mL 3 025 Active ondansetron ODT (Zofran-ODT) 4 MG disintegrating tabletIndications :Nausea Dissolve one tablet on tongue EVERY 6 HOURS NEEDED FOR NAUSEA AND VOMITING 30 tablet 3 025 Active ondansetron ODT (Zofran-ODT) 4 MG disintegrating tabletIndications :Nausea DISSOLVE ONE TABLET UNDER THE TONGUE EVERY 6 HOURS NEEDED FOR NAUSEA AND VOMITING 30 tablet 2 025 2024 Discontinued nystatin (Mycostatin) 678648 UNIT/GM powderIndications :Skin irritation Apply topically 3 (three) times a day as needed for rash 30 g 1 025 2024 Active Problems Problem Noted Date Diagnosed Date Breast pain 10/06/2022 Chronic migraine without aur a, not intractable, without status migrainosus 10/06/2022 Frequent headaches 10/06/2022 Hallux valgus (acquired), left foot 10/06/2022 Insulin resistance 10/06/2022 Labial cyst 10/06/2022 Menorrhagia 10/06/2022 Morbid obesity 10/06/2022 Polycystic ovaries 10/06/2022 Weight gain 10/06/2022 Encounters Date Type Department Care Team Description 11/16/2024 Refill [facility] [place] [facility] [address] [place] [address] [place] [address] Sanjeev Lopez, Nausea 10/29/2024 9:25 AM EDT Ancillary Procedure [facility] [address] [place] [address] 10/29/2024 9:00 AM EDT Office Visit [facility] [address] [place] [address] Georgi Carreon, NOE S/P foot surgery (Primary Dx); Left foot pain 10/29/2024 Bamboo flowsheet [facility] [address] [place] [address] Georgi Carreon DPM 10/29/2024 Travel 10/28/2024 Travel 10/25/2024 Refill [facility] [address] [facility] [place] [address] Sanjeev Lopez DO Skin irritation 09/28/2024 Refill [facility] [address] [facility] [place] [address] Sanjeev Lopez, Insulin resistance; Weight gain 09/17/2024 10:00 AM EDT Ancillary Procedure [facility] [address] [place] [address] 09/17/2024 9:45 AM EDT Office Visit [facility] [address] [place] [address] Georgi Carreon DPM S/P foot surgery (Primary Dx); Left foot pain 09/17/2024 Bamboo flowsheet [facility] [address] [place] [address] Georgi Carreon DPM 09/17/2024 Travel 09/16/2024 Travel 09/11/2024 Travel 09/04/2024 8:30 AM EDT Office Visit [facility] [address] [place] [address] Georgi Carreon, NOE S/P foot surgery (Primary Dx); Left foot pain 09/04/2024 Bamboo flowsheet [facility] [address] [place] [address] Georgi Carreon DPM 09/04/2024 Travel 09/03/2024 Travel from Last 3 Months Family History Medical History Relation Name Comments Alcohol abuse Father Tyrese Depression Father Tyrese Drug abuse Father Tyrese Cancer Maternal Grandfather . Drug abuse Maternal Grandfather . Heart disease Maternal Grandfather . Hypertension Maternal Grandfather . Stroke Maternal Grandfather . Thyroid disease Maternal Grandmother . Vision loss Maternal Grandmother . Asthma Mother Kayla Diabetes Paternal Grandfather . Relation Name Status Comments Daughter (2) Alive Father Tyrese Maternal Grandfather . Maternal Grandmother . Alive Mother Kayla Alive Paternal Grandfather . Son (3) Alive Social History Tobacco Use Types Packs/Day Years Used Date Smoking Tobacco: Never Smokeless Tobacco: Never Tobacco Cessation:Counseling Given: Not Answered Alcohol Use Standard Drinks/Week Comments Not Currently [...] Orientation Straight 09/21/2022 8: 59 AM EDT Last Filed Vital Signs Vital Sign Reading Time Taken Comments Blood Pressure 128/82 07/22/2024 2:12 PM EDT Pulse 75 08/02/2023 8:52 AM EDT Temperature 36.5 C (97.7 F) 08/02/2023 8:52 AM EDT Respiratory Rate 16 08/02/2023 8:52 AM EDT Oxygen Saturation 99% 08/02/2023 8:52 AM EDT Inhaled Oxygen Concentration - - Weight 86.2 kg (190 lb) 10/29/2024 8:55 AM EDT Height 165.1 cm (5' 5 ) 10/29/2024 8:55 AM EDT Body Mass Index 31.62 10/29/2024 8:55 AM EDT Plan of Treatment Upcoming Encounters Date Type Department Care Team (Late st Contact Info) Description 01/29/2025 9:00 AM EDT Office Visit [facility] [address] [place] [address] Georgi Carroen, DPM [address] [place], [place] [phone] 07/29/2025 3:00 PM EDT [place] [address] Sanjeev Lopez, DO [address] [facility] [place] [address] Procedures Procedure Name Priority Date/Time Associated Diagnosis Comments XR FOOT 3+ VIEWS LEFT Routine 10/29/2024 9:24 AM EDT S/P foot surgery Left foot pain XR FOOT 3+ VIEWS LEFT Routine 09/17/2024 9:55 AM EDT S/P foot surgery Left foot pain from Last 3 Months Results * XR foot 3+ views left (10/29/2024 9:24 AM EDT) Only the most recent of2 resultswithin the time period is included. Anatomical Region Laterality Modality Lower Extremities, Foot Left Radiogra phic Imaging Narrative 10/29/2024 10:45 AM EDT Imaging Result: AP, medial oblique, lateral views are weight-bearing. There is still some mild joint space visible at the 1st TMT but otherwise hardware is intact without signs of lucency or back out. Orthopedic implants in place in the 5th metatarsal and 2nd metatarsal. Second toe remains rectus. There is some very slight lateral deviation of the sesamoids and very light lateral deviation of the hallux at the MTP but otherwise deformity correction is holding well. Georgi Carreon DPM IMG XR PROCEDURES Final Res ult from Last 3 Months Insurance BS Care Teams Stationary Plant Operators Relationship Specialty Start Date End Date Radha Sanchez MD [address] [place] [address] PCP - General Family Medicine 12/12/22
--- OUTSIDE RECORDS SUMMARY | 2024-11-28 09:55 | XMS_ITS | Encounter Summary ---
Author Organization [facility] Address [address] [place] [address] Care Team Providers Care Ecologist Name Role Phone Radha Sanchez MD Primary Care Provider [phone] Encounter Details Date Type Department Care Team (Late st Contact Info) Description 03/13/2024 Clinisync Result Encounter [facility] External Department Unsolicited Sanjeev Lopez, DO [address] [facility] [address] [place], [place] [phone] Social History Tobacco Use Types Packs/Day Years [...] as of this encounter Miscellaneous Notes * Result Encounter Note - Tatum Atkinson LPN - 03/13/2024 3:00 PM EST Pt notified and was told we could do the BRCA referral documented in this encounter Plan of Treatment Upcoming Encounters Date Type Department Care Team (Late st Contact Info) Description 01/29/2025 9:00 AM EDT Office Visit [facility] [address] [place] [phone] Georgi Carreon, DPM [address] [place], [place] [address] 07/29/2025 3:00 PM EDT Office Visit [facility] [place] [address] [facility] [place] [address] Sanjeev Lopez, DO [address] [facility] [address] [place], [place] [phone] documented as of this encounter Procedures Procedure Name Priority Date/Time Associated Diagnosis Comments MM TOMOSYNTHESIS DIAGNOSTIC BI 03/13/2024 2:58 PM EST documented in this encounter Results * MM TOMOSYNTHESIS DIAGNOSTIC BI (03/13/2024 2:58 PM EST) Anatomical Region Laterality Modality Other 03/13/2024 2:58 PM EST Narrative 03/13/2024 2:59 PM EST [address] [address] Mammography Report Signed Patient: CHAR DUMONT MR#: [id number] : 1980 Acct:[id number] Age/Sex: 43 / F ADM Date: 03/13/24 Loc: MAMMO Attending Dr: Sanjeev Lopez D.O. Ordering Physician: Sanjeev Lopez D.O. Results: Date of Service: 03/13/24 Follow Up: Procedure(s): MM tomosynthesis diagnostic BI Accession Number(s): [id number] cc: Radha Sanchez M.D.; Sanjeev Lopez D.O. Patient Name: CHAR DUMONT MR#: [id number] : 1980 Exam Date: 03/13/2024 Ordering Doctor: [...] at age 67. LOCATION: The [facility] BREAST COMPOSITION: There are scattered areas [...] Signed By: 03/13/24 1459 DD/ 1458 TD/TT: Paint Tinter: Procedure Note Radiology, Radiologist, - 03/13/2024 [place] [address] Mammography Report Signed Patient: CHAR DUMONT [facility]#: [id number] : 1980Acct:[id number] Age/Sex: 43 / FADM Date: 03/13/24 Loc: MAMMO Attending Dr: Sanjeev Lopez D.O. Ordering Physician: Jessica,Sanjeev D.O.Results: Date of Service: 03/13/24Follow Up: Procedure(s): MM tomosynthesis diagnostic BI Accession Number(s): [id number] cc: Radha Sanchez M.D.; Sanjeev Lopez D.O. Patient Name: CHAR DUMONT MR#: [id number] : 1980 Exam Date: 03/13/2024 Ordering Doctor: [...] at age 67. LOCATION: The [facility] BREAST COMPOSITION: There are scattered areas [...] M.D. Signed By:03/13/24 1459 DD/ 1458 TD/TT: Paint Tinter: us Sanjeev Jessica DO [facility] Final Result documented in this encounter Visit Diagnoses Not on filedocumented in this encounter Care Teams Ecologist Relationship Specialty Start Date End Date Radha Sanchez MD [address] [place] [address] PCP - General Family Medicine 12/12/22 documented as of this encounter
--- OUTSIDE RECORDS SUMMARY | 2024-11-28 09:55 | XMS_ITS | Encounter Summary ---
Author Organization [facility] Address [address] [facility] [place] [address] Care Team Providers Care Baseball Glove Stuffer Name Role Phone Radha Sanchez MD Primary Care Provider [phone] Encounter Details Date Type Department Care Team (Late st Contact Info) Description 04/10/2024 Abstract [facility] [address] [place] [address] Natalia Choi LPN Social History Tobacco [...] Office Visit [facility] [address] [place] [address] Georgi Carreon DPMiles [address] [place] [phone] 07/29/2025 3:00 PM EDT Office Visit [facility] [address] [facility] [place] [address] Sanjeev Lopez DO [address] [facility] [place] [address] documented as of this encounter Visit Diagnoses Not on filedocumented in this encounter Care Teams Baseball Glove Stuffer Relationship Specialty Start Date End Date Radha Sanchez MD [address] [place] [phone] PCP - General Family Medicine 12/12/22 documented as of this encounter
--- OUTSIDE RECORDS SUMMARY | 2024-11-28 09:55 | XMS_ITS | Encounter Summary ---
Author Organization [facility] Address [address] [facility] [place] [address] Care Team Providers Care Low Emission Automobile Designer Name Role Phone Radha Sanchez MD Primary Care Provider [phone] Encounter Details Date Type Department Care Team (Late st Contact Info) Description 08/06/2024 Orders Only [facility] [address] [place] [address] Lydia Keenan LPN [address] [place] [phone] Social History Tobacco Use Types Packs/Day Years [...] Office Visit [facility] [address] [place] [address] Georgi Carreon DPM [address] [place], [place] [phone] 07/29/2025 3:00 PM EDT Office Visit [facility] [address] [facility] [place] [address] Sanjeev Lopez DO [address] [facility] [place] [address] documented as of this encounter Procedures Procedure Name Priority Date/Time Associated Diagnosis Comments PAP SMEAR Routine 07/22/2024 12:00 AM EDT documented in this encounter Results * Pap Smear (07/22/2024 12:00 AM EDT) Swab Cervical swab / Unknown Jessica Nurse [facility] CYTOLOGY ORDERABLES Final Result EXTERNAL LAB documented in this encounter Visit Diagnoses Not on filedocumented in this encounter Care Teams Low Emission Automobile Designer Relationship Specialty Start Date End Date Radha Sanchez MD [address] [facility] [place] [address] PCP - General Family Medicine 12/12/22 documented as of this encounter
--- OUTSIDE RECORDS SUMMARY | 2024-11-28 09:55 | XMS_ITS | Encounter Summary ---
Author Organization [facility] Address [address] [place] [address] Care Team Providers Care Road Patcher Name Role Phone Radha Sanchez MD Primary Care Provider [phone] Encounter Details Date Type Department Care Team (Late st Contact Info) Description 05/10/2023 Clinisync Result Encounter NOM[facility] External Department Unsolicited Sanjeev Lopez, DO [address] [place] [address] [address] [place], [place] [phone] Social History Tobacco Use Types Packs/Day Years [...] Office Visit [facility] [address] [place] [phone] Georgi Carreon, DPMiles [address] [place], [place] [address] 07/29/2025 3:00 PM EDT Office Visit [facility] [address] [facility] [place] [address] Sanjeev Lopez DO [address] [facility] [place] [address] documented as of this encounter Procedures Procedure Name Priority Date/Time Associated Diagnosis Comments MM DIAGNOSTIC MAMMO UNILAT LT 05/10/2023 8:42 AM EST [facility] VITAMIN D 25 [place] Routine 05/10/2023 7 :48 AM EST [facility] GLUCOSE BLOOD Routine 05/10/2023 7:4 8 AM EST MLR HEMOGLOBIN A1C Routine 05/10/2023 7: 48 AM EST [facility] FERRITIN Routine 05/10/2023 7:48 AM EST ALL THYROXINE (T4) FREE Routine 05/10/2023 7:48 AM EST ALL THYROXINE (T4) Routine 05/10/2023 7: 48 AM EST ALL THYROID STIM HORMONE Routine 05/10/2023 7:48 AM EST ALL T3 FREE Routine 05/10/2023 7:48 AM EST documented in this encounter Results * MM DIAGNOSTIC MAMMO UNILAT LT (05/10/2023 8:42 AM EST) Anatomical Region Laterality Modality Other 05/10/2023 8:42 AM EST Narrative 05/10/2023 8:43 AM EST The [address] [address] Mammography Report Signed Patient: CHAR DUMONT MR#: [id number] : 1980 Acct:[id number] Age/Sex: 42 / F ADM Date: 05/10/23 Loc: MAMMO Attending Dr: Sanjeev Lopez D.O. Ordering Physician: Sanjeev Lopez D.O. Results: Date of Service: 05/10/23 Follow Up: Procedure(s): MM diagnostic mammo unilat LT Accession Number(s): [id number] cc: Radha Sanchez M.D.; Sanjeev Lopez D.O. Patient Name: CHAR DUMONT MR#: [id number] : 1980 Exam Date: 05/10/2023 Ordering Doctor: [...] stomach cancer at age 67. LOCATION: The [facility] BREAST COMPOSITION: Scattered areas fibroglandular density. FINDINGS: [...] Dictated By: Mj Silva M.D. Signed By: 05/10/2343 DD/ TD/TT: Group Work Program Director: Procedure Note Radiology, Radiologist, - 05/10/2023 [place] [address] Mammography Report Signed Patient: CHAR DUMONT DMR#: [id number] : 1980Acct:[id number] Age/Sex: 42 / FADM Date: 05/10/23 Loc: MAMMO Attending Dr: Sanjeev Lopez D.O. Ordering Physician: Sanjeev Lopez D.O.Results: Date of Service: 05/10/23Follow Up: Procedure(s): MM diagnostic mammo unilat LT Accession Number(s): [id number] cc: Radha Sanchez M.D.; Sanjeev Lopez D.O. Patient Name: CHAR DUMONT MR#: [id number] : 1980 Exam Date: 05/10/2023 Ordering Doctor: [...] stomach cancer at age 67. LOCATION: The [facility] BREAST COMPOSITION: Scattered areas fibroglandular density. FINDINGS: [...] 08:42 Dictated By: Mj Silva M.D. Signed By:05/10/23 0843 DD/ 0842 TD/TT: Group Work Program Director: Sanjeev Jessica DO [facility] Final Result * ALL THYROXINE (T4) FREE (05/10/2023 7:48 AM EST) FREE T4 1.29 0.76 - 1.46 ng/dL TB 05/10/2023 7:48 AM EST 05/10/2023 7:51 AM EST Narrative [facility] - 05/10/2023 10:22 AM EST Sanjeev Jessica DO [facility] Final Result [facility] * [facility] VITAMIN D 25 [place] (05/10/2023 7:48 AM EST) Pathologist [facility] VITAMIN D 29.0 ng/mL [facility] Comment: <20 ng/mL Vit D deficient 20-<30 ng/mL Vit D insufficient 30-100 ng/mL Vit D sufficient >100 ng/mL Potential Toxicity 05/10/2023 7:48 AM EST 05/10/2023 7:51 AM EST Narrative [facility] - 05/10/2023 10:22 AM EST [facility] Jessica DO [facility] Final Result [facility] * [facility] FERRITIN (05/10/2023 7:48 AM EST) Pathologist [facility] FERRITIN 40.0 8.0 - 252.0 ng/mL TB 05/10/2023 7:48 AM EST 05/10/2023 7:51 AM EST Narrative [facility] - 05/10/2023 10:22 AM EST Sanjeev Jessica DO [facility] Final Result [facility] * MLR HEMOGLOBIN A1C (05/10/2023 7:48 AM EST) Pathologist [facility] GLYCOHEMOGLOBIN A1C 4.9 4.5 - 6.2 % [facility] Comment: ADA RECOMMENDED LIMIT 4.0 - 6.0 ADA THERAPEUTIC TARGET < 7.0 ACTION SUGGESTED > 7.0 ESTIMATED AVERAGE GLUCOSE 94 mg/dL TB 05/10/2023 7:48 AM EST 05/10/2023 7:51 AM EST Narrative [facility] - 05/10/2023 9:33 AM EST Sanjeev Jessica DO [facility] Final Result Performing Organization Address [facility]/ZIP Co de Phone Number [facility] * ALL THYROID STIM HORMONE (05/10/2023 7:48 AM EST) Pathologist [facility] THYROID STIMULATING HORMONE 1.735 0.358 - 3.740 uIU/mL TB 05/10/2023 7:48 AM EST 05/10/2023 7:51 AM EST Narrative [facility] - 05/10/2023 9:02 AM EST Yi Fang Educationo DO [facility] Final Result Performing Organization Address [facility] Co de Phone Number [facility] * ALL THYROXINE (T4) (05/10/2023 7:48 AM EST) Pathologist [facility] T4 THYROXINE 9.00 4.80 - 13.90 ug/dL TB 05/10/2023 7:48 AM EST 05/10/2023 7:51 AM EST Narrative [facility] - 05/10/2023 9:02 AM EST Yi Fang Educationo DO [facility] Final Result Performing Organization Address [facility] Co de Phone Number [facility] * ALL T3 FREE (05/10/2023 7:48 AM EST) Pathologist [facility] FREE T3 2.67 2.18 - 3.98 pg/mL TB 05/10/2023 7:48 AM EST 05/10/2023 7:51 AM EST Narrative [facility] - 05/10/2023 9:02 AM EST us Sanjeev Jessica DO [facility] Final Result Performing Organization Address [facility]/ZIP Co de Phone Number [facility] * TBH GLUCOSE BLOOD (05/10/2023 7:48 AM EST) GLUCOSE 81 74 - 106 mg/dL TB[facility] 05/10/2023 7:48 AM EST 05/10/2023 7:51 AM EST Narrative [facility] - 05/10/2023 9:02 AM EST us Sanjeev Jessica DO [facility] Final Result Performing Organization Address [facility] Co de Phone Number [facility] documented in this encounter Visit Diagnoses Not on filedocumented in this encounter Care Teams Road Patcher Relationship Specialty Start Date End Date Radha Sanchez MD [address] [place] [address] PCP - General Family Medicine 12/12/22 documented as of this encounter
--- OUTSIDE RECORDS SUMMARY | 2024-11-28 09:55 | XMS_ITS | Encounter Summary ---
Author Organization [facility] Address [address] [facility] [place] [address] Care Team Providers Care Professor Of Physical Education Name Role Phone Radha Sanchez MD Primary Care Provider [phone] Encounter Details Date Type Department Care Team (Late st Contact Info) Description 03/22/2024 Abstract [facility] [address] [place] [address] Sanjeev Lopez DO [address] [place] [address] Social History Tobacco Use Types Packs/Day Years [...] Office Visit [facility] [address] [place] [phone] Georgi Carreon DPM [address] [place] [address] 07/29/2025 3:00 PM EDT Office Visit [facility] [address] [place] [address] Sanjeev Lopez DO [address] [place] [address] documented as of this encounter Visit Diagnoses Not on filedocumented in this encounter Care Teams Professor Of Physical Education Relationship Specialty Start Date End Date Radha Sanchez MD [address] [facility] [place] [address] PCP - General Family Medicine 12/12/22 documented as of this encounter
--- OUTSIDE RECORDS SUMMARY | 2024-11-28 09:55 | XMS_ITS | Encounter Summary ---
Author Organization [facility] Address [address] [facility] [place] [address] Care Team Providers Care Jockey Valet Name Role Phone Radha Sanchez MD Primary Care Provider [phone] Encounter Details Date Type Department Care Team (Late st Contact Info) Description 09/18/2023 Abstract [facility] [address] [place] [address] Sanjeev Lopez DO [address] [place] [address] Social History Tobacco Use Types Packs/Day Years [...] Office Visit [facility] [address] [place] [phone] Georgi Carreon DPM [address] [place], [place] [id number] 07/29/2025 3:00 PM EDT Office Visit [facility] [address] [address] Sanjeev Lopez DO [address] [place] [address] documented as of this encounter Visit Diagnoses Not on filedocumented in this encounter Care Teams Jockey Valet Relationship Specialty Start Date End Date Radha Sanchez MD [address] [place] [facility] [address] PCP - General Family Medicine 12/12/22 documented as of this encounter
--- OUTSIDE RECORDS SUMMARY | 2024-11-28 09:55 | XMS_ITS | Encounter Summary ---
Author Organization [employer] [employer] Address [id number] [address] [place] [address] Care Team Providers Care Vocational Training Instructor Name Role Phone Radha Sanchez MD Primary Care Provider [phone] Encounter Details Date Type Department Care Team (Late st Contact Info) Description 09/14[facility]2021 [facility] [address] [phone] Willa Stevens Social History Tobacco Use Types [...] * Telephone Encounter - Willa Mahan - 09/14/2021 10:02 AM EDT Marcie from [employer] called regarding lumbar and cervical MRI's. They are scheduled for 09/17, but they are being denied and a peer to peer needs to be set up. Call: [phone] * Telephone Encounter - Willa Mahan - 09/14/2021 10:02 AM EDT Called insurance company to set up peer to peer. Peer to peer scheduled for 09/15 at 2:30pm. Primary phone is the office, secondary phone is [employer]. Scheduled blocked off. * Telephone Encounter - JOSSELYN Melendez - 09/14/2021 10:02 AM EDT Peer to peer completed. Auth # [id number] MRIs approved, [employer] notified. Message sent to patient via Cell[employer] * Telephone Encounter - Willa Mahan - 09/14/2021 10:02 AM EDT Noted. documented in this encounter Plan of Treatment Not on file documented as of this encounter Visit Diagnoses Not on filedocumented in this encounter Additional Health Concerns Assessment Noted Time A Body Mass Index follow-up plan has been documented for the patient 09/03/2021 4:19 PM EDT documented as of this encounter Care Teams Vocational Training Instructor Relationship Specialty Start Date End Date Radha Sanchez MD [address] [place] [address] PCP - General 03/13/23 documented as of this encounter
--- OUTSIDE RECORDS SUMMARY | 2024-11-28 09:55 | XMS_ITS | Encounter Summary ---
Author Organization [facility] Address [address] [facility] [place] [place] [address] Care Team Providers Care Chairman President And Chief Executive Officer Name Role Phone Radha Sanchez MD Primary Care Provider [phone] Reason for Visit * Reason Comments Med Refill Encounter Details Date Type Department Care Team (Late st Contact Info) Description 11/16/2024 Refill [facility] [address] [place] [phone] Sanjeev Lopez DO [address] [facility] [address] [place], [facility] Nausea Social History Tobacco Use Types Packs/Day Years [...] Office Visit [facility] [address] [place] [phone] Georgi Carreon, DPM [address] [place] [address] 07/29/2025 3:00 PM EDT Office Visit [facility] [address] [place] [address] Sanjeev Lopez DO [address] [facility] [address] [place] [address] documented as of this encounter Visit Diagnoses Diagnosis Nausea Nausea alone documented in this encounter Care Teams Chairman President And Chief Executive Officer Relationship Specialty Start Date End Date Radha Sanchez MD [address] [facility] [place] [address] PCP - General Family Medicine 12/12/22 documented as of this encounter
--- OUTSIDE RECORDS SUMMARY | 2024-11-28 09:55 | XMS_ITS | Encounter Summary ---
Author Organization [facility] Address [address] [place] [facility] [address] Care Team Providers Care Health Director Name Role Phone Radha Sanchez MD Primary Care Provider [phone] Encounter Details Date Type Department Care Team (Late st Contact Info) Description 10/05/2022 Abstract [facility] [address] [place] [address] Sanjeev Lopez DO [address] [facility] [place] [address] Social History Tobacco Use Types Packs/Day Years Used Date Smoking Tobacco: Never Assessed Comments Unknown Sex and Gender Information Value Date Recorded Sex Assigned at Female 09/21/2022 8:59 AM EDT Legal Sex Female 7:26 PM EDT Gender Identity Female 09/21/2022 8:59 AM EDT Sexual Orientation Straight 09/21/2022 8: 59 AM EDT COVID-19 Exposure Response Date Recorded In the last 10 days, have yo u been in contact with someone who was confirmed or suspected to have Coronavirus/COVID-19? No / Unsure 09/21/2022 9:03 AM EDT documented as of this encounter Plan of Treatment Upcoming Encounters Date Type Department Care Team (Late st Contact Info) Description 01/29/2025 9:00 AM EDT Office Visit [facility] [address] [place] [phone] Georgi Carreon, NOE [address] [place] [address] 07/29/2025 3:00 PM EDT Office Visit [facility] [address] [place] [address] Sanjeev Lopez DO [address] [facility] [place] [address] documented as of this encounter Visit Diagnoses Not on filedocumented in this encounter Care Teams Health Director Relationship Specialty Start Date End Date Radha Sanchez MD [address] [facility] [place] [address] PCP - General Family Medicine 12/12/22 documented as of this encounter
--- NOTE | 2024-11-28 10:02 | PM.CN ---
Consult Note: HPI Data of Consult Patient: known to practice within the last 3 years Requesting Physician: Minnie Johnson NP Primary Care Provider: Radha Sanchez MD Consult Narrative Reason for consult: low back pain Narrative: Karuna Dumont a pleasant 43 year old female presents for evaluation and management of chronic low back pain. last evaluated 12/25 after Left L4-5, l5-S1 transforaminal epidural steroid injection which provided >50% improvement greater than 8 months. Since that time pt has been engaged in PT directed HEP > 6 weeks without benefit, failed tylenol and motrin. No new injury or falls. pain today 4/10 increasing to 10/10 at times. pt concerned with moderate to severe pain as she is traveling/camping this weekend for her birthday. cc:: CC: Minnie Johnson NP Review of Systems ROS Musculoskeletal Reports: back pain and extremity pain [facility] Medical History (Updated 11/28/24 @ 10:09 by Minnie Johnson NP) DDD (degenerative disc disease) Back pain ?M54.9 - Dorsalgia, unspecified (ICD-10) Anemia ?D64.9 - Anemia, unspecified (ICD-10) Panic attacks ?F41.0 - Panic disorder [episodic paroxysmal anxiety] (ICD-10) Abnormal uterine bleeding ?N93.9 - Abnormal uterine and vaginal bleeding, unspecified (ICD-10) Menorrhagia ?N92.0 - Excessive and frequent menstruation with regular cycle (ICD-10) Pelvic pain ?R10.2 - Pelvic and perineal pain (ICD-10) Diverticulosis ?K57.90 - Diverticulosis of intestine, part unspecified, without perforation or abscess without bleeding (ICD-10) IBS (irritable bowel syndrome) ?K58.9 - Irritable bowel syndrome without diarrhea (ICD-10) PCOS (polycystic ovarian syndrome) ?E28.2 - Polycystic ovarian syndrome (ICD-10) Cervical cerclage suture present ?O34.30 - Maternal care for cervical incompetence, unspecified trimester (ICD-10) White coat syndrome with high blood pressure without hypertension ?R03.0 - Elevated blood-pressure reading, without diagnosis of hypertension (ICD-10) Migraines ?G43.909 - Migraine, unspecified, not intractable, without status migrainosus (ICD-10) Metabolic syndrome ?E88.810 - Metabolic syndrome (ICD-10) Insulin resistance ?E88.819 - Insulin resistance, unspecified (ICD-10) History of PCOS ?Z87.42 - Personal history of other diseases of the female genital tract (ICD-10) ADHD ?F90.9 - Attention-deficit hyperactivity disorder, unspecified type (ICD-10) Surgical History History of myringotomy ?Z98.890 - Other specified postprocedural states (ICD-10) History of appendectomy ?Z90.49 - Acquired absence of other specified parts of digestive tract (ICD-10) History of breast biopsy ?Z98.890 - Other specified postprocedural states (ICD-10) S/P breast biopsy, left ?Z98.890 - Other specified postprocedural states (ICD-10) H/O tubal ligation ?Z98.51 - Tubal ligation status (ICD-10) H/O section ?Z98.891 - History of uterine scar from previous surgery (ICD-10) History of cervical cerclage ?Z98.890 - Other specified postprocedural states (ICD-10) Status post appendectomy ?Z90.49 - Acquired absence of other specified parts of digestive tract (ICD-10) Hx of cholecystectomy ?Z90.49 - Acquired absence of other specified parts of digestive tract (ICD-10) Family History Other Cancer Delayed recovery from anesthesia Family history of diabetes mellitus Family history of myocardial infarction Social History Within the past year, how often did you have a drink containing alcohol: never Score interpretation: A score less than 3 is consistent with normal alcohol consumption. Smoking status: Never smoker Non-prescribed substance use: denies use Highest level of school completed/degree received: some college, no degree Meds Home Medications and Allergies Home Medications ?Medication ?Instructions ?Recorded ?Confirmed ?Type dextroamphetamine-amphetamine 20 20 mg PO QNOON hyperactivity 05/10/23 12/22/23 History mg tablet (Adderall) ibuprofen 200 mg tablet (Advil) 800 mg PO TID-QID PRN pain 05/10/23 12/22/23 History dextroamphetamine-amphetamine ER 30 mg PO QAM 12/12/23 12/22/23 History 30 mg 24hr capsule,extend release tirzepatide 10 mg/0.5 mL 10 mg subcut QWEEK 12/12/23 12/22/23 History subcutaneous pen injector (Mounjaro) Allergies Allergy/AdvReac Type Severity Reaction Status Date / Time adhesive tape Allergy Rash Verified 12/12/23 11:11 topiramate Allergy eyeballs Verified 12/12/23 11:11 feel like hard boiled eggs Exam Constitutional Documenting provider has reviewed patient's vital signs: yes Common normals: no apparent distress, oriented x3, healthy appearing, alert and well nourished General appearance: cooperative HENMT Common normals: normocephalic, hearing grossly normal bilaterally and moist oral mucous membranes Head and scalp: normocephalic Eye Common normals: PERRL Pupil: PERRL Neck & C-Spine Common normals: full ROM General: normal visual inspection Chest Common normals: inspection of chest normal Respiratory Common normals: normal respiratory effort, no retractions and no use of accessory muscles Back & Pelvis Lumbar spine/lower back: ROM limited, pain with ROM, lumbar spinal tenderness and straight leg raise positive left Sacroiliac joints: SI joint(s) abnormal Other: decreased sensation left L4,5,S1 strength 4/5 in BLE left sij positive renae(patricks), gaenslens, thigh thrust, compression test Neuro Common normals: oriented x3 Sensorium/orientation: alert Psych Common normals: mental status grossly normal, thought process normal, cooperative, affect normal, speech normal and activity/motor behavior normal Speech: normal speech Thought process: normal thought process Results Additional Findings Additional findings: If on a controlled substance or opioids, I have checked an [place] report on this patient and there are no aberrancies noted in the prescribing history.??If on a controlled substance or opioid a drug screen was completed and reviewed within the last year, and if there has not been a drug screen completed we ordered one today to monitor higher risk, state monitored pain medication use. As part of providing excellent, safe, comprehensive care, the following was completed at our patient's visit: 1. A medication reconciliation and review to ensure accurate knowledge of current/active medications, including asking our patients to inform us about any ogll-ciy-vljwgyh medications or herbal remedies/nutritional supplements/alternative remedies. 2. A review to specifically ensure our patients have had annual screening for screening for depression, screening for tobacco use, and screening for unhealthy alcohol use. For concerning screenings had a discussion with the patient, provided patient education, and recommended follow-up with primary care provider when appropriate. If patient noted with a risk of falling, they received education on strength, gait, and balance training to prevent future risk of falling. Portions of this note may have been carried over from the previous visit and updated as appropriate. Please note this office utilizes paper charting in addition to the electronic medical record. A list of current medications, vitals, and PMH is available there as the clinical staff outside of myself do not have access to [employer] charting during the clinic day operations. As part of providing quality comprehensive care the current medications, vitals, and PMH were reviewed in the paper chart. Assessment and Plan Assessment and Plan (1) Lumbar stenosis with neurogenic claudication: Assessment and Plan: The patient has had over 3 months of moderate to severe low back and LLE pain with functional impairment and inadequate response to conservative care including NSAIDS (unless there are contraindication such as concurrent blood thinners), multiple oral or topical pain medications, and home exercise program/physical therapy.? Patient has completed >6 weeks of guided home exercise program and/or formal physical therapy program without relief of their symptoms.? I have reviewed the imaging of the lumbar spine and no red flags were identified.? The Oswestry Disability Index was completed, and the patient scored a 48%.? We discussed the risks and benefits of the procedure with the patient, and we are NOT planning on using sedation as outlined in the guidelines from Medicare unless there is a documented reason that sedation would be strongly recommended.?? ?The procedure will be completed with fluoroscopic guidance.? (2) Lumbar disc displacement without myelopathy: (3) Sacroiliitis: Plan per pt request will prescribe medrol dose pack due to significant pain unresponsive to tylenol and NSAIDs, cannot take muscle relaxers due to migraines can repeat left L4-5 L5-S1 TFESI under fluoroscopy as prior injection provided >50% improvement greater than 3 months continue HEP as tolerated f/u 2 weeks after CARLO
--- OUTSIDE RECORDS SUMMARY | 2024-11-28 10:12 | XMS_ITS | CCD ---
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 Name Role Phone Laura SÁNCHEZ, Johnathon Primary Care Provider [phone] JESSICA ., DR ROMERO Admitting Unavailable JESSICA ., DR ROMERO Attending Unavailable REQUEST, DR NONE LISTED Primary Care Unavaila ble JESSICA ., DR ROMERO Consulting Unavailable [employer] Unavailable JESSICA ., DR ROMERO [...] TEO THOMAS Attending Unavailable Johnathon Winter Unavailable Scottie Lyn Unavailable Johnathon Winter MD Primary Care Provider MD Tee Peterson Attending Provider [phone] ROHIT LARKIN Attending Unavailable JOHNATHON WINTER Referring Unavailable JOHNATHON WINTER Primary Care Unavailable JOHNATHON WINTER Referring Unavailable JOHNATHON WINTER Primary Care Unavailable KAL MARTINEZ Attending Unavailable ROHIT LARKIN Attending Unavailable ASMITA MONTGOMERY Referring Unavailable JOHNATHON WINTER Primary Care Unavailable eFlicia SÁNCHEZ, Bhavin Primary Care Unavailable Miguel SÁNCHEZ, [...] Care Unavailable DO Sanjeev Lopez Attending Provider [phone] Tee Peterson Admitting Unavailable Tee Peterson Attending Unavailable Sanjeev Lopez Attending Unavailable Sanjeev Lopez Admitting Unavailable WINTER, JOHNATHON E Referring Unavailable WINTER, JOHNATHON E Primary Care Unavailable PALAKODEMERRY, SEBASTIEN Admitting Unavailable PALAKOKIM ALCANTARAATH Attending Unavailable PALAKODETI SEBASTIEN Referring Unavailable WINTER, JOHNATHON E Primary Care Unavailable FIDEL MARTINEZ Attending Unavailable WINTER, JOHNATHON E Primary Care Unavailable Johnathon Winter MD Primary Care Provider [phone] Winter, Johnathon E Primary Care Unavailable KELI Resendez Attending Unavailable KELI Resendez Admitting Unavailable Winter, Johnathon E Primary Care Unavailable Santy Mckeon Attending Unavailable Santy Mckeon Admitting Unavailable Winter, Johnathon E Primary Care Unavailable Johnathon Winter MD Primary Care Provider Johnathon Winter MD Primary Care Provider Johnathon Winter MD Primary Care Provider Johnathon Winter MD Primary Care Provider [phone] JUDI ORTEGA Attending Unavailable WINTER, JOHNATHON E Referring Unavailable WINTER, JOHNATHON E Primary Care Unavailable JUDI ORTEGA Attending Unavailable WINTER, JOHNATHON E Referring Unavailable WINTER, JOHNATHON E Primary Care Unavailable JUDI ORTEGA Attending Unavailable WINTER, JOHNATHON E Referring Unavailable WINTER, JOHNATHON E Primary Care Unavailable JUDI ORTEGA Attending Unavailable WINTER, JOHNATHON E Referring Unavailable WINTER, JOHNATHON E Primary Care Unavailable JUDI ORTEGA Attending Unavailable WINTER, JOHNATHON E Referring Unavailable WINTER, JOHNATHON E Primary Care Unavailable JUDI ORTEGA Attending Unavailable WINTER, JOHNATHON E Referring Unavailable WINTER, JOHNATHON E Primary Care Unavailable RUSHER, GEORGI S Referring Unavailable WINTER, JOHNATHON E Primary Care Unavailable RUSHER, GEORGI S Referring Unavailable WINTER, JOHNATHON E Primary Care Unavailable MONSERRAT ANDERSON Referring Unavailable WINTER, JOHNATHON E Primary Care Unavailable RUTHIE EDWARDS Referring Unavailable WINTER, JOHNATHON E Primary Care Unavailable RUSHER, GEORGI S Admitting Unavailable RUSHER, GEORGI S Attending Unavailable RUSHER, GEORGI S Referring Unavailable WINTER, JOHNATHON E Primary Care Unavailable BURT MEYER Attending Unavailable WINTER, JOHNATHON E Referring Unavailable WINTER, JOHNATHON E Primary Care Unavailable KIPZABURT Winters Attending Unavailable WINTER, JOHNATHON E Referring Unavailable WINTER, JOHNATHON E Primary Care Unavailable RUSHER, GEORGI S Attending Unavailable RUSHER, GEORGI S Referring Unavailable JESSICA, SANJEEV Attending Unavailable RUSHER, GEORGI S Attending Unavailable RUSHER, GEORGI S Attending Unavailable RUSHER, GEORGI S Referring Unavailable JESSICA, SANJEEV Attending Unavailable JESSICA, SANJEEV Attending Unavailable JESSICA, SANJEEV Attending Unavailable RUSHER, GEORGI S Attending Unavailable RUSHER, GEORGI S Attending Unavailable RUSHER, GEORGI S Referring Unavailable RUSHER, GEORGI S Attending Unavailable RUSHER, GEORGI S Referring Unavailable JESSICA, SANJEEV Attending Unavailable MOUKARBEL, RUTHIE Attending Unavailable MOUKARBEL, RUTHIE Attending Unavailable Allergies Allergy Classification Reported Allergen(s) Allergy Type Date of Onset Reaction(s) Facility (20 sources) Topiramate; Translations: [TOPIRAMATE] Propensity to adverse reactions 4 Swelling [facility] (7 sources) Adhesive agent; Translations: [ADHESIVE] Propensity to adverse reactions to drug (disorder) 4 Rash [facility] (5 sources) topiramate Drug Allergy 4 Swelling, Other (See Comments) [facility] Work Phone: Medications Current Medications Medication Drug Class(es) Dates [...] pain 12 tablet 0 08/19/2021 08/22/2021 Active amLODIPine 5 mg oral tablet (20 sources) Dihydropyridine Calcium Channel Isaak Start: 07-03-2024 End: 07-03-2025 take 2 tablets by mouth in the morning amLODIPine (NORVASC) 5 mg tablet Take 2 tablets (10 mg total) by mouth in the morning. 07/03/2024 07/03/2025 Active Start: 07-03-2024 End: 07-18-2025 take 1 tablet by mouth in the morning amLODIPine (Norvasc) 10 MG tablet Take 10 mg by mouth in the morning. 07/03/2024 07/18/2025 Active Start: 07-03-2024 End: 07-03-2025 take 1 tablet by mouth in the morning amLODIPine (NORVASC) 5 mg tablet Take 1 tablet (5 mg total) by mouth in the morning. 07/03/2024 07/03/2025 Active aspirin 325 mg oral tablet (1 source) Platelet Aggregation Inhibitor, Nonsteroidal Anti-inflammatory Drug take 1 tablet by mouth in the morning aspirin 325 mg tablet Take 1 tablet (325 mg total) by mouth in the morning. Active Blood Glucose Monitoring Suppl (D-Care Glucometer) w/Device kit (20 sources) Start: 2023 End: 2024 Blood Glucose Monitoring Suppl (D-Care Glucometer) w/Device kit Indications: Pre-diabetes 1 kit Daily Use four times daily to check FSBS. In the morning prior to breakfast & 1 hour after each meal for a total of 4times daily. 1 kit 09/20/2023 09/19/2024 Active cephalexin 500 mg oral capsule (1 source) Cephalosporin Antibacterial Start: 2023 End: 2023 take 1 capsule by mouth in the morning, then take 1 capsule by mouth at bedtime CEPHalexin (KEFLEX) 500 mg capsule Take 1 capsule (500 mg total) by mouth in the morning and 1 capsule (500 mg total) before bedtime. Do all this for 6 days. 12 capsule 01/26/2024 02/01/2024 Active cholecalciferol 0.125 mg oral tablet (1 source) Vitamin D take 1 tablet by mouth in the morning cholecalciferol, vitamin D3, 5,000 units tablet Take 1 tablet (5,000 Units total) by mouth in the morning. Active cyclobenzaprine hydrochloride 10 mg oral tablet (20 sources) Muscle Relaxant Start: 2024 End: 2024 take 1 tablet by mouth three times daily as needed for muscle spasms cyclobenzaprine (Flexeril) 10 MG tablet Indications: Muscle cramps Take 1 tablet (10 mg) by mouth 3 (three) times a day as needed for muscle spasms for up to 10 days 30 tablet 08/12/2024 Active Start: 01-26-2024 take 1 tablet by surendra th three times daily cyclobenzaprine (FLEXERIL) 10 mg [...] NO DRIVING 9 tablet 0 04/14/2023 Active Start: 04-14-2023 cyclobenzaprin e (Flexeril) 10 MG [...] total) before bedtime. 30 capsule 01/26/2024 Active escitalopram 10 mg oral tablet (20 sources) Serotonin Reuptake Inhibitor Start: 05-17-2024 take 1 tablet by mouth in the morning escitalopram (Lexapro) 10 MG tablet Take 10 mg by mouth in the morning. 07/17/2024 Active fluconazole 100 mg oral tablet (6 [...] tablet Orally daily for 10 days Active gelatin, empty no. 00, capsu le (2 sources) Start: 04-16-2024 gelatin, empty no. 00, capsule Compound medication for hypothryroid 04/16/2024 Active Start: 04-16-2024 gelatin, empty no. 00, capsule 04/16/2024 Active hydrOXYzine hydrochloride 25 mg oral tablet (1 source) Antihistamine Start: 10-21-2024 take 1 tablet by mouth four times daily as needed for anxiety hydrOXYzine (ATARAX) 25 mg tablet Indications: Generalized anxiety disorder Take 1 tablet (25 mg total) by mouth 4 (four) times a day as needed for anxiety (or sleep). 120 tablet 2 10/21/2024 Active isopropyl alcohol 0.7 ml/ml medicated pad (20 sources) Start: 03-28-2024 BD ALCOHOL SWA BS pads, medicated 03/28/2024 Active Start: 12-24-2023 Alcohol Swabs (B-D SINGLE USE SWABS REGULAR) pads 12/24/2023 Active Start: 09-14-2023 End: 12-13-2023 Alcohol Swabs (Alcohol Prep Pad) 70 % pads Indications: Pre-diabetes Apply 1 Pad topically in the morning and 1 Pad before bedtime. Use twice daily to check FSBS.. 180 each 3 09/14/2023 12/13/2023 Active lisdexamfetamine dimesylate 40 mg oral capsule (20 sources) Central Nervous System Stimulant Start: 11-04-2024 take 1 capsule by mouth once daily in the morning lisdexamfetamine (VYVANSE) 40 mg capsule Indications: Attention deficit hyperactivity disorder (ADHD), predominantly inattentive type Take 1 capsule (40 mg total) by mouth every morning. Max Daily Amount: 40 mg 30 capsule 11/04/2024 Active Start: 12-08-2022 End: 11-29-2023 take 1 capsule by mouth once daily Lisdexamfetamine 50 mg capsule Discontinued 50 MG PO Daily June 22, 2023 June 23, 2023 9:10am Start: 2022 take 1 capsule by [facility] every twenty-four hours Vyvanse 30 MG 1 capsule in the morning Orally Once a day for 30 days Nov, Active losartan potassium 100 mg oral tablet (20 sources) Angiotensin 2 Receptor Isaak Start: 05-06-2024 End: 06-18-2024 take 1 tablet by mouth in the morning losartan (COZAAR) 100 mg tablet Take 1 tablet (100 mg total) by mouth in the morning. 05/06/2024 Active Start: 04-11-2024 End: 05-06-2024 take 1 tablet by mouth once daily Losartan 50 mg tablet Discontinued 50 MG PO daily May 06, 2024 3:10pm May 06, 2024 3:13pm magnesium glycinate 100 mg magnesium capsule (4 sources) magnesium glycin ate 100 mg magnesium capsule Take 200 mg by mouth nightly. Active magnesium oxide 400 mg oral tablet (1 source) take 1 tablet by mouth once daily magnesium oxide (MAGOX) 400 mg tablet Take 1 tablet (400 mg total) by mouth nightly. Active methylPREDNISolone 4 mg oral tablet (5 sources) Corticosteroid Start: 2023 methylPREDNISolone (MEDROL, JW,) 4 mg tablet Indications: Herniated lumbar intervertebral disc Take 1 tablet (4 mg total) by mouth See Admin Instructions. Use as directed by package instructions 21 tablet 0 05/15/2023 Active 24 hr metoprolol succinate 50 mg extended release oral tablet (20 sources) beta-Adrenergic Isaak Start: 2024 take 1 tablet by mouth every twenty-four hours metoprolol succinate XL (TOPROL XL) 50 mg 24 hr tablet Take 1 tablet (50 mg total) by mouth. 05/17/2024 Active Start: 05-17-2024 End: 06-18-2024 take 1 tablet by mouth once daily Metoprolol Succinate 50 mg tablet extended release 24 hr Active 50 MG PO daily June 18, 2024 8:43am MONOJECT 3CC SYRINGE 3 ML misc (20 sources) Start: 01-02-2024 MONOJECT 3CC S YRINGE 3 ML misc 01/02/2024 Active Mounjaro 10 MG/0.5ML solution auto-injector (7 sources) Start: 01-05-2024 End: 07-16-2024 inject 0.5 mL by subcutaneous injection every week Mounjaro 10 MG/0.5ML solution auto-injector Indications: Pre-diabetes INJECT 0.5 MLS SUBCUTANEOUSLY ONCE WEEKLY 2 mL 3 01/05/2024 07/16/2024 Discontinued (Discontinued by another clinician) Start: 01-05-2024 inject 0.5 mL by sub cutaneous injection every week Mounjaro 10 MG/0.5ML solution auto-injector Indications: Pre-diabetes INJECT 0.5 MLS SUBCUTANEOUSLY ONCE WEEKLY 2 mL 3 01/05/2024 Active mounjaro 10 mg/0.5ml solution pen-injector (6 sources) Mounjaro 10 MG/0 .5ML as directed Subcutaneous Active Mounjaro 12.5 MG/0.5ML solution auto-injector (20 sources) Start: 10-02-2024 inject 0.5 mL by subcutaneous injection every week Mounjaro 12.5 MG/0.5ML solution auto-injector Indications: Insulin resistance , Weight gain inject 0.5 milliliters UNDER THE SKIN ONCE WEEKLY 2 mL 3 10/02/2024 Active Start: 07-05-2024 inject 0.5 mL by sub cutaneous injection every week Mounjaro 12.5 MG/0.5ML solution auto-injector Indications: Insulin resistance , Weight gain inject 0.5 milliliters UNDER THE SKIN ONCE WEEKLY 2 mL 3 07/05/2024 Active MOUNJARO 7.5 mg/0.5 mL pen injector (10 sources) Start: 02-27-2023 inject 7.5 mg by subcutaneous injection every week MOUNJARO 7.5 mg/0.5 mL pen injector Inject 7.5 mg under the skin once a week. 02/27/2023 Active Start: 02-27-2023 inject 7.5 mg by sub cutaneous injection every week MOUNJARO 7.5 mg/0.5 mL pen injector Inject 7.5 mg under the skin once a week. 0 02/27/2023 Active ltrtctziovjw-hzb-yjum-FA-vit K 18 mg iron-400 mcg-25 mcg tablet (1 source) multivitamin-min -iron-FA-vit K 18 mg iron-400 mcg-25 mcg tablet Take by mouth. Active nystatin 100 unt/mg topical powder (20 sources) Polyene Antifungal Star t: 10-02 End: 11-02 nystatin (Mycostatin) [id number] UNIT/GM powder Indications: Skin irritation Apply topically 3 (three) times a day as needed for rash 30 g 1 10/25/2024 11/24/2024 Active Start: 05-01-2023 End: 09-20-2024 nystatin (Mycostatin) cream Indications: Superficial skin infection Apply topically 2 (two) times a day Dispense cream that does NOT have perfumes added. 30 g 3 09/21/2023 09/20/2024 Active Start: 04-14-2023 nystatin (MYCO STATIN) powder Apply 1 Application topically in the morning and 1 Application before bedtime. 04/14/2023 Active Start: 04-14-2023 nystatin (Myco statin) [id number] UNIT/GM powder Indications: Skin irritation APPLY TO AFFECTED AREA TOPICALLY EVERY DAY 30 g 1 04/14/2023 Active ondansetron 4 mg disintegrating oral tablet (20 sources) Serotonin-3 Receptor Antagonist Start: 06-27-2024 ondansetron ODT (Zofran-ODT) 4 MG disintegrating tablet Indications: Nausea DISSOLVE ONE TABLET UNDER THE TONGUE EVERY 6 HOURS NEEDED FOR NAUSEA AND VOMITING 30 tablet 2 06/27/2024 Active Start: 01-26-2024 take 1 tablet by surendra th every eight hours as needed for nausea and vomiting ondansetron ODT (ZOFRAN ODT) 4 mg disintegrating tablet Dissolve 1 tablet (4 mg total) on tongue every 8 (eight) hours as needed for nausea or vomiting. 30 tablet 01/26/2024 Active Start: 04-11-2023 End: 05-11-2023 take 1 tablet by mouth every six hours ondansetron ODT (ZOFRAN ODT) 4 mg disintegrating tablet Dissolve 1 tablet (4 mg total) on tongue every 6 (six) hours. 0 04/11/2023 05/11/2023 Active Start: 01-03-2022 take [...] days 20 tablet 0 08/19/2021 08/29/2021 Active Oft-Fim-RK-Fish Oil ([facility] GUMMY) 0.4-113.5 MG CHEW (2 sources) Vit-Min -FA-Fish Oil ([facility] G[facility]) 0.4-113.5 MG CHEW Take 2 Units by mouth daily 0 Active 5 ml sodium chloride 9 mg/ml injection (2 sources) Start: 01-03-2022 sodium chlorid e flush 0.9 % injection 10 mL Start: 01-03-2022 End: 01-03-2022 0.9 % sodium chloride bolus Tirzepatide (5 sources) Start: 05-17-2024 Tirzepatide 10 mg/0.5 mL pen injector Active 12.5 MG SUBCUT As Directed May 17, 2024 12:13pm FreeTextSig: as directed Subcutaneous; Note: Source Status: Taking; Provider: jessica romero Start: 05-17-2024 Tirzepatide 10 mg/0.5 mL pen injector Active 12.5 MG SUBCUT As Directed May 17, 2024 11:13am FreeTextSig: as directed Subcutaneous; Note: Source Status: Taking; Provider: jessica romero Start: 04-11-2024 End: 05-17-2024 Tirzepatide 10 mg/0.5 mL pen injector Discontinued MG SUBCUT As Directed April 11, 2024 1:00am May 17, 2024 12:13pm FreeTextSig: as directed Subcutaneous; Note: Source Status: Taking; Provider: jessica romero Start: 04-11-2024 End: 05-17-2024 Tirzepatide 10 mg/0.5 mL pen injector Discontinued MG SUBCUT As Directed April 11, 2024 12:00am May 17, 2024 11:13am FreeTextSig: as directed Subcutaneous; Note: Source Status: Taking; Provider: jessica romero Start: 04-11-2024 Tirzepatide 10 mg/0.5 mL pen [...] per week 2 mL 3 09/14/2023 Active tirzepatide (MOUNJARO) 2.5 mg/0.5 mL pen injector (2 sources) tirzepatide (MOUNJARO) 2.5 mg/0.5 mL pen injector Inject 2.5 mg under the skin every 7 days. Sundays Active Tirzepatide (Mounjaro) 7.5 MG/0.5ML solution pen-injector [...] spasms) 10 tablet 0 02/16/2022 Active Viloxazine (8 sources) Start: 08-01-2024 take 1 capsule by mouth every twenty-four hours in the morning viloxazine (QELBREE) 200 mg capsule,extended release 24hr Indications: Attention deficit hyperactivity disorder (ADHD), predominantly inattentive type Take 200 mg by mouth in the morning. 90 capsule 1 08/01/2024 Active Start: 07-29-2024 take 1 capsule by mo [facility] once daily Viloxazine (Qelbree) 200 mg capsule,extended release 24hr Active 200 MG PO Daily July 29, 2024 12:00am Start: 07-17-2024 End: 07-31-2024 take 1 capsule by mouth every twenty-four hours in the morning viloxazine (QELBREE) 200 mg capsule,extended release 24hr Indications: Attention deficit hyperactivity disorder (ADHD), predominantly inattentive type Take 200 mg by mouth in the morning. 30 capsule 07/17/2024 07/31/2024 Discontinued (Reorder) Start: 04-11-2024 End: 05-17-2024 take 1 capsule by mouth once daily at bedtime Viloxazine (Qelbree) 200 mg capsule,extended release 24hr Discontinued 200 MG PO Daily at bedtime April 11, 2024 1:00am May 17, 2024 12:13pm Start: 04-11-2024 End: 05-17-2024 take 1 capsule by mouth once daily at bedtime Viloxazine (Qelbree) 200 mg capsule,extended release 24hr Discontinued 200 MG PO Daily at bedtime April 11, 2024 12:00am May 17, 2024 11:13am Start: 01-03-2024 take 1 capsule by mo [facility] every twenty-four hours in the morning viloxazine (QELBREE) 200 mg capsule,extended release 24hr Indications: Attention deficit hyperactivity disorder (ADHD), predominantly inattentive type Take 200 mg by mouth in the morning. 30 capsule 1 01/03/2024 Active Viloxazine HCl ER (Qelbree) 200 MG capsule sustained-release 24 hr (20 sources) Start: 07-17-2024 take 1 capsule by mouth in the morning, then take 1 capsule by mouth every twenty-four hours Viloxazine HCl ER (Qelbree) 200 MG capsule sustained-release 24 hr Take 200 mg by mouth in the morning. 07/17/2024 Active End: 07-16-2024 take 1 capsule by mouth at bedtime, then take 1 capsule by mouth every twenty-four hours Viloxazine HCl ER (Qelbree) 200 MG capsule sustained-release 24 hr Take 200 mg by mouth at bedtime 07/16/2024 Discontinued (Discontinued by another clinician) take 1 capsule by mo [facility] at bedtime, then take 1 capsule by mouth every twenty-four hours Viloxazine HCl ER (Qelbree) 200 MG capsule sustained-release 24 hr Take 200 mg by mouth at bedtime Active Completed/Discontinued Medications Medication Drug Class(es) Dates Sig (Normalized) Sig (Original) amphetamine aspartate 5 mg / amphetamine sulfate 5 mg / dextroamphetamine saccharate 5 mg / dextroamphetamine sulfate 5 mg oral tablet (20 sources) Central Nervous System Stimulant Start: 11-22-2023 End: 01-18-2025 take 1 capsule by mouth once daily in the morning, then take 1 capsule by mouth every twenty-four hours Dextroamphetamine- Amphetamine (Adderall Xr) 30 mg capsule,extended release 24hr Discontinued 30 MG PO Every morning April 11, 2024 1:00am July 29, 2024 11:23am Start: 09-18-2023 End: 04-11-2024 take 1 tablet by mouth twice daily Dextroamphetamine-Amphetamine 30 mg tabl et Discontinued 30 MG PO Twice daily 60 30 October 25, 2023 April 11, 2024 11:03am Start: 06-21-2023 End: 06-21-2023 take 1 tablet by mouth twice daily Dextroamphetamine-Amphetamine 30 mg tabl et Discontinued 30 MG PO Twice daily June 21, 2023 12:00am June 21, 2023 3:09pm Start: 04-19-2023 take 1 tablet by surendra th every twelve hours Adderall 30 MG 1 tablet Orally Twice a d ay for 30 days Apr, Active Start: 01-02-2023 End: 07-16-2024 take 1 tablet by mouth once daily Dextroamphetamine-Amphetamine (Adderall) 20 mg tablet Discontinued 20 MG PO Daily April 11, 2024 1:00am May 17, 2024 12:12pm ibuprofen 800 mg oral tablet (9 sources) Nonsteroidal Anti-inflammatory Drug Start: 04-25-2022 End: [...] End: 10-11-2022 ketorolac (TORADOL) injection 30 mg MONOJECT LUER-LOCK TIP 3 mL syringe (1 source) Start: 05-09-2024 End: 07-31-2024 MONOJECT LUER-LOCK TIP 3 mL syringe 05/09/2024 07/31/2024 Discontinued (Error) 1 ml morphine sulfate 4 mg/ml cartridge (1 source) Opioid Agonist Start: 08-19-2021 End: 08-19-2021 morphine (PF) injection 10 mg Start: 08-19-2021 End: 08-19-2021 morphine (PF) injection 10 m g Problems Active Problems Problem Classification Problem Date Documented Date Episodic/Chronic Acquired foot deformities (20 sources) Acquired left hallux valgus; Translations: [Hallux valgus (acquired), left foot] Onset: 10-06-2022 10-06-2022 Chronic Acquired foot deformities (8 sources) Tailor's bunion of left foot; Translations: [Bunionette of left foot] 07-16-2024 Episodic Anxiety disorders (7 sources) Anxiety; Translations: [Anxiety disorder, unspecified] Onset: 01-03-2024 01-03-2024 Chronic Attention-deficit, conduct, and disruptive behavior disorders (16 sources) Adult attention deficit hyperactivity disorder ; Translations: [Attention-deficit hyperactivity disorder, unspecified type] 06-22-2023 Chronic Attention-deficit, conduct, and disruptive behavior disorders (14 sources) Attention-deficit hyperactivity disorder, unspecified type; Translations: [Attention deficit disorder with hyperactivity] Chronic Attention-deficit, conduct, and disruptive behavior disorders (5 sources) Attention deficit hyperactivity disorder, predominantly inattentive type; Translations: [Attention-deficit hyperactivity disorder, predominantly inattentive type] Onset: 11-22-2023 11-22-2023 Chronic Attention-deficit, conduct, and disruptive behavior disorders (1 source) Attention-deficit hyperactivity disorder, predominantly inattentive type; Translations: [Attention-deficit hyperactivity disorder, predominantly inattentive type] Onset: 11-22-2023 Chronic Essential hypertension (8 sources) Benign essential hypertension; Translations: [Essential (primary) hypertension] Onset: 07-03-2024 04-11-2024 Chronic Genitourinary symptoms and ill-defined conditions (1 source) Incontinence without sensory awareness; Translations: [Incontinence without sensory awareness] 05-08-2023 Chronic Headache; including migraine (20 sources) Migraine without aura, not refractory ; Translations: [Chronic migraine without aura, not intractable, without status migrainosus] Onset: 12-01-2021 10-06-2022 Chronic Immunizations and screening for infectious disease (1 source) Encounter for screening for human papillomavirus (HPV); Translations: [ENC SCREENING HUMAN PAPILLOMAVIRUS] Onset: 07-17-2022 Episodic Menstrual disorders (20 sources) Menorrhagia; Translations: [Excessive and frequent menstruation with regular cycle] Onset: 10-06-2022 10-06-2022 Chronic Miscellaneous mental health disorders (13 sources) Psychophysiologic insomnia; Translations: [Psychophysiologic insomnia] Onset: 12-01-2021 12-01-2021 Chronic Mycoses (1 source) Candidiasis of skin and nail Episodic Nutritional deficiencies (3 sources) Vitamin D deficiency; Translations: [Vitamin D deficiency, unspecified] Onset: 07-17-2024 07-16-2024 Chronic Other acquired deformities (4 sources) Equinus contracture of the ankle; Translations: [Contracture, left ankle] 07-16-2024 Chronic Other acquired deformities (1 source) Mallet finger of right finger(s); Translations: [Mallet finger of right finger(s)] Onset: 05-17-2023 Episodic Other acquired deformities (4 sources) Deformity of metatarsal; Translations: [Unspecified acquired deformity of left lower leg] 07-16-2024 Episodic Other aftercare (2 sources) Surgical follow-up; Translations: [Encounter for follow-up examination after completed treatment for conditions other than malignant neoplasm] 01-03-2024 Episodic Other connective tissue disease (2 sources) Pain in finger of right hand; Translations: [Pain in right finger(s)] 05-04-2023 Episodic Other connective tissue disease (12 sources) Pain in left foot; Translations: [Pain in left foot] 07-16-2024 Episodic Other diseases of bladder and urethra (13 sources) Neurogenic bladder; Translations: [Neuromuscular dysfunction of bladder, unspecified] Onset: 12-01-2021 12-01-2021 Chronic Other endocrine disorders (12 sources) Polycystic ovaries; Translations: [Polycystic ovarian syndrome] Chronic Other endocrine disorders (20 sources) Polycystic ovary; Translations: [Polycystic ovarian syndrome] Onset: 10-06-2022 10-06-2022 Chronic Other female genital disorders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 Automated count 1.4-6.5 [facility] Neutrophils/100 WBC Auto (Bl d)on 07-08-2024 Neutrophils/100 WBC (Bld) Automated neutrophil % 43.0-75.0 [facility] No Panel Informationon 07-08 Miscellaneous Test COMMENT . [facility] Comment on above: Test Ordered: [id number] Metanephrines, Frac., Pl. FreeNormetanephrine, Pl 84.6 pg/mL Reference Range: 0.0-218.9This test was developed and its performance characteristicsdetermined by [facility]. It has not been cleared orapproved by the Food and Drug Administration.Metanephrine, Pl <25.0 pg/mL Reference Range: 0.0-88.0This test was developed and its performance characteristicsdetermined by [facility]. It has not been cleared orapproved by the Food and Drug Administration.Performed at: - [facility] [id number] Director: Katelynn Macdonald MD, Phone: [phone] at: [facility] [address] [id number] Director: Theron Roblero PhD, Phone: [phone] Eosinophils # (Auto) 0.2 10 3/uL 0.0-0.7 [facility] Immature Granulocyte # (Auto) 0.00 10 3/uL 0.00-0.03 [facility] Platelet mean volume Auto (B ld) [Entitic vol]on 07-08-2024 Platelet mean volume (Bld) [Entitic vol] Platelet mean volume [Entitic volume] in Blood by Automated count Low 9.5-13.5 [facility] Platelets Auto (Bld) [#/Vol] on 07-08-2024 Platelets (Bld) [#/Vol] Platelets [#/vol ume] in Blood by Automated count 150-450 [facility] RBC Auto (Bld) [#/Vol]on RBC (Bld) [#/Vol] Erythrocytes [#/volu me] in Blood by Automated count 4.20-5.40 [facility] Serum or plasma albumin/glob ulin mass ratioon 07-08-2024 Albumin/Globulin [Mass ratio] Serum or plasma albumin/globulin mass ratio [facility] Serum or plasma anion gap de terminationon 07-08-2024 Anion gap [Moles/Vol] Serum or plasma an ion gap determination [facility] Office Visiton 07-03-2024 Follow-up visit [id number] Cameron Dumont 1980 F Date Provider Department Center 07/03/2024 RUTHIE DEVRIES C[facility] Family History Problem Relation Age of Onset Heart murmur Mother No Known Problems Father Family Status - Relation Status Age at Mother Alive Father Alive Level of Service:50196 [place] OFFICE/OP CONSLTJ NEW/EST PT MOD MDM 40 MINUTES Normal [facility] CT Head or Brain w/o Contras ton 06-28-2024 CT Head or Brain w/o Contrast EXAMINATION: CT Head or Brain w/o Contrast HISTORY: Acute headache. Hypertension. Nausea and vomiting. COMPARISON: 01/14/2024. TECHNIQUE: CT examination of the head without IV contrast. Dose reduction techniques were achieved by using automated exposure control and/or adjustment of mA and/or kV according to patient size and/or use of iterative reconstruction technique. FINDINGS: No midline shift, mass effect, or intracranial hemorrhage are identified. The mastoid air cells and the visualized paranasal sinuses are clear. IMPRESSION: Unremarkable unenhanced head CT. Final Dictated by: Victor M Kim MD Dictated DT/TM: 06/28/24 11:15 Signed (Electronic Signature): Victor M Kim MD 06/28/24 11:24 a Technologist: Vannesa REESE [facility] Extra Blueon 06-28-2024 Tube Collected Yes Invalid Interpretation Code [facility] Comment on above: Performed By: #### 1 [id number], [id number], [id number], [id number] ####[facility] (DEFAULT)[address] [place] [address] Cholesterol in LDL Calc [Mas s/Vol]on 04-15-2024 Cholesterol in LDL [Mass/Vol] Cholesterol in LDL [Mass/volume] in Serum or Plasma by calculation [facility] Comment on above: <100 mg/dl [id number] 0-129 mg/dl NEAR OR ABOVE [id number] mg/dl BORDERLINE FVWS365-492 mg/dl HIGH>190 mg/dl VERY HIGH Cholesterol in VLDL Calc [Ma ss/Vol]on 04-15-2024 Cholesterol in VLDL [Mass/Vol] Cholesterol in VLDL [Mass/volume] in Serum or Plasma by calculation [facility] - Chemistry and C hemistry - challengeon 04-15-2024 Cholesterol [Mass/Vol] 174 mg/dL <=200 [facility] Cholesterol in HDL [Mass/Vol] 65 mg/dL High 40-60 [facility] Comment on above: > or =60 mg/dl - LOW CARDIOVASCULAR RISK<40 mg/dl - HIGH CARDIOVASCULAR RISK Triglyceride [Mass/Vol] 83 mg/dL <=150 F [place] Serum or plasma total choles terol/high density lipoprotein (HDL) cholesterol mass eulalio 04-15-2024 Cholesterol.total/Amber sterol in HDL [Mass ratio] Serum or plasma total cholesterol/high density lipoprotein (HDL) cholesterol mass rat [facility] Comment on above: 3.3 - 4.4 LOW RISK4. 4 - 7.1 AVERAGE RISK7.1 - 11.0 MODERATE RISK>11.0 HIGH RISK Free testosterone measuremen t by LC-MS/MSon 04-01-2024 Testosterone Free [Mass/Vol] Free testosterone measurement by LC-MS/MS 0.0-4.2 [facility] Comment on above: Performed at: [address], [place] [id number] Director: Theron Roblero PhD, Phone: [phone] at: [facility] [id number] Director: Katelynn Macdonald MD, Phone: [phone] Glucose mean value [Mass/vol ume] in Blood Estimated from glycated hemoglobinon 04-01-2024 Average glucose Estimated from glycated hemoglobin (Bld) [Mass/Vol] Glucose mean value [Mass/volume] in Blood Estimated from glycated hemoglobin [facility] - Chemistry and C hemistry - challengeon 04-01-2024 Cobalamin (Vitamin B12) [Mass/Vol] 336 pg/mL 232-1245 [facility] Comment on above: Performed at: [facility] - Jerson alfar[facility] [address] [id number] Director: Theron Roblero PhD, Phone: [phone] Ferritin [Mass/Vol] 11.0 ng/mL 8.0-252.0 [facility] Free T4 [Mass/Vol] 1.03 ng/dL 0.76-1.46 [facility] Glucose [Mass/Vol] 80 mg/dL 74-106 [facility] T4 [Mass/Vol] 9.30 ug/dL 4.80-13.90 [facility] TSH Qn 1.271 m[IU]/L 0.358-3.74 0 [facility] - Hematology and Cell countson 04-01-2024 HbA1c (Bld) [Mass fraction] 5.0 % 4.5-6.2 [facility] Comment on above: ADA RECOMMENDED LIMI T 4.0 - 6.0ADA THERAPEUTIC TARGET < 7.0ACTION SUGGESTED> 7.0 MLR HEMOGLOBIN A1Con 024 Glucose [Mass/Vol] 97 mg/dL [facility] HbA1c (Bld) [Mass fraction] 5 % 4.5 - 6.2 % [facility] Comment on above: ADA RECOMMENDED LIMI T 4.0 - 6.0 ADA THERAPEUTIC TARGET < 7.0 ACTION SUGGESTED > 7.0 [facility] No Panel Informationon 04-01 25-Hydroxy Vitamin D Total 22.2 ng/mL [facility] Comment on above: <20 ng/mL Vit D defi cient20-<30 ng/mL Vit D mzztfayspqta71-210 ng/mL Vit D sufficient>100 ng/mL Potential Toxicity C-Peptide 2.3 ng/mL 1.1-4.4 [facility] Comment on above: C-Peptide reference interval is for fasting patients. Dehydroepiandrosterone Sulfate 122.0 ug/dL 57.3-279.2 [facility] Free Cortisol, Dialysis, LCMS 0.385 ug/dL . [facility] Comment on above: These tests were dev eloped and their performancecharacteristics determined by [facility]. They have not beencleared or approved by the Food and Drug Administration.Reference Range:8 AM 0.10 - 1.204 PM 0.042 - 0.872Performed at: [facility] [id number] [place], [place] [id number] Director: Kal Archibald MD, Phone: [phone] Free Triiodothyronine 2.38 pg/mL 2.18-3.98 [facility] Reverse Triiodothyronine (T3) 23.1 ng/dL 9.2-24.1 [facility] Comment on above: This test was develo ped and its performance characteristicsdetermined by [facility]. It has not been cleared orapproved by the Food and Drug Administration.Performed at: - [address] [id number] Director: Katelynn Macdonald MD, Phone: [phone] Sex Hormone Binding Globulin 119.0 nmol/L 24.6-122.0 [facility] Comment on above: Performed at: - [address] [id number] Director: Theron Roblero PhD, Phone: [phone] Testosterone Level 17 ng/dL 4-50 [facility] Plasma serotonin measurement (mass/volume)on 04-01-2024 Serotonin (P) [Mass/Vol] Plasma serotonin measurement (mass/volume) [facility] Comment on above: This test was develo ped and its performance characteristicsdetermined by [facility]. It has not been cleared orapproved by the Food and Drug Administration.Performed at: [facility] [id number] Director: Katelynn Macdonald MD, Phone: [phone] Serum estrone measurementon 04-01-2024 E1 [Mass/Vol] Serum estrone measurement . [facility] Comment on above: Range Adult (Premeno pausal) 27 - 231 Menstrual Cycle (1-10 days) 19 - 149 Menstrual Cycle (11-20 days) 32 - 176 Menstrual Cycle (21-30 days) 37 - 200 Adult (Postmenopausal) 0 - 125Performed at: [facility] [id number] Director: Katelynn Macdonald MD, Phone: [phone] Serum or plasma estradiol (E 2) measurement (mass/volume)on 04-01-2024 E2 [Mass/Vol] Serum or plasma estradiol (E2) measurement (mass/volume) . [facility] Comment on above: Adult Female Range F ollicular phase 12.5 - 166.0 Ovulation phase 85.8 - 498.0 Luteal phase 43.8 - 211.0 Postmenopausal <6.0 - 54.7 1st trimester 215.0 - >4300.0Roche ECLIA methodology Serum or plasma insulin mariam urement (units/volume)on 04-01-2024 Insulin Qn Serum or plasma insu stephanie measurement (units/volume) 2.6-24.9 [facility] Comment on above: Performed at: [facility] [address] [id number] Director: Theron Roblero PhD, Phone: [phone] Serum or plasma progesterone measurement (mass/volume)on 04-01-2024 Progesterone [Mass/Vol] Serum or plasma progesterone measurement (mass/volume) . [facility] Comment on above: Follicular phase 0.1 - 0.9 Luteal phase 1.8 - 23.9 Ovulation phase 0.1 - 12.0 First trimester 11.0 - 44.3 Second trimester 25.4 - 83.3 Third trimester 58.7 - 214.0 Postmenopausal 0.0 - 0.1Performed at: [facility] [id number] [place], [place] [id number] Director: Theron Roblero PhD, Phone: [phone] TPO Ab Qnon 04-01-2024 Thyroid Peroxidase Antibodies <9 [IU]/mL 0-34 [facility] Thyroglobulin Ab Qnon 2023 Anti-Thyroglobulin Antibody 1.0 [IU]/mL Abnormal 0.0-0.9 [facility] Comment on above: Thyroglobulin Antibo dy measured by G-clusterMethodologyIt should be noted that the presence of thyroglobulinantibodies may not be pathogenic nor diagnostic, especiallyat very low levels. The assay workers compensation defense attorney has found thatfour percent of individuals without evidence of thyroiddisease or autoimmunity will have positive TgAb levels upto 4 IU/mL.Performed at: [facility] [id number] [place], [place] [id number] Director: Theron Roblero PhD, Phone: [phone] Thyroglobulin [Mass/volume] in Serum or Plasmaon 04-01-2024 Thyroglobulin [Mass/Vol] Thyroglobulin [Mass/volume] in Serum or Plasma . [facility] Comment on above: This test was develo ped and its performance characteristicsdetermined by [facility]. It has not been cleared or approvedby the Food and Drug Administration.Reference Range:Pubertal Childrenand Adults: <40According to the National Academy of Clinical Biochemistry,the reference interval for Thyroglobulin (TG) should berelated to euthyroid patients and not for patients whounderwent thyroidectomy. TG reference intervals for thesepatients depend on the residual mass of the thyroid tissueleft after surgery. Establishing a post-operative baselineis recommended. The assay quantitation limit is 2.0 ng/mL.Performed at: [facility] [id number] [place], [place] [id number] Director: Kal Archibald MD, Phone: [phone] BASIC METABOLIC PANLon 01-25 Anion gap [Moles/Vol] 5 mmol/L Normal 5-15 [facility] Comment on above: Performed By: #### C , BMP #### [facility] ([id number]) [address] [place] [address] Calcium [Mass/Vol] 8.1 mg/dL Low 8.5-10.5 [facility] Comment on above: Performed By: #### C VIANEY, BMP #### [facility] ([id number]) [address] [facility] [place] [address] Chloride [Moles/Vol] 107 mmol/L Normal 98-109 [facility] Comment on above: Performed By: #### C VIANEY, BMP #### [facility] ([id number]) [address] [facility] [place] [address] CO2 [Moles/Vol] 26 mmol/L Normal 22-32 [facility] Comment on above: Performed By: #### C VIANEY, BMP #### [facility] ([id number]) [address] [facility] [address] Creatinine [Mass/Vol] 0.89 mg/dL Normal 0.40-1.00 [facility] Comment on above: Result Comment: METH OD TRACEABLE TO IDMS STANDARD Performed By: #### C VIANEY, BMP #### [facility] ([id number]) [address] [place] [address] GFR/1.73 sq M.predicted among non-blacks MDRD (S/P/Bld) [Vol rate/Area] 83 mL/min/{1.73_m2} Normal >59 [facility] Comment on above: Result Comment: Reported eGFR is based on the CKD-EPI 2020 equation that does not use a race coefficient. Performed By: #### C VIANEY, BMP #### [facility] ([id number]) [address] [facility] [address] Glucose [Mass/Vol] 114 mg/dL High 65-99 [facility] Comment on above: Performed By: #### C VIANEY, BMP #### [facility] ([id number]) [address] [facility] [address] Potassium [Moles/Vol] 4.1 mmol/L Normal 3.5-5.0 [facility] Comment on above: Performed By: #### C BC, BMP #### [facility] ([id number]) [address] [place] [address] Sodium [Moles/Vol] 138 mmol/L Normal 134-146 [facility] Comment on above: Performed By: #### C BC, BMP #### [facility] ([id number]) [facility] [place] [place] [address] Urea nitrogen [Mass/Vol] 15 mg/dL Normal 5-23 [facility] Comment on above: Performed By: #### C BC, BMP #### [facility] ([id number]) [address] [place] [address] COMPLETE BLOOD COUNTon 01-25 Erythrocyte distribution width (RBC) [Ratio] 14.5 % Normal 11.5-15.0 [facility] Comment on above: Performed By: #### C BC, BMP #### [facility] ([id number]) [address] [place] [address] Hematocrit (Bld) [Volume fraction] 30.0 % Low 35-47 [facility] Comment on above: Performed By: #### C BC, BMP #### [facility] ([id number]) [address] [place] [address] Hemoglobin (Bld) [Mass/Vol] 9.9 g/dL Low 11.7-15.5 [facility] Comment on above: Performed By: #### C BC, BMP #### [facility] ([id number]) [address] [place] [address] MCH (RBC) [Entitic mass] 27.8 pg Normal 27-34 [facility] Comment on above: Performed By: #### C BC, BMP #### [facility] ([id number]) [address] [place] [address] MCHC (RBC) [Mass/Vol] 33.2 g/dL Normal 32-36 [facility] Comment on above: Performed By: #### C BC, BMP #### [facility] ([id number]) [address] [place] [address] MCV (RBC) [Entitic vol] 84 fL Normal 80-100 [facility] Comment on above: Performed By: #### C VIANEY, BMP #### [facility] ([id number]) [address] [place] [address] Platelet mean volume (Bld) [Entitic vol] 7.7 fL Normal 7-12 [facility] Comment on above: Performed By: #### C VIANEY, BMP #### [facility] ([id number]) [address] [place] [address] Platelets (Bld) [#/Vol] 267 10*3/uL Normal 150-450 [facility] Comment on above: Performed By: #### Raul WINTERS, BMP #### [facility] ([id number]) [address] [place] [address] RBC COUNT 3.58 X10E12/L Low 3.80-5.20 [facility] Comment on above: Performed By: #### C VIANEY, BMP #### [facility] ([id number]) [address] [place] [address] WBC (Bld) [#/Vol] 15.6 10*3/uL High 4.0-11.0 [facility] Comment on above: Performed By: #### Raul WINTERS, BMP #### [facility] ([id number]) [address] [place] [address] Coding Summaryon 01-26-2024 Coding Summary HTMLBase 64 EwbhlxgoGFn8dHt+PGhlYWQ+ EN6ZQCOnS03ucUImkX0mU2MF TElOSywgQVBQTElOSyIgbmFt AS5jpNCdIBYv IC8+IZ7fIXScFzkjqDZky8W7 rJU7I56hjz2yHIvipFB5EHKi FwRlkfpor8zryOv6BTsaIkrm OyBt ADOcdN04PLM5xL05Xn57rQQq qYNwm9jtfJm5MnFdLXZzOCP4 kWzyXEqrp3ZvHLFfI44zjAPv c2U6 TMIgsOcxnXPeGlHyyXO5hN8q FYzgdofkz3dprngrWui7fg53 vTGop0G5hEC1J2RlaxD0IHEz bGQg VrfmrRGLlS3jvpyhq2rgqdyo QxHhUPDwNSw1JIk5ROBdiRpq WpYrTN92RUG7COIhaqJnS6Em LWFs nLsjEhH9x2W3Dk4PM3RABpbt O9CQASNVYNbmbNS+IK04zs71 T1YeGntaAph1AXGnQZQ9bNH8 aD0n AZDuMNnhl5C2yLK4P1LnvcJn vs2fs0szDOLtZDhaW72ggQNm t1O0IVRbyUU5TMYqeCldCoSb aG93 Oyc+WWAxzUukd4WhNmnhp9rj l1cqwPr3IvdiHDWdhwRbfGzq XEP3i5MhBx4eBCEosXK0sPY3 aD0i GeWoHhC3NRcqJ520IzRalPAu RzopZ50pO5GhoLU+PHRyPjx0 MHMcsJvzRT6eJ3QfCNYugvpm bGVm gUjgMN9dZECmayymQSGylM7o EUYhA0x9KsNwEhF5LQuhV2Jz HYWjlrzpJj86zS9aKtTdRkY8 MGlu J7YpwpP2VFUhfYVnKVmsMHY9 X98xv3C2EFQsWJIrVHD2yUS7 mQ1vbRgyxokwmLZtzXdrbbEw dGlj BXvaAQjjF294ZLJfmHxaYwQi ZGluZyBEYXRlOiAgMTAvMjUv MjAyNDwvdGQ+KSHgZWZ9wOaz PSAn zXMwGVdtUg4wnQoxoMotIN7s TBLrhzuvWBNvhR5nNAGgeEWr iTlgSF0pMRZphspii790MdDi MHB0 RXRqaMIpO6AmrD1lGfCjWJSd LOYjH1VpgXRzELbfD265KIrt BoT5VOOubxTsH4VzSKTggUvh OiB0 e3K3Tg6By9EmiuogH7LdwWNv MfKwHfieCKr5M6SzKwrelMD+ AA60SWTlOS70XKz0GDT9aVgp PSdi PILuI1CpeI5dLnCsJQRlLLYc Oyc+PHRhYmxlIHdpZHRoPScx IWZjDlFesEttMV2pAh0vECXv LWNv gTbdkCSzFdTnc8fmGQDiHZvs RE1igBzvP4LlqVC8TXMpf2n3 Rg68V84xK8UdwED+PGNvbCB3 aWR0 uN5pDnPwSdH6HUojL841OgZp eHIfDtqpc1rmv4tmnYz1FcB6 JRQbpfOnhFchTGF8b4DnGa20 Y29s IHdpZHRoPSIxNSUiIHZhbGln vp7ojN9sCp3+MVVulFI9fKG3 oG5fAiWeQqL2PDbgV195NgLj cCIv Ssstu7jaj1jamLm5XuTkVCVp ixIbqRzvYVF8f8NpRs90B1Fl fRgka4HzRbp1gt31uQDiv2Z1 bGU9 S9FyUOBnsybggVYkrHxkNI2h IYRhwoxlUKUtuH7bOJYzF7n5 ZgLpKrD2WTpwS6NegeF1YWRw bGQg XUYkaCOYxF3nuuqpm5qoshwd OpIzOEFjGYw1GMh4VQBrtYja QnKoTDI5EyU9KFV3wRLytF5k bGln qzlaaF0nOgx+ICX0gSXgxITP BJ5gQeuwxCK+ABDfJVX6bLmh ZRluIUYwnE0sXQBhT5t6QpSt LjA1 SYnvW1FqxtN1AHEijJTwSXOz mBJGfK7oclynq9xofnxlEaCs ITZhAWf6NLz5CIUraYmgAdKa ZWZ0 VaH4SLM5oSMbiA6vjYrzxjbv yB3kHon+HmiryPisZOQ0OIg2 Z3BiIvh3QZStjOhgDJ6eaRBn ZGlu Xq1erVbkkGgoQE5fKXJurfnj m231LyLpz2msEZAsqSMgBXrj GAW9L85vy5J7UTNbYVZbLYH0 dGV4 rK1edRyuwyyraCAaqYbsijTt eFlcRImkVTchU348VMUfxJdo RtJwNAh2X1JoMse9UYVpbJgm ZT0n jCHwJWeqXz7ozDpyyBvsJN0s YQEagnvgu066ZoFol9eyDBDc qVHbJNcnAZK1U61pm9Y7DLBl MDAw EGE6vTX5wD7vaIglioksqYTm rFzikuQsdJxoHVxhAAluQ085 NIZisIbnKjVygSv3F2XkKxv8 ZCBz lNluBQ4coBFkBQfwAr7tsCmc tAfsBU9kBVJrcuzzb921JoIe i7lkXLCqoIGpMGikTYK5C56h b3I6 YHCnKKTjEPF2vVN1oU6ziYgy bjogbGVmdDsgdmVydGljYWwt VCoaY535LVEngEbyUvGmkSyk bnQg GHufVYk5S0OsDzgkkGY+PC90 VVSbVP30tVUuzKNzh9gduXw7 AuPtFBOwSDU5xLawRNibt2Mw ZXIt M96cpFWfg5H8VAIzxNipeUTg RgNfeCG7wY4iIDhmubbha0tf vgleEauul7zlqo92iF29E33h IHdp MJVdARAuPKVmGHMiqLguld5n gS8tHy6+DVTgvBG9nZL6nI7c WASxIfH0RVhtD511ZnVpyQPb Pjxj s4nhy3numLi5NrV7HWJsexOq yUgkIVW5l6CaWt64T45vMXdr CUGzDQIrTNFmEKCdjHkefo4k dG9w Ii8+LRCmtWK2tIL0bT0uWxZh DdB2XLmfW050VuPtaSRcKbzk W02cB7WyrFS+BIYvZwv5SFBf dHls EC0jtEWuATbaBo8kWPR5RbWo XnKmNMwhR5JzBYKvrvqjsgii hER9WUHxSPHamI56Sm6eoYth MTBw fIRQyC4fqmuyr1kalzqbIvUg MCZlEFj1ECi8PNOicXuaSpNu PGW8JkF1YKI6aEZrrB4tfWao bjog zV9xS1LvQKVqzxfaMm76rK2k HuUkJoI3SYupLxb+T90GD2mN LCBBTUFOREEgREFXTjwvdGQ+ PHRk SFK5jSlsJYxnQXTjcA8cAZBu I1m9CaOlHyG1JJxyB8QjGGNj cxlqWg88kI4xHiBzSnL0MUxw O2Zv snA8GQNbvQXsGTvoGLS4F35k v2K6HOLtRESpWJH5yVB7lU3l bGlnbjogbGVmdDsgdmVydGlj YWwt HDhxL204RPYkfOxgAeP8PwKh JuT1BUB8H1WjHkg0NZNtvIgs OH7txSEdAXvbCy3mkSijqGnr MC4w HWNxhrtuDHDvgY6aBGEzeRVb lGtyVD0aGQAbcmusb054TrZa WCY1PRIunPHtA7FqsK4eUmXx MDAw HRLcP4HprDEuKYqlO563RZfi BiV0VHYlngXhM3ZpOGRycBad XuX0z1O5Bk59JYOVOXShcpdg dGQ+ STHaJHF2rMaqXHkoUDBdsW4x KXIfN1z9DfVuGlS3HNsxE5Hy TLPpbsiuVn58oI8jGvZlQgS7 MGlu D4QymfT8PTShxEBeXLsdQJR1 I68wp1A3VBAqBDWhOLR5bFR4 mI0kpBotlxtwwMZwjEwcifUc dGlj UPzrJNamJ969VLOocLleNfER TUFMRTwvdGQ+FTWwXPS6jNwy IRvgXWNfgN9pNYFvT6n8FjJx LjA1 NKxbP9JqGPIimfufGm09aA3g AjEbLwP2EUdjB7JfbqP3JYCe iJRmMErmTSR7F55rz8Z3PJVv MDAw BPF4rLB6nB8wvIqcqcvmaBTb dScxndTnnEgaELybMCzyI737 HUCdlAnwNpAiSUNjCZ1obNop dGQ+ ER61ux91F0BpGtbuIbl7BLGh XNP7zRR3iO3bVGCcBZwjs6N1 iCZ4S4AwmjRhlc5vq6izHDLe ZTog J94xjXMbx1I1MOVhvEP0BWNx nWjoDjLebY48Nkf+PGNvbGdy n7ZgVmooj6fga1xdlRq0KsYg JSIg evVroAroVQF0c7YvPa64J74i IHdpZHRoPSIzMCUiIHZhbGln od8nuR8gMo2+TCHtfRD0qLF9 aD0i IwWxPxX8ZEzlB578GtTssGRq Ciyud1wll1hhpRq6BcFyMZAq fkUbsIcjVKP6v1VdVi09I1Hv bGdy f7LiIyw5ox88hPNea2O6kSV3 Z4XkIWKodvzstVXrjLkePF8g TBFwszsvNUKjyQ6eQOEvA5a4 OiAw ScS3VByeI8OwpnB3VDGnaUNv PAZeuFAEfA4lxdrqz8lclakb MnHwDLTuLJl6NGw4JDZxsNga OiBs GGI1DzP1GPQ5hDWyoB0haUiz aeyyuZ5rGce+NLa8t5xwyEIq QK4quNG4BG66UT63qTCsm0Q6 bGU9 K6BjNDXaiwpgukwapDY4ZWPi TVYzcJ09Hz8cqFxjVz1xZJBl XDM0ZPQheJIeX4OtjM2pAjAn MDAw ZXZnD3YcgWFbNGwrW584SUzs GeD7HUQbrhWlH9AhITSxcIzk PzJ7i3E2He2DFZ54IR49UQ89 dGQg z3A8gKF4N3KmQBCpomhwvrdi rPN3HZVbKZSkjC62Rj6yxQfm Mb6lPLSyFWU8XMEkgKTjZ5Yt bG9y VtXrKZLzCYKfN3ArhDXzTLut G724WCbsClJ2UHEkafAvC5Ep EJYboBmaWoK3w1N5Qn3DCw42 PC90 GM05mKSnk3T0hEN8T6ZaTIYz xldndgvnaEQ1RXQuFTWhgB84 Cr1mrXzlYn9rVUNwULD6GOVs bWVz D5ZkxG2zEnIfPPOgYKTlE7Py bLPtWQjrO167PYzfKoY7UUFg qxPbM1VpUZQxhLkpJzI9d3N7 Jz5Q JCrbndu1A0RkSxsllCS+PC90 UWNzLA15vVCzgWCmu9udqNc2 WgTrEIPxIRK7nAypZVroq3Ht ZXIt Y29 (more content not included)... [facility] Coding Summary HTMLBase 64 XgerdqpnCPw4iOl+PGhlYWQ+ CR6JQUScV54keCItvN2uZ4DE TElOSywgQVBQTElOSyIgbmFt MD8xeFRrOPKb IC8+MP5qFJXgUgqqfAMzj7I2 rPL0L44yka8gEZbivAW9UYMm HmIqfbcnw5pbgDb5HLczMkrj OyBt YVUeeS56LRD6lB70Xu30kSLr xMAhb5ovaAb8KaJySXLsCOX0 fHubERtio3NfBMSgU09kkNOq c2U6 DFEzuDeozOXoGwSqcEU6eI5n FNujlfpix6wrwnpwBnr1si07 bYEkj8R9jWD9O3OopgG8QLLu bGQg OtagtVLTcZ7kunwya7daaefg ClInWNWeGEo3TIi1HOWuoWvz OxAiPY23FCU2UJZhlcAlB1Tb LWFs tMxmSqA7r1G0Pi3LR0JOUtkm Y0WMPBZSEBzrsEQ+CO46wt12 U5SlKxrkJhp7RMDqCHB3uAK2 aD0n XFQwEXalj1M6iNQ2O1WiioDp ns4wf9aiEPVvCWnqN03lvQKp j4Q1IXLnxLH4UFXxmWavZxWg aG93 Oyc+DWMeoOlgz9PvBupht6fs b8zuzUb2RdjhQJClwfHeoWql NHQ9t1VcZo8zHJTxlMG5kOC0 aD0i IpWdGbA8EGzbX468HoUquMJi XtkrD74mM5UthNP+PHRyPjx0 JQQvmYdhUT3jD9OiMMGptfvr bGVm oCgzUQ6yRYFcaoayEMPlsJ3i FNOyH9h7CnGgZoZ4WXypA5Ct VGJsbxnyFl01jI5oMsPuXjS1 MGlu P9YrdaD7EDZugKBhKFkpGHM4 N77si4B8WZMsORKuHKC7gCY5 uG2asPiowckgxKMxuFqipjQg dGlj YRmuBVcaY338NOJwiEzfHiOu ZGluZyBEYXRlOiAgMTAvMjUv MjAyNDwvdGQ+TXSgSEG5bVhv PSAn xTJjWEirXp7jhVbduQliOM6l JWJtnfagBZPyhR7lXFZhhYCd sFasOS9dJVLhverzp109AaPi MHB0 QBVpxOIzP5RmgW9kUlJcJGWg ZZZcY6QgyRIfNJqrN962FNdg PqO0VOUaiiRoE3GrDRHwtQhk OiB0 h7N1Wl8Uv8SdpodzZ0CnnXTn WhOvRavfMLq7A8SjNokpaRI+ OV32QRFpBV81TRx9XIF8pYok PSdi ERHaY0PqmC8zEmTmBCLuVHLe Oyc+PHRhYmxlIHdpZHRoPScx VALlMhZccBlsYW7zJw3vYALz LWNv rBhaxMTiVbTym2rqDVBmFKbd BN0zpAqhE7UqxHN6IAUcv0a1 Uy37T76iZ9PosGX+PGNvbCB3 aWR0 hY7xPzCzSbV3ZKzcM550UdIh xYQzIfyjj3tgz5gtwPd0DaU7 QQFrsbNiiJlsJAZ5p5KcWl71 Y29s IHdpZHRoPSIxNSUiIHZhbGln ev0auA6wFo9+PHItyAF8yGW8 oJ9fJoLvIlR1IEtlY745LeSt cCIv Grgkg0nja7oxnXp5LuDkPPZo kmIqpGrbXRC9q8YnOk54S6Kl rTvra3BvNmq5cd45kGCkg0I3 bGU9 U8IlJZFiatfvmXRgrArrLC7s OEJyjvabLQRxlY9eHGUlE8c7 TzOwCwY1CGzbW8OuhnB9BBOz bGQg BFLdqSFCtK1ohnvnt6nqsxei MzCzCZIjRCe1TVb5KDTprVqp NpDxVJG0KdZ8XTI7pYUarI5k bGln nipvfF2sEzh+KAY0lIPnoGOY SP1lAwvxyZW+ZUWaGWW7eEzl HDtfVWUthG3dFVCwG2s4LwHy LjA1 OEswG3WowyM5DDHavGHkWPWl xYYAgC5bewlbv6tgsnnlKpOu DALzUEu0ZEx9PZYucQfdPxFi ZWZ0 KqV0FDM7bCBfjP3igSqnsexl eA2sBhn+PkpsbYtrPCT6IEm0 G6BbBfr9ONShyYrwXB3vxQNx ZGlu Sj0yzKxxbHybOJ3dSOUacapv h577GnDnp0tiNWRelFVvBYri EXS9K50sr3D8HKYbSSLqLBV5 dGV4 jM8rzZvptraifLCawDkgsmLe wDghKZakRLnbE689GHRraMgo ZpNoZCs0H4JqTue5XPLohUak ZT0n fXSfMJbmZy5zdInqiLtjHV1a OYXtwijgg692RaAkn5ngYHHu bNWoIIaxFQO1L77eo4H4UTBu MDAw CEK8yJP8eD7meWtnzsasnVQx bZwbvwLwzNhfVDkuRCbeH779 YBNiyWimHtEknUa5N1YfBjv7 ZCBz kIqyYK5tdZWsUUbwLr0fbWfu iAtuND9ySTMouergo186EzGs v4lqPIFcsNYfEBwhTCY7S81l b3I6 JMCvJORhCBP1bOO4yL6odOjd bjogbGVmdDsgdmVydGljYWwt PZezU105FWUeuOrwZtPgjJzj bnQg KAwcGYy9W3JsJmglnYS+PC90 WQJyJW01cWPirTPdy1scuVl6 OgYlBOKwCYN5lZiyTNyvc1Cv ZXIt P97syPKtk9Z0BBVvfVyffVAx FwTykKI7nI3nERfawxjwx0yr epkhQgkuz7ixgo77dA54H74u IHdp GTFiKGUzCGBeRTRddDdsfi4y iI7eEf0+YYJrhAB3kQZ1aG6l TMTzZlX1NFouL669AdQupKJo Pjxj j4ktv0jhhGz8NpK8SALbriAb dTjxHLO8f2YtAy62L51bHAgm TJKbRHQgWNVuHOJbfRcqsf3p dG9w Ii8+PGYmtAC8eAQ8dN5uSbFz FiS0TAjpV575AmIthDWxSdic R93wF6FetQW+WUSwXkd9JTFp dHls RI8uxCAoMZbtOt3pMII5DbEu FbAuCNtlZ3KuUXNewrnqcihi pSF4JCFyCHMsjQ05Lt6bpNfd MTBw dHNLeF6ghtxxw0kxlxieAyOp OQEtQTl4VXv8VCQseKhqThDw MGP4AtA3ROJ9bSDxaI7yyKdi bjog cP3oE3DxBXNtazolHc57lE6d KwZxGyI7KVgsEdh+B30WH5qB LCBBTUFOREEgREFXTjwvdGQ+ PHRk QNQ3gJafGBjiGBOgtP0iAZNa U4z9LvRrFaW7ELkaX9CuYOCr gjbuTh86wA0iJuYaVpA9DNkp O2Zv swF4JWJybYTeKXolLCS4R47a q2L8GNFgUDHzAWR8iNA1tA3c bGlnbjogbGVmdDsgdmVydGlj YWwt SElrE380EQOqoZnePsB2WrUi JhV0WKZ0F1CpYxg6CELkdOef TQ5agLApBZqoPz5hjBhbvDan MC4w BTSjpgqgEMUtkE3xRQNgfMDg aBlkJH1gWZObowskt453WjLe NIF5ICCziJWrV1GzbE8cNcLr MDAw PUShH7RgmSUpZWgyG668HBxv ZvK9SMUklhQmA1NuWXNqpOqg YgP3b8K6Bl30YGNIKDDfwmoz dGQ+ HBXlHLS0aArhRFfsLBPteM9j KOBzW7d8TqWnHcV2OLoiH6Yo VBJwgsefTu87aD4lPjMhQoH8 MGlu I3CouxL0SULkvODkZNglJPW3 W93ry5L2BNFhKPEuOFN9eZG0 iB3sjXwcxzmwxRReiKpwuiBf dGlj DGlkDRziQ063SUSlsSanBiJX TUFMRTwvdGQ+JUGlBKZ2pOiu JMupCDMfmC2mNPVfB3z9QyKg LjA1 BGglO5QlNFJkexcxVz97uP0l SnNgXsJ3KEmqJ0JwvgS2FRDs uQSfMDqcDZK5E68un6D8JJQw MDAw VIO1dOM9wQ6ugAjqwfleaTQj aKyxfkIazLhcXJpyVMczL405 DFXtgOujRjTxQYDbZH6ddLvs dGQ+ ST25ra20T4RnUrotHwq5ECMh BGB1fLI6pT5gRJMvPHjzy6X4 tVX5N5OohsTfab3lw5rzZDTf ZTog N03smWUtv7O8PKKfcNP0YOFu hLicWhJxxI83Gcm+PGNvbGdy e9CvZpjbj2axw3govDn2LvSb JSIg fnNvuScbDAA4u1NwSh29H16z IHdpZHRoPSIzMCUiIHZhbGln kg7huW0hIl1+BCPodTC9tRH4 aD0i AmNiSzT9LMecR851TyVvnXDr Lhazn2qqc7xqgWg0DhJpCVIg yiGoaCefKGR0h3AbUb11Q0Jx bGdy z8CfQsy2ek37mIOor3J7gXL0 Y0AyTUDtzvyxdZYbcIoqFW6d NDGjsgogNXSepK8sQAWdR4c0 OiAw NoY1GFnnK2PssbI3NXKyyIJk OFIsjKXVwP1mbohnx7nkrhqz DtHkFHEnDWl9BMy5PAPogRtw OiBs XBL3XqD0HWS8bGNbnX0oeLqm upctxZ1yVop+MYl4w6dgkCPo AR6frTQ0NF92CW68lGFyn3C6 bGU9 O3PlTFFznojsvojnnNE4CGMw CRLzdM20Dq7cnFxdEm3sJUSx BOC4VEVfgVPbQ1ZshT4mBxUo MDAw TKBcX0XczQOvLOfxJ852TFbf SfP2CAUuloShQ1PpXKFueWcm VnB0r8Y6Xn8UFJ76TL42QQ69 dGQg b2N9yON8X4JkJRUucygsggkm yNT9FADrVAJiyH62Db0jnBej Ro7uNSTmPAH7FBTcfLUgT6Fs bG9y QmPmGOQrXKKcN9AcuIJhQBzw N338HIiqUiT1YRAycgWkG6Ly NTQbzZapAyM3a1G8Yk9KXs03 PC90 MV53rLGra1G8sOV8U3IjTQAb saedcdfgqZC1VAEvKNOjaU98 Qf5asKwiVi6pTXTfGXW4XTIw bWVz Z1NzhR2gIpMvAJQjQEDdX5Dc fISgODxxL263NCazQsC4OIHc lpCeP2AeAAAgcPcgDdC8h7I1 Jz5Q RQfnodp3F2FzOfpndGY+PC90 REDhXM01rUNhaIOxy8goyPw1 YtZsEIIdBUZ0uWboENqki6Fr ZXIt Y29 (more content not included)... Normal [facility] Consent Formson 01-15-2024 Consent Forms [id number] TIFF Normal [facility] .Auto Diff 1on 01-14-2024 Auto Braxton % 6 % Normal 04-14 [facility] Comment on above: Performed By: #### 1 [id number], 0154261, 9474358376, 2437375853, 5840102, 70329591, [id number] ####[facility] (DEFAULT)[address] [place] [address] 09854 Baso Abs# 0.0 x10 Normal 0.0-0.2 [facility] Comment on above: Performed By: #### 1 [id number], 2354505, 4839715645, 5959302910, 0987557, 29234409, 2744486878 ####[facility] (DEFAULT)[address] [place] [address] 70298 Basophils/100 WBC (Bld) 0.7 % Normal 0.2-2.0 [facility] Comment on above: Performed By: #### 1 [id number], 2907378, 4555870605, 6211003137, 2838466, 35689738, 6359178704 ####[facility] (DEFAULT)[address] [place] [address] 98363 Eos Abs# 0.1 x10 Normal 0.0-0.4 [facility] Comment on above: Performed By: #### 1 049235465, 1738924, 2025374685, 5660787563, 1017095, 20778711, 0875285202 ####[facility] (DEFAULT)[address] [place] [address] 76777 Eosinophils/100 WBC (Bld) 1.3 % Normal 0.9-4.0 [facility] Comment on above: Performed By: #### 1 [id number], 6682933, 2025569576, 5440062894, 9354894, 72285086, 1149401189 ####[facility] (DEFAULT)[address] [place] [address] 97298 Lymph Abs# 1.6 x10 Normal 1.3-2.9 [facility] Comment on above: Performed By: #### 1 338395154, 1739238, 6519868033, 5763726312, 6264801, 35691082, 7219417138 ####[facility] (DEFAULT)[address] [place] [address] Lymphocytes/100 WBC (Bld) 25 % Normal 14-48 [facility] Comment on above: Performed By: #### 1 165381354, 6344880, 5930840449, 7351456810, 8483081, 30203492, 4462333960 ####[facility] (DEFAULT)[address] [place] [address] Braxton Abs# 0.4 x10 Normal 0.0-0.8 [facility] Comment on above: Performed By: #### 1 [id number], 5101005, 8224494393, 9047966459, 1969595, 92695792, 1628154495 ####[facility] (DEFAULT)[address] [place] [address] Neut Abs# 4.2 x10 Normal 1.5-9.2 [facility] Comment on above: Performed By: #### 1 448626560, 5947047, 1519800934, 2397633239, 6219809, 19880592, 0726911838 ####[facility] (DEFAULT)[address] [place] [address] Neutrophils/100 WBC (Bld) 67 % Normal 44-88 [facility] Comment on above: Performed By: #### 1 425589544, 9925952, 2628030133, 2116443006, 5736149, 41192158, 4546065392 ####[facility] (DEFAULT)[address] [place] [address] Basophils Auto (Bld) [#/Vol] on 01-14-2024 Basophils (Bld) [#/Vol] Automated basophil count 0.0-0.2 [facility] Basophils/100 WBC Auto (Bld) on 01-14-2024 Basophils/100 WBC (Bld) Automated basophil % 0. 2-2.0 [facility] CBC w/ Auto Diffon Erythrocyte distribution width (RBC) [Ratio] 14.5 % Normal 11.5-15.0 [facility] Comment on above: Performed By: #### 1 [id number], 7700139, 9132889087, 8460297113, 5395669, 36577229, 2572820472 ####[facility] (DEFAULT)[address] [place] [address] Hematocrit (Bld) [Volume fraction] 37.9 % Normal 33.7-40.4 [facility] Comment on above: Performed By: #### 1 708847401, 8418357, 2935097542, 4084256273, 1079168, 17010641, 0654012339 ####[facility] (DEFAULT)[address] [place] [address] 39267 Hemoglobin (Bld) [Mass/Vol] 12.3 g/dL Normal 11.3-15.9 [facility] Comment on above: Performed By: #### 1 017927712, 3450075, 5571376448, 4855668535, 0554949, 39436830, 2336240449 ####[facility] (DEFAULT)[address] [place] [address] 28802 Man Diff? Auto Invalid Interpretation Code [facility] Comment on above: Performed By: #### 1 [id number], 3936492, 8677442838, 2670676863, 6263468, 45301507, 8759249856 ####[facility] (DEFAULT)[address] [place] [address] 89360 MCH (RBC) [Entitic mass] 27 pg Normal 24-34 [facility] Comment on above: Performed By: #### 1 052925773, 2507161, 9767838811, 8863806692, 1179530, 22338116, 5694317066 ####[facility] (DEFAULT)[address] [place] [address] 97770 MCHC (RBC) [Mass/Vol] 33 g/dL Normal 26-37 [facility] Comment on above: Performed By: #### 1 069611135, 5550977, 2796519421, 2139869437, 2803782, 36322796, 1153141453 ####[facility] (DEFAULT)[address] [place] [address] 16444 MCV (RBC) [Entitic vol] 84 fL Normal 81-100 [facility] Comment on above: Performed By: #### 1 180444623, 8283889, 6722820173, 9396812503, 9305036, 88554667, 3360041359 ####[facility] (DEFAULT)[address] [place] [address] 34597 Platelet 270 x10 Normal 138-427 [facility] Comment on above: Performed By: #### 1 084084506, 7335221, 2388291185, 9866048623, 7599100, 53407718, 4944950669 ####[facility] (DEFAULT)[address] [place] [address] 73212 Platelet mean volume (Bld) [Entitic vol] 7.4 fL Normal 6.3-10.2 [facility] Comment on above: Performed By: #### 1 198749841, 0845459, 7964895739, 0521771787, 0776282, 10158271, 0234107841 ####[facility] (DEFAULT)[address] [place] [address] 02192 RBC 4.53 x10 Normal 3.70-5.30 [facility] Comment on above: Performed By: #### 1 171084634, 5063566, 5908438022, 9609522512, 8331910, 49489829, 8893156712 ####[facility] (DEFAULT)[address] [place] [address] 87122 WBC 6.3 x10 Normal 3.5-10.5 [facility] Comment on above: Performed By: #### 1 178510607, 7698950, 9716763233, 5994999122, 7389425, 05950107, 6261016986 ####[facility] (DEFAULT)[address] [place] [address] CMP Standardon 01-14-2024 Breakpoint Chem Normal [facility] Comment on above: Performed By: #### 1 324523171, 2483030, 8744012866, 6125591898, 2816096, 16661681, 9473835181 ####[facility] (DEFAULT)[address] [place] [address] eGFR Non AA >60 Invalid Interpretation Code [facility] Comment on above: Performed By: #### 1 929510646, 1634494, 6714951090, 7040806886, 6809567, 39366319, 6701984046 ####[facility] (DEFAULT)[address] [place] [address] eGFR AA >60 Invalid Interpretation Code [facility] Comment on above: Performed By: #### 1 297747847, 4715716, 7507263998, 7663464253, 2600721, 72395964, 8491149150 ####[facility] (DEFAULT)[address] [place] [address] 19905 Albumin [Mass/Vol] 3.6 g/dL Normal 3.5-5.0 [facility] Comment on above: Performed By: #### 1 603037314, 2172309, 1193480355, 2047146414, 7390980, 63529829, 6679149925 ####[facility] (DEFAULT)[address] [place] [address] 97963 Albumin/Globulin [Mass ratio] 1.2 {ratio} Low 1.4-2.6 [facility] Comment on above: Performed By: #### 1 297065470, 8775840, 6089817309, 1932222153, 1164104, 79905370, 4087344897 ####[facility] (DEFAULT)[address] [place] [address] Alk Phos 73 IU/L Normal 32-91 [facility] Comment on above: Performed By: #### 1 701329969, 0857315, 5211246244, 3950021203, 3468120, 71230922, 1058591943 ####[facility] (DEFAULT)[address] [place] [address] 85828 ALT [Catalytic activity/Vol] 16.0 U/L Normal 14.0-54.0 [facility] Comment on above: Performed By: #### 1 953276926, 2748112, 7666099084, 9034215138, 1901107, 91136473, 9494846900 ####[facility] (DEFAULT)[address] [place] [address] Anion gap [Moles/Vol] 6.9 mmol/L Normal 5.0-19.0 [facility] Comment on above: Performed By: #### 1 741560519, 2496456, 7954982807, 0664866004, 9183672, 63212033, 8075411522 ####[facility] (DEFAULT)[address] [place] [address] 81057 AST [Catalytic activity/Vol] 19 U/L Normal 15-41 [facility] Comment on above: Performed By: #### 1 108412524, 8230373, 3972783844, 0925170544, 0570801, 27456108, 0075047881 ####[facility] (DEFAULT)[address] [place] [address] 90476 Bili Total 0.2 mg/dL Low 0.3-1.2 [facility] Comment on above: Performed By: #### 1 718627202, 8569124, 7944847994, 1741901430, 4749097, 90855995, 2137109350 ####[facility] (DEFAULT)[address] [place] [address] 28759 Calcium [Mass/Vol] 8.4 mg/dL Low 8.9-10.3 [facility] Comment on above: Performed By: #### 1 220968316, 5825791, 5963726362, 1533482954, 7463526, 34403678, 7507538370 ####[facility] (DEFAULT)[address] [place] [address] 76249 Chloride [Moles/Vol] 108 mmol/L Normal 101-111 [facility] Comment on above: Performed By: #### 1 371360977, 4124187, 1111311405, 5868053586, 5898308, 73523884, 9092179409 ####[facility] (DEFAULT)[address] [place] [address] 15852 CO2 [Moles/Vol] 24 mmol/L Normal 21-32 [facility] Comment on above: Performed By: #### 1 534769589, 9739125, 2089451743, 7908230890, 8248205, 55050522, 9599889854 ####[facility] (DEFAULT)[address] [place] [address] 11099 Creatinine [Mass/Vol] 0.78 mg/dL Normal 0.60-1.30 [facility] Comment on above: Performed By: #### 1 628738817, 8184345, 4729320860, 2657251193, 0651045, 41102074, 5505780296 ####[facility] (DEFAULT)[address] [place] [address] 71836 Globulin (S) [Mass/Vol] 2.9 g/dL Normal 1.5-4.3 [facility] Comment on above: Performed By: #### 1 636112613, 8954169, 1247429663, 8668923702, 8697371, 79070255, 0490463368 ####[facility] (DEFAULT)[address] [place] [address] 05878 Glucose [Mass/Vol] 88.0 mg/dL Normal 74.0-118.0 [facility] Comment on above: Performed By: #### 1 866909059, 6432629, 6444421561, 6892056138, 1475296, 49285546, 8780334182 ####[facility] (DEFAULT)[address] [place] [address] 34098 Osmolality 270 mOsm/L Invalid Interpretation Code [facility] Comment on above: Performed By: #### 1 [id number], 7088534, 6025874274, 2058525402, 5146394, 42905525, 0953067984 ####[facility] (DEFAULT)[address] [place] [address] 08655 Potassium [Moles/Vol] 3.9 mmol/L Normal 3.6-5.1 [facility] Comment on above: Performed By: #### 1 043465372, 5689014, 6764263327, 6051422823, 1840716, 41262500, 7535376120 ####[facility] (DEFAULT)[address] [place] [address] 89671 Protein [Mass/Vol] 6.5 g/dL Normal 6.5-8.1 [facility] Comment on above: Performed By: #### 1 581339861, 2085932, 8089133160, 2098728354, 5836461, 24090432, 7396216505 ####[facility] (DEFAULT)[address] [place] [address] 19857 Sodium [Moles/Vol] 135.0 mmol/L Low 136.0-144 . 0 [facility] Comment on above: Performed By: #### 1 046946116, 2752347, 5299768768, 5534636992, 1453489, 47152525, 7705523796 ####[facility] (DEFAULT)[address] [place] [address] 80526 Urea nitrogen [Mass/Vol] 15 mg/dL Normal 8-26 [facility] Comment on above: Performed By: #### 1 799247598, 3873427, 2459823501, 5670943125, 7557347, 11127186, 7014329441 ####[facility] (DEFAULT)[address] [place] [address] 23255 Urea nitrogen/Creatinine [Mass ratio] 19.2 mg/mg High 4.6-16.2 [facility] Comment on above: Performed By: #### 1 582561213, 4787950, 8181493054, 7147399918, 1938678, 57307645, 5066838617 ####[facility] (DEFAULT)[address] [place] [address] CT Ang[address] Headon 2023 Ct angiography head [...] DO 01/14/24 8:11 am Technologist: FREEMAN Goldstein [facility] CT Head or Brain w/o [...] hemorrhage or mass effect. Final Dictated by: Clayton Wright MD Dictated DT/TM: 01/14/24 6:44 Signed (Electronic Signature): Clayton Wright MD 01/14/24 6:53 am Technologist: KALYAN Goldstein [facility] ED Clinical Summaryon 2023 ED Clinical Summary [facility] - Emergency Department [address] [place], [place] [id number] ED Clinical Summary PERSON INFORMATION Name: KARUNA DUMONT Age: 43 Years Sex: FEMALE : 1980 MRN: Acct#: Visit Reason: Headache; HEADACHE Arrival: 01/14/2024 04:59:27 Discharge: 01/14/2024 09:46:00 LOS: 000 04:47 Check In: 01/14/2024 04:59:27 Checkout:01/14/2024 09:46:00 Address: [facility] [address] PCP: Johnathon Winter MD PROVIDER INFORMATION Provider [...] evaluation of headache. 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 Stated headache is [...] Past Substance Use (more content not included)... [facility] ED Note - Physicianon 2023 ED [...] evaluation of headache. 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 Stated headache is [...] Plan Diagnosis Sudden onset of severe headache (UAM15-NA R51.9, Discharge, Medical) Headache, unspecified (MRG96-RM R51.9, Medical) Plan Condition: Improved, Stable. Disposition: Disch (more content not included)... Normal [facility] ED Patient Summaryon 024 ED Patient Summary [facility] - Emergency Department [address] [place] [address] PATIENT DISCHARGE INSTRUCTIONS Patient Information Name: KARUNA DUMONT Age: 43 Years Date of : 1980 Reason For Visit: Headache; HEADACHE Arrival Time: 01/14/2024 04:59:27 Primary Care Physician: Johnathon Winter MD Attending Physician: Santy Mckeon MD Comment: Visit Diagnosis: Diagnoses This Visit Headache (42285898) Headache, unspecified (R51.9) Sudden onset of severe headache (R51.9) The Pharmacy at [facility] is open Monday through Monday from 9A [...] alcohol and/or drug addiction problems; contact the [facility] 24/10 Crisis Hotline -Text 5VTNO to 283853. If you received any narcotics, sedation, or [...] legal documents With: Address: When: Johnathon Winter [address] [place] [address] Business (1) Within 2 to 4 days [...] and treatment you received today in the [facility] Emergency Department were for an urgent problem and are not intended as complete care. It is important for you to follow up with a doctor, nurse practitioner, or physician?s orthopedic assistant for ongoing care. If your symptoms [...] if necessary. [facility] Emergency Department has provided you with a complete list of medications post discharge. Please inform your data power consultant/provider of your visit and for further instruction [...] amine (amphetamine-dextroa (more content not included)... Normal [facility] Eosinophils/100 WBC Auto (Bl d)on 01-14-2024 Eosinophils/100 WBC (Bld) Automated eosinophil % 0.9-4.0 [facility] Erythrocyte distribution wid th Auto (RBC) [Ratio]on 01-14-2024 Erythrocyte distribution width (RBC) [Ratio] Erythrocyte distribution width [Ratio] by Automated count 11.5-15.0 [facility] Estimated glomerular filtrat ion rate (GFR) non- Americanon 01-14-2024 GFR/1.73 sq M.predicted among non-blacks MDRD (S/P/Bld) [Vol rate/Area] Estimated glomerular filtration rate (GFR) non- [facility] Extra Greenon 01-14-2024 Tube Collected Yes Invalid Interpretation Code [facility] Comment on above: Performed By: #### 1 [id number] ####[facility] (DEFAULT)[id number] [place] [address] Globulin Calc (S) [Mass/Vol] on 01-14-2024 Globulin (S) [Mass/Vol] Serum globulin measurement by calculation (mass/volume) 1.5-4.3 [facility] Hematocrit Auto (Bld) [Volum e fraction]on 01-14-2024 Hematocrit (Bld) [Volume fraction] Hematocrit [Volume Fraction] of Blood by Automated count 33.7-40.4 [facility] Hemoglobin [Mass/volume] in Bloodon 01-14-2024 Hemoglobin (Bld) [Mass/Vol] Hemoglobin [Mass/volume] in Blood 11.3-15.9 [facility] Laboratory - Chemistry and C hemistry - challengeon 01-14-2024 Albumin [Mass/Vol] 3.6 g/dL 3.5-5.0 [facility] ALP [Catalytic activity/Vol] 73 U/L 32-91 [facility] ALT [Catalytic activity/Vol] 16.0 U/L 14.0-54.0 [facility] AST [Catalytic activity/Vol] 19 U/L 15-41 [facility] Bilirubin [Mass/Vol] 0.2 mg/dL Low 0.3-1.2 [facility] Calcium [Mass/Vol] 8.4 mg/dL Low 8.9-10.3 [facility] Chloride [Moles/Vol] 108 mmol/L 101-111 [facility] CO2 [Moles/Vol] 24 mmol/L 21-32 [facility] Creatinine [Mass/Vol] 0.78 mg/dL 0.60-1.30 [facility] GFR/1.73 sq M.predicted MDRD (S/P/Bld) [Vol rate/Area] mL/min/{1.73_m2} [facility] Glucose [Mass/Vol] 88.0 mg/dL 74.0-118.0 [facility] Potassium [Moles/Vol] 3.9 mmol/L 3.6-5.1 [facility] Protein [Mass/Vol] 6.5 g/dL 6.5-8.1 [facility] Sodium [Moles/Vol] 135.0 mmol/L Low 136.0-144 . 0 [facility] Urea nitrogen [Mass/Vol] 15 mg/dL - [facility] Urea nitrogen/Creatinine [Mass ratio] 19.2 mg/mg High 4.6-16.2 [facility] - Hematology and Cell countson 01-14-2024 ESR (Bld) [Velocity] 8 mm/h 0-20 [facility] Leukocytes [#/volume] correc mini for nucleated erythrocytes in Blood by Automated counon 01-14-2024 WBC corrected for nucl RBC Auto (Bld) [#/Vol] Leukocytes [#/volume] corrected for nucleated erythrocytes in Blood by Automated coun 3.5-10.5 [facility] Lymphocytes Auto (Bld) [#/Vo l]on 01-14-2024 Lymphocytes (Bld) [#/Vol] Lymphocytes [#/volume] in Blood by Automated count 1.3-2.9 [facility] Lymphocytes/100 WBC Auto (Bl d)on 01-14-2024 Lymphocytes/100 WBC (Bld) Lymphocytes/100 leukocytes in Blood by Automated count 1448 [facility] MCH Auto (RBC) [Entitic mass ]on 01-14-2024 MCH (RBC) [Entitic mass] MCH [Entitic mass] by Automated count [facility] MCHC Auto (RBC) [Mass/Vol]on 01-14-2024 MCHC (RBC) [Mass/Vol] MCHC [Mass/volume] by Automated count [facility] MCV Auto (RBC) [Entitic vol] on 01-14-2024 MCV (RBC) [Entitic vol] MCV [Entitic vol ume] by Automated count 81-100 [facility] Monocytes Auto (Bld) [#/Vol] on 01-14-2024 Monocytes (Bld) [#/Vol] Automated blood monocyte count 0.0-0.8 [facility] Monocytes/100 WBC Auto (Bld) on 01-14-2024 Monocytes/100 WBC (Bld) Automated monocyte % 1- 12 [facility] Neutrophils Auto (Bld) [#/Vo l]on 01-14-2024 Neutrophils (Bld) [#/Vol] Neutrophils [#/volume] in Blood by Automated count 1.5-9.2 [facility] Neutrophils/100 WBC Auto (Bl d)on 01-14-2024 Neutrophils/100 WBC (Bld) Automated neutrophil % 44-88 [facility] No Panel Informationon 01-13 Add Manual Differential Auto Auto F [place] Eosinophils # (Auto) 0.1 x10 0.0-0.4 [facility] Osmolality 270 mOsm/L [facility] Platelet mean volume Auto (B ld) [Entitic vol]on 01-14-2024 Platelet mean volume (Bld) [Entitic vol] Platelet mean volume [Entitic volume] in Blood by Automated count 6.3-10.2 [facility] Platelets Auto (Bld) [#/Vol] on 01-14-2024 Platelets (Bld) [#/Vol] Platelets [#/vol ume] in Blood by Automated count [id number] [facility] RBC Auto (Bld) [#/Vol]on RBC (Bld) [#/Vol] Erythrocytes [#/volu me] in Blood by Automated count 3.70-5.30 [facility] Sed Rateon 01-14-2024 Sed Rate 8 mm/hr Normal 0-20 [facility] Comment on above: Performed By: #### 1 [id number], [id number], [id number], [id number], [id number], [id number] ####[facility] (DEFAULT)[address] [place] [address] Serum or plasma albumin/glob ulin mass ratioon 01-14-2024 Albumin/Globulin [Mass ratio] Serum or plasma albumin/globulin mass ratio Low 1.4-2.6 [facility] Serum or plasma anion gap de terminationon 01-14-2024 Anion gap [Moles/Vol] Serum or plasma an ion gap determination 5.0-19.0 [facility] VITAMIN B12on 12-29-2023 Cobalamin (Vitamin B12) [Mass/Vol] 303 pg/mL 232 - 1245 pg/mL [facility] Comment on above: Performed at: [address] [id number] Data Entry Representative: Theron Roblero PhD, Phone: [phone] [facility] ALL CBC WITH AUTO DIFFon BASOPHILS ABSOLUTE AUTO 0.1 N [facility] Basophils/100 WBC (Bld) 0.8 % 0.2 - 2.0 % [facility] Eosinophils/100 WBC (Bld) 1.5 % 0.9 - 7.0 % [facility] Erythrocyte distribution width (RBC) [Ratio] 13.7 % 11.0 - 15.0 % [facility] Hematocrit (Bld) [Volume fraction] 41.5 % 36.0 - 48.0 % [facility] Hemoglobin (Bld) [Mass/Vol] 12.9 g/dL 12.0 - 16.0 g/dL [facility] IMMATURE GRANULOCYTES ABS AUTO 0.02 [facility] Immature granulocytes/100 WBC (Bld) 0.3 % 0.0 - 0.5 % [facility] Interpretation and review of laboratory results Abnormal [facility] LYMPHOCYTES ABSOLUTE AUTO 2.5 [facility] Lymphocytes/100 WBC (Bld) 34.0 % 20.5 - 60.0 % [facility] MCH (RBC) [Entitic mass] 27.4 pg 26.7 - 34.0 pg [facility] MCHC (RBC) [Mass/Vol] 31.1 g/dL 29.9 - 35.2 g/dL [facility] MCV (RBC) [Entitic vol] 88.3 fL 81.0 - 99.0 fL [facility] MONOCYTES ABSOLUTE AUTO 0.4 N [facility] Monocytes/100 WBC (Bld) 5.9 % 1.7 - 12.0 % [facility] NEUTROPHILS ABSOLUTE AUTO 4.2 [facility] Neutrophils/100 WBC (Bld) 57.5 % 43.0 - 75.0 % [facility] Platelet mean volume (Bld) [Entitic vol] 8.7 fL Low 9.5 - 13.5 fL [facility] TB EO # 0.1 [facility] TB PLT 279 [facility] RBC 4.70 [facility] WBC 7.3 [facility] MLR HEMOGLOBIN A1Con 024 Glucose [Mass/Vol] 97 mg/dL [facility] HbA1c (Bld) [Mass fraction] 5.0 % 4.5 - 6.2 % [facility] Comment on above: ADA RECOMMENDED LIMI T 4.0 - 6.0 ADA THERAPEUTIC TARGET < 7.0 ACTION SUGGESTED > 7.0 [facility] HCG ( test) Ql (U)o n 12-06-2023 Preg Test, Ur Negative [facility] Jose 12-06-2023 L Specimen: [id number] Received: 12/07/23 Status: NATHAN Guzmán Num: [id number] Spec Type: Surgical Subm Dr: Sanjeev Lopez Tissues: A Endometrium - Biopsy (EMBX) Procedures: HE/2, Gross/Micro L4 Age/ Patient Sex Location Account Attending Physician Karuna Dumont 43/F KATINA [id number] Sanjeev Lopez SPEC NUM: [id number] RECD: 12/07/23 [facility] NUM: [id number] GENEVA: 12/06/23- SUBM DR: Sanjeev Lopez ENTERED: 12/07/[address] [facility] DR: Bert,Lab SPEC TYPE: Surgical DEPT: ROLDAN THOMPSON ENTERED BY: [id number] RECV BY: [id number] ORDERED: HE/2, Gross/Micro L4 ORDERED: HE/2, Gross/Micro [...] are performed supporting the above interpretation Specimen: [id number] Received: 12/07/23 Status: NATHAN Guzmán Num: [id number] Spec Type: Surgical Subm Dr: Sanjeev Lopez Tissues: A Endometrium - Biopsy (EMBX) Procedures: HE/Melissa, Gross/Micro L4 Patient: JuliaKaruna [id number] (Continued) Specimen: [id number] Received: 12/07/23 (Continued) Signed (signature on file) Frida Kirby MD 12/12/23 2158 Specimen: [id number] Received: 12/07/23 Status: NATHAN Guzmán Num: [id number] Spec Type: Surgical Subm Dr: Sanjeev Lopez Tissues: A Endometrium - Biopsy (EMBX) Procedures: HE/Melissa, Gross/Micro L4 Patient: Karuna Dumont [id number] (Continued) Specimen: [id number] Received: 12/07/23 (Continued) CPT Codes 11427 Specimen: [id number] Received: 12/07/23 Status: NATHAN Guzmán Num: [id number] Spec Type: Surgical Subm Dr: Sanjeev Lopez Tissues: A Endometrium - Biopsy (EMBX) Procedures: HE/2, Gross/Micro L4 Patient: JuliaKaruna Radha [id number] (Continued) Signed (signature on file) Frida Kirby MD 12/12/232157 Normal [facility] ALL DHEA SULFATEon DHEA-SULFATE 40.8 ug/dL Abnormal 57.3 - 279.2 ug/dL [facility] METRO SEX BINDING HORMONE (S HBG), TESTOSTERONE, FREE AND BIOAVAILABLEon 12-02-2023 SEX HORM BINDING GLOB, SERUM 60.9 nmol/L 24.6 - 122.0 nmol/L [facility] Comment on above: Performed at: [address] [id number] Data Entry Representative: Theron Roblero PhD, Phone: [phone] No Panel Informationon 12-01 Interpretation and review of laboratory results Abnormal [facility] SRMCOH TESTOSTERONE FREE/TOT EQUILIBon 12-02-2023 FREE TESTOSTERONE(DIRECT) <0.2 0.0 - 4.2 pg/mL [facility] Comment on above: Performed at: [facility] [id number] [place], [place] [id number] Data Entry Representative: Theron Roblero PhD, Phone: [phone] Performed at: [facility] [address] [id number] Data Entry Representative: Katelynn Macdonald MD, Phone: [phone] Testosterone [Mass/Vol] ng/dL Abnormal 8 - 60 ng/dL [facility] Free testosterone measuremen t by LC-MS/MSon 11-29-2023 Testosterone Free [Mass/Vol] <0.2 pg/mL 0.0-4.2 [facility] Comment on above: Performed at: [facility] [address] [id number] Director: Theron Roblero PhD, Phone: [phone] at: [facility] [address] [id number] Director: Katelynn Macdonald MD, Phone: [phone] No Panel Informationon 11-28 Dehydroepiandrosterone Sulfate 40.8 ug/dL Abnormal 57.3-279.2 [facility] Sex Hormone Binding Globulin 60.9 nmol/L 24.6-122.0 [facility] Comment on above: Performed at: [facility] [address] [id number] Director: Theron Roblero PhD, Phone: [phone] Testosterone Level <3 ng/dL Abnormal 8-60 [facility] Activated partial thrombopla stin time (aPTT) in platelet poor plasma by coagulation aon 10-25-2023 aPTT Coag (PPP) [Time] 29.5 s 22.3-36.2 [facility] Basophils Auto (Bld) [#/Vol] on 10-25-2023 Basophils (Bld) [#/Vol] 0.1 10 3/uL 0.0-0.1 [facility] Basophils/100 WBC Auto (Bld) on 10-25-2023 Basophils/100 WBC (Bld) 1.1 % 0.2-2.[address] [facility] Eosinophils/100 WBC Auto (Bl d)on 10-25-2023 Eosinophils/100 WBC (Bld) 2.2 % 0.9-7.0 [facility] Erythrocyte distribution wid th Auto (RBC) [Ratio]on 10-25-2023 Erythrocyte distribution width (RBC) [Ratio] 14.5 % 11.0-15.0 [facility] Glucose mean value [Mass/vol ume] in Blood Estimated from glycated hemoglobinon 10-25-2023 Average glucose Estimated from glycated hemoglobin (Bld) [Mass/Vol] 88 mg/dL [facility] Hematocrit Auto (Bld) [Volum e fraction]on 10-25-2023 Hematocrit (Bld) [Volume fraction] 39.8 % 36.0-48.0 [facility] Hemoglobin [Mass/volume] in Bloodon 10-25-2023 Hemoglobin (Bld) [Mass/Vol] 12.6 g/dL 12.0-16.0 [facility] INR in Platelet poor plasma by Coagulation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 CG, LIP, MG, CDP, CMPX #### [place] [address] Data Entry Representative: Estevan Corcoran MD Monocytes (Bld) [#/Vol] 0.40 10*3/uL Normal 0.1-1.2 [facility] Comment on above: Performed By: #### H CG, LIP, MG, CDP, CMPX #### [place] [address] Data Entry Representative: Estevan Corcoran MD Monocytes/100 WBC (Bld) 8 % Normal 2-11 [facility] Comment on above: Performed By: #### H CG, LIP, MG, CDP, CMPX #### [place] [address] Data Entry Representative: Estevan Corcoran MD Neutrophil (Seg) 60 % Normal 36-66 [facility] Comment on above: Performed By: #### H CG, LIP, MG, CDP, CMPX #### [place] [address] Data Entry Representative: Estevan Corcoran MD Platelet mean volume (Bld) [Entitic vol] 7.6 fL Normal 6.0-12.0 [facility] Comment on above: Performed By: #### H CG, LIP, MG, CDP, CMPX #### [place] [address] Data Entry Representative: Estevan Corcoran MD Platelets (Bld) [#/Vol] 277 10*3/uL Normal 140-450 [facility] Comment on above: Performed By: #### H CG, LIP, MG, CDP, CMPX #### [place] [address] Data Entry Representative: Estevan Corcoran MD RBC (Bld) [#/Vol] 5.36 10*6/uL High 4.0-5.2 [facility] Comment on above: Performed By: #### H CG, LIP, MG, CDP, CMPX #### [place] [address] Data Entry Representative: Estevan Corcoran MD WBC (Bld) [#/Vol] 5.6 10*3/uL Normal 3.5-11.0 [facility] Comment on above: Performed By: #### H CG, LIP, MG, CDP, CMPX #### [address] [id number] Data Entry Representative: Estevan Corcoran MD CT ABDOMEN PELVIS W [...] Mishra MD 01/03/22 Final result Normal [facility] CT ABDOMEN PELVIS W IV CONTR AST Additional Contrast? Noneon 01-03-2022 1. Fluid within smal l bowel loops and ascending colon which can be seen as sequela of a gastroenteritis. 2. Prior appendectomy. Prior cholecystectomy. 3. Fatty liver. 4. Mild colonic diverticulosis. 5. Small midline fat containing periumbilical hernia. 6. No clear evidence for small bowel obstruction. [facility] RIS CONSOLIDATED EXAMINATION: CT OF [...] L5-S1. Mild levoscoliosis of the lumbar spine. [facility] Papito Mishra MD [...] No clear evidence for small bowel obstruction. [employer] Phone: Radiology Study observation (narrative) [employer] Phone: CT ABDOMEN PELVIS W IV CONTR AST Additional Contrast? NoneOrdered By: Papito Mishra on 01-03-[address] [facility] Work Phone: Comp Metabolic Pr/rfx MGon 1 ALT [Catalytic activity/Vol] 28 U/L Normal 5-33 [facility] Comment on above: Performed By: #### H CG, LIP, MG, CDP, CMPX #### [address] [address] Data Entry Representative: Estevan Corcoran MD (cont.) [facility] Comment on above: Result Comment: Aver age GFR for 30-39 years old: 107 mL/min/1.73sq m Chronic Kidney Disease: <60 mL/min/1.73sq m Kidney failure: <15 mL/min/1.73sq m eGFR calculated using average adult body mass. Additional eGFR calculator available at: http://www.Flexiant/multiple_crcl_2012.htm Performed By: #### H CG, LIP, MG, CDP, CMPX #### [address] [address] Data Entry Representative: Estevan Corcoran MD Albumin [Mass/Vol] 4.3 g/dL Normal 3.5-5.2 [facility] Comment on above: Performed By: #### H CG, LIP, MG, CDP, CMPX #### [id number] [place] [address] Data Entry Representative: Estevan Corcoran MD Albumin/Glob Ratio 1.4 Normal 1.0-2.5 [facility] Comment on above: Performed By: #### H CG, LIP, MG, CDP, CMPX #### [address] [address] Data Entry Representative: Estevan Corcoran MD Alkaline Phos 105 U/L High 35-104 [facility] Comment on above: Performed By: #### H CG, LIP, MG, CDP, CMPX #### [place] [address] Data Entry Representative: Estevan Corcoran MD Anion gap [Moles/Vol] 13 mmol/L Normal 9-17 [facility] Comment on above: Performed By: #### H CG, LIP, MG, CDP, CMPX #### [place] [address] Data Entry Representative: Estevan Corcoran MD AST [Catalytic activity/Vol] 26 U/L Normal <32 [facility] Comment on above: Performed By: #### H CG, LIP, MG, CDP, CMPX #### [place] [address] Data Entry Representative: Estevan Corcoran MD Bilirubin [Mass/Vol] 0.3 mg/dL Normal 0.3-1.2 [facility] Comment on above: Performed By: #### H CG, LIP, MG, CDP, CMPX #### [place] [address] Data Entry Representative: Estevan Corcoran MD Calcium [Mass/Vol] 8.7 mg/dL Normal 8.6-10.4 [facility] Comment on above: Performed By: #### H CG, LIP, MG, CDP, CMPX #### [place] [address] Data Entry Representative: Estevan Corcoran MD Chloride [Moles/Vol] 104 mmol/L Normal 98-107 [facility] Comment on above: Performed By: #### H CG, LIP, MG, CDP, CMPX #### [address] [address] Data Entry Representative: Estevan Corcoran MD CO2 [Moles/Vol] 21 mmol/L Normal 20-31 [facility] Comment on above: Performed By: #### H CG, LIP, MG, CDP, CMPX #### [place] [address] Data Entry Representative: Estevan Corcoran MD Creatinine [Mass/Vol] 0.60 mg/dL Normal 0.50-0.90 [facility] Comment on above: Performed By: #### H CG, LIP, MG, CDP, CMPX #### [place] [address] Data Entry Representative: Estevan Corcoran MD GFR, Amer >60 Normal >60 [facility] Comment on above: Performed By: #### H CG, LIP, MG, CDP, CMPX #### [place] [address] Data Entry Representative: Estevan Corcoran MD GFR,non Amer >60 Normal >60 [facility] Comment on above: Performed By: #### H CG, LIP, MG, CDP, CMPX #### [place] [address] Data Entry Representative: Estevan Corcoran MD Glucose [Mass/Vol] 105 mg/dL High 70-99 [facility] Comment on above: Performed By: #### H CG, LIP, MG, CDP, CMPX #### [place] [address] Data Entry Representative: Estevan Corcoran MD Potassium [Moles/Vol] 3.5 mmol/L Low 3.7-5.3 [facility] Comment on above: Performed By: #### H CG, LIP, MG, CDP, CMPX #### [place] [id number] Data Entry Representative: Estevan Corcoran MD Protein [Mass/Vol] 7.4 g/dL Normal 6.4-8.3 [facility] Comment on above: Performed By: #### H CG, LIP, MG, CDP, CMPX #### [place] [address] Data Entry Representative: Estevan Corcoran MD Sodium [Moles/Vol] 138 mmol/L Normal 135-144 [facility] Comment on above: Performed By: #### H CG, LIP, MG, CDP, CMPX #### [address] [place] [id number] Data Entry Representative: Estevan Corcoran MD Urea nitrogen [Mass/Vol] 12 mg/dL Normal 6-20 [facility] Comment on above: Performed By: #### H CG, LIP, MG, CDP, CMPX #### [place] [address] Data Entry Representative: Estevan Corcoran MD Comprehensive Metabolic Pane l w/ Reflex to MGon 01-03-2022 Albumin [Mass/Vol] 4.3 g/dL 3.5 - 5.2 g/dL [facility] Albumin/Globulin [Mass ratio] 1.4 {ratio} 1 - 2.5 [facility] ALP (Bld) [Catalytic activity/Vol] 105 U/L High 35 - 104 U/L [facility] ALT [Catalytic activity/Vol] 28 U/L 5 - 33 U/L [facility] Anion gap [Moles/Vol] 13 mmol/L 9 - 17 mmol/L [facility] AST [Catalytic activity/Vol] 26 U/L NINF - 32 U/L [facility] Bilirubin [Mass/Vol] 0.3 mg/dL 0.3 - 1 .2 mg/dL [facility] Calcium [Mass/Vol] 8.7 mg/dL 8.6 - 10. 4 mg/dL [facility] Chloride [Moles/Vol] 104 mmol/L 98 - 10 7 mmol/L [facility] CO2 [Moles/Vol] 21 mmol/L 20 - 31 mmol/L [facility] Creatinine [Mass/Vol] 0.6 mg/dL 0.5 - 0.9 mg/dL [facility] GFR >60 60 - PI NF mL/min [facility] GFR Non- >60 60 - PINF mL/min [facility] GFR/1.73 sq M.predicted MDRD (S/P/Bld) [Vol rate/Area] [facility] Comment on above: Average GFR for 30-3 9 years old: 107 mL/min/1.73sq m Chronic Kidney Disease: <60 mL/min/1.73sq m Kidney failure: <15 mL/min/1.73sq m eGFR calculated using average adult body mass. Additional eGFR calculator available at: http://www.[employer]iant/multiple_crcl_2012.htm Glucose [Mass/Vol] 105 mg/dL High 70 - 99 mg/dL [facility] Interpretation and review of laboratory results Abnormal [facility] Potassium [Moles/Vol] 3.5 mmol/L Low 3.7 - 5.3 mmol/L [facility] Protein [Mass/Vol] 7.4 g/dL 6.4 - 8.3 g/dL [facility] Sodium [Moles/Vol] 138 mmol/L 135 - 144 mmol/L [facility] Urea nitrogen (BldV) [Mass/Vol] 12 mg/dL 6 - 20 mg/dL [facility] HCG Qualitative, Serumon hCG Qual Negative NEGATIVE [facility] Comment on above: Specimens with hCG l evels near the threshold of the test (25 mIU/mL) may give a negative or indeterminate result. In such cases, another test should be performed with a new specimen in 48-72 hours. If early is suspected clinically in this setting, correlation with quantitative serum b-hCG level is suggested. [facility] has confirmed the use of plasma for this test. This has not been cleared or approved by the U.S. Food and Drug Administration. The FDA has determined that such clearance is not necessary. [facility] HCG Screen, Bloodon 01-04-20 22 HCG Screen, Blood Negative Normal NEG [facility] Comment on above: Result Comment: Spec imens with hCG levels near the threshold of the test (25 mIU/mL) may give a negative or indeterminate result. In such cases, another test should be performed with a new specimen in 48-72 hours. If early is suspected clinically in this setting, correlation with quantitative serum b-hCG level is suggested. [employer] has confirmed the use of plasma for this test. This has not been cleared or approved by the U.S. Food and Drug Administration. The FDA has determined that such clearance is not necessary. Performed By: #### H CG, LIP, MG, CDP, CMPX #### [address] [address] Data Entry Representative: Estevan Corcoran MD Lipaseon 01-03-2022 Lipase [Catalytic activity/Vol] 20 U/L Normal 13-60 [facility] Comment on above: Performed By: #### H CG, LIP, MG, CDP, CMPX #### [address] [address] Data Entry Representative: Estevan Corcoran MD Lipase [Catalytic activity/Vol] 20 U/L 13 - 60 U/L [facility] Magnesiumon 01-03-2022 Magnesium [Mass/Vol] 2.1 mg/dL Normal 1.6-2.6 [facility] Comment on above: Performed By: #### H CG, LIP, MG, CDP, CMPX #### [address] [address] Data Entry Representative: Estevan Corcoran MD Magnesium [Mass/Vol] 2.1 mg/dL 1.6 - 2 .6 mg/dL [facility] Microscopic Urinalysison Bacteria, UA MANY Abnormal None [facility] Epithelial Cells UA TOO NUMEROUS TO COUNT [facility] Interpretation and review of laboratory results Abnormal [facility] Other Observations UA Utilizing a urinal ysis as the only screening method to exclude a potential uropathogen can be unreliable in many patient populations. Rapid screening tests are less sensitive than culture and if UTI is a clinical possibility, culture should be considered despite a negative urinalysis. Abnormal NOT REQ. [facility] RBC, UA 2 TO 5 [facility] WBC, UA 2 TO 5 [facility] UA w/Reflex Cultureon 2021 Bilirubin, SemiQt,Ur Negative Normal NEG [facility] Comment on above: Performed By: #### U AX, UMICAO ####[place] [address] Lab Director: Estevan Corcoran MD Blood, Urine LARGE Abnormal NEG [facility] Comment on above: Performed By: #### U AX, UMICAO ####[place] [address] Lab Director: Estevan Corcoran MD Clarity (U) Cloudy Abnormal CLEAR [facility] Comment on above: Result Comment: FOUL ODOR Performed By: #### U AX, UMICAO ####[address] [address] Lab Director: Estevan Corcoran MD Color (U) Yellow Normal YEL [facility] Comment on above: Performed By: #### U AX, UMICAO ####[place] [address] Lab Director: Estevan Corcoran MD Glucose Ql (U) Negative Normal NEG [facility] Comment on above: Performed By: #### U AX, UMICAO ####[place] [address] Lab Director: Estevan Corcoran MD Ketones Ql (U) Negative Normal NEG [facility] Comment on above: Performed By: #### U AX, UMICAO ####[place] [address] Lab Director: Estevan Corcoran MD Leukocyte esterase Test strip Ql (U) Negative Normal NEG [facility] Comment on above: Performed By: #### U AX, UMICAO ####[place] [address] Lab Director: Estevan Corcoran MD Nitrite,Ur Negative Normal NEG [facility] Comment on above: Performed By: #### U AX, UMICAO ####[place] [address] Lab Director: Estevan Corcoran MD PH,Ur 6.0 Normal 5.0-8.0 [facility] Comment on above: Performed By: #### U AX, UMICAO ####[place] [address] Lab Director: Estevan Corcoran MD Protein Ql (U) Negative Normal NEG [facility] Comment on above: Performed By: #### U AX, UMICAO ####[place] [address] Lab Director: Estevan Corcoran MD Spec. [place],Ur 1.108 High 1.005-1.03 0 [facility] Comment on above: Result Comment: POST IV CONTRAST Performed By: #### U AX, UMICAO ####[address] [id number] lab Director: Estevan Corcoran MD Urobilinogen,Ur Normal Normal NORM [facility] Comment on above: Performed By: #### U AX, UMICAO ####[address] [id number] lab Director: Estevan Corcoran MD Urinalysis with Reflex to Cu ltureon 01-03-2022 Bilirubin Urine Negative NEGATIVE [facility] Color, UA Yellow Yellow [facility] Glucose, Ur Negative NEGATIVE [facility] Interpretation and review of laboratory results Abnormal [facility] Ketones Ql (U) Negative NEGATIVE [facility] [place] Leukocyte esterase Test strip Ql (U) Negative NEGATIVE [facility] Nitrite, Urine Negative NEGATIVE [facility] [place] pH, UA 6.0 5 - 8 [facility] Protein, UA Negative NEGATIVE [facility] Specific [place], UA 1.108 High 1.005 - 1.03 [facility] Comment on above: POST IV CONTRAST Turbidity UA Cloudy Abnormal Clear [facility] Comment on above: FOUL ODOR Urine Hgb LARGE Abnormal NEGATIVE [facility] Urobilinogen, Urine Normal Normal [facility] Urinalysis,Microon 2 Bacteria MANY Abnormal NONE [facility] Comment on above: Performed By: #### U AX, UMICAO ####[address] [id number] lab Director: Estevan Corcoran MD Epithelial cells LM Ql (Urine sed) TOO NUMEROUS TO COUNT Normal 0-5 [facility] Comment on above: Performed By: #### U AX, UMICAO ####[address] [address] lab Director: Estevan Corcoran MD Other Observations Utilizing a urinalys is as the only screening method to exclude a potential Abnormal NREQ [facility] Comment on above: Result Comment: urop athogen can be unreliable in many patient populations. Rapid screening tests are less sensitive than culture and if UTI is a clinical possibility, culture should be considered despite a negative urinalysis. Performed By: #### U AX, UMICAO ####[address] [id number] lab Director: Estevan Corcoran MD Urine RBC's 2 TO 5 Normal 0-2 [facility] Comment on above: Performed By: #### U AX, UMICAO ####[address] [address] lab Director: Estevan Corcoran MD Urine WBC's 2 TO 5 Normal 0-5 [facility] Comment on above: Performed By: #### U AX, UMICAO ####[address] [id number] lab Director: Estevan Corcoran MD CT LUMBAR [...] leg pain. Follow-up MRI may be helpful. [facility] RIS CONSOLIDATED EXAMINATION: CT OF THE LUMBAR [...] SOFT TISSUES/RETROPERITONEUM: No paraspinal mass is seen. [facility] RIS CONSOLIDATED Boyd Beatty MD [...] leg pain. Follow-up MRI may be helpful. [employer] Work Phone: Radiology Study observation (narrative) [employer] Work Phone: CT LUMBAR SPINE WO CONTRASTO rdered By: Boyd Beatty on 08-19-2021 [employer] Work Phone: Vital Signs Date Time Vital Sign Value Performing Clinician Facility 10-29-2024 08:55-0400 Body height 165.1 cm Georgi Rusher DPM Work Phone: [facility] 10-29-2024 08:55-0400 Body mass index (BMI) [Ratio] 31.62 kg/m2 Georgi Rusher DPM Work Phone: [facility] 10-29-2024 08:55-0400 Body weight 86.18 kg Georgi Rusher DPM Work Phone: [facility] 09-17-2024 09:57-0400 Body height 165.1 cm Georgi Rusher DPM Work Phone: [facility] 09-17-2024 09:57-0400 Body mass index (BMI) [Ratio] 31.62 kg/m2 Georgi Rusher DPM Work Phone: [facility] 09-17-2024 09:57-0400 Body weight 86.18 kg Georgi Rusher DPM Work Phone: [facility] 09-04-2024 08:26-0400 Body height 165.1 cm Georgi Rusher DPM Work Phone: [facility] 09-04-2024 08:26-0400 Body mass index (BMI) [Ratio] 31.62 kg/m2 Georgi Rusher DPM Work Phone: [facility] 09-04-2024 08:26-0400 Body weight 86.18 kg Georgi Rusher DPM Work Phone: [facility] 08-21-2024 13:09-0400 Body height 165.1 cm Georgi Rusher DPM Work Phone: [facility] 08-21-2024 13:09-0400 Body mass index (BMI) [Ratio] 31.62 kg/m2 Georgi Rusher DPM Work Phone: [facility] 08-21-2024 13:09-0400 Body weight 86.18 kg Georgi Rusher DPM Work Phone: [facility] 07-31-2024 13:47-0400 Body height 165.1 cm [facility] 07-31-2024 13:47-0400 Body mass index (BMI) [Ratio] 31.62 kg/m2 [facility] 07-31-2024 13:47-0400 Body weight 86.18 kg [facility] 07-31-2024 12:55-0400 Body height 165.1 cm Georgi Rusher DPM Work Phone: [facility] 07-31-2024 12:55-0400 Body mass index (BMI) [Ratio] 31.62 kg/m2 Georgi Rusher DPM Work Phone: [facility] 07-31-2024 12:55-0400 Body weight 86.18 kg Georgi Rusher DPM Work Phone: [facility] 07-29-2024 11:17-0400 Body height 167.64 cm [facility] 07-29-2024 11:17-0400 Body mass index (BMI) [Ratio] 32.9 kg/m2 [facility] 07-29-2024 11:17-0400 Body weight 92.53 kg [facility] 07-29-2024 11:17-0400 Diastolic blood pressure 86 mm[Hg] [facility] 07-29-2024 11:17-0400 Heart rate 73 /min [facility] 07-29-2024 11:17-0400 Systolic blood pressure 120 mm[Hg] [facility] 07-22-2024 14:12-0400 Body mass index (BMI) [Ratio] 34.11 kg/m2 Sanjeev Jessica DO Work Phone: [facility] 07-22-2024 14:12-0400 Body weight 92.99 kg Sanjeev Jessica DO Work Phone: [facility] 07-22-2024 14:12-0400 Diastolic blood pressure 82 mm[Hg] Sanjeev Jessica DO Work Phone: [facility] 07-22-2024 14:12-0400 Systolic blood pressure 128 mm[Hg] Sanjeev Jessica DO Work Phone: [facility] 07-16-2024 09:09-0400 Body height 165.1 cm Georgi Rusher DPM Work Phone: [facility] 07-16-2024 09:09-0400 Body mass index (BMI) [Ratio] 31.62 kg/m2 Georgi Rusher DPM Work Phone: [facility] 07-16-2024 09:09-0400 Body weight 86.18 kg Georgi Rusher DPM Work Phone: [facility] 05-17-2024 11:00-0500 Body height 167.64 cm [facility] 05-17-2024 11:00-0500 Body mass index (BMI) [Ratio] 31.1 kg/m2 [facility] 05-17-2024 11:00-0500 Body weight 87.54 kg [facility] 05-17-2024 11:00-0500 Diastolic blood pressure 90 mm[Hg] [facility] 05-17-2024 11:00-0500 Heart rate 124 /min [facility] 05-17-2024 11:00-0500 Systolic blood pressure 124 mm[Hg] [facility] 04-11-2024 09:59-0500 Body height 167.64 cm [facility] 04-11-2024 09:59-0500 Body mass index (BMI) [Ratio] 31.8 kg/m2 [facility] 04-11-2024 09:59-0500 Body weight 89.35 kg [facility] 04-11-2024 09:59-0500 Diastolic blood pressure 94 mm[Hg] [facility] 04-11-2024 09:59-0500 Heart rate 86 /min [facility] 04-11-2024 09:59-0500 Systolic blood pressure 138 mm[Hg] [facility] 02-26-2024 09:54-0500 Body mass index (BMI) [Ratio] 33.12 kg/m2 Sanjeev Jessica DO Work Phone: [facility] 02-26-2024 09:54-0500 Body weight 90.27 kg Sanjeev Jessica DO Work Phone: [facility] 02-26-2024 09:54-0500 Diastolic blood pressure 80 mm[Hg] Sanjeev Jessica DO Work Phone: [facility] 02-26-2024 09:54-0500 Systolic blood pressure 130 mm[Hg] Sanjeev Jessica DO Work Phone: [facility] 01-18-2024 14:03-0400 Body height 165.1 cm [facility] 01-18-2024 14:03-0400 Body mass index (BMI) [Ratio] 31.45 kg/m2 [facility] 01-18-2024 14:03-0400 Body weight 85.73 kg [facility] 01-03-2024 10:48-0400 Body mass index (BMI) [Ratio] 33.75 kg/m2 Sanjeev Jessica DO Work Phone: [facility] 01-03-2024 10:48-0400 Body weight 91.99 kg Sanjeev Jessica DO Work Phone: [facility] 01-03-2024 10:48-0400 Diastolic blood pressure 74 mm[Hg] Sanjeev Jessica DO Work Phone: [facility] 01-03-2024 10:48-0400 Systolic blood pressure 116 mm[Hg] Sanjeev Jessica DO Work Phone: [facility] 12-06-2023 11:46-0400 Body mass index (BMI) [Ratio] 32.78 kg/m2 Sanjeev Jessica DO Work Phone: [facility] 12-06-2023 11:46-0400 Body weight 89.36 kg Sanjeev Jessica DO Work Phone: [facility] 12-06-2023 11:46-0400 Diastolic blood pressure 72 mm[Hg] Sanjeev Jessica DO Work Phone: [facility] 12-06-2023 11:46-0400 Systolic blood pressure 124 mm[Hg] Sanjeev Jessica DO Work Phone: [facility] 11-29-2023 13:37-0400 Body mass index (BMI) [Ratio] 34.28 kg/m2 Sanjeev Jessica DO Work Phone: [facility] 11-29-2023 13:37-0400 Body weight 93.44 kg Sanjeev Jessica DO Work Phone: [facility] 11-29-2023 13:37-0400 Diastolic blood pressure 74 mm[Hg] Sanjeev Jessica DO Work Phone: [facility] 11-29-2023 13:37-0400 Systolic blood pressure 128 mm[Hg] Sanjeev Jessica DO Work Phone: [facility] 06-12-2023 10:05-0400 Body height 165.1 cm Rohit Metzger MD Work Phone: [facility] 06-12-2023 10:05-0400 Body mass index (BMI) [Ratio] 38.94 kg/m2 Rohit Metzger MD Work Phone: [facility] 06-12-2023 10:05-0400 Body weight 106.14 kg Rohit Metzger MD Work Phone: [facility] 05-16-2023 13:48-0500 Body height 165.1 cm Rohit Metzger MD Work Phone: [facility] 05-16-2023 13:48-0500 Body mass index (BMI) [Ratio] 38.94 kg/m2 Rohit Metzger MD Work Phone: [facility] 05-16-2023 13:48-0500 Body weight 106.14 kg Rohit Metzger MD Work Phone: [facility] 05-08-2023 13:10-0500 Body height 165.1 cm Jennie Colon ADJUNCT INSTRUCTOR-AQUACULTURIST Work Phone: [facility] 05-08-2023 13:10-0500 Body mass index (BMI) [Ratio] 38.94 kg/m2 Jennie Colon ADJUNCT INSTRUCTOR-AQUACULTURIST Work Phone: [facility] 05-08-2023 13:10-0500 Body weight 106.14 kg Jennie Colon ADJUNCT INSTRUCTOR-AQUACULTURIST Work Phone: [facility] 05-08-2023 13:10-0500 Diastolic blood pressure 72 mm[Hg] Jennie Colon ADJUNCT INSTRUCTOR-AQUACULTURIST Work Phone: [facility] 05-08-2023 13:10-0500 Heart rate 99 /min Jennie Colon ADJUNCT INSTRUCTOR-AQUACULTURIST Work Phone: [facility] 05-08-2023 13:10-0500 Systolic blood pressure 124 mm[Hg] Jennie Colon ADJUNCT INSTRUCTOR-AQUACULTURIST Work Phone: [facility] 04-14-2023 11:43-0500 Diastolic blood pressure 97 mm[Hg] Kal Martinez ADJUNCT INSTRUCTOR-AQUACULTURIST Work Phone: [facility] Comment on above: . 04-14-2023 11:43-0500 Systolic blood pressure 133 mm[Hg] Kal Jainer ADJUNCT INSTRUCTOR-AQUACULTURIST Work Phone: [employer] Comment on above: . 04-14-2023 11:38-0500 Body mass index (BMI) [Ratio] 39.01 kg/m2 Kal Martinez ADJUNCT INSTRUCTOR-AQUACULTURIST Work Phone: [employer] 04-14-2023 11:38-0500 Body temperature 98.6 [degF] Kal Mratinez ADJUNCT INSTRUCTOR-AQUACULTURIST Work Phone: [employer] 04-14-2023 11:38-0500 Body weight 106.32 kg Kal Martinez ADJUNCT INSTRUCTOR-AQUACULTURIST Work Phone: [employer] 04-14-2023 11:38-0500 Heart rate 92 /min Kal Martinez ADJUNCT INSTRUCTOR-AQUACULTURIST Work Phone: [employer] 04-14-2023 11:38-0500 Respiratory rate 14 /min Kal Martinez ADJUNCT INSTRUCTOR-AQUACULTURIST Work Phone: [employer] 04-14-2023 11:38-0500 SaO2% (BldA) [Mass fraction] 100 % Kal Martinez ADJUNCT INSTRUCTOR-AQUACULTURIST Work Phone: [employer] 01-02-2023 10:00-0400 Body height 162.56 cm Johnathon Winter Other [employer] Other 01-02-2023 10:00-0400 Body mass index (BMI) [Ratio] 42.91 kg/m2 Johnathon Winter Other [employer] Other 01-02-2023 10:00-0400 Body weight 113.4 kg Johnathon Winter Other [employer] Other 01-02-2023 10:00-0400 Diastolic blood pressure 82 mm[Hg] Johnathon Winter Other [employer] Other 01-02-2023 10:00-0400 Systolic blood pressure 126 mm[Hg] Johnathon Winter Other [employer] Other 2022 11:00-0400 Body height 162.56 cm Johnathon Winter Other [employer] Other 2022 11:00-0400 Body mass index (BMI) [Ratio] 44.56 kg/m2 Johnathon Winter Other [employer] Other 2022 11:00-0400 Body weight 117.75 kg Johnathon Winter Other [employer] Other 2022 11:00-0400 Diastolic blood pressure 101 mm[Hg] Johnathon Winter Other [employer] Other 2022 11:00-0400 SaO2% (BldA) [Mass fraction] 100 % Johnathon Winter Other [employer] Other 2022 11:00-0400 Systolic blood pressure 138 mm[Hg] Johnathon Winter Other [employer] Other 10-11-2022 18:45-0400 Body height 165.1 cm Roxie Garcia MD Work Phone: [employer] 10-11-2022 18:45-0400 Body mass index (BMI) [Ratio] 43.93 kg/m2 Roxie Garcia MD Work Phone: [employer] 10-11-2022 18:45-0400 Body temperature 99 [degF] Roxie Garcia MD Work Phone: [employer] 10-11-2022 18:45-0400 Body weight 119.75 kg Roxie Garcia MD Work Phone: [facility] [employer] 10-11-2022 18:45-0400 Diastolic blood pressure 108 mm[Hg] Roxie Garcia MD Work Phone: [facility] 10-11-2022 18:45-0400 Heart rate 87 /min Roxie Garcia MD Work Phone: [facility] [employer] 10-11-2022 18:45-0400 Respiratory rate 16 /min Roxie Garcia MD Work Phone: [facility] [employer] 10-11-2022 18:45-0400 SaO2% (BldA) [Mass fraction] 98 % Roxie Garcia MD Work Phone: [facility] [employer] 10-11-2022 18:45-0400 Systolic blood pressure 160 mm[Hg] Roxie Garcia MD Work Phone: [facility] 01-03-2022 13:54-0400 Diastolic blood pressure 95 mm[Hg] Teo Thomas DO [employer] [facility] [employer] 01-03-2022 13:54-0400 Heart rate 61 /min Teo Thomas DO [employer] [facility] [employer] 01-03-2022 13:54-0400 SaO2% (BldA) [Mass fraction] 100 % Teo Thomas DO [employer] 01-03-2022 13:54-0400 Systolic blood pressure 142 mm[Hg] Teo Froylanfman DO [employer] [facility] [employer] 01-03-2022 11:46-0400 Body height 165.1 cm Teo Agueroan DO [employer] 01-03-2022 11:46-0400 Body mass index (BMI) [Ratio] 44.1 kg/m2 Teo Agueoran DO [employer] [facility] 01-03-2022 11:46-0400 Body temperature 97.7 [degF] Teo Thomas DO [facility] [employer] 01-03-2022 11:46-0400 Body weight 120.2 kg Teo Thomas DO [employer] [facility] [employer] 01-03-2022 11:46-0400 Respiratory rate 16 /min Teo Agueroan DO [facility] 08-19-2021 18:03-0400 Diastolic blood pressure 98 mm[Hg] Radha Sanders MD Work Phone: [facility] 08-19-2021 18:03-0400 Heart rate 92 /min Radha Sanders MD Work Phone: [facility] 08-19-2021 18:03-0400 Respiratory rate 16 /min Radha Sanders MD Work Phone: [facility] 08-19-2021 18:03-0400 SaO2% (BldA) [Mass fraction] 96 % Radha Sanders MD Work Phone: [facility] [employer] 08-19-2021 18:03-0400 Systolic blood pressure 145 mm[Hg] Radha Sanders MD Work Phone: [facility] [employer] 08-19-2021 16:28-0400 Body height 165.1 cm Radha Sanders MD Work Phone: [facility] 08-19-2021 16:28-0400 Body mass index (BMI) [Ratio] 45.76 kg/m2 Radha Sanders MD Work Phone: [facility] [employer] 08-19-2021 16:28-0400 Body temperature 98.6 [degF] Radha Sanders MD Work Phone: [facility] [employer] 08-19-2021 16:28-0400 Body weight 124.74 kg Radha Sanders MD Work Phone: [facility] [employer] Encounters Encounter Date Encounter Type Care Provider Facility Start: 11-05-2024 End: 11-05-2024 Orders Only Burt Meyer APRN-AQUACULTURIST Work Phone: [facility] Start: 10-29-2024 End: 10-29-2024 Bamboo flowsheet Georgi Carreon DPM Work Phone: [facility] Start: 10-29-2024 End: 10-29-2024 Bamboo flowsheet Georgi S Rusher DPM Work Phone: [facility] Start: 10-29-2024 End: 10-29-2024 Postop follow up visit related to original px Georgi S Rusher DPM Work Phone: [facility] Comment on above: S/P foot surgery (Pr imary Dx); Left foot pain Start: 10-29-2024 End: 10-29-2024 ambulatory GEORGI S RUS Not Available Start: 10-21-2024 End: 10-21-2024 [facility] Start: 09-17-2024 End: 09-17-2024 Bamboo flowsheet Georgi S Rusher DPM Work Phone: [facility] Start: 09-17-2024 End: 09-17-2024 Bamboo flowsheet Georgi S Rusher DPM Work Phone: [facility] Start: 09-17-2024 End: 09-17-2024 Postop follow up visit related to original px Georgi S Rusher DPM Work Phone: [facility] Comment on above: S/P foot surgery (Pr imary Dx); Left foot pain Start: 09-17-2024 End: 09-17-2024 ambulatory GEORGI S MARIA DEL ROSARIOHER Not Available Start: 09-04-2024 End: 09-04-2024 Bamboo flowsheet Georgi S Rusher DPM Work Phone: [facility] Start: 09-04-2024 End: 09-04-2024 Bamboo flowsheet Georgi S Rusher DPM Work Phone: [facility] Start: 09-04-2024 End: 09-04-2024 Postop follow up visit related to original px Georgi S Rusher DPM Work Phone: [facility] Comment on above: S/P foot surgery (Pr imary Dx); Left foot pain Start: 09-04-2024 End: 09-04-2024 ambulatory GEORGI CARREON Not Available Start: 09-02-2024 End: 09-02-2024 ambulatory BURT MEYER [facility] Start: 08-21-2024 End: 08-21-2024 Bamboo flowsheet Georgi Carreon DPM Work Phone: [facility] Start: 08-21-2024 End: 08-21-2024 Bamboo flowsheet Georgi Carreon DPM Work Phone: [facility] Start: 08-21-2024 End: 08-21-2024 Postop follow up visit related to original px Georgi Carreon DPM Work Phone: [facility] Comment on above: S/P foot surgery (Pr imary Dx); Left foot pain; Difficulty walking; Instability of left ankle joint Start: 08-21-2024 End: 08-21-2024 ambulatory GEORGI CARREON Not Available Start: 08-08-2024 End: 08-08-2024 Evaluation and management of inpatient GEORGI CARREON [facility] Start: 08-06-2024 End: 08-06-2024 ambulatory [facility] Start: 08-05-2024 End: 08-05-2024 ambulatory [facility] Start: 08-05-2024 End: 08-05-2024 Encounter for preprocedural cardiovascular examination [facility] Start: 07-31-2024 End: 07-31-2024 Patient encounter procedure [facility] Pre-Admission Testing 2 [facility] - Pre Admit Comment on above: Preop examination (P rimary Dx); Hypertension, unspecified type Start: 07-31-2024 End: 07-31-2024 Preprocedural examination done Pm 2 [facility] [employer] [facility] Start: 07-31-2024 End: 07-31-2024 [employer] Georgi Carreon DPM Work Phone: [facility] Start: 07-31-2024 End: 07-31-2024 Bamboo flowsheet Georgi Carreon DPM Work Phone: [facility] Start: 07-31-2024 Encounter for other preprocedural examination JUDI ORTEGA [facility] Start: 07-31-2024 End: 07-31-2024 Office outpatient visit 25 minutes Georgi Carreon DPM Work Phone: [facility] Comment on above: Hallux valgus of lef t foot (Primary Dx); Instability of left foot joint; Tailor's bunion of left foot; Acquired deformity of left toe; 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; Equinus contracture of left ankle Start: 07-31-2024 End: 07-31-2024 ambulatory GEORGI S [facility] Start: 07-31-2024 End: 07-31-2024 ambulatory MONSERRAT Aquino JUSTIN [facility] Start: 07-29-2024 End: 07-29-2024 ambulatory [facility] Work Phone: Start: 07-29-2024 End: 07-29-2024 Patient encounter procedure [facility] Physician [facility] Work Phone: Start: 07-22-2024 End: 07-22-2024 Patient encounter procedure Sanjeev Jessica DO Work Phone: [facility] Work Phone: Start: 07-22-2024 End: 07-22-2024 Periodic preventive med est patient 40-64yrs Sanjeev Jessica DO Work Phone: [facility] Comment on above: Well woman exam with routine gynecological exam; Breast cancer screening by mammogram Start: 07-22-2024 Non-patient / Non-visit [facility] Work Phone: Start: 07-22-2024 End: 07-22-2024 Bamboo flowsheet Sanjeev Jessica DO Work Phone: [facility] Start: 07-22-2024 End: 07-25-2024 Bamboo flowsheet Sanjeev Jessica DO Work Phone: [facility] Start: 07-22-2024 End: 07-25-2024 Clinisync Result Encounter Sanjeev Jessica DO Work Phone: [facility] External Department Unsolicited Start: 07-22-2024 End: 07-22-2024 ambulatory SANJEEV JESSICA Not Available Start: 07-17-2024 End: 07-17-2024 ambulatory GEORGI CARREON [facility] Start: 07-17-2024 End: 07-17-2024 ambulatory JUDI ORTEGA [facility] Start: 07-16-2024 End: 07-16-2024 Bamboo flowsheet Georgi Carreon DPM Work Phone: [facility] Start: 07-16-2024 End: 07-16-2024 Bamboo flowsheet Georgi Carreon DPM Work Phone: [facility] Start: 07-16-2024 End: 07-16-2024 Office outpatient visit 25 minutes Georgi Carreon DPM Work Phone: [facility] Comment on above: Hallux valgus of lef t foot (Primary Dx); Instability of left foot joint; Tailor's bunion of left foot; Acquired deformity of left toe; 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; Equinus contracture of left ankle; Left foot pain; Vitamin D insufficiency Start: 07-16-2024 End: 07-16-2024 ambulatory GEORGI CARREON Not Available Start: 07-08-2024 Non-patient / Non-visit [facility] Work Phone: Start: 07-03-2024 End: 07-03-2024 ambulatory [facility] Start: 06-28-2024 Emergency department patient visit Johnathon Winter Facility:[facility] Start: 05-29-2024 End: 05-29-2024 ambulatory [facility] Start: 05-17-2024 End: 05-17-2024 ambulatory [facility] Work Phone: Start: 05-17-2024 End: 05-17-2024 Patient encounter procedure [facility] Work Phone: Start: 05-08-2024 End: 05-08-2024 ambulatory [facility] Start: 04-15-2024 Non-patient / Non-visit [facility] Work Phone: Start: 04-11-2024 Patient encounter status [facility] Start: 04-11-2024 End: 04-11-2024 ambulatory [facility] Work Phone: Start: 04-11-2024 End: 04-11-2024 Encounter for general adult medical examination without abnormal findings [facility] Start: 04-11-2024 End: 04-11-2024 Patient encounter procedure [facility] Work Phone: Start: 04-08-2024 End: 04-08-2024 ambulatory [facility] Start: 04-01-2024 End: 04-01-2024 Clinisync Result Encounter Sanjeev Jessica DO Work Phone: [facility] External Department Unsolicited Start: 04-01-2024 End: 04-01-2024 Clinisync Result Encounter Sanjeev Jessica DO Work Phone: [facility] External Department Unsolicited Start: 04-01-2024 Non-patient / Non-visit [facility] Work Phone: Start: 03-22-2024 End: 03-22-2024 Documentation procedure Caitlyn Carter [email or web address] - Medical Oncology Start: 02-26-2024 End: 02-26-2024 [...] Not Available Start: 01-30-2024 Non-patient / Non-visit [facility] Work Phone: Start: 01-26-2024 End: 01-26-2024 Orders Only Alfonso Liang MD Work Phone: [facility] Sign In Start: 01-26-2024 End: 01-26-2024 [facility] Start: 01-25-2024 End: 01-26-[address] [facility] Start: 01-19-2024 Non-patient / Non-visit [facility] Work Phone: Start: 01-18-2024 End: 01-18-2024 Admission to [facility] Phone Call Provider 3 [facility] Start: 01-18-2024 End: 01-18-2024 Evaluation and management of inpatient JOHNATHON Jay WINTER [facility] Start: 01-14-2024 Non-patient / Non-visit [facility] Phys[facility] Work Phone: Start: 01-14-2024 End: 01-14-2024 Emergency department patient visit [facility] Facility:[facility] Start: 01-03-2024 End: 01-03-2024 Bamboo flowsheet Sanjeev [...] Not Available Start: 01-03-2024 End: 01-03-2024 ambulatory [facility] Start: 12-28-2023 End: 12-29-2023 Clinisync Result Encounter [...] Departed Referred DO Sanjeev Jessica Work Phone: [facility] [place] Work Phone: Start: 12-06-2023 End: 12-06-2023 Patient encounter procedure Sanjeev Jessica DO Work Phone: [facility] Comment on above: Pre-op examination; Menorrhagia with regular cycle; Abnormal uterine bleeding (AUB); Pelvic pain; Hormone disorder Start: 12-06-2023 End: 12-06-2023 Preprocedural examination done Sanjeev Jessica DO Work Phone: [facility] Start: 12-06-2023 End: 12-06-2023 ambulatory Sanjeevbenji Suggso [facility] Work Phone: Start: 11-29-2023 Non-patient / Non-visit DO Cor ey Jessica Work Phone: [facility] Physician [facility] Work Phone: Start: 11-29-2023 End: [...] Not Available Start: 11-22-2023 End: 11-22-2023 ambulatory [facility] Start: 11-20-2023 End: 11-20-2023 ambulatory Christiano Rivera MD Facility:[facility] Start: 11-13-2023 End: 11-13-2023 ambulatory Christiano Rivera MD Facility:[facility] Start: 10-25-2023 Non-patient / Non-visit DO Cor ey Jessica Work Phone: [facility] Work Phone: Start: 08-23-2023 End: 08-23-2023 ambulatory Johnathon Winter Facility:[facility] Start: 07-31-2023 End: 07-31-2023 ambulatory Bhavin Montgomery MD Facility:[facility] Start: 07-17-2023 End: 07-17-2023 ambulatory Bhavin Montgomery MD Facility:[facility] Start: 06-26-2023 End: 06-26-2023 ambulatory Bhavin Montgomery MD Facility:[facility] Start: 06-12-2023 End: 06-12-2023 ambulatory [facility] Comment on above: Lumbar radiculopathy , chronic (Primary Dx); Herniated lumbar intervertebral disc Start: 06-12-2023 End: 06-12-2023 Office outpatient visit 10 minutes Rohit Smith MD Work Phone: [facility] Comment on above: 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) Start: 05-24-2023 Orders Only Jennie barlow ADJUNCT INSTRUCTOR-AQUACULTURIST Work Phone: [facility] Comment on above: Herniated lumbar int ervertebral disc (Primary Dx); Lumbar radiculopathy, chronic Start: 05-23-2023 End: 05-23-2023 ambulatory Tee Peterson [facility] Work Phone: Start: 05-23-2023 End: 05-23-2023 Departed [facility] MD Tee Peterson Work Phone: [facility] Start: 05-16-2023 End: 05-16-2023 ambulatory [facility] Start: 05-16-2023 End: 05-16-2023 Office outpatient new 30 minutes Rohit Smith MD Work Phone: [facility] Comment on above: 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); Finger injury, right, initial encounter Start: 05-15-2023 Orders Only Jennie Mille r ADJUNCT INSTRUCTOR-AQUACULTURIST [facility] Phone: [facility] Comment on above: Herniated lumbar int ervertebral disc (Primary Dx) Start: 05-10-2023 End: 05-10-2023 ambulatory Johnathon Winter Other [facility] Other Start: 05-10-2023 Encounter by kriss [facility] Start: 05-10-2023 Non-patient / Non-visit MD Jones Work Phone: [facility] Work Phone: Start: 05-08-2023 End: 05-08-2023 Office outpatient new 45 minutes Jennie Colon ADJUNCT INSTRUCTOR-AQUACULTURIST Work Phone: [facility] Comment on above: Lumbar radiculopathy , chronic (Primary Dx); Urinary incontinence without sensory awareness; Sensory deficit, left; Spinal stenosis of lumbar region with neurogenic claudication Start: 05-04-2023 End: 05-04-2023 Office outpatient visit 10 minutes Everett Okeefe NP Work Phone: [facility] Comment on above: 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); Pain in finger of right hand Start: 04-19-2023 End: 04-19-2023 ambulatory Scottie Lyn Other [facility] Other Start: 04-19-2023 Telephone encounter Scottie Lyn [facility] Start: 04-14-2023 End: 04-14-2023 ambulatory JOHNATHON WINTER [facility] Comment on above: Back pain, unspecifi ed back location, unspecified back pain laterality, unspecified chronicity (Primary Dx) Start: 04-14-2023 End: 04-14-2023 Office outpatient visit 15 minutes Kal Martinez ADJUNCT INSTRUCTOR-AQUACULTURIST Work Phone: [facility] [place] Comment on above: Acute left-sided low back pain with left-sided sciatica (Primary Dx) Start: 04-12-2023 End: 04-12-2023 ambulatory Johnathon Winter Other [employer] Other Start: 04-12-2023 Telephone encounter Johnathon [facility] Start: 04-11-2023 End: 04-11-2023 ambulatory Johnathon Winter Other [employer] Other Start: 04-11-2023 Telephone encounter Johnathon [facility] Start: 04-10-2023 End: 04-10-2023 ambulatory Johnathon Winter Other [employer] Other Start: 04-10-2023 Encounter by kriss burgos Johnathon [facility] Start: 01-30-2023 End: 01-30-2023 ambulatory Johnathon Winter Other [employer] Other Start: 01-30-2023 Telephone encounter Johnathon [facility] Start: 01-02-2023 End: 01-02-2023 ambulatory Johnathon Winter Other [employer] Other Start: 01-02-2023 Office outpatient vi sit 15 minutes Johnathon [facility] Start: 12-09-2022 End: 12-09-2022 ambulatory Johnathon Winter Other [employer] Other Start: 12-09-2022 Telephone encounter Johnathon [facility] Start: 12-08-2022 End: 12-08-2022 ambulatory Johnathon Winter Other [employer] Other Start: 12-08-2022 Telephone encounter Johnathon [facility] Start: 2022 End: 2022 ambulatory Johnathon Winter Other [employer] Other Start: 2022 Office outpatient ne w 30 minutes Johnathon [facility] Start: 10-11-2022 End: 10-11-2022 Emergency department patient visit JOHNATHON WINTER [facility] Start: 10-11-2022 End: 10-11-2022 Emergency department patient visit Roxie Garcia MD Work Phone: [facility] Emergency Department Comment on above: Sprain of right ankl e, unspecified ligament, initial encounter (Primary Dx) Start: 07-11-2022 End: 07-11-[address] SANJEEV LOPEZ . Facility:[facility] Start: 04-29-2022 End: 04-30-[address] SANJEEV LOPEZ . Facility: Start: 02-16-2022 End: 02-16-2022 Emergency department patient visit JOHNATHON WINTER [facility] Start: 01-03-2022 End: 01-03-2022 Emergency department patient visit JOHNATHON [facility] Start: 01-03-2022 End: 01-03-2022 Emergency department patient visit Teo Thomas DO [facility] Comment on above: Gastroenteritis (Neetu emil Dx) Start: 08-19-2021 End: 08-19-2021 Emergency department patient visit Radha Sanders MD Work Phone: [facility] Comment on above: Herniated lumbar int ervertebral disc (Primary Dx) Procedures Date Procedure Procedure Detail Performing Clinician Start: 10-29-2024 Radex foot complete minimum 3 views Georgi Carreon DPM Work Phone: Start: 09-17-2024 Radex foot complete minimum 3 views Georgi Carreon DPM Work Phone: Start: 08-21-2024 Radex foot complete minimum 3 views Georgi Carreon DPM Work Phone: Start: 07-22-2024 End: 07-22-2024 Urnls dip stick/tablet rgnt non-auto w/o micrscp Sanjeev Jessica DO Work Phone: Start: 07-22-2024 IGP,APTIMA HPV,AGE GDLN Sanjeev Jessica DO Work Phone: Start: 07-22-2024 Microscopic observat ion [Identifier] in Cervix by Cyto stain Burt Meyer ADJUNCT INSTRUCTOR-AQUACULTURIST Work Phone: Start: 07-16-2024 Radex foot complete minimum 3 views Georgi S Velma DPM Work Phone: Start: 04-01-2024 MLR HEMOGLOBIN A1C Core y [...] Phone: Start: 06-12-2023 Follow-up visit Follow-up ROHIT SHARIF UGHTNHAN V Start: 10-11-2022 Radex ankle complete minimum 3 views Bailee Lew ADJUNCT INSTRUCTOR - AQUACULTURIST Work Phone: Start: 01-03-2022 Urinalysis microscopic only Zachariah Foster ADJUNCT INSTRUCTOR - WAGON WASHER Work Phone: Start: 01-03-2022 Urnls dip stick/tabl et rgnt auto w/o microscopy Zachariah Foster ADJUNCT INSTRUCTOR - WAGON WASHER Work Phone: Start: 01-03-2022 Ct abdomen & pelvis w/contrast material Zachariah Foster ADJUNCT INSTRUCTOR - WAGON WASHER Work Phone: Start: 01-03-2022 Assay of lipase Zachariah Foster ADJUNCT INSTRUCTOR - WAGON WASHER Work Phone: Start: 12-01-2021 Adult depression scr eening assessment Serina ALVARADO Start: 08-19-2021 Ct lumbar spine w/o contrast material Radha Sadners MD Work Phone: Plan of Treatment Date Care Activity Detail Author Start: 07-23-2027 Screening for malignant neoplasm of cervix Pap Smear [facility] Start: 10-21-2025 Tobacco Screening Tobacco Screening [facility] Start: 08-08-2025 Adult BMI Screening Adult BMI Screening [facility] Start: 07-31-2025 Adult BMI Screening Adult BMI Screening [facility] Start: 07-31-2025 Tobacco Screening Tobacco Screening [facility] Start: 07-29-2025 End: 07-29-2025 [facility] Start: 01-29-2025 End: 01-29-2025 Patient encounter procedure 01/29/2025 9:00 AM EDT Office Visit [facility] [address] [place] [phone] Georgi Carreon, DPM [address] [place] [address] [facility] Start: 01-25-2025 Adult BMI Screening Adult BMI Screening [facility] Start: 01-25-2025 Tobacco Screening Tobacco Screening [facility] Start: 01-17-2025 Adult BMI Screening Adult BMI Screening [facility] Start: 01-02-2025 Tobacco Screening Tobacco Screening [facility] Start: 12-02-2024 Influenza vaccination Influenza Vaccine [facility] Start: 10-29-2024 End: 10-29-2024 [facility] Comment on above: Arrived Start: 09-18-2024 End: 09-18-2024 Patient encounter procedure 09/18/2024 1:15 PM EDT Office Visit [facility] [address] [place] [phone] Georgi Carreon DPM [address] [place], [place] [phone] [facility] Start: 09-17-2024 End: 09-17-2024 Patient encounter procedure 09/17/2024 9:45 AM EDT Office Visit [facility] [address] [place] [phone] Georgi Carreon DPM [address] [place], [place] [phone] Arrived [facility] Comment on above: Arrived Start: 09-04-2024 End: 09-04-2024 Patient encounter procedure [facility] Comment on above: Arrived Start: 08-21-2024 End: 08-21-2024 Patient encounter procedure [facility] Comment on above: Arrived Start: 08-08-2024 End: 08-08-2024 Admission to same day surgery center 08/08/2024 7:30 AM EDT - 08/08/2024 10:30 AM EDT Surgery [facility] - [facility] [address] [place] [phone] Georgi Carreon DPM [address] [place] [address] FUSION LAPIDUS & CPT 05664 [58098 (CPT )] [facility] Comment on above: FUSION LAPIDUS & CPT 15619 [95639 (CPT ) ] Start: 08-08-2024 End: 08-08-2024 Corrj hallux valgus w/sesmdc w/1metar medial cnf FUSION [employer] left foot hallux valgus, deformity of 2nd & 5th metatarsal, acquired deformity of toe, equinus contracture, 5th metatarsal tailors bunion 08/08/2024 7:30 AM EDT [facility] Start: 08-08-2024 End: 08-08-2024 Gastrocnemius recession REPAIR MUSCLE RECESSION GASTROCNEMIUS left foot hallux valgus, deformity of 2nd & 5th metatarsal, acquired deformity of toe, equinus contracture, 5th metatarsal tailors bunion 08/08/2024 7:30 AM EDT [facility] Start: 08-08-2024 End: 08-08-2024 Osteot w/wo lngth shrt/corrj metar xcp 1st ea OSTEOTOMY JENNIFER METATARSAL left foot hallux valgus, deformity of 2nd & 5th metatarsal, acquired deformity of toe, equinus contracture, 5th metatarsal tailors bunion 08/08/2024 7:30 AM EDT [facility] Start: 08-08-2024 End: 08-08-2024 Rcnstj angular dfrm toe soft tiss px only EXCISION SOFT TISSUE FOOT left foot hallux valgus, deformity of 2nd & 5th metatarsal, acquired deformity of toe, equinus contracture, 5th metatarsal tailors bunion 08/08/2024 7:30 AM EDT [facility] Start: 08-08-2024 Subsequent hospital visit by physician 08/08/2024 7:30 AM EDT Hospital Encounter [facility] [address] [place] [phone] Georgi Carreon, DPM [address] [place], [place] [phone] [facility] Start: 07-31-2024 End: 07-31-2024 Patient encounter procedure [facility] Comment on above: Arrived Start: 07-22-2024 End: 07-22-2024 Patient encounter procedure [facility] Comment on above: Arrived Start: 07-22-2024 End: 09-21-2025 MG Breast - bilateral Screening Bilateral screening mammogram Imaging Routine Breast cancer screening by mammogram Expected: 07/22/2024 (Approximate), Expires: 09/21/2025 [facility] Comment on above: Expected: 07/22/2024 (Approximate), Expi res: 09/21/2025 Start: 07-16-2024 End: 07-16-2024 Patient encounter procedure 07/16/2024 9:00 AM EDT Office Visit [facility] [address] [place] [phone] Georgi Carreon, DPM [address] [place], [place] [phone] Arrived [facility] Comment on above: Arrived Start: 06-11-2024 Adult BMI Screening Adult BMI Screening [facility] Start: 06-11-2024 Tobacco Screening Tobacco Screening [facility] Start: 05-16-2024 Adult BMI Screening Adult BMI Screening [facility] Start: 05-16-2024 Tobacco Screening Tobacco Screening [facility] Start: 05-08-2024 Adult BMI Screening Adult BMI Screening [facility] Start: 05-08-2024 Tobacco Screening Tobacco Screening [facility] Start: 04-14-2024 Adult BMI Screening Adult BMI Screening [facility] Start: 04-14-2024 Tobacco Screening Tobacco Screening [facility] Start: 02-26-2024 End: 04-27-2025 MG Breast - bilateral Diagnostic Bilateral diagnostic mammogram Imaging Routine Breast pain Expected: 02/26/2024 (Approximate), Expires: 04/27/2025 [facility] Work Phone: Comment on above: Expected: 02/26/2024 (Approximate), Expi res: 04/27/2025 Start: 02-26-2024 End: 02-26-2024 Patient encounter procedure 02/26/2024 10:00 AM EST Office Visit [facility] [address] [place] [address] Sanjeev Lopez, [address] [place] [address] Arrived [facility] Comment on above: Arrived Start: 01-25-2024 End: 01-25-2024 Admission to same day surgery center 01/25/2024 10:00 AM EDT - 01/25/2024 1:59 PM EDT Surgery [facility] - Surgery [address] [place] [address] [facility], [address], [address] [place] [address] PANNICULECTOMY [facility] - Surgery Comment on above: PANNICULECTOMY Start: 01-25-2024 End: 01-25-2024 PANNICULECTOMY PANNICULECTOMY Panniculitis affecting regions of neck and back, site unspecified 01/25/2024 10:00 AM EDT [facility] Start: 01-25-2024 Subsequent hospital visit by physician 01/25/2024 10:00 AM EDT Hospital Encounter [facility] Surgery [address] [place] [address], [address] [place] [address] [facility] Start: 01-03-2024 End: 01-03-2024 Patient encounter procedure [facility] Comment on above: Arrived Start: 12-22-2023 End: 12-22-2023 Patient encounter procedure 12/22/2023 10:00 AM EDT Procedure Visit [facility] Sanjeev Lopez, [address] [place] [address] [facility] Start: 12-06-2023 End: 12-05-2024 [...] EDT Procedure Visit [facility] [address] [place] [phone] Sanjeve Lopez, [facility] [place] [address] [facility] Start: 12-03-2023 Influenza vaccination Influenza Vaccine [facility] Start: 11-29-2023 End: 11-28-2024 DHEA-sulfate DHEA-sulfate Lab Routine Decreased libido Expected: 11/29/2023 (Approximate), Expires: 11/28/2024 [facility] Comment on above: Expected: 11/29/2023 (Approximate), Expi res: 11/28/2024 Start: 11-29-2023 End: 11-29-2023 Patient encounter procedure 11/29/2023 1:50 PM EDT Office Visit [facility] [address] [place] [phone] Sanjeev Lopez, [address] [place] [address] Arrived [facility] Comment on above: Arrived Start: 07-19-2023 End: 07-19-2023 Patient encounter procedure 07/19/2023 1:45 PM EDT Office Visit [facility] [address] [facility] [address] [place] [address] Vishal Martin DO [address] [facility] [address] [place] [address] [facility] Start: 07-17-2023 End: 07-17-2023 Patient encounter procedure 07/17/2023 10:00 AM EDT Office Visit [facility] [address] [place] [phone] Sanjeev Lopez, [address] [place] [address] [facility] Start: 06-12-2023 End: 06-12-2023 Patient encounter procedure 06/12/2023 10:05 AM EDT Office Visit [facility] [address] [place] [phone] Rohit Smith MD [address] [place] [address] [facility] Start: 05-19-2023 End: 05-19-2023 Patient encounter procedure 05/19/2023 10:15 AM EST Appointment [facility] [address] [place] [phone] [facility] Start: 05-16-2023 End: 05-16-2023 Patient encounter procedure 05/16/2023 1:45 PM EST Office Visit [facility] [address] [facility] [address] [place] [address] Rohit Smith MD [address] [place] [address] [facility] Start: 05-08-2023 End: 05-08-2024 MR Lumbar spine WO contrast MR lumbar spine without contrast Imaging Routine Lumbar radiculopathy, chronic Urinary incontinence without sensory awareness Sensory deficit, left Spinal stenosis of lumbar region with neurogenic claudication Expected: 05/08/2023, Expires: 05/08/2024 [facility] Work Phone: Comment on above: Expected: 05/08/2023, Expires: Start: 05-08-2023 End: 05-08-2023 Patient encounter procedure 05/08/2023 1:30 PM EST Office Visit [facility] [address] [place] [address] 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 [address] [place] [phone] [facility] Start: 04-14-2023 End: 04-14-2024 XR Lumbar spine Views W flexion and W extension X-ray spine lumbar ap, lateral, flexion and extension only Imaging Routine Back pain, unspecified back location, unspecified back pain laterality, unspecified chronicity Expected: 04/14/2023, Expires: 04/14/2024 [facility] Work Phone: Comment on above: Expected: 04/14/2023, Expires: Start: 12-02-2022 Influenza vaccination Influenza Vaccine [facility] Start: 12-01-2022 Depression Screening Depression Screening [facility] Start: 11-01-2022 Influenza vaccination Flu vaccine (#1) [facility] Start: 09-03-2022 Adult BMI Follow Up Plan Adult BMI Follow Up Plan [facility] Start: 12-02-2021 Influenza vaccination Flu vaccine (Season Ended) [facility] Start: 11-01-2021 Influenza vaccination Flu vaccine (#1) [facility] Start: 2017 Diabetes screen Diabetes screen [facility] Start: 2012 Screening for malignant neoplasm of cervix [facility] Start: 12-01-2003 Screening for malignant neoplasm of cervix Pap smear [facility] Start: 2001 DTaP,Tdap and Td Vaccines (1 - Tdap) DTaP,Tdap and Td Vaccines (1 - Tdap) [facility] Start: 2001 DTaP/Tdap/Td vaccine (1 - Tdap) DTaP/Tdap/Td vaccine (1 - Tdap) [facility] Start: 2000 Adult BMI Follow Up Plan Adult BMI Follow Up Plan [facility] Start: 2000 Hepatitis C screening Hepatitis C screen [facility] Start: 1994 Depression Screen Depression Screen [facility] Start: 12-01-1987 COVID-19 Vaccine (1) COVID-19 Vaccine (1) [facility] Start: 12-01-1983 Varicella vaccine (1 of 2 - 2-dose childhood series) Varicella vaccine (1 of 2 - 2-dose childhood series) [facility] Start: 06-01-1983 COVID-19 Vaccine (#1) COVID-19 Vaccine (#1) GIANA PEREZ [facility] Endometrial biopsy Endometrial b iopsy Procedures Routine Menorrhagia with regular cycle Abnormal uterine bleeding (AUB) Pelvic pain Ordered: 12/06/2023 [facility] Work Phone: Comment on above: Ordered: 12/06/2023 Estradiol Estradiol Lab Ro utine Hormone disorder Ordered: 12/06/2023 [facility] Comment on above: Ordered: 12/06/2023 Estrone Estrone Lab Rout ine Hormone disorder Ordered: 12/06/2023 [facility] Comment on above: Ordered: 12/06/2023 Ferritin [Mass/volum e] in Serum or Plasma Ferritin Lab Routine Hormone disorder Ordered: 12/06/2023 [facility] Comment on above: Ordered: 12/06/2023 Hemoglobin A1c/Hemoglobin.total in Blood Hemoglobin A1c Lab Routine Hormone disorder Ordered: 12/06/2023 [facility] Comment on above: Ordered: 12/06/2023 Progesterone Progesterone Lab Routine Hormone disorder Ordered: 12/06/2023 [facility] Comment on above: Ordered: 12/06/2023 Sex hormone binding globulin Sex hormone binding globulin Lab Routine Decreased libido Ordered: 11/29/2023 [facility] Comment on above: Ordered: 11/29/2023 T3, reverse T3, reverse Lab Routine Hormone disorder Ordered: 12/06/2023 [facility] Comment on above: Ordered: 12/06/2023 TESTOSTERONE, FREE TESTOSTERONE, FREE Lab Routine Decreased libido Ordered: 11/29/2023 [facility] Work Phone: Comment on above: Ordered: 11/29/2023 Testosterone, free, total Testos terone, free, total Lab Routine Decreased libido Ordered: 11/29/2023 [facility] Comment on above: Ordered: 11/29/2023 Testosterone, free, total Testos terone, free, total Lab Routine Hormone disorder Ordered: 12/06/2023 [facility] Comment on above: Ordered: 12/06/2023 THIN PREP TIS PAP AN D HR HPV DNA THIN PREP TIS PAP AND HR HPV DNA Pathology and Cytology Routine Well woman exam with routine gynecological exam Ordered: 07/22/2024 [facility] Work Phone: Comment on above: Ordered: 07/22/2024 Thyroid peroxidase antibody Thyroid peroxidase antibody Lab Routine Hormone disorder Ordered: 12/06/2023 [facility] Comment on above: Ordered: 12/06/2023 Thyroxine (T4) free [Mass/volume] in Serum or Plasma T4, free Lab Routine Hormone disorder Ordered: 12/06/2023 [facility] Comment on above: Ordered: 12/06/2023 Triiodothyronine (T3 ) Free [Mass/volume] in Serum or Plasma T3, free Lab Routine Hormone disorder Ordered: 12/06/2023 [facility] Comment on above: Ordered: 12/06/2023 Vitamin D 1,25 dihydroxy Vitamin D 1,25 dihydroxy Lab Routine Hormone disorder Ordered: 12/06/2023 [facility] Comment on above: Ordered: 12/06/2023 Vitamin D 1,25 dihydroxy Vitamin D 1,25 dihydroxy Lab Routine Vitamin D insufficiency Ordered: 07/16/2024 [facility] Work Phone: Comment on above: Ordered: 07/16/[address] [facility] Payers Date Payer Category Payer Unknown [id number] 2023 Self-pay 2022 [employer] Blue [employer] 1.2.8 [id number] 2022 [employer] Managed [employer] - PPO [id number]. [id number] 2022 Unknown [id number]. 1.13.693.2.7.3.6786 71.315 2022 Unknown [id number] 2020 Unknown [id number] 1.2.840.266796.1.13.239.2.7.3.6786 71.315 1982 Unknown [id number] 2.16.840.1.041639.3.579.2.593 1982 Unknown [id number] 2.840.1.066157.3.579.2.593 1982 Unknown [id number] 2.840.1.202016.3.579.2.175 1982 Unknown [id number] 2.840.1.164764.3.579.2.175 1982 Unknown [id number] 2.840.1.151127.3.579.2.175 1982 Unknown [id number] 2.0.1.304486.3.579.2.1285 1982 Unknown [id number] 2.0.1.245498.3.579.2.1285 1982 Unknown [id number] 2.1.196103.3.579.2.1285 1982 Unknown [id number] 20.1.627163.3.579.2. 1982 Unknown [id number] .1.917942.3.579.2. 1982 Unknown [id number] 20.1.848048.3.579.2. 1982 Unknown [id number] 05.19.830.1.680423.3.579.2. 1982 Unknown [id number] 840.1.774584.3.579.2. 1982 Unknown [id number] 20.1.048622.3.579.2.1285 1982 Unknown [id number] 840.1.889629.3.579.2.1285 1982 Unknown [id number] 2840.1.844354.3.579.2.1285 1982 Unknown [id number] 05.19.830.1.448339.3.579.2.1285 1982 Unknown [id number] 20.1.771240.3.579.2. 1982 Unknown [id number] 2840.1.315134.3.579.2. 1982 Unknown [id number] 05.19.830.1.198811.3.579.2. 1982 Unknown [id number] 05.19.830.1.167567.3.579.2.1285 1982 Unknown [id number] .1.249202.3.579.2.1285 1982 Unknown [id number] .1.113361.3.579.2.1285 1982 Unknown [id number] .1.717268.3.579.2.1285 1982 Unknown [id number] .1.257247.3.579.2.1285 1982 Unknown [id number] .1.200498.3.579.2.1285 1982 Unknown [id number] .1.278842.3.579.2.1285 1982 Unknown [id number] .1.521768.3.579.2.1285 1982 Unknown [id number] .1.981919.3.579.2.1285 1982 Unknown [id number] .1.735211.3.579.2.1285 1982 Unknown [id number] .1.450930.3.579.2.1285 1982 Unknown [id number] .1.914787.3.579.2.1285 1982 Unknown [id number] 2.0.1.036945.3.579.2.128 1982 Unknown [id number] 2.0.1.372114.3.579.2.1258 1982 Unknown [id number] 2.840.1.968530.3.579.2.1258 1982 Unknown [id number] 2..1.371327.3.579.2.1258 1982 Unknown [id number] 2.1.353453.3.579.2.1258 1982 Unknown [id number] .1.576385.3.579.2.1258 1982 Unknown [id number] 2.1.902795.3.579.2.1258 1982 Unknown [id number] .1.417236.3.579.2.1258 1982 Unknown [id number] .1.225224.3.579.2.1258 1982 Unknown [id number] .1.923781.3.579.2.1258 1982 Unknown [id number] .1.670545.3.579.2.1258 1982 Unknown [id number] .1.826688.3.579.2.1258 1982 Unknown [id number] .1.109368.3.579.2.1258 1982 Unknown [id number] .1.235647.3.579.2.1258 1982 Unknown [id number] 840.1.681532.3.579.2.1258 1982 Unknown [id number] 840.1.434042.3.579.2.1258 1959 Unknown [id number] Unknown [id number] 2.16.840.1.208287.3.579.2.531 Social History Date Type Detail Facility Start: 06-15-2015 End: 03-31-2022 Tobacco smoking status NJIS Never smoked tobacco [employer] Start: 06-15-2015 End: 03-31-2022 Tobacco use and exposure Smokeless tobacco non-user [employer] Phone: Start: 08-19-2021 End: 10-21-2024 Alcohol intake Current non-drinker of alcohol (finding) [employer] [employer] Phone: Start: 05-14-2020 End: 08-19-2021 Alcohol intake [employer] [employer] Phone: Start: 06-15-2015 History SDOH Alcohol Comment rarely [employer] [employer] Phone: Start: 1980 Sex Assigned At Not on file [facility] [employer] Phone: Start: 08-09-2021 End: 01-03-2022 Exposure to SARS-CoV-2 (event) Not sure [employer] Phone: History of tobacco use Passive smoker [facility] Phone: Start: 05-14-2020 End: 05-04-2023 Sex Assigned At [employer] [facility] Start: 05-04-2023 End: 10-29-2024 Alcohol intake Ex-drinker (finding) [facility] Start: 10-09-2022 Alcohol Comment Alcohol: 1 or 2 drinks on typical day/monthly or less. Caffeine: 1-2 cups/day tea [facility] Start: 1980 Sex Assigned At Female [facility] Start: 09-21-2022 Gender identity Identifies as female gender (finding) [facility] Start: 09-21-2022 Sexual orientation Heterosexual (fin ding) [facility] Has the electric, gas, oil, or water company threatened to shut off services in your home in past 12Mo No [facility] Adolescent depressio n screening assessment 0 [facility] Start: 11-06-2014 End: 07-29-2024 Sex Female (finding) [facility] Tobacco smoking status NHIS Unknown if ever smoked [facility] Work Phone: NEGATED: Highlighted row [facility] Medical Equipment Procedure Code Equipment Code Equipment Origin al Text Equipment Identifier Dates [id number], [id number], [id number] Start: 09-14-2023 End: 12-13-2023 Staple [id number] S tr Grt Wht Jaws Ntnl Bn Rpl [id number] - Sna - [id number] Start: 08-08-2024 Staple [id number] S tr Grt Wht Jaws Ntnl Bn Rpl [id number] - Sna - [id number] Start: 08-08-2024 Screw Bn 13mm 2m m Bite Mnstr [facility] Ns - Sna - [id number] Start: 08-08-2024 Screw Bn 10mm 2m m Hd Mn-Mnstr St Ns - [id number] Start: 08-08-2024 Goals Date Patient Goal Desired Activity /State Personal health goal Comment on above: Formatting of this n ote might be different from the original. Evaluation of progress towards goal: johns removal; pain management Clinical Notes 08-19-2021 to 10-29-2024 Georgi Carreon DPM - 10/29/2024 9:00 AM Cabrera Carreon DPM - 09/17/2024 9:45 AM Cabrera Carreon DPM - 09/04/2024 8:30 AM Nawaf Nelson MA - 08/21/2024 1:00 PM EDT Note Date & Type Note Facility 10-29-2024 History of Present illness Narrative Images from the original note were not included. Subjective Patient ID: Cindy Dumont is a 43 y.o. female who presents for FUV (Cindy Dumont is a 43 y.o. 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 Continues icing and advil prn. ). HPI Date of surgery 08/08/2024: 1st TMT arthrodesis, modified Lazaro bunionectomy, 2nd metatarsal osteotomy with flexor tendon transfer and tailor's bunionectomy of the 5th metatarsal. Patient presents to clinic postoperatively. Overall doing well. She notes some stiffness of the 2nd toe and would like it to bend but otherwise she has no concerns. Review of Systems Constitutional: Negative for activity change and appetite change. Respiratory: Negative for chest tightness and shortness of breath. Cardiovascular: Negative for chest pain. Musculoskeletal: Positive for arthralgias and gait problem. Skin: Negative for color change and wound. Neurological: Negative for weakness and numbness. Psychiatric/Behavioral: Negative for agitation and behavioral problems. Hematological: Does not bruise/bleed easily. Endocrine: Negative for cold intolerance and heat intolerance. Allergic/Immunologic: Negative for immunocompromised state. Past medical History Past Medical History: Diagnosis Date Encounter for gynecological examination (general) (routine) without abnormal findings Fibrocystic breast 05/2022 Frequent headaches Hirsutism Hypertension Labial cyst Menorrhagia Migraine Chronic Morbid obesity with BMI of 45.0-49.9, adult ([facility]) PCOS (polycystic ovarian syndrome) Pre-diabetes Rectal bleeding Off and on since 2018 Weight gain Medications Current Outpatient Medications: Alcohol Swabs (B-D SINGLE USE SWABS REGULAR) pads, , Disp: , Rfl: amLODIPine (Norvasc) 10 MG tablet, Take 10 mg by mouth in the morning., Disp: , Rfl: cyclobenzaprine (Flexeril) 10 MG tablet, Take 1 tablet (10 mg) by mouth 3 (three) times a day as needed for muscle spasms for up to 10 days, Disp: 30 tablet, Rfl: 0 escitalopram (Lexapro) 10 MG tablet, Take 10 mg by mouth in the morning., Disp: , Rfl: glucose blood (Agrar33Touch Verio) test strip, Use as instructed, Disp: 100 each, Rfl: 3 Lancets (OneTouch Delica Plus [id number]) misc, , Disp: , Rfl: losartan (Cozaar) 100 MG tablet, Take 100 mg by mouth Daily, Disp: , Rfl: metoprolol succinate XL (Toprol-XL) 50 MG 24 hr tablet, Take 50 mg by mouth 1 (one) time each day at the same time, Disp: , Rfl: MONOJECT 3CC SYRINGE 3 ML misc, , Disp: , Rfl: Mounjaro 12.5 MG/0.5ML solution auto-injector, inject 0.5 milliliters UNDER THE SKIN ONCE WEEKLY, Disp: 2 mL, Rfl: 3 nystatin (Mycostatin) [id number] UNIT/GM powder, Apply topically 3 (three) times a day as needed for rash, Disp: 30 g, Rfl: 1 ondansetron ODT (Zofran-ODT) 4 MG disintegrating tablet, DISSOLVE ONE TABLET UNDER THE TONGUE EVERY 6 HOURS NEEDED FOR NAUSEA AND VOMITING, Disp: 30 tablet, Rfl: 2 Viloxazine HCl ER (Qelbree) 200 MG capsule sustained-release 24 hr, Take 200 mg by mouth in the morning., Disp: , Rfl: Allergies Topiramate Past Surgical History Past Surgical History: Procedure Laterality Date APPENDECTOMY 2006 BREAST BIOPSY SECTION, LOW TRANSVERSE 04/2019 SECTION, LOW TRANSVERSE 05/07/2017 CHOLECYSTECTOMY 2005 COSMETIC SURGERY 01/25/24 ENDOMETRIAL ABLATION 12/22/2023 IUD INSERTION 2010 Mirena PAP SMEAR 07/07/2021 negative TUBAL LIGATION US PELVIC COMPLETE 11/2004 PCOS Family History Family History Problem Relation Name Age of Onset Hypertension Maternal Grandfather . Heart disease Maternal Grandfather . Stroke Maternal Grandfather . Cancer Maternal Grandfather . Drug abuse Maternal Grandfather . Drug abuse Father Tyrese Alcohol abuse Father Tyrese Depression Father Tyrese Diabetes Paternal Grandfather . Asthma Mother Kayla Vision loss Maternal Grandmother . Thyroid disease Maternal Grandmother . Objective Physical Exam Constitutional: Appearance: She is obese. Comments: Presents to clinic weight-bearing unassisted in [facility]. Accompanied by her . HENT: Head: Normocephalic and atraumatic. Cardiovascular: Pulses: Normal pulses. Pulmonary: Effort: Pulmonary effort is normal. No respiratory distress. Abdominal: Palpations: There is no mass. Musculoskeletal: Cervical back: No rigidity. Comments: Left foot: Incisions well healed. There is some very mild lateral deviation of the hallux. Second toe remains rectus. There is some hypersensitivity over the 1st TMTJ incision. No tenderness with stressing of the arthrodesis site. No tenderness with palpation of the arthrodesis site. Skin: Capillary Refill: Capillary refill takes less than 2 seconds. Findings: No lesion or rash. Neurological: Mental Status: She is alert. Comments: No loss of protective sensation, gross sensation intact. Psychiatric: Mood and Affect: Mood normal. Behavior: Behavior normal. XR foot 3+ views left Imaging Result: AP, medial oblique, lateral views [...] but otherwise deformity correction is holding well. Assessment/Plan ICD-10-CM 1. S/P foot surgery Z98.890 XR foot 3+ views left 2. Left foot pain M79.672 XR foot 3+ views left Patient examined and evaluated. Reviewed previous imaging studies. Repeated 3 radiographs of the left foot and discussed my findings. Overall she has progressed very nicely. At this time she has no restrictions other than avoiding impact activities such as running or jumping for an additional 1-2 months. Otherwise activity as tolerated. Shoe gear as tolerated. Follow up in 3 months for a six-month postop check. This note was created with the assistance of a speech recognition program. While intending to generate a timely document that accurately reflects the content of the visit, no guarantee can be provided that every grammatical or spelling mistake has been or will be identified or corrected. Thank you for your understanding. Georgi Carreon DPM documented in this encounter [facility] 09-17-2024 History of Present illness Narrative Images from the original note were not included. Subjective Patient ID: Cindy Dumont is a 43 y.o. female who presents for FUV (Cindy Dumont is a 43 y.o. female who presents for Post Op#3.Date of surgery 08/08/2024: Patient continues 325mg aspirin, icing and advil prn.). HPI Date of surgery 08/08/2024: 1st TMT arthrodesis, modified Lazaro bunionectomy, 2nd metatarsal osteotomy with flexor tendon transfer and tailor's bunionectomy of the 5th metatarsal. Patient presents to clinic postoperatively. Overall doing well. Review of Systems Constitutional: Positive for activity change. Negative for appetite change. Respiratory: Negative for chest tightness and shortness of breath. Cardiovascular: Negative for chest pain. Musculoskeletal: Positive for arthralgias and gait problem. Skin: Negative for color change and wound. Neurological: Negative for weakness and numbness. Psychiatric/Behavioral: Negative for agitation and behavioral problems. Hematological: Does not bruise/bleed easily. Endocrine: Negative for cold intolerance and heat intolerance. Allergic/Immunologic: Negative for immunocompromised state. Past medical History Past Medical History: Diagnosis Date Encounter for gynecological examination (general) (routine) without abnormal findings Fibrocystic breast 05/2022 Frequent headaches Hirsutism Hypertension Labial cyst Menorrhagia Migraine Chronic Morbid obesity with BMI of 45.0-49.9, adult ([facility]) PCOS (polycystic ovarian syndrome) Pre-diabetes Rectal bleeding Off and on since 2018 Weight gain Medications Current Outpatient Medications: Alcohol Swabs (B-D SINGLE USE SWABS REGULAR) pads, , Disp: , Rfl: amLODIPine (Norvasc) 10 MG tablet, Take 10 mg by mouth in the morning., Disp: , Rfl: Blood Glucose Monitoring Suppl (D-Care Glucometer) w/Device kit, 1 kit Daily Use four times daily to check FSBS. In the morning prior to breakfast & 1 hour after each meal for a total of 4times daily., Disp: 1 kit, Rfl: 0 cyclobenzaprine (Flexeril) 10 MG tablet, Take 1 tablet (10 mg) by mouth 3 (three) times a day as needed for muscle spasms for up to 10 days, Disp: 30 tablet, Rfl: 0 escitalopram (Lexapro) 10 MG tablet, Take 10 mg by mouth in the morning., Disp: , Rfl: glucose blood (Agrar33Touch Verio) test strip, Use as instructed, Disp: 100 each, Rfl: 3 Lancets (OneTouch Delica Plus [id number]) [facility], , Disp: , Rfl: losartan (Cozaar) 100 MG tablet, Take 100 mg by mouth Daily, Disp: , Rfl: metoprolol succinate XL (Toprol-XL) 50 MG 24 hr tablet, Take 50 mg by mouth 1 (one) time each day at the same time, Disp: , Rfl: MONOJECT 3CC SYRINGE 3 ML misc, , Disp: , Rfl: Mounjaro 12.5 MG/0.5ML solution auto-injector, inject 0.5 milliliters UNDER THE SKIN ONCE WEEKLY, Disp: 2 mL, Rfl: 3 ondansetron ODT (Zofran-ODT) 4 MG disintegrating tablet, DISSOLVE ONE TABLET UNDER THE TONGUE EVERY 6 HOURS NEEDED FOR NAUSEA AND VOMITING, Disp: 30 tablet, Rfl: 2 Viloxazine HCl ER (Qelbree) 200 MG capsule sustained-release 24 hr, Take 200 mg by mouth in the morning., Disp: , Rfl: Allergies Topiramate Past Surgical History Past Surgical History: Procedure Laterality Date APPENDECTOMY 2006 BREAST BIOPSY SECTION, LOW TRANSVERSE 04/2019 SECTION, LOW TRANSVERSE 05/07/2017 CHOLECYSTECTOMY 2004 COSMETIC SURGERY 01/25/24 ENDOMETRIAL ABLATION 12/22/2023 IUD INSERTION 2010 Mirena PAP SMEAR 07/07/2021 negative TUBAL LIGATION US PELVIC COMPLETE 11/2004 PCOS Family History Family History Problem Relation Name Age of Onset Hypertension Maternal Grandfather . Heart disease Maternal Grandfather . Stroke Maternal Grandfather . Cancer Maternal Grandfather . Drug abuse Maternal Grandfather . Drug abuse Father Tyrese Alcohol abuse Father Tyrese Depression Father Tyrese Diabetes Paternal Grandfather . Asthma Mother Kayla Vision loss Maternal Grandmother . Thyroid disease Maternal Grandmother . Objective Physical Exam Constitutional: Appearance: She is obese. Comments: Presents to clinic weight-bearing unassisted with a fracture boot on the left foot. HENT: Head: Normocephalic and atraumatic. Cardiovascular: Pulses: Normal pulses. Pulmonary: Effort: Pulmonary effort is normal. No respiratory distress. Abdominal: Palpations: There is no mass. Musculoskeletal: Cervical back: No rigidity. Comments: Left foot: Incisions well coapted. Hallux and 2nd toe rectus. No tenderness to palpation of the 1st TMT. No appreciable range of motion or tenderness with stressing of the 1st TMT. Second toe is slightly edematous but nonpainful. Skin: Capillary Refill: Capillary refill takes less than 2 seconds. Findings: No lesion or rash. Neurological: Mental Status: She is alert. Comments: No loss of protective sensation, gross sensation intact. Psychiatric: Mood and Affect: Mood normal. Behavior: Behavior normal. XR foot 3+ views left Imaging Result: AP, medial oblique, lateral views are weight-bearing. Appears to be excellent bone apposition of the 1st tarsometatarsal joint. No joint space or lucency visualized. Orthopedic implants intact without any signs of shift or malalignment. Enthesophyte at the insertion of the plantar fascia and small enthesophyte at the insertion of the Achilles tendon. There has been reduction of the IM 1-2 angle. Hallux is rectus. Sesamoids are well reduced. Assessment/Plan ICD-10-CM 1. S/P foot surgery Z98.890 XR foot 3+ views left Ambulatory referral to Physical Therapy 2. Left foot pain M79.672 XR foot 3+ views left Ambulatory referral to Physical Therapy Patient examined and evaluated. Reviewed previous imaging studies. Repeated 3 radiographs of the left foot and discussed my findings. Overall she has progressed very nicely. At this time we will transition her out of the fracture boot in this transition phase was discussed in detail. Recommend formalized physical therapy focusing on range of motion and stretching exercises as she transitions out of the boot. Referral sent to [facility] [place]. I will follow up with her in 6 weeks with repeat radiographs of the left foot at that time. This note was created with the assistance of a speech recognition program. While intending to generate a timely document that accurately reflects the content of the visit, no guarantee can be provided that every grammatical or spelling mistake has been or will be identified or corrected. Thank you for your understanding. Georgi Carreon DPM documented in this encounter [facility] 09-04-2024 History of Present illness Narrative Images from the original note were not included. Subjective Patient ID: Cindy Dumont is a 43 y.o. female who presents for POV#2 (Cindy Dumont is a 43 y.o. female who presents for Post Op#2.Date of surgery 08/08/2024: Patient continues 325mg aspirin, icing and advil prn.). HPI Date of surgery 08/08/2024: 1st TMT arthrodesis, modified Lazaro bunionectomy, 2nd metatarsal osteotomy with flexor tendon transfer and tailor's bunionectomy of the 5th metatarsal. Patient presents to clinic postoperatively. Overall doing well. Review of Systems Constitutional: Positive for activity change. Negative for appetite change. Respiratory: Negative for chest tightness and shortness of breath. Cardiovascular: Negative for chest pain. Musculoskeletal: Positive for arthralgias and gait problem. Skin: Negative for color change and wound. Neurological: Negative for weakness and numbness. Psychiatric/Behavioral: Negative for agitation and behavioral problems. Hematological: Does not bruise/bleed easily. Endocrine: Negative for cold intolerance and heat intolerance. Allergic/Immunologic: Negative for immunocompromised state. Past medical History Past Medical History: Diagnosis Date Encounter for gynecological examination (general) (routine) without abnormal findings Fibrocystic breast 05/2022 Frequent headaches Hirsutism Hypertension (CMS/HCC) Labial cyst Menorrhagia Migraine Chronic Morbid obesity with BMI of 45.0-49.9, adult (CMS/HCC) PCOS (polycystic ovarian syndrome) Pre-diabetes Rectal bleeding Off and on since 2018 Weight gain Medications Current Outpatient Medications: Alcohol Swabs (B-D SINGLE USE SWABS REGULAR) pads, , Disp: , Rfl: amLODIPine (Norvasc) 10 MG tablet, Take 10 mg by mouth in the morning., Disp: , Rfl: Blood Glucose Monitoring Suppl (D-Care Glucometer) w/Device kit, 1 kit Daily Use four times daily to check FSBS. In the morning prior to breakfast & 1 hour after each meal for a total of 4times daily., Disp: 1 kit, Rfl: 0 cyclobenzaprine (Flexeril) 10 MG tablet, Take 1 tablet (10 mg) by mouth 3 (three) times a day as needed for muscle spasms for up to 10 days, Disp: 30 tablet, Rfl: 0 escitalopram (Lexapro) 10 MG tablet, Take 10 mg by mouth in the morning., Disp: , Rfl: glucose blood (Agrar33Touch Verio) test strip, Use as instructed, Disp: 100 each, Rfl: 3 Lancets (OneTouch Delica Plus [id number]) [facility], , Disp: , Rfl: losartan (Cozaar) 100 MG tablet, Take 100 mg by mouth Daily, Disp: , Rfl: metoprolol succinate XL (Toprol-XL) 50 MG 24 hr tablet, Take 50 mg by mouth 1 (one) time each day at the same time, Disp: , Rfl: MONOJECT 3CC SYRINGE 3 ML misc, , Disp: , Rfl: Mounjaro 12.5 MG/0.5ML solution auto-injector, inject 0.5 milliliters UNDER THE SKIN ONCE WEEKLY, Disp: 2 mL, Rfl: 3 ondansetron ODT (Zofran-ODT) 4 MG disintegrating tablet, DISSOLVE ONE TABLET UNDER THE TONGUE EVERY 6 HOURS NEEDED FOR NAUSEA AND VOMITING, Disp: 30 tablet, Rfl: 2 Viloxazine HCl ER (Qelbree) 200 MG capsule sustained-release 24 hr, Take 200 mg by mouth in the morning., Disp: , Rfl: Allergies Topiramate Past Surgical History Past Surgical History: Procedure Laterality Date APPENDECTOMY 2006 BREAST BIOPSY SECTION, LOW TRANSVERSE 04/2019 SECTION, LOW TRANSVERSE 05/07/2017 CHOLECYSTECTOMY 2004 COSMETIC SURGERY 01/25/24 ENDOMETRIAL ABLATION 12/22/2023 IUD INSERTION 2010 Mirena PAP SMEAR 07/07/2021 negative TUBAL LIGATION US PELVIC COMPLETE 11/2004 PCOS Family History Family History Problem Relation Name Age of Onset Hypertension Maternal Grandfather . Heart disease Maternal Grandfather . Stroke Maternal Grandfather . Cancer Maternal Grandfather . Drug abuse Maternal Grandfather . Drug abuse Father Tyrese Alcohol abuse Father Tyrese Depression Father Tyrese Diabetes Paternal Grandfather . Asthma Mother Kayla Vision loss Maternal Grandmother . Thyroid disease Maternal Grandmother . Objective Physical Exam Constitutional: Appearance: She is obese. Comments: Presents to clinic weight-bearing with crutch assistance. Fracture boot on the left foot. HENT: Head: Normocephalic and atraumatic. Cardiovascular: Pulses: Normal pulses. Pulmonary: Effort: Pulmonary effort is normal. No respiratory distress. Abdominal: Palpations: There is no mass. Musculoskeletal: Cervical back: No rigidity. Comments: Left foot: Incisions well coapted. No drainage or cellulitis. Negative Homans test. No tenderness with range of motion of the calf. Hallux rectus. Second toe rectus. Skin: Capillary Refill: Capillary refill takes less than 2 seconds. Findings: No lesion or rash. Neurological: Mental Status: She is alert. Comments: No loss of protective sensation, gross sensation intact. Psychiatric: Mood and Affect: Mood normal. Behavior: Behavior normal. Assessment/Plan ICD-10-CM 1. S/P foot surgery Z98.890 2. Left foot pain M79.672 Patient examined and evaluated. Reviewed previous imaging studies. I am pleased with the clinical appearance of her foot and it sounds like she is doing well overall. Continue to stress elevation. She will continue to use the fracture boot whenever weight-bearing. She maybe 75 percent weight-bearing in the boot today and 100 percent weight-bearing in the boot next week. No ambulation outside of the fracture boot. Follow up 2 weeks with repeat radiographs of the left foot at that time. Continue 325 mg aspirin once daily for DVT prophylaxis. This note was created with the assistance of a speech recognition program. While intending to generate a timely document that accurately reflects the content of the visit, no guarantee can be provided that every grammatical or spelling mistake has been or will be identified or corrected. Thank you for your understanding. Georgi Carreon DPM documented in this encounter [facility] 08-21-2024 History of Present illness Narrative \ Images from the original note were not included. Subjective Patient ID: Cindy Dumont is a 43 y.o. female who presents for Post Op#1 ( Cindy Dumont is a 43 y.o. female who presents for Post Op#1. ). HPI Date of surgery 08/08/2024: 1st TMT arthrodesis, modified Lazaro bunionectomy, 2nd metatarsal osteotomy with flexor tendon transfer and tailor's bunionectomy of the 5th metatarsal. Patient presents to clinic postoperatively. Overall doing well. Review of Systems Constitutional: Positive for activity change. Negative for appetite change. Respiratory: Negative for chest tightness and shortness of breath. Cardiovascular: Negative for chest pain. Musculoskeletal: Positive for arthralgias and gait problem. Skin: Negative for color change and wound. Neurological: Negative for weakness and numbness. Psychiatric/Behavioral: Negative for agitation and behavioral problems. Hematological: Does not bruise/bleed easily. Endocrine: Negative for cold intolerance and heat intolerance. Allergic/Immunologic: Negative for immunocompromised state. Past medical History Past Medical History: Diagnosis Date Encounter for gynecological examination (general) (routine) without abnormal findings Fibrocystic breast 05/2022 Frequent headaches Hirsutism Hypertension (CMS/HCC) Labial cyst Menorrhagia Migraine Chronic Morbid obesity with BMI of 45.0-49.9, adult (CMS/HCC) PCOS (polycystic ovarian syndrome) Pre-diabetes Rectal bleeding Off and on since 2018 Weight gain Medications Current Outpatient Medications: Alcohol Swabs (B-D SINGLE USE SWABS REGULAR) pads, , Disp: , Rfl: amLODIPine (Norvasc) 10 MG tablet, Take 10 mg by mouth in the morning., Disp: , Rfl: Blood Glucose Monitoring Suppl ([employer] Glucometer) w/Device kit, 1 kit Daily Use four times daily to check FSBS. In the morning prior to breakfast & 1 hour after each meal for a total of 4times daily., Disp: 1 kit, Rfl: 0 cyclobenzaprine (Flexeril) 10 MG tablet, Take 1 tablet (10 mg) by mouth 3 (three) times a day as needed for muscle spasms for up to 10 days, Disp: 30 tablet, Rfl: 0 escitalopram (Lexapro) 10 MG tablet, Take 10 mg by mouth in the morning., Disp: , Rfl: glucose blood (OneTouch Verio) test strip, Use as instructed, Disp: 100 each, Rfl: 3 Lancets (OneTouch Delica Plus [id number]) [facility], , Disp: , Rfl: losartan (Cozaar) 100 MG tablet, Take 100 mg by mouth Daily, Disp: , Rfl: metoprolol succinate XL (Toprol-XL) 50 MG 24 hr tablet, Take 50 mg by mouth 1 (one) time each day at the same time, Disp: , Rfl: MONOJECT 3CC SYRINGE 3 ML [facility], , Disp: , Rfl: Mounjaro 12.5 MG/0.5ML solution auto-injector, inject 0.5 milliliters UNDER THE SKIN ONCE WEEKLY, Disp: 2 mL, Rfl: 3 ondansetron ODT (Zofran-ODT) 4 MG disintegrating tablet, DISSOLVE ONE TABLET UNDER THE TONGUE EVERY 6 HOURS NEEDED FOR NAUSEA AND VOMITING, Disp: 30 tablet, Rfl: 2 Viloxazine HCl ER (Qelbree) 200 MG capsule sustained-release 24 hr, Take 200 mg by mouth in the morning., Disp: , Rfl: Allergies Topiramate Past Surgical History Past Surgical History: Procedure Laterality Date APPENDECTOMY 2006 BREAST BIOPSY SECTION, LOW TRANSVERSE 04/2019 SECTION, LOW TRANSVERSE 05/07/2017 CHOLECYSTECTOMY 2005 COSMETIC SURGERY 01/25/24 ENDOMETRIAL ABLATION 12/22/2023 IUD INSERTION 2010 Mirena PAP SMEAR 07/07/2021 negative TUBAL LIGATION US PELVIC COMPLETE 11/2004 PCOS Family History Family History Problem Relation Name Age of Onset Hypertension Maternal Grandfather . Heart disease Maternal Grandfather . Stroke Maternal Grandfather . Cancer Maternal Grandfather . Drug abuse Maternal Grandfather . Drug abuse Father Tyrese Alcohol abuse Father Tyrese Depression Father Tyrese Diabetes Paternal Grandfather . Asthma Mother Kayla Vision loss Maternal Grandmother . Thyroid disease Maternal Grandmother . Objective Physical Exam Constitutional: Appearance: She is obese. Comments: Presents to clinic nonweightbearing on the left lower extremity. Utilizing a knee scooter. Intact AO splint. HENT: Head: Normocephalic and atraumatic. Cardiovascular: Pulses: Normal pulses. Pulmonary: Effort: Pulmonary effort is normal. No respiratory distress. Abdominal: Palpations: There is no mass. Musculoskeletal: Cervical back: No rigidity. Comments: Left foot: Incisions well coapted with sutures intact. No drainage or cellulitis. Negative Homans test. No tenderness with range of motion of the calf. Hallux rectus. Second toe in slight plantar flexion. Skin: Capillary Refill: Capillary refill takes less than 2 seconds. Findings: No lesion or rash. Neurological: Mental Status: She is alert. Comments: No loss of protective sensation, gross sensation intact. Psychiatric: Mood and Affect: Mood normal. Behavior: Behavior normal. XR foot 3+ views left Imaging Result: AP, medial oblique, lateral views are nonweightbearing. Orthopedic implants intact without signs of lucency. First TMT appears well approximated without any joint space visible. Enthesophyte at the insertion of the Achilles tendon and plantar fascia. Assessment/Plan ICD-10-CM 1. S/P foot surgery Z98.890 XR foot 3+ views left 2. Left foot pain M79.672 XR foot 3+ views left 3. Difficulty walking R26.2 4. Instability of left ankle joint M25.372 Patient was examined and evaluated. Radiographs of the left foot taken in office and I discussed my findings. I am pleased with the clinical and radiographic appearance. Sutures were removed in office. Incisions reinforced with Steri-Strips. 25 percent weight-bearing starting today, 50 percent weight-bearing starting next week. No weight-bearing outside of the fracture boot. Fracture boot should be worn at all times weight-bearing. Patient was fitted today for a below knee walking cast, cam walker. At the time of dispensing it was suitable and not substandard. Goals of therapy include prevent further injury, stabilization, reduction of stress and pressure to the operative area. Anticipated time of use is at least 6-8 weeks. Patient was instructed in the application and removal of this device. It fit well. ABN form discussed, presented, explained and then signed by patient. Follow up in 2 weeks for incision check. Patient may shower and get the foot wet. Avoid soaking in a pool or hot tub for an additional 2 weeks. Continue 325 mg aspirin once daily for DVT prophylaxis. This note was created with the assistance of a speech recognition program. While intending to generate a timely document that accurately reflects the content of the visit, no guarantee can be provided that every grammatical or spelling mistake has been or will be identified or corrected. Thank you for your understanding. Georgi Carreon DPM documented in this encounter [facility] 08-05-2024 Note [place] [facility] - [facility] Subjective Karuna Dumont is a 43 y.o. year old female being seen for follow up medication changes and renal artery duplex. Echo is scheduled for tomorrow at [facility] in [place]. She needs cleared for foot surgery scheduled for at [facility] also. BP has been much better she says with the higher dose of amlodipine. Feels good. Denies chest pain, SOB, and palpitations. Patient Active Problem List Diagnosis Attention deficit hyperactivity disorder (ADHD), predominantly inattentive type Breast pain DDD (degenerative disc disease), lumbar Decreased movements in third trimester Fibrocystic breast changes Frequent headaches Generalized anxiety disorder Hallux valgus (acquired), left foot Hirsutism History of multiple miscarriages History of spontaneous History of PCOS History of delivery Insulin controlled gestational diabetes mellitus (GDM) in second trimester Insulin resistance Irritable bowel syndrome Labial cyst Mallet deformity of right ring finger Menorrhagia Migraines Myelopathy (CMS/HCC) Neurogenic bladder BMI 45.0-49.9, adult (CMS/HCC) Panniculitis affecting back Polycystic ovarian syndrome Psychophysiological insomnia Vitamin B12 deficiency Weight gain Family History Problem Relation Name Age of Onset Heart murmur Mother No Known Problems Father Social History Tobacco Use Smoking status: Never Smokeless tobacco: Never Substance Use Topics Alcohol use: Never HPI Visit of 07/03/2024: Karuna is seen as a new patient referred from Dr Winter's office for uncontrolled hypertension. She is a 43-year-old woman with history of ADHD and was on Adderall that was recently stopped. She has history of obesity and underwent pending colectomy surgery in January 2024. She noted in April 2024 that her blood pressure was elevated. This happened to coincide with symptoms of not feeling well and worsening headaches and migraine. She was started on metoprolol succinate 50 mg daily and losartan which was increased from 50 to 100 mg daily. She noticed that her blood pressure is still not controlled. Today in the office her blood pressure is 156/109 and this is similar to her readings at home. Outside of worsening headaches and migraine she reports palpitations happening once a week. But she has no chest pain, shortness of breath or leg edema. Visit of 08/05/2024: She is seen in follow-up. at last visit due to uncontrolled hypertension I added amlodipine 5 mg daily and this was then increased subsequently to 10 mg daily based on blood pressure monitoring. I ordered an echocardiogram due to palpitations and hypertension and this will be performed tomorrow. I also checked blood testing including metanephrines, aldosterone and renin activity as well as duplex renal ultrasound and those were negative. Today she reports that she has been doing better. She denies chest pain, shortness of breath and palpitations. She is getting orthopedic surgery later this week to correct bunion and plantar fasciitis in the left foot. Review of Systems Neurological: Positive for headaches (Migrains are becoming more frequent.). Psychiatric/Behavioral: The patient is nervous/anxious. All other systems reviewed and are negative. Objective Visit Vitals BP 115/83 (BP Location: Left arm, Patient Position: Sitting) Pulse 91 Ht 1.651 m (5' 5 ) Wt 93.4 kg (206 lb) SpO2 100% BMI 34.28 kg/m??? Smoking Status Never BSA 2.07 m??? Physical Exam Constitutional: Appearance: She is well-developed. She is not ill-appearing. HENT: Head: Normocephalic and atraumatic. Nose: Nose normal. Eyes: General: No scleral icterus. Pupils: Pupils are equal, round, and reactive to light. Neck: Thyroid: No thyromegaly. Vascular: No JVD. Cardiovascular: Rate and Rhythm: Normal rate and regular rhythm. Pulses: Radial pulses are 2+ on the right side and 2+ on the left side. Heart sounds: Normal heart sounds. No murmur heard. No friction rub. No gallop. Pulmonary: Effort: Pulmonary effort is normal. No respiratory distress. Breath sounds: Normal breath sounds. No wheezing or rales. Chest: Chest wall: No tenderness. Abdominal: General: Bowel sounds are normal. There is no distension. Palpations: Abdomen is soft. Tenderness: There is no abdominal tenderness. Musculoskeletal: General: No swelling. Cervical back: Neck supple. Skin: General: Skin is warm and dry. Neurological: General: No focal deficit present. Mental Status: She is alert and oriented to person, place, and time. Psychiatric: Mood and Affect: Mood normal. Behavior: Behavior is cooperative. Judgment: Judgment normal. Allergies Allergies Allergen Reactions Adhesive Rash Pt states allergic to paper tape Topiramate Other, Swelling and Unknown Medications Current Outpatient Medications: amLODIPin (more content not included)... [facility] 07-31-2024 Instructions Mary Ellen Castellon RN - 07/31/2024 2:15 PM EDT Preoperative Education Checklist- General Surgery date: 08/08/24 Surgery time: 0730 a.m. Arrival time: 0610 a.m. 1. Bring a photo ID and your insurance card with you the day of surgery. You will check in at the main lobby of the [facility]- registration desk is straight ahead as soon as you walk in. Tell them you are here for surgery. 2. If you have a Living Will/Durable Power of Radio Station Engineer for Health Care that is not on file here, please bring a copy the day of surgery. 3. Please shower/bathe the night before surgery with the provided soap or wipes. Do not shower the morning of surgery- you will do use wipes when you arrive here at the hospital before getting into your surgical gown. Do not shave the area of your procedure for 2 days prior to your surgery. 4. NO powder, lotion, perfume/cologne, aftershave, make-up, deodorant, or hair products after you have bathed. 5. NO nail macanese/acrylic on at least one finger. If you are having a hand, wrist or foot surgery then all nail macanese and artificial/acrylic nails must be removed from that hand or foot. 6. Avoid ALL Aspirin and non-steroidal anti-inflammatory drugs and certain vitamins (Ibuprofen, Advil, Aleve, Excedrin, Meloxicam, Celebrex, fish/krill oil, etc.) for 7 days prior to surgery as instructed by your surgeon and/or your prescribing doctor. Tylenol IS ALLOWED. If you are on Ticlid, Xarelto, Eliquis, Pradaxa, Plavix or Coumadin, please check with your prescribing doctor for instructions for when to stop them. 7. If you use an inhaler, continue to use it routinely. 8. Nothing to eat or drink (not even water, gum, mints, or hard candy!) AFTER midnight prior to your surgery. 9. Take only medications that you are instructed to on the morning of surgery with a TINY SIP OF WATER. 10. Choose a responsible adult that will be able to drive you home when you are discharged from your hospital stay for your surgery and can stay with you in your home for 24 hours after your procedure. You must NOT drive any vehicle or operate any machinery for 24 hours after surgery. 11. When you dress for your appointment, please wear loose fitting clothing that is appropriate to accommodate your surgical area procedure. BRING WITH YOU ANY DEVICES YOU MAY NEED: MINI hose, ice machine, sling/swath, brace or special shoe, oversized zip-up or button up shirt, CPAP machine if staying overnight. 12. Do NOT wear jewelry, watches, or any piercings or metal for surgery- leave these valuables and money at home. 13. Do NOT wear contact lenses for surgery- glasses are okay if needed. 14. The anesthesiologist will talk with you the day of surgery and will ask you to sign a Consent Form. 15. Refrain from smoking or any type of tobacco use for at least 8 hours and marijuana for 24 hours prior to arrival for your surgery. 16. If a GREEN BLOOD band is given to you, please bring it with you for the day of surgery. 17. Notify your surgeon if you develop any illness before your surgery. 18. If you are staying overnight, please DO NOT BRING your home medications with you. 19. If you have any questions prior to surgery, please call the Preadmission Testing office at [phone], Mon.-Fri. 7 a.m.-3 p.m. Leave a voicemail if needed. Pre-Surgery Instructions: Medication Instructions amLODIPine (NORVASC) 5 mg tablet Continue as prescribed, take morning of procedure BD ALCOHOL SWABS pads, medicated Stop taking 0 days prior to procedure escitalopram (LEXAPRO) 10 mg tablet Stop taking 0 days prior to procedure gelatin, empty no. 00, capsule Stop taking 0 days prior to procedure losartan (COZAAR) 100 mg tablet Continue as prescribed, take morning of procedure magnesium glycinate 100 mg magnesium capsule Stop taking 0 days prior to procedure metoprolol succinate XL (TOPROL XL) 50 mg 24 hr tablet Continue as prescribed, take morning of procedure MONOJECT LUER-LOCK TIP 3 mL syringe- Mounjaro injection Stop taking 1 week prior to surgery ondansetron ODT (ZOFRAN ODT) 4 mg disintegrating tablet Stop taking 0 days prior to procedure ONETOUCH DELICA PLUS LANCET 33 gauge misc Stop taking 0 days prior to procedure ONETOUCH VERIO TEST STRIPS strip Stop taking 0 days prior to procedure viloxazine (QELBREE) 200 mg capsule,extended release 24hr Stop taking 0 days prior to procedure How to Avoid an Infection after Your Surgery Your doctor will give you specific instructions, but remember: -ALWAYS wash hands before caring for your incision. -No picking, scratching, or rubbing your incision. -No creams, lotion, powder, rubbing alcohol or hydrogen peroxide on the incision (can harm the tissue and slow healing). -Your doctor will give you specific instructions for what type of dressing you will need and how often it will need changed for infection purposes. -No tight clothing on incision. -Do not allow anyone to touch your incision unless they are cleaning, checking, or redressing it (be sure they wash their hands first). -No contact of your incision with pets; avoid sleeping with pets. -Take full course of antibiotic if prescribed for you after surgery- do not stop unless directed to by your physician. You may also be given an antibiotic prior to your surgery to help prevent surgical site infections. -Eat a healthy and varied diet including proteins, fruits, and vegetables to help promote wound healing and keep blood sugars under control if you are diabetic. -Smoking slows the healing process by decreasing the amount of oxygen in your blood that is needed for tissue healing. Try to avoid or stop smoking if possible. LOOK at your incision each morning and each night to check the progress of healing. Some soreness, numbness, itching and/or mild bruising around the incision is normal. Call your doctor if you notice any of the following: -Increased redness or hardening around the incision area. -Increased pain at the incision site. -Incision feels hot to the touch. -Swelling or pulling apart of the incision edges. -Yellow or green drainage or foul odor coming from the incision. -Bleeding from the incision (apply pressure as needed). -Fever higher than 101 degrees Fahrenheit for more than 4 hours. SHOWERING: Your doctor will give you specific instructions, but remember: -Be careful getting into and out of the shower. -Showers should be quick (5 minutes or less). -Use a clean washcloth to gently wash your incision with soap and water and pat the area dry with a clean towel. -No re-using wash cloths or towels; get a fresh one to clean your incision. -Do not soak in the bathtub, go swimming or use a hot tub (Jacuzzi), or perform activities where your incision is submerged in water or exposed to any fluids or substances until instructed by your doctor. -If your have the sticky strips (steri-strips) over the incision, it is OK to shower with them. Do not remove them. Let them fall off on their own. If you have a question, call your doctor s office. Go to the follow-up appointment with your doctor. documented in this encounter [employer] 07-31-2024 Miscellaneous Notes Preoperative Education Checklist- General Surgery date: 08/08/24 Surgery time: 0730 a.m. Arrival time: 0610 a.m. 1. Bring a photo ID and your insurance card with you the day of surgery. You will check in at the main lobby of the [facility]- registration desk is straight ahead as soon as you walk in. Tell them you are here for surgery. 2. If you have a Living Will/Durable Power of Radio Station Engineer for Health Care that is not on file here, please bring a copy the day of surgery. 3. Please shower/bathe the night before surgery with the provided soap or wipes. Do not shower the morning of surgery- you will do use wipes when you arrive here at the hospital before getting into your surgical gown. Do not shave the area of your procedure for 2 days prior to your surgery. 4. NO powder, lotion, perfume/cologne, aftershave, make-up, deodorant, or hair products after you have bathed. 5. NO nail macanese/acrylic on at least one finger. If you are having a hand, wrist or foot surgery then all nail macanese and artificial/acrylic nails must be removed from that hand or foot. 6. Avoid ALL Aspirin and non-steroidal anti-inflammatory drugs and certain vitamins (Ibuprofen, Advil, Aleve, Excedrin, Meloxicam, Celebrex, fish/krill oil, etc.) for 7 days prior to surgery as instructed by your surgeon and/or your prescribing doctor. Tylenol IS ALLOWED. If you are on Ticlid, Xarelto, Eliquis, Pradaxa, Plavix or Coumadin, please check with your prescribing doctor for instructions for when to stop them. 7. If you use an inhaler, continue to use it routinely. 8. Nothing to eat or drink (not even water, gum, mints, or hard candy!) AFTER midnight prior to your surgery. 9. Take only medications that you are instructed to on the morning of surgery with a TINY SIP OF WATER. 10. Choose a responsible adult that will be able to drive you home when you are discharged from your hospital stay for your surgery and can stay with you in your home for 24 hours after your procedure. You must NOT drive any vehicle or operate any machinery for 24 hours after surgery. 11. When you dress for your appointment, please wear loose fitting clothing that is appropriate to accommodate your surgical area procedure. BRING WITH YOU ANY DEVICES YOU MAY NEED: MINI hose, ice machine, sling/swath, brace or special shoe, oversized zip-up or button up shirt, CPAP machine if staying overnight. 12. Do NOT wear jewelry, watches, or any piercings or metal for surgery- leave these valuables and money at home. 13. Do NOT wear contact lenses for surgery- glasses are okay if needed. 14. The anesthesiologist will talk with you the day of surgery and will ask you to sign a Consent Form. 15. Refrain from smoking or any type of tobacco use for at least 8 hours and marijuana for 24 hours prior to arrival for your surgery. 16. If a GREEN BLOOD band is given to you, please bring it with you for the day of surgery. 17. Notify your surgeon if you develop any illness before your surgery. 18. If you are staying overnight, please DO NOT BRING your home medications with you. 19. If you have any questions prior to surgery, please call the Preadmission Testing office at [phone], Mon.-Fri. 7 a.m.-3 p.m. Leave a voicemail if needed. Pre-Surgery Instructions: Medication Instructions amLODIPine (NORVASC) 5 mg tablet Continue as prescribed, take morning of procedure BD ALCOHOL SWABS pads, medicated Stop taking 0 days prior to procedure escitalopram (LEXAPRO) 10 mg tablet Stop taking 0 days prior to procedure gelatin, empty no. 00, capsule Stop taking 0 days prior to procedure losartan (COZAAR) 100 mg tablet Continue as prescribed, take morning of procedure magnesium glycinate 100 mg magnesium capsule Stop taking 0 days prior to procedure metoprolol succinate XL (TOPROL XL) 50 mg 24 hr tablet Continue as prescribed, take morning of procedure MONOJECT LUER-LOCK TIP 3 mL syringe- Mounjaro injection Stop taking 1 week prior to surgery ondansetron ODT (ZOFRAN ODT) 4 mg disintegrating tablet Stop taking 0 days prior to procedure ONETOUCH DELICA PLUS LANCET 33 gauge misc Stop taking 0 days prior to procedure ONETOUCH VERIO TEST STRIPS strip Stop taking 0 days prior to procedure viloxazine (QELBREE) 200 mg capsule,extended release 24hr Stop taking 0 days prior to procedure How to Avoid an Infection after Your Surgery Your doctor will give you specific instructions, but remember: -ALWAYS wash hands before caring for your incision. -No picking, scratching, or rubbing your incision. -No creams, lotion, powder, rubbing alcohol or hydrogen peroxide on the incision (can harm the tissue and slow healing). -Your doctor will give you specific instructions for what type of dressing you will need and how often it will need changed for infection purposes. -No tight clothing on incision. -Do not allow anyone to touch your incision unless they are cleaning, checking, or redressing it (be sure they wash their hands first). -No contact of your incision with pets; avoid sleeping with pets. -Take full course of antibiotic if prescribed for you after surgery- do not stop unless directed to by your physician. You may also be given an antibiotic prior to your surgery to help prevent surgical site infections. -Eat a healthy and varied diet including proteins, fruits, and vegetables to help promote wound healing and keep blood sugars under control if you are diabetic. -Smoking slows the healing process by decreasing the amount of oxygen in your blood that is needed for tissue healing. Try to avoid or stop smoking if possible. LOOK at your incision each morning and each night to check the progress of healing. Some soreness, numbness, itching and/or mild bruising around the incision is normal. Call your doctor if you notice any of the following: -Increased redness or hardening around the incision area. -Increased pain at the incision site. -Incision feels hot to the touch. -Swelling or pulling apart of the incision edges. -Yellow or green drainage or foul odor coming from the incision. -Bleeding from the incision (apply pressure as needed). -Fever higher than 101 degrees Fahrenheit for more than 4 hours. SHOWERING: Your doctor will give you specific instructions, but remember: -Be careful getting into and out of the shower. -Showers should be quick (5 minutes or less). -Use a clean washcloth to gently wash your incision with soap and water and pat the area dry with a clean towel. -No re-using wash cloths or towels; get a fresh one to clean your incision. -Do not soak in the bathtub, go swimming or use a hot tub (Jacuzzi), or perform activities where your incision is submerged in water or exposed to any fluids or substances until instructed by your doctor. -If your have the sticky strips (steri-strips) over the incision, it is OK to shower with them. Do not remove them. Let them fall off on their own. If you have a question, call your doctor s office. Go to the follow-up appointment with your doctor. Hibiclens and surgical instructions reviewed. Patient verbalized understanding. Lisette at Dr Carreon's office notified of need for cardiac clearance once patient has her ECHO completed. documented in this encounter [facility] 07-31-2024 Nurse Note Preoperative Education Checklist- General Surgery date: 08/08/24 Surgery time: 0730 a.m. Arrival time: 0610 a.m. 1. Bring a photo ID and your insurance card with you the day of surgery. You will check in at the main lobby of the [facility]- registration desk is straight ahead as soon as you walk in. Tell them you are here for surgery. 2. If you have a Living Will/Durable Power of Radio Station Engineer for Health Care that is not on file here, please bring a copy the day of surgery. 3. Please shower/bathe the night before surgery with the provided soap or wipes. Do not shower the morning of surgery- you will do use wipes when you arrive here at the hospital before getting into your surgical gown. Do not shave the area of your procedure for 2 days prior to your surgery. 4. NO powder, lotion, perfume/cologne, aftershave, make-up, deodorant, or hair products after you have bathed. 5. NO nail macanese/acrylic on at least one finger. If you are having a hand, wrist or foot surgery then all nail macanese and artificial/acrylic nails must be removed from that hand or foot. 6. Avoid ALL Aspirin and non-steroidal anti-inflammatory drugs and certain vitamins (Ibuprofen, Advil, Aleve, Excedrin, Meloxicam, Celebrex, fish/krill oil, etc.) for 7 days prior to surgery as instructed by your surgeon and/or your prescribing doctor. Tylenol IS ALLOWED. If you are on Ticlid, Xarelto, Eliquis, Pradaxa, Plavix or Coumadin, please check with your prescribing doctor for instructions for when to stop them. 7. If you use an inhaler, continue to use it routinely. 8. Nothing to eat or drink (not even water, gum, mints, or hard candy!) AFTER midnight prior to your surgery. 9. Take only medications that you are instructed to on the morning of surgery with a TINY SIP OF WATER. 10. Choose a responsible adult that will be able to drive you home when you are discharged from your hospital stay for your surgery and can stay with you in your home for 24 hours after your procedure. You must NOT drive any vehicle or operate any machinery for 24 hours after surgery. 11. When you dress for your appointment, please wear loose fitting clothing that is appropriate to accommodate your surgical area procedure. BRING WITH YOU ANY DEVICES YOU MAY NEED: MINI hose, ice machine, sling/swath, brace or special shoe, oversized zip-up or button up shirt, CPAP machine if staying overnight. 12. Do NOT wear jewelry, watches, or any piercings or metal for surgery- leave these valuables and money at home. 13. Do NOT wear contact lenses for surgery- glasses are okay if needed. 14. The anesthesiologist will talk with you the day of surgery and will ask you to sign a Consent Form. 15. Refrain from smoking or any type of tobacco use for at least 8 hours and marijuana for 24 hours prior to arrival for your surgery. 16. If a GREEN BLOOD band is given to you, please bring it with you for the day of surgery. 17. Notify your surgeon if you develop any illness before your surgery. 18. If you are staying overnight, please DO NOT BRING your home medications with you. 19. If you have any questions prior to surgery, please call the Preadmission Testing office at [phone], Mon.-Fri. 7 a.m.-3 p.m. Leave a voicemail if needed. Pre-Surgery Instructions: Medication Instructions amLODIPine (NORVASC) 5 mg tablet Continue as prescribed, take morning of procedure BD ALCOHOL SWABS pads, medicated Stop taking 0 days prior to procedure escitalopram (LEXAPRO) 10 mg tablet Stop taking 0 days prior to procedure gelatin, empty no. 00, capsule Stop taking 0 days prior to procedure losartan (COZAAR) 100 mg tablet Continue as prescribed, take morning of procedure magnesium glycinate 100 mg magnesium capsule Stop taking 0 days prior to procedure metoprolol succinate XL (TOPROL XL) 50 mg 24 hr tablet Continue as prescribed, take morning of procedure MONOJECT LUER-LOCK TIP 3 mL syringe- Mounjaro injection Stop taking 1 week prior to surgery ondansetron ODT (ZOFRAN ODT) 4 mg disintegrating tablet Stop taking 0 days prior to procedure ONETOUCH DELICA PLUS LANCET 33 gauge misc Stop taking 0 days prior to procedure ONETOUCH VERIO TEST STRIPS strip Stop taking 0 days prior to procedure viloxazine (QELBREE) 200 mg capsule,extended release 24hr Stop taking 0 days prior to procedure How to Avoid an Infection after Your Surgery Your doctor will give you specific instructions, but remember: -ALWAYS wash hands before caring for your incision. -No picking, scratching, or rubbing your incision. -No creams, lotion, powder, rubbing alcohol or hydrogen peroxide on the incision (can harm the tissue and slow healing). -Your doctor will give you specific instructions for what type of dressing you will need and how often it will need changed for infection purposes. -No tight clothing on incision. -Do not allow anyone to touch your incision unless they are cleaning, checking, or redressing it (be sure they wash their hands first). -No contact of your incision with pets; avoid sleeping with pets. -Take full course of antibiotic if prescribed for you after surgery- do not stop unless directed to by your physician. You may also be given an antibiotic prior to your surgery to help prevent surgical site infections. -Eat a healthy and varied diet including proteins, fruits, and vegetables to help promote wound healing and keep blood sugars under control if you are diabetic. -Smoking slows the healing process by decreasing the amount of oxygen in your blood that is needed for tissue healing. Try to avoid or stop smoking if possible. LOOK at your incision each morning and each night to check the progress of healing. Some soreness, numbness, itching and/or mild bruising around the incision is normal. Call your doctor if you notice any of the following: -Increased redness or hardening around the incision area. -Increased pain at the incision site. -Incision feels hot to the touch. -Swelling or pulling apart of the incision edges. -Yellow or green drainage or foul odor coming from the incision. -Bleeding from the incision (apply pressure as needed). -Fever higher than 101 degrees Fahrenheit for more than 4 hours. SHOWERING: Your doctor will give you specific instructions, but remember: -Be careful getting into and out of the shower. -Showers should be quick (5 minutes or less). -Use a clean washcloth to gently wash your incision with soap and water and pat the area dry with a clean towel. -No re-using wash cloths or towels; get a fresh one to clean your incision. -Do not soak in the bathtub, go swimming or use a hot tub (Jacuzzi), or perform activities where your incision is submerged in water or exposed to any fluids or substances until instructed by your doctor. -If your have the sticky strips (steri-strips) over the incision, it is OK to shower with them. Do not remove them. Let them fall off on their own. If you have a question, call your doctor s office. Go to the follow-up appointment with your doctor. [facility] 07-31-2024 Nurse Note Hibiclens and surgical instructions reviewed. Patient verbalized understanding. [facility] 07-31-2024 Nurse Note Lisette at Dr Carreon's office notified of need for cardiac clearance once patient has her ECHO completed. [facility] 07-31-2024 History of Present illness Narrative Images from the original note were not included. Subjective Patient ID: Cindy Dumont is a 43 y.o. female who presents for No chief complaint on file.. HPI Established patient returns to clinic for consent and instructions regarding upcoming left foot surgery. Patient has been dealing with painful forefoot deformities for many years. She has failed extensive conservative care measures and after discussing risks and benefits she elects to move forward with surgical intervention. Review of Systems Constitutional: Negative for activity change and appetite change. Respiratory: Negative for chest tightness and shortness of breath. Cardiovascular: Negative for chest pain. Musculoskeletal: Positive for arthralgias and gait problem. Skin: Negative for color change and wound. Neurological: Negative for weakness and numbness. Psychiatric/Behavioral: Negative for agitation and behavioral problems. Hematological: Does not bruise/bleed easily. Endocrine: Negative for cold intolerance and heat intolerance. Allergic/Immunologic: Negative for immunocompromised state. Past medical History Past Medical History: Diagnosis Date Encounter for gynecological examination (general) (routine) without abnormal findings Fibrocystic breast 05/2022 Frequent headaches Hirsutism Hypertension (CMS/HCC) Labial cyst Menorrhagia Migraine Chronic Morbid obesity with BMI of 45.0-49.9, adult (CMS/[facility]) PCOS (polycystic ovarian syndrome) Pre-diabetes Rectal bleeding Off and on since 2018 Weight gain Medications Current Outpatient Medications: Alcohol Swabs (B-D SINGLE USE SWABS REGULAR) pads, , Disp: , Rfl: amLODIPine (Norvasc) 10 MG tablet, Take 10 mg by mouth in the morning., Disp: , Rfl: Blood Glucose Monitoring Suppl (D-Care Glucometer) w/Device kit, 1 kit Daily Use four times daily to check FSBS. In the morning prior to breakfast & 1 hour after each meal for a total of 4times daily., Disp: 1 kit, Rfl: 0 escitalopram (Lexapro) 10 MG tablet, Take 10 mg by mouth in the morning., Disp: , Rfl: glucose blood (OneTouch Verio) test strip, Use as instructed, Disp: 100 each, Rfl: 3 Lancets (OneTouch Delica Plus [id number]) mis, , Disp: , Rfl: losartan (Cozaar) 100 MG tablet, Take 100 mg by mouth Daily, Disp: , Rfl: metoprolol succinate XL (Toprol-XL) 50 MG 24 hr tablet, Take 50 mg by mouth 1 (one) time each day at the same time, Disp: , Rfl: MONOJECT 3CC SYRINGE 3 ML misc, , Disp: , Rfl: Mounjaro 12.5 MG/0.5ML solution auto-injector, inject 0.5 milliliters UNDER THE SKIN ONCE WEEKLY, Disp: 2 mL, Rfl: 3 ondansetron ODT (Zofran-ODT) 4 MG disintegrating tablet, DISSOLVE ONE TABLET UNDER THE TONGUE EVERY 6 HOURS NEEDED FOR NAUSEA AND VOMITING, Disp: 30 tablet, Rfl: 2 Viloxazine HCl ER (Qelbree) 200 MG capsule sustained-release 24 hr, Take 200 mg by mouth in the morning., Disp: , Rfl: Allergies Topiramate Past Surgical History Past Surgical History: Procedure Laterality Date APPENDECTOMY 2006 BREAST BIOPSY SECTION, LOW TRANSVERSE 04/2019 SECTION, LOW TRANSVERSE 05/07/2017 CHOLECYSTECTOMY 2004 COSMETIC SURGERY 01/25/24 ENDOMETRIAL ABLATION 12/22/2023 IUD INSERTION 2010 Mirena PAP SMEAR 07/07/2021 negative TUBAL LIGATION US PELVIC COMPLETE 11/2004 PCOS Family History Family History Problem Relation Name Age of Onset Hypertension Maternal Grandfather . Heart disease Maternal Grandfather . Stroke Maternal Grandfather . Cancer Maternal Grandfather . Drug abuse Maternal Grandfather . Drug abuse Father Tyrese Alcohol abuse Father Tyrese Depression Father Tyrese Diabetes Paternal Grandfather . Asthma Mother Kayla Vision loss Maternal Grandmother . Thyroid disease Maternal Grandmother . Objective Physical Exam Constitutional: Appearance: She is obese. HENT: Head: Normocephalic and atraumatic. Cardiovascular: Pulses: Normal pulses. Pulmonary: Effort: Pulmonary effort is normal. No respiratory distress. Abdominal: Palpations: There is no mass. Musculoskeletal: Cervical back: No rigidity. Comments: Weightbearing examination reveals pes planus morphology. She is able to perform a double heel rise test which irritates the forefoot. Left foot: Isolated and maximal tenderness over the medial eminence of the 1st MTP. There is also tenderness to palpation over the lateral eminence of the 5th MTP. Increased excursion of the 1st ray. Range of motion of the 1st MTP smooth but painful. Lateral tethering noted with range of motion. There is medial deviation of the 2nd toe at the MTP and tenderness to palpation of the plantar plate of the 2nd MTP. No tenderness to the 3rd or 4th MTPs. Negative Dionte's test although this maneuver is quite painful at the 2nd MTP. Muscle strength 5/5 for all quadrants. Ankle dorsiflexion 0 degrees with the knee extended, flexed. Skin: Capillary Refill: Capillary refill takes less than 2 seconds. Findings: No lesion or rash. Neurological: Mental Status: She is alert. Comments: No loss of protective sensation, gross sensation intact. Psychiatric: Mood and Affect: Mood normal. Behavior: Behavior normal. Assessment/Plan ICD-10-CM 1. Hallux valgus of left foot M20.12 2. Instability of left foot joint M25.375 3. Tailor's bunion of left foot M21.622 4. Acquired deformity of left toe M20.62 5. 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 M21.962 6. Equinus contracture of left ankle M24.572 Patient was examined and evaluated. I reviewed all previous, relevant imaging and lab studies. Due to the patient's continued forefoot deformity and significant pain with disability and interference of the activities of daily living I have recommended surgical intervention. I discussed reasonable risks and complications of the planned procedures including but not limited to bleeding, infection, numbness, swelling, malunion, nonunion, hardware failure, need for further surgery, DVT, PE, loss of limb and loss of life. I discussed the recovery period for the planned procedures which will include 1st TMT arthrodesis with modified Lazaro bunionectomy, shortening osteotomy of the 2nd metatarsal with direct versus indirect plantar plate repair of the 2nd MTP, tailor's bunionectomy with osteotomy of the 5th metatarsal and possible gastrocnemius recession of the left lower extremity. Total recovery time is expected to be around 3 months. After discussing all the risks and benefits of surgical intervention she elects to proceed. We will follow up 2 weeks postoperatively. Anticipate 325 mg aspirin once daily for DVT prophylaxis postoperatively. This note was created with the assistance of a speech recognition program. While intending to generate a timely document that accurately reflects the content of the visit, no guarantee can be provided that every grammatical or spelling mistake has been or will be identified or corrected. Thank you for your understanding. Georgi Carreon DPM documented in this encounter [facility] 07-22-2024 History of Present illness Narrative Reason for Appointment: Patient ID: Cindy Dumont is a 43 y.o. female who presents for Well Women Visit Patient presents today for Annual Exam. MEDICATIONS Current Outpatient Medications Medication Instructions Alcohol Swabs (B-D SINGLE USE SWABS REGULAR) pads amLODIPine (NORVASC) 10 mg, Daily RT Blood Glucose Monitoring Suppl (D-Avito[employer]ru Glucometer) w/Device kit 1 kit, Does not apply, Daily, Use four times daily to check FSBS. In the morning prior to breakfast & 1 hour after each meal for a total of 4times daily. escitalopram (LEXAPRO) 10 mg, Daily RT glucose blood (OneTouch Verio) test strip Use as instructed Lancets (OneTouch Delica Plus [id number]) misc losartan (COZAAR) 100 mg, Daily metoprolol succinate XL (TOPROL-XL) 50 mg, Every 24 hours MONOJECT 3CC SYRINGE 3 ML misc Mounjaro 12.5 MG/0.5ML solution auto-injector inject 0.5 milliliters UNDER THE SKIN ONCE WEEKLY ondansetron ODT (Zofran-ODT) 4 MG disintegrating tablet DISSOLVE ONE TABLET UNDER THE TONGUE EVERY 6 HOURS NEEDED FOR NAUSEA AND VOMITING Qelbree 200 mg, Daily RT ALLERGIES Allergies Allergen Reactions Topiramate Swelling PROBLEMS [...] (routine) without abnormal findings Fibrocystic breast 05/2022 Hirsutism Hypertension (CMS/HCC) Migraine Morbid obesity with BMI of 45.0-49.9, adult (CMS/HCC) PCOS (polycystic ovarian syndrome) Pre-diabetes Rectal bleeding Off and on since 2018 HISTORY PAST MEDICAL HISTORY SOCIAL HISTORY Past Medical History: Diagnosis Date Encounter for gynecological examination (general) (routine) without abnormal findings Fibrocystic breast 05/2022 Frequent headaches Hirsutism Hypertension (CMS/HCC) Labial cyst Menorrhagia Migraine Chronic Morbid obesity with BMI of 45.0-49.9, [...] Name Age of Onset Hypertension Maternal Grandfather . Heart disease Maternal Grandfather . Stroke Maternal Grandfather . Cancer Maternal Grandfather . Drug abuse Maternal Grandfather . Drug abuse Father Tyrese Alcohol abuse Father Tyrese Depression Father Tyrese Diabetes Paternal Grandfather . Asthma Mother Kayla Vision loss Maternal Grandmother . Thyroid disease Maternal Grandmother . SURGICAL HISTORY Past Surgical History: Procedure Laterality Date APPENDECTOMY 2006 BREAST BIOPSY SECTION, LOW TRANSVERSE 04/2019 SECTION, LOW TRANSVERSE 05/07/2017 CHOLECYSTECTOMY 2005 COSMETIC SURGERY 01/25/24 ENDOMETRIAL ABLATION 12/22/2023 IUD INSERTION 2010 Mirena [...] appearance. She is well-developed. Genitourinary: Vulva normal. Breasts: Breasts are soft. Right: Normal. Left: [...] nursing note reviewed. Exam conducted with a windchill administrator present. Vitals: Estimated body mass index is 34.11 kg/m as calculated from the following: Height as of 07/16/24: 5' 5 . Weight as of this encounter: 205 lb. BP: 128/82 Patient's last menstrual period was 06/24/2024. ASSESSMENT & PLAN ICD-10-CM 1. Well woman exam with routine gynecological exam Z01.419 THIN PREP TIS PAP AND HR HPV DNA POCT , urine manually resulted POCT urinalysis dipstick manually resulted 2. Breast cancer screening by mammogram Z12.31 Bilateral screening mammogram Bilateral screening mammogram Annual: Patient presents today for an annual exam. Patient states she is doing well and has no complaints. Pap was obtained without difficulty and patient given mammogram order to have scheduled/obtained. Orders Placed This Encounter Procedures Bilateral screening mammogram POCT , urine manually resulted POCT urinalysis dipstick manually resulted Follow Up: Patient is to return in one year for annual unless needed otherwise. Documented by Natalia Choi LPN on behalf of: Sanjeev Lopez DO documented in this encounter [facility] 07-16-2024 History of Present illness Narrative Images from the original note were not included. Subjective Patient ID: Cindy Dumont is a 43 y.o. female who presents for Foot Pain (PT is here today for BL foot pain, Lt is worse. Painful bunion and tailors bunion area. Painful for her constantly, she purchased new shoes./SS: 9.5-10). HPI This is an established patient of the practice who presents to clinic with concern of foot pain bilaterally. Patient has been dealing with forefoot pain for many years and has seen Dr. Tee Carreon for this issue previously. She states that her left foot seems to bother her the most. Pain described as sharp, aching in nature and located along the bunion and 5th metatarsal head region as well as the forefoot. She has purchased wider shoes that have a deeper toe box to try and alleviate pressure and pain but she continues to have significant pain on a daily basis. At this point she has failed extensive conservative care measures and would like to discuss surgical options. Review of Systems Constitutional: Negative for activity change and appetite change. Respiratory: Negative for chest tightness and shortness of breath. Cardiovascular: Negative for chest pain. Musculoskeletal: Positive for arthralgias and gait problem. Skin: Negative for color change and wound. Neurological: Negative for weakness and numbness. Psychiatric/Behavioral: Negative for agitation and behavioral problems. Hematological: Does not bruise/bleed easily. Endocrine: Negative for cold intolerance and heat intolerance. Allergic/Immunologic: Negative for immunocompromised state. Past medical History Past Medical History: Diagnosis Date Encounter for gynecological examination (general) (routine) without abnormal findings Fibrocystic breast 05/2022 Frequent headaches Hirsutism Hypertension (CMS/HCC) Labial cyst Menorrhagia Migraine Chronic Morbid obesity with BMI of 45.0-49.9, adult (CMS/[facility]) PCOS (polycystic ovarian syndrome) Pre-diabetes Rectal bleeding Off and on since 2018 Weight gain Medications Current Outpatient Medications: Alcohol Swabs (B-D SINGLE USE SWABS REGULAR) pads, , Disp: , Rfl: Blood Glucose Monitoring Suppl (D-Care Glucometer) w/Device kit, 1 kit Daily Use four times daily to check FSBS. In the morning prior to breakfast & 1 hour after each meal for a total of 4times daily., Disp: 1 kit, Rfl: 0 glucose blood (OneTouch Verio) test strip, Use as instructed, Disp: 100 each, Rfl: 3 Lancets (OneTouch Delica Plus [id number]) misc, , Disp: , Rfl: MONOJECT 3CC SYRINGE 3 ML misc, , Disp: , Rfl: Mounjaro 12.5 MG/0.5ML solution auto-injector, inject 0.5 milliliters UNDER THE SKIN ONCE WEEKLY, Disp: 2 mL, Rfl: 3 ondansetron ODT (Zofran-ODT) 4 MG disintegrating tablet, DISSOLVE ONE TABLET UNDER THE TONGUE EVERY 6 HOURS NEEDED FOR NAUSEA AND VOMITING, Disp: 30 tablet, Rfl: 2 Allergies Topiramate Past Surgical History Past Surgical History: Procedure Laterality Date APPENDECTOMY 2006 BREAST BIOPSY SECTION, LOW TRANSVERSE 04/2019 SECTION, LOW TRANSVERSE 05/07/2017 CHOLECYSTECTOMY 2004 COSMETIC SURGERY 01/25/24 ENDOMETRIAL ABLATION 12/22/2023 IUD INSERTION 2010 Mirena PAP SMEAR 07/07/2021 negative TUBAL LIGATION US PELVIC COMPLETE 11/2004 PCOS Family History Family History Problem Relation Name Age of Onset Hypertension Maternal Grandfather . Heart disease Maternal Grandfather . Stroke Maternal Grandfather . Cancer Maternal Grandfather . Drug abuse Maternal Grandfather . Drug abuse Father Tyrese Alcohol abuse Father Tyrese Depression Father Tyrese Diabetes Paternal Grandfather . Asthma Mother Kayla Vision loss Maternal Grandmother . Thyroid disease Maternal Grandmother . Objective Physical Exam Constitutional: Appearance: She is obese. HENT: Head: Normocephalic and atraumatic. Cardiovascular: Pulses: Normal pulses. Pulmonary: Effort: Pulmonary effort is normal. No respiratory distress. Abdominal: Palpations: There is no mass. Musculoskeletal: Cervical back: No rigidity. Comments: Weightbearing examination reveals pes planus morphology. She is able to perform a double heel rise test which irritates the forefoot. Left foot: Isolated and maximal tenderness over the medial eminence of the 1st MTP. There is also tenderness to palpation over the lateral eminence of the 5th MTP. Increased excursion of the 1st ray. Range of motion of the 1st MTP smooth but painful. Lateral tethering noted with range of motion. There is medial deviation of the 2nd toe at the MTP and tenderness to palpation of the plantar plate of the 2nd MTP. No tenderness to the 3rd or 4th MTPs. Negative Dionte's test although this maneuver is quite painful at the 2nd MTP. Muscle strength 5/5 for all quadrants. Ankle dorsiflexion 0 degrees with the knee extended, flexed. Skin: Capillary Refill: Capillary refill takes less than 2 seconds. Findings: No lesion or rash. Neurological: Mental Status: She is alert. Comments: No loss of protective sensation, gross sensation intact. Psychiatric: Mood and Affect: Mood normal. Behavior: Behavior normal. XR foot 3+ views left Imaging Result: AP, medial oblique, lateral views are weight-bearing. Decreased calcaneal inclination. Enthesophyte at the insertion of the Achilles tendon and plantar fascia. Increased IM 1-2 angle with lateral deviation of the hallux, lateral subluxation of the sesamoids. Enlarged 5th metatarsal with lateral bowing. There is elevation of the 1st ray. Enlargement of the anterior process of the calcaneus and there appears to be articulation between the anterior process of the calcaneus and the navicular consistent with a NC bar. Assessment/Plan ICD-10-CM 1. Hallux valgus of left foot M20.12 XR foot 3+ views left 2. Instability of left foot joint M25.375 3. Tailor's bunion of left foot M21.622 XR foot 3+ views left 4. Acquired deformity of left toe M20.62 XR foot 3+ views left 5. 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 M21.962 XR foot 3+ views left 6. Equinus contracture of left ankle M24.572 7. Left foot pain M79.672 XR foot 3+ views left 8. Vitamin D insufficiency E55.9 Vitamin D 1,25 dihydroxy Patient was examined and evaluated. 3 views of the left foot were taken in office today and I discussed my findings. Patient has a lot of forefoot discomfort caused by 1st ray instability as well as hallux valgus deformity, prominent 5th metatarsal head as well as predislocation syndrome of the 2nd MTP. I discussed treatment options from both the conservative and surgical treatment approach. At this time she has failed extensive conservative care measures including orthotics, anti-inflammatories, physical therapy as well as shoe gear modifications and padding options. I discussed that the conservative measures will not reverse the bunion deformity but but the goal of conservative care is to reduce symptomatology and maximize function. I also did discuss surgical options. At this time she has failed extensive conservative measures and after discussing risks and benefits would like to move forward with surgical treatment. Anticipate 1st TMT arthrodesis with modified Lazaro bunionectomy, shortening osteotomy of the 2nd metatarsal with direct versus indirect plantar plate repair, 5th metatarsal osteotomy and gastrocnemius recession of the left lower extremity. Vitamin-D level ordered in anticipation of osseous procedures. Follow up for consent and instructions. This note was created with the assistance of a speech recognition program. While intending to generate a timely document that accurately reflects the content of the visit, no guarantee can be provided that every grammatical or spelling mistake has been or will be identified or corrected. Thank you for your understanding. Georgi Carreon DPM documented in this encounter [facility] 07-03-2024 Note [place] Cardiology - [facility] Subjective Karuna Dumont is a 43 y.o. year old female New patient being seen for hypertension per patient hypertension is a sudden onset which started in April. Migraines are becoming more frequent. Increase heart rate with and without activity. Patient takes a compound medication for her Thyroid. Patient Active Problem List Diagnosis Attention deficit hyperactivity disorder (ADHD), predominantly inattentive type Breast pain DDD (degenerative disc disease), lumbar Decreased movements in third trimester Fibrocystic breast changes Frequent headaches Generalized anxiety disorder Hallux valgus (acquired), left foot Hirsutism History of multiple miscarriages History of spontaneous History of PCOS History of delivery Insulin controlled gestational diabetes mellitus (GDM) in second trimester Insulin resistance Irritable bowel syndrome Labial cyst Mallet deformity of right ring finger Menorrhagia Migraines Myelopathy (CMS/HCC) Neurogenic bladder BMI 45.0-49.9, adult (CMS/HCC) Panniculitis affecting back Polycystic ovarian syndrome Psychophysiological insomnia Vitamin B12 deficiency Weight gain Family History Problem Relation Name Age of Onset Heart murmur Mother No Known Problems Father Social History Tobacco Use Smoking status: Never Smokeless tobacco: Never Substance Use Topics Alcohol use: Never HPI Karuna is seen as a new patient referred from Dr Winter's office for uncontrolled hypertension. She is a 43-year-old woman with history of ADHD and was on Adderall that was recently stopped. She has history of obesity and underwent pending colectomy surgery in January 2024. She noted in April 2024 that her blood pressure was elevated. This happened to coincide with symptoms of not feeling well and worsening headaches and migraine. She was started on metoprolol succinate 50 mg daily and losartan which was increased from 50 to 100 mg daily. She noticed that her blood pressure is still not controlled. Today in the office her blood pressure is 156/109 and this is similar to her readings at home. Outside of worsening headaches and migraine she reports palpitations happening once a week. But she has no chest pain, shortness of breath or leg edema. Review of Systems Neurological: Positive for headaches (Migrains are becoming more frequent.). Psychiatric/Behavioral: The patient is nervous/anxious. Objective Visit Vitals BP (!) 156/109 (BP Location: Right arm, Patient Position: Sitting) Pulse 72 Ht 1.651 m (5' 5 ) Wt 86.6 kg (191 lb) SpO2 100% BMI 31.78 kg/m??? Smoking Status Never BSA 1.99 m??? Physical Exam Constitutional: Appearance: She is well-developed. She is not ill-appearing. HENT: Head: Normocephalic and atraumatic. Nose: Nose normal. Eyes: General: No scleral icterus. Pupils: Pupils are equal, round, and reactive to light. Neck: Thyroid: No thyromegaly. Vascular: No JVD. Cardiovascular: Rate and Rhythm: Normal rate and regular rhythm. Pulses: Radial pulses are 2+ on the right side and 2+ on the left side. Heart sounds: Normal heart sounds. No murmur heard. No friction rub. No gallop. Pulmonary: Effort: Pulmonary effort is normal. No respiratory distress. Breath sounds: Normal breath sounds. No wheezing or rales. Chest: Chest wall: No tenderness. Abdominal: General: Bowel sounds are normal. There is no distension. Palpations: Abdomen is soft. Tenderness: There is no abdominal tenderness. Musculoskeletal: General: No swelling. Cervical back: Neck supple. Skin: General: Skin is warm and dry. Neurological: General: No focal deficit present. Mental Status: She is alert and oriented to person, place, and time. Psychiatric: Mood and Affect: Mood normal. Behavior: Behavior is cooperative. Judgment: Judgment normal. Allergies Allergies Allergen Reactions Adhesive Rash Pt states allergic to paper tape Topiramate Other, Swelling and Unknown Medications Current Outpatient Medications: mkcdstxwab-uepezbxgoennc-nzcs (Fioricet) 50-300-40 mg capsule, Take 50 capsules by mouth every 4 (four) hours if needed., Disp: , Rfl: escitalopram (Lexapro) 10 mg tablet, Take 10 mg by mouth in the morning., Disp: , Rfl: losartan (Cozaar) 100 mg tablet, Take 100 mg by mouth in the morning., Disp: , Rfl: magnesium glycinate 100 mg magnesium capsule, Take 200 mg by mouth in the morning., Disp: , Rfl: metoprolol succinate XL (Toprol-XL) 50 mg 24 hr tablet, Take 50 mg by mouth in the morning., Disp: , Rfl: Mounjaro 12.5 mg/0.5 mL pen injector, 12.5 Units by subcutaneous (via wearable injector) route 1 (one) time per week., Disp: , Rfl: vvzzlhekyqsl-roz-efin-FA-vit K 18 mg iron-400 mcg-25 mcg tablet, Take by mouth., Disp: , Rfl: ondansetron ODT (Zofran-ODT) 4 mg disintegrating tablet, Take 4 mg by mouth every 8 (eight) (more content not included)... [facility] 06-28-2024 Note Education Materials Neurology Migraine Headache A migraine headache is an intense pulsing or throbbing pain on one or both sides of the head. Migraine headaches may also cause other symptoms, such as nausea, vomiting, and sensitivity to light and noise. A migraine headache can last from 4 hours to 3 days. Talk with your health care provider about what things may bring on (trigger) your migraine headaches. What are the causes? The exact cause is not known. However, a migraine may be caused when nerves in the brain get irritated and release chemicals that cause blood vessels to become inflamed. This inflammation causes pain. Migraines may be triggered or caused by: ? Smoking. ? Medicines, such as: ? Nitroglycerin, which is used to treat chest pain. ? control pills. ? Estrogen. ? Certain blood pressure medicines. ? Foods or drinks that contain nitrates, glutamate, aspartame, MSG, or tyramine. ? Certain foods or drinks, such as aged cheeses, chocolate, alcohol, or caffeine. ? Doing physical activity that is very hard. Other triggers may include: ? Menstruation. ? . ? Hunger. ? Stress. ? Getting too much or too little sleep. ? Weather changes. ? Tiredness (fatigue). What increases the risk? The following factors may make you more likely to have migraine headaches: ? Being between the ages of 25-55 years old. ? Being female. ? Having a family history of migraine headaches. ? Being . ? Having a mental health condition, such as depression or anxiety. ? Being obese. What are the signs or symptoms? The main symptom of this condition is pulsing or throbbing pain. This pain may: ? Happen in any area of the head, such as on one or both sides. ? Make it hard to do daily activities. ? Get worse with physical activity. ? Get worse around bright lights, loud noises, or smells. Other symptoms may include: ? Nausea. ? Vomiting. ? Dizziness. Before a migraine headache starts, you may get warning signs (an aura). An aura may include: ? Seeing flashing lights or having blind spots. ? Seeing bright spots, halos, or zigzag lines. ? Having tunnel vision or blurred vision. ? Having numbness or a tingling feeling. ? Having trouble talking. ? Having muscle weakness. After a migraine ends, you may have symptoms. These may include: ? Feeling tired. ? Trouble concentrating. How is this diagnosed? A migraine headache can be diagnosed based on: ? Your symptoms. ? A physical exam. ? Tests, such as: ? A CT scan or an MRI of the head. These tests can help rule out other causes of headaches. ? Taking fluid from the spine (lumbar puncture) to examine it (cerebrospinal fluid analysis, or CSF analysis). How is this treated? This condition may be treated with medicines that: ? Relieve pain and nausea. ? Prevent migraines. Treatment may also include: ? Acupuncture. ? Lifestyle changes like avoiding foods that trigger migraine headaches. ? Learning ways to control your body (biofeedback). ? Talk therapy to help you know and deal with negative thoughts (cognitive behavioral therapy). Follow these instructions at home: Medicines ? Take rukb-jur-gqbcdvh and prescription medicines only as told by your provider. ? Ask your provider if the medicine prescribed to you: ? Requires you to avoid driving or using machinery. ? Can cause constipation. You may need to take these actions to prevent or treat constipation: ? Drink enough fluid to keep your pee (urine) pale yellow. ? Take dsbw-tgh-dkxqpit or prescription medicines. ? Eat foods that are high in fiber, such as beans, whole grains, and fresh fruits and vegetables. ? Limit foods that are high in fat and processed sugars, such as fried or sweet foods. Lifestyle ? Do not drink alcohol. ? Do not use any products that contain nicotine or tobacco. These products include cigarettes, chewing tobacco, and vaping devices, such as e-cigarettes. If you need help quitting, ask your provider. ? Get 7?9 hours of sleep each night, or the amount recommended by your provider. ? Find ways to manage stress, such as meditation, deep breathing, or yoga. ? Try to exercise regularly. This can help lessen how bad and how often your migraines occur. General instructions ? Keep a journal to find out what triggers your migraines, so you can avoid those things. For example, write down: ? What you eat and drink. ? How much sleep you get. ? Any change to your diet or medicines. ? If you have a migraine headache: ? Avoid things that make your symptoms worse, such as bright lights. ? Lie down in a dark, quiet room. ? Do not drive or use machinery. ? Ask your provider what activities are safe for you while you have symptoms. ? Keep all follow-up visits. Your provider will monitor your symptoms and recommend any further treatment. Where to find more information ? Coalition for Headache and M (more content not included)... [facility] 05-17-2024 Evaluation note Diagnosis Onset Date Resolution Adult ADHD acute May 17, 2024 10:57am Benign essential HTN acute Febr 2024 10:57am [facility] Work Phone: 1(801) 743-581701-09-2025 Evaluation note* Diagnosis Onset Date Resolution Status Admit Date Adult ADHD acute April 11 9:46am Benign essential HTN acute [place] 2024 9:46am Wellness examination acute [place]2024 9:46am [facility] Work Phone: 1(786) 547-495512-20-2024 History of Present illness Narrative* Caitlyn Logan RN - 03/22/2024 1:59 PM EST [facility] received referral for BRCA testing. Referral faxed to genetics. [place] encounterKath[place] [address]-25[place]2024 History of Present illness Narrative* Monique Cantrell, CONTROL VALVE MECHANIC - 02/26/2024 10:00 AM EST Reason for Appointment: Patient ID: Cindy Dumont [...] mg, Daily RT Blood Glucose Monitoring Suppl ([employer] Glucometer) w/Device kit 1 kit, Does not apply, Daily, Use four times daily to check FSBS. In the morning prior to breakfast & 1 hour after each meal for a total of 4times daily. Lancets (Agrar33Touch Delica Plus Kjpxui47E) misc MONOJECT 3CC SYRINGE 3 ML misc Mounjaro 10 MG/0.5ML solution auto-injector INJECT 0.5 MLS SUBCUTANEOUSLY ONCE WEEKLY Agrar33Touch Verio test strip Qelbree 200 mg, Nightly [...] Name Age of Onset Hypertension Maternal Grandfather [place] Heart disease Maternal Grandfather [place] Stroke Maternal Grandfather [place] Cancer Maternal Grandfather [place] Drug abuse Maternal Grandfather [place] Drug abuse Father Tyrese Diabetes Paternal Grandfather [...] nursing note reviewed. Exam conducted with a windchill administrator present. Vitals: Estimated body mass index is [...] of: Sanjeev Lopez DO documented in this encounterNortheast Missouri Rural Health [id number] History of Present illness Narrative* Alfonso Liang MD - 01/26/2024 5:57 PM EDT 01/26/2024 6:12 PM Opened this encounter to order Combes but talked to patient's pharmacy that it was an insurance issue and they are going to fulfill the prescription now. No new orders were placed. Dr. Price made aware. ALFONSO LIANG MD PGY4 Gen Surg Residnet documented in this encounterMemorial Health System10-13-2024 NoteEducation Materials Neurology Migraine Headache A migraine headache is a very strong throbbing pain on one or both sides of your head. This type ofheadache can also cause other symptoms. It can [...] these instructions at home: Medicines ? Take fsad-efi-cfrprgk and prescription medicines only as told by [...] or tobacco. If you need help quitting, askyour doctor. ? Get 7?9 hours of sleep [...] Headache and Migraine Patients (CHAMP): headachemigraine.org ? [place] Migraine Foundation: americanmigrainefoundation.org ? National Headache Foundation: [...] your health care p (more content not included)...[facility] [id number] History of Present illness Narrative* Tatum Atkinson LPN - 01/03/2024 10:50 AM EDT * Monique Cantrell LPN - 01/03/2024 10:50 AM EDT Reason for Appointment: Patient ID: Cindy Dumont [...] Oral, Daily RT Blood Glucose Monitoring Suppl ([employer] Glucometer) w/Device kit 1 kit, Does not apply, Daily, Use four times daily to check FSBS. In the morning prior to breakfast & 1 hour after each meal for a total of 4times daily. diazePAM (Valium) 10 MG tablet TAKE 1 TABLET BY MOUTH PREOP Lancets ([employer] Delica Plus Oehmal51W) misc MONOJECT 3CC SYRINGE 3 ML misc nystatin (Mycostatin) cream Topical, 2 times daily, Dispense cream that does NOT have perfumes added. [employer] Verio test strip Qelbree 200 mg, Oral, [...] Name Age of Onset Hypertension Maternal Grandfather [place] Heart disease Maternal Grandfather [place] Stroke Maternal Grandfather [place] Cancer Maternal Grandfather [place] Drug abuse Maternal Grandfather [place] Drug abuse Father Tyrese Diabetes Paternal Grandfather [...] nursing note reviewed. Exam conducted with a windchill administrator present. Vitals: Estimated body mass index is 33.75 kg/m as calculated from the following: Height as of 5/1/24: 5' 5 . Weight as of this [...] of: Sanjeev Lopez DO documented in this encounterNortheast Missouri Rural Health [id number] History of Present illness Narrative* Tracie Cunningham - 12/06/2023 11:30 AM EDT Reason for Appointment: Patient ID: Cindy Dumont is a 43 y.o. female who presents for Endometrial Biopsy and Pre-op Visit Patient presents today for Pre Op/Endometrial Biopsy appointment. Patient is scheduled to undergo Endometrial Ablation with Mariel on 12/22/[address] Lopez at [facility]. MEDICATIONS Current Outpatient Medications Medication Instructions Alcohol [...] Name Age of Onset Hypertension Maternal Grandfather [place] Heart disease Maternal Grandfather [place] Stroke Maternal Grandfather [place] Cancer Maternal Grandfather [place] Drug abuse Maternal Grandfather [place] Drug abuse Father Tyrese Diabetes Paternal Grandfather [...] nursing note reviewed. Exam conducted with a windchill administrator present. Vitals: Estimated body mass index is [...] reviewed, and patient is to proceed to [facility] OR. Follow Up: Patient is to follow up between 1-2 weeks post op to assess proper healing and recovery from procedure. Documented by Monique Cantrell LPN on behalf of: Sanjeev Lopez DO documented in this encounterNortheast Missouri Rural Health [id number] History of Present illness Narrative* Monique Cantrell LPN - 11/29/2023 1:50 PM EDT Reason for Appointment: Patient ID: Cindy Dumont is a 42 y.o. female who presents for discuss procedure (Pt wants to discuss a hysterectomy vs. An ablation ) Patient presents today for Consult appointment. MEDICATIONS Current Outpatient Medications Medication Instructions Alcohol Swabs (Alcohol Prep Pad) 70 % pads 1 Pad, Topical, 2 times daily, Use twice daily to check FSBS. Blood Glucose Monitoring Suppl ([employer] Glucometer) w/Device kit 1 kit, Does not [...] Name Age of Onset Hypertension Maternal Grandfather [place] Heart disease Maternal Grandfather [place] Stroke Maternal Grandfather [place] Cancer Maternal Grandfather [place] Drug abuse Maternal Grandfather [place] Drug abuse Father Tyrese Diabetes Paternal Grandfather . SURGICAL HISTORY Past Surgical History: Procedure Laterality Date APPENDECTOMY 2006 SECTION, LOW TRANSVERSE 04/2019 CHOLECYSTECTOMY 2005 IUD [...] nursing note reviewed. Exam conducted with a windchill administrator present. Vitals: Estimated body mass index is [...] of: Sanjeev Lopez DO documented in this encounterNortheast Missouri Rural Health [id number] NotePatient Education Materials Follows: Hypertension, Adult High blood pressure (hypertension) [...] are some conditions that result in high bloodpressure. What increases the risk? Certain factors may make you more likely to develop high blood pressure. Some of these risk factorsare under your control, including: ? Smoking. ? [...] on the floor. The cuff of the bloodpressure monitor will be placed directly against the [...] of wine (148 mL (more content not included)...[facility] [id number] History of Present illness Narrative* Rohit Metzger MD - 06/12/2023 10:05 AM EDT 06/12/2023 Chief Complaint: Chief Complaint Patient presents [...] take another few months to subside. Recommended cnpt-byz-bdptqnk pain relievers as needed. She is content [...] of the aforementioned history prepared by the [place] practice provider, and I personally performed the [...] has any severe symptoms. documented in this encounterMemorial Health System02-13-2024 History of Present illness Narrative* Rohit Metzger MD - 05/16/2023 1:45 PM EST [facility] Chief Complaint: [...] as a new patient for evaluation of herright ring finger. She states that on February 13, 2023, she was putting towels in her washer when I tell got caught around her right ring finger causing to twist and she heard a snap. She initially followed up with [facility] Orthopedics and was diagnosed with right [...] and intact without signs of erythema or ecchymosis.There is mild swelling noted over the right [...] External notes reviewed: I reviewed notes from [facility] orthopaedics. Review of test/study reports: I reviewed an x-ray obtained of the right ring finger. There were no acute osseous abnormality suchas fracture dislocation. My personal interpretation of tests: I personally viewed and interpreted X-rays from [facility] as above. Xrays done in office today: None. Assessment: 1. [facility] [place], [place] 2. Finger injury, right, initial encounter - [facility] [place], [place] Plan: I discussed treatment options with [...] progress with her flexion. documented in this encounterMount Ascutney HospitalEmbarkly Veterans Affairs Medical [id number] Evaluation note* Encounter Date Diagnosis Assessment Notes Treatment Notes Treatment Clinical Notes May, Adult ADHD (attentio n deficit hyperactivity disorder) (ICD-10 - F90.9) [facility] Other 02-05-2024 History of Present illness Narrative* CAIT Schultz - 05/08/2023 1:30 PM EST Images from the original note were not included. [facility] [address] [place] [id number] * CHART NOTE ? 05/08/2023 Patient: Karuna Dumont 1980 [id number] Provider: Jennie Colon CNP CHIEF COMPLAINT Low back pain HISTORY OF PRESENT ILLNESS Karuna Dumont is a new patient who presents for evaluation of low back pain that has been intermittent since 2021, but became more consistent in February of 2023. Cindy reports a constant ache that becomes stabbing with exertion in the bilateral low back. She advises she has pain that radiatesinto the posterior LLE to the heel with intermittent pain radiating into the posterior RLE as far as the knee. Her pain is exacerbated by everything and alleviated by laying flat and not being touched. She has also tried flexeril and advil. Cindy also admits to intermittent urinary incontinence that began in February. Onset: February 2023 Location: Lumbar - bilateral L4-5 Radiation: Posterior left leg down to heel, posterior right leg intermittent to knee Duration Constant Character: Achy, stabbing with exertion Aggravating factors: everything Alleviating factors: lying flat, no touching Severity: Pain level at its best 1-2/10, at its worst 7/10. Medications: Flexeril, Advil Intermittent loss of bladder since February 2023 The patient symptoms were not brought on by any discrete episode of injury or trauma to the spine. Was not associated with a new illness or viral syndrome. The symptoms are not associated with any concerning constitutional symptoms such as fever, rash, unexplained change in weight or appetite. There is no undue fatigue or night sweats. Current and prior treatments: -Physical therapy/HEP: denies -home care provider: denies -Pain management: denies -Prior neurosurgical surgeries: denies ALLERGIES No Known Allergies MEDICATIONS Current Outpatient Medications: cyclobenzaprine (FLEXERIL) 10 mg tablet, Take 1 tablet (10 mg total) by mouth every 8 (eight) hoursas needed for muscle spasms for up to 9 doses. MAY CAUSE SEDATION. NO DRIVING, Disp: 9 tablet, Rfl:0 dextroamphetamine-amphetamine (ADDERALL) 20 mg tablet, 1 tablet (20 mg total) in the morning., Disp: , Rfl: ibuprofen (MOTRIN) 800 mg tablet, TAKE 1 TABLET BY MOUTH THREE TIMES A DAY, Disp: 90 tablet, Rfl: 0 MOUNJARO 7.5 mg/0.5 mL pen injector, Inject 7.5 mg under the skin once a week., Disp: , Rfl: nystatin (MYCOSTATIN) powder, Apply 1 Application topically in the morning and 1 Application beforebedtime., Disp: , Rfl: ondansetron ODT (ZOFRAN ODT) 4 mg disintegrating tablet, Dissolve 1 tablet (4 mg total) on tongue every 6 (six) hours., Disp: , Rfl: VYVANSE 50 mg capsule, Take 1 capsule (50 mg total) by mouth every morning., Disp: , Rfl: VITAL SIGNS LMP 04/03/2023 (Exact Date) PAST MEDICAL HISTORY The following portions of the patient's history were reviewed and updated as appropriate: allergies, current medications, past family history, past medical history, past social history, past surgicalhistory and problem list. Past Medical History: Diagnosis Date AMA (advanced maternal age) multigravida 35+ Cervical disc disorder Gestational diabetes Lumbosacral disc disease Migraine Polycystic ovary syndrome Recurrent loss, antepartum condition or complication PAST SURGICAL HISTORY Past Surgical History: Procedure Laterality Date APPENDECTOMY CERCLAGE CERVIX N/A 12/08/2016 Performed by Dannie Patel MD at [facility] OR SECTION 2018 CHOLECYSTECTOMY BEHAVORIAL SCREENING Elective Fusion Surgery: N/A Medical Marijuana/CBD use: N/A Multiple Surgeries?: N/A RED FLAGS Red Flags Fever: denies Night Sweats: denies Unintended Weight Loss: denies History of Cancer: denies Immunocompromised?: insulin resistant, pre-diabetes Substance Abuse- Active: denies Substance Abuse- Prior History: denies Cauda Equina Symptoms: loss of bladder YELLOW FLAGS Yellow Flag Symptomatic Depression: denies Active major thought disorder: No Excessive Narcotic Use/ MEW >30 per day: no Current average daily MEQ: 0 OARRS/MAPS Report Red Flags: 0 Work Dissatisfaction: N/A FAMILY HISTORY Family History Problem Relation Age of Onset Alzheimer's disease Maternal Grandmother Hypertension Maternal Grandmother Irritable bowel syndrome Maternal Grandmother Stroke Maternal Grandfather Cancer Maternal Grandfather stomach Heart attack Maternal Grandfather Hypertension Maternal Grandfather Heart disease Maternal Grandfather Thyroid disease Maternal Grandfather Thyroid disease Mother Irritable bowel syndrome Mother SOCIAL HISTORY Social History Socioeconomic History Marital status: Spouse name: Not on file Number of children: Not on file Years of education: Not on file Highest education level: Not on file Occupational History Not on file Tobacco Use Smoking status: Never Smokeless tobacco: Never Vaping Use Vaping Use: Never used Substance and Sexual Activity Alcohol use: No Drug use: No Sexual activity: Defer Other Topics Concern Not on file Social History Narrative Not on file Social Determinants of Health Financial Resource Strain: Not on file Food Insecurity: No Food Insecurity (04/14/2023) Hunger Screening Food Insecurity - Worry: Never True Food Insecurity - Inability: Never True Transportation Needs: Not on file Physical Activity: Not on file Stress: Not on file Social Connections: Not on file Interpersonal Safety: Not on file Housing Instability: Not on file REVIEW OF SYSTEMS Review of Systems Constitutional: Positive for fatigue. HENT: Negative. Eyes: Negative. Respiratory: Negative. Cardiovascular: Negative. Gastrointestinal: Positive for constipation. Endocrine: Negative. Genitourinary: Intermittent urinary incontinence Musculoskeletal: Positive for back pain. Skin: Negative. Allergic/Immunologic: Negative. Neurological: Positive for numbness and headaches. Hematological: Does not bruise/bleed easily. Psychiatric/Behavioral: Positive for sleep disturbance. PHYSICAL EXAMINATION Neurologic Exam Mental Status Oriented to person, place, and time. Level of consciousness: alert Knowledge: good. Motor Exam Muscle bulk: normal Overall muscle tone: normal Strength Right neck flexion: 5/5 Left neck flexion: 5/5 Right neck extension: 5/5 Left neck extension: 5/5 Right deltoid: 5/5 Left deltoid: 5/5 Right biceps: 5/5 Left biceps: 5/5 Right triceps: 5/5 Left triceps: 5/5 Right wrist flexion: 5/5 Left wrist flexion: 5/5 Right wrist extension: 5/5 Left wrist extension: 5/5 Right interossei: 5/5 Left interossei: 5/5 Right abdominals: 5/5 Left abdominals: 5/5 Right iliopsoas: 5/5 Left iliopsoas: 5/5 Right quadriceps: 5/5 Left quadriceps: 5/5 Right hamstrin/5 Left hamstrin/5 Right glutei: 5/5 Left glutei: 5/5 Right anterior tibial: 5/5 Left anterior tibial: 5/5 Right posterior tibial: 5/5 Left posterior tibial: 5/5 Right peroneal: 5/5 Left peroneal: 5/5 Right gastroc: 5/5 Left gastroc: 5/5 Sensory Exam Right arm light touch: normal Left arm light touch: normal Right leg light touch: normal Left leg light touch: entire leg decreased. Gait, Coordination, and Reflexes Gait Gait: normal Tremor Resting tremor: absent Intention tremor: present Action tremor: absent Reflexes Right brachioradialis: 2+ Left brachioradialis: 2+ Right biceps: 2+ Left biceps: 2+ Right triceps: 2+ Left triceps: 2+ Right patellar: 2+ Left patellar: 2+ Right achilles: 2+ Left achilles: 2+ Right mellowing machine operator: 2+ Left mellowing machine operator: 2+ Right Andujar: absent Left Andujar: absent Right ankle clonus: absent Left ankle clonus: absent MRI / IMAGES Lumbar flexion/extension x-rays 05/04/23 Narrative & Impression EXAM: XR LUMBAR SPINE AP, LATERAL, FLEXION AND EXTENSION ONLY INDICATION: Pain COMPARISON: 08/25/2021 TECHNIQUE: 4 views of the lumbar spine. FINDINGS: Levoconvex contour of the lumbar spine. 5 nonrib-bearing lumbar-type vertebral bodies. Vertebral body heights and densities are normal. Multilevel degenerative disc disease with associated disc spacenarrowing, vertebral endplate sclerosis, and osteophytosis most pronounced at L5-S1. No acute fracture or evidence of traumatic malalignment. No instability on flexion or extension views. IMPRESSION: Degenerative changes most pronounced at L5-S1. Mild levoconvex curvature. ASSESSMENT/ PLAN Karuna Dumont is a new patient who presents for evaluation of low back pain that has been intermittent since 2021, but became more consistent in February of 2023. Cindy reports a constant ache that becomes stabbing with exertion in the bilateral low back. She advises she has pain that radiatesinto the posterior LLE to the heel with intermittent pain radiating into the posterior RLE as far as the knee. Her pain is exacerbated by everything and alleviated by laying flat and not being touched. She has also tried flexeril and advil. Cindy also admits to intermittent urinary incontinence that began in February. Pertinent exam findings: There is a sensory deficit in the entire LLE. PLAN: Lumbar MRI without contrast. Patient has a sensory deficit in the LLE and severe disc space narrowing at L5-S1. Consider referral to Pain Management vs Neurosurgeon once MRI is complete. Discussed referral to PT for cervical traction. Patient would like to wait until the lumbar MRI hasbeen completed. Follow up in after MRI. OARRS was reviewed and report shows no signs of diversion. Patient counseled on smoking cessation if applicable. If elevated BMI recorded, patient counselled on weight loss to promote health. I educated the patient on signs and symptoms, and/or provided information in the AVS regarding cauda equina and myelopathy if pertinent. I advised the patient to go to the ER for evaluation, if thesesymptoms should occur. All questions were answered during the encounter and the patient was in agreement with plan of care. The patient was counseled regarding impressions, instructions for management and importance of compliance with treatment. The patient has been advised to contact my office for any change in symptomsor worsening pain. This note was created with the assistance of a speech recognition program with the goal of generating a timely record of the patient encounter. Inadvertent computerized chief electrician errors related to syntax, spelling, homophones, and/or inaudibility may be present. Thank you for your referral. CAIT Perla CNP 05/08/23 1440 [facility] History of Present illness Narrative* Everett Okeefe NP - 05/04/2023 10:00 AM EST Chief [...] finger for about 2 weeks. Went to [facility]03/09 due to having numbness in finger and unable to straighten it. Had X[facility] at . [facility]. Unable to get into hand specialist at [facility] until May 16. Continues to have [...] crooked. PT is RT handed Prior [place]: [facility] 03/09/23, XR, [facility], [facility] , XR 03/13/23, Ice, Heat, [facility], [facility] ALLERGIES: No Known Allergies HOME MEDICATIONS: Current Outpatient Medications Medication Instructions amphetamine-dextroamphetamine (Adderall) 20 MG tablet 1 TABLET ORALLY MID DAY 30 DAYS cyclobenzaprine (Flexeril) 10 MG tablet PLEASE SEE ATTACHED FOR DETAILED DIRECTIONS fluconazole (DIFLUCAN) 100 mg, Oral, Daily nystatin (Mycostatin) 070933 UNIT/GM powder APPLY TO AFFECTED AREA TOPICALLY [...] normal Pronation: normal Supination: normal Muscle Strength Luncheonette Manager: 3/5 Other Erythema: absent Pulse: present [...] new symptoms develop for requiring urgent evaluation. Everett CHAVIRA documented in this encounterNortheast [facility] Health [id number] Evaluation note* Encounter Date Diagnosis Assessment Notes Treatment Notes Treatment Clinical Notes Apr, Adult ADHD (attentio n deficit hyperactivity disorder) (ICD-10 - F90.9) [facility] Other 01-12-2024 History of Present illness Narrative* CAIT Song - 04/14/2023 11:20 AM EST Images from the original note were not included. Subjective: Patient ID: Karuna Dumont is a 42 y.o. female. Chief Complaint Patient presents with Back Pain Patient states he has a herniated disk in her L5, S1. Patient does see [facility] spinal surgeon butcan't get in until late May Presents for evaluation of low back pain. Patient has an established diagnosis of herniated disc between L5 and S1 diagnosed [facility]. She is waiting for follow-up in May. Today she is specifically asking for muscle relaxants as she has been unable to obtain these through her primary care or [facility] she has had them in the past has not had any complication. She is using [id number] pain patches. She denies any recent change in bowel or bladder habits numbness or tingling to lower extremities. Addition she is asking for the possibility of low back film as she has 1 ordered outpatient from her [facility] treatment team. Denies any recent trauma. The following portions of the patient's history were reviewed and updated as appropriate: allergies, current medications, past family history, past medical history, past social history, past surgicalhistory and problem list. Review of Systems Constitutional: Negative for fever. Gastrointestinal: Negative for constipation and diarrhea. Genitourinary: Negative for dysuria. Musculoskeletal: Positive for back pain. Past Medical History: Diagnosis Date AMA (advanced maternal age) multigravida 35+ Cervical disc disorder Gestational diabetes Lumbosacral disc disease Migraine Polycystic ovary syndrome Recurrent loss, antepartum condition or complication Past Surgical History: Procedure Laterality Date APPENDECTOMY CERCLAGE CERVIX N/A 12/08/2016 Performed by Dannie Patel MD at [facility] OR SECTION 2018 CHOLECYSTECTOMY Social History Tobacco Use Smoking status: Never Smokeless tobacco: Never Vaping Use Vaping Use: Never used Substance Use Topics Alcohol use: No Drug use: No Family History Problem Relation Age of Onset Alzheimer's disease Maternal Grandmother Hypertension Maternal Grandmother Irritable bowel syndrome Maternal Grandmother Stroke Maternal Grandfather Cancer Maternal Grandfather stomach Heart attack Maternal Grandfather Hypertension Maternal Grandfather Heart disease Maternal Grandfather Thyroid disease Maternal Grandfather Thyroid disease Mother Irritable bowel syndrome Mother No Known Allergies Current Outpatient Medications on File Prior to Visit Medication Sig Dispense Refill dextroamphetamine-amphetamine (ADDERALL) 20 mg tablet 1 tablet (20 mg total) in the morning. ibuprofen (MOTRIN) 800 mg tablet TAKE 1 TABLET BY MOUTH THREE TIMES A DAY 90 tablet 0 MOUNJARO 7.5 mg/0.5 mL pen injector Inject 7.5 mg under the skin once a week. nystatin (MYCOSTATIN) powder Apply 1 Application topically in the morning and 1 Application before bedtime. ondansetron ODT (ZOFRAN ODT) 4 mg disintegrating tablet Dissolve 1 tablet (4 mg total) on tongue every 6 (six) hours. VYVANSE 50 mg capsule Take 1 capsule (50 mg total) by mouth every morning. No current facility-administered medications on file prior to visit. Objective: Vitals: 04/14/23 1138 04/14/23 1143 BP: (!) 128/94 (!) 133/97 BP Site: Left Arm Left Arm BP Postition: Sitting Sitting Pulse: 92 Resp: 14 Temp: 37 C (98.6 F) TempSrc: Temporal SpO2: 100% Weight: 106.3 kg (234 lb 6.4 oz) Patient's last menstrual period was 04/03/2023 (exact date). The patient is not currently . Body mass index is 39.01 kg/m . Facility age limit for growth %abel is 20 years. Physical Exam Vitals and nursing note reviewed. Constitutional: Appearance: She is well-developed. HENT: Head: Normocephalic and atraumatic. Mouth/Throat: Comments: Tolerating oral secretions without complication Cardiovascular: Rate and Rhythm: Normal rate. Pulmonary: Effort: No respiratory distress. Comments: No conservational dyspnea noted Abdominal: General: Abdomen is protuberant. Palpations: Abdomen is soft. Tenderness: There is no abdominal tenderness. Musculoskeletal: Cervical back: Normal. No rigidity. Thoracic back: Normal. Lumbar back: Tenderness present. No bony tenderness. Negative right straight leg raise test and negative left straight leg raise test. Back: Skin: General: Skin is warm and dry. Neurological: Mental Status: She is alert. GCS: GCS eye subscore is 4. GCS verbal subscore is 5. GCS motor subscore is 6. Psychiatric: Attention and Perception: Attention normal. Mood and Affect: Affect is not inappropriate. Speech: Speech normal. Assessment/Plan: Patient is well-appearing with mildly elevated blood pressure 133/97 otherwise unremarkable vital signs. She has no exam findings consistent with cauda equina or need for emergent transfer at this time. I am agreeable to providing her a short prescription of Flexeril per her request. I have evaluated her [facility] reporting risk OARRS report overdose risk score 270 (210 of which is based on her add medication adderall) I have discussed with her safe usage of muscle relaxants. She should continue using the topical pain patches. Additionally I am agreeable to getting the plain-film image ordered by [facility]. After ordering this she has declined exam indicating that she will consider getting this as anoutpatient prior to her follow-up. OAARS report reviewed via OARRS/MAPS in [employer]. Discussed with the patient/caregiversafe and effective use of the medication prescribed. Call 911 or have someone call 911 for any of the following: You are breathing slower than normal, or you have trouble breathing. You cannot be woken. You have a seizure. Seek care immediately if: Your heart is beating slower than usual. Your heart feels like it is jumping or fluttering. You have trouble staying awake. You have severe muscle pain or weakness. You see or hear things that are not real. Follow up with Your PCP in the next 3 days. Discussed with the patient and all questioned fully answered. She will call me if any problems arise. Karuna was seen today for back pain. Diagnoses and all orders for this visit: Acute left-sided low back pain with left-sided sciatica - Cancel: X-ray spine lumbar 2 or 3 views - cyclobenzaprine (FLEXERIL) 10 mg tablet; Take 1 tablet (10 mg total) by mouth every 8 (eight) hours as needed for muscle spasms for up to 9 doses. MAY CAUSE SEDATION. NO DRIVING Orders Placed or Reconciled This Encounter Medications VYVANSE 50 mg capsule Sig: Take 1 capsule (50 mg total) by mouth every morning. dextroamphetamine-amphetamine (ADDERALL) 20 mg tablet Si tablet (20 mg total) in the morning. nystatin (MYCOSTATIN) powder Sig: Apply 1 Application topically in the morning and 1 Application before bedtime. ondansetron ODT (ZOFRAN ODT) 4 mg disintegrating tablet Sig: Dissolve 1 tablet (4 mg total) on tongue every 6 (six) hours. MOUNJARO 7.5 mg/0.5 mL pen injector Sig: Inject 7.5 mg under the skin once a week. cyclobenzaprine (FLEXERIL) 10 mg tablet Sig: Take 1 tablet (10 mg total) by mouth every 8 (eight) hours as needed for muscle spasms for up to 9 doses. MAY CAUSE SEDATION. NO DRIVING Dispense: 9 tablet Refill: 0 Patient Instructions Please consider immediate medical re-evaluation from a healthcare provider for any worsening, concerning, or new symptoms. Please contact your primary care physician's office within the next 1-2 business days to share the information that has been discussed with you during today's visit. If you do not have a primary carephysician, please consider returning to urgent care or the nearest emergency dept. for evaluation of non-improving symptoms until you are established with a primary care practice. If you have been prescribed any medications during your visit today, those medications have been discussed with you including: Dose, frequency, duration, and potential side effects. Every individual responds differently to each medication, please use caution until you understand how each medicationaffects you individually. If you have been recommended [id number] medications please use those medications as indicated on their packaging detail. Patient Education Patient Education Muscle and Bone Pain Discharge Instructions About this topic You can have pain in many different areas of your body. Sometimes, it is hard for the doctor to tell exactly where the pain is coming from. You can have pain in your muscles, bones, or joints. It canalso happen in your tendons and ligaments which connect these together. If you have an injury, you may have signs like: Pain, either in one part of your body or all over Aches or stiffness Feeling of a muscle pull Muscle twitching Feeling of burning in your muscles Being very tired Not sleeping well Causes of this kind of pain may include: Overuse or using a muscle in the same way over and over Trauma from falls, accidents, direct blows to muscles, and injuries such as bone breaks, sprains, or dislocations Strain on your muscles from bad posture Having a body part held in one position for a long period of time What care is needed at home? Ask your doctor what you need to do when you go home. Make sure you ask questions if you do not understand what the doctor says. This way you will know what you need to do. Your care at home will depend on what the cause of your problem is. This may include: Avoiding or stopping activities that cause you pain. Using a splint or brace for a period of time. This will let the injured area rest and heal. Heat can help lower pain. Your doctor may suggest that you soak in warm water. If your doctor tellsyou to use heat, put a heating pad on the painful part for no more than 20 minutes at a time. Nevergo to sleep with a heating pad on as this can cause bhat. Place an ice pack or a bag of frozen peas wrapped in a towel over the painful part. Never put ice right on the skin. Do not leave the ice on more than 10 to 15 minutes at a time. Exercises to stretch and make muscles stronger. Methods to help you relax Massage therapy Other therapies such as acupuncture and acupressure Pain relieving or anti-inflammatory drugs. These can be taken by mouth or given as a shot into or near the painful part. Other drugs for patients with some health problems such as fibromyalgia. These would help with sleep, pain, and the immune system. Surgery may be needed for problems such as bone breaks or other injuries. What follow-up care is needed? Your doctor may ask you to make visits to the office to check on your progress. Be sure to keep allthese visits. Your doctor may send you to physical therapy, occupational therapy, or a chiropractorto help you heal faster. Will physical activity be limited? Your doctor may ask you to rest and limit your activity. This could last for a few days to a numberof weeks based on how bad your problem is. Your doctor may want you to use a brace or splint to keep your injured area still for a while. What can be done to prevent this health problem? Some injuries are due to using a muscle in the same way over and over again. You may need to stop or limit an activity to let your injury heal. Lead an active lifestyle and keep your muscles strong and flexible to keep these injuries from happening. Keep a healthy weight to avoid too much strain on your joints and muscles. Use good posture and good body mechanics. This will help you stay pain free. When do I need to call the doctor? Signs of infection. These include a fever of 100.4 F (38 C) or higher, chills, very bad sore throat, ear or sinus pain, cough, more sputum or change in color of sputum, pain with passing urine, mouthsores, or wound that will not heal. If your pain does not go away and your drugs are not helping If you have very bad pain and you do not know why You are not feeling better in 2 to 3 days or you are feeling worse Teach Back: Helping You Understand The Teach Back Method helps you understand the information we are giving you. After you talk with the staff, tell them in your own words what you learned. This helps to make sure the staff has described each thing clearly. It also helps to explain things that may have been confusing. Before going home, make sure you can do these: I can tell you about my pain. I can tell you what may help ease my pain. I can tell you what I will do if I my pain does not go away or my pain drugs are not helping. Last Reviewed Date 2020-01-13 Consumer Information Use and Disclaimer This generalized information is a limited summary of diagnosis, treatment, and/or medication information. It is not meant to be comprehensive and should be used as a tool to help the user understand and/or assess potential diagnostic and treatment options. It does NOT include all information about conditions, treatments, medications, side effects, or risks that may apply to a specific patient. Itis not intended to be medical advice or a substitute for the medical advice, diagnosis, or treatment of a health care provider based on the health care provider's examination and assessment of a patient s specific and unique circumstances. Patients must speak with a health care provider for complete information about their health, medical questions, and treatment options, including any risks or benefits regarding use of medications. This information does not endorse any treatments or medications as safe, effective, or approved for treating a specific patient. [employer] and its affiliatesdisclaim any warranty or liability relating to this information or the use thereof. The use of thisinformation is governed by the Terms of Use, available at https://www.[employer].Who [employer] You/en/know/vvohvtvs-vqnzwhhukngmk-oaetu Copyright Copyright 2022 [employer] and its affiliates and/or licensors. All rights reserved. OVER THE COUNTER PAIN CONTROL GUIDELINES To help control your pain a combination of gvko-sbe-rnthiql (OTC) pain medications can be used successfully for most people. Please follow the following regimen: Ibuprofen (Advil, Motrin are common brands) 200mg - take 2 or 3 tablets (400 or 600mg) every 6 hours Acetaminophen (Tylenol) 325mg - take 1 or 2 tablets (325 or 650mg) every 6 hours. These should be alternated so that you are taking one of them every 3 hours - as an example: 6am - Ibuprofen 600mg 9am - Tylenol 650mg 12 noon - Ibuprofen 600mg 3pm - Tylenol 650mg 6pm - Ibuprofen 600mg 9pm - Tylenol 650mg 12 midnight - Ibuprofen 3am - Tylenol 650mg This will maximize the amount of Ibuprofen & Acetaminophen you can have in a 24 hour period so reduce the amount or frequency of the medication as soon as you are able to. SPECIAL NOTES Take with small amounts of food to help reduce nausea or stomach upset Do NOT take Ibuprofen if you have kidney dysfunction or bleeding ulcers Do NOT take Tylenol along with Combes or Percocet (they already have Tylenol) Do NOT drink Alcohol while taking Tylenol If you have any questions please talk to your doctor or a pharmacist This note is dictated with the use of M*Modal.Please note that this dictation was completed with computer voice recognition software. Quite often unanticipated grammatical, syntax, homophones, and other interpretive errors are inadvertently transcribed by the computer software. Please disregard these errors. Please excuse any errors that have escaped final proofreading. I personally discussed test results with patient/parent. Education handout and discharge papers given. Paperwork explained. Denies questions or concerns. Discussed that follow up care is usually required after a visit to the Urgent care. It is your responsibility to contact your primary care provider for follow up. If symptoms are not improving, worsening, or concerning symptoms of illness develop, follow up withyour primary care provider or go to the nearest Emergency Department for further care immediately. CAIT Song 04/14/23 1202 documented in this encounterAv[facility] Health [facility] HospitalCovarity [id number] Instructions* Patient Instructions* CAIT Song - 04/14/2023 11:20 AM EST Images from the original note were not included. Please consider immediate medical re-evaluation from a healthcare provider for any worsening, concerning, or new symptoms. Please contact your primary care physician's office within the next 1-2 business days to share the information that has been discussed with you during today's visit. If you do not have a primary carephysician, please consider returning to urgent care or the nearest emergency dept. for evaluation of non-improving symptoms until you are established with a primary care practice. If you have been prescribed any medications during your visit today, those medications have been discussed with you including: Dose, frequency, duration, and potential side effects. Every individual responds differently to each medication, please use caution until you understand how each medicationaffects you individually. If you have been recommended iezv-snn-kigmnit medications please use those medications as indicated on their packaging detail. Patient Education Patient Education Muscle and Bone Pain Discharge Instructions About this topic You can have pain in many different areas of your body. Sometimes, it is hard for the doctor to tell exactly where the pain is coming from. You can have pain in your muscles, bones, or joints. It canalso happen in your tendons and ligaments which connect these together. If you have an injury, you may have signs like: Pain, either in one part of your body or all over Aches or stiffness Feeling of a muscle pull Muscle twitching Feeling of burning in your muscles Being very tired Not sleeping well Causes of this kind of pain may include: Overuse or using a muscle in the same way over and over Trauma from falls, accidents, direct blows to muscles, and injuries such as bone breaks, sprains, or dislocations Strain on your muscles from bad posture Having a body part held in one position for a long period of time What care is needed at home? Ask your doctor what you need to do when you go home. Make sure you ask questions if you do not understand what the doctor says. This way you will know what you need to do. Your care at home will depend on what the cause of your problem is. This may include: Avoiding or stopping activities that cause you pain. Using a splint or brace for a period of time. This will let the injured area rest and heal. Heat can help lower pain. Your doctor may suggest that you soak in warm water. If your doctor tellsyou to use heat, put a heating pad on the painful part for no more than 20 minutes at a time. Nevergo to sleep with a heating pad on as this can cause bhat. Place an ice pack or a bag of frozen peas wrapped in a towel over the painful part. Never put ice right on the skin. Do not leave the ice on more than 10 to 15 minutes at a time. Exercises to stretch and make muscles stronger. Methods to help you relax Massage therapy Other therapies such as acupuncture and acupressure Pain relieving or anti-inflammatory drugs. These can be taken by mouth or given as a shot into or near the painful part. Other drugs for patients with some health problems such as fibromyalgia. These would help with sleep, pain, and the immune system. Surgery may be needed for problems such as bone breaks or other injuries. What follow-up care is needed? Your doctor may ask you to make visits to the office to check on your progress. Be sure to keep allthese visits. Your doctor may send you to physical therapy, occupational therapy, or a chiropractorto help you heal faster. Will physical activity be limited? Your doctor may ask you to rest and limit your activity. This could last for a few days to a numberof weeks based on how bad your problem is. Your doctor may want you to use a brace or splint to keep your injured area still for a while. What can be done to prevent this health problem? Some injuries are due to using a muscle in the same way over and over again. You may need to stop or limit an activity to let your injury heal. Lead an active lifestyle and keep your muscles strong and flexible to keep these injuries from happening. Keep a healthy weight to avoid too much strain on your joints and muscles. Use good posture and good body mechanics. This will help you stay pain free. When do I need to call the doctor? Signs of infection. These include a fever of 100.4 F (38 C) or higher, chills, very bad sore throat, ear or sinus pain, cough, more sputum or change in color of sputum, pain with passing urine, mouthsores, or wound that will not heal. If your pain does not go away and your drugs are not helping If you have very bad pain and you do not know why You are not feeling better in 2 to 3 days or you are feeling worse Teach Back: Helping You Understand The Teach Back Method helps you understand the information we are giving you. After you talk with the staff, tell them in your own words what you learned. This helps to make sure the staff has described each thing clearly. It also helps to explain things that may have been confusing. Before going home, make sure you can do these: I can tell you about my pain. I can tell you what may help ease my pain. I can tell you what I will do if I my pain does not go away or my pain drugs are not helping. Last Reviewed Date 2020-01-13 Consumer Information Use and Disclaimer This generalized information is a limited summary of diagnosis, treatment, and/or medication information. It is not meant to be comprehensive and should be used as a tool to help the user understand and/or assess potential diagnostic and treatment options. It does NOT include all information about conditions, treatments, medications, side effects, or risks that may apply to a specific patient. Itis not intended to be medical advice or a substitute for the medical advice, diagnosis, or treatment of a health care provider based on the health care provider's examination and assessment of a patient s specific and unique circumstances. Patients must speak with a health care provider for complete information about their health, medical questions, and treatment options, including any risks or benefits regarding use of medications. This information does not endorse any treatments or medications as safe, effective, or approved for treating a specific patient. [employer] and its affiliatesdisclaim any warranty or liability relating to this information or the use thereof. The use of thisinformation is governed by the Terms of Use, available at https://www.VenueAgent.com/en/know/ithdrqoz-ezmfkorcrcxwx-fhgps Copyright Copyright 2022 [employer] and its affiliates and/or licensors. All rights reserved. OVER THE COUNTER PAIN CONTROL GUIDELINES To help control your pain a combination of tbwk-zle-jmaufnb (OTC) pain medications can be used successfully for most people. Please follow the following regimen: Ibuprofen (Advil, Motrin are common brands) 200mg - take 2 or 3 tablets (400 or 600mg) every 6 hours Acetaminophen (Tylenol) 325mg - take 1 or 2 tablets (325 or 650mg) every 6 hours. These should be alternated so that you are taking one of them every 3 hours - as an example: 6am - Ibuprofen 600mg 9am - Tylenol 650mg 12 noon - Ibuprofen 600mg 3pm - Tylenol 650mg 6pm - Ibuprofen 600mg 9pm - Tylenol 650mg 12 midnight - Ibuprofen 3am - Tylenol 650mg This will maximize the amount of Ibuprofen & Acetaminophen you can have in a 24 hour period so reduce the amount or frequency of the medication as soon as you are able to. SPECIAL NOTES Take with small amounts of food to help reduce nausea or stomach upset Do NOT take Ibuprofen if you have kidney dysfunction or bleeding ulcers Do NOT take Tylenol along with Combes or Percocet (they already have Tylenol) Do NOT drink Alcohol while taking Tylenol If you have any questions please talk to your doctor or a pharmacist documented in this [facility]01-10-2024 Evaluation note* Encounter Date Diagnosis Assessment Notes Treatment Notes Treatment Clinical Notes Apr, Adult ADHD (attentio n deficit hyperactivity disorder) (ICD-10 - F90.9) [facility] Other 01-09-2024 Evaluation note* Encounter Date Diagnosis Assessment Notes Treatment Notes Treatment Clinical Notes Apr, Adult ADHD (attentio n deficit hyperactivity disorder) (ICD-10 - F90.9) [facility] Other 01-08-2024 Evaluation note* Encounter Date Diagnosis Assessment Notes Treatment Notes Treatment Clinical Notes Apr, Adult ADHD (attentio n deficit hyperactivity disorder) (ICD-10 - F90.9) [facility] Other 10-30-2023 Evaluation note* Encounter Date Diagnosis Assessment Notes Treatment Notes Treatment Clinical Notes Jan, Adult ADHD (attentio n deficit hyperactivity disorder) (ICD-10 - F90.9) [facility] Other 10-02-2023 Evaluation note* Encounter Date Diagnosis [...] in 3 months or sooner if needed. [facility] Other 09-08-2023 Evaluation note* Encounter Date Diagnosis Assessment Notes Treatment Notes Treatment Clinical Notes Dec, Adult ADHD (attentio n deficit hyperactivity disorder) (ICD-10 - F90.9) [facility] Other 09-07-2023 Evaluation note* Encounter Date Diagnosis Assessment Notes Treatment Notes Treatment Clinical Notes Dec, Adult ADHD (attentio n deficit hyperactivity disorder) (ICD-10 - F90.9) [facility] Other 08-30-2023 Evaluation note* Encounter Date Diagnosis [...] Cutaneous candidiasis (ICD-10 - B37.2) Refilled diflucan. [facility] Other 07-11-2023 Hospital Discharge instructions* Discharge Instructions* Bailee Lew, ADJUNCT INSTRUCTOR - AQUACULTURIST - 10/11/2022 8:08 PM EDT [facility] a [facility] Use an ice pack or bag [...] through Care Everywhere. * RICE: General Info (Algerian) * Ankle Sprain (Algerian) documented in this encounterBON CHR[facility] [id number] Hospital Discharge instructions* Instructions* Radha Sanders MD - 08/19/2021 May use ice or heat, whichever feels better. May use Combes for pain. Prednisone as directed. Follow-up with [...] a follow up appointment THANK YOU!!! From [facility] and [facility] On behalf of the Emergency Department staff at [facility], I would like to thank you for giving us the opportunity to address your health care needs and concerns. We hope that during your visit, our service was delivered in a professional and caring manner. Please keep [facility] in mind as we walk [...] how we did during your visit at [email or web address] and let us know about your experience * Attachments The following attachments cannot be sent through Care Everywhere. * Herniated Disc (Algerian) [facility] [employer] Work Phone: evaluation note* Diagnosis Herniated lumbar intervertebral disc- Primary Displacement of lumbar intervertebral disc without myelopathy [facility] Phone: evaluation note* Diagnosis Gastroenteritis- Primary Other and unspecified noninfectious gastroenteritis and colitis documented in this encounter [facility] [employer] Work Phone: evaluation note* Diagnosis Sprain of right ankle, unspecified ligament, initial encounter- Primary documented in this encounter [facility] PromiseUPaluation noteNo InformationNocapital region medical center [employer] Other Evaluation note* Diagnosis 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 Pain in finger of right hand Pain in soft tissues of limb documented in this encounter [facility] HealthcareEvaluation noteNo assessment information availableAdena P[facility] Work Phone: Evaluation note* Diagnosis Postop check Follow-up examination, following unspecified surgery Low ferritin level Other nonspecific findings on examination of blood documented in this encounter [facility] HealthcareEvaluation note* Diagnosis Breast pain Mastodynia documented in this encounter [facility] HealthcareEvaluation note* Diagnosis Encounter to discuss procedure Menorrhagia with regular cycle Decreased libido [facility]* Diagnosis Pre-op examination Menorrhagia with regular cycle Abnormal uterine bleeding (AUB) Pelvic pain Hormone disorder Unspecified endocrine disorder documented in this encounter [facility]* Diagnosis Onset Date Resolution Status Admit Date Adult ADHD acute April 11 9:46am Wellness examination acute 2024 9:46am [facility] Work Phone: Evaluation note* Diagnosis Back pain, unspecified back location, unspecified back pain laterality, unspecified chronicity- Primary [facility] Diagnosis Acute left-sided low back pain with left-sided sciatica- Primary documented in [facility] SystemEvaluation note* Diagnosis Lumbar radiculopathy, chronic- Primary Urinary incontinence without sensory awareness Incontinence without sensory awareness Sensory deficit, left Spinal stenosis of lumbar region with neurogenic claudication documented in this encounter [facility] SystemEvaluation note* Diagnosis Herniated lumbar intervertebral disc- Primary Displacement of lumbar intervertebral disc without myelopathy documented in this encounter [facility] SystemEvaluation note* Diagnosis 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 Finger injury, right, initial encounter documented in this encounter [facility] SystemEvaluation note* Diagnosis Herniated lumbar intervertebral disc- Primary Displacement of lumbar intervertebral disc without myelopathy Lumbar radiculopathy, chronic documented in this encounter [facility] SystemEvaluation note* Diagnosis 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 documented in this encounter [facility] SystemEvaluation note* Diagnosis Lumbar radiculopathy, chronic- Primary Herniated lumbar intervertebral disc Displacement of lumbar intervertebral disc without myelopathy documented in this encounter [facility] SystemEvaluation note* Diagnosis Hallux valgus of left foot- Primary Instability of left foot joint Tailor's bunion of left foot Acquired deformity of left toe 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 Equinus contracture of left ankle Left foot pain Pain in soft tissues of limb Vitamin D insufficiency documented [facility]* Diagnosis Well woman exam with routine gynecological exam Routine gynecological examination Breast cancer screening by mammogram documented [facility]* Diagnosis Hallux valgus of left foot- Primary Instability of left foot joint Tailor's bunion of left foot Acquired deformity of left toe 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 Equinus contracture of left ankle documented in [facility]* Diagnosis Preop examination- Primary Unspecified pre-operative examination Hypertension, unspecified type documented in [facility] encounter [facility] SystemEvaluation note* Diagnosis S/P foot surgery- Primary Other postprocedural status Left foot pain Pain in soft tissues of limb Difficulty walking Difficulty in walking Instability of left ankle joint documented in [facility]* Diagnosis S/P foot surgery- Primary Other postprocedural status Left foot pain Pain in soft tissues of limb documented in [facility]* Diagnosis S/P foot surgery- Primary Other postprocedural status Left foot pain Pain in soft tissues of limb documented in this encounter [facility] HealthcareEvaluation note* Diagnosis S/P foot surgery- Primary Other postprocedural status Left foot pain Pain in soft tissues of limb documented in this encounter [facility] HealthcareHistory general Narrative - Reported* Type Description Date Medical History PCOS/insulin resistant Medical History PCOS (polycystic ovarian syndrom e) Medical History Frequent headaches Medical History Gestational diabetes Medical History Prediabetes Surgical History cholecystectomy 2004 Surgical History appendectomy 2006 Surgical History Hospitalization History see surgical hx [facility] Other Hospital Discharge instructions* Attachments The following attachments cannot be sent through Care Everywhere. * Gastroenteritis (Algerian) documented in this encounter[facility] NETWORK Phone: InstructionsNot on filedocumented in this encounter [facility] [employer] SystemInstructionsNot on filedocumented in this encounter [facility] SystemInstructions* Attachments The following attachments cannot be sent through Care Everywhere. * Radiculopathy (Algerian) * Spinal stenosis (Algerian) documented in this encounterProMad[facility] Health SystemInstructionsNot on file documented in this encounterProMadison Hospital Health SystemInstructionsNot on file documented in this encounterA[facility] SystemInstructionsNot on file documented in this encounterAdena [facility] System SystemInstructions* Pre-Procedure Instructions - Bessie Boswell RN - 01/18/2024 3:45 PM EDT Your surgery/procedure is scheduled at [facility] on 01/25/24 at 10 am Arrival Time 8 am [facility] Address: [address] [place] [address], [id number] Park in the Emergency Center Parking lot. Report to the manager front office in the Emergency/Surgery Registration lobby of the hospital. Notify your SURGEON if you develop any illness such as a cold, cough, fever, sore throat, vomiting or are hospitalized between now and your surgery. Please call Pre-Admission Clinic at [phone] if you have any questions prior to surgery. For questions the morning of surgery, call the Pre-op Department at [phone]. Medication Instructions (Do not stop your medications [...] would like to schedule therapy at a [facility], please call [phone] ([phone]). Do not use lotions, creams, powders, perfume, make up, cologne or after-shaves day of surgery. Remove ALL jewelry including wedding rings, body piercings, hair extensions that contain metal, nail macanese, make-up, and contact lens. You may brush your teeth the morning of surgery, but do not swallow the water. Wear your dentures and partial plates to the hospital (no adhesive). Shower the night the before. If applicable, use the CHG (chlorhexidine gluconate) soap or wipes. Please be advised, [facility] has transitioned to a cashless [...] RIGHTS AND RESPONSIBILITIES As a patient at [facility], you have the right to: Receive medical care and be informed of who is taking care of you Be treated with dignity and respect Have a family member/warehouse representative of choice and your physician notified of your admission Receive information and actively participate in decisions about your care and treatment Refuse care, treatment and services Decide who may provide your support and speak for you Access yazdanism and spiritual services Participate in ethical issues [...] of hospital charges and payment methods Patient/patient warehouse representative responsibilities are to: Provide information about health status to facilitate care, treatment and services Follow the treatment, plan, keep appointments and speak up when you do not understand the plan Respect the rights of other patients and healthcare personnel Follow organizational rules and regulations that support quality care and a safe environment Fulfill financial obligations as promptly as possible [facility] [employer] SystemInstructionsNot on filedocumented in this encounter [facility] [employer] SystemInstructionsNot on filedocumented in this encounter [facility] [employer] SystemInstructionsNot on filedocumented in this encounter [facility] SystemMiscellaneous Notes* Pre-Procedure Instructions - Bessie Boswell RN - 01/18/2024 3:45 PM EDT Your surgery/procedure is scheduled at [facility] on 01/25/24 at 10 am Arrival Time 8 am [facility] Address: [address] [place] [address], [id number] Park in the Emergency Center Parking lot. Report to the manager front office in the Emergency/Surgery Registration lobby of the hospital. Notify your SURGEON if you develop any illness such as a cold, cough, fever, sore throat, vomiting or are hospitalized between now and your surgery. Please call Pre-Admission Clinic at [phone] if you have any questions prior to surgery. For questions the morning of surgery, call the Pre-op Department at [phone]. Medication Instructions (Do not stop your medications [...] would like to schedule therapy at a [facility], please call [phone] ([phone]). Do not use lotions, creams, powders, perfume, make up, cologne or after-shaves day of surgery. Remove ALL jewelry including wedding rings, body piercings, hair extensions that contain metal, nail macanese, make-up, and contact lens. You may brush your teeth the morning of surgery, but do not swallow the water. Wear your dentures and partial plates to the hospital (no adhesive). Shower the night the before. If applicable, use the CHG (chlorhexidine gluconate) soap or wipes. Please be advised, [employer] [facility] [employer] has transitioned to a cashless payment system. [...] RIGHTS AND RESPONSIBILITIES As a patient at [facility], you have the right to: Receive medical care and be informed of who is taking care of you Be treated with dignity and respect Have a family member/warehouse representative of choice and your physician notified of your admission Receive information and actively participate in decisions about your care and treatment Refuse care, treatment and services Decide who may provide your support and speak for you Access yazdanism and spiritual services Participate in ethical issues [...] of hospital charges and payment methods Patient/patient warehouse representative responsibilities are to: Provide information about health status to facilitate care, treatment and services Follow the treatment, plan, keep appointments and speak up when you do not understand the plan Respect the rights of other patients and healthcare personnel Follow organizational rules and regulations that support quality care and a safe environment Fulfill financial obligations as promptly as possible documented in this encounterMemorial Health SystemReason for referral (narrative)* Consultation (Routine) - Pending Review Specialty Diagnoses / Procedures Referred By Contact Referred To Contact Physical Medicine and Rehabilitation Diagnoses Herniated lumbar intervertebral disc Lumbar radiculopathy, chronic Jennie Colon ADJUNCT INSTRUCTOR-AQUACULTURIST [address] [place] [address] Vishal Martin DO [address] [place] [address] Referral ID Status Reason Start Date Expiration Date Visits Requested Visits Authorized [id number] Pending Review Specialty Services Required 05/24/2023 05/23/2024 1 1 [facility] (narrative)* Consultation (Routine) - Pending Review Specialty Diagnoses / Procedures Referred By Contac t Referred To Contact Pain Medicine Diagnoses Lumbar radiculopathy, chronic Herniated lumbar intervertebral disc Jennie Colon APRN-RASHAUN [address] [place] [address] Davis Silva MD [address] [place] [address] Referral ID Status Reason Start Date Expiration Date V isits Requested Visits Authorized [id number] Pending Review 06/12/2023 06/11/2024 1 1 [facility] Advance Directives Documents on File Type Date Recorded Patient Garde Manager Expl anation ACP-Advance Directive ACP-Power of Radio Station Engineer Advance Directive Response Recorded Date/ Time Advance Directives No December 7:20pm Date Activated Date Inactivated Comments 01/25/2024 2:30 PM 01/26/2024 2:17 PM Advance Directive Response Recorded Date/ Time Advance Directives No April 10, 2024 9:32am Advance Directive Response Recorded Date/ Time Advance Directives No April 10, 2024 10:32am Summary Purpose Family History Relationship Condition Age at Onset Recorded Date/T omkar grandparent Hypertension Unknown Unknown Alzheimer's dementia Unknown Chief Complaint and Reason for Visit Chief Complaint Admit Date BP May 17, 2024 10:57am Surgical Clearance July 29, 2024 11: 15am Reason for Visit Admit Date Adult ADHD May 17, 2024 10:57am Benign essential HTN May 17, 2024 10:57am Chief Complaint Admit Date Wellness/High BP April 11, 2024 9: 46am BP May 17, 2024 10:57am Reason for Visit Admit Date Adult ADHD April 11, 2024 9: 46am Benign essential HTN April 11, 2024 9 :46am Wellness examination April 11, 2024 9 :46am Chief Complaint Admit Date Amb Documentation January 19, 2024 9 :18am Amb Documentation January 30, 2024 9 :01am Wellness/High BP April 11, 2024 9: 46am Reason for Visit Admit Date Adult ADHD April 11, 2024 9: 46am Wellness examination April 11, 2024 9 :46am Chief Complaint Menorrhagia with reg ular cycle/AUB Reason for Referral Specialty Diagnoses / Procedures Referred By Angela t Referred To Contact Radiology Diagnoses Lumbar radiculopathy, chronic Urinary incontinence without sensory awareness Sensory deficit, left Spinal stenosis of lumbar region with neurogenic claudication Procedures MR lumbar spine without contrast Jennie Colon, ADJUNCT INSTRUCTOR-AQUACULTURIST [address] [address] [facility] [address] [place] [address] Phone: [phone] Referral ID Status Reason Start Date Expiration Date V isits Requested Visits Authorized [id number] Pending Review 05/08/2023 05/07/2024 1 1 Additional Source Comments Reason for Visit (unrecogniz ed section and content) Reason Comments Back Pain Reason Comments Abdominal Pain Upper mid began 0400 Sat. Thinks its from bad vegetables Emesis Diarrhea Reason Comments Ankle Pain Rolled right ankle o n a tree branch Reason Comments Follow-up Reason Comments Post-op Visit Reason Comments Breast Problem Reason Comments discuss procedure Pt wants to discuss a hysterectomy vs. An ablation Reason Comments Endometrial Biopsy Pre-op Visit Reason Comments Back Pain Patient states he chao s a herniated disk in her L5, S1. Patient does see [facility] spinal surgeon but can't get in until late May Reason Comments Consult Low back pain Reason Comments Pain New patient chuck jose [...] site of digit, initial encounter Nicole Lockwood, ADJUNCT INSTRUCTOR-AQUACULTURIST [address] [place] [address] Rohit Smith MD [address] [facility] [address] [place] [address] Referral ID Status Reason Start Date Expiration Date Visits Requested Visits Authorized [id number] Pending Review Specialty Services Required 3 03/12/2024 1 1 Reason Comments Follow-up Rt anton ibanez 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 Reason Comments Foot Pain PT is here today for BL foot pain, Lt is worse. Painful bunion and tailors bunion area. Painful for her constantly, she purchased new shoes.SS: 9.5-10 Reason Comments Well Women Visit Reason Comments Post Op#1 Cindy Dumont is a 43 y.o. female who presents for Post Op#1. Reason Comments POV#2 Cindy Dumont is a 43 y.o. female who presents for Post Op#2.Date of surgery 08/08/2024: Patient continues 325mg aspirin, icing and advil prn. Reason Comments FUDomenica Dumont is a 43 y.o. female who presents for Post Op#3.Date of surgery 08/08/2024: Patient continues 325mg aspirin, icing and advil prn. Reason Comments GIANCARLO Dumont is a 43 y.o. 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 Continues icing and advil prn. Ordered Prescriptions (unrec ognized section and content) Prescription Sig Dispensed Refills Start Date End te predniSONE (DELTASONE) 10 MG tablet Take [...] would not scan at bedside. Verified with [facility] prior to administration.) Scheduled Medication Order [...] dose 1241 (Bolus from Bag - Provider: Burt Robles) ondansetron (ZOFRAN) injection 4 mg (COMPLETED) 4 mg, IntraVENous, ONCE, 1 dose, On Mon01/03/22 at 1215 1215 (Given - Provid er: Flor Garcia, ELVIS) PRN Medication Order 01/01/2022 01/02/2022 01/03/2022 iopamidol (ISOVUE-370) 76 % injection 75 mL (COMPLETED) 75 mL, IntraVENous, IMG ONCE PRN, 1 dose, Starting on Mon01/03/22 at 1233, Until Mon01/03/22 at 1240, Other 1240 (Given - Provid er: Burt Robles) sodium chloride flush 0.9 % injection 10 mL 10 mL, IntraVENous, PRN, Starting on Mon01/03/22 at 1233, Until Discontinued, Line Care 1241 (Given - Provid er: Burt Robles) Scheduled Medication Order 10/09/2022 10/10/2022 10/11/2022 HYDROcodone-acetaminophen (NORCO) 5-325 MG per tablet 1 tablet (COMPLETED) 1 tablet, Oral, ONCE, 1 dose, On Mon10/11/22 at 2000, Maximum dose of acetaminophen is 4000 mg from all sources in 24 hours. 2052 (Given - Provid er: Becky Toussaint, ELVIS) ketorolac (TORADOL) injection 30 mg (COMPLETED) 30 mg, IntraMUSCular, ONCE, 1 dose, On Mon10/11/22 at 1999, Do not administer for more than 5 days. 2051 (Given - Provid er: Becky Toussaint RN) Care Teams (unrecognized sec tion and content) Team Status: Active Member Role Status Dates Johnathon Winter MD Primary Care Provider Active Team Status: Inactive Member Role Status Dates Johnathon Winter MD Primary Care Provide r, Attending Provider Active Start: May 17, 2024 End: May 17, 2024 Team Status: Active Member Role Status Dates Johnathon Winter MD Primary Care Provider Active Start: July 08, 2024 Ruthie Phillips MD Attending Provider Active Start: July 08, 2024 Team Status: Active Member Role Status Dates Johnathon Winter MD Primary Care Provider Active Start: July 22, 2024 Sanjeev Lopez DO Attending Provider Active Start : July 22, 2024 Team Status: Inactive Member Role Status Dates Johnathon Winter MD Primary Care Provide r, Attending Provider Active Start: July 29, 2024 End: July 29, 2024 Gravel Roofer Relationship Specialty Start Date End Date Johnathon Winter MD PCP - General Family Medicine 03/08/16 Gravel Roofer Relationship Specialty Start Date End Date Johnathon Winter MD PCP - General Family Medicine 03/08/16 Gravel Roofer Relationship Specialty Start Date End Date Johnathon Winter MD PCP - General Family Medicine 03/08/16 Gravel Roofer Relationship Specialty Start Date End Date Johnathon Winter MD [address] [facility] [place] [address] PCP - General Family Medicine 12/12/22 Team Status: Active Member Role Status Dates Johnathon Winter MD Primary Care Provide r, Attending Provider Active Start: May 10, 2023 Team Status: Inactive Member Role Status Dates Tee Peterson MD Attending Provider Active Start: May 23, 2023 End: May 23, 2023 Team Status: Active Member Role Status Dates Sanjeev Lopez DO Attending Provider Active Start : October 25, 2023 Team Status: Active Member Role Status Dates Sanjeev Lopez DO Attending Provider Active Start : November 29, 2023 Team Status: Inactive Member Role Status Dates Sanjeev Lopez DO Attending Provider Active Start : December 06, 2023 End: December 06, 2023 Gravel Roofer Relationship Specialty Start Date End Date Johnathon Winter MD [address] [facility] [place] [id number] PCP - General Family Medicine 12/12/22 Gravel Roofer Relationship Specialty Start Date End Date Johnathon Winter MD [address] [facility] [place] [address] PCP - General Family Medicine 12/12/22 Gravel Roofer Relationship Specialty Start Date End Date Johnathon Winter MD [address] [facility] [place] [address] PCP - General Family Medicine 12/12/22 Gravel Roofer Relationship Specialty Start Date End Date Johnathon Winter MD [address] [facility] [place] [address] PCP - General Family Medicine 12/12/22 Gravel Roofer Relationship Specialty Start Date End Date Johnathon Winter MD [address] [facility] [place] [address] PCP - General Family Medicine 12/12/22 Gravel Roofer Relationship Specialty Start Date End Date Johnathon Winter MD [address] [facility] [place] [address] PCP - General Family Medicine 12/12/22 Gravel Roofer Relationship Specialty Start Date End Date Johnathon Winter MD [address] [facility] [place] [address] PCP - General Family Medicine 12/12/22 Gravel Roofer Relationship Specialty Start Date End Date Johnathon Winter MD [address] [facility] [place] [address] PCP - General Family Medicine 12/12/22 Gravel Roofer Relationship Specialty Start Date End Date Johnathon Winter MD [address] [facility], [place] [id number] PCP - General 03/13/23 Gravel Roofer Relationship Specialty Start Date End Date Johnathon Winter MD [address] [facility] [place] [address] PCP - General Family Medicine 12/12/22 Team [...] April 11, 2024 End: April 11, 2024 Gravel Roofer Relationship Specialty [place] [address] [place] [address] PCP - General 03/13/23 Gravel Roofer Relationship Specialty [place] [address] [place] [address] PCP - General 03/13/23 Team Status: Active Member Role Status Dates Johnathon Winter MD Primary Care Provide r, Attending Provider Active Start: April 15, 2024 Gravel Roofer Relationship Specialty Start Date End Date Johnathon Winter MD [address] [place] [address] PCP - General 03/13/23 Gravel Roofer Relationship Specialty Start Date End Date Johnathon Winter MD [address] [place] [address] PCP - General 03/13/23 Gravel Roofer Relationship Specialty Start Date End Date Johnathon Winter MD [address] [place] [address] PCP - General 03/13/23 Gravel Roofer Relationship Specialty Start Date End Date Johnathon Winter MD [address] [facility] [place] [address] PCP - General 03/13/23 Gravel Roofer Relationship Specialty Start Date End Date Johnathon Winter MD [address] [facility] [place] [address] PCP - General 03/13/23 Gravel Roofer Relationship Specialty Start Date End Date Johnathon Winter MD [address] [facility] [place] [address] PCP - General Family Medicine 12/12/22 Gravel Roofer Relationship Specialty Start Date End Date Johnathon Winter MD [address] [facility] [place] [address] PCP - General Family Medicine 12/12/22 Gravel Roofer Relationship Specialty Start Date End Date Johnathon Winter MD [address] [facility] [place] [address] PCP - General Family Medicine 12/12/22 Gravel Roofer Relationship Specialty Start Date End Date Johnathon Winter MD [address] [facility] [place] [address] PCP - General Family Medicine 12/12/22 Gravel Roofer Relationship Specialty Start Date End Date Johnathon Winter MD [address] [facility] [place] [address] PCP - General Family Medicine 12/12/22 Gravel Roofer Relationship Specialty Start Date End Date Johnathon Winter MD [address] [facility] [place] [address] PCP - General 03/13/23 Gravel Roofer Relationship Specialty Start Date End Date Johnathon Winter MD [address] [facility] [place] [address] PCP - General Family Medicine 12/12/22 Gravel Roofer Relationship Specialty Start Date End Date Johnathon Winter MD [address] [facility] [place] [address] PCP - General Family Medicine 12/12/22 Gravel Roofer Relationship Specialty Start Date End Date Johnathon Winter MD [address] [facility] [place] [address] PCP - General Family Medicine 12/12/22 Gravel Roofer Relationship Specialty Start Date End Date Johnathon Winter MD [address] [facility] [place] [address] PCP - General Family Medicine 12/12/22 Gravel Roofer Relationship Specialty Start Date End Date Johnathon Winter MD [address] [place], [place] [id number] PCP - General 03/13/23 INFORMATION SOURCE (unrecogn ized section and content) DATE CREATED AUTHOR 07/17/2022 [facility] DATE CREATED AUTHOR AUTHOR'S ORGANIZ ATION 10/12/2022 [facility] DATE CREATED AUTHOR AUTHOR'S ORGANIZ ATION 06/12/2023 [facility] DATE CREATED AUTHOR AUTHOR'S ORGANIZ ATION 12/01/2023 [facility] DATE CREATED AUTHOR AUTHOR'S ORGANIZ ATION 12/14/2023 [facility] DATE CREATED AUTHOR AUTHOR'S ORGANIZ ATION 01/26/2024 [facility] DATE CREATED AUTHOR AUTHOR'S ORGANIZ ATION 07/09/2024 [facility] DATE CREATED AUTHOR AUTHOR'S ORGANIZ ATION 10/23/2024 [facility] DATE CREATED AUTHOR AUTHOR'S ORGANIZ ATION 10/30/2024 [facility] DATE CREATED AUTHOR AUTHOR'S ORGANIZ ATION 11/01/2024 [facility] Goals (unrecognized section and content) Goals [...] BE BASED ON THE PRIMARY CLINICAL RECORDS. [facility] [employer] [facility]. provides no warranty or guarantee of the accuracy or completeness of information in this document.
== END 2024-11-28 09:49 | disposition home or self-care (01) ==
PROVIDERS: PCP Family Medicine; Visit Provider Nurse Practitioner
DX: M48.062 Spinal stenosis, lumbar region with neurogenic claudication (principal); M51.26 Other intervertebral disc displacement, lumbar region; M46.1 Sacroiliitis, not elsewhere classified
CPT/HCPCS: G0463

== ENCOUNTER 2025-01-06 07:14 | Day surgery (SDC) | payer BC, SELFPAY ==
--- OUTSIDE RECORDS SUMMARY | 2025-01-06 07:18 | XMS_ITS | CCD ---
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 Administration.Performed at: BN - [facility] [address] [id number] Director: Katelynn Macdonald MD, Phone: [phone] at: - [facility] [id number] [place], [place] [id number] Director: Theron Roblero PhD, Phone: [phone] Eosinophils # (Auto) 0.2 10 3/uL 0.0-0.[address] [facility] Immature Granulocyte # (Auto) 0.00 10 3/uL 0.00-0.03 [facility] Platelet mean volume Auto (B ld) [Entitic vol]on 07-08-2024 Platelet mean volume (Bld) [Entitic vol] Platelet mean volume [Entitic volume] in Blood by Automated count Low 9.5-13.5 [facility] Platelets Auto (Bld) [#/Vol] on 07-08-2024 Platelets (Bld) [#/Vol] Platelets [#/vol ume] in Blood by Automated count 150-450 [facility] RBC Auto (Bld) [#/Vol]on RBC (Bld) [#/Vol] Erythrocytes [#/volu me] in Blood by Automated count 4.20-5.40 [facility] Serum or plasma albumin/glob ulin mass ratioon 07-08-2024 Albumin/Globulin [Mass ratio] Serum or plasma albumin/globulin mass ratio [facility] Serum or plasma anion gap de terminationon 07-08-2024 Anion gap [Moles/Vol] Serum or plasma an ion gap determination [facility] Office Visiton 07-03-2024 Follow-up visit [id number] Cameron Dumont 1980 F Date Provider Department Center 07/03/2024 RUTHIE DEVRIES Family History Problem Relation Age of Onset Heart murmur Mother No Known Problems Father Family Status - Relation Status Age at Mother Alive Father Alive Level of Service:78831 UT OFFICE/OP CONSLTJ NEW/EST PT MOD MDM 40 MINUTES Normal [facility] Head or Brain w/o Contras ton [...] MD 06/28/24 11:24 a Technologist: Vannesa REESE [facility] Extra Blue 06-28-2024 Tube Collected Yes Invalid Interpretation Code [facility] Comment on above: Performed By: #### 1 [id number], [id number], [id number], [id number] ####[facility] (DEFAULT)[address] [place] [address] Cholesterol in LDL Calc [Mas s/Vol]on 04-15-2024 Cholesterol in LDL [Mass/Vol] Cholesterol in LDL [Mass/volume] in Serum or Plasma by calculation [facility] Comment on above: <100 mg/dl [id number] 0-129 mg/dl NEAR OR ABOVE LXIYRDC000-578 mg/dl BORDERLINE QURI340-559 mg/dl HIGH>190 mg/dl VERY HIGH Cholesterol in VLDL Calc [Ma ss/Vol]on 04-15-2024 Cholesterol in VLDL [Mass/Vol] Cholesterol in VLDL [Mass/volume] in Serum or Plasma by calculation [facility] Laboratory - Chemistry and C hemistry - challengeon 04-15-2024 Cholesterol [Mass/Vol] 174 mg/dL <=200 Fi [facility] Cholesterol in HDL [Mass/Vol] 65 mg/dL High 40-60 [facility] Comment on above: > or =60 mg/dl - LOW CARDIOVASCULAR RISK<40 mg/dl - HIGH CARDIOVASCULAR RISK Triglyceride [Mass/Vol] 83 mg/dL <=150 F [facility] Serum or plasma total choles terol/high density lipoprotein (HDL) cholesterol mass eulalio 04-15-2024 Cholesterol.total/Amber sterol in HDL [Mass ratio] Serum or plasma total cholesterol/high density lipoprotein (HDL) cholesterol mass [facility] Comment on above: 3.3 - 4.4 LOW RISK4. 4 - 7.1 AVERAGE RISK7.1 - 11.0 MODERATE RISK>11.0 HIGH RISK Free testosterone measuremen t by LC-MS/MSon 04-01-2024 Testosterone Free [Mass/Vol] Free testosterone measurement by LC-MS/MS 0.0-4.2 [facility] Comment on above: Performed at: [facility] [address] [id number] Director: Theron Roblero PhD, Phone: [phone] at: [email or web address] [facility] [id number] Director: Katelynn Macdonald MD, Phone: [phone] Glucose mean value [Mass/vol ume] in Blood Estimated from glycated hemoglobinon 04-01-2024 Average glucose Estimated from glycated hemoglobin (Bld) [Mass/Vol] Glucose mean value [Mass/volume] in Blood Estimated from glycated hemoglobin [facility] Laboratory - Chemistry and C hemistry - challengeon 04-01-2024 Cobalamin (Vitamin B12) [Mass/Vol] 336 pg/mL 232-1245 [facility] Comment on above: Performed at: [facility] [address] [id number] Director: Theron Roblero PhD, Phone: [phone] Ferritin [Mass/Vol] 11.0 ng/mL 8.0-252.0 [facility] Free T4 [Mass/Vol] 1.03 ng/dL 0.76-1.46 [facility] Glucose [Mass/Vol] 80 mg/dL 74-106 [facility] T4 [Mass/Vol] 9.30 ug/dL 4.80-13.90 [facility] TSH Qn 1.271 m[IU]/L 0.358-3.74 0 [facility] Laboratory - Hematology and Cell countson 04-01-2024 HbA1c (Bld) [Mass fraction] 5.0 % 4.5-6.2 [facility] Comment on above: ADA RECOMMENDED LIMI T 4.0 - 6.0ADA THERAPEUTIC TARGET < 7.0ACTION SUGGESTED> 7.0 MLR HEMOGLOBIN A1Con 024 Glucose [Mass/Vol] 97 mg/dL [facility] HbA1c (Bld) [Mass fraction] 5 % 4.5 - 6.2 % [facility] Comment on above: ADA RECOMMENDED LIMI T 4.0 - 6.0 ADA THERAPEUTIC TARGET < 7.0 ACTION SUGGESTED > 7.[address] [facility] No Panel Informationon 04-01 25-Hydroxy Vitamin D Total 22.2 ng/mL [facility] Comment on above: <20 ng/mL Vit D defi cient20-<30 ng/mL Vit D wzwthayjxppj43-481 ng/mL Vit D sufficient>100 ng/mL Potential Toxicity C-Peptide 2.3 ng/mL 1.1-4.4 [facility] Comment on above: C-Peptide reference interval is for fasting patients. Dehydroepiandrosterone Sulfate 122.0 ug/dL 57.3-279.2 [facility] Free Cortisol, Dialysis, LCMS 0.385 ug/dL . [facility] Comment on above: These tests were dev eloped and their performancecharacteristics determined by [facility]. They have not beencleared or approved by the Food and Drug Administration.Reference Range:8 AM 0.10 - 1.204 PM 0.042 - 0.872Performed at: ES - [facility] [address] [place], [place] [id number] Director: Kal Archibald MD, Phone: [phone] Free Triiodothyronine 2.38 pg/mL 2.18-3.[address] [facility] Reverse Triiodothyronine (T3) 23.1 ng/dL 9.2-24.1 [facility] Comment on above: This test was develo ped and its performance characteristicsdetermined by [facility]. It has not been cleared orapproved by the Food and Drug Administration.Performed at: [address] [id number] Director: Katelynn Macdonald MD, Phone: [phone] Sex Hormone Binding Globulin 119.0 nmol/L 24.6-122.0 [facility] Comment on above: Performed at: [facility] [address] [id number] Director: Theron Roblero PhD, Phone: [phone] Testosterone Level 17 ng/dL 4-50 [facility] Plasma serotonin measurement (mass/volume)on 04-01-2024 Serotonin (P) [Mass/Vol] Plasma serotonin measurement (mass/volume) 31-207 [facility] Comment on above: This test was develo ped and its performance characteristicsdetermined by [employer]. It has not been cleared orapproved by the Food and Drug Administration.Performed at: [facility] [id number] Director: Katelynn Macdonald MD, Phone: [phone] Serum estrone measurementon 04-01-2024 E1 [Mass/Vol] Serum estrone measurement . [facility] Comment on above: Range Adult (Premeno pausal) 27 - 231 Menstrual Cycle (1-10 days) 19 - 149 Menstrual Cycle (11-20 days) 32 - 176 Menstrual Cycle (21-30 days) 37 - 200 Adult (Postmenopausal) 0 - 125Performed at: [facility] [address] [id number] Director: Katelynn Macdonald MD, Phone: [phone] Serum or plasma estradiol (E 2) measurement (mass/volume)on 04-01-2024 E2 [Mass/Vol] Serum or plasma estradiol (E2) measurement (mass/volume) . [facility] Comment on above: Adult Female Range F ollicular phase 12.5 - 166.0 Ovulation phase 85.8 - 498.0 Luteal phase 43.8 - 211.0 Postmenopausal <6.0 - 54.7 1st trimester 215.0 - >4300.0Roche ECLIA methodology Serum or plasma insulin mariam urement (units/volume)on 04-01-2024 Insulin Qn Serum or plasma insu stephanie measurement (units/volume) 2.6-24.9 [facility] Comment on above: Performed at: [facility] [address] [id number] Director: Theron Roblero PhD, Phone: [phone] Serum or plasma progesterone measurement (mass/volume)on 04-01-2024 Progesterone [Mass/Vol] Serum or plasma progesterone measurement (mass/volume) . [facility] Comment on above: Follicular phase 0.1 - 0.9 Luteal phase 1.8 - 23.9 Ovulation phase 0.1 - 12.0 First trimester 11.0 - 44.3 Second trimester 25.4 - 83.3 Third trimester 58.7 - 214.0 Postmenopausal 0.0 - 0.1Performed at: [facility] [address] [id number] Director: Theron Roblero PhD, Phone: [phone] TPO Ab Qnon 04-01-2024 Thyroid Peroxidase Antibodies <9 [IU]/mL 0-34 [facility] Thyroglobulin Ab Qnon 2023 Anti-Thyroglobulin Antibody 1.0 [IU]/mL Abnormal 0.0-0.9 [facility] Comment on above: Thyroglobulin Antibo dy measured by Sarah CoulterMethodologyIt should be noted that the presence of thyroglobulinantibodies may not be pathogenic nor diagnostic, especiallyat very low levels. The assay web development consultant has found thatfour percent of individuals without evidence of thyroiddisease or autoimmunity will have positive TgAb levels upto 4 IU/mL.Performed at: [facility] [address] [id number] Director: Theron Roblero PhD, Phone: [phone] Thyroglobulin [Mass/volume] in Serum or Plasmaon 04-01-2024 Thyroglobulin [Mass/Vol] Thyroglobulin [Mass/volume] in Serum or Plasma . [facility] Comment on above: This test was develo ped and its performance characteristicsdetermined by [employer]. It has not been cleared or approvedby [...] assay quantitation limit is 2.0 ng/mL.Performed at: [facility] [address] [place], [place] [id number] Director: Kal Archibald MD, Phone: [phone] BASIC METABOLIC PANLon 01-25 Anion gap [Moles/Vol] 5 mmol/L Normal 5-15 [facility] Comment on above: Performed By: #### C BC, BMP #### [facility] ([id number]) [address] [place] [address] Calcium [Mass/Vol] 8.1 mg/dL Low 8.5-10.5 [facility] Comment on above: Performed By: #### C BC, BMP #### [facility] ([id number]) [address] [place] [address] Chloride [Moles/Vol] 107 mmol/L Normal 98-[address] [facility] Comment on above: Performed By: #### C BC, BMP #### [facility] ([id number]) [address] [place] [address] CO2 [Moles/Vol] 26 mmol/L Normal 22-32 [facility] Comment on above: Performed By: #### C BC, BMP #### [facility] ([id number]) [facility] [place] [address] Creatinine [Mass/Vol] 0.89 mg/dL Normal 0.40-1.00 [facility] Comment on above: Result Comment: METH OD TRACEABLE TO IDMS STANDARD Performed By: #### C BC, BMP #### [facility] ([id number]) [facility] [place] [address] GFR/1.73 sq M.predicted among non-blacks MDRD (S/P/Bld) [Vol rate/Area] 83 mL/min/{1.73_m2} Normal >59 [facility] Comment on above: Result Comment: Reported eGFR is based on the CKD-EPI 2020 equation that does not use a race coefficient. Performed By: #### C BC, BMP #### [facility] ([id number]) [address] [place] [address] Glucose [Mass/Vol] 114 mg/dL High 65-99 [facility] Comment on above: Performed By: #### C BC, BMP #### [facility] ([id number]) [address] [place] [address] Potassium [Moles/Vol] 4.1 mmol/L Normal 3.5-5.0 [facility] Comment on above: Performed By: #### C BC, BMP #### [facility] ([id number]) [address] [place] [address] Sodium [Moles/Vol] 138 mmol/L Normal 134-146 [facility] Comment on above: Performed By: #### C BC, BMP #### [facility] ([id number]) [facility] [place] [address] Urea nitrogen [Mass/Vol] 15 mg/dL Normal 5-23 [facility] Comment on above: Performed By: #### C BC, BMP #### [facility] ([id number]) [facility] [place] [address] COMPLETE BLOOD COUNTon 01-25 Erythrocyte distribution width (RBC) [Ratio] 14.5 % Normal 11.5-15.0 [facility] Comment on above: Performed By: #### C BC, BMP #### [facility] ([id number]) [address] [place] [address] Hematocrit (Bld) [Volume fraction] 30.0 % Low 35-47 [facility] Comment on above: Performed By: #### C BC, BMP #### [facility] ([id number]) [address] [place] [address] Hemoglobin (Bld) [Mass/Vol] 9.9 g/dL Low 11.7-15.5 [facility] Comment on above: Performed By: #### C BC, BMP #### [facility] ([id number]) [address] [place] [address] MCH (RBC) [Entitic mass] 27.8 pg Normal 27-34 [facility] Comment on above: Performed By: #### C BC, BMP #### [facility] ([id number]) [address] [place] [address] MCHC (RBC) [Mass/Vol] 33.2 g/dL Normal 32-36 [facility] Comment on above: Performed By: #### C BC, BMP #### [facility] ([id number]) [facility] [place] [address] MCV (RBC) [Entitic vol] 84 fL Normal 80-100 [facility] Comment on above: Performed By: #### C BC, BMP #### [facility] ([id number]) [facility] [place] [address] Platelet mean volume (Bld) [Entitic vol] 7.7 fL Normal 7-12 [facility] Comment on above: Performed By: #### C BC, BMP #### [facility] ([id number]) [facility] [place] [address] Platelets (Bld) [#/Vol] 267 10*3/uL Normal 150-450 [facility] Comment on above: Performed By: #### C BC, BMP #### [facility] ([id number]) [facility] [place] [address] RBC COUNT 3.58 X10E12/L Low 3.80-5.20 [facility] Comment on above: Performed By: #### C BC, BMP #### [facility] ([id number]) [address] [place] [address] WBC (Bld) [#/Vol] 15.6 10*3/uL High 4.0-11.0 [facility] Comment on above: Performed By: #### C BC, BMP #### [facility] ([id number]) [address] [place] [address] Coding Summaryon 01-26-2024 Coding Summary HTMLBase 64 MqtsgmmaGXw8zGv+PGhlYWQ+ NS3MHKVtJ34rlCXblM1uG4AS TElOSywgQVBQTElOSyIgbmFt VR6isUVfLTKb IC8+QR6gALPoGjxoaPLky2N4 gQS6W14hok4mCEmqyRF3ZDOt TbFuspsvi3cbdKz3CVwkHnfl OyBt VYKkuO14GSW1hD46Du70xEUw xQEtg1jpySe6XoJqCBSeMCY5 nTvmALiad8CxUBRbQ47heZRj c2U6 AXJbfOcuiFRdVoKzpBH1sG8a DYtmwjecc9pxniifPsi7ks87 jYNbf2Q0bKD4W1RuztD0AGSx bGQg KrqxtTIAfY2hmbkbe6gotlho RnZjYZAtNJy0KIj1LDGupPpx BsXjSU49OPX1QSZovbEuI0Ry LWFs tQvjWbN7c1E5Bm4WM0EIQaas I2LFIXGXWWobvFK+GK36px18 R9RlKxzvEft1WTGkHFR9hRN7 aD0n EGCyKKqes7I5mLW9R1MsryJg vr4et3hgDBArNErcB90nzPSg e2O1RZIkhVZ0PBDzaUwaWrFs aG93 Oyc+HGSmqMylu3IrFeuzj1pu h7ftvKa4TfyjLFFdbkRvyLaa ZFX3j2JwPj8dKPBspJL5kIP9 aD0i ZySrHqX5UCwjM804YbNhqBJb TjmpR87jN5JeaND+PHRyPjx0 MBMdnTxgPC8dO4ApKYRuxtrp bGVm tJlgWG4nMHSkbhfsFJSkzG9y CHKxN9u0DlUhJeA5TLmbR6Nt GPYxvjpiCc72kA5tTuJmNnZ9 MGlu G8HpczN9RGAyoJZxQPzxOND4 K08ds3W3JIKrRCWsAVX5dYK5 jU0jgYfxdulotJBbuRnxmjWv dGlj IBvkLVgrS660OBLysVbiGoRp ZGluZyBEYXRlOiAgMTAvMjUv MjAyNDwvdGQ+ASKrMPN3wMsa PSAn mSZcWGvoGe4gyXukrQvkTL0e PZAxrpoqDENpfT4yXGOpxVRz xSwcZL1aVGKinuaoc259EnVj MHB0 VLXmwFYkC8CapK7tBxHoWUJo HBIvC3KpeGExJWceM782CQza LtH0NNEzxsZyM7FuNYBlaRzq OiB0 h8J8Mq8Zp5GaiwijP0GbpCBx PvFsGzldOZk6H7VsNbbteVX+ HX95XXOzMX14ETs5ION7oBpa PSdi MGNqA4AgaS1vWtPoAFEwBOOe Oyc+PHRhYmxlIHdpZHRoPScx KGJpBwNkeWeaZS6nBz6gRZDl LWNv hWdzbGSlOpZno2hpSHRvLIrn MC4xsNizN4UlpUI1AMPif3d2 Ad26P20uT8GjkRF+PGNvbCB3 aWR0 aH6kIqXoEkU3LOmrZ711WfCe kXGeDfzba4xtr0etnBn9QlV8 MGQqimGvtKrwNXC1h0NjVd87 Y29s IHdpZHRoPSIxNSUiIHZhbGln pd5psK4iNm5+LXAezTE4aJD8 yW3jZbRbGdW9GSzxM298IcLk cCIv Ewdnz7vzr1qqdUe1KpMnWULt reOouGufNLT9l8ZjVw20B8Rw uEbuc3ZgCil6hl39nXXha7E5 bGU9 S5BhSAJjyjnfdUNllStbBF8g KPXendooZFGsoF0qOYLqD0w3 FwUsKyZ2EUdmV1RutsZ0JIEy bGQg LRGdqNYYsY4itzvab9jffbcn VhEcMZHuPJr9CPx7LZVbcXjm DiWcRWC0MwY6YDZ2sMMbaM2y bGln chvrzV0qZyh+PKB1yNAxsJNA NT6rLkvstLL+TRGuYDX0aZeq HGbuRMBrlO5iDOXqC3b9QmCu LjA1 JOadQ6XdrhG4UADzhKWqFOYv cFIDbE2yafqxv2wfqhvoBgAg HSDxGWd0WGj6USHzvCdtRxYs ZWZ0 PvO9YBZ8pXYltU3xpNqjmtlw uQ0oIai+DhlewOzaEFB9BPu4 L9XbPxj8UTWqrJopDZ5bdJRa ZGlu Af3jzAppbEwzQY8eTSZruojw h471JvAzk9ciQXMtaWXgEFhu ODD1F95es6H6FOCnZJHsWMM1 dGV4 sU6ogLihaylvmLFojFgawzAv aFeqZNpwJYjvP461HVEwmJsl NeCwKAr8T6YbDps6BYBblPzi ZT0n mOPlTDwhPn1ktQyhyYenKY5o PBVouhogz372GuRxo0puTIJu yFRoNQgfWUF0Y78ca3H3JDNt MDAw YXM3bIJ9fH3kpNspchvjbNAp rZxyuhGxjOreHUerYUpgN173 FTGxoHrmAcJraGb4O2ZnPuz4 ZCBz fWonJV1znLWfCHkxAc4baIvj rKzmYQ8cAEUvhdzia298BeGd a7dqJILrtSEaNApiFGZ9Y73k b3I6 BOIsFHDsSZA5aGB0lV8zoNho bjogbGVmdDsgdmVydGljYWwt HBahL636LCVfmFcqBpWalVtt bnQg GRnnPJa3I3NmRysmeXV+PC90 BMTjNE41sFVfbBIdu1ywiHm4 KhTmZFGrWEP4mMojPOzii2Ii ZXIt R28qxMIgd2F9KLRwrPlmpZKk RbXnaQA8qH2aJWospkwzb2co xthdFualt7flmr65zY30W58n IHdp BPDoHGLqOVPjXFRneWmkdz1o gP8bDt3+ERPouGB3cUD3bM2b VWZwXnR9XOocJ889DgHhtCPh Pjxj p9hzh1abaRe1EhW1FLYagaUi xNybPVL4w0OtIk21A74qTDho JCUeEVUdIFGmFTPucEcvdn5w dG9w Ii8+TGGtbZD8nHM5jI5pMlNd KtZ8QKnkV148RlGppHOkGzrz N16vW7RxyVL+OBVsFnx6YELs dHls BO1msEOnOEdpFk3wILS9GjVl CmRrIYuwJ3JkILFkijodyynn eVJ8BHShGCJufW52Wa3mwQod MTBw zAUEpV3xvmfta8fenobxFmGt IPOwJHg0CDz2DZRemXzpKkWb GYR0OdH9EEI4zCBypK9lwAjv bjog fY6wQ4ZgIJCdihidPf70aL3e LlIeJxW2WBkcZyj+O10TI0yF LCBBTUFOREEgREFXTjwvdGQ+ PHRk BBH9qPitQHhgWTFtmS8nGTAx N6z5TpLkOkM8DKgoA2XfYNNp jtovMa28uD3mDaZcCgH7PIsg O2Zv ilZ5REDpgQIxSYdfWNZ7N59y d6V2FROjCVWfUQO4zEP0tG3v bGlnbjogbGVmdDsgdmVydGlj YWwt ZBjsX231IGVlfJkkEfQ0RbMx EgH5HAR0Z4BuFki2QEGogUfx KY0ytCUuJOnuDq8vxGlzxJsb MC4w LZCfbuuxISSlxC6iKPFeoVKg rAiaCW1vLQKpvmynf810UjIr QRA6RWEcfTLxQ8RsbM3qBtKv MDAw WYOuT2ZdnHZoYMhnB888WUlg GrH5VPBkxzLxB2XbNJFcqOka PoS1w6S3Kj61VYEJSPEotwfb dGQ+ HTPaPQU3aWowJLghCJWosY6m XVJdN5l9OrEoQiS4XPcmI8Dl LCTvnxaxPd83vU7sUnCaHnD5 MGlu Y2KsqsV2OLRucKJhYVczRYO3 I98gs7O6DKLvAIJdSWH0pPP2 kW3kgMgcfnpbqYNerYyuaiKv dGlj WWmnNIsrK408PZVryOxbGwCR TUFMRTwvdGQ+YDEiZAK2wHel JGdgNREnwD0fFPHmA1a4ZlIl LjA1 IBevI0FlXJZqjbklCh66hK5p WqIdLeV0JCxvM2LegsY7AENo dXFhEGyxLEO9P57ud1E5QQPo MDAw MSA0zGO4cD1kcSknrpirhCPz mCrvmkBbvVsnMIlwFUmeF145 TLWjwXhsKjMgTVZdWF3kkOgg dGQ+ TX32au65R4AwFlibVma1LLCb RIR0uSR7mY9jDXNjYVlnj5L5 oKT5U3IwvpTtve3kf3fcIWPj ZTog R45lbOQdi0P9DDKzrSR5HQKu qChtFqGuiV56Tof+PGNvbGdy a9AeRpbmk1cdy1zcqWk6QeWv JSIg bsSznGpsKVV4u3SfMw41Y50p IHdpZHRoPSIzMCUiIHZhbGln um7wxI6bBd9+BZOeiTG9vAV3 aD0i NqTnPuI9KJjnQ743VuOkxMLa Gkclg8fdh4hcuVk0RkPqSFFq jnMrdRzhEDE2n9ZrLe14K3Dv bGdy f0MkClh7lu19qAUnd7T7sWX0 T4XaDSRbzljjsNOdfGfyDH0t VKOursloNPEtrJ9nBLMcO7x8 OiAw MfU6AIzwZ6NjbqU7RDHlaVXh LEJcnLQKyI1bifpsz3bwivsh HeCsAWCdTBv3IKq7KQUopApx OiBs JVJ5JsC1MJO6jGFxoA3cpJvd xltypE8vMnn+VNj5u4xsoREa JA8gySC4IF46US26nQJgg6A4 bGU9 U4WcZBMkygxkppgqcCX1EAAj XEYxaK01Dd4elQjjXd0mSURq RLB0ILSqqKHwQ2IfkL4mVyVg MDAw RRWhG5XqrDDxULniZ751ZXjg OqC6MYNiirAlY1HsVZAshNxk WcD3p8R1Sq9ECH17FR96JY40 dGQg c1L0rZR2B5QpGTCbanukjelm mQW2SIWkBHAvrR61Iz8guCci Vf1fGGAiAIJ6TKXzcZLrH3Nv bG9y XaRaGNQhFVMrG9XniRRlERyv C682AAtlFaP9LIGqywJxV9Ml WDLnfFksMqA3i4T4Wo0CWg33 PC90 FK38zXPqq8I0yXZ8W3EtMDHh yszlzugrjLR9PZAhGYGldL59 Xk7xjRtzKh1zCAGsPKZ1CJCi bWVz X7QylP3kEeSvIQJlVPBfV7Ge fCOmGIwoE825DFhaYwT5XPSu ryLoY4TcHEXuzAhgRpL2n9N2 Jz5Q PIzzdwz2C5QjDpbjzEK+PC90 HPAiLA67kNJahJJjb0kscFf3 KqRhUYQgUQP4vHqiLTvjb2Fn ZXIt Y29 (more content not included)... [facility] Coding Summary HTMLBase 64 DfuyvtuwIKa4qTj+PGhlYWQ+ JO3MIZEaX85iaQZtbZ0tC1QC TElOSywgQVBQTElOSyIgbmFt XP5xoOEpQNLy IC8+QK0iAWCjIgivqYOgq9D3 rSG7I58ild9hDCcqgGS5XMFm TiPinznht4eryPo5MZteHlsd OyBt TUKtrM51DPY6yK09Mj01vHVx tEGby8idoAa5SsHcHHZvSEK5 oHfgYSoeu2VgDDCcC62sjQUd c2U6 RBKyxAznfUHrQzQgzSB6yH6o BKacjopfb2askakwPvp5wf19 tATau3Y7iWG5K7BpncA3KPHq bGQg ZxrzmZZNhG1jgrric1iqyliy WpOiJJTkRIy5WWn2HOJgvLub VtIoNW29VDH9COTarsWuW8Jq LWFs lSglSbN8p6D6Vi7IU3TATopi R9ERXGKOYRzzxKX+JE65ib46 R5SkQoopTde8PUBbKLK0qVU1 aD0n LMJoQPilj0F7mRP1E5MiemCt ut7dn7wgWVBeZSvxN60puYOg b6C2ECMdjUZ2YAEtbPbrYvAf aG93 Oyc+GPGbgUolz9CjBwdtz5pw v1srcYd9XhicISKkvgJkoSsk JLK5k9YmHi0bKXVeuMU7nQL9 aD0i JkXxEoL6OHyyC013PbDsqZSw UaagS50dR8OccOC+PHRyPjx0 XEDgqQbmXS0zJ8VwHVQtchkg bGVm uEebND6rRMOwzjckYBUojJ1f ASOnW7c1KlVuGgD2SUaiH9Vr PGCgcwyoMh32aI6yXxDlHpY0 MGlu C3LyypD6BUFzwGCmQSoqFBA7 R13nr3D3ZNBlIBHvZSQ0hTX8 mW5zsHwldmjdvZBkkOofpnEo dGlj BZdcMEgsH220JVPvcGitSjAd ZGluZyBEYXRlOiAgMTAvMjUv MjAyNDwvdGQ+SDDxUMA0mXop PSAn jKUwRZzlUh2eoXsykEubMI1y OKNbzcxzFZTckA0fUBCcgMMc qKufZM2iVRBmbtjil448YwOc MHB0 IDZzfVQxV6GmlF4xGmFnGQQh YABhM6ZnhZMzXOuwR951KKzw OyL8EBLgnqAzS1UxWNNyiMwo OiB0 e7M0Zt2Sx9IwjfrdA6JcgUFp GeRxYmroYPt7A3RhGtmveHK+ HQ91YNWaCM15OUu4QXS7rZqw PSdi VOVxG6LapN5fAzYzLWFoRPZc Oyc+PHRhYmxlIHdpZHRoPScx BPEvAkIpwHyrVX5aZe2kLITf LWNv zMkafHRdWpKal6ndCQJaHQwn ZJ0tmRdpW4BeoNP3QNXgo4n8 Wu57C95hL3KkfCC+PGNvbCB3 aWR0 cB0kYpAxVyY2WXyoY148FmSz pNTxVsenc6rby8qzsOh3OfT5 MGWcblVgrTwrUJD2x6ZxXf32 Y29s IHdpZHRoPSIxNSUiIHZhbGln uz6uyN6mZm1+MSFcgRD0gIF9 yE5wPrOsFwF6CActG566FrRx cCIv Iwaee6bhp3ngvXm1NjWmBXNa caMzpMiqNFH7t6XoHh27W6Ut pMktc9UhJvq9gn42yGZqc1V5 bGU9 C9GgHUTkenoxtYCjeNjoHB8m JVFeaydcAENtcQ9fYSHmA4o5 JbYrHpZ8ZFziF6ZruzS9UTHm bGQg JBRjfPCCnD5pixpwx7hcjffl JdZmVRXdGKm6ZNz1VJYijNip EnJiSBA8IoN8PKH4uEMkyJ2r bGln eimroJ9rRtd+VMK4nQXadVMF QH7mMdisuUV+HIBnGAF2fFql LLpvSYRalF5uGREiM4f9NaPt LjA1 BMmmO3ZiqbX7SIWivPLmVIXs aXRQmC5mcwezp1jeaodiIyWn EZMrQFx4DNj3DAWosFfkLoKr ZWZ0 BjL1WQS2rGQqtD3lgSkjkfif jK4eSgj+NidziCtkJRQ2RBm6 S9KuQxh0PXBmfLsiRX1kbODi ZGlu Mp4laHgmvCztKG2wYKWrhvjs o451YvLrb9mmSIQolCKxMOtz XZP7R27kq9G2IDGxIVVxZYY8 dGV4 wT3lrTcgxsssyHWgyNabxxDk wVveITmnUWcrB337VARlmSoi NkMiSUd6N1HmYfj2XLLceIje ZT0n cDVyJRyqKt5mhUbdvLilRB2i MKEelerfj109MsLnl0rdLTZy hOEkXOqwUNJ7K63ja7X2YYYx MDAw MUI4lKR2sT6usQbigmxvxHCl mCjcmvGatXtyOFvaEEckQ495 BNTejZduXgBzaDd0F9SgRav7 ZCBz dUuvXD1xtETjIWxpFx8rjBbe iNblAY3jYNTtkufhb329DoPm o6kzOTTzzTPqSCmrMTC2H99w b3I6 LTGtMBNfKMA6vRN9jE3gvTkr bjogbGVmdDsgdmVydGljYWwt DGceI255RIXngWupFkBycLzy bnQg FDyiYWv2L5AjDshlzWN+PC90 DAZyZT75iHZgnOFun3mgqAc9 EtZaLFFfFGG1tXhdNXbqu1Gd ZXIt E70waSXcj2P8YIWwgKbirUQp KrRyxMA5rN9tDYwgprkvq0he rnejWohyn7twad21vG92C90l IHdp BUGtNJJiYCNrZLVjoQfzyu9t dE9sAs8+ICHllGZ5jNV8nI3h DVCdWhV8JRuqZ182DkRhkOTo Pjxj o3shq1xffYp2SuQ1LCEznnNl aWtiJMP2a4LbXm49D79kIWrs NFXwUWZaBXRaWMYmfXzbou3a dG9w Ii8+LEQqfMJ9sJJ0jG3rSvAp ShM3OQgrH139MtLpzAExFodz B86fT8XejFF+TZIgNux3CGLk dHls BN6oxSMdMBwgDi8xTBU6UdAu JbGcMIbiP5PsNNGujeoxxymy bRF0NQJpGEFiiX62Ya0vjMnb MTBw iRNQhP3vgutwk4xzvmshShXn CESjFVh3CBa1DCMydEncWdEm IFF0PnV3NIB4fNAeyM1xcTkz bjog qZ1vZ8ZvDUBhkpgbZp94bD8d VgIiPbE8HBcuBzz+Z17JT7mF LCBBTUFOREEgREFXTjwvdGQ+ PHRk FAW2bRwvMRzrZYIqqU3jWISl O6p3TzKuAdF2DHexZ7IkNIKw aedeQo22hL3zUcLkLgU0UQaf O2Zv hdR3NNYmoXCiQTloZMZ1T08w u9V1RZVhCKMwJPY9ySA8jT8w bGlnbjogbGVmdDsgdmVydGlj YWwt CRehO700VUKdoRorCkA6CcAk LkO4MXI7E6JiKzo6JFXzsIhk CU8yfLPnDXoiKz1nlGdkrDie MC4w WVLulcyqPLHpmR2mGCAloLKm qOjhFU1cYUEynbakv912GfJa VJS9CHCcjSAnM1YzlE0vFrUk MDAw IILeV8HfuIClHFamK864IOji GkE4PJTwniSbI3BpHDAirDnr GqX6s6J5Gm17TNHKXVIvrqyy dGQ+ AAOnKMJ5yVuyUXikZHCwfO0w NKUaZ9m3NnKsNcP9MVewT7Fr UKLwasxkOl73vC4fQfBuRnV7 MGlu B3TrspR0OGAcsTHhLAedUOG4 X58ke5D9UANsXGPjBNY1oDG3 dZ9wfMdtcocwsPPruUyjniKm dGlj HSxtEMwiI951LMFroSwaDaEB TUFMRTwvdGQ+LOLrGJK1xYcb IEjwYDKheS6bGKHzX1b5TlUw LjA1 BVwhU5CkLISsrraiCh43hO6y SdPtYpP5KIfeP1PvbxX1LHFz kVEdMRsiCYL5Z61px4E4ITQk MDAw YRM4xMZ6oT4hsTczjtwlzLDl gTmmulLhzZdrOZcoAIujS395 ACThuKsyWfYwGAVhNJ0zzFxn dGQ+ QN52hm13Z0VtJtveJld3TPOv AWW4pBN6zP6zWJMqQJmtg9Y5 wWI5S0CjgdExjg8lq8aqRFPa ZTog V28wcZXuj3D5VDIatVT7MCMq mYdlOkLqhZ08Dfv+PGNvbGdy o4CmEnypn8jiw0lrdKb5DgYn JSIg faKvrQvuMKN5w7BuQn19K30s IHdpZHRoPSIzMCUiIHZhbGln gf8vzV3pEl9+YUNssUY0cQO2 aD0i ThCjDgY2OZhzB728UyLswXQv Gultk4ecx3dzbAi8GfNrDAXo rjBefCwkDNF0b7UpVb33B2Ds bGdy y7TjEwj7ly64lOSdl0D1rOC0 I7GaQHUbzxrpjHCnbDomNB3r CQDrxpfgFAKleW7eKPEtG1h2 OiAw WxI7KVmrL4PispY6KLTxnZGe SIMwoKZQgF0hlvuhn3avkkpq FeKhZLZsCTl3MKx4MVJcbUth OiBs SID7TfR4XYT9zTSfaR2kvBdx yilcxY4sIhu+FDs9b9moyBIm QX0zwDZ5HK90IW74zZKci3C6 bGU9 J2RlSBSovlpmolluwET5DVLg BLAoxP83Sd1etIlsZs9nKZSv QVP9SUVgtJBvP6SfyR9xWpMk MDAw JBArW4JdtVXaTMrcB632APji SeY0MQMqpmGnF2NxXECdtJqz GnG0t8C5Ve2WWJ55ZL42GQ76 dGQg n9Q9vTB5S5YeWTBqmkkmbogs wPU5CLNfFCYbgL65Ro1fmLpj Kz2nHCLtMFY0KDJhhDGvA5Dz bG9y IoCqTRRzJCNqN5RhnZTcBKci T875BPtgYxF0OMQayeUsW7Wr UWSioMyuAzQ3r1P0Bf1BTz85 PC90 UD09hLTvt6U2jNY0G4BqNZKf wyfukgrroVI7DZPtSBDlmM54 Sl8ndNvdMw6lCRByEFG6ESGe bWVz V9QajD9uXfYrVHZmGWYuN4Ux kTVkBWbeE657LRtmKwM9EJBg fyOsM8EoSLFhtOsaKaJ1n1Q6 Jz5Q CFpyymy2J8OvLmyxsNP+PC90 EMWpHJ15rIEnjNCsa9nieMz3 TeZyFYKvICM7kZhxPVipv3Sw ZXIt Y29 (more content not included)... [facility] Consent Formson 01-15-2024 Consent Forms [id number] TIFF [facility] .Auto Diff 1on 01-14-2024 Auto [place] % 6 % Normal 04-14 [facility] Comment on above: Performed By: #### 1 [id number], 1697679, 7234869142, 9701016800, 3700778, 44078436, 9769986592 ####[facility] (DEFAULT)[address] [place] [address] Baso Abs# 0.0 x10 Normal 0.0-0.2 [facility] Comment on above: Performed By: #### 1 [id number], 1786529, 8966193075, 4390337214, 7812918, 77351866, 0999112244 ####[facility] (DEFAULT)[address] [place] [address] Basophils/100 WBC (Bld) 0.7 % Normal 0.2-2.0 [facility] Comment on above: Performed By: #### 1 [id number], 0572159, 0739819727, 1775316874, 5242868, 57648387, 4194531018 ####[facility] (DEFAULT)[address] [place] [address] 60831 Eos Abs# 0.1 x10 Normal 0.0-0.4 [facility] Comment on above: Performed By: #### 1 363245199, 9257097, 9488048517, 6341548686, 4004104, 76409501, 3889373162 ####[facility] (DEFAULT)[address] [place] [address] 31739 Eosinophils/100 WBC (Bld) 1.3 % Normal 0.9-4.0 [facility] Comment on above: Performed By: #### 1 [id number], 4718466, 0375302934, 0260780903, 6858379, 67324384, 0617108851 ####[facility] (DEFAULT)[address] [place] [address] 02060 Lymph Abs# 1.6 x10 Normal 1.3-2.9 [facility] Comment on above: Performed By: #### 1 827378167, 7048797, 7140905740, 6229021789, 8356251, 33570663, 3970877826 ####[facility] (DEFAULT)[address] [place] [address] 04472 Lymphocytes/100 WBC (Bld) 25 % Normal 14-48 [facility] Comment on above: Performed By: #### 1 [id number], 6604053, 9348978149, 7254591945, 2488710, 98111765, 5170521513 ####[facility] (DEFAULT)[address] [place] [address]94 [place] Abs# 0.4 x10 Normal 0.0-0.8 [facility] Comment on above: Performed By: #### 1 598426145, 7004329, 4676617528, 5589110213, 6984087, 71255778, 7835325565 ####[facility] (DEFAULT)[address] [place] [address] 27288 Neut Abs# 4.2 x10 Normal 1.5-9.2 [facility] Comment on above: Performed By: #### 1 212405274, 5987752, 6520747514, 7099532569, 9777401, 29291240, 7143242689 ####[facility] (DEFAULT)[address] [place] [address] 53729 Neutrophils/100 WBC (Bld) 67 % Normal 44-88 [facility] Comment on above: Performed By: #### 1 713392428, 0195806, 2579313671, 6636961427, 2108152, 06530303, 6629511571 ####[facility] (DEFAULT)[address] [place] [address] 36466 Basophils Auto (Bld) [#/Vol] on 01-14-2024 Basophils (Bld) [#/Vol] Automated basophil count 0.0-0.2 [facility] Basophils/100 WBC Auto (Bld) on 01-14-2024 Basophils/100 WBC (Bld) Automated basophil % 0. 2-2.0 [facility] CBC w/ Auto Diffon Erythrocyte distribution width (RBC) [Ratio] 14.5 % Normal 11.5-15.0 [facility] Comment on above: Performed By: #### 1 258063280, 9852347, 2888777370, 4064073940, 9073507, 60822810, 0965759320 ####[facility] (DEFAULT)[address] [place] [address] 30874 Hematocrit (Bld) [Volume fraction] 37.9 % Normal 33.7-40.4 [facility] Comment on above: Performed By: #### 1 614315138, 3397709, 3992819339, 7189256741, 1976361, 51194745, 7997316135 ####[facility] (DEFAULT)[address] [place] [address] 93124 Hemoglobin (Bld) [Mass/Vol] 12.3 g/dL Normal 11.3-15.9 [facility] Comment on above: Performed By: #### 1 850957874, 7525219, 8108332855, 3984196644, 6543613, 95119942, 4709596776 ####[facility] (DEFAULT)[address] [place] [address] Man Diff? Auto Invalid Interpretation Code [facility] Comment on above: Performed By: #### 1 049600849, 1273636, 4230924866, 9990476429, 3067100, 92295676, 4225165654 ####[facility] (DEFAULT)[address] [place] [address] MCH (RBC) [Entitic mass] 27 pg Normal 24-34 [facility] Comment on above: Performed By: #### 1 543030968, 8714422, 8860101111, 4393764620, 2479906, 88425128, 2995640984 ####[facility] (DEFAULT)[address] [place] [address] MCHC (RBC) [Mass/Vol] 33 g/dL Normal 26-37 [facility] Comment on above: Performed By: #### 1 035560953, 2287752, 8048336326, 9285859526, 0159587, 71417311, 8136809286 ####[facility] (DEFAULT)[address] [place] [address] 07198 MCV (RBC) [Entitic vol] 84 fL Normal 81-100 [facility] Comment on above: Performed By: #### 1 181505259, 2337492, 9560907716, 8157758881, 3371631, 07472997, 6411667566 ####[facility] (DEFAULT)[address] [place] [address] Platelet 270 x10 Normal 138-427 [facility] Comment on above: Performed By: #### 1 417932886, 9915538, 1329365585, 8870418587, 5397271, 74415181, 8888766708 ####[facility] (DEFAULT)[address] [place] [address] Platelet mean volume (Bld) [Entitic vol] 7.4 fL Normal 6.3-10.2 [facility] Comment on above: Performed By: #### 1 506101549, 7504610, 8443367173, 5109309068, 0320810, 98139128, 7552023580 ####[facility] (DEFAULT)[address] [place] [address] 03465 RBC 4.53 x10 Normal 3.70-5.30 [facility] Comment on above: Performed By: #### 1 791532270, 7173324, 1141987173, 1024612947, 9132063, 86188118, 8123511545 ####[facility] (DEFAULT)[address] [place] [address] WBC 6.3 x10 Normal 3.5-10.5 [facility] Comment on above: Performed By: #### 1 932387378, 7168125, 7452468951, 3848849916, 6652950, 42266889, 8414045502 ####[facility] (DEFAULT)[address] [place] [address] Standardon 01-14-2024 Breakpoint Chem Normal [facility] Comment on above: Performed By: #### 1 497238702, 3185917, 9496442056, 3132878491, 5869396, 62995499, 0977072400 ####[facility] (DEFAULT)[address] [place] [address] 53618 eGFR Non AA >60 Invalid Interpretation Code [facility] Comment on above: Performed By: #### 1 682850419, 7315932, 7059053679, 6340758396, 1901396, 98677855, 8486092317 ####[facility] (DEFAULT)[address] [place] [address] 69511 eGFR AA >60 Invalid Interpretation Code [facility] Comment on above: Performed By: #### 1 198077028, 2730881, 8149675257, 2323060625, 7888930, 44463400, 8022139948 ####[facility] (DEFAULT)[address] [place] [address] 46980 Albumin [Mass/Vol] 3.6 g/dL Normal 3.5-5.0 [facility] Comment on above: Performed By: #### 1 708471893, 0135704, 1549000358, 8272056177, 9474449, 63295003, 8958699811 ####[facility] (DEFAULT)[address] [place] [address] Albumin/Globulin [Mass ratio] 1.2 {ratio} Low 1.4-2.6 [facility] Comment on above: Performed By: #### 1 294945385, 8324863, 6492367470, 3418426413, 0475140, 95888817, 4016447014 ####[facility] (DEFAULT)[address] [place] [address] Alk Phos 73 IU/L Normal 32-91 [facility] Comment on above: Performed By: #### 1 725237197, 8858690, 3951523172, 0460274227, 4776659, 25402255, 3997146337 ####[facility] (DEFAULT)[address] [place] [address] ALT [Catalytic activity/Vol] 16.0 U/L Normal 14.0-54.0 [facility] Comment on above: Performed By: #### 1 848667169, 0106708, 8900688039, 1939301941, 4763921, 14194602, 4219601815 ####[facility] (DEFAULT)[address] [place] [address] 00709 Anion gap [Moles/Vol] 6.9 mmol/L Normal 5.0-19.0 [facility] Comment on above: Performed By: #### 1 767918584, 6412332, 3775680487, 2957863984, 0660562, 99118554, 1875279066 ####[facility] (DEFAULT)[address] [place] [address] 26862 AST [Catalytic activity/Vol] 19 U/L Normal 15-41 [facility] Comment on above: Performed By: #### 1 381990456, 4455327, 3918666779, 1282448166, 8429073, 03033867, 8127895102 ####[facility] (DEFAULT)[address] [place] [address] 90801 Bili Total 0.2 mg/dL Low 0.3-1.2 [facility] Comment on above: Performed By: #### 1 726111644, 9805489, 7462974889, 3307236375, 5198734, 74598520, 8936535289 ####[facility] (DEFAULT)[address] [place] [address] 39674 Calcium [Mass/Vol] 8.4 mg/dL Low 8.9-10.3 [facility] Comment on above: Performed By: #### 1 675979318, 1491988, 3126259676, 4335865152, 3971221, 89317385, 6193685596 ####[facility] (DEFAULT)[address] [place] [address] 64377 Chloride [Moles/Vol] 108 mmol/L Normal 101-111 [facility] Comment on above: Performed By: #### 1 458299877, 0650062, 2578353921, 8835665831, 2499306, 28730326, 7615905851 ####[facility] (DEFAULT)[address] [place] [address] 09858 CO2 [Moles/Vol] 24 mmol/L Normal 21-32 [facility] Comment on above: Performed By: #### 1 659793083, 1676184, 0417798701, 1068502355, 5144494, 53441418, 8954095717 ####[facility] (DEFAULT)[address] [place] [address] 81864 Creatinine [Mass/Vol] 0.78 mg/dL Normal 0.60-1.30 [facility] Comment on above: Performed By: #### 1 211733340, 8757227, 9488391254, 1213751441, 2931206, 39739489, 9155472429 ####[facility] (DEFAULT)[address] [place] [address] 74675 Globulin (S) [Mass/Vol] 2.9 g/dL Normal 1.5-4.3 [facility] Comment on above: Performed By: #### 1 892605453, 5848961, 7931287532, 7902082452, 5436848, 12030592, 4747636760 ####[facility] (DEFAULT)[address] [place] [address] 05625 Glucose [Mass/Vol] 88.0 mg/dL Normal 74.0-118.0 [facility] Comment on above: Performed By: #### 1 749480319, 3240266, 9162638503, 2594632186, 1949825, 30274078, 6991185833 ####[facility] (DEFAULT)[address] [place] [address] 37281 Osmolality 270 mOsm/L Invalid Interpretation Code [facility] Comment on above: Performed By: #### 1 254097818, 3173497, 4942422623, 8501337268, 1186085, 63261789, 1754368682 ####[facility] (DEFAULT)[address] [place] [address] 96559 Potassium [Moles/Vol] 3.9 mmol/L Normal 3.6-5.1 [facility] Comment on above: Performed By: #### 1 308559476, 9880129, 7819248388, 5814455011, 5994721, 02874626, 7962545787 ####[facility] (DEFAULT)[address] [place] [address] 53887 Protein [Mass/Vol] 6.5 g/dL Normal 6.5-8.1 [facility] Comment on above: Performed By: #### 1 144266185, 4722470, 6866530516, 6676293619, 8210744, 27186073, 0510431821 ####[facility] (DEFAULT)[address] [place] [address] 62248 Sodium [Moles/Vol] 135.0 mmol/L Low 136.0-144 . 0 [facility] Comment on above: Performed By: #### 1 826394676, 4324856, 2701687388, 6983959426, 4116841, 80243250, 6756901873 ####[facility] (DEFAULT)[address] [place] [address] 40583 Urea nitrogen [Mass/Vol] 15 mg/dL Normal 8- [facility] Comment on above: Performed By: #### 1 176082436, 5321736, 2357411597, 2624885836, 9473464, 58540850, 4644759263 ####[facility] (DEFAULT)[address] [place] [address] Urea nitrogen/Creatinine [Mass ratio] 19.2 mg/mg High 4.6-16.2 [facility] Comment on above: Performed By: #### 1 255518664, 2472502, 0439664707, 2086292125, 2650837, 20316912, 8692993880 ####[facility] (DEFAULT)[address] [place] [address] [address] angiography head [...] DO 01/14/24 8:11 am Technologist: FREEMAN Goldstein [facility] CT Head or Brain w/o Contras [...] MD 01/14/24 6:53 am Technologist: KALYAN Goldstein [facility] ED Clinical Summaryon 2023 ED Clinical Summary [facility] - Emergency Department [address] [place], [place] [id number] ED Clinical Summary PERSON INFORMATION Name: KARUNA DUMONT Age: 43 Years Sex: FEMALE : 1980 MRN: Acct#: Visit Reason: Headache; HEADACHE Arrival: 01/14/2024 04:59:27 Discharge: 01/14/2024 09:46:00 LOS: 000 04:47 Check In: 01/14/2024 04:59:27 Checkout:01/14/2024 09:46:00 Address: [address] [place] [address] PCP: Johnathon Winter MD PROVIDER INFORMATION Provider Role Assigned Unassigned Dot Cantu CUFF MAKER Nurse 01/14/2024 05:00:50 Santy Mckeon MD ED [...] evaluation of headache. Onset of headache this manager body. 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 Stated headache is [...] Past Substance Use (more content not included)... [facility] ED Note - Physicianon 2023 ED [...] evaluation of headache. Onset of headache this manager body. 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 Stated headache is [...] Past Comment: rarely - 03/09/2023 11:23 - Reyna Alvarado RN 01/14/2024 Alcohol Use: Past Substance Use 08/23/2023 [...] Plan Diagnosis Sudden onset of severe headache (KHO03-QM R51.9, Discharge, Medical) Headache, unspecified (OEF84-WC R51.9, Medical) Plan Condition: Improved, Stable. Disposition: Disch (more content not included)... Normal [facility] ED Patient Summaryon 024 ED Patient Summary [facility] - Emergency Department [address] [place] [address] PATIENT DISCHARGE INSTRUCTIONS Patient Information Name: KARUNA DUMONT Age: 43 Years Date of : 1980 Reason For Visit: Headache; HEADACHE Arrival Time: 01/14/2024 04:59:27 Primary Care Physician: Johnathon Winter MD Attending Physician: Santy Mckeon MD Comment: Visit Diagnosis: Diagnoses This Visit Headache (38225833) Headache, unspecified (R51.9) Sudden onset of severe headache (R51.9) The Pharmacy at [facility] is open Monday through Monday from 9A [...] alcohol and/or drug addiction problems; contact the [facility] 24/10 Crisis Hotline -Text 5OAID jx [phone]. If you received any narcotics, sedation, or [...] legal documents With: Address: When: Johnathon Winter [address] [place] [address] [place] [address] Business (1) Within 2 to 4 days [...] and treatment you received today in the [facility] Emergency Department were for an urgent problem and are not intended as complete care. It is important for you to follow up with a doctor, nurse practitioner, or physician?s pharmacy innovation assistant for ongoing care. If your symptoms [...] so we can reach you if necessary. [facility] Emergency Department has provided you with a complete list of medications post discharge. Please inform your machine deicer element winder/provider of your visit and for further instruction [...] amine (amphetamine-dextroa (more content not included)... Normal [facility] Eosinophils/100 WBC Auto (Bl d)on 01-14-2024 Eosinophils/100 WBC (Bld) Automated eosinophil % 0.9-4.0 [facility] Erythrocyte distribution wid th Auto (RBC) [Ratio]on 01-14-2024 Erythrocyte distribution width (RBC) [Ratio] Erythrocyte distribution width [Ratio] by Automated count 11.5-15.0 [facility] Estimated glomerular filtrat ion rate (GFR) non- Americanon 01-14-2024 GFR/1.73 sq M.predicted among non-blacks MDRD (S/P/Bld) [Vol rate/Area] Estimated glomerular filtration rate (GFR) non- [facility] Extra Greenon 01-14-2024 Tube Collected Yes Invalid Interpretation Code [facility] Comment on above: Performed By: #### 1 [id number], 8203367, 3947258417, 1978637899, 3412112, 37719468, 6704470655 ####[facility] (DEFAULT)[address] [place] [address] Globulin Calc (S) [Mass/Vol] on 01-14-2024 Globulin (S) [Mass/Vol] Serum globulin measurement by calculation (mass/volume) 1.5-4.3 [facility] Hematocrit Auto (Bld) [Volum e fraction]on 01-14-2024 Hematocrit (Bld) [Volume fraction] Hematocrit [Volume Fraction] of Blood by Automated count 33.7-40.4 [facility] Hemoglobin [Mass/volume] in Bloodon 01-14-2024 Hemoglobin (Bld) [Mass/Vol] Hemoglobin [Mass/volume] in Blood 11.3-15.9 [facility] Laboratory - Chemistry and C hemistry - challengeon 01-14-2024 Albumin [Mass/Vol] 3.6 g/dL 3.5-5.0 [facility] ALP [Catalytic activity/Vol] 73 U/L 32-91 [facility] ALT [Catalytic activity/Vol] 16.0 U/L 14.0-54.0 [facility] AST [Catalytic activity/Vol] 19 U/L 15-41 [facility] Bilirubin [Mass/Vol] 0.2 mg/dL Low 0.3-1.2 [facility] Calcium [Mass/Vol] 8.4 mg/dL Low 8.9-10.3 [facility] Chloride [Moles/Vol] 108 mmol/L 101-111 [facility] CO2 [Moles/Vol] 24 mmol/L 21-32 [facility] Creatinine [Mass/Vol] 0.78 mg/dL 0.60-1.[address] [facility] GFR/1.73 sq M.predicted MDRD (S/P/Bld) [Vol rate/Area] mL/min/{1.73_m2} [facility] Glucose [Mass/Vol] 88.0 mg/dL 74.0-118.0 [facility] Potassium [Moles/Vol] 3.9 mmol/L 3.6-5.[address] [facility] Protein [Mass/Vol] 6.5 g/dL 6.5-8.1 [facility] Sodium [Moles/Vol] 135.0 mmol/L Low 136.0-144 . 0 [facility] Urea nitrogen [Mass/Vol] 15 mg/dL 8-26 [facility] Urea nitrogen/Creatinine [Mass ratio] 19.2 mg/mg High 4.6-16.2 [facility] Laboratory - Hematology and Cell countson 01-14-2024 ESR (Bld) [Velocity] 8 mm/h 0-20 [facility] Leukocytes [#/volume] correc mini for nucleated erythrocytes in Blood by Automated counon 01-14-2024 WBC corrected for nucl RBC Auto (Bld) [#/Vol] Leukocytes [#/volume] corrected for nucleated erythrocytes in Blood by Automated coun 3.5-10.5 [facility] Lymphocytes Auto (Bld) [#/Vo l]on 01-14-2024 Lymphocytes (Bld) [#/Vol] Lymphocytes [#/volume] in Blood by Automated count 1.3-2.9 [facility] Lymphocytes/100 WBC Auto (Bl d)on 01-14-2024 Lymphocytes/100 WBC (Bld) Lymphocytes/100 leukocytes in Blood by Automated count 14-48 [facility] MCH Auto (RBC) [Entitic mass ]on 01-14-2024 MCH (RBC) [Entitic mass] MCH [Entitic mass] by Automated count 24-34 [facility] MCHC Auto (RBC) [Mass/Vol]on 01-14-2024 MCHC (RBC) [Mass/Vol] MCHC [Mass/volume] by Automated count 26-37 [facility] MCV Auto (RBC) [Entitic vol] on 01-14-2024 MCV (RBC) [Entitic vol] MCV [Entitic vol ume] by Automated count 81-100 [facility] Monocytes Auto (Bld) [#/Vol] on 01-14-2024 Monocytes (Bld) [#/Vol] Automated blood monocyte count 0.0-0.8 [facility] Monocytes/100 WBC Auto (Bld) on 01-14-2024 Monocytes/100 WBC (Bld) Automated monocyte % 1- 12 [facility] Neutrophils Auto (Bld) [#/Vo l]on 01-14-2024 Neutrophils (Bld) [#/Vol] Neutrophils [#/volume] in Blood by Automated count 1.5-9.2 [facility] Neutrophils/100 WBC Auto (Bl d)on 01-14-2024 Neutrophils/100 WBC (Bld) Automated neutrophil % 44-88 [facility] No Panel Informationon 01-13 Add Manual Differential Auto Auto F [facility] Eosinophils # (Auto) 0.1 x10 0.0-0.4 [facility] Osmolality 270 mOsm/L [facility] Platelet mean volume Auto (B ld) [Entitic vol]on 01-14-2024 Platelet mean volume (Bld) [Entitic vol] Platelet mean volume [Entitic volume] in Blood by Automated count 6.3-10.2 [facility] Platelets Auto (Bld) [#/Vol] on 01-14-2024 Platelets (Bld) [#/Vol] Platelets [#/vol ume] in Blood by Automated count 138-427 [facility] RBC Auto (Bld) [#/Vol]on RBC (Bld) [#/Vol] Erythrocytes [#/volu me] in Blood by Automated count 3.70-5.30 [facility] Sed Rateon 01-14-2024 Sed Rate 8 mm/hr Normal 0-20 [facility] Comment on above: Performed By: #### 1 [id number] ####[facility] (DEFAULT)[address] [place] [address] Serum or plasma albumin/glob ulin mass ratioon 01-14-2024 Albumin/Globulin [Mass ratio] Serum or plasma albumin/globulin mass ratio Low 1.4-2.6 [facility] Serum or plasma anion gap de terminationon 01-14-2024 Anion gap [Moles/Vol] Serum or plasma an ion gap determination 5.0-19.0 [facility] VITAMIN B12on 12-29-2023 Cobalamin (Vitamin B12) [Mass/Vol] 303 pg/mL 232 - 1245 pg/mL [facility] Comment on above: Performed at: [address] [id number] Concert Pianist: Theron Roblero PhD, Phone: [phone] [facility][note 3] ALL CBC WITH AUTO DIFFon BASOPHILS ABSOLUTE AUTO 0.1 [facility] Basophils/100 WBC (Bld) 0.8 % 0.2 - 2.0 % [facility] Eosinophils/100 WBC (Bld) 1.5 % 0.9 - 7.0 % [facility] Erythrocyte distribution width (RBC) [Ratio] 13.7 % 11.0 - 15.0 % [facility] Hematocrit (Bld) [Volume fraction] 41.5 % 36.0 - 48.0 % [facility] Hemoglobin (Bld) [Mass/Vol] 12.9 g/dL 12.0 - 16.0 g/dL [facility] IMMATURE GRANULOCYTES ABS AUTO 0.[address] [facility] Immature granulocytes/100 WBC (Bld) 0.3 % 0.0 - 0.5 % [facility] Interpretation and review of laboratory results Abnormal [facility] LYMPHOCYTES ABSOLUTE AUTO 2.[address] [facility] Lymphocytes/100 WBC (Bld) 34.0 % 20.5 - 60.0 % [facility] MCH (RBC) [Entitic mass] 27.4 pg 26.7 - 34.[address] [facility] MCHC (RBC) [Mass/Vol] 31.1 g/dL 29.9 - 35.2 g/dL [facility] MCV (RBC) [Entitic vol] 88.3 fL 81.0 - 99.[address] [facility] MONOCYTES ABSOLUTE AUTO 0.4 [facility] Monocytes/100 WBC (Bld) 5.9 % 1.7 - 12.0 % [facility] NEUTROPHILS ABSOLUTE AUTO 4.[address] [facility] Neutrophils/100 WBC (Bld) 57.5 % 43.0 - 75.0 % [facility] Platelet mean volume (Bld) [Entitic vol] 8.7 fL Low 9.5 - 13.[address] [facility] EO # 0.[address] [facility] PLT 279 [facility] RBC 4.70 [place] [facility] WBC 7.[address] [facility] CLINISYNC [facility] MLR HEMOGLOBIN A1Con 024 Glucose [Mass/Vol] 97 mg/dL [facility] HbA1c (Bld) [Mass fraction] 5.0 % 4.5 - 6.2 % [facility] Comment on above: ADA RECOMMENDED LIMI T 4.0 - 6.0 ADA THERAPEUTIC TARGET < 7.0 ACTION SUGGESTED > 7.0 [facility][note 3] HCG ( test) Ql (U)o n 12-06-2023 Preg Test, Ur Negative [facility] [place] 12-06-2023 L Specimen: [id number] Received: 12/07/23 Status: NATHAN Guzmán Num: [id number] Spec Type: Surgical Subm Dr: Sanjeev Lopez Tissues: A Endometrium - Biopsy (EMBX) Procedures: HE/2, Gross/Micro L4 Age/ Patient Sex Location Account Attending Physician Karuna Dumont 43/F KATINA [id number] Sanjeev Lopez SPEC NUM: [id number] RECD: 12/07/23 STATUS: NATHAN GUZMÁN NUM: [id number] GENEVA: 12/06/23- SUBM DR: Sanjeev Lopez ENTERED: 12/07/[address] [facility] [address]: Bert,Lab SPEC TYPE: Surgical DEPT: ROLDAN THOMPSON ENTERED BY: [id number] RECV BY: [id number] ORDERED: HE/2, Gross/Micro L4 ORDERED: HE/2, Gross/Micro [...] are performed supporting the above interpretation Specimen: [id number] Received: 12/07/23 Status: NATHAN Guzmán Num: [id number] Spec Type: Surgical Subm Dr: Sanjeev Lopez Tissues: A Endometrium - Biopsy (EMBX) Procedures: HE/2, Gross/Micro L4 Patient: JuliaKaruna [id number] (Continued) Specimen: [id number] Received: 12/07/23 (Continued) Signed (signature on file) Frida Kirby MD 12/12/23 2158 Specimen: [id number] Received: 12/07/23 Status: NATHAN Guzmán Num: [id number] Spec Type: Surgical Subm Dr: Sanjeev Lopez Tissues: A Endometrium - Biopsy (EMBX) Procedures: MELANIE/Cheyanne Torres/Kwame L4 Patient: Karuna Dumont [id number] (Continued) Specimen: [id number] Received: 12/07/23 (Continued) CPT Codes 36260 Specimen: [id number] Received: 12/07/23 Status: NATHAN Guzmán Num: [id number] Spec Type: Surgical Subm Dr: Sanjeev Lopez Tissues: A Endometrium - Biopsy (EMBX) Procedures: Cheyanne HERNANDEZ/Kwame L4 Patient: Karuna Dumont [id number] (Continued) Signed (signature on file) Frida Kirby MD 12/12/23 0752 [facility] ALL DHEA SULFATEon 4 DHEA-SULFATE 40.8 ug/dL Abnormal 57.3 - 279.2 ug/dL [facility] METRO SEX BINDING HORMONE (S HBG), TESTOSTERONE, FREE AND BIOAVAILABLEon 12-02-2023 SEX HORM BINDING GLOB, SERUM 60.9 nmol/L 24.6 - 122.0 nmol/L [facility] Comment on above: Performed at: [facility] [employer] [address] [id number] Concert Pianist: Theron Roblero PhD, Phone: [phone] No Panel Informationon 12-01 Interpretation and review of laboratory results Abnormal [facility] SRMCOH TESTOSTERONE FREE/TOT EQUILIBon 12-02-2023 FREE TESTOSTERONE(DIRECT) <0.2 0.0 - 4.2 pg/mL [facility] Comment on above: Performed at: [facility] [employer] [address] [id number] Concert Pianist: Theron Roblero PhD, Phone: [phone] Performed at: [facility] [employer] [id number] Concert Pianist: Katelynn Macdonald MD, Phone: [phone] Testosterone [Mass/Vol] ng/dL Abnormal 8 - 60 ng/dL [facility] Free testosterone measuremen t by LC-MS/MSon 11-29-2023 Testosterone Free [Mass/Vol] <0.2 pg/mL 0.0-4.2 [facility] Comment on above: Performed at: [facility] [employer] [address] [id number] Director: Theron Roblero PhD, Phone: [phone] at: [address] [id number] Director: Katelynn Macdonald MD, Phone: [phone] No Panel Informationon 11-28 Dehydroepiandrosterone Sulfate 40.8 ug/dL Abnormal 57.3-279.2 [facility] Sex Hormone Binding Globulin 60.9 nmol/L 24.6-122.0 [facility] Comment on above: Performed at: [facility] [employer] [address] [id number] Director: Theron Roblero PhD, Phone: [phone] Testosterone Level <3 ng/dL Abnormal 8-60 [facility] Activated partial thrombopla stin time (aPTT) in platelet poor plasma by coagulation aon 10-25-2023 aPTT Coag (PPP) [Time] 29.5 s 22.3-36.2 [facility] Basophils Auto (Bld) [#/Vol] on 10-25-2023 Basophils (Bld) [#/Vol] 0.1 10 3/uL 0.0-0.1 [facility] Basophils/100 WBC Auto (Bld) on 10-25-2023 Basophils/100 WBC (Bld) 1.1 % 0.2-2.0 [facility] Eosinophils/100 WBC Auto (Bl d)on 10-25-2023 Eosinophils/100 WBC (Bld) 2.2 % 0.9-7.0 [facility] Erythrocyte distribution wid th Auto (RBC) [Ratio]on 10-25-2023 Erythrocyte distribution width (RBC) [Ratio] 14.5 % 11.0-15.0 [facility] Glucose mean value [Mass/vol ume] in Blood Estimated from glycated hemoglobinon 10-25-2023 Average glucose Estimated from glycated hemoglobin (Bld) [Mass/Vol] 88 mg/dL [facility] Hematocrit Auto (Bld) [Volum e fraction]on 10-25-2023 Hematocrit (Bld) [Volume fraction] 39.8 % 36.0-48.0 [facility] Hemoglobin [Mass/volume] in Bloodon 10-25-2023 Hemoglobin (Bld) [Mass/Vol] 12.6 g/dL 12.0-16.0 [facility] INR in Platelet poor plasma by Coagulation assayon 10-25-2023 INR Coag (PPP) [Relative time] 0.99 {INR} [facility] Comment on above: DESIRED INR:2.0-3.0 CONDITIONS NOT LISTED BELOW2.5-3.5 FOR PROSTHETIC HEART VALVE REPLACEMENT2.5-3.5 RECURRENT THROMBOSIS Laboratory - Chemistry and C hemistry - challengeon 10-25-2023 Free T4 [Mass/Vol] 1.24 ng/dL 0.76-1.46 [facility] TSH Qn 1.497 m[IU]/L 0.358-3.74 0 [facility] Laboratory - Hematology and Cell countson 10-25-2023 HbA1c (Bld) [Mass fraction] 4.7 % 4.5-6.2 [facility] Comment on above: ADA RECOMMENDED LIMI T 4.0 - 6.0ADA THERAPEUTIC TARGET < 7.0ACTION SUGGESTED> 7.0 Immature granulocytes/100 WBC (Bld) 0.2 % 0.0-0.5 [facility] Leukocytes [#/volume] correc mini for nucleated erythrocytes in Blood by Automated counon 10-25-2023 WBC corrected for nucl RBC Auto (Bld) [#/Vol] 5.5 10 3/uL 4.0-11.0 [facility] Lymphocytes Auto (Bld) [#/Vo l]on 10-25-2023 Lymphocytes (Bld) [#/Vol] 1.8 10 3/uL 1.2-3.8 [facility] Lymphocytes/100 WBC Auto (Bl d)on 10-25-2023 Lymphocytes/100 WBC (Bld) 33.3 % 20.5-60.0 [facility] MCH Auto (RBC) [Entitic mass ]on 10-25-2023 MCH (RBC) [Entitic mass] 27.9 pg 26.7-34.0 [facility] MCHC Auto (RBC) [Mass/Vol]on 10-25-2023 MCHC (RBC) [Mass/Vol] 31.7 g/dL 29.9-35.[address] [facility] MCV Auto (RBC) [Entitic vol] on 10-25-2023 MCV (RBC) [Entitic vol] 88.1 fL 81.0-99.0 [facility] Monocytes Auto (Bld) [#/Vol] on 10-25-2023 Monocytes (Bld) [#/Vol] 0.3 10 3/uL 0.3-0.8 [facility] Monocytes/100 WBC Auto (Bld) on 10-25-2023 Monocytes/100 WBC (Bld) 5.4 % 1.7-12.0 [facility] Neutrophils Auto (Bld) [#/Vo l]on 10-25-2023 Neutrophils (Bld) [#/Vol] 3.2 10 3/uL 1.4-6.5 [facility] Neutrophils/100 WBC Auto (Bl d)on 10-25-2023 Neutrophils/100 WBC (Bld) 57.8 % 43.0-75.0 [facility] No Panel Informationon 10-24 Eosinophils # (Auto) 0.1 10 3/uL 0.0-0.[address] [facility] Human Chorionic Gonadotropin, Quant <1 mIU/mL [facility] Comment on above: 5-50 0.2-1 LJCQ76-33 0 1-2 CSQAZ952-7,000 2-3 PRCKP903-35,000 3-4 WEEKS1,000-50,000 4-5 WEEKS10,000-100,000 5-6 WEEKS15,000-200,000 6-8 WEEKS10,000-100,000 2-3 MONTHS Immature Granulocyte # (Auto) 0.01 10 3/uL 0.00-0.03 [facility] Platelet mean volume Auto (B ld) [Entitic vol]on 10-25-2023 Platelet mean volume (Bld) [Entitic vol] 9.7 fL 9.5-13.5 [facility] Platelets Auto (Bld) [#/Vol] on 10-25-2023 Platelets (Bld) [#/Vol] 300 10 3/uL 150-450 [facility] Prothrombin time (PT)on 10-02 PT Coag (PPP) [Time] 10.5 s 9.0-11.6 [facility] RBC Auto (Bld) [#/Vol]on RBC (Bld) [#/Vol] 4.52 10 6/uL 4.20-5.40 [facility] Coding Summaryon 09-01-2023 Coding Summary HTMLBase 64 AkphwhyxTJy4rHo+PGhlYWQ+ BO7PGSRjA86paQVuzZ3eD4VM TElOSywgQVBQTElOSyIgbmFt GH1piZPlAEHp IC8+LS9lEOZrPzxtaFEez3F0 pXJ5U24edt9kPEkibBB2GZJf NkGprpobq3tryAu4AGmsFkqf OyBt BZQgcY37JJU7zR71Nk43dPWo yKEhy8fihWf3YjIuNZRzOVM4 vEofNVdfb9SgHQUpE08lsCNi c2U6 PFXttAudvNQmVrDgoFX9nH1x ZPyyxrabk2burhevAae2rg78 kVMdx1G0eKQ5V8LgvvZ2PRVj bGQg VjntvWDOhE5ocynhg4zzbohd KnEyUVAyPZd6JFw2LLFlfIlm ZmIsXC70FUC0URCmqyGyW6Pq LWFs bCliCjA1h0Y9Fx2OR7WLTfua U7ACKXOBHDqqzWW+CQ20fx37 M7XqCfmpUmk5ZSCeCJR7rAH4 aD0n XFPvPLswf3I4lEV5P4TvovLo fs9nv0hbRKGsKCidX43wgLXz z7Q9ZCMtgDU9KNFzgClwUeZw aG93 Oyc+MIQhvBsum2ZdOyeux7ny t1qbvLe8OafzBQIdriEmbNrk PYF2h7CaSt0qACEoxEA3eFL9 aD0i PcFlDmY4KHejP212DeGocLXi TzrjI55lL2XwsKB+PHRyPjx0 TSQueLzqAL9jA3UyFXNzgvwj bGVm uFwcWC3zFFApnlaySPNavE5x BSBpZ7j7SkWfPpP5CFmoR3Mh SLGexfiyWt91fN3sQfFyPmQ2 MGlu L9NggbD6BVKciIPcLPthSHR7 D20ni8Q7EXViUXHmELC5dMS8 vG1khXtggbiahWDacWqvxtDk dGlj HCvfUDgwS066WNAerPwsFcWs ZGluZyBEYXRlOiAgMDUvMzEv MjAyNDwvdGQ+NHClZOG1eZuo PSAn jUVoCQytPa0yhXvgwIjyYY0i KANmxnacDBFpnY1lXHVrgDWk aBluEP5mZEJedbqxq854LlSf MHB0 RJKpxRRdJ4KkqT7pWbTbQHRv UHZlY2EozOVzBAtwX929OKhu EcJ5OHWayjBnX1ZiBVRwwMqs OiB0 t6P7Ak4Yw0AepttwG9QyhLRt AvEsAhdaRNp4N6CmXrbyeLW+ XW79VVBfZG76KGj6VMF4uWtm PSdi YIJqQ5WydW8aKtRjNKClOEVs Oyc+PHRhYmxlIHdpZHRoPScx LEOyNgTxoFfgNW6lYx9oZGDt LWNv wEectBBmBkBkb6taUXImSHqy VW1icCptX1QlzCB9VRVcg6r8 Xb55H13xU3HuxJJ+PGNvbCB3 aWR0 mB1iBbMkLzO3QZfuH840SfNr xSAhNdegm2jtq1ihmNq7RlA6 UMBkfxNghOykMOH3e1VkYj79 Y29s IHdpZHRoPSIxNSUiIHZhbGln fj0ecB6eDy6+CVQhcEB0nUR5 tT3kNzZoPpZ5KXckF728CzKt cCIv Moewo4vuz0ohuNz4TsOxTSJb ipWscZizJDH0v3JlQm62F3Og sGfem8IpNqc1na11pXSzr2N1 bGU9 L0YvITUaaptocWXmsAqmKO7h UWNggpmtDNRerH0iOKDeW8l5 SxHcXnX6BApxI1TtooA8DCUi bGQg OIApwZJDwR4tgltnu4djwenw KhWzDIDjULs4RNj9QFMluHui KtPgDNL8CwI4PDJ3bVQpuS2c bGln heuamC9vJeq+XTB1sMIcaELQ OU0lBrcytQY+MCPsJJA1tAgb LOuzBNOaaM8cDHHmF8l5UeKd LjA1 YVcwD7TyacS7NPZwnWEpRPCx cZUQlZ6gmpxuw0gegehqBdUb HFSsILo8DTt1ZQYlfNsqLxNi ZWZ0 GhW7AVS4mKZqoQ3hhMnhkdkc sM2oPmw+BfmktIgvQDK3IKr0 D6CuXln7VSYmgUqjCB9qcSLp ZGlu Ae0fdXhyaRamFW7nFNJwimwq d663AnBld1fuJRBlwSZqXEcg UTY1W34kl5A9OJPlXTQgHHG7 dGV4 pA8tdXnerwbcfFEoqOeaqmSa qGijWJhvIWjyZ989JZKssWew GnVcVJq1Q7TaHdm2NBMbvKpe ZT0n zREaNSqaCx5ysHidvKjgXY1m BQEkonqpa204ZsRew5ymTTSw gIMaUWelOTE9A14ur9W0MHOg MDAw GUF4mGA0jR9amZdvqawbpGQy lRebdeWpoOklXNqhBWuzQ002 LYHidSqsXdUhjXo7X2UhNtf4 ZCBz sAsjPB0zwJXjHBdoDq1crQnf nWxgXG7yGZHdhyghq038RaKe p4bbJKOnrJOtHOpqWDE1B42v b3I6 SIRfTXTuZMQ5nWG5tS8uiQbf bjogbGVmdDsgdmVydGljYWwt WFttN845QEExuKhuLeGqgMhv bnQg OWjnWMx8G2MuErmztCL+PC90 MWFiDQ67fOSvlHDbb7arpDh3 UgEzCAWnFWY5pSzsZJdgx9Iz ZXIt P10skMPdd6N7OOZiaFvqhRMq PwWotUB7rC4qBDmmuchpd9xi lclbDfmdk9lvlv10fM27F47g IHdp DRNjTURdQCYjOJGsaJglpv1z oL3aAu7+XTTdhJC0fJM7oF3r SDZfQgG6BSaxS341AvHehORv Pjxj g9mzz0fytGz7YlQ7HKQdwcSk nXdfHXZ6e0SrMe47I90hHNgo KLNkJWJeMNQxESHhcWqdbi7g dG9w Ii8+XSLbgYR9sTB2aJ3xAfWl QrG9PNeoR504TjSssXClDibg Z29nR4OuuEK+EBGhNul0PMIr dHls IQ5ntGIbDUgsUg8nNOC0VfNx DsWlICabT1KxCJBnhhsyfvgh mLR2LFIvBHFqjV01Fu1eiRts MTBw nXOUuR8ukqthy7chssfpFmNv WXWvYFn1XAx5ARPusZmuSoDd INF6PkE6NHX9aIFvrB2lrKka bjog aB4qD8SkOKFolwnmMw26wF4j UwMyCiB0JVwpQlb+F75LU2uB LCBBTUFOREEgREFXTjwvdGQ+ PHRk TLV1uQygOVgcWFUsxT9hFGDt R9x5MhFgZhT3YJmpM2PiQXQy docwQw65gF0gSsQbLsL0GMmf O2Zv vvK2VFNhzZHlAUxeHOF7J07p f5M7XEGkAUQdQMI7jKU9rX0a bGlnbjogbGVmdDsgdmVydGlj YWwt DObiJ401TAEfdNiiQkI4RvYw PbK6MNI3K7AlQlo9JUObeRjc RQ8ozRFaXNasPf2ekSqnzVef MC4w CKVuxnftWMCszA8wOOLcgEZx aUytQV8tAILrdbhth423WgMi XYO7EWKndZDlA9MuoZ0rNvPz MDAw BTPbW9PdcOWeQIbxN370BBqq KwD2IFKtctPdZ9RjHMShhZzn MkK2u2L4Qy12SSQBVVBipuds dGQ+ XINjXXJ8qWumBIlmXUUmnN8d KLXkB4a0QrGjDoF4XLrnP7Gt KDLolzypEj90tM9rQrNxYoD0 MGlu X8OdcuN3GHUwqLPbBBwrBSP6 U47qj5Q6AOEdPWCbJTK4kEX7 tN3jwZgnerlziSXgxGbtsoEr dGlj SXmfTGxlJ441GVVvtNgzYmBY TUFMRTwvdGQ+BQUsVVK0bZqt TIgwCBRkiS5vXVQsF4a6HuNo LjA1 FDwbZ5ZoAZMhucnoLq49uD6a MiSxPkE3VUxuR6ElppD7FFYu qURsIOlqOFR7Z55ab9M2YJZe MDAw KGW1iDO9aH0rpIpvsdfxkAKx dJkxbsXypEyiBKegIAieY653 KQYabRdtUa7XVC47TL52E1Xz Pjwv dGFibGU+PHRhYmxlIHdpZHRo YYcwAWXoGqWphYwqDC1cVy9o WJCtIRBhxGuagHVmZtToz2hi YXBz IZkiCS1erKqmZ1CdhVO1AVXj w6h5Tn99Z44qD3AhqVV+PGNv mET8uGR1zM6yQcLzWkO5EAvv Z249 LjWjxQWhTeqos0igv0jwnSa2 WiMqNRFsoxUjsUbgLJB1v8Oo Gi07Z93gWJnyHTYqRMRgTMRl IHZh uReaxy5guI4gMz0+PGNvbCB3 lNB7eR6vAdAaIxP6XVbdX728 XyQbjFNjIuowT03pK8IvyHS+ PHRy Xjh0ACJqxPbnLU2ddBFmNUhw Rw8mMOH1YeKmYeXaFTnyA5Ob JSBlufieyhxqpVB9RVTvYFIp aW47 Wd5wbAcySs6iRQPgVLY2FHSm aUPnH0IaqV4nEjNjXXEpSSSy U9PioXKdDPbcB468MFaqTvN0 IHZl twMqH7FjHDRjeEgvZiN4p6I9 Zn9LlKfvvDTgPS2iPzCsPDf3 C7XoRil2WYAbdEiuSN1vyFPm ZGlu Mz8ibGspoJuxPC1eFDUdcpvb c116OaBvf1vfOOFtpFNyZRfn OEG8U57td7R9ESEsAGWdTSR8 dGV4 mJ7szFpddictvJPioIiskeDm wQieZVyrHYcyM232HVXjjDbq ZyRVMll8I1CiQmv1RCCnmTkw ZT0n wFHyJXlvWv6mvYffaQwjOB5v YZMssepmi406VwDfi1bvBLRc iLJnVQucHMN9U95bb7P4MHKu MDAw AZD1pLE4tE0aoBnskhvgvIJe pDnxtkEfyEizKUypICyjT361 EVTefUzfTk1PRfn1H6WaYkj5 ZCBz oKcbGV0hyYRqSTvyMx1lvDez vMhxGU4tXSPjknjst186NjFc l0brRLAwwASzLHxzQVP6R22s b3I6 AUBwHLBsSVS8eJO3dU4ohRwn bjogbGVmdDsgdmVydGljYWwt MHjkO019YTZhvJtwKrJztXAp Ojwv dGQ+BK60pd99Z1InJtigJhr2 RUBlVYA0zGG4oW1bWNPyZMjg f0Q7cGM0W6WzgtNkou4qz8rw YXBz ZTo (more content not included)... [facility] ED Clinical Summaryon 2023 ED Clinical Summary [facility] [address] [place] [address] Clinical Summary PERSON INFORMATION Name: KARUNA DUMONT Age: 42 Years Sex: FEMALE : 1980 MRN: Acct#: Visit Reason: Skin problem; RASH ON ARMS Arrival: 08/23/2023 14:45:23 Discharge: 08/23/2023 15:20:00 LOS: 000 00:35 Check In: 08/23/2023 14:45:23 Checkout: 08/23/2023 15:20:00 Address: [facility] [address] PCP: Johnathon Winter MD PROVIDER INFORMATION Provider Role Assigned Unassigned Phuong Oseguera CUFF MAKER Nurse 08/23/2023 14:46:59 Yissel Resendez-Raul ED PA 08/23/2023 14:47:33 VITALS INFORMATION Vital [...] Follow-Up: With: Address: When: Johnathon Winter MD [address] [place] [id number] DIAGNOSIS: 1:Rash and nonspecific skin eruption; 2:Elevated blood pressure reading without diagnosis of hypertension Patient Understands: Comment: [facility] ED Patient Summaryon 024 ED Patient Summary [facility] ? [facility] Care [address] [place] [address] PATIENT DISCHARGE INSTRUCTIONS Patient Information Name: KARUNA DUMONT Age: 42 Years Date of : 1980 Reason For Visit: Skin problem; RASH ON ARMS Arrival Time: 08/23/2023 14:45:23 Primary Care Physician: Johnathon Winter MD Attending Physician: Yissel Resendez PA-C Comment: Patient Education With: Address: When: Johnathon Winter MD [address] [place] [address] Rash, Adult A rash is a change [...] with your condition: Medicine Take or apply vikz-scj-utrytci and prescription medicines only as told by [...] a bath with: ? Epsom salts. Follow web development consultant instructions on the packaging. You can get these at your local pharmacy or grocery store. ? Baking soda. Pour a small amount into the bath as told by your health care provider. ? Colloidal oatmeal. Follow web development consultant instructions on the packaging. You can get this at your local pharmacy or grocery store. ? Try applying baking soda paste to your skin. Stir water into baking soda until it reaches a paste-like consistency. ? Try applying calamine lotion. This is an jbnw-jxw-oyeiiex lotion that helps to relieve itchiness. ? [...] rash from spreading. ? Take or apply ekgh-mig-lkypfbg and prescription medicines only as told by your health care provider. ? Contact a health care provider if you have new or worsening symptoms. ? Keep all follow-up visits as told by yo (more content not included)... [facility] 05-23-2023 L Specimen: [id number] Received: 05/24/23 Status: NATHAN Req Num: [id number] Spec Type: Surgical Subm Dr: Tee Peterson MD Tissues: A BREAST CORE NO CALCS (LT BREAST) Procedures: HE/4, Gross/Micro L4, AE1-AE3/2 Age/ Patient Sex Location Account Attending Physician Karuna Dumont 42/F [facility]ELL [id number] Tee Peterson MD SPEC NUM: [id number] RECD: 05/24/23 STATUS: NATHAN GUZMÁN NUM: [id number] GENEVA: 05/23/23 DR: Tee Peterson MD ENTERED: 05/24/[address] [facility] [address]: Bert,Lab SPEC TYPE: Surgical DEPT: [...] Time: 0.10 Formalin Fixation Time: 28.50 Specimen: [id number] Received: 05/24/23 Status: NATHAN Guzmán Num: [id number] Spec Type: Surgical Subm Dr: Tee Peterson MD Tissues: A BREAST CORE NO CALCS (LT BREAST) Procedures: HE/4, Gross/Micro L4, AE1-AE3/2 Patient: Karuna Dumont [id number] (Continued) Specimen: [id number] Received: 05/24/23 (Continued) Signed (signature on file) Joie_ Tootie Jordan MD 05/31/236 Specimen: [id number] Received: 05/24/23 Status: NATHAN Guzmán Num: [id number] Spec Type: Surgical Subm Dr: Tee Peterson MD Tissues: A BREAST CORE NO CALCS (LT BREAST) Procedures: HE/4, Gross/Micro L4, AE1-AE3/2 Patient: Karuna Dumont [id number] (Continued) Specimen: [id number] Received: 05/24/23 (Continued) CPT Codes 76651 Specimen: [id number] Received: 05/24/23 Status: NATHAN Guzmán Num: [id number] Spec Type: Surgical Subm Dr: Tee Peterson MD Tissues: A BREAST CORE NO CALCS (LT BREAST) Procedures: HE/4, Gross/Micro L4, AE1-AE3/2 Patient: Karuna Dumont [id number] (Continued) Signed (signature on file) Tootie Jordan MD 05/31/232105 Normal [facility] Free testosterone measuremen t by LC-MS/MSon 05-10-2023 Testosterone Free [Mass/Vol] 0.6 pg/mL 0.0-4.2 [facility] Comment on above: Performed at: [address] [id number] Director: Theron Roblero PhD, Phone: [phone] at: [address] [id number] Director: Katelynn Macdonald MD, Phone: [phone] No Panel Informationon 05-10 C-Peptide 2.8 ng/mL 1.1-4.4 [facility] Comment on above: C-Peptide reference interval is for fasting patients.Performed at: [address] [id number] Director: Theron Roblero PhD, Phone: [phone] Dehydroepiandrosterone Sulfate 194.0 ug/dL 57.3-279.2 [facility] Free Cortisol, Dialysis, LCMS 0.787 ug/dL . [facility] Comment on above: These tests were dev eloped and their performancecharacteristics determined by [facility]. They have not beencleared or approved by the Food and Drug Administration.Reference Range:8 AM 0.10 - 1.204 PM 0.042 - 0.872Performed at: [facility] [id number] [place], [place] [id number] Director: Kal Archibald MD, Phone: [phone] Reverse Triiodothyronine (T3) 23.0 ng/dL 9.2-24.1 [facility] Comment on above: This test was develo ped and its performance characteristicsdetermined by [facility]. It has not been cleared orapproved by the Food and Drug Administration.Performed at: [facility] [employer] [id number] Director: Katelynn Macdonald MD, Phone: [phone] Sex Hormone Binding Globulin 49.1 nmol/L 24.6-122.0 [facility] Comment on above: Performed at: [address] [id number] Director: Theron Roblero PhD, Phone: [phone] Testosterone Level 22 ng/dL 8-60 [facility] Plasma serotonin measurement (mass/volume)on 05-10-2023 Serotonin (P) [Mass/Vol] 105 ng/mL 31 [facility] Comment on above: This test was develo ped and its performance characteristicsdetermined by [facility]. It has not been cleared orapproved by the Food and Drug Administration.Performed at: [facility] [employer] [id number] Director: Katelynn Macdonald MD, Phone: [phone] Serum estrone measurementon 05-10-2023 E1 [Mass/Vol] 65 pg/mL [facility] Comment on above: Range Adult (Premeno pausal) 27 - 231 Menstrual Cycle (1-10 days) 19 - 149 Menstrual Cycle (11-20 days) 32 - 176 Menstrual Cycle (21-30 days) 37 - 200Performed at: [facility] [id number] [place], [place] [id number] Director: Katelynn Macdonald MD, Phone: [phone] Serum or plasma estradiol (E 2) measurement (mass/volume)on 05-10-2023 E2 [Mass/Vol] 98.9 pg/mL . [facility] Comment on above: Adult Female Range F ollicular phase 12.5 - 166.0 Ovulation phase 85.8 - 498.0 Luteal phase 43.8 - 211.0 Postmenopausal <6.0 - 54.7 1st trimester 215.0 - >4300.0Roche ECLIA methodology Serum or plasma insulin mariam urement (units/volume)on 05-10-2023 Insulin Qn 7.0 u[iU]/mL 2.6-24.9 [facility] Comment on above: Performed at: [facility] [address] [id number] Director: Theron Roblero PhD, Phone: [phone] Serum or plasma progesterone measurement (mass/volume)on 05-10-2023 Progesterone [Mass/Vol] 0.1 ng/mL . [facility] Comment on above: Follicular phase 0.1 - 0.9 Luteal phase 1.8 - 23.9 Ovulation phase 0.1 - 12.0 First trimester 11.0 - 44.3 Second trimester 25.4 - 83.3 Third trimester 58.7 - 214.0 Postmenopausal 0.0 - 0.1Performed at: [facility] [address] [id number] Director: Theron Roblero PhD, Phone: [phone] Serum or plasma thyroperoxid ase antibody assay (units/volume)on 05-10-2023 TPO Ab Qn 11 [IU]/mL 0-34 [facility] Thyroglobulin [Mass/volume] in Serum or Plasmaon 05-10-2023 Thyroglobulin [Mass/Vol] <1.0 [IU]/mL 0.0-0.9 [facility] Comment on above: Thyroglobulin Antibo dy measured by Sarah [employer] BioTherapeuticsMethodologyPerformed at: [facility] [id number] [place], [place] [id number] Director: Theron Roblero PhD, Phone: [phone] No Panel Informationon 10-11 No acute bony abnormalities are noted [facility] EXAMINATION: THREE XRAY VIEWS OF THE RIGHT [...] well maintained. Soft tissue swelling. Calcaneal spurs [facility] Miller Romo MD - 10/11/2022 EXAMINATION: THREE [...] IMPRESSION: No acute bony abnormalities are noted [facility] Radiology Study observation (narrative) [facility] No Panel InformationOrdered By: Miller Romo on 10-11-2022 [facility] Work Phone: XR ANKLE RIGHT [...] Miller Romo MD 10/11/22 Final result Normal [facility] XR FOOT RIGHT (MIN 3 [...] Miller Romo MD 10/11/22 Final result Normal [facility] PAP ACOG PANEL 2: 30 to 65on 07-16-2022 . . Normal [facility] Comment on above: Result Comment: Perf ormed at: WB Performed By: #### [id number] #### [facility] [address] [address] [address] Dang Kirby Age Gdln ACOG Testing 30-65 Normal [facility] Comment on above: Performed By: #### [id number] #### [facility] [address] [address] [address] Dang Kirby DIAGNOSIS: Comment Normal [facility] Comment on above: Result Comment: NEGA TIVE FOR INTRAEPITHELIAL LESION OR MALIGNANCY. THIS SPECIMEN WAS RESCREENED PART OF OUR GRAIN WAFER MACHINE OPERATOR PROGRAM. Performed at: WB Performed By: #### [id number] #### [facility] [address] [address] [address] Dang Kirby HPV Aptima Negative Normal Negative [facility] Comment on above: Result Comment: This nucleic acid amplification test detects fourteen high-risk HPV types (16,18,31,33,35,39,45,51,52,56,58,59,66,68) without differentiation. Performed at: =G Performed By: #### [id number] #### [facility] [address] [address] [address] Dang Kirby HPV Genotype Reflex Comment Normal [facility] Comment on above: Result Comment: Crit eria not met, HPV Genotype not performed. Performed at: WB Performed By: #### [id number] #### [facility] [address] [address] [address] Dang Kirby Methodology: Comment Normal [facility] Comment on above: Result Comment: This liquid based ThinPrep(R) pap test was screened with the use of an image guided system. Performed at: WB Performed By: #### [id number] #### [facility] [address] [place] [address] Dr. Dang Kirby Note: Comment Normal [facility] Comment on above: Result Comment: The Pap smear is a screening test designed to aid in the detection of premalignant and malignant conditions of the uterine cervix. It is not a diagnostic procedure and should not be used as the sole means of detecting cervical cancer. Both false-positive and false-negative reports do occur. . Performed at: WB Performed By: #### [id number] #### [facility] [address] [address] [address] Dang Kirby Performed by: Comment Normal [facility] Comment on above: Result Comment: Flavia Stanford, Hims Clerk (ASCP) Performed at: WB Performed By: #### [id number] #### [facility] [address] [address] [address] Dang Kirby QC reviewed by: Comment Normal [facility] Comment on above: Result Comment: Valentino Victor, Hims Clerk Performed at: WB Performed By: #### [id number] #### [facility] [address] [place] [address] Dr. Dang Kirby Specimen adequacy: Comment Normal [facility] Comment on above: Result Comment: Sati sfactory for evaluation. No endocervical component is identified. Performed at: WB Performed By: #### [id number] #### [facility] [address] [address] [address] Dang Kirby MG MAMM DIAGNOSTIC 3D RAMA CA Don 04-29-2022 MG MAMM DIAGNOSTIC 3D RAMA CAD Patient: JULIA, KARUNA DCelia Exam Date: 04/29/2022 : 1980 Gender:F Ordering : DR SANJEEV LOPEZ . Admission #: [id number] Family : Order #: [id number] CLICK HERE TO VIEW EXAM RADIOLOGY REPORT PROCEDURE: MAMMOGRAM DIAGNOSTIC 3D BILATERAL CAD, 04/29/2022, 10:05 ULTRASOUND BREAST RIGHT LIMITED, 04/29/2022, 11:04 COMPARISON: None. INDICATIONS: Pain of breast Calculator Name NCI Breast Cancer Risk Assessment Tool 5 Year Breast Cancer Risk Not Reported. Lifetime Breast Cancer Risk Not Reported. Personal Breast Cancer No Personal Ovarian Cancer No Treatments None Family Cancers None LOCATION: [facility] BREAST COMPOSITION: Scattered areas fibroglandular [...] M.D. on 04/29/2022 at 14:55 Normal [facility] US BREAST RIGHT LIMITEDon US BREAST RIGHT LIMITED Patient: KARUNA DUMONT Exam Date: 04/29/2022 : 1980 Gender:F Ordering : DR SANJEEV LOPEZ . Admission #: [id number] Family : Order #: [id number] CLICK HERE TO VIEW EXAM RADIOLOGY REPORT PROCEDURE: MAMMOGRAM DIAGNOSTIC 3D BILATERAL CAD, 04/29/2022, 10:05 ULTRASOUND BREAST RIGHT LIMITED, 04/29/2022, 11:04 COMPARISON: None. INDICATIONS: Pain of breast Calculator Name NCI Breast Cancer Risk Assessment Tool 5 Year Breast Cancer Risk Not Reported. Lifetime Breast Cancer Risk Not Reported. Personal Breast Cancer No Personal Ovarian Cancer No Treatments None Family Cancers None LOCATION: [facility] BREAST COMPOSITION: Scattered areas fibroglandular density. [...] M.D. on 04/29/2022 at 14:55 Normal [facility] CT CERVICAL SPINE WO CONTRAS [...] Oziel Fox MD 02/16/22 Final result [facility] XR CLAVICLE LEFTon 2 XR [...] Miller Romo MD 02/16/22 Final result Normal [facility] XR SHOULDER LEFT (MIN 2 [...] Emil Flores MD 02/16/22 Final result Normal [facility] CBC with Auto Differentialon 01-03-2022 Absolute Eos # 0.10 [place] [facility] Absolute Lymph # 1.60 [facility] Absolute [place] # 0.40 [facility] Basophils (Bld) [#/Vol] 0.00 10*3/uL [facility] Basophils/100 WBC (Bld) 1 % 0 - 2 % B [facility] Eosinophils/100 WBC (Bld) 2 % 1 - 4 % [facility] Hematocrit (Bld) [Volume fraction] 46.0 % 36 - 46 % [facility] Hemoglobin (Bld) [Mass/Vol] 15.4 g/dL 12 - 16 g/dL [facility] Interpretation and review of laboratory results Abnormal [facility] Lymphocytes/100 WBC (Bld) 29 % 24 - 44 % [facility] MCH (RBC) [Entitic mass] 28.6 pg 26 - 34 pg [facility] MCHC (RBC) [Mass/Vol] 33.4 g/dL 31 - 3 7 g/dL [facility] MCV (RBC) [Entitic vol] 85.9 fL 80 - 100 fL [facility] Monocytes/100 WBC (Bld) 8 % 2 - 11 % B ON [facility] Platelet distribution width (Bld) [Ratio] 14.1 % 12.5 - 15.4 % [facility] Platelet mean volume (Bld) [Entitic vol] 7.6 fL 6 - 12 fL [facility] Platelets (Bld) [#/Vol] 277 10*3/uL [facility] RBC (Bld) [#/Vol] 5.36 10*6/uL High 4 - 5.2 m/uL [facility] Segmented neutrophils/100 WBC (Bld) 60 % 36 - 66 % [facility] Segs Absolute 3.40 [facility] WBC (Bld) [#/Vol] 5.6 10*3/uL [facility] CBC with Diffon 01-03-2022 Abs. Basophil 0.00 k/uL Normal 0.0-0.2 [facility] Comment on above: Performed By: #### H CG, LIP, MG, CDP, CMPX #### [place] [address] Concert Pianist: Estevan Corcoran MD Abs.Neutrophil (Seg) 3.40 k/uL Normal 1.8-7.7 [facility] Comment on above: Performed By: #### H CG, LIP, MG, CDP, CMPX #### [id number] Concert Pianist: Estevan Corcoran MD Basophils/100 WBC (Bld) 1 % Normal 0-2 M [facility] Comment on above: Performed By: #### H CG, LIP, MG, CDP, CMPX #### [id number] Concert Pianist: Estevan Corcoran MD Eosinophils (Bld) [#/Vol] 0.10 10*3/uL Normal 0.0-0.4 [facility] Comment on above: Performed By: #### H CG, LIP, MG, CDP, CMPX #### [facility] [id number] [place], [place] [id number] Concert Pianist: Estevan Corcoran MD Eosinophils/100 WBC (Bld) 2 % Normal 1-4 [facility] Comment on above: Performed By: #### H CG, LIP, MG, CDP, CMPX #### [place] [address] Concert Pianist: Estevan Corcoran MD Erythrocyte distribution width (RBC) [Ratio] 14.1 % Normal 12.5-15.4 [facility] Comment on above: Performed By: #### H CG, LIP, MG, CDP, CMPX #### [place] [address] Concert Pianist: Estevan Corcoran MD Hematocrit (Bld) [Volume fraction] 46.0 % Normal 36-46 [facility] Comment on above: Performed By: #### H CG, LIP, MG, CDP, CMPX #### [place] [address] Concert Pianist: Estevan Corcoran MD Hemoglobin (Bld) [Mass/Vol] 15.4 g/dL Normal 12.0-16.0 [facility] Comment on above: Performed By: #### H CG, LIP, MG, CDP, CMPX #### [facility] [id number] Concert Pianist: Estevan Corcoran MD Lymphocytes (Bld) [#/Vol] 1.60 10*3/uL Normal 1.0-4.8 [facility] Comment on above: Performed By: #### H CG, LIP, MG, CDP, CMPX #### [place] [address] Concert Pianist: Estevan Corcoran MD Lymphocytes/100 WBC (Bld) 29 % Normal 24-44 [facility] Comment on above: Performed By: #### H CG, LIP, MG, CDP, CMPX #### [place] [address] Concert Pianist: Estevan Corcoran MD MCH (RBC) [Entitic mass] 28.6 pg Normal 26-34 [facility] Comment on above: Performed By: #### H CG, LIP, MG, CDP, CMPX #### [place] [address] Concert Pianist: Estevan Corcoran MD MCHC (RBC) [Mass/Vol] 33.4 g/dL Normal 31-37 [facility] Comment on above: Performed By: #### H CG, LIP, MG, CDP, CMPX #### [place] [address] Concert Pianist: Estevan Corcoran MD MCV (RBC) [Entitic vol] 85.9 fL Normal 80-100 M [facility] Comment on above: Performed By: #### H CG, LIP, MG, CDP, CMPX #### [place] [address] Concert Pianist: Estevan Corcoran MD Monocytes (Bld) [#/Vol] 0.40 10*3/uL Normal 0.1-1.2 [facility] Comment on above: Performed By: #### H CG, LIP, MG, CDP, CMPX #### [address] [address] Concert Pianist: Estevan Corcoran MD Monocytes/100 WBC (Bld) 8 % Normal 2-11 [facility] Comment on above: Performed By: #### H CG, LIP, MG, CDP, CMPX #### [facility] [id number] [place] [address] Concert Pianist: Estevan Corcoran MD Neutrophil (Seg) 60 % Normal 36-66 [facility] Comment on above: Performed By: #### H CG, LIP, MG, CDP, CMPX #### [place] [address] Concert Pianist: Estevan Corcoran MD Platelet mean volume (Bld) [Entitic vol] 7.6 fL Normal 6.0-12.0 [facility] Comment on above: Performed By: #### H CG, LIP, MG, CDP, CMPX #### [place] [address] Concert Pianist: Estevan Corcoran MD Platelets (Bld) [#/Vol] 277 10*3/uL Normal 140-450 [facility] Comment on above: Performed By: #### H CG, LIP, MG, CDP, CMPX #### [place] [address] Concert Pianist: Estevan Corcoran MD RBC (Bld) [#/Vol] 5.36 10*6/uL High 4.0-5.2 [facility] Comment on above: Performed By: #### H CG, LIP, MG, CDP, CMPX #### [address] [address] Concert Pianist: Estevan Corcoran MD WBC (Bld) [#/Vol] 5.6 10*3/uL Normal 3.5-11.0 [facility] Comment on above: Performed By: #### H CG, LIP, MG, CDP, CMPX #### [facility] [address] [place] [address] Concert Pianist: Estevan Corcoran MD CT ABDOMEN PELVIS W [...] Papito Mishra MD 01/03/22 Final result Normal [facility] CT ABDOMEN PELVIS W IV [...] L5-S1. Mild levoscoliosis of the lumbar spine. [facility] CON[facility] Papito Mishra MD - [...] evidence for small bowel obstruction. GIANA PEREZ [employer] Work Phone: Radiology Study observation (narrative) GIANA MCKINLEY [employer] Phone: CT ABDOMEN PELVIS W IV CONTR AST Additional Contrast? NoneOrdered By: Papito Mishra on 01-03-2022 GIANA PEREZ [employer] Phone: Comp Metabolic Pr/rfx MGon 1 ALT [Catalytic activity/Vol] 28 U/L Normal 5-33 [facility] Comment on above: Performed By: #### H CG, LIP, MG, CDP, CMPX #### [id number] [place] [address] Concert Pianist: Estevan Corcoran MD (cont.) [facility] Comment on above: Result Comment: Aver age GFR for 30-39 years old: 107 mL/min/1.73sq m Chronic Kidney Disease: <60 mL/min/1.73sq m Kidney failure: <15 mL/min/1.73sq m eGFR calculated using average adult body mass. Additional eGFR calculator available at: http://www.[employer].Geminare/multiple_crcl_2012.htm Performed By: #### H CG, LIP, MG, CDP, CMPX #### [id number] [place] [address] Concert Pianist: Estevan Corcoran MD Albumin [Mass/Vol] 4.3 g/dL Normal 3.5-5.2 [facility] Comment on above: Performed By: #### H CG, LIP, MG, CDP, CMPX #### [place] [address] Concert Pianist: Estevan Corcoran MD Albumin/Glob Ratio 1.4 Normal 1.0-2.5 [facility] Comment on above: Performed By: #### H CG, LIP, MG, CDP, CMPX #### [place] [address] Concert Pianist: Estevan Corcoran MD Alkaline Phos 105 U/L High 35-104 [facility] Comment on above: Performed By: #### H CG, LIP, MG, CDP, CMPX #### [place] [address] Concert Pianist: Estevan Corcoran MD Anion gap [Moles/Vol] 13 mmol/L Normal 9-17 [facility] Comment on above: Performed By: #### H CG, LIP, MG, CDP, CMPX #### [place] [address] Concert Pianist: Estevan Corcoran MD AST [Catalytic activity/Vol] 26 U/L Normal <32 [facility] Comment on above: Performed By: #### H CG, LIP, MG, CDP, CMPX #### [place] [address] Concert Pianist: Estevan Corcoran MD Bilirubin [Mass/Vol] 0.3 mg/dL Normal 0.3-1.2 [facility] Comment on above: Performed By: #### H CG, LIP, MG, CDP, CMPX #### [place] [address] Concert Pianist: Estevan Corcoran MD Calcium [Mass/Vol] 8.7 mg/dL Normal 8.6-10.4 [facility] Comment on above: Performed By: #### H CG, LIP, MG, CDP, CMPX #### [place] [address] Concert Pianist: Estevan Corcoran MD Chloride [Moles/Vol] 104 mmol/L Normal 98-107 [facility] Comment on above: Performed By: #### H CG, LIP, MG, CDP, CMPX #### [place] [address] Concert Pianist: Estevan Corcoran MD CO2 [Moles/Vol] 21 mmol/L Normal 20-31 [facility] Comment on above: Performed By: #### H CG, LIP, MG, CDP, CMPX #### [place] [address] Concert Pianist: Estevan Corcoran MD Creatinine [Mass/Vol] 0.60 mg/dL Normal 0.50-0.90 [facility] Comment on above: Performed By: #### H CG, LIP, MG, CDP, CMPX #### [place] [address] Concert Pianist: Estevan Corcoran MD GFR, Amer >60 Normal >60 [facility] Comment on above: Performed By: #### H CG, LIP, MG, CDP, CMPX #### [place] [address] Concert Pianist: Estevan Corcoran MD GFR,non Amer >60 Normal >60 [facility] Comment on above: Performed By: #### H CG, LIP, MG, CDP, CMPX #### [id number] Concert Pianist: Estevan Corcoran MD Glucose [Mass/Vol] 105 mg/dL High 70-99 [facility] Comment on above: Performed By: #### H CG, LIP, MG, CDP, CMPX #### [place] [address] Concert Pianist: Estevan Corcoran MD Potassium [Moles/Vol] 3.5 mmol/L Low 3.7-5.3 [facility] Comment on above: Performed By: #### H CG, LIP, MG, CDP, CMPX #### [place] [address] Concert Pianist: Estevan Corcoran MD Protein [Mass/Vol] 7.4 g/dL Normal 6.4-8.3 [facility] Comment on above: Performed By: #### H CG, LIP, MG, CDP, CMPX #### [place] [address] Concert Pianist: Estevan Corcoran MD Sodium [Moles/Vol] 138 mmol/L Normal 135-144 [facility] Comment on above: Performed By: #### H CG, LIP, MG, CDP, CMPX #### [place] [address] Concert Pianist: Estevan Corcoran MD Urea nitrogen [Mass/Vol] 12 mg/dL Normal 6-20 [facility] Comment on above: Performed By: #### H CG, LIP, MG, CDP, CMPX #### [place] [address] Concert Pianist: Estevan Corcoran MD Comprehensive Metabolic Pane l w/ Reflex to MGon 01-03-2022 Albumin [Mass/Vol] 4.3 g/dL 3.5 - 5.2 g/dL [facility] Albumin/Globulin [Mass ratio] 1.4 {ratio} 1 - 2.5 [facility] ALP (Bld) [Catalytic activity/Vol] 105 U/L High 35 - 104 U/L [facility] ALT [Catalytic activity/Vol] 28 U/L 5 - 33 U/L [facility] Anion gap [Moles/Vol] 13 mmol/L 9 - 17 mmol/L [facility] AST [Catalytic activity/Vol] 26 U/L NINF - 32 U/L [facility] Bilirubin [Mass/Vol] 0.3 mg/dL 0.3 - 1 .2 mg/dL [facility] Calcium [Mass/Vol] 8.7 mg/dL 8.6 - 10. 4 mg/dL [facility] Chloride [Moles/Vol] 104 mmol/L 98 - 10 7 mmol/L [facility] CO2 [Moles/Vol] 21 mmol/L 20 - 31 mmol/L [facility] Creatinine [Mass/Vol] 0.6 mg/dL 0.5 - 0.9 mg/dL [facility] GFR >60 60 - PI NF mL/min [facility] GFR Non- >60 60 - PINF mL/min [facility] GFR/1.73 sq M.predicted MDRD (S/P/Bld) [Vol rate/Area] [facility] Comment on above: Average GFR for 30-3 9 years old: 107 mL/min/1.73sq m Chronic Kidney Disease: <60 mL/min/1.73sq m Kidney failure: <15 mL/min/1.73sq m eGFR calculated using average adult body mass. Additional eGFR calculator available at: http://www.[employer]emin[employer]/multiple_crcl_2012.htm Glucose [Mass/Vol] 105 mg/dL High 70 - 99 mg/dL [facility] Interpretation and review of laboratory results Abnormal [facility] Potassium [Moles/Vol] 3.5 mmol/L Low 3.7 - 5.3 mmol/L [facility] Protein [Mass/Vol] 7.4 g/dL 6.4 - 8.3 g/dL [facility] Sodium [Moles/Vol] 138 mmol/L 135 - 144 mmol/L [facility] Urea nitrogen (BldV) [Mass/Vol] 12 mg/dL 6 - 20 mg/dL [facility] HCG Qualitative, Serumon hCG Qual Negative NEGATIVE [facility] Comment on above: Specimens with hCG l evels near the threshold of the test (25 mIU/mL) may give a negative or indeterminate result. In such cases, another test should be performed with a new specimen in 48-72 hours. If early is suspected clinically in this setting, correlation with quantitative serum b-hCG level is suggested. [facility] has confirmed the use of plasma for this test. This has not been cleared or approved by the U.S. Food and Drug Administration. The FDA has determined that such clearance is not necessary. [facility] HCG Screen, Bloodon 01-04-20 22 HCG Screen, Blood Negative Normal NEG [facility] Comment on above: Result Comment: Spec imens with hCG levels near the threshold of the test (25 mIU/mL) may give a negative or indeterminate result. In such cases, another test should be performed with a new specimen in 48-72 hours. If early is suspected clinically in this setting, correlation with quantitative serum b-hCG level is suggested. [facility] has confirmed the use of plasma for this test. This has not been cleared or approved by the U.S. Food and Drug Administration. The FDA has determined that such clearance is not necessary. Performed By: #### H CG, LIP, MG, CDP, CMPX #### [address] [address] Concert Pianist: Estevan Corcoran MD Lipaseon 01-03-2022 Lipase [Catalytic activity/Vol] 20 U/L Normal 13-60 [facility] Comment on above: Performed By: #### H CG, LIP, MG, CDP, CMPX #### [address] [id number] Concert Pianist: Estevan Corcoran MD Lipase [Catalytic activity/Vol] 20 U/L 13 - 60 U/L [facility] Magnesiumon 01-03-2022 Magnesium [Mass/Vol] 2.1 mg/dL Normal 1.6-2.6 [facility] Comment on above: Performed By: #### H CG, LIP, MG, CDP, CMPX #### [facility] [address] [place], [place] [id number] Concert Pianist: Estevan Corcoran MD Magnesium [Mass/Vol] 2.1 mg/dL 1.6 - 2 .6 mg/dL [facility] Microscopic Urinalysison Bacteria, UA MANY Abnormal None [facility] Epithelial Cells UA TOO NUMEROUS TO COUNT [facility] Interpretation and review of laboratory results Abnormal [facility] Other Observations UA Utilizing a urinal ysis as the only screening method to exclude a potential uropathogen can be unreliable in many patient populations. Rapid screening tests are less sensitive than culture and if UTI is a clinical possibility, culture should be considered despite a negative urinalysis. Abnormal NOT REQ. [facility] RBC, UA 2 TO 5 [facility] WBC, UA 2 TO 5 [facility] UA w/Reflex Cultureon 2021 Bilirubin, SemiQt,Ur Negative Normal NEG [facility] Comment on above: Performed By: #### U AX, UMICAO ####[id number] [place] [address] Lab Director: Estevan Corcoran MD Blood, Urine LARGE Abnormal NEG [facility] Comment on above: Performed By: #### U AX, UMICAO ####[id number] [place] [address] Lab Director: Estevan Corcoran MD Clarity (U) Cloudy Abnormal CLEAR [facility] Comment on above: Result Comment: FOUL ODOR Performed By: #### U AX, UMICAO ####[address] [address] Lab Director: Estevan Corcoran MD Color (U) Yellow Normal YEL [facility] Comment on above: Performed By: #### U AX, UMICAO ####[address] [address] Lab Director: Estevan Corcoran MD Glucose Ql (U) Negative Normal NEG [facility] Comment on above: Performed By: #### U AX, UMICAO ####[address] [address] Lab Director: Estevan Corcoran MD Ketones Ql (U) Negative Normal NEG [facility] Comment on above: Performed By: #### U AX, UMICAO ####[address] [address] Lab Director: Estevan Corcoran MD Leukocyte esterase Test strip Ql (U) Negative Normal NEG [facility] Comment on above: Performed By: #### U AX, UMICAO ####[address] [address] Lab Director: Estevan Corcoran MD Nitrite,Ur Negative Normal NEG [facility] Comment on above: Performed By: #### U AX, UMICAO ####[address] [address] Lab Director: Estevan Corcoran MD PH,Ur 6.0 Normal 5.0-8.0 [facility] Comment on above: Performed By: #### U AX, UMICAO ####[id number] [place], [place] [id number] Lab Director: Estevan Corcoran MD Protein Ql (U) Negative Normal NEG [facility] Comment on above: Performed By: #### U AX, UMICAO ####[address] [address] Lab Director: Estevan Corcoran MD Spec. [place],Ur 1.108 High 1.005-1.03 0 [facility] Comment on above: Result Comment: POST IV CONTRAST Performed By: #### U AXGOERGES ####[place] [address] lab Director: Estevan Corcoran MD Urobilinogen,Ur Normal Normal NORM [facility] Comment on above: Performed By: #### U AXTERESAO ####[place] [address] lab Director: Estevan Corcoran MD Urinalysis with Reflex to Cu ltureon 01-03-2022 Bilirubin Urine Negative NEGATIVE [facility] [employer] Color, UA Yellow Yellow [facility] [employer] Glucose, Ur Negative NEGATIVE Khush [facility] [employer] Interpretation and review of laboratory results Abnormal [facility] [employer] Ketones Ql (U) Negative NEGATIVE [facility] [employer] Leukocyte esterase Test strip Ql (U) Negative NEGATIVE [facility] [employer] Nitrite, Urine Negative NEGATIVE [facility] [employer] pH, UA 6.0 5 - 8 Khush [facility] [employer] Protein, UA Negative NEGATIVE [facility] [employer] Specific [place], UA 1.108 High 1.005 - 1.03 [facility] [employer] Comment on above: POST IV CONTRAST Turbidity UA Cloudy Abnormal Clear [facility] [employer] Comment on above: FOUL ODOR Urine Hgb LARGE Abnormal NEGATIVE [facility] [employer] Urobilinogen, Urine Normal Normal [facility] Urinalysis,Microon 2 Bacteria MANY Abnormal NONE [facility] Comment on above: Performed By: #### U AX, UMICAO ####[address] [address] Lab Director: Estevan Corcoran MD Epithelial cells LM Ql (Urine sed) TOO NUMEROUS TO COUNT Normal 0-5 [facility] Comment on above: Performed By: #### U AX, UMICAO ####[address] [address] Lab Director: Estevan Corcoran MD Other Observations Utilizing a urinalys is as the only screening method to exclude a potential Abnormal NREQ [facility] Comment on above: Result Comment: urop athogen can be unreliable in many patient populations. Rapid screening tests are less sensitive than culture and if UTI is a clinical possibility, culture should be considered despite a negative urinalysis. Performed By: #### U AX, UMICAO ####[address] [address] Lab Director: Estevan Corcoran MD Urine RBC's 2 TO 5 Normal 0-2 [facility] Comment on above: Performed By: #### U AX, UMICAO ####[address] [address] Lab Director: Estevan Corcoran MD Urine WBC's 2 TO 5 Normal 0-5 [facility] Comment on above: Performed By: #### U AX, UMICAO ####[address] [address] Lab Director: Estevan Corcoran MD CT LUMBAR [...] leg pain. Follow-up MRI may be helpful. [facility] EXAMINATION: CT OF [...] SOFT TISSUES/RETROPERITONEUM: No paraspinal mass is seen. [facility] Boyd Beatty MD [...] leg pain. Follow-up MRI may be helpful. [employer] Work Phone: Radiology Study observation (narrative) [employer] [facility] Work Phone: CT LUMBAR SPINE WO CONTRASTO rdered By: Boyd Beatty on 08-19-2021 [employer] Work Phone: Vital Signs Date Time Vital Sign Value Performing Clinician Facility 10-29-2024 08:55-0400 Body height 165.1 cm Georgi Carreon [facility] Work Phone: [facility] 10-29-2024 08:55-0400 Body mass index (BMI) [Ratio] 31.62 kg/m2 Georgi POST Work Phone: [facility] 10-29-2024 08:55-0400 Body weight 86.18 kg Georgi Carreon [facility] Work Phone: [facility] 09-17-2024 09:57-0400 Body height 165.1 cm Georgi Rusher DPM Work Phone: [facility] 09-17-2024 09:57-0400 Body mass index (BMI) [Ratio] 31.62 kg/m2 Georgi Rusher DPM Work Phone: [facility] 09-17-2024 09:57-0400 Body weight 86.18 kg Georgi Rusher DPM Work Phone: [facility] 09-04-2024 08:26-0400 Body height 165.1 cm Georgi Rusher DPM Work Phone: [facility] 09-04-2024 08:26-0400 Body mass index (BMI) [Ratio] 31.62 kg/m2 Georgi Rusher DPM Work Phone: [facility] 09-04-2024 08:26-0400 Body weight 86.18 kg Georgi Rusher DPM Work Phone: [facility] 08-21-2024 13:09-0400 Body height 165.1 cm Georgi Rusher DPM Work Phone: [facility] 08-21-2024 13:09-0400 Body mass index (BMI) [Ratio] 31.62 kg/m2 Georgi Rusher DPM Work Phone: [facility] 08-21-2024 13:09-0400 Body weight 86.18 kg Georgi Rusher DPM Work Phone: [facility] 07-31-2024 13:47-0400 Body height 165.1 cm [facility] 2 [facility] 07-31-2024 13:47-0400 Body mass index (BMI) [Ratio] 31.62 kg/m2 P[facility] 2 [facility] 07-31-2024 13:47-0400 Body weight 86.18 kg Pmh 2 [facility] 07-31-2024 12:55-0400 Body height 165.1 cm Georgi Rusher DPM Work Phone: [facility] 07-31-2024 12:55-0400 Body mass index (BMI) [Ratio] 31.62 kg/m2 Georgi Carreon DPM Work Phone: [facility] 07-31-2024 12:55-0400 Body weight 86.18 kg Georgi Rusher DPM Work Phone: [facility] 07-29-2024 11:17-0400 Body height 167.[address] [facility] 07-29-2024 11:17-0400 Body mass index (BMI) [Ratio] 32.9 kg/m2 [facility] 07-29-2024 11:17-0400 Body weight 92.[address] [facility] 07-29-2024 11:17-0400 Diastolic blood pressure 86 mm[Hg] [facility] 07-29-2024 11:17-0400 Heart rate 73 /min [facility] 07-29-2024 11:17-0400 Systolic blood pressure 120 mm[Hg] [facility] 07-22-2024 14:12-0400 Body mass index (BMI) [Ratio] 34.11 kg/m2 Sanjeev Jessica DO Work Phone: [facility] 07-22-2024 14:12-0400 Body weight 92.99 kg Sanjeev Jessica DO Work Phone: [facility] 07-22-2024 14:12-0400 Diastolic blood pressure 82 mm[Hg] Sanjeev Jessica DO Work Phone: [facility] 07-22-2024 14:12-0400 Systolic blood pressure 128 mm[Hg] Sanjeev Jessica DO Work Phone: [facility] 07-16-2024 09:09-0400 Body height 165.1 cm Geogrimomo Carreon DPM Work Phone: [facility] 07-16-2024 09:09-0400 Body mass index (BMI) [Ratio] 31.62 kg/m2 Georgi Rusher DPM Work Phone: [facility] 07-16-2024 09:09-0400 Body weight 86.18 kg Georgi Rusher DPM Work Phone: [facility] 05-17-2024 11:00-0500 Body height 167.[address] [facility] 05-17-2024 11:00-0500 Body mass index (BMI) [Ratio] 31.1 kg/m2 [facility] 05-17-2024 11:00-0500 Body weight 87.[address] [facility] 05-17-2024 11:00-0500 Diastolic blood pressure 90 mm[Hg] [facility] 05-17-2024 11:00-0500 Heart rate 124 /min [facility] 05-17-2024 11:00-0500 Systolic blood pressure 124 mm[Hg] [facility] 04-11-2024 09:59-0500 Body height 167.[address] [facility] 04-11-2024 09:59-0500 Body mass index (BMI) [Ratio] 31.8 kg/m2 [facility] 04-11-2024 09:59-0500 Body weight 89.[address] [facility] 04-11-2024 09:59-0500 Diastolic blood pressure 94 mm[Hg] [facility] 04-11-2024 09:59-0500 Heart rate 86 /min [facility] 04-11-2024 09:59-0500 Systolic blood pressure 138 mm[Hg] [facility] 02-26-2024 09:54-0500 Body mass index (BMI) [Ratio] 33.12 kg/m2 Sanjeev Jessica DO Work Phone: [facility] 02-26-2024 09:54-0500 Body weight 90.27 kg Sanjeev Jessica DO Work Phone: [facility] 02-26-2024 09:54-0500 Diastolic blood pressure 80 mm[Hg] Sanjeev Jessica DO Work Phone: [facility] 02-26-2024 09:54-0500 Systolic blood pressure 130 mm[Hg] Sanjeev Jessica DO Work Phone: [facility] 01-18-2024 14:03-0400 Body height 165.1 cm [facility] 01-18-2024 14:03-0400 Body mass index (BMI) [Ratio] 31.45 kg/m2 [facility] 01-18-2024 14:03-0400 Body weight 85.73 kg [facility] 01-03-2024 10:48-0400 Body mass index (BMI) [Ratio] 33.75 kg/m2 Sanjeev Jessica DO Work Phone: [facility] 01-03-2024 10:48-0400 Body weight 91.99 kg Sanjeev Jessica DO Work Phone: [facility] 01-03-2024 10:48-0400 Diastolic blood pressure 74 mm[Hg] Sanjeev Jessica DO Work Phone: [facility] 01-03-2024 10:48-0400 Systolic blood pressure 116 mm[Hg] Sanjeev Jessica DO Work Phone: [facility] 12-06-2023 11:46-0400 Body mass index (BMI) [Ratio] 32.78 kg/m2 Sanjeev Jessica DO Work Phone: [facility] 12-06-2023 11:46-0400 Body weight 89.36 kg Sanjeev Jessica DO Work Phone: [facility] 12-06-2023 11:46-0400 Diastolic blood pressure 72 mm[Hg] Sanjeev Jessica DO Work Phone: [facility] 12-06-2023 11:46-0400 Systolic blood pressure 124 mm[Hg] Sanjeev Jessica DO Work Phone: [facility] 11-29-2023 13:37-0400 Body mass index (BMI) [Ratio] 34.28 kg/m2 Sanjeev Jessica DO Work Phone: [facility] 11-29-2023 13:37-0400 Body weight 93.44 kg Sanjeev Jessica DO Work Phone: [facility] 11-29-2023 13:37-0400 Diastolic blood pressure 74 mm[Hg] Sanjeev Jessica DO Work Phone: [facility] 11-29-2023 13:37-0400 Systolic blood pressure 128 mm[Hg] Sanjeev Jessica DO Work Phone: [facility] 06-12-2023 10:05-0400 Body height 165.1 cm Rohit Metzger MD Work Phone: [facility] 06-12-2023 10:05-0400 Body mass index (BMI) [Ratio] 38.94 kg/m2 Rohit Metzger MD Work Phone: [facility] 06-12-2023 10:05-0400 Body weight 106.14 kg Rohit Metzger MD Work Phone: [facility] 05-16-2023 13:48-0500 Body height 165.1 cm Rohit Metzger MD Work Phone: [facility] 05-16-2023 13:48-0500 Body mass index (BMI) [Ratio] 38.94 kg/m2 Rohit Metzger MD Work Phone: [facility] 05-16-2023 13:48-0500 Body weight 106.14 kg Rohit Metzger MD Work Phone: [facility] 05-08-2023 13:10-0500 Body height 165.1 cm Jennie Colon CHILD CARE LEADER-DENTURE FINISHER Work Phone: [facility] 05-08-2023 13:10-0500 Body mass index (BMI) [Ratio] 38.94 kg/m2 Jennie Colon CHILD CARE LEADER-DENTURE FINISHER Work Phone: [facility] 05-08-2023 13:10-0500 Body weight 106.14 kg Jennie Colon CHILD CARE LEADER-DENTURE FINISHER Work Phone: [facility] 05-08-2023 13:10-0500 Diastolic blood pressure 72 mm[Hg] Jennie Colon CHILD CARE LEADER-DENTURE FINISHER [facility]: [facility] 05-08-2023 13:10-0500 Heart rate 99 /min Jennie Colon CHILD CARE LEADER-DENTURE FINISHER Work Phone: [facility] 05-08-2023 13:10-0500 Systolic blood pressure 124 mm[Hg] Jennie Colon CHILD CARE LEADER-DENTURE FINISHER Work Phone: [facility] [employer] [facility] 04-14-2023 11:43-0500 Diastolic blood pressure 97 mm[Hg] Kal Martinez CHILD CARE LEADER-DENTURE FINISHER Work Phone: [facility] Comment on above: . 04-14-2023 11:43-0500 Systolic blood pressure 133 mm[Hg] Kal Martinez CHILD CARE LEADER-DENTURE FINISHER Work Phone: [facility] Comment on above: . 04-14-2023 11:38-0500 Body mass index (BMI) [Ratio] 39.01 kg/m2 Kal Martinez CHILD CARE LEADER-DENTURE FINISHER Work Phone: [facility] 04-14-2023 11:38-0500 Body temperature 98.6 [degF] Kal Martinez CHILD CARE LEADER-DENTURE FINISHER Work Phone: [facility] 04-14-2023 11:38-0500 Body weight 106.32 kg Kal Martinez CHILD CARE LEADER-DENTURE FINISHER Work Phone: [facility] 04-14-2023 11:38-0500 Heart rate 92 /min Kal Martinez CHILD CARE LEADER-DENTURE FINISHER Work Phone: [facility] 04-14-2023 11:38-0500 Respiratory rate 14 /min Kal Martinez CHILD CARE LEADER-DENTURE FINISHER Work Phone: [facility] 04-14-2023 11:38-0500 SaO2% (BldA) [Mass fraction] 100 % Kal Martinez CHILD CARE LEADER-DENTURE FINISHER Work Phone: [facility] [employer] [facility] 01-02-2023 10:00-0400 Body height 162.56 cm Johnathon Winter Other [employer] Other 01-02-2023 10:00-0400 Body mass index (BMI) [Ratio] 42.91 kg/m2 Johnathon Winter Other [employer] Other 01-02-2023 10:00-0400 Body weight 113.4 kg Johnathon Winter Other [employer] Other 01-02-2023 10:00-0400 Diastolic blood pressure 82 mm[Hg] Johnathon Winter Other [employer] Other 01-02-2023 10:00-0400 Systolic blood pressure 126 mm[Hg] Johnathon Winter Other [employer] Other 2022 11:00-0400 Body height 162.56 cm Johnathon Winter Other [employer] Other 2022 11:00-0400 Body mass index (BMI) [Ratio] 44.56 kg/m2 Johnathon Winter Other [employer] Other 2022 11:00-0400 Body weight 117.75 kg Johnathon Winter Other [employer] Other 2022 11:00-0400 Diastolic blood pressure 101 mm[Hg] Johnathon Winter Other [employer] Other 2022 11:00-0400 SaO2% (BldA) [Mass fraction] 100 % Johnathon Winter Other [employer] Other 2022 11:00-0400 Systolic blood pressure 138 mm[Hg] Johnathon Winter Other [facility] [employer] Other 10-11-2022 18:45-0400 Body height 165.1 cm Roxie Garcia MD Work Phone: [employer] 10-11-2022 18:45-0400 Body mass index (BMI) [Ratio] 43.93 kg/m2 Roxie Garcia MD Work Phone: [employer] 10-11-2022 18:45-0400 Body temperature 99 [degF] Roxie Garcia MD Work Phone: [employer] 10-11-2022 18:45-0400 Body weight 119.75 kg Roxie Garcia MD Work Phone: [employer] 10-11-2022 18:45-0400 Diastolic blood pressure 108 mm[Hg] Roxie Garcia MD Work Phone: [employer] 10-11-2022 18:45-0400 Heart rate 87 /min Roxie Garcia MD Work Phone: [employer] 10-11-2022 18:45-0400 Respiratory rate 16 /min Roxie Garcia MD Work Phone: [employer] 10-11-2022 18:45-0400 SaO2% (BldA) [Mass fraction] 98 % Roxie Garcia MD Work Phone: [employer] 10-11-2022 18:45-0400 Systolic blood pressure 160 mm[Hg] Roxie Garcia MD Work Phone: [employer] 01-03-2022 13:54-0400 Diastolic blood pressure 95 mm[Hg] Teo Thomas DO [employer] 01-03-2022 13:54-0400 Heart rate 61 /min Teo Thomas DO [employer] [place] 01-03-2022 13:54-0400 SaO2% (BldA) [Mass fraction] 100 % Teo Thomas DO [employer] 01-03-2022 13:54-0400 Systolic blood pressure 142 mm[Hg] Teo Froylanfman DO Kh[facility] [employer] 01-03-2022 11:46-0400 Body height 165.1 cm [facility] [employer] 01-03-2022 11:46-0400 Body mass index (BMI) [Ratio] 44.1 kg/m2 Te[facility]ylanfman [facility] [employer] 01-03-2022 11:46-0400 Body temperature 97.7 [degF] Teo Froylanfman DO Khush [facility] [employer] 01-03-2022 11:46-0400 Body weight 120.2 kg Teo Galeanofman DO Khush [facility] [employer] 01-03-2022 11:46-0400 Respiratory rate 16 /min [facility]fman [facility] 08-19-2021 18:03-0400 Diastolic blood pressure 98 mm[Hg] Rad[facility] Sanders MD [facility] 08-19-2021 18:03-0400 Heart rate 92 /min Radha Sanders MD Work Phone: [employer] 08-19-2021 18:03-0400 Respiratory rate 16 /min Radha Sanders MD Work Phone: [employer] 08-19-2021 18:03-0400 SaO2% (BldA) [Mass fraction] 96 % Radha Sanders MD Work Phone: [employer] 08-19-2021 18:03-0400 Systolic blood pressure 145 mm[Hg] Radha Sanders MD Work Phone: [employer] 08-19-2021 16:28-0400 Body height 165.1 cm Radha Sanders MD Work Phone: [employer] 08-19-2021 16:28-0400 Body mass index (BMI) [Ratio] 45.76 kg/m2 Radha Sanders MD Work Phone: [employer] 08-19-2021 16:28-0400 Body temperature 98.6 [degF] Radha Sanders MD Work Phone: [facility] 08-19-2021 16:28-0400 Body weight 124.74 kg Radha Sanders MD Work Phone: [facility] Encounters Encounter Date Encounter Type Care Provider Facility Start: 01-03-2025 End: 01-03-2025 Orders Only Burt Meyer CHILD CARE LEADER-DENTURE FINISHER Work Phone: [facility] Start: 11-05-2024 End: 11-05-2024 Orders Only Burt Meyer CHILD CARE LEADER-DENTURE FINISHER Work Phone: [facility] Start: 10-29-2024 End: 10-29-2024 Bamboo flowsheet Georgi S Velma DPM Work Phone: [facility] Start: 10-29-2024 End: 10-29-2024 Bamboo flowsheet Georgi S Rusher DPM Work Phone: [facility] Start: 10-29-2024 End: 10-29-2024 Postop follow up visit related to original px Georgi S Rusher DPM Work Phone: [facility] Comment on above: S/P foot surgery (Pr imary Dx); Left foot pain Start: 10-29-2024 End: 10-29-2024 ambulatory GEORGI CARREON Not Available Start: 10-21-2024 End: 10-21-2024 ambulatory BURT NOEL [facility] Start: 09-17-2024 End: 09-17-2024 Bamboo flowsheet Georgi S Rusher DPM Work Phone: [facility] Start: 09-17-2024 End: 09-17-2024 Bamboo flowsheet Georgi S Rusher DPM Work Phone: [facility] Start: 09-17-2024 End: 09-17-2024 Postop follow up visit related to original px Georgi S Rusher DPM Work Phone: [facility] Comment on above: S/P foot surgery (Pr imary Dx); Left foot pain Start: 09-17-2024 End: 09-17-2024 ambulatory GEORGI Whitney MARIA DEL ROSARIO Not Available Start: 09-04-2024 End: 09-04-2024 Bamboo flowsheet Georgi Carreon DPM Work Phone: [facility] Start: 09-04-2024 End: 09-04-2024 Bamboo flowsheet Georgi Carreon DPM Work Phone: [facility] Start: 09-04-2024 End: 09-04-2024 Postop follow up visit related to original px Georgi Carreon DPM Work Phone: [facility] Comment on above: S/P foot surgery (Pr imary Dx); Left foot pain Start: 09-04-2024 End: 09-04-2024 ambulatory GEORGI Chelo VELMA Not Available Start: 09-02-2024 End: 09-02-2024 ambulatory [facility] Start: 08-21-2024 End: 08-21-2024 Bamboo flowsheet Georgi Carreon DPM Work Phone: [facility] Start: 08-21-2024 End: 08-21-2024 Bamboo flowsheet Georgi Carreon DPM Work Phone: [facility] Start: 08-21-2024 End: 08-21-2024 Postop follow up visit related to original px Georgi Carreon DPM Work Phone: [facility] Comment on above: S/P foot surgery (Pr imary Dx); Left foot pain; Difficulty walking; Instability of left ankle joint Start: 08-21-2024 End: 08-21-2024 ambulatory GEORGI CARREON Not Available Start: 08-08-2024 End: 08-08-2024 Evaluation and management of inpatient GEORGI S VELMA [facility] Start: 08-06-2024 End: 08-06-2024 ambulatory [facility] Start: 08-05-2024 End: 08-05-2024 ambulatory [facility] Start: 08-05-2024 End: 08-05-2024 Encounter for preprocedural cardiovascular examination [facility] Start: 07-31-2024 End: 07-31-2024 Patient encounter procedure Pm Pre-Admission Testing 2 [facility] - Pre Ad[facility] Comment on above: Preop examination (P rimary Dx); Hypertension, unspecified type Start: 07-31-2024 End: 07-31-2024 Preprocedural examination done [address] Start: 07-31-2024 End: 07-31-2024 [employer] Georgi Carreon DPM Work Phone: [facility] Start: 07-31-2024 End: 07-31-2024 [employer] Georgi Carreon DPM Work Phone: [facility] Start: 07-31-2024 Encounter for other preprocedural examination JUDIALEX ORTEGA [facility] Start: 07-31-2024 End: 07-31-2024 Office outpatient visit 25 minutes Georgi Carreon DPM Work Phone: [facility] Comment on above: Hallux valgus of lef t foot (Primary Dx); Instability of left foot joint; Tailor's bunion of left foot; Acquired deformity of left toe; 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; Equinus contracture of left ankle Start: 07-31-2024 End: 07-31-2024 ambulatory GEORGI CARREON [facility] Start: 07-31-2024 End: 07-31-2024 ambulatory MONSERRAT ANDERSON [facility] Start: 07-29-2024 End: 07-29-2024 ambulatory [facility] Work Phone: Start: 07-29-2024 End: 07-29-2024 Patient encounter procedure [facility] Work Phone: Start: 07-22-2024 End: 07-22-2024 Patient encounter procedure Sanjeev Jessica DO Work Phone: [facility] Work Phone: Start: 07-22-2024 End: 07-22-2024 Periodic preventive med est patient 40-64yrs Sanjeev Jessica DO Work Phone: [facility] Comment on above: Well woman exam with routine gynecological exam; Breast cancer screening by mammogram Start: 07-22-2024 [facility] Work Phone: Start: 07-22-2024 End: 07-22-2024 Bamboo flowsheet Sanjeev Jessica DO Work Phone: [facility] Start: 07-22-2024 End: 07-25-2024 Bamboo flowsheet Sanjeev Jessica DO Work Phone: [facility] Start: 07-22-2024 End: 07-25-2024 Clinisync Result Encounter Sanjeev Jessica DO Work Phone: [facility] External Department Unsolicited Start: 07-22-2024 End: 07-22-2024 ambulatory SANJEEV JESSICA Not Available Start: 07-17-2024 End: 07-17-2024 ambulatory GEORGI Whitney [facility] Start: 07-17-2024 End: 07-17-2024 ambulatory JUDI ORTEGA [facility] Start: 07-16-2024 End: 07-16-2024 Bamboo flowsheet Georgi Carreon DPM Work Phone: [facility] Start: 07-16-2024 End: 07-16-2024 Bamboo flowsheet Georgi Carreon DPM Work Phone: [facility] Start: 07-16-2024 End: 07-16-2024 Office outpatient visit 25 minutes Georgi Carreon DPM Work Phone: [facility] Comment on above: Hallux valgus of lef t foot (Primary Dx); Instability of left foot joint; Tailor's bunion of left foot; Acquired deformity of left toe; 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; Equinus contracture of left ankle; Left foot pain; Vitamin D insufficiency Start: 07-16-2024 End: 07-16-2024 ambulatory GEORGI CARREON Not Available Start: 07-08-2024 Non-patient / Non-visit [facility] Work Phone: Start: 07-03-2024 End: 07-03-2024 ambulatory [facility] Start: 06-28-2024 Emergency department patient visit Johnathon Winter Facility:[facility] Start: 05-29-2024 End: 05-29-2024 ambulatory [facility] Start: 05-17-2024 End: 05-17-2024 ambulatory [facility] Work Phone: Start: 05-17-2024 End: 05-17-2024 Patient encounter procedure [facility] Work Phone: Start: 05-08-2024 End: 05-08-2024 ambulatory [facility] Start: 04-15-2024 Non-patient / Non-visit [facility] Work Phone: Start: 04-11-2024 Patient encounter status [facility] Start: 04-11-2024 End: 04-11-2024 ambulatory [facility] Work Phone: Start: 04-11-2024 End: 04-11-2024 Encounter for general adult medical examination without abnormal findings [facility] Start: 04-11-2024 End: 04-11-2024 Patient encounter procedure [facility] Work Phone: Start: 04-08-2024 End: 04-08-2024 ambulatory [facility] Start: 04-01-2024 End: 04-01-2024 Clinisync Result Encounter Sanjeev Jessica DO Work Phone: [facility] Unsolicited Start: 04-01-2024 End: 04-01-2024 Clinisync Result Encounter Sanjeev Jessica DO Work Phone: [facility] Unsolicited Start: 04-01-2024 Non-patient / Non-visit [facility] Work Phone: Start: 03-22-2024 End: 03-22-2024 Documentation procedure Caitlyn Carter [facility] Start: 02-26-2024 [...] Not Available Start: 01-30-2024 Non-patient / Non-visit [facility] Work Phone: Start: 01-26-2024 End: 01-26-2024 Orders Only Alfonso Liang MD Work Phone: [facility] Sur[facility] Sign In Start: 01-26-2024 End: 01-26-2024 Evaluation and management of inpatient FIDEL TORRESYDER [facility] Start: 01-25-2024 End: 01-26-2024 ambulatory SEBASTIEN [facility] Start: 01-19-2024 Non-patient / Non-visit [facility] Work Phone: Start: 01-18-2024 End: 01-18-2024 Admission to [facility] Pat Phone Call Provider 3 Tom [facility] Start: 01-18-2024 End: 01-18-2024 Evaluation and management of inpatient JOHNATHON WINTER [facility] Start: 01-14-2024 Non-patient / [facility]visit [facility] Work Phone: Start: 01-14-2024 End: 01-14-2024 Emergency department patient visit Santy [facility] Facility:[facility] Start: 01-03-2024 End: 01-03-2024 Bamboo flowsheet [...] Not Available Start: 01-03-2024 End: 01-03-[facility] Start: 12-28-2023 End: 12-29-2023 [...] Departed Referred DO Sanjeev Jessica Work Phone: [facility] [place] Work Phone: Start: 12-06-2023 End: 12-06-2023 Patient encounter procedure Sanjeev Jessica DO Work Phone: [facility] Comment on above: Pre-op examination; Menorrhagia with regular cycle; Abnormal uterine bleeding (AUB); Pelvic pain; Hormone disorder Start: 12-06-2023 End: 12-06-2023 Preprocedural examination done Sanjeev Jessica DO Work Phone: [facility] Start: 12-06-2023 End: 12-06-2023 ambulatory Sanjeev Jessica [facility] Work Phone: Start: 11-29-2023 Non-patient / Non-visit DO Cor ey Jessica Work Phone: [facility] Work Phone: Start: 11-29-2023 [...] libido Start: 11-29-2023 End: 11-29-2023 ambulatory SANJEEV SUGGSO Not Available Start: 11-22-2023 End: 11-22-2023 ambulatory JUDI [facility] Start: 11-20-2023 End: 11-20-2023 ambulatory Christiano Rivera MD Facility:[facility] Start: 11-13-2023 End: 11-13-2023 ambulatory Christiano Rivera MD Facility:[facility] Start: 10-25-2023 Non-patient / Non-visit DO Bert Lopez Work Phone: [facility] Work Phone: Start: 08-23-2023 End: 08-23-2023 ambulatory Johnathon Winter Facility:[facility] Start: 07-31-2023 End: 07-31-2023 ambulatory Bhavin Montgomery MD Facility:[facility] Start: 07-17-2023 End: 07-17-2023 ambulatory Bhavin Montgomery MD Facility:[facility] Start: 06-26-2023 End: 06-26-2023 ambulatory Bhavin Montgomery MD Facility:[facility] Start: 06-12-2023 End: 06-12-2023 ambulatory ROHIT SMITH [facility] Comment on above: Lumbar radiculopathy , chronic (Primary Dx); Herniated lumbar intervertebral disc Start: 06-12-2023 End: 06-12-2023 Office outpatient visit 10 minutes Rohit Smith MD Work Phone: [facility] Comment on above: 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) Start: 05-24-2023 Orders Only Jennie barlow CHILD CARE LEADER-DENTURE FINISHER Work Phone: [facility] Comment on above: Herniated lumbar int ervertebral disc (Primary Dx); Lumbar radiculopathy, chronic Start: 05-23-2023 End: 05-23-2023 ambulatory Tee Peterson [facility] Work Phone: Start: 05-23-2023 End: 05-23-2023 Departed Referred MD Tee Peterson Work Phone: [facility] Start: 05-16-2023 End: 05-16-2023 ambulatory ROHIT SMITH V [facility] Start: 05-16-2023 End: 05-16-2023 Office outpatient new 30 minutes Rohit Smith MD Work Phone: [facility] Comment on above: 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); Finger injury, right, initial encounter Start: 05-15-2023 Orders Only Jennie barlow CHILD CARE LEADER-DENTURE FINISHER Work Phone: [facility] Comment on above: Herniated lumbar int ervertebral disc (Primary Dx) Start: 05-10-2023 End: 05-10-2023 ambulatory Johnathon Winter Other [facility] [email or web address] Other Start: 05-10-2023 Encounter by kriss Winter [facility] Start: 05-10-2023 Non-patient / Non-visit MD Jones Work Phone: [facility] Professional [employer] Work Phone: Start: 05-08-2023 End: 05-08-2023 Office outpatient new 45 minutes Jennie Colon CHILD CARE LEADER-DENTURE FINISHER Work Phone: [facility] Comment on above: Lumbar radiculopathy , chronic (Primary Dx); Urinary incontinence without sensory awareness; Sensory deficit, left; Spinal stenosis of lumbar region with neurogenic claudication Start: 05-04-2023 End: 05-04-2023 Office outpatient visit 10 minutes Everett Okeefe NP Work Phone: [facility] Comment on above: 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); Pain in finger of right hand Start: 04-19-2023 End: 04-19-2023 ambulatory Scottie Lyn Other [employer] Other Start: 04-19-2023 Telephone encounter Scottie Lyn [facility] Start: 04-14-2023 End: 04-14-2023 ambulatory JOHNATHON WINTER [facility] Comment on above: Back pain, unspecifi ed back location, unspecified back pain laterality, unspecified chronicity (Primary Dx) Start: 04-14-2023 End: 04-14-2023 Office outpatient visit 15 minutes Kal Martinez APRN-DENTURE FINISHER Work Phone: [facility] Comment on above: Acute left-sided low back pain with left-sided sciatica (Primary Dx) Start: 04-12-2023 End: 04-12-2023 ambulatory Johnathon Winter Other [employer] Other Start: 04-12-2023 Telephone encounter Johnathon Winter [facility] Start: 04-11-2023 End: 04-11-2023 ambulatory Johnathon Winter Other [employer] Other Start: 04-11-2023 Telephone encounter Johnathon Winter [facility] Start: 04-10-2023 End: 04-10-2023 ambulatory Johnathon Winter Other [employer] Other Start: 04-10-2023 Encounter by kriss Winter [facility] Start: 01-30-2023 End: 01-30-2023 ambulatory Johnathon Winter Other [employer] Other Start: 01-30-2023 Telephone encounter Johnathon Winter [facility] Start: 01-02-2023 End: 01-02-2023 ambulatory Johnathon Winter Other [employer] Other Start: 01-02-2023 Office outpatient vi sit 15 minutes Johnathon Winter [facility] Start: 12-09-2022 End: 12-09-2022 ambulatory Johnathon Winter Other [employer] Other Start: 12-09-2022 Telephone encounter Johnathon Winter [facility] Start: 12-08-2022 End: 12-08-2022 ambulatory Johnathon Winter Other [employer] Other Start: 12-08-2022 Telephone encounter Johnathon Winter [facility] Start: 2022 End: 2022 ambulatory Johnathon Winter Other [employer] Other Start: 2022 Office outpatient ne w 30 minutes Johnathon Winter [facility] Start: 10-11-2022 End: 10-11-2022 Emergency department patient visit [facility]ATHON [facility] Start: 10-11-2022 End: 10-11-2022 Emergency [...] 02-16-2022 Emergency department patient visit JOHNATHON W[facility] Start: 01-03-2022 End: 01-03-2022 Emergency department patient visit JOHNATHON WINTER [facility] Start: 01-03-2022 End: 01-03-2022 Emergency [...] Radex foot complete minimum 3 views Georgi Whitney Velma DPM Work Phone: Start: 09-17-2024 Radex foot [...] ion [Identifier] in Cervix by Cyto stain Butr Meyer APRN-DENTURE FINISHER Work Phone: Start: 07-16-2024 Radex foot complete minimum 3 views Georgi Whitney Velma DPM Work Phone: Start: 04-01-2024 MLR [...] Start: 11-29-2023 [facility] TESTOSTERONE FREE/TOT EQUILIB Sanjeev Suggso DO Work Phone: Start: 06-12-2023 Follow-up visit Follow-up ROHIT CAMEJO V Start: 10-11-2022 Radex ankle complete minimum 3 views Bailee Lew CHILD CARE LEADER - DENTURE FINISHER Work Phone: Start: 01-03-2022 Urinalysis microscopic only Zachariah Cristian CHILD CARE LEADER - PLASTIC BATTERY ASSEMBLER Work Phone: Start: 01-03-2022 Urnls dip stick/tabl et rgnt auto w/o microscopy Zachariah Foster CHILD CARE LEADER - PLASTIC BATTERY ASSEMBLER Work Phone: Start: 01-03-2022 Ct abdomen & pelvis w/contrast material Zachariah Foster CHILD CARE LEADER - PLASTIC BATTERY ASSEMBLER Work Phone: Start: 01-03-2022 Assay of lipase Zachariah Foster CHILD CARE LEADER - PLASTIC BATTERY ASSEMBLER Work Phone: Start: 12-01-2021 Adult depression scr eening assessment Serina Rodriguez RMA Start: 08-19-2021 Ct lumbar spine w/o contrast material Radha Sanders MD Work Phone: Plan of Treatment Date Care Activity Detail Author Start: 07-23-2027 Screening for malignant neoplasm of cervix Pap Smear [facility] Start: 10-21-2025 Tobacco Screening Tobacco Screening [facility] Start: 08-08-2025 Adult BMI Screening Adult BMI Screening [facility] Start: 07-31-2025 Adult BMI Screening Adult BMI Screening [facility] Start: 07-31-2025 Tobacco Screening Tobacco Screening [facility] Start: 07-29-2025 End: 07-29-2025 Patient encounter procedure [facility] Start: 01-29-2025 End: 01-29-2025 Patient encounter procedure 01/29/2025 9:00 AM EDT Office Visit [facility] [address] [place] [phone] Georgi Carreon, DPMiles [address] [place] [address] [facility] Start: 01-25-2025 Adult BMI Screening Adult BMI Screening [facility] Start: 01-25-2025 Tobacco Screening Tobacco Screening [facility] Start: 01-17-2025 Adult BMI Screening Adult BMI Screening [facility] Start: 01-02-2025 Tobacco Screening Tobacco Screening [facility] Start: 12-02-2024 Influenza vaccination Influenza Vaccine [facility] Start: 10-29-2024 End: 10-29-2024 Patient encounter procedure [facility] Comment on above: Arrived Start: 09-18-2024 End: 09-18-2024 Patient encounter procedure 09/18/2024 1:15 PM EDT Office Visit [facility] [address] [place] [phone] Georgi Carreon, DPM [address] [place] [address] [facility] Start: 09-17-2024 End: 09-17-2024 Patient encounter procedure 09/17/2024 9:45 AM EDT Office Visit [facility] [address] [place] [phone] Georgi Carreon, DPM [address] [place] [address] [facility] Comment on above: Arrived Start: 09-04-2024 End: 09-04-2024 Patient encounter procedure [facility] Comment on above: Arrived Start: 08-21-2024 End: 08-21-2024 Patient encounter procedure [facility] Comment on above: Arrived Start: 08-08-2024 End: 08-08-2024 Admission to same day surgery center 08/08/2024 7:30 AM EDT - 08/08/2024 10:[address] [facility] - Surgery [address] [place] [phone] Georgi Carreon DPM [address] [place], [place] [id number] FUSION LAPIDUS & CPT 00271 [34859 (CPT )] [facility] - Surgery Comment on above: FUSION LAPIDUS & CPT 86554 [22506 (CPT ) ] Start: 08-08-2024 End: 08-08-2024 Corrj hallux valgus w/sesmdc w/1metar medial cnf FUSION [employer] left foot hallux valgus, deformity of 2nd & 5th metatarsal, acquired deformity of toe, equinus contracture, 5th metatarsal tailors bunion 08/08/2024 7:30 AM EDT [facility] Start: 08-08-2024 End: 08-08-2024 Gastrocnemius recession REPAIR MUSCLE RECESSION GASTROCNEMIUS left foot hallux valgus, deformity of 2nd & 5th metatarsal, acquired deformity of toe, equinus contracture, 5th metatarsal tailors bunion 08/08/2024 7:30 AM EDT [facility] Start: 08-08-2024 End: 08-08-2024 Osteot w/wo lngth shrt/corrj metar xcp 1st ea OSTEOTOMY JENNIFER METATARSAL left foot hallux valgus, deformity of 2nd & 5th metatarsal, acquired deformity of toe, equinus contracture, 5th metatarsal tailors bunion 08/08/2024 7:30 AM EDT [facility] Start: 08-08-2024 End: 08-08-2024 Rcnstj angular dfrm toe soft tiss px only EXCISION SOFT TISSUE FOOT left foot hallux valgus, deformity of 2nd & 5th metatarsal, acquired deformity of toe, equinus contracture, 5th metatarsal tailors bunion 08/08/2024 7:30 AM EDT [facility] Start: 08-08-2024 Subsequent hospital visit by physician 08/08/2024 7:30 AM EDT Hospital Encounter [facility] - Surgery [address] [place] [phone] Georgi Carreon DPM [address] [place], [place] [phone] [facility] - Surgery Start: 07-31-2024 End: 07-31-2024 Patient encounter procedure [facility] Comment on above: Arrived Start: 07-22-2024 End: 07-22-2024 [facility] Comment on above: Arrived Start: 07-22-2024 End: 09-21-2025 MG Breast - bilateral Screening Bilateral screening mammogram Imaging Routine Breast cancer screening by mammogram Expected: 07/22/2024 (Approximate), Expires: 09/21/2025 [facility] Comment on above: Expected: 07/22/2024 (Approximate), Expi res: 09/21/2025 Start: 07-16-2024 End: 07-16-2024 Patient encounter procedure 07/16/2024 9:00 AM EDT Office Visit [facility] [address] [place] [phone] Georgi Carreon, DPMiles [address] [place], [place] [phone] Arrived [facility] Comment on above: Arrived Start: 06-11-2024 Adult BMI Screening Adult BMI Screening [facility] Start: 06-11-2024 Tobacco Screening Tobacco Screening [facility] Start: 05-16-2024 Adult BMI Screening Adult BMI Screening [facility] Start: 05-16-2024 Tobacco Screening Tobacco Screening [facility] Start: 05-08-2024 Adult BMI Screening Adult BMI Screening [facility] Start: 05-08-2024 Tobacco Screening Tobacco Screening [facility] Start: 04-14-2024 Adult BMI Screening Adult BMI Screening [facility] Start: 04-14-2024 Tobacco Screening Tobacco Screening [facility] Start: 02-26-2024 End: 04-27-2025 MG Breast - bilateral Diagnostic Bilateral diagnostic mammogram Imaging Routine Breast pain Expected: 02/26/2024 (Approximate), Expires: 04/27/2025 [facility] Work Phone: Comment on above: Expected: 02/26/2024 (Approximate), Expi res: 04/27/2025 Start: 02-26-2024 End: 02-26-2024 Patient encounter procedure 02/26/2024 10:00 AM EST Office Visit [facility] [address] [place] [address] Sanjeev Lopez [address] [place] [address] Arrived [facility] Comment on above: Arrived Start: 01-25-2024 End: 01-25-2024 Admission to same day surgery center 01/25/2024 10:00 AM EDT - 01/25/2024 1:59 PM EDT Surgery [facility] [address] [place] [phone] [address] [place] [address] PANNICULECTOMY [facility] Comment on above: PANNICULECTOMY Start: 01-25-2024 End: 01-25-2024 PANNICULECTOMY PANNICULECTOMY Panniculitis affecting regions of neck and back, site unspecified 01/25/2024 10:00 AM EDT [facility] Start: 01-25-2024 Subsequent hospital visit by physician 01/25/2024 10:00 AM EDT Hospital Encounter [facility] [address] [place] [phone] [place] [address] [facility] Start: 01-03-2024 End: 01-03-2024 Patient encounter procedure [facility] Comment on above: Arrived Start: 12-22-2023 End: 12-22-2023 Patient encounter procedure 12/22/2023 10:00 AM EDT Procedure Visit [facility] Sanjeev Lopez, [address] [place] [address] [facility] Start: 12-06-2023 End: 12-05-2024 [...] Hormone disorder Expected: 12/06/2023 (Approximate), Expires: 12/05/2024 [facility] Comment on above: Expected: 12/06/2023 (Approximate), Expi res: 12/05/2024 Start: 12-06-2023 End: 12-05-2024 Thyroglobulin Thyroglobulin Lab Routine Hormone disorder Expected: 12/06/2023 (Approximate), Expires: 12/05/2024 [facility] Comment on above: Expected: 12/06/2023 (Approximate), Expi res: 12/05/2024 Start: 12-06-2023 End: 12-05-2024 Thyroglobulin Antibody Thyroglobulin Antibody Lab Routine Hormone disorder Expected: 12/06/2023 (Approximate), Expires: 12/05/2024 [facility] Comment on above: Expected: 12/06/2023 (Approximate), Expi res: 12/05/2024 Start: 12-06-2023 End: 12-05-2024 Thyrotropin [Units/volume] in Serum or Plasma [facility] Comment on above: Ordered: 12/06/2023 Expected: 12/06/2023 (Approximate), Expires: 12/05/2024 Start: 12-06-2023 End: 12-06-2023 Patient encounter procedure 12/06/2023 11:30 AM EDT Procedure Visit [facility] [address] [place] [phone] Sanjeev Lopez, [place] [address] [facility] Start: 12-03-2023 Influenza vaccination Influenza Vaccine [facility] Start: 11-29-2023 End: 11-28-2024 DHEA-sulfate DHEA-sulfate Lab Routine Decreased libido Expected: 11/29/2023 (Approximate), Expires: 11/28/2024 [facility] Comment on above: Expected: 11/29/2023 (Approximate), Expi res: 11/28/2024 Start: 11-29-2023 End: 11-29-2023 Patient encounter procedure 11/29/2023 1:50 PM EDT Office Visit [facility] [address] [place] [place] [phone] Sanjeev Lopez, DO [address] [place] [address] Arrived [facility] Comment on above: Arrived Start: 07-19-2023 End: 07-19-2023 Patient encounter procedure 07/19/2023 1:45 PM EDT Office Visit [facility] [address] [facility] [address] [place] [phone] Vishal Martin DO [address] [facility] [address] [place] [address] [facility] Start: 07-17-2023 End: 07-17-2023 Patient encounter procedure 07/17/2023 10:00 AM EDT Office Visit [facility] [address] [place] [phone] Sanjeev Lopez DO [address] [place] [address] [facility] Start: 06-12-2023 End: 06-12-2023 Patient encounter procedure 06/12/2023 10:05 AM EDT Office Visit [facility] [address] [facility] [address] [place] [address] Rohit Smith MD [address] [place] [address] [facility] Start: 05-19-2023 End: 05-19-2023 Patient encounter procedure 05/19/2023 10:[address] [facility] - MRI Imaging [address] [place] [address] [facility] - [facility] Imaging Start: 05-16-2023 End: 05-16-2023 Patient encounter procedure 05/16/2023 1:45 PM EST Office Visit [facility] [address] [facility] [address] [place] [address] Rohit Smith MD [address] [place] [address] [facility] Start: 05-08-2023 End: 05-08-2024 MR Lumbar spine WO contrast MR lumbar spine without contrast Imaging Routine Lumbar radiculopathy, chronic Urinary incontinence without sensory awareness Sensory deficit, left Spinal stenosis of lumbar region with neurogenic claudication Expected: 05/08/2023, Expires: 05/08/2024 [facility] Work Phone: Comment on above: Expected: 05/08/2023, Expires: 5 Start: 05-08-2023 End: 05-08-2023 Patient encounter procedure 05/08/2023 1:30 PM EST Office Visit [facility] [address] [place] [phone] Jennie Colon, CHILD CARE LEADER-DENTURE FINISHER [address] [facility] [address] [place] [address] [facility] Start: 04-14-2023 End: 04-14-2024 XR Lumbar spine Views W flexion and W extension X-ray spine lumbar ap, lateral, flexion and extension only Imaging Routine Back pain, unspecified back location, unspecified back pain laterality, unspecified chronicity Expected: 04/14/2023, Expires: 04/14/2024 [facility] Work Phone: Comment on above: Expected: 04/14/2023, Expires: 5 Start: 12-02-2022 Influenza vaccination Influenza Vaccine [facility] Start: 12-01-2022 Depression Screening Depression Screening [facility] Start: 11-01-2022 Influenza vaccination Flu vaccine (#1) T-Quad 22 Start: 09-03-2022 Adult BMI Follow Up Plan Adult BMI Follow Up Plan [facility] Start: 12-02-2021 Influenza vaccination Flu vaccine (Season Ended) [facility] [employer] [facility] Start: 11-01-2021 Influenza vaccination Flu vaccine (#1) T-Quad 22 Start: 2017 Diabetes screen Diabetes screen [facility] Start: 2012 Screening for malignant neoplasm of cervix [facility] Start: 12-01-2003 Screening for malignant neoplasm of cervix Pap smear [facility] Start: 2001 DTaP,Tdap and Td Vaccines (1 - Tdap) DTaP,Tdap and Td Vaccines (1 - Tdap) [facility] Start: 2001 DTaP/Tdap/Td vaccine (1 - Tdap) DTaP/Tdap/Td vaccine (1 - Tdap) [facility] Start: 2000 Adult BMI Follow Up Plan Adult BMI Follow Up Plan [facility] Start: 2000 Hepatitis C screening Hepatitis C screen [facility] Start: 1994 Depression Screen Depression Screen [facility] Start: 1994 Depression Screening Depression Screening [facility] Start: 12-01-1987 COVID-19 Vaccine (1) COVID-19 Vaccine (1) [facility] Start: 12-01-1983 Varicella vaccine (1 of 2 - 2-dose childhood series) Varicella vaccine (1 of 2 - 2-dose childhood series) [facility] Start: 06-01-1983 COVID-19 Vaccine (#1) COVID-19 Vaccine (#1) [facility] Endometrial biopsy Endometrial b iopsy Procedures Routine Menorrhagia with regular cycle Abnormal uterine bleeding (AUB) Pelvic pain Ordered: 12/06/[address] [facility] Work Phone: Comment on above: Ordered: 12/06/2023 Estradiol Estradiol Lab Ro utine Hormone disorder Ordered: 12/06/[address] [facility] Comment on above: Ordered: 12/06/2023 Estrone Estrone Lab Rout ine Hormone disorder Ordered: 12/06/[address] [facility] Comment on above: Ordered: 12/06/2023 Ferritin [Mass/volum e] in Serum or Plasma Ferritin Lab Routine Hormone disorder Ordered: 12/06/[address] [facility] Comment on above: Ordered: 12/06/2023 Hemoglobin A1c/Hemoglobin.total in Blood Hemoglobin A1c Lab Routine Hormone disorder Ordered: 12/06/[address] [facility] Comment on above: Ordered: 12/06/2023 Progesterone Progesterone Lab Routine Hormone disorder Ordered: 12/06/[address] [facility] Comment on above: Ordered: 12/06/2023 Sex hormone binding globulin Sex hormone binding globulin Lab Routine Decreased libido Ordered: 11/29/[address] [facility] Comment on above: Ordered: 11/29/2023 T3, reverse T3, reverse Lab Routine Hormone disorder Ordered: 12/06/[address] [facility] Comment on above: Ordered: 12/06/2023 TESTOSTERONE, FREE TESTOSTERONE, FREE Lab Routine Decreased libido Ordered: 11/29/[address] [facility] Work Phone: Comment on above: Ordered: 11/29/2023 Testosterone, free, total Testos terone, free, total Lab Routine Decreased libido Ordered: 11/29/[address] [facility] Comment on above: Ordered: 11/29/2023 Testosterone, free, total Testos terone, free, total Lab Routine Hormone disorder Ordered: 12/06/[address] [facility] Comment on above: Ordered: 12/06/2023 THIN PREP TIS PAP AN D HR HPV DNA THIN PREP TIS PAP AND HR HPV DNA Pathology and Cytology Routine Well woman exam with routine gynecological exam Ordered: 07/22/[address] [facility] Work Phone: Comment on above: Ordered: 07/22/2024 Thyroid peroxidase antibody Thyroid peroxidase antibody Lab Routine Hormone disorder Ordered: 12/06/[address] [facility] Comment on above: Ordered: 12/06/2023 Thyroxine (T4) free [Mass/volume] in Serum or Plasma T4, free Lab Routine Hormone disorder Ordered: 12/06/[address] [facility] Comment on above: Ordered: 12/06/2023 Triiodothyronine (T3 ) Free [Mass/volume] in Serum or Plasma T3, free Lab Routine Hormone disorder Ordered: 12/06/[address] [facility] Comment on above: Ordered: 12/06/2023 Vitamin D 1,25 dihydroxy Vitamin D 1,25 dihydroxy Lab Routine Hormone disorder Ordered: 12/06/[address] [facility] Comment on above: Ordered: 12/06/2023 Vitamin D 1,25 dihydroxy Vitamin D 1,25 dihydroxy Lab Routine Vitamin D insufficiency Ordered: 07/16/[address] [facility] Work Phone: Comment on above: Ordered: 07/16/2024 [facility] Payers Date Payer Category Payer Unknown [id number] 2023 Self-pay 2022 [employer] [id number] 2022 [employer] Cross Blue Shie ld Managed Care - PPO [id number] 2022 Unknown [id number] [id number] [id number] 2022 Unknown [id number] 2020 Unknown [id number] 1.2.840.895961.1.13.239.2.7.3.6786 71.315 1982 Unknown [id number] 2.840.1.347676.3.579.2.593 1982 Unknown [id number] 2.840.1.785252.3.579.2.593 1982 Unknown [id number] 2.840.1.240852.3.579.2.175 1982 Unknown [id number] 2.840.1.093308.3.579.2.175 1982 Unknown [id number] 2.840.1.136143.3.579.2.175 1982 Unknown [id number] 2.16840.1.691666.3.579.2.1286 1982 Unknown [id number] 2.16840.1.837094.3.579.2.1286 1982 Unknown [id number] 2.16840.1.507340.3.579.2.1286 1982 Unknown [id number] 2.16840.1.772550.3.579.2.196 1982 Unknown [id number] 2.16.840.1.214951.3.579.2. 1982 Unknown [id number] 2.0.1.338983.3.579.2. 1982 Unknown [id number] 2.840.1.346840.3.579.2. 1982 Unknown [id number] 2.0.1.828756.3.579.2. 1982 Unknown [id number] 2.0.1.899944.3.579.2.1285 1982 Unknown [id number] .1.002258.3.579.2.1285 1982 Unknown [id number] .1.469967.3.579.2.1285 1982 Unknown [id number] .1.549488.3.579.2.1285 1982 Unknown [id number] 05.19.830.1.347413.3.579.2. 1982 Unknown [id number] .1.882259.3.579.2. 1982 Unknown [id number] .1.254979.3.579.2. 1982 Unknown [id number] .1.907898.3.579.2.1285 1982 Unknown [id number] 05.19.830.1.879929.3.579.2.1285 1982 Unknown [id number] .1.503425.3.579.2.1285 1982 Unknown [id number] 05.19.830.1.370565.3.579.2.1285 1982 Unknown [id number] 05.19.830.1.078205.3.579.2.1285 1982 Unknown [id number] 05.19.830.1.118756.3.579.2.128 1982 Unknown [id number] 05.19.830.1.340205.3.579.2.1285 1982 Unknown [id number] 840.1.712474.3.579.2.1285 1982 Unknown [id number] 05.19.830.1.104400.3.579.2.1285 1982 Unknown [id number] 1980 Unknown [id number] .1.530226.3.579.2.1285 1980 Unknown [id number] .1.097220.3.579.2.1285 1982 Unknown [id number] .1.014624.3.579.2.1285 1982 Unknown [id number] .1.399479.3.579.2.1258 1982 Unknown [id number] .1.719062.3.579.2.1258 1982 Unknown [id number] .1.267663.3.579.2.1258 1982 Unknown [id number] .1.672698.3.579.2.1258 1982 Unknown [id number] .1.412896.3.579.2.1258 1982 Unknown [id number] .1.686308.3.579.2.1258 1982 Unknown [id number] 05.19.830.1.539933.3.579.2.1258 1982 Unknown [id number] 05.19.830.1.172781.3.579.2.1258 1982 Unknown [id number] 2.16.840.1.383107.3.579.2.1258 1982 Unknown [id number] 2.16.840.1.749768.3.579.2.1258 1982 Unknown [id number] 2.16.840.1.724550.3.579.2.1258 1982 Unknown [id number] 2.16.840.1.132700.3.579.2.1258 1982 Unknown [id number] 2.16.840.1.061120.3.579.2.1258 1982 Unknown [id number] 2.16.840.1.514406.3.579.2.1258 1982 Unknown [id number] 2.16.840.1.812453.3.579.2.9 1959 Unknown [id number] Unknown [id number] 2.16.840.1.250998.3.579.2.531 Social History Date Type Detail Facility Start: 06-15-2015 End: 03-31-2022 Tobacco smoking status [facility] Never smoked tobacco [facility] Start: 06-15-2015 End: 03-31-2022 Tobacco use and exposure Smokeless tobacco non-user [facility] Phone: Start: 08-19-2021 End: 10-21-2024 Alcohol intake Current non-drinker of alcohol (finding) [facility] Phone: Start: 05-14-2020 End: 08-19-2021 Alcohol intake [facility] Phone: Start: 06-15-2015 History SDOH Alcohol Comment rarely [facility] Phone: Start: 1980 Sex Assigned At Not on file [facility] Phone: Start: 08-09-2021 End: 01-03-2022 Exposure to SARS-CoV-2 (event) Not sure [facility] Phone: History of tobacco use Passive smoker [facility] [employer] Work Phone: Start: 05-14-2020 End: 05-04-2023 Sex Assigned At [facility] [email or web address] Other Start: 05-04-2023 End: 10-29-2024 Alcohol intake Ex-drinker (finding) [facility] Start: 10-09-2022 Alcohol Comment Alcohol: 1 or 2 drinks on typical day/monthly or less. Caffeine: 1-2 cups/day tea [facility] Start: 1980 Sex Assigned At Female N [facility] Start: 09-21-2022 Gender identity Identifies as female gender (finding) [facility] Start: 09-21-2022 Sexual orientation Heterosexual (fin ding) [facility] Has the electric, gas, oil, or water company threatened to shut off services in your home in past 12Mo No [facility] Adolescent depressio n screening assessment 0 [facility] Start: 11-06-2014 End: 07-29-2024 Sex Female (finding) [facility] Tobacco smoking status NHIS Unknown if ever smoked [facility] Work Phone: NEGATED: Highlighted row [facility] Medical Equipment Procedure Code Equipment Code Equipment Origin al Text Equipment Identifier Dates [id number], [id number], [id number] Start: 09-14-2023 End: 12-13-2023 Staple [id number] S tr Grt Wht Jaws Ntnl Bn Rpl [id number] - Sna - [id number] Start: 08-08-2024 Staple [id number] S tr Grt Wht Jaws Ntnl Bn Rpl [id number] - Sna - [id number] Start: 08-08-2024 Screw Bn 13mm 2m m Bite Mnstr St Ns - Sna - [id number] Start: 08-08-2024 Screw Bn 10mm 2m m Hd Mn-Mnstr St Ns - [id number] Start: 08-08-2024 Goals Date Patient Goal Desired Activity /State Personal health goal Comment on above: Formatting of this n ote might be different from the original. Evaluation of progress towards goal: johns removal; pain management Clinical Notes 08-19-2021 to 10-29-2024 Georgi Chelo Velma, DPMiles - 10/29/2024 9:00 AM Cabrera Carreon, DPMiles - 09/17/2024 9:45 AM CATRACHOaiden Carreon, DPM - 09/04/2024 8:30 AM EDTSmoira Nelson MA - 08/21/2024 1:00 PM EDT [...] Morbid obesity with BMI of 45.0-49.9, adult ([facility]) PCOS (polycystic ovarian syndrome) Pre-diabetes Rectal bleeding [...] the morning., Disp: , Rfl: glucose blood (TrueViewuch Verio) test strip, Use as instructed, Disp: 100 each, Rfl: 3 Lancets (StyloolaTouch Delica Plus [id number]) misc, , Disp: , Rfl: losartan (Cozaar) [...] Disp: 2 mL, Rfl: 3 nystatin (Mycostatin) 089691 UNIT/GM powder, Apply topically 3 (three) times [...] Surgical History: Procedure Laterality Date APPENDECTOMY 2007 BREAST BIOPSY SECTION, LOW TRANSVERSE 04/2019 SECTION, [...] Comments: Presents to clinic weight-bearing unassisted in [facility]. Accompanied by her . HENT: Head: Normocephalic [...] Georgi Carreon DPM documented in this encounter [facility] 09-17-2024 History of Present illness Narrative Images [...] Morbid obesity with BMI of 45.0-49.9, adult ([facility]) PCOS (polycystic ovarian syndrome) Pre-diabetes Rectal bleeding Off and on since 2018 Weight gain Medications Current Outpatient Medications: Alcohol Swabs (B-D SINGLE USE SWABS REGULAR) pads, , Disp: , Rfl: amLODIPine (Norvasc) 10 MG tablet, Take 10 mg by mouth in the morning., Disp: , Rfl: Blood Glucose Monitoring Suppl (Architurn-PayAllies Glucometer) w/Device kit, 1 kit Daily Use [...] the morning., Disp: , Rfl: glucose blood (StyloolaTouch Verio) test strip, Use as instructed, Disp: 100 each, Rfl: 3 Lancets (OneTouch Delica Plus Hzjlfi42X) [facility], , Disp: , Rfl: losartan (Cozaar) 100 MG tablet, Take 100 mg by mouth Daily, Disp: , Rfl: metoprolol succinate XL (Toprol-XL) 50 MG 24 hr tablet, Take 50 mg by mouth 1 (one) time each day at the same time, Disp: , Rfl: MONOJECT 3CC SYRINGE 3 ML [facility], , Disp: , Rfl: Mounjaro 12.5 MG/0.5ML [...] boot. Referral sent to PT link in [place]. I will follow up with her in [...] Georgi Carreon DPM documented in this encounter [facility] 09-04-2024 History of Present illness Narrative Images [...] Disp: , Rfl: Blood Glucose Monitoring Suppl (D-PayAllies Glucometer) w/Device kit, 1 kit Daily Use [...] the morning., Disp: , Rfl: glucose blood (StyloolaTouch Verio) test strip, Use as instructed, Disp: 100 each, Rfl: 3 Lancets (OneTouch Delica Plus Ncrgec12S) misc, , Disp: , Rfl: losartan (Cozaar) [...] Georgi Carreon DPM documented in this encounter [facility] 08-21-2024 History of Present illness Narrative \ [...] each, Rfl: 3 Lancets (OneTouch Delica Plus Jactwe71U) mis, , Disp: , Rfl: losartan (Cozaar) [...] Georgi Carreon DPM documented in this encounter [facility] 08-05-2024 Note PR Cardiology - [facility] Subjective Karuna Dumont is a 43 y.o. year old female being seen for follow up medication changes and renal artery duplex. Echo is scheduled for tomorrow at [facility] in [place]. She needs cleared for foot surgery scheduled for at [facility] also. BP has been much [...] Outpatient Medications: amLODIPin (more content not included)... [facility] 07-31-2024 Instructions Mary Ellen Castellon RN - 07/31/2024 2:15 PM EDT Preoperative Education Checklist- General Surgery date: 08/08/24 Surgery time: 0730 a.m. Arrival time: 0610 a.m. 1. Bring a photo ID and your insurance card with you the day of surgery. You will check in at the main lobby of the [facility]- registration desk is straight ahead as soon as you walk in. Tell them you are here for surgery. 2. If you have a Living Will/Durable Power of Crew Boss for Health Care that is not on [...] after you have bathed. 5. NO nail guatemalan/acrylic on at least one finger. If you are having a hand, wrist or foot surgery then all nail guatemalan and artificial/acrylic nails must be removed from [...] please call the Preadmission Testing office at [phone], Mon.-Fri. 7 a.m.-3 p.m. Leave a voicemail [...] with your doctor. documented in this encounter [facility] 07-31-2024 Miscellaneous Notes Preoperative Education Checklist- General Surgery date: 08/08/24 Surgery time: 0730 a.m. Arrival time: 0610 a.m. 1. Bring a photo ID and your insurance card with you the day of surgery. You will check in at the main lobby of the [facility]- registration desk is straight ahead as soon as you walk in. Tell them you are here for surgery. 2. If you have a Living Will/Durable Power of Crew Boss for Health Care that is not on [...] after you have bathed. 5. NO nail guatemalan/acrylic on at least one finger. If you are having a hand, wrist or foot surgery then all nail guatemalan and artificial/acrylic nails must be removed from [...] please call the Preadmission Testing office at [phone], Mon.-Fri. 7 a.m.-3 p.m. Leave a voicemail [...] her ECHO completed. documented in this encounter [facility] 07-31-2024 Nurse Note Preoperative Education Checklist- General Surgery date: 08/08/24 Surgery time: 0730 a.m. Arrival time: 0610 a.m. 1. Bring a photo ID and your insurance card with you the day of surgery. You will check in at the main lobby of the [facility]- registration desk is straight ahead as soon as you walk in. Tell them you are here for surgery. 2. If you have a Living Will/Durable Power of Crew Boss for Health Care that is not on [...] after you have bathed. 5. NO nail guatemalan/acrylic on at least one finger. If you are having a hand, wrist or foot surgery then all nail guatemalan and artificial/acrylic nails must be removed from [...] please call the Preadmission Testing office at [phone], Mon.-Fri. 7 a.m.-3 p.m. Leave a voicemail [...] to the follow-up appointment with your doctor. [facility] 07-31-2024 Nurse Note Hibiclens and surgical instructions reviewed. Patient verbalized understanding. [facility] 07-31-[address] Nurse [address]ette [address] Dr Carreon's office notified of need for cardiac clearance once patient has her ECHO completed. [facility] 07-31-2024 History of Present illness Narrative Images [...] Disp: , Rfl: Blood Glucose Monitoring Suppl (AnySource Media Glucometer) w/Device kit, 1 kit Daily Use [...] instructed, Disp: 100 each, Rfl: 3 Lancets (StyloolaTouch Delica Plus Gujujp02I) misc, , Disp: , Rfl: losartan (Cozaar) 100 MG tablet, Take 100 mg by mouth Daily, Disp: , Rfl: metoprolol succinate XL (Toprol-XL) 50 MG 24 hr tablet, Take 50 mg by mouth 1 (one) time each day at the same time, Disp: , Rfl: MONOJECT 3CC SYRINGE 3 ML mis, , Disp: , Rfl: Mounjaro 12.5 MG/0.5ML [...] Georgi Carreon DPM documented in this encounter [facility] 07-22-2024 History of Present illness Narrative Reason [...] (LEXAPRO) 10 mg, Daily RT glucose blood (StyloolaTouch Verio) test strip Use as instructed Lancets (StyloolaTouch Delica Plus Egnadp91L) misc losartan (COZAAR) 100 mg, Daily metoprolol [...] Morbid obesity with BMI of 45.0-49.9, adult ([facility]) PCOS (polycystic ovarian syndrome) Pre-diabetes Rectal bleeding Off and on since 2018 HISTORY PAST MEDICAL HISTORY SOCIAL HISTORY Past Medical History: Diagnosis Date Encounter for gynecological examination (general) (routine) without abnormal findings Fibrocystic breast 05/2022 Frequent headaches Hirsutism Hypertension (CMS/HCC) Labial cyst Menorrhagia Migraine Chronic Morbid obesity with BMI of 45.0-49.9, adult ([facility]) PCOS (polycystic ovarian syndrome) Pre-diabetes Rectal bleeding [...] nursing note reviewed. Exam conducted with a airplane electrical repairer present. Vitals: Estimated body mass index is [...] Sanjeev Lopez DO documented in this encounter [facility] 07-16-2024 History of Present illness Narrative Images [...] Disp: 1 kit, Rfl: 0 glucose blood (StyloolaTouch Verio) test strip, Use as instructed, Disp: 100 each, Rfl: 3 Lancets (StyloolaTouch Delica Plus Zgryap85S) misc, , Disp: , Rfl: MONOJECT 3CC [...] Surgical History: Procedure Laterality Date APPENDECTOMY 2007 BREAST BIOPSY SECTION, LOW TRANSVERSE 04/2019 SECTION, [...] Georgi Carreon DPM documented in this encounter [facility] 07-03-2024 Note PR Cardiology - [facility] Subjective Karuna Dumont is a [...] Swelling and Unknown Medications Current Outpatient Medications: ufigtdgmhy-msjgafnrvjxpp-bflv (Fioricet) 50-300-40 mg capsule, Take 50 capsules [...] (one) time per week., Disp: , Rfl: zkthlkennbrw-oiq-mwzn-FA-vit K 18 mg iron-400 mcg-25 mcg tablet, Take by mouth., Disp: , Rfl: ondansetron ODT (Zofran-ODT) 4 mg disintegrating tablet, Take 4 mg by mouth every 8 (eight) (more content not included)... [facility] 06-28-2024 Note Education Materials Neurology Migraine Headache [...] these instructions at home: Medicines ? Take dzfn-jnh-dwlzffr and prescription medicines only as told by your provider. ? Ask your provider if the medicine prescribed to you: ? Requires you to avoid driving or using machinery. ? Can cause constipation. You may need to take these actions to prevent or treat constipation: ? Drink enough fluid to keep your pee (urine) pale yellow. ? Take hwid-qzv-syotfme or prescription medicines. ? Eat foods that [...] treatment. Where to find more information ? [facility] and M (more content not included)... [facility] 02-14-2025 Evaluation note Diagnosis Onset Date Resolution Adult ADHD acute May 17, 2024 10:57am Benign essential HTN acute Febr 2024 10:57am [facility] Work Phone: 1(521) 220-619901-09-2025 Evaluation note* Diagnosis Onset Date Resolution Status Admit Date Adult ADHD acute April 11, 025 9:46am Benign essential HTN acute [place] 2024 9:46am Wellness examination acute [place] 2024 9:46am [facility] Work Phone: 1(139) 411-293712-20-2024 History of Present illness Narrative* Caitlyn Logan RN - 03/22/2024 1:[address] [facility] received referral for BRCA testing. Referral faxed to genetics. [facility] History of Present illness Narrative* Monique Cantrell LPN - 02/26/2024 10:00 AM EST Reason for [...] of 4times daily. Lancets (OneTouch Delica Plus Ijfgry78E) misc MONOJECT 3CC SYRINGE 3 ML misc [...] Name Age of Onset Hypertension Maternal Grandfather [place] Heart disease Maternal Grandfather [place] Stroke Maternal Grandfather [place] Cancer Maternal Grandfather [place] Drug abuse Maternal Grandfather [place] Drug abuse Father Tyrese Diabetes Paternal Grandfather [...] nursing note reviewed. Exam conducted with a airplane electrical repairer present. Vitals: Estimated body mass index is [...] of: Sanjeev Lopez DO documented in this encounterMer[facility] John'sHgubiealne12-36-2488 History of Present illness Narrative* Alfonso Liang MD - 01/26/2024 5:57 PM EDT 01/26/2024 6:12 PM Opened this encounter to order [place] but talked to patient's pharmacy that it was an insurance issue and they are going to fulfill the prescription now. No new orders were placed. Dr. Price made aware. ALFONSO LIANG MD PGY4 Gen Surg [employer]net documented in this encounterOhio[facility]10-[facility]-2024 NoteEducation Materials Neurology Migraine Headache A migraine [...] these instructions at home: Medicines ? Take dpjj-bil-fomyhxd and prescription medicines only as told by [...] Headache and Migraine Patients (CHAMP): headachemigraine.org ? [employer] Migraine Foundation: americanmigrainefoundation.org ? National Headache Foundation: [...] your health care p (more content not included)...[facility] [id number] History of Present illness Narrative* Tatum Atkinson [...] TAKE 1 TABLET BY MOUTH PREOP Lancets (StyloolaTouch Delica Plus Lkygci01X) misc MONOJECT 3CC SYRINGE 3 ML misc nystatin (Mycostatin) cream Topical, 2 times daily, Dispense cream that does NOT have perfumes added. TrueViewuch Verio test strip Qelbree 200 mg, Oral, [...] Name Age of Onset Hypertension Maternal Grandfather [place] Heart disease Maternal Grandfather [place] Stroke Maternal Grandfather [place] Cancer Maternal Grandfather [place] Drug abuse Maternal Grandfather [place] Drug abuse Father Tyrese Diabetes Paternal Grandfather [...] nursing note reviewed. Exam conducted with a airplane electrical repairer present. Vitals: Estimated body mass index is [...] of: Sanjeev Lopez DO documented in this encounterMercy Hospital St. John'[id number] History of Present illness Narrative* Tracie Octavio - 12/06/2023 11:30 AM EDT Reason for Appointment: Patient ID: Cnidy Dumont is a 43 y.o. female who presents for Endometrial Biopsy and Pre-op Visit Patient presents today for Pre Op/Endometrial Biopsy appointment. Patient is scheduled to undergo Endometrial Ablation with Mariel on 12/22/[address] Lopez at [facility]. MEDICATIONS Current Outpatient Medications Medication Instructions Alcohol Swabs (Alcohol Prep Pad) 70 % pads 1 Pad, Topical, 2 times daily, Use twice daily to check FSBS. Blood Glucose Monitoring Suppl (Architurn-PayAllies Glucometer) w/Device kit 1 kit, Does not [...] Morbid obesity with BMI of 45.0-49.9, adult ([facility]) PCOS (polycystic ovarian syndrome) Pre-diabetes Rectal bleeding Off and on since 2018 HISTORY PAST MEDICAL HISTORY SOCIAL HISTORY Past Medical History: Diagnosis Date Encounter for gynecological examination (general) (routine) without abnormal findings Fibrocystic breast 05/2022 Frequent headaches Labial cyst Menorrhagia Migraine (CMS/HCC) Chronic Morbid obesity with BMI of 45.0-49.9, adult ([facility]) PCOS (polycystic ovarian syndrome) Pre-diabetes Rectal bleeding [...] disease Maternal Grandfather Neri Stroke Maternal Grandfather [place] Cancer Maternal Grandfather [place] Drug abuse Maternal Grandfather [place] Drug abuse Father Tyrese Diabetes Paternal Grandfather [...] nursing note reviewed. Exam conducted with a airplane electrical repairer present. Vitals: Estimated body mass index is [...] reviewed, and patient is to proceed to [facility] OR. Follow Up: Patient is to follow up between 1-2 weeks post op to assess proper healing and recovery from procedure. Documented by Monique Cantrell LPN on behalf of: Sanjeev Lopez DO documented in this encounterMercy Hospital St. John'[id number] History of Present illness Narrative* Monique Cantrell [...] Morbid obesity with BMI of 45.0-49.9, adult ([facility]) PCOS (polycystic ovarian syndrome) Pre-diabetes Rectal bleeding Off and on since 2018 HISTORY PAST MEDICAL HISTORY SOCIAL HISTORY Past Medical History: Diagnosis Date Encounter for gynecological examination (general) (routine) without abnormal findings Fibrocystic breast 05/2022 Frequent headaches Labial cyst Menorrhagia Migraine (CMS/HCC) Chronic Morbid obesity with BMI of 45.0-49.9, adult ([facility]) PCOS (polycystic ovarian syndrome) Pre-diabetes Rectal bleeding Off and on since 2018 Weight gain Social History Tobacco Use Smoking status: Never Smokeless tobacco: Never Substance Use Topics Alcohol use: Not Currently Comment: Alcohol: 1 or 2 drinks on typical day/monthly or less. Caffeine: 1-2 cups/day tea Drug use: Never FAMILY HISTORY Family History Problem Relation Name Age of Onset Hypertension Maternal Grandfather [place] Heart disease Maternal Grandfather [place] Stroke Maternal Grandfather [place] Cancer Maternal Grandfather [place] Drug abuse Maternal Grandfather [place] Drug abuse Father Tyrese Diabetes Paternal Grandfather [...] nursing note reviewed. Exam conducted with a airplane electrical repairer present. Vitals: Estimated body mass index is [...] of: Sanjeev Lopez DO documented in this encounterMercy Hospital St. John'[id number] NotePatient Education Materials Follows: Hypertension, Adult High [...] of wine (148 mL (more content not included)...[facility]carawas [id number] History of Present illness Narrative* Rohit Metzger [...] take another few months to subside. Recommended prbo-oqq-jptqvvb pain relievers as needed. She is content [...] of the aforementioned history prepared by the hines practice provider, and I personally performed the [...] has any severe symptoms. documented in this encounterOhioHealth [facility]02-13-2024 History of Present illness Narrative* Rohit Metzger MD - 05/16/2023 1:45 PM EST [facility] Chief Complaint: [...] a snap. She initially followed up with [facility] Orth[facility] and was diagnosed with right ring [...] External notes reviewed: I reviewed notes from [facility] orthopaedics. Review of test/study reports: I reviewed an x-ray obtained of the right ring finger. There were no acute osseous abnormality suchas fracture dislocation. My personal interpretation of tests: I personally viewed and interpreted X-rays from [facility] as above. Xrays done in office today: None. Assessment: 1. Mallet deformity of right ring finger - [facility] - [place], [place] 2. Finger injury, right, initial encounter - [facility] [place], [place] Plan: I discussed treatment options with [...] progress with her flexion. documented in this encounterTriHealth Good Samaritan HospitalJetPay [facility] HospitalPtfkjc34-30-1018 Evaluation note* Encounter Date Diagnosis Assessment Notes Treatment Notes Treatment Clinical Notes May, Adult ADHD (attentio n deficit hyperactivity disorder) (ICD-10 - F90.9) [facility] Other 02-05-2024 History of Present illness Narrative* Jennie Colon APRN-DENTURE FINISHER - 05/08/2023 1:30 PM EST Images from the original note were not included. [facility] [address] [place] [address] * CHART NOTE ? 05/08/2023 Patient: Karuna Dumont 1980 [id number] Provider: Jennie Colon CNP CHIEF COMPLAINT Low [...] Current and prior treatments: -Physical therapy/HEP: denies -rn critical care: denies -Pain management: denies -Prior neurosurgical surgeries: [...] 12/08/2016 Performed by Dannie Patel MD at [facility] OR SECTION 2018 CHOLECYSTECTOMY BEHAVORIAL SCREENING Elective [...] Right achilles: 2+ Left achilles: 2+ Right transaction processor: 2+ Left transaction processor: 2+ Right Andujar: absent Left Andujar: absent [...] record of the patient encounter. Inadvertent computerized therapeutic activities services worker errors related to syntax, spelling, homophones, and/or inaudibility may be present. Thank you for your referral. CAIT Perla CNP 05/08/23 1440 documented in this encounterOhioHealth [facility]ide [facility]02-01-2024 History of Present illness Narrative* Everett Okeefe [...] Unable to get into hand specialist at [facility] until May 16. Continues to have soreness [...] (DIFLUCAN) 100 mg, Oral, Daily nystatin (Mycostatin) 669140 UNIT/GM powder APPLY TO AFFECTED AREA TOPICALLY [...] normal Pronation: normal Supination: normal Muscle Strength Dry Wall Finisher: 3/5 Other Erythema: absent Pulse: present Comments: [...] urgent evaluation. Everett CHAVIRA documented in this encounterMercy Hospital St. John'[id number] Evaluation note* Encounter Date Diagnosis Assessment Notes Treatment Notes Treatment Clinical Notes Apr, Adult ADHD (attentio n deficit hyperactivity disorder) (ICD-10 - F90.9) [facility] Other 01-12-2024 History of Present illness Narrative* [...] not had any complication. She is using ixmy-huo-hvfztsc pain patches. She denies any recent change [...] 12/08/2016 Performed by Dannie Patel MD at [facility] OR SECTION 2018 CHOLECYSTECTOMY Social History Tobacco [...] per her request. I have evaluated her [facility] reporting risk OARRS report overdose [...] follow-up. OAARS report reviewed via OARRS/MAPS in [facility]. Discussed with the patient/caregiversafe and effective use [...] you individually. If you have been recommended pxvb-vyy-daitbuz medications please use those medications as indicated [...] or approved for treating a specific patient. At[employer] and its affiliatesdisclaim any warranty or liability relating to this information or the use thereof. The use of thisinformation is governed by the Terms of Use, available at https://www.SeeClickFix.com/en/know/gluwxhbl-qjahjkpoawlzf-lzoqj Copyright Copyright 2022 [employer] and its affiliates and/or licensors. All rights reserved. OVER THE COUNTER PAIN CONTROL GUIDELINES To help control your pain a combination of azop-lmh-tiynbhf (OTC) pain medications can be used successfully [...] ulcers Do NOT take Tylenol along with [place] or Percocet (they already have Tylenol) Do [...] for further care immediately. CAIT Song 04/14/23 1207 documented in this encounterCopley HospitalClearbridge Accelerator [id number] Instructions* Patient Instructions* CAIT Song - 04/14/2023 [...] you individually. If you have been recommended jurs-tdf-pugnpvn medications please use those medications as indicated [...] or approved for treating a specific patient. NudgeRx. and its affiliatesdisclaim any warranty or liability relating to this information or the use thereof. The use of thisinformation is governed by the Terms of Use, available at https://www.SeeClickFix.Geminare/en/know/rahcjkat-zfkzgqfugplgv-wpthz Copyright Copyright 2022 [employer] and its affiliates and/or licensors. All rights reserved. OVER THE COUNTER PAIN CONTROL GUIDELINES To help control your pain a combination of bnzy-zyu-foycmof (OTC) pain medications can be used successfully [...] ulcers Do NOT take Tylenol along with [place] or Percocet (they already have Tylenol) Do NOT drink Alcohol while taking Tylenol If you have any questions please talk to your doctor or a pharmacist documented in this encounterCopley HospitalClearbridge Accelerator [id number] Evaluation note* Encounter Date Diagnosis Assessment Notes Treatment Notes Treatment Clinical Notes Apr, Adult ADHD (attentio n deficit hyperactivity disorder) (ICD-10 - F90.9) [facility] Other 01-09-2024 Evaluation note* Encounter Date Diagnosis Assessment Notes Treatment Notes Treatment Clinical Notes Apr, Adult ADHD (attentio n deficit hyperactivity disorder) (ICD-10 - F90.9) [facility] Other 01-08-2024 Evaluation note* Encounter Date Diagnosis Assessment Notes Treatment Notes Treatment Clinical Notes Apr, Adult ADHD (attentio n deficit hyperactivity disorder) (ICD-10 - F90.9) [facility] Other 10-30-2023 Evaluation note* Encounter Date Diagnosis Assessment Notes Treatment Notes Treatment Clinical Notes Jan, Adult ADHD (attentio n deficit hyperactivity disorder) (ICD-10 - F90.9) [facility] Other 10-02-2023 Evaluation note* Encounter Date Diagnosis [...] in 3 months or sooner if needed. [facility] Other 09-08-2023 Evaluation note* Encounter Date Diagnosis Assessment Notes Treatment Notes Treatment Clinical Notes Dec, Adult ADHD (attentio n deficit hyperactivity disorder) (ICD-10 - F90.9) [facility] Other 09-07-2023 Evaluation note* Encounter Date Diagnosis Assessment Notes Treatment Notes Treatment Clinical Notes Dec, Adult ADHD (attentio n deficit hyperactivity disorder) (ICD-10 - F90.9) [facility] Other 08-30-2023 Evaluation note* Encounter Date Diagnosis [...] Cutaneous candidiasis (ICD-10 - B37.2) Refilled diflucan. [facility] Other 07-11-2023 Hospital Discharge instructions* Discharge Instructions* RIZWAN Dietz CNP - 10/11/2022 8:08 PM EDT Please call and schedule a follow-up appointment with [facility]. Use an ice pack or [...] through Care Everywhere. * RICE: General Info (Italian) * Ankle Sprain (Italian) documented in [facility] encounterB[facility] Discharge instructions* Instructions* Radha Sanders MD - 08/19/2021 May use ice or heat, whichever feels better. May use [place] for pain. Prednisone as directed. Follow-up with [...] follow up appointment THANK YOU!!! From [facility] On behalf of the Emergency Department staff at [facility], I would like to thank you for giving us the opportunity to address your health care needs and concerns. We hope that during your visit, our service was delivered in a professional and caring manner. Please keep [facility] in mind as we walk with [...] how we did during your visit at [email or web address] and let us know about your experience * Attachments The following attachments cannot be sent through Care Everywhere. * Herniated Disc (Italian) [facility] Work Phone: evalurrchd note* Diagnosis Herniated lumbar intervertebral disc- Primary Displacement of lumbar intervertebral disc without myelopathy documented in this encounter [facility] [employer] Work Phone: evalyttwxb note* Diagnosis Gastroenteritis- Primary Other and unspecified noninfectious gastroenteritis and colitis documented in this encounter [facility] [employer] Work Phone: evaluation note* Diagnosis Sprain of right ankle, unspecified ligament, initial encounter- Primary documented in this encounter [facility] FlexyMindEvaluation noteNo InformationNort [employer] Other Evaluation note* Diagnosis 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 Pain in finger of right hand Pain in soft tissues of limb documented in this encounter [facility] HealthcareEvalutidalhealth [facility] noteNo assessment information availableWooster Community Hospital Work Phone: Evaluation note* Diagnosis Postop check Follow-up examination, following unspecified surgery Low ferritin level Other nonspecific findings on examination of blood documented in this encounter [facility] HealthcareEvaluation note* Diagnosis Breast pain Mastodynia documented in this encounter [facility] HealthcareEvaluation note* Diagnosis Encounter to discuss procedure Menorrhagia with regular cycle Decreased libido documented in this encounter [facility] HealthcareEvaluation note* Diagnosis Pre-op examination Menorrhagia with regular cycle Abnormal uterine bleeding (AUB) Pelvic pain Hormone disorder Unspecified endocrine disorder documented in this encounter [facility] HealthcareEvaluation note* Diagnosis Onset Date Resolution Status Admit Date Adult ADHD acute April 11 9:46am Wellness examination acute [place] 2024 9:46am [facility] Work Phone: Evaluation note* Diagnosis Back pain, unspecified back location, unspecified back pain laterality, unspecified chronicity- Primary documented in this encounter [facility]* Diagnosis Acute left-sided low back pain with left-sided sciatica- Primary documented in this encounter [facility] System[facility] note* Diagnosis Lumbar radiculopathy, chronic- Primary Urinary incontinence without sensory awareness Incontinence without sensory awareness Sensory deficit, left Spinal stenosis of lumbar region with neurogenic claudication documented in this encounter [facility] System[facility]* Diagnosis Herniated lumbar intervertebral disc- Primary Displacement of lumbar intervertebral disc without myelopathy documented in this encounter [facility] System[facility] note* Diagnosis 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 Finger injury, right, initial encounter documented in this encounter [facility] System[facility] note* Diagnosis Herniated lumbar intervertebral disc- Primary Displacement of lumbar intervertebral disc without myelopathy Lumbar radiculopathy, chronic documented in this encounter [facility] System[facility] note* Diagnosis 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 documented in this encounter [facility] System[facility] note* Diagnosis Lumbar radiculopathy, chronic- Primary Herniated lumbar intervertebral disc Displacement of lumbar intervertebral disc without myelopathy documented in this encounter [facility] System[facility] note* Diagnosis Hallux valgus of left [...] Hypertension, unspecified type documented in this encounter [facility]* Diagnosis S/P foot surgery- Primary Other postprocedural status Left foot pain Pain in soft tissues of limb Difficulty walking Difficulty in walking Instability of left ankle joint documented in this encounter [facility] HealthcareEvaluation note* Diagnosis S/P foot surgery- Primary Other postprocedural status Left foot pain Pain in soft tissues of limb documented in this encounter [facility] HealthcareEvaluation note* Diagnosis S/P foot surgery- Primary Other postprocedural status Left foot pain Pain in soft tissues of limb documented in this encounter [facility] HealthcareEvaluation note* Diagnosis S/P foot surgery- Primary [...] Surgical History Hospitalization History see surgical hx [facility] Other Hospital Discharge instructions* Attachments The following attachments cannot be sent through Care Everywhere. * Gastroenteritis (Italian) documented in this encounterBON [employer] Phone: InstructionsNot on filedocumented in this encounter [facility] SystemInstructionsNot on filedocumented in this encounter [facility] System[facility]* Attachments The following attachments cannot be sent through Care Everywhere. * Radiculopathy (Italian) * Spinal stenosis (Italian) documented in this encounterProMedica Health SystemInstructionsNot on file documented in this encounterProMedica Health SystemInstructionsNot on file documented in this encounterProMercer County Community Hospital SystemInstructionsNot on file documented in this encounterAvita [facility] SystemInstructions* Pre-Procedure Instructions - Bessie Boswell RN - 01/18/2024 3:45 PM EDT Your surgery/procedure is scheduled at [facility] on 01/25/24 at 10 am Arrival Time 8 am [facility] Address: [address] [place] [address], [facility], [address] [place] [address] in the Emergency Center Parking lot. Report to the director export in the Emergency/Surgery Registration lobby of the hospital. Notify your SURGEON if you develop any illness such as a cold, cough, fever, sore throat, vomiting or are hospitalized between now and your surgery. Please call Pre-Admission Clinic at [phone] if you have any questions prior to surgery. For questions the morning of surgery, call the Pre-op Department at [phone]. Medication Instructions (Do not stop your medications without consulting the prescribing physician). Take the following medications the morning of surgery with a sip of water: NONE Diabetic or Weight loss medications: HOLD: Joseunbrayden LAST DOSE:01/13 Take inhalers as prescribed the [...] to schedule therapy at a [facility] Rehab facility, please call [phone] ([phone]). Do not use lotions, creams, powders, perfume, make up, cologne or after-shaves day of surgery. Remove ALL jewelry including wedding rings, body piercings, hair extensions that contain metal, nail guatemalan, make-up, and contact lens. You may brush your teeth the morning of surgery, but do not swallow the water. Wear your dentures and partial plates to the hospital (no adhesive). Shower the night the before. If applicable, use the CHG (chlorhexidine gluconate) soap or wipes. Please be advised, [facility] has transitioned to a cashless [...] RIGHTS AND RESPONSIBILITIES As a patient at [facility], you have the right to: Receive medical care and be informed of who is taking care of you Be treated with dignity and respect Have a family member/insurance verification representative of choice and your physician notified of your admission Receive information and actively participate in decisions about your care and treatment Refuse care, treatment and services Decide who may provide your support and speak for you Access methodist and spiritual services Participate in ethical issues [...] of hospital charges and payment methods Patient/patient insurance verification representative responsibilities are to: Provide information about health status to facilitate care, treatment and services Follow the treatment, plan, keep appointments and speak up when you do not understand the plan Respect the rights of other patients and healthcare personnel Follow organizational rules and regulations that support quality care and a safe environment Fulfill financial obligations as promptly as possible [facility] SystemInstructionsNot on filedocumented in this encounter [facility] SystemInstructionsNot on filedocumented in this encounter [facility] SystemInstructionsNot on filedocumented in this encounter [facility] Notes* Pre-Procedure Instructions - Bessie Boswell RN - 01/18/2024 3:45 PM EDT Your surgery/procedure is scheduled at [facility] on 01/25/24 at 10 am Arrival Time 8 am [facility] Address: [address] [place] [address], [address] [place] [address] in the Emergency Center Parking lot. Report to the director export in the Emergency/Surgery Registration lobby of the hospital. Notify your SURGEON if you develop any illness such as a cold, cough, fever, sore throat, vomiting or are hospitalized between now and your surgery. Please call Pre-Admission Clinic at [phone] if you have any questions prior to surgery. For questions the morning of surgery, call the Pre-op Department at [phone]. Medication Instructions (Do not stop your medications [...] to schedule therapy at a [facility] Rehab facility, please call [phone] ([phone]). Do not use lotions, creams, powders, perfume, make up, cologne or after-shaves day of surgery. Remove ALL jewelry including wedding rings, body piercings, hair extensions that contain metal, nail guatemalan, make-up, and contact lens. You may brush your teeth the morning of surgery, but do not swallow the water. Wear your dentures and partial plates to the hospital (no adhesive). Shower the night the before. If applicable, use the CHG (chlorhexidine gluconate) soap or wipes. Please be advised, [facility] has transitioned to a cashless payment system. [...] RIGHTS AND RESPONSIBILITIES As a patient at [facility], you have the right to: Receive medical care and be informed of who is taking care of you Be treated with dignity and respect Have a family member/insurance verification representative of choice and your physician notified of your admission Receive information and actively participate in decisions about your care and treatment Refuse care, treatment and services Decide who may provide your support and speak for you Access methodist and spiritual services Participate in ethical issues [...] of hospital charges and payment methods Patient/patient insurance verification representative responsibilities are to: Provide information about health status to facilitate care, treatment and services Follow the treatment, plan, keep appointments and speak up when you do not understand the plan Respect the rights of other patients and healthcare personnel Follow organizational rules and regulations that support quality care and a safe environment Fulfill financial obligations as promptly as possible documented in this encounterUNC Health for referral (narrative)* Consultation (Routine) - Pending Review Specialty Diagnoses / Procedures Referred By Contact Referred To Contact Physical Medicine and Rehabilitation Diagnoses Herniated lumbar intervertebral disc Lumbar radiculopathy, chronic Jennie Colon APRN-CNP [address] [facility] [address] [place] [address] Vishal Martin DO [address] [facility] [address] [place] [address] Referral ID Status Reason Start Date Expiration Date Visits Requested Visits Authorized [id number] Pending Review Specialty Services Required 05/24/2023 05/23/2024 1 1 [facility] for referral (narrative)* Consultation (Routine) - Pending Review Specialty Diagnoses / Procedures Referred By Angela hart Referred To Contact Pain Medicine Diagnoses Lumbar radiculopathy, chronic Herniated lumbar intervertebral disc Jennie Colon APRN-CNP [address] [place] [address] Davis Silva MD [address] [place] [address] Referral ID Status Reason Start Date Expiration Date V isits Requested Visits Authorized [id number] Pending Review 06/12/2023 06/11/2024 1 1 [employer] Advance Directives Documents on File Type Date Recorded Patient Gift Officer Expl anation ACP-Advance Directive ACP-Power of Crew Boss Advance Directive Response Recorded Date/ Time Advance [...] MR lumbar spine without contrast Jennie Colon, CAIT [address] [address] [facility] [address] [place] [address] Phone: [phone] Referral ID Status Reason Start Date Expiration Date V isits Requested Visits Authorized [id number] Pending Review 05/08/2023 05/07/2024 1 1 Additional [...] in her L5, S1. Patient does see [facility] spinal surgeon but can't get in until late May Reason Comments Consult Low back pain Reason Comments Pain New patient chuck merritt [...] site of digit, initial encounter Nicole Lockwood, CHILD CARE LEADER-DENTURE FINISHER [address] [place] [address] Rohit Smith MD [address] [facility] [address] [place] [address] Referral ID Status Reason Start Date Expiration Date Visits Requested Visits Authorized [id number] Pending Review Specialty Services Required 3 03/12/2024 1 1 Reason Comments 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 Reason Comments [...] would not scan at bedside. Verified with [facility] prior to administration.) Scheduled Medication Order [...] July 29, 2024 End: July 29, 2024 Railroad Baggage Porter Relationship Specialty Start Date End Date Johnathon Winter MD PCP - General Family Medicine 03/08/16 [employer] Relationship Specialty Start Date End Date Johnathon Winter MD PCP - General Family Medicine 03/08/16 [employer] Relationship Specialty Start Date End Date Johnathon Winter MD PCP - General Family Medicine 03/08/16 [employer] Relationship Specialty Start Date End Date Johnathon Winter MD [address] [place] [phone] PCP - General Family Medicine 12/12/22 Team [...] December 06, 2023 End: December 06, 2023 [employer] Relationship Specialty Start Date End Date Johnathon Winter MD [address] [facility] [place] [phone] PCP - General Family Medicine 12/12/22 [employer] Relationship Specialty Start Date End Date Johnathon Winter MD [address] [place] [facility] [place] [address] PCP - General Family Medicine 12/12/22 [employer] Relationship Specialty Start Date End Date Johnathon Winter MD [address] [place] [facility] [place] [phone] PCP - General Family Medicine 12/12/22 [employer] Relationship Specialty Start Date End Date Johnathon Winter MD [address] [facility] [place] [phone] PCP - General Family Medicine 12/12/22 [employer] Relationship Specialty Start Date End Date Johnathon Winter MD [address] [facility] [place] [phone] PCP - General Family Medicine 12/12/22 [employer] Relationship Specialty Start Date End Date Johnathon Winter MD [address] [facility] [place] [phone] PCP - General Family Medicine 12/12/22 [employer] Relationship Specialty Start Date End Date Johnathon Winter MD [address] [place] [facility] [place] [phone] PCP - General Family Medicine 12/12/22 [employer] Relationship Specialty [place] [address] [place] [phone] PCP - General Family Medicine 12/12/22 [employer] Relationship Specialty Start Date End Date Johnathon Winter MD [address] [place] [phone] PCP - General 03/13/23 [employer] Relationship Specialty Start [place] [address] [place] [phone] PCP - General Family Medicine 12/12/22 Team [...] April 11, 2024 End: April 11, 2024 [employer] Relationship Specialty [place] [address] [place] [phone] PCP - General 03/13/23 [employer] Relationship Specialty [place] [address] [place] [address] [phone] PCP - General 03/13/23 Team Status: Active Member Role Status Dates Johnathon Winter MD Primary Care Provide r, Attending Provider Active Start: April 15, 2024 [employer] Relationship Specialty Start Date End Date Johnathon Winter MD [address] [place] [phone] PCP - General 03/13/23 [employer] Relationship Specialty Start Date End Date Johnathon Winter MD [address] [place] [phone] PCP - General 03/13/23 [employer] Relationship Specialty Start Date End Date Johnathon Winter MD [address] [place] [phone] PCP - General 03/13/23 [employer] Relationship Specialty Start Date End Date Johnathon Winter MD [address] [place] [phone] PCP - General 03/13/23 [employer] Relationship Specialty Start Date End Date Johnathon Winter MD [address] [place] [address] [phone] PCP - General 03/13/23 [employer] Relationship Specialty Start Date End Date Johnathon Winter MD [address] [place] [phone] PCP - General Family Medicine 12/12/22 [employer] Relationship Specialty Start Date End Date Johnathon Winter MD [address] [place] [phone] PCP - General Family Medicine 12/12/22 [employer] Relationship Specialty Start Date End Date Johnathon Winter MD [address] [place] [phone] PCP - General Family Medicine 12/12/22 [employer] Relationship Specialty Start Date End Date Johnathon Winter MD [address] [place] [phone] PCP - General Family Medicine 12/12/22 [employer] Relationship Specialty Start Date End Date Johnathon Winter MD [address] [place] [phone] PCP - General Family Medicine 12/12/22 [employer] Relationship Specialty Start Date End Date Johnathon Winter MD [address] [facility] [place] [address] PCP - General 03/13/23 [employer] Relationship Specialty Start Date End Date Johnathon Winter MD [address] [place] [phone] PCP - General Family Medicine 12/12/22 [employer] Relationship Specialty Start Date End Date Johnathon Winter MD [address] [place] [facility] [place] [phone] PCP - General Family Medicine 12/12/22 [employer] Relationship Specialty Start Date End Date Johnathon Winter MD [address] [place] [phone] PCP - General Family Medicine 12/12/22 [employer] Relationship Specialty Start Date End Date Johnathon Winter MD [address] [place] [facility] [place] [phone] PCP - General Family Medicine 12/12/22 Railroad Baggage Porter Relationship Specialty Start Date End Date Johnathon Winter MD [address] [place] [address] PCP - General 03/13/23 INFORMATION SOURCE (unrecogn ized section and content) DATE CREATED AUTHOR 07/17/2022 [facility] DATE CREATED AUTHOR AUTHOR'S ORGANIZ ATION 10/12/2022 [facility] DATE CREATED AUTHOR AUTHOR'S ORGANIZ ATION 06/12/2023 [facility] DATE CREATED AUTHOR AUTHOR'S ORGANIZ ATION 12/01/2023 [facility] DATE CREATED AUTHOR AUTHOR'S ORGANIZ ATION 12/14/2023 [facility] DATE CREATED AUTHOR AUTHOR'S ORGANIZ ATION 01/26/2024 [facility] DATE CREATED AUTHOR AUTHOR'S ORGANIZ ATION 07/09/2024 [facility] DATE CREATED AUTHOR AUTHOR'S ORGANIZ ATION 10/23/2024 [facility] DATE CREATED AUTHOR AUTHOR'S ORGANIZ ATION 10/30/2024 [facility] EPIC DATE CREATED AUTHOR AUTHOR'S ORGANIZ ATION 11/01/2024 [facility] Goals (unrecognized section and content) Goals [...] BE BASED ON THE PRIMARY CLINICAL RECORDS. [employer] provides no warranty or guarantee of the accuracy or completeness of information in this document.
[2025-01-06 07:40] VITALS: BP 93/71; PULSE 96; TEMP 36.6; O2SAT 99
[2025-01-06 08:07] VITALS: BP 101/60; PULSE 92; PULSE 94; O2SAT 100; O2SAT 99
[2025-01-06] MEDS: IOHEXOL 240 MG/ML - 10 ML VIAL INJ (08:09)
[2025-01-06] MEDS: LIDOCAINE HCL 2% 400 MG/20 ML MDV INJ (08:09)
[2025-01-06] MEDS: BUPIVACAINE HCL 0.25% PF 25 MG/10 ML VIAL INJ (08:09)
[2025-01-06] MEDS: METHYLPREDNISOLONE ACETATE 80 MG/ML VIAL INJ (08:09)
[2025-01-06] MEDS: 0.9 % SODIUM CHLORIDE 10 ML SYRINGE - SALINE FLUSH INJ (08:09)
[2025-01-06 08:10] VITALS: BP 101/60
--- NOTE | 2025-01-06 08:10 | P.ON_ITS ---
Date of procedure: 01/06/25 Pre-op diagnosis: Pain due to lumbar stenosis with neurogenic claudication Post-op diagnosis: same as pre-op Procedure: Procedure: Left L4-5, L5-S1 transforaminal epidural steroid injection Medications: Bupivacaine 0.25% 2cc, lidocaine 2% 1cc, depomedrol 80mg The patient was seen and examined in the preoperative holding area.? Informed consent was obtained and placed on the chart.? Patient was brought to the medical procedure unit and placed in the prone position where a timeout was completed verifying the correct patient, procedure site, position, and planned special equipment using sterile aseptic technique.? Under direct fluoroscopic visualization a 25-gauge Quincke tipped spinal needle was advanced to the designated neural foramen where contrast dye was injected to show adequate spread.? The needle was inserted at level left L4-5. There was no evidence of vascular or adverse uptake.? Epidural spread was appreciated.? The above- mentioned injectate was then placed in a 1.5 mL aliquot preceded by negative aspiration.? The needle was removed. The needle was inserted and the procedure repeated at level left L5-S1.? The surgery site was covered.? Patient was taken to the postprocedural recovery area and monitored for an appropriate length of time before found suitable for discharge in the accompaniment of a responsible adult. Anesthesia: Local Surgeon: Christiano Rivera Pathology: none sent Condition: stable Disposition: no change
== END 2025-01-06 08:16 | disposition home or self-care (01) ==
PROVIDERS: PCP Family Medicine; Visit Provider Anesthesiology
DX: M48.062 Spinal stenosis, lumbar region with neurogenic claudication (principal); M54.50 Low back pain, unspecified; E11.8 Type 2 diabetes mellitus with unspecified complications
CPT/HCPCS: 36415; 64483; 64484; 82948; J0665; J1010; Q9966

== ENCOUNTER 2025-01-16 09:45 | Outpatient (OUT) | payer BC, SELFPAY ==
--- OUTSIDE RECORDS SUMMARY | 2023-08-17 10:45 | XMS_ITS | Continuity of Care Document ---
Author [facility] [place] Treater [facility] Address [address] [place] [address] Phone Care Team Providers Care Fisheries Director Name Role Phone Kaleb Price DO Unavailable [...] - Active Procedures Procedure Date OFFICE/OUTPATIENT VISIT, [facility] Advance Directives Directive Yes / No Effective Date File Name No Information Encounters Encounter Description Practice Location Reason(s) For Visit Diagnoses Date Provider Providers Copied on Encounter OFFICE/OUTPA TIENT VISIT, EST Treater [facility], [address], [place], [place], [id number] , [place] tel:[phone] [facility] Surgery Panniculectom y cosult. (chief complaint) Panniculitis affecting regions of neck and back, site unspErythema intertrigo Albert Rosales. [address], [place], [place], [id number], . tel:[phone] Referring Provider: Kaleb Price DO, [address], [place], [address]. tel:[phone] Family History Family Member Type Diagnosis Age At Onset No Information Payers Payer name Insurance type Covered libertarian ID Authoriza adilson(s) Keyon WONG [id number] Social History Type Description Quantity Date Captured [...] Date Complaint History Of Prese nt Illness Comments: Cindy is a very pleasant 42-year-old [...] not on oral steroids or immune modulators. Panniculectomy cosult. Functional Status Date Functional Assessmen t No Information Instructions Date Instruction Additional Infor mation No Information Assessments Type Assessment Date assessment Panniculitis affecting back assessment Erythema intertrigo Patient Care Teams Name Effective Dates (start - stop) Status Members No Information
--- OUTSIDE RECORDS SUMMARY | 2024-05-14 07:00 | XMS_ITS ---
Author Organization The [facility] in [place] Address [address] [place] [address] Care Team Providers Care Pipeline Dispatch Operator Name Role Phone Radha Sanchez Primary Care Provider Kaleb Mcgee [phone] REASON FOR VISIT S/P RAMA Breast Biopsies Encounters Encounter Location Date Provider Diagnosis [address] [address] 05/14/2024 Kaleb Price Plan Of Treatment No Information Progress Notes * Karuna DUMONT DDOB:[birth year] (44 yo F)Acc No.[id number]:05/14/2024 UNLOCKED PROGRESS NOTE Patient: Karuna BAIG Provider: Chelo Price DO :1980 A ge:43 Y S ex:Female Date:05/14/2024 [address] [facility] Pcp:Radha Sanchez Subjective: * Chief Complaints: * 1 . S/P RAMA Breast Biopsies. * Medical History: Objective: * Vitals: Assessment: Plan: * Treatment: * * Electronic signature of Daksha Price DO on 01/16/2025 at 09:50 AM EDT Sign off status: Pending Visit Status: C ANC (Cancelled) * Provider: Chelo Price DO Date: 0 05/14/2024 Generated for Printi ng/Faxing/eTransmitting on: 1 09:50 AM EDT
--- OUTSIDE RECORDS SUMMARY | 2025-01-16 09:50 | XMS_ITS | Encounter Summary ---
Author Organization [facility] tem Address [id number] [address] [place] [address] Care Team Providers Care Family Caseworker Name Role Phone Radha Sanchez MD Primary Care Provider [phone] Reason for Visit * Reason Onset Date Comments GENETICS 05/01/2024 CLERICAL Encounter Details Date Type Department Care Team (Late st Contact Info) Description 05/01/2024 Telephone [facility] -[facility]ETICS [address] [facility] [address] [place] [phone] [facility] [address] [facility] [address] [place] [address] GENETICS (CLERICAL) Social History Tobacco Use Types Packs/Day Years Used Date Smoking Tobacco: Never Smokeless Tobacco: Never Alcohol Use Standard Drinks/Week Comments No 0 (1 standard drink = 0.6 oz pur e alcohol) [facility] Utilities Answer Date Recorded In the past 12 months has [place], gas, oil, or water [employer] threatened to shut off services in your [...] documented as of this encounter Care Teams Family Caseworker Relationship Specialty Start Date End Date Radha Sanchez MD [address] [place] [address] PCP - General 03/13/23 documented as of this encounter
--- OUTSIDE RECORDS SUMMARY | 2025-01-16 09:50 | XMS_ITS | Clinical Summary ---
Author Organization [facility] Address [address] [place] [address] Care Team Providers Care Junior Staff Accountant Name Role Phone Radha Sanchez MD Primary Care Provider [phone] Allergies Active Allergy Reactions Criticality Noted Date [...] (one) time per week. 06/14/19 25 Active ymiacxkztveh-dkb-g scott-FA-vit K 18 mg iron-400 mcg-25 mcg [...] COVID-19 Vaccine ( - 2023-2 5 season) 2024 Influenza Vaccine (#1) 2024 Cervical Cancer Screening [...] patient's age to complete this topic Insurance [facility] Member Subscriber Plan / Payer (Ef fective 2024-Present) Name:Karuna Dumont Relation to Subscriber:Spouse Name:ROBERT DUMONT Date of :1984 Address: [address] [place] [address] Payer ID:[id number] (NAIC) Type:Not on file Address: [facility] [address] [place] [id number] Care Teams Junior Staff Accountant Relationship Specialty Start Date End Date Radha Sanchez MD [address] [facility] [address] PCP - General 06/21/24
--- OUTSIDE RECORDS SUMMARY | 2025-01-16 09:50 | XMS_ITS | Encounter Summary ---
Author Organization [facility] Address [address] [place] [address] Care Team Providers Care Military Technology Specialist Name Role Phone Radha Sanchez MD Primary Care Provider [phone] Encounter Details Date Type Department Care Team (Late st Contact Info) Description 04/28/2023 Clinisync Result Encounter [facility] External Department Unsolicited Sanjeev Lopez, DO [address] [place] [address] [address] [place], [place] [phone] Social History Tobacco Use Types Packs/Day Years [...] Office Visit [facility] [address] [place] [phone] Georgi Carreon, DPMiles [address] [place], [place] [phone] 07/29/2025 3:00 PM EDT Office Visit [facility] [address] [place] [phone] Sanjeev Lopez DO [address] [facility] [place] [address] documented as of this encounter Procedures Procedure Name Priority Date/Time Associated Diagnosis Comments MM TOMOSYNTHESIS SCREENING BI 04/28/2023 12:44 PM EST documented in this encounter Results * MM TOMOSYNTHESIS SCREENING BI (04/28/2023 12:44 PM EST) Anatomical Region Laterality Modality Other 04/28/2023 12:4 4 PM EST Narrative 04/28/2023 12:44 PM EST The [address] [address] Mammography Report Signed Patient: CHAR DUMONT MR#: [id number] : 1980 Acct:[id number] Age/Sex: 42 / F ADM Date: 04/28/23 Loc: MAMMO Attending Dr: Sanjeev Lopez D.O. Ordering Physician: Sanjeev Lopez D.O. Results: Date of Service: 04/28/23 Follow Up: Procedure(s): MM tomosynthesis screening BI Accession Number(s): [id number] cc: Radha Sanchez M.D.; Sanjeev Lopez D.O. Patient Name: CHAR DUMONT MR#: [id number] : 1980 Exam Date: 04/28/2023 Ordering Doctor: [...] stomach cancer at age 67. LOCATION: [facility] BREAST COMPOSITION: Scattered areas fibroglandular density. [...] Signed By: 04/28/23 1244 DD/ 1244 TD/TT: Geological Technical Officer: Procedure Note Radiology, Radiologist, - 04/28/2023 [place] [address] Mammography Report Signed Patient: CHAR DUMONT DMR#: [id number] : 1980Acct:[id number] Age/Sex: 42 / FADM Date: 04/28/23 Loc: MAMMO Attending Dr: Sanjeev Lopez D.O. Ordering Physician: Sanjeev Lopez D.O.Results: Date of Service: 04/28/23Follow Up: Procedure(s): MM tomosynthesis screening BI Accession Number(s): [id number] cc: Radha Sanchez M.D.; Sanjeev Lopez D.O. Patient Name: CHAR DUMONT MR#: [id number] : 1980 Exam Date: 04/28/2023 Ordering Doctor: [...] stomach cancer at age 67. LOCATION: [facility] BREAST COMPOSITION: Scattered areas fibroglandular density. [...] M.D. Signed By:04/28/23 1244 DD/ 1244 TD/TT: Geological Technical Officer: us Sanjeev Jessica DO [facility] Final Result documented in this encounter Visit Diagnoses Not on filedocumented in this encounter Care Teams Military Technology Specialist Relationship Specialty Start Date End Date Radha Sanchez MD [address] [place] [phone] PCP - General Family Medicine 12/12/22 documented as of this encounter
--- OUTSIDE RECORDS SUMMARY | 2025-01-16 09:50 | XMS_ITS | Clinical Summary ---
Author Organization [facility] Address [address] [facility], [address] [place] [address] Care Team Providers Care Paramedical Aide Name Role Phone Radha Sanchez MD Primary Care Provider [phone] Allergies No known active allergies Medications tiZANidine (ZANAFLEX) 2 MG tablet Take 2 tablets by mouth nightly as needed (muscle spasms) 10 tablet 2 Active Additional Information Patient not taking.Reported on 10/11/2022 Active Problems Patient Care Coordination No te Formatting of this note migh t be different from the original. EDC in book = 03/08/17 [facility]es[facility] form = NA [...] 2012 Breast cancer screen 2022 Lipids 2022 Flu vaccine (#1) 11/01/2024 COVID-19 Vaccine ( - 2023-2 5 season) 2024 Diabetes screen Discontinued 08/04/2016, 06/15/2015 HIV screen [...] HIV Screen (08/04/2016 9:00 AM EDT) Pathologist [facility] HIV Ag/Ab NONREACTIVE NR 08/04/2016 10:56 PM EDT [facility] Comment: No laboratory evidence of HIV infection. If acute HIV infection is suspected, consider testing for HIV-1 RNA. This is an FDA approved immunoassay that detects HIV-1 and HIV-2 antibodies and HIV-1 p24 antigen to screen for infection with HIV-1 or HIV-2. Performed at [address] [id number] ([phone] 08/04/2016 9:00 AM EDT 08/04/2016 1:12 PM EDT Shu Alves HEALTH AND SAFETY TECH - CNM IMMUNOLOGY ORDERABLES Final Result [address] [address], [facility] [phone] [facility] * Hemoglobin A1C (08/04/2016 9:00 AM EDT) Hemoglobin A1C 5.6 4.8 - 5.9 % 08/04/2016 2:07 PM EDT [facility] Estimated Avg Glucose 114 mg/dL 08/04/2016 2:07 PM EDT [facility] Comment: The ADA and AACC recommend providing the estimated average glucose result to permit better patient understanding of their HBA1c result. Performed at [address] [place] [address] ([phone] 08/04/2016 9:00 AM EDT 08/04/2016 1:12 PM EDT Shu Thompson Long HEALTH AND SAFETY TECH - CNM CHEMISTRY ORDERABLES Final Result [facility] [address] [place] [address], [facility] [phone] [facility] from Last 3 Months or Most Recently Relevant to Health Maintenance Insurance [facility] Care Teams Paramedical Aide Relationship Specialty Start Date End Date Radha Sanchez MD PCP - General Family Medicine 03/08/16
--- OUTSIDE RECORDS SUMMARY | 2025-01-16 09:50 | XMS_ITS | Encounter Summary ---
Author Organization [facility] Address [address] [facility] [place] [address] Care Team Providers Care Soap Mixer Name Role Phone Radha Sanchez MD Primary Care Provider [phone] Encounter Details Date Type Department Care Team (Late st Contact Info) Description 04/15/2024 Abstract [facility] [address] [facility] [place] [address] Sanjeev Lopez DO [address] [facility] [place] [address] Social History Tobacco Use Types Packs/Day Years [...] Office Visit [facility] [address] [place] [phone] Georgi Carreon DPM [address] [place] [address] 07/29/2025 3:00 PM EDT Office Visit [facility] [address] [facility] [place] [address] Sanjeev Lopez DO [address] [facility] [place] [address] documented as of this encounter Visit Diagnoses Not on filedocumented in this encounter Care Teams Soap Mixer Relationship Specialty Start Date End Date Radha Sanchez MD [address] [facility] [place] [address] PCP - General Family Medicine 12/12/22 documented as of this encounter
--- OUTSIDE RECORDS SUMMARY | 2025-01-16 09:50 | XMS_ITS | Encounter Summary ---
Author Organization [facility] Address [address] [place] [address] Care Team Providers Care Certified Flight Instructor Name Role Phone Royal Cabrera MD Primary Care Provider [phone] Miller Mccormick MD Unavailable Unavailable Reyna Alves HAMMER ADJUSTER Unavailable Encounter Details Date Type Department Care Team (Late st Contact Info) Description 12/16/[address] [facility] Family Medicine [address] [place] [address] ProviderKarla MD [address] [place] [address] Social History Tobacco Use Types [...] PM EDT Narrative 01/21/2016 5:45 PM EDT [address] [address] ORDERING PROVIDER: Victor M Barry, PATIENT NAME: Karuna Dumont MR: [id number] : 1980 EXAMINATION: CT IVP DATE OF [...] Procedure Note Provider, MD Karla - 01/21/[address] [address] ORDERING PROVIDER: Victor M Barry PATIENT NAME: Karuna Dumont MR: [id number] : 1980 EXAMINATION: CT IVP DATE OF [...] on filedocumented in this encounter Care Teams Certified Flight Instructor Relationship Specialty Start Date End Date Royal Cabrera MD [address] [place] [address] PCP - General Family Medicine 12/12/13 04/02/18 Reyna Alves NP [address] [place] [address] PCP - PC Team Nurse Practitioner 08/31/17 04/02/18 Miller Mccormick MD [address] [place] [address] [facility] Obstetrics and Gynecology 12/19/13 documented as of this encounter
--- OUTSIDE RECORDS SUMMARY | 2025-01-16 09:50 | XMS_ITS | Encounter Summary ---
Author Organization [facility] Address [address] [facility] [place] [address] Care Team Providers Care Pewter Fabricator Name Role Phone Radha Sanchez MD Primary Care Provider [phone] Encounter Details Date Type Department Care Team (Late st Contact Info) Description 04/18/2024 Abstract [facility] [address] [place] [address] Natalia Choi LPN Social History Tobacco [...] Office Visit [facility] [address] [place] [address] Georgi Carreon DPMiles [address] [place] [phone] 07/29/2025 3:00 PM EDT Office Visit [facility] [address] [facility] [place] [address] Sanjeev Lopez DO [address] [facility] [place] [address] documented as of this encounter Visit Diagnoses Not on filedocumented in this encounter Care Teams Pewter Fabricator Relationship Specialty Start Date End Date Radha Sanchez MD [address] [facility] [place] [phone] PCP - General Family Medicine 12/12/22 documented as of this encounter
--- OUTSIDE RECORDS SUMMARY | 2025-01-16 09:50 | XMS_ITS | Encounter Summary ---
Author Organization [facility] Address [address] [facility] [place] [address] Care Team Providers Care Mountain Bike Guide Name Role Phone Radha Sanchez MD Primary Care Provider [phone] Encounter Details Date Type Department Care Team (Late st Contact Info) Description 04/16/2024 Abstract [facility] [address] [facility] [place] [address] Sanjeev Lopez DO [address] [facility] [place] [address] Social History Tobacco Use Types Packs/Day Years [...] Office Visit [facility] [address] [place] [phone] Georgi Carreon DPM [address] [place] [address] 07/29/2025 3:00 PM EDT Office Visit [facility] [address] [facility] [place] [address] Sanjeev Lopez DO [address] [facility] [place] [address] documented as of this encounter Visit Diagnoses Not on filedocumented in this encounter Care Teams Mountain Bike Guide Relationship Specialty Start Date End Date Radha Sanchez MD [address] [facility] [place] [address] PCP - General Family Medicine 12/12/22 documented as of this encounter
--- OUTSIDE RECORDS SUMMARY | 2025-01-16 09:50 | XMS_ITS | Encounter Summary ---
Author Organization [employer] Address [address] [place] [address] Care Team Providers Care Core Drier Name Role Phone Royal Cabrera MD Primary Care Provider [phone] Miller Mccormick MD Unavailable Unavailable Reyna Alves POLICE CAPTAIN Unavailable Encounter Details Date Type Department Care Team (Late st Contact Info) Description 12/16/2013 Orders Only [facility] Family Medicine [address] [place] [address] ProviderKarla MD [address] [place] [address] Social History Tobacco Use Types [...] PM EDT Narrative 01/21/2016 5:45 PM EDT [address] [address] ORDERING PROVIDER: Victor M Barry, PATIENT NAME: Karuna Dumont MR: [id number] : 1980 EXAMINATION: US PELVIC DATE OF [...] Procedure Note Provider, MD Karla - 01/21/[address] [address] ORDERING PROVIDER: Victor M Barry, PATIENT NAME: Karuna Dumont MR: [id number] : 1980 EXAMINATION: US PELVIC DATE OF [...] on filedocumented in this encounter Care Teams Core Drier Relationship Specialty Start Date End Date Royal Cabrera MD [address] [place] [address] PCP - General Family Medicine 12/12/13 04/02/18 Reyna Alves NP [address] [place] [address] PCP - PC Team Nurse Practitioner 08/31/17 04/02/18 Miller Mccormick MD [address] [place] [address] Grass Cutter Obstetrics and Gynecology 12/19/13 documented as of this encounter
--- OUTSIDE RECORDS SUMMARY | 2025-01-16 09:50 | XMS_ITS | Encounter Summary ---
Author Organization [facility] Address [address] [place] [address] Care Team Providers Care Tax Economist Name Role Phone Royal Cabrera MD Primary Care Provider Miller Mccormick MD Unavailable Unavailable Reyna Alves NP Unavailable Reason for Visit * Reason Comments Medication Refill Encounter Details Date Type Department Care Team (Late st Contact Info) Description 03/06/2014 Refill [facility] - Family Medicine [address] [address] Royal Cabrera MD [address] [place] [phone] Medication Refill Social History Tobacco Use Types [...] on filedocumented in this encounter Care Teams Tax Economist Relationship Specialty Start Date End Date Royal Cabrera MD [address] [place] [address] PCP - General Family Medicine 12/12/13 04/02/18 Reyna Alves NP [address] [place] [phone] PCP - PC Team Nurse Practitioner 08/31/17 04/02/18 Miller Mccormick MD [address] [place] [address] Wool Handler Obstetrics and Gynecology 12/19/13 documented as of this encounter
--- OUTSIDE RECORDS SUMMARY | 2025-01-16 09:50 | XMS_ITS | Clinical Summary ---
Author Organization [facility] Address [address] [place] [address] Care Team Providers Care Access Specialist Name Role Phone Unavailable Primary Care Provider [...] of 3 - 19+ 3-dose series) 2001 Qlgvbwq-Wudildkibr-Ztdyknajb Vaccines (1 - Tdap) 2001 Pap Smear 10/11/2016 10/11/2013, 07/29/2008 Cervical Cancer Screening 10/11/2018 Pap + HPV coTesting 10/11/2018 10/11/2013 Influenza Vaccine(s) (#1) 2024 Shingles Vaccine (Non-Medicare; Age 50+ or All [...] Procedure Name Priority Date/Time Associated Diagnosis Comments [facility] COTESTING: PAP + HPV POOL AND 16/18 GENOTYPING FOR WOMEN > OR = 30 YRS OLD Routine 10/11/2013 12:00 AM EDT Well woman exam with routine gynecological exam Cervical cancer screening from Last 3 Months or Most Recently Relevant to Health Maintenance Results * [facility] PAP + HPV High Risk Pool and 16/18 Genotyping ([id number]) (10/11/2013 12:00 AM EDT) [facility] Papsmear SEE BELOW [facility] Seiratherm Comment: [id number] Source: Cervical/Vaginal/Endocervical Testing/Results: Sent for HPV High Risk Pool and Brittani 16/18 Testing Clinical History: LMP: 09/05/13. IUD. Test/Results: Negative for intraepithelial Lesions or Malignancy Electronically Signed By: HARRY RAMIREZ (ASCP) Comments: This specimen was screened by an FDA approved automated imaging system along with an additional manual rescreening by a dowel maker and/or pathologist. Adequacy: Specimen is adequately prepared and documented. No endocervical cells present [facility] DNA (High/Low risk) Genotyping SEE BELOW [facility] Comment: [id number] Results: Specimen: Thin Prep Results: HPV 16: [...] used for detection of HPV with the Skylar Farideh 4800 HPV molecular assay. This test is performed at [facility], [address] [place] [address] [place] [address]. This test was developed and its performance characteristics determined by [facility] as a self-validated assay for SurePath and Thin Prep pap specimens. It is approved by the U.S. Food and Drug Administration for ThinPrep. This test has not been approved by the FDA or validated by [facility] for anal paps or urethra swabs. Electronically Signed By: FREEMAN Other 10/11/2013 10/11/2013 Mayur Mason NP PATHOLOGY/CYTOLOGY ORDERABLE S Final Result [facility] [address] [place] [phone] from Last 3 Months or Most Recently Relevant to Health Maintenance [place] [address] [place] [address] PPO
--- OUTSIDE RECORDS SUMMARY | 2025-01-16 09:51 | XMS_ITS | Encounter Summary ---
Author Organization [facility] Address [address] [facility] [place] [address] Care Team Providers Care Fountain Manager Name Role Phone Radha Sanchez MD Primary Care Provider [phone] Encounter Details Date Type Department Care Team (Late st Contact Info) Description 12/06/2023 Abstract [facility] [address] [place] [address] Tatum Atkinson LPN [address] [email or web address] [place] [phone] Social History Tobacco Use Types Packs/Day Years [...] Office Visit [facility] [address] [facility] [place] [phone] Georgi Carreon DPM [address] [place], [place] [phone] 07/29/2025 3:00 PM EDT Office Visit [facility] [address] [facility] [place] [address] Sanjeev Lopez DO [address] [facility] [place] [address] documented as of this encounter Visit Diagnoses Not on filedocumented in this encounter Care Teams Fountain Manager Relationship Specialty Start Date End Date Radha Sanchez MD [address] [facility] [place] [address] PCP - General Family Medicine 12/12/22 documented as of this encounter
--- OUTSIDE RECORDS SUMMARY | 2025-01-16 09:51 | XMS_ITS | Encounter Summary ---
Author Organization [employer] [facility] Address [id number] [address] [place] [address] Care Team Providers Care Network Systems Administrator Name Role Phone Radha Sanchez MD Primary Care Provider Encounter Details Date Type Department Care Team (Late st Contact Info) Description 09/20/2021 Telephone [facility] [address] [phone] [place] Social History Tobacco Use Types [...] documented as of this encounter Care Teams Network Systems Administrator Relationship Specialty Start Date End Date Radha Sanchez MD [address] [place] [address] PCP - General 03/13/23 documented as of this encounter
--- OUTSIDE RECORDS SUMMARY | 2025-01-16 09:51 | XMS_ITS | Encounter Summary ---
Author Organization [facility] Address [address] [facility] [place] [address] Care Team Providers Care Form Presser Name Role Phone Radha Sanchez MD Primary Care Provider Encounter Details Date Type Department Care Team (Late st Contact Info) Description 12/07/2023 Abstract [facility] [address] [place] [address] Sanjeev Lopez DO [address] [facility] [place] [address] Social History Tobacco Use Types Packs/Day Years [...] Office Visit [facility] [address] [place] [phone] Georgi Carreon DPM [address] [place], [place] [phone] 07/29/2025 3:00 PM EDT Office Visit [facility] [address] [place] [address] Sanjeev Lopez DO [address] [facility] [place] [address] documented as of this encounter Visit Diagnoses Not on filedocumented in this encounter Care Teams Form Presser Relationship Specialty Start Date End Date Radha Sanchez MD [address] [facility] [place] [address] PCP - General Family Medicine 12/12/22 documented as of this encounter
--- OUTSIDE RECORDS SUMMARY | 2025-01-16 09:51 | XMS_ITS | Encounter Summary ---
Author Organization [facility] Address [facility]-[id number] [address] [place] [address] Care Team Providers Care Master Certified Rv Technician Name Role Phone Radha Sanchez MD Primary Care Provider [phone] Reason for Referral * Diagnostic Imaging (Routine) - Closed Specialty Diagnoses / Procedures Referred By Contac t Referred To Contact Radiology Diagnoses Demyelinating disease of the spinal cord ([facility]) Procedures MR brain with and without contrast Royal Boateng MD Phone: tel: fax: [address] [address] Phone: tel: Referral ID Status Reason Start Date Expiration Date Visits Re quested Visits Authorized [id number] Closed 12/16/2021 01/30/2022 1 1 Encounter Details Date Type Department Care Team (Late st Contact Info) Description 12/09/2021 Orders Only [facility] [address] [facility] [address] [place] [address] Royal Boateng MD [address] [facility] [address] [place] [address] Demyelinating disease of the spinal cord ([facility]) Social History Tobacco Use Types Packs/Day [...] documented as of this encounter Care Teams Master Certified Rv Technician Relationship Specialty Start Date End Date Radha Sanchez MD [address] [place] [address] PCP - General 03/13/23 documented as of this encounter
--- OUTSIDE RECORDS SUMMARY | 2025-01-16 09:51 | XMS_ITS | Encounter Summary ---
Author Organization [facility] Address [address] [facility] [place] [address] Care Team Providers Care Drapery Hanger Name Role Phone Radha Sanchez MD Primary Care Provider [phone] Encounter Details Date Type Department Care Team (Late st Contact Info) Description 12/28/2023 Abstract [facility] [address] [facility] [place] [address] Sanjeev Lopez DO [address] [facility] [place] [address] Social History Tobacco Use Types Packs/Day Years [...] Office Visit [facility] [address] [place] [address] Georgi Carreon DPM [address] [place], [place] [phone] 07/29/2025 3:00 PM EDT Office Visit [facility] [address] [facility] [place] [address] Sanjeev Lopez DO [address] [facility] [place] [address] documented as of this encounter Visit Diagnoses Not on filedocumented in this encounter Care Teams Drapery Hanger Relationship Specialty Start Date End Date Radha Sanchez MD [address] [facility] [address] PCP - General Family Medicine 12/12/22 documented as of this encounter
--- OUTSIDE RECORDS SUMMARY | 2025-01-16 09:51 | XMS_ITS | Encounter Summary ---
Author Organization [facility] Address [address] [place] [address] Care Team Providers Care Internet Marketing Specialist Name Role Phone Radha Sanchez MD Primary Care Provider [phone] Encounter Details Date Type Department Care Team (Late st Contact Info) Description 11/15/2023 Clinisync Result Encounter [facility] External Department Unsolicited Sanjeev Lopez, DO [address] [place] [address] [address] [place], [place] [phone] Social History Tobacco Use Types Packs/Day Years [...] AM EDT Office Visit [facility] [address] [place] [address] Georgi Carreon, DPMiles [address] [place], [place] [address] 07/29/2025 3:00 PM EDT Office Visit [facility] [address] [place] [address] Sanjeev Lopez DO [address] [facility] [place] [address] documented as of this encounter Procedures Procedure Name Priority Date/Time Associated Diagnosis Comments MM TOMOSYNTHESIS DIAGNOSTIC LT 11/15/2023 11:25 AM EDT documented in this encounter Results * MM TOMOSYNTHESIS DIAGNOSTIC LT (11/15/2023 11:25 AM EDT) Anatomical Region Laterality Modality Other 11/15/2023 11:2 5 AM EDT Narrative 11/15/2023 11:26 AM EDT The [address] [address] Mammography Report Signed Patient: CHAR DUMONT MR#: [id number] : 1980 Acct:[id number] Age/Sex: 42 / F ADM Date: 11/15/23 Loc: MAMMO Attending Dr: Sanjeev Lopez D.O. Ordering Physician: Sanjeev Lopez D.O. Results: Date of Service: 11/15/23 Follow Up: Procedure(s): MM tomosynthesis diagnostic LT Accession Number(s): [id number] cc: Radha Sanchez M.D.; Sanjeev Lopez D.O. Patient Name: CHAR DUMONT MR#: [id number] : 1980 Exam Date: 11/15/2023 Ordering Doctor: [...] stomach cancer at age 67. LOCATION: The [facility] [place] BREAST COMPOSITION: There are scattered areas of [...] Signed By: 11/15/23 1126 DD/ 1125 TD/TT: Chin Strap Maker: Procedure Note Radiology, Radiologist, - 11/15/2023 [place] [address] Mammography Report Signed Patient: CHAR DUMONT DMR#: [id number] : 1980Acct:[id number] Age/Sex: 42 / FADM Date: 11/15/23 Loc: MAMMO Attending Dr: Sanjeev Lopez D.O. Ordering Physician: Sanjeev Lopez D.O.Results: Date of Service: 11/15/23Follow Up: Procedure(s): MM tomosynthesis diagnostic LT Accession Number(s): [id number] cc: Radha Sanchez M.D.; Sanjeev Lopez D.O. Patient Name: CHAR DUMONT MR#: [id number] : 1980 Exam Date: 11/15/2023 Ordering Doctor: [...] stomach cancer at age 67. LOCATION: The [facility] [place] BREAST COMPOSITION: There are scattered areas of [...] M.D. Signed By:11/15/23 1126 DD/ 1125 TD/TT: Chin Strap Maker: us Sanjeev Jessica DO [facility] Final Result documented in this encounter Visit Diagnoses Not on filedocumented in this encounter Care Teams Internet Marketing Specialist Relationship Specialty Start Date End Date Radha Sanchez MD [address] [place] [phone] PCP - General Family Medicine 12/12/22 documented as of this encounter
--- OUTSIDE RECORDS SUMMARY | 2025-01-16 09:51 | XMS_ITS | Encounter Summary ---
Author Organization [facility] Address [address] [place] [address] Care Team Providers Care Stretcher Drier Operator Name Role Phone Radha Sanchez MD Primary Care Provider [phone] Encounter Details Date Type Department Care Team (Late st Contact Info) Description 03/13/2024 Clinisync Result Encounter [facility] External Department Unsolicited Sanjeev Lopez, DO [address] [place] [address] [address] [place], [place] [phone] Social History Tobacco Use Types Packs/Day Years [...] Office Visit [facility] [address] [place] [address] Georgi Carreon, DPMiles [address] [place], [place] [address] 07/29/2025 3:00 PM EDT Office Visit [facility] [address] [facility] [place] [address] Sanjeev Lopez DO [address] [facility] [place] [address] documented as of this encounter Procedures Procedure Name Priority Date/Time Associated Diagnosis Comments US BREAST BI LIMITED 03/13/2024 2:58 PM EST documented in this encounter Results * US BREAST BI LIMITED (03/13/2024 2:58 PM EST) Anatomical Region Laterality Modality Other 03/13/2024 2:58 PM EST Narrative 03/13/2024 2:59 PM EST The [address] [address] Ultrasound Report Signed Patient: CHAR DUMONT MR#: [id number] : 1980 Acct:[id number] Age/Sex: 43 / F ADM Date: 03/13/24 Loc: MAMMO Attending Dr: Sanjeev Lopez D.O. Ordering Physician: Sanjeev Lopez D.O. Date of Service: 03/13/24 Procedure(s): US breast BI limited Accession Number(s): [id number] cc: Radha Sanchez M.D.; Sanjeev Lopez D.O. Patient Name: CHAR DUMONT MR#: [id number] : 1980 Exam Date: 03/13/2024 Ordering Doctor: [...] stomach cancer at age 67. LOCATION: The [facility] BREAST COMPOSITION: There are scattered areas [...] Signed By: 03/13/24 1459 DD/ 1458 TD/TT: Pai Gow Manager: Procedure Note Radiology, Radiologist, - 03/13/2024 [place] [address] Ultrasound Report Signed Patient: CHAR DUMONT DMR#: [id number] : 1980Acct:[id number] Age/Sex: 43 / FADM Date: 03/13/24 Loc: MAMMO Attending Dr: Sanjeev Lopez D.O. Ordering Physician: Sanjeev Lopez D.O. Date of Service: 03/13/24 Procedure(s): US breast BI limited Accession Number(s): [id number] cc: Radha Sanchez M.D.; Sanjeev Lopez D.O. Patient Name: CHAR DUMONT MR#: [id number] : 1980 Exam Date: 03/13/2024 Ordering Doctor: [...] stomach cancer at age 67. LOCATION: The [facility] BREAST COMPOSITION: There are scattered areas [...] M.D. Signed By:03/13/24 1459 DD/ 1458 TD/TT: Pai Gow Manager: us Sanjeev Lopez DO [facility] Final Result documented in this encounter Visit Diagnoses Not on filedocumented in this encounter Care Teams Stretcher Drier Operator Relationship Specialty [place] [address] [place] [phone] PCP - General Family Medicine 12/12/22 documented as of this encounter
--- OUTSIDE RECORDS SUMMARY | 2025-01-16 09:51 | XMS_ITS | Clinical Summary ---
Author Organization [facility] Address [address] [place] [address] Care Team Providers Care Lithographic General Worker Name Role Phone Radha Sanchez MD Primary Care Provider [phone] Allergies Active Allergy Reactions Criticality Noted Date Comments Topiramate Swelling Low 12/19/2013 Medications Alcohol Swabs (B-D SINGLE USE SWABS REGULAR) pads 024 Active Lancets (OneTouch Delica Plus [id number]) misc 024 Active MONOJECT 3CC SYRINGE 3 [...] to 10 days 30 tablet 025 Active ondansetron ODT (Zofran-ODT) 4 MG disintegrating tabletIndications :Nausea Dissolve one tablet on tongue EVERY 6 HOURS NEEDED FOR NAUSEA AND VOMITING 30 tablet 3 025 Active Mounjaro 12.5 MG/0.5ML solution auto-injectorIndi cations:Insulin resistance,Weight gain inject 0.5 milliliters UNDER THE SKIN ONCE WEEKLY 2 mL 3 025 Active Mounjaro 12.5 MG/0.5ML solution auto-injectorIndi cations:Insulin resistance,Weight gain inject 0.5 milliliters UNDER THE SKIN ONCE WEEKLY 2 mL 3 025 2024 Discontinued cephalexin (Keflex) 500 MG capsuleIndication s:Urinary tract infection without hematuria, site unspecified Take 1 capsule (500 mg) by mouth in the morning and 1 capsule (500 mg) in the evening and 1 capsule (500 mg) before bedtime. Do all this for 7 days. 21 capsule 025 2024 Active Problems Problem Noted Date Diagnosed Date Breast pain 10/06/2022 Chronic migraine without aur a, not intractable, without status migrainosus 10/06/2022 Frequent headaches 10/06/2022 Hallux valgus (acquired), left foot 10/06/2022 Insulin resistance 10/06/2022 Labial cyst 10/06/2022 Menorrhagia 10/06/2022 Morbid obesity 10/06/2022 Polycystic ovaries 10/06/2022 Weight gain 10/06/2022 Encounters Date Type Department Care Team Description 01/09/2025 Telephone [facility] [address] [facility] [place] [address] Natalia Choi LPN 12/27/2024 Refill [facility] [address] [place] [address] Sanjeev Lopez, DO Insulin resistance; Weight gain 12/24/2024 Telephone [facility] [address] [facility] [place] [address] Natalia Choi, ESPERANZA 11/16/2024 Refill [facility] [address] [facility] [place] [address] Sanjeev Lopez DO Nausea 10/29/2024 9:25 AM EDT Ancillary Procedure [facility] [address] [place] [address] 10/29/2024 9:00 AM EDT Office Visit [facility] [address] [place] [address] Georgi Carreon, NOE S/P foot surgery (Primary Dx); Left foot pain 10/29/2024 Bamboo flowsheet [facility] [address] [place] [address] Georgi Carreon DPM 10/29/2024 Travel 10/28/2024 Travel 10/25/2024 Refill [facility] [place] [address] [facility] [place] [address] Sanjeev Lopez DO Skin irritation from Last 3 Months Family History Medical [...] EDT Office Visit [facility] [address] [place] [address] Georgi Carreon, DPM [address] [place], [place] [phone] 07/29/2025 3:00 PM EDT Office Visit [facility] [place] [facility] [address] [facility] [place] [address] Sanjeev Lopez DO [address] [facility] [address] [place] [place], [place] [phone] Procedures Procedure Name Priority Date/Time Associated Diagnosis Comments XR FOOT 3+ VIEWS LEFT Routine 10/29/2024 9:24 AM EDT S/P foot surgery Left foot pain from Last 3 Months Results * XR foot 3+ views left (10/29/2024 9:24 AM EDT) Anatomical Region Laterality Modality Lower Extremities, Foot [...] but otherwise deformity correction is holding well. us Georgi Carreon DPM IMG XR PROCEDURES Final Res ult from Last 3 Months Insurance [employer] Care Teams Lithographic General Worker Relationship Specialty Start Date End Date Radha Sanchez MD [address] [place] [phone] PCP - General Family Medicine 12/12/22
--- OUTSIDE RECORDS SUMMARY | 2025-01-16 09:51 | XMS_ITS | Encounter Summary ---
Author Organization [facility] Address [address] [facility] [address] Care Team Providers Care Patient Monitor Name Role Phone Radha Sanchez MD Primary Care Provider [phone] Encounter Details Date Type Department Care Team (Late st Contact Info) Description 09/18/2023 Abstract [facility] [address] [facility] [place] [address] Sanjeev Lopez DO [address] [facility] [place] [address] Social History Tobacco Use Types Packs/Day Years [...] Office Visit [facility] [address] [place] [address] Georgi Carreon DPM [address] [place], [place] [phone] 07/29/2025 3:00 PM EDT Office Visit [facility] [address] [facility] [place] [address] Sanjeev Lopez DO [address] [facility] [place] [address] documented as of this encounter Visit Diagnoses Not on filedocumented in this encounter Care Teams Patient Monitor Relationship Specialty Start Date End Date Radha Sanchez MD [address] [facility] [place] [address] PCP - General Family Medicine 12/12/22 documented as of this encounter
--- OUTSIDE RECORDS SUMMARY | 2025-01-16 09:51 | XMS_ITS | Encounter Summary ---
Author Organization [facility] Address [facility] [place] [place]-[id number] [address] [place] [address] Care Team Providers Care Health Information Administrator Name Role Phone Radha Sanchez MD Primary Care Provider [phone] Encounter Details Date Type Department Care Team (Late st Contact Info) Description 01/03/2025 Orders Only [facility] [address] [facility] [address] [place] [address] Jo Meyer, LOFTSMAN/WOMAN-HEADER MACHINE OPERATOR [address] [place] [address] Social History Tobacco Use Types Packs/Day Years Used Date Smoking Tobacco: Never Smokeless Tobacco: Never Alcohol Use Standard Drinks/Week Comments No 0 (1 standard drink = 0.6 oz pur e alcohol) [facility] Utilities Answer Date Recorded In the past 12 months has be2, gas, oil, or water [employer] threatened to shut off services in your [...] documented as of this encounter Care Teams Health Information Administrator Relationship Specialty Start Date End Date Radha Sanchez MD [address] [place] [phone] PCP - General 03/13/23 documented as of this encounter
--- OUTSIDE RECORDS SUMMARY | 2025-01-16 09:51 | XMS_ITS | Encounter Summary ---
Author Organization [facility] Address [address] [place] [address] Care Team Providers Care Nailer Hand Name Role Phone Radha Sanchez MD Primary Care Provider [phone] Encounter Details Date Type Department Care Team (Late st Contact Info) Description 03/13/2024 Clinisync Result Encounter [facility] External Department Unsolicited Sanjeev Lopez, DO [address] [facility] [address] [place] [place], [place] [phone] Social History Tobacco Use Types Packs/Day Years [...] 01/29/2025 9:00 AM EDT Office Visit [facility] [address] [place] [address] Georgi Carreon, DPM [address] [place], [place] [address] 07/29/2025 3:00 PM EDT Office Visit [facility] [place] [address] [facility] [place] [address] Sanjeev Lopez, DO [address] [facility] [address] [place], [place] [address] documented as of this encounter Procedures Procedure Name Priority Date/Time Associated Diagnosis Comments MM TOMOSYNTHESIS DIAGNOSTIC BI 03/13/2024 2:58 PM EST documented in this encounter Results * MM TOMOSYNTHESIS DIAGNOSTIC BI (03/13/2024 2:58 PM EST) Anatomical Region Laterality Modality Other 03/13/2024 2:58 PM EST Narrative 03/13/2024 2:59 PM EST [address] [address] Mammography Report Signed Patient: CHAR DUMONT MR#: [id number] : 1980 Acct:[id number] Age/Sex: 43 / F ADM Date: 03/13/24 Loc: MAMMO Attending Dr: Sanjeev Lopez D.O. Ordering Physician: Sanjeev Lopez D.O. Results: Date of Service: 03/13/24 Follow Up: Procedure(s): MM tomosynthesis diagnostic BI Accession Number(s): [id number] cc: Radha Sanchez M.D.; Sanjeev Lopez D.O. Patient Name: CHAR DUMONT MR#: [id number] : 1980 Exam Date: 03/13/2024 Ordering Doctor: [...] stomach cancer at age 67. LOCATION: The [facility] BREAST COMPOSITION: There are scattered areas [...] Signed By: 03/13/24 1459 DD/ 1458 TD/TT: Property Management Assistant: Procedure Note Radiology, Radiologist, - 03/13/2024 [place] [address] Mammography Report Signed Patient: CHAR DUMONT [facility]#: [id number] : 1980Acct:[id number] Age/Sex: 43 / FADM Date: 03/13/24 Loc: MAMMO Attending Dr: Sanjeev Lopez D.O. Ordering Physician: Jessica,Sanjeev D.O.Results: Date of Service: 03/13/24Follow Up: Procedure(s): MM tomosynthesis diagnostic BI Accession Number(s): [id number] cc: Radha Sanchez M.D.; Sanjeev Lopez D.O. Patient Name: CHAR DUMONT MR#: [id number] : 1980 Exam Date: 03/13/2024 Ordering Doctor: [...] stomach cancer at age 67. LOCATION: The [facility] BREAST COMPOSITION: There are scattered areas [...] M.D. Signed By:03/13/24 1459 DD/ 1458 TD/TT: Property Management Assistant: us Sanjeev Jessica DO [facility] Final Result documented in this encounter Visit Diagnoses Not on filedocumented in this encounter Care Teams Nailer Hand Relationship Specialty Start Date End Date Radha Sanchez MD [address] [place] [address] PCP - General Family Medicine 12/12/22 documented as of this encounter
--- OUTSIDE RECORDS SUMMARY | 2025-01-16 09:51 | XMS_ITS | Encounter Summary ---
Author Organization [facility] Address [address] [place] [address] Care Team Providers Care Extension Work Instructor Name Role Phone Radha Sanchez MD Primary Care Provider [phone] Encounter Details Date Type Department Care Team (Late st Contact Info) Description 06/09/2023 Clinisync Result Encounter [facility] External Department Unsolicited Sanjeev Lopez, DO [address] [place] [address] [address] [place], [place] [phone] Social History Tobacco Use Types Packs/Day Years [...] Office Visit [facility] [address] [place] [phone] Georgi Carreon, DPMiles [address] [place], [place] [address] 07/29/2025 3:00 PM EDT Office Visit [facility] [address] [facility] [place] [address] Sanjeev Lopez DO [address] [facility] [place] [address] documented as of this encounter Procedures Procedure Name Priority Date/Time Associated Diagnosis Comments MM POST BIOPSY LT 06/09/2023 9:0 2 AM EST documented in this encounter Results * MM POST BIOPSY LT (06/09/2023 9:02 AM EST) Anatomical Region Laterality Modality Other 06/09/2023 9:02 AM EST Narrative 06/09/2023 9:03 AM EST [address] [address] Mammography Report Signed Patient: CHAR DUMONT MR#: [id number] : 1980 Acct:[id number] Age/Sex: 42 / F ADM Date: 05/23/23 Loc: MAMMO Attending Dr: Sanjeev Lopez D.O. Ordering Physician: Sanjeev Lopez D.O. Results: Date of Service: 05/23/23 Follow Up: Procedure(s): MM post biopsy LT Accession Number(s): [id number] cc: Radha Sanchez M.D.; Sanjeev Lopez D.O. Patient Name: CHAR DUMONT MR#: [id number] : 1980 Exam Date: 05/23/2023 Ordering Doctor: [...] M.D. Signed By: 06/09/23902 DD/ 1 TD/TT: Transitional Studies Instructor: Procedure Note Radiology, Radiologist, MD - 06/09/2023 [place] [address] Mammography Report Signed Patient: CHAR DUMONT DMR#: [id number] : 1980Acct:[id number] Age/Sex: 42 / FADM Date: 05/23/23 Loc: MAMMO Attending Dr: Sanjeev Lopez D.O. Ordering Physician: Sanjeev Lopez D.O.Results: Date of Service: 05/23/23Follow Up: Procedure(s): MM post biopsy LT Accession Number(s): [id number] cc: Radha Sanchez M.D.; Sanjeev Lopez D.O. Patient Name: CHAR DUMONT MR#: [id number] : 1980 Exam Date: 05/23/2023 Ordering Doctor: [...] Peterson M.D. Signed By:06/09/23902 DD/ 1 TD/TT: Transitional Studies Instructor: us Sanjeev Jessica DO [facility] Final Result documented in this encounter Visit Diagnoses Not on filedocumented in this encounter Care Teams Extension Work Instructor Relationship Specialty [place] [address] [place] [phone] PCP - General Family Medicine 12/12/22 documented as of this encounter
--- OUTSIDE RECORDS SUMMARY | 2025-01-16 09:51 | XMS_ITS | Encounter Summary ---
Author Organization [facility] Address [id number] [address] [place] [address] Care Team Providers Care Thresher Broomcorn Name Role Phone Radha Sanchez MD Primary Care Provider [phone] Reason for Visit * Reason Comments Med Refill Encounter Details Date Type Department Care Team (Late st Contact Info) Description 12/23/2021 Refill [facility] [address] [facility] [address] [place] [address] Royal Boateng MD [address] [facility] [address] [place] [address] Social History Tobacco Use Types [...] documented as of this encounter Care Teams Thresher Broomcorn Relationship Specialty Start Date End Date Radha Sanchez MD [address] [place] [phone] PCP - General 03/13/23 documented as of this encounter
--- OUTSIDE RECORDS SUMMARY | 2025-01-16 09:51 | XMS_ITS | Encounter Summary ---
Author Organization [facility] Address [address] [facility] [place] [address] Care Team Providers Care Cdc Associate Name Role Phone Radha Sanchez MD Primary Care Provider [phone] Encounter Details Date Type Department Care Team (Late st Contact Info) Description 11/27/2023 Abstract [facility] [address] [facility] [place] [address] Sanjeev Lopez DO [address] [facility] [place] [address] Social History Tobacco Use Types Packs/Day Years [...] Office Visit [facility] [address] [place] [phone] Georgi Carreon DPM [address] [place], [place] [phone] 07/29/2025 3:00 PM EDT Office Visit [facility] [address] [facility] [place] [address] Sanjeev Lopez DO [address] [facility] [place] [address] documented as of this encounter Visit Diagnoses Not on filedocumented in this encounter Care Teams Cdc Associate Relationship Specialty Start Date End Date Radha Sanchez MD [address] [facility] [place] [address] PCP - General Family Medicine 12/12/22 documented as of this encounter
--- OUTSIDE RECORDS SUMMARY | 2025-01-16 09:51 | XMS_ITS | Encounter Summary ---
Author Organization [facility] Address [address] [facility] [place] [address] Care Team Providers Care Trimmer Sawyer Name Role Phone Radha Sanchez MD Primary Care Provider [phone] Encounter Details Date Type Department Care Team (Late st Contact Info) Description 07/25/2023 Abstract [facility]CED[facility] [address] [facility] [address] [place] [address] Lydia Keenan LPN [address] [facility] [place] [address] [place] [address] Social History Tobacco Use Types Packs/Day Years [...] Office Visit [facility] [address] [place] [phone] Georgi Carreon DPM [address] [place], [place] [phone] 07/29/2025 3:00 PM EDT Office Visit [facility] [address] [facility] [place] [address] Sanjeev Lopez DO [address] [facility] [place] [address] documented as of this encounter Visit Diagnoses Not on filedocumented in this encounter Care Teams Trimmer Sawyer Relationship Specialty Start Date End Date Radha Sanchez MD [address] [facility] [place] [address] PCP - General Family Medicine 12/12/22 documented as of this encounter
--- OUTSIDE RECORDS SUMMARY | 2025-01-16 09:51 | XMS_ITS | Encounter Summary ---
Author Organization [facility] Address [address] [facility] [place] [address] Care Team Providers Care Electric Meter Installer Name Role Phone Radha Sanchez MD Primary Care Provider [phone] Encounter Details Date Type Department Care Team (Late st Contact Info) Description 10/05/2022 Abstract [facility] [address] [place] [address] Sanjeev Lopez DO [address] [facility] [place] [address] Social History Tobacco Use Types Packs/Day Years [...] Office Visit [facility] [address] [place] [phone] Georgi Carreon, NOE [address] [place] [address] 07/29/2025 3:00 PM EDT Office Visit [facility] MERCEDES [address] [place] [address] Sanjeev Lopez DO [address] [facility] [place] [address] documented as of this encounter Visit Diagnoses Not on filedocumented in this encounter Care Teams Electric Meter Installer Relationship Specialty Start Date End Date Radha Sanchez MD [address] [facility] [place] [address] PCP - General Family Medicine 12/12/22 documented as of this encounter
--- OUTSIDE RECORDS SUMMARY | 2025-01-16 09:51 | XMS_ITS | Encounter Summary ---
Author Organization [facility] Address [address] [place] [facility] [place] [address] Care Team Providers Care Interstate Bus Dispatcher Name Role Phone Radha Sanchez MD Primary Care Provider [phone] Encounter Details Date Type Department Care Team (Late st Contact Info) Description 04/10/2024 Abstract [facility]CED[facility] [address] [place] [address] Natalia Choi LPN Social History Tobacco [...] Office Visit [facility] [address] [place] [address] Georgi Carreon DPMiles [address] [place] [phone] 07/29/2025 3:00 PM EDT Office Visit [facility] [address] [facility] [place] [phone] Sanjeev Lopez DO [address] [facility] [place] [address] documented as of this encounter Visit Diagnoses Not on filedocumented in this encounter Care Teams Interstate Bus Dispatcher Relationship Specialty Start Date End Date Radha Sanchez MD [address] [facility] [place] [phone] PCP - General Family Medicine 12/12/22 documented as of this encounter
--- OUTSIDE RECORDS SUMMARY | 2025-01-16 09:51 | XMS_ITS | Encounter Summary ---
Author Organization [facility] Address [address] [facility] [place] [address] Care Team Providers Care Training And Development Manager Name Role Phone Radha Sanchez MD Primary Care Provider [phone] Encounter Details Date Type Department Care Team (Late st Contact Info) Description 03/22/2024 Abstract [facility] [address] [facility] [place] [address] Sanjeev Lopez DO [address] [facility] [place] [address] Social History Tobacco Use Types Packs/Day Years [...] Office Visit [facility] [address] [place] [phone] Georgi Carreon DPM [address] [place] [address] 07/29/2025 3:00 PM EDT Office Visit [facility] Bert MERCEDES [address] [facility] [place] [address] Sanjeev Lopez DO [address] [facility] [place] [address] documented as of this encounter Visit Diagnoses Not on filedocumented in this encounter Care Teams Training And Development Manager Relationship Specialty Start Date End Date Radha Sanchez MD [address] [facility] [place] [address] PCP - General Family Medicine 12/12/22 documented as of this encounter
--- OUTSIDE RECORDS SUMMARY | 2025-01-16 09:51 | XMS_ITS | Encounter Summary ---
Author Organization [employer] Address [id number] [address] [place] [address] Care Team Providers Care Zipper Joiner Name Role Phone Radha Sanchez MD Primary Care Provider [phone] Encounter Details Date Type Department Care Team (Late st Contact Info) Description 09/14/2021 [facility]phone [facility] [address] [facility] [address] [phone] Willa Stevens Social History Tobacco Use Types [...] - 09/14/2021 10:02 AM EDT Marcie from [facility] called regarding lumbar and cervical MRI's. They are scheduled for 09/17, but they are being denied and a peer to peer needs to be set up. Call: [phone] * Telephone Encounter - Willa Mahan - 09/14/2021 10:02 AM EDT Called insurance company to set up peer to peer. Peer to peer scheduled for 09/15 at 2:30pm. Primary phone is the office, secondary phone is [employer]. Scheduled blocked off. * Telephone Encounter - JOSSELYN Melendez - 09/14/2021 10:02 AM EDT Peer to peer completed. Auth # [id number] MRIs approved, [facility]ert notified. Message sent to patient via [employer] * Telephone Encounter - iWlla Mahan - 09/14/2021 10:02 AM EDT Noted. documented in this encounter Plan of Treatment Not on file documented as of this encounter Visit Diagnoses Not on filedocumented in this encounter Additional Health Concerns Assessment Noted Time A Body Mass Index follow-up plan has been documented for the patient 09/03/2021 4:19 PM EDT documented as of this encounter Care Teams Zipper Joiner Relationship Specialty Start Date End Date Radha Sanchez MD [address] [place] [address] PCP - General 03/13/23 documented as of this encounter
--- OUTSIDE RECORDS SUMMARY | 2025-01-16 09:51 | XMS_ITS | Encounter Summary ---
Author Organization [facility] Address [address] [facility] [place] [address] Care Team Providers Care Process Operator Name Role Phone Radha Sanchez MD Primary Care Provider [phone] Encounter Details Date Type Department Care Team (Late st Contact Info) Description 12/22/2023 Abstract [facility] [address] [facility] [place] [address] Sanjeev Lopez DO [address] [facility] [place] [address] Social History Tobacco Use Types Packs/Day Years [...] AM EDT Office Visit [facility] [address] [place] [phone] Georgi Carreon DPM [address] [place], [place] [phone] 07/29/2025 3:00 PM EDT Office Visit [facility] Bert MERCEDES [address] [facility] [place] [address] Sanjeev Lopez DO [address] [facility] [place] [address] documented as of this encounter Visit Diagnoses Not on filedocumented in this encounter Care Teams Process Operator Relationship Specialty Start Date End Date Radha aSnchez MD [address] [facility] [place] [address] PCP - General Family Medicine 12/12/22 documented as of this encounter
--- OUTSIDE RECORDS SUMMARY | 2025-01-16 09:51 | XMS_ITS | Encounter Summary ---
Author Organization [facility] Address [address] [facility] [place] [address] Care Team Providers Care Pipe Bender Name Role Phone Radha Sanchez MD Primary Care Provider [phone] Encounter Details Date Type Department Care Team (Late st Contact Info) Description 11/22/2023 Orders Only [facility] [address] [place] [address] Lydia Keenan LPN [address] [place] [phone] Social History Tobacco Use Types Packs/Day Years [...] Office Visit [facility] [address] [place] [phone] Georgi Carreon DPM [address] [place], [place] [phone] 07/29/2025 3:00 PM EDT Office Visit [facility]ma OBGYN [address] [facility] [place] [address] Sanjeev Lopez DO [address] [facility] [place] [address] documented as of this encounter Procedures Procedure Name Priority Date/Time Associated Diagnosis Comments PAP SMEAR Routine 07/19/2023 12:00 AM EDT documented in this encounter Results * Pap Smear (07/19/2023 12:00 AM EDT) Swab Cervical swab / Unknown Jessica Nurse [facility] LAB CYTOLOGY ORDERABLES Final Result EXTERNAL LAB documented in this encounter Visit Diagnoses Not on filedocumented in this encounter Care Teams Pipe Bender Relationship Specialty Start Date End Date Radha Sanchez MD [address] [facility] [place] [address] PCP - General Family Medicine 12/12/22 documented as of this encounter
--- OUTSIDE RECORDS SUMMARY | 2025-01-16 09:51 | XMS_ITS | Encounter Summary ---
Author Organization [facility] Address [address] [place] [address] Care Team Providers Care Lead Game Designer Name Role Phone Radha Sanchez MD Primary Care Provider [phone] Encounter Details Date Type Department Care Team (Late st Contact Info) Description 06/09/2023 Clinisync Result Encounter NOM[facility] External Department Unsolicited Sanjeev Lopez, DO [address] [place] [address] [address] [place], [place] [address] Social History Tobacco Use Types Packs/Day Years [...] Office Visit [facility] [address] [place] [phone] Georgi Carreon, DPMiles [address] [place], [place] [address] 07/29/2025 3:00 PM EDT Office Visit [facility] [address] [facility] [place] [address] Sanjeev Lopez DO [address] [facility] [address] documented as of this encounter Procedures Procedure Name Priority Date/Time Associated Diagnosis Comments MM STEREOTACTIC LOC LT 06/09/2023 9:01 AM EST documented in this encounter Results * MM STEREOTACTIC LOC LT (06/09/2023 9:01 AM EST) Anatomical Region Laterality Modality Radiographic Shereen ging 06/09/2023 9:01 AM EST Narrative 06/09/2023 9:02 AM EST [address] [address] Mammography Report Signed Patient: CHAR DUMONT MR#: [id number] : 1980 Acct:[id number] Age/Sex: 42 / F ADM Date: 05/23/23 Loc: MAMMO Attending Dr: Sanjeev Lopez D.O. Ordering Physician: Sanjeev Lopez D.O. Results: Date of Service: 05/23/23 Follow Up: Procedure(s): MM stereotactic loc LT Accession Number(s): [id number] cc: Radha Sanchez M.D.; Sanjeev Lopez D.O. Patient Name: CHAR DUMONT MR#: [id number] : 1980 Exam Date: 05/23/2023 Ordering Doctor: [...] M.D. Signed By: 06/09/23901 DD/ 0 TD/TT: Melt House Centrifugal Operator: Procedure Note Radiology, Radiologist, MD - 06/09/2023 [place] [address] Mammography Report Signed Patient: CHAR DUMONT DMR#: [id number] : 1980Acct:[id number] Age/Sex: 42 / FADM Date: 05/23/23 Loc: MAMMO Attending Dr: Sanjeev Lopez D.O. Ordering Physician: Sanjeev Lopez D.O.Results: Date of Service: 05/23/23Follow Up: Procedure(s): MM stereotactic loc LT Accession Number(s): [id number] cc: Radha Sanchez M.D.; Sanjeev Lopez D.O. Patient Name: CHAR DUMONT MR#: [id number] : 1980 Exam Date: 05/23/2023 Ordering Doctor: [...] focal dense stromal fibrosis. Dictated by: Tee ePterson M.D. on 06/09/2023 at 09:00 Approved by: Tee Peterson M.D. on 06/09/2023 at 09:01 Dictated By: Tee Peterson M.D. Signed By:06/09/23901 DD/ 0 TD/TT: Melt House Centrifugal Operator: Sanjeev Lopez DO IM XR PROCEDURES Final Result documented in this encounter Visit Diagnoses Not on filedocumented in this encounter Care Teams Lead Game Designer Relationship Specialty Start Date End Date Radha Sanchez MD [address] [place] [phone] PCP - General Family Medicine 12/12/22 documented as of this encounter
--- OUTSIDE RECORDS SUMMARY | 2025-01-16 09:51 | XMS_ITS | Encounter Summary ---
Author Organization [facility] Address [address] [place] [address] Care Team Providers Care Radio Frequency Engineer Name Role Phone Radha Sanchez MD Primary Care Provider [phone] Encounter Details Date Type Department Care Team (Late st Contact Info) Description 10/25/2023 Clinisync Result Encounter NOMS External Department Unsolicited Nick Lopez, DO [address] [place] [address] [place], [place] [address] Social History Tobacco Use Types Packs/Day Years [...] Office Visit [facility] [address] [place] [phone] Georgi Carreon, DPMiles [address] [place], [place] [address] 07/29/2025 3:00 PM EDT Office Visit [facility] [address] [facility] [place] [address] Nick Lopez DO [address] [facility] [place] [address] documented as of this encounter Procedures Procedure [...] EDT Narrative 10/25/2023 11:13 AM EDT The [address] [address] Ultrasound Report Signed Patient: CHAR DUMONT MR#: [id number] : 1980 Acct:[id number] Age/Sex: 42 / F ADM Date: 10/25/23 Loc: NOMS Attending Dr: Nick Lopez D.O. Ordering Physician: Nick Lopez D.O. Date of Service: 10/25/23 Procedure(s): US pelvis w/ transvaginal Accession Number(s): [id number] cc: Radha Sanchez M.D.; Nick Lopez D.O. The [place] [id number] Patient Name: CHAR DUMONT MRN: [id number] date: 1980 Sex: F Assigned Patient Location: [facility] Current Patient Location: LAB Accession/Order Number: [id number] Exam Date: 10/25/2023 09:07 Report Date: 10/25/2023 [...] Signed By: 10/25/23 1113 DD/ 1110 TD/TT: Aluminum Molding Machine Operator: Procedure Note Radiology, Radiologist, MD - 10/25/2023 [place] [address] Ultrasound Report Signed Patient: CHAR DUMONT DMR#: [id number] : 1980Acct:[id number] Age/Sex: 42 / FADM Date: 10/25/23 Loc: NOMS Attending Dr: Nick Lopez D.O. Ordering Physician: Nick Lopez D.O. Date of Service: 10/25/23 Procedure(s): US pelvis w/ transvaginal Accession Number(s): [id number] cc: Radha Sanchez M.D.; Nick Lopez D.O. [place] [id number] Patient Name: CHAR DUMONT MRN: [id number] date: 1980 Sex: F Assigned Patient [facility]: [facility] Current Patient Location: LAB Accession/Order Number: [id number] Exam Date: 10/25/2023 09:07 Report Date: 10/25/2023 [...] M.D. Signed By:10/25/23 1113 DD/ 1110 TD/TT: Aluminum Molding Machine Operator: us Nick Jessica DO [facility] Final Result * ALL THYROXINE (T4) FREE (10/25/2023 9:55 AM EDT) FREE T4 1.24 0.76 - 1.46 ng/dL TB 10/25/2023 9:55 AM EDT 10/25/2023 9:56 AM EDT Narrative [facility] - 10/25/2023 11:52 AM EDT Nick Jessica DO [facility] Final Result [facility] * [facility] APTT (10/25/2023 9:55 AM EDT) PARTIAL THROMBOPLASTIN TIME 29.5 22.3 - 36.2 sec TB 10/25/2023 9:55 AM EDT 10/25/2023 9:56 AM EDT Narrative [facility] - 10/25/2023 11:49 AM EDT [facility] Final Result Performing Organization Address [facility] Co de Phone Number [facility] * [facility] PROTHROMBIN TIME INR W/O COUM (10/25/2023 9:55 AM EDT) PROTHROMBIN TIME 10.5 9.0 - 11.6 sec TB [facility] INR 0.99 [facility] Comment: DESIRED INR: 2.0-3.0 CONDITIONS NOT LISTED BELOW 2.5-3.5 FOR PROSTHETIC HEART VALVE REPLACEMENT 2.5-3.5 RECURRENT THROMBOSIS 10/25/2023 9:55 AM EDT 10/25/2023 9:56 AM EDT Narrative [facility] - 10/25/2023 11:49 AM EDT Nick Jessica DO [facility] Final Result [facility] * [facility] PREG QUANT HCG (10/25/2023 9:55 AM EDT) Pathologist [facility] HCG QUANTITATIVE <1 mIU/mL [facility] Comment: 5-50 0.2-1 WEEK 50-500 1-2 WEEKS 100-5,000 2-3 WEEKS 500-10,000 3-4 WEEKS 1,000-50,000 4-5 WEEKS 10,000-100,000 5-6 WEEKS 15,000-200,000 6-8 WEEKS 10,000-100,000 2-3 MONTHS 10/25/2023 9:55 AM EDT 10/25/2023 9:56 AM EDT Narrative [facility] - 10/25/2023 11:26 AM EDT Nick Jessica DO [facility] Final Result * ALL THYROID STIM HORMONE (10/25/2023 9:55 AM EDT) Pathologist [facility] THYROID STIMULATING HORMONE 1.497 0.358 - 3.740 uIU/mL [facility] 10/25/2023 9:55 AM EDT 10/25/2023 9:56 AM EDT Narrative [facility] - 10/25/2023 11:26 AM EDT Nick Jessica DO [facility] Final Result * ALL CBC WITH AUTO DIFF (10/25/2023 9:55 AM EDT) Pathologist [facility] WBC 5.5 4.0 - 11.0 10 [...] us Nick Jessica DO [facility] documented in this encounter Visit Diagnoses Not on filedocumented in this encounter Care Teams Radio Frequency Engineer Relationship Specialty Start Date End Date Radha Sanchez MD [facility] [place] [address] PCP - General Family Medicine 12/12/22 documented as of this encounter
--- OUTSIDE RECORDS SUMMARY | 2025-01-16 09:51 | XMS_ITS | Encounter Summary ---
Author Organization [facility] Address [address] [place] [address] Care Team Providers Care Heat Sealing Machine Operator Name Role Phone Radha Sanchez MD Primary Care Provider [phone] Encounter Details Date Type Department Care Team (Late st Contact Info) Description 05/23/2023 Clinisync Result Encounter NOM[facility] External Department Unsolicited Sanjeev Lopez, DO [address] [place] [address] [address] [place], [place] [phone] Social History Tobacco Use Types Packs/Day Years [...] Office Visit [facility] [address] [place] [phone] Georgi Carreon, DPMiles [address] [place], [place] [phone] 07/29/2025 3:00 PM EDT Office Visit [facility] Bert [facility]BG[facility] [address] [facility] [place] [address] Sanjeev Lopez DO [address] [facility] [address] documented as of this encounter Procedures Procedure Name Priority Date/Time Associated Diagnosis Comments MM STEREOTACTIC LOC LT 05/23/2023 2:37 PM EST documented in this encounter Results * MM STEREOTACTIC LOC LT (05/23/2023 2:37 PM EST) Anatomical Region Laterality Modality Radiographic Shereen ging 05/23/2023 2:37 PM EST Narrative 05/23/2023 2:38 PM EST [address] [address] Mammography Report Signed Patient: CHAR DUMONT MR#: [id number] : 1980 Acct:[id number] Age/Sex: 42 / F ADM Date: 05/23/23 Loc: MAMMO Attending Dr: Sanjeev Lopez D.O. Ordering Physician: Sanjeev Lopez D.O. Results: Date of Service: 05/23/23 Follow Up: Procedure(s): MM stereotactic loc LT Accession Number(s): [id number] cc: Radha Sanchez M.D.; Sanjeev Lopez D.O. Patient Name: CHAR DUMONT MR#: [id number] : 1980 Exam Date: 05/23/2023 Ordering Doctor: [...] Signed By: 05/23/23 1438 DD/ 1437 TD/TT: Crane Ladle Person: Procedure Note Radiology, Radiologist, MD - 05/24/2023 [place] [address] Mammography Report Signed Patient: CHAR DUMONT DMR#: [id number] : 1980Acct:[id number] Age/Sex: 42 / FADM Date: 05/23/23 Loc: MAMMO Attending Dr: Sanjeev Lopez D.O. Ordering Physician: Sanjeev Lopez D.O.Results: Date of Service: 05/23/23Follow Up: Procedure(s): MM stereotactic loc LT Accession Number(s): [id number] cc: Radha Sanchez M.D.; Sanjeev Lopez D.O. Patient Name: CHAR DUMONT MR#: [id number] : 1980 Exam Date: 05/23/2023 Ordering Doctor: [...] M.D. Signed By:05/23/23 1438 DD/ 1437 TD/TT: Crane Ladle Person: us Sanjeev Jessica DO IMG XR PROCEDURES Final Result documented in this encounter Visit Diagnoses Not on filedocumented in this encounter Care Teams Heat Sealing Machine Operator Relationship Specialty Start Date End Date Radha Sanchez MD [address] [place] [phone] PCP - General Family Medicine 12/12/22 documented as of this encounter
--- OUTSIDE RECORDS SUMMARY | 2025-01-16 09:51 | XMS_ITS | Encounter Summary ---
Author Organization [facility] Address [address] [facility] [place] [address] Care Team Providers Care Plexiglas Former Name Role Phone Radha Sanchez MD Primary Care Provider [phone] Encounter Details Date Type Department Care Team (Late st Contact Info) Description 01/09/2025 Telephone [facility] [address] [place] [address] [place] [address] Natalia Choi LPN Social History Tobacco [...] encounter Miscellaneous Notes * Telephone Encounter - Natalia Choi LPN - 01/09/2025 1:04 PM EDT 01/08/25 @0932 patient called and requested that all labs be drawn that she had drawn at the end ofyear last year as she has met her out of pocket cost and would like to have all [facility] checked. 01/09/25 @1:10pm Called patient and discussed labs with patient. Patient desires to have all labs ordered to check levels. Lab slip will be sent to [facility] for patient to have drawn next week. Patient will reach out to office with any further questions/concerns. Natalia Celeste LPN documented in this encounter Plan of Treatment Upcoming Encounters Date Type Department Care Team (Late st Contact Info) Description 01/29/2025 9:00 AM EDT Office Visit [facility] [address] [place] [address] Georgi Carreon, DPM [address] [place], [place] [phone] 07/29/2025 3:00 PM EDT Office Visit [facility] [address] [place] [phone] Sanjeev Lopez DO [address] [facility] [place] [address] Scheduled Orders Name Type Priority Associated Diagnoses Orde r Schedule Estradiol Lab Routine Hormone disorder Insulin resistance Weight gain Expected: 01/09/2025, Expires: 01/09/2026 Estrone Lab Routine Hormone disorder Insulin resistance Weight gain Expected: 01/09/2025, Expires: 01/09/2026 Cortisol, free Lab Routine Hormone disorder Insulin resistance Weight gain Expected: 01/09/2025, Expires: 01/09/2026 DHEA-sulfate Lab Routine Hormone disorder Insulin resistance Weight gain Expected: 01/09/2025, Expires: 01/09/2026 Sex hormone binding globulin Lab Routine Hormone disorder Insulin resistance Weight gain Expected: 01/09/2025, Expires: 01/09/2026 Insulin, total Lab Routine Hormone disorder Insulin resistance Weight gain Expected: 01/09/2025, Expires: 01/09/2026 Serotonin serum Lab Routine Hormone disorder Insulin resistance Weight gain Expected: 01/09/2025, Expires: 01/09/2026 TSH Lab Routine Hormone disorder Insulin resistance Weight gain Expected: 01/09/2025, Expires: 01/09/2026 T4, free Lab Routine Hormone disorder Insulin resistance Weight gain Expected: 01/09/2025, Expires: 01/09/2026 T3, reverse Lab Routine Hormone disorder Insulin resistance Weight gain Expected: 01/09/2025, Expires: 01/09/2026 Progesterone Lab Routine Hormone disorder Insulin resistance Weight gain Expected: 01/09/2025, Expires: 01/09/2026 Ferritin Lab Routine Hormone disorder Insulin resistance Weight gain Expected: 01/09/2025, Expires: 01/09/2026 T3, free Lab Routine Hormone disorder Insulin resistance Weight gain Expected: 01/09/2025, Expires: 01/09/2026 Thyroglobulin Lab Routine Hormone disorder Insulin resistance Weight gain Expected: 01/09/2025, Expires: 01/09/2026 Thyroglobulin Antibody Lab Routine Hormone disorder Insulin resistance Weight gain Expected: 01/09/2025, Expires: 01/09/2026 Thyroid peroxidase antibody Lab Routine Hormone disorder Insulin resistance Weight gain Expected: 01/09/2025, Expires: 01/09/2026 T4 Lab Routine Hormone disorder Insulin resistance Weight gain Expected: 01/09/2025, Expires: 01/09/2026 TESTOSTERONE, FREE Lab Routine Hormone disorder Insulin resistance Weight gain Expected: 01/09/2025, Expires: 01/09/2026 Testosterone, free, total Lab Routine Hormone disorder Insulin resistance Weight gain Expected: 01/09/2025, Expires: 01/09/2026 Hemoglobin A1c Lab Routine Hormone disorder Insulin resistance Weight gain Expected: 01/09/2025, Expires: 01/09/2026 Glucose, random Lab Routine Hormone disorder Insulin resistance Weight gain Expected: 01/09/2025, Expires: 01/09/2026 C-peptide Lab Routine Hormone disorder Insulin resistance Weight gain Expected: 01/09/2025, Expires: 01/09/2026 Vitamin D 1,25 dihydroxy Lab Routine Hormone disorder Insulin resistance Weight gain Expected: 01/09/2025 (Approximate), Expires: 01/09/2026 CBC and differential Lab Routine Hormone disorder Insulin resistance Weight gain Expected: 01/09/2025 (Approximate), Expires: 01/09/2026 Ferritin Lab Routine Hormone disorder Insulin resistance Weight gain Expected: 01/09/2025 (Approximate), Expires: 01/09/2026 documented as of this encounter Visit Diagnoses Diagnosis Hormone disorder Unspecified endocrine disorder Insulin resistance Other abnormal glucose Weight gain Other symptoms concerning nutrition, metabolism, and development documented in this encounter Care Teams Plexiglas Former Relationship Specialty Start Date End Date Radha Sanchez MD [address] [place] [address] PCP - General Family Medicine 12/12/22 documented as of this encounter
--- OUTSIDE RECORDS SUMMARY | 2025-01-16 09:51 | XMS_ITS | Encounter Summary ---
Author Organization [facility] Address [address] [facility] [place] [address] Care Team Providers Care Truer Pinion And Wheel Name Role Phone Radha Sanchez MD Primary Care Provider [phone] Encounter Details Date Type Department Care Team (Late st Contact Info) Description 04/10/2024 Abstract [facility] [address] [place] [address] Natalia Choi LPN Social History Tobacco [...] Office Visit [facility] [address] [place] [address] Georgi Carreon DPMiles [address] [place] [id number] 07/29/2025 3:00 PM EDT Office Visit [facility] [address] [place] [address] Sanjeev Lopez DO [address] [facility] [place] [address] documented as of this encounter Visit Diagnoses Not on filedocumented in this encounter Care Teams Truer Pinion And Wheel Relationship Specialty Start Date End Date Radha Sanchez MD [address] [facility] [place] [address] PCP - General Family Medicine 12/12/22 documented as of this encounter
--- OUTSIDE RECORDS SUMMARY | 2025-01-16 09:51 | XMS_ITS | Encounter Summary ---
Author Organization [employer] Address [facility]-[id number] [address] [place] [address] Care Team Providers Care Mud Mixer Operator Name Role Phone Radha Sanchez MD Primary Care Provider [phone] Encounter Details Date Type Department Care Team (Late st Contact Info) Description 09/27/2021 Orders Only [facility] [address] [place] [phone] Willa Stevens Acute bilateral low back pain [...] EMG (09/27/2021 10:00 AM EDT) Lisette Murillo TEACHER HOME THERAPY-MANAGER INPATIENT NEUROLOGY ORDERABLES Ed ited Result - Final [...] documented as of this encounter Care Teams Mud Mixer Operator Relationship Specialty Start Date End Date Radha Sanchez MD [address] [place] [address] PCP - General 03/13/23 documented as of this encounter
--- OUTSIDE RECORDS SUMMARY | 2025-01-16 09:52 | XMS_ITS | Clinical Summary ---
Author Organization [employer] Address [facility]-[id number] [address] [place] [address] Care Team Providers Care Service Advisor Name Role Phone Radha Sanchez MD Primary Care Provider [phone] Allergies Active Allergy Reactions Criticality Noted Date [...] ONETOUCH VERIO TEST STRIPS strip 025 Active ONETOUCH DELICA PLUS LANCET 33 gauge misc 025 Active amLODIPine (NORVASC) 5 mg tablet Take 2 tablets (10 mg total) by mouth in the morning. 025 2025 Active multivitamin-min- iron-FA-vit K 18 mg iron-400 mcg-25 mcg tablet Take by mouth. Active magnesium oxide (MAGOX) 400 mg tablet [...] (or sleep). 120 tablet 2 025 Active viloxazine (QELBREE) 200 mg capsule,extended release 24hrIndications:A ttention deficit hyperactivity disorder (ADHD), predominantly inattentive type Take 400 mg by mouth in the morning. 60 capsule 5 025 Active viloxazine (QELBREE) 200 mg capsule,extended release 24hrIndications:A DHD (attention deficit hyperactivity disorder), inattentive type Take two 200 mg capsules (400 mg total) in the morning by mouth. 63 capsule 025 Active lisdexamfetamine (VYVANSE) 40 mg capsuleIndication s:Attention deficit hyperactivity disorder (ADHD), predominantly inattentive type Take 1 capsule (40 mg total) by mouth every morning. Max Daily Amount: 40 mg 30 capsule 025 Active tirzepatide (MOUNJARO) 12.5 mg/0.5 mL pen injector Inject 12.5 mg under the skin every 7 days. Active gelatin, empty no. 00, capsule Compound medication for hypothryroid 2024 Discontinued(P atient Stopped On Own) tirzepatide (MOUNJARO) 2.5 mg/0.5 mL pen injector Inject 2.5 mg under the skin every 7 days. Sundays Discontinued aspirin 325 mg tablet Take 1 tablet (325 mg total) by mouth in the morning. 2024 Discontinued(P atient Stopped On Own) lisdexamfetamine (VYVANSE) 40 mg capsuleIndication s:Attention deficit hyperactivity disorder (ADHD), predominantly inattentive type Take 1 capsule (40 mg total) by mouth every morning. Max Daily Amount: 40 mg 30 capsule 025 2024 Discontinued Active Problems Problem Noted [...] organization. Date Type Department Care Team Description 01/15/2025 Travel 01/03/2025 Orders Only [facility] [address] [place] [address] [address] [place] [address] Jo Meyer APRN-CNP 11/05/2024 Orders Only [facility] [address] [facility] [address] [facility] [place] [address] Jo Meyer APRN-CNP 10/21/2024 Travel from Last 3 Months Family History [...] drink = 0.6 oz pur e alcohol) [facility] Utilities Answer Date Recorded In the past [...] Sign Reading Time Taken Comments Blood Pressure 138/90 01/15/2025 3:52 PM EDT Pulse 104 01/15/2025 3:52 PM EDT Temperature 36.8 C (98.2 F) [...] Date Last Done Comments Depression Screening 1994 Adult BMI Follow Up Plan 2000 DTaP,Tdap and Td Vaccines (1 - Tdap) 2001 Influenza Vaccine 12/02/2024 Adult BMI Screening 08/08/2025 08/08/2024 Tobacco Screening 01/15/2026 01/15/2025 Pap Smear 07/23/2027 07/22/2024 Goals Goal Patient Goal Type Associated Problems Recent Progress Patient-Stated? Author have better pain control General Yes Azeb Dimas, RN Note: Evaluation of progress towards goal: johns removal; pain management Medical Devices Implanted Type Area Operations Support Manager Device Identifier Shelf Expiration Date Model / Serial / Lot Staple [id number] Str Grt Wht Jaws Ntnl Bn Rpl [id number] - Sna - [id number] Implanted:Qty : 1 on 08/08/2024 by Georgi Carreon DPM at [facility] Orthopedic Implant Left: Foot [employer] 10/15/2028 [id number] 020-S / NA / [id number] Staple [id number] Str Grt Wht Jaws Ntnl Bn Rpl [id number] - Sna - [id number] Implanted:Qty : 1 on 08/08/2024 by Georgi Carreon DPM at [facility] Orthopedic Implant Left: Foot [employer] 05/31/2028 [id number] 515-S / NA / [id number] Screw Bn 13mm 2mm Bite Mnstr St Ns - Sna - [id number] Implanted:Qty : 1 on 08/08/2024 by Georgi Carreon DPM at [facility] Screw Left: Foot [employer] [id number] 13S / NA / NA Screw Bn 10mm 2mm Hd Mn-Mnstr St Ns - [id number] Implanted:Qty : 2 on 08/08/2024 by Georgi Carreon DPM at [facility] Screw Left: Foot [employer] [id number] 10S / / Explanted Type Area Operations Support Manager Device Identifier Shelf Expiration Date Model / Serial / Lot Wire Fx Krsh 1.6mm 100mm 1 End Troc Tip Smth - [id number] Explanted:Qty : 4 on 08/08/2024 at [facility] Orthopedic Implant Left: Foot [employer] [id number] 610 / / Wire Fx Krsh 1.6mm 150mm 1 End Troc Tip Smth Rpl [id number] - [id number] Explanted:Qty : 1 on 08/08/2024 at [facility] Orthopedic Implant Left: Foot [employer] [id number] 615 / / Wire Fx Krsh .9mm 150mm 1 End Troc Pnt Smth Ns - [id number] Explanted:Qty : 2 on 08/08/2024 by Georgi Carreon DPM at [facility] Orthopedic Implant Left: Foot [employer] [id number] 915 / / Guidewire Orth 1.6mm 150mm 2 Blnt Smth - [id number] Explanted:Qty : 1 on 08/08/2024 at [facility] Other Implant Left: Foot [employer] [id number] 615 / / Screw Bn 12mm 2mm Hd Mn-Mnstr St Ns - Sna - [id number] Explanted:Qty : 1 on 08/08/2024 by Georgi Carreon DPM at [facility] Screw Left: Foot [employer] [id number] 12S / NA / NA Insurance ANGELICA Advance Directives * Full Code (Latest Code Status on File) Date Activated Date Inactivated Comments 01/25/2024 2:30 PM 01/26/2024 2:17 PM Care Teams Service Advisor Relationship Specialty Start Date End Date Radha Sanchez MD [address] [place] [address] PCP - General 03/13/23
--- OUTSIDE RECORDS SUMMARY | 2025-01-16 09:53 | XMS_ITS | Encounter Summary ---
Author Organization [facility] Address [address] [place] [address] Care Team Providers Care Cigarette Catcher Name Role Phone Radha Sanchez MD Primary Care Provider [phone] Encounter Details Date Type Department Care Team (Late st Contact Info) Description 05/23/2023 Clinisync Result Encounter [facility] External Department Unsolicited Sanjeev Lopez, DO [address] [place] [address] [address] [place], [place] [phone] Social History Tobacco Use Types Packs/Day Years [...] Office Visit [facility] [address] [place] [phone] Georgi Carreon, DPMiles [address] [place], [place] [address] 07/29/2025 3:00 PM EDT Office Visit [facility] [address] [facility] [place] [address] Sanjeev Lopez DO [address] [facility] [place] [address] documented as of this encounter Procedures Procedure Name Priority Date/Time Associated Diagnosis Comments MM POST BIOPSY LT 05/23/2023 2:3 8 PM EST documented in this encounter Results * MM POST BIOPSY LT (05/23/2023 2:38 PM EST) Anatomical Region Laterality Modality Other 05/23/2023 2:38 PM EST Narrative 05/23/2023 2:39 PM EST [address] [address] Mammography Report Signed Patient: CHAR DUMONT MR#: [id number] : 1980 Acct:[id number] Age/Sex: 42 / F ADM Date: 05/23/23 Loc: MAMMO Attending Dr: Sanjeev Lopez D.O. Ordering Physician: Sanjeev Lopez D.O. Results: Date of Service: 05/23/23 Follow Up: Procedure(s): MM post biopsy LT Accession Number(s): [id number] cc: Radha Sanchez M.D.; Sanjeev Lopez D.O. Patient Name: CHAR DUMONT MR#: [id number] : 1980 Exam Date: 05/23/2023 Ordering Doctor: [...] M.D. Signed By: 05/23/23 1439 DD/ TD/TT: Pipe Washer: Procedure Note Radiology, Radiologist, MD - 05/23/2023 [place] [address] Mammography Report Signed Patient: CHAR DUMONT DMR#: [id number] : 1980Acct:[id number] Age/Sex: 42 / FADM Date: 05/23/23 Loc: MAMMO Attending Dr: Sanjeev Lopez D.O. Ordering Physician: Sanjeev Lopez D.O.Results: Date of Service: 05/23/23Follow Up: Procedure(s): MM post biopsy LT Accession Number(s): [id number] cc: Radha Sanchez M.D.; Sanjeev Lopez D.O. Patient Name: CHAR DUMONT MR#: [id number] : 1980 Exam Date: 05/23/2023 Ordering Doctor: [...] M.D. Signed By:05/23/23 1439 DD/ 1438 TD/TT: Pipe Washer: us Sanjeev Jessica DO [facility] Final Result documented in this encounter Visit Diagnoses Not on filedocumented in this encounter Care Teams Cigarette Catcher Relationship Specialty Start Date End Date Radha Sanchez MD [address] [place] [address] PCP - General Family Medicine 12/12/22 documented as of this encounter
--- OUTSIDE RECORDS SUMMARY | 2025-01-16 09:53 | XMS_ITS | Encounter Summary ---
Author Organization [employer] tem Address [facility]-[id number] [address] [place] [address] Care Team Providers Care Canal Structure Operator Name Role Phone Radha Sanchez MD Primary Care Provider [phone] Encounter Details Date Type Department Care Team (Latest Contact Info) Description 01/15/2025 Travel Social History Tobacco Use Types Packs/Day Years Used Date Smoking Tobacco: Never Smokeless Tobacco: Never Alcohol Use Standard Drinks/Week Comments No 0 (1 standard drink = 0.6 oz pur e alcohol) [facility] Utilities Answer Date Recorded In the past [...] documented as of this encounter Care Teams Canal Structure Operator Relationship Specialty Start Date End Date Radha Sanchez MD [address] [place] [address] PCP - General 03/13/23 documented as of this encounter
--- OUTSIDE RECORDS SUMMARY | 2025-01-16 09:53 | XMS_ITS | Encounter Summary ---
Author Organization [facility] Address [address] [facility] [place] [address] Care Team Providers Care Tree Killer Name Role Phone Radha Sanchez MD Primary Care Provider [phone] Encounter Details Date Type Department Care Team (Late st Contact Info) Description 08/06/2024 Orders Only [facility] [address] [place] [address] Lydia Keenan LPN [address] [place] [id number] Social History Tobacco Use Types Packs/Day Years [...] Office Visit [facility] [address] [place] [address] Georgi Carreon DPM [address] [place], [place] [address] 07/29/2025 3:00 PM EDT Office Visit [facility] [address] [place] [address] Sanjeev Lopez DO [address] [facility] [place] [address] documented as of this encounter Procedures Procedure Name Priority Date/Time Associated Diagnosis Comments PAP SMEAR Routine 07/22/2024 12:00 AM EDT documented in this encounter Results * Pap Smear (07/22/2024 12:00 AM EDT) Swab Cervical swab / Unknown Jessica Nurse [facility] CYTOLOGY ORDERABLES Final Result EXTERNAL LAB documented in this encounter Visit Diagnoses Not on filedocumented in this encounter Care Teams Tree Killer Relationship Specialty Start Date End Date Radha Sanchez MD [address] [facility] [place] [address] PCP - General Family Medicine 12/12/22 documented as of this encounter
--- OUTSIDE RECORDS SUMMARY | 2025-01-16 09:53 | XMS_ITS | Encounter Summary ---
Author Organization [facility] Address [address] [place] [address] Care Team Providers Care Education Consultant Name Role Phone Radha Sanchez MD Primary Care Provider [phone] Encounter Details Date Type Department Care Team (Late st Contact Info) Description 05/10/2023 Clinisync Result Encounter [facility] External Department Unsolicited Sanjeev Lopez, DO [address] [place] [address] Dr [place], [place] [phone] Social History Tobacco Use Types Packs/Day Years [...] Office Visit [facility] [address] [place] [phone] Georgi Carreon, DPMiles [address] [place], [place] [phone] 07/29/2025 3:00 PM EDT Office Visit [facility] [address] [place] [phone] Sanjeev Lopez DO [address] [facility] [address] [place] [address] documented as of this encounter Procedures Procedure [...] EST Narrative 05/10/2023 8:43 AM EST The [address] [address] Mammography Report Signed Patient: CHAR DUMONT MR#: [id number] : 1980 Acct:[id number] Age/Sex: 42 / F ADM Date: 05/10/23 Loc: MAMMO Attending Dr: Sanjeev Lopez D.O. Ordering Physician: Sanjeev Lopez D.O. Results: Date of Service: 05/10/23 Follow Up: Procedure(s): MM diagnostic mammo unilat LT Accession Number(s): [id number] cc: Radha Sanchez M.D.; Sanjeev Lopez D.O. Patient Name: CHAR DUMONT MR#: [id number] : 1980 Exam Date: 05/10/2023 Ordering Doctor: [...] stomach cancer at age 67. LOCATION: The [facility] BREAST COMPOSITION: Scattered areas fibroglandular [...] Silva M.D. Signed By: 05/10/2343 DD/ TD/TT: Receiving Lead: Procedure Note Radiology, Radiologist, - 05/10/2023 [place] [address] Mammography Report Signed Patient: CHAR DUMONT DMR#: [id number] : 1980Acct:[id number] Age/Sex: 42 / FADM Date: 05/10/23 Loc: MAMMO Attending Dr: Sanjeev Lopez D.O. Ordering Physician: Sanjeev Lopez D.O.Results: Date of Service: 05/10/23Follow Up: Procedure(s): MM diagnostic mammo unilat LT Accession Number(s): [id number] cc: Radha Sanchez M.D.; Sanjeev Lopez D.O. Patient Name: CHAR DUMONT MR#: [id number] : 1980 Exam Date: 05/10/2023 Ordering Doctor: [...] stomach cancer at age 67. LOCATION: The [facility] BREAST COMPOSITION: Scattered areas fibroglandular [...] M.D. Signed By:05/10/23 0843 DD/ 0842 TD/TT: Receiving Lead: Sanjeev Jessica DO [facility] Final Result * ALL THYROXINE (T4) FREE (05/10/2023 7:48 AM EST) FREE T4 1.29 0.76 - 1.46 ng/dL TB 05/10/2023 7:48 AM EST 05/10/2023 7:51 AM EST Narrative [facility] - 05/10/2023 10:22 AM EST Sanjeev Jessica DO [facility] Final Result [facility] * [facility] VITAMIN D 25 [place] (05/10/2023 7:48 AM EST) Pathologist [facility] VITAMIN D 29.0 ng/mL [facility] Comment: <20 ng/mL Vit D deficient 20-<30 ng/mL Vit D insufficient 30-100 ng/mL Vit D sufficient >100 ng/mL Potential Toxicity 05/10/2023 7:48 AM EST 05/10/2023 7:51 AM EST Narrative [facility] - 05/10/2023 10:22 AM EST [facility] Jessica DO CL[facility] Final Result [facility] * CCF FERRITIN (05/10/2023 7:48 AM EST) Pathologist [facility] FERRITIN 40.0 8.0 - 252.0 ng/mL TB 05/10/2023 7:48 AM EST 05/10/2023 7:51 AM EST Narrative [facility] - 05/10/2023 10:22 AM EST Sanjeev Jessica DO [facility] Final Result [facility] * MLR HEMOGLOBIN A1C (05/10/2023 7:48 AM EST) Pathologist [facility] GLYCOHEMOGLOBIN A1C 4.9 4.5 - 6.2 % [facility] Comment: ADA RECOMMENDED LIMIT 4.0 - 6.0 ADA THERAPEUTIC TARGET < 7.0 ACTION SUGGESTED > 7.0 ESTIMATED AVERAGE GLUCOSE 94 mg/dL TB 05/10/2023 7:48 AM EST 05/10/2023 7:51 AM EST Narrative [facility] - 05/10/2023 9:33 AM EST Sanjeev Jessica DO [facility] Final Result Performing Organization Address [facility]/ZIP Co de Phone Number [facility] * ALL THYROID STIM HORMONE (05/10/2023 7:48 AM EST) Pathologist [facility] THYROID STIMULATING HORMONE 1.735 0.358 - 3.740 uIU/mL TB 05/10/2023 7:48 AM EST 05/10/2023 7:51 AM EST Narrative [facility] - 05/10/2023 9:02 AM EST Levelo DO CLINISYNC Final Result Performing Organization Address [facility] Co de Phone Number [facility] * ALL THYROXINE (T4) (05/10/2023 7:48 AM EST) Pathologist [facility] T4 THYROXINE 9.00 4.80 - 13.90 ug/dL TB 05/10/2023 7:48 AM EST 05/10/2023 7:51 AM EST Narrative [facility]NC - 05/10/2023 9:02 AM EST Levelo DO CL[facility] Final Result Performing Organization Address [facility] Co de Phone Number [facility] * ALL T3 FREE (05/10/2023 7:48 AM EST) Pathologist [facility] FREE T3 2.67 2.18 - 3.98 pg/mL TB 05/10/2023 7:48 AM EST 05/10/2023 7:51 AM EST Narrative [facility] - 05/10/2023 9:02 AM EST us Sanjeev Jessica DO [facility] Final Result Performing Organization Address [facility]/ZIP Co de Phone Number [facility] * [facility] GLUCOSE BLOOD (05/10/2023 7:48 AM EST) GLUCOSE 81 74 - 106 mg/dL TB[facility] 05/10/2023 7:48 AM EST 05/10/2023 7:51 AM EST Narrative [facility] - 05/10/2023 9:02 AM EST us Sanjeev Jessica DO [facility] Final Result Performing Organization Address [facility] Co de Phone Number [facility] documented in this encounter Visit Diagnoses Not on filedocumented in this encounter Care Teams Education Consultant Relationship Specialty Start Date End Date Radha Sanchez MD [address] [place] [phone] PCP - General Family Medicine 12/12/22 documented as of this encounter
--- OUTSIDE RECORDS SUMMARY | 2025-01-16 09:53 | XMS_ITS | Encounter Summary ---
Author Organization [facility] Address [address] [place] [address] Care Team Providers Care Fleet Coordinator Name Role Phone Radha Sanchez MD Primary Care Provider [phone] Encounter Details Date Type Department Care Team (Late st Contact Info) Description 05/10/2023 Clinisync Result Encounter [facility] External Department Unsolicited Sanjeev Lopez, DO [address] [place] [address] Dr [place], [place] [phone] Social History Tobacco Use Types Packs/Day Years [...] Office Visit [facility] [address] [place] [phone] Georgi Carreon, DPMiles [address] [place], [place] [phone] 07/29/2025 3:00 PM EDT Office Visit [facility] [address] [facility] [place] [phone] Sanjeev Lopez DO [address] [address] documented as of this encounter Procedures Procedure Name Priority Date/Time Associated Diagnosis Comments US BREAST LT LIMITED 05/10/2023 8:42 AM EST CORTISOL, FREE DIALYSIS, LCMS Routine 05/10/2023 7:48 AM EST [facility] INSULIN Routine 05/10/2023 7:48 AM EST [facility] ESTRONE Routine 05/10/2023 7:48 AM EST ALL C-PEPTIDE Routine 05/10/2023 7:48 AM EST documented in this encounter Results * US BREAST LT LIMITED (05/10/2023 8:42 AM EST) Anatomical Region Laterality Modality Other 05/10/2023 8:42 AM EST Narrative 05/15/2023 1:13 PM EST The [address] [address] Ultrasound Report Signed Patient: CHAR DUMONT MR#: [id number] : 1980 Acct:[id number] Age/Sex: 42 / F ADM Date: 05/10/23 Loc: MAMMO Attending Dr: Sanjeev Lopez D.O. Ordering Physician: Sanjeev Lopez D.O. Date of Service: 05/10/23 Procedure(s): US breast LT limited Accession Number(s): [id number] cc: Radha Sanchez M.D.; Sanjeev Lopez D.O. Patient Name: CHAR DUMONT MR#: [id number] : 1980 Exam Date: 05/10/2023 Ordering Doctor: [...] stomach cancer at age 67. LOCATION: The [facility] BREAST COMPOSITION: Scattered areas [...] Signed By: 05/15/23 1313 DD/ 0842 TD/TT: Crop Pest Control Specialist: Procedure Note Radiology, Radiologist, MD - 05/15/2023 [place] [address] Ultrasound Report Signed Patient: CHAR DUMONT DMR#: [id number] : 1980Acct:[id number] Age/Sex: 42 / FADM Date: 05/10/23 Loc: MAMMO Attending Dr: Sanjeev Lopez D.O. Ordering Physician: Sanjeev Lopez D.O. Date of Service: 05/10/23 Procedure(s): US breast LT limited Accession Number(s): [id number] cc: Radha Sanchez M.D.; Sanjeev Lopez D.O. Patient Name: CHAR DUMONT MR#: [id number] : 1980 Exam Date: 05/10/2023 Ordering Doctor: [...] stomach cancer at age 67. LOCATION: The [facility] BREAST COMPOSITION: Scattered areas [...] M.D. Signed By:05/15/23 1313 DD/ 0842 TD/TT: Crop Pest Control Specialist: Sanjeev Lopez DO [facility] Final Result * ALL C-PEPTIDE (05/10/2023 7:48 AM EST) C-PEPTIDE, SERUM 2.8 1.1 - 4.4 ng/mL [facility] Comment: C-Peptide reference interval is for fasting patients. Performed at: [address] [id number] Electrical Electronics Engineer: Theron Roblero PhD, Phone: [phone] 05/10/2023 7:48 AM EST 05/10/2023 7:51 AM EST Narrative [facility] - 05/18/2023 5:08 PM EST Sanjeev Jessica DO CL[facility] Final Result Performing Organization Address [facility]/ZIP Co de Phone Number [facility] * [facility] ESTRONE (05/10/2023 7:48 AM EST) ESTRONE, SERUM 65 27 - 231 pg/mL [facility] Comment: Range Adult (Premenopausal) 27 - 231 Menstrual Cycle (1-10 days) 19 - 149 Menstrual Cycle (11-20 days) 32 - 176 Menstrual Cycle (21-30 days) 37 - 200 Performed at: [address] [id number] Electrical Electronics Engineer: Katelynn Macdonald MD, Phone: [phone] 05/10/2023 7:48 AM EST 05/10/2023 7:51 AM EST Narrative CLINISYNC - 05/18/2023 5:08 PM EST [facility] Jessica DO [facility] Final Result Performing Organization Address [facility] Co de Phone Number [facility] * TBH INSULIN (05/10/2023 7:48 AM EST) INSULIN 7.0 2.6 - 24.9 uIU/mL [facility] Comment: Performed at: [address] [id number] Electrical Electronics Engineer: Theron Roblero PhD, Phone: [phone] 05/10/2023 7:48 AM EST 05/10/2023 7:51 AM [...] 4 PM 0.042 - 0.872 Performed at: [place] [address] [place] [id number] Electrical Electronics Engineer: Kal Archibald MD, Phone: [phone] 05/10/2023 7:48 AM EST 05/10/2023 7:51 AM EST Narrative CLIN[facility]NC - 05/16/2023 6:08 PM EST us Sanjeev Jessica DO LAB BLOOD ORDERABLES Final Resul t [facility] documented in this encounter Visit Diagnoses Not on filedocumented in this encounter Care Teams Fleet Coordinator Relationship Specialty Start Date End Date Radha Sanchez MD [address] [place] [address] PCP - General Family Medicine 12/12/22 documented as of this encounter
--- OUTSIDE RECORDS SUMMARY | 2025-01-16 09:53 | XMS_ITS | Encounter Summary ---
Author Organization [facility] Address [address] [place] [address] Care Team Providers Care Bank Vault Custodian Name Role Phone Radha Sanchez MD Primary Care Provider [phone] Encounter Details Date Type Department Care Team (Late st Contact Info) Description 05/10/2023 Clinisync Result Encounter [facility] External Department Unsolicited Sanjeev Lopez, DO [address] [place] [address] Dr [place], [place] [phone] Social History Tobacco Use Types Packs/Day Years [...] Office Visit [facility] [address] [place] [phone] Georgi Carreon, DPMiles [address] [place], [place] [phone] 07/29/2025 3:00 PM EDT Office Visit [facility] [address] [facility] [place] [phone] Sanjeev Lopez, [address] [facility] [place] [address] documented as of this encounter Procedures Procedure [...] EST Narrative 05/15/2023 1:13 PM EST The [address] [address] Mammography Report Signed Patient: CHAR DUMONT MR#: [id number] : 1980 Acct:[id number] Age/Sex: 42 / F ADM Date: 05/10/23 Loc: MAMMO Attending Dr: Sanjeev Lopez D.O. Ordering Physician: Sanjeev Lopez D.O. Results: Date of Service: 05/10/23 Follow Up: Procedure(s): MM diagnostic mammo unilat LT Accession Number(s): [id number] cc: Radha Sanchez M.D.; Sanjeev Lopez D.O. Patient Name: CHAR DUMONT MR#: [id number] : 1980 Exam Date: 05/10/2023 Ordering Doctor: [...] stomach cancer at age 67. LOCATION: The [facility] BREAST COMPOSITION: Scattered areas fibroglandular density. [...] Signed By: 05/15/23 1313 DD/ 0842 TD/TT: Shirt Bander: Procedure Note Radiology, Radiologist, - 06/07/2023 [place] [address] Mammography Report Signed Patient: CHAR DUMONT DMR#: [id number] : 1980Acct:[id number] Age/Sex: 42 / FADM Date: 05/10/23 Loc: MAMMO Attending Dr: Sanjeev Lopez D.O. Ordering Physician: Sanjeev Lopez D.O.Results: Date of Service: 05/10/23Follow Up: Procedure(s): MM diagnostic mammo unilat LT Accession Number(s): [id number] cc: Radha Sanchez M.D.; Sanjeev Lopez D.O. Patient Name: CHAR DUMONT MR#: [id number] : 1980 Exam Date: 05/10/2023 Ordering Doctor: [...] stomach cancer at age 67. LOCATION: The [facility] BREAST COMPOSITION: Scattered areas fibroglandular density. [...] M.D. Signed By:05/15/23 1313 DD/ 0842 TD/TT: Shirt Bander: Sanjeev Jessica DO [facility] Final Result * [facility] TESTOSTERONE FREE/TOT EQUILIB (05/10/2023 7:48 AM EST) Pathologist [facility] TESTOSTERONE 22 8 - 60 ng/dL [facility] FREE TESTOSTERONE(DIRE CT) 0.6 0.0 - 4.2 pg/mL [facility] Comment: Performed at: [address] [id number] Credit Union Examiner: Theron Roblero PhD, Phone: [phone] Performed at: [address] [id number] Credit Union Examiner: Katelynn Macdonald MD, Phone: [phone] 05/10/2023 7:48 AM EST 05/10/2023 7:51 AM EST Narrative [facility]IN[facility] - 06/15/2023 1:47 PM EDT Sanjeev Jessica DO CLIN[facility] Final Result Performing Organization Address City/[facility]/ZIP Co de Phone Number [facility] * [facility] THYROID ANTIBODIES (05/10/2023 7:48 AM EST) [facility] THYROID PEROXIDASE (TPO) AB 11 0 - 34 IU/mL [facility] THYROGLOBULIN ANTIBODY <1.0 0.0 - 0.9 IU/mL [facility] Comment: Thyroglobulin Antibody measured by Sarah Tyler Methodology Performed at: [address] [id number] Credit Union Examiner: Theron Roblero PhD, Phone: [phone] 05/10/2023 7:48 AM EST 05/10/2023 7:51 AM EST Narrative CLIN[facility]YNC - 06/15/2023 1:47 PM EDT us Sanjeev Jessica DO CLIN[facility] Final Result Performing Organization Address City/[facility]/ZIP Co de Phone Number [facility] * [facility]H SEROTONIN (05/10/2023 7:48 AM EST) SEROTONIN, SERUM 105 31 - 207 ng/mL [facility] Comment: This test was developed and its performance characteristics determined by [facility]. It has not been cleared or approved by the Food and Drug Administration. Performed at: [address] [id number] Credit Union Examiner: Katelynn Macdonald MD, Phone: [phone] 05/10/2023 7:48 AM EST 05/10/2023 7:51 AM EST Narrative CLINISYNC - 06/15/2023 1:47 PM EDT [facility] Final Result Performing Organization Address [facility]/ZIP Co de Phone Number [facility] * METRO SEX BINDING HORMONE (SHBG), TESTOSTERONE, FREE AND BIOAVAILABLE (05/10/2023 7:48 AM EST) [facility] SEX HORM BINDING GLOB, SERUM 49.1 24.6 - 122.0 nmol/L [facility] Comment: Performed at: [address] [id number] Credit Union Examiner: Theron Roblero PhD, Phone: [phone] 05/10/2023 7:48 AM EST 05/10/2023 7:51 AM EST Narrative CLINISYNC - 06/15/2023 1:47 PM EDT Sanjeev Jessica DO CLIN[facility] Final Result Performing Organization Address City/[facility]/ZIP Co de Phone Number [facility] * ALL T3 REVERSE (05/10/2023 7:48 AM EST) [facility] REVERSE T3, SERUM 23.0 9.2 - 24.1 ng/dL [facility] Comment: This test was developed and its performance characteristics determined by [facility]. It has not been cleared or approved by the Food and Drug Administration. Performed at: [address] [id number] Credit Union Examiner: Katelynn Macdonald MD, Phone: [phone] 05/10/2023 7:48 AM EST 05/10/2023 7:51 AM EST Narrative CLINISYNC - 06/15/2023 1:47 PM EDT Sanjeev Jessica DO CLINIS[facility]NC Final Result Performing Organization Address [facility]/ZIP Co de Phone Number [facility] * ALL ESTRONE(E1) (05/10/2023 7:48 AM EST) [...] DO CLINISYNC Final Result Performing Organization Address [facility] Co de Phone Number [facility] * ALL PROGESTERONE (05/10/2023 7:48 AM EST) PROGESTERONE 0.1 . ng/mL [facility] Comment: Follicular phase 0.1 - 0.9 Luteal phase 1.8 - 23.9 Ovulation phase 0.1 - 12.0 First trimester 11.0 - 44.3 Second trimester 25.4 - 83.3 Third trimester 58.7 - 214.0 Postmenopausal 0.0 - 0.1 Performed at: [address] [id number] Credit Union Examiner: Theron Roblero PhD, Phone: [phone] 05/10/2023 7:48 AM EST 05/10/2023 7:51 AM EST Narrative CLINISYNC - 06/15/2023 1:47 PM EDT us Sanjeev Jessica DO CLIN[facility]NC Final Result [facility] TB * ALL DHEA SULFATE (05/10/2023 7:48 AM EST) DHEA-SULFATE 194.0 57.3 - 279.2 ug/dL [facility] 05/10/2023 7:48 AM EST 05/10/2023 7:51 AM EST Narrative CLINISYNC - 06/15/2023 1:47 PM EDT Sanjeev Jessica DO CLINISYNC Final Result Performing Organization Address City/[facility]/ZIP Co de Phone [facility] documented in this encounter Visit Diagnoses Not on filedocumented in this encounter Care Teams Bank Vault Custodian Relationship Specialty [place] [address] [place] [phone] PCP - General Family Medicine 12/12/22 documented as of this encounter
--- OUTSIDE RECORDS SUMMARY | 2025-01-16 09:53 | XMS_ITS | CCD ---
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 Name Role Phone Johnathon Winter MD Primary Care Provider JESSICA ., DR ROMERO Admitting Unavailable JESSICA ., DR ROMERO Attending Unavailable REQUEST, NONE LISTED Primary Care Unavaila ble JESSICA ., DR ROMERO Consulting Unavailable [employer] Unavailable JESSICA ., DR ROMERO Admitting [...] Care Provider MD Tee Peterson Attending Provider [phone] ROHIT LARKIN Attending Unavailable JOHNATHON WINTER Referring Unavailable JOHNATHON WINTER Primary Care Unavailable JOHNATHON WINTER Referring Unavailable JOHNATHON WINTER Primary Care Unavailable KAL MARTINEZ Attending Unavailable ROHIT LARKIN Attending Unavailable ASMITA MONTGOMERY Referring Unavailable JOHNATHON WINTER Primary Care Unavailable DO Sanjeev Lopez Attending Provider [phone] Tee Peterson Admitting Unavailable Tee Peterson Attending Unavailable Sanjeev Lopez Attending Unavailable Sanjeev Lopez Admitting Unavailable JOHNATHON WINTER Referring Unavailable JOHNATHON WINTER Primary Care Unavailable PALSEBASTIEN CELIS Admitting Unavailable PALSEBASTIEN CELIS Attending Unavailable SEBASTIEN PRICE Referring Unavailable WINTER, JOHNATHON E Primary Care Unavailable FIDEL MARTINEZ Attending Unavailable WINTER, JOHNATHON E Primary Care Unavailable Johnathon Wintre MD Primary Care Provider Winter, Johnathon E Primary Care Unavailable KELI Resendez Attending Unavailable KELI Resendez Admitting Unavailable Winter, Johnathon E Primary Care Unavailable Santy Mckeon Attending Unavailable Santy Mckeon Admitting Unavailable Winter, Johnathon E Primary Care Unavailable Johnathon Winter MD Primary Care Provider Johnathon Winter MD Primary Care Provider [phone] Johnathon Winter MD Primary Care Provider Johnathon Winter MD Primary Care Provider JUDI ORTEGA Attending Unavailable WINTER, JOHNATHON E [...] Care Unavailable BURT MEYER Attending Unavailable WINTER, JOHNATHNO E Referring Unavailable WINTER, JOHNATHON E Primary Care Unavailable RUSHER, GEORGI S Attending Unavailable RUSHER, GEORGI S Referring Unavailable SANJEEV LOPEZ Attending Unavailable RUSHER, GEORGI S Attending Unavailable RUSHER, GEORGI S Attending Unavailable RUSHER, GEORGI S Referring Unavailable SANJEEV LOPEZ Attending Unavailable SANJEEV LOPEZ Attending Unavailable SANJEEV LOPEZ Attending Unavailable GEORGI CARREON S Attending Unavailable RONNI, GEORGI S Attending Unavailable RONNI, GEORGI S Referring Unavailable RUSHER, GEORGI S Attending Unavailable GEORGI CARREON S Referring Unavailable SANJEEV LOPEZ Attending Unavailable RUTHIE PHILLIPS Attending Unavailable RUTHIE PHILLIPS Attending Unavailable Christiano Rivera MD Attending Unavailable Felicia SÁNCHEZ, Bhavin Primary Care Unavailable Allergies Allergy Classification Reported Allergen(s) Allergy Type Date of Onset Reaction(s) Facility (20 sources) Topiramate; Translations: [TOPIRAMATE] Propensity to adverse reactions 4 Swelling [facility] (8 sources) Adhesive agent; Translations: [ADHESIVE] Propensity to adverse reactions to drug (disorder) [facility] topiramate Drug Allergy 4 Swelling, Other (See Comments) [facility] Work Phone: Medications Current Medications Medication [...] 9:10am Start: 2022 take 1 capsule by mo [...] mg by sub cutaneous injection every week THOMAS 7.5 mg/0.5 mL pen injector Inject 7.5 mg under the skin once a week. 0 02/27/2023 Active eecbigvqsfhp-ezs-ivaf-FA-vit K 18 mg iron-400 mcg-25 mcg tablet (2 sources) multivitamin-min -iron-FA-vit K 18 mg iron-400 mcg-25 mcg tablet Take by mouth. Active nystatin 100 unt/mg topical powder (20 sources) Polyene Antifungal Star t: 10-02 End: 11-02 nystatin (Mycostatin) 286564 UNIT/GM powder Indications: Skin irritation Apply topically [...] 04/14/2023 Active Start: 04-14-2023 nystatin (Myco statin) 198232 UNIT/GM powder Indications: Skin irritation APPLY TO [...] days 20 tablet 0 08/19/2021 08/29/2021 Active Umo-Sbb-ZU-Fish Oil ([facility] GUMMY) 0.4-113.5 MG CHEW (2 [...] but otherwise deformity correction is holding well. [facility] Radiology Study observation (narrative) [facility] [id number] 10-24-2024 [phone] Call from [facility]. Latonya Meyer NP and Judi Ortega NP they would like cardiology clearance on Karuna they would like to start the patient on a stimulant and need your approval to do so. Please advise. Normal [facility] Patient Messageon 10-24-2024 Patient Message [id number] Cameron Dumont 1980 F Date Provider Department Center 10/24/2024 RUTHIE DEVRIES [facility] Family History Problem Relation Age of Onset Heart murmur Mother No Known Problems Father Family Status - Relation Status Age at Mother Alive Father Alive Normal [facility] XR Foot - left 3 [facility] [...] Hallux is rectus. Sesamoids are well reduced. [facility] Radiology Study observation (narrative) [facility] XR Foot - left 3 [facility] Result: AP, medial oblique, lateral views are nonweightbearing. Orthopedic implants intact without signs of lucency. First TMT appears well approximated without any joint space visible. Enthesophyte at the insertion of the Achilles tendon and plantar fascia. [facility] Radiology Study observation (narrative) [facility] Office Visiton 08-05-2024 Follow-up visit [id number] Cameron Dumont 1980 F Date Provider Department Center 08/05/2024 RUTHIE DEVRIES [facility] Family History Problem Relation Age of Onset Heart murmur Mother No Known Problems Father Family Status - Relation Status Age at Mother Alive Father Alive Level of Service:73906 [place] OFFICE/OUTPATIENT ESTABLISHED MOD MDM 30 MIN Normal [facility] IGP,APTIMA HPV,AGE GDLNon AGE GDLN ACOG TESTING Note . [facility] Comment on above: TESTS RESULT FLAG UN ITS REF RANGE LAB Clinician Provided Cytology Information Source.............Cervix;Endocervix No. of containers..01 ThinPrep Vial Age Algo ACOG Kathryn... 30-65 01 FLAG LEGEND: L-Low Normal,H-High Normal,LL-Alert Low,HH-Alert High <-Panic Low,>-Panic High,A-Abnormal,AA-Critical Abnormal Performed at: 01 =[address] [address] Alma Rosa Welch MD, HPV APTIMA Negative Negative [facility] Comment on above: This nucleic acid am plification test detects fourteen high- risk HPV types (16,18,31,33,35,39,45,51,52,56,58,59,66,68) without differentiation. Performed at: =[address] [id number] Client Account Specialist: Alma Rosa Welch MD, Phone: [phone] Performed at: [address] [id number] Client Account Specialist: Alma Rosa Welch MD, Phone: [phone] IGP, APTIMA HPV, RFX 16/18,45 Note . [facility] Comment on above: TESTS RESULT FLAG UN ITS REF RANGE LAB DIAGNOSIS: 02 NEGATIVE FOR INTRAEPITHELIAL LESION OR MALIGNANCY. Specimen adequacy: 02 Satisfactory for evaluation. Endocervical and/or squamous metaplastic cells (endocervical component) are present. Performed by: 02 Bianca Murphy, Staking Engineer (ASCP) . 02 Note: Note 02 The [...] <-Panic Low,>-Panic High,A-Abnormal,AA-Critical Abnormal Performed at: [address] [address] Alma Rosa Welch MD, BRUSH-SPATULA CERVIX ENDOCERVIX [facility] HCG ( test) Ql (U)o n 07-22-2024 Interpretation and review of laboratory results Normal [facility] Preg Test, Ur Negative Negative [facility] Human papilloma virus 16+18+ 31+33+35+39+45+51+52+56+58+59+66+68 DNA [Presence] in Luis Fernando 07-22-2024 HPV 16+18+31+33+35+39+45+51 +52+56+58+59+66+68 DNA Probe+sig amp Ql (Cvx) Human papilloma virus 16+18+31+33+35+39+45+51+ 52+56+58+59+66+68 DNA [Presence] in Cer Negative [facility] Comment on above: This nucleic acid am plification test detects fourteen high-risk HPV types (16,18,31,33,35,39,45,51,52,56,58,59,66,68)without differentiation.Performed at: = - [address] [id number] Director: Alma Rosa Welch MD, Phone: [phone] at: - [facility] [id number] Director: Alma Rosa Welch MD, Phone: [phone] No Panel Informationon 07-22 HPV High Risk Other Comment Note . [facility] Comment on above: TESTS RESULT FLAG UN ITS REF RANGE LAB -DIAGNOSIS: 02 NEGATIVE FOR INTRAEPITHELIAL LESION OR MALIGNANCY.Specimen adequacy: 02 Satisfactory for evaluation. Endocervical and/or squamous metaplastic cells (endocervical component) are present.Performed by: 02 Bianca Murphy, Staking Engineer ([facility]). 02Note: Note 02 The Pap [...] High <-Panic Low,>-Panic High,A-Abnormal,AA-Critical Abnormal ------Performed at:[address] [place] [address] Alma Rosa Welch MD, Reference Lab Test Patient Age Note . [facility] Comment on above: TESTS RESULT FLAG UN ITS REF RANGE LAB - Clinician Provided Cytology Information Source.............Cervix;Endocervix No. of containers..01 ThinPrep VialAge Rosa Elena MARSHALL Kathryn... 3065 FLAG LEGEND: L-Low Normal,H-High Normal,LL-Alert Low,HH-Alert High <-Panic Low,>-Panic High,A-Abnormal,AA-Critical Abnormal ------Performed at:01 =G [address] [address] Alma Rosa Welch MD, Urinalysis macro (dipstick) panel (U)on 07-22-2024 Bilirubin, UA Negative Negative - 4(70) +++ mg/dL [facility] Blood, UA Negative Negative - 50 Abdoul/mcL [facility] Clarity, UA Clear [facility] Color, UA Yellow [facility] Glucose, UA Negative Negative - 1999(110) ++++ mg/dL [facility] Interpretation and review of laboratory results Normal [facility] Ketones, UA Negative Negative - 160(16) ++++ mg/dL [facility] Leukocytes, UA Negative Negative - 500+++ Melisa/mcL [facility] Nitrite, UA Negative Negative - Positive [facility] pH, UA 5.5 5 - 9 [facility] Protein, UA Negative Negative - 1999(20) ++++ mg/dL [facility] Spec Grav, UA 1.005 1 - 1.03 [facility] Urobilinogen, UA 0.2 0.2 - 12 mg/dL [facility] 1,25-dihydroxyvitamin D [Mas s/Vol]on 07-17-2024 1,25-Dihydroxyvitamin D, S 27 pg/mL Normal 18-78 [facility] Comment on above: Result Comment: NOTE ADDITIONAL INFORMATION This test was developed and its performance characteristics determined by [facility] in a manner consistent with CLIA requirements. This test has not been cleared or approved by the U.S. Food and Drug Administration. Test Performed by: [facility] [address] [place] [address] Client Account Specialist: Miguel Anderson Ph.D.; CLIA# [id number] Performed By: #### 6 2290-2 #### [facility] ([id number]) [address] [place] [address], [place] [address] XR Foot - left 3 [facility] [...] the navicular consistent with a NC bar. [facility] Radiology Study observation (narrative) [facility] Basophils Auto (Bld) [#/Vol] on 07-08-2024 Basophils (Bld) [#/Vol] Automated basophil count 0.0-0.1 [facility] Basophils/100 WBC Auto (Bld) on 07-08-2024 Basophils/100 WBC (Bld) Automated basophil % 0. 2-2.0 [facility] Coding Summaryon 07-08-2024 Coding Summary HTMLBase 64 FdtqegsuRAb8cHl+PGhlYWQ+ FD6SCWOlF89fzLPjeF5jB1IQ TElOSywgQVBQTElOSyIgbmFt MN7keQJhAZOb IC8+TN9lKYDmKykvkAUhv8T9 wPP5I71yuy5vOTkecKT1UFXi CpMwdyfad1mjhOf2KQmjTjed OyBt NNAmoI36JCX2pP62Ur92iPGs uOGah7aoqJp2FiYrLJVnCMC2 wUxzJCmrc9JlSLDsB11paDQr c2U6 MWFrhUppqZRxGaXjfXG2xM1x CPevwdusi7drtomlGdl5re02 tDHyv8V0wLO5Z3MtqfJ9BAWa bGQg IympnLNQiI8ituncc7mpwtvg XxRnRXZsKBs2SJb0YYNvlNwv ZsQhPR24HGO7EQWmtlTeV5Yb LWFs cIbyQmB4t1X8Lv5ZZ2ZENhaq H6CKKPBRKXixyHT+QX04bi27 O1IrGbbgTnh0TRZdHXZ0mVO2 aD0n BNUnZCkmq9F1eAI1J1KvheTv mw1yo5vwVCZiIYavL17uhDGd u6F9PNSwqPS4VVGpcBtyTqGa aG93 Oyc+DLIvoYfjh9VsOkyad9ij e7yxpVe3TnwdWNGhziJrlRiv FKC7l5QaMd9pNABpbHV8aJQ0 aD0i LlTcWgG9QWujB257BaJstQMl MjuvM96cE3CccIQ+PHRyPjx0 SLCzcRogUD1qN2JkKTLhjnpe bGVm gVwuCF8tTHPrdsvgAWKlqC2f OYHuN6f6QvVdUrH8LKxhY6Ma PJDqldxuKk12gJ4qTkPkXfJ3 MGlu L3BhblS4YODhzQCqDHehCNL8 O85hh4B9MNSbSHHsJMB0mDP1 lF1kwHhjqsuvqGCdjWvkxrAu dGlj CZesSJjyK706RLMlzRrcTcNw ZGluZyBEYXRlOiAgMDQvMDcv MjAyNTwvdGQ+PSFzLCH9yHpw PSAn cKSkEYwjAr2wmVdofFztVW9d LNQusjqnQOFiiH3kTHIdjDCp gNxnJV6vICKcmgssg294AxOe MHB0 DJDluRGzW4PjvR3wRoCnHXZw LMAlS0KkiOWtGJxgC231PMhs RaJ7DRPuyiDuM3CaYQPfhCbj OiB0 v1P1Pd6Dw7XrevctU2FitHFk ElCrJtciPHu0W7EsKzjphJA+ WL41OJQqPF00YEk0ERV8gTmc PSdi IEKeM4IxqV6fPiEtSAPiKZIc Oyc+PHRhYmxlIHdpZHRoPScx EYWfXeUabNdtEC4eZg9kONZt LWNv vRvswBRjEqIzx0txDBHzYCru OI2ntNmwK8JryMF0ERPmv9f3 Gs80I62jX5QcuZX+PGNvbCB3 aWR0 aG8wCnQxNlT7UBwbZ949RzUt kYTpBnyeo9bsi3kiaCf2WmH2 OOUbuqNabHtqIAK1r6ToOs57 Y29s IHdpZHRoPSIxNSUiIHZhbGln to4loU8zBy8+VJQrgFQ2bLB4 qN9mSzKsEvQ1CEroA960VwXr cCIv Fmnzo8mvt6irwDa2HvIbCVPi yoAweGhkJDD1y4JrEi77L5Md qBitj2TmXhb0bh62cDNnh6M3 bGU9 X3PhXTCslanoaCHkrFkwDW0p EUCbghqwGJSzmH3oIJFtC8m1 LlTiKtC4ZFflZ0EdbbK0SQTw bGQg ZKSdcZVHbX3prkqwp6emrtga JmGhMRMoQIp9YWk9NGPkaQul PhRhMBA2TcW5WBF5vNPsgR0u bGln drphuA7eSwq+UGW6xAAvkCUV LH1wKnfgkSQ+PIYnWOE7iKxq IYizSLDqqZ2aGDSvW9x0PgAi LjA1 GWlmU4IjgsU5SRVwzMKsKRTo sDDBlM6tdcvon3idiseqSxKk QLBjYRi8CWd7NBVhsDeqEjDn ZWZ0 XtZ4OXV6hFVnwY6vxDvkhsqe eX7uJmq+YemkwLnqVMD6RLp1 Y4UiPcs5IUWspZuaUS6ddTDf ZGlu Lx6ikZzgxLxoMC6nWRGjheqp t645HxHkb4pgXTZmgLRfGYrl BIK5R24sw0W9VKCkPCXwZAQ6 dGV4 rK6qiCepjcsfmSBzeKkjmhNv cJykOGlaBCyhO707XSHewWqp QkRbQFr4H7OkPlo4QLOsmBaq ZT0n cCSxRFziPy6sgZrywRssSL2j GDQqqjvca516ZcPjs8fwURXf fFBvYIxoKSF7X21rt3U6XCKq MDAw UOV4uNL9oW1hgFcdswjoyPNk iBpyqiRqzQcuVMfyYYfyP118 PUZfaSqyHxFzmTk7Q7KbKwj2 ZCBz gOrvMZ0hoWYaEJexJj1vaKfn mIrlNJ8fBSUcjylrh502GuXc d0poFBWxdDCvLZroUNM6N01s b3I6 GFIqRXOcDCD4nEC1aH4vkRtn bjogbGVmdDsgdmVydGljYWwt HZocQ272LIAvdNyfOzVteBhg bnQg QIrxPMa1X5JoUkujrTZ+PC90 ZXOjGF91pRMicYJyp0bgkQp3 GdZmPNXgQPI8yHrzNCzfn8Hd ZXIt Z84fdYMbi5C6DZTwuWekfFQc YrKnnAF0jM4ySIphaoavv4yi ausyKtwhi1rxdl34zJ88H11i IHdp IHTpNBVbKPPbPXAedDxddz6a nF2yNn4+VVZxrZZ4vJL7bS8v DTWdLkP2HDlpT334UfHnyLZu Pjxj n0pbz4pwnVb4ViA4DIVwvyGn xGrgOVP3e9TsZa02E83uMMyn UBGaERUoZMNbUFSsgWcbdd1y dG9w Ii8+DCGadZF2kCF2sE8uEjGv UtR8FMkoW017RiMpkJKrXvgi E19gL1IikWQ+FLOlRxb9GAUv dHls RF3muZGhWBgzCk8xVZW2QjDu ZyZoZGroS6PiTGMtrzcwxaud hCY1VJIuKAIcuF77Qp3mtLnv MTBw fJRIaI4hxdbva0nedntvJzHt ZOGsKAr4KHa7SNJkiCgaAxOv GVN4ImE9AJL7eBUyeZ9akYqf bjog vN0rJ9PeWUEftitbZl62lP5k UmYbDzO7UTolHsw+U15MC0sA LCBBTUFOREEgREFXTjwvdGQ+ PHRk TPB1iTzbZYajGSPzqB9vGQSh O8i9DwByHhN4JUvmG0UoEZHu avtqXd85xE0kHoIvIrJ2CWbw O2Zv iaW9VWVmvPHnOTypPCY3D58z f0Y3PDJzSEJzMVH3uAX7bW7d bGlnbjogbGVmdDsgdmVydGlj YWwt KFznC608FKSddMvyKnU7HlJh SoR2WMW1X3SbWff2XNFnrZal LE0thUMkNCapZl8pkKvmeAdq MC4w BYFtopzwRRLumC4nTVXlvMIy vKttSW9rFFSxyiavm706KrMr IDS5NVUeqJLxN8FitF2rLcAt MDAw EYFgQ4WiyLFkJFlaT562THfd ZbM9IJBqvyRoF6DuIXArwFhu DzT8g4Y3Ac24GBWTUQQzetie dGQ+ LCPaOVF3yPmhUDypUXYwtZ0j EQMjB7x1CwBeRmO4ZYjuP3Gp WAKestxkEa19mX9eCrWyTnU2 MGlu T0OtdbZ8DDUwtFCxVRxiQOA1 X00vd5Z0QZFkNMDtPGT6qLZ8 eK7qyBaguduxeMHueBuwqbGc dGlj UWasESpqA111TRAjpNzoElQX TUFMRTwvdGQ+FPBpYWV3oScr JOcuJMUxxD5nBMZjW7g1TyWu LjA1 LAxnN9ZmFDSoequbSc10fD4l ElMxXfX1NZpaN0CmtsC3WTQr kJKpKCcqMEK8E36ay6M5QXLl MDAw UVX4dPJ4lX6jdChiwwukiFYe yWnklyJnrRlbOVieCSpjS488 ZGJmhWaxEhMxTHDdWH3huUac dGQ+ FL89dc72Y0PcZzpgJal3KKVd VQZ3yQZ4zX2vMBHvUSwlm3L8 sWN9M1ZwdrDkqu9qr5tmVJYi ZTog Y41cyGScj0M9EZHocOD4RHGs bNfmVxQfzB13Xar+PGNvbGdy o9KhMgapi9nvt6arlCn2TfWx JSIg ukOrsXktAHR2j7QaDr08E87t IHdpZHRoPSIzMCUiIHZhbGln sp7plX1yUp5+BBKqeKU3xKO8 aD0i NlGyHlU0JNrwI359PtVrbDCe Csoyv0jgd3fogLm3IpKtTDRc ggOoxOqqJCZ0y4QtZr67X3Po bGdy x9FkSap0ik67cIDhd4D4dVY6 I3RvJZSsifmkcGJuyVkfZN3b SOBdqdyiXBNhaQ8iJFScS8q1 OiAw XrG6ICnsO9ImfoV2NSLoyXIl FOEixYPRiM8pbbcue6siegqo ZtYoPUYeYZk7SZj6QFJueSiy OiBs INR7UwL3IAP1oMJaxE6liEkd siafnF3fIfm+HLp9o0hagKYr JK2jvOY7GX48BE06wDNzz4U7 bGU9 G6DdRRQzuwvwvuckfKK1PVQp MDIqlG01Jg5evElzPx8mZAZk UCN0AZWvrTSnS5LzlQ2xIhLh MDAw CZBjD4XmqDUrBFabU170NHfm VkY8BZUnavPoB9RwIGUtkIcw MhW4l0E0Zw1KWW42LQ88SD88 dGQg h7W4jAX0R4PmLHYnafbxepjk oPV1TQBfKQOloM35Dh5auMne Xl9sGKQhILF8FPVwsLJcX1Ji bG9y MhFcKGNtJQHkX9EonBZnJYao E768UNreTtB9BACemgMfS6Jz CWQhiKerSuW2p7D6Aa7PDv01 PC90 QV36jHXgu2X2bSJ7W0OlUPUw orfmjctzgXX4KGMeDNVflB83 Qt7ilUnjFz7bNFUwIGX3JSYg bWVz N5LesB9yFmSvMYBjWLRbC3Ql fPFsMWsmJ815AQnqTmA8HSQh vaYnJ1YfVSAhmUirQcY3t8Z4 Jz5Q OPfnraj7T1IqWjtooSQ+PC90 WGSlGR28bHKybUHdu1oidAe8 GqMkTOPwPPF8cRtzFUrpv9Fy ZXIt Y29 (more content not included)... Normal [facility] Eosinophils/100 WBC Auto (Bl d)on 07-08-2024 Eosinophils/100 WBC (Bld) Automated eosinophil % 0.9-7.0 [facility] Erythrocyte distribution wid th Auto (RBC) [Ratio]on 07-08-2024 Erythrocyte distribution width (RBC) [Ratio] Erythrocyte distribution width [Ratio] by Automated count 11.0-15.0 [facility] Estimated glomerular filtrat ion rate (GFR) non- Americanon 07-08-2024 GFR/1.73 sq M.predicted among non-blacks MDRD (S/P/Bld) [Vol rate/Area] Estimated glomerular filtration rate (GFR) non- >=60 mL/min/1.7 3m 2 [facility] Globulin Calc (S) [Mass/Vol] on 07-08-2024 Globulin (S) [Mass/Vol] Serum globulin measurement by calculation (mass/volume) [facility] Hematocrit Auto (Bld) [Volum e fraction]on 07-08-2024 Hematocrit (Bld) [Volume fraction] Hematocrit [Volume Fraction] of Blood by Automated count 36.0-48.0 [facility] Hemoglobin [Mass/volume] in Bloodon 07-08-2024 Hemoglobin (Bld) [Mass/Vol] Hemoglobin [Mass/volume] in Blood 12.0-16.0 [facility] Laboratory - Chemistry and C hemistry - challengeon 07-08-2024 Albumin [Mass/Vol] 3.6 g/dL 3.4-5.0 [facility] ALP [Catalytic activity/Vol] 92 U/L 46-116 [facility] ALT [Catalytic activity/Vol] 14 U/L 14-59 [facility] AST [Catalytic activity/Vol] 16 U/L 15-37 [facility] Bilirubin [Mass/Vol] 0.4 mg/dL 0.2-1.0 [facility] Calcium [Mass/Vol] 8.8 mg/dL 8.5-10.1 [facility] Chloride [Moles/Vol] 105 mmol/L 98-107 [facility] CO2 [Moles/Vol] 28.6 mmol/L 21.0-32.0 [facility] Creatinine [Mass/Vol] 0.89 mg/dL 0.55-1.02 [facility] GFR/1.73 sq M.predicted MDRD (S/P/Bld) [Vol rate/Area] mL/min/{1.73_m2} >=60 mL/min/1.7 3m 2 [facility] Glucose [Mass/Vol] 77 mg/dL 74-106 [facility] Potassium [Moles/Vol] 4.1 mmol/L 3.5-5.1 [facility] Protein [Mass/Vol] 6.7 g/dL 6.4-8.2 [facility] Sodium [Moles/Vol] 138 mmol/L 136-145 [facility] Urea nitrogen [Mass/Vol] 12.0 mg/dL 7.0-18.0 [facility] Urea nitrogen/Creatinine [Mass ratio] 13.5 mg/mg [facility] Laboratory - Hematology and Cell countson 07-08-2024 Immature granulocytes/100 WBC (Bld) 0.0 % 0.0-0.5 [facility] Leukocytes [#/volume] correc mini for nucleated erythrocytes in Blood by Automated counon 07-08-2024 WBC corrected for nucl RBC Auto (Bld) [#/Vol] Leukocytes [#/volume] corrected for nucleated erythrocytes in Blood by Automated coun 4.0-11.0 [facility] Lymphocytes Auto (Bld) [#/Vo l]on 07-08-2024 Lymphocytes (Bld) [#/Vol] Lymphocytes [#/volume] in Blood by Automated count 1.2-3.8 [facility] Lymphocytes/100 WBC Auto (Bl d)on 07-08-2024 Lymphocytes/100 WBC (Bld) Lymphocytes/100 leukocytes in Blood by Automated count 20.5-60.0 [facility] MCH Auto (RBC) [Entitic mass ]on 07-08-2024 MCH (RBC) [Entitic mass] MCH [Entitic mass] by Automated count 26.7-34.0 [facility] MCHC Auto (RBC) [Mass/Vol]on 07-08-2024 MCHC (RBC) [Mass/Vol] MCHC [Mass/volume] by Automated count 29.9-35.2 [facility] MCV Auto (RBC) [Entitic vol] on 07-08-2024 MCV (RBC) [Entitic vol] MCV [Entitic vol ume] by Automated count 81.0-99.0 [facility] Monocytes Auto (Bld) [#/Vol] on 07-08-2024 Monocytes (Bld) [#/Vol] Automated blood monocyte count 0.3-0.8 [facility] Monocytes/100 WBC Auto (Bld) on 07-08-2024 Monocytes/100 WBC (Bld) Automated monocyte % 1. 7-12.0 [facility] Neutrophils Auto (Bld) [#/Vo l]on 07-08-2024 Neutrophils (Bld) [#/Vol] Neutrophils [#/volume] in Blood by Automated count 1.4-6.5 [facility] Neutrophils/100 WBC Auto (Bl d)on 07-08-2024 Neutrophils/100 WBC (Bld) Automated neutrophil % 43.0-75.0 [facility] No Panel Informationon 07-08 Miscellaneous Test COMMENT . [facility] Comment on above: Test Ordered: [id number] Metanephrines, Frac., Pl. FreeNormetanephrine, Pl 84.6 pg/mL Reference Range: 0.0-218.9This test was developed and its performance characteristicsdetermined by [facility]. It has not been cleared orapproved by the Food and Drug Administration.Metanephrine, Pl <25.0 pg/mL Reference Range: 0.0-88.0This test was developed and its performance characteristicsdetermined by [facility]. It has not been cleared orapproved by the Food and Drug Administration.Performed at: [address] [id number] Director: Katelynn Macdonald MD, Phone: [phone] at: [address] [id number] Director: Theron Roblero PhD, Phone: [phone] Eosinophils # (Auto) 0.2 10 3/uL 0.0-0.7 [facility] Immature Granulocyte # (Auto) 0.00 10 3/uL 0.00-0.03 [facility] Platelet mean volume Auto (B ld) [Entitic vol]on 07-08-2024 Platelet mean volume (Bld) [Entitic vol] Platelet mean volume [Entitic volume] in Blood by Automated count Low 9.5-13.5 [facility] Platelets Auto (Bld) [#/Vol] on 07-08-2024 Platelets (Bld) [#/Vol] Platelets [#/vol ume] in Blood by Automated count 150-450 [facility] RBC Auto (Bld) [#/Vol]on RBC (Bld) [#/Vol] Erythrocytes [#/volu me] in Blood by Automated count 4.20-5.40 [facility] Serum or plasma albumin/glob ulin mass ratioon 07-08-2024 Albumin/Globulin [Mass ratio] Serum or plasma albumin/globulin mass ratio [facility] Serum or plasma anion gap de terminationon 07-08-2024 Anion gap [Moles/Vol] Serum or plasma an ion gap determination [facility] Office Visiton 07-03-2024 Follow-up visit [id number] Cameron Dumont 1980 F Date Provider Department Center 07/03/2024 RUTHIE DEVRIES [facility] Family History Problem Relation Age of Onset Heart murmur Mother No Known Problems Father Family Status - Relation Status Age at Mother Alive Father Alive Level of Service:01954 [place] OFFICE/OP CONSLTJ NEW/EST PT MOD MDM 40 MINUTES Normal [facility] CT Head or Brain w/o [...] MD 06/28/24 11:24 a Technologist: Vannesa REESE [facility] Extra Blueon 06-28-2024 Tube Collected Yes Invalid Interpretation Code [facility] Comment on above: Performed By: #### 1 [id number], [id number] ####[facility] (DEFAULT)[address] [place] [address] Cholesterol in LDL Calc [Mas s/Vol]on 04-15-2024 Cholesterol in LDL [Mass/Vol] Cholesterol in LDL [Mass/volume] in Serum or Plasma by calculation [facility] Comment on above: <100 mg/dl [id number] 0-129 mg/dl NEAR OR ABOVE [id number] mg/dl BORDERLINE [id number] mg/dl HIGH>190 mg/dl VERY HIGH Cholesterol in VLDL Calc [Ma ss/Vol]on 04-15-2024 Cholesterol in VLDL [Mass/Vol] Cholesterol in VLDL [Mass/volume] in Serum or Plasma by calculation [facility] Laboratory - Chemistry and C hemistry - challengeon 04-15-2024 Cholesterol [Mass/Vol] 174 mg/dL <=200 [facility] Cholesterol in HDL [Mass/Vol] 65 mg/dL High 40-60 [facility] Comment on above: > or =60 mg/dl - LOW CARDIOVASCULAR RISK<40 mg/dl - HIGH CARDIOVASCULAR RISK Triglyceride [Mass/Vol] 83 mg/dL <=150 [facility] Serum or plasma total choles terol/high density lipoprotein (HDL) cholesterol mass eulalio 04-15-2024 Cholesterol.total/Amber sterol in HDL [Mass ratio] Serum or plasma total cholesterol/high density lipoprotein (HDL) cholesterol mass rat [facility] Comment on above: 3.3 - 4.4 LOW RISK4. 4 - 7.1 AVERAGE RISK7.1 - 11.0 MODERATE RISK>11.0 HIGH RISK Free testosterone measuremen t by LC-MS/MSon 04-01-2024 Testosterone Free [Mass/Vol] Free testosterone measurement by LC-MS/MS 0.0-4.2 [facility] Comment on above: Performed at: [facility] [address] [address] [id number] Director: Theron Roblero PhD, Phone: [phone] at: [facility] [id number] Director: Katelynn Macdonald MD, Phone: [phone] Glucose mean value [Mass/vol ume] in Blood Estimated from glycated hemoglobinon 04-01-2024 Average glucose Estimated from glycated hemoglobin (Bld) [Mass/Vol] Glucose mean value [Mass/volume] in Blood Estimated from glycated hemoglobin [facility] - Chemistry and C hemistry - challengeon 04-01-2024 Cobalamin (Vitamin B12) [Mass/Vol] 336 pg/mL 232-1245 [facility] Comment on above: Performed at: [facility] [address] [place], [place] [id number] Director: Theron Roblero PhD, Phone: [phone] Ferritin [Mass/Vol] 11.0 ng/mL 8.0-252.0 [facility] Free T4 [Mass/Vol] 1.03 ng/dL 0.76-1.46 [facility] Glucose [Mass/Vol] 80 mg/dL 74-106 [facility] T4 [Mass/Vol] 9.30 ug/dL 4.80-13.90 [facility] TSH Qn 1.271 m[IU]/L 0.358-3.74 0 [facility] - Hematology and Cell countson 04-01-2024 HbA1c (Bld) [Mass fraction] 5.0 % 4.5-6.2 [facility] Comment on above: ADA RECOMMENDED LIMI T 4.0 - 6.0ADA THERAPEUTIC TARGET < 7.0ACTION SUGGESTED> 7.0 MLR HEMOGLOBIN A1Con 024 Glucose [Mass/Vol] 97 mg/dL [facility] HbA1c (Bld) [Mass fraction] 5 % 4.5 - 6.2 % [facility] Comment on above: ADA RECOMMENDED LIMI T 4.0 - 6.0 ADA THERAPEUTIC TARGET < 7.0 ACTION SUGGESTED > 7.0 [facility] No Panel Informationon 04-01 25-Hydroxy Vitamin D Total 22.2 ng/mL [facility] Comment on above: <20 ng/mL Vit D defi cient20-<30 ng/mL Vit D bapjwlytqcdf25-305 ng/mL Vit D sufficient>100 ng/mL Potential Toxicity C-Peptide 2.3 ng/mL 1.1-4.4 [facility] Comment on above: C-Peptide reference interval is for fasting patients. Dehydroepiandrosterone Sulfate 122.0 ug/dL 57.3-279.2 [facility] Free Cortisol, Dialysis, LCMS 0.385 ug/dL . [facility] Comment on above: These tests were dev eloped and their performancecharacteristics determined by [facility]. They have not beencleared or approved by the Food and Drug Administration.Reference Range:8 AM 0.10 - 1.204 PM 0.042 - 0.872Performed at: ES - [facility] [id number] [place], [place] [id number] Director: Kal Archibald MD, Phone: [phone] Free Triiodothyronine 2.38 pg/mL 2.18-3.98 [facility] Reverse Triiodothyronine (T3) 23.1 ng/dL 9.2-24.1 [facility] Comment on above: This test was develo ped and its performance characteristicsdetermined by [facility]. It has not been cleared orapproved by the Food and Drug Administration.Performed at: BN - [facility] [address] [id number] Director: Katelynn Macdonald MD, Phone: [phone] Sex Hormone Binding Globulin 119.0 nmol/L 24.6-122.0 [facility] Comment on above: Performed at: CB [facility] [address] [id number] Director: Theron Roblero PhD, Phone: [phone] Testosterone Level 17 ng/dL 4-50 [facility] Plasma serotonin measurement (mass/volume)on 04-01-2024 Serotonin (P) [Mass/Vol] Plasma serotonin measurement (mass/volume) 31-207 [facility] Comment on above: This test was develo ped and its performance characteristicsdetermined by [employer]. It has not been cleared orapproved by the Food and Drug Administration.Performed at: [address] [id number] Director: Katelynn Macdonald MD, Phone: [phone] Serum estrone measurementon 04-01-2024 E1 [Mass/Vol] Serum estrone measurement . [facility] Comment on above: Range Adult (Premeno pausal) 27 - 231 Menstrual Cycle (1-10 days) 19 - 149 Menstrual Cycle (11-20 days) 32 - 176 Menstrual Cycle (21-30 days) 37 - 200 Adult (Postmenopausal) 0 - 125Performed at: [address] [id number] Director: Katelynn Macdonald MD, Phone: [phone] Serum or plasma estradiol (E 2) measurement (mass/volume)on 04-01-2024 E2 [Mass/Vol] Serum or plasma estradiol (E2) measurement (mass/volume) . [facility] Comment on above: Adult Female Range F ollicular phase 12.5 - 166.0 Ovulation phase 85.8 - 498.0 Luteal phase 43.8 - 211.0 Postmenopausal <6.0 - 54.7 1st trimester 215.0 - >4300.0Roche ECLIA methodology Serum or plasma insulin mariam urement (units/volume)on 04-01-2024 Insulin Qn Serum or plasma insu stephanie measurement (units/volume) 2.6-24.9 [facility] Comment on above: Performed at: [facility] [address] [id number] Director: Theron Roblero PhD, Phone: [phone] Serum or plasma progesterone measurement (mass/volume)on 04-01-2024 Progesterone [Mass/Vol] Serum or plasma progesterone measurement (mass/volume) . [facility] Comment on above: Follicular phase 0.1 - 0.9 Luteal phase 1.8 - 23.9 Ovulation phase 0.1 - 12.0 First trimester 11.0 - 44.3 Second trimester 25.4 - 83.3 Third trimester 58.7 - 214.0 Postmenopausal 0.0 - 0.1Performed at: [employer] [id number] Director: Theron Roblero PhD, Phone: [phone] TPO Ab Qnon 04-01-2024 Thyroid Peroxidase Antibodies <9 [IU]/mL 0-34 [facility] Thyroglobulin Ab Qnon 2023 Anti-Thyroglobulin Antibody 1.0 [IU]/mL Abnormal 0.0-0.9 [facility] Comment on above: Thyroglobulin Antibo dy measured by [employer]MethodologyIt should be noted that the presence of thyroglobulinantibodies may not be pathogenic nor diagnostic, especiallyat very low levels. The assay ship pilot has found thatfour percent of individuals without evidence of thyroiddisease or autoimmunity will have positive TgAb levels upto 4 IU/mL.Performed at: [employer] [address] [id number] Director: Theron Roblero PhD, Phone: [phone] Thyroglobulin [Mass/volume] in Serum or Plasmaon 04-01-2024 Thyroglobulin [Mass/Vol] Thyroglobulin [Mass/volume] in Serum or Plasma . [facility] Comment on above: This test was develo ped and its performance characteristicsdetermined by [employer]. It has not been cleared or approvedby [...] assay quantitation limit is 2.0 ng/mL.Performed at: [facility] [address] [place], [place] [id number] Director: aKl Archibald MD, Phone: [phone] BASIC METABOLIC PANLon 01-25 Anion gap [Moles/Vol] 5 mmol/L Normal 5-15 [facility] Comment on above: Performed By: #### C VIANEY, BMP #### [facility] ([id number]) [address] [place] [address] Calcium [Mass/Vol] 8.1 mg/dL Low 8.5-10.5 [facility] Comment on above: Performed By: #### C VIANEY, BMP #### [facility] ([id number]) [address] [place] [address] Chloride [Moles/Vol] 107 mmol/L Normal 98-109 [facility] Comment on above: Performed By: #### C VIANEY, BMP #### [facility] ([id number]) [address] [place] [address] CO2 [Moles/Vol] 26 mmol/L Normal 22-32 [facility] Comment on above: Performed By: #### C VIANEY, BMP #### [facility] ([id number]) [address] [place] [address] Creatinine [Mass/Vol] 0.89 mg/dL Normal 0.40-1.00 [facility] Comment on above: Result Comment: METH OD TRACEABLE TO IDMS STANDARD Performed By: #### C VIANEY, BMP #### [facility] ([id number]) [address] [place] [address] GFR/1.73 sq M.predicted among non-blacks MDRD (S/P/Bld) [Vol rate/Area] 83 mL/min/{1.73_m2} Normal >59 [facility] Comment on above: Result Comment: Reported eGFR is based on the CKD-EPI 2020 equation that does not use a race coefficient. Performed By: #### C VIANEY, BMP #### [facility] ([id number]) [address] [place] [address] Glucose [Mass/Vol] 114 mg/dL High 65-99 [facility] Comment on above: Performed By: #### C VIANEY, BMP #### [facility] ([id number]) [address] [place] [address] Potassium [Moles/Vol] 4.1 mmol/L Normal 3.5-5.0 [facility] Comment on above: Performed By: #### C BC, BMP #### [facility] ([id number]) [address] [place] [address] Sodium [Moles/Vol] 138 mmol/L Normal 134-146 [facility] Comment on above: Performed By: #### C BC, BMP #### [facility] ([id number]) [facility] [place] [address] Urea nitrogen [Mass/Vol] 15 mg/dL Normal 5-23 [facility] Comment on above: Performed By: #### C BC, BMP #### [facility] ([id number]) [address] [place] [address] COMPLETE BLOOD COUNTon 01-25 Erythrocyte distribution width (RBC) [Ratio] 14.5 % Normal 11.5-15.0 [facility] Comment on above: Performed By: #### C BC, BMP #### [facility] ([id number]) [address] [place] [address] Hematocrit (Bld) [Volume fraction] 30.0 % Low 35-47 [facility] Comment on above: Performed By: #### C BC, BMP #### [facility] ([id number]) [address] [place] [address] Hemoglobin (Bld) [Mass/Vol] 9.9 g/dL Low 11.7-15.5 [facility] Comment on above: Performed By: #### C BC, BMP #### [facility] ([id number]) [address] [place] [address] MCH (RBC) [Entitic mass] 27.8 pg Normal 27-34 [facility] Comment on above: Performed By: #### C BC, BMP #### [facility] ([id number]) [address] [facility] [place] [address] MCHC (RBC) [Mass/Vol] 33.2 g/dL Normal 32-36 [facility] Comment on above: Performed By: #### C VIANEY, BMP #### [facility] ([id number]) [address] [facility] [place] [address] MCV (RBC) [Entitic vol] 84 fL Normal 80-100 [facility] Comment on above: Performed By: #### C VIANEY, BMP #### [facility] ([id number]) [address] [facility] [place] [address] Platelet mean volume (Bld) [Entitic vol] 7.7 fL Normal 7-12 [facility] Comment on above: Performed By: #### C VIANEY, BMP #### [facility] ([id number]) [address] [place] [address] Platelets (Bld) [#/Vol] 267 10*3/uL Normal 150-450 [facility] Comment on above: Performed By: #### C VIANEY, BMP #### [facility] ([id number]) [address] [facility] [place] [address] RBC COUNT 3.58 X10E12/L Low 3.80-5.20 [facility] Comment on above: Performed By: #### C VIANEY, BMP #### [facility] ([id number]) [address] [place] [address] WBC (Bld) [#/Vol] 15.6 10*3/uL High 4.0-11.0 [facility] Comment on above: Performed By: #### C VIANEY, BMP #### [facility] ([id number]) [address] [facility] [place] [address] Coding Summary 01-26-2024 Coding Summary HTMLBase 64 RwnyiznpJOw9eDc+PGhlYWQ+ VS2SZVObS79aaIEsfW9eX2RA TElOSywgQVBQTElOSyIgbmFt GB1lrHVeUMSm IC8+RV2sHDGaZtrmrZWki9P8 cDN8K63ldi3nCBwbhWN8QUWk IzBlkywvg8ofoId5ECxxJyqh OyBt ELWaiJ35SAE4aS37Nl75aKKg lBByx5cxsBl5NrLeBTPyTDD8 tRnoWXpjh7MdFKJeB25zsGBm c2U6 NZMzjHwbhUNeEyPrnRC4fA9k CUqotprfo7bwbbkbHtc6fo57 qXIbp5X0iIC5N2AdsnA8KTAz bGQg UhfwgWHNvG6lmgrdd1dznyfr IeVnMIUkRFx5HQf7SPNfuClu TeWaKZ45XDF5UOJkygNuE6Sq LWFs eFftQzM0u2F2Is8LI6XKUudy E2LKRJZXVUkwmKS+GF04mg98 Y6YaTtrvMsv6JNKkCAD9hEH2 aD0n IWFcOYzeq0M3wTV1J7QtcuVd oo5zt6xoLEZjOTqfV42wqCHb b6D4BLMizOC0OJQumFqzApEp aG93 Oyc+DTFpnYlha8UnBbjuy7nh g4ilgFe4NmduLGVveyKebTyi JJW8g8ZkWy1xCHYnuDM9xRG9 aD0i CxJkCpL0PLxkX984NrWxeLNk CrkgN40dH7SwbAF+PHRyPjx0 KDGaoIrpTG9sH0TlUYKykncg bGVm yBkrQI0cRRNibagoLTBpbH5m LJHvY9a2MyCzBbC6JOnwZ8Ec XHJohwwyUo04lD9xHeZoOsY7 MGlu X2WrihL4RRFoqGDeJPcgJLQ3 R66nv6W1CAQgHLQyVXG5wHC0 hL4bdQxifjpcuJYhhFzszsLx dGlj UXndNFbrY352RTEpzVawQpDy ZGluZyBEYXRlOiAgMTAvMjUv MjAyNDwvdGQ+LORlZZJ8gIse PSAn kWKcSLhrNe6vsEujbSpuCJ9m EZScjmroUUXjyF5zZSXpwUUa cBzmRT7vVGUrwxcce789EvEi MHB0 JWGwsIXbW3DyiQ7gUkWxSWGw YZYbK7VilDApONtzQ781EYew JhZ8UWShxbFtU2XsAALizGuo OiB0 t0X9Fr2Cy8HsalsiJ9PepBFt AmJfLlelMTw7O5CxBgnhmXR+ BB33QJDaFT01TEb4YMB8bKkb PSdi GFAlZ4TfxZ8hUdMhVSVmGGEh Oyc+PHRhYmxlIHdpZHRoPScx KSHoSgBiiXnyXO0gUz8eLLAp LWNv qUufyWVpDfNiz2unLDAfEGdw TP3buZzwN0WnhIR4SFVsl6j7 Jj77H99vG9VytWU+PGNvbCB3 aWR0 yU3fQcIcTfW5IGymD797MsKt eUAyIqcpr3zfz2dgnJm1LlL6 YUPqmtDblFawDAF3d3PrWa47 Y29s IHdpZHRoPSIxNSUiIHZhbGln mz7ieX1jKf1+KSVdyXM2fST7 tH7yEmNqWgB4IAwsN796UwUm cCIv Wpclu8lwj3rkpWm1WhMbDOVq eyBfcHquUBP2v8HiTc18W1Gh kLhtr5XfJcw0sg49kYLza3S9 bGU9 K2GgJCElleusmTUbaQjzAJ5z BHHcsmqmOBQxlX5kZFEeX5p8 PiDcDqW3STjoI4HmbgC4NSGc bGQg OLArgPVHdE9hdjyzm4pqwrbn VxNaAMIjYDn0MRf3KZLbbQqd AtQuIYS8UeQ8VMR8kHYlkK2n bGln lnuupU3yIoa+YPZ9jYGowLEK SX9xGakvnIS+KEWpEAN7aWlv YPbzGLVewJ3gBYCbP3o2VpHo LjA1 GZcvO4CqsxG7OYGcbXNbFSFn mDYSkX4ddudbi3vyhrgpSjYb JPYaESf7HTe6SFSxyQfxUrTg ZWZ0 CsS9YVY8oERleY9zsQnwnntj kZ3hOmq+UcqljDigYKX1OOq1 U8XxTgt5PZPnrOihAM9wuVLp ZGlu Ug5zfGsdgJosJS4lHSOmfnez h116XcXja9mbULUdmBSlDJqd YRW9V14eo7X0DMEeQCKnJYM0 dGV4 tK0lmClaptsewAWnbZbdlrJd hBakIPrkFNnzO908HSEkaTmi OkWyGTq8F7CcRhm1MHEeiKyg ZT0n yRDpAQrvJy0tnUjegJniQX2j VUBytnyny708XcGjp1edQGZy aNUoSSuyRJS7Z03cy4S7EJSc MDAw QOO3wHB8uH6fxFjhwmzquKGx hIiwnsYcdOfrGWfcZNjmL004 QTHqyPseOwKldEd7X7XdOsb4 ZCBz kYqnLV3udGCfTWnxPw9uoKmn yDyhRO1oXREqxfaug694PpFu m1idCCItdXCkZUkeRLI5H79o b3I6 IQNqKEHkWCG5mHR5wF4wgCdr bjogbGVmdDsgdmVydGljYWwt GNuoN382BRLwyDqvYsIsjFen bnQg MDchQIc7G3PvHlgboUI+PC90 WKMgSP14fCVriQVvh8gabOi2 JhCnSPMaGEH4vViyDRwxi9Et ZXIt F61nuSHrf6F1HATdeFytqAQq BpSorCJ1rB1eWMmhgtpiy4yq khiqSlwhy7jcxn76gW80Z65a IHdp ENTiTBCxGFTiTGUzaTyruu8n pP3xBn4+OVOhqRZ7mFC6mD6r CSJpDxP0OVzfV092CcIvgMRw Pjxj b0iur0myxRv6CbK1JBQaumRj rFpyLZI6h0TxPi06Y45uGWii FPCdKDAtKFTtMOTzeUewyo1j dG9w Ii8+TZWumFK2nYZ6rX6eKdKk KrZ6CEghF701RgNteWGvDnll G65nI1QmmLX+TNYfRga4PARf dHls PV6ioTLjQWrjRg2cEME7HzRc SvOtCWqfG7FtFTOrhkvrjmdo jCB5PMGsQDZbxT56En2nmAky MTBw mDQEeY7zxwinc9iqqeckPpKk UESmUTu7SDs8HOUyqVjlTrXr QEH4PpE6YLQ1cHZfbS0odRtr bjog fT0vJ3GwOTRgtiepSp67fI8b OcQkHlV9GRmzVxx+X28XN6dQ LCBBTUFOREEgREFXTjwvdGQ+ PHRk TYA2fMprBUysLQZqwA6xPWUa O0b9BxGrGtD6BJmmY8UuAHLw egcpXb89nI2kQuWcXnL4LZca O2Zv hpJ8ZHYwaALaCEcgUUD7J97e o1Q5IPAhAZPiWGU1iKB7hX3o bGlnbjogbGVmdDsgdmVydGlj YWwt UWwsH272QXAbpUfdEtI2UaUo UjF6LOU9W1VvIjr3DOEhqHij XR1xlCHbJLtgNi2kjFutaGan MC4w PKRzxuwiBANooK3rMSIicMFa wTpiBG0iCCRbkvhpm263ZkFm IHB9DNHjsRRvW8WcrI0qCdYv MDAw UZLrC2IknYNnGUsxI946VJyi JqT4LRTynhIgJ9QiWDIgfFqg AwT5w1X0Fp88YYPGAEZyofvq dGQ+ VRMzMLA3mBjrJWjvKHZcpV5w HRJcX4w0DhOiOxS4BRxvB4Ie GHJtytbbKg28aI6yCxWcGvE2 MGlu I6RmxzY8EMJyzRImLFdeFEX4 F76so8I0KDMpUANtUOD2lQQ2 yV4drFmzqbtmvXRowCjkdkSm dGlj RLnxKVjoI664BGXfmYmdZpVX TUFMRTwvdGQ+UCFkHEK1dAmd KFypRYUjlD4wPUKxR5l5CdQf LjA1 XYbwE6TeATOotaouEu75dH2j YcOxGpA2BMlsY8ZdrtL4VKZf pKXqLNhgJDF4V17mg6F6TBWr MDAw QOW7cYD4lI0rkHihvjtfrIUl oAxnlpJnyJneEZzkYPjsH424 CUZknVzmVsDsEOPbII7wdSlc dGQ+ CC86of55X5VyKazfFwx4KQAl LNB0kLE0wY0hXRNpXEvgt2H0 cSG3V9XdrsWwto1jz5ffAJVe ZTog S32bwROgo6Z0CKJezDC1VMSo zKzlKlOmqK46Xrm+PGNvbGdy n5XgIjdpn4hue0mgsKg3PvVh JSIg pgMomJboCKP7i9LoEk26T14j IHdpZHRoPSIzMCUiIHZhbGln iy7inJ5yJv2+YEEhzRL3jAW2 aD0i OaUlXfL7UKqpP080DfLkoQSd Zaqkf0kqn2jyiJh7UpSgKAXz zvVelHcaOYF1n3WzBo78I8Zg bGdy z4VxLch5eh93dKRcm0S8fVI7 K3UaAYYfmpwffQFrhDcvOL9y NZZilbwyBOEbxV4kQXUgI2w8 OiAw XvW4YGnzS9IuglV7GIYnlZFg YUBxfKXAuT1gufqag2dsackc JnEwHQMuPEn3RIj5BSGzoVkx OiBs OJL1BrA7XCA0uZVpnK5sqGmg bgvbdF5iIma+GYw9o0weyDRr BT3jtQU3KA62IZ58hLTkf8C1 bGU9 J4TgKNClhotkmfrzkKG3QFQv GVSfhT42Up8dmJhgCq3uFCHm YXO2XJHozCXvB3EolQ7xTjIw MDAw RGLsS1QmdHZxZXmkM221XRwf RzP0HEYhebAmG8MkLXVwjHpz AiX1u5H3Xs3QDV57KY35MU63 dGQg e0H0kPA6W8QuJEApxaxftnnw lVI3VMHwXLHawF20Vz2txFpx Zl6wIDGtNDA1XOTepXFrH3Lo bG9y MdHfGELlWAThF6VhbWXdZEuz F240NDxjZjI1NMXolvTrA7Bc DFHusJckBmN9w0V7Vd9GFb31 PC90 MU57mAEbx8V0gZA7J7OfBDPq uqqhdscekNF4THLmLTRbqA48 Df4ebTwoMu6pGRNwHWZ5NDHo bWVz O4FujC3dKjPsYGQeBKCqX0Xb rAKtMXsmD974BCovYjT5QTCw lbAqR0WbIRXhkFgrSuO9a7N8 Jz5Q ZGcnbtz4N2AuHrrloLU+PC90 TVXuYQ63sCVmcJUyk0oyiFj9 ZsBtAAEuGXW7kBqyIEwbu0Zi ZXIt Y29 (more content not included)... [facility] Coding Summary [employer] 64 JdnkuvzsXJl9wBp+PGhlYWQ+ RJ7BRVJrI40grRTqyQ3oQ2FP TElOSywgQVBQTElOSyIgbmFt IL3ueTCvUBNb IC8+GQ8aWBRiZurpqNDbt6Z4 qKK3R03nzv5uWGnsnKH9ZLOb VdXjkihyp6xxcUg0AXifZjro OyBt FWSgoG30FYV2wZ24Iw27jWOn wHQvg8anwRw1TuGpLJHuWWE8 rBzzMXduz0ZkQZFsQ85bsXRb c2U6 GCJqmPgkfHVtOyGtlNQ0iB7o HYsoquydy9hvuellSmp8vs94 kVFrk2P6oEI3O4QwhhV3RFTh bGQg MsrmlSAGkA8jjlzzz4lkufik NfNjBIMvAWv3GXk1DGUwqCge QyFfFC97BUY2IWQqllTuO1Uz LWFs jApoYcF3c1W5Zx7IF9ZNMwyk P8PXZMSXIIyrpJG+ON75ma03 T0XwNthkRxg9NVVqSBU5yKG1 aD0n NQAdTDckr8Z9pUN0V9MeopWu vz3ae9aoTVMkWShrA72xoIDn r2G6RIYzsRV0JSFifFpfYfOw aG93 Oyc+KKYjoCqle9VmKdajz3qv b0hofCa9IfaaAHPrjvDypSdk EIM2w7DlDl3dFGFzsCN2zJO5 aD0i RjTuNmD0LTafW972UtVsiQYs ByccE06sB3GtaAW+PHRyPjx0 VWOelBmhRP7eI6GcRDYpeasa bGVm oJhgKV0zGKJdhwkkNHQggZ5h FGZeS6a9UkAbAcI9MXabA4Vj MLCbfmrhVo28jN5jFgSyBqS9 MGlu A0QnvtB5GIVddRDhQUuzCTW8 Y23jm0O9NAZxYJVmJWW0bWO7 vX5nkCfndjnqkVWmyZrqrzVg dGlj TObmRXbeL999XPDwnNdcZfTs ZGluZyBEYXRlOiAgMTAvMjUv MjAyNDwvdGQ+RITqVMG0lYjg PSAn zQMuYIqtYj7mgLrkuYwoWR4z LFKlejiiXJDbfA4gKKLmnKMj zZywGJ8dPYGjquinx854JxCm MHB0 ZZQqzGNjA6JciM1eRrWxGZDe FUBbQ8UwlPGcIKsaO185AAas LzM6QLNdvmEsI5JqKBZgbYay OiB0 p9T2Dk0Dm7EiixurS4UcgMQa MxJpWdnzAPv5H0KiNupagJM+ RL48AQBgKV68MIv2PVO3hLad PSdi VLAwR1PgvG3sRvZpCNXyUORw Oyc+PHRhYmxlIHdpZHRoPScx XRKjFuChdJohDY4yFs7zXZAf LWNv eVijvJTqPiMnl7fpGBScIIcf WL2snYnnT4XmnCA3GCKsj2k4 Jd67B86zG9DilLJ+PGNvbCB3 aWR0 mB6sJgUzZgY4ULekO082VaYt tLGpXafxb5koj6xkzXj6YaX1 FEQyuzWoyAukGIT4u8QuSe60 Y29s IHdpZHRoPSIxNSUiIHZhbGln dr0suR6eCc2+JFTkjFS8cWJ5 eD3rGqQiFlB1UKfmA684LlYu cCIv Qdjze1elm1xceTj0WjZeYMEm uaSofDbwIUZ0i7KxSv25V5Ck oPznf1WfLua3ha22tUFet6D7 bGU9 L3IbASVmbeqhtQPayDrgRP9n SAZgwfmqBWObtY1hZIEiE2w8 PdHjQbV9TUcuV1ZbifE2QTMa bGQg DXDucTQNhW6vwbrpi8dhhsgx VpQgCWHdQLa8CIx3ZLTfrFol FkGtLUR0WeT4AYP2oBFcbX2j bGln dfwcwW8aSfl+FFN3sHHdxNOM YP9cZzwpcKC+NDWrNKA4eFux KCytMBQqlQ1qDRVnU4e0MrIi LjA1 EQliP9AmffB7LHMcpNSaXXBj tQWKoM1vggiqx6ujtjccYrGb KWDjVXn5HOx6ELWjaFrsMaFw ZWZ0 EoX4NES2bASctP0agRdpziln oT3jAal+WxodsHdwWTI3NFv4 J1EpReu9PYQzaKiuTS4ulOFs ZGlu Cz6jpUkygTtsYS1bSQRtkdae h192GpUvo4rjREKodVSvFAje IAK1P53dp2J6KEEgSHTfLNK2 dGV4 yN7okSscfopdnQRylGhlkrAs sWjgPQftKLcdR146AJImrGjx BpFaEOk8V2NwIte8ELKluEkn ZT0n yJPzYGicBt0mlPzssYvzFH9h CFVzfwyst275YvMcb4jsJHQk oJGwGPkyBAR6K51de2S8WNOe MDAw PMB7tQP2xA9miSgnhvsseKQj gFzbtmXsgGvwFPynSFemR711 DVYnsGkiFjExdSg6S2JdLsu9 ZCBz bDggUY6jjXAiQKhfUt1liKyi xOwoCP4zDNPcjocqg812NlSk p4jnVCVhdVXdASooXGF3M82m b3I6 XYYhKVWxFKR5rFC8rJ9keNrk bjogbGVmdDsgdmVydGljYWwt JOlcM144DULtsHkoRxIxiQht bnQg IWynGGn3M5RhMfcqcHB+PC90 VEZbUQ02wYTygXRjo0zmnUc2 ErAyLCFzKWE4dPrqYDacc5Ln ZXIt R95uoCFyp9D3QTCtwZhefLUr ZrUqpHY1zK6wMPajtblch7sm ptvdJjtak9dcca89fK41V02e IHdp KFKwEWFfDEBzIDIggIidua0b lR5bMw5+PMCqjSK7iZQ8fS4u JDDeNdW1EHmfR458UhYxfKJv Pjxj z9eqr6nztMa6BjK1TYBmgrNa tItdQVJ4t0CwHb25V08xWPcg HBLjTQVuBZItVBYuoBydhz3y dG9w Ii8+ZYMkmSD0rRY5kK1oYhSk LiF3WYovN308NbVikUDxNdui T86yT6PksCI+HJQaUfk0MXYv dHls LA6bbVCqJUhzCk0cNKG6RsZc QoPqWDaeI0HiHFVhunwaaqvd yEB6VBSpRXFkeC69Dy0vrXic MTBw fXRQnM4bxgrei9lbcfuyGnCd XEDmDEx3CVn3WAPefTwkHtPc FBD4GlC1BVV2xXAzsV9mxTig bjog zO8eY4DeFQUlvoupJc23wR1p TaPaYwV2AKtsNtc+A95YJ3zM LCBBTUFOREEgREFXTjwvdGQ+ PHRk RVQ2eGohCPbiNQVgfH3bDGRa F7j1AaQcDzH8NMbeL3BbXEGq ipesBn26hP1jWjJiGjS3RLba O2Zv fiC6FQLccJSyBRxtXYC2N02y h4C8UATqIVYtIXM4zOJ3mV0n bGlnbjogbGVmdDsgdmVydGlj YWwt WHwgB793XCJrhBkvYmT6CeDh KiO9WOT8A4NnSsb1ZSFkpBxy QX2cfUKiCEyrCv5ncDasyNiy MC4w GRUscwiaPDZraE1aJETecQGm wFffFL6zIJPmoysip097KrHx GTP0CIAbrRFbH2UjaS3jTcNu MDAw DLCcP9VyiQUlTFmxY479HEev AaX5WZEhuoQyM1XjMNVuuAiw CeT3x6J2Fy50SVHYEXJqzqft dGQ+ PPDtCUP0rXizJKwtQQPamU8f VSLcQ4b3NjCrFbA4YJuuV1Zb GJLeuiykCm60iJ4sJzFxKaI4 MGlu P6TgopU6LKXglJFlXFgoUGY8 N33ue2X4TNHtCQJtQWY3eHI1 tC0fjBikckmxbEEumZzaozWu dGlj JJwvLGpwT038TDKkzFkeZdMU TUFMRTwvdGQ+ZVIvIUH3cMhh NDjeWFJddK6vBABvX6u7YyUt LjA1 SHwuU9UgJPFdktmsTa90pG6s DgTnZsX8CSdbA0VhneK2UQIy pGElFOmdGSM9N42hs3C1FZXp MDAw PHX3qYM3cR4cjWmnqbwfqATy mMyptoUdhYumGDbbUFtkJ088 KDKqzOooOeArISAgCJ2lsZje dGQ+ ZO19wy32W8WqZkxgCup5CWJd JNE8lVO6nX2hLSLxHGkwx9V7 vVY6H5BocwCtvl8rh2uwYXLj ZTog U06kfPUhk2O2SIBweAY7FMDf jEiyXmVrqD21Mph+PGNvbGdy g2YlVakrm6aft9dqiYd3NnOc JSIg duMntQhbMFB6d7PsAc48S33t IHdpZHRoPSIzMCUiIHZhbGln lw6iqW3oLd4+QKMjyWS7sFX4 aD0i HmYwBhL1KMjtZ831DiCiiCNu Nblhc4aiw6itdSu9ZuLoRLZj ldTjeSfsOZV1k3OcEt86V1Yj bGdy d5FzQyj6rk04vLDmm0T6uEJ4 V1UbSXDlvphqfWRteDwcQP1g XZVownlkTMRicV3qKALvW1e4 OiAw LxC7SReqK8OmfmF8YAAphHQi XPIkkIRLlN9nruocv3ggjkam OzXxPKWpXYv7WGl7TIGtzJyt OiBs TYP7XhH4GAV1wOIdoE7evIif fzyxmP4zHra+IHc6p6lqyPNv QW9vgXP6NJ86OT78nMOfr5M1 bGU9 Q4XhYZRdgcbarhawqUI7RBSa UNYipG74Mi9vyCtnUg1eENTr PDU8YCBbtIAlE3KvnZ4dPlXm MDAw KJQkJ7ZcqZHnWJbrO757VIxq AcT2CUAmedZhA3ZcMTWsvOzi PbZ4c6U9Qx5JDU43YS29LE63 dGQg v6N5fYQ2C4JjJCRsoyybmqfq fVF9DETzZKIhpB89Ww5lfSue Rz5mWTUzQXZ9ZGKgqECvC1Om bG9y QgIwDPPxPHFiN5IeaKQiWJen L267WGobAmD4CGVgytHrM1Ge WMNsaFghNxX3l2Z2Rq4QQe82 PC90 JP35uIYzl4V0cPA4V3EyUHWq pffrqdqpgMS8FRUzUOYzoB48 Rj7qqZwnRh1uMXDaDOB0LACm bWVz Z2HktF4iLaQsJLOnSBIgS9Xs eRBoOVneS909FQsxRuH7JZYa tzScJ9TrKVIhqMnkMrG5r4T6 Jz5Q YUwgmew6R1AePrhjhWY+PC90 XAGaRI41vEYpmCZzf7bclBp0 NhZpPMHuEPE0yDwaWIctm5Er ZXIt Y29 (more content not included)... Normal [facility] Consent Formson 01-15-2024 Consent Forms [id number]#1.00OTG TIFF Normal [facility] .Auto Diff 1on 01-14-2024 Auto [place] % 6 % Normal 04-14 [facility] Comment on above: Performed By: #### 1 [id number], [id number], [id number], 7710704, [id number], [id number] ####[facility] (DEFAULT)[address] [place] [address] Baso Abs# 0.0 x10 Normal 0.0-0.2 [facility] Comment on above: Performed By: #### 1 [id number], [id number], [id number], [id number], 1146285, 11248982, [id number] ####[facility] (DEFAULT)[address] [place] [address] Basophils/100 WBC (Bld) 0.7 % Normal 0.2-2.0 [facility] Comment on above: Performed By: #### 1 [id number], [id number], [id number], [id number], [id number], 83548607, [id number] ####[facility] (DEFAULT)[address] [place] [address] Eos Abs# 0.1 x10 Normal 0.0-0.4 [facility] Comment on above: Performed By: #### 1 [id number], [id number], [id number], [id number], 5211696, 79002498, [id number] ####[facility] (DEFAULT)[address] [place] [address] Eosinophils/100 WBC (Bld) 1.3 % Normal 0.9-4.0 [facility] Comment on above: Performed By: #### 1 [id number], [id number], [id number], [id number], 9604843, 42003449, [id number] ####[facility] (DEFAULT)[address] [place] [address] Lymph Abs# 1.6 x10 Normal 1.3-2.9 [facility] Comment on above: Performed By: #### 1 [id number], [id number], [id number], [id number], 0284738, 24792322, [id number] ####[facility] (DEFAULT)[address] [place] [address] 40801 Lymphocytes/100 WBC (Bld) 25 % Normal 14-48 [facility] Comment on above: Performed By: #### 1 [id number], [id number], [id number], [id number], 3715882, 08478622, [id number] ####[facility] (DEFAULT)[address] [place] [address] [place] Abs# 0.4 x10 Normal 0.0-0.8 [facility] Comment on above: Performed By: #### 1 [id number], 7759334, [id number], [id number], 6772226, 83495989, [id number] ####[facility] (DEFAULT)[address] [place] [address] 24604 Neut Abs# 4.2 x10 Normal 1.5-9.2 [facility] Comment on above: Performed By: #### 1 [id number], 7849618, [id number], [id number], 2039708, 38288694, [id number] ####[facility] (DEFAULT)[address] [place] [address]9623 Neutrophils/100 WBC (Bld) 67 % Normal 44-88 [facility] Comment on above: Performed By: #### 1 [id number], 7282606, [id number], [id number], 7781355, 76831245, [id number] ####[facility] (DEFAULT)[address] [place] [address] Basophils Auto (Bld) [#/Vol] on 01-14-2024 Basophils (Bld) [#/Vol] Automated basophil count 0.0-0.2 [facility] Basophils/100 WBC Auto (Bld) on 01-14-2024 Basophils/100 WBC (Bld) Automated basophil % 0. 2-2.0 [facility] CBC w/ Auto Diffon Erythrocyte distribution width (RBC) [Ratio] 14.5 % Normal 11.5-15.0 [facility] [facility] Comment on above: Performed By: #### 1 [id number], 2265189, 4687476126, 8287564971, 1865227, 82999987, [id number] ####[facility] (DEFAULT)[address] [place] [address] Hematocrit (Bld) [Volume fraction] 37.9 % Normal 33.7-40.4 [facility] Comment on above: Performed By: #### 1 [id number], 1351301, 9978713886, 6730915037, 9386713, 11639447, 4307238449 ####[facility] (DEFAULT)[address] [place] [address] 09233 Hemoglobin (Bld) [Mass/Vol] 12.3 g/dL Normal 11.3-15.9 [facility] Comment on above: Performed By: #### 1 393647496, 2350167, 5883777513, 3780526026, 4527997, 33297066, 7301374301 ####[facility] (DEFAULT)[address] [place] [address] Man Diff? Auto Invalid Interpretation Code [facility] Comment on above: Performed By: #### 1 [id number], 3973666, 5596233840, 0743110060, 5302626, 56412635, 9960597406 ####[facility] (DEFAULT)[address] [place] [address] 39173 MCH (RBC) [Entitic mass] 27 pg Normal 24-34 [facility] Comment on above: Performed By: #### 1 [id number], 7983078, 7189261194, 7709127661, 3430051, 51137614, 4184974930 ####[facility] (DEFAULT)[address] [place] [address] 89017 MCHC (RBC) [Mass/Vol] 33 g/dL Normal 26-37 [facility] Comment on above: Performed By: #### 1 230941216, 5310095, 0158410133, 4155647911, 6425630, 88420618, 5761086978 ####[facility] (DEFAULT)[address] [place] [address] 63467 MCV (RBC) [Entitic vol] 84 fL Normal 81-100 [facility] Comment on above: Performed By: #### 1 [id number], 7555424, 3123647579, 1769004998, 1931665, 51182365, 2860396021 ####[facility] (DEFAULT)[address] [place] [address] 46382 Platelet 270 x10 Normal 138-427 [facility] Comment on above: Performed By: #### 1 383380316, 8729838, 5373749498, 4785276888, 5879088, 19481330, 3616229996 ####[facility] (DEFAULT)[address] [place] [address] 80477 Platelet mean volume (Bld) [Entitic vol] 7.4 fL Normal 6.3-10.2 [facility] Comment on above: Performed By: #### 1 [id number], 1807922, 7581263028, 2364850980, 8531707, 68183374, 5389466096 ####[facility] (DEFAULT)[address] [place] [address] 87531 RBC 4.53 x10 Normal 3.70-5.30 [facility] Comment on above: Performed By: #### 1 578555070, 3979055, 7211333947, 9155702610, 7466741, 20875679, 6395355148 ####[facility] (DEFAULT)[address] [place] [address] WBC 6.3 x10 Normal 3.5-10.5 [facility] Comment on above: Performed By: #### 1 655323266, 8101310, 3630210067, 2078715709, 6257648, 44346039, 0268990190 ####[facility] (DEFAULT)[address] [place] [address] CMP Standardon 01-14-2024 Breakpoint Chem Normal [facility] Comment on above: Performed By: #### 1 815648742, 1400221, 8097609078, 0956624640, 7594427, 72512303, 8079426041 ####[facility] (DEFAULT)[address] [place] [address] eGFR Non AA >60 Invalid Interpretation Code [facility] Comment on above: Performed By: #### 1 [id number], 7573259, 0845624894, 4347686151, 5541682, 73528288, 8459909732 ####[facility] (DEFAULT)[address] [place] [address] eGFR AA >60 Invalid Interpretation Code [facility] Comment on above: Performed By: #### 1 432007955, 1110988, 1948572605, 1363863313, 2107315, 61651772, 1856513448 ####[facility] (DEFAULT)[address] [place] [address] 02486 Albumin [Mass/Vol] 3.6 g/dL Normal 3.5-5.0 [facility] Comment on above: Performed By: #### 1 022308051, 9571213, 1162247771, 8890339628, 1596648, 80129042, 0999484111 ####[facility] (DEFAULT)[address] [place] [address] Albumin/Globulin [Mass ratio] 1.2 {ratio} Low 1.4-2.6 [facility] Comment on above: Performed By: #### 1 997448825, 6131105, 1367904483, 7777782440, 2369898, 59804125, 6994191047 ####[facility] (DEFAULT)[address] [place] [address] Alk Phos 73 IU/L Normal 32-91 [facility] Comment on above: Performed By: #### 1 213419132, 0262449, 7807826421, 6891693134, 9945344, 05575631, 0136867855 ####[facility] (DEFAULT)[address] [place] [address] ALT [Catalytic activity/Vol] 16.0 U/L Normal 14.0-54.0 [facility] Comment on above: Performed By: #### 1 711404446, 7742608, 5397680780, 1552633197, 9892699, 51131603, 5643857930 ####[facility] (DEFAULT)[address] [place] [address] Anion gap [Moles/Vol] 6.9 mmol/L Normal 5.0-19.0 [facility] Comment on above: Performed By: #### 1 358353554, 5411304, 8206802794, 8280930049, 5538518, 33734079, 5799995158 ####[facility] (DEFAULT)[address] [place] [address] AST [Catalytic activity/Vol] 19 U/L Normal 15-41 [facility] Comment on above: Performed By: #### 1 951447376, 5049829, 7397946677, 7517057987, 2857548, 52399568, 5264347713 ####[facility] (DEFAULT)[address] [place] [address] Bili Total 0.2 mg/dL Low 0.3-1.2 [facility] Comment on above: Performed By: #### 1 377236699, 0006477, 8455005391, 0213165122, 2741601, 03837161, 7741459301 ####[facility] (DEFAULT)[address] [place] [address] 20881 Calcium [Mass/Vol] 8.4 mg/dL Low 8.9-10.3 [facility] Comment on above: Performed By: #### 1 828515480, 2005037, 3722407894, 4306789818, 3275898, 64113359, 2521963032 ####[facility] (DEFAULT)[address] [place] [address] 42891 Chloride [Moles/Vol] 108 mmol/L Normal 101-111 [facility] Comment on above: Performed By: #### 1 495301105, 9345460, 9315612420, 6987632590, 5689372, 34486522, 2477852573 ####[facility] (DEFAULT)[address] [place] [address] 91302 CO2 [Moles/Vol] 24 mmol/L Normal 21-32 [facility] Comment on above: Performed By: #### 1 126908616, 5018560, 8329043174, 6328763620, 0619493, 53785984, 0205619832 ####[facility] (DEFAULT)[address] [place] [address] 83002 Creatinine [Mass/Vol] 0.78 mg/dL Normal 0.60-1.30 [facility] Comment on above: Performed By: #### 1 862037982, 2604968, 9555889018, 0833031010, 9293753, 45054576, 2520532642 ####[facility] (DEFAULT)[address] [place] [address] 08464 Globulin (S) [Mass/Vol] 2.9 g/dL Normal 1.5-4.3 [facility] Comment on above: Performed By: #### 1 107884667, 4159576, 9837009149, 3664916162, 7182156, 61769434, 9422761452 ####[facility] (DEFAULT)[address] [place] [address] 65743 Glucose [Mass/Vol] 88.0 mg/dL Normal 74.0-118.0 [facility] Comment on above: Performed By: #### 1 622676911, 4506008, 6751040108, 5562838016, 9747454, 40790441, 5553649184 ####[facility] (DEFAULT)[address] [place] [address] 96265 Osmolality 270 mOsm/L Invalid Interpretation Code [facility] Comment on above: Performed By: #### 1 357773533, 1839276, 0871196384, 8532419544, 2250859, 34768806, 8214350390 ####[facility] (DEFAULT)[address] [place] [address] 13024 Potassium [Moles/Vol] 3.9 mmol/L Normal 3.6-5.1 [facility] Comment on above: Performed By: #### 1 463156950, 2444827, 6984242635, 4694850401, 1381506, 78291089, 9668598981 ####[facility] (DEFAULT)[address] [place] [address] 24624 Protein [Mass/Vol] 6.5 g/dL Normal 6.5-8.1 [facility] Comment on above: Performed By: #### 1 590625257, 0227468, 0711338427, 7216248079, 5613569, 01253091, 8630799716 ####[facility] (DEFAULT)[address] [place] [address] 00473 Sodium [Moles/Vol] 135.0 mmol/L Low 136.0-144 . 0 [facility] Comment on above: Performed By: #### 1 [id number], 1112455, 7585789922, 6711725039, 5288813, 81728015, 6698576591 ####[facility] (DEFAULT)[address] [place] [address] 13218 Urea nitrogen [Mass/Vol] 15 mg/dL Normal 8-26 [facility] Comment on above: Performed By: #### 1 062303363, 9766214, 6182739856, 8806991128, 5013699, 79796024, 1331577255 ####[facility] (DEFAULT)[address] [place] [address] 47040 Urea nitrogen/Creatinine [Mass ratio] 19.2 mg/mg High 4.6-16.2 [facility] Comment on above: Performed By: #### 1 487014253, 7977878, 5477964135, 2344934661, 0299721, 62533990, 3967082815 ####[facility] (DEFAULT)[address] [place] [address] [address]23 Ct angiography head [...] DO 01/14/24 8:11 am Technologist: FREEMAN Goldstein [facility] CT Head or Brain w/o [...] MD 01/14/24 6:53 am Technologist: KALYAN Goldstein [facility] ED Clinical Summaryon 2023 ED Clinical Summary [facility] - Emergency Department [address] [place], [place] [id number] ED Clinical Summary PERSON INFORMATION Name: KARUNA DUMONT Age: 43 Years Sex: FEMALE : 1980 MRN: Acct#: Visit Reason: Headache; HEADACHE Arrival: 01/14/2024 04:59:27 Discharge: 01/14/2024 09:46:00 LOS: 000 04:47 Check In: 01/14/2024 04:59:27 Checkout:01/14/2024 09:46:00 Address: [address] [place] [address] PCP: Johnathon Winter MD PROVIDER INFORMATION Provider Role Assigned Unassigned 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 Stated headache is [...] Past Substance Use (more content not included)... [facility] ED Note - Physicianon 2023 [...] evaluation of headache. 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 Stated headache is [...] Plan Diagnosis Sudden onset of severe headache (TGJ00-AM R51.9, Discharge, Medical) Headache, unspecified ([id number]-RC R51.9, Medical) Plan Condition: Improved, Stable. Disposition: Disch (more content not included)... Normal [facility] ED Patient Summaryon ED Patient Summary [facility] - Emergency Department [address] [place] [address] PATIENT DISCHARGE INSTRUCTIONS Patient Information Name: KARUNA DUMONT Age: 43 Years Date of : 1980 [facility]: [id number] Reason For Visit: Headache; HEADACHE Arrival Time: 01/14/2024 04:59:27 Primary Care Physician: Johnathon Winter MD Attending Physician: Santy Mckeon MD Comment: Visit Diagnosis: Diagnoses This Visit Headache (31017351) Headache, unspecified (R51.9) Sudden onset of severe headache (R51.9) The Pharmacy at [facility] is open Monday through Monday from [...] alcohol and/or drug addiction problems; contact the [facility] 24/10 Crisis Hotline -text 4hope to [phone]. If you received any narcotics, sedation, or [...] legal documents With: Address: When: Johnathon Winter [address] [place] [address] Business (1) Within 2 to 4 days [...] and treatment you received today in the [facility] Emergency Department were for an urgent problem and are not intended as complete care. It is important for you to follow up with a doctor, nurse practitioner, or physician?s environmental emergencies assistant for ongoing care. If your symptoms [...] so we can reach you if necessary. [facility] Emergency Department has provided you with a complete list of medications post discharge. Please inform your service coordinator elderly facility/provider of your visit and for further instruction [...] amine (amphetamine-dextroa (more content not included)... Normal [facility] Eosinophils/100 WBC Auto (Bl d)on 01-14-2024 Eosinophils/100 WBC (Bld) Automated eosinophil % 0.9-4.0 [facility] Erythrocyte distribution wid th Auto (RBC) [Ratio]on 01-14-2024 Erythrocyte distribution width (RBC) [Ratio] Erythrocyte distribution width [Ratio] by Automated count 11.5-15.0 [facility] Estimated glomerular filtrat ion rate (GFR) non- Americanon 01-14-2024 GFR/1.73 sq M.predicted among non-blacks MDRD (S/P/Bld) [Vol rate/Area] Estimated glomerular filtration rate (GFR) non- [facility] Extra Greenon 01-14-2024 Tube Collected Yes Invalid Interpretation Code [facility] Comment on above: Performed By: #### 1 [id number], 9480782, 0528516192, 1358333394, 8390195, 99546747, 1666561085 ####[facility] (DEFAULT)[address] [place] [address] Globulin Calc (S) [Mass/Vol] on 01-14-2024 Globulin (S) [Mass/Vol] Serum globulin measurement by calculation (mass/volume) 1.5-4.3 [facility] Hematocrit Auto (Bld) [Volum e fraction]on 01-14-2024 Hematocrit (Bld) [Volume fraction] Hematocrit [Volume Fraction] of Blood by Automated count 33.7-40.4 [facility] Hemoglobin [Mass/volume] in Bloodon 01-14-2024 Hemoglobin (Bld) [Mass/Vol] Hemoglobin [Mass/volume] in Blood 11.3-15.9 [facility] Laboratory - Chemistry and C hemistry - challengeon 01-14-2024 Albumin [Mass/Vol] 3.6 g/dL 3.5-5.0 [facility] ALP [Catalytic activity/Vol] 73 U/L 32-91 [facility] ALT [Catalytic activity/Vol] 16.0 U/L 14.0-54.0 [facility] AST [Catalytic activity/Vol] 19 U/L 15-41 [facility] Bilirubin [Mass/Vol] 0.2 mg/dL Low 0.3-1.2 [facility] Calcium [Mass/Vol] 8.4 mg/dL Low 8.9-10.3 [facility] Chloride [Moles/Vol] 108 mmol/L 101-111 [facility] CO2 [Moles/Vol] 24 mmol/L 21-32 [facility] Creatinine [Mass/Vol] 0.78 mg/dL 0.60-1.30 [facility] GFR/1.73 sq M.predicted MDRD (S/P/Bld) [Vol rate/Area] mL/min/{1.73_m2} [facility] Glucose [Mass/Vol] 88.0 mg/dL 74.0-118.0 [facility] Potassium [Moles/Vol] 3.9 mmol/L 3.6-5.1 [facility] Protein [Mass/Vol] 6.5 g/dL 6.5-8.1 [facility] Sodium [Moles/Vol] 135.0 mmol/L Low 136.0-144 . 0 [facility] Urea nitrogen [Mass/Vol] 15 mg/dL 8-26 [facility] Urea nitrogen/Creatinine [Mass ratio] 19.2 mg/mg High 4.6-16.2 [facility] Laboratory - Hematology and Cell countson 01-14-2024 ESR (Bld) [Velocity] 8 mm/h 0-20 [facility] Leukocytes [#/volume] correc mini for nucleated erythrocytes in Blood by Automated counon 01-14-2024 WBC corrected for nucl RBC Auto (Bld) [#/Vol] Leukocytes [#/volume] corrected for nucleated erythrocytes in Blood by Automated coun 3.5-10.5 [facility] Lymphocytes Auto (Bld) [#/Vo l]on 01-14-2024 Lymphocytes (Bld) [#/Vol] Lymphocytes [#/volume] in Blood by Automated count 1.3-2.9 [facility] Lymphocytes/100 WBC Auto (Bl d)on 01-14-2024 Lymphocytes/100 WBC (Bld) Lymphocytes/100 leukocytes in Blood by Automated count 14-48 [facility] MCH Auto (RBC) [Entitic mass ]on 01-14-2024 MCH (RBC) [Entitic mass] MCH [Entitic mass] by Automated count 24-34 [facility] MCHC Auto (RBC) [Mass/Vol]on 01-14-2024 MCHC (RBC) [Mass/Vol] MCHC [Mass/volume] by Automated count 26-37 [facility] MCV Auto (RBC) [Entitic vol] on 01-14-2024 MCV (RBC) [Entitic vol] MCV [Entitic vol ume] by Automated count 81-100 [facility] Monocytes Auto (Bld) [#/Vol] on 01-14-2024 Monocytes (Bld) [#/Vol] Automated blood monocyte count 0.0-0.8 [facility] Monocytes/100 WBC Auto (Bld) on 01-14-2024 Monocytes/100 WBC (Bld) Automated monocyte % 1- 12 [facility] Neutrophils Auto (Bld) [#/Vo l]on 01-14-2024 Neutrophils (Bld) [#/Vol] Neutrophils [#/volume] in Blood by Automated count 1.5-9.2 [facility] Neutrophils/100 WBC Auto (Bl d)on 01-14-2024 Neutrophils/100 WBC (Bld) Automated neutrophil % 44-88 [facility] No Panel Informationon 01-13 Add Manual Differential Auto Auto F [facility] Eosinophils # (Auto) 0.1 x10 0.0-0.4 [facility] Osmolality 270 mOsm/L [facility] Platelet mean volume Auto (B ld) [Entitic vol]on 01-14-2024 Platelet mean volume (Bld) [Entitic vol] Platelet mean volume [Entitic volume] in Blood by Automated count 6.3-10.2 [facility] Platelets Auto (Bld) [#/Vol] on 01-14-2024 Platelets (Bld) [#/Vol] Platelets [#/vol ume] in Blood by Automated count 138-427 [facility] RBC Auto (Bld) [#/Vol]on RBC (Bld) [#/Vol] Erythrocytes [#/volu me] in Blood by Automated count 3.70-5.30 [facility] Sed Rateon 01-14-2024 Sed Rate 8 mm/hr Normal 0-20 [facility] Comment on above: Performed By: #### 1 [id number], 4644397, 2126553107, 3583425775, 2796146, 29764454, 5104184854 ####[facility] (DEFAULT)[address] [place] [address] Serum or plasma albumin/glob ulin mass ratioon 01-14-2024 Albumin/Globulin [Mass ratio] Serum or plasma albumin/globulin mass ratio Low 1.4-2.6 [facility] Serum or plasma anion gap de terminationon 01-14-2024 Anion gap [Moles/Vol] Serum or plasma an ion gap determination 5.0-19.0 [facility] VITAMIN B12on 12-29-2023 Cobalamin (Vitamin B12) [Mass/Vol] 303 pg/mL 232 - 1245 pg/mL [facility] Comment on above: Performed at: [address] [id number] Client Account Specialist: Theron Roblero PhD, Phone: [phone] [facility] ALL CBC WITH AUTO DIFFon BASOPHILS ABSOLUTE AUTO 0.[address] [facility] Basophils/100 WBC (Bld) 0.8 % 0.2 - 2.0 % [facility] Eosinophils/100 WBC (Bld) 1.5 % 0.9 - 7.0 % [facility] Erythrocyte distribution width (RBC) [Ratio] 13.7 % 11.0 - 15.0 % [facility] Hematocrit (Bld) [Volume fraction] 41.5 % 36.0 - 48.0 % [facility] Hemoglobin (Bld) [Mass/Vol] 12.9 g/dL 12.0 - 16.0 g/dL [facility] IMMATURE GRANULOCYTES ABS AUTO 0.02 [facility] Immature granulocytes/100 WBC (Bld) 0.3 % 0.0 - 0.5 % [facility] Interpretation and review of laboratory results Abnormal [facility] LYMPHOCYTES ABSOLUTE AUTO 2.5 [facility] Lymphocytes/100 WBC (Bld) 34.0 % 20.5 - 60.0 % [facility] MCH (RBC) [Entitic mass] 27.4 pg 26.7 - 34.0 pg [facility] MCHC (RBC) [Mass/Vol] 31.1 g/dL 29.9 - 35.2 g/dL [facility] MCV (RBC) [Entitic vol] 88.3 fL 81.0 - 99.0 fL [facility] MONOCYTES ABSOLUTE AUTO 0.[address] [facility] Monocytes/100 WBC (Bld) 5.9 % 1.7 - 12.0 % [facility] NEUTROPHILS ABSOLUTE AUTO 4.2 [facility] Neutrophils/100 WBC (Bld) 57.5 % 43.0 - 75.0 % [facility] Platelet mean volume (Bld) [Entitic vol] 8.7 fL Low 9.5 - 13.5 fL [facility] TBH EO # 0.1 [facility] TBH PLT 279 [facility] TB RBC 4.70 [facility] TB WBC 7.3 [facility] MLR HEMOGLOBIN A1Con 024 Glucose [Mass/Vol] 97 mg/dL [facility] HbA1c (Bld) [Mass fraction] 5.0 % 4.5 - 6.2 % [facility] Comment on above: ADA RECOMMENDED LIMI T 4.0 - 6.0 ADA THERAPEUTIC TARGET < 7.0 ACTION SUGGESTED > 7.0 [facility] HCG ( test) Ql (U)o n 12-06-2023 Preg Test, Ur Negative [facility] Jose 12-06-2023 L Specimen: [id number] Received: 12/07/23 Status: NATHAN Guzmán Num: [id number] Spec Type: Surgical Subm Dr: Sanjeev Lopez Tissues: A Endometrium - Biopsy (EMBX) Procedures: HE/2, Gross/Micro L4 Age/ Patient Sex Location Account Attending Physician Karuna Dumont 43/F [place] [id number] Sanjeev Lopez SPEC NUM: [id number] RECD: 12/07/23 STATUS: NATHAN GUZMÁN NUM: [id number] GENEVA: 12/06/23- SUBM DR: Sanjeev Lopez ENTERED: 12/07/23 [facility] DR: eBrt,Lab SPEC TYPE: Surgical DEPT: ROLDAN THOMPSON ENTERED BY: [id number] RECV BY: [id number] ORDERED: HE/2, Gross/Micro L4 ORDERED: HE/2, Gross/Micro [...] are performed supporting the above interpretation Specimen: [id number] Received: 12/07/23 Status: NATHAN Guzmán Num: [id number] Spec Type: Surgical Subm Dr: Sanjeev Lopez Tissues: A Endometrium - Biopsy (EMBX) Procedures: HE/2, Gross/Micro L4 Patient: Karuna Dumont [id number] (Continued) Specimen: [id number] Received: 12/07/23 (Continued) Signed (signature on file) Frida Kirby MD 12/12/23 2158 Specimen: [id number] Received: 12/07/23 Status: NATHAN Guzmán Num: [id number] Spec Type: Surgical Subm Dr: Sanjeev Lopez Tissues: A Endometrium - Biopsy (EMBX) Procedures: Melissa, Gross/Micro L4 Patient: Karuna Dumont [id number] (Continued) Specimen: [id number] Received: 12/07/23 (Continued) CPT Codes 35262 Specimen: [id number] Received: 12/07/23 Status: NATHAN Guzmán Num: [id number] Spec Type: Surgical Subm Dr: Sanjeev Lopez Tissues: A Endometrium - Biopsy (EMBX) Procedures: HE/2, Gross/Micro L4 Patient: Karuna Dumont [id number] (Continued) Signed (signature on file) Frida Kirby MD 12/12/23 4271 Normal [facility] ALL DHEA SULFATEon DHEA-SULFATE 40.8 ug/dL Abnormal 57.3 - 279.2 ug/dL [facility] METRO SEX BINDING HORMONE (S HBG), TESTOSTERONE, FREE AND BIOAVAILABLEon 12-02-2023 SEX HORM BINDING GLOB, SERUM 60.9 nmol/L 24.6 - 122.0 nmol/L [facility] Comment on above: Performed at: - [address] [id number] Client Account Specialist: Theron Roblero PhD, Phone: [phone] No Panel Informationon 12-01 Interpretation and review of laboratory results Abnormal [facility] SRMCOH TESTOSTERONE FREE/TOT EQUILIBon 12-02-2023 FREE TESTOSTERONE(DIRECT) <0.2 0.0 - 4.2 pg/mL [facility] Comment on above: Performed at: [facility] [address] [place], [place] [id number] Client Account Specialist: Theron Roblero PhD, Phone: [phone] Performed at: [facility] [id number] Client Account Specialist: Katelynn Macdonald MD, Phone: [phone] Testosterone [Mass/Vol] ng/dL Abnormal 8 - 60 ng/dL [facility] Free testosterone measuremen t by LC-MS/MSon 11-29-2023 Testosterone Free [Mass/Vol] <0.2 pg/mL 0.0-4.2 [facility] Comment on above: Performed at: [employer] [place] [id number] Director: Theron Roblero PhD, Phone: [phone] at: [facility] [id number] Director: Katelynn Macdonald MD, Phone: [phone] No Panel Informationon 11-28 Dehydroepiandrosterone Sulfate 40.8 ug/dL Abnormal 57.3-279.2 [facility] Sex Hormone Binding Globulin 60.9 nmol/L 24.6-122.0 [facility] Comment on above: Performed at: [facility] [place], [place] [id number] Director: Theron Roblero PhD, Phone: [phone] Testosterone Level <3 ng/dL Abnormal 8-60 [facility] Activated partial thrombopla stin time (aPTT) in platelet poor plasma by coagulation aon 10-25-2023 aPTT Coag (PPP) [Time] 29.5 s 22.3-36.2 [facility] Basophils Auto (Bld) [#/Vol] on 10-25-2023 Basophils (Bld) [#/Vol] 0.1 10 3/uL 0.0-0.1 [facility] Basophils/100 WBC Auto (Bld) on 10-25-2023 Basophils/100 WBC (Bld) 1.1 % 0.2-2.0 [facility] Eosinophils/100 WBC Auto (Bl d)on 10-25-2023 Eosinophils/100 WBC (Bld) 2.2 % 0.9-7.0 [facility] Erythrocyte distribution wid th Auto (RBC) [Ratio]on 10-25-2023 Erythrocyte distribution width (RBC) [Ratio] 14.5 % 11.0-15.0 [facility] Glucose mean value [Mass/vol ume] in Blood Estimated from glycated hemoglobinon 10-25-2023 Average glucose Estimated from glycated hemoglobin (Bld) [Mass/Vol] 88 mg/dL [facility] Hematocrit Auto (Bld) [Volum e fraction]on 10-25-2023 Hematocrit (Bld) [Volume fraction] 39.8 % 36.0-48.0 [facility] Hemoglobin [Mass/volume] in Bloodon 10-25-2023 Hemoglobin (d) [Mass/Vol] 12.6 g/dL 12.0-16.0 [facility] INR in Platelet poor plasma by Coagulation assayon 10-25-2023 INR Coag (PPP) [Relative time] 0.99 {INR} [facility] Comment on above: DESIRED INR:2.0-3.0 CONDITIONS NOT LISTED BELOW2.5-3.5 FOR PROSTHETIC HEART VALVE REPLACEMENT2.5-3.5 RECURRENT THROMBOSIS Laboratory - Chemistry and C hemistry - challengeon 10-25-2023 Free T4 [Mass/Vol] 1.24 ng/dL 0.76-1.46 [facility] TSH Qn 1.497 m[IU]/L 0.358-3.74 0 [facility] - Hematology and Cell countson 10-25-2023 HbA1c (Bld) [Mass fraction] 4.7 % 4.5-6.2 [facility] Comment on above: ADA RECOMMENDED LIMI T 4.0 - 6.0ADA THERAPEUTIC TARGET < 7.0ACTION SUGGESTED> 7.0 Immature granulocytes/100 WBC (Bld) 0.2 % 0.0-0.5 [facility] Leukocytes [#/volume] correc mini for nucleated erythrocytes in Blood by Automated counon 10-25-2023 WBC corrected for nucl RBC Auto (Bld) [#/Vol] 5.5 10 3/uL 4.0-11.0 [facility] Lymphocytes Auto (Bld) [#/Vo l]on 10-25-2023 Lymphocytes (Bld) [#/Vol] 1.8 10 3/uL 1.2-3.8 [facility] Lymphocytes/100 WBC Auto (Bl d)on 10-25-2023 Lymphocytes/100 WBC (Bld) 33.3 % 20.5-60.0 [facility] MCH Auto (RBC) [Entitic mass ]on 10-25-2023 MCH (RBC) [Entitic mass] 27.9 pg 26.7-34.0 [facility] MCHC Auto (RBC) [Mass/Vol]on 10-25-2023 MCHC (RBC) [Mass/Vol] 31.7 g/dL 29.9-35.2 [facility] MCV Auto (RBC) [Entitic vol] on 10-25-2023 MCV (RBC) [Entitic vol] 88.1 fL 81.0-99.0 [facility] Monocytes Auto (Bld) [#/Vol] on 10-25-2023 Monocytes (Bld) [#/Vol] 0.3 10 3/uL 0.3-0.8 [facility] Monocytes/100 WBC Auto (Bld) on 10-25-2023 Monocytes/100 WBC (Bld) 5.4 % 1.7-12.0 [facility] Neutrophils Auto (Bld) [#/Vo l]on 10-25-2023 Neutrophils (Bld) [#/Vol] 3.2 10 3/uL 1.4-6.5 [facility] Neutrophils/100 WBC Auto (Bl d)on 10-25-2023 Neutrophils/100 WBC (Bld) 57.8 % 43.0-75.0 [facility] No Panel Informationon 10-24 Eosinophils # (Auto) 0.1 10 3/uL 0.0-0.7 [facility] Human Chorionic Gonadotropin, Quant <1 mIU/mL [facility] Comment on above: 5-50 0.2-1 EVOJ42-38 0 1-2 OLHKF408-9,000 2-3 HSIQO516-45,000 3-4 WEEKS1,000-50,000 4-5 WEEKS10,000-100,000 5-6 WEEKS15,000-200,000 6-8 WEEKS10,000-100,000 2-3 MONTHS Immature Granulocyte # (Auto) 0.01 10 3/uL 0.00-0.03 [facility] Platelet mean volume Auto (B ld) [Entitic vol]on 10-25-2023 Platelet mean volume (Bld) [Entitic vol] 9.7 fL 9.5-13.5 [facility] Platelets Auto (Bld) [#/Vol] on 10-25-2023 Platelets (Bld) [#/Vol] 300 10 3/uL 150-450 [facility] Prothrombin time (PT)on 10-02 PT Coag (PPP) [Time] 10.5 s 9.0-11.6 [facility] RBC Auto (Bld) [#/Vol]on RBC (Bld) [#/Vol] 4.52 10 6/uL 4.20-5.40 [facility] Coding Summaryon 09-01-2023 Coding Summary HTMLBase 64 NrrqylitLBr5bYx+PGhlYWQ+ MY2MBTSxP77ltKScrY7aP2GE TElOSywgQVBQTElOSyIgbmFt PX0sxJUoMHSr IC8+AQ2hFTYjKicmoQUkx5E9 vHV6T19eqk3qXTaueNN1CFPo SpVhkjbmj0kijUq0QZkpSjzd OyBt RPLpsD70XHY3tL26Ce45jBGa lBFxy8mooPr1LuIcGJOpLYT7 sAndIQgsp9VwNUNbC77xcZRp c2U6 YUAzdEqdtVNbTuHtwNF2tD1r JJcnkfrdk3ltheapMlo9bs61 mQCsk9C8mGF1M5OqbpQ9OLMg bGQg OxnjyMHZbX1jiwurn6uxjbzn DzCgZVHpLOw7KLk0EATloSys CcZkHX66TPR8TOBflsNcN4Nm LWFs yDbgGvI1x5K6Cu8OT6ZKFebv W4HZRYYZRUuprRZ+BR96tg82 B5CtLrbnPbu9IDEiVNC0wCW0 aD0n NLTzKYkjs2K8iLV9L4BjitRf km0iu0gtAQRdLGzvV08spULi i8O9JHEbpBO5OCWxuSbdBkMb aG93 Oyc+DEXgfXoip5BkZnnoz1uy i8abgHu6LdfbEWDicbYjhSrv NRB1c2HePi5pKDJzbEA6zHH7 aD0i PiViRvB9OBggX270ViUfcSYv TqliC65jC4ArnCV+PHRyPjx0 LOFksBgiSI2jN3OhGCSdddus bGVm eZwfPV5zGXDzatqfEROyyN0x QYYfZ1h6CfDpXeD6VPzzA0Ti ZHFusgbgKj59uS0qPqTiDlR8 MGlu W1QdqzL9QJVmgKBvMMtjXDC0 R76lk0R9TDLrTTLqRAS6eBB7 kR4qmZuvfncnhRUjnGubouZy dGlj YIdqSNzcI737ZQRehEvpPhWk ZGluZyBEYXRlOiAgMDUvMzEv MjAyNDwvdGQ+VBCkVRI1bPju PSAn iWJcNTbsGu5yeKvysKgqYX5f LZNahybySLXafD1iQOVvgGJv dUkrGW5lLDZupwggz947AmPr MHB0 OMZcoDOzW5ZyxJ9aAhWyFKXh KJGkY0WvgWKpCCqcP698KInm NgQ2OFZlihOaU3HbQSLbrGqg OiB0 z3R8He7Dj4ByplvjH7BdiQQk HcDjZakkWCv9H3OrGamodJE+ ZP69NHMzNE33SUz7JMR7oEwn PSdi XFSlG9ZvvO1yIpUgDAQjMGPo Oyc+PHRhYmxlIHdpZHRoPScx ZJKoIqQmuPehIL3ePv7zBVIg LWNv mUchcHMkBmEuf9ezWEAmYVxl UF0eeZgqR4PxpLC5ANPib6s1 As74P56nR7HkaNC+PGNvbCB3 aWR0 nV6qCaIdUtL1JWpyV058JwRd gCKyDnpos1ssi4yuaZz6WiP4 CNBddzFkeDnaGCQ2e8LaWk24 Y29s IHdpZHRoPSIxNSUiIHZhbGln hz2noO3xKf8+NZQgwNG2jRM3 mL2qKhTzOlG2BQooA230LkGw cCIv Wtbew1scf9rzcIq8ZdChMSMs ztTpdCxtSHE0i8VqPo24J9Jk mRlhf1ZnPqa2xe55wIAbn4N8 bGU9 X1KvOPSvysdpmPTjvHehSG3j IPLeeicgRBLbzO1fVTFzK7p9 UoKsCkR9XSkbA4RdhuY3TSNs bGQg HMPpoHNLuV0zkvyle7znpaow AaKlPYCkDIp3ZYl5IAJmbAqu AdOmZDH9BkY1LXM7fEYdlQ6a bGln ivdavC1iGgv+IPV8uHMciHIC BK1iXbxnzFO+LDBfVTY9uZwf OSlfSRCdfX4qIHGjF9y4KiIp LjA1 HPvzI0IcjpF2ITTgiKToUCNa jJSXgS6tocjwh3ejzolhJjYy CZHhMOh4GYa2HNRhcRttKrQz ZWZ0 AyZ4CHO5qWCowM7suZarelmw dQ4eNom+FzinuClcHXK2SMa8 H6OpPyt0CSUfpAbhSI1kuNOh ZGlu Fr4adWozgRswTS8mFYLscccw w548FsDmv9syKFQwrQMcTCls COQ9C30ux8Q3ONEiOKCjJHA3 dGV4 dP0ulTjvmwvdbFJbsUepgdUx pHymQSoyHVaoW323MMWrcZlj JhShLXd0U9NpPgd3QKAelNho ZT0n wLCqXDkzLi2hjKxxaKtdGT2s ZAPgargfl274KsYhi1utCTXq uJNsRAjjZGU4A84xp6P5OMOl MDAw XHI3gVQ1hC1esErjukdnrZQc hDrhutLqcZgnJQlrWEdmW764 NLIbqBbtAaEbhZu2M0LmMem4 ZCBz dNmfUT0hvSClTQpfPt7tqPsb rCivRK6dCCTddjxjv267JgHa y7esMNHeoXGwBKxzPAM9R04n b3I6 ZMTrRHByHBR1bXC5oC3syCwl bjogbGVmdDsgdmVydGljYWwt RMtaJ357ANZctSpsLsOtuGmj bnQg FPsaOQr0R3VoCggunHD+PC90 SMVuXE39aLXhcDGza3oxpDj4 XaPaWVGbQUP9aRekWSvdp4Ol ZXIt O29riHRvo5P6WNMzcOuvyZZv EuWhwWO1bG2yFWejfpuun7qb rqnaJjgwe4ilex85rK08D56q IHdp NALoFROlAPCfQFVplMsapa5k qN1wUx2+SNQtsTL8mAA6tI3i LLRpZgB3TNutH346HsFbyLBq Pjxj i4tkv6olfQd7ZsG6IPAcwjVo cNxfWGC3k8FoVk57E30qLCdq UDJmQCXhXEKbFYWvzYezwx5s dG9w Ii8+YANpnYO4tMA8pJ8xNmAt LiH1VVqmT213LgQbaFUdBuzd G02vP3GfbTG+WZZjIub9LIRb dHls QE2ghCGvCXagYr1lYPQ8XfZl VxOwCHftX6GpIBDrxgquktia wOJ6UQHiEEHibA12Iu2wcCni MTBw yZNYyB2tnhgff3kqulhaMcPf ZIZsQSz5SPe7DFNonZapYfNw YYJ8HoE1JJU7hFHnmN7lpYny bjog nE2aA8HiZVYloixpIr06bV7o BuEfCqI9SQdkVab+X95ZD4vC LCBBTUFOREEgREFXTjwvdGQ+ PHRk DDL0zUgsEOmbETXtpB8xOJKr F5m3GtQwQmN4LZzfD8LkCOFc rvucTq37cO4cTcVlHsP8LSnm O2Zv wgV6IAWhpQRjKOreGNO9J27s h0H3KEClYSSjHQS9pTO1jM7d bGlnbjogbGVmdDsgdmVydGlj YWwt GYwkH517MTNbpBgsXpY7UwFh QuI1BAD1T3ZgBxl4HKOpqPlf FS7zpIBiNKslXl1xlTzseFus MC4w ZJDanjtoGOHskR0fCHHvkABt lYouUB5kYSLwuvpaf301MeLh BHN5VBMcpSQaC5TwtU1oIcNv MDAw SPDrS5NxiBCqUKphH993ZOzr YtQ9SIHpwdDvP7CrAQRmqJwk UiU6h4V6Uh18OWRAHQPxhfqc dGQ+ OAYaYZX9cBhyKBavITZpaP8u CKTzM8u0EcDgXkK4DGdtK0Mc MBYsxiivTe03aX7pCwVfBtU8 MGlu H4FohjX6CAJheFJjPWcsQZL0 Y02sd5A4SBTtNTCvXDF9xVB7 pL7hvThgtytrqBSobFfmfeZv dGlj LTakUPltH544UDOtzCuqAnZP TUFMRTwvdGQ+TSBlUXB3kNwd JPjcYIAxxJ3vYXQiN5j1OtJm LjA1 FUieR8MrQBVqphexCp00hI4y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 should be performed with a new specimen in 48-72 hours. If early is suspected clinically in this setting, correlation with quantitative serum b-hCG level is suggested. [facility] has confirmed the use of plasma for this test. This has not been cleared or approved by the U.S. Food and Drug Administration. The FDA has determined that such clearance is not necessary. [facility] HCG Screen, Bloodon 01-04-20 22 HCG Screen, Blood Negative Normal NEG [facility] Comment on above: Result Comment: Spec imens with hCG levels near the threshold of the test (25 mIU/mL) may give a negative or indeterminate result. In such cases, another test should be performed with a new specimen in 48-72 hours. If early is suspected clinically in this setting, correlation with quantitative serum b-hCG level is suggested. [facility] has confirmed the use of plasma for this test. This has not been cleared or approved by the U.S. Food and Drug Administration. The FDA has determined that such clearance is not necessary. Performed By: #### H CG, LIP, MG, CDP, CMPX #### [address] [address] Client Account Specialist: Estevan Corcoran MD Lipaseon 01-03-2022 Lipase [Catalytic activity/Vol] 20 U/L Normal 13-60 [facility] Comment on above: Performed By: #### H CG, LIP, MG, CDP, CMPX #### [place] [id number] Client Account Specialist: Estevan Corcoran MD Lipase [Catalytic activity/Vol] 20 U/L 13 - 60 U/L [facility] Magnesiumon 01-03-2022 Magnesium [Mass/Vol] 2.1 mg/dL Normal 1.6-2.6 [facility] Comment on above: Performed By: #### H CG, LIP, MG, CDP, CMPX #### [place] [address] Client Account Specialist: Estevan Corcoran MD Magnesium [Mass/Vol] 2.1 mg/dL 1.6 - 2 .6 mg/dL [facility] Microscopic Urinalysison Bacteria, UA MANY Abnormal None [facility] Epithelial Cells UA TOO NUMEROUS TO COUNT [facility] Interpretation and review of laboratory results Abnormal [facility] Other Observations UA Utilizing a urinal ysis as the only screening method to exclude a potential uropathogen can be unreliable in many patient populations. Rapid screening tests are less sensitive than culture and if UTI is a clinical possibility, culture should be considered despite a negative urinalysis. Abnormal NOT REQ. [facility] RBC, UA 2 TO 5 [facility] WBC, UA 2 TO 5 [facility] UA w/Reflex Cultureon 2021 Bilirubin, SemiQt,Ur Negative Normal NEG [facility] Comment on above: Performed By: #### U GEORGES GILMAN ####[place] [address] Lab Director: Estevan Corcoran MD Blood, Urine LARGE Abnormal NEG [facility] Comment on above: Performed By: #### U GEORGES GILMAN ####[place] [id number] Lab Director: Estevan Corcoran MD Clarity (U) Cloudy Abnormal CLEAR [facility] Comment on above: Result Comment: FOUL ODOR Performed By: #### U KALINA UMSUADO ####[address] [id number] Lab Director: Estevan Corcoran MD Color (U) Yellow Normal YEL [facility] Comment on above: Performed By: #### U AX, UMICAO ####[address] [address] Lab Director: Estevan Corcoran MD Glucose Ql (U) Negative Normal NEG [facility] Comment on above: Performed By: #### U AX, UMICAO ####[place] [address] Lab Director: Estevan Corcoran MD Ketones Ql (U) Negative Normal NEG [facility] Comment on above: Performed By: #### U AX, UMICAO ####[place] [address] Lab Director: Estevan Corcoran MD Leukocyte esterase Test strip Ql (U) Negative Normal NEG [facility] Comment on above: Performed By: #### U AX, UMICAO ####[place] [address] Lab Director: Estevan Corcoran MD Nitrite,Ur Negative Normal NEG [facility] Comment on above: Performed By: #### U AX, UMICAO ####[address] [address] Lab Director: Estevan Corcoran MD PH,Ur 6.0 Normal 5.0-8.0 [facility] Comment on above: Performed By: #### U AX, UMICAO ####[address] [address] Lab Director: Estevan Corcoran MD Protein Ql (U) Negative Normal NEG [facility] Comment on above: Performed By: #### U AX, UMICAO ####[address], [place] [id number] Lab Director: Estevan Corcoran MD Spec. [place],Ur 1.108 High 1.005-1.03 0 [facility] Comment on above: Result Comment: POST IV CONTRAST Performed By: #### U AXGEORGES ####[address] [address] lab Director: Estevan Corcoran MD Urobilinogen,Ur Normal Normal NORM [facility] Comment on above: Performed By: #### U AXGEORGES ####[place] [address] lab Director: Estevan Corcoran MD Urinalysis with Reflex to Cu ltureon 01-03-2022 Bilirubin Urine Negative NEGATIVE [facility] Color, UA Yellow Yellow [facility] Glucose, Ur Negative NEGATIVE [facility] Interpretation and review of laboratory results Abnormal [facility] Ketones Ql (U) Negative [facility] Leukocyte esterase Test strip Ql (U) Negative NEGATIVE [facility] Nitrite, Urine Negative [facility]IVE [facility] pH, UA 6.0 5 - 8 [facility] Protein, UA Negative NEGATIVE [facility] Specific [place], UA 1.108 High 1.005 - 1.03 [facility] Comment on above: POST IV CONTRAST Turbidity UA Cloudy Abnormal Clear [facility] Comment on above: FOUL ODOR Urine Hgb LARGE Abnormal NEGATIVE [facility] Urobilinogen, Urine Normal Normal [facility] Urinalysis,Microon 2 Bacteria MANY Abnormal NONE [facility] Comment on above: Performed By: #### U AX UMSUADO ####[place] [id number] lab Director: Estevan Corcoran MD Epithelial cells LM Ql (Urine sed) TOO NUMEROUS TO COUNT Normal 0-5 [facility] Comment on above: Performed By: #### U AX, UMICAO ####[address] [id number] lab Director: Estevan Corcoran MD Other Observations Utilizing a urinalys is as the only screening method to exclude a potential Abnormal NREQ [facility] Comment on above: Result Comment: urop athogen can be unreliable in many patient populations. Rapid screening tests are less sensitive than culture and if UTI is a clinical possibility, culture should be considered despite a negative urinalysis. Performed By: #### U AX, UMICAO ####[address] [id number] lab Director: Estevan Corcoran MD Urine RBC's 2 TO 5 Normal 0-2 [facility] Comment on above: Performed By: #### U AX, UMICAO ####[address] [id number] lab Director: Estevan Corcoran MD Urine WBC's 2 TO 5 Normal 0-5 [facility] Comment on above: Performed By: #### U AX, UMICAO ####[address] [address] lab Director: Estevan Corcoran MD CT LUMBAR [...] leg pain. Follow-up MRI may be helpful. [facility] RIS CONSOLIDATED EXAMINATION: CT OF [...] leg pain. Follow-up MRI may be helpful. [employer] Work Phone: Radiology Study observation (narrative) [employer] [facility] Work Phone: CT LUMBAR SPINE WO CONTRASTO rdered By: Boyd Beatty on 08-19-2021 [employer] Work Phone: Vital Signs Date Time Vital Sign Value Performing Clinician Facility 10-29-2024 08:55-0400 Body height 165.1 cm Georgi Carreon DPM Work Phone: [facility] 10-29-2024 08:55-0400 Body mass index (BMI) [Ratio] 31.62 kg/m2 Georgi Carreon DPM Work Phone: [facility] 10-29-2024 08:55-0400 Body weight 86.18 kg Georgi Carreon DPM Work Phone: [facility] 09-17-2024 09:57-0400 Body height 165.1 cm Georgi Carreon DPM Work Phone: [facility] 09-17-2024 09:57-0400 Body mass index (BMI) [Ratio] 31.62 kg/m2 Georgi Carreon DPM Work Phone: [facility] 09-17-2024 09:57-0400 Body weight 86.18 kg Georgi Rusher DPM Work Phone: [facility] 09-04-2024 08:26-0400 Body height 165.1 cm Georgi Rusher DPM Work Phone: [facility] 09-04-2024 08:26-0400 Body mass index (BMI) [Ratio] 31.62 kg/m2 Georgi Rusher DPM Work Phone: [facility] 09-04-2024 08:26-0400 Body weight 86.18 kg Georgi Rusher DPM Work Phone: [facility] 08-21-2024 13:09-0400 Body height 165.1 cm Georgi Rusher DPM Work Phone: [facility] 08-21-2024 13:09-0400 Body mass index (BMI) [Ratio] 31.62 kg/m2 Georgi Rusher DPM Work Phone: [facility] 08-21-2024 13:09-0400 Body weight 86.18 kg Georgi Rusher DPM Work Phone: [facility] 07-31-2024 13:47-0400 Body height 165.1 cm Pm 2 [facility] 07-31-2024 13:47-0400 Body mass index (BMI) [Ratio] 31.62 kg/m2 Pm 2 [facility] 07-31-2024 13:47-0400 Body weight 86.18 kg Pm 2 [facility] 07-31-2024 12:55-0400 Body height 165.1 cm Georgi Rusher DPM Work Phone: [facility] 07-31-2024 12:55-0400 Body mass index (BMI) [Ratio] 31.62 kg/m2 Georgi Rusher DPM Work Phone: [facility] 07-31-2024 12:55-0400 Body weight 86.18 kg Georgi Rusher DPM Work Phone: [facility] 07-29-2024 11:17-0400 Body height 167.64 cm [facility] 07-29-2024 11:17-0400 Body mass index (BMI) [Ratio] 32.9 kg/m2 [facility] 07-29-2024 11:17-0400 Body weight 92.53 kg [facility] 07-29-2024 11:17-0400 Diastolic blood pressure 86 mm[Hg] [facility] 07-29-2024 11:17-0400 Heart rate 73 /min [facility] 07-29-2024 11:17-0400 Systolic blood pressure 120 mm[Hg] [facility] 07-22-2024 14:12-0400 Body mass index (BMI) [Ratio] 34.11 kg/m2 Sanjeev Jessica DO Work Phone: [facility] 07-22-2024 14:12-0400 Body weight 92.99 kg Sanjeev Jessica DO Work Phone: [facility] 07-22-2024 14:12-0400 Diastolic blood pressure 82 mm[Hg] Sanjeev Jessica DO Work Phone: [facility] 07-22-2024 14:12-0400 Systolic blood pressure 128 mm[Hg] Sanjeev Jessica DO Work Phone: [facility] 07-16-2024 09:09-0400 Body height 165.1 cm Georgi Carreon DPM Work Phone: [facility] 07-16-2024 09:09-0400 Body mass index (BMI) [Ratio] 31.62 kg/m2 Georgi Maria Del Rosarioher DPM Work Phone: [facility] 07-16-2024 09:09-0400 Body weight 86.18 kg Georgi Carreon DPM Work Phone: [facility] 05-17-2024 11:00-0500 Body height 167.64 cm [facility] 05-17-2024 11:00-0500 Body mass index (BMI) [Ratio] 31.1 kg/m2 [facility] 05-17-2024 11:00-0500 Body weight 87.54 kg [facility] 05-17-2024 11:00-0500 Diastolic blood pressure 90 mm[Hg] [facility] 05-17-2024 11:00-0500 Heart rate 124 /min [facility] 05-17-2024 11:00-0500 Systolic blood pressure 124 mm[Hg] [facility] 04-11-2024 09:59-0500 Body height 167.64 cm [facility] 04-11-2024 09:59-0500 Body mass index (BMI) [Ratio] 31.8 kg/m2 [facility] 04-11-2024 09:59-0500 Body weight 89.35 kg [facility] 04-11-2024 09:59-0500 Diastolic blood pressure 94 mm[Hg] [facility] 04-11-2024 09:59-0500 Heart rate 86 /min [facility] 04-11-2024 09:59-0500 Systolic blood pressure 138 mm[Hg] [facility] 02-26-2024 09:54-0500 Body mass index (BMI) [Ratio] 33.12 kg/m2 Sanjeev Jessica DO Work Phone: [facility] 02-26-2024 09:54-0500 Body weight 90.27 kg Sanjeev Ejssica DO Work Phone: [facility] 02-26-2024 09:54-0500 Diastolic blood pressure 80 mm[Hg] Sanjeev Jessica DO Work Phone: [facility] 02-26-2024 09:54-0500 Systolic blood pressure 130 mm[Hg] Sanjeev Jessica DO Work Phone: [facility] 01-18-2024 14:03-0400 Body height 165.1 cm [facility] 01-18-2024 14:03-0400 Body mass index (BMI) [Ratio] 31.45 kg/m2 [facility] 01-18-2024 14:03-0400 Body weight 85.73 kg [facility] 01-03-2024 10:48-0400 Body mass index (BMI) [Ratio] 33.75 kg/m2 Sanjeev Jessica DO Work Phone: [facility] 01-03-2024 10:48-0400 Body weight 91.99 kg Sanjeev Jessica DO Work Phone: [facility] 01-03-2024 10:48-0400 Diastolic blood pressure 74 mm[Hg] Sanjeev Jessica DO Work Phone: [facility] 01-03-2024 10:48-0400 Systolic blood pressure 116 mm[Hg] Sanjeev Jessica DO Work Phone: [facility] 12-06-2023 11:46-0400 Body mass index (BMI) [Ratio] 32.78 kg/m2 Sanjeev Jessica DO Work Phone: [facility] 12-06-2023 11:46-0400 Body weight 89.36 kg Sanjeev Jessica DO Work Phone: [facility] 12-06-2023 11:46-0400 Diastolic blood pressure 72 mm[Hg] Sanjeev Jessica DO Work Phone: [facility] 12-06-2023 11:46-0400 Systolic blood pressure 124 mm[Hg] Sanjeev Jessica DO Work Phone: [facility] 11-29-2023 13:37-0400 Body mass index (BMI) [Ratio] 34.28 kg/m2 Sanjeev Jessica DO Work Phone: [facility] 11-29-2023 13:37-0400 Body weight 93.44 kg Sanjeev Jessica DO Work Phone: [facility] 11-29-2023 13:37-0400 Diastolic blood pressure 74 mm[Hg] Sanjeev Jessica DO Work Phone: [facility] 11-29-2023 13:37-0400 Systolic blood pressure 128 mm[Hg] Sanjeev Jessica DO Work Phone: [facility] 06-12-2023 10:05-0400 Body height 165.1 cm Rohit Metzger MD Work Phone: [facility] 06-12-2023 10:05-0400 Body mass index (BMI) [Ratio] 38.94 kg/m2 Rohit Metzger MD Work Phone: [facility] 06-12-2023 10:05-0400 Body weight 106.14 kg Rohit Metzger MD Work Phone: [facility] 05-16-2023 13:48-0500 Body height 165.1 cm Rohit Metzger MD Work Phone: [facility] 05-16-2023 13:48-0500 Body mass index (BMI) [Ratio] 38.94 kg/m2 Rohit Metzger MD Work Phone: [facility] 05-16-2023 13:48-0500 Body weight 106.14 kg Rohit Metzger MD Work Phone: [facility] 05-08-2023 13:10-0500 Body height 165.1 cm Jennie Colon [employer]IONAL SALES REPRESENTATIVE[employer] Work Phone: [facility] 05-08-2023 13:10-0500 Body mass index (BMI) [Ratio] 38.94 kg/m2 Jennie Colon REGIONAL SALES REPRESENTATIVE-[employer] OPERATOR Work Phone: [facility] 05-08-2023 13:10-0500 Body weight 106.14 kg Jennie Colon REGIONAL SALES REPRESENTATIVE-[employer] OPERATOR Work Phone: [facility] 05-08-2023 13:10-0500 Diastolic blood pressure 72 mm[Hg] Jennie Colon REGIONAL SALES REPRESENTATIVE-[employer] OPERATOR Work Phone: [facility] 05-08-2023 13:10-0500 Heart rate 99 /min Jennie Colon REGIONAL SALES REPRESENTATIVE-[employer] OPERATOR Work Phone: [facility] 05-08-2023 13:10-0500 Systolic blood pressure 124 mm[Hg] Jennie Colon REGIONAL SALES REPRESENTATIVE-[employer] CELLS OPERATOR Work Phone: [employer] 04-14-2023 11:43-0500 Diastolic blood pressure 97 mm[Hg] Kal Martinez REGIONAL SALES REPRESENTATIVE-CHLORINE CELLS OPERATOR Work Phone: [employer] Comment on above: . 04-14-2023 11:43-0500 Systolic blood pressure 133 mm[Hg] Kal Martinez REGIONAL SALES REPRESENTATIVE-CHLORINE CELLS OPERATOR Work Phone: [employer] Comment on above: . 04-14-2023 11:38-0500 Body mass index (BMI) [Ratio] 39.01 kg/m2 Kal Martinez REGIONAL SALES REPRESENTATIVE-CHLORINE CELLS OPERATOR Work Phone: [employer] 04-14-2023 11:38-0500 Body temperature 98.6 [degF] Kal Yuer REGIONAL SALES REPRESENTATIVE-CHLORINE CELLS OPERATOR Work Phone: [employer] 04-14-2023 11:38-0500 Body weight 106.32 kg Kal Martinez REGIONAL SALES REPRESENTATIVE-CHLORINE CELLS OPERATOR Work Phone: [employer] 04-14-2023 11:38-0500 Heart rate 92 /min Kal Martinez REGIONAL SALES REPRESENTATIVE-CHLORINE CELLS OPERATOR Work Phone: [employer] 04-14-2023 11:38-0500 Respiratory rate 14 /min Kal Martinez REGIONAL SALES REPRESENTATIVE-CHLORINE CELLS OPERATOR Work Phone: [employer] 04-14-2023 11:38-0500 SaO2% (BldA) [Mass fraction] 100 % Kal Martinez REGIONAL SALES REPRESENTATIVE-CHLORINE CELLS OPERATOR Work Phone: [employer] 01-02-2023 10:00-0400 Body height 162.56 cm Johnathon Winter Other [employer] Other 01-02-2023 10:00-0400 Body mass index (BMI) [Ratio] 42.91 kg/m2 Johnathon Winter Other [employer] Other 01-02-2023 10:00-0400 Body weight 113.4 kg Johnathon Winter Other [employer] Other 01-02-2023 10:00-0400 Diastolic blood pressure 82 mm[Hg] Johnathon Winter Other [employer] Other 01-02-2023 10:00-0400 Systolic blood pressure 126 mm[Hg] Johnathon Winter Other [employer] Other 2022 11:00-0400 Body height 162.56 cm Johnathon Winter Other [employer] Other 2022 11:00-0400 Body mass index (BMI) [Ratio] 44.56 kg/m2 Johnathon Winter Other [employer] Other 2022 11:00-0400 Body weight 117.75 kg Johnathon Winter Other [employer] Other 2022 11:00-0400 Diastolic blood pressure 101 mm[Hg] Johnathon Winter Other [employer] Other 2022 11:00-0400 SaO2% (BldA) [Mass fraction] 100 % Johnathon Winter Other [employer] Other 2022 11:00-0400 Systolic blood pressure 138 mm[Hg] Johnathon Winter Other [employer] Other 10-11-2022 18:45-0400 Body height 165.1 cm Roxie Garcia MD Work Phone: [facility] 10-11-2022 18:45-0400 Body mass index (BMI) [Ratio] 43.93 kg/m2 Roxie Garcia MD Work Phone: [employer] 10-11-2022 18:45-0400 Body temperature 99 [degF] Roxie Garcia MD Work Phone: [facility] [employer] 10-11-2022 18:45-0400 Body weight 119.75 kg Roxie Garcia MD Work Phone: [facility] [employer] 10-11-2022 18:45-0400 Diastolic blood pressure 108 mm[Hg] Roxie Garcia MD Work Phone: [facility] [employer] 10-11-2022 18:45-0400 Heart rate 87 /min Roxie Garcia MD Work Phone: [facility] [employer] 10-11-2022 18:45-0400 Respiratory rate 16 /min Roxie Garcia MD Work Phone: [facility] [employer] 10-11-2022 18:45-0400 SaO2% (BldA) [Mass fraction] 98 % Roxie Garcia MD Work Phone: [facility] [employer] 10-11-2022 18:45-0400 Systolic blood pressure 160 mm[Hg] Roxie Garica MD Work Phone: [facility] [employer] 01-03-2022 13:54-0400 Diastolic blood pressure 95 mm[Hg] Teo Thomas DO [employer] 01-03-2022 13:54-0400 Heart rate 61 /min Teo Agueroan DO [employer] 01-03-2022 13:54-0400 SaO2% (BldA) [Mass fraction] 100 % Teo Thomas DO [employer] 01-03-2022 13:54-0400 Systolic blood pressure 142 mm[Hg] Teo Agueroan DO [employer] 01-03-2022 11:46-0400 Body height 165.1 cm Teo Thomas DO [employer] 01-03-2022 11:46-0400 Body mass index (BMI) [Ratio] 44.1 kg/m2 Teo Thomas DO [employer] [facility] [employer] [facility] [employer] 01-03-2022 11:46-0400 Body temperature 97.7 [degF] [facility] 01-03-2022 11:46-0400 Body weight 120.2 kg Teo [facility]eroan [facility] [employer] 01-03-2022 11:46-0400 Respiratory rate 16 /min Teo Froylanfman DO [facility] 08-19-2021 18:03-0400 Diastolic blood pressure 98 mm[Hg] Radha Sanders MD Work Phone: [facility] [employer] 08-19-2021 18:03-0400 Heart rate 92 /min Radha Sanders MD Work Phone: [facility] [employer] 08-19-2021 18:03-0400 Respiratory rate 16 /min Radha Sanders MD Work Phone: [facility] [employer] 08-19-2021 18:03-0400 SaO2% (BldA) [Mass fraction] 96 % Radha Sanders MD Work Phone: [facility] [employer] 08-19-2021 18:03-0400 Systolic blood pressure 145 mm[Hg] Radha Sanders MD Work Phone: [facility] [employer] 08-19-2021 16:28-0400 Body height 165.1 cm Radha Sanders MD Work Phone: [facility] [employer] 08-19-2021 16:28-0400 Body mass index (BMI) [Ratio] 45.76 kg/m2 Radha Sanders MD Work Phone: [facility] [employer] 08-19-2021 16:28-0400 Body temperature 98.6 [degF] Radha Sanders MD Work Phone: [employer] 08-19-2021 16:28-0400 Body weight 124.74 kg Radha Sanders [facility] Encoun[facility] Encounter Date Encounter Type Care Provider Facility Start: 01-06-2025 End: 01-06-2025 ambulatory Christiano Rivera MD Facility:[facility] Start: 01-03-2025 End: 01-03-2025 Orders Only Burt Kurtirene Meyer REGIONAL SALES REPRESENTATIVE-CHLORINE CELLS OPERATOR Work Phone: [facility] Start: 11-05-2024 End: 11-05-2024 Orders Only Burt Balderramahermilo REGIONAL SALES REPRESENTATIVE-CHLORINE CELLS OPERATOR Work Phone: [facility] Start: 10-29-2024 End: 10-29-2024 [employer]sheet Georgi S Rusher DPM Work Phone: [facility] Start: 10-29-2024 End: 10-29-2024 Bamboo flowsheet Georgi S Rusher DPM Work Phone: [facility] Start: 10-29-2024 End: 10-29-2024 Postop follow up visit related to original px Georgi S Rusher DPM Work Phone: [facility] Comment on above: S/P foot surgery (Pr imary Dx); Left foot pain Start: 10-29-2024 End: 10-29-2024 ambulatory GEORGI S RUSHER Not Available Start: 10-21-2024 End: 10-21-2024 ambulatory BURTJOY LEHMAN [facility] Start: 09-17-2024 End: 09-17-2024 Bamboo flowsheet Georgi S Rusher DPM Work Phone: [facility] Start: 09-17-2024 End: 09-17-2024 Bamboo flowsheet Georgi S Rusher DPM Work Phone: [facility] Start: 09-17-2024 End: 09-17-2024 Postop follow up visit related to original px Georgi S Rusher DPM Work Phone: [facility] Comment on above: S/P foot surgery (Pr imary Dx); Left foot pain Start: 09-17-2024 End: 09-17-2024 ambulatory GEORGI S RUSHER Not Available Start: 09-04-2024 End: 09-04-2024 Bamboo flowsheet Georgi Carreon DPM Work Phone: [facility] Start: 09-04-2024 End: 09-04-2024 Bamboo flowsheet Georgi Carreon DPM Work Phone: [facility] Start: 09-04-2024 End: 09-04-2024 Postop follow up visit related to original px Georgi Carreon DPM Work Phone: [facility] Comment on above: S/P foot surgery (Pr imary Dx); Left foot pain Start: 09-04-2024 End: 09-04-2024 ambulatory GEORGI Whitney MARIA DEL ROSARIO Not Available Start: 09-02-2024 End: 09-02-2024 ambulatory BURT LEHMAN [facility] Start: 08-21-2024 End: 08-21-2024 Bamboo flowsheet Georgi Carreon DPM Work Phone: [facility] Start: 08-21-2024 End: 08-21-2024 Bamboo flowsheet Georgi Carreon DPM Work Phone: [facility] Start: 08-21-2024 End: 08-21-2024 Postop follow up visit related to original px Georgi Carreon DPM Work Phone: [facility] Comment on above: S/P foot surgery (Pr imary Dx); Left foot pain; Difficulty walking; Instability of left ankle joint Start: 08-21-2024 End: 08-21-2024 ambulatory GEORGI CARREON Not Available Start: 08-08-2024 End: 08-08-2024 Evaluation and management of inpatient GEORGI CARREON [facility] Start: 08-06-2024 End: 08-06-2024 ambulatory [facility] Start: 08-05-2024 End: 08-05-2024 ambulatory [facility] Start: 08-05-2024 End: 08-05-2024 Encounter for preprocedural cardiovascular examination [facility] Start: 07-31-2024 End: 07-31-2024 Patient encounter procedure [facility] Pre-Admission Testing 2 [facility] - Pre Ad[facility] Comment on above: Preop examination (P rimary Dx); Hypertension, unspecified type Start: 07-31-2024 End: 07-31-2024 Preprocedural examination done Pm 2 [facility] Start: 07-31-2024 End: 07-31-2024 [employer] Georgi Carreon DPM Work Phone: [facility] Start: 07-31-2024 End: 07-31-2024 [employer] Georgi Carreon DPM Work Phone: [facility] Start: 07-31-2024 Encounter for other preprocedural examination JUDI ORTEGA 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 Start: 07-31-2024 End: 07-31-[address] [facility] Start: 07-29-2024 End: 07-29-[address] [facility] Work Phone: Start: 07-29-2024 End: 07-29-2024 Patient encounter procedure [facility] Work Phone: Start: 07-22-2024 End: 07-22-2024 Patient encounter procedure Sanjeev Lopez DO Work Phone: [facility] Work Phone: Start: 07-22-2024 End: 07-22-2024 Periodic preventive med est patient 40-64yrs Sanjeev Jessica DO Work Phone: [facility] Comment on above: Well woman exam with routine gynecological exam; Breast cancer screening by mammogram Start: 07-22-2024 Non-patient / Non-visit [facility] Work Phone: Start: 07-22-2024 End: 07-22-2024 Bamboo flowsheet Sanjeev Jessica DO Work Phone: [facility] Start: 07-22-2024 End: 07-25-2024 Bamboo flowsheet Sanjeev Jessica DO Work Phone: [facility] Start: 07-22-2024 End: 07-25-2024 Clinisync Result Encounter Sanjeev Jessica DO Work Phone: [facility] External Department Unsolicited Start: 07-22-2024 End: 07-22-2024 ambulatory SANJEEV JESSICA Not Available Start: 07-17-2024 End: 07-17-2024 ambulatory [place] [facility] Start: 07-17-2024 End: 07-17-2024 [facility] Start: 07-16-2024 End: 07-16-2024 Bamboo flowsheet Georgi Carreon DPM Work Phone: [facility] Start: 07-16-2024 End: 07-16-2024 Bamboo flowsheet Georgi Carreon DPM Work Phone: [facility] Start: 07-16-2024 End: 07-16-2024 Office outpatient visit 25 minutes Georgi Carreon DPM Work Phone: [facility] Comment on above: Hallux valgus of lef t foot (Primary Dx); Instability of left foot joint; Tailor's bunion of left foot; Acquired deformity of left toe; 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; Equinus contracture of left ankle; Left foot pain; Vitamin D insufficiency Start: 07-16-2024 End: 07-16-2024 ambulatory GEORGI Whitney MARIA DEL ROSARIO Not Available Start: 07-08-2024 Non-patient / Non-visit [facility] Work Phone: Start: 07-03-2024 End: 07-03-2024 ambulatory [facility] Start: 06-28-2024 Emergency department patient visit Johnathon Winter Facility:[facility] Start: 05-29-2024 End: 05-29-2024 ambulatory [facility] Start: 05-17-2024 End: 05-17-[address] [facility] Work Phone: Start: 05-17-2024 End: 05-17-2024 Patient encounter procedure [facility] Work Phone: Start: 05-08-2024 End: 05-08-2024 ambulatory [facility] Start: 04-15-2024 Non-patient / Non-visit [facility] Work Phone: Start: 04-11-2024 Patient encounter status [facility] Start: 04-11-2024 End: 04-11-[address] [facility] Work Phone: Start: 04-11-2024 End: 04-11-2024 Encounter for general adult medical examination without abnormal findings [facility] Start: 04-11-2024 End: 04-11-2024 Patient encounter procedure [facility] Work Phone: Start: 04-08-2024 End: 04-08-2024 ambulatory [facility] Start: 04-01-2024 End: 04-01-2024 Clinisync Result Encounter Sanjeev Lopez DO Work Phone: [facility] External Department Unsolicited Start: 04-01-2024 End: 04-01-2024 Clinisync Result Encounter Sanjeev Jessica DO Work Phone: [facility] External Department Unsolicited Start: 04-01-2024 Non-patient / Non-visit [facility] Work Phone: Start: 03-22-2024 End: 03-22-2024 Documentation procedure Caitlyn Carter [facility] Start: 02-26-2024 End: [...] Not Available Start: 01-30-2024 Non-patient / Non-visit [facility] Work Phone: Start: 01-26-2024 End: 01-26-2024 Orders Only Alfonso Liang MD Work Phone: [facility] Start: 01-26-2024 End: 01-26-2024 Evaluation and management of inpatient FIDEL YUER [facility] Start: 01-25-2024 End: 01-26-2024 ambulatory [facility] Start: 01-19-2024 Non-patient / Non-visit [facility] Work Phone: Start: 01-18-2024 End: 01-18-2024 Admission to [facility] Phone Call Provider 3 Tom Issa [facility] On [facility] Start: 01-18-2024 End: 01-18-2024 Evaluation and management of inpatient JOHNATHON WINTER [facility] Start: 01-14-2024 Non-patient / Non-visit [facility] Work Phone: Start: 01-14-2024 End: 01-14-2024 Emergency department patient visit [facility] Facility:[facility] Start: 01-03-2024 End: 01-03-2024 Bamboo [...] Start: 01-03-2024 End: 01-03-2024 ambulatory [facility] Start: 12-28-2023 End: 12-29-2023 Clinisync Result Encounter [...] Departed Referred DO Sanjeev Jessica Work Phone: [facility] [place] Work Phone: Start: 12-06-2023 End: 12-06-2023 Patient encounter procedure Sanjeev Jessica DO Work Phone: [facility] Comment on above: Pre-op examination; Menorrhagia with regular cycle; Abnormal uterine bleeding (AUB); Pelvic pain; Hormone disorder Start: 12-06-2023 End: 12-06-2023 Preprocedural examination done Sanjeev Jessica DO Work Phone: [facility] Start: 12-06-2023 End: 12-06-2023 ambulatory Sanjeevbenji Suggso [facility] Work Phone: Start: 11-29-2023 Non-patient / Non-visit DO Cor ey Jessica Work Phone: [facility] Work Phone: Start: 11-29-2023 [...] Available Start: 11-22-2023 End: 11-22-[address] [facility] Start: 10-25-2023 Non-patient / Non-visit DO Bert Lopez Work Phone: [facility] Work Phone: Start: 08-23-2023 End: 08-23-2023 ambulatory Johnathon Thompson Winter Facility:[facility] Start: 06-12-2023 End: 06-12-2023 ambulatory [facility] Comment on above: Lumbar radiculopathy , chronic (Primary Dx); Herniated lumbar intervertebral disc Start: 06-12-2023 End: 06-12-2023 Office outpatient visit 10 minutes Rohit Smith MD [facility] Comment on above: 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) Start: 05-24-2023 Orders Only Jennie barlow REGIONAL SALES REPRESENTATIVE-CHLORINE CELLS OPERATOR Work Phone: [facility] Comment on above: Herniated lumbar int ervertebral disc (Primary Dx); Lumbar radiculopathy, chronic Start: 05-23-2023 End: 05-23-2023 ambulatory Tee Peterson [facility] Work Phone: Start: 05-23-2023 End: 05-23-2023 Departed Referred MD Tee Peterson Work Phone: [facility] Start: 05-16-2023 End: 05-16-2023 ambulatory [facility] Start: 05-16-2023 End: 05-16-2023 Office outpatient new 30 minutes Rohit Smith MD Work [facility]: [facility] Comment on above: 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 Other Start: 05-10-2023 Encounter by kriss Winter [facility] Start: 05-10-2023 Non-patient / Non-visit MD Jones Work Phone: [facility] Work Phone: Start: 05-08-2023 End: 05-08-2023 Office outpatient new 45 minutes Jennie Colon REGIONAL SALES REPRESENTATIVE-CHLORINE CELLS OPERATOR Work Phone: [facility] Comment on above: Lumbar radiculopathy , chronic (Primary Dx); Urinary incontinence without sensory awareness; Sensory deficit, left; Spinal stenosis of lumbar region with neurogenic claudication Start: 05-04-2023 End: 05-04-2023 Office outpatient visit 10 minutes Everett Okeefe NP Work Phone: [facility] Comment on above: 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); Pain in finger of right hand Start: 04-19-2023 End: 04-19-2023 ambulatory Scottie Riki Other [employer] Other Start: 04-19-2023 Telephone encounter Scottie Lyn [facility] Start: 04-14-2023 End: 04-14-2023 ambulatory JOHNATHON WINTER [facility] Comment on above: Back pain, unspecifi ed back location, unspecified back pain laterality, unspecified chronicity (Primary Dx) Start: 04-14-2023 End: 04-14-2023 Office outpatient visit 15 minutes Kal Martinez REGIONAL SALES REPRESENTATIVE-CHLORINE CELLS OPERATOR Work Phone: [facility] [place] Comment on above: Acute left-sided low back pain with left-sided sciatica (Primary Dx) Start: 04-12-2023 End: 04-12-2023 ambulatory Johnathon Winter Other [employer] Other Start: 04-12-2023 Telephone encounter Johnathon Winter [facility] Start: 04-11-2023 End: 04-11-2023 ambulatory Johnathon Winter Other [employer] Other Start: 04-11-2023 Telephone encounter Johnathon Winter [facility] Start: 04-10-2023 End: 04-10-2023 ambulatory Johnathon Winter Other [employer] Other Start: 04-10-2023 Encounter by kriss burgos Johnathon Winter [facility] Start: 01-30-2023 End: 01-30-2023 ambulatory Johnathon Winter Other [employer] Other Start: 01-30-2023 Telephone encounter Johnathon Winter [facility] Start: 01-02-2023 End: 01-02-2023 ambulatory Johnathon Winter Other [employer] Other Start: 01-02-2023 Office outpatient vi sit 15 minutes Johnathon Winter [facility] Start: 12-09-2022 End: 12-09-2022 ambulatory Johnathon Winter Other [employer] Other Start: 12-09-2022 Telephone encounter Johnathon Winter [facility] Start: 12-08-2022 End: 12-08-2022 ambulatory Johnathon Winter Other [employer] Other Start: 12-08-2022 Telephone encounter Johnathon Winter [facility] Start: 2022 End: 2022 ambulatory Johnathon Winter Other [employer] Other Start: 2022 Office outpatient ne w 30 minutes Johnathon Winter [facility] Start: 10-11-2022 End: 10-11-2022 Emergency department patient visit JOHNATHON WINTER [facility] Start: 10-11-2022 End: 10-11-2022 Emergency department patient visit Roxie Garcia MD Work Phone: [facility] Comment on above: Sprain of right ankl e, unspecified ligament, initial encounter (Primary Dx) Start: 07-11-2022 End: 07-11-[address] SANJEEV LOPEZ . Facility:[facility] Start: 04-29-2022 End: 04-30-[address] SANJEEV LOPEZ . Facility:[facility] Start: 02-16-2022 End: 02-16-2022 Emergency department patient visit JOHNATHON WINTER [facility] Start: 01-03-2022 End: 01-03-2022 Emergency department patient visit JOHNATHON WINTER [facility] Start: 01-03-2022 End: 01-03-2022 Emergency department patient visit Teo Mina Thomas DO [facility] ED Comment on above: Gastroenteritis (Neetu emil Dx) Start: 08-19-2021 End: 08-19-2021 Emergency department patient visit Radha Sanders MD Work Phone: [facility] Comment on above: Herniated lumbar [...] [Identifier] in Cervix by Cyto stain Burt Andrestheodore REGIONAL SALES REPRESENTATIVE-CHLORINE CELLS OPERATOR Work Phone: Start: 07-16-2024 Radex foot complete minimum 3 views Georgi Carreon DPM Work Phone: Start: 04-01-2024 MLR HEMOGLOBIN [...] Start: 06-12-2023 Follow-up visit Follow-up ROHIT FRIASHTNHAN V Start: 10-11-2022 Radex ankle complete minimum 3 views Bailee Lew REGIONAL SALES REPRESENTATIVE - CHLORINE CELLS OPERATOR Work Phone: Start: 01-03-2022 Urinalysis microscopic only Zachariah Foster REGIONAL SALES REPRESENTATIVE - ROD W[employer] Work Phone: Start: 01-03-2022 Urnls dip stick/tabl et rgnt auto w/o microscopy Zachariah Foster REGIONAL SALES REPRESENTATIVE - ROD WELDER Work Phone: Start: 01-03-2022 Ct abdomen & pelvis w/contrast material Zachariah Foster REGIONAL SALES REPRESENTATIVE - ROD WELDER Work Phone: Start: 01-03-2022 Assay of lipase Zachariah Foster REGIONAL SALES REPRESENTATIVE - ROD WELDER Work Phone: Start: 12-01-2021 Adult depression scr eening assessment Serina ALVARADO Start: 08-19-2021 Ct lumbar spine w/o contrast material Radha Sanders MD Work Phone: Plan of Treatment Date Care Activity Detail Author Start: 07-23-2027 Screening for malignant neoplasm of cervix Pap Smear [facility] Start: 10-21-2025 Tobacco Screening Tobacco Screening [facility] Start: 08-08-2025 Adult BMI Screening Adult BMI Screening [facility] Start: 07-31-2025 Adult BMI Screening Adult BMI Screening [facility] Start: 07-31-2025 Tobacco Screening Tobacco Screening [facility] Start: 07-29-2025 End: 07-29-2025 [facility] Start: 01-29-2025 End: 01-29-2025 Patient encounter procedure 01/29/2025 9:00 AM EDT Office Visit [facility] [address] [place] [id number] Georgi Carreon DPM [address] [place] [address] [facility] Start: 01-25-2025 Adult BMI Screening Adult BMI Screening [facility] Start: 01-25-2025 Tobacco Screening Tobacco Screening [facility] Start: 01-17-2025 Adult BMI Screening Adult BMI Screening [facility] Start: 01-02-2025 Tobacco Screening Tobacco Screening [facility] Start: 12-02-2024 Influenza vaccination Influenza Vaccine [facility] Start: 10-29-2024 End: 10-29-2024 Patient encounter procedure [facility] Comment on above: Arrived Start: 09-18-2024 End: 09-18-2024 Patient encounter procedure 09/18/2024 1:15 PM EDT Office Visit [facility] [address] [place] [address] Georgi Carreon DPM [address] [place], [place] [id number] [facility] Start: 09-17-2024 End: 09-17-2024 Patient encounter procedure 09/17/2024 9:45 AM EDT Office Visit [facility] [address] [place] [place] [phone] Georgi Carreon DPM [address] [place] [address] Arrived [facility] Comment on above: Arrived Start: 09-04-2024 End: 09-04-2024 Patient encounter procedure [facility] Comment on above: Arrived Start: 08-21-2024 End: 08-21-2024 Patient encounter procedure [facility] Comment on above: Arrived Start: 08-08-2024 End: 08-08-2024 Admission to same day surgery center 08/08/2024 7:30 AM EDT - 08/08/2024 10:30 AM EDT Surgery [facility] - Surgery [address] [place] [phone] Georgi Carreon DPM [address] [place] [address] FUSION LAPIDUS & CPT 78535 [88404 (CPT )] [facility] Surgery Comment on above: FUSION LAPIDUS & CPT 28319 [26744 (CPT ) ] Start: 08-08-2024 End: 08-08-2024 Corrj hallux valgus w/sesmdc w/1metar medial cnf FUSION LAPIDUS left foot hallux valgus, deformity of 2nd & 5th metatarsal, acquired deformity of toe, equinus contracture, 5th metatarsal tailors bunion 08/08/2024 7:30 AM EDT [facility] Start: 08-08-2024 End: 08-08-2024 Gastrocnemius recession REPAIR MUSCLE RECESSION GASTROCNEMIUS left foot hallux valgus, deformity of 2nd & 5th metatarsal, acquired deformity of toe, equinus contracture, 5th metatarsal tailors bunion 08/08/2024 7:30 AM EDT [facility] Start: 08-08-2024 End: 08-08-2024 Osteot w/wo lngth shrt/corrj metar xcp 1st ea OSTEOTOMY JENNIFER METATARSAL left foot hallux valgus, deformity of 2nd & 5th metatarsal, acquired deformity of toe, equinus contracture, 5th metatarsal tailors bunion 08/08/2024 7:30 AM EDT [facility] Start: 08-08-2024 End: 08-08-2024 Rcnstj angular dfrm toe soft tiss px only EXCISION SOFT TISSUE FOOT left foot hallux valgus, deformity of 2nd & 5th metatarsal, acquired deformity of toe, equinus contracture, 5th metatarsal tailors bunion 08/08/2024 7:30 AM EDT [facility] Start: 08-08-2024 Subsequent hospital visit by physician 08/08/2024 7:30 AM EDT Hospital Encounter [facility] - Surgery [address] [place] [address] Georgi Carreon, DPM [address] [place] [address] [facility] Start: 07-31-2024 End: 07-31-2024 Patient encounter procedure [facility] Comment on above: Arrived Start: 07-22-2024 End: 07-22-2024 Patient encounter procedure [facility] Comment on above: Arrived Start: 07-22-2024 End: 09-21-2025 MG Breast - bilateral Screening Bilateral screening mammogram Imaging Routine Breast cancer screening by mammogram Expected: 07/22/2024 (Approximate), Expires: 09/21/2025 [facility] Comment on above: Expected: 07/22/2024 (Approximate), Expi res: 09/21/2025 Start: 07-16-2024 End: 07-16-2024 Patient encounter procedure 07/16/2024 9:00 AM EDT Office Visit [facility] [address] [place] [place] [phone] Georgi Carreon, DPM [address] [place], [place] [id number] Arrived [facility] Comment on above: Arrived Start: 06-11-2024 Adult BMI Screening Adult BMI Screening [facility] Start: 06-11-2024 Tobacco Screening Tobacco Screening [facility] Start: 05-16-2024 Adult BMI Screening Adult BMI Screening [facility] Start: 05-16-2024 Tobacco Screening Tobacco Screening [facility] Start: 05-08-2024 Adult BMI Screening Adult BMI Screening [facility] Start: 05-08-2024 Tobacco Screening Tobacco Screening [facility] Start: 04-14-2024 Adult BMI Screening Adult BMI Screening [facility] Start: 04-14-2024 Tobacco Screening Tobacco Screening [facility] Start: 02-26-2024 End: 04-27-2025 MG Breast - bilateral Diagnostic Bilateral diagnostic mammogram Imaging Routine Breast pain Expected: 02/26/2024 (Approximate), Expires: 04/27/2025 [facility] Work Phone: Comment on above: Expected: 02/26/2024 (Approximate), Expi res: 04/27/2025 Start: 02-26-2024 End: 02-26-2024 Patient encounter procedure 02/26/2024 10:00 AM EST Office Visit [facility] [address] [place] [address] Sanjeev Lopez DO [address] [place] [address] Arrived [facility] Comment on above: Arrived Start: 01-25-2024 End: 01-25-2024 Admission to same day surgery center 01/25/2024 10:00 AM EDT - 01/25/2024 1:59 PM EDT Surgery [facility] - Surgery [address] [place] [phone] [facility], [facility], [address] [place] [address] PANNICULECTOMY [facility] - Surgery Comment on above: PANNICULECTOMY Start: 01-25-2024 End: 01-25-2024 PANNICULECTOMY PANNICULECTOMY Panniculitis affecting regions of neck and back, site unspecified 01/25/2024 10:00 AM EDT [facility] Start: 01-25-2024 Subsequent hospital visit by physician 01/25/2024 10:00 AM EDT Hospital Encounter [facility] Surgery [address] [place] [address] [facility], [address] [facility] [facility], [address] [place] [address] [facility] - Surgery Start: 01-03-2024 End: 01-03-2024 Patient encounter procedure [facility] Comment on above: Arrived Start: 12-22-2023 End: 12-22-2023 Patient encounter procedure 12/22/2023 10:00 AM EDT Procedure Visit [facility] Sanjeev Lopez, [address] [place] [address] [facility] Start: 12-06-2023 End: 12-05-2024 [...] Visit [facility] [address] [place] [phone] Sanjeev Lopez, [place] [place] [address] [facility] Start: 12-03-2023 Influenza vaccination Influenza Vaccine [facility] Start: 11-29-2023 End: 11-28-2024 DHEA-sulfate DHEA-sulfate Lab Routine Decreased libido Expected: 11/29/2023 (Approximate), Expires: 11/28/2024 [facility] Comment on above: Expected: 11/29/2023 (Approximate), Expi res: 11/28/2024 Start: 11-29-2023 End: 11-29-2023 Patient encounter procedure 11/29/2023 1:50 PM EDT Office Visit [facility] [place] [place] [address] Sanjeev Lopez, [address] [place] [address] Arrived [facility] Comment on above: Arrived Start: 07-19-2023 End: 07-19-2023 Patient encounter procedure 07/19/2023 1:45 PM EDT Office Visit [facility] [address] [facility] [address] [place] [address] Vishal Martin, [address] [facility] [address] [place] [address] [facility] Start: 07-17-2023 End: 07-17-2023 Patient encounter procedure 07/17/2023 10:00 AM EDT Office Visit [facility] [address] [place] [phone] Sanjeev Lopez, [place] [facility] [place] [address] [facility] Start: 06-12-2023 End: 06-12-2023 Patient encounter procedure 06/12/2023 10:05 AM EDT Office Visit [facility] [address] [place] [address] Rohit Smith MD [address] [place] [address] [facility] Start: 05-19-2023 End: 05-19-2023 Patient encounter procedure 05/19/2023 10:15 AM EST Appointment [facility] - MRI Imaging [address] [place] [phone] [facility] Start: 05-16-2023 End: 05-16-2023 Patient encounter procedure 05/16/2023 1:45 PM EST Office Visit [facility] [address] [facility] [address] [place] [address] Rohit Smith MD [address] [place] [place] [address] [facility] [...] Spine Care [address] [place] [address] Jennie Colon, REGIONAL SALES REPRESENTATIVE-CHLORINE CELLS OPERATOR [address] [facility] [address] [place] [address] [facility] Start: 04-14-2023 End: 04-14-2024 XR Lumbar spine Views W flexion and W extension X-ray spine lumbar ap, lateral, flexion and extension only Imaging Routine Back pain, unspecified back location, unspecified back pain laterality, unspecified chronicity Expected: 04/14/2023, Expires: 04/14/2024 [facility] Work Phone: Comment on above: Expected: 04/14/2023, Expires: Start: 12-02-2022 Influenza vaccination Influenza Vaccine [facility] Start: 12-01-2022 Depression Screening Depression Screening [facility] Start: 11-01-2022 Influenza vaccination Flu vaccine (#1) [facility] Start: 09-03-2022 Adult BMI Follow Up Plan Adult BMI Follow Up Plan [facility] Start: 12-02-2021 Influenza vaccination Flu vaccine (Season Ended) [facility] Start: 11-01-2021 Influenza vaccination Flu vaccine (#1) [facility] Start: 2017 Diabetes screen Diabetes screen [facility] Start: 2012 Screening for malignant neoplasm of cervix [facility] Start: 12-01-2003 Screening for malignant neoplasm of cervix Pap smear [facility] Start: 2001 DTaP,Tdap and Td Vaccines (1 - Tdap) DTaP,Tdap and Td Vaccines (1 - Tdap) [facility] Start: 2001 DTaP/Tdap/Td vaccine (1 - Tdap) DTaP/Tdap/Td vaccine (1 - Tdap) [facility] Start: 2000 Adult BMI Follow Up Plan Adult BMI Follow Up Plan [facility] Start: 2000 Hepatitis C screening Hepatitis C screen [facility] Start: 1994 Depression Screen Depression Screen [facility] Start: 1994 Depression Screening Depression Screening [facility] Start: 12-01-1987 COVID-19 Vaccine (1) COVID-19 Vaccine (1) [facility] Start: 12-01-1983 Varicella vaccine (1 of 2 - 2-dose childhood series) Varicella vaccine (1 of 2 - 2-dose childhood series) [facility] Start: 06-01-1983 COVID-19 Vaccine (#1) COVID-19 Vaccine (#1) [facility] Endometrial biopsy Endometrial b iopsy Procedures Routine Menorrhagia with regular cycle Abnormal uterine bleeding (AUB) Pelvic pain Ordered: 12/06/2023 [facility] Work Phone: Comment on above: Ordered: 12/06/2023 Estradiol Estradiol Lab Ro utine Hormone disorder Ordered: 12/06/2023 [facility] Comment on above: Ordered: 12/06/2023 Estrone Estrone Lab Rout ine Hormone disorder Ordered: 12/06/2023 [facility] Comment on above: Ordered: 12/06/2023 Ferritin [Mass/volum e] in Serum or Plasma Ferritin Lab Routine Hormone disorder Ordered: 12/06/2023 [facility] Comment on above: Ordered: 12/06/2023 Hemoglobin A1c/Hemoglobin.total in Blood Hemoglobin A1c Lab Routine Hormone disorder Ordered: 12/06/2023 [facility] Comment on above: Ordered: 12/06/2023 Progesterone Progesterone Lab Routine Hormone disorder Ordered: 12/06/2023 [facility] Comment on above: Ordered: 12/06/2023 Sex hormone binding globulin Sex hormone binding globulin Lab Routine Decreased libido Ordered: 11/29/2023 [facility] Comment on above: Ordered: 11/29/2023 T3, reverse T3, reverse Lab Routine Hormone disorder Ordered: 12/06/2023 [facility] Comment on above: Ordered: 12/06/2023 TESTOSTERONE, FREE TESTOSTERONE, FREE Lab Routine Decreased libido Ordered: 11/29/2023 [facility] Work Phone: Comment on above: Ordered: 11/29/2023 Testosterone, free, total Testos terone, free, total Lab Routine Decreased libido Ordered: 11/29/2023 [facility] Comment on above: Ordered: 11/29/2023 Testosterone, free, total Testos terone, free, total Lab Routine Hormone disorder Ordered: 12/06/2023 [facility] Comment on above: Ordered: 12/06/2023 THIN PREP TIS PAP AN D HR HPV DNA THIN PREP TIS PAP AND HR HPV DNA Pathology and Cytology Routine Well woman exam with routine gynecological exam Ordered: 07/22/2024 [facility] Work Phone: Comment on above: Ordered: 07/22/2024 Thyroid peroxidase antibody Thyroid peroxidase antibody Lab Routine Hormone disorder Ordered: 12/06/2023 [facility] Comment on above: Ordered: 12/06/2023 Thyroxine (T4) free [Mass/volume] in Serum or Plasma T4, free Lab Routine Hormone disorder Ordered: 12/06/2023 [facility] Comment on above: Ordered: 12/06/2023 Triiodothyronine (T3 ) Free [Mass/volume] in Serum or Plasma T3, free Lab Routine Hormone disorder Ordered: 12/06/2023 [facility] Comment on above: Ordered: 12/06/2023 Vitamin D 1,25 dihydroxy Vitamin D 1,25 dihydroxy Lab Routine Hormone disorder Ordered: 12/06/2023 [facility] Comment on above: Ordered: 12/06/2023 Vitamin D 1,25 dihydroxy Vitamin D 1,25 dihydroxy Lab Routine Vitamin D insufficiency Ordered: 07/16/2024 [facility] [employer] Work Phone: Comment on above: Ordered: 07/16/2024 [facility] Payers Date Payer Category Payer Unknown [id number] 2023 Self-pay 2022 Blue Cross Blue Shield [id number] 2022 Blue Cross Blue Shie Managed Care - PPO [id number] 2022 Unknown [id number]. 1.13.693.2.7.3.6786 71.315 2022 Unknown [id number] 2020 Unknown [id number] 1.2.840.112992.1.13.239.2.7.3.6786 71.315 1982 Unknown [id number] 2.840.1.604239.3.579.2.593 1982 Unknown [id number] 2840.1.785131.3.579.2.593 1982 Unknown [id number] 2.840.1.907317.3.579.2.175 1982 Unknown [id number] 2.840.1.211870.3.579.2.175 1982 Unknown [id number] 840.1.989505.3.579.2.175 1982 Unknown [id number] .1.904794.3.579.2.1285 1982 Unknown [id number] 05.19.830.1.667126.3.579.2.1285 1982 Unknown [id number] 05.19.830.1.362619.3.579.2.1285 1982 Unknown [id number] .1.100958.3.579.2.1285 1982 Unknown [id number] .1.456659.3.579.2.1285 1982 Unknown [id number] .1.090913.3.579.2.1285 1982 Unknown [id number] 840.1.612792.3.579.2.1285 1982 Unknown [id number] 840.1.874806.3.579.2. 1982 Unknown [id number] 840.1.263671.3.579.2. 1982 Unknown [id number] 840.1.579554.3.579.2. 1982 Unknown [id number] 840.1.843281.3.579.2.1285 1982 Unknown [id number] 05.19.830.1.143181.3.579.2.1285 1982 Unknown [id number] 05.19.830.1.553410.3.579.2.1285 1982 Unknown [id number] 05.19.830.1.674242.3.579.2.1285 1982 Unknown [id number] 05.19.830.1.726090.3.579.2.1285 1982 Unknown [id number] 05.19.830.1.183855.3.579.2.1285 1982 Unknown [id number] .1.181167.3.579.2.1285 1982 Unknown [id number] .1.623690.3.579.2.1285 1982 Unknown [id number] .1.032628.3.579.2.1285 1982 Unknown [id number] .1.834685.3.579.2.1285 1982 Unknown [id number] .1.609614.3.579.2.1285 1982 Unknown [id number] .1.640037.3.579.2.1285 1982 Unknown [id number] .1.023343.3.579.2.1285 1982 Unknown [id number] .1.561886.3.579.2.1258 1982 Unknown [id number] 05.19.830.1.999165.3.579.2.1258 1982 Unknown [id number] 05.19.830.1.163770.3.579.2.1258 1982 Unknown [id number] 05.19.830.1.677820.3.579.2.9 1982 Unknown [id number] 2.16840.1.722861.3.579.2.1258 1982 Unknown [id number] 2.16840.1.858765.3.579.2.1258 1982 Unknown [id number] 2.16840.1.975205.3.579.2.1258 1982 Unknown [id number] 2.16840.1.003861.3.579.2.1258 1982 Unknown [id number] 2.840.1.412868.3.579.2.1258 1982 Unknown [id number] 2.840.1.417573.3.579.2.1258 1982 Unknown [id number] 2.840.1.597641.3.579.2.1258 1982 Unknown [id number] 2.840.1.479364.3.579.2.1258 1982 Unknown [id number] 2.840.1.892806.3.579.2.1258 1982 Unknown [id number] 2.840.1.999325.3.579.2.1258 1982 Unknown [id number] 2.840.1.774984.3.579.2.1258 1982 Unknown [id number] 2.840.1.665295.3.579.2.196 1959 Unknown [id number] Unknown [id number] 2840.1.946324.3.579.2.531 Social History Date Type Detail Facility Start: 06-15-2015 End: 03-31-2022 Tobacco smoking status ORIS Never smoked tobacco [employer] [employer] Start: 06-15-2015 End: 03-31-2022 Tobacco use and exposure Smokeless tobacco non-user [employer] Work Phone: Start: 08-19-2021 End: 10-21-2024 Alcohol intake Current non-drinker of alcohol (finding) [employer] Phone: Start: 05-14-2020 End: 08-19-2021 Alcohol intake [employer] Phone: Start: 06-15-2015 History SDOH Alcohol Comment rarely [employer] Phone: Start: 1980 [facility] Start: 08-09-2021 End: 01-03-2022 Exposure to SARS-CoV-2 (event) Not sure [employer] Phone: History of tobacco use Passive smoker [facility] [employer] Phone: Start: 05-14-2020 End: 05-04-2023 Sex Assigned At [employer] Other Start: 05-04-2023 End: 10-29-2024 Alcohol intake Ex-drinker (finding) [facility] Start: 10-09-2022 Alcohol Comment Alcohol: 1 or 2 drinks on typical day/monthly or less. Caffeine: 1-2 cups/day tea [facility] Start: 1980 Sex Assigned At Female N [facility] Start: 09-21-2022 Gender identity Identifies as female gender (finding) [facility] Start: 09-21-2022 Sexual orientation Heterosexual (fin ding) [facility] Has the [employer], gas, oil, or water avocarrot threatened to shut off services in your home in past 12Mo No [facility] Adolescent depressio n screening assessment 0 [facility] Start: 11-06-2014 End: 07-29-2024 Sex Female (finding) [facility] Tobacco smoking status NHIS Unknown if ever smoked [facility] Work Phone: NEGATED: Highlighted row [facility] Procedure Code Equipment Code Equipment Origin al Text Equipment Identifier Dates [id number], [id number], [id number] Start: 09-14-2023 End: 12-13-2023 Staple [id number] S tr Grt Wht Jaws Ntnl Bn Rpl [id number] - Sna - [id number] Start: 08-08-2024 Staple [id number] S tr Grt Wht Jaws Ntnl Bn Rpl [id number] - Sna - [id number] Start: 08-08-2024 Screw Bn 13mm 2m m Bite [address] [facility] Ns - Sna - [id number] Start: 08-08-2024 Screw Bn 10mm 2m m Hd Mn-Mnstr St Ns - [id number] Start: 08-08-2024 Goals Date Patient Goal Desired Activity /State Personal health goal Comment on above: Formatting of this n ote might be different from the original. Evaluation of progress towards goal: johns removal; pain management Clinical Notes 08-19-2021 to 10-29-2024 Georgi Carreon DPM - 10/29/2024 9:00 AM Cabrera Carreon DPM - 09/17/2024 9:45 AM Cabrera Carreon, NOE - 09/04/2024 8:30 AM EDTSmoira Nelson MA [...] Morbid obesity with BMI of 45.0-49.9, adult ([facility]) PCOS (polycystic ovarian syndrome) Pre-diabetes Rectal bleeding [...] each, Rfl: 3 Lancets (OneTouch Delica Plus [id number]) [facility], , Disp: , Rfl: losartan (Cozaar) 100 MG tablet, Take 100 mg by mouth Daily, Disp: , Rfl: metoprolol succinate XL (Toprol-XL) 50 MG 24 hr tablet, Take 50 mg by mouth 1 (one) time each day at the same time, Disp: , Rfl: MONOJECT 3CC SYRINGE 3 ML [facility], , Disp: , Rfl: Mounjaro 12.5 MG/0.5ML solution auto-injector, inject 0.5 milliliters UNDER THE SKIN ONCE WEEKLY, Disp: 2 mL, Rfl: 3 nystatin (Mycostatin) [id number] UNIT/GM powder, Apply topically 3 (three) times [...] Comments: Presents to clinic weight-bearing unassisted in [facility]. Accompanied by her . HENT: [...] Georgi Carreon DPM documented in this encounter [facility] 09-17-2024 History of Present illness Narrative Images [...] Morbid obesity with BMI of 45.0-49.9, adult ([facility]) PCOS (polycystic ovarian syndrome) Pre-diabetes Rectal bleeding Off and on since 2018 Weight gain Medications Current Outpatient Medications: Alcohol Swabs (B-D SINGLE USE SWABS REGULAR) pads, , Disp: , Rfl: amLODIPine (Norvasc) 10 MG tablet, Take 10 mg by mouth in the morning., Disp: , Rfl: Blood Glucose Monitoring Suppl (E-Diversify Yourself Glucometer) w/Device kit, 1 kit Daily Use [...] each, Rfl: 3 Lancets (OneTouch Delica Plus [id number]) [facility], , Disp: , Rfl: losartan (Cozaar) 100 MG tablet, Take 100 mg by mouth Daily, Disp: , Rfl: metoprolol succinate XL (Toprol-XL) 50 MG 24 hr tablet, Take 50 mg by mouth 1 (one) time each day at the same time, Disp: , Rfl: MONOJECT 3CC SYRINGE 3 ML [facility], , Disp: , Rfl: Mounjaro 12.5 MG/0.5ML [...] boot. Referral sent to [facility] [place]. I will follow up with her in [...] Georgi Carreon DPM documented in this encounter [facility] 09-04-2024 History of Present illness Narrative Images [...] Disp: , Rfl: Blood Glucose Monitoring Suppl (E-Diversify Yourself Glucometer) w/Device kit, 1 kit Daily Use [...] each, Rfl: 3 Lancets (OneTouch Delica Plus [id number]) [facility], , Disp: , Rfl: losartan (Cozaar) 100 MG tablet, Take 100 mg by mouth Daily, Disp: , Rfl: metoprolol succinate XL (Toprol-XL) 50 MG 24 hr tablet, Take 50 mg by mouth 1 (one) time each day at the same time, Disp: , Rfl: MONOJECT 3CC SYRINGE 3 ML [facility], , Disp: , Rfl: Mounjaro 12.5 MG/0.5ML [...] Georgi Carreon DPM documented in this encounter [facility] 08-21-2024 History of Present illness Narrative \ [...] Disp: , Rfl: Blood Glucose Monitoring Suppl (E-Diversify Yourself Glucometer) w/Device kit, 1 kit Daily Use [...] the morning., Disp: , Rfl: glucose blood (Golden Star ResourcesTouch Verio) test strip, Use as instructed, Disp: 100 each, Rfl: 3 Lancets (Golden Star ResourcesTouch Delica Plus [id number]) misc, , Disp: , Rfl: losartan (Cozaar) [...] SURGERY 01/25/24 ENDOMETRIAL ABLATION 12/22/2023 IUD INSERTION 2011 Mirena [...] Georgi Carreon DPM documented in this encounter [facility] 08-05-2024 Note [place] [facility] - [facility] Subjective Karuna Dumont is a 43 y.o. year old female being seen for follow up medication changes and renal artery duplex. Echo is scheduled for tomorrow at [facility] in [place]. She needs cleared for foot surgery scheduled for at [facility] also. BP has been much [...] Outpatient Medications: amLODIPin (more content not included)... [facility] 07-31-2024 Instructions Mary Ellen Castellon RN - 07/31/2024 2:15 PM EDT Preoperative Education Checklist- General Surgery date: 08/08/24 Surgery time: 0730 a.m. Arrival time: 0610 a.m. 1. Bring a photo ID and your insurance card with you the day of surgery. You will check in at the main lobby of the [facility]- registration desk is straight ahead as soon as you walk in. Tell them you are here for surgery. 2. If you have a Living Will/Durable Power of Feather Maker for Health Care that is not on [...] after you have bathed. 5. NO nail dominican/acrylic on at least one finger. If you are having a hand, wrist or foot surgery then all nail dominican and artificial/acrylic nails must be removed from [...] please call the Preadmission Testing office at [phone], Mon.-Fri. 7 a.m.-3 p.m. Leave a voicemail [...] with your doctor. documented in this encounter [facility] 07-31-2024 Miscellaneous Notes Preoperative Education Checklist- General Surgery date: 08/08/24 Surgery time: 0730 a.m. Arrival time: 0610 a.m. 1. Bring a photo ID and your insurance card with you the day of surgery. You will check in at the main lobby of the [facility]- registration desk is straight ahead as soon as you walk in. Tell them you are here for surgery. 2. If you have a Living Will/Durable Power of Feather Maker for Health Care that is not on [...] after you have bathed. 5. NO nail dominican/acrylic on at least one finger. If you are having a hand, wrist or foot surgery then all nail dominican and artificial/acrylic nails must be removed from [...] please call the Preadmission Testing office at [phone], Mon.-Fri. 7 a.m.-3 p.m. Leave a voicemail [...] her ECHO completed. [facility] Nurse Note Preoperative Education Checklist- General Surgery date: 08/08/24 Surgery time: 0730 a.m. Arrival time: 0610 a.m. 1. Bring a photo ID and your insurance card with you the day of surgery. You will check in at the main lobby of the [facility]- registration desk is straight ahead as soon as you walk in. Tell them you are here for surgery. 2. If you have a Living Will/Durable Power of Feather Maker for Health Care that is not on [...] after you have bathed. 5. NO nail dominican/acrylic on at least one finger. If you are having a hand, wrist or foot surgery then all nail dominican and artificial/acrylic nails must be removed from [...] please call the Preadmission Testing office at [phone], Mon.-Fri. 7 a.m.-3 p.m. Leave a voicemail [...] to the follow-up appointment with your doctor. [facility] 07-31-2024 Nurse Note Hibiclens and surgical instructions reviewed. Patient verbalized understanding. [facility] 07-31-2024 Nurse Note Lisette at Dr Carreon's office notified of need for cardiac clearance once patient has her ECHO completed. T [facility] 07-31-2024 History of Present illness Narrative [...] each, Rfl: 3 Lancets (OneTouch Delica Plus [id number]) [facility] [place], , Disp: , Rfl: losartan (Cozaar) 100 [...] Georgi Carreon DPM documented in this encounter [facility] 07-22-2024 History of Present illness Narrative Reason [...] (LEXAPRO) 10 mg, Daily RT glucose blood (Golden Star ResourcesTouch Verio) test strip Use as instructed Lancets (Golden Star ResourcesTouch Delica Plus [id number]) misc losartan (COZAAR) 100 mg, Daily metoprolol [...] Morbid obesity with BMI of 45.0-49.9, adult ([facility]) PCOS (polycystic ovarian syndrome) Pre-diabetes Rectal bleeding [...] nursing note reviewed. Exam conducted with a buhr mill operator present. Vitals: Estimated body mass index is [...] Sanjeev Lopez DO documented in this encounter [facility] 07-16-2024 History of Present illness Narrative Images [...] Morbid obesity with BMI of 45.0-49.9, adult ([facility]) PCOS (polycystic ovarian syndrome) Pre-diabetes Rectal bleeding [...] each, Rfl: 3 Lancets (OneTouch Delica Plus Yexirl46N) [facility] [place], , Disp: , Rfl: MONOJECT 3CC SYRINGE [...] SURGERY 01/25/24 ENDOMETRIAL ABLATION 12/22/2023 IUD INSERTION 2011 Mirena [...] Georgi Carreon DPM documented in this encounter [facility] 07-03-2024 Note [place] Cardiology - [facility] Subjective Karuna Dumont is [...] Swelling and Unknown Medications Current Outpatient Medications: puodvxpzrc-xjxwtcovqitdw-tzmv (Fioricet) 50-300-40 mg capsule, Take 50 capsules [...] (one) time per week., Disp: , Rfl: sbppofttvzjv-ppr-tjii-FA-vit K 18 mg iron-400 mcg-25 mcg tablet, Take by mouth., Disp: , Rfl: ondansetron ODT (Zofran-ODT) 4 mg disintegrating tablet, Take 4 mg by mouth every 8 (eight) (more content not included)... [facility] 06-28-2024 Note Education Materials Neurology Migraine Headache [...] these instructions at home: Medicines ? Take azoy-mjc-evmeoqz and prescription medicines only as told by your provider. ? Ask your provider if the medicine prescribed to you: ? Requires you to avoid driving or using machinery. ? Can cause constipation. You may need to take these actions to prevent or treat constipation: ? Drink enough fluid to keep your pee (urine) pale yellow. ? Take fvzf-hff-lhstvir or prescription medicines. ? Eat foods that [...] treatment. Where to find more information ? [facility] (more content not included)... [facility] 05-17-2024 Evaluation note Diagnosis Onset Date Resolution Adult ADHD acute May 17, 2024 10:57am Benign essential HTN acute Febr 2024 10:57am [facility] Work Phone: 1(841) 920-284801-09-2025 Evaluation note* Diagnosis Onset Date Resolution Status Admit Date Adult ADHD acute April 11 9:46am Benign essential HTN acute 2024 9:46am Wellness examination acute 2024 9:46am [facility] Work Phone: 1(747) 660-726112-20-2024 History of Present illness Narrative* Caitlyn Logan RN - 03/22/2024 1:59 PM EST [facility] received referral for BRCA testing. Referral faxed to genetics. documented in this encounterBarnesville HospitalGAMINSIDE [facility] [id number] History of Present illness Narrative* Monique Cantrell [...] mg, Daily RT Blood Glucose Monitoring Suppl (D-Definicare Glucometer) w/Device kit 1 kit, Does not apply, Daily, Use four times daily to check FSBS. In the morning prior to breakfast & 1 hour after each meal for a total of 4times daily. Lancets (Golden Star ResourcesTouch Delica Plus Zqnzgs37R) misc MONOJECT 3CC SYRINGE 3 ML misc Mounjaro 10 MG/0.5ML solution auto-injector INJECT 0.5 MLS SUBCUTANEOUSLY ONCE WEEKLY Golden Star ResourcesTouch Verio test strip Qelbree 200 mg, Nightly [...] Name Age of Onset Hypertension Maternal Grandfather [place] Heart disease Maternal Grandfather [place] Stroke Maternal Grandfather [place] Cancer Maternal Grandfather [place] Drug abuse Maternal Grandfather [place] Drug abuse Father Tyrese Diabetes Paternal Grandfather [...] nursing note reviewed. Exam conducted with a buhr mill operator present. Vitals: Estimated body mass index is [...] of: Sanjeev Lopez DO documented in this encounterFitzgibbon [id number] History of Present illness Narrative* Alfonso Liang MD - 01/26/2024 5:57 PM EDT 01/26/2024 6:12 PM Opened this encounter to order Andover but talked to patient's pharmacy that it was an insurance issue and they are going to fulfill the prescription now. No new orders were placed. Dr. Price made aware. ALFONSO LIANG MD PGY4 Gen Surg Residnet [facility] NoteEducation Materials Neurology Migraine Headache A [...] these instructions at home: Medicines ? Take tapr-weu-qybiqvy and prescription medicines only as told by [...] Headache and Migraine Patients (CHAMP): headachemigraine.org ? [place] Migraine Foundation: [email or web address].org ? National Headache Foundation: [...] your health care p (more content not included)...[facility] [id number] History of Present illness Narrative* Tatum Atkinson [...] TAKE 1 TABLET BY MOUTH PREOP Lancets (Golden Star ResourcesTouch Delica Plus Iojdkl56G) misc MONOJECT 3CC SYRINGE 3 ML misc nystatin (Mycostatin) cream Topical, 2 times daily, Dispense cream that does NOT have perfumes added. Optov[employer]uch Verio test strip Qelbree 200 mg, Oral, [...] disease Maternal Grandfather Neri Stroke Maternal Grandfather [place] Cancer Maternal Grandfather [place] Drug abuse Maternal Grandfather [place] Drug abuse Father Tyrese Diabetes Paternal Grandfather [...] nursing note reviewed. Exam conducted with a buhr mill operator present. Vitals: Estimated body mass index is [...] of: Sanjeev Lopez DO documented in this encounterFitzgibbon [id number] History of Present illness Narrative* Tracie Cunningham [...] to check FSBS. Blood Glucose Monitoring Suppl (E-Diversify Yourself Glucometer) w/Device kit 1 kit, Does not [...] Name Age of Onset Hypertension Maternal Grandfather [place] Heart disease Maternal Grandfather [place] Stroke Maternal Grandfather [place] Cancer Maternal Grandfather [place] Drug abuse Maternal Grandfather [place] Drug abuse Father Tyrese Diabetes Paternal Grandfather [...] nursing note reviewed. Exam conducted with a buhr mill operator present. Vitals: Estimated body mass index is [...] reviewed, and patient is to proceed to [facility] OR. Follow Up: Patient is to follow up between 1-2 weeks post op to assess proper healing and recovery from procedure. Documented by Monique Cantrell LPN on behalf of: Sanjeev Lopez DO documented in this encounterFitzgibbon [id number] History of Present illness Narrative* Monique Cantrell [...] to check FSBS. Blood Glucose Monitoring Suppl (E-Diversify Yourself Glucometer) w/Device kit 1 kit, Does not [...] Morbid obesity with BMI of 45.0-49.9, adult ([facility]) PCOS (polycystic ovarian syndrome) Pre-diabetes Rectal bleeding Off and on since 2018 HISTORY PAST MEDICAL HISTORY SOCIAL HISTORY Past Medical History: Diagnosis Date Encounter for gynecological examination (general) (routine) without abnormal findings Fibrocystic breast 05/2022 Frequent headaches Labial cyst Menorrhagia Migraine (CMS/HCC) Chronic Morbid obesity with BMI of 45.0-49.9, adult ([facility]) PCOS (polycystic ovarian syndrome) Pre-diabetes Rectal bleeding [...] disease Maternal Grandfather Neri Stroke Maternal Grandfather [place] Cancer Maternal Grandfather [place] Drug abuse Maternal Grandfather [place] Drug abuse Father Tyrese Diabetes Paternal Grandfather [...] nursing note reviewed. Exam conducted with a buhr mill operator present. Vitals: Estimated body mass index is [...] of: Sanjeev Lopez DO documented in this encounterFitzgibbon [id number] NotePatient Education Materials Follows: Hypertension, Adult High [...] of wine (148 mL (more content not included)...[facility] [id number] History of Present illness Narrative* Rohit Metzger [...] take another few months to subside. Recommended xibm-imv-ddkxgad pain relievers as needed. She is content [...] has any severe symptoms. [facility] in [facility] History of Present illness Narrative* Rohit Metzger MD - 05/16/2023 1:45 PM EST [facility] [...] a snap. She initially followed up with [facility] Orthopedics and was diagnosed with right [...] External notes reviewed: I reviewed notes from [facility] orthopaedics. Review of test/study reports: I reviewed an x-ray obtained of the right ring finger. There were no acute osseous abnormality suchas fracture dislocation. My personal interpretation of tests: I personally viewed and interpreted X-rays from [facility] as above. Xrays done in office today: None. Assessment: 1. Mallet deformity of right ring finger - [facility] - [place], [place] 2. Finger injury, right, initial encounter - [facility] - [place], [place] Plan: I discussed treatment options with [...] progress with her flexion. documented in this encounterKerbs Memorial HospitalBelieversFund [id number] Evaluation note* Encounter Date Diagnosis Assessment Notes Treatment Notes Treatment Clinical Notes May, Adult ADHD (attentio n deficit hyperactivity disorder) (ICD-10 - F90.9) [employer] Other 02-05-2024 History of Present illness Narrative* CAIT Schultz - 05/08/2023 1:30 PM EST Images from the original note were not included. [facility] [address] [place] [id number] * CHART NOTE ? 05/08/2023 Patient: Karuna Dumont 1980 [id number] Provider: Jennie Colon CNP CHIEF COMPLAINT Low [...] Current and prior treatments: -Physical therapy/HEP: denies -care associate: denies -Pain management: denies -Prior neurosurgical surgeries: [...] 12/08/2016 Performed by Dannie Patel MD at [facility] OR SECTION 2018 CHOLECYSTECTOMY BEHAVORIAL SCREENING [...] Right achilles: 2+ Left achilles: 2+ Right tightener: 2+ Left tightener: 2+ Right Andujar: absent Left Andujar: absent [...] record of the patient encounter. Inadvertent computerized retread technician errors related to syntax, spelling, homophones, and/or inaudibility may be present. Thank you for your referral. CAIT Perla CNP 05/08/23 1440 documented in this encounterMercy [facility]02-[facility]24 History of Present illness Narrative* Everett [...] finger for about 2 weeks. Went [place] [facility] due to having numbness in finger and unable to straighten it. Had XR at . On 03/13, pt went to [facility] and had another XR. Unable to get into hand specialist at [facility] until May 16. Continues to [...] crooked. PT is RT handed Prior [place]: [facility] 03/09/23, XR, [place], [facility], XR 03/13/23, Ice, Heat, IBU, Arnica ALLERGIES: No Known Allergies HOME MEDICATIONS: Current Outpatient Medications Medication Instructions amphetamine-dextroamphetamine (Adderall) 20 MG tablet 1 TABLET ORALLY MID DAY 30 DAYS cyclobenzaprine (Flexeril) 10 MG tablet PLEASE SEE ATTACHED FOR DETAILED DIRECTIONS fluconazole (DIFLUCAN) 100 mg, Oral, Daily nystatin (Mycostatin) 787456 UNIT/GM powder APPLY TO AFFECTED AREA TOPICALLY [...] normal Pronation: normal Supination: normal Muscle Strength Blasting Coal Miner: 3/5 Other Erythema: absent Pulse: present Comments: [...] urgent evaluation. Everett CHAVIRA documented in this encounterFitzgibbon [id number] Evaluation note* Encounter Date Diagnosis Assessment Notes Treatment Notes Treatment Clinical Notes Apr, Adult ADHD (attentio n deficit hyperactivity disorder) (ICD-10 - F90.9) [employer] Other 01-12-2024 History of Present illness Narrative* [...] not had any complication. She is using perp-wdw-btacomj pain patches. She denies any recent change [...] 12/08/2016 Performed by Dannie Patel MD at [facility] OR SECTION 2018 CHOLECYSTECTOMY Social History [...] per her request. I have evaluated her [place] state reporting risk OARRS report overdose risk score [...] follow-up. OAARS report reviewed via OARRS/MAPS in [facility]. Discussed with the patient/caregiversafe and effective use [...] you individually. If you have been recommended orit-anm-anuqbry medications please use those medications as indicated [...] or approved for treating a specific patient. [employer] and its affiliatesdisclaim any warranty or liability relating to this information or the use thereof. The use of thisinformation is governed by the Terms of Use, available at https://www.admetricks.[employer]/en/know/jwumxian-idtuhuackolba-aiwyg Copyright Copyright 2022 [employer] and its affiliates and/or licensors. All rights reserved. OVER THE COUNTER PAIN CONTROL GUIDELINES To help control your pain a combination of jyiv-neo-rpvgirq (OTC) pain medications can be used successfully [...] ulcers Do NOT take Tylenol along with Andover or Percocet (they already have Tylenol) Do [...] CAIT Song 04/14/23 1207 documented in this encounterMercy [facility]01-12-[facility]24 Instructions* Patient Instructions* CAIT Song - 04/14/2023 [...] you individually. If you have been recommended szmb-zch-jkzltje medications please use those medications as indicated [...] or approved for treating a specific patient. [employer] and its affiliatesdisclaim any warranty or liability relating to this information or the use thereof. The use of thisinformation is governed by the Terms of Use, available at https://www.admetricks.[employer]/en/know/sakwetti-lvzvaobiwxkol-gefra Copyright Copyright 2022 [employer] and its affiliates and/or licensors. All rights reserved. OVER THE COUNTER PAIN CONTROL GUIDELINES To help control your pain a combination of dfsy-jkw-borabmd (OTC) pain medications can be used successfully [...] ulcers Do NOT take Tylenol along with And[place] or Percocet (they already have Tylenol) Do NOT drink Alcohol while taking Tylenol If you have any questions please talk to your doctor or a pharmacist documented in this encounterMercy [facility]01[facility]10-[facility] Evaluation note* Encounter Date Diagnosis Assessment Notes Treatment Notes Treatment Clinical Notes Apr, Adult ADHD (attentio n deficit hyperactivity disorder) (ICD-10 - F90.9) [employer] Other 01-09-2024 Evaluation note* Encounter Date Diagnosis Assessment Notes Treatment Notes Treatment Clinical Notes Apr, Adult ADHD (attentio n deficit hyperactivity disorder) (ICD-10 - F90.9) [employer] Other 01-08-2024 Evaluation note* Encounter Date Diagnosis Assessment Notes Treatment Notes Treatment Clinical Notes Apr, Adult ADHD (attentio n deficit hyperactivity disorder) (ICD-10 - F90.9) [employer] Other 10-30-2023 Evaluation note* Encounter Date Diagnosis Assessment Notes Treatment Notes Treatment Clinical Notes Jan, Adult ADHD (attentio n deficit hyperactivity disorder) (ICD-10 - F90.9) [employer] Other 10-02-2023 Evaluation note* Encounter Date Diagnosis [...] in 3 months or sooner if needed. [employer] Other 09-08-2023 Evaluation note* Encounter Date Diagnosis Assessment Notes Treatment Notes Treatment Clinical Notes Dec, Adult ADHD (attentio n deficit hyperactivity disorder) (ICD-10 - F90.9) [employer] Other 09-07-2023 Evaluation note* Encounter Date Diagnosis Assessment Notes Treatment Notes Treatment Clinical Notes Dec, Adult ADHD (attentio n deficit hyperactivity disorder) (ICD-10 - F90.9) [employer] Other 08-30-2023 Evaluation note* Encounter Date Diagnosis [...] Cutaneous candidiasis (ICD-10 - B37.2) Refilled diflucan. [employer] Other 07-11-2023 Hospital Discharge instructions* Discharge Instructions* RIZWAN Dietz CNP - 10/11/2022 8:08 PM EDT Please call and schedule a follow-up appointment with [facility]. Use an ice pack or [...] through Care Everywhere. * RICE: General Info (Chilean) * Ankle Sprain (Chilean) documented in [facility] encounterB[facility] Discharge instructions* Instructions* Radha Sanders MD - 08/19/2021 May use ice or heat, whichever feels better. May use Andover for pain. Prednisone as directed. Follow-up with [...] a follow up appointment THANK YOU!!! From [facility] and [facility] On behalf of the Emergency Department staff at [facility], I would like to thank you for giving us the opportunity to address your health care needs and concerns. We hope that during your visit, our service was delivered in a professional and caring manner. Please keep [facility] in mind as we walk with [...] we did during your visit at [email or web address] and let us know about your experience * Attachments The following attachments cannot be sent through Care Everywhere. * Herniated Disc (Chilean) documented in this [facility] Work Phone: evaluation note* Diagnosis Herniated lumbar intervertebral disc- Primary Displacement of lumbar intervertebral disc without myelopathy documented in this encounter [employer] Work Phone: evaluation note* Diagnosis Gastroenteritis- Primary Other and unspecified noninfectious gastroenteritis and colitis documented in this encounter [facility] [employer] Work Phone: evalxzffvk note* Diagnosis Sprain of right ankle, unspecified ligament, initial encounter- Primary documented in this encounter [facility] [employer] SoftwareEvaluation noteNo InformationNort [employer] Other Evaluation note* Diagnosis 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 Pain in finger of right hand Pain in soft tissues of limb documented in this encounter [facility] HealthcareEvaluation noteNo assessment information availableProtestant Hospital Work Phone: Evaluation note* Diagnosis Postop check Follow-up examination, following unspecified surgery Low ferritin level Other nonspecific findings on examination of blood documented in this encounter [facility] HealthcareEvaluation note* Diagnosis Breast pain Mastodynia documented in this encounter [facility] HealthcareEvaluation note* Diagnosis Encounter to discuss procedure Menorrhagia with regular cycle Decreased libido documented in this encounter [facility] HStreamingEvaluation note* Diagnosis Pre-op examination Menorrhagia with regular cycle Abnormal uterine bleeding (AUB) Pelvic pain Hormone disorder Unspecified endocrine disorder documented in this encounter [facility] HealthcareEvaluation note* Diagnosis Onset Date Resolution Status Admit Date Adult ADHD acute April 11 9:46am Wellness examination acute 2024 9:46am [facility] Work Phone: Evaluation note* Diagnosis Back pain, unspecified back location, unspecified back pain laterality, unspecified chronicity- Primary documented in [facility] encounter [facility]* Diagnosis Acute left-sided low back pain with left-sided sciatica- Primary documented in this encounter [facility]* Diagnosis Lumbar radiculopathy, chronic- Primary Urinary incontinence without sensory awareness Incontinence without sensory awareness Sensory deficit, left Spinal stenosis of lumbar region with neurogenic claudication documented in this encounter [facility]* Diagnosis Herniated lumbar intervertebral disc- Primary Displacement of lumbar intervertebral disc without myelopathy documented in this encounter [facility]* Diagnosis 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 Finger injury, right, initial encounter documented in this encounter [facility]* Diagnosis Herniated lumbar intervertebral disc- Primary Displacement of lumbar intervertebral disc without myelopathy Lumbar radiculopathy, chronic documented in this encounter [facility]* Diagnosis 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 documented in this encounter [facility]* Diagnosis Lumbar radiculopathy, chronic- Primary Herniated lumbar intervertebral disc Displacement of lumbar intervertebral disc without myelopathy documented in this encounter [facility]* Diagnosis Hallux valgus of left foot- Primary Instability of left foot joint Tailor's bunion of left foot Acquired deformity of left toe 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 Equinus contracture of left ankle Left foot pain Pain in soft tissues of limb Vitamin D insufficiency documented in this encounter [facility] HealthcareEvaluation note* Diagnosis Well woman exam with routine gynecological exam Routine gynecological examination Breast cancer screening by mammogram documented in this encounter [facility] HealthcareEvaluation note* Diagnosis Hallux valgus of left foot- Primary Instability of left foot joint Tailor's bunion of left foot Acquired deformity of left toe 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 Equinus contracture of left ankle documented in this encounter [facility] HealthcareEvaluation note* Diagnosis Preop examination- Primary Unspecified pre-operative examination Hypertension, unspecified type documented in this encounter [facility]* Diagnosis S/P foot surgery- Primary Other postprocedural status Left foot pain Pain in soft tissues of limb Difficulty walking Difficulty in walking Instability of left ankle joint documented in this encounter [facility] HealthcareEvaluation note* Diagnosis S/P foot surgery- Primary Other postprocedural status Left foot pain Pain in soft tissues of limb documented in this encounter [facility] HealthcareEvaluation note* Diagnosis S/P foot surgery- Primary Other postprocedural status Left foot pain Pain in soft tissues of limb documented in this encounter [facility] HealthcareEvaluation note* Diagnosis S/P foot surgery- Primary [...] Surgical History Hospitalization History see surgical hx [employer] Other Hospital Discharge instructions* Attachments The following attachments cannot be sent through Care Everywhere. * Gastroenteritis (Chilean) documented in this encounter[employer] Work Phone: InstructionsNot on filedocumented in this encounter [facility] SystemInstructionsNot on filedocumented in this encounter [facility] SystemInstructions* Attachments The following attachments cannot be sent through Care Everywhere. * Radiculopathy (Chilean) * Spinal stenosis (Chilean) [facility] SystemInstructionsNot on file documented in this encounterProDunlap [facility] SystemInstructionsNot on file documented in this [facility] SystemInstructionsNot on file documented in this encounter[facility] SystemInstructions* Pre-Procedure Instructions - Bessie Boswell RN - 01/18/2024 3:45 PM EDT Your surgery/procedure is scheduled at [facility] on 01/25/24 at 10 am Arrival Time 8 am [facility] Address: [address] [place] [address], [address] [place] [address] in the Emergency Center Parking lot. Report to the hotel front office manager in the Emergency/Surgery Registration lobby of the hospital. Notify your SURGEON if you develop any illness such as a cold, cough, fever, sore throat, vomiting or are hospitalized between now and your surgery. Please call Pre-Admission Clinic at [phone] if you have any questions prior to surgery. For questions the morning of surgery, call the Pre-op Department at [phone]. Medication Instructions (Do not stop your medications without consulting the prescribing physician). Take the following medications the morning of surgery with a sip of water: NONE Diabetic or Weight loss medications: HOLD: Thomas LAST DOSE:01/13 Take inhalers as prescribed the [...] weekly, hold 1 week prior to surgery: Thomas . Blood thinners: Please contact your prescribing [...] would like to schedule therapy at a [facility], please call [phone] ([phone]). Do not use lotions, creams, powders, perfume, make up, cologne or after-shaves day of surgery. Remove ALL jewelry including wedding rings, body piercings, hair extensions that contain metal, nail dominican, make-up, and contact lens. You may brush your teeth the morning of surgery, but do not swallow the water. Wear your dentures and partial plates to the hospital (no adhesive). Shower the night the before. If applicable, use the CHG (chlorhexidine gluconate) soap or wipes. Please be advised, [facility] has transitioned to a cashless [...] RIGHTS AND RESPONSIBILITIES As a patient at [facility], you have the right to: Receive medical care and be informed of who is taking care of you Be treated with dignity and respect Have a family member/industrial relations representative of choice and your physician notified of your admission Receive information and actively participate in decisions about your care and treatment Refuse care, treatment and services Decide who may provide your support and speak for you Access baptism and spiritual services Participate in ethical issues [...] of hospital charges and payment methods Patient/patient industrial relations representative responsibilities are to: Provide information about health status to facilitate care, treatment and services Follow the treatment, plan, keep appointments and speak up when you do not understand the plan Respect the rights of other patients and healthcare personnel Follow organizational rules and regulations that support quality care and a safe environment Fulfill financial obligations as promptly as possible [facility] 3 day Blinds SystemInstructionsNot on filedocumented in this encounter [facility] 3 day Blinds SystemInstructionsNot on filedocumented in this encounter [facility] SystemInstructionsNot on filedocumented in this encounter [facility]iscellaneous Notes* Pre-Procedure Instructions - Bessie Boswell RN - 01/18/2024 3:45 PM EDT Your surgery/procedure is scheduled at [facility] on 01/25/24 at 10 am Arrival Time 8 am [facility] Address: [address] [place] [address], [address] [address] in the Emergency Center Parking lot. Report to the hotel front office manager in the Emergency/Surgery Registration lobby of the hospital. Notify your SURGEON if you develop any illness such as a cold, cough, fever, sore throat, vomiting or are hospitalized between now and your surgery. Please call Pre-Admission Clinic at [phone] if you have any questions prior to surgery. For questions the morning of surgery, call the Pre-op Department at [phone]. Medication Instructions (Do not stop your medications without consulting the prescribing physician). Take the following medications the morning of surgery with a sip of water: NONE Diabetic or Weight loss medications: HOLD: Thomas LAST DOSE:01/13 Take inhalers as prescribed the [...] would like to schedule therapy at a [facility] facility, please call [phone] ([phone]). Do not use lotions, creams, powders, perfume, make up, cologne or after-shaves day of surgery. Remove ALL jewelry including wedding rings, body piercings, hair extensions that contain metal, nail dominican, make-up, and contact lens. You may brush your teeth the morning of surgery, but do not swallow the water. Wear your dentures and partial plates to the hospital (no adhesive). Shower the night the before. If applicable, use the CHG (chlorhexidine gluconate) soap or wipes. Please be advised, [facility] has transitioned to a cashless payment system. [...] RIGHTS AND RESPONSIBILITIES As a patient at [facility], you have the right to: Receive medical care and be informed of who is taking care of you Be treated with dignity and respect Have a family member/industrial relations representative of choice and your physician notified of your admission Receive information and actively participate in decisions about your care and treatment Refuse care, treatment and services Decide who may provide your support and speak for you Access baptism and spiritual services Participate in ethical issues [...] of hospital charges and payment methods Patient/patient industrial relations representative responsibilities are to: Provide information [...] as promptly as possible documented in this encounterMer[facility] HospitalReason for referral (narrative)* Consultation (Routine) - Pending Review Specialty Diagnoses / Procedures Referred By Contact Referred To Contact Physical Medicine and Rehabilitation Diagnoses Herniated lumbar intervertebral disc Lumbar radiculopathy, chronic Jennie Colon, REGIONAL SALES REPRESENTATIVE-CHLORINE CELLS OPERATOR [address] [facility] [address] [place] [address] Vishal Martin DO [address] [facility] [address] [place] [address] Referral ID Status Reason Start Date Expiration Date Visits Requested Visits Authorized [id number] Pending Review Specialty Services Required 05/24/2023 05/23/2024 1 1 [facility]Reason for [facility] (narrative)* Consultation (Routine) - Pending Review Specialty Diagnoses / Procedures Referred By Angela hart Referred To Contact Pain Medicine Diagnoses Lumbar radiculopathy, chronic Herniated lumbar intervertebral disc Jennie Colon APRN-CNP [address] [facility] [address] [place] [address] Davis Silva MD [address] [place] [address] Referral ID Status Reason Start Date Expiration Date V isits Requested Visits Authorized [id number] Pending Review 06/12/2023 06/11/2024 1 1 [facility] HospitalBi[facility] Advance Directives No Advanced Directives Records FoundDocuments on File Type Date Recorded 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 ACP-Advance Directive ACP-Power of Feather Maker Advance Directive Response Recorded Date/ Time Advance Directives No December 7:20pm Date Activated Date Inactivated Comments 01/25/2024 2:30 PM 01/26/2024 2:17 PM Advance Directive Response Recorded Date/ Time Advance Directives No April 10, 2024 9:32am Advance Directive Response Recorded Date/ Time Advance Directives No April 10, 2024 10:32am Summary Purpose Family History No Family History [...] Referred By Angela hart Referred To Contact Radiology Diagnoses Lumbar radiculopathy, chronic Urinary incontinence without sensory awareness Sensory deficit, left Spinal stenosis of lumbar region with neurogenic claudication Procedures MR lumbar spine without contrast Jennie Colon, REGIONAL SALES REPRESENTATIVE-CHLORINE CELLS OPERATOR [address] [address] [facility] [address] [place] [address] Phone: [phone] Referral ID Status Reason Start Date Expiration Date V isits Requested Visits Authorized [id number] Pending Review 05/08/2023 05/07/2024 1 1 Additional [...] in her L5, S1. Patient does see [facility] spinal surgeon but can't get in [...] site of digit, initial encounter Nicole Lockwood, REGIONAL SALES REPRESENTATIVE-CHLORINE CELLS OPERATOR [address], [place] [address] Rohit Smith MD [address] [facility] [address] [place] [address] Referral ID Status Reason Start Date Expiration Date Visits Requested Visits Authorized [id number] Pending Review Specialty Services Required 3 03/12/2024 1 1 Reason Comments Follow-up Rt ring mallet finge 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 Reason Comments Foot [...] would not scan at bedside. Verified with [facility] prior to administration.) Scheduled Medication Order [...] mL 10 mL, IntraVENous, PRN, Starting on 01/03/22 at 1233, Until Discontinued, Line [facility] 1241 [...] days. 2051 (Given - Provid er: Becky Toussaint, ELVIS) Care Teams (unrecognized sec tion and content) [...] July 29, 2024 End: July 29, 2024 Armorer Technician Relationship Specialty Start Date End Date Johnathon Winter MD PCP - General Family Medicine 03/08/16 Armorer Technician Relationship Specialty Start Date End Date Johnathon Wniter MD PCP - General Family Medicine 03/08/16 Armorer Technician Relationship Specialty Start Date End Date Johnathon Winter MD PCP - General Family Medicine 03/08/16 Armorer Technician Relationship Specialty Start Date End Date Johnathon Winter MD [address] [place] [facility] [address] PCP - General Family Medicine 12/12/22 Team [...] December 06, 2023 End: December 06, 2023 Armorer Technician Relationship Specialty Start Date End Date Johnathon Winter MD [address] [place] [facility] [address] PCP - General Family Medicine 12/12/22 Armorer Technician Relationship Specialty Start Date End Date Johnathon Winter MD [address] [place] [facility] [address] PCP - General Family Medicine 12/12/22 Armorer Technician Relationship Specialty Start Date End Date Johnathon Winter MD [address] [place] [facility] [address] PCP - General Family Medicine 12/12/22 Armorer Technician Relationship Specialty Start Date End Date Johnathon Winter MD [address] [place] [facility] [address] PCP - General Family Medicine 12/12/22 Armorer Technician Relationship Specialty Start Date End Date Johnathon Winter MD [address] [place] [address] PCP - General Family Medicine 12/12/22 Armorer Technician Relationship Specialty Start Date End Date Johnathon Winter MD [address] [place] [address] PCP - General Family Medicine 12/12/22 Armorer Technician Relationship Specialty Start Date End Date Johnathon Winter MD [address] [place] [address] PCP - General Family Medicine 12/12/22 Armorer Technician Relationship Specialty Start Date End Date Johnathon Winter MD [address] [place] [address] PCP - General Family Medicine 12/12/22 Armorer Technician Relationship Specialty [place] [address] [place] [address], [place] [address] PCP - General 03/13/23 Armorer Technician Relationship Specialty Start Date End Date Johnathon Winter MD [address] [place] [address] PCP - General Family Medicine 12/12/22 Team [...] April 11, 2024 End: April 11, 2024 Armorer Technician Relationship Specialty [place] [address] [place] [address] [place] [address] PCP - General 03/13/23 Armorer Technician Relationship Specialty [place] [address] [place] [address] [place] [address] PCP - General 03/13/23 Team Status: Active Member Role Status Dates Johnathon Winter MD Primary Care Provide r, Attending Provider Active Start: April 15, 2024 Armorer Technician Relationship Specialty Start Date End Date Johnathon Winter MD [address] [place] [address] PCP - General 03/13/23 Armorer Technician Relationship Specialty Start Date End Date Johnathon Winter MD [address] [place] [address] PCP - General 03/13/23 Armorer Technician Relationship Specialty Start Date End Date Johnathon Winter MD [address] [place] [address] PCP - General 03/13/23 Armorer Technician Relationship Specialty [place] [address] [place] [address] [place] [address] PCP - General 03/13/23 Armorer Technician Relationship Specialty [place] [address] [place] [address] [place] [address] PCP - General 03/13/23 Armorer Technician Relationship Specialty Start Date End Date Johnathon Winter MD [address] [place] [facility] [address] PCP - General Family Medicine 12/12/22 Armorer Technician Relationship Specialty Start Date End Date Johnathon Winter MD [address] [place] [address] PCP - General Family Medicine 12/12/22 Armorer Technician Relationship Specialty Start Date End Date Johnathon Winter MD [address] [place] [address] PCP - General Family Medicine 12/12/22 Armorer Technician Relationship Specialty Start Date End Date Johnathon Winter MD [address] [place] [address] PCP - General Family Medicine 12/12/22 Armorer Technician Relationship Specialty Start Date End Date Johnathon Winter MD [address] [place] [address] PCP - General Family Medicine 12/12/22 Armorer Technician Relationship Specialty Start Date End Date Johnathon Winter MD [address] [facility] [address] PCP - General 03/13/23 Armorer Technician Relationship Specialty Start Date End Date Johnathon Winter MD [address] [place] [address] PCP - General Family Medicine 12/12/22 Armorer Technician Relationship Specialty Start Date End Date Johnathon Winter MD [address] [place] [address] PCP - General Family Medicine 12/12/22 Armorer Technician Relationship Specialty Start Date End Date Johnathon Winter MD [address] [place] [address] PCP - General Family Medicine 12/12/22 Armorer Technician Relationship Specialty Start Date End Date Johnathon Winter MD [address] [place] [address] PCP - General Family Medicine 12/12/22 Armorer Technician Relationship Specialty Start Date End Date Johnathon Winter MD [address] [place], [place] [phone] PCP - General 03/13/23 INFORMATION SOURCE (unrecogn ized section and content) DATE CREATED AUTHOR 07/17/2022 [facility] DATE CREATED AUTHOR AUTHOR'S ORGANIZ ATION 10/12/2022 [facility] DATE CREATED AUTHOR AUTHOR'S ORGANIZ ATION 06/12/2023 [facility] DATE CREATED AUTHOR AUTHOR'S ORGANIZ ATION 12/14/2023 [facility] DATE CREATED AUTHOR AUTHOR'S ORGANIZ ATION 01/26/2024 [facility] DATE CREATED AUTHOR AUTHOR'S ORGANIZ ATION 07/09/2024 [facility] DATE CREATED AUTHOR AUTHOR'S ORGANIZ ATION 10/23/2024 [facility] DATE CREATED AUTHOR AUTHOR'S ORGANIZ ATION 10/30/2024 [facility] EPIC DATE CREATED AUTHOR AUTHOR'S ORGANIZ ATION 11/01/2024 [facility] DATE CREATED AUTHOR AUTHOR'S ORGANIZ ATION 01/11/2025 [facility] Goals (unrecognized section and content) Goals [...] BE BASED ON THE PRIMARY CLINICAL RECORDS. [facility]. provides no warranty or guarantee of the accuracy or completeness of information in this document.
--- OUTSIDE RECORDS SUMMARY | 2025-01-16 09:53 | XMS_ITS | Encounter Summary ---
Author Organization [facility] Address [address] [place] [address] Care Team Providers Care Hasher Machine Operator Name Role Phone Radha Sanchez MD Primary Care Provider [phone] Encounter Details Date Type Department Care Team (Late Contact Info) Description 07/31/2024 Abstract [facility] [address] [place] [address] Georgi Carreon DPM [address] [place], [place] [phone] Social History Tobacco Use Types Packs/Day Years [...] Office Visit [facility] [address] [place] [address] Georgi Carreon DPM [address] [place], [place] [phone] 07/29/2025 3:00 PM EDT Office Visit [facility] [address] [address] Sanjeev Lopez DO [address] [facility] [place] [address] documented as of this encounter Visit Diagnoses Not on filedocumented in this encounter Care Teams Hasher Machine Operator Relationship Specialty Start Date End Date Radha Sanchez MD [address] [place] [address] PCP - General Family Medicine 12/12/22 documented as of this encounter
[2025-01-17 08:09] LABS: Sex Horm Binding Glob, Serum 64.7 nmol/L (24.6-122.0)
== END 2025-01-16 09:46 | disposition home or self-care (01) ==
LOC: LAB 09:48
PROVIDERS: PCP Family Medicine; Visit Provider Obstetrics & Gynecology
DX: E34.9 Endocrine disorder, unspecified (principal); E88.819 Insulin resistance, unspecified; R63.5 Abnormal weight gain
CPT/HCPCS: 36415; 82530; 82627; 82670; 82679; 82728; 82947; 83036; 83525; 84144; 84260; 84270; 84402; 84403; 84432; 84436; 84439; 84443; 84481; 84482; 84681; 86376; 86800

== ENCOUNTER 2025-01-16 10:26 | Outpatient (OUT) | payer BC, SELFPAY ==
--- OUTSIDE RECORDS SUMMARY | 2023-08-17 10:45 | XMS_ITS | Continuity of Care Document ---
Author [facility] [employer] [facility] Address [address] [place] [address] Phone Care Team Providers Care Slot Router Name Role Phone Kaleb Price DO Unavailable Unavailabl e Allergies, Adverse Reactions, Alerts Substance Reaction Status Criticality No Known Allergies Active No Inform ation Medications Medication Instructions Dosage Effective Dates (start - stop) Status Comments Adderall 20 mg tablet take 1 tablet by o ral route every day before breakfast 20 MG - Active Vyvanse 50 mg capsule take 1 capsule by oral route every day in the morning 50 MG - Active Mounjaro 10 mg/0.5 mL subcutaneous pen injector inject (10MG) by subcutaneous route every week 10 MG - Active nystatin 100,000 unit/gram topical ointment apply by topical route 2 times every day to the affected area(s) 0.00 - Active nystatin 100,000 unit/gram topical powder apply by topical route 2 times every day to the affected area(s) 0.00 - Active Procedures Procedure Date OFFICE/OUTPATIENT VISIT, [facility] Advance Directives Directive Yes / No Effective Date File Name No Information Encounters Encounter Description Practice Location Reason(s) For Visit Diagnoses Date Provider Providers Copied on Encounter OFFICE/OUTPA TIENT VISIT, [facility], [address], [place], [place], [id number] , [place] tel:[phone] [facility] Surgery Panniculectom y cosult. (chief complaint) Panniculitis affecting regions of neck and back, site unspErythema intertrigo Albert Rosales. [address], [place], [place], [id number], . tel:[phone] Referring Provider: Kaleb Price DO, [address], [place], [address]. tel:[phone] Family History Family Member Type Diagnosis Age At Onset No Information Payers Payer name Insurance type Covered constitution party ID Authoriza adilson(s) Keyon WONG [id number] Social History Type Description Quantity Date Captured [...] No Information Instructions Date Instruction Additional Infor matrichard No Information Assessments Type Assessment Date assessment Erythema intertrigo assessment Panniculitis affecting back Patient Care Teams Name Effective Dates (start - stop) Status Members No Information
--- OUTSIDE RECORDS SUMMARY | 2025-01-16 10:29 | XMS_ITS | Encounter Summary ---
Author Organization [facility] Address [address] [place] [address] Care Team Providers Care Pastrycook'S Assistant Name Role Phone Royal Cabrera MD Primary Care Provider [phone] Miller Mccormick MD Unavailable Unavailable Reyna Alves PICKER MACHINE OPERATOR Unavailable Encounter Details Date Type Department Care Team (Late st Contact Info) Description 12/16/2013 Orders Only [facility] [place] Family Medicine [address] [place] [address] ProviderKarla MD [address] [place] [address] Social History Tobacco Use Types [...] PM EDT Narrative 01/21/2016 5:45 PM EDT [address] [address] ORDERING PROVIDER: Victor M Barry, PATIENT NAME: Karuna Dumont MR: [id number] : 1980 EXAMINATION: US PELVIC DATE OF [...] Procedure Note Provider, MD Karla - 01/21/[address] [address] ORDERING PROVIDER: Victor M Barry, PATIENT NAME: Karuna Dumont MR: [id number] : 1980 EXAMINATION: US PELVIC DATE OF [...] on filedocumented in this encounter Care Teams Pastrycook'S Assistant Relationship Specialty Start Date End Date Royal Cabrera MD [address] [place] [address] PCP - General Family Medicine 12/12/13 04/02/18 Reyna Alves NP [address] [place] [address] PCP - PC Team Nurse Practitioner 08/31/17 04/02/18 Miller Mccormick MD [address] [place] [address] Polisher Numeral Obstetrics and Gynecology 12/19/13 documented as of this encounter
--- OUTSIDE RECORDS SUMMARY | 2025-01-16 10:29 | XMS_ITS | Clinical Summary ---
Author Organization [facility] Address [address] [facility], [address] [place] [address] Care Team Providers Care Boilermaker Apprentice Name Role Phone Radha Sanchez MD Primary Care Provider [phone] Allergies No known active allergies Medications tiZANidine (ZANAFLEX) 2 MG tablet Take 2 tablets by mouth nightly as needed (muscle spasms) 10 tablet 2 Active Additional Information Patient not taking.Reported on 10/11/2022 Active Problems Patient Care Coordination No te Formatting of this note migh t be different from the original. EDC in book = 03/08/17 [facility] = NA [...] HIV Screen (08/04/2016 9:00 AM EDT) Pathologist [facility] HIV Ag/Ab NONREACTIVE NR 08/04/2016 10:56 PM EDT [facility] Comment: No laboratory evidence of HIV infection. If acute HIV infection is suspected, consider testing for HIV-1 RNA. This is an FDA approved immunoassay that detects HIV-1 and HIV-2 antibodies and HIV-1 p24 antigen to screen for infection with HIV-1 or HIV-2. Performed at [address] [id number] ([phone] 08/04/2016 9:00 AM EDT 08/04/2016 1:12 PM EDT Shu Alves DIRECTOR INTERNATIONAL - CNM IMMUNOLOGY ORDERABLES Final Result [address] [address], [facility] [phone] [facility] * Hemoglobin A1C (08/04/2016 9:00 AM EDT) Hemoglobin A1C 5.6 4.8 - 5.9 % 08/04/2016 2:07 PM EDT [facility] Estimated Avg Glucose 114 mg/dL 08/04/2016 2:07 PM EDT [facility] Comment: The ADA and AACC recommend providing the estimated average glucose result to permit better patient understanding of their HBA1c result. Performed at [address] [place] [address] ([phone] 08/04/2016 9:00 AM EDT 08/04/2016 1:12 PM EDT Shu Thompson Long DIRECTOR INTERNATIONAL - CNM CHEMISTRY ORDERABLES Final Result [facility] [address] [place] [address], [facility] [phone] [facility] from Last 3 Months or Most Recently Relevant to Health Maintenance Insurance [facility] Care Teams Boilermaker Apprentice Relationship Specialty Start Date End Date Radha Sanhcez MD PCP - General Family Medicine 03/08/16
--- OUTSIDE RECORDS SUMMARY | 2025-01-16 10:29 | XMS_ITS | Encounter Summary ---
Author Organization [employer] Address [address] [place] [address] Care Team Providers Care Collet Driller Name Role Phone Royal Cabrera MD Primary Care Provider Miller Mccormick MD Unavailable Unavailable Reyna Alves NP Unavailable Reason for Visit * Reason Comments Medication Refill Encounter Details Date Type Department Care Team (Late st Contact Info) Description 03/06/2014 Refill [facility] - Family Medicine [address] [address] Royal Cabrera MD [address] [place] [address] [phone] Medication Refill Social History Tobacco Use Types [...] on filedocumented in this encounter Care Teams Collet Driller Relationship Specialty Start Date End Date Royal Cabrera MD [address] [place] [address] PCP - General Family Medicine 12/12/13 04/02/18 Reyna Alves NP [address] [place] [address] [id number] PCP - PC Team Nurse Practitioner 08/31/17 04/02/18 Miller Mccormick MD [address] [place] [address] Stitching Machine Feeder Or Offbearer Obstetrics and Gynecology 12/19/13 documented as of this encounter
--- OUTSIDE RECORDS SUMMARY | 2025-01-16 10:29 | XMS_ITS | Clinical Summary ---
Author Organization [employer] Address [address] [place] [address] Care Team Providers Care Staff Reporter Name Role Phone Unavailable Primary Care Provider [...] of 3 - 19+ 3-dose series) 2001 Qozkzsz-Lahlufqijn-Ieakhyyxm Vaccines (1 - Tdap) 2001 Pap Smear [...] Procedure Name Priority Date/Time Associated Diagnosis Comments [facility] COTESTING: PAP + HPV POOL AND 16/18 GENOTYPING FOR WOMEN > OR = 30 YRS OLD Routine 10/11/2013 12:00 AM EDT Well woman exam with routine gynecological exam Cervical cancer screening from Last 3 Months or Most Recently Relevant to Health Maintenance Results * [facility] PAP + HPV High Risk Pool and 16/18 Genotyping (CF8472) (10/11/2013 12:00 AM EDT) [facility] Papsmear SEE BELOW [facility] Drivewyze Comment: [id number] Source: Cervical/Vaginal/Endocervical Testing/Results: Sent for HPV High Risk Pool and Brittani 16/18 Testing Clinical History: LMP: 09/05/13. IUD. Test/Results: Negative for intraepithelial Lesions or Malignancy Electronically Signed By: HARRY RAMIREZ (ASCP) Comments: This specimen was screened by an FDA approved automated imaging system along with an additional manual rescreening by a tripe finisher and/or pathologist. Adequacy: Specimen is adequately prepared and documented. No endocervical cells present [facility] DNA (High/Low risk) Genotyping SEE BELOW [facility] Comment: [id number] Results: Specimen: Thin Prep Results: HPV 16: [...] molecular assay. This test is performed at [facility], [address] [place] [address] [place] [address]. This test was developed and its performance characteristics determined by [facility] as a self-validated assay for SurePath and Thin Prep pap specimens. It is approved by the U.S. Food and Drug Administration for ThinPrep. This test has not been approved by the FDA or validated by [facility] for anal paps or urethra swabs. Electronically Signed By: FREEMAN Other 10/11/2013 10/11/2013 Mayur Mason NP PATHOLOGY/CYTOLOGY ORDERABLE S Final Result [facility] [address] [place] [address] from Last 3 Months or Most Recently Relevant to Health Maintenance [place] [place] [address] PPO
--- OUTSIDE RECORDS SUMMARY | 2025-01-16 10:29 | XMS_ITS | Encounter Summary ---
Author Organization [facility] Address [address] [place] [address] Care Team Providers Care Wrist Liner Name Role Phone Radha Sanchez MD Primary Care Provider [phone] Encounter Details Date Type Department Care Team (Late st Contact Info) Description 04/28/2023 Clinisync Result Encounter [facility] External Department Unsolicited Sanjeev Lopez, DO [address] [place] [address] [address] [place], [place] [phone] Social History Tobacco Use Types Packs/Day Years [...] Office Visit [facility] [address] [place] [phone] Georgi Carreon, DPMiles [address] [place], [place] [phone] 07/29/2025 3:00 PM EDT Office Visit [facility] [address] [place] [phone] Sanjeev Lopez DO [address] [facility] [place] [address] documented as of this encounter Procedures Procedure Name Priority Date/Time Associated Diagnosis Comments MM TOMOSYNTHESIS SCREENING BI 04/28/2023 12:44 PM EST documented in this encounter Results * MM TOMOSYNTHESIS SCREENING BI (04/28/2023 12:44 PM EST) Anatomical Region Laterality Modality Other 04/28/2023 12:4 4 PM EST Narrative 04/28/2023 12:44 PM EST The [address] [address] Mammography Report Signed Patient: CHAR DUMONT MR#: [id number] : 1980 Acct:[id number] Age/Sex: 42 / F ADM Date: 04/28/23 Loc: MAMMO Attending Dr: Sanjeev Lopez D.O. Ordering Physician: Sanjeev Lopez D.O. Results: Date of Service: 04/28/23 Follow Up: Procedure(s): MM tomosynthesis screening BI Accession Number(s): [id number] cc: Radha Sanchez M.D.; Sanjeev Lopez D.O. Patient Name: CHAR DUMONT MR#: [id number] : 1980 Exam Date: 04/28/2023 Ordering Doctor: [...] stomach cancer at age 67. LOCATION: The [facility] BREAST COMPOSITION: Scattered areas fibroglandular [...] Signed By: 04/28/23 1244 DD/ 1244 TD/TT: Cyber Intel Planner: Procedure Note Radiology, Radiologist, - 04/28/2023 [place] [address] Mammography Report Signed Patient: CHAR DUMONT DMR#: [id number] : 1980Acct:[id number] Age/Sex: 42 / FADM Date: 04/28/23 Loc: MAMMO Attending Dr: Sanjeev Lopez D.O. Ordering Physician: Sanjeev Lopez D.O.Results: Date of Service: 04/28/23Follow Up: Procedure(s): MM tomosynthesis screening BI Accession Number(s): [id number] cc: Radha Sanchez M.D.; Sanjeev Lopez D.O. Patient Name: CHAR DUMONT MR#: [id number] : 1980 Exam Date: 04/28/2023 Ordering Doctor: [...] stomach cancer at age 67. LOCATION: The [facility] BREAST COMPOSITION: Scattered areas fibroglandular [...] M.D. Signed By:04/28/23 1244 DD/ 1244 TD/TT: Cyber Intel Planner: us Sanjeev Jessica DO [facility] Final Result documented in this encounter Visit Diagnoses Not on filedocumented in this encounter Care Teams Wrist Liner Relationship Specialty Start Date End Date Radha Sanchez MD [address] [place] [phone] PCP - General Family Medicine 12/12/22 documented as of this encounter
--- OUTSIDE RECORDS SUMMARY | 2025-01-16 10:29 | XMS_ITS | Encounter Summary ---
Author Organization [employer] Address [address] [place] [address] Care Team Providers Care Burial Vault Deliverer And Installer Name Role Phone Royal Cabrera MD Primary Care Provider [phone] Milelr Mccormick MD Unavailable Unavailable Reyna Alves SLIVER FORMER Unavailable Encounter Details Date Type Department Care Team (Late st Contact Info) Description 12/16/2013 Orders Only [facility] [place] [address] [place] [address] ProviderKarla MD [address] [place] [address] Social History Tobacco Use Types [...] PM EDT Narrative 01/21/2016 5:45 PM EDT [address] [address] ORDERING PROVIDER: Victor M Barry, PATIENT NAME: Karuna Dumont MR: [id number] : 1980 EXAMINATION: CT IVP DATE OF [...] Procedure Note Provider, MD Karla - 01/21/[address] [address] ORDERING PROVIDER: Victor M Barry PATIENT NAME: Karuna Dumont MR: [id number] : 1980 EXAMINATION: CT IVP DATE OF [...] on filedocumented in this encounter Care Teams Burial Vault Deliverer And Installer Relationship Specialty Start Date End Date Royal Cabrera MD [address] [place] [address] PCP - General Family Medicine 12/12/13 04/02/18 Reyna Alves NP [address] [place] [address] PCP - PC Team Nurse Practitioner 08/31/17 04/02/18 Miller Mccormick MD [address] [place] [address] Rn Baby Obstetrics and Gynecology 12/19/13 documented as of this encounter
--- OUTSIDE RECORDS SUMMARY | 2025-01-16 10:30 | XMS_ITS | Encounter Summary ---
Author Organization [facility] Address [address] [place] [address] Care Team Providers Care Container Packer Operator Name Role Phone Radha Sanchez MD Primary Care Provider [phone] Encounter Details Date Type Department Care Team (Late st Contact Info) Description 03/13/2024 Clinisync Result Encounter [facility] External Department Unsolicited Sanjeev Lopez, DO [address] [place] [address] [address] [place], [place] [phone] Social History Tobacco Use Types Packs/Day Years [...] Office Visit [facility] [address] [place] [phone] Georgi Carreon, DPMiles [address] [place], [place] [phone] 07/29/2025 3:00 PM EDT Office Visit [facility] [address] [facility] [place] [phone] Sanjeev Lopez DO [address] [facility] [place] [address] documented as of this encounter Procedures Procedure Name Priority Date/Time Associated Diagnosis Comments US BREAST BI LIMITED 03/13/2024 2:58 PM EST documented in this encounter Results * US BREAST BI LIMITED (03/13/2024 2:58 PM EST) Anatomical Region Laterality Modality Other 03/13/2024 2:58 PM EST Narrative 03/13/2024 2:59 PM EST The [address] [address] Ultrasound Report Signed Patient: CHAR DUMONT MR#: [id number] : 1980 Acct:[id number] Age/Sex: 43 / F ADM Date: 03/13/24 Loc: MAMMO Attending Dr: Sanjeev Lopez D.O. Ordering Physician: Sanjeev Lopez D.O. Date of Service: 03/13/24 Procedure(s): US breast BI limited Accession Number(s): [id number] cc: Radha Sanchez M.D.; Sanjeev Lopez D.O. Patient Name: CHAR DUMONT MR#: [id number] : 1980 Exam Date: 03/13/2024 Ordering Doctor: [...] at age 67. LOCATION: The [facility] BREAST COMPOSITION: There are scattered areas [...] Signed By: 03/13/24 1459 DD/ 1458 TD/TT: Rn Labor And Delivery: Procedure Note Radiology, Radiologist, - 03/13/2024 [place] [address] Ultrasound Report Signed Patient: CHAR DUMONT DMR#: [id number] : 1980Acct:[id number] Age/Sex: 43 / FADM Date: 03/13/24 Loc: MAMMO Attending Dr: Sanjeev Lopez D.O. Ordering Physician: Sanjeev Lopez D.O. Date of Service: 03/13/24 Procedure(s): US breast BI limited Accession Number(s): [id number] cc: Radha Sanchez M.D.; Sanjeev Lopez D.O. Patient Name: CHAR DUMONT MR#: [id number] : 1980 Exam Date: 03/13/2024 Ordering Doctor: [...] at age 67. LOCATION: The [facility] BREAST COMPOSITION: There are scattered areas [...] M.D. Signed By:03/13/24 1459 DD/ 1458 TD/TT: Rn Labor And Delivery: us Sanjeev Lopez DO [facility] Final Result documented in this encounter Visit Diagnoses Not on filedocumented in this encounter Care Teams Container Packer Operator Relationship Specialty [place] [address] [place] [phone] PCP - General Family Medicine 12/12/22 documented as of this encounter
--- OUTSIDE RECORDS SUMMARY | 2025-01-16 10:30 | XMS_ITS | Encounter Summary ---
Author Organization [employer] Address [id number] [address] [place] [address] Care Team Providers Care Laboratory Tester Name Role Phone Radha Sanchez MD Primary Care Provider [phone] Encounter Details Date Type Department Care Team (Late st Contact Info) Description 09/27/2021 Orders Only [facility] [address] [place] [phone] Willa Stevens Acute bilateral low back pain [...] EMG (09/27/2021 10:00 AM EDT) Lisette Murillo CHIEF WELLNESS OFFICER-WATER PUMP ASSEMBLER NEUROLOGY ORDERABLES Ed ited Result - Final [...] documented as of this encounter Care Teams Laboratory Tester Relationship Specialty Start Date End Date Radha Sanchez MD [address] [place] [address] PCP - General 03/13/23 documented as of this encounter
--- OUTSIDE RECORDS SUMMARY | 2025-01-16 10:30 | XMS_ITS | Encounter Summary ---
Author Organization [facility] Address [address] [place] [address] Care Team Providers Care Fixture Designer Name Role Phone Radha Sanchez MD Primary Care Provider Encounter Details Date Type Department Care Team (Late st Contact Info) Description 03/13/2024 Clinisync Result Encounter [facility] External Department Unsolicited Sanjeev Lopez, DO [address] [place], [place] [phone] Social History Tobacco Use Types Packs/Day Years [...] 01/29/2025 9:00 AM EDT Office Visit [facility] [address] [place] [phone] Georgi Carreon, DPM [address] [place], [place] [phone] 07/29/2025 3:00 PM EDT Office Visit [facility] [address] [facility] [place] [address] Sanjeev Lopez, DO [address] [place], [place] [address] documented as of this encounter Procedures Procedure Name Priority Date/Time Associated Diagnosis Comments MM TOMOSYNTHESIS DIAGNOSTIC BI 03/13/2024 2:58 PM EST documented in this encounter Results * MM TOMOSYNTHESIS DIAGNOSTIC BI (03/13/2024 2:58 PM EST) Anatomical Region Laterality Modality Other 03/13/2024 2:58 PM EST Narrative 03/13/2024 2:59 PM EST [address] [address] Mammography Report Signed Patient: CHAR DUMONT MR#: [id number] : 1980 Acct:[id number] Age/Sex: 43 / F ADM Date: 03/13/24 Loc: MAMMO Attending Dr: Sanjeev Lopez D.O. Ordering Physician: Sanjeev Lopez D.O. Results: Date of Service: 03/13/24 Follow Up: Procedure(s): MM tomosynthesis diagnostic BI Accession Number(s): [id number] cc: Radha Sanchez M.D.; Sanjeev Lopez D.O. Patient Name: CHAR DUMONT MR#: [id number] : 1980 Exam Date: 03/13/2024 Ordering Doctor: [...] at age 67. LOCATION: The [facility] BREAST COMPOSITION: There are scattered areas of [...] Signed By: 03/13/24 1459 DD/ 1458 TD/TT: Field Servicer: Procedure Note Radiology, Radiologist, - 03/13/2024 [place] [address] Mammography Report Signed Patient: CHAR DUMONT [facility]#: [id number] : 1980Acct:[id number] Age/Sex: 43 / FADM Date: 03/13/24 Loc: MAMMO Attending Dr: Sanjeev Lopez D.O. Ordering Physician: Jessica,Sanjeev D.O.Results: Date of Service: 03/13/24Follow Up: Procedure(s): MM tomosynthesis diagnostic BI Accession Number(s): [id number] cc: Radha Sanchez M.D.; Sanjeev Lopez D.O. Patient Name: CHAR DUMONT MR#: [id number] : 1980 Exam Date: 03/13/2024 Ordering Doctor: [...] at age 67. LOCATION: The [facility] BREAST COMPOSITION: There are scattered areas of [...] on 03/13/2024 at 14:58 Dictated By: Mj Sliva M.D. Signed By:03/13/24 1459 DD/ 1458 TD/TT: Field Servicer: us Sanjeev Jessica DO [facility] Final Result documented in this encounter Visit Diagnoses Not on filedocumented in this encounter Care Teams Fixture Designer Relationship Specialty Start Date End Date Radha Sanchez MD [address] [place] [phone] PCP - General Family Medicine 12/12/22 documented as of this encounter
--- OUTSIDE RECORDS SUMMARY | 2025-01-16 10:30 | XMS_ITS | Encounter Summary ---
Author Organization [facility] Address [address] [facility] [place] [address] Care Team Providers Care Facility Service Manager Name Role Phone Radha Sanchez MD Primary Care Provider [phone] Encounter Details Date Type Department Care Team (Late st Contact Info) Description 03/22/2024 Abstract [facility] [address] [facility] [address] Sanjeev Lopez DO [address] [facility] [place] [address] Social History Tobacco Use Types Packs/Day Years [...] Office Visit [facility] [address] [place] [phone] Georgi Carreon DPM [address] [place] [address] 07/29/2025 3:00 PM EDT Office Visit [facility] [address] [facility] [place] [address] Sanjeev Lopez DO [address] [facility] [place] [address] documented as of this encounter Visit Diagnoses Not on filedocumented in this encounter Care Teams Facility Service Manager Relationship Specialty Start Date End Date Radha Sanchez MD [address] [facility] [place] [address] PCP - General Family Medicine 12/12/22 documented as of this encounter
--- OUTSIDE RECORDS SUMMARY | 2025-01-16 10:30 | XMS_ITS | Clinical Summary ---
Author Organization [facility] Address [address] [place] [address] Care Team Providers Care Medtronics Technician Name Role Phone Radha Sanchez MD Primary Care Provider [phone] Allergies Active Allergy Reactions Criticality Noted Date [...] (one) time per week. 06/14/19 25 Active swbbpcevfohg-hui-q scott-FA-vit K 18 mg iron-400 mcg-25 mcg [...] patient's age to complete this topic Insurance [facility] Member Subscriber Plan / Payer (Ef fective 2024-Present) Name:Karuna Dumont Relation to Subscriber:Spouse Name:ROBERT DUMONT Date of :1984 Address: [address] [place] [address] Payer ID:[id number] (NAIC) Type:Not on file Address: [facility] [address] [place] [id number] Care Teams Medtronics Technician Relationship Specialty Start Date End Date Radha Sanchez MD [address] [facility] PCP - General 06/21/24
--- OUTSIDE RECORDS SUMMARY | 2025-01-16 10:30 | XMS_ITS | Clinical Summary ---
Author Organization [employer] Address [facility] [address] [place] [address] Care Team Providers Care Social And Political Studies Professor Name Role Phone Radha Sanchez MD Primary Care Provider [phone] Allergies Active Allergy Reactions Criticality Noted Date [...] 01/03/2025 Orders Only [facility] [address] [place] [address] [address] [place] [address] Jo Myeer APRN-CNP 11/05/2024 Orders Only [facility] [address] [facility] [address] [place] [address] Jo Meyer APRN-CNP 10/21/2024 Travel from Last [...] drink = 0.6 oz pur e alcohol) [facility] Utilities Answer Date Recorded In the past [...] pain management Medical Devices Implanted Type Area Hog Sticker Device Identifier Shelf Expiration Date Model / Serial / Lot Staple [id number] Str Grt Wht Jaws Ntnl Bn Rpl [id number] - Sna - [id number] Implanted:Qty : 1 on 08/08/2024 by Georgi Carreon DPM at [facility] Orthopedic Implant Left: Foot [employer] 10/15/2028 [id number] 020-S / NA / [id number] Staple 54p99ct Str Grt Wht Jaws Ntnl Bn Rpl [id number] - Sna - [id number] Implanted:Qty : 1 on 08/08/2024 by Georgi Carreon DPM at [facility] Orthopedic Implant Left: Foot [employer] 05/31/2028 [id number] 515-S / NA / [id number] Screw Bn 13mm 2mm Bite Mnstr St Ns - Sna - [id number] Implanted:Qty : 1 on 08/08/2024 by Georgi Carreon DPM at [facility] Screw Left: Foot [employer] [id number] 13S / NA / NA Screw Bn 10mm 2mm Hd Mn-Mnstr St Ns - [id number] Implanted:Qty : 2 on 08/08/2024 by Georgi Carreon DPM at [facility] Screw Left: Foot [employer] [id number] 10S / / Explanted Type Area Hog Sticker Device Identifier Shelf Expiration Date Model / Serial / Lot Wire Fx Krsh 1.6mm 100mm 1 End Troc Tip Smth - [id number] Explanted:Qty : 4 on 08/08/2024 at [facility] Orthopedic Implant Left: Foot [employer] [id number] 610 / / Wire Fx Krsh 1.6mm 150mm 1 End Troc Tip Smth Rpl [id number] - [id number] Explanted:Qty : 1 on 08/08/2024 at [facility] Orthopedic Implant Left: Foot [employer] [id number] 615 / / Wire Fx Krsh .9mm 150mm 1 End Troc Pnt Smth Ns - [id number] Explanted:Qty : 2 on 08/08/2024 by Georgi Carreon DPM at [facility] Orthopedic Implant Left: Foot [employer] [id number] 915 / / Guidewire Orth 1.6mm 150mm 2 Blnt Smth - [id number] Explanted:Qty : 1 on 08/08/2024 at [facility] Other Implant Left: Foot [employer] [id number] 615 / / Screw Bn 12mm 2mm Hd Mn-Mnstr St Ns - Sna - [id number] Explanted:Qty : 1 on 08/08/2024 by Georgi Carreon DPM at [facility] Screw Left: Foot [employer] [id number] 12S / NA / NA Insurance [employer]GEL[employer] Advance Directives * Full Code (Latest Code Status on File) Date Activated Date Inactivated Comments 01/25/2024 2:30 PM 01/26/2024 2:17 PM Care Teams Social And Political Studies Professor Relationship Specialty Start Date End Date Radha Sanchez MD [address] [place] [address] PCP - General 03/13/23
--- OUTSIDE RECORDS SUMMARY | 2025-01-16 10:30 | XMS_ITS | Encounter Summary ---
Author Organization [facility] Address [address] [place] [address] Care Team Providers Care Computer Equipment Repairer Name Role Phone Radha Sanchez MD Primary Care Provider [phone] Encounter Details Date Type Department Care Team (Late st Contact Info) Description 10/25/2023 Clinisync Result Encounter [facility]OM[facility] External Department Unsolicited Nick Loepz, DO [address] [place] [address] [address] [place], [place] [phone] Social History Tobacco Use Types Packs/Day Years [...] Office Visit [facility] [address] [place] [phone] Georgi Carreon, DPMiles [address] [place], [place] [address] 07/29/2025 3:00 PM EDT Office Visit [facility] [address] [facility] [phone] Nick Lopez DO [address] [facility] [place] [address] documented as of this encounter Procedures Procedure [...] EDT Narrative 10/25/2023 11:13 AM EDT The [address] [address] Ultrasound Report Signed Patient: CHAR DUMONT MR#: [id number] : 1980 Acct:[id number] Age/Sex: 42 / F ADM Date: 10/25/23 Loc: NOMS Attending Dr: Nick Lopez D.O. Ordering Physician: Nick Lopez D.O. Date of Service: 10/25/23 Procedure(s): US pelvis w/ transvaginal Accession Number(s): [id number] cc: Radha Sanchez M.D.; Nick Lopez D.O. The [place] [id number] Patient Name: CHAR DUMONT MRN: TBH:[id number] date: 1980 Sex: F Assigned Patient Location: NOMS Current Patient Location: LAB Accession/Order Number: [id number] Exam Date: 10/25/2023 09:07 Report Date: 10/25/2023 [...] Signed By: 10/25/23 1113 DD/ 1110 TD/TT: Relay Tester: Procedure Note Radiology, Radiologist, MD - 10/25/2023 [place] [address] Ultrasound Report Signed Patient: CHAR DUMONT DMR#: [id number] : 1980Acct:[id number] Age/Sex: 42 / FADM Date: 10/25/23 Loc: NOMS Attending Dr: Nick Lopez D.O. Ordering Physician: Nick Lopez D.O. Date of Service: 10/25/23 Procedure(s): US pelvis w/ transvaginal Accession Number(s): [id number] cc: Radha Sanchez M.D.; Nick Lopez D.O. [place] [id number] Patient Name: CHAR DUMONT MRN: TBH:[id number] date: 1980 Sex: F Assigned Patient Location: [facility] Current Patient Location: LAB Accession/Order Number: [id number] Exam Date: 10/25/2023 09:07 Report Date: 10/25/2023 [...] M.D. Signed By:10/25/23 1113 DD/ 1110 TD/TT: Relay Tester: us Nick Jessica DO [facility] Final Result * ALL THYROXINE (T4) FREE (10/25/2023 9:55 AM EDT) FREE T4 1.24 0.76 - 1.46 ng/dL TB 10/25/2023 9:55 AM EDT 10/25/2023 9:56 AM EDT Narrative [facility] - 10/25/2023 11:52 AM EDT Nick Jessica DO [facility] Final Result [facility] * [facility] APTT (10/25/2023 9:55 AM EDT) PARTIAL THROMBOPLASTIN TIME 29.5 22.3 - 36.2 sec TB 10/25/2023 9:55 AM EDT 10/25/2023 9:56 AM EDT Narrative [facility] - 10/25/2023 11:49 AM EDT [facility] Final Result Performing Organization Address [facility] Co de Phone Number [facility] * [facility] PROTHROMBIN TIME INR W/O COUM (10/25/2023 9:55 AM EDT) PROTHROMBIN TIME 10.5 9.0 - 11.6 sec TB [facility]H INR 0.99 [facility] Comment: DESIRED INR: 2.0-3.0 CONDITIONS NOT LISTED BELOW 2.5-3.5 FOR PROSTHETIC HEART VALVE REPLACEMENT 2.5-3.5 RECURRENT THROMBOSIS 10/25/2023 9:55 AM EDT 10/25/2023 9:56 AM EDT Narrative [facility] - 10/25/2023 11:49 AM EDT Nick Jessica DO [facility] Final Result [facility] * [facility] PREG QUANT HCG (10/25/2023 9:55 AM EDT) Pathologist [facility] HCG QUANTITATIVE <1 mIU/mL TBH Comment: 5-50 0.2-1 WEEK 50-500 1-2 WEEKS 100-5,000 2-3 WEEKS 500-10,000 3-4 WEEKS 1,000-50,000 4-5 WEEKS 10,000-100,000 5-6 WEEKS 15,000-200,000 6-8 WEEKS 10,000-100,000 2-3 MONTHS 10/25/2023 9:55 AM EDT 10/25/2023 9:56 AM EDT Narrative [facility] - 10/25/2023 11:26 AM EDT Nick Jessica DO [facility] Final Result [facility] * ALL THYROID STIM HORMONE (10/25/2023 9:55 AM EDT) Pathologist [facility] THYROID STIMULATING HORMONE 1.497 0.358 - 3.740 uIU/mL TB[facility] 10/25/2023 9:55 AM EDT 10/25/2023 9:56 AM EDT Narrative [facility] - 10/25/2023 11:26 AM EDT Nick Jessica DO [facility] Final Result [facility] * ALL CBC WITH AUTO DIFF (10/25/2023 [...] us Nick Jessica DO [facility] Final [facility] documented in this encounter Visit Diagnoses Not on filedocumented in this encounter Care Teams Computer Equipment Repairer Relationship Specialty Start Date End Date Radha Sanchez MD [facility] [place] [address] PCP - General Family Medicine 12/12/22 documented as of this encounter
--- OUTSIDE RECORDS SUMMARY | 2025-01-16 10:30 | XMS_ITS | Encounter Summary ---
Author Organization [facility] Address [address] [place] [address] Care Team Providers Care Detective Sergeant Name Role Phone Radha Sanchez MD Primary Care Provider [phone] Encounter Details Date Type Department Care Team (Late st Contact Info) Description 05/23/2023 Clinisync Result Encounter [facility] External Department Unsolicited Sanjeev Lopez, DO [address] [place] [address] [address] [place], [place] [phone] Social History Tobacco Use Types Packs/Day Years [...] Office Visit [facility] [address] [place] [phone] Georgi Carreon, DPMiles [address] [place], [place] [phone] 07/29/2025 3:00 PM EDT Office Visit [facility] [address] [facility] [place] [phone] Sanjeev Lopez DO [address] [place] [address] documented as of this encounter Procedures Procedure Name Priority Date/Time Associated Diagnosis Comments MM STEREOTACTIC LOC LT 05/23/2023 2:37 PM EST documented in this encounter Results * MM STEREOTACTIC LOC LT (05/23/2023 2:37 PM EST) Anatomical Region Laterality Modality Radiographic Shereen ging 05/23/2023 2:37 PM EST Narrative 05/23/2023 2:38 PM EST [address] [address] Mammography Report Signed Patient: CHAR DUMONT MR#: [id number] : 1980 Acct:[id number] Age/Sex: 42 / F ADM Date: 05/23/23 Loc: MAMMO Attending Dr: Sanjeev Lopez D.O. Ordering Physician: Sanjeev Lopez D.O. Results: Date of Service: 05/23/23 Follow Up: Procedure(s): MM stereotactic loc LT Accession Number(s): [id number] cc: Radha Sanchez M.D.; Sanjeev Lopez D.O. Patient Name: CHAR DUMONT MR#: [id number] : 1980 Exam Date: 05/23/2023 Ordering Doctor: [...] Signed By: 05/23/23 1438 DD/ 1437 TD/TT: Buyer Agent: Procedure Note Radiology, Radiologist, MD - 05/24/2023 [place] [address] Mammography Report Signed Patient: CHAR DUMONT DMR#: [id number] : 1980Acct:[id number] Age/Sex: 42 / FADM Date: 05/23/23 Loc: MAMMO Attending Dr: Sanjeev Lopez D.O. Ordering Physician: Sanjeev Lopez D.O.Results: Date of Service: 05/23/23Follow Up: Procedure(s): MM stereotactic loc LT Accession Number(s): [id number] cc: Radha Sanchez M.D.; Sanjeev Lopez D.O. Patient Name: CHAR DUMNOT MR#: [id number] : 1980 Exam Date: 05/23/2023 Ordering Doctor: [...] M.D. Signed By:05/23/23 1438 DD/ 1437 TD/TT: Buyer Agent: us Sanjeev Jessica DO IMG XR PROCEDURES Final Result documented in this encounter Visit Diagnoses Not on filedocumented in this encounter Care Teams Detective Sergeant Relationship Specialty Start Date End Date Radha Sanchez MD [address] [place] [phone] PCP - General Family Medicine 12/12/22 documented as of this encounter
--- OUTSIDE RECORDS SUMMARY | 2025-01-16 10:30 | XMS_ITS | Encounter Summary ---
Author Organization [facility] Address [address] [place] [address] Care Team Providers Care Registrar College Or University Name Role Phone Radha Sanchez MD Primary Care Provider Encounter Details Date Type Department Care Team (Late st Contact Info) Description 06/09/2023 Clinisync Result Encounter [facility] External Department Unsolicited Sanjeev Lopez, DO [address] [place] [address] [address] [place], [place] [phone] Social History Tobacco Use Types Packs/Day Years [...] Office Visit [facility] [address] [place] [place] [phone] Georgi Carreon, DPMiles [address] [place], [place] [phone] 07/29/2025 3:00 PM EDT Office Visit [facility] [address] [facility] [phone] Sanjeev Lopez DO [address] [facility] [place] [address] documented as of this encounter Procedures Procedure Name Priority Date/Time Associated Diagnosis Comments MM STEREOTACTIC LOC LT 06/09/2023 9:01 AM EST documented in this encounter Results * MM STEREOTACTIC LOC LT (06/09/2023 9:01 AM EST) Anatomical Region Laterality Modality Radiographic Shereen ging 06/09/2023 9:01 AM EST Narrative 06/09/2023 9:02 AM EST [address] [address] Mammography Report Signed Patient: CHAR DUMONT MR#: [id number] : 1980 Acct:[id number] Age/Sex: 42 / F ADM Date: 05/23/23 Loc: MAMMO Attending Dr: Sanjeev Lopez D.O. Ordering Physician: Sanjeev Lopez D.O. Results: Date of Service: 05/23/23 Follow Up: Procedure(s): MM stereotactic loc LT Accession Number(s): [id number] cc: Radha Sanchez M.D.; Sanjeev Lopez D.O. Patient Name: CHAR DUMONT MR#: [id number] : 1980 Exam Date: 05/23/2023 Ordering Doctor: [...] M.D. Signed By: 06/09/23901 DD/ 0 TD/TT: Photo Finish Photographer: Procedure Note Radiology, Radiologist, MD - 06/09/2023 [place] [address] Mammography Report Signed Patient: CHAR DUMONT DMR#: [id number] : 1980Acct:[id number] Age/Sex: 42 / FADM Date: 05/23/23 Loc: MAMMO Attending Dr: Sanjeev Lopez D.O. Ordering Physician: Sanjeev Lopez D.O.Results: Date of Service: 05/23/23Follow Up: Procedure(s): MM stereotactic loc LT Accession Number(s): [id number] cc: Radha Sanchez M.D.; Sanjeev Lopez D.O. Patient Name: CHAR DUMONT MR#: [id number] : 1980 Exam Date: 05/23/2023 Ordering Doctor: [...] Peterson M.D. Signed By:06/09/23901 DD/ 0 TD/TT: Photo Finish Photographer: Sanjeev Lopez DO IM XR PROCEDURES Final Result documented in this encounter Visit Diagnoses Not on filedocumented in this encounter Care Teams Registrar College [employer] University Relationship Specialty Start Date End Date Radha Sanchez MD [address] [place] [phone] PCP - General Family Medicine 12/12/22 documented as of this encounter
--- OUTSIDE RECORDS SUMMARY | 2025-01-16 10:30 | XMS_ITS | Encounter Summary ---
Author Organization [facility] Address [address] [facility] [place] [address] Care Team Providers Care Stone Sawyer Name Role Phone Radha Sanchez MD Primary Care Provider [phone] Encounter Details Date Type Department Care Team (Late st Contact Info) Description 04/18/2024 Abstract [facility] [address] [place] [address] Natalia Choi LPN Social History Tobacco [...] Office Visit [facility] [address] [place] [phone] Georgi Carreon DPMiles [address] [place] [phone] 07/29/2025 3:00 PM EDT Office Visit [facility] [address] [facility] [address] Sanjeev Lopez DO [address] [facility] [place] [address] documented as of this encounter Visit Diagnoses Not on filedocumented in this encounter Care Teams Stone Sawyer Relationship Specialty Start Date End Date Radha Sanchez MD [address] [facility] [place] [phone] PCP - General Family Medicine 12/12/22 documented as of this encounter
--- OUTSIDE RECORDS SUMMARY | 2025-01-16 10:30 | XMS_ITS | Encounter Summary ---
Author Organization [facility] Address [address] [facility] [place] [address] Care Team Providers Care Burrer Operator Name Role Phone Radha Sanchez MD Primary Care Provider [phone] Encounter Details Date Type Department Care Team (Late st Contact Info) Description 01/09/2025 Telephone [facility] [address] [place] [address] [place] [address] Natalia Choi LPN Social [...] will be sent to [facility] Scheduling and [facility] for patient to have drawn next week. Patient will reach out to office with any further questions/concerns. Natalia Celeste LPN documented in this encounter Plan of Treatment Upcoming Encounters Date Type Department Care Team (Late st Contact Info) Description 01/29/2025 9:00 AM EDT Office Visit [facility] [address] [place] [address] Georgi Carreon, DPM [address] [place], [place] [phone] 07/29/2025 3:00 PM EDT Office Visit [facility] [address] [facility] [place] [phone] Sanjeev Lopez DO [address] [facility] [place] [address] Scheduled Orders Name Type Priority Associated Diagnoses [...] development documented in this encounter Care Teams Burrer Operator Relationship Specialty Start Date End Date Radha Sanchez MD [address] [place] [phone] PCP - General Family Medicine 12/12/22 documented as of this encounter
--- OUTSIDE RECORDS SUMMARY | 2025-01-16 10:30 | XMS_ITS | Encounter Summary ---
Author Organization [employer] Address [id number] [address] [place] [address] Care Team Providers Care Continuous Wave Operator Name Role Phone Radha Sanchez MD Primary Care Provider [phone] Encounter Details Date Type Department Care Team (Late st Contact Info) Description 09/20/2021 Telephone [facility] [address] [phone] Willa Stevens Social History Tobacco Use Types [...] documented as of this encounter Care Teams Continuous Wave Operator Relationship Specialty Start Date End Date Radha Sanchez MD [address] [place] [address] PCP - General 03/13/23 documented as of this encounter
--- OUTSIDE RECORDS SUMMARY | 2025-01-16 10:30 | XMS_ITS | Encounter Summary ---
Author Organization [facility] Address [address] [place] [address] Care Team Providers Care Reed Dipper Name Role Phone Radha Sanchez MD Primary Care Provider [phone] Encounter Details Date Type Department Care Team (Late st Contact Info) Description 11/15/2023 Clinisync Result Encounter [facility] External Department Unsolicited Sanjeev Lopez, DO [address] [place] [address] [address] [place], [place] [phone] Social History Tobacco Use Types Packs/Day Years [...] Office Visit [facility] [address] [place] [phone] Georgi Carreon, DPMiles [address] [place], [place] [address] 07/29/2025 3:00 PM EDT Office Visit [facility] [address] [facility] [place] [phone] Sanjeev Lopez DO [address] [facility] [place] [address] documented as of this encounter Procedures Procedure Name Priority Date/Time Associated Diagnosis Comments MM TOMOSYNTHESIS DIAGNOSTIC LT 11/15/2023 11:25 AM EDT documented in this encounter Results * MM TOMOSYNTHESIS DIAGNOSTIC LT (11/15/2023 11:25 AM EDT) Anatomical Region Laterality Modality Other 11/15/2023 11:2 5 AM EDT Narrative 11/15/2023 11:26 AM EDT The [address] [address] Mammography Report Signed Patient: CHAR DUMONT MR#: [id number] : 1980 Acct:[id number] Age/Sex: 42 / F ADM Date: 11/15/23 Loc: MAMMO Attending Dr: Sanjeev Lopez D.O. Ordering Physician: Sanjeev Lopez D.O. Results: Date of Service: 11/15/23 Follow Up: Procedure(s): MM tomosynthesis diagnostic LT Accession Number(s): [id number] cc: Radha Sanchez M.D.; Sanjeev Lopez D.O. Patient Name: CHAR DUMONT MR#: [id number] : 1980 Exam Date: 11/15/2023 Ordering Doctor: [...] stomach cancer at age 67. LOCATION: [facility] BREAST COMPOSITION: There are scattered areas [...] Signed By: 11/15/23 1126 DD/ 1125 TD/TT: Photographer Finish: Procedure Note Radiology, Radiologist, - 11/15/2023 [place] [address] Mammography Report Signed Patient: CHAR DUMONT DMR#: [id number] : 1980Acct:[id number] Age/Sex: 42 / FADM Date: 11/15/23 Loc: MAMMO Attending Dr: Sanjeev Lopez D.O. Ordering Physician: Sanjeev Lopez D.O.Results: Date of Service: 11/15/23Follow Up: Procedure(s): MM tomosynthesis diagnostic LT Accession Number(s): [id number] cc: Radha Sanchez M.D.; Sanjeev Lopez D.O. Patient Name: CHAR DUMONT MR#: [id number] : 1980 Exam Date: 11/15/2023 Ordering Doctor: [...] stomach cancer at age 67. LOCATION: [facility] BREAST COMPOSITION: There are scattered areas [...] M.D. Signed By:11/15/23 1126 DD/ 1125 TD/TT: Photographer Finish: us Sanjeev Jessica DO [facility] Final Result documented in this encounter Visit Diagnoses Not on filedocumented in this encounter Care Teams Reed Dipper Relationship Specialty Start Date End Date Radha Sanchez MD [address] [place] [phone] PCP - General Family Medicine 12/12/22 documented as of this encounter
--- OUTSIDE RECORDS SUMMARY | 2025-01-16 10:30 | XMS_ITS | Encounter Summary ---
Author Organization [facility] Address [address] [facility] [place] [address] Care Team Providers Care College Associate Name Role Phone Radha Sanchez MD Primary Care Provider [phone] Encounter Details Date Type Department Care Team (Late st Contact Info) Description 04/10/2024 Abstract [facility] [address] [place] [address] Natalia Choi LPN Social History Tobacco [...] Office Visit [facility] [address] [place] [phone] Georgi Carreon DPMiles [address] [place] [phone] 07/29/2025 3:00 PM EDT Office Visit [facility] [address] [facility] [place] [phone] Sanjeev Lopez DO [address] [facility] [place] [address] documented as of this encounter Visit Diagnoses Not on filedocumented in this encounter Care Teams College Associate Relationship Specialty Start Date End Date Radha Sanchez MD [address] [facility] [place] [phone] PCP - General Family Medicine 12/12/22 documented as of this encounter
--- OUTSIDE RECORDS SUMMARY | 2025-01-16 10:30 | XMS_ITS | Encounter Summary ---
Author Organization [facility] Address [address] [place] [address] Care Team Providers Care Engineer Design And Construction Name Role Phone Radha Sanchez MD Primary Care Provider [phone] Encounter Details Date Type Department Care Team (Late st Contact Info) Description 06/09/2023 Clinisync Result Encounter [facility] External Department Unsolicited Sanjeev Lopez, DO [address] [place] [address] [address] [place], [place] [phone] Social History Tobacco Use Types Packs/Day Years [...] Office Visit [facility] [address] [place] [phone] Georgi Carreon, DPMiles [address] [place], [place] [phone] 07/29/2025 3:00 PM EDT Office Visit [facility] [address] [facility] [place] [phone] Sanjeev Lopez DO [address] [facility] [place] [address] documented as of this encounter Procedures Procedure Name Priority Date/Time Associated Diagnosis Comments MM POST BIOPSY LT 06/09/2023 9:0 2 AM EST documented in this encounter Results * MM POST BIOPSY LT (06/09/2023 9:02 AM EST) Anatomical Region Laterality Modality Other 06/09/2023 9:02 AM EST Narrative 06/09/2023 9:03 AM EST [address] [address] Mammography Report Signed Patient: CHAR DUMONT MR#: [id number] : 1980 Acct:[id number] Age/Sex: 42 / F ADM Date: 05/23/23 Loc: MAMMO Attending Dr: Sanjeev Lopez D.O. Ordering Physician: Sanjeev Lopez D.O. Results: Date of Service: 05/23/23 Follow Up: Procedure(s): MM post biopsy LT Accession Number(s): [id number] cc: Radha Sanchez M.D.; Sanjeev Lopez D.O. Patient Name: CHAR DUMONT MR#: [id number] : 1980 Exam Date: 05/23/2023 Ordering Doctor: [...] M.D. Signed By: 06/09/23902 DD/ 1 TD/TT: Structural Draftsman: Procedure Note Radiology, Radiologist, MD - 06/09/2023 [place] [address] Mammography Report Signed Patient: CHAR DUMONT DMR#: [id number] : 1980Acct:[id number] Age/Sex: 42 / FADM Date: 05/23/23 Loc: MAMMO Attending Dr: Sanjeev Lopez D.O. Ordering Physician: Sanjeev Lopez D.O.Results: Date of Service: 05/23/23Follow Up: Procedure(s): MM post biopsy LT Accession Number(s): [id number] cc: Radha Sanchez M.D.; Sanjeev Lopez D.O. Patient Name: CHAR DUMONT MR#: [id number] : 1980 Exam Date: 05/23/2023 Ordering Doctor: [...] Peterson M.D. Signed By:06/09/23902 DD/ 1 TD/TT: Structural Draftsman: us Sanjeev Jessica DO [facility] Final Result documented in this encounter Visit Diagnoses Not on filedocumented in this encounter Care Teams Engineer Design And Construction Relationship Specialty [place] [address] [place] [phone] PCP - General Family Medicine 12/12/22 documented as of this encounter
--- OUTSIDE RECORDS SUMMARY | 2025-01-16 10:30 | XMS_ITS | Encounter Summary ---
Author Organization [facility] Address [address] [facility] [place] [address] Care Team Providers Care Breaking Machine Operator Name Role Phone Radha Sanchez MD Primary Care Provider [phone] Encounter Details Date Type Department Care Team (Late st Contact Info) Description 04/16/2024 Abstract [facility] [address] [facility] [place] [address] Sanjeev Lopez DO [address] [facility] [place] [address] Social History Tobacco Use Types Packs/Day Years [...] Office Visit [facility] [address] [place] [phone] Georgi Carreon DPM [address] [place] [address] 07/29/2025 3:00 PM EDT Office Visit [facility] [address] [facility] [place] [address] Sanjeev Lopez DO [address] [facility] [place] [address] documented as of this encounter Visit Diagnoses Not on filedocumented in this encounter Care Teams Breaking Machine Operator Relationship Specialty Start Date End Date Radha Sanchez MD [address] [facility] [place] [address] PCP - General Family Medicine 12/12/22 documented as of this encounter
--- OUTSIDE RECORDS SUMMARY | 2025-01-16 10:30 | XMS_ITS | Encounter Summary ---
Author Organization [employer] Address [id number] [address] [place] [address] Care Team Providers Care Developer Prover Upholstering Name Role Phone Radha Sanchez MD Primary Care Provider [phone] Encounter Details Date Type Department Care Team (Late st Contact Info) Description 01/03/2025 Orders Only [facility] [address] [facility] [address] [place] [address] Jo Meyer, MATERIAL LOADER-LEAD GENERATOR [address] [place] [address] Social History Tobacco Use Types Packs/Day Years Used Date Smoking Tobacco: Never Smokeless Tobacco: Never Alcohol Use Standard Drinks/Week Comments No 0 (1 standard drink = 0.6 oz pur e alcohol) [facility] Utilities Answer Date Recorded In the past 12 months has [employer], gas, oil, or water [employer] threatened to shut off services in your [...] documented as of this encounter Care Teams Developer Prover Upholstering Relationship Specialty Start Date End Date Radha Sanchez MD [address] [place] [phone] PCP - General 03/13/23 documented as of this encounter
--- OUTSIDE RECORDS SUMMARY | 2025-01-16 10:30 | XMS_ITS | Encounter Summary ---
Author Organization [facility] Address [address] [facility] [place] [address] Care Team Providers Care Accounting Clerk Name Role Phone Radha Sanchez MD Primary Care Provider [phone] Encounter Details Date Type Department Care Team (Late st Contact Info) Description 09/18/2023 Abstract [facility] [address] [facility] [place] [address] Sanjeev Lopez DO [address] [facility] [place] [address] Social History Tobacco Use Types Packs/Day Years [...] Office Visit [facility] [address] [place] [phone] Georgi Carreon DPM [address] [place], [place] [phone] 07/29/2025 3:00 PM EDT Office Visit [facility] [address] [facility] [place] [address] Sanjeev Lopez DO [address] [facility] [place] [address] documented as of this encounter Visit Diagnoses Not on filedocumented in this encounter Care Teams Accounting Clerk Relationship Specialty Start Date End Date Radha Sanchez MD [address] [facility] [place] [place] [address] PCP - General Family Medicine 12/12/22 documented as of this encounter
--- OUTSIDE RECORDS SUMMARY | 2025-01-16 10:30 | XMS_ITS | Encounter Summary ---
Author Organization [employer] Address [id number] [address] [place] [address] Care Team Providers Care Farmer Vegetable Name Role Phone Radha Sanchez MD Primary Care Provider [phone] Encounter Details Date Type Department Care Team (Late st Contact Info) Description 09/14/2021 [facility]phone [facility] [address] [facility] [address] [address] [phone] Willa Stevens Social History Tobacco Use Types [...] - 09/14/2021 10:02 AM EDT Marcie from [employer] called regarding lumbar and cervical MRI's. They are scheduled for 09/17, but they are being denied and a peer to peer needs to be set up. Call: [phone] * Telephone Encounter - Willa Mahan - 09/14/2021 10:02 AM EDT Called insurance company to set up peer to peer. Peer to peer scheduled for 09/15 at 2:30pm. Primary phone is the office, secondary phone is [employer]. Scheduled blocked off. * Telephone Encounter - JOSSELYN Melendez - 09/14/2021 10:02 AM EDT Peer to peer completed. Auth # [id number] MRIs approved, [facility]ert notified. Message sent to patient via [employer] * Telephone Encounter - Willa Mahan - [...] documented as of this encounter Care Teams Farmer Vegetable Relationship Specialty Start Date End Date Radha Sanchez MD [address] [place] [address] PCP - General 03/13/23 documented as of this encounter
--- OUTSIDE RECORDS SUMMARY | 2025-01-16 10:30 | XMS_ITS | Encounter Summary ---
Author Organization [facility] Address [address] [facility] [place] [address] Care Team Providers Care Rn Maternal Child Name Role Phone Radha Sanchze MD Primary Care Provider [phone] Encounter Details Date Type Department Care Team (Late st Contact Info) Description 12/22/2023 Abstract [facility] [address] [facility] [place] [address] Sanjeev Lopez DO [address] [facility] [place] [address] Social History Tobacco Use Types Packs/Day Years [...] Office Visit [facility] [address] [place] [phone] Georgi Carreon DPM [address] [place], [place] [phone] 07/29/2025 3:00 PM EDT Office Visit [facility] [address] [facility] [place] [address] Sanjeev Lopez DO [address] [facility] [place] [address] documented as of this encounter Visit Diagnoses Not on filedocumented in this encounter Care Teams Rn Maternal Child Relationship Specialty Start Date End Date Radha Sanchez MD [address] [facility] [place] [address] PCP - General Family Medicine 12/12/22 documented as of this encounter
--- OUTSIDE RECORDS SUMMARY | 2025-01-16 10:30 | XMS_ITS | Encounter Summary ---
Author Organization [facility] Address [address] [facility] [place] [address] Care Team Providers Care Machinist Brake Name Role Phone Radha Sanchez MD Primary Care Provider [phone] Encounter Details Date Type Department Care Team (Late st Contact Info) Description 11/27/2023 Abstract [facility] [address] [facility] [place] [address] Sanjeev Lopez DO [address] [facility] [place] [address] Social History Tobacco Use Types Packs/Day Years [...] Office Visit [facility] [address] [place] [phone] Georgi Carreon DPM [address] [place], [place] [address] 07/29/2025 3:00 PM EDT Office Visit [facility] [address] [facility] [place] [address] Sanjeev Lopez DO [address] [facility] [place] [address] documented as of this encounter Visit Diagnoses Not on filedocumented in this encounter Care Teams Machinist Brake Relationship Specialty Start Date End Date Radha Sanchez MD [address] [facility] [place] [address] PCP - General Family Medicine 12/12/22 documented as of this encounter
--- OUTSIDE RECORDS SUMMARY | 2025-01-16 10:30 | XMS_ITS | Encounter Summary ---
Author Organization [facility] tem Address [id number] [address] [place] [address] Care Team Providers Care Aquatics Director Name Role Phone Radha Sanchez MD Primary Care Provider [phone] Reason for Visit * Reason Onset Date Comments GENETICS 05/01/2024 CLERICAL Encounter Details Date Type Department Care Team (Late st Contact Info) Description 05/01/2024 Telephone [facility] DIVISION OF [facility] [address] [facility] [address] [place] [phone] [facility] [address] [facility] [address] [place] [address] GENETICS (CLERICAL) Social History Tobacco Use Types Packs/Day Years Used Date Smoking Tobacco: Never Smokeless Tobacco: Never Alcohol Use Standard Drinks/Week Comments No 0 (1 standard drink = 0.6 oz pur e alcohol) [facility] Utilities Answer Date Recorded In the past 12 months has [employer], gas, oil, or water [employer] threatened to shut off services in your [...] documented as of this encounter Care Teams Aquatics Director Relationship Specialty Start Date End Date Radha Sanchez MD [address] [place] [address] PCP - General 03/13/23 documented as of this encounter
--- OUTSIDE RECORDS SUMMARY | 2025-01-16 10:30 | XMS_ITS | Encounter Summary ---
Author Organization [facility] Address [address] [facility] [place] [address] Care Team Providers Care Grinding Operator Name Role Phone Radha Sanchez MD Primary Care Provider [phone] Encounter Details Date Type Department Care Team (Late st Contact Info) Description 10/05/2022 Abstract [facility] [address] [place] [address] Sanjeev Lopez DO [address] [facility] [place] [address] Social History Tobacco Use Types Packs/Day Years [...] Office Visit [facility] [address] [place] [phone] Georgi Carreon, NOE [address] [place] [address] 07/29/2025 3:00 PM EDT Office Visit [facility] Bert [facility] [address] [place] [address] Sanjeev Lopez DO [address] [facility] [place] [address] documented as of this encounter Visit Diagnoses Not on filedocumented in this encounter Care Teams Grinding Operator Relationship Specialty Start Date End Date Radha Sanchez MD [address] [place] [address] PCP - General Family Medicine 12/12/22 documented as of this encounter
--- OUTSIDE RECORDS SUMMARY | 2025-01-16 10:30 | XMS_ITS | Encounter Summary ---
Author Organization [facility] Address [address] [place] [address] Care Team Providers Care Adoption Coordinator Name Role Phone Radha Sanchez MD Primary Care Provider [phone] Encounter Details Date Type Department Care Team (Late st Contact Info) Description 07/25/2023 Abstract [facility] Erma MERCED[facility] [address] [place] [address] Lydia Keenan LPN [address] [facility] [place] [place] [address] Social History Tobacco Use Types Packs/Day Years [...] Office Visit [facility] [address] [place] [phone] Georgi Carreon DPM [address] [place], [place] [address] 07/29/2025 3:00 PM EDT Office Visit [facility] [address] [facility] [place] [address] Sanjeev Lopez DO [address] [facility] [place] [address] documented as of this encounter Visit Diagnoses Not on filedocumented in this encounter Care Teams Adoption Coordinator Relationship Specialty Start Date End Date Radha Sanchez MD [address] [place] [facility] [address] PCP - General Family Medicine 12/12/22 documented as of this encounter
--- OUTSIDE RECORDS SUMMARY | 2025-01-16 10:30 | XMS_ITS | Encounter Summary ---
Author Organization [facility] Address [address] [facility] [place] [address] Care Team Providers Care Security Patrol Driver Name Role Phone Radha Sanchez MD Primary Care Provider [phone] Encounter Details Date Type Department Care Team (Late st Contact Info) Description 12/07/2023 Abstract [facility] [address] [place] [address] Sanjeev Lopez DO [address] [facility] [place] [address] Social History Tobacco Use Types Packs/Day Years [...] Office Visit [facility] [address] [place] [address] Georgi Carreon DPM [address] [place], [place] [phone] 07/29/2025 3:00 PM EDT Office Visit [facility] Bert MERCEDES [address] [place] [address] Sanjeev Lopez DO [address] [facility] [place] [address] documented as of this encounter Visit Diagnoses Not on filedocumented in this encounter Care Teams Security Patrol Driver Relationship Specialty Start Date End Date Radha Sanchez MD [address] [facility] [place] [address] PCP - General Family Medicine 12/12/22 documented as of this encounter
--- OUTSIDE RECORDS SUMMARY | 2025-01-16 10:30 | XMS_ITS | Encounter Summary ---
Author Organization [facility] Address [address] [facility] [place] [place] [address] Care Team Providers Care Picture Framer Name Role Phone Radha Sanchez MD Primary Care Provider [phone] Encounter Details Date Type Department Care Team (Late st Contact Info) Description 12/28/2023 Abstract [facility] [address] [facility] [place] [address] Sanjeev Lopez DO [address] [facility] [place] [address] Social History Tobacco Use Types Packs/Day Years [...] Office Visit [facility] [address] [place] [address] Georgi Carreon DPM [address] [place], [place] [address] 07/29/2025 3:00 PM EDT Office Visit [facility] Bert MERCEDES [address] [facility] [place] [address] Sanjeev Lopez DO [address] [facility] [place] [address] documented as of this encounter Visit Diagnoses Not on filedocumented in this encounter Care Teams Picture Framer Relationship Specialty Start Date End Date Radha Sanchez MD [address] [place] [address] PCP - General Family Medicine 12/12/22 documented as of this encounter
--- OUTSIDE RECORDS SUMMARY | 2025-01-16 10:30 | XMS_ITS | Encounter Summary ---
Author Organization [facility] tem Address [id number] [address] [place] [address] Care Team Providers Care Toolmaker Name Role Phone Radha Sanchez MD Primary Care Provider [phone] Reason for Referral * Diagnostic Imaging (Routine) - Closed Specialty Diagnoses / Procedures Referred By Contac t Referred To Contact Radiology Diagnoses Demyelinating disease of the spinal cord ([facility]) Procedures MR brain with and without contrast Royal Boateng MD Phone: tel: fax: [address] [address] Phone: tel: Referral ID Status Reason Start Date Expiration Date Visits Re quested Visits Authorized [id number] Closed 12/16/2021 01/30/2022 1 1 Encounter Details Date Type Department Care Team (Late st Contact Info) Description 12/09/2021 Orders Only [facility] [address] [facility] [address] [place] [address] Royal Boateng MD [address] [facility] [address] [place] [address] Demyelinating disease of the spinal cord ([facility]) Social History Tobacco Use Types Packs/Day [...] documented as of this encounter Care Teams Toolmaker Relationship Specialty Start Date End Date Radha Sanchez MD [address] [place] [address] PCP - General 03/13/23 documented as of this encounter
--- OUTSIDE RECORDS SUMMARY | 2025-01-16 10:30 | XMS_ITS | Clinical Summary ---
Author Organization [facility] Healthcare Address [address] [place] [address] Care Team Providers Care Auger Supervisor Name Role Phone Radha Sanchez MD Primary Care Provider [phone] Allergies Active Allergy Reactions Criticality Noted Date Comments Topiramate Swelling Low 12/19/2013 Medications Alcohol Swabs (B-D SINGLE USE SWABS REGULAR) pads 024 Active Lancets (OneTouch Delica Plus [id number]) misc 024 Active MONOJECT 3CC SYRINGE 3 [...] Description 01/09/2025 Telephone [facility] Bert [facility] [address] [facility] [place] [address] Natalia Choi LPN 12/27/2024 Refill [facility] [address] [place] [address] Sanjeev Lopez, DO Insulin resistance; Weight gain 12/24/2024 Telephone [facility] [address] [facility] [place] [address] Natalia Choi, ESPERANZA 11/16/2024 Refill [facility] [address] [facility] [place] [address] Sanjeev Lopez DO Nausea 10/29/2024 9:25 AM EDT Ancillary Procedure [facility] [address] [place] [address] 10/29/2024 9:00 AM EDT Office Visit [facility] [address] [place] [address] Georgi Carreon, NOE S/P foot surgery (Primary Dx); Left foot pain 10/29/2024 Bamboo flowsheet [facility] [address] [place] [address] Georgi Carreon DPM 10/29/2024 Travel 10/28/2024 Travel 10/25/2024 Refill [facility] [place] [facility] [address] [facility] [place] [address] Sanjeev Lopez DO Skin irritation from Last [...] EDT Office Visit [facility] [address] [place] [address] Georgi Carreon, DPM [address] [place], [place] [address] 07/29/2025 3:00 PM EDT Office Visit [facility] [place] [facility] [address] [facility] [place] [address] Sanjeev Lopez DO [address] [facility] [address] [place], [place] [address] Procedures Procedure Name Priority Date/Time Associated Diagnosis [...] Last 3 Months Insurance BCBS Care Teams Auger Supervisor Relationship Specialty Start Date End Date Radha Sanchez MD [address] [place] [address] PCP - General Family Medicine 12/12/22
--- OUTSIDE RECORDS SUMMARY | 2025-01-16 10:30 | XMS_ITS | Encounter Summary ---
Author Organization [facility] Address [address] [place] [address] Care Team Providers Care Dial Mounter Name Role Phone Radha Sanchez MD Primary Care Provider [phone] Encounter Details Date Type Department Care Team (Late st Contact Info) Description 04/10/2024 Abstract [facility] [address] [place] [address] Natalia Choi LPN Social [...] Office Visit [facility] [address] [place] [address] Georgi Carreon DPMiles [address] [place] [phone] 07/29/2025 3:00 PM EDT Office Visit [facility] [address] [facility] [place] [address] Sanjeev Lopez DO [address] [facility] [place] [address] documented as of this encounter Visit Diagnoses Not on filedocumented in this encounter Care Teams Dial Mounter Relationship Specialty Start Date End Date Radha Sanchez MD [address] [place] [address] PCP - General Family Medicine 12/12/22 documented as of this encounter
--- OUTSIDE RECORDS SUMMARY | 2025-01-16 10:30 | XMS_ITS | Encounter Summary ---
Author Organization [facility] Address [id number] [address] [place] [address] Care Team Providers Care Toolroom Helper Name Role Phone Radha Sanchez MD Primary Care Provider [phone] Reason for Visit * Reason Comments Med Refill Encounter Details Date Type Department Care Team (Late st Contact Info) Description 12/23/2021 Refill [facility] [address] [facility] [address] [place] [address] Royal Boateng MD [address] [employer] [facility] [address] [place] [address] Social History Tobacco Use Types [...] documented as of this encounter Care Teams Toolroom Helper Relationship Specialty Start Date End Date Radha Sanchez MD [address] [place] [phone] PCP - General 03/13/23 documented as of this encounter
--- OUTSIDE RECORDS SUMMARY | 2025-01-16 10:30 | XMS_ITS | Encounter Summary ---
Author Organization [facility] Address [address] [facility] [place] [address] Care Team Providers Care Inspector Motor Vehicles Name Role Phone Radha Sanchez MD Primary Care Provider [phone] Encounter Details Date Type Department Care Team (Late st Contact Info) Description 11/22/2023 Orders Only [facility] [address] [place] [address] Lydia Keenan LPN [address] [place] [id number] Social History Tobacco Use Types Packs/Day Years [...] Office Visit [facility] [address] [place] [address] Georgi Carreon DPM [address] [place], [place] [address] 07/29/2025 3:00 PM EDT Office Visit [facility] [address] [facility] [place] [address] Sanjeev Lopez DO [address] [facility] [place] [address] documented as of this encounter Procedures Procedure Name Priority Date/Time Associated Diagnosis Comments PAP SMEAR Routine 07/19/2023 12:00 AM EDT documented in this encounter Results * Pap Smear (07/19/2023 12:00 AM EDT) Swab Cervical swab / Unknown Jessica Nurse [facility] CYTOLOGY ORDERABLES Final Result EXTERNAL LAB documented in this encounter Visit Diagnoses Not on filedocumented in this encounter Care Teams Inspector Motor Vehicles Relationship Specialty Start Date End Date Radha Sanchez MD [address] [facility] [place] [address] PCP - General Family Medicine 12/12/22 documented as of this encounter
--- OUTSIDE RECORDS SUMMARY | 2025-01-16 10:30 | XMS_ITS | Encounter Summary ---
Author Organization [facility] Address [address] [facility] [place] [address] Care Team Providers Care Internet Manager Name Role Phone Radha Sanchez MD Primary Care Provider [phone] Encounter Details Date Type Department Care Team (Late st Contact Info) Description 04/15/2024 Abstract [facility] [address] [facility] [place] [address] Sanjeev Lopez DO [address] [facility] [place] [address] Social History Tobacco Use Types Packs/Day Years [...] Office Visit [facility] [address] [place] [address] Georgi Carreon DPM [address] [place] [address] 07/29/2025 3:00 PM EDT Office Visit [facility] Bert MERCEDES [address] [facility] [place] [address] Sanjeev Lopez DO [address] [facility] [place] [address] documented as of this encounter Visit Diagnoses Not on filedocumented in this encounter Care Teams Internet Manager Relationship Specialty Start Date End Date Radha Sanchez MD [address] [facility] [place] [address] PCP - General Family Medicine 12/12/22 documented as of this encounter
--- OUTSIDE RECORDS SUMMARY | 2025-01-16 10:30 | XMS_ITS | Encounter Summary ---
Author Organization [facility] Address [address] [facility] [place] [address] Care Team Providers Care Economic Development Coordinator Name Role Phone Radha Sanchez MD Primary Care Provider [phone] Encounter Details Date Type Department Care Team (Late st Contact Info) Description 12/06/2023 Abstract [facility] Bert [facility] [address] [place] [address] Tatum Atkinson LPN [address] [employer] [place] [phone] Social History Tobacco Use Types Packs/Day Years [...] Office Visit [facility] [place] [facility] [address] [facility] [place] [address] Georgi Carreon DPM [address] [place], [place] [address] 07/29/2025 3:00 PM EDT Office Visit [facility] Bert MERCEDES [address] [facility] [place] [address] Sanjeev Lopez DO [address] [place] [address] documented as of this encounter Visit Diagnoses Not on filedocumented in this encounter Care Teams Economic Development Coordinator Relationship Specialty Start Date End Date Radha Sanchez MD [address] [facility] [place] [address] PCP - General Family Medicine 12/12/22 documented as of this encounter
--- OUTSIDE RECORDS SUMMARY | 2025-01-16 10:31 | XMS_ITS | Encounter Summary ---
Author Organization [facility] Address [address] [place] [address] Care Team Providers Care Warehouser Name Role Phone Radha Sanchez MD Primary Care Provider [phone] Encounter Details Date Type Department Care Team (Late st Contact Info) Description 05/10/2023 Clinisync Result Encounter NOMS External Department Unsolicited Sanjeev Lopez, DO [address] [place] [address] [address] [place], [place] [address] Social History Tobacco Use Types Packs/Day Years [...] Office Visit [facility] [address] [place] [address] Georgi Carreon, DPMiles [address] [place], [place] [address] 07/29/2025 3:00 PM EDT Office Visit [facility] Bert [facility] [address] [facility] [place] [address] Sanjeev Lopez, [address] [facility] [place] [address] documented as of this encounter Procedures Procedure [...] EST Narrative 05/15/2023 1:13 PM EST The [address] [address] Mammography Report Signed Patient: CHAR DUMONT MR#: [id number] : 1980 Acct:[id number] Age/Sex: 42 / F ADM Date: 05/10/23 Loc: MAMMO Attending Dr: Sanjeev Lopez D.O. Ordering Physician: Sanjeev Lopez D.O. Results: Date of Service: 05/10/23 Follow Up: Procedure(s): MM diagnostic mammo unilat LT Accession Number(s): [id number] cc: Radha Sanchez M.D.; Sanjeev Lopez D.O. Patient Name: CHAR DUMONT MR#: [id number] : 1980 Exam Date: 05/10/2023 Ordering Doctor: [...] age 67. LOCATION: The [facility] BREAST COMPOSITION: Scattered areas fibroglandular density. [...] Signed By: 05/15/23 1313 DD/ 0842 TD/TT: Digital Solution Architect: Procedure Note Radiology, Radiologist, - 06/07/2023 [place] [address] Mammography Report Signed Patient: CHAR DUMONT DMR#: [id number] : 1980Acct:[id number] Age/Sex: 42 / FADM Date: 05/10/23 Loc: MAMMO Attending Dr: Sanjeev Lopez D.O. Ordering Physician: Sanjeev Lopez D.O.Results: Date of Service: 05/10/23Follow Up: Procedure(s): MM diagnostic mammo unilat LT Accession Number(s): [id number] cc: Radha Sanchez M.D.; Sanjeev Lopez D.O. Patient Name: CHAR DUMONT MR#: [id number] : 1980 Exam Date: 05/10/2023 Ordering Doctor: [...] age 67. LOCATION: The [facility] BREAST COMPOSITION: Scattered areas fibroglandular density. [...] M.D. Signed By:05/15/23 1313 DD/ 0842 TD/TT: Digital Solution Architect: Sanjeev Jessica DO [facility] Final Result * [facility] TESTOSTERONE FREE/TOT EQUILIB (05/10/2023 7:48 AM EST) Pathologist [facility] TESTOSTERONE 22 8 - 60 ng/dL [facility] FREE TESTOSTERONE(DIRE CT) 0.6 0.0 - 4.2 pg/mL [facility] Comment: Performed at: [address] [id number] Oracle Manager: Theron Roblero PhD, Phone: [phone] Performed at: [address] [id number] Oracle Manager: Katelynn Macdonald MD, Phone: [phone] 05/10/2023 7:48 AM EST 05/10/2023 7:51 AM EST Narrative [facility]IN[facility] - 06/15/2023 1:47 PM EDT Sanjeev Jessica DO CLIN[facility] Final Result Performing Organization Address City/[facility]/ZIP Co de Phone Number [facility] * [facility] THYROID ANTIBODIES (05/10/2023 7:48 AM EST) [facility] THYROID PEROXIDASE (TPO) AB 11 0 - 34 IU/mL [facility] THYROGLOBULIN ANTIBODY <1.0 0.0 - 0.9 IU/mL [facility] Comment: Thyroglobulin Antibody measured by Sarah Terral Methodology Performed at: [address] [id number] Oracle Manager: Theron Roblero PhD, Phone: [phone] 05/10/2023 7:48 AM EST 05/10/2023 7:51 AM EST Narrative CLIN[facility]NC - 06/15/2023 1:47 PM EDT us Sanjeev Jessica DO CLIN[facility] Final Result Performing Organization Address City/[facility]/ZIP Co de Phone Number [facility] * [facility] SEROTONIN (05/10/2023 7:48 AM EST) SEROTONIN, SERUM 105 31 - 207 ng/mL [facility] Comment: This test was developed and its performance characteristics determined by [facility]. It has not been cleared or approved by the Food and Drug Administration. Performed at: [address] [id number] Oracle Manager: Katelynn Macdonald MD, Phone: [phone] 05/10/2023 7:48 AM EST 05/10/2023 7:51 AM EST Narrative CLIN[facility]YNC - 06/15/2023 1:47 PM EDT [facility] Final Result Performing Organization Address [facility]/ZIP Co de Phone Number [facility] * METRO SEX BINDING HORMONE (SHBG), TESTOSTERONE, FREE AND BIOAVAILABLE (05/10/2023 7:48 AM EST) [facility] SEX HORM BINDING GLOB, SERUM 49.1 24.6 - 122.0 nmol/L [facility] Comment: Performed at: [address] [id number] Oracle Manager: Theron Roblero PhD, Phone: [phone] 05/10/2023 7:48 AM EST 05/10/2023 7:51 AM EST Narrative CLINISYNC - 06/15/2023 1:47 PM EDT Sanjeev Jessica DO CLINISYNC Final Result Performing Organization Address City/[facility]/ZIP Co de Phone Number [facility] * ALL T3 REVERSE (05/10/2023 7:48 AM EST) [facility] REVERSE T3, SERUM 23.0 9.2 - 24.1 ng/dL [facility] Comment: This test was developed and its performance characteristics determined by [facility]. It has not been cleared or approved by the Food and Drug Administration. Performed at: [address] [id number] Oracle Manager: Katelynn Macdonald MD, Phone: [phone] 05/10/2023 7:48 AM EST 05/10/2023 7:51 AM EST Narrative CLINISYNC - 06/15/2023 1:47 PM EDT Sanjeev Jessica DO CLINISYNC Final Result Performing Organization Address [facility]/ZIP Co de Phone Number [facility] * ALL ESTRONE(E1) (05/10/2023 7:48 AM EST) [...] DO CLINISYNC Final Result Performing Organization Address [facility] Co de Phone Number [facility] * ALL PROGESTERONE (05/10/2023 7:48 AM EST) PROGESTERONE 0.1 . ng/mL [facility] Comment: Follicular phase 0.1 - 0.9 Luteal phase 1.8 - 23.9 Ovulation phase 0.1 - 12.0 First trimester 11.0 - 44.3 Second trimester 25.4 - 83.3 Third trimester 58.7 - 214.0 Postmenopausal 0.0 - 0.1 Performed at: [address] [id number] Oracle Manager: Theron Roblero PhD, Phone: [phone] 05/10/2023 7:48 AM EST 05/10/2023 7:51 AM EST Narrative CLINISYNC - 06/15/2023 1:47 PM EDT us Sanjeev Jessica DO CLIN[facility] Final Result [facility] TB * ALL DHEA SULFATE (05/10/2023 7:48 AM EST) DHEA-SULFATE 194.0 57.3 - 279.2 ug/dL [facility] 05/10/2023 7:48 AM EST 05/10/2023 7:51 AM EST Narrative CLINISYNC - 06/15/2023 1:47 PM EDT Sanjeev Jessica DO CLINISYNC Final Result Performing Organization Address City/[facility]/ZIP Co de Phone Number [facility] documented in this encounter Visit Diagnoses Not on filedocumented in this encounter Care Teams Warehouser Relationship Specialty [place] [address] [place] [phone] PCP - General Family Medicine 12/12/22 documented as of this encounter
--- OUTSIDE RECORDS SUMMARY | 2025-01-16 10:31 | XMS_ITS | Encounter Summary ---
Author Organization [facility] Address [address] [place] [address] Care Team Providers Care Behavior Interventionist Name Role Phone Radha Sanchez MD Primary Care Provider [phone] Encounter Details Date Type Department Care Team (Late st Contact Info) Description 05/10/2023 Clinisync Result Encounter [facility] External Department Unsolicited Sanjeev Lopez, DO [address] [place] [address] [address] [place], [place] [phone] Social History Tobacco Use Types Packs/Day Years [...] Office Visit [facility] [address] [place] [phone] Georgi Carreon, DPMiles [address] [place], [place] [phone] 07/29/2025 3:00 PM EDT Office Visit [facility] [address] [place] [phone] Sanjeev Lopez DO [address] [facility] [place] [address] documented as of this encounter Procedures Procedure [...] EST Narrative 05/10/2023 8:43 AM EST The [address] [address] Mammography Report Signed Patient: CHAR DUMONT MR#: [id number] : 1980 Acct:[id number] Age/Sex: 42 / F ADM Date: 05/10/23 Loc: MAMMO Attending Dr: Sanjeev Lopez D.O. Ordering Physician: Sanjeev Lopez D.O. Results: Date of Service: 05/10/23 Follow Up: Procedure(s): MM diagnostic mammo unilat LT Accession Number(s): [id number] cc: Radha Sanchez M.D.; Sanjeev Lopez D.O. Patient Name: CHAR DUMONT MR#: [id number] : 1980 Exam Date: 05/10/2023 Ordering Doctor: [...] at age 67. LOCATION: The [facility] BREAST COMPOSITION: Scattered [...] Silva M.D. Signed By: 05/10/2343 DD/ TD/TT: Operator Control Room: Procedure Note Radiology, Radiologist, - 05/10/2023 [place] [address] Mammography Report Signed Patient: CHAR DUMONT DMR#: [id number] : 1980Acct:[id number] Age/Sex: 42 / FADM Date: 05/10/23 Loc: MAMMO Attending Dr: Sanjeev Lopez D.O. Ordering Physician: Sanjeev Lopez D.O.Results: Date of Service: 05/10/23Follow Up: Procedure(s): MM diagnostic mammo unilat LT Accession Number(s): [id number] cc: Radha Sanchez M.D.; Sanjeev Lopez D.O. Patient Name: CHAR DUMONT MR#: [id number] : 1980 Exam Date: 05/10/2023 Ordering Doctor: [...] at age 67. LOCATION: The [facility] BREAST COMPOSITION: Scattered [...] M.D. Signed By:05/10/23 0843 DD/ 0842 TD/TT: Operator Control Room: Sanjeev Jessica DO [facility] Final Result * ALL THYROXINE (T4) FREE (05/10/2023 7:48 AM EST) FREE T4 1.29 0.76 - 1.46 ng/dL TB 05/10/2023 7:48 AM EST 05/10/2023 7:51 AM EST Narrative [facility] - 05/10/2023 10:22 AM EST Sanjeev Jessica DO [facility] Final Result [facility] * [facility] VITAMIN D 25 [place] (05/10/2023 7:48 AM EST) Pathologist [facility] VITAMIN D 29.0 ng/mL [facility] Comment: <20 ng/mL Vit D deficient 20-<30 ng/mL Vit D insufficient 30-100 ng/mL Vit D sufficient >100 ng/mL Potential Toxicity 05/10/2023 7:48 AM EST 05/10/2023 7:51 AM EST Narrative [facility] - 05/10/2023 10:22 AM EST [facility] Jessica DO [facility] Final Result [facility] * [facility] FERRITIN (05/10/2023 7:48 AM EST) Pathologist [facility] FERRITIN 40.0 8.0 - 252.0 ng/mL TB 05/10/2023 7:48 AM EST 05/10/2023 7:51 AM EST Narrative [facility] - 05/10/2023 10:22 AM EST Sanjeev Jessica DO [facility] Final Result [facility] * MLR HEMOGLOBIN A1C (05/10/2023 7:48 AM EST) Pathologist [facility] GLYCOHEMOGLOBIN A1C 4.9 4.5 - 6.2 % [facility] Comment: ADA RECOMMENDED LIMIT 4.0 - 6.0 ADA THERAPEUTIC TARGET < 7.0 ACTION SUGGESTED > 7.0 ESTIMATED AVERAGE GLUCOSE 94 mg/dL TB 05/10/2023 7:48 AM EST 05/10/2023 7:51 AM EST Narrative [facility] - 05/10/2023 9:33 AM EST Sanjeev Jessica DO [facility] Final Result Performing Organization Address [facility]/ZIP Co de Phone Number [facility] * ALL THYROID STIM HORMONE (05/10/2023 7:48 AM EST) Pathologist [facility] THYROID STIMULATING HORMONE 1.735 0.358 - 3.740 uIU/mL TB 05/10/2023 7:48 AM EST 05/10/2023 7:51 AM EST Narrative [facility] - 05/10/2023 9:02 AM EST [employer] DO [facility] Final Result Performing Organization Address [facility] Co de Phone Number [facility] * ALL THYROXINE (T4) (05/10/2023 7:48 AM EST) Pathologist [facility] T4 THYROXINE 9.00 4.80 - 13.90 ug/dL TB 05/10/2023 7:48 AM EST 05/10/2023 7:51 AM EST Narrative [facility] - 05/10/2023 9:02 AM EST [employer] DO [facility] Final Result Performing Organization Address [facility] Co de Phone Number [facility] * ALL T3 FREE (05/10/2023 7:48 AM EST) Pathologist [facility] FREE T3 2.67 2.18 - 3.98 pg/mL TB 05/10/2023 7:48 AM EST 05/10/2023 7:51 AM EST Narrative [facility] - 05/10/2023 9:02 AM EST us Sanjeev Jessica DO [facility] Final Result Performing Organization Address [facility]/ZIP Co de Phone Number [facility] * TBH GLUCOSE BLOOD (05/10/2023 7:48 AM EST) GLUCOSE 81 74 - 106 mg/dL [facility] 05/10/2023 7:48 AM EST 05/10/2023 7:51 AM EST Narrative [facility] - 05/10/2023 9:02 AM EST us Sanjeev Jessica DO [facility] Final Result Performing Organization Address [facility] Co de Phone Number [facility] documented in this encounter Visit Diagnoses Not on filedocumented in this encounter Care Teams Behavior Interventionist Relationship Specialty Start Date End Date Radha Sanchez MD [address] [place] [phone] PCP - General Family Medicine 12/12/22 documented as of this encounter
--- OUTSIDE RECORDS SUMMARY | 2025-01-16 10:31 | XMS_ITS | Encounter Summary ---
Author Organization [facility] Address [address] [place] [address] Care Team Providers Care Receiving Specialist Name Role Phone Radha Sanchez MD Primary Care Provider Encounter Details Date Type Department Care Team (Late st Contact Info) Description 05/10/2023 Clinisync Result Encounter [facility] External Department Unsolicited Sanjeev Lopez, DO [address] [place] [address] Dr [place], [place] [phone] Social History Tobacco Use Types Packs/Day Years [...] Office Visit [facility] [address] [place] [phone] Georgi Carreon, DPMiles [address] [place], [place] [phone] 07/29/2025 3:00 PM EDT Office Visit [facility] [address] [place] [phone] Sanjeev Lopez DO [address] [place] [address] documented as of this encounter Procedures Procedure Name Priority Date/Time Associated Diagnosis Comments US BREAST LT LIMITED 05/10/2023 8:42 AM EST CORTISOL, FREE DIALYSIS, LCMS Routine 05/10/2023 7:48 AM EST [facility] INSULIN Routine 05/10/2023 7:48 AM EST [facility] ESTRONE Routine 05/10/2023 7:48 AM EST ALL C-PEPTIDE Routine 05/10/2023 7:48 AM EST documented in this encounter Results * US BREAST LT LIMITED (05/10/2023 8:42 AM EST) Anatomical Region Laterality Modality Other 05/10/2023 8:42 AM EST Narrative 05/15/2023 1:13 PM EST The [address] [address] Ultrasound Report Signed Patient: CHAR DUMONT MR#: [id number] : 1980 Acct:[id number] Age/Sex: 42 / F ADM Date: 05/10/23 Loc: MAMMO Attending Dr: Sanjeev Lopez D.O. Ordering Physician: Sanjeev Lopez D.O. Date of Service: 05/10/23 Procedure(s): US breast LT limited Accession Number(s): [id number] cc: Radha Sanchez M.D.; Sanjeev Lopez D.O. Patient Name: CHAR DUMONT MR#: [id number] : 1980 Exam Date: 05/10/2023 Ordering Doctor: [...] at age 67. LOCATION: The [facility] BREAST COMPOSITION: Scattered areas fibroglandular density. [...] Signed By: 05/15/23 1313 DD/ 0842 TD/TT: Rv Detailer: Procedure Note Radiology, Radiologist, MD - 05/15/2023 [place] [address] Ultrasound Report Signed Patient: CHAR DUMONT DMR#: [id number] : 1980Acct:[id number] Age/Sex: 42 / FADM Date: 05/10/23 Loc: MAMMO Attending Dr: Sanjeev Lopez D.O. Ordering Physician: Sanjeev Lopez D.O. Date of Service: 05/10/23 Procedure(s): US breast LT limited Accession Number(s): [id number] cc: Radha Sanchez M.D.; Sanjeev Lopez D.O. Patient Name: CHAR DUMONT MR#: [id number] : 1980 Exam Date: 05/10/2023 Ordering Doctor: [...] at age 67. LOCATION: The [facility] BREAST COMPOSITION: Scattered areas fibroglandular density. [...] M.D. Signed By:05/15/23 1313 DD/ 0842 TD/TT: Rv Detailer: Sanjeev Lopez DO [facility] Final Result * ALL C-PEPTIDE (05/10/2023 7:48 AM EST) C-PEPTIDE, SERUM 2.8 1.1 - 4.4 ng/mL [facility] Comment: C-Peptide reference interval is for fasting patients. Performed at: [address] [id number] Competitive Intelligence Analyst: Theron Roblero PhD, Phone: [phone] 05/10/2023 7:48 AM EST 05/10/2023 7:51 AM EST Narrative [facility] - 05/18/2023 5:08 PM EST Sanjeev Jessica DO [facility] Final Result Performing Organization Address [facility]/ZIP Co de Phone Number [facility] * [facility] ESTRONE (05/10/2023 7:48 AM EST) ESTRONE, SERUM 65 27 - 231 pg/mL [facility] Comment: Range Adult (Premenopausal) 27 - 231 Menstrual Cycle (1-10 days) 19 - 149 Menstrual Cycle (11-20 days) 32 - 176 Menstrual Cycle (21-30 days) 37 - 200 Performed at: [address] [id number] Competitive Intelligence Analyst: Katelynn Macdonald MD, Phone: [phone] 05/10/2023 7:48 AM EST 05/10/2023 7:51 AM EST Narrative [facility] - 05/18/2023 5:08 PM EST [facility] Jessica DO [facility] Final Result Performing Organization Address [facility] Co de Phone Number [facility] * [facility] INSULIN (05/10/2023 7:48 AM EST) INSULIN 7.0 2.6 - 24.9 uIU/mL [facility] Comment: Performed at: [address] [id number] Competitive Intelligence Analyst: Theron Roblero PhD, Phone: [phone] 05/10/2023 7:48 AM EST 05/10/2023 7:51 AM [...] 4 PM 0.042 - 0.872 Performed at: [facility] [address] [place] [id number] Competitive Intelligence Analyst: Kal Archibald MD, Phone: [phone] 05/10/2023 7:48 AM EST 05/10/2023 7:51 AM EST Narrative [facility] - 05/16/2023 6:08 PM EST us Sanjeev Jessica DO LAB BLOOD ORDERABLES Final Resul t [facility] documented in this encounter Visit Diagnoses Not on filedocumented in this encounter Care Teams Receiving Specialist Relationship Specialty Start Date End Date Radha Sanchez MD [address] [place] [address] PCP - General Family Medicine 12/12/22 documented as of this encounter
--- OUTSIDE RECORDS SUMMARY | 2025-01-16 10:31 | XMS_ITS | Encounter Summary ---
Author Organization [employer] Address [id number] [address] [place] [address] Care Team Providers Care Senior Mechanical Engineer Name Role Phone Radha Sanchez MD Primary Care Provider Encounter Details Date Type Department Care Team (Latest Contact Info) Description 01/15/2025 Travel Social History Tobacco Use Types Packs/Day Years Used Date Smoking Tobacco: Never Smokeless Tobacco: Never Alcohol Use Standard Drinks/Week Comments No 0 (1 standard drink = 0.6 oz pur e alcohol) [facility] Utilities Answer Date Recorded In the past [...] documented as of this encounter Care Teams Senior Mechanical Engineer Relationship Specialty Start Date End Date Radha Sanchez MD [address] [place] [address] PCP - General 03/13/23 documented as of this encounter
--- OUTSIDE RECORDS SUMMARY | 2025-01-16 10:31 | XMS_ITS | Encounter Summary ---
Author Organization [facility] Address [address] [place] [address] Care Team Providers Care Submarine Cable Equipment Technician Name Role Phone Radha Sanchez MD Primary Care Provider [phone] Encounter Details Date Type Department Care Team (Late st Contact Info) Description 05/23/2023 Clinisync Result Encounter [facility] External Department Unsolicited Sanjeev Lopez, DO [address] [place] [address] [place], [place] [phone] Social History Tobacco Use Types Packs/Day Years [...] Office Visit [facility] [address] [place] [phone] Georgi Carreon, DPMiles [address] [place], [place] [phone] 07/29/2025 3:00 PM EDT Office Visit [facility] [address] [place] [phone] Sanjeev Lopez DO [address] [place] [address] documented as of this encounter Procedures Procedure Name Priority Date/Time Associated Diagnosis Comments MM POST BIOPSY LT 05/23/2023 2:3 8 PM EST documented in this encounter Results * MM POST BIOPSY LT (05/23/2023 2:38 PM EST) Anatomical Region Laterality Modality Other 05/23/2023 2:38 PM EST Narrative 05/23/2023 2:39 PM EST [address] [address] Mammography Report Signed Patient: CHAR DUMONT MR#: [id number] : 1980 Acct:[id number] Age/Sex: 42 / F ADM Date: 05/23/23 Loc: MAMMO Attending Dr: Sanjeev Lopez D.O. Ordering Physician: Sanjeev Lopez D.O. Results: Date of Service: 05/23/23 Follow Up: Procedure(s): MM post biopsy LT Accession Number(s): [id number] cc: Radha Sanchez M.D.; Sanjeev Lopez D.O. Patient Name: CHAR DUMONT MR#: [id number] : 1980 Exam Date: 05/23/2023 Ordering Doctor: [...] M.D. Signed By: 05/23/23 1439 DD/ TD/TT: Certified Registered Nurse Anesthetist: Procedure Note Radiology, Radiologist, MD - 05/23/2023 [place] [address] Mammography Report Signed Patient: CHAR DUMONT DMR#: [id number] : 1980Acct:[id number] Age/Sex: 42 / FADM Date: 05/23/23 Loc: MAMMO Attending Dr: Sanjeev Lopez D.O. Ordering Physician: Sanjeev Lopez D.O.Results: Date of Service: 05/23/23Follow Up: Procedure(s): MM post biopsy LT Accession Number(s): [id number] cc: Radha Sanchez M.D.; Sanjeev Lopez D.O. Patient Name: CHAR DUMONT MR#: [id number] : 1980 Exam Date: 05/23/2023 Ordering Doctor: [...] M.D. Signed By:05/23/23 1439 DD/ 1438 TD/TT: Certified Registered Nurse Anesthetist: us Sanjeev Jessica DO [facility] Final Result documented in this encounter Visit Diagnoses Not on filedocumented in this encounter Care Teams Submarine Cable Equipment Technician Relationship Specialty Start Date End Date Radha Sanchez MD [address] [place] [phone] PCP - General Family Medicine 12/12/22 documented as of this encounter
--- OUTSIDE RECORDS SUMMARY | 2025-01-16 10:31 | XMS_ITS | Encounter Summary ---
Author Organization [facility] Address [address] [place] [address] Care Team Providers Care Electronic System Engineer Name Role Phone Radha Sanchez MD Primary Care Provider [phone] Encounter Details Date Type Department Care Team (Late Contact Info) Description 07/31/2024 Abstract [facility] [address] [place] [phone] Georgi Carreon DPM [address] [place], [place] [phone] Social History Tobacco Use Types Packs/Day Years [...] Office Visit [facility] [address] [place] [phone] Georgi Carreon DPM [address] [place], [place] [phone] 07/29/2025 3:00 PM EDT Office Visit [facility] [address] [place] [address] Sanjeev Lopez DO [address] [facility] [place] [address] documented as of this encounter Visit Diagnoses Not on filedocumented in this encounter Care Teams Electronic System Engineer Relationship Specialty Start Date End Date Radha Sanchez MD [address] [facility] [place] [address] PCP - General Family Medicine 12/12/22 documented as of this encounter
--- OUTSIDE RECORDS SUMMARY | 2025-01-16 10:31 | XMS_ITS | Encounter Summary ---
Author Organization [facility] Address [address] [facility] [place] [address] Care Team Providers Care Farm Service Consultant Name Role Phone Radha Sanchez MD Primary Care Provider [phone] Encounter Details Date Type Department Care Team (Late st Contact Info) Description 08/06/2024 Orders Only [facility] [address] [place] [address] Lydia Keenan LPN [address] [employer] [address] [place] [phone] Social History Tobacco Use Types Packs/Day Years [...] Office Visit [facility] [address] [place] [phone] Georgi Carreon DPM [address] [place], [place] [phone] 07/29/2025 3:00 PM EDT Office Visit [facility] [address] [facility] [place] [address] Sanjeev Lopez DO [address] [facility] [place] [address] documented as of this encounter Procedures Procedure Name Priority Date/Time Associated Diagnosis Comments PAP SMEAR Routine 07/22/2024 12:00 AM EDT documented in this encounter Results * Pap Smear (07/22/2024 12:00 AM EDT) Swab Cervical swab / Unknown Jessica Nurse [facility] LAB CYTOLOGY ORDERABLES Final Result EXTERNAL LAB documented in this encounter Visit Diagnoses Not on filedocumented in this encounter Care Teams Farm Service Consultant Relationship Specialty Start Date End Date Radha Sanchez MD [address] [facility] [place] [phone] PCP - General Family Medicine 12/12/22 documented as of this encounter
--- OUTSIDE RECORDS SUMMARY | 2025-01-16 10:41 | XMS_ITS | CCD ---
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 (6 sources) topiramate Drug Allergy 4 Swelling, Other (See Comments) [facility] Work Phone: Medications Current Medications Medication [...] skin once a week. 0 02/27/2023 Active wlkyhpcsjyrz-jvn-raoq-FA-vit K 18 mg iron-400 mcg-25 mcg tablet (2 sources) multivitamin-min -iron-FA-vit K 18 mg iron-400 mcg-25 mcg tablet Take by mouth. Active nystatin 100 unt/mg topical powder (20 sources) Polyene Antifungal Star t: 10-02 End: 11-02 nystatin (Mycostatin) 733811 UNIT/GM powder Indications: Skin irritation Apply topically [...] 04/14/2023 Active Start: 04-14-2023 nystatin (Myco statin) 883435 UNIT/GM powder Indications: Skin irritation APPLY TO [...] days 20 tablet 0 08/19/2021 08/29/2021 Active Xqg-Zqk-FH-Fish Oil ([facility] GUMMY) 0.4-113.5 MG CHEW (2 [...] but otherwise deformity correction is holding well. [facility] Rad[facility] Study observation (narrative) [facility] [id number] 10-24-2024 [phone] Call from [employer]. Latonya Meyer NP and Judi Ortega NP they would like cardiology clearance on Karuna they would like to start the patient on a stimulant and need your approval to do so. Please advise. Normal [facility] Patient Messageon 10-24-2024 Patient Message [id number] Cameron Dumont 1980 F Date Provider Department Center 10/24/2024 RUTHIE DEVRIES [facility] Family History Problem Relation Age of Onset Heart murmur Mother No Known Problems Father Family Status - Relation Status Age at Mother Alive Father Alive Normal [facility] XR Foot - left 3 [facility] [...] Hallux is rectus. Sesamoids are well reduced. [facility] Rad[facility] Study observation (narrative) [facility] XR Foot - left 3 [facility] Result: AP, medial oblique, lateral views are nonweightbearing. Orthopedic implants intact without signs of lucency. First TMT appears well approximated without any joint space visible. Enthesophyte at the insertion of the Achilles tendon and plantar fascia. [facility] Rad[facility] Study observation (narrative) [facility] Office Visiton 08-05-2024 Follow-up visit [id number] Cameron Dumont 1980 F Date Provider Department Center 08/05/2024 RUTHIE DEVRIES [facility]DI [facility] Family History Problem Relation Age of Onset Heart murmur Mother No Known Problems Father Family Status - Relation Status Age at Mother Alive Father Alive Level of Service:00272 CT OFFICE/OUTPATIENT ESTABLISHED MOD MDM 30 MIN Normal [facility] IGP,APTIMA HPV,AGE GDLNon AGE GDLN ACOG TESTING Note . [facility] Comment on above: TESTS RESULT FLAG UN ITS REF RANGE LAB Clinician Provided Cytology Information Source.............Cervix;Endocervix No. of containers..01 ThinPrep Vial Age Algo ACOG Kathryn... 30-65 01 FLAG LEGEND: L-Low Normal,H-High Normal,LL-Alert Low,HH-Alert High <-Panic Low,>-Panic High,A-Abnormal,AA-Critical Abnormal Performed at: 01 =[address] [phone] Alma Rosa Welch MD, HPV APTIMA Negative Negative [facility] Comment on above: This nucleic acid am plification test detects fourteen high- risk HPV types (16,18,31,33,35,39,45,51,52,56,58,59,66,68) without differentiation. Performed at: =[address] [id number] Produce Department Manager: Alma Rosa Welch MD, Phone: [phone] Performed at: [address] [id number] Produce Department Manager: Alma Rosa Welch MD, Phone: [phone] IGP, APTIMA HPV, RFX 16/18,45 Note . [facility] Comment on above: TESTS RESULT FLAG UN ITS REF RANGE LAB DIAGNOSIS: 02 NEGATIVE FOR INTRAEPITHELIAL LESION OR MALIGNANCY. Specimen adequacy: 02 Satisfactory for evaluation. Endocervical and/or squamous metaplastic cells (endocervical component) are present. Performed by: 02 Bianca Murphy, [employer] ([employer]) . 02 Note: Note 02 The [...] <-Panic Low,>-Panic High,A-Abnormal,AA-Critical Abnormal Performed at: [address] [address] Alma Rosa Welch MD, BRUSH-SPATULA CERVIX ENDOCERVIX [facility] HCG ( test) Ql (U)o n 07-22-2024 Interpretation and review of laboratory results Normal [facility] Preg Test, Ur Negative Negative [facility] Human papilloma virus 16+18+ 31+33+35+39+45+51+52+56+58+59+66+68 DNA [Presence] in [place] 07-22-2024 HPV 16+18+31+33+35+39+45+51 +52+56+58+59+66+68 DNA Probe+sig amp Ql (Cvx) Human papilloma virus 16+18+31+33+35+39+45+51+ 52+56+58+59+66+68 DNA [Presence] in Cer Negative [facility] Comment on above: This nucleic acid am plification test detects fourteen high-risk HPV types (16,18,31,33,35,39,45,51,52,56,58,59,66,68)without differentiation.Performed at: = - [address] [id number] Director: Alma Rosa Welch MD, Phone: [phone] at: - [facility] [id number] Director: Alma Rosa Welch MD, Phone: [phone] No Panel Informationon 07-22 HPV High Risk Other Comment Note . [facility] Comment on above: TESTS RESULT FLAG UN ITS REF RANGE LAB -DIAGNOSIS: 02 NEGATIVE FOR INTRAEPITHELIAL LESION OR MALIGNANCY.Specimen adequacy: 02 Satisfactory for evaluation. Endocervical and/or squamous metaplastic cells (endocervical component) are present.Performed by: 02 Bianca Murphy, [employer] ([facility]). 02Note: Note 02 The Pap smear is [...] <-Panic Low,>-Panic High,A-Abnormal,AA-Critical Abnormal ------Performed at:[address] [place] [address] Alma Rosa Welch MD, Reference Lab Test Patient Age Note . [facility] Comment on above: TESTS RESULT FLAG UN ITS REF RANGE LAB - Clinician Provided Cytology Information Source.............Cervix;Endocervix No. of containers..01 ThinPrep VialAge Rosa Elena MARSHALL Kathryn... 3065 FLAG LEGEND: L-Low Normal,H-High Normal,LL-Alert Low,HH-Alert High <-Panic Low,>-Panic High,A-Abnormal,AA-Critical Abnormal ------Performed at:01 =G [address] [address] Alma Rosa Welch MD, Urinalysis macro (dipstick) panel (U)on 07-22-2024 Bilirubin, UA Negative Negative - 4(70) +++ mg/dL [facility] Blood, UA Negative Negative - 50 Abdoul/mcL [facility] Clarity, UA Clear [facility] Color, UA Yellow [facility] Glucose, UA Negative Negative - 1999(110) ++++ mg/dL [facility] Interpretation and review of laboratory results Normal [facility] Ketones, UA Negative Negative - 160(16) ++++ mg/dL [facility] Leukocytes, UA Negative Negative - 500+++ Melisa/mcL [facility] Nitrite, UA Negative Negative - Positive [facility] pH, UA 5.5 5 - 9 [facility] Protein, UA Negative Negative - 1999(20) ++++ mg/dL [facility] Spec Grav, UA 1.005 1 - 1.03 [facility] Urobilinogen, UA 0.2 0.2 - 12 mg/dL [facility] 1,25-dihydroxyvitamin D [Mas s/Vol]on 07-17-2024 1,25-Dihydroxyvitamin D, S 27 pg/mL Normal 18-78 [facility] Comment on above: Result Comment: NOTE ADDITIONAL INFORMATION This test was developed and its performance characteristics determined by [facility] in a manner consistent with CLIA requirements. This test has not been cleared or approved by the U.S. Food and Drug Administration. Test Performed by: [facility] [address] [place] [address] Produce Department Manager: Miguel Anderson Ph.D.; CLIA# [id number] Performed By: #### 6 [id number] #### [facility] ([id number]) [address] [place] [address], [place] [address] XR Foot - left 3 [facility] [...] the navicular consistent with a NC bar. [facility] Rad[facility] Study observation (narrative) [facility] Basophils Auto (Bld) [#/Vol] on 07-08-2024 Basophils (Bld) [#/Vol] Automated basophil count 0.0-0.1 [facility] Basophils/100 WBC Auto (Bld) on 07-08-2024 Basophils/100 WBC (Bld) Automated basophil % 0. 2-2.0 [facility] Coding Summaryon 07-08-2024 Coding Summary HTMLBase 64 EvfiunjxHMd7cYc+PGhlYWQ+ DZ0FQWGoW93ktVTomD6vH7MI TElOSywgQVBQTElOSyIgbmFt HS6sfMDmGRAr IC8+QP7cERWrRnlvkKWcz1Q7 tMM8Y13bsg3hIKukkJS6HSXg RnKhfognw3zcfYv0SOggYjnl OyBt GARsrT48EKV1dN43Qk82sJQu mTZyv9tliYt1LpKwDDJkYQK5 yKavRObra2IrOUMjQ05fxXUg c2U6 DXSbgIpwaUZxOvOmhPY0rB9i GXwlpiikz2jxstgvGgd3gp07 kYSwq1S5uHG4L5StmwR1BGBe bGQg JezzqQZNoW8gxswex0znrinu QrIqFIThUHg2GOn4EXFhpJru UpNvMZ65VIG3LTZcnsOxR7Wi LWFs fBdiIhW0f0H0Cs7OZ8NZTaod P9FHDGUGIBfngBQ+CQ68sn76 Y0NeYnqrBgf6NQDyBRQ7vUX6 aD0n QQCpGDpry7K0hYG4L7OyuuJq bw7fv9tbJOZeWGnpA59urIZo d2U4DQUpiVG8ZXBlyVbvRwOk aG93 Oyc+LSKgbWwnf5SuQyfho2kf c0ypdPi5GkkgGCGlywPtnGrh IZN3c8CcDz8aDOHmqJI5uNS1 aD0i ZmEtWvP7OAogA099KeGjnQKq QhtlB99dQ6ExaOJ+PHRyPjx0 PUSqwXflND3xR2PkYQRbvoub bGVm mKugWV6sCKDmbgueHPFzzM4z CFHfK8m4YwFlVeS1DHnpZ6Rn UNWhhsknJv33pD5fSoVyZjZ7 MGlu A1WzbwJ3VIAysASjBMsxSVU0 W14lf6Q1IHJeLYIuUPJ9aWQ8 cE6ixBevvqpbcQUuoMqglcMc dGlj QWhtQAknR841CTUnnLjhXnYs ZGluZyBEYXRlOiAgMDQvMDcv MjAyNTwvdGQ+HFOpDXR1oSnv PSAn eYMzSMjfTk7flLwbbQywBL6k GLOlpkqxRKAcqY6qGUPepWEa iGrsGL3mUMHbbahfo136CgZy MHB0 NUYtdPErE9KkwD4tGgQjIGVl WCUrX7EqgQWwYHnoE970MHng SmG5QPGzilZzZ4DnOPXyhCaf OiB0 j7N7Ew0Ka9HwfsflA9VwdMKn MpPfUovbZKt6B5TuTabbmST+ XZ99DKYcRN12PCp1XCR1cVat PSdi WMTnC3NqnY7oZeLmKILhGYKj Oyc+PHRhYmxlIHdpZHRoPScx ZSSlDsQijGjiIM1bSm8yTHCm LWNv oFawaRFvOfPfl9brAKSoWZtt TI8lrTotK7UmfLR7CNLic9q4 Cu85C29wZ1ZinAE+PGNvbCB3 aWR0 cR4dFuSwLlB6PXhzL011IvXa kBHgOfwfp4qio1wipKt3MdA5 QLFceiZmmLtoGAI4i5AgUo26 Y29s IHdpZHRoPSIxNSUiIHZhbGln nh6eeD9mUr1+VTLmrRM7jCZ6 tK1uXsVmGrP8QGwhJ168RmMm cCIv Mubfd2yxf2jciDo0RwGdQOEg bgTbhDuaYRY7b3XbHq54C5Zt mLmuj3TpFxl4eq10xJIca1R1 bGU9 M6ClJNLusvxliWWbgZntFW3u NGDndgomILYxmT7tUCYxI1c6 YyZaLfJ5VGycU1QctoS0HMUy bGQg TWXhnXUWpM8ucuvrz6zwkpok LiZiGCWaDSm1NBd8DCZjhTss WxYoHNA9WaI8AXT5tVZivI1s bGln zdbuoK5fVcz+YAX7mJMkvKGO FU2iKncmhVX+QRTuNCK1gMhl ZUneCHPmvK2xCGUlW5x7NdVt LjA1 JCezT1VfujU6ZANdbBVgULKj dLTOgP5jjfrsb0uyweumYtHg YLNzMTa6BKi7KPUqtHztRxZu ZWZ0 PwG5SAT6gXSzfS8ncDjvltpt iQ2mSfl+SztxgCdmQSB6OJw8 M1RlRsu1NVXblZeyPQ5ysPPc ZGlu Nx6giMkmuSscOS9wSDJzwaba w681ZeZwj1rcYSEgsKQzTOva YYZ3M66uc9N8NGRxYGNgLLO9 dGV4 eM5myJvkgtetgQWthGeqkrIs iAjcQQyaUQbsK110ISAzdInh KpIjCEx0L3TyFuw2FCSeaIit ZT0n yNIyOQcxRc6iuNaxsBlqGC2u WCTvltchy001EpGin5drVXIr xJEyBWacVLE4B48ai3Z3QAVf MDAw ZPM1hQU4qR5qfXubpfucsHRr zBxlfvPsuKnuRSnxPCupL618 PBGnhQnzIpLzfXc0L1YeNnk9 ZCBz qJvuEA6sqDHwVThjSk2nuUic aCouPN8sLEIqgfltv942RgMl p1hgQYGclHXsZQenPQZ9J44j b3I6 PLBjDHGhRAC5lJN2bC1pgZzw bjogbGVmdDsgdmVydGljYWwt YSfhZ729MGKvvIubTkDhsGkw bnQg NNuuKRh5M9ZoDanllKN+PC90 OKAwFW06hBQfgWIzl8nldZu3 QjEaOTLcEKQ5xBitTUige0Wn ZXIt Q09dwVMqv2Q1KTBcvCektNRu PiFloCT2tN7yWEcywbijg3di bhqyRlhnc7pbnw94rX86Z54i IHdp JHQrBZUrPZRbCUPepYyvbr8l hP3mRv7+YIDdlTW6zEU5tK9d RINfLeL5FWyeE734FfUzrQHd Pjxj j6bnm0ucsQd2BuQ4BQQxbmXj oUytCKO7x5TtIh98V93cRUub TWCgKMQzAZAkNXSltCjcaz5y dG9w Ii8+FQPlvIP8sSF6vT9eSkPz RfO6DOmyD817NxNmcYZfGlms D79pV4ObtLV+HXKnGxc3INWc dHls MS4raZDxUOunMp7xRVG4PxHo DdFcARugW0XqZSVztemabfnr pOF6VBYtVPMblY44Ut1eaNso MTBw dCMUsM5cgnydh2tnqwqhFmTn QJLiNOp2RBa4GGNorBcwCuRq YMK6EiW9MIT8lGZatD0jqBmo bjog jM1jY0XkHGLsgitxQr38lF8s GfMpReM8PZnfRya+R39FS0tH LCBBTUFOREEgREFXTjwvdGQ+ PHRk TEU5kHklENvyITMrqD5bMRVe T6j3YsBsIoQ7RYcpP2WwIMKs kbzbZa39sF3pUgFkTrD6IJzq O2Zv iuG0MMSrdLPyDBwfNDC8J98e t3H7LPDtWSAiUIW1oBP9pP5a bGlnbjogbGVmdDsgdmVydGlj YWwt WNjyB020DGHqlGpxTpG2RbOc YqM7THU1M5VeAkj4FZOcjYhx TU1vjUTaDNxhUs4mfBljfXnz MC4w NNXmlbqcNTUcyL8rHBSgaIEw wEmcBE4cCIRttovpb673BpEb ACN6KXPrkFFtU6GibP1fTtBp MDAw VFUkK2NciOXjCTnqB683SXku YcJ6VVPhzuYfX0WcSRIewIwh PiP6t8S2Wt93TMHKBAIyunsx dGQ+ OCWoLLG8kWiyGKneXBIoiK2b XYLcK4o9CsPkIpK4DCakV6Jy VTAdybzfTl48wK9wKjUoXyS0 MGlu K9XkqgZ4JPXjcTMmQOtxHJJ5 C94ri2P3JKWsKCGcGHB3cHT6 eK8itKxagwoksVPqiYvgucXe dGlj RWkjYGpmG516XJLajUlmYkSG TUFMRTwvdGQ+WDCqVXN9pTiv IDjyVPQaqN7mPYUvG3d1NgHi LjA1 PBlhQ2VyTODnscqtCn48vP8u CsDwTjW0VMwaQ4InfpI4KJNt iWYdVFouXTI8S52zj6C8MHJm MDAw PSJ7sZA6lP7nbHdpoixjwOSz tGbikeLdpKlpOLwwUVntR269 GIXzhMdtVlGnAXTsTF7dpHoe dGQ+ KR34fs74L0YvVrrxEwt1AEYu LEP1cAF7iN7oIZXmIFopg1I7 dZK5U5AhnaWzjv3bz5ecSVCm ZTog U62xtRKwm7Q3TJZsqDO5YVNi cWenVrLglD54Hwo+PGNvbGdy x7GrBkkhr3xih5jzrDm3OyPe JSIg xjIiuTsrBOK5c8OgHn76A38j IHdpZHRoPSIzMCUiIHZhbGln ts4qdA3vUh1+ZOPuhJY5gIF3 aD0i RfZdObM7XRmgR265AoLekMIb Momso2awm8qkvMh4XtRuFYBv jkNfpPbiEYI6y3YfTu93Y0Ps bGdy p4OeOaq8mt07aKBbj3G0iKU8 U9YjHKAkkacbkJRmmJctHV1t RXUbxnevJUNddT6oZNIgX9e0 OiAw KaS4PKvvJ7QsqhV5MNIloDVk DBWenPFZbB2xfvoud7ppqlee RcInPXRoOGl9UUr2FWTooNwj OiBs QYZ1BkJ4XJE4bMFdsG6pzLrr qfibpD5bVih+ABp9d5lfrKDm TM5tlZX3UD96KB80iZVux8L5 bGU9 Z8AtLSJhrprbosjooBU5CMVd LOOtzN77Vi6mwImoDh8vWNZs XFI3QVPdiDCpB7MprQ9mRcBf MDAw HWRlC9ZguFJxMIdqL023MQha PpU3UZEfwbUwS0YeNLFalWzs KyG4r0P1Ce8LKM04AL32IZ48 dGQg n1J0oZO3J2ZtVXKqqkyvszan rYN3HQYpHFLqhI89Gt0waFci Kd7qCJQvTZE0SMRhvKOfY2Dk bG9y XuKdRQDhJYBcY9GtaOZwKTsj S894LXdtJkS8HFRtglLmG3Xv SBIvbEkeZzI6z4L6Ow4OFs30 PC90 ZJ24uLMje6C3aXN2M4YhVHPn vylvngkkpTJ3UECoQRPiaB02 Oe1lqBohKh5tJDVgXWK6TMRk bWVz E0OuyG4oDpOqKFNiWSRhM4Wp dTWrQMuhB712IBexUtJ3VPYk qzJoO8ClBJKinKcyAyF3h7Z8 Jz5Q TUuyftv0B2GrWykxiYR+PC90 GQHhPO57lHIrlIRva2sunZg2 MyDgQZPpWND3iCvbHMrcb7Qo ZXIt Y29 (more content not included)... Normal [facility] Eosinophils/100 WBC Auto (Bl d)on 07-08-2024 Eosinophils/100 WBC (Bld) Automated eosinophil % 0.9-7.0 [facility] Erythrocyte distribution wid th Auto (RBC) [Ratio]on 07-08-2024 Erythrocyte distribution width (RBC) [Ratio] Erythrocyte distribution width [Ratio] by Automated count 11.0-15.0 [facility] Estimated glomerular filtrat ion rate (GFR) non- Americanon 07-08-2024 GFR/1.73 sq M.predicted among non-blacks MDRD (S/P/Bld) [Vol rate/Area] Estimated glomerular filtration rate (GFR) non- >=60 mL/min/1.7 3m 2 [facility] Globulin Calc (S) [Mass/Vol] on 07-08-2024 Globulin (S) [Mass/Vol] Serum globulin measurement by calculation (mass/volume) [facility] Hematocrit Auto (Bld) [Volum e fraction]on 07-08-2024 Hematocrit (Bld) [Volume fraction] Hematocrit [Volume Fraction] of Blood by Automated count 36.0-48.0 [facility] Hemoglobin [Mass/volume] in Bloodon 07-08-2024 Hemoglobin (Bld) [Mass/Vol] Hemoglobin [Mass/volume] in Blood 12.0-16.0 [facility] Laboratory - Chemistry and C hemistry - challengeon 07-08-2024 Albumin [Mass/Vol] 3.6 g/dL 3.4-5.0 [facility] ALP [Catalytic activity/Vol] 92 U/L 46-116 [facility] ALT [Catalytic activity/Vol] 14 U/L 14-59 [facility] AST [Catalytic activity/Vol] 16 U/L 15-37 [facility] Bilirubin [Mass/Vol] 0.4 mg/dL 0.2-1.0 [facility] Calcium [Mass/Vol] 8.8 mg/dL 8.5-10.1 [facility] Chloride [Moles/Vol] 105 mmol/L 98-107 [facility] CO2 [Moles/Vol] 28.6 mmol/L 21.0-32.0 [facility] Creatinine [Mass/Vol] 0.89 mg/dL 0.55-1.02 [facility] GFR/1.73 sq M.predicted MDRD (S/P/Bld) [Vol rate/Area] mL/min/{1.73_m2} >=60 mL/min/1.7 3m 2 [facility] Glucose [Mass/Vol] 77 mg/dL 74-106 [facility] Potassium [Moles/Vol] 4.1 mmol/L 3.5-5.1 [facility] Protein [Mass/Vol] 6.7 g/dL 6.4-8.2 [facility] Sodium [Moles/Vol] 138 mmol/L 136-145 [facility] Urea nitrogen [Mass/Vol] 12.0 mg/dL 7.0-18.0 [facility] Urea nitrogen/Creatinine [Mass ratio] 13.5 mg/mg [facility] Laboratory - Hematology and Cell countson 07-08-2024 Immature granulocytes/100 WBC (Bld) 0.0 % 0.0-0.5 [facility] Leukocytes [#/volume] correc mini for nucleated erythrocytes in Blood by Automated counon 07-08-2024 WBC corrected for nucl RBC Auto (Bld) [#/Vol] Leukocytes [#/volume] corrected for nucleated erythrocytes in Blood by Automated coun 4.0-11.0 [facility] Lymphocytes Auto (Bld) [#/Vo l]on 07-08-2024 Lymphocytes (Bld) [#/Vol] Lymphocytes [#/volume] in Blood by Automated count 1.2-3.8 [facility] Lymphocytes/100 WBC Auto (Bl d)on 07-08-2024 Lymphocytes/100 WBC (Bld) Lymphocytes/100 leukocytes in Blood by Automated count 20.5-60.0 [facility] MCH Auto (RBC) [Entitic mass ]on 07-08-2024 MCH (RBC) [Entitic mass] MCH [Entitic mass] by Automated count 26.7-34.0 [facility] MCHC Auto (RBC) [Mass/Vol]on 07-08-2024 MCHC (RBC) [Mass/Vol] MCHC [Mass/volume] by Automated count 29.9-35.2 [facility] MCV Auto (RBC) [Entitic vol] on 07-08-2024 MCV (RBC) [Entitic vol] MCV [Entitic vol ume] by Automated count 81.0-99.0 [facility] Monocytes Auto (Bld) [#/Vol] on 07-08-2024 Monocytes (Bld) [#/Vol] Automated blood monocyte count 0.3-0.8 [facility] Monocytes/100 WBC Auto (Bld) on 07-08-2024 Monocytes/100 WBC (Bld) Automated monocyte % 1. 7-12.0 [facility] Neutrophils Auto (Bld) [#/Vo l]on 07-08-2024 Neutrophils (Bld) [#/Vol] Neutrophils [#/volume] in Blood by Automated count 1.4-6.5 [facility] Neutrophils/100 WBC Auto (Bl d)on 07-08-2024 Neutrophils/100 WBC (Bld) Automated neutrophil % 43.0-75.0 [facility] No Panel Informationon 07-08 Miscellaneous Test COMMENT . [facility] Comment on above: Test Ordered: [id number] Metanephrines, Frac., Pl. FreeNormetanephrine, Pl 84.6 pg/mL Reference Range: 0.0-218.9This test was developed and its performance characteristicsdetermined by [facility]. It has not been cleared orapproved by the Food and Drug Administration.Metanephrine, Pl <25.0 pg/mL Reference Range: 0.0-88.0This test was developed and its performance characteristicsdetermined by [facility]. It has not been cleared orapproved by the Food and Drug Administration.Performed at: [address] [id number] Director: aKtelynn Macdonald MD, Phone: [phone] at: [address] [id number] Director: Theron Roblero PhD, Phone: [phone] Eosinophils # (Auto) 0.2 10 3/uL 0.0-0.7 [facility] Immature Granulocyte # (Auto) 0.00 10 3/uL 0.00-0.03 [facility] Platelet mean volume Auto (B ld) [Entitic vol]on 07-08-2024 Platelet mean volume (Bld) [Entitic vol] Platelet mean volume [Entitic volume] in Blood by Automated count Low 9.5-13.5 [facility] Platelets Auto (Bld) [#/Vol] on 07-08-2024 Platelets (Bld) [#/Vol] Platelets [#/vol ume] in Blood by Automated count 150-450 [facility] RBC Auto (Bld) [#/Vol]on RBC (Bld) [#/Vol] Erythrocytes [#/volu me] in Blood by Automated count 4.20-5.40 [facility] Serum or plasma albumin/glob ulin mass ratioon 07-08-2024 Albumin/Globulin [Mass ratio] Serum or plasma albumin/globulin mass ratio [facility] Serum or plasma anion gap de terminationon 07-08-2024 Anion gap [Moles/Vol] Serum or plasma an ion gap determination [facility] Office Visiton 07-03-2024 Follow-up visit [id number] Cameron Dumont 1980 F Date Provider Department Center 07/03/2024 RUTHIE DEVRIES [facility] Family History Problem Relation Age of Onset Heart murmur Mother No Known Problems Father Family Status - Relation Status Age at Mother Alive Father Alive Level of Service:19096 CT OFFICE/OP CONSLTJ NEW/EST PT MOD MDM 40 MINUTES Normal [facility] CT Head or Brain w/o Contras ton [...] MD 06/28/24 11:24 a Technologist: Vannesa REESE [facility] Extra Blueon 06-28-2024 Tube Collected Yes Invalid Interpretation Code [facility] Comment on above: Performed By: #### 1 [id number], [id number], [id number] ####[facility] (DEFAULT)[address] [place] [address] Cholesterol in LDL Calc [Mas s/Vol]on 04-15-2024 Cholesterol in LDL [Mass/Vol] Cholesterol in LDL [Mass/volume] in Serum or Plasma by calculation [facility] Comment on above: <100 mg/dl [id number] 0-129 mg/dl NEAR OR ABOVE [id number] mg/dl BORDERLINE CXTO407-593 mg/dl HIGH>190 mg/dl VERY HIGH Cholesterol in VLDL Calc [Ma ss/Vol]on 04-15-2024 Cholesterol in VLDL [Mass/Vol] Cholesterol in VLDL [Mass/volume] in Serum or Plasma by calculation [facility] - Chemistry and C hemistry - challengeon 04-15-2024 Cholesterol [Mass/Vol] 174 mg/dL <=200 [facility] Cholesterol in HDL [Mass/Vol] 65 mg/dL High 40-60 [facility] Comment on above: > or =60 mg/dl - LOW CARDIOVASCULAR RISK<40 mg/dl - HIGH CARDIOVASCULAR RISK Triglyceride [Mass/Vol] 83 mg/dL <=150 [facility] Serum or plasma total choles terol/high density lipoprotein (HDL) cholesterol mass eulalio 04-15-2024 Cholesterol.total/Amber sterol in HDL [Mass ratio] Serum or plasma total cholesterol/high density lipoprotein (HDL) cholesterol mass rat [facility] Comment on above: 3.3 - 4.4 LOW RISK4. 4 - 7.1 AVERAGE RISK7.1 - 11.0 MODERATE RISK>11.0 HIGH RISK Free testosterone measuremen t by LC-MS/MSon 04-01-2024 Testosterone Free [Mass/Vol] Free testosterone measurement by LC-MS/MS 0.0-4.2 [facility] Comment on above: Performed at: [facility] [address] [id number] Director: Theron Roblero PhD, Phone: [phone] at: [facility] [id number] Director: Katelynn Macdonald MD, Phone: [phone] Glucose mean value [Mass/vol ume] in Blood Estimated from glycated hemoglobinon 04-01-2024 Average glucose Estimated from glycated hemoglobin (Bld) [Mass/Vol] Glucose mean value [Mass/volume] in Blood Estimated from glycated hemoglobin [facility] - Chemistry and C hemistry - challengeon 04-01-2024 Cobalamin (Vitamin B12) [Mass/Vol] 336 pg/mL 232-1245 [facility] Comment on above: Performed at: [facility] [id number] [place], [place] [id number] Director: Theron Robelro PhD, Phone: [phone] Ferritin [Mass/Vol] 11.0 ng/mL 8.0-252.0 [facility] Free T4 [Mass/Vol] 1.03 ng/dL 0.76-1.46 [facility] Glucose [Mass/Vol] 80 mg/dL 74-106 [facility] T4 [Mass/Vol] 9.30 ug/dL 4.80-13.90 [facility] TSH Qn 1.271 m[IU]/L 0.358-3.74 0 [facility] - Hematology and Cell countson 04-01-2024 HbA1c (Bld) [Mass fraction] 5.0 % 4.5-6.2 [facility] Comment on above: ADA RECOMMENDED LIMI T 4.0 - 6.0ADA THERAPEUTIC TARGET < 7.0ACTION SUGGESTED> 7.0 MLR HEMOGLOBIN A1Con 024 Glucose [Mass/Vol] 97 mg/dL [facility] HbA1c (Bld) [Mass fraction] 5 % 4.5 - 6.2 % [facility] Comment on above: ADA RECOMMENDED LIMI T 4.0 - 6.0 ADA THERAPEUTIC TARGET < 7.0 ACTION SUGGESTED > 7.0 [facility] No Panel Informationon 04-01 25-Hydroxy Vitamin D Total 22.2 ng/mL [facility] Comment on above: <20 ng/mL Vit D defi cient20-<30 ng/mL Vit D -494 ng/mL Vit D sufficient>100 ng/mL Potential Toxicity C-Peptide 2.3 ng/mL 1.1-4.4 [facility] Comment on above: C-Peptide reference interval is for fasting patients. Dehydroepiandrosterone Sulfate 122.0 ug/dL 57.3-279.2 [facility] Free Cortisol, Dialysis, LCMS 0.385 ug/dL . [facility] Comment on above: These tests were dev eloped and their performancecharacteristics determined by [facility]. They have not beencleared or approved by the Food and Drug Administration.Reference Range:8 AM 0.10 - 1.204 PM 0.042 - 0.872Performed at: ES - [facility] [id number] [place], [place] [id number] Director: Kal Archibald MD, Phone: [phone] Free Triiodothyronine 2.38 pg/mL 2.18-3.98 [facility] Reverse Triiodothyronine (T3) 23.1 ng/dL 9.2-24.1 [facility] Comment on above: This test was develo ped and its performance characteristicsdetermined by [facility]. It has not been cleared orapproved by the Food and Drug Administration.Performed at: BN - [facility] [address] [id number] Director: Katelynn Macdonald MD, Phone: [phone] Sex Hormone Binding Globulin 119.0 nmol/L 24.6-122.0 [facility] Comment on above: Performed at: [facility] - [facility] [address] [address] [id number] Director: Theron Roblero PhD, Phone: [phone] Testosterone Level 17 ng/dL 4-50 [facility] Plasma serotonin measurement (mass/volume)on 04-01-2024 Serotonin (P) [Mass/Vol] Plasma serotonin measurement (mass/volume) 31-207 [facility] Comment on above: This test was develo ped and its performance characteristicsdetermined by [facility]. It has not been cleared orapproved by the Food and Drug Administration.Performed at: [address] [id number] Director: Katelynn Macdonald MD, Phone: [phone] Serum estrone measurementon 04-01-2024 E1 [Mass/Vol] Serum estrone measurement . [facility] Comment on above: Range Adult (Premeno pausal) 27 - 231 Menstrual Cycle (1-10 days) 19 - 149 Menstrual Cycle (11-20 days) 32 - 176 Menstrual Cycle (21-30 days) 37 - 200 Adult (Postmenopausal) 0 - 125Performed at: [address] [id number] Director: Katelynn Macdonald MD, Phone: [phone] Serum or plasma estradiol (E 2) measurement (mass/volume)on 04-01-2024 E2 [Mass/Vol] Serum or plasma estradiol (E2) measurement (mass/volume) . [facility] Comment on above: Adult Female Range F ollicular phase 12.5 - 166.0 Ovulation phase 85.8 - 498.0 Luteal phase 43.8 - 211.0 Postmenopausal <6.0 - 54.7 1st trimester 215.0 - >4300.0Roche ECLIA methodology Serum or plasma insulin mariam urement (units/volume)on 04-01-2024 Insulin Qn Serum or plasma insu stephanie measurement (units/volume) 2.6-24.9 [facility] Comment on above: Performed at: [facility] [address] [id number] Director: Theron Roblero PhD, Phone: [phone] Serum or plasma progesterone measurement (mass/volume)on 04-01-2024 Progesterone [Mass/Vol] Serum or plasma progesterone measurement (mass/volume) . [facility] Comment on above: Follicular phase 0.1 - 0.9 Luteal phase 1.8 - 23.9 Ovulation phase 0.1 - 12.0 First trimester 11.0 - 44.3 Second trimester 25.4 - 83.3 Third trimester 58.7 - 214.0 Postmenopausal 0.0 - 0.1Performed at: [facility] [id number] Director: Theron Roblero PhD, Phone: [phone] TPO Ab Qnon 04-01-2024 Thyroid Peroxidase Antibodies <9 [IU]/mL 0-34 [facility] Thyroglobulin Ab Qnon 2023 Anti-Thyroglobulin Antibody 1.0 [IU]/mL Abnormal 0.0-0.9 [facility] Comment on above: Thyroglobulin Antibo dy measured by [employer] CircleMethodologyIt should be noted that the presence of thyroglobulinantibodies may not be pathogenic nor diagnostic, especiallyat very low levels. The assay community life director has found thatfour percent of individuals without evidence of thyroiddisease or autoimmunity will have positive TgAb levels upto 4 IU/mL.Performed at: [facility] [address] [id number] Director: Theron Roblero PhD, Phone: [phone] Thyroglobulin [Mass/volume] in Serum or Plasmaon 04-01-2024 Thyroglobulin [Mass/Vol] Thyroglobulin [Mass/volume] in Serum or Plasma . [facility] Comment on above: This test was develo ped and its performance characteristicsdetermined by [facility]. It has not been cleared or approvedby [...] assay quantitation limit is 2.0 ng/mL.Performed at: [facility] [address] [place], [place] [id number] Director: Kal Archibald MD, Phone: [phone] BASIC METABOLIC PANLon 01-25 Anion gap [Moles/Vol] 5 mmol/L Normal 5-15 [facility] Comment on above: Performed By: #### C VIANEY, BMP #### [facility] ([id number]) [address] [place] [address] Calcium [Mass/Vol] 8.1 mg/dL Low 8.5-10.5 [facility] Comment on above: Performed By: #### C VIANEY, BMP #### [facility] ([id number]) [address] [place] [address] Chloride [Moles/Vol] 107 mmol/L Normal 98-109 [facility] Comment on above: Performed By: #### C VIANEY, BMP #### [facility] ([id number]) [address] [place] [address] CO2 [Moles/Vol] 26 mmol/L Normal 22-32 [facility] Comment on above: Performed By: #### C VIANEY, BMP #### [facility] ([id number]) [address] [place] [address] Creatinine [Mass/Vol] 0.89 mg/dL Normal 0.40-1.00 [facility] Comment on above: Result Comment: METH OD TRACEABLE TO IDMS STANDARD Performed By: #### C VIANEY, BMP #### [facility] ([id number]) [address] [place] [address] GFR/1.73 sq M.predicted among non-blacks MDRD (S/P/Bld) [Vol rate/Area] 83 mL/min/{1.73_m2} Normal >59 [facility] Comment on above: Result Comment: Reported eGFR is based on the CKD-EPI 2020 equation that does not use a race coefficient. Performed By: #### C VIANEY, BMP #### [facility] ([id number]) [address] [place] [address] Glucose [Mass/Vol] 114 mg/dL High 65-99 [facility] Comment on above: Performed By: #### C VIANEY, BMP #### [facility] ([id number]) [address] [place] [address] Potassium [Moles/Vol] 4.1 mmol/L Normal 3.5-5.0 [facility] Comment on above: Performed By: #### C BC, BMP #### [facility] ([id number]) [address] [place] [address] Sodium [Moles/Vol] 138 mmol/L Normal 134-146 [facility] Comment on above: Performed By: #### C BC, BMP #### [facility] ([id number]) [facility] [place] [address] Urea nitrogen [Mass/Vol] 15 mg/dL Normal 5-23 [facility] Comment on above: Performed By: #### C BC, BMP #### [facility] ([id number]) [address] [place] [address] COMPLETE BLOOD COUNTon 01-25 Erythrocyte distribution width (RBC) [Ratio] 14.5 % Normal 11.5-15.0 [facility] Comment on above: Performed By: #### C BC, BMP #### [facility] ([id number]) [address] [place] [address] Hematocrit (Bld) [Volume fraction] 30.0 % Low 35-47 [facility] Comment on above: Performed By: #### C BC, BMP #### [facility] ([id number]) [address] [place] [address] Hemoglobin (Bld) [Mass/Vol] 9.9 g/dL Low 11.7-15.5 [facility] Comment on above: Performed By: #### C BC, BMP #### [facility] ([id number]) [address] [place] [address] MCH (RBC) [Entitic mass] 27.8 pg Normal 27-34 [facility] Comment on above: Performed By: #### C BC, BMP #### [facility] ([id number]) [address] [place] [address] MCHC (RBC) [Mass/Vol] 33.2 g/dL Normal 32-36 [facility] Comment on above: Performed By: #### C VIANEY, BMP #### [facility] ([id number]) [address] [place] [address] MCV (RBC) [Entitic vol] 84 fL Normal 80-100 [facility] Comment on above: Performed By: #### C IVANEY, BMP #### [facility] ([id number]) [address] [place] [address] Platelet mean volume (Bld) [Entitic vol] 7.7 fL Normal 7-12 [facility] Comment on above: Performed By: #### C VIANEY, BMP #### [facility] ([id number]) [address] [place] [address] Platelets (Bld) [#/Vol] 267 10*3/uL Normal 150-450 [facility] Comment on above: Performed By: #### C VIANEY, BMP #### [facility] ([id number]) [address] [place] [address] RBC COUNT 3.58 X10E12/L Low 3.80-5.20 [facility] Comment on above: Performed By: #### C VIANEY, BMP #### [facility] ([id number]) [address] [place] [address] WBC (Bld) [#/Vol] 15.6 10*3/uL High 4.0-11.0 [facility] Comment on above: Performed By: #### C VIANEY, BMP #### [facility] ([id number]) [address] [place] [address] Coding Summary 01-26-2024 Coding Summary HTMLBase 64 YlqeqhrdIOm0tUc+PGhlYWQ+ JB9MHNYbR85jxNUacC7hQ3RQ TElOSywgQVBQTElOSyIgbmFt UZ3aiGIyYKIf IC8+AH4vEVHxOzckcMCfr3J7 kGF5Q77jih4fJJgvbJF6ZLNl KzNqxruzy9jrxBa2UMktJmtn OyBt ZYMvmV44QAA3pH31Zo95yFJg hGVsb7hekEb7WwZkMSWiTDE9 nQonYFerf3ZpUKTrQ55xiMRf c2U6 YOHvaBzknBPySrOndEW0zI7l ERwucaily2fvpwpyTzc6mw69 mKHgj3W8aVY4V7IptpO6PQSp bGQg ElginYXZoA8ymuudp3vpahoi YsNbVWPiLWy7DBj9QFVcyVtk VhHfLD80LLW7ZZNcuuHdZ6Li LWFs vKilSjM6p5K8Ul8LH9VZQrqx X2HNKYXHNGmuwJJ+DS11nr32 E7ErSjjwZxa6BZQcXVP8pLO2 aD0n HKMdBYfrt5F4cPV9U9GmpdTn iz6dv5syBRYdHSevD55koRSr t4E2SGVmpFS3CYNguKlxPaEk aG93 Oyc+ZOOznRysj7SjEovhu4ig m3sypNl9OmhfJHDrzgOesLzq USI0e5JlMa7mMSBkiYR2eLK7 aD0i RtQgUpU8BJxpW694OiAayZAp VuyxX11dV1WhoII+PHRyPjx0 HGUflHsbBG0iD5XqJCVjbesz bGVm jAwnEH0cZTMozszzBEEepV2k NWSwP2a1OuToLxV9OJpwQ1Ec SDTjgouqQj65vY9kMqKgIzK2 MGlu J3DcpdJ4GBRcmBBvDWpkWQF4 P63qv5F0UTZlQHHdZSC4qEL0 iM9ieRrcdgbxoUBzmIigncXy dGlj GZhlHZtfS936XDNbkYhoMqUb ZGluZyBEYXRlOiAgMTAvMjUv MjAyNDwvdGQ+EFQtGIT6nVob PSAn vTEwXVigEt7abKojeZkkIP6x CSOubiwyTIYtgE8zBQWtyWUf qIsbIZ4zKVGypqpdj624EdXg MHB0 FIWuxEGpK1IkoL3gIaUnDSCi ENXtG5QcdGGgGCulZ514DWjl FaY8ABXlctPqH4DaSJAeeJpr OiB0 d5S9Yk6Uv8LaringK9NoqFXp BzRaPayqSEa4S2VlJceayXZ+ LP35RRCyVW19ZNw7AAS6oOwu PSdi XGMhQ8IfvX3xYqPjNITwBQHn Oyc+PHRhYmxlIHdpZHRoPScx NFKnBeTmxEroBN6gYg9tSHNd LWNv bBreeRNuClCbj0ujAITfVNge RY3srYxxG2LzcKT8GIFri6y0 Ca64Y30dY4EpgNL+PGNvbCB3 aWR0 eR9rHzJrOdQ1NKupE780XnSt xFHmHasbs7xhg9ngvJp7EwC9 DDYpavPedEpbLBJ5j6IfEr28 Y29s IHdpZHRoPSIxNSUiIHZhbGln cf7knN9rEr4+XFBvhVU2dXF2 kP7rVuLvUjL5TTlsR674CnDy cCIv Ygwwz4gjz5pxjFk4EuArQLOi seFikCsuLRO7j2MyNk11S0Pe tSwbw6NjOpy2oe57rLOww0R7 bGU9 I8EdUCJsuowabOIphTwfQG8l DNEnddugFWMoqD0pEYFfT5n0 LdWuNrN4GUpcQ3YpttK1MOGg bGQg QNPgvEPGuP0jnoqoq1oogbat WlTwNAQsYZw3MUo3BGAfuVhd OcCjOQT4JgN9UDT3qLCfyB6j bGln kzkvlJ2mElc+HAJ9dUFobLRL LO2aWuimuRP+EGRgLZW0wCyy KSbfFVGrlN4xOKJqE0d1ZzMf LjA1 FCpgH1FbawO0TUDwtMErOROq oOPTiA8kipvqe9rmrilbVkIj QBEkIFa2LHn8HJSjjOefSvJj ZWZ0 YtI8WRY3bEGppU3yuPjqzstk jW7jCbc+OpqilJexRVX2WIt4 F5HrYnl2AEFhwWjeGZ4xbFCl ZGlu Nx1shGsxpPcnJG0yNRFkffci e355ZeOrt0rdIAEewAXfCHci ZHP3O76qr0E8AZBaUNKpSMD3 dGV4 lO8cwTbiboijiPFbiUhcxgWo aDzxTYbfYYaaA729XSIcrOvl VrNaJRj8Z3IpHun3UVItlMmm ZT0n xJLtQMxhGx0ayJiqgMcmLP8c WGUpmnyzk763QkSlu0uuSFYq zJDnRAyzXCO1U59hr7K9KUVp MDAw VQH6iBB3xE8htCaqlplgvESn iAodjdZdtDzyYAbpRPfnP724 WOUarPkaYyNlmKz5U7CjAol4 ZCBz vDvyMB0xzYGmAKasYb6nzLuq jYofWI0jESYpjitnj006HqWu e0ufFGNobZWoJYazWQC0L72h b3I6 ZAFlCTEoBDO6xAP4lW0ycRkm bjogbGVmdDsgdmVydGljYWwt JXjrB927GKMxjEldEyGgkHau bnQg HKedYPh4V5WhFdmgxRB+PC90 VVJlLN21pQHdoIHyq7gmrWq7 XqHwZHQnXWR1nZccQHolu5Hv ZXIt D48poYVeb3W7RSXesIhdmHYd PkRuzTI8uA3mRTongxjyn5ze xkzoBeuah0nbat54rT24N81f IHdp HGRtMEZtUOOmTHUuwPvjbl7z hG5aWa5+REEpfDD2pXO3dX6l JZJbPnH3OEvnD856QyXbvKTb Pjxj k5uon6mveYv5LpY7RSTlsxCi mLfdXBU4s5PhNe42S26pPNeb AAGvAARnEXErVNHoiDmdhb9p dG9w Ii8+EWUjtUO3wBM8bG7qEgIn NwW3YLvtP232WhXgnXUqTqjv F11aT9YikML+EWFkNmw8YQSh dHls JE4rrAVbKKqcUz0hUSG9LjYt DpOjWIdwC0KoSVIacrddapvy cON4EJYwIQQfwQ36Ph9qsKst MTBw eTQCtO6ocnoow9qmhxywZeJu FODvVSa3LJd8ZECovUtzGoLc JDA6GnN2EIL5tGShwA7emNiu bjog hN2uV8JhJSEjzmqmMs76oE6c XuQyOmF0LEttLlk+N24JK1fZ LCBBTUFOREEgREFXTjwvdGQ+ PHRk WCS5fWpyMTtjFZTdxV1aYPQz N8w7IjUuBdO5DVvpJ2WzPMQw jvwxBl66kK0jZiGyWeA6NXmy O2Zv xvS1MXAonQArAYbbHNC5L89d x4G5ACThTSApPNU2xOF3aL4c bGlnbjogbGVmdDsgdmVydGlj YWwt KJvhV088CVEpxIkeAxZ2AmPy EfK7POM5X4FeAgq1ZAZgiFoj QM2hjPNzCPzpEj3bhLqcwSrf MC4w PVBmuexlXNCzkT8wZSVndDBa lEkvIG5fSWFyojymp673CpFx OZL0PAKwaWFdL3NgmT1kMgOw MDAw XIHiR1NtpQJpGSjmP593BOqs MaP3LVIipwFmE4QzFJNwoPxk NvR8q9Y4Qv73SIOYZTKdxxom dGQ+ QSAvZDI5lRpqMKaaQJJttJ3w ZAPgE7p6GkZjCcF8ZEtyB9Tl FOXekmmuBg60xT7tNpMfVlW7 MGlu E3TxvwY7SIFwvUSnBKmvNPX5 G40vr9V7HJZpPFNnURX6oGF8 oN5hzGkskaosuGCetQbxsvYw dGlj USsvCGubA100GFYevAqjGaCC TUFMRTwvdGQ+AJFgXZZ3gVht FToeHDUeyZ6eLEZqJ7s4CpPi LjA1 QRfdH4VeELOkldteNo52jG0c KzRvZbT3EVbpK5UrvtL8TYUo xPAmLTpvHZJ4D43bw9F8QAPm MDAw NCJ1mPF8oW7mxExahwftwNDn jLukpcFedUanUYvqLHjuS276 JSXldHfuFoUqLXZjCP7mgDsq dGQ+ XT29mh28B5UtVzfxNzv8ASBg HKI9sSC2jD4mCIKeIQtzw3H2 yDS9V5TokkCaxr6yo1fdGPOh ZTog A76vtNLiw9X1ICIedDE1AMQj uQpsOzYmqU19Fnd+PGNvbGdy i3BaLmpyy8fil8afbAp8IhSi JSIg ztWyqAfuDUQ1u2YbBo82Y29e IHdpZHRoPSIzMCUiIHZhbGln bi5ffQ6mAp4+JBDwrMC5uPF6 aD0i AtLxIjH3OLyzQ770SmHizLRl Kwsdp0nrt8pmnQy4ZyCiZVAb itHksSvgCRJ9t4DmCz67Y7Cn bGdy i9UjLxq7nx40zAVin9Q5mBI5 P3HoFNKftaplaDFpuGcySE6p QGGxczetYAClmO6nOQRhU3h8 OiAw ZkJ5ZTdmJ8VezeA1QXFrnZNv TGShaWAYfP5vgxref5cygkwv GlDmSZLmQPu7PDs8FPCvvCyf OiBs LYY6UjA2TBA4uHKfgV2tdFwm uvelrC0zKan+OPg1u4bwdTHh EI9hmFO8AY52RG10vKPfx4W9 bGU9 E2VnJIVpsfsyqvabbEU8EVPt HXSylR06Ts1taKhpJo6oPLKt DHP7PAJoyOJlI9IyeF2tTvEm MDAw AUGcV3QqtAXuNRceG741IFdn EmS7QQRozmUcA2NfRLDlgEku RgF2v3U5Xp7LVP50LT76FE59 dGQg v9L1oJO2F1IwRDFjachennpf yGV3FMTaYSHxkF39Kf7trIqg Xv2gAJRuTZH9ZQAtaKIoY5Tk bG9y JdKoIVCjLSYvS6PmdTGwKBdp M024JNofIjL4WCYdcoFwQ6De DYIncAbvKjF8v9O2Ka4NFk98 PC90 FW16iSLky3S6wYQ2D3OkXRAa jgqdjzersWV3FHSuUBMayS76 Xl9juQloKw5xYGPpXSS7DFZx bWVz O8JotS3xGxJyAHVxIFKeQ7Dp gIMaMHioB200GRpmTcQ2UNZj moRiH8YlUAXjzScsLxN6a4A2 Jz5Q YAozefk7K1TxUagyrTP+PC90 CQKqKZ04vCSbdKJkt9lpeNu8 SsAvPAOfNMA5aEosTDqzo7Ng ZXIt Y29 (more content not included)... [facility] Coding Summary HTMLBase 64 MhisifmzZHz4sAo+PGhlYWQ+ WK2RHYOaJ39qfVLmrF9pX7KZ TElOSywgQVBQTElOSyIgbmFt AA5hoVCfIIYt IC8+UO4fGHYxHwfvmENbw3N0 lPI5X69guw8gRYdwkPM4AQEr EiImfrszn4aufUc4RCynMszq OyBt YZBeyY47LZC2tS31Mo29nMKn iURpg9jzfOn0XlZkIKTzVKI0 gScvKJwlx8SvFRBcN62hmMDa c2U6 LGVmdZzjyVZlNhJetLK9zQ0y TYysoznls7hnfpdgSvk6gg80 rFMre0G3zQX8Z0KetyC5BEDi bGQg SvsacOQWoV5motszz2gmugnt WrGfGSLyPUi9OVt6XOEspJgp HyQjQG86OQN3QNNihmIxS4Yt LWFs cGwqAoB2q8D6Un3DA9YOPfok L4QOJBLAJVbndYG+BP21bx60 N2JjTmvlXae3LDMuXQP3tLZ7 aD0n IAQaEUqqo3A9nFJ9C4NkxkEa cw0iv8iyCXAkHAxxN05vsOMk q7X8SYNlcAQ1BDCcdKnyKfTv aG93 Oyc+ARCeiAjhs6KpKlbhd6lt r7muzQt0GhiwQOGhrxBlqHjz OUX0h0SeWg5kTDBhkVK7yNC3 aD0i KuGjCxQ4ZLbdN540DtCpuKVw JlsnX65eT2BfxLT+PHRyPjx0 PEXquIogOY9jF5UyVZFyqqpj bGVm fEmfKS7sJGLruqvcGZTqtU4e ZKIjX7x8LkUzZoG5HAwnJ9Xm JRSpcblbRl72kD9gBlIhOcH6 MGlu F3JcjxI8UWOpmERpKBomECY0 D24tb4V2TOVeBZNdYPG4iQX3 oM6mpSnmgrsmnUTfzFawcbQh dGlj XUbhKUfgM909LJSkmExhHdJq ZGluZyBEYXRlOiAgMTAvMjUv MjAyNDwvdGQ+XZTdZPM0eYdf PSAn aXPrYOdfXb1syDlxkZpnHA5o NOCsijvuEAPtzD0hCATctMPp wQhhCE4qKBSwrtnad019QtXc MHB0 JDCxvVXbY4RksR7hQaZbFQAk DBMyG4SlvWZdSXsfL908VDeu XrN1IQBmydArV3AeYUXxmYvw OiB0 u4L7Ln2Iy7HsgrunP6KlgVZu YdQlDaydCXh2F7VoEqrdlFE+ RD54VFCsPJ67MOk1IHV3uTpe PSdi IOTyP2KohL5rIzKaKKMbJZKy Oyc+PHRhYmxlIHdpZHRoPScx DFJxHiSenMzaFG3vIs6bGSPr LWNv oRljwSKjEmGha0eaNEAyLIty HT5xkZkuQ8KpqQF4ZRMdr6j9 Oi52I60pY2LdtTR+PGNvbCB3 aWR0 pG7jWqVlNmB0QYjyZ525ZuNt uTNrKiwlb0gvn2kjjEw5YeA0 KSJzfkMjxWcjULL3x5GcVd15 Y29s IHdpZHRoPSIxNSUiIHZhbGln be4pzB6eEr1+JXXwqDV7aNI6 tY6oNnBmLvM6ZYlxG597IkRl cCIv Pjoyb5rtq1rjgIp6BiLaEZAj obZpoGrsRQF9v1YjOr32N7Xg qIeky6LuZwr9cz64pQCzm0N1 bGU9 B9CqJXVqvpxmuVOdrAusMJ3b WPZmveerXMBccT2pSSHyK1p7 AfNpQuH7VGhaO8IlhaI2GVKa bGQg MOOsgKHLaF5drsrsm4rclsul UhEjWMCgCDw9DAv5YMNzhDlw PbAvYPP0UdF9VRP3rOKpfC0q bGln ljfvhM2pEdx+KWJ5rZZsaCNB UJ9nHnzjlCR+SKYwYBC3iVgc GCvaQOMwzD3pDQDwH2b0KeNa LjA1 JCasP2BasgJ6SBGzqUPoHBQv sOVXrI3elnrht8bgrwqfPhSb WPBoPNi4DLi4JFPctEttIlAh ZWZ0 TeS5SWA6hMBonH7rxNykbjdz yD2wIxw+YjncsKguZJZ0VWf2 B9QtPgb0FECwvUqrJV6kvLDe ZGlu Vw2wuGkteOtgNX8eXWEcobzj s975SbAcj5myRDLggPBiDUsg IDA5U85xl3H3DIMrKQOcWQR0 dGV4 fJ5vvXggmwezmCRtrPuwydUs kPhkKLfqIYlfA351UXLlaAzo HaWeILn9W1LoVkv9DRJgiJga ZT0n jHVePKqiHa0wpXkoaYcuHW3o NGJpicxke783ZiPdu0shLATr eYMeAYnuITN7R20jp1Y9PCKy MDAw PPT4eXL4rX3mlYbofrhvbCWj aPkdisBvpTltQBxbNHbqU466 VKGwzHyuZtDmrAa1G4PlMfg6 ZCBz aKhkTE4maNTzDGisGg8wsAyn fTpcRM6ePRTmmvlvf107ExLg c9rsQSXrjUBpLYznUTO8A21v b3I6 ZQYiRJSxMSV7dCE4jA4geRwe bjogbGVmdDsgdmVydGljYWwt WXkcX750VTMmtSkzDsYqiOox bnQg XLfxIMm6L1ZnGkpowVA+PC90 XRLhZQ80oTFkdKNsw7aqgNm6 RgKnYRFjXAJ1pTxkUDegw8Un ZXIt S42eeVUwr8R8GOSehGmhcLRi PmPceAX7sC4mWWvtkdlls6fn dkjzXxwnl0bhlj09qG95E92c IHdp OOMpAIZjRVMcSMXueUdtpf6e cX5qWh6+IEBnhEQ9kJR9kS7r UIPeOvD0QPpzB782CjPryEWx Pjxj r9lms2xytEw4MfX8ZGVogzVq bSxbTUA6b5ZrWe96E72eOVps YZXrCCSkQDRkLQYygHrecq0o dG9w Ii8+PEGymUH2gQV3eE5oPkHe UrC9QEkyK352QbBmmABvTjqh Q76gR9QrjIU+NTAdBmd5DOGn dHls RI8mgDFhLCnrIa0tRBJ5TgQf OkMqBAulM7PuPFTospehmpsq aSS7PZUePSVzeE37Es5lfWwe MTBw pIIRuT9jzxtyy9koxqtrPxVj YYXrIVw0ZAb4CIJavRisQhLi SHZ2HqE1AAF3vPMqsR8myPpw bjog xS9kH6SrPEArnxvwNe48hU6w KwAvUuR5DLvrAee+H11YR9fC LCBBTUFOREEgREFXTjwvdGQ+ PHRk VFN1hUflEDejMUWlbG3pJEEz A6d2KaMaTlT9BYunC6CxCUZg ibkeCd37hY8tJdKiOnQ4PXlf O2Zv twC6PVCyyCEgNNidMFL3Z00z q4O7VZWrJOOnXEI8cUU1hV2s bGlnbjogbGVmdDsgdmVydGlj YWwt VJvmH700MIMbyQltFxD4UeDu UxF7CJX1O2JeTsm8HWAduYue PA3rcSSyLBwcDx9jxGedpOdv MC4w KLJorsbiARZwgS7gPPJndGKy rCmdDQ0eEQKfhqxrc894CqFm FMP7XTNggSMkD1GrfK3pHlPs MDAw PWFhR4TidWPySWnkW794OOsu ZdV2MTBdkvGiM1JmRAEndHmx HtB7h0V6Bk04VFOUMGUhzfmd dGQ+ JRNzTOL8eSxmGFcrUUGruO0u QUOgC0v5BdZdJiC5CUvlI6Ub LPOevjoaRz34eW2xIoHqTaN4 MGlu U9PpcfD1DLEzhAZvFOzsEJU4 S84oo5X1GQHrMVUaLNA6pLY6 hK1kqDdsjwmiiOGxmYkzdxRr dGlj KSlcAAviL931FLSaxDhnFjHZ TUFMRTwvdGQ+DYHoRDM1bPzw KPhyGLUjtR3dCQVvC7c8NiRh LjA1 NXvvA8HxJFBgkvozTe70zW8d EdNqKnP3KJssO3HpndT8WUEi uINaVXhzVEU4L96bj4Y5XSJu MDAw VZZ4dRF0wT0xuDmefafijZMb fYalnhDkcWlcVTzbFDyaQ287 PVYhbZkiXlRjCZSnLP7hyNog dGQ+ JI24cw90O3FsUlbnThw9VQIn ZRL5mCF4tB0qHUElKAgrz4K6 pMT0B3FlukPdwx9bi0piPCCy ZTog X10czXVol6A0JBBveGE0GZTf lXeuDoUxsB01Iot+PGNvbGdy e4ZcEbytb4yit5pwxLn9XiOz JSIg teKqgOpdCWK6i1BbJl92X94h IHdpZHRoPSIzMCUiIHZhbGln sl5aeM2mEt4+IQApsFJ5zFX6 aD0i WaPrAoL8VOzpJ435EpAozTMq Cwvyu6ifw2qroEq7ZaGmSKXj nqUuxHhfYVX7g1HiZt80P9Tv bGdy q0SrWss8km07gHLlu0Q1jRY0 R6AcGTQhgmmxcBOyiQieLB0o ZMJuhogvNKWqgQ6kLQDjB5k7 OiAw TgV5BVsrN5HcndC0IUYgsSDt NOGcpVICkV1qexgcj6otkhrv YmKnSXAmANr0HNt3ATPnpAjb OiBs PVP8ZgE2LUW9kPQibB0miLca khhjgY6wFgo+JCm1x9zpfNAk XT7pjLL5TG85CZ68xYNca7Q1 bGU9 C6StTQSrgkybqzrnaSX3TGWw CDUiqR50Df7ypWhuCi4tHEEo CCC8FOVkjDGfP4BdeM3kIeLb MDAw EPUeE7XudMSaQTmoZ054ORmq EpN2SNBphzZjE5DwWKKmkFxx BdL4z9X6Hu9GGR56PA73CC40 dGQg s6V8nKG3I2HsMMSqhtiuadtw cRX0AVStJLNwuB51Og8uyFij Na1nXYWnQML2AMNbkXHeT8Gd bG9y AzNhUWAhSRDdE2KscZBaPVlj P185TBolJmW5CZWtveUvA8Gg YOCrfShqJtT0c4X5Ik7LUb25 PC90 FI77pIXwc7G8jKM3A2VqCORz xnoixkceuRQ3FAFgWTSkpH38 To8egOajBe4eAYAuWEX0ZHKj bWVz I2PyaK5lMmQnSERsYSKlF4Lb hAQxWAuoA457FLqkBkU9UYGr nmKtS7NpCBHojCwoXwV0x7H5 Jz5Q IEsybcz7I0RrKzzhxCI+PC90 LPSwPS72bXTdlKSgz5jzoWs6 XaXmEICwITM1uSzbXJhcw0Ib ZXIt Y29 (more content not included)... Normal [facility] Consent Formson 01-15-2024 Consent Forms [id number] TIFF Normal [facility] .Auto Diff 1on 01-14-2024 Auto [place] % 6 % Normal 04-14 [facility] Comment on above: Performed By: #### 1 [id number], 0471180, [id number], 9939927377, 1639818, 59894452, [id number] ####[facility] (DEFAULT)[address] [place] [address] Baso Abs# 0.0 x10 Normal 0.0-0.2 [facility] Comment on above: Performed By: #### 1 [id number], 1289827, [id number], 9541057561, 5555756, 60592228, 7589092565 ####[facility] (DEFAULT)[address] [place] [address] Basophils/100 WBC (Bld) 0.7 % Normal 0.2-2.0 [facility] Comment on above: Performed By: #### 1 [id number], 7907565, 6350353364, 8650056259, 2665064, 32115964, 1558018519 ####[facility] (DEFAULT)[address] [place] [address] Eos Abs# 0.1 x10 Normal 0.0-0.4 [facility] Comment on above: Performed By: #### 1 [id number], 8375275, 7658716140, 4768594721, 8925013, 21405050, [id number] ####[facility] (DEFAULT)[address] [place] [address] Eosinophils/100 WBC (Bld) 1.3 % Normal 0.9-4.0 [facility] Comment on above: Performed By: #### 1 [id number], 5493049, 9052816126, 2150157907, 4266916, 39852515, 3512424138 ####[facility] (DEFAULT)[address] [place] [address] Lymph Abs# 1.6 x10 Normal 1.3-2.9 [facility] Comment on above: Performed By: #### 1 [id number], 8059436, 2521896065, 7710792450, 2374037, 17053730, 4788248859 ####[facility] (DEFAULT)[address] [place] [address]34 Lymphocytes/100 WBC (Bld) 25 % Normal 14-48 [facility] Comment on above: Performed By: #### 1 [id number], 7824257, 9544735577, 7178333133, 3816212, 96916524, 5256852213 ####[facility] (DEFAULT)[address] [place] [address] [place] Abs# 0.4 x10 Normal 0.0-0.8 [facility] Comment on above: Performed By: #### 1 [id number], 1779927, 7534761755, 3141102873, 4540655, 14564020, 8612740211 ####[facility] (DEFAULT)[address] [place] [address] 83178 Neut Abs# 4.2 x10 Normal 1.5-9.2 [facility] Comment on above: Performed By: #### 1 [id number], 5298331, 8976229721, 2129173856, 2473020, 76592550, 9668232273 ####[facility] (DEFAULT)[address] [place] [address] Neutrophils/100 WBC (Bld) 67 % Normal 44-88 [facility] Comment on above: Performed By: #### 1 [id number], 0878879, 1731359181, 4267294517, 3199327, 64691251, 2833951599 ####[facility] (DEFAULT)[address] [place] [address] Basophils Auto (Bld) [#/Vol] on 01-14-2024 Basophils (Bld) [#/Vol] Automated basophil count 0.0-0.2 [facility] Basophils/100 WBC Auto (Bld) on 01-14-2024 Basophils/100 WBC (Bld) Automated basophil % 0. 2-2.0 [facility] CBC w/ Auto Diffon Erythrocyte distribution width (RBC) [Ratio] 14.5 % Normal 11.5-15.0 [facility] Comment on above: Performed By: #### 1 [id number], 5040534, 1913535668, 0343708463, 3747897, 99942812, 8235617260 ####[facility] (DEFAULT)[address] [place] [address] Hematocrit (Bld) [Volume fraction] 37.9 % Normal 33.7-40.4 [facility] Comment on above: Performed By: #### 1 [id number], 1394285, 9476301691, 7206368112, 0033696, 96148238, 7206357556 ####[facility] (DEFAULT)[address] [place] [address]85 Hemoglobin (Bld) [Mass/Vol] 12.3 g/dL Normal 11.3-15.9 [facility] Comment on above: Performed By: #### 1 [id number], 6020632, 7242363725, 7294493891, 7456743, 89585436, [id number] ####[facility] (DEFAULT)[address] [place] [address] Man Diff? Auto Invalid Interpretation Code [facility] Comment on above: Performed By: #### 1 [id number], 5504041, 3123763697, 3022992265, 8672346, 48405912, 0696475143 ####[facility] (DEFAULT)[address] [place] [address]3941 MCH (RBC) [Entitic mass] 27 pg Normal 24-34 [facility] Comment on above: Performed By: #### 1 [id number], 2290647, 4435561003, 4868060516, 4930858, 46963456, 7694875490 ####[facility] (DEFAULT)[address] [place] [address] 48115 MCHC (RBC) [Mass/Vol] 33 g/dL Normal 26-37 [facility] Comment on above: Performed By: #### 1 [id number], 6365879, 9762527451, 8980566525, 7862915, 56530708, 8623292400 ####[facility] (DEFAULT)[address] [place] [address] 88157 MCV (RBC) [Entitic vol] 84 fL Normal 81-100 [facility] Comment on above: Performed By: #### 1 [id number], 8262209, 6512630979, 3944098244, 2978690, 77576100, 5743512302 ####[facility] (DEFAULT)[address] [place] [address] 97848 Platelet 270 x10 Normal 138-427 [facility] Comment on above: Performed By: #### 1 [id number], 1414039, 7407632693, 3878392828, 3726972, 39842431, 8722682615 ####[facility] (DEFAULT)[address] [place] [address] 19973 Platelet mean volume (Bld) [Entitic vol] 7.4 fL Normal 6.3-10.2 [facility] Comment on above: Performed By: #### 1 [id number], 5496196, 9803203906, 3772589026, 5508249, 35043904, 3169303467 ####[facility] (DEFAULT)[address] [place] [address] 10127 RBC 4.53 x10 Normal 3.70-5.30 [facility] Comment on above: Performed By: #### 1 [id number], 7352418, 7927318877, 6306009892, 4639230, 41862109, 1232111557 ####[facility] (DEFAULT)[address] [place] [address] WBC 6.3 x10 Normal 3.5-10.5 [facility] Comment on above: Performed By: #### 1 325440019, 7107455, [id number], [id number], 2684302, 69361703, [id number] ####[facility] (DEFAULT)[address] [place] [address] CMP Standardon 01-14-2024 Breakpoint Chem Normal [facility] Comment on above: Performed By: #### 1 [id number], 1043779, 6298474196, 5574337388, 7017574, 68244505, [id number] ####[facility] (DEFAULT)[address] [place] [address] eGFR Non AA >60 Invalid Interpretation Code [facility] Comment on above: Performed By: #### 1 [id number], 3320400, 6500284876, 0694574735, 9049476, 99781648, [id number] ####[facility] (DEFAULT)[address] [place] [address] eGFR AA >60 Invalid Interpretation Code [facility] Comment on above: Performed By: #### 1 [id number], 8105507, 0942380654, 4992767722, 5795690, 48492933, [id number] ####[facility] (DEFAULT)[address] [place] [address]011 Albumin [Mass/Vol] 3.6 g/dL Normal 3.5-5.0 [facility] Comment on above: Performed By: #### 1 [id number], 1374374, 3628789357, 0689095694, 3218420, 85310752, 0276729925 ####[facility] (DEFAULT)[address] [place] [address] Albumin/Globulin [Mass ratio] 1.2 {ratio} Low 1.4-2.6 [facility] Comment on above: Performed By: #### 1 [id number], 5930526, 6204698782, 5040895213, 1220231, 41540367, 7613264821 ####[facility] (DEFAULT)[address] [place] [address] Alk Phos 73 IU/L Normal 32-91 [facility] Comment on above: Performed By: #### 1 [id number], 4787237, 6602272795, 8907149046, 1764401, 19789835, 4370309054 ####[facility] (DEFAULT)[address] [place] [address] ALT [Catalytic activity/Vol] 16.0 U/L Normal 14.0-54.0 [facility] Comment on above: Performed By: #### 1 [id number], 9965281, 6586214863, 4036597510, 1869489, 79039461, 9228656448 ####[facility] (DEFAULT)[address] [place] [address] Anion gap [Moles/Vol] 6.9 mmol/L Normal 5.0-19.0 [facility] Comment on above: Performed By: #### 1 [id number], 9534228, 7066612075, 6397770817, 4397570, 32184888, 5505324923 ####[facility] (DEFAULT)[address] [place] [address] AST [Catalytic activity/Vol] 19 U/L Normal 15-41 [facility] Comment on above: Performed By: #### 1 [id number], 8194432, 0886527649, 3563778273, 4723187, 17664496, [id number] ####[facility] (DEFAULT)[address] [place] [address] Bili Total 0.2 mg/dL Low 0.3-1.2 [facility] Comment on above: Performed By: #### 1 [id number], 2586441, 4405459769, 9817343975, 3316240, 55238587, 0608816195 ####[facility] (DEFAULT)[address] [place] [address] 46822 Calcium [Mass/Vol] 8.4 mg/dL Low 8.9-10.3 [facility] Comment on above: Performed By: #### 1 [id number], 7323204, 2780993345, 9111612039, 9821205, 79126345, 7070174889 ####[facility] (DEFAULT)[address] [place] [address] 92718 Chloride [Moles/Vol] 108 mmol/L Normal 101-111 [facility] Comment on above: Performed By: #### 1 [id number], 9646091, 1125752255, 3084790818, 5365185, 76170163, 7878139964 ####[facility] (DEFAULT)[address] [place] [address] 29051 CO2 [Moles/Vol] 24 mmol/L Normal 21-32 [facility] Comment on above: Performed By: #### 1 [id number], 7647837, 6376907905, 8711271817, 2140812, 42927704, 2160978818 ####[facility] (DEFAULT)[address] [place] [address] 94947 Creatinine [Mass/Vol] 0.78 mg/dL Normal 0.60-1.30 [facility] Comment on above: Performed By: #### 1 [id number], 4231285, 0510526666, 8964134321, 9173630, 24455455, 6561845330 ####[facility] (DEFAULT)[address] [place] [address] 38192 Globulin (S) [Mass/Vol] 2.9 g/dL Normal 1.5-4.3 [facility] Comment on above: Performed By: #### 1 [id number], 2882655, 0853337547, 9988760074, 6260981, 87474180, 2219682120 ####[facility] (DEFAULT)[address] [place] [address] 17687 Glucose [Mass/Vol] 88.0 mg/dL Normal 74.0-118.0 [facility] Comment on above: Performed By: #### 1 [id number], 2348125, 7800797343, 1041022583, 9153147, 11118095, 5946749639 ####[facility] (DEFAULT)[address] [place] [address] 17895 Osmolality 270 mOsm/L Invalid Interpretation Code [facility] Comment on above: Performed By: #### 1 [id number], 3521868, 7888441503, 4522813737, 6952448, 98043283, 6169171252 ####[facility] (DEFAULT)[address] [place] [address] 17230 Potassium [Moles/Vol] 3.9 mmol/L Normal 3.6-5.1 [facility] Comment on above: Performed By: #### 1 [id number], 2923200, 2774779760, 3118391820, 5382430, 09530882, 7446748320 ####[facility] (DEFAULT)[address] [place] [address] 45929 Protein [Mass/Vol] 6.5 g/dL Normal 6.5-8.1 [facility] Comment on above: Performed By: #### 1 [id number], 5879307, 2559089361, 9173415821, 6369101, 26451670, 2286895074 ####[facility] (DEFAULT)[address] [place] [address] 17589 Sodium [Moles/Vol] 135.0 mmol/L Low 136.0-144 . 0 [facility] Comment on above: Performed By: #### 1 [id number], 9117863, 9724229643, 2820693934, 9054497, 92571153, 0732121167 ####[facility] (DEFAULT)[address] [place] [address] 11477 Urea nitrogen [Mass/Vol] 15 mg/dL Normal 8-26 [facility] Comment on above: Performed By: #### 1 562798812, 7220897, 4925493285, 4851250544, 8479656, 31056197, 0214307692 ####[facility] (DEFAULT)[address] [place] [address] 79875 Urea nitrogen/Creatinine [Mass ratio] 19.2 mg/mg High 4.6-16.2 [facility] Comment on above: Performed By: #### 1 [id number], 4070555, 1286131086, 6404416397, 8782619, 75571403, 4994478809 ####[facility] (DEFAULT)[address] [place] [address] [address]23 Ct angiography head [...] DO 01/14/24 8:11 am Technologist: FREEMAN Goldstein [facility] CT Head or Brain w/o Contras [...] MD 01/14/24 6:53 am Technologist: KALYAN Goldstein [facility] ED Clinical Summaryon 2023 ED Clinical Summary [facility] Department [address] [place], [place] [id number] ED Clinical Summary PERSON INFORMATION Name: KARUNA DUMONT Age: 43 Years Sex: FEMALE : 1980 MRN: Acct#: Visit Reason: Headache; HEADACHE Arrival: 01/14/2024 04:59:27 Discharge: 01/14/2024 09:46:00 LOS: 000 04:47 Check In: 01/14/2024 04:59:27 Checkout:01/14/2024 09:46:00 Address: [address] [place] [address] PCP: Johnathon Winter MD PROVIDER INFORMATION Provider Role Assigned Unassigned 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 Stated headache is [...] Past Substance Use (more content not included)... [facility] ED Note - Physicianon 2023 ED [...] evaluation of headache. 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 Stated headache is [...] Plan Diagnosis Sudden onset of severe headache ([id number] R51.9, Discharge, Medical) Headache, unspecified ([id number] R51.9, Medical) Plan Condition: Improved, Stable. Disposition: Disch (more content not included)... Normal [facility] ED Patient Summaryon ED Patient Summary [facility] - Emergency Department [address] [place] [address] PATIENT DISCHARGE INSTRUCTIONS Patient Information Name: KARUNA DUMONT Age: 43 Years Date of : [address] [facility]: [id number] Reason For Visit: Headache; HEADACHE Arrival Time: 01/14/2024 04:59:27 Primary Care Physician: Johnathon Winter MD Attending Physician: Santy Mckeon MD Comment: Visit Diagnosis: Diagnoses This Visit Headache (62812788) Headache, unspecified (R51.9) Sudden onset of severe headache (R51.9) The Pharmacy at [facility] is open Monday through Monday from 9A [...] alcohol and/or drug addiction problems; contact the [facility] 24/10 Crisis Hotline -text 4hope to [phone]. [...] legal documents With: Address: When: Johnathon Winter [address] [place] [address] Business (1) Within 2 to 4 days [...] and treatment you received today in the [facility] Emergency Department were for an urgent problem and are not intended as complete care. It is important for you to follow up with a doctor, nurse practitioner, or physician?s [employer] assistant manager for ongoing care. If your symptoms become [...] so we can reach you if necessary. [facility] has provided you with a complete list of medications post discharge. Please inform your cofounder/provider of your visit and for further instruction [...] amine (amphetamine-dextroa (more content not included)... Normal [facility] Eosinophils/100 WBC Auto (Bl d)on 01-14-2024 Eosinophils/100 WBC (Bld) Automated eosinophil % 0.9-4.0 [facility] Erythrocyte distribution wid th Auto (RBC) [Ratio]on 01-14-2024 Erythrocyte distribution width (RBC) [Ratio] Erythrocyte distribution width [Ratio] by Automated count 11.5-15.0 [facility] Estimated glomerular filtrat ion rate (GFR) non- Americanon 01-14-2024 GFR/1.73 sq M.predicted among non-blacks MDRD (S/P/Bld) [Vol rate/Area] Estimated glomerular filtration rate (GFR) non- [facility] Extra Greenon 01-14-2024 Tube Collected Yes Invalid Interpretation Code [facility] Comment on above: Performed By: #### 1 [id number], 6512262, 5495436100, 5953572898, 7501420, 59733371, [id number] ####[facility] (DEFAULT)[address] [place] [address] Globulin Calc (S) [Mass/Vol] on 01-14-2024 Globulin (S) [Mass/Vol] Serum globulin measurement by calculation (mass/volume) 1.5-4.3 [facility] Hematocrit Auto (Bld) [Volum e fraction]on 01-14-2024 Hematocrit (Bld) [Volume fraction] Hematocrit [Volume Fraction] of Blood by Automated count 33.7-40.4 [facility] Hemoglobin [Mass/volume] in Bloodon 01-14-2024 Hemoglobin (Bld) [Mass/Vol] Hemoglobin [Mass/volume] in Blood 11.3-15.9 [facility] Laboratory - Chemistry and C hemistry - challengeon 01-14-2024 Albumin [Mass/Vol] 3.6 g/dL 3.5-5.0 [facility] ALP [Catalytic activity/Vol] 73 U/L 32-91 [facility] ALT [Catalytic activity/Vol] 16.0 U/L 14.0-54.0 [facility] AST [Catalytic activity/Vol] 19 U/L 15-41 [facility] Bilirubin [Mass/Vol] 0.2 mg/dL Low 0.3-1.2 [facility] Calcium [Mass/Vol] 8.4 mg/dL Low 8.9-10.3 [facility] Chloride [Moles/Vol] 108 mmol/L 101-111 [facility] CO2 [Moles/Vol] 24 mmol/L 21-32 [facility] Creatinine [Mass/Vol] 0.78 mg/dL 0.60-1.30 [facility] GFR/1.73 sq M.predicted MDRD (S/P/Bld) [Vol rate/Area] mL/min/{1.73_m2} [facility] Glucose [Mass/Vol] 88.0 mg/dL 74.0-118.0 [facility] Potassium [Moles/Vol] 3.9 mmol/L 3.6-5.1 [facility] Protein [Mass/Vol] 6.5 g/dL 6.5-8.1 [facility] Sodium [Moles/Vol] 135.0 mmol/L Low 136.0-144 . 0 [facility] Urea nitrogen [Mass/Vol] 15 mg/dL 8-26 [facility] Urea nitrogen/Creatinine [Mass ratio] 19.2 mg/mg High 4.6-16.2 [facility] Laboratory - Hematology and Cell countson 01-14-2024 ESR (Bld) [Velocity] 8 mm/h 0-20 [facility] Leukocytes [#/volume] correc mini for nucleated erythrocytes in Blood by Automated counon 01-14-2024 WBC corrected for nucl RBC Auto (Bld) [#/Vol] Leukocytes [#/volume] corrected for nucleated erythrocytes in Blood by Automated coun 3.5-10.5 [facility] Lymphocytes Auto (Bld) [#/Vo l]on 01-14-2024 Lymphocytes (Bld) [#/Vol] Lymphocytes [#/volume] in Blood by Automated count 1.3-2.9 [facility] Lymphocytes/100 WBC Auto (Bl d)on 01-14-2024 Lymphocytes/100 WBC (Bld) Lymphocytes/100 leukocytes in Blood by Automated count 14-48 [facility] MCH Auto (RBC) [Entitic mass ]on 01-14-2024 MCH (RBC) [Entitic mass] MCH [Entitic mass] by Automated count 24-34 [facility] MCHC Auto (RBC) [Mass/Vol]on 01-14-2024 MCHC (RBC) [Mass/Vol] MCHC [Mass/volume] by Automated count 26-37 [facility] MCV Auto (RBC) [Entitic vol] on 01-14-2024 MCV (RBC) [Entitic vol] MCV [Entitic vol ume] by Automated count 81-100 [facility] Monocytes Auto (Bld) [#/Vol] on 01-14-2024 Monocytes (Bld) [#/Vol] Automated blood monocyte count 0.0-0.8 [facility] Monocytes/100 WBC Auto (Bld) on 01-14-2024 Monocytes/100 WBC (Bld) Automated monocyte % 1- 12 [facility] Neutrophils Auto (Bld) [#/Vo l]on 01-14-2024 Neutrophils (Bld) [#/Vol] Neutrophils [#/volume] in Blood by Automated count 1.5-9.2 [facility] Neutrophils/100 WBC Auto (Bl d)on 01-14-2024 Neutrophils/100 WBC (Bld) Automated neutrophil % 44-88 [facility] No Panel Informationon 01-13 Add Manual Differential Auto Auto F [facility] Eosinophils # (Auto) 0.1 x10 0.0-0.4 [facility] Osmolality 270 mOsm/L [facility] Platelet mean volume Auto (B ld) [Entitic vol]on 01-14-2024 Platelet mean volume (Bld) [Entitic vol] Platelet mean volume [Entitic volume] in Blood by Automated count 6.3-10.2 [facility] Platelets Auto (Bld) [#/Vol] on 01-14-2024 Platelets (Bld) [#/Vol] Platelets [#/vol ume] in Blood by Automated count 138-427 [facility] RBC Auto (Bld) [#/Vol]on RBC (Bld) [#/Vol] Erythrocytes [#/volu me] in Blood by Automated count 3.70-5.30 [facility] Sed Rateon 01-14-2024 Sed Rate 8 mm/hr Normal 0-20 [facility] Comment on above: Performed By: #### 1 [id number], 7174543, 1978103345, 7058374274, 6033733, 70264908, [id number] ####[facility] (DEFAULT)[address] [place] [address] Serum or plasma albumin/glob ulin mass ratioon 01-14-2024 Albumin/Globulin [Mass ratio] Serum or plasma albumin/globulin mass ratio Low 1.4-2.6 [facility] Serum or plasma anion gap de terminationon 01-14-2024 Anion gap [Moles/Vol] Serum or plasma an ion gap determination 5.0-19.0 [facility] VITAMIN B12on 12-29-2023 Cobalamin (Vitamin B12) [Mass/Vol] 303 pg/mL 232 - 1245 pg/mL [facility] Comment on above: Performed at: [address] [id number] Produce Department Manager: Theron Roblero PhD, Phone: [phone] [facility] ALL CBC WITH AUTO DIFFon BASOPHILS ABSOLUTE AUTO 0.1 [facility] Basophils/100 WBC (Bld) 0.8 % 0.2 - 2.0 % [facility] Eosinophils/100 WBC (Bld) 1.5 % 0.9 - 7.0 % [facility] Erythrocyte distribution width (RBC) [Ratio] 13.7 % 11.0 - 15.0 % [facility] Hematocrit (Bld) [Volume fraction] 41.5 % 36.0 - 48.0 % [facility] Hemoglobin (Bld) [Mass/Vol] 12.9 g/dL 12.0 - 16.0 g/dL [facility] IMMATURE GRANULOCYTES ABS AUTO 0.02 [facility] Immature granulocytes/100 WBC (Bld) 0.3 % 0.0 - 0.5 % [facility] Interpretation and review of laboratory results Abnormal [facility] LYMPHOCYTES ABSOLUTE AUTO 2.5 [facility] Lymphocytes/100 WBC (Bld) 34.0 % 20.5 - 60.0 % [facility] MCH (RBC) [Entitic mass] 27.4 pg 26.7 - 34.0 pg [facility] MCHC (RBC) [Mass/Vol] 31.1 g/dL 29.9 - 35.2 g/dL [facility] MCV (RBC) [Entitic vol] 88.3 fL 81.0 - 99.0 fL [facility] MONOCYTES ABSOLUTE AUTO 0.4 [facility] Monocytes/100 WBC (Bld) 5.9 % 1.7 - 12.0 % [facility] NEUTROPHILS ABSOLUTE AUTO 4.2 [facility] Neutrophils/100 WBC (Bld) 57.5 % 43.0 - 75.0 % [facility] Platelet mean volume (Bld) [Entitic vol] 8.7 fL Low 9.5 - 13.5 fL [facility] TBH EO # 0.1 [facility] TBH PLT 279 [facility] TB RBC 4.70 [facility] TB WBC 7.3 [facility] MLR HEMOGLOBIN A1Con 024 Glucose [Mass/Vol] 97 mg/dL [facility] HbA1c (Bld) [Mass fraction] 5.0 % 4.5 - 6.2 % [facility] Comment on above: ADA RECOMMENDED LIMI T 4.0 - 6.0 ADA THERAPEUTIC TARGET < 7.0 ACTION SUGGESTED > 7.0 [facility] HCG ( test) Ql (U)o n 12-06-2023 Preg Test, Ur Negative [facility] 12-06-2023 L Specimen: [id number] Received: 12/07/23 Status: NATHAN Guzmán Num: [id number] Spec Type: Surgical Subm Dr: Sanjeev Lopez Tissues: A Endometrium - Biopsy (EMBX) Procedures: HE/2, Gross/Micro L4 Age/ Patient Sex Location Account Attending Physician Karuna Dumont 43/F [place] [id number] Sanjeev Lopez SPEC NUM: [id number] RECD: 12/07/23 STATUS: NATHAN GUZMÁN NUM: [id number] GENEVA: 12/06/23- SUBM DR: Sanjeev Lopez ENTERED: 12/07/23 [facility] DR: Bert,Lab SPEC TYPE: Surgical DEPT: ROLDAN THOMPSON ENTERED BY: [id number] RECV BY: [id number] ORDERED: HE/2, Gross/Micro L4 ORDERED: HE/2, Gross/Micro [...] are performed supporting the above interpretation Specimen: [id number] Received: 12/07/23 Status: NATHAN Guzmán Num: [id number] Spec Type: Surgical Subm Dr: Sanjeev Lopez Tissues: A Endometrium - Biopsy (EMBX) Procedures: HE/2, Gross/Micro L4 Patient: Karuna Dumont [id number] (Continued) Specimen: [id number] Received: 12/07/23 (Continued) Signed (signature on file) Frida Kirby MD 12/12/23 2158 Specimen: [id number] Received: 12/07/23 Status: NATHAN Guzmán Num: [id number] Spec Type: Surgical Subm Dr: Sanjeev Lopez Tissues: A Endometrium - Biopsy (EMBX) Procedures: Melissa, Gross/Micro L4 Patient: Karuna Dumont [id number] (Continued) Specimen: [id number] Received: 12/07/23 (Continued) CPT Codes 11667 Specimen: [id number] Received: 12/07/23 Status: NATHAN Guzmán Num: [id number] Spec Type: Surgical Subm Dr: Sanjeev Lopez Tissues: A Endometrium - Biopsy (EMBX) Procedures: HE/2, Gross/Micro L4 Patient: Karuna Dumont [id number] (Continued) Signed (signature on file) Frida Kirby MD 12/12/23 6137 Normal [facility] ALL DHEA SULFATEon DHEA-SULFATE 40.8 ug/dL Abnormal 57.3 - 279.2 ug/dL [facility] METRO SEX BINDING HORMONE (S HBG), TESTOSTERONE, FREE AND BIOAVAILABLEon 12-02-2023 SEX HORM BINDING GLOB, SERUM 60.9 nmol/L 24.6 - 122.0 nmol/L [facility] Comment on above: Performed at: - [address] [id number] Produce Department Manager: Theron Roblero PhD, Phone: [phone] No Panel Informationon 12-01 Interpretation and review of laboratory results Abnormal [facility] SRMCOH TESTOSTERONE FREE/TOT EQUILIBon 12-02-2023 FREE TESTOSTERONE(DIRECT) <0.2 0.0 - 4.2 pg/mL [facility] Comment on above: Performed at: [employer] [address] [place], [place] [id number] Produce Department Manager: Theron Roblero PhD, Phone: [phone] Performed at: [employer] [id number] Produce Department Manager: Katelynn Macdonald MD, Phone: [phone] Testosterone [Mass/Vol] ng/dL Abnormal 8 - 60 ng/dL [facility] Free testosterone measuremen t by LC-MS/MSon 11-29-2023 Testosterone Free [Mass/Vol] <0.2 pg/mL 0.0-4.2 [facility] Comment on above: Performed at: [employer] [place] [id number] Director: Theron Roblero PhD, Phone: [phone] at: [employer] [id number] Director: Katelynn Macdonald MD, Phone: [phone] No Panel Informationon 11-28 Dehydroepiandrosterone Sulfate 40.8 ug/dL Abnormal 57.3-279.2 [facility] Sex Hormone Binding Globulin 60.9 nmol/L 24.6-122.0 [facility] Comment on above: Performed at: [employer] [place], [place] [id number] Director: Theron Roblero PhD, Phone: [phone] Testosterone Level <3 ng/dL Abnormal 8-60 [facility] Activated partial thrombopla stin time (aPTT) in platelet poor plasma by coagulation aon 10-25-2023 aPTT Coag (PPP) [Time] 29.5 s 22.3-36.2 [facility] Basophils Auto (Bld) [#/Vol] on 10-25-2023 Basophils (Bld) [#/Vol] 0.1 10 3/uL 0.0-0.1 [facility] Basophils/100 WBC Auto (Bld) on 10-25-2023 Basophils/100 WBC (Bld) 1.1 % 0.2-2.0 [facility] Eosinophils/100 WBC Auto (Bl d)on 10-25-2023 Eosinophils/100 WBC (Bld) 2.2 % 0.9-7.0 [facility] Erythrocyte distribution wid th Auto (RBC) [Ratio]on 10-25-2023 Erythrocyte distribution width (RBC) [Ratio] 14.5 % 11.0-15.0 [facility] Glucose mean value [Mass/vol ume] in Blood Estimated from glycated hemoglobinon 10-25-2023 Average glucose Estimated from glycated hemoglobin (Bld) [Mass/Vol] 88 mg/dL [facility] Hematocrit Auto (Bld) [Volum e fraction]on 10-25-2023 Hematocrit (Bld) [Volume fraction] 39.8 % 36.0-48.0 [facility] Hemoglobin [Mass/volume] in Bloodon 10-25-2023 Hemoglobin (d) [Mass/Vol] 12.6 g/dL 12.0-16.0 [facility] INR in Platelet poor plasma by Coagulation assayon 10-25-2023 INR Coag (PPP) [Relative time] 0.99 {INR} [facility] Comment on above: DESIRED INR:2.0-3.0 CONDITIONS NOT LISTED BELOW2.5-3.5 FOR PROSTHETIC HEART VALVE REPLACEMENT2.5-3.5 RECURRENT THROMBOSIS Laboratory - Chemistry and C hemistry - challengeon 10-25-2023 Free T4 [Mass/Vol] 1.24 ng/dL 0.76-1.46 [facility] TSH Qn 1.497 m[IU]/L 0.358-3.74 0 [facility] Laboratory - Hematology and Cell countson 10-25-2023 HbA1c (Bld) [Mass fraction] 4.7 % 4.5-6.2 [facility] Comment on above: ADA RECOMMENDED LIMI T 4.0 - 6.0ADA THERAPEUTIC TARGET < 7.0ACTION SUGGESTED> 7.0 Immature granulocytes/100 WBC (Bld) 0.2 % 0.0-0.5 [facility] Leukocytes [#/volume] correc mini for nucleated erythrocytes in Blood by Automated counon 10-25-2023 WBC corrected for nucl RBC Auto (Bld) [#/Vol] 5.5 10 3/uL 4.0-11.0 [facility] Lymphocytes Auto (Bld) [#/Vo l]on 10-25-2023 Lymphocytes (Bld) [#/Vol] 1.8 10 3/uL 1.2-3.8 [facility] Lymphocytes/100 WBC Auto (Bl d)on 10-25-2023 Lymphocytes/100 WBC (Bld) 33.3 % 20.5-60.0 [facility] MCH Auto (RBC) [Entitic mass ]on 10-25-2023 MCH (RBC) [Entitic mass] 27.9 pg 26.7-34.0 [facility] MCHC Auto (RBC) [Mass/Vol]on 10-25-2023 MCHC (RBC) [Mass/Vol] 31.7 g/dL 29.9-35.2 [facility] MCV Auto (RBC) [Entitic vol] on 10-25-2023 MCV (RBC) [Entitic vol] 88.1 fL 81.0-99.0 F [facility] Monocytes Auto (Bld) [#/Vol] on 10-25-2023 Monocytes (Bld) [#/Vol] 0.3 10 3/uL 0.3-0.8 [facility] Monocytes/100 WBC Auto (Bld) on 10-25-2023 Monocytes/100 WBC (Bld) 5.4 % 1.7-12.0 F [facility] Neutrophils Auto (Bld) [#/Vo l]on 10-25-2023 Neutrophils (Bld) [#/Vol] 3.2 10 3/uL 1.4-6.5 [facility] Neutrophils/100 WBC Auto (Bl d)on 10-25-2023 Neutrophils/100 WBC (Bld) 57.8 % 43.0-75.0 [facility] No Panel Informationon 10-24 Eosinophils # (Auto) 0.1 10 3/uL 0.0-0.7 [facility] Human Chorionic Gonadotropin, Quant <1 mIU/mL [facility] Comment on above: 5-50 0.2-1 MJFM94-14 0 1-2 RSRIQ122-1,000 2-3 GGZLP322-89,000 3-4 WEEKS1,000-50,000 4-5 WEEKS10,000-100,000 5-6 WEEKS15,000-200,000 6-8 WEEKS10,000-100,000 2-3 MONTHS Immature Granulocyte # (Auto) 0.01 10 3/uL 0.00-0.03 [facility] Platelet mean volume Auto (B ld) [Entitic vol]on 10-25-2023 Platelet mean volume (Bld) [Entitic vol] 9.7 fL 9.5-13.5 [facility] Platelets Auto (Bld) [#/Vol] on 10-25-2023 Platelets (Bld) [#/Vol] 300 10 3/uL 150-450 [facility] Prothrombin time (PT)on 10-02 PT Coag (PPP) [Time] 10.5 s 9.0-11.6 [facility] RBC Auto (Bld) [#/Vol]on RBC (Bld) [#/Vol] 4.52 10 6/uL 4.20-5.40 [facility] Coding Summaryon 09-01-2023 Coding Summary HTMLBase 64 LkatbnxuFFf8nVr+PGhlYWQ+ FO9MHGSbV17ysFTpyF5fX9LA TElOSywgQVBQTElOSyIgbmFt PH1cfRAuPPBz IC8+UD8sQKPaAzkunMBob7R4 gZK8M10zxr3eUMkqjZN5KHHr MoWdhacxo7swdOh5COpoNqop OyBt YYXwoI46WCV0sS13Ie88hZHw hOFrd0gukJb0RoSiUAUbJOM4 pBulARbyn6BmVUEeP61nrDYm c2U6 VNRvcDjlqMRtQvJwyHP6lN2g UOuinekou2bohuvpFjl0pm10 fUQyi2H9tQP7Y1ImmjT4OLPe bGQg QpbtbMHSiZ0tgddsm8pskzvq CqDgKYHpMPl3XSw0UMTaeFqk WdJlLD93UCH1HRGjbsHaG0Bs LWFs pNhoVqP1m9L0To6RB9XFYmcw I7QUPIZXSZngkQA+FG99ew29 O1AoJzonInb8ISOtKXU0iQQ5 aD0n GPSdBDyar6D5uDI4H6YfzmQg yb0uk1clFTUrJVdxL54gkBPy x4M6NNPvmID8HYCzdOgfYkBi aG93 Oyc+TWOqpMool2LbEiltp8ag c9ajyWh2LhfrWMRnvySnxXtp SXK6k6GyPr8rQEIsxMH0bND5 aD0i HxRtZgP5QZldL433OgEsbGHr RkotO03oN0SuxYS+PHRyPjx0 RYWppSwaAK7wG7JjPTOshxca bGVm zItoRA2kDHVpshorYLGbaZ8n KWLeE4e4VmAjTrB0ZItvE9Ii ICLdcoqzTf35iS6eFvYrYcW5 MGlu M1RtutZ8FAJykRZkBMijFQK3 X27lj4I8EHPcDKKdHOQ9tCR7 tJ2iyFrnaqybuARudUfmtmBn dGlj GCwwBVxtX776LMTfjOolSjPc ZGluZyBEYXRlOiAgMDUvMzEv MjAyNDwvdGQ+IOHgQCR1eJez PSAn pZThUNnfMy9awVpdkJjaBQ5i YYZnpajvPZKjsE8yZYSqiRRg rXgmTJ4xXBEaixayw098AeXc MHB0 JOGrxOSyE5YakC1qBpEjGIUu BTLtI2PkmWLpXOfeB772JYzs YfY3IYThptPpC0HaKVRkhLng OiB0 e4Y3Rr0Ba6NkdziyI2NtnCYd VnLsCfphUXw9Q1RqFkiemIL+ IJ15XDZrGP84KCz6QXF9sMoa PSdi YIZtC4AhpY3kKyCeCYIvCFLs Oyc+PHRhYmxlIHdpZHRoPScx IMNuEsTgiQcnYE9zRz0kQQKe LWNv bYeqiJJtUyOrq6tnGTLaWYzz RB1paZypH9FhwQQ0CNPch4u4 Fy29L03lD4JqkHY+PGNvbCB3 aWR0 uE2fTaUeRzF6YFfkO324SjXt yTNdGpiyt1vdo6tiiLx3MuA8 MFLuojTvpSdhXDC7b6MiYc05 Y29s IHdpZHRoPSIxNSUiIHZhbGln vp1pwF2qRi0+HERrvEH6yVM8 nZ0jYcDyWqB0NUvyK393UmQh cCIv Behif7kab3vzbGi9IfPxJZGa woRavEazCJQ1k1AiLd18T9Eu iDhbh4AeSel1zq86oADeq0X9 bGU9 U4FwOHFjkfwszNKnlIebAP8b WPOixlpoTQSkhY1vYXLdJ0u8 TbViCpS2GCyrS9TxckN4JKRp bGQg OCPtgQWZwT2dierts5gknctu LyDzJKLaMZf8YRu6RIVcvUxj LtXuUTO5YzP2DXY9dLRffZ1n bGln kkesiT6nRsu+JUF5iGLszQQY BD4cHdohjDH+VSQpTCO4nGzf EMsmZUNocB0nVMLjJ8q2JnRy LjA1 ORgsK8YogiN0MJMxrTOoNTDc wNPYfV7jlzmus3kndwwsMiMo XYFfRLd0PHt9VOOadAseZaGf ZWZ0 ZnC2JBR4iPGgrM9eaDrwnfkv nJ6qXly+MfubkAprUOG1XMc6 K1LgWtj0SOIujLpxYL9shBRu ZGlu Vj1uaPzelYliAI4oNDIjjpth e027WqTbn5pwLOXyhWUmJQsf YED4X21pk4C7OIBjBUVjXCR4 dGV4 yJ1cgWvtcihseFMaiOsbmtNm fXhkTHsuVRdiC483HYXjkNdc VnIvKLc4Q0TpPjd5CFWuoCno ZT0n lKHfFTjeBg1jwFjvqBrgWL3r VXAyhuokp972VsUyx8koLJEb rBTsFVmnZJW6Q19mm2T9VVMf MDAw IER2tKO6eQ0goAbadiblcBOk xDudcdZlrQowNXlnRSpwR546 RMFqzBntQcFyfKc0J5BbIbo9 ZCBz jMhhNO9poLDwWYqwFe3nuAjm kAdsIM3wCNIkwxlew110IbHt m7bqIVEnyYQfXVneBPM4M95s b3I6 JVDeLKXoNZU7iTG7vF6ocOwy bjogbGVmdDsgdmVydGljYWwt LCycH894DWUnhHtlUhOzsVct bnQg CRscOCp5C0VdZofdvBG+PC90 YVCeAC41mSErhQZft7rxuKb9 DyEsQGArQOF5sYphMTned6Iq ZXIt O35ptUWpe2K1LULcaKtilACi IeQdmZF9cK5cLZsitjrge1ci rtnsUlott2pszv90hL18Y92e IHdp NCCgXBWaOGUnRHAygBiocl4c mL1lCc7+BKXrnNJ3yFF7kY5p VEBjWlH3QCvsJ756XzLxfRRi Pjxj n0lsw3tojBs0SpU4CAKhkySy hCkqYEB5d9YdYc33A18dOBug JLKfZBKoAUSvBRFvnDctvy4r dG9w Ii8+SCXrkUZ0vSX8jQ8uOiDe OyU2TXujG227EcVscBHuCzfh Y68lX0QxiHH+RJSdGol2NFIl dHls NQ3bbYOxTBpoAk1gEZR2PqQu TmSlWRtxY9RrTALtjgxyshec nLM2TJXrDJGjwO59Xm8kmChw MTBw uTNSsS8avzsne7fbzbkpGrWy ZFMbIJk6VGj8OCOtzQpaGoBk TMM4EqV4LQC6jLYyhT3qnCsq bjog mO8wP7XuAXIczsfrEt20nP3h YtImLfL7BQzvMcw+M99ST0jW LCBBTUFOREEgREFXTjwvdGQ+ PHRk IUX7mOtgIGcqQYAhzI2aEKVo R1a0AyInHzA8GKhjF7AkGFSb sfacTo92aD9rKgSuMqL4SVtq O2Zv iqE3YFSpmLLgFErbFHY8A50r z4D9SUOmQIClLPU6oDT3iS9p bGlnbjogbGVmdDsgdmVydGlj YWwt YGcdZ978NGNdyAhhEiJ7XuKt KgP7TXD8Y7WnYjz1PGEgsHdc NR1ejAPhVEtzIb0msLussFda MC4w DDFvfniiEPLwjR2oICOloMRd iAlrQE2fGMRjvxpfv165PpUm ZGT4COXkfUPgL5ZrhX9yRuAg MDAw GQMkG9IikFDgFYdnJ180MIih LsK0JFZdofBpE0WpNIAkcUdq VfZ3e4B9Er22YAVBLCEohfog dGQ+ OOHyLLF1uHyrLExxJJFllM2g KLHoV0c6MtXvZwK7QAsnS1Cs EDQdomnhBd17hE0qMgIrBhC9 MGlu E3QfufT3VTGesRBjTBjxDAC2 D74gz5Q2QRUuVUDaXYE0mSY4 kK1nuFrhtwhtyKPdhZhicqJb dGlj NEmkVJqeJ414JAOjpNzsEbLS TUFMRTwvdGQ+OQSzIBN0dRuy MTqjHTVqaH2wAPIaZ1f0BkKq LjA1 RGesI9BwPSZdjlwiJn64jE5t AvFxYcU0MJfuD7BhdcR4WCJl kYCbEGwrRDT3K92yj8U9FTVt MDAw LMF6xHQ0zF0naSwvyhflyNMc nYoidsKzkGhpGXunQVxoP432 VGDcpXdwTe1HMR41DL17F8Gc Pjwv dGFibGU+PHRhYmxlIHdpZHRo LDsqMWKiSlXtyFuyEW5gBm9g EOHhHWCfyRebqGOqNbTfi1yf YXBz BObcKD8zxUxiS6RvzFJ0NJJc z4x0Be21X41oM0TwzAV+PGNv gCP5rJN0dR7jLyBuTvF4RPiz Z249 GgFwiPJyTpcut8hdh2tmvNu1 SeTeIJMzqyFqvQcpSRR1l3Zg Sm69H31zJPdqZCFpPETuNISa IHZh pDhzvd4beZ6jEv4+PGNvbCB3 uQO8kK8wBeKnLxM3UNwxJ437 SyQybDVgDuxuY91lX6WktNC+ PHRy Obr0ZVEwxDhxJV7guFPwEXat Dw9aDZI5UvWdTxGfVTidF7Xm FAMllxdzdicahNV0UTDnCPXh aW47 Qk3dpGvhUj5qPPVxJEH9JZKl dCAhH8KkhB2gAxUyUITeNBBl P2WljNIfJDdqL792KLtfEjO2 IHZl zvKkL9NjXFKobHlyZbB2i4R3 Yy3NkMzybZTwHX5iRfBdNSa4 K6AoFlk8TIOkxRzdYR8qhPMp ZGlu Wb2mlSdstOwvMD1xKARzppwq i911CoYha0ffQJSdfFPmNWbq NHS1F52ox6N6VSVeXBVqQZQ4 dGV4 vQ3azZfiauaoaXGwuYhbbeFv tIneYZlcKCaiE940OKNoeHke YlBBPrm4P3FnOny0IBEpiRep ZT0n nLRmFNhiHb7skPozmPpnAD4x ELCamtebp269JwOag1tkYFYg sLPoRTbjMEQ6E46sk0C7XRNg MDAw SOO4rRJ8lS2afPzjfwafkNIi kSastuMogSveULsrHPukR565 BXJcjQjxTz6KBxx2Q2XgTsn4 ZCBz sPgeXM2bcLOiCMhuJh4tfTbm xEtaDN9nSGKwevjxv904UuQy k9agTUHxyWXqFAlkAID0K45d b3I6 DDCzFDOwDCA7sUB8dR9yiYao bjogbGVmdDsgdmVydGljYWwt BNhmJ085YRQvwEqrCeZjwTCc Ojwv dGQ+LZ61uu37T7ZnGfhmUrr1 GSXxZNQ7nVD8sS8uJGZgQMfc v0U1iPI1J4HevqXjup8hx8eh YXBz ZTo (more content not included)... Normal [facility] ED Clinical Summaryon 2023 ED Clinical Summary 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 Urgent Care [address] [place], [place] [id number] PATIENT DISCHARGE INSTRUCTIONS Patient Information Name: KARUNA DUMONT Age: 42 Years Date of : 1980 Reason For Visit: Skin problem; RASH ON ARMS Arrival Time: 08/23/2023 14:45:23 Primary Care Physician: Johnathon Winter MD Attending Physician: Yissel Resendez PA-C Comment: Patient Education With: Address: When: Johnathon Winter MD [address] [place] [address] [phone] Rash, Adult A rash is a change [...] with your condition: Medicine Take or apply vpqq-map-rkctexq and prescription medicines only as told by [...] a bath with: ? Epsom salts. Follow community life director instructions on the packaging. You can get these at your local pharmacy or grocery store. ? Baking soda. Pour a small amount into the bath as told by your health care provider. ? Colloidal oatmeal.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 By: #### H CG, LIP, MG, CDP, CMPX #### [place] [address] Produce Department Manager: Estevan Corcoran MD Magnesium [Mass/Vol] 2.1 mg/dL 1.6 - 2 .6 mg/dL [facility] Microscopic Urinalysison Bacteria, UA MANY Abnormal None [facility] Epithelial Cells UA TOO NUMEROUS TO COUNT [facility] Interpretation and review of laboratory results Abnormal [facility] Other Observations UA Utilizing a urinal ysis as the only screening method to exclude a potential uropathogen can be unreliable in many patient populations. Rapid screening tests are less sensitive than culture and if UTI is a clinical possibility, culture should be considered despite a negative urinalysis. Abnormal NOT REQ. [facility] RBC, UA 2 TO 5 [facility] WBC, UA 2 TO 5 [facility] UA w/Reflex Cultureon 2021 Bilirubin, SemiQt,Ur Negative Normal NEG [facility] Comment on above: Performed By: #### U GEORGES GILMAN ####[place] [address] Lab Director: Estevan Corcoran MD Blood, Urine LARGE Abnormal NEG [facility] Comment on above: Performed By: #### U GEORGES GILMAN ####[place] [id number] Lab Director: Estevan Corcoran MD Clarity (U) Cloudy Abnormal CLEAR [facility] Comment on above: Result Comment: FOUL ODOR Performed By: #### U KALINA UMSUADO ####[address] [id number] Lab Director: Estevan Corcoran MD Color (U) Yellow Normal YEL [facility] Comment on above: Performed By: #### U AX, UMICAO ####[address] [address] Lab Director: Estevan Corcoran MD Glucose Ql (U) Negative Normal NEG [facility] Comment on above: Performed By: #### U AX, UMICAO ####[place] [address] Lab Director: Estevan Corcoran MD Ketones Ql (U) Negative Normal NEG [facility] Comment on above: Performed By: #### U AX, UMICAO ####[place] [address] Lab Director: Estevan Corcoran MD Leukocyte esterase Test strip Ql (U) Negative Normal NEG [facility] Comment on above: Performed By: #### U AX, UMICAO ####[place] [address] Lab Director: Estevan Corcoran MD Nitrite,Ur Negative Normal NEG [facility] Comment on above: Performed By: #### U AX, UMICAO ####[address] [address] Lab Director: Estevan Corcoran MD PH,Ur 6.0 Normal 5.0-8.0 [facility] Comment on above: Performed By: #### U AX, UMICAO ####[address] [address] Lab Director: Estevan Corcoran MD Protein Ql (U) Negative Normal NEG [facility] Comment on above: Performed By: #### U AX, UMICAO ####[address], [place] [id number] Lab Director: Estevan Corcoran MD Spec. [place],Ur 1.108 High 1.005-1.[address] [facility] Comment on above: Result Comment: POST IV CONTRAST Performed By: #### U AXGEORGES ####[address] [address] lab Director: Estevan Corcoran MD Urobilinogen,Ur Normal Normal NORM [facility] Comment on above: Performed By: #### U AXGEORGES ####[place] [address] lab Director: Estevan Corcoran MD Urinalysis with Reflex to Cu ltureon 01-03-2022 Bilirubin Urine Negative NEGATIVE [facility] Color, UA Yellow Yellow [facility] Glucose, Ur Negative NEGATIVE [facility] Interpretation and review of laboratory results Abnormal [facility] Ketones Ql (U) Negative NEGATIVE [facility] Leukocyte esterase Test strip Ql (U) Negative NEGATIVE [facility] Nitrite, Urine Negative NEGATIVE [facility] pH, UA 6.0 5 - 8 [facility] Protein, UA Negative NEGATIVE [facility] Specific [place], UA 1.108 High 1.005 - 1.03 [facility] Comment on above: POST IV CONTRAST Turbidity UA Cloudy Abnormal Clear [facility] Comment on above: FOUL ODOR Urine Hgb LARGE Abnormal NEGATIVE [facility] Urobilinogen, Urine Normal Normal [facility] Urinalysis,Microon 2 Bacteria MANY Abnormal NONE [facility] Comment on above: Performed By: #### U AX UMSUADO ####[place] [id number] lab Director: Estevan Corcoran MD Epithelial cells LM Ql (Urine sed) TOO NUMEROUS TO COUNT Normal 0-5 [facility] Comment on above: Performed By: #### U AX, UMICAO ####[address] [id number] lab Director: Estevan Corcoran MD Other Observations Utilizing a urinalys is as the only screening method to exclude a potential Abnormal NREQ [facility] Comment on above: Result Comment: urop athogen can be unreliable in many patient populations. Rapid screening tests are less sensitive than culture and if UTI is a clinical possibility, culture should be considered despite a negative urinalysis. Performed By: #### U AX, UMICAO ####[address] [id number] lab Director: Estevan Corcoran MD Urine RBC's 2 TO 5 Normal 0-2 [facility] Comment on above: Performed By: #### U AX, UMICAO ####[address] [id number] lab Director: Estevan Corcoran MD Urine WBC's 2 TO 5 Normal 0-5 [facility] Comment on above: Performed By: #### U AX, UMICAO ####[address] [address] lab Director: Estevan Corcoran MD CT LUMBAR [...] leg pain. Follow-up MRI may be helpful. [facility] RIS CONSOLIDATED EXAMINATION: CT OF THE LUMBAR [...] leg pain. Follow-up MRI may be helpful. [employer] Work Phone: Radiology Study observation (narrative) [email or web address] [facility] Work Phone: CT LUMBAR SPINE WO CONTRASTO rdered By: Boyd Beatty on 08-19-2021 [employer] Work Phone: Vital Signs Date Time Vital Sign Value Performing Clinician Facility 10-29-2024 08:55-0400 Body height 165.1 cm Georgi Carreon DPM Work Phone: [facility] 10-29-2024 08:55-0400 Body mass index (BMI) [Ratio] 31.62 kg/m2 Georgi Carreon DPM Work Phone: [facility] 10-29-2024 08:55-0400 Body weight 86.18 kg Georgi Carreon DPM Work Phone: [facility] 09-17-2024 09:57-0400 Body height 165.1 cm Georgi Carreon DPM Work Phone: [facility] 09-17-2024 09:57-0400 Body mass index (BMI) [Ratio] 31.62 kg/m2 Georgi Carreon DPM Work Phone: [facility] 09-17-2024 09:57-0400 Body weight 86.18 kg Georgi Rusher DPM Work Phone: [facility] 09-04-2024 08:26-0400 Body height 165.1 cm Geogri Rusher DPM Work Phone: [facility] 09-04-2024 08:26-0400 Body mass index (BMI) [Ratio] 31.62 kg/m2 Georgi Rusher DPM Work Phone: [facility] 09-04-2024 08:26-0400 Body weight 86.18 kg Georgi Rusher DPM Work Phone: [facility] 08-21-2024 13:09-0400 Body height 165.1 cm Georgi Rusher DPM Work Phone: [facility] 08-21-2024 13:09-0400 Body mass index (BMI) [Ratio] 31.62 kg/m2 Georgi Rusher DPM Work Phone: [facility] 08-21-2024 13:09-0400 Body weight 86.18 kg Georgi Rusher DPM Work Phone: [facility] 07-31-2024 13:47-0400 Body height 165.1 cm Pm 2 [facility] 07-31-2024 13:47-0400 Body mass index (BMI) [Ratio] 31.62 kg/m2 Pm 2 [facility] 07-31-2024 13:47-0400 Body weight 86.18 kg Pm 2 [facility] 07-31-2024 12:55-0400 Body height 165.1 cm Georgi Rusher DPM Work Phone: [facility] 07-31-2024 12:55-0400 Body mass index (BMI) [Ratio] 31.62 kg/m2 Georgi Rusher DPM Work Phone: [facility] 07-31-2024 12:55-0400 Body weight 86.18 kg Georgi Rusher DPM Work Phone: [facility] 07-29-2024 11:17-0400 Body height 167.64 cm [facility] 07-29-2024 11:17-0400 Body mass index (BMI) [Ratio] 32.9 kg/m2 [facility] 07-29-2024 11:17-0400 Body weight 92.53 kg [facility] 07-29-2024 11:17-0400 Diastolic blood pressure 86 mm[Hg] [facility] 07-29-2024 11:17-0400 Heart rate 73 /min [facility] 07-29-2024 11:17-0400 Systolic blood pressure 120 mm[Hg] [facility] 07-22-2024 14:12-0400 Body mass index (BMI) [Ratio] 34.11 kg/m2 Sanjeev Jessica DO Work Phone: [facility] 07-22-2024 14:12-0400 Body weight 92.99 kg Sanjeev Jessica DO Work Phone: [facility] 07-22-2024 14:12-0400 Diastolic blood pressure 82 mm[Hg] Sanjeev Jessica DO Work Phone: [facility] 07-22-2024 14:12-0400 Systolic blood pressure 128 mm[Hg] Sanjeev Jessica DO Work Phone: [facility] 07-16-2024 09:09-0400 Body height 165.1 cm Georgi Carreon DPM Work Phone: [facility] 07-16-2024 09:09-0400 Body mass index (BMI) [Ratio] 31.62 kg/m2 Georgi Maria Del Rosarioher DPM Work Phone: [facility] 07-16-2024 09:09-0400 Body weight 86.18 kg Georgi Carreon DPM Work Phone: [facility] 05-17-2024 11:00-0500 Body height 167.64 cm [facility] 05-17-2024 11:00-0500 Body mass index (BMI) [Ratio] 31.1 kg/m2 [facility] 05-17-2024 11:00-0500 Body weight 87.54 kg [facility] 05-17-2024 11:00-0500 Diastolic blood pressure 90 mm[Hg] [facility] 05-17-2024 11:00-0500 Heart rate 124 /min [facility] 05-17-2024 11:00-0500 Systolic blood pressure 124 mm[Hg] [facility] 04-11-2024 09:59-0500 Body height 167.64 cm [facility] 04-11-2024 09:59-0500 Body mass index (BMI) [Ratio] 31.8 kg/m2 [facility] 04-11-2024 09:59-0500 Body weight 89.35 kg [facility] 04-11-2024 09:59-0500 Diastolic blood pressure 94 mm[Hg] [facility] 04-11-2024 09:59-0500 Heart rate 86 /min [facility] 04-11-2024 09:59-0500 Systolic blood pressure 138 mm[Hg] [facility] 02-26-2024 09:54-0500 Body mass index (BMI) [Ratio] 33.12 kg/m2 Sanjeev Jessica DO Work Phone: [facility] 02-26-2024 09:54-0500 Body weight 90.27 kg Sanjeev Jessica DO Work Phone: [facility] 02-26-2024 09:54-0500 Diastolic blood pressure 80 mm[Hg] Sanjeev Jessica DO Work Phone: [facility] 02-26-2024 09:54-0500 Systolic blood pressure 130 mm[Hg] Sanjeev Jessica DO Work Phone: [facility] 01-18-2024 14:03-0400 Body height 165.1 cm [facility] 01-18-2024 14:03-0400 Body mass index (BMI) [Ratio] 31.45 kg/m2 [facility] 01-18-2024 14:03-0400 Body weight 85.73 kg [facility] 01-03-2024 10:48-0400 Body mass index (BMI) [Ratio] 33.75 kg/m2 Sanjeev Jessica DO Work Phone: [facility] 01-03-2024 10:48-0400 Body weight 91.99 kg Sanjeev Jessica DO Work Phone: [facility] 01-03-2024 10:48-0400 Diastolic blood pressure 74 mm[Hg] Sanjeev Jessica DO Work Phone: [facility] 01-03-2024 10:48-0400 Systolic blood pressure 116 mm[Hg] Sanjeev Jessica DO Work Phone: [facility] 12-06-2023 11:46-0400 Body mass index (BMI) [Ratio] 32.78 kg/m2 Sanjeev Jessica DO Work Phone: [facility] 12-06-2023 11:46-0400 Body weight 89.36 kg Sanjeev Jessica DO Work Phone: [facility] 12-06-2023 11:46-0400 Diastolic blood pressure 72 mm[Hg] Sanjeev Jessica DO Work Phone: [facility] 12-06-2023 11:46-0400 Systolic blood pressure 124 mm[Hg] Sanjeev Jessica DO Work Phone: [facility] 11-29-2023 13:37-0400 Body mass index (BMI) [Ratio] 34.28 kg/m2 Sanjeev Jessica DO Work Phone: [facility] 11-29-2023 13:37-0400 Body weight 93.44 kg Sanjeev Jessica DO Work Phone: [facility] 11-29-2023 13:37-0400 Diastolic blood pressure 74 mm[Hg] Sanjeev Jessica DO Work Phone: [facility] 11-29-2023 13:37-0400 Systolic blood pressure 128 mm[Hg] Sanjeev Jessica DO Work Phone: [facility] 06-12-2023 10:05-0400 Body height 165.1 cm Rohit Metzger MD Work Phone: [facility] 06-12-2023 10:05-0400 Body mass index (BMI) [Ratio] 38.94 kg/m2 Rohit Metzger MD Work Phone: [facility] 06-12-2023 10:05-0400 Body weight 106.14 kg Rohit Metzger MD Work Phone: [facility] 05-16-2023 13:48-0500 Body height 165.1 cm Rohit Metzger MD Work Phone: [facility] 05-16-2023 13:48-0500 Body mass index (BMI) [Ratio] 38.94 kg/m2 Rohit Metzger MD Work Phone: [facility] 05-16-2023 13:48-0500 Body weight 106.14 kg Rohit Metzger MD Work Phone: [facility] 05-08-2023 13:10-0500 Body height 165.1 cm Jennie Colon SEARCH ENGINE MARKETING SPECIALIST-LAYDOWN MACHINE OPERATOR Work Phone: [facility] 05-08-2023 13:10-0500 Body mass index (BMI) [Ratio] 38.94 kg/m2 Jennie Colon SEARCH ENGINE MARKETING SPECIALIST-LAYDOWN MACHINE OPERATOR Work Phone: [facility] 05-08-2023 13:10-0500 Body weight 106.14 kg Jennie Colon SEARCH ENGINE MARKETING SPECIALIST-LAYDOWN MACHINE OPERATOR Work Phone: [facility] 05-08-2023 13:10-0500 Diastolic blood pressure 72 mm[Hg] Jennie Colon SEARCH ENGINE MARKETING SPECIALIST-LAYDOWN MACHINE OPERATOR Work Phone: [facility] 05-08-2023 13:10-0500 Heart rate 99 /min Jennie Colon SEARCH ENGINE MARKETING SPECIALIST-LAYDOWN MACHINE OPERATOR Work Phone: [facility] 05-08-2023 13:10-0500 Systolic blood pressure 124 mm[Hg] Jennie Colon SEARCH ENGINE MARKETING SPECIALIST-LAYDOWN MACHINE OPERATOR Work Phone: [employer] 04-14-2023 11:43-0500 Diastolic blood pressure 97 mm[Hg] Kal Martinez SEARCH ENGINE MARKETING SPECIALIST-LAYDOWN MACHINE OPERATOR Work Phone: [employer] Comment on above: . 04-14-2023 11:43-0500 Systolic blood pressure 133 mm[Hg] Kal Martinez SEARCH ENGINE MARKETING SPECIALIST-LAYDOWN MACHINE OPERATOR Work Phone: [employer] Comment on above: . 04-14-2023 11:38-0500 Body mass index (BMI) [Ratio] 39.01 kg/m2 Kal Martinez SEARCH ENGINE MARKETING SPECIALIST-LAYDOWN MACHINE OPERATOR Work Phone: [employer] 04-14-2023 11:38-0500 Body temperature 98.6 [degF] Kal Yuer SEARCH ENGINE MARKETING SPECIALIST-LAYDOWN MACHINE OPERATOR Work Phone: [employer] 04-14-2023 11:38-0500 Body weight 106.32 kg Kal Martinez SEARCH ENGINE MARKETING SPECIALIST-LAYDOWN MACHINE OPERATOR Work Phone: [employer] 04-14-2023 11:38-0500 Heart rate 92 /min Kal Martinez SEARCH ENGINE MARKETING SPECIALIST-LAYDOWN MACHINE OPERATOR Work Phone: [employer] 04-14-2023 11:38-0500 Respiratory rate 14 /min Kal Martinez SEARCH ENGINE MARKETING SPECIALIST-LAYDOWN MACHINE OPERATOR Work Phone: [employer] 04-14-2023 11:38-0500 SaO2% (BldA) [Mass fraction] 100 % Kal Martinez SEARCH ENGINE MARKETING SPECIALIST-LAYDOWN MACHINE OPERATOR Work Phone: [employer] 01-02-2023 10:00-0400 Body height 162.56 cm Johnathon Winter Other [employer] Other 01-02-2023 10:00-0400 Body mass index (BMI) [Ratio] 42.91 kg/m2 Johnathon Winter Other [employer] Other 01-02-2023 10:00-0400 Body weight 113.4 kg Johnathon Winter Other [employer] Other 01-02-2023 10:00-0400 Diastolic blood pressure 82 mm[Hg] Johnathon Winter Other [employer] Other 01-02-2023 10:00-0400 Systolic blood pressure 126 mm[Hg] Johnathon Winter Other [employer] Other 2022 11:00-0400 Body height 162.56 cm Johnathon Winter Other [employer] Other 2022 11:00-0400 Body mass index (BMI) [Ratio] 44.56 kg/m2 Johnathon Winter Other [employer] Other 2022 11:00-0400 Body weight 117.75 kg Johnathon Winter Other [employer] Other 2022 11:00-0400 Diastolic blood pressure 101 mm[Hg] Johnathon Winter Other [employer] Other 2022 11:00-0400 SaO2% (BldA) [Mass fraction] 100 % Johnathon Winter Other [employer] Other 2022 11:00-0400 Systolic blood pressure 138 mm[Hg] Johnathon Winter Other [employer] Other 10-11-2022 18:45-0400 Body height 165.1 cm Roxie Garcia MD Work Phone: [facility] 10-11-2022 18:45-0400 Body mass index (BMI) [Ratio] 43.93 kg/m2 Roxie Garcia MD Work Phone: [employer] 10-11-2022 18:45-0400 Body temperature 99 [degF] Roxie Garcia MD Work Phone: [employer] 10-11-2022 18:45-0400 Body weight 119.75 kg Roxie Garcia MD Work Phone: [employer] 10-11-2022 18:45-0400 Diastolic blood pressure 108 mm[Hg] Roxie Garcia MD Work Phone: [employer] 10-11-2022 18:45-0400 Heart rate 87 /min Roxie Garcia MD Work Phone: [employer] 10-11-2022 18:45-0400 Respiratory rate 16 /min Roxie Garcia MD Work Phone: [employer] 10-11-2022 18:45-0400 SaO2% (BldA) [Mass fraction] 98 % Roxie Garcia MD Work Phone: [employer] 10-11-2022 18:45-0400 Systolic blood pressure 160 mm[Hg] Roxie Garcia MD Work Phone: [employer] 01-03-2022 13:54-0400 Diastolic blood pressure 95 mm[Hg] Teo Thomas DO [employer] 01-03-2022 13:54-0400 Heart rate 61 /min Teo Agueroan DO [employer] 01-03-2022 13:54-0400 SaO2% (BldA) [Mass fraction] 100 % Teo Thomas DO [employer] 01-03-2022 13:54-0400 Systolic blood pressure 142 mm[Hg] Teo Agueroan DO [employer] 01-03-2022 11:46-0400 Body height 165.1 cm Teo Thomas DO [employer] 01-03-2022 11:46-0400 Body mass index (BMI) [Ratio] 44.1 kg/m2 Teo Thomas DO [employer] [facility] [employer] 01-03-2022 11:46-0400 Body temperature 97.7 [degF] [facility] 01-03-2022 11:46-0400 Body weight 120.2 kg Teo [facility]eroan [facility] [employer] 01-03-2022 11:46-0400 Respiratory rate 16 /min Teo Froylanfman DO [facility] 08-19-2021 18:03-0400 Diastolic blood pressure 98 mm[Hg] Radha Sanders MD Work Phone: [facility] [employer] 08-19-2021 18:03-0400 Heart rate 92 /min Radha Sanders MD Work Phone: [facility] [employer] 08-19-2021 18:03-0400 Respiratory rate 16 /min Radha Sanders MD Work Phone: [facility] [employer] 08-19-2021 18:03-0400 SaO2% (BldA) [Mass fraction] 96 % Radha Sanders MD Work Phone: [facility] [employer] 08-19-2021 18:03-0400 Systolic blood pressure 145 mm[Hg] Radha Sanders MD Work Phone: [facility] [employer] 08-19-2021 16:28-0400 Body height 165.1 cm Radha Sanders MD Work Phone: [facility] [employer] 08-19-2021 16:28-0400 Body mass index (BMI) [Ratio] 45.76 kg/m2 Radha Sanders MD Work Phone: [facility] [employer] 08-19-2021 16:28-0400 Body temperature 98.6 [degF] Radha Sanders MD Work Phone: [employer] 08-19-2021 16:28-0400 Body weight 124.74 kg Rad[facility] Encounter Date Encounter Type Care Provider Facility Start: 01-06-2025 End: 01-06-2025 ambulatory Christiano Rivera MD Facility:[facility] Start: 01-03-2025 End: 01-03-2025 Orders Only Burt Kurtirene Meyer SEARCH ENGINE MARKETING SPECIALIST-LAYDOWN MACHINE OPERATOR Work Phone: [facility] Start: 11-05-2024 End: 11-05-2024 Orders Only Burt Balderramahermilo SEARCH ENGINE MARKETING SPECIALIST-LAYDOWN MACHINE OPERATOR Work Phone: [facility] [employer] Start: 10-29-2024 End: 10-29-2024 Bamboo flowsheet Georgi S Rusher DPM Work Phone: [facility] Start: 10-29-2024 End: 10-29-2024 Bamboo flowsheet Georgi S Rusher DPM Work Phone: [facility] Start: 10-29-2024 End: 10-29-2024 Postop follow up visit related to original px Georgi S Rusher DPM Work Phone: [facility] Comment on above: S/P foot surgery (Pr imary Dx); Left foot pain Start: 10-29-2024 End: 10-29-2024 ambulatory GEORGI S RUSHER Not Available Start: 10-21-2024 End: 10-21-2024 ambulatory BURTJOY LEHMAN [facility] Start: 09-17-2024 End: 09-17-2024 Bamboo flowsheet Georgi S Rusher DPM Work Phone: [facility] Start: 09-17-2024 End: 09-17-2024 Bamboo flowsheet Georgi S Rusher DPM Work Phone: [facility] Start: 09-17-2024 End: 09-17-2024 Postop follow up visit related to original px Georgi S Rusher DPM Work Phone: [facility] Comment on above: S/P foot surgery (Pr imary Dx); Left foot pain Start: 09-17-2024 End: 09-17-2024 ambulatory GEORGI S RUSHER Not Available Start: 09-04-2024 End: 09-04-2024 Bamboo flowsheet Georgi Carreon DPM Work Phone: [facility] Start: 09-04-2024 End: 09-04-2024 Bamboo flowsheet Georgi Carreon DPM Work Phone: [facility] Start: 09-04-2024 End: 09-04-2024 Postop follow up visit related to original px Georgi Carreon DPM Work Phone: [facility] Comment on above: S/P foot surgery (Pr imary Dx); Left foot pain Start: 09-04-2024 End: 09-04-2024 ambulatory GEORGI Whitney MARIA DEL ROSARIO Not Available Start: 09-02-2024 End: 09-02-2024 ambulatory BURT LEHMAN [facility] Start: 08-21-2024 End: 08-21-2024 Bamboo flowsheet Georgi Carreon DPM Work Phone: [facility] Start: 08-21-2024 End: 08-21-2024 Bamboo flowsheet Georgi Carreon DPM Work Phone: [facility] Start: 08-21-2024 End: 08-21-2024 Postop follow up visit related to original px Georgi Carreon DPM Work Phone: [facility] Comment on above: S/P foot surgery (Pr imary Dx); Left foot pain; Difficulty walking; Instability of left ankle joint Start: 08-21-2024 End: 08-21-2024 ambulatory GEORGI CARREON Not Available Start: 08-08-2024 End: 08-08-2024 Evaluation and management of inpatient GEORGI CARREON [facility] Start: 08-06-2024 End: 08-06-2024 ambulatory [facility] Start: 08-05-2024 End: 08-05-2024 ambulatory [facility] Start: 08-05-2024 End: 08-05-2024 Encounter for preprocedural cardiovascular examination [facility] Start: 07-31-2024 End: 07-31-2024 Patient encounter procedure [facility] Pre-Admission Testing [address] [facility] - Pre Ad[facility] Comment on above: Preop examination (P rimary Dx); Hypertension, unspecified type Start: 07-31-2024 End: 07-31-2024 Preprocedural examination done Pm 2 [facility] Start: 07-31-2024 End: 07-31-2024 Soufunheet Georgi Carreon DPM Work Phone: [facility] Start: 07-31-2024 End: 07-31-2024 [employer] [employer] Georgi Carreon DPM Work Phone: [facility] Start: 07-31-2024 Encounter for other preprocedural examination JUDI ORTEGA [facility] Start: 07-31-2024 End: 07-31-2024 Office outpatient visit 25 minutes Georgi Carreon DPM Work Phone: [facility] Comment on above: Hallux valgus of lef t foot (Primary Dx); Instability of left foot joint; Tailor's bunion of left foot; Acquired deformity of left toe; 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; Equinus contracture of left ankle Start: 07-31-2024 End: 07-31-2024 ambulatory GEORGI CARRENO [facility] Start: 07-31-2024 End: 07-31-2024 ambulatory MONSERRAT ANDERSON [facility] Start: 07-29-2024 End: 07-29-2024 ambulatory [facility] Work Phone: Start: 07-29-2024 End: 07-29-2024 Patient encounter procedure [facility] Work Phone: Start: 07-22-2024 End: 07-22-2024 Patient encounter procedure Sanjeev Lopez DO Work Phone: [facility] Work Phone: Start: 07-22-2024 End: 07-22-2024 Periodic preventive med est patient 40-64yrs Sanjeev Jessica DO Work Phone: [facility] Comment on above: Well woman exam with routine gynecological exam; Breast cancer screening by mammogram Start: 07-22-2024 Non-patient / Non-visit [facility] Work Phone: Start: 07-22-2024 End: 07-22-2024 Bamboo flowsheet Sanjeev Jessica DO Work Phone: [facility] Start: 07-22-2024 End: 07-25-2024 Bamboo flowsheet Sanjeev Jessica DO Work Phone: [facility] Start: 07-22-2024 End: 07-25-2024 Clinisync Result Encounter Sanjeev Jessica DO Work Phone: [facility] External Department Unsolicited Start: 07-22-2024 End: 07-22-2024 ambulatory SANJEEV JESSICA Not Available Start: 07-17-2024 End: 07-17-2024 ambulatory ORRUM Chelo [facility] Start: 07-17-2024 End: 07-17-2024 [facility] Start: 07-16-2024 End: 07-16-2024 Bamboo flowsheet Georgi Carreon DPM Work Phone: [facility] Start: 07-16-2024 End: 07-16-2024 Bamboo flowsheet Georgi Carreon DPM Work Phone: [facility] Start: 07-16-2024 End: 07-16-2024 Office outpatient visit 25 minutes Georgi Carreon DPM Work Phone: [facility] Comment on above: Hallux valgus of lef t foot (Primary Dx); Instability of left foot joint; Tailor's bunion of left foot; Acquired deformity of left toe; 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; Equinus contracture of left ankle; Left foot pain; Vitamin D insufficiency Start: 07-16-2024 End: 07-16-2024 ambulatory GEORGI Whitney MARIA DEL ROSARIO Not Available Start: 07-08-2024 Non-patient / Non-visit [facility] Work Phone: Start: 07-03-2024 End: 07-03-2024 ambulatory [facility] Start: 06-28-2024 Emergency department patient visit Johnathon Winter Facility:[facility] Start: 05-29-2024 End: 05-29-2024 ambulatory [facility] Start: 05-17-2024 End: 05-17-2024 ambulatory [facility] Work Phone: Start: 05-17-2024 End: 05-17-2024 Patient encounter procedure [facility] Work Phone: Start: 05-08-2024 End: 05-08-2024 ambulatory [facility] Start: 04-15-2024 Non-patient / Non-visit [facility] Work Phone: Start: 04-11-2024 Patient encounter status [facility] Start: 04-11-2024 End: 04-11-2024 ambulatory [facility] Work Phone: Start: 04-11-2024 End: 04-11-2024 Encounter for general adult medical examination without abnormal findings [facility] Start: 04-11-2024 End: 04-11-2024 Patient encounter procedure [facility] Work Phone: Start: 04-08-2024 End: 04-08-2024 ambulatory [facility] Start: 04-01-2024 End: 04-01-2024 Clinisync Result Encounter Sanjeev Lopez DO Work Phone: [facility] External Department Unsolicited Start: 04-01-2024 End: 04-01-2024 Clinisync Result Encounter Sanjeev Jessica DO Work Phone: [facility] Unsolicited Start: 04-01-2024 Non-patient / Non-visit [facility] Work Phone: Start: 03-22-2024 End: 03-22-2024 Documentation procedure Caitlyn Carter [facility] Start: 02-26-2024 [...] Not Available Start: 01-30-2024 Non-patient / Non-visit [facility] Work Phone: Start: 01-26-2024 End: 01-26-2024 Orders Only Alfonso Liang MD Work [facility] Start: 01-26-2024 End: 01-26-2024 Evaluation and management of inpatient FIDEL YUER [facility] Start: 01-25-2024 End: 01-26-2024 ambulatory [facility] Start: 01-19-2024 Non-patient / Non-visit [facility] Work Phone: Start: 01-18-2024 End: 01-18-2024 Admission to [facility] Phone Call Provider 3 Tom Issa [facility] Start: 01-18-2024 End: 01-18-2024 Evaluation and management of inpatient JOHNATHON WINTER [facility] Start: 01-14-2024 Non-patient / Non-visit [facility] Work Phone: Start: 01-14-2024 End: 01-14-2024 Emergency department patient visit Santy [facility] Facility:[facility] Start: 01-03-2024 End: 01-03-2024 Bamboo flowsheet Sanjeev [...] Not Available Start: 01-03-2024 End: 01-03-2024 ambulatory [facility] Start: 12-28-2023 End: 12-29-2023 Clinisync Result Encounter [...] DO Sanjeev Jessica Work Phone: [facility] [place] Work Phone: Start: 12-06-2023 End: 12-06-2023 Patient encounter procedure Sanjeev Jessica DO Work Phone: [facility] Comment on above: Pre-op examination; Menorrhagia with regular cycle; Abnormal uterine bleeding (AUB); Pelvic pain; Hormone disorder Start: 12-06-2023 End: 12-06-2023 Preprocedural examination done Sanjeev Jessica DO Work Phone: [facility] Start: 12-06-2023 End: 12-06-2023 ambulatory Sanjeevbenji Suggso [facility] Work Phone: Start: 11-29-2023 Non-patient / Non-visit DO Cor ey Jessica Work Phone: [facility] Work Phone: Start: [...] Available Start: 11-22-2023 End: 11-22-2023 ambulatory JUDI ORTGEA [facility] Start: 10-25-2023 Non-patient / Non-visit DO Bert Lopez Work Phone: [facility] Work Phone: Start: 08-23-2023 End: 08-23-2023 ambulatory Johnathon Thompson Winter Facility:[facility] Start: 06-12-2023 End: 06-12-2023 ambulatory [facility] Comment on above: Lumbar radiculopathy , chronic (Primary Dx); Herniated lumbar intervertebral disc Start: 06-12-2023 End: 06-12-2023 Office outpatient visit 10 minutes Rohit Smith MD Work Phone[facility] Comment on above: 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) Start: 05-24-2023 Orders Only Jennie barlow SEARCH ENGINE MARKETING SPECIALIST-LAYDOWN MACHINE OPERATOR Work Phone: [facility] Comment on above: Herniated lumbar int ervertebral disc (Primary Dx); Lumbar radiculopathy, chronic Start: 05-23-2023 End: 05-23-2023 ambulatory Tee Peterson [facility] Work Phone: Start: 05-23-2023 End: 05-23-2023 Departed Referred MD Tee Peterson Work Phone: [facility] Start: 05-16-2023 End: 05-16-2023 ambulatory [facility] Start: 05-16-2023 End: 05-16-2023 Office outpatient new 30 minutes Rohit Smith MD Work Phone: [facility] Comment on above: 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); Finger injury, right, initial encounter Start: 05-15-2023 Orders Only Jennie barlow SEARCH ENGINE MARKETING SPECIALIST-LAYDOWN MACHINE OPERATOR Work Phone: [facility] Comment on above: Herniated lumbar int ervertebral disc (Primary Dx) Start: 05-10-2023 End: 05-10-2023 ambulatory Johnathon Winter Other [facility] [employer] Other Start: 05-10-2023 Encounter by kriss Winter [facility] Start: 05-10-2023 Non-patient / Non-visit MD Jones Work Phone: [facility] [employer] Work Phone: Start: 05-08-2023 End: 05-08-2023 Office outpatient new 45 minutes Jennie Colon SEARCH ENGINE MARKETING SPECIALIST-LAYDOWN MACHINE OPERATOR Work Phone: [facility] Comment on above: Lumbar radiculopathy , chronic (Primary Dx); Urinary incontinence without sensory awareness; Sensory deficit, left; Spinal stenosis of lumbar region with neurogenic claudication Start: 05-04-2023 End: 05-04-2023 Office outpatient visit 10 minutes Everett Okeefe NP Work Phone: [facility] Comment on above: 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); Pain in finger of right hand Start: 04-19-2023 End: 04-19-2023 ambulatory Scottie Riki Other [place] [employer] Other Start: 04-19-2023 Telephone encounter Scottie Lyn [facility] Start: 04-14-2023 End: 04-14-2023 ambulatory JOHNATHON WINTER [facility] Comment on above: Back pain, unspecifi ed back location, unspecified back pain laterality, unspecified chronicity (Primary Dx) Start: 04-14-2023 End: 04-14-2023 Office outpatient visit 15 minutes Kal Martinez SEARCH ENGINE MARKETING SPECIALIST-LAYDOWN MACHINE OPERATOR Work Phone: [facility] Comment on above: Acute left-sided low back pain with left-sided sciatica (Primary Dx) Start: 04-12-2023 End: 04-12-2023 ambulatory Johnathon Winter Other [employer] Other Start: 04-12-2023 Telephone encounter Johnathon Winter [facility] Start: 04-11-2023 End: 04-11-2023 ambulatory Johnathon Winter Other [employer] Other Start: 04-11-2023 Telephone encounter Johnathon Winter [facility] Start: 04-10-2023 End: 04-10-2023 ambulatory Johnathon Winter Other [employer] Other Start: 04-10-2023 Encounter by kriss burgos Johnathon Winter [facility] Start: 01-30-2023 End: 01-30-2023 ambulatory Johnathon Winter Other [employer] Other Start: 01-30-2023 Telephone encounter Johnathon Winter [facility] Start: 01-02-2023 End: 01-02-2023 ambulatory Johnathon Winter Other [employer] Other Start: 01-02-2023 Office outpatient vi sit 15 minutes Johnathon Winter [facility] Start: 12-09-2022 End: 12-09-2022 ambulatory Johnathon Winter Other [employer] Other Start: 12-09-2022 Telephone encounter Johnathon Winter [facility] Start: 12-08-2022 End: 12-08-2022 ambulatory Johnathon Winter Other [employer] Other Start: 12-08-2022 Telephone encounter Johnathon Winter [facility] Start: 2022 End: 2022 ambulatory Johnathon Winter Other [employer] Other Start: 2022 Office outpatient ne w 30 minutes Johnathon Winter [facility] Start: 10-11-2022 End: 10-11-2022 Emergency department patient visit JOHNATHON WINTER [facility] Start: 10-11-2022 End: 10-11-2022 Emergency department patient visit Roxie Garcia MD Work Phone: [facility] Comment on above: Sprain of right ankl e, unspecified ligament, initial encounter (Primary Dx) Start: 07-11-2022 End: 07-11-[address] SANJEEV LOPEZ . Facility:[facility] Start: 04-29-2022 End: 04-30-[address] SANJEEV LOPEZ . Facility:[facility] Start: 02-16-2022 End: 02-16-2022 Emergency department patient visit JOHNATHON WINTER [facility] Start: 01-03-2022 End: 01-03-2022 Emergency department patient visit JOHNATHON WINTER [facility] Start: 01-03-2022 End: 01-03-2022 Emergency department patient visit Teo Mina Thomas DO [facility] Comment on above: Gastroenteritis (Neetu emil Dx) Start: 08-19-2021 End: 08-19-2021 Emergency department patient visit Radha Sanders MD Work Phone: [facility] Comment on above: Herniated lumbar [...] in Cervix by Cyto stain Burt Andrestheodore SEARCH ENGINE MARKETING SPECIALIST-LAYDOWN MACHINE OPERATOR Work Phone: Start: 07-16-2024 Radex foot [...] ankle complete minimum 3 views Bailee Lew SEARCH ENGINE MARKETING SPECIALIST - LAYDOWN MACHINE OPERATOR Work Phone: Start: 01-03-2022 Urinalysis microscopic only Zachariah Foster SEARCH ENGINE MARKETING SPECIALIST - SURVEILLANCE INSPECTOR Work Phone: Start: 01-03-2022 Urnls dip stick/tabl et rgnt auto w/o microscopy Zachariah Foster SEARCH ENGINE MARKETING SPECIALIST - SURVEILLANCE INSPECTOR Work Phone: Start: 01-03-2022 Ct abdomen & pelvis w/contrast material Zachariah Foster SEARCH ENGINE MARKETING SPECIALIST - SURVEILLANCE INSPECTOR Work Phone: Start: 01-03-2022 Assay of lipase Zachariah Foster SEARCH ENGINE MARKETING SPECIALIST - SURVEILLANCE INSPECTOR Work Phone: Start: 12-01-2021 Adult depression scr eening assessment Serina ALVARADO Start: 08-19-2021 Ct lumbar spine w/o contrast material Radha Sanders MD Work Phone: Plan of Treatment Date Care Activity Detail Author Start: 07-23-2027 Screening for malignant neoplasm of cervix Pap Smear [facility] Start: 10-21-2025 Tobacco Screening Tobacco Screening [facility] Start: 08-08-2025 Adult BMI Screening Adult BMI Screening [facility] Start: 07-31-2025 Adult BMI Screening Adult BMI Screening [facility] Start: 07-31-2025 Tobacco Screening Tobacco Screening [facility] Start: 07-29-2025 End: 07-29-2025 [facility] Start: 01-29-2025 End: 01-29-2025 Patient encounter procedure 01/29/2025 9:00 AM EDT Office Visit [facility] [address] [place] [id number] Georgi Carreon DPM [address] [place] [address] [facility] Start: 01-25-2025 Adult BMI Screening Adult BMI Screening [facility] Start: 01-25-2025 Tobacco Screening Tobacco Screening [facility] Start: 01-17-2025 Adult BMI Screening Adult BMI Screening [facility] Start: 01-02-2025 Tobacco Screening Tobacco Screening [facility] Start: 12-02-2024 Influenza vaccination Influenza Vaccine [facility] Start: 10-29-2024 End: 10-29-2024 Patient encounter procedure [facility] Comment on above: Arrived Start: 09-18-2024 End: 09-18-2024 Patient encounter procedure 09/18/2024 1:15 PM EDT Office Visit [facility] [address] [place] [id number] Georgi Carreon DPM [address] [place], [place] [id number] [facility] Start: 09-17-2024 End: 09-17-2024 Patient encounter procedure 09/17/2024 9:45 AM EDT Office Visit [facility] [address] [place] [id number] Georgi Carreon DPM [address] [place] [address] Arrived [facility] Comment on above: Arrived Start: 09-04-2024 End: 09-04-2024 Patient encounter procedure [facility] Comment on above: Arrived Start: 08-21-2024 End: 08-21-2024 Patient encounter procedure [facility] Comment on above: Arrived Start: 08-08-2024 End: 08-08-2024 Admission to same day surgery center 08/08/2024 7:30 AM EDT - 08/08/2024 10:30 AM EDT Surgery [facility] - Surgery [address] [place] [phone] Georgi Carreon DPM [address] [place] [address] FUSION LAPIDUS & CPT 86020 [67569 (CPT )] [facility] - Surgery Comment on above: FUSION LAPIDUS & CPT 16419 [19975 (CPT ) ] Start: 08-08-2024 End: 08-08-2024 Corrj hallux valgus w/sesmdc w/1metar medial cnf FUSION LAPIDUS left foot hallux valgus, deformity of 2nd & 5th metatarsal, acquired deformity of toe, equinus contracture, 5th metatarsal tailors bunion 08/08/2024 7:30 AM EDT [facility] Start: 08-08-2024 End: 08-08-2024 Gastrocnemius recession REPAIR MUSCLE RECESSION GASTROCNEMIUS left foot hallux valgus, deformity of 2nd & 5th metatarsal, acquired deformity of toe, equinus contracture, 5th metatarsal tailors bunion 08/08/2024 7:30 AM EDT [facility] Start: 08-08-2024 End: 08-08-2024 Osteot w/wo lngth shrt/corrj metar xcp 1st ea OSTEOTOMY JENNIFER METATARSAL left foot hallux valgus, deformity of 2nd & 5th metatarsal, acquired deformity of toe, equinus contracture, 5th metatarsal tailors bunion 08/08/2024 7:30 AM EDT [facility] Start: 08-08-2024 End: 08-08-2024 Rcnstj angular dfrm toe soft tiss px only EXCISION SOFT TISSUE FOOT left foot hallux valgus, deformity of 2nd & 5th metatarsal, acquired deformity of toe, equinus contracture, 5th metatarsal tailors bunion 08/08/2024 7:30 AM EDT [facility] Start: 08-08-2024 Subsequent hospital visit by physician 08/08/2024 7:30 AM EDT Hospital Encounter [facility] - Surgery [address] [place] [address] Georgi Carreon, DPM [address] [place] [address] [facility] Start: 07-31-2024 End: 07-31-2024 Patient encounter procedure [facility] Comment on above: Arrived Start: 07-22-2024 End: 07-22-2024 Patient encounter procedure [facility] Comment on above: Arrived Start: 07-22-2024 End: 09-21-2025 MG Breast - bilateral Screening Bilateral screening mammogram Imaging Routine Breast cancer screening by mammogram Expected: 07/22/2024 (Approximate), Expires: 09/21/2025 [facility] Comment on above: Expected: 07/22/2024 (Approximate), Expi res: 09/21/2025 Start: 07-16-2024 End: 07-16-2024 Patient encounter procedure 07/16/2024 9:00 AM EDT Office Visit [facility] [address] [place] [phone] Georgi Carreon, DPM [address] [place], [place] [id number] Arrived [facility] Comment on above: Arrived Start: 06-11-2024 Adult BMI Screening Adult BMI Screening [facility] Start: 06-11-2024 Tobacco Screening Tobacco Screening [facility] Start: 05-16-2024 Adult BMI Screening Adult BMI Screening [facility] Start: 05-16-2024 Tobacco Screening Tobacco Screening [facility] Start: 05-08-2024 Adult BMI Screening Adult BMI Screening [facility] Start: 05-08-2024 Tobacco Screening Tobacco Screening [facility] Start: 04-14-2024 Adult BMI Screening Adult BMI Screening [facility] Start: 04-14-2024 Tobacco Screening Tobacco Screening [facility] Start: 02-26-2024 End: 04-27-2025 MG Breast - bilateral Diagnostic Bilateral diagnostic mammogram Imaging Routine Breast pain Expected: 02/26/2024 (Approximate), Expires: 04/27/2025 [facility] Work Phone: Comment on above: Expected: 02/26/2024 (Approximate), Expi res: 04/27/2025 Start: 02-26-2024 End: 02-26-2024 Patient encounter procedure 02/26/2024 10:00 AM EST Office Visit [facility] [address] [place] [address] Sanjeev Lopez DO [address] [place] [address] Arrived [facility] Comment on above: Arrived Start: 01-25-2024 End: 01-25-2024 Admission to same day surgery center 01/25/2024 10:00 AM EDT - 01/25/2024 1:59 PM EDT Surgery [facility] - Surgery [address] [place] [phone] [facility], [facility], [address] [place] [id number] PANNICULECTOMY [facility] - Surgery Comment on above: PANNICULECTOMY Start: 01-25-2024 End: 01-25-2024 PANNICULECTOMY PANNICULECTOMY Panniculitis affecting regions of neck and back, site unspecified 01/25/2024 10:00 AM EDT [facility] Start: 01-25-2024 Subsequent hospital visit by physician 01/25/2024 10:00 AM EDT Hospital Encounter [facility] Surgery [address] [place] [phone] [facility], [address] [facility], [address] [place] [id number] [facility] - Surgery Start: 01-03-2024 End: 01-03-2024 Patient encounter procedure [facility] Comment on above: Arrived Start: 12-22-2023 End: 12-22-2023 Patient encounter procedure 12/22/2023 10:00 AM EDT Procedure Visit [facility] Sanjeev Lopez, [address] [place] [address] [facility] Start: 12-06-2023 End: 12-05-2024 [...] Visit [facility] [address] [place] [phone] Sanjeev Lopez, [place] [facility] [place] [address] [facility] Start: 12-03-2023 Influenza vaccination Influenza Vaccine [facility] Start: 11-29-2023 End: 11-28-2024 DHEA-sulfate DHEA-sulfate Lab Routine Decreased libido Expected: 11/29/2023 (Approximate), Expires: 11/28/2024 [facility] Comment on above: Expected: 11/29/2023 (Approximate), Expi res: 11/28/2024 Start: 11-29-2023 End: 11-29-2023 Patient encounter procedure 11/29/2023 1:50 PM EDT Office Visit [facility] [place] [phone] Sanjeev Lopez, [address] [place] [address] Arrived [facility] Comment on above: Arrived Start: 07-19-2023 End: 07-19-2023 Patient encounter procedure 07/19/2023 1:45 PM EDT Office Visit [facility] [address] [facility] [[email or web address] [address] [place] [address] Vishal Martin, [address] [facility] [[email or web address]] [address] [place] [address] [facility] Start: 07-17-2023 End: 07-17-2023 Patient encounter procedure 07/17/2023 10:00 AM EDT Office Visit [facility] [address] [place] [phone] Sanjeev Lopez, [place] [facility] [place] [address] [facility] Start: 06-12-2023 End: 06-12-2023 Patient encounter procedure 06/12/2023 10:05 AM EDT Office Visit [facility] [address] [place] [address] Rohit Smith MD [address] [place] [address] [facility] Start: 05-19-2023 End: 05-19-2023 Patient encounter procedure 05/19/2023 10:15 AM EST Appointment [facility] - MRI Imaging [address] [place] [phone] [facility] Start: 05-16-2023 End: 05-16-2023 Patient encounter procedure 05/16/2023 1:45 PM EST Office Visit [facility] [address] [email or web address] [address] [place] [address] Rohit Smith MD [address] [place] [address] [facility] [...] Care [address] [place] [address] Jennie Colon, SEARCH ENGINE MARKETING SPECIALIST-LAYDOWN MACHINE OPERATOR [address] [facility] [address] [place] [address] [facility] Start: 04-14-2023 End: 04-14-2024 XR Lumbar spine Views W flexion and W extension X-ray spine lumbar ap, lateral, flexion and extension only Imaging Routine Back pain, unspecified back location, unspecified back pain laterality, unspecified chronicity Expected: 04/14/2023, Expires: 04/14/2024 [facility] Work Phone: Comment on above: Expected: 04/14/2023, Expires: Start: 12-02-2022 Influenza vaccination Influenza Vaccine [facility] Start: 12-01-2022 Depression Screening Depression Screening [facility] Start: 11-01-2022 Influenza vaccination Flu vaccine (#1) [facility] Start: 09-03-2022 Adult BMI Follow Up Plan Adult BMI Follow Up Plan [facility] Start: 12-02-2021 Influenza vaccination Flu vaccine (Season Ended) [facility] Start: 11-01-2021 Influenza vaccination Flu vaccine (#1) [facility] Start: 2017 Diabetes screen Diabetes screen [facility] Start: 2012 Screening for malignant neoplasm of cervix [facility] Start: 12-01-2003 Screening for malignant neoplasm of cervix Pap smear [facility] Start: 2001 DTaP,Tdap and Td Vaccines (1 - Tdap) DTaP,Tdap and Td Vaccines (1 - Tdap) [facility] Start: 2001 DTaP/Tdap/Td vaccine (1 - Tdap) DTaP/Tdap/Td vaccine (1 - Tdap) [facility] Start: 2000 Adult BMI Follow Up Plan Adult BMI Follow Up Plan [facility] Start: 2000 Hepatitis C screening Hepatitis C screen [facility] Start: 1994 Depression Screen Depression Screen [facility] Start: 1994 Depression Screening Depression Screening [facility] Start: 12-01-1987 COVID-19 Vaccine (1) COVID-19 Vaccine (1) [facility] Start: 12-01-1983 Varicella vaccine (1 of 2 - 2-dose childhood series) Varicella vaccine (1 of 2 - 2-dose childhood series) [facility] Start: 06-01-1983 COVID-19 Vaccine (#1) COVID-19 Vaccine (#1) [facility] Endometrial biopsy Endometrial b iopsy Procedures Routine Menorrhagia with regular cycle Abnormal uterine bleeding (AUB) Pelvic pain Ordered: 12/06/2023 [facility] Work Phone: Comment on above: Ordered: 12/06/2023 Estradiol Estradiol Lab Ro utine Hormone disorder Ordered: 12/06/2023 [facility] Comment on above: Ordered: 12/06/2023 Estrone Estrone Lab Rout ine Hormone disorder Ordered: 12/06/2023 [facility] Comment on above: Ordered: 12/06/2023 Ferritin [Mass/volum e] in Serum or Plasma Ferritin Lab Routine Hormone disorder Ordered: 12/06/2023 [facility] Comment on above: Ordered: 12/06/2023 Hemoglobin A1c/Hemoglobin.total in Blood Hemoglobin A1c Lab Routine Hormone disorder Ordered: 12/06/2023 [facility] Comment on above: Ordered: 12/06/2023 Progesterone Progesterone Lab Routine Hormone disorder Ordered: 12/06/2023 [facility] Comment on above: Ordered: 12/06/2023 Sex hormone binding globulin Sex hormone binding globulin Lab Routine Decreased libido Ordered: 11/29/2023 [facility] Comment on above: Ordered: 11/29/2023 T3, reverse T3, reverse Lab Routine Hormone disorder Ordered: 12/06/2023 [facility] Comment on above: Ordered: 12/06/2023 TESTOSTERONE, FREE TESTOSTERONE, FREE Lab Routine Decreased libido Ordered: 11/29/2023 [facility] Work Phone: Comment on above: Ordered: 11/29/2023 Testosterone, free, total Testos terone, free, total Lab Routine Decreased libido Ordered: 11/29/2023 [facility] Comment on above: Ordered: 11/29/2023 Testosterone, free, total Testos terone, free, total Lab Routine Hormone disorder Ordered: 12/06/2023 [facility] Comment on above: Ordered: 12/06/2023 THIN PREP TIS PAP AN D HR HPV DNA THIN PREP TIS PAP AND HR HPV DNA Pathology and Cytology Routine Well woman exam with routine gynecological exam Ordered: 07/22/2024 [facility] Work Phone: Comment on above: Ordered: 07/22/2024 Thyroid peroxidase antibody Thyroid peroxidase antibody Lab Routine Hormone disorder Ordered: 12/06/2023 [facility] Comment on above: Ordered: 12/06/2023 Thyroxine (T4) free [Mass/volume] in Serum or Plasma T4, free Lab Routine Hormone disorder Ordered: 12/06/2023 [facility] Comment on above: Ordered: 12/06/2023 Triiodothyronine (T3 ) Free [Mass/volume] in Serum or Plasma T3, free Lab Routine Hormone disorder Ordered: 12/06/2023 [facility] Comment on above: Ordered: 12/06/2023 Vitamin D 1,25 dihydroxy Vitamin D 1,25 dihydroxy Lab Routine Hormone disorder Ordered: 12/06/2023 [facility] Comment on above: Ordered: 12/06/2023 Vitamin D 1,25 dihydroxy Vitamin D 1,25 dihydroxy Lab Routine Vitamin D insufficiency Ordered: 07/16/2024 [facility] [employer] Work Phone: Comment on above: Ordered: 07/16/2024 [facility] Payers Date Payer Category Payer Unknown [id number] 2023 Self-pay 2022 Blue Cross Blue Shield [id number] 2022 Blue Cross Blue Shie Managed Care - PPO [id number] 2022 Unknown [id number]. 1.13.693.2.7.3.6786 71.315 2022 Unknown [id number] 2020 Unknown [id number] 1.2.840.925279.1.13.239.2.7.3.6786 71.315 1982 Unknown [id number] 2.840.1.349036.3.579.2.593 1982 Unknown [id number] 2840.1.214275.3.579.2.593 1982 Unknown [id number] 2.840.1.733698.3.579.2.175 1982 Unknown [id number] 2.840.1.043880.3.579.2.175 1982 Unknown [id number] 840.1.802452.3.579.2.175 1982 Unknown [id number] .1.835465.3.579.2.1285 1982 Unknown [id number] 05.19.830.1.582955.3.579.2.1285 1982 Unknown [id number] 05.19.830.1.791213.3.579.2.1285 1982 Unknown [id number] .1.021554.3.579.2.1285 1982 Unknown [id number] .1.362438.3.579.2.1285 1982 Unknown [id number] .1.496910.3.579.2.1285 1982 Unknown [id number] 840.1.610253.3.579.2.1285 1982 Unknown [id number] 840.1.537319.3.579.2. 1982 Unknown [id number] 840.1.790888.3.579.2. 1982 Unknown [id number] 840.1.558226.3.579.2. 1982 Unknown [id number] 840.1.357661.3.579.2.1285 1982 Unknown [id number] 05.19.830.1.038786.3.579.2.1285 1982 Unknown [id number] 05.19.830.1.991412.3.579.2.1285 1982 Unknown [id number] 05.19.830.1.400729.3.579.2.1285 1982 Unknown [id number] 05.19.830.1.030276.3.579.2.1285 1982 Unknown [id number] 05.19.830.1.318145.3.579.2.1285 1982 Unknown [id number] .1.597943.3.579.2.1285 1982 Unknown [id number] .1.131081.3.579.2.1285 1982 Unknown [id number] .1.348917.3.579.2.1285 1982 Unknown [id number] .1.398433.3.579.2.1285 1982 Unknown [id number] .1.187351.3.579.2.1285 1982 Unknown [id number] .1.356714.3.579.2.1285 1982 Unknown [id number] .1.346512.3.579.2.1285 1982 Unknown [id number] .1.564274.3.579.2.1258 1982 Unknown [id number] 05.19.830.1.170651.3.579.2.1258 1982 Unknown [id number] 05.19.830.1.833634.3.579.2.1258 1982 Unknown [id number] 05.19.830.1.706577.3.579.2.9 1982 Unknown [id number] 2.16840.1.536078.3.579.2.1258 1982 Unknown [id number] 2.16840.1.610096.3.579.2.1258 1982 Unknown [id number] 2.16840.1.501134.3.579.2.1258 1982 Unknown [id number] 2.16840.1.694556.3.579.2.1258 1982 Unknown [id number] 2.840.1.554585.3.579.2.1258 1982 Unknown [id number] 2.840.1.924044.3.579.2.1258 1982 Unknown [id number] 2.840.1.852840.3.579.2.1258 1982 Unknown [id number] 2.840.1.279781.3.579.2.1258 1982 Unknown [id number] 2.840.1.777475.3.579.2.1258 1982 Unknown [id number] 2.840.1.100107.3.579.2.1258 1982 Unknown [id number] 2.840.1.609283.3.579.2.1258 1982 Unknown [id number] 2.840.1.506423.3.579.2.196 1959 Unknown [id number] Unknown [id number] 2840.1.582337.3.579.2.531 Social History Date Type Detail Facility Start: 06-15-2015 End: 03-31-2022 Tobacco smoking status TNIS Never smoked tobacco [facility] Start: 06-15-2015 End: 03-31-2022 Tobacco use and exposure Smokeless tobacco non-user [facility] Work Phone: Start: 08-19-2021 End: 10-21-2024 Alcohol intake Current non-drinker of alcohol (finding) [employer] Phone: Start: 05-14-2020 End: 08-19-2021 Alcohol intake [employer] Phone: Start: 06-15-2015 History SDOH Alcohol Comment rarely [facility] Phone: Start: 1980 [facility] Start: 08-09-2021 End: 01-03-2022 Exposure to SARS-CoV-2 (event) Not sure [employer] Phone: History of tobacco use Passive smoker [facility] [employer] Phone: Start: 05-14-2020 End: 05-04-2023 Sex Assigned At [employer] Other Start: 05-04-2023 End: 10-29-2024 Alcohol intake Ex-drinker (finding) [facility] Start: 10-09-2022 Alcohol Comment Alcohol: 1 or 2 drinks on typical day/monthly or less. Caffeine: 1-2 cups/day tea [facility] Start: 1980 Sex Assigned At Female [facility] Start: 09-21-2022 Gender identity Identifies as female gender (finding) [facility] Start: 09-21-2022 Sexual orientation Heterosexual (fin ding) [facility] Has the [employer], gas, oil, or water [employer] threatened to shut off services in your home in past 12Mo No [facility] Adolescent depressio n screening assessment 0 [facility] Start: 11-06-2014 End: 07-29-2024 Sex Female (finding) [facility] Tobacco smoking status NHIS Unknown if ever smoked [facility] Work Phone: NEGATED: Highlighted row [facility] Procedure Code Equipment Code Equipment Origin al Text Equipment Identifier Dates [id number], [id number], [id number] Start: 09-14-2023 End: 12-13-2023 Staple [id number] S tr Grt Wht Jaws Ntnl Bn Rpl [id number] - Sna - [id number] Start: 08-08-2024 Staple [id number] S tr Grt Wht Jaws Ntnl Bn Rpl [id number] - Sna - [id number] Start: 08-08-2024 Screw Bn 13mm 2m m Bite Mnstr [facility] Ns - Sna - [id number] Start: 08-08-2024 Screw Bn 10mm 2m m Hd Mn-Mnstr St Ns - [id number] Start: 08-08-2024 Goals Date Patient Goal Desired Activity /State Personal health goal Comment on above: Formatting of this n ote might be different from the original. Evaluation of progress towards goal: johns removal; pain management Clinical Notes 08-19-2021 to 10-29-2024 Georgi Carreon DPM - 10/29/2024 9:00 AM Carbera Carreon DPM - 09/17/2024 9:45 AM Cabrera [...] Morbid obesity with BMI of 45.0-49.9, adult [place] PCOS (polycystic ovarian syndrome) Pre-diabetes Rectal bleeding [...] each, Rfl: 3 Lancets (OneTouch Delica Plus [id number]) [facility] , Disp: , Rfl: losartan (Cozaar) 100 MG tablet, Take 100 mg by mouth Daily, Disp: , Rfl: metoprolol succinate XL (Toprol-XL) 50 MG 24 hr tablet, Take 50 mg by mouth 1 (one) time each day at the same time, Disp: , Rfl: MONOJECT 3CC SYRINGE 3 ML [facility], , Disp: , Rfl: Mounjaro 12.5 MG/0.5ML solution auto-injector, inject 0.5 milliliters UNDER THE SKIN ONCE WEEKLY, Disp: 2 mL, Rfl: 3 nystatin (Mycostatin) [id number] UNIT/GM powder, Apply topically 3 (three) times [...] Presents to clinic weight-bearing unassisted in [facility]. Accompanied by her . HENT: Head: [...] Georgi Carreon DPM documented in this encounter [facility] 09-17-2024 History of Present illness Narrative Images [...] Morbid obesity with BMI of 45.0-49.9, adult ([facility] PCOS (polycystic ovarian syndrome) Pre-diabetes Rectal bleeding Off and on since 2018 Weight gain Medications Current Outpatient Medications: Alcohol Swabs (B-D SINGLE USE SWABS REGULAR) pads, , Disp: , Rfl: amLODIPine (Norvasc) 10 MG tablet, Take 10 mg by mouth in the morning., Disp: , Rfl: Blood Glucose Monitoring Suppl (TripLingo Glucometer) w/Device kit, 1 kit Daily Use [...] each, Rfl: 3 Lancets (OneTouch Delica Plus [id number]) [facility] [place] , Disp: , Rfl: losartan (Cozaar) 100 MG tablet, Take 100 mg by mouth Daily, Disp: , Rfl: metoprolol succinate XL (Toprol-XL) 50 MG 24 hr tablet, Take 50 mg by mouth 1 (one) time each day at the same time, Disp: , Rfl: MONOJECT 3CC SYRINGE 3 ML [facility] [place] [place], , Disp: , Rfl: [...] boot. Referral sent to PT [facility] in [place]. I will follow up with her in [...] Georgi Carreon DPM documented in this encounter [facility] 09-04-2024 History of Present illness Narrative Images [...] Disp: , Rfl: Blood Glucose Monitoring Suppl (TripLingo Glucometer) w/Device kit, 1 kit Daily Use [...] each, Rfl: 3 Lancets (OneTouch Delica Plus [id number]) [facility] [place], , Disp: , Rfl: losartan (Cozaar) 100 MG tablet, Take 100 mg by mouth Daily, Disp: , Rfl: metoprolol succinate XL (Toprol-XL) 50 MG 24 hr tablet, Take 50 mg by mouth 1 (one) time each day at the same time, Disp: , Rfl: MONOJECT 3CC SYRINGE 3 ML [facility], , Disp: , Rfl: [...] Georgi Carreon DPM documented in this encounter [facility] 08-21-2024 History of Present illness Narrative \ [...] Disp: , Rfl: Blood Glucose Monitoring Suppl (TripLingo Glucometer) w/Device kit, 1 kit Daily Use [...] the morning., Disp: , Rfl: glucose blood (Tech urSelfTouch Verio) test strip, Use as instructed, Disp: 100 each, Rfl: 3 Lancets (Tech urSelfTouch Delica Plus [id number]) misc, , Disp: , Rfl: losartan (Cozaar) [...] Georgi Carreon DPM documented in this encounter [facility] 08-05-2024 Note [place] [facility] Subjective Karuna Dumont is a 43 y.o. year old female being seen for follow up medication changes and renal artery duplex. Echo is scheduled for tomorrow at [facility] in [place]. She needs cleared for foot surgery scheduled for at [facility] also. BP has been much better she [...] Outpatient Medications: amLODIPin (more content not included)... [facility] 07-31-2024 Instructions Mary Ellen Castellon RN - 07/31/2024 2:15 PM EDT Preoperative Education Checklist- General Surgery date: 08/08/24 Surgery time: 0730 a.m. Arrival time: 0610 a.m. 1. Bring a photo ID and your insurance card with you the day of surgery. You will check in at the main lobby of the [facility]- registration desk is straight ahead as soon as you walk in. Tell them you are here for surgery. 2. If you have a Living Will/Durable Power of Sccm Administrator for Health Care that is not on [...] after you have bathed. 5. NO nail nicaraguan/acrylic on at least one finger. If you are having a hand, wrist or foot surgery then all nail nicaraguan and artificial/acrylic nails must be removed from [...] please call the Preadmission Testing office at [phone], Mon.-Fri. 7 a.m.-3 p.m. Leave a voicemail [...] with your doctor. documented in this encounter [facility] 07-31-2024 Miscellaneous Notes Preoperative Education Checklist- General Surgery date: 08/08/24 Surgery time: 0730 a.m. Arrival time: 0610 a.m. 1. Bring a photo ID and your insurance card with you the day of surgery. You will check in at the main lobby of the [facility]- registration desk is straight ahead as soon as you walk in. Tell them you are here for surgery. 2. If you have a Living Will/Durable Power of Sccm Administrator for Health Care that is not on [...] after you have bathed. 5. NO nail nicaraguan/acrylic on at least one finger. If you are having a hand, wrist or foot surgery then all nail nicaraguan and artificial/acrylic nails must be removed from [...] please call the Preadmission Testing office at [phone], Mon.-Fri. 7 a.m.-3 p.m. Leave a voicemail [...] her ECHO completed. documented in this encounter [facility] [facility] Nurse Note Preoperative Education Checklist- General Surgery date: 08/08/24 Surgery time: 0730 a.m. Arrival time: 0610 a.m. 1. Bring a photo ID and your insurance card with you the day of surgery. You will check in at the main lobby of the [facility]- registration desk is straight ahead as soon as you walk in. Tell them you are here for surgery. 2. If you have a Living Will/Durable Power of Sccm Administrator for Health Care that is not on [...] after you have bathed. 5. NO nail nicaraguan/acrylic on at least one finger. If you are having a hand, wrist or foot surgery then all nail nicaraguan and artificial/acrylic nails must be removed from [...] please call the Preadmission Testing office at [phone], Mon.-Fri. 7 a.m.-3 p.m. Leave a voicemail [...] to the follow-up appointment with your doctor. [facility] 07-31-2024 Nurse Note Hibiclens and surgical instructions reviewed. Patient verbalized understanding. [facility] 07-31-20[address] Nurse [address]ette [address] Dr Carreon's office notified of need for cardiac clearance once patient has her ECHO completed. T [facility] 07-31-2024 History of Present illness Narrative [...] each, Rfl: 3 Lancets (OneTouch Delica Plus [id number]) [facility] [place]p: , Rfl: [...] Georgi Carreon DPM documented in this encounter [facility] 07-22-2024 History of Present illness Narrative Reason [...] (LEXAPRO) 10 mg, Daily RT glucose blood (Tech urSelfTouch Verio) test strip Use as instructed Lancets (Tech urSelfTouch Delica Plus [id number]) misc losartan (COZAAR) 100 mg, Daily metoprolol [...] Morbid obesity with BMI of 45.0-49.9, adult ([facility]) PCOS (polycystic ovarian syndrome) Pre-diabetes Rectal [...] nursing note reviewed. Exam conducted with a tablet machine operator present. Vitals: Estimated body mass index [...] Sanjeev Lopez DO documented in this encounter [facility] 07-16-2024 History of Present illness Narrative Images [...] Morbid obesity with BMI of 45.0-49.9, adult ([facility]) PCOS (polycystic ovarian syndrome) Pre-diabetes Rectal [...] each, Rfl: 3 Lancets (OneTouch Delica Plus [id number]) [facility] [place] , Disp: , Rfl: [...] Georgi Carreon DPM documented in this encounter [facility] 07-03-2024 Note [place] [facility] - [facility] Subjective Karuna Dumont is a [...] Swelling and Unknown Medications Current Outpatient Medications: ehaimroftf-ccqmucjrarfhy-ftjz (Fioricet) 50-300-40 mg capsule, Take 50 capsules [...] (one) time per week., Disp: , Rfl: hlafrfbiercr-oyw-obvu-FA-vit K 18 mg iron-400 mcg-25 mcg tablet, Take by mouth., Disp: , Rfl: ondansetron ODT (Zofran-ODT) 4 mg disintegrating tablet, Take 4 mg by mouth every 8 (eight) (more content not included)... [facility] 06-28-2024 Note Education Materials Neurology Migraine Headache [...] these instructions at home: Medicines ? Take xife-bxw-pbbgzpx and prescription medicines only as told by your provider. ? Ask your provider if the medicine prescribed to you: ? Requires you to avoid driving or using machinery. ? Can cause constipation. You may need to take these actions to prevent or treat constipation: ? Drink enough fluid to keep your pee (urine) pale yellow. ? Take rsou-fot-dthtnkt or prescription medicines. ? Eat foods that [...] treatment. Where to find more information ? [facility] (more content not included)... [facility] 05-17-2024 Evaluation note Diagnosis Onset Date Resolution Adult ADHD acute May 17, 2024 10:57am Benign essential HTN acute Febr 2024 10:57am [facility] Work Phone: 1(924) 382-765001-09-2025 Evaluation note* Diagnosis Onset Date Resolution Status Admit Date Adult ADHD acute April 11 9:46am Benign essential HTN acute 2024 9:46am Wellness examination acute 2024 9:46am [facility] Work Phone: 1(457) 241-671012-20-2024 History of Present illness Narrative* Caitlyn Logan RN - 03/22/2024 1:[address] [facility] received referral for BRCA testing. Referral faxed to genetics. documented in this encounterKindred HealthcareDonde [facility] [id number] History of Present illness Narrative* Monique Cantrell [...] mg, Daily RT Blood Glucose Monitoring Suppl ([employer] Glucometer) w/Device kit 1 kit, Does not apply, Daily, Use four times daily to check FSBS. In the morning prior to breakfast & 1 hour after each meal for a total of 4times daily. Lancets (Tech urSelfTouch Delica Plus [id number]) misc MONOJECT 3CC SYRINGE 3 ML misc Mounjaro 10 MG/0.5ML solution auto-injector INJECT 0.5 MLS SUBCUTANEOUSLY ONCE WEEKLY Tech urSelfTouch Verio test strip Qelbree 200 mg, Nightly [...] Name Age of Onset Hypertension Maternal Grandfather Bob White Heart disease Maternal Grandfather Bob White Stroke Maternal Grandfather Bob White Cancer Maternal Grandfather Bob White Drug abuse Maternal Grandfather Bob White Drug abuse Father Tyrese Diabetes Paternal Grandfather [...] nursing note reviewed. Exam conducted with a tablet machine operator present. Vitals: Estimated body mass index [...] of: Sanjeev Lopez DO documented in this encounterMissouri Baptist Medical [id number] History of Present illness Narrative* Alfonso Liang MD - 01/26/2024 5:57 PM EDT 01/26/2024 6:12 PM Opened this encounter to order Overbrook but talked to patient's pharmacy that it was an insurance issue and they are going to fulfill the prescription now. No new orders were placed. Dr. Price made aware. ALFONSO LIANG MD PGY4 Gen Surg [employer] documented in [facility] NoteEducation Materials Neurology Migraine Headache A [...] these instructions at home: Medicines ? Take ozyv-izx-gfitchm and prescription medicines only as told by [...] Headache and Migraine Patients (CHAMP): [email or web address].org ? [place] Migraine Foundation: [email or web address].org ? National Headache Foundation: [...] your health care p (more content not included)...Parkview [id number] History of Present illness Narrative* Tatum Atkinson [...] TAKE 1 TABLET BY MOUTH PREOP Lancets (Tech urSelfTouch Delica Plus Knqhon55Y) misc MONOJECT 3CC SYRINGE 3 ML misc nystatin (Mycostatin) cream Topical, 2 times daily, Dispense cream that does NOT have perfumes added. 24x7 [employer] Verio test strip Qelbree 200 mg, Oral, [...] disease Maternal Grandfather Neri Stroke Maternal Grandfather Bob White Cancer Maternal Grandfather Bob White Drug abuse Maternal Grandfather Bob White Drug abuse Father Tyrese Diabetes Paternal Grandfather [...] nursing note reviewed. Exam conducted with a tablet machine operator present. Vitals: Estimated body mass index [...] of: Sanjeev Lopez DO documented in this encounterMissouri Baptist Medical [id number] History of Present illness Narrative* Tracie Cunningham - 12/06/2023 11:30 AM EDT Reason for Appointment: Patient ID: Cindy Dumont is a 43 y.o. female who presents for Endometrial Biopsy and Pre-op Visit Patient presents today for Pre Op/Endometrial Biopsy appointment. Patient is scheduled to undergo Endometrial Ablation with Mariel on 12/22/[address] Lopez at [facility]. MEDICATIONS Current Outpatient Medications Medication Instructions Alcohol Swabs (Alcohol Prep Pad) 70 % pads 1 Pad, Topical, 2 times daily, Use twice daily to check FSBS. Blood Glucose Monitoring Suppl (T[employer] Glucometer) w/Device kit 1 kit, Does not [...] Name Age of Onset Hypertension Maternal Grandfather Bob White Heart disease Maternal Grandfather Bob White Stroke Maternal Grandfather Bob White Cancer Maternal Grandfather Bob White Drug abuse Maternal Grandfather Bob White Drug abuse Father Tyrese Diabetes Paternal Grandfather [...] nursing note reviewed. Exam conducted with a tablet machine operator present. Vitals: Estimated body mass index [...] reviewed, and patient is to proceed to [facility] OR. Follow Up: Patient is to follow up between 1-2 weeks post op to assess proper healing and recovery from procedure. Documented by Monique Cantrell LPN on behalf of: Sanjeev Lopez DO documented in this encounterMissouri Baptist Medical [id number] History of Present illness Narrative* Monique Cantrell [...] to check FSBS. Blood Glucose Monitoring Suppl (TripLingo Glucometer) w/Device kit 1 kit, Does not [...] Morbid obesity with BMI of 45.0-49.9, adult ([facility]) PCOS (polycystic ovarian syndrome) Pre-diabetes Rectal bleeding Off and on since 2018 HISTORY PAST MEDICAL HISTORY SOCIAL HISTORY Past Medical History: Diagnosis Date Encounter for gynecological examination (general) (routine) without abnormal findings Fibrocystic breast 05/2022 Frequent headaches Labial cyst Menorrhagia Migraine (CMS/HCC) Chronic Morbid obesity with BMI of 45.0-49.9, adult ([facility]) PCOS (polycystic ovarian syndrome) Pre-diabetes Rectal [...] disease Maternal Grandfather Neri Stroke Maternal Grandfather Bob White Cancer Maternal Grandfather Bob White Drug abuse Maternal Grandfather Bob White Drug abuse Father Tyrese Diabetes Paternal Grandfather [...] nursing note reviewed. Exam conducted with a tablet machine operator present. Vitals: Estimated body mass index [...] of: Sanjeev Lopez DO documented in this encounterMissouri Baptist Medical [id number] NotePatient Education Materials Follows: Hypertension, Adult High [...] of wine (148 mL (more content not included)...Parkview [id number] History of Present illness Narrative* Rohit Metzger [...] take another few months to subside. Recommended tspa-agf-urrncao pain relievers as needed. She is content [...] has any severe symptoms. [facility] in [facility]Tr[facility] History of Present illness Narrative* Rohit Metzger MD - 05/16/2023 1:45 PM EST [facility] Chief Complaint: [...] a snap. She initially followed up with [facility] and was diagnosed with right [...] External notes reviewed: I reviewed notes from [facility] orthopaedics. Review of test/study reports: I reviewed an x-ray obtained of the right ring finger. There were no acute osseous abnormality suchas fracture dislocation. My personal interpretation of tests: I personally viewed and interpreted X-rays from [facility] as above. Xrays done in office today: None. Assessment: 1. Mallet deformity of right ring finger - [facility] - [place], [place] 2. Finger injury, right, initial encounter - [facility] - [place], [place] Plan: I discussed treatment options with [...] progress with her flexion. documented in this encounterNorth Country HospitalAl[facility] [id number] Evaluation note* Encounter Date Diagnosis Assessment Notes Treatment Notes Treatment Clinical Notes May, Adult ADHD (attentio n deficit hyperactivity disorder) (ICD-10 - F90.9) [employer] Other 02-05-2024 History of Present illness Narrative* CAIT Schultz - 05/08/2023 1:30 PM EST Images from the original note were not included. [facility] [address] [place] [phone] * CHART NOTE ? 05/08/2023 Patient: Karuna Dumont 1980 [id number] Provider: Jennie Colon CNP CHIEF COMPLAINT Low [...] Current and prior treatments: -Physical therapy/HEP: denies -healthcare administration internship: denies -Pain management: denies -Prior neurosurgical surgeries: [...] 12/08/2016 Performed by Dannie Patel MD at [facility] OR SECTION 2018 CHOLECYSTECTOMY BEHAVORIAL SCREENING [...] Right achilles: 2+ Left achilles: 2+ Right machinist first class: 2+ Left machinist first class: 2+ Right Andujar: absent Left Andujar: absent [...] record of the patient encounter. Inadvertent computerized route specialist errors related to syntax, spelling, homophones, and/or inaudibility may be present. Thank you for your referral. CAIT Perla CNP 05/08/23 1440 documented in this encounterTrumbull [facility] Hospital02-[facility]-2024 History of Present illness Narrative* Everett [...] finger for about 2 weeks. Went to [facility] due to having numbness in finger and unable to straighten it. Had XR at . On 03/13, pt went to [facility] and had another XR. Unable to get into hand specialist at [facility] until May 16. Continues to have soreness [...] crooked. PT is RT handed Prior [place]: [facility] 03/09/23, XR, Splint, [facility], XR 03/13/23, Ice, Heat, IBU, Arnica ALLERGIES: No Known Allergies HOME MEDICATIONS: Current Outpatient Medications Medication Instructions amphetamine-dextroamphetamine (Adderall) 20 MG tablet 1 TABLET ORALLY MID DAY 30 DAYS cyclobenzaprine (Flexeril) 10 MG tablet PLEASE SEE ATTACHED FOR DETAILED DIRECTIONS fluconazole (DIFLUCAN) 100 mg, Oral, Daily nystatin (Mycostatin) 362208 UNIT/GM powder APPLY TO AFFECTED AREA TOPICALLY [...] normal Pronation: normal Supination: normal Muscle Strength Program Specialist: 3/5 Other Erythema: absent Pulse: present Comments: [...] urgent evaluation. Everett CHAVIRA documented in this encounterMissouri Baptist Medical [id number] Evaluation note* Encounter Date Diagnosis Assessment Notes Treatment Notes Treatment Clinical Notes Apr, Adult ADHD (attentio n deficit hyperactivity disorder) (ICD-10 - F90.9) [employer] Other 01-12-2024 History of Present illness Narrative* [...] not had any complication. She is using oqim-nij-fzvgzjc pain patches. She denies any recent change [...] 12/08/2016 Performed by Dannie Patel MD at [facility] OR SECTION 2018 CHOLECYSTECTOMY Social History [...] per her request. I have evaluated her [place] state reporting risk OARRS report overdose risk [...] follow-up. OAARS report reviewed via OARRS/MAPS in [facility]. Discussed with the patient/caregiversafe and effective use [...] you individually. If you have been recommended cxbg-bwi-lzknxeb medications please use those medications as indicated [...] or approved for treating a specific patient. [employer] and its affiliatesdisclaim any warranty or liability relating to this information or the use thereof. The use of thisinformation is governed by the Terms of Use, available at https://www.[employer]/en/know/xwyltnil-ivzygdejtgxae-tyton Copyright Copyright 2022 [employer] and its affiliates and/or licensors. All rights reserved. OVER THE COUNTER PAIN CONTROL GUIDELINES To help control your pain a combination of zfgj-izf-zftmoyg (OTC) pain medications can be used successfully [...] ulcers Do NOT take Tylenol along with Overbrook or Percocet (they already have Tylenol) Do [...] CAIT Song 04/14/23 1207 documented in this encounterTrumbull [facility] Hospital01-12-2024 Instructions* Patient Instructions* CAIT Song - [...] you individually. If you have been recommended wpqr-pdt-xhfvzir medications please use those medications as indicated [...] or approved for treating a specific patient. [employer] and its affiliatesdisclaim any warranty or liability relating to this information or the use thereof. The use of thisinformation is governed by the Terms of Use, available at https://www.[employer]Republic.[employer]/en/know/yjiqktim-gfcumrggvydba-qufdy Copyright Copyright 2022 [employer] and its affiliates and/or licensors. All rights reserved. OVER THE COUNTER PAIN CONTROL GUIDELINES To help control your pain a combination of gnxi-kvz-sjleojx (OTC) pain medications can be used successfully [...] ulcers Do NOT take Tylenol along with Overbrook or Percocet (they already have Tylenol) Do NOT drink Alcohol while taking Tylenol If you have any questions please talk to your doctor or a pharmacist documented in this encounterTrumbull [facility]01-10-2024 Evaluation note* Encounter Date Diagnosis Assessment Notes Treatment Notes Treatment Clinical Notes Apr, Adult ADHD (attentio n deficit hyperactivity disorder) (ICD-10 - F90.9) [employer] Other 01-09-2024 Evaluation note* Encounter Date Diagnosis Assessment Notes Treatment Notes Treatment Clinical Notes Apr, Adult ADHD (attentio n deficit hyperactivity disorder) (ICD-10 - F90.9) [employer] Other 01-08-2024 Evaluation note* Encounter Date Diagnosis Assessment Notes Treatment Notes Treatment Clinical Notes Apr, Adult ADHD (attentio n deficit hyperactivity disorder) (ICD-10 - F90.9) [employer] Other 10-30-2023 Evaluation note* Encounter Date Diagnosis Assessment Notes Treatment Notes Treatment Clinical Notes Jan, Adult ADHD (attentio n deficit hyperactivity disorder) (ICD-10 - F90.9) [employer] Other 10-02-2023 Evaluation note* Encounter Date Diagnosis [...] in 3 months or sooner if needed. [employer] Other 09-08-2023 Evaluation note* Encounter Date Diagnosis Assessment Notes Treatment Notes Treatment Clinical Notes Dec, Adult ADHD (attentio n deficit hyperactivity disorder) (ICD-10 - F90.9) [employer] Other 09-07-2023 Evaluation note* Encounter Date Diagnosis Assessment Notes Treatment Notes Treatment Clinical Notes Dec, Adult ADHD (attentio n deficit hyperactivity disorder) (ICD-10 - F90.9) [employer] Other 08-30-2023 Evaluation note* Encounter Date Diagnosis [...] Cutaneous candidiasis (ICD-10 - B37.2) Refilled diflucan. [employer] Other 07-11-2023 Hospital Discharge instructions* Discharge Instructions* RIZWAN Dietz CNP - 10/11/2022 8:08 PM EDT Please call and schedule a follow-up appointment with [facility]. Use an ice pack or [...] through Care Everywhere. * RICE: General Info (East Timorese) * Ankle Sprain ([place]orese) documented in [facility] encounterB[facility] Discharge instructions* Instructions* Radha Sanders MD - 08/19/2021 May use ice or heat, whichever feels better. May use Overbrook for pain. Prednisone as directed. Follow-up with [...] follow up appointment THANK YOU!!! From [facility] and [facility] On behalf of the Emergency Department staff at [facility], I would like to thank you for giving us the opportunity to address your health care needs and concerns. We hope that during your visit, our service was delivered in a professional and caring manner. Please keep [facility] in mind as we walk with [...] how we did during your visit at [email or web address] and let us know about your experience * Attachments The following attachments cannot be sent through Care Everywhere. * Herniated Disc ([place]orese) documented in this [facility] Work Phone: evaluation note* Diagnosis Herniated lumbar intervertebral disc- Primary Displacement of lumbar intervertebral disc without myelopathy documented in this encounter [employer] Work Phone: evaluation note* Diagnosis Gastroenteritis- Primary Other and unspecified noninfectious gastroenteritis and colitis documented in this encounter [employer] Work Phone: evalbeqleh note* Diagnosis Sprain of right ankle, unspecified ligament, initial encounter- Primary documented in this encounter [facility] noteNo InformationNort [employer] Other Evaluation note* Diagnosis 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 Pain in finger of right hand Pain in soft tissues of limb documented in this encounter [facility] HealthcareEvaluation noteNo assessment information availableWood County Hospital Work Phone: Evaluation note* Diagnosis Postop check Follow-up examination, following unspecified surgery Low ferritin level Other nonspecific findings on examination of blood documented in this encounter [facility] HealthcareEvaluation note* Diagnosis Breast pain Mastodynia documented in this encounter [facility] HealthcareEvaluation note* Diagnosis Encounter to discuss procedure Menorrhagia with regular cycle Decreased libido documented in this encounter [facility] [employer] note* Diagnosis Pre-op examination Menorrhagia with regular cycle Abnormal uterine bleeding (AUB) Pelvic pain Hormone disorder Unspecified endocrine disorder documented in this encounter [facility] HealthcareEvaluation note* Diagnosis Onset Date Resolution Status Admit Date Adult ADHD acute April 11 9:46am Wellness examination acute 2024 9:46am [facility] Work Phone: Evaluation note* Diagnosis Back pain, unspecified back location, unspecified back pain laterality, unspecified chronicity- Primary documented in this encounter [facility]* Diagnosis Acute left-sided low back pain with left-sided sciatica- Primary documented [facility]* Diagnosis Lumbar radiculopathy, chronic- Primary Urinary incontinence without sensory awareness Incontinence without sensory awareness Sensory deficit, left Spinal stenosis of lumbar region with neurogenic claudication documented in this encounter [facility]* Diagnosis Herniated lumbar intervertebral disc- Primary Displacement of lumbar intervertebral disc without myelopathy documented in [facility]* Diagnosis 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 Finger injury, right, initial encounter documented in this encounter [facility]* Diagnosis Herniated lumbar intervertebral disc- Primary Displacement of lumbar intervertebral disc without myelopathy Lumbar radiculopathy, chronic documented in this encounter [facility]* Diagnosis 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 documented in this encounter [facility]* Diagnosis Lumbar radiculopathy, chronic- Primary Herniated lumbar intervertebral disc Displacement of lumbar intervertebral disc without myelopathy documented in this encounter [facility]* Diagnosis Hallux valgus of left foot- Primary Instability of left foot joint Tailor's bunion of left foot Acquired deformity of left toe 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 Equinus contracture of left ankle Left foot pain Pain in soft tissues of limb Vitamin D insufficiency documented in this encounter [facility] HealthcareEvaluation note* Diagnosis Well woman exam with routine gynecological exam Routine gynecological examination Breast cancer screening by mammogram documented in this encounter [facility] Healthcare[facility] note* Diagnosis Hallux valgus of left foot- Primary Instability of left foot joint Tailor's bunion of left foot Acquired deformity of left toe 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 Equinus contracture of left ankle documented in this encounter [facility] note* Diagnosis Preop examination- Primary Unspecified pre-operative examination Hypertension, unspecified type documented in this encounter [facility]* Diagnosis S/P foot surgery- Primary Other postprocedural status Left foot pain Pain in soft tissues of limb Difficulty walking Difficulty in walking Instability of left ankle joint documented in this encounter [facility]* Diagnosis S/P foot surgery- Primary Other postprocedural status Left foot pain Pain in soft tissues of limb documented in this encounter [facility]* Diagnosis S/P foot surgery- Primary Other postprocedural status Left foot pain Pain in soft tissues of limb documented in this encounter [facility]* Diagnosis S/P foot surgery- Primary [...] Surgical History Hospitalization History see surgical hx [employer] Other Hospital Discharge instructions* Attachments The following attachments cannot be sent through Care Everywhere. * Gastroenteritis ([place]) [facility] Work Phone: InstructionsNot on filedocumented in this encounter [facility] SystemInstructionsNot on filedocumented in this encounter [facility] SystemInstructions* Attachments The following attachments cannot be sent through Care Everywhere. * Radiculopathy ([place]) * Spinal stenosis ([place]) documented in [place] SystemInstructionsNot on file documented in this encounterProCent[place] SystemInstructionsNot on file documented in [facility] SystemInstructionsNot on file documented in [facility] SystemInstructions* Pre-Procedure Instructions - Bessie Boswell RN - 01/18/2024 3:45 PM EDT Your surgery/procedure is scheduled at [facility] on 01/25/24 at 10 am Arrival Time 8 am [facility] Address: [address] [place] [address], [address] [place] [address] in the Emergency Center Parking lot. Report to the front desk auxiliary in the Emergency/Surgery Registration lobby of the hospital. Notify your SURGEON if you develop any illness such as a cold, cough, fever, sore throat, vomiting or are hospitalized between now and your surgery. Please call Pre-Admission Clinic at [phone] if you have any questions prior to surgery. For questions the morning of surgery, call the Pre-op Department at [phone]. Medication Instructions (Do not stop your medications [...] would like to schedule therapy at a [facility] facility, please call [phone] ([phone]). Do not use lotions, creams, powders, perfume, make up, cologne or after-shaves day of surgery. Remove ALL jewelry including wedding rings, body piercings, hair extensions that contain metal, nail nicaraguan, make-up, and contact lens. You may brush your teeth the morning of surgery, but do not swallow the water. Wear your dentures and partial plates to the hospital (no adhesive). Shower the night the before. If applicable, use the CHG (chlorhexidine gluconate) soap or wipes. Please be advised, [facility] has transitioned to a cashless payment system. [...] RIGHTS AND RESPONSIBILITIES As a patient at [facility], you have the right to: Receive medical care and be informed of who is taking care of you Be treated with dignity and respect Have a family member/open claims representative of choice and your physician notified of your admission Receive information and actively participate in decisions about your care and treatment Refuse care, treatment and services Decide who may provide your support and speak for you Access orthodoxy and spiritual services Participate in ethical issues [...] of hospital charges and payment methods Patient/patient open claims representative responsibilities are to: Provide information about health status to facilitate care, treatment and services Follow the treatment, plan, keep appointments and speak up when you do not understand the plan Respect the rights of other patients and healthcare personnel Follow organizational rules and regulations that support quality care and a safe environment Fulfill financial obligations as promptly as possible [facility] SystemInstructionsNot on filedocumented in this encounter [facility] SystemInstructionsNot on filedocumented in this encounter [facility] SystemInstructionsNot on filedocumented in this encounter [facility] Notes* Pre-Procedure Instructions - Bessie Boswell RN - 01/18/2024 3:45 PM EDT Your surgery/procedure is scheduled at [facility] on 01/25/24 at 10 am Arrival Time 8 am [facility] Address: [address] [place] [address], [address] [address] in the Emergency Center Parking lot. Report to the front desk auxiliary in the Emergency/Surgery Registration lobby of the hospital. Notify your SURGEON if you develop any illness such as a cold, cough, fever, sore throat, vomiting or are hospitalized between now and your surgery. Please call Pre-Admission Clinic at [phone] if you have any questions prior to surgery. For questions the morning of surgery, call the Pre-op Department at [phone]. Medication Instructions (Do not stop your medications [...] would like to schedule therapy at a [facility] facility, please call [phone] ([phone]). Do not use lotions, creams, powders, perfume, make up, cologne or after-shaves day of surgery. Remove ALL jewelry including wedding rings, body piercings, hair extensions that contain metal, nail nicaraguan, make-up, and contact lens. You may brush your teeth the morning of surgery, but do not swallow the water. Wear your dentures and partial plates to the hospital (no adhesive). Shower the night the before. If applicable, use the CHG (chlorhexidine gluconate) soap or wipes. Please be advised, [facility] [place] has transitioned to a cashless payment system. [...] RIGHTS AND RESPONSIBILITIES As a patient at [facility], you have the right to: Receive medical care and be informed of who is taking care of you Be treated with dignity and respect Have a family member/open claims representative of choice and your physician notified of your admission Receive information and actively participate in decisions about your care and treatment Refuse care, treatment and services Decide who may provide your support and speak for you Access orthodoxy and spiritual services Participate in ethical issues [...] of hospital charges and payment methods Patient/patient open claims representative responsibilities are to: Provide information about health status to facilitate care, treatment and services Follow the treatment, plan, keep appointments and speak up when you do not understand the plan Respect the rights of other patients and healthcare personnel Follow organizational rules and regulations that support quality care and a safe environment Fulfill financial obligations as promptly as possible documented in this encounterTrumbull [facility] HospitalReason for referral (narrative)* Consultation (Routine) - Pending Review Specialty Diagnoses / Procedures Referred By Contact Referred To Contact Physical Medicine and Rehabilitation Diagnoses Herniated lumbar intervertebral disc Lumbar radiculopathy, chronic Jennie Colon, SEARCH ENGINE MARKETING SPECIALIST-LAYDOWN MACHINE OPERATOR [address] [facility] [address] [place] [address] Vishal Martin DO [address] [facility] [address] [place] [address] Referral ID Status Reason Start Date Expiration Date Visits Requested Visits Authorized [id number] Pending Review Specialty Services Required 05/24/2023 05/23/2024 1 1 [facility]Reason for referral (narrative)* Consultation (Routine) - Pending Review Specialty Diagnoses / Procedures Referred By Angela hart Referred To Contact Pain Medicine Diagnoses Lumbar radiculopathy, chronic Herniated lumbar intervertebral disc Jennie Colon APRN-CNP [address] [facility] [address] [place] [address] Davis Silva MD [address] [place] [address] Referral ID Status Reason Start Date Expiration Date V isits Requested Visits Authorized [id number] Pending Review 06/12/2023 06/11/2024 1 1 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 Patient does see [place] spinal surgeon but can't get in until [...] site of digit, initial encounter Nicole Lockwood, SEARCH ENGINE MARKETING SPECIALIST-LAYDOWN MACHINE OPERATOR [address], [place] [address] Rohit Smith MD [address] [email or web address] [address] [place] [address] Referral ID Status Reason Start Date Expiration Date Visits Requested Visits Authorized [id number] Pending Review Specialty Services Required 3 03/12/2024 [...] would not scan at bedside. Verified with [facility] prior to administration.) Scheduled Medication Order [...] July 29, 2024 End: July 29, 2024 Feather Duster Winder Relationship Specialty Start Date End Date Johnathon Winter MD PCP - General Family Medicine 03/08/16 Feather Duster Winder Relationship Specialty Start Date End Date Johnathon Winter MD PCP - General Family Medicine 03/08/16 Feather Duster Winder Relationship Specialty Start Date End Date Johnathon Winter MD PCP - General Family Medicine 03/08/16 Feather Duster Winder Relationship Specialty Start Date End Date Johnathon Winter MD [address] [place] [facility] [phone] PCP - General Family Medicine 12/12/22 Team [...] December 06, 2023 End: December 06, 2023 Feather Duster Winder Relationship Specialty Start Date End Date Johnathon Winter MD [address] [place] [facility] [id number] PCP - General Family Medicine 12/12/22 Feather Duster Winder Relationship Specialty Start Date End Date Johnathon Winter MD [address] [place] [facility] [id number] PCP - General Family Medicine 12/12/22 Feather Duster Winder Relationship Specialty Start Date End Date Johnathon Winter MD [address] [place] [facility] [phone] PCP - General Family Medicine 12/12/22 Feather Duster Winder Relationship Specialty Start Date End Date Johnathon Winter MD [address] [place] [facility] [id number] PCP - General Family Medicine 12/12/22 Feather Duster Winder Relationship Specialty Start Date End Date Johnathon Winter MD [address] [facility] [place] [id number] PCP - General Family Medicine 12/12/22 Feather Duster Winder Relationship Specialty Start Date End Date Johnathon Winter MD [address] [facility] [place] [id number] PCP - General Family Medicine 12/12/22 Feather Duster Winder Relationship Specialty Start Date End Date Johnathon Winter MD [address] [facility] [place] [id number] PCP - General Family Medicine 12/12/22 Feather Duster Winder Relationship Specialty Start Date End Date Johnathon Winter MD [address] [facility] [place] [id number] PCP - General Family Medicine 12/12/22 Feather Duster Winder Relationship Specialty [place] [address] [place] [address], [place] [id number] PCP - General 03/13/23 Feather Duster Winder Relationship Specialty Start Date End Date Johnathon Winter MD [address] [facility] [place] [id number] PCP - General Family Medicine 12/12/22 Team [...] April 11, 2024 End: April 11, 2024 Feather Duster Winder Relationship Specialty [place] [address] [place] [address] [place] [address] PCP - General 03/13/23 Feather Duster Winder Relationship Specialty [place] [address] [place] [address] [place] [address] PCP - General 03/13/23 Team Status: Active Member Role Status Dates Johnathon Winter MD Primary Care Provide r, Attending Provider Active Start: April 15, 2024 Feather Duster Winder Relationship Specialty Start Date End Date Johnathon Winter MD [address] [place] [address] PCP - General 03/13/23 Feather Duster Winder Relationship Specialty Start Date End Date Johnathon Winter MD [address] [place] [address] PCP - General 03/13/23 Feather Duster Winder Relationship Specialty Start Date End Date Johnathon Winter MD [address] [place] [address] PCP - General 03/13/23 Feather Duster Winder Relationship Specialty [place] [address] [place] [address] [place] [address] PCP - General 03/13/23 Feather Duster Winder Relationship Specialty [place] [address] [place] [address] [place] [address] PCP - General 03/13/23 Feather Duster Winder Relationship Specialty Start Date End Date Johnathon Winter MD [address] [place] [facility] [phone] PCP - General Family Medicine 12/12/22 Feather Duster Winder Relationship Specialty Start Date End Date Johnathon Winter MD [address] [facility] [place] [id number] PCP - General Family Medicine 12/12/22 Feather Duster Winder Relationship Specialty Start Date End Date Johnathon Winter MD [address] [facility] [place] [phone] PCP - General Family Medicine 12/12/22 Feather Duster Winder Relationship Specialty Start Date End Date Johnathon Winter MD [address] [facility] [place] [id number] PCP - General Family Medicine 12/12/22 Feather Duster Winder Relationship Specialty Start Date End Date Johnathon Winter MD [address] [facility] [place] [phone] PCP - General Family Medicine 12/12/22 Feather Duster Winder Relationship Specialty Start Date End Date Johnathon Winter MD [address] [place] [address] PCP - General 03/13/23 Feather Duster Winder Relationship Specialty Start Date End Date Johnathon Winter MD [address] [facility] [place] [address] PCP - General Family Medicine 12/12/22 Feather Duster Winder Relationship Specialty Start Date End Date Johnathon Winter MD [address] [place] [phone] PCP - General Family Medicine 12/12/22 Feather Duster Winder Relationship Specialty Start Date End Date Johnathon Winter MD [address] [place] [phone] PCP - General Family Medicine 12/12/22 Feather Duster Winder Relationship Specialty Start Date End Date Johnathon Winter MD [address] [place] [address] PCP - General Family Medicine 12/12/22 Feather Duster Winder Relationship Specialty Start Date End Date Johnathon Winter MD [address] [place], [place] [phone] PCP - General 03/13/23 INFORMATION SOURCE (unrecogn ized section and content) DATE CREATED AUTHOR 07/17/2022 [facility] DATE CREATED AUTHOR AUTHOR'S ORGANIZ ATION 10/12/2022 [facility] DATE CREATED AUTHOR AUTHOR'S ORGANIZ ATION 06/12/2023 [facility] DATE CREATED AUTHOR AUTHOR'S ORGANIZ ATION 12/14/2023 [facility] DATE CREATED AUTHOR AUTHOR'S ORGANIZ ATION 01/26/2024 [facility] DATE CREATED AUTHOR AUTHOR'S ORGANIZ ATION [facility]/2024 [facility] DATE CREATED AUTHOR AUTHOR'S ORGANIZ ATION 10/23/2024 [facility] DATE CREATED AUTHOR AUTHOR'S ORGANIZ ATION 10/30/2024 [facility] EPIC DATE CREATED AUTHOR AUTHOR'S ORGANIZ ATION 11/01/2024 [facility] DATE CREATED AUTHOR AUTHOR'S ORGANIZ ATION 01/11/2025 [facility] Goals (unrecognized section and content) Goals may [...] BE BASED ON THE PRIMARY CLINICAL RECORDS. [facility]. provides no warranty or guarantee of the accuracy or completeness of information in this document.
--- NOTE | 2025-01-16 10:50 | PM.CN ---
Consult Note: HPI Data of Consult Patient: known to practice within the last 3 years Requesting Physician: Minnie Johnson NP Primary Care Provider: Radha Sanchez MD Consult Narrative Reason for consult: low back pain Narrative: Karuna Dumont a pleasant 44 year old female presents for evaluation and management of chronic low back pain. Historically failed formal PT greater than 6 weeks and within the last 12 months she has failed HEP > 6 weeks without benefit, failed tylenol, motrin, meloxicam. does not like taking medications. No new injury or falls. pain today 3-4/10 aching increasing to 10/10 at times. since last visit she underwent a left L4-5 L5-S1 TFESI with 80% improvement in the left. pt noting severe right sided pain at times. MAMI 18%. cc:: CC: Minnie Johnson NP Review of Systems ROS Musculoskeletal Reports: back pain and extremity pain PFSH [facility] Medical History (Updated 01/16/25 @ 10:53 by Minnie Johnson NP) DDD (degenerative disc disease) Back pain ?M54.9 - Dorsalgia, unspecified (ICD-10) Anemia ?D64.9 - Anemia, unspecified (ICD-10) Panic attacks ?F41.0 - Panic disorder [episodic paroxysmal anxiety] (ICD-10) Abnormal uterine bleeding ?N93.9 - Abnormal uterine and vaginal bleeding, unspecified (ICD-10) Menorrhagia ?N92.0 - Excessive and frequent menstruation with regular cycle (ICD-10) Pelvic pain ?R10.2 - Pelvic and perineal pain (ICD-10) Diverticulosis ?K57.90 - Diverticulosis of intestine, part unspecified, without perforation or abscess without bleeding (ICD-10) IBS (irritable bowel syndrome) ?K58.9 - Irritable bowel syndrome without diarrhea (ICD-10) PCOS (polycystic ovarian syndrome) ?E28.2 - Polycystic ovarian syndrome (ICD-10) Cervical cerclage suture present ?O34.30 - Maternal care for cervical incompetence, unspecified trimester (ICD-10) White coat syndrome with high blood pressure without hypertension ?R03.0 - Elevated blood-pressure reading, without diagnosis of hypertension (ICD-10) Migraines ?G43.909 - Migraine, unspecified, not intractable, without status migrainosus (ICD-10) Metabolic syndrome ?E88.810 - Metabolic syndrome (ICD-10) Insulin resistance ?E88.819 - Insulin resistance, unspecified (ICD-10) History of PCOS ?Z87.42 - Personal history of other diseases of the female genital tract (ICD-10) ADHD ?F90.9 - Attention-deficit hyperactivity disorder, unspecified type (ICD-10) Surgical History History of myringotomy ?Z98.890 - Other specified postprocedural states (ICD-10) History of appendectomy ?Z90.49 - Acquired absence of other specified parts of digestive tract (ICD-10) History of breast biopsy ?Z98.890 - Other specified postprocedural states (ICD-10) S/P breast biopsy, left ?Z98.890 - Other specified postprocedural states (ICD-10) H/O tubal ligation ?Z98.51 - Tubal ligation status (ICD-10) H/O section ?Z98.891 - History of uterine scar from previous surgery (ICD-10) History of cervical cerclage ?Z98.890 - Other specified postprocedural states (ICD-10) Status post appendectomy ?Z90.49 - Acquired absence of other specified parts of digestive tract (ICD-10) Hx of cholecystectomy ?Z90.49 - Acquired absence of other specified parts of digestive tract (ICD-10) Family History Other Cancer Delayed recovery from anesthesia Family history of diabetes mellitus Family history of myocardial infarction Social History Within the past year, how often did you have a drink containing alcohol: never Score interpretation: A score less than 3 is consistent with normal alcohol consumption. Smoking status: Never smoker Non-prescribed substance use: denies use Highest level of school completed/degree received: some college, no degree Meds Home Medications and Allergies Home Medications ?Medication ?Instructions ?Recorded ?Confirmed ?Type tirzepatide 10 mg/0.5 mL 10 mg subcut QWEEK 12/12/23 01/16/25 History subcutaneous pen injector (Mounindianaro) amlodipine 5 mg tablet 5 mg PO DAILY 01/06/25 01/16/25 History hydroxyzine HCl 25 mg tablet 25 mg PO DAILY 01/06/25 01/16/25 History lisdexamfetamine 40 mg capsule 40 mg PO DAILY 01/06/25 01/16/25 History (Vyvanse) losartan 100 mg tablet 100 mg PO DAILY 01/06/25 01/16/25 History metoprolol succinate 50 mg 50 mg PO DAILY 01/06/25 01/16/25 History tablet,extended release 24 hr viloxazine 200 mg capsule,extended 400 mg PO DAILY 01/06/25 01/16/25 History release 24 hr (Qelbree) sulindac 200 mg tablet 200 mg PO BID 01/16/25 01/16/25 History Allergies Allergy/AdvReac Type Severity Reaction Status Date / Time adhesive tape Allergy Rash Verified 12/12/23 11:11 topiramate Allergy eyeballs Verified 12/12/23 11:11 feel like hard boiled eggs Exam Constitutional Documenting provider has reviewed patient's vital signs: yes Common normals: oriented x3, healthy appearing, alert and well nourished HENMI Common normals: normocephalic, hearing grossly normal bilaterally and moist oral mucous membranes Head and scalp: normocephalic Eye Common normals: PERRL Pupil: PERRL Neck & C-Spine Common normals: full ROM General: normal visual inspection Chest Common normals: inspection of chest normal Respiratory Common normals: normal respiratory effort, no retractions and no use of accessory muscles Back & Pelvis Lumbar spine/lower back: ROM limited, pain with ROM and lumbar spinal tenderness; straight leg raise negative right and straight leg raise negative left Sacroiliac joints: SI joint(s) abnormal Other: pain to right L4,5,S1 strength 4/5 in BLE right sij positive renae(patricks), gaenslens, thigh thrust, compression test Neuro Common normals: oriented x3 Sensorium/orientation: alert Psych Common normals: mental status grossly normal, thought process normal, cooperative, affect normal, speech normal and activity/motor behavior normal Speech: normal speech Thought process: normal thought process Results Additional Findings Additional findings: If on a controlled substance or opioids, I have checked an [place] report on this patient and there are no aberrancies noted in the prescribing history.??If on a controlled substance or opioid a drug screen was completed and reviewed within the last year, and if there has not been a drug screen completed we ordered one today to monitor higher risk, state monitored pain medication use. As part of providing excellent, safe, comprehensive care, the following was completed at our patient's visit: 1. A medication reconciliation and review to ensure accurate knowledge of current/active medications, including asking our patients to inform us about any nkkd-xlr-zdimoid medications or herbal remedies/nutritional supplements/alternative remedies. 2. A review to specifically ensure our patients have had annual screening for screening for depression, screening for tobacco use, and screening for unhealthy alcohol use. For concerning screenings had a discussion with the patient, provided patient education, and recommended follow-up with primary care provider when appropriate. If patient noted with a risk of falling, they received education on strength, gait, and balance training to prevent future risk of falling. Portions of this note may have been carried over from the previous visit and updated as appropriate. Please note this office utilizes paper charting in addition to the electronic medical record. A list of current medications, vitals, and PMH is available there as the clinical staff outside of myself do not have access to [employer] charting during the clinic day operations. As part of providing quality comprehensive care the current medications, vitals, and PMH were reviewed in the paper chart. Assessment and Plan Assessment and Plan (1) Lumbar stenosis with neurogenic claudication: Assessment and Plan: The patient has had over 3 months of moderate to severe low back and BLE pain with functional impairment and inadequate response to conservative care including NSAIDS (unless there are contraindication such as concurrent blood thinners), multiple oral or topical pain medications, and home exercise program/physical therapy.? Patient has completed >6 weeks of guided home exercise program and/or formal physical therapy program without relief of their symptoms.? I have reviewed the imaging of the lumbar spine and no red flags were identified.? The Oswestry Disability Index was completed, and the patient scored a 18%.?previously 48% 10-6-25 left L4-5 L5-S1 TFESI >50% improvement ongoing (2) Lumbar disc displacement without myelopathy: (3) Sacroiliitis: (4) Degenerative disc disease (DDD) of lumbar region with discogenic back pain and leg pain: Plan 44 year old female with chronic pain, pt frustrated that she is still having pain. wishes to be pain free however she does not like taking medications. she has stopped ibuprofen as it was not effective and she doesnt like to take medications. On exam she does have facet mediated low back pain, sacroiliac joint pain, as well as possible discogenic low back pain. Pt interested in surgical opinion, no recent MRI. will update lumbar MRI without contrast in consideration of NS consultation vs alternative injection therapy. trial sulindac 200mg BID PRN pain, take with food. f/u to review MRI and plan of care
== END 2025-01-16 10:27 | disposition home or self-care (01) ==
LOC: PM 10:26
PROVIDERS: PCP Family Medicine; Visit Provider Nurse Practitioner
DX: M48.062 Spinal stenosis, lumbar region with neurogenic claudication (principal); M51.26 Other intervertebral disc displacement, lumbar region; M46.1 Sacroiliitis, not elsewhere classified; M51.362 Other intervertebral disc degeneration, lumbar region with discogenic back pain and lower extremity pain; E34.9 Endocrine disorder, unspecified; E88.819 Insulin resistance, unspecified; R63.5 Abnormal weight gain
CPT/HCPCS: 36415; 82627; 82670; 84144; 84260; 84270; 84402; 84403; 84482; 86376; 86800; G0463

== ENCOUNTER 2025-02-03 09:02 | Outpatient (OUT) | payer BC, SELFPAY ==
--- OUTSIDE RECORDS SUMMARY | 2025-01-29 08:00 | XMS_ITS | Encounter Summary ---
Author Organization [facility] Address [address] [place] [address] Care Team Providers Care [employer] Name Role Phone Radha Sanchez MD Primary Care Provider [phone] Reason for Visit * ReasonCommentsPost-opEstablished patient presents today for 3 month post op check for the left foot. Patient reports doing well, no concerns. 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 Caffeine: 1- 2 cups/day teaCommentsNoSex and Gender InformationValueDate RecordedSex Assigned at KgwnsFlyrbl30/21/2023 8:59 AM EDTLegal LtcQcjpjs22/15/2023 7:26 PM EDTGender TfqfpsdtClzvuf12/21/2023 8:59 AM EDTSexual OrientationStraight 09/21/2022 8:59 AM EDTdocumented as of this encounter Last Filed Vital Signs Vital SignReadingTime TakenCommentsBlood Pressure--Pulse--Temperature-- Respiratory Rate--Oxygen Saturation--Inhaled Oxygen Concentration--Kemrfh49.2 kg (190 lb)01/29/2025 9:00 AM CCCGncsou305.1 cm (5' 5 )01/29/2025 9:00 AM EDTBody Mass Index31.6201/29/2025 9:00 AM EDTdocumented in this encounter Progress Notes * Georgi Carreon, [place] - 01/29/2025 9:00 AM EDT Images from the original note were not included. Subjective Patient ID: Cindy Dumont is a 44 y.o. female who presents for Post-op (Established patient presents today for 3 month post op check for the left foot. Patient reports doing well, no concerns. ). HPI Date of surgery 08/08/2024: 1st TMT arthrodesis, modified Lazaro bunionectomy, 2nd metatarsal osteotomy with flexor tendon transfer and tailor's bunionectomy of the 5th metatarsal. Patient presents to clinic postoperatively. Overall doing well. She is able to function without anypain on the left foot. Patient also concerned about right foot pain that is getting worse. She has been dealing with painful 2nd toe and 5th toe deformity for many years that is getting worse. She has had to rely on the right foot more during the postoperative phase for the left foot which has seemto aggravate symptoms on the right foot more frequently. She has failed extensive conservative caremeasures and would like to discuss surgical options for the right foot. Review of Systems Constitutional: Negative for activity [...] Morbid obesity with BMI of 45.0-49.9, adult ([facility]) PCOS (polycystic ovarian syndrome) Pre-diabetes Rectal bleeding Off and on since 2018 Weight gain Medications Current Outpatient Medications: Alcohol Swabs (B-D SINGLE USE SWABS REGULAR) pads, , Disp: , Rfl: amLODIPine (Norvasc) 10 MG tablet, Take 10 mg by mouth in the morning., Disp: , Rfl: escitalopram (Lexapro) 10 MG tablet, Take 10 mg by mouth in the morning., Disp: , Rfl: glucose blood (AqueSysuch Verio) test strip, Use as instructed, Disp: 100 each, Rfl: 3 Lancets (JackRabbit SystemsTouch Delica Plus Mfxpen06N) mis, , Disp: , Rfl: losartan (Cozaar) 100 MG tablet, Take 100 mg by mouth Daily, Disp: , Rfl: metoprolol succinate XL (Toprol-XL) 50 MG 24 hr tablet, Take 50 mg by mouth 1 (one) time each day at the same time, Disp: , Rfl: metoprolol-hydroCHLOROthiazide (Lopressor HCT) 50-25 MG tablet, , Disp: , Rfl: MONOJECT 3CC SYRINGE 3 ML mis, , Disp: , Rfl: Mounjaro 12.5 MG/0.5ML solution auto-injector, inject 0.5 milliliters UNDER THE SKIN ONCE WEEKLY, Disp: 2 mL, Rfl: 3 ondansetron ODT (Zofran-ODT) 4 MG disintegrating tablet, Dissolve one tablet on tongue EVERY 6 HOURS NEEDED FOR NAUSEA AND VOMITING, Disp: 30 tablet, Rfl: 3 Viloxazine HCl ER (Qelbree) 200 MG capsule sustained-release 24 hr, Take 200 mg by mouth in the morning., Disp: , Rfl: cyclobenzaprine (Flexeril) 10 MG tablet, Take 1 tablet (10 mg) by mouth 3 (three) times a day as needed for muscle spasms for up to 10 days, Disp: 30 tablet, Rfl: 0 Allergies Topiramate Past Surgical History Past Surgical [...] Comments: Presents to clinic weight-bearing unassisted in tennis shoes. Accompanied by her children. HENT: Head: Normocephalic and atraumatic. Cardiovascular: Pulses: Normal pulses. Pulmonary: Effort: Pulmonary effort is normal. No respiratory distress. Abdominal: Palpations: There is no mass. Musculoskeletal: Cervical back: No rigidity. Comments: Left foot: Incisions well healed. There is some very mild lateral deviation of the hallux. Second toe remains rectus. No tenderness to palpation of the 1st TMT. No appreciable motion through the 1st TMT joint. No tenderness with stressing of the arthrodesis site. Right foot: Very mild medial eminence and very minimal lateral deviation of the hallux. There is medial deviation of the 2nd and 3rd toes most notably the 2nd with semi flexible plantar flexion contracture of the PIPJ joint with slight dorsiflexion contracture at the MTP of the 2nd toe. There is tenderness to palpation of the lateral 5th metatarsal which is very prominent clinically. Skin: Capillary Refill: Capillary refill takes less than 2 seconds. Findings: No lesion or rash. Neurological: Mental Status: She is alert. Comments: No loss of protective sensation, gross sensation intact. Psychiatric: Mood and Affect: Mood normal. Behavior: Behavior normal. XR foot 3+ views left Imaging Result: AP, medial oblique, lateral views are weight-bearing. Decreased calcaneal inclination. Enthesophyteat the insertion of the Achilles tendon and plantar fascia. There appears to be consolidation of the 1st TMTJoint without any hardware lucency or back out. There has been some very slight lateral deviation of the sesamoid complex and very minimal lateral deviation of the hallux. 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 There has been some hypertrophic bone growth along the 5th metatarsal head proximally. No fractures or dislocations. Assessment/Plan ICD-10-CM 1. S/P foot surgery Z98.890 XR foot 3+ views left 2. 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 Acquired deformity of right toe M20.61 4. Brannon's bunionette, right M21.621 Patient examined and evaluated. Three radiographs of the left foot repeated in office today and I discussed my findings. Overall she seems to be doing very well clinically. There appears to be consolidation of the 1st TMT joint. However, there has been some slight loss of correction at the MTP but at this point it is asymptomatic. At this time she has no restrictions for the left foot. She will continue range of motion and strengthening exercises. I will follow up with her as needed for the left foot. In regards to the right foot she has been dealing with worsening pain and deformity over the last year. She states that the 2nd toe and bunionette area give her significant problems. I discussed treatment options including conservative and surgical approaches. After discussing risks and benefits she would like to move forward with surgical intervention. I will see her back for consent and instructions including radiographs of the right foot. Anticipate shortening osteotomy of the 2nd metatarsalwith flexor tendon transfer versus plantar plate repair as well as 5th metatarsal osteotomy. We will schedule this at her convenience and have her return to clinic for consent and instructions. TodayI spent 30 minutes in oczc-mf-ecxg discussion with the patient as well as surgical planning. This note was created with the assistance of a speech recognition program. While intending to generate a timely document that accurately reflects the content of the visit, no guarantee can be provided that every grammatical or spelling mistake has been or will be identified or corrected. Thank you for your understanding. Georgi Carreon DPM documented in this encounter Plan of Treatment DateTypeDepartmentCare Team (Latest Contact Info)Cgbjyponbqy77/08/2025 11:00 AM ESTOffice Visit [facility] [address] [place] [address] Georgi Carreon DPM [address] [place] [address] 04/02/2025 10:30 AM ESTOffice Visit [facility] [address] [place] [phone] Tee Carreon DPM [address] [place], [place] [id number] 04/18/2025 11:00 AM ESTOffice Visit [facility] [address] [place] [phone] Georgi Carreon, DP [address] [place], [place] [id number] 07/29/2025 1:00 PM EDTOffice Visit [facility] [address] [address] Sanjeev Lopez, [address] [place], [place] [phone] documented as of this encounter Procedures Procedure NamePriorityDate/TimeAssociated DiagnosisCommentsXR FOOT 3+ VIEWS LEFT Fbdepou0701/29/2025 9:23 AM EDT S/P foot surgery documented in this encounter Results * XR foot 3+ views left (01/29/2025 9:23 AM EDT)Anatomical RegionLaterality ModalityLower Extremities, FootLeftRadiographic ImagingSpecimen (Source) Anatomical Location / LateralityCollection Method / VolumeCollection Time Received Time Narrative 01/29/2025 9:27 AM EDT Imaging Result: AP, medial oblique, lateral views are weight-bearing. ??Decreased calcaneal inclination. ??Enthesophyte at the insertion of the Achilles tendon and plantar fascia. ??There appears to be consolidation of the 1st TMTJoint without any hardware lucency or back out. ??There has been some very slight lateral deviation of the sesamoid complex and very minimal lateral deviation of the hallux. 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 ?? There has been some hypertrophic bone growth along the 5th metatarsal head proximally. ??No fractures or dislocations. ?? 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
--- OUTSIDE RECORDS SUMMARY | 2025-01-29 08:25 | XMS_ITS | Encounter Summary ---
Author Organization [facility] Address [address] [place] [address] Care Team Providers Care College Physics Instructor Name Role Phone Radha Sanchez MD Primary Care Provider [phone] Encounter Details DateTypeDepartmentCare Team (Latest Contact Info)Bonnildtwnh12/29/2025 9:25 AM EDTAncillary Procedure [facility] [address] [place] [address] Social History Tobacco UseTypesPacks/DayYears UsedDateSmoking Tobacco: NeverSmokeless Tobacco: NeverAlcohol UseStandard Drinks/WeekCommentsNot Currently0 (1 standard drink = 0.6 oz pure alcohol)Alcohol: 1 or 2 drinks on typical day/monthly or less. Caffeine: 1-2 cups/day teaCommentsNoSex and Gender InformationValueDate RecordedSex Assigned at VkkvtBbebjt70/21/2023 8:59 AM EDTLegal SexFemale 06/15/2022 7:26 PM EDTGender VbfnbuxiCygzso72/21/2023 8:59 AM EDTSexual SysobevbafySkrgjrex38/21/2023 8:59 AM EDTdocumented as of this encounter Plan of Treatment DateTypeDepartmentCare Team (Latest Contact Info)Sbthxnusbwe97/08/2025 11:00 AM ESTOffice Visit [facility] [address] [place] [address] Georgi Carreon, DPM [address] [place], [place] [address] 04/02/2025 10:30 AM ESTOffice Visit [facility] [address] [place] [phone] Tee Carreon DPM [address] [place], [place] [phone] 04/18/2025 11:00 AM ESTOffice Visit [facility] [address] [place] [phone] Georgi Carreon DPM [address], [place] [id number] 07/29/2025 1:00 PM EDTOffice Visit [facility] [address] [facility] [place] [phone] Sanjeev Lopez DO [address] [facility] [place] [address] documented as of this encounter Procedures Procedure NamePriorityDate/TimeAssociated DiagnosisCommentsXR FOOT 3+ VIEWS LEFT Tfyvkgt3301/29/2025 9:23 AM EDT S/P foot surgery documented [...] MemberRelationshipSpecialtyStart DateEnd Date Radha Sanchez MD [address] [place] [address] PCP - GeneralFamily Medicine12/12/22documented as of this encounter
--- OUTSIDE RECORDS SUMMARY | 2025-02-03 09:04 | XMS_ITS | Clinical Summary ---
Author Organization [facility] Address [address] [place] [address] Care Team Providers Care Set And Exhibit Designer Name Role Phone Radha Sanchez MD Primary Care Provider [phone] Allergies Active AllergyReactionsCriticalityNoted LzemTfkdlmajWnrcudfjNvcyZjlmmo29/24/2024 Pt states allergic to paper tape TopiramateOther,Swelling,GhpbzktZxq64/18/2014 Medications MedicationSigDispense QuantityRefillsLast FilledStart DateEnd DateStatus qxxewnowam-jsdvotjyahhrw-vpgz (Fioricet) 50-300-40 mg capsule Take 50 capsules by mouth every 4 (four) hours if needed.5Active amphetamine-dextroamphetamine XR (Adderall XR) 30 mg 24 hr capsule Take 30 mg by mouth in the morning.4Active amphetamine-dextroamphetamine (Adderall) 20 mg tablet Take 20 mg by mouth in the morning.4Active escitalopram (Lexapro) 10 mg tablet Take 10 mg by mouth in the morning.Active magnesium glycinate 100 mg magnesium capsule Take 200 mg by mouth in the morning.Active ondansetron ODT (Zofran-ODT) 4 mg disintegrating tablet Take 4 mg by mouth every 8 (eight) hours if needed.5Active Mounjaro 12.5 mg/0.5 mL pen injector 12.5 Units by subcutaneous (via wearable injector) route 1 (one) time per week. 5Active eurfjuwqtmsg-non-goit-FA-vit K 18 mg iron-400 mcg-25 mcg tablet Take by mouth.Active Qelbree 200 mg capsule,extended release 24hr Take 1 capsule by mouth in the morning.Active metoprolol succinate XL (Toprol-XL) 50 mg 24 hr tablet Indications:Benign hypertensive heart disease without congestive heart failure Take 1 tablet (50 mg) by mouth once daily as directed. 90 tablet 5Active losartan (Cozaar) 100 mg tablet Indications:Benign hypertensive heart disease without congestive heart failure Take 1 tablet (100 mg) by mouth once daily as directed. 90 tablet 5Active amLODIPine (Norvasc) 10 mg tablet Indications:Uncontrolled hypertensionTake 1 tablet (10 mg) by mouth in the morning. 90 tablet /ctive Active Problems ProblemNoted DateDiagnosed DateFibrocystic breast fvujwon0906/24/2024Panniculitis affecting back01/25/2024Generalized anxiety /02/2024ttention deficit hyperactivity disorder (ADHD), predominantly inattentive type11/22/2023Mallet deformity of right ring nfmttk5505/16/2023reast pain10/06/2022Frequent headaches 10/06/2022Hallux valgus (acquired), left foot10/06/2022Insulin resistance 10/06/2022Labial cyst10/06/20224010Qieajpbphxo77/06/2023Weight gain10/06/2022History of multiple goeobvehxbqp55/31/8868Ybnkxxwhlo71/31/2022Neurogenic bladder 12/01/2021sychophysiological xdrnzzii53/31/2022Vitamin B12 isznekuetg23/31/2022 DDD (degenerative disc disease), ulfxar042Decreased movements in third jfoqxirdh48/06/2020History of PCOS01/24/2017Insulin controlled gestational diabetes mellitus (GDM) in second izgtmcswc88/24/2017BMI 45.0-49.9, adult 10/17/2016History of spontaneous ezuoxjrw99/05/2017History of delivery 09/05/20165659Hmfpyyrse52/11/2014Irritable bowel qytzbano17/11/2014Migraines 10/11/2013Polycystic ovarian /11/2014 Family History Medical HistoryRelationNameCommentsNo Known ProblemsFatherHeart murmurMother RelationNameStatusCommentsFatherAliveMotherAlive Social History Tobacco UseTypesPacks/DayYears UsedDateSmoking Tobacco: NeverSmokeless Tobacco: Never Tobacco Cessation:Counseling Given: Not Answered Alcohol UseStandard Drinks/WeekCommentsNever0 (1 standard drink = 0.6 oz pure alcohol)NE Safety & EnvironmentAnswerDate RecordedFear of Current or Ex-Partner Not on file05/25/2023Emotionally AbusedNot on file05/25/2023hysically AbusedNot on file05/25/2023Sexually AbusedNot on file05/25/2023hysically or Sexually AbusedNot on file05/25/2023CommentsUnknownSex and Gender Information ValueDate RecordedSex Assigned at HljseEremuw12/02/2025 8:53 AM EDTLegal Sex Qyyfqj7709/29/2021 9:51 PM EDTGender RortdhbfOrvfxz19/02/2025 8:53 AM EDTSexual OrientationHeterosexual or Yhngsxqg69/02/2025 8:53 AM EDT Last Filed Vital Signs Vital SignReadingTime TakenCommentsBlood Pkbiwrth865/8308/05/2024 11:20 AM EDT Swkod998508/05/2024 11:20 AM EDTTemperature--Respiratory Rate--Oxygen Saturation 100%08/05/2024 11:20 AM EDTInhaled Oxygen Concentration--Csfgol76.4 kg (206 lb) 08/05/2024 11:20 AM GUQIpuvvf770.1 cm (5' 5 )08/05/2024 11:20 AM EDTBody Mass Index34.28008/05/2024 11:20 AM EDT Plan of Treatment DateTypeDepartmentCare Team (Latest Contact Info)Glmsrvdomle31/12/2025 10:30 AM ESTOffice Visit [facility] [address] [place] [address] Thomas Phillips MD [address] [facility] [place] [phone] Health MaintenanceDue DateLast DoneCommentsDepression Djnthrftn94/30/1995 Varicella Vaccines (1 of 2 - 13+ 2-dose series)12/01/1995Hepatitis B Vaccines (1 of 3 - 19+ 3-dose series)2001Adult Mwnkzdp8411/30/2004HPV Vaccines (1 - 3- dose SCDM series)2009HPV/Wjigwu9911/30/20123515Njikovfqa83/30/2023COVID-19 Vaccine ( - 2024- season)2024Influenza Vaccine (#1)2024ervical Cancer Qbpxbgcrw71/21/2028Pap Smear07/22/047847/Zoster Vaccines (1 of 2) 2032HIB VaccinesAged OutNo longer eligible based on patient's age to complete this topicIPV VaccinesAged OutNo longer eligible based on patient's age to complete this topicMeningococcal B VaccineAged OutNo longer eligible based on patient's age to complete this topicMeningococcal VaccineAged OutNo longer eligible based on patient's age to complete this topicPneumococcal Vaccine: Pediatrics (0 to 5 Years) and At-Risk Patients (6 to 64 Years)Aged OutNo longer eligible based on patient's age to complete this topicRotavirus VaccinesAged Out No longer eligible based on patient's age to complete this topic Insurance Care Teams Team MemberRelationshipSpecialtyStart DateEnd Date Radha Sanchez MD [address] [facility] [address] PCP - General06/21/24
--- OUTSIDE RECORDS SUMMARY | 2025-02-03 09:04 | XMS_ITS | Encounter Summary ---
Author Organization [facility] Address [address] [place] [address] Care Team Providers Care Regional Merchandising Manager Name Role Phone Radha Sanchez MD Primary Care Provider [phone] Encounter Details DateTypeDepartmentCare Team (Latest Contact Info)Ltevuicyowo61/29/2025amboo flowsheet [facility] [address] [place] [address] Georgi Carreon DPM [address] [place], [place] [phone] Social History Tobacco UseTypesPacks/DayYears UsedDateSmoking Tobacco: NeverSmokeless Tobacco: NeverAlcohol UseStandard Drinks/WeekCommentsNot Currently0 (1 standard drink = 0.6 oz pure alcohol)Alcohol: 1 or 2 drinks on typical day/monthly or less. Caffeine: 1-2 cups/day teaCommentsNoSex and Gender InformationValueDate RecordedSex Assigned at PhvikBxbgse46/21/2023 8:59 AM EDTLegal SexFemale 06/15/2022 7:26 PM EDTGender OtieszonQyhkzs92/21/2023 8:59 AM EDTSexual OqczkbrgdfsBpsdknbm07/21/2023 8:59 AM EDTdocumented as of this encounter Plan of Treatment DateTypeDepartmentCare Team (Latest Contact Info)Vsjpjciqbpc22/08/2025 11:00 AM ESTOffice Visit [facility] [address] [place] [address] Gerogi Carreon DPM [address], [place] [address] 04/02/2025 10:30 AM ESTOffice Visit [facility] [address] [place] [address] Tee Carreon DPM [address], [place] [address] 04/18/2025 11:00 AM ESTOffice Visit [facility] [address] [place] [address] Georgi Carreon, NOE [address] [place] [address] 07/29/2025 1:00 PM EDTOffice Visit [facility] [address] [place] [phone] Sanjeev Lopez DO [address] [facility] [place] [address] documented as of this encounter Visit Diagnoses Not on filedocumented in this encounter Care Teams Team MemberRelationshipSpecialtyStart DateEnd Date Radha Sanchez MD [address] [facility] [place] [address] PCP - GeneralFamily Medicine12/12/22documented as of this encounter
--- OUTSIDE RECORDS SUMMARY | 2025-02-03 09:04 | XMS_ITS | Encounter Summary ---
Author Organization [facility] Address [address] [place] [address] Care Team Providers Care River Captain Name Role Phone Radha Sanchez MD Primary Care Provider [phone] Encounter Details DateTypeDepartmentCare Team (Latest Contact Info)Vetxqbucofh67/07/2024linisync Result Encounter [facility] External Department Unsolicited Sanjeev Lopez, DO [address] [facility] [address] [place] [address] Social History Tobacco UseTypesPacks/DayYears UsedDateSmoking Tobacco: NeverSmokeless Tobacco: NeverAlcohol UseStandard Drinks/WeekCommentsNot Currently0 (1 standard drink = 0.6 oz pure alcohol)Alcohol: 1 or 2 drinks on typical day/monthly or less. Caffeine: 1-2 cups/day teaCommentsNoSex and Gender InformationValueDate RecordedSex Assigned at HavmcOdmira45/21/2023 8:59 AM EDTLegal SexFemale 06/15/2022 7:26 PM EDTGender ZxwdkgwgEjnsav57/21/2023 8:59 AM EDTSexual OhocdenhmgiEbdiijys87/21/2023 8:59 AM EDTdocumented as of this encounter Plan of Treatment DateTypeDepartmentCare Team (Latest Contact Info)Qwzsjpxvzlh17/08/2025 11:00 AM ESTOffice Visit [facility] [address] [place] [phone] Georgi Carreon, NOE [address] [place] [address] 04/02/2025 10:30 AM ESTOffice Visit [facility] [address] [place] [address] Tee Carreon, DPM [address], [place] [phone] 04/18/2025 11:00 AM ESTOffice Visit [facility] [address] [place] [address] Georgi Carreon, [place] [address], [place] [phone] 07/29/2025 1:00 PM EDTOffice Visit [facility] [address] [place] [address] Sanjeev Lopez DO [address] [facility] [place] [address] documented as of this encounter Procedures Procedure NamePriorityDate/TimeAssociated DiagnosisCommentsMM DIAGNOSTIC MAMMO UNILAT LT05/10/2023 8:42 AM EST UH IJHHUFTYZVezcxdb23/07/2024 7:48 AM EST TBH THYROID LCPIAVUFDRBfwthmo68/07/2024 7:48 AM EST SRMCOH TESTOSTERONE FREE/TOT UHAOTASSmrffax28/07/2024 7:48 AM EST METRO SEX BINDING HORMONE (SHBG), TESTOSTERONE, FREE AND BIOAVAILABLERoutine 05/10/2023 7:48 AM EST ALL T3 KJRRECGScxctky71/07/2024 7:48 AM EST ALL VJYDDOAIACHXHotafdn35/07/2024 7:48 AM EST ALL ESTRONE(E1)Bioglyt9905/10/2023 7:48 AM EST ALL DHEA ARTSSRKWjidwos43/07/2024 7:48 AM EST documented in this encounter Results * MM DIAGNOSTIC MAMMO UNILAT LT (05/10/2023 8:42 AM EST)Anatomical Region LateralityModalityOtherSpecimen (Source)Anatomical Location / Laterality Collection Method / VolumeCollection TimeReceived Time05/10/2023 8:42 AM EST Narrative 05/15/2023 1:13 PM EST [facility] ?[address] ? [place], [place] [address] ? Mammography Report ? Signed ? Patient: MARISSA,CHAR D ?MR#: [id number] ?? : 1980 ?Acct:[id number] ?? Age/Sex: 42 / F ?ADM Date: 05/10/23 ?? Loc: MAMMO ? Attending Dr: Sanjeev Lopez D.O. ? Ordering Physician: Sanjeev Lopez D.O. ?Results: ? Date of Service: 05/10/23 ?Follow Up: ? Procedure(s): MM diagnostic mammo unilat LT ?? Accession Number(s): [id number] ? cc: Radha Sanchez M.D.; Sanjeev Lopez D.O. ? Patient Name: ? CHAR MARISSA ? MR#: [id number] ? : 1980 ? Exam Date: 05/10/2023 ?? Ordering Doctor: DR Sanjeev Lopez . ? RADIOLOGY REPORT ? PROCEDURE: ? MM DIAGNOSTIC MAMMO UNILAT LT, 05/10/2023, 08:01 ?? US BREAST LT LIMITED, 05/10/2023, 08:16 ? COMPARISON: ? MG MAMM DIAGNOSTIC 3D RAMA CAD, 04/29/2022. ??MM TOMOSYNTHESIS ?? SCREENING BI, 04/28/2023. ? INDICATIONS: ? Abnormality Of Left Breast On Screening Mammogram ? Calculator Name ? NCI Breast Cancer Risk Assessment Tool ?? 5 Year Breast Cancer Risk ? 0.50% ?? Lifetime Breast Cancer Risk ? 9.00% ?? Personal Breast Cancer ?No ?? Personal Ovarian Cancer ? No ?? Treatments ? None ?? Family Cancers ? Grandmother-maternal with stomach cancer at age 65. ? LOCATION: ? [facility] ? BREAST COMPOSITION: ? Scattered areas fibroglandular density. ? FINDINGS: ? DIAGNOSTIC CATEGORY 4--SUSPICIOUS FOR MALIGNANCY. FINDING DOES NOT EXHIBIT ?? CLASSIC FINDINGS OF BREAST CANCER: ? Spot compression images demonstrate a persistent density lower inner quadrant, ?? mid breast measuring 1.1 x 0.7 cm. ??This lesion is not visualized by ?? ultrasound. ??In light of the substantial change from the prior exam ?? stereotactic breast biopsy was recommended to the patient ? RECOMMENDATIONS: ? STEREOTACTIC BREAST BIOPSY: LEFT BREAST ? PLEASE NOTE: ??A NORMAL MAMMOGRAM DOES NOT EXCLUDE THE POSSIBILITY OF BREAST ?? CANCER. ??A CLINICALLY SUSPICIOUS PALPABLE LUMP SHOULD BE BIOPSIED. ? Dictated by: Mj Silva MD on 05/10/2023 at 08:33 ? Approved by: Mj Silva MD on 05/10/2023 at 08:42 ? Dictated By: ?Mj Silva M.D. ? Signed By: ?05/15/23 1313 ? DD/ 0842 ? TD/TT: ? Residential Assistant: Procedure Note Radiology, Radiologist, MD - 06/07/[address] [address] Mammography Report Signed Patient: CHAR DUMONT DMR#: [id number] : 1980Acct:[id number] Age/Sex: 42 / FADM Date: 05/10/23 Loc: MAMMO Attending Dr: Sanjeev Lopez D.O. Ordering Physician: Sanjeev Lopez D.O.Results: Date of Service: 05/10/23Follow Up: Procedure(s): MM diagnostic mammo unilat LT Accession Number(s): [id number] cc: Radha Sanchez M.D.; Sanjeev Lopez D.O. Patient Name: CHAR DUMONT MR#: [id number] : 1980 Exam Date: 05/10/2023 Ordering Doctor: [...] stomach cancer at age 67. LOCATION: [facility] BREAST COMPOSITION: Scattered areas fibroglandular density. FINDINGS: [...] M.D. Signed By:05/15/23 1313 DD/ 0842 TD/TT: Residential Assistant: Authorizing ProviderResult TypeResult StatusCorey Jessica DOCLINISYNC IMAGINGFinal Result * SRMCOH TESTOSTERONE FREE/TOT EQUILIB (05/10/2023 7:48 AM EST)ComponentValueRef RangeTest MethodAnalysis TimePerformed AtPathologist EpokoeiwsEOIKZWDRMNPT741 - 60 ng/dLTBHFREE TESTOSTERONE(DIRECT)0.60.0 - 4.2 pg/mLTBHComment: Performed at: ??[facility] ??[id number] Screening Specialist: Theron Roblero PhD, Phone: ??[phone] Performed at: ??[facility] [address] ??[id number] Screening Specialist: Katelynn Macdonald MD, Phone: ??[phone] Specimen (Source)Anatomical Location / LateralityCollection Method / Volume Collection TimeReceived Time05/10/2023 7:48 AM EST05/10/2023 7:51 AM EST Narrative CLINISYNC - 06/15/2023 1:47 PM EDT Authorizing ProviderResult TypeResult StatusCorey Jessica DOCLINISYNCFinal Result Performing OrganizationAddressCity/State/[facility] CodePhone Number CLINISYNC TB * TBH THYROID ANTIBODIES (05/10/2023 7:48 AM EST)ComponentValueRef RangeTest MethodAnalysis TimePerformed AtPathologist SignatureTHYROID PEROXIDASE (TPO) AB110 - 34 IU/mLTBHTHYROGLOBULIN ANTIBODY<1.00.0 - 0.9 IU/mLTBHComment: Thyroglobulin Antibody measured by Sarah [place] Methodology Performed at: ??[facility] [address] ??[id number] Screening Specialist: Theron Roblero PhD, Phone: ??[phone] Specimen (Source)Anatomical Location / LateralityCollection Method / Volume Collection TimeReceived Time05/10/2023 7:48 AM EST05/10/2023 7:51 AM EST Narrative CLINISYNC - 06/15/2023 1:47 PM EDT Authorizing ProviderResult TypeResult StatusCorey Jessica DOCLINISYNCFinal Result Performing OrganizationAddunion county general hospitalCity/[facility] CodePhone Number [facility] * UH SEROTONIN (05/10/2023 7:48 AM EST)ComponentValueRef RangeTest Method Analysis TimePerformed AtPathologist SignatureSEROTONIN, MTHUC75808 - 207 ng/mLTBHComment: This test was developed and its performance characteristics determined by [facility]. It has not been cleared or approved by the Food and Drug Administration. Performed at: ?? - [address] ??[id number] Screening Specialist: Katelynn Macdonald MD, Phone: ??[phone] Specimen (Source)Anatomical Location / LateralityCollection Method / Volume Collection TimeReceived Time05/10/2023 7:48 AM EST05/10/2023 7:51 AM EST Narrative CLINISYNC - 06/15/2023 1:47 PM EDT Authorizing ProviderResult TypeResult StatusCorey Jessica DOCLINISYNCFinal Result Performing [facility] CenterPhone Number [facility] * METRO SEX BINDING HORMONE (SHBG), TESTOSTERONE, FREE AND BIOAVAILABLE (05/10/2023 7:48 AM EST)ComponentValueRef RangeTest MethodAnalysis Time Performed AtPathologist SignatureSEX HORM BINDING GLOB, SERUM49.124.6 - 122.0 nmol/LTBHComment: Performed at: ??[facility] [address] ??[id number] Screening Specialist: Theron Roblero PhD, Phone: ??[phone] Specimen (Source)Anatomical Location / LateralityCollection Method / Volume Collection TimeReceived Time05/10/2023 7:48 AM EST05/10/2023 7:51 AM EST Narrative CLINISYNC - 06/15/2023 1:47 PM EDT Authorizing ProviderResult TypeResult StatusCorey Jessica DOCLINISYNCFinal Result Performing [facility]Add[facility]/ZIP CodePhone Number [facility] * ALL T3 REVERSE (05/10/2023 7:48 AM EST)ComponentValueRef RangeTest Method Analysis TimePerformed AtPathologist SignatureREVERSE T3, SERUM23.09.2 - 24.1 ng/dLTBHComment: This test was developed and its performance characteristics determined by [facility]. It has not been cleared or approved by the Food and Drug Administration. Performed at: ?? - [address] ??[id number] Screening Specialist: Katelynn Macdonald MD, Phone: ??[phone] Specimen (Source)Anatomical Location / LateralityCollection Method / Volume Collection TimeReceived Time05/10/2023 7:48 AM EST05/10/2023 7:51 AM EST Narrative CLINISYNC - 06/15/2023 1:47 PM EDT Authorizing ProviderResult TypeResult StatusCorey Jessica DOCLINISYNCFinal Result Performing OrganizationAddressCity/State/ZIP CodePhone Number [facility] TB * ALL ESTRONE(E1) (05/10/2023 7:48 AM EST)ComponentValueRef RangeTest Method Analysis TimePerformed AtPathologist JltabinfgJQTRSBZBS06.9. pg/mLTBHComment: ? Adult Female ? Range ?Follicular phase ? 12.5 - 166.0 ?Ovulation phase ?85.8 - 498.0 ?Luteal phase ? 43.8 - 211.0 Postmenopausal <6.0 - 54.7 ? 1st trimester 215.0 - >4300.0 Skylar ECLIA methodology Specimen (Source)Anatomical Location / LateralityCollection Method / Volume Collection TimeReceived Time05/10/2023 7:48 AM EST05/10/2023 7:51 AM EST Narrative CLINISYNC - 06/15/2023 1:47 PM EDT Authorizing ProviderResult TypeResult StatusCorey Jessica DOCLINISYNCFinal Result Performing OrganizationAddressCity/State/ZIP CodePhone Number CLINISYNC TBH * ALL PROGESTERONE (05/10/2023 7:48 AM EST)ComponentValueRef RangeTest Method Analysis TimePerformed AtPathologist SignaturePROGESTERONE0.1. ng/mLTBH Comment: ? Follicular phase ? 0.1 - ?? 0.9 ? Luteal phase ? 1.8 - ??23.9 ? Ovulation phase ?0.1 - ??12.0 ?First trimester ?11.0 - ??44.3 ?Second trimester ?? 25.4 - ??83.3 ?Third trimester ?58.7 - 214.0 ? Postmenopausal ? 0.0 - ?? 0.1 Performed at: ??[facility] - [facility] [address] [place], [place] ??[id number] Screening Specialist: Theron Roblero PhD, Phone: ??[phone] Specimen (Source)Anatomical Location / LateralityCollection Method / Volume Collection TimeReceived Time05/10/2023 7:48 AM EST05/10/2023 7:51 AM EST Narrative CLINISYNC - 06/15/2023 1:47 PM EDT Authorizing ProviderResult TypeResult StatusCorey Jessica DOCLINISYNCFinal Result Performing OrganizationAddressCity/State/ZIP CodePhone Number CLINIS[facility]NC [facility] * ALL DHEA SULFATE (05/10/2023 7:48 AM EST)ComponentValueRef RangeTest Method Analysis TimePerformed AtPathologist SignatureDHEA-IASZPAT435.057.3 - 279.2 ug/dLTBHSpecimen (Source)Anatomical Location / LateralityCollection Method / VolumeCollection TimeReceived Time05/10/2023 7:48 AM EST05/10/2023 7:51 AM EST Narrative CLINISYNC - 06/15/2023 1:47 PM EDT Authorizing ProviderResult TypeResult StatusCorey Jessica DOCLINISYNCFinal Result Performing OrganizationAddressCity/State/ZIP CodePhone Number CLINISYNC [facility] documented in this encounter Visit Diagnoses Not on filedocumented in this encounter Care Teams Team MemberRelationshipSpecialtyStart DateEnd Date Radha Sanchez MD [address] [place] [address] PCP - GeneralFamily Medicine12/12/22documented as of this encounter
--- OUTSIDE RECORDS SUMMARY | 2025-02-03 09:04 | XMS_ITS | Clinical Summary ---
Author Organization [facility] Address [address] [place] [address] Care Team Providers Care Wind Turbine Machinist Name Role Phone Radha Sanchez MD Primary Care Provider [phone] Allergies Active AllergyReactionsCriticalityNoted DateCommentsTopiramateSwellingLow 12/19/2013 Medications MedicationSigDispense QuantityRefillsLast FilledStart DateEnd DateStatus Alcohol Swabs (B-D SINGLE USE SWABS REGULAR) pads 4Active Lancets (OneTouch Delica Plus Ffzwqk92J) misc 4Active MONOJECT 3CC SYRINGE 3 ML misc 01/02/2024ctive glucose blood (OneTouch Verio) test strip Indications:Insulin resistance,Pre-diabetesUse as instructed 100 each 5Active escitalopram (Lexapro) 10 MG tablet Take 10 mg by mouth in the morning.5Active losartan (Cozaar) 100 MG tablet Take 100 mg by mouth Daily5Active metoprolol succinate XL (Toprol-XL) 50 MG 24 hr tablet Take 50 mg by mouth 1 (one) time each day at the same timeActive amLODIPine (Norvasc) 10 MG tablet Take 10 mg by mouth in the morning.6Active Viloxazine HCl ER (Qelbree) 200 MG capsule sustained-release 24 hr Take 200 mg by mouth in the morning.5Active cyclobenzaprine (Flexeril) 10 MG tablet Indications:Muscle crampsTake 1 tablet (10 mg) by mouth 3 (three) times a day as needed for muscle spasms for up to 10 days 30 tablet 5Active ondansetron ODT (Zofran-ODT) 4 MG disintegrating tablet Indications:NauseaDissolve one tablet on tongue EVERY 6 HOURS NEEDED FOR NAUSEA AND VOMITING 30 tablet 5Active Mounjaro 12.5 MG/0.5ML solution auto-injector Indications:Insulin resistance,Weight gaininject 0.5 milliliters UNDER THE SKIN ONCE WEEKLY 2 mL 5Active metoprolol-hydroCHLOROthiazide (Lopressor HCT) 50-25 MG tablet 5Active Active Problems ProblemNoted DateDiagnosed DateBreast pain10/06/2022hronic migraine without aura, not intractable, without status pjrunsdlebs55/06/2023Frequent headaches 10/06/2022Hallux valgus (acquired), left foot10/06/2022Insulin resistance 10/06/2022Labial cyst10/06/20228567Zxidhtwmcac94/06/2023Morbid iamuged8410/06/2022 Polycystic yubopal5610/06/2022Weight gain10/06/2022 Encounters DateTypeDepartmentCare QxijTcajnffuszx36/31/2025Telephone [facility] [address] [place] [address] [place] [address] Natalia Choi LPN 01/29/2025 9:25 AM EDTAncillary Procedure [facility] [address] [place] [address] 01/29/2025 9:00 AM EDTOffice Visit [facility] [address] [place] [address] Georgi Carreon DPM S/P foot surgery (Primary Dx); 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; Acquired deformity of right toe; Brannon's bunionette, right01/29/2025amboo flowsheet [facility] [address] [place] [address] Georgi Carreon DPM 01/29/20254850Nqxoii65/27/4498Nkqsct82/22/2572Myapad38/09/2025Telephone [facility] [address] [place] [address] Natalia Choi, BUCK PRESSER 12/27/2024Refill [facility] [address] [place] [address] Sanjeev Lopez, Insulin resistance; Weight gain12/24/2024Telephone [facility] [address] [place] [address] Natalia Choi, BUCK PRESSER 11/16/2024Refill [facility] [place] [facility] [address] [place] [address] Sanjeev Lopez, Nauseafrom Last 3 Months Family History Medical HistoryRelationNameCommentsAlcohol abuseFatherGeraldDepressionFather GeraldDrug abuseFatherGeraldCancerMaternal Grandfather.Drug abuseMaternal Grandfather.Heart diseaseMaternal Grandfather.HypertensionMaternal Grandfather. StrokeMaternal Grandfather.Thyroid diseaseMaternal Grandmother.Vision loss Maternal Grandmother.AsthmaMotherDawnDiabetesPaternal Grandfather.RelationName StatusCommentsDaughter(2)AliveFatherGeraldMaternal Grandfather.Maternal Grandmother.AliveMotherDawnAlivePaternal Grandfather.Son(3)Alive Social History Tobacco UseTypesPacks/DayYears UsedDateSmoking Tobacco: NeverSmokeless Tobacco: Never Tobacco Cessation:Counseling Given: Not Answered Alcohol UseStandard Drinks/WeekCommentsNot Currently0 (1 standard drink = 0.6 oz pure alcohol)Alcohol: 1 or 2 drinks on typical day/monthly or less. Caffeine: 1- 2 cups/day teaCommentsNoSex and Gender InformationValueDate RecordedSex Assigned at PllcgIlhgdw71/21/2023 8:59 AM EDTLegal MkhSsboyu50/15/2023 7:26 PM EDTGender EqjtrhnnNdrjno44/21/2023 8:59 AM EDTSexual OrientationStraight 09/21/2022 8:59 AM EDT Last Filed Vital Signs Vital SignReadingTime TakenCommentsBlood Taxbqagp526/8204 2:12 PM EDT Xpqss545108/02/2023 8:52 AM DOVMmsnolfrwhe46.5 ??C (97.7 ??F)08/02/2023 8:52 AM EDTRespiratory Iemi674308/02/2023 8:52 AM EDTOxygen Pedujndgjo97%08/02/2023 8:52 AM EDTInhaled Oxygen Concentration--Rpfmcv96.2 kg (190 lb)01/29/2025 9:00 AM EDT Avpnwz008.1 cm (5' 5 )01/29/2025 9:00 AM EDTBody Mass Index31.6201/29/2025 9:00 AM EDT Plan of Treatment DateTypeDepartmentCare Team (Latest Contact Info)Upzkfwuniqt64/08/2025 11:00 AM ESTOffice Visit [facility] [address] [place] [phone] Georgi Carreon DP [address] [place] [address] 04/02/2025 10:30 AM ESTOffice Visit [facility] [address] [place] [phone] Tee Carreon DPM [address] [place] [address] 04/18/2025 11:00 AM ESTOffice Visit [facility] [address] [place] [address] Georgi Carreon DP [address] [place] [address] 07/29/2025 1:00 PM EDTOffice Visit [facility] [address] [place] [address] Sanjeev Lopez, DO [address] [place] [address] Procedures Procedure NamePriorityDate/TimeAssociated DiagnosisCommentsXR FOOT 3+ VIEWS LEFT Heuvvso2001/29/2025 9:23 AM EDT S/P foot surgery from Last 3 Months Results * XR [...] fractures or dislocations. ?? Authorizing ProviderResult TypeResult StatusGeorgi aCrreon DPMIMG XR PROCEDURESFinal Result from Last 3 Months Insurance Care Teams Team MemberRelationshipSpecialtyStart DateEnd Date Radha Sanchez MD [address] [place] [address] PCP - GeneralFakyly Medicine12/12/22
--- OUTSIDE RECORDS SUMMARY | 2025-02-03 09:04 | XMS_ITS | Encounter Summary ---
Author Organization [facility] Address [address] [place] [address] Care Team Providers Care Managed Services Sales Consultant Name Role Phone Radha Sanchez MD Primary Care Provider [phone] Encounter Details DateTypeDepartmentCare Team (Latest Contact Info)Zlfxpbdwcaq95/29/2025Travel Social History Tobacco UseTypesPacks/DayYears UsedDateSmoking Tobacco: NeverSmokeless Tobacco: NeverAlcohol UseStandard Drinks/WeekCommentsNot Currently0 (1 standard drink = 0.6 oz pure alcohol)Alcohol: 1 or 2 drinks on typical day/monthly or less. Caffeine: 1-2 cups/day teaCommentsNoSex and Gender InformationValueDate RecordedSex Assigned at QaqqoFilxvu26/21/2023 8:59 AM EDTLegal SexFemale 06/15/2022 7:26 PM EDTGender WrioiaqrLbswuj77/21/2023 8:59 AM EDTSexual YblpgmkudueGjarwaha60/21/2023 8:59 AM EDTdocumented as of this encounter Plan of Treatment DateTypeDeriverview behavioral healthCare Team (Latest Contact Info)Npgerpiebds49/08/2025 11:00 AM ESTOffice Visit [facility] [address] [place] [address] Georgi Carreon DPM [address] [place] [id number] 04/02/2025 10:30 AM ESTOffice Visit [facility] [address] [place] [address] Tee Carreon, DPM [address], [place] [address] 04/18/2025 11:00 AM ESTOffice Visit [facility] [address] [place] [address] Georgi Carreon, DPM [address] [place], [place] [phone] 07/29/2025 1:00 PM EDTOffice Visit [facility] [address] [place] [address] Sanjeev Lopez DO [address] [place], [place] [phone] documented as of this encounter Visit Diagnoses Not on filedocumented in this encounter Care Teams Team MemberRelationshipSpecialtyStart DateEnd Date Radha Sanchez MD [address] [facility] [place] [phone] PCP - GeneralFamily Medicine12/12/22documented as of this encounter
--- OUTSIDE RECORDS SUMMARY | 2025-02-03 09:04 | XMS_ITS | Encounter Summary ---
Author Organization [facility] Address [address] [place] [address] Care Team Providers Care Senior Librarian Name Role Phone Radha Sanchez MD Primary Care Provider [phone] Encounter Details DateTypeDepartmentCare Team (Latest Contact Info)Vntzalurjmj00/11/2024linisync Result Encounter [facility] External Department Unsolicited Sanjeev Lopez, DO [address] [place] [address] Social History Tobacco UseTypesPacks/DayYears UsedDateSmoking Tobacco: NeverSmokeless Tobacco: NeverAlcohol UseStandard Drinks/WeekCommentsNot Currently0 (1 standard drink = 0.6 oz pure alcohol)Alcohol: 1 or 2 drinks on typical day/monthly or less. Caffeine: 1-2 cups/day teaCommentsNoSex and Gender InformationValueDate RecordedSex Assigned at VjkruOiuzqu30/21/2023 8:59 AM EDTLegal SexFemale 06/15/2022 7:26 PM EDTGender KqthgbmhOaadqw77/21/2023 8:59 AM EDTSexual TaczuqzaeokTvqlrqaw96/21/2023 8:59 AM EDTdocumented as of this encounter Plan of Treatment DateTypeDepartmentCare Team (Latest Contact Info)Jkkvriczxaw17/08/2025 11:00 AM ESTOffice Visit [facility] [address] [place] [phone] Georgi Carreon, NOE [address] [place] [address] 04/02/2025 10:30 AM ESTOffice Visit [facility] [address] [place] [phone] Tee Carreon DPM [address], [place] [phone] 04/18/2025 11:00 AM ESTOffice Visit [facility] [address] [place] [phone] Georgi Carreon DPM [address], [place] [phone] 07/29/2025 1:00 PM EDTOffice Visit [facility] [address] [place] [phone] Sanjeev Lopez, DO [address] [place], [place] [phone] documented as of this encounter Procedures Procedure NamePriorityDate/TimeAssociated DiagnosisCommentsUS BREAST BI LIMITED 03/13/2024 2:58 PM EST documented in this encounter Results * US BREAST BI LIMITED (03/13/2024 2:58 PM EST)Anatomical RegionLaterality ModalityOtherSpecimen (Source)Anatomical Location / LateralityCollection Method / VolumeCollection TimeReceived Time03/13/2024 2:58 PM EST Narrative 03/13/2024 2:59 PM EST [facility] ?[address] ? [place] [address] ? Ultrasound Report ? Signed ? Patient: JULIA,CHAR D ?MR#: [id number] ?? : 1980 ?Acct:[id number] ?? Age/Sex: 43 / F ?ADM Date: 03/13/24 ?? Loc: MAMMO ? Attending Dr: Sanjeev Lopez D.O. ? Ordering Physician: Sanjeev Lopez D.O. ?? Date of Service: 03/13/24 ?? Procedure(s): US breast BI limited ?? Accession Number(s): [id number] ? cc: Radha Sanchez M.D.; Sanjeev Lopez D.O. ? Patient Name: ? CHAR DUMONT ? MR#: [id number] ? : 1980 ? Exam Date: 03/13/2024 ?? Ordering Doctor: DR Sanjeev Lopez . ? RADIOLOGY REPORT ? PROCEDURE: ? MM TOMOSYNTHESIS DIAGNOSTIC BI, 03/13/2024, 13:30 ?? US BREAST BI LIMITED, 03/13/2024, 14:10 ? COMPARISON: ? MM POST BIOPSY LT, 05/23/2023. ??MM TOMOSYNTHESIS DIAGNOSTIC LT, ?? 11/15/2023. ? INDICATIONS: ? Breast Pain ? Calculator Name ? NCI Breast Cancer Risk Assessment Tool ?? 5 Year Breast Cancer Risk ? 0.90% ?? Lifetime Breast Cancer Risk ? 10.90% ?? Personal Breast Cancer ?No ?? Personal Ovarian Cancer ? No ?? Treatments ? None ?? Family Cancers ? Grandmother-maternal with stomach cancer at age 65. ? LOCATION: ? [facility] ? BREAST COMPOSITION: ? There are scattered areas of fibroglandular density. ? FINDINGS: ? DIAGNOSTIC CATEGORY 3--PROBABLY BENIGN FINDING. ??THE FOLLOWING FINDING(S) HAS ?? A HIGH PROBABILITY OF A BENIGN ETIOLOGY: ? The breasts are stable in size and overall fibroglandular ?? configuration.Scattered benign-appearing lymph nodes are present. ? RIGHT BREAST: ??No significant mammographic abnormality. ??Ultrasound ?? demonstrates at the 3 o'clock position a 1.2 x 0.3 x 1.0 cm area of oval ?? smooth hypoechogenicity with some acoustic shadowing, no corresponding ?? mammographic abnormality. ??This is indeterminate the relatively benign in ?? appearance six-month follow-up is recommended for further evaluation. ? LEFT BREAST: ??No significant suspicious finding. ??Micro clip marker lower ?? inner quadrant, mid breast, stable ? RECOMMENDATIONS: ? SHORT TERM FOLLOW-UP ULTRASOUND RIGHT BREAST IN 6 MONTHS. ? PLEASE NOTE: ??A NORMAL MAMMOGRAM DOES NOT EXCLUDE THE POSSIBILITY OF BREAST ?? CANCER. ??A CLINICALLY SUSPICIOUS PALPABLE LUMP SHOULD BE BIOPSIED. ? Dictated by: Mj Silva MD on 03/13/2024 at 14:56 ? Approved by: Mj Silva MD on 03/13/2024 at 14:58 ? Dictated By: ?Mj Silva M.D. ? Signed By: ?12/02/24 1459 ? DD/ 1458 ? TD/TT: ? Security Guard Dispatcher: Procedure Note Radiology, Radiologist, MD - 03/13/2024 [place] [address] Ultrasound Report Signed Patient: CHAR DUMONT DMR#: [id number] : 1980Acct:[id number] Age/Sex: 43 / FADM Date: 03/13/24 Loc: MAMMO Attending Dr: Sanjeev Lopez D.O. Ordering Physician: Sanjeev Lopez D.O. Date of Service: 03/13/24 Procedure(s): US breast BI limited Accession Number(s): [id number] cc: Radha Sanchez M.D.; Sanjeev Lopez D.O. Patient Name: CHAR DUMONT MR#: [id number] : 1980 Exam Date: 03/13/2024 Ordering Doctor: [...] stomach cancer at age 67. LOCATION: [facility] BREAST COMPOSITION: There are scattered areas [...] M.D. Signed By:03/13/24 1459 DD/ 1458 TD/TT: Security Guard Dispatcher: Authorizing ProviderResult TypeResult StatusCorey Jessica DOCLINISYNC IMAGINGFinal Result documented in this encounter Visit Diagnoses Not on filedocumented in this encounter Care Teams Team MemberRelationshipSpecialtyStart DateEnd Date Radha Sanchez MD [address] [place] [phone] PCP - GeneralFamily Medicine12/12/22documented as of this encounter
--- OUTSIDE RECORDS SUMMARY | 2025-02-03 09:04 | XMS_ITS | Encounter Summary ---
Author Organization [facility] Address [address] [place] [address] Care Team Providers Care Screen Printing Equipment Setter Name Role Phone Radha Sanchez MD Primary Care Provider [phone] Encounter Details DateTypeDepartmentCare Team (Latest Contact Info)Ybzdsogbtgx80/07/2024linisync Result Encounter [facility] External Department Unsolicited Sanjeev Lopez, DO [address] [facility] [place] [address] Social History Tobacco UseTypesPacks/DayYears UsedDateSmoking Tobacco: NeverSmokeless Tobacco: NeverAlcohol UseStandard Drinks/WeekCommentsNot Currently0 (1 standard drink = 0.6 oz pure alcohol)Alcohol: 1 or 2 drinks on typical day/monthly or less. Caffeine: 1-2 cups/day teaCommentsNoSex and Gender InformationValueDate RecordedSex Assigned at LyyekEuptys90/21/2023 8:59 AM EDTLegal SexFemale 06/15/2022 7:26 PM EDTGender IwxvsyxzBoachh79/21/2023 8:59 AM EDTSexual IfnadzqghrdThsylpum92/21/2023 8:59 AM EDTdocumented as of this encounter Plan of Treatment DateTypeDepartmentCare Team (Latest Contact Info)Lduxcmhsyvw90/08/2025 11:00 AM ESTOffice Visit [facility] [address] [place] [phone] Georgi Carreon, NOE [address] [place] [address] 04/02/2025 10:30 AM ESTOffice Visit [facility] [address] [place] [phone] Tee Carreon, DPM [address], [place] [address] 04/18/2025 11:00 AM ESTOffice Visit [facility] [address] [place] [phone] Georgi Carreon, DPM [address], [place] [phone] 07/29/2025 1:00 PM EDTOffice Visit [facility] [address] [place] [address] Sanjeev Lopez, [address] [place] [address] documented as of this encounter Procedures Procedure NamePriorityDate/TimeAssociated DiagnosisCommentsUS BREAST LT LIMITED 05/10/2023 8:42 AM EST CORTISOL, FREE DIALYSIS, CWPZNgoymbd43/07/2024 7:48 AM EST [facility] FLZNYNMGmatqtv89/07/2024 7:48 AM EST [facility] GQDPAZSXdzupuw41/07/2024 7:48 AM EST ALL C-NNUGBWWBhjdtqw60/07/2024 7:48 AM EST documented in this encounter Results * US BREAST LT LIMITED (05/10/2023 8:42 AM EST)Anatomical RegionLaterality ModalityOtherSpecimen (Source)Anatomical Location / LateralityCollection Method / VolumeCollection TimeReceived Time05/10/2023 8:42 AM EST Narrative 05/15/2023 1:13 PM EST [facility] ?[address] ? [place] [address] ? Ultrasound Report ? Signed ? Patient: MARISSA,CHAR D ?MR#: [id number] ?? : 1980 ?Acct:[id number] ?? Age/Sex: 42 / F ?ADM Date: 05/10/23 ?? Loc: MAMMO ? Attending Dr: Sanjeev Lopez D.O. ? Ordering Physician: Sanjeev Lopez D.O. ?? Date of Service: 05/10/23 ?? Procedure(s): US breast LT limited ?? Accession Number(s): [id number] ? cc: Radha Sanchez M.D.; Sanjeev Lopez D.O. ? Patient Name: ? CHAR DUMONT ? MR#: [id number] ? : 1980 ? Exam Date: 05/10/2023 [...] at age 67. ? LOCATION: ? [facility] ? BREAST COMPOSITION: ? Scattered areas fibroglandular [...] By: ?Mj Silva M.D. ? Signed By: ?05/15/231312 ? DD/ 0842 ? TD/TT: ? Portrait Painter: Procedure Note Radiology, Radiologist, MD - 05/15/2023 [place] [address] Ultrasound Report Signed Patient: CHAR DUMONT DMR#: [id number] : 1980Acct:[id number] Age/Sex: 42 / FADM Date: 05/10/23 Loc: MAMMO Attending Dr: Sanjeev Lopez D.O. Ordering Physician: Sanjeev Lopez D.O. Date of Service: 05/10/23 Procedure(s): US breast LT limited Accession Number(s): [id number] cc: Radha Sanchez M.D.; Sanjeev Lopez D.O. Patient Name: CHAR DUMONT MR#: [id number] : 1980 Exam Date: 05/10/2023 Ordering Doctor: [...] stomach cancer at age 67. LOCATION: [facility] BREAST [...] M.D. Signed By:05/15/23 1313 DD/ 0842 TD/TT: Portrait Painter: Authorizing ProviderResult TypeResult StatusCorey Jessica BRENNERLINISYNC IMAGINGFinal Result * ALL C-PEPTIDE (05/10/2023 7:48 AM EST)ComponentValueRef RangeTest Method Analysis TimePerformed AtPathologist SignatureC-PEPTIDE, SERUM2.81.1 - 4.4 ng/mLTBHComment: C-Peptide reference interval is for fasting patients. Performed at: ??CB - [facility] [address] ??[id number] Helper Teacher: Theron Roblero PhD, Phone: ??[phone] Specimen (Source)Anatomical Location / LateralityCollection Method / Volume Collection TimeReceived Time05/10/2023 7:48 AM EST05/10/2023 7:51 AM EST Narrative CLINIS[facility]NC - 05/18/2023 5:08 PM EST Authorizing ProviderResult TypeResult StatusCorey Jessica BRENNERLINISYNCFinal Result Performing OrganizationAddressCity/State/ZIP CodePhone Number CLIN[facility]NC [facility] * [facility] ESTRONE (05/10/2023 7:48 AM EST)ComponentValueRef RangeTest MethodAnalysis TimePerformed AtPathologist SignatureESTRONE, PBOXO8437 - 231 pg/mLTBHComment: ?Range ?Adult (Premenopausal) ?27 - 231 ?Menstrual Cycle (1-10 days) ?19 - 149 ?Menstrual Cycle (11-20 days) ?? 32 - 176 ?Menstrual Cycle (21-30 days) ?? 37 - 200 Performed at: ?? - [facility] ??[id number] Helper Teacher: Katelynn Macdonald MD, Phone: ??[phone] Specimen (Source)Anatomical Location / LateralityCollection Method / Volume Collection TimeReceived Time05/10/2023 7:48 AM EST05/10/2023 7:51 AM EST Narrative [facility]IN[facility]NC - 05/18/2023 5:08 PM EST Authorizing ProviderResult TypeResult StatusCorey Jessica DOCLINISYNCFinal Result Performing OrganizationAddressCity/[facility] HospitalPhone Number [facility] * [facility] INSULIN (05/10/2023 7:48 AM EST)ComponentValueRef RangeTest MethodAnalysis TimePerformed AtPathologist SignatureINSULIN7.02.6 - 24.9 uIU/mLTBHComment: Performed at: ?? - [facility] ??[id number] Helper Teacher: Theron Roblero PhD, Phone: ??[phone] Specimen (Source)Anatomical Location / LateralityCollection Method / Volume Collection TimeReceived Time05/10/2023 7:48 AM EST05/10/2023 7:51 AM EST Narrative CLIN[facility]NC - 05/18/2023 5:08 PM EST Authorizing ProviderResult TypeResult StatusCorey Jessica DOCLINISYNCFinal Result Performing OrganizationAddressCity/[facility] HospitalPhone Number CLIN[facility]NC [facility] * CORTISOL, FREE DIALYSIS, LCMS (05/10/2023 7:48 AM EST)ComponentValueRef Range Test MethodAnalysis TimePerformed AtPathologist SignatureCORTISOL, FREE DIALYSIS, LCMS0.787. ug/dLTBHComment: These tests were developed and their performance characteristics determined by [facility]. They have not been cleared or approved by the Food and Drug Administration. Reference Range: 8 AM 0.10 ??- 1.20 4 PM 0.042 - 0.872 Performed at: ??ES - [employer] [address] [place] [address] ??[id number] Helper Teacher: Kal Archibald MD, Phone: ??[phone] Specimen (Source)Anatomical Location / LateralityCollection Method / Volume Collection TimeReceived Time05/10/2023 7:48 AM EST05/10/2023 7:51 AM EST Narrative [facility] - 05/16/2023 6:08 PM EST Authorizing ProviderResult TypeResult StatusCorey Jessica DOLAB BLOOD ORDERABLES Final ResultPerforming OrganizationAddressCity/State/ZIP CodePhone Number CLINISYNC TB documented in this encounter Visit Diagnoses Not on filedocumented in this encounter Care Teams Team MemberRelationshipSpecialtyStart [place] [address] [place] [phone] PCP - GeneralFamily Medicine12/12/22documented as of this encounter
--- OUTSIDE RECORDS SUMMARY | 2025-02-03 09:04 | XMS_ITS | Encounter Summary ---
Author Organization [facility] Address [address] [facility] [place] [address] Care Team Providers Care Time Signal Wirer Name Role Phone Radha Sanchez MD Primary Care Provider [phone] Encounter Details DateTypeDepartmentCare Team (Latest Contact Info)Ywzksjciyie63/31/2025Telephone [facility] [address] [place] [address] [place] [address] Natalia Choi LPN Social History Tobacco UseTypesPacks/DayYears UsedDateSmoking Tobacco: NeverSmokeless Tobacco: NeverAlcohol UseStandard Drinks/WeekCommentsNot Currently0 (1 standard drink = 0.6 oz pure alcohol)Alcohol: 1 or 2 drinks on typical day/monthly or less. Caffeine: 1-2 cups/day teaCommentsNoSex and Gender InformationValueDate RecordedSex Assigned at QxhvvCpxwcx16/21/2023 8:59 AM EDTLegal SexFemale 06/15/2022 7:26 PM EDTGender EmzdhyqmSwerka69/21/2023 8:59 AM EDTSexual RlkhbltmrpsGklxwxnh03/21/2023 8:59 AM EDTdocumented as of this encounter Miscellaneous Notes * Telephone Encounter - Natalia Choi LPN - 01/31/2025 9:36 AM EDT 01/23/25 @ 3:25pm Patient called and voiced that she had her labs drawn and that they were unable to get all the vials they needed, patient was unable to complete lab draw because she had an appointment to be at with pain management. Patient would like to know if there is an injectable that she is able to take to help with her symptoms. Patient voiced that she was not to impressed with [facility]. Patient voiced she is still having perimenopause symptoms night sweats/hot flashes/can't sleep/wake up at 2 am and unable to fall back asleep/forgetful/abarca (especially with spouse). 01/31/25 @09:36am Called patient to discuss labs as office has not received any at this time. Notified patient that the labs she had drawn could be send outs, so nursing was waiting to see results before reaching out to her. PVU and stated that she had them drawn at [facility]. Obtained results while on the phone with patient and informed her only 6 of the 23 labs ordered were drawn. Patient voiced that she is setup for an MRI on Monday02/03/25 and will be able to have labs drawn at that time. Informed patient that nursing will talk with Dr. Lopez on Monday to inquire about medication for symptoms.Patient voiced that she has even switched Psychiatrist and they have prescribed her Prozac 10mg (ptvoiced child dose) to see if this helps. Patient voiced she has not yet picked up prescription formpharmacy as her appointment was just yesterday at 3pm. Informed patient that ursing will reach backout to her after talking with Dr. Lopez. Natalia Celeste LPN documented in this encounter Plan of Treatment DateTypeDepartmentCare Team (Latest Contact Info)Sdjebqjfzod86/08/2025 11:00 AM ESTOffice Visit [facility] [address] [place] [address] Georgi Carreon DPM [address] [place] [address] 04/02/2025 10:30 AM ESTOffice Visit [facility] [address] [place] [phone] Tee Carreon, DPM [address], [place] [address] 04/18/2025 11:00 AM ESTOffice Visit [facility] [address] [place] [address] Georgi Carreon DPM [address], [place] [address] 07/29/2025 1:00 PM EDTOffice Visit [facility] [address] [place] [address] Sanjeev Lopez DO [address] [facility] [address] [place], [place] [phone] documented as of this encounter Visit Diagnoses Not on filedocumented in this encounter Care Teams Team MemberRelationshipSpecialtyStart DateEnd Date Radha Sanchez MD [address] [facility] [place] [phone] PCP - GeneralFamily Medicine12/12/22documented as of this encounter
--- OUTSIDE RECORDS SUMMARY | 2025-02-03 09:04 | XMS_ITS | Encounter Summary ---
Author Organization [facility] Address [address] [place] [address] Care Team Providers Care Bank Officer Name Role Phone Radha Sanchez MD Primary Care Provider [phone] Encounter Details DateTypeDepartmentCare Team (Latest Contact Info)Ygzjsbviakz37/27/2025Travel Social History Tobacco UseTypesPacks/DayYears UsedDateSmoking Tobacco: NeverSmokeless Tobacco: NeverAlcohol UseStandard Drinks/WeekCommentsNot Currently0 (1 standard drink = 0.6 oz pure alcohol)Alcohol: 1 or 2 drinks on typical day/monthly or less. Caffeine: 1-2 cups/day teaCommentsNoSex and Gender InformationValueDate RecordedSex Assigned at ZzpxsBptubk34/21/2023 8:59 AM EDTLegal SexFemale 06/15/2022 7:26 PM EDTGender XkzwoycxBgwcom51/21/2023 8:59 AM EDTSexual VtzomerxhxqRqnltcky11/21/2023 8:59 AM EDTdocumented as of this encounter Plan of Treatment DateTypeDesurgical hospital of jonesboroCare Team (Latest Contact Info)Mgecdrvwags78/08/2025 11:00 AM ESTOffice Visit [facility] [address] [place] [address] Georgi Carreon DPM [address] [place] [id number] 04/02/2025 10:30 AM ESTOffice Visit [facility] [address] [place] [address] Tee Carreon, DPM [address], [place] [address] 04/18/2025 11:00 AM ESTOffice Visit [facility] [address] [place] [address] Georgi Carreon, DPM [address], [place] [address] 07/29/2025 1:00 PM EDTOffice Visit [facility] [place] [address] [facility] [facility] [place] [address] Sanjeev Lopez DO [address] [place], [place] [phone] documented as of this encounter Visit Diagnoses Not on filedocumented in this encounter Care Teams Team MemberRelationshipSpecialtyStart DateEnd Date Radha Sanchez MD [address] [facility] [place] [phone] PCP - GeneralFamily Medicine12/12/22documented as of this encounter
--- OUTSIDE RECORDS SUMMARY | 2025-02-03 09:04 | XMS_ITS | Encounter Summary ---
Author Organization [facility] Address [address] [place] [address] Care Team Providers Care Patient Day Coordinator Name Role Phone Radha Sanchez MD Primary Care Provider [phone] Encounter Details DateTypeDepartmentCare Team (Latest Contact Info)Gqooqysbwed36/08/2024linisync Result Encounter [facility] External Department Unsolicited Sanjeev Lopez, DO [address] [facility] [place] [address] Social History Tobacco UseTypesPacks/DayYears UsedDateSmoking Tobacco: NeverSmokeless Tobacco: NeverAlcohol UseStandard Drinks/WeekCommentsNot Currently0 (1 standard drink = 0.6 oz pure alcohol)Alcohol: 1 or 2 drinks on typical day/monthly or less. Caffeine: 1-2 cups/day teaCommentsNoSex and Gender InformationValueDate RecordedSex Assigned at PgwirPvevoe18/21/2023 8:59 AM EDTLegal SexFemale 06/15/2022 7:26 PM EDTGender FncuiynlZmmoai32/21/2023 8:59 AM EDTSexual OvmsclpijvdCsymdypv36/21/2023 8:59 AM EDTdocumented as of this encounter Plan of Treatment DateTypeDepartmentCare Team (Latest Contact Info)Odkhayeelmk97/08/2025 11:00 AM ESTOffice Visit [facility] [address] [place] [phone] Georgi Carreon, NOE [address] [place] [address] 04/02/2025 10:30 AM ESTOffice Visit [facility] [address] [place] [phone] Tee Carreon DPM [address] [place], [place] [phone] 04/18/2025 11:00 AM ESTOffice Visit [facility] [address] [place] [phone] Georgi Carreon DPM [address] [place], [place] [phone] 07/29/2025 1:00 PM EDTOffice Visit [facility] [address] [place] [phone] Sanjeev Lopez, DO [address] [facility] [address] [place], [place] [phone] documented as of this encounter Procedures Procedure NamePriorityDate/TimeAssociated DiagnosisCommentsMM STEREOTACTIC LOC LT06/09/2023 9:01 AM EST documented in this encounter Results * MM STEREOTACTIC LOC LT (06/09/2023 9:01 AM EST)Anatomical RegionLaterality ModalityRadiographic ImagingSpecimen (Source)Anatomical Location / Laterality Collection Method / VolumeCollection TimeReceived Time06/09/2023 9:01 AM EST Narrative 06/09/2023 9:02 AM EST [facility] ?[address] ? [place] [address] ? Mammography Report ? Signed ? Patient: JULIA,CHAR D ?MR#: [id number] ?? : 1980 ?Acct:[id number] ?? Age/Sex: 42 / F ?ADM Date: 02/20/24 ?? Loc: MAMMO ? Attending Dr: Sanjeev Garcia.O. ? Ordering Physician: Sanjeev Lopez D.O. ?Results: ? Date of Service: 05/23/23 ?Follow Up: ? Procedure(s): MM stereotactic loc LT ?? Accession Number(s): [id number] ? cc: Radha Sanchez M.D.; Sanjeev Lopez D.O. ? Patient Name: ? CHAR DUMONT ? MR#: [id number] ? : 1980 ? Exam Date: 05/23/2023 ?? Ordering Doctor: DR Sanjeev Lopez . ? This report includes an Addendum and supersedes previous reports for this ?? exam. ? RADIOLOGY REPORT ? PROCEDURE: ? MM STEREOTACTIC LOC LT ? COMPARISON: ? MM DIAGNOSTIC MAMMO UNILAT LT, 05/10/2023. ??MM TOMOSYNTHESIS ?? SCREENING BI, 04/28/2023. ??MG MAMM DIAGNOSTIC 3D RAMA CAD, 04/29/2022. ? INDICATIONS: ? density ? DESCRIPTION: ?Following informed consent, digital stereotactic ?? mammographic views were obtained to localize the lesion. ??Multiple ?? vacuum-assisted core biopsies were obtained. ? Specimen images were obtained to confirm proper sampling. ? The location of the biopsy was then marked as indicated below. ? FINDINGS: ? RECOMMENDATIONS: ? SPECIMEN #, LOCATION: ? 5 core samples, lower-inner quadrant left breast, ?? small mild asymmetric opacity. ?? SPECIMEN IMAGE: ? None obtained (no calcifications). ?? BIOPSY NEEDLE: ? 10 gauge Revolve(r) vacuum core biopsy needle. ? MARKER(S) PLACED: ? A single metallic marker was placed in the appropriate ?? targeted location. ? MEDICATION: ? Buffered 1% lidocaine superficial;1% lidocaine with ?? epinephrine deep. ? COMPLICATIONS: ? None. ? PATHOLOGY / LAB: ? Pending. ? CONCLUSION: ? 1. Technically successful biopsy of the breast lesion. ?? 2. Pathology results are pending. ??An addendum will be added when pathology ?? results are final. ? Dictated by: Tee Peterson M.D. on 05/23/2023 at 14:34 ? Approved by: Tee Peterson M.D. on 05/23/2023 at 14:37 ? ADDENDUM: ??Final pathologic diagnosis: ?? Benign breast tissue with focal dense stromal fibrosis. ? Dictated by: Tee Peterson M.D. on 06/09/2023 at 09:00 ? Approved by: Tee Peterson M.D. on 06/09/2023 at 09:01 ? Dictated By: ?Tee Peterson M.D. ? Signed By: ?06/09/23 0902 ? DD/ 0901 ? TD/TT: ? Tower Switch Operator: Procedure Note Radiology, Radiologist, - 06/09/2023 [place] [address] Mammography Report Signed Patient: CHAR DUMONT DMR#: [id number] : 1980Acct:[id number] Age/Sex: 42 / FADM Date: 05/23/23 Loc: MAMMO Attending Dr: Sanjeev Lopez D.O. Ordering Physician: Sanjeev Lopez D.O.Results: Date of Service: 05/23/23Follow Up: Procedure(s): MM stereotactic loc LT Accession Number(s): [id number] cc: Radha Sanchez M.D.; Sanjeev Lopez D.O. Patient Name: CHAR DUMONT MR#: [id number] : 1980 Exam Date: 05/23/2023 Ordering Doctor: [...] Peterson M.D. Signed By:06/09/23901 DD/ 0 TD/TT: Tower Switch Operator: Authorizing ProviderResult TypeResult StatusCorey Jessica DOIMG XR PROCEDURESFinal Result documented in this encounter Visit Diagnoses Not on filedocumented in this encounter Care Teams Team MemberRelationshipSpecialtyStart DateEnd Date Radha Sanchez MD [facility] [place] [address] PCP - GeneralFamily Medicine12/12/22documented as of this encounter
--- OUTSIDE RECORDS SUMMARY | 2025-02-03 09:04 | XMS_ITS | Encounter Summary ---
Author Organization [facility] Address [address] [place] [address] Care Team Providers Care Furniture Mechanic Name Role Phone Radha Sanchez MD Primary Care Provider [phone] Encounter Details DateTypeDepartmentCare Team (Latest Contact Info)Ixudjftewau70/11/2024Clinisync Result Encounter [facility] External Department Unsolicited Sanjeev Lopez, DO [address] [facility] [place] [address] Social History Tobacco UseTypesPacks/DayYears UsedDateSmoking Tobacco: NeverSmokeless Tobacco: NeverAlcohol UseStandard Drinks/WeekCommentsNot Currently0 (1 standard drink = 0.6 oz pure alcohol)Alcohol: 1 or 2 drinks on typical day/monthly or less. Caffeine: 1-2 cups/day teaCommentsNoSex and Gender InformationValueDate RecordedSex Assigned at OvsqlLgeyey23/21/2023 8:59 AM EDTLegal SexFemale 06/15/2022 7:26 PM EDTGender QaireqpeWuhqum31/21/2023 8:59 AM EDTSexual VhbieqbouhoEvxbbaxr29/21/2023 8:59 AM EDTdocumented as of this encounter Miscellaneous Notes * Result Encounter Note - Tatum Atkinson LPN - 03/13/2024 3:00 PM EST Pt notified and was told we could do the BRCA referral documented in this encounter Plan of Treatment DateTypeDepartmentCare Team (Latest Contact Info)Jcxasvjsaqk62/08/2025 11:00 AM ESTOffice Visit [facility] [address] [place] [phone] Georgi Carreon, DP [address] [place] [address] 04/02/2025 10:30 AM ESTOffice Visit [facility] [address] [place] [phone] Tee Carreon DP [address] [place] [address] 04/18/2025 11:00 AM ESTOffice Visit [facility] [address] [place] [phone] Georgi Carreon, [facility] [address] [place] [address] 07/29/2025 1:00 PM EDTOffice Visit [facility] [address] [place] [address] Sanjeev Lopez DO [address] [facility] [place] [address] documented as of this encounter Procedures Procedure NamePriorityDate/TimeAssociated DiagnosisCommentsMM TOMOSYNTHESIS DIAGNOSTIC BI03/13/2024 2:58 PM EST documented in this encounter Results * MM TOMOSYNTHESIS DIAGNOSTIC BI (03/13/2024 2:58 PM EST)Anatomical Region LateralityModalityOtherSpecimen (Source)Anatomical Location / Laterality Collection Method / VolumeCollection TimeReceived Time03/13/2024 2:58 PM EST Narrative 03/13/2024 2:59 PM EST [facility] ?[address] ? [place] [address] ? Mammography Report ? Signed ? Patient: MARISSA,CHAR D ?MR#: [id number] ?? : 1980 ?Acct:[id number] ?? Age/Sex: 43 / F ?ADM Date: 12/11/24 ?? Loc: MAMMO ? Attending Dr: Sanjeev Lopez D.O. ? Ordering Physician: Sanjeev Lopez D.O. ?Results: ? Date of Service: 03/13/24 ?Follow Up: ? Procedure(s): MM tomosynthesis diagnostic BI ?? Accession Number(s): [id number] ? cc: Radha Sanchez M.D.; Sanjeev Lopez D.O. ? Patient Name: ? CHARHARSH MARIECHT ? MR#: [id number] ? : 1980 ? Exam Date: 03/13/2024 [...] at age 67. ? LOCATION: ? [facility] ? BREAST COMPOSITION: ? There are [...] By: ?Mj Silva M.D. ? Signed By: ?03/13/24 145 ? DD/ 57 ? TD/TT: ? Bit Welder: Procedure Note Radiology, Radiologist, MD - 03/13/2024 [place] [address] Mammography Report Signed Patient: CHAR DUMONT DMR#: [id number] : 1980Acct:[id number] Age/Sex: 43 / FADM Date: 03/13/24 Loc: MAMMO Attending Dr: Sanjeev Jessica D.O. Ordering Physician: Sanjeev Lopez D.O.Results: Date of Service: 03/13/24Follow Up: Procedure(s): MM tomosynthesis diagnostic BI Accession Number(s): [id number] cc: Radha Sanchez M.D.; Sanjeev Lopez D.O. Patient Name: CHAR DUMONT MR#: [id number] : 1980 Exam Date: 03/13/2024 Ordering Doctor: [...] stomach cancer at age 67. LOCATION: [facility] BREAST COMPOSITION: There are scattered [...] Dictated By: Mj Silva M.D. Signed By:03/13/24 145 DD/ 57 TD/TT: Bit Welder: Authorizing ProviderResult TypeResult StatusCorey Jessica DOCLINISYNC IMAGINGFinal Result documented in this encounter Visit Diagnoses Not on filedocumented in this encounter Care Teams Team MemberRelationshipSpecialtyStart [place] [address] [place] [phone] PCP - GeneralFamily Medicine12/12/22documented as of this encounter
--- OUTSIDE RECORDS SUMMARY | 2025-02-03 09:04 | XMS_ITS | Encounter Summary ---
Author Organization [facility] Address [address] [place] [address] Care Team Providers Care Purchasing Manager Name Role Phone Radha Sanchez MD Primary Care Provider [phone] Encounter Details DateTypeDepartmentCare Team (Latest Contact Info)Raedecunxhg50/08/2024linisync Result Encounter [facility] External Department Unsolicited Sanjeev Lopez, DO [address] [facility] [place] [address] Social History Tobacco UseTypesPacks/DayYears UsedDateSmoking Tobacco: NeverSmokeless Tobacco: NeverAlcohol UseStandard Drinks/WeekCommentsNot Currently0 (1 standard drink = 0.6 oz pure alcohol)Alcohol: 1 or 2 drinks on typical day/monthly or less. Caffeine: 1-2 cups/day teaCommentsNoSex and Gender InformationValueDate RecordedSex Assigned at CiqhgQwjmoz13/21/2023 8:59 AM EDTLegal SexFemale 06/15/2022 7:26 PM EDTGender MleqysdgQoqxyg33/21/2023 8:59 AM EDTSexual QgsvxpjbtgnWitezekd64/21/2023 8:59 AM EDTdocumented as of this encounter Plan of Treatment DateTypeDepartmentCare Team (Latest Contact Info)Pjjvcjxmnhg07/08/2025 11:00 AM ESTOffice Visit [facility] [address] [place] [phone] Georgi Carreon, NOE [address] [place] [address] 04/02/2025 10:30 AM ESTOffice Visit [facility] [address] [place] [phone] Tee Carreon DPM [address] [place], [place] [phone] 04/18/2025 11:00 AM ESTOffice Visit [facility] [address] [place] [phone] Georgi Carreon DPM [address] [place], [place] [phone] 07/29/2025 1:00 PM EDTOffice Visit [facility] [address] [place] [phone] Sanjeev Lopez, DO [address] [facility] [address] [place], [place] [phone] documented as of this encounter Procedures Procedure NamePriorityDate/TimeAssociated DiagnosisCommentsMM POST BIOPSY LT 06/09/2023 9:02 AM EST documented in this encounter Results * MM POST BIOPSY LT (06/09/2023 9:02 AM EST)Anatomical RegionLateralityModality OtherSpecimen (Source)Anatomical Location / LateralityCollection Method / VolumeCollection TimeReceived Time06/09/2023 9:02 AM EST Narrative 06/09/2023 9:03 AM EST [facility] ?[address] ? [place] [address] ? Mammography Report ? Signed ? Patient: JULIA,CHAR D ?MR#: [id number] ?? : 1980 ?Acct:[id number] ?? Age/Sex: 42 / F ?ADM Date: 02/20/24 ?? Loc: MAMMO ? Attending Dr: Sanjeev Garcia.O. ? Ordering Physician: Sanjeev Lopez D.O. ?Results: ? Date of Service: 05/23/23 ?Follow Up: ? Procedure(s): MM post biopsy LT ?? Accession Number(s): [id number] ? cc: Radha Sanchez M.D.; Sanjeev Lopez D.O. ? Patient Name: ? CHAR DUMONT ? MR#: [id number] ? : 1980 ? Exam Date: 05/23/2023 ?? Ordering Doctor: DR Sanjeev Lopez . ? This report includes an Addendum and supersedes previous reports for this ?? exam. ? RADIOLOGY REPORT ? PROCEDURE: ? MM POST BIOPSY LT ? COMPARISON: ? MM STEREOTACTIC LOC LT, 05/23/2023. ??MM DIAGNOSTIC MAMMO UNILAT ?? LT, 05/10/2023. ??MM TOMOSYNTHESIS SCREENING BI, 04/28/2023. ??MG MAMM DIAGNOSTIC ?? 3D RAMA CAD, 04/29/2022. ? INDICATIONS: ? density ? BREAST COMPOSITION: ? Scattered areas fibroglandular density. ? FINDINGS: ? BIOPSY MARKER: ? A metallic marker has been placed in the targeted location ?? within the lower-inner quadrant of the left breast. ?? BREAST FINDINGS: ?Expected post biopsy findings. ? RECOMMENDATIONS: ? Dictated by: Tee Peterson M.D. on 05/23/2023 at 14:37 ? Approved by: Tee Peterson M.D. on 05/23/2023 at 14:38 ? ADDENDUM: ? FINDINGS: ? DIAGNOSTIC CATEGORY 3--PROBABLY BENIGN FINDING. ??THE FOLLOWING FINDING(S) HAS ?? A HIGH PROBABILITY OF A BENIGN ETIOLOGY: ? RECOMMENDATIONS: ? SHORT TERM FOLLOW-UP DIAGNOSTIC MAMMOGRAM LEFT BREAST IN 6 MONTHS. ? Dictated by: Tee Peterson M.D. on 06/09/2023 at 09:01 ? Approved by: Tee Peterson M.D. on 06/09/2023 at 09:01 ? Dictated By: ?Tee Peterson M.D. ? Signed By: ?06/09/23902 ? DD/ 0902 ? TD/TT: ? Facing End Trimmer: Procedure Note Radiology, Radiologist, MD - 06/09/2023 [place] [address] Mammography Report Signed Patient: CHAR DUMONT DMR#: [id number] : 1980Acct:[id number] Age/Sex: 42 / FADM Date: 05/23/23 Loc: MAMMO Attending Dr: Sanjeev Lopez D.O. Ordering Physician: Sanjeev Lopez D.O.Results: Date of Service: 05/23/23Follow Up: Procedure(s): MM post biopsy LT Accession Number(s): [id number] cc: Radha Sanchez M.D.; Sanjeev Lopez D.O. Patient Name: CHAR DUMONT MR#: [id number] : 1980 Exam Date: 05/23/2023 Ordering Doctor: [...] Peterson M.D. Signed By:06/09/23902 DD/ 1 TD/TT: Facing End Trimmer: Authorizing ProviderResult TypeResult StatusCorey Jessica DOCLINISYNC IMAGINGFinal Result documented in this encounter Visit Diagnoses Not on filedocumented in this encounter Care Teams Team MemberRelationshipSpecialtyStart DateEnd Date Radha Sanchez MD [address] [place] [phone] PCP - GeneralFamily Medicine12/12/22documented as of this encounter
--- OUTSIDE RECORDS SUMMARY | 2025-02-03 09:04 | XMS_ITS | Encounter Summary ---
Author Organization [facility] Address [address] [place] [address] Care Team Providers Care Sanitarian Name Role Phone Radha Sanchez MD Primary Care Provider [phone] Encounter Details DateTypeDepartmentCare Team (Latest Contact Info)Ixyqxultqjr46/24/2024linisync Result Encounter [facility]S External Department Unsolicited Nick Lopez, DO [address] [place] [address] Social History Tobacco UseTypesPacks/DayYears UsedDateSmoking Tobacco: NeverSmokeless Tobacco: NeverAlcohol UseStandard Drinks/WeekCommentsNot Currently0 (1 standard drink = 0.6 oz pure alcohol)Alcohol: 1 or 2 drinks on typical day/monthly or less. Caffeine: 1-2 cups/day teaCommentsNoSex and Gender InformationValueDate RecordedSex Assigned at SdbdaUyxsqf43/21/2023 8:59 AM EDTLegal SexFemale 06/15/2022 7:26 PM EDTGender RojhcdolOgtcen12/21/2023 8:59 AM EDTSexual PzmdwcjlcfmLdhowyst67/21/2023 8:59 AM EDTdocumented as of this encounter Plan of Treatment DateTypeDepartmentCare Team (Latest Contact Info)Wxodazqxhim38/08/2025 11:00 AM ESTOffice Visit [facility] [address] [place] [phone] Georgi Carreon, NOE [address] [place] [address] 04/02/2025 10:30 AM ESTOffice Visit [facility] [address] [place] [phone] Tee Carreon, DPM [address], [place] [address] 04/18/2025 11:00 AM ESTOffice Visit [facility] [address] [place] [phone] Georgi Carreon, DPM [address], [place] [phone] 07/29/2025 1:00 PM EDTOffice Visit [facility] [address] [place] [address] Nick Lopez DO [address] [place] [address] documented as of this encounter Procedures Procedure NamePriorityDate/TimeAssociated DiagnosisCommentsUS PELVIS W/ KRNIUCYGQFCA31/24/2024 11:10 AM EDT TB[facility] PREG QUANT EUIHrsmenr93/24/2024 9:55 AM EDT SRMCOH PROTHROMBIN TIME INR W/O SPUAErrjjoc02/24/2024 9:55 AM EDT [facility] SAKPFjcdsjf57/24/2024 9:55 AM EDT ALL THYROXINE (T4) LEVBZgblpmo87/24/2024 9:55 AM EDT ALL THYROID STIM SIBXOXLEljhize17/24/2024 9:55 AM EDT ALL CBC WITH AUTO LEHRBjrtpuy71/24/2024 9:55 AM EDT documented in this encounter Results * US PELVIS W/ TRANSVAGINAL (10/25/2023 11:10 AM EDT)Anatomical RegionLaterality ModalityOtherSpecimen (Source)Anatomical Location / LateralityCollection Method / VolumeCollection TimeReceived Time10/25/2023 11:10 AM EDT Narrative 10/25/2023 11:13 AM EDT [facility] ?[address] ? [place] [address] ? Ultrasound Report ? Signed ? Patient: MARISSA,CHAR D ?MR#: [id number] ?? : 1980 ?Acct:[id number] ?? Age/Sex: 42 / F ?ADM Date: 10/25/23 ?? Loc: [facility] ? Attending Dr: Nick Lopez D.O. ? Ordering Physician: Nick Lopez D.O. ?? Date of Service: 10/25/23 ?? Procedure(s): US pelvis w/ transvaginal ?? Accession Number(s): [id number] ? cc: Radha Sanchez M.D.; Nick Lopez D.O. ? [facility] ? [address] ? [place] [address] ? Patient Name: ?? CHAR DUMONT ? MRN: [facility]:[id number] ? date: 1980 ?Sex: F ?? Assigned Patient Location: NOMS ?? Current Patient Location: LAB ?? Accession/Order Number: [id number] ?? Exam Date: 10/25/2023 ??09:07 ?Report Date: 10/25/2023 ??11:10 ? At the request of: ?? NICK ??JESSICA ? Procedure: ??US pelvis w/ transvaginal ? EXAMINATION: US pelvis w/ transvaginal ? HISTORY: MENORRHAGIA, PELVIC PAIN ? COMPARISON: No relevant comparison available. ? FINDINGS: ? Transabdominal and transvaginal images ? The uterus is normal in size, contour and myometrial echotexture measuring 8.6 ? x 4.4 x 5.4 cm. Anteverted, anteflexed. ? The endometrium measures 7 mm, normal. ? The right ovary is normal measuring 3.2 x 2.3 x 3.9 cm. Normal color and ?? Doppler flow. Subcentimeter areas of anechoic echogenicity, follicles. 1.8 cm ?? area of anechoic echogenicity with some low-level echoes likely a cyst. ? The left ovary is normal in size, contour and echotexture measuring 3.7 x 2.0 ?? x ?? 2.7 cm. Normal color Doppler flow. Subcentimeter areas of anechoic ?? echogenicity, follicles ? No free fluid ? US/US pelvis w/ transvaginal ?? IMPRESSION: ? No acute abnormality ? Electronically authenticated by: MONSERRAT ??SUZANNE ?? Date: 10/25/2023 ??11:10 ? Dictated By: ?Monserrat Palcaios M.D. ? Signed By: ?10/25/23 1113 ? DD/ 1110 ? TD/TT: ? Horse Racer: Procedure Note Radiology, Radiologist, - 10/25/2023 [place] [address] Ultrasound Report Signed Patient: CHAR DUMONT DMR#: [id number] : 1980Acct:[id number] Age/Sex: 42 / FADM Date: 10/25/23 Loc: [facility] Attending Dr: Nick Lopez D.O. Ordering Physician: Nick Lopez D.O. Date of Service: 10/25/23 Procedure(s): US pelvis w/ transvaginal Accession Number(s): [id number] cc: Radha Sanchez M.D.; Nick Lopez D.O. [facility] [place] [id number] Patient Name: CHAR DUMONT MRN: [facility]:[id number] date: 1980 Sex: F Assigned Patient Location: [facility] Current Patient Location: LAB Accession/Order Number: [id number] Exam Date: 10/25/2023 09:07 Report Date: 10/25/2023 [...] M.D. Signed By:10/25/23 1113 DD/ 1110 TD/TT: Horse Racer: Authorizing ProviderResult TypeResult StatusCorey Jessica ELIDIALINISYNC IMAGINGFinal Result * ALL THYROXINE (T4) FREE (10/25/2023 9:55 AM EDT)ComponentValueRef RangeTest MethodAnalysis TimePerformed AtPathologist SignatureFREE T41.240.76 - 1.46 ng/dLTBHSpecimen (Source)Anatomical Location / LateralityCollection Method / VolumeCollection TimeReceived Time10/25/2023 9:55 AM EDT10/25/2023 9:56 AM EDT Narrative [facility] - 10/25/2023 11:52 AM EDT Authorizing ProviderResult TypeResult StatusCorey Jessica DOCLINISYNCFinal Result Performing OrganizationAddressCity/State/ZIP CodePhone Number [facility] * [facility] APTT (10/25/2023 9:55 AM EDT)ComponentValueRef RangeTest MethodAnalysis TimePerformed AtPathologist SignaturePARTIAL THROMBOPLASTIN TIME29.522.3 - 36.2 secTBHSpecimen (Source)Anatomical Location / LateralityCollection Method / VolumeCollection TimeReceived Time10/25/2023 9:55 AM EDT10/25/2023 9:56 AM EDT Narrative CLIN[facility]YNC - 10/25/2023 11:49 AM EDT Authorizing ProviderResult TypeResult StatusCorey Jessica DOCLINISYNCFinal Result Performing OrganizationAddressCity/State/ZIP CodePhone Number [facility] * SRMCOH PROTHROMBIN TIME INR W/O COUM (10/25/2023 9:55 AM EDT)ComponentValueRef RangeTest MethodAnalysis TimePerformed AtPathologist SignaturePROTHROMBIN TIME 10.59.0 - 11.6 secTBHTBH INR0.99TBHComment: DESIRED INR: 2.0-3.0 CONDITIONS NOT LISTED BELOW 2.5-3.5 FOR PROSTHETIC HEART VALVE REPLACEMENT 2.5-3.5 RECURRENT THROMBOSIS Specimen (Source)Anatomical Location / LateralityCollection Method / Volume Collection TimeReceived Time10/25/2023 9:55 AM EDT10/25/2023 9:56 AM EDT Narrative CLIN[facility]YNC - 10/25/2023 11:49 AM EDT Authorizing ProviderResult TypeResult StatusCorey Jessica DOCLINISYNCFinal Result Performing OrganizationAddressCity/State/ZIP CodePhone Number [facility] * TB[facility] PREG QUANT HCG (10/25/2023 9:55 AM EDT)ComponentValueRef RangeTest Method Analysis TimePerformed AtPathologist SignatureHCG QUANTITATIVE<1mIU/mLTBH Comment: 5-50 ? 0.2-1 WEEK 50-500 ? 1-2 WEEKS 100-5,000 ?2-3 WEEKS 500-10,000 ? 3-4 WEEKS 1,000-50,000 ?? 4-5 WEEKS 10,000-100,000 5-6 WEEKS 15,000-200,000 6-8 WEEKS 10,000-100,000 2-3 MONTHS Specimen (Source)Anatomical Location / LateralityCollection Method / Volume Collection TimeReceived Time10/25/2023 9:55 AM EDT10/25/2023 9:56 AM EDT Narrative CLINISYNC - 10/25/2023 11:26 AM EDT Authorizing ProviderResult TypeResult StatusCorey Jessica DOCLINISYNCFinal Result Performing OrganizationAddressCity/State/ZIP CodePhone Number [facility] * ALL THYROID STIM HORMONE (10/25/2023 9:55 AM EDT)ComponentValueRef RangeTest MethodAnalysis TimePerformed AtPathologist SignatureTHYROID STIMULATING HORMONE1.4970.358 - 3.740 uIU/mLTBHSpecimen (Source)Anatomical Location / LateralityCollection Method / VolumeCollection TimeReceived Time10/25/2023 9:55 AM EDT10/25/2023 9:56 AM EDT Narrative CLINISYNC - 10/25/2023 11:26 AM EDT Authorizing ProviderResult TypeResult StatusCorey Jessica DOCLINISYNCFinal Result Performing OrganizationAddressCity/State/ZIP CodePhone Number [facility] * ALL CBC WITH AUTO DIFF (10/25/2023 9:55 AM EDT)ComponentValueRef RangeTest MethodAnalysis TimePerformed AtPathologist SignatureTBH WBC5.54.0 - 11.0 10 3/uLTBHTBH RBC4.524.20 - 5.40 10 6/uLTBHTBH HGB12.612.0 - 16.0 g/dLTBHTBH HCT 39.836.0 - 48.0 %TBHTBH MCV88.181.0 - 99.0 fLTBHTBH MCH27.926.7 - 34.0 pgTBH TBH MCHC31.729.9 - 35.2 g/dLTBHTBH RDW14.511.0 - 15.0 %TBHTBH GVI779653 - 450 10 3/uLTBHTBH MPV9.79.5 - 13.5 fLTBHNEUTROPHILS PERCENT AUTO57.843.0 - 75.0 % TBHLYMPHOCYTES PERCENT AUTO33.320.5 - 60.0 %TBHMONOCYTES PERCENT AUTO5.41.7 - 12.0 %TBHTBH EO %2.20.9 - 7.0 %TBHBASOPHILS PERCENT AUTO1.10.2 - 2.0 %TBH IMMATURE GRANULOCYTES PCT AUTO0.20.0 - 0.5 %TBHNEUTROPHILS ABSOLUTE AUTO3.21.4 - 6.5 10 3/uLTBHLYMPHOCYTES ABSOLUTE AUTO1.81.2 - 3.8 10 3/uLTBHMONOCYTES ABSOLUTE AUTO0.30.3 - 0.8 10 3/uLTBHTBH EO #0.10.0 - 0.7 10 3/uLTBHBASOPHILS ABSOLUTE AUTO0.10.0 - 0.1 10 3/uLTBHIMMATURE GRANULOCYTES ABS AUTO0.010.00 - 0.03 10 3/uLTBHSpecimen (Source)Anatomical Location / LateralityCollection Method / VolumeCollection TimeReceived Time10/25/2023 9:55 AM EDT10/25/2023 9:56 AM EDT Narrative CLIN[facility]YNC - 10/25/2023 11:26 AM EDT Authorizing ProviderResult TypeResult StatusCorey Jessica DOCLINISYNCFinal Result Performing OrganizationAddressCity/State/ZIP CodePhone Number [facility] documented in this encounter Visit Diagnoses Not on filedocumented in this encounter Care Teams Team MemberRelationshipSpecialtyStart DateEnd Date Radha Sanchez MD [address] [place] [address] PCP - GeneralFamily Medicine12/12/22documented as of this encounter
--- OUTSIDE RECORDS SUMMARY | 2025-02-03 09:04 | XMS_ITS | Encounter Summary ---
Author Organization [facility] Address [address] [place] [address] Care Team Providers Care Timber Harvester Operator Name Role Phone Radha Sanchez MD Primary Care Provider [phone] Encounter Details DateTypeDepartmentCare Team (Latest Contact Info)Amvvdxledkg34/07/2024linisync Result Encounter [facility] External Department Unsolicited Sanjeev Lopez, DO [address] [place] [address] Social History Tobacco UseTypesPacks/DayYears UsedDateSmoking Tobacco: NeverSmokeless Tobacco: NeverAlcohol UseStandard Drinks/WeekCommentsNot Currently0 (1 standard drink = 0.6 oz pure alcohol)Alcohol: 1 or 2 drinks on typical day/monthly or less. Caffeine: 1-2 cups/day teaCommentsNoSex and Gender InformationValueDate RecordedSex Assigned at LionmZfudqt18/21/2023 8:59 AM EDTLegal SexFemale 06/15/2022 7:26 PM EDTGender FcpqabuwCpyepk72/21/2023 8:59 AM EDTSexual IdjoaxcoejrFihahylg76/21/2023 8:59 AM EDTdocumented as of this encounter Plan of Treatment DateTypeDepartmentCare Team (Latest Contact Info)Xohxvnwifek90/08/2025 11:00 AM ESTOffice Visit [facility] [address] [place] [phone] Georgi Carreon, NOE [address] [place] [address] 04/02/2025 10:30 AM ESTOffice Visit [facility] [address] [place] [phone] Tee Carreon, DPM [address] [place] [address] 04/18/2025 11:00 AM ESTOffice Visit [facility] [address] [place] [phone] Georgi Carreon, DPM [address], [place] [phone] 07/29/2025 1:00 PM EDTOffice Visit [facility] [address] [place] [address] Sanjeev Lopez DO [address] [place] [address] documented as of this encounter Procedures Procedure NamePriorityDate/TimeAssociated DiagnosisCommentsMM DIAGNOSTIC MAMMO UNILAT LT05/10/2023 8:42 AM EST [facility] VITAMIN D 25 UQYcaiwtg22/07/2024 7:48 AM EST [facility] GLUCOSE GPHZRLrmnbee29/07/2024 7:48 AM EST MLR HEMOGLOBIN E0JCskvuih73/07/2024 7:48 AM EST [facility] IMGWHQEPGkwwxaz74/07/2024 7:48 AM EST ALL THYROXINE (T4) PNHPFkgbwvq68/07/2024 7:48 AM EST ALL THYROXINE (T4)Vrfamza5205/10/2023 7:48 AM EST ALL THYROID STIM FKHUVIHReclrqt14/07/2024 7:48 AM EST ALL T3 FDQJQzcmupi60/07/2024 7:48 AM EST documented in this encounter Results * MM DIAGNOSTIC MAMMO UNILAT LT (05/10/2023 8:42 AM EST)Anatomical Region LateralityModalityOtherSpecimen (Source)Anatomical Location / Laterality Collection Method / VolumeCollection TimeReceived Time05/10/2023 8:42 AM EST Narrative 05/10/2023 8:43 AM EST [facility] ?[address] ? [place] [address] ? Mammography Report ? Signed ? Patient: MARISSA,CHAR D ?MR#: [id number] ?? : 1980 ?Acct:[id number] ?? Age/Sex: 42 / F ?ADM Date: 05/10/23 ?? Loc: MAMMO ? Attending Dr: Sanjeev Lopez D.O. ? Ordering Physician: Sanjeev Lpoez D.O. ?Results: ? Date of Service: 05/10/23 ?Follow Up: ? Procedure(s): MM diagnostic mammo unilat LT ?? Accession Number(s): [id number] ? cc: Radha Sanchez M.D.; Sanjeev Lopez D.O. ? Patient Name: ? CHAR MARISSA ? MR#: [id number] ? : 1980 ? Exam Date: 05/10/2023 [...] at age 67. ? LOCATION: ? [facility] ? BREAST COMPOSITION: ? Scattered areas fibroglandular [...] By: ?Mj Silva M.D. ? Signed By: ?05/10/23 0843 ? DD/ 0842 ? TD/TT: ? Synthetic Filament Spinner: Procedure Note Radiology, Radiologist, - 05/10/[address] [address] Mammography Report Signed Patient: CHAR DUMONT DMR#: [id number] : 1980Acct:[id number] Age/Sex: 42 / FADM Date: 05/10/23 Loc: MAMMO Attending Dr: Sanjeev Lopez D.O. Ordering Physician: Sanjeev Lopez D.O.Results: Date of Service: 05/10/23Follow Up: Procedure(s): MM diagnostic mammo unilat LT Accession Number(s): [id number] cc: Radha Sanchez M.D.; Sanjeev Lopez D.O. Patient Name: CHAR DUMONT MR#: [id number] : 1980 Exam Date: 05/10/2023 Ordering Doctor: [...] stomach cancer at age 67. LOCATION: [facility] [...] 08:42 Dictated By: Mj Silva M.D. Signed By:05/10/2343 DD/ TD/TT: Synthetic Filament Spinner: Authorizing ProviderResult TypeResult StatusCorey Jessicarocio BRENNERLINISYNC IMAGINGFinal Result * ALL THYROXINE (T4) FREE (05/10/2023 7:48 AM EST)ComponentValueRef RangeTest MethodAnalysis TimePerformed AtPathologist SignatureFREE T41.290.76 - 1.46 ng/dLTBHSpecimen (Source)Anatomical Location / LateralityCollection Method / VolumeCollection TimeReceived Time05/10/2023 7:48 AM EST05/10/2023 7:51 AM EST Narrative CLIN[facility]YNC - 05/10/2023 10:22 AM EST Authorizing ProviderResult TypeResult StatusCorey Jessica DOCLINISYNCFinal Result Performing OrganizationAddressCity/State/ZIP CodePhone Number [facility] * [facility] VITAMIN D 25 [place] (05/10/2023 7:48 AM EST)ComponentValueRef RangeTest Method Analysis TimePerformed AtPathologist SignatureVITAMIN D29.0ng/mLTBHComment: <20 ng/mL Vit D deficient 20-<30 ng/mL Vit D insufficient 30-100 ng/mL ??Vit D sufficient >100 ng/mL Potential Toxicity Specimen (Source)Anatomical Location / LateralityCollection Method / Volume Collection TimeReceived Time05/10/2023 7:48 AM EST05/10/2023 7:51 AM EST Narrative CLINISYNC - 05/10/2023 10:22 AM EST Authorizing ProviderResult TypeResult StatusCorey Jessica DOCLINISYNCFinal Result Performing OrganizationAddressCity/State/ZIP CodePhone Number [facility] * [facility] FERRITIN (05/10/2023 7:48 AM EST)ComponentValueRef RangeTest Method Analysis TimePerformed AtPathologist JubjadqceKFNFSYCK37.08.0 - 252.0 ng/mLTBH Specimen (Source)Anatomical Location / LateralityCollection Method / Volume Collection TimeReceived Time05/10/2023 7:48 AM EST05/10/2023 7:51 AM EST Narrative CLINISYNC - 05/10/2023 10:22 AM EST Authorizing ProviderResult TypeResult StatusCorey Jessica DOCLINISYNCFinal Result Performing OrganizationAddressCity/State/ZIP CodePhone Number [facility] * MLR HEMOGLOBIN A1C (05/10/2023 7:48 AM EST)ComponentValueRef RangeTest Method Analysis TimePerformed AtPathologist SignatureGLYCOHEMOGLOBIN A1C4.94.5 - 6.2 %TBHComment: ADA RECOMMENDED LIMIT 4.0 - 6.0 ADA THERAPEUTIC TARGET < 7.0 ACTION SUGGESTED > 7.0 ESTIMATED AVERAGE LUUIHZL24kf/dLTBHSpecimen (Source)Anatomical Location / LateralityCollection Method / VolumeCollection TimeReceived Time05/10/2023 7:48 AM EST05/10/2023 7:51 AM EST Narrative CLINISYNC - 05/10/2023 9:33 AM EST Authorizing ProviderResult TypeResult StatusCorey Jessica DOCLINISYNCFinal Result Performing OrganizationAddressty/State/[facility] LanierPhone Number [facility] * ALL THYROID STIM HORMONE (05/10/2023 7:48 AM EST)ComponentValueRef RangeTest MethodAnalysis TimePerformed AtPathologist SignatureTHYROID STIMULATING HORMONE1.7350.358 - 3.740 uIU/mLTBHSpecimen (Source)Anatomical Location / LateralityCollection Method / VolumeCollection TimeReceived Time05/10/2023 7:48 AM EST05/10/2023 7:51 AM EST Narrative CLINISYNC - 05/10/2023 9:02 AM EST Authorizing ProviderResult TypeResult StatusCorey Jessica DOCLINISYNCFinal Result Performing OrganizationAddSelect [facility]ty [facility] CodePhone [facility] * ALL THYROXINE (T4) (05/10/2023 7:48 AM EST)ComponentValueRef RangeTest Method Analysis TimePerformed AtPathologist SignatureT4 THYROXINE9.004.80 - 13.90 ug/dLTBHSpecimen (Source)Anatomical Location / LateralityCollection Method / VolumeCollection TimeReceived Time05/10/2023 7:48 AM EST05/10/2023 7:51 AM EST Narrative CLINISYNC - 05/10/2023 9:02 AM EST Authorizing ProviderResult TypeResult StatusCorey Jessica DOCLINISYNCFinal Result Performing OrganizationAddPen[facility] Hospitalty/State/ZIP CodePhone Number [facility] * ALL T3 FREE (05/10/2023 7:48 AM EST)ComponentValueRef RangeTest MethodAnalysis TimePerformed AtPathologist SignatureFREE T32.672.18 - 3.98 pg/mLTBHSpecimen (Source)Anatomical Location / LateralityCollection Method / VolumeCollection TimeReceived Time05/10/2023 7:48 AM EST05/10/2023 7:51 AM EST Narrative CLINISYNC - 05/10/2023 9:02 AM EST Authorizing ProviderResult TypeResult StatusCorey Jessica DOCLINISYNCFinal Result Performing OrganizationAddressCity/State/ZIP CodePhone Number [facility] * [facility] GLUCOSE BLOOD (05/10/2023 7:48 AM EST)ComponentValueRef RangeTest Method Analysis TimePerformed AtPathologist ZpfreydmsVVLTNNF7456 - 106 mg/dLTBH Specimen (Source)Anatomical Location / LateralityCollection Method / Volume Collection TimeReceived Time05/10/2023 7:48 AM EST05/10/2023 7:51 AM EST Narrative CLINISYNC - 05/10/2023 9:02 AM EST Authorizing ProviderResult TypeResult StatusCorey Jessica DOCLINISYNCFinal Result Performing OrganizationAddressCity/State/ZIP CodePhone Number [facility] documented in this encounter Visit Diagnoses Not on filedocumented in this encounter Care Teams Team MemberRelationshipSpecialtyStart DateEnd Date Radha Sanchez MD [address] [place] [phone] PCP - GeneralFamily Medicine12/12/22documented as of this encounter
--- OUTSIDE RECORDS SUMMARY | 2025-02-03 09:04 | XMS_ITS | Encounter Summary ---
Author Organization [facility] Address [address] [place] [address] Care Team Providers Care Automotive Tire Tester Name Role Phone Radha Sanchez MD Primary Care Provider [phone] Encounter Details DateTypeDepartmentCare Team (Latest Contact Info)Dmkzusianod85/20/2024linisync Result Encounter [facility] External Department Unsolicited Sanjeev Lopez, DO [address] [place] [address] Social History Tobacco UseTypesPacks/DayYears UsedDateSmoking Tobacco: NeverSmokeless Tobacco: NeverAlcohol UseStandard Drinks/WeekCommentsNot Currently0 (1 standard drink = 0.6 oz pure alcohol)Alcohol: 1 or 2 drinks on typical day/monthly or less. Caffeine: 1-2 cups/day teaCommentsNoSex and Gender InformationValueDate RecordedSex Assigned at BohglGilvaf67/21/2023 8:59 AM EDTLegal SexFemale 06/15/2022 7:26 PM EDTGender WeotoexpHmcscd93/21/2023 8:59 AM EDTSexual EnkhbytxxrrLvmiagok73/21/2023 8:59 AM EDTdocumented as of this encounter Plan of Treatment DateTypeDepartmentCare Team (Latest Contact Info)Hjhrcboilmo79/08/2025 11:00 AM ESTOffice Visit [facility] [address] [place] [phone] Georgi Carreon, NOE [address] [place] [address] 04/02/2025 10:30 AM ESTOffice Visit [facility] [address] [place] [phone] Tee Carreon DPM [address] [place], [place] [address] 04/18/2025 11:00 AM ESTOffice Visit [facility] [address] [place] [phone] Georgi Carreon DPM [address], [place] [address] 07/29/2025 1:00 PM EDTOffice Visit [facility] [address] [place] [phone] Sanjeev Lopez, [address] [place] [place], [place] [phone] documented as of this encounter Procedures Procedure NamePriorityDate/TimeAssociated DiagnosisCommentsMM POST BIOPSY LT 05/23/2023 2:38 PM EST documented in this encounter Results * MM POST BIOPSY LT (05/23/2023 2:38 PM EST)Anatomical RegionLateralityModality OtherSpecimen (Source)Anatomical Location / LateralityCollection Method / VolumeCollection TimeReceived Time05/23/2023 2:38 PM EST Narrative 05/23/2023 2:39 PM EST [facility] ?[address] ? [place] [address] ? Mammography Report ? Signed ? Patient: JULIA,CHAR D ?MR#: [id number] ?? : 1980 ?Acct:[id number] ?? Age/Sex: 42 / F ?ADM Date: 02/20/24 ?? Loc: MAMMO ? Attending Dr: Sanjeev Garcia.O. ? Ordering Physician: Sanjeev Lopez D.O. ?Results: ? Date of Service: 05/23/23 ?Follow Up: ? Procedure(s): MM post biopsy LT ?? Accession Number(s): [id number] ? cc: Radha Sanchez M.D.; Sanjeev Lopez D.O. ? Patient Name: ? CHAR DUMONT ? MR#: [id number] ? : 1980 ? Exam Date: 05/23/2023 ?? Ordering Doctor: DR Sanjeev Lopez . ? RADIOLOGY REPORT ? PROCEDURE: ? MM POST BIOPSY LT ? COMPARISON: ? MM STEREOTACTIC LOC LT, 05/23/2023. ??MM DIAGNOSTIC MAMMO UNILAT ?? LT, 05/10/2023. ??MM TOMOSYNTHESIS SCREENING BI, 04/28/2023. ??MG MAMM DIAGNOSTIC ?? 3D RAMA CAD, 04/29/2022. ? INDICATIONS: ? density ? BREAST COMPOSITION: ? FINDINGS: ? BIOPSY MARKER: ? A metallic marker has been placed in the targeted location ?? within the lower-inner quadrant of the left breast. ?? BREAST FINDINGS: ?Expected post biopsy findings. ? RECOMMENDATIONS: ? Dictated by: Tee Peterson M.D. on 05/23/2023 at 14:37 ? Approved by: Tee Peterson M.D. on 05/23/2023 at 14:38 ? Dictated By: ?Tee Peterson M.D. ? Signed By: ?05/23/23 1439 ? DD/ 1438 ? TD/TT: ? Cupboard Builder: Procedure Note Radiology, Radiologist, MD - 05/23/[address] [address] Mammography Report Signed Patient: CHAR DUMONT DMR#: [id number] : 1980Acct:[id number] Age/Sex: 42 / FADM Date: 05/23/23 Loc: MAMMO Attending Dr: Sanjeev Lopez D.O. Ordering Physician: Sanjeev Lopez D.O.Results: Date of Service: 05/23/23Follow Up: Procedure(s): MM post biopsy LT Accession Number(s): [id number] cc: Radha Sanchez M.D.; Sanjeev Lopez D.O. Patient Name: CHAR DUMONT MR#: [id number] : 1980 Exam Date: 05/23/2023 Ordering Doctor: [...] Tee Peterson M.D. Signed By:05/23/23 1439 DD/ TD/TT: Cupboard Builder: Authorizing ProviderResult TypeResult StatusCorey Jessica DOCLINISYNC IMAGINGFinal Result documented in this encounter Visit Diagnoses Not on filedocumented in this encounter Care Teams Team MemberRelationshipSpecialtyStart DateEnd Date Radha Sanchez MD [address] [place] [phone] PCP - GeneralFamily Medicine12/12/22documented as of this encounter
--- OUTSIDE RECORDS SUMMARY | 2025-02-03 09:04 | XMS_ITS | Encounter Summary ---
Author Organization [facility] Address [address] [place] [address] Care Team Providers Care Habitat Management Coordinator Name Role Phone Radha Sanchez MD Primary Care Provider [phone] Encounter Details DateTypeDepartmentCare Team (Latest Contact Info)Yvjjwpxfmyw94/14/2024linisync Result Encounter [facility] External Department Unsolicited Sanjeev Lopez, DO [address] [facility] [place] [address] Social History Tobacco UseTypesPacks/DayYears UsedDateSmoking Tobacco: NeverSmokeless Tobacco: NeverAlcohol UseStandard Drinks/WeekCommentsNot Currently0 (1 standard drink = 0.6 oz pure alcohol)Alcohol: 1 or 2 drinks on typical day/monthly or less. Caffeine: 1-2 cups/day teaCommentsNoSex and Gender InformationValueDate RecordedSex Assigned at UjrflJzwizh07/21/2023 8:59 AM EDTLegal SexFemale 06/15/2022 7:26 PM EDTGender FzluwourStxsly68/21/2023 8:59 AM EDTSexual EhpbqqtyewjSloxcicw85/21/2023 8:59 AM EDTdocumented as of this encounter Plan of Treatment DateTypeDepartmentCare Team (Latest Contact Info)Amtdrgsoiwv95/08/2025 11:00 AM ESTOffice Visit [facility] [address] [place] [phone] Georgi Carreon, NOE [address] [place] [address] 04/02/2025 10:30 AM ESTOffice Visit [facility] [address] [place] [phone] Tee Carreon DPM [address] [place], [place] [id number] 04/18/2025 11:00 AM ESTOffice Visit [facility] [address] [place] [phone] Georgi Carreon DPM [address], [place] [address] 07/29/2025 1:00 PM EDTOffice Visit [facility] [address] [facility] [place] [phone] Sanjeev Lopez, DO [address] [facility] [address] [place], [place] [phone] documented as of this encounter Procedures Procedure NamePriorityDate/TimeAssociated DiagnosisCommentsMM TOMOSYNTHESIS DIAGNOSTIC LT11/15/2023 11:25 AM EDT documented in this encounter Results * MM TOMOSYNTHESIS DIAGNOSTIC LT (11/15/2023 11:25 AM EDT)Anatomical Region LateralityModalityOtherSpecimen (Source)Anatomical Location / Laterality Collection Method / VolumeCollection TimeReceived Time11/15/2023 11:25 AM EDT Narrative 11/15/2023 11:26 AM EDT [facility] ?[address] ? [place] [address] ? Mammography Report ? Signed ? Patient: JULIA,CHAR D ?MR#: [id number] ?? : 1980 ?Acct:[id number] ?? Age/Sex: 42 / F ?ADM Date: /14/24 ?? Loc: MAMMO ? Attending Dr: Sanjeev Lopez D.O. ? Ordering Physician: Sanjeev Lopez D.O. ?Results: ? Date of Service: 11/15/23 ?Follow Up: ? Procedure(s): MM tomosynthesis diagnostic LT ?? Accession Number(s): [id number] ? cc: Radha Sanchez M.D.; Sanjeev Lopez D.O. ? Patient Name: ? CHAR DUMONT ? MR#: [id number] ? : 1980 ? Exam Date: 11/15/2023 ?? Ordering Doctor: DR Sanjeev Lopez . ? RADIOLOGY REPORT ? PROCEDURE: ? MM TOMOSYNTHESIS DIAGNOSTIC LT ? COMPARISON: ? MM STEREOTACTIC LOC LT, 05/23/2023. ??MM POST BIOPSY LT, ?? 05/23/2023. ? INDICATIONS: ? Status Post Left Breast Biopsy Z98.890 ? Calculator Name ? NCI Breast Cancer Risk Assessment Tool ?? 5 Year Breast Cancer Risk ? 0.80% ?? Lifetime Breast Cancer Risk ? 11.00% ?? Personal Breast Cancer ?No ?? Personal Ovarian Cancer ? No ?? Treatments ? None ?? Family Cancers ? Grandmother-maternal with stomach cancer at age 65. ? LOCATION: ? [facility] ? BREAST COMPOSITION: ? There are scattered areas of fibroglandular density. ? FINDINGS: ? DIAGNOSTIC CATEGORY 2--BENIGN FINDING. NO CHANGE FROM COMPARISON. ? Stable micro clip marker lower inner quadrant, mid breast. ??No new areas of ?? suspicious calcification, architectural distortion or mass. ? RECOMMENDATIONS: ? ROUTINE MAMMOGRAM AND CLINICAL EVALUATION IN 12 MONTHS. ? PLEASE NOTE: ??A NORMAL MAMMOGRAM DOES NOT EXCLUDE THE POSSIBILITY OF BREAST ?? CANCER. ??A CLINICALLY SUSPICIOUS PALPABLE LUMP SHOULD BE BIOPSIED. ? Dictated by: Mj Silva MD on 11/15/2023 at 11:23 ? Approved by: Mj Silva MD on 11/15/2023 at 11:25 ? Dictated By: ?Mj Silva M.D. ? Signed By: ?11/15/23 1126 ? DD/ 1125 ? TD/TT: ? Manager Configuration: Procedure Note Radiology, Radiologist, MD - 11/15/2023 [place] [address] Mammography Report Signed Patient: CHAR DUMONT DMR#: [id number] : 1980Acct:[id number] Age/Sex: 42 / FADM Date: 11/15/23 Loc: MAMMO Attending Dr: Sanjeev Lopez D.O. Ordering Physician: Sanjeev Lopez D.O.Results: Date of Service: 11/15/23Follow Up: Procedure(s): MM tomosynthesis diagnostic LT Accession Number(s): [id number] cc: Radha Sanchez M.D.; Sanjeev Lopez D.O. Patient Name: CHAR DUMONT MR#: [id number] : 1980 Exam Date: 11/15/2023 Ordering Doctor: [...] stomach cancer at age 67. LOCATION: [facility] BREAST COMPOSITION: There are scattered [...] M.D. Signed By:11/15/23 1126 DD/ 1125 TD/TT: Manager Configuration: Authorizing ProviderResult TypeResult StatusCorey Jessica DOCLINISYNC IMAGINGFinal Result documented in this encounter Visit Diagnoses Not on filedocumented in this encounter Care Teams Team MemberRelationshipSpecialtyStart DateEnd Date Radha Sanchez MD [address] [place] [phone] PCP - GeneralFamily Medicine12/12/22documented as of this encounter
--- OUTSIDE RECORDS SUMMARY | 2025-02-03 09:04 | XMS_ITS | Encounter Summary ---
Author Organization [facility] Address [address] [place] [address] Care Team Providers Care Defective Cigarette Slitter Name Role Phone Radha Sanchez MD Primary Care Provider [phone] Encounter Details DateTypeDepartmentCare Team (Latest Contact Info)Rjquoufyrph65/20/2024linisync Result Encounter [facility] External Department Unsolicited Sanjeev Lopez, DO [address] [facility] [place] [address] Social History Tobacco UseTypesPacks/DayYears UsedDateSmoking Tobacco: NeverSmokeless Tobacco: NeverAlcohol UseStandard Drinks/WeekCommentsNot Currently0 (1 standard drink = 0.6 oz pure alcohol)Alcohol: 1 or 2 drinks on typical day/monthly or less. Caffeine: 1-2 cups/day teaCommentsNoSex and Gender InformationValueDate RecordedSex Assigned at WdlzeMopmwf41/21/2023 8:59 AM EDTLegal SexFemale 06/15/2022 7:26 PM EDTGender UyhssfinPfyrow58/21/2023 8:59 AM EDTSexual KmktjsmhdqkHsaggzwh19/21/2023 8:59 AM EDTdocumented as of this encounter Plan of Treatment DateTypeDepartmentCare Team (Latest Contact Info)Jcvdqvakbqz61/08/2025 11:00 AM ESTOffice Visit [facility] [address] [place] [phone] Georgi Carreon, NOE [address] [place] [address] 04/02/2025 10:30 AM ESTOffice Visit [facility] [address] [place] [phone] Tee Carreon DPM [address] [place], [place] [phone] 04/18/2025 11:00 AM ESTOffice Visit [facility] [address] [place] [address] Georgi Carreon DPM [address], [place] [address] 07/29/2025 1:00 PM EDTOffice Visit [facility] [address] [place] [place] [phone] Sanjeev Lopez, DO [address] [facility] [address] [place], [place] [phone] documented as of this encounter Procedures Procedure NamePriorityDate/TimeAssociated DiagnosisCommentsMM STEREOTACTIC LOC LT05/23/2023 2:37 PM EST documented in this encounter Results * MM STEREOTACTIC LOC LT (05/23/2023 2:37 PM EST)Anatomical RegionLaterality ModalityRadiographic ImagingSpecimen (Source)Anatomical Location / Laterality Collection Method / VolumeCollection TimeReceived Time05/23/2023 2:37 PM EST Narrative 05/23/2023 2:38 PM EST [facility] ?[address] ? [place] [address] ? Mammography Report ? Signed ? Patient: JULIA,CHAR D ?MR#: [id number] ?? : 1980 ?Acct:[id number] ?? Age/Sex: 42 / F ?ADM Date: 02/20/24 ?? Loc: MAMMO ? Attending Dr: Sanjeev Garcia.O. ? Ordering Physician: Sanjeev Lopez D.O. ?Results: ? Date of Service: 05/23/23 ?Follow Up: ? Procedure(s): MM stereotactic loc LT ?? Accession Number(s): [id number] ? cc: Radha Sanchez M.D.; Sanjeev Lopez D.O. ? Patient Name: ? CHAR DUMONT ? MR#: [id number] ? : 1980 ? Exam Date: 05/23/2023 [...] Peterson M.D. on 05/23/2023 at 14:37 ? Dictated By: ?Tee Peterson M.D. ? Signed By: ?05/23/23 1438 ? DD/ 1437 ? TD/TT: ? Encoding Clerk: Procedure Note Radiology, Radiologist, MD - 05/24/2023 [place] [address] Mammography Report Signed Patient: CHAR DUMONT DMR#: [id number] : 1980Acct:[id number] Age/Sex: 42 / FADM Date: 05/23/23 Loc: MAMMO Attending Dr: Sanjeev Lopez D.O. Ordering Physician: Sanjeev Lopez D.O.Results: Date of Service: 05/23/23Follow Up: Procedure(s): MM stereotactic loc LT Accession Number(s): [id number] cc: Radha Sanchez M.D.; Sanjeev Lopez D.O. Patient Name: CHAR DUMONT MR#: [id number] : 1980 Exam Date: 05/23/2023 Ordering Doctor: [...] M.D. Signed By:05/23/23 1438 DD/ 1437 TD/TT: Encoding Clerk: Authorizing ProviderResult TypeResult StatusCorey Jessica DOIMG XR PROCEDURESFinal Result documented in this encounter Visit Diagnoses Not on filedocumented in this encounter Care Teams Team MemberRelationshipSpecialtyStart DateEnd Date Radha Sanchez MD [address] [place] [phone] PCP - GeneralFamily Medicine12/12/22documented as of this encounter
--- OUTSIDE RECORDS SUMMARY | 2025-02-03 09:05 | XMS_ITS | Encounter Summary ---
Author Organization [facility] Address [address] [place] [address] Care Team Providers Care River Rafting Guide Name Role Phone Radha Sanchez MD Primary Care Provider [phone] Encounter Details DateTypeDepartmentCare Team (Latest Contact Info)Btpckdtrgec71/26/2024linisync Result Encounter [facility] External Department Unsolicited Sanjeev Lopez, DO [address] [place] [address] [place] [address] Social History Tobacco UseTypesPacks/DayYears UsedDateSmoking Tobacco: NeverSmokeless Tobacco: NeverAlcohol UseStandard Drinks/WeekCommentsNot Currently0 (1 standard drink = 0.6 oz pure alcohol)Alcohol: 1 or 2 drinks on typical day/monthly or less. Caffeine: 1-2 cups/day teaCommentsNoSex and Gender InformationValueDate RecordedSex Assigned at HbiupXcuhsq01/21/2023 8:59 AM EDTLegal SexFemale 06/15/2022 7:26 PM EDTGender VctqjbznDnuhcm37/21/2023 8:59 AM EDTSexual AtzzlblbqusVrhjuobn55/21/2023 8:59 AM EDTdocumented as of this encounter Plan of Treatment DateTypeDepartmentCare Team (Latest Contact Info)Ozgkazeaoih49/08/2025 11:00 AM ESTOffice Visit [facility] [address] [place] [phone] Georgi Carreon, NOE [address] [place] [address] 04/02/2025 10:30 AM ESTOffice Visit [facility] [address] [place] [address] Tee Carreon DPM [address], [place] [address] 04/18/2025 11:00 AM ESTOffice Visit [facility] [address] [place] [phone] Georgi Carreon DPM [address], [place] [address] 07/29/2025 1:00 PM EDTOffice Visit [facility] [address] [place] [phone] Sanjeev Lopez, DO [address] [facility] [address] [place] [place], [place] [phone] documented as of this encounter Procedures Procedure NamePriorityDate/TimeAssociated DiagnosisCommentsMM TOMOSYNTHESIS SCREENING 04/28/2023 12:44 PM EST documented in this encounter Results * MM TOMOSYNTHESIS SCREENING (04/28/2023 12:44 PM EST)Anatomical Region LateralityModalityOtherSpecimen (Source)Anatomical Location / Laterality Collection Method / VolumeCollection TimeReceived Time04/28/2023 12:44 PM EST Narrative 04/28/2023 12:44 PM EST [facility] ?[address] ? [place] [address] ? Mammography Report ? Signed ? Patient: JULIA,CHAR D ?MR#: [id number] ?? : 1980 ?Acct:[id number] ?? Age/Sex: 42 / F ?ADM Date: /26/24 ?? Loc: MAMMO ? Attending Dr: Sanjeev Garcia.O. ? Ordering Physician: Sanjeev Lopez D.O. ?Results: ? Date of Service: 04/28/23 ?Follow Up: ? Procedure(s): MM tomosynthesis screening BI ?? Accession Number(s): [id number] ? cc: Radha Sanchez M.D.; Sanjeev Lopez D.O. ? Patient Name: ? CHAR DUMONT ? MR#: [id number] ? : 1980 ? Exam Date: 04/28/2023 ?? Ordering Doctor: DR Sanjeev Lopez . ? RADIOLOGY REPORT ? PROCEDURE: ? MM TOMOSYNTHESIS SCREENING BI ? COMPARISON: ? [facility] DIAGNOSTIC 3D RAMA CAD, 04/29/2022. ? INDICATIONS: ? Screening ? Calculator Name ? NCI Breast Cancer Risk Assessment Tool ?? 5 Year Breast Cancer Risk ? 0.50% ?? Lifetime Breast Cancer Risk ? 9.00% ?? Personal Breast Cancer ?No ?? Personal Ovarian Cancer ? No ?? Treatments ? None ?? Family Cancers ? Grandmother-maternal with stomach cancer at age 65. ? LOCATION: ? [facility] ? BREAST COMPOSITION: ? Scattered areas fibroglandular density. ? FINDINGS: ? DIAGNOSTIC CATEGORY 0--INCOMPLETE: NEED ADDITIONAL IMAGING EVALUATION. ? The breasts are stable in overall size and fibroglandular ?? configuration.Scattered benign-appearing lymph nodes are present. ??Scattered ?? benign-appearing calcifications are present. ? RIGHT BREAST: ??No significant suspicious finding. ? LEFT BREAST: ??New 1.1 x 0.8 cm area of focal asymmetry lower inner quadrant, 7 ?? o'clock position, mid to posterior breast. ??Spot compression and ultrasound ?? follow-up is recommended. ? RECOMMENDATIONS: ? ADDITIONAL MAMMOGRAPHIC VIEWS REQUIRED: LEFT BREAST - spot compression ? ULTRASOUND: LEFT BREAST ? PLEASE NOTE: ??A NORMAL MAMMOGRAM DOES NOT EXCLUDE THE POSSIBILITY OF BREAST ?? CANCER. ??A CLINICALLY SUSPICIOUS PALPABLE LUMP SHOULD BE BIOPSIED. ? Dictated by: Mj Silva MD on 04/28/2023 at 12:41 ? Approved by: Mj Silva MD on 04/28/2023 at 12:43 ? Dictated By: ?Mj Silva M.D. ? Signed By: ?04/28/23 1244 ? DD/ 1244 ? TD/TT: ? Auto Body Repairer Fiberglass: Procedure Note Radiology, Radiologist, - 04/28/2023 [place] [address] Mammography Report Signed Patient: CHAR DUMONT DMR#: [id number] : 1980Acct:[id number] Age/Sex: 42 / FADM Date: 04/28/23 Loc: MAMMO Attending Dr: Sanjeev Lopez D.O. Ordering Physician: Sanjeev Lopez D.O.Results: Date of Service: 04/28/23Follow Up: Procedure(s): MM tomosynthesis screening BI Accession Number(s): [id number] cc: Radha Sanchez M.D.; Sanjeev Lopez D.O. Patient Name: CHAR DUMONT MR#: [id number] : 1980 Exam Date: 04/28/2023 Ordering Doctor: [...] stomach cancer at age 67. LOCATION: [facility] BREAST COMPOSITION: Scattered areas fibroglandular density. [...] M.D. Signed By:04/28/23 1244 DD/ 1244 TD/TT: Auto Body Repairer Fiberglass: Authorizing ProviderResult TypeResult StatusCorey Jessica DOCLINISYNC IMAGINGFinal Result documented in this encounter Visit Diagnoses Not on filedocumented in this encounter Care Teams Team MemberRelationshipSpecialtyStart [place] [address] [place] [phone] PCP - GeneralFamily Medicine12/12/22documented as of this encounter
--- OUTSIDE RECORDS SUMMARY | 2025-02-03 09:05 | XMS_ITS | Encounter Summary ---
Author Organization [facility] Address [address] [place] [address] Care Team Providers Care Film Sorter Name Role Phone Radha Sanchez MD Primary Care Provider [phone] Encounter Details DateTypeDepartmentCare Team (Latest Contact Info)Ojmyimeexdt19/22/2025Travel Social History Tobacco UseTypesPacks/DayYears UsedDateSmoking Tobacco: NeverSmokeless Tobacco: NeverAlcohol UseStandard Drinks/WeekCommentsNot Currently0 (1 standard drink = 0.6 oz pure alcohol)Alcohol: 1 or 2 drinks on typical day/monthly or less. Caffeine: 1-2 cups/day teaCommentsNoSex and Gender InformationValueDate RecordedSex Assigned at HkbahVyojfq93/21/2023 8:59 AM EDTLegal SexFemale 06/15/2022 7:26 PM EDTGender HbloamvlBtcxiu14/21/2023 8:59 AM EDTSexual IycsemrigitJudgitzu71/21/2023 8:59 AM EDTdocumented as of this encounter Plan of Treatment DateTypeDelittle river memorial hospitalCare Team (Latest Contact Info)Skakkjlawwj45/08/2025 11:00 AM ESTOffice Visit [facility] [address] [place] [address] Georgi Carreon DPM [address] [place] [address] 04/02/2025 10:30 AM ESTOffice Visit [facility] [address] [place] [address] Tee Carreon, DPM [address] [place], [place] [address] 04/18/2025 11:00 AM ESTOffice Visit [facility] [address] [place] [phone] Georgi Carreon, DPM [address] [place], [place] [address] 07/29/2025 1:00 PM EDTOffice Visit [facility] [address] [facility] [address] [place] [address] Sanjeev Lopez DO [address] [place], [place] [address] documented as of this encounter Visit Diagnoses Not on filedocumented in this encounter Care Teams Team MemberRelationshipSpecialtyStart DateEnd Date Radha Sanchez MD [address] [facility] [place] [phone] PCP - GeneralFamily Medicine12/12/22documented as of this encounter
[2025-02-03 10:26] LABS: Free T3 2.37 pg/mL (2.18-3.98); Glucose 81 mg/dL (74-106); Thyroid Stimulating Hormone 3.105 uIU/mL (0.358-3.740)
[2025-02-03 10:46] LABS: Ferritin 62.0 ng/mL (8.0-252.0)
== END 2025-02-03 09:03 | disposition home or self-care (01) ==
LOC: LAB 09:02
PROVIDERS: PCP Family Medicine; Visit Provider Obstetrics & Gynecology
DX: E34.9 Endocrine disorder, unspecified (principal); E88.819 Insulin resistance, unspecified; R63.5 Abnormal weight gain
CPT/HCPCS: 36415; 82530; 82679; 82728; 82947; 83036; 83525; 84432; 84436; 84439; 84443; 84481; 84681

== ENCOUNTER 2025-02-03 09:15 | Outpatient (OUT) | payer BC, SELFPAY ==
--- OUTSIDE RECORDS SUMMARY | 2025-02-03 09:17 | XMS_ITS | Clinical Summary ---
Author Organization [employer] Address [address] [place] [address] Care Team Providers Care Saddle And Side Wire Stitcher Name Role Phone Unavailable Primary Care Provider Unavailabl e Allergies Active AllergyReactionsCriticalityNoted DateCommentsTopiramateSwellingLow 12/19/2013 Medications MedicationSigDispense QuantityRefillsLast FilledStart DateEnd DateStatus levonorgestrel IUD (MIRENA) 20 mcg/24 hour (5 years) IUD 1 each by Intrauterine route once. Inserted ctive Active Problems ProblemNoted DateDiagnosed DatePolycystic ovarian jxoltmot01/11/2014Obesity 10/11/2013Irritable bowel plkjuvey31/11/6870Iwyjghetu31/11/2014Migraines 10/11/2013Myalgia and rxuvcjck97/06/2013 Resolved Problems ProblemNoted DateDiagnosed DateResolved DatePolycystic lsfhvil0802/06/2013 12/19/20136985Prnsfnxe30 Family History Medical HistoryRelationCommentsDepressionFatherRelationStatusCommentsFather Social History Tobacco UseTypesPacks/DayYears UsedDateSmoking Tobacco: NeverAlcohol UseStandard Drinks/WeekCommentsNo0 (1 standard drink = 0.6 oz pure alcohol)Comments NoSex and Gender InformationValueDate RecordedSex Assigned at BirthNot on file Legal GpoQjatfi61/11/2014 4:06 PM EDTGender IdentityNot on fileSexual OrientationNot on file Last Filed Vital Signs Vital SignReadingTime TakenCommentsBlood Foyjzuxm343/7003 11:12 AM EST Fmmvs2600 2:56 PM YKATkojogvltzb19.7 ??C (99.9 ??F)06/04/2014 11:12 AM ESTRespiratory Rate--Oxygen Saturation--Inhaled Oxygen Concentration--Weight 128.3 kg (282 lb 12.8 oz)06/04/2014 11:12 AM NVPKytdnh458.1 cm (5' 5 )06/04/2014 11:12 AM ESTBody Mass Index47.0606/04/2014 11:12 AM EST Plan of Treatment Health MaintenanceDue DateLast HfnlRythxmtkCmaitmets01/30/1983Hepatitis B Vaccines (1 of 3 - 19+ 3-dose series)11/30/20016959Aaxbzaa-Tgxkcuacqa-Gmwwndjak Vaccines (1 - Tdap)2001Pap Smear10/11/, 07/29/2008Cervical Cancer Hyapttoyf93/11/2019Pap + HPV zzLzvtrif03Influenza Vaccine(s) (#1)2024Shingles Vaccine (Non-Medicare; Age 50+ or All Ages Risk Series) (1 of 2)2032RSV for patients and patients 60yrs or older (1 - 1-dose 75+ series)2057Hib VaccinesAged OutNo longer eligible based on patient's age to complete this topicMeningococcal (MCV4) VaccinesAged OutNo longer eligible based on patient's age to complete this topicPneumococcal Vaccine (Pediatric Routine or All Ages Risk Series)Aged OutNo longer eligible based on patient's age to complete this topic Procedures Procedure NamePriorityDate/TimeAssociated DiagnosisCommentsFWML COTESTING: PAP + HPV POOL AND 16/18 GENOTYPING FOR WOMEN > OR = 30 YRS RWGCoplxny78/11/2014 12:00 AM EDT Well woman exam with routine gynecological exam Cervical cancer screening from Last 3 Months or Most Recently Relevant to Health Maintenance Results * FWML PAP + HPV High Risk Pool and 16/18 Genotyping (SL9741) (10/11/2013 12:00 AM EDT)ComponentValueRef RangeTest MethodAnalysis TimePerformed AtPathologist SignatureFWML PapsmearSEE [employer] Comment: [id number] Source: Cervical/Vaginal/Endocervical Testing/Results: Sent for HPV High Risk Pool and Brittani 16/18 Testing Clinical History: LMP: ??6//14. ??IUD. ?? Test/Results: Negative for intraepithelial Lesions or Malignancy Electronically Signed By: HARRY RAMIREZ (ASCP) Comments: This specimen was screened by an FDA approved automated imaging system along with an additional manual rescreening by a drying and winding supervisor and/or pathologist. Adequacy: Specimen is adequately prepared and documented. No endocervical cells present [facility] DNA (High/Low risk) GenotypingSEE BELOWREHOBOTH [employer] CHRISTIANA HOSPITALComment: [id number] Results: Specimen: ??Thin Prep Results: ?HPV 16: ??NEGATIVE ?HPV 18: ??NEGATIVE ?Other high risk HPV genotype pool: ??NEGATIVE ? Test Indication: To aid in the diagnosis of sexually transmitted HPV infections with HPV types 16 and 18 and a pool of other high risk HPV genotypes. The pool of high risk HPV genotypes include: HPV ??31,33,35,39,45,51,52,56,58,59,66, and 68. HPV 16 and 18 are [...] Genomic DNA was extracted by standard methods. ??Probes of high risk HPV 16, 18 and twelve other types are used for detection of HPV with the Skylar Farideh 4800 HPV molecular assay. This test is performed at [facility], [address] [place] [address]. This test was developed and its performance characteristics determined by [facility] as a self-validated assay for SurePath and Thin Prep pap specimens. ?? It is approved by the U.S. Food and Drug Administration for ThinPrep. ??This test has not been approved by the FDA or validated by [facility] anal paps or urethra swabs. Electronically Signed By: FREEMAN Specimen (Source)Anatomical Location / LateralityCollection Method / Volume Collection TimeReceived HcvnCipww22 Narrative Authorizing ProviderResult TypeResult StatusCinrosana Mason NP PATHOLOGY/CYTOLOGY ORDERABLESFinal ResultPerforming OrganizationAddress City/State/ZIP CodePhone Number [facility] [address] [place] [address] from Last 3 Months or Most Recently Relevant to Health Maintenance Insurance [facility] Address: [facility] [address] [place] [address]
--- OUTSIDE RECORDS SUMMARY | 2025-02-03 09:19 | XMS_ITS | Clinical Summary ---
Author Organization Kior tem Address [facility] [id number] [address] [place] [address] Care Team Providers Care Classified Advertising Clerk Name Role Phone Radha Sanchez MD Primary Care Provider [phone] Allergies Active AllergyReactionsCriticalityNoted MkvwRqyvljshWjkcsmgrMidwClokch39/24/2024 Pt states allergic to paper tape TopiramateSwelling,Other (See Comments)Low12/19/2013 Medications * This document contains information received from the source organization and may not represent a complete record from that organization. MedicationSigDispense QuantityRefillsLast FilledStart DateEnd DateStatus ondansetron ODT (ZOFRAN ODT) 4 mg disintegrating tablet Dissolve 1 tablet (4 mg total) on tongue every 8 (eight) hours as needed for nausea or vomiting. 30 tablet 4Active losartan (COZAAR) 100 mg tablet Take 1 tablet (100 mg total) by mouth in the morning.5Active metoprolol succinate XL (TOPROL XL) 50 mg 24 hr tablet Take 1 tablet (50 mg total) by mouth.5Active BD ALCOHOL SWABS pads, medicated 03/28/2024ctive ONETOUCH VERIO TEST STRIPS strip 5Active ONETOUCH DELICA PLUS LANCET 33 gauge misc 5Active amLODIPine (NORVASC) 5 mg tablet Take 2 tablets (10 mg total) by mouth in the morning.6Active nhurcwxtkazo-xrx-yjky-FA-vit K 18 mg iron-400 mcg-25 mcg tablet Take by mouth.Active magnesium oxide (MAGOX) 400 mg tablet Take 1 tablet (400 mg total) by mouth nightly.Active cholecalciferol, vitamin D3, 5,000 units tablet Take 1 tablet (5,000 Units total) by mouth in the morning.Active hydrOXYzine (ATARAX) 25 mg tablet Indications:Generalized anxiety disorderTake 1 tablet (25 mg total) by mouth 4 (four) times a day as needed for anxiety (or sleep). 120 tablet 5Active viloxazine (QELBREE) 200 mg capsule,extended release 24hr Indications:Attention deficit hyperactivity disorder (ADHD), predominantly inattentive typeTake 400 mg by mouth in the morning. 60 capsule 505Active viloxazine (QELBREE) 200 mg capsule,extended release 24hr Indications:ADHD (attention deficit hyperactivity disorder), inattentive type Take two 200 mg capsules (400 mg total) in the morning by mouth. 63 capsule 5Active lisdexamfetamine (VYVANSE) 40 mg capsule Indications:Attention deficit hyperactivity disorder (ADHD), predominantly inattentive typeTake 1 capsule (40 mg total) by mouth every morning. Max Daily Amount: 40 mg 30 capsule 5Active tirzepatide (MOUNJARO) 12.5 mg/0.5 mL pen injector Inject 12.5 mg under the skin every 7 days.Active gelatin, empty no. 00, capsule Compound medication for grvleqxffcqm50Discontinued(Patient Stopped On Own) tirzepatide (MOUNJARO) 2.5 mg/0.5 mL pen injector Inject 2.5 mg under the skin every 7 days. Gfuatzy4101/15/2025Discontinued aspirin 325 mg tablet Take 1 tablet (325 mg total) by mouth in the morning.01/15/2025Discontinued (Patient Stopped On Own) Active Problems ProblemNoted DateDiagnosed DatePanniculitis affecting back01/25/2024Generalized anxiety /02/2024ttention deficit hyperactivity disorder (ADHD), predominantly inattentive type11/22/2023Mallet deformity of right ring finger 05/16/2023reast pain10/06/2022Frequent nopvymgzf62/06/2023Hallux valgus (acquired), left foot10/06/2022Insulin kzvnifopsd21/06/2023Labial cyst10/06/2022 Xjhukbadhvc75/06/2023olycystic aplluuz8110/06/2022Weight gain10/06/2022History of multiple oynvhuprobvn42/31/9847Htxoebeicr56/31/2022Neurogenic ivufrmn3112/01/2021 Psychophysiological xonkgoyu28/31/2022Migraine without aura and without status migrainosus, not atjvtvjedle36/31/2022Vitamin B12 vjgpglhaba11/31/2022DDD (degenerative disc disease), qychrc052Decreased movements in third zhxnbicve54/06/2020History of PCOS01/24/2017Class 3 obesity in adult01/24/2017 Insulin controlled gestational diabetes mellitus (GDM) in second trimester 01/24/2017BMI 45.0-49.9, adult10/17/2016History of spontaneous 09/05/2016History of coszarlt92/05/2017 Encounters * This document contains information received from the source organization and may not represent a complete record from that organization. DateTypeDepartmentCare WbenZzkhgmaqzyr27/15/6534Bthdiu57/03/2025Orders Only [facility] [address] [place] [address] [place] [address] Jo Meyer APRN-RASHAUN 11/05/2024Orders Only [facility] [address] [place] [address] Jo Meyer, TAPE CALENDER-QUALITY CONTROL INDUSTRIAL ENGINEER from Last 3 Months Family History Medical HistoryRelationNameCommentsCancerMaternal GrandfatherstomachHeart attack Maternal GrandfatherHeart diseaseMaternal GrandfatherHypertensionMaternal GrandfatherStrokeMaternal GrandfatherThyroid diseaseMaternal Grandfather Alzheimer's diseaseMaternal GrandmotherHypertensionMaternal GrandmotherIrritable bowel syndromeMaternal GrandmotherIrritable bowel syndromeMotherThyroid disease MotherRelationNameStatusCommentsFatherAliveMaternal GrandfatherDeceasedMaternal GrandmotherDeceasedMotherAlive Social History Tobacco UseTypesPacks/DayYears UsedDateSmoking Tobacco: NeverSmokeless Tobacco: Never Tobacco Cessation:Counseling Given: Not Answered Alcohol UseStandard Drinks/WeekCommentsNo0 (1 standard drink = 0.6 oz pure alcohol)[facility] UtilitiesAnswerDate RecordedIn the past 12 months has the electric, gas, oil, or water company threatened to shut off services in your home?No 01/26/2024HQ-2AnswerDate RecordedTotal Nexav8582PRAPARE - Transportation AnswerDate RecordedIn the past 12 months, has lack of transportation kept you from medical appointments or from getting medications?No01/26/2024In the past 12 months, has lack of transportation kept you from meetings, work, or from getting things needed for daily living?No01/26/2024Housing InstabilityAnswerDate RecordedAre you worried or concerned that in the next two months you may not have stable housing that you own, rent or stay in as a part of a household?No 01/26/2024hildcareAnswerDate BcqrtmqeVmrxevouwBcmvkpu93/12/2019EmploymentAnswer Date SmrxugbkFcifhoaefrVtdxklu19/12/2019Hunger ScreeningAnswerDate Recorded Within the past 12 months we worried whether our food would run out before we got money to buy more.Never True10/21/2024Within the past 12 months the food we bought just didn't last and we didn't have money to get more.Never True 10/21/2024Purpose - LifeAnswerDate RecordedPurpose and direction in lifeUnknown 1CommentsNoSex and Gender InformationValueDate RecordedSex Assigned at BirthNot on fileLegal GkpYigyuf87/06/2015 12:08 PM EDTGender IdentityNot on fileSexual OrientationNot on file Last Filed Vital Signs Vital SignReadingTime TakenCommentsBlood Cxjdqkfb915/9010 3:52 PM EDT Mmodv47177 3:52 PM WQVUjeomdhvrll11.8 ??C (98.2 ??F)08/08/2024 10:20 AM EDTRespiratory Fwni886908/08/2024 10:50 AM EDTOxygen Mvthilkuys79%08/08/2024 10:50 AM EDTInhaled Oxygen Concentration--Rjqbgy70.2 kg (190 lb)08/08/2024 6:45 AM EDT Rfuwzz593.1 cm (5' 5 )08/08/2024 6:45 AM EDTBody Mass Index31.62008/08/2024 6:45 AM EDT Plan of Treatment Health MaintenanceDue DateLast DoneCommentsDepression Zcmxefmfz64/30/1995Adult BMI Follow Up Plan2000DTaP,Tdap and Td Vaccines (1 - Tdap)2001 Influenza Kqpvzzk2012/02/2024dult BMI Qadcrrvxg61Tobacco Zfiarrzba06Pap Smear Goals GoalPatient Goal TypeAssociated ProblemsRecent ProgressPatient-Stated?Author have better pain control Azeb Harry, ELVIS Note: Evaluation of progress towards goal: johns removal; pain management Medical Devices ImplantedTypeAreaManufacturerDevice IdentifierShelf Expiration DateModel / Serial / LotStaple [id number] Str Grt Wht Jaws Ntnl Bn Rpl [id number] - Sna - [id number] Implanted:Qty: 1 on [facility]08[facility]20[facility] Im[facility]Left: FootPARAGON 28 10/15/2028 [id number] / NA / [id number] [id number] Str Grt Wht Jaws Ntnl Bn Rpl [id number] - Sna - [id number] Implanted:Qty: 1 on 08/08/2024 [facility] ImplantLeft: FootPARAGON 28 05/31/2028 [id number] / NA / [id number] Bn 13mm 2mm Bite Mnstr St Ns - Sna - [id number] Implanted:Qty: 1 on 08/08/20[facility] FootPARAGON 28 [id number] / NA / NAScrew Bn 10mm 2mm Hd Mn-Mnstr St Ns - [id number] Implanted:Qty: 2 on 08/08/2024 [facility] FootPARAGON 28 [id number] / / ExplantedTypeAreaManufacturerDevice IdentifierShelf Expiration DateModel / Serial / LotWire Fx Krsh 1.6mm 100mm 1 End Troc Tip Smth - [id number] Explanted:Qty: 4 on 08/08/2024 at [facility] ImplantLeft: FootPARAGON 28 [id number] / / Wire Fx Krsh 1.6mm 150mm 1 End Troc Tip Smth Rpl [id number] - [id number] Explanted:Qty: 1 on 08/08/2024 at [facility] ImplantLeft: FootPARAGON 28 [id number] / / Wire Fx Krsh .9mm 150mm 1 End Troc Pnt Smth Ns - [id number] Explanted:Qty: 2 on 08/08/2024 by Georgi Carreon DPM at [facility] ImplantLeft: FootPARAGON 28 [id number] / / Guidewire Orth 1.6mm 150mm 2 Blnt Smth - [id number] Explanted:Qty: 1 on 08/08/2024 at [facility] ImplantLeft: FootPARAGON 28 [id number] / / Screw Bn 12mm 2mm Hd Mn-Mnstr St Ns - Sna - [id number] Explanted:Qty: 1 on 08/08/2024 [facility] FootPARAGON 28 [id number] / NA / NA Insurance Advance Directives * Full Code (Latest Code Status on File) Date ActivatedDate TahhighbavgJncvexwu72/24/2024 2:30 01/26/2024 2:17 PM Care Teams Team MemberRelationshipSpecialtyStart DateEnd Date Radha Sanchez MD [facility] [place] [address] PCP - Tkhvrui33/11/23
--- NOTE | 2025-02-03 09:30 | MR_ITS ---
The [address] [address] Patient Name: CHAR ANN MRN: [id number] date: 1980 Sex: F Assigned Patient Location: MRI Current Patient Location: MRI Accession/Order Number: [id number] Exam Date: 02/03/2025 09:35 Report Date: 02/03/2025 20:44 At the request of: DENNIS SORIA NP Procedure: MR lumbar spine wo con MR lumbar spine wo con 02/03/2025 10:06 AM SIGNS AND SYMPTOMS: Chronic low back pain with radiculopathy bilaterally PROTOCOL: Multiplanar multisequence MR images of the lumbar spine without IV contrast COMPARISON: None. FINDINGS: The bones of the lumbar spine are in anatomic alignment. There is preservation of vertebral body heights. There is disc desiccation and mild disc height loss at L4-5 with a T2 hyperintense central annular fissure. There is moderate disc height loss with Modic type II fatty endplate degenerative change at L5-S1. The conus terminates at the superior endplate of the L2 vertebral body level. No epidural or paraspinous fluid collection is appreciated. At T12-L1: There is a normal disc, central canal, and neural foramen. At L1-L2: There is a normal disc, central canal, and neural foramen. At L2-L3: There is a normal disc, central canal, and neural foramen. At L3-L4: Facet degenerative changes are present without significant spinal canal or neural foraminal narrowing. At L4-L5: There is a broad-based disc bulge with facet hypertrophy. There is mild spinal canal stenosis with no significant neural foraminal narrowing. At L5-S1: There is a circumferential disc bulge with a left central disc extrusion with mild caudal migration. There is mass effect on the traversing left S1 nerve roots with bkjm-xw-lkbfgiga spinal canal stenosis. There is endplate osteophyte formation contributing to moderate left and mild right neural foraminal narrowing. MR/MR lumbar spine wo con IMPRESSION: At L5-S1: There is a circumferential disc bulge with a left central disc extrusion with mild caudal migration. There is mass effect on the traversing left S1 nerve roots with fwne-kv-pcgmging spinal canal stenosis. There is endplate osteophyte formation contributing to moderate left and mild right neural foraminal narrowing. Lesser degrees of degenerative changes are noted as above. Impression dictated by: Royal Whelan M.D. 02/03/2025 8:44 PM Dictation Location: [place] [address] Electronically authenticated by: [id number] Y Date: 02/03/2025 20:44
== END 2025-02-03 09:16 | disposition home or self-care (01) ==
LOC: MRI 09:15
PROVIDERS: PCP Family Medicine; Visit Provider Nurse Practitioner
DX: M48.062 Spinal stenosis, lumbar region with neurogenic claudication (principal); E34.9 Endocrine disorder, unspecified; E88.819 Insulin resistance, unspecified; R63.5 Abnormal weight gain
CPT/HCPCS: 36415; 72148; 82530; 82679; 82728; 82947; 83036; 83525; 84432; 84436; 84439; 84443; 84481; 84681

== ENCOUNTER 2025-02-05 08:33 | Outpatient (OUT) | payer BC, SELFPAY ==
--- OUTSIDE RECORDS SUMMARY | 2024-04-24 05:15 | XMS_ITS ---
Author Organization The [facility] in [place] Address [address] [place] [address] Care Team Providers Care Bellhop Service Captain Name Role Phone Radha Sanchez Primary Care Provider Kaleb Mcgee [phone] REASON FOR VISIT 2 week f/u panniculectomy 01/2024 Encounters Encounter Location Date Provider Diagnosis [facility] [address] [address] 04/24/2024 Kaleb Price Plan Of Treatment No Information Progress Notes * Karuna DUMONT DDOB:[birth year] (44 yo F)Acc No.[id number]:04/24/2024 UNLOCKED PROGRESS NOTE Patient:?Karuna DUMONT :?Kaleb Price, DODOB:1980???Age: 43 Y???Sex:FemaleDate:04/24/2024Phone:[phone]:[address] [place], [id number]:Radha Sanchez Subjective: * Chief Complaints: * 1 . 2 week f/u panniculectomy 01/2024. * Medical History: Objective: * Vitals: Assessment: Plan: * Treatment: * * Electronic signature of Kaleb Price DO on 02/05/2025 at 08:37 AM ESTSign off status: PendingVisit Status:?R/S (Rescheduled) * Provider: Chelo Price DO Date: 0 04/24/2024 Generated for Printing/Faxing/eTransmitting on:?02/05/2025 08:37 AM EST
--- OUTSIDE RECORDS SUMMARY | 2024-05-14 06:00 | XMS_ITS ---
Author Organization The [facility] in [place] Address [address] [place] [address] Care Team Providers Care Fire Support Specialist Name Role Phone Radha Sanchez Primary Care Provider Kaleb Mcgee Unavailable [phone] REASON FOR VISIT S/P RAMA Breast Biopsies Encounters Encounter Location Date Provider Diagnosis The [address] [address] 05/14/2024 Kaleb Price Plan Of Treatment No Information Progress Notes * Karuna DUMONT DDOB:[birth year] (44 yo F)Acc No.[id number]:05/14/2024 UNLOCKED PROGRESS NOTE Patient:?MARISSAKaruna PARSONS :?Kaleb Price, DODOB:1980???Age: 43 Y???Sex:FemaleDate:05/14/2024Phone:[phone]:[address], [place]Raa:Radha Sanchez Subjective: * Chief Complaints: * 1 . S/P RAMA Breast Biopsies. * Medical History: Objective: * Vitals: Assessment: Plan: * Treatment: * * Electronic signature of Kaleb Price DO on 02/05/2025 at 08:36 AM ESTSign off status: PendingVisit Status:?CANC (Cancelled) * Provider: Chelo Price DO Date: 0 05/14/2024 Generated for Printing/Faxing/eTransmitting on:?02/05/2025 08:36 AM EST
--- OUTSIDE RECORDS SUMMARY | 2025-01-29 08:00 | XMS_ITS | Encounter Summary ---
Author Organization [facility] Address [address] [place] [address] Care Team Providers Care Customer Service Clerk Name Role Phone Radha Sanchez MD Primary Care Provider [phone] Reason for Visit * ReasonCommentsPost-opEstablished patient presents today for 3 month post op check for the left foot. Patient reports doing well, no concerns. Encounter Details DateTypeDepartmentCare Team (Latest Contact Info)Szmmzummujh61/29/2025 9:00 AM EDTOffice Visit [facility] [address] [place] [phone] Georgi Carreon, DPM [address] [place], [place] [phone] S/P foot surgery (Primary Dx); Deformity of [...] teaCommentsNoSex and Gender InformationValueDate RecordedSex Assigned at KztuhDdfxio72/21/2023 8:59 AM EDTLegal QpjLaqahs64/15/2023 7:26 PM EDTGender DmyawsnfFsndak28/21/2023 8:59 AM EDTSexual OrientationStraight 09/21/2022 8:59 AM EDTdocumented as of this encounter Last Filed Vital Signs Vital SignReadingTime TakenCommentsBlood Pressure--Pulse--Temperature-- Respiratory Rate--Oxygen Saturation--Inhaled Oxygen Concentration--Imnxzc25.2 kg (190 lb)01/29/2025 9:00 AM UWQTdqyzv546.1 cm (5' 5 )01/29/2025 9:00 AM EDTBody [...] Morbid obesity with BMI of 45.0-49.9, adult ([facility]) PCOS (polycystic ovarian syndrome) Pre-diabetes Rectal bleeding [...] the morning., Disp: , Rfl: glucose blood (PowerVisionuch Verio) test strip, Use as instructed, Disp: 100 each, Rfl: 3 Lancets (RocketboomTouch Delica Plus Njnsux34V) mis, , Disp: , Rfl: losartan (Cozaar) [...] and instructions. TodayI spent 30 minutes in dleo-xn-dgvt discussion with the patient as well as [...] Plan of Treatment DateTypeDepartmentCare Team (Latest Contact Info)Fcchuhuqmep07/08/2025 11:00 AM ESTOffice Visit [facility] [address] [place] [address] Georgi Carreon DPM [address] [place] [address] 04/02/2025 10:30 AM ESTOffice Visit [facility] [address] [place] [phone] Tee Carreon DPM [address] [place], [place] [id number] 04/18/2025 11:00 AM ESTOffice Visit [facility] [address] [place] [phone] Georgi Carreon, DP [address] [place], [place] [id number] 07/29/2025 1:00 PM EDTOffice Visit [facility] [address] [place] [address] Sanjeev Lopez, [address] [place], [place] [id number] documented as of this encounter Procedures Procedure NamePriorityDate/TimeAssociated DiagnosisCommentsXR FOOT 3+ VIEWS LEFT Bhvyhgn9701/29/2025 9:23 AM EDT S/P foot surgery documented [...] DateEnd Date Radha Sanchez MD [address] [place] [address] PCP - GeneralFamily Medicine12/12/22documented as of this encounter
--- OUTSIDE RECORDS SUMMARY | 2025-01-29 08:25 | XMS_ITS | Encounter Summary ---
Author Organization [facility] Address [address] [place] [address] Care Team Providers Care Grant Writer Name Role Phone Radha Sanchez MD Primary Care Provider [phone] Encounter Details DateTypeDepartmentCare Team (Latest Contact Info)Kjycycqgzek02/29/2025 9:25 AM EDTAncillary Procedure [facility] [address] [place] [address] Social History Tobacco UseTypesPacks/DayYears UsedDateSmoking Tobacco: NeverSmokeless Tobacco: NeverAlcohol UseStandard Drinks/WeekCommentsNot Currently0 (1 standard drink = 0.6 oz pure alcohol)Alcohol: 1 or 2 drinks on typical day/monthly or less. Caffeine: 1-2 cups/day teaCommentsNoSex and Gender InformationValueDate RecordedSex Assigned at DfgjaTkdaxk24/21/2023 8:59 AM EDTLegal SexFemale 06/15/2022 7:26 PM EDTGender JhshwhtjOtqlnv56/21/2023 8:59 AM EDTSexual GxjnjcjqhljBkcixgvf62/21/2023 8:59 AM EDTdocumented as of this encounter Plan of Treatment DateTypeDepartmentCare Team (Latest Contact Info)Xmxxczhmzub96/08/2025 11:00 AM ESTOffice Visit [facility] [address] [place] [phone] Georgi Carreon, DPM [address] [place] [place], [place] [address] 04/02/2025 10:30 AM ESTOffice Visit [facility] [address] [place] [address] Tee Carreon DPM [address] [place], [place] [id number] 04/18/2025 11:00 AM ESTOffice Visit [facility] [address] [place] [phone] Georgi Carreon DPM [address] [place], [place] [address] 07/29/2025 1:00 PM EDTOffice Visit [facility] [address] [place] [phone] Sanjeev Lopez DO [address] [facility] [place] [address] documented as of this encounter Procedures Procedure NamePriorityDate/TimeAssociated DiagnosisCommentsXR FOOT 3+ VIEWS LEFT Ppgrpos3201/29/2025 9:23 AM EDT S/P foot surgery documented [...] or dislocations. ?? Authorizing ProviderResult TypeResult StatusAnthmomo Carreon DPMIMG XR PROCEDURESFinal Result documented in this encounter Visit Diagnoses Not on filedocumented in this encounter Care Teams Team MemberRelationshipSpecialtyStart DateEnd Date Radha Sanchez MD [address] [place] [address] PCP - GeneralFamily Medicine12/12/22documented as of this encounter
--- OUTSIDE RECORDS SUMMARY | 2025-02-05 08:36 | XMS_ITS | Encounter Summary ---
Author Organization [facility] Address [address] [place] [address] Care Team Providers Care Medical Driver Name Role Phone Radha Sanchez MD Primary Care Provider [phone] Encounter Details DateTypeDepartmentCare Team (Latest Contact Info)Jgcvmwlwaga50/26/2024linisync Result Encounter [facility] External Department Unsolicited Sanjeev Lopez, DO [address] [place] [address] [place] [address] Social History Tobacco UseTypesPacks/DayYears UsedDateSmoking Tobacco: NeverSmokeless Tobacco: NeverAlcohol UseStandard Drinks/WeekCommentsNot Currently0 (1 standard drink = 0.6 oz pure alcohol)Alcohol: 1 or 2 drinks on typical day/monthly or less. Caffeine: 1-2 cups/day teaCommentsNoSex and Gender InformationValueDate RecordedSex Assigned at VfysuGkhsyi70/21/2023 8:59 AM EDTLegal SexFemale 06/15/2022 7:26 PM EDTGender PiacuiliNwtuyk25/21/2023 8:59 AM EDTSexual HhqnqtduubpYxjemzvm16/21/2023 8:59 AM EDTdocumented as of this encounter Plan of Treatment DateTypeDepartmentCare Team (Latest Contact Info)Rtqytqwneoo92/08/2025 11:00 AM ESTOffice Visit [facility] [address] [place] [phone] Georgi Carreon, NOE [address] [place] [address] 04/02/2025 10:30 AM ESTOffice Visit [facility] [address] [place] [phone] Tee Carreon DPM [address] [place], [place] [phone] 04/18/2025 11:00 AM ESTOffice Visit [facility] [address] [place] [phone] Georgi Carreon DPM [address] [place], [place] [phone] 07/29/2025 1:00 PM EDTOffice Visit [facility] [address] [place] [phone] Sanjeev Lopez, DO [address] [place], [place] [phone] documented as of this encounter Procedures Procedure NamePriorityDate/TimeAssociated DiagnosisCommentsMM TOMOSYNTHESIS SCREENING 04/28/2023 12:44 PM EST documented in this encounter Results * MM TOMOSYNTHESIS SCREENING (04/28/2023 12:44 PM EST)Anatomical Region LateralityModalityOtherSpecimen (Source)Anatomical Location / Laterality Collection Method / VolumeCollection TimeReceived Time04/28/2023 12:44 PM EST Narrative 04/28/2023 12:44 PM EST [facility] ?[address] ? [place] [address] ? Mammography Report ? Signed ? Patient: JULIA,CHAR D ?MR#: [id number] ?? : 1980 ?Acct:[id number] ?? Age/Sex: 42 / F ?ADM Date: /26/24 ?? Loc: MAMMO ? Attending Dr: Sanjeev Garcia.O. ? Ordering Physician: Sanjeev Lopez D.O. ?Results: ? Date of Service: 04/28/23 ?Follow Up: ? Procedure(s): MM tomosynthesis screening BI ?? Accession Number(s): [id number] ? cc: Radha Sanchez M.D.; Sanjeev Lopez D.O. ? Patient Name: ? CHAR DUMONT ? MR#: [id number] ? : 1980 ? Exam Date: 04/28/2023 [...] [facility] ? BREAST COMPOSITION: ? Scattered areas [...] 1244 ? DD/ 1244 ? TD/TT: ? Sample Clerk: Procedure Note Radiology, Radiologist, - 04/28/2023 [place] [address] Mammography Report Signed Patient: CHAR DMUONT DMR#: [id number] : 1980Acct:[id number] Age/Sex: 42 / FADM Date: 04/28/23 Loc: MAMMO Attending Dr: Sanjeev Lopez D.O. Ordering Physician: Sanjeev Lopez D.O.Results: Date of Service: 04/28/23Follow Up: Procedure(s): MM tomosynthesis screening BI Accession Number(s): [id number] cc: Radha Sanchez M.D.; Sanjeev Lopez D.O. Patient Name: CHAR DUMONT MR#: [id number] : 1980 Exam Date: 04/28/2023 Ordering Doctor: [...] [facility] BREAST COMPOSITION: Scattered areas fibroglandular [...] M.D. Signed By:04/28/23 1244 DD/ 1244 TD/TT: Sample Clerk: Authorizing ProviderResult TypeResult StatusCorey Jessica DOCLINISYNC IMAGINGFinal Result documented in this encounter Visit Diagnoses Not on filedocumented in this encounter Care Teams Team MemberRelationshipSpecialtyStart [place] [address] [place] [phone] PCP - GeneralFamily Medicine12/12/22documented as of this encounter
--- OUTSIDE RECORDS SUMMARY | 2025-02-05 08:37 | XMS_ITS | Encounter Summary ---
Author Organization [facility] Address [address] [place] [address] Care Team Providers Care Flower Picker Name Role Phone Radha Sanchez MD Primary Care Provider [phone] Encounter Details DateTypeDepartmentCare Team (Latest Contact Info)Nurubknapzo68/03/2025linisync Result Encounter [facility] External Department Unsolicited Sanjeev Lopez, DO [address] [place] [address] Social History Tobacco UseTypesPacks/DayYears UsedDateSmoking Tobacco: NeverSmokeless Tobacco: NeverAlcohol UseStandard Drinks/WeekCommentsNot Currently0 (1 standard drink = 0.6 oz pure alcohol)Alcohol: 1 or 2 drinks on typical day/monthly or less. Caffeine: 1-2 cups/day teaCommentsNoSex and Gender InformationValueDate RecordedSex Assigned at VvvwsSnnfxe21/21/2023 8:59 AM EDTLegal SexFemale 06/15/2022 7:26 PM EDTGender JpqcrfqgNxfqlz63/21/2023 8:59 AM EDTSexual EgtdtfqddciVplqlwhj47/21/2023 8:59 AM EDTdocumented as of this encounter Plan of Treatment DateTypeDepartmentCare Team (Latest Contact Info)Exyjdqfibbt43/08/2025 11:00 AM ESTOffice Visit [facility] [address] [place] [phone] Georgi Carreon, NOE [address] [place] [address] 04/02/2025 10:30 AM ESTOffice Visit [facility] [address] [place] [phone] Tee Carreon, [place] [address] [place] [address] 04/18/2025 11:00 AM ESTOffice Visit [facility] [address] [place] [phone] Georgi Carreon, [place] [address], [place] [phone] 07/29/2025 1:00 PM EDTOffice Visit [facility] [address] [place] [phone] Sanjeev Lopez DO [address] [place] [address] documented as of this encounter Procedures Procedure NamePriorityDate/TimeAssociated DiagnosisCommentsTBH GLUCOSE BLOOD Zeoqzjh1402/03/2025 9:13 AM EST MLR HEMOGLOBIN D8SAggwtam90/03/2025 9:13 AM EST [facility] KHVVSWYDBisfywg54/03/2025 9:13 AM EST ALL THYROXINE (T4) AHYJTsxkchj99/03/2025 9:13 AM EST ALL THYROXINE (T4)Hmylkei5802/03/2025 9:13 AM EST ALL THYROID STIM JYDIIOXLkchbho65/03/2025 9:13 AM EST ALL T3 MPJFOefihjp60/03/2025 9:13 AM EST documented in this encounter Results * MLR HEMOGLOBIN A1C (02/03/2025 9:13 AM EST)ComponentValueRef RangeTest Method Analysis TimePerformed AtPathologist SignatureGLYCOHEMOGLOBIN A1C4.94.5 - 6.2 %TBHComment: ADA RECOMMENDED LIMIT 4.0 - 6.0 ADA THERAPEUTIC TARGET < 7.0 ACTION SUGGESTED > 7.0 ESTIMATED AVERAGE TOXBDZS44ag/dLTBHSpecimen (Source)Anatomical Location / LateralityCollection Method / VolumeCollection TimeReceived Time02/03/2025 9:13 AM EST02/03/2025 9:15 AM EST Narrative CLINISYNC - 02/03/2025 10:59 AM EST Authorizing ProviderResult TypeResult StatusCorey Jessica DOCLINISYNCFinal Result Performing OrganizationAddressCity/State/ZIP CodePhone Number [facility] * ALL THYROXINE (T4) FREE (02/03/2025 9:13 AM EST)ComponentValueRef RangeTest MethodAnalysis TimePerformed AtPathologist SignatureFREE T40.970.76 - 1.46 ng/dLTBHSpecimen (Source)Anatomical Location / LateralityCollection Method / VolumeCollection TimeReceived Time02/03/2025 9:13 AM EST02/03/2025 9:15 AM EST Narrative CLINISYNC - 02/03/2025 10:48 AM EST Authorizing ProviderResult TypeResult StatusCorey Jessica DOCLINISYNCFinal Result Performing OrganizationAddressCity/State/ZIP CodePhone Number [facility] * [facility] FERRITIN (02/03/2025 9:13 AM EST)ComponentValueRef RangeTest Method Analysis TimePerformed AtPathologist UxtjtxedoYEKJFQUH98.08.0 - 252.0 ng/mLTBH Specimen (Source)Anatomical Location / LateralityCollection Method / Volume Collection TimeReceived Time02/03/2025 9:13 AM EST02/03/2025 9:15 AM EST Narrative CLINISYNC - 02/03/2025 10:48 AM EST Authorizing ProviderResult TypeResult StatusCorey Jessica DOCLINISYNCFinal Result Performing OrganizationAddressty/State/ZIP CodePhone Number [facility] * ALL THYROID STIM HORMONE (02/03/2025 9:13 AM EST)ComponentValueRef RangeTest MethodAnalysis TimePerformed AtPathologist SignatureTHYROID STIMULATING HORMONE3.1050.358 - 3.740 uIU/mLTBHSpecimen (Source)Anatomical Location / LateralityCollection Method / VolumeCollection TimeReceived Time02/03/2025 9:13 AM EST02/03/2025 9:15 AM EST Narrative CLINISYNC - 02/03/2025 10:26 AM EST Authorizing ProviderResult TypeResult StatusCorey Jessica DOCLINISYNCFinal Result Performing OrganizationAddressCity/State/ZIP CodePhone Number [facility] TB * ALL THYROXINE (T4) (02/03/2025 9:13 AM EST)ComponentValueRef RangeTest Method Analysis TimePerformed AtPathologist SignatureT4 THYROXINE9.304.80 - 13.90 ug/dLTBHSpecimen (Source)Anatomical Location / LateralityCollection Method / VolumeCollection TimeReceived Time02/03/2025 9:13 AM EST02/03/2025 9:15 AM EST Narrative CLINISYNC - 02/03/2025 10:26 AM EST Authorizing ProviderResult TypeResult StatusCorey Jessica DOCLINISYNCFinal Result Performing OrganizationAddressCity/State/ZIP CodePhone Number [facility] * ALL T3 FREE (02/03/2025 9:13 AM EST)ComponentValueRef RangeTest MethodAnalysis TimePerformed AtPathologist SignatureFREE T32.372.18 - 3.98 pg/mLTBHSpecimen (Source)Anatomical Location / LateralityCollection Method / VolumeCollection TimeReceived Time02/03/2025 9:13 AM EST02/03/2025 9:15 AM EST Narrative CLINISYNC - 02/03/2025 10:26 AM EST Authorizing ProviderResult TypeResult StatusCorey Jessica DOCLINISYNCFinal Result Performing OrganizationAddressCity/State/ZIP CodePhone Number [facility] TB * TBH GLUCOSE BLOOD (02/03/2025 9:13 AM EST)ComponentValueRef RangeTest Method Analysis TimePerformed AtPathologist YuibjmbqpYKSBHOM2388 - 106 mg/dLTBH Specimen (Source)Anatomical Location / LateralityCollection Method / Volume Collection TimeReceived Time02/03/2025 9:13 AM EST02/03/2025 9:15 AM EST Narrative CLINISYNC - 02/03/2025 10:26 AM EST Authorizing ProviderResult TypeResult StatusCorey Jessica DOCLINISYNCFinal Result Performing OrganizationAddressCity/State/ZIP CodePhone Number [facility] TBH documented in this encounter Visit Diagnoses Not on filedocumented in this encounter Care Teams Team MemberRelationshipSpecialtyStart DateEnd Date Radha Sanchez MD [address] [place] [phone] PCP - GeneralFamily Medicine12/12/22documented as of this encounter
--- OUTSIDE RECORDS SUMMARY | 2025-02-05 08:37 | XMS_ITS | Encounter Summary ---
Author Organization [facility] Address [address] [place] [address] Care Team Providers Care Supervisor Parking Lot Name Role Phone Radha Sanchez MD Primary Care Provider [phone] Encounter Details DateTypeDepartmentCare Team (Latest Contact Info)Ddoyxzlsokw28/14/2024linisync Result Encounter [facility] External Department Unsolicited Sanjeev Lopez, DO [address] [facility] [place] [address] Social History Tobacco UseTypesPacks/DayYears UsedDateSmoking Tobacco: NeverSmokeless Tobacco: NeverAlcohol UseStandard Drinks/WeekCommentsNot Currently0 (1 standard drink = 0.6 oz pure alcohol)Alcohol: 1 or 2 drinks on typical day/monthly or less. Caffeine: 1-2 cups/day teaCommentsNoSex and Gender InformationValueDate RecordedSex Assigned at SpztvOklaey24/21/2023 8:59 AM EDTLegal SexFemale 06/15/2022 7:26 PM EDTGender LoumlmuwLfrtqp83/21/2023 8:59 AM EDTSexual QlrnvmakccsTmwbmzbu04/21/2023 8:59 AM EDTdocumented as of this encounter Plan of Treatment DateTypeDepartmentCare Team (Latest Contact Info)Jilnoasyjfa79/08/2025 11:00 AM ESTOffice Visit [facility] [address] [place] [phone] Georgi Carreon, NOE [address] [place] [address] 04/02/2025 10:30 AM ESTOffice Visit [facility] [address] [place] [phone] Tee Carreon DPM [address] [place], [place] [phone] 04/18/2025 11:00 AM ESTOffice Visit [facility] [address] [place] [phone] Georgi Carreon DPM [address], [place] [phone] 07/29/2025 1:00 PM EDTOffice Visit [facility] [address] [facility] [place] [phone] Sanjeev Lopez, DO [address] [facility] [address] [place], [place] [phone] documented as of this encounter Procedures Procedure NamePriorityDate/TimeAssociated DiagnosisCommentsMM TOMOSYNTHESIS DIAGNOSTIC LT11/15/2023 11:25 AM EDT documented in this encounter Results * MM TOMOSYNTHESIS DIAGNOSTIC LT (11/15/2023 11:25 AM EDT)Anatomical Region LateralityModalityOtherSpecimen (Source)Anatomical Location / Laterality Collection Method / VolumeCollection TimeReceived Time11/15/2023 11:25 AM EDT Narrative 11/15/2023 11:26 AM EDT [facility] ?[address] ? [place] [address] ? Mammography Report ? Signed ? Patient: JULIA,CHAR D ?MR#: [id number] ?? : 1980 ?Acct:[id number] ?? Age/Sex: 42 / F ?ADM Date: /14/24 ?? Loc: MAMMO ? Attending Dr: Sanjeev Lopez D.O. ? Ordering Physician: Sanjeev Lopez D.O. ?Results: ? Date of Service: 11/15/23 ?Follow Up: ? Procedure(s): MM tomosynthesis diagnostic LT ?? Accession Number(s): [id number] ? cc: Radha Sanchez M.D.; Sanjeev Lopez D.O. ? Patient Name: ? CHAR DUMONT ? MR#: [id number] ? : 1980 ? Exam Date: 11/15/2023 [...] age 67. ? LOCATION: ? [facility] ? BREAST COMPOSITION: ? There are [...] 1126 ? DD/ 1125 ? TD/TT: ? City Route Driver: Procedure Note Radiology, Radiologist, MD - 11/15/2023 [place] [address] Mammography Report Signed Patient: CHAR DUMONT DMR#: [id number] : 1980Acct:[id number] Age/Sex: 42 / FADM Date: 11/15/23 Loc: MAMMO Attending Dr: Sanjeev Lopez D.O. Ordering Physician: Sanjeev Lopez D.O.Results: Date of Service: 11/15/23Follow Up: Procedure(s): MM tomosynthesis diagnostic LT Accession Number(s): [id number] cc: Radha Sanchez M.D.; Sanjeev Lopez D.O. Patient Name: CHAR DUMONT MR#: [id number] : 1980 Exam Date: 11/15/2023 Ordering Doctor: [...] cancer at age 67. LOCATION: [facility] BREAST COMPOSITION: There are scattered areas [...] M.D. Signed By:11/15/23 1126 DD/ 1125 TD/TT: City Route Driver: Authorizing ProviderResult TypeResult StatusCorey Jessica DOCLINISYNC IMAGINGFinal Result documented in this encounter Visit Diagnoses Not on filedocumented in this encounter Care Teams Team MemberRelationshipSpecialtyStart DateEnd Date Radha Sanchez MD [address] [place] [phone] PCP - GeneralFamily Medicine12/12/22documented as of this encounter
--- OUTSIDE RECORDS SUMMARY | 2025-02-05 08:37 | XMS_ITS | Clinical Summary ---
Author Organization [facility] Address [address] [place] [address] Care Team Providers Care Sole Leveling Machine Operator Name Role Phone Radha Sanchez MD Primary Care Provider [phone] Allergies Active AllergyReactionsCriticalityNoted WyzdSuemibfvEgbwmkjxVljmKdlnmw13/24/2024 Pt states allergic to paper tape TopiramateOther,Swelling,LtfqboyJjx75/18/2014 Medications MedicationSigDispense QuantityRefillsLast FilledStart DateEnd DateStatus fqwinuyypq-wddfebhrobzpl-amtg (Fioricet) 50-300-40 mg capsule Take 50 capsules [...] route 1 (one) time per week. 5Active breiqgxtrohk-ijx-bjvi-FA-vit K 18 mg iron-400 mcg-25 mcg tablet [...] /ctive Active Problems ProblemNoted DateDiagnosed DateFibrocystic breast lcqwrlt8606/24/2024Panniculitis affecting back01/25/2024Generalized anxiety auksexpt60/02/2024ttention deficit hyperactivity disorder (ADHD), predominantly inattentive type11/22/2023Mallet deformity of right ring efkinn6505/16/2023reast pain10/06/2022Frequent headaches 10/06/2022Hallux valgus (acquired), left foot10/06/2022Insulin resistance 10/06/2022Labial cyst10/06/20227302Dlzueefxhvs84/06/2023Weight gain10/06/2022History of multiple kxvwsysslshs65/31/0292Ldzvtjeaqb41/31/2022Neurogenic bladder 12/01/2021sychophysiological ofdqcvwd32/31/2022Vitamin B12 vwkewzntlv63/31/2022 DDD (degenerative disc disease), fpnctd552Decreased movements in third zazauaeyz30/06/2020History of PCOS01/24/2017Insulin controlled gestational diabetes mellitus (GDM) in second ygzzydniz79/24/2017BMI 45.0-49.9, adult 10/17/2016History of spontaneous fxnofytz90/05/2017History of delivery 09/05/20166452Cuvskgrag24/11/2014Irritable bowel rbnysqhe03/11/2014Migraines 10/11/2013Polycystic ovarian orcnxjhn06/11/2014 Family History Medical HistoryRelationNameCommentsNo Known ProblemsFatherHeart murmurMother RelationNameStatusCommentsFatherAliveMotherAlive Social History Tobacco UseTypesPacks/DayYears UsedDateSmoking Tobacco: NeverSmokeless Tobacco: Never Tobacco Cessation:Counseling Given: Not Answered Alcohol UseStandard Drinks/WeekCommentsNever0 (1 standard drink = 0.6 oz pure alcohol)[place] Safety & EnvironmentAnswerDate RecordedFear of Current or Ex-Partner Not on file05/25/2023Emotionally AbusedNot on file05/25/2023hysically AbusedNot on file05/25/2023Sexually AbusedNot on file05/25/2023hysically or Sexually AbusedNot on file05/25/2023CommentsUnknownSex and Gender Information ValueDate RecordedSex Assigned at XodojCmgtmj90/02/2025 8:53 AM EDTLegal Sex Nlwgkf0509/29/2021 9:51 PM EDTGender SzfxhxkkFfbkyh25/02/2025 8:53 AM EDTSexual OrientationHeterosexual or Zjcoeuyx23/02/2025 8:53 AM EDT Last Filed Vital Signs Vital SignReadingTime TakenCommentsBlood Nxhiuart116/8308/05/2024 11:20 AM EDT Frpsx159508/05/2024 11:20 AM EDTTemperature--Respiratory Rate--Oxygen Saturation 100%08/05/2024 11:20 AM EDTInhaled Oxygen Concentration--Jjtric43.4 kg (206 lb) 08/05/2024 11:20 AM KFADejoqb574.1 cm (5' 5 )08/05/2024 11:20 AM EDTBody Mass Index34.28008/05/2024 11:20 AM EDT Plan of Treatment DateTypeDepartmentCare Team (Latest Contact Info)Ftlpbuagikx76/12/2025 10:30 AM ESTOffice Visit [facility] [address] [place] [address] Thomas Phillips MD [address] [facility] [place] [phone] Health MaintenanceDue DateLast DoneCommentsDepression Mxfpzyytc52/30/1995 Varicella Vaccines (1 of 2 - 13+ 2-dose series)12/01/1995Hepatitis B Vaccines (1 of 3 - 19+ 3-dose series)2001Adult Nkmgpeb5611/30/2004HPV Vaccines (1 - 3- dose SCDM series)2009HPV/Qjpchy1511/30/20123395Cpjqfczvn48/30/2023COVID-19 Vaccine ( - 2024- season)2024Influenza Vaccine (#1)2024ervical Cancer Lootmfipn34/21/2028Pap Smear07/22/381434/Zoster Vaccines (1 of 2) 2032HIB VaccinesAged OutNo [...] DateEnd Date Radha Sanchez MD [address] [facility] [address] PCP - General06/21/24
--- OUTSIDE RECORDS SUMMARY | 2025-02-05 08:37 | XMS_ITS | Encounter Summary ---
Author Organization [facility] Address [address] [place] [address] Care Team Providers Care Quality Control Name Role Phone Radha Sanchez MD Primary Care Provider [phone] Encounter Details DateTypeDepartmentCare Team (Latest Contact Info)Sjlsmvcuvgp87/24/2024linisync Result Encounter [facility] External Department Unsolicited Nick Lopez, DO [address] [facility] [place] [address] Social History Tobacco UseTypesPacks/DayYears UsedDateSmoking Tobacco: NeverSmokeless Tobacco: NeverAlcohol UseStandard Drinks/WeekCommentsNot Currently0 (1 standard drink = 0.6 oz pure alcohol)Alcohol: 1 or 2 drinks on typical day/monthly or less. Caffeine: 1-2 cups/day teaCommentsNoSex and Gender InformationValueDate RecordedSex Assigned at QndgbEzpbcr84/21/2023 8:59 AM EDTLegal SexFemale 06/15/2022 7:26 PM EDTGender WauuhlvlFoevyf43/21/2023 8:59 AM EDTSexual XqizgbbeiugKgavgbeg82/21/2023 8:59 AM EDTdocumented as of this encounter Plan of Treatment DateTypeDepartmentCare Team (Latest Contact Info)Scuwxkrxwxr58/08/2025 11:00 AM ESTOffice Visit [facility] [address] [place] [phone] Georgi Carreon, NOE [address] [place] [address] 04/02/2025 10:30 AM ESTOffice Visit [facility] [address] [place] [phone] Tee Carreon, DPM [address] [place], [place] [address] 04/18/2025 11:00 AM ESTOffice Visit [facility] [address] [place] [phone] Georgi Carreon, DPM [address] [place], [place] [address] 07/29/2025 1:00 PM EDTOffice Visit [facility] [address] [address] Nick Lopez DO [address] [facility] [place] [address] documented as of this encounter Procedures Procedure NamePriorityDate/TimeAssociated DiagnosisCommentsUS PELVIS W/ AVLVAYANESCC03/24/2024 11:10 AM EDT [facility] PREG QUANT OZJZupoabf26/24/2024 9:55 AM EDT SRMCOH PROTHROMBIN TIME INR W/O UYDBVesdhwi86/24/2024 9:55 AM EDT [facility] DHVLHezozuw27/24/2024 9:55 AM EDT ALL THYROXINE (T4) GTCFFaziyll87/24/2024 9:55 AM EDT ALL THYROID STIM SQENZKRNpagwzc26/24/2024 9:55 AM EDT ALL CBC WITH AUTO SAUFEarfqaj23/24/2024 9:55 AM EDT documented in this encounter Results * US PELVIS W/ TRANSVAGINAL (10/25/2023 11:10 AM EDT)Anatomical RegionLaterality ModalityOtherSpecimen (Source)Anatomical Location / LateralityCollection Method / VolumeCollection TimeReceived Time10/25/2023 11:10 AM EDT Narrative 10/25/2023 11:13 AM EDT [facility] ?[address] ? [place] [address] ? Ultrasound Report ? Signed ? Patient: MARISSA,CHAR D ?MR#: [id number] ?? : 1980 ?Acct:[id number] ?? Age/Sex: 42 / F ?ADM Date: 10/25/23 ?? Loc: NOMS ? Attending Dr: Nick Lopez D.O. ? Ordering Physician: Nick Lopez D.O. ?? Date of Service: 10/25/23 ?? Procedure(s): US pelvis w/ transvaginal ?? Accession Number(s): [id number] ? cc: Radha Sanchez M.D.; Nick Lopez D.O. ? [facility] ? [address] ? [place] [address] ? Patient Name: ?? CHAR DUMONT ? MRN: [facility]:[id number] ? date: 1980 ?Sex: F ?? Assigned Patient Location: NOMS ?? Current Patient Location: LAB ?? Accession/Order Number: [id number] ?? Exam Date: 10/25/2023 ??09:07 ?Report Date: [...] Date: 10/25/2023 ??11:10 ? Dictated By: ?Monserrat Palacios M.D. ? Signed By: ?10/25/23 1113 ? DD/ 1110 ? TD/TT: ? Health Care Specialist: Procedure Note Radiology, Radiologist, - 10/25/2023 [place] [address] Ultrasound Report Signed Patient: CHAR DUMONT DMR#: [id number] : 1980Acct:[id number] Age/Sex: 42 / FADM Date: 10/25/23 Loc: NOMS Attending Dr: Nick Lopez D.O. Ordering Physician: Nick Lopez D.O. Date of Service: 10/25/23 Procedure(s): US pelvis w/ transvaginal Accession Number(s): [id number] cc: Radha Sanchez M.D.; Nick Lopez D.O. The [place] [id number] Patient Name: CHAR DUMONT MRN: [facility]:[id number] date: 1980 Sex: F Assigned Patient Location: [facility] Current Patient Location: LAB Accession/Order Number: [id number] Exam Date: 10/25/2023 09:07 Report Date: 10/25/2023 [...] M.D. Signed By:10/25/23 1113 DD/ 1110 TD/TT: Health Care Specialist: Authorizing ProviderResult TypeResult StatusCorey Jessica ELIDIALINISYNC IMAGINGFinal Result * ALL THYROXINE (T4) FREE (10/25/2023 9:55 AM EDT)ComponentValueRef RangeTest MethodAnalysis TimePerformed AtPathologist SignatureFREE T41.240.76 - 1.46 ng/dLTBHSpecimen (Source)Anatomical Location / LateralityCollection Method / VolumeCollection TimeReceived Time10/25/2023 9:55 AM EDT10/25/2023 9:56 AM EDT Narrative [facility] - 10/25/2023 11:52 AM EDT Authorizing ProviderResult TypeResult StatusCorey Jessica DOCLINISYNCFinal Result Performing OrganizationAddressCity/State/ZIP CodePhone Number [facility] * [facility] APTT (10/25/2023 9:55 AM EDT)ComponentValueRef RangeTest MethodAnalysis TimePerformed AtPathologist SignaturePARTIAL THROMBOPLASTIN TIME29.522.3 - 36.2 secTBHSpecimen (Source)Anatomical Location / LateralityCollection Method / VolumeCollection TimeReceived Time10/25/2023 9:55 AM EDT10/25/2023 9:56 AM EDT Narrative [facility] - 10/25/2023 11:49 AM EDT Authorizing ProviderResult TypeResult StatusCorey Jessica DOCLINISYNCFinal Result Performing OrganizationAddressCity/State/ZIP CodePhone Number [facility] * SRMCOH PROTHROMBIN TIME INR W/O [...] DOCLINISYNCFinal Result Performing OrganizationAddressCity/State/ZIP CodePhone Number [facility] * [facility] PREG QUANT HCG (10/25/2023 [...] Jessica DOCLINISYNCFinal Result Performing OrganizationAddressCity/State/ZIP CodePhone Number [facility] * ALL THYROID STIM HORMONE (10/25/2023 9:55 AM EDT)ComponentValueRef RangeTest MethodAnalysis TimePerformed AtPathologist SignatureTHYROID STIMULATING HORMONE1.4970.358 - 3.740 uIU/mLTBHSpecimen (Source)Anatomical Location / LateralityCollection Method / VolumeCollection TimeReceived Time10/25/2023 9:55 AM EDT10/25/2023 9:56 AM EDT Narrative [facility] - 10/25/2023 11:26 AM EDT Authorizing ProviderResult TypeResult StatusCorey Jessica DOCLINISYNCFinal Result Performing OrganizationAddressCity/State/ZIP CodePhone Number [facility] * ALL CBC WITH AUTO DIFF (10/25/2023 9:55 AM EDT)ComponentValueRef RangeTest MethodAnalysis TimePerformed AtPathologist SignatureTBH WBC5.54.0 - 11.0 10 3/uLTBHTBH RBC4.524.20 - 5.40 10 6/uLTBHTBH HGB12.612.0 - 16.0 g/dLTBHTBH HCT 39.836.0 - 48.0 %TBHTBH MCV88.181.0 - 99.0 fLTBHTBH MCH27.926.7 - 34.0 pgTBH TBH MCHC31.729.9 - 35.2 g/dLTBHTBH RDW14.511.0 - 15.0 %TBHTBH ARP463496 - 450 10 3/uLTBHTBH MPV9.79.5 - 13.5 [...] DOCLINISYNCFinal Result Performing OrganizationAddressCity/State/ZIP CodePhone Number [facility] documented in this encounter Visit Diagnoses Not on filedocumented in this encounter Care Teams Team MemberRelationshipSpecialtyStart DateEnd Date Radha Sanchez MD [address] [place] [phone] PCP - GeneralFamily Medicine12/12/22documented as of this encounter
--- OUTSIDE RECORDS SUMMARY | 2025-02-05 08:37 | XMS_ITS | Encounter Summary ---
Author Organization [facility] Address [address] [place] [address] Care Team Providers Care Client Portfolio Manager Name Role Phone Radha Sanchez MD Primary Care Provider [phone] Encounter Details DateTypeDepartmentCare Team (Latest Contact Info)Rlsgddbdqrw16/11/2024Clinisync Result Encounter NOMS External Department Unsolicited Sanjeev Lopez, DO [address] [place] [address] Social History Tobacco UseTypesPacks/DayYears UsedDateSmoking Tobacco: NeverSmokeless Tobacco: NeverAlcohol UseStandard Drinks/WeekCommentsNot Currently0 (1 standard drink = 0.6 oz pure alcohol)Alcohol: 1 or 2 drinks on typical day/monthly or less. Caffeine: 1-2 cups/day teaCommentsNoSex and Gender InformationValueDate RecordedSex Assigned at WkfxeGtlxbw03/21/2023 8:59 AM EDTLegal SexFemale 06/15/2022 7:26 PM EDTGender DkmtkcsmZfzxmy30/21/2023 8:59 AM EDTSexual GocdxqoyqufTdughqsq83/21/2023 8:59 AM EDTdocumented as of this encounter Miscellaneous Notes * Result Encounter Note - Tatum Atkinson LPN - 03/13/2024 3:00 PM EST Pt notified and was told we could do the BRCA referral documented in this encounter Plan of Treatment DateTypeDepartmentCare Team (Latest Contact Info)Eysjhnvqrrw55/08/2025 11:00 AM ESTOffice Visit [facility] [address] [place] [phone] Georgi Carreon, DP [address] [place] [address] 04/02/2025 10:30 AM ESTOffice Visit [facility] [address] [place] [phone] Tee Carreon DP [address] [place] [address] 04/18/2025 11:00 AM ESTOffice Visit [facility] [address] [place] [phone] Georgi Carreon, [facility] [address] [place] [address] 07/29/2025 1:00 PM EDTOffice Visit [facility] [address] [address] Sanjeev Lopez DO [address] [place] [address] documented as of this encounter Procedures Procedure NamePriorityDate/TimeAssociated DiagnosisCommentsMM TOMOSYNTHESIS DIAGNOSTIC BI03/13/2024 2:58 PM EST documented in this encounter Results * MM TOMOSYNTHESIS DIAGNOSTIC BI (03/13/2024 2:58 PM EST)Anatomical Region LateralityModalityOtherSpecimen (Source)Anatomical Location / Laterality Collection Method / VolumeCollection TimeReceived Time03/13/2024 2:58 PM EST Narrative 03/13/2024 2:59 PM EST [facility] ?[address] ? [place] [address] ? Mammography Report ? Signed ? Patient: MARISSA,CHAR D ?MR#: [id number] ?? : 1980 ?Acct:[id number] ?? Age/Sex: 43 / F ?ADM Date: 12/11/24 ?? Loc: MAMMO ? Attending Dr: Sanjeev Lopez D.O. ? Ordering Physician: Sanjeev Lopez D.O. ?Results: ? Date of Service: 03/13/24 ?Follow Up: ? Procedure(s): MM tomosynthesis diagnostic BI ?? Accession Number(s): [id number] ? cc: Radha Sanchez M.D.; Sanjeev Lopez D.O. ? Patient Name: ? CHARHARSH MARIECHT ? MR#: [id number] ? : 1980 ? Exam Date: 03/13/2024 [...] at age 67. ? LOCATION: ? [facility] ? BREAST COMPOSITION: ? There are [...] 145 ? DD/ 57 ? TD/TT: ? Manufacturing Design Engineer: Procedure Note Radiology, Radiologist, MD - 03/13/2024 [place] [address] Mammography Report Signed Patient: CHAR DUMONT DMR#: [id number] : 1980Acct:[id number] Age/Sex: 43 / FADM Date: 03/13/24 Loc: MAMMO Attending Dr: Sanjeev Jessica D.O. Ordering Physician: Sanjeev Lopez D.O.Results: Date of Service: 03/13/24Follow Up: Procedure(s): MM tomosynthesis diagnostic BI Accession Number(s): [id number] cc: Radha Sanchez M.D.; Sanjeev Lopez D.O. Patient Name: CHAR DUMONT MR#: [id number] : 1980 Exam Date: 03/13/2024 Ordering Doctor: [...] stomach cancer at age 67. LOCATION: [facility] BREAST COMPOSITION: There are scattered areas [...] M.D. Signed By:03/13/24 145 DD/ 57 TD/TT: Manufacturing Design Engineer: Authorizing ProviderResult TypeResult StatusCorey Jessiac DOCLINISYNC IMAGINGFinal Result documented in this encounter Visit Diagnoses Not on filedocumented in this encounter Care Teams Team MemberRelationshipSpecialtyStart [place] [address] [place] [phone] PCP - GeneralFamily Medicine12/12/22documented as of this encounter
--- OUTSIDE RECORDS SUMMARY | 2025-02-05 08:37 | XMS_ITS | Encounter Summary ---
Author Organization [facility] Address [address] [place] [address] Care Team Providers Care Surveillance Systems Engineer Name Role Phone Radha Sanchez MD Primary Care Provider [phone] Encounter Details DateTypeDepartmentCare Team (Latest Contact Info)Ogaasdwyhol27/08/2024linisync Result Encounter NOMS External Department Unsolicited Sanjeev Lopez, DO [address] [facility] [place] [address] Social History Tobacco UseTypesPacks/DayYears UsedDateSmoking Tobacco: NeverSmokeless Tobacco: NeverAlcohol UseStandard Drinks/WeekCommentsNot Currently0 (1 standard drink = 0.6 oz pure alcohol)Alcohol: 1 or 2 drinks on typical day/monthly or less. Caffeine: 1-2 cups/day teaCommentsNoSex and Gender InformationValueDate RecordedSex Assigned at XtyxzUvzjms38/21/2023 8:59 AM EDTLegal SexFemale 06/15/2022 7:26 PM EDTGender PcymvusvRimbrg99/21/2023 8:59 AM EDTSexual NfugvgmwmctMfhfrbpo11/21/2023 8:59 AM EDTdocumented as of this encounter Plan of Treatment DateTypeDepartmentCare Team (Latest Contact Info)Zjajruvewhc24/08/2025 11:00 AM ESTOffice Visit [facility] [address] [place] [phone] Georgi Carreon, NOE [address] [place] [address] 04/02/2025 10:30 AM ESTOffice Visit [facility] [address] [place] [phone] Tee Carreon DPM [address] [place], [place] [phone] 04/18/2025 11:00 AM ESTOffice Visit [facility] [address] [place] [phone] Georgi Carreon DPM [address] [place], [place] [phone] 07/29/2025 1:00 PM EDTOffice Visit [facility] [address] [facility] [place] [phone] Sanjeev Lopez, DO [address] [facility] [address] [place] [place], [place] [phone] documented as of this encounter Procedures Procedure NamePriorityDate/TimeAssociated DiagnosisCommentsMM POST BIOPSY LT 06/09/2023 9:02 AM EST documented in this encounter Results * MM POST BIOPSY LT (06/09/2023 9:02 AM EST)Anatomical RegionLateralityModality OtherSpecimen (Source)Anatomical Location / LateralityCollection Method / VolumeCollection TimeReceived Time06/09/2023 9:02 AM EST Narrative 06/09/2023 9:03 AM EST [facility] ?[address] ? [place] [address] ? Mammography Report ? Signed ? Patient: JULIA,CHAR D ?MR#: [id number] ?? : 1980 ?Acct:[id number] ?? Age/Sex: 42 / F ?ADM Date: 02/20/24 ?? Loc: MAMMO ? Attending Dr: Sanjeev Garcia.O. ? Ordering Physician: Sanjeev Lopez D.O. ?Results: ? Date of Service: 05/23/23 ?Follow Up: ? Procedure(s): MM post biopsy LT ?? Accession Number(s): [id number] ? cc: Radha Sanchez M.D.; Sanjeev Lopez D.O. ? Patient Name: ? CHAR DUMONT ? MR#: [id number] ? : 1980 ? Exam Date: 05/23/2023 [...] ?06/09/23902 ? DD/ 0902 ? TD/TT: ? K 12 Principal: Procedure Note Radiology, Radiologist, MD - 06/09/2023 [place] [address] Mammography Report Signed Patient: CHAR DUMONT DMR#: [id number] : 1980Acct:[id number] Age/Sex: 42 / FADM Date: 05/23/23 Loc: MAMMO Attending Dr: Sanjeev Lopez D.O. Ordering Physician: Sanjeev Lopez D.O.Results: Date of Service: 05/23/23Follow Up: Procedure(s): MM post biopsy LT Accession Number(s): [id number] cc: Radha Sanchez M.D.; Sanjeev Lopez D.O. Patient Name: CHAR DUMONT MR#: [id number] : 1980 Exam Date: 05/23/2023 Ordering Doctor: [...] Peterson M.D. Signed By:06/09/23902 DD/ 1 TD/TT: K 12 Principal: Authorizing ProviderResult TypeResult StatusCorey Jessica DOCLINISYNC IMAGINGFinal Result documented in this encounter Visit Diagnoses Not on filedocumented in this encounter Care Teams Team MemberRelationshipSpecialtyStart DateEnd Date Radha Sanchez MD [address] [place] [phone] PCP - GeneralFamily Medicine12/12/22documented as of this encounter
--- OUTSIDE RECORDS SUMMARY | 2025-02-05 08:37 | XMS_ITS | Encounter Summary ---
Author Organization [facility] Address [address] [place] [address] Care Team Providers Care Boiler Welder Name Role Phone Radha Sanchez MD Primary Care Provider [phone] Encounter Details DateTypeDepartmentCare Team (Latest Contact Info)Vigzwkgaslo15/31/2025Telephone [facility] [address] [place] [address] [place] [address] Natalia Choi LPN Social History Tobacco UseTypesPacks/DayYears UsedDateSmoking Tobacco: NeverSmokeless Tobacco: NeverAlcohol UseStandard Drinks/WeekCommentsNot Currently0 (1 standard drink = 0.6 oz pure alcohol)Alcohol: 1 or 2 drinks on typical day/monthly or less. Caffeine: 1-2 cups/day teaCommentsNoSex and Gender InformationValueDate RecordedSex Assigned at IxdtbWxrdpx63/21/2023 8:59 AM EDTLegal SexFemale 06/15/2022 7:26 PM EDTGender WudaydzxYfjsvd10/21/2023 8:59 AM EDTSexual NjgskyegzvuQtxmwvux94/21/2023 8:59 AM EDTdocumented as of this encounter [...] stated that she had them drawn at [facility]. Obtained results while on the phone [...] Plan of Treatment DateTypeDepartmentCare Team (Latest Contact Info)Azxikfjwhjy52/08/2025 11:00 AM ESTOffice Visit [facility] [address] [place] [address] Georgi Carreon DPM [address] [place] [address] 04/02/2025 10:30 AM ESTOffice Visit [facility] [address] [place] [id number] Tee Carreon, DPM [address], [place] [id number] 04/18/2025 11:00 AM ESTOffice Visit [facility] [address] [place] [address] Georgi Carreon DPM [address], [place] [id number] 07/29/2025 1:00 PM EDTOffice Visit [facility] [address] [place] [address] Sanjeev Lopez DO [address] [place], [place] [id number] documented as of this encounter Visit Diagnoses Not on filedocumented in this encounter Care Teams Team MemberRelationshipSpecialtyStart DateEnd Date Radha Sanchez MD [address] [facility] [place] [id number] PCP - GeneralFamily Medicine12/12/22documented as of this encounter
--- OUTSIDE RECORDS SUMMARY | 2025-02-05 08:37 | XMS_ITS | Patient Health Record ---
Author Organization The [facility] in [place] Address [address] [place] [address] Care Team Providers Care Nondestructive Tester Name Role Phone Radah Sanchez Primary Care Provider Kaleb Mcgee Unavailable [phone] Provider, Radiology Unavailable [phone] Allergies Allergen (clinical drug ingredient) Drug/Non Drug Allergy documented on EMR Reaction Allergy Type Onset Date Status topiramate Topiramate Unknown Drug Allergy Active Results Component Value Reference Range Notes MRI Breast Bilateral w/wo co ntrast * Reviewed date:04/30/2024 02:07:33 PM Interpretation: Performing Lab: Notes/Report: [id number] [place] [address] Name: Julia Beckman : 1980 Gender: F Referring Provider: Kaleb Price Exam: MRI BREAST BILATERAL WITH AND WITHOUT CONTRAST Exam Start: 04/12/2024 Accn: [id number] INDICATION/HISTORY: Dense breast tissue (R92.2) Abnormal finding on US. Has had breast pain for about 3 months since January 2024, no pain at this time. History of left breast biopsy May 2023, negative per patient. PROCEDURE: MRI breast bilateral with and without contrast including dynamic bolus contrast administration. Patient received 20 cc IV Clariscan. Post image processing workstation generated 3D images reviewed. COMPARISON: Report of diagnostic mammogram and ultrasound 05/10/23. I do not have images for direct comparison. FINDINGS: 3D MIP images demonstrate abnormal appearance to the right breast where there is a low T1 signal intensity nodule localizing to the inferior aspect of the left breast retroareolar region approximately at the 6 o'clock position measuring approximately 1.6 x 0.8 cm. Postcontrast administration, this nodule enhances. There is also a nodule localizing to the inferior aspect of the left breast measuring approximately 2 x 0.7 cm that enhances with two additional nodules identified within the mid aspect of the left breast measuring 6.9 mm and 7.5 mm. No evidence for adenopathy. DynaCAD images: 3D MIP images demonstrate prominent nodularity inferior retroareolar region of the right breast. This demonstrates indeterminate enhancement characteristics and is smooth contoured. Additional area of nodular signal intensity associated with the anterior aspect of the mid right breast also demonstrates indeterminate enhancement characteristics with three areas of enhancing nodularity identified within the left breast, one within the mid aspect at the 12 o'clock position, one within the inferior aspect at the 6 o'clock position and one within the 3 o'clock position for three lesions left breast, one lesion right breast. IMPRESSION: One nodule right breast, three nodules left breast as described above. Imaging characteristics are indeterminate. Would recommend correlation with focused ultrasound. Transcribed by: Nydia Shields 04/12/2024 13:28 Sincerely, ROHIT RYAN MD Electronically Signed: 04/12/2024 13:42 Thank you for referring CHAR DUMONT to the [facility], [id number] US Breast Limited LT Reviewed date:04/30/2024 01:52:59 PM Interpretation: Performing Lab: Notes/Report: ADDENDUM REPORT: [email or web address] [address] [address] Name: Char Dumont : 1980 Gender: F Referring Provider: Kaleb Price Exam: ULTRASOUND BREAST LEFT Exam Start: 04/19/2024 Accn: [id number] ADDENDUM: Left breast ultrasound: Comparison multiple prior examinations from outside institution and correlation with the prior breast biopsy. Imaging studies from March 13, November 14, May 23, and May 10, 2023 are all reviewed. In light of these images, the interval biopsy, and the position of the potential abnormality adjacent to the biopsy cavity, the MRI and ultrasound lesion is likely a postprocedural iatrogenic finding, and therefore considered probably benign. Biopsy of this lesion could be deferred, and diagnostic mammography and ultrasound after six months are recommended. Transcribed by: LYNN STEEL 04/23/2024 16:14 Sincerely, STACIE DELVALLE MD Electronically Signed: 04/23/2024 16:14 Thank you for referring CHAR DUMONT to the [email or web address]. PREVIOUS REPORT: [facility], [place] [address] Name: Julia Garcia : 1980 Gender: F Referring Provider: Kaleb Price Exam: ULTRASOUND BREAST LEFT Exam Start: 04/19/2024 Accn: [id number] HISTORY: Enhancing breast lesions on MRI. Recent stereotactic biopsy. PROCEDURE: Ultrasound left breast. COMPARISON: No exams were available for comparison. FINDINGS: Targeted ultrasound at the lesions described on the recent MRI report. At the 6- 7 o'clock position, a biopsy marker clip is identified 5 cm from the nipple. Very near to this marker clip within 5 mm is an ovoid hypoechogenicity with lobulated margins, wider than tall, 1.3 x 0.4 x 1.4 cm with internal vascular flow. Imaging at the other sites of potential MRI abnormality including the 11 o'clock position, 4 cm from nipple, shows a small hypoechogenicity only a 4 mm in size subcutaneous, which is considered very low suspicion, possibly a complicated cyst. Extensive ultrasound imaging at the 3 o'clock position demonstrates areas of dense fibroglandular tissue, but no focal suspicious findings. IMPRESSION: 1. Very near the recent biopsy marker clip is an ovoid hypoechogenicity. Benign breast nodular parenchyma is possible. Fibroadenoma is possible. breast malignancy is less likely, but not excluded. 2. Recommendation: Ultrasound-guided biopsy. If biopsy is deferred, then comparison with any prior outside imaging and short-term follow-up ultrasound imaging to exclude growth at four-month intervals would be recommended. BI-RADS 4 - SUSPICIOUS ABNORMALITY. BIOPSY SHOULD BE CONSIDERED. Transcribed by: LYNN STEEL 04/19/2024 15:27 Sincerely, STACIE DELVALLE MD Electronically Signed: 04/19/2024 15:38 Thank you for referring CHAR DUMONT to the [facility], [id number] US Breast Limited RT Reviewed date:04/30/2024 01:53:24 PM Interpretation: Performing Lab: Notes/Report: ADDENDUM REPORT: [facility] [address] [place] [address] Name: Char Dumont : 1980 Gender: F Referring Provider: Kaleb Price Exam: ULTRASOUND BREAST RIGHT Exam Start: 04/19/2024 Accn: [id number] ADDENDUM: Outside ultrasound 03/13/24 is submitted for comparison. The ovoid nodule measured 1.2 x 0.3 x 1.0 cm on the outside imaging and measures 1.4 x 1.2 x 0.7 cm on the current exam. Lesion remains relatively low suspicion, but equivocal by imaging. Recommendation: Ultrasound-guided biopsy. Transcribed by: LYNN STEEL 04/23/2024 16:11 Sincerely, STACIE DELVALLE MD Electronically Signed: 04/23/2024 16:14 Thank you for referring CHAR DUMONT to the [email or web address]. PREVIOUS REPORT: [email or web address] [address] Name: Julia Garcia : 1980 Gender: F Referring Provider: Kaleb Price Exam: ULTRASOUND BREAST RIGHT Exam Start: 04/19/2024 Accn: [id number] HISTORY: Bilateral enhancing breast lesions on MRI. PROCEDURE: Ultrasound right breast. COMPARISON: MRI bilateral breasts with and without contrast from 04/12/2024. Ultrasound left breast from 04/19/2024. FINDINGS: Ovoid hypoechogenic lesion right breast retroareolar 1.4 x 0.7 x 1.2 cm has ovoid slightly lobulated margins and internal vascular flow. This corresponds to the enhancing MRI lesion. Fibroadenoma is possible. Malignancy is not excluded. IMPRESSION: Ovoid mass in the retroareolar right breast corresponds to the enhancing MRI lesion. Recommendation: Ultrasound-guided biopsy. BI-RADS 4 - SUSPICIOUS ABNORMALITY. BIOPSY SHOULD BE CONSIDERED. Transcribed by: LYNN STEEL 04/19/2024 15:29 Sincerely, STACIE DELVALLE MD Electronically Signed: 04/19/2024 15:38 Thank you for referring CHAR DUMONT to the [facility], [phone] MAMM Diagnostic Unilat Rt Di gital Reviewed date:04/30/2024 01:47:56 PM Interpretation: Performing Lab: Notes/Report: [email or web address] [address] Name: Julia Garcia : 1980 Gender: F Referring Provider: Kaleb Price Exam: MAMMOGRAM DIAGNOSTIC UNILATERAL RIGHT, DIGITAL Exam Start: 04/30/2024 Accn: [id number] INDICATION/HISTORY: Biopsy performed, assess for marker clip. PROCEDURE: Mammogram diagnostic unilateral right digital. The patient was taken to a dedicated mammography unit and a two-view digital unilateral mammogram was performed to verify the clip placement and to identify any complications. COMPARISON: Mammogram diagnostic bilateral with tomosynthesis from 03/13/2024. MRI breast bilateral with and without contrast from 04/12/2024. FINDINGS: The marker clip is at the site of the previous lesions. Other findings are unchanged from the prior exam. IMPRESSION: Postprocedure mammography verifies clip placement. Transcribed by: LYNN STEEL 04/30/2024 10:05 Sincerely, STACIE DELVALLE MD Electronically Signed: 04/30/2024 10:52 Thank you for referring CHAR DUMONT to the [facility], [id number] Surgical Path (TTC) Reviewed date:06/10/2024 03:44:24 PM Interpretation: Performing Lab:[facility], [address] [place] [address], [place], [address] PH:[phone] Notes/Report: Additional clinical and radiologic correlation is required. cassette. SPRING focal compression of ducts by a stroma of uniform cellularity that has a of breast tissue. One of the core segment shows benign ductal epithelium with Microscopic Findings: Received in formalin with two patient identifiers are multiple soft needle core Final Diagnosis: Cold ischemic time 8 minutes, formalin fixation time 13 hours 51 minutes. fragments of yellow-dhaliwal tissue ranging in size from 1.4 to 1.7 cm in length and Clinical Information: Time grossed: 2:39 p.m. Breast Needle Cores, Right Retroareolar of the biopsy pieces. Immunostaining for p63 (repeated) highlights a Breast Needle Cores, Right Retroareolar: Gross Description: BiRads 4. Ovoid mass right retroareolar and abnormal MRI and ultrasound. smaller fragments of tissue that include ductal epithelium at the edge of some (Case signed 05/13/2024 at 11:59) Niki Jacobs MD , Pathologist Benign breast tissue with fibroadenomatoid features, Report Electronically Signed Out see note. Specimen(s) Received: smooth/rounded architecture, features of fibroadenomatoid change. There are Case #: [id number] myoepithelial layer within the duct epithelium. Controls are adequate. Sections (2 H&E-stained slides with levels) show multiple needle core segments Note: averaging 0.2 cm in diameter. They are entirely submitted as received in one US Biopsy Right Breast Reviewed date:06/10/2024 03:45:13 PM Interpretation: Performing Lab: Notes/Report: ADDENDUM REPORT: [facility], [address] [address] Name: Julia Garcia : 1980 Gender: F Referring Provider: Kaleb Price Exam: ULTRASOUND BIOPSY BREAST RIGHT Exam Start: 04/30/2024 Accn: [id number] ADDENDUM: Pathology results were reviewed which describe fibroadenomatoid features. This is considered concordant. Recommendation: Follow-up diagnostic mammography and ultrasound after six months to exclude any growth. Transcribed by: LYNN STEEL 05/20/2024 11:38 Sincerely, STACIE DELVALLE MD Electronically Signed: 05/23/2024 14:04 Thank you for referring CHAR DUMONT to the [facility], [facility]. PREVIOUS REPORT: [facility], [place] [address] Name: Julia Garcia : 1980 Gender: F Referring Provider: Kaleb Price Exam: ULTRASOUND BIOPSY BREAST RIGHT Exam Start: 04/30/2024 Accn: [id number] HISTORY: Right breast retroareolar abnormality with ovoid hypoechoic nodule considered BI-RADS category 4. PROCEDURE: Ultrasound-guided biopsy right breast. The risks, benefits, and alternatives to the procedure are discussed with the patient. Principle risks of bleeding, infection, allergy to medication, disability, or are discussed. The patient provided informed consent. Time-out performed for procedural pause for check of patient identification and safety check of equipment. COMPARISON: No exams were available for comparison. FINDINGS: Initial ultrasound imaging demonstrates the retroareolar ovoid nodule wider than tall 1.4 x 0.4 cm with some internal vascular flow as seen on prior ultrasound. The skin was prepped and draped in standard sterile fashion and anesthetized with 1% lidocaine. Introducer needle placed to the marginof the lesion under direct ultrasound guidance. Four 14- gauge core biopsy specimens obtained using coaxial technique with Search[employer]era device. Ultrasound imaging of the needle at the site of the lesion with each pass. Q-clip biopsy marker placed in the biopsy cavity through the introducer needle after the final specimen is obtained. Triple verification of patient information on specimencontainer by myself and both technologists is verified with the patient. The patient tolerated the procedure well with minimal blood loss of less than 5 cc and no complications. IMPRESSION: Successful ultrasound-guided biopsy of right breast retroareolar nodule. Specimen submitted to pathology. Transcribed by: LYNN STEEL 04/30/2024 09:58 Sincerely, STACIE DELVALLE MD Electronically Signed: 04/30/2024 10:52 Thank you for referring CHAR DUMONT to the [facility], [facility]. [facility], [phone] Reason For Referral No Information Medications Medication SIG (Take, Route, Frequency, Duration) Notes Start Date End Date Status Qelbree 200 MG 1 capsule Orally Once a day Not-TakingAdderall XR 30 MG1 capsule in the morning Orally Once a dayNot-Taking Mounjaro 12.5 MG/0.5MLas directed SubcutaneousActiveMetoprolol Succinate ER 50 MG1 tablet Orally Once a dayActiveLosartan Potassium 100 MG1 tablet Orally Once a dayActiveLexapro 10 MG1 tablet Orally Once a dayActiveamLODIPine Besylate 5 MG 1 tablet Orally Once a dayActive Social History Tobacco Use: Social History Observation Description Date Details (start date - stop date) Never Smoker NA - NA Tobacco Control (Standard) Question Answer Notes Tobacco use: Nonsmoker Problems Problem Type SNOMED Code ICD Code Onset Dates Problem Status W/U Status Risk Notes Problem Panniculitis of neck (191740730) Panniculitis affecting regions of neck and back, site unspecified (M54.00) ActiveconfirmedProblemFibrocystic breast changes (96264177)Fibrocystic breast disease (N60.19)ActiveconfirmedProblemLocalized obesity (350911756)Abdominal pannus (E65)ActiveconfirmedProblemFibrocystic breast changes (43965994)Breast changes, fibrocystic, left (N60.12)ActiveconfirmedProblemFibrocystic breast changes (69418816)Breast fibrocystic disorder, right (N60.11)Activeconfirmed Vital Signs Blood pressure diastolic 63 mm Hg 07/09/2024 Ojwnyd1vg 8in in07/18/2024lood pressure jywenrth736 mm Hg07/09/20240488Wdviqh895 lbs07/18/2024BMI28.73 kg/m207/18/2024 Encounters Encounter Location Date Provider Diagnosis The [address] [place] [address] 07/18/2024 Kaleb Palakodeti Other injury of unspecified body region, initial encounter T14.8XXA and Postprocedural hematoma of skin and subcutaneous tissue following other procedure L76.32 Radiology [facility] [address] [place] [address] 04/12/2024 Radiology Provider Inconclusive mammogr am R92.[address] [address] 04/19/2024 Radiology Provider Inconclusive mammogr am R92.[address] [address] 04/30/2024 Radiology Provider Other abnormal and inconclusive findings on diagnostic imaging of breast R92.[address] [address] 04/30/2024 Radiology Provider Inconclusive mammogr am R92.2 [facility] [address] [place] [address] 04/17/2024 Kaleb Palakodeti Dense breast tissue R92.2 The [facility] [address] [place] [address] 04/23/2024 Kaleb Palakodeti Dense breast tissue R92.2 [facility] [address] [place] [address] 05/01/2024 Kaleb Palakodeti [facility] [id number] [place] [address]/09/2023Sarath PalakodetiAbdominal pannus E65[facility] [id number] [place] [address]/Sarath PalakodetiAbdominal pannus E65The [facility] [place] [id number] [place] [address]/Sarath PalakodetiAbdominal pannus E65[facility] [id number] [place] [address]/Sarath PalakodetiAbdominal pannus E65The [facility] [id number] [place] [address]/07/2023Sarath PalakodetiPostoperative seroma of subcutaneous tissue after non-dermatologic procedure L76.34 and Abdominal pannus E65The [facility] [id number] [place] [address]/03/2024Sarath Palakodeti Abdominal pannus E65 and Postoperative seroma of subcutaneous tissue after non- dermatologic procedure L76.34[facility] [id number] [place] [address]/Sarath PalakodetiPostoperative seroma of subcutaneous tissue after non-dermatologic procedure L76.34 ; Mastodynia N64.4 ; Dense breast tissue R92.2 and Abdominal pannus E65The [facility] [id number] [place] [address] 04/04/2024Sarath PalakodetiMastodynia N64.4 ; Abdominal pannus E65 and Dense breast tissue R92.2The [address] [address]/Sarath PalakodetiDense breast tissue R92.2 ; Other abnormal and inconclusive findings on diagnostic imaging of breast R92.8 ; Breast fibrocystic disorder, right N60.11 and Breast changes, fibrocystic, left N60.12The [address] [address]/11/2024Sarath PalakodetiBreast fibrocystic disorder, right N60.11 ; Breast changes, fibrocystic, left N60.12 ; Abdominal pannus E65 ; Dense breast tissue R92.2 and Other abnormal and inconclusive findings on diagnostic imaging of breast R92.8 Assessments Encounter Date Diagnosis (ICD Code) Assessment Notes Treatment Notes Treatment Clinical Notes Section Notes 02/07/2024 Abdominal pannus (ICD-10 - E65) Cindy was in the office today 2 weeks following panniculectomy. Left drain was removed in the office today and right drain was left in place. Patient should keep her incisions and drain site moist. Patient should follow up with me in 1 week and if she has any questions or concerns, she is welcome to call.02/14/2024 Abdominal pannus (ICD-10 - E65)Cindy is in the office today 3 weeks post- operatively from panniculectomy, Right drain was left in place due to the amount of collected drainage. Pictures were taken in the office today. Patient should continue to keep her incisions moist with Neosporin and wear abdominal compression as tolerated to reduce swelling. Patient should follow up with me in 1 week.02/21/2024bdominal pannus (ICD-10 - E65)Cindy is doing very well 4 week following panniculectomy. Right remaining drain was removed in the office today. I have discussed slowly returning to activity as tolerated. Ok to start light exerciseat 4 weeks post-operatively. Ok to return to most activity at 6 weeks post-operatively. Continue wearing abdominal compression band as long as tolerated to reduce swelling. I have instructed her to continue keeping her incisions moist with Vaseline petroleum jelly. Will follow up in 4 weeks and if she has any questions or concerns, she is welcome to call.03/20/2024 Postoperative seroma of subcutaneous tissue after non-dermatologic procedure (ICD-10 - L76.34)03/20/2024Mastodynia (ICD-10 - N64.4)02/28/2024bdominal pannus (ICD-10 - E65)Cindy was seen today with concerns of seroma 4 week s/p panniculectomy (01/25/24). During aspiration today, patient had vasovagal symptoms. 135 cc of seroma fluid was drained in the office today. Pt reported to have a Hx of vasovagal episodes, mos recent one was during her breast biopsy. I have stressed the importance of keeping her compression on as tight as tolerable to reduce swelling. I want to follow up with her in 1 week to monitor her progress. If she has any questions or concerns, she is welcome to call. 03/06/2024ostoperative seroma of subcutaneous tissue after non-dermatologic procedure (ICD-10 - L76.34)4Abdominal pannus (ICD-10 - E65) Cindy was seen today with concerns of seroma 5 week s/p panniculectomy. 85cc of seroma fluid was drained in the office today. I have stressed the importance of keeping her compression on as tight as tolerable to reduce swelling. I want to follow up with her in 1 week to monitor her progress. If shehas any questions or concerns, she is welcome to call. 4Abdominal pannus (ICD-10 - E65)04/04/2024Mastodynia (ICD-10 - N64.4) 5Abdominal pannus (ICD-10 - E65)04/12/2024Inconclusive mammogram (ICD- 10 - R92.2)04/19/2024Inconclusive mammogram (ICD-10 - R92.2)04/30/2024Other abnormal and inconclusive findings on diagnostic imaging of breast (ICD-10 - R92.8)04/30/2024Inconclusive mammogram (ICD-10 - R92.2)05/28/2024Dense breast tissue (ICD-10 - R92.2)Char was seen in the office today following recent breast MRI, ultrasound and biopsy. The imagingresults and the surgical pathology were reviewed by me with the patient. The pathology was consistent with benign fibroadenomatoid breast tissue. I've recommended for her to undergo yearly mammogram screening and yearly clinical breast exams by me. I discussed monthly self breast exams. Patient hasbeen doing well following her panniculectomy as well and patient should follow up with me in 3 months at 6 month s/p. If she has any questions or concerns, she is welcome to call.05/28/2024Other abnormal and inconclusive findings on diagnostic imaging of breast (ICD-10 - R92.8)07/09/2024 Breast fibrocystic disorder, right (ICD-10 - N60.11)5Breast changes, fibrocystic, left (ICD-10 - N60.12)07/18/2024Other injury of unspecified body region, initial encounter (ICD-10 - T14.8XXA)07/18/2024Postprocedural hematoma of skin and subcutaneous tissue following other procedure (ICD-10 - L76.32) 04/17/2024Dense breast tissue (ICD-10 - R92.2)04/23/2024Dense breast tissue (ICD-10 - R92.2)07/09/2024bdominal pannus (ICD-10 - E65) Cindy was seen in the office today 6 months post-operatively from panniculectomy. For the patient'sright breast small area of discoloration, we discussed in office punch biopsy. For her panniculectomy, the incisions are well healed. We will schedule for an in-office punch biopsy for her next visit. Patient is welcome to call if she has any questions or concerns, she is welcome to call. 5Breast fibrocystic disorder, right (ICD-10 - N60.11)04/04/2024Dense breast tissue (ICD-10 - R92.2)4Postoperative seroma of subcutaneous tissue after non-dermatologic procedure (ICD-10 - L76.34)Cindy was seen today with concerns of seroma 5 week s/p panniculectomy. 27cc of seroma fluid was dra lilly in the office today. I have stressed the importance of keeping her compression on as tight as tolerable to reduce swelling. I want to follow up with her in 1 week to monitor her progress. If shehas any questions or concerns, she is welcome to call.4Dense breast tissue (ICD-10 - R92.2)Cindy has had 4 mammograms this year for concern of BIRADS 3 lesion. I have discussed performing a breast MRI as she has dense fibrocystic breasts causing pain. 4Abdominal pannus (ICD-10 - E65)05/28/2024reast changes, fibrocystic, left (ICD-10 - N60.12)07/09/2024Dense breast tissue (ICD-10 - R92.2)07/09/2024 Other abnormal and inconclusive findings on diagnostic imaging of breast (ICD-10 - R92.8)04/04/2024OtherCindy is in the office today 10 weeks post-operatively from panniculectomy. Patient is very happy with the results. We discussed post- operative expectation and does not constantly wear compression. Patient has a breasts MRI scheduled for next Monday, and she should follow up with me in 2 weeks to review the results.07/18/2024Other Cindy is doing well. I have discussed with her watchful waiting of the right breast subcutaneous hematoma from core needle biopsy. This has improved since I have last seen her. 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 Plan Of Treatment Pending Test Test Name Order Date US Biopsy Left Breast 04/23/2024 US Breast Limited LT 04/23/2024 US Breast Limited RT 04/23/2024 MAMM DIAG UNILAT LT SOREN 3D GLOBAL 04/23 MAMM DIAG UNILAT RT SOREN 3D GLOBAL 04/23 Insurance Providers Payer Name Payer Address Payer Phone Subscriber Number Group Number Insured Name Patient Relationship to Insured Coverage Start Date Coverage End Date AN[employer]M ACCESS PPO PLUS LOCAL PLAN [address] [place] [address] [id number] Garth Dumont Spouse - patient is the spouse of the insured 5 Medical (General) History Medical History History ICD Code history of obesity Surgical History Surgery Date(Month/Year) breast biopsy with marker endometrial /2024cholecystectomyappendectomycesarean sectioncerclage
--- OUTSIDE RECORDS SUMMARY | 2025-02-05 08:37 | XMS_ITS | Encounter Summary ---
Author Organization [facility] Address [address] [place] [address] Care Team Providers Care Pediatric Cns Name Role Phone Radha Sanchez MD Primary Care Provider [phone] Encounter Details DateTypeDepartmentCare Team (Latest Contact Info)Apneonsowme20/20/2024linisync Result Encounter [facility] External Department Unsolicited Sanjeev Lopez, DO [address] [facility] [place] [address] Social History Tobacco UseTypesPacks/DayYears UsedDateSmoking Tobacco: NeverSmokeless Tobacco: NeverAlcohol UseStandard Drinks/WeekCommentsNot Currently0 (1 standard drink = 0.6 oz pure alcohol)Alcohol: 1 or 2 drinks on typical day/monthly or less. Caffeine: 1-2 cups/day teaCommentsNoSex and Gender InformationValueDate RecordedSex Assigned at LcpwlZspsqm17/21/2023 8:59 AM EDTLegal SexFemale 06/15/2022 7:26 PM EDTGender LkboicoyNfbckd48/21/2023 8:59 AM EDTSexual HrnllishntpHsttmcol15/21/2023 8:59 AM EDTdocumented as of this encounter Plan of Treatment DateTypeDepartmentCare Team (Latest Contact Info)Cuqvqimvaxs13/08/2025 11:00 AM ESTOffice Visit [facility] [address] [place] [address] Georgi Carreon, NOE [address] [place] [address] 04/02/2025 10:30 AM ESTOffice Visit [facility] [address] [place] [address] Tee Carreon DPM [address], [place] [address] 04/18/2025 11:00 AM ESTOffice Visit [facility] [address] [place] [address] Georgi Carreon DPM [address] [place], [place] [address] 07/29/2025 1:00 PM EDTOffice Visit [facility] [address] [facility] [place] [phone] Sanejev Lopez, DO [address] [facility] [address] [place], [place] [address] documented as of this encounter Procedures Procedure NamePriorityDate/TimeAssociated DiagnosisCommentsMM STEREOTACTIC LOC LT05/23/2023 2:37 PM EST documented in this encounter Results * MM STEREOTACTIC LOC LT (05/23/2023 2:37 PM EST)Anatomical RegionLaterality ModalityRadiographic ImagingSpecimen (Source)Anatomical Location / Laterality Collection Method / VolumeCollection TimeReceived Time05/23/2023 2:37 PM EST Narrative 05/23/2023 2:38 PM EST [facility] ?[address] ? [place] [address] ? Mammography Report ? Signed ? Patient: JULIA,CHAR D ?MR#: [id number] ?? : 1980 ?Acct:[id number] ?? Age/Sex: 42 / F ?ADM Date: 02/20/24 ?? Loc: MAMMO ? Attending Dr: Sanjeev Garcia.O. ? Ordering Physician: Sanjeev Lopez D.O. ?Results: ? Date of Service: 05/23/23 ?Follow Up: ? Procedure(s): MM stereotactic loc LT ?? Accession Number(s): [id number] ? cc: Radha Sanchez M.D.; Sanjeev Lopez D.O. ? Patient Name: ? CHAR DUMONT ? MR#: [id number] ? : 1980 ? Exam Date: 05/23/2023 [...] 1438 ? DD/ 1437 ? TD/TT: ? Process Automation Engineer: Procedure Note Radiology, Radiologist, MD - 05/24/2023 [place] [address] Mammography Report Signed Patient: CHAR DUMONT DMR#: [id number] : 1980Acct:[id number] Age/Sex: 42 / FADM Date: 05/23/23 Loc: MAMMO Attending Dr: Sanjeev Lopez D.O. Ordering Physician: Sanjeev Lopez D.O.Results: Date of Service: 05/23/23Follow Up: Procedure(s): MM stereotactic loc LT Accession Number(s): [id number] cc: Radha Sanchez M.D.; Sanjeev Lopez D.O. Patient Name: CHAR DUMONT MR#: [id number] : 1980 Exam Date: 05/23/2023 Ordering Doctor: [...] M.D. Signed By:05/23/23 1438 DD/ 1437 TD/TT: Process Automation Engineer: Authorizing ProviderResult TypeResult StatusCorey Jessica DOIMG XR PROCEDURESFinal Result documented in this encounter Visit Diagnoses Not on filedocumented in this encounter Care Teams Team MemberRelationshipSpecialtyStart DateEnd Date Radha Sanchez MD [address] [place] [address] PCP - GeneralFamily Medicine12/12/22documented as of this encounter
--- OUTSIDE RECORDS SUMMARY | 2025-02-05 08:37 | XMS_ITS | Encounter Summary ---
Author Organization [facility] Address [address] [place] [address] Care Team Providers Care Warehouse Inventory Clerk Name Role Phone Radha Sanchez MD Primary Care Provider [phone] Encounter Details DateTypeDepartmentCare Team (Latest Contact Info)Wijmtoyctfa77/29/2025amboo flowsheet [facility] [address] [place] [address] Georgi Carreon DPM [address] [place], [place] [phone] Social History Tobacco UseTypesPacks/DayYears UsedDateSmoking Tobacco: NeverSmokeless Tobacco: NeverAlcohol UseStandard Drinks/WeekCommentsNot Currently0 (1 standard drink = 0.6 oz pure alcohol)Alcohol: 1 or 2 drinks on typical day/monthly or less. Caffeine: 1-2 cups/day teaCommentsNoSex and Gender InformationValueDate RecordedSex Assigned at YqsumTvwtvw48/21/2023 8:59 AM EDTLegal SexFemale 06/15/2022 7:26 PM EDTGender SfeooxxuVosdxa87/21/2023 8:59 AM EDTSexual PvsuyexmeajZdkoycjx04/21/2023 8:59 AM EDTdocumented as of this encounter Plan of Treatment DateTypeDepartmentCare Team (Latest Contact Info)Wocyjhmshjc51/08/2025 11:00 AM ESTOffice Visit [facility] [address] [place] [address] Georgi Carreon DPM [address] [place], [place] [address] 04/02/2025 10:30 AM ESTOffice Visit [facility] [address] [place] [address] Tee Carreon DPM [address], [place] [address] 04/18/2025 11:00 AM ESTOffice Visit [facility] [address] [place] [phone] Georgi Carreon, NOE [address] [place] [address] 07/29/2025 1:00 PM EDTOffice Visit [facility] [address] [place] [phone] Sanjeev Lopez DO [address] [place] [address] documented as of this encounter Visit Diagnoses Not on filedocumented in this encounter Care Teams Team MemberRelationshipSpecialtyStart DateEnd Date Radha Sanchez MD [address] [facility] [place] [address] PCP - GeneralFamily Medicine12/12/22documented as of this encounter
--- OUTSIDE RECORDS SUMMARY | 2025-02-05 08:37 | XMS_ITS | Encounter Summary ---
Author Organization [facility] Address [address] [place] [address] Care Team Providers Care Gas Pump Attendant Name Role Phone Radha Sanchez MD Primary Care Provider [phone] Encounter Details DateTypeDepartmentCare Team (Latest Contact Info)Vncpapzdjka41/11/2024linisync Result Encounter [facility] External Department Unsolicited Sanjeev Lopez, DO [address] [facility] [place] [address] Social History Tobacco UseTypesPacks/DayYears UsedDateSmoking Tobacco: NeverSmokeless Tobacco: NeverAlcohol UseStandard Drinks/WeekCommentsNot Currently0 (1 standard drink = 0.6 oz pure alcohol)Alcohol: 1 or 2 drinks on typical day/monthly or less. Caffeine: 1-2 cups/day teaCommentsNoSex and Gender InformationValueDate RecordedSex Assigned at ZqlvhIkupxa55/21/2023 8:59 AM EDTLegal SexFemale 06/15/2022 7:26 PM EDTGender JcqiriasEyroop23/21/2023 8:59 AM EDTSexual UgpoyarwfhhTyayxdus94/21/2023 8:59 AM EDTdocumented as of this encounter Plan of Treatment DateTypeDepartmentCare Team (Latest Contact Info)Upbtacbagoz38/08/2025 11:00 AM ESTOffice Visit [facility] [address] [place] [phone] Georgi Carreon, NOE [address] [place] [address] 04/02/2025 10:30 AM ESTOffice Visit [facility] [address] [place] [address] Tee Carreon DPM [address] [place], [place] [address] 04/18/2025 11:00 AM ESTOffice Visit [facility] [address] [place] [address] Georgi Carreon DPM [address], [place] [address] 07/29/2025 1:00 PM EDTOffice Visit [facility] [address] [facility] [place] [phone] Sanjeev Lopez, DO [address] [facility] [address] [place] [place], [place] [address] documented as of this encounter Procedures Procedure NamePriorityDate/TimeAssociated DiagnosisCommentsUS BREAST BI LIMITED 03/13/2024 2:58 PM EST documented in this encounter Results * US BREAST BI LIMITED (03/13/2024 2:58 PM EST)Anatomical RegionLaterality ModalityOtherSpecimen (Source)Anatomical Location / LateralityCollection Method / VolumeCollection TimeReceived Time03/13/2024 2:58 PM EST Narrative 03/13/2024 2:59 PM EST [facility] ?[address] ? [place] [address] ? Ultrasound Report ? Signed ? Patient: JULIA,CHAR D ?MR#: [id number] ?? : 1980 ?Acct:[id number] ?? Age/Sex: 43 / F ?ADM Date: 03/13/24 ?? Loc: MAMMO ? Attending Dr: Sanjeev Lopez D.O. ? Ordering Physician: Sanjeev oLpez D.O. ?? Date of Service: 03/13/24 ?? Procedure(s): US breast BI limited ?? Accession Number(s): [id number] ? cc: Radha Sanchez M.D.; Sanjeev Lopez D.O. ? Patient Name: ? CHAR DUMONT ? MR#: [id number] ? : 1980 ? Exam Date: 03/13/2024 [...] at age 67. ? LOCATION: ? [facility] ? BREAST COMPOSITION: ? There are [...] 1459 ? DD/ 1458 ? TD/TT: ? Ladle Watcher: Procedure Note Radiology, Radiologist, MD - 03/13/2024 [place] [address] Ultrasound Report Signed Patient: CHAR DUMONT DMR#: [id number] : 1980Acct:[id number] Age/Sex: 43 / FADM Date: 03/13/24 Loc: MAMMO Attending Dr: Sanjeev Lopez D.O. Ordering Physician: Sanjeev Lopez D.O. Date of Service: 03/13/24 Procedure(s): US breast BI limited Accession Number(s): [id number] cc: Radha Sanchez M.D.; Sanjeev Lopez D.O. Patient Name: CHAR DUMONT MR#: [id number] : 1980 Exam Date: 03/13/2024 Ordering Doctor: [...] stomach cancer at age 67. LOCATION: [facility] BREAST COMPOSITION: There are scattered areas [...] M.D. Signed By:03/13/24 1459 DD/ 1458 TD/TT: Ladle Watcher: Authorizing ProviderResult TypeResult StatusCorey Jessica DOCLINISYNC IMAGINGFinal Result documented in this encounter Visit Diagnoses Not on filedocumented in this encounter Care Teams Team MemberRelationshipSpecialtyStart DateEnd Date Radah Sanchez MD [address] [place] [address] PCP - GeneralFamily Medicine12/12/22documented as of this encounter
--- OUTSIDE RECORDS SUMMARY | 2025-02-05 08:37 | XMS_ITS | Clinical Summary ---
Author Organization [facility] Address [address] [place] [address] Care Team Providers Care Commercial Airplane Pilot Name Role Phone Radha Sanchez MD Primary Care Provider [phone] Allergies Active AllergyReactionsCriticalityNoted DateCommentsTopiramateSwellingLow 12/19/2013 Medications MedicationSigDispense QuantityRefillsLast FilledStart DateEnd DateStatus Alcohol Swabs (B-D SINGLE USE SWABS REGULAR) pads 4Active Lancets (OneTouch Delica Plus Hslhwn61G) misc 4Active MONOJECT 3CC SYRINGE 3 ML [...] migraine without aura, not intractable, without status rxtujqgwhyv10/06/2023Frequent headaches 10/06/2022Hallux valgus (acquired), left foot10/06/2022Insulin resistance 10/06/2022Labial cyst10/06/20224863Oznvdpwllcq11/06/2023Morbid lmbhusi4810/06/2022 Polycystic ljbsqpb1910/06/2022Weight gain10/06/2022 Encounters DateTypeDepartmentCare SozsEgvxueulqcx97/03/2025linisync Result Encounter [facility] External Department Unsolicited Sanjeev Lopez DO 01/31/2025Telephone [facility] [address] [place] [address] [place] [phone] Natalia Choi LPN 01/29/2025 9:25 AM EDTAncillary Procedure [facility] [address] [place] [address] 01/29/2025 9:00 AM EDTOffice Visit [facility] [address] [place] [address] Georgi Carreon DPM S/P foot surgery (Primary Dx); 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; Acquired deformity of right toe; Tailor's bunionette, right01/29/2025amboo flowsheet [facility] [address] [place] [address] Georgi Carreon, DPM 01/29/20251476Vyizbe54/27/0180Vowsxa25/22/0899Zidint03/09/2025Telephone [facility] [address] [facility] [address] Natalia Choi, JAVA SOFTWARE ENGINEER 12/27/2024Refill [facility] [address] [facility] [address] Sanjeev Lopez DO Insulin resistance; Weight gain12/24/2024Telephone [facility] [address] [facility] [address] Natalia Choi, JAVA SOFTWARE ENGINEER 11/16/2024Refill [facility] [address] [facility] [address] Sanjeev Lopez, Nauseafrom [...] teaCommentsNoSex and Gender InformationValueDate RecordedSex Assigned at TjyxvYgnsjg71/21/2023 8:59 AM EDTLegal NqhYxlewm59/15/2023 7:26 PM EDTGender JeiobowfOfbudx79/21/2023 8:59 AM EDTSexual OrientationStraight 09/21/2022 8:59 AM EDT Last Filed Vital Signs Vital SignReadingTime TakenCommentsBlood Rtpcegcl964/8204 2:12 PM EDT Bnkpu8244 8:52 AM ZDRFpcjsdpzzoz97.5 ??C (97.7 ??F)08/02/2023 8:52 AM EDTRespiratory Uyvp113708/02/2023 8:52 AM EDTOxygen Dtfimmosda56%08/02/2023 8:52 AM EDTInhaled Oxygen Concentration--Cnzttx83.2 kg (190 lb)01/29/2025 9:00 AM EDT Eormxn101.1 cm (5' 5 )01/29/2025 9:00 AM EDTBody Mass Index31.6210 9:00 AM EDT Plan of Treatment DateTypeDepartmentCare Team (Latest Contact Info)Sabhvbogyen82/08/2025 11:00 AM ESTOffice Visit [facility] [address] [place] [address] Georgi Carreon DPM [address] [place] [address] 04/02/2025 10:30 AM ESTOffice Visit [facility] [address] [place] [address] Tee Carreon DPM [address] [place] [address] 04/18/2025 11:00 AM ESTOffice Visit [facility] [address] [place] [address] Georgi Carreon DPM [address] [place] [address] 07/29/2025 1:00 PM EDTOffice Visit [facility] [address] [facility] [phone] Sanjeev Lopez DO [address] [facility] [place] [address] Procedures Procedure NamePriorityDate/TimeAssociated DiagnosisCommentsMLR HEMOGLOBIN A1C Egajvoa7402/03/2025 9:13 AM EST ALL THYROXINE (T4) PTFSBdwqlgo82/03/2025 9:13 AM EST CCF SXHELSQJWtuktgu45/03/2025 9:13 AM EST ALL THYROID STIM EWQMODXEtrtzga77/03/2025 9:13 AM EST ALL THYROXINE (T4)Wwcsiko5202/03/2025 9:13 AM EST ALL T3 NORDPxjqrii71/03/2025 9:13 AM EST [facility] GLUCOSE TACOHDqkxajj49/03/2025 9:13 AM EST XR FOOT 3+ VIEWS LSXPUpesspt36/29/2025 9:23 AM EDT S/P foot surgery from Last 3 Months Results * [facility] GLUCOSE BLOOD (02/03/2025 9:13 AM EST)ComponentValueRef RangeTest Method Analysis TimePerformed AtPathologist RghawjupdDGRSBPU9132 - 106 mg/dLTBH Specimen (Source)Anatomical Location / LateralityCollection Method / Volume Collection TimeReceived Time02/03/2025 9:13 AM EST02/03/2025 9:15 AM EST Narrative [facility] - 02/03/2025 10:26 AM EST Authorizing ProviderResult TypeResult StatusCorey Jessica DOCLINISYNCFinal Result Performing OrganizationAddressCity/State/ZIP CodePhone Number [facility] * MLR HEMOGLOBIN A1C (02/03/2025 9:13 AM EST)ComponentValueRef RangeTest Method Analysis TimePerformed AtPathologist SignatureGLYCOHEMOGLOBIN A1C4.94.5 - 6.2 %TBHComment: ADA RECOMMENDED LIMIT 4.0 - 6.0 ADA THERAPEUTIC TARGET < 7.0 ACTION SUGGESTED > 7.0 ESTIMATED AVERAGE DPBBMDS93he/dLTBHSpecimen (Source)Anatomical Location / LateralityCollection Method / VolumeCollection TimeReceived Time02/03/2025 9:13 AM EST02/03/2025 9:15 AM EST Narrative [facility] - 02/03/2025 10:59 AM EST Authorizing ProviderResult TypeResult StatusCorey Jessica DOCLINISYNCFinal Result Performing OrganizationAddressCity/State/ZIP CodePhone Number [facility] * CCF FERRITIN (02/03/2025 9:13 AM EST)ComponentValueRef RangeTest Method Analysis TimePerformed AtPathologist OmriordauQUQQYCGG52.08.0 - 252.0 ng/mLTBH Specimen (Source)Anatomical Location / LateralityCollection Method / Volume Collection TimeReceived Time02/03/2025 9:13 AM EST02/03/2025 9:15 AM EST Narrative [facility] - 02/03/2025 10:48 AM EST Authorizing ProviderResult TypeResult StatusCorey Jessica DOCLINISYNCFinal Result Performing OrganizationAddressCity/State/ZIP CodePhone Number [facility] * ALL THYROXINE (T4) FREE (02/03/2025 9:13 AM EST)ComponentValueRef RangeTest MethodAnalysis TimePerformed AtPathologist SignatureFREE T40.970.76 - 1.46 ng/dLTBHSpecimen (Source)Anatomical Location / LateralityCollection Method / VolumeCollection TimeReceived Time02/03/2025 9:13 AM EST02/03/2025 9:15 AM EST Narrative [facility] - 02/03/2025 10:48 AM EST Authorizing ProviderResult TypeResult StatusCorey Jessica DOCLINISYNCFinal Result Performing OrganizationAddressCity/State/ZIP CodePhone Number [facility] * ALL THYROXINE (T4) (02/03/2025 9:13 AM EST)ComponentValueRef RangeTest Method Analysis TimePerformed AtPathologist SignatureT4 THYROXINE9.304.80 - 13.90 ug/dLTBHSpecimen (Source)Anatomical Location / LateralityCollection Method / VolumeCollection TimeReceived Time02/03/2025 9:13 AM EST02/03/2025 9:15 AM EST Narrative [facility] - 02/03/2025 10:26 AM EST Authorizing ProviderResult TypeResult StatusCorey Jessica DOCLINISYNCFinal Result Performing OrganizationAddressCity/State/ZIP CodePhone Number [facility] * ALL THYROID STIM HORMONE (02/03/2025 9:13 AM EST)ComponentValueRef RangeTest MethodAnalysis TimePerformed AtPathologist SignatureTHYROID STIMULATING HORMONE3.1050.358 - 3.740 uIU/mLTBHSpecimen (Source)Anatomical Location / LateralityCollection Method / VolumeCollection TimeReceived Time02/03/2025 9:13 AM EST02/03/2025 9:15 AM EST Narrative [facility] - 02/03/2025 10:26 AM EST Authorizing ProviderResult TypeResult StatusCorey Jessica DOCLINISYNCFinal Result Performing OrganizationAddressCity/State/ZIP CodePhone Number [facility] * ALL T3 FREE (02/03/2025 9:13 AM EST)ComponentValueRef RangeTest MethodAnalysis TimePerformed AtPathologist SignatureFREE T32.372.18 - 3.98 pg/mLTBHSpecimen (Source)Anatomical Location / LateralityCollection Method / VolumeCollection TimeReceived Time02/03/2025 9:13 AM EST02/03/2025 9:15 AM EST Narrative [facility] - 02/03/2025 10:26 AM EST Authorizing ProviderResult TypeResult StatusCorey Jessica DOCLINISYNCFinal Result Performing OrganizationAdd[facility]/State/ZIP CodePhone Number [facility] * XR foot 3+ views left (01/29/2025 [...] TypeResult StatusAnthmomo Carreon DPMIMG XR PROCEDURESFinal Result from Last 3 Months Insurance Care Teams Team MemberRelationshipSpecialtyStart DateEnd Date Radha Sanchez MD [address] [place] [address] PCP - GeneralFamily Medicine12/12/22
--- OUTSIDE RECORDS SUMMARY | 2025-02-05 08:37 | XMS_ITS | Clinical Summary ---
Author Organization [employer] Address [address] [place] [address] Care Team Providers Care Verifying Machine Operator Name Role Phone Unavailable Primary Care Provider Unavailabl e Allergies Active AllergyReactionsCriticalityNoted DateCommentsTopiramateSwellingLow 12/19/2013 Medications MedicationSigDispense QuantityRefillsLast FilledStart DateEnd DateStatus levonorgestrel IUD (MIRENA) 20 mcg/24 hour (5 years) IUD 1 each by Intrauterine route once. Inserted ctive Active Problems ProblemNoted DateDiagnosed DatePolycystic ovarian /11/2014Obesity 10/11/2013Irritable bowel heoeumfp02/11/1445Mqynrpsfr46/11/2014Migraines 10/11/2013Myalgia and /06/2013 Resolved Problems ProblemNoted DateDiagnosed DateResolved DatePolycystic fqovuds5002/06/2013 12/19/20132486Nxsqcvcn55 Family History Medical HistoryRelationCommentsDepressionFatherRelationStatusCommentsFather Social History Tobacco UseTypesPacks/DayYears UsedDateSmoking Tobacco: NeverAlcohol UseStandard Drinks/WeekCommentsNo0 (1 standard drink = 0.6 oz pure alcohol)Comments NoSex and Gender InformationValueDate RecordedSex Assigned at BirthNot on file Legal HkvBmppmm90/11/2014 4:06 PM EDTGender IdentityNot on fileSexual OrientationNot on file Last Filed Vital Signs Vital SignReadingTime TakenCommentsBlood Oqchiiut698/7003 11:12 AM EST Dgrzd3275 2:56 PM EMPAlagkmomsvv99.7 ??C (99.9 ??F)06/04/2014 11:12 AM ESTRespiratory Rate--Oxygen Saturation--Inhaled Oxygen Concentration--Weight 128.3 kg (282 lb 12.8 oz)06/04/2014 11:12 AM CBHVcxabl583.1 cm (5' 5 )06/04/2014 11:12 AM ESTBody Mass Index47.0606/04/2014 11:12 AM EST Plan of Treatment Health MaintenanceDue DateLast DvmiMbyhncenSfxekzdzs12/30/1983Hepatitis B Vaccines (1 of 3 - 19+ 3-dose series)11/30/20019637Dnkinvz-Taxsampibi-Jbndhrtrk Vaccines (1 - Tdap)2001Pap Smear10/11/, 07/29/2008Cervical Cancer Lcfspucvw91/11/2019Pap + HPV frWthjazd55Influenza Vaccine(s) (#1)2024Shingles Vaccine (Non-Medicare; Age 50+ or [...] FOR WOMEN > OR = 30 YRS EDDTffhsnh90/11/2014 12:00 AM EDT Well woman exam with routine gynecological exam Cervical cancer screening from Last 3 Months or Most Recently Relevant to Health Maintenance Results * FWML PAP + HPV High Risk Pool and 16/18 Genotyping ([id number]) (10/11/2013 12:00 AM EDT)ComponentValueRef RangeTest MethodAnalysis TimePerformed AtPathologist SignatureFWML PapsmearSEE [place] [facility] Comment: [id number] Source: Cervical/Vaginal/Endocervical Testing/Results: Sent for HPV High Risk Pool and Brittani 16/18 Testing Clinical History: LMP: ??6//14. ??IUD. ?? Test/Results: Negative for intraepithelial Lesions or Malignancy Electronically Signed By: HARRY RAMIREZ (ASCP) Comments: This specimen was screened by an FDA approved automated imaging system along with an additional manual rescreening by a honey blender and/or pathologist. Adequacy: Specimen is adequately prepared and documented. No endocervical cells present [facility] DNA (High/Low risk) GenotypingSEE BELOWSAXON [facility] FRANCIS HEALTHCAREComment: [id number] Results: Specimen: ??Thin Prep Results: ?HPV 16: [...] for detection of HPV with the Skylar Fairdeh 4800 HPV molecular assay. This test is performed at [facility], [address] [place] [address]. This test was developed and its performance characteristics determined by [facility] as a self-validated assay for SurePath and Thin Prep pap specimens. ?? It is approved by the U.S. Food and Drug Administration for ThinPrep. ??This test has not been approved by the FDA or validated by [facility]ITALfor anal paps or urethra swabs. Electronically Signed By: FREEMAN Specimen (Source)Anatomical Location / LateralityCollection Method / Volume Collection TimeReceived UutkSbmsa22 Narrative Authorizing ProviderResult TypeResult StatusCinrosana Mason NP PATHOLOGY/CYTOLOGY ORDERABLESFinal ResultPerforming OrganizationAddress City/State/ZIP CodePhone Number [facility] [address] [place] [address] from Last 3 Months or Most Recently Relevant to Health Maintenance Insurance
--- OUTSIDE RECORDS SUMMARY | 2025-02-05 08:37 | XMS_ITS | Encounter Summary ---
Author Organization [facility] Address [address] [place] [address] Care Team Providers Care Water Meter Installer Name Role Phone Radha Sanchez MD Primary Care Provider [phone] Encounter Details DateTypeDepartmentCare Team (Latest Contact Info)Pouavucmhde90/20/2024linisync Result Encounter [facility] External Department Unsolicited Sanjeev Lopez, DO [address] [place] [address] Social History Tobacco UseTypesPacks/DayYears UsedDateSmoking Tobacco: NeverSmokeless Tobacco: NeverAlcohol UseStandard Drinks/WeekCommentsNot Currently0 (1 standard drink = 0.6 oz pure alcohol)Alcohol: 1 or 2 drinks on typical day/monthly or less. Caffeine: 1-2 cups/day teaCommentsNoSex and Gender InformationValueDate RecordedSex Assigned at WzwwlOxarfw21/21/2023 8:59 AM EDTLegal SexFemale 06/15/2022 7:26 PM EDTGender YoiqkmmvDasmsa84/21/2023 8:59 AM EDTSexual FrrewhvfofoCtulydth62/21/2023 8:59 AM EDTdocumented as of this encounter Plan of Treatment DateTypeDepartmentCare Team (Latest Contact Info)Yhhyzybtvui41/08/2025 11:00 AM ESTOffice Visit [facility] [address] [place] [phone] Georgi Carreon, NOE [address] [place] [address] 04/02/2025 10:30 AM ESTOffice Visit [facility] [address] [place] [address] Tee Carreon DPM [address], [place] [address] 04/18/2025 11:00 AM ESTOffice Visit [facility] [address] [place] [address] Georgi Carreon DPM [address], [place] [phone] 07/29/2025 1:00 PM EDTOffice Visit [facility] [address] [place] [phone] Sanjeev Lopez, [address] [place], [place] [phone] documented as of this encounter Procedures Procedure NamePriorityDate/TimeAssociated DiagnosisCommentsMM POST BIOPSY LT 05/23/2023 2:38 PM EST documented in this encounter Results * MM POST BIOPSY LT (05/23/2023 2:38 PM EST)Anatomical RegionLateralityModality OtherSpecimen (Source)Anatomical Location / LateralityCollection Method / VolumeCollection TimeReceived Time05/23/2023 2:38 PM EST Narrative 05/23/2023 2:39 PM EST [facility] ?[address] ? [place] [address] ? Mammography Report ? Signed ? Patient: JULIA,CHAR D ?MR#: [id number] ?? : 1980 ?Acct:[id number] ?? Age/Sex: 42 / F ?ADM Date: 02/20/24 ?? Loc: MAMMO ? Attending Dr: Sanjeev Garcia.O. ? Ordering Physician: Sanjeev Lopez D.O. ?Results: ? Date of Service: 05/23/23 ?Follow Up: ? Procedure(s): MM post biopsy LT ?? Accession Number(s): [id number] ? cc: Radha Sanchez M.D.; Sanjeev Lopez D.O. ? Patient Name: ? CHAR DUMONT ? MR#: [id number] ? : 1980 ? Exam Date: 05/23/2023 [...] 1439 ? DD/ 1438 ? TD/TT: ? Insole Doubler: Procedure Note Radiology, Radiologist, MD - 05/23/[address] [address] Mammography Report Signed Patient: CHAR DUMONT DMR#: [id number] : 1980Acct:[id number] Age/Sex: 42 / FADM Date: 05/23/23 Loc: MAMMO Attending Dr: Sanjeev Lopez D.O. Ordering Physician: Sanjeev Lopez D.O.Results: Date of Service: 05/23/23Follow Up: Procedure(s): MM post biopsy LT Accession Number(s): [id number] cc: Radha Sanchez M.D.; Sanjeev Lopez D.O. Patient Name: CHAR DUMONT MR#: [id number] : 1980 Exam Date: 05/23/2023 Ordering Doctor: [...] Peterson M.D. Signed By:05/23/23 1439 DD/ TD/TT: Insole Doubler: Authorizing ProviderResult TypeResult StatusCorey Jessica DOCLINISYNC IMAGINGFinal Result documented in this encounter Visit Diagnoses Not on filedocumented in this encounter Care Teams Team MemberRelationshipSpecialtyStart DateEnd Date Radha Sanchez MD [address] [place] [phone] PCP - GeneralFamily Medicine12/12/22documented as of this encounter
--- OUTSIDE RECORDS SUMMARY | 2025-02-05 08:37 | XMS_ITS | Clinical Summary ---
Author Organization [facility] Address [facility] [address] [place] [address] Care Team Providers Care Clinical Research Physician Name Role Phone Radha Sanchez MD Primary Care Provider [phone] Allergies Active AllergyReactionsCriticalityNoted ErmrCyfbdhcgAxcicmiwOdccQtrddm76/24/2024 Pt states allergic to paper tape TopiramateSwelling,Other [...] mg total) by mouth in the morning.6Active iwaazfosygcs-wsk-weft-FA-vit K 18 mg iron-400 mcg-25 mcg tablet [...] empty no. 00, capsule Compound medication for cwcozrnfznpi15Discontinued(Patient Stopped On Own) tirzepatide (MOUNJARO) 2.5 mg/0.5 mL pen injector Inject 2.5 mg under the skin every 7 days. Cnfulzl4401/15/2025Discontinued aspirin 325 mg tablet Take 1 tablet (325 mg total) by mouth in the morning.01/15/2025Discontinued (Patient Stopped On Own) Active Problems ProblemNoted DateDiagnosed DatePanniculitis affecting back01/25/2024Generalized anxiety zcmschnu27/02/2024ttention deficit hyperactivity disorder (ADHD), predominantly inattentive type11/22/2023Mallet deformity of right ring finger 05/16/2023reast pain10/06/2022Frequent totsmjesy00/06/2023Hallux valgus (acquired), left foot10/06/2022Insulin puyzbfuegx54/06/2023Labial cyst10/06/2022 Djzwyahikgu66/06/2023olycystic rlxsaie1810/06/2022Weight gain10/06/2022History of multiple wzfgdzkafcvp06/31/5439Fjqdpbnsyy36/31/2022Neurogenic ygrfynf0612/01/2021 Psychophysiological ahqlgwdq65/31/2022Migraine without aura and without status migrainosus, not idzgoajpwpn51/31/2022Vitamin B12 cnhuyctsfz82/31/2022DDD (degenerative disc disease), qhulgu682Decreased movements in third ocbguivcg77/06/2020History of PCOS01/24/2017Class 3 obesity in adult01/24/2017 Insulin controlled gestational diabetes mellitus (GDM) in second trimester 01/24/2017BMI 45.0-49.9, adult10/17/2016History of spontaneous 09/05/2016History of fiprzqyj45/05/2017 Encounters * This document contains information received from the source organization and may not represent a complete record from that organization. DateTypeDepartmentCare JfrtLcgibadoowj81/15/5222Issnri95/03/2025Orders Only [facility] [address] [place] [address] [place] [address] Jo Meyer APRN-RASHAUN 11/05/2024Orders Only [facility] [address] [place] [address] Jo Meyer, DAIRY STORE MANAGER-MANAGER ACCESS from Last 3 Months Family History Medical HistoryRelationNameCommentsCancerMaternal GrandfatherstomachHeart attack Maternal GrandfatherHeart diseaseMaternal GrandfatherHypertensionMaternal GrandfatherStrokeMaternal GrandfatherThyroid diseaseMaternal Grandfather Alzheimer's diseaseMaternal GrandmotherHypertensionMaternal GrandmotherIrritable bowel syndromeMaternal GrandmotherIrritable bowel syndromeMotherThyroid disease MotherRelationNameStatusCommentsFatherAliveMaternal GrandfatherDeceasedMaternal GrandmotherDeceasedMotherAlive Social History Tobacco UseTypesPacks/DayYears UsedDateSmoking Tobacco: NeverSmokeless Tobacco: Never Tobacco Cessation:Counseling Given: Not Answered Alcohol UseStandard Drinks/WeekCommentsNo0 (1 standard drink = 0.6 oz pure alcohol)[facility] UtilitiesAnswerDate RecordedIn the past 12 months has the electric, gas, oil, or water company threatened to shut off services in your home?No 01/26/2024HQ-2AnswerDate RecordedTotal Jaxlq3622PRAPARE - Transportation AnswerDate RecordedIn the past 12 [...] as a part of a household?No 01/26/2024hildcareAnswerDate MjjtciswJprdadlvlNuzzzly81/12/2019EmploymentAnswer Date LbgutggaTznxqhmlyrArzbbec66/12/2019Hunger ScreeningAnswerDate Recorded Within the past 12 months we worried whether our food would run out before we got money to buy more.Never True10/21/2024Within the past 12 months the food we bought just didn't last and we didn't have money to get more.Never True 10/21/2024Purpose - LifeAnswerDate RecordedPurpose and direction in lifeUnknown 1CommentsNoSex and Gender InformationValueDate RecordedSex Assigned at BirthNot on fileLegal SmmWriogz51/06/2015 12:08 PM EDTGender IdentityNot on fileSexual OrientationNot on file Last Filed Vital Signs Vital SignReadingTime TakenCommentsBlood Xhgyjpli463/9010 3:52 PM EDT Ijyxn55638 3:52 PM IOCIlynplvydin74.8 ??C (98.2 ??F)08/08/2024 10:20 AM EDTRespiratory Ljii934808/08/2024 10:50 AM EDTOxygen Ezstrweypf66%08/08/2024 10:50 AM EDTInhaled Oxygen Concentration--Xpwkzg70.2 kg (190 lb)08/08/2024 6:45 AM EDT Nvckus644.1 cm (5' 5 )08/08/2024 6:45 AM EDTBody Mass Index31.62008/08/2024 6:45 AM EDT Plan of Treatment DateTypeDepartmentCare Team (Latest Contact Info)Nhaodukzypf29/24/2025 9:00 AM ESTProcedure visit [facility] - [facility] [address] [place] [address] 03/20/2025 7:30 AM ESTHospital Encounter [facility] - Surgery [address] [place] [address] Georgi Carreon, [place] [address] [place] [address] 03/20/2025 7:30 AM EST - 03/20/2025 9:30 AM ESTSurgery [facility] - [facility] [address] [place] [address] Georgi Carreon DPM [address] [place] [address] OSTEOTOMY METATARSAL 2nd & 5th [20463 (CPT )]NamePriorityAssociated DiagnosesDate/TimeOSTEOTOMY METATARSAL right foot metatarsal deformity, acquired toe deformity, tailor's bunion 03/20/2025 7:30 AM ESTSOFT TISSUE RECONSTRUCTION ANGLULAR TOE DEFORMITY right foot metatarsal deformity, acquired toe deformity, tailor's bunion 03/20/2025 7:30 AM ESTHealth MaintenanceDue DateLast DoneCommentsDepression Qwfeyfukb19/30/1995Adult BMI Follow Up Plan2000DTaP,Tdap and Td Vaccines (1 - Tdap)2001Influenza Lwcmktl1912/02/2024dult BMI Lxwvrvcrs44/08/2026 08/08/2024Tobacco Jgtoolgbd10Pap Smear8007/22/2024 Goals GoalPatient Goal TypeAssociated ProblemsRecent ProgressPatient-Stated?Author have better pain control Azeb Harry, ELVIS Note: Evaluation of progress towards goal: johns removal; pain management Autogenerated Goal Care PlanAutogenerated ProblemNoPotts, Gaby [employer] Devices ImplantedTypeAreaManufacturerDevice IdentifierShelf Expiration DateModel / Serial / LotStaple [id number] Str Grt Wht Jaws Ntnl Bn Rpl [id number] - Sna - [id number] Implanted:Qty: 1 on 08/08/2024 by Georgi Carreon DPM at [facility] ImplantLeft: FootPARAGON 28 INC10/15/2028 [id number] / NA / [id number] Str Grt Wht Jaws Ntnl Bn Rpl [id number] - Sna - [id number] Implanted:Qty: 1 on 08/08/2024 by Georgi Carreon DPM at [facility] ImplantLeft: FootPARAGON 28 INC05/31/2028 [id number] / NA / [id number] Bn 13mm 2mm Bite Mnstr St Ns - Sna - [id number] Implanted:Qty: 1 on 08/08/2024 [facility]: FootPARAGON 28 [id number] / NA / NAScrew Bn 10mm 2mm Hd Mn-Mnstr St Ns - [id number] Implanted:Qty: 2 on 08/08/2024 by [facility]: FootPARAGON 28 [id number] / / ExplantedTypeAreaManufacturerDevice IdentifierShelf Expiration DateModel / Serial / LotWire Fx Krsh 1.6mm 100mm 1 End Troc Tip Smth - [id number] [facility]planted:Q[facility] 4 [facility] ImplantLeft: FootPARAGON 28 [id number] / / Wire Fx Krsh 1.6mm 150mm 1 End Troc Tip Smth Rpl [id number] - [id number] Explanted:Qty: 1 on 08/08/2024 at [facility] ImplantLeft: FootPARAGON 28 [id number] / / Wire Fx Krsh .9mm 150mm 1 End Troc Pnt Smth Ns - [id number] Explanted:Qty: 2 on 08/08/2024 [facility] ImplantLeft: FootPARAGON 28 [id number] / / Guidewire Orth 1.6mm 150mm 2 Blnt Smth - [id number] Explanted:Qty: 1 [facility] ImplantLeft: FootPARAGON 28 [id number] / / Screw Bn 12mm 2mm Hd Mn-Mnstr St Ns - Sna - [id number] Explanted:Qty: 1 on 08/08/2024 by [facility]wLeft: FootPARAGON 28 [id number] / NA / NA Additional Health Concerns Active ProblemsNoted DateDiagnosed DateAutogenerated Prpdvya8102/04/2025 Insurance Advance Directives * Full Code (Latest Code Status on File) Date ActivatedDate XvgvxrelxueDauqhmfo46/24/2024 2:30 PM10 2:17 PM Care Teams Team MemberRelationshipSpecialtyStart DateEnd Date Radha Sanchez MD [address] [place] [address] PCP - Zdkilan01/11/23
--- OUTSIDE RECORDS SUMMARY | 2025-02-05 08:37 | XMS_ITS | Encounter Summary ---
Author Organization [facility] Address [address] [place] [address] Care Team Providers Care Web Feeder Name Role Phone Radha Sanchez MD Primary Care Provider [phone] Encounter Details DateTypeDepartmentCare Team (Latest Contact Info)Qoeokgqkzeq65/08/2024linisync Result Encounter [facility] External Department Unsolicited Sanjeev Lopez, DO [address] [place] [address] Social History Tobacco UseTypesPacks/DayYears UsedDateSmoking Tobacco: NeverSmokeless Tobacco: NeverAlcohol UseStandard Drinks/WeekCommentsNot Currently0 (1 standard drink = 0.6 oz pure alcohol)Alcohol: 1 or 2 drinks on typical day/monthly or less. Caffeine: 1-2 cups/day teaCommentsNoSex and Gender InformationValueDate RecordedSex Assigned at FuvysQgcdpl99/21/2023 8:59 AM EDTLegal SexFemale 06/15/2022 7:26 PM EDTGender QhntsxvePotcoy91/21/2023 8:59 AM EDTSexual XtyomqssbmsXzrsyude46/21/2023 8:59 AM EDTdocumented as of this encounter Plan of Treatment DateTypeDepartmentCare Team (Latest Contact Info)Lcyvlyrixoa12/08/2025 11:00 AM ESTOffice Visit [facility] [address] [place] [address] Georgi Carreon, NOE [address] [place] [address] 04/02/2025 10:30 AM ESTOffice Visit [facility] [address] [place] [address] Tee Carreon DPM [address], [place] [address] 04/18/2025 11:00 AM ESTOffice Visit [facility] [address] [place] [address] Georgi Carreon DPM [address], [place] [phone] 07/29/2025 1:00 PM EDTOffice Visit [facility] [address] [place] [phone] Sanjeev Lopez, DO [address] [facility] [address] [place], [place] [address] documented as of this encounter Procedures Procedure NamePriorityDate/TimeAssociated DiagnosisCommentsMM STEREOTACTIC LOC LT06/09/2023 9:01 AM EST documented in this encounter Results * MM STEREOTACTIC LOC LT (06/09/2023 9:01 AM EST)Anatomical RegionLaterality ModalityRadiographic ImagingSpecimen (Source)Anatomical Location / Laterality Collection Method / VolumeCollection TimeReceived Time06/09/2023 9:01 AM EST Narrative 06/09/2023 9:02 AM EST [facility] ?[address] ? [place] [address] ? Mammography Report ? Signed ? Patient: JULIA,CHAR D ?MR#: [id number] ?? : 1980 ?Acct:[id number] ?? Age/Sex: 42 / F ?ADM Date: 02/20/24 ?? Loc: MAMMO ? Attending Dr: Sanjeev Garcia.O. ? Ordering Physician: Sanjeev Lopez D.O. ?Results: ? Date of Service: 05/23/23 ?Follow Up: ? Procedure(s): MM stereotactic loc LT ?? Accession Number(s): [id number] ? cc: Radha Sanchez M.D.; Sanjeev Lopez D.O. ? Patient Name: ? CHAR DUMONT ? MR#: [id number] ? : 1980 ? Exam Date: 05/23/2023 [...] 0902 ? DD/ 0901 ? TD/TT: ? Warehouse Distribution Specialist: Procedure Note Radiology, Radiologist, - 06/09/2023 [place] [address] Mammography Report Signed Patient: CHAR DUMONT DMR#: [id number] : 1980Acct:[id number] Age/Sex: 42 / FADM Date: 05/23/23 Loc: MAMMO Attending Dr: Sanjeev Lopez D.O. Ordering Physician: Sanjeev Lopez D.O.Results: Date of Service: 05/23/23Follow Up: Procedure(s): MM stereotactic loc LT Accession Number(s): [id number] cc: Radha Sanchez M.D.; Sanjeev Lopez D.O. Patient Name: CHAR DUMONT MR#: [id number] : 1980 Exam Date: 05/23/2023 Ordering Doctor: [...] Peterson M.D. Signed By:06/09/23901 DD/ 0 TD/TT: Warehouse Distribution Specialist: Authorizing ProviderResult TypeResult StatusCorey Jessica DOIMG XR PROCEDURESFinal Result documented in this encounter Visit Diagnoses Not on filedocumented in this encounter Care Teams Team MemberRelationshipSpecialtyStart DateEnd Date Radha Sanchez MD [facility] [place] [address] PCP - GeneralFamily Medicine12/12/22documented as of this encounter
--- OUTSIDE RECORDS SUMMARY | 2025-02-05 08:38 | XMS_ITS | Encounter Summary ---
Author Organization [facility] Address [address] [place] [address] Care Team Providers Care Machine Folder Name Role Phone Radha Sanchez MD Primary Care Provider [phone] Encounter Details DateTypeDepartmentCare Team (Latest Contact Info)Mhqvagspraa18/27/2025Travel Social History Tobacco UseTypesPacks/DayYears UsedDateSmoking Tobacco: NeverSmokeless Tobacco: NeverAlcohol UseStandard Drinks/WeekCommentsNot Currently0 (1 standard drink = 0.6 oz pure alcohol)Alcohol: 1 or 2 drinks on typical day/monthly or less. Caffeine: 1-2 cups/day teaCommentsNoSex and Gender InformationValueDate RecordedSex Assigned at AnvjeDkdpgv96/21/2023 8:59 AM EDTLegal SexFemale 06/15/2022 7:26 PM EDTGender CmlquiwrNsiplo55/21/2023 8:59 AM EDTSexual RbmsmdfowywHahiryrb10/21/2023 8:59 AM EDTdocumented as of this encounter Plan of Treatment DateTypeDemercy hospital northwest arkansasCare Team (Latest Contact Info)Ggoesvzjoct37/08/2025 11:00 AM ESTOffice Visit [facility] [address] [place] [address] Georgi Carreon DPM [address] [place] [phone] 04/02/2025 10:30 AM ESTOffice Visit [facility] [address] [place] [address] Tee Carreon, DPM [address], [place] [id number] 04/18/2025 11:00 AM ESTOffice Visit [facility] [address] [place] [address] Georgi Carreon, DPM [address], [place] [phone] 07/29/2025 1:00 PM EDTOffice Visit [facility] [address] [place] [address] Sanjeev Lopez DO [address] [place], [place] [phone] documented as of this encounter Visit Diagnoses Not on filedocumented in this encounter Care Teams Team MemberRelationshipSpecialtyStart DateEnd Date Radha Sanchez MD [address] [place] [phone] PCP - GeneralFamily Medicine12/12/22documented as of this encounter
--- OUTSIDE RECORDS SUMMARY | 2025-02-05 08:38 | XMS_ITS | Encounter Summary ---
Author Organization [facility] Address [address] [place] [address] Care Team Providers Care Railway Patrol Officer Name Role Phone Radha Sanchez MD Primary Care Provider [phone] Encounter Details DateTypeDepartmentCare Team (Latest Contact Info)Ombohdpoffl79/29/2025Travel Social History Tobacco UseTypesPacks/DayYears UsedDateSmoking Tobacco: NeverSmokeless Tobacco: NeverAlcohol UseStandard Drinks/WeekCommentsNot Currently0 (1 standard drink = 0.6 oz pure alcohol)Alcohol: 1 or 2 drinks on typical day/monthly or less. Caffeine: 1-2 cups/day teaCommentsNoSex and Gender InformationValueDate RecordedSex Assigned at YynoxAcfmvd73/21/2023 8:59 AM EDTLegal SexFemale 06/15/2022 7:26 PM EDTGender ZkahdfttAazrgy16/21/2023 8:59 AM EDTSexual IwnymatxzjpJhzamqgq30/21/2023 8:59 AM EDTdocumented as of this encounter Plan of Treatment DateTypeDest. [facility]ernards medical centerCare Team (Latest Contact Info)Zicbllrlnvh87/08/2025 11:00 AM ESTOffice Visit [facility] [address] [place] [address] Georgi Carreon DPM [address] [place] [phone] 04/02/2025 10:30 AM ESTOffice Visit [facility] [address] [place] [address] Tee Carreon, DPM [address], [place] [phone] 04/18/2025 11:00 AM ESTOffice Visit [facility] [address] [place] [address] Georgi Carreon, DPM [address], [place] [address] 07/29/2025 1:00 PM EDTOffice Visit [facility] [address] [facility] [place] [place] [address] Sanjeev Lopez DO [address] [place], [place] [phone] documented as of this encounter Visit Diagnoses Not on filedocumented in this encounter Care Teams Team MemberRelationshipSpecialtyStart DateEnd Date Radha Sanchez MD [address] [facility] [place] [place] [address] PCP - GeneralFamily Medicine12/12/22documented as of this encounter
--- OUTSIDE RECORDS SUMMARY | 2025-02-05 08:38 | XMS_ITS | Encounter Summary ---
Author Organization [facility] Address [address] [place] [address] Care Team Providers Care Anti Air Warfare Operations Officer Name Role Phone Radha Sanchez MD Primary Care Provider [phone] Encounter Details DateTypeDepartmentCare Team (Latest Contact Info)Dvseibueuot05/07/2024linisync Result Encounter [facility] External Department Unsolicited Sanjeev Lopez, DO [address] [place] [address] Social History Tobacco UseTypesPacks/DayYears UsedDateSmoking Tobacco: NeverSmokeless Tobacco: NeverAlcohol UseStandard Drinks/WeekCommentsNot Currently0 (1 standard drink = 0.6 oz pure alcohol)Alcohol: 1 or 2 drinks on typical day/monthly or less. Caffeine: 1-2 cups/day teaCommentsNoSex and Gender InformationValueDate RecordedSex Assigned at MtunlJpldub25/21/2023 8:59 AM EDTLegal SexFemale 06/15/2022 7:26 PM EDTGender MfuomngiAijkvl88/21/2023 8:59 AM EDTSexual WcfzvkqnhcsCivpuqeb13/21/2023 8:59 AM EDTdocumented as of this encounter Plan of Treatment DateTypeDepartmentCare Team (Latest Contact Info)Wxhwfebjpdu83/08/2025 11:00 AM ESTOffice Visit [facility] [address] [place] [phone] Georgi Carreon, NOE [address] [place] [address] 04/02/2025 10:30 AM ESTOffice Visit [facility] [address] [place] [address] Tee Carreon, DPM [address] [place] [address] 04/18/2025 11:00 AM ESTOffice Visit [facility] [address] [place] [phone] Georgi Carreon, DPM [address], [place] [phone] 07/29/2025 1:00 PM EDTOffice Visit [facility] [address] [place] [address] Sanjeev Lopez DO [address] [place] [address] documented as of this encounter Procedures Procedure NamePriorityDate/TimeAssociated DiagnosisCommentsMM DIAGNOSTIC MAMMO UNILAT LT05/10/2023 8:42 AM EST TB[facility] VITAMIN D 25 BYDgzrfmu76/07/2024 7:48 AM EST TB[facility] GLUCOSE VFUOHYsmiaie79/07/2024 7:48 AM EST MLR HEMOGLOBIN E4AShlyqxn87/07/2024 7:48 AM EST [facility] IDZPWNLDHqfgruo38/07/2024 7:48 AM EST ALL THYROXINE (T4) OGPDVondzgv02/07/2024 7:48 AM EST ALL THYROXINE (T4)Hreslrc9505/10/2023 7:48 AM EST ALL THYROID STIM MXEHQEGUknsiuj96/07/2024 7:48 AM EST ALL T3 LSBIFpdtmkn62/07/2024 7:48 AM EST documented in this encounter Results * MM DIAGNOSTIC MAMMO UNILAT LT (05/10/2023 8:42 AM EST)Anatomical Region LateralityModalityOtherSpecimen (Source)Anatomical Location / Laterality Collection Method / VolumeCollection TimeReceived Time05/10/2023 8:42 AM EST Narrative 05/10/2023 8:43 AM EST [facility] ?[address] ? [place] [address] ? Mammography Report ? Signed ? Patient: MARISSA,CHAR D ?MR#: [id number] ?? : 1980 ?Acct:[id number] ?? Age/Sex: 42 / F ?ADM Date: 05/10/23 ?? Loc: MAMMO ? Attending Dr: Sanjeev Lopez D.O. ? Ordering Physician: Sanjeev Lopez D.O. ?Results: ? Date of Service: 05/10/23 ?Follow Up: ? Procedure(s): MM diagnostic mammo unilat LT ?? Accession Number(s): [id number] ? cc: Radha Sanchez M.D.; Sanjeev Lopez D.O. ? Patient Name: ? CHAR AMRISSA ? MR#: [id number] ? : 1980 ? Exam Date: 05/10/2023 [...] at age 67. ? LOCATION: ? [facility] ? BREAST COMPOSITION: ? Scattered areas [...] 0843 ? DD/ 0842 ? TD/TT: ? Wool Hanker: Procedure Note Radiology, Radiologist, - 05/10/[address] [address] Mammography Report Signed Patient: CHAR DUMONT DMR#: [id number] : 1980Acct:[id number] Age/Sex: 42 / FADM Date: 05/10/23 Loc: MAMMO Attending Dr: Sanjeev Lopez D.O. Ordering Physician: Sanjeev Lopez D.O.Results: Date of Service: 05/10/23Follow Up: Procedure(s): MM diagnostic mammo unilat LT Accession Number(s): [id number] cc: Radha Snachez M.D.; Sanjeev Lopez D.O. Patient Name: CHAR DUMONT MR#: [id number] : 1980 Exam Date: 05/10/2023 Ordering Doctor: [...] stomach cancer at age 67. LOCATION: [facility] BREAST COMPOSITION: Scattered areas fibroglandular density. [...] Mj Silva M.D. Signed By:05/10/2343 DD/ TD/TT: Wool Hanker: Authorizing ProviderResult TypeResult StatusCorey Jessicarocio BRENNERLINISYNC IMAGINGFinal Result * ALL THYROXINE (T4) FREE (05/10/2023 7:48 AM EST)ComponentValueRef RangeTest MethodAnalysis TimePerformed AtPathologist SignatureFREE T41.290.76 - 1.46 ng/dLTBHSpecimen (Source)Anatomical Location / LateralityCollection Method / VolumeCollection TimeReceived Time05/10/2023 7:48 AM EST05/10/2023 7:51 AM EST Narrative CLIN[facility]NC - 05/10/2023 10:22 AM EST Authorizing ProviderResult TypeResult StatusCorey Jessica DOCLINISYNCFinal Result Performing OrganizationAddressCity/State/ZIP CodePhone Number [facility] * [facility] VITAMIN D 25 [place] [...] Jessica DOCLINISYNCFinal Result Performing OrganizationAddressCity/State/ZIP CodePhone Number [facility] * [facility] FERRITIN (05/10/2023 7:48 AM EST)ComponentValueRef RangeTest Method Analysis TimePerformed AtPathologist MrgsrynvaYWVENTOP04.08.0 - 252.0 ng/mLTBH Specimen (Source)Anatomical Location / LateralityCollection Method / Volume Collection TimeReceived Time05/10/2023 7:48 AM EST05/10/2023 7:51 AM EST Narrative CLIN[facility]NC - 05/10/2023 10:22 AM EST Authorizing ProviderResult TypeResult StatusCorey Jessica DOCLINISYNCFinal Result Performing OrganizationAddressCity/State/ZIP CodePhone Number [facility] * MLR HEMOGLOBIN A1C (05/10/2023 7:48 AM EST)ComponentValueRef RangeTest Method Analysis TimePerformed AtPathologist SignatureGLYCOHEMOGLOBIN A1C4.94.5 - 6.2 %TBHComment: ADA RECOMMENDED LIMIT 4.0 - 6.0 ADA THERAPEUTIC TARGET < 7.0 ACTION SUGGESTED > 7.0 ESTIMATED AVERAGE RVNTYTV34ls/dLTBHSpecimen (Source)Anatomical Location / LateralityCollection Method / VolumeCollection TimeReceived Time05/10/2023 7:48 AM EST05/10/2023 7:51 AM EST Narrative CLINISYNC - 05/10/2023 9:33 AM EST Authorizing ProviderResult TypeResult StatusCorey Jessica DOCLINISYNCFinal Result Performing OrganizationAddressty/State/[facility]Phone Number [facility] * ALL THYROID STIM HORMONE (05/10/2023 7:48 AM EST)ComponentValueRef RangeTest MethodAnalysis TimePerformed AtPathologist SignatureTHYROID STIMULATING HORMONE1.7350.358 - 3.740 uIU/mLTBHSpecimen (Source)Anatomical Location / LateralityCollection Method / VolumeCollection TimeReceived Time05/10/2023 7:48 AM EST05/10/2023 7:51 AM EST Narrative CLINISYNC - 05/10/2023 9:02 AM EST Authorizing ProviderResult TypeResult StatusCorey Jessica DOCLINISYNCFinal Result Performing OrganizationAddPunxs[facility] CodePhone [facility] * ALL THYROXINE (T4) (05/10/2023 7:48 AM EST)ComponentValueRef RangeTest Method Analysis TimePerformed AtPathologist SignatureT4 THYROXINE9.004.80 - 13.90 ug/dLTBHSpecimen (Source)Anatomical Location / LateralityCollection Method / VolumeCollection TimeReceived Time05/10/2023 7:48 AM EST05/10/2023 7:51 AM EST Narrative CLINISYNC - 05/10/2023 9:02 AM EST Authorizing ProviderResult TypeResult StatusCorey Jessica DOCLINISYNCFinal Result Performing OrganizationAddGeising[facility] Medical Centerty/State/ZIP CodePhone Number CLINISYNC [facility] * ALL T3 [...] AM EST)ComponentValueRef RangeTest Method Analysis TimePerformed AtPathologist MajcekzmxEBAEXHM8896 - 106 mg/dLTBH Specimen (Source)Anatomical Location / LateralityCollection Method / Volume Collection TimeReceived Time05/10/2023 7:48 AM EST05/10/2023 7:51 AM EST Narrative CLINISYNC - 05/10/2023 9:02 AM EST Authorizing ProviderResult TypeResult StatusCorey Jessica DOCLINISYNCFinal Result Performing OrganizationAddressCity/State/ZIP CodePhone Number [facility] documented in this encounter Visit Diagnoses Not on filedocumented in this encounter Care Teams Team MemberRelationshipSpecialtyStart DateEnd Date Radha Sanchez MD [address] [place] [phone] PCP - GeneralFamily Medicine12/12/22documented as of this encounter
--- OUTSIDE RECORDS SUMMARY | 2025-02-05 08:38 | XMS_ITS | Encounter Summary ---
Author Organization [facility] Address [address] [place] [address] Care Team Providers Care Qa Architect Name Role Phone Radha Sanchez MD Primary Care Provider [phone] Encounter Details DateTypeDepartmentCare Team (Latest Contact Info)Vsaiikdviyb94/22/2025Travel Social History Tobacco UseTypesPacks/DayYears UsedDateSmoking Tobacco: NeverSmokeless Tobacco: NeverAlcohol UseStandard Drinks/WeekCommentsNot Currently0 (1 standard drink = 0.6 oz pure alcohol)Alcohol: 1 or 2 drinks on typical day/monthly or less. Caffeine: 1-2 cups/day teaCommentsNoSex and Gender InformationValueDate RecordedSex Assigned at HlfeiBbdqcc01/21/2023 8:59 AM EDTLegal SexFemale 06/15/2022 7:26 PM EDTGender GqpfgqyfXkqdac64/21/2023 8:59 AM EDTSexual CyuxgdfxpoxGujxaqtm54/21/2023 8:59 AM EDTdocumented as of this encounter Plan of Treatment DateTypeDesiloam springs regional hospitalCare Team (Latest Contact Info)Hrvjotqcenj56/08/2025 11:00 AM ESTOffice Visit [facility] [address] [place] [address] Georgi Carreon DPM [address] [place] [id number] 04/02/2025 10:30 AM ESTOffice Visit [facility] [address] [place] [address] Tee Carreon, DPM [address], [place] [address] 04/18/2025 11:00 AM ESTOffice Visit [facility] [address] [place] [phone] Georgi Carreon, DPM [address], [place] [address] 07/29/2025 1:00 PM EDTOffice Visit [facility] [address] [place] [address] Sanjeev Lopez DO [address] [place], [place] [address] documented as of this encounter Visit Diagnoses Not on filedocumented in this encounter Care Teams Team MemberRelationshipSpecialtyStart DateEnd Date Radha Sanchez MD [address] [place] [phone] PCP - GeneralFamily Medicine12/12/22documented as of this encounter
--- OUTSIDE RECORDS SUMMARY | 2025-02-05 08:38 | XMS_ITS | Encounter Summary ---
Author Organization [facility] Address [address] [place] [address] Care Team Providers Care Craft Manager Name Role Phone Radha Sanchez MD Primary Care Provider [phone] Encounter Details DateTypeDepartmentCare Team (Latest Contact Info)Xcqqhsfugoh51/07/2024linisync Result Encounter [facility] External Department Unsolicited Sanjeev Lopez, DO [address] [place] [address] Social History Tobacco UseTypesPacks/DayYears UsedDateSmoking Tobacco: NeverSmokeless Tobacco: NeverAlcohol UseStandard Drinks/WeekCommentsNot Currently0 (1 standard drink = 0.6 oz pure alcohol)Alcohol: 1 or 2 drinks on typical day/monthly or less. Caffeine: 1-2 cups/day teaCommentsNoSex and Gender InformationValueDate RecordedSex Assigned at LgtnmZfrwjc70/21/2023 8:59 AM EDTLegal SexFemale 06/15/2022 7:26 PM EDTGender SxttvhtbYxstrt16/21/2023 8:59 AM EDTSexual LklyvfrximwBumblfkm05/21/2023 8:59 AM EDTdocumented as of this encounter Plan of Treatment DateTypeDepartmentCare Team (Latest Contact Info)Gtsnzirawru53/08/2025 11:00 AM ESTOffice Visit [facility] [address] [place] [phone] Georgi Carreon, NOE [address] [place] [address] 04/02/2025 10:30 AM ESTOffice Visit [facility] [address] [place] [address] Tee Carreon, DPM [address], [place] [address] 04/18/2025 11:00 AM ESTOffice Visit [facility] [address] [place] [address] Georgi Carreon, DPM [address] [place], [place] [address] 07/29/2025 1:00 PM EDTOffice Visit [facility] [address] [place] [address] Sanjeev Lopez, [address] [place] [address] documented as of this encounter Procedures Procedure NamePriorityDate/TimeAssociated DiagnosisCommentsUS BREAST LT LIMITED 05/10/2023 8:42 AM EST CORTISOL, FREE DIALYSIS, OANOCyvjztx86/07/2024 7:48 AM EST [facility] QJKDJRMAhinatb39/07/2024 7:48 AM EST [facility] XVSEAKTMmlhjya14/07/2024 7:48 AM EST ALL C-YRQQDKZHbuirdc97/07/2024 7:48 AM EST documented in this encounter Results * US BREAST LT LIMITED (05/10/2023 8:42 AM EST)Anatomical RegionLaterality ModalityOtherSpecimen (Source)Anatomical Location / LateralityCollection Method / VolumeCollection TimeReceived Time05/10/2023 8:42 AM EST Narrative 05/15/2023 1:13 PM EST [facility] ?[address] ? [place] [address] ? Ultrasound Report ? Signed ? Patient: MARISSA,CHAR D ?MR#: [id number] ?? : 1980 ?Acct:[id number] ?? Age/Sex: 42 / F ?ADM Date: 05/10/23 ?? Loc: MAMMO ? Attending Dr: Sanjeev Lopez D.O. ? Ordering Physician: Sanjeev Lopez D.O. ?? Date of Service: 05/10/23 ?? Procedure(s): US breast LT limited ?? Accession Number(s): [id number] ? cc: Radha Sanchez M.D.; Sanjeev Lopez D.O. ? Patient Name: ? CHAR DUMONT ? MR#: [id number] ? : 1980 ? Exam Date: 05/10/2023 [...] at age 67. ? LOCATION: ? [facility] ? BREAST COMPOSITION: ? Scattered areas [...] ?05/15/231312 ? DD/ 0842 ? TD/TT: ? Insurance Instructor: Procedure Note Radiology, Radiologist, MD - 05/15/2023 [place] [address] Ultrasound Report Signed Patient: CHAR DUMONT DMR#: [id number] : 1980Acct:[id number] Age/Sex: 42 / FADM Date: 05/10/23 Loc: MAMMO Attending Dr: Sanjeev Lopez D.O. Ordering Physician: Sanjeev Lopez D.O. Date of Service: 05/10/23 Procedure(s): US breast LT limited Accession Number(s): [id number] cc: Radha Sanchez M.D.; Sanjeev Lopez D.O. Patient Name: CHAR DUMONT MR#: [id number] : 1980 Exam Date: 05/10/2023 Ordering Doctor: [...] stomach cancer at age 67. LOCATION: [facility] BREAST COMPOSITION: Scattered areas fibroglandular density. [...] M.D. Signed By:05/15/23 1313 DD/ 0842 TD/TT: Insurance Instructor: Authorizing ProviderResult TypeResult StatusCorey Jessica BRENNERLINISYNC IMAGINGFinal Result * ALL C-PEPTIDE (05/10/2023 7:48 AM EST)ComponentValueRef RangeTest Method Analysis TimePerformed AtPathologist SignatureC-PEPTIDE, SERUM2.81.1 - 4.4 ng/mLTBHComment: C-Peptide reference interval is for fasting patients. Performed at: ??CB - [facility] [address] ??[id number] Employee Relations Specialist: Theron Roblero PhD, Phone: ??[phone] Specimen (Source)Anatomical Location / LateralityCollection Method / Volume Collection TimeReceived Time05/10/2023 7:48 AM EST05/10/2023 7:51 AM EST Narrative CLINISYNC - 05/18/2023 5:08 PM EST Authorizing ProviderResult TypeResult StatusCorey Jessica BRENNERLINISYNCFinal Result Performing OrganizationAddressCity/State/ZIP CodePhone Number [facility] * [facility] ESTRONE (05/10/2023 7:48 AM EST)ComponentValueRef RangeTest MethodAnalysis TimePerformed AtPathologist SignatureESTRONE, FVCWN1846 - 231 pg/mLTBHComment: ?Range ?Adult (Premenopausal) ?27 - 231 ?Menstrual Cycle (1-10 days) ?19 - 149 ?Menstrual Cycle (11-20 days) ?? 32 - 176 ?Menstrual Cycle (21-30 days) ?? 37 - 200 Performed at: ?? - [facility] ??[id number] Employee Relations Specialist: Katelynn Macdonald MD, Phone: ??[phone] Specimen (Source)Anatomical Location / LateralityCollection Method / Volume Collection TimeReceived Time05/10/2023 7:48 AM EST05/10/2023 7:51 AM EST Narrative CLINISYNC - 05/18/2023 5:08 PM EST Authorizing ProviderResult TypeResult StatusCorey Jessica DOCLINISYNCFinal Result Performing OrganizationAddressCity/[facility]Phone Number [facility] * [facility] INSULIN (05/10/2023 7:48 AM EST)ComponentValueRef RangeTest MethodAnalysis TimePerformed AtPathologist SignatureINSULIN7.02.6 - 24.9 uIU/mLTBHComment: Performed at: ?? - [facility] ??[id number] Employee Relations Specialist: Theron Roblero PhD, Phone: ??[phone] Specimen (Source)Anatomical Location / LateralityCollection Method / Volume Collection TimeReceived Time05/10/2023 7:48 AM EST05/10/2023 7:51 AM EST Narrative CLINISYNC - 05/18/2023 5:08 PM EST Authorizing ProviderResult TypeResult StatusCorey Jessica DOCLINISYNCFinal Result Performing OrganizationAddressCity/[facility]allPhone Number [facility] * CORTISOL, FREE DIALYSIS, LCMS (05/10/2023 7:48 AM EST)ComponentValueRef Range Test MethodAnalysis TimePerformed AtPathologist SignatureCORTISOL, FREE DIALYSIS, LCMS0.787. ug/dLTBHComment: These tests were developed and their performance characteristics determined by [facility]. They have not been cleared or approved by the Food and Drug Administration. Reference Range: 8 AM 0.10 ??- 1.20 4 PM 0.042 - 0.872 Performed at: ??ES - [employer] [address] [place] [address] ??[id number] Employee Relations Specialist: Kal Archibald MD, Phone: ??[phone] Specimen (Source)Anatomical Location / LateralityCollection Method / Volume Collection TimeReceived Time05/10/2023 7:48 AM EST05/10/2023 7:51 AM EST Narrative CLINISYNC - 05/16/2023 6:08 PM EST Authorizing ProviderResult TypeResult StatusCorey Jessica DOLAB BLOOD ORDERABLES Final ResultPerforming OrganizationAddressCity/State/ZIP CodePhone Number CLINISYNC TB documented in this encounter Visit Diagnoses Not on filedocumented in this encounter Care Teams Team MemberRelationshipSpecialtyStart [place] [address] [place] [phone] PCP - GeneralFamily Medicine12/12/22documented as of this encounter
--- OUTSIDE RECORDS SUMMARY | 2025-02-05 08:38 | XMS_ITS | Encounter Summary ---
Author Organization [facility] Address [address] [place] [address] Care Team Providers Care Scrap Drop Engineer Name Role Phone Radha Sanchez MD Primary Care Provider [phone] Encounter Details DateTypeDepartmentCare Team (Latest Contact Info)Ysebigicomf28/07/2024linisync Result Encounter [facility] Unsolicited Sanjeev Lopez, DO [address] [place] [address] Social History Tobacco UseTypesPacks/DayYears UsedDateSmoking Tobacco: NeverSmokeless Tobacco: NeverAlcohol UseStandard Drinks/WeekCommentsNot Currently0 (1 standard drink = 0.6 oz pure alcohol)Alcohol: 1 or 2 drinks on typical day/monthly or less. Caffeine: 1-2 cups/day teaCommentsNoSex and Gender InformationValueDate RecordedSex Assigned at KgpykDepgxf74/21/2023 8:59 AM EDTLegal SexFemale 06/15/2022 7:26 PM EDTGender EebnbsulFyjoen61/21/2023 8:59 AM EDTSexual DzpbwteasphMucqjhjo73/21/2023 8:59 AM EDTdocumented as of this encounter Plan of Treatment DateTypeDepartmentCare Team (Latest Contact Info)Vlumvehagma14/08/2025 11:00 AM ESTOffice Visit [facility] [address] [place] [phone] Georgi Carreon, NOE [address] [place] [address] 04/02/2025 10:30 AM ESTOffice Visit [facility] [address] [place] [phone] Tee Carreon, DPM [address] [place], [place] [phone] 04/18/2025 11:00 AM ESTOffice Visit [facility] [address] [place] [phone] Georgi Carreon, [place] [address], [place] [phone] 07/29/2025 1:00 PM EDTOffice Visit [facility] [address] [place] [address] Sanjeev Lopez DO [address] [place] [address] documented as of this encounter Procedures Procedure NamePriorityDate/TimeAssociated DiagnosisCommentsMM DIAGNOSTIC MAMMO UNILAT LT05/10/2023 8:42 AM EST [facility] MABLILQMGZlfrfej00/07/2024 7:48 AM EST [facility] THYROID NPJDYFEXDHIlynyic05/07/2024 7:48 AM EST [facility] TESTOSTERONE FREE/TOT RZSDTZBPewpncm90/07/2024 7:48 AM EST METRO SEX BINDING HORMONE (SHBG), TESTOSTERONE, FREE AND BIOAVAILABLERoutine 05/10/2023 7:48 AM EST ALL T3 TFCSBRFXsaowky92/07/2024 7:48 AM EST ALL LTYYNTGQOUSYHksqzbp54/07/2024 7:48 AM EST ALL ESTRONE(E1)Yhvbhvi9405/10/2023 7:48 AM EST ALL DHEA FQDVTBMGgdrpjd81/07/2024 7:48 AM EST documented in this encounter Results * MM DIAGNOSTIC MAMMO UNILAT LT (05/10/2023 8:42 AM EST)Anatomical Region LateralityModalityOtherSpecimen (Source)Anatomical Location / Laterality Collection Method / VolumeCollection TimeReceived Time05/10/2023 8:42 AM EST Narrative 05/15/2023 1:13 PM EST [facility] ?[address] ? [place], [place] [address] ? Mammography Report ? Signed ? Patient: MARISSA,CHAR D ?MR#: [id number] ?? : 1980 ?Acct:[id number] ?? Age/Sex: 42 / F ?ADM Date: 05/10/23 ?? Loc: MAMMO ? Attending Dr: Sanjeev Lopez D.O. ? Ordering Physician: Sanjeev Lopez D.O. ?Results: ? Date of Service: 05/10/23 ?Follow Up: ? Procedure(s): MM diagnostic mammo unilat LT ?? Accession Number(s): [id number] ? cc: Radha Sanchez M.D.; Sanjeev Lopez D.O. ? Patient Name: ? CHAR MARISSA ? MR#: [id number] ? : 1980 ? Exam Date: 05/10/2023 [...] at age 67. ? LOCATION: ? [facility] ? BREAST COMPOSITION: ? Scattered areas [...] 1313 ? DD/ 0842 ? TD/TT: ? 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 Ordering Physician: Sanjeev Lopez D.O.Results: Date of Service: 05/10/23Follow Up: Procedure(s): MM diagnostic mammo unilat LT Accession Number(s): [id number] cc: Radha Sanchez M.D.; Sanjeev Lopez D.O. Patient Name: CHAR DUMONT MR#: [id number] : 1980 Exam Date: 05/10/2023 Ordering Doctor: [...] stomach cancer at age 67. LOCATION: [facility] BREAST COMPOSITION: Scattered areas fibroglandular [...] M.D. Signed By:05/15/23 1313 DD/ 0842 TD/TT: Lobster Fisherman: Authorizing ProviderResult TypeResult StatusCorey Jessica DOCLINISYNC IMAGINGFinal Result * [facility] TESTOSTERONE FREE/TOT EQUILIB (05/10/2023 7:48 AM EST)ComponentValueRef RangeTest MethodAnalysis TimePerformed AtPathologist VlzdqytcdRQPWGFUEEKPO100 - 60 ng/dLTBHFREE TESTOSTERONE(DIRECT)0.60.0 - 4.2 pg/mLTBHComment: Performed at: ??[facility] ??[id number] Gi Technician: Theron Roblero PhD, Phone: ??[phone] Performed at: ??[facility] ??[id number] Gi Technician: Katelynn Macdonald MD, Phone: ??[phone] Specimen (Source)Anatomical Location / LateralityCollection Method / Volume Collection TimeReceived Time05/10/2023 7:48 AM EST05/10/2023 7:51 AM EST Narrative CLIN[facility] - 06/15/2023 1:47 PM EDT Authorizing ProviderResult TypeResult StatusCorey Jessica DOCLINISYNCFinal Result Performing OrganizationAddressCity/State/[facility] CodePhone Number CLIN[facility]NC TB * [facility] THYROID ANTIBODIES (05/10/2023 7:48 AM EST)ComponentValueRef RangeTest MethodAnalysis TimePerformed AtPathologist SignatureTHYROID PEROXIDASE (TPO) AB110 - 34 IU/mLTBHTHYROGLOBULIN ANTIBODY<1.00.0 - 0.9 IU/mLTBHComment: Thyroglobulin Antibody measured by Sarah [place] Methodology Performed at: ??[facility] [address] ??[id number] Gi Technician: Theron Roblero PhD, Phone: ??[phone] Specimen (Source)Anatomical Location / LateralityCollection Method / Volume Collection TimeReceived Time05/10/2023 7:48 AM EST05/10/2023 7:51 AM EST Narrative [facility] - 06/15/2023 1:47 PM EDT Authorizing ProviderResult TypeResult StatusCorey Jessica DOCLINISYNCFinal Result Performing OrganizationAddclovis baptist hospitalCity/[facility] CodePhone Number [facility] * [facility] SEROTONIN (05/10/2023 7:48 AM EST)ComponentValueRef RangeTest Method Analysis TimePerformed AtPathologist SignatureSEROTONIN, [id number] - 207 ng/mLTBHComment: This test was developed and its performance characteristics determined by [facility]. It has not been cleared or approved by the Food and Drug Administration. Performed at: ?? - [address] ??[id number] Gi Technician: Katelynn Macdonald MD, Phone: ??[phone] Specimen (Source)Anatomical Location / LateralityCollection Method / Volume Collection TimeReceived Time05/10/2023 7:48 AM EST05/10/2023 7:51 AM EST Narrative [facility]IN[facility] - 06/15/2023 1:47 PM EDT Authorizing ProviderResult TypeResult StatusCorey Jessica DOCLINISYNCFinal Result Performing [facility]Add[facility] HospitalPhone Number [facility] * METRO SEX BINDING HORMONE (SHBG), TESTOSTERONE, FREE AND BIOAVAILABLE (05/10/2023 7:48 AM EST)ComponentValueRef RangeTest MethodAnalysis Time Performed AtPathologist SignatureSEX HORM BINDING GLOB, SERUM49.124.6 - 122.0 nmol/LTBHComment: Performed at: ??[facility] [address] ??[id number] Gi Technician: Theron Roblero PhD, Phone: ??[phone] Specimen (Source)Anatomical Location / LateralityCollection Method / Volume Collection TimeReceived Time05/10/2023 7:48 AM EST05/10/2023 7:51 AM EST Narrative CLIN[facility] - 06/15/2023 1:47 PM EDT Authorizing ProviderResult TypeResult StatusCorey Jessica DOCLINISYNCFinal Result Performing [facility]Add[facility]/ZIP CodePhone Number [facility] * ALL T3 REVERSE (05/10/2023 7:48 AM EST)ComponentValueRef RangeTest Method Analysis TimePerformed AtPathologist SignatureREVERSE T3, SERUM23.09.2 - 24.1 ng/dLTBHComment: This test was developed and its performance characteristics determined by [facility]. It has not been cleared or approved by the Food and Drug Administration. Performed at: ?? - [address] ??[id number] Gi Technician: Katelynn Macdonald MD, Phone: ??[phone] Specimen (Source)Anatomical Location / LateralityCollection Method / Volume Collection TimeReceived Time05/10/2023 7:48 AM EST05/10/2023 7:51 AM EST Narrative CLIN[facility]YNC - 06/15/2023 1:47 PM EDT Authorizing ProviderResult TypeResult StatusCorey Jessica DOCLINISYNCFinal Result Performing OrganizationAddressCity/State/ZIP CodePhone Number [facility] TB * ALL ESTRONE(E1) (05/10/2023 7:48 AM EST)ComponentValueRef RangeTest Method Analysis TimePerformed AtPathologist VurzksfaxCBSAGLWVO87.9. pg/mLTBHComment: ? Adult Female ? Range ?Follicular [...] ?? 0.1 Performed at: ??[facility] - [facility] [address] [place], [place] ??[id number] Gi Technician: Theron Roblero PhD, Phone: ??[phone] Specimen (Source)Anatomical Location / LateralityCollection Method / Volume Collection TimeReceived Time05/10/2023 7:48 AM EST05/10/2023 7:51 AM EST Narrative CLIN[facility]NC - 06/15/2023 1:47 PM EDT Authorizing ProviderResult TypeResult StatusCorey Jessica DOCLINISYNCFinal Result Performing OrganizationAddressCity/State/ZIP CodePhone Number [facility]IN[facility]NC [facility] * ALL DHEA SULFATE (05/10/2023 7:48 AM EST)ComponentValueRef RangeTest Method Analysis TimePerformed AtPathologist SignatureDHEA-ZJDCLWO055.057.3 - 279.2 ug/dLTBHSpecimen (Source)Anatomical Location / LateralityCollection Method / VolumeCollection TimeReceived Time05/10/2023 7:48 AM EST05/10/2023 7:51 AM EST Narrative [facility] - 06/15/2023 1:47 PM EDT Authorizing ProviderResult TypeResult StatusCorey Jessica DOCLINISYNCFinal Result Performing OrganizationAddressCity/State/ZIP CodePhone Number [facility]IN[facility]NC [facility] documented in this encounter Visit Diagnoses Not on filedocumented in this encounter Care Teams Team MemberRelationshipSpecialtyStart DateEnd Date Radha Sanchez MD [address] [place] [address] PCP - GeneralFamily Medicine12/12/22documented as of this encounter
--- OUTSIDE RECORDS SUMMARY | 2025-02-05 08:40 | XMS_ITS | CCD ---
Author Organization [facility] Care Team Providers Care Lining Brusher Name Role Phone Johnathon Winter MD Primary Care Provider [phone] JESSICA ., DR ROMERO Admitting Unavailable JESSICA [...] Unavailable Johnathon Winter MD Primary Care Provider [phone] MD Tee Peterson Attending Provider ROHIT LARKIN Attending Unavailable JOHNATHON WINTER Referring Unavailable JOHNATHON WINTER E Primary Care Unavailable JOHNATHON WINTER Referring Unavailable JOHNATHON WINTER Primary Care Unavailable KAL MARTINEZ Attending Unavailable ROHIT LARKIN Attending Unavailable ASMITA MONTGOMERY Referring Unavailable JOHNATHON WINTER Primary Care Unavailable DO Sanjeev Lopez Attending Provider Tee Peterson Admitting Unavailable Tee Peterson Attending Unavailable Sanjeev Lopez Attending Unavailable Sanjeev Lopez Admitting Unavailable JOHNATHON WINTER Referring Unavailable JOHNATHON WINTER Primary Care Unavailable PALVIMAL SEBASTIEN Admitting Unavailable PALAKODEMERRY, SEBASTIEN Attending Unavailable SEBASTIEN PRICE Referring Unavailable WINTER, JOHNATHON E Primary Care Unavailable FIDEL MARTINEZ Attending Unavailable WINTER, JOHNATHON E Primary Care Unavailable Johnathon Winter MD E Primary Care Provider [phone] Winter, Johnathon E Primary Care Unavailable KELI Resendez Attending Unavailable KELI Resendez Admitting Unavailable Winter, Johnathon E Primary Care Unavailable Santy Mckeon Attending Unavailable Santy Mckeon Admitting Unavailable Winter, Johnathon E Primary Care Unavailable Johnathon Winter MD Primary Care Provider Johnathon Winter MD Primary Care Provider [phone] Johnathon Winter MD Primary Care Provider [phone] Johnathon Winter MD Primary Care Provider RUTHIE PHILLIPS Attending Unavailable RUTHIE PHILLIPS Attending Unavailable Miguel SÁNCHEZ, Christiano Mcgovern Attending Unavailable Bhavin Montgomery MD Primary Care Unavailable JUDI ORTEGA Attending Unavailable [...] Primary Care Unavailable RUTHIE EDWARDS Referring Unavailable WNITER, JOHNATHON E Primary Care Unavailable RUSHER, GEORGI [...] Attending Unavailable RUSHER, GEORGI S Referring Unavailable Johnathon Winter MD Primary Care Provider Allergies Allergy ClassificationReported Allergen(s)Allergy TypeDate of OnsetReaction(s) Facility (20 sources)Topiramate; Translations: [TOPIRAMATE]Propensity to adverse qjpfeyvor48-13-3981LvxxfjhrIDBZ [facility] (8 sources)Adhesive agent; Translations: [ADHESIVE]Propensity to adverse reactions to drug (disorder)07-44-2047YafpMraOhraoz [facility] (6 sources)topiramateDrug Aezpxxz80-60-0344Lotuikzx, Other (See Comments) [facility] Work Phone: Medications Current Medications MedicationDrug Class(es)DatesSig (Normalized)Sig (Original)0.5 ML tirzepatide 20 MG/ML Auto-Injector [Mounjaro] (6 sources)Mounjaro 10 MG/0.5ML as directed Subcutaneous Activeacetaminophen 325 mg oral tablet (2 sources)Start: 76-89-1122grlo 2 tablets by mouth every six hours as needed for painacetaminophen (TYLENOL) 325 mg tablet Take 2 tablets (650 mg total) by mouth every 6 (six) hours asneeded for pain. 30 tablet 01/26/2024 Active acetaminophen 325 mg / HYDROcodone bitartrate 5 mg oral tablet (3 sources)Opioid AgonistStart: 01-26-2024 End: 69-80-4645JRSEXxnthcg-acetaminophen (NORCO) 5-325 mg per tablet Indications: Panniculitis affecting back Take1 tablet by mouth every 6 (six) hours as needed for pain for up to 7 days. Max Daily Amount: 4 tablets 20 tablet 01/26/2024 02/02/2024 ActiveStart: 10-11-2022 End: 42-89-5453PARTHwzpmnk-acetaminophen (NORCO) 5-325 MG per tablet 1 tablet Start: 08-19-2021 End: 00-22-4084USLXFqwtxdd-acetaminophen (NORCO) 5-325 MG per tablet Indications: Herniated lumbar intervertebral disc Take 1 tablet by mouth every 6 hours as needed for Pain for up to 3 days. Intended supply: 3 days. Take lowest dose possible to manage pain 12 tablet 0 08/19/2021 08/22/2021 ActiveamLODIPine 10 mg oral tablet (20 sources)Dihydropyridine Calcium Channel BlockerStart: 07-03-2024 End: 21-01-0718ojmt 1 tablet by mouth in the morningamLODIPine (Norvasc) 10 MG tablet Take 10 mg by mouth in the morning. 07/03/2024 07/18/2025 ActiveStart: 07-03-2024 End: 07-62-8350hxct 2 tablets by mouth in the morningamLODIPine (NORVASC) 5 mg tablet Take 2 tablets (10 mg total) by mouth in the morning. 07/03/2024 ActiveStart: 07-03-2024 End: 59-91-2184ybct 1 tablet by mouth in the morningamLODIPine (NORVASC) 5 mg tablet Take 1 tablet (5 mg total) by mouth in the morning. 07/03/2024 07/03/2025 Activeaspirin 325 mg oral tablet (2 sources)Platelet Aggregation Inhibitor, Nonsteroidal Anti-inflammatory Drug take 1 tablet by mouth in the morningaspirin 325 mg tablet Take 1 tablet (325 mg total) by mouth in the morning. ActiveBlood Glucose Monitoring Suppl (D-Care Glucometer) w/Device kit (20 sources)Start: 09-20-2023 End: 44-18-7519Txgkm Glucose Monitoring Suppl (D-Care Glucometer) w/Device kit Indications: Pre-diabetes 1 kit Daily Use four times daily to check FSBS. In the morning prior to breakfast & 1 hour after each meal for a total of 4times daily. 1 kit 09/20/2023 09/19/2024 Activecephalexin 500 mg oral capsule (1 source)Cephalosporin AntibacterialStart: 01-26-2024 End: 69-96-8047zqwe 1 capsule by mouth in the morning, then take 1 capsule by mouth at bedtimeCEPHalexin (KEFLEX) 500 mg capsule Take 1 capsule (500 mg total) by mouth in the morning and 1 capsule (500 mg total) before bedtime. Do all this for 6 days. 12 capsule 01/26/2024 02/01/2024 Activecholecalciferol 0.125 mg oral tablet (2 sources)Vitamin Dtake 1 tablet by mouth in the morningcholecalciferol, vitamin D3, 5,000 units tablet Take 1 tablet (5,000 Units total) by mouth in the morning. Activecyclobenzaprine hydrochloride 10 mg oral tablet (20 sources)Muscle RelaxantStart: 08-12-2024 End: 58-03-2522pdti 1 tablet by mouth three times daily as needed for muscle spasmscyclobenzaprine (Flexeril) 10 MG tablet Indications: Muscle cramps Take 1 tablet (10 mg) by mouth 3(three) times a day as needed for muscle spasms for up to 10 days 30 tablet 08/12/2024 ActiveStart: 78-50-9739tfvt 1 tablet by mouth three times dailycyclobenzaprine (FLEXERIL) 10 mg tablet Take 1 tablet (10 mg total) by mouth 3 (three) times a day.30 tablet 01/26/2024 ActiveStart: 00-72-2673rhkjmhummkzcasa (FLEXERIL) 10 mg tablet Indications: Acute left-sided low back pain with left-sidedsciatica Take 1 tablet (10 mg total) by mouth every 8 (eight) hours as needed for muscle spasms forup to 9 doses. MAY CAUSE SEDATION. NO DRIVING 9 tablet 0 04/14/2023 ActiveStart: 04-14-2023 cyclobenzaprine (Flexeril) 10 MG tablet PLEASE SEE ATTACHED FOR DETAILED DIRECTIONS 0 04/14/2023 Activetake 1 tablet by mouth three times daily as needed for muscle spasmscyclobenzaprine (FLEXERIL) 5 MG tablet Take 5 mg by mouth 3 times daily as needed for Muscle spasms0 ActivediazePAM 10 mg oral tablet (13 sources)BenzodiazepineStart: 06-29-2023 End: 56-63-2456xiwyuOWO (Valium) 10 MG tablet TAKE 1 TABLET BY MOUTH PREOP 06/29/2023 02/26/2024 Discontinueddocusate sodium 100 mg oral capsule (2 sources)Start: 42-38-2973rmbp 1 capsule by mouth in the morning, then take 1 capsule by mouth at bedtimedocusate sodium (COLACE) 100 mg capsule Take 1 capsule (100 mg total) by mouth in the morning and 1capsule (100 mg total) before bedtime. 30 capsule 01/26/2024 Activeescitalopram 10 mg oral tablet (20 sources)Serotonin Reuptake InhibitorStart: 33-86-4766folc 1 tablet by mouth in the morningescitalopram (Lexapro) 10 MG tablet Take 10 mg by mouth in the morning. 07/17/2024 Activefluconazole 100 mg oral tablet (6 sources)Azole AntifungalStart: 05-01-2023 End: 59-52-2636wdug 1 tablet by mouth in the morningfluconazole (Diflucan) 100 MG tablet Indications: Follow-up encounter involving medication , Superficial skin infection Take 1 tablet (100 mg) by mouth in the morning for 14 days. 14 tablet 0 05/01/2023 05/15/2023 Activetake 1 tablet by mouth every twenty-four hoursFluconazole 100 MG 1 tablet Orally daily for 10 days Activegelatin, empty no. 00, capsule (3 sources)Start: 67-71-5103dlhouvh, empty no. 00, capsule Compound medication for hypothryroid 04/16/2024 ActiveStart: 01-61-1430ruzipuh, empty no. 00, capsule 04/16/2024 ActivehydroCHLOROthiazide 25 mg / metoprolol tartrate 50 mg oral tablet (3 sources)Thiazide Diuretic, beta-Adrenergic BlockerStart: 05-27-2024 metoprolol-hydroCHLOROthiazide (Lopressor HCT) 50-25 MG tablet 05/27/2024 Active hydrOXYzine hydrochloride 25 mg oral tablet (2 sources)AntihistamineStart: 86-49-4070jlyk 1 tablet by mouth four times daily as needed for anxietyhydrOXYzine (ATARAX) 25 mg tablet Indications: Generalized anxiety disorder Take 1 tablet (25 mg total) by mouth 4 (four) times a day as needed for anxiety (or sleep). 120 tablet 2 10/21/2024 Activeisopropyl alcohol 0.7 ml/ml medicated pad (20 sources)Start: 99-63-6757EW ALCOHOL SWABS pads, medicated 03/28/2024 Active Start: 46-08-0517Dtmrllc Swabs (B-D SINGLE USE SWABS REGULAR) pads 12/24/2023 ActiveStart: 09-14-2023 End: 55-59-0765Oepnoah Swabs (Alcohol Prep Pad) 70 % pads Indications: Pre- diabetes Apply 1 Pad topically in the morning and 1 Pad before bedtime. Use twice daily to check FSBS.. 180 each 3 09/14/2023 12/13/2023 Active lisdexamfetamine dimesylate 40 mg oral capsule (20 sources)Central Nervous System StimulantStart: 44-15-6448necf 1 capsule by mouth once daily in the morninglisdexamfetamine (VYVANSE) 40 mg capsule Indications: Attention deficit hyperactivity disorder (ADHD), predominantly inattentive type Take 1 capsule (40 mg total) by mouth every morning. Max Daily Amount: 40 mg 30 capsule 11/04/2024 ActiveStart: 12-08-2022 End: 99-07-4853rhwx 1 capsule by mouth once dailyLisdexamfetamine 50 mg capsule Discontinued 50 MG PO Daily June 22, 2023 June 23, 2023 9:10amStart: 28-06-9510rxul 1 capsule by mouth every twenty-four hoursVyvanse 30 MG 1 capsule in the morning Orally Once a day for 30 days Nov, Activelosartan potassium 100 mg oral tablet (20 sources)Angiotensin 2 Receptor BlockerStart: 05-06-2024 End: 64-97-1145aveh 1 tablet by mouth once dailylosartan (Cozaar) 100 MG tablet Take 100 mg by mouth Daily 05/06/2024 ActiveStart: 04-11-2024 End: 50-45-5519vujx 1 tablet by mouth once dailyLosartan 50 mg tablet Discontinued 50 MG PO daily May 06, 2024 3:10pm May 06, 2024 3: 13pmmagnesium glycinate 100 mg magnesium capsule (4 sources)magnesium glycinate 100 mg magnesium capsule Take 200 mg by mouth nightly. Activemagnesium oxide 400 mg oral tablet (2 sources)take 1 tablet by mouth once dailymagnesium oxide (MAGOX) 400 mg tablet Take 1 tablet (400 mg total) by mouth nightly. ActivemethylPREDNISolone 4 mg oral tablet (5 sources)CorticosteroidStart: 71-62-4742ynzxogCHCYRSQiyxqg (MEDROL, JW,) 4 mg tablet Indications: Herniated lumbar intervertebral disc Take 1 tablet (4 mg total) by mouth See Admin Instructions. Use as directed by package instructions 21 tablet 0 05/15/2023 Kmnspf89 hr metoprolol succinate 50 mg extended release oral tablet (20 sources)beta-Adrenergic BlockerStart: 70-46-4749kzry 1 tablet by mouth every twenty-four hoursmetoprolol succinate XL (TOPROL XL) 50 mg 24 hr tablet Take 1 tablet (50 mg total) by mouth. 05/17/2024 ActiveStart: 05-17-2024 End: 94-19-3151vizk 1 tablet by mouth once dailyMetoprolol Succinate 50 mg tablet extended release 24 hr Active 50 MG PO daily June 18, 2024 8:43am MONOJECT 3CC SYRINGE 3 ML misc (20 sources)Start: 26-08-9509JSDVAIOW 3CC SYRINGE 3 ML misc 01/02/2024 Active Mounjaro 10 MG/0.5ML solution auto-injector (7 sources)Start: 01-05-2024 End: 51-39-5551ufzopy 0.5 mL by subcutaneous injection every weekMounjaro 10 MG/0.5ML solution auto-injector Indications: Pre-diabetes INJECT 0.5 MLS SUBCUTANEOUSLYONCE WEEKLY 2 mL 3 01/05/2024 07/16/2024 Discontinued (Discontinued by another clinician)Start: 55-48-2143olpune 0.5 mL by subcutaneous injection every weekMounjaro 10 MG/0.5ML solution auto-injector Indications: Pre-diabetes INJECT 0.5 MLS SUBCUTANEOUSLYONCE WEEKLY 2 mL 3 01/05/2024 Activemounjaro 10 mg/0.5ml solution pen-injector (6 sources)Mounjaro 10 MG/0.5ML as directed Subcutaneous ActiveMounjaro 12.5 MG/0.5ML solution auto-injector (20 sources)Start: 48-68-6957nrhzll 0.5 mL by subcutaneous injection every week Mounjaro 12.5 MG/0.5ML solution auto-injector Indications: Insulin resistance , Weight gain inject 0.5 milliliters UNDER THE SKIN ONCE WEEKLY 2 mL 3 12/27/2024 ActiveStart: 83-41-2722zccmof 0.5 mL by subcutaneous injection every week Mounjaro 12.5 MG/0.5ML solution auto-injector Indications: Insulin resistance , Weight gain inject 0.5 milliliters UNDER THE SKIN ONCE WEEKLY 2 mL 3 10/02/2024 ActiveStart: 25-57-6482ibrmos 0.5 mL by subcutaneous injection every week Mounjaro 12.5 MG/0.5ML solution auto-injector Indications: Insulin resistance , Weight gain inject 0.5 milliliters UNDER THE SKIN ONCE WEEKLY 2 mL 3 07/05/2024 ActiveMOUNJARO 7.5 mg/0.5 mL pen injector (10 sources)Start: 84-10-1372mhxuyv 7.5 mg by subcutaneous injection every week MOUNJARO 7.5 mg/0.5 mL pen injector Inject 7.5 mg under the skin once a week. 02/27/2023 ActiveStart: 64-51-1709tvxsrb 7.5 mg by subcutaneous injection every weekMOUNJARO 7.5 mg/0.5 mL pen injector Inject 7.5 mg under the skin once a week. 0 02/27/2023 Tzofdbgcgjaoujpvkd-ogf-deub-FA-vit K 18 mg iron-400 mcg-25 mcg tablet (2 sources)ikyeryvefidr-cxu-hsfv-FA-vit K 18 mg iron-400 mcg-25 mcg tablet Take by mouth. Activenystatin 100 unt/mg topical powder (20 sources)Polyene AntifungalStart: 10-25-2024 End: 02-09-9976mfysqofl (Mycostatin) 699346 UNIT/GM powder Indications: Skin irritation Apply topically 3 (three) times a day as needed for rash 30 g 1 10/25/2024 11/24/2024 ActiveStart: 05-01-2023 End: 16-55-5234pdsivrgi (Mycostatin) cream Indications: Superficial skin infection Apply topically 2 (two) times aday Dispense cream that does NOT have perfumes added. 30 g 3 09/21/2023 09/20/2024 ActiveStart: 06-08-4544mlxazhri (MYCOSTATIN) powder Apply 1 Application topically in the morning and 1 Application before bedtime. 04/14/2023 ActiveStart: 24-27-6351wrrjvgvv (Mycostatin) 610828 UNIT/GM powder Indications: Skin irritation APPLY TO AFFECTED AREA TOPICALLY EVERY DAY 30 g 1 04/14/2023 Activeondansetron 4 mg disintegrating oral tablet (20 sources)Serotonin-3 Receptor AntagonistStart: 97-38-3611meegpeyfigk ODT (Zofran-ODT) 4 MG disintegrating tablet Indications: Nausea Dissolve one tablet on tongue EVERY 6 HOURS NEEDED FOR NAUSEA AND VOMITING 30 tablet 3 11/20/2024 ActiveStart: 79-87-2831fpbsgbkcnbu ODT (Zofran-ODT) 4 MG disintegrating tablet Indications: Nausea DISSOLVE ONE TABLET UNDER THE TONGUE EVERY 6 HOURS NEEDED FOR NAUSEA AND VOMITING 30 tablet 2 06/27/2024 ActiveStart: 03-08-9615rtgw 1 tablet by mouth every eight hours as needed for nausea and vomitingondansetron ODT (ZOFRAN ODT) 4 mg disintegrating tablet Dissolve 1 tablet (4 mg total) on tongue every 8 (eight) hours as needed for nausea or vomiting. 30 tablet 01/26/2024 ActiveStart: 04-11-2023 End: 94-66-4815lyvd 1 tablet by mouth every six hoursondansetron ODT (ZOFRAN ODT) 4 mg disintegrating tablet Dissolve 1 tablet (4 mg total) on tongue every 6 (six) hours. 0 04/11/2023 05/11/2023 ActiveStart: 14-03-4422nbim 1 tablet by mouth three times daily as needed for nauseaondansetron (ZOFRAN-ODT) 4 MG disintegrating tablet Take 1 tablet by mouth 3 times daily as needed for Nausea or Vomiting 21 tablet 0 01/03/2022 ActiveStart: 01-03-2022 End: 96-43-2638gdrhvasvxcg (ZOFRAN) injection 4 mgpolysaccharide iron complex 391 mg oral capsule (2 sources)Start: 01-03-2024 End: 71-43-9464qrbc 1 capsule by mouth once dailyiron polysaccharides (ProFe) 391.3 (180 Fe) MG capsule Indications: Low ferritin level Take 1 capsule (391.3 mg) by mouth Daily 30 capsule 6 01/03/2024 02/02/2024 Activeprasterone, DHEA, (DHEA ORAL) (1 source)take 200 mg by mouth in the morningprasterone, DHEA, (DHEA ORAL) Take 200 mg by mouth in the morning. ActivepredniSONE 10 mg oral tablet (1 source)Start: 08-19-2021 End: 90-09-9608jmwh 4 tablets by mouth once dailypredniSONE (DELTASONE) 10 MG tablet Take 4 tablets by mouth once daily for 5 days 20 tablet 0 08/19/2021 08/29/2021 ActivePrenatal Wtp-Jfh-SM-Fish Oil ([facility] GUMMY) 0.4-113.5 MG CHEW (2 sources) Jfy-Ngp-EJ-Fish Oil ([facility] GUMMY) 0.4-113.5 MG CHEW Take 2 Units by mouth daily 0 Active5 ml sodium chloride 9 mg/ml injection (2 sources)Start: 02-83-6905dhbsqa chloride flush 0.9 % injection 10 mLStart: 01-03-2022 End: .9 % sodium chloride bolusTirzepatide (5 sources)Start: 87-27-1529Xihbwsseepk 10 mg/0.5 mL pen injector Active 12.5 MG SUBCUT As Directed May 17, 2024 12:13pmFreeTextSig: as directed Subcutaneous; Note: Source Status: Taking; Provider: jessica Boggsart: 96-62-0194Ujhqeywjymb 10 mg/0.5 mL pen injector Active 12.5 MG SUBCUT As Directed May 17, 2024 11:13amFreeTextSig: as directed Subcutaneous; Note: Source Status: Taking; Provider: jessica Boggsart: 04-11-2024 End: 85-85-1283Bebgtlhnohp 10 mg/0.5 mL pen injector Discontinued MG SUBCUT As Directed April 11, 2024 1:00am May 17, 2024 12:13pm FreeTextSig: as directed Subcutaneous; Note: Source Status: Taking; Provider: jessica Boggsart: 04-11-2024 End: 66-55-8208Cfueuydzgec 10 mg/0.5 mL pen injector Discontinued MG SUBCUT As Directed April 11, 2024 12:00am May 17, 2024 11:13am FreeTextSig: as directed Subcutaneous; Note: Source Status: Taking; Provider: jessica Boggsart: 80-42-6460Gaptgdbpjqf 10 mg/0.5 mL pen injector Active MG SUBCUT As Directed April 11, 2024 12:00am FreeTextSig: as directed Subcutaneous; Note: Source Status: Taking; Provider: jessica adamesyTirzepatide (Mounjaro) 10 MG/0.5ML solution pen-injector (11 sources)Start: 53-75-4462ygxocu 0.5 mL by subcutaneous injection every week Tirzepatide (Mounjaro) 10 MG/0.5ML solution pen-injector Indications: Pre- diabetes Inject 0.5 mL under the skin 1 (one) time per week 2 mL 3 09/14/2023 Activetirzepatide (MOUNJARO) 2.5 mg/0.5 mL pen injector (3 sources)tirzepatide (MOUNJARO) 2.5 mg/0.5 mL pen injector Inject 2.5 mg under the skin every 7 days. Sundays ActiveTirzepatide (Mounjaro) 7.5 MG/0.5ML solution pen-injector (2 sources)Start: 67-67-4102qpjuoz 0.5 mL by subcutaneous injection every week Tirzepatide (Mounjaro) 7.5 MG/0.5ML solution pen-injector Indications: Insulin resistance INJECT 0.5 ML UNDER THE SKIN 1 (ONE) TIME PER WEEK FOR 28 DAYS. 2.5 mL 1 02/27/2023 ActivetiZANidine 2 mg oral tablet (1 source)Central alpha-2 Adrenergic AgonistStart: 23-29-4179ksvs 1 tablet by mouth once daily as neededtiZANidine (ZANAFLEX) 2 MG tablet Take 2 tablets by mouth nightly as needed (muscle spasms) 10 tablet 0 02/16/2022 ActiveViloxazine (10 sources)Start: 70-65-5691gjdl 2 capsules by mouth every twenty-four hours in the morningviloxazine (QELBREE) 200 mg capsule,extended release 24hr Indications: ADHD (attention deficit hyperactivity disorder), inattentive type Take two 200 mg capsules (400 mg total) in the morning by mouth. 63 capsule 11/08/2024 ActiveStart: 51-60-2206hefx 2 capsules by mouth every twenty-four hours in the morningviloxazine (QELBREE) 200 mg capsule,extended release 24hr Indications: Attention deficit hyperactivity disorder (ADHD), predominantly inattentive type Take 400 mg by mouth in the morning. 60 capsule 5 11/06/2024 ActiveStart: 62-31-8898isaa 1 capsule by mouth every twenty-four hours in the morningviloxazine (QELBREE) 200 mg capsule,extended release 24hr Indications: Attention deficit hyperactivity disorder (ADHD), predominantly inattentive type Take 200 mg by mouth in the morning. 90 capsule 1 08/01/2024 ActiveStart: 89-09-7329fuom 1 capsule by mouth once dailyViloxazine (Qelbree) 200 mg capsule,extended release 24hr Active 200 MG PO Daily July 29, 2024 12:00am Start: 07-17-2024 End: 36-71-9414yowh 1 capsule by mouth every twenty-four hours in the morning viloxazine (QELBREE) 200 mg capsule,extended release 24hr Indications: Attention deficit hyperactivity disorder (ADHD), predominantly inattentive type Take 200 mg by mouth in the morning. 30 capsule 07/17/2024 07/31/2024 Discontinued (Reorder)Start: 04-11-2024 End: 88-03-9485hbuy 1 capsule by mouth once daily at bedtimeViloxazine (Qelbree) 200 mg capsule,extended release 24hr Discontinued 200 MG PO Daily at bedtime [facility] 2024 1:00am May 17, 2024 12:13pmStart: 04-11-2024 End: 84-07-1920yunj 1 capsule by mouth once daily at bedtimeViloxazine (Qelbree) 200 mg capsule,extended release 24hr Discontinued 200 MG PO Daily at bedtime [facility] 2024 12:00am May 17, 2024 11:13amStart: 23-98-8257aarq 1 capsule by mouth every twenty-four hours in the morningviloxazine (QELBREE) 200 mg capsule,extended release 24hr Indications: Attention deficit hyperactivity disorder (ADHD), predominantly inattentive type Take 200 mg by mouth in the morning. 30 capsule 1 01/03/2024 ActiveViloxazine HCl ER (Qelbree) 200 MG capsule sustained-release 24 hr (20 sources)Start: 56-58-4227koau 1 capsule by mouth in the morning, then take 1 capsule by mouth every twenty-four hoursViloxazine HCl ER (Qelbree) 200 MG capsule sustained-release 24 hr Take 200 mg by mouth in the morning. 07/17/2024 Active End: 94-16-9497lakq 1 capsule by mouth at bedtime, then take 1 capsule by mouth every twenty-four hoursViloxazine HCl ER (Qelbree) 200 MG capsule sustained- release 24 hr Take 200 mg by mouth at bedtime 07/16/2024 Discontinued (Discontinued by another clinician)take 1 capsule by mouth at bedtime, then take 1 capsule by mouth every twenty-four hoursViloxazine HCl ER (Qelbree) 200 MG capsule sustained-release 24 hr Take 200 mg by mouth at bedtime Active Completed/Discontinued Medications MedicationDrug Class(es)DatesSig (Normalized)Sig (Original)amphetamine aspartate 5 mg / amphetamine sulfate 5 mg / dextroamphetamine saccharate 5 mg / dextroam phetamine sulfate 5 mg oral tablet (20 sources)Central Nervous System StimulantStart: 11-22-2023 End: 86-89-6555wyrc 1 capsule by mouth once daily in the morning, then take 1 capsule by mouth every twenty-four hoursDextroamphetamine-Amphetamine (Adderall Xr) 30 mg capsule,extended release 24hr Discontinued 30 MG PO Every morning April 11, 2024 1:00am July 29, 2024 11:23amStart: 09-18-2023 End: 50-88-2423aqpv 1 tablet by mouth twice dailyDextroamphetamine-Amphetamine 30 mg tablet Discontinued 30 MG PO Twice daily 60 30 October 25, 2023 April 11, 2024 11:03amStart: 06-21-2023 End: 47-26-0933rfax 1 tablet by mouth twice dailyDextroamphetamine-Amphetamine 30 mg tablet Discontinued 30 MG PO Twice daily June 21, 2023 12:00am June 21, 2023 3:09pmStart: 47-70-8569nfhj 1 tablet by mouth every twelve hours Adderall 30 MG 1 tablet Orally Twice a day for 30 days Apr, ActiveStart: 01-02-2023 End: 94-66-5457rufw 1 tablet by mouth once dailyDextroamphetamine-Amphetamine (Adderall) 20 mg tablet Discontinued 20 MG PO Daily April 1151:00am May 17, 2024 12:12pmibuprofen 800 mg oral tablet (9 sources)Nonsteroidal Anti-inflammatory DrugStart: 04-25-2022 End: 28-71-2401vhin 1 tablet by mouth three times dailyibuprofen (MOTRIN) 800 mg tablet Indications: Acute exacerbation of chronic low back pain , DDD (deg enerative disc disease), lumbar TAKE 1 TABLET BY MOUTH THREE TIMES A DAY 90 tablet 04/25/2022 01/18/2024 Discontinued (Therapy completed)iopamidol (ISOVUE- 370) 76 % injection 75 mL (1 source)Start: 01-03-2022 End: 60-69-4900ixmvjynfq (ISOVUE-370) 76 % injection 75 mL1 ml ketorolac tromethamine 30 mg/ml cartridge (1 source)Nonsteroidal Anti-inflammatory Drug, Cyclooxygenase InhibitorStart: 10-11-2022 End: 92-83-1771dauzcfwxq (TORADOL) injection 30 mgMONOJECT LUER-LOCK TIP 3 mL syringe (1 source)Start: 05-09-2024 End: 80-96-3994ZUGGMMCR LUER-LOCK TIP 3 mL syringe 05/09/2024 07/31/2024 Discontinued (Error)1 ml morphine sulfate 4 mg/ml cartridge (1 source)Opioid AgonistStart: 08-19-2021 End: 24-93-7343mobpiqmj (PF) injection 10 mgStart: 08-19-2021 End: 40-85-0074sfjwvjjk (PF) injection 10 mg Problems Active Problems Problem ClassificationProblemDateDocumented DateEpisodic/ChronicAcquired foot deformities (20 sources)Acquired left hallux valgus; Translations: [Hallux valgus (acquired), left foot]Onset: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 History Problem Relation Age of Onset Heart murmur Mother No Known Problems Father Family Status - Relation Status Age at Mother Alive Father Alive Level of Service:53485 CO OFFICE/OP CONSLTJ NEW/EST PT MOD MDM 40 MINUTESNoal [facility]CT Head or Brain w/o Contraston 14-13-4569IR Head or Brain w/o ContrastEXAMINATION: CT Head or Brain w/o Contrast HISTORY: [...] M Kim MD 06/28/24 11:24 a Technologist: MEGA REESEOhio State East HospitalExtra Blueon 03-72-2396Kfib Collected YesInvalid Interpretation [facility] HospitalComment on above:Performed By: #### [id number], [id number], [id number], [id number] ####[facility] (DEFAULT)[address], [place] [address]Bvztactyrei in LDL Calc [Mass/Vol]on 10-82-6296Xwmagdtnptf in LDL [Mass/Vol]Cholesterol in LDL [Mass/volume] in Serum or Plasma by calculationAccess Hospital [place] Comment on above:<100 mg/dl TLEUYZI496-739 mg/dl NEAR OR ABOVE CTPHWMY677-672 mg/dl BORDERLINE HIWE299-066 mg/dl HIGH>190 mg/dl VERY HIGHCholesterol in VLDL Calc [Mass/Vol]on 82-02-3833Fuqnnkwrobr in VLDL [Mass/Vol]Cholesterol in VLDL [Mass/volume] in Serum or Plasma by calculationAccess Hospital [place] Laboratory - Chemistry and Chemistry - challengeon 03-19-9364Gphczezjiud [Mass/Vol]174 mg/dL<=200Access Hospital DaytonCholesterol in HDL [Mass/Vol]65 mg/lXGmfa64-26FjywnlvrdAccess Hospital DaytonComment on above:> or =60 mg/dl - LOW CARDIOVASCULAR RISK<40 mg/dl - HIGH CARDIOVASCULAR RISK Triglyceride [Mass/Vol]83 mg/dL<=150Ohio State East Hospitalerum or plasma total cholesterol/high density lipoprotein (HDL) cholesterol mass eulalio 46-13-9737Djurvcxfgmm.total/Cholesterol in HDL [Mass ratio]Serum or plasma total cholesterol/high density lipoprotein (HDL) cholesterol mass [facility] HospitalComment on above:3.3 - 4.4 LOW RISK4.4 - 7.1 AVERAGE RISK7.1 - 11.0 MODERATE RISK>11.0 HIGH RISKFree testosterone measurement by LC-MS/MSon 82-45-1977Wsgrmhktbonc Free [Mass/Vol]Free testosterone measurement by LC-MS/MS0.0-4.2FCleveland Clinic South Pointe HospitalComment on above:Performed at: [facility] [employer] [id number] Director: Theron Roblero PhD, Phone: [phone] at: [address] [id number] Director: Katelynn Macdonald MD, Phone: [phone] mean value [Mass/volume] in Blood Estimated from glycated hemoglobinon 96-34-8851Bgutydg glucose Estimated from glycated hemoglobin (Bld) [Mass/Vol]Glucose mean value [Mass/volume] in Blood Estimated from glycated hemoglobinAccess Hospital DaytonLaboratory - Chemistry and Chemistry - challengeon 01-45-5345Pjvrcwbht (Vitamin B12) [Mass/Vol]336 pg/wA934-0898WrbjzgrbaAccess Hospital DaytonComment on above:Performed at: [employer] [id number] Director: Theron Roblero PhD, Phone: [phone] [Mass/Vol]11.0 ng/mL8.0-252.0Access Hospital DaytonFree T4 [Mass/Vol]1.03 ng/dL0.76-1.46Access Hospital DaytonGlucose [Mass/Vol]80 mg/fS02-291CapmxywmwAccess Hospital [facility] T4 [Mass/Vol]9.30 ug/dL4.80-13.90Access Hospital DaytonTSH Qn1.271 m[IU]/L0.358-3.740Access Hospital DaytonLaboratory - Hematology and Cell countson 82-70-2680KcR1u (Bld) [Mass fraction]5.0 %4.5-6.2FCleveland Clinic South Pointe HospitalComment on above:ADA RECOMMENDED LIMIT 4.0 - 6.0ADA THERAPEUTIC TARGET < 7.0ACTION SUGGESTED> 7.0MLR HEMOGLOBIN A1Con 04-01-2024 Glucose [Mass/Vol]97 mg/dLNOSaint Alexius HospitalIqicepccxqQgK4a (Bld) [Mass fraction]5 %4.5 - 6.2 %[facility] HealthcareComment on above:ADA RECOMMENDED LIMIT 4.0 - 6.0 ADA THERAPEUTIC TARGET < 7.0 ACTION SUGGESTED > 7.0 CLINISYNCNOAL HealthcareNo Panel Informationon 861870-Pqrqkpf Vitamin D Total22.2 ng/mLAccess Hospital DaytonComment on above:<20 ng/mL Vit D dylrdoywj19-<30 ng/mL Vit D cwmyzxcypezs45-862 ng/mL Vit D sufficient>100 ng/mL Potential ToxicityC-Peptide2.3 ng/mL1.1-4.4FC[facility] Comment on above:C-Peptide reference interval is for fasting patients. Dehydroepiandrosterone Dpjlneb022.0 ug/dL57.3-279.2FCleveland Clinic South Pointe HospitalFree Cortisol, Dialysis, LCMS0.385 ug/dL.[facility] Comment on above:These tests were developed and their performancecharacteristics determined by [employer]. They have not beencleared or approved by the Food and Drug Administration.Reference Range:8 AM 0.10 - 1.204 PM 0.042 - 0.872Performed at: [facility] [employer] [address] [place], [place] [id number] Dir martín: Kal Archibald MD, Phone: [phone] Triiodothyronine2.38 pg/mL 2.18-3.98Access Hospital DaytonReverse Triiodothyronine (T3)23.1 ng/dL9.2-24.1FCleveland Clinic South Pointe HospitalComment on above:This test was developed and its performance characteristicsdetermined by [employer]. It has not been cleared orapproved by the Food and Drug Administration.Performed at: [facility] [id number] Director: Katelynn Macdonald MD, Phone: [phone] Hormone Binding Tgkduzpu478.0 nmol/L24.6-122.0 Access Hospital DaytonComment on above:Performed at: [facility] [id number] Director: Theron Roblero PhD, Phone: [phone] Level17 ng/dL4-50[facility] Plasma serotonin measurement (mass/volume)on 81-41-8615Rddyrxfzc (P) [Mass/Vol] Plasma serotonin measurement (mass/volume)31-207Access Hospital DaytonComment on above:This test was developed and its performance characteristicsdetermined by [employer]. It has not been cleared orapproved by the Food and Drug Administration.Performed at: [employer] [id number] Director: Katelynn Macdonald MD, Phone: [phone] estrone measurementon 30-33-4650S8 [Mass/Vol]Serum estrone measurement.Access Hospital DaytonComment on above:Range Adult (Premenopausal) 27 - 231 Menstrual Cycle (1-10 days) 19 - 149 Menstrual Cycle (11-20 days) 32 - 176 Menstrual Cycle (21-30 days) 37 - 200 Adult (Postmenopausal) 0 - 125Performed at: [employer] [id number] Director: Katelynn Macdonald MD, Phone: [phone] or plasma estradiol (E2) measurement (mass/volume)on 50-39-5801C7 [Mass/Vol] Serum or plasma estradiol (E2) measurement (mass/volume).Access Hospital DaytonComment on above:Adult Female Range Follicular phase 12.5 - 166.0 Ovulation phase 85.8 - 498.0 Luteal phase 43.8 - 211.0 Postmenopausal <6.0 - 54.7 1st trimester 215.0 - >4300.0Roche ECLIA methodologySerum or plasma insulin measurement (units/volume)on 08-37-4327Dkiqsnc QnSerum or plasma insulin measurement (units/volume)2.6-24.9[facility] Comment on above:Performed at: [facility] [employer] [id number] Director: Theron Roblero PhD, Phone: [phone] or plasma progesterone measurement (mass/volume)on 29-13-2976Ulwmvcweadow [Mass/Vol]Serum or plasma progesterone measurement (mass/volume).Access Hospital DaytonComment on above:Follicular phase 0.1 - 0.9 Luteal phase 1.8 - 23.9 Ovulation phase 0.1 - 12.0 First trimester 11.0 - 44.3 Second trimester 25.4 - 83.3 Third trimester 58.7 - 214.0 Postmenopausal 0.0 - 0.1Performed at: [facility] [employer] [id number] [place], [place] [id number] Director: Theron Manley, Phone: [phone] Ab Qnon 64-53-2023Hoywtci Peroxidase Antibodies<9 [IU]/mL0-34Access Hospital DaytonThyroglobulin Ab Qveterans health administration [facility] [place] 82-73-6051Sfga-Thyroglobulin Antibody1.0 [IU]/mLAbnormal0.0-0.9Access Hospital DaytonComment on above:Thyroglobulin Antibody measured by Sarah CoulterMethodologyIt should be noted that the presence of thyroglobulinantibodies may not be pathogenic nor diagnostic, especiallyat very low levels. The assay table games shift manager has found thatfour percent of individuals without evidence of thyroiddisease or autoimmunity will have positive TgAb levels upto 4 IU/mL.Performed at: [employer] [address] [place], [place] [id number] Director: Theron Roblero PhD, Phone: [phone] [Mass/volume] in Serum or Plasmaon 21-34-3427Xnzbruzzjnboq [Mass/Vol] Thyroglobulin [Mass/volume] in Serum or Plasma.[facility] Comment on above:This test was developed and its performance characteristicsdetermined by [employer]. It has not been cleared or approvedby the Food and Drug Administration.Reference Range:Pubertal Childrenand Adults: &l t;40According to the National Academy of Clinical Biochemistry,the reference interval for Thyroglobulin (TG) should berelated to euthyroid patients and not for patients whounderwent thyroidectomy. TGreference intervals for thesepatients depend on the residual mass of the thyroid tissueleft after surgery. Establishing a post-operative baselineis recommended. The assay quantitation limit is 2.0 ng/mL.Performed at: [employer] [address] [place], [place] [id number] Director: Kal Archibald MD, Phone: [phone] TOMOSYNTHESIS DIAGNOSTIC BIon 29-77-9415[address] [address] Mammography Report Signed Patient: KARUNA DUMONT MR#: [id number] : 1980 Acct:[id number] Age/Sex: 43 / F ADM Date: 03/13/24 Loc: MAMMO Attending Dr: Sanjeev Lopez D.O. Ordering Physician: Sanjeev Lopez D.O. Results: Date of Service: 03/13/24 Follow Up: Procedure(s): MM tomosynthesis diagnostic BI Accession Number(s): [id number] cc: Johnathon Winter M.D.; Sanjeev Lopez D.O. Patient Name: KARUNA DUMONT MR#: [id number] : 1980 Exam Date: 03/13/2024 Ordering Doctor: [...] stomach cancer at age 67. LOCATION: [facility] BREAST COMPOSITION: There are scattered [...] PALPABLE LUMP SHOULD BE BIOPSIED. Dictated by: Monserrat Silva MD on 03/13/2024 at 14:56 Approved by: Monserrat Silva MD on 03/13/2024 at 14:58 Dictated By: Monserrat Silva M.D. Signed By: 03/13/24 1459 DD/ 1458 TD/TT: Machine Zipper Trimmer:TBHRadiology, Radiologist, - 03/13/2024 [place] [address] Mammography Report Signed Patient: KARUNA DUMONT MR#: [id number] : 1980 Acct:[id number] Age/Sex: 43 / F ADM Date: 03/13/24 Loc: MAMMO Attending Dr: Sanjeev Lopez D.O. Ordering Physician: Sanjeev Lopez D.O. Results: Date of Service: 03/13/24 Follow Up: Procedure(s): MM tomosynthesis diagnostic BI Accession Number(s): [id number] cc: Johnathon Winter M.D.; Sanjeev Lopez D.O. Patient Name: KARUNA DUMONT MR#: [id number] : 1980 Exam Date: 03/13/2024 Ordering Doctor: [...] stomach cancer at age 67. LOCATION: [facility] BREAST COMPOSITION: There are scattered [...] PALPABLE LUMP SHOULD BE BIOPSIED. Dictated by: Monserrat Silva MD on 03/13/2024 at 14:56 Approved by: Monserrat Silva MD on 03/13/2024 at 14:58 Dictated By: Monserrat Silva M.D. Signed By: 03/13/24 1459 DD/ 1458 TD/TT: Machine Zipper Trimmer: SCOOTER Macdonald Panel InformationOrdered By: Radiologist Radiology on 40-83-0930MYHF [employer] Work Phone: No Panel Informationon 59-79-6744Mjffydcnx Study observation (narrative)SCOOTER Ronquillo BREAST BI LIMITEDon 67-22-6626[place] [address] Ultrasound Report Signed Patient: KARUNA DUMONT MR#: [id number] : 1980 Acct:[id number] Age/Sex: 43 / F ADM Date: 03/13/24 Loc: MAMMO Attending Dr: Sanjeev Lopez D.O. Ordering Physician: Sanjeev Lopez D.O. Date of Service: 03/13/24 Procedure(s): US breast BI limited Accession Number(s): [id number] cc: Johnathon Winter M.D.; Sanjeev Lopez D.O. Patient Name: KARUNA DUMONT MR#: [id number] : 1980 Exam Date: 03/13/2024 Ordering Doctor: [...] stomach cancer at age 67. LOCATION: [facility] BREAST COMPOSITION: There are scattered [...] PALPABLE LUMP SHOULD BE BIOPSIED. Dictated by: Monserrat Silva MD on 03/13/2024 at 14:56 Approved by: Monserrat Silva MD on 03/13/2024 at 14:58 Dictated By: Monserrat Silva M.D. Signed By: 03/13/24 1459 DD/ 1458 TD/TT: Machine Zipper Trimmer:TBHRadiology, RadiologistMD - 03/13/2024 [place] [address] Ultrasound Report Signed Patient: KARUNA DUMONT MR#: [id number] : 1980 Acct:[id number] Age/Sex: 43 / F ADM Date: 03/13/24 Loc: MAMMO Attending Dr: Sanjeev Lopez D.O. Ordering Physician: Sanjeev Lopez D.O. Date of Service: 03/13/24 Procedure(s): US breast BI limited Accession Number(s): [id number] cc: Johnathon Winter M.D.; Sanjeev Lopez D.O. Patient Name: KARUNA DUMONT MR#: [id number] : 1980 Exam Date: 03/13/2024 Ordering Doctor: [...] stomach cancer at age 67. LOCATION: [facility] BREAST COMPOSITION: There are scattered [...] PALPABLE LUMP SHOULD BE BIOPSIED. Dictated by: Monserrat Silva MD on 03/13/2024 at 14:56 Approved by: Monserrat Silva MD on 03/13/2024 at 14:58 Dictated By: Monserrat Silva M.D. Signed By: 03/13/241458 DD/ 57 TD/TT: Machine Zipper Trimmer: SCOOTER MarieRaul METABOLIC FORDLon 60-18-1032Rintu gap [Moles/Vol]5 mmol/L Normal5-15[facility] HospitalComment on above:Performed By: #### ANNE, BMP #### [facility] ([id number]) [address] [place], [place] [address]Supjtou [Mass/Vol]8.1 mg/dLLow8.5-10.5POur [facility] of Mercy Hospital HospitalComment on above:Performed By: #### ANNE, BMP #### [facility] ([id number]) [address] [place], [place] [address]Vetedyil [Moles/Vol]107 mmol/EVkxarw01-675VfiLsaohm [place] HospitalComment on above:Performed By: #### ANNE, BMP #### [facility] ([id number]) [address] [place], [place] [address]SK6 [Moles/Vol]26 mmol/QRdltcf51-79EymIqtfrsWestern Reserve Hospital Comment on above:Performed By: #### ANNE, BMP #### [facility] ([id number]) [address] [place], [place] [address]Trmxfsdzfu [Mass/Vol]0.89 mg/dLNormal0.40-1.00[facility] HospitalComment on above:Result Comment: METHOD TRACEABLE TO IDMS STANDARD Performed By: #### CBC, BMP #### [facility] ([id number]) [address] [place], [place] [address]ONT/1.73 sq M.predicted among non-blacks MDRD (S/P/Bld) [Vol rate/Area]83 mL/min/{1.73_m2}Normal>59[facility] HospitalComment on above: Result Comment: Reported eGFR is based on the CKD-EPI 2020 equation that does not use a race coefficient.Performed By: #### CBC, BMP #### [facility] ([id number]) [address] [place] [address]Higqmqa [Mass/Vol]114 mg/rWAclu38-09XpuElbyca [facility] Comment on above:Performed By: #### CBC, BMP #### [facility] ([id number]) [address] [place] [address]Vgisylgqb [Moles/Vol]4.1 mmol/LNormal3.5-5.0[facility] HospitalComment on above:Performed By: #### CBC, BMP #### [facility] ([id number]) [address] [place] [address]Nzqget [Moles/Vol]138 mmol/SChbbrv979-645KtaRgqykj [facility] HospitalComment on above:Performed By: #### CBC, BMP #### [facility] ([id number]) [address] [place] [address]Gcwy nitrogen [Mass/Vol]15 mg/dLNormal5-23[facility] HospitalComment on above:Performed By: #### CBC, BMP #### [facility] ([id number]) [address] [place] [address]OORJWBQV BLOOD COUNTon 84-17-2379Yljxmzwpixb distribution width (RBC) [Ratio]14.5 %Rxxrsg33.5-15.0[facility] HospitalComment on above:Performed By: #### CBC, BMP #### [facility] ([id number]) [address] [place] [address]Ylllmkiiak (Bld) [Volume fraction]30.0 %Qwc67-70VllBwlxnz [place] HospitalComment on above:Performed By: #### CBC, BMP #### [facility] ([id number]) [address] [place] [address]Melepccbbf (Bld) [Mass/Vol]9.9 g/dLLow11.7-15.5POur [facility] HospitalComment on above:Performed By: #### CBC, BMP #### [facility] ([id number]) [address] [place], [place] [address]UWE (RBC) [Entitic mass]27.8 wgYtljcl15-24AslCfljgp [place] HospitalComment on above:Performed By: #### CBC, BMP #### [facility] ([id number]) [facility] [place], [place] [address]UPFE (RBC) [Mass/Vol]33.2 g/xEIdyffn59-61HgcFptaec Bray HospitalComment on above:Performed By: #### CBC, BMP #### [facility] ([id number]) [address] [place] [address]DNF (RBC) [Entitic vol]84 pWYrmhbc36-087StaEwvqha [place] HospitalComment on above:Performed By: #### CBC, BMP #### [facility] ([id number]) [address] [place] [address]Tnredgug mean volume (Bld) [Entitic vol]7.7 fLNormal7-12 ProMst. vincent's blounta [place] HospitalComment on above:Performed By: #### CBC, BMP #### [facility] ([id number]) [address] [place] [address]Wxnbzyspx (Bld) [#/Vol]267 10*3/aJScicdi248-478DroOywahn [place] HospitalComment on above:Performed By: #### CBC, BMP #### [facility] ([id number]) [address] [place] [address]OBP COUNT3.58 X10E12/LLow3.80-5.20[facility] Hospital Comment on above:Performed By: #### CBC, BMP #### [facility] ([id number]) [address] [place] [address]HMI (Bld) [#/Vol]15.6 10*3/uLHigh4.0-11.0ProDayton Osteopathic Hospitalca [place] HospitalComment on above:Performed By: #### CBC, BMP #### [facility] ([id number]) [address] [place], [place] [address]Coding Summaryon 87-32-6510Rjrldy SummaryHTMLBase 64 OnvsvkybOAf1oMy+PGhlYWQ+NN5QSUJdN65ozKWebE2oU2HIQXaGVdofDGZSKCtMSzGqieXwJK3szKKp ZXJu [file] Y29 (more content not included)...[facility] HospitalCoding SummaryHTMLBase 64 ZyswseudDDh4xGe+PGhlYWQ+WC9MATArJ89yaGHljN6nA8MJASmSFabyFKFOTRwUQdFfxmFmSG6wsUQi ZXJu [file] Y29 (more content not included)...[facility] HospitalConsent Formson 92-61-7430Balyjth Fihgn150.64.209.187.5762638915129188591761G63#1.00OTGTIFF [facility].Auto Diff 1on 97-39-3553Ycnu Ogle %6 %Normal-[facility] Orthopedic CenterComment on above:Performed By: #### [id number], 1771583, 8604863349, 6537060502, 8328671, 25593536, [id number] ####[facility] (DEFAULT)[address] [place] [address]Felr Abs#0.0 q60Mkipfy6.0-0.2Mohiohealth berger hospital HospitalComment on above:Performed By: #### [id number], 2355992, 9297866834, 6476039603, 0092284, 88514210, 0760883568 ####[facility] (DEFAULT)[address] [place] [address]Spezwiwtp/100 WBC (Bld)0.7 %Normal0.2-2.0 [facility] Orthopedic CenterComment on above:Performed By: #### [id number], 8318486, 3889358861, 5190138082, 3080980, 79146134, 7236970245 ####[facility] (DEFAULT)[address] [place] [address]Ptz Abs#0.1 u11Dwxsom1.0-0.4 [facility] HospitalComment on above:Performed By: #### [id number], 0574754, 5783398046, 5363084202, 9019018, 52608371, 0684000989 ####[facility] (DEFAULT)[address] [place] [address]Tyrludmnfko/100 WBC (Bld)1.3 % Normal0.9-4.0Maselect medical specialty hospital - trumbull HospitalComment on above:Performed By: #### [id number], 2139444, 5871671517, 6685492829, 5817565, 00271823, [id number] ####[facility] (DEFAULT)[address] [place] [address]Dqjvb Abs#1.6 p73Iuskth 1.3-2.9[facility] HospitalComment on above:Performed By: #### [id number], 8012424, 5565032379, 4937826791, 1068847, 42209477, 6992472313 ####[facility] (DEFAULT)[address] [place] [address]Yndixzbhqjd/100 WBC (Bld)25 % Ispall50-48Ilsarrju HospitalComment on above:Performed By: #### [id number], 7010675, 2422367891, 1087566578, 1770390, 66163417, 3851673680 ####[facility] (DEFAULT)[address] [place] [address]Beaf Abs#0.4 n35Cbwxse 0.0-0.8Magrlakehealth beachwood medical center HospitalComment on above:Performed By: #### 7385551044, 7246138, 2032342371, 0592661876, 3161966, 69181345, 0321538195 ####[facility] (DEFAULT)[address] [place] [address]Cric Abs#4.2 q29Cefccs0.5-9.2 [facility] HospitalComment on above:Performed By: #### [id number], 0133434, 8094926878, 0636506274, 5557126, 69324773, 5176468852 ####[facility] (DEFAULT)[address] [place] [address]Hugoxmkrcfo/100 WBC (Bld)67 % Qlxxsf59-20Hsdqwyan HospitalComment on above:Performed By: #### [id number], 1141815, 5744301789, 8574394136, 9789244, 76670139, 3163936608 ####[facility] (DEFAULT)[address] [place] [address]Ozntwmagk Auto (Bld) [#/Vol]on 56-37-4921Lharjhwzq (Bld) [#/Vol]Automated basophil count0.0-0.2 [facility] DaytonBasophils/100 WBC Auto (Bld)on 01-14-2024 Basophils/100 WBC (Bld)Automated basophil %0.2-2.0[facility] w/ Auto Diffon 37-05-0848Krexolbngru distribution width (RBC) [Ratio] 14.5 %Nvlnwi91.5-15.0[facility] HospitalComment on above:Performed By: #### [id number], 0027416, 3031778561, 1967507765, 1181422, 02498060, 3434668612 ####[facility] (DEFAULT)[address] [place] [address] 419[address]Syxtvzoors (Bld) [Volume fraction]37.9 %Invwhx96.7-40.4[facility] HospitalComment on above: Performed By: #### [id number], 5100285, 5351416539, 2709247586, 4621414, 56146854, 3323887603 ####[facility] (DEFAULT)[address] [place] [address]Wxmdhofujw (Bld) [Mass/Vol]12.3 g/dTPevgyv80.3-15.9[facility] Orthopedic CenterComment on above:Performed By: #### [id number], 0139642, 4161196946, 4210193225, 6584121, 60962558, 1022105512 ####[facility] (DEFAULT)[address] [place], [place] [address]Man Diff?AutoInvalid Interpretation Code [facility] Orthopedic CenterComment on above:Performed By: #### [id number], 3986357, 6177947959, 0417956556, 2147943, 25064502, 5446583548 ####[facility] (DEFAULT)[address] [place], [place] [address]H (RBC) [Entitic mass]27 pg Fnlvqh57-60Ytdmkntr HospitalComment on above:Performed By: #### 3514782910, 8735710, 1916146640, 2761576371, 0319396, 39434995, 2691532326 ####[facility] (DEFAULT)[address] [place], [place] [address]HC (RBC) [Mass/Vol]33 g/lXAmivoa65-39Xcjqenku HospitalComment on above:Performed By: #### 7609604612, 9182832, 5297513516, 8979143660, 9770184, 57588204, 8469451180 ####[facility] (DEFAULT)[address] [place] [address]OEL (RBC) [Entitic vol] 84 uAOcdylv11-637Yrndygfd HospitalComment on above:Performed By: #### [id number], 9070261, 6179827743, 3725750184, 4419639, 49920986, 6255315254 ####[facility] (DEFAULT)[address] [place] [address] 5[address]Mmupvhnz 270 p27Lymggf848-734Ixhloyqq HospitalComment on above:Performed By: #### [id number], [id number], [id number], [id number], [id number], [id number], [id number] ####[facility] (DEFAULT)[address] [place] [address] 64645Zhscjskx mean volume (Bld) [Entitic vol]7.4 fLNormal6.3-10.2[facility] HospitalComment on above:Performed By: #### [id number], [id number], [id number], [id number], [id number], [id number], [id number] ####[facility] (DEFAULT)[address] [place] [address] 34627ZOY8.53 p15Zzlyxm5.70-5.30[facility] HospitalComment on above: Performed By: #### [id number], [id number], [id number], [id number], [id number], [id number], [id number] ####[facility] (DEFAULT)[address] [place] [address] 38423KGK4.3 b82Evronz6.5-10.5[facility] HospitalComment on above: Performed By: #### [id number], [id number], [id number], [id number], 1684223, [id number], [id number] ####[facility] (DEFAULT)[address] [place] [address] 16204QVT Standardon 76-93-2333Ymymerahyn ChemNormalMadison Health HospitalComment on above:Performed By: #### [id number], 0706372, 7377877519, 6196294171, 0598362, 42066169, [id number] ####[facility] (DEFAULT)[address] [place] [address] 87383mREJ Non AA>60Invalid Interpretation Code [facility] HospitalComment on above:Performed By: #### [id number], 5551156, 3685897314, 6641275821, 0897383, 71653850, [id number] ####[facility] (DEFAULT)[address] [place] [address] 41406fRBB AA>60Invalid Interpretation CodeMadison Health HospitalComment on above:Performed By: #### [id number], 2591809, 6214926799, 5520391947, 3755822, 91047123, 7813794323 ####[facility] (DEFAULT)[address] [place] [address] 19754Ydxfpoj [Mass/Vol]3.6 g/dLNormal 3.5-5.0Maselect [facility] hospital [facility]umbull HospitalComment on above:Performed By: #### [id number], 2849715, 6215955201, 2429302095, 5589705, 83087707, [id number] ####[facility] (DEFAULT)[address] [place] [address] 26521Ynrwxfn/Globulin [Mass ratio]1.2 {ratio}Low1.4-2.6[facility] HospitalComment on above:Performed By: #### [id number], 2459853, 0376625766, 2813424182, 0801366, 29181012, [id number] ####[facility] (DEFAULT)[address] [place] [address] 24366Cmt Phos73 IU/WCnfhme89-03Wqpyujgi HospitalComment on above:Performed By: #### [id number], 7864187, 1183360659, 9401517565, 8412241, 91598947, 4467531205 ####[facility] (DEFAULT)[address] [place] [address] 26960DRD [Catalytic activity/Vol]16.0 U/GHycklc83.0-54.0[facility] HospitalComment on above:Performed By: #### [id number], 1583731, 9655327209, 3260503058, 9833305, 21460443, 5405879148 ####[facility] (DEFAULT)[address] [place] [address] 22210Qoadn gap [Moles/Vol]6.9 mmol/LNormal5.0-19.0[facility] HospitalComment on above:Performed By: #### [id number], 3415033, 8211647558, 6488005732, 5345949, 34816968, 0554383325 ####[facility] (DEFAULT)[address] [place] [address] 76663BXK [Catalytic activity/Vol]19 U/AVxgtqf71-00Bwaiyrwx Hospital Comment on above:Performed By: #### [id number], 6077944, 0606532879, 1861288041, 2349366, 11235956, 6118690244 ####[facility] (DEFAULT)[address] [place] [address] 43822Loql Total0.2 mg/dLLow0.3-1.2MP[facility] Comment on above:Performed By: #### [id number], 6903224, 2487593347, 0184320338, 7983206, 52243026, 8053892541 ####[facility] (DEFAULT)[address] [place] [address] 16282Rysnxys [Mass/Vol]8.4 mg/dLLow8.9-10.3MPike Community HospitalComment on above:Performed By: #### [id number], 0795495, 8642114092, 0573674637, 8970463, 98512083, 1068949362 ####[facility] (DEFAULT)[address] [place] [address] 67201Fjkagxxd [Moles/Vol]108 mmol/LQyxgke712-280 [facility] CenterComment on above:Performed By: #### [id number], 5255846, 6983649219, 8516766906, 7487006, 30365934, 5064010648 ####[facility] (DEFAULT)[address] [place] [address] 07485LB7 [Moles/Vol]24 mmol/LNormal 21-32[facility]opedic CenterComment on above:Performed By: #### [id number], 8912147, 0321209757, 6387712641, 1984226, 57057203, 2666926317 ####[facility] (DEFAULT)[address] [place] [address] 49359Jewrmcfbsj [Mass/Vol]0.78 mg/dL Normal0.60-1.30[facility]opedic CenterComment on above:Performed By: #### [id number], 5868044, 2695673945, 1676979171, 7885893, 24566600, 3843128381 ####[facility] (DEFAULT)[address] [place] [address] 23858Pbncoiya (S) [Mass/Vol] 2.9 g/dLNormal1.5-4.3[facility] HospitalComment on above:Performed By: #### [id number], 3958251, 0851889590, 3423443251, 3501275, 54465077, 1607379323 ####[facility] (DEFAULT)[address] [place] [address] 04735Jvlzetk [Mass/Vol]88.0 mg/fASapeoh37.0-118.0[facility] HospitalComment on above:Performed By: #### [id number], 8348683, 3140602085, 8446339960, 5291099, 22498553, 0645090939 ####[facility] (DEFAULT)[address] [place] [address] 29854Yniqfnmnhb230 mOsm/LInvalid Interpretation CodeMadison Health HospitalComment on above:Performed By: #### [id number], 4713461, 1729909440, 7130246990, 2241728, 72119102, 9549134556 ####[facility] (DEFAULT)[address] [place] [address] 73941Lfbairzfh [Moles/Vol]3.9 mmol/LNormal3.6-5.1[facility] Hospital Comment on above:Performed By: #### [id number], 6052304, 0415013707, 4296271568, 3426184, 76781619, 4658025078 ####[facility] (DEFAULT)[address] [place] [address] 53025Dbdgwno [Mass/Vol]6.5 g/dLNormal6.5-8.1[facility] HospitalComment on above:Performed By: #### [id number], 7797361, 9663502523, 3028887704, 2499441, 92550404, 5331211745 ####[facility] (DEFAULT)[address] [place] [address] 24441Qcmjji [Moles/Vol]135.0 mmol/EBmw604.0-144.0 [facility] HospitalComment on above:Performed By: #### [id number], 6305045, 3344793552, 0467218440, 2911514, 75136152, 5202299579 ####[facility] (DEFAULT)[address] [place] [address] 51854Cufa nitrogen [Mass/Vol]15 mg/dL Normal[address] [place], [place] [address]Comment on above:Performed By: #### [id number], 8408425, 9316058203, 7119046306, 6768059, 38004459, 4965910895 ####[facility] (DEFAULT)[address] [place] [address] 83850Xche nitrogen/Creatinine [Mass ratio]19.2 mg/mgHigh4.6-16.2MPike Community HospitalComment on above:Performed By: #### [id number], 0174479, 7156332595, 3789686394, 7987992, 59924289, 7400356535 ####[facility] (DEFAULT)[address] [place] [address] 61004IF Angiography Headon 76-98-2985Qa angiography head w/contrast/noncontrastEXAM: CT Angiography Head HISTORY: Persistent headache not [...] Racheal Mathis DO 01/14/24 8:11 am Technologist: [facility] Head or Brain w/o Contraston 15-48-8205KF Head or Brain w/o ContrastEXAMINATION: CT Head or Brain w/o Contrast INDICATION: [...] Clayton Wright MD 01/14/24 6:53 am [facility] Clinical Summaryon 86-76-9927AL[facility] [address] [place], [place] [id number] ED Clinical Summary PERSON INFORMATION Name: KARUNA DUMONT Age: 43 Years Sex: FEMALE : 1980 MRN: Acct#: Visit Reason: Headache; HEADACHE Arrival: 01/14/2024 04:59:27 Discharge: 01/14/2024 09:46:00 LOS: 000 04:47 Check In: 01/14/2024 04:59:27 Checkout:01/14/2024 09:46:00 Address: [facility] [address] PCP: Johnathon Winter MD PROVIDER INFORMATION Provider [...] 6 mg Subcutaneous metoclopramide 10 mg Intramuscular acetaminophen/butalbital/caffeine (acetaminophen/butalbital/caffeine 325 mg-50 mg-40 mg oral tablet) 2 [...] with a bad headache 11/10. Usually does notget headaches. No nausea or vomiting, NOS . History of Present Illness I have assumed care of the patient from Dr. Mckeon, who has discussed the clinical presentation, work-up, and ED course thus far. I have reviewed the patient?s medical record and ED course and agreewith all aspects of care thus far. 43-year-old female presented to ER for evaluation of headache. 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 Stated headache is worse, not typical. Had been seen by Dr. Mckeon. Workup has been done. CT brain without contrast was negative. There is some initial concern, regardingother possibility so CT brain with angiogram also obtained. CBC chemistry profile and various other lab work is also initiated. Treatment headache including various combination as noted, hydromorphone, Benadryl, antiemetic, andsubsequently IV with dexamethasone. Signed out to myself pending diagnostic workup of CT angiogram. On reassessment at 9:20 AM, the patient was sleeping. Woke easily. at bedside. CT brain andCTA report is negative for acute process. No [...] = 2 cap(s), Oral, Daily, 0 Refill(s) amphetamine-dextroamphetamine 20 mg oral tablet: 20 mg = 1 tab(s), Oral, TAKE 1 TABLET BY MOUTH EVERY DAY AT MIDDAY amphetamine-dextroamphetamine 30 mg oral capsule, extended release: 30 [...] Use: Past Substance Use (more content not included)...[facility]ED [facility] - Physicianon 27-99-9614UP Note - PhysicianPatient: KARUNA DUMONT Age: 43 years Sex: FEMALE [...] up this morning with a bad headache 8/10. Usually does notget headaches. No nausea or vomiting, NOS . History of Present Illness I have assumed care of the patient from Dr. Mckeon, who has discussed the clinical presentation, work-up, and ED course thus far. I have reviewed the patient?s medical record and ED course and agreewith all aspects of care thus far. 43-year-old female presented to ER for evaluation of headache. 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 Stated headache is worse, not typical. Had been seen by Dr. Mckeon. Workup has been done. CT brain without contrast was negative. There is some initial concern, regardingother possibility so CT brain with angiogram also obtained. CBC chemistry profile and various other lab work is also initiated. Treatment headache including various combination as noted, hydromorphone, Benadryl, antiemetic, andsubsequently IV with dexamethasone. Signed out to myself pending diagnostic workup of CT angiogram. On reassessment at 9:20 AM, the patient was sleeping. Woke easily. at bedside. CT brain andCTA report is negative for acute process. No [...] = 2 cap(s), Oral, Daily, 0 Refill(s) amphetamine-dextroamphetamine 20 mg oral tablet: 20 mg = 1 tab(s), Oral, TAKE 1 TABLET BY MOUTH EVERY DAY AT MIDDAY amphetamine-dextroamphetamine 30 mg oral capsule, extended release: 30 [...] Plan Diagnosis Sudden onset of severe headache (ZIE34-SH R51.9, Discharge, Medical) Headache, unspecified (UJL43-RL R51.9, Medical) Plan Condition: Improved, Stable. Disposition: Disch (more content not included)...[facility] HospitalED Patient Summaryon [id number] [facility] SummaryC[facility] - [facility] [address] [place] [address] PATIENT DISCHARGE INSTRUCTIONS Patient Information Name: KARUNA DUMONT Age: 43 Years Date of : 1980 Reason For Visit: Headache; HEADACHE Arrival Time: 01/14/2024 04:59:27 Primary Care Physician: Johnathon Winter MD Attending Physician: Santy Mckeon MD Comment: Visit Diagnosis: Diagnoses This Visit Headache ([id number]) Headache, unspecified (R51.9) Sudden onset of severe headache (R51.9) [facility] is open Monday through Monday from 9A to 6P and Monday and Monday from 9A to 5P Prescription Information: If you have been given a prescription for narcotics, seek immediate medical attention if you have any difficulty breathing or any sudden status changes such as confusion andsleepiness. If you or anyone you know is experiencing suicidal thoughts, mental health, alcohol and/or drug addiction problems; contact the [facility] 24/10 Crisis Hotline -Text 6NMVF fk 335271. If you received any narcotics, sedation, or [...] legal documents With: Address: When: Johnathon Winter [address] [place] [address], [place] [address] Business (1) Within 2 to 4 days [...] may include severe infection, meningitis, intracranial hemorrhage orstroke. On your evaluation today, no specific emergency [...] specialist for reevaluation each time you have beento the emergency department for treatment of your headache. Additional treatment or diagnostic workup may be necessary. Review headache instructions provided. Keep yourself well hydrated. Resume your routine medication as instructed by your doctor. Contact your family doctor or the emergency department you have any questions or concerns regardingyour treatment today. Medication Information: The exam and treatment you received today in the [facility] Emergency Department were for an urgent problem and are not intended as complete care. It is important for you to follow up with a doctor, nurse practitioner, or physician?s care management assistant for ongoing care. If your symptoms become worse or you donot improve as expected and you are unable [...] so we can reach you if necessary. [facility] Emergency Department has provided you with a complete list of medications post discharge. Please inform your primary care nurse/provider of your visit and for further instruction on these medications. Any specific questions regarding your chronic medications and dosages should be discussed with your primary care physician(s) and/or pharmacist. Additional medications on your home medication list not specifically addressed. Please contact the ordering physician if you have questions about these medications. amphetamine-dextroamphetamine (amphetamine-dextroamphetamine 20 mg oral tablet) 1 tab(s) Oral (given by mouth). TAKE 1 TABLET BY MOUTH EVERY DAY AT MIDDAY. amphetamine-dextroamphetamine (amphetamine-dextroa (more content not included)...[facility] HospitalEosinophils/100 WBC Auto (Bld)on 01-14-2024 Eosinophils/100 WBC (Bld)Automated eosinophil %0.9-4.0[facility] DaytonErythrocyte distribution width Auto (RBC) [Ratio]on 49-80-2536Bgxkjptnjez distribution width (RBC) [Ratio]Erythrocyte distribution width [Ratio] by Automated count11.5-15.0[facility] Hospital DaytonEstimated glomerular filtration rate (GFR) non- American 11-43-1488QCQ/1.73 sq M.predicted among non-blacks MDRD (S/P/Bld) [Vol rate/Area]Estimated glomerular filtration rate (GFR) non- [facility]Extra Greenon 88-77-1073Atnh CollectedYesInvalid Interpretation [facility] HospitalComment on above:Performed By: #### [id number], 7668076, 5500129297, 7511317248, 3408106, 70108768, [id number] ####[facility] (DEFAULT)[address] [place] [address] 69671Iflmiqiw Calc (S) [Mass/Vol]on 42-79-6668Kzbpfasy (S) [Mass/Vol]Serum globulin measurement by calculation (mass/volume)1.5-4.3 [facility] DaytonHematocrit Auto (Bld) [Volume fraction]on 39-21-6886Kkxsjlzwsf (Bld) [Volume fraction]Hematocrit [Volume Fraction] of Blood by Automated count33.7-40.4FCleveland Clinic South Pointe HospitalHemoglobin [Mass/volume] in Bloodon 00-32-4657Fjbeonfret (Bld) [Mass/Vol]Hemoglobin [Mass/volume] in Blood11.3-15.9[facility] Hospital DaytonLaboratory - Chemistry and Chemistry - challengeon 74-75-9891Gmoeuub [Mass/Vol]3.6 g/dL 3.5-5.0[facility] DaytonALP [Catalytic activity/Vol]73 U/L32-91 [facility] DaytonALT [Catalytic activity/Vol]16.0 U/L14.0-54.0 [facility] DaytonAST [Catalytic activity/Vol]19 U/L15-41 [facility] DaytonBilirubin [Mass/Vol]0.2 mg/dLLow0.3-1.2 [facility] DaytonCalcium [Mass/Vol]8.4 mg/dLLow8.9-10.3FCleveland Clinic South Pointe HospitalChloride [Moles/Vol]108 mmol/I585-893DvqohiiraAccess Hospital DaytonCO2 [Moles/Vol]24 mmol/N86-61UeidbbqcxAccess Hospital Dayton Creatinine [Mass/Vol]0.78 mg/dL0.60-1.30[facility] GFR/1.73 sq M.predicted MDRD (S/P/Bld) [Vol rate/Area]mL/min/{1.73_m2}[facility] Hospital DaytonGlucose [Mass/Vol]88.0 mg/dL74.0-118.0[facility] DaytonPotassium [Moles/Vol]3.9 mmol/L3.6-5.1FCleveland Clinic South Pointe HospitalProtein [Mass/Vol]6.5 g/dL6.5-8.1FAdena Regional Medical Centerodium [Moles/Vol]135.0 mmol/RLep999.0-144.0[facility] DaytonUrea nitrogen [Mass/Vol]15 mg/dL8-26[facility] Hospital DaytonUrea nitrogen/Creatinine [Mass ratio]19.2 mg/mgHigh4.6-16.2FC[facility] Clinic [facility] Pointe HospitalLaboratory - Hematology and Cell countson 78-97-6189DIK (Bld) [Velocity]8 mm/h0-20[facility] Hospital DaytonLeukocytes [#/volume] corrected for nucleated erythrocytes in Blood by Automated counon 56-32-5265GCJ corrected for nucl RBC Auto (Bld) [#/Vol]Leukocytes [#/volume] corrected for nucleated erythrocytes in Blood by Automated coun3.5-10.5FCleveland Clinic [facility] Hospital Lymphocytes Auto (Bld) [#/Vol]on 05-95-9432Udffeckcoys (Bld) [#/Vol]Lymphocytes [#/volume] in Blood by Automated count1.3-2.9[facility] Lymphocytes/100 WBC Auto (Bld)on 88-76-7677Kcgofeapvaf/100 WBC (Bld) Lymphocytes/100 leukocytes in Blood by Automated efmlj25-96RzrdtvtnaMercy Health Allen HospitalH Auto (RBC) [Entitic mass]on 89-86-6375VBQ (RBC) [Entitic mass] MCH [Entitic mass] by Automated edyhb86-26NhplpqfeqAccess Hospital DaytonMCHC Auto (RBC) [Mass/Vol]on 80-88-9211BWRN (RBC) [Mass/Vol]MCHC [Mass/volume] by Automated flywg05-10DkbzcvpqoAccess Hospital DaytonMCV Auto (RBC) [Entitic vol]on 56-28-5118IPE (RBC) [Entitic vol]MCV [Entitic volume] by Automated count 81-100Access Hospital DaytonMonocytes Auto (Bld) [#/Vol]on 01-14-2024 Monocytes (Bld) [#/Vol]Automated blood monocyte count0.0-0.8[facility] Hospital DaytonMonocytes/100 WBC Auto (Bld)on 59-84-8625Fjaebliji/100 WBC (Bld) Automated monocyte %1-12[facility] Hospital DaytonNeutrophils Auto (Bld) [#/Vol]on 55-06-6457Asgelodaljp (Bld) [#/Vol]Neutrophils [#/volume] in Blood by Automated count1.5-9.2FCleveland Clinic South Pointe HospitalNeutrophils/100 WBC Auto (Bld)on 31-95-6739Qygqderijfa/100 WBC (Bld)Automated neutrophil %44-88Access Hospital DaytonNo Panel Informationon 30-83-1619Edu Manual Differential Auto AutoAccess Hospital DaytonEosinophils # (Auto)0.1 x100.0-0.4 [facility] Hospital DaytonOsmolality270 mOsm/LFCleveland Clinic South Pointe HospitalPlatelet mean volume Auto (Bld) [Entitic vol]on 76-23-6939Djncrhhv mean volume (Bld) [Entitic vol]Platelet mean volume [Entitic volume] in Blood by Automated count6.3-10.2FCleveland Clinic South Pointe HospitalPlatelets Auto (Bld) [#/Vol]on 81-80-6995Ddwypmbty (Bld) [#/Vol]Platelets [#/volume] in Blood by Automated -002CgcauacieAccess Hospital DaytonRBC Auto (Bld) [#/Vol]on 21-07-8508GNN (Bld) [#/Vol]Erythrocytes [#/volume] in Blood by Automated count 3.70-5.30[facility] Hospitaled Rateon 45-24-6611Lli Rate8 mm/hr Normal0-20[facility] Orthopedic CenterComment on above:Performed By: #### [id number], 2452901, 7170180470, 5623577002, 4617040, 96072068, [id number] ####[facility] (DEFAULT)[address] [place] [address] 26481Zwufn or plasma albumin/globulin mass ratioon 50-23-8582Sbplfdw/Globulin [Mass ratio]Serum or plasma albumin/globulin mass ratioLow1.4-2.6FC[facility] Clinic [facility] Hospital Serum or plasma anion gap determinationon 27-50-3696Jkvdf gap [Moles/Vol]Serum or plasma anion gap determination5.0-19.0[facility] VITAMIN B12on 60-80-5666Ksrfmswgs (Vitamin B12) [Mass/Vol]303 pg/mL232 - 1245 pg/mLNOMS HealthcareComment on above:Performed at: [facility] Lab[address] [id number] Script Supervisor: Theron Roblero PhD, Phone: [phone] [facility] CBC WITH AUTO DIFFon 66-36-0572RHDEBSJHX ABSOLUTE AUTO0.1NOMS HealthcareBasophils/100 WBC (Bld)0.8 %0.2 - 2.0 %[facility] Eosinophils/100 WBC (Bld)1.5 %0.9 - 7.0 %[facility] HospitalErythrocyte distribution width (RBC) [Ratio]13.7 %11.0 - 15.0 %[facility] HospitalHematocrit (Bld) [Volume fraction]41.5 %36.0 - 48.0 %[facility] HospitalHemoglobin (Bld) [Mass/Vol]12.9 g/dL 12.0 - 16.0 g/dLSaint Luke's HospitalIMMATURE GRANULOCYTES ABS AUTO0.02NOSaint [facility]ius Hospital Immature granulocytes/100 WBC (Bld)0.3 %0.0 - 0.5 %[facility] HospitalInterpretation and review of laboratory resultsAbnormalSaint Luke's HospitalLYMPHOCYTES ABSOLUTE AUTO2.5NOMS Doctors HospitalLymphocytes/100 WBC (Bld)34.0 %20.5 - 60.0 %[facility] HospitalMCH (RBC) [Entitic mass]27.4 pg26.7 - 34.0 pgSaint John's Aurora Community HospitalHC (RBC) [Mass/Vol]31.1 g/dL29.9 - 35.2 g/dLSaint Luke's HospitalMCV (RBC) [Entitic vol]88.3 fL 81.0 - 99.0 fLSaint Luke's HospitalMONOCYTES ABSOLUTE AUTO0.4NOSaint Alexius Hospital Monocytes/100 WBC (Bld)5.9 %1.7 - 12.0 %[facility] HospitalNEUTROPHILS ABSOLUTE AUTO 4.2NOMS Doctors HospitalNeutrophils/100 WBC (Bld)57.5 %43.0 - 75.0 %[facility] Platelet mean volume (Bld) [Entitic vol]8.7 fLLow9.5 - 13.5 fLSaint Luke's HospitalTBH EO #0.1NOMS Doctors HospitalTB KCP620WERRParkland Health Center RBC4.70NOMS [facility] WBC 7.3NOSaint Alexius HospitalCLINISYNCNFreeman Neosho HospitalMLR HEMOGLOBIN A1Con 17-37-1904Lgeqwfb [Mass/Vol]97 mg/dLSaint Luke's HospitalHbA1c (Bld) [Mass fraction]5.0 %4.5 - 6.2 %[facility] HealthcareComment on above:ADA RECOMMENDED LIMIT 4.0 - 6.0 ADA THERAPEUTIC TARGET < 7.0 ACTION SUGGESTED > 7.0 CLINISYNCNOSaint Alexius HospitalHCG ( test) Ql (U)on 93-39-7091Enor Test, Ur NegativeNOMS MacdonaldAL YgLon 80-66-8602CTafiypui: [id number] Received: 12/07/23 Status: NATHAN Guzmán Num: [id number] Spec Type: Surgical Subm Dr: Sanjeev Lopez Tissues: A Endometrium - Biopsy (EMBX) Procedures: HE/2, Gross/Micro L4 Age/ Patient Sex Location Account Attending Physician Karuna Dumont 43/F [place] [id number] Sanjeev Lopez SPEC NUM: [id number] RECD: 12/07/23 STATUS: NATHAN GUZMÁN NUM: [id number] GENEVA: 12/06/23- SUBM DR: Sanjeev Lopez ENTERED: 12/07/23 [facility] DR: Bert,Sandra SPEC TYPE: Surgical DEPT: ROLDAN THOMPSON ENTERED BY: [id number] RECV BY: [id number] ORDERED: HE/2, Gross/Micro L4 ORDERED: HE/2, Gross/Micro [...] are performed supporting the above interpretation Specimen: [id number] Received: 12/07/23 Status: KASIEKiet Guzmán Num: [id number] Spec Type: Surgical Subm Dr: Sanjeev Lopez Tissues: A Endometrium - Biopsy (EMBX) Procedures: HE/2, Gross/Micro L4 Patient: Karuna Dumont [id number] (Continued) Specimen: [id number] Received: 12/07/23 (Continued) Signed (signature on file) Frida Kirby MD 12/12/23 2158 Specimen: [id number] Received: 12/07/23 Status: NATHAN Guzmán Num: [id number] Spec Type: Surgical Subm Dr: Sanjeev Lopez Tissues: A Endometrium - Biopsy (EMBX) Procedures: HE/2, Gross/Micro L4 Patient: Karuna Dumont [id number] (Continued) Specimen: [id number] Received: 12/07/23 (Continued) CPT Codes 00838 Specimen: [id number] Received: 12/07/23 Status: NATHAN Guzmán Num: [id number] Spec Type: Surgical Subm Dr: Sanjeev Lopez Tissues: A Endometrium - Biopsy (EMBX) Procedures: HE/2, Gross/Micro L4 Patient: Karuna Dumont [id number] (Continued) Signed (signature on file) Elia-Blake Kirby MD 12/12/[address] [place] [address] Physician GroupALL DHEA SULFATEon 37-75-6440LACX-SULFATE 40.8 ug/lMBxjlbuez68.3 - 279.2 ug/dLNOMS HealthcareMETRO SEX BINDING HORMONE (SHBG), TESTOSTERONE, FREE AND BIOAVAILABLEon 89-39-1442HLJ HORM BINDING GLOB, SERUM60.9 nmol/L24.6 - 122.0 nmol/LNOMS HealthcareComment on above:Performed at: [facility] [employer] [id number] Script Supervisor: Theron Roblero PhD, Phone: [phone] No Panel Informationon 69-83-7135Ixuplyvflpjnrb and review of laboratory results AbnormalNOMS HealthcareCLINISYNCNOMS HealthcareSRMCOH TESTOSTERONE FREE/TOT EQUILIBon 15-73-3229RNGU TESTOSTERONE(DIRECT)<0.20.0 - 4.2 pg/mLNOMS Healthcare Comment on above:Performed at: [address] [id number] Script Supervisor: Theron Roblero PhD, Phone: [phone] Performed at: [address] [id number] Script Supervisor: Katelynn Macdonald MD, Phone: [phone] Testosterone [Mass/Vol]ng/dLAbnormal8 - 60 ng/dLNOAL HealthcareFree testosterone measurement by LC-MS/MSon 36-96-1317Rrcowfgapfkq Free [Mass/Vol]<0.2 pg/mL 0.0-4.2FCleveland Clinic South Pointe HospitalComment on above:Performed at: [facility] [employer] [id number] Director: Theron Roblero PhD, Phone: [phone] at: - [facility] [address] [id number] Director: Katelynn Macdonald MD, Phone: [phone] Panel Informationon 02-96-2644Niwosspjcahguvuotjqiek Rruqier10.8 ug/aSRjzqcjzl19.3-279.2FAdena Regional Medical Centerex Hormone Binding Mdgrpfdx73.9 nmol/L24.6-122.0Access Hospital DaytonComment on above: Performed at: - [facility] [address] [place], [place] [id number] Director: Theron Roblero PhD, Phone: [phone] Level<3 ng/dL Abnormal8-60Access Hospital DaytonMM TOMOSYNTHESIS DIAGNOSTIC LTon 25-46-9773[address] [address] Mammography Report Signed Patient: KARUNA DUMONT MR#: [id number] : 1980 Acct:[id number] Age/Sex: 42 / F ADM Date: 11/15/23 Loc: MAMMO Attending Dr: Sanjeev Lopez D.O. Ordering Physician: Sanjeev Lopez D.O. Results: Date of Service: 11/15/23 Follow Up: Procedure(s): MM tomosynthesis diagnostic LT Accession Number(s): [id number] cc: Johnathon Winter M.D.; Sanjeev Lopez D.O. Patient Name: KARUNA DUMONT MR#: [id number] : 1980 Exam Date: 11/15/2023 Ordering Doctor: [...] stomach cancer at age 67. LOCATION: [facility] BREAST COMPOSITION: There are scattered [...] PALPABLE LUMP SHOULD BE BIOPSIED. Dictated by: Monserrat Silva MD on 11/15/2023 at 11:23 Approved by: Monserrat Silva MD on 11/15/2023 at 11:25 Dictated By: Monserrat Silva M.D. Signed By: 11/15/23 1126 DD/ 1125 TD/TT: Machine Zipper Trimmer:MAHSAHRadiologbenji, RadiologistMD - 11/15/2023 [place] [address] Mammography Report Signed Patient: KARUNA DUMONT MR#: [id number] : 1980 Acct:[id number] Age/Sex: 42 / F ADM Date: 11/15/23 Loc: MAMMO Attending Dr: Sanjeev Lopez D.O. Ordering Physician: Sanjeev Loepz D.O. Results: Date of Service: 11/15/23 Follow Up: Procedure(s): MM tomosynthesis diagnostic LT Accession Number(s): [id number] cc: Johnathon Winter M.D.; Sanjeev Lopez D.O. Patient Name: KARUNA DUMONT MR#: [id number] : 1980 Exam Date: 11/15/2023 Ordering Doctor: [...] stomach cancer at age 67. LOCATION: [facility] BREAST COMPOSITION: There are scattered [...] PALPABLE LUMP SHOULD BE BIOPSIED. Dictated by: Monserrat Silva MD on 11/15/2023 at 11:23 Approved by: Monserrat Silva MD on 11/15/2023 at 11:25 Dictated By: Monserrat Silva M.D. Signed By: 11/15/23 1126 DD/ 1125 TD/TT: Machine Zipper Trimmer: [facility] HospitalRadiology Study observation (narrative)[facility] HospitalMM TOMOSYNTHESIS DIAGNOSTIC LTOrdered By: Radiologist Radiology on 50-95-3896UQSWSaint Luke's Hospital Work Phone: aLL CBC WITH AUTO DIFFon 82-65-3412EAZWGNMDN ABSOLUTE AUTO0.1NOMS HealthcareBasophils/100 WBC (Bld)1.1 %0.2 - 2.0 %[facility] Healthcare Eosinophils/100 WBC (Bld)2.2 %0.9 - 7.0 %[facility] HospitalErythrocyte distribution width (RBC) [Ratio]14.5 %11.0 - 15.0 %[facility] HospitalHematocrit (Bld) [Volume fraction]39.8 %36.0 - 48.0 %[facility] HospitalHemoglobin (Bld) [Mass/Vol]12.6 g/dL 12.0 - 16.0 g/dLSaint Luke's HospitalIMMATURE GRANULOCYTES ABS AUTO0.01NOSaint Alexius Hospital Immature granulocytes/100 WBC (Bld)0.2 %0.0 - 0.5 %[facility] HospitalLYMPHOCYTES ABSOLUTE AUTO1.8NOMS Doctors HospitalLymphocytes/100 WBC (Bld)33.3 %20.5 - 60.0 %[facility] HospitalH (RBC) [Entitic mass]27.9 pg26.7 - 34.0 pgNONevada Regional Medical CenterHC (RBC) [Mass/Vol]31.7 g/dL29.9 - 35.2 g/dLSaint Luke's HospitalMCV (RBC) [Entitic vol]88.1 fL 81.0 - 99.0 fLSaint Luke's HospitalMONOCYTES ABSOLUTE AUTO0.3NOSaint Alexius Hospital Monocytes/100 WBC (Bld)5.4 %1.7 - 12.0 %[facility] HospitalNEUTROPHILS ABSOLUTE AUTO 3.2NOMS HealthcareNeutrophils/100 WBC (Bld)57.8 %43.0 - 75.0 %[facility] Platelet mean volume (Bld) [Entitic vol]9.7 fL9.5 - 13.5 fLSaint Luke's HospitalTB EO #0.1NOMS Doctors HospitalTB OPW529TEIPParkland Health Center RBC4.52NOParkland Health Center WBC5.5 [facility] THYROID STIM HORMONEon 06-42-5704TNA Qn1.497 m[IU]/LNOMS Doctors HospitalALL THYROXINE (T4) FREEon 05-33-5318Qjgy T4 [Mass/Vol]1.24 ng/dL0.76 - 1.46 ng/dLSaint Luke's HospitalCLINISYNCNFreeman Neosho HospitalActivated partial thromboplastin time (aPTT) in platelet poor plasma by coagulation aon 10-25-2023 aPTT Coag (PPP) [Time]29.5 s22.3-36.2FCleveland Clinic South Pointe HospitalBasophils Auto (Bld) [#/Vol]on 87-70-8825Cwykmnggi (Bld) [#/Vol]0.1 10 3/uL0.0-0.1 [facility] DaytonBasophils/100 WBC Auto (Bld)on 10-25-2023 Basophils/100 WBC (Bld)1.1 %0.2-2.0[facility] Hospital DaytonCCF APTTon 59-64-8894tTUE Coag (Bld) [Time]29.5 sNOMS HealthcareEosinophils/100 WBC Auto (Bld)on 86-66-7084Wcjscrvrlfg/100 WBC (Bld)2.2 %0.9-7.0[facility] Hospital DaytonErythrocyte distribution width Auto (RBC) [Ratio]on 10-25-2023 Erythrocyte distribution width (RBC) [Ratio]14.5 %11.0-15.0[facility] DaytonGlucose mean value [Mass/volume] in Blood Estimated from glycated hemoglobinon 72-01-1456Blxbnrq glucose Estimated from glycated hemoglobin (Bld) [Mass/Vol]88 mg/dLAccess Hospital DaytonHematocrit Auto (Bld) [Volume fraction]on 79-73-6867Rsiqaoybpx (Bld) [Volume fraction]39.8 %36.0-48.0 [facility] DaytonHemoglobin [Mass/volume] in Bloodon 10-25-2023 Hemoglobin (Bld) [Mass/Vol]12.6 g/dL12.0-16.0[facility] INR in Platelet poor plasma by Coagulation assayon 43-32-4315CMO Coag (PPP) [Relative time]0.99 {INR}[facility] Hospital DaytonComment on above: DESIRED INR:2.0-3.0 CONDITIONS NOT LISTED BELOW2.5-3.5 FOR PROSTHETIC HEART VALVE REPLACEMENT2.5-3.5 RECURRENT THROMBOSISLaboratory - Chemistry and Chemistry - challengeon 13-26-7404Llmy T4 [Mass/Vol]1.24 ng/dL0.76-1.46Access Hospital DaytonTSH Qn1.497 m[IU]/L0.358-3.740Access Hospital DaytonLaboratory - Hematology and Cell countson 73-16-2817AcC5p (Bld) [Mass fraction]4.7 %4.5-6.2FCleveland Clinic South Pointe HospitalComment on above:ADA RECOMMENDED LIMIT 4.0 - 6.0ADA THERAPEUTIC TARGET < 7.0ACTION SUGGESTED> 7.0 Immature granulocytes/100 WBC (Bld)0.2 %0.0-0.5FC[facility] Leukocytes [#/volume] corrected for nucleated erythrocytes in Blood by Automated counon 18-29-5527KHQ corrected for nucl RBC Auto (Bld) [#/Vol]5.5 10 3/uL 4.0-11.0[facility] Hospital DaytonLymphocytes Auto (Bld) [#/Vol]on 84-68-9953Ffnoosvwcsd (Bld) [#/Vol]1.8 10 3/uL1.2-3.8[facility] Hospital DaytonLymphocytes/100 WBC Auto (Bld)on 76-39-6474Okhzqtxafhi/100 WBC (Bld)33.3 % 20.5-60.0[facility] HospitalH Auto (RBC) [Entitic mass]on 59-93-3047YJO (RBC) [Entitic mass]27.9 pg26.7-34.0[facility] HospitalHC Auto (RBC) [Mass/Vol]on 39-10-5942TNJN (RBC) [Mass/Vol]31.7 g/dL 29.9-35.2FCleveland Clinic South Pointe HospitalMCV Auto (RBC) [Entitic vol]on 34-94-8010FYN (RBC) [Entitic vol]88.1 fL81.0-99.0[facility] Hospital DaytonMonocytes Auto (Bld) [#/Vol]on 80-58-3033Ueaeqadqh (Bld) [#/Vol]0.3 10 3/uL0.3-0.8[facility] DaytonMonocytes/100 WBC Auto (Bld)on 98-32-6577Ubstjbiyg/100 WBC (Bld)5.4 %1.7-12.0[facility] Neutrophils Auto (Bld) [#/Vol]on 62-86-7544Udalzhhopfp (Bld) [#/Vol]3.2 10 3/uL 1.4-6.5FCleveland Clinic South Pointe HospitalNeutrophils/100 WBC Auto (Bld)on 42-81-0762Xqgfrhnerxk/100 WBC (Bld)57.8 %43.0-75.0[facility] Hospital DaytonNo Panel Informationon 16-15-8218ZCWTVVDCURMDB HealthcareCLINISYNCNOMS HealthcareEosinophils # (Auto)0.1 10 3/uL0.0-0.7FCleveland Clinic South Pointe HospitalHuman Chorionic Gonadotropin, Quant<1 mIU/mLAccess Hospital DaytonComment on above:5-50 0.2-1 LVKC45-577 1-2 HSPUK442-9,000 2-3 ZSVRL810- 10,000 3-4 WEEKS1,000-50,000 4-5 WEEKS10,000-100,000 5-6 WEEKS15,000-200,000 6-8 WEEKS10,000-100,000 2-3 MONTHSImmature Granulocyte # (Auto)0.01 10 3/uL 0.00-0.03Access Hospital DaytonPlatelet mean volume Auto (Bld) [Entitic vol]on 92-72-2681Siuvbxbg mean volume (Bld) [Entitic vol]9.7 fL9.5-13.5 [facility] DaytonPlatelets Auto (Bld) [#/Vol]on 10-25-2023 Platelets (Bld) [#/Vol]300 10 3/yR001-145HrisqlqevAccess Hospital Dayton Prothrombin time (PT)on 91-72-5322GW Coag (PPP) [Time]10.5 s9.0-11.6FCleveland Clinic South Pointe HospitalRBC Auto (Bld) [#/Vol]on 33-93-8559UGM (Bld) [#/Vol]4.52 10 6/uL4.20-5.40Ohio State East HospitalRMCOH PROTHROMBIN TIME INR W/O COUMon 55-46-8347VC Coag (PPP) [Time]10.5 sNROGER MILLS MEMORIAL [facility] HealthcareTBH INR0.99NOMS HealthcareComment on above:DESIRED INR: 2.0-3.0 CONDITIONS NOT LISTED BELOW 2.5-3.5 FOR PROSTHETIC HEART VALVE REPLACEMENT 2.5-3.5 RECURRENT THROMBOSIS TBH PREG QUANT HCGon 28-83-8339SUL QUANTITATIVE<1mIU/mLNOMS HealthcareComment on above:5-50 0.2-1 WEEK 50-500 1-2 WEEKS 100-5,000 2-3 WEEKS 500-10,000 3-4 WEEKS 1,000-50,000 4-5 WEEKS 10,000-100,000 5-6 WEEKS 15,000-200,000 6-8 WEEKS 10,000-100,000 2-3 MONTHS US PELVIS W/ TRANSVAGINALon 15-49-4619[address] [address] Ultrasound Report Signed Patient: KARUNA DUMONT MR#: [id number] : 1980 Acct:[id number] Age/Sex: 42 / F ADM Date: 10/25/23 Loc: NOMS Attending Dr: Sanjeev Lopez D.O. Ordering Physician: Sanjeev Lopez D.O. Date of Service: 10/25/23 Procedure(s): US pelvis w/ transvaginal Accession Number(s): [id number] cc: Johnathon Winter M.D.; Sanjeev Lopez D.O. [place] [address] Patient Name: KARUNA DUMONT MRN: [id number] date: 1980 Sex: F Assigned Patient Location: [facility] Current Patient Location: LAB Accession/Order Number: [id number] Exam Date: 10/25/2023 09:07 Report Date: 10/25/2023 11:10 At the request of: SANJEEV LOPEZ Procedure: US pelvis w/ transvaginal EXAMINATION: [...] No acute abnormality Electronically authenticated by: MONSERRAT SILVA Date: 10/25/2023 11:10 Dictated By: Monserrat Silva M.D. Signed By: 10/25/23 1116 DD/ 1110 TD/TT: Machine Zipper Trimmer:TBHRadiology, Radiologist, MD - 10/25/[address] [address] Ultrasound Report Signed Patient: KARUNA DUMONT MR#: [id number] : 1980 Acct:[id number] Age/Sex: 42 / F ADM Date: 10/25/23 Loc: NOMS Attending Dr: Sanjeev Lopez D.O. Ordering Physician: Sanjeev Lopez D.O. Date of Service: 10/25/23 Procedure(s): US pelvis w/ transvaginal Accession Number(s): [id number] cc: Johnathon Winter M.D.; Sanjeev Lopez D.O. The [place] [id number] Patient Name: KARUNA DUMONT MRN: [id number] date: 1980 Sex: F Assigned Patient Location: NOMS Current Patient Location: LAB Accession/Order Number: [id number] Exam Date: 10/25/2023 09:07 Report Date: 10/25/2023 11:10 At the request of: SANJEEV LOPEZ Procedure: US pelvis w/ transvaginal EXAMINATION: [...] No acute abnormality Electronically authenticated by: MONSERRAT SILVA Date: 10/25/2023 11:10 Dictated By: Monserrat Silva M.D. Signed By: 10/25/23 1113 DD/ 1110 TD/TT: Machine Zipper Trimmer: SCOOTER Doctors HospitalRadiology Study observation (narrative)SCOOTER HealthcareUS PELVIS W/ TRANSVAGINALOrdered By: Radiologist Radiology on 31-26-4037[facility] Work Phone: coding Summaryon 81-07-3766Xncion SummaryMLBase 64 BjqpfenaAOi7tZr+PGhlYWQ+NW1XTRCkW43iuIKmqF4jV2ZMGDaMTjnjIFDCSTcTSuDhyvTyZC9svJFd ZXJu [file] ZTo (more content not included)...[facility] HospitalED Clinical Summaryon 64-33-8932JY Clinical [facility] ? Urgent Care [address] [place], [place] [address] Clinical Summary PERSON INFORMATION Name: KARUNA DUMONT Age: 42 Years Sex: FEMALE : 1980 MRN: Acct#: Visit Reason: Skin problem; RASH ON ARMS Arrival: 08/23/2023 14:45:23 Discharge: 08/23/2023 15:20:00 LOS: 000 00:35 Check In: 08/23/2023 14:45:23 Checkout: 08/23/2023 15:20:00 Address: [address] [place] [address] PCP: Johnathon Winter MD PROVIDER INFORMATION Provider Role Assigned Unassigned Phuong Oseguera PSYCH SOCIAL WORKER Nurse 08/23/2023 14:46:59 Yissel Resendez PA-C ED [...] Follow-Up: With: Address: When: Johnathon Winter MD [facility] [place] [address] DIAGNOSIS: 1:Rash and nonspecific skin eruption; 2:Elevated blood pressure reading without diagnosis of hypertension Patient Understands: Comment:[facility] HospitalED Patient Summaryon 26-37-3887FX Patient Summary [facility] ? Urgent Care [address] [place] [address] PATIENT DISCHARGE INSTRUCTIONS Patient Information Name: KARUNA DUMONT Age: 42 Years Date of : 1980 Reason For Visit: Skin problem; RASH ON ARMS Arrival Time: 08/23/2023 14:45:23 Primary Care Physician: Johnathon Winter MD Attending Physician: Yissel Resendez PA-C Comment: Patient Education With: Address: When: [place] [address] [place] [id number] Rash, Adult A rash is a change in the color of your skin. A rash can also change the way your skin feels. Thereare many different conditions and factors that can [...] the rash from spreading. Pay attention to anychanges in your symptoms. Follow these instructions to help with your condition: Medicine Take or apply pebo-xfw-eappwnh and prescription medicines only as told by [...] a bath with: ? Epsom salts. Follow table games shift manager instructions on the packaging. You can get these at your local pharmacy or grocery store. ? Baking soda. Pour a small amount into the bath as told by your health care provider. ? Colloidal oatmeal. Follow table games shift manager instructions on the packaging. You can get this at your local pharmacy or grocery store. ? Try applying baking soda paste to your skin. Stir water into baking soda until it reaches a paste-like consistency. ? Try applying calamine lotion. This is an fxtk-chv-gsfgqnk lotion that helps to relieve itchiness. ? [...] rash from spreading. ? Take or apply nelo-kqx-rwweflf and prescription medicines only as told by your health care provider. ? Contact a health care provider if you have new or worsening symptoms. ? Keep all follow-up visits as told by yo (more content not included)...Normal [facility] CenterALL DHEA SULFATEon 54-82-0153DVFN-PFAKPSR467.0 ug/dL57.3 - 279.2 ug/dLNOSaint Alexius HospitalALL ESTRONE(E1)on 82-60-3871BQCDEQDAG68.9 pg/mL.[facility]ACHUSETTSS HealthcareComment on above:Adult Female Range Follicular phase 12.5 - 166.0 Ovulation phase 85.8 - 498.0 Luteal phase 43.8 - 211.0 Postmenopausal <6.0 - 54.7 1st trimester 215.0 - >4300.0 Skylar ECLIA methodology ALL PROGESTERONEon 61-58-5823NVDIQVGMLHRP0.1 ng/mL.[facility] HealthcareComment on above:Follicular phase 0.1 - 0.9 Luteal phase 1.8 - 23.9 Ovulation phase 0.1 - 12.0 First trimester 11.0 - 44.3 Second trimester 25.4 - 83.3 Third trimester 58.7 - 214.0 Postmenopausal 0.0 - 0.1 Performed at: - [facility] [id number] Script Supervisor: Theron Roblero PhD, Phone: [phone] ALL T3 REVERSEon 15-80-1855YAYDKYY T3, SERUM23.0 ng/dL9.2 - 24.1 ng/dLNOMS HealthcareComment on above:This test was developed and its performance characteristics determined by [employer]. It has not been cleared or approved by the Food and Drug Administration. Performed at: [address] [id number] Script Supervisor: Katelynn Macdonald MD, Phone: [phone] METRO SEX BINDING HORMONE (SHBG), TESTOSTERONE, FREE AND BIOAVAILABLEon 33-42-1447FGP HORM BINDING GLOB, SERUM49.1 nmol/L24.6 - 122.0 nmol/LNOMS HealthcareComment on above:Performed at: [address] [id number] Script Supervisor: Theron Roblero PhD, Phone: [phone] No Panel Informationon 35-09-1050XALHYMGFLPBFM HealthcareSRMCOH TESTOSTERONE FREE/TOT EQUILIBon 88-12-0159FJZZ TESTOSTERONE(DIRECT)0.6 pg/mL0.0 - 4.2 pg/mL NOMS HealthcareComment on above:Performed at: [address] [id number] Script Supervisor: Theron Roblero PhD, Phone: [phone] Performed at: [address] [id number] Script Supervisor: Katelynn Macdonald MD, Phone: [phone] Testosterone [Mass/Vol]22 ng/dL8 - 60 ng/dLNOSaint Alexius HospitalTB THYROID ANTIBODIES on 08-72-1239LHDECYWEXJTJO ANTIBODY<1.0NOMS HealthcareComment on above: Thyroglobulin Antibody measured by Sarah Felix Methodology Performed at: [address] [id number] Script Supervisor: Theron Roblero PhD, Phone: [phone] THYROID PEROXIDASE (TPO) SS07JCZX HealthcareUH SEROTONINon 03-07-7268HLKMTHJLX, IRGAW120 ng/mL31 - 207 ng/mLNOMS HealthcareComment on above:This test was developed and its performance characteristics determined by [employer]. It has not been cleared or approved by the Food and Drug Administration. Performed at: [facility] [id number] Script Supervisor: Katelynn Macdonald MD, Phone: [phone] MM POST BIOPSY LTon 77-97-7939Yzd[address] [address] Mammography Report Signed Patient: KARUNA DUMONT MR#: [id number] : 1980 Acct:[id number] Age/Sex: 42 / F ADM Date: 05/23/23 Loc: MAMMO Attending Dr: Sanjeev Lopez D.O. Ordering Physician: Sanjeev Lopez D.O. Results: Date of Service: 05/23/23 Follow Up: Procedure(s): MM post biopsy LT Accession Number(s): [id number] cc: Johnathon Winter M.D.; Sanjeev Lopez D.O. Patient Name: KARUNA DUMONT MR#: [id number] : 1980 Exam Date: 05/23/2023 Ordering Doctor: [...] M.D. Signed By: 06/09/23902 DD/ 1 TD/TT: Machine Zipper Trimmer:TBHRadiology, Radiologist, - 06/09/2023 [place] [address] Mammography Report Signed Patient: KARUNA DUMONT MR#: [id number] : 1980 Acct:[id number] Age/Sex: 42 / F ADM Date: 05/23/23 Loc: MAMMO Attending Dr: Sanjeev Lopez D.O. Ordering Physician: Sanjeev Lopez D.O. Results: Date of Service: 05/23/23 Follow Up: Procedure(s): MM post biopsy LT Accession Number(s): [id number] cc: Johnathon Winter M.D.; Sanjeev Lopez D.O. Patient Name: KARUNA DUMONT MR#: [id number] : 1980 Exam Date: 05/23/2023 Ordering Doctor: [...] M.D. Signed By: 06/09/23902 DD/ 1 TD/TT: Machine Zipper Trimmer: SCOOTER Doctors HospitalRadiology Study observation (narrative)[facility] HospitalMM POST BIOPSY LTOrdered By: Radiologist Radiology on 25-77-1721TQBL [employer] Work Phone: mm STEREOTACTIC LOC LTon 76-16-4085[place], [place] [address] Mammography Report Signed Patient: KARUNA DUMONT MR#: [id number] : 1980 Acct:[id number] Age/Sex: 42 / F ADM Date: 05/23/23 Loc: MAMMO Attending Dr: Sanjeev Lopez D.O. Ordering Physician: Sanjeev Lopez D.O. Results: Date of Service: 05/23/23 Follow Up: Procedure(s): MM stereotactic loc LT Accession Number(s): [id number] cc: Johnathon Winter M.D.; Sanjeev Lopez D.O. Patient Name: KARUNA DUMONT MR#: [id number] : 1980 Exam Date: 05/23/2023 Ordering Doctor: [...] M.D. Signed By: 06/09/23901 DD/ 0 TD/TT: Machine Zipper Trimmer:TBHRadiology, Radiologist, MD - 06/09/2023 [place] [address] Mammography Report Signed Patient: KARUNA DUMONT MR#: [id number] : 1980 Acct:[id number] Age/Sex: 42 / F ADM Date: 05/23/23 Loc: MAMMO Attending Dr: Sanjeev Lopez D.O. Ordering Physician: Sanjeev Lopez D.O. Results: Date of Service: 05/23/23 Follow Up: Procedure(s): MM stereotactic loc LT Accession Number(s): [id number] cc: Johnathon Winter M.D.; Sanjeev Lopez D.O. Patient Name: KARUNA DUMONT MR#: [id number] : 1980 Exam Date: 05/23/2023 Ordering Doctor: DR Sanjeev Jessica . This report includes an Addendum and [...] M.D. Signed By: 06/09/23901 DD/ 0 TD/TT: Machine Zipper Trimmer: SCOOTER HealthcareRadiology Study observation (narrative)[facility] STEREOTACTIC LOC LTOrdered By: Radiologist Radiology on 27-88-7558CEBW [employer] Work Phone: Lop 09-70-5892PUyrcxofl: [id number] Received: 05/24/231322 Status: NATHNA Guzmán Num: [id number] Spec Type: Surgical Subm Dr: Tee Peterson MD Tissues: A BREAST CORE NO CALCS (LT BREAST) Procedures: HE/4, Gross/Micro L4, AE1-AE3/2 Age/ Patient Sex Location Account Attending Physician JuliaKaruna Garcia 42/F LABELL [id number] Tee Peterson MD SPEC NUM: [id number] RECD: 05/24/23 STATUS: NATHAN REQ NUM: [id number] GENEVA: 05/23/23 DR: Tee Peterson MD ENTERED: 05/24/23 MOSAIC [...] Time: 0.10 Formalin Fixation Time: 28.50 Specimen: [id number] Received: 05/24/23 Status: NATHAN Req Num: [id number] Spec Type: Surgical Subm Dr: Tee Peterson MD Tissues: A BREAST CORE NO CALCS (LT BREAST) Procedures: HE/4, Gross/Micro L4, AE1-AE3/2 Patient: Karuna Dumotn Radha [id number] (Continued) Specimen: [id number] Received: 05/24/23 (Continued) Signed (signature on file) Tootie Jordan MD 05/31/232105 Specimen: [id number] Received: 05/24/23 Status: NATHAN Guzmán Num: [id number] Spec Type: Surgical Subm Dr: Tee Peterson MD Tissues: A BREAST CORE NO CALCS (LT BREAST) Procedures: MELANIEShanique, Gross/Micro L4, AE1-AE3/2 Patient: Karuna Dumont [id number] (Continued) Specimen: [id number] Received: 05/24/23 (Continued) CPT Codes 87633 Specimen: [id number] Received: 05/24/23 Status: NATHAN Guzmán Num: [id number] Spec Type: Surgical Subm Dr: Tee Peterson MD Tissues: A BREAST CORE NO CALCS (LT BREAST) Procedures: HE/4, Gross/Micro L4, AE1-AE3/2 Patient: Karuna Dumont [id number] (Continued) Signed (signature on file) Tootie Jordan MD 05/31/[address] [place] [address] Physician Group POST BIOPSY LTon 05-23-2023 [place] [address] Mammography Report Signed Patient: KARUNA DUMONT MR#: [id number] : 1980 Acct:[id number] Age/Sex: 42 / F ADM Date: 05/23/23 Loc: MAMMO Attending Dr: Sanjeev Lopez D.O. Ordering Physician: Sanjeev Lopez D.O. Results: Date of Service: 05/23/23 Follow Up: Procedure(s): MM post biopsy LT Accession Number(s): [id number] cc: Johnathon Winter M.D.; Sanjeev Lopez D.O. Patient Name: KARUNA DUMONT MR#: [id number] : 1980 Exam Date: 05/23/2023 Ordering Doctor: [...] By: Tee Peterson M.D. Signed By: 05/23/23 143 DD/ 37 TD/TT: Machine Zipper Trimmer:TBHRadiology, Radiologist, - 05/23/2023 [place] [address] Mammography Report Signed Patient: KARUNA DUMONT MR#: [id number] : 1980 Acct:[id number] Age/Sex: 42 / F ADM Date: 05/23/23 Loc: MAMMO Attending Dr: Sanjeev Lopez D.O. Ordering Physician: Sanjeev Lopez D.O. Results: Date of Service: 05/23/23 Follow Up: Procedure(s): MM post biopsy LT Accession Number(s): [id number] cc: Johnathon Winter M.D.; Sanjeev Lopez D.O. Patient Name: KARUNA DUMONT MR#: [id number] : 1980 Exam Date: 05/23/2023 Ordering Doctor: [...] Dictated By: Tee Peterson M.D. Signed By: 05/23/231438 DD/ 1438 TD/TT: Machine Zipper Trimmer: SCOOTER RonquilloRadiology Study observation (narrative)PATRICKEllett Memorial HospitalMM POST BIOPSY LTOrdered By: Radiologist Radiology on 25-65-9231YDDRSaint Luke's Hospital Work Phone: mm STEREOTACTIC LOC LTon 36-34-8970Uxw[address] [address] Mammography Report Signed Patient: KARUNA DUMONT MR#: [id number] : 1980 Acct:[id number] Age/Sex: 42 / F ADM Date: 05/23/23 Loc: MAMMO Attending Dr: Snajeev Lopez D.O. Ordering Physician: Sanjeev Lopez D.O. Results: Date of Service: 05/23/23 Follow Up: Procedure(s): MM stereotactic loc LT Accession Number(s): [id number] cc: Johnathon Winter M.D.; Sanjeev Lopez D.O. Patient Name: KARUNA DUMONT MR#: [id number] : 1980 Exam Date: 05/23/2023 Ordering Doctor: [...] Signed By: 05/23/23 1438 DD/ 1437 TD/TT: Machine Zipper Trimmer:TBHRadiology, Radiologist, - 05/24/2023 [place] [address] Mammography Report Signed Patient: KARUNA DUMONT MR#: [id number] : 1980 Acct:[id number] Age/Sex: 42 / F ADM Date: 05/23/23 Loc: MAMMO Attending Dr: Sanjeev Lopez D.O. Ordering Physician: Sanjeev Lopez D.O. Results: Date of Service: 05/23/23 Follow Up: Procedure(s): MM stereotactic loc LT Accession Number(s): [id number] cc: Johnathon Winter M.D.; Sanjeev Lopez D.O. Patient Name: KARUNA DUMONT MR#: [id number] : 1980 Exam Date: 05/23/2023 Ordering Doctor: [...] Dictated By: Tee Peterson M.D. Signed By: 05/23/231437 DD/ 36 TD/TT: Machine Zipper Trimmer: [facility] HospitalRadiology Study observation (narrative)[facility]'s HospitalMM STEREOTACTIC LOC LTOrdered By: Radiologist Radiology on 44-27-1371[facility] Work Phone: all C-PEPTIDEon 91-35-2912Y-PEPTIDE, SERUM2.8 ng/mL1.1 - 4.4 ng/mLNOMS HealthcareComment on above:C-Peptide reference interval is for fasting patients. Performed at: [facility] [id number] Script Supervisor: Theron Roblero PhD, Phone: [phone] No Panel Informationon [id number] HealthcareTBH ESTRONEon 99-41-8905LPLXZTN, SERUM65 pg/mL27 - 231 pg/mLNOMS HealthcareComment on above: Range Adult (Premenopausal) 27 - 231 Menstrual Cycle (1-10 days) 19 - 149 Menstrual Cycle (11-20 days) 32 - 176 Menstrual Cycle (21-30 days) 37 - 200 Performed at: [address] [id number] Script Supervisor: Katelynn Macdonald MD, Phone: [phone] [facility] INSULINon 91-87-1202NDTXAGL5.0NOMS HealthcareComment on above:Performed at: [facility] [id number] Script Supervisor: Theron Roblero PhD, Phone: [phone] CORTISOL, FREE DIALYSIS, LCMSon 36-77-3308RUOHTYDS, FREE DIALYSIS, LCMS0.787 ug/dL.[facility] HealthcareComment on above:These tests were developed and their performance characteristics determined by [facility]. They have not been cleared or approved by the Food and Drug Administration. Reference Range: 8 AM 0.10 - 1.20 4 PM 0.042 - 0.872 Performed at: [employer] [facility] [address] [place] [address] [id number] Script Supervisor: Kal Archibald MD, Phone: [phone] [facility] DIAGNOSTIC MAMMO UNILAT LTon 02-12-2944[place]zt[place], [place] [address] Mammography Report Signed Patient: KARUNA DUMONT MR#: [id number] : 1980 Acct:[id number] Age/Sex: 42 / F ADM Date: 05/10/23 Loc: MAMMO Attending Dr: Sanjeev Lopez D.O. Ordering Physician: Sanjeev Lopez D.O. Results: Date of Service: 05/10/23 Follow Up: Procedure(s): MM diagnostic mammo unilat LT Accession Number(s): [id number] cc: Johnathon Winter M.D.; Sanjeev Lopez D.O. Patient Name: KARUNA DUMONT MR#: [id number] : 1980 Exam Date: 05/10/2023 Ordering Doctor: [...] stomach cancer at age 67. LOCATION: [facility] BREAST COMPOSITION: Scattered areas fibroglandular [...] PALPABLE LUMP SHOULD BE BIOPSIED. Dictated by: Monserrat Silva MD on 05/10/2023 at 08:33 Approved by: Monserrat Silva MD on 05/10/2023 at 08:42 Dictated By: Monserrat Silva M.D. Signed By: 05/15/23 1313 DD/ 0842 TD/TT: Machine Zipper Trimmer:TBHRadiology, Radiologist, - 06/07/2023 [place] [address] Mammography Report Signed Patient: KARUNA DUMONT MR#: [id number] : 1980 Acct:[id number] Age/Sex: 42 / F ADM Date: 05/10/23 Loc: MAMMO Attending Dr: Sanjeev Lopez D.O. Ordering Physician: Sanjeev Lopez D.O. Results: Date of Service: 05/10/23 Follow Up: Procedure(s): MM diagnostic mammo unilat LT Accession Number(s): [id number] cc: Johnathon Winter M.D.; Sanjeev Lopez D.O. Patient Name: KARUNA DUMONT MR#: [id number] : 1980 Exam Date: 05/10/2023 Ordering Doctor: [...] stomach cancer at age 67. LOCATION: [facility] BREAST COMPOSITION: Scattered areas fibroglandular [...] PALPABLE LUMP SHOULD BE BIOPSIED. Dictated by: Monserrat Silva MD on 05/10/2023 at 08:33 Approved by: Monserrat Silva MD on 05/10/2023 at 08:42 Dictated By: Monserrat Silva M.D. Signed By: 05/15/23 1313 DD/ 0842 TD/TT: Machine Zipper Trimmer: SCOOTER Ronquillo Panel InformationOrdered By: Radiologist Radiology on 51-30-0111VLUY [employer] Work Phone: US BREAST LT LIMITEDon 69-78-0743Wjm[place], [place] [address] Ultrasound Report Signed Patient: KARUNA DUMONT MR#: [id number] : 1980 Acct:[id number] Age/Sex: 42 / F ADM Date: 05/10/23 Loc: MAMMO Attending Dr: Sanjeev Lopez D.O. Ordering Physician: Sanjeev Lopez D.O. Date of Service: 05/10/23 Procedure(s): US breast LT limited Accession Number(s): [id number] cc: Johnathon Winter M.D.; Sanjeev Lopez D.O. Patient Name: KARUNA DUMONT MR#: [id number] : 1980 Exam Date: 05/10/2023 Ordering Doctor: [...] stomach cancer at age 67. LOCATION: [facility] BREAST COMPOSITION: Scattered areas fibroglandular [...] PALPABLE LUMP SHOULD BE BIOPSIED. Dictated by: Monserrat Silva MD on 05/10/2023 at 08:33 Approved by: Monserrat Silva MD on 05/10/2023 at 08:42 Dictated By: Monserrat Silva M.D. Signed By: 05/15/23 1313 DD/ 0842 TD/TT: Machine Zipper Trimmer:TBHRadiology, Radiologist, - 05/15/2023 [place] [address] Ultrasound Report Signed Patient: KARUNA DUMONT MR#: [id number] : 1980 Acct:[id number] Age/Sex: 42 / F ADM Date: 05/10/23 Loc: MAMMO Attending Dr: Sanjeev Lopez D.O. Ordering Physician: Sanjeev Lopez D.O. Date of Service: 05/10/23 Procedure(s): US breast LT limited Accession Number(s): [id number] cc: Johnathon Winter M.D.; Sanjeev Lopez D.O. Patient Name: KARUNA DUMONT MR#: [id number] : 1980 Exam Date: 05/10/2023 Ordering Doctor: [...] stomach cancer at age 67. LOCATION: [facility] BREAST COMPOSITION: Scattered areas fibroglandular [...] PALPABLE LUMP SHOULD BE BIOPSIED. Dictated by: Monserrat Silva MD on 05/10/2023 at 08:33 Approved by: Monserrat Silva MD on 05/10/2023 at 08:42 Dictated By: Monserrat Silva M.D. Signed By: 05/15/23 1313 DD/ 0842 TD/TT: Machine Zipper Trimmer: SCOOTER HealthcareALL T3 FREEon 25-08-5691Sktb T3 [Mass/Vol]2.67 pg/mL2.18 - 3.98 pg/mLNOMS HealthcareALL THYROID STIM HORMONEon 74-60-0134IID Qn1.735 m[IU]/LNOMS HealthcareALL THYROXINE (T4)on 95-73-6170I7 [Mass/Vol]9.00 ug/dL4.80 - 13.90 ug/dLNOMS HealthcareALL THYROXINE (T4) FREEon 42-71-1481Xvuj T4 [Mass/Vol]1.29 ng/dL0.76 - 1.46 ng/dLNOMS HealthcareCCF FERRITINon 44-68-4423Wdlojqus [Mass/Vol]40.0 ng/mL8.0 - 252.0 ng/mLNOMS HealthcareFree testosterone measurement by LC-MS/MSon 84-74-8684Pzbzytpdfcir Free [Mass/Vol]0.6 pg/mL0.0-4.2 Access Hospital DaytonComment on above:Performed at: CB - [facility] [address] [place], [place] [id number] Director: Theron Roblero PhD, Phone: [phone] at: - [facility] [address] [id number] Director: Katelynn Macdonald MD, Phone: [phone] HEMOGLOBIN A1Con 78-48-4491Yxbgssp [Mass/Vol]94 mg/dLNOMS TvziatgjylWxE6o (Bld) [Mass fraction]4.9 %4.5 - 6.2 %NOMS HealthcareComment on above:ADA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 Supervisor: SARAN Crabtreeomprehensive Metabolic Panel w/ Reflex to MGon [id number] [Mass/Vol]4.3 g/dL3.5 - 5.2 g/dLBON [facility] Albumin/Globulin [Mass ratio]1.4 {ratio}1 - 2.5B[facility] SOUTHALP (Bld) [Catalytic activity/Vol]105 U/LHigh35 - 104 U/LBON [facility] SOUTHALT [Catalytic activity/Vol]28 U/L5 - 33 U/LBON [facility] SOUTHAnion gap [Moles/Vol]13 mmol/L9 - 17 mmol/LBON [facility]ALTHAST [Catalytic activity/Vol]26 U/LNINF - 32 U/LBON [facility] SOUTHBilirubin [Mass/Vol]0.3 mg/dL0.3 - 1.2 mg/dLBON [facility] SOUTHCalcium [Mass/Vol]8.7 mg/dL8.6 - 10.4 mg/dLBON [facility] S[facility]THChloride [Moles/Vol]104 mmol/L98 - 107 mmol/L [facility] S[facility]THCO2 [Moles/Vol]21 mmol/L20 - 31 mmol/LBON [facility] SOUTHCreatinine [Mass/Vol]0.6 mg/dL0.5 - 0.9 mg/dLBON [facility]CTOLEDO HOSPITALGFR >6060 - PINF mL/minBON [facility] S[facility]THGFR Non->6060 - PINF mL/minWELLMONT HEALTH SYSTEMGFR/1.73 sq M.predicted MDRD (S/P/Bld) [Vol rate/Area][facility] on above:Average GFR for 30-39 years old: 107 mL/min/1.73sq m Chronic Kidney Disease: <60 mL/min/1.73sq m Kidney failure: <15 mL/min/1.73sq m eGFR calculated using average adult body mass. Additional eGFR calculator available at: http://www.Pervacio/multiple_crcl_2011.htm Glucose [Mass/Vol]105 mg/pUVcpf98 - 99 mg/dLBON [facility] Interpretation and review of laboratory resultsAbnormalWELLMONT HEALTH SYSTEM Potassium [Moles/Vol]3.5 mmol/LLow3.7 - 5.3 mmol/LBON [facility] Protein [Mass/Vol]7.4 g/dL6.4 - 8.3 g/dLBON [facility] SOUTHSodium [Moles/Vol]138 mmol/L135 - 144 mmol/LBON [facility] SOUTHUrea nitrogen (BldV) [Mass/Vol]12 mg/dL6 - 20 mg/dLBON [facility] SOUTHBON [facility] SOUTHHCG Qualitative, Serumon [id number] QualNegativeNEGATIVEWELLMONT HEALTH SYSTEMComment on above:Specimens with hCG levels near the threshold of the test (25 mIU/mL) may give a negative or indeterminate result. In such cases, another test should be performed with a new specimen in 48-72 hours. If early is suspected clinically in this setting, correlation with quantitative serum b-hCG level is suggested. [employer] has confirmed the use of plasma for this test. This has not been cleared or approved by the U.S. Food and Drug Administration. The FDA has determined that such clearance is not necessary. [facility] SOUTHHCG Screen, Bloodon [id number] Screen, BloodNegative NormalNEGKing'S Daughters Medical Center OhioComment on above:Result Comment: Specimens with hCG levels near the threshold of the test (25 mIU/mL) may give a negative or indeterminate result. In such cases, another test should be performed with a new specimen in 48-72 hours. If early is suspected clinically in this setting, correlation with quantitative serum b-hCG level is suggested. [employer] [facility] has confirmed the use of plasma for this test. This has not been cleared or approved by the U.S. Food and Drug Administration. The FDA has determined that such clearance is not necessary.Performed By: #### HCG, LIP, MG, CDP, CMPX #### [place] [id number] Script Supervisor: Estevan Corcoran MDLipaseon [id number] [Catalytic activity/Vol]20 U/TGwnzza38-96Btxzr [facility] HospitalComment on above: Performed By: #### HCG, LIP, MG, CDP, CMPX #### [place] [id number] Script Supervisor: Estevan Corcoran MDLipase [Catalytic activity/Vol]20 U/L13 - 60 U/LBON [facility]THB[facility] SOUTHMagnesiumon 01-03-2022 Magnesium [Mass/Vol]2.1 mg/dLNormal1.6-2.6[facility] Comment on above:Performed By: #### HCG, LIP, MG, CDP, CMPX #### [place] [id number] Script Supervisor: Jus Crabtreegnesium [Mass/Vol]2.1 mg/dL1.6 - 2.6 mg/dLBON SIOUXLAND SURGERY CENTERMicroscopic Urinalysison 01-03-2022 Bacteria, UAMANYAbnormalNoneBON [facility] SOUTHEpithelial Cells UATOO NUMEROUS TO POPL[facility] SPRINGS HOSPITALInterpretation and review of laboratory resultsAbnormInova Fairfax HospitalOther Observations UAUtilizing a urinalysis as the only screening method to exclude a potential uropathogen can be unreliable in many patient populations. Rapid screening tests are less sensitive than culture and if UTI is a clinical possibility, culture should be considered despite a negative urinalysis.AbnormalNOT REQ.BON [facility] SOUTHRBC, UA2 TO 5BON [facility]OS[facility] SOUTHWBC, UA2 TO 5BON [facility]ARE CENTERUA w/Reflex Cultureon [id number], SemiQt,Ur NegativeNormalNEGMercy Eman[facility] Health/Foothill Presbyterian HospitalComment on above:Performed By: #### UAX, UMICAO ####[place] [address] Lab Director: Marie Crabtree UrineLARGEAbnormalNEGKing'S Daughters Medical Center OhioComment on above:Performed By: #### UAX, UMICAO ####[address] [address] Lab Director: Shaan Crabtreerity (U)CloudyAbnormalCLEARMercy Emanate Health/Foothill Presbyterian HospitalComment on above:Result Comment: FOUL ODORPerformed By: #### UAX, UMICAO ####[address] [id number] Lab Director: Wesly Crabtree (U)YellowNormalYELMerLakewood Regional Medical Center Comment on above:Performed By: #### UAX, UMICAO ####[address] [id number] Lab Director: Estevan Corcoran MDGlucose Ql (U)NegativeNormalNEGMerLakewood Regional Medical CenterComment on above:Performed By: #### UAX, UMICAO ####[address] [address] Lab Director: Estevan Corcoran MDKetones Ql (U)NegativeNormalNEGKing'S Daughters Medical Center OhioComment on above:Performed By: #### UAX, UMICAO ####[address] [phone] Director: Estevan Corcoran MDLeukocyte esterase Test strip Ql (U)NegativeNormal NEGKing'S Daughters Medical Center OhioComment on above:Performed By: #### KEVIN, UMICAO ####[address] [address] Lab Director: Estevan Corcoran MDNitrite,UrNegativeNormal NEGKing'S Daughters Medical Center OhioComment on above:Performed By: #### KEVIN UMICAO ####[address] [address] Lab Director: AMY CrabtreeH,Ur6.1Lmibiw4.0-8.0MerLakewood Regional Medical CenterComment on above:Performed By: #### UAStephanie, UMICAO ####[address] [address] Lab Director: AMY Crabtreerotein Ql (U)NegativeNormal NEGKing'S Daughters Medical Center OhioComment on above:Performed By: #### UAX, UMICAO ####[address] [address] Lab Director: Estevan Nilo, MDSpec. [place],Ur1.108High 1.005-1.030MerLakewood Regional Medical CenterComment on above:Result Comment: POST IV CONTRASTPerformed By: #### UAX, GEORGES ####[address] [id number] lab Director: Estevan Corcoran MDUrobilinogen,UrNormalNormalNORMKing'S Daughters Medical Center OhioComment on above:Performed By: #### UAX, GEORGES ####[address] [id number] lab Director: Estevan Corcoran MDUrinalysis with Reflex to Cultureon 01-03-2022 Bilirubin UrineNegativeNEGATIVEBON SECOU[facility]ENTERY HEALTHColor, UAYellowYellowBON SECOURS MERCY HEALTHGlucose, UrNegativeNEGATIVEBON [facility] Interpretation and review of laboratory resultsAbnormalBON [facility] Ketones Ql (U)NegativeNEGATIVEBON SECOURS MERCY HEALTHLeukocyte esterase Test strip Ql (U)NegativeNEGATIVEBON SECOURS MERCY HEALTHNitrite, UrineNegative NEGATIVEBON SECOURS MERCY HEALTHpH, UA6.05 - 8B[facility] HEALTHProtein, UANegativeNEGATIVEBON SECOURS MERCY HEALTHSpecific [place], UA1.233Lenw7.005 - 1.03B[facility] MERCY HEALTHComment on above:POST IV CONTRASTTurbidity UACloudy AbnormalClearBON SECOU[facility]ENTERY HEALTHComment on above:FOUL ODORUrine HgbLARGE AbnormalNEGATIVEBON SECOURS MERCY HEALTHUrobilinogen, UrineNormalNormalBON SECOU[facility] MERCY HEALTHBON [facility] MERCY HEALTHUrinalysis,Microon 01-03-2022 BacteriaMANYAbnormalNONEMeSierra View District HospitalComment on above: Performed By: #### UAX, GEORGES ####[address] [address] Lab Director: Estevan Corcoran MD Epithelial cells LM Ql (Urine sed)TOO NUMEROUS TO COUNTNormal0-5[facility] HospitalComment on above:Performed By: #### UAX, UMICAO ####[address] [phone] Director: Estevan Corcoran MDOther ObservationsUtilizing a urinalysis as the only screening method to exclude a potentialAbnormalNREQMercy [facility] Presbyterian HospitalComment on above:Result Comment: uropathogen can be unreliable in many patient populations. Rapid screening tests are less sensitive than culture and if UTI is a clinical possibility, culture should be considered despite a negative urinalysis.Performed By: #### UAX, UMICAO ####[address] [id number] Lab Director: Estevan Corcoran MDUrine RBC's2 TO 6Podcln0-7Lnbhe [facility] Presbyterian HospitalComment on above:Performed By: #### UAX, UMICAO ####[address] [id number] Lab Director: Estevan Corcoran MDUrine WBC's2 TO 3Byofvw3-7UnjfjKing'S Daughters Medical Center OhioComment on above:Performed By: #### UAX, UMICAO ####[address] [address] Lab Director: JONI Crabtree LUMBAR SPINE WO CONTRASTon 27-98-0660Ogcalphvbvzl disc disease at L4-L5 and L5-S1. At L4-L5, there is a broad-based left paracentral left foraminal disc protrusion/herniation. At L5-S1, there is a partially calcified left paracentral disc herniation with slight inferior extension. The left-sided disc disease is of uncertain etiology in this patient with history of right leg pain. Follow-up MRI may be helpful. [facility] RIS CONSOLIDATEDEXAMINATION: CT OF THE LUMBAR SPINE WITHOUT CONTRAST [...] SOFT TISSUES/RETROPERITONEUM: No paraspinal mass is seen. [facility] HospitalBoyd delgado MD - 08/19/2021 EXAMINATION: CT OF THE [...] leg pain. Follow-up MRI may be helpful. [employer] Phone: radiology Study observation (narrative)[employer] Phone: cT LUMBAR SPINE WO CONTRASTOrdered By: Boyd Beatty on 04-04-0775TbeuoR[employer] Phone: Vital Signs Date TimeVital SignValuePerforming CfhhwkjszIxpfgbaw31-98-9300 09:00-0400Body zcbvuq081.1 Deannthosylvester Rusher DPM Work Phone: [employer] Wdqpbsgbxg27-32-6640 09:00-0400Body mass index (BMI) [Ratio]31.62 kg/c2Pnfyeuc Rusher DPM Work Phone: R17Vpqycazvtj60-95-6542 09:00-0400Body .18 kgAnthony Rusher DPM Work Phone: [facility] HospitalBrmrbahnpx34-68-6081 08:55-0400Body uqfelf910.1 cmAnthony Rusher DPM Work Phone: [employer] Ysmxxrglwi89-60-8417 08:55-0400Body mass index (BMI) [Ratio]31.62 kg/s5Bfvplpv Rusher DPM Work Phone: [phone]07-29-2025 08:55-0400Body kxywju35.18 kgAnthony Rusher DPM Work Phone: [phone] [place], [place] 0850106-17-2025 09:57-0400Body eymuze728.1 cmAnthony Rusher DPM Work Phone: [phone] [place], [place] 0[address]0106-17-2025 09:57-0400Body mass index (BMI) [Ratio]31.62 kg/v2Fnxyogp Rusher DPM Work Phone: [phone] [place], [place] 0850106-17-2025 09:57-0400Body swzqol98.18 kgAnthony Rusher DPM Work Phone: [phone] [place], [place] 0[address]0106-04-2025 08:26-0400Body ewaqsr744.1 cmAnthony Rusher DPM Work Phone: [phone] [place], [place] [address]06-04-2025 08:26-0400Body mass index (BMI) [Ratio]31.62 kg/k4Jqvkaiq Rusher DPM Work Phone: [phone] [place], [place] 0850106-04-2025 08:26-0400Body gcweak74.18 kgAnthony Rusher DPM Work Phone: [phone] [place], [place] 0850105-21-2025 13:09-0400Body lvpugk614.1 cmAnthony Rusher DPM Work Phone: [phone] [place], [place] 0850105-21-2025 13:09-0400Body mass index (BMI) [Ratio]31.62 kg/d2Hgyzjyz Rusher DPM Work Phone: [phone])[address] [place], [place] 0850105-21-2025 13:09-0400Body vwidjq63.18 kgAnthony Rusher DPM Work Phone: [phone] [place], [place] [address]04-30-2025 13:47-0400Body xlretx840.[address]04-30-2025 13:47-0400Body mass index (BMI) [Ratio] 31.62 kg/m[address]04-30-2025 13:47-0400Body uvtegg93.[address]04-30-2025 12:55-0400Body qyghvz881.1 cmAnthony Rusher DPM Work Phone: [phone] [place], [place] [address]Emqirirrtk32-38-7038 12:55-0400Body mass index (BMI) [Ratio]31.62 kg/b7Ppthaku Rusher DPM Work Phone: [phone] [place], [place] [address]Vkoydwkioe62-36-4258 12:55-0400Body .18 kgAnthony Rusher DPM Work Phone: [phone]04-28-2025 11:17-0400Body cphsuq154.64 cmAccess [facility]04-28-2025 11:17-0400Body mass index (BMI) [Ratio]32.9 kg/u9WtlhrjalcAccess Hospital [place]04-28-2025 11:17-0400Body skecca15.53 kgAccess Hospital [place]04-28-2025 11:17-0400Diastolic blood pligiphm59 mm[Hg][facility]04-28-2025 11:17-0400 Heart rate73 /minAccess Hospital [place]04-28-2025 11:17-0400Systolic blood wxkzglzy808 mm[Hg][facility]04-21-2025 14:12-0400 Body mass index (BMI) [Ratio]34.11 kg/d1Mojlt Jessica DO Work Phone: [facility] HospitalIaprhiyhoq53-79-2279 14:12-0400Body ucutag28.99 kgCorey Jessica DO Work Phone: [phone] [place], [place] [address]Ngyajuvdcp23-22-0585 14:12-0400Diastolic blood zqovnhzg87 mm[Hg]Sanjeev Jessica DO Work Phone: [place] [address]Dsglpcedsl16-44-1424 14:12-0400Systolic blood mm[Hg]Sanjeev Jessica DO Work Phone: [facility] HospitalJghaenwopt97-98-8039 09:09-0400Body .1 cmAnthony Rusher DPM Work Phone: [address] [place], [place] [address]Ffaafntgeh16-77-2969 09:09-0400Body mass index (BMI) [Ratio]31.62 kg/p6GibfqukGeorgi Carreon DPM Work Phone: [facility] HospitalQctpfczhgt59-69-8633 09:09-0400Body mfaepd33.18 kgGeorgi Carreon DPM Work Phone: [facility] HospitalPigwaihrta91-29-0556 11:00-0500Body yiuszy248.64 cmAccess [facility]02-14-2025 11:00-0500Body mass index (BMI) [Ratio]31.1 kg/p5GpbzscrbjAccess Hospital [facility]02-14-2025 11:00-0500Body ovzvzh69.54 kgAccess Hospital [place]02-14-2025 11:00-0500Diastolic blood ednkltbe24 mm[Hg][facility]02-14-2025 11:00-0500 Heart etsx431 /[facility]02-14-2025 11:00-0500Systolic blood osvitpfg866 mm[Hg][facility]01-09-2025 09:59-0500 Body lrazsj891.64 cmAccess [facility]01-09-2025 09:59-0500Body mass index (BMI) [Ratio]31.8 kg/e2QjwnmhuqmAccess Hospital [facility]01-09-2025 09:59-0500Body klejag12.35 kgAccess Hospital [facility]01-09-2025 09:59-0500Diastolic blood rbuccstw33 mm[Hg][facility] 04-11-2024 09:59-0500Heart rate86 /[facility] 04-11-2024 09:59-0500Systolic blood opkexuki380 mm[Hg][facility]11-25-2024 09:54-0500Body mass index (BMI) [Ratio]33.12 kg/s0Oojef Jessica DO Work Phone: [facility] HospitalJwqfvvlvxo25-69-9612 09:54-0500Body ldbmna91.27 kgCorey Jessica DO Work Phone: noSaint [facility] HospitalWswmuqbwyl69-41-9231 09:54-0500Diastolic blood ccpgiycm55 mm[Hg]Sanjeev Jessica DO Work Phone: [facility] HospitalKmdnimwnxv24-90-5266 09:54-0500Systolic blood mgczdegl019 mm[Hg]Sanjeev Jessica DO Work Phone: 1(588)[facility] HospitalPlalyhktrh70-10-2884 14:03-0400Body aphaim801.[address]10-17-2024 14:03-0400Body mass index (BMI) [Ratio]31.45 kg/y0Grvnd[address]10-17-2024 14:03-0400Body weight 85.[address]10-02-2024 10:48-0400Body mass index (BMI) [Ratio]33.75 kg/n0Wegnp Jessica DO Work Phone: 1(616)[facility] [place], [place] [address]Wlmkxqvcet02-49-4380 10:48-0400Body mcyyni87.99 kgCorey Jessica DO Work Phone: 1(904)[facility] [place], [place] [address]Lnxqiqabgz93-86-0162 10:48-0400Diastolic blood lshbvfoq52 mm[Hg]Sanjeev Jessica DO Work Phone: [phone] [place], [place] [address]Upymlhjcws51-81-4697 10:48-0400Systolic blood mm[Hg]Sanjeev Jessica DO Work Phone: 1(270)[facility] [place], [place] [address]Leovbyhlyv14-13-9455 11:46-0400Body mass index (BMI) [Ratio]32.78 kg/o9Mklko Jessica DO Work Phone: 1(602)[facility] [place], [place] [address]Dzontsamrf72-45-3307 11:46-0400Body gfasuf52.36 kgCorey Jessica DO Work Phone: [phone] [place], [place] [address]Yetyvabzmu36-00-4479 11:46-0400Diastolic blood licydful44 mm[Hg]Sanjeev Jessica DO Work Phone: 1(343)[facility] [place], [place] [address]Yfqsqnbvqn42-76-9952 11:46-0400Systolic blood mm[Hg]Sanjeev Jessica DO Work Phone: 1(463)[facility] [place], [place] [address]Zfhlnxkudt13-50-8205 13:37-0400Body mass index (BMI) [Ratio]34.28 kg/a2Jpiio Jessica DO Work Phone: [facility] HospitalBvaitmntyt35-04-8614 13:37-0400Body xixmzm37.44 kgCorey Jessica DO Work Phone: [facility] HospitalZjefyurhse63-79-5081 13:37-0400Diastolic blood oqfcnvol09 mm[Hg]Sanjeevbenji Suggso DO Work Phone: [facility] HospitalMoprioclpt28-69-3258 13:37-0400Systolic blood vaqyylsw690 mm[Hg]Sanjeevbenji Lopez DO Work Phone: [facility] HospitalKqqzqubdsd51-54-3326 10:05-0400Body ohomta852.1 Ramon Metzger MD Work Phone: [facility] [facility]03[facility]11[facility]24 10:05-0400Body mass index (BMI) [Ratio]38.94 kg/m2Rohit Metzger MD Work Phone: [facility]03-11-2024 10:05-0400Body afqtfb019.14 kgRohit Metzger MD Work Phone: [facility]02-13-2024 13:48-0500Body ubzliv399.1 Ramon Metzger MD Work Phone: [facility]02-13-2024 13:48-0500Body mass index (BMI) [Ratio]38.94 kg/m2Rohit Metzger MD Work Phone: [facility]02-13-2024 13:48-0500Body xhqvxu380.14 Israel Metzger MD Work Phone: [facility]02-05-2024 13:10-0500Body zwtsaf082.1 Margarita CHAVIRA Work Phone: [facility]02-05-2024 13:10-0500Body mass index (BMI) [Ratio]38.94 kg/p2GfpoivzrJennie Colon COMMUNITY AFFAIRS DIRECTOR-MAINFRAME APPLICATIONS DEVELOPER Work Phone: [facility] CenterS[facility] Ttlelt28-20-8623 13:10-0500Body pnsymw653.14 kgJennie Colon COMMUNITY AFFAIRS DIRECTOR-MAINFRAME APPLICATIONS DEVELOPER Work Phone: [facility] [employer] Nsqvzt26-09-7890 13:10-0500Diastolic blood iagetyob20 mm[Hg]Jennie Colon COMMUNITY AFFAIRS DIRECTOR-MAINFRAME APPLICATIONS DEVELOPER Work Phone: [facility] [employer] [employer] Swwuai47-57-9896 13:10-0500Heart rate 99 /minJennie Colon COMMUNITY AFFAIRS DIRECTOR-MAINFRAME APPLICATIONS DEVELOPER Work Phone: [facility] Fnvtce52-01-9465 13:10-0500Systolic blood nowvbwqy355 mm[Hg]Jennie Colon COMMUNITY AFFAIRS DIRECTOR-MAINFRAME APPLICATIONS DEVELOPER Work Phone: [facility] Ttsjwr08-37-8327 11:43-0500Diastolic blood mm[Hg]Kal Martinez COMMUNITY AFFAIRS DIRECTOR-MAINFRAME APPLICATIONS DEVELOPER Work Phone: [facility] SystemComment on above:.04-14-2023 11:43-0500Systolic blood scixtfls075 mm[Hg]Kal Martinez COMMUNITY AFFAIRS DIRECTOR-MAINFRAME APPLICATIONS DEVELOPER Work Phone: [facility] HospitalComment on above:.04-14-2023 11:38-0500Body mass index (BMI) [Ratio]39.01 kg/o3Tjwjyclovis Martinez COMMUNITY AFFAIRS DIRECTOR-MAINFRAME APPLICATIONS DEVELOPER Work Phone: [facility] Suvlbt77-35-1914 11:38-0500Body xnkcsruhhic55.6 [degF]Kal Martinez COMMUNITY AFFAIRS DIRECTOR-MAINFRAME APPLICATIONS DEVELOPER Work Phone: [facility] [employer] Dcmomh86-02-6324 11:38-0500Body .32 kgPreetclovis Martinez COMMUNITY AFFAIRS DIRECTOR-MAINFRAME APPLICATIONS DEVELOPER Work Phone: [facility] Owzcpd46-09-4899 11:38-0500Heart rate 92 /minPreetclovis Martinez COMMUNITY AFFAIRS DIRECTOR-MAINFRAME APPLICATIONS DEVELOPER Work Phone: [employer]01-12-2024 11:38-0500 Respiratory rate14 /minKal Martinez COMMUNITY AFFAIRS DIRECTOR-MAINFRAME APPLICATIONS DEVELOPER Work Phone: [facility] Center[facility]OUR[facility]01-12-2024 11:38-5956EtV4% (BldA) [Mass fraction]100 %Kal Martinez COMMUNITY AFFAIRS DIRECTOR-MAINFRAME APPLICATIONS DEVELOPER Work Phone: [employer]10-02-2023 10:00-0400Body ypckkq973.56 cmMelvagordomina Laura Other [employer] Other 10-02-2023 10:00-0400Body mass index (BMI) [Ratio] 42.91 kg/m7WsyvrzJohnathon Winter Other [employer] Other 10-02-2023 10:00-0400Body edwtor803.4 kgJohnathon Winter Other [employer] Other 10-02-2023 10:00-0400Diastolic blood iqwcsvae65 mm[Hg] Johnathon Winter Other [employer] Other 10-02-2023 10:00-0400Systolic blood pdayewtr190 mm[Hg] Johnathon Winter Other [employer] Other 08-30-2023 11:00-0400Body mmiilu470.56 cmJohnathon Winter Other [employer] Other 08-30-2023 11:00-0400Body mass index (BMI) [Ratio] 44.56 kg/a3GxqntkJohnathon Winter Other [employer] Other 08-30-2023 11:00-0400Body umhypo119.75 kgJohnathon Winter Other [employer] Other 08-30-2023 11:00-0400Diastolic blood arkfktou142 mm[Hg]Johnathon Laura Other [employer] Other 08-30-2023 11:00-6061BrR9% (BldA) [Mass fraction]100 % Johnathon Laura Other [employer] Other 08-30-2023 11:00-0400Systolic blood vioszozu783 mm[Hg] Johnathon Laura Other [employer] Other 07-11-2023 18:45-0400Body evjura317.1 cmSshirley Garcia MD Work Phone: [employer]07-11-2023 18:45-0400Body mass index (BMI) [Ratio]43.93 kg/m2Roxie Garcia MD Work Phone: [employer]07-11-2023 18:45-0400Body yclmcexnbay23 [degF]Roxie Garcia MD Work Phone: [employer]07-11-2023 18:45-0400Body ebfzfq674.75 kgRoxie Garcia MD Work Phone: [employer]07-11-2023 18:45-0400Diastolic blood mm[Hg]Roxie Garcia MD Work Phone: [employer]07-11-2023 18:45-0400Heart rate87 /minSshirley Garcia MD Work Phone: [employer]07-11-2023 18:45-0400 Respiratory rate16 /minSyeradha Garcia MD Work Phone: [employer]07-11-2023 18:45-1812TeO0% (BldA) [Mass fraction]98 %Roxie Garcia MD Work Phone: bon [facility]07-11-2023 18:45-0400Systolic blood mm[Hg]Roxie Garcia MD Work Phone: GIANA [facility]10-03-2022 13:54-0400Diastolic blood wywcogct87 mm[Hg]Teo ALEJANDRO [facility]10-03-2022 13:54-0400Heart rate61 /minTokamini Thomas [facility]10-03-2022 13:54-5050McD6% (BldA) [Mass fraction]100 %Teo Thomas [facility]10-03-2022 13:54-0400Systolic blood alndylxt194 mm[Hg]Teo Thomas [facility]10-03-2022 11:46-0400Body jguogc630.1 cmTodd Froylanjoanne [facility]UTAFAWELLMONT [facility]10-03-2022 11:46-0400Body mass index (BMI) [Ratio]44.1 kg/m2 Teo Thomas [facility]10-03-2022 11:46-0400Body gfnhubleozx48.7 [degF]Teo Thomas [facility]10-03-2022 11:46-0400Body weight 120.2 kgTokamini Thomas [facility]10-03-2022 11:46-0400Respiratory rate16 /minTodd Martha [facility]FAWELLMONT [facility]05-19-2022 18:03-0400Diastolic blood zemdjcsq39 mm[Hg]Radha Sanders MD Work Phone: [facility] HospitalCnwkww24-64-1898 18:03-0400Heart rate92 /min Radha Sanders MD Work Phone: [facility] HospitalRalrwy97-42-4184 18:03-0400Respiratory rate16 /minEphong Sanders MD Work Phone: [facility] HospitalJkqpsd21-35-5671 18:03-2058UbT1% (BldA) [Mass fraction]96 %Radha Sanders MD Work Phone: [phone]05-19-2022 18:03-0400Systolic blood luqlszdt019 mm[Hg]Radha Sanders MD Work Phone: [address] [place], [place] [address]Ktjkrx26-94-4477 16:28-0400Body tlkmmu251.1 cm Radha Sanders MD Work Phone: [address] [place], [place] [address]Rwysne44-75-9224 16:28-0400Body mass index (BMI) [Ratio]45.76 kg/w2UktebhRadha Sanders MD Work Phone: [phone] [place], [place] 4390705-19-2022 16:28-0400Body kchaullukra96.6 [degF]Radha Sanders MD Work Phone: [phone] [place], [place] 4390705-19-2022 16:28-0400Body myswlv793.74 kg Radha Sanders MD Work Phone: [facility] Encounters Encounter DateEncounter TypeCare ProviderFacilityStart: 02-03-2025 End: 15-09-5801Wdwwfijql Result EncounterCorey Jessica DO Work Phone: noms External Department UnsolicitedStart: 02-03-2025 End: 30-19-7381Gbqifnukt Result EncounterCorey Jessica DO Work Phone: noms External Department UnsolicitedStart: 01-29-2025 End: 09-18-2658Jdtyks flowsheetAnthony S Rusher DPM Work Phone: [facility] PodiatryStart: 01-29-2025 End: 93-44-2685Vjtssf flowsheetAnthony S Rusher DPM Work Phone: [facility]iatryStart: 01-29-2025 End: 23-20-0178Viirrq outpatient visit 25 minutesAnthony S Rusher DPM Work Phone: [facility] PodiatryComment on above:S/P foot surgery (Primary Dx); 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; Acquired deformity of right toe; Alberto trejo, rightStart: 01-29-2025 End: 04-43-1463tjwowcrbzvYQXXRUO S RUSHERNot AvailableStart: 01-15-2025 End: 03-90-9354tgmpablnwxJLCNPTFransisca FajardoPerry County Memorial Hospital HospitalStart: 01-06-2025 End: 04-08-6000bkyqfjkotkUzapcuxDre Rivera MDFacility:PM Bert Start: 01-03-2025 End: 32-45-5952Pcebnm Kimmy Meyer COMMUNITY AFFAIRS DIRECTOR-MAINFRAME APPLICATIONS DEVELOPER Work Phone: [facility] HealthStart: 11-05-2024 End: 86-75-9398Dkxoxv Kimmy Meyer COMMUNITY AFFAIRS DIRECTOR-MAINFRAME APPLICATIONS DEVELOPER Work Phone: [facility] HealthStart: 10-29-2024 End: 31-49-6499Xzbrqx flowsheetAnthony S Rusher DPM Work Phone: [facility]iatryStart: 10-29-2024 End: 94-86-6743Vaonjh flowsheetAnthony S Rusher DPM Work Phone: [facility]iatryStart: 10-29-2024 End: 26-81-5903Rqvhqs follow up visit related to original pxAnthony S Rusher DPM Work Phone: [facility] PodiatryComment on above:S/P foot surgery (Primary Dx); Left foot painStart: 10-29-2024 End: 08-86-9706oddcqunekyVLGFHLR S RUSHERNot AvailableStart: 10-21-2024 End: 20-76-2888yvxxaytdceFRAZIU NOEL JEZAKProMedPerry County Memorial Hospital HospitalStart: 09-17-2024 End: 81-20-3645Lcrjje flowsheetAnthony S Rusher DPM Work Phone: noms PODIATRYStart: 09-17-2024 End: 42-69-9617Lmbcof flowsheetAnthony S Rusher DPM Work Phone: noms PODIATRYStart: 09-17-2024 End: 08-69-3740Qqezuo follow up visit related to original pxAnthony S Rusher DPM Work Phone: NOXF PODIATRYComment on above:S/P foot surgery (Primary Dx); Left foot painStart: 09-17-2024 End: 70-01-1496sqffmrhpztCSKMFRQ S RUSHERNot AvailableStart: 09-04-2024 End: 44-79-7111Itixib flowsheetAnthony S Rusher DPM Work Phone: NOMS PODIATRYStart: 09-04-2024 End: 14-67-1999Xqkepg flowsheetAnthony S Rusher DPM Work Phone: noms PODIATRYStart: 09-04-2024 End: 39-09-4939Bddpeo follow up visit related to original pxAnthony S Rusher DPM Work Phone: noms PODIATRYComment on above:S/P foot surgery (Primary Dx); Left foot painStart: 09-04-2024 End: 83-10-5096rctdqkhhaeTYMTWPW S RUSHERNot AvailableStart: 09-02-2024 End: 80-42-2234tujokmvafcYYPRSG [facility] Dublintart: 08-21-2024 End: 81-53-5000Hydncv flowsheetAnthony S Rusher DPM Work Phone: NOGJ PODIATRYStart: 08-21-2024 End: 40-07-1311Dveugs flowsheetAnthony S Rusher DPM Work Phone: noMS PODIATRYStart: 08-21-2024 End: 05-54-7546Fphcja follow up visit related to original pxAnthony S Rusher DPM Work Phone: noms PODIATRYComment on above:S/P foot surgery (Primary Dx); Left foot pain; Difficulty walking; Instability of left ankle jointStart: 08-21-2024 End: 53-27-7118otushgccoyRZTHWNT S RUSHERNot AvailableStart: 08-08-2024 End: 78-89-9841Xafrndipgo and management of inpatientANTHMOMO Whitney MARIA DEL ROSARIOAdena Pike Medical Centertart: 08-06-2024 End: 71-69-5072orhwzltnvfGYAAFSLakeside Hospitaltart: 08-05-2024 End: 70-58-2851bncskdkeyiZDXQXYMansfield Hospital Start: 08-05-2024 End: 33-39-3186Omtbxumdk for preprocedural cardiovascular examinationSt. Francis Hospitaltart: 07-31-2024 End: 68-05-4033Otggppb encounter procedureCincinnati Va [facility] Pre-Ad[facility] Testing [address] [place] [address] - Pre AdmitComment on above:Preop examination (Primary Dx); Hypertension, unspecified typeStart: 07-31-2024 End: 23-66-7121Mtxxkvoybbghz examination done[address] Streettart: 07-31-2024 End: 76-24-1227Ntkent flowsheetGeorgi Carreon DPM Work Phone: noms PODIATRYStart: 07-31-2024 End: 33-52-9983Soiyna flowsheetGeorgi Chelo Velma DPM Work Phone: noms PODIATRYStart: 99-20-5495Pnodshazo for other preprocedural examinationGeorgetown Behavioral Hospitaltart: 07-31-2024 End: 72-95-9354Iwzien outpatient visit 25 minutesAnthmomo Carreon DPM Work Phone: noms PODIATRYComment on above:Hallux valgus of left foot (Primary Dx); Instability of left foot joint; Tailor's bunion of left foot; Acquired deformity of left toe; 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; Equinus contracture of left ankleStart: 07-31-2024 End: 42-84-0578bvudbbuoahVZXITQR S [facility] Hospitaltart: 07-31-2024 End: 70-19-4880micgdelflpRDDXV M SOMMERSCleveland Clinic Marymount Hospitaltart: 07-29-2024 End: 42-11-5931ipxfkoqqtaTqwpysekr [facility] Work Phone: Start: 07-29-2024 End: 13-27-9970Kdjaazu encounter procedureUn[facility] Work Phone: Start: 07-22-2024 End: 61-97-4271Bgjdzgi encounter procedureCorey Jessica DO Work Phone: [facility] Work Phone: Start: 07-22-2024 End: 76-81-0931Pchvwgcz preventive med est patient 40-64yrsCorey Jessica DO Work Phone: noms BCP OBComment on above:Well woman exam with routine gynecological exam; Breast cancer screening by mammogramStart: 57-74-2095Nyq-patient / Non-visit [facility] Work Phone: Start: 07-22-2024 End: 87-38-4537Vrzpls flowsheetCorey Jessica DO Work Phone: noms BCP OBStart: 07-22-2024 End: 47-29-8888Yahcgc flowsheetCorey Jessica DO Work Phone: noms BCP OBStart: 07-22-2024 End: 89-93-3520Pckmbngxr Result EncounterCorey Jessica DO Work Phone: noms External Department UnsolicitedStart: 07-22-2024 End: 16-73-4511avkaajiqofTMKNX FAZIONot AvailableStart: 07-17-2024 End: 85-56-6449klevnmfhhaPIBVUDC S RUSHERProUniversity [facility] HospitalStart: 07-17-2024 End: 25-77-4237xsbxsghdaoCYTWT FRANKWood County Hospital HospitalStart: 07-16-2024 End: 46-39-1787Ghvovw flowsheetAnthony S Rusher DPM Work Phone: noms PODIATRYStart: 07-16-2024 End: 78-55-3878Rhcaqp flowsheetWaltermomo Whitney Velma DPM Work Phone: noms PODIATRYStart: 07-16-2024 End: 27-07-8467Egsnvg outpatient visit 25 minutesWaltermomo Whitney Velma DPM Work Phone: noms PODIATRYComment on above:Hallux valgus of left foot (Primary Dx); Instability of left foot joint; Tailor's bunion of left foot; Acquired deformity of left toe; 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; Equinus contracture of left ankle; Left foot pain; Vitamin D insufficiencyStart: 07-16-2024 End: 06-29-4903ftdpfxbakeHEWIXLW S RUSHERNot AvailableStart: 87-97-8988Lau- patient / Non-visitUn[facility] Work Phone: Start: 07-03-2024 End: 78-77-2025yftahmxgcgFSTNJD [facility] Start: 33-54-7894Bqhydevhg department patient visitMarcimina Winter Facility:[facility]tart: 05-29-2024 End: 86-83-0987ctfxxgjbubORTLANovant Health Franklin Medical Centertart: 05-17-2024 End: 76-15-6287oqophbftomXwipejnbgOhioHealth Mansfield Hospital Work Phone: Start: 05-17-2024 End: 08-76-9083Awdihph encounter procedureUn[facility] Work Phone: Start: 05-08-2024 End: 16-47-3708dnxcmfoayjYNGHENovant Health Franklin Medical Centertart: 04-15-2024 Non-patient / Non-visit[facility] Work Phone: Start: 32-33-2250Avqcrpz encounter statusOhio State East Hospitaltart: 04-11-2024 End: 66-78-7967ybsehzwfhqMwlhyplrsOhioHealth Mansfield Hospital Work Phone: Start: 04-11-2024 End: 08-25-2562Dtsxiwfjr for general adult medical examination without abnormal findingsOhio State East Hospitaltart: 04-11-2024 End: 96-75-1294Ulwimxf encounter procedureUn[facility] Health Blue [facility] GroupMer[facility] Work Phone: Start: 04-08-2024 End: 53-86-1040kpehstecdcZSHWRNovant Health Franklin Medical Centertart: 04-01-2024 End: 26-31-8508Gotxgaxkd Result EncounterCorey Jessica DO Work Phone: noms External Department UnsolicitedStart: 04-01-2024 End: 83-59-1133Mamnzjybe Result EncounterCorey Jessica DO Work Phone: noms External Department UnsolicitedStart: 04-01-2024 Non-patient / Non-visitUn[facility] Health Blue [facility] GroupAstria [facility] Work Phone: Start: 03-22-2024 End: 68-04-6259Dugfnzlarvmlc procedureCaitlyn Logan RNDojulianna [facility] - Medical OncologyStart: 03-13-2024 End: 66-34-0664Aejxigmby Result EncounterCorey Jessica DO Work Phone: noms External Department UnsolicitedStart: 03-13-2024 End: 87-62-3156Gcfvvqmlv Result EncounterCorey Jessica DO Work Phone: noms External Department UnsolicitedStart: 02-26-2024 End: 91-43-1247Eedxsm flowsheetCorey Jessica DO Work Phone: noms BCP OBStart: 02-26-2024 End: 40-79-7150Qoogun flowsheetCorey Jessica DO Work Phone: [facility] BCP OBStart: 02-26-2024 End: 45-24-9330Yqvkdo outpatient visit 15 minutesCorey Jessica DO Work Phone: noms BCP OBComment on above:Breast painStart: 02-26-2024 End: 52-35-1217drwzkulcazZEFJB FAZIONot AvailableStart: 76-16-0912Aud-patient / Non-visitFirelands [facility] Work Phone: Start: 01-26-2024 End: 19-39-5669LsgbzaChong Liang MD Work Phone: [facility] Sign InStart: 01-26-2024 End: 48-99-1127Cdnsifwsud and management of inpatientKRISTEN SNYDERProMedica Bray HospitalStart: 01-25-2024 End: 19-40-6489ixveegmlnnRIOGTR PALAKODETIProMedica Plainfield HospitalStart: 73-20-8816Xcg-patient / Non-visitFirelands Physician [facility] Uvaldo Work Phone: Start: 01-18-2024 End: 58-79-6128Sobzusfre to [facility] Hospitalro [facility] Phone Call Provider 3 [facility]ertart: 01-18-2024 End: 09-84-5919Vshbmpbzya and management of inpatientMARCIA E BRAUNProMedica Bray HospitalStart: 83-33-4312Wff-patient / Non-visitFirelands Physician GroupAstria [facility] Work Phone: Start: 01-14-2024 End: 10-94-8257Oxdogiupc department patient visitMarvin StalterFacility:Jennifer HospitalStart: 01-03-2024 End: 05-67-6484Kmynoi flowsheetCorey Jessica DO Work Phone: [facility] BCP OBStart: 01-03-2024 End: 21-32-8757Jvznog flowsheetCorey Jessica DO Work Phone: [facility] BCP OBStart: 01-03-2024 End: 71-51-3432Aqqjdm follow up visit related to original pxCorey Jessica DO Work Phone: noms BCP OBComment on above:Postop check; Low ferritin levelStart: 12-28-2023 End: 63-13-6327Jkqfzdgqf Result EncounterCorey Jessica DO Work Phone: noms External Department UnsolicitedStart: 12-28-2023 End: 00-01-1893Gexkbrkys Result EncounterCorey Jessica DO Work Phone: noms External Department UnsolicitedStart: 12-22-2023 End: 99-78-8145Uvbcutmvo Result EncounterCorey Jessica DO Work Phone: noms External Department UnsolicitedStart: 12-22-2023 End: 82-58-7952Qszrzaxws Result EncounterCorey Jessica DO Work Phone: noms External Department UnsolicitedStart: 12-08-2023 End: 48-04-6233Djvnjvcka Result EncounterCorey Jessica DO Work Phone: noms External Department UnsolicitedStart: 12-08-2023 End: 66-96-0304Hmrfdsocj Result EncounterCorey Jessica DO Work Phone: noms External Department UnsolicitedStart: 12-06-2023 End: 92-56-7122ndohyfwovlHbwav [facility] Work Phone: Start: 12-06-2023 End: 43-53-2013Enlssaxw ReferredDO Sanjeev Jessica Work Phone: [facility] [place] Work Phone: Start: 12-06-2023 End: 78-07-7267Hyysyip encounter procedureCorey Jessica DO Work Phone: noms [facility] OBComment on above:Pre-op examination; Menorrhagia with regular cycle; Abnormal uterine bleeding (AUB); Pelvic pain; Hormone disorderStart: 12-06-2023 End: 95-82-7184Bxfsplwiyootk examination doneCorey Jessica DO Work Phone: NOM[facility] HealthcareStart: 86-63-3180Pup-patient / Non-visitDO Sanjeev Jessica Work Phone: [facility] GroupAst[facility] Professional [facility] Work Phone: Start: 11-29-2023 End: 00-24-9914Ypyogn flowsheetCorey Jessica DO Work Phone: noms BCP OBStart: 11-29-2023 End: 23-87-7239Ujkhsb flowsheetCorey Jessica DO Work Phone: [facility] BCP OBStart: 11-29-2023 End: 10-61-5776Zorubagnt Result EncounterCorey Jessica DO Work Phone: noms External Department UnsolicitedStart: 11-29-2023 End: 22-22-8370Ytngwy outpatient visit 15 minutesCorey Jessica DO Work Phone: noms [facility] OBComment on above:Encounter to discuss procedure; Menorrhagia with regular cycle; Decreased libidoStart: 11-15-2023 End: 97-62-0650Rerdxvrtf Result EncounterCorey Jessica DO Work Phone: [facility] External Department UnsolicitedStart: 11-15-2023 End: 79-20-6817Eteembcul Result EncounterCorey Jessica DO Work Phone: noms External Department UnsolicitedStart: 10-25-2023 End: 80-28-7981Pfbzmmkam Result EncounterCorey Jessica DO Work Phone: NOPZ External Department UnsolicitedStart: 10-25-2023 End: 87-20-8229Towtzfvvk Result EncounterCorey Jessica DO Work Phone: noms External Department UnsolicitedStart: 10-25-2023 Non-patient / Non-visitDO Sanjeev Jessica Work Phone: [facility] GroupAst[facility] Work Phone: Start: 08-23-2023 End: 46-82-9972stjcpcnuvyZcnmyr E BraunFacility:[facility] Hospitaltart: 06-12-2023 End: 97-01-7375iuhlhslpuwLJSS HOUGHTALING [facility] Comment on above:Lumbar radiculopathy, chronic (Primary Dx); Herniated lumbar intervertebral discStart: 06-12-2023 End: 85-00-9569Amusuo outpatient visit 10 minutesJozoë Smith MD Work Phone: [facility] Spine SurgeonsComment on above: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) Start: 06-09-2023 End: 18-18-3379Ztjowjkau Result EncounterCorey Jessica DO Work Phone: noms External Department UnsolicitedStart: 06-09-2023 End: 00-41-5265Bgaeuqiwu Result EncounterCorey Jessica DO Work Phone: noms External Department UnsolicitedStart: 05-24-2023 Chong Colon COMMUNITY AFFAIRS DIRECTOR-MAINFRAME APPLICATIONS DEVELOPER Work Phone: [facility] NeuroSurgeryComment on above: Herniated lumbar intervertebral disc (Primary Dx); Lumbar radiculopathy, chronicStart: 05-23-2023 End: 19-01-8013Ttqtbbtaj Result EncounterCorey Jessica DO Work Phone: noms External Department UnsolicitedStart: 05-23-2023 End: 87-74-5804Vqspbikme Result EncounterCorey Jessica DO Work Phone: noms External Department UnsolicitedStart: 05-23-2023 End: 87-83-9013brsvdmopsbRpiwtm Roger [facility]berK[facility] Work Phone: Start: 05-23-2023 End: 18-37-3581Mkosszqm ReferredMD Tee Peterson Work Phone: [facility] Path Spec Bert HospStart: 05-16-2023 End: 56-68-4057xdewlrxwylFSEKArcelia SMITH [facility] Start: 05-16-2023 End: 64-35-1861Vljffl outpatient new 30 Evaristo Smith MD Work Phone: [facility] Spine SurgeonsComment on above: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); Finger injury, right, initial encounterStart: 61-54-3014Cppkls Tameka Colon COMMUNITY AFFAIRS DIRECTOR-MAINFRAME APPLICATIONS DEVELOPER Work Phone: [facility] NeuroSurgeryComment on above: Herniated lumbar intervertebral disc (Primary Dx)Start: 05-10-2023 End: 56-06-8130tgormihrhaYtgchv Braun Other [facility] [employer] Other Start: 05-10-2023 End: 10-45-4633Jvbgrcmpv Result EncounterCorey Jessica DO Work Phone: n[facility] External Department UnsolicitedStart: 05-10-2023 End: 37-42-7366Fhjfjojdj Result EncounterCorey Jessica DO Work Phone: n[facility] External Department UnsolicitedStart: 05-10-2023 Encounter by computer Ranjeet Gross [facility]: 05-10-2023 Non-patient / Non-visitMD Tee Peterson Work Phone: [facility] Professional [employer] Work Phone: Start: 05-08-2023 End: 44-30-9972Gmucbk outpatient new 45 Shayy Colon COMMUNITY AFFAIRS DIRECTOR-MAINFRAME APPLICATIONS DEVELOPER Work Phone: [facility] Spine CareComment on above:Lumbar radiculopathy, chronic (Primary Dx); Urinary incontinence without sensory awareness; Sensory deficit, left; Spinal stenosis of lumbar region with neurogenic claudicationStart: 05-04-2023 End: 45-80-7510Yslych outpatient visit 10 minutesEverett Okeefe NP Work Phone: NO[facility] FB ORTHOPAEDICSComment on above: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); Pain in finger of right handStart: 04-28-2023 End: 40-01-7335Ccvgjijmz Result EncounterCorey Jessica DO Work Phone: [facility] External Department UnsolicitedStart: 04-28-2023 End: 81-72-9829Brkoxnfxt Result EncounterCorey Jessica DO Work Phone: [facility] External Department UnsolicitedStart: 04-19-2023 End: 29-78-4011ugagamgjkaQouougei Ball Other [employer] Other Start: 11-57-0838Ridnxpdew encounterBebere [facility] ClinicStart: [facility]2023 End: 09-23-1723otqyfxzbcmVZIXXJ Jay BRAUNMiami Valley Hospitalca Health SystemComment on above: Back pain, unspecified back location, unspecified back pain laterality, unspecified chronicity (Primary Dx)Start: 04-14-2023 End: 92-78-3285Bbrmzy outpatient visit 15 minutesKal Martinez APRN-MAINFRAME APPLICATIONS DEVELOPER Work Phone: [facility] OregonComment on above:Acute left-sided low back pain with left-sided sciatica (Primary Dx)Start: 04-12-2023 End: 80-91-9538nhcmxeewvnFckgpp Braun Other [employer] Other Start: 27-23-8155Icbtmljrq encounterMarcia [facility] ClinicStart: 04-11-2023 End: 89-87-2617pxvakmdhwyTorsib Laura Other [employer] Other Start: 45-71-4170Zhdtgyiho encounterMarcia [facility] ClinicStart: 04-10-2023 End: 88-20-9564mtvskmmtmdQerkhe Braun Other [employer] Other Start: 10-56-4191Edvmadxpd by computer linkMarcia BraunFPG Ball Medical ClinicStart: 01-30-2023 End: 59-92-0973rnmvrfgqjiVenokr Winter Other [employer] Other Start: 14-48-4106Rjhfyqfkd encounterJohnathon Lyn Medical ClinicStart: 01-02-2023 End: 21-36-5260iqbajgmsymBxxtmr Winter Other [employer] Other Start: 05-94-8415Muccul outpatient visit 15 minutes [facility] ClinicStart: 12-09-2022 End: 86-81-0417hbjjmymqrxPvjwyw Winter Other [employer] Other Start: 23-51-8872Rrinjtpwq encounterJohnathon Lyn Medical ClinicStart: 12-08-2022 End: 92-74-2145oqxzhpnsevGmgjhp Winter Other [employer] Other Start: 16-03-0845Mnewginax encounterJohnathon Lyn Medical ClinicStart: 2022 End: 69-39-7529ohvwkfequjAkjfcj Winter Other [employer] Other Start: 61-56-6081Nnfotf outpatient new 30 minutes [facility] ClinicStart: 10-11-2022 End: 62-04-5186Uuuptmijh department patient visitCleveland Clinic South Pointe Hospitaltart: 10-11-2022 End: 28-67-0263Vhknmfqpp department patient visitSyed Delores Garcia MD Work Phone: [facility] Emergency DepartmentComment on above:Sprain of right ankle, unspecified ligament, initial encounter (Primary Dx)Start: 07-11-2022 End: 55-69-4474nvmloiejlvNM SANJEEV JESSICA .Facility:G3Mkjuv: 04-29-2022 End: 77-65-2626bkineohhdlOY SANJEEV JESSICA .Facility:S3Grgop: 02-16-2022 End: 82-23-0105Pticinhvi department patient visitCleveland Clinic South Pointe Hospitaltart: 01-03-2022 End: 97-58-4571Pggkqckiu department patient visitCleveland Clinic South Pointe Hospitaltart: 01-03-2022 End: 80-26-3326Mrrsgxfgm department patient visitTodd Mina [facility] EDComment on above:Gastroenteritis (Primary Dx)Start: 08-19-2021 End: 06-84-8805Duyqpzsmh department patient visitRadha Sanders MD Work Phone: [facility] EDComment on above:Herniated lumbar intervertebral disc (Primary Dx) Procedures DateProcedureProcedure DetailPerforming ClinicianStart: 72-11-3626BSK T3 FREE Sanjeev Jessica DO Work Phone: Start: 66-47-9751IKF THYROID STIM HORMONECorey Jessica DO Work Phone: Start: 06-70-0795WLT THYROXINE (T4)Sanjeev Jessica DO Work Phone: Start: 13-61-2810KDM GLUCOSE BLOODCorey Jessica DO Work Phone: Start: 66-48-8485Wegku foot complete minimum 3 views Georgi Carreon DPM Work Phone: Start: 61-41-1869Iyqhx foot complete minimum 3 views Georgi Carreon DPM Work Phone: Start: 23-52-6483Kaczr foot complete minimum 3 views Georgi Carreon DPM Work Phone: Start: 49-03-8726Jjfja foot complete minimum 3 views Georgi Carreon DPM Work Phone: Start: 07-22-2024 End: 33-02-7643Rzudf dip stick/tablet rgnt non-auto w/o micrscpCorey Jessica DO Work Phone: Start: 08-98-9839QBL,APTIMA HPV,AGE GDLNCorey Jessica DO Work Phone: Start: 70-46-6558Jjesagmhqgs observation [Identifier] in Cervix by Cyto John Meyer COMMUNITY AFFAIRS DIRECTOR-MAINFRAME APPLICATIONS DEVELOPER Work Phone: Start: 84-12-3278Xbbmb foot complete minimum 3 views Georgi Carreon DPM Work Phone: Start: 53-28-2785SSH HEMOGLOBIN H3MVpaba Jessica DO Work Phone: Start: 58-64-9645OY TOMOSYNTHESIS DIAGNOSTIC BICorey Jessica DO Work Phone: Start: 59-38-6949YR BREAST BI LIMITEDCorey Jessica DO Work Phone: Start: 60-22-7550Jxkoxvkycbvtud vitamin b-12Corey Jessica DO Work Phone: Start: 17-19-8753GIU CBC WITH AUTO DIFFCorey Jessica DO Work Phone: Start: 53-35-7695NQX HEMOGLOBIN D2VQseky Jessica DO Work Phone: Start: 10-86-7921Vwfdk test visual color cmprsn methsCorey Jessica DO Work Phone: Start: 20-68-6556ZKA DHEA SULFATECorey Jessica DO Work Phone: Start: 55-39-4847FKUXL SEX BINDING HORMONE (SHBG), TESTOSTERONE, FREE AND BIOAVAILABLECorey Jessica DO Work Phone: Start: 38-76-3311DKJWCS TESTOSTERONE FREE/TOT EQUILIB Sanjeev Jessica DO Work Phone: Start: 72-00-2209RY TOMOSYNTHESIS DIAGNOSTIC LTCorey Jessica DO Work Phone: [phone]: 85-87-4599HQ PELVIS W/ TRANSVAGINALCorey Jessica DO Work Phone: Start: 21-37-1991HPX CBC WITH AUTO DIFFCorey Jessica DO Work Phone: [phone]: 21-58-9974KYB THYROID STIM HORMONECorey Jessica DO Work Phone: [phone]: 20-71-9442XUY THYROXINE (T4) FREECorey Jessica DO Work Phone: Start: 86-46-2081CDA APTTCorey Jessica DO Work Phone: Start: 41-08-9396MXKBKF PROTHROMBIN TIME INR W/O COUM Sanjeev Jessica DO Work Phone: [phone]: 22-51-6243TXL PREG QUANT HCGCorey Jessica DO Work Phone: [phone]: 67-40-6167Ldbhaw-up visitFollow-upJOHN HOUGHTALING VStart: 52-73-8659OI POST BIOPSY LTCorey Jessica DO Work Phone: Start: 96-99-2182LR STEREOTACTIC LOC LTCorey Jessica DO Work Phone: Start: 88-15-6998DD POST BIOPSY LTCorey Jessica DO Work Phone: Start: 23-49-8908BR STEREOTACTIC LOC LTCorey Jessica DO Work Phone: Start: 40-29-7313XM DIAGNOSTIC MAMMO UNILAT LTCorey Jessica DO Work Phone: Start: 45-74-1040YW BREAST LT LIMITEDCorey Jessica DO Work Phone: Start: 89-46-6571ZNG C-PEPTIDECorey Jessica DO Work Phone: Start: 72-97-4003UIN DHEA SULFATECorey Jessica DO Work Phone: Start: 69-40-2456RZN ESTRONE(E1)Sanjeev Jessica DO Work Phone: Start: 81-11-7841LZW PROGESTERONECorey Jessica DO Work Phone: [phone]: 41-06-0460PYY T3 FREECorey Jessica DO Work Phone: [phone]: 41-93-5744QTD T3 REVERSECorey Jessica DO Work Phone: [phone]: 75-83-1306MQG THYROID STIM HORMONECorey Jessica DO Work Phone: [phone]: 26-64-1007SQQ THYROXINE (T4)Sanjeev Jessica DO Work Phone: Start: 11-61-9989ZKF THYROXINE (T4) FREECorey Jessica DO Work Phone: Start: 46-76-6343DZN FERRITINCorey Jessica DO Work Phone: Start: 83-13-8318QTYUZKYV, FREE DIALYSIS, LCMSCorey Jessica DO Work Phone: Start: 40-90-4742CPHWY SEX BINDING HORMONE (SHBG), TESTOSTERONE, FREE AND BIOAVAILABLECorey Jessica DO Work Phone: Start: 25-06-5418DPP HEMOGLOBIN H7BPsino Jessica DO Work Phone: Start: 98-81-0608NXFEBS TESTOSTERONE FREE/TOT EQUILIB Sanjeev Jessica DO Work Phone: Start: 03-54-2349JBF ESTRONECorey Jessica DO Work Phone: Start: 92-75-5677MOP GLUCOSE BLOODCorey Jessica DO Work Phone: Start: 36-57-7391CPP INSULINCorey Jessica DO Work Phone: Start: 73-38-3576QOH THYROID ANTIBODIESCorey Jessica DO Work Phone: Start: 17-72-1772VOO VITAMIN D 25 OHCorey Jessica DO Work Phone: Start: 48-34-4473SQ SEROTONINCorey Jessica DO Work Phone: Start: 17-92-7192OI TOMOSYNTHESIS SCREENING BICorey Jessica DO Work Phone: Start: 19-93-2863Clpcf ankle complete minimum 3 views Bailee Greshams COMMUNITY AFFAIRS DIRECTOR - MAINFRAME APPLICATIONS DEVELOPER Work Phone: Start: 67-44-8780Vjhmwsueuy microscopic onlyMorgan Cristian COMMUNITY AFFAIRS DIRECTOR - SHIFT PRODUCTION ASSOCIATE Work Phone: Start: 21-31-0786Xocxu dip stick/tablet rgnt auto w/o microscopyMorgan Cristian COMMUNITY AFFAIRS DIRECTOR - SHIFT PRODUCTION ASSOCIATE Work Phone: Start: 93-28-3902Eu abdomen & pelvis w/contrast materialMorgan Cristian COMMUNITY AFFAIRS DIRECTOR - SHIFT PRODUCTION ASSOCIATE Work Phone: Start: 84-60-5339Cdpul of lipaseMorgan Cristian COMMUNITY AFFAIRS DIRECTOR - SHIFT PRODUCTION ASSOCIATE Work Phone: Start: 70-85-5713Mrfpv depression screening assessment Serina Rodriguez RMAStart: 88-14-6297Sj lumbar spine w/o contrast materialRadha Sanders MD Work Phone: Plan of Treatment DateCare ActivityDetailAuthorStart: 04-26-6000Enjdilkeh for malignant neoplasm of cervixPap SmearProDayton Osteopathic Hospitalca Health SystemStart: 60-09-2038Sfckbpy Screening Tobacco ScreeningProDayton Osteopathic Hospitalca Health SystemStart: 86-36-8216Cudse BMI Screening Adult BMI ScreeningProDayton Osteopathic Hospitalca Health SystemStart: 57-55-9611Pbbvs BMI Screening Adult BMI ScreeningProDayton Osteopathic Hospitalca Health SystemStart: 47-67-1280Vncjlqw Screening Tobacco ScreeningProDayton Osteopathic Hospitalca [facility] SystemStart: 07-29-2025 End: 53-11-8722Lvfzwhl encounter procedureNOMS BCP OBStart: 04-18-2025 End: 96-66-6372Tstgknm encounter nxddbsmei84/16/2026 11:00 AM EST [facility] [address] [place] [address] Georgi Carreon DPM [address] [place] [address] [facility] [place] [facility]iatryStart: 04-02-2025 End: 04-92-6168Ljtmrtv encounter jtcsoyehh61/31/2025 10:30 AM EST [facility] [place] [facility] [address] [place] [address] eTe Carreon DPM [address] [place] [address] [facility] [place] [facility]iatryStart: 03-10-2025 End: 56-18-4208Uvdgzzg encounter ddjgypfzc89/08/2025 11:00 AM EST [facility] [address] [place] [address] Georgi Carreon DPM [address] [place] [address] [facility] [place] [facility]iatryStart: 01-29-2025 End: 63-25-0932Qwaednf encounter procedureNOMS [place] PodiatryComment on above: ArrivedStart: 12-48-3854Zzxdl BMI ScreeningAdult BMI ScreeningMiami Valley Hospitalca [facility] SystemStart: 35-54-7090Dklnqbi ScreeningTobacco ScreeningKettering Health Dayton System Start: 11-10-5894Urind BMI ScreeningAdult BMI ScreeningMiami Valley Hospitalca [facility] Start: 46-35-6851Hwzezip ScreeningTobacco ScreeningMiami Valley Hospitalca [facility] SystemStart: 87-62-5165Gbbeutamt vaccinationInfluenza VaccineKettering Health Dayton SystemStart: 10-29-2024 End: 13-50-1538Gihuytj encounter procedureNOMS PODIATRYComment on above: ArrivedStart: 09-18-2024 End: 76-66-5998Arhojsc encounter jbatlfxkp29/18/2025 1:15 PM EDT Office Visit [facility] [address] [place] [address] Georgi Carreon, NOE [address] [place] [address] N[facility]S PODIATRYStart: 09-17-2024 End: 10-26-8201Nixshhk encounter xzurtarev90/17/2025 9:45 AM EDT Office Visit [facility] [address] [place] [address] Georgi Carreon DPM [address] [place] [address] ArrivedNOMS PODIATRYComment on above:ArrivedStart: 09-04-2024 End: 23-15-7851Graieci encounter procedureNOMS PODIATRYComment on above: ArrivedStart: 08-21-2024 End: 40-22-6082Asxxzhh encounter procedureNOMS PODIATRYComment on above: ArrivedStart: 08-08-2024 End: 79-53-8000Vwdpjhauz to same day surgery tjnjlj3208/08/2024 7:30 AM EDT - 08/08/2024 10:30 AM EDT Surgery [facility] - Surgery [address] [place] [place] [address] Georgi Carreon, NOE [address] [place] [address] F[employer]ION [employer] & CPT 69542 [21171 (CPT )][facility] - [facility] Comment on above:F[employer] & CPT 62883 [93227 (CPT )]Start: 08-08-2024 End: 15-89-5581Ayvnj hallux valgus w/sesmdc w/1metar medial cnfFUSION LAPIDUS left foot hallux valgus, deformity of 2nd & 5th metatarsal, acquired deformity of toe, equinus contracture, 5th metatarsal tailors bunion 08/08/2024 7:30 AM [facility]: 08-08-2024 End: 67-65-8310Lmlgscofienfb recessionREPAIR MUSCLE RECESSION GASTROCNEMIUS left foot hallux valgus, deformity of 2nd & 5th metatarsal, acquired deformity of toe, equinus contracture, 5th metatarsal tailors bunion 08/08/2024 7:30 AM [facility]Start: 08-08-2024 End: 60-92-0797Gxougg w/wo lngth shrt/corrj metar xcp 1st eaOSTEOTOMY JENNIFER METATARSAL left foot hallux valgus, deformity of 2nd & 5th metatarsal, acquired deformity of toe, equinus contracture, 5th metatarsal tailors bunion 08/08/2024 7:30 AM [facility] SURGERYStart: 08-08-2024 End: 81-86-1493Aprvzy angular dfrm toe soft tiss px onlyEXCISION SOFT TISSUE FOOT left foot hallux valgus, deformity of 2nd & 5th metatarsal, acquired d eformity of toe, equinus contracture, 5th metatarsal tailors bunion 08/08/2024 7:30 AM [facility] SURGERYStart: 97-04-4878Iatacqhsyt hospital visit by ktutlkqyq48/08/2025 7:30 AM EDT Hospital Encounter [facility] - Surgery [address] [place] [address] Georgi Carreon, DPM [address] [place] [address] [facility] - SurgeryStart: 07-31-2024 End: 13-51-7706Apvugws encounter procedureNOMS FH PODIATRYComment on above: ArrivedStart: 07-22-2024 End: 66-94-8415Yuwtzsi encounter procedureNOMS BCP OBComment on above:Arrived Start: 07-22-2024 End: 55-18-5993QM Breast - bilateral ScreeningBilateral screening mammogram Imaging Routine Breast cancer screening by mammogram Expected: 07/22/2024 (Approximate), Expires: 09/21/2025NOAL HealthcareComment on above:Expected: 07/22/2024 (Approximate), Expires: 09/21/2025Start: 07-16-2024 End: 83-84-9818Mppmkrx encounter eqygirnvx52/15/2025 9:00 AM EDT Office Visit [facility] [address] [place] [address] Georgi Carreon, DPM [address] [place], [place] [phone] ArrivedNOWRIGHT MEMORIAL H[facility] PODIATRYComment on above:ArrivedStart: 45-94-2613Ynpgs BMI ScreeningAdult BMI ScreeningProDayton Osteopathic Hospitalca Health SystemStart: 78-73-8558Oxqujhn ScreeningTobacco ScreeningProDayton Osteopathic Hospitalca Health SystemStart: 75-32-0880[place] BMI ScreeningAdult BMI ScreeningProMedica Health SystemStart: 87-87-0906Sbpaddp ScreeningTobacco ScreeningProMedica Health SystemStart: 58-12-5226Birxq BMI ScreeningAdult BMI ScreeningProMedica Health SystemStart: 98-78-0552Edslcxu ScreeningTobacco ScreeningProDayton Osteopathic Hospitalca Health SystemStart: 17-43-7365Nzlgi BMI ScreeningAdult BMI ScreeningProDayton Osteopathic Hospitalca Health SystemStart: 32-31-0183Fzqvrbp ScreeningTobacco ScreeningProDayton Osteopathic Hospitalca Health SystemStart: 02-26-2024 End: 57-62-6927YG Breast - bilateral DiagnosticBilateral diagnostic mammogram Imaging Routine Breast pain Expected: 02/26/2024 (Approximate), Expires: 04/27/2025[facility] Work Phone: comment on above:Expected: 02/26/2024 (Approximate), Expires: 04/27/2025Start: 02-26-2024 End: 90-41-9666Rmmfjkx encounter otkgzfkte08/25/2024 10:00 AM EST Office Visit [facility] [address] [place] [address] [place] [phone] Sanjeev Lopez, [address] [place] [address] ArrivedNOMS BCP OBComment on above:ArrivedStart: 01-25-2024 End: 07-06-7669Mppnpuvqp to same day surgery tmqxph9301/25/2024 10:00 AM EDT - 01/25/2024 1:59 PM EDT Surgery [facility] Surgery [address] [place] [address] [facility], [address], [address] [place] [address] PANNICULECTOMYProMedica Stony Brook Southampton HospitalComment on above:PANNICULECTOMYStart: 01-25-2024 End: 03-40-2798MIDLCDISMAQMUAYJWFDBSDRUCBXL Panniculitis affecting regions of neck and back, site unspecified 01/25/2024 10:00 AM [facility] Start: 58-02-4497Tavrzyuqet hospital visit by vgryqiayq13/24/2024 10:00 AM EDT Hospital Encounter [facility] Surgery [address] [place] [address] [facility], [address], [address] [place] [address] [facility]: 01[facility]2024 End: 26-92-4921Ajnjzyc encounter procedureNOMS BCP OBComment on above:Arrived Start: 12-22-2023 End: 51-72-0900Xccmect encounter fbjbaxjds83/20/2024 10:00 AM EDT Procedure Visit [facility] EXT DEP Sanjeev Lopez, DO [address] [place] [address] NOMS EXT DEPStart: 12-06-2023 End: 72-87-5118G-peptideC-peptide Lab Routine Hormone disorder Expected: 12/06/2023 (Approximate), Expires: 12/05/2024NOMS HealthcareComment on above: Expected: 12/06/2023 (Approximate), Expires: 12/05/2024Start: 12-06-2023 End: 81-37-3681Xdnwvizo freeCortisol, free Lab Routine Hormone disorder Expected: 12/06/2023 (Approximate), Expires: 12/05/2024NOMS HealthcareComment on above:Expected: 12/06/2023 (Approximate), Expires: 12/05/2024Start: 12-06-2023 End: 36-54-1707Lywleon [Mass/volume] in Serum or PlasmaGlucose, random Lab Routine Hormone disorder Expected: 12/06/2023 (Approximate), Expires: 12/05/2024 NOMS HealthcareComment on above:Expected: 12/06/2023 (Approximate), Expires: 12/05/2024Start: 12-06-2023 End: 34-33-7184Fetnked, totalInsulin, total Lab Routine Hormone disorder Expected: 12/06/2023 (Approximate), Expires: 12/05/2024NOAL HealthcareComment on above:Expected: 12/06/2023 (Approximate), Expires: 12/05/2024Start: 12-06-2023 End: 38-51-2445Kmdlbtsut serumSerotonin serum Lab Routine Hormone disorder Expected: 12/06/2023 (Approximate), Expires: 12/05/2024NOMS HealthcareComment on above:Expected: 12/06/2023 (Approximate), Expires: 12/05/2024Start: 12-06-2023 End: 96-28-5791QvvvnjtbwtmvbEtsjoqwdelfwd Lab Routine Hormone disorder Expected: 12/06/2023 (Approximate), Expires: 12/05/2024NOMS HealthcareComment on above: Expected: 12/06/2023 (Approximate), Expires: 12/05/2024Start: 12-06-2023 End: 05-89-4623Zwjdklwehmvhw AntibodyThyroglobulin Antibody Lab Routine Hormone disorder Expected: 12/06/2023 (Approximate), Expires: 12/05/2024[facility] Comment on above:Expected: 12/06/2023 (Approximate), Expires: 12/05/2024Start: 12-06-2023 End: 29-14-3320Ehqbutaouyp [Units/volume] in Serum or PlasmaNOAL Healthcare Comment on above:Ordered: 12/06/2023Expected: 12/06/2023 (Approximate), Expires: 12/05/2024Start: 12-06-2023 End: 72-74-0878Ilivxpv encounter lengnjxcx88/04/2024 11:30 AM EDT Procedure Visit [facility] [address] [place] [address] Sanjeev Lopez, DO [address] [place] [address] [facility] OBStart: 70-30-4485Vfnwevkfd vaccinationInfluenza VaccineKettering Health Dayton SystemStart: 11-29-2023 End: 71-37-3474OQXP-sulfateDHEA-sulfate Lab Routine Decreased libido Expected: 11/29/2023 (Approximate), Expires: 11/28/2024[facility] HealthcareComment on above: Expected: 11/29/2023 (Approximate), Expires: 11/28/2024Start: 11-29-2023 End: 12-54-7201Ztmfsgh encounter anknhdguj77/28/2024 1:50 PM EDT [facility] [address] [place] [address] Sanjeev Lopez, DO [address] [place], [place] [address] [facility] OBComment on above:ArrivedStart: 07-19-2023 End: 69-35-6841Iwegofm encounter fplrxxpfy71/17/2024 1:45 PM EDT Office Visit [facility] [address] [facility] [address] [place] [address] Vishal Martin, [address] [facility] [address] [place] [address] [facility] RehabilitationStart: 07-17-2023 End: 30-44-1703Hlsfhpe encounter vuptwqitt24/15/2024 10:00 AM EDT Office Visit [facility] [address] [place] [address]-357-55[address] Sanjeev Lopez DO [address] [place] [address] NOMS BCP OBStart: 06-12-2023 End: 95-48-2838Ypghman encounter yyacvfcmk21/11/2024 10:05 AM EDT Office Visit [facility] [address] [facility] [address] [place] [address] Rohit Smith MD [address] [place] [address] [facility] SurgeonsStart: 05-19-2023 End: 14-43-1866Uvftuiw encounter okxirxrei69/16/2024 10:15 AM EST Appointment [facility] Imaging [address] [place] [address] [facility]ifrS[facility] - MRI ImagingStart: 05-16-2023 End: 62-76-0444Yfewoqo encounter pfrxkuvle95/13/2024 1:45 PM EST Office Visit [facility] [address] [facility] [address] [place] [address] Rohit Smith MD [address] [place] [address] [facility] SurgeonsStart: 05-08-2023 End: 05-41-4627UY Lumbar spine WO contrastMR lumbar spine without contrast Imaging Routine Lumbar radiculopathy, chronic Urinary incontinencewithout sensory awareness Sensory deficit, left Spinal stenosis of lumbar region with neurogenic claudication Expected: 05/08/2023, Expires: 05/08/2024[facility] Work Phone: Comment on above:Expected: 05/08/2023, Expires: 05/08/2024Start: 05-08-2023 End: 77-41-7760Afnrilc encounter rtxseonnf12/05/2024 1:30 PM EST Office Visit [facility] [address] [place] [address] Jennie Colon, COMMUNITY AFFAIRS DIRECTOR-MAINFRAME APPLICATIONS DEVELOPER [address] [address] [facility] Start: 04-14-2023 End: 74-51-6363MZ Lumbar spine Views W flexion and W extensionX-ray spine lumbar ap, lateral, flexion and extension only Imaging Routine Back pain, unspecified back location, unspecified back pain laterality, unspecified chronicity Expected: 04/14/2023, Expires: 04/14/2024[facility] Work Phone: Comment on above:Expected: 04/14/2023, Expires: 04/14/2024Start: 58-61-4762Yogmxzhqp vaccinationInfluenza VaccineKettering Health Dayton SystemStart: 51-25-4794Qxjlscejkp ScreeningDepression ScreeningKettering Health Dayton SystemStart: 81-81-1128Pjmcwtelr vaccinationFlu vaccine (#1)GIANA [facility]: 61-28-3054Krpad BMI Follow Up PlanAdult BMI Follow Up Plan [facility] Cityt[facility]: 00-16-9023Abywrpndg vaccinationFlu vaccine (Season Ended)[facility]: 26-51-2505Ubxzcovmw vaccinationFlu vaccine (#1)[facility]: 33-61-9545Fdcdtuiq screenDiabetes screenGreene Memorial Hospital Start: 06-45-2997Ckfhombvv for malignant neoplasm of cervixGreene Memorial HospitalStart: 22-63-1120Lcdgwlqbs for malignant neoplasm of cervixPap smearGreene Memorial HospitalStart: 60-24-5896VRaI,Tdap and Td Vaccines (1 - Tdap)DTaP,Tdap and Td Vaccines (1 - Tdap)ProMMahnomen Health Center SystemStart: 58-82-2580MPzZ/Tdap/Td vaccine (1 - Tdap) DTaP/Tdap/Td vaccine (1 - Tdap)[facility] HospitalStart: 07-10-8407Mmftm BMI Follow Up PlanAdult BMI Follow Up PlanAtrium Health University Citytart: 28-95-8741Uxethdvaa C screeningHepatitis C screenGreene Memorial HospitalStart: 84-73-1816Hogkcpviil Screen Depression [facility] NorthStart: 72-11-2349Krekugrgfi ScreeningDepression ScreeningProProMedica Toledo Hospitaltart: 87-38-9198OUBZK-19 Vaccine (1)COVID-19 Vaccine (1)[facility] HospitalStart: 76-63-5473Doygblhkc vaccine (1 of 2 - 2-dose childhood series)Varicella vaccine (1 of 2 - 2-dose childhood series)[facility] Centerart: 77-68-2014DSYBW-19 Vaccine (#1)COVID-19 Vaccine (#1)GIANA [facility]OSPITALEndometrial biopsyEndometrial biopsy Procedures Routine Menorrhagia with regular cycle Abnormal uterine bleeding (AUB) Pelvic pain Ordered: 12/06/2023[facility] Work Phone: comment on above:Ordered: 12/06/2023EstradiolEstradiol Lab Routine Hormone disorder Ordered: 12/06/2023[facility] HealthcareComment on above:Ordered: 12/06/2023EstroneEstrone Lab Routine Hormone disorder Ordered: 12/06/2023[facility] HealthcareComment on above:Ordered: 12/06/2023Ferritin [Mass/volume] in Serum or PlasmaFerritin Lab Routine Hormone disorder Ordered: 12/06/2023[facility] HealthcareComment on above:Ordered: 12/06/2023Hemoglobin A1c/Hemoglobin.total in BloodHemoglobin A1c Lab Routine Hormone disorder Ordered: 12/06/2023[facility] HealthcareComment on above:Ordered: 12/06/2023 ProgesteroneProgesterone Lab Routine Hormone disorder Ordered: 12/06/2023[facility] HealthcareComment on above:Ordered: 12/06/2023Sex hormone binding globulinSex hormone binding globulin Lab Routine Decreased libido Ordered: 11/29/2023[facility] HealthcareComment on above:Ordered: 11/29/2023T3, reverseT3, reverse Lab Routine Hormone disorder Ordered: 12/06/2023[facility] HealthcareComment on above:Ordered: 12/06/2023TESTOSTERONE, FREETESTOSTERONE, FREE Lab Routine Decreased libido Ordered: 11/29/2023[facility] Work Phone: comment on above:Ordered: 11/29/2023Testosterone, free, totalTestosterone, free, total Lab Routine Decreased libido Ordered: 11/29/2023[facility] HealthcareComment on above:Ordered: 11/29/2023Testosterone, free, totalTestosterone, free, total Lab Routine Hormone disorder Ordered: 12/06/2023 [facility] HealthcareComment on above:Ordered: 12/06/2023THIN PREP TIS PAP AND HR HPV DNATHIN PREP TIS PAP AND HR HPV DNA Pathology and Cytology Routine Well woman exam with routine gynecological exam Ordered: 07/22/2024[facility] Work Phone: comment on above:Ordered: 07/22/2024Thyroid peroxidase antibodyThyroid peroxidase antibody Lab Routine Hormone disorder Ordered: 12/06/2023[facility] HealthcareComment on above:Ordered: 12/06/2023Thyroxine (T4) free [Mass/volume] in Serum or PlasmaT4, free Lab Routine Hormone disorder Ordered: 12/06/2023[facility] HealthcareComment on above:Ordered: 12/06/2023Triiodothyronine (T3) Free [Mass/volume] in Serum or PlasmaT3, free Lab Routine Hormone disorder Ordered: 12/06/2023[facility] HealthcareComment on above:Ordered: 12/06/2023Vitamin D 1,25 dihydroxyVitamin D 1,25 dihydroxy Lab Routine Hormone disorder Ordered: 12/06/2023[facility] HealthcareComment on above:Ordered: 12/06/2023Vitamin D 1,25 dihydroxyVitamin D 1,25 dihydroxy Lab Routine Vitamin D insufficiency Ordered: 07/16/2024[facility] Work Phone: Comment on above:Ordered: 07/16/2024[facility] Payers DatePayer CategoryPayerPolicy [id number] Cross Blue [id number] - [id number]. Unknown1.2.840.847060.1.13.693.2.7.3.057[id number] [id number] 1.2.840.797886.1.13.239.2.7.3.604657. [id number] 2.0.1.249297.3.579.2.10491-84-1533Ztcyamy7560658 2..1.553638.3.579.2.45807-35-4802Jdjdiof863131234 2.0.1.455063.3.579.[id number] 2.0.1.086850.3.579.2.94832-78-5388Zbbnnqh698816641 2.0.1.145438.3.579.2.65492-98-5039Eyicmqj13008681 2.0.1.556228.3.579.2.408364-14-7415Dohvzrg15087699 2..1.432944.3.579.2.154510-55-0034Mqhbptf0977775 2..1.805306.3.579.2.318962-14-7894Lsnyoch11050985 2..1.022428.3.579.2.010819-81-8325Zgseenx80348375 2..1.600545.3.579.2.987517-45-8800Jaefici97328806 2..1.963227.3.579.2.795249-46-0569Cueiizo63259606 2..1.370563.3.579.2.349397-57-3158Ixvmwno86636270 2..1.148654.3.579.2.40493-65-2963Oohezve88045060 2..1.906949.3.579.2.36920-43-5795Iansglg44207192 2..1.699638.3.579.2.56659-16-6978Cvouyfr973851062 2..1.292978.3.579.2.04363-72-1614Otulhwd175933767 2..1.838503.3.579.2.674629-71-4565Nuxbhjm746088285 2..1.661490.3.579.2.470495-96-9669Tvbkaoh007093429 2..1.093924.3.579.2.220066-66-5689Bkpthhc588187429 2..1.703910.3.579.2.827789-24-8730Enerwmf995853482 2..1.857498.3.579.2.045178-82-5460Cbznbli139800906 2..1.380301.3.579.2.306012-85-7244Uxijhin595292926 2..1.365209.3.579.2.619609-46-4851Ilvwnjn910185025 2..1.347488.3.579.2.790779-62-4025Eonnaqs802966813 2..1.657522.3.579.2.921429-17-3779Ymeoayc664559446 2..1.251543.3.579.2.074934-27-3427Qhyfmxj989683957 2..1.626953.3.579.2.019756-07-3373Hksesyq987355627 2..1.350076.3.579.2.794697-70-5385Fhvnzau63456917 2..1.636032.3.579.2.502937-43-1920Gmgkbiv87930582 2..1.820010.3.579.2.155260-86-3245Zghyuox89931610 2..1.535514.3.579.2.644609-88-2566Msdmkxr25673109 2..1.468865.3.579.2.281905-67-2386Nccvjwb10848721 2..1.758429.3.579.2.470295-71-1678Mxlfokf56808237 2..1.044736.3.579.2.187188-04-0481Ssrnchs58259961 2..1.752278.3.579.2.230300-28-3069Uonpllo4561636 2..840.1.214482.3.579.2.769663-77-0256Tbglsds2074542 2.16.840.1.541515.3.579.2.832812-13-0639Umgfmuz3759848 2..840.1.621012.3.579.2.662973-60-2997Frkukuh3152413 2.16.840.1.448228.3.579.2.189109-97-2268Maxnrdd5588409 2..840.1.889194.3.579.2.759844-61-9912Lxmiavf6473837 2.840.1.022145.3.579.2.010450-77-9467Bifhgnk7034929 2.0.1.670188.3.579.2.629317-81-3978UevmxkqT2T018U71395Wdvtoie02247632 2.840.1.242955.3.579.2.531 Social History DateTypeDetailFacilityStart: 06-15-2015 End: 63-79-1219Egwnsbh smoking status NHISNever smoked tobaccoGreene Memorial HospitalStart: 06-15-2015 End: 34-32-1302Dpdomzu use and exposureSmokeless tobacco non-userGenesis HospitalEMKinetics Phone: start: 08-19-2021 End: 35-57-8400Lmlfhvb intakeCurrent non-drinker of alcohol (finding)[employer] Phone: start: 08-19-2021 End: 71-53-8604Kwiylqz intakeGenesis HospitalEMKinetics Phone: start: 84-94-3393Zktukgi SDOH Alcohol Commentrarely [employer] Phone: start: 22-63-0324Tat Assigned At BirthNot on [employer]EX Work Phone: start: 08-09-2021 End: 87-17-0133Pgqiovjo to SARS-CoV-2 (event)Not [facility] HospitalR[facility] [employer] Work Phone: History of tobacco usePassive Daphnie PEREZ [facility] [employer] Work Phone: start: 05-04-2023 End: 62-30-6732Ocx Assigned At BirthNomercy hospital [facility] [employer] Other Start: 05-04-2023 End: 58-25-6982Gqzcbcb intakeEx-drinker (finding)[facility] HealthcareStart: 51-92-7227Cjzccbd CommentAlcohol: 1 or 2 drinks on typical day/monthly or less. Caffeine: 1-2 cups/day teaUNIVERSITY OF UTAH HOSPITAL HealthcareStart: 07-60-8343Vlf Assigned At FemaleNOAL HealthcareStart: 82-76-4658Lntibu identityIdentifies as female gender (finding)[facility] HealthcareStart: 00-40-6624Swrcnv orientationHeterosexual (finding)[facility] HospitalHas the electric, gas, oil, or water company threatened to shut off services in your home in past 12Coney Island Hospitaltart: 34-64-8275Mdhtiyousg depression screening dupgwzcmbj5NttWeaqty[address] [place] [address] Start: 11-06-2014 End: 82-74-1844DdfYuhhws (finding)[facility] SystemTobacco smoking status NHISUnknown if ever smokedCincinnati Children'S [facility] Work Phone: NEGATED: Highlighted rowAccess Hospital [facility] Medical Equipment Procedure CodeEquipment CodeEquipment Original TextEquipment IdentifierDates [id number], [id number], [id number]: 09-14-2023 End: 56-23-7083Kuopwn 70n17kt Str G[address] W[address] Jaws Ntnl Bn Rpl [id number] - Sna - [id number]: 64-25-8491Nezrtp 01q60wf Str Grt Wht Jaws Ntnl Bn Rpl [id number] - Sna - [id number]: 53-94-8474Fjhbu Bn 13mm [address]mm B[address] Ns - Sna - [id number]: 91-54-4637Mwpsq Bn 10mm 2mm Hd Mn-Mnstr St Ns - [id number]: 08-08-2024 Goals DatePatient GoalDesired Activity/StatePersonal health goalComment on above: Evaluation of progress towards goal: johns removal; pain management Clinical Notes 08-19-2021 to 01-29-2025 Note Date & DeojAhgkBtnmtopv68-54-4727 History of Present illness Narrative* Georgi Carreon, NOE - 01/29/2025 9:00 AM EDT Images from [...] Morbid obesity with BMI of 45.0-49.9, adult ([facility]) PCOS (polycystic ovarian syndrome) Pre-diabetes Rectal bleeding [...] the morning., Disp: , Rfl: glucose blood (Fashion Movementuch Verio) test strip, Use as instructed, Disp: 100 each, Rfl: 3 Lancets (TrovitTouch Delica Plus Zwrwhi23A) mis, , Disp: , Rfl: losartan (Cozaar) [...] Acquired deformity of right toe M20.61 4. Tailor's bunionette, right M21.621 Patient examined and evaluated. [...] and instructions. TodayI spent 30 minutes in pgqu-uz-iikn discussion with the patient as well as [...] understanding. Georgi Carreon DPM documented in this encounterSaint Luke's HospitalMgpiqjfxkj29-17-6525 History of Present illness Narrative* Georgi Carreon DPM - 10/29/2024 9:00 AM EDT Images from the original [...] well. She notes some stiffness of the 2ndtoe and would like it to bend but [...] Morbid obesity with BMI of 45.0-49.9, adult ([facility]) PCOS (polycystic ovarian syndrome) Pre-diabetes Rectal bleeding [...] each, Rfl: 3 Lancets (OneTouch Delica Plus Gexmvz63A) [facility], , Disp: , Rfl: losartan (Cozaar) 100 [...] Disp: 2 mL, Rfl: 3 nystatin (Mycostatin) 336927 UNIT/GM powder, Apply topically 3 (three) times a day as needed for rash, Disp: 30 g, Rfl: 1 ondansetron ODT (Zofran-ODT) 4 MG disintegrating tablet, DISSOLVE ONE TABLET UNDER THE TONGUE EVERY6 HOURS NEEDED FOR NAUSEA AND VOMITING, Disp: [...] Comments: [facility]. Accompanied by her . HENT: Head: Normocephalic [...] understanding. Georgi Carreon DPM documented in this encounterSaint Luke's HospitalEqzlrqeouq13-90-5750 History of Present illness Narrative* Georgi Carreon DPM - 09/17/2024 9:45 AM EDT Images from the original note [...] Morbid obesity with BMI of 45.0-49.9, adult ([facility]) PCOS (polycystic ovarian syndrome) Pre-diabetes Rectal bleeding [...] each, Rfl: 3 Lancets (OneTouch Delica Plus Yrdgif80P) mis, , Disp: , Rfl: losartan (Cozaar) [...] tablet, DISSOLVE ONE TABLET UNDER THE TONGUE EVERY6 HOURS NEEDED FOR NAUSEA AND VOMITING, Disp: [...] insertion of the plantar fascia and small e nthesophyte at the insertion of the Achilles tendon. [...] boot. Referral sent to PT [facility] [place]. I will follow up with her in [...] understanding. Georgi Carreon DPM documented in this encounterSaint Luke's HospitalIkycivpkbm87-22-1394 History of Present illness Narrative* SINCERE ArroyoMiles - 09/04/2024 8:30 AM EDT Images from the original note were not included. Subjective Patient ID: Cindy Dumont is a 43 y.o. female who presents for POV#2 (Cindy Dumont is a 43 y.o. female who presents for Post Op#2.Date of surgery 08/08/2024: Patient continues 325mg aspirin, icingand advil prn.). HPI Date of surgery 08/08/2024: [...] obesity with BMI of 45.0-49.9, adult ([facility]) PCOS (polycystic ovarian syndrome) Pre-diabetes Rectal bleeding [...] each, Rfl: 3 Lancets (OneTouch Delica Plus Knibdh97Q) mis, , Disp: , Rfl: losartan (Cozaar) [...] tablet, DISSOLVE ONE TABLET UNDER THE TONGUE EVERY6 HOURS NEEDED FOR NAUSEA AND VOMITING, Disp: [...] understanding. Georgi Carreon DPM documented in this encounterSaint Luke's HospitalVsaeoroyij22-68-3366 History of Present illness Narrative* Rosy Nelson MA - 08/21/2024 1:00 PM EDT \ * Georgi Carreon DPM - 08/21/2024 1:00 PM EDT Images from the original note were [...] the morning., Disp: , Rfl: glucose blood (Fashion Movementuch Verio) test strip, Use as instructed, Disp: 100 each, Rfl: 3 Lancets (OneTouch Delica Plus Qrzjrc70T) misc, , Disp: , Rfl: losartan (Cozaar) [...] tablet, DISSOLVE ONE TABLET UNDER THE TONGUE EVERY6 HOURS NEEDED FOR NAUSEA AND VOMITING, Disp: [...] are nonweightbearing. Orthopedic implants intact without signs oflucency. First TMT appears well approximated without any [...] foot taken in office and I discussed myfindings. I am pleased with the clinical and radiographic appearance. Sutures were removed in office. Incisions reinforced with Steri- Strips. 25 percent weight-bearing starting today, 50 percent weight-bearing starting next week. No weight-bearing outside of the fracture boot. Fracture boot should be worn at all times weight-bearing. Patient was fitted today for a below knee walking cast, cam walker. At the time of dispensing it was suitable and not substandard. Goals of therapy include preventfurther injury, stabilization, reduction of stress and pressure [...] understanding. Georgi Carreon DPM documented in this encounterSaint Luke's HospitalWiomgxoehq19-02-8308 NoteUT Cardiology - [facility] Subjective Karuna Dumont is a 43 y.o. year old female being seen for follow up medication changes and renal artery duplex. Echo is scheduled for tomorrow at [facility] in [place]. She needs cleared for foot surgery scheduled for at [facility] also. BP has been much [...] Current Outpatient Medications: amLODIPin (more content not included)...[facility] 07-31-2024 Instructions* Patient Instructions* Mary Ellen Castellon RN - 07/31/2024 2:15 [...] you have a Living Will/Durable Power of Hot Head Machine Operator for Health Care that is not on [...] after you have bathed. 5. NO nail bangladeshi/acrylic on at least one finger. If you are having a hand, wrist or foot surgery then all nail bangladeshi and artificial/acrylic nails must be removed from [...] WITH YOU ANY DEVICES YOU MAY NEED: JABIER hose, ice machine, sling/swath, brace or special [...] least 8 hours and marijuana for 24 hoursprior to arrival for your surgery. 16. If [...] please call the Preadmission Testing office at [phone], Mon.-Fri. 7 a.m.-3 p.m. Leave a voicemail [...] after surgery- do not stop unless directed desmond your physician. You may also be given [...] is normal. Call your doctor if you noticeany of the following: -Increased redness or hardening [...] water and pat the area dry with aclean towel. -No re-using wash cloths or towels; [...] appointment with your doctor. documented in this encounterFirelands [facility]04-30-2025 Miscellaneous Notes* Perioperative Nursing Note - Mary Ellen Castellon RN - 07/31/2024 2:15 [...] you have a Living Will/Durable Power of Hot Head Machine Operator for Health Care that is not on [...] after you have bathed. 5. NO nail bangladeshi/acrylic on at least one finger. If you are having a hand, wrist or foot surgery then all nail bangladeshi and artificial/acrylic nails must be removed from [...] WITH YOU ANY DEVICES YOU MAY NEED: JABIER hose, ice machine, sling/swath, brace or special [...] least 8 hours and marijuana for 24 hoursprior to arrival for your surgery. 16. If [...] please call the Preadmission Testing office at [phone], Mon.-Fri. 7 a.m.-3 p.m. Leave a voicemail [...] after surgery- do not stop unless directed desmond your physician. You may also be given [...] is normal. Call your doctor if you noticeany of the following: -Increased redness or hardening [...] water and pat the area dry with aclean towel. -No re-using wash cloths or towels; [...] to the follow-up appointment with your doctor. * Perioperative Nursing Note - Mary Ellen Castellon RN - 07/31/2024 2:15 PM EDT Hibiclens and surgical instructions reviewed. Patient verbalized understanding. * Perioperative Nursing Note - Mary Ellen Castellon RN - 07/31/2024 2:15 PM EDT Lisette at Dr Carreon's office notified of need for cardiac clearance once patient has her ECHO completed. documented in this encounterFirelands Regional Medical [facility]04-30-2025 Nurse Note* Perioperative Nursing Note - Mary Ellen Castellon RN - 07/31/2024 2:15 [...] you have a Living Will/Durable Power of Hot Head Machine Operator for Health Care that is not on [...] after you have bathed. 5. NO nail bangladeshi/acrylic on at least one finger. If you are having a hand, wrist or foot surgery then all nail bangladeshi and artificial/acrylic nails must be removed from [...] WITH YOU ANY DEVICES YOU MAY NEED: JABIER hose, ice machine, sling/swath, brace or special [...] least 8 hours and marijuana for 24 hoursprior to arrival for your surgery. 16. If [...] please call the Preadmission Testing office at [phone], Mon.-Fri. 7 a.m.-3 p.m. Leave a voicemail [...] after surgery- do not stop unless directed desmond your physician. You may also be given [...] is normal. Call your doctor if you noticeany of the following: -Increased redness or hardening [...] water and pat the area dry with aclean towel. -No re-using wash cloths or towels; [...] to the follow-up appointment with your doctor. [facility]04-30-2025 Nurse Note* Perioperative Nursing Note - Mary Ellen Castellon RN - 07/31/2024 2:15 PM EDT Hibiclens and surgical instructions reviewed. Patient verbalized understanding. [facility]04-30-2025 Nurse Note* Perioperative Nursing Note - Mary Ellen Castellon RN - 07/31/2024 2:15 PM EDT Lisette at Dr Carreon's office notified of need for cardiac clearance once patient has her ECHO completed. [facility]04-30-2025 History of Present illness Narrative* Georgi Carreon DPM - 07/31/2024 1:00 PM EDT Images from the original note were [...] each, Rfl: 3 Lancets (OneTouch Delica Plus Vdqhuv61P) [facility], , Disp: , Rfl: losartan (Cozaar) 100 MG tablet, Take 100 mg by mouth Daily, Disp: , Rfl: metoprolol succinate XL (Toprol-XL) 50 MG 24 hr tablet, Take 50 mg by mouth 1 (one) time each day at the same time, Disp: , Rfl: MONOJECT 3CC SYRINGE 3 ML [facility], , Disp: , Rfl: Mounjaro 12.5 MG/0.5ML solution auto-injector, inject 0.5 milliliters UNDER THE SKIN ONCE WEEKLY, Disp: 2 mL, Rfl: 3 ondansetron ODT (Zofran-ODT) 4 MG disintegrating tablet, DISSOLVE ONE TABLET UNDER THE TONGUE EVERY6 HOURS NEEDED FOR NAUSEA AND VOMITING, Disp: [...] 5th MTP. Increased excursion of the 1st ray.Range of motion of the 1st MTP smooth [...] 5/5 for all quadrants. Ankle dorsiflexion 0 degreeswith the knee extended, flexed. Skin: Capillary Refill: [...] period for the planned procedures which will btgguwt6tq TMT arthrodesis with modified Lazaro bunionectomy, shortening osteotomy of the 2nd metatarsal with direct versus indirect plantar plate repair of the 2nd MTP, tailor's bunionectomy with osteotomy of the 5th metatarsal and possible gastrocnemius recession of the left lower extremity. Total recovery time is expected to be around 3 months. After discussing all the risks and benefits of surgicalintervention she elects to proceed. We will follow [...] understanding. Georgi Carreon DPM documented in this encounterSaint Luke's [id number] History of Present illness Narrative* Natalia Choi LPN - 07/22/2024 3:00 PM EDT Reason for Appointment: Patient ID: Cindy Dumont is a 43 y.o. female who presents for Well Women Visit Patient presents today for Annual Exam. MEDICATIONS Current Outpatient Medications Medication Instructions Alcohol Swabs (B-D SINGLE USE SWABS REGULAR) pads amLODIPine (NORVASC) 10 mg, Daily RT Blood Glucose Monitoring Suppl (D-aisle411 Glucometer) w/Device kit 1 kit, Does not apply, Daily, Use four times daily to check FSBS. In the morning prior to breakfast & 1 hour after each meal for a total of 4times daily. escitalopram (LEXAPRO) 10 mg, Daily RT glucose blood (TrovitTouch Verio) test strip Use as instructed Lancets (TrovitTouch Delica Plus Leenkq34F) misc losartan (COZAAR) 100 mg, Daily metoprolol [...] without aura, not intractable, without status migrainosus ([facility]) 10/06/2022 Frequent headaches 10/06/2022 Hallux valgus (acquired), left foot 10/06/2022 Insulin resistance 10/06/2022 Labial cyst 10/06/2022 Menorrhagia 10/06/2022 Morbid obesity ([facility]) 10/06/2022 Polycystic ovaries 10/06/2022 Weight gain 10/06/2022 Resolved Ambulatory Problems Diagnosis Date Noted No Resolved Ambulatory Problems Past Medical History: Diagnosis Date Encounter for gynecological examination (general) (routine) without abnormal findings Fibrocystic breast 05/2022 Hirsutism Hypertension ([facility]) Migraine Morbid obesity with BMI of 45.0-49.9, adult ([facility]) PCOS (polycystic ovarian syndrome) Pre-diabetes Rectal bleeding [...] nursing note reviewed. Exam conducted with a cable engineer present. Vitals: Estimated body mass index is [...] of: Sanjeev Lopez DO documented in this encounterSaint Luke's HospitalRjfyopoais90-49-7668 History of Present illness Narrative* Georgi Carreon, NOE - 07/16/2024 9:00 AM EDT Images from the original [...] deeper toe box to try and alleviate pressureand pain but she continues to have significant [...] obesity with BMI of 45.0-49.9, adult ([facility]) PCOS (polycystic ovarian syndrome) Pre-diabetes Rectal bleeding [...] each, Rfl: 3 Lancets (OneTouch Delica Plus Gupgwv20O) mis, , Disp: , Rfl: MONOJECT 3CC SYRINGE 3 ML misc, , Disp: , Rfl: Mounjaro 12.5 MG/0.5ML solution auto-injector, inject 0.5 milliliters UNDER THE SKIN ONCE WEEKLY, Disp: 2 mL, Rfl: 3 ondansetron ODT (Zofran-ODT) 4 MG disintegrating tablet, DISSOLVE ONE TABLET UNDER THE TONGUE EVERY6 HOURS NEEDED FOR NAUSEA AND VOMITING, Disp: [...] 5th MTP. Increased excursion of the 1st ray.Range of motion of the 1st MTP smooth [...] 5/5 for all quadrants. Ankle dorsiflexion 0 degreeswith the knee extended, flexed. Skin: Capillary Refill: [...] as well as predislocation syndrome of the 2ndMTP. I discussed treatment options from both the conservative and surgical treatment approach. At this time she has failed extensive conservative care measures including orthotics, anti-inflammatories, physical therapy as well as shoe gear modifications and padding options. I discussed that the conservative measures will not reverse the bunion deformity but but the goal of conservative care is toreduce symptomatology and maximize function. I also did [...] of the left lower extremity. Vitamin-D level orderedin anticipation of osseous procedures. Follow up for [...] understanding. Georgi Carreon DPM documented in this encounterSaint Luke's HospitalDmrnposzsp43-76-2075 NoteUT Cardiology - [facility] Subjective Karuna Dumont is a 43 [...] Swelling and Unknown Medications Current Outpatient Medications: vaasvrabvl-rlgliyesndmbb-kcfh (Fioricet) 50-300-40 mg capsule, Take 50 capsules [...] (one) time per week., Disp: , Rfl: pzqfmzgloedv-ivb-kiwz-FA-vit K 18 mg iron-400 mcg-25 mcg tablet, Take by mouth., Disp: , Rfl: ondansetron ODT (Zofran-ODT) 4 mg disintegrating tablet, Take 4 mg by mouth every 8 (eight) (more content not included)...[facility]03-28-2025 NoteEducation Materials Neurology Migraine Headache A migraine [...] to examine it (cerebrospinal fluid analysis, or CSFanalysis). How is this treated? This condition may [...] these instructions at home: Medicines ? Take bflv-wxn-iuazwsv and prescription medicines only as told by your provider. ? Ask your provider if the medicine prescribed to you: ? Requires you to avoid driving or using machinery. ? Can cause constipation. You may need to take these actions to prevent or treat constipation: ? Drink enough fluid to keep your pee (urine) pale yellow. ? Take zwlw-zqx-rczwzid or prescription medicines. ? Eat foods that [...] treatment. Where to find more information ? [facility] (more content not included)...[facility] 05-17-2024 Evaluation note* Diagnosis Onset Date Resolution Status Admit Date Adult ADHD acuteFebruary 2024 10:57amBenign essential HTNacuteFebruary 2024 10:57am [facility] Work Phone: 1(869) 580-855601-09-2025 Evaluation note* Diagnosis Onset Date Resolution Status Admit Date Adult ADHD acuteJanuary 2024 9:46amBenign essential HTNacuteJanuary 2024 9:46am [facility]acuteB[facility] 2024 9:46am [facility] Work Phone: 1(570) 685-577612-20-2024 History of Present illness Narrative* Caitlyn Logan RN - 03/22/2024 1:59 PM EST [facility] received referral for BRCA testing. Referral faxed to genetics. documented in this encounterFirelands [facility]12-11-2024 Miscellaneous Notes* Result Encounter Note - Tatum Atkinson LPN - 03/13/2024 3:00 PM EST Pt notified and was told we could do the BRCA referral documented in this encounterSaint Luke's HospitalBebiemlgeg42-79-4616 Progress note* Result Encounter Note - Tatum Atkinson LPN - 03/13/2024 3:00 PM EST Pt notified and was told we could do the BRCA referral [facility] Work Phone: [phone] History of Present illness Narrative* Monique Cantrell [...] mg, Daily RT Blood Glucose Monitoring Suppl (MedSolutions Glucometer) w/Device kit 1 kit, Does not apply, Daily, Use four times daily to check FSBS. In the morning prior to breakfast & 1 hour after each meal for a total of 4times daily. Lancets (TrovitTouch Delica Plus Flsmer91B) misc MONOJECT 3CC SYRINGE 3 ML misc [...] Name Age of Onset Hypertension Maternal Grandfather [place] Heart disease Maternal Grandfather [place] Stroke Maternal Grandfather [place] Cancer Maternal Grandfather [place] Drug abuse Maternal Grandfather [place] Drug abuse Father Tyrese Diabetes Paternal Grandfather . SURGICAL HISTORY Past Surgical History: Procedure Laterality Date APPENDECTOMY 2006 SECTION, LOW TRANSVERSE 04/2019 SECTION, LOW TRANSVERSE 05/07/2017 CHOLECYSTECTOMY 2004 ENDOMETRIAL ABLATION 12/22/2023 IUD INSERTION 2011 Mirena [...] nursing note reviewed. Exam conducted with a cable engineer present. Vitals: Estimated body mass index is [...] of: Sanjeev Lopez DO documented in this encounterSaint Luke's [id number] History of Present illness Narrative* Alfonso Liang MD - 01/26/2024 5:57 PM EDT 01/26/2024 6:12 PM Opened this encounter to order [place] but talked to patient's pharmacy that it was an insurance issue and they are going to fulfill the prescription now. No new orders were placed. Dr. Price made aware. ALFONSO LIANG MD PGY4 Gen Surg Residnet documented in this encounterFirelands Regional Medical Center [facility] Campus10-13-2024 NoteEducation Materials Neurology Migraine Headache A migraine [...] these instructions at home: Medicines ? Take svmw-fqw-khrquir and prescription medicines only as told by [...] Headache and Migraine Patients (CHAMP): headachemigraine.org ? [place] Migraine Foundation: [email or web address].org ? National Headache Foundation: [...] your health care p (more content not included)...[facility] [id number] History of Present illness Narrative* Tatum Atkinson LPN - 01/03/2024 10:50 AM EDT * Moniqueashley Cantrell LPN - 01/03/2024 10:50 AM EDT [...] Oral, Daily RT Blood Glucose Monitoring Suppl (D-aisle411 Glucometer) w/Device kit 1 kit, Does not apply, Daily, Use four times daily to check FSBS. In the morning prior to breakfast & 1 hour after each meal for a total of 4times daily. diazePAM (Valium) 10 MG tablet TAKE 1 TABLET BY MOUTH PREOP Lancets (TrovitTouch Delica Plus Pzlwhn90Y) misc MONOJECT 3CC SYRINGE 3 ML misc [...] Name Age of Onset Hypertension Maternal Grandfather [place] Heart disease Maternal Grandfather [place] Stroke Maternal Grandfather [place] Cancer Maternal Grandfather [place] Drug abuse Maternal Grandfather [place] Drug abuse Father Tyrese Diabetes Paternal Grandfather . SURGICAL HISTORY Past Surgical History: Procedure Laterality Date APPENDECTOMY 2007 SECTION, LOW TRANSVERSE 04/2019 SECTION, LOW TRANSVERSE 05/07/2017 CHOLECYSTECTOMY 2004 ENDOMETRIAL ABLATION 12/22/2023 IUD INSERTION 2011 Mirena [...] nursing note reviewed. Exam conducted with a cable engineer present. Vitals: Estimated body mass index is [...] of: Sanjeev Lopez DO documented in this encounterSaint Luke's [id number] History of Present illness Narrative* Tracie Cunningham - 12/06/2023 11:30 AM EDT Reason for Appointment: Patient ID: Cindy Dumont is a 43 y.o. female who presents for Endometrial Biopsy and Pre-op Visit Patient presents today for Pre Op/Endometrial Biopsy appointment. Patient is scheduled to undergo Endometrial Ablation with Mariel on 12/22/[address] Lopez at [facility]. MEDICATIONS Current Outpatient Medications Medication [...] Name Age of Onset Hypertension Maternal Grandfather [place] Heart disease Maternal Grandfather [place] Stroke Maternal Grandfather [place] Cancer Maternal Grandfather [place] Drug abuse Maternal Grandfather [place] Drug abuse Father Tyrese Diabetes Paternal Grandfather . SURGICAL HISTORY Past Surgical History: Procedure Laterality Date APPENDECTOMY 2007 SECTION, LOW TRANSVERSE 04/2019 SECTION, LOW TRANSVERSE 05/07/2017 CHOLECYSTECTOMY 2005 IUD INSERTION 2011 Mirena PAP [...] nursing note reviewed. Exam conducted with a cable engineer present. Vitals: Estimated body mass index is [...] reviewed, and patient is to proceed to [facility] OR. Follow Up: Patient is to follow up between 1-2 weeks post op to assess proper healing and recovery from procedure. Documented by Monique Cantrell LPN on behalf of: Sanjeev Lopez DO documented in this encounterSaint Luke's [id number] History of Present illness Narrative* Monique Cantrell [...] to check FSBS. Blood Glucose Monitoring Suppl (D-aisle411 Glucometer) w/Device kit 1 kit, Does not [...] Name Age of Onset Hypertension Maternal Grandfather [place] Heart disease Maternal Grandfather [place] Stroke Maternal Grandfather [place] Cancer Maternal Grandfather [place] Drug abuse Maternal Grandfather [place] Drug abuse Father Tyrese Diabetes Paternal Grandfather [...] nursing note reviewed. Exam conducted with a cable engineer present. Vitals: Estimated body mass index is [...] of: Sanjeev Lopez DO documented in this encounterSaint Luke's [id number] NotePatient Education Materials Follows: Hypertension, Adult High [...] of wine (148 mL (more content not included)...[facility]opedic CenterLbzuqvma06-49-1881 History of Present illness Narrative* Rohit Metzger [...] take another few months to subside. Recommended axse-sfr-durpkgb pain relievers as needed. She is content [...] has any severe symptoms. documented in this encounterFirelands Regional Medical Center South Campus02-13-2024 History of Present illness Narrative* Rohit Metzger MD - 05/16/2023 1:45 PM EST [facility] Chief Complaint: [...] a snap. She initially followed up with [facility] Orth[facility] and was diagnosed with right [...] External notes reviewed: I reviewed notes from [facility] orthopaedics. Review of test/study reports: I reviewed an x-ray obtained of the right ring finger. There were no acute osseous abnormality suchas fracture dislocation. My personal interpretation of tests: I personally viewed and interpreted X-rays from [facility] as above. Xrays done in office today: None. Assessment: 1. [facility] [place], [place] 2. Finger injury, right, initial encounter - [facility] - [place], [place] Plan: I discussed treatment options with [...] progress with her flexion. documented in this encounterMiami Valley Hospitalamiando [facility] [id number] Evaluation note* Encounter Date Diagnosis Assessment Notes Treatment Notes Treatment Clinical Notes May, Adult ADHD (attentio n deficit hyperactivity disorder) (ICD-10 - F90.9) [facility] Other 02-05-2024 History of Present illness Narrative* CAIT Schultz - 05/08/2023 1:30 PM EST Images from the original note were not included. [facility] [address] [place] [phone] * CHART NOTE ? 05/08/2023 Patient: Karuna Dumont [id number] Provider: Jennie Colon CNP CHIEF COMPLAINT Low [...] Current and prior treatments: -Physical therapy/HEP: denies -md do resident urgent care: denies -Pain management: denies -Prior neurosurgical [...] 12/08/2016 Performed by Dannie Patel MD at [facility] OR SECTION 2018 CHOLECYSTECTOMY BEHAVORIAL [...] Right achilles: 2+ Left achilles: 2+ Right gas meter repairer: 2+ Left gas meter repairer: 2+ Right Andujar: absent Left Andujar: absent [...] record of the patient encounter. Inadvertent computerized varnishing unit operator errors related to syntax, spelling, homophones, and/or inaudibility may be present. Thank you for your referral. CAIT Perla CNP 05/08/23 1440 documented in this encounterFirelands Regional Medical Center South Campus02-01-2024 History of Present illness Narrative* Everett Okeefe, PRADEEP - 05/04/2023 10:00 AM EST Chief [...] for about 2 weeks. Went to [facility]09 due to having numbness in finger and unable to straighten it. Had XR at . On 03/13, pt went to [facility] and had another XR. Unable to get into hand specialist at [facility] until May 16. Continues to have soreness [...] PT is RT handed Prior [place]: [facility] 03/09/23, XR, Splint, [facility], XR 03/13/23, Ice, Heat, IBU, [facility] ALLERGIES: No Known Allergies HOME MEDICATIONS: Current Outpatient Medications Medication Instructions amphetamine-dextroamphetamine (Adderall) 20 MG tablet 1 TABLET ORALLY MID DAY 30 DAYS cyclobenzaprine (Flexeril) 10 MG tablet PLEASE SEE ATTACHED FOR DETAILED DIRECTIONS fluconazole (DIFLUCAN) 100 mg, Oral, Daily nystatin (Mycostatin) 111749 UNIT/GM powder APPLY TO AFFECTED AREA TOPICALLY [...] normal Pronation: normal Supination: normal Muscle Strength Car Pilot: 3/5 Other Erythema: absent Pulse: present Comments: [...] symptoms develop for requiring urgent evaluation. Everett Okeefe COMMUNITY AFFAIRS DIRECTOR-MAINFRAME APPLICATIONS DEVELOPER documented in this encounterSaint Luke's [id number] Evaluation note* Encounter Date Diagnosis Assessment Notes Treatment Notes Treatment Clinical Notes Apr, Adult ADHD (attentio n deficit hyperactivity disorder) (ICD-10 - F90.9) [place] [employer] Other 01-12-2024 History of Present illness Narrative* Kal Martinez APRN-MAINFRAME APPLICATIONS DEVELOPER - 04/14/2023 11:20 AM EST Images from [...] not had any complication. She is using rtag-qhf-fozhwjx pain patches. She denies any recent change [...] 12/08/2016 Performed by Dannie Patel MD at [facility] OR SECTION 2018 CHOLECYSTECTOMY Social [...] per her request. I have evaluated her [place] state reporting risk OARRS report overdose risk [...] follow-up. OAARS report reviewed via OARRS/MAPS in [place]. Discussed with the patient/caregiversafe and effective use [...] you individually. If you have been recommended tbvt-ntq-tgfttnc medications please use those medications as indicated [...] or approved for treating a specific patient. [employer]. and its affiliatesdisclaim any warranty or liability relating to this information or the use thereof. The use of thisinformation is governed by the Terms of Use, available at https://www.wolColorChipuwer.com/en/know/mmeikkrw-jfvajewakzrqn-rfpvs Copyright Copyright 2022 [employer]. and its affiliates and/or licensors. All rights reserved. OVER THE COUNTER PAIN CONTROL GUIDELINES To help control your pain a combination of lcab-onb-zasmnpl (OTC) pain medications can be used successfully [...] ulcers Do NOT take Tylenol along with [place] or Percocet (they already have Tylenol) Do [...] CAIT Song 04/14/23 1207 documented in this encounterPorter Medical CenterBRAND-YOURSELF01-12-2024 Instructions* Patient Instructions* CAIT Song - 04/14/2023 [...] you individually. If you have been recommended ihqd-nth-edvnpxw medications please use those medications as indicated [...] or approved for treating a specific patient. [employer]. and its affiliatesdisclaim any warranty or liability relating to this information or the use thereof. The use of thisinformation is governed by the Terms of Use, available at https://www.[employer].com/en/know/bhuwcvia-miyygmpqafttb-tgcxc Copyright Copyright 2022 [employer] and its affiliates and/or licensors. All rights reserved. OVER THE COUNTER PAIN CONTROL GUIDELINES To help control your pain a combination of csuz-miq-rfrvibk (OTC) pain medications can be used successfully [...] ulcers Do NOT take Tylenol along with [place] or Percocet (they already have Tylenol) Do NOT drink Alcohol while taking Tylenol If you have any questions please talk to your doctor or a pharmacist documented in this [facility]01-10-2024 Evaluation note* Encounter Date Diagnosis Assessment Notes Treatment Notes Treatment Clinical Notes Apr, Adult ADHD (attentio n deficit hyperactivity disorder) (ICD-10 - F90.9) [facility] Other 01-09-2024 Evaluation note* Encounter Date Diagnosis Assessment Notes Treatment Notes Treatment Clinical Notes Apr, Adult ADHD (attentio n deficit hyperactivity disorder) (ICD-10 - F90.9) [facility] Other 01-08-2024 Evaluation note* Encounter Date Diagnosis Assessment Notes Treatment Notes Treatment Clinical Notes Apr, Adult ADHD (attentio n deficit hyperactivity disorder) (ICD-10 - F90.9) [facility] Other 10-30-2023 Evaluation note* Encounter Date Diagnosis Assessment Notes Treatment Notes Treatment Clinical Notes Jan, Adult ADHD (attentio n deficit hyperactivity disorder) (ICD-10 - F90.9) [facility] Other 10-02-2023 Evaluation note* Encounter Date Diagnosis Assessment Notes Treatment Notes Treatment Clinical Notes Jan, Adult ADHD (attentio n deficit hyperactivity disorder) (ICD-10 - F90.9) Pt notes overall improvement on Vyvanse, but effects only are sustained for 4-6 hours. Agrees to try short acting adderall. She understands these are controlled substances and she should be careful with her rx. followup in 3 months or sooner if needed. [facility] Other 09-08-2023 Evaluation note* Encounter Date Diagnosis Assessment Notes Treatment Notes Treatment Clinical Notes Dec, Adult ADHD (attentio n deficit hyperactivity disorder) (ICD-10 - F90.9) [facility] Other 09-07-2023 Evaluation note* Encounter Date Diagnosis Assessment Notes Treatment Notes Treatment Clinical Notes Dec, Adult ADHD (attentio n deficit hyperactivity disorder) (ICD-10 - F90.9) [facility] Other 08-30-2023 Evaluation note* Encounter Date Diagnosis Assessment Notes Treatment Notes Treatment Clinical Notes Nov, Adult ADHD (attentio n deficit hyperactivity disorder) (ICD-10 - F90.9) ADHD GOALS: guide ADHD management with current treatment as prescribed; track progress of symptom management with daily/weekly log when possible and bring to next visit to discuss; return within agreed follow up timeframe; no barriers identified; Status: ongoing, possibly to last lifetime. Nov,utaneous candidiasis (ICD-10 - B37.2)Refilled diflucan. [facility] Other 07-11-2023 Hospital Discharge instructions* Discharge Instructions* RIZWAN Dietz CNP - 10/11/2022 8:08 PM EDT Please call and schedule a follow-up appointment with [facility]. Use an ice pack or bag [...] through Care Everywhere. * RICE: General Info (Filipino) * Ankle Sprain (Filipino) documented in this encounterBON [facility] Discharge instructions* Instructions* Radha Sanders MD - 08/19/2021 May use ice or heat, whichever feels better. May use [place] for pain. Prednisone as directed. Follow-up with [...] a follow up appointment THANK YOU!!! From [facility] and [facility] On behalf of the Emergency Department staff at [facility], I would like to thank you for giving us the opportunity to address your health care needs and concerns. We hope that during your visit, our service was delivered in a professional and caring manner. Please keep [facility] in mind as we walk with you [...] how we did during your visit at [email or web address] and let us know about your experience * Attachments The following attachments cannot be sent through Care Everywhere. * Herniated Disc (Filipino) [facility] [employer] Work Phone: evaluation note* Diagnosis Herniated lumbar intervertebral disc- Primary Displacement of lumbar intervertebral disc without myelopathy documented in this encounter [facility] [employer] Work Phone: evaluation note* Diagnosis Gastroenteritis- Primary Other and unspecified noninfectious gastroenteritis and colitis documented in this encounter [facility] [employer] Work Phone: evaluation note* Diagnosis Sprain of right ankle, unspecified ligament, initial encounter- Primary documented in this encounter [facility]ALSilent CircleSelect Medical Specialty Hospital - Columbusaluation noteNo InformationNomercy hospital [facility] [employer] Other Evaluation note* Diagnosis 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 Pain in finger of right hand Pain in soft tissues of limb documented in this encounter [facility] HealthcareEvaluation noteNo assessment information [facility] Work Phone: Evaluation note* Diagnosis Postop check Follow-up examination, following unspecified surgery Low ferritin level Other nonspecific findings on examination of blood documented in this encounter [facility]* Diagnosis Breast pain Mastodynia documented in this encounter [facility] HealthcareEvaluation [facility]* Diagnosis Encounter to discuss procedure Menorrhagia with regular cycle Decreased libido documented in this encounter [facility] HealthcareEvaluation note* Diagnosis Pre-op examination Menorrhagia with regular cycle Abnormal uterine bleeding (AUB) Pelvic pain Hormone disorder Unspecified endocrine disorder documented in this encounter [facility] HealthcareEvaluation note* Diagnosis Onset Date Resolution Status Admit Date Adult ADHD acuteJanuary 2024 9:46amWellness examinationacuteJanuary 2024 9:46am [facility] Work Phone: Evaluation note* Diagnosis Back pain, unspecified back location, unspecified back pain laterality, unspecified chronicity- Primary [facility]* Diagnosis Acute left-sided low back pain with left-sided sciatica- Primary [facility]* Diagnosis Lumbar radiculopathy, chronic- Primary Urinary incontinence without sensory awareness Incontinence without sensory awareness Sensory deficit, left Spinal stenosis of lumbar region with neurogenic claudication [facility]* Diagnosis Herniated lumbar intervertebral disc- Primary Displacement of lumbar intervertebral disc without myelopathy [facility]* Diagnosis 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 Finger injury, right, initial encounter [facility]* Diagnosis Herniated lumbar intervertebral disc- Primary Displacement of lumbar intervertebral disc without myelopathy Lumbar radiculopathy, chronic documented [facility]* Diagnosis 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 [facility]* Diagnosis Lumbar radiculopathy, chronic- Primary Herniated lumbar intervertebral disc Displacement of lumbar intervertebral disc without myelopathy [facility]* Diagnosis Hallux valgus of left foot- Primary Instability of left foot joint Tailor's bunion of left foot Acquired deformity of left toe 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 Equinus contracture of left ankle Left foot pain Pain in soft tissues of limb Vitamin D insufficiency documented in this encounter [facility] note* Diagnosis Well woman exam with routine gynecological exam Routine gynecological examination Breast cancer screening by mammogram documented in this encounter [facility] HealthcareEvaluation note* Diagnosis Hallux valgus of left foot- Primary Instability of left foot joint Tailor's bunion of left foot Acquired deformity of left toe 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 Equinus contracture of left ankle documented in this encounter [facility] HealthcareEvaluation note* Diagnosis Preop examination- Primary Unspecified pre-operative examination Hypertension, unspecified type documented in this encounter [facility] SystemEvaluation [facility]* Diagnosis S/P foot surgery- Primary Other postprocedural status Left foot pain Pain in soft tissues of limb Difficulty walking Difficulty in walking Instability of left ankle joint documented in this encounter [facility]* Diagnosis S/P foot surgery- Primary Other postprocedural status Left foot pain Pain in soft tissues of limb documented in this encounter [facility] HealthcareEvaluation note* Diagnosis S/P foot surgery- Primary Other postprocedural status Left foot pain Pain in soft tissues of limb documented in this encounter [facility] HealthcareEvaluation note* Diagnosis S/P foot surgery- Primary Other postprocedural status Left foot pain Pain in soft tissues of limb documented in this encounter [facility] HealthcareEvaluation note* Diagnosis S/P foot surgery- Primary Other postprocedural status 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 Acquired deformity of right toe Tailor's bunionette, right documented in this encounter [facility] HealthcareHistory general Narrative - Reported* Type Description Date Medical History PCOS/insulin resistant Medical HistoryPCOS (polycystic ovarian syndrome)Medical HistoryFrequent headachesMedical HistoryGestational diabetesMedical HistoryPrediabetesSurgical [id number] Glyfzricehppfsrqwfa7793Knkdxcch History c-[id number],2020Hospitalization Historysee surgical [facility] [employer] Other Hospital Discharge instructions* Attachments The following attachments cannot be sent through Care Everywhere. * Gastroenteritis (Filipino) documented in this encounterBON ABRAZO SCOTTSDALE CAMPUSScheduling Employee Scheduling Software Work Phone: InstructionsNot on filedocumented in this encounter [facility] SystemInstructionsNot on filedocumented in this encounter [facility] SystemInstructions* Attachments The following attachments cannot be sent through Care Everywhere. * Radiculopathy (Filipino) * Spinal stenosis (Filipino) documented in this encounterProNoland Hospital [facility] Health SystemInstructionsNot on file documented in this encounterProNoland Hospital Birmingham Health SystemInstructionsNot on file documented in this encounterProMediTrinity Health System SystemInstructionsNot on file documented in this encounterProLicking Memorial Hospital SystemInstructions* Pre-Procedure Instructions - Bessie Boswell RN - 01/18/2024 3:45 PM EDT Your surgery/procedure is [facility] at [facility] on 01/25/24 at 10 am Arrival Time 8 am [facility] Address: [address] [place] [address], [facility], [address] Park in the Emergency Center Parking lot. Report to the front desk lead in the Emergency/Surgery Registration lobby of the hospital. Notify your SURGEON if you develop any illness such as a cold, cough, fever, sore throat, vomiting or are hospitalized between now and your surgery. Please call Pre-Admission Clinic at [phone] if you have any questions prior to surgery. For questions the morning of surgery, call the Pre-op Department at [phone]. Medication Instructions (Do not stop your medications [...] like to schedule therapy at a [facility] facility, please call [phone] ([phone]). Do not use lotions, creams, powders, perfume, make up, cologne or after-shaves day of surgery. Remove ALL jewelry including wedding rings, body piercings, hair extensions that contain metal, nail bangladeshi, make-up, and contact lens. You may brush your teeth the morning of surgery, but do not swallow the water. Wear your dentures and partial plates to the hospital (no adhesive). Shower the night the before. If applicable, use the CHG (chlorhexidine gluconate) soap or wipes. Please be advised, [facility] has transitioned to a cashless payment [...] RIGHTS AND RESPONSIBILITIES As a patient at [facility], you have the right to: Receive medical care and be informed of who is taking care of you Be treated with dignity and respect Have a family member/career representative of choice and your physician notified of your admission Receive information and actively participate in decisions about your care and treatment Refuse care, treatment and services Decide who may provide your support and speak for you Access jew and spiritual services Participate in ethical issues [...] of hospital charges and payment methods Patient/patient career representative responsibilities are to: Provide information about health status to facilitate care, treatment and services Follow the treatment, plan, keep appointments and speak up when you do not understand the plan Respect the rights of other patients and healthcare personnel Follow organizational rules and regulations that support quality care and a safe environment Fulfill financial obligations as promptly as possible [facility] MustHaveMenus SystemInstructionsNot on filedocumented in this encounter [facility] MustHaveMenus SystemInstructionsNot on filedocumented in this encounter [facility] MustHaveMenus SystemInstructionsNot on filedocumented in this encounter [facility]isc[facility] Notes* Pre-Procedure Instructions - Bessie Boswell RN - 01/18/2024 3:45 PM EDT Your surgery/procedure is scheduled at [facility] on 01/25/24 at 10 am Arrival Time 8 am [facility] Address: [address] [place] [address], [facility], [address] [place] [address] in the Emergency Center Parking lot. Report to the front desk lead in the Emergency/Surgery Registration lobby of the hospital. Notify your SURGEON if you develop any illness such as a cold, cough, fever, sore throat, vomiting or are hospitalized between now and your surgery. Please call Pre-Admission Clinic at [phone] if you have any questions prior to surgery. For questions the morning of surgery, call the Pre-op Department at [phone]. Medication Instructions (Do not stop your medications [...] like to schedule therapy at a [facility] facility, please call [address] [place] [address] ([phone]). Do not use lotions, creams, powders, perfume, make up, cologne or after-shaves day of surgery. Remove ALL jewelry including wedding rings, body piercings, hair extensions that contain metal, nail bangladeshi, make-up, and contact lens. You may brush your teeth the morning of surgery, but do not swallow the water. Wear your dentures and partial plates to the hospital (no adhesive). Shower the night the before. If applicable, use the CHG (chlorhexidine gluconate) soap or wipes. Please be advised, [facility] has transitioned to a cashless payment [...] RIGHTS AND RESPONSIBILITIES As a patient at [facility], you have the right to: Receive medical care and be informed of who is taking care of you Be treated with dignity and respect Have a family member/career representative of choice and your physician notified of your admission Receive information and actively participate in decisions about your care and treatment Refuse care, treatment and services Decide who may provide your support and speak for you Access jew and spiritual services Participate in ethical issues [...] of hospital charges and payment methods Patient/patient career representative responsibilities are to: Provide information about health status to facilitate care, treatment and services Follow the treatment, plan, keep appointments and speak up when you do not understand the plan Respect the rights of other patients and healthcare personnel Follow organizational rules and regulations that support quality care and a safe environment Fulfill financial obligations as promptly as possible [facility] (n[facility]ative)* Consultation (Routine) - Pending ReviewSpecialtyDiagnoses / ProceduresReferred By ContactReferred To ContactPhysical Medicine and Rehabilitation Diagnoses Herniated lumbar intervertebral disc Lumbar radiculopathy, chronic Jennie Colon APRN-CNP [address] [facility] [address] [place] [address] Vishal Martin DO [address] [facility] [address] [place] [address] Referral IDStatusReasonStart DateExpiration DateVisits RequestedVisits [id number] Review Specialty Services Required / [facility] for referral (narrative)* Consultation (Routine) - Pending ReviewSpecialtyDiagnoses / ProceduresReferred By ContactReferred To ContactPain Medicine Diagnoses Lumbar radiculopathy, chronic Herniated lumbar intervertebral disc Jennie Colon APRN-RASHAUN [address] [place] [address] Davis Silva MD [address] [place] [address] Referral IDStatusReasonStart DateExpiration DateVisits RequestedVisits [id number] Review3/11/61380/ [facility] Advance Directives TypeDate RecordedPatient RepresentativeExplanationACP-Advance DirectiveACP-Power of Hot Head Machine Operator Advance Directive Response Recorded Date/ Time Advance Directives No December 7:20pm Date ActivatedDate NstlipyqvthYmsulysw94/24/2024 2:30 01/26/2024 2:17 PM Advance Directive Response Recorded Date/ Time Advance Directives No April 10, 2024 9:32am Advance Directive Response Recorded Date/ Time Advance Directives No April 10, 2024 10:32am Summary Purpose Family History Relationship Condition Age at Onset Recorded Date/T omkar grandparent Hypertension Unknown DeceasedUnknownAlzheimer's dementiaUnknown Chief Complaint and Reason for Visit Chief [...] with reg ular cycle/AUB Reason for Referral SpecialtyDiagnoses / ProceduresReferred By ContactReferred To ContactRadiology Diagnoses Lumbar radiculopathy, chronic Urinary incontinence without sensory awareness Sensory deficit, left Spinal stenosis of lumbar region with neurogenic claudication Procedures MR lumbar spine without contrast Jennie Colon, CAIT [address] [address] [facility] [address] [place] [address] Phone: [phone] Referral IDStatusReasonStart DateExpiration DateVisits RequestedVisits [id number] Review/ Additional Source Comments Reason for Visit (unrecogniz ed section and content) ReasonCommentsBack PainReasonCommentsAbdominal PainUpper mid began 0400 Sat. Thinks its from bad vegetablesEmesisDiarrheaReasonCommentsAnkle PainRolled right ankle on a tree eqphorRgdgrmYzikzinwZsaoue-zmYlyzcgRpnfxsxcNklq-vr VisitReason CommentsBreast ProblemReasonCommentsdiscuss procedurePt wants to discuss a hysterectomy vs. An ablationReasonCommentsEndometrial BiopsyPre-op VisitReason CommentsBack PainPatient states he has a herniated disk in her L5, S1. Patient does see [facility] spinal surgeon butcan't get in until late FebReasonComments ConsultLow back painReasonCommentsPainNew patient mallet finger on the right hand ring finger. Ongoing since injury 02/13/2023, states that her finger got caught on a towel that got caught in the washer and it twisted her finger up. States that she is still in a significant amount of pain. XR 03/13/2023Specialty Diagnoses / ProceduresReferred By ContactReferred To ContactHand Surgery / Orthopedic Surgery Diagnoses Finger injury, right, initial encounter Sprain of right ring finger, unspecified site of digit, initial encounter Nicole Lockwood, COMMUNITY AFFAIRS DIRECTOR-MAINFRAME APPLICATIONS DEVELOPER [address] [place] [address] Rohit Smith MD [address] [facility] [address] [place] [address] Referral IDStatusReasonStart DateExpiration DateVisits RequestedVisits [id number] Review Specialty Services Required /[id number]-kiPk ring mallet finge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 ReasonCommentsFoot PainPT is here today for BL foot pain, Lt is worse. Painful bunion and tailors bunion area. Painful forher constantly, she purchased new shoes.SS: 9[facility] VisitReasonCommentsPost Op#1Mandy Radha Dumont is a 43 y.o. female who presents for Post Op#1.ReasonCommentsPOV#2Mandy Radha Dumont is a 43 y.o. female who presents for Post Op#2.Date of surgery 08/08/2024: Patient continues 325mg aspirin, icing and advil prn.ReasonComanastasia Dumont is a 43 y.o. female who presents for Post Op#3.Date of surgery 08/08/2024: Patient continues 325mg aspirin, icing and advil prn.Kylie Dumont is a 43 y.o. 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 Continues icing and advil prn.ReasonCommentsPost-op Established patient presents today for 3 month post op check for the left foot. Patient reports doing well, no concerns. Ordered Prescriptions (unrec ognized section and content) PrescriptionSigDispensedRefillsStart DateEnd Date predniSONE (DELTASONE) 10 MG tablet Take 4 tablets by mouth once daily for 5 days 20 tablet / HYDROcodone-acetaminophen (NORCO) 5-325 MG per tablet Indications:Herniated lumbar intervertebral discTake 1 tablet by mouth every 6 hours as needed for Pain for up to 3 days. Intended supply: 3 days. Take lowest dose possible to manage pain 12 tablet /rescriptionSigDispensedRefillsStart DateEnd Date ondansetron (ZOFRAN-ODT) 4 MG disintegrating tablet Take 1 tablet by mouth 3 times daily as needed for Nausea or Vomiting 21 tablet Scheduled Active and Recently Administ ered Medications (unrecognized section and content) Medication Order/ morphine (PF) injection 10 mg (COMPLETED) 10 mg, IntraMUSCular, ONCE, 1 dose, On Natacha 08/19/21 at 1700 * 1655 (Given - Provider: Luiza Gerard RN - Comment: Medication would not scan at bedside. Verified with [facility] prior to administration.) Medication Order/ 0.9 % sodium chloride bolus (COMPLETED) 1,000 mL (8.32 mL/kg), IntraVENous, at 495.9 mL/hr, Administer over 121 Minutes, ONCE, On Mon01/03/22 at 1215, For 1 dose * 1215 (New Bag - Provider: Flor Garcia, ELVIS) * 1359 (Stopped - Provider: Flor Garcia RN) 0.9 % sodium chloride bolus 80 mL (0.666 mL/kg), IntraVENous, at 160 mL/hr, Administer over 0.5 Hours, ONCE, On Mon01/03/22 at 1245, For 1 dose * 1241 (Bolus from Bag - Provider: Burt Robles) ondansetron (ZOFRAN) injection 4 mg (COMPLETED) 4 mg, IntraVENous, ONCE, 1 dose, On Mon01/03/22 at 1215 * 1215 (Given - Provider: Flor Garcia RN) Medication Order/ iopamidol (ISOVUE-370) 76 % injection 75 mL (COMPLETED) 75 mL, IntraVENous, IMG ONCE PRN, 1 dose, Starting on Mon01/03/22 at 1233, Until Mon01/03/22 at 1240, Other * 1240 (Given - Provider: Burt Robles) sodium chloride flush 0.9 % injection 10 mL 10 mL, IntraVENous, PRN, Starting on Mon01/03/22 at 1233, Until Discontinued, Line Care * 1241 (Given - Provider: Burt Robles) Medication Order/ HYDROcodone-acetaminophen (NORCO) 5-325 MG per tablet 1 tablet (COMPLETED) 1 tablet, Oral, ONCE, 1 dose, On Mon10/11/22 at 2000, Maximum dose of acetaminophen is 4000 mg fromall sources in 24 hours. * 2052 (Given - Provider: Becky Toussaint RN) ketorolac (TORADOL) injection 30 mg (COMPLETED) 30 mg, IntraMUSCular, ONCE, 1 dose, On Mon10/11/22 at 1999, Do not administer for more than 5 days. * 2051 (Given - Provider: Becky Toussaint RN) Care Teams (unrecognized sec [...] Active Start: July 08, 2024 Ruthie Phillips MDAttending ProviderActiveStart: July 08, 2024 Team Status: Active Member Role Status Dates Johnathon Winter MD Primary Care Provider Active Start: July 22, 2024 Sanjeev Lopez DOAttending ProviderActiveStart: July 22, 2024 Team Status: Inactive Member Role Status Dates Johnathon Winter MD Primary Care Provide r, Attending Provider Active Start: July 29, 2024 End: July 29, 2024Team MemberRelationshipSpecialtyStart DateEnd Date Johnathon Winter MD PCP - GeneralFamily Isllpakw50/6/16Team MemberRelationshipSpecialtyStart DateEnd Date Johnathon Winter MD PCP - GeneralFamily Kuzrhyes37/6/16Team MemberRelationshipSpecialtyStart DateEnd Date Johnathon Winter MD PCP - GeneralFamily Wliodawk86/6/16Team MemberRelationshipSpecialtyStart DateEnd Date Johnathon Winter MD [address] [place] [address] PCP - GeneralFamily Medicine12/12/22 Team Status: Active Member Role Status Dates [...] Active Member Role Status Dates Sanjeev Lopez , DO Attending Provider Active Start : November 29, 2023 Team Status: Inactive Member Role Status Dates Sanjeev Lopez , DO Attending Provider Active Start : December 06, 2023 End: December 06, 2023Team MemberRelationshipSpecialtyStart DateEnd Date Johnathon Winter MD [address] [place] [facility] [address] PCP - GeneralFamily Medicine12/12/22Team MemberRelationshipSpecialtyStart DateEnd Date Johnathon Winter MD [address] [place] [facility] [address] PCP - GeneralFamily Medicine12/12/22Team MemberRelationshipSpecialtyStart DateEnd Date Johnathon Winter MD [address] [place] [facility] [address] PCP - GeneralFamily Medicine12/12/22Team MemberRelationshipSpecialtyStart DateEnd Date Johnathon Winter MD [address] [place] [facility] [place] [address] [facility] - [facility] Medicine12/12/22Team MemberRelationshipSpecialtyStart DateEnd Date Johnathon Winter MD [address] [place] [facility] [place] [address] PCP - GeneralFamily Medicine12/12/22Team MemberRelationshipSpecialtyStart DateEnd Date Johnathon Winter MD [address] [facility] [place] [address] PCP - GeneralFamily Medicine12/12/22Team MemberRelationshipSpecialtyStart DateEnd Date Johnathon Winter MD [address] [facility] [place] [address] PCP - Generalmily Medicine12/12/22Team MemberRelationshipSpecialtyStart DateEnd Date Johnathon Winter MD [address] [facility] [place] [address] PCP - Generalmily Medicine12/12/22Team MemberRelationshipSpecialtyStart DateEnd Date Johnathon Winter MD [address] [facility] [place] [address] PCP - Ojwukyk40/11/23Team MemberRelationshipSpecialtyStart DateEnd Date Johnathon Winter MD [address] [facility] [place] [address] PCP - [facility] Medicine12/12/22 Team Status: Active Member Role Status Dates [...] Start: April 11, 2024 End: April 11, 2024Team MemberRelationshipSpecialtyStart DateEnd Date Johnathon Winter MD [address] [place] [address] PCP - Rspbkcf59/11/23Team MemberRelationshipSpecialtyStart DateEnd Date Johnathon Winter MD [address] [place] [address] PCP - Yxosrpn33/11/23 Team Status: Active Member Role Status Dates Johnathon Winter MD Primary Care Provide r, Attending Provider Active Start: April 15, 2024 Team MemberRelationshipSpecialtyStart DateEnd Date Johnathon Winter MD [address] [place] [address] PCP - Hubdsxl06/11/23Team MemberRelationshipSpecialtyStart DateEnd Date Johnathon Winter MD [address] [place] [address] PCP - Xnzuzyk85/11/23Team MemberRelationshipSpecialtyStart DateEnd Date Johnathon Winter MD [address] [place] [address] PCP - Bcqhbst52/11/23Team MemberRelationshipSpecialtyStart DateEnd Date Johnathon Winter MD [address] [place] [address] PCP - Uubzkyc30/11/23Team MemberRelationshipSpecialtyStart DateEnd Date Johnathon Winter MD [address] [place] [address] PCP - Olgzwkw18/11/23Team MemberRelationshipSpecialtyStart DateEnd Date Johnathon Winter MD [address] [place] [facility] [place] [address] PCP - GeneralFamily Medicine12/12/22Team MemberRelationshipSpecialtyStart DateEnd Date Johnathon Winter MD [address] [facility] [place] [address] PCP - GeneralFamily Medicine12/12/22Team MemberRelationshipSpecialtyStart DateEnd Date Johnathon Winter MD [address] [facility] [place] [address] PCP - GeneralFamily Medicine12/12/22Team MemberRelationshipSpecialtyStart DateEnd Date Johnathon Winter MD [address] [facility] [place] [address] PCP - GeneralFamily Medicine12/12/22Team MemberRelationshipSpecialtyStart DateEnd Date Johnathon Winter MD [address] [facility] [place] [address] PCP - GeneralFamily Medicine12/12/22Team MemberRelationshipSpecialtyStart DateEnd Date Johnathon Winter MD [address] [facility] [place] [address] PCP - Dudosgx73/11/23Team MemberRelationshipSpecialtyStart DateEnd Date Johnathon Winter MD [address] [facility] [place] [address] PCP - GeneralFamily Medicine12/12/22Team MemberRelationshipSpecialtyStart DateEnd Date Johnathon Winter MD [address] [facility] [place] [address] PCP - GeneralFamily Medicine12/12/22Team MemberRelationshipSpecialtyStart DateEnd Date Johnathon Winter MD [address] [facility] [place] [address] PCP - GeneralFamily Medicine12/12/22Team MemberRelationshipSpecialtyStart DateEnd Date Johnathon Winter MD [address] [facility] [place] [address] PCP - GeneralFamily Medicine12/12/22Team MemberRelationshipSpecialtyStart DateEnd Date Johnathon Winter MD [address] [facility] [place] [address] PCP - Cmgsugd08/11/23Team MemberRelationshipSpecialtyStart DateEnd Date Johnathon Winter MD [address] [facility] [place] [address] PCP - GeneralFamily Medicine12/12/22Team MemberRelationshipSpecialtyStart DateEnd Date Johnathon Winter MD [address] [place] [facility] [place] [address] PCP - GeneralFamily Medicine12/12/22Team MemberRelationshipSpecialtyStart DateEnd Date Johnathon Winter MD [address] [place] [facility] [address] PCP - GeneralFamily Medicine12/12/22Team MemberRelationshipSpecialtyStart DateEnd Date Johnathon Winter MD [address] [place] [facility] [place] [address] PCP - GeneralFamily Medicine12/12/22Team MemberRelationshipSpecialtyStart DateEnd Date Johnathon Winter MD [address] [place] [facility] [place] [address] PCP - GeneralFamily Medicine12/12/22Team MemberRelationshipSpecialtyStart DateEnd Date Johnathon Winter MD [address] [place] [facility] [place] [address] PCP - GeneralFamily Medicine12/12/22Team MemberRelationshipSpecialtyStart DateEnd Date Johnathon Winter MD [address] [place] [facility] [place] [address] PCP - GeneralFamily Medicine12/12/22Team MemberRelationshipSpecialtyStart DateEnd Date Johnathon Winter MD [address] [place] [facility] [place] [address] PCP - GeneralFamily Medicine12/12/22Team MemberRelationshipSpecialtyStart DateEnd Date Johnathon Winter MD [address] [place] [facility] [place] [address] PCP - GeneralFamily Medicine12/12/22 INFORMATION SOURCE (unrecogn ized section and content) DATE CREATED AUTHOR 07/17/2022 [facility] DATE CREATED AUTHOR AUTHOR'S ORGANIZ ATION 10/12/2022 [facility] DATE CREATED AUTHOR AUTHOR'S ORGANIZ ATION 06/12/2023 [facility] DATE CREATED AUTHOR AUTHOR'S ORGANIZ ATION 12/14/2023 [facility] DATE CREATED AUTHOR AUTHOR'S ORGANIZ ATION 01/26/2024 [facility] DATE CREATED AUTHOR AUTHOR'S ORGANIZ ATION 07/09/2024 [facility] DATE CREATED AUTHOR AUTHOR'S ORGANIZ ATION 11/01/2024 [facility] DATE CREATED AUTHOR AUTHOR'S ORGANIZ ATION 01/11/2025 [facility] DATE CREATED AUTHOR AUTHOR'S ORGANIZ ATION 01/17/2025 [facility] DATE CREATED AUTHOR AUTHOR'S ORGANIZ ATION 01/30/2025 [facility] EPIC Goals (unrecognized section and content) [...] BE BASED ON THE PRIMARY CLINICAL RECORDS. [facility] [employer] provides no warranty or guarantee of the accuracy or completeness of information in this document.
--- NOTE | 2025-02-05 09:01 | PM.CN ---
Consult Note: HPI Data of Consult Patient: known to practice within the last 3 years Requesting Physician: Minnie Johnson NP Primary Care Provider: Radha Sanchez MD Consult Narrative Reason for consult: low back pain Narrative: Karuna Dumont a pleasant 44 year old female presents for evaluation and management of chronic low back pain. Historically failed formal PT greater than 6 weeks and within the last 12 months she has failed HEP > 6 weeks without benefit, failed tylenol, motrin, and sulindac. No new injury or falls. pain today 4-5/10 sharp shooting increasing to 10/10 at times. noting severe pain in low back and BLE with numbness tingling to BLE. noting pain worse since last visit. cc:: CC: Minnie Johnson NP Review of Systems ROS Musculoskeletal Reports: back pain and extremity pain PFSH [facility] Medical History (Updated 01/16/25 @ 10:53 by Minnie Johnson NP) DDD (degenerative disc disease) Back pain ?M54.9 - Dorsalgia, unspecified (ICD-10) Anemia ?D64.9 - Anemia, unspecified (ICD-10) Panic attacks ?F41.0 - Panic disorder [episodic paroxysmal anxiety] (ICD-10) Abnormal uterine bleeding ?N93.9 - Abnormal uterine and vaginal bleeding, unspecified (ICD-10) Menorrhagia ?N92.0 - Excessive and frequent menstruation with regular cycle (ICD-10) Pelvic pain ?R10.2 - Pelvic and perineal pain (ICD-10) Diverticulosis ?K57.90 - Diverticulosis of intestine, part unspecified, without perforation or abscess without bleeding (ICD-10) IBS (irritable bowel syndrome) ?K58.9 - Irritable bowel syndrome without diarrhea (ICD-10) PCOS (polycystic ovarian syndrome) ?E28.2 - Polycystic ovarian syndrome (ICD-10) Cervical cerclage suture present ?O34.30 - Maternal care for cervical incompetence, unspecified trimester (ICD-10) White coat syndrome with high blood pressure without hypertension ?R03.0 - Elevated blood-pressure reading, without diagnosis of hypertension (ICD-10) Migraines ?G43.909 - Migraine, unspecified, not intractable, without status migrainosus (ICD-10) Metabolic syndrome ?E88.810 - Metabolic syndrome (ICD-10) Insulin resistance ?E88.819 - Insulin resistance, unspecified (ICD-10) History of PCOS ?Z87.42 - Personal history of other diseases of the female genital tract (ICD-10) ADHD ?F90.9 - Attention-deficit hyperactivity disorder, unspecified type (ICD-10) Surgical History History of myringotomy ?Z98.890 - Other specified postprocedural states (ICD-10) History of appendectomy ?Z90.49 - Acquired absence of other specified parts of digestive tract (ICD-10) History of breast biopsy ?Z98.890 - Other specified postprocedural states (ICD-10) S/P breast biopsy, left ?Z98.890 - Other specified postprocedural states (ICD-10) H/O tubal ligation ?Z98.51 - Tubal ligation status (ICD-10) H/O section ?Z98.891 - History of uterine scar from previous surgery (ICD-10) History of cervical cerclage ?Z98.890 - Other specified postprocedural states (ICD-10) Status post appendectomy ?Z90.49 - Acquired absence of other specified parts of digestive tract (ICD-10) Hx of cholecystectomy ?Z90.49 - Acquired absence of other specified parts of digestive tract (ICD-10) Family History Other Cancer Delayed recovery from anesthesia Family history of diabetes mellitus Family history of myocardial infarction Social History Within the past year, how often did you have a drink containing alcohol: never Score interpretation: A score less than 3 is consistent with normal alcohol consumption. Smoking status: Never smoker Non-prescribed substance use: denies use Highest level of school completed/degree received: some college, no degree Meds Home Medications and Allergies Home Medications ?Medication ?Instructions ?Recorded ?Confirmed ?Type tirzepatide 10 mg/0.5 mL 10 mg subcut QWEEK 12/12/23 01/16/25 History subcutaneous pen injector (Mounindianaro) amlodipine 5 mg tablet 5 mg PO DAILY 01/06/25 01/16/25 History hydroxyzine HCl 25 mg tablet 25 mg PO DAILY 01/06/25 01/16/25 History lisdexamfetamine 40 mg capsule 40 mg PO DAILY 01/06/25 01/16/25 History (Vyvanse) losartan 100 mg tablet 100 mg PO DAILY 01/06/25 01/16/25 History metoprolol succinate 50 mg 50 mg PO DAILY 01/06/25 01/16/25 History tablet,extended release 24 hr viloxazine 200 mg capsule,extended 400 mg PO DAILY 01/06/25 01/16/25 History release 24 hr (Qelbree) sulindac 200 mg tablet 200 mg PO BID 01/16/25 01/16/25 History Allergies Allergy/AdvReac Type Severity Reaction Status Date / Time adhesive tape Allergy Rash Verified 12/12/23 11:11 topiramate Allergy eyeballs Verified 12/12/23 11:11 feel like hard boiled eggs Exam Constitutional Documenting provider has reviewed patient's vital signs: yes Common normals: no apparent distress, oriented x3, healthy appearing, alert and well nourished General appearance: cooperative HENMT Common normals: normocephalic, hearing grossly normal bilaterally and moist oral mucous membranes Head and scalp: normocephalic Eye Common normals: PERRL Pupil: PERRL Neck & C-Spine Common normals: full ROM General: normal visual inspection Chest Common normals: inspection of chest normal Respiratory Common normals: normal respiratory effort, no retractions and no use of accessory muscles Back & Pelvis Lumbar spine/lower back: ROM limited, pain with ROM, straight leg raise positive right and straight leg raise positive left Other: sensation intact BLE pain following bilateral L5/S1 bilateral sij positive renae(patricks), gaenslens, thigh thrust, compression test strength 5/5 in BLE with intermittent heaviness weakness to BLE Neuro Common normals: oriented x3 Sensorium/orientation: alert Psych Common normals: mental status grossly normal, thought process normal, cooperative, affect normal, speech normal and activity/motor behavior normal Speech: normal speech Thought process: normal thought process Results Additional Findings Additional findings: If on a controlled substance or opioids, I have checked an [place] report on this patient and there are no aberrancies noted in the prescribing history.??If on a controlled substance or opioid a drug screen was completed and reviewed within the last year, and if there has not been a drug screen completed we ordered one today to monitor higher risk, state monitored pain medication use. As part of providing excellent, safe, comprehensive care, the following was completed at our patient's visit: 1. A medication reconciliation and review to ensure accurate knowledge of current/active medications, including asking our patients to inform us about any tley-igb-xnfauqt medications or herbal remedies/nutritional supplements/alternative remedies. 2. A review to specifically ensure our patients have had annual screening for screening for depression, screening for tobacco use, and screening for unhealthy alcohol use. For concerning screenings had a discussion with the patient, provided patient education, and recommended follow-up with primary care provider when appropriate. If patient noted with a risk of falling, they received education on strength, gait, and balance training to prevent future risk of falling. Portions of this note may have been carried over from the previous visit and updated as appropriate. Please note this office utilizes paper charting in addition to the electronic medical record. A list of current medications, vitals, and PMH is available there as the clinical staff outside of myself do not have access to [employer] charting during the clinic day operations. As part of providing quality comprehensive care the current medications, vitals, and PMH were reviewed in the paper chart. Assessment and Plan Assessment and Plan (1) Lumbar stenosis with neurogenic claudication: Assessment and Plan: The patient has had over 3 months of moderate to severe low back and BLE pain with functional impairment and inadequate response to conservative care including NSAIDS (unless there are contraindication such as concurrent blood thinners), multiple oral or topical pain medications, and home exercise program/physical therapy.? Patient has completed >6 weeks of guided home exercise program and/or formal physical therapy program without relief of their symptoms.? I have reviewed the imaging of the lumbar spine and no red flags were identified.? The Oswestry Disability Index was completed, and the patient scored a 48% (2) Lumbar disc displacement without myelopathy: (3) Sacroiliitis: (4) Degenerative disc disease (DDD) of lumbar region with discogenic back pain and leg pain: Plan lumbar mri reviewed. [facility] due to persistent pain and worsening MRI findings compared to prior proceed with bilateral L5-S1 TFESI under fluoroscopy dc mobic, start diclofenac 50mg bid prn pain take with food f/u with pcp regarding htn, asymptomatic at this time. pt took BP medications less than 1 hour ago f/u after TFESI
== END 2025-02-05 08:34 | disposition home or self-care (01) ==
LOC: PM 08:33
PROVIDERS: PCP Family Medicine; Visit Provider Nurse Practitioner
DX: M48.062 Spinal stenosis, lumbar region with neurogenic claudication (principal); M51.26 Other intervertebral disc displacement, lumbar region; M51.362 Other intervertebral disc degeneration, lumbar region with discogenic back pain and lower extremity pain
CPT/HCPCS: G0463

== ENCOUNTER 2025-02-24 11:23 | Day surgery (SDC) | payer BC, SELFPAY ==
--- OUTSIDE RECORDS SUMMARY | 2025-02-24 11:29 | XMS_ITS | Clinical Summary ---
Author Organization [employer] tem Address [id number] [address] [place] [address] Care Team Providers Care Media Marketing Director Name Role Phone Radha Sanchez MD Primary Care Provider [phone] Allergies Active AllergyReactionsCriticalityNoted ThhgAqiprecyWtdcephbNlefLrfajx37/24/2024 Pt states allergic to paper tape TopiramateSwelling,Other [...] mg total) by mouth in the morning.6Active jsydivbnxqyd-bey-wcag-FA-vit K 18 mg iron-400 mcg-25 mcg tablet [...] mg under the skin every 7 days.Active Active Problems ProblemNoted DateDiagnosed DatePanniculitis affecting back01/25/2024Generalized anxiety ahxkpghe25/02/2024ttention deficit hyperactivity disorder (ADHD), predominantly inattentive type11/22/2023Mallet deformity of right ring finger 05/16/2023reast pain10/06/2022Frequent myyaziiqn99/06/2023Hallux valgus (acquired), left foot10/06/2022Insulin /06/2023Labial cyst10/06/2022 Elfqkewiazu78/06/2023olycystic bqemfoj0310/06/2022Weight gain10/06/2022History of multiple zkkdrmkulbnx71/31/9746Aueatpbzrw26/31/2022Neurogenic ryibcdk6712/01/2021 Psychophysiological ofakjkiz15/31/2022Migraine without aura and without status migrainosus, not ndswnwbcghi93/31/2022Vitamin B12 hhhngtujoo88/31/2022DDD (degenerative disc disease), sfojps162Decreased movements in third pnzkjdxbo11/06/2020History of PCOS01/24/2017Class 3 obesity in adult01/24/2017 Insulin controlled gestational diabetes mellitus (GDM) in second trimester 01/24/2017BMI 45.0-49.9, adult10/17/2016History of spontaneous 09/05/2016History of qvnndytz93/05/2017 Encounters * This document contains information received from the source organization and may not represent a complete record from that organization. DateTypeDepartmentCare DkvdHitobyfyqph11/09/2025Orders Only [facility] [address] [place] [id number] External, Scanning Provider Pain (Primary Dx)02/07/2025Telephone [facility] [address] [place] [phone] Ky Nix MD 02/03/2025 9:35 AM ESTAncillary Procedure [facility] [address] [place] [phone] Pain01/15/20258293Ncyibg69/03/2025Orders Only [facility] [address] [place] [phone] Jo Meyer, BACK UP SCAN COORDINATOR-PAYROLL CLERK from Last 3 Months Family History Medical HistoryRelationNameCommentsCancerMaternal GrandfatherstomachHeart attack Maternal GrandfatherHeart diseaseMaternal GrandfatherHypertensionMaternal GrandfatherStrokeMaternal GrandfatherThyroid diseaseMaternal Grandfather Alzheimer's diseaseMaternal GrandmotherHypertensionMaternal GrandmotherIrritable bowel syndromeMaternal GrandmotherIrritable bowel syndromeMotherThyroid disease MotherRelationNameStatusCommentsFatherAliveMaternal GrandfatherDeceasedMaternal GrandmotherDeceasedMotherAlive Social History Tobacco UseTypesPacks/DayYears UsedDateSmoking Tobacco: NeverSmokeless Tobacco: Never Tobacco Cessation:Counseling Given: Not Answered Alcohol UseStandard Drinks/WeekCommentsNo0 (1 standard drink = 0.6 oz pure alcohol)[facility] UtilitiesAnswerDate RecordedIn the past 12 months has the electric, gas, oil, or water company threatened to shut off services in your home?No 01/26/2024HQ-2AnswerDate RecordedTotal Tvtyd4372PRAPARE - Transportation AnswerDate RecordedIn the past 12 [...] as a part of a household?No 01/26/2024hildcareAnswerDate BsowqazsCwnhirteoWezsoyx99/12/2019EmploymentAnswer Date ObxkwldwEqlovswupxVioiqtg21/12/2019Hunger ScreeningAnswerDate Recorded Within the past 12 months we worried whether our food would run out before we got money to buy more.Never True10/21/2024Within the past 12 months the food we bought just didn't last and we didn't have money to get more.Never True 10/21/2024Purpose - LifeAnswerDate RecordedPurpose and direction in lifeUnknown 1CommentsNoSex and Gender InformationValueDate RecordedSex Assigned at BirthNot on fileLegal SdpFltaaz71/06/2015 12:08 PM EDTGender IdentityNot on fileSexual OrientationNot on file Last Filed Vital Signs Vital SignReadingTime TakenCommentsBlood Jsgyjtwb318/9001/15/2025 3:52 PM EDT Xknyh37693/15/2025 3:52 PM CGEGvljcbiqyyl72.8 ??C (98.2 ??F)08/08/2024 10:20 AM EDTRespiratory Sdlp979408/08/2024 10:50 AM EDTOxygen Rbpzmzbwfi40%08/08/2024 10:50 AM EDTInhaled Oxygen Concentration--Egijwc29.2 kg (190 lb)08/08/2024 6:45 AM EDT Rweiqu757.1 cm (5' 5 )08/08/2024 6:45 AM EDTBody Mass Index31.62008/08/2024 6:45 AM EDT Plan of Treatment Health MaintenanceDue DateLast DoneCommentsDepression Quvtluwor48/30/1995Adult BMI Follow Up Plan2000DTaP,Tdap and Td Vaccines (1 - Tdap)2001 Influenza Abqpvto5312/02/2024dult BMI Flxpwghmw03/11/2024Tobacco Dttrblrav70Pap Smear Goals GoalPatient Goal TypeAssociated ProblemsRecent ProgressPatient-Stated?Author have better pain control Azeb Harry RN Note: Evaluation of progress towards goal: johns removal; pain management Medical Devices ImplantedTypeAreaManufacturerDevice IdentifierShelf Expiration DateModel / Serial / LotStaple [id number] Str Grt Wht Jaws Ntnl Bn Rpl [id number] - Sna - [id number] Implanted:Qty: 1 on 08/08/2024 by Georgi Carreon DPM at [facility] ImplantLeft: FootPARAGON 28 10/15/2028 [id number] / NA / [id number] 91f84le Str Grt Wht Jaws Ntnl Bn Rpl [id number] - Sna - [id number] Implanted:Qty: 1 on 08/08/2024 by Georgi Carreon DPM at [facility] ImplantLeft: FootPARAGON 28 05/31/2028 [id number] / NA / [id number] Bn 13mm 2mm Bite Mnstr St Ns - Sna - [id number] Implanted:Qty: 1 on 08/08/2024 by [facility]i [facility]reon DPM at [facility] FREMONTScrewLeft: FootPARAGON 28 [id number] / NA / NAScrew Bn 10mm 2mm Hd Mn-Mnstr St Ns - [id number] Implanted:Qty: 2 on 08/08/20[facility] FootPARAGON 28 [id number] / / ExplantedTypeAreaManufacturerDevice IdentifierShelf Expiration DateModel / Serial / LotWire Fx Krsh 1.6mm 100mm 1 End Troc Tip Smth - [id number] [facility] Im[facility]: FootPARAGON 28 [id number] / / Wire Fx Krsh 1.6mm 150mm 1 End Troc Tip Smth Rpl [id number] - [id number] Explanted:Qty: 1 on 08/08/2024 at [facility] ImplantLeft: FootPARAGON 28 [id number] / / Wire Fx Krsh .9mm 150mm 1 End Troc Pnt Smth Ns - [id number] Explanted:Qty: 2 on 08/08/2024 by Georgi Carreon DPM at [facility] ImplantLeft: FootPARAGON 28 [id number] / / Guidewire Orth 1.6mm 150mm 2 Blnt Smth - [id number] Explanted:Qty: 1 on 08/08/2024 at [facility] ImplantLeft: FootPARAGON 28 [id number] / / Screw Bn 12mm 2mm Hd Mn-Mnstr St Ns - Sna - [id number] Explanted:Qty: 1 on 08/08/2024 [facility] FootPARAGON 28 [id number] / NA / NA Procedures Procedure NamePriorityDate/TimeAssociated DiagnosisCommentsMR LUMBAR SPINE WO KZVLFhqyvym32/03/2025 9:35 AM EST Pain from Last 3 Months Results * MR lumbar spine without contrast (02/03/2025 9:35 AM EST)Specimen (Source) Anatomical Location / LateralityCollection Method / VolumeCollection Time Received Time Narrative Authorizing ProviderResult TypeResult StatusScanning Provider ExternalIMG MRI ORDERABLESFinal Result from Last 3 Months Insurance Advance Directives * Full Code (Latest Code Status on File) Date ActivatedDate TivvnsuicwrIyjwgnxz71/24/2024 2:30 01/26/2024 2:17 PM Care Teams Team MemberRelationshipSpecialtyStart DateEnd Date Radha Sanchez MD [address] [place] [address] PCP - Nadncph37/11/23
--- OUTSIDE RECORDS SUMMARY | 2025-02-24 11:29 | XMS_ITS | Clinical Summary ---
Author Organization [facility] Healthcare Address [address] [place] [address] Care Team Providers Care Work Environment Safety Inspector Name Role Phone Radha Sanchez MD Primary Care Provider [phone] Allergies Active AllergyReactionsCriticalityNoted DateCommentsTopiramateSwellingLow 12/19/2013 Medications MedicationSigDispense QuantityRefillsLast FilledStart DateEnd DateStatus Alcohol Swabs (B-D SINGLE USE SWABS REGULAR) pads 4Active Lancets (OneTouch Delica Plus Vkfeen68U) misc 4Active MONOJECT 3CC SYRINGE 3 ML [...] up to 10 days 30 tablet 5Active Mounjaro 12.5 MG/0.5ML solution auto-injector Indications:Insulin resistance,Weight gaininject 0.5 milliliters UNDER THE SKIN ONCE WEEKLY 2 mL 5Active metoprolol-hydroCHLOROthiazide (Lopressor HCT) 50-25 MG tablet 5Active estradiol (Climara) 0.025 MG/24HR Indications:Hormone imbalancePlace 1 patch over 7 days on the skin 1 (one) time per week 4 patch 5Active progesterone (Prometrium) 100 MG capsule Indications:Hormone imbalanceTake 1 capsule (100 mg) by mouth Daily 30 capsule 5Active ondansetron ODT (Zofran-ODT) 4 MG disintegrating tablet Indications:NauseaDissolve one tablet on tongue EVERY 6 HOURS NEEDED FOR NAUSEA AND VOMITING 30 tablet 5Active ondansetron ODT (Zofran-ODT) 4 MG disintegrating tablet Indications:NauseaDissolve one tablet on tongue EVERY 6 HOURS NEEDED FOR NAUSEA AND VOMITING 30 tablet Discontinued Active Problems ProblemNoted DateDiagnosed DateBreast pain10/06/2022hronic migraine without aura, not intractable, without status bjzyqihhghh55/06/2023Frequent headaches 10/06/2022Hallux valgus (acquired), left foot10/06/2022Insulin resistance 10/06/2022Labial cyst10/06/20221169Pdmqralcwxp10/06/2023Morbid unfjhav1510/06/2022 Polycystic hlkbzzp2810/06/2022Weight gain10/06/2022 Encounters DateTypeDepartmentCare ThkiLvhxgkrqpjk85/23/2025Refill [facility] [place] [address] Sanjeev Lopez, DO Tenxev2802/03/2025linisync Result Encounter [facility] External Department Unsolicited Sanjeev Lopez DO 01/31/2025Telephone [facility] [address] [place] [phone] Natalia Choi, ESPERANZA 01/29/2025 9:25 AM EDTAncillary Procedure [facility] [address] [place] [id number] 01/29/2025 9:00 AM EDTOffice Visit [facility] [address] [place] [id number] Georgi Carreon, NOE S/P foot surgery (Primary Dx); 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; Acquired deformity of right toe; Tailor's bunionette, right01/29/2025amboo flowsheet [facility] [address] [place] [id number] Georgi Carreon DPM 01/29/20257203Fauqdl58/27/3792Xetouu68/22/4032Lbmdyh34/09/2025Telephone [facility] [address] [place] [address] Natalia Choi, ESPERANZA 12/27/2024Refill [facility] [address] [place] [address] Sanjeev Lopez DO Insulin resistance; Weight gain12/24/2024Telephone [facility] [address] [place] [address] Natalia Choi, ESPERANZA from Last 3 Months Family History Medical HistoryRelationNameCommentsAlcohol [...] teaCommentsNoSex and Gender InformationValueDate RecordedSex Assigned at RuajqRvucoq27/21/2023 8:59 AM EDTLegal FqlWvoept13/15/2023 7:26 PM EDTGender TwupxtgdHulfsi38/21/2023 8:59 AM EDTSexual OrientationStraight 09/21/2022 8:59 AM EDT Last Filed Vital Signs Vital SignReadingTime TakenCommentsBlood Phjgbroi115/8204 2:12 PM EDT Ztcwj721508/02/2023 8:52 AM ZLQAtxhmkzudbd31.5 ??C (97.7 ??F)08/02/2023 8:52 AM EDTRespiratory Emwt413608/02/2023 8:52 AM EDTOxygen Bphpfmtkev26%08/02/2023 8:52 AM EDTInhaled Oxygen Concentration--Esnuwi23.2 kg (190 lb)01/29/2025 9:00 AM EDT Dbqayo226.1 cm (5' 5 )01/29/2025 9:00 AM EDTBody Mass Index31.6201/29/2025 9:00 AM EDT Plan of Treatment DateTypeDepartmentCare Team (Latest Contact Info)Assiygijafp02/28/2026 1:00 PM EDTOffice Visit [facility] [address] [place] [address] Sanjeev Lopez DO [address] [place] [address] Procedures Procedure NamePriorityDate/TimeAssociated DiagnosisCommentsTESTOSTERONE FREE AND GBSGXZjdurok84/07/2025 10:44 AM EST Hormone disorder Insulin resistance Weight gain TESTOSTERONE, ZJJOWzcsyvu14/07/2025 10:44 AM EST Hormone disorder Insulin resistance Weight gain THYROID PEROXIDASE RZQOTRBVBYThkjlqr24/07/2025 10:44 AM EST Hormone disorder Insulin resistance Weight gain THYROGLOBULIN OWNMJLZROWRnrjdbh05/07/2025 10:44 AM EST Hormone disorder Insulin resistance Weight gain OWPRTRLOJUZNWIequvcw44/07/2025 10:44 AM EST Hormone disorder Insulin resistance Weight gain CXENAFYPDMXLDwivxpx34/07/2025 10:44 AM EST Hormone disorder Insulin resistance Weight gain T3, PLQFGAUDxakjxn34/07/2025 10:44 AM EST Hormone disorder Insulin resistance Weight gain SEROTONIN WIITIUnqxheu79/07/2025 10:44 AM EST Hormone disorder Insulin resistance Weight gain SEX HORMONE BINDING FYKOPRETWotdswy53/07/2025 10:44 AM EST Hormone disorder Insulin resistance Weight gain DHEA UVJXMJTMoorprm86/07/2025 10:44 AM EST Hormone disorder Insulin resistance Weight gain LVAXAZFQDJniyqgf42/07/2025 10:44 AM EST Hormone disorder Insulin resistance Weight gain CORTISOL, FREE DIALYSIS, INYNJblarbs14/03/2025 9:13 AM EST TBH XNKYXCIWNPETSFerwrdf14/03/2025 9:13 AM EST ALL C-BYPWNUQBfcmejy66/03/2025 9:13 AM EST [facility] CFUHFBVWefqnlp45/03/2025 9:13 AM EST [facility] JOFJBOPYcmgsqi44/03/2025 9:13 AM EST MLR HEMOGLOBIN W4GZskldck25/03/2025 9:13 AM EST ALL THYROXINE (T4) KYCJWcphmkc89/03/2025 9:13 AM EST CCF JDSEOVUAFwxrvkn43/03/2025 9:13 AM EST ALL THYROID STIM ZMBMDNSUbvsdny18/03/2025 9:13 AM EST ALL THYROXINE (T4)Vwigypf7102/03/2025 9:13 AM EST ALL T3 QCXKYwyaytt80/03/2025 9:13 AM EST TBH GLUCOSE MIYCSAbpiisu23/03/2025 9:13 AM EST XR FOOT 3+ VIEWS ITCDEsgxdsq60/29/2025 9:23 AM EDT S/P foot surgery from Last 3 Months Results * TESTOSTERONE, FREE (02/07/2025 10:44 AM EST) Narrative Authorizing ProviderResult TypeResult StatusCorey Jessica DOLAB BLOOD ORDERABLES Final ResultPerforming OrganizationAddressCity/State/ZIP CodePhone Number EXTERNAL LAB * Sex hormone binding globulin (02/07/2025 10:44 AM EST)Specimen (Source) Anatomical Location / LateralityCollection Method / VolumeCollection Time Received TimeBloodVenous blood specimen / Unknown Narrative Authorizing ProviderResult TypeResult StatusCorey Jessica DOLAB BLOOD ORDERABLES Final ResultPerforming OrganizationAddressCity/State/ZIP CodePhone Number EXTERNAL LAB * Thyroid peroxidase antibody (02/07/2025 10:44 AM EST)Specimen (Source) Anatomical Location / LateralityCollection Method / VolumeCollection Time Received TimeBloodVenous blood specimen / Unknown Narrative Authorizing ProviderResult TypeResult StatusCorey Jessica DOLAB BLOOD ORDERABLES Final ResultPerforming OrganizationAddressCity/State/ZIP CodePhone Number EXTERNAL LAB * Thyroglobulin (02/07/2025 10:44 AM EST)Specimen (Source)Anatomical Location / LateralityCollection Method / VolumeCollection TimeReceived TimeBloodVenous blood specimen / Unknown Narrative Authorizing ProviderResult TypeResult StatusCorey Jessica DOLAB BLOOD ORDERABLES Final ResultPerforming OrganizationAddressCity/State/ZIP CodePhone Number EXTERNAL LAB * Progesterone (02/07/2025 10:44 AM EST)Specimen (Source)Anatomical Location / LateralityCollection Method / VolumeCollection TimeReceived TimeBloodVenous blood specimen / Unknown Narrative Authorizing ProviderResult TypeResult StatusCorey Jessica DOLAB BLOOD ORDERABLES Final ResultPerforming OrganizationAddressCity/State/ZIP CodePhone Number EXTERNAL LAB * DHEA-sulfate (02/07/2025 10:44 AM EST)Specimen (Source)Anatomical Location / LateralityCollection Method / VolumeCollection TimeReceived TimeBloodVenous blood specimen / Unknown Narrative Authorizing ProviderResult TypeResult StatusCorey Jessica DOLAB BLOOD ORDERABLES Final ResultPerforming OrganizationAddressCity/State/ZIP CodePhone Number EXTERNAL LAB * Estradiol (02/07/2025 10:44 AM EST)Specimen (Source)Anatomical Location / LateralityCollection Method / VolumeCollection TimeReceived TimeBloodVenous blood specimen / Unknown Narrative Authorizing ProviderResult TypeResult StatusCorey Jessica DOLAB BLOOD ORDERABLES Final ResultPerforming OrganizationAddressCity/State/ZIP CodePhone Number EXTERNAL LAB * Thyroglobulin Antibody (02/07/2025 10:44 AM EST)Specimen (Source)Anatomical Location / LateralityCollection Method / VolumeCollection TimeReceived Time BloodVenous blood specimen / Unknown Narrative Authorizing ProviderResult TypeResult StatusCorey Jessica DOLAB BLOOD ORDERABLES Final ResultPerforming OrganizationAddressCity/State/ZIP CodePhone Number EXTERNAL LAB * Testosterone, free, total (02/07/2025 10:44 AM EST)Specimen (Source)Anatomical Location / LateralityCollection Method / VolumeCollection TimeReceived Time BloodVenous blood specimen / Unknown Narrative Authorizing ProviderResult TypeResult StatusCorey Jessica DOLAB BLOOD ORDERABLES Final ResultPerforming OrganizationAddressCity/State/ZIP CodePhone Number EXTERNAL LAB * T3, reverse (02/07/2025 10:44 AM EST)Specimen (Source)Anatomical Location / LateralityCollection Method / VolumeCollection TimeReceived TimeBloodVenous blood specimen / Unknown Narrative Authorizing ProviderResult TypeResult StatusCorey Jessica DOLAB BLOOD ORDERABLES Final ResultPerforming OrganizationAddressCity/State/ZIP CodePhone Number EXTERNAL LAB * Serotonin serum (02/07/2025 10:44 AM EST)Specimen (Source)Anatomical Location / LateralityCollection Method / VolumeCollection TimeReceived TimeBloodVenous blood specimen / Unknown Narrative Authorizing ProviderResult TypeResult StatusCorey Jessica DOLAB BLOOD ORDERABLES Final ResultPerforming OrganizationAddressCity/State/ZIP CodePhone Number EXTERNAL LAB * CORTISOL, FREE DIALYSIS, LCMS (02/03/2025 9:13 AM EST)ComponentValueRef Range Test MethodAnalysis TimePerformed AtPathologist SignatureCORTISOL, FREE DIALYSIS, LCMS0.580. ug/dLTBHComment: These tests were developed and their performance characteristics determined by [facility]. They have not been cleared or approved by the Food and Drug Administration. Reference Range: 8 AM 0.10 ??- 1.20 4 PM 0.042 - 0.872 Performed at: ??[facility] [address] [place] [address] ??[id number] Service Captain: Kvng Haro MD, Phone: ??[phone] Specimen (Source)Anatomical Location / LateralityCollection Method / Volume Collection TimeReceived Time02/03/2025 9:13 AM EST02/03/2025 9:15 AM EST Narrative CLINISYNC - 02/12/2025 10:07 PM EST Authorizing ProviderResult TypeResult StatusCorey Jessica DOLAB BLOOD ORDERABLES Final ResultPerforming OrganizationAddressCity/State/ZIP CodePhone Number CLINISYNC [facility] * [facility] THYROGLOBULIN (02/03/2025 9:13 AM EST)ComponentValueRef RangeTest Method Analysis TimePerformed AtPathologist SignatureTHYROGLOBULIN (TG-SEAN)21. ng/mL TBHComment: This test was developed and its performance characteristics determined by [facility]. It has not been cleared or approved by the Food and Drug Administration. Reference Range: Pubertal Children and Adults: <40 According to the National Academy of Clinical Biochemistry, the reference interval for Thyroglobulin (TG) should be related to euthyroid patients and not for patients who underwent thyroidectomy. ??TG reference intervals for these patients depend on the residual mass of the thyroid tissue left after surgery. ??Establishing a post-operative baseline is recommended. ??The assay quantitation limit is 2.0 ng/mL. Performed at: ??[facility] [address], [place] ??[id number] Service Captain: Kvng Haro MD, Phone: ??[phone] Specimen (Source)Anatomical Location / LateralityCollection Method / Volume Collection TimeReceived Time02/03/2025 9:13 AM EST02/03/2025 9:15 AM EST Narrative CLINISYNC - 02/12/2025 10:07 PM EST Authorizing ProviderResult TypeResult StatusCorey Jessica DOCLINISYNCFinal Result Performing OrganizationAddBro[facility] Hospitalty/[facility]/ZIP CodePhone Number [facility] * [facility] INSULIN (02/03/2025 9:13 AM EST)ComponentValueRef RangeTest MethodAnalysis TimePerformed AtPathologist SignatureINSULIN9.82.6 - 24.9 uIU/mLTBHComment: Performed at: ?? - [facility] [address] ??[id number] Service Captain: Theron Roblero PhD, Phone: ??[phone] Specimen (Source)Anatomical Location / LateralityCollection Method / Volume Collection TimeReceived Time02/03/2025 9:13 AM EST02/03/2025 9:15 AM EST Narrative CLINISYNC - 02/06/2025 2:09 PM EST Authorizing ProviderResult TypeResult StatusCorey Jessica DOCLINISYNCFinal Result Performing OrganizationAddBro[facility]al Hospitalty/State/ZIP CodePhone Number CLINISYMN TB * [facility] GLUCOSE BLOOD (02/03/2025 9:13 AM EST)ComponentValueRef RangeTest Method Analysis TimePerformed AtPathologist EeuieaqpjNTENVST5095 - 106 mg/dLTBH Specimen (Source)Anatomical Location / LateralityCollection Method / Volume Collection TimeReceived Time02/03/2025 9:13 AM EST02/03/2025 9:15 AM EST Narrative CLINISYNC - 02/03/2025 10:26 AM EST Authorizing ProviderResult TypeResult StatusCorey Jessica DOCLINISYNCFinal Result Performing OrganizationAddressCity/State/ZIP CodePhone Number [facility]IN[facility]NC [facility] * [facility] ESTRONE (02/03/2025 9:13 AM EST)ComponentValueRef RangeTest MethodAnalysis TimePerformed AtPathologist SignatureESTRONE, SERUM38. pg/mLTBHComment: ?Range ?Adult (Premenopausal) ?27 - 231 ?Menstrual Cycle (1-10 days) ?19 - 149 ?Menstrual Cycle (11-20 days) ?? 32 - 176 ?Menstrual Cycle (21-30 days) ?? 37 - 200 ?Adult (Postmenopausal) ?0 - 125 Performed at: ?? - [facility] ??[id number] Service Captain: Katelynn Macdonald MD, Phone: ??[phone] Specimen (Source)Anatomical Location / LateralityCollection Method / Volume Collection TimeReceived Time02/03/2025 9:13 AM EST02/03/2025 9:15 AM EST Narrative CLINISYNC - 02/06/2025 2:09 PM EST Authorizing ProviderResult TypeResult StatusCorey Jessica DOCLINISYNCFinal Result Performing OrganizationAddressCity/State/ZIP CodePhone Number CLINISYNC [facility] * MLR HEMOGLOBIN A1C (02/03/2025 9:13 AM EST)ComponentValueRef RangeTest Method Analysis TimePerformed AtPathologist SignatureGLYCOHEMOGLOBIN A1C4.94.5 - 6.2 %TBHComment: ADA RECOMMENDED LIMIT 4.0 - 6.0 ADA THERAPEUTIC TARGET < 7.0 ACTION SUGGESTED > 7.0 ESTIMATED AVERAGE WUJIYIK28vb/dLTBHSpecimen (Source)Anatomical Location / LateralityCollection Method / VolumeCollection TimeReceived Time02/03/2025 9:13 AM EST02/03/2025 9:15 AM EST Narrative CLINISYNC - 02/03/2025 10:59 AM EST Authorizing ProviderResult TypeResult StatusCorey Jessica DOCLINISYNCFinal Result Performing OrganizationAddressCity/State/ZIP CodePhone Number [facility] * [facility] FERRITIN (02/03/2025 9:13 AM EST)ComponentValueRef RangeTest Method Analysis TimePerformed AtPathologist ZoeqjqlqqMRBHSOZR70.08.0 - 252.0 ng/mLTBH Specimen (Source)Anatomical Location / LateralityCollection Method / Volume Collection TimeReceived Time02/03/2025 9:13 AM EST02/03/2025 9:15 AM EST Narrative CLINISYNC - 02/03/2025 10:48 AM EST Authorizing ProviderResult TypeResult StatusCorey Jessica DOCLINISYNCFinal Result Performing OrganizationAddressCity/State/ZIP CodePhone Number [facility] * ALL THYROXINE (T4) FREE (02/03/2025 9:13 AM EST)ComponentValueRef RangeTest MethodAnalysis TimePerformed AtPathologist SignatureFREE T40.970.76 - 1.46 ng/dLTBHSpecimen (Source)Anatomical Location / LateralityCollection Method / VolumeCollection TimeReceived Time02/03/2025 9:13 AM EST02/03/2025 9:15 AM EST Narrative CLINISYNC - 02/03/2025 10:48 AM EST Authorizing ProviderResult TypeResult StatusCorey Jessica DOCLINISYNCFinal Result Performing OrganizationAddBro[facility] Hospitalty/State/ZIP CodePhone Number [facility] * ALL THYROXINE (T4) (02/03/2025 9:13 AM EST)ComponentValueRef RangeTest Method Analysis TimePerformed AtPathologist SignatureT4 THYROXINE9.304.80 - 13.90 ug/dLTBHSpecimen (Source)Anatomical Location / LateralityCollection Method / VolumeCollection TimeReceived Time02/03/2025 9:13 AM EST02/03/2025 9:15 AM EST Narrative CLINISYNC - 02/03/2025 10:26 AM EST Authorizing ProviderResult TypeResult StatusCorey Jessica DOCLINISYNCFinal Result Performing OrganizationAdd[facility] Hospitalty/State/ZIP CodePhone Number [facility] * ALL THYROID STIM HORMONE (02/03/2025 9:13 AM EST)ComponentValueRef RangeTest MethodAnalysis TimePerformed AtPathologist SignatureTHYROID STIMULATING HORMONE3.1050.358 - 3.740 uIU/mLTBHSpecimen (Source)Anatomical Location / LateralityCollection Method / VolumeCollection TimeReceived Time02/03/2025 9:13 AM EST02/03/2025 9:15 AM EST Narrative CLINISYNC - 02/03/2025 10:26 AM EST Authorizing ProviderResult TypeResult StatusCorey Jessica DOCLINISYNCFinal Result Performing OrganizationAddressty/State/ZIP CodePhone Number [facility] * ALL T3 FREE (02/03/2025 9:13 AM EST)ComponentValueRef RangeTest MethodAnalysis TimePerformed AtPathologist SignatureFREE T32.372.18 - 3.98 pg/mLTBHSpecimen (Source)Anatomical Location / LateralityCollection Method / VolumeCollection TimeReceived Time02/03/2025 9:13 AM EST02/03/2025 9:15 AM EST Narrative CLINISYNC - 02/03/2025 10:26 AM EST Authorizing ProviderResult TypeResult StatusCorey Jessica DOCLINISYNCFinal Result Performing OrganizationAddSCI-[facility] CodePhone Number [facility] * ALL C-PEPTIDE (02/03/2025 9:13 AM EST)ComponentValueRef RangeTest Method Analysis TimePerformed AtPathologist SignatureC-PEPTIDE, SERUM2.81.1 - 4.4 ng/mLTBHComment:C-Peptide reference interval is for fasting patients.Specimen (Source)Anatomical Location / LateralityCollection Method / VolumeCollection TimeReceived Time02/03/2025 9:13 AM EST02/03/2025 9:15 AM EST Narrative CLINISYNC - 02/06/2025 2:09 PM EST Authorizing ProviderResult TypeResult StatusCorey Jessica DOCLINISYNCFinal Result Performing OrganizationAddressCity/State/ZIP CodePhone Number CLINISYNC [facility] * XR foot 3+ views left (01/29/2025 [...] DateEnd Date Radha Sanchez MD [address] [place] [address] [facility]
--- OUTSIDE RECORDS SUMMARY | 2025-02-24 11:29 | XMS_ITS | Encounter Summary ---
Author Organization [facility] Address [address] [facility] [place] [address] Care Team Providers Care Tiltrotor Crew Chief Name Role Phone Radha Sanchez MD Primary Care Provider Encounter Details DateTypeDepartmentCare Team (Latest Contact Info)Cyswuypflag76/31/2025Telephone [facility] [address] [place] [address] [place] [address] Natalia Choi LPN Social History Tobacco UseTypesPacks/DayYears UsedDateSmoking Tobacco: NeverSmokeless Tobacco: NeverAlcohol UseStandard Drinks/WeekCommentsNot Currently0 (1 standard drink = 0.6 oz pure alcohol)Alcohol: 1 or 2 drinks on typical day/monthly or less. Caffeine: 1-2 cups/day teaCommentsNoSex and Gender InformationValueDate RecordedSex Assigned at MnqssThxfzs24/21/2023 8:59 AM EDTLegal SexFemale 06/15/2022 7:26 PM EDTGender OtdiecgkHjlauc99/21/2023 8:59 AM EDTSexual ZnkpfatswusKnmylmbw54/21/2023 8:59 AM EDTdocumented as of this encounter [...] stated that she had them drawn at [facility]. Obtained results while on the phone with [...] just yesterday at 3pm. Informed patient that nursing will reach back out to her after talking with Dr. Lopez. Natalia Celeste LPN 02/11/25 sent pt msg via [employer] notifying her that Climara patch was called into pharmacy. Patientto reach out with any questions. Natalia Celeste LPN documented in this encounter Plan of Treatment DateTypeDepartmentCare Team (Latest Contact Info)Kghsfonuftx81/28/2026 1:00 PM EDTOffice Visit [facility] [address] [facility] [address] Sanjeev Lopez, DO [address] [place] [address] documented as of this encounter Visit Diagnoses Not on filedocumented in this encounter Care Teams Team MemberRelationshipSpecialtyStart DateEnd Date Radha Sanchez MD [address] [facility] [place] [address] PCP - GeneralFamily Medicine12/12/22documented as of this encounter
--- OUTSIDE RECORDS SUMMARY | 2025-02-24 11:29 | XMS_ITS | Clinical Summary ---
Author Organization [employer] Address [address] [place] [address] Care Team Providers Care Silk Opener Name Role Phone Unavailable Primary Care Provider Unavailabl e Allergies Active AllergyReactionsCriticalityNoted DateCommentsTopiramateSwellingLow 12/19/2013 Medications MedicationSigDispense QuantityRefillsLast FilledStart DateEnd DateStatus levonorgestrel IUD (MIRENA) 20 mcg/24 hour (5 years) IUD 1 each by Intrauterine route once. Inserted ctive Active Problems ProblemNoted DateDiagnosed DatePolycystic ovarian veytqbxo73/11/2014Obesity 10/11/2013Irritable bowel oiegzigf99/11/0178Ulmgyotua66/11/2014Migraines 10/11/2013Myalgia and xlnidoow38/06/2013 Resolved Problems ProblemNoted DateDiagnosed DateResolved DatePolycystic tekbyld3002/06/2013 12/19/20132417Wmadkcfq33 Family History Medical HistoryRelationCommentsDepressionFatherRelationStatusCommentsFather Social History Tobacco UseTypesPacks/DayYears UsedDateSmoking Tobacco: NeverAlcohol UseStandard Drinks/WeekCommentsNo0 (1 standard drink = 0.6 oz pure alcohol)Comments NoSex and Gender InformationValueDate RecordedSex Assigned at BirthNot on file Legal OapFkhsdn00/11/2014 4:06 PM EDTGender IdentityNot on fileSexual OrientationNot on file Last Filed Vital Signs Vital SignReadingTime TakenCommentsBlood Kjoskjvr613/7003 11:12 AM EST Asbga9040 2:56 PM RSOSzqkrxarthp82.7 ??C (99.9 ??F)06/04/2014 11:12 AM ESTRespiratory Rate--Oxygen Saturation--Inhaled Oxygen Concentration--Weight 128.3 kg (282 lb 12.8 oz)06/04/2014 11:12 AM YNJXmrsxn121.1 cm (5' 5 )06/04/2014 11:12 AM ESTBody Mass Index47.0606/04/2014 11:12 AM EST Plan of Treatment Health MaintenanceDue DateLast WmliJjfylrwcQoftrimja16/30/1983Hepatitis B Vaccines (1 of 3 - 19+ 3-dose series)11/30/20019198Gnfvwgi-Cyjqaejevn-Cfgkdfaqu Vaccines (1 - Tdap)2001Pap Smear10/11/, 07/29/2008Cervical Cancer Sokrsjhvm13/11/2019Pap + HPV rwUomcuxq18Influenza Vaccine(s) (#1)2024Shingles Vaccine (Non-Medicare; Age 50+ or [...] FOR WOMEN > OR = 30 YRS SOFOqjoodc51/11/2014 12:00 AM EDT Well woman exam with routine gynecological exam Cervical cancer screening from Last 3 Months or Most Recently Relevant to Health Maintenance Results * FWML PAP + HPV High Risk Pool and 16/18 Genotyping ([id number]) (10/11/2013 12:00 AM EDT)ComponentValueRef RangeTest MethodAnalysis TimePerformed AtPathologist SignatureFWML PapsmearSEE [place] [employer] Comment: [id number] Source: Cervical/Vaginal/Endocervical Testing/Results: Sent for HPV High Risk Pool and Brittani 16/18 Testing Clinical History: LMP: ??6//14. ??IUD. ?? Test/Results: Negative for intraepithelial Lesions or Malignancy Electronically Signed By: HARRY RAMIREZ (ASCP) Comments: This specimen was screened by an FDA approved automated imaging system along with an additional manual rescreening by a land acquisition specialist and/or pathologist. Adequacy: Specimen is adequately prepared and documented. No endocervical cells present [facility] DNA (High/Low risk) GenotypingSEE [place] Bee There [facility] NANTICOKEComment: [id number] Results: Specimen: ??Thin Prep Results: ?HPV 16: [...] molecular assay. This test is performed at [facility], [address] [place] [address]. This test was developed and its performance characteristics determined by [facility] as a self-validated assay for [facility] and Thin Prep pap specimens. ?? It is approved by the U.S. Food and Drug Administration for ThinPrep. ??This test has not been approved by the FDA or validated by [facility]for anal paps or urethra swabs. Electronically Signed By: FREEMAN Specimen (Source)Anatomical Location / LateralityCollection Method / Volume Collection TimeReceived VyovEedyf38 Narrative Authorizing ProviderResult TypeResult StatusCinrosana Mason NP PATHOLOGY/CYTOLOGY ORDERABLESFinal ResultPerforming OrganizationAddress City/State/ZIP CodePhone Number [place] [employer] [address] [place] [address] from Last 3 Months or Most Recently Relevant to Health Maintenance Insurance
--- OUTSIDE RECORDS SUMMARY | 2025-02-24 11:29 | XMS_ITS | Encounter Summary ---
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 Name Role Phone Radha Sanchez MD Primary Care Provider [phone] Reason for Visit * ReasonCommentsMed Refill Encounter Details DateTypeDepartmentCare Team (Latest Contact Info)Tcytngwuguh97/23/2025Refill [facility] [address] [place] [address] Sanjeev Lopez, [address] [address] Nausea Social History Tobacco UseTypesPacks/DayYears UsedDateSmoking Tobacco: NeverSmokeless Tobacco: NeverAlcohol UseStandard Drinks/WeekCommentsNot Currently0 (1 standard drink = 0.6 oz pure alcohol)Alcohol: 1 or 2 drinks on typical day/monthly or less. Caffeine: 1-2 cups/day teaCommentsNoSex and Gender InformationValueDate RecordedSex Assigned at FlsywCfilwb35/21/2023 8:59 AM EDTLegal SexFemale 06/15/2022 7:26 PM EDTGender JvyspxtaHdpbap92/21/2023 8:59 AM EDTSexual DldccnbgkiqDrbuovqh40/21/2023 8:59 AM EDTdocumented as of this encounter Miscellaneous Notes * Telephone Encounter - Lydia Keenan LPN - 02/24/2025 9:13 AM EST Refill request received and script sent. documented in this encounter Plan of Treatment DateTypeDepartmentCare Team (Latest Contact Info)Htzjtzpdgvk82/28/2026 1:00 PM EDTOffice Visit [facility] [address] [place] [phone] Sanjeev Lopez DO [address] [place], [place] [phone] documented as of this encounter Visit Diagnoses Diagnosis Nausea Nausea alone documented in this encounter Care Teams Team MemberRelationshipSpecialtyStart DateEnd Date Radha Sanchez MD [address] [facility] [place] [phone] PCP - GeneralFamily Medicine12/12/22documented as of this encounter
--- OUTSIDE RECORDS SUMMARY | 2025-02-24 11:29 | XMS_ITS | Clinical Summary ---
Author Organization [facility] Address [address] [place] [address] Care Team Providers Care Small Kick Press Operator Name Role Phone Radha Sanchez MD Primary Care Provider [phone] Allergies Active AllergyReactionsCriticalityNoted AhvoIzwdaropZmxhxqkxEzknJhjbhh55/24/2024 Pt states allergic to paper tape TopiramateOther,Swelling,DjkryxhAlr14/18/2014 Medications MedicationSigDispense QuantityRefillsLast FilledStart DateEnd DateStatus qnllvfojkw-hrsgqbcdsttpx-wsqf (Fioricet) 50-300-40 mg capsule Take 50 capsules [...] route 1 (one) time per week. 5Active llcknoxvchcw-hka-ptkd-FA-vit K 18 mg iron-400 mcg-25 mcg tablet [...] /ctive Active Problems ProblemNoted DateDiagnosed DateFibrocystic breast tpjxrdy3106/24/2024Panniculitis affecting back01/25/2024Generalized anxiety kgcumryc12/02/2024ttention deficit hyperactivity disorder (ADHD), predominantly inattentive type11/22/2023Mallet deformity of right ring lcnkyh0505/16/2023reast pain10/06/2022Frequent headaches 10/06/2022Hallux valgus (acquired), left foot10/06/2022Insulin resistance 10/06/2022Labial cyst10/06/20224959Caknehdnmaa71/06/2023Weight gain10/06/2022History of multiple wpkalousyrfm02/31/1985Dyycjmorva80/31/2022Neurogenic bladder 12/01/2021sychophysiological gbseytuz25/31/2022Vitamin B12 pwuighfmuo76/31/2022 DDD (degenerative disc disease), nemfuj602Decreased movements in third ubpzpxqgl52/06/2020History of PCOS01/24/2017Insulin controlled gestational diabetes mellitus (GDM) in second fywfowntw53/24/2017BMI 45.0-49.9, adult 10/17/2016History of spontaneous jbkmoesg92/05/2017History of delivery 09/05/20164978Gvvljpfnv63/11/2014Irritable bowel bxojswtd78/11/2014Migraines 10/11/2013Polycystic ovarian /11/2014 Family History Medical HistoryRelationNameCommentsNo Known ProblemsFatherHeart murmurMother RelationNameStatusCommentsFatherAliveMotherAlive Social History Tobacco UseTypesPacks/DayYears UsedDateSmoking Tobacco: NeverSmokeless Tobacco: Never Tobacco Cessation:Counseling Given: Not Answered Alcohol UseStandard Drinks/WeekCommentsNever0 (1 standard drink = 0.6 oz pure alcohol)MT Safety & EnvironmentAnswerDate RecordedFear of Current or Ex-Partner Not on file05/25/2023Emotionally AbusedNot on file05/25/2023hysically AbusedNot on file05/25/2023Sexually AbusedNot on file05/25/2023hysically or Sexually AbusedNot on file05/25/2023CommentsUnknownSex and Gender Information ValueDate RecordedSex Assigned at CarqkWapxqu60/02/2025 8:53 AM EDTLegal Sex [place]1209/29/2021 9:51 PM EDTGender SskvzvfiPmzyqb00/02/2025 8:53 AM EDTSexual OrientationHeterosexual or Rajwmnia91/02/2025 8:53 AM EDT Last Filed Vital Signs Vital SignReadingTime TakenCommentsBlood Gpnmwngw311/8308/05/2024 11:20 AM EDT Nkqkn074308/05/2024 11:20 AM EDTTemperature--Respiratory Rate--Oxygen Saturation 100%08/05/2024 11:20 AM EDTInhaled Oxygen Concentration--Dxoljp00.4 kg (206 lb) 08/05/2024 11:20 AM ALWWsexpw243.1 cm (5' 5 )08/05/2024 11:20 AM EDTBody Mass Index34.28008/05/2024 11:20 AM EDT Plan of Treatment DateTypeDepartmentCare Team (Latest Contact Info)Jenaujzihum56/12/2025 10:30 AM ESTOffice Visit [facility] [address] [place] [address] Thomas Phillips MD [address] [facility] [place] [phone] Health MaintenanceDue DateLast DoneCommentsDepression Gylyrodvd02/30/1995 Varicella Vaccines (1 of 2 - 13+ 2-dose series)12/01/1995Hepatitis B Vaccines (1 of 3 - 19+ 3-dose series)2001Adult Uzfczdr1311/30/2004HPV Vaccines (1 - 3- dose SCDM series)2009HPV/Vfpjfp5911/30/20120280Bflrxktav43/30/2023COVID-19 Vaccine ( - 2024- season)2024Influenza Vaccine (#1)2024ervical Cancer Mtpehunzp28/21/2028Pap Smear07/22/201429/Zoster Vaccines (1 of 2) 2032HIB VaccinesAged OutNo [...] DateEnd Date Radha Sanchez MD [address] [facility] [address] PCP - General06/21/24
--- OUTSIDE RECORDS SUMMARY | 2025-02-24 11:35 | XMS_ITS | CCD ---
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 Name Role Phone Johnathon Winter MD [...] Unavailable Johnathon Winter MD Primary Care Provider [phone] JOHNATHON WINTER Primary Care Unavailable ROXIE GARCIA Attending Unavailable JOHNATHON WINTER Primary Care Unavailable SANCHEZ AGUSTIN Attending Unavailable JOHNATHON WINTER Primary Care Unavailable TEO THOMAS Attending Unavailable Johnathon Winter Unavailable Scottie Lyn Unavailable Johnathon Winter MD Primary Care Provider MD Tee Peterson Attending Provider DO Sanjeev Lopez Attending Provider Tee Peterson Admitting Unavailable Tee Peterson Attending Unavailable Sanjeev Lopez Attending Unavailable Sanjeev Lopez Admitting Unavailable JOHNATHON WINTER Referring Unavailable JOHNATHON WINTER Primary Care Unavailable SEBASTIEN PRICE Admitting Unavailable SEBASTIEN PRICE Attending Unavailable SEBASTIEN PRICE Referring Unavailable JOHNATHON WINTER Primary Care Unavailable FIDEL MARTINEZ Attending Unavailable JOHNATHON WINTER Primary Care Unavailable Johnathon Winter MD Primary Care Provider [phone] Johnathon Winter Primary Care Unavailable KELI Resendez Attending Unavailable KELI Resendez Admitting Unavailable Winter, Johnathon E Primary Care Unavailable Santy Mckeon Attending Unavailable Santy Mckeon Admitting Unavailable Winter, Johnathon E Primary Care Unavailable Johnathon Winter MD Primary Care Provider Johnathon Winter MD Primary Care Provider [phone] Johnathon Winter MD Primary Care Provider [phone] Johnathon Winter MD Primary Care Provider [phone] RUTHIE CHEN Attending Unavailable RUTHIE CHEN Attending Unavailable Migeul SÁNCHEZ, Christiano Mcgovern Attending Unavailable Felicia SÁNCHEZ, Bhavin Primary Care Unavailable JORDANJUDI Attending Unavailable WINTER, JOHNATHON E Referring Unavailable [...] Unavailable WINTER, JOHNATHON E Primary Care Unavailable MOUKARUTHIE WADDELL Referring Unavailable WINTER, JOHNATHON E Primary Care [...] Attending Unavailable RUSHER, GEORGI S Referring Unavailable JESSICASANJEEV Alvarez Attending Unavailable RUSHER, GEORGI S Attending Unavailable RUSHER, GEORGI S Attending Unavailable RUSHER, GEORGI S Referring Unavailable JESSICALAY Attending Unavailable RUSHER, GEORGI S Attending Unavailable RUSHER, GEORGI S Attending Unavailable RUSHER, GEORGI S Referring Unavailable RUSHER, GEORGI S Attending Unavailable RUSHER, GEORGI S Referring Unavailable GEORGI CARREON Attending Unavailable GEORGI CARREON Referring Unavailable Johnathon Winter MD Primary Care Provider Johnathon Winter MD Primary Care Provider JOHNATHON WINTER Referring Unavailable JOHNATHON WINTER Primary Care Unavailable Allergies Allergy ClassificationReported Allergen(s)Allergy TypeDate of OnsetReaction(s) Facility (20 sources)Topiramate; Translations: [TOPIRAMATE]Propensity to adverse mvzatixuv14-16-4259BdsovyocPUEN [facility] (10 sources)Adhesive agent; Translations: [ADHESIVE]Propensity to adverse reactions to drug (disorder)60-97-1706DoapJjkCwpiwv [facility] (7 sources)topiramateDrug Cxpjlbn63-77-5635Mqrivwlz, Other (See Comments) [employer] Work Phone: Medications Current Medications MedicationDrug Class(es)DatesSig (Normalized)Sig (Original)0.5 ML tirzepatide 20 MG/ML Auto-Injector [Mounjaro] (6 sources)Mounjaro 10 MG/0.5ML as directed Subcutaneous Activeacetaminophen 325 mg oral tablet (2 sources)Start: 14-29-4351mndz 2 tablets by mouth every six hours as needed for painacetaminophen (TYLENOL) 325 mg tablet Take 2 tablets (650 mg total) by mouth every 6 (six) hours asneeded for pain. 30 tablet 01/26/2024 Active acetaminophen 325 mg / HYDROcodone bitartrate 5 mg oral tablet (3 sources)Opioid AgonistStart: 01-26-2024 End: 74-17-6219AJDIDegcqvs-acetaminophen (NORCO) 5-325 mg per tablet Indications: Panniculitis affecting back Take1 tablet by mouth every 6 (six) hours as needed for pain for up to 7 days. Max Daily Amount: 4 tablets 20 tablet 01/26/2024 02/02/2024 ActiveStart: 10-11-2022 End: 31-72-0854GHRPNhublce-acetaminophen (NORCO) 5-325 MG per tablet 1 tablet Start: 08-19-2021 End: 93-37-5821XAMCVpzzifz-acetaminophen (NORCO) 5-325 MG per tablet Indications: Herniated lumbar intervertebral disc Take 1 tablet by mouth every 6 hours as needed for Pain for up to 3 days. Intended supply: 3 days. Take lowest dose possible to manage pain 12 tablet 0 08/19/2021 08/22/2021 ActiveamLODIPine 5 mg oral tablet (20 sources)Dihydropyridine Calcium Channel BlockerStart: 07-03-2024 End: 22-95-8015kwjl 2 tablets by mouth in the morningamLODIPine (NORVASC) 5 mg tablet Take 2 tablets (10 mg total) by mouth in the morning. 07/03/2024 ActiveStart: 07-03-2024 End: 68-95-0181swfg 1 tablet by mouth in the morningamLODIPine (Norvasc) 10 MG tablet Take 10 mg by mouth in the morning. 07/03/2024 07/18/2025 ActiveStart: 07-03-2024 End: 40-83-1236jdwk 1 tablet by mouth in the morningamLODIPine [...] Glucometer) w/Device kit (20 sources)Start: 09-20-2023 End: 49-87-5752Subiw Glucose Monitoring Suppl (D-Care Glucometer) w/Device kit Indications: Pre-diabetes 1 kit Daily Use four times daily to check FSBS. In the morning prior to breakfast & 1 hour after each meal for a total of 4times daily. 1 kit 09/20/2023 09/19/2024 Activecephalexin 500 mg oral capsule (1 source)Cephalosporin AntibacterialStart: 01-26-2024 End: 00-61-6997lpnj 1 capsule by mouth in the morning, then take 1 capsule by mouth at bedtimeCEPHalexin (KEFLEX) 500 mg capsule Take 1 capsule (500 mg total) by mouth in the morning and 1 capsule (500 mg total) before bedtime. Do all this for 6 days. 12 capsule 01/26/2024 02/01/2024 Activecholecalciferol 0.125 mg oral tablet (3 sources)Vitamin Dtake 1 tablet by mouth in the morningcholecalciferol, vitamin D3, 5,000 units tablet Take 1 tablet (5,000 Units total) by mouth in the morning. Activecyclobenzaprine hydrochloride 10 mg oral tablet (20 sources)Muscle RelaxantStart: 08-12-2024 End: 12-93-0146pawn 1 tablet by mouth three times daily as needed for muscle spasmscyclobenzaprine (Flexeril) 10 MG tablet Indications: Muscle cramps Take 1 tablet (10 mg) by mouth 3(three) times a day as needed for muscle spasms for up to 10 days 30 tablet 08/12/2024 ActiveStart: 84-49-9532dkcz 1 tablet by mouth three times dailycyclobenzaprine (FLEXERIL) 10 mg tablet Take 1 tablet (10 mg total) by mouth 3 (three) times a day.30 tablet 01/26/2024 ActiveStart: 69-53-5970aaurkkbcavevhsh (FLEXERIL) 10 mg tablet Indications: Acute left-sided [...] mg oral tablet (13 sources)BenzodiazepineStart: 06-29-2023 End: 91-69-8327wjbwcZMM (Valium) 10 MG tablet TAKE 1 TABLET BY MOUTH PREOP 06/29/2023 02/26/2024 Discontinueddocusate sodium 100 mg oral capsule (2 sources)Start: 74-37-9569vmnx 1 capsule by mouth in the morning, then take 1 capsule by mouth at bedtimedocusate sodium (COLACE) 100 mg capsule Take 1 capsule (100 mg total) by mouth in the morning and 1capsule (100 mg total) before bedtime. 30 capsule 01/26/2024 Activeescitalopram 10 mg oral tablet (20 sources)Serotonin Reuptake InhibitorStart: 68-88-1955huba 1 tablet by mouth in the morningescitalopram (Lexapro) 10 MG tablet Take 10 mg by mouth in the morning. 07/17/2024 Activefluconazole 100 mg oral tablet (6 sources)Azole AntifungalStart: 05-01-2023 End: 41-73-4755stet 1 tablet by mouth in the morningfluconazole (Diflucan) 100 MG tablet Indications: Follow-up encounter involving medication , Superficial skin infection Take 1 tablet (100 mg) by mouth in the morning for 14 days. 14 tablet 0 05/01/2023 05/15/2023 Activetake 1 tablet by mouth every twenty-four hoursFluconazole 100 MG 1 tablet Orally daily for 10 days Activegelatin, empty no. 00, capsule (3 sources)Start: 33-12-2820hakpeze, empty no. 00, capsule Compound medication for hypothryroid 04/16/2024 ActiveStart: 59-55-9596tzqvfhy, empty no. 00, capsule 04/16/2024 ActivehydroCHLOROthiazide 25 mg / metoprolol tartrate 50 mg oral tablet (3 sources)Thiazide Diuretic, beta-Adrenergic BlockerStart: 05-27-2024 metoprolol-hydroCHLOROthiazide (Lopressor HCT) 50-25 MG tablet 05/27/2024 Active hydrOXYzine hydrochloride 25 mg oral tablet (3 sources)AntihistamineStart: 79-13-3870asdb 1 tablet by mouth four times daily as needed for anxietyhydrOXYzine (ATARAX) 25 mg tablet Indications: Generalized anxiety disorder Take 1 tablet (25 mg total) by mouth 4 (four) times a day as needed for anxiety (or sleep). 120 tablet 2 10/21/2024 Activeisopropyl alcohol 0.7 ml/ml medicated pad (20 sources)Start: 49-49-0432BM ALCOHOL SWABS pads, medicated 03/28/2024 Active Start: 75-80-7576Jmpdchz Swabs (B-D SINGLE USE SWABS REGULAR) pads 12/24/2023 ActiveStart: 09-14-2023 End: 06-26-9463Ukbssfg Swabs (Alcohol Prep Pad) 70 % pads Indications: Pre- diabetes Apply 1 Pad topically in the morning and 1 Pad before bedtime. Use twice daily to check FSBS.. 180 each 3 09/14/2023 12/13/2023 Active lisdexamfetamine dimesylate 40 mg oral capsule (20 sources)Central Nervous System StimulantStart: 83-45-2585iaph 1 capsule by mouth once daily in the morninglisdexamfetamine (VYVANSE) 40 mg capsule Indications: Attention deficit hyperactivity disorder (ADHD), predominantly inattentive type Take 1 capsule (40 mg total) by mouth every morning. Max Daily Amount: 40 mg 30 capsule 01/03/2025 ActiveStart: 40-46-8385ujch 1 capsule by mouth once daily in the morninglisdexamfetamine (VYVANSE) 40 mg capsule Indications: Attention deficit hyperactivity disorder (ADHD), predominantly inattentive type Take 1 capsule (40 mg total) by mouth every morning. Max Daily Amount: 40 mg 30 capsule 11/04/2024 ActiveStart: 12-08-2022 End: 93-01-0019cque 1 capsule by mouth once dailyLisdexamfetamine 50 mg capsule Discontinued 50 MG PO Daily June 22, 2023 June 23, 2023 9:10amStart: 49-44-3886rvyx 1 capsule by mouth every twenty-four hoursVyvanse 30 MG 1 capsule in the morning Orally Once a day for 30 days Nov, Activelosartan potassium 100 mg oral tablet (20 sources)Angiotensin 2 Receptor BlockerStart: 05-06-2024 End: 90-11-7789hjjn 1 tablet by mouth in the morninglosartan (COZAAR) 100 mg tablet Take 1 tablet (100 mg total) by mouth in the morning. 05/06/2024 Active Start: 04-11-2024 End: 89-30-4941zzhs 1 tablet by mouth once dailyLosartan 50 mg tablet Discontinued 50 MG PO daily May 06, 2024 3:10pm May 06, 2024 3: 13pmmagnesium glycinate 100 mg magnesium capsule (4 sources)magnesium glycinate 100 mg magnesium capsule Take 200 mg by mouth nightly. Activemagnesium oxide 400 mg oral tablet (3 sources)take 1 tablet by mouth once dailymagnesium oxide (MAGOX) 400 mg tablet Take 1 tablet (400 mg total) by mouth nightly. ActivemethylPREDNISolone 4 mg oral tablet (5 sources)CorticosteroidStart: 25-92-3865dhqaaaOUNDQEScyjye (MEDROL, JW,) 4 mg tablet Indications: Herniated lumbar intervertebral disc Take 1 tablet (4 mg total) by mouth See Admin Instructions. Use as directed by package instructions 21 tablet 0 05/15/2023 Ovygmc37 hr metoprolol succinate 50 mg extended release oral tablet (20 sources)beta-Adrenergic BlockerStart: 25-28-4180bmie 1 tablet by mouth every twenty-four hoursmetoprolol succinate XL (TOPROL XL) 50 mg 24 hr tablet Take 1 tablet (50 mg total) by mouth. 05/17/2024 ActiveStart: 05-17-2024 End: 37-60-9076gdde 1 tablet by mouth once dailyMetoprolol Succinate 50 mg tablet extended release 24 hr Active 50 MG PO daily June 18, 2024 8:43am MONOJECT 3CC SYRINGE 3 ML misc (20 sources)Start: 36-43-7020XSVCWQMT 3CC SYRINGE 3 ML misc 01/02/2024 Active Mounjaro 10 MG/0.5ML solution auto-injector (7 sources)Start: 01-05-2024 End: 20-46-7631tqrcat 0.5 mL by subcutaneous injection every weekMounjaro 10 MG/0.5ML solution auto-injector Indications: Pre-diabetes INJECT 0.5 MLS SUBCUTANEOUSLYONCE WEEKLY 2 mL 3 01/05/2024 07/16/2024 Discontinued (Discontinued by another clinician)Start: 53-94-7520zftyay 0.5 mL by subcutaneous injection every weekMounjaro 10 MG/0.5ML solution auto-injector Indications: Pre-diabetes INJECT 0.5 MLS SUBCUTANEOUSLYONCE WEEKLY 2 mL 3 01/05/2024 Activemounjaro 10 mg/0.5ml solution pen-injector (6 sources)Mounjaro 10 MG/0.5ML as directed Subcutaneous ActiveMounjaro 12.5 MG/0.5ML solution auto-injector (20 sources)Start: 17-72-9557grysuo 0.5 mL by subcutaneous injection every week Mounjaro 12.5 MG/0.5ML solution auto-injector Indications: Insulin resistance , Weight gain inject 0.5 milliliters UNDER THE SKIN ONCE WEEKLY 2 mL 3 12/27/2024 ActiveStart: 84-37-0271tpsghw 0.5 mL by subcutaneous injection every week Mounjaro 12.5 MG/0.5ML solution auto-injector Indications: Insulin resistance , Weight gain inject 0.5 milliliters UNDER THE SKIN ONCE WEEKLY 2 mL 3 10/02/2024 ActiveStart: 88-58-2663nwipcy 0.5 mL by subcutaneous injection every week Mounjaro 12.5 MG/0.5ML solution auto-injector Indications: Insulin resistance , Weight gain inject 0.5 milliliters UNDER THE SKIN ONCE WEEKLY 2 mL 3 07/05/2024 ActiveMOUNJARO 7.5 mg/0.5 mL pen injector (10 sources)Start: 68-44-1136zhmdva 7.5 mg by subcutaneous injection every week MOUNJARO 7.5 mg/0.5 mL pen injector Inject 7.5 mg under the skin once a week. 02/27/2023 ActiveStart: 33-81-7778upiqfy 7.5 mg by subcutaneous injection every weekMOUNJARO 7.5 mg/0.5 mL pen injector Inject 7.5 mg under the skin once a week. 0 02/27/2023 Gxupzkchewcmswulus-ptb-ycri-FA-vit K 18 mg iron-400 mcg-25 mcg tablet (3 sources)vymwjwginywx-llf-rmxn-FA-vit K 18 mg iron-400 mcg-25 mcg tablet Take by mouth. Activenystatin 100 unt/mg topical powder (20 sources)Polyene AntifungalStart: 10-25-2024 End: 39-90-6486iwznylwn (Mycostatin) 389158 UNIT/GM powder Indications: Skin irritation Apply topically 3 (three) times a day as needed for rash 30 g 1 10/25/2024 11/24/2024 ActiveStart: 05-01-2023 End: 02-84-3097mlostzeu (Mycostatin) cream Indications: Superficial skin infection Apply topically 2 (two) times aday Dispense cream that does NOT have perfumes added. 30 g 3 09/21/2023 09/20/2024 ActiveStart: 24-15-8711jogvjiau (MYCOSTATIN) powder Apply 1 Application topically in the morning and 1 Application before bedtime. 04/14/2023 ActiveStart: 72-73-3171ccdgjogy (Mycostatin) 694507 UNIT/GM powder Indications: Skin irritation APPLY TO AFFECTED AREA TOPICALLY EVERY DAY 30 g 1 04/14/2023 Activeondansetron 4 mg disintegrating oral tablet (20 sources)Serotonin-3 Receptor AntagonistStart: 36-66-7322dpfbjrhfjiu ODT (Zofran-ODT) 4 MG disintegrating tablet Indications: Nausea Dissolve one tablet on tongue EVERY 6 HOURS NEEDED FOR NAUSEA AND VOMITING 30 tablet 3 11/20/2024 ActiveStart: 39-35-8386vpjjvjerqcr ODT (Zofran-ODT) 4 MG disintegrating tablet Indications: Nausea DISSOLVE ONE TABLET UNDER THE TONGUE EVERY 6 HOURS NEEDED FOR NAUSEA AND VOMITING 30 tablet 2 06/27/2024 ActiveStart: 26-72-6473gxbn 1 tablet by mouth every eight hours as needed for nausea and vomitingondansetron ODT (ZOFRAN ODT) 4 mg disintegrating tablet Dissolve 1 tablet (4 mg total) on tongue every 8 (eight) hours as needed for nausea or vomiting. 30 tablet 01/26/2024 ActiveStart: 04-11-2023 End: 66-00-9101zsbn 1 tablet by mouth every six hoursondansetron ODT (ZOFRAN ODT) 4 mg disintegrating tablet Dissolve 1 tablet (4 mg total) on tongue every 6 (six) hours. 0 04/11/2023 05/11/2023 ActiveStart: 42-34-6515egrc 1 tablet by mouth three times daily as needed for nauseaondansetron (ZOFRAN-ODT) 4 MG disintegrating tablet Take 1 tablet by mouth 3 times daily as needed for Nausea or Vomiting 21 tablet 0 01/03/2022 ActiveStart: 01-03-2022 End: 30-23-2452yhhnmmsbqzp (ZOFRAN) injection 4 mgpolysaccharide iron complex 391 mg oral capsule (2 sources)Start: 01-03-2024 End: 67-54-2394ieww 1 capsule by mouth once dailyiron polysaccharides (ProFe) 391.3 (180 Fe) MG capsule Indications: Low ferritin level Take 1 capsule (391.3 mg) by mouth Daily 30 capsule 6 01/03/2024 02/02/2024 Activeprasterone, DHEA, (DHEA ORAL) (1 source)take 200 mg by mouth in the morningprasterone, DHEA, (DHEA ORAL) Take 200 mg by mouth in the morning. ActivepredniSONE 10 mg oral tablet (1 source)Start: 08-19-2021 End: 93-26-0248lnlj 4 tablets by mouth once dailypredniSONE (DELTASONE) 10 MG tablet Take 4 tablets by mouth once daily for 5 days 20 tablet 0 08/19/2021 08/29/2021 ActivePrenatal Mip-Hsl-JQ-Fish Oil ([facility] GUMMY) 0.4-113.5 MG CHEW (2 sources) Kue-Hmj-WI-Fish Oil ([facility] GUMMY) 0.4-113.5 MG CHEW Take 2 Units by mouth daily 0 Active5 ml sodium chloride 9 mg/ml injection (2 sources)Start: 52-99-5145vikaaf chloride flush 0.9 % injection 10 mLStart: 01-03-2022 End: .9 % sodium chloride bolusTirzepatide (5 sources)Start: 25-25-4174Sgvwjkxixyq 10 mg/0.5 mL pen injector Active 12.5 MG SUBCUT As Directed May 17, 2024 12:13pmFreeTextSig: as directed Subcutaneous; Note: Source Status: Taking; Provider: jessica adamesyStart: 66-77-1872Hzzhxugfyfi 10 mg/0.5 mL pen injector Active 12.5 MG SUBCUT As Directed May 17, 2024 11:13amFreeTextSig: as directed Subcutaneous; Note: Source Status: Taking; Provider: jessica Boggsart: 04-11-2024 End: 20-01-0882Ezcbzuwedui 10 mg/0.5 mL pen injector Discontinued MG SUBCUT As Directed April 11, 2024 1:00am May 17, 2024 12:13pm FreeTextSig: as directed Subcutaneous; Note: Source Status: Taking; Provider: jessica Boggsart: 04-11-2024 End: 34-15-2698Gahoanacpwc 10 mg/0.5 mL pen injector Discontinued MG SUBCUT As Directed April 11, 2024 12:00am May 17, 2024 11:13am FreeTextSig: as directed Subcutaneous; Note: Source Status: Taking; Provider: jessica Boggsart: 00-99-3661Uaosciehruz 10 mg/0.5 mL pen injector Active MG SUBCUT As Directed April 11, 2024 12:00am FreeTextSig: as directed Subcutaneous; Note: Source Status: Taking; Provider: jessica Kingsleyirzepatide (Mounjaro) 10 MG/0.5ML solution pen-injector (11 sources)Start: 26-27-0966llqcvz 0.5 mL by subcutaneous injection every week Tirzepatide (Mounjaro) 10 MG/0.5ML solution pen-injector Indications: Pre- diabetes Inject 0.5 mL under the skin 1 (one) time per week 2 mL 3 09/14/2023 Activetirzepatide (MOUNJARO) 12.5 mg/0.5 mL pen injector (1 source)tirzepatide (MOUNJARO) 12.5 mg/0.5 mL pen injector Inject 12.5 mg under the skin every 7 days. Activetirzepatide (MOUNJARO) 2.5 mg/0.5 mL pen injector (3 sources)tirzepatide (MOUNJARO) 2.5 mg/0.5 mL pen injector Inject 2.5 mg under the skin every 7 days. Sundays ActiveTirzepatide (Mounjaro) 7.5 MG/0.5ML solution pen-injector (2 sources)Start: 43-79-2303uthjph 0.5 mL by subcutaneous injection every week Tirzepatide (Mounjaro) 7.5 MG/0.5ML solution pen-injector Indications: Insulin resistance INJECT 0.5 ML UNDER THE SKIN 1 (ONE) TIME PER WEEK FOR 28 DAYS. 2.5 mL 1 02/27/2023 ActivetiZANidine 2 mg oral tablet (1 source)Central alpha-2 Adrenergic AgonistStart: 85-81-8747qguf 1 tablet by mouth once daily as neededtiZANidine (ZANAFLEX) 2 MG tablet Take 2 tablets by mouth nightly as needed (muscle spasms) 10 tablet 0 02/16/2022 ActiveViloxazine (12 sources)Start: 70-47-5676sgtq 2 capsules by mouth every twenty-four hours in the morningviloxazine (QELBREE) 200 mg capsule,extended release 24hr Indications: ADHD (attention deficit hyperactivity disorder), inattentive type Take two 200 mg capsules (400 mg total) in the morning by mouth. 63 capsule 11/08/2024 ActiveStart: 82-21-5670befa 2 capsules by mouth every twenty-four hours in the morningviloxazine (QELBREE) 200 mg capsule,extended release 24hr Indications: Attention deficit hyperactivity disorder (ADHD), predominantly inattentive type Take 400 mg by mouth in the morning. 60 capsule 5 11/06/2024 ActiveStart: 56-95-6285pffx 1 capsule by mouth every twenty-four hours in the morningviloxazine (QELBREE) 200 mg capsule,extended release 24hr Indications: Attention deficit hyperactivity disorder (ADHD), predominantly inattentive type Take 200 mg by mouth in the morning. 90 capsule 1 08/01/2024 ActiveStart: 49-16-3818lkks 1 capsule by mouth once dailyViloxazine (Qelbree) 200 mg capsule,extended release 24hr Active 200 MG PO Daily July 29, 2024 12:00am Start: 07-17-2024 End: 71-87-3945yjcw 1 capsule by mouth every twenty-four hours in the morning viloxazine (QELBREE) 200 mg capsule,extended release 24hr Indications: Attention deficit hyperactivity disorder (ADHD), predominantly inattentive type Take 200 mg by mouth in the morning. 30 capsule 07/17/2024 07/31/2024 Discontinued (Reorder)Start: 04-11-2024 End: 40-70-1009rdhn 1 capsule by mouth once daily at bedtimeViloxazine (Qelbree) 200 mg capsule,extended release 24hr Discontinued 200 MG PO Daily at bedtime Al fraire 2024 1:00am May 17, 2024 12:13pmStart: 04-11-2024 End: 18-13-1399bkgk 1 capsule by mouth once daily at bedtimeViloxazine (Qelbree) 200 mg capsule,extended release 24hr Discontinued 200 MG PO Daily at bedtime Al fraire 2024 12:00am May 17, 2024 11:13amStart: 98-25-4356mgkr 1 capsule by mouth every twenty-four hours in the morningviloxazine (QELBREE) 200 mg capsule,extended release 24hr Indications: Attention deficit hyperactivity disorder (ADHD), predominantly inattentive type Take 200 mg by mouth in the morning. 30 capsule 1 01/03/2024 ActiveViloxazine HCl ER (Qelbree) 200 MG capsule sustained-release 24 hr (20 sources)Start: 96-09-3860dtkn 1 capsule by mouth in the morning, then take 1 capsule by mouth every twenty-four hoursViloxazine HCl ER (Qelbree) 200 MG capsule sustained-release 24 hr Take 200 mg by mouth in the morning. 07/17/2024 Active End: 16-84-9550rhtc 1 capsule by mouth at bedtime, then [...] (20 sources)Central Nervous System StimulantStart: 11-22-2023 End: 33-10-3238efjx 1 capsule by mouth once daily in the morning, then take 1 capsule by mouth every twenty-four hoursDextroamphetamine-Amphetamine (Adderall Xr) 30 mg capsule,extended release 24hr Discontinued 30 MG PO Every morning April 11, 2024 1:00am July 29, 2024 11:23amStart: 09-18-2023 End: 00-53-9459rzqy 1 tablet by mouth twice dailyDextroamphetamine-Amphetamine 30 mg tablet Discontinued 30 MG PO Twice daily 60 30 October 25, 2023 April 11, 2024 11:03amStart: 06-21-2023 End: 90-79-6246ijsl 1 tablet by mouth twice dailyDextroamphetamine-Amphetamine 30 mg tablet Discontinued 30 MG PO Twice daily June 21, 2023 12:00am June 21, 2023 3:09pmStart: 75-44-9825vbaz 1 tablet by mouth every twelve hours Adderall 30 MG 1 tablet Orally Twice a day for 30 days Apr, ActiveStart: 01-02-2023 End: 89-01-4066rbym 1 tablet by mouth once dailyDextroamphetamine-Amphetamine (Adderall) 20 mg tablet Discontinued 20 MG PO Daily April 1151:00am May 17, 2024 12:12pmibuprofen 800 mg oral tablet (9 sources)Nonsteroidal Anti-inflammatory DrugStart: 04-25-2022 End: 22-56-8041pxkb 1 tablet by mouth three times dailyibuprofen (MOTRIN) 800 mg tablet Indications: Acute exacerbation of chronic low back pain , DDD (deg enerative disc disease), lumbar TAKE 1 TABLET BY MOUTH THREE TIMES A DAY 90 tablet 04/25/2022 01/18/2024 Discontinued (Therapy completed)iopamidol (ISOVUE- 370) 76 % injection 75 mL (1 source)Start: 01-03-2022 End: 22-02-2217nalkolplx (ISOVUE-370) 76 % injection 75 mL1 ml ketorolac tromethamine 30 mg/ml cartridge (1 source)Nonsteroidal Anti-inflammatory Drug, Cyclooxygenase InhibitorStart: 10-11-2022 End: 86-32-3521yrqzprlde (TORADOL) injection 30 mgMONOJECT LUER-LOCK TIP 3 mL syringe (1 source)Start: 05-09-2024 End: 37-02-8980ZXTIXYPA LUER-LOCK TIP 3 mL syringe 05/09/2024 07/31/2024 Discontinued (Error)1 ml morphine sulfate 4 mg/ml cartridge (1 source)Opioid AgonistStart: 08-19-2021 End: 16-80-1255sbowhfeq (PF) injection 10 mgStart: 08-19-2021 End: 70-54-8026qwinodek (PF) injection 10 mg Problems Active Problems Problem ClassificationProblemDateDocumented DateEpisodic/ChronicAcquired foot deformities (20 sources)Acquired left hallux valgus; Translations: [Hallux valgus (acquired), left foot]Onset: [id number] foot deformities (8 sources)Tailor's bunion of left foot; Translations: [Bunionette of left foot] 07-46-5677UzerwnnnQyfvfsje foot deformities (4 sources)Acquired deformity of toe of right foot; Translations: [Acquired deformities of toe(s), unspecified, right foot]32-95-8877AxgiugnrBlwlqyo disorders (9 sources)Anxiety; Translations: [Anxiety disorder, unspecified]Onset: [id number]-qhrremg, conduct, and disruptive behavior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 Plasma by calculationBellevue Hospital Laboratory - Chemistry and Chemistry - challengeon 08-58-1682Aykuvberdfp [Mass/Vol]174 mg/dL<=200B[facility]vue HospitalCholesterol in HDL [Mass/Vol]65 mg/vZCpks28-75IkfspshfuBellevue HospitalComment on above:> or =60 mg/dl - LOW CARDIOVASCULAR RISK<40 mg/dl - HIGH CARDIOVASCULAR RISK Triglyceride [Mass/Vol]83 mg/dL<=150Berger Hospitalerum or plasma total cholesterol/high density lipoprotein (HDL) cholesterol mass eulalio 94-38-2737Ezqinsjoqwj.total/Cholesterol in HDL [Mass ratio]Serum or plasma total cholesterol/high density lipoprotein (HDL) cholesterol mass [facility] HospitalComment on above:3.3 - 4.4 LOW RISK4.4 - 7.1 AVERAGE RISK7.1 - 11.0 MODERATE RISK>11.0 HIGH RISKFree testosterone measurement by LC-MS/MSon 18-79-0609Jjfgsquwfgix Free [Mass/Vol]Free testosterone measurement by LC-MS/MS0.0-4.2FParkwood HospitalComment on above:Performed at: [address] [id number] Director: Theron Roblero PhD, Phone: [phone] at: [address] [id number] Director: Katelynn Macdonald MD, Phone: [phone] mean value [Mass/volume] in Blood Estimated from glycated hemoglobinon 00-68-6625Mrpjvqx glucose Estimated from glycated hemoglobin (Bld) [Mass/Vol]Glucose mean value [Mass/volume] in Blood Estimated from glycated hemoglobinBellevue HospitalLaboratory - Chemistry and Chemistry - challengeon 80-05-5031Cxtdmhbhv (Vitamin B12) [Mass/Vol]336 pg/vV818-6851BsfecumjsBellevue HospitalComment on above:Performed at: [facility] [address] [id number] Director: Theron Roblero PhD, Phone: [phone] [Mass/Vol]11.0 ng/mL8.0-252.0Bellevue HospitalFree T4 [Mass/Vol]1.03 ng/dL0.76-1.46B[facility]vue HospitalGlucose [Mass/Vol]80 mg/sP85-077KbsamphtyBellevue Hospital T4 [Mass/Vol]9.30 ug/dL4.80-13.90B[facility]vue HospitalTSH Qn1.271 m[IU]/L0.358-3.740B[facility] HospitalLaboratory - Hematology and Cell countson 82-29-9599GwU3b (Bld) [Mass fraction]5.0 %4.5-6.2FParkwood HospitalComment on above:ADA RECOMMENDED LIMIT 4.0 - 6.0ADA THERAPEUTIC TARGET < 7.0ACTION SUGGESTED> 7.0MLR HEMOGLOBIN A1Con 04-01-2024 Glucose [Mass/Vol]97 mg/dLNOFreeman Neosho HospitalNliuqbshwzJrL6n (Bld) [Mass fraction]5 %4.5 - 6.2 %[facility] HealthcareComment on above:ADA RECOMMENDED LIMIT 4.0 - 6.0 ADA THERAPEUTIC TARGET < 7.0 ACTION SUGGESTED > 7.0 CLINISYNCNOIL HealthcareNo Panel Informationon 97-05-868748296134-Njtmyqn Vitamin D Total22.2 ng/mLBellevue HospitalComment on above:<20 ng/mL Vit D uxgxbkged38-<30 ng/mL Vit D xxbbmgzamldn93-779 ng/mL Vit D sufficient>100 ng/mL Potential ToxicityC-Peptide2.3 ng/mL1.1-4.4FParkwood Hospital Comment on above:C-Peptide reference interval is for fasting patients. Dehydroepiandrosterone Uyygtdm515.0 ug/dL57.3-279.2FParkwood HospitalFree Cortisol, Dialysis, LCMS0.385 ug/dL.[facility] Comment on above:These tests were developed and their performancecharacteristics determined by [employer]. They have not beencleared or approved by the Food and Drug Administration.Reference Range:8 AM 0.10 - 1.204 PM 0.042 - 0.872Performed at: [facility] [address] [id number] Dir martín: Kal Archibald MD, Phone: [phone] Triiodothyronine2.38 pg/mL 2.18-3.98Bellevue HospitalReverse Triiodothyronine (T3)23.1 ng/dL9.2-24.1FParkwood HospitalComment on above:This test was developed and its performance characteristicsdetermined by [employer]. It has not been cleared orapproved by the Food and Drug Administration.Performed at: [facility] [address] [place], [place] [id number] Director: Katelynn Macdonald MD, Phone: [phone] Hormone Binding Ilwaxoik586.0 nmol/L24.6-122.0 Bellevue HospitalComment on above:Performed at: [facility] [address] [id number] Director: Theron Roblero PhD, Phone: [phone] Level17 ng/dL4-50[facility] Plasma serotonin measurement (mass/volume)on 85-54-7430Mskginwhb (P) [Mass/Vol] Plasma serotonin measurement (mass/volume)31-207Bellevue HospitalComment on above:This test was developed and its performance characteristicsdetermined by [employer]. It has not been cleared orapproved by the Food and Drug Administration.Performed at: [facility] [id number] Director: Katelynn Macdonald MD, Phone: [phone] estrone measurementon 49-17-6249B3 [Mass/Vol]Serum estrone measurement.Bellevue HospitalComment on above:Range Adult (Premenopausal) 27 - 231 Menstrual Cycle (1-10 days) 19 - 149 Menstrual Cycle (11-20 days) 32 - 176 Menstrual Cycle (21-30 days) 37 - 200 Adult (Postmenopausal) 0 - 125Performed at: [facility] [employer] [id number] Director: Katelynn Macdonald MD, Phone: [phone] or plasma estradiol (E2) measurement (mass/volume)on 80-45-9798Y9 [Mass/Vol] Serum or plasma estradiol (E2) measurement (mass/volume).Bellevue HospitalComment on above:Adult Female Range Follicular phase 12.5 - 166.0 Ovulation phase 85.8 - 498.0 Luteal phase 43.8 - 211.0 Postmenopausal <6.0 - 54.7 1st trimester 215.0 - >4300.0Roche ECLIA methodologySerum or plasma insulin measurement (units/volume)on 01-27-9618Ysoaoiw QnSerum or plasma insulin measurement (units/volume)2.6-24.9[facility] Comment on above:Performed at: [facility] [employer] ([employer])[address] [id number] Director: Theron Roblero PhD, Phone: [phone] or plasma progesterone measurement (mass/volume)on 22-99-1458Ssxxigieeool [Mass/Vol]Serum or plasma progesterone measurement (mass/volume).Bellevue HospitalComment on above:Follicular phase 0.1 - 0.9 Luteal phase 1.8 - 23.9 Ovulation phase 0.1 - 12.0 First trimester 11.0 - 44.3 Second trimester 25.4 - 83.3 Third trimester 58.7 - 214.0 Postmenopausal 0.0 - 0.1Performed at: [employer] [address] [id number] Director: Theron Manley, Phone: [phone] Ab Qnon 93-25-8089Zmawzdx Peroxidase Antibodies<9 [IU]/mL0-34Bellevue HospitalThyroglobulin Ab Qnon 80-61-2198Fumu-Thyroglobulin Antibody1.0 [IU]/mLAbnormal0.0-0.9Bellevue HospitalComment on above:Thyroglobulin Antibody measured by [employer]MethodologyIt should be noted that the presence of thyroglobulinantibodies may not be pathogenic nor diagnostic, especiallyat very low levels. The assay surgical elastic knitter has found thatfour percent of individuals without evidence of thyroiddisease or autoimmunity will have positive TgAb levels upto 4 IU/mL.Performed at: [employer] [address] [id number] Director: Theron Roblero PhD, Phone: [phone] [Mass/volume] in Serum or Plasmaon 74-08-4131Aixiujeljnkmo [Mass/Vol] Thyroglobulin [Mass/volume] in Serum or Plasma.[facility] Comment on above:This test was developed and its performance characteristicsdetermined by [employer]. It has not been cleared or approvedby [...] is 2.0 ng/mL.Performed at: [facility] [address] [place], [place] [id number] Director: Kal Archibald MD, Phone: [phone] TOMOSYNTHESIS DIAGNOSTIC BIon 88-85-8948XznMil[place] [address] Mammography Report Signed Patient: KARUNA DUMONT MR#: [id number] : 1980 Acct:[id number] Age/Sex: 43 / F ADM Date: 03/13/24 Loc: MAMMO Attending Dr: Sanjeev Lopez D.O. Ordering Physician: Sanjeev Lopez D.O. Results: Date of Service: 03/13/24 Follow Up: Procedure(s): MM tomosynthesis diagnostic BI Accession Number(s): [id number] cc: Johnathon Winter M.D.; Sanjeev Lopez D.O. Patient Name: KARUNA DUMONT MR#: [id number] : 1980 Exam Date: 03/13/2024 Ordering Doctor: [...] stomach cancer at age 67. LOCATION: [facility] BREAST COMPOSITION: There are scattered areas [...] Signed By: 03/13/24 1459 DD/ 1458 TD/TT: Solar Sales Representative And Assessor:TBHRadiology, Radiologist, - 03/13/2024 [place] [address] Mammography Report Signed Patient: KARUNA DUMONT MR#: [id number] : 1980 Acct:[id number] Age/Sex: 43 / F ADM Date: 03/13/24 Loc: MAMMO Attending Dr: Sanjeev Lopez D.O. Ordering Physician: Sanjeev Lopez D.O. Results: Date of Service: 03/13/24 Follow Up: Procedure(s): MM tomosynthesis diagnostic BI Accession Number(s): [id number] cc: Johnathon Winter M.D.; Sanjeev Lopez D.O. Patient Name: KARUNA DUMONT MR#: [id number] : 1980 Exam Date: 03/13/2024 Ordering Doctor: [...] stomach cancer at age 67. LOCATION: [facility] BREAST COMPOSITION: There are scattered areas [...] Signed By: 03/13/24 1459 DD/ 1458 TD/TT: Solar Sales Representative And Assessor: SCOOTER Johns InformationOrdered By: Radiologist Radiology on 51-72-3198JAEE Cover Work Phone: No Panel Informationon 94-14-8678Qnznameqf Study observation (narrative)SCOOTER Amin BREAST BI LIMITEDon 34-89-7191SxwMil[place], [place] [address] Ultrasound Report Signed Patient: KARUNA DUMONT MR#: [id number] : 1980 Acct:[id number] Age/Sex: 43 / F ADM Date: 03/13/24 Loc: MAMMO Attending Dr: Sanjeev Lopez D.O. Ordering Physician: Sanjeev Lopez D.O. Date of Service: 03/13/24 Procedure(s): US breast BI limited Accession Number(s): [id number] cc: Johnathon Winter M.D.; Jessica,Sanjeev D.O. Patient Name: KARUNA DUMONT MR#: [id number] : 1980 Exam Date: 03/13/2024 Ordering Doctor: DR Sanjeev Lopez . RADIOLOGY REPORT PROCEDURE: MM TOMOSYNTHESIS DIAGNOSTIC BI, 03/13/2024, 13:30 US BREAST BI LIMITED, 03/13/2024, 14:10 COMPARISON: MM POST BIOPSY LT, 05/23/2023. MM TOMOSYNTHESIS DIAGNOSTIC LT, 11/15/2023. INDICATIONS: Breast Pain Calculator Name [facility] Breast Cancer Risk Assessment Tool 5 Year Breast Cancer Risk 0.90% Lifetime Breast Cancer Risk 10.90% Personal Breast Cancer No Personal Ovarian Cancer No Treatments None Family Cancers Grandmother-maternal with stomach cancer at age 65. LOCATION: [facility] BREAST COMPOSITION: There are scattered areas [...] Signed By: 03/13/24 1459 DD/ 1458 TD/TT: Solar Sales Representative And Assessor:TBHRadiology, RadiologistMD - 03/13/2024 [place] [address] Ultrasound Report Signed Patient: KARUNA DUMONT MR#: [id number] : 1980 Acct:[id number] Age/Sex: 43 / F ADM Date: 03/13/24 Loc: MAMMO Attending Dr: Sanjeev Lopez D.O. Ordering Physician: Sanjeev Lopez D.O. Date of Service: 03/13/24 Procedure(s): US breast BI limited Accession Number(s): [id number] cc: Johnathon Winter M.D.; Sanjeev Lopez D.O. Patient Name: KARUNA DUMONT MR#: [id number] : 1980 Exam Date: 03/13/2024 Ordering Doctor: [...] stomach cancer at age 67. LOCATION: [facility] BREAST COMPOSITION: There are scattered areas [...] Dictated By: Monserrat Silva M.D. Signed By: 03/13/249 DD/ 57 TD/TT: Solar Sales Representative And Assessor: SCOOTER [facility] METABOLIC PANLon 31-04-7208Uystd gap [Moles/Vol]5 mmol/L Normal5-15[facility] HospitalComment on above:Performed By: #### CBC, BMP #### [facility] ([id number]) [address] [place], [place] [address]Mbcdwau [Mass/Vol]8.1 mg/dLLow8.5-10.5PMercy Health [facility] HospitalComment on above:Performed By: #### CBC, BMP #### [facility] ([id number]) [address] [place], [place] [address]Ouiviyhi [Moles/Vol]107 mmol/MCjqpoc17-832BccKeebkz [place] HospitalComment on above:Performed By: #### CBC, BMP #### [facility] ([id number]) [address] [place], [place] [address]FG4 [Moles/Vol]26 mmol/RKwvfzk28-71OuaUdrthx [facility] Comment on above:Performed By: #### CBC, BMP #### [facility] ([id number]) [address] [place], [place] [address]Gpgsybrocl [Mass/Vol]0.89 mg/dLNormal0.40-1.00[facility] HospitalComment on above:Result Comment: METHOD TRACEABLE TO IDMS STANDARD Performed By: #### CBC, BMP #### [facility] ([id number]) [address] [facility], [place] [address]FRD/1.73 sq M.predicted among non-blacks MDRD (S/P/Bld) [Vol rate/Area]83 mL/min/{1.73_m2}Normal>59[facility] HospitalComment on above: Result Comment: Reported eGFR is based on the CKD-EPI 2020 equation that does not use a race coefficient.Performed By: #### CBC, BMP #### [facility] ([id number]) [address] [place], [place] [address]Vucpdja [Mass/Vol]114 mg/hMQilv15-14YbyLackeq [facility] Comment on above:Performed By: #### CBC, BMP #### [facility] ([id number]) [address] [place] [address]Naickmvkd [Moles/Vol]4.1 mmol/LNormal3.5-5.0[facility] HospitalComment on above:Performed By: #### CBC, BMP #### [facility] ([id number]) [address] [place] [address]Tzolcp [Moles/Vol]138 mmol/FAbafqn524-365ZczQhkpwe [place] HospitalComment on above:Performed By: #### CBC, BMP #### [facility] ([id number]) [address] [place] [address]Xgmy nitrogen [Mass/Vol]15 mg/dLNormal5-23[facility] HospitalComment on above:Performed By: #### CBC, BMP #### [facility] ([id number]) [address] [place] [address]BPAYMBVP BLOOD COUNTon 47-34-4351Fnjuzzykjux distribution width (RBC) [Ratio]14.5 %Xmsqln40.5-15.0[facility] HospitalComment on above:Performed By: #### CBC, BMP #### [facility] ([id number]) [address] [place] [address]Rxxyhehvuf (Bld) [Volume fraction]30.0 %Zyd94-24VwnCweysd [place] HospitalComment on above:Performed By: #### CBC, BMP #### [facility] ([id number]) [address] [place] [address]Cbhuhtyfdi (Bld) [Mass/Vol]9.9 g/dLLow11.7-15.5PMercy [facility] HospitalComment on above:Performed By: #### CBC, BMP #### [facility] ([id number]) [address] [place], [place] [address]TYB (RBC) [Entitic mass]27.8 jsLxnhxr71-60PlwEzxvuc [facility] HospitalComment on above:Performed By: #### CBC, BMP #### [facility] ([id number]) [address] [place], [place] [address]ELBN (RBC) [Mass/Vol]33.2 g/eABvelab83-52FfgRhwmyo [facility] HospitalComment on above:Performed By: #### CBC, BMP #### [facility] ([id number]) [address] [place] [address]OJF (RBC) [Entitic vol]84 rEEcgedj09-463GedPbhpec [place] HospitalComment on above:Performed By: #### CBC, BMP #### [facility] ([id number]) [address] [place] [address]Aqzxftxc mean volume (Bld) [Entitic vol]7.7 fLNormal7-12 ProMatrium health fl[facility] medical centera [facility] HospitalComment on above:Performed By: #### CBC, BMP #### [facility] ([id number]) [address] [place] [address]Ozqikqdvv (Bld) [#/Vol]267 10*3/cVEaihkw149-851MlcFsqelc [facility] HospitalComment on above:Performed By: #### CBC, BMP #### [facility] ([id number]) [address] [place] [address]OJM COUNT3.58 X10E12/LLow3.80-5.20[facility] Hospital Comment on above:Performed By: #### CBC, BMP #### [facility] ([id number]) [address] [place] [address]LTS (Bld) [#/Vol]15.6 10*3/uLHigh4.0-11.0ProRegional Medical Centerca [facility] HospitalComment on above:Performed By: #### CBC, BMP #### [facility] ([id number]) [address] [place], [place] [address]Coding Summaryon 93-99-9870Prttkz SummaryMLBase 64 KjhbtjreQKu8qCk+PGhlYWQ+WQ1IFLBuN49snUHiiQ8aD4TYYArKKtscPBADWPiKJlNfzaTgIE5ohGXg ZXJu [file] Y29 (more content not included)...[facility] HospitalCoding SummaryHTMLBase 64 MsuueiyzGTm9sFc+PGhlYWQ+EM4TWVRpZ98fyLOfzN2uD6CZXNfRUlgiDPOOENaEStPbucFzMD1ocMWq ZXJu [file] Y29 (more content not included)...[facility] HospitalConsent Formson 12-11-7865Pmeaukc [id number]#1.00OTGTIFF [facility].Auto Diff 1on 65-75-1851Xkoi [place] %6 %Normal-12Fisher-Titus Medical CenterComment on above:Performed By: #### [id number], 1107640, 3266850158, 0985711754, 1639155, 22780402, 3580236430 ####[facility] (DEFAULT)[address] [place] [address]Jhcv Abs#0.0 v88Ujynwt6.0-0.2[facility] HospitalComment on above:Performed By: #### [id number], 3147263, 5785272556, 2993756004, 2512279, 64963077, 8655104082 ####[facility] (DEFAULT)[address] [place] [address] 915[address]Uysuiecnh/100 WBC (Bld)0.7 %Normal0.2-2.0 Jennifer HospitalComment on above:Performed By: #### [id number], 8258014, 9331883312, 5620461797, 4670505, 24529025, 6860444649 ####[facility] (DEFAULT)[address] [place] [address] 398[address]Vgo Abs#0.1 e91Fskrlu0.0-0.4 [facility] HospitalComment on above:Performed By: #### [id number], 6998837, 8794776302, 2978599317, 8001711, 85955041, 0006670055 ####[facility] (DEFAULT)[address] [place] [address] 21548Xrtealotpgg/100 WBC (Bld)1.3 % Normal0.9-4.0[facility] HospitalComment on above:Performed By: #### [id number], 4675560, 2769637766, 0706820810, 9025981, 40908151, 6033469654 ####[facility] (DEFAULT)[address] [place] [address] 796[address]Nzifi Abs#1.6 z54Qgykkb 1.3-2.9[facility] HospitalComment on above:Performed By: #### [id number], 3436212, 2762947170, 7319135836, 2501689, 88334367, 5392422562 ####[facility] (DEFAULT)[address] [place] [address] 58[address]Zbmjstshvtb/100 WBC (Bld)25 % Zkbnvi45-41Qapusjqz HospitalComment on above:Performed By: #### 4635305782, 9651952, 6011097670, 3136288068, 9648366, 68613904, 0679051931 ####[facility] (DEFAULT)[address] [place] [address] 82[address]Sonn Abs#0.4 w72Awwwmu 0.0-0.8[facility] HospitalComment on above:Performed By: #### 8839475054, 3745147, 3766088758, 1132781877, 2412495, 41295082, 5326125841 ####[facility] (DEFAULT)[address] [place] [address] 309[address]Fytx Abs#4.2 e22Cetofi9.5-9.2 [facility] HospitalComment on above:Performed By: #### 5379767630, 2144928, 4148613003, 6931832713, 4637703, 89647484, 6034978063 ####[facility] (DEFAULT)[address] [place] [address] 16664Vvaushzkmqa/100 WBC (Bld)67 % Ihkrtl95-40Aaznodob HospitalComment on above:Performed By: #### 7935588265, 4925869, 8312793118, 8799901149, 6177436, 06226698, 8437988689 ####[facility] (DEFAULT)[address] [place] [address]Qkrmavyip Auto (Bld) [#/Vol]on 86-82-7828Ejidfrrji (Bld) [#/Vol]Automated basophil count0.0-0.2 [facility] HospitalBasophils/100 WBC Auto (Bld)on 01-14-2024 Basophils/100 WBC (Bld)Automated basophil %0.2-2.0[facility] HospitalCB w/ Auto Diffon 61-45-4161Xbllqqyqhdh distribution width (RBC) [Ratio] 14.5 %Kbosol57.5-15.0[facility] HospitalComment on above:Performed By: #### [id number], 2143714, 8501761741, 8734535857, 4805926, 15515042, 1559091066 ####[facility] (DEFAULT)[address] [place] [address] 17066Llcsfgoobp (Bld) [Volume fraction]37.9 %Frntkk53.7-40.4[facility] HospitalComment on above: Performed By: #### [id number], 0315422, 8737006244, 5735319732, 6560179, 86809719, 4203832644 ####[facility] (DEFAULT)[address] [place] [address] 70[address]Buenoqpdmd (Bld) [Mass/Vol]12.3 g/nCMooyob29.3-15.9[facility] HospitalComment on above:Performed By: #### [id number], 0080730, 4544938652, 7702243266, 2294969, 33073922, 1339781948 ####[facility] (DEFAULT)[address] [place], [place] [address]Man Diff?AutoInvalid Interpretation Code [facility]itus Medical CenterComment on above:Performed By: #### 4848924786, 6229811, 1889114974, 2092552767, 6981682, 70888637, 9613246835 ####[facility] (DEFAULT)[address] [place] [address] (RBC) [Entitic mass]27 pg Bhemzh68-79Xwyzrwsa HospitalComment on above:Performed By: #### 2736365340, 8534301, 1334473967, 0266024828, 3021308, 49331506, 7018182220 ####[facility] (DEFAULT)[address] [place], [place] [address]HC (RBC) [Mass/Vol]33 g/kDOzulad63-61Rsrrndki HospitalComment on above:Performed By: #### 5253306490, 4747035, 6299106030, 5263589333, 6654906, 54166971, 8392047795 ####[facility] (DEFAULT)[address] [place], [place] [address]V (RBC) [Entitic vol] 84 hEVczflx32-397Qivowgkv HospitalComment on above:Performed By: #### 0709671729, 7217401, 5004653597, 5010914545, 0788225, 41394249, 1371219390 ####[facility] (DEFAULT)[address] [place], [place] [address]Platelet 270 y60Vexjal295-557Thmixpwf HospitalComment on above:Performed By: #### 4951104813, 4131942, 8676685543, 9225758467, 2308012, 57284365, 7549794332 ####[facility] (DEFAULT)[address] [place] [address] 29612Tduwtwvp mean volume (Bld) [Entitic vol]7.4 fLNormal6.3-10.2Magrcleveland clinic hillcrest hospital HospitalComment on above:Performed By: #### 7191094361, 9776278, 1617137459, 7365210310, 1930807, 12605063, 7297407704 ####[facility] (DEFAULT)[address] [place] [address] 22919QLX2.53 n77Aroijk6.70-5.30[facility] HospitalComment on above: Performed By: #### 4817939655, 3302097, 9977549968, 9649947756, 4715049, 40970444, 1899853463 ####[facility] (DEFAULT)[address] [place] [address] 30003SFF2.3 f09Fzvgsc4.5-10.5[facility] HospitalComment on above: Performed By: #### 4747897315, 8676554, 8380360652, 4448856365, 2045099, 64730365, 2813979065 ####[facility] (DEFAULT)[address] [place] [address] 546[address]KNG Standardon 25-03-9404Snglcdhcnd ChemNormalThe [facility] HospitalComment on above:Performed By: #### 4422046711, 5663493, 3837807422, 0380009305, 3662373, 33333834, 7739020087 ####[facility] (DEFAULT)[address] [place] [address] 07732vPRJ Non AA>60Invalid Interpretation Code [facility] HospitalComment on above:Performed By: #### 3124656440, 5243273, 5461955753, 9113940040, 9793688, 93753048, 3854716216 ####[facility] (DEFAULT)[address] [place] [address] 18970tJML AA>60Invalid Interpretation CodeThe Metrohealth System HospitalComment on above:Performed By: #### 9137989059, [id number], [id number], [id number], 1509374, 28367469, [id number] ####[facility] (DEFAULT)[address] [place] [address] [id number] [Mass/Vol]3.6 g/dLNormal 3.5-5.0[facility] HospitalComment on above:Performed By: #### [id number], [id number], [id number], [id number], 2335203, 08956219, [id number] ####[facility] (DEFAULT)[address] [place] [address] [id number]/Globulin [Mass ratio]1.2 {ratio}Low1.4-2.6[facility] HospitalComment on above:Performed By: #### [id number], [id number], [id number], 2403970667, 3880562, 17645283, [id number] ####[facility] (DEFAULT)[address] [place] [address] [id number] Phos73 IU/ICyfvzs35-36[facility] HospitalComment on above:Performed By: #### [id number], 6256151, [id number], [id number], 7171798, 38498915, [id number] ####[facility] (DEFAULT)[address] [place] [address] 10858FVG [Catalytic activity/Vol]16.0 U/VBpoctk18.0-54.0[facility] HospitalComment on above:Performed By: #### [id number], [id number], [id number], [id number], 4137105, 03929717, [id number] ####[facility] (DEFAULT)[address] [place] [address] 51385Vuxkh gap [Moles/Vol]6.9 mmol/LNormal5.0-19.0[facility] HospitalComment on above:Performed By: #### [id number], 4351668, [id number], [id number], 4515273, 11875665, [id number] ####[facility] (DEFAULT)[address] [place] [address] 66105PXI [Catalytic activity/Vol]19 U/GBzxxlx78-62Izqfgdzr [facility] Comment on above:Performed By: #### [id number], 8456103, 2906180368, 9524842006, 8137265, 30448584, 7624322773 ####[facility] (DEFAULT)[address] [place] [address] 79717Jbfr Total0.2 mg/dLLow0.3-1.2MTwin City Hospital Comment on above:Performed By: #### [id number], 5148506, 0067088749, 1565058692, 9720717, 79225044, 9228872161 ####[facility] (DEFAULT)[address] [place] [address] 03216Lpnhluc [Mass/Vol]8.4 mg/dLLow8.9-10.3MTwin City HospitalComment on above:Performed By: #### [id number], 0852754, 6223906225, 6259491794, 3741697, 64797939, 2237862121 ####[facility] (DEFAULT)[address] [place] [address] 44583Cwozytsh [Moles/Vol]108 mmol/ENmdfmc996-055 [facility] CenterComment on above:Performed By: #### [id number], 6018173, 5818290379, 2213634364, 3191607, 22322961, 3105161500 ####[facility] (DEFAULT)[address] [place] [address] 93313LP0 [Moles/Vol]24 mmol/LNormal 21-32[facility] Medical CenterComment on above:Performed By: #### [id number], 9362817, 4796061421, 9033570861, 2811668, 59869618, 7482335413 ####[facility] (DEFAULT)[address] [place] [address] 94023Nzqawyhbqx [Mass/Vol]0.78 mg/dL Normal0.60-1.30[facility] Medical CenterComment on above:Performed By: #### [id number], 6429384, 3641767208, 9313838554, 9767329, 70330166, 2165033106 ####[facility] (DEFAULT)[address] [place] [address] 83794Quvpcoyc (S) [Mass/Vol] 2.9 g/dLNormal1.5-4.3Mcity hospital HospitalComment on above:Performed By: #### [id number], 4628449, 6140989141, 0667182608, 6933747, 28916057, 3172691454 ####[facility] (DEFAULT)[address] [place] [address] 63234Mcyjodu [Mass/Vol]88.0 mg/zBNmneyg51.0-118.0[facility] HospitalComment on above:Performed By: #### [id number], 9007641, 6683457308, 7058582973, 2748909, 95066753, 2488769091 ####[facility] (DEFAULT)[address] [place] [address] 54422Ipakrsojdg979 mOsm/LInvalid Interpretation CodeThe [facility]health System HospitalComment on above:Performed By: #### [id number], 6631612, 0748577105, 3469948788, 3806263, 97917414, 7974318203 ####[facility] (DEFAULT)[address] [place] [address] 40883Agcuypyxu [Moles/Vol]3.9 mmol/LNormal3.6-5.1[facility] Hospital Comment on above:Performed By: #### [id number], 5071976, 2540593425, 2577345992, 1444930, 92940753, 8152989501 ####[facility] (DEFAULT)[address] [place] [address] 12018Hirvlwp [Mass/Vol]6.5 g/dLNormal6.5-8.1Mc[facility] hospital HospitalComment on above:Performed By: #### [id number], 1662507, 3967804899, 9732966914, 0952378, 40736572, 6606271724 ####[facility] (DEFAULT)[address] [place] [address] 71210Ofuclt [Moles/Vol]135.0 mmol/YVjc265.0-144.0 [facility] Medical CenterComment on above:Performed By: #### [id number], 0186227, 5428296021, 9437006183, 0788167, 02203338, 0944441388 ####[facility] (DEFAULT)[address] [place] [address] 50794Hyhk nitrogen [Mass/Vol]15 mg/dL Normal8-[address] [place], [place] [address]Comment on above:Performed By: #### [id number], 4388992, 7657118238, 8258487005, 1392157, 03116844, 5338832979 ####[facility] (DEFAULT)[address] [place] [address] 80569Lwvc nitrogen/Creatinine [Mass ratio]19.2 mg/mgHigh4.6-16.2MTwin City HospitalComment on above:Performed By: #### [id number], 2425285, 9561527668, 9639053207, 7603013, 00190557, 9196408129 ####[facility] (DEFAULT)[address] [place] [address] 97896AC Angiography Headon 24-21-8036Al angiography head w/contrast/noncontrastEXAM: CT Angiography Head HISTORY: [...] Racheal Mathis DO 01/14/24 8:11 am Technologist: [facility] Head or Brain w/o Contraston 87-91-9284NU Head or Brain w/o ContrastEXAMINATION: CT Head [...] Clayton Wright MD 01/14/24 6:53 am Technologist: [facility] HospitalED Clinical Summaryon 88-41-9589HQ Clinical [facility] - Emergency Department [address] [place], [place] [id number] ED Clinical Summary PERSON INFORMATION Name: KARUNA DUMONT Age: 43 Years Sex: FEMALE : 1980 MRN: Acct#: Visit Reason: Headache; HEADACHE Arrival: 01/14/2024 04:59:27 Discharge: 01/14/2024 09:46:00 LOS: 000 04:47 Check In: 01/14/2024 04:59:27 Checkout:01/14/2024 09:46:00 Address: [facility] [address] PCP: Johnathon Winter MD PROVIDER INFORMATION Provider [...] evaluation of headache. Onset of headache this rn provider relations. 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 Stated headache is [...] RN 01/14/2024 Alcohol Use: Past Substance Use (more content not included)...[facility] HospitalED Note - Physicianon 66-58-6905LI Note - PhysicianPatient: KARUNA DUMONT Age: 43 [...] evaluation of headache. Onset of headache this rn provider relations. 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 Stated headache is [...] Plan Diagnosis Sudden onset of severe headache (RHH75-IE R51.9, Discharge, Medical) Headache, unspecified ([id number]-[id number] R51.9, Medical) Plan Condition: Improved, Stable. Disposition: Disch (more content not included)...[facility] HospitalED Patient Summaryon 11-87-7431FD Patient Summary[facility] - [facility] [address] [place] [address] PATIENT DISCHARGE INSTRUCTIONS Patient Information Name: KARUNA DUMONT Age: 43 Years Date of : 1980 Reason For Visit: Headache; HEADACHE Arrival Time: 01/14/2024 04:59:27 Primary Care Physician: Johnathon Winter MD Attending Physician: Santy Mckeon MD Comment: Visit Diagnosis: Diagnoses This Visit Headache (15712485) Headache, unspecified (R51.9) Sudden onset of severe headache (R51.9) The [facility] is open Monday through Monday from 9A [...] alcohol and/or drug addiction problems; contact the [facility] 24/10 Crisis Hotline -Text 2EWWI yj 057027. If you received any narcotics, sedation, or [...] legal documents With: Address: When: Johnathon Winter [address] [place] [address], [place] [address] Business (1) Within 2 to 4 days [...] and treatment you received today in the [facility] were for an urgent problem and are not intended as complete care. It is important for you to follow up with a doctor, nurse practitioner, or physician?s social research assistant for ongoing care. If your symptoms [...] so we can reach you if necessary. [facility] has provided you with a complete list of medications post discharge. Please inform your icicle machine operator/provider of your visit and for further instruction [...] AT MIDDAY. amphetamine-dextroamphetamine (amphetamine-dextroa (more content not included)...[facility] HospitalEosinophils/100 WBC Auto (Bld)on 01-14-2024 Eosinophils/100 WBC (Bld)Automated eosinophil %0.9-4.0[facility] HospitalErythrocyte distribution width Auto (RBC) [Ratio]on 34-06-8211Vqvzyokggzr distribution width (RBC) [Ratio]Erythrocyte distribution width [Ratio] by Automated count11.5-15.0[facility] HospitalEstimated glomerular filtration rate (GFR) non- American 62-79-3288YHO/1.73 sq M.predicted among non-blacks MDRD (S/P/Bld) [Vol rate/Area]Estimated glomerular filtration rate (GFR) non- AmericanBellevue HospitalExtra Greenon 41-63-1332Aihq CollectedYesInvalid Interpretation CentervilleComment on above:Performed By: #### [id number], 9182321, 7598192172, 4273251459, 5999544, 99858043, 6470728636 ####[facility] (DEFAULT)[address] [place], [place] [address]Koenoijh Calc (S) [Mass/Vol]on 19-76-4603Klhxlxdl (S) [Mass/Vol]Serum globulin measurement by calculation (mass/volume)1.5-4.3 [facility] HospitalHematocrit Auto (Bld) [Volume fraction]on 20-93-9244Tlezbkzulu (Bld) [Volume fraction]Hematocrit [Volume Fraction] of Blood by Automated count33.7-40.4FParkwood HospitalHemoglobin [Mass/volume] in Bloodon 74-49-2111Xeuhxnilxa (Bld) [Mass/Vol]Hemoglobin [Mass/volume] in Blood11.3-15.9[facility] HospitalLaboratory - Chemistry and Chemistry - challengeon 94-32-5937Nhcwvgl [Mass/Vol]3.6 g/dL 3.5-5.0[facility] HospitalALP [Catalytic activity/Vol]73 U/L32-91 [facility] HospitalALT [Catalytic activity/Vol]16.0 U/L14.0-54.0 [facility] HospitalAST [Catalytic activity/Vol]19 U/L15-41 [facility] HospitalBilirubin [Mass/Vol]0.2 mg/dLLow0.3-1.2 [facility] HospitalCalcium [Mass/Vol]8.4 mg/dLLow8.9-10.3FParkwood HospitalChloride [Moles/Vol]108 mmol/E539-205ZxzjvcaogBellevue HospitalCO2 [Moles/Vol]24 mmol/T75-89GmgqiaeevBellevue Hospital Creatinine [Mass/Vol]0.78 mg/dL0.60-1.30[facility] GFR/1.73 sq M.predicted MDRD (S/P/Bld) [Vol rate/Area]mL/min/{1.73_m2}[facility] HospitalGlucose [Mass/Vol]88.0 mg/dL74.0-118.0[facility] HospitalPotassium [Moles/Vol]3.9 mmol/L3.6-5.1FParkwood HospitalProtein [Mass/Vol]6.5 g/dL6.5-8.1FSelect Medical Specialty Hospital - Cincinnatiodium [Moles/Vol]135.0 mmol/QRki958.0-144.0[facility] HospitalUrea nitrogen [Mass/Vol]15 mg/dL8-26[facility] HospitalUrea nitrogen/Creatinine [Mass ratio]19.2 mg/mgHigh4.6-16.2FParkwood HospitalLaboratory - Hematology and Cell countson 44-22-3111UWF (Bld) [Velocity]8 mm/h0-20[facility] HospitalLeukocytes [#/volume] corrected for nucleated erythrocytes in Blood by Automated counon 73-88-0004FYW corrected for nucl RBC Auto (Bld) [#/Vol]Leukocytes [#/volume] corrected for nucleated erythrocytes in Blood by Automated coun3.5-10.5FParkwood Hospital Lymphocytes Auto (Bld) [#/Vol]on 08-13-8830Ozfqthjzulu (Bld) [#/Vol]Lymphocytes [#/volume] in Blood by Automated count1.3-2.9[facility] Lymphocytes/100 WBC Auto (Bld)on 76-62-4279Ienpzskmlas/100 WBC (Bld) Lymphocytes/100 leukocytes in Blood by Automated ihoif57-75VedxuidplClinton Memorial HospitalH Auto (RBC) [Entitic mass]on 21-49-4020KVQ (RBC) [Entitic mass] MCH [Entitic mass] by Automated bocoz00-21RbhmbsfnaBellevue HospitalMCHC Auto (RBC) [Mass/Vol]on 74-00-9418MQYQ (RBC) [Mass/Vol]MCHC [Mass/volume] by Automated -37TmjohdqosBellevue HospitalMCV Auto (RBC) [Entitic vol]on 14-06-8443CJD (RBC) [Entitic vol]MCV [Entitic volume] by Automated count 81-100B[facility] HospitalMonocytes Auto (Bld) [#/Vol]on 01-14-2024 Monocytes (Bld) [#/Vol]Automated blood monocyte count0.0-0.8[facility] HospitalMonocytes/100 WBC Auto (Bld)on 60-99-0450Xoyawymdf/100 WBC (Bld) Automated monocyte %1-12[facility] HospitalNeutrophils Auto (Bld) [#/Vol]on 70-55-5686Tlwyvsuntpg (Bld) [#/Vol]Neutrophils [#/volume] in Blood by Automated count1.5-9.2FParkwood HospitalNeutrophils/100 WBC Auto (Bld)on 30-14-6331Iovobpeoota/100 WBC (Bld)Automated neutrophil %44-88B[facility]vue HospitalNo Panel Informationon 32-10-5398Hgw Manual Differential Auto AutoBellevue HospitalEosinophils # (Auto)0.1 x100.0-0.4 [facility] HospitalOsmolality270 mOsm/LFParkwood HospitalPlatelet mean volume Auto (Bld) [Entitic vol]on 14-46-1534Hqayykbg mean volume (Bld) [Entitic vol]Platelet mean volume [Entitic volume] in Blood by Automated count6.3-10.2FParkwood HospitalPlatelets Auto (Bld) [#/Vol]on 87-04-1858Inqmmokjj (Bld) [#/Vol]Platelets [#/volume] in Blood by Automated -257DcsknsxfxBellevue HospitalRBC Auto (Bld) [#/Vol]on 34-16-7897YAH (Bld) [#/Vol]Erythrocytes [#/volume] in Blood by Automated count 3.70-5.30Berger Hospitaled Rateon 31-39-4610Fgh Rate8 mm/hr [place] Falls058 Wolf StreetComment on above:Performed By: #### [id number], 8813227, 3856535906, 3614698777, 5912365, 08160091, 2178300450 ####[facility] (DEFAULT)[address] [place] [address] 16469Mkhyb or plasma albumin/globulin mass ratioon 12-65-8683Uciwhii/Globulin [Mass ratio]Serum or plasma albumin/globulin mass ratioLow1.4-2.6FParkwood Hospital Serum or plasma anion gap determinationon 43-82-6340Huejo gap [Moles/Vol]Serum or plasma anion gap determination5.0-19.0[facility] VITAMIN B12on 91-18-6976Pwgpnaxcl (Vitamin B12) [Mass/Vol]303 pg/mL232 - 1245 pg/mLNOMS HealthcareComment on above:Performed at: [facility] LabBeaumont [facility] [address] [place] [id number] Shock Absorber Installer: Theron Roblero PhD, Phone: [phone] [facility] CBC WITH AUTO DIFFon 09-42-1948UAAMABBWM ABSOLUTE AUTO0.1NOMS HealthcareBasophils/100 WBC (Bld)0.8 %0.2 - 2.0 %[facility] Eosinophils/100 WBC (Bld)1.5 %0.9 - 7.0 %[facility] HospitalErythrocyte distribution width (RBC) [Ratio]13.7 %11.0 - 15.0 %[facility] HospitalHematocrit (Bld) [Volume fraction]41.5 %36.0 - 48.0 %[facility] HospitalHemoglobin (Bld) [Mass/Vol]12.9 g/dL 12.0 - 16.0 g/dLSoutheast Missouri HospitalIMMATURE GRANULOCYTES ABS AUTO0.02NOFreeman Neosho Hospital Immature granulocytes/100 WBC (Bld)0.3 %0.0 - 0.5 %[facility] HospitalInterpretation and review of laboratory resultsAbnormalSoutheast Missouri HospitalLYMPHOCYTES ABSOLUTE AUTO2.5NOMS [place]ostoria City HospitalLymphocytes/100 WBC (Bld)34.0 %20.5 - 60.0 %[facility] HospitalH (RBC) [Entitic mass]27.4 pg26.7 - 34.0 pgSt. Lukes Des Peres HospitalHC (RBC) [Mass/Vol]31.1 g/dL29.9 - 35.2 g/dLSt. Lukes Des Peres HospitalV (RBC) [Entitic vol]88.3 fL 81.0 - 99.0 fLSoutheast Missouri HospitalMONOCYTES ABSOLUTE AUTO0.4NOFreeman Neosho Hospital Monocytes/100 WBC (Bld)5.9 %1.7 - 12.0 %[facility] HospitalNEUTROPHILS ABSOLUTE AUTO 4.2NOMS [facility] City HospitalNeutrophils/100 WBC (Bld)57.5 %43.0 - 75.0 %[facility] Platelet mean volume (Bld) [Entitic vol]8.7 fLLow9.5 - 13.5 fLSoutheast Missouri HospitalTB EO #0.1NOMS [facility]ostoria City HospitalTB [id number] Francis Hospital & [facility] Services RBC4.70NOMS [facility] City HospitalTB WBC 7.3NOMS [place] City HospitalCLINISYNCNParkland Health CenterMLR HEMOGLOBIN A1Con 11-04-9016Tovgwxa [Mass/Vol]97 mg/dLSoutheast Missouri HospitalHbA1c (Bld) [Mass fraction]5.0 %4.5 - 6.2 %S[facility] Missouri HospitalComment on above:ADA RECOMMENDED LIMIT 4.0 - 6.0 ADA THERAPEUTIC TARGET < 7.0 ACTION SUGGESTED > 7.0 CLINISYNCNOMS HealthcareHCG ( test) Ql (U)on 61-65-3939Wfop Test, Ur NegativeNOAscension St. Michael HospitalLon 27-12-8671BXbieloiw: [id number] Received: 12/07/23 Status: NATHAN Burnsroberto Num: [id number] Spec Type: Surgical Subm Dr: Sanjeev Lopez Tissues: A Endometrium - Biopsy (EMBX) Procedures: HE/2, Gross/Micro L4 Age/ Patient Sex Location Account Attending Physician Karuna Dumont 43/F [place] [id number] Sanjeev Lopez SPEC NUM: [id number] RECD: 12/07/23 STATUS: NATHAN GUZMÁN NUM: [id number] GENEVA: 12/06/23- SUBM DR: Sanjeev Lopez ENTERED: 12/07/[address] [facility] [address]: Bert,Lab SPEC TYPE: Surgical DEPT: ROLDAN THOMPSON ENTERED BY: [id number] RECV BY: [id number] ORDERED: HE/2, Gross/Micro L4 ORDERED: HE/2, Gross/Micro [...] are performed supporting the above interpretation Specimen: [id number] Received: 12/07/23 Status: NATHAN Guzmán Num: [id number] Spec Type: Surgical Subm Dr: Sanjeev Lopez Tissues: A Endometrium - Biopsy (EMBX) Procedures: Cheyanne HERNANDEZ/Kwame L4 Patient: JuliaKaruna hart Radha [id number] (Continued) Specimen: [id number] Received: 12/07/23 (Continued) Signed (signature on file) Frida Kirby MD 12/12/23 2158 Specimen: [id number] Received: 12/07/23 Status: NATHAN Guzmán Num: [id number] Spec Type: Surgical Subm Dr: Sanjeev Lopez Tissues: A Endometrium - Biopsy (EMBX) Procedures: MELANIECheyanne Torres/Kwame L4 Patient: Karuna Dumont [id number] (Continued) Specimen: [id number] Received: 12/07/23 (Continued) CPT Codes 01383 Specimen: [id number] Received: 12/07/23 Status: NATHAN Guzmán Num: [id number] Spec Type: Surgical Subm Dr: Sanjeev Lopez Tissues: A Endometrium - Biopsy (EMBX) Procedures: HE/2, Gross/Micro L4 Patient: Karuna Dumont [id number] (Continued) Signed (signature on file) Elia-Blake Kirby MD 12/12/[address] [place] [address] Physician GroupALL DHEA SULFATEon 67-64-3009NROK-SULFATE 40.8 ug/pISexivfhw85.3 - 279.2 ug/dLNOMS HealthcareMETRO SEX BINDING HORMONE (SHBG), TESTOSTERONE, FREE AND BIOAVAILABLEon 37-32-1496ZUG HORM BINDING GLOB, SERUM60.9 nmol/L24.6 - 122.0 nmol/LNOMS HealthcareComment on above:Performed at: [facility] [address] [id number] Shock Absorber Installer: Theron Roblero PhD, Phone: [phone] No Panel Informationon 55-29-7844Fevvfznoqjapum and review of laboratory results AbnormalNOMS HealthcareCLINISYNCNOMS HealthcareSRMCOH TESTOSTERONE FREE/TOT EQUILIBon 28-37-6164GZNG TESTOSTERONE(DIRECT)<0.20.0 - 4.2 pg/mLNOMS Healthcare Comment on above:Performed at: [facility] [address] [id number] Shock Absorber Installer: Theron Roblero PhD, Phone: [phone] Performed at: [address] [id number] Shock Absorber Installer: Katelynn Macdonald MD, Phone: [phone] Testosterone [Mass/Vol]ng/dLAbnormal8 - 60 ng/dLNOIL HealthcareFree testosterone measurement by LC-MS/MSon 93-15-6096Cypbcqyaydlp Free [Mass/Vol]<0.2 pg/mL 0.0-4.2FParkwood HospitalComment on above:Performed at: [facility] LabcoChristian Health Care CenterOvsaey[address] [place], [place] [id number] Director: Theron Roblero PhD, Phone: [phone] at: [address] [place], [place] [id number] Director: Katelynn Macdonald MD, Phone: [phone] Panel Informationon 27-43-9170Lovpklffjgqczuyndifqwm Lwmqsuj38.8 ug/zUEtmgswmb82.3-279.2FSelect Medical Specialty Hospital - Cincinnatiex Hormone Binding Alutahlt44.9 nmol/L24.6-122.0B[facility]vue HospitalComment on above: Performed at: [employer] LabAfricasanaMaria Ville [id number] [place], [place] [id number] Director: Theron Roblero PhD, Phone: [phone] Level<3 ng/dL Abnormal8-60Bellevue HospitalMM TOMOSYNTHESIS DIAGNOSTIC LTon 72-55-8955[place]ah[place] [address] Mammography Report Signed Patient: KARUNA DUMONT MR#: [id number] : 1980 Acct:[id number] Age/Sex: 42 / F ADM Date: 11/15/23 Loc: MAMMO Attending Dr: Sanjeev Lopez D.O. Ordering Physician: Sanjeev Lopez D.O. Results: Date of Service: 11/15/23 Follow Up: Procedure(s): MM tomosynthesis diagnostic LT Accession Number(s): [id number] cc: Johnathon Winter M.D.; Sanjeev Lopez D.O. Patient Name: KARUNA DUMONT MR#: [id number] : 1980 Exam Date: 11/15/2023 Ordering Doctor: [...] stomach cancer at age 67. LOCATION: [facility] BREAST COMPOSITION: There are scattered areas [...] Signed By: 11/15/23 1126 DD/ 1125 TD/TT: Solar Sales Representative And Assessor:TBHRadiology, Radiologist, - 11/15/2023 [place] [address] Mammography Report Signed Patient: KARUNA DUMONT MR#: [id number] : 1980 Acct:[id number] Age/Sex: 42 / F ADM Date: 11/15/23 Loc: MAMMO Attending Dr: Sanjeev Lopez D.O. Ordering Physician: Sanjeev Lopez D.O. Results: Date of Service: 11/15/23 Follow Up: Procedure(s): MM tomosynthesis diagnostic LT Accession Number(s): [id number] cc: Johnathon Winter M.D.; Sanjeev Lopez D.O. Patient Name: KARUNA DUMONT MR#: [id number] : 1980 Exam Date: 11/15/2023 Ordering Doctor: [...] stomach cancer at age 67. LOCATION: [facility] BREAST COMPOSITION: There are scattered areas [...] Signed By: 11/15/23 1126 DD/ 1125 TD/TT: Solar Sales Representative And Assessor: [facility] HospitalRadiology Study observation (narrative)[facility] TOMOSYNTHESIS DIAGNOSTIC LTOrdered By: Radiologist Radiology on 18-35-2306ZTLCSoutheast Missouri Hospital Work Phone: aLL CBC WITH AUTO DIFFon 50-25-5255LDMNSUURU ABSOLUTE AUTO0.1NOMS HealthcareBasophils/100 WBC (Bld)1.1 %0.2 - 2.0 %[facility] Eosinophils/100 WBC (Bld)2.2 %0.9 - 7.0 %[facility] HospitalErythrocyte distribution width (RBC) [Ratio]14.5 %11.0 - 15.0 %[facility] HospitalHematocrit (Bld) [Volume fraction]39.8 %36.0 - 48.0 %[facility] HospitalHemoglobin (Bld) [Mass/Vol]12.6 g/dL 12.0 - 16.0 g/dLSoutheast Missouri HospitalIMMATURE GRANULOCYTES ABS AUTO0.01NOMS [facility] Immature granulocytes/100 WBC (Bld)0.2 %0.0 - 0.5 %[facility] HospitalLYMPHOCYTES ABSOLUTE AUTO1.8NOMS HealthcareLymphocytes/100 WBC (Bld)33.3 %20.5 - 60.0 %[facility] HospitalH (RBC) [Entitic mass]27.9 pg26.7 - 34.0 pgNORanken Jordan Pediatric Specialty HospitalHC (RBC) [Mass/Vol]31.7 g/dL29.9 - 35.2 g/dLSt. Lukes Des Peres HospitalV (RBC) [Entitic vol]88.1 fL 81.0 - 99.0 fLSoutheast Missouri HospitalMONOCYTES ABSOLUTE AUTO0.3[facility] Monocytes/100 WBC (Bld)5.4 %1.7 - 12.0 %[facility] HospitalNEUTROPHILS ABSOLUTE AUTO 3.2NOMS [facility] City HospitalNeutrophils/100 WBC (Bld)57.8 %43.0 - 75.0 %[facility] Platelet mean volume (Bld) [Entitic vol]9.7 fL9.5 - 13.5 fLSoutheast Missouri HospitalTBH EO #0.1NOMS [facility] [id number] Francis Hospital & Health Services RBC4.52NOSaint Francis Hospital & Health Services WBC5.5 [facility] HospitalALL THYROID STIM HORMONEon 24-11-5999ATV Qn1.497 m[IU]/LNOMS Fostoria City HospitalALL THYROXINE (T4) FREEon 38-58-9374Iaiw T4 [Mass/Vol]1.24 ng/dL0.76 - 1.46 ng/dLSoutheast Missouri HospitalCLINISYNCNParkland Health CenterActivated partial thromboplastin time (aPTT) in platelet poor plasma by coagulation aon 10-25-2023 aPTT Coag (PPP) [Time]29.5 s22.3-36.2FParkwood HospitalBasophils Auto (Bld) [#/Vol]on 61-54-7115Bqveqvyco (Bld) [#/Vol]0.1 10 3/uL0.0-0.1 [facility] HospitalBasophils/100 WBC Auto (Bld)on 10-25-2023 Basophils/100 WBC (Bld)1.1 %0.2-2.0B[facility] HospitalCCF APTTon 50-37-1843nBDW Coag (Bld) [Time]29.5 sNOMS HealthcareEosinophils/100 WBC Auto (Bld)on 33-72-2239Trqfhkvvjcb/100 WBC (Bld)2.2 %0.9-7.0[facility] HospitalErythrocyte distribution width Auto (RBC) [Ratio]on 10-25-2023 Erythrocyte distribution width (RBC) [Ratio]14.5 %11.0-15.0B[facility] HospitalGlucose mean value [Mass/volume] in Blood Estimated from glycated hemoglobinon 80-13-4004Nlgdihx glucose Estimated from glycated hemoglobin (Bld) [Mass/Vol]88 mg/dLBellevue HospitalHematocrit Auto (Bld) [Volume fraction]on 50-48-1289Dnpeirrgvg (Bld) [Volume fraction]39.8 %36.0-48.0 [facility] HospitalHemoglobin [Mass/volume] in Bloodon 10-25-2023 Hemoglobin (Bld) [Mass/Vol]12.6 g/dL12.0-16.0[facility] INR in Platelet poor plasma by Coagulation assayon 66-78-7415QVX Coag (PPP) [Relative time]0.99 {INR}[facility]vue HospitalComment on above: DESIRED INR:2.0-3.0 CONDITIONS NOT LISTED BELOW2.5-3.5 FOR PROSTHETIC HEART VALVE REPLACEMENT2.5-3.5 RECURRENT THROMBOSISLaboratory - Chemistry and Chemistry - challengeon 07-61-8925Hqoq T4 [Mass/Vol]1.24 ng/dL0.76-1.46B[facility]vue HospitalTSH Qn1.497 m[IU]/L0.358-3.740B[facility]vue HospitalLaboratory - Hematology and Cell countson 95-71-8046TwZ7s (Bld) [Mass fraction]4.7 %4.5-6.2FParkwood HospitalComment on above:ADA RECOMMENDED LIMIT 4.0 - 6.0ADA THERAPEUTIC TARGET < 7.0ACTION SUGGESTED> 7.0 Immature granulocytes/100 WBC (Bld)0.2 %0.0-0.5FParkwood Hospital Leukocytes [#/volume] corrected for nucleated erythrocytes in Blood by Automated counon 33-60-6431NKN corrected for nucl RBC Auto (Bld) [#/Vol]5.5 10 3/uL 4.0-11.0[facility] HospitalLymphocytes Auto (Bld) [#/Vol]on 02-47-7303Wzcifqeanxf (Bld) [#/Vol]1.8 10 3/uL1.2-3.8[facility] HospitalLymphocytes/100 WBC Auto (Bld)on 62-20-9929Pyqofqzpeax/100 WBC (Bld)33.3 % 20.5-60.0[facility]H Auto (RBC) [Entitic mass]on 49-90-1100NDD (RBC) [Entitic mass]27.9 pg26.7-34.0[facility] HospitalMCHC Auto (RBC) [Mass/Vol]on 63-27-1289[facility] (RBC) [Mass/Vol]31.7 g/dL 29.9-35.2FSt. John of God HospitalV Auto (RBC) [Entitic vol]on 44-62-0501BSG (RBC) [Entitic vol]88.1 fL81.0-99.0[facility] HospitalMonocytes Auto (Bld) [#/Vol]on 00-78-8475Ydckhtfnd (Bld) [#/Vol]0.3 10 3/uL0.3-0.8[facility] HospitalMonocytes/100 WBC Auto (Bld)on 22-37-8510Jbknfzisd/100 WBC (Bld)5.4 %1.7-12.0[facility] Neutrophils Auto (Bld) [#/Vol]on 55-91-0137Nvjrszlazfn (Bld) [#/Vol]3.2 10 3/uL 1.4-6.5FParkwood HospitalNeutrophils/100 WBC Auto (Bld)on 25-66-6321Ovjdkeciceq/100 WBC (Bld)57.8 %43.0-75.0Bellevue HospitalNo Panel Informationon 73-56-9525LMEZEMEDQBTBK HealthcareCLINISYNCNOMS HealthcareEosinophils # (Auto)0.1 10 3/uL0.0-0.7FParkwood HospitalHuman Chorionic Gonadotropin, Quant<1 mIU/mLBellevue HospitalComment on above:5-50 0.2-1 GRLP95-892 1-2 TWVXV565-4,000 2-3 GCJOT621- 10,000 3-4 WEEKS1,000-50,000 4-5 WEEKS10,000-100,000 5-6 WEEKS15,000-200,000 6-8 WEEKS10,000-100,000 2-3 MONTHSImmature Granulocyte # (Auto)0.01 10 3/uL 0.00-0.03Bellevue HospitalPlatelet mean volume Auto (Bld) [Entitic vol]on 67-13-0001Sszsuwja mean volume (Bld) [Entitic vol]9.7 fL9.5-13.5 [facility] HospitalPlatelets Auto (Bld) [#/Vol]on 10-25-2023 Platelets (Bld) [#/Vol]300 10 3/uL440-411FeyzkkuakBellevue Hospital Prothrombin time (PT)on 18-60-3937EO Coag (PPP) [Time]10.5 s9.0-11.6FParkwood HospitalRBC Auto (Bld) [#/Vol]on 26-50-5275CZO (Bld) [#/Vol]4.52 10 6/uL4.20-5.40Berger HospitalRMCOH PROTHROMBIN TIME INR W/O COUMon 50-00-3862IA Coag (PPP) [Time]10.5 [facility] HealthcareTB INR0.99NOIL HealthcareComment on above:DESIRED INR: 2.0-3.0 CONDITIONS NOT LISTED BELOW 2.5-3.5 FOR PROSTHETIC HEART VALVE REPLACEMENT 2.5-3.5 RECURRENT THROMBOSIS TBH PREG QUANT HCGon 58-85-9543VOG QUANTITATIVE<1mIU/mLNOMS HealthcareComment on above:5-50 0.2-1 WEEK 50-500 1-2 WEEKS 100-5,000 2-3 WEEKS 500-10,000 3-4 WEEKS 1,000-50,000 4-5 WEEKS 10,000-100,000 5-6 WEEKS 15,000-200,000 6-8 WEEKS 10,000-100,000 2-3 MONTHS US PELVIS W/ TRANSVAGINALon 61-84-6184[address] [address] Ultrasound Report Signed Patient: KARUNA DUMONT MR#: [id number] : 1980 Acct:[id number] Age/Sex: 42 / F ADM Date: 10/25/23 Loc: NOMS Attending Dr: Sanjeev Lopez D.O. Ordering Physician: Sanjeev Lopez D.O. Date of Service: 10/25/23 Procedure(s): US pelvis w/ transvaginal Accession Number(s): [id number] cc: Johnathon Winter M.D.; Sanjeev Lopez D.O. [place] [phone] Patient Name: KARUNA DUMONT MRN: TBH:[id number] date: 1980 Sex: F Assigned Patient Location: [facility] Current Patient Location: LAB Accession/Order Number: [id number] Exam Date: 10/25/2023 09:07 Report Date: 10/25/2023 [...] Signed By: 10/25/23 1113 DD/ 1110 TD/TT: Solar Sales Representative And Assessor:TBHRadiology, Radiologist, - 10/25/2023 [place] [address] Ultrasound Report Signed Patient: KARUNA DUMONT MR#: [id number] : 1980 Acct:[id number] Age/Sex: 42 / F ADM Date: 10/25/23 Loc: NOMS Attending Dr: Sanjeev Lopez D.O. Ordering Physician: Sanjeev Lopez D.O. Date of Service: 10/25/23 Procedure(s): US pelvis w/ transvaginal Accession Number(s): [id number] cc: Johnathon Winter M.D.; Sanjeev Lopez D.O. [place] [phone] Patient Name: KARUNA DUMONT MRN: TBH:[id number] date: 1980 Sex: F Assigned Patient Location: NOMS Current Patient Location: LAB Accession/Order Number: [id number] Exam Date: 10/25/2023 09:07 Report Date: 10/25/2023 [...] Signed By: 10/25/23 1113 DD/ 1110 TD/TT: Solar Sales Representative And Assessor: SCOOTER [facility]ostoria City HospitalRadiology Study observation (narrative)NOM HealthcareUS PELVIS W/ TRANSVAGINALOrdered By: Radiologist Radiology on 96-91-9004TNUESoutheast [facility] Hospital Work Phone: coding Summaryon 17-14-9860Wbhoce SummaryHTMLBase 64 JcdwjgpqATr3cLe+PGhlYWQ+LR9ZUKDyY41qyVTvzE6wN4YKRZxDMlhmPGGUIKmBToOwlkZyUY7ajCOu ZXJu [file] ZTo (more content not included)...[facility] HospitalED Clinical Summaryon 71-73-0042BT[facility] ? [facility] [address] [place], [place] [id number] Clinical Summary PERSON INFORMATION Name: KARUNA DUMONT Age: 42 Years Sex: FEMALE : 1980 MRN: Acct#: Visit Reason: Skin problem; RASH ON ARMS Arrival: 08/23/2023 14:45:23 Discharge: 08/23/2023 15:20:00 LOS: 000 00:35 Check In: 08/23/2023 14:45:23 Checkout: 08/23/2023 15:20:00 Address: [address] [place] [address] PCP: Johnathon Winter MD PROVIDER INFORMATION Provider Role Assigned Unassigned Phuong Oseguera PRODUCTION TROUBLESHOOTER Nurse 08/23/2023 14:46:59 Yissel Resendez PA-C ED [...] Follow-Up: With: Address: When: Johnathon Winter MD [address] [place] [address] [phone] DIAGNOSIS: 1:Rash and nonspecific skin eruption; 2:Elevated blood pressure reading without diagnosis of hypertension Patient Understands: Comment:[facility] HospitalED Patient Summaryon 78-60-2082HO Patient Summary [facility] ? Urgent Care [address] [place] [address] PATIENT DISCHARGE INSTRUCTIONS Patient Information Name: KARUNA DUMNOT Age: 42 Years Date of : 1980 Reason For Visit: Skin problem; RASH ON ARMS Arrival Time: 08/23/2023 14:45:23 Primary Care Physician: Johnathon Winter MD Attending Physician: Yissel Resendez PA-C Comment: Patient Education With: Address: When: Johnathon Winter MD [address] [place] [address] [phone] Rash, Adult A rash is a change [...] with your condition: Medicine Take or apply sscq-mxv-knitghi and prescription medicines only as told by [...] a bath with: ? Epsom salts. Follow surgical elastic knitter instructions on the packaging. You can get these at your local pharmacy or grocery store. ? Baking soda. Pour a small amount into the bath as told by your health care provider. ? Colloidal oatmeal. Follow surgical elastic knitter instructions on the packaging. You can get this at your local pharmacy or grocery store. ? Try applying baking soda paste to your skin. Stir water into baking soda until it reaches a paste-like consistency. ? Try applying calamine lotion. This is an gygm-fgn-esnzfef lotion that helps to relieve itchiness. ? [...] rash from spreading. ? Take or apply nxyu-smn-ttujjdi and prescription medicines only as told by your health care provider. ? Contact a health care provider if you have new or worsening symptoms. ? Keep all follow-up visits as told by yo (more content not included)...Normal [facility] CenterALL DHEA SULFATEon 90-89-8945NQTS-KYZRRVO475.0 ug/dL57.3 - 279.2 ug/dLSoutheast Missouri HospitalALL ESTRONE(E1)on 27-68-6970NTGDRGCDS63.9 pg/mL.[facility] HealthcareComment on above:Adult Female Range Follicular phase 12.5 - 166.0 Ovulation phase 85.8 - 498.0 Luteal phase 43.8 - 211.0 Postmenopausal <6.0 - 54.7 1st trimester 215.0 - >4300.0 Skylar ECLIA methodology ALL PROGESTERONEon 22-29-2011TBFFWNVSWIKT9.1 ng/mL.[facility] HealthcareComment on above:Follicular phase 0.1 - 0.9 Luteal phase 1.8 - 23.9 Ovulation phase 0.1 - 12.0 First trimester 11.0 - 44.3 Second trimester 25.4 - 83.3 Third trimester 58.7 - 214.0 Postmenopausal 0.0 - 0.1 Performed at: [facility] Lab[address] [id number] Shock Absorber Installer: Theron Roblero PhD, Phone: [phone] ALL T3 REVERSEon 25-41-1198LKKPYXC T3, SERUM23.0 ng/dL9.2 - 24.1 ng/dLNOMS HealthcareComment on above:This test was developed and its performance characteristics determined by [employer]. It has not been cleared or approved by the Food and Drug Administration. Performed at: [address] [id number] Shock Absorber Installer: Katelynn Macdonald MD, Phone: [phone] METRO SEX BINDING HORMONE (SHBG), TESTOSTERONE, FREE AND BIOAVAILABLEon 91-68-8199ZLC HORM BINDING GLOB, SERUM49.1 nmol/L24.6 - 122.0 nmol/LNOMS HealthcareComment on above:Performed at: [address] [id number] Shock Absorber Installer: Theron Roblero PhD, Phone: [phone] No Panel Informationon 85-56-2769NXHJCKEGUCCRZ HealthcareSROH TESTOSTERONE FREE/TOT EQUILIBon 96-31-6748AIPM TESTOSTERONE(DIRECT)0.6 pg/mL0.0 - 4.2 pg/mL NOMS HealthcareComment on above:Performed at: [address] [id number] Shock Absorber Installer: Theron Roblero PhD, Phone: [phone] Performed at: [address] [id number] Shock Absorber Installer: Katelynn Macdonald MD, Phone: [phone] Testosterone [Mass/Vol]22 ng/dL8 - 60 ng/dLNOIL HealthcareTB THYROID ANTIBODIES on 09-24-4051KXRVUBEGUHOES ANTIBODY<1.0NOMS HealthcareComment on above: Thyroglobulin Antibody measured by [employer] Methodology Performed at: [address] [id number] Shock Absorber Installer: Theron Roblero PhD, Phone: [phone] THYROID PEROXIDASE (TPO) EO06KHSI HealthcareUH SEROTONINon 80-78-1902LUOLMTQTD, AYPXE498 ng/mL31 - 207 ng/mLNOMS HealthcareComment on above:This test was developed and its performance characteristics determined by [employer]. It has not been cleared or approved by the Food and Drug Administration. Performed at: [address] [id number] Shock Absorber Installer: Katelynn Macdonald MD, Phone: [phone] MM POST BIOPSY LTon 56-46-7384Lwv[address] [address] Mammography Report Signed Patient: KARUNA DUMONT MR#: [id number] : 1980 Acct:[id number] Age/Sex: 42 / F ADM Date: 05/23/23 Loc: MAMMO Attending Dr: Sanjeev Lopez D.O. Ordering Physician: Sanjeev Lopez D.O. Results: Date of Service: 05/23/23 Follow Up: Procedure(s): MM post biopsy LT Accession Number(s): [id number] cc: Johnathon Winter M.D.; Sanjeev Lopez D.O. Patient Name: KARUNA DUMONT MR#: [id number] : 1980 Exam Date: 05/23/2023 Ordering Doctor: [...] M.D. Signed By: 06/09/23902 DD/ 1 TD/TT: Solar Sales Representative And Assessor:TBHRadiology, Radiologist, - 06/09/2023 [place] [address] Mammography Report Signed Patient: KARUNA DUMONT MR#: [id number] : 1980 Acct:[id number] Age/Sex: 42 / F ADM Date: 05/23/23 Loc: MAMMO Attending Dr: Sanjeev Lopez D.O. Ordering Physician: Sanjeev Lopez D.O. Results: Date of Service: 05/23/23 Follow Up: Procedure(s): MM post biopsy LT Accession Number(s): [id number] cc: Johnathon Winter M.D.; Sanjeev Lopez D.O. Patient Name: KARUNA DUMONT MR#: [id number] : 1980 Exam Date: 05/23/2023 Ordering Doctor: [...] M.D. Signed By: 06/09/23902 DD/ 1 TD/TT: Solar Sales Representative And Assessor: SCOOTER [facility] HospitalRadiology Study observation (narrative)[facility] POST BIOPSY LTOrdered By: Radiologist Radiology on 15-08-6753IOVK Cover Work Phone: mm STEREOTACTIC LOC LTon 27-02-9043Szv[place] [address] Mammography Report Signed Patient: KARUNA DUMONT MR#: [id number] : 1980 Acct:[id number] Age/Sex: 42 / F ADM Date: 05/23/23 Loc: MAMMO Attending Dr: Sanjeev Lopez D.O. Ordering Physician: Sanjeev Lopez D.O. Results: Date of Service: 05/23/23 Follow Up: Procedure(s): MM stereotactic loc LT Accession Number(s): [id number] cc: Johnathon Wniter M.D.; Sanjeev Lopez D.O. Patient Name: KARUNA DUMONT MR#: [id number] : 1980 Exam Date: 05/23/2023 Ordering Doctor: [...] M.D. Signed By: 06/09/23901 DD/ 0 TD/TT: Solar Sales Representative And Assessor:TBHRadiology, Radiologist, MD - 06/09/2023 [place] [address] Mammography Report Signed Patient: KARUNA DUMONT MR#: [id number] : 1980 Acct:[id number] Age/Sex: 42 / F ADM Date: 05/23/23 Loc: MAMMO Attending Dr: Sanjeev Lopez D.O. Ordering Physician: Sanjeev Lopez D.O. Results: Date of Service: 05/23/23 Follow Up: Procedure(s): MM stereotactic loc LT Accession Number(s): [id number] cc: Johnathon Winter M.D.; Sanjeev Lopez D.O. Patient Name: KARUNA DUMONT MR#: [id number] : 1980 Exam Date: 05/23/2023 Ordering Doctor: [...] M.D. Signed By: 06/09/23901 DD/ 0 TD/TT: Solar Sales Representative And Assessor: SCOOTER HealthcareRadiology Study observation (narrative)[facility] STEREOTACTIC LOC LTOrdered By: Radiologist Radiology on 02-49-9591FCBJ Healthcare Work Phone: Lob 24-73-9331YGdxupfml: [phone] Received: 05/24/231322 Status: NATHAN Guzmán Num: [id number] Spec Type: Surgical Subm Dr: Tee Peterson MD Tissues: A BREAST CORE NO CALCS (LT BREAST) Procedures: HE/4, Gross/Micro L4, AE1-AE3/2 Age/ Patient Sex Location Account Attending Physician JuliaKaruna Radha 42/F LABELL [id number] Tee Peterson MD SPEC NUM: [id number] RECD: 05/24/23 STATUS: NATHAN GUZMÁN NUM: [id number] GENEVA: 05/23/23- SUBM DR: Tee Peterson MD ENTERED: 05/24/[address] [facility] [address]: Bert,Lab SPEC TYPE: Surgical DEPT: [...] Time: 0.10 Formalin Fixation Time: 28.50 Specimen: [id number] Received: 05/24/23 Status: NATHAN Burnsq Num: [id number] Spec Type: Surgical Subm Dr: Tee Peterson MD Tissues: A BREAST CORE NO CALCS (LT BREAST) Procedures: , Gross/Micro L4, AE1-AE3/2 Patient: Karuna Dumont [id number] (Continued) Specimen: [id number] Received: 05/24/23 (Continued) Signed (signature on file) Tootie Jordan MD 05/31/236 Specimen: [id number] Received: 05/24/23 Status: NATHAN Guzmán Num: [id number] Spec Type: Surgical Subm Dr: Tee Peterson MD Tissues: A BREAST CORE NO CALCS (LT BREAST) Procedures: , Gross/Micro L4, AE1-AE3/2 Patient: Karuna Dumont [id number] (Continued) Specimen: [id number] Received: 05/24/23 (Continued) CPT Codes 69875 Specimen: [id number] Received: 05/24/23 Status: NATHAN Guzmán Num: [id number] Spec Type: Surgical Subm Dr: Tee Peterson MD Tissues: A BREAST CORE NO CALCS (LT BREAST) Procedures: HE/4, Gross/Micro L4, AE1-AE3/2 Patient: Karuna Dumont [id number] (Continued) Signed (signature on file) Tootie Jordan MD 05/31/[address] [place] [address] Physician Group POST BIOPSY LTon 05-23-2023 [place] [address] Mammography Report Signed Patient: KARUNA DUMONT MR#: [id number] : 1980 Acct:[id number] Age/Sex: 42 / F ADM Date: 05/23/23 Loc: MAMMO Attending Dr: Sanjeev Lopez D.O. Ordering Physician: Sanjeev Lopez D.O. Results: Date of Service: 05/23/23 Follow Up: Procedure(s): MM post biopsy LT Accession Number(s): [id number] cc: Johnathon Winter M.D.; Sanjeev Lopez D.O. Patient Name: KARUNA DUMONT MR#: [id number] : 1980 Exam Date: 05/23/2023 Ordering Doctor: [...] Peterson M.D. Signed By: 05/23/23 1439 DD/ 1438 TD/TT: Solar Sales Representative And Assessor:TBHRadiology, Radiologist, MD - 05/23/2023 [place] [address] Mammography Report Signed Patient: KARUNA DUMONT MR#: [id number] : 1980 Acct:[id number] Age/Sex: 42 / F ADM Date: 05/23/23 Loc: MAMMO Attending Dr: Sanjeev Lopez D.O. Ordering Physician: Sanjeev Lopez D.O. Results: Date of Service: 05/23/23 Follow Up: Procedure(s): MM post biopsy LT Accession Number(s): [id number] cc: Johnathon Winter M.D.; Sanjeev Lopez D.O. Patient Name: KARUNA DUMONT MR#: [id number] : 1980 Exam Date: 05/23/2023 Ordering Doctor: [...] Peterson M.D. Signed By: 05/23/23 1439 DD/ 1438 TD/TT: Solar Sales Representative And Assessor: SCOOTER HealthcareRadiology Study observation (narrative)SCOOTER HealthcareMM POST BIOPSY LTOrdered By: Radiologist Radiology on 65-53-7904CW[facility] Healthcare Work Phone: mm STEREOTACTIC LOC LTon 59-89-3886[place] [address] Mammography Report Signed Patient: KARUNA DUMONT MR#: [id number] : 1980 Acct:[id number] Age/Sex: 42 / F ADM Date: 05/23/23 Loc: MAMMO Attending Dr: Sanjeev Lopez D.O. Ordering Physician: Sanjeev Lopez D.O. Results: Date of Service: 05/23/23 Follow Up: Procedure(s): MM stereotactic loc LT Accession Number(s): [id number] cc: Johnathon Winter M.D.; Sanjeev Lopez D.O. Patient Name: KARUNA DUMONT MR#: [id number] : 1980 Exam Date: 05/23/2023 Ordering Doctor: [...] Signed By: 05/23/23 1438 DD/ 1437 TD/TT: Solar Sales Representative And Assessor:TBHRadiology, Radiologist, MD - 05/24/2023 [place] [address] Mammography Report Signed Patient: KARUNA DUMONT MR#: [id number] : 1980 Acct:[id number] Age/Sex: 42 / F ADM Date: 05/23/23 Loc: MAMMO Attending Dr: Sanjeev Lopez D.O. Ordering Physician: Sanjeev Lopez D.O. Results: Date of Service: 05/23/23 Follow Up: Procedure(s): MM stereotactic loc LT Accession Number(s): [id number] cc: Johnathon Winter M.D.; Sanjeev Lopez D.O. Patient Name: KARUNA DUMONT MR#: [id number] : 1980 Exam Date: 05/23/2023 Ordering Doctor: [...] M.D. Signed By: 05/23/231437 DD/ 36 TD/TT: Solar Sales Representative And Assessor: [facility] HospitalRadiology Study observation (narrative)[facility] HospitalMM STEREOTACTIC LOC LTOrdered By: Radiologist Radiology on 93-97-4188[facility] Work Phone: aLL C-PEPTIDEon 93-03-1091L-PEPTIDE, SERUM2.8 ng/mL1.1 - 4.4 ng/mLNOMS HealthcareComment on above:C-Peptide reference interval is for fasting patients. Performed at: [address] [id number] Shock Absorber Installer: Theron Roblero PhD, Phone: [phone] No Panel Informationon 94-92-8955YNBGYLSANHFQJ HealthcareTBH ESTRONEon 64-36-4700PPNMDAD, SERUM65 pg/mL27 - 231 pg/mLNOMS HealthcareComment on above: Range Adult (Premenopausal) 27 - 231 Menstrual Cycle (1-10 days) 19 - 149 Menstrual Cycle (11-20 days) 32 - 176 Menstrual Cycle (21-30 days) 37 - 200 Performed at: [address] [id number] Shock Absorber Installer: Katelynn Macdonald MD, Phone: [phone] [facility] INSULINon 10-73-3303BBTMLFE5.0NOMS HealthcareComment on above:Performed at: [address] [id number] Shock Absorber Installer: Theron Roblero PhD, Phone: [phone] CORTISOL, FREE DIALYSIS, LCMSon 73-69-9103QOQQZSKN, FREE DIALYSIS, LCMS0.787 ug/dL.[facility] HospitalComment on above:These tests were developed and their performance characteristics determined by [facility]. They have not been cleared or approved by the Food and Drug Administration. Reference Range: 8 AM 0.10 - 1.20 4 PM 0.042 - 0.872 Performed at: [employer] [address] [place] [id number] Shock Absorber Installer: Kal Archibald MD, Phone: [phone] [facility] DIAGNOSTIC MAMMO UNILAT LTon 42-24-5626IliMil[place] [address] Mammography Report Signed Patient: KARUNA DUMONT MR#: [id number] : 1980 Acct:[id number] Age/Sex: 42 / F ADM Date: 05/10/23 Loc: MAMMO Attending Dr: Sanjeev Lopez D.O. Ordering Physician: Sanjeev Lopez D.O. Results: Date of Service: 05/10/23 Follow Up: Procedure(s): MM diagnostic mammo unilat LT Accession Number(s): [id number] cc: Johnathon Winter M.D.; Sanjeev Lopez D.O. Patient Name: KARUNA DUMONT MR#: [id number] : 1980 Exam Date: 05/10/2023 Ordering Doctor: [...] stomach cancer at age 67. LOCATION: [facility] BREAST COMPOSITION: Scattered areas fibroglandular density. [...] Signed By: 05/15/23 1313 DD/ 0842 TD/TT: Solar Sales Representative And Assessor:TBHRadiology, Radiologist, - 06/07/2023 [place] [id number] Mammography Report Signed Patient: KARUNA DUMONT MR#: [id number] : 1980 Acct:[id number] Age/Sex: 42 / F ADM Date: 05/10/23 Loc: MAMMO Attending Dr: Sanjeev Lopez D.O. Ordering Physician: Sanjeev Lopez D.O. Results: Date of Service: 05/10/23 Follow Up: Procedure(s): MM diagnostic mammo unilat LT Accession Number(s): [id number] cc: Johnathon Winter M.D.; Sanjeev Lopez D.O. Patient Name: KARUNA DUMONT MR#: [id number] : 1980 Exam Date: 05/10/2023 Ordering Doctor: [...] stomach cancer at age 67. LOCATION: [facility] BREAST COMPOSITION: Scattered areas fibroglandular density. [...] Signed By: 05/15/23 1313 DD/ 0842 TD/TT: Solar Sales Representative And Assessor: [place] AveChelo Cover Panel InformationOrdered By: Radiologist Radiology on 55-68-6693WOVF Cover Work Phone: US BREAST LT LIMITEDon 28-23-2476[place] [address] Ultrasound Report Signed Patient: KARUNA DUMONT MR#: [id number] : 1980 Acct:[id number] Age/Sex: 42 / F ADM Date: 05/10/23 Loc: MAMMO Attending Dr: Sanjeev Lopez D.O. Ordering Physician: Sanjeev Lopez D.O. Date of Service: 05/10/23 Procedure(s): US breast LT limited Accession Number(s): [id number] cc: Johnathon Winter M.D.; Sanjeev Lopez D.O. Patient Name: KARUNA DUMONT MR#: [id number] : 1980 Exam Date: 05/10/2023 Ordering Doctor: [...] stomach cancer at age 67. LOCATION: [facility] BREAST COMPOSITION: Scattered areas fibroglandular density. [...] Signed By: 05/15/23 1313 DD/ 0842 TD/TT: Solar Sales Representative And Assessor:TBHRadiology, Radiologist, - 05/15/2023 [place] [address] Ultrasound Report Signed Patient: KARUNA DUMONT MR#: [id number] : 1980 Acct:[id number] Age/Sex: 42 / F ADM Date: 05/10/23 Loc: MAMMO Attending Dr: Sanjeev Lopez D.O. Ordering Physician: Sanjeev Lopez D.O. Date of Service: 05/10/23 Procedure(s): US breast LT limited Accession Number(s): [id number] cc: Johnathon Winter M.D.; Sanjeev Lopez D.O. Patient Name: KARUNA DUMONT MR#: [id number] : 1980 Exam Date: 05/10/2023 Ordering Doctor: [...] stomach cancer at age 67. LOCATION: [facility] BREAST COMPOSITION: Scattered areas fibroglandular density. [...] Signed By: 05/15/23 1313 DD/ 0842 TD/TT: Solar Sales Representative And Assessor: SCOOTER HealthcareALL T3 FREEon 25-50-6137Bdru T3 [Mass/Vol]2.67 pg/mL2.18 - 3.98 pg/mLNOMS HealthcareALL THYROID STIM HORMONEon 05-93-4892SGI Qn1.735 m[IU]/LNOMS HealthcareALL THYROXINE (T4)on 86-01-4312R2 [Mass/Vol]9.00 ug/dL4.80 - 13.90 ug/dLNOMS HealthcareALL THYROXINE (T4) FREEon 83-81-0804Ogrt T4 [Mass/Vol]1.29 ng/dL0.76 - 1.46 ng/dLNOMS HealthcareCCF FERRITINon 85-98-5035Fighlplr [Mass/Vol]40.0 ng/mL8.0 - 252.0 ng/mLNOMS HealthcareFree testosterone measurement by LC-MS/MSon 34-20-4121Igujlbdpvxcw Free [Mass/Vol]0.6 pg/mL0.0-4.2 [facility]vue HospitalComment on above:Performed at: - [facility] [address] [place], [place] [id number] Director: Theron Roblero PhD, Phone: [phone] at: - [facility] [id number] Director: Katelynn Macdonald MD, Phone: [phone] HEMOGLOBIN A1Con 18-36-4068Osgjtya [Mass/Vol]94 mg/dLNOMS SwscpiesazCiW8y (Bld) [Mass fraction]4.9 %4.5 - 6.2 %NOMS HealthcareComment on above:ADA RECOMMENDED LIMIT 4.0 - 6.0 ADA THERAPEUTIC TARGET < 7.0 ACTION SUGGESTED > 7.0 CLINISYNCNOMS HealthcareMM DIAGNOSTIC MAMMO UNILAT LTon 01-52-4394JlnMil[place] [address] Mammography Report Signed Patient: KARUNA DUMONT MR#: [id number] : 1980 Acct:[id number] Age/Sex: 42 / F ADM Date: 05/10/23 Loc: MAMMO Attending Dr: Sanjeev Lopez D.O. Ordering Physician: Sanjeev Lopez D.O. Results: Date of Service: 05/10/23 Follow Up: Procedure(s): MM diagnostic mammo unilat LT Accession Number(s): [id number] cc: Johnathon Winter M.D.; Sanjeev Lopez D.O. Patient Name: KARUNA DUMONT MR#: [id number] : 1980 Exam Date: 05/10/2023 Ordering Doctor: [...] stomach cancer at age 67. LOCATION: [facility] BREAST COMPOSITION: Scattered areas fibroglandular density. [...] Silva M.D. Signed By: 05/10/23 0843 DD/ 0842 TD/TT: Solar Sales Representative And Assessor:TBHRadiology, Radiologist, - 05/10/2023 [place] [address] Mammography Report Signed Patient: KARUNA DUMONT MR#: [id number] : 1980 Acct:[id number] Age/Sex: 42 / F ADM Date: 05/10/23 Loc: MAMMO Attending Dr: Sanjeev Lopez D.O. Ordering Physician: Sanjeev Lopez D.O. Results: Date of Service: 05/10/23 Follow Up: Procedure(s): MM diagnostic mammo unilat LT Accession Number(s): [id number] cc: Johnathon Winter M.D.; Sanjeev Lopez D.O. Patient Name: KARUNA DUMONT MR#: [id number] : 1980 Exam Date: 05/10/2023 Ordering Doctor: [...] stomach cancer at age 67. LOCATION: [facility] BREAST COMPOSITION: Scattered areas fibroglandular density. [...] Dictated By: Monserrat Silva M.D. Signed By: 05/10/23842 DD/ 1 TD/TT: Solar Sales Representative And Assessor: SCOOTER Murphy DIAGNOSTIC MAMMO UNILAT LTOrdered By: Radiologist Radiology on 47-94-7585[facility] Work Phone: No [facility] Informationon 20-16-5216FHAODCPIYVAOT HealthcareCLINISYNCNParkland Health CenterC-Peptide2.8 ng/mL1.1-4.4FParkwood HospitalComment on above:C-Peptide reference interval is for fasting patients.Performed at: - [facility] [id number] Director: Theron Roblero PhD, Phone: [phone] Dehydroepiandrosterone Ykvmwfk021.0 ug/dL57.3-279.2FParkwood HospitalFree Cortisol, Dialysis, LCMS0.787 ug/dL.[facility] Comment on above:These tests were developed and their performancecharacteristics determined by [employer]. They have not beencleared or approved by the Food and Drug Administration.Reference Range:8 AM 0.10 - 1.204 PM 0.042 - 0.872Performed at: ES [facility] [address] [place], [place] [id number] Dir martín: Kal Archiabld MD, Phone: [phone] Triiodothyronine (T3)23.0 ng/dL9.2-24.1FParkwood HospitalComment on above:This test was developed and its performance characteristicsdetermined by [employer] ([employer]). It has not been cleared orapproved by the Food and Drug Administration.Performed at: [facility] [address] [id number] Director: Katelynn Macdonald MD, Phone: [phone] Hormone Binding Junnszgk58.1 nmol/L24.6-122.0 Belle[facility] HospitalComment on above:Performed at: [address] [id number] Director: Theron Roblero PhD, Phone: [phone] Level22 ng/dL8-60[facility] Radiology Study observation (narrative)NOMS HealthcarePlasma serotonin measurement (mass/volume)on 76-14-1178Axjekszfx (P) [Mass/Vol]105 ng/jS28-119 [facility] HospitalComment on above:This test was developed and its performance characteristicsdetermined by [employer] [employer] ([employer]). It has not been cleared orapproved by the Food and Drug Administration.Performed at: [facility] [address] [id number] Director: Katelynn Macdonald MD, Phone: [phone] estrone measurementon 68-76-3250R6 [Mass/Vol]65 pg/mL 27-231[facility]vue HospitalComment on above:Range Adult (Premenopausal) 27 - 231 Menstrual Cycle (1-10 days) 19 - 149 Menstrual Cycle (11-20 days) 32 - 176 Menstrual Cycle (21-30 days) 37 - 200Performed at: [address] [place], [place] [id number] Director: Katelynn Macdonald MD, Phone: [phone] or plasma estradiol (E2) measurement (mass/volume)on 18-66-7462P6 [Mass/Vol]98.9 pg/mL.[facility] HospitalComment on above:Adult Female Range Follicular phase 12.5 - 166.0 Ovulation phase 85.8 - 498.0 Luteal phase 43.8 - 211.0 Postmenopausal <6.0 - 54.7 1st trimester 215.0 - >4300.0Roche ECLIA methodologySerum or plasma insulin measurement (units/volume)on 31-95-5138Fupzmil Qn7.0 u[iU]/mL 2.6-24.9[facility]vue HospitalComment on above:Performed at: [employer] [address] [place] [id number] Director: Theron Roblero PhD, Phone: [phone] or plasma progesterone measurement (mass/volume)on 24-94-9262Iwlhkxveuxyh [Mass/Vol]0.1 ng/mL.[facility] HospitalComment on above:Follicular phase 0.1 - 0.9 Luteal phase 1.8 - 23.9 Ovulation phase 0.1 - 12.0 First trimester 11.0 - 44.3 Second trimester 25.4 - 83.3 Third trimester 58.7 - 214.0 Postmenopausal 0.0 - 0.1Per formed at: [employer] [address] [place] [id number] Director: Theron Manley, Phone: [phone] or plasma thyroperoxidase antibody assay (units/volume)on 45-88-5040MHS Ab Qn11 [IU]/mL0-34[facility] HospitalTB GLUCOSE BLOODon 26-95-8154Jciwznx [Mass/Vol]81 mg/dL 74 - 106 mg/dLNOIL HealthcareTB VITAMIN D 25 OHon 21-58-6949IELUVDG D29.0 ng/mL NOMS HealthcareComment on above:<20 ng/mL Vit D deficient 20-<30 ng/mL Vit D insufficient 30-100 ng/mL Vit D sufficient >100 ng/mL Potential Toxicity Thyroglobulin [Mass/volume] in Serum or Plasmaon 91-63-2341Ikcndzgcjzfbi [Mass/Vol]<1.0 [IU]/mL0.0-0.9[facility]vue HospitalComment on above: Thyroglobulin Antibody measured by Sarah CoulterMethodologyPerformed at: CB - [facility] [address] [place], [place] [id number] Director: Theron Roblero PhD, Phone: [phone] TOMOSYNTHESIS SCREENING BIon 33-23-3245[address] [address] Mammography Report Signed Patient: KARUNA DUMONT MR#: [id number] : 1980 Acct:[id number] Age/Sex: 42 / F ADM Date: 04/28/23 Loc: MAMMO Attending Dr: Sanjeev Lopez D.O. Ordering Physician: Sanjeev Lopez D.O. Results: Date of Service: 04/28/23 Follow Up: Procedure(s): MM tomosynthesis screening BI Accession Number(s): [id number] cc: Johnathon Winter M.D.; Sanjeev Lopez D.O. Patient Name: KARUNA DUMONT MR#: [id number] : 1980 Exam Date: 04/28/2023 Ordering Doctor: [...] stomach cancer at age 67. LOCATION: [facility] BREAST COMPOSITION: Scattered areas fibroglandular density. [...] MD on 04/28/2023 at 12:41 Approved by: Monsrerat Silva MD on 04/28/2023 at 12:43 Dictated By: Monserrat Silva M.D. Signed By: 04/28/23 1244 DD/ 1244 TD/TT: Solar Sales Representative And Assessor:TBHRadiology, Radiologist, - 04/28/2023 [place] [address] Mammography Report Signed Patient: KARUNA DUMONT MR#: [id number] : 1980 Acct:[id number] Age/Sex: 42 / F ADM Date: 04/28/23 Loc: MAMMO Attending Dr: Sanjeev Lopez D.O. Ordering Physician: Sanjeev Lopez D.O. Results: Date of Service: 04/28/23 Follow Up: Procedure(s): MM tomosynthesis screening BI Accession Number(s): [id number] cc: Johnathon Winter M.D.; Sanjeev Lopez D.O. Patient Name: KARUNA DUMONT MR#: [id number] : 1980 Exam Date: 04/28/2023 Ordering Doctor: [...] stomach cancer at age 67. LOCATION: [facility] BREAST COMPOSITION: Scattered areas fibroglandular density. [...] Signed By: 04/28/23 1244 DD/ 43 TD/TT: Solar Sales Representative And Assessor: [facility] HospitalRadiology Study observation (narrative)[facility] HospitalMM TOMOSYNTHESIS SCREENING BIOrdered By: Radiologist Radiology on 68-74-1760[facility] Work Phone: No Panel Informationon 07-00-4357Nr acute bony abnormalities are noted [facility] CONSOLIDATEDEXAMINATION: THREE XRAY VIEWS OF THE RIGHT [...] well maintained. Soft tissue swelling. Calcaneal spurs [facility] SystemsMiller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 unreliable in many patient populations. Rapid screening tests are less sensitive than culture and if UTI is a clinical possibility, culture should be considered despite a negative urinalysis.Performed By: #### UAX, UMSUADO ####[address] [id number] Lab Director: Estevan Corcoran MDUrine RBC's2 TO 0Zwwcqj3-3Bceho [facility] HospitalComment on above:Performed By: #### KEVIN, TERESAO ####[address] [id number] Lab Director: Estevan Corcoran MDUrine WBC's2 TO 3Nblldp6-1Okfhu [facility] HospitalComment on above:Performed By: #### UAStephanie, UMICAO ####[address] [address] Lab Director: JONI Crabtree LUMBAR SPINE WO CONTRASTon 19-65-0429Wcskxirpctjw disc disease at L4-L5 and L5-S1. At L4-L5, there is a broad-based left paracentral left foraminal disc protrusion/herniation. At L5-S1, there is a partially calcified left paracentral disc herniation with slight inferior extension. The left-sided disc disease is of uncertain etiology in this patient with history of right leg pain. Follow-up MRI may be helpful. [facility] RIS CONSOLIDATEDEXAMINATION: CT OF THE LUMBAR [...] SOFT TISSUES/RETROPERITONEUM: No paraspinal mass is seen. [facility] HospitalBoyd delgado MD - 08/19/2021 EXAMINATION: [...] leg pain. Follow-up MRI may be helpful. [employer] Phone: radiology Study observation (narrative)[employer] Phone: cT LUMBAR SPINE WO CONTRASTOrdered By: Boyd Beatty on 06-46-3344RachoBayhill Therapeutics Phone: Vital Signs Date TimeVital SignValuePerforming WwfovrwwgExzfjpia00-69-0109 09:00-0400Body .1 Kaylasylvester Glow DPM Work Phone: N2CareAxwuuznaxl72-96-2071 09:00-0400Body mass index (BMI) [Ratio]31.62 kg/e1Anfvder Glow DPM Work Phone: N2CareAyxnmveaye94-73-0054 09:00-0400Body bdggna84.18 kgGeorgi Glow DPM Work Phone: N2CareVgkgpbgdpo70-14-3252 08:55-0400Body gepeth963.1 Kaylasylvester Maria Del Rosarioher DPM Work Phone: N2CareZtvkhxptaq68-86-0185 08:55-0400Body mass index (BMI) [Ratio]31.62 kg/e2Exksnnh Rusher DPM Work Phone: [phone])[address] [place], [place] 1137307-29-2025 08:55-0400Body cubxpk26.18 kgAnthony Rusher DPM Work Phone: [phone])[address] [place], [place] 1137306-17-2025 09:57-0400Body ogumqn631.1 cmAnthony Rusher DPM Work Phone: [phone])[address] [place], [place] 1137306-17-2025 09:57-0400Body mass index (BMI) [Ratio]31.62 kg/n6Voczpbp Rusher DPM Work Phone: [phone])[address] [place], [place] 1137306-17-2025 09:57-0400Body rzakkv84.18 kgAnthony Rusher DPM Work Phone: [phone])[address] [place], [place] 1137306-04-2025 08:26-0400Body igvkwj786.1 cmAnthony Rusher DPM Work Phone: [phone])[address] [place], [place] 1137306-04-2025 08:26-0400Body mass index (BMI) [Ratio]31.62 kg/z5Taizasu Rusher DPM Work Phone: 1(717)[address] [place], [place] 1137306-04-2025 08:26-0400Body xnshey80.18 kgAnthony Rusher DPM Work Phone: 1(847)[address] [place], [place] 1137305-21-2025 13:09-0400Body ddedbr383.1 cmAnthony Rusher DPM Work Phone: [phone])[address] [place], [place] 1137305-21-2025 13:09-0400Body mass index (BMI) [Ratio]31.62 kg/f7Pksnnuo Rusher DPM Work Phone: 1(754)[address] [place], [place] 1137305-21-2025 13:09-0400Body mbnyny73.18 kgAnthony Rusher DPM Work Phone: 1(651)[address] [place], [place] 1137304-30-2025 13:47-0400Body mbfolk169.[address]04-30-2025 13:47-0400Body mass index (BMI) [Ratio] 31.62 kg/m[address]04-30-2025 13:47-0400Body qvtfou83.18 [address] [place], [place] 6413104-30-2025 12:55-0400Body behdtv210.1 cmAnthony Rusher DPM Work Phone: [facility] HospitalVxfwzfziem18-13-3853 12:55-0400Body mass index (BMI) [Ratio]31.62 kg/r7Aoczvco Rusher DPM Work Phone: [facility] HospitalVyeddqhzxy16-70-6008 12:55-0400Body ryjcpk35.18 kgAnthony Rusher DPM Work Phone: [facility] HospitalElpnlmyqtf54-93-8833 11:17-0400Body dirpys480.64 cmB[facility]04-28-2025 11:17-0400Body mass index (BMI) [Ratio]32.9 kg/e5MprqjverhBellevue Hospital04-28-2025 11:17-0400Body zqjzro92.53 kgBellevue Hospital04-28-2025 11:17-0400Diastolic blood mgrhdbig68 mm[Hg][facility]04-28-2025 11:17-0400 Heart rate73 /minBellevue Hospital04-28-2025 11:17-0400Systolic blood cqfiwrbx921 mm[Hg][facility]04-21-2025 14:12-0400 Body mass index (BMI) [Ratio]34.11 kg/a4Bvdti Jessica DO Work Phone: [facility] HospitalMiqxrsepct47-65-0168 14:12-0400Body ljkqov81.99 kgCorey Jessica DO Work Phone: [facility] HospitalUkxgrwtgdq96-16-7311 14:12-0400Diastolic blood fithaghz51 mm[Hg]Sanjeev Jessica DO Work Phone: [facility] HospitalVvjanmhprz82-80-5727 14:12-0400Systolic blood sukovgpp797 mm[Hg]Sanjeev Jessica DO Work Phone: [place] [address]Viohatqwpn83-65-3598 09:09-0400Body bfvyau297.1 cmAnthony Rusher DPM Work Phone: [facility] HospitalPjumjyheqk66-81-6671 09:09-0400Body mass index (BMI) [Ratio]31.62 kg/y4RpqalxeGeorgi Carreon DPM Work Phone: [facility] HospitalTlxlulgdxg60-16-3779 09:09-0400Body faqwso85.18 kgGeorgi Carreon DPM Work Phone: [facility] HospitalOwrbuuxyvm03-38-4874 11:00-0500Body ipmhab030.64 cmBellevue Hospital02-14-2025 11:00-0500Body mass index (BMI) [Ratio]31.1 kg/m1YlddjlwrsBellevue Hospital02-14-2025 11:00-0500Body flwqec05.54 kgBellevue Hospital02-14-2025 11:00-0500Diastolic blood pqxghacs59 mm[Hg][facility]02-14-2025 11:00-0500 Heart gnol148 /[facility]02-14-2025 11:00-0500Systolic blood ghitghnj510 mm[Hg][facility]01-09-2025 09:59-0500 Body .64 cmB[facility] Hospital01-09-2025 09:59-0500Body mass index (BMI) [Ratio]31.8 kg/r1ZmashseghBellevue Hospital01-09-2025 09:59-0500Body ylbguq41.35 kgBellevue Hospital01-09-2025 09:59-0500Diastolic blood gwinhtvy05 mm[Hg][facility] 04-11-2024 09:59-0500Heart rate86 /[facility] 04-11-2024 09:59-0500Systolic blood piyitujq246 mm[Hg][facility]11-25-2024 09:54-0500Body mass index (BMI) [Ratio]33.12 kg/j1Iqdcp Jessica DO Work Phone: [facility] HospitalUnkctofcse87-94-3341 09:54-0500Body rpoqxo07.27 kgCorey Jessica DO Work Phone: [phone] [place], [place] [address]Cfkazeeqic31-93-1717 09:54-0500Diastolic blood wwrtwozp44 mm[Hg]Sanjeev Jessica DO Work Phone: 1(832)[facility] [place] [address]-25-2024 09:54-0500Systolic blood mm[Hg]Sanjeev Jessica DO Work Phone: 1(051)[facility] [place], [place] [address]Wsapypbnjv46-28-5485 14:03-0400Body [address]10-17-2024 14:03-0400Body mass index (BMI) [Ratio]31.45 kg/s6Sudio[address]10-17-2024 14:03-0400Body weight 85.[address]10-02-2024 10:48-0400Body mass index (BMI) [Ratio]33.75 kg/c5Govrg Jessica DO Work Phone: 1(085)[address] [place], [place] 5145410-02-2024 10:48-0400Body morfft75.99 kgCorey Jessica DO Work Phone: 1(860)[address] [place] [address]-02-2024 10:48-0400Diastolic blood pbrywxpj68 mm[Hg]Sanjeev Jessica DO Work Phone: 1(783)[address] [place], [place] 5145410-02-2024 10:48-0400Systolic blood mm[Hg]Sanjeev Jessica DO Work Phone: 1(737)[address] [place], [place] 5145409-04-2024 11:46-0400Body mass index (BMI) [Ratio]32.78 kg/k1Zvzgz Jessica DO Work Phone: 1(767)[address] [place], [place] 5145409-04-2024 11:46-0400Body jhyzqu79.36 kgCorey Jessica DO Work Phone: 1(435)[address] [place] [address]-04-2024 11:46-0400Diastolic blood vlijxwez56 mm[Hg]Sanjeev Jessica DO Work Phone: 1(301)[facility] [place] [address]-04-2024 11:46-0400Systolic blood bbzivfzf597 mm[Hg]Sanjeev Jessica DO Work Phone: [facility] HospitalMzoltkuuya75-27-3053 13:37-0400Body mass index (BMI) [Ratio]34.28 kg/f8Etqle Jessica DO Work Phone: [facility] HospitalLwdbpylmct70-27-4651 13:37-0400Body azalfi65.44 kgCorey Jessica DO Work Phone: [facility] HospitalMcuqwalsrh45-93-2125 13:37-0400Diastolic blood jktkwaqf83 mm[Hg]Sanjeevbenji Suggso DO Work Phone: [facility] HospitalKihmhfsgar53-43-9724 13:37-0400Systolic blood mm[Hg]Sanjeevbenji Lopez DO Work Phone: [facility] HospitalQwqiwakpva11-54-8675 10:05-0400Body leaygx283.1 Ramon Metzger MD Work Phone: [facility]03-11-2024 10:05-0400Body mass index (BMI) [Ratio]38.94 kg/m2Rohit Metzger MD Work Phone: [facility]03-11-2024 10:05-0400Body yuojbs728.14 kgRohit Metzger MD Work Phone: [facility]02-13-2024 13:48-0500Body teeceb285.1 Ramon Metzger MD Work Phone: [facility]02-13-2024 13:48-0500Body mass index (BMI) [Ratio]38.94 kg/m2Rohit Metzger MD Work Phone: [facility]02-13-2024 13:48-0500Body .14 Israel Metzger MD Work Phone: [facility]02-05-2024 13:10-0500Body .1 Margarita CHAVIRA Work Phone: [facility]02-05-2024 13:10-0500Body mass index (BMI) [Ratio]38.94 kg/h0RuscrsfgJennie Colon ICT CUSTOMER SUPPORT OFFICER-ENGINE OILER Work Phone: [facility] [employer] 1 Thywzo06-50-2670 13:10-0500Body qbuuaj957.14 kgJennie Colon ICT CUSTOMER SUPPORT OFFICER-ENGINE OILER Work Phone: [facility] [employer] 1 Ktaeqd48-51-8516 13:10-0500Diastolic blood coytdrdz09 mm[Hg]Jennie Colon ICT CUSTOMER SUPPORT OFFICER-ENGINE OILER Work Phone: [facility] [employer] 1 Vywask21-65-6263 13:10-0500Heart rate 99 /minJennie Colon ICT CUSTOMER SUPPORT OFFICER-ENGINE OILER Work Phone: [facility] [employer] 1 Znlikh32-54-2488 13:10-0500Systolic blood pkfxogud151 mm[Hg]Jennie Colon ICT CUSTOMER SUPPORT OFFICER-ENGINE OILER Work Phone: [facility] [employer] 1 Cyzard23-55-1729 11:43-0500Diastolic blood baqsbomv66 mm[Hg]Kal Martinez ICT CUSTOMER SUPPORT OFFICER-ENGINE OILER Work Phone: [facility] OhioMicksGarage [facility] MichiganComment on above:.04-14-2023 11:43-0500Systolic blood fjxctenh315 mm[Hg]Kal Martinez ICT CUSTOMER SUPPORT OFFICER-ENGINE OILER Work Phone: [facility] OhioMicksGarage [facility] MichiganComment on above:.04-14-2023 11:38-0500Body mass index (BMI) [Ratio]39.01 kg/x6Mpsyaclovis Martinez ICT CUSTOMER SUPPORT OFFICER-ENGINE OILER Work Phone: [facility] [employer] 1 Txnlrl77-73-9956 11:38-0500Body szgjrfhkdjo97.6 [degF]Kalclovis Martinez ICT CUSTOMER SUPPORT OFFICER-ENGINE OILER Work Phone: [facility] [employer] 1 Lusqyv41-91-2277 11:38-0500Body cerpju492.32 kgPreetclovis Martinez ICT CUSTOMER SUPPORT OFFICER-ENGINE OILER Work Phone: [facility] OhioMicksGarage Pwzqso99-56-9766 11:38-0500Heart rate 92 /minaKl Martinez ICT CUSTOMER SUPPORT OFFICER-ENGINE OILER Work Phone: [employer]01-12-2024 11:38-0500 Respiratory rate14 /minKal Martinez ICT CUSTOMER SUPPORT OFFICER-ENGINE OILER Work Phone: [facility] HospitalCriticalMetrics01-12-2024 11:38-6087DyJ0% (BldA) [Mass fraction]100 %Kal Martinez ICT CUSTOMER SUPPORT OFFICER-ENGINE OILER Work Phone: [facility] HospitalCriticalMetrics10-02-2023 10:00-0400Body epxogh579.56 cmJohnathon Winter Other [employer] Other 087111-38-6540 10:00-0400Body mass index (BMI) [Ratio] 42.91 kg/r5MemvpeJohnathon Winter Other [employer] Other 10-02-2023 10:00-0400Body ucqttv974.4 kgJohnathon Winter Other [employer] Other 10-02-2023 10:00-0400Diastolic blood mm[Hg] Johnathon Winter Other [employer] Other 10-02-2023 10:00-0400Systolic blood jdjkunzj900 mm[Hg] Johnathon Winter Other [employer] Other 08-30-2023 11:00-0400Body jnzokn779.56 cmJohnathon Winter Other [employer] Other 08-30-2023 11:00-0400Body mass index (BMI) [Ratio] 44.56 kg/c5YlivygJohnathon Winter Other [employer] Other 08-30-2023 11:00-0400Body tofdpa736.75 kgJohnathon Winter Other [employer] Other 08-30-2023 11:00-0400Diastolic blood tzaqphad736 mm[Hg]Johnathon Laura Other [employer] Other 08-30-2023 11:00-8129ItW6% (BldA) [Mass fraction]100 % Johnathon Laura Other [facility] [employer] Other 08-30-2023 11:00-0400Systolic blood mm[Hg] Johnathon Laura Other [employer] Other 07-11-2023 18:45-0400Body qlwkip612.1 cmSshirley Garcia MD Work Phone: [employer]07-11-2023 18:45-0400Body mass index (BMI) [Ratio]43.93 kg/m2Roxie Garcia MD Work Phone: [employer]07-11-2023 18:45-0400Body fzzpgxhonbh67 [degF]Roxie Garcia MD Work Phone: [employer]07-11-2023 18:45-0400Body irnhmi364.75 kgRoxie Garcia MD Work Phone: [employer] [employer]07-11-2023 18:45-0400Diastolic blood afkpjpoj915 mm[Hg]Roxie Garcia MD Work Phone: [employer] [employer]07-11-2023 18:45-0400Heart rate87 /minSshirley Garcia MD Work Phone: [employer] [employer]07-11-2023 18:45-0400 Respiratory rate16 /minSshirley Garcia MD Work Phone: [employer] [employer]07-11-2023 18:45-7274DmR2% (BldA) [Mass fraction]98 %Roxie Garcia MD Work Phone: [facility]07-11-2023 18:45-0400Systolic blood tyhzrgjr914 mm[Hg]Roxie Garcia MD Work Phone: [facility]10-03-2022 13:54-0400Diastolic blood mm[Hg]Teo [facility]JANDR[facility]10-03-2022 13:54-0400Heart rate61 /minTokamini Thomas [facility]10-03-2022 13:54-0556QbP4% (BldA) [Mass fraction]100 %[facility]o [facility]JAN[facility]10-03-2022 13:54-0400Systolic blood wlwivdyw346 mm[Hg]Teo [facility]JANDR[facility]10-03-2022 11:46-0400Body ixebrl609.1 cmTodd Martha [facility]10-03-2022 11:46-0400Body mass index (BMI) [Ratio]44.1 kg/m2 Teo Thomas [facility]10-03-2022 11:46-0400Body qidaxnlqjbv65.7 [degF]Teo Thomas [facility]10-03-2022 11:46-0400Body weight 120.2 kgTokamini Thomas [facility]10-03-2022 11:46-0400Respiratory rate16 /minTodd Martha [facility]05-19-2022 18:03-0400Diastolic blood ltzshzyd30 mm[Hg]Radha Sanders MD Work Phone: [facility] CenterLlaqsf22-39-9339 18:03-0400Heart rate92 /min Radha Sanders MD Work Phone: [facility] CenterKrjyyy54-28-0199 18:03-0400Respiratory rate16 /William Sanders MD Work Phone: [facility] CenterPpkxtn53-65-4718 18:03-9007VjT5% (BldA) [Mass fraction]96 %Radha Sanders MD Work Phone: [facility] CenterXpqjxm00-36-5156 18:03-0400Systolic blood emlopmsf025 mm[Hg]Radha Sanders MD Work Phone: [facility] CenterQtbnbm83-29-4820 16:28-0400Body leglok539.1 cm Radha Sanders MD Work Phone: [address] [place], [place] [address]Yihqjd24-66-9311 16:28-0400Body mass index (BMI) [Ratio]45.76 kg/a2AsjrbiRadha Sanders MD Work Phone: [address] [place], [place] [address]Qfguij40-04-0644 16:28-0400Body dmoxzhrdbcl71.6 [degF]Radha Sanders MD Work Phone: [facility] CenterFmmeij05-74-6098 16:28-0400Body vjrelb488.74 kg Radha Sanders MD Work Phone: [facility] Health Encounters Encounter DateEncounter TypeCare ProviderFacilityStart: 75-05-7479dvippryrkw [facility] Ambulatory PPGStart: 02-07-2025 End: 98-16-3932Ofyeumvum encounterKy Nix MD Work Phone: [facility] NeuroSurgeryStart: 02-03-2025 End: 66-34-6357Holwxhqcm Result EncounterCorey Jessica DO Work Phone: noms External Department UnsolicitedStart: 02-03-2025 End: 43-90-3889Dkyqpsody Result EncounterCorey Jessica DO Work Phone: noms External Department UnsolicitedStart: 01-29-2025 End: 88-00-8143Jgizyu flowsheetAnthony S Rusher DPM Work Phone: [facility] [place] PodiatryStart: 01-29-2025 End: 11-43-4170Ydvbwc flowsheetAnthony S Rusher DPM Work Phone: noIL [facility] PodiatryStart: 01-29-2025 End: 68-14-8309Cbofhn outpatient visit 25 minutesAnthmomo Carreon DPM Work Phone: General acute hospital PodiatryComment on above:S/P foot surgery (Primary Dx); 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; Acquired deformity of right toe; [place] trejo rightStart: 01-29-2025 End: 83-45-4155hxncdyaoraFIZLCRM S RUSHERNot AvailableStart: 01-15-2025 End: 04-54-7136swvctfensdMVTZHG NOEL JEZAKPKit [facility] HospitalStart: 01-06-2025 End: 58-91-9409fvzjgofzjkMepmedkDre Rivera MDFacility:TREY Noel Start: 01-03-2025 End: 54-21-2893Pxustl Kimmy Meyer ICT CUSTOMER SUPPORT OFFICER-ENGINE OILER Work Phone: [facility] HealthStart: 11-05-2024 End: 16-67-3727Gtbehh Kimmy Meyer ICT CUSTOMER SUPPORT OFFICER-ENGINE OILER Work Phone: [facility]al HealthStart: 10-29-2024 End: 58-67-6962Naksec flowsheetWaltermomo Carreon DPM Work Phone: General acute hospital PodiatryStart: 10-29-2024 End: 00-94-2662Yxdhua flowsheetWaltermomo Carreon DPM Work Phone: General acute hospital PodiatryStart: 10-29-2024 End: 86-43-1930Tmrtji follow up visit related to original pxGeorgi Carreon DPM Work Phone: General acute hospital PodiatryComment on above:S/P foot surgery (Primary Dx); Left foot painStart: 10-29-2024 End: 62-66-7120clraelfqmiOSGHUOX S MARIA DEL ROSARIOHERNot AvailableStart: 10-21-2024 End: 56-45-4515rtgzxaamioEFAKYLFransisca FajardoSt. Louis VA Medical Center HospitalStart: 09-17-2024 End: 80-53-3815Kwpcjb flowsheetAnthony S Rusher DPM Work Phone: [facility] PODIATRYStart: 09-17-2024 End: 23-17-2330Inulfm flowsheetAnthony S Rusher DPM Work Phone: [facility] PODIATRYStart: 09-17-2024 End: 51-58-3618Uwtoms follow up visit related to original pxAnthony S Rusher DPM Work Phone: [facility] PODIATRYComment on above:S/P foot surgery (Primary Dx); Left foot painStart: 09-17-2024 End: 55-24-8857mvglkkkatdJXRWACD S RUSHERNot AvailableStart: 09-04-2024 End: 03-56-4303Qgplhc flowsheetAnthony S Rusher DPM Work Phone: [facility] PODIATRYStart: 09-04-2024 End: 64-08-0277Apnuaf flowsheetAnthony S Rusher DPM Work Phone: [facility] PODIATRYStart: 09-04-2024 End: 67-30-6473Bzdpcw follow up visit related to original pxAnthony S Rusher DPM Work Phone: [facility] PODIATRYComment on above:S/P foot surgery (Primary Dx); Left foot painStart: 09-04-2024 End: 75-62-1638naerpmhymkQQCCDCX S RUSHERNot AvailableStart: 09-02-2024 End: 94-41-9196vtdsbmjenzNFKEEW [facility] Southtart: 08-21-2024 End: 21-13-1645Lrjrme flowsheetAnthony S Rusher DPM Work Phone: NOMS PODIATRYStart: 08-21-2024 End: 99-53-3048Yivmpi flowsheetAnthony S Rusher DPM Work Phone: NONC PODIATRYStart: 08-21-2024 End: 38-58-1815Decxfh follow up visit related to original pxAnthony S Rusher DPM Work Phone: noms PODIATRYComment on above:S/P foot surgery (Primary Dx); Left foot pain; Difficulty walking; Instability of left ankle jointStart: 08-21-2024 End: 41-79-8476zczubjgrdcCFROVRE Chelo MIXNot AvailableStart: 08-08-2024 End: 37-95-1895Ehppkzpdrl and management of inpatientWALTERMOMO CARREONNewark Hospitaltart: 08-06-2024 End: 66-04-7536hzkajetcebJDEBEHJohn Douglas French Centertart: 08-05-2024 End: 45-54-9033jaobiktlqwFPAKUPSheltering Arms Hospital Start: 08-05-2024 End: 88-20-3359Zspbjbgbt for preprocedural cardiovascular examinationSelect Medical Specialty Hospital - Cincinnatitart: 07-31-2024 End: 49-90-0430Tqigsvd encounter procedureOhiohealth Mansfield Hospital Pre-Admission Testing [address] [place] [address] - Pre AdmitComment on above:Preop examination (Primary Dx); Hypertension, unspecified typeStart: 07-31-2024 End: 98-53-1614Vhahvagjildqi examination done[address]tart: 07-31-2024 End: 75-92-1405Lthjyg flowsDuane Chelo Carreon DPM Work Phone: noms PODIATRYStart: 07-31-2024 End: 22-53-5151Tdamwp flowsDuane Chelo Carreon DPM Work Phone: noms PODIATRYStart: 32-01-4345Qrxwckjly for other preprocedural examinationMercy Health Allen Hospitaltart: 07-31-2024 End: 75-28-2752Quztim outpatient visit 25 minutesAnthmomo Chelo Velma DPM Work Phone: noms PODIATRYComment on above:Hallux valgus of left foot (Primary Dx); Instability of left foot joint; Tailor's bunion of left foot; Acquired deformity of left toe; 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; Equinus contracture of left ankleStart: 07-31-2024 End: 63-74-6106aqmwtkpuikTOEGLYK S [facility] Hospitaltart: 07-31-2024 End: 64-89-6728ozyefpuffxRBEIH M SOMMERSNewark Hospitaltart: 07-29-2024 End: 74-95-8961nfqauksvuvZlmabmzkfThe [facility] Hospital [facility] Work Phone: Start: 07-29-2024 End: 93-68-4441Kuwnums encounter procedureDavis [facility] Medical Center Physician GroupBlanchard [facility] Work Phone: Start: 07-22-2024 End: 64-49-4141Tmgxkkd encounter procedureCorey Jessica DO Work Phone: [facility] Work Phone: Start: 07-22-2024 End: 58-51-3998Wcwvrrzq preventive med est patient 40-64yrsCorey Jessica DO Work Phone: noms BCP OBComment on above:Well woman exam with routine gynecological exam; Breast cancer screening by mammogramStart: 36-49-4251Ldg-patient / Non-visit [facility] Physician [facility] Professional Co Work Phone: Start: 07-22-2024 End: 63-65-1862Iffwer flowsheetCorey Jessica DO Work Phone: noms BCP OBStart: 07-22-2024 End: 93-99-6219Ninasu flowsheetCorey Jessica DO Work Phone: noms BCP OBStart: 07-22-2024 End: 95-38-1263Iwdvccllg Result EncounterCorey Jessica DO Work Phone: noms External Department UnsolicitedStart: 07-22-2024 End: 11-40-7119ovlqglenupJLGLC FAZIONot AvailableStart: 07-17-2024 End: 97-18-4536igioixpmutRFNSHHT S [facility] Hospitaltart: 07-17-2024 End: 86-98-2158cyfzvryuogJHAGA FRANKProMedica Fremont HospitalStart: 07-16-2024 End: 94-40-0149Birigz flowsAlfredmomo Chelo Carreon DPM Work Phone: noms PODIATRYStart: 07-16-2024 End: 54-57-8191Ojeaes flowsheetGeorgi Chelo Carreon DPM Work Phone: noms PODIATRYStart: 07-16-2024 End: 78-53-9186Ncyfgv outpatient visit 25 minutesAnthmomo Carreon DPM Work Phone: noms PODIATRYComment on above:Hallux valgus of left foot (Primary Dx); Instability of left foot joint; Tailor's bunion of left foot; Acquired deformity of left toe; 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; Equinus contracture of left ankle; Left foot pain; Vitamin D insufficiencyStart: 07-16-2024 End: 45-77-6052hcqjkpwdfdYTEHQZC S RUSHERNot AvailableStart: 27-21-3183Sgj- patient / Non-visitFirfatuma Physician Group-[facility] Professional Co Work Phone: Start: 07-03-2024 End: 32-22-4739ogoellubkfRJWONP [facility] Start: 01-15-9780Kpjrolyjt department patient visitJohnathon Winter Facility:[facility] HospitalStart: 05-29-2024 End: 78-68-0849jmtiggpxacXPKPGOhioHealth Dublin Methodist Hospitaltart: 05-17-2024 End: 06-75-9837eecefdyurvDwqjcxrnlK[facility]tering Health [facility] Work Phone: Start: 05-17-2024 End: 09-77-7897Aihjaeo encounter procedureYohan Physician [facility] Work Phone: Start: 05-08-2024 End: 40-76-9384dkvbjjbmzdQITKJCovenant Health Plainview HospitalStart: 04-15-2024 Non-patient / Non-visitDavis [facility] Center Physician [facility] Work Phone: Start: 54-52-5440Ryfwmrp encounter statusBerger Hospitaltart: 04-11-2024 End: 52-63-1411zkpbfxumixTshnaxvidThe [facility] Hospital [facility] Work Phone: Start: 04-11-2024 End: 21-00-6066Dzchfdicz for general adult medical examination without abnormal findingsBerger Hospitaltart: 04-11-2024 End: 62-78-0255Tztqrzs encounter procedureDavis Regional Medical Center Physician GroupBlanchard Valley [facility] System Work Phone: Start: 04-08-2024 End: 55-57-1580jazhzqczjzCLWNFMaria Parham Healthtart: 04-01-2024 End: 58-59-9322Sqiyzymmi Result EncounterCorey Jessica DO Work Phone: noms External Department UnsolicitedStart: 04-01-2024 End: 40-74-1475Jbaospcdh Result EncounterCorey Jessica DO Work Phone: noms External Department UnsolicitedStart: 04-01-2024 Non-patient / Non-visitDavis [facility] Center Physician [facility] Work Phone: Start: 03-22-2024 End: 82-53-2464Pgpfzghvxfiko Bobby Logan RNDojulianna Arthur [facility] - Medical OncologyStart: 03-13-2024 End: 21-94-3244Sbpkcwmzr Result EncounterCorey Jessica DO Work Phone: noms External Department UnsolicitedStart: 03-13-2024 End: 48-55-0926Dzsutjirn Result EncounterCorey Jessica DO Work Phone: noms External Department UnsolicitedStart: 02-26-2024 End: 80-77-3834Riweqz flowsheetCorey Jessica DO Work Phone: noms BCP OBStart: 02-26-2024 End: 74-18-7673Pwomyk flowsheetCorey Jessica DO Work Phone: noMS BCP OBStart: 02-26-2024 End: 91-16-0527Sormni outpatient visit 15 minutesCorey Jessica DO Work Phone: noms BCP OBComment on above:Breast painStart: 02-26-2024 End: 46-90-2086diwuwxdzjfLAWPB FAZIONot AvailableStart: 37-17-2003Txg-patient / Non-visitFirelands Physician [facility] Work Phone: Start: 01-26-2024 End: 05-28-1919EowadfChong Liang MD Work Phone: [facility] Sign InStart: 01-26-2024 End: 61-83-0008Uyjfkyczqi and management of inpatientKRISTEN SNYDERProMedica Kellogg HospitalStart: 01-25-2024 End: 01-52-4277jjmkdaffycWRLYHJ PALAKODETIProMedica Wyarno HospitalStart: 52-99-5467Mqq-patient / Non-visitFirelands Physician Group-[facility] Uvaldo Work Phone: Start: 01-18-2024 End: 77-07-3309Hmezqrjuy to establishmentMetro Pat Phone Call Provider 3 [facility] [place] Hospitaltart: 01-18-2024 End: 69-03-0119Plvjdhjylg and management of inpatientMARCIA E BRAUNProMedica Kellogg HospitalStart: 25-44-2108Ddl-patient / Non-visitFirelands Physician Group-[facility] Professional [facility] Work Phone: Start: 01-14-2024 End: 74-00-2896Pzxrfhgsy department patient visitMarvin StalterFacility:Jennifer HospitalStart: 01-03-2024 End: 84-32-4186Gqkufv flowsheetCorey Jessica DO Work Phone: noms BCP OBStart: 01-03-2024 End: 64-64-4982Lqksem flowsheetCorey Jessica DO Work Phone: noms BCP OBStart: 01-03-2024 End: 12-56-8631Wsickt follow up visit related to original pxCorey Jessica DO Work Phone: noms BCP OBComment on above:Postop check; Low ferritin levelStart: 12-28-2023 End: 31-21-5194Wqhmegrvd Result EncounterCorey Jessica DO Work Phone: noms External Department UnsolicitedStart: 12-28-2023 End: 82-31-1029Keiiinsbh Result EncounterCorey Jessica DO Work Phone: noms External Department UnsolicitedStart: 12-22-2023 End: 14-62-3494Pebadbgbc Result EncounterCorey Jessica DO Work Phone: noms External Department UnsolicitedStart: 12-22-2023 End: 54-20-3048Oplxacppn Result EncounterCorey Jessica DO Work Phone: noms External Department UnsolicitedStart: 12-08-2023 End: 39-10-6546Opozpdtlz Result EncounterCorey Jessica DO Work Phone: noms External Department UnsolicitedStart: 12-08-2023 End: 65-13-5615Sumogmsba Result EncounterCorey Jessica DO Work Phone: noms External Department UnsolicitedStart: 12-06-2023 End: 41-75-8736etawnurnprMgbng FazioFirelReg[facility] Work Phone: Start: 12-06-2023 End: 80-41-8571Stpmqlpa ReferredDO Sanjeev Jessica Work Phone: [facility] [place] Work Phone: Start: 12-06-2023 End: 72-27-1834Mqiapmw encounter procedureCorey Jessica DO Work Phone: noms [facility] OBComment on above:Pre-op examination; Menorrhagia with regular cycle; Abnormal uterine bleeding (AUB); Pelvic pain; Hormone disorderStart: 12-06-2023 End: 47-47-3248Gwbocznddsyqr examination doneCorey Jessica DO Work Phone: noms HealthcareStart: 51-18-5154Tsc-patient / Non-visitDO Sanjeev Jessica Work Phone: [facility] Professional Co Work Phone: Start: 11-29-2023 End: 01-99-5968Rargdk flowsheetCorey Jessica DO Work Phone: noms [facility] OBStart: 11-29-2023 End: 35-24-6266Mheqky flowsheetCorey Jessica DO Work Phone: noms [facility] OBStart: 11-29-2023 End: 45-94-8736Jajmgwqnc Result EncounterCorey Jessica DO Work Phone: noms External Department UnsolicitedStart: 11-29-2023 End: 81-84-0992Aualbp outpatient visit 15 minutesCorey Jessica DO Work Phone: noms [facility] OBComment on above:Encounter to discuss procedure; Menorrhagia with regular cycle; Decreased libidoStart: 11-15-2023 End: 32-43-4747Afrzgnjzp Result EncounterCorey Jessica DO Work Phone: noms External Department UnsolicitedStart: 11-15-2023 End: 20-89-1667Uhfufdofp Result EncounterCorey Jessica DO Work Phone: noms External Department UnsolicitedStart: 10-25-2023 End: 85-63-4808Pzaoidcpu Result EncounterCorey Jessica DO Work Phone: noms External Department UnsolicitedStart: 10-25-2023 End: 78-70-0961Minogaekw Result EncounterCorey Jessica DO Work Phone: noms External Department UnsolicitedStart: 10-25-2023 Non-patient / Non-visitDO Sanjeev Suggso Work Phone: [facility] GroupDay[facility] Professional Co Work Phone: Start: 08-23-2023 End: 53-02-4549spvtlzdygzOtwcdr E BraunFacility:[facility] Hospitaltart: 57-88-1452Bdvcjv [facility] Spine CareComment on above: Lumbar radiculopathy, chronic (Primary Dx); Herniated lumbar intervertebral discStart: 06-12-2023 End: 32-44-9919Xssnfl outpatient visit 10 Evaristo Smith MD Work Phone: [facility] Sp[facility] SurgeonsComment on above: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) Start: 06-09-2023 End: 21-23-8967Sgjrhqpan Result EncounterCorey Jessica DO Work Phone: noms External Department UnsolicitedStart: 06-09-2023 End: 77-75-8143Oziskbylf Result EncounterCorey Jessica DO Work Phone: noms External Department UnsolicitedStart: 05-24-2023 Orders Tameka Colon ICT CUSTOMER SUPPORT OFFICER-ENGINE OILER Work Phone: [facility] NeuroSurgeryComment on above: Herniated lumbar intervertebral disc (Primary Dx); Lumbar radiculopathy, chronicStart: 05-23-2023 End: 00-35-1139Qjoaztkkx Result EncounterCorey Jessica DO Work Phone: noms External Department UnsolicitedStart: 05-23-2023 End: 22-37-3994Pyixaufog Result EncounterCorey Jessica DO Work Phone: noms External Department UnsolicitedStart: 05-23-2023 End: 76-37-3732kpwrtxpgxzSigbyi Roger ZieberChillicothe Hospital Work Phone: Start: 05-23-2023 End: 73-50-9393Mzrpukyr ReferredMD Tee Leónfernando Work Phone: [facility] HospStart: 05-16-2023 End: 26-87-5667Fjyrpb outpatient new 30 Evaristo Smith MD Work Phone: [facility] Spine SurgeonsComment on above: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); Finger injury, right, initial encounterStart: 65-09-6807Qlltpc Tameka Colon ICT CUSTOMER SUPPORT OFFICER-ENGINE OILER Work Phone: [facility] Physicians NeuroSurgeryComment on above: Herniated lumbar intervertebral disc (Primary Dx)Start: 05-10-2023 End: 59-24-4383rpoisitoulKerdgt Braun Other [place] [employer] Other Start: 05-10-2023 End: 69-31-6238Nfzxilvdu Result EncounterCorey Jessica DO Work Phone: noms External Department UnsolicitedStart: 05-10-2023 End: 43-53-2884Nhurapufk Result EncounterCorey Jessica DO Work Phone: noms External Department UnsolicitedStart: 05-10-2023 Encounter by computer Ranjeet WinterMcCullough-Hyde [facility] Hospital ClinicStart: 05-10-2023 Non-patient / Non-visitMD Tee Peterson Work Phone: [facility] Professional [employer] Work Phone: Start: 05-08-2023 End: 61-39-5040Qxdrlj outpatient new 45 Shayy Colon ICT CUSTOMER SUPPORT OFFICER-ENGINE OILER Work Phone: [facility] Physicians Spine CareComment on above:Lumbar radiculopathy, chronic (Primary Dx); Urinary incontinence without sensory awareness; Sensory deficit, left; Spinal stenosis of lumbar region with neurogenic claudicationStart: 05-04-2023 End: 84-57-9541Fzhkza outpatient visit 10 minutesGrant T Okeefe CONVERTING TECHNICIAN Work Phone: noms FB ORTHOPAEDICSComment on above: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); Pain in finger of right handStart: 04-28-2023 End: 36-60-2409Crdtgozzh Result EncounterCorey Jessica DO Work Phone: noms External Department UnsolicitedStart: 04-28-2023 End: 94-35-2272Uynfysits Result EncounterCorey Jessica DO Work Phone: noms External Department UnsolicitedStart: 04-19-2023 End: 90-14-6053vdwwxdqilwWmxslibj Ball Other [facility] [employer] Other Start: 41-39-5571Clmsmojrm encounterBebere ArchibaldNiru Fiteeza [facility] ClinicStart: 40-61-2540Iibrvq OnlyCarey Rodriguez RMAProMedica Spine CareComment on above:Back pain, unspecified back location, unspecified back pain laterality, unspecified chronicity (Primary Dx)Start: 04-14-2023 End: 09-76-8124Oquupg outpatient visit 15 minutesKal CHAVIRA Work Phone: [facility] OregonComment on above:Acute left-sided low back pain with left-sided sciatica (Primary Dx)Start: 04-12-2023 End: 30-85-0906hlibygrozgFglyhn Braun Other [facility] [employer] Other Start: 94-41-0986Ecgulgzzm encounterMarcia Renato Riki [facility] ClinicStart: 04-11-2023 End: 67-42-5047tzwlqnsndiCnwuur Laura Other [facility] [employer] Other Start: 51-61-4494Oesyqbabh encounterMarcimina Gross Riki [facility] ClinicStart: 04-10-2023 End: 48-83-3416xyrwvhtyuwDqonnh Laura Other [employer] Other Start: 28-31-7564Wowhyepti by computer linkJohnathon Lyn [facility] ClinicStart: 01-30-2023 End: 09-46-0799rommppnirvEfyvpx Winter Other [employer] Other Start: 04-54-0182Kqtrfunbe encounterMarcimina Lyn Medical ClinicStart: 01-02-2023 End: 94-26-4440xwysmhcmbwUqswbd Winter Other [employer] Other Start: 74-38-3889Bewsru outpatient visit 15 minutes Johnathon Lyn [facility] ClinicStart: 12-09-2022 End: 29-15-7113ellogqyfhcFzipgb Winter Other [employer] Other Start: 85-45-7533Ulcsuxkiz encounterMarcimina Lyn Medical ClinicStart: 12-08-2022 End: 48-72-9042wnxasudmnoZttwgm Winter Other [employer] Other Start: 74-61-4283Zwddpqggl encounterMarcimina Lyn Medical ClinicStart: 2022 End: 58-07-3616hkjfadwaooWdwcwe Winter Other [employer] Other Start: 08-82-0877Pcgowt outpatient new 30 minutes Johnathon Lyn [facility] ClinicStart: 10-11-2022 End: 82-69-3408Otstsefgl department patient visitMYMICHIGAN MEDICAL CENTER SAGINAWMina [facility] Foundationtart: 10-11-2022 End: 17-87-3011Kryzmacvk department patient visitSyed Delores Garcia MD Work Phone: [facility] Emergency DepartmentComment on above:Sprain of right ankle, unspecified ligament, initial encounter (Primary Dx)Start: 07-11-2022 End: 86-11-2725cyhzcjbbryJA SANJEEV JESSICA .Facility:L4Frzfr: 04-29-2022 End: 14-94-4912gxygashbuyMA SANJEEV JESSICA .Facility:H5Zvmvz: 02-16-2022 End: 94-35-2269Ugwztyjpk department patient visitHighland District Hospitaltart: 01-03-2022 End: 03-15-6248Nwdzrkvlh department patient visitMARMercy Health Kings Mills Hospitaltart: 01-03-2022 End: 93-14-6317Rgsetbbph department patient visitTodd Mina [facility] EDComment on above:Gastroenteritis (Primary Dx)Start: 08-19-2021 End: 85-44-1498Bqjyabwqh department patient visitRadha Sanders MD Work Phone: [facility] EDComment on above:Herniated lumbar intervertebral disc (Primary Dx) Procedures DateProcedureProcedure DetailPerforming ClinicianStart: 36-93-1999FNS T3 FREE Sanjeev Jessica DO Work Phone: Start: 91-39-5836GHH THYROID STIM HORMONECorey Jessica DO Work Phone: Start: 59-78-3871ILE THYROXINE (T4)Sanjeev Jessica DO Work Phone: Start: 92-74-5738IJJ GLUCOSE BLOODCorey Jessica DO Work Phone: Start: 56-65-9769Vlxwj foot complete minimum 3 views Georgi Carreon DPM Work Phone: Start: 37-07-7261Hysfq foot complete minimum 3 views Georgi Carreon DPM Work Phone: Start: 39-16-2730Flpuh foot complete minimum 3 views Georgi Carreon DPM Work Phone: Start: 69-17-7605Lgkto foot complete minimum 3 views Georgi Carreon DPM Work Phone: Start: 07-22-2024 End: 49-82-3475Xkzzb dip stick/tablet rgnt non-auto w/o micrscpCorey Jessica DO Work Phone: Start: 82-16-4600YJV,APTIMA HPV,AGE GDLNCorey Jessica DO Work Phone: Start: 55-05-3450Ukfqiixkwhp observation [Identifier] in Cervix by Cyto John Meyer ICT CUSTOMER SUPPORT OFFICER-ENGINE OILER Work Phone: Start: 38-86-4594Ywaij foot complete minimum 3 views Georgi Carreon DPM Work Phone: Start: 09-76-6956YON HEMOGLOBIN Z8CRwnpz Jessica DO Work Phone: Start: 63-16-6155RS TOMOSYNTHESIS DIAGNOSTIC BICorey Jessica DO Work Phone: Start: 39-20-4472AW BREAST BI LIMITEDCorey Jessica DO Work Phone: Start: 61-60-1720Fpggvabladsukp vitamin b-12Corey Jessica DO Work Phone: Start: 81-31-8161QSL CBC WITH AUTO DIFFCorey Jessica DO Work Phone: Start: 56-27-9827TFF HEMOGLOBIN O8ZAzzhr Jessica DO Work Phone: Start: 15-51-2365Ljsya test visual color cmprsn methsCorey Jessica DO Work Phone: Start: 43-14-7476IFB DHEA SULFATECorey Jessica DO Work Phone: Start: 02-76-9628WPDFY SEX BINDING HORMONE (SHBG), TESTOSTERONE, FREE AND BIOAVAILABLECorey Jessica DO Work Phone: Start: 33-57-3197WOIKJC TESTOSTERONE FREE/TOT EQUILIB Sanjeev Jessica DO Work Phone: [phone]: 22-58-5993WZ TOMOSYNTHESIS DIAGNOSTIC LTCorey Jessica DO Work Phone: Start: 97-86-4980FG PELVIS W/ TRANSVAGINALCorey Jessica DO Work Phone: [phone]: 05-36-5909ANH CBC WITH AUTO DIFFCorey Jessica DO Work Phone: [phone]: 53-40-4672QZQ THYROID STIM HORMONECorey Jessica DO Work Phone: [phone]: 89-48-2125FNG THYROXINE (T4) FREECorey Jessica DO Work Phone: Start: 60-09-7724EFY APTTCorey Jessica DO Work Phone: [phone]: 98-97-3009VMGXVL PROTHROMBIN TIME INR W/O COUM Sanjeev Jessica DO Work Phone: [phone]: 29-94-1147DNM PREG QUANT HCGCorey Jessica DO Work Phone: [phone]: 33-14-7437ID POST BIOPSY LTCorey Jessica DO Work Phone: Start: 77-99-4842XN STEREOTACTIC LOC LTCorey Jessica DO Work Phone: [phone]: 66-34-5081NK POST BIOPSY LTCorey Jessica DO Work Phone: Start: 97-30-4256ED STEREOTACTIC LOC LTCorey Jessica DO Work Phone: Start: 33-82-1205FF DIAGNOSTIC MAMMO UNILAT LTCorey Jessica DO Work Phone: Start: 24-57-1586AY BREAST LT LIMITEDCorey Jessica DO Work Phone: Start: 58-46-2063RQG C-PEPTIDECorey Jessica DO Work Phone: Start: 75-97-8784GOU DHEA SULFATECorey Jessica DO Work Phone: Start: 74-72-2940VNB ESTRONE(E1)Sanjeev Jessica DO Work Phone: Start: 45-40-2842ESW PROGESTERONECorey Jessica DO Work Phone: Start: 68-44-2321DLK T3 FREECorey Jessica DO Work Phone: Start: 07-25-2702CLF T3 REVERSECorey Jessica DO Work Phone: Start: 01-73-3572YXY THYROID STIM HORMONECorey Jessica DO Work Phone: Start: 12-76-8497ADE THYROXINE (T4)Sanjeev Jessica DO Work Phone: Start: 35-43-9337ALZ THYROXINE (T4) FREECorey Jessica DO Work Phone: Start: 34-05-9359EMH FERRITINCorey Jessica DO Work Phone: Start: 32-41-1810GUDZZQVU, FREE DIALYSIS, LCMSCorey Jessica DO Work Phone: Start: 40-06-9770AAWGC SEX BINDING HORMONE (SHBG), TESTOSTERONE, FREE AND BIOAVAILABLECorey Jessica DO Work Phone: Start: 17-46-8625GNN HEMOGLOBIN I6QRhpwr Jessica DO Work Phone: Start: 70-51-3050WJXAOV TESTOSTERONE FREE/TOT EQUILIB Sanjeev Jessica DO Work Phone: Start: 75-25-5625XNY ESTRONECorey Jessica DO Work Phone: Start: 87-62-3975ZLQ GLUCOSE BLOODCorey Jessica DO Work Phone: Start: 27-13-7321TBX INSULINCorey Jessica DO Work Phone: Start: 85-43-0738HQJ THYROID ANTIBODIESCorey Jessica DO Work Phone: Start: 67-45-2234UIT VITAMIN D 25 OHCorey Jessica DO Work Phone: Start: 74-53-1867GJ SEROTONINCorey Jessica DO Work Phone: Start: 86-19-2362IB TOMOSYNTHESIS SCREENING BICorey Jessica DO Work Phone: Start: 78-54-6801Yyqbo ankle complete minimum 3 views Bailee Lindanings ICT CUSTOMER SUPPORT OFFICER - ENGINE OILER Work Phone: Start: 61-14-6279Oboncxcrkw microscopic onlyMorgan Cristian ICT CUSTOMER SUPPORT OFFICER - CONVERTING TECHNICIAN Work Phone: Start: 26-68-0250Gjvvt dip stick/tablet rgnt auto w/o microscopyMorgan Cristian ICT CUSTOMER SUPPORT OFFICER - CONVERTING TECHNICIAN Work Phone: Start: 07-93-9034Le abdomen & pelvis w/contrast materialMorgan Cristian ICT CUSTOMER SUPPORT OFFICER - CONVERTING TECHNICIAN Work Phone: Start: 92-06-1642Wlpfd of lipaseMorgan Cristian ICT CUSTOMER SUPPORT OFFICER - CONVERTING TECHNICIAN Work Phone: Start: 55-31-2633Vinrr depression screening assessment Serina Rodriguez RMAStart: 61-13-1771Sl lumbar spine w/o contrast Nani Sanders MD Work Phone: Plan of Treatment DateCare ActivityDetailAuthorStart: 72-98-7096Eckbdpcul for malignant neoplasm of cervixPap SmearProMary [facility]ke [facility] Health SystemStart: 96-65-6040Sdsoras Screening Tobacco ScreeningProRegional Medical Centerca St[facility] SystemStart: 91-87-8605Eurtcpt Screening Tobacco ScreeningProRegional Medical Centerca [facility] SystemStart: 82-43-9106Fmajf BMI Screening Adult BMI ScreeningProMercy Health [facility]iff[facility] SystemStart: 90-20-7469Idqfy BMI Screening Adult BMI ScreeningProMercy Health [facility]iff[facility] SystemStart: 10-39-4992Lwdcmkt Screening Tobacco ScreeningProMercy Health [facility] SystemStart: 07-29-2025 End: 17-79-3157Vupddei encounter procedureNO BCP OBStart: 04-18-2025 End: 50-44-7366Srpqunj encounter wcwvjpglo28/16/2026 11:00 AM EST Office Visit [facility] [address] [place] [address] Georgi Carreon, DPM [address] [place] [address] NOMChelo [facility] PodiatryStart: 04-02-2025 End: 43-90-6888Twzavow encounter vdftgecgi33/31/2025 10:30 AM EST Office Visit [facility] [address] [place] [address] Tee Carreon, DPM [address] [place] [address] [facility]iatryStart: 03-10-2025 End: 44-43-9637Eckeblo encounter zgqdoixom65/08/2025 11:00 AM EST Office Visit [facility] [address] [place] [address] Georgi Carreon, DPM [address] [place] [address] [facility]iatryStart: 01-29-2025 End: 52-10-9194Qcejfbh encounter procedureNOMS [place] PodiatryComment on above: ArrivedStart: 47-33-2608Nqpqp BMI ScreeningAdult BMI ScreeningUpper [facility] Medical Center SystemStart: 66-02-9921Uevfuob ScreeningTobacco ScreeningUpper Valley Medical Center System Start: 64-22-9942Mnuva BMI ScreeningAdult BMI ScreeningUpper Valley [facility] Start: 36-03-0644Rrgcmye ScreeningTobacco ScreeningUpper Valley Medical Center SystemStart: 14-08-9811Tbpapjqfp vaccinationInfluenza VaccineProMercy Health Tiffin Hospital SystemStart: 10-29-2024 End: 96-25-9703Kmjxsjj encounter procedureNOMS PODIATRYComment on above: ArrivedStart: 09-18-2024 End: 06-25-1215Jitcjtn encounter kezdbhmpp37/18/2025 1:15 PM EDT Office Visit [facility] [address] [place] [address] Georgi Carreon, [place] [address] [place], [place] [address] [facility] PODIATRYStart: 09-17-2024 End: 68-14-6710Yhjmtmw encounter zxxyaohma88/17/2025 9:45 AM EDT Office Visit [facility] [address] [place] [address] Georgi Carreon DPM [address] [place], [place] [phone] ArrivedNOMS PODIATRYComment on above:ArrivedStart: 09-04-2024 End: 65-36-9496Dmmfwas encounter procedureNOMS PODIATRYComment on above: ArrivedStart: 08-21-2024 End: 57-35-6618Jqtffjo encounter procedureNOMS PODIATRYComment on above: ArrivedStart: 08-08-2024 End: 66-35-3774Ubtiksfnt to same day surgery tpudus8408/08/2024 7:30 AM EDT - 08/08/2024 10:30 AM EDT Surgery [facility] [address] [place] [address] Georgi Carreon, [place] [address] [place], [place] [phone] FUSION LAPIDUS & CPT 27447 [54178 (CPT )][facility] Comment on above:FUSION LAP[place] & CPT 36363 [86155 (CPT )]Start: 08-08-2024 End: 30-69-4451Eqgwa hallux valgus w/sesmdc w/1metar medial cnfFUSION LAPIDUS left foot hallux valgus, deformity of 2nd & 5th metatarsal, acquired deformity of toe, equinus contracture, 5th metatarsal tailors bunion 08/08/2024 7:30 AM [facility]: 08-08-2024 End: 33-01-9143Dxitacbljuaow recessionREPAIR MUSCLE RECESSION GASTROCNEMIUS left foot hallux valgus, deformity of 2nd & 5th metatarsal, acquired deformity of toe, equinus contracture, 5th metatarsal tailors bunion 08/08/2024 7:30 AM EDT [facility]: 08-08-2024 End: 13-12-4829Tivkxa w/wo lngth shrt/corrj metar xcp 1st eaOSTEOTOMY JENNIFER METATARSAL left foot hallux valgus, deformity of 2nd & 5th metatarsal, acquired deformity of toe, equinus contracture, 5th metatarsal tailors bunion 08/08/2024 7:30 AM [facility]: 08-08-2024 End: 45-26-0190Ejmbhc angular dfrm toe soft tiss px onlyEXCISION SOFT TISSUE FOOT left foot hallux valgus, deformity of 2nd & 5th metatarsal, acquired d eformity of toe, equinus contracture, 5th metatarsal tailors bunion 08/08/2024 7:30 AM [facility]Start: 41-13-0805Srlhprbpmg hospital visit by zvqvyurgc38/08/2025 7:30 AM EDT Hospital Encounter [facility] [address] [place] [address] Georgi Carreon, DPM [address] [place], [place] [address] [facility] - SurgeryStart: 07-31-2024 End: 69-63-7173Asexnqj encounter procedureNOMS FH PODIATRYComment on above: ArrivedStart: 07-22-2024 End: 82-32-8499Ivvuwif encounter procedureNOMS BCP OBComment on above:Arrived Start: 07-22-2024 End: 63-19-9587OA Breast - bilateral ScreeningBilateral screening mammogram Imaging Routine Breast cancer screening by mammogram Expected: 07/22/2024 (Approximate), Expires: 09/21/2025NOMS HealthcareComment on above:Expected: 07/22/2024 (Approximate), Expires: 09/21/2025Start: 07-16-2024 End: 61-84-4914Btymdms encounter yzqfbunpv96/15/2025 9:00 AM EDT Office Visit [facility] [address] [place] [address] Georgi Carreon, DPM [address] [place] [address] ArrivedNOMS PODIATRYComment on above:ArrivedStart: 07-50-4881Wweki BMI ScreeningAdult BMI ScreeningProMedica Health SystemStart: 11-73-0796Xeqvyse ScreeningTobacco ScreeningProMedica Health SystemStart: 38-68-2315Amxbm BMI ScreeningAdult BMI ScreeningProRegional Medical Centerca Health SystemStart: 65-00-5326Zgyynel ScreeningTobacco ScreeningProMedica Health SystemStart: 65-33-5406Hvwnb BMI ScreeningAdult BMI ScreeningProMedica Health SystemStart: 17-42-3239Yqtmyzr ScreeningTobacco ScreeningProMedica Health SystemStart: 14-54-9618Bbsdx BMI ScreeningAdult BMI ScreeningProMedica Health SystemStart: 00-40-7153Omeumcv ScreeningTobacco ScreeningProRegional Medical Centerca Health SystemStart: 02-26-2024 End: 06-40-6773BO Breast - bilateral DiagnosticBilateral diagnostic mammogram Imaging Routine Breast pain Expected: 02/26/2024 (Approximate), Expires: 04/27/2025[facility] Work Phone: comment on above:Expected: 02/26/2024 (Approximate), Expires: 04/27/2025Start: 02-26-2024 End: 39-62-2412Apvtgzh encounter ixgbxeiwp49/25/2024 10:00 AM EST Office Visit [facility] OB [address] [place] [phone] Sanjeev Lopez DO [address] [place] [address] ArrivedNOMS BCP OBComment on above:ArrivedStart: 01-25-2024 End: 73-14-4816Zcsrutarz to same day surgery cakmia6301/25/2024 10:00 AM EDT - 01/25/2024 1:59 PM EDT Surgery [facility] [address] [place] [place] [address], [address] [place] [address] PANNICULECTOMYProMedica Elmira Psychiatric CenterComment on above:PANNICULECTOMYStart: 01-25-2024 End: 86-83-4723POYASNFGJNRKJCSDLDKQEQPBIANA Panniculitis affecting regions of neck and back, site unspecified 01/25/2024 10:00 AM [facility] Start: 19-07-2059Hleteewbsa hospital visit by opgavnffj97/24/2024 10:00 AM EDT Hospital Encounter [facility] [address] [place] [address], [address] [place] [address] [facility] HealthStart: 01-03-2024 End: 16-07-4346Tixfoef encounter procedureNOMS BCP OBComment on above:Arrived Start: 12-22-2023 End: 99-82-8958Qmrtmdj encounter azukcgujw67/20/2024 10:00 AM EDT Procedure Visit [facility] EXT DEP Sanjeev Lopez, [address] [place] [address] [facility] EXT DEPStart: 12-06-2023 End: 59-04-1693S-peptideC-peptide Lab Routine Hormone disorder Expected: 12/06/2023 (Approximate), Expires: 12/05/2024NOMS HealthcareComment on above: Expected: 12/06/2023 (Approximate), Expires: 12/05/2024Start: 12-06-2023 End: 64-52-8766Pnqonoxs freeCortisol, free Lab Routine Hormone disorder Expected: 12/06/2023 (Approximate), Expires: 12/05/2024N[facility]S HealthcareComment on above:Expected: 12/06/2023 (Approximate), Expires: 12/05/2024Start: 12-06-2023 End: 65-72-8684Otqxyqk [Mass/volume] in Serum or PlasmaGlucose, random Lab Routine Hormone disorder Expected: 12/06/2023 (Approximate), Expires: 12/05/2024 N[facility] HealthcareComment on above:Expected: 12/06/2023 (Approximate), Expires: 12/05/2024Start: 12-06-2023 End: 05-95-3098Izhpgzg, totalInsulin, total Lab Routine Hormone disorder Expected: 12/06/2023 (Approximate), Expires: 12/05/2024NOMS HealthcareComment on above:Expected: 12/06/2023 (Approximate), Expires: 12/05/2024Start: 12-06-2023 End: 27-14-7570Dmmgaffyr serumSerotonin serum Lab Routine Hormone disorder Expected: 12/06/2023 (Approximate), Expires: 12/05/2024NOMS HealthcareComment on above:Expected: 12/06/2023 (Approximate), Expires: 12/05/2024Start: 12-06-2023 End: 35-93-9350SriivmityttdrTvddqrojbhpzl Lab Routine Hormone disorder Expected: 12/06/2023 (Approximate), Expires: 12/05/2024N[facility] HealthcareComment on above: Expected: 12/06/2023 (Approximate), Expires: 12/05/2024Start: 12-06-2023 End: 94-52-5872Oynurgsaolsus AntibodyThyroglobulin Antibody Lab Routine Hormone disorder Expected: 12/06/2023 (Approximate), Expires: 12/05/2024[facility] Comment on above:Expected: 12/06/2023 (Approximate), Expires: 12/05/2024Start: 12-06-2023 End: 01-24-7789Shjqxpzuonk [Units/volume] in Serum or PlasmaNOMS Healthcare Comment on above:Ordered: 12/06/2023Expected: 12/06/2023 (Approximate), Expires: 12/05/2024Start: 12-06-2023 End: 90-75-9706Alpnjkn encounter unvgpiwur40/04/2024 11:30 AM EDT Procedure Visit [facility] [address] [place] [phone] Sanjeev Lopez, DO [address] [place] [address] [facility] OBStart: 82-93-2487Gzxcqjvly vaccinationInfluenza VaccineSelect Medical Specialty Hospital [facility] SystemStart: 11-29-2023 End: 15-40-9318WSBW-sulfateDHEA-sulfate Lab Routine Decreased libido Expected: 11/29/2023 (Approximate), Expires: 11/28/2024[facility] HealthcareComment on above: Expected: 11/29/2023 (Approximate), Expires: 11/28/2024Start: 11-29-2023 End: 87-22-8025Qpzwmzw encounter zjclaucpw16/28/2024 1:50 PM EDT Office Visit [facility] [address] [place] [phone] Sanjeev Lopez, DO [address] [place] [address] [facility] OBComment on above:ArrivedStart: 07-19-2023 End: 18-50-2303Flalrkl encounter edrfekagm37/17/2024 1:45 PM EDT Office Visit [facility] [address] [facility] [address] [place] [phone] Vishal Martin DO [address] [facility] [address] [place] [address] [facility] RehabilitationStart: 07-17-2023 End: 35-03-8756Vwbtgeg encounter ekagkgumk72/15/2024 10:00 AM EDT Office Visit [facility] [address] [place] [phone] Sanjeev Lopez DO [address] [place] [address] [facility] BCP OBStart: 06-12-2023 End: 55-70-0246Fbidodm encounter qybdjghwe24/11/2024 10:05 AM EDT Office Visit [facility] [address] [facility] [address] [place] [address] Rohit Smith MD [address] [place] [address] [facility] SurgeonsStart: 05-19-2023 End: 61-41-3004Rhjfvve encounter iogielfyo61/16/2024 10:15 AM EST Appointment [facility] Imaging [address] [place] [address] [phone] Dublin [facility] Hospital - MRI ImagingStart: 05-16-2023 End: 59-48-7370Uwbulsr encounter /13/2024 1:45 PM EST Office Visit [facility] [address] [facility] [address] [place] [phone] Rohit Smith MD [address] [place] [address] [facility] Sp[facility] SurgeonsStart: 05-08-2023 End: 44-13-4363HZ Lumbar spine WO contrastMR lumbar spine without contrast Imaging Routine Lumbar radiculopathy, chronic Urinary incontinencewithout sensory awareness Sensory deficit, left Spinal stenosis of lumbar region with neurogenic claudication Expected: 05/08/2023, Expires: 05/08/2024[facility] Work Phone: Comment on above:Expected: 05/08/2023, Expires: 05/08/2024Start: 05-08-2023 End: 19-30-5433Sfzspop encounter /05/2024 1:30 PM EST Office Visit [facility] [address] [place] [address] Jennie Colon, ICT CUSTOMER SUPPORT OFFICER-ENGINE OILER [address] [place] [address] [facility] Start: 04-14-2023 End: 37-81-3708OX Lumbar spine Views W flexion and W extensionX-ray spine lumbar ap, lateral, flexion and extension only Imaging Routine Back pain, unspecified back location, unspecified back pain laterality, unspecified chronicity Expected: 04/14/2023, Expires: 04/14/2024[facility] Work Phone: Comment on above:Expected: 04/14/2023, Expires: 04/14/2024Start: 35-22-7101Flbdabyct vaccinationInfluenza VaccineProMercy Health Tiffin Hospital SystemStart: 89-16-5397Cepfkacewe ScreeningDepression ScreeningProMercy Health Tiffin Hospital SystemStart: 99-32-1682Mrtynedoe vaccinationFlu vaccine (#1)GIANA PEREZ [facility]ITALStart: 57-90-2017Gudqh BMI Follow Up PlanAdult BMI Follow Up Plan [facility] SystemStart: 33-83-3964Cihrvunck vaccinationFlu vaccine (Season Ended)[facility] Centerart: 79-91-8812Mtzxoqflh vaccinationFlu vaccine (#1)[facility] Hospitalart: 26-29-8687Ysziixxe screenDiabetes screenBarney Children'S Medical Center Start: 95-38-5309Gbmlprzxe for malignant neoplasm of cervixBarney Children'S Medical CenterStart: 12-11-2831Xltqttjde for malignant neoplasm of cervixPap smearBarney Children'S Medical CenterStart: 38-97-1400UVuA,Tdap and Td Vaccines (1 - Tdap)DTaP,Tdap and Td Vaccines (1 - Tdap)[facility] SystemStart: 00-29-7891RLzY/Tdap/Td vaccine (1 - Tdap) DTaP/Tdap/Td vaccine (1 - Tdap)[facility] Centerart: 00-00-3396Wfjni BMI Follow Up PlanAdult BMI Follow Up PlanAtrium Health Union Westtart: 33-40-4579Chjnqdgyi C screeningHepatitis C screenBarney Children'S Medical CenterStart: 59-47-1464Oikwgzwuuz Screen Depression [facility]: 96-08-6438Mdfjzolkit ScreeningDepression ScreeningAtrium Health Union Westtart: 43-67-3681CHGJK-19 Vaccine (1)COVID-19 Vaccine (1)[facility] Centerart: 25-20-3959Dxhzwtwco vaccine (1 of 2 - 2-dose childhood series)Varicella vaccine (1 of 2 - 2-dose childhood series)[facility]: 28-93-4928RWZRF-19 Vaccine (#1)COVID-19 Vaccine (#1)[facility]ICEnd[facility] biopsyEndometrial biopsy Procedures Routine Menorrhagia with regular cycle Abnormal uterine bleeding (AUB) Pelvic pain Ordered: 12/06/2023[facility] Work Phone: comment on above:Ordered: 12/06/2023EstradiolEstradiol Lab Routine Hormone disorder Ordered: 12/06/2023[facility] HealthcareComment on above:Ordered: 12/06/2023EstroneEstrone Lab Routine Hormone disorder Ordered: 12/06/2023[facility] HealthcareComment on above:Ordered: 12/06/2023Ferritin [Mass/volume] in Serum or PlasmaFerritin Lab Routine Hormone disorder Ordered: 12/06/2023[facility] HealthcareComment on above:Ordered: 12/06/2023Hemoglobin A1c/Hemoglobin.total in BloodHemoglobin A1c Lab Routine Hormone disorder Ordered: 12/06/2023[facility] HealthcareComment on above:Ordered: 12/06/2023 ProgesteroneProgesterone Lab Routine Hormone disorder Ordered: 12/06/2023[facility] HealthcareComment on above:Ordered: 12/06/2023Sex hormone binding globulinSex hormone binding globulin Lab Routine Decreased libido Ordered: 11/29/2023[facility] HealthcareComment on above:Ordered: 11/29/2023T3, reverseT3, reverse Lab Routine Hormone disorder Ordered: 12/06/2023[facility] HealthcareComment on above:Ordered: 12/06/2023TESTOSTERONE, FREETESTOSTERONE, FREE Lab Routine Decreased libido Ordered: 11/29/2023[facility] Work Phone: comment on above:Ordered: 11/29/2023Testosterone, free, totalTestosterone, free, total Lab Routine Decreased libido Ordered: 11/29/2023[facility] HealthcareComment on above:Ordered: 11/29/2023Testosterone, free, totalTestosterone, free, total Lab Routine Hormone disorder Ordered: 12/06/2023 [facility] HealthcareComment on above:Ordered: 12/06/2023THIN PREP TIS PAP AND HR HPV DNATHIN PREP TIS PAP AND HR HPV DNA Pathology and Cytology Routine Well woman exam with routine gynecological exam Ordered: 07/22/2024[facility] Work Phone: comment on above:Ordered: 07/22/2024Thyroid peroxidase antibodyThyroid peroxidase antibody Lab Routine Hormone disorder Ordered: 12/06/2023[facility] HealthcareComment on above:Ordered: 12/06/2023Thyroxine (T4) free [Mass/volume] in Serum or PlasmaT4, free Lab Routine Hormone disorder Ordered: 12/06/2023[facility] HealthcareComment on above:Ordered: 12/06/2023Triiodothyronine (T3) Free [Mass/volume] in Serum or PlasmaT3, free Lab Routine Hormone disorder Ordered: 12/06/2023[facility] HealthcareComment on above:Ordered: 12/06/2023Vitamin D 1,25 dihydroxyVitamin D 1,25 dihydroxy Lab Routine Hormone disorder Ordered: 12/06/2023[facility] Healthcare[facility] on above:Ordered: 12/06/2023Vitamin D 1,25 dihydroxyVitamin D 1,25 dihydroxy Lab Routine Vitamin D insufficiency Ordered: 07/16/2024[facility] Work Phone: Comment on above:Ordered: 07/16/2024[facility] Payers DatePayer CategoryPayerPolicy [id number] Cross Blue [id number] Flower Hospital Managed Care - [id number]. Unknown1.2.840.230060.1.13.693.2.7.3.306[id number] [id number] 1.2.840.902450.1.13.239.2.7.3.364496. [id number] 2..1.460198.3.579.2.66831-53-8692Mnngpwx6838674 2..1.593054.3.579.[id number] 2..1.267286.3.579.2.98501-96-9567Lvtqqio386290148 2..1.432492.3.579.2.48954-43-1994Micsopi059125487 2..1.491144.3.579.2.37183-00-2409Nwlfvnu96590958 2.0.1.631574.3.579.2.766852-98-1595Mxxamdm08137055 2..1.117949.3.579.2.650458-90-1892Mhngrqw65855139 2..1.895807.3.579.2.327730-73-7490Jwjacua86208135 2..1.025005.3.579.2.830382-76-2482Qpzpdxi75187022 2..1.785135.3.579.2.21139-54-9868Rkcsmxq88538502 2..1.610349.3.579.2.87506-72-9791Aruvbtb04629415 2..1.163027.3.579.2.11495-76-4254Vzpazgx955084762 2..1.483377.3.579.2.30722-85-9033Hrlgtzg589773834 2..1.563846.3.579.2.817528-01-0995Kihlwth782628816 2..1.999076.3.579.2.650682-70-4023Janwjzq647641084 2..1.587668.3.579.2.163776-56-6647Pfvbvby381859770 2..1.412249.3.579.2.154413-84-4406Ytdfzpt064210693 2..1.009842.3.579.2.201751-59-2891Hmmhypb860062032 2..1.485390.3.579.2.886350-69-0168Mmnxhwv170671462 2.16.840.1.087161.3.579.2.768528-95-3411Bjlppfq750296029 2..1.279225.3.579.2.406101-31-8939Szkwakt959226103 2..1.357084.3.579.2.849680-02-2652Dmxkmok357932370 2..1.514412.3.579.2.148619-96-0154Kwwgbgz224265870 2..1.398609.3.579.2.309495-13-3341Zjrmfdy732721262 2..1.568249.3.579.2.128488-51-3260Sytwpks88172321 2..1.516610.3.579.2.699313-83-1768Dcmbhzs09302751 2..1.774204.3.579.2.070130-57-9366Jbgbsgm94638378 2..1.924192.3.579.2.445617-80-0451Eadtsbj03232664 2..1.717859.3.579.2.630813-99-2831Vpkniso63046104 2..1.613952.3.579.2.471634-86-8066Lczgtqk45595195 2..1.635788.3.579.2.949455-64-0967Ayoohsr67111005 2..1.634690.3.579.2.073406-73-2686Ggdwepe4292183 2..1.317801.3.579.2.594875-22-0527Wqilehc0562124 2..1.828099.3.579.2.577098-78-0260Dioajrx8141750 2..0.1.777775.3.579.2.118746-31-9858Dyeueyb2699608 2..840.1.766986.3.579.2.847453-03-0187Qyromby9758916 2..840.1.773948.3.579.2.079033-95-7241Lyioqep1181601 2.0.1.224893.3.579.2.562905-83-1188Jjnvnzv8300102 2.0.1.884600.3.579.2.014145-62-3155Uilcqwh967715056 2.16.840.1.903957.3.579.2.300555-55-6152YkhgbnzE6N277D34781Fgkjgjg71139212 2.0.1.370084.3.579.2.531 Social History DateTypeDetailFacilityStart: 06-15-2015 End: 69-44-9082Xlwhlgx smoking status NHISNever smoked tobaccoWright-Patterson Medical Center Figure 1Start: 06-15-2015 End: 30-48-3947Ikgualk use and exposureSmokeless tobacco non-userWright-Patterson Medical CenterCelleration Phone: start: 08-19-2021 End: 55-19-4793Usoqlsx intakeCurrent non-drinker of alcohol (finding)[employer] Phone: start: 05-14-2020 End: 18-16-4072Lokzbkn intakeWright-Patterson Medical CenterCelleration Phone: start: 97-36-3906Eesgknu SDOH Alcohol Commentrarely [employer] Phone: start: 90-70-3887Owh Assigned At BirthNot on fileWright-Patterson Medical CenterCelleration Phone: start: 08-09-2021 End: 33-59-8172Mnknpctt to SARS-CoV-2 (event)Not sureSandy Health Work Phone: History of tobacco usePassive Daphnie WHITAKER [employer] Work Phone: start: 05-14-2020 End: 82-02-9422Jul Assigned At BirthClinton Numedeon Other Start: 05-04-2023 End: 58-06-4389Hweogjx intakeEx-drinker (finding)[facility] HealthcareStart: 85-40-4738Pttzxfs CommentAlcohol: 1 or 2 drinks on typical day/monthly or less. Caffeine: 1-2 cups/day teaENCOMPASS HEALTH HealthcareStart: 58-11-5437Odp Assigned At FemaleENCOMPASS HEALTH HealthcareStart: 61-11-2131Izpmbu identityIdentifies as female gender (finding)[facility] HospitalStart: 04-73-2282Biikwz orientationHeterosexual (finding)[facility] the [employer], gas, oil, or water [employer] threatened to shut off services in your home in past 12[facility] SystemStart: 81-28-3906Jnbdekevum depression screening pgprkwrqbj6JgkKcmuvq Health System Start: 11-06-2014 End: 12-78-5941GolAksfyu (finding)[facility] SystemTobacco smoking status NHISUnknown if ever smokedSt. Vincent Hospital Work Phone: NEGATED: Highlighted rowBellevue Hospital Medical Equipment Procedure CodeEquipment CodeEquipment Original TextEquipment IdentifierDates [id number], [id number], [id number]: 09-14-2023 End: 42-42-9439Oayoaf 70d10pk Str G[address] Jaws Ntnl Bn Rpl [id number] - Sna - [id number]: 81-45-5581Aoklyr 91d78wc Str Grt Wht Jaws Ntnl Bn Rpl [id number] - Sna - [id number]: 16-39-0765Uaksg Bn 13mm [address] Ns - Sna - [id number]: 01-77-5914Ersfh Bn 10mm 2mm Hd Mn-Mnstr St Ns - [id number]: 08-08-2024 Goals DatePatient GoalDesired Activity/StatePersonal health goalComment on above: Evaluation of progress towards goal: johns removal; pain management Clinical Notes 08-19-2021 to 02-07-2025 Note Date & LxifGcgsDapxuamb93-71-4255 Miscellaneous Notes* Telephone Encounter - Vicki Biswas - 02/07/2025 11:35 AM EST Received fax referral. Called & spoke to patient, she does not want to see Dr. Nix. In[facility] her that [facility] no see each other's patients. Referral scanned to chart. documented in this encounterJ[facility] Telephone encounter Note* Telephone Encounter - Vicki Biswas - 02/07/2025 11:35 AM EST Received fax referral. Called & spoke to patient, she does not want to see Dr. Nix. Informed her that she would have to see a patient outside of [facility] as our doctors do no see each other's patients. Referral scanned to chart. [facility]10[facility] History of Present illness Narrative* Georgi Carreon DPM - 01/29/2025 9:00 AM EDT Images from [...] the morning., Disp: , Rfl: glucose blood (WinLocalTouch Verio) test strip, Use as instructed, Disp: 100 each, Rfl: 3 Lancets (OneTouch Delica Plus Trblxm46Y) [facility], , Disp: , Rfl: losartan (Cozaar) 100 [...] and instructions. TodayI spent 30 minutes in [id number] discussion with the patient as well as [...] understanding. Georgi Carreon DPM documented in this encounterSoutheast Missouri [id number] History of Present illness Narrative* Georgi Carreon [...] the morning., Disp: , Rfl: glucose blood ([employer] Verio) test strip, Use as instructed, Disp: 100 each, Rfl: 3 Lancets (WinLocalTouch Delica Plus [id number]) [facility] [place], , Disp: , Rfl: losartan (Cozaar) 100 MG tablet, Take 100 mg by mouth Daily, Disp: , Rfl: metoprolol succinate XL (Toprol-XL) 50 MG 24 hr tablet, Take 50 mg by mouth 1 (one) time each day at the same time, Disp: , Rfl: MONOJECT 3CC SYRINGE 3 ML [facility] [place], , Disp: , Rfl: Mounjaro 12.5 MG/0.5ML solution auto-injector, inject 0.5 milliliters UNDER THE SKIN ONCE WEEKLY, Disp: 2 mL, Rfl: 3 nystatin (Mycostatin) 409334 UNIT/GM powder, Apply topically 3 (three) times [...] Comments: [place] [facility] [place] by [place] . HENT: Head: Normocephalic [...] understanding. Georgi Carreon DPM documented in this encounterSoutheast [place] [id number] History of Present illness Narrative* Georgi Carreon [...] Morbid obesity with BMI of 45.0-49.9, adult ([facility]) PCOS (polycystic ovarian syndrome) Pre-diabetes Rectal bleeding Off and on since 2018 Weight gain Medications Current Outpatient Medications: Alcohol Swabs (B-D SINGLE USE SWABS REGULAR) pads, , Disp: , Rfl: amLODIPine (Norvasc) 10 MG tablet, Take 10 mg by mouth in the morning., Disp: , Rfl: Blood Glucose Monitoring Suppl ([employer] Glucometer) w/Device kit, 1 kit Daily Use [...] each, Rfl: 3 Lancets (OneTouch Delica Plus [id number]) [facility], , Disp: , Rfl: losartan (Cozaar) 100 MG tablet, Take 100 mg by mouth Daily, Disp: , Rfl: metoprolol succinate XL (Toprol-XL) 50 MG 24 hr tablet, Take 50 mg by mouth 1 (one) time each day at the same time, Disp: , Rfl: MONOJECT 3CC SYRINGE 3 ML [facility], , Disp: , Rfl: Mounjaro 12.5 MG/0.5ML [...] boot. Referral sent to PT link in [place]. I will follow up with her in [...] understanding. Georgi Carreon DPM documented in this encounterSoutheast Missouri HospitalGurzmpxnll73-16-1041 History of Present illness Narrative* Georgi Carreon DPM - 09/04/2024 8:30 AM EDT Images from [...] Disp: , Rfl: Blood Glucose Monitoring Suppl (RedPath Integrated Pathology Glucometer) w/Device kit, 1 kit Daily Use [...] the morning., Disp: , Rfl: glucose blood (WinLocalTouch Verio) test strip, Use as instructed, Disp: 100 each, Rfl: 3 Lancets (WinLocalTouch Delica Plus [id number]) [facility], , Disp: , Rfl: losartan (Cozaar) 100 MG tablet, Take 100 mg by mouth Daily, Disp: , Rfl: metoprolol succinate XL (Toprol-XL) 50 MG 24 hr tablet, Take 50 mg by mouth 1 (one) time each day at the same time, Disp: , Rfl: MONOJECT 3CC SYRINGE 3 ML [facility], , Disp: , Rfl: Mounjaro 12.5 MG/0.5ML [...] understanding. Georgi Carreon DPM documented in this encounterSoutheast Missouri HospitalYuopffxcoz25-51-1843 History of Present illness Narrative* Rosy Nelson [...] Disp: , Rfl: Blood Glucose Monitoring Suppl (RedPath Integrated Pathology Glucometer) w/Device kit, 1 kit Daily Use [...] the morning., Disp: , Rfl: glucose blood (WinLocalTouch Verio) test strip, Use as instructed, Disp: 100 each, Rfl: 3 Lancets (WinLocalTouch Delica Plus Dkkjlb20X) misc, , Disp: , Rfl: losartan (Cozaar) [...] understanding. Georgi Carreon DPM documented in this encounterSoutheast Missouri HospitalOykhtkvirx82-02-0157 NoteUT Cardiology - [facility] Subjective Karuna Dumont is a 43 y.o. year old female being seen for follow up medication changes and renal artery duplex. Echo is scheduled for tomorrow at [facility] in [place]. She needs cleared for foot surgery scheduled for at [facility] also. BP has been much better she [...] Current Outpatient Medications: amLODIPin (more content not included)...[facility] 07-31-2024 Instructions* Patient Instructions* Mary Ellen Castellon RN - 07/31/2024 2:15 PM EDT Preoperative Education Checklist- General Surgery date: 08/08/24 Surgery time: 0730 a.m. Arrival time: 0610 a.m. 1. Bring a photo ID and your insurance card with you the day of surgery. You will check in at the main lobby of the [facility]- registration desk is straight ahead as soon as you walk in. Tell them you are here for surgery. 2. If you have a Living Will/Durable Power of Project Management for Health Care that is not on [...] after you have bathed. 5. NO nail paraguayan/acrylic on at least one finger. If you are having a hand, wrist or foot surgery then all nail paraguayan and artificial/acrylic nails must be removed from [...] please call the Preadmission Testing office at [phone], Mon.-Fri. 7 a.m.-3 p.m. Leave a voicemail [...] appointment with your doctor. documented in this encounterSelect Medical Specialty Hospital - Southeast OhioMicksGarage [id number] Miscellaneous Notes* Perioperative Nursing Note - Mary Ellen Castellon RN - 07/31/2024 2:15 PM EDT Preoperative Education Checklist- General Surgery date: 08/08/24 Surgery time: 0730 a.m. Arrival time: 0610 a.m. 1. Bring a photo ID and your insurance card with you the day of surgery. You will check in at the main lobby of the [facility]- registration desk is straight ahead as soon as you walk in. Tell them you are here for surgery. 2. If you have a Living Will/Durable Power of Project Management for Health Care that is not on [...] after you have bathed. 5. NO nail paraguayan/acrylic on at least one finger. If you are having a hand, wrist or foot surgery then all nail paraguayan and artificial/acrylic nails must be removed from [...] please call the Preadmission Testing office at [phone], Mon.-Fri. 7 a.m.-3 p.m. Leave a voicemail [...] has her ECHO completed. documented in this encounterJ.W. Ruby [facility] Hospital04-30-2025 Nurse Note* Perioperative Nursing Note - Mary Ellen Castellon RN - 07/31/2024 2:15 PM EDT Preoperative Education Checklist- General Surgery date: 08/08/24 Surgery time: 0730 a.m. Arrival time: 0610 a.m. 1. Bring a photo ID and your insurance card with you the day of surgery. You will check in at the main lobby of the [facility] [place]- registration desk is straight ahead as soon as you walk in. Tell them you are here for surgery. 2. If you have a Living Will/Durable Power of Project Management for Health Care that is not on [...] after you have bathed. 5. NO nail paraguayan/acrylic on at least one finger. If you are having a hand, wrist or foot surgery then all nail paraguayan and artificial/acrylic nails must be removed from [...] please call the Preadmission Testing office at [phone], Mon.-Fri. 7 a.m.-3 p.m. Leave a voicemail [...] to the follow-up appointment with your doctor. [facility] [id number] Nurse Note* Perioperative Nursing Note - Mary Ellen Castellon RN - 07/31/2024 2:15 PM EDT Hibiclens and surgical instructions reviewed. Patient verbalized understanding. [facility]04-30-[facility] Nurse Note* Perioperative Nursing Note - Mary Ellen Castellon RN - 07/31/2024 2:15 PM EDT Lisette at Dr Carreon's office notified of need for cardiac clearance once patient has her ECHO completed. [facility]04-30-2025 History of Present illness Narrative* Georgi Carreon [...] each, Rfl: 3 Lancets (OneTouch Delica Plus Qfaapf84G) misc, , Disp: , Rfl: losartan (Cozaar) [...] period for the planned procedures which will [id number] TMT arthrodesis with modified Lazaro bunionectomy, shortening [...] understanding. Georgi Carreon DPM documented in this encounterSoutheast Missouri [id number] History of Present illness Narrative* Natalia Choi LPN - 07/22/2024 3:00 PM EDT Reason for Appointment: Patient ID: Cindy Dumont is a 43 y.o. female who presents for [facility] Women Visit Patient presents today for Annual [...] Use as instructed Lancets (OneTouch Delica Plus Amiijt72B) misc losartan (COZAAR) 100 mg, Daily metoprolol [...] nursing note reviewed. Exam conducted with a brush hand present. Vitals: Estimated body mass index is 34.11 kg/m as calculated from the following: Height as of 25: 5' 5 . Weight as of this [...] of: Sanjeev Lopez DO documented in this encounterNOMS [id number] History of Present illness Narrative* Georgi Carreon, DPM - 07/16/2024 9:00 AM EDT Images from [...] each, Rfl: 3 Lancets (OneTouch Delica Plus Rgzknv15Q) misc, , Disp: , Rfl: MONOJECT 3CC [...] understanding. Georgi Carreon DPM documented in this encounterSoutheast Missouri HospitalKzcbckagje54-88-8[address] NoteUT Card[address] - [facility] Subjective Karuna Dumont is a [...] Swelling and Unknown Medications Current Outpatient Medications: jwzdjiuxnw-hbdbhwpxxeeqo-nxbv (Fioricet) 50-300-40 mg capsule, Take 50 capsules [...] (one) time per week., Disp: , Rfl: wdisweyiarlt-lni-eapk-FA-vit K 18 mg iron-400 mcg-25 mcg tablet, Take by mouth., Disp: , Rfl: ondansetron ODT (Zofran-ODT) 4 mg disintegrating tablet, Take 4 mg by mouth every 8 (eight) (more content not included)...[facility]03-28-2025 NoteEducation Materials Neurology Migraine Headache A migraine [...] these instructions at home: Medicines ? Take laqx-qjo-pwoaexw and prescription medicines only as told by your provider. ? Ask your provider if the medicine prescribed to you: ? Requires you to avoid driving or using machinery. ? Can cause constipation. You may need to take these actions to prevent or treat constipation: ? Drink enough fluid to keep your pee (urine) pale yellow. ? Take qsbf-alw-ewqvpla or prescription medicines. ? Eat foods that [...] for Headache and M (more content not included)...[facility] 05-17-2024 Evaluation note* Diagnosis Onset Date Resolution Status Admit Date Adult ADHD acuteFebruary 2024 10:57amBenign essential HTNacuteFebruary 2024 10:57am [facility] Work Phone: 1(858) 719-301201-09-2025 Evaluation note* Diagnosis Onset Date Resolution Status Admit Date Adult ADHD acuteJanuary 2024 9:46amBenign essential HTNacuteJanuary 2024 9:46am Wellness examinationacuteJanuary 2024 9:46am [facility] Work Phone: 1(537) 874-109312-20-2024 History of Present illness Narrative* Caitlyn Logan RN - 03/22/2024 1:59 PM EST [facility] received referral for BRCA testing. Referral faxed to genetics. documented in this encounterJ.W. Ruby Memorial Hospital12-11-2024 Miscellaneous Notes* Result Encounter Note - Tatum Atkinson LPN - 03/13/2024 3:00 PM EST Pt notified and was told we could do the BRCA referral documented in this encounterSoutheast Missouri HospitalUxupdbjdbx90-23-6647 Progress note* Result Encounter Note - Tatum Atkinson LPN - 03/13/2024 3:00 PM EST Pt notified and was told we could do the BRCA referral [facility] Work Phone: 1(105) 792-975511-25-2024 History of Present illness Narrative* Monique Cantrell [...] of 4times daily. Lancets (OneTouch Delica Plus Uusmug98Q) misc MONOJECT 3CC SYRINGE 3 ML misc [...] 45.0-49.9, adult (CMS/FORMERLY [facility]) PCOS (polycystic ovarian syndrome) Pre-diabetes Rectal bleeding Off and on since 2018 Weight gain Social History Tobacco Use Smoking status: Never Smokeless tobacco: Never Substance Use Topics Alcohol use: Not Currently Comment: Alcohol: 1 or 2 drinks on typical day/monthly or less. Caffeine: 1-2 cups/day tea Drug use: Never FAMILY HISTORY Family History Problem Relation Name Age of Onset Hypertension Maternal Grandfather [place] Heart disease Maternal Grandfather [place] Stroke Maternal Grandfather [place] Cancer Maternal Grandfather [place] Drug abuse Maternal Grandfather [place] Drug abuse Father Tyrese Diabetes Paternal Grandfather [...] nursing note reviewed. Exam conducted with a brush hand present. Vitals: Estimated body mass index is [...] of: Sanjeev Lopez DO documented in this encounterSoutheast Missouri HospitalDziriilvqv30-66-2796 History of Present illness Narrative* Alfonso Liang MD - 01/26/2024 5:57 PM EDT 01/26/2024 6:12 PM Opened this encounter to order Buffalo but talked to patient's pharmacy that it was an insurance issue and they are going to fulfill the prescription now. No new orders were placed. Dr. Price made aware. ALFONSO LIANG MD PGY4 Gen Surg Residnet documented in this encounterJ.W. Ruby Memorial Hospital10-13-2024 NoteEducation Materials Neurology Migraine Headache [...] these instructions at home: Medicines ? Take ltcr-hnf-wvcnczj and prescription medicines only as told by [...] you. Where to find more information ? [facility] for Headache and Migraine Patients (CHAMP): headachemigraine.org ? [place] Migraine Foundation: americanmigrainefoundation.org ? National Headache Foundation: [...] your health care p (more content not included)...[facility] CenterKfdwedvz72-50-0658 History of Present illness Narrative* Tatum Atkinson [...] TAKE 1 TABLET BY MOUTH PREOP Lancets (WinLocalTouch Delica Plus Jnmyqm77K) misc MONOJECT 3CC SYRINGE 3 ML misc [...] Name Age of Onset Hypertension Maternal Grandfather [place] Heart disease Maternal Grandfather [place] Stroke Maternal Grandfather [place] Cancer Maternal Grandfather [place] Drug abuse Maternal Grandfather [place] Drug abuse Father Tyrese Diabetes Paternal Grandfather [...] nursing note reviewed. Exam conducted with a brush hand present. Vitals: Estimated body mass index is [...] of: Sanjeev Lopez DO documented in this encounterSoutheast Missouri HospitalKujnppcdtv11-61-6362 History of Present illness Narrative* Tracie Octavio - 12/06/2023 11:30 AM EDT Reason for Appointment: Patient ID: Cindy Dumont is a 43 y.o. female who presents for Endometrial Biopsy and Pre-op Visit Patient presents today for Pre Op/Endometrial Biopsy appointment. Patient is scheduled to undergo Endometrial Ablation with Mariel on 12/22/[address] [facility]. MEDICATIONS Current Outpatient Medications Medication Instructions Alcohol Swabs (Alcohol Prep Pad) 70 % pads 1 Pad, Topical, 2 times daily, Use twice daily to check FSBS. Blood Glucose Monitoring Suppl (D-SoloLearn Glucometer) w/Device kit 1 kit, Does not [...] Name Age of Onset Hypertension Maternal Grandfather [place] Heart disease Maternal Grandfather [place] Stroke Maternal Grandfather [place] Cancer Maternal Grandfather [place] Drug abuse Maternal Grandfather [place] Drug abuse Father Tyrese Diabetes Paternal Grandfather [...] nursing note reviewed. Exam conducted with a brush hand present. Vitals: Estimated body mass index is [...] reviewed, and patient is to proceed to [facility] OR. Follow Up: Patient is to follow up between 1-2 weeks post op to assess proper healing and recovery from procedure. Documented by Monique Cantrell LPN on behalf of: Sanjeev Lopez DO documented in this encounterSoutheast Missouri [id number] History of Present illness Narrative* Monique Cantrell [...] 45.0-49.9, adult (CMS/FORMERLY [facility]) PCOS (polycystic ovarian syndrome) Pre-diabetes Rectal bleeding Off and on since 2018 Weight gain Social History Tobacco Use Smoking status: Never Smokeless tobacco: Never Substance Use Topics Alcohol use: Not Currently Comment: Alcohol: 1 or 2 drinks on typical day/monthly or less. Caffeine: 1-2 cups/day tea Drug use: Never FAMILY HISTORY Family History Problem Relation Name Age of Onset Hypertension Maternal Grandfather [place] Heart disease Maternal Grandfather [place] Stroke Maternal Grandfather [place] Cancer Maternal Grandfather [place] Drug abuse Maternal Grandfather [place] Drug abuse Father Tyrese Diabetes Paternal Grandfather [...] nursing note reviewed. Exam conducted with a brush hand present. Vitals: Estimated body mass index is [...] of: Sanjeev Lopez DO documented in this encounterSoutheast Missouri HospitalCrjpdjgdsr86-32-0423 NotePatient Education Materials Follows: Hypertension, Adult High [...] of wine (148 mL (more content not included)...[facility] [id number] History of Present illness Narrative* Rohit Metzger [...] take another few months to subside. Recommended dbta-ugz-babvjey pain relievers as needed. She is content [...] has any severe symptoms. documented in this encounterJ.W. Ruby Memorial Hospital02-13-2024 History of Present illness Narrative* Rohit Metzger MD - 05/16/2023 1:45 PM EST [facility] Chief Complaint: [...] External notes reviewed: I reviewed notes from [facility] orthopaedics. Review of test/study reports: I reviewed an x-ray obtained of the right ring finger. There were no acute osseous abnormality suchas fracture dislocation. My personal interpretation of tests: I personally viewed and interpreted X-rays from [facility] as above. Xrays done in office today: None. Assessment: 1. Mallet deformity of right ring finger - [facility] [place], [place] 2. Finger [facility], right[facility] [place] [place] Plan: I discussed treatment options with [...] progress with her flexion. documented in this encounterJ.W. Ruby Memorial Hospital02-07-2024 Evaluation note* Encounter Date Diagnosis Assessment Notes Treatment Notes Treatment Clinical Notes May, Adult ADHD (attentio n deficit hyperactivity disorder) (ICD-10 - F90.9) [employer] Other 02-05-2024 History of Present illness Narrative* Jennie Colon APRN-RASHAUN - 05/08/2023 1:30 PM EST Images from the original note were not included. [facility] [address] [place] [phone] * CHART NOTE ? 05/08/2023 Patient: Karuna Dumont 1980 [id number] Provider: Jennie Colon CNP CHIEF COMPLAINT Low [...] Current and prior treatments: -Physical therapy/HEP: denies -career and guidance counselor: denies -Pain management: denies -Prior neurosurgical surgeries: [...] 12/08/2016 Performed by Dannie Patel MD at [facility] OR SECTION 2018 CHOLECYSTECTOMY BEHAVORIAL SCREENING [...] Right achilles: 2+ Left achilles: 2+ Right industrial commercial groundskeeper: 2+ Left industrial commercial groundskeeper: 2+ Right Andujar: absent Left Andujar: absent [...] record of the patient encounter. Inadvertent computerized cheese wrapper errors related to syntax, spelling, homophones, and/or inaudibility may be present. Thank you for your referral. CAIT Perla CNP 05/08/23 1440 documented in this encounterSelect Medical Specialty Hospital - Southeast OhioContapps [facility]claren Northern [id number] History of Present illness Narrative* Everett Okeefe [...] finger for about 2 weeks. Went to [facility] due to having numbness in finger and unable to straighten it. Had XR at . On 03/13, pt went to [facility] and had another XR. Unable to get into hand specialist at [facility] until May 16. Continues to [...] crooked. PT is RT handed Prior [place]: [facility] 03/09/23, XR, Splint, [facility], XR 03/13/23, Ice, Heat, IBU, [place] ALLERGIES: No Known Allergies HOME MEDICATIONS: Current Outpatient Medications Medication Instructions amphetamine-dextroamphetamine (Adderall) 20 MG tablet 1 TABLET ORALLY MID DAY 30 DAYS cyclobenzaprine (Flexeril) 10 MG tablet PLEASE SEE ATTACHED FOR DETAILED DIRECTIONS fluconazole (DIFLUCAN) 100 mg, Oral, Daily nystatin (Mycostatin) [id number] UNIT/GM powder APPLY TO AFFECTED AREA TOPICALLY [...] normal Pronation: normal Supination: normal Muscle Strength Bow Making Machine Operator: 3/5 Other Erythema: absent Pulse: present Comments: [...] urgent evaluation. Everett CHAVIRA documented in this encounterSoutheast Missouri HospitalOuofvcxdgf31-93-1555 Evaluation note* Encounter Date Diagnosis Assessment Notes Treatment Notes Treatment Clinical Notes Apr, Adult ADHD (attentio n deficit hyperactivity disorder) (ICD-10 - F90.9) [employer] Other 01-12-2024 History of Present illness Narrative* [...] not had any complication. She is using jltd-ien-ambyvbk pain patches. She denies any recent change [...] 12/08/2016 Performed by Dannie Patel MD at [facility] OR SECTION 2018 CHOLECYSTECTOMY Social History [...] per her request. I have evaluated her [facility] reporting risk OARRS report overdose risk score [...] follow-up. OAARS report reviewed via OARRS/MAPS in [employer] Discussed with the patient/caregiversafe and effective use [...] you individually. If you have been recommended bkxi-nqr-lmzjrqn medications please use those medications as indicated [...] or approved for treating a specific patient. [employer] and its affiliatesdisclaim any warranty or liability relating to this information or the use thereof. The use of thisinformation is governed by the Terms of Use, available at https://www.[employer]oleen.[employer]/en/know/buajzwba-nhztxwkljvkqd-rrqus Copyright Copyright 2022 [employer] and its affiliates and/or licensors. All rights reserved. OVER THE COUNTER PAIN CONTROL GUIDELINES To help control your pain a combination of ocwq-vdb-yontvnt (OTC) pain medications can be used successfully [...] ulcers Do NOT take Tylenol along with Buffalo or Percocet (they already have Tylenol) Do [...] CAIT Song 04/14/23 1207 documented in this encounterMayo Memorial HospitalEcoSwarm [id number] Instructions* Patient Instructions* CAIT Song - 04/14/2023 [...] you individually. If you have been recommended mpgr-tga-kqgmudr medications please use those medications as indicated [...] or approved for treating a specific patient. [employer] and its affiliatesdisclaim any warranty or liability relating to this information or the use thereof. The use of thisinformation is governed by the Terms of Use, available at https://www.Evoleen.com/en/know/dsiobwrb-agsqvjofulcba-tmyfz Copyright Copyright 2022 [employer] and its affiliates and/or licensors. All rights reserved. OVER THE COUNTER PAIN CONTROL GUIDELINES To help control your pain a combination of nyid-ymb-uovtvoz (OTC) pain medications can be used successfully [...] ulcers Do NOT take Tylenol along with Buffalo or Percocet (they already have Tylenol) Do NOT drink Alcohol while taking Tylenol If you have any questions please talk to your doctor or a pharmacist documented in this [facility]01-10-2024 Evaluation note* Encounter Date Diagnosis Assessment Notes Treatment Notes Treatment Clinical Notes Apr, Adult ADHD (attentio n deficit hyperactivity disorder) (ICD-10 - F90.9) [employer] Other 01-09-2024 Evaluation note* Encounter Date Diagnosis Assessment Notes Treatment Notes Treatment Clinical Notes Apr, Adult ADHD (attentio n deficit hyperactivity disorder) (ICD-10 - F90.9) [employer] Other 01-08-2024 Evaluation note* Encounter Date Diagnosis Assessment Notes Treatment Notes Treatment Clinical Notes Apr, Adult ADHD (attentio n deficit hyperactivity disorder) (ICD-10 - F90.9) [employer] Other 10-30-2023 Evaluation note* Encounter Date Diagnosis Assessment Notes Treatment Notes Treatment Clinical Notes Jan, Adult ADHD (attentio n deficit hyperactivity disorder) (ICD-10 - F90.9) [employer] Other 10-02-2023 Evaluation note* Encounter Date [...] in 3 months or sooner if needed. [employer] Other 09-08-2023 Evaluation note* Encounter Date Diagnosis Assessment Notes Treatment Notes Treatment Clinical Notes Dec, Adult ADHD (attentio n deficit hyperactivity disorder) (ICD-10 - F90.9) [employer] Other 09-07-2023 Evaluation note* Encounter Date Diagnosis Assessment Notes Treatment Notes Treatment Clinical Notes Dec, Adult ADHD (attentio n deficit hyperactivity disorder) (ICD-10 - F90.9) [employer] Other 08-30-2023 Evaluation note* Encounter Date [...] lifetime. Nov,utaneous candidiasis (ICD-10 - B37.2)Refilled diflucan. [employer] Other 07-11-2023 Hospital Discharge instructions* Discharge Instructions* RIZWAN Dietz CNP - 10/11/2022 8:08 PM EDT Please call and schedule a follow-up appointment with [facility]. Use an ice pack or [...] through Care Everywhere. * RICE: General Info (Beninese) * Ankle Sprain (Beninese) documented in [facility] encounterB[facility] Discharge instructions* Instructions* Radha Sanders MD - 08/19/2021 May use ice or heat, whichever feels better. May use Buffalo for pain. Prednisone as directed. Follow-up with [...] a follow up appointment THANK YOU!!! From [facility] and [facility] On behalf of the Emergency Department staff at [facility], I would like to thank you for giving us the opportunity to address your health care needs and concerns. We hope that during your visit, our service was delivered in a professional and caring manner. Please keep [facility] in mind as we walk [...] how we did during your visit at [email or web address] and let us know about your experience * Attachments The following attachments cannot be sent through Care Everywhere. * Herniated Disc (Beninese) documented in this encounterW[facility] CenterCelleration Phone: [email or web address] note* Diagnosis Herniated lumbar intervertebral disc- Primary Displacement of lumbar intervertebral disc without myelopathy documented in this encounter [employer] Phone: evaluation note* Diagnosis Gastroenteritis- Primary Other and unspecified noninfectious gastroenteritis and colitis documented in this encounter GIANA PEREZ [employer] Phone: [email or web address] note* Diagnosis Sprain of right ankle, unspecified ligament, initial encounter- Primary documented in this encounter [facility]EREval[facility] noteNo InformationNort Numedeon Other Evaluation note* Diagnosis 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 Pain in finger of right hand Pain in soft tissues of limb documented in this [facility] HealthcareEvaluation noteNo assessment information availableChillicothe Hospital Work Phone: Evaluation note* Diagnosis Postop check Follow-up examination, following unspecified surgery Low ferritin level Other nonspecific findings on examination of blood documented in this encounter [facility] HealthcareEvaluation note* Diagnosis Breast pain Mastodynia documented in this encounter [facility] HealthcareEvaluation note* Diagnosis Encounter to discuss procedure Menorrhagia with regular cycle Decreased libido [facility] Pre-op examination Menorrhagia with regular cycle Abnormal uterine bleeding (AUB) Pelvic pain Hormone disorder Unspecified endocrine disorder documented in this encounter [facility] HealthcareEvaluation note* Diagnosis Onset Date Resolution Status Admit Date Adult ADHD acuteJanuary 2024 9:46amWellness examinationacuteJanuary 2024 9:46am [facility] Work Phone: Evaluation note* Diagnosis Back pain, unspecified back location, unspecified back pain laterality, unspecified chronicity- Primary [facility] Diagnosis Acute left-sided low back pain with left-sided sciatica- Primary [facility]* Diagnosis Lumbar radiculopathy, chronic- Primary Urinary incontinence without sensory awareness Incontinence without sensory awareness Sensory deficit, left Spinal stenosis of lumbar region with neurogenic claudication [facility]* Diagnosis Herniated lumbar intervertebral disc- Primary Displacement of lumbar intervertebral disc without myelopathy [facility]* Diagnosis 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 Finger injury, right, initial encounter [facility]* Diagnosis Herniated lumbar intervertebral disc- Primary Displacement of lumbar intervertebral disc without myelopathy Lumbar radiculopathy, chronic [facility]* Diagnosis 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 [facility] Diagnosis Lumbar radiculopathy, chronic- Primary Herniated lumbar intervertebral disc Displacement of lumbar intervertebral disc without myelopathy documented in this encounter [facility] SystemEvaluation note* Diagnosis Hallux valgus of left foot- Primary Instability of left foot joint Tailor's bunion of left foot Acquired deformity of left toe 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 Equinus contracture of left ankle Left foot pain Pain in soft tissues of limb Vitamin D insufficiency documented in this encounter [facility] HealthcareEvaluation note* Diagnosis Well woman exam with routine gynecological exam Routine gynecological examination Breast cancer screening by mammogram documented in this encounter [facility]* Diagnosis Hallux valgus of left foot- Primary Instability of left foot joint Tailor's bunion of left foot Acquired deformity of left toe 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 Equinus contracture of left ankle documented in this encounter [facility] HealthcareEvaluation note* Diagnosis Preop examination- Primary Unspecified pre-operative examination Hypertension, unspecified type documented in this encounter [facility] note* Diagnosis S/P foot surgery- Primary Other postprocedural status Left foot pain Pain in soft tissues of limb Difficulty walking Difficulty in walking Instability of left ankle joint documented in this encounter [facility] HealthcareEvaluation note* Diagnosis S/P foot surgery- Primary Other postprocedural status Left foot pain Pain in soft tissues of limb documented in this encounter [facility] HealthcareEvaluation note* Diagnosis S/P foot surgery- Primary Other postprocedural status Left foot pain Pain in soft tissues of limb documented in this encounter [facility] HealthcareEvaluation note* Diagnosis S/P foot surgery- Primary Other postprocedural status Left foot pain Pain in soft tissues of limb documented in this encounter [facility] HealthcareEvaluation note* Diagnosis S/P foot surgery- Primary Other postprocedural status 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 Acquired deformity of right toe Tailor's bunionette, right documented in this encounter [facility] HealthcareHistory general Narrative - Reported* Type Description Date Medical History PCOS/insulin resistant Medical HistoryPCOS (polycystic ovarian syndrome)Medical HistoryFrequent headachesMedical HistoryGestational diabetesMedical HistoryPrediabetesSurgical Vivuiknskdxisaffvxfbsi9644Fphwshuq Lqqvvswfvzszmgcxvzr8613Yqwsdiso History c-agyjhgf0080,2020Hospitalization Historysee surgical hx [facility] [employer] Other Hospital Discharge instructions* Attachments The following attachments cannot be sent through Care Everywhere. * Gastroenteritis (Beninese) documented in this encounter[facility]ITALMy[facility] Work Phone: InstructionsNot on filedocumented in this encounter [facility] SystemInstructionsNot on filedocumented in this encounter [facility] SystemInstructions* Attachments The following attachments cannot be sent through Care Everywhere. * Radiculopathy (Beninese) * Spinal stenosis (Beninese) [facility] SystemInstructionsNot on file documented in this encounterProMer[facility] SystemInstructionsNot on file [facility] SystemInstructionsNot on file documented in [facility] SystemInstructions* Pre-Procedure Instructions - Bessie Boswell RN - 01/18/2024 3:45 PM EDT Your surgery/procedure is scheduled at [facility] on 01/25/24 at 10 am Arrival Time 8 am [facility] Address: [address] [place] [address], [address] [place] [address] in the Emergency Center Parking lot. Report to the front desk host in the Emergency/Surgery Registration lobby of the hospital. Notify your SURGEON if you develop any illness such as a cold, cough, fever, sore throat, vomiting or are hospitalized between now and your surgery. Please call Pre-Admission Clinic at [phone] if you have any questions prior to surgery. For questions the morning of surgery, call the Pre-op Department at [phone]. Medication Instructions (Do not stop your medications [...] would like to schedule therapy at a [facility] facility, please call [phone] ([phone]). Do not use lotions, creams, powders, perfume, make up, cologne or after-shaves day of surgery. Remove ALL jewelry including wedding rings, body piercings, hair extensions that contain metal, nail paraguayan, make-up, and contact lens. You may brush your teeth the morning of surgery, but do not swallow the water. Wear your dentures and partial plates to the hospital (no adhesive). Shower the night the before. If applicable, use the CHG (chlorhexidine gluconate) soap or wipes. Please be advised, [facility] has transitioned to a cashless payment [...] RIGHTS AND RESPONSIBILITIES As a patient at [facility], you have the right to: Receive medical care and be informed of who is taking care of you Be treated with dignity and respect Have a family member/canvas products sales representative of choice and your physician notified of your admission Receive information and actively participate in decisions about your care and treatment Refuse care, treatment and services Decide who may provide your support and speak for you Access zoroastrian and spiritual services Participate in ethical issues [...] of hospital charges and payment methods Patient/patient canvas products sales representative responsibilities are to: Provide information about health status to facilitate care, treatment and services Follow the treatment, plan, keep appointments and speak up when you do not understand the plan Respect the rights of other patients and healthcare personnel Follow organizational rules and regulations that support quality care and a safe environment Fulfill financial obligations as promptly as possible [facility] Figure 1 SystemInstructionsNot on filedocumented in this encounter [facility] Figure 1 SystemInstructionsNot on filedocumented in this encounter [facility] SystemInstructionsNot on filedocumented in this encounter [facility] SystemInstructionsNot on filedocumented in this encounter [facility] SystemMiscellaneous Notes* Pre-Procedure Instructions - eBssie Boswell RN - 01/18/2024 3:45 PM EDT Your surgery/procedure is scheduled at [facility] on 01/25/24 at 10 am Arrival Time 8 am [facility] Address: [address] [place] [address], [address] [address] in the Emergency Center Parking lot. Report to the front desk host in the Emergency/Surgery Registration lobby of the hospital. Notify your SURGEON if you develop any illness such as a cold, cough, fever, sore throat, vomiting or are hospitalized between now and your surgery. Please call Pre-Admission Clinic at [phone] if you have any questions prior to surgery. For questions the morning of surgery, call the Pre-op Department at [phone]. Medication Instructions (Do not stop your medications [...] would like to schedule therapy at a [facility] facility, please call [phone] ([phone]). Do not use lotions, creams, powders, perfume, make up, cologne or after-shaves day of surgery. Remove ALL jewelry including wedding rings, body piercings, hair extensions that contain metal, nail paraguayan, make-up, and contact lens. You may brush your teeth the morning of surgery, but do not swallow the water. Wear your dentures and partial plates to the hospital (no adhesive). Shower the night the before. If applicable, use the CHG (chlorhexidine gluconate) soap or wipes. Please be advised, [facility] has transitioned to a cashless payment [...] RIGHTS AND RESPONSIBILITIES As a patient at [facility], you have the right to: Receive medical care and be informed of who is taking care of you Be treated with dignity and respect Have a family member/canvas products sales representative of choice and your physician notified of your admission Receive information and actively participate in decisions about your care and treatment Refuse care, treatment and services Decide who may provide your support and speak for you Access zoroastrian and spiritual services Participate in ethical issues [...] of hospital charges and payment methods Patient/patient canvas products sales representative responsibilities are to: Provide information about health status to facilitate care, treatment and services Follow the treatment, plan, keep appointments and speak up when you do not understand the plan Respect the rights of other patients and healthcare personnel Follow organizational rules and regulations that support quality care and a safe environment Fulfill financial obligations as promptly as possible documented in this encounterJ.W. Ruby Memorial HospitalReason for referral (narrative)* Consultation (Routine) - Pending ReviewSpecialtyDiagnoses / ProceduresReferred By ContactReferred To ContactPhysical Medicine and Rehabilitation Diagnoses Herniated lumbar intervertebral disc Lumbar radiculopathy, chronic Jennie Colon APRN-ENGINE OILER [address] [facility] [address] [place] [address] Vishal Martin DO [address] [address] [place] [address] Referral IDStatusReasonStart DateExpiration DateVisits RequestedVisits [id number] Review Specialty Services Required / [facility] HospitalReason for referral (narrative)* Consultation (Routine) - Pending ReviewSpecialtyDiagnoses / ProceduresReferred By ContactReferred To ContactDignity Health [facility] Medicine Diagnoses Lumbar radiculopathy, chronic Herniated lumbar intervertebral disc Jennie Colon APRN-CNP [address] [address] Davis Silva MD [address] [place] [address] Referral IDStatusReasonStart DateExpiration DateVisits RequestedVisits [id number] Review/ [facility] Advance Directives No Advanced Directives Records FoundDocuments on File TypeDate RecordedPatient RepresentativeExplanationACP-Advance DirectiveACP-Power of Project Management Advance Directive Response Recorded Date/ Time Advance Directives No December 7:20pm Date ActivatedDate DmyppxqaoztLgdzulhd93/24/2024 2:30 01/26/2024 2:17 PM Advance Directive Response [...] MR lumbar spine without contrast Jennie Colon, ICT CUSTOMER SUPPORT OFFICER-ENGINE OILER [address] [address] [facility] [address] [place] [address] Phone: [phone] Referral IDStatusReasonStart DateExpiration DateVisits RequestedVisits [id number] Review/ Additional Source Comments Reason for Visit (unrecogniz ed section and content) ReasonCommentsBack PainReasonCommentsAbdominal PainUpper mid began 0400 Sat. Thinks its from bad vegetablesEmesisDiarrheaReasonCommentsAnkle PainRolled right ankle on a tree hxkhgmJofpqaTnndgeecOrpnpd-cbJckytzPrumtmomPnra-za VisitReason CommentsBreast ProblemReasonCommentsdiscuss procedurePt wants to discuss a hysterectomy vs. An ablationReasonCommentsEndometrial BiopsyPre-op VisitReason CommentsBack PainPatient states he has a herniated disk in her L5, S1. [facility] butcan't get in until late [...] site of digit, initial encounter Nicole Lockwood, ICT CUSTOMER SUPPORT OFFICER-ENGINE OILER [address] [place] [address] Rohit Smith MD [address] [facility] [address] [place] [address] Referral IDStatusReasonStart DateExpiration DateVisits RequestedVisits [id number] Review Specialty Services Required [id number]-hbEf ring mallet finge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 ReasonCommentsFoot PainPT is here today for BL foot pain, Lt is worse. Painful bunion and tailors bunion area. Painful forher constantly, she purchased new shoes.SS: 9.5-10ReasonB[facility] Women VisitReasonCommentsPost Op#1Mandy Radha Dumont is a 43 y.o. female who presents for Post Op#1.ReasonCommentsPOV#2Mandy Radha Dumont is a 43 y.o. female who presents for Post Op#2.Date of surgery 08/08/2024: Patient continues 325mg aspirin, icing and advil prn.ReasonComments FUVMandbenji Dumont is a 43 y.o. female who presents for Post Op#3.Date of surgery 08/08/2024: Patient continues 325mg aspirin, icing and advil prn.ReasonComments Nestor Dumont is a 43 y.o. female who [...] to manage pain 12 tablet /rescriptionSigDispensedRefillsStart DateEnd ondansetron (ZOFRAN-ODT) 4 MG disintegrating tablet Take 1 tablet by mouth 3 times daily as needed for Nausea or Vomiting 21 tablet Scheduled Active and Recently Administ ered Medications (unrecognized section and content) Medication Order// morphine (PF) injection 10 mg (COMPLETED) 10 mg, IntraMUSCular, ONCE, 1 dose, On Natacha 08/19/21 at 1700 * 1655 (Given - Provider: Luiza Gerard RN - Comment: Medication would not scan at bedside. Verified with [facility] prior to administration.) Medication Order/ 0.9 [...] 1215 * 1215 (Given - Provider: Flor Garcia, ELVIS) Medication Order//06/2021 iopamidol (ISOVUE-370) 76 % injection 75 mL (COMPLETED) 75 mL, IntraVENous, IMG ONCE PRN, 1 dose, Starting on Mon01/03/22 at 1233, Until Mon01/03/22 at 1240, Other * 1240 (Given - Provider: Burt Robles) sodium chloride flush 0.9 % injection 10 mL 10 mL, IntraVENous, PRN, Starting on Mon01/03/22 at 1233, Until Discontinued, Line Care * 1241 (Given - Provider: Burt Robles) Medication Order//02/2023 HYDROcodone-acetaminophen (NORCO) 5-325 MG per tablet 1 tablet (COMPLETED) 1 tablet, Oral, ONCE, 1 dose, On Mon10/11/22 at 1999, Maximum dose of acetaminophen is 4000 mg fromall sources in 24 hours. * 2052 (Given - Provider: Becky Toussaint, ELVIS) ketorolac (TORADOL) injection 30 mg (COMPLETED) 30 mg, IntraMUSCular, ONCE, 1 dose, On Mon10/11/22 at 1999, Do not administer for more than 5 days. * 2051 (Given - Provider: Becky Toussaint, ELVIS) Care Teams (unrecognized sec [...] Care Provider Active Start: July 08, 2024 Wilner Ryanending ProviderActiveStart: July 08, 2024 Team Status: Active Member Role Status Dates Johnathon Winter MD Primary Care Provider Active Start: July 22, 2024 Germán Aguilarending ProviderActiveStart: July 22, 2024 Team Status: Inactive Member Role Status Dates Johnathon Winter MD Primary Care Provide r, Attending Provider Active Start: July 29, 2024 End: July 29, 2024Team MemberRelationshipSpecialtyStart DateEnd Date Johnathon Winter MD PCP - [facility]03/08/16Team MemberRelationshipSpecialtyStart DateEnd Date Johnathon Winter MD PCP - [facility]03/08/16Team MemberRelationshipSpecialtyStart DateEnd Date Johnathon Winter MD [facility] - [facility]/08/16Team MemberRelationshipSpecialtyStart DateEnd Date Johnathon Winter MD [address] [place] [facility] [place] [address] PCP - [facility]12/12/22 Team Status: Active Member Role Status Dates [...] DateEnd Date Johnathon Winter MD [address] [place] [facility] [place] [address] PCP - [facility]12/12/22Team MemberRelationshipSpecialtyStart DateEnd Date Johnathon Winter MD [address] [place] [address] PCP - GeneralFamily Medicine12/12/22Team MemberRelationshipSpecialtyStart DateEnd Date Johnathon Winter MD [address] [place] [facility] [place] [address] PCP - GeneralFamily Medicine12/12/22Team MemberRelationshipSpecialtyStart DateEnd Date Johnathon Winter MD [address] [place] [facility] [place] [address] PCP - GeneralFamily Medicine12/12/22Team MemberRelationshipSpecialtyStart DateEnd Date Johnathon Winter MD [address] [place] [facility] [place] [address] PCP - GeneralFamily Medicine12/12/22Team MemberRelationshipSpecialtyStart DateEnd Date Johnathon Winter MD [address] [place] [facility] [place] [address] PCP - GeneralFamily Medicine12/12/22Team MemberRelationshipSpecialtyStart DateEnd Date Johnathon Winter MD [address] [place] [facility] [place] [address] PCP - GeneralFamily Medicine12/12/22Team MemberRelationshipSpecialtyStart DateEnd Date Johnathon Winter MD [address] [place] [facility] [place] [address] PCP - GeneralFamily Medicine12/12/22Team MemberRelationshipSpecialtyStart DateEnd Date Johnathon Winter MD [address] [place] [address] PCP - Dwilhgj12/11/23Team MemberRelationshipSpecialtyStart DateEnd Date Johnathon Winter MD [address] [place] [address] PCP - [facility]12/12/22 Team Status: Active Member Role Status Dates [...] 2024Team MemberRelationshipSpecialtyStart DateEnd Date Johnathon Winter MD [address] [place], [place] [id number] PCP [facility]03/13/23Team MemberRelationshipSpecialtyStart DateEnd Date Johnathon Winter MD [address] [place], [place] [id number] PCP [facility]03/13/23 Team Status: Active Member Role Status Dates Johnathon Winter MD Primary Care Provide r, Attending Provider Active Start: April 15, 2024 Team MemberRelationshipSpecialtyStart DateEnd Date Johnathon Winter MD [address] [place] [address] PCP - Zkawasi05/11/23Team MemberRelationshipSpecialtyStart DateEnd Date Johnathon Winter MD [address] [place] [address] PCP - Oycwmsh35/11/23Team MemberRelationshipSpecialtyStart DateEnd Date Johnathon Winter MD [address] [place] [address] PCP - Hjxrapx80/11/23Team MemberRelationshipSpecialtyStart DateEnd Date Johnathon Winter MD [address] [place] [address] PCP - Pohpcsm48/11/23Team MemberRelationshipSpecialtyStart DateEnd Date Johnathon Winter MD [address] [place] [address] PCP - Kghkxom18/11/23Team MemberRelationshipSpecialtyStart DateEnd Date Johnathon Winter MD [address] [place] [address] PCP - GeneralFamily Medicine12/12/22Team MemberRelationshipSpecialtyStart DateEnd Date Johnathon Winter MD [address] [place] [address] PCP - GeneralFamily Medicine12/12/22Team MemberRelationshipSpecialtyStart DateEnd Date Johnathon Winter MD [address] [place] [address] PCP - GeneralFamily Medicine12/12/22Team MemberRelationshipSpecialtyStart DateEnd Date Johnathon Winter MD [address] [place] [facility] [place] [address] PCP - GeneralFamily Medicine12/12/22Team MemberRelationshipSpecialtyStart DateEnd Date Johnathon Winter MD [address] [place] [facility] [place] [address] PCP - GeneralFamily Medicine12/12/22Team MemberRelationshipSpecialtyStart DateEnd Date Johnathon Winter MD [address] [place] [address] PCP - P[place]65/11/23Team MemberRelationshipSpecialtyStart DateEnd Date Johnathon Winter MD [address] [place] [facility] [place] [address] PCP - GeneralFamily Medicine12/12/22Team MemberRelationshipSpecialtyStart DateEnd Date Johnathon Winter MD [address] [place] [facility] [place] [address] PCP - GeneralFamily Medicine12/12/22Team MemberRelationshipSpecialtyStart DateEnd Date Johnathon Winter MD [address] [place] [facility] [place] [address] PCP - GeneralFamily Medicine12/12/22Team MemberRelationshipSpecialtyStart DateEnd Date Johnathon Winter MD [address] [place] [facility] [place] [address] PCP - GeneralFamily Medicine12/12/22Team MemberRelationshipSpecialtyStart DateEnd Date Johnathon Winter MD [address] [place] [address] PCP - Lxfmxif43/11/23Team MemberRelationshipSpecialtyStart DateEnd Date Johnathon Winter MD [address] [place] [facility] [place] [address] PCP - GeneralFamily Medicine12/12/22Team MemberRelationshipSpecialtyStart DateEnd Date Johnathon Winter MD [address] [place] [facility] [place] [address] PCP - GeneralFamily Medicine12/12/22Team MemberRelationshipSpecialtyStart DateEnd Date Johnathon Winter MD [address] [place] [address] PCP - GeneralFamily Medicine12/12/22Team MemberRelationshipSpecialtyStart DateEnd Date Johnathon Winter MD [address] [place] [address] PCP - GeneralFamily Medicine12/12/22Team MemberRelationshipSpecialtyStart DateEnd Date Johnathon Winter MD [address] [place] [facility] [place] [address] PCP - GeneralFamily Medicine12/12/22Team MemberRelationshipSpecialtyStart DateEnd Date Johnathon Winter MD [address] [place] [facility] [place] [address] PCP - GeneralFamily Medicine9/11/23Team MemberRelationshipSpecialtyStart DateEnd Date Johnathon Winter MD [address] [place] [address] PCP - GeneralFamily Medicine12/12/22Team MemberRelationshipSpecialtyStart DateEnd Date Johnathon Winter MD [address] [place] [address] PCP - GeneralFamily Medicine12/12/22Team MemberRelationshipSpecialtyStart DateEnd Date Johnathon Winter MD [address] [place] [id number] PCP - GeneralFamily Medicine12/12/22Team MemberRelationshipSpecialtyStart DateEnd Date Johnathon Winter MD [address] [place] [address] PCP - Ktf[place]t35/11/23 INFORMATION SOURCE (unrecogn ized section and content) DATE CREATED AUTHOR 07/17/[address] [facility] DATE CREATED AUTHOR AUTHOR'S ORGANIZ ATION 10/12/2022 [facility] DATE CREATED AUTHOR AUTHOR'S ORGANIZ ATION 12/14/2023 [facility] DATE CREATED AUTHOR AUTHOR'S ORGANIZ ATION 01/26/2024 [facility] DATE CREATED AUTHOR AUTHOR'S ORGANIZ ATION 07/09/2024 [facility] DATE CREATED AUTHOR AUTHOR'S ORGANIZ ATION 11/01/2024 [facility] DATE CREATED AUTHOR AUTHOR'S ORGANIZ ATION 01/11/2025 [facility] DATE CREATED AUTHOR AUTHOR'S ORGANIZ ATION 01/17/2025 [facility] DATE CREATED AUTHOR AUTHOR'S ORGANIZ ATION 01/30/2025 [facility] EPIC DATE CREATED AUTHOR AUTHOR'S BEBETO SWAN 02/10/2025 [facility] Goals (unrecognized section and content) Goals may [...] BE BASED ON THE PRIMARY CLINICAL RECORDS. [employer] [facility]. provides no warranty or guarantee of the accuracy or completeness of information in this document.
[2025-02-24 12:00] VITALS: BP 121/89; PULSE 92; TEMP 36.4; O2SAT 99
[2025-02-24 12:50] VITALS: BP 118/83; BP 119/82; PULSE 82; PULSE 85; O2SAT 98
[2025-02-24] MEDS: BUPIVACAINE HCL 0.25% PF 25 MG/10 ML VIAL INJ (12:52)
[2025-02-24] MEDS: IOHEXOL 240 MG/ML - 10 ML VIAL INJ (12:52)
[2025-02-24] MEDS: 0.9 % SODIUM CHLORIDE 10 ML SYRINGE - SALINE FLUSH INJ (12:52)
[2025-02-24] MEDS: LIDOCAINE HCL 2% 400 MG/20 ML MDV 5 ML INJ (12:52)
[2025-02-24] MEDS: METHYLPREDNISOLONE ACETATE 80 MG/ML VIAL INJ (12:52)
--- NOTE | 2025-02-24 12:53 | W.PM.PROCNOT ---
Date of procedure: 02/24/25 Pre-op diagnosis: Pain due to lumbar stenosis with neurogenic claudication Post-op diagnosis: same as pre-op Procedure: Procedure: Bilateral L5-S1 transforaminal epidural steroid injection Medications: Bupivacaine 0.25% 2cc, lidocaine 2% 1cc, depomedrol 80mg The patient was seen and examined in the preoperative holding area.? Informed consent was obtained and placed on the chart.? Patient was brought to the medical procedure unit and placed in the prone position where a timeout was completed verifying the correct patient, procedure site, position, and planned special equipment using sterile aseptic technique.? Under direct fluoroscopic visualization a 25-gauge Quincke tipped spinal needle was advanced at level left L5-S1 to the designated neural foramen where contrast dye was injected to show adequate spread.? There was no evidence of vascular or adverse uptake.? Epidural spread was appreciated.? The above-mentioned injectate was then placed in a 1.5 mL aliquot preceded by negative aspiration.? The needle was removed. The same procedure, at the same level, was completed on the opposite side. ? Patient was taken to the postprocedural recovery area and monitored for an appropriate length of time before found suitable for discharge in the accompaniment of a responsible adult. Anesthesia: Local Surgeon: Christiano Rivera Pathology: none sent Condition: stable Disposition: no change
== END 2025-02-24 12:56 | disposition home or self-care (01) ==
PROVIDERS: PCP Family Medicine; Visit Provider Anesthesiology
DX: M48.062 Spinal stenosis, lumbar region with neurogenic claudication (principal); M54.50 Low back pain, unspecified; G89.29 Other chronic pain
CPT/HCPCS: 64483; J0665; J1010; Q9966

== ENCOUNTER 2025-03-12 10:50 | Outpatient (OUT) | payer BC, SELFPAY ==
--- OUTSIDE RECORDS SUMMARY | 2025-03-12 10:55 | XMS_ITS | CCD ---
Author Organization [facility] Care Team Providers Care Product Safety Professional Name Role Phone Johnathon Winter MD Primary Care Provider [phone] JESSICA ., DR ROMERO Admitting Unavailable JESSICA [...] Unavailable Johnathon Winter MD Primary Care Provider [phone] MD Tee Peterson Attending Provider [phone] DO Sanjeev Lopez Attending Provider Tee Peterson [...] Winter MD Primary Care Provider Johnathon Winter Primary Care Unavailable KELI Resendez Attending Unavailable KELI Resendez Admitting Unavailable Winter, Johnathon E Primary Care Unavailable Santy Mckeon Attending Unavailable Santy Mckeon Admitting Unavailable Winter, Johnathon E Primary Care Unavailable Johnathon Winter MD Primary Care Provider Johnathon Winter MD Primary Care Provider [phone] Johnathon Winter MD Primary Care Provider [phone] Johnathon Winter MD Primary Care Provider [phone] RUTHIE CHEN Attending Unavailable RUTHIE CHEN Attending Unavailable Miguel SÁNCHEZ, Christiano Mcgovern Attending Unavailable Felicia SÁNCHEZ, Bhavin Primary Care Unavailable JORDANJUDI Attending Unavailable WINTER, JOHNATHON E Referring Unavailable WINTER, JOHNATHON E Primary Care Unavailable JUDI ORTEGA Attending Unavailable WINTER, JOHNATHON E Referring Unavailable WINTER, JOHNATHON E Primary Care Unavailable JUDI ORTEGA Attending Unavailable WINTER, JOHNATHON E Referring Unavailable WINTER, JOHNATHON E Primary Care Unavailable JUID ORTEGA Attending Unavailable WINTER, JOHNATHON E Referring [...] Facility (20 sources)Topiramate; Translations: [TOPIRAMATE]Propensity to adverse ghvxpmeph76-16-6579DcabzsbxXLBW [facility] (10 sources)Adhesive agent; Translations: [ADHESIVE]Propensity to adverse reactions to drug (disorder)51-18-5747OvmnFriZvwoqh [facility] (7 sources)topiramateDrug Bekmafu35-59-9234Sweeabbz, Other (See Comments) [employer] Work Phone: Medications Current Medications MedicationDrug Class(es)DatesSig (Normalized)Sig (Original)0.5 ML tirzepatide 20 MG/ML Auto-Injector [Mounjaro] (6 sources)Mounjaro 10 MG/0.5ML as directed Subcutaneous Activeacetaminophen 325 mg oral tablet (2 sources)Start: 77-38-5626cddj 2 tablets by mouth every six hours as needed for painacetaminophen (TYLENOL) 325 mg tablet Take 2 tablets (650 mg total) by mouth every 6 (six) hours asneeded for pain. 30 tablet 01/26/2024 Active acetaminophen 325 mg / HYDROcodone bitartrate 5 mg oral tablet (3 sources)Opioid AgonistStart: 01-26-2024 End: 12-55-8773MRAYMthfgmg-acetaminophen (NORCO) 5-325 mg per tablet Indications: Panniculitis affecting back Take1 tablet by mouth every 6 (six) hours as needed for pain for up to 7 days. Max Daily Amount: 4 tablets 20 tablet 01/26/2024 02/02/2024 ActiveStart: 10-11-2022 End: 70-13-5813BQZMHtjyowh-acetaminophen (NORCO) 5-325 MG per tablet 1 tablet Start: 08-19-2021 End: 36-30-9350YYOHWqcmeiy-acetaminophen (NORCO) 5-325 MG per tablet Indications: Herniated lumbar intervertebral disc Take 1 tablet by mouth every 6 hours as needed for Pain for up to 3 days. Intended supply: 3 days. Take lowest dose possible to manage pain 12 tablet 0 08/19/2021 08/22/2021 ActiveamLODIPine 5 mg oral tablet (20 sources)Dihydropyridine Calcium Channel BlockerStart: 07-03-2024 End: 10-40-9582tpak 2 tablets by mouth in the morningamLODIPine (NORVASC) 5 mg tablet Take 2 tablets (10 mg total) by mouth in the morning. 07/03/2024 ActiveStart: 07-03-2024 End: 95-07-4865hxac 1 tablet by mouth in the morningamLODIPine (Norvasc) 10 MG tablet Take 10 mg by mouth in the morning. 07/03/2024 07/18/2025 ActiveStart: 07-03-2024 End: 00-10-5085wxeb 1 tablet by mouth in the morningamLODIPine [...] Glucometer) w/Device kit (20 sources)Start: 09-20-2023 End: 42-51-7993Buqaw Glucose Monitoring Suppl (D-Care Glucometer) w/Device kit Indications: Pre-diabetes 1 kit Daily Use four times daily to check FSBS. In the morning prior to breakfast & 1 hour after each meal for a total of 4times daily. 1 kit 09/20/2023 09/19/2024 Activecephalexin 500 mg oral capsule (1 source)Cephalosporin AntibacterialStart: 01-26-2024 End: 93-09-2214fidv 1 capsule by mouth in the morning, [...] oral tablet (20 sources)Muscle RelaxantStart: 08-12-2024 End: 13-20-6533lgwa 1 tablet by mouth three times daily as needed for muscle spasmscyclobenzaprine (Flexeril) 10 MG tablet Indications: Muscle cramps Take 1 tablet (10 mg) by mouth 3(three) times a day as needed for muscle spasms for up to 10 days 30 tablet 08/12/2024 ActiveStart: 48-86-4874thaj 1 tablet by mouth three times dailycyclobenzaprine (FLEXERIL) 10 mg tablet Take 1 tablet (10 mg total) by mouth 3 (three) times a day.30 tablet 01/26/2024 ActiveStart: 04-18-6688bhqjzvragrkolzo (FLEXERIL) 10 mg tablet Indications: Acute left-sided [...] mg oral tablet (13 sources)BenzodiazepineStart: 06-29-2023 End: 74-64-1796qzuxqNAC (Valium) 10 MG tablet TAKE 1 TABLET BY MOUTH PREOP 06/29/2023 02/26/2024 Discontinueddocusate sodium 100 mg oral capsule (2 sources)Start: 71-59-7945cgcj 1 capsule by mouth in the morning, then take 1 capsule by mouth at bedtimedocusate sodium (COLACE) 100 mg capsule Take 1 capsule (100 mg total) by mouth in the morning and 1capsule (100 mg total) before bedtime. 30 capsule 01/26/2024 Activeescitalopram 10 mg oral tablet (20 sources)Serotonin Reuptake InhibitorStart: 32-85-8959uvmt 1 tablet by mouth in the morningescitalopram (Lexapro) 10 MG tablet Take 10 mg by mouth in the morning. 07/17/2024 Activefluconazole 100 mg oral tablet (6 sources)Azole AntifungalStart: 05-01-2023 End: 35-95-7890rmsc 1 tablet by mouth in the morningfluconazole (Diflucan) 100 MG tablet Indications: Follow-up encounter involving medication , Superficial skin infection Take 1 tablet (100 mg) by mouth in the morning for 14 days. 14 tablet 0 05/01/2023 05/15/2023 Activetake 1 tablet by mouth every twenty-four hoursFluconazole 100 MG 1 tablet Orally daily for 10 days Activegelatin, empty no. 00, capsule (3 sources)Start: 76-93-7008koelnrm, empty no. 00, capsule Compound medication for hypothryroid 04/16/2024 ActiveStart: 55-76-7977excrtcv, empty no. 00, capsule 04/16/2024 ActivehydroCHLOROthiazide 25 mg / metoprolol tartrate 50 mg oral tablet (3 sources)Thiazide Diuretic, beta-Adrenergic BlockerStart: 05-27-2024 metoprolol-hydroCHLOROthiazide (Lopressor HCT) 50-25 MG tablet 05/27/2024 Active hydrOXYzine hydrochloride 25 mg oral tablet (3 sources)AntihistamineStart: 13-28-6042puxr 1 tablet by mouth four times daily as needed for anxietyhydrOXYzine (ATARAX) 25 mg tablet Indications: Generalized anxiety disorder Take 1 tablet (25 mg total) by mouth 4 (four) times a day as needed for anxiety (or sleep). 120 tablet 2 10/21/2024 Activeisopropyl alcohol 0.7 ml/ml medicated pad (20 sources)Start: 38-93-8981KY ALCOHOL SWABS pads, medicated 03/28/2024 Active Start: 54-10-5686Waeuxte Swabs (B-D SINGLE USE SWABS REGULAR) pads 12/24/2023 ActiveStart: 09-14-2023 End: 37-94-4402Zlsooyp Swabs (Alcohol Prep Pad) 70 % pads Indications: Pre- diabetes Apply 1 Pad topically in the morning and 1 Pad before bedtime. Use twice daily to check FSBS.. 180 each 3 09/14/2023 12/13/2023 Active lisdexamfetamine dimesylate 40 mg oral capsule (20 sources)Central Nervous System StimulantStart: 26-14-2508gmgf 1 capsule by mouth once daily in the morninglisdexamfetamine (VYVANSE) 40 mg capsule Indications: Attention deficit hyperactivity disorder (ADHD), predominantly inattentive type Take 1 capsule (40 mg total) by mouth every morning. Max Daily Amount: 40 mg 30 capsule 01/03/2025 ActiveStart: 25-27-9321qucp 1 capsule by mouth once daily in the morninglisdexamfetamine (VYVANSE) 40 mg capsule Indications: Attention deficit hyperactivity disorder (ADHD), predominantly inattentive type Take 1 capsule (40 mg total) by mouth every morning. Max Daily Amount: 40 mg 30 capsule 11/04/2024 ActiveStart: 12-08-2022 End: 80-34-0574uixe 1 capsule by mouth once dailyLisdexamfetamine 50 mg capsule Discontinued 50 MG PO Daily June 22, 2023 June 23, 2023 9:10amStart: 72-62-7501fxay 1 capsule by mouth every twenty-four hoursVyvanse 30 MG 1 capsule in the morning Orally Once a day for 30 days Nov, Activelosartan potassium 100 mg oral tablet (20 sources)Angiotensin 2 Receptor BlockerStart: 05-06-2024 End: 10-01-6263mdfy 1 tablet by mouth in the morninglosartan (COZAAR) 100 mg tablet Take 1 tablet (100 mg total) by mouth in the morning. 05/06/2024 Active Start: 04-11-2024 End: 93-69-7936vtkp 1 tablet by mouth once dailyLosartan 50 [...] ActivemethylPREDNISolone 4 mg oral tablet (5 sources)CorticosteroidStart: 34-63-3339eimhnrUNVQXYTskbce (MEDROL, JW,) 4 mg tablet Indications: Herniated lumbar intervertebral disc Take 1 tablet (4 mg total) by mouth See Admin Instructions. Use as directed by package instructions 21 tablet 0 05/15/2023 Pvxyxh33 hr metoprolol succinate 50 mg extended release oral tablet (20 sources)beta-Adrenergic BlockerStart: 00-87-1769fqxy 1 tablet by mouth every twenty-four hoursmetoprolol succinate XL (TOPROL XL) 50 mg 24 hr tablet Take 1 tablet (50 mg total) by mouth. 05/17/2024 ActiveStart: 05-17-2024 End: 90-77-4903kfmg 1 tablet by mouth once dailyMetoprolol Succinate 50 mg tablet extended release 24 hr Active 50 MG PO daily June 18, 2024 8:43am MONOJECT 3CC SYRINGE 3 ML misc (20 sources)Start: 87-91-2307TWAUATWU 3CC SYRINGE 3 ML misc 01/02/2024 Active Mounjaro 10 MG/0.5ML solution auto-injector (7 sources)Start: 01-05-2024 End: 29-62-2322uxxfhc 0.5 mL by subcutaneous injection every weekMounjaro 10 MG/0.5ML solution auto-injector Indications: Pre-diabetes INJECT 0.5 MLS SUBCUTANEOUSLYONCE WEEKLY 2 mL 3 01/05/2024 07/16/2024 Discontinued (Discontinued by another clinician)Start: 66-29-9220inhupn 0.5 mL by subcutaneous injection every weekMounjaro 10 MG/0.5ML solution auto-injector Indications: Pre-diabetes INJECT 0.5 MLS SUBCUTANEOUSLYONCE WEEKLY 2 mL 3 01/05/2024 Activemounjaro 10 mg/0.5ml solution pen-injector (6 sources)Mounjaro 10 MG/0.5ML as directed Subcutaneous ActiveMounjaro 12.5 MG/0.5ML solution auto-injector (20 sources)Start: 67-17-9335ugsuux 0.5 mL by subcutaneous injection every week Mounjaro 12.5 MG/0.5ML solution auto-injector Indications: Insulin resistance , Weight gain inject 0.5 milliliters UNDER THE SKIN ONCE WEEKLY 2 mL 3 12/27/2024 ActiveStart: 70-01-0715cktpie 0.5 mL by subcutaneous injection every week Mounjaro 12.5 MG/0.5ML solution auto-injector Indications: Insulin resistance , Weight gain inject 0.5 milliliters UNDER THE SKIN ONCE WEEKLY 2 mL 3 10/02/2024 ActiveStart: 68-96-2117kixmcz 0.5 mL by subcutaneous injection every week Mounjaro 12.5 MG/0.5ML solution auto-injector Indications: Insulin resistance , Weight gain inject 0.5 milliliters UNDER THE SKIN ONCE WEEKLY 2 mL 3 07/05/2024 ActiveMOUNJARO 7.5 mg/0.5 mL pen injector (10 sources)Start: 71-69-6074jgvgwx 7.5 mg by subcutaneous injection every week MOUNJARO 7.5 mg/0.5 mL pen injector Inject 7.5 mg under the skin once a week. 02/27/2023 ActiveStart: 69-51-9597bjlxol 7.5 mg by subcutaneous injection every weekMOUNJARO 7.5 mg/0.5 mL pen injector Inject 7.5 mg under the skin once a week. 0 02/27/2023 Wgevalhgnonypuefdr-fij-jbwy-FA-vit K 18 mg iron-400 mcg-25 mcg tablet (3 sources)nobqqjnhsrvt-wnb-pdon-FA-vit K 18 mg iron-400 mcg-25 mcg tablet Take by mouth. Activenystatin 100 unt/mg topical powder (20 sources)Polyene AntifungalStart: 10-25-2024 End: 50-22-4285sgivvwtp (Mycostatin) 959804 UNIT/GM powder Indications: Skin irritation Apply topically 3 (three) times a day as needed for rash 30 g 1 10/25/2024 11/24/2024 ActiveStart: 05-01-2023 End: 60-59-5016sgpbepco (Mycostatin) cream Indications: Superficial skin infection Apply topically 2 (two) times aday Dispense cream that does NOT have perfumes added. 30 g 3 09/21/2023 09/20/2024 ActiveStart: 69-59-0694pcufydhw (MYCOSTATIN) powder Apply 1 Application topically in the morning and 1 Application before bedtime. 04/14/2023 ActiveStart: 00-87-3239itzsvdjp (Mycostatin) 742489 UNIT/GM powder Indications: Skin irritation APPLY TO AFFECTED AREA TOPICALLY EVERY DAY 30 g 1 04/14/2023 Activeondansetron 4 mg disintegrating oral tablet (20 sources)Serotonin-3 Receptor AntagonistStart: 26-76-5920uxomzvhguio ODT (Zofran-ODT) 4 MG disintegrating tablet Indications: Nausea Dissolve one tablet on tongue EVERY 6 HOURS NEEDED FOR NAUSEA AND VOMITING 30 tablet 3 11/20/2024 ActiveStart: 87-49-2938avrzvbjragm ODT (Zofran-ODT) 4 MG disintegrating tablet Indications: Nausea DISSOLVE ONE TABLET UNDER THE TONGUE EVERY 6 HOURS NEEDED FOR NAUSEA AND VOMITING 30 tablet 2 06/27/2024 ActiveStart: 65-45-7831tsiy 1 tablet by mouth every eight hours as needed for nausea and vomitingondansetron ODT (ZOFRAN ODT) 4 mg disintegrating tablet Dissolve 1 tablet (4 mg total) on tongue every 8 (eight) hours as needed for nausea or vomiting. 30 tablet 01/26/2024 ActiveStart: 04-11-2023 End: 98-73-3048bhcv 1 tablet by mouth every six hoursondansetron ODT (ZOFRAN ODT) 4 mg disintegrating tablet Dissolve 1 tablet (4 mg total) on tongue every 6 (six) hours. 0 04/11/2023 05/11/2023 ActiveStart: 74-81-1058clpe 1 tablet by mouth three times daily as needed for nauseaondansetron (ZOFRAN-ODT) 4 MG disintegrating tablet Take 1 tablet by mouth 3 times daily as needed for Nausea or Vomiting 21 tablet 0 01/03/2022 ActiveStart: 01-03-2022 End: 71-13-1697piahqgkdoxu (ZOFRAN) injection 4 mgpolysaccharide iron complex 391 mg oral capsule (2 sources)Start: 01-03-2024 End: 53-63-8166odmg 1 capsule by mouth once dailyiron polysaccharides (ProFe) 391.3 (180 Fe) MG capsule Indications: Low ferritin level Take 1 capsule (391.3 mg) by mouth Daily 30 capsule 6 01/03/2024 02/02/2024 Activeprasterone, DHEA, (DHEA ORAL) (1 source)take 200 mg by mouth in the morningprasterone, DHEA, (DHEA ORAL) Take 200 mg by mouth in the morning. ActivepredniSONE 10 mg oral tablet (1 source)Start: 08-19-2021 End: 61-32-7861jgfa 4 tablets by mouth once dailypredniSONE (DELTASONE) 10 MG tablet Take 4 tablets by mouth once daily for 5 days 20 tablet 0 08/19/2021 08/29/2021 ActivePrenatal Wbq-Rew-KS-Fish Oil ([facility] GUMMY) 0.4-113.5 MG CHEW (2 sources) Jpj-Lhs-XV-Fish Oil ([facility] GUMMY) 0.4-113.5 MG CHEW Take 2 Units by mouth daily 0 Active5 ml sodium chloride 9 mg/ml injection (2 sources)Start: 49-93-5298bdegct chloride flush 0.9 % injection 10 mLStart: 01-03-2022 End: .9 % sodium chloride bolusTirzepatide (5 sources)Start: 78-86-9546Ibaijmcxlpt 10 mg/0.5 mL pen injector Active 12.5 MG SUBCUT As Directed May 17, 2024 12:13pmFreeTextSig: as directed Subcutaneous; Note: Source Status: Taking; Provider: jessica adamesyStart: 76-48-8893Pjwrcemfwtn 10 mg/0.5 mL pen injector Active 12.5 MG SUBCUT As Directed May 17, 2024 11:13amFreeTextSig: as directed Subcutaneous; Note: Source Status: Taking; Provider: jessica Boggsart: 04-11-2024 End: 24-58-4687Gyijosaeukp 10 mg/0.5 mL pen injector Discontinued MG SUBCUT As Directed April 11, 2024 1:00am May 17, 2024 12:13pm FreeTextSig: as directed Subcutaneous; Note: Source Status: Taking; Provider: jessica Boggsart: 04-11-2024 End: 66-38-5465Tzkaiqcxbgh 10 mg/0.5 mL pen injector Discontinued MG SUBCUT As Directed April 11, 2024 12:00am May 17, 2024 11:13am FreeTextSig: as directed Subcutaneous; Note: Source Status: Taking; Provider: jessica Boggsart: 53-82-0164Hzmjyhizzyx 10 mg/0.5 mL pen injector Active MG SUBCUT As Directed April 11, 2024 12:00am FreeTextSig: as directed Subcutaneous; Note: Source Status: Taking; Provider: jessica Kingsleyirzepatide (Mounjaro) 10 MG/0.5ML solution pen-injector (11 sources)Start: 20-90-9435bcxjgj 0.5 mL by subcutaneous injection every week [...] (Mounjaro) 7.5 MG/0.5ML solution pen-injector (2 sources)Start: 42-32-2185tlzqnv 0.5 mL by subcutaneous injection every week Tirzepatide (Mounjaro) 7.5 MG/0.5ML solution pen-injector Indications: Insulin resistance INJECT 0.5 ML UNDER THE SKIN 1 (ONE) TIME PER WEEK FOR 28 DAYS. 2.5 mL 1 02/27/2023 ActivetiZANidine 2 mg oral tablet (1 source)Central alpha-2 Adrenergic AgonistStart: 77-46-9799caxt 1 tablet by mouth once daily as neededtiZANidine (ZANAFLEX) 2 MG tablet Take 2 tablets by mouth nightly as needed (muscle spasms) 10 tablet 0 02/16/2022 ActiveViloxazine (12 sources)Start: 22-15-5458gwyx 2 capsules by mouth every twenty-four hours in the morningviloxazine (QELBREE) 200 mg capsule,extended release 24hr Indications: ADHD (attention deficit hyperactivity disorder), inattentive type Take two 200 mg capsules (400 mg total) in the morning by mouth. 63 capsule 11/08/2024 ActiveStart: 13-32-5103ojbd 2 capsules by mouth every twenty-four hours in the morningviloxazine (QELBREE) 200 mg capsule,extended release 24hr Indications: Attention deficit hyperactivity disorder (ADHD), predominantly inattentive type Take 400 mg by mouth in the morning. 60 capsule 5 11/06/2024 ActiveStart: 93-17-5230slgo 1 capsule by mouth every twenty-four hours in the morningviloxazine (QELBREE) 200 mg capsule,extended release 24hr Indications: Attention deficit hyperactivity disorder (ADHD), predominantly inattentive type Take 200 mg by mouth in the morning. 90 capsule 1 08/01/2024 ActiveStart: 64-33-0291hkwk 1 capsule by mouth once dailyViloxazine (Qelbree) 200 mg capsule,extended release 24hr Active 200 MG PO Daily July 29, 2024 12:00am Start: 07-17-2024 End: 54-56-9206sbdp 1 capsule by mouth every twenty-four hours in the morning viloxazine (QELBREE) 200 mg capsule,extended release 24hr Indications: Attention deficit hyperactivity disorder (ADHD), predominantly inattentive type Take 200 mg by mouth in the morning. 30 capsule 07/17/2024 07/31/2024 Discontinued (Reorder)Start: 04-11-2024 End: 16-02-9871qctx 1 capsule by mouth once daily at bedtimeViloxazine (Qelbree) 200 mg capsule,extended release 24hr Discontinued 200 MG PO Daily at bedtime Al fraire 2024 1:00am May 17, 2024 12:13pmStart: 04-11-2024 End: 97-92-1352diol 1 capsule by mouth once daily at bedtimeViloxazine (Qelbree) 200 mg capsule,extended release 24hr Discontinued 200 MG PO Daily at bedtime Al fraire 2024 12:00am May 17, 2024 11:13amStart: 33-11-9936riah 1 capsule by mouth every twenty-four hours in the morningviloxazine (QELBREE) 200 mg capsule,extended release 24hr Indications: Attention deficit hyperactivity disorder (ADHD), predominantly inattentive type Take 200 mg by mouth in the morning. 30 capsule 1 01/03/2024 ActiveViloxazine HCl ER (Qelbree) 200 MG capsule sustained-release 24 hr (20 sources)Start: 81-48-5768pijd 1 capsule by mouth in the morning, then take 1 capsule by mouth every twenty-four hoursViloxazine HCl ER (Qelbree) 200 MG capsule sustained-release 24 hr Take 200 mg by mouth in the morning. 07/17/2024 Active End: 48-98-2317roid 1 capsule by mouth at bedtime, then [...] (20 sources)Central Nervous System StimulantStart: 11-22-2023 End: 53-87-1075giwm 1 capsule by mouth once daily in the morning, then take 1 capsule by mouth every twenty-four hoursDextroamphetamine-Amphetamine (Adderall Xr) 30 mg capsule,extended release 24hr Discontinued 30 MG PO Every morning April 11, 2024 1:00am July 29, 2024 11:23amStart: 09-18-2023 End: 83-22-0356torm 1 tablet by mouth twice dailyDextroamphetamine-Amphetamine 30 mg tablet Discontinued 30 MG PO Twice daily 60 30 October 25, 2023 April 11, 2024 11:03amStart: 06-21-2023 End: 79-26-7642zkxc 1 tablet by mouth twice dailyDextroamphetamine-Amphetamine 30 mg tablet Discontinued 30 MG PO Twice daily June 21, 2023 12:00am June 21, 2023 3:09pmStart: 10-57-2374ydwl 1 tablet by mouth every twelve hours Adderall 30 MG 1 tablet Orally Twice a day for 30 days Apr, ActiveStart: 01-02-2023 End: 46-51-5589afkf 1 tablet by mouth once dailyDextroamphetamine-Amphetamine (Adderall) 20 mg tablet Discontinued 20 MG PO Daily April 1151:00am May 17, 2024 12:12pmibuprofen 800 mg oral tablet (9 sources)Nonsteroidal Anti-inflammatory DrugStart: 04-25-2022 End: 12-55-9835fmdc 1 tablet by mouth three times dailyibuprofen (MOTRIN) 800 mg tablet Indications: Acute exacerbation of chronic low back pain , DDD (deg enerative disc disease), lumbar TAKE 1 TABLET BY MOUTH THREE TIMES A DAY 90 tablet 04/25/2022 01/18/2024 Discontinued (Therapy completed)iopamidol (ISOVUE- 370) 76 % injection 75 mL (1 source)Start: 01-03-2022 End: 80-70-3864igkbkxogf (ISOVUE-370) 76 % injection 75 mL1 ml ketorolac tromethamine 30 mg/ml cartridge (1 source)Nonsteroidal Anti-inflammatory Drug, Cyclooxygenase InhibitorStart: 10-11-2022 End: 83-30-3894mbjubwbni (TORADOL) injection 30 mgMONOJECT LUER-LOCK TIP 3 mL syringe (1 source)Start: 05-09-2024 End: 47-78-3778NGKMORKG LUER-LOCK TIP 3 mL syringe 05/09/2024 07/31/2024 Discontinued (Error)1 ml morphine sulfate 4 mg/ml cartridge (1 source)Opioid AgonistStart: 08-19-2021 End: 18-38-9008bhpkhynm (PF) injection 10 mgStart: 08-19-2021 End: 95-92-0286aqupswir (PF) injection 10 mg Problems Active Problems Problem ClassificationProblemDateDocumented DateEpisodic/ChronicAcquired foot deformities (20 sources)Acquired left hallux valgus; Translations: [Hallux valgus (acquired), left foot]Onset: 101070-12-3290WzbsuvvDjisbhod foot deformities (8 sources)Tailor's bunion of left foot; Translations: [Bunionette of left foot] 15-65-5528OyfsedjoCvnmahot foot deformities (4 sources)Acquired deformity of toe of right foot; Translations: [Acquired deformities of toe(s), unspecified, right foot]07-59-2930KpipigziZzeuytq disorders (9 sources)Anxiety; Translations: [Anxiety disorder, unspecified]Onset: 960015-57-5421ZuznobxSaqovyerr-eutqiil, conduct, and disruptive behavior disorders (16 sources)Adult attention deficit hyperactivity disorder ; Translations: [Attention-deficit hyperactivity disorder, unspecified type]55-19-3368Ubxqcux Attention-deficit, conduct, and disruptive behavior disorders (14 sources)Attention-deficit hyperactivity disorder, unspecified type; Translations: [Attention deficit disorder with hyperactivity]ChronicAttention- deficit, conduct, and disruptive behavior disorders (7 sources)Attention deficit hyperactivity disorder, predominantly inattentive type; Translations: [Attention-deficit hyperactivity disorder, predominantly inattentive type]Onset: 208408-17-3512LpkqceqRwxygwnzw-fhwyonh, conduct, and disruptive behavior disorders (1 source)Attention-deficit hyperactivity disorder, predominantly inattentive type; Translations: [Attention-deficit hyperactivity disorder, predominantly inattentive type]Onset: 34-87-1041SxpdezrOzralyayj hypertension (8 sources)Benign essential hypertension; Translations: [Essential (primary) hypertension]Onset: 775538-43-8239SkvespzEuqteqfubfjod symptoms and ill- defined conditions (1 source)Incontinence without sensory awareness; Translations: [Incontinence without sensory awareness]00-39-1381ZuallovUfwlegbc; including migraine (20 sources)Migraine without aura, not refractory ; Translations: [Chronic migraine without aura, not intractable, without status migrainosus]Onset: 973145-52-8453IflniknSmwdwvvdhgqtp and screening for infectious disease (1 source)Encounter for screening for human papillomavirus (HPV); Translations: [ENC SCREENING HUMAN PAPILLOMAVIRUS]Onset: 76-89-4275GikhlaptDosauppcx disorders (20 sources)Menorrhagia; Translations: [Excessive and frequent menstruation with regular cycle]Onset: 277229-71-3059CdtokzvYjahnmqcvkzgg mental health disorders (15 sources)Psychophysiologic insomnia; Translations: [Psychophysiologic insomnia]Onset: 108257-66-1205DviaagvFcemqrp (1 source)Candidiasis of skin and nailEpisodicNutritional deficiencies (3 sources)Vitamin D deficiency; Translations: [Vitamin D deficiency, unspecified]Onset: 647552-76-7606HrlhhkkWsjve acquired deformities (4 sources)Equinus contracture of the ankle; Translations: [Contracture, left ankle]93-24-9648McjswvoXwvjn acquired deformities (4 sources)Deformity of metatarsal; Translations: [Unspecified acquired deformity of left lower leg]90-01-5756PoyllrwjTbemc acquired deformities (2 sources)Deformity of metatarsal; Translations: [Unspecified acquired deformity of right lower leg]10-22-5803WguxgrrfGmilb aftercare (2 sources)Surgical follow-up; Translations: [Encounter for follow-up examination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 Total22.2 ng/mLEast [place] Regional HospitalComment on above:<20 ng/mL Vit D qmuuslnzr19-<30 ng/mL Vit D ixvxhpretwow07-676 ng/mL Vit D sufficient>100 ng/mL Potential ToxicityC-Peptide2.3 ng/mL1.1-4.4FSt. Vincent Hospital Comment on above:C-Peptide reference interval is for fasting patients. Dehydroepiandrosterone Aogiuwi281.0 ug/dL57.3-279.2FSt. Vincent HospitalFree Cortisol, Dialysis, LCMS0.385 ug/dL.[facility] Comment on above:These tests were developed and their performancecharacteristics determined by [employer]. They have not beencleared or approved by the Food and Drug Administration.Reference Range:8 AM 0.10 - 1.204 PM 0.042 - 0.872Performed at: [facility] [address] [id number] Dir martín: Kal Archibald MD, Phone: [phone] Triiodothyronine2.38 pg/mL 2.18-3.98[facility] [place] [facility] HospitalReverse Triiodothyronine (T3)23.1 ng/dL9.2-24.1FSt. Vincent HospitalComment on above:This test was developed and its performance characteristicsdetermined by [employer] [email or web address]. It has not been cleared orapproved by the Food and Drug Administration.Performed at: [facility] [address] [place], [place] [id number] Director: Katelynn Macdonald MD, Phone: [phone] Hormone Binding Fnmbvhcf869.0 nmol/L24.6-122.0 [facility] [place] [facility] HospitalComment on above:Performed at: [facility] [employer] [id number] Director: Theron Roblero PhD, Phone: [phone] Level17 ng/dL4-50[facility] Plasma serotonin measurement (mass/volume)on 43-36-9808Slmqvykik (P) [Mass/Vol] Plasma serotonin measurement (mass/volume)31-207[facility] [place] [facility] HospitalComment on above:This test was developed and its performance characteristicsdetermined by [employer]. It has not been cleared orapproved by the Food and Drug Administration.Performed at: [facility] [id number] Director: Katelynn Macdonald MD, Phone: [phone] estrone measurementon 48-24-7794I3 [Mass/Vol]Serum estrone measurement.[facility] [place] [facility] HospitalComment on above:Range Adult (Premenopausal) 27 - 231 Menstrual Cycle (1-10 days) 19 - 149 Menstrual Cycle (11-20 days) 32 - 176 Menstrual Cycle (21-30 days) 37 - 200 Adult (Postmenopausal) 0 - 125Performed at: [facility] inContact[address] [id number] Director: Katelynn Macdonald MD, Phone: [phone] or plasma estradiol (E2) measurement (mass/volume)on 83-91-5848H0 [Mass/Vol] Serum or plasma estradiol (E2) measurement (mass/volume).[facility] [place] [facility] HospitalComment on above:Adult Female Range Follicular phase 12.5 - 166.0 Ovulation phase 85.8 - 498.0 Luteal phase 43.8 - 211.0 Postmenopausal <6.0 - 54.7 1st trimester 215.0 - >4300.0Roche ECLIA methodologySerum or plasma insulin measurement (units/volume)on 03-66-4051Aicxogg QnSerum or plasma insulin measurement (units/volume)2.6-24.9[facility] Comment on above:Performed at: [facility] inContact[address] [id number] Director: Theron Roblero PhD, Phone: [phone] or plasma progesterone measurement (mass/volume)on 32-50-1009Gixgqujvzhoy [Mass/Vol]Serum or plasma progesterone measurement (mass/volume).[facility] HospitalComment on above:Follicular phase 0.1 - 0.9 Luteal phase 1.8 - 23.9 Ovulation phase 0.1 - 12.0 First trimester 11.0 - 44.3 Second trimester 25.4 - 83.3 Third trimester 58.7 - 214.0 Postmenopausal 0.0 - 0.1Performed at: [facility] [address] [id number] Director: Theron Manley, Phone: [phone] Ab Qnon 21-69-7192Yvrernq Peroxidase Antibodies<9 [IU]/mL0-34[facility] [place] [facility] HospitalThyroglobulin Ab Qnon 47-85-1882Wrcq-Thyroglobulin Antibody1.0 [IU]/mLAbnormal0.0-0.9[facility] [place] [facility] HospitalComment on above:Thyroglobulin Antibody measured by Sarah Other MachineMethodologyIt should be noted that the presence of thyroglobulinantibodies may not be pathogenic nor diagnostic, especiallyat very low levels. The assay postal transportation clerk has found thatfour percent of individuals without evidence of thyroiddisease or autoimmunity will have positive TgAb levels upto 4 IU/mL.Performed at: [facility] [address] [id number] Director: Theron Roblero PhD, Phone: [phone] [Mass/volume] in Serum or Plasmaon 90-32-7393Zmyuvrgbtxrrv [Mass/Vol] Thyroglobulin [Mass/volume] in Serum or Plasma.[facility] Comment on above:This test was developed and its performance characteristicsdetermined by [employer]. It has not been cleared or approvedby [...] is 2.0 ng/mL.Performed at: [facility] [address] [place], [place] [id number] Director: Kal Archibald MD, Phone: [phone] TOMOSYNTHESIS DIAGNOSTIC BIon 08-00[place]46[place] [address] Mammography Report Signed Patient: KARUNA DUMONT MR#: [id number] : 1980 Acct:[id number] Age/Sex: 43 / F ADM Date: 03/13/24 Loc: MAMMO Attending Dr: Sanjeev Lopez D.O. Ordering Physician: Sanjeev Lopez D.O. Results: Date of Service: 03/13/24 Follow Up: Procedure(s): MM tomosynthesis diagnostic BI Accession Number(s): [id number] cc: Johnathon Winter M.D.; Sanjeev Lopez D.O. Patient Name: KARUNA DUMONT MR#: [id number] : 1980 Exam Date: 03/13/2024 Ordering Doctor: [...] stomach cancer at age 67. LOCATION: [facility] BREAST COMPOSITION: There are scattered [...] Signed By: 03/13/24 1459 DD/ 1458 TD/TT: Floating Derrick Operator:TBHRadiology, Radiologist, - 03/13/2024 [place] [address] Mammography Report Signed Patient: KARUNA DUMONT MR#: [id number] : 1980 Acct:[id number] Age/Sex: 43 / F ADM Date: 03/13/24 Loc: MAMMO Attending Dr: Sanjeev Lopez D.O. Ordering Physician: Sanjeev Lopez D.O. Results: Date of Service: 03/13/24 Follow Up: Procedure(s): MM tomosynthesis diagnostic BI Accession Number(s): [id number] cc: Johnathon Winter M.D.; Sanjeev Lopez D.O. Patient Name: KARUNA DUMONT MR#: [id number] : 1980 Exam Date: 03/13/2024 Ordering Doctor: [...] stomach cancer at age 67. LOCATION: [facility] BREAST COMPOSITION: There are scattered [...] Signed By: 03/13/24 1459 DD/ 1458 TD/TT: Floating Derrick Operator: SCOOTER Johns InformationOrdered By: Radiologist Radiology on 11-91-8534[place] [employer] Work Phone: No Panel Informationon 86-28-7368Pyaoauyyx Study observation (narrative)SCOOTER Amin BREAST BI LIMITEDon 63-94-7732[place] [address] Ultrasound Report Signed Patient: KARUNA DUMONT MR#: [id number] : 1980 Acct:[id number] Age/Sex: 43 / F ADM Date: 03/13/24 Loc: MAMMO Attending Dr: Sanjeev Lopez D.O. Ordering Physician: Sanjeev Lopez D.O. Date of Service: 03/13/24 Procedure(s): US breast BI limited Accession Number(s): [id number] cc: Johnathon Winter M.D.; Jessica,Sanjeev D.O. Patient Name: KARUNA DUMONT MR#: [id number] : 1980 Exam Date: 03/13/2024 Ordering Doctor: DR Sanjeev Lopez . RADIOLOGY REPORT PROCEDURE: MM TOMOSYNTHESIS DIAGNOSTIC BI, 03/13/2024, 13:30 US BREAST BI LIMITED, 03/13/2024, 14:10 COMPARISON: MM POST BIOPSY LT, 05/23/2023. MM TOMOSYNTHESIS DIAGNOSTIC LT, 11/15/2023. INDICATIONS: Breast Pain Calculator Name [facility] Breast Cancer Risk Assessment Tool 5 Year Breast Cancer Risk 0.90% Lifetime Breast Cancer Risk 10.90% Personal Breast Cancer No Personal Ovarian Cancer No Treatments None Family Cancers Grandmother-maternal with stomach cancer at age 65. LOCATION: [facility] BREAST COMPOSITION: There are scattered [...] Signed By: 03/13/24 1459 DD/ 1458 TD/TT: Floating Derrick Operator:TBHRadiology, RadiologistMD - 03/13/2024 [place] [address] Ultrasound Report Signed Patient: KARUNA DUMONT MR#: [id number] : 1980 Acct:[id number] Age/Sex: 43 / F ADM Date: 03/13/24 Loc: MAMMO Attending Dr: Sanjeev Lopez D.O. Ordering Physician: Sanjeev Lopez D.O. Date of Service: 03/13/24 Procedure(s): US breast BI limited Accession Number(s): [id number] cc: Johnathon Winter M.D.; Sanjeev Lopez D.O. Patient Name: KARUNA DUMONT MR#: [id number] : 1980 Exam Date: 03/13/2024 Ordering Doctor: [...] stomach cancer at age 67. LOCATION: [facility] BREAST COMPOSITION: There are scattered [...] M.D. Signed By: 03/13/249 DD/ 57 TD/TT: Floating Derrick Operator: SCOOTER [facility] METABOLIC PANLon 58-53-7020Jccsi gap [Moles/Vol]5 mmol/L Normal5-15ProLakehealth [facility] HospitalComment on above:Performed By: #### CBC, BMP #### [facility] ([id number]) [address] [place], [place] [address]Chfhxhd [Mass/Vol]8.1 mg/dLLow8.5-10.5PMercy Health West Hospital HospitalComment on above:Performed By: #### CBC, BMP #### [facility] ([id number]) [address] [place], [place] [address]Vacldzna [Moles/Vol]107 mmol/SLwcmkk88-103GrmWcgjyd [place] HospitalComment on above:Performed By: #### CBC, BMP #### [facility] ([id number]) [address] [place], [place] [address]ME3 [Moles/Vol]26 mmol/ZRjcjwn54-38WkwZlyytc [facility] Comment on above:Performed By: #### CBC, BMP #### [facility] ([id number]) [address] [place], [place] [address]Affbipyhka [Mass/Vol]0.89 mg/dLNormal0.40-1.00[facility] HospitalComment on above:Result Comment: METHOD TRACEABLE TO IDMS STANDARD Performed By: #### CBC, BMP #### [facility] ([id number]) [address] [facility], [place] [address]OWD/1.73 sq M.predicted among non-blacks MDRD (S/P/Bld) [Vol rate/Area]83 mL/min/{1.73_m2}Normal>59ProLakehealth Tripoint Medical Center HospitalComment on above: Result Comment: Reported eGFR is based on the CKD-EPI 2020 equation that does not use a race coefficient.Performed By: #### CBC, BMP #### [facility] ([id number]) [address] [place], [place] [address]Qthtmzg [Mass/Vol]114 mg/vPYbfb23-67JoeHqldpk [facility] Comment on above:Performed By: #### CBC, BMP #### [facility] ([id number]) [address] [place] [address]Jythhqnuj [Moles/Vol]4.1 mmol/LNormal3.5-5.0ProLakehealth Tripoint Medical Center HospitalComment on above:Performed By: #### CBC, BMP #### [facility] ([id number]) [address] [place] [address]Xdumyo [Moles/Vol]138 mmol/TPyrevb991-462PioPsyyyj [place] HospitalComment on above:Performed By: #### CBC, BMP #### [facility] ([id number]) [address] [place] [address]Wufz nitrogen [Mass/Vol]15 mg/dLNormal5-23ProLakehealth Tri[facility] Center HospitalComment on above:Performed By: #### CBC, BMP #### [facility] ([id number]) [address] [place] [address]UTYWCHYE BLOOD COUNTon 53-08-1038Pyzvinmehqt distribution width (RBC) [Ratio]14.5 %Sfwrbr21.5-15.0[facility] HospitalComment on above:Performed By: #### CBC, BMP #### [facility] ([id number]) [address] [place] [address]Qrynqcimmy (Bld) [Volume fraction]30.0 %Vvs06-79MieIzacsc [place] HospitalComment on above:Performed By: #### CBC, BMP #### [facility] ([id number]) [address] [place] [address]Phtyshyciq (Bld) [Mass/Vol]9.9 g/dLLow11.7-15.5PMercy Health West Hospital HospitalComment on above:Performed By: #### CBC, BMP #### [facility] ([id number]) [address] [place], [place] [address]NEY (RBC) [Entitic mass]27.8 eqZipdbn88-39XatVdojcd [facility] HospitalComment on above:Performed By: #### CBC, BMP #### [facility] ([id number]) [address] [place], [place] [address]MEIU (RBC) [Mass/Vol]33.2 g/lQVkvvar51-86YrgErckkt [facility] HospitalComment on above:Performed By: #### CBC, BMP #### [facility] ([id number]) [address] [place] [address]AXC (RBC) [Entitic vol]84 vWGzflba14-833RlkTbpdhh [place] HospitalComment on above:Performed By: #### CBC, BMP #### [facility] ([id number]) [address] [place] [address]Anunaxzk mean volume (Bld) [Entitic vol]7.7 fLNormal7-12 ProMatmore community hospitala [facility] HospitalComment on above:Performed By: #### CBC, BMP #### [facility] ([id number]) [address] [place] [address]Ngxydmvzc (Bld) [#/Vol]267 10*3/wCGpvyrl031-073FpzMczbtl [facility] HospitalComment on above:Performed By: #### CBC, BMP #### [facility] ([id number]) [address] [place] [address]XWM COUNT3.58 X10E12/LLow3.80-5.20[facility] Hospital Comment on above:Performed By: #### CBC, BMP #### [facility] ([id number]) [address] [place] [address]NTC (Bld) [#/Vol]15.6 10*3/uLHigh4.0-11.0ProPaulding County Hospitalca [facility] HospitalComment on above:Performed By: #### CBC, BMP #### [facility] ([id number]) [address] [place], [place] [address]Coding Summaryon 48-07-8867Mfgmsg SummaryMLBase 64 RdlzajxxRLi0jTl+PGhlYWQ+MX5ISRCtL60nqEDuoH9eE5FNACoPGofnZJVSBFgCPtNpglFwRK7olEPb ZXJu [file] Y29 (more content not included)...[facility] HospitalCoding SummaryHTMLBase 64 SdtwqmuwKFi5mLr+PGhlYWQ+HW9TVETxC60qvELxvH6dK8MWEMwCEqomDOMJZMmXBkJyvgZaWL6wuIFs ZXJu [file] Y29 (more content not included)...[facility] NorthConsent Formson 82-38-8862Kzrktgz Dvwig135.64.209.187.7083757403830404590138T07#1.00OTGTIFF [facility].Auto Diff 1on 38-45-3139Agle Amite %6 %Normal-12[facility] HospitalComment on above:Performed By: #### [id number], 0581821, 1385982743, 6646549025, 9897843, 27829369, 8272409313 ####[facility] (DEFAULT)[address] [place] [address]Kory Abs#0.0 o53Ryjaqq8.0-0.2Mmansfield hospital HospitalComment on above:Performed By: #### 5290712810, 0967888, 6460512576, 4528048320, 0502119, 62415811, 8801776104 ####[facility] (DEFAULT)[address] [place] [address] 78981Qlywwzsvc/100 WBC (Bld)0.7 %Normal0.2-2.0 Jennifer HospitalComment on above:Performed By: #### 7775163319, 6939645, 6276480729, 3784478401, 1206612, 28178472, 7242909962 ####[facility] (DEFAULT)[address] [place] [address] 599[address]Rjm Abs#0.1 i71Wigxbp1.0-0.4 [facility] HospitalComment on above:Performed By: #### 7369697935, 1592340, 4465575761, 0728989700, 8626791, 33989179, 6955945412 ####[facility] (DEFAULT)[address] [place] [address] 48274Wmhedzqlguv/100 WBC (Bld)1.3 % Normal0.9-4.0[facility] HospitalComment on above:Performed By: #### 1616555053, 7684303, 2118204613, 2694496804, 7813640, 24254142, 3151387557 ####[facility] (DEFAULT)[address] [place] [address] 05245Ppgvn Abs#1.6 a68Ckbyqf 1.3-2.9[facility] HospitalComment on above:Performed By: #### 3810485721, 8484323, 2228436841, 1017503497, 7920412, 30107619, 5604048925 ####[facility] (DEFAULT)[address] [place] [address] 545[address]Wzvtpwjlqzt/100 WBC (Bld)25 % Qowyfs68-93Upcnhxvy HospitalComment on above:Performed By: #### 7726105577, 2119125, 2194904735, 1732643792, 6218870, 69468070, 3911215013 ####[facility] (DEFAULT)[address] [place] [address] 26641Ypqi Abs#0.4 u38Thibau 0.0-0.8[facility] HospitalComment on above:Performed By: #### 6385340153, 8908519, 7725929652, 3500596438, 1988771, 37589345, 0961915862 ####[facility] (DEFAULT)[address] [place] [address] 25572Lgty Abs#4.2 i03Ztmxlm5.5-9.2 [facility] HospitalComment on above:Performed By: #### 8145160226, 7963940, 0573874408, 4500350316, 0582721, 18308565, 3185926673 ####[facility] (DEFAULT)[address] [place] [address] 29091Mgytivgreic/100 WBC (Bld)67 % Hudkxd27-41Vvryawjs HospitalComment on above:Performed By: #### 2505226419, 8951775, 6265061254, 6523720573, 9397904, 37449428, 8247622360 ####[facility] (DEFAULT)[address] [place] [address] 94[address]Dionhjnoa Auto (Bld) [#/Vol]on 80-52-4005Itwtgokgv (Bld) [#/Vol]Automated basophil count0.0-0.2 [facility] HospitalBasophils/100 WBC Auto (Bld)on 01-14-2024 Basophils/100 WBC (Bld)Automated basophil %0.2-2.0[facility] HospitalCB w/ Auto Diffon 16-19-9080Dxotbhecbtt distribution width (RBC) [Ratio] 14.5 %Ettjne98.5-15.0[facility] HospitalComment on above:Performed By: #### 1418238896, 0954912, 2174081916, 4547057730, 4102090, 13651553, 7936518811 ####[facility] (DEFAULT)[address] [place] [address] 39800Ilhcmlrhlf (Bld) [Volume fraction]37.9 %Aniuel52.7-40.4[facility] HospitalComment on above: Performed By: #### 8358177828, 0167098, 3097872103, 2759631106, 6301366, 40320695, 7774654539 ####[facility] (DEFAULT)[address] [place] [address] 82824Wwpnzikukw (Bld) [Mass/Vol]12.3 g/dEQvpbnw14.3-15.9[facility] HospitalComment on above:Performed By: #### [id number], 8055200, 0246851599, 6916991793, 3635785, 65502134, 9540185284 ####[facility] (DEFAULT)[address] [place], [place] [address]Man Diff?AutoInvalid Interpretation Code [facility] HospitalComment on above:Performed By: #### 7064758535, 1447443, 2753617794, 0075029744, 5900903, 01971150, 4777726568 ####[facility] (DEFAULT)[address] [place] [address] (RBC) [Entitic mass]27 pg Gaajec84-20Mwdismop HospitalComment on above:Performed By: #### 1481644262, 0764307, 2854309336, 2486339808, 9094548, 76750316, 3015280630 ####[facility] (DEFAULT)[address] [place], [place] [address]HC (RBC) [Mass/Vol]33 g/iYMzllrb36-86Luzvhytx HospitalComment on above:Performed By: #### 3922729840, 3351426, 5778916200, 2589397915, 4002636, 89100675, 3752702303 ####[facility] (DEFAULT)[address] [place], [place] [address]V (RBC) [Entitic vol] 84 hRSflmgr63-417Yqfryist HospitalComment on above:Performed By: #### 4175452654, 1758202, 7924343017, 1200095174, 6611345, 63728429, 8199901736 ####[facility] (DEFAULT)[address] [place], [place] [address]Platelet 270 m31Staxzc031-314Xffpgcsw HospitalComment on above:Performed By: #### 1089958731, 4130166, 5710319579, 2585316732, 9859003, 50704128, 6388748097 ####[facility] (DEFAULT)[address] [place] [address] 627[address]Skmbuklb mean volume (Bld) [Entitic vol]7.4 fLNormal6.3-10.2Magrdetwiler memorial hospital HospitalComment on above:Performed By: #### 9566871558, 2663735, 2664465939, 2984783177, 0661980, 02602394, 4321875121 ####[facility] (DEFAULT)[address] [place] [address] 19892XPZ8.53 q84Mtjznj3.70-5.30[facility] HospitalComment on above: Performed By: #### 3180253565, 4835534, 8549204587, 4877640864, 2879546, 43835617, 0315875932 ####[facility] (DEFAULT)[address] [place] [address] 50941RIG3.3 d76Ueejla4.5-10.5[facility] HospitalComment on above: Performed By: #### 7457994880, 6298710, 2014667425, 8992701216, 8756239, 70778433, 8930503806 ####[facility] (DEFAULT)[address] [place] [address] 68323CHT Standardon 36-78-7938Ldzskargoc ChemNormalPrem[facility] HospitalComment on above:Performed By: #### 7094785011, 9423046, 1234271222, 9717606774, 9029611, 68305875, 7859982382 ####[facility] (DEFAULT)[address] [place] [address] 42260pXSP Non AA>60Invalid Interpretation Code [facility] HospitalComment on above:Performed By: #### 2063012924, 7584777, 1756339937, 7754867092, 6625512, 29821791, 9922771124 ####[facility] (DEFAULT)[address] [place] [address] 81913yFNY AA>60Invalid Interpretation CodePremier Health [facility] Valley Hospital HospitalComment on above:Performed By: #### 1296569946, 8938504, 3019089426, 3354716085, 5264625, 82979361, 4397765063 ####[facility] (DEFAULT)[address] [place] [address] 97027Uplcqfw [Mass/Vol]3.6 g/dLNormal 3.5-5.0[facility] HospitalComment on above:Performed By: #### 7991787059, 7790965, 8072942761, 5845577139, 4405302, 93424035, 0043432465 ####[facility] (DEFAULT)[address] [place] [address] 45657Vnqsqgk/Globulin [Mass ratio]1.2 {ratio}Low1.4-2.6[facility] HospitalComment on above:Performed By: #### 6126928502, 4141842, 0415848765, 6892231058, 6091217, 76085210, 5600882983 ####[facility] (DEFAULT)[address] [place] [address] 16535Uhv Phos73 IU/MAteljm33-45Vfdkiwsi HospitalComment on above:Performed By: #### 6478275874, 7362326, 6232598351, 8134968873, 0612669, 89648298, 7947385950 ####[facility] (DEFAULT)[address] [place] [address] 91604EWR [Catalytic activity/Vol]16.0 U/ZNslwof54.0-54.0[facility] HospitalComment on above:Performed By: #### 4881609187, 9485444, 8284153885, 8543007514, 0434555, 31151314, 8992802258 ####[facility] (DEFAULT)[address] [place] [address] 51136Lqqte gap [Moles/Vol]6.9 mmol/LNormal5.0-19.0[facility] HospitalComment on above:Performed By: #### 9527224672, 6526613, 8790011686, 7485832175, 0466873, 24883737, 2301322416 ####[facility] (DEFAULT)[address] [place] [address] 08307EUA [Catalytic activity/Vol]19 U/EJzeufx53-75Wbvmfhug Hospital Comment on above:Performed By: #### 8531953711, 4792854, 1274356822, [id number], 5111709, [id number], [id number] ####[facility] (DEFAULT)[address] [place] [address] 10935Mbrp Total0.2 mg/dLLow0.3-1.2M[facility] Comment on above:Performed By: #### [id number], [id number], [id number], [id number], 8703078, 54560416, [id number] ####[facility] (DEFAULT)[address] [place] [address] 03251Zgudoql [Mass/Vol]8.4 mg/dLLow8.9-10.3M[facility] NorthComment on above:Performed By: #### [id number], [id number], [id number], [id number], 2249208, 69486097, [id number] ####[facility] (DEFAULT)[address] [place] [address] 05689Bowjuvvu [Moles/Vol]108 mmol/VUfhrkk269-[address] [facility] HospitalComment on above:Performed By: #### [id number], [id number], [id number], [id number], 2199611, 53160171, [id number] ####[facility] (DEFAULT)[address] [place] [address] [id number] [Moles/Vol]24 mmol/LNormal 21-32[facility] HospitalComment on above:Performed By: #### [id number], 7169883, [id number], [id number], 4383275, 04025892, [id number] ####[facility] (DEFAULT)[address] [place] [address] 28399Kyosnkvuqm [Mass/Vol]0.78 mg/dL Normal0.60-1.30[facility] HospitalComment on above:Performed By: #### [id number], 4871913, [id number], [id number], 6133789, 77285806, [id number] ####[facility] (DEFAULT)[address] [place] [address] 09038Ieqiuqdd (S) [Mass/Vol] 2.9 g/dLNormal1.5-4.3[facility] HospitalComment on above:Performed By: #### [id number], [id number], [id number], [id number], 3604444, 29031111, [id number] ####[facility] (DEFAULT)[address] [place] [address] 98130Jdfxqcu [Mass/Vol]88.0 mg/aTYoryfr76.0-118.0[facility] [facility] HospitalComment on above:Performed By: #### [id number], [id number], [id number], [id number], 2490312, 06226578, [id number] ####[facility] (DEFAULT)[address] [place] [address] 41142Yhocdbietf422 mOsm/LInvalid Interpretation CodePremier Health Miami [facility] Hospital HospitalComment on above:Performed By: #### [id number], [id number], [id number], [id number], 2824382, 29828488, [id number] ####[facility] (DEFAULT)[address] [place] [address] 14166Riqzjwxtm [Moles/Vol]3.9 mmol/LNormal3.6-5.1[facility] Hospital Comment on above:Performed By: #### [id number], 5423275, [id number], 0240611565, 4549617, 01131089, [id number] ####[facility] (DEFAULT)[address] [place] [address] 44641Lbfhnhy [Mass/Vol]6.5 g/dLNormal6.5-8.1[facility] HospitalComment on above:Performed By: #### [id number], 8932056, [id number], 8222730029, 8695607, 51487572, [id number] ####[facility] (DEFAULT)[address] [place] [address] 75852Ozvpia [Moles/Vol]135.0 mmol/SGbq969.0-144.[address] [facility] HospitalComment on above:Performed By: #### [id number], 3177553, 8925394142, 1691730518, 2391208, 88867472, [id number] ####[facility] (DEFAULT)[address] [place] [address] 40561Axkt nitrogen [Mass/Vol]15 mg/dL Normal8-[address] [place], [place] [address]Comment on above:Performed By: #### [id number], 1443071, 7919120068, 5320820874, 0597595, 67837277, [id number] ####[facility] (DEFAULT)[address] [place] [address] 19437Psyc nitrogen/Creatinine [Mass ratio]19.2 mg/mgHigh4.6-16.2MSelect Medical Specialty Hospital - Cincinnati NorthComment on above:Performed By: #### [id number], 4473936, 5526601957, 9162976740, 5272216, 51446006, [id number] ####[facility] (DEFAULT)[address] [place] [address] 85721BY Angiography Headon 29-30-6195Ae angiography head w/contrast/noncontrastEXAM: CT Angiography Head HISTORY: [...] Racheal Mathis DO 01/14/24 8:11 am Technologist: [facility] Head or Brain w/o Contraston 53-43-9771FW Head or Brain w/o ContrastEXAMINATION: CT Head [...] Clayton Wright MD 01/14/24 6:53 am Technologist: [facility] Clinical Summaryon 01-49-6742LJ Clinical [facility] - Emergency Department [address] [place], [place] [id number] ED Clinical Summary PERSON INFORMATION Name: KARUNA DUMONT Age: 43 Years Sex: FEMALE : 1980 MRN: Acct#: Visit Reason: Headache; HEADACHE Arrival: 01/14/2024 04:59:27 Discharge: 01/14/2024 09:46:00 LOS: 000 04:47 Check In: 01/14/2024 04:59:27 Checkout:01/14/2024 09:46:00 Address: [facility] [address] PCP: Johnathon Winter MD PROVIDER INFORMATION Provider [...] evaluation of headache. 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 Stated headache is [...] Use: Past Substance Use (more content not included)...[facility] NorthED Note - Physicianon 75-02-2646YJ Note - PhysicianPatient: KARUNA DUMONT Age: 43 [...] evaluation of headache. 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 Stated headache is [...] Plan Diagnosis Sudden onset of severe headache (FIT77-CP R51.9, Discharge, Medical) Headache, unspecified (BPE99-IX R51.9, Medical) Plan Condition: Improved, Stable. Disposition: Disch (more content not included)...[facility] NorthED Patient Summaryon 30-00-5253RZ Patient [facility] [address] [place] [address] PATIENT DISCHARGE INSTRUCTIONS Patient Information Name: KARUNA DUMONT Age: 43 Years Date of : 1980 Reason For Visit: Headache; HEADACHE Arrival Time: 01/14/2024 04:59:27 Primary Care Physician: Johnathon Winter MD Attending Physician: Santy Mckeon MD Comment: Visit Diagnosis: Diagnoses This Visit Headache (34048573) Headache, unspecified (R51.9) Sudden onset of severe headache (R51.9) [facility] is open Monday through Monday from [...] alcohol and/or drug addiction problems; contact the [facility] 24/10 Crisis Hotline -Text 8TZFI rr [phone]. If you received any narcotics, sedation, or [...] legal documents With: Address: When: Johnathon Winter [address] [place] [address], [place] [address] Business (1) Within 2 to 4 days [...] and treatment you received today in the [facility] were for an urgent problem and are not intended as complete care. It is important for you to follow up with a doctor, nurse practitioner, or physician?s timber management assistant for ongoing care. If your [...] so we can reach you if necessary. [facility] has provided you with a complete list of medications post discharge. Please inform your pouako kura kaupapa maori/provider of your visit and for further instruction [...] AT MIDDAY. amphetamine-dextroamphetamine (amphetamine-dextroa (more content not included)...[facility] NorthEosinophils/100 WBC Auto (Bld)on 01-14-2024 Eosinophils/100 WBC (Bld)Automated eosinophil %0.9-4.0[facility] HospitalErythrocyte distribution width Auto (RBC) [Ratio]on 35-54-7957Hlkdeakfswr distribution width (RBC) [Ratio]Erythrocyte distribution width [Ratio] by Automated count11.5-15.0[facility] HospitalEstimated glomerular filtration rate (GFR) non- American 86-68-1063MYQ/1.73 sq M.predicted among non-blacks MDRD (S/P/Bld) [Vol rate/Area]Estimated glomerular filtration rate (GFR) non- AmericanEast Ohio Regional HospitalExtra Greenon 84-74-4012Hlzr CollectedYesInvalid Interpretation [facility] SouthComment on above:Performed By: #### [id number], 6409441, [id number], [id number], 4387236, 33448094, [id number] ####[facility] (DEFAULT)[address] [place], [place] [address]Dacixefa Calc (S) [Mass/Vol]on 46-63-6249Mxxlraan (S) [Mass/Vol]Serum globulin measurement by calculation (mass/volume)1.5-4.3 [facility] HospitalHematocrit Auto (Bld) [Volume fraction]on 27-91-2451Hameqnukyr (Bld) [Volume fraction]Hematocrit [Volume Fraction] of Blood by Automated count33.7-40.4FSt. Vincent HospitalHemoglobin [Mass/volume] in Bloodon 42-34-9321Abviglukek (Bld) [Mass/Vol]Hemoglobin [Mass/volume] in Blood11.3-15.9[facility] [place] [facility] HospitalLaboratory - Chemistry and Chemistry - challengeon 92-86-4159Rjewdnk [Mass/Vol]3.6 g/dL 3.5-5.0[facility] [place] [facility] HospitalALP [Catalytic activity/Vol]73 U/L32-91 [facility] [place] [facility] HospitalALT [Catalytic activity/Vol]16.0 U/L14.0-54.0 [facility] [place] [facility] HospitalAST [Catalytic activity/Vol]19 U/L15-41 [facility] [place] [facility] HospitalBilirubin [Mass/Vol]0.2 mg/dLLow0.3-1.2 [facility] [place] [facility] HospitalCalcium [Mass/Vol]8.4 mg/dLLow8.9-10.3FSt. Vincent HospitalChloride [Moles/Vol]108 mmol/K819-129CkqggwsxnEast Ohio Regional HospitalCO2 [Moles/Vol]24 mmol/W16-55PrtjpnrcyEast Ohio Regional Hospital Creatinine [Mass/Vol]0.78 mg/dL0.60-1.30[facility] GFR/1.73 sq M.predicted MDRD (S/P/Bld) [Vol rate/Area]mL/min/{1.73_m2}[facility] HospitalGlucose [Mass/Vol]88.0 mg/dL74.0-118.0[facility] [place] [facility] HospitalPotassium [Moles/Vol]3.9 mmol/L3.6-5.1FSt. Vincent HospitalProtein [Mass/Vol]6.5 g/dL6.5-8.1FBluffton Hospitalodium [Moles/Vol]135.0 mmol/OOfq753.0-144.0[facility] [place] [facility] HospitalUrea nitrogen [Mass/Vol]15 mg/dL8-26[facility] [place] [facility] HospitalUrea nitrogen/Creatinine [Mass ratio]19.2 mg/mgHigh4.6-16.2FSt. Vincent HospitalLaboratory - Hematology and Cell countson 12-03-7983QDG (Bld) [Velocity]8 mm/h0-20[facility] [place] [facility] HospitalLeukocytes [#/volume] corrected for nucleated erythrocytes in Blood by Automated counon 29-40-4604RZZ corrected for nucl RBC Auto (Bld) [#/Vol]Leukocytes [#/volume] corrected for nucleated erythrocytes in Blood by Automated coun3.5-10.5FSt. Vincent Hospital Lymphocytes Auto (Bld) [#/Vol]on 58-02-1086Gdxwrfnkdac (Bld) [#/Vol]Lymphocytes [#/volume] in Blood by Automated count1.3-2.9[facility] Lymphocytes/100 WBC Auto (Bld)on 56-17-9684Hklghzditgt/100 WBC (Bld) Lymphocytes/100 leukocytes in Blood by Automated eelqo54-96VgbsdsvuuPremier HealthH Auto (RBC) [Entitic mass]on 10-53-6986TXM (RBC) [Entitic mass] MCH [Entitic mass] by Automated ricdq58-18PlmgtdhaaEast Ohio Regional HospitalMCHC Auto (RBC) [Mass/Vol]on 34-48-6826TBBS (RBC) [Mass/Vol]MCHC [Mass/volume] by Automated wmwef87-68KlmeicudwEast Ohio Regional HospitalMCV Auto (RBC) [Entitic vol]on 76-90-6054ISU (RBC) [Entitic vol]MCV [Entitic volume] by Automated count 81-100[facility] [place] [facility] HospitalMonocytes Auto (Bld) [#/Vol]on 01-14-2024 Monocytes (Bld) [#/Vol]Automated blood monocyte count0.0-0.8[facility] [place] [facility] HospitalMonocytes/100 WBC Auto (Bld)on 31-20-7214Ypolipncv/100 WBC (Bld) Automated monocyte %1-12[facility] [place] [facility] HospitalNeutrophils Auto (Bld) [#/Vol]on 99-03-8205Devnhuzzbym (Bld) [#/Vol]Neutrophils [#/volume] in Blood by Automated count1.5-9.2FSt. Vincent HospitalNeutrophils/100 WBC Auto (Bld)on 29-70-1642Hdjmntdjeda/100 WBC (Bld)Automated neutrophil %44-88[facility] HospitalNo Panel Informationon 57-88-2706Tdw Manual Differential Auto AutoEast Ohio Regional HospitalEosinophils # (Auto)0.1 x100.0-0.4 [facility] [place] [facility] HospitalOsmolality270 mOsm/LFSt. Vincent HospitalPlatelet mean volume Auto (Bld) [Entitic vol]on 86-83-9705Kuissrhs mean volume (Bld) [Entitic vol]Platelet mean volume [Entitic volume] in Blood by Automated count6.3-10.2FSt. Vincent HospitalPlatelets Auto (Bld) [#/Vol]on 80-82-7036Asxcetqqf (Bld) [#/Vol]Platelets [#/volume] in Blood by Automated -341IhmjgmbnmEast Ohio Regional HospitalRBC Auto (Bld) [#/Vol]on 22-77-8233KUZ (Bld) [#/Vol]Erythrocytes [#/volume] in Blood by Automated count 3.70-5.30[facility] - Andersoned Rateon 96-29-8138Zmp Rate8 mm/hr [place]025 Rivera StreetComment on above:Performed By: #### [id number], 2868551, [id number], 9519494813, 8227796, 47774958, [id number] ####[facility] (DEFAULT)[address] [place] [address] 23669Dpfkb or plasma albumin/globulin mass ratioon 86-44-8494Klptgua/Globulin [Mass ratio]Serum or plasma albumin/globulin mass ratioLow1.4-2.6FSt. Vincent Hospital Serum or plasma anion gap determinationon 23-40-3122Tuxjg gap [Moles/Vol]Serum or plasma anion gap determination5.0-19.0[facility] VITAMIN B12on 55-12-9185Acohyapsh (Vitamin B12) [Mass/Vol]303 pg/mL232 - 1245 pg/mLNOMS HealthcareComment on above:Performed at: [facility] LabTr[facility] [address] [place] [address] [id number] Android Ios Developer: Theron Roblero PhD, Phone: [phone] [facility] CBC WITH AUTO DIFFon 11-65-2494JSRNUMPLH ABSOLUTE AUTO0.1NOMS HealthcareBasophils/100 WBC (Bld)0.8 %0.2 - 2.0 %[facility] Eosinophils/100 WBC (Bld)1.5 %0.9 - 7.0 %[facility] St. JosephErythrocyte distribution width (RBC) [Ratio]13.7 %11.0 - 15.0 %[facility] St. JosephHematocrit (Bld) [Volume fraction]41.5 %36.0 - 48.0 %[facility]. JosephHemoglobin (Bld) [Mass/Vol]12.9 g/dL 12.0 - 16.0 g/dLMosaic Life Care at St. JosephIMMATURE GRANULOCYTES ABS AUTO0.02NORay [facility] Immature granulocytes/100 WBC (Bld)0.3 %0.0 - 0.5 %[facility]. JosephInterpretation and review of laboratory resultsAbnormalMosaic Life Care at St. JosephLYMPHOCYTES ABSOLUTE AUTO2.5NOMS [facility] Southeast OhioLymphocytes/100 WBC (Bld)34.0 %20.5 - 60.0 %Cox BransonH (RBC) [Entitic mass]27.4 pg26.7 - 34.0 pgCox BransonHC (RBC) [Mass/Vol]31.1 g/dL29.9 - 35.2 g/dLCox BransonV (RBC) [Entitic vol]88.3 fL 81.0 - 99.[address]LM[address] JosephMONOCYTES ABSOLUTE AUTO0.4NORay [facility] Hospital Monocytes/100 WBC (Bld)5.9 %1.7 - 12.0 %[facility]. JosephNEUTROPHILS ABSOLUTE AUTO 4.2NOMS [facility] Southeast OhioNeutrophils/100 WBC (Bld)57.5 %43.0 - 75.0 %[facility] Platelet mean volume (Bld) [Entitic vol]8.7 fLLow9.5 - 13.[address]LM[address] JosephTB EO #0.1NOMS [facility] Southeast OhioTB HJJ754QXEYRusk Rehabilitation Center RBC4.70NOMS [facility] Southeast OhioTB WBC 7.3NOMS [facility] OhioCLINISYNCNKansas City VA Medical CenterMLR HEMOGLOBIN A1Con 27-42-7585Jnvimgm [Mass/Vol]97 mg/dLMosaic Life Care at St. JosephHbA1c (Bld) [Mass fraction]5.0 %4.5 - 6.2 %[facility] St. JosephComment on above:ADA RECOMMENDED LIMIT 4.0 - 6.0 ADA THERAPEUTIC TARGET < 7.0 ACTION SUGGESTED > 7.0 CLINISYNCNOMS HealthcareHCG ( test) Ql (U)on 24-58-7678Aeqj Test, Ur NegativeNOFroedtert HospitalLon 31-31-9548ZEbiwrpyy: [id number] Received: 12/07/23 Status: NATHAN Burnsroberto Num: [id number] Spec Type: Surgical Subm Dr: Sanjeev Lopez Tissues: A Endometrium - Biopsy (EMBX) Procedures: HE/2, Gross/Micro L4 Age/ Patient Sex Location Account Attending Physician Karuna Dumont 43/F [place] [id number] Sanjeev Lopez SPEC NUM: [id number] RECD: 12/07/23 STATUS: NATHAN GUZMÁN NUM: [id number] GENEVA: 12/06/23- SUBM DR: Sanjeev Lopez ENTERED: 12/07/[address] [facility] [address]: Bert,Lab SPEC TYPE: Surgical DEPT: ROLDAN THOMPSON ENTERED BY: [id number] RECV BY: [id number] ORDERED: HE/2, Gross/Micro L4 ORDERED: HE/2, Gross/Micro [...] are performed supporting the above interpretation Specimen: [id number] Received: 12/07/23 Status: NATHAN Guzmán Num: [id number] Spec Type: Surgical Subm Dr: Sanjeev Lopez Tissues: A Endometrium - Biopsy (EMBX) Procedures: Cheyanne HERNANDEZ/Kwame L4 Patient: JuliaKaruna hart Radha [id number] (Continued) Specimen: [id number] Received: 12/07/23 (Continued) Signed (signature on file) Frida Kirby MD 12/12/23 2158 Specimen: [id number] Received: 12/07/23 Status: NATHAN Guzmán Num: [id number] Spec Type: Surgical Subm Dr: Sanjeev Lopez Tissues: A Endometrium - Biopsy (EMBX) Procedures: MELANIECheyanne Torres/Kwame L4 Patient: Karuna Dumont [id number] (Continued) Specimen: [id number] Received: 12/07/23 (Continued) CPT Codes 47531 Specimen: [id number] Received: 12/07/23 Status: NATHAN Guzmán Num: [id number] Spec Type: Surgical Subm Dr: Sanjeev Lopez Tissues: A Endometrium - Biopsy (EMBX) Procedures: HE/2, Gross/Micro L4 Patient: Karuna Dumont [id number] (Continued) Signed (signature on file) Elia-Blake Kirby MD 12/12/[address] [place] [address] Physician GroupALL DHEA SULFATEon 09-88-6734LOIB-SULFATE 40.8 ug/kTLcqlwngt19.3 - 279.2 ug/dLNOMS HealthcareMETRO SEX BINDING HORMONE (SHBG), TESTOSTERONE, FREE AND BIOAVAILABLEon 50-38-1425UPR HORM BINDING GLOB, SERUM60.9 nmol/L24.6 - 122.0 nmol/LNOMS HealthcareComment on above:Performed at: [facility] [employer] [id number] Android Ios Developer: Theron Roblero PhD, Phone: [phone] No Panel Informationon 11-71-9687Vtbymdpnnuoobf and review of laboratory results AbnormalNOMS HealthcareCLINISYNCNOMS HealthcareSRMCOH TESTOSTERONE FREE/TOT EQUILIBon 71-47-4493XZRW TESTOSTERONE(DIRECT)<0.20.0 - 4.2 pg/mLNOMS Healthcare Comment on above:Performed at: [facility] [employer] [id number] Android Ios Developer: Theron Roblero PhD, Phone: [phone] Performed at: [address] [id number] Android Ios Developer: Katelynn Macdonald MD, Phone: [phone] Testosterone [Mass/Vol]ng/dLAbnormal8 - 60 ng/dLNOMD HealthcareFree testosterone measurement by LC-MS/MSon 20-79-4352Gskerfluadqb Free [Mass/Vol]<0.2 pg/mL 0.0-4.2FSt. Vincent HospitalComment on above:Performed at: [facility] LabcoSt. Joseph's Wayne HospitalEkjmez93[address] [place], [place] [id number] Director: Theron Roblero PhD, Phone: [phone] at: [place] [address] [place], [place] [id number] Director: Katelynn Macdonald MD, Phone: [phone] Panel Informationon 69-07-1763Jrukawewemjfxbjsmdisrt Izgcngg53.8 ug/sPWjvtoxln40.3-279.2FBluffton Hospitalex Hormone Binding Qsxqytob41.9 nmol/L24.6-122.0[facility] [place] [facility] HospitalComment on above: Performed at: [facility] LabXangatiSusan Ville [id number] [place], [place] [id number] Director: Theron Roblero PhD, Phone: [phone] Level<3 ng/dL Abnormal8-60[facility] [place] Regional HospitalMM TOMOSYNTHESIS DIAGNOSTIC LTon 94-42-8917LstGl[place] [address] Mammography Report Signed Patient: KARUNA DUMONT MR#: [id number] : 1980 Acct:[id number] Age/Sex: 42 / F ADM Date: 11/15/23 Loc: MAMMO Attending Dr: Sanjeev Lopez D.O. Ordering Physician: Sanjeev Lopez D.O. Results: Date of Service: 11/15/23 Follow Up: Procedure(s): MM tomosynthesis diagnostic LT Accession Number(s): [id number] cc: Johnathon Winter M.D.; Sanjeev Lopez D.O. Patient Name: KARUNA DUMONT MR#: [id number] : 1980 Exam Date: 11/15/2023 Ordering Doctor: [...] stomach cancer at age 67. LOCATION: [facility] BREAST COMPOSITION: There are scattered [...] Signed By: 11/15/23 1126 DD/ 1125 TD/TT: Floating Derrick Operator:TBHRadiology, Radiologist, - 11/15/2023 [place] [address] Mammography Report Signed Patient: KARUNA DUMONT MR#: [id number] : 1980 Acct:[id number] Age/Sex: 42 / F ADM Date: 11/15/23 Loc: MAMMO Attending Dr: Sanjeev Lopez D.O. Ordering Physician: Sanjeev Lopez D.O. Results: Date of Service: 11/15/23 Follow Up: Procedure(s): MM tomosynthesis diagnostic LT Accession Number(s): [id number] cc: Johnathon Winter M.D.; Sanjeev Lopez D.O. Patient Name: KARUNA DUMONT MR#: [id number] : 1980 Exam Date: 11/15/2023 Ordering Doctor: [...] stomach cancer at age 67. LOCATION: [facility] BREAST COMPOSITION: There are scattered [...] Signed By: 11/15/23 1126 DD/ 1125 TD/TT: Floating Derrick Operator: [facility] JosephRadiology Study observation (narrative)[facility] TOMOSYNTHESIS DIAGNOSTIC LTOrdered By: Radiologist Radiology on 80-04-4101XCIFMosaic Life Care at St. Joseph Work Phone: aLL CBC WITH AUTO DIFFon 35-62-6073VSKOSPNZL ABSOLUTE AUTO0.1NOMS HealthcareBasophils/100 WBC (Bld)1.1 %0.2 - 2.0 %[facility] Eosinophils/100 WBC (Bld)2.2 %0.9 - 7.0 %[facility] St. JosephErythrocyte distribution width (RBC) [Ratio]14.5 %11.0 - 15.0 %[facility] St. JosephHematocrit (Bld) [Volume fraction]39.8 %36.0 - 48.0 %[facility]. JosephHemoglobin (Bld) [Mass/Vol]12.6 g/dL 12.0 - 16.0 g/dLMosaic Life Care at St. JosephIMMATURE GRANULOCYTES ABS AUTO0.01NOMS [facility] Immature granulocytes/100 WBC (Bld)0.2 %0.0 - 0.5 %[facility]. JosephLYMPHOCYTES ABSOLUTE AUTO1.8NOMS HealthcareLymphocytes/100 WBC (Bld)33.3 %20.5 - 60.0 %[facility]ansonH (RBC) [Entitic mass]27.9 pg26.7 - 34.0 pgNOExcelsior Springs Medical CenterHC (RBC) [Mass/Vol]31.7 g/dL29.9 - 35.2 g/dLCox BransonV (RBC) [Entitic vol]88.1 fL 81.0 - 99.[address] JosephMONOCYTES ABSOLUTE AUTO0.3[facility] Monocytes/100 WBC (Bld)5.4 %1.7 - 12.0 %[facility]. JosephNEUTROPHILS ABSOLUTE AUTO 3.2NOMS [facility] OhioNeutrophils/100 WBC (Bld)57.8 %43.0 - 75.0 %[facility] Platelet mean volume (Bld) [Entitic vol]9.7 fL9.5 - 13.[address] JosephTBH EO #0.1NOMS [facility] PED033ZKXTRusk Rehabilitation Center RBC4.52NORusk Rehabilitation Center WBC5.[address] [facility] JosephALL THYROID STIM HORMONEon 23-12-4606KRA Qn1.497 m[IU]/LNOMS [facility] OhioALL THYROXINE (T4) FREEon 92-52-1565Revq T4 [Mass/Vol]1.24 ng/dL0.76 - 1.46 ng/dLMosaic Life Care at St. JosephCLINISYNCNKansas City VA Medical CenterActivated partial thromboplastin time (aPTT) in platelet poor plasma by coagulation aon 10-25-2023 aPTT Coag (PPP) [Time]29.5 s22.3-36.2FSt. Vincent HospitalBasophils Auto (Bld) [#/Vol]on 19-85-4938Ivomjgagf (Bld) [#/Vol]0.1 10 3/uL0.0-0.1 [facility] [place] [facility] HospitalBasophils/100 WBC Auto (Bld)on 10-25-2023 Basophils/100 WBC (Bld)1.1 %0.2-2.0[facility] [place] [facility] HospitalCCF APTTon 79-22-2025sLZT Coag (Bld) [Time]29.5 sNOMS HealthcareEosinophils/100 WBC Auto (Bld)on 74-58-1708Fordwiwhzrj/100 WBC (Bld)2.2 %0.9-7.0[facility] [place] [facility] HospitalErythrocyte distribution width Auto (RBC) [Ratio]on 10-25-2023 Erythrocyte distribution width (RBC) [Ratio]14.5 %11.0-15.0[facility] [place] [facility] HospitalGlucose mean value [Mass/volume] in Blood Estimated from glycated hemoglobinon 52-38-5515Yukzbmt glucose Estimated from glycated hemoglobin (Bld) [Mass/Vol]88 mg/dLEast Ohio Regional HospitalHematocrit Auto (Bld) [Volume fraction]on 47-10-7866Pfcavrqtyv (Bld) [Volume fraction]39.8 %36.0-48.0 [facility] [place] [facility] HospitalHemoglobin [Mass/volume] in Bloodon 10-25-2023 Hemoglobin (Bld) [Mass/Vol]12.6 g/dL12.0-16.0[facility] INR in Platelet poor plasma by Coagulation assayon 49-48-1635QDH Coag (PPP) [Relative time]0.99 {INR}[facility] [place] [facility] HospitalComment on above: DESIRED INR:2.0-3.0 CONDITIONS NOT LISTED BELOW2.5-3.5 FOR PROSTHETIC HEART VALVE REPLACEMENT2.5-3.5 RECURRENT THROMBOSISLaboratory - Chemistry and Chemistry - challengeon 58-22-4497Kbnv T4 [Mass/Vol]1.24 ng/dL0.76-1.46[facility] [place] [facility] HospitalTSH Qn1.497 m[IU]/L0.358-3.740[facility] [place] [facility] HospitalLaboratory - Hematology and Cell countson 31-58-0404YeQ0g (Bld) [Mass fraction]4.7 %4.5-6.2FSt. Vincent HospitalComment on above:ADA RECOMMENDED LIMIT 4.0 - 6.0ADA THERAPEUTIC TARGET < 7.0ACTION SUGGESTED> 7.0 Immature granulocytes/100 WBC (Bld)0.2 %0.0-0.5FSt. Vincent Hospital Leukocytes [#/volume] corrected for nucleated erythrocytes in Blood by Automated counon 49-82-2648NIJ corrected for nucl RBC Auto (Bld) [#/Vol]5.5 10 3/uL 4.0-11.0[facility] [place] [facility] HospitalLymphocytes Auto (Bld) [#/Vol]on 25-43-2908Ryfkszeupxi (Bld) [#/Vol]1.8 10 3/uL1.2-3.8[facility] [place] [facility] HospitalLymphocytes/100 WBC Auto (Bld)on 78-55-6129Skunrcaxnep/100 WBC (Bld)33.3 % 20.5-60.0Premier HealthH Auto (RBC) [Entitic mass]on 48-31-5693RWA (RBC) [Entitic mass]27.9 pg26.7-34.0[facility] [place] [facility] HospitalMCHC Auto (RBC) [Mass/Vol]on 60-85-4841VYSF (RBC) [Mass/Vol]31.7 g/dL 29.9-35.2FMercy Health St. Elizabeth Youngstown HospitalV Auto (RBC) [Entitic vol]on 08-77-2408PBH (RBC) [Entitic vol]88.1 fL81.0-99.0[facility] [place] [facility] HospitalMonocytes Auto (Bld) [#/Vol]on 67-38-1352Vwyndxlan (Bld) [#/Vol]0.3 10 3/uL0.3-0.8[facility] [place] [facility] HospitalMonocytes/100 WBC Auto (Bld)on 23-57-7655Akcjqbgcn/100 WBC (Bld)5.4 %1.7-12.0[facility] Neutrophils Auto (Bld) [#/Vol]on 82-49-5579Iawntdmtkwh (Bld) [#/Vol]3.2 10 3/uL 1.4-6.5FSt. Vincent HospitalNeutrophils/100 WBC Auto (Bld)on 73-36-9224Sjbrtcdgdox/100 WBC (Bld)57.8 %43.0-75.0[facility] [place] [facility] HospitalNo Panel Informationon 26-46-8206CQNBOFEVRHJHQ HealthcareCLINISYNCNOMS HealthcareEosinophils # (Auto)0.1 10 3/uL0.0-0.7FSt. Vincent HospitalHuman Chorionic Gonadotropin, Quant<1 mIU/mLEast Ohio Regional HospitalComment on above:5-50 0.2-1 JLYR66-198 1-2 UFYGD262-6,000 2-3 QFWUA872- 10,000 3-4 WEEKS1,000-50,000 4-5 WEEKS10,000-100,000 5-6 WEEKS15,000-200,000 6-8 WEEKS10,000-100,000 2-3 MONTHSImmature Granulocyte # (Auto)0.01 10 3/uL 0.00-0.03[facility] [place] [facility] HospitalPlatelet mean volume Auto (Bld) [Entitic vol]on 24-19-5637Vhhqudyo mean volume (Bld) [Entitic vol]9.7 fL9.5-13.5 [facility] HospitalPlatelets Auto (Bld) [#/Vol]on 10-25-2023 Platelets (Bld) [#/Vol]300 10 3/iZ005-191JlrzkbgygEast [place] Regional Hospital Prothrombin time (PT)on 83-69-9700TO Coag (PPP) [Time]10.5 s9.0-11.6FSt. Vincent HospitalRBC Auto (Bld) [#/Vol]on 14-04-6743YNR (Bld) [#/Vol]4.52 10 6/uL4.20-5.40[facility] - AndersonRMCOH PROTHROMBIN TIME INR W/O COUMon 73-73-9702II Coag (PPP) [Time]10.5 [facility] HealthcareTB INR0.99NOMD HealthcareComment on above:DESIRED INR: 2.0-3.0 CONDITIONS NOT LISTED BELOW 2.5-3.5 FOR PROSTHETIC HEART VALVE REPLACEMENT 2.5-3.5 RECURRENT THROMBOSIS TBH PREG QUANT HCGon 23-28-0394LUE QUANTITATIVE<1mIU/mLNOMS HealthcareComment on above:5-50 0.2-1 WEEK 50-500 1-2 WEEKS 100-5,000 2-3 WEEKS 500-10,000 3-4 WEEKS 1,000-50,000 4-5 WEEKS 10,000-100,000 5-6 WEEKS 15,000-200,000 6-8 WEEKS 10,000-100,000 2-3 MONTHS US PELVIS W/ TRANSVAGINALon 10-50-1810[address] [address] Ultrasound Report Signed Patient: KARUNA DUMONT MR#: [id number] : 1980 Acct:[id number] Age/Sex: 42 / F ADM Date: 10/25/23 Loc: [facility] Attending Dr: Sanjeev Lopez D.O. Ordering Physician: Sanjeev Lopez D.O. Date of Service: 10/25/23 Procedure(s): US pelvis w/ transvaginal Accession Number(s): [id number] cc: Johnathon Winter M.D.; Sanjeev Lopez D.O. [place] [id number] Patient Name: KARUNA DUMONT MRN: TBH:[id number] date: 1980 Sex: F Assigned Patient Location: [facility] Current Patient Location: LAB Accession/Order Number: [id number] Exam Date: 10/25/2023 09:07 Report Date: 10/25/2023 [...] Signed By: 10/25/23 1113 DD/ 1110 TD/TT: Floating Derrick Operator:TBHRadiology, Radiologist, - 10/25/2023 [place] [address] Ultrasound Report Signed Patient: KARUNA DUMONT MR#: [id number] : 1980 Acct:[id number] Age/Sex: 42 / F ADM Date: 10/25/23 Loc: NOMS Attending Dr: Sanjeev Lopez D.O. Ordering Physician: Sanjeev Lopez D.O. Date of Service: 10/25/23 Procedure(s): US pelvis w/ transvaginal Accession Number(s): [id number] cc: Johnathon Winter M.D.; Sanjeev Lopez D.O. [place] [id number] Patient Name: KARUNA DUMONT MRN: TBH:[id number] date: 1980 Sex: F Assigned Patient Location: NOMS Current Patient Location: LAB Accession/Order Number: [id number] Exam Date: 10/25/2023 09:07 Report Date: 10/25/2023 [...] Signed By: 10/25/23 1113 DD/ 1110 TD/TT: Floating Derrick Operator: SCOOTER [facility] OhioRadiology Study observation (narrative)NOM HealthcareUS PELVIS W/ TRANSVAGINALOrdered By: Radiologist Radiology on 81-77-6840JNXBMosaic Life Care at St. Joseph Work Phone: coding Summaryon 91-67-6412Gtndwr SummaryHTMLBase 64 JldouukoAJd9hOp+PGhlYWQ+BP9CBYTfU94akKYirI4bC5FYUBbAAwvnVQIFILbNFwOzyyYjWQ1phMRr ZXJu [file] ZTo (more content not included)...[facility] NorthED Clinical Summaryon 02-87-5950ZWWVUMedicine [facility] ? 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 ? Urgent Care [address] [place] [address] PATIENT DISCHARGE INSTRUCTIONS Patient Information Name: KARUNA DUMONT Age: 42 Years Date of : 1980 Reason For Visit: Skin problem; RASH ON ARMS Arrival Time: 08/23/2023 14:45:23 Primary Care Physician: Johnathon Winter MD Attending Physician: Yissel Resendez PA-C Comment: Patient Education With: Address: When: Johnathon Winter MD [address] [place] [address] [phone] Rash, Adult A rash is a change [...] with your condition: Medicine Take or apply anlq-cam-jslfwtg and prescription medicines only as told by [...] a bath with: ? Epsom salts. Follow postal transportation clerk instructions on the packaging. You can get these at your local pharmacy or grocery store. ? Baking soda. Pour a small amount into the bath as told by your health care provider. ? Colloidal oatmeal. Follow postal transportation clerk instructions on the packaging. You can get this at your local pharmacy or grocery store. ? Try applying baking soda paste to your skin. Stir water into baking soda until it reaches a paste-like consistency. ? Try applying calamine lotion. This is an ngpl-ffl-nlqyxit lotion that helps to relieve itchiness. ? [...] rash from spreading. ? Take or apply teai-xox-unqpqwu and prescription medicines only as told by your health care provider. ? Contact a health care provider if you have new or worsening symptoms. ? Keep all follow-up visits as told by yo (more content not included)...Normal [facility] HospitalALL DHEA SULFATEon 03-99-2786SPCN-MUFUSEH588.0 ug/dL57.3 - 279.2 ug/dLMosaic Life Care at St. JosephALL ESTRONE(E1)on 33-02-4806BHQEBQVXS07.9 pg/mL.[facility] HealthcareComment on above:Adult Female Range Follicular phase 12.5 - 166.0 Ovulation phase 85.8 - 498.0 Luteal phase 43.8 - 211.0 Postmenopausal <6.0 - 54.7 1st trimester 215.0 - >4300.0 Skylar ECLIA methodology ALL PROGESTERONEon 29-88-3146WMZSNTLVTDNG9.1 ng/mL.[facility] HealthcareComment on above:Follicular phase 0.1 - 0.9 Luteal phase 1.8 - 23.9 Ovulation phase 0.1 - 12.0 First trimester 11.0 - 44.3 Second trimester 25.4 - 83.3 Third trimester 58.7 - 214.0 Postmenopausal 0.0 - 0.1 Performed at: [facility] Lab[address] [id number] Android [employer] Developer: Theron Roblero PhD, Phone: [phone] ALL T3 REVERSEon 60-68-4580TRDPHQL T3, SERUM23.0 ng/dL9.2 - 24.1 ng/dLNOMS HealthcareComment on above:This test was developed and its performance characteristics determined by [employer]. It has not been cleared or approved by the Food and Drug Administration. Performed at: [address] [id number] Android Ios Developer: Katelynn Macdonald MD, Phone: [phone] METRO SEX BINDING HORMONE (SHBG), TESTOSTERONE, FREE AND BIOAVAILABLEon 25-59-2317PPT HORM BINDING GLOB, SERUM49.1 nmol/L24.6 - 122.0 nmol/LNOMS HealthcareComment on above:Performed at: [address] [id number] Android [employer] Developer: Theron Roblero PhD, Phone: [phone] No Panel Informationon 98-77-1275NRZKUDAKPBYAZ HealthcareSROH TESTOSTERONE FREE/TOT EQUILIBon 12-32-7716DUOI TESTOSTERONE(DIRECT)0.6 pg/mL0.0 - 4.2 pg/mL NOMS HealthcareComment on above:Performed at: [address] [id number] Android [employer] Developer: Theron Roblero PhD, Phone: [phone] Performed at: [address] [id number] Android [employer] Developer: Katelynn Macdonald MD, Phone: [phone] Testosterone [Mass/Vol]22 ng/dL8 - 60 ng/dLNOMD HealthcareTB THYROID ANTIBODIES on 64-22-8838VHRPIPVLXSFKQ ANTIBODY<1.0NOMS HealthcareComment on above: Thyroglobulin Antibody measured by [employer] Performed at: [address] [id number] Android [employer] Developer: Theron Roblero PhD, Phone: [phone] THYROID PEROXIDASE (TPO) RP63FGPL HealthcareUH SEROTONINon 17-50-5451ZRHFPFTIJ, VAOSB713 ng/mL31 - 207 ng/mLNOMS HealthcareComment on above:This test was developed and its performance characteristics determined by [employer]. It has not been cleared or approved by the Food and Drug Administration. Performed at: [address] [id number] Android [employer] Developer: Katelynn Macdonald MD, Phone: [phone] MM POST BIOPSY LTon 68-86-3343Mwy[address] [address] Mammography Report Signed Patient: KARUNA DUMONT MR#: [id number] : 1980 Acct:[id number] Age/Sex: 42 / F ADM Date: 05/23/23 Loc: MAMMO Attending Dr: Sanjeev Lopez D.O. Ordering Physician: Sanjeev Lopez D.O. Results: Date of Service: 05/23/23 Follow Up: Procedure(s): MM post biopsy LT Accession Number(s): [id number] cc: Johnathon Winter M.D.; Sanjeev Lopez D.O. Patient Name: KARUNA DUMONT MR#: [id number] : 1980 Exam Date: 05/23/2023 Ordering Doctor: [...] M.D. Signed By: 06/09/23902 DD/ 1 TD/TT: Floating Derrick Operator:TBHRadiology, Radiologist, - 06/09/2023 [place] [address] Mammography Report Signed Patient: KARUNA DUMONT MR#: [id number] : 1980 Acct:[id number] Age/Sex: 42 / F ADM Date: 05/23/23 Loc: MAMMO Attending Dr: Sanjeev Lopez D.O. Ordering Physician: Sanjeev Lopze D.O. Results: Date of Service: 05/23/23 Follow Up: Procedure(s): MM post biopsy LT Accession Number(s): [id number] cc: Johnathon Winter M.D.; Sanjeev Lopez D.O. Patient Name: KARUNA DUMONT MR#: [id number] : 1980 Exam Date: 05/23/2023 Ordering Doctor: [...] M.D. Signed By: 06/09/23902 DD/ 1 TD/TT: Floating Derrick Operator: SCOOTER [facility] OhioRadiology Study observation (narrative)[facility] POST BIOPSY LTOrdered By: Radiologist Radiology on 47-23-4415[employer] Work Phone: mm STEREOTACTIC LOC LTon 72-62-6500[place] [address] Mammography Report Signed Patient: KARUNA DUMONT MR#: [id number] : 1980 Acct:[id number] Age/Sex: 42 / F ADM Date: 05/23/23 Loc: MAMMO Attending Dr: Sanjeev Lopez D.O. Ordering Physician: Sanjeev Lopez D.O. Results: Date of Service: 05/23/23 Follow Up: Procedure(s): MM stereotactic loc LT Accession Number(s): [id number] cc: Johnathon Winter M.D.; Sanjeev Lopez D.O. Patient Name: KARUNA DUMONT MR#: [id number] : 1980 Exam Date: 05/23/2023 Ordering Doctor: [...] M.D. Signed By: 06/09/23901 DD/ 0 TD/TT: Floating Derrick Operator:TBHRadiology, Radiologist, MD - 06/09/2023 [place] [address] Mammography Report Signed Patient: KARUNA DUMONT MR#: [id number] : 1980 Acct:[id number] Age/Sex: 42 / F ADM Date: 05/23/23 Loc: MAMMO Attending Dr: Sanjeev Lopez D.O. Ordering Physician: Sanjeev Lopez D.O. Results: Date of Service: 05/23/23 Follow Up: Procedure(s): MM stereotactic loc LT Accession Number(s): [id number] cc: Johnathon Winter M.D.; Sanjeev Lopez D.O. Patient Name: KARUNA DUMONT MR#: [id number] : 1980 Exam Date: 05/23/2023 Ordering Doctor: [...] M.D. Signed By: 06/09/23901 DD/ 0 TD/TT: Floating Derrick Operator: SCOOTER HealthcareRadiology Study observation (narrative)[facility] STEREOTACTIC LOC LTOrdered By: Radiologist Radiology on 55-75-5935[facility] Work Phone: Lox [phone]: [phone] Received: 05/24/231322 Status: NATHAN Guzmán Num: [id number] Spec Type: Surgical Subm Dr: Tee Peterson MD Tissues: A BREAST CORE NO CALCS (LT BREAST) Procedures: HE/4, Gross/Micro L4, AE1-AE3/2 Age/ Patient Sex Location Account Attending Physician JuliaKaruna Radha 42/F LABELL [id number] Tee Peterson MD SPEC NUM: [id number] RECD: 05/24/23 STATUS: NATHAN GUZMÁN NUM: [id number] GENEVA: 05/23/23- SUBM DR: Tee Peterson MD ENTERED: 05/24/[address] [facility] [address]: Bert,Lab SPEC TYPE: Surgical DEPT: [...] Time: 0.10 Formalin Fixation Time: 28.50 Specimen: [id number] Received: 05/24/23 Status: NATHAN Burnsq Num: [id number] Spec Type: Surgical Subm Dr: Tee Pteerson MD Tissues: A BREAST CORE NO CALCS (LT BREAST) Procedures: , Gross/Micro L4, AE1-AE3/2 Patient: Karuna Dumont [id number] (Continued) Specimen: [id number] Received: 05/24/23 (Continued) Signed (signature on file) Tootie Jordan MD 05/31/236 Specimen: [id number] Received: 05/24/23 Status: NATHAN Guzmán Num: [id number] Spec Type: Surgical Subm Dr: Tee Peterson MD Tissues: A BREAST CORE NO CALCS (LT BREAST) Procedures: , Gross/Micro L4, AE1-AE3/2 Patient: Karuna Dumont [id number] (Continued) Specimen: [id number] Received: 05/24/23 (Continued) CPT Codes 37541 Specimen: [id number] Received: 05/24/23 Status: NATHAN Guzmán Num: [id number] Spec Type: Surgical Subm Dr: Tee Peterson MD Tissues: A BREAST CORE NO CALCS (LT BREAST) Procedures: HE/4, Gross/Micro L4, AE1-AE3/2 Patient: Karuna Dumont [id number] (Continued) Signed (signature on file) Tootie Jordan MD 05/31/[address] [place] [address] Physician Group POST BIOPSY LTon 05-23-2023 [place] [address] Mammography Report Signed Patient: KARUNA DUMONT MR#: [id number] : 1980 Acct:[id number] Age/Sex: 42 / F ADM Date: 05/23/23 Loc: MAMMO Attending Dr: Sanjeev Lopez D.O. Ordering Physician: Sanjeev Lopez D.O. Results: Date of Service: 05/23/23 Follow Up: Procedure(s): MM post biopsy LT Accession Number(s): [id number] cc: Johnathon Winter M.D.; Sanjeev Lopez D.O. Patient Name: KARUNA DUMONT MR#: [id number] : 1980 Exam Date: 05/23/2023 Ordering Doctor: [...] Signed By: 05/23/23 1439 DD/ 1438 TD/TT: Floating Derrick Operator:TBHRadiology, Radiologist, MD - 05/23/2023 [place] [address] Mammography Report Signed Patient: KARUNA DUMONT MR#: [id number] : 1980 Acct:[id number] Age/Sex: 42 / F ADM Date: 05/23/23 Loc: MAMMO Attending Dr: Sanjeev Lopez D.O. Ordering Physician: Sanjeev Lopez D.O. Results: Date of Service: 05/23/23 Follow Up: Procedure(s): MM post biopsy LT Accession Number(s): [id number] cc: Johnathon Winter M.D.; Sanjeev Lopez D.O. Patient Name: KARUNA DUMONT MR#: [id number] : 1980 Exam Date: 05/23/2023 Ordering Doctor: [...] Signed By: 05/23/23 1439 DD/ 1438 TD/TT: Floating Derrick Operator: SCOOTER HealthcareRadiology Study observation (narrative)SCOOTER HealthcareMM POST BIOPSY LTOrdered By: Radiologist Radiology on 51-67-7869[facility] Work Phone: mm STEREOTACTIC LOC LTon 05-89-6640Mzt[place] [address] Mammography Report Signed Patient: KARUNA DUMONT MR#: [id number] : 1980 Acct:[id number] Age/Sex: 42 / F ADM Date: 05/23/23 Loc: MAMMO Attending Dr: Sanjeev Lopez D.O. Ordering Physician: Sanjeev Lopez D.O. Results: Date of Service: 05/23/23 Follow Up: Procedure(s): MM stereotactic loc LT Accession Number(s): [id number] cc: Johnathon Winter M.D.; Sanjeev Lopez D.O. Patient Name: KARUNA DUMONT MR#: [id number] : 1980 Exam Date: 05/23/2023 Ordering Doctor: [...] Signed By: 05/23/23 1438 DD/ 1437 TD/TT: Floating Derrick Operator:TBHRadiology, Radiologist, MD - 05/24/2023 [place] [address] Mammography Report Signed Patient: KARUNA DUMONT MR#: [id number] : 1980 Acct:[id number] Age/Sex: 42 / F ADM Date: 05/23/23 Loc: MAMMO Attending Dr: Sanjeev Lopez D.O. Ordering Physician: Sanjeev Lopez D.O. Results: Date of Service: 05/23/23 Follow Up: Procedure(s): MM stereotactic loc LT Accession Number(s): [id number] cc: Johnathon Winter M.D.; Sanjeev Lopez D.O. Patient Name: KARUNA DUMONT MR#: [id number] : 1980 Exam Date: 05/23/2023 Ordering Doctor: [...] M.D. Signed By: 05/23/231437 DD/ 36 TD/TT: Floating Derrick Operator: [facility] JosephRadiology Study observation (narrative)[facility] St. JosephMM STEREOTACTIC LOC LTOrdered By: Radiologist Radiology on 34-57-1686[facility] Work Phone: aLL C-PEPTIDEon 24-25-9263V-PEPTIDE, SERUM2.8 ng/mL1.1 - 4.4 ng/mLNOMS HealthcareComment on above:C-Peptide reference interval is for fasting patients. Performed at: [address] [id number] [employer] Developer: Theron Roblero PhD, Phone: [phone] No Panel Informationon 40-96-4952DKVYDZOXAYXAY HealthcareTBH ESTRONEon 48-23-4919OGLCBPD, SERUM65 pg/mL27 - 231 pg/mLNOMS HealthcareComment on above: Range Adult (Premenopausal) 27 - 231 Menstrual Cycle (1-10 days) 19 - 149 Menstrual Cycle (11-20 days) 32 - 176 Menstrual Cycle (21-30 days) 37 - 200 Performed at: [address] [id number] Android Ios Developer: Katelynn Macdonald MD, Phone: [phone] [facility] INSULINon 05-16-1747NEZGMXL7.0NOMS HealthcareComment on above:Performed at: [address] [id number] Android [employer]os Developer: Theron Roblero PhD, Phone: [phone] CORTISOL, FREE DIALYSIS, LCMSon 69-91-9227HKZQIXSC, FREE DIALYSIS, LCMS0.787 ug/dL.[facility] St. JosephComment on above:These tests were developed and their performance characteristics determined by [facility]. They have not been cleared or approved by the Food and Drug Administration. Reference Range: 8 AM 0.10 - 1.20 4 PM 0.042 - 0.872 Performed at: [place] [address] [place] [id number] Android Ios Developer: Kal Archibald MD, Phone: [phone] [facility] DIAGNOSTIC MAMMO UNILAT LTon 68-66-0661SnkGl[place] [address] Mammography Report Signed Patient: KARUNA DUMONT MR#: [id number] : 1980 Acct:[id number] Age/Sex: 42 / F ADM Date: 05/10/23 Loc: MAMMO Attending Dr: Sanjeev Lopez D.O. Ordering Physician: Sanjeev Lopez D.O. Results: Date of Service: 05/10/23 Follow Up: Procedure(s): MM diagnostic mammo unilat LT Accession Number(s): [id number] cc: Johnathon Winter M.D.; Sanjeev Lopez D.O. Patient Name: KARUNA DUMONT MR#: [id number] : 1980 Exam Date: 05/10/2023 Ordering Doctor: [...] stomach cancer at age 67. LOCATION: [facility] BREAST COMPOSITION: Scattered areas fibroglandular density. [...] Signed By: 05/15/23 1313 DD/ 0842 TD/TT: Floating Derrick Operator:TBHRadiology, Radiologist, - 06/07/2023 [address] [place] [id number] Mammography Report Signed Patient: KARUNA DUMONT MR#: [id number] : 1980 Acct:[id number] Age/Sex: 42 / F ADM Date: 05/10/23 Loc: MAMMO Attending Dr: Sanjeev Lopez D.O. Ordering Physician: Sanjeev Lopez D.O. Results: Date of Service: 05/10/23 Follow Up: Procedure(s): MM diagnostic mammo unilat LT Accession Number(s): [id number] cc: Johnathon Winter M.D.; Sanjeev Lopez D.O. Patient Name: KARUNA DUMONT MR#: [id number] : 1980 Exam Date: 05/10/2023 Ordering Doctor: [...] stomach cancer at age 67. LOCATION: [facility] BREAST COMPOSITION: Scattered areas fibroglandular density. [...] Signed By: 05/15/23 1313 DD/ 0842 TD/TT: Floating Derrick Operator: [employer]Chel[employer] Panel InformationOrdered By: Radiologist Radiology on 47-98-7601TA[employer] Work Phone: US BREAST LT LIMITEDon 21-93-6332[place] [address] Ultrasound Report Signed Patient: KARUNA DUMONT MR#: [id number] : 1980 Acct:[id number] Age/Sex: 42 / F ADM Date: 05/10/23 Loc: MAMMO Attending Dr: Sanjeev Lopez D.O. Ordering Physician: Sanjeev Lopez D.O. Date of Service: 05/10/23 Procedure(s): US breast LT limited Accession Number(s): [id number] cc: Johnathon Winter M.D.; Sanjeev Lopez D.O. Patient Name: KARUNA DUMONT MR#: [id number] : 1980 Exam Date: 05/10/2023 Ordering Doctor: [...] stomach cancer at age 67. LOCATION: [facility] BREAST COMPOSITION: Scattered areas fibroglandular density. [...] Signed By: 05/15/23 1313 DD/ 0842 TD/TT: Floating Derrick Operator:TBHRadiology, Radiologist, - 05/15/2023 [place] [address] Ultrasound Report Signed Patient: KARUNA DUMONT MR#: [id number] : 1980 Acct:[id number] Age/Sex: 42 / F ADM Date: 05/10/23 Loc: MAMMO Attending Dr: Sanjeev Lopez D.O. Ordering Physician: Sanjeev Lopez D.O. Date of Service: 05/10/23 Procedure(s): US breast LT limited Accession Number(s): [id number] cc: Johnathon Winter M.D.; Sanjeev Lopez D.O. Patient Name: KARUNA DUMONT MR#: [id number] : 1980 Exam Date: 05/10/2023 Ordering Doctor: [...] stomach cancer at age 67. LOCATION: [facility] BREAST COMPOSITION: Scattered areas fibroglandular density. [...] Signed By: 05/15/23 1313 DD/ 0842 TD/TT: Floating Derrick Operator: SCOOTER HealthcareALL T3 FREEon 18-36-4395Lyut T3 [Mass/Vol]2.67 pg/mL2.18 - 3.98 pg/mLNOMS HealthcareALL THYROID STIM HORMONEon 69-28-1406WIG Qn1.735 m[IU]/LNOMS HealthcareALL THYROXINE (T4)on 37-70-7543I4 [Mass/Vol]9.00 ug/dL4.80 - 13.90 ug/dLNOMS HealthcareALL THYROXINE (T4) FREEon 22-25-9200Bhdm T4 [Mass/Vol]1.29 ng/dL0.76 - 1.46 ng/dLNOMS HealthcareCCF FERRITINon 64-86-7230Vvjeqgbe [Mass/Vol]40.0 ng/mL8.0 - 252.0 ng/mLNOMS HealthcareFree testosterone measurement by LC-MS/MSon 93-17-7377Aqeppslnzozq Free [Mass/Vol]0.6 pg/mL0.0-4.2 [facility] HospitalComment on above:Performed at: - [facility] [address] [place], [place] [id number] Director: Theron Roblero PhD, Phone: [phone] at: - [facility] [id number] Director: Katelynn Macdonald MD, Phone: [phone] HEMOGLOBIN A1Con 21-78-6093Zwelrgy [Mass/Vol]94 mg/dLNOMS GnyzlpvqqiCdV9f (Bld) [Mass fraction]4.9 %4.5 - 6.2 %NOMS HealthcareComment on above:ADA RECOMMENDED LIMIT 4.0 - 6.0 ADA THERAPEUTIC TARGET < 7.0 ACTION SUGGESTED > 7.0 CLINISYNCNOMS HealthcareMM DIAGNOSTIC MAMMO UNILAT LTon 97-81-3268[place]fv[place] [address] Mammography Report Signed Patient: KARUNA DUMONT MR#: [id number] : 1980 Acct:[id number] Age/Sex: 42 / F ADM Date: 05/10/23 Loc: MAMMO Attending Dr: Sanjeev Lopez D.O. Ordering Physician: Sanjeev Lopez D.O. Results: Date of Service: 05/10/23 Follow Up: Procedure(s): MM diagnostic mammo unilat LT Accession Number(s): [id number] cc: Johnathon Winter M.D.; Sanjeev Lopez D.O. Patient Name: KARUNA DUMONT MR#: [id number] : 1980 Exam Date: 05/10/2023 Ordering Doctor: [...] stomach cancer at age 67. LOCATION: [facility] BREAST COMPOSITION: Scattered areas fibroglandular density. [...] Signed By: 05/10/23 0843 DD/ 0842 TD/TT: Floating Derrick Operator:TBHRadiology, Radiologist, - 05/10/2023 [place] [address] Mammography Report Signed Patient: KARUNA DUMONT MR#: [id number] : 1980 Acct:[id number] Age/Sex: 42 / F ADM Date: 05/10/23 Loc: MAMMO Attending Dr: Sanjeev Lopez D.O. Ordering Physician: Sanjeev Lopez D.O. Results: Date of Service: 05/10/23 Follow Up: Procedure(s): MM diagnostic mammo unilat LT Accession Number(s): [id number] cc: Johnathon Winter M.D.; Sanjeev Lopez D.O. Patient Name: KARUNA DUMONT MR#: [id number] : 1980 Exam Date: 05/10/2023 Ordering Doctor: [...] stomach cancer at age 67. LOCATION: [facility] BREAST COMPOSITION: Scattered areas fibroglandular density. [...] M.D. Signed By: 05/10/23842 DD/ 1 TD/TT: Floating Derrick Operator: SCOOTER Murphy DIAGNOSTIC MAMMO UNILAT LTOrdered By: Radiologist Radiology on 05-17-9547WNZV Healthcare Work Phone: No [facility] Informationon 86-80-4725KIJGYQQXCRNXS HealthcareCLINISYNCNKansas City VA Medical CenterC-Peptide2.8 ng/mL1.1-4.4FSt. Vincent HospitalComment on above:C-Peptide reference interval is for fasting patients.Performed at: - Lab[address] [id number] Director: Theron Roblero PhD, Phone: [phone] Dehydroepiandrosterone Jdmewhh701.0 ug/dL57.3-279.2FSt. Vincent HospitalFree Cortisol, Dialysis, LCMS0.787 ug/dL.[facility] Comment on above:These tests were developed and their performancecharacteristics determined by [employer]. They have not beencleared or approved by the Food and Drug Administration.Reference Range:8 AM 0.10 - 1.204 PM 0.042 - 0.872Performed at: ES [facility] [employer] [address] [place], [place] [id number] Dir martín: Kal Archibald MD, Phone: [phone] Triiodothyronine (T3)23.0 ng/dL9.2-24.1FSt. Vincent HospitalComment on above:This test was developed and its performance characteristicsdetermined by [employer]. It has not been cleared orapproved by the Food and Drug Administration.Performed at: [facility] [employer] [id number] Director: Katelynn Macdonald MD, Phone: [phone] Hormone Binding Lqsyfrge34.1 nmol/L24.6-122.0 [facility] [place] [facility] HospitalComment on above:Performed at: [address] [id number] Director: Theron Roblero PhD, Phone: [phone] Level22 ng/dL8-60[facility] Radiology Study observation (narrative)NOMS HealthcarePlasma serotonin measurement (mass/volume)on 22-53-6991Ybensswtn (P) [Mass/Vol]105 ng/vP07-751 [facility] [place] [facility] HospitalComment on above:This test was developed and its performance characteristicsdetermined by [employer]. It has not been cleared orapproved by the Food and Drug Administration.Performed at: [facility] [employer] [id number] Director: Katelynn Macdonald MD, Phone: [phone] estrone measurementon 33-50-1211Y6 [Mass/Vol]65 pg/mL 27-231[facility] [place] [facility] HospitalComment on above:Range Adult (Premenopausal) 27 - 231 Menstrual Cycle (1-10 days) 19 - 149 Menstrual Cycle (11-20 days) 32 - 176 Menstrual Cycle (21-30 days) 37 - 200Performed at: [place] [address] [place], [place] [id number] Director: Katelynn Macdonald MD, Phone: [phone] or plasma estradiol (E2) measurement (mass/volume)on 58-17-2750F8 [Mass/Vol]98.9 pg/mL.[facility] HospitalComment on above:Adult Female Range Follicular phase 12.5 - 166.0 Ovulation phase 85.8 - 498.0 Luteal phase 43.8 - 211.0 Postmenopausal <6.0 - 54.7 1st trimester 215.0 - >4300.0Roche ECLIA methodologySerum or plasma insulin measurement (units/volume)on 27-10-8236Stshccj Qn7.0 u[iU]/mL 2.6-24.9East Ohio Regional HospitalComment on above:Performed at: [id number] [place] [address] [id number] Director: Theron Roblero PhD, Phone: [phone] or plasma progesterone measurement (mass/volume)on 05-74-1169Yspslphtagel [Mass/Vol]0.1 ng/mL.[facility] Ohio Regional HospitalComment on above:Follicular phase 0.1 - 0.9 Luteal phase 1.8 - 23.9 Ovulation phase 0.1 - 12.0 First trimester 11.0 - 44.3 Second trimester 25.4 - 83.3 Third trimester 58.7 - 214.0 Postmenopausal 0.0 - 0.1Per formed at: [facility] [place] [address] [id number] Director: Theron Manley, Phone: [phone] or plasma thyroperoxidase antibody assay (units/volume)on 85-67-3583CVP Ab Qn11 [IU]/mL0-34[facility] Regional HospitalTB GLUCOSE BLOODon 73-22-0807Ltyblga [Mass/Vol]81 mg/dL 74 - 106 mg/dLNOMD HealthcareTB VITAMIN D 25 OHon 47-93-4429FXFHBSD D29.0 ng/mL NOMS HealthcareComment on above:<20 ng/mL Vit D deficient 20-<30 ng/mL Vit D insufficient 30-100 ng/mL Vit D sufficient >100 ng/mL Potential Toxicity Thyroglobulin [Mass/volume] in Serum or Plasmaon 80-39-4207Qtutiufgrojwj [Mass/Vol]<1.0 [IU]/mL0.0-0.9[facility] [place] Regional HospitalComment on above: Thyroglobulin Antibody measured by Sarah CoulterMethodologyPerformed at: CB - [facility] [address] [place], [place] [id number] Director: Theron Roblero PhD, Phone: [phone] TOMOSYNTHESIS SCREENING BIon 45-32-3016[address] [address] Mammography Report Signed Patient: KARUNA DUMONT MR#: [id number] : 1980 Acct:[id number] Age/Sex: 42 / F ADM Date: 04/28/23 Loc: MAMMO Attending Dr: Sanjeev Lopez D.O. Ordering Physician: Sanjeev Lopez D.O. Results: Date of Service: 04/28/23 Follow Up: Procedure(s): MM tomosynthesis screening BI Accession Number(s): [id number] cc: Johnathon Winter M.D.; Sanjeev Lopez D.O. Patient Name: KARUNA DUMONT MR#: [id number] : 1980 Exam Date: 04/28/2023 Ordering Doctor: [...] stomach cancer at age 67. LOCATION: [facility] BREAST COMPOSITION: Scattered areas fibroglandular density. [...] Signed By: 04/28/23 1244 DD/ 1244 TD/TT: Floating Derrick Operator:TBHRadiology, Radiologist, - 04/28/2023 [place] [address] Mammography Report Signed Patient: KARUNA DUMONT MR#: [id number] : 1980 Acct:[id number] Age/Sex: 42 / F ADM Date: 04/28/23 Loc: MAMMO Attending Dr: Sanjeev Lopez D.O. Ordering Physician: Sanjeev Lopez D.O. Results: Date of Service: 04/28/23 Follow Up: Procedure(s): MM tomosynthesis screening BI Accession Number(s): [id number] cc: Johnathon Winter M.D.; Sanjeev Lopez D.O. Patient Name: KARUNA DUMONT MR#: [id number] : 1980 Exam Date: 04/28/2023 Ordering Doctor: [...] stomach cancer at age 67. LOCATION: [facility] BREAST COMPOSITION: Scattered areas fibroglandular density. [...] Signed By: 04/28/23 1244 DD/ 43 TD/TT: Floating Derrick Operator: [facility] JosephRadiology Study observation (narrative)[facility] St. JosephMM TOMOSYNTHESIS SCREENING BIOrdered By: Radiologist Radiology on 39-73-2037[facility] Work Phone: No Panel Informationon 39-05-7058Vh acute bony abnormalities are noted [facility] CONSOLIDATEDEXAMINATION: THREE XRAY VIEWS OF THE [...] well maintained. Soft tissue swelling. Calcaneal spurs [facility] CenterMiller thomas MD - 10/11/2022 EXAMINATION: THREE XRAY [...] IMPRESSION: No acute bony abnormalities are noted [facility] CENTERRadiology Study observation (narrative)[facility] CENTERNo Panel InformationOrdered By: Miller Romo on 53-28-7683KZO [facility] [employer] Work Phone: XR ANKLE RIGHT (MIN 3 VIEWS)on 89-55-4532RM ANKLE RIGHT (MIN 3 VIEWS)EXAMINATION: THREE XRAY [...] 10/11/22 Final resultNormalSelect Medical Specialty Hospital - Cincinnati NorthXR FOOT RIGHT (MIN 3 VIEWS)on 62-68-3274VI FOOT RIGHT (MIN 3 VIEWS)EXAMINATION: THREE XRAY [...] 10/11/22 Final resultNormalSelect Medical Specialty Hospital - Cincinnati NorthPAP ACOG PANEL 2: 30 to 65on 07-16-2022..NormalThe [facility] HospitalComment on above:Result Comment: Performed at: WBPerformed By: #### [id number] #### [facility] [address] [place] [address] Dr. Dang Rogel Gdln ACOG Fqhdxuk54-40SmefykFbwMercy Health St. Elizabeth Boardman HospitalCommclaren greater [facility]ans[facility] hospital on above:Performed By: #### [id number] #### [facility] [address] [place] [address] Dr. Dang KirbyDIAGNOSIS:CommentChillicothe VA Medical Center on above: Result Comment: NEGATIVE FOR INTRAEPITHELIAL LESION OR MALIGNANCY. THIS SPECIMEN WAS RESCREENED PART OF OUR [employer] SYSTEM[employer] ADMINISTRATOR PROGRAM. Performed at: WBPerformed By: #### [id number] #### [facility] [address] [place] [address] Dr. Dang Peace AptimaNegativeNormalNegativeSelect Medical [facility] - Dublin on above:Result Comment: This nucleic acid amplification test detects fourteen high-risk HPV types (16,18,31,33,35,39,45,51,52,56,58,59,66,68) without differentiation. Performed at: =GPerformed By: #### [id number] #### [facility] [address] [place] [address] Dr. Dang KirbyHPDomenica Genotype ReflexCommentChillicothe VA Medical Center on above:Result Comment: Criteria not met, HPV Genotype not performed. Performed at: WBPerformed By: #### [id number] #### [facility] [address] [place] [address] Dr. Dang KirbyMethodology:CommentNoThe [facility] on above: Result Comment: This liquid based ThinPrep(R) pap test was screened with the use of an image guided system. Performed at: WBPerformed By: #### [id number] #### [facility] [address]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 4589906-17-2025 09:57-0400Body mass index (BMI) [Ratio]31.62 kg/j8Rmblgmg Rusher DPM Work Phone: 1(523)[address] [place], [place] 4589906-17-2025 09:57-0400Body milqhn58.18 kgAnthony Rusher DPM Work Phone: 1(592)[address] [place], [place] 4589906-04-2025 08:26-0400Body epfayq813.1 cmAnthony Rusher DPM Work Phone: 1(157)[address] [place], [place] 4589906-04-2025 08:26-0400Body mass index (BMI) [Ratio]31.62 kg/c7Lhgniuf Rusher DPM Work Phone: 1(644)[address] [place], [place] 4589906-04-2025 08:26-0400Body yhlucp65.18 kgAnthony Rusher DPM Work Phone: 1(887)[address] [place], [place] 4589905-21-2025 13:09-0400Body stvbuk514.1 cmAnthony Rusher DPM Work Phone: [phone])[address] [place], [place] 4589905-21-2025 13:09-0400Body mass index (BMI) [Ratio]31.62 kg/v3Hxogxbd Rusher DPM Work Phone: 1(336)[address] [place], [place] 4589905-21-2025 13:09-0400Body lfafcy72.18 kgAnthony Rusher DPM Work Phone: 1(082)[address] [place], [place] 4589904-30-2025 13:47-0400Body .[address]04-30-2025 13:47-0400Body mass index (BMI) [Ratio] 31.62 kg/m[address]04-30-2025 13:47-0400Body cculpp98.18 [address] [place], [place] 9857604-30-2025 12:55-0400Body bwrzan382.1 cmAnthony Rusher DPM Work Phone: [facility] JosephAfthsmesqk90-76-7319 12:55-0400Body mass index (BMI) [Ratio]31.62 kg/w0Eteitaf Rusher DPM Work Phone: [facility] JosephMgbcckxgln63-05-3828 12:55-0400Body .18 kgAnthony Rusher DPM Work Phone: [facility] JosephAhtrarpioy47-06-1759 11:17-0400Body qjbdde627.64 cm[facility]04-28-2025 11:17-0400Body mass index (BMI) [Ratio]32.9 kg/i2LjbrsovnnEast [facility] Hospital04-28-2025 11:17-0400Body .53 kgEast [facility]04-28-2025 11:17-0400Diastolic blood mm[Hg][facility]04-28-2025 11:17-0400 Heart rate73 /minEast [facility]04-28-2025 11:17-0400Systolic blood qubfrnfe699 mm[Hg][facility]04-21-2025 14:12-0400 Body mass index (BMI) [Ratio]34.11 kg/x3Lolul Jessica DO Work Phone: [facility] JosephNygepfqxja45-88-0148 14:12-0400Body fowvbm18.99 kgCorey Jessica DO Work Phone: [facility] JosephFdrymedxdf91-09-6190 14:12-0400Diastolic blood ibgwaupv42 mm[Hg]Sanjeev Jessica DO Work Phone: [facility] JosephGkiitixqyh71-02-6475 14:12-0400Systolic blood bfzhvciu665 mm[Hg]Sanjeev Jessica DO Work Phone: [place] [address]Vtisbsutcs93-47-0051 09:09-0400Body bjksuy651.1 cmAnthony Rusher DPM Work Phone: [facility] JosephMheyctjmre50-89-3000 09:09-0400Body mass index (BMI) [Ratio]31.62 kg/r6ZtlygooGeorgi Carreon DPM Work Phone: [facility] JosephErgbykfkzc37-78-6434 09:09-0400Body .18 kgGeorgi Carreon DPM Work Phone: [facility] JosephNwvbxlnksi85-60-3367 11:00-0500Body wcfoxd165.64 cmEast [facility]02-14-2025 11:00-0500Body mass index (BMI) [Ratio]31.1 kg/v3XmxrhacvzEast [place] [facility]02-14-2025 11:00-0500Body aaxnfv56.54 kgEast [facility]02-14-2025 11:00-0500Diastolic blood kycsdioc49 mm[Hg][facility]02-14-2025 11:00-0500 Heart fqua300 /[facility]02-14-2025 11:00-0500Systolic blood gponaste198 mm[Hg][facility]01-09-2025 09:59-0500 Body dyksah021.64 cmEast [facility]01-09-2025 09:59-0500Body mass index (BMI) [Ratio]31.8 kg/m9IobqwnkttEast [facility] Hospital01-09-2025 09:59-0500Body .35 kg[facility]01-09-2025 09:59-0500Diastolic blood jlzoxmmg22 mm[Hg][facility] 04-11-2024 09:59-0500Heart rate86 /[facility] 04-11-2024 09:59-0500Systolic blood uktzlsdr330 mm[Hg][facility]11-25-2024 09:54-0500Body mass index (BMI) [Ratio]33.12 kg/n2Ikfxx Jessica DO Work Phone: [facility] JosephYkstjrnynp36-16-0589 09:54-0500Body .27 kgCorey Jessica DO Work Phone: [phone] [place], [place] [address]Xshonaaqhd00-71-7671 09:54-0500Diastolic blood kgyfnttd18 mm[Hg]Sanjeev Jessica DO Work Phone: 1(722)[facility] [place] [address]-25-2024 09:54-0500Systolic blood leydebmz353 mm[Hg]Sanjeev Jessica DO Work Phone: 1(936)[facility] [place], [place] [address]Gxxdkuwbrm38-21-4884 14:03-0400Body twkobx163.[address]10-17-2024 14:03-0400Body mass index (BMI) [Ratio]31.45 kg/h2Mggqx[address]10-17-2024 14:03-0400Body weight 85.[address]10-02-2024 10:48-0400Body mass index (BMI) [Ratio]33.75 kg/l4Ofnqa Jessica DO Work Phone: 1(061)[address] [place], [place] 3645110-02-2024 10:48-0400Body amsrwb27.99 kgCorey Jessica DO Work Phone: 1(657)[address] [place] [address]-02-2024 10:48-0400Diastolic blood sdvmhyjw34 mm[Hg]Sanjeev Jessica DO Work Phone: 1(320)[address] [place], [place] 3645110-02-2024 10:48-0400Systolic blood tymmrgkb564 mm[Hg]Sanjeev Jessica DO Work Phone: 1(976)[address] [place], [place] 3645109-04-2024 11:46-0400Body mass index (BMI) [Ratio]32.78 kg/j9Psury Jessica DO Work Phone: 1(030)[address] [place], [place] 3645109-04-2024 11:46-0400Body jhistl63.36 kgCorey Jessica DO Work Phone: 1(974)[address] [place] [address]-04-2024 11:46-0400Diastolic blood ivqiaudj23 mm[Hg]Sanjeev Jessica DO Work Phone: 1(656)[facility] [place] [address]-04-2024 11:46-0400Systolic blood jyzfqxiw301 mm[Hg]Sanjeev Jessica DO Work Phone: [facility] JosephMpphtzssss44-68-2520 13:37-0400Body mass index (BMI) [Ratio]34.28 kg/n0Vennf Jessica DO Work Phone: [facility] JosephTpvembcpsv22-54-0985 13:37-0400Body ktypuj32.44 kgCorey Jessica DO Work Phone: [facility] JosephSwacwzjizc16-78-1959 13:37-0400Diastolic blood wkidtqle65 mm[Hg]Sanjeevbenji Suggso DO Work Phone: [facility] JosephDmghzqyiqx81-82-5968 13:37-0400Systolic blood msasznrv741 mm[Hg]Sanjeevbenji Lopez DO Work Phone: [facility] JosephLdpsvtcyax33-64-4481 10:05-0400Body .1 Ramon Metzger MD Work Phone: [facility]03-11-2024 10:05-0400Body mass index (BMI) [Ratio]38.94 kg/m2Rohit Metzger MD Work Phone: [facility]03-11-2024 10:05-0400Body .14 kgRohit Metzger MD Work Phone: [facility]02-13-2024 13:48-0500Body yvnbht426.1 Ramon Metzger MD Work Phone: [facility]02-13-2024 13:48-0500Body mass index (BMI) [Ratio]38.94 kg/m2Rohit Metzger MD Work Phone: [facility]02-13-2024 13:48-0500Body hegbbx184.14 Israel Metzger MD Work Phone: [facility]02-05-2024 13:10-0500Body ycvpwb967.1 Margarita CHAVIRA Work Phone: [facility]02-05-2024 13:10-0500Body mass index (BMI) [Ratio]38.94 kg/e4PssmfvbbJennie Colon FIELD RETURN REPAIRER-TECHNICAL PROFESSIONAL Work Phone: [facility] ii4b Xguemz33-39-4758 13:10-0500Body exfjqv746.14 kgJennie Colon FIELD RETURN REPAIRER-TECHNICAL PROFESSIONAL Work Phone: [facility] ii4b Tcxjmz85-72-5813 13:10-0500Diastolic blood mudcbzwc02 mm[Hg]Jennie Colon FIELD RETURN REPAIRER-TECHNICAL PROFESSIONAL Work Phone: [facility] ii4b Myhkuy17-02-2545 13:10-0500Heart rate 99 /minJennie oClon FIELD RETURN REPAIRER-TECHNICAL PROFESSIONAL Work Phone: [facility] ii4b Kodmtd47-45-1101 13:10-0500Systolic blood bxbboims467 mm[Hg]Jennie Colon FIELD RETURN REPAIRER-TECHNICAL PROFESSIONAL Work Phone: [facility] ii4b Cfogxz78-56-3217 11:43-0500Diastolic blood uvekweup46 mm[Hg]Kal Martinez FIELD RETURN REPAIRER-TECHNICAL PROFESSIONAL Work Phone: [facility] HospitalNCTech Sturgis HospitalComment on above:.04-14-2023 11:43-0500Systolic blood vgbiiicp356 mm[Hg]Kal Martinez FIELD RETURN REPAIRER-TECHNICAL PROFESSIONAL Work Phone: [facility] HospitalNCTech Sturgis HospitalComment on above:.04-14-2023 11:38-0500Body mass index (BMI) [Ratio]39.01 kg/p3Ifrgxclovis Martinez FIELD RETURN REPAIRER-TECHNICAL PROFESSIONAL Work Phone: [facility] ii4b Xkpyxy31-92-2346 11:38-0500Body puekkvrujrf41.6 [degF]Kalclovis Martinez FIELD RETURN REPAIRER-TECHNICAL PROFESSIONAL Work Phone: [facility] ii4b Oelwks52-79-1188 11:38-0500Body bcqkga425.32 kgPreetclovis Martinez FIELD RETURN REPAIRER-TECHNICAL PROFESSIONAL Work Phone: [facility] HospitalNCTech Nlwvzc12-17-0256 11:38-0500Heart rate 92 /minKal Martinez FIELD RETURN REPAIRER-TECHNICAL PROFESSIONAL Work Phone: [employer]01-12-2024 11:38-0500 Respiratory rate14 /minKal Martinez FIELD RETURN REPAIRER-TECHNICAL PROFESSIONAL Work Phone: [facility] CenterInspireMD01-12-2024 11:38-3576EpM7% (BldA) [Mass fraction]100 %Kal Martinez FIELD RETURN REPAIRER-TECHNICAL PROFESSIONAL Work Phone: [facility] CenterInspireMD10-02-2023 10:00-0400Body rersfo970.56 cmJohnathon Winter Other [employer] Other 990720-91-3095 10:00-0400Body mass index (BMI) [Ratio] 42.91 kg/i8SleejaJohnathon Winter Other [employer] Other 10-02-2023 10:00-0400Body sdioqf652.4 kgJohnathon Winter Other [employer] Other 10-02-2023 10:00-0400Diastolic blood pjejnlkb35 mm[Hg] Johnathon Winter Other [employer] Other 10-02-2023 10:00-0400Systolic blood mm[Hg] Johnathon Winter Other [employer] Other 08-30-2023 11:00-0400Body isfrvv098.56 cmJohnathon Winter Other [employer] Other 08-30-2023 11:00-0400Body mass index (BMI) [Ratio] 44.56 kg/v5LhdbhyJohnathon Winter Other [employer] Other 08-30-2023 11:00-0400Body luvpvx801.75 kgJohnathon Winter Other [employer] Other 08-30-2023 11:00-0400Diastolic blood mm[Hg]Johnathon Laura Other [employer] Other 08-30-2023 11:00-0658OkL0% (BldA) [Mass fraction]100 % Johnathon Laura Other nonorth [facility] [employer] Other 08-30-2023 11:00-0400Systolic blood xujgthzn411 mm[Hg] Johnathon Laura Other [employer] Other 07-11-2023 18:45-0400Body vdchal508.1 cmSshirley Garcia MD Work Phone: [employer]07-11-2023 18:45-0400Body mass index (BMI) [Ratio]43.93 kg/m2Roxie Garcia MD Work Phone: [facility] [employer]07-11-2023 18:45-0400Body fulyvbbfqob19 [degF]Roxie Garcia MD Work Phone: [facility] [employer]07-11-2023 18:45-0400Body smaqso791.75 kgRoxie Garcia MD Work Phone: [facility] [employer]07-11-2023 18:45-0400Diastolic blood sgnduonr310 mm[Hg]Roxie Garcia MD Work Phone: [facility] [employer]07-11-2023 18:45-0400Heart rate87 /minSshirley Garcia MD Work Phone: [facility] [employer]07-11-2023 18:45-0400 Respiratory rate16 /minSshirley Garcia MD Work Phone: [facility] [employer]07-11-2023 18:45-7879WkF3% (BldA) [Mass fraction]98 %Roxie Garcia MD Work Phone: [facility]07-11-2023 18:45-0400Systolic blood nbohmorb050 mm[Hg]Roxie Garcia MD Work Phone: [facility]10-03-2022 13:54-0400Diastolic blood tqxhfnif48 mm[Hg]Teo ALEJANDRO [facility]10-03-2022 13:54-0400Heart rate61 /minTokamini Thomas DOSENT[facility]10-03-2022 13:54-2082TbW9% (BldA) [Mass fraction]100 %Teo ALEJANDRO [facility]10-03-2022 13:54-0400Systolic blood kgqrukfb324 mm[Hg]Teo ALEJANDRO [facility]10-03-2022 11:46-0400Body kkcjyh632.1 cmTodd Martha MUSTAFASENTARA NORTHER[facility]10-03-2022 11:46-0400Body mass index (BMI) [Ratio]44.1 kg/m2 Teo Thomas DOSENT[facility]10-03-2022 11:46-0400Body cbdhfckudex84.7 [degF]Teo Thomas DOSENT[facility]10-03-2022 11:46-0400Body weight 120.2 kgTokamini Thomas DOSENT[facility]10-03-2022 11:46-0400Respiratory rate16 /minTodd Martha MUSTAFASENTARA [facility]05-19-2022 18:03-0400Diastolic blood eramzvxs08 mm[Hg]Radha Sanders MD Work Phone: [facility]imaVffojl06-77-7001 18:03-0400Heart rate92 /min Radha Sanders MD Work Phone: [facility] LimaLexwsx55-38-2792 18:03-0400Respiratory rate16 /William Sanders MD Work Phone: [facility] LimaKcjkks49-53-0966 18:03-6710PkS7% (BldA) [Mass fraction]96 %Radha Sanders MD Work Phone: [facility] LimaVjqafo05-10-8801 18:03-0400Systolic blood anfzmtzp964 mm[Hg]Radha Sanders MD Work Phone: [facility] LimaMqutmr70-91-1953 16:28-0400Body igrdpu269.1 cm Radha Sanders MD Work Phone: [address] [place], [place] [address]Cuvtlw24-42-2045 16:28-0400Body mass index (BMI) [Ratio]45.76 kg/z7FzowxnRadha Sanders MD Work Phone: [address] [place], [place] [address]Oufnzx68-53-0943 16:28-0400Body qmedpkmydkk91.6 [degF]Radha Sanders MD Work Phone: [facility] LimaMnqaml37-22-4302 16:28-0400Body .74 kg Radha Sanders MD Work Phone: [facility] Health Encounters Encounter DateEncounter TypeCare ProviderFacilityStart: 43-56-4673eoutseussu [facility] Ambulatory PPGStart: 02-07-2025 End: 97-69-0299Bmkmbgxxu encounterKy Nix MD Work Phone: [facility] NeuroSurgeryStart: 02-03-2025 End: 10-95-8755Hjmctwnbh Result EncounterCorey Jessica DO Work Phone: noms External Department UnsolicitedStart: 02-03-2025 End: 57-00-7198Sloledeem Result EncounterCorey Jessica DO Work Phone: noms External Department UnsolicitedStart: 01-29-2025 End: 82-07-0612Bhdoox flowsheetAnthony S Rusher DPM Work Phone: [facility] PodiatryStart: 01-29-2025 End: 51-31-5440Ytnjcn flowsheetAnthony S Rusher DPM Work Phone: noMD [facility] PodiatryStart: 01-29-2025 End: 02-16-3967Pimqlw outpatient visit 25 minutesAnthmomo Carreon DPM Work Phone: [facility] PodiatryComment on above:S/P foot surgery (Primary Dx); 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; Acquired deformity of right toe; [place] trejo rightStart: 01-29-2025 End: 56-67-5392iljemknofdHMJPJUI S RUSHERNot AvailableStart: 01-15-2025 End: 38-40-8457gibzezllvvVVCVWU NOEL JEZAKPWest [facility] Hospital HospitalStart: 01-06-2025 End: 54-01-4765zzdprvzerhQinpenzDre Rivera MDFacility:TERY Noel Start: 01-03-2025 End: 15-60-1734Rvjleg Kimmy Meyer FIELD RETURN REPAIRER-TECHNICAL PROFESSIONAL Work Phone: [facility] Behavior[facility] HealthStart: 11-05-2024 End: 56-69-0831Chtenk Kimmy Meyer FIELD RETURN REPAIRER-TECHNICAL PROFESSIONAL Work Phone: [facility]al HealthStart: 10-29-2024 End: 20-84-6006Musezo flowsheetWaltermomo Carreon DPM Work Phone: [facility] PodiatryStart: 10-29-2024 End: 05-06-7145Fcepyo flowsheetWaltermomo Carreon DPM Work Phone: [facility] PodiatryStart: 10-29-2024 End: 11-73-3297Bohrls follow up visit related to original pxGeorgi Carreon DPM Work Phone: [facility] PodiatryComment on above:S/P foot surgery (Primary Dx); Left foot painStart: 10-29-2024 End: 21-44-9943qrowcdcczeAEPPFSE S MARIA DEL ROSARIOHERNot AvailableStart: 10-21-2024 End: 83-74-9511apnjysvswsGSVOUTFransisca FajardoColumbia Regional Hospital HospitalStart: 09-17-2024 End: 87-56-3223Dkbgvl flowsheetAnthony S Rusher DPM Work Phone: [facility] PODIATRYStart: 09-17-2024 End: 23-42-0864Gvimyk flowsheetAnthony S Rusher DPM Work Phone: [facility] PODIATRYStart: 09-17-2024 End: 07-91-3920Pyspkg follow up visit related to original pxAnthony S Rusher DPM Work Phone: [facility] PODIATRYComment on above:S/P foot surgery (Primary Dx); Left foot painStart: 09-17-2024 End: 10-61-7801olzsmyvtcfJVCJNPQ S RUSHERNot AvailableStart: 09-04-2024 End: 85-54-3617Svqdpu flowsheetAnthony S Rusher DPM Work Phone: [facility] PODIATRYStart: 09-04-2024 End: 66-51-3223Becqkw flowsheetAnthony S Rusher DPM Work Phone: NOZN PODIATRYStart: 09-04-2024 End: 86-04-2278Wmneny follow up visit related to original pxAnthony S Rusher DPM Work Phone: NOBG PODIATRYComment on above:S/P foot surgery (Primary Dx); Left foot painStart: 09-04-2024 End: 72-75-8678phmrewdrnvEPAANPS S RUSHERNot AvailableStart: 09-02-2024 End: 00-15-9037lnehzsgnjwLZZXTY [facility] for Rehabilitationtart: 08-21-2024 End: 76-39-3446Qzabda flowsheetAnthony S Rusher DPM Work Phone: [facility] PODIATRYStart: 08-21-2024 End: 32-90-2931Btmegq flowsheetAnthony S Rusher DPM Work Phone: NOIL PODIATRYStart: 08-21-2024 End: 84-55-0292Havwwz follow up visit related to original pxAnthony S Rusher DPM Work Phone: noms PODIATRYComment on above:S/P foot surgery (Primary Dx); Left foot pain; Difficulty walking; Instability of left ankle jointStart: 08-21-2024 End: 26-94-6575ookwofftgsMMIFNJK Chelo MIXNot AvailableStart: 08-08-2024 End: 55-29-0339Zrbmvybzpv and management of inpatientWALTERMOMO CARREONMercer County Community Hospitaltart: 08-06-2024 End: 34-69-3052vbfdsstrsxVFSLYRMammoth Hospitaltart: 08-05-2024 End: 14-69-7515jakldvuhdqSVFKSFOur Lady of Mercy Hospital Start: 08-05-2024 End: 61-45-5406Qqrjaohlq for preprocedural cardiovascular examinationOhioHealth Shelby Hospitaltart: 07-31-2024 End: 55-11-2496Vxnjfgu encounter procedureSouth[facility] Pre-Ad[facility] Testing [address] [place] [address] - Pre AdmitComment on above:Preop examination (Primary Dx); Hypertension, unspecified typeStart: 07-31-2024 End: 69-15-0341Tadnxcspwtezj examination done[address]tart: 07-31-2024 End: 31-89-2490Dqumfr flowsDuane Chelo Carreon DPM Work Phone: noms PODIATRYStart: 07-31-2024 End: 23-93-9444Dekocp flowsDuane Chelo Carreon DPM Work Phone: noms PODIATRYStart: 51-05-0815Dlqvodcka for other preprocedural examinationDiley Ridge Medical Centertart: 07-31-2024 End: 04-78-1602Xsbneu outpatient visit 25 minutesAnthmomo Chelo Velma DPM Work Phone: noms PODIATRYComment on above:Hallux valgus of left foot (Primary Dx); Instability of left foot joint; Tailor's bunion of left foot; Acquired deformity of left toe; 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; Equinus contracture of left ankleStart: 07-31-2024 End: 33-38-5184pthukgydfaKSNGZGI S [facility] Hospitaltart: 07-31-2024 End: 59-22-5306oekedwowbpBGZDZ M SOMMERSMercer County Community Hospitaltart: 07-29-2024 End: 55-08-4620itsqcxfixpWblsllduoOhioHealth [facility] Work Phone: Start: 07-29-2024 End: 16-50-5947Jzdsytl encounter procedureFormerly [facility] GroupThe [facility] Work Phone: Start: 07-22-2024 End: 88-17-4777Bbeqyms encounter procedureCorey Jessica DO Work Phone: [facility] Work Phone: Start: 07-22-2024 End: 71-71-5573Gkaptqdy preventive med est patient 40-64yrsCorey Jessica DO Work Phone: noms BCP OBComment on above:Well woman exam with routine gynecological exam; Breast cancer screening by mammogramStart: 06-66-7204Mnu-patient / Non-visit Formerly [facility] Physician [facility] Work Phone: Start: 07-22-2024 End: 44-74-4375Pbcgoa flowsheetCorey Jessica DO Work Phone: noms BCP OBStart: 07-22-2024 End: 52-48-9876Vuhjaq flowsheetCorey Jessica DO Work Phone: noms BCP OBStart: 07-22-2024 End: 50-41-4503Lssfzissw Result EncounterCorey Jessica DO Work Phone: noms External Department UnsolicitedStart: 07-22-2024 End: 02-92-2945dgussouhddWXONK FAZIONot AvailableStart: 07-17-2024 End: 22-75-7087rtrjxtrrteRBDLLNQ S [facility] Hospitaltart: 07-17-2024 End: 50-25-7412ojqgnmtngeLCGCL FRANKProMedica Fremont HospitalStart: 07-16-2024 End: 25-73-8050Itqrrr flowsAlfredmomo Chelo Carreon DPM Work Phone: noms PODIATRYStart: 07-16-2024 End: 04-89-1247Gcxgfj flowsheetGeorgi Chelo Carreon DPM Work Phone: noms PODIATRYStart: 07-16-2024 End: 73-16-4813Jmbypf outpatient visit 25 minutesAnthmomo Carreon DPM Work Phone: noms PODIATRYComment on above:Hallux valgus of left foot (Primary Dx); Instability of left foot joint; Tailor's bunion of left foot; Acquired deformity of left toe; 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; Equinus contracture of left ankle; Left foot pain; Vitamin D insufficiencyStart: 07-16-2024 End: 12-20-1830ggaobmoxwiPXXKUED S RUSHERNot AvailableStart: 54-22-2774Jdp- patient / Non-visitFirfatuma Physician Group-[facility] Work Phone: Start: 07-03-2024 End: 74-40-8344iexmlcfrprYNPHVN [facility] Start: 74-62-6103Evkyoefzd department patient visitJohnathon Winter Facility:[facility] HospitalStart: 05-29-2024 End: 46-30-2520zncuovhddySIYLSMemorial Hospitaltart: 05-17-2024 End: 72-43-4159cqtycboqpnTdhehxdosUniversity Hospitals St. [facility] Work Phone: Start: 05-17-2024 End: 70-33-6976Fhuidmw encounter procedureYohan Physician Group-[facility] Work Phone: Start: 05-08-2024 End: 79-61-7305fxyrskbruoTUQDIUvalde Memorial Hospital HospitalStart: 04-15-2024 Non-patient / Non-visitFormerly [facility] Physician [facility] Work Phone: Start: 76-45-3620Mbdulrv encounter statusOur Lady of [facility] - Andersontart: 04-11-2024 End: 58-50-2541pugomfoluuVceeznsesOhioHealth Marion General Hospital Work Phone: Start: 04-11-2024 End: 92-64-9630Ywvmvvwbn for general adult medical examination without abnormal findingsOur Lady of Mer[facility] Hospital - Andersontart: 04-11-2024 End: 59-55-4197Svwpjtb encounter procedureFormerly [facility] Physician GroupThe [facility] Hospital Work Phone: Start: 04-08-2024 End: 23-74-1548mtyglilpylGMKNMUNC Health Rex Holly Springstart: 04-01-2024 End: 64-14-6597Kiytfxklp Result EncounterCorey Jessica DO Work Phone: noms External Department UnsolicitedStart: 04-01-2024 End: 05-58-4772Xuqmjpknq Result EncounterCorey Jessica DO Work Phone: noms External Department UnsolicitedStart: 04-01-2024 Non-patient / Non-visitFormerly [facility] Physician [facility] Work Phone: Start: 03-22-2024 End: 23-20-6916Zyjxlauqkplrh Bobby Logan RNDojulianna Arthur [facility] - Medical OncologyStart: 03-13-2024 End: 66-54-1395Pirxctldl Result EncounterCorey Jessica DO Work Phone: noms External Department UnsolicitedStart: 03-13-2024 End: 91-90-5797Wpzgonugm Result EncounterCorey Jessica DO Work Phone: noms External Department UnsolicitedStart: 02-26-2024 End: 38-00-1635Rhpoee flowsheetCorey Jessica DO Work Phone: noms BCP OBStart: 02-26-2024 End: 05-48-1056Mljhxt flowsheetCorey Jessica DO Work Phone: noMS BCP OBStart: 02-26-2024 End: 28-63-1606Zovkbp outpatient visit 15 minutesCorey Jessica DO Work Phone: noms BCP OBComment on above:Breast painStart: 02-26-2024 End: 37-32-0612wtwewbqmhaZBZKS FAZIONot AvailableStart: 04-66-6151Rvv-patient / Non-visitFirelands Physician Group-[facility] Work Phone: Start: 01-26-2024 End: 81-66-2448UclkrwChong Liang MD Work Phone: [facility] Sign InStart: 01-26-2024 End: 98-33-5667Awedktlgov and management of inpatientKRISTEN SNYDERProMedica Kellogg HospitalStart: 01-25-2024 End: 42-84-2002qegxzabltxCSNNXU PALAKODETIProMedica Burley HospitalStart: 96-51-7777Ped-patient / Non-visitFirelands Physician Group-[facility] Work Phone: Start: 01-18-2024 End: 13-46-1361Asjqdpjag to establishmentMetro Pat Phone Call Provider 3 [facility] Clinictart: 01-18-2024 End: 67-81-2737Dnvrsqxkbk and management of inpatientMARCIA E BRAUNProMedica Kellogg HospitalStart: 61-93-5523Hvp-patient / Non-visitFirelands Physician Group-[facility] Work Phone: Start: 01-14-2024 End: 65-82-1819Oviytmtjt department patient visitMarvin StalterFacility:Jennifer HospitalStart: 01-03-2024 End: 62-95-5561Kzcrgd flowsheetCorey Jessica DO Work Phone: noms BCP OBStart: 01-03-2024 End: 23-24-5991Vxbjni flowsheetCorey Jessica DO Work Phone: noms BCP OBStart: 01-03-2024 End: 80-42-5985Uqgmcp follow up visit related to original pxCorey Jessica DO Work Phone: noms BCP OBComment on above:Postop check; Low ferritin levelStart: 12-28-2023 End: 74-93-7848Qipknfnqj Result EncounterCorey Jessica DO Work Phone: noms External Department UnsolicitedStart: 12-28-2023 End: 01-50-4870Uurhayctj Result EncounterCorey Jessica DO Work Phone: noms External Department UnsolicitedStart: 12-22-2023 End: 91-27-2253Ucbypdodr Result EncounterCorey Jessica DO Work Phone: noms External Department UnsolicitedStart: 12-22-2023 End: 24-25-7716Dpzjhifbl Result EncounterCorey Jessica DO Work Phone: noms External Department UnsolicitedStart: 12-08-2023 End: 42-93-0215Xydeimrcp Result EncounterCorey Jessica DO Work Phone: noms External Department UnsolicitedStart: 12-08-2023 End: 03-95-8358Rolwrkgrj Result EncounterCorey Jessica DO Work Phone: noms External Department UnsolicitedStart: 12-06-2023 End: 38-21-7398czfegpgiltFznmv FazioFirelOhio State Health System Ctr Work Phone: Start: 12-06-2023 End: 62-33-4750Oamfymhb ReferredDO Sanjeev Jessica Work Phone: [facility] [place] Work Phone: Start: 12-06-2023 End: 18-68-6783Jsfzpra encounter procedureCorey Jessica DO Work Phone: noms [facility] OBComment on above:Pre-op examination; Menorrhagia with regular cycle; Abnormal uterine bleeding (AUB); Pelvic pain; Hormone disorderStart: 12-06-2023 End: 85-83-5161Qgykvguyigpnf examination doneCorey Jessica DO Work Phone: noms HealthcareStart: 00-95-8727Liz-patient / Non-visitDO Sanjeev Jessica Work Phone: [facility] Physician [facility] Professional [facility] Work Phone: Start: 11-29-2023 End: 15-40-5502Ihjctf flowsheetCorey Jessica DO Work Phone: noms [facility] OBStart: 11-29-2023 End: 69-37-9677Rtsaiw flowsheetCorey Jessica DO Work Phone: noms [facility] OBStart: 11-29-2023 End: 75-33-2050Suqwdnfkv Result EncounterCorey Jessica DO Work Phone: noms External Department UnsolicitedStart: 11-29-2023 End: 38-96-4157Gxhbaf outpatient visit 15 minutesCorey Jessica DO Work Phone: noms [facility] OBComment on above:Encounter to discuss procedure; Menorrhagia with regular cycle; Decreased libidoStart: 11-15-2023 End: 37-47-2383Lukpibqxr Result EncounterCorey Jessica DO Work Phone: noms External Department UnsolicitedStart: 11-15-2023 End: 35-91-4294Rguwccqto Result EncounterCorey Jessica DO Work Phone: noms External Department UnsolicitedStart: 10-25-2023 End: 48-25-0335Kuyslxhhy Result EncounterCorey Jessica DO Work Phone: noms External Department UnsolicitedStart: 10-25-2023 End: 37-32-4820Lepmpwngq Result EncounterCorey Jessica DO Work Phone: noms External Department UnsolicitedStart: 10-25-2023 Non-patient / Non-visitDO Sanjeev Suggso Work Phone: [facility] Phys[facility] GroupValley Medical Center Professional Co Work Phone: Start: 08-23-2023 End: 79-41-0080otgpxxqqmvRainyw E BraunFacility:[facility] Hospitaltart: 75-37-8452Zzsdag [facility] Spine CareComment on above: Lumbar radiculopathy, chronic (Primary Dx); Herniated lumbar intervertebral discStart: 06-12-2023 End: 45-15-0215Ggevoc outpatient visit 10 Evaristo Smith MD Work Phone: [facility] Sp[facility] SurgeonsComment on above: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) Start: 06-09-2023 End: 92-69-6982Gqpddvypk Result EncounterCorey Jessica DO Work Phone: noms External Department UnsolicitedStart: 06-09-2023 End: 23-70-5982Okhxuqccs Result EncounterCorey Jessica DO Work Phone: noms External Department UnsolicitedStart: 05-24-2023 Orders Tameka Colon FIELD RETURN REPAIRER-TECHNICAL PROFESSIONAL Work Phone: [facility] NeuroSurgeryComment on above: Herniated lumbar intervertebral disc (Primary Dx); Lumbar radiculopathy, chronicStart: 05-23-2023 End: 61-86-3754Gjhwnefwk Result EncounterCorey Jessica DO Work Phone: noms External Department UnsolicitedStart: 05-23-2023 End: 10-94-7140Vbcodyqah Result EncounterCorey Jessica DO Work Phone: noms External Department UnsolicitedStart: 05-23-2023 End: 52-25-9201eybnjgxhheAtvnst Roger ZieberMartin Memorial Hospital Work Phone: Start: 05-23-2023 End: 51-96-1074Rwtcopnc ReferredMD Tee Leónfernando Work Phone: [facility] Spec [place] HospStart: 05-16-2023 End: 25-83-0156Bfduyy outpatient new 30 Evaristo Smith MD Work Phone: [facility] Sp[facility] SurgeonsComment on above: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); Finger injury, right, initial encounterStart: 34-63-9520Plfvyx Tameka Colon FIELD RETURN REPAIRER-TECHNICAL PROFESSIONAL Work Phone: ProLa[facility] Physicians NeuroSurgeryComment on above: Herniated lumbar intervertebral disc (Primary Dx)Start: 05-10-2023 End: 90-09-3173kvdmylutsqIidagw Braun Other [place] [employer] Other Start: 05-10-2023 End: 40-02-5489Dxhfqruar Result EncounterCorey Jessica DO Work Phone: noms External Department UnsolicitedStart: 05-10-2023 End: 45-91-4252Czyadoprh Result EncounterCorey Jessica DO Work Phone: noms External Department UnsolicitedStart: 05-10-2023 Encounter by computer Ranjeet WinterUC [facility] Chester Hospital ClinicStart: 05-10-2023 Non-patient / Non-visitMD Tee Peterson Work Phone: [facility] Physician Group-[facility] Professional [employer] Work Phone: Start: 05-08-2023 End: 32-25-8887Rpjadn outpatient new 45 Shayy Colon FIELD RETURN REPAIRER-TECHNICAL PROFESSIONAL Work Phone: ProLaurel O[facility] Physicians Spine CareComment on above:Lumbar radiculopathy, chronic (Primary Dx); Urinary incontinence without sensory awareness; Sensory deficit, left; Spinal stenosis of lumbar region with neurogenic claudicationStart: 05-04-2023 End: 99-00-2278Gtnusw outpatient visit 10 minutesGrant T Okeefe DRY CHARGE PROCESS ATTENDANT Work Phone: noms FB ORTHOPAEDICSComment on above: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); Pain in finger of right handStart: 04-28-2023 End: 40-31-1696Fdnsiewqq Result EncounterCorey Jessica DO Work Phone: noms External Department UnsolicitedStart: 04-28-2023 End: 46-18-0230Haxhztyac Result EncounterCorey Jessica DO Work Phone: noms External Department UnsolicitedStart: 04-19-2023 End: 38-70-8452tiahjvjwjhCjjyjcez Ball Other nonorth [facility] [employer] Other Start: 28-41-3790Kofhbiojd encounterBebere ArchibaldNiru [employer] [facility] ClinicStart: 13-84-6693Wpdvkn OnlyCarey Rodriguez RMAProMedica Spine CareComment on above:Back pain, unspecified back location, unspecified back pain laterality, unspecified chronicity (Primary Dx)Start: 04-14-2023 End: 25-20-0953Tgabwl outpatient visit 15 minutesKal CHAVIRA Work Phone: [facility] OregonComment on above:Acute left-sided low back pain with left-sided sciatica (Primary Dx)Start: 04-12-2023 End: 11-40-2384yivyzcafvsUgnbid Braun Other nonorth [facility] [employer] Other Start: 84-46-8144Uvfgkjvdi encounterMarcia Renato R[facility] ClinicStart: 04-11-2023 End: 45-05-4845golwwnjszjNgiocg Laura Other nonorth [facility] [employer] Other Start: 61-02-9180Kokzjxtxc encounterMarcimina Gross [facility] ClinicStart: 04-10-2023 End: 36-29-1491bnmujurydjAudhjb Laura Other [employer] Other Start: 66-28-0986Ilyyjxhlm by computer linkJohnathon Lyn [facility] ClinicStart: 01-30-2023 End: 26-69-7089dsgwpelssuFmnxem Winter Other [facility] [employer] Other Start: 44-59-1615Bzrbubdgd encounterMarcimina Lyn Medical ClinicStart: 01-02-2023 End: 12-34-0099asspsfaekiFdzaqc Winter Other [facility] [employer] Other Start: 97-85-8216Qcwkmf outpatient visit 15 minutes Johnathon Lyn [facility] ClinicStart: 12-09-2022 End: 06-06-6618bndlwpirycPbnpvo Winter Other [facility] [employer] Other Start: 56-61-1996Wszyxfelf encounterMarcimina Lyn Medical ClinicStart: 12-08-2022 End: 57-50-2801xukkleovcmQagjqh Winter Other [facility] [employer] Other Start: 63-00-1993Rlekaycwo encounterMarcimina Lyn Medical ClinicStart: 2022 End: 47-04-5175cflsvkcahlJosbqi Winter Other no[facility] Other Start: 31-18-8280Laucta outpatient new 30 minutes Johnathon Lyn [facility] ClinicStart: 10-11-2022 End: 01-27-9039Uxdknxnmd department patient visitPAUL OLIVER MEMORIAL HOSPITALMina St. Anthony's Hospitaltart: 10-11-2022 End: 93-51-1193Avuitucmp department patient visitSyed Delores Garcia MD Work Phone: [facility] Emergency DepartmentComment on above:Sprain of right ankle, unspecified ligament, initial encounter (Primary Dx)Start: 07-11-2022 End: 97-08-1907xhukqtbgbmFY SANJEEV JESSICA .Facility:R9Vajiv: 04-29-2022 End: 22-08-0904fkhtvsqmuwQW SANJEEV JESSICA .Facility:F3Zvset: 02-16-2022 End: 65-89-1085Nwydjfcyr department patient visitProMedica Defiance Regional Hospitaltart: 01-03-2022 End: 13-10-4583Fsnkrfhop department patient visitMAROhioHealth Doctors Hospitaltart: 01-03-2022 End: 98-95-5683Bbajgbmww department patient visitTodd Mina [facility] EDComment on above:Gastroenteritis (Primary Dx)Start: 08-19-2021 End: 53-83-3970Pcwcjkrdb department patient visitRadha Sanders MD Work Phone: [facility] EDComment on above:Herniated lumbar intervertebral disc (Primary Dx) Procedures DateProcedureProcedure DetailPerforming ClinicianStart: 78-67-6524XUF T3 FREE Sanjeev Jessica DO Work Phone: Start: 27-93-3607HQU THYROID STIM HORMONECorey Jessica DO Work Phone: Start: 77-06-9385DPL THYROXINE (T4)Sanjeev Jessica DO Work Phone: Start: 03-79-6639MGB GLUCOSE BLOODCorey Jessica DO Work Phone: Start: 20-35-6935Amdbq foot complete minimum 3 views eGorgi Carreon DPM Work Phone: Start: 25-81-0024Sgbks foot complete minimum 3 views Georgi Carreon DPM Work Phone: Start: 43-05-6284Pdehs foot complete minimum 3 views Georgi Carreon DPM Work Phone: Start: 64-39-5859Ogzxn foot complete minimum 3 views Georgi Carreon DPM Work Phone: Start: 07-22-2024 End: 80-60-6199Atjel dip stick/tablet rgnt non-auto w/o micrscpCorey Jessica DO Work Phone: Start: 23-34-0514ZVE,APTIMA HPV,AGE GDLNCorey Jessica DO Work Phone: Start: 19-57-8972Fydutrscmrk observation [Identifier] in Cervix by Cyto John Meyer FIELD RETURN REPAIRER-TECHNICAL PROFESSIONAL Work Phone: Start: 42-47-6974Cyynp foot complete minimum 3 views Georgi Carreon DPM Work Phone: Start: 83-20-5034MVD HEMOGLOBIN S5NLxbhj Jessica DO Work Phone: Start: 58-19-1430ZW TOMOSYNTHESIS DIAGNOSTIC BICorey Jessica DO Work Phone: Start: 96-72-9195WV BREAST BI LIMITEDCorey Jessica DO Work Phone: Start: 25-91-4083Jdeeaxhsweuzby vitamin b-12Corey Jessica DO Work Phone: Start: 03-87-5831EDG CBC WITH AUTO DIFFCorey Jessica DO Work Phone: Start: 05-36-7375ECY HEMOGLOBIN C3ZKsxsd Jessica DO Work Phone: Start: 61-07-9254Cyjab test visual color cmprsn methsCorey Jessica DO Work Phone: Start: 97-80-5442GRV DHEA SULFATECorey Jessica DO Work Phone: Start: 22-61-9635ACNGX SEX BINDING HORMONE (SHBG), TESTOSTERONE, FREE AND BIOAVAILABLECorey Jessica DO Work Phone: Start: 96-89-8012STGBFV TESTOSTERONE FREE/TOT EQUILIB Sanjeev Jessica DO Work Phone: [phone]: 89-10-6855SE TOMOSYNTHESIS DIAGNOSTIC LTCorey Jessica DO Work Phone: Start: 03-41-1489CM PELVIS W/ TRANSVAGINALCorey Jessica DO Work Phone: [phone]: 88-33-5623MNC CBC WITH AUTO DIFFCorey Jessica DO Work Phone: [phone]: 64-20-2703CQS THYROID STIM HORMONECorey Jessica DO Work Phone: [phone]: 01-28-7373YYL THYROXINE (T4) FREECorey Jessica DO Work Phone: Start: 34-35-6680XOT APTTCorey Jessica DO Work Phone: [phone]: 34-60-6747NIAWHU PROTHROMBIN TIME INR W/O COUM Sanjeev Jessica DO Work Phone: [phone]: 50-11-0157YHE PREG QUANT HCGCorey Jessica DO Work Phone: [phone]: 46-12-2536IY POST BIOPSY LTCorey Jessica DO Work Phone: Start: 09-51-9504ZD STEREOTACTIC LOC LTCorey Jessica DO Work Phone: [phone]: 79-08-4020PZ POST BIOPSY LTCorey Jessica DO Work Phone: Start: 59-87-4922HD STEREOTACTIC LOC LTCorey Jessica DO Work Phone: Start: 41-03-9913ZX DIAGNOSTIC MAMMO UNILAT LTCorey Jessica DO Work Phone: Start: 01-51-4863AF BREAST LT LIMITEDCorey Jessica DO Work Phone: Start: 85-86-4621HQI C-PEPTIDECorey Jessica DO Work Phone: Start: 25-67-6837PDV DHEA SULFATECorey Jessica DO Work Phone: Start: 67-24-7235ANZ ESTRONE(E1)Sanjeev Jessica DO Work Phone: Start: 87-07-1381HCB PROGESTERONECorey Jessica DO Work Phone: Start: 15-67-7479RSP T3 FREECorey Jessica DO Work Phone: Start: 03-83-7416BHE T3 REVERSECorey Jessica DO Work Phone: Start: 77-52-8244PEV THYROID STIM HORMONECorey Jessica DO Work Phone: Start: 28-93-5103CFK THYROXINE (T4)Sanjeev Jessica DO Work Phone: Start: 63-19-8126YJQ THYROXINE (T4) FREECorey Jessica DO Work Phone: Start: 69-75-3420YPN FERRITINCorey Jessica DO Work Phone: Start: 12-78-8151VCWRIBXK, FREE DIALYSIS, LCMSCorey Jessica DO Work Phone: Start: 11-36-4397SNOLB SEX BINDING HORMONE (SHBG), TESTOSTERONE, FREE AND BIOAVAILABLECorey Jessica DO Work Phone: Start: 37-00-0898IJI HEMOGLOBIN A4WLgjom Jessica DO Work Phone: Start: 28-70-4100EANISS TESTOSTERONE FREE/TOT EQUILIB Sanjeev Jessica DO Work Phone: Start: 18-29-7446NCP ESTRONECorey Jessica DO Work Phone: Start: 56-94-2758KYW GLUCOSE BLOODCorey Jessica DO Work Phone: Start: 95-00-2412FYU INSULINCorey Jessica DO Work Phone: Start: 36-77-4124WIC THYROID ANTIBODIESCorey Jessica DO Work Phone: Start: 33-43-3417ZOG VITAMIN D 25 OHCorey Jessica DO Work Phone: Start: 01-34-7317GQ SEROTONINCorey Jessica DO Work Phone: Start: 17-65-1360NK TOMOSYNTHESIS SCREENING BICorey Jessica DO Work Phone: Start: 21-59-0064Jnvxk ankle complete minimum 3 views Bailee Lindanings FIELD RETURN REPAIRER - TECHNICAL PROFESSIONAL Work Phone: Start: 90-55-4509Kkpfwjoxex microscopic onlyMorgan Cristian FIELD RETURN REPAIRER - DRY CHARGE PROCESS ATTENDANT Work Phone: Start: 25-48-0846Brvxw dip stick/tablet rgnt auto w/o microscopyMorgan Cristian FIELD RETURN REPAIRER - DRY CHARGE PROCESS ATTENDANT Work Phone: Start: 79-20-6974Yx abdomen & pelvis w/contrast materialMorgan Cristian FIELD RETURN REPAIRER - DRY CHARGE PROCESS ATTENDANT Work Phone: Start: 77-36-7386Hpjjl of lipaseMorgan Cristian FIELD RETURN REPAIRER - DRY CHARGE PROCESS ATTENDANT Work Phone: Start: 64-48-9012Wopwn depression screening assessment Serina Rodriguez RMAStart: 27-63-6428Um lumbar spine w/o contrast Nani Sanders MD Work Phone: Plan of Treatment DateCare ActivityDetailAuthorStart: 90-43-8388Nezrqacdw for malignant neoplasm of cervixPap SmearProLaurel Oaks Behavioral Health Center Health SystemStart: 60-66-9247Gnkmhie Screening Tobacco ScreeningProPaulding County Hospitalca [facility] SystemStart: 63-75-1714Snsabiq Screening Tobacco ScreeningProPaulding County Hospitalca [facility] SystemStart: 73-40-2306Jjpla BMI Screening Adult BMI ScreeningProSt. Anthony'S Hospital SystemStart: 43-78-9453Fraxk BMI Screening Adult BMI ScreeningProSt. Anthony'S Hospital SystemStart: 49-96-1536Yduqnnz Screening Tobacco ScreeningProSt. Anthony'S Hospital SystemStart: 07-29-2025 End: 72-12-6172Kejvbja encounter procedureNO BCP OBStart: 04-18-2025 End: 35-79-0113Jehbubk encounter jtkurhypl35/16/2026 11:00 AM EST Office Visit [facility] [address] [place] [address] Georgi Carreon, DPM [address] [place] [address] NOMChelo [facility] PodiatryStart: 04-02-2025 End: 78-77-5171Vvllhfr encounter /31/2025 10:30 AM EST Office Visit [facility] [address] [place] [address] Tee Carreon, DPM [address] [place] [address] [facility]iatryStart: 03-10-2025 End: 84-72-6842Kklfxyb encounter wciaeoabv30/08/2025 11:00 AM EST Office Visit [facility] [address] [place] [address] Georgi Carreon, DPM [address] [place] [address] [facility]iatryStart: 01-29-2025 End: 32-29-9407Jflvfst encounter procedureNOMS [place] PodiatryComment on above: ArrivedStart: 46-52-9662Lhgos BMI ScreeningAdult BMI ScreeningSelect Medical [facility] Hospital SystemStart: 50-81-9909Vqkauda ScreeningTobacco ScreeningSelect Medical [facility] Hospital System Start: 52-62-1685Kqaai BMI ScreeningAdult BMI ScreeningSelect Medical [facility] System Start: 41-19-3704Zalrvco ScreeningTobacco ScreeningSelect Medical [facility] Hospital SystemStart: 97-93-4527Tsxlqsweu vaccinationInfluenza VaccineProSt. Anthony'S Hospital SystemStart: 10-29-2024 End: 96-98-1075Gsjfytv encounter procedureNOMS PODIATRYComment on above: ArrivedStart: 09-18-2024 End: 18-28-5739Mcmxazm encounter gazcuplwn38/18/2025 1:15 PM EDT Office Visit [facility] [address] [place] [address] Georgi Carreon, SINCER[place] [address] [place], [place] [id number] [facility]OMS PODIATRYStart: 09-17-2024 End: 76-26-7175Yrfuxda encounter yqrbtcpil77/17/2025 9:45 AM EDT Office Visit [facility] [address] [place] [address] Georgi Carreon DPM [address] [place], [place] [id number] ArrivedNOMS PODIATRYComment on above:ArrivedStart: 09-04-2024 End: 33-23-6530Yaknhgg encounter procedureNOMS PODIATRYComment on above: ArrivedStart: 08-21-2024 End: 92-19-9490Vfmzzrn encounter procedureNOMS PODIATRYComment on above: ArrivedStart: 08-08-2024 End: 10-13-4600Byyzwlvyj to same day surgery bfzbvw6808/08/2024 7:30 AM EDT - 08/08/2024 10:30 AM EDT Surgery [facility] - Surgery [address] [place] [phone] Georgi Carreon, S[place] [address] [place], [place] [id number] FUSION [place] & CPT 99762 [01223 (CPT )][facility] - Surgery Comment on above:FUSION [place] & CPT 72694 [40768 (CPT )]Start: 08-08-2024 End: 08-57-8180Dmuoi hallux valgus w/sesmdc w/1metar medial cnfFUSION LAPIDUS left foot hallux valgus, deformity of 2nd & 5th metatarsal, acquired deformity of toe, equinus contracture, 5th metatarsal tailors bunion 08/08/2024 7:[facility]: 08-08-2024 End: 71-34-3275Tvijxxbwlizhb recessionREPAIR MUSCLE RECESSION GASTROCNEMIUS left foot hallux valgus, deformity of 2nd & 5th metatarsal, acquired deformity of toe, equinus contracture, 5th metatarsal tailors bunion 08/08/2024 7:30 AM EDT [place] [facility]Start: 08-08-2024 End: 19-38-3340Ihvwff w/wo lngth shrt/corrj metar xcp 1st eaOSTEOTOMY JENNIFER METATARSAL left foot hallux valgus, deformity of 2nd & 5th metatarsal, acquired deformity of toe, equinus contracture, 5th metatarsal tailors bunion 08/08/2024 7:30 AM [facility] SURGERYStart: 08-08-2024 End: 66-90-2013Ldmcrb angular dfrm toe soft tiss px onlyEXCISION SOFT TISSUE FOOT left foot hallux valgus, deformity of 2nd & 5th metatarsal, acquired d eformity of toe, equinus contracture, 5th metatarsal tailors bunion 08/08/2024 7:30 AM [facility] SURGERYStart: 23-15-1617Qncvjzbjaj hospital visit by juxxcyoot60/08/2025 7:30 AM EDT Hospital Encounter [facility] - Surgery [address] [place] [phone] Georgi Carreon, DPM [address] [place], [place] [id number] [facility] - SurgeryStart: 07-31-2024 End: 58-30-2915Idqcmlm encounter procedureNOMS FH PODIATRYComment on above: ArrivedStart: 07-22-2024 End: 47-65-0532Vvogaye encounter procedureNOMS BCP OBComment on above:Arrived Start: 07-22-2024 End: 68-32-5001RL Breast - bilateral ScreeningBilateral screening mammogram Imaging Routine Breast cancer screening by mammogram Expected: 07/22/2024 (Approximate), Expires: 09/21/2025NOMS HealthcareComment on above:Expected: 07/22/2024 (Approximate), Expires: 09/21/2025Start: 07-16-2024 End: 25-68-2086Tisdepk encounter ottmbtnpo16/15/2025 9:00 AM EDT Office Visit [facility] [address] [place] [phone] Georgi Carreon, DPM [address] [place] [address] ArrivedNOMS PODIATRYComment on above:ArrivedStart: 56-91-0038Nsoaf BMI ScreeningAdult BMI ScreeningProMedica Health SystemStart: 63-68-3277Jkvflss ScreeningTobacco ScreeningProMedica Health SystemStart: 10-58-4268Nxbsj BMI ScreeningAdult BMI ScreeningProPaulding County Hospitalca Health SystemStart: 12-30-6438Uijtnqe ScreeningTobacco ScreeningProMedica Health SystemStart: 61-75-6517Yodwz BMI ScreeningAdult BMI ScreeningProMedica Health SystemStart: 29-68-8016Fgmrvqq ScreeningTobacco ScreeningProMedica Health SystemStart: 37-68-9144Wrbah BMI ScreeningAdult BMI ScreeningProMedica Health SystemStart: 23-92-3692Ftyrdvk ScreeningTobacco ScreeningProPaulding County Hospitalca Health SystemStart: 02-26-2024 End: 11-89-3265WN Breast - bilateral DiagnosticBilateral diagnostic mammogram Imaging Routine Breast pain Expected: 02/26/2024 (Approximate), Expires: 04/27/2025[facility] Work Phone: comment on above:Expected: 02/26/2024 (Approximate), Expires: 04/27/2025Start: 02-26-2024 End: 60-74-1660Onyjgrl encounter suksnpptl59/25/2024 10:00 AM EST Office Visit [facility] BCP OB [address] [phone] Sanjeev Lopez DO [address] [place] [address] ArrivedNOMS BCP OBComment on above:ArrivedStart: 01-25-2024 End: 46-61-1392Enxpcmqxv to same day surgery cuojib7901/25/2024 10:00 AM EDT - 01/25/2024 1:59 PM EDT Surgery [facility] [address] [place] [address] [place] [address] PANNICULECTOMYProMedica Utica Psychiatric CenterComment on above:PANNICULECTOMYStart: 01-25-2024 End: 95-38-6918ZPGGVQKAAUEBGHRBECGVDBBWQFOU Panniculitis affecting regions of neck and back, site unspecified 01/25/2024 10:00 AM [facility] Start: 12-82-5563Dquxmgdcpv hospital visit by ahzdwxitx04/24/2024 10:00 AM EDT Hospital Encounter [facility] Surgery [address] [place] [address], [address] [place] [address] [facility]: 01-03-2024 End: 50-38-0723Hygeqgt encounter procedureNOMS BCP OBComment on above:Arrived Start: 12-22-2023 End: 66-43-5806Yjwyqoa encounter uaozbyfon61/20/2024 10:00 AM EDT Procedure Visit [facility] EXT DEP Sanjeev Lopez, [address] [place] [address] [facility]S EXT DEPStart: 12-06-2023 End: 58-62-3621F-peptideC-peptide Lab Routine Hormone disorder Expected: 12/06/2023 (Approximate), Expires: 12/05/2024NOMS HealthcareComment on above: Expected: 12/06/2023 (Approximate), Expires: 12/05/2024Start: 12-06-2023 End: 99-79-8439Vckpffug freeCortisol, free Lab Routine Hormone disorder Expected: 12/06/2023 (Approximate), Expires: 12/05/2024NOMS HealthcareComment on above:Expected: 12/06/2023 (Approximate), Expires: 12/05/2024Start: 12-06-2023 End: 21-39-3173Xxfrhyy [Mass/volume] in Serum or PlasmaGlucose, random Lab Routine Hormone disorder Expected: 12/06/2023 (Approximate), Expires: 12/05/2024 N[facility]S HealthcareComment on above:Expected: 12/06/2023 (Approximate), Expires: 12/05/2024Start: 12-06-2023 End: 50-15-7346Irzariw, totalInsulin, total Lab Routine Hormone disorder Expected: 12/06/2023 (Approximate), Expires: 12/05/2024N[facility]S HealthcareComment on above:Expected: 12/06/2023 (Approximate), Expires: 12/05/2024Start: 12-06-2023 End: 13-44-8175Lwtsllomz serumSerotonin serum Lab Routine Hormone disorder Expected: 12/06/2023 (Approximate), Expires: 12/05/2024NOMS HealthcareComment on above:Expected: 12/06/2023 (Approximate), Expires: 12/05/2024Start: 12-06-2023 End: 36-77-6243UsfwyljsyrexfRogmmpmcowbgl Lab Routine Hormone disorder Expected: 12/06/2023 (Approximate), Expires: 12/05/2024NOMS HealthcareComment on above: Expected: 12/06/2023 (Approximate), Expires: 12/05/2024Start: 12-06-2023 End: 99-32-0994Ecgkowkiqmdha AntibodyThyroglobulin Antibody Lab Routine Hormone disorder Expected: 12/06/2023 (Approximate), Expires: 12/05/2024[facility] Comment on above:Expected: 12/06/2023 (Approximate), Expires: 12/05/2024Start: 12-06-2023 End: 25-92-5286Ctvqrhxwoxd [Units/volume] in Serum or PlasmaNOMS Healthcare Comment on above:Ordered: 12/06/2023Expected: 12/06/2023 (Approximate), Expires: 12/05/2024Start: 12-06-2023 End: 79-77-8291Dldsvam encounter hovtueuni28/04/2024 11:30 AM EDT Procedure Visit [facility] [address] [place] [phone] Sanjeev Lopez, DO [address] [place] [address] [facility] OBStart: 12-19-1787Duuahgnak vaccinationInfluenza VaccineWhite Hospitalca [facility]edo Hospital SystemStart: 11-29-2023 End: 88-88-8333SWST-sulfateDHEA-sulfate Lab Routine Decreased libido Expected: 11/29/2023 (Approximate), Expires: 11/28/2024NOMD HealthcareComment on above: Expected: 11/29/2023 (Approximate), Expires: 11/28/2024Start: 11-29-2023 End: 61-87-9751Qypwafw encounter gqyskhqhd16/28/2024 1:50 PM EDT Office Visit [facility] OB [address] [place] [phone] Sanjeev Lopez, DO [address] [place] [address] [facility] OBComment on above:ArrivedStart: 07-19-2023 End: 93-22-3985Rwzbmgq encounter fpilirdvc55/17/2024 1:45 PM EDT Office Visit [facility] [address] [facility] [address] [place] [phone] Vishal Martin DO [address] [facility] [address] [place] [address] [facility] RehabilitationStart: 07-17-2023 End: 61-73-1390Cvhqmvm encounter oebtwtpco45/15/2024 10:00 AM EDT Office Visit [facility] [address] [place] [phone] Sanjeev Lopez DO [address] [place] [address] [facility] BCP OBStart: 06-12-2023 End: 22-72-1118Egjospa encounter frmsyiddf90/11/2024 10:05 AM EDT Office Visit [facility] [address] [facility] [address] [place] [address] Rohit Smith MD [address] [place] [address] [facility] SurgeonsStart: 05-19-2023 End: 20-69-6663Zynvvvv encounter tgjlcuxiq66/16/2024 10:15 AM EST Appointment [facility] - MRI Imaging [address] [place] [address] [phone] Medical Specialty [facility] - MRI ImagingStart: 05-16-2023 End: 81-12-7074Lzuqsot encounter dbsrqtyej16/13/2024 1:45 PM EST Office Visit [facility] [address] [facility] [address] [place] [phone] Rohit Smith MD [address] [place] [address] [facility] Sp[facility] SurgeonsStart: 05-08-2023 End: 99-49-5633SV Lumbar spine WO contrastMR lumbar spine without contrast Imaging Routine Lumbar radiculopathy, chronic Urinary incontinencewithout sensory awareness Sensory deficit, left Spinal stenosis of lumbar region with neurogenic claudication Expected: 05/08/2023, Expires: 05/08/2024[facility] Work Phone: Comment on above:Expected: 05/08/2023, Expires: 05/08/2024Start: 05-08-2023 End: 23-77-1653Qxxwumf encounter tcsukksad41/05/2024 1:30 PM EST Office Visit [facility] [address] [place] [address] Jennie Colon, FIELD RETURN REPAIRER-TECHNICAL PROFESSIONAL [address] [place] [address] [facility] Start: 04-14-2023 End: 11-95-5416AY Lumbar spine Views W flexion and W extensionX-ray spine lumbar ap, lateral, flexion and extension only Imaging Routine Back pain, unspecified back location, unspecified back pain laterality, unspecified chronicity Expected: 04/14/2023, Expires: 04/14/2024[facility] Work Phone: Comment on above:Expected: 04/14/2023, Expires: 04/14/2024Start: 97-04-3038Iileoirmo vaccinationInfluenza VaccineProSt. Anthony'S Hospital SystemStart: 58-66-2526Wroaktcxmi ScreeningDepression ScreeningProSt. Anthony'S Hospital SystemStart: 14-16-8029Ukbdwvxpd vaccinationFlu vaccine (#1)GIANA PEREZ [facility]ITALStart: 51-37-1410Cdfyu BMI Follow Up PlanAdult BMI Follow Up Plan [facility] SystemStart: 53-85-1096Fvodywmjd vaccinationFlu vaccine (Season Ended)[facility] Rehabilitationart: 31-38-5940Ovbhqfxyg vaccinationFlu vaccine (#1)GIANA BANNERMILLY [facility] Centerart: 80-44-2381Ajzhehpk screenDiabetes screenKindred Hospital Lima Start: 12-13-1385Zpuyqqamc for malignant neoplasm of cervixKindred Hospital LimaStart: 34-61-6165Wdniccqik for malignant neoplasm of cervixPap smearKindred Hospital LimaStart: 34-70-9441OPgR,Tdap and Td Vaccines (1 - Tdap)DTaP,Tdap and Td Vaccines (1 - Tdap)[facility] SystemStart: 64-86-6034FUvY/Tdap/Td vaccine (1 - Tdap) DTaP/Tdap/Td vaccine (1 - Tdap)[facility] Rehabilitationart: 23-70-4413Aocqk BMI Follow Up PlanAdult BMI Follow Up PlanCentral Carolina Hospitaltart: 12-88-7869Eoxqdxjqt C screeningHepatitis C screenKindred Hospital LimaStart: 21-04-2745Mewbklkzlc Screen Depression [facility]: 32-34-3484Xdgldorvzn ScreeningDepression ScreeningCentral Carolina Hospitaltart: 79-37-7802FAESP-19 Vaccine (1)COVID-19 Vaccine (1)[facility] Rehabilitationart: 90-39-0894Urcrmsfgt vaccine (1 of 2 - 2-dose childhood series)Varicella vaccine (1 of 2 - 2-dose childhood series)[facility]: 34-28-0368OFJIB-19 Vaccine (#1)COVID-19 Vaccine (#1)[facility] CENTEREndometrial biopsyEndometrial biopsy Procedures Routine Menorrhagia with regular cycle Abnormal uterine bleeding (AUB) Pelvic pain Ordered: 12/06/2023[facility] Work Phone: comment on above:Ordered: 12/06/2023EstradiolEstradiol Lab Routine Hormone disorder Ordered: 12/06/2023[facility] HealthcareComment on above:Ordered: 12/06/2023EstroneEstrone Lab Routine Hormone disorder Ordered: 12/06/2023[facility] HealthcareComment on above:Ordered: 12/06/2023Ferritin [Mass/volume] in Serum or PlasmaFerritin Lab Routine Hormone disorder Ordered: 12/06/2023[facility] HealthcareComment on above:Ordered: 12/06/2023Hemoglobin A1c/Hemoglobin.total in BloodHemoglobin A1c Lab Routine Hormone disorder Ordered: 12/06/2023[facility] HealthcareComment on above:Ordered: 12/06/2023 ProgesteroneProgesterone Lab Routine Hormone disorder Ordered: 12/06/2023[facility] HealthcareComment on above:Ordered: 12/06/2023Sex hormone binding globulinSex hormone binding globulin Lab Routine Decreased libido Ordered: 11/29/2023[facility] HealthcareComment on above:Ordered: 11/29/2023T3, reverseT3, reverse Lab Routine Hormone disorder Ordered: 12/06/2023[facility] HealthcareComment on above:Ordered: 12/06/2023TESTOSTERONE, FREETESTOSTERONE, FREE Lab Routine Decreased libido Ordered: 11/29/2023[facility] Work Phone: comment on above:Ordered: 11/29/2023Testosterone, free, totalTestosterone, free, total Lab Routine Decreased libido Ordered: 11/29/2023[facility] HealthcareComment on above:Ordered: 11/29/2023Testosterone, free, totalTestosterone, free, total Lab Routine Hormone disorder Ordered: 12/06/2023 [facility] HealthcareComment on above:Ordered: 12/06/2023THIN PREP TIS PAP AND HR HPV DNATHIN PREP TIS PAP AND HR HPV DNA Pathology and Cytology Routine Well woman exam with routine gynecological exam Ordered: 07/22/2024[facility] Work Phone: comment on above:Ordered: 07/22/2024Thyroid peroxidase antibodyThyroid peroxidase antibody Lab Routine Hormone disorder Ordered: 12/06/2023[facility] HealthcareComment on above:Ordered: 12/06/2023Thyroxine (T4) free [Mass/volume] in Serum or PlasmaT4, free Lab Routine Hormone disorder Ordered: 12/06/2023[facility] HealthcareComment on above:Ordered: 12/06/2023Triiodothyronine (T3) Free [Mass/volume] in Serum or PlasmaT3, free Lab Routine Hormone disorder Ordered: 12/06/2023[facility] HealthcareComment on above:Ordered: 12/06/2023Vitamin D 1,25 dihydroxyVitamin D 1,25 dihydroxy Lab Routine Hormone disorder Ordered: 12/06/2023[facility] HealthcareComment on above:Ordered: 12/06/2023Vitamin D 1,25 dihydroxyVitamin D 1,25 dihydroxy Lab Routine Vitamin D insufficiency Ordered: 07/16/2024[facility] Work Phone: Comment on above:Ordered: 07/16/2024[facility] Payers DatePayer CategoryPayerPolicy [id number] Cross Blue [id number] [facility] Managed Care - [id number]. Unknown1.2.840.971638.1.13.693.2.7.3.660[id number] [id number] 1.2.840.951752.1.13.239.2.7.3.592420. [id number] 2..1.740350.3.579.2.11132-35-6992Qyfgqtf2516406 2..1.770398.3.579.2.04729-87-7540Pveoowm956453801 2..1.144667.3.579.2.39166-10-0238Jdpzyfl969085217 2..1.995908.3.579.2.74215-76-6568Gaovnwt254541255 2..1.898901.3.579.2.31175-21-1578Bbbwypw79444606 2.0.1.553356.3.579.2.154466-27-9729Tnszjvk38141901 2..1.817108.3.579.2.812135-28-8509Udwyswf46378701 2..1.234692.3.579.2.198886-57-8603Hxztxof92917748 2..1.655575.3.579.2.228103-36-0016Diswucp03573331 2..1.211142.3.579.2.49143-03-0561Dlryqdl83963249 2..1.087388.3.579.2.40595-33-3142Dkypomz20032943 2..1.343952.3.579.2.19862-50-0470Xmrhrlv601848369 2..1.584507.3.579.2.98403-74-5368Ingxzsi375989518 2..1.846588.3.579.2.880668-70-5983Vhtbfvj218363040 2..1.138989.3.579.2.727343-58-9428Wlkqzvp907514106 2..1.880480.3.579.2.657504-90-5095Pkdbpgk868548434 2..1.241980.3.579.2.290964-34-5814Chlcmth018944516 2..1.785353.3.579.2.314831-59-2182Cbyukmb474534546 2..1.308288.3.579.2.145807-32-1285Knmibmv733732639 2.16.840.1.386712.3.579.2.253818-04-8296Pkwnubk400630940 2..1.097201.3.579.2.550179-38-5220Slqlykf298433850 2..1.368839.3.579.2.928096-64-5853Pviiqbk716591335 2..1.279143.3.579.2.473871-18-0430Lyrgral382527668 2..1.117567.3.579.2.133062-92-6628Hhizpjy801954332 2..1.499345.3.579.2.725703-56-4751Hfdekcr45603923 2..1.291720.3.579.2.072398-54-0899Uirirlk98831913 2..1.525489.3.579.2.677769-21-4226Viqksdm10032550 2..1.202662.3.579.2.909534-49-1563Ugeqojp26972408 2..1.185955.3.579.2.186185-97-7929Gkkkesy17744746 2..1.027323.3.579.2.769211-48-3544Jiwdvra23848109 2..1.680329.3.579.2.537396-11-3619Gahzyjx12355102 2..1.336093.3.579.2.601548-60-3815Pgremyg2546199 2..1.852206.3.579.2.417856-18-7990Opccegj0067205 2..1.496876.3.579.2.721221-78-7452Gpmkdee6713022 2..0.1.903534.3.579.2.666205-60-5105Gqjiyxb1470541 2..840.1.025097.3.579.2.170191-11-4057Skyyoco1854102 2..840.1.579644.3.579.2.456233-10-4487Piaiohi4372615 2.0.1.196070.3.579.2.541127-00-2910Dkndfbw7545626 2.0.1.442926.3.579.2.680776-83-0985Flfjwed600102677 2.16.840.1.295828.3.579.2.195142-83-5841OglvnbmT3X452H37191Bynwkpt77138156 2.0.1.078578.3.579.2.531 Social History DateTypeDetailFacilityStart: 06-15-2015 End: 75-80-2164Fntwitb smoking status NHISNever smoked tobaccoPromedica Bay Park Hospital ii4bStart: 06-15-2015 End: 76-74-2569Zbnkxhm use and exposureSmokeless tobacco non-userMercy HospitalHoozOn Phone: start: 08-19-2021 End: 60-96-6415Oujfnoh intakeCurrent non-drinker of alcohol (finding)[employer] Phone: start: 05-14-2020 End: 46-05-3233Oxlmbrp intakeMercy HospitalHoozOn Phone: start: 71-23-1073Jhkmtcm SDOH Alcohol Commentrarely [employer] Phone: start: 79-85-3211Eim Assigned At BirthNot on fileMercy HospitalHoozOn Phone: start: 08-09-2021 End: 12-46-8224Ohxxyhtz to SARS-CoV-2 (event)Not sureSandy Health Work Phone: History of tobacco usePassive Daphnie WHITAKER [employer] Work Phone: start: 05-14-2020 End: 40-14-6545Iui Assigned At BirthLe[place] [employer] Other Start: 05-04-2023 End: 59-30-6887Qkbafar intakeEx-drinker (finding)[facility] HealthcareStart: 49-53-7369Kskfcut CommentAlcohol: 1 or 2 drinks on typical day/monthly or less. Caffeine: 1-2 cups/day teaPARK CITY HOSPITAL HealthcareStart: 86-86-8517Vzl Assigned At FemalePARK CITY HOSPITAL HealthcareStart: 45-51-1665Vnkkle identityIdentifies as female gender (finding)[facility] JosephStart: 38-35-8415Geeuyq orientationHeterosexual (finding)[facility] TUTORize, gas, oil, or water [employer] threatened to shut off services in your home in past 12[facility] SystemStart: 06-85-0659Mjuwpdsoyl depression screening xslkebiggy5BaaUamxzl Health System Start: 11-06-2014 End: 54-16-9663WssMsyrnv (finding)[facility] SystemTobacco smoking status NHISUnknown if ever smokedMckitrick Hospital Work Phone: NEGATED: Highlighted rowEast [facility] Hospital Medical Equipment Procedure CodeEquipment CodeEquipment Original TextEquipment IdentifierDates [id number], [id number], [id number]: 09-14-2023 End: 77-80-1101Symowf 13u97bc Str Grt Wht Jaws Ntnl Bn Rpl [id number] - Sna - [id number]: 13-15-0047Pianxr 08v36ea Str Grt Wht Jaws Ntnl Bn Rpl [id number] - Sna - [id number]: 92-55-6277Muvir Bn 13mm [address] Ns - Sna - [id number]: 46-92-0301Jysvp Bn 10mm 2mm Hd Mn-Mnstr St Ns - [id number]: 08-08-2024 Goals DatePatient GoalDesired Activity/StatePersonal health goalComment on above: Evaluation of progress towards goal: johns removal; pain management Clinical Notes 08-19-2021 to 02-07-2025 Note Date & RffjLkruGqodrirz20-60-7871 Miscellaneous Notes* Telephone Encounter - Vicki Biswas - 02/07/2025 11:35 AM EST Received fax referral. Called & spoke to patient, she does not want to see Dr. Nix. Informed her that she would have to [facility] a [facility] as our doctors do no see each other's patients. Referral scanned to chart. documented in [facility]Paulding [facility]11-[facility] Telephone encounter Note* Telephone Encounter - Vicki Biswas - 02/07/2025 11:35 AM EST Received fax referral. Called & spoke to patient, she does not want to see Dr. Nix. Informed her that she would have to see a patient outside of [facility] as our doctors do no see each other's patients. Referral scanned to chart. [facility]10-[facility] History of Present illness Narrative* Georgi [...] Morbid obesity with BMI of 45.0-49.9, adult ([facility]) PCOS (polycystic ovarian syndrome) Pre-diabetes Rectal bleeding [...] the morning., Disp: , Rfl: glucose blood (The Poker BarrelTouch Verio) test strip, Use as instructed, Disp: 100 each, Rfl: 3 Lancets (OneTouch Delica Plus [id number]) [facility], , Disp: , Rfl: losartan (Cozaar) 100 [...] and instructions. TodayI spent 30 minutes in nwrw-ds-sgdu discussion with the patient as well as [...] understanding. Georgi Carreon DPM documented in this encounterMosaic Life Care at St. JosephFxxwuyszob16-80-7853 History of Present illness Narrative* Georgi Carreon [...] Morbid obesity with BMI of 45.0-49.9, adult ([facility]) PCOS (polycystic ovarian syndrome) Pre-diabetes Rectal bleeding [...] the morning., Disp: , Rfl: glucose blood (UUSEEuch Verio) test strip, Use as instructed, Disp: 100 each, Rfl: 3 Lancets (The Poker BarrelTouch Delica Plus [id number]) [facility], , Disp: , Rfl: losartan (Cozaar) 100 MG tablet, Take 100 mg by mouth Daily, Disp: , Rfl: metoprolol succinate XL (Toprol-XL) 50 MG 24 hr tablet, Take 50 mg by mouth 1 (one) time each day at the same time, Disp: , Rfl: MONOJECT 3CC SYRINGE 3 ML [facility] [place] , Disp: , Rfl: Mounjaro 12.5 MG/0.5ML solution auto-injector, inject 0.5 milliliters UNDER THE SKIN ONCE WEEKLY, Disp: 2 mL, Rfl: 3 nystatin (Mycostatin) [id number] UNIT/GM powder, Apply topically 3 (three) times [...] Comments: Presents to clinic weight-bearing unassisted in [facility]. Accompanied by her . HENT: Head: [...] understanding. Georgi Carreon DPM documented in this encounterM[facility]. [id number] History of Present illness Narrative* Georgi Carreon [...] Morbid obesity with BMI of 45.0-49.9, adult ([facility]) PCOS (polycystic ovarian syndrome) Pre-diabetes Rectal bleeding Off and on since 2018 Weight gain Medications Current Outpatient Medications: Alcohol Swabs (B-D SINGLE USE SWABS REGULAR) pads, , Disp: , Rfl: amLODIPine (Norvasc) 10 MG tablet, Take 10 mg by mouth in the morning., Disp: , Rfl: Blood Glucose Monitoring Suppl ([employer] Glucometer) w/Device kit, 1 kit Daily Use [...] each, Rfl: 3 Lancets (OneTouch Delica Plus [id number]) [facility] [place] , Disp: , Rfl: losartan (Cozaar) 100 MG tablet, Take 100 mg by mouth Daily, Disp: , Rfl: metoprolol succinate XL (Toprol-XL) 50 MG 24 hr tablet, Take 50 mg by mouth 1 (one) time each day at the same time, Disp: , Rfl: MONOJECT 3CC SYRINGE 3 ML [facility] [place] , Disp: , Rfl: Mounjaro 12.5 MG/0.5ML [...] boot. Referral sent to [facility] [place]. I will follow up with her in [...] understanding. Georgi Carreon DPM documented in this encounterMosaic Life Care at St. JosephHyjpnwfqan07-98-2910 History of Present illness Narrative* Georgi Carreon [...] Disp: , Rfl: Blood Glucose Monitoring Suppl ([employer] Glucometer) w/Device kit, 1 kit Daily Use [...] the morning., Disp: , Rfl: glucose blood (The Poker BarrelTouch Verio) test strip, Use as instructed, Disp: 100 each, Rfl: 3 Lancets (The Poker BarrelTouch Delica Plus [id number]) [facility] [place] , Disp: , Rfl: losartan (Cozaar) 100 MG tablet, Take 100 mg by mouth Daily, Disp: , Rfl: metoprolol succinate XL (Toprol-XL) 50 MG 24 hr tablet, Take 50 mg by mouth 1 (one) time each day at the same time, Disp: , Rfl: MONOJECT 3CC SYRINGE 3 ML [facility] [place], , Disp: , Rfl: Mounjaro 12.5 MG/0.5ML [...] understanding. Georgi Carreon DPM documented in this encounterMosaic Life Care at St. JosephOiulquxsgv98-86-1907 History of Present illness Narrative* Rosy Nelson [...] Disp: , Rfl: Blood Glucose Monitoring Suppl ([employer] Glucometer) w/Device kit, 1 kit Daily Use [...] the morning., Disp: , Rfl: glucose blood (The Poker BarrelTouch Verio) test strip, Use as instructed, Disp: 100 each, Rfl: 3 Lancets (The Poker BarrelTouch Delica Plus [id number]) misc, , Disp: , Rfl: losartan (Cozaar) [...] understanding. Georgi Carreon DPM documented in this encounterMosaic Life Care at St. JosephUqyxmbgwri92-82-7156 NoteUT Cardiology - [facility] Subjective Karuna Dumont is a 43 y.o. year old female being seen for follow up medication changes and renal artery duplex. Echo is scheduled for tomorrow at [facility] in [place]. She needs cleared for foot surgery scheduled for at [facility] also. BP has been much better [...] Current Outpatient Medications: amLODIPin (more content not included)...[facility] 07-31-2024 Instructions* Patient Instructions* Mary Ellen Castellon RN - 07/31/2024 2:15 PM EDT Preoperative Education Checklist- General Surgery date: 08/08/24 Surgery time: 0730 a.m. Arrival time: 0610 a.m. 1. Bring a photo ID and your insurance card with you the day of surgery. You will check in at the main lobby of the [facility]- registration desk is straight ahead as soon as you walk in. Tell them you are here for surgery. 2. If you have a Living Will/Durable Power of Line Fixer for Health Care that is not on [...] after you have bathed. 5. NO nail cuban/acrylic on at least one finger. If you are having a hand, wrist or foot surgery then all nail cuban and artificial/acrylic nails must be removed from [...] please call the Preadmission Testing office at [phone], Mon.-Fri. 7 a.m.-3 p.m. Leave a voicemail [...] appointment with your doctor. documented in this encounterWhite HospitalNCTech [id number] Miscellaneous Notes* Perioperative Nursing Note - Mary Ellen Castellon RN - 07/31/2024 2:15 PM EDT Preoperative Education Checklist- General Surgery date: 08/08/24 Surgery time: 0730 a.m. Arrival time: 0610 a.m. 1. Bring a photo ID and your insurance card with you the day of surgery. You will check in at the main lobby of the [facility]- registration desk is straight ahead as soon as you walk in. Tell them you are here for surgery. 2. If you have a Living Will/Durable Power of Line Fixer for Health Care that is not on [...] after you have bathed. 5. NO nail cuban/acrylic on at least one finger. If you are having a hand, wrist or foot surgery then all nail cuban and artificial/acrylic nails must be removed from [...] please call the Preadmission Testing office at [phone], Mon.-Fri. 7 a.m.-3 p.m. Leave a voicemail [...] has her ECHO completed. documented in this encounterPaulding [facility] Hospital04-30-2025 Nurse Note* Perioperative Nursing Note - Mary Ellen Castellon RN - 07/31/2024 2:15 PM EDT Preoperative Education Checklist- General Surgery date: 08/08/24 Surgery time: 0730 a.m. Arrival time: 0610 a.m. 1. Bring a photo ID and your insurance card with you the day of surgery. You will check in at the main lobby of the [facility]- registration desk is straight ahead as soon as you walk in. Tell them you are here for surgery. 2. If you have a Living Will/Durable Power of Line Fixer for Health Care that is not on [...] after you have bathed. 5. NO nail cuban/acrylic on at least one finger. If you are having a hand, wrist or foot surgery then all nail cuban and artificial/acrylic nails must be removed from [...] please call the Preadmission Testing office at [phone], Mon.-Fri. 7 a.m.-3 p.m. Leave a voicemail [...] to the follow-up appointment with your doctor. [facility][id number] Nurse Note* Perioperative Nursing Note - Mary Ellen Castellon RN - 07/31/2024 2:15 PM EDT Hibiclens and surgical instructions reviewed. Patient verbalized understanding. [facility]04-30-2025 Nurse Note* Perioperative Nursing Note - Mary Ellen Castellon RN - 07/31/2024 2:15 PM EDT Lisette at Dr Carreon's office notified of need for cardiac clearance once patient has her ECHO completed. [facility]04-30-2025 History of Present illness Narrative* Georgi [...] each, Rfl: 3 Lancets (OneTouch Delica Plus [id number]) misc, , Disp: , Rfl: losartan (Cozaar) [...] period for the planned procedures which will dddryyw4eb TMT arthrodesis with modified Lazaro bunionectomy, shortening [...] understanding. Georgi Carreon DPM documented in this encounterMosaic Life Care at St. [id number] History of Present illness Narrative* Natalia Choi LPN - 07/22/2024 3:00 PM EDT Reason for Appointment: Patient ID: Cindy Dumont is a 43 y.o. female who presents for [facility] Visit Patient presents today for [...] Use as instructed Lancets (OneTouch Delica Plus Ywcpoq19I) misc losartan (COZAAR) 100 mg, Daily metoprolol [...] nursing note reviewed. Exam conducted with a clinical services specialist present. Vitals: Estimated body mass index is [...] Sanjeev Lopez DO documented in this encounterNOMS [id number] History of Present illness Narrative* Georgi Carreon, [...] each, Rfl: 3 Lancets (OneTouch Delica Plus Zstanc89L) misc, , Disp: , Rfl: MONOJECT 3CC [...] understanding. Georgi Carreon DPM documented in this encounterMosaic Life Care at St. JosephLvtohyjmfg75-50-2368 NoteUT Cardiology - [facility] Subjective Karuna Dumont is a [...] Swelling and Unknown Medications Current Outpatient Medications: eyaeadphjq-kqepoaoulegji-lexo (Fioricet) 50-300-40 mg capsule, Take 50 capsules [...] (one) time per week., Disp: , Rfl: pwrlijgonqke-fjz-hyqv-FA-vit K 18 mg iron-400 mcg-25 mcg tablet, Take by mouth., Disp: , Rfl: ondansetron ODT (Zofran-ODT) 4 mg disintegrating tablet, Take 4 mg by mouth every 8 (eight) (more content not included)...[facility]03-28-2025 NoteEducation Materials Neurology Migraine Headache [...] these instructions at home: Medicines ? Take jhwx-yno-joktutk and prescription medicines only as told by your provider. ? Ask your provider if the medicine prescribed to you: ? Requires you to avoid driving or using machinery. ? Can cause constipation. You may need to take these actions to prevent or treat constipation: ? Drink enough fluid to keep your pee (urine) pale yellow. ? Take tcfh-kmp-xmeujrj or prescription medicines. ? Eat foods that [...] for Headache and M (more content not included)...[facility] 05-17-2024 Evaluation note* Diagnosis Onset Date Resolution Status Admit Date Adult ADHD acuteFebruary 2024 10:57amBenign essential HTNacuteFebruary 2024 10:57am [facility] Work Phone: 1(353) 879-372701-09-2025 Evaluation note* Diagnosis Onset Date Resolution Status Admit Date Adult ADHD acuteJanuary 2024 9:46amBenign essential HTNacuteJanuary 2024 9:46am Wellness examinationacuteJanuary 2024 9:46am [facility] Work Phone: 1(688) 335-775412-20-2024 History of Present illness Narrative* Caitlyn Logan RN - 03/22/2024 1:59 PM EST [facility] received referral for BRCA testing. Referral faxed to genetics. documented in this encounterPaulding County Hospital12-11-2024 Miscellaneous Notes* Result Encounter Note - Tatum Atkinson LPN - 03/13/2024 3:00 PM EST Pt notified and was told we could do the BRCA referral documented in this encounterMosaic Life Care at St. JosephLsbsgwqdqj04-95-9742 Progress note* Result Encounter Note - Tatum Atkinson LPN - 03/13/2024 3:00 PM EST Pt notified and was told we could do the BRCA referral [facility] Work Phone: 1(802) 890-698111-25-2024 History of Present illness Narrative* Monique Cantrell [...] of 4times daily. Lancets (OneTouch Delica Plus Vsvgkp27D) misc MONOJECT 3CC SYRINGE 3 ML misc [...] Morbid obesity with BMI of 45.0-49.9, adult (CMS/[facility]) PCOS (polycystic ovarian syndrome) Pre-diabetes Rectal bleeding Off and on since 2018 Weight gain Social History Tobacco Use Smoking status: Never Smokeless tobacco: Never Substance Use Topics Alcohol use: Not Currently Comment: Alcohol: 1 or 2 drinks on typical day/monthly or less. Caffeine: 1-2 cups/day tea Drug use: Never FAMILY HISTORY Family History Problem Relation Name Age of Onset Hypertension Maternal Grandfather [place] Heart disease Maternal Grandfather [place] Stroke Maternal Grandfather [place] Cancer Maternal Grandfather [place] Drug abuse Maternal Grandfather [place] Drug abuse Father Tyrese Diabetes Paternal Grandfather [...] nursing note reviewed. Exam conducted with a clinical services specialist present. Vitals: Estimated body mass index is [...] of: Sanjeev Lopez DO documented in this encounterMosaic Life Care at St. JosephJbgqsepbth37-70-7677 History of Present illness Narrative* Alfonso Liang MD - 01/26/2024 5:57 PM EDT 01/26/2024 6:12 PM Opened this encounter to order Belpre but talked to patient's pharmacy that it was an insurance issue and they are going to fulfill the prescription now. No new orders were placed. Dr. Price made aware. ALFONSO LIANG MD PGY4 Gen Surg [employer] documented in this encounterPaulding County Hospital10-13-2024 NoteEducation Materials Neurology Migraine Headache A [...] these instructions at home: Medicines ? Take lqtm-qna-nvtgfcp and prescription medicines only as told by [...] you. Where to find more information ? [facility] ([facility]): headachemigraine.org ? [place] Migraine Foundation: americanmigrainefoundation.org ? National Headache Foundation: [...] your health care p (more content not included)...[facility] HospitalInernrsx62-72-1253 History of Present illness Narrative* Tatum Atkinson [...] TAKE 1 TABLET BY MOUTH PREOP Lancets (The Poker BarrelTouch Delica Plus Gdzalx41P) misc MONOJECT 3CC SYRINGE 3 ML misc [...] Name Age of Onset Hypertension Maternal Grandfather [place] Heart disease Maternal Grandfather [place] Stroke Maternal Grandfather [place] Cancer Maternal Grandfather [place] Drug abuse Maternal Grandfather [place] Drug abuse Father Tyrese Diabetes Paternal Grandfather [...] nursing note reviewed. Exam conducted with a clinical services specialist present. Vitals: Estimated body mass index is [...] of: Sanjeev Lopez DO documented in this encounterMosaic Life Care at St. JosephQprfrlzvwm25-05-3423 History of Present illness Narrative* Tracie Octavio - 12/06/2023 11:30 AM EDT Reason for Appointment: Patient ID: Cindy Dumont is a 43 y.o. female who presents for Endometrial Biopsy and Pre-op Visit Patient presents today for Pre Op/Endometrial Biopsy appointment. Patient is scheduled to undergo Endometrial Ablation with Mariel on 12/22/[address] Lopez at [facility]. MEDICATIONS Current Outpatient Medications Medication Instructions Alcohol Swabs (Alcohol Prep Pad) 70 % pads 1 Pad, Topical, 2 times daily, Use twice daily to check FSBS. Blood Glucose Monitoring Suppl ([employer] Glucometer) w/Device kit 1 kit, Does not [...] Name Age of Onset Hypertension Maternal Grandfather [place] Heart disease Maternal Grandfather [place] Stroke Maternal Grandfather [place] Cancer Maternal Grandfather [place] Drug abuse Maternal Grandfather [place] Drug abuse Father Tyrese Diabetes Paternal Grandfather [...] nursing note reviewed. Exam conducted with a clinical services specialist present. Vitals: Estimated body mass index is [...] reviewed, and patient is to proceed to [facility] OR. Follow Up: Patient is to follow up between 1-2 weeks post op to assess proper healing and recovery from procedure. Documented by Monique Cantrell LPN on behalf of: Sanjeev Lopez DO documented in this encounterMosaic Life Care at St. JosephCnglafahhe61-99-7677 History of Present illness Narrative* Monique Cantrell [...] Morbid obesity with BMI of 45.0-49.9, adult (CMS/[facility]) PCOS (polycystic ovarian syndrome) Pre-diabetes Rectal bleeding Off and on since 2018 Weight gain Social History Tobacco Use Smoking status: Never Smokeless tobacco: Never Substance Use Topics Alcohol use: Not Currently Comment: Alcohol: 1 or 2 drinks on typical day/monthly or less. Caffeine: 1-2 cups/day tea Drug use: Never FAMILY HISTORY Family History Problem Relation Name Age of Onset Hypertension Maternal Grandfather [place] Heart disease Maternal Grandfather [place] Stroke Maternal Grandfather [place] Cancer Maternal Grandfather [place] Drug abuse Maternal Grandfather [place] Drug abuse Father Tyrese Diabetes Paternal Grandfather [...] nursing note reviewed. Exam conducted with a clinical services specialist present. Vitals: Estimated body mass index is [...] of: Sanjeev Lopez DO documented in this encounterMosaic Life Care at St. JosephEmfccewzbp86-02-2793 NotePatient Education Materials Follows: Hypertension, Adult High [...] of wine (148 mL (more content not included)...[facility] HospitalTwddqkoi77-02-6099 History of Present illness Narrative* Rohit Metzger [...] take another few months to subside. Recommended hpur-fyv-wrbkjdt pain relievers as needed. She is content [...] has any severe symptoms. documented in this encounterPaulding County Hospital02-13-2024 History of Present illness Narrative* Rohit Metzger MD - 05/16/2023 1:45 PM EST [facility] Chief Complaint: [...] a snap. She initially followed up with [facility] and was diagnosed with right [...] External notes reviewed: I reviewed notes from [facility] orthopaedics. Review of test/study reports: I reviewed an x-ray obtained of the right ring finger. There were no acute osseous abnormality suchas fracture dislocation. My personal interpretation of tests: I personally viewed and interpreted X-rays from [facility] as above. Xrays done in office today: None. Assessment: 1. Mallet deformity of right ring finger - [facility] - [place], [place] 2. Finger injury, right[facility] [place], [place] Plan: I discussed treatment options with [...] progress with her flexion. documented in this encounterPaulding County Hospital02-07-2024 Evaluation note* Encounter Date Diagnosis Assessment Notes Treatment Notes Treatment Clinical Notes May, Adult ADHD (attentio n deficit hyperactivity disorder) (ICD-10 - F90.9) [employer] Other 02-05-2024 History of Present illness Narrative* Jennie Colon APRN-RASHAUN - 05/08/2023 1:30 PM EST Images from the original note were not included. [facility] [address] [place] [phone] * CHART NOTE ? 05/08/2023 Patient: Karuna Dumont 1980 [id number] Provider: Jennie Colon CNP CHIEF COMPLAINT Low [...] Current and prior treatments: -Physical therapy/HEP: denies -vision care associate: denies -Pain management: denies -Prior neurosurgical [...] 12/08/2016 Performed by Dannie Patel MD at [facility] OR SECTION 2018 CHOLECYSTECTOMY BEHAVORIAL [...] Right achilles: 2+ Left achilles: 2+ Right chef assistant: 2+ Left chef assistant: 2+ Right Andujar: absent Left Andujar: absent [...] record of the patient encounter. Inadvertent computerized data warehousing manager errors related to syntax, spelling, homophones, and/or inaudibility may be present. Thank you for your referral. CAIT Perla CNP 05/08/23 1440 documented in this encounterWhite HospitalMidfin Systems [facility]-[id number] History of Present illness Narrative* Everett Okeefe [...] at . On 03/13, pt went to [facility] and had another XR. Unable to get into hand specialist at [facility] until May 16. Continues to have soreness [...] [facility], XR, Splint, [facility], XR 03/13/23, Ice, Heat, IBU, [place] ALLERGIES: No Known Allergies HOME MEDICATIONS: Current Outpatient Medications Medication Instructions amphetamine-dextroamphetamine (Adderall) 20 MG tablet 1 TABLET ORALLY MID DAY 30 DAYS cyclobenzaprine (Flexeril) 10 MG tablet PLEASE SEE ATTACHED FOR DETAILED DIRECTIONS fluconazole (DIFLUCAN) 100 mg, Oral, Daily nystatin (Mycostatin) 052103 UNIT/GM powder APPLY TO AFFECTED AREA TOPICALLY [...] normal Pronation: normal Supination: normal Muscle Strength Web Retailer: 3/5 Other Erythema: absent Pulse: present Comments: [...] urgent evaluation. Everett CHAVIRA documented in this encounterMosaic Life Care at St. JosephIanpplnmml52-48-4100 Evaluation note* Encounter Date Diagnosis Assessment Notes Treatment Notes Treatment Clinical Notes Apr, Adult ADHD (attentio n deficit hyperactivity disorder) (ICD-10 - F90.9) [place] [employer] Other 01-12-2024 History of Present illness Narrative* [...] not had any complication. She is using zutl-dbp-vddthml pain patches. She denies any recent change [...] 12/08/2016 Performed by Dannie Patel MD at [facility] OR SECTION 2018 CHOLECYSTECTOMY Social [...] per her request. I have evaluated her [facility] reporting risk OARRS report overdose risk score [...] follow-up. OAARS report reviewed via OARRS/MAPS in [employer]. Discussed with the patient/caregiversafe and effective use [...] you individually. If you have been recommended mkso-idw-ziyvdxk medications please use those medications as indicated [...] or approved for treating a specific patient. [employer] and its affiliatesdisclaim any warranty or liability relating to this information or the use thereof. The use of thisinformation is governed by the Terms of Use, available at https://www.[employer]Mission.[employer]/en/know/clhizlix-kenzldifwpehs-hyojl Copyright Copyright 2022 [employer] and its affiliates and/or licensors. All rights reserved. OVER THE COUNTER PAIN CONTROL GUIDELINES To help control your pain a combination of ztpc-tml-brbzgdh (OTC) pain medications can be used successfully [...] ulcers Do NOT take Tylenol along with Belpre or Percocet (they already have Tylenol) Do [...] CAIT Song 04/14/23 1207 documented in this encounterGifford Medical CenterBubbl [id number] Instructions* Patient Instructions* CAIT Song - 04/14/2023 [...] you individually. If you have been recommended lgpd-ykv-aqjibrz medications please use those medications as indicated [...] or approved for treating a specific patient. [employer] and its affiliatesdisclaim any warranty or liability relating to this information or the use thereof. The use of thisinformation is governed by the Terms of Use, available at https://www.IDMission.com/en/know/cfnawhgw-ztistksmwldke-ovxxc Copyright Copyright 2022 [employer] and its affiliates and/or licensors. All rights reserved. OVER THE COUNTER PAIN CONTROL GUIDELINES To help control your pain a combination of devc-dda-vnowuyc (OTC) pain medications can be used successfully [...] ulcers Do NOT take Tylenol along with Belpre or Percocet (they already have Tylenol) Do NOT drink Alcohol while taking Tylenol If you have any questions please talk to your doctor or a pharmacist documented in this [facility]01-10-2024 Evaluation note* Encounter Date Diagnosis Assessment Notes Treatment Notes Treatment Clinical Notes Apr, Adult ADHD (attentio n deficit hyperactivity disorder) (ICD-10 - F90.9) [facility] [employer] Other 01-09-2024 Evaluation note* Encounter Date Diagnosis Assessment Notes Treatment Notes Treatment Clinical Notes Apr, Adult ADHD (attentio n deficit hyperactivity disorder) (ICD-10 - F90.9) [employer] [employer] Other 01-08-2024 Evaluation note* Encounter Date Diagnosis Assessment Notes Treatment Notes Treatment Clinical Notes Apr, Adult ADHD (attentio n deficit hyperactivity disorder) (ICD-10 - F90.9) [employer] [employer] Other 10-30-2023 Evaluation note* Encounter Date Diagnosis Assessment Notes Treatment Notes Treatment Clinical Notes Jan, Adult ADHD (attentio n deficit hyperactivity disorder) (ICD-10 - F90.9) [employer] [employer] Other 10-02-2023 Evaluation note* Encounter Date Diagnosis [...] in 3 months or sooner if needed. [employer] Other 09-08-2023 Evaluation note* Encounter Date Diagnosis Assessment Notes Treatment Notes Treatment Clinical Notes Dec, Adult ADHD (attentio n deficit hyperactivity disorder) (ICD-10 - F90.9) [employer] Other 09-07-2023 Evaluation note* Encounter Date Diagnosis Assessment Notes Treatment Notes Treatment Clinical Notes Dec, Adult ADHD (attentio n deficit hyperactivity disorder) (ICD-10 - F90.9) [employer] Other 08-30-2023 Evaluation note* Encounter Date Diagnosis [...] lifetime. Nov,utaneous candidiasis (ICD-10 - B37.2)Refilled diflucan. [employer] [employer] Other 07-11-2023 Hospital Discharge instructions* Discharge Instructions* RIZWAN Dietz CNP - 10/11/2022 8:08 PM EDT Please call and schedule a follow-up appointment with [facility]. Use an ice pack or [...] through Care Everywhere. * RICE: General Info (Indonesian) * Ankle Sprain (Indonesian) documented in this encounterBON ASHTABULA [facility]05-[facility] Hospital Discharge instructions* Instructions* Radha Sanders MD - 08/19/2021 May use ice or heat, whichever feels better. May use Belpre for pain. Prednisone as directed. Follow-up with [...] a follow up appointment THANK YOU!!! From [facility] and [facility] On behalf of the Emergency Department staff at [facility], I would like to thank you for giving us the opportunity to address your health care needs and concerns. We hope that during your visit, our service was delivered in a professional and caring manner. Please keep [facility] in mind as we walk with you [...] how we did during your visit at [email or web address] and let us know about your experience * Attachments The following attachments cannot be sent through Care Everywhere. * Herniated Disc (Indonesian) documented in this encounterMercy HospitalHoozOn Phone: evalkcwynv note* Diagnosis Herniated lumbar intervertebral disc- Primary Displacement of lumbar intervertebral disc without myelopathy documented in this encounter [employer] Phone: evaluation note* Diagnosis Gastroenteritis- Primary Other and unspecified noninfectious gastroenteritis and colitis documented in this encounter GIANA PEREZ [employer] Phone: evalomobpb note* Diagnosis Sprain of right ankle, unspecified ligament, initial encounter- Primary documented in this encounter GIANA CHRIS [facility]ITALEvaluation noteNo InformationNort [employer] Other Evaluation note* Diagnosis 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 Pain in finger of right hand Pain in soft tissues of limb documented in this encounter [facility] HealthcareEvaluation noteNo assessment information availableMartin Memorial Hospital Work Phone: Evaluation note* Diagnosis Postop check Follow-up examination, following unspecified surgery Low ferritin level Other nonspecific findings on examination of blood documented in this encounter [facility] HealthcareEvaluation note* Diagnosis Breast pain Mastodynia documented in this encounter [facility] HealthcareEvaluation note* Diagnosis Encounter to discuss procedure Menorrhagia with regular cycle Decreased libido [facility] Pre-op examination Menorrhagia with regular cycle Abnormal uterine bleeding (AUB) Pelvic pain Hormone disorder Unspecified endocrine disorder documented in this encounter [facility] HealthcareEvaluation note* Diagnosis Onset Date Resolution Status Admit Date Adult ADHD acuteJanuary 2024 9:46amWellness examinationacuteJanuary 2024 9:46am [facility] Work Phone: Evaluation note* Diagnosis Back pain, unspecified back location, unspecified back pain laterality, unspecified chronicity- Primary [facility] Diagnosis Acute left-sided low back pain with left-sided sciatica- Primary [facility]* Diagnosis Lumbar radiculopathy, chronic- Primary Urinary incontinence without sensory awareness Incontinence without sensory awareness Sensory deficit, left Spinal stenosis of lumbar region with neurogenic claudication documented in [facility]* Diagnosis Herniated lumbar intervertebral disc- Primary Displacement of lumbar intervertebral disc without myelopathy documented in [facility]* Diagnosis 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 Finger injury, right, initial encounter documented in this [facility]* Diagnosis Herniated lumbar intervertebral disc- Primary Displacement of lumbar intervertebral disc without myelopathy Lumbar radiculopathy, chronic documented in this [facility]* Diagnosis 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 [facility] Diagnosis Lumbar radiculopathy, chronic- Primary Herniated lumbar intervertebral disc Displacement of lumbar intervertebral disc without myelopathy documented in this encounter [facility]* Diagnosis Hallux valgus of left foot- Primary Instability of left foot joint Tailor's bunion of left foot Acquired deformity of left toe 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 Equinus contracture of left ankle Left foot pain Pain in soft tissues of limb Vitamin D insufficiency documented in this encounter [facility] HealthcareEvaluation note* Diagnosis Well woman exam [...] of left ankle documented in this encounter [facility] HealthcareEvaluation note* Diagnosis Preop examination- Primary Unspecified pre-operative examination Hypertension, unspecified type documented in this encounter [facility]* Diagnosis S/P foot surgery- Primary Other postprocedural status Left foot pain Pain in soft tissues of limb Difficulty walking Difficulty in walking Instability of left ankle joint documented in this encounter [facility] HealthcareEvaluation note* Diagnosis S/P foot surgery- Primary Other postprocedural status Left foot pain Pain in soft tissues of limb documented in this encounter [facility] HealthcareEvaluation note* Diagnosis S/P foot surgery- Primary Other postprocedural status Left foot pain Pain in soft tissues of limb documented in this encounter [facility] HealthcareEvaluation note* Diagnosis S/P foot surgery- Primary Other postprocedural status Left foot pain Pain in soft tissues of limb documented in this encounter [facility] HealthcareEvaluation note* Diagnosis S/P foot surgery- Primary Other postprocedural status 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 Acquired deformity of right toe Tailor's bunionette, right documented in this encounter [facility] HealthcareHistory general Narrative - Reported* Type Description Date Medical History PCOS/insulin resistant Medical HistoryPCOS (polycystic ovarian syndrome)Medical HistoryFrequent headachesMedical HistoryGestational diabetesMedical HistoryPrediabetesSurgical [id number] Ywzfwggsbqszfflchew4540Ddtsmveg History [id number],2020Hospitalization Historysee surgical hx [facility] [place] Other Hospital Discharge instructions* Attachments The following attachments cannot be sent through Care Everywhere. * Gastroenteritis (Indonesian) documented [facility] Work Phone: InstructionsNot on filedocumented in this encounter [facility] SystemInstructionsNot on filedocumented in this encounter [facility] SystemInstructions* Attachments The following attachments cannot be sent through Care Everywhere. * Radiculopathy (Indonesian) * Spinal stenosis (Indonesian) documented in [facility]St[facility] SystemInstructionsNot on file documented in this encounterProSt. [facility] SystemInstructionsNot on file documented in this encounter[facility] SystemInstructionsNot on file documented in this encounter[facility] SystemInstructions* Pre-Procedure Instructions - Bessie Boswell RN - 01/18/2024 3:45 PM EDT Your surgery/procedure is scheduled at [facility] on 01/25/24 at 10 am Arrival Time 8 am [facility] Address: [address] [place] [address], [address] [place] [address] in the Emergency Center Parking lot. Report to the desk director in the Emergency/Surgery Registration lobby of the hospital. Notify your SURGEON if you develop any illness such as a cold, cough, fever, sore throat, vomiting or are hospitalized between now and your surgery. Please call Pre-Admission Clinic at [phone] if you have any questions prior to surgery. For questions the morning of surgery, call the Pre-op Department at [phone]. Medication Instructions (Do not stop your medications [...] would like to schedule therapy at a [facility] facility, please call [phone] ([phone]). Do not use lotions, creams, powders, perfume, make up, cologne or after-shaves day of surgery. Remove ALL jewelry including wedding rings, body piercings, hair extensions that contain metal, nail cuban, make-up, and contact lens. You may brush your teeth the morning of surgery, but do not swallow the water. Wear your dentures and partial plates to the hospital (no adhesive). Shower the night the before. If applicable, use the CHG (chlorhexidine gluconate) soap or wipes. Please be advised, [facility] has transitioned to a cashless payment system. [...] RIGHTS AND RESPONSIBILITIES As a patient at [facility], you have the right to: Receive medical care and be informed of who is taking care of you Be treated with dignity and respect Have a family member/u.s. representative of choice and your physician notified of your admission Receive information and actively participate in decisions about your care and treatment Refuse care, treatment and services Decide who may provide your support and speak for you Access scientology and spiritual services Participate in ethical issues [...] of hospital charges and payment methods Patient/patient u.s. representative responsibilities are to: Provide information about health status to facilitate care, treatment and services Follow the treatment, plan, keep appointments and speak up when you do not understand the plan Respect the rights of other patients and healthcare personnel Follow organizational rules and regulations that support quality care and a safe environment Fulfill financial obligations as promptly as possible [facility] ii4b SystemInstructionsNot on filedocumented in this encounter [facility] ii4b SystemInstructionsNot on filedocumented in this encounter [facility] Health SystemInstructionsNot on filedocumented in this encounter [facility] SystemInstructionsNot on filedocumented in this encounter [facility] SystemMiscellaneous Notes* Pre-Procedure Instructions - Bessie Boswell RN - 01/18/2024 3:45 PM EDT Your surgery/procedure is scheduled at [facility] on 01/25/24 at 10 am Arrival Time 8 am [facility] Address: [address] [place] [address], [address] [address] in the Emergency Center Parking lot. Report to the desk director in the Emergency/Surgery Registration lobby of the hospital. Notify your SURGEON if you develop any illness such as a cold, cough, fever, sore throat, vomiting or are hospitalized between now and your surgery. Please call Pre-Admission Clinic at [phone] if you have any questions prior to surgery. For questions the morning of surgery, call the Pre-op Department at [phone]. Medication Instructions (Do not stop your medications [...] would like to schedule therapy at a [facility] facility, please call [phone] ([phone]). Do not use lotions, creams, powders, perfume, make up, cologne or after-shaves day of surgery. Remove ALL jewelry including wedding rings, body piercings, hair extensions that contain metal, nail cuban, make-up, and contact lens. You may brush your teeth the morning of surgery, but do not swallow the water. Wear your dentures and partial plates to the hospital (no adhesive). Shower the night the before. If applicable, use the CHG (chlorhexidine gluconate) soap or wipes. Please be advised, [facility] has transitioned to a cashless payment system. [...] RIGHTS AND RESPONSIBILITIES As a patient at [facility], you have the right to: Receive medical care and be informed of who is taking care of you Be treated with dignity and respect Have a family member/u.s. representative of choice and your physician notified of your admission Receive information and actively participate in decisions about your care and treatment Refuse care, treatment and services Decide who may provide your support and speak for you Access scientology and spiritual services Participate in ethical issues [...] of hospital charges and payment methods Patient/patient u.s. representative responsibilities are to: Provide information about health status to facilitate care, treatment and services Follow the treatment, plan, keep appointments and speak up when you do not understand the plan Respect the rights of other patients and healthcare personnel Follow organizational rules and regulations that support quality care and a safe environment Fulfill financial obligations as promptly as possible documented in this encounterPaulding County HospitalReason for referral (narrative)* Consultation (Routine) - Pending ReviewSpecialtyDiagnoses / ProceduresReferred By ContactReferred To ContactPhysical Medicine and Rehabilitation Diagnoses Herniated lumbar intervertebral disc Lumbar radiculopathy, chronic Jennie Colon APRN-TECHNICAL PROFESSIONAL [address] [facility] [address] [place] [address] Vishal Martin DO [address] [facility] [address] [place] [address] Referral IDStatusReasonStart DateExpiration DateVisits RequestedVisits [id number] Review Specialty Services Required / [facility] HospitalReason for referral (narrative)* Consultation (Routine) - Pending ReviewSpecialtyDiagnoses / ProceduresReferred By ContactReferred To ContactBanner Cardon Children[facility] Medicine Diagnoses Lumbar radiculopathy, chronic Herniated lumbar intervertebral disc Jennie Colon APRN-CNP [address] [address] Davis Silva MD [address] [place] [address] Referral IDStatusReasonStart DateExpiration DateVisits RequestedVisits [id number] Review/ [facility] Advance Directives No Advanced Directives Records FoundDocuments on File TypeDate RecordedPatient RepresentativeExplanationACP-Advance DirectiveACP-Power of Line Fixer Advance Directive Response Recorded Date/ Time Advance Directives No December 7:20pm Date ActivatedDate LcyyxnpmvwpHubypfgi99/24/2024 2:30 01/26/2024 2:17 PM Advance Directive Response [...] MR lumbar spine without contrast Jennie Colon, FIELD RETURN REPAIRER-TECHNICAL PROFESSIONAL [address] [address] [facility] [address] [place] [address] Phone: [phone] Referral IDStatusReasonStart DateExpiration DateVisits RequestedVisits [id number] Review/ Additional Source Comments Reason for Visit (unrecogniz ed section and content) ReasonCommentsBack PainReasonCommentsAbdominal PainUpper mid began 0400 Sat. Thinks its from bad vegetablesEmesisDiarrheaReasonCommentsAnkle PainRolled right ankle on a tree jalpufCshwlvKsckikdmCxvder-dfRemdcfYijyrehvHsmr-me VisitReason CommentsBreast ProblemReasonCommentsdiscuss procedurePt wants to discuss a hysterectomy vs. An ablationReasonCommentsEndometrial BiopsyPre-op VisitReason CommentsBack PainPatient states he has a herniated disk in her L5, S1. [facility] butcan't get in until late [...] site of digit, initial encounter Nicole Lockwood, FIELD RETURN REPAIRER-TECHNICAL PROFESSIONAL [address] [place] [address] Rohit Smith MD [address] [facility] [address] [place] [address] Referral IDStatusReasonStart DateExpiration DateVisits RequestedVisits [id number] Review Specialty Services Required [id number]-ckZt ring mallet finge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 ReasonCommentsFoot PainPT is here today for BL foot pain, Lt is worse. Painful bunion and tailors bunion area. Painful forher constantly, she purchased new shoes.SS: 9.5-10ReasonGal[facility] Hospital Women VisitReasonCommentsPost Op#1Mandy Radha Dumont is [...] would not scan at bedside. Verified with [facility] prior to administration.) Medication Order/ 0.9 [...] DateEnd Date Johnathon Winter MD PCP - [facility]03/08/16Team MemberRelationshipSpecialtyStart DateEnd Date Johnathon Winter MD PCP - [facility]03/08/16Team MemberRelationshipSpecialtyStart DateEnd Date Johnathon Winter MD [facility] - [facility]/08/16Team MemberRelationshipSpecialtyStart DateEnd Date Johnathon Winter MD [address] [place] [address] PCP - [facility]12/12/22 Team Status: Active Member Role Status [...] DateEnd Date Johnathon Winter MD [address] [place] [id number] PCP - [facility]12/12/22Team MemberRelationshipSpecialtyStart DateEnd Date Johnathon Winter MD [address] [place] [address] PCP - GeneralFamily Medicine12/12/22Team MemberRelationshipSpecialtyStart DateEnd Date Johnathon Winter MD [address] [place] [address] PCP - GeneralFamily Medicine12/12/22Team MemberRelationshipSpecialtyStart DateEnd Date Johnathon Winter MD [address] [place] [address] PCP - GeneralFamily Medicine12/12/22Team MemberRelationshipSpecialtyStart DateEnd Date Johnathon Winter MD [address] [place] [address] PCP - GeneralFamily Medicine12/12/22Team MemberRelationshipSpecialtyStart DateEnd Date Johnathon Winter MD [address] [place] [address] PCP - GeneralFamily Medicine12/12/22Team MemberRelationshipSpecialtyStart DateEnd Date Johnathon Winter MD [address] [place] [address] PCP - GeneralFamily Medicine12/12/22Team MemberRelationshipSpecialtyStart DateEnd Date Johnathon Winter MD [address] [place] [address] PCP - GeneralFamily Medicine12/12/22Team MemberRelationshipSpecialtyStart DateEnd Date Johnathon Winter MD [address] [place] [address] PCP - Fpbnyok52/11/23Team MemberRelationshipSpecialtyStart DateEnd Date Johnathon Winter MD [address] [place] [address] PCP - [facility]12/12/22 Team Status: Active Member Role Status [...] 2024Team MemberRelationshipSpecialtyStart DateEnd Date Johnathon Winter MD [address] [place], [place] [address] PCP [facility]03/13/23Team MemberRelationshipSpecialtyStart DateEnd Date Johnathon Winter MD [address] [place], [place] [address] PCP [facility]03/13/23 Team Status: Active Member Role Status Dates Johnathon Winter MD Primary Care Provide r, Attending Provider Active Start: April 15, 2024 Team MemberRelationshipSpecialtyStart DateEnd Date Johnathon Winter MD [address] [place] [address] PCP - Enmpuyq64/11/23Team MemberRelationshipSpecialtyStart DateEnd Date Johnathon Winter MD [address] [facility] [place] [address] PCP - Yhfcjds27/11/23Team MemberRelationshipSpecialtyStart DateEnd Date Johnathon Winter MD [address] [facility] [place] [address] PCP - Virpejd63/11/23Team MemberRelationshipSpecialtyStart DateEnd Date Johnathon Winter MD [address] [facility] [place] [address] PCP - Yznjovw10/11/23Team MemberRelationshipSpecialtyStart DateEnd Date Johnathon Winter MD [address] [facility] [place] [address] PCP - Fyxcpws83/11/23Team MemberRelationshipSpecialtyStart DateEnd Date Johnathon Winter MD [address] [facility] [address] PCP - GeneralFamily Medicine12/12/22Team MemberRelationshipSpecialtyStart DateEnd Date Johnathon Winter MD [address] [facility] [address] PCP - GeneralFamily Medicine12/12/22Team MemberRelationshipSpecialtyStart DateEnd Date Johnathon Winter MD [address] [facility] [address] PCP - GeneralFamily Medicine12/12/22Team MemberRelationshipSpecialtyStart DateEnd Date Johnathon Winter MD [address] [place] [address] PCP - GeneralFamily Medicine12/12/22Team MemberRelationshipSpecialtyStart DateEnd Date Johnathon Winter MD [address] [place] [address] PCP - GeneralFamily Medicine12/12/22Team MemberRelationshipSpecialtyStart DateEnd Date Johnathon Winter MD [address] [facility] [place] [address] PCP - Ekkmxda38/11/23Team MemberRelationshipSpecialtyStart DateEnd Date Johnathon Winter MD [address] [place] [address] PCP - GeneralFamily Medicine12/12/22Team MemberRelationshipSpecialtyStart DateEnd Date Johnathon Winter MD [address] [place] [address] PCP - GeneralFamily Medicine12/12/22Team MemberRelationshipSpecialtyStart DateEnd Date Johnathon Winter MD [address] [place] [address] PCP - GeneralFamily Medicine12/12/22Team MemberRelationshipSpecialtyStart DateEnd Date Johnathon Winter MD [address] [place] [address] PCP - GeneralFamily Medicine12/12/22Team MemberRelationshipSpecialtyStart DateEnd Date Johnathon Winter MD [address] [facility] [place] [address] PCP - Bfnbydx20/11/23Team MemberRelationshipSpecialtyStart DateEnd Date Johnathon Winter MD [address] [place] [address] PCP - GeneralFamily Medicine12/12/22Team MemberRelationshipSpecialtyStart DateEnd Date Johnathon Winter MD [address] [place] [address] PCP - GeneralFamily Medicine12/12/22Team MemberRelationshipSpecialtyStart DateEnd Date Johnathon Winter MD [address] [facility] [address] PCP - GeneralFamily Medicine12/12/22Team MemberRelationshipSpecialtyStart DateEnd Date Johnathon Winter MD [address] [facility] [address] PCP - GeneralFamily Medicine12/12/22Team MemberRelationshipSpecialtyStart DateEnd Date Johnathon Winter MD [address] [place] [address] PCP - GeneralFamily Medicine12/12/22Team MemberRelationshipSpecialtyStart DateEnd Date Johnathon Winter MD [address] [place] [address] PCP - GeneralFamily Medicine9/11/23Team MemberRelationshipSpecialtyStart DateEnd Date Johnathon Winter MD [address] [facility] [address] PCP - GeneralFamily Medicine12/12/22Team MemberRelationshipSpecialtyStart DateEnd Date Johnathon Winter MD [address] [facility] [address] PCP - GeneralFamily Medicine12/12/22Team MemberRelationshipSpecialtyStart DateEnd Date Johnathon Winter MD [address] [facility] [address] PCP - GeneralFamily Medicine12/12/22Team MemberRelationshipSpecialtyStart DateEnd Date Johnathon Winter MD [address] [facility] [place] [address] PCP - Qiouiot53/11/23 INFORMATION SOURCE (unrecogn ized section and content) DATE CREATED AUTHOR 07/17/2022 [facility] DATE CREATED AUTHOR AUTHOR'S ORGANIZ ATION 10/12/2022 [facility] DATE CREATED AUTHOR AUTHOR'S ORGANIZ ATION 12/14/2023 [facility] DATE CREATED AUTHOR AUTHOR'S ORGANIZ ATION 01/26/2024 [facility] DATE CREATED AUTHOR AUTHOR'S ORGANIZ ATION 07/09/[address] [facility] DATE CREATED AUTHOR AUTHOR'S ORGANIZ ATION 11/01/2024 [facility] DATE CREATED AUTHOR AUTHOR'S ORGANIZ ATION 01/11/2025 [facility] DATE CREATED AUTHOR AUTHOR'S ORGANIZ ATION 01/17/2025 [facility] DATE CREATED AUTHOR AUTHOR'S ORGANIZ ATION 01/30/2025 [facility] EPIC DATE CREATED AUTHOR AUTHOR'S BEBETO SWAN 02/10/2025 [facility] Goals (unrecognized section and content) [...] BE BASED ON THE PRIMARY CLINICAL RECORDS. [facility]. provides no warranty or guarantee of the accuracy or completeness of information in this document.
--- NOTE | 2025-03-12 11:23 | PM.CN ---
Consult Note: HPI Data of Consult Patient: known to practice within the last 3 years Consult date: 03/12/25 Requesting Physician: Minnie Johnson NP Primary Care Provider: Radha Sanchez MD Consult Narrative Reason for consult: low back pain Narrative: Karuna Dumont a pleasant 44 year old female presents for evaluation and management of chronic low back pain. Historically failed formal PT greater than 6 weeks and within the last 12 months she has failed HEP > 6 weeks without benefit, failed tylenol, motrin, and sulindac. No new injury or falls. pain today 0/10 sharp shooting increasing to 5/10 at times. since last visit she was evaluated by NS who recommended no surgical intervention. pt underwent bilateral L5-S1 TFESI with >80% improvement ongoing. cc:: CC: Minnie Johnson NP Review of Systems ROS Musculoskeletal Denies: back pain PFSH [facility] Medical History (Updated 01/16/25 @ 10:53 by Minnie Johnson NP) DDD (degenerative disc disease) Back pain ?M54.9 - Dorsalgia, unspecified (ICD-10) Anemia ?D64.9 - Anemia, unspecified (ICD-10) Panic attacks ?F41.0 - Panic disorder [episodic paroxysmal anxiety] (ICD-10) Abnormal uterine bleeding ?N93.9 - Abnormal uterine and vaginal bleeding, unspecified (ICD-10) Menorrhagia ?N92.0 - Excessive and frequent menstruation with regular cycle (ICD-10) Pelvic pain ?R10.2 - Pelvic and perineal pain (ICD-10) Diverticulosis ?K57.90 - Diverticulosis of intestine, part unspecified, without perforation or abscess without bleeding (ICD-10) IBS (irritable bowel syndrome) ?K58.9 - Irritable bowel syndrome without diarrhea (ICD-10) PCOS (polycystic ovarian syndrome) ?E28.2 - Polycystic ovarian syndrome (ICD-10) Cervical cerclage suture present ?O34.30 - Maternal care for cervical incompetence, unspecified trimester (ICD-10) White coat syndrome with high blood pressure without hypertension ?R03.0 - Elevated blood-pressure reading, without diagnosis of hypertension (ICD-10) Migraines ?G43.909 - Migraine, unspecified, not intractable, without status migrainosus (ICD-10) Metabolic syndrome ?E88.810 - Metabolic syndrome (ICD-10) Insulin resistance ?E88.819 - Insulin resistance, unspecified (ICD-10) History of PCOS ?Z87.42 - Personal history of other diseases of the female genital tract (ICD-10) ADHD ?F90.9 - Attention-deficit hyperactivity disorder, unspecified type (ICD-10) Surgical History History of myringotomy ?Z98.890 - Other specified postprocedural states (ICD-10) History of appendectomy ?Z90.49 - Acquired absence of other specified parts of digestive tract (ICD-10) History of breast biopsy ?Z98.890 - Other specified postprocedural states (ICD-10) S/P breast biopsy, left ?Z98.890 - Other specified postprocedural states (ICD-10) H/O tubal ligation ?Z98.51 - Tubal ligation status (ICD-10) H/O section ?Z98.891 - History of uterine scar from previous surgery (ICD-10) History of cervical cerclage ?Z98.890 - Other specified postprocedural states (ICD-10) Status post appendectomy ?Z90.49 - Acquired absence of other specified parts of digestive tract (ICD-10) Hx of cholecystectomy ?Z90.49 - Acquired absence of other specified parts of digestive tract (ICD-10) Family History Other Cancer Delayed recovery from anesthesia Family history of diabetes mellitus Family history of myocardial infarction Social History Within the past year, how often did you have a drink containing alcohol: never Score interpretation: A score less than 3 is consistent with normal alcohol consumption. Smoking status: Never smoker Non-prescribed substance use: denies use Highest level of school completed/degree received: some college, no degree Meds Home Medications and Allergies Home Medications ?Medication ?Instructions ?Recorded ?Confirmed ?Type tirzepatide 10 mg/0.5 mL 10 mg subcut QWEEK 12/12/23 02/24/25 History subcutaneous pen injector (Mounindianaro) amlodipine 5 mg tablet 5 mg PO DAILY 01/06/25 02/24/25 History hydroxyzine HCl 25 mg tablet 25 mg PO DAILY 01/06/25 02/24/25 History lisdexamfetamine 40 mg capsule 40 mg PO DAILY 01/06/25 02/24/25 History (Vyvanse) losartan 100 mg tablet 100 mg PO DAILY 01/06/25 02/24/25 History metoprolol succinate 50 mg 50 mg PO DAILY 01/06/25 02/24/25 History tablet,extended release 24 hr diclofenac sodium 50 mg 50 mg PO BID 02/05/25 02/24/25 History tablet,delayed release fluoxetine 10 mg capsule (Prozac) 10 mg PO DAILY 02/05/25 02/24/25 History Allergies Allergy/AdvReac Type Severity Reaction Status Date / Time adhesive tape Allergy Rash Verified 02/24/25 11:58 topiramate Allergy eyeballs Verified 02/24/25 11:58 feel like hard boiled eggs Exam Constitutional Documenting provider has reviewed patient's vital signs: yes Common normals: no apparent distress, oriented x3 and alert General appearance: cooperative HENMT Common normals: normocephalic, hearing grossly normal bilaterally and moist oral mucous membranes Head and scalp: normocephalic Eye Common normals: PERRL Pupil: PERRL Neck & C-Spine Common normals: full ROM General: normal visual inspection Chest Common normals: inspection of chest normal Respiratory Common normals: normal respiratory effort, no retractions and no use of accessory muscles Back & Pelvis Lumbar spine/lower back: pain with ROM and lumbar spinal tenderness; ROM not limited, straight leg raise negative right and straight leg raise negative left Other: strength 5/5 in BLE sensation intact BLE Neuro Common normals: oriented x3 Sensorium/orientation: alert Psych Common normals: mental status grossly normal, thought process normal, cooperative, affect normal, speech normal and activity/motor behavior normal Speech: normal speech Thought process: normal thought process Results Additional Findings Additional findings: If on a controlled substance or opioids, I have checked an [place] report on this patient and there are no aberrancies noted in the prescribing history.??If on a controlled substance or opioid a drug screen was completed and reviewed within the last year, and if there has not been a drug screen completed we ordered one today to monitor higher risk, state monitored pain medication use. As part of providing excellent, safe, comprehensive care, the following was completed at our patient's visit: 1. A medication reconciliation and review to ensure accurate knowledge of current/active medications, including asking our patients to inform us about any [id number] medications or herbal remedies/nutritional supplements/alternative remedies. 2. A review to specifically ensure our patients have had annual screening for screening for depression, screening for tobacco use, and screening for unhealthy alcohol use. For concerning screenings had a discussion with the patient, provided patient education, and recommended follow-up with primary care provider when appropriate. If patient noted with a risk of falling, they received education on strength, gait, and balance training to prevent future risk of falling. Portions of this note may have been carried over from the previous visit and updated as appropriate. Please note this office utilizes paper charting in addition to the electronic medical record. A list of current medications, vitals, and PMH is available there as the clinical staff outside of myself do not have access to [facility] charting during the clinic day operations. As part of providing quality comprehensive care the current medications, vitals, and PMH were reviewed in the paper chart. Assessment and Plan Assessment and Plan (1) Degenerative disc disease (DDD) of lumbar region with discogenic back pain and leg pain: (2) Lumbar disc displacement without myelopathy: Plan The patient has had over 3 months of moderate to severe low back and intermittent BLE pain with functional impairment and inadequate response to conservative care including NSAIDS (unless there are contraindication such as concurrent blood thinners), multiple oral or topical pain medications, and home exercise program/physical therapy.? Patient has completed >6 weeks of guided home exercise program and/or formal physical therapy program without relief of their symptoms.? The Oswestry Disability Index was completed, and the patient scored a 6%.? status post bilateral L5-S1 TFESI with >80% improvement ongoing, encouraged pt to limit diclofenac 50mg BID PRN pain take with food. f/u 3 months, sooner if needed
== END 2025-03-12 10:51 | disposition home or self-care (01) ==
LOC: PM 10:50
PROVIDERS: PCP Family Medicine; Visit Provider Nurse Practitioner
DX: M51.362 Other intervertebral disc degeneration, lumbar region with discogenic back pain and lower extremity pain (principal); M51.26 Other intervertebral disc displacement, lumbar region
CPT/HCPCS: G0463